=== PATIENT | male | born 1970 | race Caucasian/White ===

== ENCOUNTER 2017-03-29 11:32 | Inpatient (IN) | payer OTHER ==
[2017-03-29] MEDS ORDERED: NACL 0.9% 1000 ML 1,000 ML IV ONE ×3 (11:44→11:50)
[2017-03-29] MEDS ORDERED: ASPIRIN PO ONE (11:44)
--- NOTE | 2017-03-29 11:44 | Emergency Department Report ---
HPI - General Chief Complaint: Cardiac Arrest/CPR Time Seen by Provider: 03/29/17 11:40 - HPI HPI: 46-year-old male presents to the emergency department by EMS after he had a cardiac arrest. The patient was witnessed going down by his coworkers, as he was working outside,a nd the call out to EMS came at 1051 AM. Bystander CPR was started. The patient was found to be in V. tach. He was given 3 defibrillations, 2 rounds of epinephrine, Narcan, and a half amp of sodium bicarbonate. They had return of spontaneous circulation just prior to presentation and the patient presented unconscious, with a Combitube in place, in sinus tach with a pulse. No known past medical history. He has never been to this facility before. ED Past Medical Hx - Past Medical History Previous Medical History?: No - Social History Smoking Status: Never Smoker ED Review of Systems ROS: Stated complaint: CARDIAC ARREST Other details as noted in HPI Comment: Unobtainable due to pts medical conditions Physical Exam - Physical Exam Vital Signs: Vital Signs 03/29/17 11:35 Pulse Rate 122 H Blood Pressure 119/79 O2 Sat by Pulse 94 Oximetry Physical Exam: GENERAL: Patient is ill-appearing and unresponsive. HENT: Normocephalic. Atraumatic. Patient has moist mucous membranes. EYES: Pupils equal reactive to light bilaterally but sluggish. NECK: Supple. Trachea is midline. CHEST/LUNGS: Clear to auscultation. There is no respiratory distress noted. HEART/CARDIOVASCULAR: Regular. There is mild tachycardia. There is no murmur. ABDOMEN: Abdomen is soft, nontender. Patient has normal bowel sounds. There is no abdominal distention. SKIN: Skin is warm and dry. NEURO: The patient is unresponsive to verbal or painful stimuli. MUSCULOSKELETAL: There is no obvious deformity. There is a palpable radial and femoral pulses. Cap refill less than 3 seconds. ED Course Vital Signs 03/29/17 11:35 Pulse Rate 122 H Blood Pressure 119/79 O2 Sat by Pulse 94 Oximetry - Consultations Consultation #1: 03/29/17 11:52 I spoke with the director radiation oncology research home economist, Dr. Friedman, who would like heparin bolus and drip given, rectal aspirin, and then transportation to the Cytogenetics Technologist. - Intubation Time Out Performed: No Sedative: none Laryngoscope: other (glydescop) Size: 4 ET Tube Size: 7.5 Tube Secured Depth (cm): 24 Tube Secured Location: lips Tube Placement Confirmation: visualized tube passing t, equal breath sounds bilat, confirmation by capnometr Patient Tolerated Procedure: well Intubation Complications: none ED Medical Decision Making - Lab Data Result diagrams: 03/29/17 11:40 03/29/17 11:35 - EKG Data -: EKG Interpreted by Me EKG shows normal: sinus rhythm, axis, intervals (right bundle-branch block), QRS complexes, ST-T waves (large ST elevations to the septal and anterior lateral leads, as well as aVR. There is some mild ST depressions in inferior leads) Rate: tachycardia (120 bpm) - EKG Data When compared to previous EKG there are: previous EKG unavailable Interpretation: acute NC - Radiology Data Radiology results: image reviewed interpreted by me: Chest x-ray does not show any acute process. There are no pleural effusions, obvious pneumonia and there is no pneumothorax. - Medical Decision Making The patient presented unresponsive after having out of hospital cardiac arrest and return of spontaneous circulation. EKG done showed concern for anterior ST elevation NC. Code STEMI was called and the patient went to the Cytogenetics Technologist where he had 100% occlusion of the LAD that was ballooned and stented. The patient will go to the ICU. The labs were ordered in the emergency department but did not return until he was artery in the Cytogenetics Technologist. They showed hypokalemia, hyperglycemia. Patient was accepted for admission by the hospitalist, Dr. Garvin. - Differential Diagnosis dysrhythmia, NC, PE, CVA Critical Care Time: Yes Critical care time in (mins) excluding proc time.: 20 Critical care attestation.: If time is entered above; I have spent that time in minutes in the direct care of this critically ill patient, excluding procedure time. Critical care time spent on this patient during his initial violation, multiple re-evaluations, ordering and interpretation of labs, discussion with the director radiation oncology and hospitalist. This does not include the time spent doing the intubation procedure. Critical Care Time: 20 minutes ED Disposition Clinical Impression: Cardiac arrest, Hypokalemia, Hyperglycemia STEMI (ST elevation myocardial infarction) Qualifiers: Involved coronary artery: LAD coronary artery Qualified Code(s): I21.02 - ST elevation (STEMI) myocardial infarction involving left anterior descending coronary artery Respiratory failure Qualifiers: Chronicity: acute Respiratory failure complication: hypoxia Qualified Code(s): J96.01 - Acute respiratory failure with hypoxia Disposition: DC-09 OP ADMIT IP TO THIS HOSP Is pt being admited?: Yes Condition: Critical Time of Disposition: 13:00
[2017-03-29 11:49] LABS: Hematocrit 43.3 % (35.5-45.6); Hemoglobin 14.3 gm/dl (11.8-15.2); Mean Corpuscular HGB Conc 33 % (32-34); Mean Corpuscular Hemoglobin 33 pg (28-32); Mean Corpuscular Volume 98 fl (84-94); Red Cell Distribution Width 14.6 % (13.2-15.2)
[2017-03-29] MEDS ORDERED: HEPARIN IV ONE (11:50)
[2017-03-29] MEDS ORDERED: ASPIRIN PR ONE (11:51)
[2017-03-29 11:53] LABS: Platelet Count 182 K/mm3 (140-440)
[2017-03-29] MEDS ORDERED: HEPARIN/NS 5000 UNIT/500ML(CATH LAB) 1,000 ML IR ONE (11:58)
[2017-03-29] MEDS ORDERED: CALAN ONE (11:59)
[2017-03-29] MEDS ORDERED: XYLOCAINE 2% INFILTRATI ONE (11:59)
[2017-03-29] MEDS ORDERED: NITROGLYCERIN SYRINGE 3 ML ONE (11:59)
[2017-03-29] MEDS ORDERED: VERSED ONE (12:00)
[2017-03-29] MEDS ORDERED: SUBLIMAZE ONE (12:00)
[2017-03-29] MEDS ORDERED: NACL 0.9% 500 ML 500 ML ONE ×2 (12:00→18:01)
[2017-03-29] MEDS ORDERED: HEPARIN/ 0.45% NACL-25,000 UNIT/500 ML 25,000 UNIT/500 ML BAG IV SCH (12:00)
[2017-03-29 12:01] LABS: INR 1.2 (0.87-1.13)
[2017-03-29 12:02] LABS: Partial Thromboplastin Time 34.8 Sec. (24.2-36.6)
[2017-03-29 12:09] LABS: Creatine Kinase MB 2.3 ng/mL (0.0-4.0)
[2017-03-29 12:11] LABS: Alanine Aminotransferase 25 units/L (7-56); Albumin 3.5 g/dL (3.9-5); BUN/Creatinine Ratio 11; Blood Urea Nitrogen 11 mg/dL (9-20); Calcium 8.8 mg/dL (8.4-10.2); Hemolysis Index 18
[2017-03-29] MEDS ORDERED: HEPARIN SUB-Q ONE (12:15)
[2017-03-29] MEDS: HEPARIN 10,000 UNITS/10 ML ONE ×2 (12:36→13:20)
--- NOTE | 2017-03-29 12:49 | History and Physical Report ---
History of Present Illness Chief complaint: Passed out at work History of present illness: 46 YO Male with No PMH presents to ED for evaluation. Pt is unresponsive and unable to provide history. Pt history taken from ED staff and EMS. Pt was at work today and suddenly passed out around 1050 hrs-which was witnessed by patients coworkers. EMS notified, and upon arrival the patient was found to have V Fib. Pt treated IAW ACLS protocol. The patient was given 3 defibrillations, 2 rounds of epinephrine, Narcan, and a half amp of sodium bicarbonate. Pt found to be in respiratory distress and was intubated and placed on vent support. Cardiology team notified, and patient was taken urgently to label printer, and admitted to ICU. Past History Past Medical History: No medical history (Reviewed) Past Surgical History: No surgical history, Other (reviewed.) Social history: single. denies: smoking, alcohol abuse, prescription drug abuse Family history: no significant family history Medications and Allergies Allergies Allergy/AdvReac Type Severity Reaction Status Date / Time No Known Allergies Allergy Unverified 03/29/17 11:35 Active Meds: Active Medications Sodium Chloride (Nacl 0.9% 1000 Ml) 1,000 mls @ 42 mls/hr IV ONCE ONE Stop: 03/30/17 11:32 Sodium Chloride (Nacl 0.9% 1000 Ml) 1,000 mls @ 42 mls/hr IV ONCE ONE Stop: 03/30/17 11:32 Heparin Sodium/Sodium Chloride (Heparin/ 0.45% Nacl-25,000 Unit/500 Ml) 25,000 unit in 500 mls @ 20 mls/hr IV TITRATE CHETAN; 1,000 UNITS/HR PRN Reason: Protocol Sodium Chloride (Nacl 0.9% 1000 Ml) 1,000 mls @ 42 mls/hr IV ONCE ONE Stop: 03/30/17 11:38 Potassium Chloride (Kcl 10meq/100ml) 10 meq in 100 mls @ 100 mls/hr IV ONCE ONE Stop: 03/29/17 15:29 Review of Systems ROS unobtainable: due to mental status Exam - Constitutional Vitals: Temp Pulse Resp BP Pulse Ox 122 H 119/79 94 03/29/17 11:35 03/29/17 11:35 03/29/17 11:35 General appearance: Present: severe distress - EENT Eyes: Present: miosis - Neck Neck: Present: supple, normal ROM - Respiratory Respiratory effort: labored Respiratory: bilateral: diminished - Cardiovascular Heart Sounds: Present: S1 & S2. Absent: rub, click - Extremities Extremities: pulses symmetrical, No edema Peripheral Pulses: within normal limits - Abdominal General gastrointestinal: Present: soft, non-tender, non-distended, normal bowel sounds Male genitourinary: Present: normal - Integumentary Integumentary: Present: clear, warm, dry - Musculoskeletal Musculoskeletal: generalized weakness - Psychiatric Psychiatric: no intact judgment & insight, no memory intact - Neurologic Neurologic: no gait normal Results - Labs CBC & Chem 7: 03/29/17 11:40 03/29/17 11:35 Labs: Abnormal lab results 03/29/17 03/29/17 03/29/17 Range/Units 11:35 11:35 11:40 MCV 98 H (84-94) fl MCH 33 H (28-32) pg PT 15.8 H (12.2-14.9) Sec. INR 1.20 H (0.87-1.13) Potassium 2.7 L* (3.6-5.0) mmol/L Chloride 95.3 L (98-107) mmol/L Carbon Dioxide 17 L (22-30) mmol/L Glucose 435 H (75-100) mg/dL Total Protein 6.1 L (6.3-8.2) g/dL Albumin 3.5 L (3.9-5) g/dL Assessment and Plan - Patient Problems (1) Respiratory failure Current Visit: Yes Status: Acute Qualifiers: Chronicity: acute Respiratory failure complication: hypoxia Qualified Code(s): J96.01 - Acute respiratory failure with hypoxia Plan to address problem: Pt intubated, Placed on vent support, Pulmonary consulted, Wean vent as tolerated, daily SBT, Daily sedation holiday, The high probability of a clinically significant, sudden or life threatening deterioration of the [Pulmonary, cardiac, renal] system(s) required my full and direct attention, intervention and personal management. The aggregate critical care time was [65] minutes. This time is in addition to time spent performing reported procedures but includes the following: [x] Data Review and interpretation [x] Patient assessment and monitoring of vital signs [x] Documentation [x] Medication orders and management (2) CAD (coronary artery disease) Current Visit: Yes Status: Acute Qualifiers: Coronary Disease-Associated Artery/Lesion type: [place] artery [place] vs. transplanted heart: [place] heart Associated angina: with unstable angina Qualified Code(s): I25.110 - Atherosclerotic heart disease of [place] coronary artery with unstable angina pectoris Plan to address problem: Cardiology consulted, Pt taken to label printer, heparin drip, (3) Cardiac arrest Current Visit: Yes Status: Acute Plan to address problem: Pt taken to label printer, heparin drip, cardiology consulted, IV pressor support as clinically indicated, (4) STEMI (ST elevation myocardial infarction) Current Visit: Yes Status: Acute Qualifiers: Involved coronary artery: LAD coronary artery Qualified Code(s): I21.02 - ST elevation (STEMI) myocardial infarction involving left anterior descending coronary artery Plan to address problem: Cardiology consulted, Cardiac cath, heparin drip, ICU monitoring, supportive care. (5) DVT prophylaxis Current Visit: Yes Status: Acute
[2017-03-29] MEDS ORDERED: PROVENTIL IH PRN (12:55)
[2017-03-29] MEDS ORDERED: D50W (25GM) Syringe IV PRN (12:55)
[2017-03-29] MEDS ORDERED: MIDAZOLAM 100 MG in NACL 0.9% 80 ML IV SCH ×2 (13:00→17:00)
[2017-03-29] MEDS ORDERED: fentaNYL DRIP Premix 2,000 MCG/100 ML BAG IV SCH (13:00)
[2017-03-29] MEDS ORDERED: AGGRASTAT DRIP (12.5 MG/250 ML) 12,500 MCG/250 ML BAG IV ONE (13:06)
[2017-03-29 13:16] LABS: Total Cells Counted 100
[2017-03-29 13:17] LABS: Anisocytosis Few; Band Neutrophils # (Manual) 0.2 K/mm3; Basophils % (Manual) 0 % (0.0-1.8)
[2017-03-29] MEDS ORDERED: AGGRASTAT DRIP (12.5 MG/250 ML) 12,500 MCG/250 ML BAG IV SCH (13:30)
--- NOTE | 2017-03-29 13:45 | Consultation ---
History of Present Illness Consult date: 03/29/17 Consult reason: cardiac arrest History of present illness: 46y M who presented with out of hospital VF arrest. Post resuscitation ECG in ER was acute anterior STEMI. Emergency cath protocol called, we found 100% occlusion of the LAD in its prox- mid segment. Successful primari PCI-angioplasty and 3.0-3.5mm BM stents deployed. LAD flow restored-excellent result. Admit for post MS supportive menegement. Past History Family history: CAD Medications and Allergies Allergies Allergy/AdvReac Type Severity Reaction Status Date / Time No Known Allergies Allergy Unverified 03/29/17 11:35 Active Meds: Active Medications Albuterol (Proventil) 2.5 mg IH Q3HRT PRN PRN Reason: Shortness Of Breath Atorvastatin Calcium (Lipitor) 20 mg PO QHS CHETAN Clopidogrel Bisulfate (Plavix) 75 mg PO QDAY CHETAN Dextrose (D50w (25gm) Syringe) 50 ml IV PRN PRN PRN Reason: Hypoglycemia Sodium Chloride (Nacl 0.9% 1000 Ml) 1,000 mls @ 42 mls/hr IV ONCE ONE Stop: 03/30/17 11:32 Sodium Chloride (Nacl 0.9% 1000 Ml) 1,000 mls @ 42 mls/hr IV ONCE ONE Stop: 03/30/17 11:32 Heparin Sodium/Sodium Chloride (Heparin/ 0.45% Nacl-25,000 Unit/500 Ml) 25,000 unit in 500 mls @ 20 mls/hr IV TITRATE CHETAN; 1,000 UNITS/HR PRN Reason: Protocol Sodium Chloride (Nacl 0.9% 1000 Ml) 1,000 mls @ 42 mls/hr IV ONCE ONE Stop: 03/30/17 11:38 Potassium Chloride (Kcl 10meq/100ml) 10 meq in 100 mls @ 100 mls/hr IV ONCE ONE Stop: 03/29/17 15:29 Fentanyl Citrate (Fentanyl Drip Premix) 2,000 mcg in 100 mls @ 4.309 mls/hr IV TITR CHETAN; 1 MCG/KG/HR PRN Reason: Protocol Midazolam HCl 100 mg/ Sodium (Chloride) 100 mls @ 2 mls/hr IV TITR CHETAN; 2 MG/HR PRN Reason: Protocol Sodium Chloride (Nacl 0.9% 1000 Ml) 1,000 mls @ 100 mls/hr IV DIRECT CHETAN Stop: 03/30/17 01:59 Lisinopril (Zestril) 5 mg PO QDAY [facility] Metoprolol Tartrate (Lopressor) 50 mg PO BID [facility] Nitroglycerin (Nitro-Bid 2%) 1 inch TP QIDNTG CHETAN PRN Reason: Protocol Pantoprazole Sodium (Protonix) 40 mg PO QDAY [facility] Review of Systems ROS unobtainable: due to endotracheal tube, due to mental status Physical Examination Vital Signs Pulse BP Pulse Ox 122 H 119/79 94 03/29/17 11:35 03/29/17 11:35 03/29/17 11:35 General appearance: other (unresponsive, vent) HEENT: Positive: Other (unresponsive, vent) Neck: Positive: neck supple Cardiac: Positive: Reg Rate and Rhythm Lungs: Positive: Decreased Breath Sounds Neuro: Positive: Other (unresponsive post VF arrest) Abdomen: Positive: Soft Male genitourinary: Positive: deferred Skin: Positive: Clear Extremities: Absent: edema Results 03/29/17 11:40 03/29/17 11:35 Cardiac Enzymes 03/29/17 Range/Units 11:35 AST 32 (5-40) units/L CK-MB (CK-2) 2.3 (0.0-4.0) ng/mL Coagulation 03/29/17 Range/Units 11:35 PT 15.8 H (12.2-14.9) Sec. INR 1.20 H (0.87-1.13) APTT 34.8 (24.2-36.6) Sec. CBC 03/29/17 Range/Units 11:40 WBC 10.5 (4.5-11.0) K/mm3 RBC 4.40 (3.65-5.03) M/mm3 Hgb 14.3 (11.8-15.2) gm/dl Hct 43.3 (35.5-45.6) % Plt Count 182 (140-440) K/mm3 Comprehensive Metabolic Panel 03/29/17 Range/Units 11:35 Sodium 141 (137-145) mmol/L Potassium 2.7 L* (3.6-5.0) mmol/L Chloride 95.3 L (98-107) mmol/L Carbon Dioxide 17 L (22-30) mmol/L BUN 11 (9-20) mg/dL Creatinine 1.0 (0.8-1.5) mg/dL Glucose 435 H (75-100) mg/dL Calcium 8.8 (8.4-10.2) mg/dL AST 32 (5-40) units/L ALT 25 (7-56) units/L Alkaline Phosphatase 112 (35-129) units/L Total Protein 6.1 L (6.3-8.2) g/dL Albumin 3.5 L (3.9-5) g/dL EKG interpretations - Telemetry EKG Rhythm: Sinus Rhythm Assessment and Plan - Patient Problems (1) Cardiac arrest Current Visit: Yes Status: Acute Plan to address problem: Emergency cath protocol called, we found 100% occlusion of the LAD in its prox- mid segment. Successful primari PCI-angioplasty and 3.0-3.5mm BM stents deployed. LAD flow restored-excellent result. (2) STEMI (ST elevation myocardial infarction) Current Visit: Yes Status: Acute Plan to address problem: Emergency cath protocol called, we found 100% occlusion of the LAD in its prox- mid segment. Successful primari PCI-angioplasty and 3.0-3.5mm BM stents deployed. LAD flow restored-excellent result.
--- NOTE | 2017-03-29 13:59 | Cardiac Catherization Report ---
CARDIAC CATHETERIZATION AND CORONARY ANGIOPLASTY REASON FOR PROCEDURE: The patient is a 46-year-old man with a strong history of coronary artery disease, but no previous personal cardiac history. He was brought to the Emergency Room following an out of hospital cardiac arrest. He apparently had been defibrillated x 3 in the field. In the Emergency Room, he was resuscitated and post-resuscitation ECG demonstrated acute anterior wall ST elevation myocardial infarction. Emergency cardiac catheterization protocol was activated and we were asked to perform an emergency cardiac catheterization. On arrival to the chemical laboratory assistant, the patient is unresponsive, on the ventilator. Blood pressure was 110 systolic and sinus rhythm at 90 beats per minute. PROCEDURE: 1. Selective left and right coronary angiography. 2. Left heart catheterization. 3. Angioplasty and coronary stenting of the left anterior descending artery. DESCRIPTION OF PROCEDURE: The patient was prepped and draped under emergency protocol. Right femoral artery was entered using the Seldinger technique followed by placement of a 6-Welsh sheath. Selective left and right coronary angiography was performed. A right L[place] diagnostic catheter was used for right coronary angiography. A 3.5 XB guiding catheter was used for left ventricle angiography. The angiograms were reviewed. The right coronary artery was a small caliber, nondominant vessel that contained mild irregularities. The left main coronary artery was free of significant disease. The left anterior descending artery was completely occluded in its proximal segment following a proximal, medium sized diagonal branch. The complete occlusion of the proximal LAD is infarct-related lesion. The circumflex artery was a large dominant system. There was a 50-60% ostial narrowing of the mid obtuse marginal branch, otherwise the circumflex and its distal branches including the left posterior descending branch contained mild irregularities. CORONARY ANGIOPLASTY: Ad-hoc, primary angioplasty of the LAD was performed. We introduced a 0.014 inch Fiction Writer 50 guidewire, successfully penetrating the occluded vessel. Following wire placement in the LAD, we performed a balloon angioplasty using a 3.0 mm balloon catheter. Following this, ANDREW 3 flow was restored, but there was significant residual occlusive lesion at the primary site. We then deployed serial 3.0-3.5 mm bare metal stents covering the entire lesional segment of the proximal to mid LAD. Following stenting, there was an excellent angiographic result at the treated site, 0 residual stenosis, and ANDREW 3 flow was restored. There was mild ostial narrowing of the diagonal branch adjacent to the lesional segment. This was due to stent detention from the newly deployed LAD stent. ANDREW 3 flow was maintained in the branch vessel and no further interventions were recommended for this mild ostial narrowing of the diagonal. Following the procedure, the patient remained in stable sinus rhythm with stable hemodynamics. He remains in critical condition on the ventilator, unresponsive, and thus admitted to the CCU. CONCLUSION: 1. Acute anterior wall myocardial infarction complicated by an out of hospital cardiac arrest. 2. Emergency cardiac catheterization. 3. A 100% occlusion of the proximal left anterior descending artery. 4. Successful primary angioplasty and stenting of the LAD, 3.0-3.5 mm bare metal stents with jewish of ANDREW 3 flow. JOB# [id number] CARMEN/JENNIFER
[2017-03-29] MEDS ORDERED: NACL 0.9% 1000 ML 1,000 ML IV SCH (14:00)
[2017-03-29] MEDS ORDERED: ATIVAN ONE (14:21)
[2017-03-29] MEDS ORDERED: NACL 0.9% 1000 ML 1,000 ML ONE (14:26)
[2017-03-29] MEDS ORDERED: KCL 10MEQ/100ML 10 MEQ/100 ML BAG IV ONE (14:30)
[2017-03-29] MEDS ORDERED: VERSED IV ONE ×2 (14:41→16:00)
--- NOTE | 2017-03-29 15:14 | Event Note ---
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 ATivan 2 mg given prior to my arrival but on my order. Patient not seizing at the moment. Unfortunately is still having myoclonic jerking, likely secondary to anoxic brain injury from poor perfusion during Vfib arrest. Started on Versed drip but will wean aggressively. Tachycardic and normal BP. Has thick brown secretions from nose. Asked nursing to place NG tube and go on intermittent suction. Will place lazaro. Vent orders placed. ABG donew with PaO2 of 602 on 10 of PEEP and 100%. pH is 7.29. Spoke with family in waiting room. Significant history of cardiac disease in family and first degree relative. Explained that prognosis right now is poor, based up neurologic findings. As I explained to the family, patient was not responsive, prior to administration of ant-epileptic therapy. Suggest the followin. Neuro consult with EEG 2. Vent support 3. NG tube to suction for next 24 hours, if miminal output feed 4. Defer to cards but may need echo 5. Electrolyte replacement and glucose control per IMS 6. Place lazaro 7. Wean sedation. CCT 31 minutes.
[2017-03-29] MEDS ORDERED: ATIVAN IV ONE (15:15)
--- NOTE | 2017-03-29 15:37 | XRay Report ---
AP chest x-ray. History: Chest pain. Findings: The heart and lungs are within normal limits. An endotracheal tube is in satisfactory position.
--- NOTE | 2017-03-29 15:38 | XRay Report ---
AP chest x-ray. History: ET tube placement. Findings: The heart and lungs are within normal limits. Endotracheal tube is in satisfactory position.
[2017-03-29] MEDS: NITRO-BID 2% TP SCH ×2 (15:48→20:23)
[2017-03-29] MEDS ORDERED: LEVOPHED DRIP 4 MG/NS 250 ML 4 MG/250 ML BAG IV ONE (16:17)
[2017-03-29] MEDS ORDERED: DIPRIVAN 10 MG/ML 1,000 MG/100 ML BOTTLE IV ONE (16:55)
--- NOTE | 2017-03-29 16:56 | Event Note ---
Date: 03/29/17 Called by nursing, despite versed drip, patient continues to have convulsions. Will have to start propofol drip. No ideal given current clinical state but need to attempt to abort jerking activity. Will ask RT to place art line.
[2017-03-29] MEDS: DIPRIVAN 10 MG/ML 1,000 MG/100 ML BOTTLE IV SCH ×3 (17:47→23:49)
[2017-03-29 21:22] LABS: Chol/HDL Ratio 3.72 %; HDL Cholesterol 44 mg/dL (40-59); LDL Cholesterol,Direct 81 mg/dL (50-130)
[2017-03-29 21:49] LABS: Creatine Kinase MB > 300.0 ng/mL (0.0-4.0)
[2017-03-29] MEDS: LEVOPHED DRIP 4 MG/NS 250 ML 4 MG/250 ML BAG IV SCH (22:19)
[2017-03-29] MEDS: LOPRESSOR PO SCH (22:22)
--- NOTE | 2017-03-30 02:31 | XRay Report ---
FINAL REPORT EXAM: XR CHEST 1V AP HISTORY: post pci TECHNIQUE: A portable semi-erect view of the chest was obtained. There are no previous studies available for comparison. FINDINGS: Heart size mediastinum appear normal. The lungs are not overtly congested. There is patchy airspace disease in the medial aspect of the right lung base. Pleural fluid is not seen. The tip of the ET tube is 3.8 cm above the khurram. There is an NG tube coursing into the stomach. The bones and soft tissues otherwise do not show any acute changes. IMPRESSION: Satisfactory intubation and placement NG tube. Patchy airspace disease in the right lung base. Underlying pneumonia cannot be excluded.
[2017-03-30] MEDS: DIPRIVAN 10 MG/ML 1,000 MG/100 ML BOTTLE IV SCH ×2 (03:22→07:10)
[2017-03-30 04:28] LABS: Hematocrit 42.6 % (35.5-45.6); Hemoglobin 14.5 gm/dl (11.8-15.2); Mean Corpuscular HGB Conc 34 % (32-34); Mean Corpuscular Hemoglobin 32 pg (28-32); Mean Corpuscular Volume 93 fl (84-94); Platelet Count 192 K/mm3 (140-440); Red Blood Count 4.57 M/mm3 (3.65-5.03)
[2017-03-30 04:48] LABS: BUN/Creatinine Ratio 28; Blood Urea Nitrogen 25 mg/dL (9-20); Calcium 8.1 mg/dL (8.4-10.2); Hemolysis Index 6
[2017-03-30 05:14] LABS: Creatine Kinase MB > 300.0 ng/mL (0.0-4.0)
[2017-03-30 05:53] LABS: Band Neutrophils # (Manual) 3.3 K/mm3; Basophils % (Manual) 0 % (0.0-1.8); Eosinophils % (Manual) 0 % (0.0-4.3); Total Cells Counted 100
[2017-03-30 05:54] LABS: Anisocytosis Few
[2017-03-30] MEDS: NITRO-BID 2% TP SCH ×4 (06:24→17:28)
[2017-03-30] MEDS: LEVOPHED DRIP 4 MG/NS 250 ML 4 MG/250 ML BAG IV SCH (07:07)
--- NOTE | 2017-03-30 08:09 | Progress Note ---
Assessment and Plan Assessment and plan: 46 YO Male with No PMH presents to ED for evaluation. Pt is unresponsive and unable to provide history. Pt history taken from ED staff and EMS. Pt was at work today and suddenly passed out around 1050 hrs-which was witnessed by patients coworkers. EMS notified, and upon arrival the patient was found to have V Fib. Pt treated IAW ACLS protocol. The patient was given 3 defibrillations, 2 rounds of epinephrine, Narcan, and a half amp of sodium bicarbonate. Pt found to be in respiratory distress and was intubated and placed on vent support. Cardiology team notified, and patient was taken urgently to label drier, and admitted to ICU. Acute Respiratory failure requiring MV <96 hours Pt intubated, Placed on vent support, Pulmonary consulted, Wean vent as tolerated, daily SBT, Daily sedation holiday, Anterior STEMI sp cardiac arrest case dw cardiology Emergency cath protocol called upon arrival, we found 100% occlusion of the LAD in its prox-mid segment. Successful primari PCI-angioplasty and 3.0-3.5mm BM stents deployed. LAD flow restored-excellent result. Heparin drip was discontinued per cardiology, optimize meds Shock -Likely cardiogenic and possibly also septic shock Currently off pressors, has been weaned Sepsis/Right lower lobe aspiration pneumonia, most likely due to gram-positive bacteria -Started on Zosyn and Vanco, obtain sputum cultures, obtain UA and urine culture -Infectious disease consults Hypokalemia Now resolved Acute encephalopathy Most likely anoxic brain injury, patient has been off sedation and still obtunded and nonresponsive. He likely had aprolonged period of time without perfusion to his brain. We will continue to monitor his mental status, -We'll also obtain brain imaging tomorrow morning and have a family meeting him a and urology consult. The high probability of a clinically significant, sudden or life threatening deterioration of the [Pulmonary, cardiac, renal] system(s) required my full and direct attention, intervention and personal management. The aggregate critical care time was [65] minutes. This time is in addition to time spent performing reported procedures but includes the following: [x] Data Review and interpretation [x] Patient assessment and monitoring of vital signs [x] Documentation [x] Medication orders and management History Interval history: Patient is nonresponsive, lacks most reflexes No fever, no vomiting, no agitation Hospitalist Physical - Physical exam Narrative exam: General.: Comatose HEENT: Moist mucous membranes, extraocular muscles intact, no lymphadenopathy Neck: supple Cardiac: S1-S2 heard Lungs: clear to auscultation bilaterally Abdomen: soft , nontender, nondistended, bowel sounds positive Extremities: no edema clubbing or cyanosis Skin: no rash or lesions Neurologic: Patient is in deep coma - Constitutional Vitals: Temp Pulse Resp BP Pulse Ox 99.2 F 109 H 20 117/69 94 03/30/17 04:00 03/30/17 07:00 03/30/17 07:00 03/30/17 07:00 03/30/17 07:00 General appearance: Present: severe distress Results - Labs CBC & Chem 7: 03/30/17 03:50 03/30/17 03:50 Labs: Laboratory Last Values WBC 19.5 K/mm3 (4.5-11.0) H 03/30/17 03:50 RBC 4.57 M/mm3 (3.65-5.03) 03/30/17 03:50 Hgb 14.5 gm/dl (11.8-15.2) 03/30/17 03:50 Hct 42.6 % (35.5-45.6) 03/30/17 03:50 MCV 93 fl (84-94) 03/30/17 03:50 MCH 32 pg (28-32) 03/30/17 03:50 MCHC 34 % (32-34) 03/30/17 03:50 RDW 14.0 % (13.2-15.2) 03/30/17 03:50 Plt Count 192 K/mm3 (140-440) 03/30/17 03:50 Add Manual Diff Complete 03/30/17 03:50 Total Counted 100 03/30/17 03:50 Seg Neuts % (Manual) 65.0 % (40.0-70.0) 03/30/17 03:50 Band Neutrophils % 17.0 % 03/30/17 03:50 Lymphocytes % (Manual) 7.0 % (13.4-35.0) L 03/30/17 03:50 Reactive Lymphs % (Man) 0 % 03/30/17 03:50 Monocytes % (Manual) 7.0 % (0.0-7.3) 03/30/17 03:50 Eosinophils % (Manual) 0 % (0.0-4.3) 03/30/17 03:50 Basophils % (Manual) 0 % (0.0-1.8) 03/30/17 03:50 Metamyelocytes % 4.0 % 03/30/17 03:50 Myelocytes % 0 % 03/30/17 03:50 Promyelocytes % 0 % 03/30/17 03:50 Blast Cells % 0 % 03/30/17 03:50 Nucleated RBC % Not Reportable 03/30/17 03:50 Seg Neutrophils # Man 12.7 K/mm3 (1.8-7.7) H 03/30/17 03:50 Band Neutrophils # 3.3 K/mm3 03/30/17 03:50 Lymphocytes # (Manual) 1.4 K/mm3 (1.2-5.4) 03/30/17 03:50 Abs React Lymphs (Man) 0.0 K/mm3 03/30/17 03:50 Monocytes # (Manual) 1.4 K/mm3 (0.0-0.8) H 03/30/17 03:50 Eosinophils # (Manual) 0.0 K/mm3 (0.0-0.4) 03/30/17 03:50 Basophils # (Manual) 0.0 K/mm3 (0.0-0.1) 03/30/17 03:50 Metamyelocytes # 0.8 K/mm3 03/30/17 03:50 Myelocytes # 0.0 K/mm3 03/30/17 03:50 Promyelocytes # 0.0 K/mm3 03/30/17 03:50 Blast Cells # 0.0 K/mm3 03/30/17 03:50 WBC Morphology Not Reportable 03/30/17 03:50 Hypersegmented Neuts Not Reportable 03/30/17 03:50 Hyposegmented Neuts Not Reportable 03/30/17 03:50 Hypogranular Neuts Not Reportable 03/30/17 03:50 Smudge Cells Not Reportable 03/30/17 03:50 Toxic Granulation Not Reportable 03/30/17 03:50 Toxic Vacuolation Not Reportable 03/30/17 03:50 Dohle Bodies Not Reportable 03/30/17 03:50 Pelger-Huet Anomaly Not Reportable 03/30/17 03:50 Sherry Rods Not Reportable 03/30/17 03:50 Platelet Estimate Appears normal 03/30/17 03:50 Clumped Platelets Not Reportable 03/30/17 03:50 Plt Clumps, EDTA Not Reportable 03/30/17 03:50 Large Platelets Not Reportable 03/30/17 03:50 Giant Platelets Not Reportable 03/30/17 03:50 Platelet Satelliting Not Reportable 03/30/17 03:50 Plt Morphology Comment Not Reportable 03/30/17 03:50 RBC Morphology Not Reportable 03/30/17 03:50 Dimorphic RBCs Not Reportable 03/30/17 03:50 Polychromasia Not Reportable 03/30/17 03:50 Hypochromasia Not Reportable 03/30/17 03:50 Poikilocytosis Not Reportable 03/30/17 03:50 Anisocytosis Few 03/30/17 03:50 Microcytosis Not Reportable 03/30/17 03:50 Macrocytosis Not Reportable 03/30/17 03:50 Spherocytes Not Reportable 03/30/17 03:50 Pappenheimer Bodies Not Reportable 03/30/17 03:50 Sickle Cells Not Reportable 03/30/17 03:50 Target Cells Not Reportable 03/30/17 03:50 Tear Drop Cells Not Reportable 03/30/17 03:50 Ovalocytes Not Reportable 03/30/17 03:50 Helmet Cells Not Reportable 03/30/17 03:50 [place] Bodies Not Reportable 03/30/17 03:50 [place] Rings Not Reportable 03/30/17 03:50 [place] Cells Not Reportable 03/30/17 03:50 Bite Cells Not Reportable 03/30/17 03:50 Crenated Cell Not Reportable 03/30/17 03:50 Elliptocytes Not Reportable 03/30/17 03:50 Acanthocytes (Spur) Not Reportable 03/30/17 03:50 Rouleaux Not Reportable 03/30/17 03:50 Hemoglobin C Crystals Not Reportable 03/30/17 03:50 Schistocytes Not Reportable 03/30/17 03:50 Malaria parasites Not Reportable 03/30/17 03:50 Jermaine Bodies Not Reportable 03/30/17 03:50 Hem Pathologist Commnt No 03/30/17 03:50 PT 15.8 Sec. (12.2-14.9) H 03/29/17 11:35 INR 1.20 (0.87-1.13) H 03/29/17 11:35 APTT 34.8 Sec. (24.2-36.6) 03/29/17 11:35 Activated Clotting Time 92 (74-137) 03/29/17 17:47 POC ABG pH 7.434 (7.35-7.45) 03/30/17 06:19 POC ABG pCO2 28.2 (35-45) L 03/30/17 06:19 POC ABG pO2 108 (80-105) H 03/30/17 06:19 POC ABG HCO3 18.9 03/30/17 06:19 POC ABG Total CO2 20 03/30/17 06:19 POC ABG O2 Sat 98 03/30/17 06:19 POC ABG Base Excess -5 03/30/17 06:19 FiO2 50 % 03/30/17 06:19 Sodium 143 mmol/L (137-145) 03/30/17 03:50 Potassium 3.8 mmol/L (3.6-5.0) D 03/30/17 03:50 Chloride 108.9 mmol/L (98-107) H 03/30/17 03:50 Carbon Dioxide 15 mmol/L (22-30) L 03/30/17 03:50 Anion Gap 23 mmol/L 03/30/17 03:50 BUN 25 mg/dL (9-20) H 03/30/17 03:50 Creatinine 0.9 mg/dL (0.8-1.5) 03/30/17 03:50 Estimated GFR > 60 ml/min 03/30/17 03:50 BUN/Creatinine Ratio 28 % 03/30/17 03:50 Glucose 158 mg/dL (75-100) H 03/30/17 03:50 Calcium 8.1 mg/dL (8.4-10.2) L 03/30/17 03:50 Total Bilirubin 0.50 mg/dL (0.1-1.2) 03/29/17 11:35 AST 32 units/L (5-40) 03/29/17 11:35 ALT 25 units/L (7-56) 03/29/17 11:35 Alkaline Phosphatase 112 units/L (35-129) 03/29/17 11:35 Total Creatine Kinase 7963 units/L (55-170) H 03/30/17 03:50 CK-MB (CK-2) > 300.0 ng/mL (0.0-4.0) H 03/30/17 03:50 CK-MB (CK-2) Rel Index 3.7 (0-4) 03/30/17 03:50 Troponin T 6.850 ng/mL (0.00-0.029) H* 03/30/17 03:50 Total Protein 6.1 g/dL (6.3-8.2) L 03/29/17 11:35 Albumin 3.5 g/dL (3.9-5) L 03/29/17 11:35 Albumin/Globulin Ratio 1.3 % 03/29/17 11:35 Triglycerides 195 mg/dL (2-149) H 03/29/17 19:52 Cholesterol 164 mg/dL (50-199) 03/29/17 19:52 LDL Cholesterol Direct 81 mg/dL (50-130) 03/29/17 19:52 HDL Cholesterol 44 mg/dL (40-59) 03/29/17 19:52 Cholesterol/HDL Ratio 3.72 % 03/29/17 19:52 Blood Type O POSITIVE 03/29/17 11:35 Antibody Screen Negative 03/29/17 11:35
[2017-03-30] MEDS: PLAVIX PO SCH (10:00)
[2017-03-30] MEDS ORDERED: VANCOMYCIN PHARMACY TO DOSE IV SCH (10:00)
[2017-03-30] MEDS: PROTONIX PO SCH (10:00)
--- NOTE | 2017-03-30 10:25 | Progress Note ---
Assessment and Plan Out of hospital VF arrest Acute anterior STEMI. s/p PCI of the LAD using BM stents deployed. Respiratory failure intubated on the vent Continue medical therapy with plavix and aspirin without interruption. Echocardiogram for LVEF assessment. Subjective Date of service: 03/30/17 Interval history: Patient remains intubated, unresponsive on the vent. Objective Vital Signs Temp Pulse Resp BP Pulse Ox 03/30/17 10:00 118 H 116/68 03/30/17 09:55 118 H 116/77 94 03/30/17 09:00 113 H 30 H 116/77 96 03/30/17 08:45 110 H 19 106/58 95 03/30/17 08:31 109 H 20 106/58 95 03/30/17 08:15 109 H 22 106/58 94 03/30/17 08:00 99.2 F 108 H 22 106/58 92 03/30/17 07:45 109 H 21 120/68 95 03/30/17 07:31 109 H 23 120/68 95 03/30/17 07:15 112 H 35 H 120/68 95 03/30/17 07:00 109 H 20 117/69 94 03/30/17 06:45 108 H 24 106/59 94 03/30/17 06:30 106 H 25 H 107/61 93 03/30/17 06:15 107 H 32 H 102/60 94 03/30/17 06:00 107 H 29 H 110/63 94 03/30/17 05:45 104 H 32 H 107/62 94 03/30/17 05:30 104 H 29 H 107/63 95 03/30/17 05:15 105 H 25 H 106/61 97 03/30/17 05:01 112 H 16 114/64 96 03/30/17 04:45 107 H 22 110/66 95 03/30/17 04:31 108 H 29 H 108/65 96 03/30/17 04:15 108 H 25 H 111/66 96 03/30/17 04:00 99.2 F 108 H 21 107/68 96 03/30/17 03:45 107 H 22 111/68 03/30/17 03:34 107 H 108/71 98 03/30/17 03:30 107 H 30 H 108/71 96 03/30/17 03:15 107 H 25 H 107/66 96 03/30/17 03:00 106 H 23 106/66 95 03/30/17 02:45 106 H 22 105/68 94 03/30/17 02:31 113 H 34 H 98/64 95 03/30/17 02:15 106 H 29 H 107/62 03/30/17 02:00 107 H 26 H 119/76 94 03/30/17 01:45 109 H 29 H 108/69 95 03/30/17 01:30 108 H 29 H 114/66 96 03/30/17 01:15 110 H 21 110/71 96 03/30/17 01:00 112 H 37 H 116/64 98 03/30/17 00:45 110 H 21 103/68 96 03/30/17 00:31 112 H 30 H 117/64 97 03/30/17 00:15 110 H 32 H 102/66 97 03/30/17 00:01 112 H 31 H 116/65 96 03/30/17 00:00 100 F H 22 100 03/29/17 23:49 113 H 37 H 104/64 98 03/29/17 23:45 114 H 37 H 105/60 98 03/29/17 23:34 112 H 105/70 98 03/29/17 23:30 116 H 29 H 105/70 96 03/29/17 23:15 116 H 40 H 117/67 97 03/29/17 23:00 115 H 31 H 100/70 96 03/29/17 22:45 117 H 30 H 103/70 96 03/29/17 22:30 116 H 25 H 112/68 97 03/29/17 22:15 114 H 30 H 104/67 96 03/29/17 22:01 126 H 17 100/68 96 03/29/17 22:00 120 H 38 H 99 03/29/17 21:45 121 H 31 H 108/73 97 03/29/17 21:30 122 H 32 H 117/72 97 03/29/17 21:15 122 H 31 H 121/41 03/29/17 21:01 127 H 20 96/69 98 03/29/17 20:45 123 H 15 103/55 99 03/29/17 20:31 129 H 18 99/67 03/29/17 20:15 127 H 44 H 95/31 99 03/29/17 20:01 132 H 28 H 105/59 100 03/29/17 20:00 100.1 F H 37 H 99 03/29/17 19:51 130 H 44 H 101/58 100 03/29/17 19:42 127 H 84/58 99 03/29/17 19:41 128 H 45 H 101/58 99 03/29/17 19:31 130 H 47 H 101/58 99 03/29/17 19:20 128 H 43 H 105/59 97 03/29/17 19:10 125 H 50 H 101/65 97 03/29/17 19:00 127 H 46 H 91/67 97 03/29/17 18:51 128 H 49 H 94/64 99 03/29/17 18:41 126 H 28 H 98/66 99 03/29/17 18:30 130 H 39 H 98/66 99 03/29/17 18:21 130 H 37 H 89/60 98 03/29/17 18:11 126 H 51 H 92/63 98 03/29/17 18:00 131 H 47 H 92/63 99 03/29/17 17:51 131 H 40 H 93/63 98 03/29/17 17:47 42 H 03/29/17 17:41 130 H 48 H 99/65 98 03/29/17 17:30 135 H 49 H 99/65 96 03/29/17 17:21 150 H 37 H 181/96 99 03/29/17 17:11 167 H 25 H 181/96 98 03/29/17 17:01 156 H 34 H 142/117 88 03/29/17 16:53 100.4 F H 03/29/17 16:51 135 H 40 H 142/117 100 03/29/17 16:50 153 H 142/117 99 03/29/17 16:41 133 H 33 H 150/107 98 03/29/17 16:31 116 H 35 H 40/15 99 03/29/17 16:30 127 H 84/58 99 03/29/17 16:21 118 H 23 100 03/29/17 16:10 102 H 38 H 70/32 99 03/29/17 16:00 108 H 29 H 70/32 100 03/29/17 15:50 114 H 29 H 99 03/29/17 15:42 113 H 38 H 03/29/17 15:00 117 H 20 138/79 99 03/29/17 14:50 119 H 35 H 124/86 99 03/29/17 14:45 122 H 35 H 111/83 99 03/29/17 14:11 97.9 F 100 H 29 H 152/121 97 03/29/17 11:51 119 H 13 149/104 100 03/29/17 11:40 118 H 11 L 149/104 99 03/29/17 11:35 122 H 119/79 94 03/29/17 11:33 113 H 28 H 93 - Physical Examination General: Other (unresponsive on the vent) Cardiac: Positive: Tachycardia Neuro: Positive: Other (unresponsive post VF arrest) Abdomen: Positive: Soft Skin: Positive: Clear Extremities: Absent: edema - Labs and Meds Cardiac Enzymes 03/29/17 03/29/17 03/30/17 Range/Units 11:35 19:52 03:50 AST 32 (5-40) units/L CK-MB (CK-2) 2.3 > 300.0 H > 300.0 H (0.0-4.0) ng/mL Coagulation 03/29/17 Range/Units 11:35 PT 15.8 H (12.2-14.9) Sec. INR 1.20 H (0.87-1.13) APTT 34.8 (24.2-36.6) Sec. Lipids 03/29/17 Range/Units 19:52 Triglycerides 195 H (2-149) mg/dL Cholesterol 164 (50-199) mg/dL HDL Cholesterol 44 (40-59) mg/dL Cholesterol/HDL Ratio 3.72 % CBC 03/29/17 03/30/17 Range/Units 11:40 03:50 WBC 10.5 19.5 H (4.5-11.0) K/mm3 RBC 4.40 4.57 (3.65-5.03) M/mm3 Hgb 14.3 14.5 (11.8-15.2) gm/dl Hct 43.3 42.6 (35.5-45.6) % Plt Count 182 192 (140-440) K/mm3 Comprehensive Metabolic Panel 03/29/17 03/30/17 Range/Units 11:35 03:50 Sodium 141 143 (137-145) mmol/L Potassium 2.7 L* 3.8 D (3.6-5.0) mmol/L Chloride 95.3 L 108.9 H (98-107) mmol/L Carbon Dioxide 17 L 15 L (22-30) mmol/L BUN 11 25 H (9-20) mg/dL Creatinine 1.0 0.9 (0.8-1.5) mg/dL Glucose 435 H 158 H (75-100) mg/dL Calcium 8.8 8.1 L (8.4-10.2) mg/dL AST 32 (5-40) units/L ALT 25 (7-56) units/L Alkaline Phosphatase 112 (35-129) units/L Total Protein 6.1 L (6.3-8.2) g/dL Albumin 3.5 L (3.9-5) g/dL
[2017-03-30] MEDS: LOPRESSOR PO SCH ×2 (10:26→21:30)
[2017-03-30] MEDS ORDERED: PLAVIX PO ONE (11:00)
[2017-03-30 11:15] LABS: Cannabinoid Screen,Urine PRESUMPTIVE NEGATIVE; Cocaine Screen,Urine PRESUMPTIVE NEGATIVE; Methadone Screen,Urine PRESUMPTIVE NEGATIVE; Opiate Screen,Urine PRESUMPTIVE NEGATIVE
[2017-03-30 11:32] LABS: Amphetamine Screen,Urine PRESUMPTIVE POSITIVE; Benzodiazepines Screen,Urine PRESUMPTIVE POSITIVE
[2017-03-30 11:42] LABS: Amorphous Crystals,Urine 1+; Bilirubin,Urine NEG (Negative); Blood,Urine MOD (Negative); Color,Urine Yellow (Yellow); Urobilinogen,Urine < 2.0 mg/dL (<2.0)
[2017-03-30] MEDS ORDERED: PANCREAZE DR 10,500 UNIT FEEDTUBE PRN (12:06)
[2017-03-30] MEDS ORDERED: SIMPLE SYRUP FEEDTUBE PRN ×2 (12:06)
[2017-03-30] MEDS ORDERED: SODIUM BICARBONATE FEEDTUBE PRN (12:06)
--- NOTE | 2017-03-30 12:07 | Progress Note ---
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 1. Cardiac meds should be administered now that more hemodynamically stable 2. Now that off sedation, needs EEG 3. Follow up Echo 4. Would hold on on long acting antiepileptic therapy and if patient seizes or has activity similar to this again, restart Diprovan 5. Will feed now that off pressors, Nutrition is aware 6. Monitor urine output and renal function, currently remains normal. UDS was done after patient had already been administered sedation so positive for benzo' s. Did have amphetamines in urine as well. Not sure if this is a result of hospital administered medication or not Overall prognosis is very guarded to poor given prolonged amount of downtime. Spoke with family in PACU waiting room on yesterday. Subjective Date of service: 03/30/17 Interval history: Remains unresponsive. Currently all sedation is off. No jerkin activity, or seizure activity noted yet this am. Family present. Has not had echo done yet. Had low grade temps last night. NG tube, left to suction but not with large output. Objective Vital Signs - 12hr 03/30/17 03/30/17 03/30/17 00:01 00:15 00:31 Temperature Pulse Rate 112 H 110 H 112 H Respiratory 31 H 32 H 30 H Rate Blood Pressure 116/65 102/66 117/64 O2 Sat by Pulse 96 97 97 Oximetry 03/30/17 03/30/17 03/30/17 00:45 01:00 01:15 Temperature Pulse Rate 110 H 112 H 110 H Respiratory 21 37 H 21 Rate Blood Pressure 103/68 116/64 110/71 O2 Sat by Pulse 96 98 96 Oximetry 03/30/17 03/30/17 03/30/17 01:30 01:45 02:00 Temperature Pulse Rate 108 H 109 H 107 H Respiratory 29 H 29 H 26 H Rate Blood Pressure 114/66 108/69 119/76 O2 Sat by Pulse 96 95 94 Oximetry 03/30/17 03/30/17 03/30/17 02:15 02:31 02:45 Temperature Pulse Rate 106 H 113 H 106 H Respiratory 29 H 34 H 22 Rate Blood Pressure 107/62 98/64 105/68 O2 Sat by Pulse 95 94 Oximetry 03/30/17 03/30/17 03/30/17 03:00 03:15 03:30 Temperature Pulse Rate 106 H 107 H 107 H Respiratory 23 25 H 30 H Rate Blood Pressure 106/66 107/66 108/71 O2 Sat by Pulse 95 96 96 Oximetry 03/30/17 03/30/17 03/30/17 03:34 03:45 04:00 Temperature 99.2 F Pulse Rate 107 H 107 H 108 H Respiratory 22 21 Rate Blood Pressure 108/71 111/68 107/68 O2 Sat by Pulse 98 96 Oximetry 03/30/17 03/30/17 03/30/17 04:15 04:31 04:45 Temperature Pulse Rate 108 H 108 H 107 H Respiratory 25 H 29 H 22 Rate Blood Pressure 111/66 108/65 110/66 O2 Sat by Pulse 96 96 95 Oximetry 03/30/17 03/30/17 03/30/17 05:01 05:15 05:30 Temperature Pulse Rate 112 H 105 H 104 H Respiratory 16 25 H 29 H Rate Blood Pressure 114/64 106/61 107/63 O2 Sat by Pulse 96 97 95 Oximetry 03/30/17 03/30/17 03/30/17 05:45 06:00 06:15 Temperature Pulse Rate 104 H 107 H 107 H Respiratory 32 H 29 H 32 H Rate Blood Pressure 107/62 110/63 102/60 O2 Sat by Pulse 94 94 94 Oximetry 03/30/17 03/30/17 03/30/17 06:30 06:45 07:00 Temperature Pulse Rate 106 H 108 H 109 H Respiratory 25 H 24 20 Rate Blood Pressure 107/61 106/59 117/69 O2 Sat by Pulse 93 94 94 Oximetry 03/30/17 03/30/17 03/30/17 07:15 07:31 07:45 Temperature Pulse Rate 112 H 109 H 109 H Respiratory 35 H 23 21 Rate Blood Pressure 120/68 120/68 120/68 O2 Sat by Pulse 95 95 95 Oximetry 03/30/17 03/30/17 03/30/17 08:00 08:15 08:31 Temperature 99.2 F Pulse Rate 108 H 109 H 109 H Respiratory 22 22 20 Rate Blood Pressure 106/58 106/58 106/58 O2 Sat by Pulse 92 94 95 Oximetry 03/30/17 03/30/17 03/30/17 08:45 09:00 09:15 Temperature Pulse Rate 110 H 113 H 114 H Respiratory 19 30 H 25 H Rate Blood Pressure 106/58 116/77 116/77 O2 Sat by Pulse 95 96 95 Oximetry 03/30/17 03/30/17 03/30/17 09:31 09:45 09:55 Temperature Pulse Rate 113 H 115 H 118 H Respiratory 28 H 18 Rate Blood Pressure 116/77 116/77 116/77 O2 Sat by Pulse 96 96 94 Oximetry 03/30/17 03/30/17 03/30/17 10:00 10:15 10:26 Temperature Pulse Rate 118 H 119 H 120 H Respiratory 20 21 Rate Blood Pressure 127/79 127/79 112/65 O2 Sat by Pulse 94 93 Oximetry 03/30/17 10:31 Temperature Pulse Rate 118 H Respiratory 26 H Rate Blood Pressure 127/79 O2 Sat by Pulse 93 Oximetry Constitutional: comatose Eyes: injected ENT: other (orally intubated, not currently on sedation) Neck: supple, other (large in circumference) Effort: normal Ascultation: Bilateral: diminished breath sounds (but clear) Percussion: Bilateral: not dull Cardiovascular: other (tachycardia) Gastrointestinal: hypoactive bowel sounds, other (mild distention) Integumentary: other (multiple tattoos) Extremities: no cyanosis Neurologic: unable to assess CBC and BMP: 03/30/17 03:50 03/30/17 03:50 ABG, PT/INR, D-dimer: ABG POC ABG pH 7.434 (7.35-7.45) 03/30/17 06:19 POC ABG pCO2 28.2 (35-45) L 03/30/17 06:19 POC ABG pO2 108 (80-105) H 03/30/17 06:19 POC ABG HCO3 18.9 03/30/17 06:19 POC ABG Total CO2 20 03/30/17 06:19 POC ABG O2 Sat 98 03/30/17 06:19 PT/INR, D-dimer PT 15.8 Sec. (12.2-14.9) H 03/29/17 11:35 INR 1.20 (0.87-1.13) H 03/29/17 11:35 Abnormal lab findings: Abnormal Labs 03/29/17 03/29/17 03/29/17 11:35 11:35 11:40 WBC MCV 98 H MCH 33 H Lymphocytes % (Manual) Monocytes % (Manual) 9.0 H Nucleated RBC % 1.0 H Seg Neutrophils # Man Monocytes # (Manual) 0.9 H PT 15.8 H INR 1.20 H Activated Clotting Time POC ABG pH POC ABG pCO2 POC ABG pO2 Potassium 2.7 L* Chloride 95.3 L Carbon Dioxide 17 L BUN Glucose 435 H Calcium Total Creatine Kinase CK-MB (CK-2) CK-MB (CK-2) Rel Index Troponin T Total Protein 6.1 L Albumin 3.5 L Triglycerides 03/29/17 03/29/17 03/29/17 14:50 15:18 19:52 WBC MCV MCH Lymphocytes % (Manual) Monocytes % (Manual) Nucleated RBC % Seg Neutrophils # Man Monocytes # (Manual) PT INR Activated Clotting Time 175 H POC ABG pH 7.293 L POC ABG pCO2 POC ABG pO2 602 H Potassium Chloride Carbon Dioxide BUN Glucose Calcium Total Creatine Kinase 7263 H CK-MB (CK-2) > 300.0 H CK-MB (CK-2) Rel Index 4.1 H Troponin T 8.080 H* D Total Protein Albumin Triglycerides 195 H 03/30/17 03/30/17 03/30/17 03:50 03:50 06:19 WBC 19.5 H MCV MCH Lymphocytes % (Manual) 7.0 L Monocytes % (Manual) Nucleated RBC % Seg Neutrophils # Man 12.7 H Monocytes # (Manual) 1.4 H PT INR Activated Clotting Time POC ABG pH POC ABG pCO2 28.2 L POC ABG pO2 108 H Potassium Chloride 108.9 H Carbon Dioxide 15 L BUN 25 H Glucose 158 H Calcium 8.1 L Total Creatine Kinase 7963 H CK-MB (CK-2) > 300.0 H CK-MB (CK-2) Rel Index Troponin T 6.850 H* Total Protein Albumin Triglycerides Chest x-ray: image reviewed (patchy right lower lobe airspace disease, could be consistent with aspiration given events from yesterday)
[2017-03-30] MEDS: ZESTRIL PO SCH (12:34)
[2017-03-30] MEDS: ASPIRIN PR SCH (12:34)
--- NOTE | 2017-03-30 14:11 | Consultation ---
History of Present Illness - Reason for Consult Consult date: 03/30/17 sepsis Requesting physician: SVETA GARAY - History of Present Illness 46 years old male with abnormal medical history, admitted on 03/29/17 due to a weak history of midsternal chest pain, patient is currently intubated unable to provide a history. He works in [employer], per his coworker he was complaining of chest pain for several days impiding him to work for long hours, he did not seek medical attention, pain became severe enough that patient requested 911 to be called. After patient requested 911 and he then became unresponsive. Denies any recent history of symptoms, urinary symptoms, sick contacts. Per, coworker he became cyanotic and stopped breathing on the scene. EMS found him on [place] cardiac arrest, he received epi x3, bicarb, D50, narcan and was debribilated. Of note, pt was on chcf for 3 weeks 3 months ago. In the emergency room, initial temperature was 100.4, heart rate 113, respiration 28, O2 sat 93, blood pressure 119/79. Initial white count 10.5. Hemoglobin 14.3. Bands 17%. Potassium 2.7. Creatinine 1. Troponin was found at 8. BX was positive for benzos and amphetamines. Chest x-ray was negative. Repeat chest x-ray showed patchy right basilar infiltrate. She was taken emergently to cardiac cath on 03/29/17 and was found to have 100% occlusion of the LAD. Microbiology: none Current Antimicrobials: Zosyn Vancomycin Previous Antimicrobials: Past History Past Medical History: No medical history (Reviewed) Past Surgical History: No surgical history, Other (reviewed.) Social history: single. denies: smoking, alcohol abuse, prescription drug abuse Family history: no significant family history Medications and Allergies Allergies Allergy/AdvReac Type Severity Reaction Status Date / Time No Known Allergies Allergy Unverified 03/29/17 11:35 Home Medications Medication Instructions Recorded Confirmed Last Taken Type No Known Home Medications [No 03/30/17 03/30/17 Unknown History Reported Home Medications] Active Meds: Active Medications Albuterol (Proventil) 2.5 mg IH Q3HRT PRN PRN Reason: Shortness Of Breath Lipase/Protease/Amylase (Pancreaze Dr 10,500 Unit) 1 each FEEDTUBE PRN PRN PRN Reason: For Clogged Feeding Tube Aspirin (Aspirin) 300 mg [place] QDAY [facility] Last Admin: 03/30/17 12:34 Dose: 300 mg Atorvastatin Calcium (Lipitor) 20 mg PO QHS [facility] Last Admin: 03/29/17 22:22 Dose: Not Given Clopidogrel Bisulfate (Plavix) 75 mg PO QDAY [facility] Last Admin: 03/30/17 10:00 Dose: 75 mg Dextrose (D50w (25gm) Syringe) 50 ml IV PRN PRN PRN Reason: Hypoglycemia Heparin Sodium (Porcine) (Heparin) 5,000 unit SUB-Q Q12HR [facility] Hydrophilic Ointment (Vaseline Lip Therapy) 1 applic TP Q2HR PRN PRN Reason: Dry Lips Fentanyl Citrate (Fentanyl Drip Premix) 2,000 mcg in 100 mls @ 4.309 mls/hr IV TITR [facility]; 1 MCG/KG/HR PRN Reason: Protocol Midazolam HCl 100 mg/ Sodium (Chloride) 100 mls @ 2 mls/hr IV TITR [facility]; 2 MG/HR PRN Reason: Protocol Propofol (Diprivan 10 Mg/Ml) 1,000 mg in 100 mls @ 2.585 mls/hr IV TITR [facility]; 5 MCG/KG/MIN PRN Reason: Protocol Last Titration: 03/30/17 09:00 Dose: 0 mcg/kg/min, 0 mls/hr Norepinephrine (Levophed Drip 4 Mg/Ns 250 Ml) 4 mg in 250 mls @ 7.5 mls/hr IV TITR [facility]; 2 MCG/MIN PRN Reason: Protocol Last Titration: 03/30/17 09:00 Dose: 10 mcg/min, 37.5 mls/hr Piperacillin Sod/Tazobactam Sod (Zosyn/Ns 4.5gm/100ml) 4.5 gm in 100 mls @ 200 mls/hr IV Q8HR [facility] PRN Reason: Protocol Vancomycin HCl 1,750 mg/ (Sodium Chloride) 517.5 mls @ 333.333 mls/hr IV ONCE ONE Stop: 03/30/17 17:33 Vancomycin HCl 1,250 mg/ (Sodium Chloride) 262.5 mls @ 166.667 mls/hr IV Q12H [facility] Lisinopril (Zestril) 5 mg PO QDAY [facility] Last Admin: 03/30/17 12:34 Dose: 5 mg Metoprolol Tartrate (Lopressor) 50 mg PO BID [facility] Last Admin: 03/30/17 10:26 Dose: 50 mg Multi-Ingred Cream/Lotion/Oil/Oint (Artificial Tears Ophth Oint) 1 applic OU Q4HR PRN PRN Reason: Dry Eye(s) Nitroglycerin (Nitro-Bid 2%) 1 inch TP QIDNTG [facility] PRN Reason: Protocol Last Admin: 03/30/17 10:00 Dose: 1 inch Pantoprazole Sodium (Protonix) 40 mg PO QDAY [facility] Last Admin: 03/30/17 10:00 Dose: 40 mg Simple Syrup (Simple Syrup) 15 ml FEEDTUBE PRN PRN PRN Reason: Hypoglycemia Simple Syrup (Simple Syrup) 30 ml FEEDTUBE PRN PRN PRN Reason: Hypoglycemia Sodium Bicarbonate (Sodium Bicarbonate) 325 mg FEEDTUBE PRN PRN PRN Reason: For Clogged Feeding Tube Vancomycin HCl (Vancomycin Pharmacy To Dose) 1 each IV PKCONSULT [facility] PRN Reason: Protocol Physical Examination - Physical Exam Narrative exam: General appearance: sedated intubated Eyes: anicteric sclerae, moist conjunctivae; no lid-lag; PERRLA HENT: Atraumatic; oropharynx +ETT +NGT Neck: Trachea midline; supple, no thyromegaly or lymphadenopathy Lungs: CTA, with normal respiratory effort and no intercostal retractions CV: RRR, no murmurs Abdomen: Soft, non-tender; no masses or hepatosplenomegaly Extremities: No peripheral edema or extremity lymphadenopathy Skin: Normal temperature, turgor and texture; no rash, ulcers or subcutaneous nodules Psych: sedated. Neuro: sedated Lines: No CVL / PICC - Constitutional Vitals: Vital Signs Temp Pulse Resp BP Pulse Ox 99.2 F 104 H 31 H 113/69 96 03/30/17 08:00 03/30/17 12:45 03/30/17 13:00 03/30/17 13:00 03/30/17 13:00 Temperature -Last 24 Hours Temperature 99.2 F Temperature 99.2 F Temperature 100 F Temperature 100.1 F Temperature 100.1 F Temperature 100.4 F Temperature 97.9 F Results - Labs CBC & Chem 7: 03/30/17 03:50 03/30/17 03:50 Labs: Abnormal lab results 03/29/17 03/29/17 03/29/17 Range/Units 14:50 15:18 19:52 WBC (4.5-11.0) K/mm3 Lymphocytes % (Manual) (13.4-35.0) % Seg Neutrophils # Man (1.8-7.7) K/mm3 Monocytes # (Manual) (0.0-0.8) K/mm3 Activated Clotting Time 175 H (74-137) POC ABG pH 7.293 L (7.35-7.45) POC ABG pCO2 (35-45) POC ABG pO2 602 H (80-105) Chloride (98-107) mmol/L Carbon Dioxide (22-30) mmol/L BUN (9-20) mg/dL Glucose (75-100) mg/dL Calcium (8.4-10.2) mg/dL Total Creatine Kinase 7263 H (55-170) units/L CK-MB (CK-2) > 300.0 H (0.0-4.0) ng/mL CK-MB (CK-2) Rel Index 4.1 H (0-4) Troponin T 8.080 H* D (0.00-0.029) ng/mL Triglycerides 195 H (2-149) mg/dL Ur Specific [place] (1.003-1.030) 03/30/17 03/30/17 03/30/17 Range/Units 03:50 03:50 06:19 WBC 19.5 H (4.5-11.0) K/mm3 Lymphocytes % (Manual) 7.0 L (13.4-35.0) % Seg Neutrophils # Man 12.7 H (1.8-7.7) K/mm3 Monocytes # (Manual) 1.4 H (0.0-0.8) K/mm3 Activated Clotting Time (74-137) POC ABG pH (7.35-7.45) POC ABG pCO2 28.2 L (35-45) POC ABG pO2 108 H (80-105) Chloride 108.9 H (98-107) mmol/L Carbon Dioxide 15 L (22-30) mmol/L BUN 25 H (9-20) mg/dL Glucose 158 H (75-100) mg/dL Calcium 8.1 L (8.4-10.2) mg/dL Total Creatine Kinase 7963 H (55-170) units/L CK-MB (CK-2) > 300.0 H (0.0-4.0) ng/mL CK-MB (CK-2) Rel Index (0-4) Troponin T 6.850 H* (0.00-0.029) ng/mL Triglycerides (2-149) mg/dL Ur Specific [place] (1.003-1.030) 03/30/17 Range/Units 09:45 WBC (4.5-11.0) K/mm3 Lymphocytes % (Manual) (13.4-35.0) % Seg Neutrophils # Man (1.8-7.7) K/mm3 Monocytes # (Manual) (0.0-0.8) K/mm3 Activated Clotting Time (74-137) POC ABG pH (7.35-7.45) POC ABG pCO2 (35-45) POC ABG pO2 (80-105) Chloride (98-107) mmol/L Carbon Dioxide (22-30) mmol/L BUN (9-20) mg/dL Glucose (75-100) mg/dL Calcium (8.4-10.2) mg/dL Total Creatine Kinase (55-170) units/L CK-MB (CK-2) (0.0-4.0) ng/mL CK-MB (CK-2) Rel Index (0-4) Troponin T (0.00-0.029) ng/mL Triglycerides (2-149) mg/dL Ur Specific [place] 1.031 H (1.003-1.030) Assessment and Plan Assessment: 1) S/P VT cardiac arrest due to STEMI: 100% LAD occlusion s/p angioplasty and stent 2) SIRS: Present on admission, manifested by fever, tachycardia, bandemia. Etiology unclear ? Post [place] fever ? aspiration pneumonia ? central. 3) Encephalopathy: ? anoxic injury 4) Presumed aspiration pneumonia 5) Amph abuse ? Plan: -obtain blood cultures -obtain respiratory cultures, C-reactive protein (CRP) -continue zosyn for now -stop vancomycin -EEG/neuro eval Thank you Dr Garay for your consultation, will follow up with you. Alla Arana MD Infectious Diseases Specialist [facility] ([facility] M [phone] O [phone]
[2017-03-30] MEDS: ZOSYN/NS 4.5GM/100ML 4.5 GM/100 ML VIAL IV SCH ×3 (15:41→21:29)
[2017-03-30] MEDS ORDERED: VANCOMYCIN 1,750 MG in NACL 0.9% 500 ML 500 ML IV ONE (16:00)
[2017-03-30] MEDS: ARTIFICIAL TEARS OPHTH OINT OU PRN (17:29)
[2017-03-30] MEDS: HEPARIN SUB-Q SCH (21:30)
[2017-03-31] MEDS: VANCOMYCIN 1,250 MG in NACL 0.9% 250ML 250 ML IV SCH ×2 (03:35→17:01)
[2017-03-31] MEDS: NITRO-BID 2% TP SCH ×4 (05:13→17:01)
[2017-03-31] MEDS: ZOSYN/NS 4.5GM/100ML 4.5 GM/100 ML VIAL IV SCH ×3 (05:13→22:43)
[2017-03-31 06:08] LABS: Hematocrit 38.2 % (35.5-45.6); Hemoglobin 13.2 gm/dl (11.8-15.2)
--- NOTE | 2017-03-31 06:28 | XRay Report ---
FINAL REPORT PROCEDURE: XR CHEST 1V AP TECHNIQUE: Chest radiograph anteroposterior view. CPT 23274 HISTORY: follow up respiratory failure COMPARISON: 03/30/2017 FINDINGS: Heart: Normal. Mediastinum/Vessels: Normal. Lungs/Pleural space: Patchy infiltrate right lung. No effusion or pneumothorax. Bony thorax: No acute osseous abnormality. Life support devices: The endotracheal tube ends 4 centimeters above the khurram. A nasogastric tube ends below the hemidiaphragms. IMPRESSION: Patchy infiltrates right lung. Endotracheal tube and nasogastric tube are properly positioned..
--- NOTE | 2017-03-31 08:33 | Consultation ---
History of Present Illness Consult date: 03/31/17 History of present illness: full note is dictated on patient severe anoxic encephalopathy very minimal reflexes are present seizure control good at this time... plan check CT at point patient is hemodynamic stable...... have ordered EEG Past History Past Medical History: No medical history (Reviewed) Past Surgical History: No surgical history, Other (reviewed.) Social history: single. denies: smoking, alcohol abuse, prescription drug abuse Family history: no significant family history Medications and Allergies Allergies Allergy/AdvReac Type Severity Reaction Status Date / Time No Known Allergies Allergy Unverified 03/29/17 11:35 Home Medications Medication Instructions Recorded Confirmed Last Taken Type No Known Home Medications [No 03/30/17 03/30/17 Unknown History Reported Home Medications] Active Meds: Active Medications Albuterol (Proventil) 2.5 mg IH Q3HRT PRN PRN Reason: Shortness Of Breath Lipase/Protease/Amylase (Pancreaze Dr 10,500 Unit) 1 each FEEDTUBE PRN PRN PRN Reason: For Clogged Feeding Tube Aspirin (Aspirin) 300 mg [place] QDAY [facility] Last Admin: 03/30/17 12:34 Dose: 300 mg Atorvastatin Calcium (Lipitor) 20 mg PO QHS [facility] Last Admin: 03/30/17 21:30 Dose: 20 mg Clopidogrel Bisulfate (Plavix) 75 mg PO QDAY [facility] Last Admin: 03/30/17 10:00 Dose: 75 mg Dextrose (D50w (25gm) Syringe) 50 ml IV PRN PRN PRN Reason: Hypoglycemia Heparin Sodium (Porcine) (Heparin) 5,000 unit SUB-Q Q12HR [facility] Last Admin: 03/30/17 21:30 Dose: 5,000 unit Hydrophilic Ointment (Vaseline Lip Therapy) 1 applic TP Q2HR PRN PRN Reason: Dry Lips Fentanyl Citrate (Fentanyl Drip Premix) 2,000 mcg in 100 mls @ 4.309 mls/hr IV TITR [facility]; 1 MCG/KG/HR PRN Reason: Protocol Midazolam HCl 100 mg/ Sodium (Chloride) 100 mls @ 2 mls/hr IV TITR [facility]; 2 MG/HR PRN Reason: Protocol Last Titration: 03/30/17 09:00 Dose: 0 mg/hr, 0 mls/hr Propofol (Diprivan 10 Mg/Ml) 1,000 mg in 100 mls @ 2.585 mls/hr IV TITR [facility]; 5 MCG/KG/MIN PRN Reason: Protocol Last Titration: 03/30/17 18:20 Dose: 0 mcg/kg/min, 0 mls/hr Norepinephrine (Levophed Drip 4 Mg/Ns 250 Ml) 4 mg in 250 mls @ 7.5 mls/hr IV TITR [facility]; 2 MCG/MIN PRN Reason: Protocol Last Titration: 03/30/17 09:00 Dose: 10 mcg/min, 37.5 mls/hr Piperacillin Sod/Tazobactam Sod (Zosyn/Ns 4.5gm/100ml) 4.5 gm in 100 mls @ 200 mls/hr IV Q8HR [facility] PRN Reason: Protocol Last Admin: 03/31/17 05:13 Dose: 200 mls/hr Vancomycin HCl 1,250 mg/ (Sodium Chloride) 262.5 mls @ 166.667 mls/hr IV Q12H [facility] Last Admin: 03/31/17 03:35 Dose: 166.667 mls/hr Lisinopril (Zestril) 5 mg PO QDAY [facility] Last Admin: 03/30/17 12:34 Dose: 5 mg Metoprolol Tartrate (Lopressor) 50 mg PO BID [facility] Last Admin: 03/30/17 21:30 Dose: 50 mg Multi-Ingred Cream/Lotion/Oil/Oint (Artificial Tears Ophth Oint) 1 applic OU Q4HR PRN PRN Reason: Dry Eye(s) Last Admin: 03/30/17 17:29 Dose: 1 applic Nitroglycerin (Nitro-Bid 2%) 1 inch TP QIDNTG [facility] PRN Reason: Protocol Last Admin: 03/31/17 05:13 Dose: 1 inch Pantoprazole Sodium (Protonix) 40 mg PO QDAY [facility] Last Admin: 03/30/17 10:00 Dose: 40 mg Simple Syrup (Simple Syrup) 15 ml FEEDTUBE PRN PRN PRN Reason: Hypoglycemia Simple Syrup (Simple Syrup) 30 ml FEEDTUBE PRN PRN PRN Reason: Hypoglycemia Sodium Bicarbonate (Sodium Bicarbonate) 325 mg FEEDTUBE PRN PRN PRN Reason: For Clogged Feeding Tube Vancomycin HCl (Vancomycin Pharmacy To Dose) 1 each IV PKCONSULT [facility] PRN Reason: Protocol Physical Examination - Vital Signs Vital Signs: Vital Signs Pulse Resp Pulse Ox 113 H 28 H 93 03/29/17 11:33 03/29/17 11:33 03/29/17 11:33 Results - Laboratory Findings CBC and BMP: 03/31/17 05:30 03/30/17 03:50 Abnormal Lab Findings: Abnormal Labs 03/29/17 03/29/17 03/29/17 11:35 11:35 11:40 WBC MCV 98 H MCH 33 H Lymphocytes % (Manual) Monocytes % (Manual) 9.0 H Nucleated RBC % 1.0 H Seg Neutrophils # Man Monocytes # (Manual) 0.9 H PT 15.8 H INR 1.20 H Activated Clotting Time POC ABG pH POC ABG pCO2 POC ABG pO2 Potassium 2.7 L* Chloride 95.3 L Carbon Dioxide 17 L BUN Glucose 435 H POC Glucose Calcium Total Creatine Kinase CK-MB (CK-2) CK-MB (CK-2) Rel Index Troponin T C-Reactive Protein Total Protein 6.1 L Albumin 3.5 L Triglycerides Ur Specific [place] 03/29/17 03/29/17 03/29/17 12:34 13:10 13:25 WBC MCV MCH Lymphocytes % (Manual) Monocytes % (Manual) Nucleated RBC % Seg Neutrophils # Man Monocytes # (Manual) PT INR Activated Clotting Time 142 H 169 H 175 H POC ABG pH POC ABG pCO2 POC ABG pO2 Potassium Chloride Carbon Dioxide BUN Glucose POC Glucose Calcium Total Creatine Kinase CK-MB (CK-2) CK-MB (CK-2) Rel Index Troponin T C-Reactive Protein Total Protein Albumin Triglycerides Ur Specific [place] 03/29/17 03/29/17 03/29/17 14:50 15:18 19:52 WBC MCV MCH Lymphocytes % (Manual) Monocytes % (Manual) Nucleated RBC % Seg Neutrophils # Man Monocytes # (Manual) PT INR Activated Clotting Time 175 H POC ABG pH 7.293 L POC ABG pCO2 POC ABG pO2 602 H Potassium Chloride Carbon Dioxide BUN Glucose POC Glucose Calcium Total Creatine Kinase 7263 H CK-MB (CK-2) > 300.0 H CK-MB (CK-2) Rel Index 4.1 H Troponin T 8.080 H* D C-Reactive Protein Total Protein Albumin Triglycerides 195 H Ur Specific [place] 03/30/17 03/30/17 03/30/17 03:50 03:50 06:19 WBC 19.5 H MCV MCH Lymphocytes % (Manual) 7.0 L Monocytes % (Manual) Nucleated RBC % Seg Neutrophils # Man 12.7 H Monocytes # (Manual) 1.4 H PT INR Activated Clotting Time POC ABG pH POC ABG pCO2 28.2 L POC ABG pO2 108 H Potassium Chloride 108.9 H Carbon Dioxide 15 L BUN 25 H Glucose 158 H POC Glucose Calcium 8.1 L Total Creatine Kinase 7963 H CK-MB (CK-2) > 300.0 H CK-MB (CK-2) Rel Index Troponin T 6.850 H* C-Reactive Protein Total Protein Albumin Triglycerides Ur Specific [place] 03/30/17 03/30/17 03/31/17 09:45 16:04 02:19 WBC MCV MCH Lymphocytes % (Manual) Monocytes % (Manual) Nucleated RBC % Seg Neutrophils # Man Monocytes # (Manual) PT INR Activated Clotting Time POC ABG pH POC ABG pCO2 POC ABG pO2 Potassium Chloride Carbon Dioxide BUN Glucose POC Glucose 137 H Calcium Total Creatine Kinase CK-MB (CK-2) CK-MB (CK-2) Rel Index Troponin T C-Reactive Protein 21.80 H Total Protein Albumin Triglycerides Ur Specific [place] 1.031 H 03/31/17 03:57 WBC MCV MCH Lymphocytes % (Manual) Monocytes % (Manual) Nucleated RBC % Seg Neutrophils # Man Monocytes # (Manual) PT INR Activated Clotting Time POC ABG pH 7.475 H POC ABG pCO2 25.4 L POC ABG pO2 62 L Potassium Chloride Carbon Dioxide BUN Glucose POC Glucose Calcium Total Creatine Kinase CK-MB (CK-2) CK-MB (CK-2) Rel Index Troponin T C-Reactive Protein Total Protein Albumin Triglycerides Ur Specific [place]
--- NOTE | 2017-03-31 08:57 | Consultation ---
HISTORY OF PRESENT ILLNESS: This is a 46-year-old male, who initially was admitted to [facility] on 03/29/2017. He had a prolonged cardiac arrest, details of which are obtained in the record. Subsequent to being admitted, we do not have any background history on the patient. He came in with low potassium of 2.7, a high glucose of 235. He had no previous EKGs. The patient was intubated, placed on a ventilator since then was found to have a problem likely ST elevation STEMI, myocardial infarction, left anterior descending artery occlusion. He is currently being admitted and he started having seizures approximately 24 hours after admission, had severe anoxic encephalopathy. The patient since admission has had a cardiac catheterization by Dr. Friedman and results of that procedure showed an occluded left anterior descending artery, which was stented successfully at the time of the operation and coronary catheterization. Since then, the patient has remained markedly obtunded, but no further seizure activity is present. DETAILED NEUROLOGICAL EXAMINATION: VITAL SIGNS: At present 134/80, his blood pressure is 116/74, respiratory rate on the ventilator is 36. NEUROLOGICAL: He does not move spontaneously, does not arouse. His eyes are open and when I checked a cough reflex for the gag using nasotracheal suction, he does open his eyes and called several times, but none of this is very purposeful. His pupils are nonreactive. He has negative doll's eyes. Negative corneals. No spontaneous movement. No arousal to verbal or visual stimulation. IMPRESSION: Profound anoxic encephalopathy with evidence of very little neurological recovery at present time. My recommendation is speak with family, get an EEG, at some point a CT scan of head will need to be done that will be ordered. We will follow the patient with you. At this point, I am not recommending any change in his seizure medicines as seizure control is adequate at this present time. JOB# [id number] DANIKA/JENNIFER
--- NOTE | 2017-03-31 09:18 | Cat Scan Report ---
CT scan of head without IV contrast: History: Obtunded, AMS. Findings: The ventricles are normal in size and midline in location. No evidence of acute each kidney, hemorrhage or mass. No extra axial fluid collection. Normal brainstem and cerebellum. Complete opacification of right maxillary sinus with partial opacification of sphenoid sinuses and left maxillary sinus with almost complete opacification of ethmoid sinuses. Impression: No acute intracranial abnormality. Extensive chronic pansinusitis with superimposed acute sinusitis.
[2017-03-31] MEDS: PLAVIX PO SCH (09:57)
[2017-03-31] MEDS: ZESTRIL PO SCH (09:57)
[2017-03-31] MEDS: HEPARIN SUB-Q SCH ×2 (09:57→22:51)
[2017-03-31] MEDS: ASPIRIN PR SCH (09:57)
[2017-03-31] MEDS: PROTONIX PO SCH (09:57)
[2017-03-31] MEDS: LOPRESSOR PO SCH ×2 (09:58→23:01)
[2017-03-31 10:10] LABS: BUN/Creatinine Ratio 37; Blood Urea Nitrogen 22 mg/dL (9-20); Calcium 8.3 mg/dL (8.4-10.2); Hemolysis Index 10
--- NOTE | 2017-03-31 11:09 | Progress Note ---
Assessment and Plan Out of hospital VF arrest Acute anterior STEMI. s/p PCI of the LAD using BM stents deployed. reduced LVEF 30-35% by echocardiogram. Respiratory failure intubated on the vent Continue medical therapy with plavix and aspirin without interruption. Afterload reducing therapy, beta blockers, nitrates and statin therapy as tolerated. Supportive cardiac management. Subjective Date of service: 03/31/17 Interval history: Patient remains intubated, unresponsive on the vent. Objective Vital Signs Temp Pulse Resp BP Pulse Ox 03/31/17 10:00 118 H 36 H 121/79 96 03/31/17 09:58 118 H 134/78 03/31/17 09:57 118 H 134/78 03/31/17 09:45 114 H 34 H 112/74 94 03/31/17 09:31 116 H 35 H 117/76 94 03/31/17 09:15 118 H 03/31/17 08:18 120 H 128/73 95 03/31/17 08:15 118 H 36 H 112/74 94 03/31/17 08:00 102.4 F H 117 H 35 H 112/74 95 03/31/17 07:45 118 H 36 H 116/70 95 03/31/17 07:31 116 H 35 H 116/70 95 03/31/17 07:15 117 H 35 H 116/70 95 03/31/17 07:00 116 H 35 H 116/70 95 03/31/17 06:45 117 H 36 H 116/74 95 03/31/17 06:31 117 H 35 H 116/74 95 03/31/17 06:15 119 H 36 H 116/74 94 03/31/17 06:00 117 H 35 H 116/74 94 03/31/17 05:45 119 H 36 H 129/81 94 03/31/17 05:31 118 H 36 H 129/81 94 03/31/17 05:15 118 H 36 H 129/81 94 03/31/17 05:13 118 H 129/81 03/31/17 05:00 125 H 30 H 129/81 94 03/31/17 04:45 118 H 37 H 118/79 93 03/31/17 04:31 117 H 36 H 118/79 93 03/31/17 04:15 117 H 37 H 118/79 92 03/31/17 04:00 117 H 38 H 118/79 93 03/31/17 03:45 121 H 39 H 121/75 94 03/31/17 03:44 119 H 121/75 94 03/31/17 03:31 116 H 37 H 121/75 94 03/31/17 03:15 116 H 36 H 121/75 94 03/31/17 03:00 114 H 37 H 121/75 94 03/31/17 02:45 113 H 35 H 117/79 94 03/31/17 02:31 112 H 35 H 117/79 98 03/31/17 02:15 113 H 34 H 117/79 94 03/31/17 02:00 111 H 33 H 117/79 93 03/31/17 01:45 114 H 34 H 115/80 92 03/31/17 01:31 118 H 25 H 115/80 93 03/31/17 01:15 123 H 37 H 115/80 97 03/31/17 01:00 115 H 35 H 115/80 96 03/31/17 00:45 115 H 35 H 118/76 96 03/31/17 00:31 113 H 34 H 118/76 96 03/31/17 00:15 111 H 35 H 118/76 96 03/31/17 00:00 110 H 34 H 113/77 96 03/30/17 23:45 110 H 33 H 118/76 96 03/30/17 23:33 109 H 118/76 96 03/30/17 23:31 108 H 33 H 118/76 96 03/30/17 23:15 107 H 33 H 118/76 96 03/30/17 23:01 106 H 34 H 118/76 97 03/30/17 22:45 107 H 36 H 126/87 96 03/30/17 22:31 108 H 36 H 126/87 96 03/30/17 22:15 106 H 35 H 126/87 96 03/30/17 22:00 117 H 36 H 126/87 96 03/30/17 21:45 134 H 39 H 119/79 97 03/30/17 21:31 122 H 37 H 119/79 95 03/30/17 21:30 120 H 130/79 03/30/17 21:15 122 H 40 H 119/79 95 03/30/17 21:01 121 H 40 H 119/79 95 03/30/17 20:45 120 H 38 H 128/88 94 03/30/17 20:31 119 H 39 H 128/88 95 03/30/17 20:15 117 H 30 H 128/88 94 03/30/17 20:00 121 H 39 H 128/88 95 03/30/17 19:45 122 H 40 H 120/81 98 03/30/17 19:44 122 H 120/81 98 03/30/17 19:31 119 H 24 120/81 95 03/30/17 19:15 119 H 20 120/81 95 03/30/17 19:00 120 H 29 H 120/81 96 03/30/17 18:45 118 H 19 116/77 95 03/30/17 18:31 118 H 42 H 116/77 96 03/30/17 18:15 117 H 17 116/77 95 03/30/17 18:01 118 H 42 H 116/77 95 03/30/17 17:45 118 H 20 124/73 93 03/30/17 17:31 119 H 24 124/73 94 03/30/17 17:28 117 H 112/67 03/30/17 17:20 118 H 116/77 95 03/30/17 17:15 118 H 26 H 124/73 94 03/30/17 17:00 116 H 40 H 124/73 95 03/30/17 16:45 115 H 18 118/68 94 03/30/17 16:31 114 H 20 118/68 95 03/30/17 16:15 112 H 14 118/68 94 03/30/17 16:00 98.6 F 111 H 28 H 118/68 94 03/30/17 15:45 111 H 25 H 94 03/30/17 15:42 111 H 109/65 03/30/17 15:31 111 H 42 H 96 03/30/17 15:15 110 H 32 H 111/77 95 03/30/17 15:00 110 H 30 H 111/77 94 03/30/17 14:45 107 H 19 114/78 94 03/30/17 14:31 109 H 38 H 114/78 96 03/30/17 14:15 105 H 31 H 114/78 95 03/30/17 14:00 104 H 34 H 114/78 95 03/30/17 13:45 105 H 30 H 113/69 95 03/30/17 13:31 105 H 17 113/69 95 03/30/17 13:15 104 H 23 113/69 95 03/30/17 13:00 31 H 113/69 96 03/30/17 12:45 107 H 17 114/78 96 03/30/17 12:34 104 H 116/73 03/30/17 12:31 103 H 17 113/71 96 03/30/17 12:15 104 H 20 113/71 96 03/30/17 12:01 100 H 19 113/71 96 03/30/17 12:00 99.3 F 03/30/17 11:45 103 H 29 H 117/73 97 03/30/17 11:31 106 H 18 117/73 97 03/30/17 11:15 110 H 23 117/73 96 - Physical Examination General: Other (unresponsive on the vent) Cardiac: Positive: Reg Rate and Rhythm - Labs and Meds CBC 03/31/17 Range/Units 05:30 Hgb 13.2 (11.8-15.2) gm/dl Hct 38.2 (35.5-45.6) % Plt Count 140 (140-440) K/mm3 Comprehensive Metabolic Panel 03/31/17 Range/Units 09:22 Sodium 144 (137-145) mmol/L Potassium 3.6 (3.6-5.0) mmol/L Chloride 106.5 (98-107) mmol/L Carbon Dioxide 19 L (22-30) mmol/L BUN 22 H (9-20) mg/dL Creatinine 0.6 L (0.8-1.5) mg/dL Glucose 148 H (75-100) mg/dL Calcium 8.3 L (8.4-10.2) mg/dL
--- NOTE | 2017-03-31 11:50 | Progress Note ---
Assessment and Plan Assessment: 1) S/P VT cardiac arrest due to STEMI: 100% LAD occlusion s/p angioplasty and stent 2) SIRS: still fever and leukocytosis. Etiology unclear ? Post MA fever ? aspiration pneumonia ? central ? pansinusitis. CRP=21 3) Encephalopathy: ? anoxic injury 4) Presumed aspiration pneumonia 5) Amph abuse ? 6) Extensive pansinusitis Plan: -obtain blood cultures -obtain respiratory cultures -continue zosyn for now -EEG/neuro eval guarded prognosis Thank you Dr Garay for your consultation, will follow up with you. Alla Arana MD Infectious Diseases Specialist [facility] ([facility]) M [phone] O [phone] Subjective Date of service: 03/31/17 Principal diagnosis: septic shock Interval history: Remains critically ill, febrile, intubated on sedative. Tmax 102.4. off pressors. Microbiology: none Current Antimicrobials: Zosyn Vancomycin Previous Antimicrobials: Objective - Exam Narrative Exam: General appearance: sedated intubated Eyes: icteric sclerae, edematous conjunctivae; no lid-lag; PERRLA HENT: Atraumatic; oropharynx +ETT +NGT Neck: Trachea midline; supple, no thyromegaly or lymphadenopathy Lungs: valeria loud rhonchi CV: RRR, no murmurs Abdomen: Soft, non-tender Extremities: +right leg IO line Skin: Normal temperature, turgor and texture; no rash, ulcers or subcutaneous nodules Psych: sedated. Neuro: sedated Lines: No CVL / PICC - Constitutional Vitals: Vital Signs Temp Pulse Resp BP Pulse Ox 102.4 F H 106 H 35 H 103/68 96 03/31/17 08:00 03/31/17 11:00 03/31/17 11:00 03/31/17 11:00 03/31/17 11:00 Temperature -Last 24 Hours Temperature 102.4 F Temperature 98.6 F Temperature 99.3 F - Labs CBC & Chem 7: 03/31/17 05:30 03/31/17 09:22 Labs: Abnormal lab results 03/29/17 03/29/17 03/29/17 Range/Units 12:34 13:10 13:25 Activated Clotting Time 142 H 169 H 175 H (74-137) POC ABG pH (7.35-7.45) POC ABG pCO2 (35-45) POC ABG pO2 (80-105) Carbon Dioxide (22-30) mmol/L BUN (9-20) mg/dL Creatinine (0.8-1.5) mg/dL Glucose (75-100) mg/dL POC Glucose (70-105) Calcium (8.4-10.2) mg/dL C-Reactive Protein (0.00-1.30) mg/dL Ur Specific [place] (1.003-1.030) 03/30/17 03/30/17 03/31/17 Range/Units 09:45 16:04 02:19 Activated Clotting Time (74-137) POC ABG pH (7.35-7.45) POC ABG pCO2 (35-45) POC ABG pO2 (80-105) Carbon Dioxide (22-30) mmol/L BUN (9-20) mg/dL Creatinine (0.8-1.5) mg/dL Glucose (75-100) mg/dL POC Glucose 137 H (70-105) Calcium (8.4-10.2) mg/dL C-Reactive Protein 21.80 H (0.00-1.30) mg/dL Ur Specific [place] 1.031 H (1.003-1.030) 03/31/17 03/31/17 Range/Units 03:57 09:22 Activated Clotting Time (74-137) POC ABG pH 7.475 H (7.35-7.45) POC ABG pCO2 25.4 L (35-45) POC ABG pO2 62 L (80-105) Carbon Dioxide 19 L (22-30) mmol/L BUN 22 H (9-20) mg/dL Creatinine 0.6 L (0.8-1.5) mg/dL Glucose 148 H (75-100) mg/dL POC Glucose (70-105) Calcium 8.3 L (8.4-10.2) mg/dL C-Reactive Protein (0.00-1.30) mg/dL Ur Specific [place] (1.003-1.030)
--- NOTE | 2017-03-31 12:23 | Progress Note ---
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 1. Cardiac meds should be administered now that more hemodynamically stable, echo shows depressed EF, 30-35%, monitor fluid balance and BP 2. Now that off sedation, needs EEG, per neuro have ordered, I ordered yesterday as well 3. Feeding patient 4. Would hold on on long acting antiepileptic therapy and if patient seizes or has activity similar to this again, restart Diprovan 5. Overall prognosis is very poor given amount of downtime. Appreciate neuro input, follow up the remainder of their work up. CCT 31 minutes. Subjective Date of service: 03/31/17 Principal diagnosis: septic shock Interval history: Remains off sedation. Still not responsive. Hemodynamics have stablized. Off pressors. Family at bedside. Objective Vital Signs - 12hr 03/31/17 03/31/17 03/31/17 00:31 00:45 01:00 Temperature Pulse Rate 113 H 115 H 115 H Respiratory 34 H 35 H 35 H Rate Blood Pressure 118/76 118/76 115/80 O2 Sat by Pulse 96 96 96 Oximetry 03/31/17 03/31/17 03/31/17 01:15 01:31 01:45 Temperature Pulse Rate 123 H 118 H 114 H Respiratory 37 H 25 H 34 H Rate Blood Pressure 115/80 115/80 115/80 O2 Sat by Pulse 97 93 92 Oximetry 03/31/17 03/31/17 03/31/17 02:00 02:15 02:31 Temperature Pulse Rate 111 H 113 H 112 H Respiratory 33 H 34 H 35 H Rate Blood Pressure 117/79 117/79 117/79 O2 Sat by Pulse 93 94 98 Oximetry 03/31/17 03/31/17 03/31/17 02:45 03:00 03:15 Temperature Pulse Rate 113 H 114 H 116 H Respiratory 35 H 37 H 36 H Rate Blood Pressure 117/79 121/75 121/75 O2 Sat by Pulse 94 94 94 Oximetry 03/31/17 03/31/17 03/31/17 03:31 03:44 03:45 Temperature Pulse Rate 116 H 119 H 121 H Respiratory 37 H 39 H Rate Blood Pressure 121/75 121/75 121/75 O2 Sat by Pulse 94 94 94 Oximetry 03/31/17 03/31/17 03/31/17 04:00 04:15 04:31 Temperature Pulse Rate 117 H 117 H 117 H Respiratory 38 H 37 H 36 H Rate Blood Pressure 118/79 118/79 118/79 O2 Sat by Pulse 93 92 93 Oximetry 03/31/17 03/31/17 03/31/17 04:45 05:00 05:13 Temperature Pulse Rate 118 H 125 H 118 H Respiratory 37 H 30 H Rate Blood Pressure 118/79 129/81 129/81 O2 Sat by Pulse 93 94 Oximetry 03/31/17 03/31/17 03/31/17 05:15 05:31 05:45 Temperature Pulse Rate 118 H 118 H 119 H Respiratory 36 H 36 H 36 H Rate Blood Pressure 129/81 129/81 129/81 O2 Sat by Pulse 94 94 94 Oximetry 03/31/17 03/31/17 03/31/17 06:00 06:15 06:31 Temperature Pulse Rate 117 H 119 H 117 H Respiratory 35 H 36 H 35 H Rate Blood Pressure 116/74 116/74 116/74 O2 Sat by Pulse 94 94 95 Oximetry 03/31/17 03/31/17 03/31/17 06:45 07:00 07:15 Temperature Pulse Rate 117 H 116 H 117 H Respiratory 36 H 35 H 35 H Rate Blood Pressure 116/74 116/70 116/70 O2 Sat by Pulse 95 95 95 Oximetry 03/31/17 03/31/17 03/31/17 07:31 07:45 08:00 Temperature 102.4 F H Pulse Rate 116 H 118 H 117 H Respiratory 35 H 36 H 35 H Rate Blood Pressure 116/70 116/70 112/74 O2 Sat by Pulse 95 95 95 Oximetry 03/31/17 03/31/17 03/31/17 08:15 08:18 09:15 Temperature Pulse Rate 118 H 120 H 118 H Respiratory 36 H Rate Blood Pressure 112/74 128/73 O2 Sat by Pulse 94 95 Oximetry 03/31/17 03/31/17 03/31/17 09:31 09:45 09:57 Temperature Pulse Rate 116 H 114 H 118 H Respiratory 35 H 34 H Rate Blood Pressure 117/76 112/74 134/78 O2 Sat by Pulse 94 94 Oximetry 03/31/17 03/31/17 03/31/17 09:58 10:00 10:15 Temperature Pulse Rate 118 H 118 H 127 H Respiratory 36 H 34 H Rate Blood Pressure 134/78 121/79 121/79 O2 Sat by Pulse 96 95 Oximetry 03/31/17 03/31/17 03/31/17 10:31 10:45 11:00 Temperature Pulse Rate 117 H 105 H 106 H Respiratory 34 H 34 H 35 H Rate Blood Pressure 121/79 121/79 103/68 O2 Sat by Pulse 96 96 96 Oximetry 03/31/17 03/31/17 12:00 12:11 Temperature 101.5 F H Pulse Rate 105 H Respiratory Rate Blood Pressure 111/65 O2 Sat by Pulse 96 Oximetry Constitutional: comatose Eyes: injected ENT: other (orally intubated, not currently on sedation) Neck: supple, other (large in circumference) Effort: normal Ascultation: Bilateral: diminished breath sounds (but clear) Percussion: Bilateral: not dull Cardiovascular: other (tachycardia) Gastrointestinal: hypoactive bowel sounds, other (mild distention) Integumentary: other (multiple tattoos) Extremities: no cyanosis Neurologic: unable to assess CBC and BMP: 03/31/17 05:30 03/31/17 09:22 ABG, PT/INR, D-dimer: ABG POC ABG pH 7.475 (7.35-7.45) H 03/31/17 03:57 POC ABG pCO2 25.4 (35-45) L 03/31/17 03:57 POC ABG pO2 62 (80-105) L 03/31/17 03:57 POC ABG HCO3 18.7 03/31/17 03:57 POC ABG Total CO2 19 03/31/17 03:57 POC ABG O2 Sat 93 03/31/17 03:57 PT/INR, D-dimer PT 15.8 Sec. (12.2-14.9) H 03/29/17 11:35 INR 1.20 (0.87-1.13) H 03/29/17 11:35 Abnormal lab findings: Abnormal Labs 03/29/17 03/29/17 03/29/17 11:35 11:35 11:40 WBC MCV 98 H MCH 33 H Lymphocytes % (Manual) Monocytes % (Manual) 9.0 H Nucleated RBC % 1.0 H Seg Neutrophils # Man Monocytes # (Manual) 0.9 H PT 15.8 H INR 1.20 H Activated Clotting Time POC ABG pH POC ABG pCO2 POC ABG pO2 Potassium 2.7 L* Chloride 95.3 L Carbon Dioxide 17 L BUN Creatinine Glucose 435 H POC Glucose Calcium Total Creatine Kinase CK-MB (CK-2) CK-MB (CK-2) Rel Index Troponin T C-Reactive Protein Total Protein 6.1 L Albumin 3.5 L Triglycerides Ur Specific [place] 03/29/17 03/29/17 03/29/17 12:34 13:10 13:25 WBC MCV MCH Lymphocytes % (Manual) Monocytes % (Manual) Nucleated RBC % Seg Neutrophils # Man Monocytes # (Manual) PT INR Activated Clotting Time 142 H 169 H 175 H POC ABG pH POC ABG pCO2 POC ABG pO2 Potassium Chloride Carbon Dioxide BUN Creatinine Glucose POC Glucose Calcium Total Creatine Kinase CK-MB (CK-2) CK-MB (CK-2) Rel Index Troponin T C-Reactive Protein Total Protein Albumin Triglycerides Ur Specific [place] 03/29/17 03/29/17 03/29/17 14:50 15:18 19:52 WBC MCV MCH Lymphocytes % (Manual) Monocytes % (Manual) Nucleated RBC % Seg Neutrophils # Man Monocytes # (Manual) PT INR Activated Clotting Time 175 H POC ABG pH 7.293 L POC ABG pCO2 POC ABG pO2 602 H Potassium Chloride Carbon Dioxide BUN Creatinine Glucose POC Glucose Calcium Total Creatine Kinase 7263 H CK-MB (CK-2) > 300.0 H CK-MB (CK-2) Rel Index 4.1 H Troponin T 8.080 H* D C-Reactive Protein Total Protein Albumin Triglycerides 195 H Ur Specific [place] 03/30/17 03/30/17 03/30/17 03:50 03:50 06:19 WBC 19.5 H MCV MCH Lymphocytes % (Manual) 7.0 L Monocytes % (Manual) Nucleated RBC % Seg Neutrophils # Man 12.7 H Monocytes # (Manual) 1.4 H PT INR Activated Clotting Time POC ABG pH POC ABG pCO2 28.2 L POC ABG pO2 108 H Potassium Chloride 108.9 H Carbon Dioxide 15 L BUN 25 H Creatinine Glucose 158 H POC Glucose Calcium 8.1 L Total Creatine Kinase 7963 H CK-MB (CK-2) > 300.0 H CK-MB (CK-2) Rel Index Troponin T 6.850 H* C-Reactive Protein Total Protein Albumin Triglycerides Ur Specific [place] 03/30/17 03/30/17 03/31/17 09:45 16:04 02:19 WBC MCV MCH Lymphocytes % (Manual) Monocytes % (Manual) Nucleated RBC % Seg Neutrophils # Man Monocytes # (Manual) PT INR Activated Clotting Time POC ABG pH POC ABG pCO2 POC ABG pO2 Potassium Chloride Carbon Dioxide BUN Creatinine Glucose POC Glucose 137 H Calcium Total Creatine Kinase CK-MB (CK-2) CK-MB (CK-2) Rel Index Troponin T C-Reactive Protein 21.80 H Total Protein Albumin Triglycerides Ur Specific [place] 1.031 H 03/31/17 03/31/17 03/31/17 03:57 09:22 11:40 WBC MCV MCH Lymphocytes % (Manual) Monocytes % (Manual) Nucleated RBC % Seg Neutrophils # Man Monocytes # (Manual) PT INR Activated Clotting Time POC ABG pH 7.475 H POC ABG pCO2 25.4 L POC ABG pO2 62 L Potassium Chloride Carbon Dioxide 19 L BUN 22 H Creatinine 0.6 L Glucose 148 H POC Glucose 127 H Calcium 8.3 L Total Creatine Kinase CK-MB (CK-2) CK-MB (CK-2) Rel Index Troponin T C-Reactive Protein Total Protein Albumin Triglycerides Ur Specific [place]
[2017-03-31] MEDS ORDERED: K-DUR PO ONE (13:04)
[2017-03-31] MEDS: KCL 10MEQ/100ML 10 MEQ/100 ML BAG IV SCH ×4 (14:46→17:53)
[2017-03-31] MEDS: CORDARONE 900 MG in D5W 482 ML IV SCH (14:50)
--- NOTE | 2017-03-31 15:44 | Progress Note ---
Assessment and Plan Assessment and plan: 46 YO Male with No PMH presents to ED for evaluation. Pt is unresponsive and unable to provide history. Pt history taken from ED staff and EMS. Pt was at work today and suddenly passed out around 1050 hrs-which was witnessed by patients coworkers. EMS notified, and upon arrival the patient was found to have V Fib. Pt treated IAW ACLS protocol. The patient was given 3 defibrillations, 2 rounds of epinephrine, Narcan, and a half amp of sodium bicarbonate. Pt found to be in respiratory distress and was intubated and placed on vent support. 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 Acute Respiratory failure requiring MV <96 hours Pt intubated, Placed on vent support, Pulmonary consulted, Wean vent as tolerated, daily SBT, Daily sedation holiday, Anterior STEMI sp cardiac arrest case dw cardiology Emergency cath protocol called upon arrival, we found 100% occlusion of the LAD in its prox-mid segment. Successful primari PCI-angioplasty and 3.0-3.5mm BM stents deployed. LAD flow restored-excellent result. Heparin drip was discontinued per cardiology, optimize meds Shock -Likely cardiogenic and possibly also septic shock Currently off pressors, has been weaned Sepsis/Right lower lobe aspiration pneumonia, most likely due to gram-positive bacteria -Started on Zosyn and Vanco, obtain sputum cultures, obtain UA and urine culture Case discussed with infectious disease Hypokalemia Now resolved Acute encephalopathy Most likely anoxic brain injury, patient has been off sedation and still obtunded and nonresponsive. He likely had aprolonged period of time without perfusion to his brain. We will continue to monitor his mental status, -His prognosis is grim with very little chance of recovery, this has been conveyed to the family. We would recommend hospice and withdrawal of life supports versus trach and SNIF placement. The family are discussing this amongst themselves. Critical care physician and neurologist also conveyed the same information to the family The high probability of a clinically significant, sudden or life threatening deterioration of the [Pulmonary, cardiac, renal] system(s) required my full and direct attention, intervention and personal management. The aggregate critical care time was [65] minutes. This time is in addition to time spent performing reported procedures but includes the following: [x] Data Review and interpretation [x] Patient assessment and monitoring of vital signs [x] Documentation [x] Medication orders and management History Interval history: Patient is nonresponsive, lacks most reflexes, had fever, no vomiting, no agitation Hospitalist Physical - Physical exam Narrative exam: General.: Comatose HEENT: Moist mucous membranes, no LAD, orbital edema noted Neck: supple Cardiac: S1-S2 heard Lungs: clear to auscultation bilaterally Abdomen: soft , nontender, nondistended, bowel sounds positive Extremities: no edema clubbing or cyanosis Skin: no rash or lesions Neurologic: Patient is in deep coma, lacks most reflexes - Constitutional Vitals: Temp Pulse Resp BP Pulse Ox 101.5 F H 112 H 35 H 107/71 97 03/31/17 12:00 03/31/17 15:31 03/31/17 15:31 03/31/17 15:31 03/31/17 15:31 General appearance: Present: severe distress Results - Labs CBC & Chem 7: 03/31/17 05:30 03/31/17 09:22 Labs: Laboratory Last Values WBC 19.5 K/mm3 (4.5-11.0) H 03/30/17 03:50 RBC 4.57 M/mm3 (3.65-5.03) 03/30/17 03:50 Hgb 13.2 gm/dl (11.8-15.2) 03/31/17 05:30 Hct 38.2 % (35.5-45.6) 03/31/17 05:30 MCV 93 fl (84-94) 03/30/17 03:50 MCH 32 pg (28-32) 03/30/17 03:50 MCHC 34 % (32-34) 03/30/17 03:50 RDW 14.0 % (13.2-15.2) 03/30/17 03:50 Plt Count 140 K/mm3 (140-440) 03/31/17 05:30 Add Manual Diff Complete 03/30/17 03:50 Total Counted 100 03/30/17 03:50 Seg Neuts % (Manual) 65.0 % (40.0-70.0) 03/30/17 03:50 Band Neutrophils % 17.0 % 03/30/17 03:50 Lymphocytes % (Manual) 7.0 % (13.4-35.0) L 03/30/17 03:50 Reactive Lymphs % (Man) 0 % 03/30/17 03:50 Monocytes % (Manual) 7.0 % (0.0-7.3) 03/30/17 03:50 Eosinophils % (Manual) 0 % (0.0-4.3) 03/30/17 03:50 Basophils % (Manual) 0 % (0.0-1.8) 03/30/17 03:50 Metamyelocytes % 4.0 % 03/30/17 03:50 Myelocytes % 0 % 03/30/17 03:50 Promyelocytes % 0 % 03/30/17 03:50 Blast Cells % 0 % 03/30/17 03:50 Nucleated RBC % Not Reportable 03/30/17 03:50 Seg Neutrophils # Man 12.7 K/mm3 (1.8-7.7) H 03/30/17 03:50 Band Neutrophils # 3.3 K/mm3 03/30/17 03:50 Lymphocytes # (Manual) 1.4 K/mm3 (1.2-5.4) 03/30/17 03:50 Abs React Lymphs (Man) 0.0 K/mm3 03/30/17 03:50 Monocytes # (Manual) 1.4 K/mm3 (0.0-0.8) H 03/30/17 03:50 Eosinophils # (Manual) 0.0 K/mm3 (0.0-0.4) 03/30/17 03:50 Basophils # (Manual) 0.0 K/mm3 (0.0-0.1) 03/30/17 03:50 Metamyelocytes # 0.8 K/mm3 03/30/17 03:50 Myelocytes # 0.0 K/mm3 03/30/17 03:50 Promyelocytes # 0.0 K/mm3 03/30/17 03:50 Blast Cells # 0.0 K/mm3 03/30/17 03:50 WBC Morphology Not Reportable 03/30/17 03:50 Hypersegmented Neuts Not Reportable 03/30/17 03:50 Hyposegmented Neuts Not Reportable 03/30/17 03:50 Hypogranular Neuts Not Reportable 03/30/17 03:50 Smudge Cells Not Reportable 03/30/17 03:50 Toxic Granulation Not Reportable 03/30/17 03:50 Toxic Vacuolation Not Reportable 03/30/17 03:50 Dohle Bodies Not Reportable 03/30/17 03:50 Pelger-Huet Anomaly Not Reportable 03/30/17 03:50 Sherry Rods Not Reportable 03/30/17 03:50 Platelet Estimate Appears normal 03/30/17 03:50 Clumped Platelets Not Reportable 03/30/17 03:50 Plt Clumps, EDTA Not Reportable 03/30/17 03:50 Large Platelets Not Reportable 03/30/17 03:50 Giant Platelets Not Reportable 03/30/17 03:50 Platelet Satelliting Not Reportable 03/30/17 03:50 Plt Morphology Comment Not Reportable 03/30/17 03:50 RBC Morphology Not Reportable 03/30/17 03:50 Dimorphic RBCs Not Reportable 03/30/17 03:50 Polychromasia Not Reportable 03/30/17 03:50 Hypochromasia Not Reportable 03/30/17 03:50 Poikilocytosis Not Reportable 03/30/17 03:50 Anisocytosis Few 03/30/17 03:50 Microcytosis Not Reportable 03/30/17 03:50 Macrocytosis Not Reportable 03/30/17 03:50 Spherocytes Not Reportable 03/30/17 03:50 Pappenheimer Bodies Not Reportable 03/30/17 03:50 Sickle Cells Not Reportable 03/30/17 03:50 Target Cells Not Reportable 03/30/17 03:50 Tear Drop Cells Not Reportable 03/30/17 03:50 Ovalocytes Not Reportable 03/30/17 03:50 Helmet Cells Not Reportable 03/30/17 03:50 Tamayo-Arnold Bodies Not Reportable 03/30/17 03:50 [place] Rings Not Reportable 03/30/17 03:50 Nusrat Cells Not Reportable 03/30/17 03:50 Bite Cells Not Reportable 03/30/17 03:50 Crenated Cell Not Reportable 03/30/17 03:50 Elliptocytes Not Reportable 03/30/17 03:50 Acanthocytes (Spur) Not Reportable 03/30/17 03:50 Rouleaux Not Reportable 03/30/17 03:50 Hemoglobin C Crystals Not Reportable 03/30/17 03:50 Schistocytes Not Reportable 03/30/17 03:50 Malaria parasites Not Reportable 03/30/17 03:50 Jermaine Bodies Not Reportable 03/30/17 03:50 Hem Pathologist Commnt No 03/30/17 03:50 PT 15.8 Sec. (12.2-14.9) H 03/29/17 11:35 INR 1.20 (0.87-1.13) H 03/29/17 11:35 APTT 34.8 Sec. (24.2-36.6) 03/29/17 11:35 Activated Clotting Time 92 (74-137) 03/29/17 17:47 POC ABG pH 7.475 (7.35-7.45) H 03/31/17 03:57 POC ABG pCO2 25.4 (35-45) L 03/31/17 03:57 POC ABG pO2 62 (80-105) L 03/31/17 03:57 POC ABG HCO3 18.7 03/31/17 03:57 POC ABG Total CO2 19 03/31/17 03:57 POC ABG O2 Sat 93 03/31/17 03:57 POC ABG Base Excess -5 03/31/17 03:57 FiO2 40 % 03/31/17 03:57 Sodium 144 mmol/L (137-145) 03/31/17 09:22 Potassium 3.6 mmol/L (3.6-5.0) 03/31/17 09:22 Chloride 106.5 mmol/L (98-107) 03/31/17 09:22 Carbon Dioxide 19 mmol/L (22-30) L 03/31/17 09:22 Anion Gap 22 mmol/L 03/31/17 09:22 BUN 22 mg/dL (9-20) H 03/31/17 09:22 Creatinine 0.6 mg/dL (0.8-1.5) L 03/31/17 09:22 Estimated GFR > 60 ml/min 03/31/17 09:22 BUN/Creatinine Ratio 37 % 03/31/17 09:22 Glucose 148 mg/dL (75-100) H 03/31/17 09:22 POC Glucose 127 (70-105) H 03/31/17 11:40 Calcium 8.3 mg/dL (8.4-10.2) L 03/31/17 09:22 Total Bilirubin 0.50 mg/dL (0.1-1.2) 03/29/17 11:35 AST 32 units/L (5-40) 03/29/17 11:35 ALT 25 units/L (7-56) 03/29/17 11:35 Alkaline Phosphatase 112 units/L (35-129) 03/29/17 11:35 Total Creatine Kinase 7963 units/L (55-170) H 03/30/17 03:50 CK-MB (CK-2) > 300.0 ng/mL (0.0-4.0) H 03/30/17 03:50 CK-MB (CK-2) Rel Index 3.7 (0-4) 03/30/17 03:50 Troponin T 6.850 ng/mL (0.00-0.029) H* 03/30/17 03:50 C-Reactive Protein 21.80 mg/dL (0.00-1.30) H 03/30/17 16:04 Total Protein 6.1 g/dL (6.3-8.2) L 03/29/17 11:35 Albumin 3.5 g/dL (3.9-5) L 03/29/17 11:35 Albumin/Globulin Ratio 1.3 % 03/29/17 11:35 Triglycerides 195 mg/dL (2-149) H 03/29/17 19:52 Cholesterol 164 mg/dL (50-199) 03/29/17 19:52 LDL Cholesterol Direct 81 mg/dL (50-130) 03/29/17 19:52 HDL Cholesterol 44 mg/dL (40-59) 03/29/17 19:52 Cholesterol/HDL Ratio 3.72 % 03/29/17 19:52 Urine Color Yellow (Yellow) 03/30/17 09:45 Urine Turbidity Turbid (Clear) 03/30/17 09:45 Urine pH 5.0 (5.0-7.0) 03/30/17 09:45 Ur Specific [place] 1.031 (1.003-1.030) H 03/30/17 09:45 Urine Protein 30 mg/dl mg/dL (Negative) 03/30/17 09:45 Urine Glucose (UA) Neg mg/dL (Negative) 03/30/17 09:45 Urine Ketones 20 mg/dL (Negative) 03/30/17 09:45 Urine Blood Mod (Negative) 03/30/17 09:45 Urine Nitrite Neg (Negative) 03/30/17 09:45 Urine Bilirubin Neg (Negative) 03/30/17 09:45 Urine Urobilinogen < 2.0 mg/dL (<2.0) 03/30/17 09:45 Ur Leukocyte Esterase Tr (Negative) 03/30/17 09:45 Urine WBC (Auto) 1.0 /HPF (0.0-6.0) 03/30/17 09:45 Urine RBC (Auto) 14.0 /HPF (0.0-6.0) 03/30/17 09:45 Amorphous Crystals 1+ 03/30/17 09:45 Urine Opiates Screen Presumptive negative 03/30/17 09:45 Urine Methadone Screen Presumptive negative 03/30/17 09:45 Ur Barbiturates Screen Presumptive negative 03/30/17 09:45 Ur Phencyclidine Scrn Presumptive negative 03/30/17 09:45 Ur Amphetamines Screen Presumptive positive 03/30/17 09:45 U Benzodiazepines Scrn Presumptive positive 03/30/17 09:45 Urine Cocaine Screen Presumptive negative 03/30/17 09:45 U Marijuana (THC) Screen Presumptive negative 03/30/17 09:45 Drugs of Abuse Note Disclamer 03/30/17 09:45 Blood Type O POSITIVE 03/29/17 11:35 Antibody Screen Negative 03/29/17 11:35
[2017-03-31] MEDS: TYLENOL PO PRN (18:42)
[2017-03-31] MEDS: VASELINE LIP THERAPY TP PRN (22:50)
[2017-03-31] MEDS: ARTIFICIAL TEARS OPHTH OINT OU PRN (22:51)
--- NOTE | 2017-04-01 03:41 | XRay Report ---
FINAL REPORT PROCEDURE: XR CHEST 1V AP TECHNIQUE: Chest radiograph anteroposterior view. CPT 80278 HISTORY: follow up respiratory failure COMPARISON: 03/31/2017 FINDINGS: Heart: Normal. Mediastinum/Vessels: Normal. Lungs/Pleural space: Mild infiltrates bilateral lower lungs. No effusion or pneumothorax. Bony thorax: No acute osseous abnormality. Life support devices: The endotracheal tube ends 4 centimeters above the khurram. A nasogastric tube ends below the hemidiaphragms. IMPRESSION: Mild infiltrates bilateral lower lungs. The endotracheal tube and nasogastric tube are properly positioned..
[2017-04-01] MEDS: VANCOMYCIN 1,250 MG in NACL 0.9% 250ML 250 ML IV SCH (04:33)
[2017-04-01] MEDS: TYLENOL PO PRN ×3 (05:20→21:44)
[2017-04-01] MEDS: NITRO-BID 2% TP SCH ×4 (05:21→19:38)
[2017-04-01] MEDS: ZOSYN/NS 4.5GM/100ML 4.5 GM/100 ML VIAL IV SCH ×3 (06:00→21:44)
[2017-04-01] MEDS: CORDARONE 900 MG in D5W 482 ML IV SCH (06:00)
--- NOTE | 2017-04-01 07:50 | Progress Note ---
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 1. Cardiac meds should be administered now that more hemodynamically stable, echo shows depressed EF, 30-35%, monitor fluid balance and BP. Will discontinue arterial line 2. Now that off sedation, needs EEG, per neuro have ordered, I ordered 2 days ago. Still not done. Will order again stat 3. Feeding patient 4. Would hold on on long acting antiepileptic therapy and if patient seizes or has activity similar to this again, restart Diprovan 5. Overall prognosis is very poor given amount of downtime. Appreciate neuro input, follow up the remainder of their work up. Likely will not regain consciousness CCT 31 minutes. Subjective Date of service: 04/01/17 Principal diagnosis: septic shock Interval history: No acute events. continues to spike temperatures. IO line removed on yesterday. Patient is tachypnic. Hyperventilating could be secondary to fever. Remains unresponsive and has been off sedation for 48 hours now. No family currently at bedside. Objective Vital Signs - 12hr 03/31/17 03/31/17 03/31/17 20:00 20:07 20:15 Temperature 100.4 F H Pulse Rate 113 H 113 H 114 H Pulse Rate [ 118 H From Monitor] Respiratory 38 H 37 H Rate Blood Pressure 102/67 113/63 102/67 O2 Sat by Pulse 98 95 94 Oximetry 03/31/17 03/31/17 03/31/17 20:31 20:45 21:00 Temperature Pulse Rate 114 H 115 H 112 H Pulse Rate [ From Monitor] Respiratory 35 H 36 H 36 H Rate Blood Pressure 102/67 102/67 103/71 O2 Sat by Pulse 95 93 93 Oximetry 03/31/17 03/31/17 03/31/17 21:15 21:31 21:45 Temperature Pulse Rate 112 H 111 H 114 H Pulse Rate [ From Monitor] Respiratory 36 H 37 H 37 H Rate Blood Pressure 102/67 102/67 102/67 O2 Sat by Pulse 94 94 94 Oximetry 03/31/17 03/31/17 03/31/17 22:00 22:15 22:31 Temperature Pulse Rate 118 H 111 H 112 H Pulse Rate [ From Monitor] Respiratory 37 H 35 H 37 H Rate Blood Pressure 106/66 106/66 106/66 O2 Sat by Pulse 94 95 95 Oximetry 03/31/17 03/31/17 03/31/17 22:45 23:00 23:01 Temperature Pulse Rate 113 H 115 H 113 H Pulse Rate [ From Monitor] Respiratory 37 H 36 H Rate Blood Pressure 106/66 110/68 133/78 O2 Sat by Pulse 95 95 Oximetry 03/31/17 03/31/17 03/31/17 23:15 23:21 23:31 Temperature 97.9 F Pulse Rate 122 H 113 H Pulse Rate [ From Monitor] Respiratory 37 H 29 H Rate Blood Pressure 110/68 110/68 O2 Sat by Pulse 93 95 Oximetry 03/31/17 04/01/17 04/01/17 23:45 00:00 00:01 Temperature Pulse Rate 104 H 101 H Pulse Rate [ 130 H From Monitor] Respiratory 37 H 44 H 38 H Rate Blood Pressure 110/68 112/72 O2 Sat by Pulse 96 98 97 Oximetry 04/01/17 04/01/17 04/01/17 00:15 00:31 00:36 Temperature Pulse Rate 102 H 103 H 109 H Pulse Rate [ From Monitor] Respiratory 39 H 40 H Rate Blood Pressure 110/68 110/68 121/89 O2 Sat by Pulse 97 96 95 Oximetry 04/01/17 04/01/17 04/01/17 00:45 01:00 01:15 Temperature Pulse Rate 107 H 107 H 108 H Pulse Rate [ From Monitor] Respiratory 40 H 43 H 37 H Rate Blood Pressure 110/68 121/89 121/89 O2 Sat by Pulse 97 97 96 Oximetry 04/01/17 04/01/17 04/01/17 01:31 01:45 02:01 Temperature Pulse Rate 109 H 110 H 111 H Pulse Rate [ From Monitor] Respiratory 43 H 41 H 40 H Rate Blood Pressure 121/89 121/89 113/78 O2 Sat by Pulse 96 96 96 Oximetry 04/01/17 04/01/17 04/01/17 02:15 02:31 02:45 Temperature Pulse Rate 117 H 121 H 115 H Pulse Rate [ From Monitor] Respiratory 39 H 37 H 44 H Rate Blood Pressure 113/78 113/78 113/78 O2 Sat by Pulse 93 89 93 Oximetry 04/01/17 04/01/17 04/01/17 03:01 03:15 03:22 Temperature 103.1 F H Pulse Rate 116 H 116 H Pulse Rate [ From Monitor] Respiratory 43 H 41 H Rate Blood Pressure 113/78 113/78 O2 Sat by Pulse 97 99 Oximetry 04/01/17 04/01/17 04/01/17 03:31 03:45 04:00 Temperature Pulse Rate 116 H 116 H Pulse Rate [ 113 H From Monitor] Respiratory 42 H 32 H 41 H Rate Blood Pressure 113/78 113/78 O2 Sat by Pulse 99 98 98 Oximetry 04/01/17 04/01/17 04/01/17 04:01 04:15 04:31 Temperature Pulse Rate 117 H 117 H 119 H Pulse Rate [ From Monitor] Respiratory 41 H 39 H 42 H Rate Blood Pressure 113/78 113/78 113/78 O2 Sat by Pulse 98 99 97 Oximetry 04/01/17 04/01/17 04/01/17 04:45 04:57 05:01 Temperature Pulse Rate 122 H 119 H 118 H Pulse Rate [ From Monitor] Respiratory 32 H 42 H Rate Blood Pressure 113/78 153/87 113/78 O2 Sat by Pulse 97 96 96 Oximetry 04/01/17 04/01/17 05:15 05:21 Temperature Pulse Rate 113 H 112 H Pulse Rate [ From Monitor] Respiratory 43 H Rate Blood Pressure 113/78 161/81 O2 Sat by Pulse 97 Oximetry Constitutional: comatose Eyes: injected ENT: other (orally intubated, not currently on sedation) Neck: supple, other (large in circumference) Effort: normal Ascultation: Bilateral: diminished breath sounds (but clear) Percussion: Bilateral: not dull Cardiovascular: other (tachycardia) Gastrointestinal: hypoactive bowel sounds, other (mild distention) Integumentary: other (multiple tattoos) Extremities: no cyanosis Neurologic: unable to assess CBC and BMP: 03/31/17 05:30 03/31/17 09:22 ABG, PT/INR, D-dimer: ABG POC ABG pH 7.513 (7.35-7.45) H 04/01/17 05:01 POC ABG pCO2 22.1 (35-45) L 04/01/17 05:01 POC ABG pO2 64 (80-105) L 04/01/17 05:01 POC ABG HCO3 17.7 04/01/17 05:01 POC ABG Total CO2 18 04/01/17 05:01 POC ABG O2 Sat 95 01/06/18 05:01 PT/INR, D-dimer PT 15.8 Sec. (12.2-14.9) H 03/29/17 11:35 INR 1.20 (0.87-1.13) H 03/29/17 11:35 Abnormal lab findings: Abnormal Labs 03/29/17 03/29/17 03/29/17 11:35 11:35 11:40 WBC MCV 98 H MCH 33 H Lymphocytes % (Manual) Monocytes % (Manual) 9.0 H Nucleated RBC % 1.0 H Seg Neutrophils # Man Monocytes # (Manual) 0.9 H PT 15.8 H INR 1.20 H Activated Clotting Time POC ABG pH POC ABG pCO2 POC ABG pO2 Potassium 2.7 L* Chloride 95.3 L Carbon Dioxide 17 L BUN Creatinine Glucose 435 H POC Glucose Calcium Total Creatine Kinase CK-MB (CK-2) CK-MB (CK-2) Rel Index Troponin T C-Reactive Protein Total Protein 6.1 L Albumin 3.5 L Triglycerides Ur Specific [place] 03/29/17 03/29/17 03/29/17 12:34 13:10 13:25 WBC MCV MCH Lymphocytes % (Manual) Monocytes % (Manual) Nucleated RBC % Seg Neutrophils # Man Monocytes # (Manual) PT INR Activated Clotting Time 142 H 169 H 175 H POC ABG pH POC ABG pCO2 POC ABG pO2 Potassium Chloride Carbon Dioxide BUN Creatinine Glucose POC Glucose Calcium Total Creatine Kinase CK-MB (CK-2) CK-MB (CK-2) Rel Index Troponin T C-Reactive Protein Total Protein Albumin Triglycerides Ur Specific [place] 03/29/17 03/29/17 03/29/17 14:50 15:18 19:52 WBC MCV MCH Lymphocytes % (Manual) Monocytes % (Manual) Nucleated RBC % Seg Neutrophils # Man Monocytes # (Manual) PT INR Activated Clotting Time 175 H POC ABG pH 7.293 L POC ABG pCO2 POC ABG pO2 602 H Potassium Chloride Carbon Dioxide BUN Creatinine Glucose POC Glucose Calcium Total Creatine Kinase 7263 H CK-MB (CK-2) > 300.0 H CK-MB (CK-2) Rel Index 4.1 H Troponin T 8.080 H* D C-Reactive Protein Total Protein Albumin Triglycerides 195 H Ur Specific [place] 03/30/17 03/30/17 03/30/17 03:50 03:50 06:19 WBC 19.5 H MCV MCH Lymphocytes % (Manual) 7.0 L Monocytes % (Manual) Nucleated RBC % Seg Neutrophils # Man 12.7 H Monocytes # (Manual) 1.4 H PT INR Activated Clotting Time POC ABG pH POC ABG pCO2 28.2 L POC ABG pO2 108 H Potassium Chloride 108.9 H Carbon Dioxide 15 L BUN 25 H Creatinine Glucose 158 H POC Glucose Calcium 8.1 L Total Creatine Kinase 7963 H CK-MB (CK-2) > 300.0 H CK-MB (CK-2) Rel Index Troponin T 6.850 H* C-Reactive Protein Total Protein Albumin Triglycerides Ur Specific [place] 03/30/17 03/30/17 03/31/17 09:45 16:04 02:19 WBC MCV MCH Lymphocytes % (Manual) Monocytes % (Manual) Nucleated RBC % Seg Neutrophils # Man Monocytes # (Manual) PT INR Activated Clotting Time POC ABG pH POC ABG pCO2 POC ABG pO2 Potassium Chloride Carbon Dioxide BUN Creatinine Glucose POC Glucose 137 H Calcium Total Creatine Kinase CK-MB (CK-2) CK-MB (CK-2) Rel Index Troponin T C-Reactive Protein 21.80 H Total Protein Albumin Triglycerides Ur Specific [place] 1.031 H 03/31/17 03/31/17 03/31/17 03:57 06:54 09:22 WBC MCV MCH Lymphocytes % (Manual) Monocytes % (Manual) Nucleated RBC % Seg Neutrophils # Man Monocytes # (Manual) PT INR Activated Clotting Time POC ABG pH 7.475 H POC ABG pCO2 25.4 L POC ABG pO2 62 L Potassium Chloride Carbon Dioxide 19 L BUN 22 H Creatinine 0.6 L Glucose 148 H POC Glucose 143 H Calcium 8.3 L Total Creatine Kinase CK-MB (CK-2) CK-MB (CK-2) Rel Index Troponin T C-Reactive Protein Total Protein Albumin Triglycerides Ur Specific [place] 03/31/17 03/31/17 03/31/17 11:40 17:47 23:38 WBC MCV MCH Lymphocytes % (Manual) Monocytes % (Manual) Nucleated RBC % Seg Neutrophils # Man Monocytes # (Manual) PT INR Activated Clotting Time POC ABG pH POC ABG pCO2 POC ABG pO2 Potassium Chloride Carbon Dioxide BUN Creatinine Glucose POC Glucose 127 H 137 H 148 H Calcium Total Creatine Kinase CK-MB (CK-2) CK-MB (CK-2) Rel Index Troponin T C-Reactive Protein Total Protein Albumin Triglycerides Ur Specific [place] 04/01/17 04/01/17 04:29 05:01 WBC MCV MCH Lymphocytes % (Manual) Monocytes % (Manual) Nucleated RBC % Seg Neutrophils # Man Monocytes # (Manual) PT INR Activated Clotting Time POC ABG pH 7.513 H POC ABG pCO2 22.1 L POC ABG pO2 64 L Potassium Chloride Carbon Dioxide BUN Creatinine Glucose POC Glucose Calcium Total Creatine Kinase CK-MB (CK-2) CK-MB (CK-2) Rel Index Troponin T C-Reactive Protein Total Protein Albumin Triglycerides 151 H Ur Specific [place]
[2017-04-01] MEDS: HEPARIN SUB-Q SCH ×2 (11:00→21:46)
--- NOTE | 2017-04-01 11:08 | Progress Note ---
Assessment and Plan Assessment: 1) S/P VT cardiac arrest due to STEMI: 100% LAD occlusion s/p angioplasty and stent 2) SIRS: still fever and leukocytosis. Etiology unclear ? Post PR fever ? aspiration pneumonia ? central ? pansinusitis. CRP=21 3) Encephalopathy: likely severe anoxic injury. CT head unremarkable 4) Presumed aspiration pneumonia 5) Amph abuse ? 6) Extensive pansinusitis Plan: -f/u blood cultures -f/u respiratory cultures -continue zosyn day-3. If fever continues consider adding vancomycin over the weekend -EEG I will be off tomorrow covering over the phone. guarded prognosis Thank you Dr Garay for your consultation, will follow up with you. Alla Arana MD Infectious Diseases Specialist [facility] ([facility]) M [phone] O [phone] Subjective Date of service: 04/01/17 Principal diagnosis: septic shock Interval history: Remains critically ill, febrile, intubated on sedative. Tmax 103.1. off pressors. Microbiology: Urine culture: 03/30 neg Blood cultures: 03/31 ngtd Current Antimicrobials: Zosyn 03/30 Vancomycin 03/30 Previous Antimicrobials: Objective - Exam Narrative Exam: General appearance: sedated intubated Eyes: icteric sclerae, edematous conjunctivae; no lid-lag; PERRLA HENT: Atraumatic; oropharynx +ETT +NGT Neck: Trachea midline; supple, no thyromegaly or lymphadenopathy Lungs: CTA valeria CV: RRR, no murmurs Abdomen: Soft, non-tender Extremities: valeria edema Skin: Normal temperature, turgor and texture; no rash, ulcers or subcutaneous nodules Psych: sedated. Neuro: sedated Lines: No CVL / PICC - Constitutional Vitals: Vital Signs Temp Pulse Resp BP Pulse Ox 98.3 F 97 H 32 H 105/66 100 04/01/17 08:00 04/01/17 09:31 04/01/17 09:31 04/01/17 09:31 04/01/17 09:31 Temperature -Last 24 Hours Temperature 98.3 F Temperature 103.1 F Temperature 97.9 F Temperature 100.4 F Temperature 102.5 F Temperature 101.5 F - Labs CBC & Chem 7: 03/31/17 05:30 03/31/17 09:22 Labs: Abnormal lab results 03/31/17 03/31/17 03/31/17 Range/Units 06:54 11:40 17:47 POC ABG pH (7.35-7.45) POC ABG pCO2 (35-45) POC ABG pO2 (80-105) POC Glucose 143 H 127 H 137 H (70-105) Triglycerides (2-149) mg/dL 03/31/17 04/01/17 04/01/17 Range/Units 23:38 04:29 05:01 POC ABG pH 7.513 H (7.35-7.45) POC ABG pCO2 22.1 L (35-45) POC ABG pO2 64 L (80-105) POC Glucose 148 H (70-105) Triglycerides 151 H (2-149) mg/dL
[2017-04-01] MEDS: LOPRESSOR PO SCH ×2 (11:23→21:47)
[2017-04-01] MEDS: PLAVIX PO SCH (11:23)
[2017-04-01] MEDS: ZESTRIL PO SCH (11:23)
[2017-04-01] MEDS: ASPIRIN PR SCH (11:24)
--- NOTE | 2017-04-01 11:30 | Consultation ---
History of Present Illness Consult date: 04/01/17 History of present illness: CT reviewed by me and shows great deal of cerebral swelling/ cortical edema due to the anoxia no bleed... the EEG showed sezure activity has stopped and iunder control ... he is able to open eyes but not follow commands respirations are better will talk to family.... early to say whether more recovery will occur Past History Past Medical History: No medical history (Reviewed) Past Surgical History: No surgical history, Other (reviewed.) Social history: single. denies: smoking, alcohol abuse, prescription drug abuse Family history: no significant family history Medications and Allergies Allergies Allergy/AdvReac Type Severity Reaction Status Date / Time No Known Allergies Allergy Unverified 03/29/17 11:35 Home Medications Medication Instructions Recorded Confirmed Last Taken Type No Known Home Medications [No 03/30/17 03/30/17 Unknown History Reported Home Medications] Active Meds: Active Medications Acetaminophen (Tylenol) 1,000 mg PO Q6H PRN PRN Reason: Fever >101 Last Admin: 04/01/17 05:20 Dose: 1,000 mg Albuterol (Proventil) 2.5 mg IH Q3HRT PRN PRN Reason: Shortness Of Breath Amiodarone HCl (Cordarone) 200 mg PO BID [facility] Lipase/Protease/Amylase (Pancreaze Dr 10,500 Unit) 1 each FEEDTUBE PRN PRN PRN Reason: For Clogged Feeding Tube Aspirin (Aspirin) 300 mg NV QDAY [facility] Last Admin: 04/01/17 11:24 Dose: 300 mg Atorvastatin Calcium (Lipitor) 20 mg PO QHS [facility] Last Admin: 03/31/17 23:21 Dose: 20 mg Clopidogrel Bisulfate (Plavix) 75 mg PO QDAY [facility] Last Admin: 04/01/17 11:23 Dose: 75 mg Dextrose (D50w (25gm) Syringe) 50 ml IV PRN PRN PRN Reason: Hypoglycemia Heparin Sodium (Porcine) (Heparin) 5,000 unit SUB-Q Q12HR [facility] Last Admin: 03/31/17 22:51 Dose: 5,000 unit Hydrophilic Ointment (Vaseline Lip Therapy) 1 applic TP Q2HR PRN PRN Reason: Dry Lips Last Admin: 03/31/17 22:50 Dose: 1 applic Fentanyl Citrate (Fentanyl Drip Premix) 2,000 mcg in 100 mls @ 4.309 mls/hr IV TITR CHETAN; 1 MCG/KG/HR PRN Reason: Protocol Midazolam HCl 100 mg/ Sodium (Chloride) 100 mls @ 2 mls/hr IV TITR CHETAN; 2 MG/HR PRN Reason: Protocol Last Titration: 03/30/17 09:00 Dose: 0 mg/hr, 0 mls/hr Propofol (Diprivan 10 Mg/Ml) 1,000 mg in 100 mls @ 2.585 mls/hr IV TITR CHETAN; 5 MCG/KG/MIN PRN Reason: Protocol Last Titration: 03/30/17 18:20 Dose: 0 mcg/kg/min, 0 mls/hr Norepinephrine (Levophed Drip 4 Mg/Ns 250 Ml) 4 mg in 250 mls @ 7.5 mls/hr IV TITR CHETAN; 2 MCG/MIN PRN Reason: Protocol Last Titration: 03/30/17 09:00 Dose: 10 mcg/min, 37.5 mls/hr Piperacillin Sod/Tazobactam Sod (Zosyn/Ns 4.5gm/100ml) 4.5 gm in 100 mls @ 200 mls/hr IV Q8HR CHETAN PRN Reason: Protocol Last Admin: 04/01/17 06:00 Dose: 200 mls/hr Amiodarone HCl 900 mg/ (Dextrose) 500 mls @ 33.33 mls/hr IV DIRECT CHETAN; 1 MG /MIN PRN Reason: Protocol Last Admin: 04/01/17 06:00 Dose: 1 mg/min, 33.33 mls/hr Lisinopril (Zestril) 5 mg PO QDAY [facility] Last Admin: 04/01/17 11:23 Dose: 5 mg Metoprolol Tartrate (Lopressor) 50 mg PO BID [facility] Last Admin: 04/01/17 11:23 Dose: 50 mg Multi-Ingred Cream/Lotion/Oil/Oint (Artificial Tears Ophth Oint) 1 applic OU Q4HR PRN PRN Reason: Dry Eye(s) Last Admin: 03/31/17 22:51 Dose: 1 applic Nitroglycerin (Nitro-Bid 2%) 1 inch TP QIDNTG CHETAN PRN Reason: Protocol Last Admin: 04/01/17 11:25 Dose: 1 inch Pantoprazole (Protonix) 40 mg FEEDTUBE DAILY CHETAN Simple Syrup (Simple Syrup) 15 ml FEEDTUBE PRN PRN PRN Reason: Hypoglycemia Simple Syrup (Simple Syrup) 30 ml FEEDTUBE PRN PRN PRN Reason: Hypoglycemia Sodium Bicarbonate (Sodium Bicarbonate) 325 mg FEEDTUBE PRN PRN PRN Reason: For Clogged Feeding Tube Physical Examination - Vital Signs Vital Signs: Vital Signs Pulse Resp Pulse Ox 113 H 28 H 93 03/29/17 11:33 03/29/17 11:33 03/29/17 11:33 Results - Laboratory Findings CBC and BMP: 03/31/17 05:30 03/31/17 09:22 Abnormal Lab Findings: Abnormal Labs 03/29/17 03/29/17 03/29/17 11:35 11:35 11:40 WBC MCV 98 H MCH 33 H Lymphocytes % (Manual) Monocytes % (Manual) 9.0 H Nucleated RBC % 1.0 H Seg Neutrophils # Man Monocytes # (Manual) 0.9 H PT 15.8 H INR 1.20 H Activated Clotting Time POC ABG pH POC ABG pCO2 POC ABG pO2 Potassium 2.7 L* Chloride 95.3 L Carbon Dioxide 17 L BUN Creatinine Glucose 435 H POC Glucose Calcium Total Creatine Kinase CK-MB (CK-2) CK-MB (CK-2) Rel Index Troponin T C-Reactive Protein Total Protein 6.1 L Albumin 3.5 L Triglycerides Ur Specific [place] 03/29/17 03/29/17 03/29/17 12:34 13:10 13:25 WBC MCV MCH Lymphocytes % (Manual) Monocytes % (Manual) Nucleated RBC % Seg Neutrophils # Man Monocytes # (Manual) PT INR Activated Clotting Time 142 H 169 H 175 H POC ABG pH POC ABG pCO2 POC ABG pO2 Potassium Chloride Carbon Dioxide BUN Creatinine Glucose POC Glucose Calcium Total Creatine Kinase CK-MB (CK-2) CK-MB (CK-2) Rel Index Troponin T C-Reactive Protein Total Protein Albumin Triglycerides Ur Specific [place] 03/29/17 03/29/17 03/29/17 14:50 15:18 19:52 WBC MCV MCH Lymphocytes % (Manual) Monocytes % (Manual) Nucleated RBC % Seg Neutrophils # Man Monocytes # (Manual) PT INR Activated Clotting Time 175 H POC ABG pH 7.293 L POC ABG pCO2 POC ABG pO2 602 H Potassium Chloride Carbon Dioxide BUN Creatinine Glucose POC Glucose Calcium Total Creatine Kinase 7263 H CK-MB (CK-2) > 300.0 H CK-MB (CK-2) Rel Index 4.1 H Troponin T 8.080 H* D C-Reactive Protein Total Protein Albumin Triglycerides 195 H Ur Specific [place] 03/30/17 03/30/17 03/30/17 03:50 03:50 06:19 WBC 19.5 H MCV MCH Lymphocytes % (Manual) 7.0 L Monocytes % (Manual) Nucleated RBC % Seg Neutrophils # Man 12.7 H Monocytes # (Manual) 1.4 H PT INR Activated Clotting Time POC ABG pH POC ABG pCO2 28.2 L POC ABG pO2 108 H Potassium Chloride 108.9 H Carbon Dioxide 15 L BUN 25 H Creatinine Glucose 158 H POC Glucose Calcium 8.1 L Total Creatine Kinase 7963 H CK-MB (CK-2) > 300.0 H CK-MB (CK-2) Rel Index Troponin T 6.850 H* C-Reactive Protein Total Protein Albumin Triglycerides Ur Specific [place] 03/30/17 03/30/17 03/31/17 09:45 16:04 02:19 WBC MCV MCH Lymphocytes % (Manual) Monocytes % (Manual) Nucleated RBC % Seg Neutrophils # Man Monocytes # (Manual) PT INR Activated Clotting Time POC ABG pH POC ABG pCO2 POC ABG pO2 Potassium Chloride Carbon Dioxide BUN Creatinine Glucose POC Glucose 137 H Calcium Total Creatine Kinase CK-MB (CK-2) CK-MB (CK-2) Rel Index Troponin T C-Reactive Protein 21.80 H Total Protein Albumin Triglycerides Ur Specific [place] 1.031 H 03/31/17 03/31/17 03/31/17 03:57 06:54 09:22 WBC MCV MCH Lymphocytes % (Manual) Monocytes % (Manual) Nucleated RBC % Seg Neutrophils # Man Monocytes # (Manual) PT INR Activated Clotting Time POC ABG pH 7.475 H POC ABG pCO2 25.4 L POC ABG pO2 62 L Potassium Chloride Carbon Dioxide 19 L BUN 22 H Creatinine 0.6 L Glucose 148 H POC Glucose 143 H Calcium 8.3 L Total Creatine Kinase CK-MB (CK-2) CK-MB (CK-2) Rel Index Troponin T C-Reactive Protein Total Protein Albumin Triglycerides Ur Specific [place] 03/31/17 03/31/17 03/31/17 11:40 17:47 23:38 WBC MCV MCH Lymphocytes % (Manual) Monocytes % (Manual) Nucleated RBC % Seg Neutrophils # Man Monocytes # (Manual) PT INR Activated Clotting Time POC ABG pH POC ABG pCO2 POC ABG pO2 Potassium Chloride Carbon Dioxide BUN Creatinine Glucose POC Glucose 127 H 137 H 148 H Calcium Total Creatine Kinase CK-MB (CK-2) CK-MB (CK-2) Rel Index Troponin T C-Reactive Protein Total Protein Albumin Triglycerides Ur Specific [place] 04/01/17 04/01/17 04:29 05:01 WBC MCV MCH Lymphocytes % (Manual) Monocytes % (Manual) Nucleated RBC % Seg Neutrophils # Man Monocytes # (Manual) PT INR Activated Clotting Time POC ABG pH 7.513 H POC ABG pCO2 22.1 L POC ABG pO2 64 L Potassium Chloride Carbon Dioxide BUN Creatinine Glucose POC Glucose Calcium Total Creatine Kinase CK-MB (CK-2) CK-MB (CK-2) Rel Index Troponin T C-Reactive Protein Total Protein Albumin Triglycerides 151 H Ur Specific [place]
--- NOTE | 2017-04-01 11:57 | Progress Note ---
Assessment and Plan 1. Status post cardiac arrest. 2. Status post acute anterior ST elevation [place]. 3. Status post PCI to the left anterior descending artery with bare metal stent deployed. 4. Ischemic cardiomyopathy left ventricular ejection fraction 50-55% 5. Respiratory failure 6. Possible anoxic Encephalopathy Plan. Currently stable continue supportive cardiac management. Continue present medication. Subjective Date of service: 04/01/17 Principal diagnosis: septic shock Interval history: Patient on mechanical vent Objective Vital Signs Temp Pulse Pulse Resp BP Pulse Ox 04/01/17 11:25 100 H 133/81 04/01/17 11:23 100 H 133/81 04/01/17 09:31 97 H 32 H 105/66 100 04/01/17 09:15 98 H 33 H 105/66 99 04/01/17 09:00 99 H 32 H 105/66 99 04/01/17 08:45 99 H 33 H 116/82 99 04/01/17 08:31 99 H 33 H 116/82 99 04/01/17 08:15 100 H 33 H 109/69 99 04/01/17 08:01 100 H 32 H 109/69 99 04/01/17 08:00 98.3 F 04/01/17 07:56 100 H 130/80 99 04/01/17 07:45 100 H 33 H 116/82 04/01/17 07:31 100 H 32 H 116/82 04/01/17 07:15 103 H 33 H 116/82 04/01/17 07:01 104 H 34 H 116/82 04/01/17 06:45 105 H 34 H 113/78 04/01/17 06:31 104 H 32 H 113/78 04/01/17 06:15 105 H 38 H 113/78 04/01/17 06:01 110 H 39 H 113/78 04/01/17 05:45 111 H 39 H 113/78 97 04/01/17 05:31 115 H 35 H 113/78 97 04/01/17 05:21 112 H 161/81 04/01/17 05:15 113 H 43 H 113/78 97 04/01/17 05:01 118 H 42 H 113/78 96 04/01/17 04:57 119 H 153/87 96 04/01/17 04:45 122 H 32 H 113/78 97 04/01/17 04:31 119 H 42 H 113/78 97 04/01/17 04:15 117 H 39 H 113/78 99 04/01/17 04:01 117 H 41 H 113/78 98 04/01/17 04:00 113 H 41 H 98 04/01/17 03:45 116 H 32 H 113/78 98 04/01/17 03:31 116 H 42 H 113/78 99 04/01/17 03:22 103.1 F H 04/01/17 03:15 116 H 41 H 113/78 99 04/01/17 03:01 116 H 43 H 113/78 97 04/01/17 02:45 115 H 44 H 113/78 93 04/01/17 02:31 121 H 37 H 113/78 89 04/01/17 02:15 117 H 39 H 113/78 93 04/01/17 02:01 111 H 40 H 113/78 96 04/01/17 01:45 110 H 41 H 121/89 96 04/01/17 01:31 109 H 43 H 121/89 96 04/01/17 01:15 108 H 37 H 121/89 96 04/01/17 01:00 107 H 43 H 121/89 97 04/01/17 00:45 107 H 40 H 110/68 97 04/01/17 00:36 109 H 121/89 95 04/01/17 00:31 103 H 40 H 110/68 96 04/01/17 00:15 102 H 39 H 110/68 97 04/01/17 00:01 101 H 38 H 112/72 97 04/01/17 00:00 130 H 44 H 98 03/31/17 23:45 104 H 37 H 110/68 96 03/31/17 23:31 113 H 29 H 110/68 95 03/31/17 23:21 97.9 F 03/31/17 23:15 122 H 37 H 110/68 93 03/31/17 23:01 113 H 133/78 03/31/17 23:00 115 H 36 H 110/68 95 03/31/17 22:45 113 H 37 H 106/66 95 03/31/17 22:31 112 H 37 H 106/66 95 03/31/17 22:15 111 H 35 H 106/66 95 03/31/17 22:00 118 H 37 H 106/66 94 03/31/17 21:45 114 H 37 H 102/67 94 03/31/17 21:31 111 H 37 H 102/67 94 03/31/17 21:15 112 H 36 H 102/67 94 03/31/17 21:00 112 H 36 H 103/71 93 03/31/17 20:45 115 H 36 H 102/67 93 03/31/17 20:31 114 H 35 H 102/67 95 03/31/17 20:15 114 H 37 H 102/67 94 03/31/17 20:07 113 H 113/63 95 03/31/17 20:00 100.4 F H 113 H 118 H 38 H 102/67 98 03/31/17 19:45 114 H 37 H 104/69 94 03/31/17 19:31 115 H 37 H 104/69 94 03/31/17 19:15 113 H 35 H 104/69 95 03/31/17 19:00 114 H 36 H 103/63 94 03/31/17 18:45 112 H 36 H 115/67 94 03/31/17 18:31 113 H 38 H 115/67 94 03/31/17 18:15 112 H 36 H 104/69 96 03/31/17 18:00 112 H 39 H 104/69 96 03/31/17 17:49 111 H 38 H 115/67 96 03/31/17 17:45 113 H 38 H 115/67 96 03/31/17 17:31 111 H 37 H 115/67 95 03/31/17 17:15 109 H 37 H 115/67 95 03/31/17 17:01 111 H 113/63 03/31/17 17:00 112 H 36 H 115/67 96 03/31/17 16:45 111 H 36 H 107/71 95 18 16:30 112 H 36 H 110/72 97 03/31/17 16:16 113 H 117/64 95 03/31/17 16:15 113 H 36 H 110/72 95 03/31/17 16:00 102.5 F H 112 H 37 H 110/72 96 03/31/17 15:45 110 H 35 H 107/71 96 03/31/17 15:31 112 H 35 H 107/71 97 03/31/17 15:15 110 H 35 H 107/71 96 03/31/17 15:01 115 H 36 H 107/71 96 03/31/17 14:45 109 H 32 H 94/67 95 03/31/17 14:31 109 H 32 H 94/67 95 03/31/17 14:15 118 H 33 H 94/67 96 03/31/17 14:01 106 H 33 H 94/67 95 03/31/17 13:45 133 H 33 H 99/66 96 03/31/17 13:31 111 H 33 H 99/66 95 03/31/17 13:15 122 H 33 H 99/66 95 03/31/17 13:00 107 H 33 H 99/66 96 03/31/17 12:45 103 H 33 H 108/72 95 03/31/17 12:31 107 H 34 H 108/72 95 03/31/17 12:15 108 H 35 H 108/72 96 03/31/17 12:11 105 H 111/65 96 03/31/17 12:00 101.5 F H 105 H 35 H 108/72 97 - Physical Examination General: Other (unresponsive on the vent) HEENT: Positive: Other (unresponsive, vent) Neck: Positive: neck supple, trachea midline. Negative: JVD/HJR Cardiac: Positive: Regular Rate, S1/S2, PMI, Laterally Displaced Lungs: Positive: clear to auscultation, No Wheeze, Rales, Rhonchi Neuro: Positive: Other (unresponsive post VF arrest) Abdomen: Positive: Soft, Active Bowel Sounds Skin: Positive: Clear Extremities: Absent: edema - Labs and Meds Lipids 04/01/17 Range/Units 04:29 Triglycerides 151 H (2-149) mg/dL - Telemetry EKG Rhythm: Sinus Rhythm
--- NOTE | 2017-04-01 12:05 | Progress Note ---
Assessment and Plan Assessment and plan: 46 YO Male with No PMH presents to ED for evaluation. Pt is unresponsive and unable to provide history. Pt history taken from ED staff and EMS. Pt was at work today and suddenly passed out around 1050 hrs-which was witnessed by patients coworkers. EMS notified, and upon arrival the patient was found to have V Fib. Pt treated IAW ACLS protocol. The patient was given 3 defibrillations, 2 rounds of epinephrine, Narcan, and a half amp of sodium bicarbonate. Pt found to be in respiratory distress and was intubated and placed on vent support. Cardiology team notified, and patient was taken urgently to laboratory chemical assistant, and admitted to ICU. Acute Respiratory failure requiring MV <96 hours Pt intubated, Placed on vent support, Pulmonary consulted, Wean vent as tolerated, daily SBT, Daily sedation holiday, Anterior STEMI sp cardiac arrest case dw cardiology Emergency cath protocol called upon arrival, we found 100% occlusion of the LAD in its prox-mid segment. Successful primari PCI-angioplasty and 3.0-3.5mm BM stents deployed. LAD flow restored-excellent result. Heparin drip was discontinued per cardiology, optimize meds Shock -Likely cardiogenic and possibly also septic shock Currently off pressors, has been weaned Sepsis/Right lower lobe aspiration pneumonia, most likely due to gram-positive bacteria -Started on Zosyn and Vanco, obtain sputum cultures, obtain UA and urine culture Case discussed with infectious disease Hypokalemia Now resolved Anoxic Brain injury, Anoxic encephalopathy Most likely anoxic brain injury, patient has been off sedation and still obtunded and nonresponsive. He likely had aprolonged period of time without perfusion to his brain. We will continue to monitor his mental status, -His prognosis is grim with very little chance of recovery, this has been conveyed to the family. We would recommend hospice and withdrawal of life supports versus trach and SNIF placement. The family are discussing this amongst themselves. Critical care physician and neurologist also conveyed the same information to the family The high probability of a clinically significant, sudden or life threatening deterioration of the [Pulmonary, cardiac, renal] system(s) required my full and direct attention, intervention and personal management. The aggregate critical care time was [65] minutes. This time is in addition to time spent performing reported procedures but includes the following: [x] Data Review and interpretation [x] Patient assessment and monitoring of vital signs [x] Documentation [x] Medication orders and management History Interval history: Patient is nonresponsive, lacks most reflexes, had fever, no vomiting, no agitation Hospitalist Physical - Physical exam Narrative exam: General.: Comatose HEENT: Moist mucous membranes, no LAD, orbital edema noted Neck: supple Cardiac: S1-S2 heard Lungs: clear to auscultation bilaterally Abdomen: soft , nontender, nondistended, bowel sounds positive Extremities: no edema clubbing or cyanosis Skin: no rash or lesions Neurologic: Patient is in deep coma, lacks most reflexes - Constitutional Vitals: Temp Pulse Resp BP Pulse Ox 98.3 F 100 H 32 H 133/81 100 04/01/17 08:00 04/01/17 11:25 04/01/17 09:31 04/01/17 11:25 04/01/17 09:31 General appearance: Present: severe distress Results - Labs CBC & Chem 7: 03/31/17 05:30 03/31/17 09:22 Labs: Laboratory Last Values WBC 19.5 K/mm3 (4.5-11.0) H 03/30/17 03:50 RBC 4.57 M/mm3 (3.65-5.03) 03/30/17 03:50 Hgb 13.2 gm/dl (11.8-15.2) 03/31/17 05:30 Hct 38.2 % (35.5-45.6) 03/31/17 05:30 MCV 93 fl (84-94) 03/30/17 03:50 MCH 32 pg (28-32) 03/30/17 03:50 MCHC 34 % (32-34) 03/30/17 03:50 RDW 14.0 % (13.2-15.2) 03/30/17 03:50 Plt Count 140 K/mm3 (140-440) 03/31/17 05:30 Add Manual Diff Complete 03/30/17 03:50 Total Counted 100 03/30/17 03:50 Seg Neuts % (Manual) 65.0 % (40.0-70.0) 03/30/17 03:50 Band Neutrophils % 17.0 % 03/30/17 03:50 Lymphocytes % (Manual) 7.0 % (13.4-35.0) L 03/30/17 03:50 Reactive Lymphs % (Man) 0 % 03/30/17 03:50 Monocytes % (Manual) 7.0 % (0.0-7.3) 03/30/17 03:50 Eosinophils % (Manual) 0 % (0.0-4.3) 03/30/17 03:50 Basophils % (Manual) 0 % (0.0-1.8) 03/30/17 03:50 Metamyelocytes % 4.0 % 03/30/17 03:50 Myelocytes % 0 % 03/30/17 03:50 Promyelocytes % 0 % 03/30/17 03:50 Blast Cells % 0 % 03/30/17 03:50 Nucleated RBC % Not Reportable 03/30/17 03:50 Seg Neutrophils # Man 12.7 K/mm3 (1.8-7.7) H 03/30/17 03:50 Band Neutrophils # 3.3 K/mm3 03/30/17 03:50 Lymphocytes # (Manual) 1.4 K/mm3 (1.2-5.4) 03/30/17 03:50 Abs React Lymphs (Man) 0.0 K/mm3 03/30/17 03:50 Monocytes # (Manual) 1.4 K/mm3 (0.0-0.8) H 03/30/17 03:50 Eosinophils # (Manual) 0.0 K/mm3 (0.0-0.4) 03/30/17 03:50 Basophils # (Manual) 0.0 K/mm3 (0.0-0.1) 03/30/17 03:50 Metamyelocytes # 0.8 K/mm3 03/30/17 03:50 Myelocytes # 0.0 K/mm3 03/30/17 03:50 Promyelocytes # 0.0 K/mm3 03/30/17 03:50 Blast Cells # 0.0 K/mm3 03/30/17 03:50 WBC Morphology Not Reportable 03/30/17 03:50 Hypersegmented Neuts Not Reportable 03/30/17 03:50 Hyposegmented Neuts Not Reportable 03/30/17 03:50 Hypogranular Neuts Not Reportable 03/30/17 03:50 Smudge Cells Not Reportable 03/30/17 03:50 Toxic Granulation Not Reportable 03/30/17 03:50 Toxic Vacuolation Not Reportable 03/30/17 03:50 Dohle Bodies Not Reportable 03/30/17 03:50 Pelger-Huet Anomaly Not Reportable 03/30/17 03:50 Sherry Rods Not Reportable 03/30/17 03:50 Platelet Estimate Appears normal 03/30/17 03:50 Clumped Platelets Not Reportable 03/30/17 03:50 Plt Clumps, EDTA Not Reportable 03/30/17 03:50 Large Platelets Not Reportable 03/30/17 03:50 Giant Platelets Not Reportable 03/30/17 03:50 Platelet Satelliting Not Reportable 03/30/17 03:50 Plt Morphology Comment Not Reportable 03/30/17 03:50 RBC Morphology Not Reportable 03/30/17 03:50 Dimorphic RBCs Not Reportable 03/30/17 03:50 Polychromasia Not Reportable 03/30/17 03:50 Hypochromasia Not Reportable 03/30/17 03:50 Poikilocytosis Not Reportable 03/30/17 03:50 Anisocytosis Few 03/30/17 03:50 Microcytosis Not Reportable 03/30/17 03:50 Macrocytosis Not Reportable 03/30/17 03:50 Spherocytes Not Reportable 03/30/17 03:50 Pappenheimer Bodies Not Reportable 03/30/17 03:50 Sickle Cells Not Reportable 03/30/17 03:50 Target Cells Not Reportable 03/30/17 03:50 Tear Drop Cells Not Reportable 03/30/17 03:50 Ovalocytes Not Reportable 03/30/17 03:50 Helmet Cells Not Reportable 03/30/17 03:50 [place] Bodies Not Reportable 03/30/17 03:50 [place] Rings Not Reportable 03/30/17 03:50 [place] Cells Not Reportable 03/30/17 03:50 Bite Cells Not Reportable 03/30/17 03:50 Crenated Cell Not Reportable 03/30/17 03:50 Elliptocytes Not Reportable 03/30/17 03:50 Acanthocytes (Spur) Not Reportable 03/30/17 03:50 Rouleaux Not Reportable 03/30/17 03:50 Hemoglobin C Crystals Not Reportable 03/30/17 03:50 Schistocytes Not Reportable 03/30/17 03:50 Malaria parasites Not Reportable 03/30/17 03:50 Jermaine Bodies Not Reportable 03/30/17 03:50 Hem Pathologist Commnt No 03/30/17 03:50 PT 15.8 Sec. (12.2-14.9) H 03/29/17 11:35 INR 1.20 (0.87-1.13) H 03/29/17 11:35 APTT 34.8 Sec. (24.2-36.6) 03/29/17 11:35 Activated Clotting Time 92 (74-137) 03/29/17 17:47 POC ABG pH 7.513 (7.35-7.45) H 04/01/17 05:01 POC ABG pCO2 22.1 (35-45) L 04/01/17 05:01 POC ABG pO2 64 (80-105) L 04/01/17 05:01 POC ABG HCO3 17.7 04/01/17 05:01 POC ABG Total CO2 18 04/01/17 05:01 POC ABG O2 Sat 95 04/01/17 05:01 POC ABG Base Excess -5 04/01/17 05:01 FiO2 45 % 04/01/17 05:01 Sodium 144 mmol/L (137-145) 03/31/17 09:22 Potassium 3.6 mmol/L (3.6-5.0) 03/31/17 09:22 Chloride 106.5 mmol/L (98-107) 03/31/17 09:22 Carbon Dioxide 19 mmol/L (22-30) L 03/31/17 09:22 Anion Gap 22 mmol/L 03/31/17 09:22 BUN 22 mg/dL (9-20) H 03/31/17 09:22 Creatinine 0.6 mg/dL (0.8-1.5) L 03/31/17 09:22 Estimated GFR > 60 ml/min 03/31/17 09:22 BUN/Creatinine Ratio 37 % 03/31/17 09:22 Glucose 148 mg/dL (75-100) H 03/31/17 09:22 POC Glucose 148 (70-105) H 03/31/17 23:38 Calcium 8.3 mg/dL (8.4-10.2) L 03/31/17 09:22 Total Bilirubin 0.50 mg/dL (0.1-1.2) 03/29/17 11:35 AST 32 units/L (5-40) 03/29/17 11:35 ALT 25 units/L (7-56) 03/29/17 11:35 Alkaline Phosphatase 112 units/L (35-129) 03/29/17 11:35 Total Creatine Kinase 7963 units/L (55-170) H 03/30/17 03:50 CK-MB (CK-2) > 300.0 ng/mL (0.0-4.0) H 03/30/17 03:50 CK-MB (CK-2) Rel Index 3.7 (0-4) 03/30/17 03:50 Troponin T 6.850 ng/mL (0.00-0.029) H* 03/30/17 03:50 C-Reactive Protein 21.80 mg/dL (0.00-1.30) H 03/30/17 16:04 Total Protein 6.1 g/dL (6.3-8.2) L 03/29/17 11:35 Albumin 3.5 g/dL (3.9-5) L 03/29/17 11:35 Albumin/Globulin Ratio 1.3 % 03/29/17 11:35 Triglycerides 151 mg/dL (2-149) H 04/01/17 04:29 Cholesterol 164 mg/dL (50-199) 03/29/17 19:52 LDL Cholesterol Direct 81 mg/dL (50-130) 03/29/17 19:52 HDL Cholesterol 44 mg/dL (40-59) 03/29/17 19:52 Cholesterol/HDL Ratio 3.72 % 03/29/17 19:52 Urine Color Yellow (Yellow) 03/30/17 09:45 Urine Turbidity Turbid (Clear) 03/30/17 09:45 Urine pH 5.0 (5.0-7.0) 03/30/17 09:45 Ur Specific [place] 1.031 (1.003-1.030) H 03/30/17 09:45 Urine Protein 30 mg/dl mg/dL (Negative) 03/30/17 09:45 Urine Glucose (UA) Neg mg/dL (Negative) 03/30/17 09:45 Urine Ketones 20 mg/dL (Negative) 03/30/17 09:45 Urine Blood Mod (Negative) 03/30/17 09:45 Urine Nitrite Neg (Negative) 03/30/17 09:45 Urine Bilirubin Neg (Negative) 03/30/17 09:45 Urine Urobilinogen < 2.0 mg/dL (<2.0) 03/30/17 09:45 Ur Leukocyte Esterase Tr (Negative) 03/30/17 09:45 Urine WBC (Auto) 1.0 /HPF (0.0-6.0) 03/30/17 09:45 Urine RBC (Auto) 14.0 /HPF (0.0-6.0) 03/30/17 09:45 Amorphous Crystals 1+ 03/30/17 09:45 Urine Opiates Screen Presumptive negative 03/30/17 09:45 Urine Methadone Screen Presumptive negative 03/30/17 09:45 Ur Barbiturates Screen Presumptive negative 03/30/17 09:45 Ur Phencyclidine Scrn Presumptive negative 03/30/17 09:45 Ur Amphetamines Screen Presumptive positive 03/30/17 09:45 U Benzodiazepines Scrn Presumptive positive 03/30/17 09:45 Urine Cocaine Screen Presumptive negative 03/30/17 09:45 U Marijuana (THC) Screen Presumptive negative 03/30/17 09:45 Drugs of Abuse Note Disclamer 03/30/17 09:45 Blood Type O POSITIVE 03/29/17 11:35 Antibody Screen Negative 03/29/17 11:35
--- NOTE | 2017-04-01 12:11 | Consultation ---
History of Present Illness Consult date: 04/01/17 History of present illness: went over the test results with the brother and provided neuro opinions Past History Past Medical History: No medical history (Reviewed) Past Surgical History: No surgical history, Other (reviewed.) Social history: single. denies: smoking, alcohol abuse, prescription drug abuse Family history: no significant family history Medications and Allergies Allergies Allergy/AdvReac Type Severity Reaction Status Date / Time No Known Allergies Allergy Unverified 03/29/17 11:35 Home Medications Medication Instructions Recorded Confirmed Last Taken Type No Known Home Medications [No 03/30/17 03/30/17 Unknown History Reported Home Medications] Active Meds: Active Medications Acetaminophen (Tylenol) 1,000 mg PO Q6H PRN PRN Reason: Fever >101 Last Admin: 04/01/17 05:20 Dose: 1,000 mg Albuterol (Proventil) 2.5 mg IH Q3HRT PRN PRN Reason: Shortness Of Breath Amiodarone HCl (Cordarone) 200 mg PO BID [facility] Lipase/Protease/Amylase (Pancreaze Dr 10,500 Unit) 1 each FEEDTUBE PRN PRN PRN Reason: For Clogged Feeding Tube Aspirin (Aspirin) 300 mg NM QDAY [facility] Last Admin: 04/01/17 11:24 Dose: 300 mg Atorvastatin Calcium (Lipitor) 20 mg PO QHS [facility] Last Admin: 03/31/17 23:21 Dose: 20 mg Clopidogrel Bisulfate (Plavix) 75 mg PO QDAY [facility] Last Admin: 04/01/17 11:23 Dose: 75 mg Dextrose (D50w (25gm) Syringe) 50 ml IV PRN PRN PRN Reason: Hypoglycemia Heparin Sodium (Porcine) (Heparin) 5,000 unit SUB-Q Q12HR [facility] Last Admin: 03/31/17 22:51 Dose: 5,000 unit Hydrophilic Ointment (Vaseline Lip Therapy) 1 applic TP Q2HR PRN PRN Reason: Dry Lips Last Admin: 03/31/17 22:50 Dose: 1 applic Fentanyl Citrate (Fentanyl Drip Premix) 2,000 mcg in 100 mls @ 4.309 mls/hr IV TITR CHETAN; 1 MCG/KG/HR PRN Reason: Protocol Midazolam HCl 100 mg/ Sodium (Chloride) 100 mls @ 2 mls/hr IV TITR CHETAN; 2 MG/HR PRN Reason: Protocol Last Titration: 03/30/17 09:00 Dose: 0 mg/hr, 0 mls/hr Propofol (Diprivan 10 Mg/Ml) 1,000 mg in 100 mls @ 2.585 mls/hr IV TITR CHETAN; 5 MCG/KG/MIN PRN Reason: Protocol Last Titration: 03/30/17 18:20 Dose: 0 mcg/kg/min, 0 mls/hr Norepinephrine (Levophed Drip 4 Mg/Ns 250 Ml) 4 mg in 250 mls @ 7.5 mls/hr IV TITR CHETAN; 2 MCG/MIN PRN Reason: Protocol Last Titration: 03/30/17 09:00 Dose: 10 mcg/min, 37.5 mls/hr Piperacillin Sod/Tazobactam Sod (Zosyn/Ns 4.5gm/100ml) 4.5 gm in 100 mls @ 200 mls/hr IV Q8HR CHETAN PRN Reason: Protocol Last Admin: 04/01/17 06:00 Dose: 200 mls/hr Amiodarone HCl 900 mg/ (Dextrose) 500 mls @ 33.33 mls/hr IV DIRECT CHETAN; 1 MG /MIN PRN Reason: Protocol Last Admin: 04/01/17 06:00 Dose: 1 mg/min, 33.33 mls/hr Lisinopril (Zestril) 5 mg PO QDAY [facility] Last Admin: 04/01/17 11:23 Dose: 5 mg Metoprolol Tartrate (Lopressor) 50 mg PO BID [facility] Last Admin: 04/01/17 11:23 Dose: 50 mg Multi-Ingred Cream/Lotion/Oil/Oint (Artificial Tears Ophth Oint) 1 applic OU Q4HR PRN PRN Reason: Dry Eye(s) Last Admin: 03/31/17 22:51 Dose: 1 applic Nitroglycerin (Nitro-Bid 2%) 1 inch TP QIDNTG CHETAN PRN Reason: Protocol Last Admin: 04/01/17 11:25 Dose: 1 inch Pantoprazole (Protonix) 40 mg FEEDTUBE DAILY [facility] Simple Syrup (Simple Syrup) 15 ml FEEDTUBE PRN PRN PRN Reason: Hypoglycemia Simple Syrup (Simple Syrup) 30 ml FEEDTUBE PRN PRN PRN Reason: Hypoglycemia Sodium Bicarbonate (Sodium Bicarbonate) 325 mg FEEDTUBE PRN PRN PRN Reason: For Clogged Feeding Tube Physical Examination - Vital Signs Vital Signs: Vital Signs Pulse Resp Pulse Ox 113 H 28 H 93 03/29/17 11:33 03/29/17 11:33 03/29/17 11:33 Results - Laboratory Findings CBC and BMP: 03/31/17 05:30 03/31/17 09:22 Abnormal Lab Findings: Abnormal Labs 03/29/17 03/29/17 03/29/17 11:35 11:35 11:40 WBC MCV 98 H MCH 33 H Lymphocytes % (Manual) Monocytes % (Manual) 9.0 H Nucleated RBC % 1.0 H Seg Neutrophils # Man Monocytes # (Manual) 0.9 H PT 15.8 H INR 1.20 H Activated Clotting Time POC ABG pH POC ABG pCO2 POC ABG pO2 Potassium 2.7 L* Chloride 95.3 L Carbon Dioxide 17 L BUN Creatinine Glucose 435 H POC Glucose Calcium Total Creatine Kinase CK-MB (CK-2) CK-MB (CK-2) Rel Index Troponin T C-Reactive Protein Total Protein 6.1 L Albumin 3.5 L Triglycerides Ur Specific [place] 03/29/17 03/29/17 03/29/17 12:34 13:10 13:25 WBC MCV MCH Lymphocytes % (Manual) Monocytes % (Manual) Nucleated RBC % Seg Neutrophils # Man Monocytes # (Manual) PT INR Activated Clotting Time 142 H 169 H 175 H POC ABG pH POC ABG pCO2 POC ABG pO2 Potassium Chloride Carbon Dioxide BUN Creatinine Glucose POC Glucose Calcium Total Creatine Kinase CK-MB (CK-2) CK-MB (CK-2) Rel Index Troponin T C-Reactive Protein Total Protein Albumin Triglycerides Ur Specific [place] 03/29/17 03/29/17 03/29/17 14:50 15:18 19:52 WBC MCV MCH Lymphocytes % (Manual) Monocytes % (Manual) Nucleated RBC % Seg Neutrophils # Man Monocytes # (Manual) PT INR Activated Clotting Time 175 H POC ABG pH 7.293 L POC ABG pCO2 POC ABG pO2 602 H Potassium Chloride Carbon Dioxide BUN Creatinine Glucose POC Glucose Calcium Total Creatine Kinase 7263 H CK-MB (CK-2) > 300.0 H CK-MB (CK-2) Rel Index 4.1 H Troponin T 8.080 H* D C-Reactive Protein Total Protein Albumin Triglycerides 195 H Ur Specific [place] 03/30/17 03/30/17 03/30/17 03:50 03:50 06:19 WBC 19.5 H MCV MCH Lymphocytes % (Manual) 7.0 L Monocytes % (Manual) Nucleated RBC % Seg Neutrophils # Man 12.7 H Monocytes # (Manual) 1.4 H PT INR Activated Clotting Time POC ABG pH POC ABG pCO2 28.2 L POC ABG pO2 108 H Potassium Chloride 108.9 H Carbon Dioxide 15 L BUN 25 H Creatinine Glucose 158 H POC Glucose Calcium 8.1 L Total Creatine Kinase 7963 H CK-MB (CK-2) > 300.0 H CK-MB (CK-2) Rel Index Troponin T 6.850 H* C-Reactive Protein Total Protein Albumin Triglycerides Ur Specific [place] 03/30/17 03/30/17 03/31/17 09:45 16:04 02:19 WBC MCV MCH Lymphocytes % (Manual) Monocytes % (Manual) Nucleated RBC % Seg Neutrophils # Man Monocytes # (Manual) PT INR Activated Clotting Time POC ABG pH POC ABG pCO2 POC ABG pO2 Potassium Chloride Carbon Dioxide BUN Creatinine Glucose POC Glucose 137 H Calcium Total Creatine Kinase CK-MB (CK-2) CK-MB (CK-2) Rel Index Troponin T C-Reactive Protein 21.80 H Total Protein Albumin Triglycerides Ur Specific [place] 1.031 H 03/31/17 03/31/17 03/31/17 03:57 06:54 09:22 WBC MCV MCH Lymphocytes % (Manual) Monocytes % (Manual) Nucleated RBC % Seg Neutrophils # Man Monocytes # (Manual) PT INR Activated Clotting Time POC ABG pH 7.475 H POC ABG pCO2 25.4 L POC ABG pO2 62 L Potassium Chloride Carbon Dioxide 19 L BUN 22 H Creatinine 0.6 L Glucose 148 H POC Glucose 143 H Calcium 8.3 L Total Creatine Kinase CK-MB (CK-2) CK-MB (CK-2) Rel Index Troponin T C-Reactive Protein Total Protein Albumin Triglycerides Ur Specific [place] 03/31/17 03/31/17 03/31/17 11:40 17:47 23:38 WBC MCV MCH Lymphocytes % (Manual) Monocytes % (Manual) Nucleated RBC % Seg Neutrophils # Man Monocytes # (Manual) PT INR Activated Clotting Time POC ABG pH POC ABG pCO2 POC ABG pO2 Potassium Chloride Carbon Dioxide BUN Creatinine Glucose POC Glucose 127 H 137 H 148 H Calcium Total Creatine Kinase CK-MB (CK-2) CK-MB (CK-2) Rel Index Troponin T C-Reactive Protein Total Protein Albumin Triglycerides Ur Specific Varney 04/01/17 04/01/17 04:29 05:01 WBC MCV MCH Lymphocytes % (Manual) Monocytes % (Manual) Nucleated RBC % Seg Neutrophils # Man Monocytes # (Manual) PT INR Activated Clotting Time POC ABG pH 7.513 H POC ABG pCO2 22.1 L POC ABG pO2 64 L Potassium Chloride Carbon Dioxide BUN Creatinine Glucose POC Glucose Calcium Total Creatine Kinase CK-MB (CK-2) CK-MB (CK-2) Rel Index Troponin T C-Reactive Protein Total Protein Albumin Triglycerides 151 H Ur Specific [place]
--- NOTE | 2017-04-01 16:25 | Consultation ---
Room#: 357 This EEG shows a background rhythm which consists of very poorly organized sharp activity with a great deal of movement artifact. Majority of the background rhythm consists of very small dysrhythmic activity consisting of sweating artifact with very minimal background cerebral activity. I think most of this activity is actually electrical contamination rather than a background rhythm. I do not see any evidence of any spike wave foci. This EEG is not isoelectric. I think the background rhythm consists of extremely low voltage delta activity, but differentiation is difficult given the amount of electrical artifact. JOB# [id number] DANIKA/NTS
[2017-04-01] MEDS: CORDARONE PO SCH ×2 (16:56→21:45)
[2017-04-01] MEDS: PROTONIX FEEDTUBE SCH (16:58)
[2017-04-02] MEDS: ZOSYN/NS 4.5GM/100ML 4.5 GM/100 ML VIAL IV SCH ×3 (04:59→21:37)
[2017-04-02] MEDS: NITRO-BID 2% TP SCH ×4 (06:43→18:00)
[2017-04-02] MEDS: PROTONIX FEEDTUBE SCH (10:14)
[2017-04-02] MEDS: LOPRESSOR PO SCH ×2 (10:14→21:53)
[2017-04-02] MEDS: ASPIRIN PR SCH (10:14)
[2017-04-02] MEDS: PLAVIX PO SCH (10:14)
[2017-04-02] MEDS: HEPARIN SUB-Q SCH ×2 (10:15→21:51)
[2017-04-02] MEDS: CORDARONE PO SCH ×2 (10:16→21:38)
[2017-04-02] MEDS: ZESTRIL PO SCH (10:17)
--- NOTE | 2017-04-02 10:24 | Progress Note ---
Assessment and Plan 1. Status post cardiac arrest. 2. Status post acute anterior ST elevation [place]. 3. Status post PCI to the left anterior descending artery with bare metal stent deployed. 4. Ischemic cardiomyopathy left ventricular ejection fraction 50-55% 5. Respiratory failure 6. Possible anoxic Encephalopathy Plan. Currently stable continue supportive cardiac management. Continue present medication. Subjective Date of service: 04/02/17 Principal diagnosis: septic shock Interval history: Patient intubated and sedated on mechanical vent Objective Vital Signs Temp Pulse Pulse Resp BP Pulse Ox 04/02/17 10:17 79 109/61 04/02/17 10:14 79 109/61 04/02/17 09:03 99.6 F 04/02/17 08:37 85 26 H 110/69 98 04/02/17 08:24 87 110/69 96 04/02/17 06:43 80 106/62 04/02/17 06:30 82 29 H 106/62 99 04/02/17 06:16 82 26 H 106/62 98 04/02/17 06:00 80 24 106/62 99 04/02/17 05:46 81 24 103/63 99 04/02/17 05:30 81 25 H 103/63 98 04/02/17 05:16 81 24 103/63 98 04/02/17 05:00 81 24 103/63 99 04/02/17 04:50 80 106/62 98 04/02/17 04:46 82 26 H 106/62 99 04/02/17 04:30 80 26 H 106/62 98 04/02/17 04:16 80 26 H 106/62 98 04/02/17 04:00 79 80 25 H 106/62 96 04/02/17 03:46 91 H 13 102/67 93 04/02/17 03:38 99.5 F 04/02/17 03:30 92 H 31 H 102/67 100 04/02/17 03:16 84 32 H 102/67 04/02/17 03:00 85 102/67 97 04/02/17 02:46 82 26 H 111/66 95 04/02/17 02:30 81 31 H 111/66 99 04/02/17 02:16 89 19 111/66 93 04/02/17 02:00 86 27 H 104/65 93 04/02/17 01:46 88 24 104/65 99 04/02/17 01:30 79 23 104/65 98 04/02/17 01:16 78 22 104/65 98 04/02/17 01:00 79 23 104/65 99 04/02/17 00:46 81 22 102/61 98 04/02/17 00:30 80 23 102/61 98 04/02/17 00:16 89 21 102/61 98 04/02/17 00:00 83 78 23 102/61 97 04/01/17 23:51 99.1 F 04/01/17 23:50 91 H 104/62 100 04/01/17 23:46 83 23 104/62 98 04/01/17 23:30 85 24 104/62 98 04/01/17 23:16 87 24 104/62 98 04/01/17 23:00 86 24 104/62 98 04/01/17 22:46 92 H 24 110/64 99 04/01/17 22:30 93 H 28 H 110/64 99 04/01/17 22:16 90 27 H 111/63 99 04/01/17 22:00 92 H 26 H 111/63 99 04/01/17 21:47 92 H 110/64 04/01/17 21:46 92 H 28 H 110/64 98 04/01/17 21:30 94 H 27 H 110/64 97 04/01/17 21:16 94 H 27 H 110/64 98 04/01/17 21:08 94 H 26 H 110/64 98 04/01/17 21:00 97 H 25 H 110/64 98 04/01/17 20:46 96 H 28 H 110/71 98 04/01/17 20:30 94 H 28 H 110/71 99 04/01/17 20:16 94 H 27 H 110/71 98 04/01/17 20:00 102.6 F H 93 H 102 H 26 H 110/66 100 04/01/17 19:46 93 H 27 H 110/71 98 04/01/17 19:38 102 H 147/68 04/01/17 19:30 92 H 27 H 110/71 100 04/01/17 19:20 92 H 110/71 99 04/01/17 19:16 92 H 27 H 110/71 100 04/01/17 19:00 93 H 29 H 110/71 99 04/01/17 18:46 93 H 28 H 116/74 99 18 18:30 93 H 29 H 116/74 99 04/01/17 18:16 94 H 29 H 116/74 100 04/01/17 18:00 96 H 31 H 116/74 100 04/01/17 17:46 94 H 31 H 109/70 100 04/01/17 17:30 92 H 29 H 100 04/01/17 17:16 89 30 H 109/70 100 04/01/17 17:00 93 H 31 H 109/70 99 04/01/17 16:50 90 128/80 98 04/01/17 16:45 91 H 27 H 101/64 99 04/01/17 16:31 89 30 H 101/64 98 04/01/17 16:15 86 31 H 101/64 99 04/01/17 16:00 100.7 F H 87 110 H 31 H 101/64 99 04/01/17 15:45 87 29 H 100/68 99 04/01/17 15:31 95 H 29 H 100/68 98 04/01/17 15:15 86 29 H 100/68 98 04/01/17 15:01 88 31 H 100/68 98 04/01/17 14:45 88 30 H 99/60 98 04/01/17 14:31 88 32 H 99/60 100 04/01/17 14:15 87 31 H 99/60 98 04/01/17 14:01 97 H 36 H 99/60 100 04/01/17 13:45 89 30 H 99/60 99 04/01/17 13:31 88 31 H 99/60 99 04/01/17 13:15 89 30 H 99/60 99 04/01/17 13:01 89 30 H 99/60 99 04/01/17 12:45 91 H 32 H 108/67 99 04/01/17 12:31 92 H 33 H 108/67 100 04/01/17 12:18 95 H 121/75 99 04/01/17 12:15 93 H 33 H 108/67 99 04/01/17 12:00 100.7 F H 95 H 104 H 36 H 108/67 100 04/01/17 11:45 98 H 35 H 104/65 98 04/01/17 11:31 98 H 35 H 104/65 98 04/01/17 11:25 100 H 133/81 04/01/17 11:23 100 H 133/81 04/01/17 11:15 99 H 36 H 104/65 99 04/01/17 11:01 96 H 33 H 104/65 99 04/01/17 10:45 102 H 35 H 108/64 100 04/01/17 10:31 95 H 33 H 108/64 99 - Physical Examination General: Other (unresponsive on the vent) HEENT: Positive: Other (unresponsive, vent) Neck: Positive: neck supple, trachea midline. Negative: JVD/HJR Cardiac: Positive: Regular Rate, S1/S2, PMI Lungs: Positive: clear to auscultation, No Wheeze, Rales, Rhonchi Neuro: Positive: Other (unresponsive post VF arrest) Abdomen: Positive: Soft, Active Bowel Sounds Skin: Positive: Clear Extremities: Absent: edema - Telemetry EKG Rhythm: Sinus Rhythm
--- NOTE | 2017-04-02 10:35 | Progress Note ---
Assessment and Plan Assessment and plan: 46 YO Male with No PMH presents to ED for evaluation. Pt is unresponsive and unable to provide history. Pt history taken from ED staff and EMS. Pt was at work today and suddenly passed out around 1050 hrs-which was witnessed by patients coworkers. EMS notified, and upon arrival the patient was found to have V Fib. Pt treated IAW ACLS protocol. The patient was given 3 defibrillations, 2 rounds of epinephrine, Narcan, and a half amp of sodium bicarbonate. Pt found to be in respiratory distress and was intubated and placed on vent support. Cardiology team notified, and patient was taken urgently to environmental laboratory technician, and admitted to ICU. Acute Respiratory failure requiring MV >96 hours Pt intubated, Placed on vent support, Pulmonary consulted, Wean vent as tolerated, daily SBT, Daily sedation holiday, Anterior STEMI sp cardiac arrest case dw cardiology Emergency cath protocol called upon arrival, we found 100% occlusion of the LAD in its prox-mid segment. Successful primari PCI-angioplasty and 3.0-3.5mm BM stents deployed. LAD flow restored-excellent result. Heparin drip was discontinued per cardiology, optimize meds Shock -Likely cardiogenic and possibly also septic shock Currently off pressors, has been weaned Sepsis/Right lower lobe aspiration pneumonia, most likely due to gram-positive bacteria -Started on Zosyn and Vanco, obtain sputum cultures, obtain UA and urine culture Case discussed with infectious disease Hypokalemia Now resolved anoxic brain injury/anoxic encephalopathy Most likely anoxic brain injury, patient has been off sedation and still obtunded and nonresponsive. He likely had aprolonged period of time without perfusion to his brain. We will continue to monitor his mental status, -His prognosis is grim with very little chance of recovery, this has been conveyed to the family. We would recommend hospice and withdrawal of life supports versus trach and SNIF placement. The family are discussing this amongst themselves. Critical care physician and neurologist also conveyed the same information to the family Discussed with his brother who is leaning toward Trache/PEG then placement in LTACH to maximize his chance of recovery, but his sisters would have to weigh in in family meeting which is planned for tomorrow The high probability of a clinically significant, sudden or life threatening deterioration of the [Pulmonary, cardiac, renal] system(s) required my full and direct attention, intervention and personal management. The aggregate critical care time was [65] minutes. This time is in addition to time spent performing reported procedures but includes the following: [x] Data Review and interpretation [x] Patient assessment and monitoring of vital signs [x] Documentation [x] Medication orders and management History Interval history: Patient is nonresponsive, lacks most reflexes, had fever, no vomiting, no agitation Hospitalist Physical - Physical exam Narrative exam: General.: Comatose HEENT: Moist mucous membranes, no LAD, Neck: supple Cardiac: S1-S2 heard Lungs: clear to auscultation bilaterally Abdomen: soft , nontender, nondistended, bowel sounds positive Extremities: no edema clubbing or cyanosis Skin: no rash or lesions Neurologic: Patient is in deep coma, lacks most reflexes, at this time, only has gag reflexs, pupils are fixed and non reactive, lacks all other reflexes, opens eyes spontaneously - Constitutional Vitals: Temp Pulse Resp BP Pulse Ox 99.6 F 79 26 H 109/61 98 04/02/17 09:03 04/02/17 10:17 04/02/17 08:37 04/02/17 10:17 04/02/17 08:37 General appearance: Present: severe distress Results - Labs CBC & Chem 7: 03/31/17 05:30 03/31/17 09:22 Labs: Laboratory Last Values WBC 19.5 K/mm3 (4.5-11.0) H 03/30/17 03:50 RBC 4.57 M/mm3 (3.65-5.03) 03/30/17 03:50 Hgb 13.2 gm/dl (11.8-15.2) 03/31/17 05:30 Hct 38.2 % (35.5-45.6) 03/31/17 05:30 MCV 93 fl (84-94) 03/30/17 03:50 MCH 32 pg (28-32) 03/30/17 03:50 MCHC 34 % (32-34) 03/30/17 03:50 RDW 14.0 % (13.2-15.2) 03/30/17 03:50 Plt Count 140 K/mm3 (140-440) 03/31/17 05:30 Add Manual Diff Complete 03/30/17 03:50 Total Counted 100 03/30/17 03:50 Seg Neuts % (Manual) 65.0 % (40.0-70.0) 03/30/17 03:50 Band Neutrophils % 17.0 % 03/30/17 03:50 Lymphocytes % (Manual) 7.0 % (13.4-35.0) L 03/30/17 03:50 Reactive Lymphs % (Man) 0 % 03/30/17 03:50 Monocytes % (Manual) 7.0 % (0.0-7.3) 03/30/17 03:50 Eosinophils % (Manual) 0 % (0.0-4.3) 03/30/17 03:50 Basophils % (Manual) 0 % (0.0-1.8) 03/30/17 03:50 Metamyelocytes % 4.0 % 03/30/17 03:50 Myelocytes % 0 % 03/30/17 03:50 Promyelocytes % 0 % 03/30/17 03:50 Blast Cells % 0 % 03/30/17 03:50 Nucleated RBC % Not Reportable 03/30/17 03:50 Seg Neutrophils # Man 12.7 K/mm3 (1.8-7.7) H 03/30/17 03:50 Band Neutrophils # 3.3 K/mm3 03/30/17 03:50 Lymphocytes # (Manual) 1.4 K/mm3 (1.2-5.4) 03/30/17 03:50 Abs React Lymphs (Man) 0.0 K/mm3 03/30/17 03:50 Monocytes # (Manual) 1.4 K/mm3 (0.0-0.8) H 03/30/17 03:50 Eosinophils # (Manual) 0.0 K/mm3 (0.0-0.4) 03/30/17 03:50 Basophils # (Manual) 0.0 K/mm3 (0.0-0.1) 03/30/17 03:50 Metamyelocytes # 0.8 K/mm3 03/30/17 03:50 Myelocytes # 0.0 K/mm3 03/30/17 03:50 Promyelocytes # 0.0 K/mm3 03/30/17 03:50 Blast Cells # 0.0 K/mm3 03/30/17 03:50 WBC Morphology Not Reportable 03/30/17 03:50 Hypersegmented Neuts Not Reportable 03/30/17 03:50 Hyposegmented Neuts Not Reportable 03/30/17 03:50 Hypogranular Neuts Not Reportable 03/30/17 03:50 Smudge Cells Not Reportable 03/30/17 03:50 Toxic Granulation Not Reportable 03/30/17 03:50 Toxic Vacuolation Not Reportable 03/30/17 03:50 Dohle Bodies Not Reportable 03/30/17 03:50 Pelger-Huet Anomaly Not Reportable 03/30/17 03:50 Sherry Rods Not Reportable 03/30/17 03:50 Platelet Estimate Appears normal 03/30/17 03:50 Clumped Platelets Not Reportable 03/30/17 03:50 Plt Clumps, EDTA Not Reportable 03/30/17 03:50 Large Platelets Not Reportable 03/30/17 03:50 Giant Platelets Not Reportable 03/30/17 03:50 Platelet Satelliting Not Reportable 03/30/17 03:50 Plt Morphology Comment Not Reportable 03/30/17 03:50 RBC Morphology Not Reportable 03/30/17 03:50 Dimorphic RBCs Not Reportable 03/30/17 03:50 Polychromasia Not Reportable 03/30/17 03:50 Hypochromasia Not Reportable 03/30/17 03:50 Poikilocytosis Not Reportable 03/30/17 03:50 Anisocytosis Few 03/30/17 03:50 Microcytosis Not Reportable 03/30/17 03:50 Macrocytosis Not Reportable 03/30/17 03:50 Spherocytes Not Reportable 03/30/17 03:50 Pappenheimer Bodies Not Reportable 03/30/17 03:50 Sickle Cells Not Reportable 03/30/17 03:50 Target Cells Not Reportable 03/30/17 03:50 Tear Drop Cells Not Reportable 03/30/17 03:50 Ovalocytes Not Reportable 03/30/17 03:50 Helmet Cells Not Reportable 03/30/17 03:50 [place] Bodies Not Reportable 03/30/17 03:50 [place] Rings Not Reportable 03/30/17 03:50 Nusrat Cells Not Reportable 03/30/17 03:50 Bite Cells Not Reportable 03/30/17 03:50 Crenated Cell Not Reportable 03/30/17 03:50 Elliptocytes Not Reportable 03/30/17 03:50 Acanthocytes (Spur) Not Reportable 03/30/17 03:50 Rouleaux Not Reportable 03/30/17 03:50 Hemoglobin C Crystals Not Reportable 03/30/17 03:50 Schistocytes Not Reportable 03/30/17 03:50 Malaria parasites Not Reportable 03/30/17 03:50 Jermaine Bodies Not Reportable 03/30/17 03:50 Hem Pathologist Commnt No 03/30/17 03:50 PT 15.8 Sec. (12.2-14.9) H 03/29/17 11:35 INR 1.20 (0.87-1.13) H 03/29/17 11:35 APTT 34.8 Sec. (24.2-36.6) 03/29/17 11:35 Activated Clotting Time 92 (74-137) 03/29/17 17:47 POC ABG pH 7.524 (7.35-7.45) H 04/02/17 04:52 POC ABG pCO2 25.5 (35-45) L 04/02/17 04:52 POC ABG pO2 66 (80-105) L 04/02/17 04:52 POC ABG HCO3 21.0 04/02/17 04:52 POC ABG Total CO2 22 04/02/17 04:52 POC ABG O2 Sat 95 04/02/17 04:52 POC ABG Base Excess -2 04/02/17 04:52 FiO2 45 % 04/02/17 04:52 Sodium 144 mmol/L (137-145) 03/31/17 09:22 Potassium 3.6 mmol/L (3.6-5.0) 03/31/17 09:22 Chloride 106.5 mmol/L (98-107) 03/31/17 09:22 Carbon Dioxide 19 mmol/L (22-30) L 03/31/17 09:22 Anion Gap 22 mmol/L 03/31/17 09:22 BUN 22 mg/dL (9-20) H 03/31/17 09:22 Creatinine 0.6 mg/dL (0.8-1.5) L 03/31/17 09:22 Estimated GFR > 60 ml/min 03/31/17 09:22 BUN/Creatinine Ratio 37 % 03/31/17 09:22 Glucose 148 mg/dL (75-100) H 03/31/17 09:22 POC Glucose 132 (70-105) H 04/02/17 05:18 Calcium 8.3 mg/dL (8.4-10.2) L 03/31/17 09:22 Total Bilirubin 0.50 mg/dL (0.1-1.2) 03/29/17 11:35 AST 32 units/L (5-40) 03/29/17 11:35 ALT 25 units/L (7-56) 03/29/17 11:35 Alkaline Phosphatase 112 units/L (35-129) 03/29/17 11:35 Total Creatine Kinase 7963 units/L (55-170) H 03/30/17 03:50 CK-MB (CK-2) > 300.0 ng/mL (0.0-4.0) H 03/30/17 03:50 CK-MB (CK-2) Rel Index 3.7 (0-4) 03/30/17 03:50 Troponin T 6.850 ng/mL (0.00-0.029) H* 03/30/17 03:50 C-Reactive Protein 21.80 mg/dL (0.00-1.30) H 03/30/17 16:04 Total Protein 6.1 g/dL (6.3-8.2) L 03/29/17 11:35 Albumin 3.5 g/dL (3.9-5) L 03/29/17 11:35 Albumin/Globulin Ratio 1.3 % 03/29/17 11:35 Triglycerides 151 mg/dL (2-149) H 04/01/17 04:29 Cholesterol 164 mg/dL (50-199) 03/29/17 19:52 LDL Cholesterol Direct 81 mg/dL (50-130) 03/29/17 19:52 HDL Cholesterol 44 mg/dL (40-59) 03/29/17 19:52 Cholesterol/HDL Ratio 3.72 % 03/29/17 19:52 Urine Color Yellow (Yellow) 03/30/17 09:45 Urine Turbidity Turbid (Clear) 03/30/17 09:45 Urine pH 5.0 (5.0-7.0) 03/30/17 09:45 Ur Specific [place] 1.031 (1.003-1.030) H 03/30/17 09:45 Urine Protein 30 mg/dl mg/dL (Negative) 03/30/17 09:45 Urine Glucose (UA) Neg mg/dL (Negative) 03/30/17 09:45 Urine Ketones 20 mg/dL (Negative) 03/30/17 09:45 Urine Blood Mod (Negative) 03/30/17 09:45 Urine Nitrite Neg (Negative) 03/30/17 09:45 Urine Bilirubin Neg (Negative) 03/30/17 09:45 Urine Urobilinogen < 2.0 mg/dL (<2.0) 03/30/17 09:45 Ur Leukocyte Esterase Tr (Negative) 03/30/17 09:45 Urine WBC (Auto) 1.0 /HPF (0.0-6.0) 03/30/17 09:45 Urine RBC (Auto) 14.0 /HPF (0.0-6.0) 03/30/17 09:45 Amorphous Crystals 1+ 03/30/17 09:45 Urine Opiates Screen Presumptive negative 03/30/17 09:45 Urine Methadone Screen Presumptive negative 03/30/17 09:45 Ur Barbiturates Screen Presumptive negative 03/30/17 09:45 Ur Phencyclidine Scrn Presumptive negative 03/30/17 09:45 Ur Amphetamines Screen Presumptive positive 03/30/17 09:45 U Benzodiazepines Scrn Presumptive positive 03/30/17 09:45 Urine Cocaine Screen Presumptive negative 03/30/17 09:45 U Marijuana (THC) Screen Presumptive negative 03/30/17 09:45 Drugs of Abuse Note Disclamer 03/30/17 09:45 Blood Type O POSITIVE 03/29/17 11:35 Antibody Screen Negative 03/29/17 11:35
--- NOTE | 2017-04-02 12:26 | Progress Note ---
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 1. Continue cardiac meds 2. No sedation 3. Feeding patient 4. Per neuro, no seizure activity on EEG 5. Overall prognosis is very poor given amount of downtime. Appreciate neuro input, follow up the remainder of their work up. Likely will not regain consciousness CCT 31 minutes. Subjective Date of service: 04/02/17 Principal diagnosis: septic shock Interval history: No acute events. Mental status remains the same. Per neuro, spoke with family. Tolerating Pressure support and ABG on psv was good. Objective Vital Signs - 12hr 04/02/17 04/02/17 04/02/17 00:30 00:46 01:00 Temperature Pulse Rate 80 81 79 Pulse Rate [ From Monitor] Respiratory 23 22 23 Rate Blood Pressure 102/61 102/61 104/65 O2 Sat by Pulse 98 98 99 Oximetry 04/02/17 04/02/17 04/02/17 01:16 01:30 01:46 Temperature Pulse Rate 78 79 88 Pulse Rate [ From Monitor] Respiratory 22 23 24 Rate Blood Pressure 104/65 104/65 104/65 O2 Sat by Pulse 98 98 99 Oximetry 04/02/17 04/02/17 04/02/17 02:00 02:16 02:30 Temperature Pulse Rate 86 89 81 Pulse Rate [ From Monitor] Respiratory 27 H 19 31 H Rate Blood Pressure 104/65 111/66 111/66 O2 Sat by Pulse 93 93 99 Oximetry 04/02/17 04/02/17 04/02/17 02:46 03:00 03:16 Temperature Pulse Rate 82 85 84 Pulse Rate [ From Monitor] Respiratory 26 H 32 H Rate Blood Pressure 111/66 102/67 102/67 O2 Sat by Pulse 95 97 Oximetry 04/02/17 04/02/17 04/02/17 03:30 03:38 03:46 Temperature 99.5 F Pulse Rate 92 H 91 H Pulse Rate [ From Monitor] Respiratory 31 H 13 Rate Blood Pressure 102/67 102/67 O2 Sat by Pulse 100 93 Oximetry 04/02/17 04/02/17 04/02/17 04:00 04:16 04:30 Temperature Pulse Rate 79 80 80 Pulse Rate [ 80 From Monitor] Respiratory 25 H 26 H 26 H Rate Blood Pressure 106/62 106/62 106/62 O2 Sat by Pulse 96 98 98 Oximetry 04/02/17 04/02/17 04/02/17 04:46 04:50 05:00 Temperature Pulse Rate 82 80 81 Pulse Rate [ From Monitor] Respiratory 26 H 24 Rate Blood Pressure 106/62 106/62 103/63 O2 Sat by Pulse 99 98 99 Oximetry 04/02/17 04/02/17 04/02/17 05:16 05:30 05:46 Temperature Pulse Rate 81 81 81 Pulse Rate [ From Monitor] Respiratory 24 25 H 24 Rate Blood Pressure 103/63 103/63 103/63 O2 Sat by Pulse 98 98 99 Oximetry 04/02/17 04/02/17 04/02/17 06:00 06:16 06:30 Temperature Pulse Rate 80 82 82 Pulse Rate [ From Monitor] Respiratory 24 26 H 29 H Rate Blood Pressure 106/62 106/62 106/62 O2 Sat by Pulse 99 98 99 Oximetry 04/02/17 04/02/17 04/02/17 06:43 08:24 08:37 Temperature Pulse Rate 80 87 85 Pulse Rate [ From Monitor] Respiratory 26 H Rate Blood Pressure 106/62 110/69 110/69 O2 Sat by Pulse 96 98 Oximetry 04/02/17 04/02/17 04/02/17 09:03 10:14 10:17 Temperature 99.6 F Pulse Rate 79 79 Pulse Rate [ From Monitor] Respiratory Rate Blood Pressure 109/61 109/61 O2 Sat by Pulse Oximetry 04/02/17 10:22 Temperature Pulse Rate 78 Pulse Rate [ From Monitor] Respiratory 19 Rate Blood Pressure 109/61 O2 Sat by Pulse 99 Oximetry Constitutional: comatose Eyes: injected ENT: other (orally intubated, not currently on sedation) Neck: supple, other (large in circumference) Effort: normal Ascultation: Bilateral: diminished breath sounds (but clear) Percussion: Bilateral: not dull Cardiovascular: other (tachycardia) Gastrointestinal: hypoactive bowel sounds, other (mild distention) Integumentary: other (multiple tattoos) Extremities: no cyanosis Neurologic: unable to assess CBC and BMP: 03/31/17 05:30 03/31/17 09:22 ABG, PT/INR, D-dimer: ABG POC ABG pH 7.534 (7.35-7.45) H 04/02/17 10:41 POC ABG pCO2 27.4 (35-45) L 04/02/17 10:41 POC ABG pO2 95 (80-105) 04/02/17 10:41 POC ABG HCO3 23.1 04/02/17 10:41 POC ABG Total CO2 24 04/02/17 10:41 POC ABG O2 Sat 98 04/02/17 10:41 PT/INR, D-dimer PT 15.8 Sec. (12.2-14.9) H 03/29/17 11:35 INR 1.20 (0.87-1.13) H 03/29/17 11:35 Abnormal lab findings: Abnormal Labs 03/29/17 03/29/17 03/29/17 11:35 11:35 11:40 WBC MCV 98 H MCH 33 H Lymphocytes % (Manual) Monocytes % (Manual) 9.0 H Nucleated RBC % 1.0 H Seg Neutrophils # Man Monocytes # (Manual) 0.9 H PT 15.8 H INR 1.20 H Activated Clotting Time POC ABG pH POC ABG pCO2 POC ABG pO2 Potassium 2.7 L* Chloride 95.3 L Carbon Dioxide 17 L BUN Creatinine Glucose 435 H POC Glucose Calcium Total Creatine Kinase CK-MB (CK-2) CK-MB (CK-2) Rel Index Troponin T C-Reactive Protein Total Protein 6.1 L Albumin 3.5 L Triglycerides Ur Specific [place] 03/29/17 03/29/17 03/29/17 12:34 13:10 13:25 WBC MCV MCH Lymphocytes % (Manual) Monocytes % (Manual) Nucleated RBC % Seg Neutrophils # Man Monocytes # (Manual) PT INR Activated Clotting Time 142 H 169 H 175 H POC ABG pH POC ABG pCO2 POC ABG pO2 Potassium Chloride Carbon Dioxide BUN Creatinine Glucose POC Glucose Calcium Total Creatine Kinase CK-MB (CK-2) CK-MB (CK-2) Rel Index Troponin T C-Reactive Protein Total Protein Albumin Triglycerides Ur Specific [place] 03/29/17 03/29/17 03/29/17 14:50 15:18 19:52 WBC MCV MCH Lymphocytes % (Manual) Monocytes % (Manual) Nucleated RBC % Seg Neutrophils # Man Monocytes # (Manual) PT INR Activated Clotting Time 175 H POC ABG pH 7.293 L POC ABG pCO2 POC ABG pO2 602 H Potassium Chloride Carbon Dioxide BUN Creatinine Glucose POC Glucose Calcium Total Creatine Kinase 7263 H CK-MB (CK-2) > 300.0 H CK-MB (CK-2) Rel Index 4.1 H Troponin T 8.080 H* D C-Reactive Protein Total Protein Albumin Triglycerides 195 H Ur Specific [place] 03/30/17 03/30/17 03/30/17 03:50 03:50 06:19 WBC 19.5 H MCV MCH Lymphocytes % (Manual) 7.0 L Monocytes % (Manual) Nucleated RBC % Seg Neutrophils # Man 12.7 H Monocytes # (Manual) 1.4 H PT INR Activated Clotting Time POC ABG pH POC ABG pCO2 28.2 L POC ABG pO2 108 H Potassium Chloride 108.9 H Carbon Dioxide 15 L BUN 25 H Creatinine Glucose 158 H POC Glucose Calcium 8.1 L Total Creatine Kinase 7963 H CK-MB (CK-2) > 300.0 H CK-MB (CK-2) Rel Index Troponin T 6.850 H* C-Reactive Protein Total Protein Albumin Triglycerides Ur Specific [place] 03/30/17 03/30/17 03/31/17 09:45 16:04 02:19 WBC MCV MCH Lymphocytes % (Manual) Monocytes % (Manual) Nucleated RBC % Seg Neutrophils # Man Monocytes # (Manual) PT INR Activated Clotting Time POC ABG pH POC ABG pCO2 POC ABG pO2 Potassium Chloride Carbon Dioxide BUN Creatinine Glucose POC Glucose 137 H Calcium Total Creatine Kinase CK-MB (CK-2) CK-MB (CK-2) Rel Index Troponin T C-Reactive Protein 21.80 H Total Protein Albumin Triglycerides Ur Specific [place] 1.031 H 03/31/17 03/31/17 03/31/17 03:57 06:54 09:22 WBC MCV MCH Lymphocytes % (Manual) Monocytes % (Manual) Nucleated RBC % Seg Neutrophils # Man Monocytes # (Manual) PT INR Activated Clotting Time POC ABG pH 7.475 H POC ABG pCO2 25.4 L POC ABG pO2 62 L Potassium Chloride Carbon Dioxide 19 L BUN 22 H Creatinine 0.6 L Glucose 148 H POC Glucose 143 H Calcium 8.3 L Total Creatine Kinase CK-MB (CK-2) CK-MB (CK-2) Rel Index Troponin T C-Reactive Protein Total Protein Albumin Triglycerides Ur Specific [place] 03/31/17 03/31/17 03/31/17 11:40 17:47 23:38 WBC MCV MCH Lymphocytes % (Manual) Monocytes % (Manual) Nucleated RBC % Seg Neutrophils # Man Monocytes # (Manual) PT INR Activated Clotting Time POC ABG pH POC ABG pCO2 POC ABG pO2 Potassium Chloride Carbon Dioxide BUN Creatinine Glucose POC Glucose 127 H 137 H 148 H Calcium Total Creatine Kinase CK-MB (CK-2) CK-MB (CK-2) Rel Index Troponin T C-Reactive Protein Total Protein Albumin Triglycerides Ur Specific [place] 04/01/17 04/01/17 04/01/17 04:29 05:01 11:54 WBC MCV MCH Lymphocytes % (Manual) Monocytes % (Manual) Nucleated RBC % Seg Neutrophils # Man Monocytes # (Manual) PT INR Activated Clotting Time POC ABG pH 7.513 H POC ABG pCO2 22.1 L POC ABG pO2 64 L Potassium Chloride Carbon Dioxide BUN Creatinine Glucose POC Glucose 121 H Calcium Total Creatine Kinase CK-MB (CK-2) CK-MB (CK-2) Rel Index Troponin T C-Reactive Protein Total Protein Albumin Triglycerides 151 H Ur Specific [place] 04/01/17 04/02/17 04/02/17 18:17 00:11 04:52 WBC MCV MCH Lymphocytes % (Manual) Monocytes % (Manual) Nucleated RBC % Seg Neutrophils # Man Monocytes # (Manual) PT INR Activated Clotting Time POC ABG pH 7.524 H POC ABG pCO2 25.5 L POC ABG pO2 66 L Potassium Chloride Carbon Dioxide BUN Creatinine Glucose POC Glucose 117 H 122 H Calcium Total Creatine Kinase CK-MB (CK-2) CK-MB (CK-2) Rel Index Troponin T C-Reactive Protein Total Protein Albumin Triglycerides Ur Specific [place] 04/02/17 04/02/17 05:18 10:41 WBC MCV MCH Lymphocytes % (Manual) Monocytes % (Manual) Nucleated RBC % Seg Neutrophils # Man Monocytes # (Manual) PT INR Activated Clotting Time POC ABG pH 7.534 H POC ABG pCO2 27.4 L POC ABG pO2 Potassium Chloride Carbon Dioxide BUN Creatinine Glucose POC Glucose 132 H Calcium Total Creatine Kinase CK-MB (CK-2) CK-MB (CK-2) Rel Index Troponin T C-Reactive Protein Total Protein Albumin Triglycerides Ur Specific [place]
[2017-04-02] MEDS: TYLENOL PO PRN (23:28)
--- NOTE | 2017-04-03 04:07 | XRay Report ---
FINAL REPORT EXAM: XR CHEST 1V AP HISTORY: follow up respiratory failure TECHNIQUE: Single, portable chest x-ray. PRIORS: 31 March 2017. FINDINGS: ET and NG tubes again noted. Cardiac silhouette stable. Lungs show patchy and partially confluent opacities projected over the bilateral lower lungs, right greater than left, mildly increased on the right. No apparent pneumothorax. IMPRESSION: 1. Findings which may represent atelectasis, mild infiltrates or postinflammatory change projected over the bilateral lower lungs mildly increased on the right. Correlate clinically. 2. Otherwise, stable.
[2017-04-03] MEDS: ZOSYN/NS 4.5GM/100ML 4.5 GM/100 ML VIAL IV SCH ×2 (05:49→22:25)
[2017-04-03] MEDS: NITRO-BID 2% TP SCH ×2 (05:50→10:06)
--- NOTE | 2017-04-03 08:05 | XRay Report ---
FINAL REPORT EXAM: XR CHEST 1V AP HISTORY: follow up respiratory failure TECHNIQUE: AP portable view(s) of the chest obtained. PRIORS: 04/01/2017 FINDINGS: Endotracheal tube terminates approximately 6.5 cm from the khurram. Enteric tube courses below the left hemidiaphragm with distal side port at or near the gastroesophageal junction. Patient is rotated. No mediastinal shift. Cardiac silhouette is not enlarged. No pneumothorax or effusion. Ill-defined bibasilar opacities. No acute skeletal finding. IMPRESSION: No pneumothorax or other acute finding compared to 04/01/2017. The patient's enteric tube distal side port is at or near the gastroesophageal junction. Consider advancement of 4-5 cm for more optimal positioning.
[2017-04-03] MEDS ORDERED: VANCOMYCIN 1,750 MG in NACL 0.9% 500 ML 500 ML IV ONE (10:00)
[2017-04-03] MEDS ORDERED: VANCOMYCIN PHARMACY TO DOSE IV SCH (10:00)
[2017-04-03] MEDS: HEPARIN SUB-Q SCH ×2 (10:04→22:18)
[2017-04-03] MEDS: ASPIRIN PR SCH (10:05)
[2017-04-03] MEDS: CORDARONE PO SCH ×2 (10:05→22:17)
[2017-04-03] MEDS: LOPRESSOR PO SCH ×2 (10:06→22:19)
[2017-04-03] MEDS: PLAVIX PO SCH (10:08)
[2017-04-03] MEDS: PROTONIX FEEDTUBE SCH (10:08)
--- NOTE | 2017-04-03 10:13 | Progress Note ---
Assessment and Plan out of hospital Vfib arrest, s/p C with stent placement anoxic encephalopathy. Severe Fever. Sputum culture positive for MRSA. Recommendations Agree with vancomycin Monitor fever Check cultures Neurological status appears not to be improving. Probably poor prognosis at this point is significant lack of neurological response after arrest DVT prophylaxis Discussed with nursing and staff in general. No family available Critical care time with a 31 minutes of [id number] evaluation and coordination of care Subjective Date of service: 04/03/17 Principal diagnosis: septic shock Interval history: Intubated on vent support. Objective Vital Signs - 12hr 04/02/17 04/02/17 04/02/17 22:16 22:30 22:46 Temperature Pulse Rate 84 83 94 H Pulse Rate [ From Monitor] Respiratory 25 H 25 H 21 Rate Blood Pressure 102/57 102/57 102/57 O2 Sat by Pulse 98 98 99 Oximetry 04/02/17 04/02/17 04/02/17 23:00 23:16 23:30 Temperature Pulse Rate 88 90 89 Pulse Rate [ From Monitor] Respiratory 27 H 27 H 17 Rate Blood Pressure 101/65 101/65 101/65 O2 Sat by Pulse 96 95 97 Oximetry 04/02/17 04/02/17 04/03/17 23:46 23:50 00:00 Temperature 102.2 F H Pulse Rate 91 H 85 82 Pulse Rate [ From Monitor] Respiratory 21 23 Rate Blood Pressure 101/65 101/65 110/54 O2 Sat by Pulse 95 95 96 Oximetry 04/03/17 04/03/17 04/03/17 00:16 00:30 00:46 Temperature Pulse Rate 82 96 H 74 Pulse Rate [ From Monitor] Respiratory 26 H 25 H 23 Rate Blood Pressure 110/54 110/54 110/54 O2 Sat by Pulse 97 99 97 Oximetry 04/03/17 04/03/17 04/03/17 01:00 01:16 01:30 Temperature Pulse Rate 73 Pulse Rate [ 72 From Monitor] Respiratory 23 Rate Blood Pressure 101/49 101/49 101/49 O2 Sat by Pulse 100 98 99 Oximetry 04/03/17 04/03/17 04/03/17 01:46 02:00 02:16 Temperature Pulse Rate 83 73 83 Pulse Rate [ From Monitor] Respiratory Rate Blood Pressure 101/49 111/63 111/63 O2 Sat by Pulse 96 97 99 Oximetry 04/03/17 04/03/17 04/03/17 02:30 02:46 03:00 Temperature Pulse Rate 68 69 70 Pulse Rate [ From Monitor] Respiratory Rate Blood Pressure 111/63 111/63 100/59 O2 Sat by Pulse 97 99 100 Oximetry 04/03/17 04/03/17 04/03/17 03:16 03:30 03:46 Temperature Pulse Rate 69 76 69 Pulse Rate [ From Monitor] Respiratory Rate Blood Pressure 100/59 100/59 100/59 O2 Sat by Pulse 100 97 99 Oximetry 04/03/17 04/03/17 04/03/17 04:00 04:16 04:30 Temperature 99.7 F H Pulse Rate 68 70 70 Pulse Rate [ From Monitor] Respiratory Rate Blood Pressure 103/65 103/65 103/65 O2 Sat by Pulse 99 100 100 Oximetry 04/03/17 04/03/17 04/03/17 04:46 05:00 05:04 Temperature Pulse Rate 69 81 81 Pulse Rate [ From Monitor] Respiratory 22 Rate Blood Pressure 103/65 106/67 106/67 O2 Sat by Pulse 100 97 98 Oximetry 04/03/17 04/03/17 04/03/17 05:16 05:30 05:46 Temperature Pulse Rate 79 78 79 Pulse Rate [ From Monitor] Respiratory Rate Blood Pressure 106/67 106/67 106/67 O2 Sat by Pulse 97 97 97 Oximetry 04/03/17 04/03/17 04/03/17 05:50 06:00 06:16 Temperature Pulse Rate 78 78 76 Pulse Rate [ From Monitor] Respiratory Rate Blood Pressure 106/67 110/60 110/60 O2 Sat by Pulse 95 96 Oximetry 04/03/17 04/03/17 04/03/17 06:30 06:46 07:00 Temperature Pulse Rate 81 74 76 Pulse Rate [ From Monitor] Respiratory Rate Blood Pressure 110/60 110/60 102/57 O2 Sat by Pulse 95 96 97 Oximetry 04/03/17 04/03/17 04/03/17 07:16 07:30 07:42 Temperature Pulse Rate 75 77 88 Pulse Rate [ From Monitor] Respiratory 19 Rate Blood Pressure 110/60 110/60 102/57 O2 Sat by Pulse 98 98 95 Oximetry 04/03/17 04/03/17 04/03/17 07:46 08:00 10:06 Temperature 100.8 F H Pulse Rate 83 82 78 Pulse Rate [ From Monitor] Respiratory Rate Blood Pressure 110/60 109/63 103/52 O2 Sat by Pulse 96 95 Oximetry Constitutional: comatose Eyes: injected, other (pinpoint pupils equal and non reactive) ENT: other (orally intubated, off sedation) Neck: supple, no JVD Effort: normal Ascultation: Bilateral: clear, diminished breath sounds ( ) Percussion: Bilateral: not dull Cardiovascular: regular rate and rhythm Gastrointestinal: hypoactive bowel sounds, other (mild distention) Extremities: no cyanosis Neurologic: unable to assess, other (no posturing on physical examination and stimulation) CBC and BMP: 03/31/17 05:30 03/31/17 09:22 ABG, PT/INR, D-dimer: ABG POC ABG pH 7.455 (7.35-7.45) H 04/03/17 05:09 POC ABG pCO2 33.2 (35-45) L 04/03/17 05:09 POC ABG pO2 120 (80-105) H 04/03/17 05:09 POC ABG HCO3 23.3 04/03/17 05:09 POC ABG Total CO2 24 04/03/17 05:09 POC ABG O2 Sat 99 04/03/17 05:09 PT/INR, D-dimer PT 15.8 Sec. (12.2-14.9) H 03/29/17 11:35 INR 1.20 (0.87-1.13) H 03/29/17 11:35 Abnormal lab findings: Abnormal Labs 03/29/17 03/29/17 03/29/17 11:35 11:35 11:40 WBC MCV 98 H MCH 33 H Lymphocytes % (Manual) Monocytes % (Manual) 9.0 H Nucleated RBC % 1.0 H Seg Neutrophils # Man Monocytes # (Manual) 0.9 H PT 15.8 H INR 1.20 H Activated Clotting Time POC ABG pH POC ABG pCO2 POC ABG pO2 Potassium 2.7 L* Chloride 95.3 L Carbon Dioxide 17 L BUN Creatinine Glucose 435 H POC Glucose Calcium Total Creatine Kinase CK-MB (CK-2) CK-MB (CK-2) Rel Index Troponin T C-Reactive Protein Total Protein 6.1 L Albumin 3.5 L Triglycerides Ur Specific [place] 03/29/17 03/29/17 03/29/17 12:34 13:10 13:25 WBC MCV MCH Lymphocytes % (Manual) Monocytes % (Manual) Nucleated RBC % Seg Neutrophils # Man Monocytes # (Manual) PT INR Activated Clotting Time 142 H 169 H 175 H POC ABG pH POC ABG pCO2 POC ABG pO2 Potassium Chloride Carbon Dioxide BUN Creatinine Glucose POC Glucose Calcium Total Creatine Kinase CK-MB (CK-2) CK-MB (CK-2) Rel Index Troponin T C-Reactive Protein Total Protein Albumin Triglycerides Ur Specific [place] 03/29/17 03/29/17 03/29/17 14:50 15:18 19:52 WBC MCV MCH Lymphocytes % (Manual) Monocytes % (Manual) Nucleated RBC % Seg Neutrophils # Man Monocytes # (Manual) PT INR Activated Clotting Time 175 H POC ABG pH 7.293 L POC ABG pCO2 POC ABG pO2 602 H Potassium Chloride Carbon Dioxide BUN Creatinine Glucose POC Glucose Calcium Total Creatine Kinase 7263 H CK-MB (CK-2) > 300.0 H CK-MB (CK-2) Rel Index 4.1 H Troponin T 8.080 H* D C-Reactive Protein Total Protein Albumin Triglycerides 195 H Ur Specific [place] 03/30/17 03/30/17 03/30/17 03:50 03:50 06:19 WBC 19.5 H MCV MCH Lymphocytes % (Manual) 7.0 L Monocytes % (Manual) Nucleated RBC % Seg Neutrophils # Man 12.7 H Monocytes # (Manual) 1.4 H PT INR Activated Clotting Time POC ABG pH POC ABG pCO2 28.2 L POC ABG pO2 108 H Potassium Chloride 108.9 H Carbon Dioxide 15 L BUN 25 H Creatinine Glucose 158 H POC Glucose Calcium 8.1 L Total Creatine Kinase 7963 H CK-MB (CK-2) > 300.0 H CK-MB (CK-2) Rel Index Troponin T 6.850 H* C-Reactive Protein Total Protein Albumin Triglycerides Ur Specific [place] 03/30/17 03/30/17 03/31/17 09:45 16:04 02:19 WBC MCV MCH Lymphocytes % (Manual) Monocytes % (Manual) Nucleated RBC % Seg Neutrophils # Man Monocytes # (Manual) PT INR Activated Clotting Time POC ABG pH POC ABG pCO2 POC ABG pO2 Potassium Chloride Carbon Dioxide BUN Creatinine Glucose POC Glucose 137 H Calcium Total Creatine Kinase CK-MB (CK-2) CK-MB (CK-2) Rel Index Troponin T C-Reactive Protein 21.80 H Total Protein Albumin Triglycerides Ur Specific [place] 1.031 H 03/31/17 03/31/17 03/31/17 03:57 06:54 09:22 WBC MCV MCH Lymphocytes % (Manual) Monocytes % (Manual) Nucleated RBC % Seg Neutrophils # Man Monocytes # (Manual) PT INR Activated Clotting Time POC ABG pH 7.475 H POC ABG pCO2 25.4 L POC ABG pO2 62 L Potassium Chloride Carbon Dioxide 19 L BUN 22 H Creatinine 0.6 L Glucose 148 H POC Glucose 143 H Calcium 8.3 L Total Creatine Kinase CK-MB (CK-2) CK-MB (CK-2) Rel Index Troponin T C-Reactive Protein Total Protein Albumin Triglycerides Ur Specific [place] 03/31/17 03/31/17 03/31/17 11:40 17:47 23:38 WBC MCV MCH Lymphocytes % (Manual) Monocytes % (Manual) Nucleated RBC % Seg Neutrophils # Man Monocytes # (Manual) PT INR Activated Clotting Time POC ABG pH POC ABG pCO2 POC ABG pO2 Potassium Chloride Carbon Dioxide BUN Creatinine Glucose POC Glucose 127 H 137 H 148 H Calcium Total Creatine Kinase CK-MB (CK-2) CK-MB (CK-2) Rel Index Troponin T C-Reactive Protein Total Protein Albumin Triglycerides Ur Specific [place] 04/01/17 04/01/17 04/01/17 04:29 05:01 11:54 WBC MCV MCH Lymphocytes % (Manual) Monocytes % (Manual) Nucleated RBC % Seg Neutrophils # Man Monocytes # (Manual) PT INR Activated Clotting Time POC ABG pH 7.513 H POC ABG pCO2 22.1 L POC ABG pO2 64 L Potassium Chloride Carbon Dioxide BUN Creatinine Glucose POC Glucose 121 H Calcium Total Creatine Kinase CK-MB (CK-2) CK-MB (CK-2) Rel Index Troponin T C-Reactive Protein Total Protein Albumin Triglycerides 151 H Ur Specific [place] 04/01/17 04/02/17 04/02/17 18:17 00:11 04:52 WBC MCV MCH Lymphocytes % (Manual) Monocytes % (Manual) Nucleated RBC % Seg Neutrophils # Man Monocytes # (Manual) PT INR Activated Clotting Time POC ABG pH 7.524 H POC ABG pCO2 25.5 L POC ABG pO2 66 L Potassium Chloride Carbon Dioxide BUN Creatinine Glucose POC Glucose 117 H 122 H Calcium Total Creatine Kinase CK-MB (CK-2) CK-MB (CK-2) Rel Index Troponin T C-Reactive Protein Total Protein Albumin Triglycerides Ur Specific [place] 04/02/17 04/02/17 04/02/17 05:18 10:41 12:19 WBC MCV MCH Lymphocytes % (Manual) Monocytes % (Manual) Nucleated RBC % Seg Neutrophils # Man Monocytes # (Manual) PT INR Activated Clotting Time POC ABG pH 7.534 H POC ABG pCO2 27.4 L POC ABG pO2 Potassium Chloride Carbon Dioxide BUN Creatinine Glucose POC Glucose 132 H 129 H Calcium Total Creatine Kinase CK-MB (CK-2) CK-MB (CK-2) Rel Index Troponin T C-Reactive Protein Total Protein Albumin Triglycerides Ur Specific [place] 04/02/17 04/03/17 04/03/17 18:05 00:08 05:09 WBC MCV MCH Lymphocytes % (Manual) Monocytes % (Manual) Nucleated RBC % Seg Neutrophils # Man Monocytes # (Manual) PT INR Activated Clotting Time POC ABG pH 7.455 H POC ABG pCO2 33.2 L POC ABG pO2 120 H Potassium Chloride Carbon Dioxide BUN Creatinine Glucose POC Glucose 136 H 128 H Calcium Total Creatine Kinase CK-MB (CK-2) CK-MB (CK-2) Rel Index Troponin T C-Reactive Protein Total Protein Albumin Triglycerides Ur Specific [place] 04/03/17 06:32 WBC MCV MCH Lymphocytes % (Manual) Monocytes % (Manual) Nucleated RBC % Seg Neutrophils # Man Monocytes # (Manual) PT INR Activated Clotting Time POC ABG pH POC ABG pCO2 POC ABG pO2 Potassium Chloride Carbon Dioxide BUN Creatinine Glucose POC Glucose 138 H Calcium Total Creatine Kinase CK-MB (CK-2) CK-MB (CK-2) Rel Index Troponin T C-Reactive Protein Total Protein Albumin Triglycerides Ur Specific [place] Chest x-ray: report reviewed, image reviewed
--- NOTE | 2017-04-03 11:26 | Progress Note ---
Assessment and Plan Assessment: 1) S/P VT cardiac arrest due to STEMI: 100% LAD occlusion s/p angioplasty and stent 2) Sepsis: still fever and leukocytosis. Etiology likely MRSA pneumonia? central ? pansinusitis. CRP=21 3) Encephalopathy: likely severe anoxic injury. CT head unremarkable 4) Presumed aspiration pneumonia: MRSA 5) Amph abuse ? 6) Extensive pansinusitis Plan: -started back on vancomycin today -contact isolation -f/u blood cultures -f/u repeat respiratory cultures -continue zosyn day [address] Garay for your consultation, will follow up with you. Alla Arana MD Infectious Diseases Specialist [facility] ([facility]) M [phone] O [phone] Subjective Date of service: 04/03/17 Principal diagnosis: septic shock Interval history: Remains critically ill, febrile, intubated on sedative. Tmax 102. off pressors. Microbiology: Urine culture: 03/30 neg Blood cultures: 03/31 ngtd Tracheal asp 03/31 MRSA Current Antimicrobials: Zosyn 03/30 Vancomycin 04/03 Previous Antimicrobials: Objective - Exam Narrative Exam: General appearance: sedated intubated Eyes: icteric sclerae, edematous conjunctivae; no lid-lag; PERRLA HENT: Atraumatic; oropharynx +ETT +NGT Neck: Trachea midline; supple, no thyromegaly or lymphadenopathy Lungs: CTA valeria CV: RRR, no murmurs Abdomen: Soft, non-tender Extremities: valeria edema Skin: Normal temperature, turgor and texture; no rash, ulcers or subcutaneous nodules Psych: sedated. Neuro: sedated Lines: No CVL / PICC - Constitutional Vitals: Vital Signs Temp Pulse Resp BP Pulse Ox 100.8 F H 96 H 24 111/57 96 04/03/17 08:00 04/03/17 11:14 04/03/17 11:14 04/03/17 11:14 04/03/17 11:14 Temperature -Last 24 Hours Temperature 100.8 F Temperature 99.7 F Temperature 102.2 F Temperature 99.4 F Temperature 100 F - Labs CBC & Chem 7: 03/31/17 05:30 03/31/17 09:22 Labs: Abnormal lab results 04/02/17 04/02/17 04/03/17 Range/Units 12:19 18:05 00:08 POC ABG pH (7.35-7.45) POC ABG pCO2 (35-45) POC ABG pO2 (80-105) POC Glucose 129 H 136 H 128 H (70-105) 04/03/17 04/03/17 Range/Units 05:09 06:32 POC ABG pH 7.455 H (7.35-7.45) POC ABG pCO2 33.2 L (35-45) POC ABG pO2 120 H (80-105) POC Glucose 138 H (70-105)
[2017-04-03 12:54] LABS: Basophils # (Auto) 0.1 K/mm3 (0.0-0.1); Basophils % (Auto) 0.5 % (0.0-1.8); Eosinophils # (Auto) 0.2 K/mm3 (0.0-0.4); Eosinophils % (Auto) 1.7 % (0.0-4.3); Hematocrit 35.7 % (35.5-45.6); Hemoglobin 12.1 gm/dl (11.8-15.2); Lymphocytes # (Auto) 0.6 K/mm3 (1.2-5.4); Lymphocytes % (Auto) 4.8 % (13.4-35.0); Mean Corpuscular HGB Conc 34 % (32-34); Mean Corpuscular Hemoglobin 32 pg (28-32); Mean Corpuscular Volume 94 fl (84-94); Monocytes # (Auto) 0.7 K/mm3 (0.0-0.8); Monocytes % (Auto) 6.3 % (0.0-7.3); Platelet Count 125 K/mm3 (140-440); Red Blood Count 3.82 M/mm3 (3.65-5.03); Red Cell Distribution Width 14.4 % (13.2-15.2)
--- NOTE | 2017-04-03 15:56 | Progress Note ---
Assessment and Plan Assessment and plan: 46 YO Male with No PMH presents to ED for evaluation. Pt is unresponsive and unable to provide history. Pt history taken from ED staff and EMS. Pt was at work today and suddenly passed out around 1050 hrs-which was witnessed by patients coworkers. EMS notified, and upon arrival the patient was found to have V Fib. Pt treated IAW ACLS protocol. The patient was given 3 defibrillations, 2 rounds of epinephrine, Narcan, and a half amp of sodium bicarbonate. Pt found to be in respiratory distress and was intubated and placed on vent support. Cardiology team notified, and patient was taken urgently to cath lab radiological technologist, and admitted to ICU. Acute Respiratory failure requiring MV >96 hours Pt intubated, Placed on vent support, Pulmonary consulted, Wean vent as tolerated, daily SBT, Daily sedation holiday, Anterior STEMI sp cardiac arrest case dw cardiology Emergency cath protocol called upon arrival, we found 100% occlusion of the LAD in its prox-mid segment. Successful primari PCI-angioplasty and 3.0-3.5mm BM stents deployed. LAD flow restored-excellent result. Heparin drip was discontinued per cardiology, optimize meds Aspiration PNA due to MRSA/Sepsis case ID contact isolation rx with vancomycin Shock -Likely cardiogenic and possibly also septic shock Currently off pressors, has been weaned Sepsis/Right lower lobe aspiration pneumonia, most likely due to gram-positive bacteria -Started on Zosyn and Vanco, obtain sputum cultures, obtain UA and urine culture Case discussed with infectious disease Hypokalemia Now resolved anoxic brain injury/anoxic encephalopathy Most likely anoxic brain injury, patient has been off sedation and still obtunded and nonresponsive. He likely had aprolonged period of time without perfusion to his brain. We will continue to monitor his mental status, -His prognosis is grim with very little chance of recovery, this has been conveyed to the family. We would recommend hospice and withdrawal of life supports versus trach and SNIF placement. This was dw family, Critical care physician and neurologist also conveyed the same information to the family unable to go to [facility] as has no insurance -medicare disability application in process of being filled out by family -recommend hospice at this point -case angela Neurologist, Dr Bradley The high probability of a clinically significant, sudden or life threatening deterioration of the [Pulmonary, cardiac, renal] system(s) required my full and direct attention, intervention and personal management. The aggregate critical care time was [65] minutes. This time is in addition to time spent performing reported procedures but includes the following: [x] Data Review and interpretation [x] Patient assessment and monitoring of vital signs [x] Documentation [x] Medication orders and management History Interval history: Patient is nonresponsive, lacks most reflexes, had fever, no vomiting, no agitation Hospitalist Physical - Physical exam Narrative exam: General.: Comatose HEENT: Moist mucous membranes, no LAD, Neck: supple Cardiac: S1-S2 heard Lungs: clear to auscultation bilaterally Abdomen: soft , nontender, nondistended, bowel sounds positive Extremities: no edema clubbing or cyanosis Skin: no rash or lesions Neurologic: Patient is in deep coma, lacks most reflexes, at this time, only has gag reflexs, corneal reflex and decerebrate posturing, pupils are fixed and non reactive, lacks all other reflexes, opens eyes spontaneously - Constitutional Vitals: Temp Pulse Resp BP Pulse Ox 100.5 F H 96 H 24 111/57 96 04/03/17 12:00 04/03/17 11:14 04/03/17 11:14 04/03/17 11:14 04/03/17 11:14 General appearance: Present: severe distress Results - Labs CBC & Chem 7: 04/03/17 12:16 03/31/17 09:22 Labs: Laboratory Last Values WBC 11.9 K/mm3 (4.5-11.0) H 04/03/17 12:16 RBC 3.82 M/mm3 (3.65-5.03) 04/03/17 12:16 Hgb 12.1 gm/dl (11.8-15.2) 04/03/17 12:16 Hct 35.7 % (35.5-45.6) 04/03/17 12:16 MCV 94 fl (84-94) 04/03/17 12:16 MCH 32 pg (28-32) 04/03/17 12:16 MCHC 34 % (32-34) 04/03/17 12:16 RDW 14.4 % (13.2-15.2) 04/03/17 12:16 Plt Count 125 K/mm3 (140-440) L 04/03/17 12:16 Lymph % (Auto) 4.8 % (13.4-35.0) L 04/03/17 12:16 [place] % (Auto) 6.3 % (0.0-7.3) 04/03/17 12:16 Eos % (Auto) 1.7 % (0.0-4.3) 04/03/17 12:16 Baso % (Auto) 0.5 % (0.0-1.8) 04/03/17 12:16 Lymph # 0.6 K/mm3 (1.2-5.4) L 04/03/17 12:16 [place] # 0.7 K/mm3 (0.0-0.8) 04/03/17 12:16 Eos # 0.2 K/mm3 (0.0-0.4) 04/03/17 12:16 Baso # 0.1 K/mm3 (0.0-0.1) 04/03/17 12:16 Add Manual Diff Complete 03/30/17 03:50 Total Counted 100 03/30/17 03:50 Seg Neutrophils % 86.7 % (40.0-70.0) H 04/03/17 12:16 Seg Neuts % (Manual) 65.0 % (40.0-70.0) 03/30/17 03:50 Band Neutrophils % 17.0 % 03/30/17 03:50 Lymphocytes % (Manual) 7.0 % (13.4-35.0) L 03/30/17 03:50 Reactive Lymphs % (Man) 0 % 03/30/17 03:50 Monocytes % (Manual) 7.0 % (0.0-7.3) 03/30/17 03:50 Eosinophils % (Manual) 0 % (0.0-4.3) 03/30/17 03:50 Basophils % (Manual) 0 % (0.0-1.8) 03/30/17 03:50 Metamyelocytes % 4.0 % 03/30/17 03:50 Myelocytes % 0 % 03/30/17 03:50 Promyelocytes % 0 % 03/30/17 03:50 Blast Cells % 0 % 03/30/17 03:50 Nucleated RBC % Not Reportable 03/30/17 03:50 Seg Neutrophils # 10.3 K/mm3 (1.8-7.7) H 04/03/17 12:16 Seg Neutrophils # Man 12.7 K/mm3 (1.8-7.7) H 03/30/17 03:50 Band Neutrophils # 3.3 K/mm3 03/30/17 03:50 Lymphocytes # (Manual) 1.4 K/mm3 (1.2-5.4) 03/30/17 03:50 Abs React Lymphs (Man) 0.0 K/mm3 03/30/17 03:50 Monocytes # (Manual) 1.4 K/mm3 (0.0-0.8) H 03/30/17 03:50 Eosinophils # (Manual) 0.0 K/mm3 (0.0-0.4) 03/30/17 03:50 Basophils # (Manual) 0.0 K/mm3 (0.0-0.1) 03/30/17 03:50 Metamyelocytes # 0.8 K/mm3 03/30/17 03:50 Myelocytes # 0.0 K/mm3 03/30/17 03:50 Promyelocytes # 0.0 K/mm3 03/30/17 03:50 Blast Cells # 0.0 K/mm3 03/30/17 03:50 WBC Morphology Not Reportable 03/30/17 03:50 Hypersegmented Neuts Not Reportable 03/30/17 03:50 Hyposegmented Neuts Not Reportable 03/30/17 03:50 Hypogranular Neuts Not Reportable 03/30/17 03:50 Smudge Cells Not Reportable 03/30/17 03:50 Toxic Granulation Not Reportable 03/30/17 03:50 Toxic Vacuolation Not Reportable 03/30/17 03:50 Dohle Bodies Not Reportable 03/30/17 03:50 Pelger-Huet Anomaly Not Reportable 03/30/17 03:50 Sherry Rods Not Reportable 03/30/17 03:50 Platelet Estimate Appears normal 03/30/17 03:50 Clumped Platelets Not Reportable 03/30/17 03:50 Plt Clumps, EDTA Not Reportable 03/30/17 03:50 Large Platelets Not Reportable 03/30/17 03:50 Giant Platelets Not Reportable 03/30/17 03:50 Platelet Satelliting Not Reportable 03/30/17 03:50 Plt Morphology Comment Not Reportable 03/30/17 03:50 RBC Morphology Not Reportable 03/30/17 03:50 Dimorphic RBCs Not Reportable 03/30/17 03:50 Polychromasia Not Reportable 03/30/17 03:50 Hypochromasia Not Reportable 03/30/17 03:50 Poikilocytosis Not Reportable 03/30/17 03:50 Anisocytosis Few 03/30/17 03:50 Microcytosis Not Reportable 03/30/17 03:50 Macrocytosis Not Reportable 03/30/17 03:50 Spherocytes Not Reportable 03/30/17 03:50 Pappenheimer Bodies Not Reportable 03/30/17 03:50 Sickle Cells Not Reportable 03/30/17 03:50 Target Cells Not Reportable 03/30/17 03:50 Tear Drop Cells Not Reportable 03/30/17 03:50 Ovalocytes Not Reportable 03/30/17 03:50 Helmet Cells Not Reportable 03/30/17 03:50 [place] Bodies Not Reportable 03/30/17 03:50 [place] Rings Not Reportable 03/30/17 03:50 [place] Cells Not Reportable 03/30/17 03:50 Bite Cells Not Reportable 03/30/17 03:50 Crenated Cell Not Reportable 03/30/17 03:50 Elliptocytes Not Reportable 03/30/17 03:50 Acanthocytes (Spur) Not Reportable 03/30/17 03:50 [place]leaux Not Reportable 03/30/17 03:50 Hemoglobin C Crystals Not Reportable 03/30/17 03:50 Schistocytes Not Reportable 03/30/17 03:50 Malaria parasites Not Reportable 03/30/17 03:50 [place] Bodies Not Reportable 03/30/17 03:50 Hem Pathologist Commnt No 03/30/17 03:50 PT 15.8 Sec. (12.2-14.9) H 03/29/17 11:35 INR 1.20 (0.87-1.13) H 03/29/17 11:35 APTT 34.8 Sec. (24.2-36.6) 03/29/17 11:35 Activated Clotting Time 92 (74-137) 03/29/17 17:47 POC ABG pH 7.455 (7.35-7.45) H 04/03/17 05:09 POC ABG pCO2 33.2 (35-45) L 04/03/17 05:09 POC ABG pO2 120 (80-105) H 04/03/17 05:09 POC ABG HCO3 23.3 04/03/17 05:09 POC ABG Total CO2 24 04/03/17 05:09 POC ABG O2 Sat 99 04/03/17 05:09 POC ABG Base Excess -1 04/03/17 05:09 FiO2 45 % 04/03/17 05:09 Sodium 144 mmol/L (137-145) 03/31/17 09:22 Potassium 3.6 mmol/L (3.6-5.0) 03/31/17 09:22 Chloride 106.5 mmol/L (98-107) 03/31/17 09:22 Carbon Dioxide 19 mmol/L (22-30) L 03/31/17 09:22 Anion Gap 22 mmol/L 03/31/17 09:22 BUN 22 mg/dL (9-20) H 03/31/17 09:22 Creatinine 0.6 mg/dL (0.8-1.5) L 03/31/17 09:22 Estimated GFR > 60 ml/min 03/31/17 09:22 BUN/Creatinine Ratio 37 % 03/31/17 09:22 Glucose 148 mg/dL (75-100) H 03/31/17 09:22 POC Glucose 143 (70-105) H 04/03/17 11:54 Calcium 8.3 mg/dL (8.4-10.2) L 03/31/17 09:22 Total Bilirubin 0.50 mg/dL (0.1-1.2) 03/29/17 11:35 AST 32 units/L (5-40) 03/29/17 11:35 ALT 25 units/L (7-56) 03/29/17 11:35 Alkaline Phosphatase 112 units/L (35-129) 03/29/17 11:35 Total Creatine Kinase 7963 units/L (55-170) H 03/30/17 03:50 CK-MB (CK-2) > 300.0 ng/mL (0.0-4.0) H 03/30/17 03:50 CK-MB (CK-2) Rel Index 3.7 (0-4) 03/30/17 03:50 Troponin T 6.850 ng/mL (0.00-0.029) H* 03/30/17 03:50 C-Reactive Protein 21.80 mg/dL (0.00-1.30) H 03/30/17 16:04 Total Protein 6.1 g/dL (6.3-8.2) L 03/29/17 11:35 Albumin 3.5 g/dL (3.9-5) L 03/29/17 11:35 Albumin/Globulin Ratio 1.3 % 03/29/17 11:35 Triglycerides 151 mg/dL (2-149) H 04/01/17 04:29 Cholesterol 164 mg/dL (50-199) 03/29/17 19:52 LDL Cholesterol Direct 81 mg/dL (50-130) 03/29/17 19:52 HDL Cholesterol 44 mg/dL (40-59) 03/29/17 19:52 Cholesterol/HDL Ratio 3.72 % 03/29/17 19:52 Urine Color Yellow (Yellow) 03/30/17 09:45 Urine Turbidity Turbid (Clear) 03/30/17 09:45 Urine pH 5.0 (5.0-7.0) 03/30/17 09:45 Ur Specific [place] 1.031 (1.003-1.030) H 03/30/17 09:45 Urine Protein 30 mg/dl mg/dL (Negative) 03/30/17 09:45 Urine Glucose (UA) Neg mg/dL (Negative) 03/30/17 09:45 Urine Ketones 20 mg/dL (Negative) 03/30/17 09:45 Urine Blood Mod (Negative) 03/30/17 09:45 Urine Nitrite Neg (Negative) 03/30/17 09:45 Urine Bilirubin Neg (Negative) 03/30/17 09:45 Urine Urobilinogen < 2.0 mg/dL (<2.0) 03/30/17 09:45 Ur Leukocyte Esterase Tr (Negative) 03/30/17 09:45 Urine WBC (Auto) 1.0 /HPF (0.0-6.0) 03/30/17 09:45 Urine RBC (Auto) 14.0 /HPF (0.0-6.0) 03/30/17 09:45 Amorphous Crystals 1+ 03/30/17 09:45 Urine Opiates Screen Presumptive negative 03/30/17 09:45 Urine Methadone Screen Presumptive negative 03/30/17 09:45 Ur Barbiturates Screen Presumptive negative 03/30/17 09:45 Ur Phencyclidine Scrn Presumptive negative 03/30/17 09:45 Ur Amphetamines Screen Presumptive positive 03/30/17 09:45 U Benzodiazepines Scrn Presumptive positive 03/30/17 09:45 Urine Cocaine Screen Presumptive negative 03/30/17 09:45 U Marijuana (THC) Screen Presumptive negative 03/30/17 09:45 Drugs of Abuse Note Disclamer 03/30/17 09:45 Blood Type O POSITIVE 03/29/17 11:35 Antibody Screen Negative 03/29/17 11:35
--- NOTE | 2017-04-03 16:43 | Consultation ---
History of Present Illness Consult date: 04/03/17 History of present illness: spoke to the hospitalist and overall very little progress plan another CT of had on Monday overall limited potential for recovery based on physical description of the arrest.... suspect family will have to be counseled with- Past History Past Medical History: No medical history (Reviewed) Past Surgical History: No surgical history, Other (reviewed.) Social history: single. denies: smoking, alcohol abuse, prescription drug abuse Family history: no significant family history Medications and Allergies Allergies Allergy/AdvReac Type Severity Reaction Status Date / Time No Known Allergies Allergy Unverified 03/29/17 11:35 Home Medications Medication Instructions Recorded Confirmed Last Taken Type No Known Home Medications [No 03/30/17 03/30/17 Unknown History Reported Home Medications] Active Meds: Active Medications Acetaminophen (Tylenol) 1,000 mg PO Q6H PRN PRN Reason: Fever >101 Last Admin: 04/02/17 23:28 Dose: 1,000 mg Albuterol (Proventil) 2.5 mg IH Q3HRT PRN PRN Reason: Shortness Of Breath Amiodarone HCl (Cordarone) 200 mg PO BID [facility] Last Admin: 04/03/17 10:05 Dose: Not Given Lipase/Protease/Amylase (Pancreaze Dr 10,500 Unit) 1 each FEEDTUBE PRN PRN PRN Reason: For Clogged Feeding Tube Aspirin (Aspirin) 300 mg CO QDAY [facility] Last Admin: 04/03/17 10:05 Dose: 300 mg Atorvastatin Calcium (Lipitor) 20 mg PO QHS [facility] Last Admin: 04/02/17 22:20 Dose: 20 mg Clopidogrel Bisulfate (Plavix) 75 mg PO QDAY [facility] Last Admin: 04/03/17 10:08 Dose: 75 mg Dextrose (D50w (25gm) Syringe) 50 ml IV PRN PRN PRN Reason: Hypoglycemia Heparin Sodium (Porcine) (Heparin) 5,000 unit SUB-Q Q12HR [facility] Last Admin: 04/03/17 10:04 Dose: 5,000 unit Hydrophilic Ointment (Vaseline Lip Therapy) 1 applic TP Q2HR PRN PRN Reason: Dry Lips Last Admin: 03/31/17 22:50 Dose: 1 applic Fentanyl Citrate (Fentanyl Drip Premix) 2,000 mcg in 100 mls @ 4.309 mls/hr IV TITR CHETAN; 1 MCG/KG/HR PRN Reason: Protocol Midazolam HCl 100 mg/ Sodium (Chloride) 100 mls @ 2 mls/hr IV TITR CHETAN; 2 MG/HR PRN Reason: Protocol Last Titration: 03/30/17 09:00 Dose: 0 mg/hr, 0 mls/hr Propofol (Diprivan 10 Mg/Ml) 1,000 mg in 100 mls @ 2.585 mls/hr IV TITR CHETAN; 5 MCG/KG/MIN PRN Reason: Protocol Last Titration: 03/30/17 18:20 Dose: 0 mcg/kg/min, 0 mls/hr Norepinephrine (Levophed Drip 4 Mg/Ns 250 Ml) 4 mg in 250 mls @ 7.5 mls/hr IV TITR CHETAN; 2 MCG/MIN PRN Reason: Protocol Last Titration: 03/30/17 09:00 Dose: 10 mcg/min, 37.5 mls/hr Piperacillin Sod/Tazobactam Sod (Zosyn/Ns 4.5gm/100ml) 4.5 gm in 100 mls @ 200 mls/hr IV Q8HR CHETAN PRN Reason: Protocol Last Admin: 04/03/17 05:49 Dose: 200 mls/hr Vancomycin HCl 1,500 mg/ (Sodium Chloride) 515 mls @ 333.333 mls/hr IV Q12HR [facility] Lisinopril (Zestril) 5 mg PO QDAY [facility] Last Admin: 04/02/17 10:17 Dose: Not Given Metoprolol Tartrate (Lopressor) 50 mg PO BID [facility] Last Admin: 04/03/17 10:06 Dose: Not Given Multi-Ingred Cream/Lotion/Oil/Oint (Artificial Tears Ophth Oint) 1 applic OU Q4HR PRN PRN Reason: Dry Eye(s) Last Admin: 03/31/17 22:51 Dose: 1 applic Nitroglycerin (Nitro-Bid 2%) 1 inch TP QIDNTG [facility] PRN Reason: Protocol Last Admin: 04/03/17 10:06 Dose: Not Given Pantoprazole (Protonix) 40 mg FEEDTUBE DAILY [facility] Last Admin: 04/03/17 10:08 Dose: 40 mg Simple Syrup (Simple Syrup) 15 ml FEEDTUBE PRN PRN PRN Reason: Hypoglycemia Simple Syrup (Simple Syrup) 30 ml FEEDTUBE PRN PRN PRN Reason: Hypoglycemia Sodium Bicarbonate (Sodium Bicarbonate) 325 mg FEEDTUBE PRN PRN PRN Reason: For Clogged Feeding Tube Vancomycin HCl (Vancomycin Pharmacy To Dose) 1 each IV PKCONSULT CHETAN Physical Examination - Vital Signs Vital Signs: Vital Signs Pulse Resp Pulse Ox 113 H 28 H 93 03/29/17 11:33 03/29/17 11:33 03/29/17 11:33 Results - Laboratory Findings CBC and BMP: 04/03/17 12:16 03/31/17 09:22 Abnormal Lab Findings: Abnormal Labs 03/29/17 03/29/17 03/29/17 11:35 11:35 11:40 WBC MCV 98 H MCH 33 H Plt Count Lymph % (Auto) Lymph # Seg Neutrophils % Lymphocytes % (Manual) Monocytes % (Manual) 9.0 H Nucleated RBC % 1.0 H Seg Neutrophils # Seg Neutrophils # Man Monocytes # (Manual) 0.9 H PT 15.8 H INR 1.20 H Activated Clotting Time POC ABG pH POC ABG pCO2 POC ABG pO2 Potassium 2.7 L* Chloride 95.3 L Carbon Dioxide 17 L BUN Creatinine Glucose 435 H POC Glucose Calcium Total Creatine Kinase CK-MB (CK-2) CK-MB (CK-2) Rel Index Troponin T C-Reactive Protein Total Protein 6.1 L Albumin 3.5 L Triglycerides Ur Specific [place] 03/29/17 03/29/17 03/29/17 12:34 13:10 13:25 WBC MCV MCH Plt Count Lymph % (Auto) Lymph # Seg Neutrophils % Lymphocytes % (Manual) Monocytes % (Manual) Nucleated RBC % Seg Neutrophils # Seg Neutrophils # Man Monocytes # (Manual) PT INR Activated Clotting Time 142 H 169 H 175 H POC ABG pH POC ABG pCO2 POC ABG pO2 Potassium Chloride Carbon Dioxide BUN Creatinine Glucose POC Glucose Calcium Total Creatine Kinase CK-MB (CK-2) CK-MB (CK-2) Rel Index Troponin T C-Reactive Protein Total Protein Albumin Triglycerides Ur Specific [place] 03/29/17 03/29/17 03/29/17 14:50 15:18 19:52 WBC MCV MCH Plt Count Lymph % (Auto) Lymph # Seg Neutrophils % Lymphocytes % (Manual) Monocytes % (Manual) Nucleated RBC % Seg Neutrophils # Seg Neutrophils # Man Monocytes # (Manual) PT INR Activated Clotting Time 175 H POC ABG pH 7.293 L POC ABG pCO2 POC ABG pO2 602 H Potassium Chloride Carbon Dioxide BUN Creatinine Glucose POC Glucose Calcium Total Creatine Kinase 7263 H CK-MB (CK-2) > 300.0 H CK-MB (CK-2) Rel Index 4.1 H Troponin T 8.080 H* D C-Reactive Protein Total Protein Albumin Triglycerides 195 H Ur Specific [place] 03/30/17 03/30/17 03/30/17 03:50 03:50 06:19 WBC 19.5 H MCV MCH Plt Count Lymph % (Auto) Lymph # Seg Neutrophils % Lymphocytes % (Manual) 7.0 L Monocytes % (Manual) Nucleated RBC % Seg Neutrophils # Seg Neutrophils # Man 12.7 H Monocytes # (Manual) 1.4 H PT INR Activated Clotting Time POC ABG pH POC ABG pCO2 28.2 L POC ABG pO2 108 H Potassium Chloride 108.9 H Carbon Dioxide 15 L BUN 25 H Creatinine Glucose 158 H POC Glucose Calcium 8.1 L Total Creatine Kinase 7963 H CK-MB (CK-2) > 300.0 H CK-MB (CK-2) Rel Index Troponin T 6.850 H* C-Reactive Protein Total Protein Albumin Triglycerides Ur Specific [place] 03/30/17 03/30/17 03/31/17 09:45 16:04 02:19 WBC MCV MCH Plt Count Lymph % (Auto) Lymph # Seg Neutrophils % Lymphocytes % (Manual) Monocytes % (Manual) Nucleated RBC % Seg Neutrophils # Seg Neutrophils # Man Monocytes # (Manual) PT INR Activated Clotting Time POC ABG pH POC ABG pCO2 POC ABG pO2 Potassium Chloride Carbon Dioxide BUN Creatinine Glucose POC Glucose 137 H Calcium Total Creatine Kinase CK-MB (CK-2) CK-MB (CK-2) Rel Index Troponin T C-Reactive Protein 21.80 H Total Protein Albumin Triglycerides Ur Specific [place] 1.031 H 03/31/17 03/31/17 03/31/17 03:57 06:54 09:22 WBC MCV MCH Plt Count Lymph % (Auto) Lymph # Seg Neutrophils % Lymphocytes % (Manual) Monocytes % (Manual) Nucleated RBC % Seg Neutrophils # Seg Neutrophils # Man Monocytes # (Manual) PT INR Activated Clotting Time POC ABG pH 7.475 H POC ABG pCO2 25.4 L POC ABG pO2 62 L Potassium Chloride Carbon Dioxide 19 L BUN 22 H Creatinine 0.6 L Glucose 148 H POC Glucose 143 H Calcium 8.3 L Total Creatine Kinase CK-MB (CK-2) CK-MB (CK-2) Rel Index Troponin T C-Reactive Protein Total Protein Albumin Triglycerides Ur Specific [place] 03/31/17 03/31/17 03/31/17 11:40 17:47 23:38 WBC MCV MCH Plt Count Lymph % (Auto) Lymph # Seg Neutrophils % Lymphocytes % (Manual) Monocytes % (Manual) Nucleated RBC % Seg Neutrophils # Seg Neutrophils # Man Monocytes # (Manual) PT INR Activated Clotting Time POC ABG pH POC ABG pCO2 POC ABG pO2 Potassium Chloride Carbon Dioxide BUN Creatinine Glucose POC Glucose 127 H 137 H 148 H Calcium Total Creatine Kinase CK-MB (CK-2) CK-MB (CK-2) Rel Index Troponin T C-Reactive Protein Total Protein Albumin Triglycerides Ur Specific [place] 04/01/17 04/01/17 04/01/17 04:29 05:01 11:54 WBC MCV MCH Plt Count Lymph % (Auto) Lymph # Seg Neutrophils % Lymphocytes % (Manual) Monocytes % (Manual) Nucleated RBC % Seg Neutrophils # Seg Neutrophils # Man Monocytes # (Manual) PT INR Activated Clotting Time POC ABG pH 7.513 H POC ABG pCO2 22.1 L POC ABG pO2 64 L Potassium Chloride Carbon Dioxide BUN Creatinine Glucose POC Glucose 121 H Calcium Total Creatine Kinase CK-MB (CK-2) CK-MB (CK-2) Rel Index Troponin T C-Reactive Protein Total Protein Albumin Triglycerides 151 H Ur Specific [place] 04/01/17 04/02/17 04/02/17 18:17 00:11 04:52 WBC MCV MCH Plt Count Lymph % (Auto) Lymph # Seg Neutrophils % Lymphocytes % (Manual) Monocytes % (Manual) Nucleated RBC % Seg Neutrophils # Seg Neutrophils # Man Monocytes # (Manual) PT INR Activated Clotting Time POC ABG pH 7.524 H POC ABG pCO2 25.5 L POC ABG pO2 66 L Potassium Chloride Carbon Dioxide BUN Creatinine Glucose POC Glucose 117 H 122 H Calcium Total Creatine Kinase CK-MB (CK-2) CK-MB (CK-2) Rel Index Troponin T C-Reactive Protein Total Protein Albumin Triglycerides Ur Specific [place] 04/02/17 04/02/17 04/02/17 05:18 10:41 12:19 WBC MCV MCH Plt Count Lymph % (Auto) Lymph # Seg Neutrophils % Lymphocytes % (Manual) Monocytes % (Manual) Nucleated RBC % Seg Neutrophils # Seg Neutrophils # Man Monocytes # (Manual) PT INR Activated Clotting Time POC ABG pH 7.534 H POC ABG pCO2 27.4 L POC ABG pO2 Potassium Chloride Carbon Dioxide BUN Creatinine Glucose POC Glucose 132 H 129 H Calcium Total Creatine Kinase CK-MB (CK-2) CK-MB (CK-2) Rel Index Troponin T C-Reactive Protein Total Protein Albumin Triglycerides Ur Specific [place] 04/02/17 04/03/17 04/03/17 18:05 00:08 05:09 WBC MCV MCH Plt Count Lymph % (Auto) Lymph # Seg Neutrophils % Lymphocytes % (Manual) Monocytes % (Manual) Nucleated RBC % Seg Neutrophils # Seg Neutrophils # Man Monocytes # (Manual) PT INR Activated Clotting Time POC ABG pH 7.455 H POC ABG pCO2 33.2 L POC ABG pO2 120 H Potassium Chloride Carbon Dioxide BUN Creatinine Glucose POC Glucose 136 H 128 H Calcium Total Creatine Kinase CK-MB (CK-2) CK-MB (CK-2) Rel Index Troponin T C-Reactive Protein Total Protein Albumin Triglycerides Ur Specific [place] 04/03/17 04/03/17 04/03/17 06:32 11:54 12:16 WBC 11.9 H MCV MCH Plt Count 125 L Lymph % (Auto) 4.8 L Lymph # 0.6 L Seg Neutrophils % 86.7 H Lymphocytes % (Manual) Monocytes % (Manual) Nucleated RBC % Seg Neutrophils # 10.3 H Seg Neutrophils # Man Monocytes # (Manual) PT INR Activated Clotting Time POC ABG pH POC ABG pCO2 POC ABG pO2 Potassium Chloride Carbon Dioxide BUN Creatinine Glucose POC Glucose 138 H 143 H Calcium Total Creatine Kinase CK-MB (CK-2) CK-MB (CK-2) Rel Index Troponin T C-Reactive Protein Total Protein Albumin Triglycerides Ur Specific [place]
--- NOTE | 2017-04-03 20:14 | Progress Note ---
Assessment and Plan - Patient Problems (1) Cardiac arrest Current Visit: Yes Status: Acute Plan to address problem: Out of hospital cardiac arrest which resulted in severe anoxic encephalopathy. (2) STEMI (ST elevation myocardial infarction) Current Visit: Yes Status: Acute Qualifiers: Involved coronary artery: LAD coronary artery Qualified Code(s): I21.02 - ST elevation (STEMI) myocardial infarction involving left anterior descending coronary artery Plan to address problem: ST elevation myocardial infarction was treated with primary angioplasty and stenting of the LAD. Subjective Date of service: 04/03/17 Principal diagnosis: septic shock Interval history: Patient is unresponsive, on the vent. Telemetry shows a normal sinus rhythm at 91, blood pressure 105 systolic. Objective Vital Signs Temp Pulse Pulse Resp BP Pulse Ox 04/03/17 20:04 92 H 27 H 91 04/03/17 19:46 99 H 10 L 109/62 97 04/03/17 19:38 96 H 109/62 94 04/03/17 19:30 94 H 19 109/62 95 04/03/17 19:16 93 H 13 109/62 94 04/03/17 19:00 92 H 15 109/62 95 04/03/17 18:46 97 H 13 99/52 97 04/03/17 18:30 81 26 H 99/52 95 04/03/17 18:16 84 27 H 99/52 94 04/03/17 18:00 81 26 H 99/52 96 04/03/17 17:46 82 26 H 99/52 93 04/03/17 17:30 89 11 L 99/52 98 04/03/17 17:16 83 26 H 99/52 93 04/03/17 17:00 99/52 92 04/03/17 16:46 82 109/59 95 04/03/17 16:30 93 H 109/59 97 04/03/17 16:16 85 109/59 93 04/03/17 16:00 99.6 F 86 109/59 98 04/03/17 15:52 86 28 H 102/53 95 04/03/17 15:46 88 102/53 95 04/03/17 15:30 85 102/53 88 04/03/17 15:16 82 102/53 91 04/03/17 15:00 83 102/53 93 04/03/17 14:46 83 112/59 94 04/03/17 14:30 87 112/59 94 04/03/17 14:16 85 112/59 95 04/03/17 14:15 85 18 04/03/17 14:00 101 H 112/59 90 04/03/17 13:46 97 H 106/62 92 04/03/17 13:30 94 H 106/62 96 04/03/17 13:16 91 H 106/62 95 04/03/17 13:00 92 H 106/62 97 04/03/17 12:46 85 105/55 94 04/03/17 12:30 88 105/55 95 04/03/17 12:16 84 105/55 93 04/03/17 12:00 100.5 F H 87 105/55 93 04/03/17 11:46 91 H 111/57 93 04/03/17 11:30 95 H 111/57 95 04/03/17 11:16 97 H 111/57 96 04/03/17 11:14 96 H 24 111/57 96 04/03/17 11:00 85 111/57 96 04/03/17 10:46 91 H 103/52 95 04/03/17 10:30 94 H 103/52 95 04/03/17 10:16 80 103/52 96 04/03/17 10:06 78 103/52 04/03/17 10:00 79 103/52 96 04/03/17 09:46 77 104/55 98 04/03/17 09:45 76 20 04/03/17 09:30 83 104/55 97 04/03/17 09:16 84 104/55 96 04/03/17 09:00 75 104/55 96 04/03/17 08:46 87 109/63 95 04/03/17 08:30 78 109/63 94 04/03/17 08:16 79 109/63 95 04/03/17 08:00 100.8 F H 82 109/63 95 04/03/17 07:46 83 110/60 96 04/03/17 07:42 88 19 102/57 95 04/03/17 07:30 77 110/60 98 04/03/17 07:16 75 110/60 98 04/03/17 07:00 76 102/57 97 04/03/17 06:46 74 110/60 96 04/03/17 06:30 81 110/60 95 04/03/17 06:16 76 110/60 96 04/03/17 06:00 78 110/60 95 04/03/17 05:50 78 106/67 04/03/17 05:46 79 106/67 97 04/03/17 05:30 78 106/67 97 04/03/17 05:16 79 106/67 97 04/03/17 05:04 81 106/67 98 04/03/17 05:00 81 22 106/67 97 04/03/17 04:46 69 103/65 100 04/03/17 04:30 70 103/65 100 04/03/17 04:16 70 103/65 100 04/03/17 04:00 99.7 F H 68 103/65 99 04/03/17 03:46 69 100/59 99 04/03/17 03:30 76 100/59 97 04/03/17 03:16 69 100/59 100 04/03/17 03:00 70 100/59 100 04/03/17 02:46 69 111/63 99 04/03/17 02:30 68 111/63 97 04/03/17 02:16 83 111/63 99 04/03/17 02:00 73 111/63 97 04/03/17 01:46 83 101/49 96 04/03/17 01:30 101/49 99 04/03/17 01:16 101/49 98 04/03/17 01:00 73 72 23 101/49 100 04/03/17 00:46 74 23 110/54 97 04/03/17 00:30 96 H 25 H 110/54 99 04/03/17 00:16 82 26 H 110/54 97 04/03/17 00:00 102.2 F H 82 23 110/54 96 04/02/17 23:50 85 101/65 95 04/02/17 23:46 91 H 21 101/65 95 04/02/17 23:30 89 17 101/65 97 04/02/17 23:16 90 27 H 101/65 95 04/02/17 23:00 88 27 H 101/65 96 04/02/17 22:46 94 H 21 102/57 99 04/02/17 22:30 83 25 H 102/57 98 04/02/17 22:16 84 25 H 102/57 98 04/02/17 22:00 83 27 H 102/57 98 04/02/17 21:53 84 93/57 04/02/17 21:46 86 24 93/57 95 04/02/17 21:30 83 26 H 93/57 95 04/02/17 21:16 84 26 H 93/57 95 04/02/17 21:00 82 80 22 93/57 97 04/02/17 20:46 89 26 H 93/66 97 04/02/17 20:30 84 26 H 93/66 97 04/02/17 20:18 86 26 H 93/66 98 04/02/17 20:16 89 28 H 93/66 97 - Physical Examination General: Other (unresponsive on the vent) HEENT: Positive: Other (unresponsive, vent) Neck: Positive: neck supple, trachea midline. Negative: JVD/HJR Cardiac: Positive: Reg Rate and Rhythm Lungs: Positive: Decreased Breath Sounds Neuro: Positive: Other (unresponsive post VF arrest) Abdomen: Positive: Soft, Active Bowel Sounds Skin: Positive: Clear Extremities: Absent: edema - Labs and Meds CBC 04/03/17 Range/Units 12:16 WBC 11.9 H (4.5-11.0) K/mm3 RBC 3.82 (3.65-5.03) M/mm3 Hgb 12.1 (11.8-15.2) gm/dl Hct 35.7 (35.5-45.6) % Plt Count 125 L (140-440) K/mm3 Lymph # 0.6 L (1.2-5.4) K/mm3 [place] # 0.7 (0.0-0.8) K/mm3 Eos # 0.2 (0.0-0.4) K/mm3 Baso # 0.1 (0.0-0.1) K/mm3
[2017-04-03] MEDS: VANCOMYCIN 1,500 MG in NACL 0.9% 500 ML 500 ML IV SCH (22:27)
[2017-04-04] MEDS: TYLENOL PO PRN ×2 (02:32→10:50)
--- NOTE | 2017-04-04 02:53 | XRay Report ---
FINAL REPORT EXAM: XR CHEST 1V AP HISTORY: follow up respiratory failure TECHNIQUE: A portable upright view the chest was obtained and compared to the study of 04/03/2017. FINDINGS: The ET tube and NG tube are in proper position. There are patchy infiltrates in the right infrahilar area and right juxtahilar area. The left lung base has clear. The lungs are mildly congested. The heart size is normal. The bones and soft tissues otherwise are unchanged. IMPRESSION: Residual infiltrates in the right juxtahilar area and right lung base. Mild congestion still noted. Satisfactory position of all tubes and lines.
--- NOTE | 2017-04-04 09:28 | Progress Note ---
Assessment and Plan Out of hospital Vfib arrest STEMI Chest x-rays with residual infiltrate, possibly residual vascular congestion s/p LHC with stent placement Anoxic encephalopathy. Severe. Limited chance of meaningful recovery, improvement per last neurology evaluation. Fever. Sputum culture positive for MRSA. Recommendations Continue antibiotics Obtain off sedation and monitor neurological status Follow-up CT scan per neurology Monitor fever Check cultures PPI prophylaxis DVT prophylaxis Planned toadjust respiratory rate to maintain PCO2 of 30,but jacek tolerating PSV/ CPAP trials. If tolerated but no enough recovery to protect airway, will need trach consult Discussed with nursing and staff in general. Critical care time with a 31 minutes of [id number] evaluation and coordination of care Subjective Date of service: 04/04/17 Principal diagnosis: septic shock Interval history: Intubated on vent support. Objective Vital Signs - 12hr 04/03/17 04/03/17 04/03/17 21:31 21:45 22:00 Temperature Pulse Rate 95 H 92 H 87 Respiratory 26 H 27 H 27 H Rate Blood Pressure 106/61 106/61 94/57 O2 Sat by Pulse 93 94 96 Oximetry 04/03/17 04/03/17 04/03/17 22:15 22:19 22:31 Temperature Pulse Rate 91 H 91 H 103 H Respiratory 28 H 18 Rate Blood Pressure 94/57 94/57 94/57 O2 Sat by Pulse 95 97 Oximetry 04/03/17 04/03/17 04/03/17 22:45 23:01 23:15 Temperature Pulse Rate 113 H 119 H 105 H Respiratory 18 30 H 13 Rate Blood Pressure 94/57 104/58 104/58 O2 Sat by Pulse 97 97 97 Oximetry 04/03/17 04/03/17 04/03/17 23:31 23:38 23:40 Temperature 101.5 F H Pulse Rate 100 H 104 H Respiratory 29 H Rate Blood Pressure 104/58 104/58 O2 Sat by Pulse 95 97 Oximetry 04/03/17 04/04/17 04/04/17 23:45 00:00 00:15 Temperature Pulse Rate 99 H 96 H 96 H Respiratory 19 29 H 12 Rate Blood Pressure 104/58 103/54 103/54 O2 Sat by Pulse 96 93 97 Oximetry 04/04/17 04/04/17 04/04/17 00:31 00:45 01:00 Temperature Pulse Rate 91 H 86 84 Respiratory 25 H 28 H 28 H Rate Blood Pressure 103/54 103/54 102/56 O2 Sat by Pulse 94 95 95 Oximetry 04/04/17 04/04/17 04/04/17 01:15 01:31 01:45 Temperature Pulse Rate 96 H 97 H 91 H Respiratory 15 25 H 11 L Rate Blood Pressure 102/56 102/56 102/56 O2 Sat by Pulse 96 98 97 Oximetry 04/04/17 04/04/17 04/04/17 02:01 02:15 02:31 Temperature Pulse Rate 119 H 118 H 110 H Respiratory 28 H 31 H 24 Rate Blood Pressure 102/56 114/60 114/60 O2 Sat by Pulse 97 96 96 Oximetry 04/04/17 04/04/17 04/04/17 02:45 03:00 03:15 Temperature Pulse Rate 100 H 98 H 101 H Respiratory 26 H 27 H 20 Rate Blood Pressure 114/60 101/53 101/53 O2 Sat by Pulse 94 93 94 Oximetry 04/04/17 04/04/17 04/04/17 03:31 03:45 03:47 Temperature 100 F H Pulse Rate 94 H 89 Respiratory 26 H 25 H Rate Blood Pressure 101/53 101/53 O2 Sat by Pulse 93 94 Oximetry 04/04/17 04/04/17 04/04/17 04:00 04:15 04:17 Temperature Pulse Rate 87 84 83 Respiratory 23 26 H Rate Blood Pressure 103/55 103/55 103/55 O2 Sat by Pulse 95 94 95 Oximetry 04/04/17 04/04/17 04/04/17 04:31 04:45 05:00 Temperature Pulse Rate 103 H 81 81 Respiratory 13 25 H 26 H Rate Blood Pressure 103/55 103/55 99/54 O2 Sat by Pulse 98 96 96 Oximetry 04/04/17 04/04/17 04/04/17 05:15 05:31 05:45 Temperature Pulse Rate 117 H 83 87 Respiratory 25 H 22 11 L Rate Blood Pressure 103/55 103/55 103/55 O2 Sat by Pulse 96 95 95 Oximetry 04/04/17 04/04/17 04/04/17 06:00 06:15 06:31 Temperature Pulse Rate 79 81 80 Respiratory 25 H 24 21 Rate Blood Pressure 102/56 99/54 99/54 O2 Sat by Pulse 94 94 94 Oximetry 04/04/17 04/04/17 04/04/17 06:45 07:00 07:15 Temperature Pulse Rate 86 81 96 H Respiratory 12 24 13 Rate Blood Pressure 99/54 100/55 102/56 O2 Sat by Pulse 96 94 96 Oximetry 04/04/17 04/04/17 04/04/17 07:31 07:45 08:00 Temperature 101.0 F H Pulse Rate 93 H 87 Respiratory 23 18 Rate Blood Pressure 102/56 102/56 O2 Sat by Pulse 96 96 Oximetry 04/04/17 04/04/17 04/04/17 08:01 08:15 08:20 Temperature Pulse Rate 118 H 115 H 92 H Respiratory 13 19 27 H Rate Blood Pressure 102/56 100/55 118/59 O2 Sat by Pulse 96 97 96 Oximetry 04/04/17 04/04/17 04/04/17 08:31 08:45 09:00 Temperature Pulse Rate 88 83 Respiratory 21 21 Rate Blood Pressure 100/55 100/55 O2 Sat by Pulse 92 94 82 L Oximetry 04/04/17 09:01 Temperature Pulse Rate 85 Respiratory 20 Rate Blood Pressure 100/54 O2 Sat by Pulse 95 Oximetry Constitutional: comatose Eyes: injected, other (pinpoint pupils equal and non reactive) ENT: other (orally intubated, off sedation) Neck: supple, no JVD Effort: normal Ascultation: Bilateral: clear, diminished breath sounds ( ) Percussion: Bilateral: not dull Cardiovascular: regular rate and rhythm Gastrointestinal: hypoactive bowel sounds, other (mild distention) Integumentary: other (multiple tattoos) Extremities: no cyanosis Neurologic: unable to assess, other (no posturing on physical examination and stimulation) CBC and BMP: 04/03/17 12:16 03/31/17 09:22 ABG, PT/INR, D-dimer: ABG POC ABG pH 7.457 (7.35-7.45) H 04/04/17 04:34 POC ABG pCO2 29.8 (35-45) L 04/04/17 04:34 POC ABG pO2 76 (80-105) L 04/04/17 04:34 POC ABG HCO3 21.0 04/04/17 04:34 POC ABG Total CO2 22 04/04/17 04:34 POC ABG O2 Sat 96 04/04/17 04:34 PT/INR, D-dimer PT 15.8 Sec. (12.2-14.9) H 03/29/17 11:35 INR 1.20 (0.87-1.13) H 03/29/17 11:35 Abnormal lab findings: Abnormal Labs 03/29/17 03/29/17 03/29/17 11:35 11:35 11:40 WBC MCV 98 H MCH 33 H Plt Count Lymph % (Auto) Lymph # Seg Neutrophils % Lymphocytes % (Manual) Monocytes % (Manual) 9.0 H Nucleated RBC % 1.0 H Seg Neutrophils # Seg Neutrophils # Man Monocytes # (Manual) 0.9 H PT 15.8 H INR 1.20 H Activated Clotting Time POC ABG pH POC ABG pCO2 POC ABG pO2 Potassium 2.7 L* Chloride 95.3 L Carbon Dioxide 17 L BUN Creatinine Glucose 435 H POC Glucose Calcium Total Creatine Kinase CK-MB (CK-2) CK-MB (CK-2) Rel Index Troponin T C-Reactive Protein Total Protein 6.1 L Albumin 3.5 L Triglycerides Ur Specific Gilbert 03/29/17 03/29/17 03/29/17 12:34 13:10 13:25 WBC MCV MCH Plt Count Lymph % (Auto) Lymph # Seg Neutrophils % Lymphocytes % (Manual) Monocytes % (Manual) Nucleated RBC % Seg Neutrophils # Seg Neutrophils # Man Monocytes # (Manual) PT INR Activated Clotting Time 142 H 169 H 175 H POC ABG pH POC ABG pCO2 POC ABG pO2 Potassium Chloride Carbon Dioxide BUN Creatinine Glucose POC Glucose Calcium Total Creatine Kinase CK-MB (CK-2) CK-MB (CK-2) Rel Index Troponin T C-Reactive Protein Total Protein Albumin Triglycerides Ur Specific Gilbert 03/29/17 03/29/17 03/29/17 14:50 15:18 19:52 WBC MCV MCH Plt Count Lymph % (Auto) Lymph # Seg Neutrophils % Lymphocytes % (Manual) Monocytes % (Manual) Nucleated RBC % Seg Neutrophils # Seg Neutrophils # Man Monocytes # (Manual) PT INR Activated Clotting Time 175 H POC ABG pH 7.293 L POC ABG pCO2 POC ABG pO2 602 H Potassium Chloride Carbon Dioxide BUN Creatinine Glucose POC Glucose Calcium Total Creatine Kinase 7263 H CK-MB (CK-2) > 300.0 H CK-MB (CK-2) Rel Index 4.1 H Troponin T 8.080 H* D C-Reactive Protein Total Protein Albumin Triglycerides 195 H Ur Specific Gilbert 03/30/17 03/30/17 03/30/17 03:50 03:50 06:19 WBC 19.5 H MCV MCH Plt Count Lymph % (Auto) Lymph # Seg Neutrophils % Lymphocytes % (Manual) 7.0 L Monocytes % (Manual) Nucleated RBC % Seg Neutrophils # Seg Neutrophils # Man 12.7 H Monocytes # (Manual) 1.4 H PT INR Activated Clotting Time POC ABG pH POC ABG pCO2 28.2 L POC ABG pO2 108 H Potassium Chloride 108.9 H Carbon Dioxide 15 L BUN 25 H Creatinine Glucose 158 H POC Glucose Calcium 8.1 L Total Creatine Kinase 7963 H CK-MB (CK-2) > 300.0 H CK-MB (CK-2) Rel Index Troponin T 6.850 H* C-Reactive Protein Total Protein Albumin Triglycerides Ur Specific Gilbert 03/30/17 03/30/17 03/31/17 09:45 16:04 02:19 WBC MCV MCH Plt Count Lymph % (Auto) Lymph # Seg Neutrophils % Lymphocytes % (Manual) Monocytes % (Manual) Nucleated RBC % Seg Neutrophils # Seg Neutrophils # Man Monocytes # (Manual) PT INR Activated Clotting Time POC ABG pH POC ABG pCO2 POC ABG pO2 Potassium Chloride Carbon Dioxide BUN Creatinine Glucose POC Glucose 137 H Calcium Total Creatine Kinase CK-MB (CK-2) CK-MB (CK-2) Rel Index Troponin T C-Reactive Protein 21.80 H Total Protein Albumin Triglycerides Ur Specific Gilbert 1.031 H 03/31/17 03/31/17 03/31/17 03:57 06:54 09:22 WBC MCV MCH Plt Count Lymph % (Auto) Lymph # Seg Neutrophils % Lymphocytes % (Manual) Monocytes % (Manual) Nucleated RBC % Seg Neutrophils # Seg Neutrophils # Man Monocytes # (Manual) PT INR Activated Clotting Time POC ABG pH 7.475 H POC ABG pCO2 25.4 L POC ABG pO2 62 L Potassium Chloride Carbon Dioxide 19 L BUN 22 H Creatinine 0.6 L Glucose 148 H POC Glucose 143 H Calcium 8.3 L Total Creatine Kinase CK-MB (CK-2) CK-MB (CK-2) Rel Index Troponin T C-Reactive Protein Total Protein Albumin Triglycerides Ur Specific Gilbert 03/31/17 03/31/17 03/31/17 11:40 17:47 23:38 WBC MCV MCH Plt Count Lymph % (Auto) Lymph # Seg Neutrophils % Lymphocytes % (Manual) Monocytes % (Manual) Nucleated RBC % Seg Neutrophils # Seg Neutrophils # Man Monocytes # (Manual) PT INR Activated Clotting Time POC ABG pH POC ABG pCO2 POC ABG pO2 Potassium Chloride Carbon Dioxide BUN Creatinine Glucose POC Glucose 127 H 137 H 148 H Calcium Total Creatine Kinase CK-MB (CK-2) CK-MB (CK-2) Rel Index Troponin T C-Reactive Protein Total Protein Albumin Triglycerides Ur Specific Gilbert 04/01/17 04/01/17 04/01/17 04:29 05:01 11:54 WBC MCV MCH Plt Count Lymph % (Auto) Lymph # Seg Neutrophils % Lymphocytes % (Manual) Monocytes % (Manual) Nucleated RBC % Seg Neutrophils # Seg Neutrophils # Man Monocytes # (Manual) PT INR Activated Clotting Time POC ABG pH 7.513 H POC ABG pCO2 22.1 L POC ABG pO2 64 L Potassium Chloride Carbon Dioxide BUN Creatinine Glucose POC Glucose 121 H Calcium Total Creatine Kinase CK-MB (CK-2) CK-MB (CK-2) Rel Index Troponin T C-Reactive Protein Total Protein Albumin Triglycerides 151 H Ur Specific Gilbert 04/01/17 04/02/17 04/02/17 18:17 00:11 04:52 WBC MCV MCH Plt Count Lymph % (Auto) Lymph # Seg Neutrophils % Lymphocytes % (Manual) Monocytes % (Manual) Nucleated RBC % Seg Neutrophils # Seg Neutrophils # Man Monocytes # (Manual) PT INR Activated Clotting Time POC ABG pH 7.524 H POC ABG pCO2 25.5 L POC ABG pO2 66 L Potassium Chloride Carbon Dioxide BUN Creatinine Glucose POC Glucose 117 H 122 H Calcium Total Creatine Kinase CK-MB (CK-2) CK-MB (CK-2) Rel Index Troponin T C-Reactive Protein Total Protein Albumin Triglycerides Ur Specific Gilbert 04/02/17 04/02/17 04/02/17 05:18 10:41 12:19 WBC MCV MCH Plt Count Lymph % (Auto) Lymph # Seg Neutrophils % Lymphocytes % (Manual) Monocytes % (Manual) Nucleated RBC % Seg Neutrophils # Seg Neutrophils # Man Monocytes # (Manual) PT INR Activated Clotting Time POC ABG pH 7.534 H POC ABG pCO2 27.4 L POC ABG pO2 Potassium Chloride Carbon Dioxide BUN Creatinine Glucose POC Glucose 132 H 129 H Calcium Total Creatine Kinase CK-MB (CK-2) CK-MB (CK-2) Rel Index Troponin T C-Reactive Protein Total Protein Albumin Triglycerides Ur Specific Gilbert 04/02/17 04/03/17 04/03/17 18:05 00:08 05:09 WBC MCV MCH Plt Count Lymph % (Auto) Lymph # Seg Neutrophils % Lymphocytes % (Manual) Monocytes % (Manual) Nucleated RBC % Seg Neutrophils # Seg Neutrophils # Man Monocytes # (Manual) PT INR Activated Clotting Time POC ABG pH 7.455 H POC ABG pCO2 33.2 L POC ABG pO2 120 H Potassium Chloride Carbon Dioxide BUN Creatinine Glucose POC Glucose 136 H 128 H Calcium Total Creatine Kinase CK-MB (CK-2) CK-MB (CK-2) Rel Index Troponin T C-Reactive Protein Total Protein Albumin Triglycerides Ur Specific Gilbert 04/03/17 04/03/17 04/03/17 06:32 11:54 12:16 WBC 11.9 H MCV MCH Plt Count 125 L Lymph % (Auto) 4.8 L Lymph # 0.6 L Seg Neutrophils % 86.7 H Lymphocytes % (Manual) Monocytes % (Manual) Nucleated RBC % Seg Neutrophils # 10.3 H Seg Neutrophils # Man Monocytes # (Manual) PT INR Activated Clotting Time POC ABG pH POC ABG pCO2 POC ABG pO2 Potassium Chloride Carbon Dioxide BUN Creatinine Glucose POC Glucose 138 H 143 H Calcium Total Creatine Kinase CK-MB (CK-2) CK-MB (CK-2) Rel Index Troponin T C-Reactive Protein Total Protein Albumin Triglycerides Ur Specific Gilbert 04/03/17 04/03/17 04/04/17 17:33 23:59 04:23 WBC MCV MCH Plt Count Lymph % (Auto) Lymph # Seg Neutrophils % Lymphocytes % (Manual) Monocytes % (Manual) Nucleated RBC % Seg Neutrophils # Seg Neutrophils # Man Monocytes # (Manual) PT INR Activated Clotting Time POC ABG pH POC ABG pCO2 31.6 L POC ABG pO2 41 L Potassium Chloride Carbon Dioxide BUN Creatinine Glucose POC Glucose 130 H 155 H Calcium Total Creatine Kinase CK-MB (CK-2) CK-MB (CK-2) Rel Index Troponin T C-Reactive Protein Total Protein Albumin Triglycerides Ur Specific Gilbert 04/04/17 04/04/17 04:34 05:27 WBC MCV MCH Plt Count Lymph % (Auto) Lymph # Seg Neutrophils % Lymphocytes % (Manual) Monocytes % (Manual) Nucleated RBC % Seg Neutrophils # Seg Neutrophils # Man Monocytes # (Manual) PT INR Activated Clotting Time POC ABG pH 7.457 H POC ABG pCO2 29.8 L POC ABG pO2 76 L Potassium Chloride Carbon Dioxide BUN Creatinine Glucose POC Glucose 164 H Calcium Total Creatine Kinase CK-MB (CK-2) CK-MB (CK-2) Rel Index Troponin T C-Reactive Protein Total Protein Albumin Triglycerides Ur Specific Gilbert
--- NOTE | 2017-04-04 10:24 | Progress Note ---
Assessment and Plan Assessment: 1) S/P VT cardiac arrest due to STEMI: 100% LAD occlusion s/p angioplasty and stent 2) Sepsis: still fever and leukocytosis. Etiology likely MRSA pneumonia? central ? pansinusitis. CRP=21 3) Encephalopathy: likely severe anoxic injury. CT head unremarkable 4) Presumed aspiration pneumonia: MRSA 5) Amph abuse ? 6) Extensive pansinusitis Plan: -stop vanco -start IV zyvox in view of persistent fever on vanco -contact isolation -f/u blood cultures -stop zosyn day 6 -discussed with family members Thank you Dr Garay for your consultation, will follow up with you. Alla Arana MD Infectious Diseases Specialist [facility] ([facility]) M [phone] O [phone] Subjective Date of service: 04/04/17 Principal diagnosis: septic shock Interval history: Remains critically ill, febrile, intubated on sedative. Tmax 101.5. off pressors. Noted some involuntary movement Microbiology: Urine culture: 03/30 neg Blood cultures: 03/31 ngtd Tracheal asp 03/31 MRSA 04/02 MRSA Current Antimicrobials: Zosyn 03/30 Vancomycin 04/03 Previous Antimicrobials: Objective - Exam Narrative Exam: General appearance: sedated intubated Eyes: icteric sclerae, edematous conjunctivae; no lid-lag; PERRLA HENT: Atraumatic; oropharynx +ETT +NGT Neck: Trachea midline; supple, no thyromegaly or lymphadenopathy Lungs: valeria loud crackles CV: RRR, no murmurs Abdomen: Soft, non-tender Extremities: valeria edema Skin: Normal temperature, turgor and texture; no rash, ulcers or subcutaneous nodules Psych: sedated. Neuro: sedated Lines: No CVL / PICC - Constitutional Vitals: Vital Signs Temp Pulse Resp BP Pulse Ox 101.0 F H 85 20 100/54 95 04/04/17 08:00 04/04/17 09:01 04/04/17 09:01 04/04/17 09:01 04/04/17 09:01 Temperature -Last 24 Hours Temperature 101.0 F Temperature 100 F Temperature 101.5 F Temperature 100.9 F Temperature 99.6 F Temperature 100.5 F - Labs CBC & Chem 7: 04/03/17 12:16 03/31/17 09:22 Labs: Abnormal lab results 04/03/17 04/03/17 04/03/17 Range/Units 11:54 12:16 17:33 WBC 11.9 H (4.5-11.0) K/mm3 Plt Count 125 L (140-440) K/mm3 Lymph % (Auto) 4.8 L (13.4-35.0) % Lymph # 0.6 L (1.2-5.4) K/mm3 Seg Neutrophils % 86.7 H (40.0-70.0) % Seg Neutrophils # 10.3 H (1.8-7.7) K/mm3 POC ABG pH (7.35-7.45) POC ABG pCO2 (35-45) POC ABG pO2 (80-105) POC Glucose 143 H 130 H (70-105) 04/03/17 04/04/17 04/04/17 Range/Units 23:59 04:23 04:34 WBC (4.5-11.0) K/mm3 Plt Count (140-440) K/mm3 Lymph % (Auto) (13.4-35.0) % Lymph # (1.2-5.4) K/mm3 Seg Neutrophils % (40.0-70.0) % Seg Neutrophils # (1.8-7.7) K/mm3 POC ABG pH 7.457 H (7.35-7.45) POC ABG pCO2 31.6 L 29.8 L (35-45) POC ABG pO2 41 L 76 L (80-105) POC Glucose 155 H (70-105) 04/04/17 Range/Units 05:27 WBC (4.5-11.0) K/mm3 Plt Count (140-440) K/mm3 Lymph % (Auto) (13.4-35.0) % Lymph # (1.2-5.4) K/mm3 Seg Neutrophils % (40.0-70.0) % Seg Neutrophils # (1.8-7.7) K/mm3 POC ABG pH (7.35-7.45) POC ABG pCO2 (35-45) POC ABG pO2 (80-105) POC Glucose 164 H (70-105)
[2017-04-04] MEDS: CORDARONE PO SCH ×2 (10:46→22:29)
[2017-04-04] MEDS: ASPIRIN PR SCH (10:46)
[2017-04-04] MEDS: PLAVIX PO SCH (10:46)
[2017-04-04] MEDS: HEPARIN SUB-Q SCH ×2 (10:46→22:50)
[2017-04-04] MEDS: PROTONIX FEEDTUBE SCH (10:46)
[2017-04-04] MEDS: VANCOMYCIN 1,500 MG in NACL 0.9% 500 ML 500 ML IV SCH (10:46)
[2017-04-04] MEDS: NITRO-BID 2% TP SCH ×4 (10:47→19:06)
[2017-04-04] MEDS: ZESTRIL PO SCH ×2 (10:47→10:50)
[2017-04-04] MEDS: LOPRESSOR PO SCH ×2 (10:52→22:30)
[2017-04-04] MEDS: ZOSYN/NS 4.5GM/100ML 4.5 GM/100 ML VIAL IV SCH (10:54)
[2017-04-04] MEDS: DIPRIVAN 10 MG/ML 1,000 MG/100 ML BOTTLE IV SCH (12:05)
[2017-04-04] MEDS: ZYVOX 600MG/300ML 600 MG/300 ML BAG IV SCH ×2 (13:02→22:50)
--- NOTE | 2017-04-04 14:05 | Consultation ---
History of Present Illness Consult date: 04/04/17 History of present illness: spoke to family members plan CT of the head today to assess the resolution of the brain edema from anoxia if the edema has largely gone away and there is little evidence of recovery then we can defiinitely state reasonable recovery of meaningful neurological recovery unlikely Past History Past Medical History: No medical history (Reviewed) Past Surgical History: No surgical history, Other (reviewed.) Social history: single. denies: smoking, alcohol abuse, prescription drug abuse Family history: no significant family history Medications and Allergies Allergies Allergy/AdvReac Type Severity Reaction Status Date / Time No Known Allergies Allergy Unverified 03/29/17 11:35 Home Medications Medication Instructions Recorded Confirmed Last Taken Type No Known Home Medications [No 03/30/17 03/30/17 Unknown History Reported Home Medications] Active Meds: Active Medications Acetaminophen (Tylenol) 1,000 mg PO Q6H PRN PRN Reason: Fever >101 Last Admin: 04/04/17 10:50 Dose: 1,000 mg Albuterol (Proventil) 2.5 mg IH Q3HRT PRN PRN Reason: Shortness Of Breath Amiodarone HCl (Cordarone) 200 mg PO BID [facility] Last Admin: 04/04/17 10:46 Dose: 200 mg Lipase/Protease/Amylase (Pancreaze Dr 10,500 Unit) 1 each FEEDTUBE PRN PRN PRN Reason: For Clogged Feeding Tube Aspirin (Aspirin) 300 mg AK QDAY [facility] Last Admin: 04/04/17 10:46 Dose: 300 mg Atorvastatin Calcium (Lipitor) 20 mg PO QHS [facility] Last Admin: 04/03/17 22:17 Dose: 20 mg Clopidogrel Bisulfate (Plavix) 75 mg PO QDAY [facility] Last Admin: 04/04/17 10:46 Dose: 75 mg Dextrose (D50w (25gm) Syringe) 50 ml IV PRN PRN PRN Reason: Hypoglycemia Heparin Sodium (Porcine) (Heparin) 5,000 unit SUB-Q Q12HR [facility] Last Admin: 04/04/17 10:46 Dose: 5,000 unit Hydrophilic Ointment (Vaseline Lip Therapy) 1 applic TP Q2HR PRN PRN Reason: Dry Lips Last Admin: 03/31/17 22:50 Dose: 1 applic Fentanyl Citrate (Fentanyl Drip Premix) 2,000 mcg in 100 mls @ 4.309 mls/hr IV TITR CHETAN; 1 MCG/KG/HR PRN Reason: Protocol Midazolam HCl 100 mg/ Sodium (Chloride) 100 mls @ 2 mls/hr IV TITR CHETAN; 2 MG/HR PRN Reason: Protocol Last Titration: 03/30/17 09:00 Dose: 0 mg/hr, 0 mls/hr Propofol (Diprivan 10 Mg/Ml) 1,000 mg in 100 mls @ 2.585 mls/hr IV TITR CHETAN; 5 MCG/KG/MIN PRN Reason: Protocol Last Titration: 04/04/17 13:01 Dose: 5 mcg/kg/min, 2.585 mls/hr Norepinephrine (Levophed Drip 4 Mg/Ns 250 Ml) 4 mg in 250 mls @ 7.5 mls/hr IV TITR CHETAN; 2 MCG/MIN PRN Reason: Protocol Last Titration: 03/30/17 09:00 Dose: 10 mcg/min, 37.5 mls/hr Linezolid (Zyvox 600mg/300ml) 600 mg in 300 mls @ 300 mls/hr IV Q12HR CHETAN PRN Reason: Protocol Last Admin: 04/04/17 13:02 Dose: 300 mls/hr Lisinopril (Zestril) 5 mg PO QDAY [facility] Last Admin: 04/04/17 10:50 Dose: Not Given Metoprolol Tartrate (Lopressor) 50 mg PO BID [facility] Last Admin: 04/04/17 10:52 Dose: Not Given Multi-Ingred Cream/Lotion/Oil/Oint (Artificial Tears Ophth Oint) 1 applic OU Q4HR PRN PRN Reason: Dry Eye(s) Last Admin: 03/31/17 22:51 Dose: 1 applic Nitroglycerin (Nitro-Bid 2%) 1 inch TP QIDNTG [facility] PRN Reason: Protocol Last Admin: 04/04/17 13:02 Dose: Not Given Pantoprazole (Protonix) 40 mg FEEDTUBE DAILY [facility] Last Admin: 04/04/17 10:46 Dose: 40 mg Simple Syrup (Simple Syrup) 15 ml FEEDTUBE PRN PRN PRN Reason: Hypoglycemia Simple Syrup (Simple Syrup) 30 ml FEEDTUBE PRN PRN PRN Reason: Hypoglycemia Sodium Bicarbonate (Sodium Bicarbonate) 325 mg FEEDTUBE PRN PRN PRN Reason: For Clogged Feeding Tube Physical Examination - Vital Signs Vital Signs: Vital Signs Pulse Resp Pulse Ox 113 H 28 H 93 03/29/17 11:33 03/29/17 11:33 03/29/17 11:33 Results - Laboratory Findings CBC and BMP: 04/03/17 12:16 03/31/17 09:22 Abnormal Lab Findings: Abnormal Labs 03/29/17 03/29/17 03/29/17 11:35 11:35 11:40 WBC MCV 98 H MCH 33 H Plt Count Lymph % (Auto) Lymph # Seg Neutrophils % Lymphocytes % (Manual) Monocytes % (Manual) 9.0 H Nucleated RBC % 1.0 H Seg Neutrophils # Seg Neutrophils # Man Monocytes # (Manual) 0.9 H PT 15.8 H INR 1.20 H Activated Clotting Time POC ABG pH POC ABG pCO2 POC ABG pO2 Potassium 2.7 L* Chloride 95.3 L Carbon Dioxide 17 L BUN Creatinine Glucose 435 H POC Glucose Calcium Total Creatine Kinase CK-MB (CK-2) CK-MB (CK-2) Rel Index Troponin T C-Reactive Protein Total Protein 6.1 L Albumin 3.5 L Triglycerides Ur Specific [place] 03/29/17 03/29/17 03/29/17 12:34 13:10 13:25 WBC MCV MCH Plt Count Lymph % (Auto) Lymph # Seg Neutrophils % Lymphocytes % (Manual) Monocytes % (Manual) Nucleated RBC % Seg Neutrophils # Seg Neutrophils # Man Monocytes # (Manual) PT INR Activated Clotting Time 142 H 169 H 175 H POC ABG pH POC ABG pCO2 POC ABG pO2 Potassium Chloride Carbon Dioxide BUN Creatinine Glucose POC Glucose Calcium Total Creatine Kinase CK-MB (CK-2) CK-MB (CK-2) Rel Index Troponin T C-Reactive Protein Total Protein Albumin Triglycerides Ur Specific [place] 03/29/17 03/29/17 03/29/17 14:50 15:18 19:52 WBC MCV MCH Plt Count Lymph % (Auto) Lymph # Seg Neutrophils % Lymphocytes % (Manual) Monocytes % (Manual) Nucleated RBC % Seg Neutrophils # Seg Neutrophils # Man Monocytes # (Manual) PT INR Activated Clotting Time 175 H POC ABG pH 7.293 L POC ABG pCO2 POC ABG pO2 602 H Potassium Chloride Carbon Dioxide BUN Creatinine Glucose POC Glucose Calcium Total Creatine Kinase 7263 H CK-MB (CK-2) > 300.0 H CK-MB (CK-2) Rel Index 4.1 H Troponin T 8.080 H* D C-Reactive Protein Total Protein Albumin Triglycerides 195 H Ur Specific [place] 03/30/17 03/30/17 03/30/17 03:50 03:50 06:19 WBC 19.5 H MCV MCH Plt Count Lymph % (Auto) Lymph # Seg Neutrophils % Lymphocytes % (Manual) 7.0 L Monocytes % (Manual) Nucleated RBC % Seg Neutrophils # Seg Neutrophils # Man 12.7 H Monocytes # (Manual) 1.4 H PT INR Activated Clotting Time POC ABG pH POC ABG pCO2 28.2 L POC ABG pO2 108 H Potassium Chloride 108.9 H Carbon Dioxide 15 L BUN 25 H Creatinine Glucose 158 H POC Glucose Calcium 8.1 L Total Creatine Kinase 7963 H CK-MB (CK-2) > 300.0 H CK-MB (CK-2) Rel Index Troponin T 6.850 H* C-Reactive Protein Total Protein Albumin Triglycerides Ur Specific [place] 03/30/17 03/30/17 03/31/17 09:45 16:04 02:19 WBC MCV MCH Plt Count Lymph % (Auto) Lymph # Seg Neutrophils % Lymphocytes % (Manual) Monocytes % (Manual) Nucleated RBC % Seg Neutrophils # Seg Neutrophils # Man Monocytes # (Manual) PT INR Activated Clotting Time POC ABG pH POC ABG pCO2 POC ABG pO2 Potassium Chloride Carbon Dioxide BUN Creatinine Glucose POC Glucose 137 H Calcium Total Creatine Kinase CK-MB (CK-2) CK-MB (CK-2) Rel Index Troponin T C-Reactive Protein 21.80 H Total Protein Albumin Triglycerides Ur Specific [place] 1.031 H 03/31/17 03/31/17 03/31/17 03:57 06:54 09:22 WBC MCV MCH Plt Count Lymph % (Auto) Lymph # Seg Neutrophils % Lymphocytes % (Manual) Monocytes % (Manual) Nucleated RBC % Seg Neutrophils # Seg Neutrophils # Man Monocytes # (Manual) PT INR Activated Clotting Time POC ABG pH 7.475 H POC ABG pCO2 25.4 L POC ABG pO2 62 L Potassium Chloride Carbon Dioxide 19 L BUN 22 H Creatinine 0.6 L Glucose 148 H POC Glucose 143 H Calcium 8.3 L Total Creatine Kinase CK-MB (CK-2) CK-MB (CK-2) Rel Index Troponin T C-Reactive Protein Total Protein Albumin Triglycerides Ur Specific [place] 01/05/18 01/05/18 01/05/18 11:40 17:47 23:38 WBC MCV MCH Plt Count Lymph % (Auto) Lymph # Seg Neutrophils % Lymphocytes % (Manual) Monocytes % (Manual) Nucleated RBC % Seg Neutrophils # Seg Neutrophils # Man Monocytes # (Manual) PT INR Activated Clotting Time POC ABG pH POC ABG pCO2 POC ABG pO2 Potassium Chloride Carbon Dioxide BUN Creatinine Glucose POC Glucose 127 H 137 H 148 H Calcium Total Creatine Kinase CK-MB (CK-2) CK-MB (CK-2) Rel Index Troponin T C-Reactive Protein Total Protein Albumin Triglycerides Ur Specific [place] 04/01/17 04/01/17 04/01/17 04:29 05:01 11:54 WBC MCV MCH Plt Count Lymph % (Auto) Lymph # Seg Neutrophils % Lymphocytes % (Manual) Monocytes % (Manual) Nucleated RBC % Seg Neutrophils # Seg Neutrophils # Man Monocytes # (Manual) PT INR Activated Clotting Time POC ABG pH 7.513 H POC ABG pCO2 22.1 L POC ABG pO2 64 L Potassium Chloride Carbon Dioxide BUN Creatinine Glucose POC Glucose 121 H Calcium Total Creatine Kinase CK-MB (CK-2) CK-MB (CK-2) Rel Index Troponin T C-Reactive Protein Total Protein Albumin Triglycerides 151 H Ur Specific [place] 04/01/17 04/02/17 04/02/17 18:17 00:11 04:52 WBC MCV MCH Plt Count Lymph % (Auto) Lymph # Seg Neutrophils % Lymphocytes % (Manual) Monocytes % (Manual) Nucleated RBC % Seg Neutrophils # Seg Neutrophils # Man Monocytes # (Manual) PT INR Activated Clotting Time POC ABG pH 7.524 H POC ABG pCO2 25.5 L POC ABG pO2 66 L Potassium Chloride Carbon Dioxide BUN Creatinine Glucose POC Glucose 117 H 122 H Calcium Total Creatine Kinase CK-MB (CK-2) CK-MB (CK-2) Rel Index Troponin T C-Reactive Protein Total Protein Albumin Triglycerides Ur Specific [place] 04/02/17 04/02/17 04/02/17 05:18 10:41 12:19 WBC MCV MCH Plt Count Lymph % (Auto) Lymph # Seg Neutrophils % Lymphocytes % (Manual) Monocytes % (Manual) Nucleated RBC % Seg Neutrophils # Seg Neutrophils # Man Monocytes # (Manual) PT INR Activated Clotting Time POC ABG pH 7.534 H POC ABG pCO2 27.4 L POC ABG pO2 Potassium Chloride Carbon Dioxide BUN Creatinine Glucose POC Glucose 132 H 129 H Calcium Total Creatine Kinase CK-MB (CK-2) CK-MB (CK-2) Rel Index Troponin T C-Reactive Protein Total Protein Albumin Triglycerides Ur Specific [place] 04/02/17 04/03/17 04/03/17 18:05 00:08 05:09 WBC MCV MCH Plt Count Lymph % (Auto) Lymph # Seg Neutrophils % Lymphocytes % (Manual) Monocytes % (Manual) Nucleated RBC % Seg Neutrophils # Seg Neutrophils # Man Monocytes # (Manual) PT INR Activated Clotting Time POC ABG pH 7.455 H POC ABG pCO2 33.2 L POC ABG pO2 120 H Potassium Chloride Carbon Dioxide BUN Creatinine Glucose POC Glucose 136 H 128 H Calcium Total Creatine Kinase CK-MB (CK-2) CK-MB (CK-2) Rel Index Troponin T C-Reactive Protein Total Protein Albumin Triglycerides Ur Specific [place] 04/03/17 04/03/17 04/03/17 06:32 11:54 12:16 WBC 11.9 H MCV MCH Plt Count 125 L Lymph % (Auto) 4.8 L Lymph # 0.6 L Seg Neutrophils % 86.7 H Lymphocytes % (Manual) Monocytes % (Manual) Nucleated RBC % Seg Neutrophils # 10.3 H Seg Neutrophils # Man Monocytes # (Manual) PT INR Activated Clotting Time POC ABG pH POC ABG pCO2 POC ABG pO2 Potassium Chloride Carbon Dioxide BUN Creatinine Glucose POC Glucose 138 H 143 H Calcium Total Creatine Kinase CK-MB (CK-2) CK-MB (CK-2) Rel Index Troponin T C-Reactive Protein Total Protein Albumin Triglycerides Ur Specific [place] 04/03/17 04/03/17 04/04/17 17:33 23:59 04:34 WBC MCV MCH Plt Count Lymph % (Auto) Lymph # Seg Neutrophils % Lymphocytes % (Manual) Monocytes % (Manual) Nucleated RBC % Seg Neutrophils # Seg Neutrophils # Man Monocytes # (Manual) PT INR Activated Clotting Time POC ABG pH 7.457 H POC ABG pCO2 29.8 L POC ABG pO2 76 L Potassium Chloride Carbon Dioxide BUN Creatinine Glucose POC Glucose 130 H 155 H Calcium Total Creatine Kinase CK-MB (CK-2) CK-MB (CK-2) Rel Index Troponin T C-Reactive Protein Total Protein Albumin Triglycerides Ur Specific [place] 04/04/17 04/04/17 05:27 12:22 WBC MCV MCH Plt Count Lymph % (Auto) Lymph # Seg Neutrophils % Lymphocytes % (Manual) Monocytes % (Manual) Nucleated RBC % Seg Neutrophils # Seg Neutrophils # Man Monocytes # (Manual) PT INR Activated Clotting Time POC ABG pH POC ABG pCO2 POC ABG pO2 Potassium Chloride Carbon Dioxide BUN Creatinine Glucose POC Glucose 164 H 146 H Calcium Total Creatine Kinase CK-MB (CK-2) CK-MB (CK-2) Rel Index Troponin T C-Reactive Protein Total Protein Albumin Triglycerides Ur Specific [place]
--- NOTE | 2017-04-04 14:57 | Progress Note ---
Assessment and Plan Assessment and plan: 46 YO Male with No PMH presents to ED for evaluation. Pt is unresponsive and unable to provide history. Pt history taken from ED staff and EMS. Pt was at work today and suddenly passed out around 1050 hrs-which was witnessed by patients coworkers. EMS notified, and upon arrival the patient was found to have V Fib. Pt treated IAW ACLS protocol. The patient was given 3 defibrillations, 2 rounds of epinephrine, Narcan, and a half amp of sodium bicarbonate. Pt found to be in respiratory distress and was intubated and placed on vent support. 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 Acute Respiratory failure requiring MV >96 hours Pt intubated, Placed on vent support, Pulmonary consulted, Wean vent as tolerated, daily SBT, Daily sedation holiday, Anterior STEMI sp cardiac arrest case dw cardiology Emergency cath protocol called upon arrival, we found 100% occlusion of the LAD in its prox-mid segment. Successful primari PCI-angioplasty and 3.0-3.5mm BM stents deployed. LAD flow restored-excellent result. 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 He likely had aprolonged period of time without perfusion to his brain. We will continue to monitor his mental status, -His prognosis is grim with very little chance of recovery, this has been conveyed to the family. We would recommend hospice and withdrawal of life supports versus trach and SNIF placement. This was dw family, Critical care physician and neurologist also conveyed the same information to the family unable to go to [facility] as has no insurance -medicare disability application in process of being filled out by family -recommend hospice at this point -case angela Neurologist, Dr Bradley The high probability of a clinically significant, sudden or life threatening deterioration of the [Pulmonary, cardiac, renal] system(s) required my full and direct attention, intervention and personal management. The aggregate critical care time was [65] minutes. This time is in addition to time spent performing reported procedures but includes the following: [x] Data Review and interpretation [x] Patient assessment and monitoring of vital signs [x] Documentation [x] Medication orders and management History Interval history: Patient is nonresponsive, lacks most reflexes, had fever, no vomiting, no agitation Hospitalist Physical - Physical exam Narrative exam: General.: Comatose HEENT: Moist mucous membranes, no LAD, Neck: supple Cardiac: S1-S2 heard Lungs: clear to auscultation bilaterally Abdomen: soft , nontender, nondistended, bowel sounds positive Extremities: no edema clubbing or cyanosis Skin: no rash or lesions Neurologic: Patient is in deep coma, lacks most reflexes, at this time, only has gag reflexs, corneal reflex is absent and decerebrate posturing, pupils are fixed and non reactive, lacks all other reflexes, opens eyes spontaneously - Constitutional Vitals: Temp Pulse Resp BP Pulse Ox 98.7 F 112 H 23 94/46 98 04/04/17 12:00 04/04/17 13:02 04/04/17 13:01 04/04/17 13:02 04/04/17 13:01 General appearance: Present: severe distress Results - Labs CBC & Chem 7: 04/03/17 12:16 03/31/17 09:22 Labs: Laboratory Last Values WBC 11.9 K/mm3 (4.5-11.0) H 04/03/17 12:16 RBC 3.82 M/mm3 (3.65-5.03) 04/03/17 12:16 Hgb 12.1 gm/dl (11.8-15.2) 04/03/17 12:16 Hct 35.7 % (35.5-45.6) 04/03/17 12:16 MCV 94 fl (84-94) 04/03/17 12:16 MCH 32 pg (28-32) 04/03/17 12:16 MCHC 34 % (32-34) 04/03/17 12:16 RDW 14.4 % (13.2-15.2) 04/03/17 12:16 Plt Count 125 K/mm3 (140-440) L 04/03/17 12:16 Lymph % (Auto) 4.8 % (13.4-35.0) L 04/03/17 12:16 [place] % (Auto) 6.3 % (0.0-7.3) 04/03/17 12:16 Eos % (Auto) 1.7 % (0.0-4.3) 04/03/17 12:16 Baso % (Auto) 0.5 % (0.0-1.8) 04/03/17 12:16 Lymph # 0.6 K/mm3 (1.2-5.4) L 04/03/17 12:16 [place] # 0.7 K/mm3 (0.0-0.8) 04/03/17 12:16 Eos # 0.2 K/mm3 (0.0-0.4) 04/03/17 12:16 Baso # 0.1 K/mm3 (0.0-0.1) 04/03/17 12:16 Add Manual Diff Complete 03/30/17 03:50 Total Counted 100 03/30/17 03:50 Seg Neutrophils % 86.7 % (40.0-70.0) H 04/03/17 12:16 Seg Neuts % (Manual) 65.0 % (40.0-70.0) 03/30/17 03:50 Band Neutrophils % 17.0 % 03/30/17 03:50 Lymphocytes % (Manual) 7.0 % (13.4-35.0) L 03/30/17 03:50 Reactive Lymphs % (Man) 0 % 03/30/17 03:50 Monocytes % (Manual) 7.0 % (0.0-7.3) 03/30/17 03:50 Eosinophils % (Manual) 0 % (0.0-4.3) 03/30/17 03:50 Basophils % (Manual) 0 % (0.0-1.8) 03/30/17 03:50 Metamyelocytes % 4.0 % 03/30/17 03:50 Myelocytes % 0 % 03/30/17 03:50 Promyelocytes % 0 % 03/30/17 03:50 Blast Cells % 0 % 03/30/17 03:50 Nucleated RBC % Not Reportable 03/30/17 03:50 Seg Neutrophils # 10.3 K/mm3 (1.8-7.7) H 04/03/17 12:16 Seg Neutrophils # Man 12.7 K/mm3 (1.8-7.7) H 03/30/17 03:50 Band Neutrophils # 3.3 K/mm3 03/30/17 03:50 Lymphocytes # (Manual) 1.4 K/mm3 (1.2-5.4) 03/30/17 03:50 Abs React Lymphs (Man) 0.0 K/mm3 03/30/17 03:50 Monocytes # (Manual) 1.4 K/mm3 (0.0-0.8) H 03/30/17 03:50 Eosinophils # (Manual) 0.0 K/mm3 (0.0-0.4) 03/30/17 03:50 Basophils # (Manual) 0.0 K/mm3 (0.0-0.1) 03/30/17 03:50 Metamyelocytes # 0.8 K/mm3 03/30/17 03:50 Myelocytes # 0.0 K/mm3 03/30/17 03:50 Promyelocytes # 0.0 K/mm3 03/30/17 03:50 Blast Cells # 0.0 K/mm3 03/30/17 03:50 WBC Morphology Not Reportable 03/30/17 03:50 Hypersegmented Neuts Not Reportable 03/30/17 03:50 Hyposegmented Neuts Not Reportable 03/30/17 03:50 Hypogranular Neuts Not Reportable 03/30/17 03:50 Smudge Cells Not Reportable 03/30/17 03:50 Toxic Granulation Not Reportable 03/30/17 03:50 Toxic Vacuolation Not Reportable 03/30/17 03:50 Dohle Bodies Not Reportable 03/30/17 03:50 Pelger-Huet Anomaly Not Reportable 03/30/17 03:50 Sherry Rods Not Reportable 03/30/17 03:50 Platelet Estimate Appears normal 03/30/17 03:50 Clumped Platelets Not Reportable 03/30/17 03:50 Plt Clumps, EDTA Not Reportable 03/30/17 03:50 Large Platelets Not Reportable 03/30/17 03:50 Giant Platelets Not Reportable 03/30/17 03:50 Platelet Satelliting Not Reportable 03/30/17 03:50 Plt Morphology Comment Not Reportable 03/30/17 03:50 RBC Morphology Not Reportable 03/30/17 03:50 Dimorphic RBCs Not Reportable 03/30/17 03:50 Polychromasia Not Reportable 03/30/17 03:50 Hypochromasia Not Reportable 03/30/17 03:50 Poikilocytosis Not Reportable 03/30/17 03:50 Anisocytosis Few 03/30/17 03:50 Microcytosis Not Reportable 03/30/17 03:50 Macrocytosis Not Reportable 03/30/17 03:50 Spherocytes Not Reportable 03/30/17 03:50 Pappenheimer Bodies Not Reportable 03/30/17 03:50 Sickle Cells Not Reportable 03/30/17 03:50 Target Cells Not Reportable 03/30/17 03:50 Tear Drop Cells Not Reportable 03/30/17 03:50 Ovalocytes Not Reportable 03/30/17 03:50 Helmet Cells Not Reportable 03/30/17 03:50 [place] Bodies Not Reportable 03/30/17 03:50 [place] Rings Not Reportable 03/30/17 03:50 Bynum Cells Not Reportable 03/30/17 03:50 Bite Cells Not Reportable 03/30/17 03:50 Crenated Cell Not Reportable 03/30/17 03:50 Elliptocytes Not Reportable 03/30/17 03:50 Acanthocytes (Spur) Not Reportable 03/30/17 03:50 Rouleaux Not Reportable 03/30/17 03:50 Hemoglobin C Crystals Not Reportable 03/30/17 03:50 Schistocytes Not Reportable 03/30/17 03:50 Malaria parasites Not Reportable 03/30/17 03:50 Jermaine Bodies Not Reportable 03/30/17 03:50 Hem Pathologist Commnt No 03/30/17 03:50 PT 15.8 Sec. (12.2-14.9) H 03/29/17 11:35 INR 1.20 (0.87-1.13) H 03/29/17 11:35 APTT 34.8 Sec. (24.2-36.6) 03/29/17 11:35 Activated Clotting Time 92 (74-137) 03/29/17 17:47 POC ABG pH 7.457 (7.35-7.45) H 04/04/17 04:34 POC ABG pCO2 29.8 (35-45) L 04/04/17 04:34 POC ABG pO2 76 (80-105) L 04/04/17 04:34 POC ABG HCO3 21.0 04/04/17 04:34 POC ABG Total CO2 22 04/04/17 04:34 POC ABG O2 Sat 96 04/04/17 04:34 POC ABG Base Excess -3 04/04/17 04:34 FiO2 35 % 04/04/17 04:34 Sodium 144 mmol/L (137-145) 03/31/17 09:22 Potassium 3.6 mmol/L (3.6-5.0) 03/31/17 09:22 Chloride 106.5 mmol/L (98-107) 03/31/17 09:22 Carbon Dioxide 19 mmol/L (22-30) L 03/31/17 09:22 Anion Gap 22 mmol/L 03/31/17 09:22 BUN 22 mg/dL (9-20) H 03/31/17 09:22 Creatinine 0.6 mg/dL (0.8-1.5) L 03/31/17 09:22 Estimated GFR > 60 ml/min 03/31/17 09:22 BUN/Creatinine Ratio 37 % 03/31/17 09:22 Glucose 148 mg/dL (75-100) H 03/31/17 09:22 POC Glucose 146 (70-105) H 04/04/17 12:22 Calcium 8.3 mg/dL (8.4-10.2) L 03/31/17 09:22 Total Bilirubin 0.50 mg/dL (0.1-1.2) 03/29/17 11:35 AST 32 units/L (5-40) 03/29/17 11:35 ALT 25 units/L (7-56) 03/29/17 11:35 Alkaline Phosphatase 112 units/L (35-129) 03/29/17 11:35 Total Creatine Kinase 7963 units/L (55-170) H 03/30/17 03:50 CK-MB (CK-2) > 300.0 ng/mL (0.0-4.0) H 03/30/17 03:50 CK-MB (CK-2) Rel Index 3.7 (0-4) 03/30/17 03:50 Troponin T 6.850 ng/mL (0.00-0.029) H* 03/30/17 03:50 C-Reactive Protein 21.80 mg/dL (0.00-1.30) H 03/30/17 16:04 Total Protein 6.1 g/dL (6.3-8.2) L 03/29/17 11:35 Albumin 3.5 g/dL (3.9-5) L 03/29/17 11:35 Albumin/Globulin Ratio 1.3 % 03/29/17 11:35 Triglycerides 151 mg/dL (2-149) H 04/01/17 04:29 Cholesterol 164 mg/dL (50-199) 03/29/17 19:52 LDL Cholesterol Direct 81 mg/dL (50-130) 03/29/17 19:52 HDL Cholesterol 44 mg/dL (40-59) 03/29/17 19:52 Cholesterol/HDL Ratio 3.72 % 03/29/17 19:52 Urine Color Yellow (Yellow) 03/30/17 09:45 Urine Turbidity Turbid (Clear) 03/30/17 09:45 Urine pH 5.0 (5.0-7.0) 03/30/17 09:45 Ur Specific [place] 1.031 (1.003-1.030) H 03/30/17 09:45 Urine Protein 30 mg/dl mg/dL (Negative) 03/30/17 09:45 Urine Glucose (UA) Neg mg/dL (Negative) 03/30/17 09:45 Urine Ketones 20 mg/dL (Negative) 03/30/17 09:45 Urine Blood Mod (Negative) 03/30/17 09:45 Urine Nitrite Neg (Negative) 03/30/17 09:45 Urine Bilirubin Neg (Negative) 03/30/17 09:45 Urine Urobilinogen < 2.0 mg/dL (<2.0) 03/30/17 09:45 Ur Leukocyte Esterase Tr (Negative) 03/30/17 09:45 Urine WBC (Auto) 1.0 /HPF (0.0-6.0) 03/30/17 09:45 Urine RBC (Auto) 14.0 /HPF (0.0-6.0) 03/30/17 09:45 Amorphous Crystals 1+ 03/30/17 09:45 Urine Opiates Screen Presumptive negative 03/30/17 09:45 Urine Methadone Screen Presumptive negative 03/30/17 09:45 Ur Barbiturates Screen Presumptive negative 03/30/17 09:45 Ur Phencyclidine Scrn Presumptive negative 03/30/17 09:45 Ur Amphetamines Screen Presumptive positive 03/30/17 09:45 U Benzodiazepines Scrn Presumptive positive 03/30/17 09:45 Urine Cocaine Screen Presumptive negative 03/30/17 09:45 U Marijuana (THC) Screen Presumptive negative 03/30/17 09:45 Drugs of Abuse Note Disclamer 03/30/17 09:45 Blood Type O POSITIVE 03/29/17 11:35 Antibody Screen Negative 03/29/17 11:35
--- NOTE | 2017-04-04 16:33 | Progress Note ---
Assessment and Plan Out of hospital VF arrest Acute anterior STEMI. s/p PCI of the LAD using BM stents deployed. reduced LVEF 30-35% by echocardiogram. Respiratory failure intubated on the vent Continue medical therapy with plavix and aspirin without interruption. Afterload reducing therapy, beta blockers, nitrates and statin therapy as tolerated. Supportive cardiac management. Subjective Date of service: 04/04/17 Principal diagnosis: septic shock Interval history: Patient remains intubated, unresponsive on the vent. Objective Vital Signs Temp Pulse Pulse Resp BP Pulse Ox 04/04/17 16:19 90 18 115/65 99 04/04/17 15:45 98.8 F 04/04/17 14:45 79 18 108/63 98 04/04/17 14:31 115 H 21 79/55 98 04/04/17 14:15 96 H 22 83/62 98 04/04/17 14:00 106 H 23 83/62 98 04/04/17 13:45 72 16 101/55 98 04/04/17 13:30 73 20 99/51 98 04/04/17 13:15 73 20 96/54 97 04/04/17 13:02 112 H 94/46 04/04/17 13:01 93 H 12 111/36 99 04/04/17 12:45 76 23 94/46 97 04/04/17 12:30 77 24 93/48 97 04/04/17 12:15 78 22 97/47 96 04/04/17 12:00 98.7 F 81 21 98/52 95 04/04/17 11:45 115 H 14 105/51 99 04/04/17 11:31 82 24 105/51 95 04/04/17 11:15 139 H 28 H 105/51 97 04/04/17 11:00 87 20 108/57 97 04/04/17 10:52 88 105/51 04/04/17 10:47 96 H 105/51 04/04/17 10:45 97 H 24 100/54 97 04/04/17 10:31 94 H 25 H 100/54 96 04/04/17 10:15 121 H 25 H 100/54 97 04/04/17 10:00 82 22 105/51 98 04/04/17 09:45 79 21 118/59 98 04/04/17 09:31 131 H 26 H 118/59 98 04/04/17 09:15 78 19 118/59 98 04/04/17 09:01 85 20 100/54 95 04/04/17 09:00 82 L 04/04/17 08:45 83 21 100/55 94 04/04/17 08:31 88 21 100/55 92 04/04/17 08:20 92 H 27 H 118/59 96 04/04/17 08:15 115 H 19 100/55 97 04/04/17 08:01 118 H 13 102/56 96 04/04/17 08:00 101.0 F H 04/04/17 07:45 87 18 102/56 96 04/04/17 07:31 93 H 23 102/56 96 04/04/17 07:15 96 H 13 102/56 96 04/04/17 07:00 81 24 100/55 94 04/04/17 06:45 86 12 99/54 96 04/04/17 06:31 80 21 99/54 94 04/04/17 06:15 81 24 99/54 94 04/04/17 06:00 79 25 H 102/56 94 04/04/17 05:45 87 11 L 103/55 95 04/04/17 05:31 83 22 103/55 95 04/04/17 05:15 117 H 25 H 103/55 96 04/04/17 05:00 81 26 H 99/54 96 04/04/17 04:45 81 25 H 103/55 96 04/04/17 04:31 103 H 13 103/55 98 04/04/17 04:17 83 103/55 95 04/04/17 04:15 84 26 H 103/55 94 04/04/17 04:00 87 23 103/55 95 04/04/17 03:47 100 F H 04/04/17 03:45 89 25 H 101/53 94 04/04/17 03:31 94 H 26 H 101/53 93 04/04/17 03:15 101 H 20 101/53 94 04/04/17 03:00 98 H 27 H 101/53 93 04/04/17 02:45 100 H 26 H 114/60 94 04/04/17 02:31 110 H 24 114/60 96 04/04/17 02:15 118 H 31 H 114/60 96 04/04/17 02:01 119 H 28 H 102/56 97 04/04/17 01:45 91 H 11 L 102/56 97 04/04/17 01:31 97 H 25 H 102/56 98 04/04/17 01:15 96 H 15 102/56 96 04/04/17 01:00 84 28 H 102/56 95 04/04/17 00:45 86 28 H 103/54 95 04/04/17 00:31 91 H 25 H 103/54 94 04/04/17 00:15 96 H 12 103/54 97 04/04/17 00:00 96 H 29 H 103/54 93 04/03/17 23:45 99 H 19 104/58 96 04/03/17 23:40 104 H 104/58 97 04/03/17 23:38 101.5 F H 04/03/17 23:31 100 H 29 H 104/58 95 04/03/17 23:15 105 H 13 104/58 97 04/03/17 23:01 119 H 30 H 104/58 97 04/03/17 22:45 113 H 18 94/57 97 04/03/17 22:31 103 H 18 94/57 97 04/03/17 22:19 91 H 94/57 04/03/17 22:15 91 H 28 H 94/57 95 04/03/17 22:00 87 27 H 94/57 96 04/03/17 21:45 92 H 27 H 106/61 94 04/03/17 21:31 95 H 26 H 106/61 93 04/03/17 21:15 103 H 20 106/61 93 04/03/17 21:01 99 H 11 L 106/61 94 04/03/17 20:45 106 H 19 107/55 96 04/03/17 20:31 99 H 23 107/55 93 04/03/17 20:15 109 H 28 H 107/55 96 04/03/17 20:04 92 H 27 H 91 04/03/17 20:00 100.9 F H 04/03/17 19:46 99 H 10 L 109/62 97 04/03/17 19:38 96 H 109/62 94 04/03/17 19:30 94 H 19 109/62 95 04/03/17 19:16 93 H 13 109/62 94 04/03/17 19:00 92 H 15 109/62 95 04/03/17 18:46 97 H 13 99/52 97 04/03/17 18:30 81 26 H 99/52 95 04/03/17 18:16 84 27 H 99/52 94 04/03/17 18:00 81 26 H 99/52 96 04/03/17 17:46 82 26 H 99/52 93 04/03/17 17:45 82 26 H 04/03/17 17:30 89 11 L 99/52 98 04/03/17 17:16 83 26 H 99/52 93 04/03/17 17:00 99/52 92 04/03/17 16:46 82 109/59 95 - Physical Examination General: Other (unresponsive on the vent) Cardiac: Positive: Reg Rate and Rhythm
--- NOTE | 2017-04-04 18:57 | Cat Scan Report ---
FINAL REPORT EXAM: CT HEAD/BRAIN WO CON HISTORY: ams TECHNIQUE: Noncontrast CT axial images of the brain. PRIORS: 31 March 2017. FINDINGS: Diffusely decreased attenuation noted in the bilateral cerebral hemispheres, with loss of normal richter-white matter junction and accentuation of intracranial vasculature increased from comparison. Cerebellar attenuation maintained. Partial effacement of cortical sulci. Basilar cisterns remain patent. No apparent parenchymal mass, hemorrhage, midline shift or hydrocephalus. No abnormal, extra-axial fluid or air collection. Osseous calvarium grossly intact. Diffuse mucosal thickening and opacification of the visualized paranasal sinuses again noted. IMPRESSION: 1. Findings probably representing diffuse cerebral edema, which may be associated with global anoxia, and mild mass effect as reported. Clinical correlation and followup suggested. 2. Paranasal sinus disease.
--- NOTE | 2017-04-04 20:22 | Consultation ---
History of Present Illness Consult date: 04/04/17 Requesting physician: KULWINDER GRANADOS Reason for Consult: second opinion Chief complaint: coma, seizures History of present illness: This 46-year-old male had chest pain at work on March 29 then passed out. Bystanders did CPR but paramedics required 3 defibrillations for V. tach and 2 rounds of epinephrine. Narcan was also given. He had significant heart disease. CAD was found at hospital and he underwent successful stenting. CT scan March 31 showed cortical edema. Seen by Dr. Bradley, neurologist, who noted the edema and likely poor prognosis and ordered an EEG showing he thought mostly noise but a background of delta activity though he commented on some sharp waves. A generalized tonic-clonic seizure was seen by another physician as well as myoclonic seizures which were treated with Versed and propofol though later these were stopped without recurrence of overt seizure activity. I've been requested to give a second opinion. I'm not able to arrange to view the EEG tracing tonight though I left a voicemail with the it help desk technician. 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 Brother says no illicit drugs.). denies: prescription drug abuse, IV drug use Family history: no significant family history, CAD (same brother as above had bypass surgery. Liver disease in at least one other brother.), diabetes (mother ) Medications and Allergies Allergies Allergy/AdvReac Type Severity Reaction Status Date / Time No Known Allergies Allergy Unverified 03/29/17 11:35 Home Medications Medication Instructions Recorded Confirmed Last Taken Type No Known Home Medications [No 03/30/17 03/30/17 Unknown History Reported Home Medications] Active Meds: Active Medications Acetaminophen (Tylenol) 1,000 mg PO Q6H PRN PRN Reason: Fever >101 Last Admin: 04/04/17 10:50 Dose: 1,000 mg Albuterol (Proventil) 2.5 mg IH Q3HRT PRN PRN Reason: Shortness Of Breath Amiodarone HCl (Cordarone) 200 mg PO BID [facility] Last Admin: 04/04/17 10:46 Dose: 200 mg Lipase/Protease/Amylase (Pancreaze Dr 10,500 Unit) 1 each FEEDTUBE PRN PRN PRN Reason: For Clogged Feeding Tube Aspirin (Aspirin) 300 mg AK QDAY [facility] Last Admin: 04/04/17 10:46 Dose: 300 mg Atorvastatin Calcium (Lipitor) 20 mg PO QHS [facility] Last Admin: 04/03/17 22:17 Dose: 20 mg Clopidogrel Bisulfate (Plavix) 75 mg PO QDAY [facility] Last Admin: 04/04/17 10:46 Dose: 75 mg Dextrose (D50w (25gm) Syringe) 50 ml IV PRN PRN PRN Reason: Hypoglycemia Heparin Sodium (Porcine) (Heparin) 5,000 unit SUB-Q Q12HR [facility] Last Admin: 04/04/17 10:46 Dose: 5,000 unit Hydrophilic Ointment (Vaseline Lip Therapy) 1 applic TP Q2HR PRN PRN Reason: Dry Lips Last Admin: 03/31/17 22:50 Dose: 1 applic Fentanyl Citrate (Fentanyl Drip Premix) 2,000 mcg in 100 mls @ 4.309 mls/hr IV TITR CHETAN; 1 MCG/KG/HR PRN Reason: Protocol Midazolam HCl 100 mg/ Sodium (Chloride) 100 mls @ 2 mls/hr IV TITR CHETAN; 2 MG/HR PRN Reason: Protocol Last Titration: 03/30/17 09:00 Dose: 0 mg/hr, 0 mls/hr Propofol (Diprivan 10 Mg/Ml) 1,000 mg in 100 mls @ 2.585 mls/hr IV TITR CHETAN; 5 MCG/KG/MIN PRN Reason: Protocol Last Titration: 04/04/17 13:01 Dose: 5 mcg/kg/min, 2.585 mls/hr Norepinephrine (Levophed Drip 4 Mg/Ns 250 Ml) 4 mg in 250 mls @ 7.5 mls/hr IV TITR CHETAN; 2 MCG/MIN PRN Reason: Protocol Last Titration: 03/30/17 09:00 Dose: 10 mcg/min, 37.5 mls/hr Linezolid (Zyvox 600mg/300ml) 600 mg in 300 mls @ 300 mls/hr IV Q12HR [facility] PRN Reason: Protocol Last Admin: 04/04/17 13:02 Dose: 300 mls/hr Lisinopril (Zestril) 5 mg PO QDAY [facility] Last Admin: 04/04/17 10:50 Dose: Not Given Metoprolol Tartrate (Lopressor) 50 mg PO BID [facility] Last Admin: 04/04/17 10:52 Dose: Not Given Multi-Ingred Cream/Lotion/Oil/Oint (Artificial Tears Ophth Oint) 1 applic OU Q4HR PRN PRN Reason: Dry Eye(s) Last Admin: 03/31/17 22:51 Dose: 1 applic Nitroglycerin (Nitro-Bid 2%) 1 inch TP QIDNTG [facility] PRN Reason: Protocol Last Admin: 04/04/17 19:06 Dose: Not Given Pantoprazole (Protonix) 40 mg FEEDTUBE DAILY [facility] Last Admin: 04/04/17 10:46 Dose: 40 mg Simple Syrup (Simple Syrup) 15 ml FEEDTUBE PRN PRN PRN Reason: Hypoglycemia Simple Syrup (Simple Syrup) 30 ml FEEDTUBE PRN PRN PRN Reason: Hypoglycemia Sodium Bicarbonate (Sodium Bicarbonate) 325 mg FEEDTUBE PRN PRN PRN Reason: For Clogged Feeding Tube Review of Systems Ears, nose, mouth and throat: headache (no extensive review of systems possible due to intubation [place] mentioned migraines and the fact that the patient complained of chest pain the day of admission) Physical Examination - Vital Signs Vital Signs: Vital Signs Pulse Resp Pulse Ox 113 H 28 H 93 03/29/17 11:33 03/29/17 11:33 03/29/17 11:33 - Constitutional General appearance: other (well-developed well-nourished mid 40s male, intubated, eyes at times open and at times closed but not tracking the examiner) - EENT EENT: Present: ATNC, other (intubated, no bruits) - Cardiovascular Cardiovascular: Present: regular rate, no murmurs Extremities: Present: no peripheral edema bilatateraly, other (2+ dorsalis pedis pulses bilaterally) - Neurologic Cranial nerve examination: other (no blink to visual threat, no papilledema, spontaneous venous pulsations are present. PERRL. positive doll's eyes. Corneal stimulation produces turning of the head but no blinking was later followed by repetitive blinking but cannot blink to command or close his eyes or open them to command in [place]ian. No grimace to supraorbital pressure or pinprick. Slight cough to tongue blade stimulation posterior pharynx, cannot assess hearing. Cannot assess tongue protrusion.) Fundoscopic examination: other (no papilledema, spontaneous venous pulsations are present) Speech examination: other (intubated) Sensorimotor examination: other (decerebrate left more than right to chest skin pinch or palm irritation and slightly to neck skin pinch. Slight withdrawal of the lower extremities right greater than left to plantar stimulation) Detailed sensory examination: other (no response to nailbed pressure in all 4 limbs or to pinprick) Posture: decerebrate Reflex and gait examination: other (negative bilaterally, Yasmin's is negative bilaterally) Reflexes: 1+: ankle (1 bilaterally), 2+: bicep (bilaterally), knee, tricep (2 bilaterally, brachioradialis are 2 bilaterally) Cerebellar examination: other (cannot cooperate) - Additional Exam Additional Exam: Mental status: Intubated, no following of commands, no visual tracking Results - Laboratory Findings CBC and BMP: 04/03/17 12:16 03/31/17 09:22 Abnormal Lab Findings: Abnormal Labs 03/29/17 03/29/17 03/29/17 11:35 11:35 11:40 WBC MCV 98 H MCH 33 H Plt Count Lymph % (Auto) Lymph # Seg Neutrophils % Lymphocytes % (Manual) Monocytes % (Manual) 9.0 H Nucleated RBC % 1.0 H Seg Neutrophils # Seg Neutrophils # Man Monocytes # (Manual) 0.9 H PT 15.8 H INR 1.20 H Activated Clotting Time POC ABG pH POC ABG pCO2 POC ABG pO2 Potassium 2.7 L* Chloride 95.3 L Carbon Dioxide 17 L BUN Creatinine Glucose 435 H POC Glucose Calcium Total Creatine Kinase CK-MB (CK-2) CK-MB (CK-2) Rel Index Troponin T C-Reactive Protein Total Protein 6.1 L Albumin 3.5 L Triglycerides Ur Specific [place] 03/29/17 03/29/17 03/29/17 12:34 13:10 13:25 WBC MCV MCH Plt Count Lymph % (Auto) Lymph # Seg Neutrophils % Lymphocytes % (Manual) Monocytes % (Manual) Nucleated RBC % Seg Neutrophils # Seg Neutrophils # Man Monocytes # (Manual) PT INR Activated Clotting Time 142 H 169 H 175 H POC ABG pH POC ABG pCO2 POC ABG pO2 Potassium Chloride Carbon Dioxide BUN Creatinine Glucose POC Glucose Calcium Total Creatine Kinase CK-MB (CK-2) CK-MB (CK-2) Rel Index Troponin T C-Reactive Protein Total Protein Albumin Triglycerides Ur Specific [place] 03/29/17 03/29/17 03/29/17 14:50 15:18 19:52 WBC MCV MCH Plt Count Lymph % (Auto) Lymph # Seg Neutrophils % Lymphocytes % (Manual) Monocytes % (Manual) Nucleated RBC % Seg Neutrophils # Seg Neutrophils # Man Monocytes # (Manual) PT INR Activated Clotting Time 175 H POC ABG pH 7.293 L POC ABG pCO2 POC ABG pO2 602 H Potassium Chloride Carbon Dioxide BUN Creatinine Glucose POC Glucose Calcium Total Creatine Kinase 7263 H CK-MB (CK-2) > 300.0 H CK-MB (CK-2) Rel Index 4.1 H Troponin T 8.080 H* D C-Reactive Protein Total Protein Albumin Triglycerides 195 H Ur Specific [place] 03/30/17 03/30/17 03/30/17 03:50 03:50 06:19 WBC 19.5 H MCV MCH Plt Count Lymph % (Auto) Lymph # Seg Neutrophils % Lymphocytes % (Manual) 7.0 L Monocytes % (Manual) Nucleated RBC % Seg Neutrophils # Seg Neutrophils # Man 12.7 H Monocytes # (Manual) 1.4 H PT INR Activated Clotting Time POC ABG pH POC ABG pCO2 28.2 L POC ABG pO2 108 H Potassium Chloride 108.9 H Carbon Dioxide 15 L BUN 25 H Creatinine Glucose 158 H POC Glucose Calcium 8.1 L Total Creatine Kinase 7963 H CK-MB (CK-2) > 300.0 H CK-MB (CK-2) Rel Index Troponin T 6.850 H* C-Reactive Protein Total Protein Albumin Triglycerides Ur Specific [place] 03/30/17 03/30/17 03/31/17 09:45 16:04 02:19 WBC MCV MCH Plt Count Lymph % (Auto) Lymph # Seg Neutrophils % Lymphocytes % (Manual) Monocytes % (Manual) Nucleated RBC % Seg Neutrophils # Seg Neutrophils # Man Monocytes # (Manual) PT INR Activated Clotting Time POC ABG pH POC ABG pCO2 POC ABG pO2 Potassium Chloride Carbon Dioxide BUN Creatinine Glucose POC Glucose 137 H Calcium Total Creatine Kinase CK-MB (CK-2) CK-MB (CK-2) Rel Index Troponin T C-Reactive Protein 21.80 H Total Protein Albumin Triglycerides Ur Specific [place] 1.031 H 03/31/17 03/31/17 03/31/17 03:57 06:54 09:22 WBC MCV MCH Plt Count Lymph % (Auto) Lymph # Seg Neutrophils % Lymphocytes % (Manual) Monocytes % (Manual) Nucleated RBC % Seg Neutrophils # Seg Neutrophils # Man Monocytes # (Manual) PT INR Activated Clotting Time POC ABG pH 7.475 H POC ABG pCO2 25.4 L POC ABG pO2 62 L Potassium Chloride Carbon Dioxide 19 L BUN 22 H Creatinine 0.6 L Glucose 148 H POC Glucose 143 H Calcium 8.3 L Total Creatine Kinase CK-MB (CK-2) CK-MB (CK-2) Rel Index Troponin T C-Reactive Protein Total Protein Albumin Triglycerides Ur Specific [place] 03/31/17 03/31/17 03/31/17 11:40 17:47 23:38 WBC MCV MCH Plt Count Lymph % (Auto) Lymph # Seg Neutrophils % Lymphocytes % (Manual) Monocytes % (Manual) Nucleated RBC % Seg Neutrophils # Seg Neutrophils # Man Monocytes # (Manual) PT INR Activated Clotting Time POC ABG pH POC ABG pCO2 POC ABG pO2 Potassium Chloride Carbon Dioxide BUN Creatinine Glucose POC Glucose 127 H 137 H 148 H Calcium Total Creatine Kinase CK-MB (CK-2) CK-MB (CK-2) Rel Index Troponin T C-Reactive Protein Total Protein Albumin Triglycerides Ur Specific [place] 04/01/17 04/01/17 04/01/17 04:29 05:01 11:54 WBC MCV MCH Plt Count Lymph % (Auto) Lymph # Seg Neutrophils % Lymphocytes % (Manual) Monocytes % (Manual) Nucleated RBC % Seg Neutrophils # Seg Neutrophils # Man Monocytes # (Manual) PT INR Activated Clotting Time POC ABG pH 7.513 H POC ABG pCO2 22.1 L POC ABG pO2 64 L Potassium Chloride Carbon Dioxide BUN Creatinine Glucose POC Glucose 121 H Calcium Total Creatine Kinase CK-MB (CK-2) CK-MB (CK-2) Rel Index Troponin T C-Reactive Protein Total Protein Albumin Triglycerides 151 H Ur Specific [place] 04/01/17 04/02/17 04/02/17 18:17 00:11 04:52 WBC MCV MCH Plt Count Lymph % (Auto) Lymph # Seg Neutrophils % Lymphocytes % (Manual) Monocytes % (Manual) Nucleated RBC % Seg Neutrophils # Seg Neutrophils # Man Monocytes # (Manual) PT INR Activated Clotting Time POC ABG pH 7.524 H POC ABG pCO2 25.5 L POC ABG pO2 66 L Potassium Chloride Carbon Dioxide BUN Creatinine Glucose POC Glucose 117 H 122 H Calcium Total Creatine Kinase CK-MB (CK-2) CK-MB (CK-2) Rel Index Troponin T C-Reactive Protein Total Protein Albumin Triglycerides Ur Specific [place] 04/02/17 04/02/17 04/02/17 05:18 10:41 12:19 WBC MCV MCH Plt Count Lymph % (Auto) Lymph # Seg Neutrophils % Lymphocytes % (Manual) Monocytes % (Manual) Nucleated RBC % Seg Neutrophils # Seg Neutrophils # Man Monocytes # (Manual) PT INR Activated Clotting Time POC ABG pH 7.534 H POC ABG pCO2 27.4 L POC ABG pO2 Potassium Chloride Carbon Dioxide BUN Creatinine Glucose POC Glucose 132 H 129 H Calcium Total Creatine Kinase CK-MB (CK-2) CK-MB (CK-2) Rel Index Troponin T C-Reactive Protein Total Protein Albumin Triglycerides Ur Specific [place] 04/02/17 04/03/17 04/03/17 18:05 00:08 05:09 WBC MCV MCH Plt Count Lymph % (Auto) Lymph # Seg Neutrophils % Lymphocytes % (Manual) Monocytes % (Manual) Nucleated RBC % Seg Neutrophils # Seg Neutrophils # Man Monocytes # (Manual) PT INR Activated Clotting Time POC ABG pH 7.455 H POC ABG pCO2 33.2 L POC ABG pO2 120 H Potassium Chloride Carbon Dioxide BUN Creatinine Glucose POC Glucose 136 H 128 H Calcium Total Creatine Kinase CK-MB (CK-2) CK-MB (CK-2) Rel Index Troponin T C-Reactive Protein Total Protein Albumin Triglycerides Ur Specific [place] 04/03/17 04/03/17 04/03/17 06:32 11:54 12:16 WBC 11.9 H MCV MCH Plt Count 125 L Lymph % (Auto) 4.8 L Lymph # 0.6 L Seg Neutrophils % 86.7 H Lymphocytes % (Manual) Monocytes % (Manual) Nucleated RBC % Seg Neutrophils # 10.3 H Seg Neutrophils # Man Monocytes # (Manual) PT INR Activated Clotting Time POC ABG pH POC ABG pCO2 POC ABG pO2 Potassium Chloride Carbon Dioxide BUN Creatinine Glucose POC Glucose 138 H 143 H Calcium Total Creatine Kinase CK-MB (CK-2) CK-MB (CK-2) Rel Index Troponin T C-Reactive Protein Total Protein Albumin Triglycerides Ur Specific [place] 04/03/17 04/03/17 04/04/17 17:33 23:59 04:34 WBC MCV MCH Plt Count Lymph % (Auto) Lymph # Seg Neutrophils % Lymphocytes % (Manual) Monocytes % (Manual) Nucleated RBC % Seg Neutrophils # Seg Neutrophils # Man Monocytes # (Manual) PT INR Activated Clotting Time POC ABG pH 7.457 H POC ABG pCO2 29.8 L POC ABG pO2 76 L Potassium Chloride Carbon Dioxide BUN Creatinine Glucose POC Glucose 130 H 155 H Calcium Total Creatine Kinase CK-MB (CK-2) CK-MB (CK-2) Rel Index Troponin T C-Reactive Protein Total Protein Albumin Triglycerides Ur Specific [place] 04/04/17 04/04/17 04/04/17 05:27 12:22 18:18 WBC MCV MCH Plt Count Lymph % (Auto) Lymph # Seg Neutrophils % Lymphocytes % (Manual) Monocytes % (Manual) Nucleated RBC % Seg Neutrophils # Seg Neutrophils # Man Monocytes # (Manual) PT INR Activated Clotting Time POC ABG pH POC ABG pCO2 POC ABG pO2 Potassium Chloride Carbon Dioxide BUN Creatinine Glucose POC Glucose 164 H 146 H 130 H Calcium Total Creatine Kinase CK-MB (CK-2) CK-MB (CK-2) Rel Index Troponin T C-Reactive Protein Total Protein Albumin Triglycerides Ur Specific [place] - Diagnostic Findings Additional findings: CT scan reviewed done tonight shows increased cortical edema with loss of superior sulci that had been preserved on the March 31 scan. Assessment and Plan Impression: 1. Hypoxic ischemic encephalopathy 2. History of generalized tonic-clonic seizure 3. 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 Will order repeat EEG to see if suggestive of brain . 2. Discussed poor prognosis with brother and will do so with his sister as well. 3. Since per medical literature, he will not wake up, should consider withdrawal of support. If organ donor, may need apnea testing for brain .
--- NOTE | 2017-04-05 03:29 | XRay Report ---
FINAL REPORT EXAM: XR CHEST 1V AP HISTORY: follow up respiratory failure COMPARISON: April 04, 2017. FINDINGS: Frontal view(s) of the chest obtained. Stable borderline cardiac enlargement. ETT and NG tube remain in place. Persistent patchy. Right infrahilar opacity concerning for pneumonia. No gross effusion or pneumothorax. IMPRESSION: Persistent right infrahilar opacity concerning for pneumonia. ETT and NG tube are grossly unchanged.
[2017-04-05] MEDS: NITRO-BID 2% TP SCH ×4 (05:14→18:00)
--- NOTE | 2017-04-05 08:51 | Progress Note ---
Assessment and Plan Out of hospital Vfib arrest STEMI Chest x-rays with residual infiltrate, possibly residual vascular congestion s/p LHC with stent placement Anoxic encephalopathy. Severe. Fever. Sputum culture positive for MRSA.+ infiltratrate RLL per CXR report Recommendations Continue antibiotics Follow-up EEG comments per neurology Monitor fever Check cultures PPI prophylaxis DVT prophylaxis If , no enough recovery to protect airway, will need trach consult; depending on family decision Discussed with nursing and staff in general. Critical care time with a 31 minutes of [id number] evaluation and coordination of care Subjective Date of service: 04/05/17 Principal diagnosis: septic shock Objective Vital Signs - 12hr 04/04/17 04/04/17 04/04/17 21:00 21:30 22:00 Temperature Pulse Rate 128 H 78 85 Respiratory 23 24 27 H Rate Blood Pressure 98/64 102/54 104/65 O2 Sat by Pulse 97 98 98 Oximetry 04/04/17 04/04/17 04/04/17 22:30 23:00 23:19 Temperature Pulse Rate 91 H 83 Respiratory 14 25 H 14 Rate Blood Pressure 102/56 101/51 107/61 O2 Sat by Pulse 97 96 97 Oximetry 04/04/17 04/04/17 04/04/17 23:30 23:45 23:51 Temperature 98.8 F Pulse Rate 88 85 Respiratory 15 Rate Blood Pressure 97/52 101/51 O2 Sat by Pulse 96 96 Oximetry 04/04/17 04/05/17 04/05/17 23:59 00:00 00:30 Temperature Pulse Rate 88 89 87 Respiratory 26 H 28 H 27 H Rate Blood Pressure 107/61 108/61 105/54 O2 Sat by Pulse 96 98 97 Oximetry 04/05/17 04/05/17 04/05/17 01:00 01:30 02:00 Temperature Pulse Rate 91 H 83 97 H Respiratory 15 26 H 12 Rate Blood Pressure 107/56 105/52 109/57 O2 Sat by Pulse 97 96 97 Oximetry 04/05/17 04/05/17 04/05/17 02:31 03:00 03:30 Temperature Pulse Rate 96 H 86 Respiratory 23 19 25 H Rate Blood Pressure 112/64 105/58 107/53 O2 Sat by Pulse 96 97 96 Oximetry 04/05/17 04/05/17 04/05/17 04:00 04:31 04:43 Temperature 100.0 F H Pulse Rate 113 H 108 H Respiratory 16 26 H Rate Blood Pressure 104/62 99/57 99/57 O2 Sat by Pulse 96 96 96 Oximetry 04/05/17 04/05/17 04/05/17 05:00 05:30 06:00 Temperature Pulse Rate 124 H 92 H 135 H Respiratory 29 H 28 H 29 H Rate Blood Pressure 95/67 106/54 118/67 O2 Sat by Pulse 96 96 97 Oximetry 04/05/17 04/05/17 04/05/17 06:30 07:00 07:30 Temperature Pulse Rate 123 H 128 H 116 H Respiratory 27 H 32 H 14 Rate Blood Pressure 116/67 109/62 116/67 O2 Sat by Pulse 95 97 96 Oximetry 04/05/17 04/05/17 07:50 08:00 Temperature Pulse Rate 134 H 115 H Respiratory 30 H Rate Blood Pressure 110/71 114/63 O2 Sat by Pulse 97 97 Oximetry Constitutional: comatose Eyes: injected, other (pinpoint pupils equal and non reactive) ENT: other (orally intubated, off sedation) Neck: supple, no JVD Effort: normal Ascultation: Bilateral: clear, diminished breath sounds ( ) Percussion: Bilateral: not dull Cardiovascular: regular rate and rhythm Gastrointestinal: hypoactive bowel sounds, other (mild distention) Integumentary: other (multiple tattoos) Extremities: no cyanosis Neurologic: unable to assess, other (no posturing on physical examination and stimulation) CBC and BMP: 04/03/17 12:16 03/31/17 09:22 ABG, PT/INR, D-dimer: ABG POC ABG pH 7.479 (7.35-7.45) H 04/05/17 04:43 POC ABG pCO2 33.5 (35-45) L 04/05/17 04:43 POC ABG pO2 76 (80-105) L 04/05/17 04:43 POC ABG HCO3 24.8 04/05/17 04:43 POC ABG Total CO2 26 04/05/17 04:43 POC ABG O2 Sat 96 04/05/17 04:43 PT/INR, D-dimer PT 15.8 Sec. (12.2-14.9) H 03/29/17 11:35 INR 1.20 (0.87-1.13) H 03/29/17 11:35 Abnormal lab findings: Abnormal Labs 03/29/17 03/29/17 03/29/17 11:35 11:35 11:40 WBC MCV 98 H MCH 33 H Plt Count Lymph % (Auto) Lymph # Seg Neutrophils % Lymphocytes % (Manual) Monocytes % (Manual) 9.0 H Nucleated RBC % 1.0 H Seg Neutrophils # Seg Neutrophils # Man Monocytes # (Manual) 0.9 H PT 15.8 H INR 1.20 H Activated Clotting Time POC ABG pH POC ABG pCO2 POC ABG pO2 Potassium 2.7 L* Chloride 95.3 L Carbon Dioxide 17 L BUN Creatinine Glucose 435 H POC Glucose Calcium Total Creatine Kinase CK-MB (CK-2) CK-MB (CK-2) Rel Index Troponin T C-Reactive Protein Total Protein 6.1 L Albumin 3.5 L Triglycerides Ur Specific Logan 03/29/17 03/29/17 03/29/17 12:34 13:10 13:25 WBC MCV MCH Plt Count Lymph % (Auto) Lymph # Seg Neutrophils % Lymphocytes % (Manual) Monocytes % (Manual) Nucleated RBC % Seg Neutrophils # Seg Neutrophils # Man Monocytes # (Manual) PT INR Activated Clotting Time 142 H 169 H 175 H POC ABG pH POC ABG pCO2 POC ABG pO2 Potassium Chloride Carbon Dioxide BUN Creatinine Glucose POC Glucose Calcium Total Creatine Kinase CK-MB (CK-2) CK-MB (CK-2) Rel Index Troponin T C-Reactive Protein Total Protein Albumin Triglycerides Ur Specific Logan 03/29/17 03/29/17 03/29/17 14:50 15:18 19:52 WBC MCV MCH Plt Count Lymph % (Auto) Lymph # Seg Neutrophils % Lymphocytes % (Manual) Monocytes % (Manual) Nucleated RBC % Seg Neutrophils # Seg Neutrophils # Man Monocytes # (Manual) PT INR Activated Clotting Time 175 H POC ABG pH 7.293 L POC ABG pCO2 POC ABG pO2 602 H Potassium Chloride Carbon Dioxide BUN Creatinine Glucose POC Glucose Calcium Total Creatine Kinase 7263 H CK-MB (CK-2) > 300.0 H CK-MB (CK-2) Rel Index 4.1 H Troponin T 8.080 H* D C-Reactive Protein Total Protein Albumin Triglycerides 195 H Ur Specific Logan 03/30/17 03/30/17 03/30/17 03:50 03:50 06:19 WBC 19.5 H MCV MCH Plt Count Lymph % (Auto) Lymph # Seg Neutrophils % Lymphocytes % (Manual) 7.0 L Monocytes % (Manual) Nucleated RBC % Seg Neutrophils # Seg Neutrophils # Man 12.7 H Monocytes # (Manual) 1.4 H PT INR Activated Clotting Time POC ABG pH POC ABG pCO2 28.2 L POC ABG pO2 108 H Potassium Chloride 108.9 H Carbon Dioxide 15 L BUN 25 H Creatinine Glucose 158 H POC Glucose Calcium 8.1 L Total Creatine Kinase 7963 H CK-MB (CK-2) > 300.0 H CK-MB (CK-2) Rel Index Troponin T 6.850 H* C-Reactive Protein Total Protein Albumin Triglycerides Ur Specific Logan 03/30/17 03/30/17 03/31/17 09:45 16:04 02:19 WBC MCV MCH Plt Count Lymph % (Auto) Lymph # Seg Neutrophils % Lymphocytes % (Manual) Monocytes % (Manual) Nucleated RBC % Seg Neutrophils # Seg Neutrophils # Man Monocytes # (Manual) PT INR Activated Clotting Time POC ABG pH POC ABG pCO2 POC ABG pO2 Potassium Chloride Carbon Dioxide BUN Creatinine Glucose POC Glucose 137 H Calcium Total Creatine Kinase CK-MB (CK-2) CK-MB (CK-2) Rel Index Troponin T C-Reactive Protein 21.80 H Total Protein Albumin Triglycerides Ur Specific Logan 1.031 H 03/31/17 03/31/17 03/31/17 03:57 06:54 09:22 WBC MCV MCH Plt Count Lymph % (Auto) Lymph # Seg Neutrophils % Lymphocytes % (Manual) Monocytes % (Manual) Nucleated RBC % Seg Neutrophils # Seg Neutrophils # Man Monocytes # (Manual) PT INR Activated Clotting Time POC ABG pH 7.475 H POC ABG pCO2 25.4 L POC ABG pO2 62 L Potassium Chloride Carbon Dioxide 19 L BUN 22 H Creatinine 0.6 L Glucose 148 H POC Glucose 143 H Calcium 8.3 L Total Creatine Kinase CK-MB (CK-2) CK-MB (CK-2) Rel Index Troponin T C-Reactive Protein Total Protein Albumin Triglycerides Ur Specific Logan 03/31/17 03/31/17 03/31/17 11:40 17:47 23:38 WBC MCV MCH Plt Count Lymph % (Auto) Lymph # Seg Neutrophils % Lymphocytes % (Manual) Monocytes % (Manual) Nucleated RBC % Seg Neutrophils # Seg Neutrophils # Man Monocytes # (Manual) PT INR Activated Clotting Time POC ABG pH POC ABG pCO2 POC ABG pO2 Potassium Chloride Carbon Dioxide BUN Creatinine Glucose POC Glucose 127 H 137 H 148 H Calcium Total Creatine Kinase CK-MB (CK-2) CK-MB (CK-2) Rel Index Troponin T C-Reactive Protein Total Protein Albumin Triglycerides Ur Specific Logan 04/01/17 04/01/17 04/01/17 04:29 05:01 11:54 WBC MCV MCH Plt Count Lymph % (Auto) Lymph # Seg Neutrophils % Lymphocytes % (Manual) Monocytes % (Manual) Nucleated RBC % Seg Neutrophils # Seg Neutrophils # Man Monocytes # (Manual) PT INR Activated Clotting Time POC ABG pH 7.513 H POC ABG pCO2 22.1 L POC ABG pO2 64 L Potassium Chloride Carbon Dioxide BUN Creatinine Glucose POC Glucose 121 H Calcium Total Creatine Kinase CK-MB (CK-2) CK-MB (CK-2) Rel Index Troponin T C-Reactive Protein Total Protein Albumin Triglycerides 151 H Ur Specific Logan 04/01/17 04/02/17 04/02/17 18:17 00:11 04:52 WBC MCV MCH Plt Count Lymph % (Auto) Lymph # Seg Neutrophils % Lymphocytes % (Manual) Monocytes % (Manual) Nucleated RBC % Seg Neutrophils # Seg Neutrophils # Man Monocytes # (Manual) PT INR Activated Clotting Time POC ABG pH 7.524 H POC ABG pCO2 25.5 L POC ABG pO2 66 L Potassium Chloride Carbon Dioxide BUN Creatinine Glucose POC Glucose 117 H 122 H Calcium Total Creatine Kinase CK-MB (CK-2) CK-MB (CK-2) Rel Index Troponin T C-Reactive Protein Total Protein Albumin Triglycerides Ur Specific Logan 04/02/17 04/02/17 04/02/17 05:18 10:41 12:19 WBC MCV MCH Plt Count Lymph % (Auto) Lymph # Seg Neutrophils % Lymphocytes % (Manual) Monocytes % (Manual) Nucleated RBC % Seg Neutrophils # Seg Neutrophils # Man Monocytes # (Manual) PT INR Activated Clotting Time POC ABG pH 7.534 H POC ABG pCO2 27.4 L POC ABG pO2 Potassium Chloride Carbon Dioxide BUN Creatinine Glucose POC Glucose 132 H 129 H Calcium Total Creatine Kinase CK-MB (CK-2) CK-MB (CK-2) Rel Index Troponin T C-Reactive Protein Total Protein Albumin Triglycerides Ur Specific Logan 04/02/17 04/03/17 04/03/17 18:05 00:08 05:09 WBC MCV MCH Plt Count Lymph % (Auto) Lymph # Seg Neutrophils % Lymphocytes % (Manual) Monocytes % (Manual) Nucleated RBC % Seg Neutrophils # Seg Neutrophils # Man Monocytes # (Manual) PT INR Activated Clotting Time POC ABG pH 7.455 H POC ABG pCO2 33.2 L POC ABG pO2 120 H Potassium Chloride Carbon Dioxide BUN Creatinine Glucose POC Glucose 136 H 128 H Calcium Total Creatine Kinase CK-MB (CK-2) CK-MB (CK-2) Rel Index Troponin T C-Reactive Protein Total Protein Albumin Triglycerides Ur Specific Logan 04/03/17 04/03/17 04/03/17 06:32 11:54 12:16 WBC 11.9 H MCV MCH Plt Count 125 L Lymph % (Auto) 4.8 L Lymph # 0.6 L Seg Neutrophils % 86.7 H Lymphocytes % (Manual) Monocytes % (Manual) Nucleated RBC % Seg Neutrophils # 10.3 H Seg Neutrophils # Man Monocytes # (Manual) PT INR Activated Clotting Time POC ABG pH POC ABG pCO2 POC ABG pO2 Potassium Chloride Carbon Dioxide BUN Creatinine Glucose POC Glucose 138 H 143 H Calcium Total Creatine Kinase CK-MB (CK-2) CK-MB (CK-2) Rel Index Troponin T C-Reactive Protein Total Protein Albumin Triglycerides Ur Specific Logan 04/03/17 04/03/17 04/04/17 17:33 23:59 04:34 WBC MCV MCH Plt Count Lymph % (Auto) Lymph # Seg Neutrophils % Lymphocytes % (Manual) Monocytes % (Manual) Nucleated RBC % Seg Neutrophils # Seg Neutrophils # Man Monocytes # (Manual) PT INR Activated Clotting Time POC ABG pH 7.457 H POC ABG pCO2 29.8 L POC ABG pO2 76 L Potassium Chloride Carbon Dioxide BUN Creatinine Glucose POC Glucose 130 H 155 H Calcium Total Creatine Kinase CK-MB (CK-2) CK-MB (CK-2) Rel Index Troponin T C-Reactive Protein Total Protein Albumin Triglycerides Ur Specific Logan 04/04/17 04/04/17 04/04/17 05:27 12:22 18:18 WBC MCV MCH Plt Count Lymph % (Auto) Lymph # Seg Neutrophils % Lymphocytes % (Manual) Monocytes % (Manual) Nucleated RBC % Seg Neutrophils # Seg Neutrophils # Man Monocytes # (Manual) PT INR Activated Clotting Time POC ABG pH POC ABG pCO2 POC ABG pO2 Potassium Chloride Carbon Dioxide BUN Creatinine Glucose POC Glucose 164 H 146 H 130 H Calcium Total Creatine Kinase CK-MB (CK-2) CK-MB (CK-2) Rel Index Troponin T C-Reactive Protein Total Protein Albumin Triglycerides Ur Specific [place] 04/05/17 04/05/17 04:43 05:28 WBC MCV MCH Plt Count Lymph % (Auto) Lymph # Seg Neutrophils % Lymphocytes % (Manual) Monocytes % (Manual) Nucleated RBC % Seg Neutrophils # Seg Neutrophils # Man Monocytes # (Manual) PT INR Activated Clotting Time POC ABG pH 7.479 H POC ABG pCO2 33.5 L POC ABG pO2 76 L Potassium Chloride Carbon Dioxide BUN Creatinine Glucose POC Glucose 145 H Calcium Total Creatine Kinase CK-MB (CK-2) CK-MB (CK-2) Rel Index Troponin T C-Reactive Protein Total Protein Albumin Triglycerides Ur Specific Logan
--- NOTE | 2017-04-05 10:11 | Progress Note ---
Assessment and Plan Assessment: 1) S/P VT cardiac arrest due to STEMI: 100% LAD occlusion s/p angioplasty and stent 2) Sepsis: still fever and leukocytosis. Etiology likely MRSA pneumonia? central ? pansinusitis. CRP=21 3) Encephalopathy: likely severe anoxic injury. CT head unremarkable 4) Presumed aspiration pneumonia: MRSA 5) Amph abuse ? 6) Extensive pansinusitis Plan: -continue zyvox day 2 of 7 -contact isolation -discussed with family members -neuro eval Thank you Dr Garay for your consultation, will follow up with you. Alla Arana MD Infectious Diseases Specialist [facility] ([facility]) M [phone] O [phone] Subjective Date of service: 04/05/17 Principal diagnosis: septic shock Interval history: Remains critically ill, still intubated unresponsive Tmax 101 - trending down. Microbiology: Urine culture: 03/30 neg Blood cultures: 03/31 ngtd Tracheal asp 03/31 MRSA 04/02 MRSA Current Antimicrobials: zyvox 04/04 Previous Antimicrobials: Zosyn 03/30 Vancomycin 04/03 Objective - Exam Narrative Exam: General appearance: sedated intubated Eyes: icteric sclerae, edematous conjunctivae; no lid-lag; PERRLA HENT: Atraumatic; oropharynx +ETT with thick green secretions +NGT Neck: Trachea midline; supple, no thyromegaly or lymphadenopathy Lungs: valeria loud crackles CV: RRR, no murmurs Abdomen: Soft, non-tender Extremities: valeria edema Skin: Normal temperature, turgor and texture; no rash, ulcers or subcutaneous nodules Psych: sedated. Neuro: sedated Lines: No CVL / PICC - Constitutional Vitals: Vital Signs Temp Pulse Resp BP Pulse Ox 100.9 F H 115 H 30 H 114/63 97 04/05/17 08:00 04/05/17 08:00 04/05/17 08:00 04/05/17 08:00 04/05/17 08:00 Temperature -Last 24 Hours Temperature 100.9 F Temperature 100.0 F Temperature 98.8 F Temperature 99.0 F Temperature 98.8 F Temperature 98.7 F - Labs CBC & Chem 7: 04/03/17 12:16 03/31/17 09:22 Labs: Abnormal lab results 04/04/17 04/04/17 04/05/17 Range/Units 12:22 18:18 04:43 POC ABG pH 7.479 H (7.35-7.45) POC ABG pCO2 33.5 L (35-45) POC ABG pO2 76 L (80-105) POC Glucose 146 H 130 H (70-105) 04/05/17 Range/Units 05:28 POC ABG pH (7.35-7.45) POC ABG pCO2 (35-45) POC ABG pO2 (80-105) POC Glucose 145 H (70-105)
[2017-04-05] MEDS: CORDARONE PO SCH ×2 (10:23→21:35)
[2017-04-05] MEDS: ZESTRIL PO SCH (10:24)
[2017-04-05] MEDS: ASPIRIN PR SCH (10:37)
[2017-04-05] MEDS: PLAVIX PO SCH (10:38)
[2017-04-05] MEDS: PROTONIX FEEDTUBE SCH (10:39)
[2017-04-05] MEDS: TYLENOL PO PRN (12:38)
[2017-04-05] MEDS: LOPRESSOR PO SCH ×2 (12:40→17:40)
[2017-04-05] MEDS: HEPARIN SUB-Q SCH ×2 (12:40→21:46)
--- NOTE | 2017-04-05 15:23 | Progress Note ---
Assessment and Plan Out of hospital VF arrest Acute anterior STEMI s/p PCI of the LAD using BM stents deployed. reduced LVEF 30-35% by echocardiogram. Respiratory failure intubated on the vent Recommendations: Continue medical therapy for coronary artery disease and ischemic cardiomyopathy as tolerated. Supportive cardiac management. Subjective Date of service: 04/05/17 Principal diagnosis: septic shock Interval history: Patient remains intubated, unresponsive on the vent. Objective Vital Signs Temp Pulse Resp BP Pulse Ox 04/05/17 15:01 116 H 30 H 119/74 97 04/05/17 14:31 156 H 33 H 119/72 96 04/05/17 14:01 152 H 33 H 123/62 96 04/05/17 13:30 152 H 35 H 98/65 96 04/05/17 13:01 112 H 16 100/67 95 04/05/17 12:30 112 H 16 110/60 97 04/05/17 12:29 112 H 117/68 97 04/05/17 12:00 101.3 F H 111 H 31 H 113/64 98 04/05/17 11:33 96 04/05/17 11:30 107 H 15 112/61 98 04/05/17 11:00 123 H 30 H 116/66 98 04/05/17 10:30 107 H 27 H 105/63 97 04/05/17 10:00 113 H 12 111/64 96 04/05/17 09:30 110 H 28 H 113/67 97 04/05/17 09:00 111 H 21 98/65 96 04/05/17 08:30 114 H 29 H 98/62 97 04/05/17 08:00 100.9 F H 115 H 30 H 114/63 97 04/05/17 07:50 134 H 110/71 97 04/05/17 07:30 116 H 14 116/67 96 04/05/17 07:00 128 H 32 H 109/62 97 04/05/17 06:30 123 H 27 H 116/67 95 04/05/17 06:00 135 H 29 H 118/67 97 04/05/17 05:30 92 H 28 H 106/54 96 04/05/17 05:00 124 H 29 H 95/67 96 04/05/17 04:43 108 H 99/57 96 04/05/17 04:31 113 H 26 H 99/57 96 04/05/17 04:00 100.0 F H 16 104/62 96 04/05/17 03:30 86 25 H 107/53 96 04/05/17 03:00 96 H 19 105/58 97 04/05/17 02:31 23 112/64 96 04/05/17 02:00 97 H 12 109/57 97 04/05/17 01:30 83 26 H 105/52 96 04/05/17 01:00 91 H 15 107/56 97 04/05/17 00:30 87 27 H 105/54 97 04/05/17 00:00 89 28 H 108/61 98 04/04/17 23:59 88 26 H 107/61 96 04/04/17 23:51 98.8 F 04/04/17 23:45 85 101/51 96 04/04/17 23:30 88 15 97/52 96 04/04/17 23:19 14 107/61 97 04/04/17 23:00 83 25 H 101/51 96 04/04/17 22:30 91 H 14 102/56 97 04/04/17 22:00 85 27 H 104/65 98 04/04/17 21:30 78 24 102/54 98 04/04/17 21:00 128 H 23 98/64 97 04/04/17 20:30 79 25 H 101/53 96 04/04/17 20:00 99.0 F 98 H 13 94/59 93 04/04/17 19:55 135 H 96/52 95 04/04/17 19:45 77 24 96/52 97 04/04/17 19:30 91 H 26 H 106/63 97 04/04/17 19:15 123 H 25 H 111/74 97 04/04/17 19:06 88 106/58 04/04/17 19:01 95 H 13 106/58 93 04/04/17 18:45 76 23 96/52 97 04/04/17 18:30 75 23 94/52 96 04/04/17 18:15 75 21 97/54 97 04/04/17 18:00 115 H 24 109/44 97 04/04/17 17:57 118 H 24 123/81 97 04/04/17 17:15 75 13 105/57 97 04/04/17 17:00 74 20 105/57 97 04/04/17 16:45 82 23 106/68 99 04/04/17 16:30 88 16 113/65 97 04/04/17 16:19 90 18 115/65 99 04/04/17 16:15 109 H 23 113/71 97 04/04/17 16:01 124 H 26 H 113/71 99 04/04/17 15:45 98.8 F 81 13 108/63 99 04/04/17 15:31 102 H 19 108/57 98 - Physical Examination General: Other (unresponsive on the vent) Cardiac: Positive: Reg Rate and Rhythm Neuro: Positive: Other (unresponsive post VF arrest)
--- NOTE | 2017-04-05 15:55 | Consultation ---
History of Present Illness Consult date: 04/05/17 History of present illness: comment on the repeat CT of the brain see large amount of brain edema of the cerebral cortexes indicates the degree of profound hypoxia as stated before do not see much potential for recovery as the brain hypoxia is so severe Past History Past Medical History: No medical history (Reviewed), migraines Past Surgical History: No surgical history, Other (reviewed.) Social history: single, smoking (some current smoking per brother), alcohol abuse (some alcohol though quantity not known by brother though he states the patient had half pint of Olvin Cuadra on alexander), other (does [place], brother works at same company. Brother says no illicit drugs.). denies: prescription drug abuse, IV drug use Family history: no significant family history, CAD (same brother as above had bypass surgery. Liver disease in at least one other brother.), diabetes (mother ) Medications and Allergies Allergies Allergy/AdvReac Type Severity Reaction Status Date / Time No Known Allergies Allergy Unverified 03/29/17 11:35 Home Medications Medication Instructions Recorded Confirmed Last Taken Type No Known Home Medications [No 03/30/17 03/30/17 Unknown History Reported Home Medications] Active Meds: Active Medications Acetaminophen (Tylenol) 1,000 mg PO Q6H PRN PRN Reason: Fever >101 Last Admin: 04/05/17 12:38 Dose: 1,000 mg Albuterol (Proventil) 2.5 mg IH Q3HRT PRN PRN Reason: Shortness Of Breath Amiodarone HCl (Cordarone) 200 mg PO BID PENDING SALE TO [facility] Last Admin: 04/04/17 22:29 Dose: Not Given Lipase/Protease/Amylase (Pancreaze Dr 10,500 Unit) 1 each FEEDTUBE PRN PRN PRN Reason: For Clogged Feeding Tube Aspirin (Aspirin) 300 mg NJ QDAY PENDING SALE TO [facility] Last Admin: 04/05/17 10:37 Dose: 300 mg Atorvastatin Calcium (Lipitor) 20 mg PO QHS PENDING SALE TO [facility] Last Admin: 04/04/17 22:49 Dose: 20 mg Clopidogrel Bisulfate (Plavix) 75 mg PO QDAY PENDING SALE TO [facility] Last Admin: 04/05/17 10:38 Dose: 75 mg Dextrose (D50w (25gm) Syringe) 50 ml IV PRN PRN PRN Reason: Hypoglycemia Heparin Sodium (Porcine) (Heparin) 5,000 unit SUB-Q Q12HR PENDING SALE TO [facility] Last Admin: 04/05/17 12:40 Dose: 5,000 unit Hydrophilic Ointment (Vaseline Lip Therapy) 1 applic TP Q2HR PRN PRN Reason: Dry Lips Last Admin: 03/31/17 22:50 Dose: 1 applic Fentanyl Citrate (Fentanyl Drip Premix) 2,000 mcg in 100 mls @ 4.309 mls/hr IV TITR CHETAN; 1 MCG/KG/HR PRN Reason: Protocol Midazolam HCl 100 mg/ Sodium (Chloride) 100 mls @ 2 mls/hr IV TITR CHETAN; 2 MG/HR PRN Reason: Protocol Last Titration: 03/30/17 09:00 Dose: 0 mg/hr, 0 mls/hr Propofol (Diprivan 10 Mg/Ml) 1,000 mg in 100 mls @ 2.585 mls/hr IV TITR CHETAN; 5 MCG/KG/MIN PRN Reason: Protocol Last Titration: 04/05/17 08:39 Dose: 0 mcg/kg/min, 0 mls/hr Norepinephrine (Levophed Drip 4 Mg/Ns 250 Ml) 4 mg in 250 mls @ 7.5 mls/hr IV TITR CHETAN; 2 MCG/MIN PRN Reason: Protocol Last Titration: 03/30/17 09:00 Dose: 10 mcg/min, 37.5 mls/hr Linezolid (Zyvox 600mg/300ml) 600 mg in 300 mls @ 300 mls/hr IV Q12HR CHETAN PRN Reason: Protocol Last Admin: 04/04/17 22:50 Dose: 300 mls/hr Lisinopril (Zestril) 5 mg PO QDAY PENDING SALE TO [facility] Last Admin: 04/05/17 10:24 Dose: Not Given Metoprolol Tartrate (Lopressor) 50 mg PO BID PENDING SALE TO [facility] Last Admin: 04/05/17 12:40 Dose: 50 mg Multi-Ingred Cream/Lotion/Oil/Oint (Artificial Tears Ophth Oint) 1 applic OU Q4HR PRN PRN Reason: Dry Eye(s) Last Admin: 03/31/17 22:51 Dose: 1 applic Nitroglycerin (Nitro-Bid 2%) 1 inch TP QIDNTG CHETAN PRN Reason: Protocol Last Admin: 04/05/17 10:24 Dose: Not Given Pantoprazole (Protonix) 40 mg FEEDTUBE DAILY CHETAN Last Admin: 04/05/17 10:39 Dose: 40 mg Simple Syrup (Simple Syrup) 15 ml FEEDTUBE PRN PRN PRN Reason: Hypoglycemia Simple Syrup (Simple Syrup) 30 ml FEEDTUBE PRN PRN PRN Reason: Hypoglycemia Sodium Bicarbonate (Sodium Bicarbonate) 325 mg FEEDTUBE PRN PRN PRN Reason: For Clogged Feeding Tube Physical Examination - Vital Signs Vital Signs: Vital Signs Pulse Resp Pulse Ox 113 H 28 H 93 03/29/17 11:33 03/29/17 11:33 03/29/17 11:33 Results - Laboratory Findings CBC and BMP: 04/03/17 12:16 03/31/17 09:22 Abnormal Lab Findings: Abnormal Labs 03/29/17 03/29/17 03/29/17 11:35 11:35 11:40 WBC MCV 98 H MCH 33 H Plt Count Lymph % (Auto) Lymph # Seg Neutrophils % Lymphocytes % (Manual) Monocytes % (Manual) 9.0 H Nucleated RBC % 1.0 H Seg Neutrophils # Seg Neutrophils # Man Monocytes # (Manual) 0.9 H PT 15.8 H INR 1.20 H Activated Clotting Time POC ABG pH POC ABG pCO2 POC ABG pO2 Potassium 2.7 L* Chloride 95.3 L Carbon Dioxide 17 L BUN Creatinine Glucose 435 H POC Glucose Calcium Total Creatine Kinase CK-MB (CK-2) CK-MB (CK-2) Rel Index Troponin T C-Reactive Protein Total Protein 6.1 L Albumin 3.5 L Triglycerides Ur Specific [place] 03/29/17 03/29/17 03/29/17 12:34 13:10 13:25 WBC MCV MCH Plt Count Lymph % (Auto) Lymph # Seg Neutrophils % Lymphocytes % (Manual) Monocytes % (Manual) Nucleated RBC % Seg Neutrophils # Seg Neutrophils # Man Monocytes # (Manual) PT INR Activated Clotting Time 142 H 169 H 175 H POC ABG pH POC ABG pCO2 POC ABG pO2 Potassium Chloride Carbon Dioxide BUN Creatinine Glucose POC Glucose Calcium Total Creatine Kinase CK-MB (CK-2) CK-MB (CK-2) Rel Index Troponin T C-Reactive Protein Total Protein Albumin Triglycerides Ur Specific [place] 03/29/17 03/29/17 03/29/17 14:50 15:18 19:52 WBC MCV MCH Plt Count Lymph % (Auto) Lymph # Seg Neutrophils % Lymphocytes % (Manual) Monocytes % (Manual) Nucleated RBC % Seg Neutrophils # Seg Neutrophils # Man Monocytes # (Manual) PT INR Activated Clotting Time 175 H POC ABG pH 7.293 L POC ABG pCO2 POC ABG pO2 602 H Potassium Chloride Carbon Dioxide BUN Creatinine Glucose POC Glucose Calcium Total Creatine Kinase 7263 H CK-MB (CK-2) > 300.0 H CK-MB (CK-2) Rel Index 4.1 H Troponin T 8.080 H* D C-Reactive Protein Total Protein Albumin Triglycerides 195 H Ur Specific [place] 03/30/17 03/30/17 03/30/17 03:50 03:50 06:19 WBC 19.5 H MCV MCH Plt Count Lymph % (Auto) Lymph # Seg Neutrophils % Lymphocytes % (Manual) 7.0 L Monocytes % (Manual) Nucleated RBC % Seg Neutrophils # Seg Neutrophils # Man 12.7 H Monocytes # (Manual) 1.4 H PT INR Activated Clotting Time POC ABG pH POC ABG pCO2 28.2 L POC ABG pO2 108 H Potassium Chloride 108.9 H Carbon Dioxide 15 L BUN 25 H Creatinine Glucose 158 H POC Glucose Calcium 8.1 L Total Creatine Kinase 7963 H CK-MB (CK-2) > 300.0 H CK-MB (CK-2) Rel Index Troponin T 6.850 H* C-Reactive Protein Total Protein Albumin Triglycerides Ur Specific [place] 03/30/17 03/30/17 03/31/17 09:45 16:04 02:19 WBC MCV MCH Plt Count Lymph % (Auto) Lymph # Seg Neutrophils % Lymphocytes % (Manual) Monocytes % (Manual) Nucleated RBC % Seg Neutrophils # Seg Neutrophils # Man Monocytes # (Manual) PT INR Activated Clotting Time POC ABG pH POC ABG pCO2 POC ABG pO2 Potassium Chloride Carbon Dioxide BUN Creatinine Glucose POC Glucose 137 H Calcium Total Creatine Kinase CK-MB (CK-2) CK-MB (CK-2) Rel Index Troponin T C-Reactive Protein 21.80 H Total Protein Albumin Triglycerides Ur Specific [place] 1.031 H 03/31/17 03/31/17 03/31/17 03:57 06:54 09:22 WBC MCV MCH Plt Count Lymph % (Auto) Lymph # Seg Neutrophils % Lymphocytes % (Manual) Monocytes % (Manual) Nucleated RBC % Seg Neutrophils # Seg Neutrophils # Man Monocytes # (Manual) PT INR Activated Clotting Time POC ABG pH 7.475 H POC ABG pCO2 25.4 L POC ABG pO2 62 L Potassium Chloride Carbon Dioxide 19 L BUN 22 H Creatinine 0.6 L Glucose 148 H POC Glucose 143 H Calcium 8.3 L Total Creatine Kinase CK-MB (CK-2) CK-MB (CK-2) Rel Index Troponin T C-Reactive Protein Total Protein Albumin Triglycerides Ur Specific [place] 03/31/17 03/31/17 03/31/17 11:40 17:47 23:38 WBC MCV MCH Plt Count Lymph % (Auto) Lymph # Seg Neutrophils % Lymphocytes % (Manual) Monocytes % (Manual) Nucleated RBC % Seg Neutrophils # Seg Neutrophils # Man Monocytes # (Manual) PT INR Activated Clotting Time POC ABG pH POC ABG pCO2 POC ABG pO2 Potassium Chloride Carbon Dioxide BUN Creatinine Glucose POC Glucose 127 H 137 H 148 H Calcium Total Creatine Kinase CK-MB (CK-2) CK-MB (CK-2) Rel Index Troponin T C-Reactive Protein Total Protein Albumin Triglycerides Ur Specific [place] 04/01/17 04/01/17 04/01/17 04:29 05:01 11:54 WBC MCV MCH Plt Count Lymph % (Auto) Lymph # Seg Neutrophils % Lymphocytes % (Manual) Monocytes % (Manual) Nucleated RBC % Seg Neutrophils # Seg Neutrophils # Man Monocytes # (Manual) PT INR Activated Clotting Time POC ABG pH 7.513 H POC ABG pCO2 22.1 L POC ABG pO2 64 L Potassium Chloride Carbon Dioxide BUN Creatinine Glucose POC Glucose 121 H Calcium Total Creatine Kinase CK-MB (CK-2) CK-MB (CK-2) Rel Index Troponin T C-Reactive Protein Total Protein Albumin Triglycerides 151 H Ur Specific [place] 04/01/17 04/02/17 04/02/17 18:17 00:11 04:52 WBC MCV MCH Plt Count Lymph % (Auto) Lymph # Seg Neutrophils % Lymphocytes % (Manual) Monocytes % (Manual) Nucleated RBC % Seg Neutrophils # Seg Neutrophils # Man Monocytes # (Manual) PT INR Activated Clotting Time POC ABG pH 7.524 H POC ABG pCO2 25.5 L POC ABG pO2 66 L Potassium Chloride Carbon Dioxide BUN Creatinine Glucose POC Glucose 117 H 122 H Calcium Total Creatine Kinase CK-MB (CK-2) CK-MB (CK-2) Rel Index Troponin T C-Reactive Protein Total Protein Albumin Triglycerides Ur Specific [place] 04/02/17 04/02/17 04/02/17 05:18 10:41 12:19 WBC MCV MCH Plt Count Lymph % (Auto) Lymph # Seg Neutrophils % Lymphocytes % (Manual) Monocytes % (Manual) Nucleated RBC % Seg Neutrophils # Seg Neutrophils # Man Monocytes # (Manual) PT INR Activated Clotting Time POC ABG pH 7.534 H POC ABG pCO2 27.4 L POC ABG pO2 Potassium Chloride Carbon Dioxide BUN Creatinine Glucose POC Glucose 132 H 129 H Calcium Total Creatine Kinase CK-MB (CK-2) CK-MB (CK-2) Rel Index Troponin T C-Reactive Protein Total Protein Albumin Triglycerides Ur Specific [place] 04/02/17 04/03/17 04/03/17 18:05 00:08 05:09 WBC MCV MCH Plt Count Lymph % (Auto) Lymph # Seg Neutrophils % Lymphocytes % (Manual) Monocytes % (Manual) Nucleated RBC % Seg Neutrophils # Seg Neutrophils # Man Monocytes # (Manual) PT INR Activated Clotting Time POC ABG pH 7.455 H POC ABG pCO2 33.2 L POC ABG pO2 120 H Potassium Chloride Carbon Dioxide BUN Creatinine Glucose POC Glucose 136 H 128 H Calcium Total Creatine Kinase CK-MB (CK-2) CK-MB (CK-2) Rel Index Troponin T C-Reactive Protein Total Protein Albumin Triglycerides Ur Specific [place] 04/03/17 04/03/17 04/03/17 06:32 11:54 12:16 WBC 11.9 H MCV MCH Plt Count 125 L Lymph % (Auto) 4.8 L Lymph # 0.6 L Seg Neutrophils % 86.7 H Lymphocytes % (Manual) Monocytes % (Manual) Nucleated RBC % Seg Neutrophils # 10.3 H Seg Neutrophils # Man Monocytes # (Manual) PT INR Activated Clotting Time POC ABG pH POC ABG pCO2 POC ABG pO2 Potassium Chloride Carbon Dioxide BUN Creatinine Glucose POC Glucose 138 H 143 H Calcium Total Creatine Kinase CK-MB (CK-2) CK-MB (CK-2) Rel Index Troponin T C-Reactive Protein Total Protein Albumin Triglycerides Ur Specific [place] 04/03/17 04/03/17 04/04/17 17:33 23:59 04:34 WBC MCV MCH Plt Count Lymph % (Auto) Lymph # Seg Neutrophils % Lymphocytes % (Manual) Monocytes % (Manual) Nucleated RBC % Seg Neutrophils # Seg Neutrophils # Man Monocytes # (Manual) PT INR Activated Clotting Time POC ABG pH 7.457 H POC ABG pCO2 29.8 L POC ABG pO2 76 L Potassium Chloride Carbon Dioxide BUN Creatinine Glucose POC Glucose 130 H 155 H Calcium Total Creatine Kinase CK-MB (CK-2) CK-MB (CK-2) Rel Index Troponin T C-Reactive Protein Total Protein Albumin Triglycerides Ur Specific [place] 04/04/17 04/04/17 04/04/17 05:27 12:22 18:18 WBC MCV MCH Plt Count Lymph % (Auto) Lymph # Seg Neutrophils % Lymphocytes % (Manual) Monocytes % (Manual) Nucleated RBC % Seg Neutrophils # Seg Neutrophils # Man Monocytes # (Manual) PT INR Activated Clotting Time POC ABG pH POC ABG pCO2 POC ABG pO2 Potassium Chloride Carbon Dioxide BUN Creatinine Glucose POC Glucose 164 H 146 H 130 H Calcium Total Creatine Kinase CK-MB (CK-2) CK-MB (CK-2) Rel Index Troponin T C-Reactive Protein Total Protein Albumin Triglycerides Ur Specific [place] 04/05/17 04/05/17 04/05/17 04:43 05:28 11:36 WBC MCV MCH Plt Count Lymph % (Auto) Lymph # Seg Neutrophils % Lymphocytes % (Manual) Monocytes % (Manual) Nucleated RBC % Seg Neutrophils # Seg Neutrophils # Man Monocytes # (Manual) PT INR Activated Clotting Time POC ABG pH 7.479 H POC ABG pCO2 33.5 L POC ABG pO2 76 L Potassium Chloride Carbon Dioxide BUN Creatinine Glucose POC Glucose 145 H 136 H Calcium Total Creatine Kinase CK-MB (CK-2) CK-MB (CK-2) Rel Index Troponin T C-Reactive Protein Total Protein Albumin Triglycerides Ur Specific [place]
[2017-04-05] MEDS: DIPRIVAN 10 MG/ML 1,000 MG/100 ML BOTTLE IV SCH ×2 (16:20→20:06)
[2017-04-05] MEDS: ZYVOX 600MG/300ML 600 MG/300 ML BAG IV SCH ×2 (16:22→21:46)
[2017-04-05] MEDS ORDERED: LOPRESSOR IV PRN (16:52)
--- NOTE | 2017-04-05 18:29 | Progress Note ---
Assessment and Plan Assessment and plan: 46 YO Male with No PMH presents to ED for evaluation. Pt is unresponsive and unable to provide history. Pt history taken from ED staff and EMS. Pt was at work today and suddenly passed out around 1050 hrs-which was witnessed by patients coworkers. EMS notified, and upon arrival the patient was found to have V Fib. Pt treated IAW ACLS protocol. The patient was given 3 defibrillations, 2 rounds of epinephrine, Narcan, and a half amp of sodium bicarbonate. Pt found to be in respiratory distress and was intubated and placed on vent support. 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 Acute Respiratory failure requiring MV >96 hours Pt intubated, Placed on vent support, Anterior STEMI sp cardiac arrest case dw cardiology Emergency cath protocol called upon arrival, we found 100% occlusion of the LAD in its prox-mid segment. Successful primari PCI-angioplasty and 3.0-3.5mm BM stents deployed. LAD flow restored-excellent result. 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 He likely had aprolonged period of time without perfusion to his brain. We will continue to monitor his mental status, -His prognosis is grim with very little chance of recovery, this has been conveyed to the family. We would recommend hospice and withdrawal of life supports versus trach and SNIF placement. This was dw family, Critical care physician and neurologist also conveyed the same information to the family unable to go to [facility] as has no insurance -medicare disability application in process of being filled out by family -recommend hospice at this point -case angela Neurologist, Dr Bradley and Dr Perkins The high probability of a clinically significant, sudden or life threatening deterioration of the [Pulmonary, cardiac, renal] system(s) required my full and direct attention, intervention and personal management. The aggregate critical care time was [65] minutes. This time is in addition to time spent performing reported procedures but includes the following: [x] Data Review and interpretation [x] Patient assessment and monitoring of vital signs [x] Documentation [x] Medication orders and management History Interval history: Patient is nonresponsive, lacks most reflexes, had fever, no vomiting, no agitation Hospitalist Physical - Physical exam Narrative exam: General.: Comatose HEENT: Moist mucous membranes, no LAD, Neck: supple Cardiac: S1-S2 heard Lungs: clear to auscultation bilaterally Abdomen: soft , nontender, nondistended, bowel sounds positive Extremities: no edema clubbing or cyanosis Skin: no rash or lesions Neurologic: Patient is in deep coma, lacks most reflexes, at this time, only has gag reflexs, corneal reflex is absent and decerebrate posturing, pupils are fixed and non reactive, lacks all other reflexes, opens eyes spontaneously - Constitutional Vitals: Temp Pulse Resp BP Pulse Ox 101.3 F H 107 H 27 H 95/58 96 04/05/17 12:00 04/05/17 16:29 04/05/17 16:01 04/05/17 17:40 04/05/17 16:29 General appearance: Present: severe distress Results - Labs CBC & Chem 7: 04/03/17 12:16 03/31/17 09:22 Labs: Laboratory Last Values WBC 11.9 K/mm3 (4.5-11.0) H 04/03/17 12:16 RBC 3.82 M/mm3 (3.65-5.03) 04/03/17 12:16 Hgb 12.1 gm/dl (11.8-15.2) 04/03/17 12:16 Hct 35.7 % (35.5-45.6) 04/03/17 12:16 MCV 94 fl (84-94) 04/03/17 12:16 MCH 32 pg (28-32) 04/03/17 12:16 MCHC 34 % (32-34) 04/03/17 12:16 RDW 14.4 % (13.2-15.2) 04/03/17 12:16 Plt Count 125 K/mm3 (140-440) L 04/03/17 12:16 Lymph % (Auto) 4.8 % (13.4-35.0) L 04/03/17 12:16 [place] % (Auto) 6.3 % (0.0-7.3) 04/03/17 12:16 Eos % (Auto) 1.7 % (0.0-4.3) 04/03/17 12:16 Baso % (Auto) 0.5 % (0.0-1.8) 04/03/17 12:16 Lymph # 0.6 K/mm3 (1.2-5.4) L 04/03/17 12:16 [place] # 0.7 K/mm3 (0.0-0.8) 04/03/17 12:16 Eos # 0.2 K/mm3 (0.0-0.4) 04/03/17 12:16 Baso # 0.1 K/mm3 (0.0-0.1) 04/03/17 12:16 Add Manual Diff Complete 03/30/17 03:50 Total Counted 100 03/30/17 03:50 Seg Neutrophils % 86.7 % (40.0-70.0) H 04/03/17 12:16 Seg Neuts % (Manual) 65.0 % (40.0-70.0) 03/30/17 03:50 Band Neutrophils % 17.0 % 03/30/17 03:50 Lymphocytes % (Manual) 7.0 % (13.4-35.0) L 03/30/17 03:50 Reactive Lymphs % (Man) 0 % 03/30/17 03:50 Monocytes % (Manual) 7.0 % (0.0-7.3) 03/30/17 03:50 Eosinophils % (Manual) 0 % (0.0-4.3) 03/30/17 03:50 Basophils % (Manual) 0 % (0.0-1.8) 03/30/17 03:50 Metamyelocytes % 4.0 % 03/30/17 03:50 Myelocytes % 0 % 03/30/17 03:50 Promyelocytes % 0 % 03/30/17 03:50 Blast Cells % 0 % 03/30/17 03:50 Nucleated RBC % Not Reportable 03/30/17 03:50 Seg Neutrophils # 10.3 K/mm3 (1.8-7.7) H 04/03/17 12:16 Seg Neutrophils # Man 12.7 K/mm3 (1.8-7.7) H 03/30/17 03:50 Band Neutrophils # 3.3 K/mm3 03/30/17 03:50 Lymphocytes # (Manual) 1.4 K/mm3 (1.2-5.4) 03/30/17 03:50 Abs React Lymphs (Man) 0.0 K/mm3 03/30/17 03:50 Monocytes # (Manual) 1.4 K/mm3 (0.0-0.8) H 03/30/17 03:50 Eosinophils # (Manual) 0.0 K/mm3 (0.0-0.4) 03/30/17 03:50 Basophils # (Manual) 0.0 K/mm3 (0.0-0.1) 03/30/17 03:50 Metamyelocytes # 0.8 K/mm3 03/30/17 03:50 Myelocytes # 0.0 K/mm3 03/30/17 03:50 Promyelocytes # 0.0 K/mm3 03/30/17 03:50 Blast Cells # 0.0 K/mm3 03/30/17 03:50 WBC Morphology Not Reportable 03/30/17 03:50 Hypersegmented Neuts Not Reportable 03/30/17 03:50 Hyposegmented Neuts Not Reportable 03/30/17 03:50 Hypogranular Neuts Not Reportable 03/30/17 03:50 Smudge Cells Not Reportable 03/30/17 03:50 Toxic Granulation Not Reportable 03/30/17 03:50 Toxic Vacuolation Not Reportable 03/30/17 03:50 Dohle Bodies Not Reportable 03/30/17 03:50 Pelger-Huet Anomaly Not Reportable 03/30/17 03:50 Sherry Rods Not Reportable 03/30/17 03:50 Platelet Estimate Appears normal 03/30/17 03:50 Clumped Platelets Not Reportable 03/30/17 03:50 Plt Clumps, EDTA Not Reportable 03/30/17 03:50 Large Platelets Not Reportable 03/30/17 03:50 Giant Platelets Not Reportable 03/30/17 03:50 Platelet Satelliting Not Reportable 03/30/17 03:50 Plt Morphology Comment Not Reportable 03/30/17 03:50 RBC Morphology Not Reportable 03/30/17 03:50 Dimorphic RBCs Not Reportable 03/30/17 03:50 Polychromasia Not Reportable 03/30/17 03:50 Hypochromasia Not Reportable 03/30/17 03:50 Poikilocytosis Not Reportable 03/30/17 03:50 Anisocytosis Few 03/30/17 03:50 Microcytosis Not Reportable 03/30/17 03:50 Macrocytosis Not Reportable 03/30/17 03:50 Spherocytes Not Reportable 03/30/17 03:50 Pappenheimer Bodies Not Reportable 03/30/17 03:50 Sickle Cells Not Reportable 03/30/17 03:50 Target Cells Not Reportable 03/30/17 03:50 Tear Drop Cells Not Reportable 03/30/17 03:50 Ovalocytes Not Reportable 03/30/17 03:50 Helmet Cells Not Reportable 03/30/17 03:50 [place] Bodies Not Reportable 03/30/17 03:50 [place] Rings Not Reportable 03/30/17 03:50 Nusrat Cells Not Reportable 03/30/17 03:50 Bite Cells Not Reportable 03/30/17 03:50 Crenated Cell Not Reportable 03/30/17 03:50 Elliptocytes Not Reportable 03/30/17 03:50 Acanthocytes (Spur) Not Reportable 03/30/17 03:50 Rouleaux Not Reportable 03/30/17 03:50 Hemoglobin C Crystals Not Reportable 03/30/17 03:50 Schistocytes Not Reportable 03/30/17 03:50 Malaria parasites Not Reportable 03/30/17 03:50 Jermaine Bodies Not Reportable 03/30/17 03:50 Hem Pathologist Commnt No 03/30/17 03:50 PT 15.8 Sec. (12.2-14.9) H 03/29/17 11:35 INR 1.20 (0.87-1.13) H 03/29/17 11:35 APTT 34.8 Sec. (24.2-36.6) 03/29/17 11:35 Activated Clotting Time 92 (74-137) 03/29/17 17:47 POC ABG pH 7.479 (7.35-7.45) H 04/05/17 04:43 POC ABG pCO2 33.5 (35-45) L 04/05/17 04:43 POC ABG pO2 76 (80-105) L 04/05/17 04:43 POC ABG HCO3 24.8 04/05/17 04:43 POC ABG Total CO2 26 04/05/17 04:43 POC ABG O2 Sat 96 04/05/17 04:43 POC ABG Base Excess 1 04/05/17 04:43 FiO2 35 % 04/05/17 04:43 Sodium 144 mmol/L (137-145) 03/31/17 09:22 Potassium 3.6 mmol/L (3.6-5.0) 03/31/17 09:22 Chloride 106.5 mmol/L (98-107) 03/31/17 09:22 Carbon Dioxide 19 mmol/L (22-30) L 03/31/17 09:22 Anion Gap 22 mmol/L 03/31/17 09:22 BUN 22 mg/dL (9-20) H 03/31/17 09:22 Creatinine 0.6 mg/dL (0.8-1.5) L 03/31/17 09:22 Estimated GFR > 60 ml/min 03/31/17 09:22 BUN/Creatinine Ratio 37 % 03/31/17 09:22 Glucose 148 mg/dL (75-100) H 03/31/17 09:22 POC Glucose 136 (70-105) H 04/05/17 11:36 Calcium 8.3 mg/dL (8.4-10.2) L 03/31/17 09:22 Total Bilirubin 0.50 mg/dL (0.1-1.2) 03/29/17 11:35 AST 32 units/L (5-40) 03/29/17 11:35 ALT 25 units/L (7-56) 03/29/17 11:35 Alkaline Phosphatase 112 units/L (35-129) 03/29/17 11:35 Total Creatine Kinase 7963 units/L (55-170) H 03/30/17 03:50 CK-MB (CK-2) > 300.0 ng/mL (0.0-4.0) H 03/30/17 03:50 CK-MB (CK-2) Rel Index 3.7 (0-4) 03/30/17 03:50 Troponin T 6.850 ng/mL (0.00-0.029) H* 03/30/17 03:50 C-Reactive Protein 21.80 mg/dL (0.00-1.30) H 03/30/17 16:04 Total Protein 6.1 g/dL (6.3-8.2) L 03/29/17 11:35 Albumin 3.5 g/dL (3.9-5) L 03/29/17 11:35 Albumin/Globulin Ratio 1.3 % 03/29/17 11:35 Triglycerides 151 mg/dL (2-149) H 04/01/17 04:29 Cholesterol 164 mg/dL (50-199) 03/29/17 19:52 LDL Cholesterol Direct 81 mg/dL (50-130) 03/29/17 19:52 HDL Cholesterol 44 mg/dL (40-59) 03/29/17 19:52 Cholesterol/HDL Ratio 3.72 % 03/29/17 19:52 Urine Color Yellow (Yellow) 03/30/17 09:45 Urine Turbidity Turbid (Clear) 03/30/17 09:45 Urine pH 5.0 (5.0-7.0) 03/30/17 09:45 Ur Specific [place] 1.031 (1.003-1.030) H 03/30/17 09:45 Urine Protein 30 mg/dl mg/dL (Negative) 03/30/17 09:45 Urine Glucose (UA) Neg mg/dL (Negative) 03/30/17 09:45 Urine Ketones 20 mg/dL (Negative) 03/30/17 09:45 Urine Blood Mod (Negative) 03/30/17 09:45 Urine Nitrite Neg (Negative) 03/30/17 09:45 Urine Bilirubin Neg (Negative) 03/30/17 09:45 Urine Urobilinogen < 2.0 mg/dL (<2.0) 03/30/17 09:45 Ur Leukocyte Esterase Tr (Negative) 03/30/17 09:45 Urine WBC (Auto) 1.0 /HPF (0.0-6.0) 03/30/17 09:45 Urine RBC (Auto) 14.0 /HPF (0.0-6.0) 03/30/17 09:45 Amorphous Crystals 1+ 03/30/17 09:45 Urine Opiates Screen Presumptive negative 03/30/17 09:45 Urine Methadone Screen Presumptive negative 03/30/17 09:45 Ur Barbiturates Screen Presumptive negative 03/30/17 09:45 Ur Phencyclidine Scrn Presumptive negative 03/30/17 09:45 Ur Amphetamines Screen Presumptive positive 03/30/17 09:45 U Benzodiazepines Scrn Presumptive positive 03/30/17 09:45 Urine Cocaine Screen Presumptive negative 03/30/17 09:45 U Marijuana (THC) Screen Presumptive negative 03/30/17 09:45 Drugs of Abuse Note Disclamer 03/30/17 09:45 Blood Type O POSITIVE 03/29/17 11:35 Antibody Screen Negative 03/29/17 11:35
--- NOTE | 2017-04-05 20:29 | Progress Note ---
Subjective Date of service: 04/05/17 Principal diagnosis: septic shock Interval history: Reviewed today's EEG showing slowing partly from sweat artifact but no focality and no seizure activity. May represent brain since no definite brain activity though increased noise near the end. Discussed with sister Divya and two other sisters and a niece and reiterated poor prognosis as also mentioned in Dr. Bradley's note but he saw him at a time when they were not there and no mention of his reviewing the EEG. Divya will call his office to see him and ask about the EEG. She prefers to wait till edema is gone (I estimated April 09) to see if still not responding. She asked about tracheotomy, I said some say one can remain intubated without tracheotomy for up to 4 weeks but more chance of infection, tracheotomy would not preclude later withdrawal of care I said. I suggested my neurology service stop seeing him and only give further opinion later if specifically requested. I explained no need for me to see him today. I suggested discussing Code Status with hospitalist since cardiac arrest I think should not be treated, could be a sign of more severe effects of edema. Objective - Vital Sign Vital Signs - 12hr 04/05/17 04/05/17 04/05/17 08:30 09:00 09:30 Temperature Pulse Rate 114 H 111 H 110 H Respiratory 29 H 21 28 H Rate Blood Pressure 98/62 98/65 113/67 O2 Sat by Pulse 97 96 97 Oximetry 04/05/17 04/05/17 04/05/17 10:00 10:30 11:00 Temperature Pulse Rate 113 H 107 H 123 H Respiratory 12 27 H 30 H Rate Blood Pressure 111/64 105/63 116/66 O2 Sat by Pulse 96 97 98 Oximetry 04/05/17 04/05/17 04/05/17 11:30 11:33 12:00 Temperature 101.3 F H Pulse Rate 107 H 111 H Respiratory 15 31 H Rate Blood Pressure 112/61 113/64 O2 Sat by Pulse 98 96 98 Oximetry 04/05/17 04/05/17 04/05/17 12:29 12:30 13:01 Temperature Pulse Rate 112 H 112 H 112 H Respiratory 16 16 Rate Blood Pressure 117/68 110/60 100/67 O2 Sat by Pulse 97 97 95 Oximetry 04/05/17 04/05/17 04/05/17 13:30 14:01 14:24 Temperature Pulse Rate 152 H 152 H Respiratory 35 H 33 H Rate Blood Pressure 98/65 123/62 100/56 O2 Sat by Pulse 96 96 Oximetry 04/05/17 04/05/17 04/05/17 14:31 15:01 15:31 Temperature Pulse Rate 156 H 116 H 113 H Respiratory 33 H 30 H 27 H Rate Blood Pressure 119/72 119/74 119/74 O2 Sat by Pulse 96 97 97 Oximetry 04/05/17 04/05/17 04/05/17 16:00 16:01 16:29 Temperature 99.7 F H Pulse Rate 106 H 107 H Respiratory 27 H Rate Blood Pressure 119/74 100/59 O2 Sat by Pulse 97 97 96 Oximetry 04/05/17 04/05/17 04/05/17 16:30 17:00 17:30 Temperature Pulse Rate 97 H 95 H 94 H Respiratory 24 21 15 Rate Blood Pressure 103/64 97/59 97/59 O2 Sat by Pulse 98 98 99 Oximetry 04/05/17 04/05/17 04/05/17 17:40 18:00 18:30 Temperature Pulse Rate 94 H 90 Respiratory 20 27 H Rate Blood Pressure 95/58 98/58 95/60 O2 Sat by Pulse 99 99 Oximetry 04/05/17 04/05/17 19:00 19:30 Temperature Pulse Rate 95 H 94 H Respiratory 13 27 H Rate Blood Pressure 107/62 99/62 O2 Sat by Pulse 97 96 Oximetry - Laboratory Findings CBC and BMP: 04/03/17 12:16 03/31/17 09:22 Abnormal Lab Findings: Abnormal Labs 03/29/17 03/29/17 03/29/17 11:35 11:35 11:40 WBC MCV 98 H MCH 33 H Plt Count Lymph % (Auto) Lymph # Seg Neutrophils % Lymphocytes % (Manual) Monocytes % (Manual) 9.0 H Nucleated RBC % 1.0 H Seg Neutrophils # Seg Neutrophils # Man Monocytes # (Manual) 0.9 H PT 15.8 H INR 1.20 H Activated Clotting Time POC ABG pH POC ABG pCO2 POC ABG pO2 Potassium 2.7 L* Chloride 95.3 L Carbon Dioxide 17 L BUN Creatinine Glucose 435 H POC Glucose Calcium Total Creatine Kinase CK-MB (CK-2) CK-MB (CK-2) Rel Index Troponin T C-Reactive Protein Total Protein 6.1 L Albumin 3.5 L Triglycerides Ur Specific [place] 03/29/17 03/29/17 03/29/17 12:34 13:10 13:25 WBC MCV MCH Plt Count Lymph % (Auto) Lymph # Seg Neutrophils % Lymphocytes % (Manual) Monocytes % (Manual) Nucleated RBC % Seg Neutrophils # Seg Neutrophils # Man Monocytes # (Manual) PT INR Activated Clotting Time 142 H 169 H 175 H POC ABG pH POC ABG pCO2 POC ABG pO2 Potassium Chloride Carbon Dioxide BUN Creatinine Glucose POC Glucose Calcium Total Creatine Kinase CK-MB (CK-2) CK-MB (CK-2) Rel Index Troponin T C-Reactive Protein Total Protein Albumin Triglycerides Ur Specific [place] 03/29/17 03/29/17 03/29/17 14:50 15:18 19:52 WBC MCV MCH Plt Count Lymph % (Auto) Lymph # Seg Neutrophils % Lymphocytes % (Manual) Monocytes % (Manual) Nucleated RBC % Seg Neutrophils # Seg Neutrophils # Man Monocytes # (Manual) PT INR Activated Clotting Time 175 H POC ABG pH 7.293 L POC ABG pCO2 POC ABG pO2 602 H Potassium Chloride Carbon Dioxide BUN Creatinine Glucose POC Glucose Calcium Total Creatine Kinase 7263 H CK-MB (CK-2) > 300.0 H CK-MB (CK-2) Rel Index 4.1 H Troponin T 8.080 H* D C-Reactive Protein Total Protein Albumin Triglycerides 195 H Ur Specific [place] 03/30/17 03/30/17 03/30/17 03:50 03:50 06:19 WBC 19.5 H MCV MCH Plt Count Lymph % (Auto) Lymph # Seg Neutrophils % Lymphocytes % (Manual) 7.0 L Monocytes % (Manual) Nucleated RBC % Seg Neutrophils # Seg Neutrophils # Man 12.7 H Monocytes # (Manual) 1.4 H PT INR Activated Clotting Time POC ABG pH POC ABG pCO2 28.2 L POC ABG pO2 108 H Potassium Chloride 108.9 H Carbon Dioxide 15 L BUN 25 H Creatinine Glucose 158 H POC Glucose Calcium 8.1 L Total Creatine Kinase 7963 H CK-MB (CK-2) > 300.0 H CK-MB (CK-2) Rel Index Troponin T 6.850 H* C-Reactive Protein Total Protein Albumin Triglycerides Ur Specific [place] 03/30/17 03/30/17 03/31/17 09:45 16:04 02:19 WBC MCV MCH Plt Count Lymph % (Auto) Lymph # Seg Neutrophils % Lymphocytes % (Manual) Monocytes % (Manual) Nucleated RBC % Seg Neutrophils # Seg Neutrophils # Man Monocytes # (Manual) PT INR Activated Clotting Time POC ABG pH POC ABG pCO2 POC ABG pO2 Potassium Chloride Carbon Dioxide BUN Creatinine Glucose POC Glucose 137 H Calcium Total Creatine Kinase CK-MB (CK-2) CK-MB (CK-2) Rel Index Troponin T C-Reactive Protein 21.80 H Total Protein Albumin Triglycerides Ur Specific [place] 1.031 H 03/31/17 03/31/17 03/31/17 03:57 06:54 09:22 WBC MCV MCH Plt Count Lymph % (Auto) Lymph # Seg Neutrophils % Lymphocytes % (Manual) Monocytes % (Manual) Nucleated RBC % Seg Neutrophils # Seg Neutrophils # Man Monocytes # (Manual) PT INR Activated Clotting Time POC ABG pH 7.475 H POC ABG pCO2 25.4 L POC ABG pO2 62 L Potassium Chloride Carbon Dioxide 19 L BUN 22 H Creatinine 0.6 L Glucose 148 H POC Glucose 143 H Calcium 8.3 L Total Creatine Kinase CK-MB (CK-2) CK-MB (CK-2) Rel Index Troponin T C-Reactive Protein Total Protein Albumin Triglycerides Ur Specific [place] 03/31/17 03/31/17 03/31/17 11:40 17:47 23:38 WBC MCV MCH Plt Count Lymph % (Auto) Lymph # Seg Neutrophils % Lymphocytes % (Manual) Monocytes % (Manual) Nucleated RBC % Seg Neutrophils # Seg Neutrophils # Man Monocytes # (Manual) PT INR Activated Clotting Time POC ABG pH POC ABG pCO2 POC ABG pO2 Potassium Chloride Carbon Dioxide BUN Creatinine Glucose POC Glucose 127 H 137 H 148 H Calcium Total Creatine Kinase CK-MB (CK-2) CK-MB (CK-2) Rel Index Troponin T C-Reactive Protein Total Protein Albumin Triglycerides Ur Specific [place] 04/01/17 04/01/17 04/01/17 04:29 05:01 11:54 WBC MCV MCH Plt Count Lymph % (Auto) Lymph # Seg Neutrophils % Lymphocytes % (Manual) Monocytes % (Manual) Nucleated RBC % Seg Neutrophils # Seg Neutrophils # Man Monocytes # (Manual) PT INR Activated Clotting Time POC ABG pH 7.513 H POC ABG pCO2 22.1 L POC ABG pO2 64 L Potassium Chloride Carbon Dioxide BUN Creatinine Glucose POC Glucose 121 H Calcium Total Creatine Kinase CK-MB (CK-2) CK-MB (CK-2) Rel Index Troponin T C-Reactive Protein Total Protein Albumin Triglycerides 151 H Ur Specific [place] 04/01/17 04/02/17 04/02/17 18:17 00:11 04:52 WBC MCV MCH Plt Count Lymph % (Auto) Lymph # Seg Neutrophils % Lymphocytes % (Manual) Monocytes % (Manual) Nucleated RBC % Seg Neutrophils # Seg Neutrophils # Man Monocytes # (Manual) PT INR Activated Clotting Time POC ABG pH 7.524 H POC ABG pCO2 25.5 L POC ABG pO2 66 L Potassium Chloride Carbon Dioxide BUN Creatinine Glucose POC Glucose 117 H 122 H Calcium Total Creatine Kinase CK-MB (CK-2) CK-MB (CK-2) Rel Index Troponin T C-Reactive Protein Total Protein Albumin Triglycerides Ur Specific [place] 04/02/17 04/02/17 04/02/17 05:18 10:41 12:19 WBC MCV MCH Plt Count Lymph % (Auto) Lymph # Seg Neutrophils % Lymphocytes % (Manual) Monocytes % (Manual) Nucleated RBC % Seg Neutrophils # Seg Neutrophils # Man Monocytes # (Manual) PT INR Activated Clotting Time POC ABG pH 7.534 H POC ABG pCO2 27.4 L POC ABG pO2 Potassium Chloride Carbon Dioxide BUN Creatinine Glucose POC Glucose 132 H 129 H Calcium Total Creatine Kinase CK-MB (CK-2) CK-MB (CK-2) Rel Index Troponin T C-Reactive Protein Total Protein Albumin Triglycerides Ur Specific [place] 04/02/17 04/03/17 04/03/17 18:05 00:08 05:09 WBC MCV MCH Plt Count Lymph % (Auto) Lymph # Seg Neutrophils % Lymphocytes % (Manual) Monocytes % (Manual) Nucleated RBC % Seg Neutrophils # Seg Neutrophils # Man Monocytes # (Manual) PT INR Activated Clotting Time POC ABG pH 7.455 H POC ABG pCO2 33.2 L POC ABG pO2 120 H Potassium Chloride Carbon Dioxide BUN Creatinine Glucose POC Glucose 136 H 128 H Calcium Total Creatine Kinase CK-MB (CK-2) CK-MB (CK-2) Rel Index Troponin T C-Reactive Protein Total Protein Albumin Triglycerides Ur Specific [place] 04/03/17 04/03/17 04/03/17 06:32 11:54 12:16 WBC 11.9 H MCV MCH Plt Count 125 L Lymph % (Auto) 4.8 L Lymph # 0.6 L Seg Neutrophils % 86.7 H Lymphocytes % (Manual) Monocytes % (Manual) Nucleated RBC % Seg Neutrophils # 10.3 H Seg Neutrophils # Man Monocytes # (Manual) PT INR Activated Clotting Time POC ABG pH POC ABG pCO2 POC ABG pO2 Potassium Chloride Carbon Dioxide BUN Creatinine Glucose POC Glucose 138 H 143 H Calcium Total Creatine Kinase CK-MB (CK-2) CK-MB (CK-2) Rel Index Troponin T C-Reactive Protein Total Protein Albumin Triglycerides Ur Specific [place] 04/03/17 04/03/17 04/04/17 17:33 23:59 04:34 WBC MCV MCH Plt Count Lymph % (Auto) Lymph # Seg Neutrophils % Lymphocytes % (Manual) Monocytes % (Manual) Nucleated RBC % Seg Neutrophils # Seg Neutrophils # Man Monocytes # (Manual) PT INR Activated Clotting Time POC ABG pH 7.457 H POC ABG pCO2 29.8 L POC ABG pO2 76 L Potassium Chloride Carbon Dioxide BUN Creatinine Glucose POC Glucose 130 H 155 H Calcium Total Creatine Kinase CK-MB (CK-2) CK-MB (CK-2) Rel Index Troponin T C-Reactive Protein Total Protein Albumin Triglycerides Ur Specific [place] 04/04/17 04/04/17 04/04/17 05:27 12:22 18:18 WBC MCV MCH Plt Count Lymph % (Auto) Lymph # Seg Neutrophils % Lymphocytes % (Manual) Monocytes % (Manual) Nucleated RBC % Seg Neutrophils # Seg Neutrophils # Man Monocytes # (Manual) PT INR Activated Clotting Time POC ABG pH POC ABG pCO2 POC ABG pO2 Potassium Chloride Carbon Dioxide BUN Creatinine Glucose POC Glucose 164 H 146 H 130 H Calcium Total Creatine Kinase CK-MB (CK-2) CK-MB (CK-2) Rel Index Troponin T C-Reactive Protein Total Protein Albumin Triglycerides Ur Specific [place] 04/05/17 04/05/17 04/05/17 04:43 05:28 11:36 WBC MCV MCH Plt Count Lymph % (Auto) Lymph # Seg Neutrophils % Lymphocytes % (Manual) Monocytes % (Manual) Nucleated RBC % Seg Neutrophils # Seg Neutrophils # Man Monocytes # (Manual) PT INR Activated Clotting Time POC ABG pH 7.479 H POC ABG pCO2 33.5 L POC ABG pO2 76 L Potassium Chloride Carbon Dioxide BUN Creatinine Glucose POC Glucose 145 H 136 H Calcium Total Creatine Kinase CK-MB (CK-2) CK-MB (CK-2) Rel Index Troponin T C-Reactive Protein Total Protein Albumin Triglycerides Ur Specific [place]
[2017-04-06] MEDS: LOPRESSOR PO SCH ×3 (01:00→17:31)
[2017-04-06] MEDS: DIPRIVAN 10 MG/ML 1,000 MG/100 ML BOTTLE IV SCH (04:34)
[2017-04-06] MEDS: NITRO-BID 2% TP SCH ×3 (05:30→14:00)
[2017-04-06] MEDS: PLAVIX PO SCH (10:01)
[2017-04-06] MEDS: CORDARONE PO SCH ×2 (10:01→22:04)
[2017-04-06] MEDS: ASPIRIN PR SCH (10:03)
[2017-04-06] MEDS: PROTONIX FEEDTUBE SCH (10:03)
[2017-04-06] MEDS: HEPARIN SUB-Q SCH ×2 (10:05→22:05)
--- NOTE | 2017-04-06 10:12 | Progress Note ---
Assessment and Plan Out of hospital Vfib arrest Hypoxic encephalopathy. Neurology comments noted and appreciate input.Consistent with severe event,poor prognosis STEMI Chest x-rays with residual infiltrate, possibly residual vascular congestion s/p LHC with stent placement Fever. Still active. Central injury ? Sputum culture positive for MRSA.+ infiltratrate RLL per CXR report Recommendations Continue ABX Monitor fever Meet with family previously, - will need trach consult; depending on family decision - agree is reasonable to consider DNR code status, waiting on family to decide Continue vent support Wean off propofol if possible- noted "agitated" per RN when off it Critical care time with a 31 minutes of [id number] evaluation and coordination of care Subjective Date of service: 04/06/17 Principal diagnosis: septic shock Interval history: Intubated on vent support.Sedated Objective Vital Signs - 12hr 04/05/17 04/05/17 04/05/17 22:30 23:00 23:27 Temperature 98.5 F Pulse Rate 92 H 96 H Respiratory 11 L 28 H Rate Blood Pressure 100/61 107/61 O2 Sat by Pulse 98 98 Oximetry 04/05/17 04/06/17 04/06/17 23:30 00:00 00:30 Temperature Pulse Rate 98 H 96 H 102 H Respiratory 13 27 H 29 H Rate Blood Pressure 103/62 105/59 110/63 O2 Sat by Pulse 97 98 97 Oximetry 04/06/17 04/06/17 04/06/17 00:35 01:00 01:30 Temperature Pulse Rate 102 H 98 H 97 H Respiratory 14 11 L Rate Blood Pressure 110/63 106/61 106/62 O2 Sat by Pulse 97 96 97 Oximetry 04/06/17 04/06/17 04/06/17 02:00 02:30 03:00 Temperature Pulse Rate 99 H 99 H 99 H Respiratory 20 27 H 28 H Rate Blood Pressure 105/59 102/59 108/61 O2 Sat by Pulse 97 98 97 Oximetry 04/06/17 04/06/17 04/06/17 03:30 03:31 04:00 Temperature 100.3 F H Pulse Rate 98 H 96 H Respiratory 28 H 18 Rate Blood Pressure 102/57 96/58 O2 Sat by Pulse 97 97 98 Oximetry 04/06/17 04/06/17 04/06/17 04:30 05:00 05:30 Temperature Pulse Rate 108 H 102 H 103 H Respiratory 29 H 30 H 29 H Rate Blood Pressure 90/60 90/63 110/60 O2 Sat by Pulse 97 98 97 Oximetry 04/06/17 04/06/17 04/06/17 06:00 06:30 07:00 Temperature Pulse Rate 102 H 108 H 101 H Respiratory 32 H 30 H Rate Blood Pressure 109/64 119/67 110/63 O2 Sat by Pulse 96 98 97 Oximetry 04/06/17 04/06/17 07:30 08:00 Temperature 99.8 F H Pulse Rate 99 H 110 H Respiratory 16 15 Rate Blood Pressure 110/62 106/63 O2 Sat by Pulse 97 97 Oximetry Eyes: injected, other (pinpoint pupils equal and non reactive) ENT: other (orally intubated, ) Neck: supple, no JVD Effort: normal Ascultation: Bilateral: clear, diminished breath sounds ( ) Percussion: Bilateral: not dull Cardiovascular: regular rate and rhythm Gastrointestinal: hypoactive bowel sounds, other (mild distention) Integumentary: other (multiple tattoos) Extremities: no cyanosis Neurologic: unable to assess, other (no posturing on physical examination and stimulation,irregular breathing) CBC and BMP: 04/03/17 12:16 03/31/17 09:22 ABG, PT/INR, D-dimer: ABG POC ABG pH 7.479 (7.35-7.45) H 04/05/17 04:43 POC ABG pCO2 33.5 (35-45) L 04/05/17 04:43 POC ABG pO2 76 (80-105) L 04/05/17 04:43 POC ABG HCO3 24.8 04/05/17 04:43 POC ABG Total CO2 26 04/05/17 04:43 POC ABG O2 Sat 96 04/05/17 04:43 PT/INR, D-dimer PT 15.8 Sec. (12.2-14.9) H 03/29/17 11:35 INR 1.20 (0.87-1.13) H 03/29/17 11:35 Abnormal lab findings: Abnormal Labs 03/29/17 03/29/17 03/29/17 11:35 11:35 11:40 WBC MCV 98 H MCH 33 H Plt Count Lymph % (Auto) Lymph # Seg Neutrophils % Lymphocytes % (Manual) Monocytes % (Manual) 9.0 H Nucleated RBC % 1.0 H Seg Neutrophils # Seg Neutrophils # Man Monocytes # (Manual) 0.9 H PT 15.8 H INR 1.20 H Activated Clotting Time POC ABG pH POC ABG pCO2 POC ABG pO2 Potassium 2.7 L* Chloride 95.3 L Carbon Dioxide 17 L BUN Creatinine Glucose 435 H POC Glucose Calcium Total Creatine Kinase CK-MB (CK-2) CK-MB (CK-2) Rel Index Troponin T C-Reactive Protein Total Protein 6.1 L Albumin 3.5 L Triglycerides Ur Specific [place] 03/29/17 03/29/17 03/29/17 12:34 13:10 13:25 WBC MCV MCH Plt Count Lymph % (Auto) Lymph # Seg Neutrophils % Lymphocytes % (Manual) Monocytes % (Manual) Nucleated RBC % Seg Neutrophils # Seg Neutrophils # Man Monocytes # (Manual) PT INR Activated Clotting Time 142 H 169 H 175 H POC ABG pH POC ABG pCO2 POC ABG pO2 Potassium Chloride Carbon Dioxide BUN Creatinine Glucose POC Glucose Calcium Total Creatine Kinase CK-MB (CK-2) CK-MB (CK-2) Rel Index Troponin T C-Reactive Protein Total Protein Albumin Triglycerides Ur Specific [place] 03/29/17 03/29/17 03/29/17 14:50 15:18 19:52 WBC MCV MCH Plt Count Lymph % (Auto) Lymph # Seg Neutrophils % Lymphocytes % (Manual) Monocytes % (Manual) Nucleated RBC % Seg Neutrophils # Seg Neutrophils # Man Monocytes # (Manual) PT INR Activated Clotting Time 175 H POC ABG pH 7.293 L POC ABG pCO2 POC ABG pO2 602 H Potassium Chloride Carbon Dioxide BUN Creatinine Glucose POC Glucose Calcium Total Creatine Kinase 7263 H CK-MB (CK-2) > 300.0 H CK-MB (CK-2) Rel Index 4.1 H Troponin T 8.080 H* D C-Reactive Protein Total Protein Albumin Triglycerides 195 H Ur Specific [place] 03/30/17 03/30/17 03/30/17 03:50 03:50 06:19 WBC 19.5 H MCV MCH Plt Count Lymph % (Auto) Lymph # Seg Neutrophils % Lymphocytes % (Manual) 7.0 L Monocytes % (Manual) Nucleated RBC % Seg Neutrophils # Seg Neutrophils # Man 12.7 H Monocytes # (Manual) 1.4 H PT INR Activated Clotting Time POC ABG pH POC ABG pCO2 28.2 L POC ABG pO2 108 H Potassium Chloride 108.9 H Carbon Dioxide 15 L BUN 25 H Creatinine Glucose 158 H POC Glucose Calcium 8.1 L Total Creatine Kinase 7963 H CK-MB (CK-2) > 300.0 H CK-MB (CK-2) Rel Index Troponin T 6.850 H* C-Reactive Protein Total Protein Albumin Triglycerides Ur Specific [place] 03/30/17 03/30/17 03/31/17 09:45 16:04 02:19 WBC MCV MCH Plt Count Lymph % (Auto) Lymph # Seg Neutrophils % Lymphocytes % (Manual) Monocytes % (Manual) Nucleated RBC % Seg Neutrophils # Seg Neutrophils # Man Monocytes # (Manual) PT INR Activated Clotting Time POC ABG pH POC ABG pCO2 POC ABG pO2 Potassium Chloride Carbon Dioxide BUN Creatinine Glucose POC Glucose 137 H Calcium Total Creatine Kinase CK-MB (CK-2) CK-MB (CK-2) Rel Index Troponin T C-Reactive Protein 21.80 H Total Protein Albumin Triglycerides Ur Specific [place] 1.031 H 03/31/17 03/31/17 03/31/17 03:57 06:54 09:22 WBC MCV MCH Plt Count Lymph % (Auto) Lymph # Seg Neutrophils % Lymphocytes % (Manual) Monocytes % (Manual) Nucleated RBC % Seg Neutrophils # Seg Neutrophils # Man Monocytes # (Manual) PT INR Activated Clotting Time POC ABG pH 7.475 H POC ABG pCO2 25.4 L POC ABG pO2 62 L Potassium Chloride Carbon Dioxide 19 L BUN 22 H Creatinine 0.6 L Glucose 148 H POC Glucose 143 H Calcium 8.3 L Total Creatine Kinase CK-MB (CK-2) CK-MB (CK-2) Rel Index Troponin T C-Reactive Protein Total Protein Albumin Triglycerides Ur Specific [place] 03/31/17 03/31/17 03/31/17 11:40 17:47 23:38 WBC MCV MCH Plt Count Lymph % (Auto) Lymph # Seg Neutrophils % Lymphocytes % (Manual) Monocytes % (Manual) Nucleated RBC % Seg Neutrophils # Seg Neutrophils # Man Monocytes # (Manual) PT INR Activated Clotting Time POC ABG pH POC ABG pCO2 POC ABG pO2 Potassium Chloride Carbon Dioxide BUN Creatinine Glucose POC Glucose 127 H 137 H 148 H Calcium Total Creatine Kinase CK-MB (CK-2) CK-MB (CK-2) Rel Index Troponin T C-Reactive Protein Total Protein Albumin Triglycerides Ur Specific [place] 0104/01/17 04/01/17 04:29 05:01 11:54 WBC MCV MCH Plt Count Lymph % (Auto) Lymph # Seg Neutrophils % Lymphocytes % (Manual) Monocytes % (Manual) Nucleated RBC % Seg Neutrophils # Seg Neutrophils # Man Monocytes # (Manual) PT INR Activated Clotting Time POC ABG pH 7.513 H POC ABG pCO2 22.1 L POC ABG pO2 64 L Potassium Chloride Carbon Dioxide BUN Creatinine Glucose POC Glucose 121 H Calcium Total Creatine Kinase CK-MB (CK-2) CK-MB (CK-2) Rel Index Troponin T C-Reactive Protein Total Protein Albumin Triglycerides 151 H Ur Specific [place] 04/01/17 04/02/17 04/02/17 18:17 00:11 04:52 WBC MCV MCH Plt Count Lymph % (Auto) Lymph # Seg Neutrophils % Lymphocytes % (Manual) Monocytes % (Manual) Nucleated RBC % Seg Neutrophils # Seg Neutrophils # Man Monocytes # (Manual) PT INR Activated Clotting Time POC ABG pH 7.524 H POC ABG pCO2 25.5 L POC ABG pO2 66 L Potassium Chloride Carbon Dioxide BUN Creatinine Glucose POC Glucose 117 H 122 H Calcium Total Creatine Kinase CK-MB (CK-2) CK-MB (CK-2) Rel Index Troponin T C-Reactive Protein Total Protein Albumin Triglycerides Ur Specific [place] 04/02/17 04/02/17 04/02/17 05:18 10:41 12:19 WBC MCV MCH Plt Count Lymph % (Auto) Lymph # Seg Neutrophils % Lymphocytes % (Manual) Monocytes % (Manual) Nucleated RBC % Seg Neutrophils # Seg Neutrophils # Man Monocytes # (Manual) PT INR Activated Clotting Time POC ABG pH 7.534 H POC ABG pCO2 27.4 L POC ABG pO2 Potassium Chloride Carbon Dioxide BUN Creatinine Glucose POC Glucose 132 H 129 H Calcium Total Creatine Kinase CK-MB (CK-2) CK-MB (CK-2) Rel Index Troponin T C-Reactive Protein Total Protein Albumin Triglycerides Ur Specific [place] 04/02/17 04/03/17 04/03/17 18:05 00:08 05:09 WBC MCV MCH Plt Count Lymph % (Auto) Lymph # Seg Neutrophils % Lymphocytes % (Manual) Monocytes % (Manual) Nucleated RBC % Seg Neutrophils # Seg Neutrophils # Man Monocytes # (Manual) PT INR Activated Clotting Time POC ABG pH 7.455 H POC ABG pCO2 33.2 L POC ABG pO2 120 H Potassium Chloride Carbon Dioxide BUN Creatinine Glucose POC Glucose 136 H 128 H Calcium Total Creatine Kinase CK-MB (CK-2) CK-MB (CK-2) Rel Index Troponin T C-Reactive Protein Total Protein Albumin Triglycerides Ur Specific [place] 04/03/17 04/03/17 04/03/17 06:32 11:54 12:16 WBC 11.9 H MCV MCH Plt Count 125 L Lymph % (Auto) 4.8 L Lymph # 0.6 L Seg Neutrophils % 86.7 H Lymphocytes % (Manual) Monocytes % (Manual) Nucleated RBC % Seg Neutrophils # 10.3 H Seg Neutrophils # Man Monocytes # (Manual) PT INR Activated Clotting Time POC ABG pH POC ABG pCO2 POC ABG pO2 Potassium Chloride Carbon Dioxide BUN Creatinine Glucose POC Glucose 138 H 143 H Calcium Total Creatine Kinase CK-MB (CK-2) CK-MB (CK-2) Rel Index Troponin T C-Reactive Protein Total Protein Albumin Triglycerides Ur Specific [place] 04/03/17 04/03/17 04/04/17 17:33 23:59 04:34 WBC MCV MCH Plt Count Lymph % (Auto) Lymph # Seg Neutrophils % Lymphocytes % (Manual) Monocytes % (Manual) Nucleated RBC % Seg Neutrophils # Seg Neutrophils # Man Monocytes # (Manual) PT INR Activated Clotting Time POC ABG pH 7.457 H POC ABG pCO2 29.8 L POC ABG pO2 76 L Potassium Chloride Carbon Dioxide BUN Creatinine Glucose POC Glucose 130 H 155 H Calcium Total Creatine Kinase CK-MB (CK-2) CK-MB (CK-2) Rel Index Troponin T C-Reactive Protein Total Protein Albumin Triglycerides Ur Specific [place] 04/04/17 04/04/17 04/04/17 05:27 12:22 18:18 WBC MCV MCH Plt Count Lymph % (Auto) Lymph # Seg Neutrophils % Lymphocytes % (Manual) Monocytes % (Manual) Nucleated RBC % Seg Neutrophils # Seg Neutrophils # Man Monocytes # (Manual) PT INR Activated Clotting Time POC ABG pH POC ABG pCO2 POC ABG pO2 Potassium Chloride Carbon Dioxide BUN Creatinine Glucose POC Glucose 164 H 146 H 130 H Calcium Total Creatine Kinase CK-MB (CK-2) CK-MB (CK-2) Rel Index Troponin T C-Reactive Protein Total Protein Albumin Triglycerides Ur Specific [place] 04/05/17 04/05/17 04/05/17 04:43 05:28 11:36 WBC MCV MCH Plt Count Lymph % (Auto) Lymph # Seg Neutrophils % Lymphocytes % (Manual) Monocytes % (Manual) Nucleated RBC % Seg Neutrophils # Seg Neutrophils # Man Monocytes # (Manual) PT INR Activated Clotting Time POC ABG pH 7.479 H POC ABG pCO2 33.5 L POC ABG pO2 76 L Potassium Chloride Carbon Dioxide BUN Creatinine Glucose POC Glucose 145 H 136 H Calcium Total Creatine Kinase CK-MB (CK-2) CK-MB (CK-2) Rel Index Troponin T C-Reactive Protein Total Protein Albumin Triglycerides Ur Specific [place] 04/05/17 04/06/17 04/06/17 17:58 00:16 05:26 WBC MCV MCH Plt Count Lymph % (Auto) Lymph # Seg Neutrophils % Lymphocytes % (Manual) Monocytes % (Manual) Nucleated RBC % Seg Neutrophils # Seg Neutrophils # Man Monocytes # (Manual) PT INR Activated Clotting Time POC ABG pH POC ABG pCO2 POC ABG pO2 Potassium Chloride Carbon Dioxide BUN Creatinine Glucose POC Glucose 130 H 159 H 146 H Calcium Total Creatine Kinase CK-MB (CK-2) CK-MB (CK-2) Rel Index Troponin T C-Reactive Protein Total Protein Albumin Triglycerides Ur Specific [place]
[2017-04-06] MEDS: ZESTRIL PO SCH (10:20)
--- NOTE | 2017-04-06 11:38 | Progress Note ---
Assessment and Plan Assessment and plan: 46 YO Male with No PMH presents to ED for evaluation. Pt is unresponsive and unable to provide history. Pt history taken from ED staff and EMS. Pt was at work today and suddenly passed out around 1050 hrs-which was witnessed by patients coworkers. EMS notified, and upon arrival the patient was found to have V Fib. Pt treated IAW ACLS protocol. The patient was given 3 defibrillations, 2 rounds of epinephrine, Narcan, and a half amp of sodium bicarbonate. Pt found to be in respiratory distress and was intubated and placed on vent support. Cardiology team notified, and patient was taken urgently to vp lab, and admitted to ICU. Acute Respiratory failure requiring MV >96 hours Pt intubated, Placed on vent support, Anterior STEMI sp cardiac arrest case dw cardiology Emergency cath protocol called upon arrival, we found 100% occlusion of the LAD in its prox-mid segment. Successful primari PCI-angioplasty and 3.0-3.5mm BM stents deployed. LAD flow restored-excellent result. 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 He likely had aprolonged period of time without perfusion to his brain. We will continue to monitor his mental status, -His prognosis is grim with very little chance of recovery, this has been conveyed to the family. We would recommend hospice and withdrawal of life supports versus trach and SNIF placement. This was dw family, Critical care physician and neurologist also conveyed the same information to the family unable to go to [facility] as has no insurance -medicare disability application in process of being filled out by family -recommend hospice at this point -case angela Neurologist, Dr Bradley and Dr Perkins The high probability of a clinically significant, sudden or life threatening deterioration of the [Pulmonary, cardiac, renal] system(s) required my full and direct attention, intervention and personal management. The aggregate critical care time was [65] minutes. This time is in addition to time spent performing reported procedures but includes the following: [x] Data Review and interpretation [x] Patient assessment and monitoring of vital signs [x] Documentation [x] Medication orders and management History Interval history: Patient is nonresponsive, lacks most reflexes, had fever, no vomiting, no agitation Hospitalist Physical - Physical exam Narrative exam: General.: Comatose HEENT: Moist mucous membranes, no LAD, Neck: supple Cardiac: S1-S2 heard Lungs: clear to auscultation bilaterally Abdomen: soft , nontender, nondistended, bowel sounds positive Extremities: no edema clubbing or cyanosis Skin: no rash or lesions Neurologic: Patient is in deep coma, lacks most reflexes, at this time, only has gag reflexs, corneal reflex is absent and decerebrate posturing, pupils are fixed and non reactive, lacks all other reflexes, opens eyes spontaneously - Constitutional Vitals: Temp Pulse Resp BP Pulse Ox 99.8 F H 101 H 13 104/55 98 04/06/17 08:00 04/06/17 11:00 04/06/17 11:00 04/06/17 11:00 04/06/17 11:00 General appearance: Present: severe distress Results - Labs CBC & Chem 7: 04/03/17 12:16 03/31/17 09:22 Labs: Laboratory Last Values WBC 11.9 K/mm3 (4.5-11.0) H 04/03/17 12:16 RBC 3.82 M/mm3 (3.65-5.03) 04/03/17 12:16 Hgb 12.1 gm/dl (11.8-15.2) 04/03/17 12:16 Hct 35.7 % (35.5-45.6) 04/03/17 12:16 MCV 94 fl (84-94) 04/03/17 12:16 MCH 32 pg (28-32) 04/03/17 12:16 MCHC 34 % (32-34) 04/03/17 12:16 RDW 14.4 % (13.2-15.2) 04/03/17 12:16 Plt Count 125 K/mm3 (140-440) L 04/03/17 12:16 Lymph % (Auto) 4.8 % (13.4-35.0) L 04/03/17 12:16 [place] % (Auto) 6.3 % (0.0-7.3) 04/03/17 12:16 Eos % (Auto) 1.7 % (0.0-4.3) 04/03/17 12:16 Baso % (Auto) 0.5 % (0.0-1.8) 04/03/17 12:16 Lymph # 0.6 K/mm3 (1.2-5.4) L 04/03/17 12:16 [place] # 0.7 K/mm3 (0.0-0.8) 04/03/17 12:16 Eos # 0.2 K/mm3 (0.0-0.4) 04/03/17 12:16 Baso # 0.1 K/mm3 (0.0-0.1) 04/03/17 12:16 Add Manual Diff Complete 03/30/17 03:50 Total Counted 100 03/30/17 03:50 Seg Neutrophils % 86.7 % (40.0-70.0) H 04/03/17 12:16 Seg Neuts % (Manual) 65.0 % (40.0-70.0) 03/30/17 03:50 Band Neutrophils % 17.0 % 03/30/17 03:50 Lymphocytes % (Manual) 7.0 % (13.4-35.0) L 03/30/17 03:50 Reactive Lymphs % (Man) 0 % 03/30/17 03:50 Monocytes % (Manual) 7.0 % (0.0-7.3) 03/30/17 03:50 Eosinophils % (Manual) 0 % (0.0-4.3) 03/30/17 03:50 Basophils % (Manual) 0 % (0.0-1.8) 03/30/17 03:50 Metamyelocytes % 4.0 % 03/30/17 03:50 Myelocytes % 0 % 03/30/17 03:50 Promyelocytes % 0 % 03/30/17 03:50 Blast Cells % 0 % 03/30/17 03:50 Nucleated RBC % Not Reportable 03/30/17 03:50 Seg Neutrophils # 10.3 K/mm3 (1.8-7.7) H 04/03/17 12:16 Seg Neutrophils # Man 12.7 K/mm3 (1.8-7.7) H 03/30/17 03:50 Band Neutrophils # 3.3 K/mm3 03/30/17 03:50 Lymphocytes # (Manual) 1.4 K/mm3 (1.2-5.4) 03/30/17 03:50 Abs React Lymphs (Man) 0.0 K/mm3 03/30/17 03:50 Monocytes # (Manual) 1.4 K/mm3 (0.0-0.8) H 03/30/17 03:50 Eosinophils # (Manual) 0.0 K/mm3 (0.0-0.4) 03/30/17 03:50 Basophils # (Manual) 0.0 K/mm3 (0.0-0.1) 03/30/17 03:50 Metamyelocytes # 0.8 K/mm3 03/30/17 03:50 Myelocytes # 0.0 K/mm3 03/30/17 03:50 Promyelocytes # 0.0 K/mm3 03/30/17 03:50 Blast Cells # 0.0 K/mm3 03/30/17 03:50 WBC Morphology Not Reportable 03/30/17 03:50 Hypersegmented Neuts Not Reportable 03/30/17 03:50 Hyposegmented Neuts Not Reportable 03/30/17 03:50 Hypogranular Neuts Not Reportable 03/30/17 03:50 Smudge Cells Not Reportable 03/30/17 03:50 Toxic Granulation Not Reportable 03/30/17 03:50 Toxic Vacuolation Not Reportable 03/30/17 03:50 Dohle Bodies Not Reportable 03/30/17 03:50 Pelger-Huet Anomaly Not Reportable 03/30/17 03:50 Sherry Rods Not Reportable 03/30/17 03:50 Platelet Estimate Appears normal 03/30/17 03:50 Clumped Platelets Not Reportable 03/30/17 03:50 Plt Clumps, EDTA Not Reportable 03/30/17 03:50 Large Platelets Not Reportable 03/30/17 03:50 Giant Platelets Not Reportable 03/30/17 03:50 Platelet Satelliting Not Reportable 03/30/17 03:50 Plt Morphology Comment Not Reportable 03/30/17 03:50 RBC Morphology Not Reportable 03/30/17 03:50 Dimorphic RBCs Not Reportable 03/30/17 03:50 Polychromasia Not Reportable 03/30/17 03:50 Hypochromasia Not Reportable 03/30/17 03:50 Poikilocytosis Not Reportable 03/30/17 03:50 Anisocytosis Few 03/30/17 03:50 Microcytosis Not Reportable 03/30/17 03:50 Macrocytosis Not Reportable 03/30/17 03:50 Spherocytes Not Reportable 03/30/17 03:50 Pappenheimer Bodies Not Reportable 03/30/17 03:50 Sickle Cells Not Reportable 03/30/17 03:50 Target Cells Not Reportable 03/30/17 03:50 Tear Drop Cells Not Reportable 03/30/17 03:50 Ovalocytes Not Reportable 03/30/17 03:50 Helmet Cells Not Reportable 03/30/17 03:50 [place] Bodies Not Reportable 03/30/17 03:50 [place] Rings Not Reportable 03/30/17 03:50 Nusrat Cells Not Reportable 03/30/17 03:50 Bite Cells Not Reportable 03/30/17 03:50 Crenated Cell Not Reportable 03/30/17 03:50 Elliptocytes Not Reportable 03/30/17 03:50 Acanthocytes (Spur) Not Reportable 03/30/17 03:50 Rouleaux Not Reportable 03/30/17 03:50 Hemoglobin C Crystals Not Reportable 03/30/17 03:50 Schistocytes Not Reportable 03/30/17 03:50 Malaria parasites Not Reportable 03/30/17 03:50 Jermaine Bodies Not Reportable 03/30/17 03:50 Hem Pathologist Commnt No 03/30/17 03:50 PT 15.8 Sec. (12.2-14.9) H 03/29/17 11:35 INR 1.20 (0.87-1.13) H 03/29/17 11:35 APTT 34.8 Sec. (24.2-36.6) 03/29/17 11:35 Activated Clotting Time 92 (74-137) 03/29/17 17:47 POC ABG pH 7.479 (7.35-7.45) H 04/05/17 04:43 POC ABG pCO2 33.5 (35-45) L 04/05/17 04:43 POC ABG pO2 76 (80-105) L 04/05/17 04:43 POC ABG HCO3 24.8 04/05/17 04:43 POC ABG Total CO2 26 04/05/17 04:43 POC ABG O2 Sat 96 04/05/17 04:43 POC ABG Base Excess 1 04/05/17 04:43 FiO2 35 % 04/05/17 04:43 Sodium 144 mmol/L (137-145) 03/31/17 09:22 Potassium 3.6 mmol/L (3.6-5.0) 03/31/17 09:22 Chloride 106.5 mmol/L (98-107) 03/31/17 09:22 Carbon Dioxide 19 mmol/L (22-30) L 03/31/17 09:22 Anion Gap 22 mmol/L 03/31/17 09:22 BUN 22 mg/dL (9-20) H 03/31/17 09:22 Creatinine 0.6 mg/dL (0.8-1.5) L 03/31/17 09:22 Estimated GFR > 60 ml/min 03/31/17 09:22 BUN/Creatinine Ratio 37 % 03/31/17 09:22 Glucose 148 mg/dL (75-100) H 03/31/17 09:22 POC Glucose 146 (70-105) H 04/06/17 05:26 Calcium 8.3 mg/dL (8.4-10.2) L 03/31/17 09:22 Total Bilirubin 0.50 mg/dL (0.1-1.2) 03/29/17 11:35 AST 32 units/L (5-40) 03/29/17 11:35 ALT 25 units/L (7-56) 03/29/17 11:35 Alkaline Phosphatase 112 units/L (35-129) 03/29/17 11:35 Total Creatine Kinase 7963 units/L (55-170) H 03/30/17 03:50 CK-MB (CK-2) > 300.0 ng/mL (0.0-4.0) H 03/30/17 03:50 CK-MB (CK-2) Rel Index 3.7 (0-4) 03/30/17 03:50 Troponin T 6.850 ng/mL (0.00-0.029) H* 03/30/17 03:50 C-Reactive Protein 21.80 mg/dL (0.00-1.30) H 03/30/17 16:04 Total Protein 6.1 g/dL (6.3-8.2) L 03/29/17 11:35 Albumin 3.5 g/dL (3.9-5) L 03/29/17 11:35 Albumin/Globulin Ratio 1.3 % 03/29/17 11:35 Triglycerides 151 mg/dL (2-149) H 04/01/17 04:29 Cholesterol 164 mg/dL (50-199) 03/29/17 19:52 LDL Cholesterol Direct 81 mg/dL (50-130) 03/29/17 19:52 HDL Cholesterol 44 mg/dL (40-59) 03/29/17 19:52 Cholesterol/HDL Ratio 3.72 % 03/29/17 19:52 Urine Color Yellow (Yellow) 03/30/17 09:45 Urine Turbidity Turbid (Clear) 03/30/17 09:45 Urine pH 5.0 (5.0-7.0) 03/30/17 09:45 Ur Specific [place] 1.031 (1.003-1.030) H 03/30/17 09:45 Urine Protein 30 mg/dl mg/dL (Negative) 03/30/17 09:45 Urine Glucose (UA) Neg mg/dL (Negative) 03/30/17 09:45 Urine Ketones 20 mg/dL (Negative) 03/30/17 09:45 Urine Blood Mod (Negative) 03/30/17 09:45 Urine Nitrite Neg (Negative) 03/30/17 09:45 Urine Bilirubin Neg (Negative) 03/30/17 09:45 Urine Urobilinogen < 2.0 mg/dL (<2.0) 03/30/17 09:45 Ur Leukocyte Esterase Tr (Negative) 03/30/17 09:45 Urine WBC (Auto) 1.0 /HPF (0.0-6.0) 03/30/17 09:45 Urine RBC (Auto) 14.0 /HPF (0.0-6.0) 03/30/17 09:45 Amorphous Crystals 1+ 03/30/17 09:45 Urine Opiates Screen Presumptive negative 03/30/17 09:45 Urine Methadone Screen Presumptive negative 03/30/17 09:45 Ur Barbiturates Screen Presumptive negative 03/30/17 09:45 Ur Phencyclidine Scrn Presumptive negative 03/30/17 09:45 Ur Amphetamines Screen Presumptive positive 03/30/17 09:45 U Benzodiazepines Scrn Presumptive positive 03/30/17 09:45 Urine Cocaine Screen Presumptive negative 03/30/17 09:45 U Marijuana (THC) Screen Presumptive negative 03/30/17 09:45 Drugs of Abuse Note Disclamer 03/30/17 09:45 Blood Type O POSITIVE 03/29/17 11:35 Antibody Screen Negative 03/29/17 11:35
[2017-04-06] MEDS: ZYVOX PO SCH ×2 (12:08→22:04)
--- NOTE | 2017-04-06 12:23 | Progress Note ---
Assessment and Plan Assessment: 1) S/P VT cardiac arrest due to STEMI: 100% LAD occlusion s/p angioplasty and stent 2) Sepsis: still fever and leukocytosis. Etiology likely MRSA pneumonia? central ? pansinusitis. CRP=21 3) Encephalopathy: likely severe anoxic injury. CT head unremarkable 4) Bilateral pneumonia: MRSA 5) Amph abuse ? 6) Extensive pansinusitis Plan: -continue zyvox day 3 of 7 - ok to change to PO -contact isolation -neuro eval Thank you Dr Garay for your consultation, will follow up with you. Alla Arana MD Infectious Diseases Specialist [facility] ([facility]) M [phone] O [phone] Subjective Date of service: 04/06/17 Principal diagnosis: septic shock Interval history: Remains critically ill, still intubated unresponsive Tmax 100.3 - trending down. Microbiology: Urine culture: 03/30 neg Blood cultures: 03/31 ngtd Tracheal asp 03/31 MRSA 04/02 MRSA Current Antimicrobials: zyvox 04/04 Previous Antimicrobials: Zosyn 03/30 Vancomycin 04/03 Objective - Exam Narrative Exam: General appearance: sedated intubated Eyes: icteric sclerae, edematous conjunctivae; no lid-lag; PERRLA HENT: Atraumatic; oropharynx +ETT with thick green secretions +NGT Neck: Trachea midline; supple, no thyromegaly or lymphadenopathy Lungs: valeria loud crackles CV: RRR, no murmurs Abdomen: Soft, non-tender Extremities: valeria edema Skin: Normal temperature, turgor and texture; no rash, ulcers or subcutaneous nodules Psych: sedated. Neuro: sedated Lines: No CVL / PICC - Constitutional Vitals: Vital Signs Temp Pulse Resp BP Pulse Ox 99.8 F H 101 H 13 104/55 98 04/06/17 08:00 04/06/17 11:00 04/06/17 11:00 04/06/17 11:00 04/06/17 11:00 Temperature -Last 24 Hours Temperature 99.8 F Temperature 100.3 F Temperature 98.5 F Temperature 99.5 F Temperature 99.7 F - Labs CBC & Chem 7: 04/03/17 12:16 03/31/17 09:22 Labs: Abnormal lab results 01/01/1104/05/17 04/06/17 Range/Units 11:36 17:58 00:16 POC Glucose 136 H 130 H 159 H (70-105) 04/06/17 Range/Units 05:26 POC Glucose 146 H (70-105)
--- NOTE | 2017-04-06 12:25 | Progress Note ---
Assessment and Plan - Patient Problems (1) Cardiac arrest Current Visit: Yes Status: Acute Plan to address problem: Out of hospital cardiac arrest which resulted in severe anoxic encephalopathy. (2) STEMI (ST elevation myocardial infarction) Current Visit: Yes Status: Acute Qualifiers: Involved coronary artery: LAD coronary artery Qualified Code(s): I21.02 - ST elevation (STEMI) myocardial infarction involving left anterior descending coronary artery Plan to address problem: ST elevation myocardial infarction was treated with primary angioplasty and stenting of the LAD. Subjective Date of service: 04/06/17 Principal diagnosis: septic shock Interval history: Patient is unresponsive, on the vent. On telemetry, there is a sinus tachycardia. Blood pressure is stable. Objective Vital Signs Temp Pulse Resp BP Pulse Ox 04/06/17 11:00 101 H 13 104/55 98 04/06/17 10:30 105 H 31 H 102/56 97 04/06/17 10:02 132 H 04/06/17 10:00 108 H 28 H 102/58 96 04/06/17 09:30 121 H 29 H 106/63 97 04/06/17 09:00 112 H 19 107/63 96 04/06/17 08:50 110 H 106/63 04/06/17 08:30 124 H 32 H 118/59 97 04/06/17 08:00 99.8 F H 104 H 15 103/62 97 04/06/17 07:30 99 H 16 110/62 97 04/06/17 07:00 101 H 30 H 110/63 97 04/06/17 06:30 108 H 32 H 119/67 98 04/06/17 06:00 102 H 109/64 96 04/06/17 05:30 103 H 29 H 110/60 97 04/06/17 05:00 102 H 30 H 90/63 98 04/06/17 04:30 108 H 29 H 90/60 97 04/06/17 04:00 100.3 F H 96 H 18 96/58 98 04/06/17 03:31 97 04/06/17 03:30 98 H 28 H 102/57 97 04/06/17 03:00 99 H 28 H 108/61 97 04/06/17 02:30 99 H 27 H 102/59 98 04/06/17 02:00 99 H 20 105/59 97 04/06/17 01:30 97 H 11 L 106/62 97 04/06/17 01:00 98 H 14 106/61 96 04/06/17 00:35 102 H 110/63 97 04/06/17 00:30 102 H 29 H 110/63 97 04/06/17 00:00 96 H 27 H 105/59 98 04/05/17 23:30 98 H 13 103/62 97 04/05/17 23:27 98.5 F 04/05/17 23:00 96 H 28 H 107/61 98 04/05/17 22:30 92 H 11 L 100/61 98 04/05/17 22:00 92 H 9 L 98/59 98 04/05/17 21:30 95 H 28 H 101/60 97 04/05/17 21:00 98 H 28 H 99/63 98 04/05/17 20:58 97 H 107/60 99 04/05/17 20:43 99 H 13 109/63 98 04/05/17 20:30 97 H 26 H 99/57 98 04/05/17 20:00 99.5 F 97 H 26 H 101/58 96 04/05/17 19:30 94 H 27 H 99/62 96 04/05/17 19:00 95 H 13 107/62 97 04/05/17 18:30 90 27 H 95/60 99 04/05/17 18:00 94 H 20 98/58 99 04/05/17 17:40 95/58 04/05/17 17:30 94 H 15 97/59 99 04/05/17 17:00 95 H 21 97/59 98 04/05/17 16:30 97 H 24 103/64 98 04/05/17 16:29 107 H 100/59 96 04/05/17 16:01 106 H 27 H 119/74 97 04/05/17 16:00 99.7 F H 97 04/05/17 15:31 113 H 27 H 119/74 97 04/05/17 15:01 116 H 30 H 119/74 97 04/05/17 14:31 156 H 33 H 119/72 96 04/05/17 14:24 100/56 04/05/17 14:01 152 H 33 H 123/62 96 04/05/17 13:30 152 H 35 H 98/65 96 01/10/18 13:01 112 H 16 100/67 95 04/05/17 12:30 112 H 16 110/60 97 04/05/17 12:29 112 H 117/68 97 - Physical Examination General: Other (unresponsive on the vent) HEENT: Positive: Other (unresponsive, vent) Neck: Positive: neck supple, trachea midline. Negative: JVD/HJR Cardiac: Positive: Regular Rhythm Lungs: Positive: Decreased Breath Sounds Neuro: Positive: Other (unresponsive post VF arrest) Abdomen: Positive: Soft, Active Bowel Sounds Skin: Positive: Clear Extremities: Absent: edema
[2017-04-06] MEDS: TYLENOL PO PRN (17:07)
--- NOTE | 2017-04-06 17:12 | Consultation ---
History of Present Illness Consult date: 04/06/17 History of present illness: made rounds and spoke to the brother at the patient's room explained I do not see much potential for further recovery at this time severe brain anoxia and widespread cortical oss of cortical richter matter diagnostic for severe hypoxia do not see any areas in [employer] cortex that point to recovery Past History Past Medical History: No medical history (Reviewed), migraines Past Surgical History: No surgical history, Other (reviewed.) Social history: single, smoking (some current smoking per brother), alcohol abuse (some alcohol though quantity not known by brother though he states the patient had half pint of Olvin Cuadra on alexander), other (does [employer], brother works at same company. Brother says no illicit drugs.). denies: prescription drug abuse, IV drug use Family history: no significant family history, CAD (same brother as above had bypass surgery. Liver disease in at least one other brother.), diabetes (mother ) Medications and Allergies Allergies Allergy/AdvReac Type Severity Reaction Status Date / Time No Known Allergies Allergy Unverified 03/29/17 11:35 Home Medications Medication Instructions Recorded Confirmed Last Taken Type No Known Home Medications [No 03/30/17 03/30/17 Unknown History Reported Home Medications] Active Meds: Active Medications Acetaminophen (Tylenol) 1,000 mg PO Q6H PRN PRN Reason: Fever >101 Last Admin: 04/06/17 17:07 Dose: 1,000 mg Albuterol (Proventil) 2.5 mg IH Q3HRT PRN PRN Reason: Shortness Of Breath Amiodarone HCl (Cordarone) 200 mg PO BID [facility] Last Admin: 04/06/17 10:01 Dose: 200 mg Lipase/Protease/Amylase (Pancreaze Dr 10,500 Unit) 1 each FEEDTUBE PRN PRN PRN Reason: For Clogged Feeding Tube Aspirin (Aspirin) 300 mg NJ QDAY [facility] Last Admin: 04/06/17 10:03 Dose: 300 mg Atorvastatin Calcium (Lipitor) 20 mg PO QHS [facility] Last Admin: 04/05/17 21:46 Dose: 20 mg Clopidogrel Bisulfate (Plavix) 75 mg PO QDAY [facility] Last Admin: 04/06/17 10:01 Dose: 75 mg Dextrose (D50w (25gm) Syringe) 50 ml IV PRN PRN PRN Reason: Hypoglycemia Heparin Sodium (Porcine) (Heparin) 5,000 unit SUB-Q Q12HR [facility] Last Admin: 04/06/17 10:05 Dose: 5,000 unit Hydrophilic Ointment (Vaseline Lip Therapy) 1 applic TP Q2HR PRN PRN Reason: Dry Lips Last Admin: 03/31/17 22:50 Dose: 1 applic Fentanyl Citrate (Fentanyl Drip Premix) 2,000 mcg in 100 mls @ 4.309 mls/hr IV TITR CHETAN; 1 MCG/KG/HR PRN Reason: Protocol Midazolam HCl 100 mg/ Sodium (Chloride) 100 mls @ 2 mls/hr IV TITR CHETAN; 2 MG/HR PRN Reason: Protocol Last Titration: 03/30/17 09:00 Dose: 0 mg/hr, 0 mls/hr Propofol (Diprivan 10 Mg/Ml) 1,000 mg in 100 mls @ 2.585 mls/hr IV TITR CHETAN; 5 MCG/KG/MIN PRN Reason: Protocol Last Titration: 04/06/17 08:56 Dose: 20 mcg/kg/min, 10.342 mls/hr Norepinephrine (Levophed Drip 4 Mg/Ns 250 Ml) 4 mg in 250 mls @ 7.5 mls/hr IV TITR CHETAN; 2 MCG/MIN PRN Reason: Protocol Last Titration: 03/30/17 09:00 Dose: 10 mcg/min, 37.5 mls/hr Linezolid (Zyvox) 600 mg PO BID [facility] Last Admin: 04/06/17 12:08 Dose: 600 mg Lisinopril (Zestril) 5 mg PO QDAY [facility] Last Admin: 04/06/17 10:20 Dose: Not Given Metoprolol Tartrate (Lopressor) 2.5 mg IV Q4HR PRN PRN Reason: HR>130 Metoprolol Tartrate (Lopressor) 50 mg PO Q8H [facility] Last Admin: 04/06/17 10:02 Dose: 50 mg Multi-Ingred Cream/Lotion/Oil/Oint (Artificial Tears Ophth Oint) 1 applic OU Q4HR PRN PRN Reason: Dry Eye(s) Last Admin: 03/31/17 22:51 Dose: 1 applic Nitroglycerin (Nitro-Bid 2%) 1 inch TP QIDNTG CHETAN PRN Reason: Protocol Last Admin: 04/06/17 14:00 Dose: Not Given Pantoprazole (Protonix) 40 mg FEEDTUBE DAILY [facility] Last Admin: 04/06/17 10:03 Dose: 40 mg Simple Syrup (Simple Syrup) 15 ml FEEDTUBE PRN PRN PRN Reason: Hypoglycemia Simple Syrup (Simple Syrup) 30 ml FEEDTUBE PRN PRN PRN Reason: Hypoglycemia Sodium Bicarbonate (Sodium Bicarbonate) 325 mg FEEDTUBE PRN PRN PRN Reason: For Clogged Feeding Tube Physical Examination - Vital Signs Vital Signs: Vital Signs Pulse Resp Pulse Ox 113 H 28 H 93 03/29/17 11:33 03/29/17 11:33 03/29/17 11:33 Results - Laboratory Findings CBC and BMP: 04/03/17 12:16 03/31/17 09:22 Abnormal Lab Findings: Abnormal Labs 03/29/17 03/29/17 03/29/17 11:35 11:35 11:40 WBC MCV 98 H MCH 33 H Plt Count Lymph % (Auto) Lymph # Seg Neutrophils % Lymphocytes % (Manual) Monocytes % (Manual) 9.0 H Nucleated RBC % 1.0 H Seg Neutrophils # Seg Neutrophils # Man Monocytes # (Manual) 0.9 H PT 15.8 H INR 1.20 H Activated Clotting Time POC ABG pH POC ABG pCO2 POC ABG pO2 Potassium 2.7 L* Chloride 95.3 L Carbon Dioxide 17 L BUN Creatinine Glucose 435 H POC Glucose Calcium Total Creatine Kinase CK-MB (CK-2) CK-MB (CK-2) Rel Index Troponin T C-Reactive Protein Total Protein 6.1 L Albumin 3.5 L Triglycerides Ur Specific [place] 03/29/17 03/29/17 03/29/17 12:34 13:10 13:25 WBC MCV MCH Plt Count Lymph % (Auto) Lymph # Seg Neutrophils % Lymphocytes % (Manual) Monocytes % (Manual) Nucleated RBC % Seg Neutrophils # Seg Neutrophils # Man Monocytes # (Manual) PT INR Activated Clotting Time 142 H 169 H 175 H POC ABG pH POC ABG pCO2 POC ABG pO2 Potassium Chloride Carbon Dioxide BUN Creatinine Glucose POC Glucose Calcium Total Creatine Kinase CK-MB (CK-2) CK-MB (CK-2) Rel Index Troponin T C-Reactive Protein Total Protein Albumin Triglycerides Ur Specific [place] 01/06/1103/29/17 03/29/17 14:50 15:18 19:52 WBC MCV MCH Plt Count Lymph % (Auto) Lymph # Seg Neutrophils % Lymphocytes % (Manual) Monocytes % (Manual) Nucleated RBC % Seg Neutrophils # Seg Neutrophils # Man Monocytes # (Manual) PT INR Activated Clotting Time 175 H POC ABG pH 7.293 L POC ABG pCO2 POC ABG pO2 602 H Potassium Chloride Carbon Dioxide BUN Creatinine Glucose POC Glucose Calcium Total Creatine Kinase 7263 H CK-MB (CK-2) > 300.0 H CK-MB (CK-2) Rel Index 4.1 H Troponin T 8.080 H* D C-Reactive Protein Total Protein Albumin Triglycerides 195 H Ur Specific [place] 03/30/17 03/30/17 03/30/17 03:50 03:50 06:19 WBC 19.5 H MCV MCH Plt Count Lymph % (Auto) Lymph # Seg Neutrophils % Lymphocytes % (Manual) 7.0 L Monocytes % (Manual) Nucleated RBC % Seg Neutrophils # Seg Neutrophils # Man 12.7 H Monocytes # (Manual) 1.4 H PT INR Activated Clotting Time POC ABG pH POC ABG pCO2 28.2 L POC ABG pO2 108 H Potassium Chloride 108.9 H Carbon Dioxide 15 L BUN 25 H Creatinine Glucose 158 H POC Glucose Calcium 8.1 L Total Creatine Kinase 7963 H CK-MB (CK-2) > 300.0 H CK-MB (CK-2) Rel Index Troponin T 6.850 H* C-Reactive Protein Total Protein Albumin Triglycerides Ur Specific [place] 03/30/17 03/30/17 03/31/17 09:45 16:04 02:19 WBC MCV MCH Plt Count Lymph % (Auto) Lymph # Seg Neutrophils % Lymphocytes % (Manual) Monocytes % (Manual) Nucleated RBC % Seg Neutrophils # Seg Neutrophils # Man Monocytes # (Manual) PT INR Activated Clotting Time POC ABG pH POC ABG pCO2 POC ABG pO2 Potassium Chloride Carbon Dioxide BUN Creatinine Glucose POC Glucose 137 H Calcium Total Creatine Kinase CK-MB (CK-2) CK-MB (CK-2) Rel Index Troponin T C-Reactive Protein 21.80 H Total Protein Albumin Triglycerides Ur Specific [place] 1.031 H 03/31/17 03/31/17 03/31/17 03:57 06:54 09:22 WBC MCV MCH Plt Count Lymph % (Auto) Lymph # Seg Neutrophils % Lymphocytes % (Manual) Monocytes % (Manual) Nucleated RBC % Seg Neutrophils # Seg Neutrophils # Man Monocytes # (Manual) PT INR Activated Clotting Time POC ABG pH 7.475 H POC ABG pCO2 25.4 L POC ABG pO2 62 L Potassium Chloride Carbon Dioxide 19 L BUN 22 H Creatinine 0.6 L Glucose 148 H POC Glucose 143 H Calcium 8.3 L Total Creatine Kinase CK-MB (CK-2) CK-MB (CK-2) Rel Index Troponin T C-Reactive Protein Total Protein Albumin Triglycerides Ur Specific [place] 03/31/17 03/31/17 03/31/17 11:40 17:47 23:38 WBC MCV MCH Plt Count Lymph % (Auto) Lymph # Seg Neutrophils % Lymphocytes % (Manual) Monocytes % (Manual) Nucleated RBC % Seg Neutrophils # Seg Neutrophils # Man Monocytes # (Manual) PT INR Activated Clotting Time POC ABG pH POC ABG pCO2 POC ABG pO2 Potassium Chloride Carbon Dioxide BUN Creatinine Glucose POC Glucose 127 H 137 H 148 H Calcium Total Creatine Kinase CK-MB (CK-2) CK-MB (CK-2) Rel Index Troponin T C-Reactive Protein Total Protein Albumin Triglycerides Ur Specific [place] 04/01/17 04/01/17 04/01/17 04:29 05:01 11:54 WBC MCV MCH Plt Count Lymph % (Auto) Lymph # Seg Neutrophils % Lymphocytes % (Manual) Monocytes % (Manual) Nucleated RBC % Seg Neutrophils # Seg Neutrophils # Man Monocytes # (Manual) PT INR Activated Clotting Time POC ABG pH 7.513 H POC ABG pCO2 22.1 L POC ABG pO2 64 L Potassium Chloride Carbon Dioxide BUN Creatinine Glucose POC Glucose 121 H Calcium Total Creatine Kinase CK-MB (CK-2) CK-MB (CK-2) Rel Index Troponin T C-Reactive Protein Total Protein Albumin Triglycerides 151 H Ur Specific [place] 04/01/17 04/02/17 04/02/17 18:17 00:11 04:52 WBC MCV MCH Plt Count Lymph % (Auto) Lymph # Seg Neutrophils % Lymphocytes % (Manual) Monocytes % (Manual) Nucleated RBC % Seg Neutrophils # Seg Neutrophils # Man Monocytes # (Manual) PT INR Activated Clotting Time POC ABG pH 7.524 H POC ABG pCO2 25.5 L POC ABG pO2 66 L Potassium Chloride Carbon Dioxide BUN Creatinine Glucose POC Glucose 117 H 122 H Calcium Total Creatine Kinase CK-MB (CK-2) CK-MB (CK-2) Rel Index Troponin T C-Reactive Protein Total Protein Albumin Triglycerides Ur Specific [place] 04/02/17 04/02/17 04/02/17 05:18 10:41 12:19 WBC MCV MCH Plt Count Lymph % (Auto) Lymph # Seg Neutrophils % Lymphocytes % (Manual) Monocytes % (Manual) Nucleated RBC % Seg Neutrophils # Seg Neutrophils # Man Monocytes # (Manual) PT INR Activated Clotting Time POC ABG pH 7.534 H POC ABG pCO2 27.4 L POC ABG pO2 Potassium Chloride Carbon Dioxide BUN Creatinine Glucose POC Glucose 132 H 129 H Calcium Total Creatine Kinase CK-MB (CK-2) CK-MB (CK-2) Rel Index Troponin T C-Reactive Protein Total Protein Albumin Triglycerides Ur Specific [place] 04/02/17 04/03/17 04/03/17 18:05 00:08 05:09 WBC MCV MCH Plt Count Lymph % (Auto) Lymph # Seg Neutrophils % Lymphocytes % (Manual) Monocytes % (Manual) Nucleated RBC % Seg Neutrophils # Seg Neutrophils # Man Monocytes # (Manual) PT INR Activated Clotting Time POC ABG pH 7.455 H POC ABG pCO2 33.2 L POC ABG pO2 120 H Potassium Chloride Carbon Dioxide BUN Creatinine Glucose POC Glucose 136 H 128 H Calcium Total Creatine Kinase CK-MB (CK-2) CK-MB (CK-2) Rel Index Troponin T C-Reactive Protein Total Protein Albumin Triglycerides Ur Specific [place] 04/03/17 04/03/17 04/03/17 06:32 11:54 12:16 WBC 11.9 H MCV MCH Plt Count 125 L Lymph % (Auto) 4.8 L Lymph # 0.6 L Seg Neutrophils % 86.7 H Lymphocytes % (Manual) Monocytes % (Manual) Nucleated RBC % Seg Neutrophils # 10.3 H Seg Neutrophils # Man Monocytes # (Manual) PT INR Activated Clotting Time POC ABG pH POC ABG pCO2 POC ABG pO2 Potassium Chloride Carbon Dioxide BUN Creatinine Glucose POC Glucose 138 H 143 H Calcium Total Creatine Kinase CK-MB (CK-2) CK-MB (CK-2) Rel Index Troponin T C-Reactive Protein Total Protein Albumin Triglycerides Ur Specific [place] 04/03/17 04/03/17 04/04/17 17:33 23:59 04:34 WBC MCV MCH Plt Count Lymph % (Auto) Lymph # Seg Neutrophils % Lymphocytes % (Manual) Monocytes % (Manual) Nucleated RBC % Seg Neutrophils # Seg Neutrophils # Man Monocytes # (Manual) PT INR Activated Clotting Time POC ABG pH 7.457 H POC ABG pCO2 29.8 L POC ABG pO2 76 L Potassium Chloride Carbon Dioxide BUN Creatinine Glucose POC Glucose 130 H 155 H Calcium Total Creatine Kinase CK-MB (CK-2) CK-MB (CK-2) Rel Index Troponin T C-Reactive Protein Total Protein Albumin Triglycerides Ur Specific [place] 04/04/17 04/04/17 04/04/17 05:27 12:22 18:18 WBC MCV MCH Plt Count Lymph % (Auto) Lymph # Seg Neutrophils % Lymphocytes % (Manual) Monocytes % (Manual) Nucleated RBC % Seg Neutrophils # Seg Neutrophils # Man Monocytes # (Manual) PT INR Activated Clotting Time POC ABG pH POC ABG pCO2 POC ABG pO2 Potassium Chloride Carbon Dioxide BUN Creatinine Glucose POC Glucose 164 H 146 H 130 H Calcium Total Creatine Kinase CK-MB (CK-2) CK-MB (CK-2) Rel Index Troponin T C-Reactive Protein Total Protein Albumin Triglycerides Ur Specific [place] 04/05/17 04/05/17 04/05/17 04:43 05:28 11:36 WBC MCV MCH Plt Count Lymph % (Auto) Lymph # Seg Neutrophils % Lymphocytes % (Manual) Monocytes % (Manual) Nucleated RBC % Seg Neutrophils # Seg Neutrophils # Man Monocytes # (Manual) PT INR Activated Clotting Time POC ABG pH 7.479 H POC ABG pCO2 33.5 L POC ABG pO2 76 L Potassium Chloride Carbon Dioxide BUN Creatinine Glucose POC Glucose 145 H 136 H Calcium Total Creatine Kinase CK-MB (CK-2) CK-MB (CK-2) Rel Index Troponin T C-Reactive Protein Total Protein Albumin Triglycerides Ur Specific [place] 04/05/17 04/06/17 04/06/17 17:58 00:16 05:26 WBC MCV MCH Plt Count Lymph % (Auto) Lymph # Seg Neutrophils % Lymphocytes % (Manual) Monocytes % (Manual) Nucleated RBC % Seg Neutrophils # Seg Neutrophils # Man Monocytes # (Manual) PT INR Activated Clotting Time POC ABG pH POC ABG pCO2 POC ABG pO2 Potassium Chloride Carbon Dioxide BUN Creatinine Glucose POC Glucose 130 H 159 H 146 H Calcium Total Creatine Kinase CK-MB (CK-2) CK-MB (CK-2) Rel Index Troponin T C-Reactive Protein Total Protein Albumin Triglycerides Ur Specific [place]
[2017-04-07] MEDS: LOPRESSOR PO SCH ×3 (01:00→18:35)
[2017-04-07] MEDS: NITRO-BID 2% TP SCH ×4 (06:26→18:29)
--- NOTE | 2017-04-07 09:15 | Progress Note ---
Assessment and Plan Out of hospital Vfib arrest Hypoxic encephalopathy. Neurology comments noted and appreciate input.Consistent with severe event,poor prognosis STEMI Chest x-rays with residual infiltrate, possibly residual vascular congestion s/p LHC with stent placement Fever. Still active. Central injury/pneumonia Sputum culture positive for MRSA.+ infiltratrate RLL per CXR report Recommendations Continue ABX Continue fever measures Aprreciate neuro input Trach Critical care time with a 31 minutes of [id number] evaluation and coordination of care Subjective Date of service: 04/07/17 Principal diagnosis: septic shock Interval history: Intubated on vent support.Sedated Objective Vital Signs - 12hr 04/06/17 04/06/17 04/06/17 21:30 22:00 22:30 Temperature Pulse Rate 104 H 100 H 95 H Pulse Rate [ From Monitor] Respiratory 21 29 H 23 Rate Blood Pressure 106/62 104/63 102/60 O2 Sat by Pulse 98 98 98 Oximetry 04/06/17 04/06/17 04/07/17 23:00 23:30 00:00 Temperature 99.9 F H Pulse Rate 94 H 91 H 97 H Pulse Rate [ 126 H From Monitor] Respiratory 28 H 21 29 H Rate Blood Pressure 101/63 100/61 103/62 O2 Sat by Pulse 98 97 98 Oximetry 04/07/17 04/07/17 04/07/17 00:30 01:00 01:30 Temperature Pulse Rate 95 H 120 H 103 H Pulse Rate [ From Monitor] Respiratory 26 H 29 H 23 Rate Blood Pressure 99/64 106/65 104/60 O2 Sat by Pulse 98 98 97 Oximetry 04/07/17 04/07/17 04/07/17 02:00 02:31 03:01 Temperature Pulse Rate 96 H 96 H 140 H Pulse Rate [ From Monitor] Respiratory 28 H 13 24 Rate Blood Pressure 100/59 100/59 100/59 O2 Sat by Pulse 97 97 98 Oximetry 04/07/17 04/07/17 04/07/17 03:30 04:00 04:20 Temperature 100.1 F H Pulse Rate 95 H 93 H 102 H Pulse Rate [ 103 H From Monitor] Respiratory 24 27 H Rate Blood Pressure 100/61 99/59 99/59 O2 Sat by Pulse 97 98 97 Oximetry 04/07/17 04/07/17 04/07/17 04:30 05:00 05:30 Temperature Pulse Rate 93 H 93 H 103 H Pulse Rate [ From Monitor] Respiratory 29 H 13 20 Rate Blood Pressure 99/62 103/59 103/63 O2 Sat by Pulse 99 97 97 Oximetry 04/07/17 04/07/17 04/07/17 06:00 06:26 06:30 Temperature Pulse Rate 96 H 96 H 94 H Pulse Rate [ From Monitor] Respiratory 28 H 28 H Rate Blood Pressure 99/54 99/54 97/54 O2 Sat by Pulse 97 97 Oximetry 04/07/17 04/07/17 04/07/17 07:00 07:30 07:55 Temperature 100.2 F H Pulse Rate 100 H 97 H Pulse Rate [ 101 H From Monitor] Respiratory 29 H 29 H Rate Blood Pressure 105/60 98/54 O2 Sat by Pulse 97 95 100 Oximetry 04/07/17 04/07/17 08:00 08:12 Temperature Pulse Rate 109 H 131 H Pulse Rate [ From Monitor] Respiratory 12 Rate Blood Pressure 102/58 102/58 O2 Sat by Pulse 95 97 Oximetry Constitutional: comatose Eyes: injected, other (pinpoint pupils equal and non reactive) ENT: other (orally intubated, ) Neck: supple, no JVD Effort: normal Ascultation: Bilateral: clear, diminished breath sounds ( ) Percussion: Bilateral: not dull Cardiovascular: regular rate and rhythm Gastrointestinal: hypoactive bowel sounds, other (mild distention) Integumentary: other (multiple tattoos) Extremities: no cyanosis Neurologic: unable to assess, other (no posturing on physical examination and stimulation,irregular breathing) CBC and BMP: 04/03/17 12:16 03/31/17 09:22 ABG, PT/INR, D-dimer: ABG POC ABG pH 7.479 (7.35-7.45) H 04/05/17 04:43 POC ABG pCO2 33.5 (35-45) L 04/05/17 04:43 POC ABG pO2 76 (80-105) L 04/05/17 04:43 POC ABG HCO3 24.8 04/05/17 04:43 POC ABG Total CO2 26 04/05/17 04:43 POC ABG O2 Sat 96 04/05/17 04:43 PT/INR, D-dimer PT 15.8 Sec. (12.2-14.9) H 03/29/17 11:35 INR 1.20 (0.87-1.13) H 03/29/17 11:35 Abnormal lab findings: Abnormal Labs 03/29/17 03/29/17 03/29/17 11:35 11:35 11:40 WBC MCV 98 H MCH 33 H Plt Count Lymph % (Auto) Lymph # Seg Neutrophils % Lymphocytes % (Manual) Monocytes % (Manual) 9.0 H Nucleated RBC % 1.0 H Seg Neutrophils # Seg Neutrophils # Man Monocytes # (Manual) 0.9 H PT 15.8 H INR 1.20 H Activated Clotting Time POC ABG pH POC ABG pCO2 POC ABG pO2 Potassium 2.7 L* Chloride 95.3 L Carbon Dioxide 17 L BUN Creatinine Glucose 435 H POC Glucose Calcium Total Creatine Kinase CK-MB (CK-2) CK-MB (CK-2) Rel Index Troponin T C-Reactive Protein Total Protein 6.1 L Albumin 3.5 L Triglycerides Ur Specific [place] 03/29/17 03/29/17 03/29/17 12:34 13:10 13:25 WBC MCV MCH Plt Count Lymph % (Auto) Lymph # Seg Neutrophils % Lymphocytes % (Manual) Monocytes % (Manual) Nucleated RBC % Seg Neutrophils # Seg Neutrophils # Man Monocytes # (Manual) PT INR Activated Clotting Time 142 H 169 H 175 H POC ABG pH POC ABG pCO2 POC ABG pO2 Potassium Chloride Carbon Dioxide BUN Creatinine Glucose POC Glucose Calcium Total Creatine Kinase CK-MB (CK-2) CK-MB (CK-2) Rel Index Troponin T C-Reactive Protein Total Protein Albumin Triglycerides Ur Specific [place] 03/29/17 03/29/17 03/29/17 14:50 15:18 19:52 WBC MCV MCH Plt Count Lymph % (Auto) Lymph # Seg Neutrophils % Lymphocytes % (Manual) Monocytes % (Manual) Nucleated RBC % Seg Neutrophils # Seg Neutrophils # Man Monocytes # (Manual) PT INR Activated Clotting Time 175 H POC ABG pH 7.293 L POC ABG pCO2 POC ABG pO2 602 H Potassium Chloride Carbon Dioxide BUN Creatinine Glucose POC Glucose Calcium Total Creatine Kinase 7263 H CK-MB (CK-2) > 300.0 H CK-MB (CK-2) Rel Index 4.1 H Troponin T 8.080 H* D C-Reactive Protein Total Protein Albumin Triglycerides 195 H Ur Specific [place] 03/30/17 03/30/17 03/30/17 03:50 03:50 06:19 WBC 19.5 H MCV MCH Plt Count Lymph % (Auto) Lymph # Seg Neutrophils % Lymphocytes % (Manual) 7.0 L Monocytes % (Manual) Nucleated RBC % Seg Neutrophils # Seg Neutrophils # Man 12.7 H Monocytes # (Manual) 1.4 H PT INR Activated Clotting Time POC ABG pH POC ABG pCO2 28.2 L POC ABG pO2 108 H Potassium Chloride 108.9 H Carbon Dioxide 15 L BUN 25 H Creatinine Glucose 158 H POC Glucose Calcium 8.1 L Total Creatine Kinase 7963 H CK-MB (CK-2) > 300.0 H CK-MB (CK-2) Rel Index Troponin T 6.850 H* C-Reactive Protein Total Protein Albumin Triglycerides Ur Specific [place] 03/30/17 03/30/17 03/31/17 09:45 16:04 02:19 WBC MCV MCH Plt Count Lymph % (Auto) Lymph # Seg Neutrophils % Lymphocytes % (Manual) Monocytes % (Manual) Nucleated RBC % Seg Neutrophils # Seg Neutrophils # Man Monocytes # (Manual) PT INR Activated Clotting Time POC ABG pH POC ABG pCO2 POC ABG pO2 Potassium Chloride Carbon Dioxide BUN Creatinine Glucose POC Glucose 137 H Calcium Total Creatine Kinase CK-MB (CK-2) CK-MB (CK-2) Rel Index Troponin T C-Reactive Protein 21.80 H Total Protein Albumin Triglycerides Ur Specific [place] 1.031 H 03/31/17 03/31/17 03/31/17 03:57 06:54 09:22 WBC MCV MCH Plt Count Lymph % (Auto) Lymph # Seg Neutrophils % Lymphocytes % (Manual) Monocytes % (Manual) Nucleated RBC % Seg Neutrophils # Seg Neutrophils # Man Monocytes # (Manual) PT INR Activated Clotting Time POC ABG pH 7.475 H POC ABG pCO2 25.4 L POC ABG pO2 62 L Potassium Chloride Carbon Dioxide 19 L BUN 22 H Creatinine 0.6 L Glucose 148 H POC Glucose 143 H Calcium 8.3 L Total Creatine Kinase CK-MB (CK-2) CK-MB (CK-2) Rel Index Troponin T C-Reactive Protein Total Protein Albumin Triglycerides Ur Specific [place] 03/31/17 03/31/17 03/31/17 11:40 17:47 23:38 WBC MCV MCH Plt Count Lymph % (Auto) Lymph # Seg Neutrophils % Lymphocytes % (Manual) Monocytes % (Manual) Nucleated RBC % Seg Neutrophils # Seg Neutrophils # Man Monocytes # (Manual) PT INR Activated Clotting Time POC ABG pH POC ABG pCO2 POC ABG pO2 Potassium Chloride Carbon Dioxide BUN Creatinine Glucose POC Glucose 127 H 137 H 148 H Calcium Total Creatine Kinase CK-MB (CK-2) CK-MB (CK-2) Rel Index Troponin T C-Reactive Protein Total Protein Albumin Triglycerides Ur Specific [place] 04/01/17 04/01/17 04/01/17 04:29 05:01 11:54 WBC MCV MCH Plt Count Lymph % (Auto) Lymph # Seg Neutrophils % Lymphocytes % (Manual) Monocytes % (Manual) Nucleated RBC % Seg Neutrophils # Seg Neutrophils # Man Monocytes # (Manual) PT INR Activated Clotting Time POC ABG pH 7.513 H POC ABG pCO2 22.1 L POC ABG pO2 64 L Potassium Chloride Carbon Dioxide BUN Creatinine Glucose POC Glucose 121 H Calcium Total Creatine Kinase CK-MB (CK-2) CK-MB (CK-2) Rel Index Troponin T C-Reactive Protein Total Protein Albumin Triglycerides 151 H Ur Specific [place] 04/01/17 04/02/17 04/02/17 18:17 00:11 04:52 WBC MCV MCH Plt Count Lymph % (Auto) Lymph # Seg Neutrophils % Lymphocytes % (Manual) Monocytes % (Manual) Nucleated RBC % Seg Neutrophils # Seg Neutrophils # Man Monocytes # (Manual) PT INR Activated Clotting Time POC ABG pH 7.524 H POC ABG pCO2 25.5 L POC ABG pO2 66 L Potassium Chloride Carbon Dioxide BUN Creatinine Glucose POC Glucose 117 H 122 H Calcium Total Creatine Kinase CK-MB (CK-2) CK-MB (CK-2) Rel Index Troponin T C-Reactive Protein Total Protein Albumin Triglycerides Ur Specific [place] 04/02/17 04/02/17 04/02/17 05:18 10:41 12:19 WBC MCV MCH Plt Count Lymph % (Auto) Lymph # Seg Neutrophils % Lymphocytes % (Manual) Monocytes % (Manual) Nucleated RBC % Seg Neutrophils # Seg Neutrophils # Man Monocytes # (Manual) PT INR Activated Clotting Time POC ABG pH 7.534 H POC ABG pCO2 27.4 L POC ABG pO2 Potassium Chloride Carbon Dioxide BUN Creatinine Glucose POC Glucose 132 H 129 H Calcium Total Creatine Kinase CK-MB (CK-2) CK-MB (CK-2) Rel Index Troponin T C-Reactive Protein Total Protein Albumin Triglycerides Ur Specific [place] 04/02/17 04/03/17 04/03/17 18:05 00:08 05:09 WBC MCV MCH Plt Count Lymph % (Auto) Lymph # Seg Neutrophils % Lymphocytes % (Manual) Monocytes % (Manual) Nucleated RBC % Seg Neutrophils # Seg Neutrophils # Man Monocytes # (Manual) PT INR Activated Clotting Time POC ABG pH 7.455 H POC ABG pCO2 33.2 L POC ABG pO2 120 H Potassium Chloride Carbon Dioxide BUN Creatinine Glucose POC Glucose 136 H 128 H Calcium Total Creatine Kinase CK-MB (CK-2) CK-MB (CK-2) Rel Index Troponin T C-Reactive Protein Total Protein Albumin Triglycerides Ur Specific [place] 04/03/17 04/03/17 04/03/17 06:32 11:54 12:16 WBC 11.9 H MCV MCH Plt Count 125 L Lymph % (Auto) 4.8 L Lymph # 0.6 L Seg Neutrophils % 86.7 H Lymphocytes % (Manual) Monocytes % (Manual) Nucleated RBC % Seg Neutrophils # 10.3 H Seg Neutrophils # Man Monocytes # (Manual) PT INR Activated Clotting Time POC ABG pH POC ABG pCO2 POC ABG pO2 Potassium Chloride Carbon Dioxide BUN Creatinine Glucose POC Glucose 138 H 143 H Calcium Total Creatine Kinase CK-MB (CK-2) CK-MB (CK-2) Rel Index Troponin T C-Reactive Protein Total Protein Albumin Triglycerides Ur Specific [place] 04/03/17 04/03/17 04/04/17 17:33 23:59 04:34 WBC MCV MCH Plt Count Lymph % (Auto) Lymph # Seg Neutrophils % Lymphocytes % (Manual) Monocytes % (Manual) Nucleated RBC % Seg Neutrophils # Seg Neutrophils # Man Monocytes # (Manual) PT INR Activated Clotting Time POC ABG pH 7.457 H POC ABG pCO2 29.8 L POC ABG pO2 76 L Potassium Chloride Carbon Dioxide BUN Creatinine Glucose POC Glucose 130 H 155 H Calcium Total Creatine Kinase CK-MB (CK-2) CK-MB (CK-2) Rel Index Troponin T C-Reactive Protein Total Protein Albumin Triglycerides Ur Specific [place] 04/04/17 04/04/17 04/04/17 05:27 12:22 18:18 WBC MCV MCH Plt Count Lymph % (Auto) Lymph # Seg Neutrophils % Lymphocytes % (Manual) Monocytes % (Manual) Nucleated RBC % Seg Neutrophils # Seg Neutrophils # Man Monocytes # (Manual) PT INR Activated Clotting Time POC ABG pH POC ABG pCO2 POC ABG pO2 Potassium Chloride Carbon Dioxide BUN Creatinine Glucose POC Glucose 164 H 146 H 130 H Calcium Total Creatine Kinase CK-MB (CK-2) CK-MB (CK-2) Rel Index Troponin T C-Reactive Protein Total Protein Albumin Triglycerides Ur Specific [place] 04/05/17 04/05/17 04/05/17 04:43 05:28 11:36 WBC MCV MCH Plt Count Lymph % (Auto) Lymph # Seg Neutrophils % Lymphocytes % (Manual) Monocytes % (Manual) Nucleated RBC % Seg Neutrophils # Seg Neutrophils # Man Monocytes # (Manual) PT INR Activated Clotting Time POC ABG pH 7.479 H POC ABG pCO2 33.5 L POC ABG pO2 76 L Potassium Chloride Carbon Dioxide BUN Creatinine Glucose POC Glucose 145 H 136 H Calcium Total Creatine Kinase CK-MB (CK-2) CK-MB (CK-2) Rel Index Troponin T C-Reactive Protein Total Protein Albumin Triglycerides Ur Specific [place] 04/05/17 04/06/17 04/06/17 17:58 00:16 05:26 WBC MCV MCH Plt Count Lymph % (Auto) Lymph # Seg Neutrophils % Lymphocytes % (Manual) Monocytes % (Manual) Nucleated RBC % Seg Neutrophils # Seg Neutrophils # Man Monocytes # (Manual) PT INR Activated Clotting Time POC ABG pH POC ABG pCO2 POC ABG pO2 Potassium Chloride Carbon Dioxide BUN Creatinine Glucose POC Glucose 130 H 159 H 146 H Calcium Total Creatine Kinase CK-MB (CK-2) CK-MB (CK-2) Rel Index Troponin T C-Reactive Protein Total Protein Albumin Triglycerides Ur Specific [place] 04/06/17 04/06/17 13:11 16:54 WBC MCV MCH Plt Count Lymph % (Auto) Lymph # Seg Neutrophils % Lymphocytes % (Manual) Monocytes % (Manual) Nucleated RBC % Seg Neutrophils # Seg Neutrophils # Man Monocytes # (Manual) PT INR Activated Clotting Time POC ABG pH POC ABG pCO2 POC ABG pO2 Potassium Chloride Carbon Dioxide BUN Creatinine Glucose POC Glucose 132 H 123 H Calcium Total Creatine Kinase CK-MB (CK-2) CK-MB (CK-2) Rel Index Troponin T C-Reactive Protein Total Protein Albumin Triglycerides Ur Specific [place]
[2017-04-07] MEDS: PLAVIX PO SCH (09:46)
[2017-04-07] MEDS: ZYVOX PO SCH ×2 (09:46→21:39)
[2017-04-07] MEDS: PROTONIX FEEDTUBE SCH (09:46)
[2017-04-07] MEDS: HEPARIN SUB-Q SCH ×2 (09:47→21:40)
[2017-04-07] MEDS: CORDARONE PO SCH ×2 (09:47→21:40)
[2017-04-07] MEDS: ASPIRIN PR SCH (09:47)
[2017-04-07] MEDS: DIPRIVAN 10 MG/ML 1,000 MG/100 ML BOTTLE IV SCH (09:52)
--- NOTE | 2017-04-07 10:24 | Progress Note ---
Assessment and Plan Assessment: 1) S/P VT cardiac arrest due to STEMI: 100% LAD occlusion s/p angioplasty and stent 2) Sepsis: still low fever and leukocytosis. Etiology likely MRSA pneumonia? central ? pansinusitis. CRP=21 3) Encephalopathy: likely severe anoxic injury. CT head unremarkable 4) Bilateral pneumonia: MRSA 5) Amph abuse ? 6) Extensive pansinusitis Plan: -continue zyvox day 4 of 7 - ok to change to PO -contact isolation -monitor fever -poor prognosis - no evidence of neuro recovery - neuro eval I will be covering 04/08 and available over the phone on 04/09 please call me for questions. Thank you Dr Garay for your consultation, will follow up with you. Alla Arana MD Infectious Diseases Specialist [facility] ([facility]) M [phone] O [phone] Subjective Date of service: 04/07/17 Principal diagnosis: septic shock Interval history: Remains critically ill, still intubated unresponsive Tmax 100.2 - trending down. Microbiology: Urine culture: 03/30 neg Blood cultures: 03/31 neg Tracheal asp 03/31 MRSA 04/02 MRSA Current Antimicrobials: zyvox 04/04 Previous Antimicrobials: Zosyn 03/30 Vancomycin 04/03 Objective - Exam Narrative Exam: General appearance: sedated intubated Eyes: icteric sclerae, edematous conjunctivae; no lid-lag; PERRLA HENT: Atraumatic; oropharynx +ETT with thick green secretions +NGT Neck: Trachea midline; supple, no thyromegaly or lymphadenopathy Lungs: valeria loud crackles CV: RRR, no murmurs Abdomen: Soft, non-tender Extremities: valeria edema Skin: Normal temperature, turgor and texture; no rash, ulcers or subcutaneous nodules Psych: sedated. Neuro: sedated Lines: No CVL / PICC - Constitutional Vitals: Vital Signs Temp Pulse Resp BP Pulse Ox 100.2 F H 100 H 12 106/58 97 04/07/17 07:55 04/07/17 09:48 04/07/17 08:00 04/07/17 09:48 04/07/17 08:12 Temperature -Last 24 Hours Temperature 100.2 F Temperature 100.1 F Temperature 99.9 F Temperature 99.9 F Temperature 100.6 F Temperature 100.2 F - Labs CBC & Chem 7: 04/03/17 12:16 03/31/17 09:22 Labs: Abnormal lab results 04/06/17 04/06/17 Range/Units 13:11 16:54 POC Glucose 132 H 123 H (70-105)
[2017-04-07] MEDS: ZESTRIL PO SCH (12:25)
--- NOTE | 2017-04-07 12:49 | Progress Note ---
Assessment and Plan Out of hospital VF arrest Acute anterior STEMI s/p PCI of the LAD using BM stents deployed. reduced LVEF 30-35% by echocardiogram. Respiratory failure intubated on the vent Severe anoxic brain injury Pneumonia: MRSA Supportive cardiac management. Subjective Date of service: 04/07/17 Principal diagnosis: septic shock Interval history: Patient remains intubated, unresponsive on the vent. Objective Vital Signs Temp Pulse Pulse Resp BP Pulse Ox 04/07/17 12:25 99 H 100/50 04/07/17 12:24 99 H 100/52 04/07/17 12:00 99 H 22 100/52 96 04/07/17 11:43 106 H 101/59 97 04/07/17 11:30 100 H 31 H 101/59 97 04/07/17 11:00 98 H 31 H 96/53 97 04/07/17 10:30 98 H 29 H 98/56 96 04/07/17 10:00 105 H 21 108/62 97 04/07/17 09:48 100 H 106/58 04/07/17 09:30 99 H 29 H 106/58 98 04/07/17 09:00 99 H 30 H 103/55 97 04/07/17 08:30 110 H 32 H 100/58 96 04/07/17 08:12 131 H 102/58 97 04/07/17 08:00 109 H 12 102/58 95 04/07/17 07:55 100.2 F H 101 H 100 04/07/17 07:30 97 H 29 H 98/54 95 04/07/17 07:00 100 H 29 H 105/60 97 04/07/17 06:30 94 H 28 H 97/54 97 04/07/17 06:26 96 H 99/54 04/07/17 06:00 96 H 28 H 99/54 97 04/07/17 05:30 103 H 20 103/63 97 04/07/17 05:00 93 H 13 103/59 97 04/07/17 04:30 93 H 29 H 99/62 99 04/07/17 04:20 102 H 99/59 97 04/07/17 04:00 100.1 F H 93 H 103 H 27 H 99/59 98 04/07/17 03:30 95 H 24 100/61 97 04/07/17 03:01 140 H 24 100/59 98 04/07/17 02:31 96 H 13 100/59 97 04/07/17 02:00 96 H 28 H 100/59 97 04/07/17 01:30 103 H 23 104/60 97 04/07/17 01:00 120 H 29 H 106/65 98 04/07/17 00:30 95 H 26 H 99/64 98 04/07/17 00:00 99.9 F H 97 H 126 H 29 H 103/62 98 04/06/17 23:30 91 H 21 100/61 97 04/06/17 23:00 94 H 28 H 101/63 98 04/06/17 22:30 95 H 23 102/60 98 04/06/17 22:00 100 H 29 H 104/63 98 04/06/17 21:30 104 H 21 106/62 98 04/06/17 21:00 98 H 29 H 104/60 96 04/06/17 20:49 98 H 105/60 98 04/06/17 20:30 114 H 15 105/60 98 04/06/17 20:00 99.9 F H 103 H 140 H 13 89/68 97 04/06/17 19:30 102 H 14 98/58 97 04/06/17 19:00 97 H 14 102/52 98 04/06/17 18:41 98 H 30 H 98/52 97 04/06/17 18:30 97 H 27 H 98/52 98 04/06/17 18:00 95 H 28 H 94/50 98 04/06/17 17:40 99 H 94/50 98 04/06/17 17:31 92/51 04/06/17 17:30 99 H 12 98/49 97 04/06/17 17:01 113 H 30 H 88/55 97 04/06/17 16:30 99 H 30 H 97/52 96 04/06/17 16:00 100.6 F H 97 H 29 H 95/51 98 04/06/17 15:30 96 H 17 99/49 98 04/06/17 15:00 100 H 30 H 95/52 97 04/06/17 14:31 101 H 31 H 97/57 95 04/06/17 14:00 96 H 14 98/51 97 04/06/17 13:45 100 H 104/60 97 04/06/17 13:30 99 H 29 H 100/57 97 04/06/17 13:00 103 H 29 H 105/57 97 - Physical Examination General: Other (unresponsive on the vent) Cardiac: Positive: Reg Rate and Rhythm
--- NOTE | 2017-04-07 14:08 | XRay Report ---
AP CHEST: HISTORY: PICC placement A right arm PICC has been inserted which terminates in the lower SVC. The nasogastric tube and endotracheal tube are unchanged. AP view of the chest demonstrates a normal mediastinal and cardiac contour with clear lungs and normal bony and soft tissue structures. IMPRESSION: Unremarkable AP chest.
--- NOTE | 2017-04-07 15:50 | Progress Note ---
Assessment and Plan Assessment and plan: 46 YO Male with No PMH presents to ED for evaluation. Pt is unresponsive and unable to provide history. Pt history taken from ED staff and EMS. Pt was at work today and suddenly passed out around 1050 hrs-which was witnessed by patients coworkers. EMS notified, and upon arrival the patient was found to have V Fib. Pt treated IAW ACLS protocol. The patient was given 3 defibrillations, 2 rounds of epinephrine, Narcan, and a half amp of sodium bicarbonate. Pt found to be in respiratory distress and was intubated and placed on vent support. Cardiology team notified, and patient was taken urgently to clinical lab clerk, and admitted to ICU. Acute Respiratory failure requiring MV >96 hours Pt intubated, continue ventilator Anterior STEMI sp cardiac arrest case dw cardiology Emergency cath protocol called upon arrival, we found 100% occlusion of the LAD in its prox-mid segment. Successful primari PCI-angioplasty and 3.0-3.5mm BM stents deployed. LAD flow restored-excellent result. 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 He likely had aprolonged period of time without perfusion to his brain. We will continue to monitor his mental status, -His prognosis is grim with very little chance of recovery, this has been conveyed to the family. We would recommend hospice and withdrawal of life supports versus trach and SNIF placement. This was dw family, Critical care physician and neurologist also conveyed the same information to the family unable to go to [facility] as has no insurance -medicare disability application in process of being filled out by family -recommend hospice at this point -case angela Neurologist, Dr Bradley and Dr Perkins The high probability of a clinically significant, sudden or life threatening deterioration of the [Pulmonary, cardiac, renal] system(s) required my full and direct attention, intervention and personal management. The aggregate critical care time was [65] minutes. This time is in addition to time spent performing reported procedures but includes the following: [x] Data Review and interpretation [x] Patient assessment and monitoring of vital signs [x] Documentation [x] Medication orders and management History Interval history: Patient is nonresponsive, lacks most reflexes, had fever, no vomiting, no agitation Hospitalist Physical - Physical exam Narrative exam: General.: Comatose HEENT: Moist mucous membranes, no LAD, Neck: supple Cardiac: S1-S2 heard Lungs: clear to auscultation bilaterally Abdomen: soft , nontender, nondistended, bowel sounds positive Extremities: no edema clubbing or cyanosis Skin: no rash or lesions Neurologic: Patient is in deep coma, lacks most reflexes, at this time, only has gag reflexs, corneal reflex is absent and decerebrate posturing, pupils are fixed and non reactive, lacks all other reflexes, opens eyes spontaneously - Constitutional Vitals: Temp Pulse Resp BP Pulse Ox 100.2 F H 114 H 30 H 89/58 97 04/07/17 12:00 04/07/17 14:01 04/07/17 14:01 04/07/17 14:01 04/07/17 14:01 General appearance: Present: severe distress Results - Labs CBC & Chem 7: 04/03/17 12:16 03/31/17 09:22 Labs: Laboratory Last Values WBC 11.9 K/mm3 (4.5-11.0) H 04/03/17 12:16 RBC 3.82 M/mm3 (3.65-5.03) 04/03/17 12:16 Hgb 12.1 gm/dl (11.8-15.2) 04/03/17 12:16 Hct 35.7 % (35.5-45.6) 04/03/17 12:16 MCV 94 fl (84-94) 04/03/17 12:16 MCH 32 pg (28-32) 04/03/17 12:16 MCHC 34 % (32-34) 04/03/17 12:16 RDW 14.4 % (13.2-15.2) 04/03/17 12:16 Plt Count 125 K/mm3 (140-440) L 04/03/17 12:16 Lymph % (Auto) 4.8 % (13.4-35.0) L 04/03/17 12:16 [place] % (Auto) 6.3 % (0.0-7.3) 04/03/17 12:16 Eos % (Auto) 1.7 % (0.0-4.3) 04/03/17 12:16 Baso % (Auto) 0.5 % (0.0-1.8) 04/03/17 12:16 Lymph # 0.6 K/mm3 (1.2-5.4) L 04/03/17 12:16 [place] # 0.7 K/mm3 (0.0-0.8) 04/03/17 12:16 Eos # 0.2 K/mm3 (0.0-0.4) 04/03/17 12:16 Baso # 0.1 K/mm3 (0.0-0.1) 04/03/17 12:16 Add Manual Diff Complete 03/30/17 03:50 Total Counted 100 03/30/17 03:50 Seg Neutrophils % 86.7 % (40.0-70.0) H 04/03/17 12:16 Seg Neuts % (Manual) 65.0 % (40.0-70.0) 03/30/17 03:50 Band Neutrophils % 17.0 % 03/30/17 03:50 Lymphocytes % (Manual) 7.0 % (13.4-35.0) L 03/30/17 03:50 Reactive Lymphs % (Man) 0 % 03/30/17 03:50 Monocytes % (Manual) 7.0 % (0.0-7.3) 03/30/17 03:50 Eosinophils % (Manual) 0 % (0.0-4.3) 03/30/17 03:50 Basophils % (Manual) 0 % (0.0-1.8) 03/30/17 03:50 Metamyelocytes % 4.0 % 03/30/17 03:50 Myelocytes % 0 % 03/30/17 03:50 Promyelocytes % 0 % 03/30/17 03:50 Blast Cells % 0 % 03/30/17 03:50 Nucleated RBC % Not Reportable 03/30/17 03:50 Seg Neutrophils # 10.3 K/mm3 (1.8-7.7) H 04/03/17 12:16 Seg Neutrophils # Man 12.7 K/mm3 (1.8-7.7) H 03/30/17 03:50 Band Neutrophils # 3.3 K/mm3 03/30/17 03:50 Lymphocytes # (Manual) 1.4 K/mm3 (1.2-5.4) 03/30/17 03:50 Abs React Lymphs (Man) 0.0 K/mm3 03/30/17 03:50 Monocytes # (Manual) 1.4 K/mm3 (0.0-0.8) H 03/30/17 03:50 Eosinophils # (Manual) 0.0 K/mm3 (0.0-0.4) 03/30/17 03:50 Basophils # (Manual) 0.0 K/mm3 (0.0-0.1) 03/30/17 03:50 Metamyelocytes # 0.8 K/mm3 03/30/17 03:50 Myelocytes # 0.0 K/mm3 03/30/17 03:50 Promyelocytes # 0.0 K/mm3 03/30/17 03:50 Blast Cells # 0.0 K/mm3 03/30/17 03:50 WBC Morphology Not Reportable 03/30/17 03:50 Hypersegmented Neuts Not Reportable 03/30/17 03:50 Hyposegmented Neuts Not Reportable 03/30/17 03:50 Hypogranular Neuts Not Reportable 03/30/17 03:50 Smudge Cells Not Reportable 03/30/17 03:50 Toxic Granulation Not Reportable 03/30/17 03:50 Toxic Vacuolation Not Reportable 03/30/17 03:50 Dohle Bodies Not Reportable 03/30/17 03:50 Pelger-Huet Anomaly Not Reportable 03/30/17 03:50 Sherry Rods Not Reportable 03/30/17 03:50 Platelet Estimate Appears normal 03/30/17 03:50 Clumped Platelets Not Reportable 03/30/17 03:50 Plt Clumps, EDTA Not Reportable 03/30/17 03:50 Large Platelets Not Reportable 03/30/17 03:50 Giant Platelets Not Reportable 03/30/17 03:50 Platelet Satelliting Not Reportable 03/30/17 03:50 Plt Morphology Comment Not Reportable 03/30/17 03:50 RBC Morphology Not Reportable 03/30/17 03:50 Dimorphic RBCs Not Reportable 03/30/17 03:50 Polychromasia Not Reportable 03/30/17 03:50 Hypochromasia Not Reportable 03/30/17 03:50 Poikilocytosis Not Reportable 03/30/17 03:50 Anisocytosis Few 03/30/17 03:50 Microcytosis Not Reportable 03/30/17 03:50 Macrocytosis Not Reportable 03/30/17 03:50 Spherocytes Not Reportable 03/30/17 03:50 Pappenheimer Bodies Not Reportable 03/30/17 03:50 Sickle Cells Not Reportable 03/30/17 03:50 Target Cells Not Reportable 03/30/17 03:50 Tear Drop Cells Not Reportable 03/30/17 03:50 Ovalocytes Not Reportable 03/30/17 03:50 Helmet Cells Not Reportable 03/30/17 03:50 [employer] Bodies Not Reportable 03/30/17 03:50 [place] Rings Not Reportable 03/30/17 03:50 [place] Cells Not Reportable 03/30/17 03:50 Bite Cells Not Reportable 03/30/17 03:50 Crenated Cell Not Reportable 03/30/17 03:50 Elliptocytes Not Reportable 03/30/17 03:50 Acanthocytes (Spur) Not Reportable 03/30/17 03:50 Rouleaux Not Reportable 03/30/17 03:50 Hemoglobin C Crystals Not Reportable 03/30/17 03:50 Schistocytes Not Reportable 03/30/17 03:50 Malaria parasites Not Reportable 03/30/17 03:50 Jermaine Bodies Not Reportable 03/30/17 03:50 Hem Pathologist Commnt No 03/30/17 03:50 PT 15.8 Sec. (12.2-14.9) H 03/29/17 11:35 INR 1.20 (0.87-1.13) H 03/29/17 11:35 APTT 34.8 Sec. (24.2-36.6) 03/29/17 11:35 Activated Clotting Time 92 (74-137) 03/29/17 17:47 POC ABG pH 7.517 (7.35-7.45) H 04/07/17 11:45 POC ABG pCO2 32.1 (35-45) L 04/07/17 11:45 POC ABG pO2 93 (80-105) 04/07/17 11:45 POC ABG HCO3 26.0 04/07/17 11:45 POC ABG Total CO2 27 04/07/17 11:45 POC ABG O2 Sat 98 04/07/17 11:45 POC ABG Base Excess 3 04/07/17 11:45 FiO2 35 % 04/07/17 11:45 Sodium 144 mmol/L (137-145) 03/31/17 09:22 Potassium 3.6 mmol/L (3.6-5.0) 03/31/17 09:22 Chloride 106.5 mmol/L (98-107) 03/31/17 09:22 Carbon Dioxide 19 mmol/L (22-30) L 03/31/17 09:22 Anion Gap 22 mmol/L 03/31/17 09:22 BUN 22 mg/dL (9-20) H 03/31/17 09:22 Creatinine 0.6 mg/dL (0.8-1.5) L 03/31/17 09:22 Estimated GFR > 60 ml/min 03/31/17 09:22 BUN/Creatinine Ratio 37 % 03/31/17 09:22 Glucose 148 mg/dL (75-100) H 03/31/17 09:22 POC Glucose 138 (70-105) H 04/07/17 12:51 Calcium 8.3 mg/dL (8.4-10.2) L 03/31/17 09:22 Total Bilirubin 0.50 mg/dL (0.1-1.2) 03/29/17 11:35 AST 32 units/L (5-40) 03/29/17 11:35 ALT 25 units/L (7-56) 03/29/17 11:35 Alkaline Phosphatase 112 units/L (35-129) 03/29/17 11:35 Total Creatine Kinase 7963 units/L (55-170) H 03/30/17 03:50 CK-MB (CK-2) > 300.0 ng/mL (0.0-4.0) H 03/30/17 03:50 CK-MB (CK-2) Rel Index 3.7 (0-4) 03/30/17 03:50 Troponin T 6.850 ng/mL (0.00-0.029) H* 03/30/17 03:50 C-Reactive Protein 21.80 mg/dL (0.00-1.30) H 03/30/17 16:04 Total Protein 6.1 g/dL (6.3-8.2) L 03/29/17 11:35 Albumin 3.5 g/dL (3.9-5) L 03/29/17 11:35 Albumin/Globulin Ratio 1.3 % 03/29/17 11:35 Triglycerides 151 mg/dL (2-149) H 04/01/17 04:29 Cholesterol 164 mg/dL (50-199) 03/29/17 19:52 LDL Cholesterol Direct 81 mg/dL (50-130) 03/29/17 19:52 HDL Cholesterol 44 mg/dL (40-59) 03/29/17 19:52 Cholesterol/HDL Ratio 3.72 % 03/29/17 19:52 Urine Color Yellow (Yellow) 03/30/17 09:45 Urine Turbidity Turbid (Clear) 03/30/17 09:45 Urine pH 5.0 (5.0-7.0) 03/30/17 09:45 Ur Specific [place] 1.031 (1.003-1.030) H 03/30/17 09:45 Urine Protein 30 mg/dl mg/dL (Negative) 03/30/17 09:45 Urine Glucose (UA) Neg mg/dL (Negative) 03/30/17 09:45 Urine Ketones 20 mg/dL (Negative) 03/30/17 09:45 Urine Blood Mod (Negative) 03/30/17 09:45 Urine Nitrite Neg (Negative) 03/30/17 09:45 Urine Bilirubin Neg (Negative) 03/30/17 09:45 Urine Urobilinogen < 2.0 mg/dL (<2.0) 03/30/17 09:45 Ur Leukocyte Esterase Tr (Negative) 03/30/17 09:45 Urine WBC (Auto) 1.0 /HPF (0.0-6.0) 03/30/17 09:45 Urine RBC (Auto) 14.0 /HPF (0.0-6.0) 03/30/17 09:45 Amorphous Crystals 1+ 03/30/17 09:45 Urine Opiates Screen Presumptive negative 03/30/17 09:45 Urine Methadone Screen Presumptive negative 03/30/17 09:45 Ur Barbiturates Screen Presumptive negative 03/30/17 09:45 Ur Phencyclidine Scrn Presumptive negative 03/30/17 09:45 Ur Amphetamines Screen Presumptive positive 03/30/17 09:45 U Benzodiazepines Scrn Presumptive positive 03/30/17 09:45 Urine Cocaine Screen Presumptive negative 03/30/17 09:45 U Marijuana (THC) Screen Presumptive negative 03/30/17 09:45 Drugs of Abuse Note Disclamer 03/30/17 09:45 Blood Type O POSITIVE 03/29/17 11:35 Antibody Screen Negative 03/29/17 11:35
[2017-04-07] MEDS: TYLENOL PO PRN (16:37)
[2017-04-08] MEDS: LOPRESSOR PO SCH ×3 (01:05→22:07)
[2017-04-08] MEDS: DIPRIVAN 10 MG/ML 1,000 MG/100 ML BOTTLE IV SCH ×2 (04:47→23:05)
[2017-04-08] MEDS: NITRO-BID 2% TP SCH ×5 (06:29→19:08)
[2017-04-08] MEDS: HEPARIN SUB-Q SCH ×2 (11:16→23:09)
[2017-04-08] MEDS: ASPIRIN PR SCH (11:18)
[2017-04-08] MEDS: PLAVIX PO SCH (11:19)
[2017-04-08] MEDS: ZESTRIL PO SCH (11:19)
[2017-04-08] MEDS: CORDARONE PO SCH ×2 (11:19→23:09)
[2017-04-08] MEDS: ZYVOX PO SCH ×2 (11:27→23:10)
[2017-04-08] MEDS: PROTONIX FEEDTUBE SCH (11:27)
[2017-04-08] MEDS: ZYVOX 600MG/300ML 600 MG/300 ML BAG IV SCH (12:31)
--- NOTE | 2017-04-08 12:51 | Progress Note ---
Assessment and Plan Out of hospital Dana-infarct VF arrest Acute anterior STEMI s/p PCI of the LAD using BM stents deployed. reduced LVEF 30-35% by echocardiogram. Respiratory failure intubated on the vent Severe anoxic brain injury Pneumonia: MRSA Recommend: Continue current supportive therapy. Overall prognosis is very poor. Subjective Date of service: 04/08/17 Principal diagnosis: septic shock Interval history: No acute events. Remains unresponsive Objective Vital Signs Temp Pulse Resp BP Pulse Ox 04/08/17 11:31 98.9 F 04/08/17 11:17 89 104/70 04/08/17 08:00 98.5 F 04/08/17 07:49 112 H 100/61 108 H 04/08/17 06:29 84 99/59 04/08/17 06:00 84 25 H 99/59 97 04/08/17 05:30 87 26 H 97/53 95 04/08/17 05:00 93 H 27 H 103/64 95 04/08/17 04:30 88 11 L 101/54 94 04/08/17 04:02 98.3 F 04/08/17 04:00 86 27 H 96/55 93 04/08/17 03:36 115 H 94/52 98 04/08/17 03:30 86 26 H 94/52 95 04/08/17 03:00 84 26 H 98/54 96 04/08/17 02:30 90 13 101/55 94 04/08/17 02:00 84 25 H 99/60 94 04/08/17 01:30 90 28 H 99/60 96 04/08/17 01:05 123 H 96/52 04/08/17 01:00 99 H 14 97/57 94 04/08/17 00:30 91 H 25 H 96/52 97 04/08/17 00:26 99.0 F 04/08/17 00:00 95 H 14 98/53 96 04/07/17 23:58 95 H 13 98/57 97 04/07/17 23:41 90 101/59 97 04/07/17 23:30 90 25 H 101/59 96 04/07/17 23:00 90 25 H 98/57 96 04/07/17 22:30 92 H 14 102/52 95 04/07/17 22:00 87 18 101/58 96 04/07/17 21:49 98.1 F 04/07/17 21:30 98 H 13 95/58 93 04/07/17 21:00 90 26 H 97/51 94 04/07/17 20:30 92 H 25 H 103/57 93 04/07/17 20:00 96 H 14 102/55 96 04/07/17 19:52 95 H 99/55 98 04/07/17 19:30 97 H 13 99/55 96 04/07/17 19:00 88 27 H 97/51 98 04/07/17 18:35 95/51 04/07/17 18:30 89 25 H 95/51 97 04/07/17 18:29 85 95/51 04/07/17 18:00 86 24 100/52 97 04/07/17 17:30 94 H 27 H 93/52 04/07/17 17:25 145 H 98/48 100 04/07/17 17:00 96 H 17 101/53 98 04/07/17 16:30 96 H 28 H 101/53 95 04/07/17 16:00 100.7 F H 104 H 27 H 105/57 94 04/07/17 15:31 106 H 30 H 96/54 97 04/07/17 15:00 95 H 28 H 102/49 95 04/07/17 14:30 94 H 27 H 96/53 96 04/07/17 14:01 114 H 30 H 89/58 97 04/07/17 13:30 94 H 29 H 96/46 96 04/07/17 13:00 104 H 14 84/51 95 - Physical Examination General: Other (unresponsive on the vent) HEENT: Positive: Other (unresponsive, vent) Neck: Positive: neck supple, trachea midline. Negative: JVD/HJR Cardiac: Positive: Reg Rate and Rhythm Lungs: Positive: Rhonchi Neuro: Positive: Other (unresponsive post VF arrest) Abdomen: Positive: Soft, Active Bowel Sounds Skin: Positive: Clear Extremities: Absent: edema
--- NOTE | 2017-04-08 12:57 | Progress Note ---
Assessment and Plan Assessment: 1) S/P VT cardiac arrest due to STEMI: 100% LAD occlusion s/p angioplasty and stent 2) Sepsis: resolved. Etiology likely MRSA pneumonia? central ? pansinusitis. CRP=21 3) Encephalopathy: likely severe anoxic injury. CT head unremarkable 4) Bilateral pneumonia: MRSA 5) Amph abuse ? 6) Extensive pansinusitis Plan: -continue zyvox day 5 of 7 -contact isolation -no evidence of neuro recovery - neuro eval I will be available over the phone on 04/09 please call me for questions. Thank you Dr Garay for your consultation, will follow up with you. Alla Arana MD Infectious Diseases Specialist [facility] ([facility]) M [phone] O [phone] Subjective Date of service: 04/08/17 Principal diagnosis: septic shock Interval history: Remains critically ill, still intubated sedated on propofol, no fever for 24h Microbiology: Urine culture: 03/30 neg Blood cultures: 03/31 neg Tracheal asp 03/31 MRSA 04/02 MRSA Current Antimicrobials: zyvox 04/04 Previous Antimicrobials: Zosyn 03/30 Vancomycin 04/03 Objective - Exam Narrative Exam: General appearance: sedated intubated Eyes: icteric sclerae, edematous conjunctivae; no lid-lag; PERRLA HENT: Atraumatic; oropharynx +ETT with thick green secretions +NGT Neck: Trachea midline; supple, no thyromegaly or lymphadenopathy Lungs: valeria loud crackles CV: RRR, no murmurs Abdomen: Soft, non-tender Extremities: valeria edema Skin: Normal temperature, turgor and texture; no rash, ulcers or subcutaneous nodules Psych: sedated. Neuro: sedated Lines: No CVL / PICC - Constitutional Vitals: Vital Signs Temp Pulse Resp BP Pulse Ox 98.9 F 89 25 H 104/70 108 H 04/08/17 11:31 04/08/17 11:17 04/08/17 06:00 04/08/17 11:17 04/08/17 07:49 Temperature -Last 24 Hours Temperature 98.9 F Temperature 98.5 F Temperature 98.3 F Temperature 99.0 F Temperature 98.1 F Temperature 100.7 F - Labs CBC & Chem 7: 04/03/17 12:16 03/31/17 09:22 Labs: Abnormal lab results 04/07/17 04/07/17 04/07/17 Range/Units 11:45 17:40 23:55 POC ABG pH 7.517 H (7.35-7.45) POC ABG pCO2 32.1 L (35-45) POC Glucose 154 H 143 H (70-105) 04/08/17 Range/Units 05:27 POC ABG pH (7.35-7.45) POC ABG pCO2 (35-45) POC Glucose 142 H (70-105)
--- NOTE | 2017-04-08 16:39 | Progress Note ---
Assessment and Plan Assessment and plan: 46 YO Male with No PMH presents to ED for evaluation. Pt is unresponsive and unable to provide history. Pt history taken from ED staff and EMS. Pt was at work today and suddenly passed out around 1050 hrs-which was witnessed by patients coworkers. EMS notified, and upon arrival the patient was found to have V Fib. Pt treated IAW ACLS protocol. The patient was given 3 defibrillations, 2 rounds of epinephrine, Narcan, and a half amp of sodium bicarbonate. Pt found to be in respiratory distress and was intubated and placed on vent support. Cardiology team notified, and patient was taken urgently to [facility], and admitted to ICU. Acute Respiratory failure requiring MV >96 hours Pt intubated, continue ventilator Anterior STEMI sp cardiac arrest case dw cardiology Emergency cath protocol called upon arrival, we found 100% occlusion of the LAD in its prox-mid segment. Successful primari PCI-angioplasty and 3.0-3.5mm BM stents deployed. LAD flow restored-excellent result. 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 He likely had aprolonged period of time without perfusion to his brain. We will continue to monitor his mental status, -His prognosis is grim with very little chance of recovery, this has been conveyed to the family. We would recommend hospice and withdrawal of life supports versus trach and SNIF placement. This was dw family, Critical care physician and neurologist also conveyed the same information to the family unable to go to [facility] as has no insurance -medicare disability application in process of being filled out by family -recommend hospice at this point -family is hoping to take him home on vent/peg tube and have his sister care for him -case angela Neurologist, Dr Bradley and Dr Perkins The high probability of a clinically significant, sudden or life threatening deterioration of the [Pulmonary, cardiac, renal] system(s) required my full and direct attention, intervention and personal management. The aggregate critical care time was [65] minutes. This time is in addition to time spent performing reported procedures but includes the following: [x] Data Review and interpretation [x] Patient assessment and monitoring of vital signs [x] Documentation [x] Medication orders and management History Interval history: Patient is nonresponsive, lacks most reflexes, had fever, no vomiting, no agitation Hospitalist Physical - Physical exam Narrative exam: General.: Comatose HEENT: Moist mucous membranes, no LAD, Neck: supple Cardiac: S1-S2 heard Lungs: clear to auscultation bilaterally Abdomen: soft , nontender, nondistended, bowel sounds positive Extremities: no edema clubbing or cyanosis Skin: no rash or lesions Neurologic: Patient is in deep coma, lacks most reflexes, at this time, only has gag reflexs, corneal reflex is absent and decerebrate posturing, pupils are fixed and non reactive, lacks all other reflexes, opens eyes spontaneously - Constitutional Vitals: Temp Pulse Resp BP Pulse Ox 99.1 F 86 27 H 106/52 95 04/08/17 16:00 04/08/17 15:26 04/08/17 14:30 04/08/17 15:26 04/08/17 14:30 General appearance: Present: severe distress Results - Labs CBC & Chem 7: 04/03/17 12:16 03/31/17 09:22 Labs: Laboratory Last Values WBC 11.9 K/mm3 (4.5-11.0) H 04/03/17 12:16 RBC 3.82 M/mm3 (3.65-5.03) 04/03/17 12:16 Hgb 12.1 gm/dl (11.8-15.2) 04/03/17 12:16 Hct 35.7 % (35.5-45.6) 04/03/17 12:16 MCV 94 fl (84-94) 04/03/17 12:16 MCH 32 pg (28-32) 04/03/17 12:16 MCHC 34 % (32-34) 04/03/17 12:16 RDW 14.4 % (13.2-15.2) 04/03/17 12:16 Plt Count 125 K/mm3 (140-440) L 04/03/17 12:16 Lymph % (Auto) 4.8 % (13.4-35.0) L 04/03/17 12:16 [place] % (Auto) 6.3 % (0.0-7.3) 04/03/17 12:16 Eos % (Auto) 1.7 % (0.0-4.3) 04/03/17 12:16 Baso % (Auto) 0.5 % (0.0-1.8) 04/03/17 12:16 Lymph # 0.6 K/mm3 (1.2-5.4) L 04/03/17 12:16 [place] # 0.7 K/mm3 (0.0-0.8) 04/03/17 12:16 Eos # 0.2 K/mm3 (0.0-0.4) 04/03/17 12:16 Baso # 0.1 K/mm3 (0.0-0.1) 04/03/17 12:16 Add Manual Diff Complete 03/30/17 03:50 Total Counted 100 03/30/17 03:50 Seg Neutrophils % 86.7 % (40.0-70.0) H 04/03/17 12:16 Seg Neuts % (Manual) 65.0 % (40.0-70.0) 03/30/17 03:50 Band Neutrophils % 17.0 % 03/30/17 03:50 Lymphocytes % (Manual) 7.0 % (13.4-35.0) L 03/30/17 03:50 Reactive Lymphs % (Man) 0 % 03/30/17 03:50 Monocytes % (Manual) 7.0 % (0.0-7.3) 03/30/17 03:50 Eosinophils % (Manual) 0 % (0.0-4.3) 03/30/17 03:50 Basophils % (Manual) 0 % (0.0-1.8) 03/30/17 03:50 Metamyelocytes % 4.0 % 03/30/17 03:50 Myelocytes % 0 % 03/30/17 03:50 Promyelocytes % 0 % 03/30/17 03:50 Blast Cells % 0 % 03/30/17 03:50 Nucleated RBC % Not Reportable 03/30/17 03:50 Seg Neutrophils # 10.3 K/mm3 (1.8-7.7) H 04/03/17 12:16 Seg Neutrophils # Man 12.7 K/mm3 (1.8-7.7) H 03/30/17 03:50 Band Neutrophils # 3.3 K/mm3 03/30/17 03:50 Lymphocytes # (Manual) 1.4 K/mm3 (1.2-5.4) 03/30/17 03:50 Abs React Lymphs (Man) 0.0 K/mm3 03/30/17 03:50 Monocytes # (Manual) 1.4 K/mm3 (0.0-0.8) H 03/30/17 03:50 Eosinophils # (Manual) 0.0 K/mm3 (0.0-0.4) 03/30/17 03:50 Basophils # (Manual) 0.0 K/mm3 (0.0-0.1) 03/30/17 03:50 Metamyelocytes # 0.8 K/mm3 03/30/17 03:50 Myelocytes # 0.0 K/mm3 03/30/17 03:50 Promyelocytes # 0.0 K/mm3 03/30/17 03:50 Blast Cells # 0.0 K/mm3 03/30/17 03:50 WBC Morphology Not Reportable 03/30/17 03:50 Hypersegmented Neuts Not Reportable 03/30/17 03:50 Hyposegmented Neuts Not Reportable 03/30/17 03:50 Hypogranular Neuts Not Reportable 03/30/17 03:50 Smudge Cells Not Reportable 03/30/17 03:50 Toxic Granulation Not Reportable 03/30/17 03:50 Toxic Vacuolation Not Reportable 03/30/17 03:50 Dohle Bodies Not Reportable 03/30/17 03:50 Pelger-Huet Anomaly Not Reportable 03/30/17 03:50 Sherry Rods Not Reportable 03/30/17 03:50 Platelet Estimate Appears normal 03/30/17 03:50 Clumped Platelets Not Reportable 03/30/17 03:50 Plt Clumps, EDTA Not Reportable 03/30/17 03:50 Large Platelets Not Reportable 03/30/17 03:50 Giant Platelets Not Reportable 03/30/17 03:50 Platelet Satelliting Not Reportable 03/30/17 03:50 Plt Morphology Comment Not Reportable 03/30/17 03:50 RBC Morphology Not Reportable 03/30/17 03:50 Dimorphic RBCs Not Reportable 03/30/17 03:50 Polychromasia Not Reportable 03/30/17 03:50 Hypochromasia Not Reportable 03/30/17 03:50 Poikilocytosis Not Reportable 03/30/17 03:50 Anisocytosis Few 03/30/17 03:50 Microcytosis Not Reportable 03/30/17 03:50 Macrocytosis Not Reportable 03/30/17 03:50 Spherocytes Not Reportable 03/30/17 03:50 Pappenheimer Bodies Not Reportable 03/30/17 03:50 Sickle Cells Not Reportable 03/30/17 03:50 Target Cells Not Reportable 03/30/17 03:50 Tear Drop Cells Not Reportable 03/30/17 03:50 Ovalocytes Not Reportable 03/30/17 03:50 Helmet Cells Not Reportable 03/30/17 03:50 Tamayo-Jarratt Bodies Not Reportable 03/30/17 03:50 [place] Rings Not Reportable 03/30/17 03:50 Nusrat Cells Not Reportable 03/30/17 03:50 Bite Cells Not Reportable 03/30/17 03:50 Crenated Cell Not Reportable 03/30/17 03:50 Elliptocytes Not Reportable 03/30/17 03:50 Acanthocytes (Spur) Not Reportable 03/30/17 03:50 Rouleaux Not Reportable 03/30/17 03:50 Hemoglobin C Crystals Not Reportable 03/30/17 03:50 Schistocytes Not Reportable 03/30/17 03:50 Malaria parasites Not Reportable 03/30/17 03:50 Jermaine Bodies Not Reportable 03/30/17 03:50 Hem Pathologist Commnt No 03/30/17 03:50 PT 15.8 Sec. (12.2-14.9) H 03/29/17 11:35 INR 1.20 (0.87-1.13) H 03/29/17 11:35 APTT 34.8 Sec. (24.2-36.6) 03/29/17 11:35 Activated Clotting Time 92 (74-137) 03/29/17 17:47 POC ABG pH 7.517 (7.35-7.45) H 04/07/17 11:45 POC ABG pCO2 32.1 (35-45) L 04/07/17 11:45 POC ABG pO2 93 (80-105) 04/07/17 11:45 POC ABG HCO3 26.0 04/07/17 11:45 POC ABG Total CO2 27 04/07/17 11:45 POC ABG O2 Sat 98 04/07/17 11:45 POC ABG Base Excess 3 04/07/17 11:45 FiO2 35 % 04/07/17 11:45 Sodium 144 mmol/L (137-145) 03/31/17 09:22 Potassium 3.6 mmol/L (3.6-5.0) 03/31/17 09:22 Chloride 106.5 mmol/L (98-107) 03/31/17 09:22 Carbon Dioxide 19 mmol/L (22-30) L 03/31/17 09:22 Anion Gap 22 mmol/L 03/31/17 09:22 BUN 22 mg/dL (9-20) H 03/31/17 09:22 Creatinine 0.6 mg/dL (0.8-1.5) L 03/31/17 09:22 Estimated GFR > 60 ml/min 03/31/17 09:22 BUN/Creatinine Ratio 37 % 03/31/17 09:22 Glucose 148 mg/dL (75-100) H 03/31/17 09:22 POC Glucose 153 (70-105) H 04/08/17 11:14 Calcium 8.3 mg/dL (8.4-10.2) L 03/31/17 09:22 Total Bilirubin 0.50 mg/dL (0.1-1.2) 03/29/17 11:35 AST 32 units/L (5-40) 03/29/17 11:35 ALT 25 units/L (7-56) 03/29/17 11:35 Alkaline Phosphatase 112 units/L (35-129) 03/29/17 11:35 Total Creatine Kinase 7963 units/L (55-170) H 03/30/17 03:50 CK-MB (CK-2) > 300.0 ng/mL (0.0-4.0) H 03/30/17 03:50 CK-MB (CK-2) Rel Index 3.7 (0-4) 03/30/17 03:50 Troponin T 6.850 ng/mL (0.00-0.029) H* 03/30/17 03:50 C-Reactive Protein 21.80 mg/dL (0.00-1.30) H 03/30/17 16:04 Total Protein 6.1 g/dL (6.3-8.2) L 03/29/17 11:35 Albumin 3.5 g/dL (3.9-5) L 03/29/17 11:35 Albumin/Globulin Ratio 1.3 % 03/29/17 11:35 Triglycerides 151 mg/dL (2-149) H 04/01/17 04:29 Cholesterol 164 mg/dL (50-199) 03/29/17 19:52 LDL Cholesterol Direct 81 mg/dL (50-130) 03/29/17 19:52 HDL Cholesterol 44 mg/dL (40-59) 03/29/17 19:52 Cholesterol/HDL Ratio 3.72 % 03/29/17 19:52 Urine Color Yellow (Yellow) 03/30/17 09:45 Urine Turbidity Turbid (Clear) 03/30/17 09:45 Urine pH 5.0 (5.0-7.0) 03/30/17 09:45 Ur Specific [place] 1.031 (1.003-1.030) H 03/30/17 09:45 Urine Protein 30 mg/dl mg/dL (Negative) 03/30/17 09:45 Urine Glucose (UA) Neg mg/dL (Negative) 03/30/17 09:45 Urine Ketones 20 mg/dL (Negative) 03/30/17 09:45 Urine Blood Mod (Negative) 03/30/17 09:45 Urine Nitrite Neg (Negative) 03/30/17 09:45 Urine Bilirubin Neg (Negative) 03/30/17 09:45 Urine Urobilinogen < 2.0 mg/dL (<2.0) 03/30/17 09:45 Ur Leukocyte Esterase Tr (Negative) 03/30/17 09:45 Urine WBC (Auto) 1.0 /HPF (0.0-6.0) 03/30/17 09:45 Urine RBC (Auto) 14.0 /HPF (0.0-6.0) 03/30/17 09:45 Amorphous Crystals 1+ 03/30/17 09:45 Urine Opiates Screen Presumptive negative 03/30/17 09:45 Urine Methadone Screen Presumptive negative 03/30/17 09:45 Ur Barbiturates Screen Presumptive negative 03/30/17 09:45 Ur Phencyclidine Scrn Presumptive negative 03/30/17 09:45 Ur Amphetamines Screen Presumptive positive 03/30/17 09:45 U Benzodiazepines Scrn Presumptive positive 03/30/17 09:45 Urine Cocaine Screen Presumptive negative 03/30/17 09:45 U Marijuana (THC) Screen Presumptive negative 03/30/17 09:45 Drugs of Abuse Note Disclamer 03/30/17 09:45 Blood Type O POSITIVE 03/29/17 11:35 Antibody Screen Negative 03/29/17 11:35
--- NOTE | 2017-04-08 17:25 | Progress Note ---
Assessment and Plan Out of hospital Vfib arrest Hypoxic encephalopathy. Neurology comments noted and appreciate input.Consistent with severe event,poor prognosis STEMI Chest x-rays with residual infiltrate, possibly residual vascular congestion s/p LHC with stent placement Fever. Still active. Central injury/pneumonia Sputum culture positive for MRSA.+ infiltratrate RLL per CXR report Recommendations Continue ABX Continue fever measures Aprreciate neuro input Trach Discussed with family Subjective Date of service: 04/08/17 Principal diagnosis: septic shock Interval history: No change remain unresponsive on mechanical ventilator. Orally intubated. Objective Vital Signs - 12hr 04/08/17 04/08/17 04/08/17 05:30 06:00 06:29 Temperature Pulse Rate 87 84 84 Pulse Rate [ From Monitor] Respiratory 26 H 25 H Rate Blood Pressure 97/53 99/59 99/59 O2 Sat by Pulse 95 97 Oximetry 04/08/17 04/08/17 04/08/17 06:30 07:00 07:30 Temperature Pulse Rate 88 89 87 Pulse Rate [ From Monitor] Respiratory 27 H 12 28 H Rate Blood Pressure 100/59 100/64 100/61 O2 Sat by Pulse 98 97 Oximetry 04/08/17 04/08/17 04/08/17 07:49 08:00 08:30 Temperature 98.5 F Pulse Rate 112 H 87 90 Pulse Rate [ From Monitor] Respiratory 24 26 H Rate Blood Pressure 100/61 106/63 101/54 O2 Sat by Pulse 108 H 95 94 Oximetry 04/08/17 04/08/17 04/08/17 09:00 09:30 10:00 Temperature Pulse Rate 116 H 125 H 87 Pulse Rate [ From Monitor] Respiratory 13 27 H 26 H Rate Blood Pressure 97/60 89/63 97/52 O2 Sat by Pulse 94 98 93 Oximetry 04/08/17 04/08/17 04/08/17 10:30 11:00 11:17 Temperature Pulse Rate 98 H 125 H 89 Pulse Rate [ From Monitor] Respiratory 15 29 H Rate Blood Pressure 101/58 104/70 104/70 O2 Sat by Pulse 91 92 Oximetry 04/08/17 04/08/17 04/08/17 11:30 11:31 12:00 Temperature 98.9 F Pulse Rate 136 H 91 H Pulse Rate [ 93 H From Monitor] Respiratory 27 H 12 Rate Blood Pressure 95/65 101/65 O2 Sat by Pulse 89 98 Oximetry 04/08/17 04/08/17 04/08/17 12:30 12:58 13:00 Temperature Pulse Rate 88 97 H 114 H Pulse Rate [ From Monitor] Respiratory 28 H 28 H Rate Blood Pressure 101/55 96/65 96/65 O2 Sat by Pulse 93 99 93 Oximetry 04/08/17 04/08/17 04/08/17 13:30 14:00 14:30 Temperature Pulse Rate 88 123 H 87 Pulse Rate [ From Monitor] Respiratory 27 H 27 H 27 H Rate Blood Pressure 97/55 94/57 101/57 O2 Sat by Pulse 94 96 95 Oximetry 04/08/17 04/08/17 04/08/17 15:26 16:00 17:14 Temperature 99.1 F Pulse Rate 86 87 Pulse Rate [ From Monitor] Respiratory Rate Blood Pressure 106/52 91/52 O2 Sat by Pulse 99 Oximetry Constitutional: comatose Eyes: injected, other (pinpoint pupils equal and non reactive) ENT: other (orally intubated, ) Neck: supple, no JVD Effort: normal Ascultation: Bilateral: clear, diminished breath sounds ( ) Percussion: Bilateral: not dull Cardiovascular: regular rate and rhythm Gastrointestinal: hypoactive bowel sounds, other (mild distention) Integumentary: other (multiple tattoos) Extremities: no cyanosis Neurologic: unable to assess, other (no posturing on physical examination and stimulation,irregular breathing) CBC and BMP: 04/03/17 12:16 03/31/17 09:22 ABG, PT/INR, D-dimer: ABG POC ABG pH 7.517 (7.35-7.45) H 04/07/17 11:45 POC ABG pCO2 32.1 (35-45) L 04/07/17 11:45 POC ABG pO2 93 (80-105) 04/07/17 11:45 POC ABG HCO3 26.0 04/07/17 11:45 POC ABG Total CO2 27 04/07/17 11:45 POC ABG O2 Sat 98 04/07/17 11:45 PT/INR, D-dimer PT 15.8 Sec. (12.2-14.9) H 03/29/17 11:35 INR 1.20 (0.87-1.13) H 03/29/17 11:35 Abnormal lab findings: Abnormal Labs 03/29/17 03/29/17 03/29/17 11:35 11:35 11:40 WBC MCV 98 H MCH 33 H Plt Count Lymph % (Auto) Lymph # Seg Neutrophils % Lymphocytes % (Manual) Monocytes % (Manual) 9.0 H Nucleated RBC % 1.0 H Seg Neutrophils # Seg Neutrophils # Man Monocytes # (Manual) 0.9 H PT 15.8 H INR 1.20 H Activated Clotting Time POC ABG pH POC ABG pCO2 POC ABG pO2 Potassium 2.7 L* Chloride 95.3 L Carbon Dioxide 17 L BUN Creatinine Glucose 435 H POC Glucose Calcium Total Creatine Kinase CK-MB (CK-2) CK-MB (CK-2) Rel Index Troponin T C-Reactive Protein Total Protein 6.1 L Albumin 3.5 L Triglycerides Ur Specific [place] 03/29/17 03/29/17 03/29/17 12:34 13:10 13:25 WBC MCV MCH Plt Count Lymph % (Auto) Lymph # Seg Neutrophils % Lymphocytes % (Manual) Monocytes % (Manual) Nucleated RBC % Seg Neutrophils # Seg Neutrophils # Man Monocytes # (Manual) PT INR Activated Clotting Time 142 H 169 H 175 H POC ABG pH POC ABG pCO2 POC ABG pO2 Potassium Chloride Carbon Dioxide BUN Creatinine Glucose POC Glucose Calcium Total Creatine Kinase CK-MB (CK-2) CK-MB (CK-2) Rel Index Troponin T C-Reactive Protein Total Protein Albumin Triglycerides Ur Specific [place] 03/29/17 03/29/17 03/29/17 14:50 15:18 19:52 WBC MCV MCH Plt Count Lymph % (Auto) Lymph # Seg Neutrophils % Lymphocytes % (Manual) Monocytes % (Manual) Nucleated RBC % Seg Neutrophils # Seg Neutrophils # Man Monocytes # (Manual) PT INR Activated Clotting Time 175 H POC ABG pH 7.293 L POC ABG pCO2 POC ABG pO2 602 H Potassium Chloride Carbon Dioxide BUN Creatinine Glucose POC Glucose Calcium Total Creatine Kinase 7263 H CK-MB (CK-2) > 300.0 H CK-MB (CK-2) Rel Index 4.1 H Troponin T 8.080 H* D C-Reactive Protein Total Protein Albumin Triglycerides 195 H Ur Specific [place] 03/30/17 03/30/17 03/30/17 03:50 03:50 06:19 WBC 19.5 H MCV MCH Plt Count Lymph % (Auto) Lymph # Seg Neutrophils % Lymphocytes % (Manual) 7.0 L Monocytes % (Manual) Nucleated RBC % Seg Neutrophils # Seg Neutrophils # Man 12.7 H Monocytes # (Manual) 1.4 H PT INR Activated Clotting Time POC ABG pH POC ABG pCO2 28.2 L POC ABG pO2 108 H Potassium Chloride 108.9 H Carbon Dioxide 15 L BUN 25 H Creatinine Glucose 158 H POC Glucose Calcium 8.1 L Total Creatine Kinase 7963 H CK-MB (CK-2) > 300.0 H CK-MB (CK-2) Rel Index Troponin T 6.850 H* C-Reactive Protein Total Protein Albumin Triglycerides Ur Specific [place] 03/30/17 03/30/17 03/31/17 09:45 16:04 02:19 WBC MCV MCH Plt Count Lymph % (Auto) Lymph # Seg Neutrophils % Lymphocytes % (Manual) Monocytes % (Manual) Nucleated RBC % Seg Neutrophils # Seg Neutrophils # Man Monocytes # (Manual) PT INR Activated Clotting Time POC ABG pH POC ABG pCO2 POC ABG pO2 Potassium Chloride Carbon Dioxide BUN Creatinine Glucose POC Glucose 137 H Calcium Total Creatine Kinase CK-MB (CK-2) CK-MB (CK-2) Rel Index Troponin T C-Reactive Protein 21.80 H Total Protein Albumin Triglycerides Ur Specific [place] 1.031 H 03/31/17 03/31/17 03/31/17 03:57 06:54 09:22 WBC MCV MCH Plt Count Lymph % (Auto) Lymph # Seg Neutrophils % Lymphocytes % (Manual) Monocytes % (Manual) Nucleated RBC % Seg Neutrophils # Seg Neutrophils # Man Monocytes # (Manual) PT INR Activated Clotting Time POC ABG pH 7.475 H POC ABG pCO2 25.4 L POC ABG pO2 62 L Potassium Chloride Carbon Dioxide 19 L BUN 22 H Creatinine 0.6 L Glucose 148 H POC Glucose 143 H Calcium 8.3 L Total Creatine Kinase CK-MB (CK-2) CK-MB (CK-2) Rel Index Troponin T C-Reactive Protein Total Protein Albumin Triglycerides Ur Specific [place] 03/31/17 03/31/17 03/31/17 11:40 17:47 23:38 WBC MCV MCH Plt Count Lymph % (Auto) Lymph # Seg Neutrophils % Lymphocytes % (Manual) Monocytes % (Manual) Nucleated RBC % Seg Neutrophils # Seg Neutrophils # Man Monocytes # (Manual) PT INR Activated Clotting Time POC ABG pH POC ABG pCO2 POC ABG pO2 Potassium Chloride Carbon Dioxide BUN Creatinine Glucose POC Glucose 127 H 137 H 148 H Calcium Total Creatine Kinase CK-MB (CK-2) CK-MB (CK-2) Rel Index Troponin T C-Reactive Protein Total Protein Albumin Triglycerides Ur Specific [place] 04/01/17 04/01/17 04/01/17 04:29 05:01 11:54 WBC MCV MCH Plt Count Lymph % (Auto) Lymph # Seg Neutrophils % Lymphocytes % (Manual) Monocytes % (Manual) Nucleated RBC % Seg Neutrophils # Seg Neutrophils # Man Monocytes # (Manual) PT INR Activated Clotting Time POC ABG pH 7.513 H POC ABG pCO2 22.1 L POC ABG pO2 64 L Potassium Chloride Carbon Dioxide BUN Creatinine Glucose POC Glucose 121 H Calcium Total Creatine Kinase CK-MB (CK-2) CK-MB (CK-2) Rel Index Troponin T C-Reactive Protein Total Protein Albumin Triglycerides 151 H Ur Specific [place] 04/01/17 04/02/17 04/02/17 18:17 00:11 04:52 WBC MCV MCH Plt Count Lymph % (Auto) Lymph # Seg Neutrophils % Lymphocytes % (Manual) Monocytes % (Manual) Nucleated RBC % Seg Neutrophils # Seg Neutrophils # Man Monocytes # (Manual) PT INR Activated Clotting Time POC ABG pH 7.524 H POC ABG pCO2 25.5 L POC ABG pO2 66 L Potassium Chloride Carbon Dioxide BUN Creatinine Glucose POC Glucose 117 H 122 H Calcium Total Creatine Kinase CK-MB (CK-2) CK-MB (CK-2) Rel Index Troponin T C-Reactive Protein Total Protein Albumin Triglycerides Ur Specific [place] 04/02/17 04/02/17 04/02/17 05:18 10:41 12:19 WBC MCV MCH Plt Count Lymph % (Auto) Lymph # Seg Neutrophils % Lymphocytes % (Manual) Monocytes % (Manual) Nucleated RBC % Seg Neutrophils # Seg Neutrophils # Man Monocytes # (Manual) PT INR Activated Clotting Time POC ABG pH 7.534 H POC ABG pCO2 27.4 L POC ABG pO2 Potassium Chloride Carbon Dioxide BUN Creatinine Glucose POC Glucose 132 H 129 H Calcium Total Creatine Kinase CK-MB (CK-2) CK-MB (CK-2) Rel Index Troponin T C-Reactive Protein Total Protein Albumin Triglycerides Ur Specific [place] 04/02/17 04/03/17 04/03/17 18:05 00:08 05:09 WBC MCV MCH Plt Count Lymph % (Auto) Lymph # Seg Neutrophils % Lymphocytes % (Manual) Monocytes % (Manual) Nucleated RBC % Seg Neutrophils # Seg Neutrophils # Man Monocytes # (Manual) PT INR Activated Clotting Time POC ABG pH 7.455 H POC ABG pCO2 33.2 L POC ABG pO2 120 H Potassium Chloride Carbon Dioxide BUN Creatinine Glucose POC Glucose 136 H 128 H Calcium Total Creatine Kinase CK-MB (CK-2) CK-MB (CK-2) Rel Index Troponin T C-Reactive Protein Total Protein Albumin Triglycerides Ur Specific [place] 04/03/17 04/03/17 04/03/17 06:32 11:54 12:16 WBC 11.9 H MCV MCH Plt Count 125 L Lymph % (Auto) 4.8 L Lymph # 0.6 L Seg Neutrophils % 86.7 H Lymphocytes % (Manual) Monocytes % (Manual) Nucleated RBC % Seg Neutrophils # 10.3 H Seg Neutrophils # Man Monocytes # (Manual) PT INR Activated Clotting Time POC ABG pH POC ABG pCO2 POC ABG pO2 Potassium Chloride Carbon Dioxide BUN Creatinine Glucose POC Glucose 138 H 143 H Calcium Total Creatine Kinase CK-MB (CK-2) CK-MB (CK-2) Rel Index Troponin T C-Reactive Protein Total Protein Albumin Triglycerides Ur Specific [place] 04/03/17 04/03/17 04/04/17 17:33 23:59 04:34 WBC MCV MCH Plt Count Lymph % (Auto) Lymph # Seg Neutrophils % Lymphocytes % (Manual) Monocytes % (Manual) Nucleated RBC % Seg Neutrophils # Seg Neutrophils # Man Monocytes # (Manual) PT INR Activated Clotting Time POC ABG pH 7.457 H POC ABG pCO2 29.8 L POC ABG pO2 76 L Potassium Chloride Carbon Dioxide BUN Creatinine Glucose POC Glucose 130 H 155 H Calcium Total Creatine Kinase CK-MB (CK-2) CK-MB (CK-2) Rel Index Troponin T C-Reactive Protein Total Protein Albumin Triglycerides Ur Specific [place] 04/04/17 04/04/17 04/04/17 05:27 12:22 18:18 WBC MCV MCH Plt Count Lymph % (Auto) Lymph # Seg Neutrophils % Lymphocytes % (Manual) Monocytes % (Manual) Nucleated RBC % Seg Neutrophils # Seg Neutrophils # Man Monocytes # (Manual) PT INR Activated Clotting Time POC ABG pH POC ABG pCO2 POC ABG pO2 Potassium Chloride Carbon Dioxide BUN Creatinine Glucose POC Glucose 164 H 146 H 130 H Calcium Total Creatine Kinase CK-MB (CK-2) CK-MB (CK-2) Rel Index Troponin T C-Reactive Protein Total Protein Albumin Triglycerides Ur Specific [place] 04/05/17 04/05/17 04/05/17 04:43 05:28 11:36 WBC MCV MCH Plt Count Lymph % (Auto) Lymph # Seg Neutrophils % Lymphocytes % (Manual) Monocytes % (Manual) Nucleated RBC % Seg Neutrophils # Seg Neutrophils # Man Monocytes # (Manual) PT INR Activated Clotting Time POC ABG pH 7.479 H POC ABG pCO2 33.5 L POC ABG pO2 76 L Potassium Chloride Carbon Dioxide BUN Creatinine Glucose POC Glucose 145 H 136 H Calcium Total Creatine Kinase CK-MB (CK-2) CK-MB (CK-2) Rel Index Troponin T C-Reactive Protein Total Protein Albumin Triglycerides Ur Specific [place] 04/05/17 04/06/17 04/06/17 17:58 00:16 05:26 WBC MCV MCH Plt Count Lymph % (Auto) Lymph # Seg Neutrophils % Lymphocytes % (Manual) Monocytes % (Manual) Nucleated RBC % Seg Neutrophils # Seg Neutrophils # Man Monocytes # (Manual) PT INR Activated Clotting Time POC ABG pH POC ABG pCO2 POC ABG pO2 Potassium Chloride Carbon Dioxide BUN Creatinine Glucose POC Glucose 130 H 159 H 146 H Calcium Total Creatine Kinase CK-MB (CK-2) CK-MB (CK-2) Rel Index Troponin T C-Reactive Protein Total Protein Albumin Triglycerides Ur Specific [place] 04/06/17 04/06/17 04/07/17 13:11 16:54 11:45 WBC MCV MCH Plt Count Lymph % (Auto) Lymph # Seg Neutrophils % Lymphocytes % (Manual) Monocytes % (Manual) Nucleated RBC % Seg Neutrophils # Seg Neutrophils # Man Monocytes # (Manual) PT INR Activated Clotting Time POC ABG pH 7.517 H POC ABG pCO2 32.1 L POC ABG pO2 Potassium Chloride Carbon Dioxide BUN Creatinine Glucose POC Glucose 132 H 123 H Calcium Total Creatine Kinase CK-MB (CK-2) CK-MB (CK-2) Rel Index Troponin T C-Reactive Protein Total Protein Albumin Triglycerides Ur Specific [place] 04/07/17 04/07/17 04/07/17 12:51 17:40 23:55 WBC MCV MCH Plt Count Lymph % (Auto) Lymph # Seg Neutrophils % Lymphocytes % (Manual) Monocytes % (Manual) Nucleated RBC % Seg Neutrophils # Seg Neutrophils # Man Monocytes # (Manual) PT INR Activated Clotting Time POC ABG pH POC ABG pCO2 POC ABG pO2 Potassium Chloride Carbon Dioxide BUN Creatinine Glucose POC Glucose 138 H 154 H 143 H Calcium Total Creatine Kinase CK-MB (CK-2) CK-MB (CK-2) Rel Index Troponin T C-Reactive Protein Total Protein Albumin Triglycerides Ur Specific [place] 04/08/17 04/08/17 05:27 11:14 WBC MCV MCH Plt Count Lymph % (Auto) Lymph # Seg Neutrophils % Lymphocytes % (Manual) Monocytes % (Manual) Nucleated RBC % Seg Neutrophils # Seg Neutrophils # Man Monocytes # (Manual) PT INR Activated Clotting Time POC ABG pH POC ABG pCO2 POC ABG pO2 Potassium Chloride Carbon Dioxide BUN Creatinine Glucose POC Glucose 142 H 153 H Calcium Total Creatine Kinase CK-MB (CK-2) CK-MB (CK-2) Rel Index Troponin T C-Reactive Protein Total Protein Albumin Triglycerides Ur Specific [place]
--- NOTE | 2017-04-08 18:44 | Consultation ---
History of Present Illness Consult date: 04/08/17 History of present illness: last EEG showed very little evidence of any recovery there was intense slowing and did note low grade fever generally fevers are central with severe degree of cortical anoxia as [facility] regulation of autonomic are lacking Past History Past Medical History: No medical history (Reviewed), migraines Past Surgical History: No surgical history, Other (reviewed.) Social history: single, smoking (some current smoking per brother), alcohol abuse (some alcohol though quantity not known by brother though he states the patient had half pint of Olvin Cuadra on alexander), other (does [employer], brother works at same company. Brother says no illicit drugs.). denies: prescription drug abuse, IV drug use Family history: no significant family history, CAD (same brother as above had bypass surgery. Liver disease in at least one other brother.), diabetes (mother ) Medications and Allergies Allergies Allergy/AdvReac Type Severity Reaction Status Date / Time No Known Allergies Allergy Unverified 03/29/17 11:35 Home Medications Medication Instructions Recorded Confirmed Last Taken Type No Known Home Medications [No 03/30/17 03/30/17 Unknown History Reported Home Medications] Active Meds: Active Medications Acetaminophen (Tylenol) 1,000 mg PO Q6H PRN PRN Reason: Fever >101 Last Admin: 04/07/17 16:37 Dose: 1,000 mg Albuterol (Proventil) 2.5 mg IH Q3HRT PRN PRN Reason: Shortness Of Breath Amiodarone HCl (Cordarone) 200 mg PO BID [facility] Last Admin: 04/08/17 11:19 Dose: 200 mg Lipase/Protease/Amylase (Pancreaze Dr 10,500 Unit) 1 each FEEDTUBE PRN PRN PRN Reason: For Clogged Feeding Tube Aspirin (Aspirin) 300 mg [place] QDAY [facility] Last Admin: 04/08/17 11:18 Dose: 300 mg Atorvastatin Calcium (Lipitor) 20 mg PO QHS [facility] Last Admin: 04/07/17 21:39 Dose: 20 mg Clopidogrel Bisulfate (Plavix) 75 mg PO QDAY [facility] Last Admin: 04/08/17 11:19 Dose: 75 mg Dextrose (D50w (25gm) Syringe) 50 ml IV PRN PRN PRN Reason: Hypoglycemia Heparin Sodium (Porcine) (Heparin) 5,000 unit SUB-Q Q12HR [facility] Last Admin: 04/08/17 11:16 Dose: 5,000 unit Hydrophilic Ointment (Vaseline Lip Therapy) 1 applic TP Q2HR PRN PRN Reason: Dry Lips Last Admin: 03/31/17 22:50 Dose: 1 applic Fentanyl Citrate (Fentanyl Drip Premix) 2,000 mcg in 100 mls @ 4.309 mls/hr IV TITR CHETAN; 1 MCG/KG/HR PRN Reason: Protocol Midazolam HCl 100 mg/ Sodium (Chloride) 100 mls @ 2 mls/hr IV TITR CHETAN; 2 MG/HR PRN Reason: Protocol Last Titration: 03/30/17 09:00 Dose: 0 mg/hr, 0 mls/hr Propofol (Diprivan 10 Mg/Ml) 1,000 mg in 100 mls @ 2.585 mls/hr IV TITR CHETAN; 5 MCG/KG/MIN PRN Reason: Protocol Last Admin: 04/08/17 04:47 Dose: 12 mcg/kg/min, 6.205 mls/hr Norepinephrine (Levophed Drip 4 Mg/Ns 250 Ml) 4 mg in 250 mls @ 7.5 mls/hr IV TITR CHETAN; 2 MCG/MIN PRN Reason: Protocol Last Titration: 03/30/17 09:00 Dose: 10 mcg/min, 37.5 mls/hr Linezolid (Zyvox) 600 mg PO BID [facility] Last Admin: 04/08/17 11:27 Dose: 600 mg Lisinopril (Zestril) 5 mg PO QDAY [facility] Last Admin: 04/08/17 11:19 Dose: 5 mg Metoprolol Tartrate (Lopressor) 2.5 mg IV Q4HR PRN PRN Reason: HR>130 Metoprolol Tartrate (Lopressor) 50 mg PO Q8H [facility] Last Admin: 04/08/17 11:17 Dose: 50 mg Multi-Ingred Cream/Lotion/Oil/Oint (Artificial Tears Ophth Oint) 1 applic OU Q4HR PRN PRN Reason: Dry Eye(s) Last Admin: 03/31/17 22:51 Dose: 1 applic Nitroglycerin (Nitro-Bid 2%) 1 inch TP QIDNTG CHETAN PRN Reason: Protocol Last Admin: 04/08/17 15:27 Dose: 1 inch Pantoprazole (Protonix) 40 mg FEEDTUBE DAILY [facility] Last Admin: 04/08/17 11:27 Dose: 40 mg Simple Syrup (Simple Syrup) 15 ml FEEDTUBE PRN PRN PRN Reason: Hypoglycemia Simple Syrup (Simple Syrup) 30 ml FEEDTUBE PRN PRN PRN Reason: Hypoglycemia Sodium Bicarbonate (Sodium Bicarbonate) 325 mg FEEDTUBE PRN PRN PRN Reason: For Clogged Feeding Tube Physical Examination - Vital Signs Vital Signs: Vital Signs Pulse Resp Pulse Ox 113 H 28 H 93 03/29/17 11:33 03/29/17 11:33 03/29/17 11:33 Results - Laboratory Findings CBC and BMP: 04/03/17 12:16 03/31/17 09:22 Abnormal Lab Findings: Abnormal Labs 03/29/17 03/29/17 03/29/17 11:35 11:35 11:40 WBC MCV 98 H MCH 33 H Plt Count Lymph % (Auto) Lymph # Seg Neutrophils % Lymphocytes % (Manual) Monocytes % (Manual) 9.0 H Nucleated RBC % 1.0 H Seg Neutrophils # Seg Neutrophils # Man Monocytes # (Manual) 0.9 H PT 15.8 H INR 1.20 H Activated Clotting Time POC ABG pH POC ABG pCO2 POC ABG pO2 Potassium 2.7 L* Chloride 95.3 L Carbon Dioxide 17 L BUN Creatinine Glucose 435 H POC Glucose Calcium Total Creatine Kinase CK-MB (CK-2) CK-MB (CK-2) Rel Index Troponin T C-Reactive Protein Total Protein 6.1 L Albumin 3.5 L Triglycerides Ur Specific [place] 03/29/17 03/29/17 03/29/17 12:34 13:10 13:25 WBC MCV MCH Plt Count Lymph % (Auto) Lymph # Seg Neutrophils % Lymphocytes % (Manual) Monocytes % (Manual) Nucleated RBC % Seg Neutrophils # Seg Neutrophils # Man Monocytes # (Manual) PT INR Activated Clotting Time 142 H 169 H 175 H POC ABG pH POC ABG pCO2 POC ABG pO2 Potassium Chloride Carbon Dioxide BUN Creatinine Glucose POC Glucose Calcium Total Creatine Kinase CK-MB (CK-2) CK-MB (CK-2) Rel Index Troponin T C-Reactive Protein Total Protein Albumin Triglycerides Ur Specific [place] 03/29/17 03/29/17 03/29/17 14:50 15:18 19:52 WBC MCV MCH Plt Count Lymph % (Auto) Lymph # Seg Neutrophils % Lymphocytes % (Manual) Monocytes % (Manual) Nucleated RBC % Seg Neutrophils # Seg Neutrophils # Man Monocytes # (Manual) PT INR Activated Clotting Time 175 H POC ABG pH 7.293 L POC ABG pCO2 POC ABG pO2 602 H Potassium Chloride Carbon Dioxide BUN Creatinine Glucose POC Glucose Calcium Total Creatine Kinase 7263 H CK-MB (CK-2) > 300.0 H CK-MB (CK-2) Rel Index 4.1 H Troponin T 8.080 H* D C-Reactive Protein Total Protein Albumin Triglycerides 195 H Ur Specific [place] 03/30/17 03/30/17 03/30/17 03:50 03:50 06:19 WBC 19.5 H MCV MCH Plt Count Lymph % (Auto) Lymph # Seg Neutrophils % Lymphocytes % (Manual) 7.0 L Monocytes % (Manual) Nucleated RBC % Seg Neutrophils # Seg Neutrophils # Man 12.7 H Monocytes # (Manual) 1.4 H PT INR Activated Clotting Time POC ABG pH POC ABG pCO2 28.2 L POC ABG pO2 108 H Potassium Chloride 108.9 H Carbon Dioxide 15 L BUN 25 H Creatinine Glucose 158 H POC Glucose Calcium 8.1 L Total Creatine Kinase 7963 H CK-MB (CK-2) > 300.0 H CK-MB (CK-2) Rel Index Troponin T 6.850 H* C-Reactive Protein Total Protein Albumin Triglycerides Ur Specific [place] 03/30/17 03/30/17 03/31/17 09:45 16:04 02:19 WBC MCV MCH Plt Count Lymph % (Auto) Lymph # Seg Neutrophils % Lymphocytes % (Manual) Monocytes % (Manual) Nucleated RBC % Seg Neutrophils # Seg Neutrophils # Man Monocytes # (Manual) PT INR Activated Clotting Time POC ABG pH POC ABG pCO2 POC ABG pO2 Potassium Chloride Carbon Dioxide BUN Creatinine Glucose POC Glucose 137 H Calcium Total Creatine Kinase CK-MB (CK-2) CK-MB (CK-2) Rel Index Troponin T C-Reactive Protein 21.80 H Total Protein Albumin Triglycerides Ur Specific [place] 1.031 H 03/31/17 03/31/17 03/31/17 03:57 06:54 09:22 WBC MCV MCH Plt Count Lymph % (Auto) Lymph # Seg Neutrophils % Lymphocytes % (Manual) Monocytes % (Manual) Nucleated RBC % Seg Neutrophils # Seg Neutrophils # Man Monocytes # (Manual) PT INR Activated Clotting Time POC ABG pH 7.475 H POC ABG pCO2 25.4 L POC ABG pO2 62 L Potassium Chloride Carbon Dioxide 19 L BUN 22 H Creatinine 0.6 L Glucose 148 H POC Glucose 143 H Calcium 8.3 L Total Creatine Kinase CK-MB (CK-2) CK-MB (CK-2) Rel Index Troponin T C-Reactive Protein Total Protein Albumin Triglycerides Ur Specific [place] 03/31/17 03/31/17 03/31/17 11:40 17:47 23:38 WBC MCV MCH Plt Count Lymph % (Auto) Lymph # Seg Neutrophils % Lymphocytes % (Manual) Monocytes % (Manual) Nucleated RBC % Seg Neutrophils # Seg Neutrophils # Man Monocytes # (Manual) PT INR Activated Clotting Time POC ABG pH POC ABG pCO2 POC ABG pO2 Potassium Chloride Carbon Dioxide BUN Creatinine Glucose POC Glucose 127 H 137 H 148 H Calcium Total Creatine Kinase CK-MB (CK-2) CK-MB (CK-2) Rel Index Troponin T C-Reactive Protein Total Protein Albumin Triglycerides Ur Specific [place] 04/01/17 04/01/17 04/01/17 04:29 05:01 11:54 WBC MCV MCH Plt Count Lymph % (Auto) Lymph # Seg Neutrophils % Lymphocytes % (Manual) Monocytes % (Manual) Nucleated RBC % Seg Neutrophils # Seg Neutrophils # Man Monocytes # (Manual) PT INR Activated Clotting Time POC ABG pH 7.513 H POC ABG pCO2 22.1 L POC ABG pO2 64 L Potassium Chloride Carbon Dioxide BUN Creatinine Glucose POC Glucose 121 H Calcium Total Creatine Kinase CK-MB (CK-2) CK-MB (CK-2) Rel Index Troponin T C-Reactive Protein Total Protein Albumin Triglycerides 151 H Ur Specific [place] 04/01/17 04/02/17 04/02/17 18:17 00:11 04:52 WBC MCV MCH Plt Count Lymph % (Auto) Lymph # Seg Neutrophils % Lymphocytes % (Manual) Monocytes % (Manual) Nucleated RBC % Seg Neutrophils # Seg Neutrophils # Man Monocytes # (Manual) PT INR Activated Clotting Time POC ABG pH 7.524 H POC ABG pCO2 25.5 L POC ABG pO2 66 L Potassium Chloride Carbon Dioxide BUN Creatinine Glucose POC Glucose 117 H 122 H Calcium Total Creatine Kinase CK-MB (CK-2) CK-MB (CK-2) Rel Index Troponin T C-Reactive Protein Total Protein Albumin Triglycerides Ur Specific [place] 04/02/17 04/02/17 04/02/17 05:18 10:41 12:19 WBC MCV MCH Plt Count Lymph % (Auto) Lymph # Seg Neutrophils % Lymphocytes % (Manual) Monocytes % (Manual) Nucleated RBC % Seg Neutrophils # Seg Neutrophils # Man Monocytes # (Manual) PT INR Activated Clotting Time POC ABG pH 7.534 H POC ABG pCO2 27.4 L POC ABG pO2 Potassium Chloride Carbon Dioxide BUN Creatinine Glucose POC Glucose 132 H 129 H Calcium Total Creatine Kinase CK-MB (CK-2) CK-MB (CK-2) Rel Index Troponin T C-Reactive Protein Total Protein Albumin Triglycerides Ur Specific [place] 04/02/17 04/03/17 04/03/17 18:05 00:08 05:09 WBC MCV MCH Plt Count Lymph % (Auto) Lymph # Seg Neutrophils % Lymphocytes % (Manual) Monocytes % (Manual) Nucleated RBC % Seg Neutrophils # Seg Neutrophils # Man Monocytes # (Manual) PT INR Activated Clotting Time POC ABG pH 7.455 H POC ABG pCO2 33.2 L POC ABG pO2 120 H Potassium Chloride Carbon Dioxide BUN Creatinine Glucose POC Glucose 136 H 128 H Calcium Total Creatine Kinase CK-MB (CK-2) CK-MB (CK-2) Rel Index Troponin T C-Reactive Protein Total Protein Albumin Triglycerides Ur Specific [place] 04/03/17 04/03/17 04/03/17 06:32 11:54 12:16 WBC 11.9 H MCV MCH Plt Count 125 L Lymph % (Auto) 4.8 L Lymph # 0.6 L Seg Neutrophils % 86.7 H Lymphocytes % (Manual) Monocytes % (Manual) Nucleated RBC % Seg Neutrophils # 10.3 H Seg Neutrophils # Man Monocytes # (Manual) PT INR Activated Clotting Time POC ABG pH POC ABG pCO2 POC ABG pO2 Potassium Chloride Carbon Dioxide BUN Creatinine Glucose POC Glucose 138 H 143 H Calcium Total Creatine Kinase CK-MB (CK-2) CK-MB (CK-2) Rel Index Troponin T C-Reactive Protein Total Protein Albumin Triglycerides Ur Specific [place] 04/03/17 04/03/17 04/04/17 17:33 23:59 04:34 WBC MCV MCH Plt Count Lymph % (Auto) Lymph # Seg Neutrophils % Lymphocytes % (Manual) Monocytes % (Manual) Nucleated RBC % Seg Neutrophils # Seg Neutrophils # Man Monocytes # (Manual) PT INR Activated Clotting Time POC ABG pH 7.457 H POC ABG pCO2 29.8 L POC ABG pO2 76 L Potassium Chloride Carbon Dioxide BUN Creatinine Glucose POC Glucose 130 H 155 H Calcium Total Creatine Kinase CK-MB (CK-2) CK-MB (CK-2) Rel Index Troponin T C-Reactive Protein Total Protein Albumin Triglycerides Ur Specific [place] 04/04/17 04/04/17 04/04/17 05:27 12:22 18:18 WBC MCV MCH Plt Count Lymph % (Auto) Lymph # Seg Neutrophils % Lymphocytes % (Manual) Monocytes % (Manual) Nucleated RBC % Seg Neutrophils # Seg Neutrophils # Man Monocytes # (Manual) PT INR Activated Clotting Time POC ABG pH POC ABG pCO2 POC ABG pO2 Potassium Chloride Carbon Dioxide BUN Creatinine Glucose POC Glucose 164 H 146 H 130 H Calcium Total Creatine Kinase CK-MB (CK-2) CK-MB (CK-2) Rel Index Troponin T C-Reactive Protein Total Protein Albumin Triglycerides Ur Specific [place] 04/05/17 04/05/17 04/05/17 04:43 05:28 11:36 WBC MCV MCH Plt Count Lymph % (Auto) Lymph # Seg Neutrophils % Lymphocytes % (Manual) Monocytes % (Manual) Nucleated RBC % Seg Neutrophils # Seg Neutrophils # Man Monocytes # (Manual) PT INR Activated Clotting Time POC ABG pH 7.479 H POC ABG pCO2 33.5 L POC ABG pO2 76 L Potassium Chloride Carbon Dioxide BUN Creatinine Glucose POC Glucose 145 H 136 H Calcium Total Creatine Kinase CK-MB (CK-2) CK-MB (CK-2) Rel Index Troponin T C-Reactive Protein Total Protein Albumin Triglycerides Ur Specific [place] 04/05/17 04/06/17 04/06/17 17:58 00:16 05:26 WBC MCV MCH Plt Count Lymph % (Auto) Lymph # Seg Neutrophils % Lymphocytes % (Manual) Monocytes % (Manual) Nucleated RBC % Seg Neutrophils # Seg Neutrophils # Man Monocytes # (Manual) PT INR Activated Clotting Time POC ABG pH POC ABG pCO2 POC ABG pO2 Potassium Chloride Carbon Dioxide BUN Creatinine Glucose POC Glucose 130 H 159 H 146 H Calcium Total Creatine Kinase CK-MB (CK-2) CK-MB (CK-2) Rel Index Troponin T C-Reactive Protein Total Protein Albumin Triglycerides Ur Specific [place] 04/06/17 04/06/17 04/07/17 13:11 16:54 11:45 WBC MCV MCH Plt Count Lymph % (Auto) Lymph # Seg Neutrophils % Lymphocytes % (Manual) Monocytes % (Manual) Nucleated RBC % Seg Neutrophils # Seg Neutrophils # Man Monocytes # (Manual) PT INR Activated Clotting Time POC ABG pH 7.517 H POC ABG pCO2 32.1 L POC ABG pO2 Potassium Chloride Carbon Dioxide BUN Creatinine Glucose POC Glucose 132 H 123 H Calcium Total Creatine Kinase CK-MB (CK-2) CK-MB (CK-2) Rel Index Troponin T C-Reactive Protein Total Protein Albumin Triglycerides Ur Specific [place] 04/07/17 04/07/17 04/07/17 12:51 17:40 23:55 WBC MCV MCH Plt Count Lymph % (Auto) Lymph # Seg Neutrophils % Lymphocytes % (Manual) Monocytes % (Manual) Nucleated RBC % Seg Neutrophils # Seg Neutrophils # Man Monocytes # (Manual) PT INR Activated Clotting Time POC ABG pH POC ABG pCO2 POC ABG pO2 Potassium Chloride Carbon Dioxide BUN Creatinine Glucose POC Glucose 138 H 154 H 143 H Calcium Total Creatine Kinase CK-MB (CK-2) CK-MB (CK-2) Rel Index Troponin T C-Reactive Protein Total Protein Albumin Triglycerides Ur Specific [place] 04/08/17 04/08/17 04/08/17 05:27 11:14 17:44 WBC MCV MCH Plt Count Lymph % (Auto) Lymph # Seg Neutrophils % Lymphocytes % (Manual) Monocytes % (Manual) Nucleated RBC % Seg Neutrophils # Seg Neutrophils # Man Monocytes # (Manual) PT INR Activated Clotting Time POC ABG pH POC ABG pCO2 POC ABG pO2 Potassium Chloride Carbon Dioxide BUN Creatinine Glucose POC Glucose 142 H 153 H 129 H Calcium Total Creatine Kinase CK-MB (CK-2) CK-MB (CK-2) Rel Index Troponin T C-Reactive Protein Total Protein Albumin Triglycerides Ur Specific [place]
[2017-04-09] MEDS: LOPRESSOR PO SCH ×3 (01:38→17:17)
[2017-04-09] MEDS: NITRO-BID 2% TP SCH ×4 (05:03→17:18)
[2017-04-09 09:02] LABS: BUN/Creatinine Ratio 78; Blood Urea Nitrogen 39 mg/dL (9-20); Calcium 8.4 mg/dL (8.4-10.2); Hemolysis Index 3
--- NOTE | 2017-04-09 10:09 | Progress Note ---
Assessment and Plan Assessment and plan: 46 YO Male with No PMH presents to ED for evaluation. Pt is unresponsive and unable to provide history. Pt history taken from ED staff and EMS. Pt was at work today and suddenly passed out around 1050 hrs-which was witnessed by patients coworkers. EMS notified, and upon arrival the patient was found to have V Fib. Pt treated IAW ACLS protocol. The patient was given 3 defibrillations, 2 rounds of epinephrine, Narcan, and a half amp of sodium bicarbonate. Pt found to be in respiratory distress and was intubated and placed on vent support. 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 Acute Respiratory failure requiring MV >96 hours Pt intubated, continue ventilator Anterior STEMI sp cardiac arrest case dw cardiology Emergency cath protocol called upon arrival, we found 100% occlusion of the LAD in its prox-mid segment. Successful primari PCI-angioplasty and 3.0-3.5mm BM stents deployed. LAD flow restored-excellent result. 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 He likely had aprolonged period of time without perfusion to his brain. We will continue to monitor his mental status, -His prognosis is grim with very little chance of recovery, this has been conveyed to the family. We would recommend hospice and withdrawal of life supports versus trach and SNIF placement. This was dw family, Critical care physician and neurologist also conveyed the same information to the family unable to go to LTACH as has no insurance -medicare disability application in process of being filled out by family -recommend hospice at this point -family is hoping to take him home on vent/peg tube and have his sister care for him -case angela Neurologist, Dr Bradley and Dr Perkins The high probability of a clinically significant, sudden or life threatening deterioration of the [Pulmonary, cardiac, renal] system(s) required my full and direct attention, intervention and personal management. The aggregate critical care time was [65] minutes. This time is in addition to time spent performing reported procedures but includes the following: [x] Data Review and interpretation [x] Patient assessment and monitoring of vital signs [x] Documentation [x] Medication orders and management History Interval history: Patient is nonresponsive, lacks most reflexes, had fever, no vomiting, no agitation Hospitalist Physical - Physical exam Narrative exam: General.: Comatose breathes over the vent HEENT: Moist mucous membranes, no LAD, Neck: supple Cardiac: S1-S2 heard Lungs: clear to auscultation bilaterally Abdomen: soft , nontender, nondistended, bowel sounds positive Extremities: no edema clubbing or cyanosis Skin: no rash or lesions Neurologic: Patient is in deep coma, lacks most reflexes, at this time, only has gag reflexs, corneal reflex is absent and decerebrate posturing, pupils are fixed and non reactive, lacks all other reflexes, opens eyes spontaneously - Constitutional Vitals: Temp Pulse Resp BP Pulse Ox 98.9 F 91 H 24 100/67 95 04/09/17 08:00 04/09/17 09:00 04/09/17 09:00 04/09/17 09:00 04/09/17 09:00 General appearance: Present: severe distress Results - Labs CBC & Chem 7: 04/03/17 12:16 04/09/17 08:20 Labs: Laboratory Last Values WBC 11.9 K/mm3 (4.5-11.0) H 04/03/17 12:16 RBC 3.82 M/mm3 (3.65-5.03) 04/03/17 12:16 Hgb 12.1 gm/dl (11.8-15.2) 04/03/17 12:16 Hct 35.7 % (35.5-45.6) 04/03/17 12:16 MCV 94 fl (84-94) 04/03/17 12:16 MCH 32 pg (28-32) 04/03/17 12:16 MCHC 34 % (32-34) 04/03/17 12:16 RDW 14.4 % (13.2-15.2) 04/03/17 12:16 Plt Count 125 K/mm3 (140-440) L 04/03/17 12:16 Lymph % (Auto) 4.8 % (13.4-35.0) L 04/03/17 12:16 [place] % (Auto) 6.3 % (0.0-7.3) 04/03/17 12:16 Eos % (Auto) 1.7 % (0.0-4.3) 04/03/17 12:16 Baso % (Auto) 0.5 % (0.0-1.8) 04/03/17 12:16 Lymph # 0.6 K/mm3 (1.2-5.4) L 04/03/17 12:16 [place] # 0.7 K/mm3 (0.0-0.8) 04/03/17 12:16 Eos # 0.2 K/mm3 (0.0-0.4) 04/03/17 12:16 Baso # 0.1 K/mm3 (0.0-0.1) 04/03/17 12:16 Add Manual Diff Complete 03/30/17 03:50 Total Counted 100 03/30/17 03:50 Seg Neutrophils % 86.7 % (40.0-70.0) H 04/03/17 12:16 Seg Neuts % (Manual) 65.0 % (40.0-70.0) 03/30/17 03:50 Band Neutrophils % 17.0 % 03/30/17 03:50 Lymphocytes % (Manual) 7.0 % (13.4-35.0) L 03/30/17 03:50 Reactive Lymphs % (Man) 0 % 03/30/17 03:50 Monocytes % (Manual) 7.0 % (0.0-7.3) 03/30/17 03:50 Eosinophils % (Manual) 0 % (0.0-4.3) 03/30/17 03:50 Basophils % (Manual) 0 % (0.0-1.8) 03/30/17 03:50 Metamyelocytes % 4.0 % 03/30/17 03:50 Myelocytes % 0 % 03/30/17 03:50 Promyelocytes % 0 % 03/30/17 03:50 Blast Cells % 0 % 03/30/17 03:50 Nucleated RBC % Not Reportable 03/30/17 03:50 Seg Neutrophils # 10.3 K/mm3 (1.8-7.7) H 04/03/17 12:16 Seg Neutrophils # Man 12.7 K/mm3 (1.8-7.7) H 03/30/17 03:50 Band Neutrophils # 3.3 K/mm3 03/30/17 03:50 Lymphocytes # (Manual) 1.4 K/mm3 (1.2-5.4) 03/30/17 03:50 Abs React Lymphs (Man) 0.0 K/mm3 03/30/17 03:50 Monocytes # (Manual) 1.4 K/mm3 (0.0-0.8) H 03/30/17 03:50 Eosinophils # (Manual) 0.0 K/mm3 (0.0-0.4) 03/30/17 03:50 Basophils # (Manual) 0.0 K/mm3 (0.0-0.1) 03/30/17 03:50 Metamyelocytes # 0.8 K/mm3 03/30/17 03:50 Myelocytes # 0.0 K/mm3 03/30/17 03:50 Promyelocytes # 0.0 K/mm3 03/30/17 03:50 Blast Cells # 0.0 K/mm3 03/30/17 03:50 WBC Morphology Not Reportable 03/30/17 03:50 Hypersegmented Neuts Not Reportable 03/30/17 03:50 Hyposegmented Neuts Not Reportable 03/30/17 03:50 Hypogranular Neuts Not Reportable 03/30/17 03:50 Smudge Cells Not Reportable 03/30/17 03:50 Toxic Granulation Not Reportable 03/30/17 03:50 Toxic Vacuolation Not Reportable 03/30/17 03:50 Dohle Bodies Not Reportable 03/30/17 03:50 Pelger-Huet Anomaly Not Reportable 03/30/17 03:50 Sherry Rods Not Reportable 03/30/17 03:50 Platelet Estimate Appears normal 03/30/17 03:50 Clumped Platelets Not Reportable 03/30/17 03:50 Plt Clumps, EDTA Not Reportable 03/30/17 03:50 Large Platelets Not Reportable 03/30/17 03:50 Giant Platelets Not Reportable 03/30/17 03:50 Platelet Satelliting Not Reportable 03/30/17 03:50 Plt Morphology Comment Not Reportable 03/30/17 03:50 RBC Morphology Not Reportable 03/30/17 03:50 Dimorphic RBCs Not Reportable 03/30/17 03:50 Polychromasia Not Reportable 03/30/17 03:50 Hypochromasia Not Reportable 03/30/17 03:50 Poikilocytosis Not Reportable 03/30/17 03:50 Anisocytosis Few 03/30/17 03:50 Microcytosis Not Reportable 03/30/17 03:50 Macrocytosis Not Reportable 03/30/17 03:50 Spherocytes Not Reportable 03/30/17 03:50 Pappenheimer Bodies Not Reportable 03/30/17 03:50 Sickle Cells Not Reportable 03/30/17 03:50 Target Cells Not Reportable 03/30/17 03:50 Tear Drop Cells Not Reportable 03/30/17 03:50 Ovalocytes Not Reportable 03/30/17 03:50 Helmet Cells Not Reportable 03/30/17 03:50 [place] Bodies Not Reportable 03/30/17 03:50 [place] Rings Not Reportable 03/30/17 03:50 [place] Cells Not Reportable 03/30/17 03:50 Bite Cells Not Reportable 03/30/17 03:50 Crenated Cell Not Reportable 03/30/17 03:50 Elliptocytes Not Reportable 03/30/17 03:50 Acanthocytes (Spur) Not Reportable 03/30/17 03:50 Rouleaux Not Reportable 03/30/17 03:50 Hemoglobin C Crystals Not Reportable 03/30/17 03:50 Schistocytes Not Reportable 03/30/17 03:50 Malaria parasites Not Reportable 03/30/17 03:50 [place] Bodies Not Reportable 03/30/17 03:50 Hem Pathologist Commnt No 03/30/17 03:50 PT 15.8 Sec. (12.2-14.9) H 03/29/17 11:35 INR 1.20 (0.87-1.13) H 03/29/17 11:35 APTT 34.8 Sec. (24.2-36.6) 03/29/17 11:35 Activated Clotting Time 92 (74-137) 03/29/17 17:47 POC ABG pH 7.517 (7.35-7.45) H 04/07/17 11:45 POC ABG pCO2 32.1 (35-45) L 04/07/17 11:45 POC ABG pO2 93 (80-105) 04/07/17 11:45 POC ABG HCO3 26.0 04/07/17 11:45 POC ABG Total CO2 27 04/07/17 11:45 POC ABG O2 Sat 98 04/07/17 11:45 POC ABG Base Excess 3 04/07/17 11:45 FiO2 35 % 04/07/17 11:45 Sodium 147 mmol/L (137-145) H 04/09/17 08:20 Potassium 3.8 mmol/L (3.6-5.0) 04/09/17 08:20 Chloride 108.8 mmol/L (98-107) H 04/09/17 08:20 Carbon Dioxide 26 mmol/L (22-30) 04/09/17 08:20 Anion Gap 16 mmol/L 04/09/17 08:20 BUN 39 mg/dL (9-20) H 04/09/17 08:20 Creatinine 0.5 mg/dL (0.8-1.5) L 04/09/17 08:20 Estimated GFR > 60 ml/min 04/09/17 08:20 BUN/Creatinine Ratio 78 % 04/09/17 08:20 Glucose 138 mg/dL (75-100) H 04/09/17 08:20 POC Glucose 129 (70-105) H 04/08/17 17:44 Calcium 8.4 mg/dL (8.4-10.2) 04/09/17 08:20 Total Bilirubin 0.50 mg/dL (0.1-1.2) 03/29/17 11:35 AST 32 units/L (5-40) 03/29/17 11:35 ALT 25 units/L (7-56) 03/29/17 11:35 Alkaline Phosphatase 112 units/L (35-129) 03/29/17 11:35 Total Creatine Kinase 7963 units/L (55-170) H 03/30/17 03:50 CK-MB (CK-2) > 300.0 ng/mL (0.0-4.0) H 03/30/17 03:50 CK-MB (CK-2) Rel Index 3.7 (0-4) 03/30/17 03:50 Troponin T 6.850 ng/mL (0.00-0.029) H* 03/30/17 03:50 C-Reactive Protein 21.80 mg/dL (0.00-1.30) H 03/30/17 16:04 Total Protein 6.1 g/dL (6.3-8.2) L 03/29/17 11:35 Albumin 3.5 g/dL (3.9-5) L 03/29/17 11:35 Albumin/Globulin Ratio 1.3 % 03/29/17 11:35 Triglycerides 151 mg/dL (2-149) H 04/01/17 04:29 Cholesterol 164 mg/dL (50-199) 03/29/17 19:52 LDL Cholesterol Direct 81 mg/dL (50-130) 03/29/17 19:52 HDL Cholesterol 44 mg/dL (40-59) 03/29/17 19:52 Cholesterol/HDL Ratio 3.72 % 03/29/17 19:52 Urine Color Yellow (Yellow) 03/30/17 09:45 Urine Turbidity Turbid (Clear) 03/30/17 09:45 Urine pH 5.0 (5.0-7.0) 03/30/17 09:45 Ur Specific [place] 1.031 (1.003-1.030) H 03/30/17 09:45 Urine Protein 30 mg/dl mg/dL (Negative) 03/30/17 09:45 Urine Glucose (UA) Neg mg/dL (Negative) 03/30/17 09:45 Urine Ketones 20 mg/dL (Negative) 03/30/17 09:45 Urine Blood Mod (Negative) 03/30/17 09:45 Urine Nitrite Neg (Negative) 03/30/17 09:45 Urine Bilirubin Neg (Negative) 03/30/17 09:45 Urine Urobilinogen < 2.0 mg/dL (<2.0) 03/30/17 09:45 Ur Leukocyte Esterase Tr (Negative) 03/30/17 09:45 Urine WBC (Auto) 1.0 /HPF (0.0-6.0) 03/30/17 09:45 Urine RBC (Auto) 14.0 /HPF (0.0-6.0) 03/30/17 09:45 Amorphous Crystals 1+ 03/30/17 09:45 Urine Opiates Screen Presumptive negative 03/30/17 09:45 Urine Methadone Screen Presumptive negative 03/30/17 09:45 Ur Barbiturates Screen Presumptive negative 03/30/17 09:45 Ur Phencyclidine Scrn Presumptive negative 03/30/17 09:45 Ur Amphetamines Screen Presumptive positive 03/30/17 09:45 U Benzodiazepines Scrn Presumptive positive 03/30/17 09:45 Urine Cocaine Screen Presumptive negative 03/30/17 09:45 U Marijuana (THC) Screen Presumptive negative 03/30/17 09:45 Drugs of Abuse Note Disclamer 03/30/17 09:45 Blood Type O POSITIVE 03/29/17 11:35 Antibody Screen Negative 03/29/17 11:35
[2017-04-09] MEDS: ZESTRIL PO SCH (10:16)
[2017-04-09] MEDS: PLAVIX PO SCH (10:16)
[2017-04-09] MEDS: CORDARONE PO SCH ×2 (10:17→22:25)
[2017-04-09] MEDS: HEPARIN SUB-Q SCH ×2 (10:18→22:25)
[2017-04-09] MEDS: ZYVOX PO SCH ×2 (10:18→22:25)
[2017-04-09] MEDS: PROTONIX FEEDTUBE SCH (10:18)
[2017-04-09] MEDS: ASPIRIN PO SCH (10:36)
[2017-04-09] MEDS: ASPIRIN PR SCH (10:58)
--- NOTE | 2017-04-09 12:38 | Progress Note ---
Assessment and Plan Out of hospital Dana-infarct VF arrest Acute anterior STEMI s/p PCI of the LAD using BM stents deployed. reduced LVEF 30-35% by echocardiogram. Respiratory failure intubated on the vent Severe anoxic brain injury Pneumonia: MRSA Recommend: Continue current supportive therapy. Overall prognosis is very poor. Subjective Date of service: 04/09/17 Principal diagnosis: septic shock Interval history: No acute events. Remains unresponsive Telemetry consistent with NSR and frequent atrial ectopy. Objective Vital Signs Temp Pulse Pulse Pulse Pulse Resp BP 04/09/17 12:00 122 H 106 H 24 91/65 04/09/17 11:58 99.3 F 04/09/17 11:45 85 96/65 04/09/17 11:00 84 25 H 96/59 04/09/17 10:17 99/63 04/09/17 10:16 112 H 99/63 04/09/17 10:00 99 H 21 99/63 04/09/17 09:00 91 H 24 100/67 04/09/17 08:09 113 H 107/62 04/09/17 08:00 98.9 F 95 H 81 26 H 107/62 04/09/17 07:59 86 107/62 04/09/17 07:00 84 18 98/56 04/09/17 06:00 98 H 16 96/61 04/09/17 05:03 82 99/49 04/09/17 05:00 103 H 18 95/56 04/09/17 04:06 85 95/59 04/09/17 04:00 98.7 F 82 19 95/59 04/09/17 03:00 93 H 14 94/59 04/09/17 02:00 82 25 H 88/53 04/09/17 01:38 82 94/54 04/09/17 01:00 100 H 19 94/54 04/09/17 00:00 99.2 F 96 H 15 93/58 04/08/17 23:30 88 89/53 04/08/17 23:00 103 H 18 89/53 04/08/17 22:07 131 H 89/53 04/08/17 22:00 88 26 H 91/44 04/08/17 21:00 98 H 28 H 95/53 04/08/17 20:00 99.4 F 86 95 H 98 H 91 H 27 H 91/43 04/08/17 19:08 110 H 88/52 04/08/17 19:00 94 H 24 91/49 04/08/17 18:04 87 13 94/50 04/08/17 18:00 90 12 94/50 04/08/17 17:14 87 91/52 04/08/17 17:00 101 H 12 91/52 04/08/17 16:00 99.1 F 89 12 95/54 04/08/17 15:26 86 106/52 04/08/17 15:00 84 13 106/52 04/08/17 14:30 87 27 H 101/57 04/08/17 14:00 123 H 27 H 94/57 04/08/17 13:30 88 27 H 97/55 04/08/17 13:00 114 H 28 H 96/65 04/08/17 12:58 97 H 96/65 Pulse Ox 04/09/17 12:00 93 04/09/17 11:58 04/09/17 11:45 97 04/09/17 11:00 94 04/09/17 10:17 04/09/17 10:16 04/09/17 10:00 92 04/09/17 09:00 95 04/09/17 08:09 04/09/17 08:00 97 04/09/17 07:59 97 04/09/17 07:00 92 04/09/17 06:00 91 04/09/17 05:03 04/09/17 05:00 94 04/09/17 04:06 98 04/09/17 04:00 98 04/09/17 03:00 04/09/17 02:00 93 04/09/17 01:38 04/09/17 01:00 95 04/09/17 00:00 96 04/08/17 23:30 97 04/08/17 23:00 93 04/08/17 22:07 04/08/17 22:00 94 04/08/17 21:00 04/08/17 20:00 97 04/08/17 19:08 04/08/17 19:00 95 04/08/17 18:04 98 04/08/17 18:00 95 04/08/17 17:14 99 04/08/17 17:00 94 04/08/17 16:00 91 04/08/17 15:26 04/08/17 15:00 93 04/08/17 14:30 95 04/08/17 14:00 96 04/08/17 13:30 94 04/08/17 13:00 93 04/08/17 12:58 99 - Physical Examination General: Other (unresponsive on the vent) HEENT: Positive: Other (unresponsive, vent) Neck: Positive: neck supple, trachea midline. Negative: JVD/HJR Cardiac: Positive: Irregularly Regular. Negative: Audible Murmur Lungs: Positive: Rhonchi Neuro: Positive: Other (unresponsive post VF arrest) Abdomen: Positive: Soft, Active Bowel Sounds Skin: Positive: Clear Extremities: Absent: edema - Labs and Meds Comprehensive Metabolic Panel 04/09/17 Range/Units 08:20 Sodium 147 H (137-145) mmol/L Potassium 3.8 (3.6-5.0) mmol/L Chloride 108.8 H (98-107) mmol/L Carbon Dioxide 26 (22-30) mmol/L BUN 39 H (9-20) mg/dL Creatinine 0.5 L (0.8-1.5) mg/dL Glucose 138 H (75-100) mg/dL Calcium 8.4 (8.4-10.2) mg/dL
--- NOTE | 2017-04-09 17:45 | Progress Note ---
Assessment and Plan Out of hospital Vfib arrest Hypoxic encephalopathy. Neurology comments noted and appreciate input.Consistent with severe event,poor prognosis STEMI Chest x-rays with residual infiltrate, possibly residual vascular congestion s/p LHC with stent placement Fever. Still active. Central injury/pneumonia Sputum culture positive for MRSA.+ infiltratrate RLL per CXR report Recommendations Continue ABX Continue fever measures Aprreciate neuro input Trach and PEG this week Discussed with family Subjective Date of service: 04/09/17 Principal diagnosis: septic shock Interval history: No change remain unresponsive on mechanical ventilator. Orally intubated. Objective Vital Signs - 12hr 04/09/17 04/09/17 04/09/17 06:00 07:00 07:59 Temperature Pulse Rate 98 H 84 86 Pulse Rate [ From Monitor] Respiratory 16 18 Rate Blood Pressure 96/61 98/56 107/62 O2 Sat by Pulse 91 92 97 Oximetry 04/09/17 04/09/17 04/09/17 08:00 08:09 09:00 Temperature 98.9 F Pulse Rate 95 H 113 H 91 H Pulse Rate [ 81 From Monitor] Respiratory 26 H 24 Rate Blood Pressure 107/62 107/62 100/67 O2 Sat by Pulse 97 95 Oximetry 04/09/17 04/09/17 04/09/17 10:00 10:16 10:17 Temperature Pulse Rate 99 H 112 H Pulse Rate [ From Monitor] Respiratory 21 Rate Blood Pressure 99/63 99/63 99/63 O2 Sat by Pulse 92 Oximetry 04/09/17 04/09/17 04/09/17 11:00 11:45 11:58 Temperature 99.3 F Pulse Rate 84 85 Pulse Rate [ From Monitor] Respiratory 25 H Rate Blood Pressure 96/59 96/65 O2 Sat by Pulse 94 97 Oximetry 04/09/17 04/09/17 04/09/17 12:00 13:00 13:47 Temperature Pulse Rate 122 H 111 H 85 Pulse Rate [ 106 H From Monitor] Respiratory 24 26 H Rate Blood Pressure 91/65 92/65 92/65 O2 Sat by Pulse 93 96 Oximetry 04/09/17 04/09/17 04/09/17 14:00 15:00 15:38 Temperature 99.1 F Pulse Rate 126 H 89 Pulse Rate [ From Monitor] Respiratory 33 H 23 Rate Blood Pressure 99/72 101/59 O2 Sat by Pulse 78 L 97 Oximetry 04/09/17 04/09/17 04/09/17 16:00 16:34 17:01 Temperature Pulse Rate 100 H 92 H 124 H Pulse Rate [ 100 H From Monitor] Respiratory 27 H 26 H Rate Blood Pressure 90/59 90/56 91/66 O2 Sat by Pulse 98 98 97 Oximetry 04/09/17 04/09/17 17:17 17:18 Temperature Pulse Rate 92 H 92 H Pulse Rate [ From Monitor] Respiratory Rate Blood Pressure 91/66 91/66 O2 Sat by Pulse Oximetry Constitutional: comatose Eyes: injected, other (pinpoint pupils equal and non reactive) ENT: other (orally intubated, ) Neck: supple, no JVD Effort: normal Ascultation: Bilateral: clear, diminished breath sounds ( ) Percussion: Bilateral: not dull Cardiovascular: regular rate and rhythm Gastrointestinal: hypoactive bowel sounds, other (mild distention) Integumentary: other (multiple tattoos) Extremities: no cyanosis Neurologic: unable to assess, other (no posturing on physical examination and stimulation,irregular breathing) CBC and BMP: 04/03/17 12:16 04/09/17 08:20 ABG, PT/INR, D-dimer: ABG POC ABG pH 7.517 (7.35-7.45) H 04/07/17 11:45 POC ABG pCO2 32.1 (35-45) L 04/07/17 11:45 POC ABG pO2 93 (80-105) 04/07/17 11:45 POC ABG HCO3 26.0 04/07/17 11:45 POC ABG Total CO2 27 04/07/17 11:45 POC ABG O2 Sat 98 04/07/17 11:45 PT/INR, D-dimer PT 15.8 Sec. (12.2-14.9) H 03/29/17 11:35 INR 1.20 (0.87-1.13) H 03/29/17 11:35 Abnormal lab findings: Abnormal Labs 03/29/17 03/29/17 03/29/17 11:35 11:35 11:40 WBC MCV 98 H MCH 33 H Plt Count Lymph % (Auto) Lymph # Seg Neutrophils % Lymphocytes % (Manual) Monocytes % (Manual) 9.0 H Nucleated RBC % 1.0 H Seg Neutrophils # Seg Neutrophils # Man Monocytes # (Manual) 0.9 H PT 15.8 H INR 1.20 H Activated Clotting Time POC ABG pH POC ABG pCO2 POC ABG pO2 Sodium Potassium 2.7 L* Chloride 95.3 L Carbon Dioxide 17 L BUN Creatinine Glucose 435 H POC Glucose Calcium Total Creatine Kinase CK-MB (CK-2) CK-MB (CK-2) Rel Index Troponin T C-Reactive Protein Total Protein 6.1 L Albumin 3.5 L Triglycerides Ur Specific [place] 03/29/17 03/29/17 03/29/17 12:34 13:10 13:25 WBC MCV MCH Plt Count Lymph % (Auto) Lymph # Seg Neutrophils % Lymphocytes % (Manual) Monocytes % (Manual) Nucleated RBC % Seg Neutrophils # Seg Neutrophils # Man Monocytes # (Manual) PT INR Activated Clotting Time 142 H 169 H 175 H POC ABG pH POC ABG pCO2 POC ABG pO2 Sodium Potassium Chloride Carbon Dioxide BUN Creatinine Glucose POC Glucose Calcium Total Creatine Kinase CK-MB (CK-2) CK-MB (CK-2) Rel Index Troponin T C-Reactive Protein Total Protein Albumin Triglycerides Ur Specific [place] 03/29/17 03/29/17 03/29/17 14:50 15:18 19:52 WBC MCV MCH Plt Count Lymph % (Auto) Lymph # Seg Neutrophils % Lymphocytes % (Manual) Monocytes % (Manual) Nucleated RBC % Seg Neutrophils # Seg Neutrophils # Man Monocytes # (Manual) PT INR Activated Clotting Time 175 H POC ABG pH 7.293 L POC ABG pCO2 POC ABG pO2 602 H Sodium Potassium Chloride Carbon Dioxide BUN Creatinine Glucose POC Glucose Calcium Total Creatine Kinase 7263 H CK-MB (CK-2) > 300.0 H CK-MB (CK-2) Rel Index 4.1 H Troponin T 8.080 H* D C-Reactive Protein Total Protein Albumin Triglycerides 195 H Ur Specific [place] 03/30/17 03/30/17 03/30/17 03:50 03:50 06:19 WBC 19.5 H MCV MCH Plt Count Lymph % (Auto) Lymph # Seg Neutrophils % Lymphocytes % (Manual) 7.0 L Monocytes % (Manual) Nucleated RBC % Seg Neutrophils # Seg Neutrophils # Man 12.7 H Monocytes # (Manual) 1.4 H PT INR Activated Clotting Time POC ABG pH POC ABG pCO2 28.2 L POC ABG pO2 108 H Sodium Potassium Chloride 108.9 H Carbon Dioxide 15 L BUN 25 H Creatinine Glucose 158 H POC Glucose Calcium 8.1 L Total Creatine Kinase 7963 H CK-MB (CK-2) > 300.0 H CK-MB (CK-2) Rel Index Troponin T 6.850 H* C-Reactive Protein Total Protein Albumin Triglycerides Ur Specific [place] 03/30/17 03/30/17 03/31/17 09:45 16:04 02:19 WBC MCV MCH Plt Count Lymph % (Auto) Lymph # Seg Neutrophils % Lymphocytes % (Manual) Monocytes % (Manual) Nucleated RBC % Seg Neutrophils # Seg Neutrophils # Man Monocytes # (Manual) PT INR Activated Clotting Time POC ABG pH POC ABG pCO2 POC ABG pO2 Sodium Potassium Chloride Carbon Dioxide BUN Creatinine Glucose POC Glucose 137 H Calcium Total Creatine Kinase CK-MB (CK-2) CK-MB (CK-2) Rel Index Troponin T C-Reactive Protein 21.80 H Total Protein Albumin Triglycerides Ur Specific [place] 1.031 H 03/31/17 03/31/17 03/31/17 03:57 06:54 09:22 WBC MCV MCH Plt Count Lymph % (Auto) Lymph # Seg Neutrophils % Lymphocytes % (Manual) Monocytes % (Manual) Nucleated RBC % Seg Neutrophils # Seg Neutrophils # Man Monocytes # (Manual) PT INR Activated Clotting Time POC ABG pH 7.475 H POC ABG pCO2 25.4 L POC ABG pO2 62 L Sodium Potassium Chloride Carbon Dioxide 19 L BUN 22 H Creatinine 0.6 L Glucose 148 H POC Glucose 143 H Calcium 8.3 L Total Creatine Kinase CK-MB (CK-2) CK-MB (CK-2) Rel Index Troponin T C-Reactive Protein Total Protein Albumin Triglycerides Ur Specific [place] 03/31/17 03/31/17 03/31/17 11:40 17:47 23:38 WBC MCV MCH Plt Count Lymph % (Auto) Lymph # Seg Neutrophils % Lymphocytes % (Manual) Monocytes % (Manual) Nucleated RBC % Seg Neutrophils # Seg Neutrophils # Man Monocytes # (Manual) PT INR Activated Clotting Time POC ABG pH POC ABG pCO2 POC ABG pO2 Sodium Potassium Chloride Carbon Dioxide BUN Creatinine Glucose POC Glucose 127 H 137 H 148 H Calcium Total Creatine Kinase CK-MB (CK-2) CK-MB (CK-2) Rel Index Troponin T C-Reactive Protein Total Protein Albumin Triglycerides Ur Specific [place] 04/01/17 04/01/17 04/01/17 04:29 05:01 11:54 WBC MCV MCH Plt Count Lymph % (Auto) Lymph # Seg Neutrophils % Lymphocytes % (Manual) Monocytes % (Manual) Nucleated RBC % Seg Neutrophils # Seg Neutrophils # Man Monocytes # (Manual) PT INR Activated Clotting Time POC ABG pH 7.513 H POC ABG pCO2 22.1 L POC ABG pO2 64 L Sodium Potassium Chloride Carbon Dioxide BUN Creatinine Glucose POC Glucose 121 H Calcium Total Creatine Kinase CK-MB (CK-2) CK-MB (CK-2) Rel Index Troponin T C-Reactive Protein Total Protein Albumin Triglycerides 151 H Ur Specific [place] 04/01/17 04/02/17 04/02/17 18:17 00:11 04:52 WBC MCV MCH Plt Count Lymph % (Auto) Lymph # Seg Neutrophils % Lymphocytes % (Manual) Monocytes % (Manual) Nucleated RBC % Seg Neutrophils # Seg Neutrophils # Man Monocytes # (Manual) PT INR Activated Clotting Time POC ABG pH 7.524 H POC ABG pCO2 25.5 L POC ABG pO2 66 L Sodium Potassium Chloride Carbon Dioxide BUN Creatinine Glucose POC Glucose 117 H 122 H Calcium Total Creatine Kinase CK-MB (CK-2) CK-MB (CK-2) Rel Index Troponin T C-Reactive Protein Total Protein Albumin Triglycerides Ur Specific [place] 04/02/17 04/02/17 04/02/17 05:18 10:41 12:19 WBC MCV MCH Plt Count Lymph % (Auto) Lymph # Seg Neutrophils % Lymphocytes % (Manual) Monocytes % (Manual) Nucleated RBC % Seg Neutrophils # Seg Neutrophils # Man Monocytes # (Manual) PT INR Activated Clotting Time POC ABG pH 7.534 H POC ABG pCO2 27.4 L POC ABG pO2 Sodium Potassium Chloride Carbon Dioxide BUN Creatinine Glucose POC Glucose 132 H 129 H Calcium Total Creatine Kinase CK-MB (CK-2) CK-MB (CK-2) Rel Index Troponin T C-Reactive Protein Total Protein Albumin Triglycerides Ur Specific [place] 04/02/17 04/03/17 04/03/17 18:05 00:08 05:09 WBC MCV MCH Plt Count Lymph % (Auto) Lymph # Seg Neutrophils % Lymphocytes % (Manual) Monocytes % (Manual) Nucleated RBC % Seg Neutrophils # Seg Neutrophils # Man Monocytes # (Manual) PT INR Activated Clotting Time POC ABG pH 7.455 H POC ABG pCO2 33.2 L POC ABG pO2 120 H Sodium Potassium Chloride Carbon Dioxide BUN Creatinine Glucose POC Glucose 136 H 128 H Calcium Total Creatine Kinase CK-MB (CK-2) CK-MB (CK-2) Rel Index Troponin T C-Reactive Protein Total Protein Albumin Triglycerides Ur Specific [place] 04/03/17 04/03/17 04/03/17 06:32 11:54 12:16 WBC 11.9 H MCV MCH Plt Count 125 L Lymph % (Auto) 4.8 L Lymph # 0.6 L Seg Neutrophils % 86.7 H Lymphocytes % (Manual) Monocytes % (Manual) Nucleated RBC % Seg Neutrophils # 10.3 H Seg Neutrophils # Man Monocytes # (Manual) PT INR Activated Clotting Time POC ABG pH POC ABG pCO2 POC ABG pO2 Sodium Potassium Chloride Carbon Dioxide BUN Creatinine Glucose POC Glucose 138 H 143 H Calcium Total Creatine Kinase CK-MB (CK-2) CK-MB (CK-2) Rel Index Troponin T C-Reactive Protein Total Protein Albumin Triglycerides Ur Specific [place] 04/03/17 04/03/17 04/04/17 17:33 23:59 04:34 WBC MCV MCH Plt Count Lymph % (Auto) Lymph # Seg Neutrophils % Lymphocytes % (Manual) Monocytes % (Manual) Nucleated RBC % Seg Neutrophils # Seg Neutrophils # Man Monocytes # (Manual) PT INR Activated Clotting Time POC ABG pH 7.457 H POC ABG pCO2 29.8 L POC ABG pO2 76 L Sodium Potassium Chloride Carbon Dioxide BUN Creatinine Glucose POC Glucose 130 H 155 H Calcium Total Creatine Kinase CK-MB (CK-2) CK-MB (CK-2) Rel Index Troponin T C-Reactive Protein Total Protein Albumin Triglycerides Ur Specific [place] 04/04/17 04/04/17 04/04/17 05:27 12:22 18:18 WBC MCV MCH Plt Count Lymph % (Auto) Lymph # Seg Neutrophils % Lymphocytes % (Manual) Monocytes % (Manual) Nucleated RBC % Seg Neutrophils # Seg Neutrophils # Man Monocytes # (Manual) PT INR Activated Clotting Time POC ABG pH POC ABG pCO2 POC ABG pO2 Sodium Potassium Chloride Carbon Dioxide BUN Creatinine Glucose POC Glucose 164 H 146 H 130 H Calcium Total Creatine Kinase CK-MB (CK-2) CK-MB (CK-2) Rel Index Troponin T C-Reactive Protein Total Protein Albumin Triglycerides Ur Specific [place] 04/05/17 04/05/17 04/05/17 04:43 05:28 11:36 WBC MCV MCH Plt Count Lymph % (Auto) Lymph # Seg Neutrophils % Lymphocytes % (Manual) Monocytes % (Manual) Nucleated RBC % Seg Neutrophils # Seg Neutrophils # Man Monocytes # (Manual) PT INR Activated Clotting Time POC ABG pH 7.479 H POC ABG pCO2 33.5 L POC ABG pO2 76 L Sodium Potassium Chloride Carbon Dioxide BUN Creatinine Glucose POC Glucose 145 H 136 H Calcium Total Creatine Kinase CK-MB (CK-2) CK-MB (CK-2) Rel Index Troponin T C-Reactive Protein Total Protein Albumin Triglycerides Ur Specific [place] 04/05/17 04/06/17 04/06/17 17:58 00:16 05:26 WBC MCV MCH Plt Count Lymph % (Auto) Lymph # Seg Neutrophils % Lymphocytes % (Manual) Monocytes % (Manual) Nucleated RBC % Seg Neutrophils # Seg Neutrophils # Man Monocytes # (Manual) PT INR Activated Clotting Time POC ABG pH POC ABG pCO2 POC ABG pO2 Sodium Potassium Chloride Carbon Dioxide BUN Creatinine Glucose POC Glucose 130 H 159 H 146 H Calcium Total Creatine Kinase CK-MB (CK-2) CK-MB (CK-2) Rel Index Troponin T C-Reactive Protein Total Protein Albumin Triglycerides Ur Specific [place] 04/06/17 04/06/17 04/07/17 13:11 16:54 11:45 WBC MCV MCH Plt Count Lymph % (Auto) Lymph # Seg Neutrophils % Lymphocytes % (Manual) Monocytes % (Manual) Nucleated RBC % Seg Neutrophils # Seg Neutrophils # Man Monocytes # (Manual) PT INR Activated Clotting Time POC ABG pH 7.517 H POC ABG pCO2 32.1 L POC ABG pO2 Sodium Potassium Chloride Carbon Dioxide BUN Creatinine Glucose POC Glucose 132 H 123 H Calcium Total Creatine Kinase CK-MB (CK-2) CK-MB (CK-2) Rel Index Troponin T C-Reactive Protein Total Protein Albumin Triglycerides Ur Specific [place] 04/07/17 04/07/17 04/07/17 12:51 17:40 23:55 WBC MCV MCH Plt Count Lymph % (Auto) Lymph # Seg Neutrophils % Lymphocytes % (Manual) Monocytes % (Manual) Nucleated RBC % Seg Neutrophils # Seg Neutrophils # Man Monocytes # (Manual) PT INR Activated Clotting Time POC ABG pH POC ABG pCO2 POC ABG pO2 Sodium Potassium Chloride Carbon Dioxide BUN Creatinine Glucose POC Glucose 138 H 154 H 143 H Calcium Total Creatine Kinase CK-MB (CK-2) CK-MB (CK-2) Rel Index Troponin T C-Reactive Protein Total Protein Albumin Triglycerides Ur Specific [place] 04/08/17 04/08/17 04/08/17 05:27 11:14 17:44 WBC MCV MCH Plt Count Lymph % (Auto) Lymph # Seg Neutrophils % Lymphocytes % (Manual) Monocytes % (Manual) Nucleated RBC % Seg Neutrophils # Seg Neutrophils # Man Monocytes # (Manual) PT INR Activated Clotting Time POC ABG pH POC ABG pCO2 POC ABG pO2 Sodium Potassium Chloride Carbon Dioxide BUN Creatinine Glucose POC Glucose 142 H 153 H 129 H Calcium Total Creatine Kinase CK-MB (CK-2) CK-MB (CK-2) Rel Index Troponin T C-Reactive Protein Total Protein Albumin Triglycerides Ur Specific [place] 04/09/17 04/09/17 08:20 11:21 WBC MCV MCH Plt Count Lymph % (Auto) Lymph # Seg Neutrophils % Lymphocytes % (Manual) Monocytes % (Manual) Nucleated RBC % Seg Neutrophils # Seg Neutrophils # Man Monocytes # (Manual) PT INR Activated Clotting Time POC ABG pH POC ABG pCO2 POC ABG pO2 Sodium 147 H Potassium Chloride 108.8 H Carbon Dioxide BUN 39 H Creatinine 0.5 L Glucose 138 H POC Glucose 152 H Calcium Total Creatine Kinase CK-MB (CK-2) CK-MB (CK-2) Rel Index Troponin T C-Reactive Protein Total Protein Albumin Triglycerides Ur Specific [place]
[2017-04-10] MEDS: LOPRESSOR PO SCH ×3 (01:11→22:34)
[2017-04-10 04:50] LABS: Basophils % (Auto) 0.3 % (0.0-1.8); Eosinophils # (Auto) 0.2 K/mm3 (0.0-0.4); Hematocrit 35.5 % (35.5-45.6); Hemoglobin 11.5 gm/dl (11.8-15.2); Lymphocytes # (Auto) 1.2 K/mm3 (1.2-5.4); Lymphocytes % (Auto) 11.1 % (13.4-35.0); Mean Corpuscular HGB Conc 32 % (32-34); Mean Corpuscular Hemoglobin 31 pg (28-32); Mean Corpuscular Volume 96 fl (84-94); Monocytes # (Auto) 0.5 K/mm3 (0.0-0.8); Monocytes % (Auto) 5.1 % (0.0-7.3); Platelet Count 103 K/mm3 (140-440); Red Cell Distribution Width 14.4 % (13.2-15.2)
[2017-04-10 05:00] LABS: INR 1.11 (0.87-1.13)
[2017-04-10 05:01] LABS: Partial Thromboplastin Time 27.8 Sec. (24.2-36.6)
[2017-04-10 05:02] LABS: Alanine Aminotransferase 228 units/L (7-56); Albumin 2.8 g/dL (3.9-5); BUN/Creatinine Ratio 72; Blood Urea Nitrogen 36 mg/dL (9-20); Calcium 8.1 mg/dL (8.4-10.2); Hemolysis Index 4
[2017-04-10] MEDS: NITRO-BID 2% TP SCH ×4 (05:59→18:16)
[2017-04-10] MEDS: ASPIRIN PO SCH (09:23)
[2017-04-10] MEDS: ZESTRIL PO SCH (09:23)
[2017-04-10] MEDS: PLAVIX PO SCH (09:23)
[2017-04-10] MEDS: CORDARONE PO SCH ×2 (09:23→22:33)
[2017-04-10] MEDS: PROTONIX FEEDTUBE SCH (09:23)
[2017-04-10] MEDS: ZYVOX PO SCH ×2 (09:23→22:35)
[2017-04-10] MEDS: HEPARIN SUB-Q SCH ×2 (09:23→22:33)
--- NOTE | 2017-04-10 10:09 | Progress Note ---
Assessment and Plan Out of hospital VF arrest Acute anterior STEMI s/p PCI of the LAD using BM stents deployed. reduced LVEF 30-35% by echocardiogram. Respiratory failure intubated on the vent Anoxic brain injury Pneumonia: MRSA Supportive management. Subjective Date of service: 04/10/17 Principal diagnosis: septic shock Interval history: Patient remains intubated, unresponsive on the vent. Telemetry consistent with NSR and frequent atrial ectopy. Objective Vital Signs Temp Pulse Pulse Resp BP Pulse Ox 04/10/17 09:25 113 H 103/62 04/10/17 09:23 113 H 103/62 04/10/17 08:23 102 H 97/58 95 04/10/17 08:00 99 F 90 27 H 97/58 94 04/10/17 07:00 121 H 27 H 112/76 94 04/10/17 06:00 127 H 29 H 114/60 95 04/10/17 05:01 124 H 26 H 105/55 97 04/10/17 04:01 119 H 31 H 102/60 96 04/10/17 04:00 99.1 F 120 H 26 H 95 04/10/17 03:45 113 H 101/56 96 04/10/17 03:00 89 28 H 101/56 96 04/10/17 02:00 90 24 104/63 98 04/10/17 01:11 91 H 95/53 04/10/17 01:00 87 26 H 102/59 97 04/10/17 00:00 99.2 F 90 90 26 H 95/53 96 04/09/17 23:41 89 95/53 99 04/09/17 23:11 92 H 26 H 98/53 99 04/09/17 23:00 91 H 27 H 98/53 97 04/09/17 22:00 103 H 28 H 99/71 97 04/09/17 21:00 99.5 F 125 H 120 H 26 H 98/70 95 04/09/17 20:00 94 H 29 H 97/58 97 04/09/17 19:41 150 H 107/64 04/09/17 19:37 118 H 107/64 100 04/09/17 19:00 134 H 31 H 103/62 95 04/09/17 18:00 97 H 26 H 105/58 96 04/09/17 17:18 92 H 91/66 04/09/17 17:17 92 H 91/66 04/09/17 17:01 124 H 26 H /66 97 04/09/17 16:34 92 H 90/56 98 04/09/17 16:00 100 H 100 H 27 H 90/59 98 04/09/17 15:38 99.1 F 04/09/17 15:00 89 23 101/59 97 04/09/17 14:00 126 H 33 H 99/72 78 L 04/09/17 13:47 85 92/65 04/09/17 13:00 111 H 26 H 92/65 96 04/09/17 12:00 122 H 106 H 24 91/65 93 04/09/17 11:58 99.3 F 04/09/17 11:45 85 96/65 97 04/09/17 11:00 84 25 H 96/59 94 04/09/17 10:17 99/63 04/09/17 10:16 112 H 99/63 - Physical Examination General: Other (unresponsive on the vent) Cardiac: Positive: Reg Rate and Rhythm - Labs and Meds Cardiac Enzymes 04/10/17 Range/Units 04:16 AST 206 H (5-40) units/L Coagulation 04/10/17 Range/Units 04:16 PT 14.9 (12.2-14.9) Sec. INR 1.11 (0.87-1.13) APTT 27.8 (24.2-36.6) Sec. CBC 04/10/17 Range/Units 04:16 WBC 10.8 (4.5-11.0) K/mm3 RBC 3.70 (3.65-5.03) M/mm3 Hgb 11.5 L (11.8-15.2) gm/dl Hct 35.5 (35.5-45.6) % Plt Count 103 L (140-440) K/mm3 Lymph # 1.2 (1.2-5.4) K/mm3 Dick[place] # 0.5 (0.0-0.8) K/mm3 Eos # 0.2 (0.0-0.4) K/mm3 Baso # 0.0 (0.0-0.1) K/mm3 Comprehensive Metabolic Panel 04/10/17 Range/Units 04:16 Sodium 148 H (137-145) mmol/L Potassium 3.9 (3.6-5.0) mmol/L Chloride 109.0 H (98-107) mmol/L Carbon Dioxide 23 (22-30) mmol/L BUN 36 H (9-20) mg/dL Creatinine 0.5 L (0.8-1.5) mg/dL Glucose 131 H (75-100) mg/dL Calcium 8.1 L (8.4-10.2) mg/dL AST 206 H (5-40) units/L ALT 228 H (7-56) units/L Alkaline Phosphatase 178 H (35-129) units/L Total Protein 6.7 (6.3-8.2) g/dL Albumin 2.8 L (3.9-5) g/dL
--- NOTE | 2017-04-10 10:22 | Progress Note ---
Assessment and Plan Assessment: 1) S/P VT cardiac arrest due to STEMI: 100% LAD occlusion s/p angioplasty and stent 2) Sepsis: resolved. Etiology likely MRSA pneumonia? central ? pansinusitis. CRP=21 3) Encephalopathy: likely severe anoxic injury. CT head unremarkable 4) Bilateral pneumonia: MRSA 5) Amph abuse ? 6) Extensive pansinusitis Plan: -continue zyvox day 7 of 7 -last day -contact isolation -monitor off antibiotics I am signing off Thank you Dr Garay for your consultation, will follow up with you. Alla Arana MD Infectious Diseases Specialist [facility] ([facility]) M [phone] O [phone] Subjective Date of service: 04/10/17 Principal diagnosis: septic shock Interval history: Remains critically ill, still intubated sedated on propofol, no fever Microbiology: Urine culture: 03/30 neg Blood cultures: 03/31 neg Tracheal asp 03/31 MRSA 04/02 MRSA Current Antimicrobials: zyvox 04/04 Previous Antimicrobials: Zosyn 03/30 Vancomycin 04/03 Objective - Exam Narrative Exam: General appearance: sedated intubated Eyes: icteric sclerae, edematous conjunctivae; no lid-lag; PERRLA HENT: Atraumatic; oropharynx +ETT with thick green secretions +NGT Neck: Trachea midline; supple, no thyromegaly or lymphadenopathy Lungs: valeria loud crackles CV: RRR, no murmurs Abdomen: Soft, non-tender Extremities: valeria edema Skin: Normal temperature, turgor and texture; no rash, ulcers or subcutaneous nodules Psych: sedated. Neuro: sedated Lines: No CVL / PICC - Constitutional Vitals: Vital Signs Temp Pulse Resp BP Pulse Ox 99 F 113 H 27 H 103/62 95 04/10/17 08:00 04/10/17 09:25 04/10/17 08:00 04/10/17 09:25 04/10/17 08:23 Temperature -Last 24 Hours Temperature 99 F Temperature 99.1 F Temperature 99.2 F Temperature 99.5 F Temperature 99.1 F Temperature 99.3 F - Labs CBC & Chem 7: 04/10/17 04:16 04/10/17 04:16 Labs: Abnormal lab results 04/09/17 04/09/17 04/10/17 Range/Units 11:21 17:37 00:13 Hgb (11.8-15.2) gm/dl MCV (84-94) fl Plt Count (140-440) K/mm3 Lymph % (Auto) (13.4-35.0) % Seg Neutrophils % (40.0-70.0) % Seg Neutrophils # (1.8-7.7) K/mm3 Sodium (137-145) mmol/L Chloride (98-107) mmol/L BUN (9-20) mg/dL Creatinine (0.8-1.5) mg/dL Glucose (75-100) mg/dL POC Glucose 152 H 109 H 127 H (70-105) Calcium (8.4-10.2) mg/dL Magnesium (1.7-2.3) mg/dL AST (5-40) units/L ALT (7-56) units/L Alkaline Phosphatase (35-129) units/L Albumin (3.9-5) g/dL 04/10/17 04/10/17 04/10/17 Range/Units 04:16 04:16 06:01 Hgb 11.5 L (11.8-15.2) gm/dl MCV 96 H (84-94) fl Plt Count 103 L (140-440) K/mm3 Lymph % (Auto) 11.1 L (13.4-35.0) % Seg Neutrophils % 81.5 H (40.0-70.0) % Seg Neutrophils # 8.8 H (1.8-7.7) K/mm3 Sodium 148 H (137-145) mmol/L Chloride 109.0 H (98-107) mmol/L BUN 36 H (9-20) mg/dL Creatinine 0.5 L (0.8-1.5) mg/dL Glucose 131 H (75-100) mg/dL POC Glucose 108 H (70-105) Calcium 8.1 L (8.4-10.2) mg/dL Magnesium 2.40 H (1.7-2.3) mg/dL AST 206 H (5-40) units/L ALT 228 H (7-56) units/L Alkaline Phosphatase 178 H (35-129) units/L Albumin 2.8 L (3.9-5) g/dL
--- NOTE | 2017-04-10 11:49 | Progress Note ---
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 1. Long discussion with sisters at bedside (Divya and Larisa). They express understanding of current mental state and have hope that the patient will one day wake up and have full recovery. With respect to this, he does not meet extubation criteria based on his mental state. The family had been approached about trach and peg earlier. They have discussed this and are all in agreement that they wish for trach and peg to be placed. Will consult, general surgery here for trach and peg placement CCT 31 minutes. Subjective Date of service: 04/10/17 Principal diagnosis: septic shock Interval history: No acute events. Sisters at bedside. Patient is off propofol. Not responsive. Objective Vital Signs - 12hr 04/10/17 04/10/17 04/10/17 00:00 01:00 01:11 Temperature 99.2 F Pulse Rate 90 87 91 H Pulse Rate [ 90 From Monitor] Respiratory 26 H 26 H Rate Blood Pressure 95/53 102/59 95/53 O2 Sat by Pulse 96 97 Oximetry 04/10/17 04/10/17 04/10/17 02:00 03:00 03:45 Temperature Pulse Rate 90 89 113 H Pulse Rate [ From Monitor] Respiratory 24 28 H Rate Blood Pressure 104/63 101/56 101/56 O2 Sat by Pulse 98 96 96 Oximetry 04/10/17 04/10/17 04/10/17 04:00 04:01 05:01 Temperature 99.1 F Pulse Rate 119 H 124 H Pulse Rate [ 120 H From Monitor] Respiratory 26 H 31 H 26 H Rate Blood Pressure 102/60 105/55 O2 Sat by Pulse 95 96 97 Oximetry 04/10/17 04/10/17 04/10/17 06:00 07:00 08:00 Temperature 99 F Pulse Rate 127 H 121 H 90 Pulse Rate [ 110 H From Monitor] Respiratory 29 H 27 H 20 Rate Blood Pressure 114/60 112/76 97/58 O2 Sat by Pulse 95 94 98 Oximetry 04/10/17 04/10/17 04/10/17 08:23 09:00 09:23 Temperature Pulse Rate 102 H 128 H 113 H Pulse Rate [ From Monitor] Respiratory 23 Rate Blood Pressure 97/58 97/58 103/62 O2 Sat by Pulse 95 98 Oximetry 04/10/17 04/10/17 04/10/17 09:25 10:00 11:00 Temperature Pulse Rate 113 H 86 80 Pulse Rate [ From Monitor] Respiratory 12 27 H Rate Blood Pressure 103/62 98/59 89/54 O2 Sat by Pulse 96 98 Oximetry 04/10/17 11:32 Temperature Pulse Rate 100 H Pulse Rate [ From Monitor] Respiratory Rate Blood Pressure O2 Sat by Pulse 96 Oximetry Constitutional: comatose Eyes: injected, other (pinpoint pupils equal and non reactive) ENT: other (orally intubated, ) Neck: supple, no JVD Effort: normal Ascultation: Bilateral: clear, diminished breath sounds ( ) Percussion: Bilateral: not dull Cardiovascular: regular rate and rhythm Gastrointestinal: hypoactive bowel sounds, other (mild distention) Integumentary: other (multiple tattoos) Extremities: no cyanosis Neurologic: unable to assess, other (no posturing on physical examination and stimulation,irregular breathing) CBC and BMP: 04/10/17 04:16 04/10/17 04:16 ABG, PT/INR, D-dimer: ABG POC ABG pH 7.517 (7.35-7.45) H 04/07/17 11:45 POC ABG pCO2 32.1 (35-45) L 04/07/17 11:45 POC ABG pO2 93 (80-105) 04/07/17 11:45 POC ABG HCO3 26.0 04/07/17 11:45 POC ABG Total CO2 27 04/07/17 11:45 POC ABG O2 Sat 98 04/07/17 11:45 PT/INR, D-dimer PT 14.9 Sec. (12.2-14.9) 04/10/17 04:16 INR 1.11 (0.87-1.13) 04/10/17 04:16 Abnormal lab findings: Abnormal Labs 03/29/17 03/29/17 03/29/17 11:35 11:35 11:40 WBC Hgb MCV 98 H MCH 33 H Plt Count Lymph % (Auto) Lymph # Seg Neutrophils % Lymphocytes % (Manual) Monocytes % (Manual) 9.0 H Nucleated RBC % 1.0 H Seg Neutrophils # Seg Neutrophils # Man Monocytes # (Manual) 0.9 H PT 15.8 H INR 1.20 H Activated Clotting Time POC ABG pH POC ABG pCO2 POC ABG pO2 Sodium Potassium 2.7 L* Chloride 95.3 L Carbon Dioxide 17 L BUN Creatinine Glucose 435 H POC Glucose Calcium Magnesium AST ALT Alkaline Phosphatase Total Creatine Kinase CK-MB (CK-2) CK-MB (CK-2) Rel Index Troponin T C-Reactive Protein Total Protein 6.1 L Albumin 3.5 L Triglycerides Ur Specific [place] 03/29/17 03/29/17 03/29/17 12:34 13:10 13:25 WBC Hgb MCV MCH Plt Count Lymph % (Auto) Lymph # Seg Neutrophils % Lymphocytes % (Manual) Monocytes % (Manual) Nucleated RBC % Seg Neutrophils # Seg Neutrophils # Man Monocytes # (Manual) PT INR Activated Clotting Time 142 H 169 H 175 H POC ABG pH POC ABG pCO2 POC ABG pO2 Sodium Potassium Chloride Carbon Dioxide BUN Creatinine Glucose POC Glucose Calcium Magnesium AST ALT Alkaline Phosphatase Total Creatine Kinase CK-MB (CK-2) CK-MB (CK-2) Rel Index Troponin T C-Reactive Protein Total Protein Albumin Triglycerides Ur Specific [place] 03/29/17 03/29/17 03/29/17 14:50 15:18 19:52 WBC Hgb MCV MCH Plt Count Lymph % (Auto) Lymph # Seg Neutrophils % Lymphocytes % (Manual) Monocytes % (Manual) Nucleated RBC % Seg Neutrophils # Seg Neutrophils # Man Monocytes # (Manual) PT INR Activated Clotting Time 175 H POC ABG pH 7.293 L POC ABG pCO2 POC ABG pO2 602 H Sodium Potassium Chloride Carbon Dioxide BUN Creatinine Glucose POC Glucose Calcium Magnesium AST ALT Alkaline Phosphatase Total Creatine Kinase 7263 H CK-MB (CK-2) > 300.0 H CK-MB (CK-2) Rel Index 4.1 H Troponin T 8.080 H* D C-Reactive Protein Total Protein Albumin Triglycerides 195 H Ur Specific [place] 03/30/17 03/30/17 03/30/17 03:50 03:50 06:19 WBC 19.5 H Hgb MCV MCH Plt Count Lymph % (Auto) Lymph # Seg Neutrophils % Lymphocytes % (Manual) 7.0 L Monocytes % (Manual) Nucleated RBC % Seg Neutrophils # Seg Neutrophils # Man 12.7 H Monocytes # (Manual) 1.4 H PT INR Activated Clotting Time POC ABG pH POC ABG pCO2 28.2 L POC ABG pO2 108 H Sodium Potassium Chloride 108.9 H Carbon Dioxide 15 L BUN 25 H Creatinine Glucose 158 H POC Glucose Calcium 8.1 L Magnesium AST ALT Alkaline Phosphatase Total Creatine Kinase 7963 H CK-MB (CK-2) > 300.0 H CK-MB (CK-2) Rel Index Troponin T 6.850 H* C-Reactive Protein Total Protein Albumin Triglycerides Ur Specific [place] 03/30/17 03/30/17 03/31/17 09:45 16:04 02:19 WBC Hgb MCV MCH Plt Count Lymph % (Auto) Lymph # Seg Neutrophils % Lymphocytes % (Manual) Monocytes % (Manual) Nucleated RBC % Seg Neutrophils # Seg Neutrophils # Man Monocytes # (Manual) PT INR Activated Clotting Time POC ABG pH POC ABG pCO2 POC ABG pO2 Sodium Potassium Chloride Carbon Dioxide BUN Creatinine Glucose POC Glucose 137 H Calcium Magnesium AST ALT Alkaline Phosphatase Total Creatine Kinase CK-MB (CK-2) CK-MB (CK-2) Rel Index Troponin T C-Reactive Protein 21.80 H Total Protein Albumin Triglycerides Ur Specific [place] 1.031 H 03/31/17 03/31/17 03/31/17 03:57 06:54 09:22 WBC Hgb MCV MCH Plt Count Lymph % (Auto) Lymph # Seg Neutrophils % Lymphocytes % (Manual) Monocytes % (Manual) Nucleated RBC % Seg Neutrophils # Seg Neutrophils # Man Monocytes # (Manual) PT INR Activated Clotting Time POC ABG pH 7.475 H POC ABG pCO2 25.4 L POC ABG pO2 62 L Sodium Potassium Chloride Carbon Dioxide 19 L BUN 22 H Creatinine 0.6 L Glucose 148 H POC Glucose 143 H Calcium 8.3 L Magnesium AST ALT Alkaline Phosphatase Total Creatine Kinase CK-MB (CK-2) CK-MB (CK-2) Rel Index Troponin T C-Reactive Protein Total Protein Albumin Triglycerides Ur Specific [place] 03/31/17 03/31/17 03/31/17 11:40 17:47 23:38 WBC Hgb MCV MCH Plt Count Lymph % (Auto) Lymph # Seg Neutrophils % Lymphocytes % (Manual) Monocytes % (Manual) Nucleated RBC % Seg Neutrophils # Seg Neutrophils # Man Monocytes # (Manual) PT INR Activated Clotting Time POC ABG pH POC ABG pCO2 POC ABG pO2 Sodium Potassium Chloride Carbon Dioxide BUN Creatinine Glucose POC Glucose 127 H 137 H 148 H Calcium Magnesium AST ALT Alkaline Phosphatase Total Creatine Kinase CK-MB (CK-2) CK-MB (CK-2) Rel Index Troponin T C-Reactive Protein Total Protein Albumin Triglycerides Ur Specific [place] 04/01/17 04/01/17 04/01/17 04:29 05:01 11:54 WBC Hgb MCV MCH Plt Count Lymph % (Auto) Lymph # Seg Neutrophils % Lymphocytes % (Manual) Monocytes % (Manual) Nucleated RBC % Seg Neutrophils # Seg Neutrophils # Man Monocytes # (Manual) PT INR Activated Clotting Time POC ABG pH 7.513 H POC ABG pCO2 22.1 L POC ABG pO2 64 L Sodium Potassium Chloride Carbon Dioxide BUN Creatinine Glucose POC Glucose 121 H Calcium Magnesium AST ALT Alkaline Phosphatase Total Creatine Kinase CK-MB (CK-2) CK-MB (CK-2) Rel Index Troponin T C-Reactive Protein Total Protein Albumin Triglycerides 151 H Ur Specific [place] 04/01/17 04/02/17 04/02/17 18:17 00:11 04:52 WBC Hgb MCV MCH Plt Count Lymph % (Auto) Lymph # Seg Neutrophils % Lymphocytes % (Manual) Monocytes % (Manual) Nucleated RBC % Seg Neutrophils # Seg Neutrophils # Man Monocytes # (Manual) PT INR Activated Clotting Time POC ABG pH 7.524 H POC ABG pCO2 25.5 L POC ABG pO2 66 L Sodium Potassium Chloride Carbon Dioxide BUN Creatinine Glucose POC Glucose 117 H 122 H Calcium Magnesium AST ALT Alkaline Phosphatase Total Creatine Kinase CK-MB (CK-2) CK-MB (CK-2) Rel Index Troponin T C-Reactive Protein Total Protein Albumin Triglycerides Ur Specific [place] 04/02/17 04/02/17 04/02/17 05:18 10:41 12:19 WBC Hgb MCV MCH Plt Count Lymph % (Auto) Lymph # Seg Neutrophils % Lymphocytes % (Manual) Monocytes % (Manual) Nucleated RBC % Seg Neutrophils # Seg Neutrophils # Man Monocytes # (Manual) PT INR Activated Clotting Time POC ABG pH 7.534 H POC ABG pCO2 27.4 L POC ABG pO2 Sodium Potassium Chloride Carbon Dioxide BUN Creatinine Glucose POC Glucose 132 H 129 H Calcium Magnesium AST ALT Alkaline Phosphatase Total Creatine Kinase CK-MB (CK-2) CK-MB (CK-2) Rel Index Troponin T C-Reactive Protein Total Protein Albumin Triglycerides Ur Specific [place] 04/02/17 04/03/17 04/03/17 18:05 00:08 05:09 WBC Hgb MCV MCH Plt Count Lymph % (Auto) Lymph # Seg Neutrophils % Lymphocytes % (Manual) Monocytes % (Manual) Nucleated RBC % Seg Neutrophils # Seg Neutrophils # Man Monocytes # (Manual) PT INR Activated Clotting Time POC ABG pH 7.455 H POC ABG pCO2 33.2 L POC ABG pO2 120 H Sodium Potassium Chloride Carbon Dioxide BUN Creatinine Glucose POC Glucose 136 H 128 H Calcium Magnesium AST ALT Alkaline Phosphatase Total Creatine Kinase CK-MB (CK-2) CK-MB (CK-2) Rel Index Troponin T C-Reactive Protein Total Protein Albumin Triglycerides Ur Specific [place] 04/03/17 04/03/17 04/03/17 06:32 11:54 12:16 WBC 11.9 H Hgb MCV MCH Plt Count 125 L Lymph % (Auto) 4.8 L Lymph # 0.6 L Seg Neutrophils % 86.7 H Lymphocytes % (Manual) Monocytes % (Manual) Nucleated RBC % Seg Neutrophils # 10.3 H Seg Neutrophils # Man Monocytes # (Manual) PT INR Activated Clotting Time POC ABG pH POC ABG pCO2 POC ABG pO2 Sodium Potassium Chloride Carbon Dioxide BUN Creatinine Glucose POC Glucose 138 H 143 H Calcium Magnesium AST ALT Alkaline Phosphatase Total Creatine Kinase CK-MB (CK-2) CK-MB (CK-2) Rel Index Troponin T C-Reactive Protein Total Protein Albumin Triglycerides Ur Specific [place] 04/03/17 04/03/17 04/04/17 17:33 23:59 04:34 WBC Hgb MCV MCH Plt Count Lymph % (Auto) Lymph # Seg Neutrophils % Lymphocytes % (Manual) Monocytes % (Manual) Nucleated RBC % Seg Neutrophils # Seg Neutrophils # Man Monocytes # (Manual) PT INR Activated Clotting Time POC ABG pH 7.457 H POC ABG pCO2 29.8 L POC ABG pO2 76 L Sodium Potassium Chloride Carbon Dioxide BUN Creatinine Glucose POC Glucose 130 H 155 H Calcium Magnesium AST ALT Alkaline Phosphatase Total Creatine Kinase CK-MB (CK-2) CK-MB (CK-2) Rel Index Troponin T C-Reactive Protein Total Protein Albumin Triglycerides Ur Specific [place] 04/04/17 04/04/17 04/04/17 05:27 12:22 18:18 WBC Hgb MCV MCH Plt Count Lymph % (Auto) Lymph # Seg Neutrophils % Lymphocytes % (Manual) Monocytes % (Manual) Nucleated RBC % Seg Neutrophils # Seg Neutrophils # Man Monocytes # (Manual) PT INR Activated Clotting Time POC ABG pH POC ABG pCO2 POC ABG pO2 Sodium Potassium Chloride Carbon Dioxide BUN Creatinine Glucose POC Glucose 164 H 146 H 130 H Calcium Magnesium AST ALT Alkaline Phosphatase Total Creatine Kinase CK-MB (CK-2) CK-MB (CK-2) Rel Index Troponin T C-Reactive Protein Total Protein Albumin Triglycerides Ur Specific [place] 04/05/17 04/05/17 04/05/17 04:43 05:28 11:36 WBC Hgb MCV MCH Plt Count Lymph % (Auto) Lymph # Seg Neutrophils % Lymphocytes % (Manual) Monocytes % (Manual) Nucleated RBC % Seg Neutrophils # Seg Neutrophils # Man Monocytes # (Manual) PT INR Activated Clotting Time POC ABG pH 7.479 H POC ABG pCO2 33.5 L POC ABG pO2 76 L Sodium Potassium Chloride Carbon Dioxide BUN Creatinine Glucose POC Glucose 145 H 136 H Calcium Magnesium AST ALT Alkaline Phosphatase Total Creatine Kinase CK-MB (CK-2) CK-MB (CK-2) Rel Index Troponin T C-Reactive Protein Total Protein Albumin Triglycerides Ur Specific [place] 04/05/17 04/06/17 04/06/17 17:58 00:16 05:26 WBC Hgb MCV MCH Plt Count Lymph % (Auto) Lymph # Seg Neutrophils % Lymphocytes % (Manual) Monocytes % (Manual) Nucleated RBC % Seg Neutrophils # Seg Neutrophils # Man Monocytes # (Manual) PT INR Activated Clotting Time POC ABG pH POC ABG pCO2 POC ABG pO2 Sodium Potassium Chloride Carbon Dioxide BUN Creatinine Glucose POC Glucose 130 H 159 H 146 H Calcium Magnesium AST ALT Alkaline Phosphatase Total Creatine Kinase CK-MB (CK-2) CK-MB (CK-2) Rel Index Troponin T C-Reactive Protein Total Protein Albumin Triglycerides Ur Specific [place] 04/06/17 04/06/17 04/07/17 13:11 16:54 11:45 WBC Hgb MCV MCH Plt Count Lymph % (Auto) Lymph # Seg Neutrophils % Lymphocytes % (Manual) Monocytes % (Manual) Nucleated RBC % Seg Neutrophils # Seg Neutrophils # Man Monocytes # (Manual) PT INR Activated Clotting Time POC ABG pH 7.517 H POC ABG pCO2 32.1 L POC ABG pO2 Sodium Potassium Chloride Carbon Dioxide BUN Creatinine Glucose POC Glucose 132 H 123 H Calcium Magnesium AST ALT Alkaline Phosphatase Total Creatine Kinase CK-MB (CK-2) CK-MB (CK-2) Rel Index Troponin T C-Reactive Protein Total Protein Albumin Triglycerides Ur Specific [place] 04/07/17 04/07/17 04/07/17 12:51 17:40 23:55 WBC Hgb MCV MCH Plt Count Lymph % (Auto) Lymph # Seg Neutrophils % Lymphocytes % (Manual) Monocytes % (Manual) Nucleated RBC % Seg Neutrophils # Seg Neutrophils # Man Monocytes # (Manual) PT INR Activated Clotting Time POC ABG pH POC ABG pCO2 POC ABG pO2 Sodium Potassium Chloride Carbon Dioxide BUN Creatinine Glucose POC Glucose 138 H 154 H 143 H Calcium Magnesium AST ALT Alkaline Phosphatase Total Creatine Kinase CK-MB (CK-2) CK-MB (CK-2) Rel Index Troponin T C-Reactive Protein Total Protein Albumin Triglycerides Ur Specific [place] 04/08/17 04/08/17 04/08/17 05:27 11:14 17:44 WBC Hgb MCV MCH Plt Count Lymph % (Auto) Lymph # Seg Neutrophils % Lymphocytes % (Manual) Monocytes % (Manual) Nucleated RBC % Seg Neutrophils # Seg Neutrophils # Man Monocytes # (Manual) PT INR Activated Clotting Time POC ABG pH POC ABG pCO2 POC ABG pO2 Sodium Potassium Chloride Carbon Dioxide BUN Creatinine Glucose POC Glucose 142 H 153 H 129 H Calcium Magnesium AST ALT Alkaline Phosphatase Total Creatine Kinase CK-MB (CK-2) CK-MB (CK-2) Rel Index Troponin T C-Reactive Protein Total Protein Albumin Triglycerides Ur Specific [place] 04/09/17 04/09/17 04/09/17 08:20 11:21 17:37 WBC Hgb MCV MCH Plt Count Lymph % (Auto) Lymph # Seg Neutrophils % Lymphocytes % (Manual) Monocytes % (Manual) Nucleated RBC % Seg Neutrophils # Seg Neutrophils # Man Monocytes # (Manual) PT INR Activated Clotting Time POC ABG pH POC ABG pCO2 POC ABG pO2 Sodium 147 H Potassium Chloride 108.8 H Carbon Dioxide BUN 39 H Creatinine 0.5 L Glucose 138 H POC Glucose 152 H 109 H Calcium Magnesium AST ALT Alkaline Phosphatase Total Creatine Kinase CK-MB (CK-2) CK-MB (CK-2) Rel Index Troponin T C-Reactive Protein Total Protein Albumin Triglycerides Ur Specific [place] 04/10/17 04/10/17 04/10/17 00:13 04:16 04:16 WBC Hgb 11.5 L MCV 96 H MCH Plt Count 103 L Lymph % (Auto) 11.1 L Lymph # Seg Neutrophils % 81.5 H Lymphocytes % (Manual) Monocytes % (Manual) Nucleated RBC % Seg Neutrophils # 8.8 H Seg Neutrophils # Man Monocytes # (Manual) PT INR Activated Clotting Time POC ABG pH POC ABG pCO2 POC ABG pO2 Sodium 148 H Potassium Chloride 109.0 H Carbon Dioxide BUN 36 H Creatinine 0.5 L Glucose 131 H POC Glucose 127 H Calcium 8.1 L Magnesium 2.40 H AST 206 H ALT 228 H Alkaline Phosphatase 178 H Total Creatine Kinase CK-MB (CK-2) CK-MB (CK-2) Rel Index Troponin T C-Reactive Protein Total Protein Albumin 2.8 L Triglycerides Ur Specific [place] 04/10/17 06:01 WBC Hgb MCV MCH Plt Count Lymph % (Auto) Lymph # Seg Neutrophils % Lymphocytes % (Manual) Monocytes % (Manual) Nucleated RBC % Seg Neutrophils # Seg Neutrophils # Man Monocytes # (Manual) PT INR Activated Clotting Time POC ABG pH POC ABG pCO2 POC ABG pO2 Sodium Potassium Chloride Carbon Dioxide BUN Creatinine Glucose POC Glucose 108 H Calcium Magnesium AST ALT Alkaline Phosphatase Total Creatine Kinase CK-MB (CK-2) CK-MB (CK-2) Rel Index Troponin T C-Reactive Protein Total Protein Albumin Triglycerides Ur Specific [place]
--- NOTE | 2017-04-10 14:49 | Consultation ---
History of Present Illness Consult date: 04/10/17 Reason for consult: other (Trach/PEG consult) Requesting physician: JASVIR COHEN Chief complaint: Anoxic Brain Injury - History of present illness History of present illness: Pt is a 46yo M with anoxic brain injury secondary to cardiac arrest out of hospital. Pt has been evaluated by Neurology and felt to have a very poor prognosis. Famly would like to pursue [facility] care. Therefore, Gen Surg consulted for trach/PEG placement. Pt unable to participate in history. History obtained from family, staff, and chart. Past History Past Medical History: No medical history (Reviewed), migraines Past Surgical History: No surgical history (reviewed) Social history: single, smoking (some current smoking per brother), alcohol abuse (some alcohol though quantity not known by brother though he states the patient had half pint of Olvin Cuadra on alexander), other (does [employer]), brother works at same company. Brother says no illicit drugs.). denies: prescription drug abuse, IV drug use Family history: no significant family history, CAD (same brother as above had bypass surgery. Liver disease in at least one other brother.), diabetes (mother ) Medications and Allergies Allergies Allergy/AdvReac Type Severity Reaction Status Date / Time No Known Allergies Allergy Unverified 03/29/17 11:35 Home Medications Medication Instructions Recorded Confirmed Last Taken Type No Known Home Medications [No 03/30/17 03/30/17 Unknown History Reported Home Medications] Active Meds: Active Medications Acetaminophen (Tylenol) 1,000 mg PO Q6H PRN PRN Reason: Fever >101 Last Admin: 04/07/17 16:37 Dose: 1,000 mg Albuterol (Proventil) 2.5 mg IH Q3HRT PRN PRN Reason: Shortness Of Breath Amiodarone HCl (Cordarone) 200 mg PO BID [facility] Last Admin: 04/10/17 09:23 Dose: 200 mg Lipase/Protease/Amylase (Pancreaze Dr 10,500 Unit) 1 each FEEDTUBE PRN PRN PRN Reason: For Clogged Feeding Tube Aspirin (Aspirin) 325 mg PO QDAY [facility] Last Admin: 04/10/17 09:23 Dose: 325 mg Atorvastatin Calcium (Lipitor) 20 mg PO QHS [facility] Last Admin: 01/14/18 22:25 Dose: 20 mg Clopidogrel Bisulfate (Plavix) 75 mg PO QDAY [facility] Last Admin: 04/10/17 09:23 Dose: 75 mg Dextrose (D50w (25gm) Syringe) 50 ml IV PRN PRN PRN Reason: Hypoglycemia Heparin Sodium (Porcine) (Heparin) 5,000 unit SUB-Q Q12HR [facility] Last Admin: 04/10/17 09:23 Dose: 5,000 unit Hydrophilic Ointment (Vaseline Lip Therapy) 1 applic TP Q2HR PRN PRN Reason: Dry Lips Last Admin: 03/31/17 22:50 Dose: 1 applic Fentanyl Citrate (Fentanyl Drip Premix) 2,000 mcg in 100 mls @ 4.309 mls/hr IV TITR CHETAN; 1 MCG/KG/HR PRN Reason: Protocol Propofol (Diprivan 10 Mg/Ml) 1,000 mg in 100 mls @ 2.585 mls/hr IV TITR CHETAN; 5 MCG/KG/MIN PRN Reason: Protocol Last Titration: 04/10/17 09:20 Dose: 0 mcg/kg/min, 0 mls/hr Linezolid (Zyvox) 600 mg PO BID [facility] Stop: 04/10/17 23:59 Last Admin: 04/10/17 09:23 Dose: 600 mg Lisinopril (Zestril) 2.5 mg PO QDAY [facility] Metoprolol Tartrate (Lopressor) 2.5 mg IV Q4HR PRN PRN Reason: HR>130 Last Admin: 04/09/17 19:41 Dose: 2.5 mg Metoprolol Tartrate (Lopressor) 25 mg PO Q12H [facility] Multi-Ingred Cream/Lotion/Oil/Oint (Artificial Tears Ophth Oint) 1 applic OU Q4HR PRN PRN Reason: Dry Eye(s) Last Admin: 03/31/17 22:51 Dose: 1 applic Nitroglycerin (Nitro-Bid 2%) 1 inch TP QIDNTG [facility] PRN Reason: Protocol Last Admin: 04/10/17 09:25 Dose: 1 inch Pantoprazole (Protonix) 40 mg FEEDTUBE DAILY [facility] Last Admin: 04/10/17 09:23 Dose: 40 mg Simple Syrup (Simple Syrup) 15 ml FEEDTUBE PRN PRN PRN Reason: Hypoglycemia Simple Syrup (Simple Syrup) 30 ml FEEDTUBE PRN PRN PRN Reason: Hypoglycemia Sodium Bicarbonate (Sodium Bicarbonate) 325 mg FEEDTUBE PRN PRN PRN Reason: For Clogged Feeding Tube Exam Vital Signs Pulse Resp Pulse Ox 113 H 28 H 93 03/29/17 11:33 03/29/17 11:33 03/29/17 11:33 Narrative exam: unresponsive - General physical appearance Positive: well developed, severe distress - ENT Positive: other (ETT in place) - Neck Positive: no masses, trachea midline (trachea easily palpable. No prior surgeries. no signs of infection. ) - Respiratory Positive: normal expansion, clear to auscultation, other (minimal vent settings) - Cardiovascular Rhythm: irregularly irregular - Extremities Extremities: No edema, normal temperature, normal color - Abdomen Abdomen: Present: soft, bowel sounds normal. Absent: distended, rebound, guarding, surgical scars Hernia: none - Neurologic Neurologic: other (unresponsive) Results - Labs 04/10/17 04:16 04/10/17 04:16 Abnormal lab results 04/09/17 04/10/17 04/10/17 Range/Units 17:37 00:13 04:16 Hgb 11.5 L (11.8-15.2) gm/dl MCV 96 H (84-94) fl Plt Count 103 L (140-440) K/mm3 Lymph % (Auto) 11.1 L (13.4-35.0) % Seg Neutrophils % 81.5 H (40.0-70.0) % Seg Neutrophils # 8.8 H (1.8-7.7) K/mm3 Sodium (137-145) mmol/L Chloride (98-107) mmol/L BUN (9-20) mg/dL Creatinine (0.8-1.5) mg/dL Glucose (75-100) mg/dL POC Glucose 109 H 127 H (70-105) Calcium (8.4-10.2) mg/dL Magnesium (1.7-2.3) mg/dL AST (5-40) units/L ALT (7-56) units/L Alkaline Phosphatase (35-129) units/L Albumin (3.9-5) g/dL 04/10/17 04/10/17 04/10/17 Range/Units 04:16 06:01 11:57 Hgb (11.8-15.2) gm/dl MCV (84-94) fl Plt Count (140-440) K/mm3 Lymph % (Auto) (13.4-35.0) % Seg Neutrophils % (40.0-70.0) % Seg Neutrophils # (1.8-7.7) K/mm3 Sodium 148 H (137-145) mmol/L Chloride 109.0 H (98-107) mmol/L BUN 36 H (9-20) mg/dL Creatinine 0.5 L (0.8-1.5) mg/dL Glucose 131 H (75-100) mg/dL POC Glucose 108 H 154 H (70-105) Calcium 8.1 L (8.4-10.2) mg/dL Magnesium 2.40 H (1.7-2.3) mg/dL AST 206 H (5-40) units/L ALT 228 H (7-56) units/L Alkaline Phosphatase 178 H (35-129) units/L Albumin 2.8 L (3.9-5) g/dL Diabetes panel 04/10/17 Range/Units 04:16 Sodium 148 H (137-145) mmol/L Potassium 3.9 (3.6-5.0) mmol/L Chloride 109.0 H (98-107) mmol/L Carbon Dioxide 23 (22-30) mmol/L BUN 36 H (9-20) mg/dL Creatinine 0.5 L (0.8-1.5) mg/dL Glucose 131 H (75-100) mg/dL Calcium 8.1 L (8.4-10.2) mg/dL AST 206 H (5-40) units/L ALT 228 H (7-56) units/L Alkaline Phosphatase 178 H (35-129) units/L Total Protein 6.7 (6.3-8.2) g/dL Albumin 2.8 L (3.9-5) g/dL Calcium panel 04/10/17 Range/Units 04:16 Calcium 8.1 L (8.4-10.2) mg/dL Phosphorus 2.90 (2.5-4.5) mg/dL Albumin 2.8 L (3.9-5) g/dL Pituitary panel 04/10/17 Range/Units 04:16 Sodium 148 H (137-145) mmol/L Potassium 3.9 (3.6-5.0) mmol/L Chloride 109.0 H (98-107) mmol/L Carbon Dioxide 23 (22-30) mmol/L BUN 36 H (9-20) mg/dL Creatinine 0.5 L (0.8-1.5) mg/dL Glucose 131 H (75-100) mg/dL Calcium 8.1 L (8.4-10.2) mg/dL Adrenal panel 04/10/17 Range/Units 04:16 Sodium 148 H (137-145) mmol/L Potassium 3.9 (3.6-5.0) mmol/L Chloride 109.0 H (98-107) mmol/L Carbon Dioxide 23 (22-30) mmol/L BUN 36 H (9-20) mg/dL Creatinine 0.5 L (0.8-1.5) mg/dL Glucose 131 H (75-100) mg/dL Calcium 8.1 L (8.4-10.2) mg/dL Total Bilirubin 0.60 (0.1-1.2) mg/dL AST 206 H (5-40) units/L ALT 228 H (7-56) units/L Alkaline Phosphatase 178 H (35-129) units/L Total Protein 6.7 (6.3-8.2) g/dL Albumin 2.8 L (3.9-5) g/dL - Imaging Chest x-ray: image reviewed Assessment and Plan - Patient Problems (1) Anoxic brain injury Current Visit: Yes Status: Acute Plan to address problem: This unfortunately patient has suffered an apparent anoxic brain injury and has a very poor prognosis. as a result, he is unable to protect his airway and the family would like to pursue aggressive care. Therefore, he is a candidate for a trach/PEG based on anatomy. Procedure, risks, benefits, and alternatives have been discussed. We discussed in detail the risks of infection, bleeding, pain, injury to surrounding structures, and possible need for further surgeries/ procedure. We also discussed the risk for tracheo-innominate fistula. They understand that these procedures will not contribute to the healing of his injuries. All questions were answered. Consent was obtained. Will schedule procedure with OR/GI staff. I have discussed the issue of holding the plavix with Dr. Cohen. He will ask the Cardiology team if this will be possible. If not, will proceed with plavix, but the risk of bleeding will be higher. time=60min
--- NOTE | 2017-04-10 16:21 | Progress Note ---
Assessment and Plan Assessment and plan: 46 YO Male with No PMH presents to ED for evaluation. Pt is unresponsive and unable to provide history. Pt history taken from ED staff and EMS. Pt was at work today and suddenly passed out around 1050 hrs-which was witnessed by patients coworkers. EMS notified, and upon arrival the patient was found to have V Fib. Pt treated IAW ACLS protocol. The patient was given 3 defibrillations, 2 rounds of epinephrine, Narcan, and a half amp of sodium bicarbonate. Pt found to be in respiratory distress and was intubated and placed on vent support. 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 Acute Respiratory failure requiring MV >96 hours Pt intubated, continue ventilator Anterior STEMI sp cardiac arrest case dw cardiology Emergency cath protocol called upon arrival, we found 100% occlusion of the LAD in its prox-mid segment. Successful primari PCI-angioplasty and 3.0-3.5mm BM stents deployed. LAD flow restored-excellent result. Relative hypotension due to meds reduce lisinopril and metoprolol dose Aspiration PNA due to MRSA/Gram positive Sepsis case dw ID contact isolation rx with zyvox day 7 of 7 cardiogenic Shock -Likely cardiogenic and possibly also septic shock Currently off pressors, has been weaned Sepsis/Right lower lobe aspiration pneumonia, most likely due to gram-positive bacteria continue abx for one more day Hypokalemia repleted, Now resolved Hypernatremia/dehydration/free water deficit give free water via NGT anoxic brain injury/anoxic encephalopathy/Persistent Vegetative State Most likely anoxic brain injury, patient has been off sedation and still obtunded and nonresponsive. He likely had aprolonged period of time without perfusion to his brain. We will continue to monitor his mental status, -His prognosis is grim with very little chance of recovery, this has been conveyed to the family. We would recommend hospice and withdrawal of life supports versus trach and SNIF placement. This was dw family, Critical care physician and neurologist also conveyed the same information to the family -at this time the family wants trache and PEG and for him to be dc home in care of his family members, medicaid and medicare/disability application pending -family has discussed the plan for trache/peg with General Surgeon unable to go to [facility] as has no insurance -medicare disability application in process of being filled out by family -family is hoping to take him home on vent/peg tube and have his sister care for him -case dw Neurologist, Dr Bradley and Dr Perkins The high probability of a clinically significant, sudden or life threatening deterioration of the [Pulmonary, cardiac, renal] system(s) required my full and direct attention, intervention and personal management. The aggregate critical care time was [65] minutes. This time is in addition to time spent performing reported procedures but includes the following: [x] Data Review and interpretation [x] Patient assessment and monitoring of vital signs [x] Documentation [x] Medication orders and management History Interval history: Patient is nonresponsive, lacks most reflexes, had fever, no vomiting, no agitation Hospitalist Physical - Physical exam Narrative exam: General.: Comatose breathes over the vent HEENT: Moist mucous membranes, no LAD, Neck: supple Cardiac: S1-S2 heard Lungs: clear to auscultation bilaterally Abdomen: soft , nontender, nondistended, bowel sounds positive Extremities: no edema clubbing or cyanosis Skin: no rash or lesions Neurologic: Patient is in deep coma, lacks most reflexes, at this time, only has gag reflexs, corneal reflex is absent and decerebrate posturing, pupils are fixed and non reactive, lacks all other reflexes, opens eyes spontaneously - Constitutional Vitals: Temp Pulse Resp BP Pulse Ox 99.7 F H 102 H 23 94/62 96 04/10/17 15:26 04/10/17 15:50 04/10/17 15:00 04/10/17 15:46 04/10/17 15:50 General appearance: Present: severe distress Results - Labs CBC & Chem 7: 04/10/17 04:16 04/10/17 04:16 Labs: Laboratory Last Values WBC 10.8 K/mm3 (4.5-11.0) 04/10/17 04:16 RBC 3.70 M/mm3 (3.65-5.03) 04/10/17 04:16 Hgb 11.5 gm/dl (11.8-15.2) L 04/10/17 04:16 Hct 35.5 % (35.5-45.6) 04/10/17 04:16 MCV 96 fl (84-94) H 04/10/17 04:16 MCH 31 pg (28-32) 04/10/17 04:16 MCHC 32 % (32-34) 04/10/17 04:16 RDW 14.4 % (13.2-15.2) 04/10/17 04:16 Plt Count 103 K/mm3 (140-440) L 04/10/17 04:16 Lymph % (Auto) 11.1 % (13.4-35.0) L 04/10/17 04:16 [place] % (Auto) 5.1 % (0.0-7.3) 04/10/17 04:16 Eos % (Auto) 2.0 % (0.0-4.3) 04/10/17 04:16 Baso % (Auto) 0.3 % (0.0-1.8) 04/10/17 04:16 Lymph # 1.2 K/mm3 (1.2-5.4) 04/10/17 04:16 [place] # 0.5 K/mm3 (0.0-0.8) 04/10/17 04:16 Eos # 0.2 K/mm3 (0.0-0.4) 04/10/17 04:16 Baso # 0.0 K/mm3 (0.0-0.1) 04/10/17 04:16 Add Manual Diff Complete 03/30/17 03:50 Total Counted 100 03/30/17 03:50 Seg Neutrophils % 81.5 % (40.0-70.0) H 04/10/17 04:16 Seg Neuts % (Manual) 65.0 % (40.0-70.0) 03/30/17 03:50 Band Neutrophils % 17.0 % 03/30/17 03:50 Lymphocytes % (Manual) 7.0 % (13.4-35.0) L 03/30/17 03:50 Reactive Lymphs % (Man) 0 % 03/30/17 03:50 Monocytes % (Manual) 7.0 % (0.0-7.3) 03/30/17 03:50 Eosinophils % (Manual) 0 % (0.0-4.3) 03/30/17 03:50 Basophils % (Manual) 0 % (0.0-1.8) 03/30/17 03:50 Metamyelocytes % 4.0 % 03/30/17 03:50 Myelocytes % 0 % 03/30/17 03:50 Promyelocytes % 0 % 03/30/17 03:50 Blast Cells % 0 % 03/30/17 03:50 Nucleated RBC % Not Reportable 03/30/17 03:50 Seg Neutrophils # 8.8 K/mm3 (1.8-7.7) H 04/10/17 04:16 Seg Neutrophils # Man 12.7 K/mm3 (1.8-7.7) H 03/30/17 03:50 Band Neutrophils # 3.3 K/mm3 03/30/17 03:50 Lymphocytes # (Manual) 1.4 K/mm3 (1.2-5.4) 03/30/17 03:50 Abs React Lymphs (Man) 0.0 K/mm3 03/30/17 03:50 Monocytes # (Manual) 1.4 K/mm3 (0.0-0.8) H 03/30/17 03:50 Eosinophils # (Manual) 0.0 K/mm3 (0.0-0.4) 03/30/17 03:50 Basophils # (Manual) 0.0 K/mm3 (0.0-0.1) 03/30/17 03:50 Metamyelocytes # 0.8 K/mm3 03/30/17 03:50 Myelocytes # 0.0 K/mm3 03/30/17 03:50 Promyelocytes # 0.0 K/mm3 03/30/17 03:50 Blast Cells # 0.0 K/mm3 03/30/17 03:50 WBC Morphology Not Reportable 03/30/17 03:50 Hypersegmented Neuts Not Reportable 03/30/17 03:50 Hyposegmented Neuts Not Reportable 03/30/17 03:50 Hypogranular Neuts Not Reportable 03/30/17 03:50 Smudge Cells Not Reportable 03/30/17 03:50 Toxic Granulation Not Reportable 03/30/17 03:50 Toxic Vacuolation Not Reportable 03/30/17 03:50 Dohle Bodies Not Reportable 03/30/17 03:50 Pelger-Huet Anomaly Not Reportable 03/30/17 03:50 Sherry Rods Not Reportable 03/30/17 03:50 Platelet Estimate Appears normal 03/30/17 03:50 Clumped Platelets Not Reportable 03/30/17 03:50 Plt Clumps, EDTA Not Reportable 03/30/17 03:50 Large Platelets Not Reportable 03/30/17 03:50 Giant Platelets Not Reportable 03/30/17 03:50 Platelet Satelliting Not Reportable 03/30/17 03:50 Plt Morphology Comment Not Reportable 03/30/17 03:50 RBC Morphology Not Reportable 03/30/17 03:50 Dimorphic RBCs Not Reportable 03/30/17 03:50 Polychromasia Not Reportable 03/30/17 03:50 Hypochromasia Not Reportable 03/30/17 03:50 Poikilocytosis Not Reportable 03/30/17 03:50 Anisocytosis Few 03/30/17 03:50 Microcytosis Not Reportable 03/30/17 03:50 Macrocytosis Not Reportable 03/30/17 03:50 Spherocytes Not Reportable 03/30/17 03:50 Pappenheimer Bodies Not Reportable 03/30/17 03:50 Sickle Cells Not Reportable 03/30/17 03:50 Target Cells Not Reportable 03/30/17 03:50 Tear Drop Cells Not Reportable 03/30/17 03:50 Ovalocytes Not Reportable 03/30/17 03:50 Helmet Cells Not Reportable 03/30/17 03:50 [place] Bodies Not Reportable 03/30/17 03:50 [place] Rings Not Reportable 03/30/17 03:50 [employer] Cells Not Reportable 03/30/17 03:50 Bite Cells Not Reportable 03/30/17 03:50 Crenated Cell Not Reportable 03/30/17 03:50 Elliptocytes Not Reportable 03/30/17 03:50 Acanthocytes (Spur) Not Reportable 03/30/17 03:50 Rouleaux Not Reportable 03/30/17 03:50 Hemoglobin C Crystals Not Reportable 03/30/17 03:50 Schistocytes Not Reportable 03/30/17 03:50 Malaria parasites Not Reportable 03/30/17 03:50 Jermaine Bodies Not Reportable 03/30/17 03:50 Hem Pathologist Commnt No 03/30/17 03:50 PT 14.9 Sec. (12.2-14.9) 04/10/17 04:16 INR 1.11 (0.87-1.13) 04/10/17 04:16 APTT 27.8 Sec. (24.2-36.6) 04/10/17 04:16 Activated Clotting Time 92 (74-137) 03/29/17 17:47 POC ABG pH 7.517 (7.35-7.45) H 04/07/17 11:45 POC ABG pCO2 32.1 (35-45) L 04/07/17 11:45 POC ABG pO2 93 (80-105) 04/07/17 11:45 POC ABG HCO3 26.0 04/07/17 11:45 POC ABG Total CO2 27 04/07/17 11:45 POC ABG O2 Sat 98 04/07/17 11:45 POC ABG Base Excess 3 04/07/17 11:45 FiO2 35 % 04/07/17 11:45 Sodium 148 mmol/L (137-145) H 04/10/17 04:16 Potassium 3.9 mmol/L (3.6-5.0) 04/10/17 04:16 Chloride 109.0 mmol/L (98-107) H 04/10/17 04:16 Carbon Dioxide 23 mmol/L (22-30) 04/10/17 04:16 Anion Gap 20 mmol/L 04/10/17 04:16 BUN 36 mg/dL (9-20) H 04/10/17 04:16 Creatinine 0.5 mg/dL (0.8-1.5) L 04/10/17 04:16 Estimated GFR > 60 ml/min 04/10/17 04:16 BUN/Creatinine Ratio 72 % 04/10/17 04:16 Glucose 131 mg/dL (75-100) H 04/10/17 04:16 POC Glucose 154 (70-105) H 04/10/17 11:57 Calcium 8.1 mg/dL (8.4-10.2) L 04/10/17 04:16 Phosphorus 2.90 mg/dL (2.5-4.5) 04/10/17 04:16 Magnesium 2.40 mg/dL (1.7-2.3) H 04/10/17 04:16 Total Bilirubin 0.60 mg/dL (0.1-1.2) 04/10/17 04:16 AST 206 units/L (5-40) H 04/10/17 04:16 ALT 228 units/L (7-56) H 04/10/17 04:16 Alkaline Phosphatase 178 units/L (35-129) H 04/10/17 04:16 Total Creatine Kinase 7963 units/L (55-170) H 03/30/17 03:50 CK-MB (CK-2) > 300.0 ng/mL (0.0-4.0) H 03/30/17 03:50 CK-MB (CK-2) Rel Index 3.7 (0-4) 03/30/17 03:50 Troponin T 6.850 ng/mL (0.00-0.029) H* 03/30/17 03:50 C-Reactive Protein 21.80 mg/dL (0.00-1.30) H 03/30/17 16:04 Total Protein 6.7 g/dL (6.3-8.2) 04/10/17 04:16 Albumin 2.8 g/dL (3.9-5) L 04/10/17 04:16 Albumin/Globulin Ratio 0.7 % 04/10/17 04:16 Triglycerides 151 mg/dL (2-149) H 04/01/17 04:29 Cholesterol 164 mg/dL (50-199) 03/29/17 19:52 LDL Cholesterol Direct 81 mg/dL (50-130) 03/29/17 19:52 HDL Cholesterol 44 mg/dL (40-59) 03/29/17 19:52 Cholesterol/HDL Ratio 3.72 % 03/29/17 19:52 Urine Color Yellow (Yellow) 03/30/17 09:45 Urine Turbidity Turbid (Clear) 03/30/17 09:45 Urine pH 5.0 (5.0-7.0) 03/30/17 09:45 Ur Specific [place] 1.031 (1.003-1.030) H 03/30/17 09:45 Urine Protein 30 mg/dl mg/dL (Negative) 03/30/17 09:45 Urine Glucose (UA) Neg mg/dL (Negative) 03/30/17 09:45 Urine Ketones 20 mg/dL (Negative) 03/30/17 09:45 Urine Blood Mod (Negative) 03/30/17 09:45 Urine Nitrite Neg (Negative) 03/30/17 09:45 Urine Bilirubin Neg (Negative) 03/30/17 09:45 Urine Urobilinogen < 2.0 mg/dL (<2.0) 03/30/17 09:45 Ur Leukocyte Esterase Tr (Negative) 03/30/17 09:45 Urine WBC (Auto) 1.0 /HPF (0.0-6.0) 03/30/17 09:45 Urine RBC (Auto) 14.0 /HPF (0.0-6.0) 03/30/17 09:45 Amorphous Crystals 1+ 03/30/17 09:45 Urine Opiates Screen Presumptive negative 03/30/17 09:45 Urine Methadone Screen Presumptive negative 03/30/17 09:45 Ur Barbiturates Screen Presumptive negative 03/30/17 09:45 Ur Phencyclidine Scrn Presumptive negative 03/30/17 09:45 Ur Amphetamines Screen Presumptive positive 03/30/17 09:45 U Benzodiazepines Scrn Presumptive positive 03/30/17 09:45 Urine Cocaine Screen Presumptive negative 03/30/17 09:45 U Marijuana (THC) Screen Presumptive negative 03/30/17 09:45 Drugs of Abuse Note Disclamer 03/30/17 09:45 Blood Type O POSITIVE 03/29/17 11:35 Antibody Screen Negative 03/29/17 11:35
[2017-04-11] MEDS: NITRO-BID 2% TP SCH ×2 (06:05→10:12)
--- NOTE | 2017-04-11 09:04 | Progress Note ---
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 1. Plavix now on hold 2. Trach and Peg scheduled for Monday 3. Continue vent support and management 4. Continue all other cardiac meds 5. Has a new transaminitis based on labs from yesterday. patient is on a statin as well as amiodarone. Will need to repeat these labs tomorrow. If still going up, may need liver ultrasound vs changing/stopping of meds. 6. Overall prognosis still remains poor given amount of downtime during arrest. CCT 31 minutes. Subjective Date of service: 04/11/17 Principal diagnosis: septic shock Interval history: Appreciate Surgery seeing patient and setting up trach and peg. Spoke with cards and yes there is risk but ok with holding plavix starting today and then reloading once procedure finished. Mental status is unchanged. Remainder of the review is negative. Objective Vital Signs - 12hr 04/10/17 04/10/17 04/10/17 21:01 22:00 22:34 Temperature Pulse Rate 109 H 91 H 92 H Pulse Rate [ From Monitor] Pulse Rate [ Left Dorsalis Pedis] Pulse Rate [ Left Radial] Pulse Rate [ Right Dorsalis Pedis] Pulse Rate [ Right Radial] Respiratory 25 H 27 H Rate Blood Pressure 96/63 104/53 104/53 O2 Sat by Pulse 95 96 Oximetry 04/10/17 04/10/17 04/10/17 23:01 23:21 23:49 Temperature 100.1 F H Pulse Rate 126 H 87 Pulse Rate [ From Monitor] Pulse Rate [ Left Dorsalis Pedis] Pulse Rate [ Left Radial] Pulse Rate [ Right Dorsalis Pedis] Pulse Rate [ Right Radial] Respiratory 30 H 27 H Rate Blood Pressure 94/56 94/56 O2 Sat by Pulse 94 98 Oximetry 04/11/17 04/11/17 04/11/17 00:00 00:25 01:00 Temperature Pulse Rate 113 H 88 113 H Pulse Rate [ 112 H From Monitor] Pulse Rate [ 110 H Left Dorsalis Pedis] Pulse Rate [ 111 H Left Radial] Pulse Rate [ 109 H Right Dorsalis Pedis] Pulse Rate [ 114 H Right Radial] Respiratory 20 24 Rate Blood Pressure 104/62 94/56 104/62 O2 Sat by Pulse 96 98 98 Oximetry 04/11/17 04/11/1718 02:00 03:00 03:22 Temperature 98.5 F Pulse Rate 87 119 H Pulse Rate [ From Monitor] Pulse Rate [ Left Dorsalis Pedis] Pulse Rate [ Left Radial] Pulse Rate [ Right Dorsalis Pedis] Pulse Rate [ Right Radial] Respiratory 26 H 25 H Rate Blood Pressure 101/63 101/63 O2 Sat by Pulse 96 98 Oximetry 04/11/17 04/11/17 04/11/17 04:00 04:35 05:00 Temperature Pulse Rate 89 89 93 H Pulse Rate [ 123 H From Monitor] Pulse Rate [ Left Dorsalis Pedis] Pulse Rate [ Left Radial] Pulse Rate [ Right Dorsalis Pedis] Pulse Rate [ Right Radial] Respiratory 27 H 27 H Rate Blood Pressure 111/60 111/60 106/60 O2 Sat by Pulse 95 98 99 Oximetry 04/11/17 04/11/17 04/11/17 06:00 06:05 07:00 Temperature Pulse Rate 128 H 120 H 92 H Pulse Rate [ From Monitor] Pulse Rate [ Left Dorsalis Pedis] Pulse Rate [ Left Radial] Pulse Rate [ Right Dorsalis Pedis] Pulse Rate [ Right Radial] Respiratory 31 H 28 H Rate Blood Pressure 96/66 96/66 110/59 O2 Sat by Pulse 88 96 Oximetry 04/11/17 04/11/17 08:00 08:42 Temperature 100.7 F H Pulse Rate 114 H 115 H Pulse Rate [ From Monitor] Pulse Rate [ Left Dorsalis Pedis] Pulse Rate [ Left Radial] Pulse Rate [ Right Dorsalis Pedis] Pulse Rate [ Right Radial] Respiratory 22 Rate Blood Pressure 110/59 117/61 O2 Sat by Pulse 99 98 Oximetry Constitutional: comatose Eyes: injected, other (pinpoint pupils equal and non reactive) ENT: other (orally intubated, ) Neck: supple, no JVD Effort: normal Ascultation: Bilateral: clear, diminished breath sounds ( ) Percussion: Bilateral: not dull Cardiovascular: regular rate and rhythm Gastrointestinal: hypoactive bowel sounds, other (mild distention) Integumentary: other (multiple tattoos) Extremities: no cyanosis Neurologic: unable to assess, other (no posturing on physical examination and stimulation,irregular breathing) CBC and BMP: 04/10/17 04:16 04/10/17 04:16 ABG, PT/INR, D-dimer: ABG POC ABG pH 7.517 (7.35-7.45) H 04/07/17 11:45 POC ABG pCO2 32.1 (35-45) L 04/07/17 11:45 POC ABG pO2 93 (80-105) 04/07/17 11:45 POC ABG HCO3 26.0 04/07/17 11:45 POC ABG Total CO2 27 04/07/17 11:45 POC ABG O2 Sat 98 04/07/17 11:45 PT/INR, D-dimer PT 14.9 Sec. (12.2-14.9) 04/10/17 04:16 INR 1.11 (0.87-1.13) 04/10/17 04:16 Abnormal lab findings: Abnormal Labs 03/29/17 03/29/17 03/29/17 11:35 11:35 11:40 WBC Hgb MCV 98 H MCH 33 H Plt Count Lymph % (Auto) Lymph # Seg Neutrophils % Lymphocytes % (Manual) Monocytes % (Manual) 9.0 H Nucleated RBC % 1.0 H Seg Neutrophils # Seg Neutrophils # Man Monocytes # (Manual) 0.9 H PT 15.8 H INR 1.20 H Activated Clotting Time POC ABG pH POC ABG pCO2 POC ABG pO2 Sodium Potassium 2.7 L* Chloride 95.3 L Carbon Dioxide 17 L BUN Creatinine Glucose 435 H POC Glucose Calcium Magnesium AST ALT Alkaline Phosphatase Total Creatine Kinase CK-MB (CK-2) CK-MB (CK-2) Rel Index Troponin T C-Reactive Protein Total Protein 6.1 L Albumin 3.5 L Triglycerides Ur Specific [place] 03/29/17 03/29/17 03/29/17 12:34 13:10 13:25 WBC Hgb MCV MCH Plt Count Lymph % (Auto) Lymph # Seg Neutrophils % Lymphocytes % (Manual) Monocytes % (Manual) Nucleated RBC % Seg Neutrophils # Seg Neutrophils # Man Monocytes # (Manual) PT INR Activated Clotting Time 142 H 169 H 175 H POC ABG pH POC ABG pCO2 POC ABG pO2 Sodium Potassium Chloride Carbon Dioxide BUN Creatinine Glucose POC Glucose Calcium Magnesium AST ALT Alkaline Phosphatase Total Creatine Kinase CK-MB (CK-2) CK-MB (CK-2) Rel Index Troponin T C-Reactive Protein Total Protein Albumin Triglycerides Ur Specific [place] 03/29/17 03/29/17 03/29/17 14:50 15:18 19:52 WBC Hgb MCV MCH Plt Count Lymph % (Auto) Lymph # Seg Neutrophils % Lymphocytes % (Manual) Monocytes % (Manual) Nucleated RBC % Seg Neutrophils # Seg Neutrophils # Man Monocytes # (Manual) PT INR Activated Clotting Time 175 H POC ABG pH 7.293 L POC ABG pCO2 POC ABG pO2 602 H Sodium Potassium Chloride Carbon Dioxide BUN Creatinine Glucose POC Glucose Calcium Magnesium AST ALT Alkaline Phosphatase Total Creatine Kinase 7263 H CK-MB (CK-2) > 300.0 H CK-MB (CK-2) Rel Index 4.1 H Troponin T 8.080 H* D C-Reactive Protein Total Protein Albumin Triglycerides 195 H Ur Specific [place] 03/30/17 03/30/17 03/30/17 03:50 03:50 06:19 WBC 19.5 H Hgb MCV MCH Plt Count Lymph % (Auto) Lymph # Seg Neutrophils % Lymphocytes % (Manual) 7.0 L Monocytes % (Manual) Nucleated RBC % Seg Neutrophils # Seg Neutrophils # Man 12.7 H Monocytes # (Manual) 1.4 H PT INR Activated Clotting Time POC ABG pH POC ABG pCO2 28.2 L POC ABG pO2 108 H Sodium Potassium Chloride 108.9 H Carbon Dioxide 15 L BUN 25 H Creatinine Glucose 158 H POC Glucose Calcium 8.1 L Magnesium AST ALT Alkaline Phosphatase Total Creatine Kinase 7963 H CK-MB (CK-2) > 300.0 H CK-MB (CK-2) Rel Index Troponin T 6.850 H* C-Reactive Protein Total Protein Albumin Triglycerides Ur Specific [place] 03/30/17 03/30/17 03/31/17 09:45 16:04 02:19 WBC Hgb MCV MCH Plt Count Lymph % (Auto) Lymph # Seg Neutrophils % Lymphocytes % (Manual) Monocytes % (Manual) Nucleated RBC % Seg Neutrophils # Seg Neutrophils # Man Monocytes # (Manual) PT INR Activated Clotting Time POC ABG pH POC ABG pCO2 POC ABG pO2 Sodium Potassium Chloride Carbon Dioxide BUN Creatinine Glucose POC Glucose 137 H Calcium Magnesium AST ALT Alkaline Phosphatase Total Creatine Kinase CK-MB (CK-2) CK-MB (CK-2) Rel Index Troponin T C-Reactive Protein 21.80 H Total Protein Albumin Triglycerides Ur Specific [place] 1.031 H 03/31/17 03/31/17 03/31/17 03:57 06:54 09:22 WBC Hgb MCV MCH Plt Count Lymph % (Auto) Lymph # Seg Neutrophils % Lymphocytes % (Manual) Monocytes % (Manual) Nucleated RBC % Seg Neutrophils # Seg Neutrophils # Man Monocytes # (Manual) PT INR Activated Clotting Time POC ABG pH 7.475 H POC ABG pCO2 25.4 L POC ABG pO2 62 L Sodium Potassium Chloride Carbon Dioxide 19 L BUN 22 H Creatinine 0.6 L Glucose 148 H POC Glucose 143 H Calcium 8.3 L Magnesium AST ALT Alkaline Phosphatase Total Creatine Kinase CK-MB (CK-2) CK-MB (CK-2) Rel Index Troponin T C-Reactive Protein Total Protein Albumin Triglycerides Ur Specific [place] 03/31/17 03/31/17 03/31/17 11:40 17:47 23:38 WBC Hgb MCV MCH Plt Count Lymph % (Auto) Lymph # Seg Neutrophils % Lymphocytes % (Manual) Monocytes % (Manual) Nucleated RBC % Seg Neutrophils # Seg Neutrophils # Man Monocytes # (Manual) PT INR Activated Clotting Time POC ABG pH POC ABG pCO2 POC ABG pO2 Sodium Potassium Chloride Carbon Dioxide BUN Creatinine Glucose POC Glucose 127 H 137 H 148 H Calcium Magnesium AST ALT Alkaline Phosphatase Total Creatine Kinase CK-MB (CK-2) CK-MB (CK-2) Rel Index Troponin T C-Reactive Protein Total Protein Albumin Triglycerides Ur Specific [place] 04/01/17 04/01/17 04/01/17 04:29 05:01 11:54 WBC Hgb MCV MCH Plt Count Lymph % (Auto) Lymph # Seg Neutrophils % Lymphocytes % (Manual) Monocytes % (Manual) Nucleated RBC % Seg Neutrophils # Seg Neutrophils # Man Monocytes # (Manual) PT INR Activated Clotting Time POC ABG pH 7.513 H POC ABG pCO2 22.1 L POC ABG pO2 64 L Sodium Potassium Chloride Carbon Dioxide BUN Creatinine Glucose POC Glucose 121 H Calcium Magnesium AST ALT Alkaline Phosphatase Total Creatine Kinase CK-MB (CK-2) CK-MB (CK-2) Rel Index Troponin T C-Reactive Protein Total Protein Albumin Triglycerides 151 H Ur Specific [place] 04/01/17 04/02/17 04/02/17 18:17 00:11 04:52 WBC Hgb MCV MCH Plt Count Lymph % (Auto) Lymph # Seg Neutrophils % Lymphocytes % (Manual) Monocytes % (Manual) Nucleated RBC % Seg Neutrophils # Seg Neutrophils # Man Monocytes # (Manual) PT INR Activated Clotting Time POC ABG pH 7.524 H POC ABG pCO2 25.5 L POC ABG pO2 66 L Sodium Potassium Chloride Carbon Dioxide BUN Creatinine Glucose POC Glucose 117 H 122 H Calcium Magnesium AST ALT Alkaline Phosphatase Total Creatine Kinase CK-MB (CK-2) CK-MB (CK-2) Rel Index Troponin T C-Reactive Protein Total Protein Albumin Triglycerides Ur Specific [place] 04/02/17 04/02/17 04/02/17 05:18 10:41 12:19 WBC Hgb MCV MCH Plt Count Lymph % (Auto) Lymph # Seg Neutrophils % Lymphocytes % (Manual) Monocytes % (Manual) Nucleated RBC % Seg Neutrophils # Seg Neutrophils # Man Monocytes # (Manual) PT INR Activated Clotting Time POC ABG pH 7.534 H POC ABG pCO2 27.4 L POC ABG pO2 Sodium Potassium Chloride Carbon Dioxide BUN Creatinine Glucose POC Glucose 132 H 129 H Calcium Magnesium AST ALT Alkaline Phosphatase Total Creatine Kinase CK-MB (CK-2) CK-MB (CK-2) Rel Index Troponin T C-Reactive Protein Total Protein Albumin Triglycerides Ur Specific [place] 04/02/17 04/03/17 04/03/17 18:05 00:08 05:09 WBC Hgb MCV MCH Plt Count Lymph % (Auto) Lymph # Seg Neutrophils % Lymphocytes % (Manual) Monocytes % (Manual) Nucleated RBC % Seg Neutrophils # Seg Neutrophils # Man Monocytes # (Manual) PT INR Activated Clotting Time POC ABG pH 7.455 H POC ABG pCO2 33.2 L POC ABG pO2 120 H Sodium Potassium Chloride Carbon Dioxide BUN Creatinine Glucose POC Glucose 136 H 128 H Calcium Magnesium AST ALT Alkaline Phosphatase Total Creatine Kinase CK-MB (CK-2) CK-MB (CK-2) Rel Index Troponin T C-Reactive Protein Total Protein Albumin Triglycerides Ur Specific [place] 04/03/17 04/03/17 04/03/17 06:32 11:54 12:16 WBC 11.9 H Hgb MCV MCH Plt Count 125 L Lymph % (Auto) 4.8 L Lymph # 0.6 L Seg Neutrophils % 86.7 H Lymphocytes % (Manual) Monocytes % (Manual) Nucleated RBC % Seg Neutrophils # 10.3 H Seg Neutrophils # Man Monocytes # (Manual) PT INR Activated Clotting Time POC ABG pH POC ABG pCO2 POC ABG pO2 Sodium Potassium Chloride Carbon Dioxide BUN Creatinine Glucose POC Glucose 138 H 143 H Calcium Magnesium AST ALT Alkaline Phosphatase Total Creatine Kinase CK-MB (CK-2) CK-MB (CK-2) Rel Index Troponin T C-Reactive Protein Total Protein Albumin Triglycerides Ur Specific [place] 04/03/17 04/03/17 04/04/17 17:33 23:59 04:34 WBC Hgb MCV MCH Plt Count Lymph % (Auto) Lymph # Seg Neutrophils % Lymphocytes % (Manual) Monocytes % (Manual) Nucleated RBC % Seg Neutrophils # Seg Neutrophils # Man Monocytes # (Manual) PT INR Activated Clotting Time POC ABG pH 7.457 H POC ABG pCO2 29.8 L POC ABG pO2 76 L Sodium Potassium Chloride Carbon Dioxide BUN Creatinine Glucose POC Glucose 130 H 155 H Calcium Magnesium AST ALT Alkaline Phosphatase Total Creatine Kinase CK-MB (CK-2) CK-MB (CK-2) Rel Index Troponin T C-Reactive Protein Total Protein Albumin Triglycerides Ur Specific [place] 04/04/17 04/04/17 04/04/17 05:27 12:22 18:18 WBC Hgb MCV MCH Plt Count Lymph % (Auto) Lymph # Seg Neutrophils % Lymphocytes % (Manual) Monocytes % (Manual) Nucleated RBC % Seg Neutrophils # Seg Neutrophils # Man Monocytes # (Manual) PT INR Activated Clotting Time POC ABG pH POC ABG pCO2 POC ABG pO2 Sodium Potassium Chloride Carbon Dioxide BUN Creatinine Glucose POC Glucose 164 H 146 H 130 H Calcium Magnesium AST ALT Alkaline Phosphatase Total Creatine Kinase CK-MB (CK-2) CK-MB (CK-2) Rel Index Troponin T C-Reactive Protein Total Protein Albumin Triglycerides Ur Specific [place] 04/05/17 04/05/17 04/05/17 04:43 05:28 11:36 WBC Hgb MCV MCH Plt Count Lymph % (Auto) Lymph # Seg Neutrophils % Lymphocytes % (Manual) Monocytes % (Manual) Nucleated RBC % Seg Neutrophils # Seg Neutrophils # Man Monocytes # (Manual) PT INR Activated Clotting Time POC ABG pH 7.479 H POC ABG pCO2 33.5 L POC ABG pO2 76 L Sodium Potassium Chloride Carbon Dioxide BUN Creatinine Glucose POC Glucose 145 H 136 H Calcium Magnesium AST ALT Alkaline Phosphatase Total Creatine Kinase CK-MB (CK-2) CK-MB (CK-2) Rel Index Troponin T C-Reactive Protein Total Protein Albumin Triglycerides Ur Specific [place] 04/05/17 04/06/17 04/06/17 17:58 00:16 05:26 WBC Hgb MCV MCH Plt Count Lymph % (Auto) Lymph # Seg Neutrophils % Lymphocytes % (Manual) Monocytes % (Manual) Nucleated RBC % Seg Neutrophils # Seg Neutrophils # Man Monocytes # (Manual) PT INR Activated Clotting Time POC ABG pH POC ABG pCO2 POC ABG pO2 Sodium Potassium Chloride Carbon Dioxide BUN Creatinine Glucose POC Glucose 130 H 159 H 146 H Calcium Magnesium AST ALT Alkaline Phosphatase Total Creatine Kinase CK-MB (CK-2) CK-MB (CK-2) Rel Index Troponin T C-Reactive Protein Total Protein Albumin Triglycerides Ur Specific [place] 04/06/17 04/06/17 04/07/17 13:11 16:54 11:45 WBC Hgb MCV MCH Plt Count Lymph % (Auto) Lymph # Seg Neutrophils % Lymphocytes % (Manual) Monocytes % (Manual) Nucleated RBC % Seg Neutrophils # Seg Neutrophils # Man Monocytes # (Manual) PT INR Activated Clotting Time POC ABG pH 7.517 H POC ABG pCO2 32.1 L POC ABG pO2 Sodium Potassium Chloride Carbon Dioxide BUN Creatinine Glucose POC Glucose 132 H 123 H Calcium Magnesium AST ALT Alkaline Phosphatase Total Creatine Kinase CK-MB (CK-2) CK-MB (CK-2) Rel Index Troponin T C-Reactive Protein Total Protein Albumin Triglycerides Ur Specific [place] 04/07/17 04/07/17 04/07/17 12:51 17:40 23:55 WBC Hgb MCV MCH Plt Count Lymph % (Auto) Lymph # Seg Neutrophils % Lymphocytes % (Manual) Monocytes % (Manual) Nucleated RBC % Seg Neutrophils # Seg Neutrophils # Man Monocytes # (Manual) PT INR Activated Clotting Time POC ABG pH POC ABG pCO2 POC ABG pO2 Sodium Potassium Chloride Carbon Dioxide BUN Creatinine Glucose POC Glucose 138 H 154 H 143 H Calcium Magnesium AST ALT Alkaline Phosphatase Total Creatine Kinase CK-MB (CK-2) CK-MB (CK-2) Rel Index Troponin T C-Reactive Protein Total Protein Albumin Triglycerides Ur Specific [place] 04/08/17 04/08/17 04/08/17 05:27 11:14 17:44 WBC Hgb MCV MCH Plt Count Lymph % (Auto) Lymph # Seg Neutrophils % Lymphocytes % (Manual) Monocytes % (Manual) Nucleated RBC % Seg Neutrophils # Seg Neutrophils # Man Monocytes # (Manual) PT INR Activated Clotting Time POC ABG pH POC ABG pCO2 POC ABG pO2 Sodium Potassium Chloride Carbon Dioxide BUN Creatinine Glucose POC Glucose 142 H 153 H 129 H Calcium Magnesium AST ALT Alkaline Phosphatase Total Creatine Kinase CK-MB (CK-2) CK-MB (CK-2) Rel Index Troponin T C-Reactive Protein Total Protein Albumin Triglycerides Ur Specific [place] 04/09/17 04/09/17 04/09/17 08:20 11:21 17:37 WBC Hgb MCV MCH Plt Count Lymph % (Auto) Lymph # Seg Neutrophils % Lymphocytes % (Manual) Monocytes % (Manual) Nucleated RBC % Seg Neutrophils # Seg Neutrophils # Man Monocytes # (Manual) PT INR Activated Clotting Time POC ABG pH POC ABG pCO2 POC ABG pO2 Sodium 147 H Potassium Chloride 108.8 H Carbon Dioxide BUN 39 H Creatinine 0.5 L Glucose 138 H POC Glucose 152 H 109 H Calcium Magnesium AST ALT Alkaline Phosphatase Total Creatine Kinase CK-MB (CK-2) CK-MB (CK-2) Rel Index Troponin T C-Reactive Protein Total Protein Albumin Triglycerides Ur Specific [place] 04/10/17 04/10/17 04/10/17 00:13 04:16 04:16 WBC Hgb 11.5 L MCV 96 H MCH Plt Count 103 L Lymph % (Auto) 11.1 L Lymph # Seg Neutrophils % 81.5 H Lymphocytes % (Manual) Monocytes % (Manual) Nucleated RBC % Seg Neutrophils # 8.8 H Seg Neutrophils # Man Monocytes # (Manual) PT INR Activated Clotting Time POC ABG pH POC ABG pCO2 POC ABG pO2 Sodium 148 H Potassium Chloride 109.0 H Carbon Dioxide BUN 36 H Creatinine 0.5 L Glucose 131 H POC Glucose 127 H Calcium 8.1 L Magnesium 2.40 H AST 206 H ALT 228 H Alkaline Phosphatase 178 H Total Creatine Kinase CK-MB (CK-2) CK-MB (CK-2) Rel Index Troponin T C-Reactive Protein Total Protein Albumin 2.8 L Triglycerides Ur Specific [place] 04/10/17 04/10/17 04/10/17 06:01 11:57 18:27 WBC Hgb MCV MCH Plt Count Lymph % (Auto) Lymph # Seg Neutrophils % Lymphocytes % (Manual) Monocytes % (Manual) Nucleated RBC % Seg Neutrophils # Seg Neutrophils # Man Monocytes # (Manual) PT INR Activated Clotting Time POC ABG pH POC ABG pCO2 POC ABG pO2 Sodium Potassium Chloride Carbon Dioxide BUN Creatinine Glucose POC Glucose 108 H 154 H 130 H Calcium Magnesium AST ALT Alkaline Phosphatase Total Creatine Kinase CK-MB (CK-2) CK-MB (CK-2) Rel Index Troponin T C-Reactive Protein Total Protein Albumin Triglycerides Ur Specific [place]
--- NOTE | 2017-04-11 09:16 | Progress Note ---
Assessment and Plan Out of hospital VF arrest Acute anterior STEMI s/p PCI of the LAD using BM stents deployed. reduced LVEF 30-35% by echocardiogram. Respiratory failure intubated on the vent Anoxic brain injury Pneumonia: MRSA Elevated Transaminitis Plan: We will discontinue amiodarone and statin therapy due to elevated transaminitis. Continue to monitor labs. Subjective Date of service: 04/11/17 Principal diagnosis: septic shock Interval history: Patient remains intubated, unresponsive on the vent. Plavix held for planned for PEG and trach. Noted elevated liver enzymes. Objective Vital Signs Temp Pulse Pulse Pulse Pulse Pulse Pulse 04/11/17 08:42 115 H 04/11/17 08:00 100.7 F H 114 H 04/11/17 07:00 92 H 04/11/17 06:05 120 H 04/11/17 06:00 128 H 04/11/17 05:00 93 H 04/11/17 04:35 89 04/11/17 04:00 89 123 H 04/11/17 03:22 98.5 F 04/11/17 03:00 119 H 04/11/17 02:00 87 04/11/17 01:00 113 H 04/11/17 00:25 88 04/11/17 00:00 113 H 112 H 110 H 111 H 109 H 114 H 04/10/17 23:49 87 04/10/17 23:21 100.1 F H 04/10/17 23:01 126 H 04/10/17 22:34 92 H 04/10/17 22:00 91 H 04/10/17 21:01 109 H 04/10/17 20:00 100.6 F H 102 H 102 H 106 H 110 H 110 H 110 H 04/10/17 19:00 89 04/10/17 18:16 94 H 04/10/17 18:00 89 04/10/17 17:00 86 04/10/17 16:00 98 H 04/10/17 15:50 102 H 04/10/17 15:46 93 H 04/10/17 15:26 99.7 F H 04/10/17 15:00 102 H 04/10/17 14:00 91 H 04/10/17 13:00 100 H 04/10/17 12:00 99.2 F 95 H 01/15/18 11:32 100 H 04/10/17 11:00 80 04/10/17 10:00 86 04/10/17 09:25 113 H 04/10/17 09:23 113 H Resp BP Pulse Ox 04/11/17 08:42 117/61 98 04/11/17 08:00 22 110/59 99 04/11/17 07:00 28 H 110/59 96 04/11/17 06:05 96/66 04/11/17 06:00 31 H 96/66 88 04/11/17 05:00 27 H 106/60 99 04/11/17 04:35 111/60 98 04/11/17 04:00 27 H 111/60 95 04/11/17 03:22 04/11/17 03:00 25 H 101/63 98 04/11/17 02:00 26 H 101/63 96 04/11/17 01:00 24 104/62 98 04/11/17 00:25 94/56 98 04/11/17 00:00 20 104/62 96 04/10/17 23:49 27 H 94/56 98 04/10/17 23:21 04/10/17 23:01 30 H 94/56 94 04/10/17 22:34 104/53 04/10/17 22:00 27 H 104/53 96 04/10/17 21:01 25 H 96/63 95 04/10/17 20:00 21 105/63 95 04/10/17 19:00 27 H 96/61 04/10/17 18:16 101/52 04/10/17 18:00 27 H 101/52 94 04/10/17 17:00 26 H 102/59 96 04/10/17 16:00 25 H 103/61 94 04/10/17 15:50 96 04/10/17 15:46 94/62 04/10/17 15:26 04/10/17 15:00 23 94/62 99 04/10/17 14:00 27 H 98/56 95 04/10/17 13:00 17 97/61 97 04/10/17 12:00 22 85/52 97 04/10/17 11:32 96 04/10/17 11:00 27 H 89/54 98 04/10/17 10:00 12 98/59 96 04/10/17 09:25 103/62 01/15/18 09:23 103/62 - Physical Examination General: Other (unresponsive on the vent) Cardiac: Positive: Reg Rate and Rhythm
[2017-04-11] MEDS: ASPIRIN PO SCH (10:11)
[2017-04-11] MEDS: PROTONIX FEEDTUBE SCH (10:11)
[2017-04-11] MEDS: HEPARIN SUB-Q SCH ×2 (10:11→21:59)
[2017-04-11] MEDS: ZESTRIL PO SCH (10:11)
[2017-04-11] MEDS: CORDARONE PO SCH (10:12)
[2017-04-11] MEDS: COLACE FEEDTUBE SCH ×2 (10:12→21:59)
[2017-04-11] MEDS: LOPRESSOR PO SCH ×3 (10:16→18:04)
--- NOTE | 2017-04-11 13:53 | Progress Note ---
Assessment and Plan Assessment and plan: 46 YO Male with No PMH presents to ED for evaluation. Pt is unresponsive and unable to provide history. Pt history taken from ED staff and EMS. Pt was at work today and suddenly passed out around 1050 hrs-which was witnessed by patients coworkers. EMS notified, and upon arrival the patient was found to have V Fib. Pt treated IAW ACLS protocol. The patient was given 3 defibrillations, 2 rounds of epinephrine, Narcan, and a half amp of sodium bicarbonate. Pt found to be in respiratory distress and was intubated and placed on vent support. Cardiology team notified, and patient was taken urgently to blood bank laboratory technologist, and admitted to ICU. . 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 He likely had aprolonged period of time without perfusion to his brain. We will continue to monitor his mental status, -His prognosis is grim with very little chance of recovery, this has been conveyed to the family. We would recommend hospice and withdrawal of life supports versus trach and SNIF placement. This was dw family, Critical care physician and neurologist also conveyed the same information to the family -at this time the family wants trache and PEG and for him to be dc home in care of his family members, medicaid and medicare/disability application pending -family has discussed the plan for trache/peg with General Surgeon -. Plavix now on hold, Trach and Peg scheduled for Monday Acute Respiratory failure requiring MV >96 hours Pt intubated, continue ventilator . Plavix now on hold, Trach and Peg scheduled for Monday Anterior STEMI sp cardiac arrest case cardiology Emergency cath protocol called upon arrival, we found 100% occlusion of the LAD in its prox-mid segment. Successful primari PCI-angioplasty and 3.0-3.5mm BM stents deployed. LAD flow restored-excellent result. Relative hypotension due to meds reduce lisinopril and metoprolol dose Aspiration PNA due to MRSA/Gram positive Sepsis case angela ID contact isolation completed zyvox on 04/10 cardiogenic Shock -Likely cardiogenic and possibly also septic shock Currently off pressors, has been weaned Sepsis/Right lower lobe aspiration pneumonia, most likely due to gram-positive bacteria continue abx for one more day Hypokalemia repleted, Now resolved Hypernatremia/dehydration/free water deficit give free water via NGT unable to go to [facility] as has no insurance -medicare disability application in process of being filled out by family -family is hoping to take him home on vent/peg tube and have his sister care for him -case dw Neurologist, Dr Bradley and Dr Perkins The high probability of a clinically significant, sudden or life threatening deterioration of the [Pulmonary, cardiac, renal] system(s) required my full and direct attention, intervention and personal management. The aggregate critical care time was [65] minutes. This time is in addition to time spent performing reported procedures but includes the following: [x] Data Review and interpretation [x] Patient assessment and monitoring of vital signs [x] Documentation [x] Medication orders and management History Interval history: Patient is nonresponsive, lacks most reflexes, had fever, no vomiting, no agitation Hospitalist Physical - Physical exam Narrative exam: General.: Comatose breathes over the vent HEENT: Moist mucous membranes, no LAD, Neck: supple Cardiac: S1-S2 heard Lungs: clear to auscultation bilaterally Abdomen: soft , nontender, nondistended, bowel sounds positive Extremities: no edema clubbing or cyanosis Skin: no rash or lesions Neurologic: Patient is in deep coma, lacks most reflexes, at this time, only has gag reflexs, corneal reflex is absent and decerebrate posturing, pupils are fixed and non reactive, lacks all other reflexes, opens eyes spontaneously - Constitutional Vitals: Temp Pulse Resp BP Pulse Ox 100.7 F H 84 28 H 108/67 99 04/11/17 08:00 04/11/17 12:01 04/11/17 11:00 04/11/17 12:01 04/11/17 12:01 General appearance: Present: severe distress Results - Labs CBC & Chem 7: 04/10/17 04:16 04/10/17 04:16 Labs: Laboratory Last Values WBC 10.8 K/mm3 (4.5-11.0) 04/10/17 04:16 RBC 3.70 M/mm3 (3.65-5.03) 04/10/17 04:16 Hgb 11.5 gm/dl (11.8-15.2) L 04/10/17 04:16 Hct 35.5 % (35.5-45.6) 04/10/17 04:16 MCV 96 fl (84-94) H 04/10/17 04:16 MCH 31 pg (28-32) 04/10/17 04:16 MCHC 32 % (32-34) 04/10/17 04:16 RDW 14.4 % (13.2-15.2) 04/10/17 04:16 Plt Count 103 K/mm3 (140-440) L 04/10/17 04:16 Lymph % (Auto) 11.1 % (13.4-35.0) L 04/10/17 04:16 Schuyler % (Auto) 5.1 % (0.0-7.3) 04/10/17 04:16 Eos % (Auto) 2.0 % (0.0-4.3) 04/10/17 04:16 Baso % (Auto) 0.3 % (0.0-1.8) 04/10/17 04:16 Lymph # 1.2 K/mm3 (1.2-5.4) 04/10/17 04:16 Schuyler # 0.5 K/mm3 (0.0-0.8) 04/10/17 04:16 Eos # 0.2 K/mm3 (0.0-0.4) 04/10/17 04:16 Baso # 0.0 K/mm3 (0.0-0.1) 04/10/17 04:16 Add Manual Diff Complete 03/30/17 03:50 Total Counted 100 03/30/17 03:50 Seg Neutrophils % 81.5 % (40.0-70.0) H 04/10/17 04:16 Seg Neuts % (Manual) 65.0 % (40.0-70.0) 03/30/17 03:50 Band Neutrophils % 17.0 % 03/30/17 03:50 Lymphocytes % (Manual) 7.0 % (13.4-35.0) L 03/30/17 03:50 Reactive Lymphs % (Man) 0 % 03/30/17 03:50 Monocytes % (Manual) 7.0 % (0.0-7.3) 03/30/17 03:50 Eosinophils % (Manual) 0 % (0.0-4.3) 03/30/17 03:50 Basophils % (Manual) 0 % (0.0-1.8) 03/30/17 03:50 Metamyelocytes % 4.0 % 03/30/17 03:50 Myelocytes % 0 % 03/30/17 03:50 Promyelocytes % 0 % 03/30/17 03:50 Blast Cells % 0 % 03/30/17 03:50 Nucleated RBC % Not Reportable 03/30/17 03:50 Seg Neutrophils # 8.8 K/mm3 (1.8-7.7) H 04/10/17 04:16 Seg Neutrophils # Man 12.7 K/mm3 (1.8-7.7) H 03/30/17 03:50 Band Neutrophils # 3.3 K/mm3 03/30/17 03:50 Lymphocytes # (Manual) 1.4 K/mm3 (1.2-5.4) 03/30/17 03:50 Abs React Lymphs (Man) 0.0 K/mm3 03/30/17 03:50 Monocytes # (Manual) 1.4 K/mm3 (0.0-0.8) H 03/30/17 03:50 Eosinophils # (Manual) 0.0 K/mm3 (0.0-0.4) 03/30/17 03:50 Basophils # (Manual) 0.0 K/mm3 (0.0-0.1) 03/30/17 03:50 Metamyelocytes # 0.8 K/mm3 03/30/17 03:50 Myelocytes # 0.0 K/mm3 03/30/17 03:50 Promyelocytes # 0.0 K/mm3 03/30/17 03:50 Blast Cells # 0.0 K/mm3 03/30/17 03:50 WBC Morphology Not Reportable 03/30/17 03:50 Hypersegmented Neuts Not Reportable 03/30/17 03:50 Hyposegmented Neuts Not Reportable 03/30/17 03:50 Hypogranular Neuts Not Reportable 03/30/17 03:50 Smudge Cells Not Reportable 03/30/17 03:50 Toxic Granulation Not Reportable 03/30/17 03:50 Toxic Vacuolation Not Reportable 03/30/17 03:50 Dohle Bodies Not Reportable 03/30/17 03:50 Pelger-Huet Anomaly Not Reportable 03/30/17 03:50 Sherry Rods Not Reportable 03/30/17 03:50 Platelet Estimate Appears normal 03/30/17 03:50 Clumped Platelets Not Reportable 03/30/17 03:50 Plt Clumps, EDTA Not Reportable 03/30/17 03:50 Large Platelets Not Reportable 03/30/17 03:50 Giant Platelets Not Reportable 03/30/17 03:50 Platelet Satelliting Not Reportable 03/30/17 03:50 Plt Morphology Comment Not Reportable 03/30/17 03:50 RBC Morphology Not Reportable 03/30/17 03:50 Dimorphic RBCs Not Reportable 03/30/17 03:50 Polychromasia Not Reportable 03/30/17 03:50 Hypochromasia Not Reportable 03/30/17 03:50 Poikilocytosis Not Reportable 03/30/17 03:50 Anisocytosis Few 03/30/17 03:50 Microcytosis Not Reportable 03/30/17 03:50 Macrocytosis Not Reportable 03/30/17 03:50 Spherocytes Not Reportable 03/30/17 03:50 Pappenheimer Bodies Not Reportable 03/30/17 03:50 Sickle Cells Not Reportable 03/30/17 03:50 Target Cells Not Reportable 03/30/17 03:50 Tear Drop Cells Not Reportable 03/30/17 03:50 Ovalocytes Not Reportable 03/30/17 03:50 Helmet Cells Not Reportable 03/30/17 03:50 Tamayo-Frederick Bodies Not Reportable 03/30/17 03:50 Bazine Rings Not Reportable 03/30/17 03:50 Nusrat Cells Not Reportable 03/30/17 03:50 Bite Cells Not Reportable 03/30/17 03:50 Crenated Cell Not Reportable 03/30/17 03:50 Elliptocytes Not Reportable 03/30/17 03:50 Acanthocytes (Spur) Not Reportable 03/30/17 03:50 Rouleaux Not Reportable 03/30/17 03:50 Hemoglobin C Crystals Not Reportable 03/30/17 03:50 Schistocytes Not Reportable 03/30/17 03:50 Malaria parasites Not Reportable 03/30/17 03:50 Jermaine Bodies Not Reportable 03/30/17 03:50 Hem Pathologist Commnt No 03/30/17 03:50 PT 14.9 Sec. (12.2-14.9) 04/10/17 04:16 INR 1.11 (0.87-1.13) 04/10/17 04:16 APTT 27.8 Sec. (24.2-36.6) 04/10/17 04:16 Activated Clotting Time 92 (74-137) 03/29/17 17:47 POC ABG pH 7.517 (7.35-7.45) H 04/07/17 11:45 POC ABG pCO2 32.1 (35-45) L 04/07/17 11:45 POC ABG pO2 93 (80-105) 04/07/17 11:45 POC ABG HCO3 26.0 04/07/17 11:45 POC ABG Total CO2 27 04/07/17 11:45 POC ABG O2 Sat 98 04/07/17 11:45 POC ABG Base Excess 3 04/07/17 11:45 FiO2 35 % 04/07/17 11:45 Sodium 148 mmol/L (137-145) H 04/10/17 04:16 Potassium 3.9 mmol/L (3.6-5.0) 04/10/17 04:16 Chloride 109.0 mmol/L (98-107) H 04/10/17 04:16 Carbon Dioxide 23 mmol/L (22-30) 04/10/17 04:16 Anion Gap 20 mmol/L 04/10/17 04:16 BUN 36 mg/dL (9-20) H 04/10/17 04:16 Creatinine 0.5 mg/dL (0.8-1.5) L 04/10/17 04:16 Estimated GFR > 60 ml/min 04/10/17 04:16 BUN/Creatinine Ratio 72 % 04/10/17 04:16 Glucose 131 mg/dL (75-100) H 04/10/17 04:16 POC Glucose 130 (70-105) H 04/10/17 18:27 Calcium 8.1 mg/dL (8.4-10.2) L 04/10/17 04:16 Phosphorus 2.90 mg/dL (2.5-4.5) 04/10/17 04:16 Magnesium 2.40 mg/dL (1.7-2.3) H 04/10/17 04:16 Total Bilirubin 0.60 mg/dL (0.1-1.2) 04/10/17 04:16 AST 206 units/L (5-40) H 04/10/17 04:16 ALT 228 units/L (7-56) H 04/10/17 04:16 Alkaline Phosphatase 178 units/L (35-129) H 04/10/17 04:16 Total Creatine Kinase 7963 units/L (55-170) H 03/30/17 03:50 CK-MB (CK-2) > 300.0 ng/mL (0.0-4.0) H 03/30/17 03:50 CK-MB (CK-2) Rel Index 3.7 (0-4) 03/30/17 03:50 Troponin T 6.850 ng/mL (0.00-0.029) H* 03/30/17 03:50 C-Reactive Protein 21.80 mg/dL (0.00-1.30) H 03/30/17 16:04 Total Protein 6.7 g/dL (6.3-8.2) 04/10/17 04:16 Albumin 2.8 g/dL (3.9-5) L 04/10/17 04:16 Albumin/Globulin Ratio 0.7 % 04/10/17 04:16 Triglycerides 151 mg/dL (2-149) H 04/01/17 04:29 Cholesterol 164 mg/dL (50-199) 03/29/17 19:52 LDL Cholesterol Direct 81 mg/dL (50-130) 03/29/17 19:52 HDL Cholesterol 44 mg/dL (40-59) 03/29/17 19:52 Cholesterol/HDL Ratio 3.72 % 03/29/17 19:52 Urine Color Yellow (Yellow) 03/30/17 09:45 Urine Turbidity Turbid (Clear) 03/30/17 09:45 Urine pH 5.0 (5.0-7.0) 03/30/17 09:45 Ur Specific [place] 1.031 (1.003-1.030) H 03/30/17 09:45 Urine Protein 30 mg/dl mg/dL (Negative) 03/30/17 09:45 Urine Glucose (UA) Neg mg/dL (Negative) 03/30/17 09:45 Urine Ketones 20 mg/dL (Negative) 03/30/17 09:45 Urine Blood Mod (Negative) 03/30/17 09:45 Urine Nitrite Neg (Negative) 03/30/17 09:45 Urine Bilirubin Neg (Negative) 03/30/17 09:45 Urine Urobilinogen < 2.0 mg/dL (<2.0) 03/30/17 09:45 Ur Leukocyte Esterase Tr (Negative) 03/30/17 09:45 Urine WBC (Auto) 1.0 /HPF (0.0-6.0) 03/30/17 09:45 Urine RBC (Auto) 14.0 /HPF (0.0-6.0) 03/30/17 09:45 Amorphous Crystals 1+ 03/30/17 09:45 Urine Opiates Screen Presumptive negative 03/30/17 09:45 Urine Methadone Screen Presumptive negative 03/30/17 09:45 Ur Barbiturates Screen Presumptive negative 03/30/17 09:45 Ur Phencyclidine Scrn Presumptive negative 03/30/17 09:45 Ur Amphetamines Screen Presumptive positive 03/30/17 09:45 U Benzodiazepines Scrn Presumptive positive 03/30/17 09:45 Urine Cocaine Screen Presumptive negative 03/30/17 09:45 U Marijuana (THC) Screen Presumptive negative 03/30/17 09:45 Drugs of Abuse Note Disclamer 03/30/17 09:45 Blood Type O POSITIVE 03/29/17 11:35 Antibody Screen Negative 03/29/17 11:35
[2017-04-12] MEDS: LOPRESSOR PO SCH ×4 (00:25→19:24)
[2017-04-12] MEDS: NITRO DUR TD SCH (06:00)
[2017-04-12 06:50] LABS: Albumin 2.8 g/dL (3.9-5); Bilirubin,Direct 0.2 mg/dL (0-0.2)
--- NOTE | 2017-04-12 09:05 | Progress Note ---
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 1. Plavix now on hold 2. Trach and Peg scheduled for Monday 3. Continue vent support and management 4. Continue all other cardiac meds 5. LFT's improved, off amio and statin, will continue to monitor to resolution 6. Overall prognosis still remains poor given amount of downtime during arrest. CCT 31 minutes. Subjective Date of service: 04/12/17 Principal diagnosis: septic shock Interval history: No acute events. LFT's improved this am. Cards stopped statin and amiodarone Objective Vital Signs - 12hr 04/11/17 04/11/17 04/11/17 22:00 22:18 23:00 Temperature Pulse Rate 95 H 91 H 91 H Pulse Rate [ From Monitor] Pulse Rate [ Left Dorsalis Pedis] Pulse Rate [ Left Radial] Pulse Rate [ Right Dorsalis Pedis] Pulse Rate [ Right Radial] Respiratory 18 25 H 26 H Rate Blood Pressure 111/62 111/62 100/52 O2 Sat by Pulse 92 98 95 Oximetry 04/12/17 04/12/17 04/12/17 00:00 00:25 00:38 Temperature 98.9 F Pulse Rate 88 93 H 90 Pulse Rate [ 99 H From Monitor] Pulse Rate [ 96 H Left Dorsalis Pedis] Pulse Rate [ 101 H Left Radial] Pulse Rate [ 99 H Right Dorsalis Pedis] Pulse Rate [ 100 H Right Radial] Respiratory 22 Rate Blood Pressure 100/55 100/55 100/52 O2 Sat by Pulse 97 99 Oximetry 04/12/17 04/12/17 04/12/17 01:00 02:00 03:00 Temperature Pulse Rate 87 86 91 H Pulse Rate [ From Monitor] Pulse Rate [ Left Dorsalis Pedis] Pulse Rate [ Left Radial] Pulse Rate [ Right Dorsalis Pedis] Pulse Rate [ Right Radial] Respiratory 25 H 22 13 Rate Blood Pressure 96/51 99/55 103/64 O2 Sat by Pulse 94 94 94 Oximetry 04/12/17 04/12/17 04/12/17 04:00 04:50 05:00 Temperature 98.2 F Pulse Rate 88 88 86 Pulse Rate [ 99 H From Monitor] Pulse Rate [ 102 H Left Dorsalis Pedis] Pulse Rate [ 100 H Left Radial] Pulse Rate [ 100 H Right Dorsalis Pedis] Pulse Rate [ 100 H Right Radial] Respiratory 25 H 25 H Rate Blood Pressure 97/55 97/55 94/55 O2 Sat by Pulse 96 99 93 Oximetry 04/12/17 04/12/17 04/12/17 06:00 06:23 07:00 Temperature Pulse Rate 89 89 91 H Pulse Rate [ From Monitor] Pulse Rate [ Left Dorsalis Pedis] Pulse Rate [ Left Radial] Pulse Rate [ Right Dorsalis Pedis] Pulse Rate [ Right Radial] Respiratory 14 11 L Rate Blood Pressure 101/61 101/61 103/62 O2 Sat by Pulse 94 Oximetry 04/12/17 04/12/17 08:00 08:52 Temperature Pulse Rate 91 H 97 H Pulse Rate [ From Monitor] Pulse Rate [ Left Dorsalis Pedis] Pulse Rate [ Left Radial] Pulse Rate [ Right Dorsalis Pedis] Pulse Rate [ Right Radial] Respiratory 29 H Rate Blood Pressure 105/72 105/72 O2 Sat by Pulse 98 Oximetry Constitutional: comatose Eyes: injected, other (pinpoint pupils equal and non reactive) ENT: other (orally intubated, ) Neck: supple, no JVD Effort: normal Ascultation: Bilateral: clear, diminished breath sounds ( ) Percussion: Bilateral: not dull Cardiovascular: regular rate and rhythm Gastrointestinal: hypoactive bowel sounds, other (mild distention) Integumentary: other (multiple tattoos) Extremities: no cyanosis Neurologic: unable to assess, other (no posturing on physical examination and stimulation,irregular breathing) CBC and BMP: 04/10/17 04:16 04/10/17 04:16 ABG, PT/INR, D-dimer: ABG POC ABG pH 7.517 (7.35-7.45) H 04/07/17 11:45 POC ABG pCO2 32.1 (35-45) L 04/07/17 11:45 POC ABG pO2 93 (80-105) 04/07/17 11:45 POC ABG HCO3 26.0 04/07/17 11:45 POC ABG Total CO2 27 04/07/17 11:45 POC ABG O2 Sat 98 04/07/17 11:45 PT/INR, D-dimer PT 14.9 Sec. (12.2-14.9) 04/10/17 04:16 INR 1.11 (0.87-1.13) 04/10/17 04:16 Abnormal lab findings: Abnormal Labs 03/29/17 03/29/17 03/29/17 11:35 11:35 11:40 WBC Hgb MCV 98 H MCH 33 H Plt Count Lymph % (Auto) Lymph # Seg Neutrophils % Lymphocytes % (Manual) Monocytes % (Manual) 9.0 H Nucleated RBC % 1.0 H Seg Neutrophils # Seg Neutrophils # Man Monocytes # (Manual) 0.9 H PT 15.8 H INR 1.20 H Activated Clotting Time POC ABG pH POC ABG pCO2 POC ABG pO2 Sodium Potassium 2.7 L* Chloride 95.3 L Carbon Dioxide 17 L BUN Creatinine Glucose 435 H POC Glucose Calcium Magnesium AST ALT Alkaline Phosphatase Total Creatine Kinase CK-MB (CK-2) CK-MB (CK-2) Rel Index Troponin T C-Reactive Protein Total Protein 6.1 L Albumin 3.5 L Triglycerides Ur Specific [place] 03/29/17 03/29/17 03/29/17 12:34 13:10 13:25 WBC Hgb MCV MCH Plt Count Lymph % (Auto) Lymph # Seg Neutrophils % Lymphocytes % (Manual) Monocytes % (Manual) Nucleated RBC % Seg Neutrophils # Seg Neutrophils # Man Monocytes # (Manual) PT INR Activated Clotting Time 142 H 169 H 175 H POC ABG pH POC ABG pCO2 POC ABG pO2 Sodium Potassium Chloride Carbon Dioxide BUN Creatinine Glucose POC Glucose Calcium Magnesium AST ALT Alkaline Phosphatase Total Creatine Kinase CK-MB (CK-2) CK-MB (CK-2) Rel Index Troponin T C-Reactive Protein Total Protein Albumin Triglycerides Ur Specific [place] 03/29/17 03/29/17 03/29/17 14:50 15:18 19:52 WBC Hgb MCV MCH Plt Count Lymph % (Auto) Lymph # Seg Neutrophils % Lymphocytes % (Manual) Monocytes % (Manual) Nucleated RBC % Seg Neutrophils # Seg Neutrophils # Man Monocytes # (Manual) PT INR Activated Clotting Time 175 H POC ABG pH 7.293 L POC ABG pCO2 POC ABG pO2 602 H Sodium Potassium Chloride Carbon Dioxide BUN Creatinine Glucose POC Glucose Calcium Magnesium AST ALT Alkaline Phosphatase Total Creatine Kinase 7263 H CK-MB (CK-2) > 300.0 H CK-MB (CK-2) Rel Index 4.1 H Troponin T 8.080 H* D C-Reactive Protein Total Protein Albumin Triglycerides 195 H Ur Specific [place] 03/30/17 03/30/17 03/30/17 03:50 03:50 06:19 WBC 19.5 H Hgb MCV MCH Plt Count Lymph % (Auto) Lymph # Seg Neutrophils % Lymphocytes % (Manual) 7.0 L Monocytes % (Manual) Nucleated RBC % Seg Neutrophils # Seg Neutrophils # Man 12.7 H Monocytes # (Manual) 1.4 H PT INR Activated Clotting Time POC ABG pH POC ABG pCO2 28.2 L POC ABG pO2 108 H Sodium Potassium Chloride 108.9 H Carbon Dioxide 15 L BUN 25 H Creatinine Glucose 158 H POC Glucose Calcium 8.1 L Magnesium AST ALT Alkaline Phosphatase Total Creatine Kinase 7963 H CK-MB (CK-2) > 300.0 H CK-MB (CK-2) Rel Index Troponin T 6.850 H* C-Reactive Protein Total Protein Albumin Triglycerides Ur Specific [place] 03/30/17 03/30/17 03/31/17 09:45 16:04 02:19 WBC Hgb MCV MCH Plt Count Lymph % (Auto) Lymph # Seg Neutrophils % Lymphocytes % (Manual) Monocytes % (Manual) Nucleated RBC % Seg Neutrophils # Seg Neutrophils # Man Monocytes # (Manual) PT INR Activated Clotting Time POC ABG pH POC ABG pCO2 POC ABG pO2 Sodium Potassium Chloride Carbon Dioxide BUN Creatinine Glucose POC Glucose 137 H Calcium Magnesium AST ALT Alkaline Phosphatase Total Creatine Kinase CK-MB (CK-2) CK-MB (CK-2) Rel Index Troponin T C-Reactive Protein 21.80 H Total Protein Albumin Triglycerides Ur Specific [place] 1.031 H 03/31/17 03/31/17 03/31/17 03:57 06:54 09:22 WBC Hgb MCV MCH Plt Count Lymph % (Auto) Lymph # Seg Neutrophils % Lymphocytes % (Manual) Monocytes % (Manual) Nucleated RBC % Seg Neutrophils # Seg Neutrophils # Man Monocytes # (Manual) PT INR Activated Clotting Time POC ABG pH 7.475 H POC ABG pCO2 25.4 L POC ABG pO2 62 L Sodium Potassium Chloride Carbon Dioxide 19 L BUN 22 H Creatinine 0.6 L Glucose 148 H POC Glucose 143 H Calcium 8.3 L Magnesium AST ALT Alkaline Phosphatase Total Creatine Kinase CK-MB (CK-2) CK-MB (CK-2) Rel Index Troponin T C-Reactive Protein Total Protein Albumin Triglycerides Ur Specific [place] 03/31/17 03/31/17 03/31/17 11:40 17:47 23:38 WBC Hgb MCV MCH Plt Count Lymph % (Auto) Lymph # Seg Neutrophils % Lymphocytes % (Manual) Monocytes % (Manual) Nucleated RBC % Seg Neutrophils # Seg Neutrophils # Man Monocytes # (Manual) PT INR Activated Clotting Time POC ABG pH POC ABG pCO2 POC ABG pO2 Sodium Potassium Chloride Carbon Dioxide BUN Creatinine Glucose POC Glucose 127 H 137 H 148 H Calcium Magnesium AST ALT Alkaline Phosphatase Total Creatine Kinase CK-MB (CK-2) CK-MB (CK-2) Rel Index Troponin T C-Reactive Protein Total Protein Albumin Triglycerides Ur Specific [place] 04/01/17 04/01/17 04/01/17 04:29 05:01 11:54 WBC Hgb MCV MCH Plt Count Lymph % (Auto) Lymph # Seg Neutrophils % Lymphocytes % (Manual) Monocytes % (Manual) Nucleated RBC % Seg Neutrophils # Seg Neutrophils # Man Monocytes # (Manual) PT INR Activated Clotting Time POC ABG pH 7.513 H POC ABG pCO2 22.1 L POC ABG pO2 64 L Sodium Potassium Chloride Carbon Dioxide BUN Creatinine Glucose POC Glucose 121 H Calcium Magnesium AST ALT Alkaline Phosphatase Total Creatine Kinase CK-MB (CK-2) CK-MB (CK-2) Rel Index Troponin T C-Reactive Protein Total Protein Albumin Triglycerides 151 H Ur Specific [place] 04/01/17 04/02/17 04/02/17 18:17 00:11 04:52 WBC Hgb MCV MCH Plt Count Lymph % (Auto) Lymph # Seg Neutrophils % Lymphocytes % (Manual) Monocytes % (Manual) Nucleated RBC % Seg Neutrophils # Seg Neutrophils # Man Monocytes # (Manual) PT INR Activated Clotting Time POC ABG pH 7.524 H POC ABG pCO2 25.5 L POC ABG pO2 66 L Sodium Potassium Chloride Carbon Dioxide BUN Creatinine Glucose POC Glucose 117 H 122 H Calcium Magnesium AST ALT Alkaline Phosphatase Total Creatine Kinase CK-MB (CK-2) CK-MB (CK-2) Rel Index Troponin T C-Reactive Protein Total Protein Albumin Triglycerides Ur Specific [place] 04/02/17 04/02/17 04/02/17 05:18 10:41 12:19 WBC Hgb MCV MCH Plt Count Lymph % (Auto) Lymph # Seg Neutrophils % Lymphocytes % (Manual) Monocytes % (Manual) Nucleated RBC % Seg Neutrophils # Seg Neutrophils # Man Monocytes # (Manual) PT INR Activated Clotting Time POC ABG pH 7.534 H POC ABG pCO2 27.4 L POC ABG pO2 Sodium Potassium Chloride Carbon Dioxide BUN Creatinine Glucose POC Glucose 132 H 129 H Calcium Magnesium AST ALT Alkaline Phosphatase Total Creatine Kinase CK-MB (CK-2) CK-MB (CK-2) Rel Index Troponin T C-Reactive Protein Total Protein Albumin Triglycerides Ur Specific [place] 04/02/17 04/03/17 04/03/17 18:05 00:08 05:09 WBC Hgb MCV MCH Plt Count Lymph % (Auto) Lymph # Seg Neutrophils % Lymphocytes % (Manual) Monocytes % (Manual) Nucleated RBC % Seg Neutrophils # Seg Neutrophils # Man Monocytes # (Manual) PT INR Activated Clotting Time POC ABG pH 7.455 H POC ABG pCO2 33.2 L POC ABG pO2 120 H Sodium Potassium Chloride Carbon Dioxide BUN Creatinine Glucose POC Glucose 136 H 128 H Calcium Magnesium AST ALT Alkaline Phosphatase Total Creatine Kinase CK-MB (CK-2) CK-MB (CK-2) Rel Index Troponin T C-Reactive Protein Total Protein Albumin Triglycerides Ur Specific [place] 04/03/17 04/03/17 04/03/17 06:32 11:54 12:16 WBC 11.9 H Hgb MCV MCH Plt Count 125 L Lymph % (Auto) 4.8 L Lymph # 0.6 L Seg Neutrophils % 86.7 H Lymphocytes % (Manual) Monocytes % (Manual) Nucleated RBC % Seg Neutrophils # 10.3 H Seg Neutrophils # Man Monocytes # (Manual) PT INR Activated Clotting Time POC ABG pH POC ABG pCO2 POC ABG pO2 Sodium Potassium Chloride Carbon Dioxide BUN Creatinine Glucose POC Glucose 138 H 143 H Calcium Magnesium AST ALT Alkaline Phosphatase Total Creatine Kinase CK-MB (CK-2) CK-MB (CK-2) Rel Index Troponin T C-Reactive Protein Total Protein Albumin Triglycerides Ur Specific [place] 04/03/17 04/03/17 04/04/17 17:33 23:59 04:34 WBC Hgb MCV MCH Plt Count Lymph % (Auto) Lymph # Seg Neutrophils % Lymphocytes % (Manual) Monocytes % (Manual) Nucleated RBC % Seg Neutrophils # Seg Neutrophils # Man Monocytes # (Manual) PT INR Activated Clotting Time POC ABG pH 7.457 H POC ABG pCO2 29.8 L POC ABG pO2 76 L Sodium Potassium Chloride Carbon Dioxide BUN Creatinine Glucose POC Glucose 130 H 155 H Calcium Magnesium AST ALT Alkaline Phosphatase Total Creatine Kinase CK-MB (CK-2) CK-MB (CK-2) Rel Index Troponin T C-Reactive Protein Total Protein Albumin Triglycerides Ur Specific [place] 04/04/17 04/04/17 04/04/17 05:27 12:22 18:18 WBC Hgb MCV MCH Plt Count Lymph % (Auto) Lymph # Seg Neutrophils % Lymphocytes % (Manual) Monocytes % (Manual) Nucleated RBC % Seg Neutrophils # Seg Neutrophils # Man Monocytes # (Manual) PT INR Activated Clotting Time POC ABG pH POC ABG pCO2 POC ABG pO2 Sodium Potassium Chloride Carbon Dioxide BUN Creatinine Glucose POC Glucose 164 H 146 H 130 H Calcium Magnesium AST ALT Alkaline Phosphatase Total Creatine Kinase CK-MB (CK-2) CK-MB (CK-2) Rel Index Troponin T C-Reactive Protein Total Protein Albumin Triglycerides Ur Specific [place] 04/05/17 04/05/17 04/05/17 04:43 05:28 11:36 WBC Hgb MCV MCH Plt Count Lymph % (Auto) Lymph # Seg Neutrophils % Lymphocytes % (Manual) Monocytes % (Manual) Nucleated RBC % Seg Neutrophils # Seg Neutrophils # Man Monocytes # (Manual) PT INR Activated Clotting Time POC ABG pH 7.479 H POC ABG pCO2 33.5 L POC ABG pO2 76 L Sodium Potassium Chloride Carbon Dioxide BUN Creatinine Glucose POC Glucose 145 H 136 H Calcium Magnesium AST ALT Alkaline Phosphatase Total Creatine Kinase CK-MB (CK-2) CK-MB (CK-2) Rel Index Troponin T C-Reactive Protein Total Protein Albumin Triglycerides Ur Specific [place] 04/05/17 04/06/17 04/06/17 17:58 00:16 05:26 WBC Hgb MCV MCH Plt Count Lymph % (Auto) Lymph # Seg Neutrophils % Lymphocytes % (Manual) Monocytes % (Manual) Nucleated RBC % Seg Neutrophils # Seg Neutrophils # Man Monocytes # (Manual) PT INR Activated Clotting Time POC ABG pH POC ABG pCO2 POC ABG pO2 Sodium Potassium Chloride Carbon Dioxide BUN Creatinine Glucose POC Glucose 130 H 159 H 146 H Calcium Magnesium AST ALT Alkaline Phosphatase Total Creatine Kinase CK-MB (CK-2) CK-MB (CK-2) Rel Index Troponin T C-Reactive Protein Total Protein Albumin Triglycerides Ur Specific [place] 04/06/17 04/06/17 04/07/17 13:11 16:54 11:45 WBC Hgb MCV MCH Plt Count Lymph % (Auto) Lymph # Seg Neutrophils % Lymphocytes % (Manual) Monocytes % (Manual) Nucleated RBC % Seg Neutrophils # Seg Neutrophils # Man Monocytes # (Manual) PT INR Activated Clotting Time POC ABG pH 7.517 H POC ABG pCO2 32.1 L POC ABG pO2 Sodium Potassium Chloride Carbon Dioxide BUN Creatinine Glucose POC Glucose 132 H 123 H Calcium Magnesium AST ALT Alkaline Phosphatase Total Creatine Kinase CK-MB (CK-2) CK-MB (CK-2) Rel Index Troponin T C-Reactive Protein Total Protein Albumin Triglycerides Ur Specific [place] 04/07/17 04/07/17 04/07/17 12:51 17:40 23:55 WBC Hgb MCV MCH Plt Count Lymph % (Auto) Lymph # Seg Neutrophils % Lymphocytes % (Manual) Monocytes % (Manual) Nucleated RBC % Seg Neutrophils # Seg Neutrophils # Man Monocytes # (Manual) PT INR Activated Clotting Time POC ABG pH POC ABG pCO2 POC ABG pO2 Sodium Potassium Chloride Carbon Dioxide BUN Creatinine Glucose POC Glucose 138 H 154 H 143 H Calcium Magnesium AST ALT Alkaline Phosphatase Total Creatine Kinase CK-MB (CK-2) CK-MB (CK-2) Rel Index Troponin T C-Reactive Protein Total Protein Albumin Triglycerides Ur Specific [place] 04/08/17 04/08/17 04/08/17 05:27 11:14 17:44 WBC Hgb MCV MCH Plt Count Lymph % (Auto) Lymph # Seg Neutrophils % Lymphocytes % (Manual) Monocytes % (Manual) Nucleated RBC % Seg Neutrophils # Seg Neutrophils # Man Monocytes # (Manual) PT INR Activated Clotting Time POC ABG pH POC ABG pCO2 POC ABG pO2 Sodium Potassium Chloride Carbon Dioxide BUN Creatinine Glucose POC Glucose 142 H 153 H 129 H Calcium Magnesium AST ALT Alkaline Phosphatase Total Creatine Kinase CK-MB (CK-2) CK-MB (CK-2) Rel Index Troponin T C-Reactive Protein Total Protein Albumin Triglycerides Ur Specific [place] 04/09/17 04/09/17 04/09/17 08:20 11:21 17:37 WBC Hgb MCV MCH Plt Count Lymph % (Auto) Lymph # Seg Neutrophils % Lymphocytes % (Manual) Monocytes % (Manual) Nucleated RBC % Seg Neutrophils # Seg Neutrophils # Man Monocytes # (Manual) PT INR Activated Clotting Time POC ABG pH POC ABG pCO2 POC ABG pO2 Sodium 147 H Potassium Chloride 108.8 H Carbon Dioxide BUN 39 H Creatinine 0.5 L Glucose 138 H POC Glucose 152 H 109 H Calcium Magnesium AST ALT Alkaline Phosphatase Total Creatine Kinase CK-MB (CK-2) CK-MB (CK-2) Rel Index Troponin T C-Reactive Protein Total Protein Albumin Triglycerides Ur Specific [place] 04/10/17 04/10/17 04/10/17 00:13 04:16 04:16 WBC Hgb 11.5 L MCV 96 H MCH Plt Count 103 L Lymph % (Auto) 11.1 L Lymph # Seg Neutrophils % 81.5 H Lymphocytes % (Manual) Monocytes % (Manual) Nucleated RBC % Seg Neutrophils # 8.8 H Seg Neutrophils # Man Monocytes # (Manual) PT INR Activated Clotting Time POC ABG pH POC ABG pCO2 POC ABG pO2 Sodium 148 H Potassium Chloride 109.0 H Carbon Dioxide BUN 36 H Creatinine 0.5 L Glucose 131 H POC Glucose 127 H Calcium 8.1 L Magnesium 2.40 H AST 206 H ALT 228 H Alkaline Phosphatase 178 H Total Creatine Kinase CK-MB (CK-2) CK-MB (CK-2) Rel Index Troponin T C-Reactive Protein Total Protein Albumin 2.8 L Triglycerides Ur Specific [place] 04/10/17 04/10/17 04/10/17 06:01 11:57 18:27 WBC Hgb MCV MCH Plt Count Lymph % (Auto) Lymph # Seg Neutrophils % Lymphocytes % (Manual) Monocytes % (Manual) Nucleated RBC % Seg Neutrophils # Seg Neutrophils # Man Monocytes # (Manual) PT INR Activated Clotting Time POC ABG pH POC ABG pCO2 POC ABG pO2 Sodium Potassium Chloride Carbon Dioxide BUN Creatinine Glucose POC Glucose 108 H 154 H 130 H Calcium Magnesium AST ALT Alkaline Phosphatase Total Creatine Kinase CK-MB (CK-2) CK-MB (CK-2) Rel Index Troponin T C-Reactive Protein Total Protein Albumin Triglycerides Ur Specific [place] 04/11/17 04/11/17 04/12/17 12:25 17:10 00:22 WBC Hgb MCV MCH Plt Count Lymph % (Auto) Lymph # Seg Neutrophils % Lymphocytes % (Manual) Monocytes % (Manual) Nucleated RBC % Seg Neutrophils # Seg Neutrophils # Man Monocytes # (Manual) PT INR Activated Clotting Time POC ABG pH POC ABG pCO2 POC ABG pO2 Sodium Potassium Chloride Carbon Dioxide BUN Creatinine Glucose POC Glucose 107 H 129 H 128 H Calcium Magnesium AST ALT Alkaline Phosphatase Total Creatine Kinase CK-MB (CK-2) CK-MB (CK-2) Rel Index Troponin T C-Reactive Protein Total Protein Albumin Triglycerides Ur Specific [place] 04/12/17 05:00 WBC Hgb MCV MCH Plt Count Lymph % (Auto) Lymph # Seg Neutrophils % Lymphocytes % (Manual) Monocytes % (Manual) Nucleated RBC % Seg Neutrophils # Seg Neutrophils # Man Monocytes # (Manual) PT INR Activated Clotting Time POC ABG pH POC ABG pCO2 POC ABG pO2 Sodium Potassium Chloride Carbon Dioxide BUN Creatinine Glucose POC Glucose Calcium Magnesium AST 158 H ALT 184 H Alkaline Phosphatase 170 H Total Creatine Kinase CK-MB (CK-2) CK-MB (CK-2) Rel Index Troponin T C-Reactive Protein Total Protein Albumin 2.8 L Triglycerides Ur Specific [place]
--- NOTE | 2017-04-12 09:35 | Progress Note ---
Assessment and Plan Assessment and plan: 46 YO Male with No PMH presents to ED for evaluation. Pt is unresponsive and unable to provide history. Pt history taken from ED staff and EMS. Pt was at work and suddenly passed out around 1050 hrs-which was witnessed by patients coworkers. EMS notified, and upon arrival the patient was found to have V Fib. Pt treated IAW ACLS protocol. The patient was given 3 defibrillations, 2 rounds of epinephrine, Narcan, and a half amp of sodium bicarbonate. Pt found to be in respiratory distress and was intubated and placed on vent support. Cardiology team notified, and patient was taken urgently to outside laborer, and admitted to ICU. --Acute hypoxic respiratory failure; vent dependent Plavix now on hold, Trach and Peg scheduled for Monday, pulmonary surgery following --Status post cardiac arrest: Status post CPR, unresponsive, supportive care --Anoxic brain injury; patient has been off sedation and still obtunded and nonresponsive. Poor prognosis, family aware, trach and PEG on Monday --Acute anterior STEMI ; status post PCI Cardiology following , continue current cardiac medications --Hypertension ; closely monitor , continue current antihypertensives and when necessary medications --MRSA pneumonia /aspiration pneumonia contact isolation, ID following completed zyvox on 04/10 --Cardiogenic shock; resolved Currently off pressors, closely monitor --Hypokalemia /hypernatremia Corrected --DC planning. Case management Possible SNF versus rehabilitation unable to go to [facility] as has no insurance medicare disability application in process of being filled out by family family is hoping to take him home on vent/peg tube and have his sister care for him Consults and recommendations noted and appreciated Critical care time 32 minutes The high probability of a clinically significant, sudden or life threatening deterioration of the [Pulmonary, cardiac, renal] system(s) required my full and direct attention, intervention and personal management. The aggregate critical care time was [32] minutes. This time is in addition to time spent performing reported procedures but includes the following: [x] Data Review and interpretation [x] Patient assessment and monitoring of vital signs [x] Documentation [x] Medication orders and management History Interval history: Patient seen and examined Medical records reviewed Vent dependent, tracheostomy and PEG placement on Monday Antiplatelets were held for the procedure Hospitalist Physical - Constitutional Vitals: Temp Pulse Resp BP Pulse Ox 98.2 F 97 H 29 H 105/72 98 01/17/18 04:00 04/12/17 08:52 04/12/17 08:00 04/12/17 08:52 04/12/17 08:52 General appearance: Present: no acute distress, well-nourished, other ( intubated on ventilatory support) - Neck Neck: Present: supple - Respiratory Respiratory effort: labored Respiratory: bilateral: diminished, rhonchi, negative: rales, wheezing - Cardiovascular Rhythm: regular Heart Sounds: Present: S1 & S2 - Extremities Extremities: no ischemia, No edema - Abdominal General gastrointestinal: soft, non-tender, non-distended, normal bowel sounds - Integumentary Integumentary: Present: clear, warm - Psychiatric Psychiatric: other (unresponsive) - Neurologic Neurologic: other (unresponsive) Results - Labs CBC & Chem 7: 04/10/17 04:16 04/10/17 04:16 Labs: Laboratory Last Values WBC 10.8 K/mm3 (4.5-11.0) 04/10/17 04:16 RBC 3.70 M/mm3 (3.65-5.03) 04/10/17 04:16 Hgb 11.5 gm/dl (11.8-15.2) L 04/10/17 04:16 Hct 35.5 % (35.5-45.6) 04/10/17 04:16 MCV 96 fl (84-94) H 04/10/17 04:16 MCH 31 pg (28-32) 04/10/17 04:16 MCHC 32 % (32-34) 04/10/17 04:16 RDW 14.4 % (13.2-15.2) 04/10/17 04:16 Plt Count 103 K/mm3 (140-440) L 04/10/17 04:16 Lymph % (Auto) 11.1 % (13.4-35.0) L 04/10/17 04:16 [place] % (Auto) 5.1 % (0.0-7.3) 04/10/17 04:16 Eos % (Auto) 2.0 % (0.0-4.3) 04/10/17 04:16 Baso % (Auto) 0.3 % (0.0-1.8) 04/10/17 04:16 Lymph # 1.2 K/mm3 (1.2-5.4) 04/10/17 04:16 [place] # 0.5 K/mm3 (0.0-0.8) 04/10/17 04:16 Eos # 0.2 K/mm3 (0.0-0.4) 04/10/17 04:16 Baso # 0.0 K/mm3 (0.0-0.1) 04/10/17 04:16 Add Manual Diff Complete 03/30/17 03:50 Total Counted 100 03/30/17 03:50 Seg Neutrophils % 81.5 % (40.0-70.0) H 04/10/17 04:16 Seg Neuts % (Manual) 65.0 % (40.0-70.0) 03/30/17 03:50 Band Neutrophils % 17.0 % 03/30/17 03:50 Lymphocytes % (Manual) 7.0 % (13.4-35.0) L 03/30/17 03:50 Reactive Lymphs % (Man) 0 % 03/30/17 03:50 Monocytes % (Manual) 7.0 % (0.0-7.3) 03/30/17 03:50 Eosinophils % (Manual) 0 % (0.0-4.3) 03/30/17 03:50 Basophils % (Manual) 0 % (0.0-1.8) 03/30/17 03:50 Metamyelocytes % 4.0 % 03/30/17 03:50 Myelocytes % 0 % 03/30/17 03:50 Promyelocytes % 0 % 03/30/17 03:50 Blast Cells % 0 % 03/30/17 03:50 Nucleated RBC % Not Reportable 03/30/17 03:50 Seg Neutrophils # 8.8 K/mm3 (1.8-7.7) H 04/10/17 04:16 Seg Neutrophils # Man 12.7 K/mm3 (1.8-7.7) H 03/30/17 03:50 Band Neutrophils # 3.3 K/mm3 03/30/17 03:50 Lymphocytes # (Manual) 1.4 K/mm3 (1.2-5.4) 03/30/17 03:50 Abs React Lymphs (Man) 0.0 K/mm3 03/30/17 03:50 Monocytes # (Manual) 1.4 K/mm3 (0.0-0.8) H 03/30/17 03:50 Eosinophils # (Manual) 0.0 K/mm3 (0.0-0.4) 03/30/17 03:50 Basophils # (Manual) 0.0 K/mm3 (0.0-0.1) 03/30/17 03:50 Metamyelocytes # 0.8 K/mm3 03/30/17 03:50 Myelocytes # 0.0 K/mm3 03/30/17 03:50 Promyelocytes # 0.0 K/mm3 03/30/17 03:50 Blast Cells # 0.0 K/mm3 03/30/17 03:50 WBC Morphology Not Reportable 03/30/17 03:50 Hypersegmented Neuts Not Reportable 03/30/17 03:50 Hyposegmented Neuts Not Reportable 03/30/17 03:50 Hypogranular Neuts Not Reportable 03/30/17 03:50 Smudge Cells Not Reportable 03/30/17 03:50 Toxic Granulation Not Reportable 03/30/17 03:50 Toxic Vacuolation Not Reportable 03/30/17 03:50 Dohle Bodies Not Reportable 03/30/17 03:50 Pelger-Huet Anomaly Not Reportable 03/30/17 03:50 Sherry Rods Not Reportable 03/30/17 03:50 Platelet Estimate Appears normal 03/30/17 03:50 Clumped Platelets Not Reportable 03/30/17 03:50 Plt Clumps, EDTA Not Reportable 03/30/17 03:50 Large Platelets Not Reportable 03/30/17 03:50 Giant Platelets Not Reportable 03/30/17 03:50 Platelet Satelliting Not Reportable 03/30/17 03:50 Plt Morphology Comment Not Reportable 03/30/17 03:50 RBC Morphology Not Reportable 03/30/17 03:50 Dimorphic RBCs Not Reportable 03/30/17 03:50 Polychromasia Not Reportable 03/30/17 03:50 Hypochromasia Not Reportable 03/30/17 03:50 Poikilocytosis Not Reportable 03/30/17 03:50 Anisocytosis Few 03/30/17 03:50 Microcytosis Not Reportable 03/30/17 03:50 Macrocytosis Not Reportable 03/30/17 03:50 Spherocytes Not Reportable 03/30/17 03:50 Pappenheimer Bodies Not Reportable 03/30/17 03:50 Sickle Cells Not Reportable 03/30/17 03:50 Target Cells Not Reportable 03/30/17 03:50 Tear Drop Cells Not Reportable 03/30/17 03:50 Ovalocytes Not Reportable 03/30/17 03:50 Helmet Cells Not Reportable 03/30/17 03:50 [place] Bodies Not Reportable 03/30/17 03:50 [place] Rings Not Reportable 03/30/17 03:50 Nusrat Cells Not Reportable 03/30/17 03:50 Bite Cells Not Reportable 03/30/17 03:50 Crenated Cell Not Reportable 03/30/17 03:50 Elliptocytes Not Reportable 03/30/17 03:50 Acanthocytes (Spur) Not Reportable 03/30/17 03:50 Rouleaux Not Reportable 03/30/17 03:50 Hemoglobin C Crystals Not Reportable 03/30/17 03:50 Schistocytes Not Reportable 03/30/17 03:50 Malaria parasites Not Reportable 03/30/17 03:50 Jermaine Bodies Not Reportable 03/30/17 03:50 Hem Pathologist Commnt No 03/30/17 03:50 PT 14.9 Sec. (12.2-14.9) 04/10/17 04:16 INR 1.11 (0.87-1.13) 04/10/17 04:16 APTT 27.8 Sec. (24.2-36.6) 04/10/17 04:16 Activated Clotting Time 92 (74-137) 03/29/17 17:47 POC ABG pH 7.517 (7.35-7.45) H 04/07/17 11:45 POC ABG pCO2 32.1 (35-45) L 04/07/17 11:45 POC ABG pO2 93 (80-105) 04/07/17 11:45 POC ABG HCO3 26.0 04/07/17 11:45 POC ABG Total CO2 27 04/07/17 11:45 POC ABG O2 Sat 98 04/07/17 11:45 POC ABG Base Excess 3 04/07/17 11:45 FiO2 35 % 04/07/17 11:45 Sodium 148 mmol/L (137-145) H 04/10/17 04:16 Potassium 3.9 mmol/L (3.6-5.0) 04/10/17 04:16 Chloride 109.0 mmol/L (98-107) H 04/10/17 04:16 Carbon Dioxide 23 mmol/L (22-30) 04/10/17 04:16 Anion Gap 20 mmol/L 04/10/17 04:16 BUN 36 mg/dL (9-20) H 04/10/17 04:16 Creatinine 0.5 mg/dL (0.8-1.5) L 04/10/17 04:16 Estimated GFR > 60 ml/min 04/10/17 04:16 BUN/Creatinine Ratio 72 % 04/10/17 04:16 Glucose 131 mg/dL (75-100) H 04/10/17 04:16 POC Glucose 128 (70-105) H 04/12/17 00:22 Calcium 8.1 mg/dL (8.4-10.2) L 04/10/17 04:16 Phosphorus 2.90 mg/dL (2.5-4.5) 04/10/17 04:16 Magnesium 2.40 mg/dL (1.7-2.3) H 04/10/17 04:16 Total Bilirubin 0.70 mg/dL (0.1-1.2) 04/12/17 05:00 Direct Bilirubin 0.2 mg/dL (0-0.2) 04/12/17 05:00 Indirect Bilirubin 0.5 mg/dL 04/12/17 05:00 AST 158 units/L (5-40) H 04/12/17 05:00 ALT 184 units/L (7-56) H 04/12/17 05:00 Alkaline Phosphatase 170 units/L (35-129) H 04/12/17 05:00 Total Creatine Kinase 7963 units/L (55-170) H 03/30/17 03:50 CK-MB (CK-2) > 300.0 ng/mL (0.0-4.0) H 03/30/17 03:50 CK-MB (CK-2) Rel Index 3.7 (0-4) 03/30/17 03:50 Troponin T 6.850 ng/mL (0.00-0.029) H* 03/30/17 03:50 C-Reactive Protein 21.80 mg/dL (0.00-1.30) H 03/30/17 16:04 Total Protein 6.6 g/dL (6.3-8.2) 04/12/17 05:00 Albumin 2.8 g/dL (3.9-5) L 04/12/17 05:00 Albumin/Globulin Ratio 0.7 % 04/12/17 05:00 Triglycerides 151 mg/dL (2-149) H 04/01/17 04:29 Cholesterol 164 mg/dL (50-199) 03/29/17 19:52 LDL Cholesterol Direct 81 mg/dL (50-130) 03/29/17 19:52 HDL Cholesterol 44 mg/dL (40-59) 03/29/17 19:52 Cholesterol/HDL Ratio 3.72 % 03/29/17 19:52 Urine Color Yellow (Yellow) 03/30/17 09:45 Urine Turbidity Turbid (Clear) 03/30/17 09:45 Urine pH 5.0 (5.0-7.0) 03/30/17 09:45 Ur Specific [place] 1.031 (1.003-1.030) H 03/30/17 09:45 Urine Protein 30 mg/dl mg/dL (Negative) 03/30/17 09:45 Urine Glucose (UA) Neg mg/dL (Negative) 03/30/17 09:45 Urine Ketones 20 mg/dL (Negative) 03/30/17 09:45 Urine Blood Mod (Negative) 03/30/17 09:45 Urine Nitrite Neg (Negative) 03/30/17 09:45 Urine Bilirubin Neg (Negative) 03/30/17 09:45 Urine Urobilinogen < 2.0 mg/dL (<2.0) 03/30/17 09:45 Ur Leukocyte Esterase Tr (Negative) 03/30/17 09:45 Urine WBC (Auto) 1.0 /HPF (0.0-6.0) 03/30/17 09:45 Urine RBC (Auto) 14.0 /HPF (0.0-6.0) 03/30/17 09:45 Amorphous Crystals 1+ 03/30/17 09:45 Urine Opiates Screen Presumptive negative 03/30/17 09:45 Urine Methadone Screen Presumptive negative 03/30/17 09:45 Ur Barbiturates Screen Presumptive negative 03/30/17 09:45 Ur Phencyclidine Scrn Presumptive negative 03/30/17 09:45 Ur Amphetamines Screen Presumptive positive 03/30/17 09:45 U Benzodiazepines Scrn Presumptive positive 03/30/17 09:45 Urine Cocaine Screen Presumptive negative 03/30/17 09:45 U Marijuana (THC) Screen Presumptive negative 03/30/17 09:45 Drugs of Abuse Note Disclamer 03/30/17 09:45 Blood Type O POSITIVE 03/29/17 11:35 Antibody Screen Negative 03/29/17 11:35
[2017-04-12] MEDS: ZESTRIL PO SCH (11:21)
[2017-04-12] MEDS: HEPARIN SUB-Q SCH ×2 (11:22→21:41)
[2017-04-12] MEDS: ASPIRIN PO SCH (11:22)
[2017-04-12] MEDS: PROTONIX FEEDTUBE SCH (11:22)
--- NOTE | 2017-04-12 14:23 | Progress Note ---
Assessment and Plan Out of hospital VF arrest Acute anterior STEMI s/p PCI of the LAD using BM stents deployed. reduced LVEF 30-35% by echocardiogram. DAPT on hold awaiting for trach and peg Respiratory failure intubated on the vent Anoxic brain injury Pneumonia: MRSA Elevated Transaminitis Amiodarone and statins discontinued Plan: Conservative cardiac management Subjective Date of service: 04/12/17 Principal diagnosis: septic shock Interval history: No interval changes cardiac harrison Objective Vital Signs Temp Pulse Pulse Pulse Pulse Pulse Pulse 04/12/17 12:13 88 04/12/17 12:00 100.1 F H 04/12/17 08:52 97 H 04/12/17 08:00 99.6 F 91 H 04/12/17 07:00 91 H 04/12/17 06:23 89 04/12/17 06:00 89 04/12/17 05:00 86 04/12/17 04:50 88 04/12/17 04:00 98.2 F 88 99 H 102 H 100 H 100 H 100 H 04/12/17 03:00 91 H 04/12/17 02:00 86 04/12/17 01:00 87 04/12/17 00:38 90 04/12/17 00:25 93 H 04/12/17 00:00 98.9 F 88 99 H 96 H 101 H 99 H 100 H 04/11/17 23:00 91 H 04/11/17 22:18 91 H 04/11/17 22:00 95 H 04/11/17 21:00 100 H 04/11/17 20:33 112 H 04/11/17 20:00 99.6 F 99 H 94 H 93 H 92 H 92 H 93 H 04/11/17 19:00 90 04/11/17 18:04 04/11/17 18:00 88 04/11/17 17:00 90 04/11/17 16:00 99.6 F 97 H 04/11/17 15:40 93 H 04/11/17 15:00 90 Resp BP Pulse Ox 04/12/17 12:13 114/74 98 04/12/17 12:00 04/12/17 08:52 105/72 98 04/12/17 08:00 29 H 105/72 04/12/17 07:00 11 L 103/62 04/12/17 06:23 101/61 04/12/17 06:00 14 101/61 94 04/12/17 05:00 25 H 94/55 93 04/12/17 04:50 97/55 99 04/12/17 04:00 25 H 97/55 96 04/12/17 03:00 13 103/64 94 04/12/17 02:00 22 99/55 94 04/12/17 01:00 25 H 96/51 94 04/12/17 00:38 100/52 99 04/12/17 00:25 100/55 04/12/17 00:00 22 100/55 97 04/11/17 23:00 26 H 100/52 95 04/11/17 22:18 25 H 111/62 98 04/11/17 22:00 18 111/62 92 04/11/17 21:00 23 111/63 91 04/11/17 20:33 112/79 97 04/11/17 20:00 26 H 103/60 98 04/11/17 19:00 19 103/60 94 04/11/17 18:04 97/55 04/11/17 18:00 25 H 97/55 95 04/11/17 17:00 26 H 100/64 94 04/11/17 16:00 27 H 99/61 93 04/11/17 15:40 99/58 94 04/11/17 15:00 22 99/58 - Physical Examination General: Other (unresponsive on the vent) HEENT: Positive: Other (unresponsive, vent) Neck: Positive: neck supple, trachea midline. Negative: JVD/HJR Cardiac: Positive: Reg Rate and Rhythm Lungs: Positive: Ventilated Respirations Neuro: Positive: Other (unresponsive post VF arrest) Abdomen: Positive: Soft, Active Bowel Sounds Skin: Positive: Clear Extremities: Absent: edema - Labs and Meds Cardiac Enzymes 04/12/17 Range/Units 05:00 AST 158 H (5-40) units/L Comprehensive Metabolic Panel 04/12/17 Range/Units 05:00 Direct Bilirubin 0.2 (0-0.2) mg/dL Indirect Bilirubin 0.5 mg/dL AST 158 H (5-40) units/L ALT 184 H (7-56) units/L Alkaline Phosphatase 170 H (35-129) units/L Total Protein 6.6 (6.3-8.2) g/dL Albumin 2.8 L (3.9-5) g/dL
--- NOTE | 2017-04-12 15:23 | Consultation ---
History of Present Illness Consult date: 04/12/17 History of present illness: no basic change in exam no response to verbal stimulation / auditory stimulation and limited limb movement to pain hiccups no longer noted ( brain stem reflex) overall prognosis is very poor given the widespread pattern of cortical neuronal hypoxia and ischemic changes seen on the repeat CT brother not here to provide clinical update Past History Past Medical History: No medical history (Reviewed), migraines Past Surgical History: No surgical history (reviewed) Social history: single, smoking (some current smoking per brother), alcohol abuse (some alcohol though quantity not known by brother though he states the patient had half pint of Olvin Cuadra on alexander), other (does [employer], brother works at same company. Brother says no illicit drugs.). denies: prescription drug abuse, IV drug use Family history: no significant family history, CAD (same brother as above had bypass surgery. Liver disease in at least one other brother.), diabetes (mother ) Medications and Allergies Allergies Allergy/AdvReac Type Severity Reaction Status Date / Time No Known Allergies Allergy Unverified 03/29/17 11:35 Home Medications Medication Instructions Recorded Confirmed Last Taken Type No Known Home Medications [No 03/30/17 03/30/17 Unknown History Reported Home Medications] Active Meds: Active Medications Acetaminophen (Tylenol) 1,000 mg PO Q6H PRN PRN Reason: Fever >101 Last Admin: 04/07/17 16:37 Dose: 1,000 mg Albuterol (Proventil) 2.5 mg IH Q3HRT PRN PRN Reason: Shortness Of Breath Lipase/Protease/Amylase (Pancreaze Dr 10,500 Unit) 1 each FEEDTUBE PRN PRN PRN Reason: For Clogged Feeding Tube Aspirin (Aspirin) 325 mg PO QDAY [facility] [place] Last Admin: 04/12/17 11:22 Dose: 325 mg Clopidogrel Bisulfate (Plavix) 300 mg PO ONCE ONE Stop: 04/15/17 10:01 Clopidogrel Bisulfate (Plavix) 75 mg PO QDAY [facility] [place] Dextrose (D50w (25gm) Syringe) 50 ml IV PRN PRN PRN Reason: Hypoglycemia Docusate Sodium (Colace) 100 mg FEEDTUBE BID [facility] [place] Last Admin: 04/11/17 21:59 Dose: 100 mg Heparin Sodium (Porcine) (Heparin) 5,000 unit SUB-Q Q12HR [facility] [place] Last Admin: 04/12/17 11:22 Dose: 5,000 unit Hydrophilic Ointment (Vaseline Lip Therapy) 1 applic TP Q2HR PRN PRN Reason: Dry Lips Last Admin: 03/31/17 22:50 Dose: 1 applic Fentanyl Citrate (Fentanyl Drip Premix) 2,000 mcg in 100 mls @ 4.309 mls/hr IV TITR CHETAN; 1 MCG/KG/HR PRN Reason: Protocol Propofol (Diprivan 10 Mg/Ml) 1,000 mg in 100 mls @ 2.585 mls/hr IV TITR CHEATN; 5 MCG/KG/MIN PRN Reason: Protocol Last Titration: 04/10/17 09:20 Dose: 0 mcg/kg/min, 0 mls/hr Lisinopril (Zestril) 2.5 mg PO QDAY [facility] [place] Last Admin: 04/12/17 11:21 Dose: 2.5 mg Metoprolol Tartrate (Lopressor) 2.5 mg IV Q4HR PRN PRN Reason: HR>130 Last Admin: 04/09/17 19:41 Dose: 2.5 mg Metoprolol Tartrate (Lopressor) 25 mg PO Q6HR [facility] [place] Last Admin: 04/12/17 11:22 Dose: 25 mg Multi-Ingred Cream/Lotion/Oil/Oint (Artificial Tears Ophth Oint) 1 applic OU Q4HR PRN PRN Reason: Dry Eye(s) Last Admin: 03/31/17 22:51 Dose: 1 applic Nitroglycerin (Nitro Dur) 0.2 mg TD QDAY@0600 [facility] [place] Pantoprazole (Protonix) 40 mg FEEDTUBE DAILY [facility] [place] Last Admin: 04/12/17 11:22 Dose: 40 mg Simple Syrup (Simple Syrup) 15 ml FEEDTUBE PRN PRN PRN Reason: Hypoglycemia Simple Syrup (Simple Syrup) 30 ml FEEDTUBE PRN PRN PRN Reason: Hypoglycemia Sodium Bicarbonate (Sodium Bicarbonate) 325 mg FEEDTUBE PRN PRN PRN Reason: For Clogged Feeding Tube Physical Examination - Vital Signs Vital Signs: Vital Signs Pulse Resp Pulse Ox 113 H 28 H 93 03/29/17 11:33 03/29/17 11:33 03/29/17 11:33 Results - Laboratory Findings CBC and BMP: 04/10/17 04:16 04/10/17 04:16 Abnormal Lab Findings: Abnormal Labs 03/29/17 03/29/17 03/29/17 11:35 11:35 11:40 WBC Hgb MCV 98 H MCH 33 H Plt Count Lymph % (Auto) Lymph # Seg Neutrophils % Lymphocytes % (Manual) Monocytes % (Manual) 9.0 H Nucleated RBC % 1.0 H Seg Neutrophils # Seg Neutrophils # Man Monocytes # (Manual) 0.9 H PT 15.8 H INR 1.20 H Activated Clotting Time POC ABG pH POC ABG pCO2 POC ABG pO2 Sodium Potassium 2.7 L* Chloride 95.3 L Carbon Dioxide 17 L BUN Creatinine Glucose 435 H POC Glucose Calcium Magnesium AST ALT Alkaline Phosphatase Total Creatine Kinase CK-MB (CK-2) CK-MB (CK-2) Rel Index Troponin T C-Reactive Protein Total Protein 6.1 L Albumin 3.5 L Triglycerides Ur Specific [employer] 03/29/17 03/29/17 03/29/17 12:34 13:10 13:25 WBC Hgb MCV MCH Plt Count Lymph % (Auto) Lymph # Seg Neutrophils % Lymphocytes % (Manual) Monocytes % (Manual) Nucleated RBC % Seg Neutrophils # Seg Neutrophils # Man Monocytes # (Manual) PT INR Activated Clotting Time 142 H 169 H 175 H POC ABG pH POC ABG pCO2 POC ABG pO2 Sodium Potassium Chloride Carbon Dioxide BUN Creatinine Glucose POC Glucose Calcium Magnesium AST ALT Alkaline Phosphatase Total Creatine Kinase CK-MB (CK-2) CK-MB (CK-2) Rel Index Troponin T C-Reactive Protein Total Protein Albumin Triglycerides Ur Specific [employer] 03/29/17 03/29/17 03/29/17 14:50 15:18 19:52 WBC Hgb MCV MCH Plt Count Lymph % (Auto) Lymph # Seg Neutrophils % Lymphocytes % (Manual) Monocytes % (Manual) Nucleated RBC % Seg Neutrophils # Seg Neutrophils # Man Monocytes # (Manual) PT INR Activated Clotting Time 175 H POC ABG pH 7.293 L POC ABG pCO2 POC ABG pO2 602 H Sodium Potassium Chloride Carbon Dioxide BUN Creatinine Glucose POC Glucose Calcium Magnesium AST ALT Alkaline Phosphatase Total Creatine Kinase 7263 H CK-MB (CK-2) > 300.0 H CK-MB (CK-2) Rel Index 4.1 H Troponin T 8.080 H* D C-Reactive Protein Total Protein Albumin Triglycerides 195 H Ur Specific [employer] 01/04/18 01/04/18 01/04/18 03:50 03:50 06:19 WBC 19.5 H Hgb MCV MCH Plt Count Lymph % (Auto) Lymph # Seg Neutrophils % Lymphocytes % (Manual) 7.0 L Monocytes % (Manual) Nucleated RBC % Seg Neutrophils # Seg Neutrophils # Man 12.7 H Monocytes # (Manual) 1.4 H PT INR Activated Clotting Time POC ABG pH POC ABG pCO2 28.2 L POC ABG pO2 108 H Sodium Potassium Chloride 108.9 H Carbon Dioxide 15 L BUN 25 H Creatinine Glucose 158 H POC Glucose Calcium 8.1 L Magnesium AST ALT Alkaline Phosphatase Total Creatine Kinase 7963 H CK-MB (CK-2) > 300.0 H CK-MB (CK-2) Rel Index Troponin T 6.850 H* C-Reactive Protein Total Protein Albumin Triglycerides Ur Specific [employer] 03/30/17 03/30/17 03/31/17 09:45 16:04 02:19 WBC Hgb MCV MCH Plt Count Lymph % (Auto) Lymph # Seg Neutrophils % Lymphocytes % (Manual) Monocytes % (Manual) Nucleated RBC % Seg Neutrophils # Seg Neutrophils # Man Monocytes # (Manual) PT INR Activated Clotting Time POC ABG pH POC ABG pCO2 POC ABG pO2 Sodium Potassium Chloride Carbon Dioxide BUN Creatinine Glucose POC Glucose 137 H Calcium Magnesium AST ALT Alkaline Phosphatase Total Creatine Kinase CK-MB (CK-2) CK-MB (CK-2) Rel Index Troponin T C-Reactive Protein 21.80 H Total Protein Albumin Triglycerides Ur Specific [employer] 1.031 H 03/31/17 03/31/17 03/31/17 03:57 06:54 09:22 WBC Hgb MCV MCH Plt Count Lymph % (Auto) Lymph # Seg Neutrophils % Lymphocytes % (Manual) Monocytes % (Manual) Nucleated RBC % Seg Neutrophils # Seg Neutrophils # Man Monocytes # (Manual) PT INR Activated Clotting Time POC ABG pH 7.475 H POC ABG pCO2 25.4 L POC ABG pO2 62 L Sodium Potassium Chloride Carbon Dioxide 19 L BUN 22 H Creatinine 0.6 L Glucose 148 H POC Glucose 143 H Calcium 8.3 L Magnesium AST ALT Alkaline Phosphatase Total Creatine Kinase CK-MB (CK-2) CK-MB (CK-2) Rel Index Troponin T C-Reactive Protein Total Protein Albumin Triglycerides Ur Specific [employer] 03/31/17 03/31/17 03/31/17 11:40 17:47 23:38 WBC Hgb MCV MCH Plt Count Lymph % (Auto) Lymph # Seg Neutrophils % Lymphocytes % (Manual) Monocytes % (Manual) Nucleated RBC % Seg Neutrophils # Seg Neutrophils # Man Monocytes # (Manual) PT INR Activated Clotting Time POC ABG pH POC ABG pCO2 POC ABG pO2 Sodium Potassium Chloride Carbon Dioxide BUN Creatinine Glucose POC Glucose 127 H 137 H 148 H Calcium Magnesium AST ALT Alkaline Phosphatase Total Creatine Kinase CK-MB (CK-2) CK-MB (CK-2) Rel Index Troponin T C-Reactive Protein Total Protein Albumin Triglycerides Ur Specific [employer] 04/01/17 04/01/17 04/01/17 04:29 05:01 11:54 WBC Hgb MCV MCH Plt Count Lymph % (Auto) Lymph # Seg Neutrophils % Lymphocytes % (Manual) Monocytes % (Manual) Nucleated RBC % Seg Neutrophils # Seg Neutrophils # Man Monocytes # (Manual) PT INR Activated Clotting Time POC ABG pH 7.513 H POC ABG pCO2 22.1 L POC ABG pO2 64 L Sodium Potassium Chloride Carbon Dioxide BUN Creatinine Glucose POC Glucose 121 H Calcium Magnesium AST ALT Alkaline Phosphatase Total Creatine Kinase CK-MB (CK-2) CK-MB (CK-2) Rel Index Troponin T C-Reactive Protein Total Protein Albumin Triglycerides 151 H Ur Specific [employer] 04/01/17 04/02/17 04/02/17 18:17 00:11 04:52 WBC Hgb MCV MCH Plt Count Lymph % (Auto) Lymph # Seg Neutrophils % Lymphocytes % (Manual) Monocytes % (Manual) Nucleated RBC % Seg Neutrophils # Seg Neutrophils # Man Monocytes # (Manual) PT INR Activated Clotting Time POC ABG pH 7.524 H POC ABG pCO2 25.5 L POC ABG pO2 66 L Sodium Potassium Chloride Carbon Dioxide BUN Creatinine Glucose POC Glucose 117 H 122 H Calcium Magnesium AST ALT Alkaline Phosphatase Total Creatine Kinase CK-MB (CK-2) CK-MB (CK-2) Rel Index Troponin T C-Reactive Protein Total Protein Albumin Triglycerides Ur Specific [employer] 04/02/17 04/02/17 04/02/17 05:18 10:41 12:19 WBC Hgb MCV MCH Plt Count Lymph % (Auto) Lymph # Seg Neutrophils % Lymphocytes % (Manual) Monocytes % (Manual) Nucleated RBC % Seg Neutrophils # Seg Neutrophils # Man Monocytes # (Manual) PT INR Activated Clotting Time POC ABG pH 7.534 H POC ABG pCO2 27.4 L POC ABG pO2 Sodium Potassium Chloride Carbon Dioxide BUN Creatinine Glucose POC Glucose 132 H 129 H Calcium Magnesium AST ALT Alkaline Phosphatase Total Creatine Kinase CK-MB (CK-2) CK-MB (CK-2) Rel Index Troponin T C-Reactive Protein Total Protein Albumin Triglycerides Ur Specific [employer] 04/02/17 04/03/17 04/03/17 18:05 00:08 05:09 WBC Hgb MCV MCH Plt Count Lymph % (Auto) Lymph # Seg Neutrophils % Lymphocytes % (Manual) Monocytes % (Manual) Nucleated RBC % Seg Neutrophils # Seg Neutrophils # Man Monocytes # (Manual) PT INR Activated Clotting Time POC ABG pH 7.455 H POC ABG pCO2 33.2 L POC ABG pO2 120 H Sodium Potassium Chloride Carbon Dioxide BUN Creatinine Glucose POC Glucose 136 H 128 H Calcium Magnesium AST ALT Alkaline Phosphatase Total Creatine Kinase CK-MB (CK-2) CK-MB (CK-2) Rel Index Troponin T C-Reactive Protein Total Protein Albumin Triglycerides Ur Specific [employer] 04/03/17 04/03/17 04/03/17 06:32 11:54 12:16 WBC 11.9 H Hgb MCV MCH Plt Count 125 L Lymph % (Auto) 4.8 L Lymph # 0.6 L Seg Neutrophils % 86.7 H Lymphocytes % (Manual) Monocytes % (Manual) Nucleated RBC % Seg Neutrophils # 10.3 H Seg Neutrophils # Man Monocytes # (Manual) PT INR Activated Clotting Time POC ABG pH POC ABG pCO2 POC ABG pO2 Sodium Potassium Chloride Carbon Dioxide BUN Creatinine Glucose POC Glucose 138 H 143 H Calcium Magnesium AST ALT Alkaline Phosphatase Total Creatine Kinase CK-MB (CK-2) CK-MB (CK-2) Rel Index Troponin T C-Reactive Protein Total Protein Albumin Triglycerides Ur Specific [employer] 04/03/17 04/03/17 04/04/17 17:33 23:59 04:34 WBC Hgb MCV MCH Plt Count Lymph % (Auto) Lymph # Seg Neutrophils % Lymphocytes % (Manual) Monocytes % (Manual) Nucleated RBC % Seg Neutrophils # Seg Neutrophils # Man Monocytes # (Manual) PT INR Activated Clotting Time POC ABG pH 7.457 H POC ABG pCO2 29.8 L POC ABG pO2 76 L Sodium Potassium Chloride Carbon Dioxide BUN Creatinine Glucose POC Glucose 130 H 155 H Calcium Magnesium AST ALT Alkaline Phosphatase Total Creatine Kinase CK-MB (CK-2) CK-MB (CK-2) Rel Index Troponin T C-Reactive Protein Total Protein Albumin Triglycerides Ur Specific [employer] 04/04/17 04/04/17 04/04/17 05:27 12:22 18:18 WBC Hgb MCV MCH Plt Count Lymph % (Auto) Lymph # Seg Neutrophils % Lymphocytes % (Manual) Monocytes % (Manual) Nucleated RBC % Seg Neutrophils # Seg Neutrophils # Man Monocytes # (Manual) PT INR Activated Clotting Time POC ABG pH POC ABG pCO2 POC ABG pO2 Sodium Potassium Chloride Carbon Dioxide BUN Creatinine Glucose POC Glucose 164 H 146 H 130 H Calcium Magnesium AST ALT Alkaline Phosphatase Total Creatine Kinase CK-MB (CK-2) CK-MB (CK-2) Rel Index Troponin T C-Reactive Protein Total Protein Albumin Triglycerides Ur Specific [employer] 04/05/17 04/05/17 04/05/17 04:43 05:28 11:36 WBC Hgb MCV MCH Plt Count Lymph % (Auto) Lymph # Seg Neutrophils % Lymphocytes % (Manual) Monocytes % (Manual) Nucleated RBC % Seg Neutrophils # Seg Neutrophils # Man Monocytes # (Manual) PT INR Activated Clotting Time POC ABG pH 7.479 H POC ABG pCO2 33.5 L POC ABG pO2 76 L Sodium Potassium Chloride Carbon Dioxide BUN Creatinine Glucose POC Glucose 145 H 136 H Calcium Magnesium AST ALT Alkaline Phosphatase Total Creatine Kinase CK-MB (CK-2) CK-MB (CK-2) Rel Index Troponin T C-Reactive Protein Total Protein Albumin Triglycerides Ur Specific [employer] 04/05/17 04/06/17 04/06/17 17:58 00:16 05:26 WBC Hgb MCV MCH Plt Count Lymph % (Auto) Lymph # Seg Neutrophils % Lymphocytes % (Manual) Monocytes % (Manual) Nucleated RBC % Seg Neutrophils # Seg Neutrophils # Man Monocytes # (Manual) PT INR Activated Clotting Time POC ABG pH POC ABG pCO2 POC ABG pO2 Sodium Potassium Chloride Carbon Dioxide BUN Creatinine Glucose POC Glucose 130 H 159 H 146 H Calcium Magnesium AST ALT Alkaline Phosphatase Total Creatine Kinase CK-MB (CK-2) CK-MB (CK-2) Rel Index Troponin T C-Reactive Protein Total Protein Albumin Triglycerides Ur Specific [employer] 04/06/17 04/06/17 04/07/17 13:11 16:54 11:45 WBC Hgb MCV MCH Plt Count Lymph % (Auto) Lymph # Seg Neutrophils % Lymphocytes % (Manual) Monocytes % (Manual) Nucleated RBC % Seg Neutrophils # Seg Neutrophils # Man Monocytes # (Manual) PT INR Activated Clotting Time POC ABG pH 7.517 H POC ABG pCO2 32.1 L POC ABG pO2 Sodium Potassium Chloride Carbon Dioxide BUN Creatinine Glucose POC Glucose 132 H 123 H Calcium Magnesium AST ALT Alkaline Phosphatase Total Creatine Kinase CK-MB (CK-2) CK-MB (CK-2) Rel Index Troponin T C-Reactive Protein Total Protein Albumin Triglycerides Ur Specific [employer] 04/07/17 04/07/17 04/07/17 12:51 17:40 23:55 WBC Hgb MCV MCH Plt Count Lymph % (Auto) Lymph # Seg Neutrophils % Lymphocytes % (Manual) Monocytes % (Manual) Nucleated RBC % Seg Neutrophils # Seg Neutrophils # Man Monocytes # (Manual) PT INR Activated Clotting Time POC ABG pH POC ABG pCO2 POC ABG pO2 Sodium Potassium Chloride Carbon Dioxide BUN Creatinine Glucose POC Glucose 138 H 154 H 143 H Calcium Magnesium AST ALT Alkaline Phosphatase Total Creatine Kinase CK-MB (CK-2) CK-MB (CK-2) Rel Index Troponin T C-Reactive Protein Total Protein Albumin Triglycerides Ur Specific [employer] 04/08/17 04/08/17 04/08/17 05:27 11:14 17:44 WBC Hgb MCV MCH Plt Count Lymph % (Auto) Lymph # Seg Neutrophils % Lymphocytes % (Manual) Monocytes % (Manual) Nucleated RBC % Seg Neutrophils # Seg Neutrophils # Man Monocytes # (Manual) PT INR Activated Clotting Time POC ABG pH POC ABG pCO2 POC ABG pO2 Sodium Potassium Chloride Carbon Dioxide BUN Creatinine Glucose POC Glucose 142 H 153 H 129 H Calcium Magnesium AST ALT Alkaline Phosphatase Total Creatine Kinase CK-MB (CK-2) CK-MB (CK-2) Rel Index Troponin T C-Reactive Protein Total Protein Albumin Triglycerides Ur Specific [employer] 04/09/17 04/09/17 04/09/17 08:20 11:21 17:37 WBC Hgb MCV MCH Plt Count Lymph % (Auto) Lymph # Seg Neutrophils % Lymphocytes % (Manual) Monocytes % (Manual) Nucleated RBC % Seg Neutrophils # Seg Neutrophils # Man Monocytes # (Manual) PT INR Activated Clotting Time POC ABG pH POC ABG pCO2 POC ABG pO2 Sodium 147 H Potassium Chloride 108.8 H Carbon Dioxide BUN 39 H Creatinine 0.5 L Glucose 138 H POC Glucose 152 H 109 H Calcium Magnesium AST ALT Alkaline Phosphatase Total Creatine Kinase CK-MB (CK-2) CK-MB (CK-2) Rel Index Troponin T C-Reactive Protein Total Protein Albumin Triglycerides Ur Specific [employer] 04/10/17 04/10/17 04/10/17 00:13 04:16 04:16 WBC Hgb 11.5 L MCV 96 H MCH Plt Count 103 L Lymph % (Auto) 11.1 L Lymph # Seg Neutrophils % 81.5 H Lymphocytes % (Manual) Monocytes % (Manual) Nucleated RBC % Seg Neutrophils # 8.8 H Seg Neutrophils # Man Monocytes # (Manual) PT INR Activated Clotting Time POC ABG pH POC ABG pCO2 POC ABG pO2 Sodium 148 H Potassium Chloride 109.0 H Carbon Dioxide BUN 36 H Creatinine 0.5 L Glucose 131 H POC Glucose 127 H Calcium 8.1 L Magnesium 2.40 H AST 206 H ALT 228 H Alkaline Phosphatase 178 H Total Creatine Kinase CK-MB (CK-2) CK-MB (CK-2) Rel Index Troponin T C-Reactive Protein Total Protein Albumin 2.8 L Triglycerides Ur Specific [employer] 04/10/17 04/10/17 04/10/17 06:01 11:57 18:27 WBC Hgb MCV MCH Plt Count Lymph % (Auto) Lymph # Seg Neutrophils % Lymphocytes % (Manual) Monocytes % (Manual) Nucleated RBC % Seg Neutrophils # Seg Neutrophils # Man Monocytes # (Manual) PT INR Activated Clotting Time POC ABG pH POC ABG pCO2 POC ABG pO2 Sodium Potassium Chloride Carbon Dioxide BUN Creatinine Glucose POC Glucose 108 H 154 H 130 H Calcium Magnesium AST ALT Alkaline Phosphatase Total Creatine Kinase CK-MB (CK-2) CK-MB (CK-2) Rel Index Troponin T C-Reactive Protein Total Protein Albumin Triglycerides Ur Specific [employer] 04/11/17 04/11/17 04/12/17 12:25 17:10 00:22 WBC Hgb MCV MCH Plt Count Lymph % (Auto) Lymph # Seg Neutrophils % Lymphocytes % (Manual) Monocytes % (Manual) Nucleated RBC % Seg Neutrophils # Seg Neutrophils # Man Monocytes # (Manual) PT INR Activated Clotting Time POC ABG pH POC ABG pCO2 POC ABG pO2 Sodium Potassium Chloride Carbon Dioxide BUN Creatinine Glucose POC Glucose 107 H 129 H 128 H Calcium Magnesium AST ALT Alkaline Phosphatase Total Creatine Kinase CK-MB (CK-2) CK-MB (CK-2) Rel Index Troponin T C-Reactive Protein Total Protein Albumin Triglycerides Ur Specific [employer] 04/12/17 05:00 WBC Hgb MCV MCH Plt Count Lymph % (Auto) Lymph # Seg Neutrophils % Lymphocytes % (Manual) Monocytes % (Manual) Nucleated RBC % Seg Neutrophils # Seg Neutrophils # Man Monocytes # (Manual) PT INR Activated Clotting Time POC ABG pH POC ABG pCO2 POC ABG pO2 Sodium Potassium Chloride Carbon Dioxide BUN Creatinine Glucose POC Glucose Calcium Magnesium AST 158 H ALT 184 H Alkaline Phosphatase 170 H Total Creatine Kinase CK-MB (CK-2) CK-MB (CK-2) Rel Index Troponin T C-Reactive Protein Total Protein Albumin 2.8 L Triglycerides Ur Specific [employer]
[2017-04-12] MEDS: COLACE FEEDTUBE SCH ×2 (19:23→21:41)
[2017-04-12] MEDS: TYLENOL PO PRN (21:41)
[2017-04-13] MEDS ORDERED: CORDARONE 900 MG in D5W 482 ML IV SCH (05:00)
[2017-04-13 05:23] LABS: Alanine Aminotransferase 189 units/L (7-56); Albumin 2.6 g/dL (3.9-5); BUN/Creatinine Ratio 83; Blood Urea Nitrogen 33 mg/dL (9-20); Calcium 8.4 mg/dL (8.4-10.2); Hemolysis Index 3
[2017-04-13] MEDS: NITRO DUR TD SCH (06:00)
[2017-04-13] MEDS: LOPRESSOR PO SCH ×3 (06:00→18:02)
[2017-04-13] MEDS: COLACE FEEDTUBE SCH ×2 (10:10→22:17)
[2017-04-13] MEDS: ASPIRIN PO SCH (10:10)
[2017-04-13] MEDS: ZESTRIL PO SCH (10:10)
[2017-04-13] MEDS: PROTONIX FEEDTUBE SCH (10:11)
[2017-04-13] MEDS: HEPARIN SUB-Q SCH ×2 (10:11→22:17)
--- NOTE | 2017-04-13 10:52 | Progress Note ---
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 1. Plavix now on hold, awaiting PEG and Trach 2. Trach and Peg scheduled for Monday, tomorrow 3. Continue vent support and management 4. Continue all other cardiac meds 5. Back on Amio, statin off. Continue to monitor LFT's. If increasing, cards will likely need another anti-arrhythmic 6. Overall prognosis still remains poor given amount of downtime during arrest. Per neuro notes, they have discussed this with a brother. Maybe they need to reach to Divya and Larisa, the sisters, as those are the ones who have been designated by family at [employer]. CCT 31 minutes. Subjective Date of service: 04/13/17 Principal diagnosis: septic shock Interval history: Per nursing, had significant tachycardia last night. Amiodarone, restarted last night, IV. Objective Vital Signs - 12hr 04/12/17 04/12/17 04/12/17 23:00 23:25 23:44 Temperature 98.9 F Pulse Rate 87 86 Pulse Rate [ From Monitor] Pulse Rate [ Left Dorsalis Pedis] Pulse Rate [ Left Radial] Pulse Rate [ Right Dorsalis Pedis] Pulse Rate [ Right Radial] Respiratory 27 H 26 H 28 H Rate Blood Pressure 97/53 97/53 97/53 O2 Sat by Pulse 93 98 98 Oximetry 04/12/17 04/13/17 04/13/17 23:48 00:00 01:00 Temperature Pulse Rate 86 84 Pulse Rate [ 89 From Monitor] Pulse Rate [ 89 Left Dorsalis Pedis] Pulse Rate [ 89 Left Radial] Pulse Rate [ 89 Right Dorsalis Pedis] Pulse Rate [ 89 Right Radial] Respiratory 27 H 26 H 25 H Rate Blood Pressure 103/60 104/59 O2 Sat by Pulse 98 93 94 Oximetry 04/13/17 04/13/17 04/13/17 02:00 03:00 04:00 Temperature Pulse Rate 81 82 83 Pulse Rate [ From Monitor] Pulse Rate [ Left Dorsalis Pedis] Pulse Rate [ Left Radial] Pulse Rate [ Right Dorsalis Pedis] Pulse Rate [ Right Radial] Respiratory 21 22 23 Rate Blood Pressure 99/57 100/52 104/55 O2 Sat by Pulse 93 95 95 Oximetry 04/13/17 04/13/17 04/13/17 05:00 06:00 07:00 Temperature Pulse Rate 87 85 81 Pulse Rate [ From Monitor] Pulse Rate [ Left Dorsalis Pedis] Pulse Rate [ Left Radial] Pulse Rate [ Right Dorsalis Pedis] Pulse Rate [ Right Radial] Respiratory 21 22 22 Rate Blood Pressure 106/62 96/54 93/59 O2 Sat by Pulse 97 93 95 Oximetry 04/13/17 04/13/17 04/13/17 08:00 08:24 09:00 Temperature 98.9 F Pulse Rate 88 88 85 Pulse Rate [ From Monitor] Pulse Rate [ Left Dorsalis Pedis] Pulse Rate [ Left Radial] Pulse Rate [ Right Dorsalis Pedis] Pulse Rate [ Right Radial] Respiratory 24 24 Rate Blood Pressure 100/62 100/62 107/60 O2 Sat by Pulse 98 100 93 Oximetry 04/13/17 10:00 Temperature Pulse Rate 83 Pulse Rate [ From Monitor] Pulse Rate [ Left Dorsalis Pedis] Pulse Rate [ Left Radial] Pulse Rate [ Right Dorsalis Pedis] Pulse Rate [ Right Radial] Respiratory 23 Rate Blood Pressure 92/55 O2 Sat by Pulse 93 Oximetry Constitutional: comatose Eyes: injected, other (pinpoint pupils equal and non reactive) ENT: other (orally intubated, ) Neck: supple, no JVD Effort: normal Ascultation: Bilateral: clear, diminished breath sounds ( ) Percussion: Bilateral: not dull Cardiovascular: regular rate and rhythm Gastrointestinal: hypoactive bowel sounds, other (mild distention) Integumentary: other (multiple tattoos) Extremities: no cyanosis Neurologic: unable to assess, other (no posturing on physical examination and stimulation,irregular breathing) CBC and BMP: 04/10/17 04:16 04/13/17 04:45 ABG, PT/INR, D-dimer: ABG POC ABG pH 7.517 (7.35-7.45) H 04/07/17 11:45 POC ABG pCO2 32.1 (35-45) L 04/07/17 11:45 POC ABG pO2 93 (80-105) 04/07/17 11:45 POC ABG HCO3 26.0 04/07/17 11:45 POC ABG Total CO2 27 04/07/17 11:45 POC ABG O2 Sat 98 04/07/17 11:45 PT/INR, D-dimer PT 14.9 Sec. (12.2-14.9) 04/10/17 04:16 INR 1.11 (0.87-1.13) 04/10/17 04:16 Abnormal lab findings: Abnormal Labs 03/29/17 03/29/17 03/29/17 11:35 11:35 11:40 WBC Hgb MCV 98 H MCH 33 H Plt Count Lymph % (Auto) Lymph # Seg Neutrophils % Lymphocytes % (Manual) Monocytes % (Manual) 9.0 H Nucleated RBC % 1.0 H Seg Neutrophils # Seg Neutrophils # Man Monocytes # (Manual) 0.9 H PT 15.8 H INR 1.20 H Activated Clotting Time POC ABG pH POC ABG pCO2 POC ABG pO2 Sodium Potassium 2.7 L* Chloride 95.3 L Carbon Dioxide 17 L BUN Creatinine Glucose 435 H POC Glucose Calcium Magnesium AST ALT Alkaline Phosphatase Total Creatine Kinase CK-MB (CK-2) CK-MB (CK-2) Rel Index Troponin T C-Reactive Protein Total Protein 6.1 L Albumin 3.5 L Triglycerides Ur Specific [place] 03/29/17 03/29/17 03/29/17 12:34 13:10 13:25 WBC Hgb MCV MCH Plt Count Lymph % (Auto) Lymph # Seg Neutrophils % Lymphocytes % (Manual) Monocytes % (Manual) Nucleated RBC % Seg Neutrophils # Seg Neutrophils # Man Monocytes # (Manual) PT INR Activated Clotting Time 142 H 169 H 175 H POC ABG pH POC ABG pCO2 POC ABG pO2 Sodium Potassium Chloride Carbon Dioxide BUN Creatinine Glucose POC Glucose Calcium Magnesium AST ALT Alkaline Phosphatase Total Creatine Kinase CK-MB (CK-2) CK-MB (CK-2) Rel Index Troponin T C-Reactive Protein Total Protein Albumin Triglycerides Ur Specific [place] 03/29/17 03/29/17 03/29/17 14:50 15:18 19:52 WBC Hgb MCV MCH Plt Count Lymph % (Auto) Lymph # Seg Neutrophils % Lymphocytes % (Manual) Monocytes % (Manual) Nucleated RBC % Seg Neutrophils # Seg Neutrophils # Man Monocytes # (Manual) PT INR Activated Clotting Time 175 H POC ABG pH 7.293 L POC ABG pCO2 POC ABG pO2 602 H Sodium Potassium Chloride Carbon Dioxide BUN Creatinine Glucose POC Glucose Calcium Magnesium AST ALT Alkaline Phosphatase Total Creatine Kinase 7263 H CK-MB (CK-2) > 300.0 H CK-MB (CK-2) Rel Index 4.1 H Troponin T 8.080 H* D C-Reactive Protein Total Protein Albumin Triglycerides 195 H Ur Specific [place] 03/30/17 03/30/17 03/30/17 03:50 03:50 06:19 WBC 19.5 H Hgb MCV MCH Plt Count Lymph % (Auto) Lymph # Seg Neutrophils % Lymphocytes % (Manual) 7.0 L Monocytes % (Manual) Nucleated RBC % Seg Neutrophils # Seg Neutrophils # Man 12.7 H Monocytes # (Manual) 1.4 H PT INR Activated Clotting Time POC ABG pH POC ABG pCO2 28.2 L POC ABG pO2 108 H Sodium Potassium Chloride 108.9 H Carbon Dioxide 15 L BUN 25 H Creatinine Glucose 158 H POC Glucose Calcium 8.1 L Magnesium AST ALT Alkaline Phosphatase Total Creatine Kinase 7963 H CK-MB (CK-2) > 300.0 H CK-MB (CK-2) Rel Index Troponin T 6.850 H* C-Reactive Protein Total Protein Albumin Triglycerides Ur Specific [place] 03/30/17 03/30/17 03/31/17 09:45 16:04 02:19 WBC Hgb MCV MCH Plt Count Lymph % (Auto) Lymph # Seg Neutrophils % Lymphocytes % (Manual) Monocytes % (Manual) Nucleated RBC % Seg Neutrophils # Seg Neutrophils # Man Monocytes # (Manual) PT INR Activated Clotting Time POC ABG pH POC ABG pCO2 POC ABG pO2 Sodium Potassium Chloride Carbon Dioxide BUN Creatinine Glucose POC Glucose 137 H Calcium Magnesium AST ALT Alkaline Phosphatase Total Creatine Kinase CK-MB (CK-2) CK-MB (CK-2) Rel Index Troponin T C-Reactive Protein 21.80 H Total Protein Albumin Triglycerides Ur Specific [place] 1.031 H 03/31/17 03/31/17 03/31/17 03:57 06:54 09:22 WBC Hgb MCV MCH Plt Count Lymph % (Auto) Lymph # Seg Neutrophils % Lymphocytes % (Manual) Monocytes % (Manual) Nucleated RBC % Seg Neutrophils # Seg Neutrophils # Man Monocytes # (Manual) PT INR Activated Clotting Time POC ABG pH 7.475 H POC ABG pCO2 25.4 L POC ABG pO2 62 L Sodium Potassium Chloride Carbon Dioxide 19 L BUN 22 H Creatinine 0.6 L Glucose 148 H POC Glucose 143 H Calcium 8.3 L Magnesium AST ALT Alkaline Phosphatase Total Creatine Kinase CK-MB (CK-2) CK-MB (CK-2) Rel Index Troponin T C-Reactive Protein Total Protein Albumin Triglycerides Ur Specific [place] 03/31/17 03/31/17 03/31/17 11:40 17:47 23:38 WBC Hgb MCV MCH Plt Count Lymph % (Auto) Lymph # Seg Neutrophils % Lymphocytes % (Manual) Monocytes % (Manual) Nucleated RBC % Seg Neutrophils # Seg Neutrophils # Man Monocytes # (Manual) PT INR Activated Clotting Time POC ABG pH POC ABG pCO2 POC ABG pO2 Sodium Potassium Chloride Carbon Dioxide BUN Creatinine Glucose POC Glucose 127 H 137 H 148 H Calcium Magnesium AST ALT Alkaline Phosphatase Total Creatine Kinase CK-MB (CK-2) CK-MB (CK-2) Rel Index Troponin T C-Reactive Protein Total Protein Albumin Triglycerides Ur Specific [place] 04/01/17 04/01/17 04/01/17 04:29 05:01 11:54 WBC Hgb MCV MCH Plt Count Lymph % (Auto) Lymph # Seg Neutrophils % Lymphocytes % (Manual) Monocytes % (Manual) Nucleated RBC % Seg Neutrophils # Seg Neutrophils # Man Monocytes # (Manual) PT INR Activated Clotting Time POC ABG pH 7.513 H POC ABG pCO2 22.1 L POC ABG pO2 64 L Sodium Potassium Chloride Carbon Dioxide BUN Creatinine Glucose POC Glucose 121 H Calcium Magnesium AST ALT Alkaline Phosphatase Total Creatine Kinase CK-MB (CK-2) CK-MB (CK-2) Rel Index Troponin T C-Reactive Protein Total Protein Albumin Triglycerides 151 H Ur Specific [place] 04/01/17 04/02/17 04/02/17 18:17 00:11 04:52 WBC Hgb MCV MCH Plt Count Lymph % (Auto) Lymph # Seg Neutrophils % Lymphocytes % (Manual) Monocytes % (Manual) Nucleated RBC % Seg Neutrophils # Seg Neutrophils # Man Monocytes # (Manual) PT INR Activated Clotting Time POC ABG pH 7.524 H POC ABG pCO2 25.5 L POC ABG pO2 66 L Sodium Potassium Chloride Carbon Dioxide BUN Creatinine Glucose POC Glucose 117 H 122 H Calcium Magnesium AST ALT Alkaline Phosphatase Total Creatine Kinase CK-MB (CK-2) CK-MB (CK-2) Rel Index Troponin T C-Reactive Protein Total Protein Albumin Triglycerides Ur Specific [place] 04/02/17 04/02/17 04/02/17 05:18 10:41 12:19 WBC Hgb MCV MCH Plt Count Lymph % (Auto) Lymph # Seg Neutrophils % Lymphocytes % (Manual) Monocytes % (Manual) Nucleated RBC % Seg Neutrophils # Seg Neutrophils # Man Monocytes # (Manual) PT INR Activated Clotting Time POC ABG pH 7.534 H POC ABG pCO2 27.4 L POC ABG pO2 Sodium Potassium Chloride Carbon Dioxide BUN Creatinine Glucose POC Glucose 132 H 129 H Calcium Magnesium AST ALT Alkaline Phosphatase Total Creatine Kinase CK-MB (CK-2) CK-MB (CK-2) Rel Index Troponin T C-Reactive Protein Total Protein Albumin Triglycerides Ur Specific [place] 04/02/17 04/03/17 04/03/17 18:05 00:08 05:09 WBC Hgb MCV MCH Plt Count Lymph % (Auto) Lymph # Seg Neutrophils % Lymphocytes % (Manual) Monocytes % (Manual) Nucleated RBC % Seg Neutrophils # Seg Neutrophils # Man Monocytes # (Manual) PT INR Activated Clotting Time POC ABG pH 7.455 H POC ABG pCO2 33.2 L POC ABG pO2 120 H Sodium Potassium Chloride Carbon Dioxide BUN Creatinine Glucose POC Glucose 136 H 128 H Calcium Magnesium AST ALT Alkaline Phosphatase Total Creatine Kinase CK-MB (CK-2) CK-MB (CK-2) Rel Index Troponin T C-Reactive Protein Total Protein Albumin Triglycerides Ur Specific [place] 04/03/17 04/03/17 04/03/17 06:32 11:54 12:16 WBC 11.9 H Hgb MCV MCH Plt Count 125 L Lymph % (Auto) 4.8 L Lymph # 0.6 L Seg Neutrophils % 86.7 H Lymphocytes % (Manual) Monocytes % (Manual) Nucleated RBC % Seg Neutrophils # 10.3 H Seg Neutrophils # Man Monocytes # (Manual) PT INR Activated Clotting Time POC ABG pH POC ABG pCO2 POC ABG pO2 Sodium Potassium Chloride Carbon Dioxide BUN Creatinine Glucose POC Glucose 138 H 143 H Calcium Magnesium AST ALT Alkaline Phosphatase Total Creatine Kinase CK-MB (CK-2) CK-MB (CK-2) Rel Index Troponin T C-Reactive Protein Total Protein Albumin Triglycerides Ur Specific [place] 04/03/17 04/03/17 04/04/17 17:33 23:59 04:34 WBC Hgb MCV MCH Plt Count Lymph % (Auto) Lymph # Seg Neutrophils % Lymphocytes % (Manual) Monocytes % (Manual) Nucleated RBC % Seg Neutrophils # Seg Neutrophils # Man Monocytes # (Manual) PT INR Activated Clotting Time POC ABG pH 7.457 H POC ABG pCO2 29.8 L POC ABG pO2 76 L Sodium Potassium Chloride Carbon Dioxide BUN Creatinine Glucose POC Glucose 130 H 155 H Calcium Magnesium AST ALT Alkaline Phosphatase Total Creatine Kinase CK-MB (CK-2) CK-MB (CK-2) Rel Index Troponin T C-Reactive Protein Total Protein Albumin Triglycerides Ur Specific [place] 04/04/17 04/04/17 04/04/17 05:27 12:22 18:18 WBC Hgb MCV MCH Plt Count Lymph % (Auto) Lymph # Seg Neutrophils % Lymphocytes % (Manual) Monocytes % (Manual) Nucleated RBC % Seg Neutrophils # Seg Neutrophils # Man Monocytes # (Manual) PT INR Activated Clotting Time POC ABG pH POC ABG pCO2 POC ABG pO2 Sodium Potassium Chloride Carbon Dioxide BUN Creatinine Glucose POC Glucose 164 H 146 H 130 H Calcium Magnesium AST ALT Alkaline Phosphatase Total Creatine Kinase CK-MB (CK-2) CK-MB (CK-2) Rel Index Troponin T C-Reactive Protein Total Protein Albumin Triglycerides Ur Specific [place] 04/05/17 04/05/17 04/05/17 04:43 05:28 11:36 WBC Hgb MCV MCH Plt Count Lymph % (Auto) Lymph # Seg Neutrophils % Lymphocytes % (Manual) Monocytes % (Manual) Nucleated RBC % Seg Neutrophils # Seg Neutrophils # Man Monocytes # (Manual) PT INR Activated Clotting Time POC ABG pH 7.479 H POC ABG pCO2 33.5 L POC ABG pO2 76 L Sodium Potassium Chloride Carbon Dioxide BUN Creatinine Glucose POC Glucose 145 H 136 H Calcium Magnesium AST ALT Alkaline Phosphatase Total Creatine Kinase CK-MB (CK-2) CK-MB (CK-2) Rel Index Troponin T C-Reactive Protein Total Protein Albumin Triglycerides Ur Specific [place] 04/05/17 04/06/17 04/06/17 17:58 00:16 05:26 WBC Hgb MCV MCH Plt Count Lymph % (Auto) Lymph # Seg Neutrophils % Lymphocytes % (Manual) Monocytes % (Manual) Nucleated RBC % Seg Neutrophils # Seg Neutrophils # Man Monocytes # (Manual) PT INR Activated Clotting Time POC ABG pH POC ABG pCO2 POC ABG pO2 Sodium Potassium Chloride Carbon Dioxide BUN Creatinine Glucose POC Glucose 130 H 159 H 146 H Calcium Magnesium AST ALT Alkaline Phosphatase Total Creatine Kinase CK-MB (CK-2) CK-MB (CK-2) Rel Index Troponin T C-Reactive Protein Total Protein Albumin Triglycerides Ur Specific [place] 04/06/17 04/06/17 04/07/17 13:11 16:54 11:45 WBC Hgb MCV MCH Plt Count Lymph % (Auto) Lymph # Seg Neutrophils % Lymphocytes % (Manual) Monocytes % (Manual) Nucleated RBC % Seg Neutrophils # Seg Neutrophils # Man Monocytes # (Manual) PT INR Activated Clotting Time POC ABG pH 7.517 H POC ABG pCO2 32.1 L POC ABG pO2 Sodium Potassium Chloride Carbon Dioxide BUN Creatinine Glucose POC Glucose 132 H 123 H Calcium Magnesium AST ALT Alkaline Phosphatase Total Creatine Kinase CK-MB (CK-2) CK-MB (CK-2) Rel Index Troponin T C-Reactive Protein Total Protein Albumin Triglycerides Ur Specific [place] 04/07/17 04/07/17 04/07/17 12:51 17:40 23:55 WBC Hgb MCV MCH Plt Count Lymph % (Auto) Lymph # Seg Neutrophils % Lymphocytes % (Manual) Monocytes % (Manual) Nucleated RBC % Seg Neutrophils # Seg Neutrophils # Man Monocytes # (Manual) PT INR Activated Clotting Time POC ABG pH POC ABG pCO2 POC ABG pO2 Sodium Potassium Chloride Carbon Dioxide BUN Creatinine Glucose POC Glucose 138 H 154 H 143 H Calcium Magnesium AST ALT Alkaline Phosphatase Total Creatine Kinase CK-MB (CK-2) CK-MB (CK-2) Rel Index Troponin T C-Reactive Protein Total Protein Albumin Triglycerides Ur Specific [place] 04/08/17 04/08/17 04/08/17 05:27 11:14 17:44 WBC Hgb MCV MCH Plt Count Lymph % (Auto) Lymph # Seg Neutrophils % Lymphocytes % (Manual) Monocytes % (Manual) Nucleated RBC % Seg Neutrophils # Seg Neutrophils # Man Monocytes # (Manual) PT INR Activated Clotting Time POC ABG pH POC ABG pCO2 POC ABG pO2 Sodium Potassium Chloride Carbon Dioxide BUN Creatinine Glucose POC Glucose 142 H 153 H 129 H Calcium Magnesium AST ALT Alkaline Phosphatase Total Creatine Kinase CK-MB (CK-2) CK-MB (CK-2) Rel Index Troponin T C-Reactive Protein Total Protein Albumin Triglycerides Ur Specific [place] 04/09/17 04/09/17 04/09/17 08:20 11:21 17:37 WBC Hgb MCV MCH Plt Count Lymph % (Auto) Lymph # Seg Neutrophils % Lymphocytes % (Manual) Monocytes % (Manual) Nucleated RBC % Seg Neutrophils # Seg Neutrophils # Man Monocytes # (Manual) PT INR Activated Clotting Time POC ABG pH POC ABG pCO2 POC ABG pO2 Sodium 147 H Potassium Chloride 108.8 H Carbon Dioxide BUN 39 H Creatinine 0.5 L Glucose 138 H POC Glucose 152 H 109 H Calcium Magnesium AST ALT Alkaline Phosphatase Total Creatine Kinase CK-MB (CK-2) CK-MB (CK-2) Rel Index Troponin T C-Reactive Protein Total Protein Albumin Triglycerides Ur Specific [place] 04/10/17 04/10/17 04/10/17 00:13 04:16 04:16 WBC Hgb 11.5 L MCV 96 H MCH Plt Count 103 L Lymph % (Auto) 11.1 L Lymph # Seg Neutrophils % 81.5 H Lymphocytes % (Manual) Monocytes % (Manual) Nucleated RBC % Seg Neutrophils # 8.8 H Seg Neutrophils # Man Monocytes # (Manual) PT INR Activated Clotting Time POC ABG pH POC ABG pCO2 POC ABG pO2 Sodium 148 H Potassium Chloride 109.0 H Carbon Dioxide BUN 36 H Creatinine 0.5 L Glucose 131 H POC Glucose 127 H Calcium 8.1 L Magnesium 2.40 H AST 206 H ALT 228 H Alkaline Phosphatase 178 H Total Creatine Kinase CK-MB (CK-2) CK-MB (CK-2) Rel Index Troponin T C-Reactive Protein Total Protein Albumin 2.8 L Triglycerides Ur Specific [place] 04/10/17 04/10/17 04/10/17 06:01 11:57 18:27 WBC Hgb MCV MCH Plt Count Lymph % (Auto) Lymph # Seg Neutrophils % Lymphocytes % (Manual) Monocytes % (Manual) Nucleated RBC % Seg Neutrophils # Seg Neutrophils # Man Monocytes # (Manual) PT INR Activated Clotting Time POC ABG pH POC ABG pCO2 POC ABG pO2 Sodium Potassium Chloride Carbon Dioxide BUN Creatinine Glucose POC Glucose 108 H 154 H 130 H Calcium Magnesium AST ALT Alkaline Phosphatase Total Creatine Kinase CK-MB (CK-2) CK-MB (CK-2) Rel Index Troponin T C-Reactive Protein Total Protein Albumin Triglycerides Ur Specific [place] 04/11/17 04/11/17 04/12/17 12:25 17:10 00:22 WBC Hgb MCV MCH Plt Count Lymph % (Auto) Lymph # Seg Neutrophils % Lymphocytes % (Manual) Monocytes % (Manual) Nucleated RBC % Seg Neutrophils # Seg Neutrophils # Man Monocytes # (Manual) PT INR Activated Clotting Time POC ABG pH POC ABG pCO2 POC ABG pO2 Sodium Potassium Chloride Carbon Dioxide BUN Creatinine Glucose POC Glucose 107 H 129 H 128 H Calcium Magnesium AST ALT Alkaline Phosphatase Total Creatine Kinase CK-MB (CK-2) CK-MB (CK-2) Rel Index Troponin T C-Reactive Protein Total Protein Albumin Triglycerides Ur Specific [place] 04/12/17 04/12/17 04/12/17 05:00 11:57 17:47 WBC Hgb MCV MCH Plt Count Lymph % (Auto) Lymph # Seg Neutrophils % Lymphocytes % (Manual) Monocytes % (Manual) Nucleated RBC % Seg Neutrophils # Seg Neutrophils # Man Monocytes # (Manual) PT INR Activated Clotting Time POC ABG pH POC ABG pCO2 POC ABG pO2 Sodium Potassium Chloride Carbon Dioxide BUN Creatinine Glucose POC Glucose 140 H 142 H Calcium Magnesium AST 158 H ALT 184 H Alkaline Phosphatase 170 H Total Creatine Kinase CK-MB (CK-2) CK-MB (CK-2) Rel Index Troponin T C-Reactive Protein Total Protein Albumin 2.8 L Triglycerides Ur Specific [place] 04/12/17 04/12/17 04/13/17 21:36 21:36 01:37 WBC Hgb MCV MCH Plt Count Lymph % (Auto) Lymph # Seg Neutrophils % Lymphocytes % (Manual) Monocytes % (Manual) Nucleated RBC % Seg Neutrophils # Seg Neutrophils # Man Monocytes # (Manual) PT INR Activated Clotting Time POC ABG pH POC ABG pCO2 POC ABG pO2 Sodium Potassium Chloride Carbon Dioxide BUN Creatinine Glucose POC Glucose 126 H Calcium Magnesium AST ALT Alkaline Phosphatase Total Creatine Kinase 1404 H CK-MB (CK-2) 8.0 H CK-MB (CK-2) Rel Index Troponin T 0.767 H* C-Reactive Protein Total Protein Albumin Triglycerides Ur Specific [place] 04/13/17 04/13/17 04:45 04:52 WBC Hgb MCV MCH Plt Count Lymph % (Auto) Lymph # Seg Neutrophils % Lymphocytes % (Manual) Monocytes % (Manual) Nucleated RBC % Seg Neutrophils # Seg Neutrophils # Man Monocytes # (Manual) PT INR Activated Clotting Time POC ABG pH POC ABG pCO2 POC ABG pO2 Sodium 148 H Potassium Chloride 112.8 H Carbon Dioxide BUN 33 H Creatinine 0.4 L Glucose 121 H POC Glucose 126 H Calcium Magnesium AST 160 H ALT 189 H Alkaline Phosphatase 166 H Total Creatine Kinase CK-MB (CK-2) CK-MB (CK-2) Rel Index Troponin T C-Reactive Protein Total Protein Albumin 2.6 L Triglycerides Ur Specific [place]
--- NOTE | 2017-04-13 11:00 | Progress Note ---
Assessment and Plan - Patient Problems (1) Anoxic brain injury Current Visit: Yes Status: Acute Plan to address problem: Pt stable now. Teams feels it is ok to proceed with trach/PEG tomorrow. Plavix on hold. Will place pre-op orders today. time=15min Subjective Date of service: 04/13/17 Patient Reports: Positive: other (Pt unresponsive. Nurse reports cardiac arrhythmias that are stable now with amiodarone. ) Objective Vital Signs - 12hr 04/12/17 04/12/17 04/12/17 23:00 23:25 23:44 Temperature 98.9 F Pulse Rate 87 86 Pulse Rate [ From Monitor] Pulse Rate [ Left Dorsalis Pedis] Pulse Rate [ Left Radial] Pulse Rate [ Right Dorsalis Pedis] Pulse Rate [ Right Radial] Respiratory 27 H 26 H 28 H Rate Blood Pressure 97/53 97/53 97/53 O2 Sat by Pulse 93 98 98 Oximetry 04/12/17 04/13/17 04/13/17 23:48 00:00 01:00 Temperature Pulse Rate 86 84 Pulse Rate [ 89 From Monitor] Pulse Rate [ 89 Left Dorsalis Pedis] Pulse Rate [ 89 Left Radial] Pulse Rate [ 89 Right Dorsalis Pedis] Pulse Rate [ 89 Right Radial] Respiratory 27 H 26 H 25 H Rate Blood Pressure 103/60 104/59 O2 Sat by Pulse 98 93 94 Oximetry 04/13/17 04/13/17 04/13/17 02:00 03:00 04:00 Temperature Pulse Rate 81 82 83 Pulse Rate [ From Monitor] Pulse Rate [ Left Dorsalis Pedis] Pulse Rate [ Left Radial] Pulse Rate [ Right Dorsalis Pedis] Pulse Rate [ Right Radial] Respiratory 21 22 23 Rate Blood Pressure 99/57 100/52 104/55 O2 Sat by Pulse 93 95 95 Oximetry 04/13/17 04/13/17 04/13/17 05:00 06:00 07:00 Temperature Pulse Rate 87 85 81 Pulse Rate [ From Monitor] Pulse Rate [ Left Dorsalis Pedis] Pulse Rate [ Left Radial] Pulse Rate [ Right Dorsalis Pedis] Pulse Rate [ Right Radial] Respiratory 21 22 22 Rate Blood Pressure 106/62 96/54 93/59 O2 Sat by Pulse 97 93 95 Oximetry 04/13/17 04/13/17 04/13/17 08:00 08:24 09:00 Temperature 98.9 F Pulse Rate 88 88 85 Pulse Rate [ From Monitor] Pulse Rate [ Left Dorsalis Pedis] Pulse Rate [ Left Radial] Pulse Rate [ Right Dorsalis Pedis] Pulse Rate [ Right Radial] Respiratory 24 24 Rate Blood Pressure 100/62 100/62 107/60 O2 Sat by Pulse 98 100 93 Oximetry 04/13/17 10:00 Temperature Pulse Rate 83 Pulse Rate [ From Monitor] Pulse Rate [ Left Dorsalis Pedis] Pulse Rate [ Left Radial] Pulse Rate [ Right Dorsalis Pedis] Pulse Rate [ Right Radial] Respiratory 23 Rate Blood Pressure 92/55 O2 Sat by Pulse 93 Oximetry - General physical appearance well developed, well nourished, other (unresponsive) - Respiratory normal expansion - Abdomen soft - Neurologic other (unresponsive) - Labs 04/10/17 04:16 04/13/17 04:45 Diabetes panel 04/13/17 Range/Units 04:45 Sodium 148 H (137-145) mmol/L Potassium 4.1 (3.6-5.0) mmol/L Chloride 112.8 H (98-107) mmol/L Carbon Dioxide 24 (22-30) mmol/L BUN 33 H (9-20) mg/dL Creatinine 0.4 L (0.8-1.5) mg/dL Glucose 121 H (75-100) mg/dL Calcium 8.4 (8.4-10.2) mg/dL AST 160 H (5-40) units/L ALT 189 H (7-56) units/L Alkaline Phosphatase 166 H (35-129) units/L Total Protein 6.6 (6.3-8.2) g/dL Albumin 2.6 L (3.9-5) g/dL Calcium panel 04/13/17 Range/Units 04:45 Calcium 8.4 (8.4-10.2) mg/dL Phosphorus 3.50 (2.5-4.5) mg/dL Albumin 2.6 L (3.9-5) g/dL Pituitary panel 04/13/17 Range/Units 04:45 Sodium 148 H (137-145) mmol/L Potassium 4.1 (3.6-5.0) mmol/L Chloride 112.8 H (98-107) mmol/L Carbon Dioxide 24 (22-30) mmol/L BUN 33 H (9-20) mg/dL Creatinine 0.4 L (0.8-1.5) mg/dL Glucose 121 H (75-100) mg/dL Calcium 8.4 (8.4-10.2) mg/dL Adrenal panel 04/13/17 Range/Units 04:45 Sodium 148 H (137-145) mmol/L Potassium 4.1 (3.6-5.0) mmol/L Chloride 112.8 H (98-107) mmol/L Carbon Dioxide 24 (22-30) mmol/L BUN 33 H (9-20) mg/dL Creatinine 0.4 L (0.8-1.5) mg/dL Glucose 121 H (75-100) mg/dL Calcium 8.4 (8.4-10.2) mg/dL Total Bilirubin 0.80 (0.1-1.2) mg/dL AST 160 H (5-40) units/L ALT 189 H (7-56) units/L Alkaline Phosphatase 166 H (35-129) units/L Total Protein 6.6 (6.3-8.2) g/dL Albumin 2.6 L (3.9-5) g/dL
--- NOTE | 2017-04-13 16:06 | Progress Note ---
Assessment and Plan - Patient Problems (1) Cardiac arrest Current Visit: Yes Status: Acute Plan to address problem: Out of hospital cardiac arrest due to acute anterior wall infarct, which resulted in severe anoxic encephalopathy. Due to elevation of liver enzymes, amiodarone and statin therapy were stopped. But amiodarone was resumed again last night in response to a burst of 5 beat nonsustained ventricular tachycardia. (It will also be noted that he has hypernatremia with a sodium 148). We will stop amiodarone, increase metoprolol therapy and recommend quick correction of electrolyte abnormalities including hypernatremia. (2) STEMI (ST elevation myocardial infarction) Current Visit: Yes Status: Acute Qualifiers: Involved coronary artery: LAD coronary artery Qualified Code(s): I21.02 - ST elevation (STEMI) myocardial infarction involving left anterior descending coronary artery Plan to address problem: ST elevation myocardial infarction was treated with primary angioplasty and stenting of the LAD. Subjective Date of service: 04/13/17 Principal diagnosis: septic shock Interval history: Patient is unresponsive, and event. On awake overnight monitor, stable sinus rhythm. Objective Vital Signs Temp Pulse Pulse Pulse Pulse Pulse Pulse 04/13/17 15:38 91 H 04/13/17 13:00 79 04/13/17 12:21 80 04/13/17 12:00 98.4 F 86 04/13/17 11:00 82 04/13/17 10:00 83 04/13/17 09:00 85 04/13/17 08:24 88 04/13/17 08:00 98.9 F 88 04/13/17 07:00 81 04/13/17 06:00 85 04/13/17 05:00 87 04/13/17 04:00 83 04/13/17 03:00 82 04/13/17 02:00 81 04/13/17 01:00 84 04/13/17 00:00 86 04/12/17 23:48 89 89 89 89 89 04/12/17 23:44 98.9 F 04/12/17 23:25 86 04/12/17 23:00 87 04/12/17 22:00 94 H 04/12/17 21:30 94 H 04/12/17 21:00 95 H 04/12/17 20:00 101.1 F H 102 H 110 H 110 H 110 H 110 H 110 H 04/12/17 19:00 101 H 04/12/17 18:23 105 H 04/12/17 18:00 104 H 04/12/17 17:00 94 H 04/12/17 16:00 94 H Resp BP Pulse Ox 04/13/17 15:38 115/68 99 04/13/17 13:00 22 101/60 94 04/13/17 12:21 103/70 99 04/13/17 12:00 25 H 103/70 89 04/13/17 11:00 22 108/59 93 04/13/17 10:00 23 92/55 93 04/13/17 09:00 24 107/60 93 04/13/17 08:24 100/62 100 04/13/17 08:00 24 100/62 98 04/13/17 07:00 22 93/59 95 04/13/17 06:00 22 96/54 93 04/13/17 05:00 21 106/62 97 04/13/17 04:00 23 104/55 95 04/13/17 03:00 22 100/52 95 04/13/17 02:00 21 99/57 93 04/13/17 01:00 25 H 104/59 94 04/13/17 00:00 26 H 103/60 93 04/12/17 23:48 27 H 98 04/12/17 23:44 28 H 97/53 98 04/12/17 23:25 26 H 97/53 98 04/12/17 23:00 27 H 97/53 93 04/12/17 22:00 30 H 112/65 95 04/12/17 21:30 97/70 98 04/12/17 21:00 30 H 109/64 93 18 20:00 29 H 112/65 98 18 19:00 29 H 101/65 92 18 18:23 116/71 97 18 18:00 31 H 115/66 97 18 17:00 29 H 115/66 94 04/12/17 16:00 29 H 121/64 93 - Physical Examination General: Other (unresponsive on the vent) HEENT: Positive: Other (unresponsive, vent) Neck: Positive: neck supple, trachea midline. Negative: JVD/HJR Cardiac: Positive: Reg Rate and Rhythm Lungs: Positive: Decreased Breath Sounds Neuro: Positive: Other (unresponsive post VF arrest) Abdomen: Positive: Soft, Active Bowel Sounds Skin: Positive: Clear Extremities: Absent: edema - Labs and Meds Cardiac Enzymes 04/12/17 04/13/17 Range/Units 21:36 04:45 AST 160 H (5-40) units/L CK-MB (CK-2) 8.0 H (0.0-4.0) ng/mL Comprehensive Metabolic Panel 04/13/17 Range/Units 04:45 Sodium 148 H (137-145) mmol/L Potassium 4.1 (3.6-5.0) mmol/L Chloride 112.8 H (98-107) mmol/L Carbon Dioxide 24 (22-30) mmol/L BUN 33 H (9-20) mg/dL Creatinine 0.4 L (0.8-1.5) mg/dL Glucose 121 H (75-100) mg/dL Calcium 8.4 (8.4-10.2) mg/dL AST 160 H (5-40) units/L ALT 189 H (7-56) units/L Alkaline Phosphatase 166 H (35-129) units/L Total Protein 6.6 (6.3-8.2) g/dL Albumin 2.6 L (3.9-5) g/dL
[2017-04-13] MEDS: TYLENOL PO PRN (19:56)
--- NOTE | 2017-04-13 20:09 | Progress Note ---
Assessment and Plan Assessment and plan: 46 YO Male with No PMH presents to ED for evaluation. Pt is unresponsive and unable to provide history. Pt history taken from ED staff and EMS. Pt was at work and suddenly passed out around 1050 hrs-which was witnessed by patients coworkers. EMS notified, and upon arrival the patient was found to have V Fib. Pt treated IAW ACLS protocol. The patient was given 3 defibrillations, 2 rounds of epinephrine, Narcan, and a half amp of sodium bicarbonate. Pt found to be in respiratory distress and was intubated and placed on vent support. 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 --Acute hypoxic respiratory failure; vent dependent Plavix now on hold, Trach and Peg scheduled for Monday, pulmonary surgery following --Status post cardiac arrest: Status post CPR, unresponsive, supportive care --Anoxic brain injury; patient has been off sedation and still obtunded and nonresponsive. Poor prognosis, family aware, trach and PEG on Monday --Acute anterior STEMI ; status post PCI Cardiology following , continue current cardiac medications --Hypertension ; closely monitor , continue current antihypertensives and when necessary medications --MRSA pneumonia /aspiration pneumonia contact isolation, ID following completed zyvox on 04/10 --Cardiogenic shock; resolved Currently off pressors, closely monitor --Hypokalemia /hypernatremia Corrected --DC planning. Case management Possible SNF versus rehabilitation unable to go to [facility]ACH as has no insurance medicare disability application in process of being filled out by family family is hoping to take him home on vent/peg tube and have his sister care for him Consults and recommendations noted and appreciated Critical care time 31 minutes The high probability of a clinically significant, sudden or life threatening deterioration of the [Pulmonary, cardiac, renal] system(s) required my full and direct attention, intervention and personal management. The aggregate critical care time was [31] minutes. This time is in addition to time spent performing reported procedures but includes the following: [x] Data Review and interpretation [x] Patient assessment and monitoring of vital signs [x] Documentation [x] Medication orders and management History Interval history: Patient seen and examined Medical records reviewed Patient remains intubated on ventilatory support, scheduled for tracheostomy tomorrow No new events reported by nursing staff Febrile MAXIMUM TEMPERATURE 101.1, new blood cultures sent, patient already received 1 week of Zyvox Hospitalist Physical - Constitutional Vitals: Temp Pulse Resp BP Pulse Ox 99.2 F 91 H 22 115/68 99 04/13/17 16:00 04/13/17 15:38 04/13/17 13:00 04/13/17 15:38 04/13/17 16:00 General appearance: Present: no acute distress, well-nourished, other ( intubated on ventilatory support) - EENT Eyes: Present: PERRL, EOM intact - Neck Neck: Present: supple, normal ROM - Respiratory Respiratory effort: normal Respiratory: bilateral: diminished, rhonchi, negative: rales, wheezing - Cardiovascular Rhythm: regular Heart Sounds: Present: S1 & S2 - Extremities Extremities: no ischemia, No edema Extremity abnormal: edema - Abdominal General gastrointestinal: soft, non-tender, non-distended, normal bowel sounds - Integumentary Integumentary: Present: clear, warm - Psychiatric Psychiatric: other (noncommunicative) - Neurologic Neurologic: other (intubated and sedated) Results - Labs CBC & Chem 7: 04/10/17 04:16 04/13/17 04:45 Labs: Laboratory Last Values WBC 10.8 K/mm3 (4.5-11.0) 04/10/17 04:16 RBC 3.70 M/mm3 (3.65-5.03) 04/10/17 04:16 Hgb 11.5 gm/dl (11.8-15.2) L 04/10/17 04:16 Hct 35.5 % (35.5-45.6) 04/10/17 04:16 MCV 96 fl (84-94) H 04/10/17 04:16 MCH 31 pg (28-32) 04/10/17 04:16 MCHC 32 % (32-34) 04/10/17 04:16 RDW 14.4 % (13.2-15.2) 04/10/17 04:16 Plt Count 103 K/mm3 (140-440) L 04/10/17 04:16 Lymph % (Auto) 11.1 % (13.4-35.0) L 04/10/17 04:16 [place] % (Auto) 5.1 % (0.0-7.3) 04/10/17 04:16 Eos % (Auto) 2.0 % (0.0-4.3) 04/10/17 04:16 Baso % (Auto) 0.3 % (0.0-1.8) 04/10/17 04:16 Lymph # 1.2 K/mm3 (1.2-5.4) 04/10/17 04:16 [place] # 0.5 K/mm3 (0.0-0.8) 04/10/17 04:16 Eos # 0.2 K/mm3 (0.0-0.4) 04/10/17 04:16 Baso # 0.0 K/mm3 (0.0-0.1) 04/10/17 04:16 Add Manual Diff Complete 03/30/17 03:50 Total Counted 100 03/30/17 03:50 Seg Neutrophils % 81.5 % (40.0-70.0) H 04/10/17 04:16 Seg Neuts % (Manual) 65.0 % (40.0-70.0) 03/30/17 03:50 Band Neutrophils % 17.0 % 03/30/17 03:50 Lymphocytes % (Manual) 7.0 % (13.4-35.0) L 03/30/17 03:50 Reactive Lymphs % (Man) 0 % 03/30/17 03:50 Monocytes % (Manual) 7.0 % (0.0-7.3) 03/30/17 03:50 Eosinophils % (Manual) 0 % (0.0-4.3) 03/30/17 03:50 Basophils % (Manual) 0 % (0.0-1.8) 03/30/17 03:50 Metamyelocytes % 4.0 % 03/30/17 03:50 Myelocytes % 0 % 03/30/17 03:50 Promyelocytes % 0 % 03/30/17 03:50 Blast Cells % 0 % 03/30/17 03:50 Nucleated RBC % Not Reportable 03/30/17 03:50 Seg Neutrophils # 8.8 K/mm3 (1.8-7.7) H 04/10/17 04:16 Seg Neutrophils # Man 12.7 K/mm3 (1.8-7.7) H 03/30/17 03:50 Band Neutrophils # 3.3 K/mm3 03/30/17 03:50 Lymphocytes # (Manual) 1.4 K/mm3 (1.2-5.4) 03/30/17 03:50 Abs React Lymphs (Man) 0.0 K/mm3 03/30/17 03:50 Monocytes # (Manual) 1.4 K/mm3 (0.0-0.8) H 03/30/17 03:50 Eosinophils # (Manual) 0.0 K/mm3 (0.0-0.4) 03/30/17 03:50 Basophils # (Manual) 0.0 K/mm3 (0.0-0.1) 03/30/17 03:50 Metamyelocytes # 0.8 K/mm3 03/30/17 03:50 Myelocytes # 0.0 K/mm3 03/30/17 03:50 Promyelocytes # 0.0 K/mm3 03/30/17 03:50 Blast Cells # 0.0 K/mm3 03/30/17 03:50 WBC Morphology Not Reportable 03/30/17 03:50 Hypersegmented Neuts Not Reportable 03/30/17 03:50 Hyposegmented Neuts Not Reportable 03/30/17 03:50 Hypogranular Neuts Not Reportable 03/30/17 03:50 Smudge Cells Not Reportable 03/30/17 03:50 Toxic Granulation Not Reportable 03/30/17 03:50 Toxic Vacuolation Not Reportable 03/30/17 03:50 Dohle Bodies Not Reportable 03/30/17 03:50 Pelger-Huet Anomaly Not Reportable 03/30/17 03:50 Sherry Rods Not Reportable 03/30/17 03:50 Platelet Estimate Appears normal 03/30/17 03:50 Clumped Platelets Not Reportable 03/30/17 03:50 Plt Clumps, EDTA Not Reportable 03/30/17 03:50 Large Platelets Not Reportable 03/30/17 03:50 Giant Platelets Not Reportable 03/30/17 03:50 Platelet Satelliting Not Reportable 03/30/17 03:50 Plt Morphology Comment Not Reportable 03/30/17 03:50 RBC Morphology Not Reportable 03/30/17 03:50 Dimorphic RBCs Not Reportable 03/30/17 03:50 Polychromasia Not Reportable 03/30/17 03:50 Hypochromasia Not Reportable 03/30/17 03:50 Poikilocytosis Not Reportable 03/30/17 03:50 Anisocytosis Few 03/30/17 03:50 Microcytosis Not Reportable 03/30/17 03:50 Macrocytosis Not Reportable 03/30/17 03:50 Spherocytes Not Reportable 03/30/17 03:50 Pappenheimer Bodies Not Reportable 03/30/17 03:50 Sickle Cells Not Reportable 03/30/17 03:50 Target Cells Not Reportable 03/30/17 03:50 Tear Drop Cells Not Reportable 03/30/17 03:50 Ovalocytes Not Reportable 03/30/17 03:50 Helmet Cells Not Reportable 03/30/17 03:50 Tamayo-Melwood Bodies Not Reportable 03/30/17 03:50 [place] Rings Not Reportable 03/30/17 03:50 Nusrat Cells Not Reportable 03/30/17 03:50 Bite Cells Not Reportable 03/30/17 03:50 Crenated Cell Not Reportable 03/30/17 03:50 Elliptocytes Not Reportable 03/30/17 03:50 Acanthocytes (Spur) Not Reportable 03/30/17 03:50 Rouleaux Not Reportable 03/30/17 03:50 Hemoglobin C Crystals Not Reportable 03/30/17 03:50 Schistocytes Not Reportable 03/30/17 03:50 Malaria parasites Not Reportable 03/30/17 03:50 Jermaine Bodies Not Reportable 03/30/17 03:50 Hem Pathologist Commnt No 03/30/17 03:50 PT 14.9 Sec. (12.2-14.9) 04/10/17 04:16 INR 1.11 (0.87-1.13) 04/10/17 04:16 APTT 27.8 Sec. (24.2-36.6) 04/10/17 04:16 Activated Clotting Time 92 (74-137) 03/29/17 17:47 POC ABG pH 7.517 (7.35-7.45) H 04/07/17 11:45 POC ABG pCO2 32.1 (35-45) L 04/07/17 11:45 POC ABG pO2 93 (80-105) 04/07/17 11:45 POC ABG HCO3 26.0 04/07/17 11:45 POC ABG Total CO2 27 04/07/17 11:45 POC ABG O2 Sat 98 04/07/17 11:45 POC ABG Base Excess 3 04/07/17 11:45 FiO2 35 % 04/07/17 11:45 Sodium 148 mmol/L (137-145) H 04/13/17 04:45 Potassium 4.1 mmol/L (3.6-5.0) 04/13/17 04:45 Chloride 112.8 mmol/L (98-107) H 04/13/17 04:45 Carbon Dioxide 24 mmol/L (22-30) 04/13/17 04:45 Anion Gap 15 mmol/L 04/13/17 04:45 BUN 33 mg/dL (9-20) H 04/13/17 04:45 Creatinine 0.4 mg/dL (0.8-1.5) L 04/13/17 04:45 Estimated GFR > 60 ml/min 04/13/17 04:45 BUN/Creatinine Ratio 83 % 04/13/17 04:45 Glucose 121 mg/dL (75-100) H 04/13/17 04:45 POC Glucose 126 (70-105) H 04/13/17 04:52 Calcium 8.4 mg/dL (8.4-10.2) 04/13/17 04:45 Phosphorus 3.50 mg/dL (2.5-4.5) 04/13/17 04:45 Magnesium 2.30 mg/dL (1.7-2.3) 04/13/17 04:45 Total Bilirubin 0.80 mg/dL (0.1-1.2) 04/13/17 04:45 Direct Bilirubin 0.2 mg/dL (0-0.2) 04/12/17 05:00 Indirect Bilirubin 0.5 mg/dL 04/12/17 05:00 AST 160 units/L (5-40) H 04/13/17 04:45 ALT 189 units/L (7-56) H 04/13/17 04:45 Alkaline Phosphatase 166 units/L (35-129) H 04/13/17 04:45 Total Creatine Kinase 1404 units/L (55-170) H 04/12/17 21:36 CK-MB (CK-2) 8.0 ng/mL (0.0-4.0) H 04/12/17 21:36 CK-MB (CK-2) Rel Index 0.5 (0-4) 04/12/17 21:36 Troponin T 0.767 ng/mL (0.00-0.029) H* 04/12/17 21:36 C-Reactive Protein 21.80 mg/dL (0.00-1.30) H 03/30/17 16:04 Total Protein 6.6 g/dL (6.3-8.2) 04/13/17 04:45 Albumin 2.6 g/dL (3.9-5) L 04/13/17 04:45 Albumin/Globulin Ratio 0.7 % 04/13/17 04:45 Triglycerides 151 mg/dL (2-149) H 04/01/17 04:29 Cholesterol 164 mg/dL (50-199) 03/29/17 19:52 LDL Cholesterol Direct 81 mg/dL (50-130) 03/29/17 19:52 HDL Cholesterol 44 mg/dL (40-59) 03/29/17 19:52 Cholesterol/HDL Ratio 3.72 % 03/29/17 19:52 Urine Color Yellow (Yellow) 03/30/17 09:45 Urine Turbidity Turbid (Clear) 03/30/17 09:45 Urine pH 5.0 (5.0-7.0) 03/30/17 09:45 Ur Specific [place] 1.031 (1.003-1.030) H 03/30/17 09:45 Urine Protein 30 mg/dl mg/dL (Negative) 03/30/17 09:45 Urine Glucose (UA) Neg mg/dL (Negative) 03/30/17 09:45 Urine Ketones 20 mg/dL (Negative) 03/30/17 09:45 Urine Blood Mod (Negative) 03/30/17 09:45 Urine Nitrite Neg (Negative) 03/30/17 09:45 Urine Bilirubin Neg (Negative) 03/30/17 09:45 Urine Urobilinogen < 2.0 mg/dL (<2.0) 03/30/17 09:45 Ur Leukocyte Esterase Tr (Negative) 03/30/17 09:45 Urine WBC (Auto) 1.0 /HPF (0.0-6.0) 03/30/17 09:45 Urine RBC (Auto) 14.0 /HPF (0.0-6.0) 03/30/17 09:45 Amorphous Crystals 1+ 03/30/17 09:45 Urine Opiates Screen Presumptive negative 03/30/17 09:45 Urine Methadone Screen Presumptive negative 03/30/17 09:45 Ur Barbiturates Screen Presumptive negative 03/30/17 09:45 Ur Phencyclidine Scrn Presumptive negative 03/30/17 09:45 Ur Amphetamines Screen Presumptive positive 03/30/17 09:45 U Benzodiazepines Scrn Presumptive positive 03/30/17 09:45 Urine Cocaine Screen Presumptive negative 03/30/17 09:45 U Marijuana (THC) Screen Presumptive negative 03/30/17 09:45 Drugs of Abuse Note Disclamer 03/30/17 09:45 Blood Type O POSITIVE 03/29/17 11:35 Antibody Screen Negative 03/29/17 11:35
[2017-04-14] MEDS: LOPRESSOR PO SCH ×4 (07:59→17:19)
[2017-04-14] MEDS: NITRO DUR TD SCH (08:00)
[2017-04-14] MEDS: PROTONIX FEEDTUBE SCH (09:59)
[2017-04-14] MEDS: ASPIRIN PO SCH (09:59)
[2017-04-14] MEDS: COLACE FEEDTUBE SCH (09:59)
[2017-04-14] MEDS: ZESTRIL PO SCH (09:59)
--- NOTE | 2017-04-14 10:28 | Progress Note ---
Assessment and Plan Out of hospital VF arrest Acute anterior STEMI s/p PCI of the LAD using BM stents deployed. reduced LVEF 30-35% by echocardiogram. Respiratory failure intubated on the vent Anoxic brain injury Pneumonia: MRSA Elevated Transaminitis Conservative cardiac management. Subjective Date of service: 04/14/17 Principal diagnosis: septic shock Interval history: Patient remains intubated, unresponsive on the vent. Plavix held, awaits PEG and trach. Objective Vital Signs Temp Pulse Pulse Pulse Resp Resp BP 04/14/17 09:59 95 H 98/58 04/14/17 09:50 95 H 107/59 04/14/17 08:00 100.9 F H 95 H 95 H 25 H 102/56 04/14/17 07:00 97 H 30 H 109/58 04/14/17 06:48 100.6 F H 04/14/17 06:00 97 H 45 H 103/62 04/14/17 05:11 99 H 116/63 04/14/17 05:00 95 H 56 H 116/63 04/14/17 04:00 100.6 F H 95 H 31 H 109/64 04/14/17 03:00 90 26 H 107/60 04/14/17 02:00 85 25 H 100/63 04/14/17 01:00 85 26 H 106/62 04/14/17 00:00 99.9 F H 83 24 106/62 04/13/17 23:45 89 97/62 04/13/17 23:00 90 26 H 108/55 04/13/17 22:00 98 H 27 H 108/55 04/13/17 21:56 91 H 28 H 04/13/17 21:01 98 H 36 H 112/53 04/13/17 20:20 95 H 112/53 04/13/17 20:00 144 F H 97 H 35 H 112/72 04/13/17 19:00 101.2 F H 90 33 H 100/69 04/13/17 18:00 91 H 27 H 110/74 04/13/17 17:00 87 26 H 116/69 04/13/17 16:00 99.2 F 89 27 H 112/72 04/13/17 15:38 91 H 115/68 04/13/17 15:00 89 26 H 115/68 04/13/17 14:00 83 22 108/69 04/13/17 13:27 82 23 101/60 04/13/17 13:00 79 22 101/60 04/13/17 12:21 80 103/70 04/13/17 12:00 98.4 F 86 25 H 103/70 04/13/17 11:00 82 22 108/59 Pulse Ox 04/14/17 09:59 04/14/17 09:50 95 04/14/17 08:00 92 04/14/17 07:00 93 04/14/17 06:48 04/14/17 06:00 96 04/14/17 05:11 98 04/14/17 05:00 95 04/14/17 04:00 96 04/14/17 03:00 95 04/14/17 02:00 04/14/17 01:00 94 04/14/17 00:00 98 04/13/17 23:45 98 04/13/17 23:00 97 04/13/17 22:00 93 04/13/17 21:56 04/13/17 21:01 96 04/13/17 20:20 98 04/13/17 20:00 95 04/13/17 19:00 95 04/13/17 18:00 96 04/13/17 17:00 94 04/13/17 16:00 98 04/13/17 15:38 99 04/13/17 15:00 87 04/13/17 14:00 95 04/13/17 13:27 99 04/13/17 13:00 94 04/13/17 12:21 99 04/13/17 12:00 89 04/13/17 11:00 93 - Physical Examination General: Other (unresponsive on the vent) Cardiac: Positive: Reg Rate and Rhythm Neuro: Positive: Other (unresponsive post VF arrest) Abdomen: Positive: Soft, Active Bowel Sounds Skin: Positive: Clear Extremities: Absent: edema
--- NOTE | 2017-04-14 10:44 | Progress Note ---
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 Cultures x2, urine and follow up CXR. Does have MRSA in tracheal aspirate but this was treated with zyvox previously. Trach and pEG today. Restart plavix after trach and peg placed. Cards has already ordered this. Follow up repeat LFT's on tomorrow morning 1. Plavix now on hold, awaiting PEG and Trach 2. Trach and Peg scheduled for Monday, tomorrow 3. Continue vent support and management 4. Continue all other cardiac meds 5. Back on Amio, statin off. Continue to monitor LFT's. If increasing, shaheen will likely need another anti-arrhythmic 6. Overall prognosis still remains poor given amount of downtime during arrest. Per neuro notes, they have discussed this with a brother. Maybe they need to reach to Divya and Hope, the sisters, as those are the ones who have been designated by family at [employer]. CCT 31 minutes. Subjective Date of service: 04/14/17 Principal diagnosis: septic shock Interval history: Still spiking temps. Was not cultured yesterday but cultured today. CXR ordered for today as well. Mental status has unchanged. Objective Vital Signs - 12hr 04/13/17 04/13/17 04/14/17 23:00 23:45 00:00 Temperature 99.9 F H Pulse Rate 90 89 83 Pulse Rate [ From Monitor] Respiratory 26 H 24 Rate Blood Pressure 108/55 97/62 106/62 O2 Sat by Pulse 97 98 98 Oximetry 04/14/17 04/14/17 04/14/17 01:00 02:00 03:00 Temperature Pulse Rate 85 85 90 Pulse Rate [ From Monitor] Respiratory 26 H 25 H 26 H Rate Blood Pressure 106/62 100/63 107/60 O2 Sat by Pulse 94 95 Oximetry 04/14/17 04/14/17 04/14/17 04:00 05:00 05:11 Temperature 100.6 F H Pulse Rate 95 H 95 H 99 H Pulse Rate [ From Monitor] Respiratory 31 H 56 H Rate Blood Pressure 109/64 116/63 116/63 O2 Sat by Pulse 96 95 98 Oximetry 04/14/17 04/14/17 04/14/17 06:00 06:48 07:00 Temperature 100.6 F H Pulse Rate 97 H 97 H Pulse Rate [ From Monitor] Respiratory 45 H 30 H Rate Blood Pressure 103/62 109/58 O2 Sat by Pulse 96 93 Oximetry 04/14/17 04/14/17 04/14/17 08:00 09:50 09:59 Temperature 100.9 F H Pulse Rate 95 H 95 H 95 H Pulse Rate [ 95 H From Monitor] Respiratory 25 H Rate Blood Pressure 102/56 107/59 98/58 O2 Sat by Pulse 92 95 Oximetry Constitutional: comatose Eyes: injected, other (pinpoint pupils equal and non reactive) ENT: other (orally intubated, ) Neck: supple, no JVD Effort: normal Ascultation: Bilateral: clear, diminished breath sounds ( ) Percussion: Bilateral: not dull Cardiovascular: regular rate and rhythm Gastrointestinal: hypoactive bowel sounds, other (mild distention) Integumentary: other (multiple tattoos) Extremities: no cyanosis Neurologic: unable to assess, other (no posturing on physical examination and stimulation,irregular breathing) CBC and BMP: 04/10/17 04:16 04/13/17 04:45 ABG, PT/INR, D-dimer: ABG POC ABG pH 7.517 (7.35-7.45) H 04/07/17 11:45 POC ABG pCO2 32.1 (35-45) L 04/07/17 11:45 POC ABG pO2 93 (80-105) 04/07/17 11:45 POC ABG HCO3 26.0 04/07/17 11:45 POC ABG Total CO2 27 04/07/17 11:45 POC ABG O2 Sat 98 04/07/17 11:45 PT/INR, D-dimer PT 14.9 Sec. (12.2-14.9) 04/10/17 04:16 INR 1.11 (0.87-1.13) 04/10/17 04:16 Abnormal lab findings: Abnormal Labs 03/29/17 03/29/17 03/29/17 11:35 11:35 11:40 WBC Hgb MCV 98 H MCH 33 H Plt Count Lymph % (Auto) Lymph # Seg Neutrophils % Lymphocytes % (Manual) Monocytes % (Manual) 9.0 H Nucleated RBC % 1.0 H Seg Neutrophils # Seg Neutrophils # Man Monocytes # (Manual) 0.9 H PT 15.8 H INR 1.20 H Activated Clotting Time POC ABG pH POC ABG pCO2 POC ABG pO2 Sodium Potassium 2.7 L* Chloride 95.3 L Carbon Dioxide 17 L BUN Creatinine Glucose 435 H POC Glucose Calcium Magnesium AST ALT Alkaline Phosphatase Total Creatine Kinase CK-MB (CK-2) CK-MB (CK-2) Rel Index Troponin T C-Reactive Protein Total Protein 6.1 L Albumin 3.5 L Triglycerides Ur Specific Webber 03/29/17 03/29/17 03/29/17 12:34 13:10 13:25 WBC Hgb MCV MCH Plt Count Lymph % (Auto) Lymph # Seg Neutrophils % Lymphocytes % (Manual) Monocytes % (Manual) Nucleated RBC % Seg Neutrophils # Seg Neutrophils # Man Monocytes # (Manual) PT INR Activated Clotting Time 142 H 169 H 175 H POC ABG pH POC ABG pCO2 POC ABG pO2 Sodium Potassium Chloride Carbon Dioxide BUN Creatinine Glucose POC Glucose Calcium Magnesium AST ALT Alkaline Phosphatase Total Creatine Kinase CK-MB (CK-2) CK-MB (CK-2) Rel Index Troponin T C-Reactive Protein Total Protein Albumin Triglycerides Ur Specific Webber 03/29/17 03/29/17 03/29/17 14:50 15:18 19:52 WBC Hgb MCV MCH Plt Count Lymph % (Auto) Lymph # Seg Neutrophils % Lymphocytes % (Manual) Monocytes % (Manual) Nucleated RBC % Seg Neutrophils # Seg Neutrophils # Man Monocytes # (Manual) PT INR Activated Clotting Time 175 H POC ABG pH 7.293 L POC ABG pCO2 POC ABG pO2 602 H Sodium Potassium Chloride Carbon Dioxide BUN Creatinine Glucose POC Glucose Calcium Magnesium AST ALT Alkaline Phosphatase Total Creatine Kinase 7263 H CK-MB (CK-2) > 300.0 H CK-MB (CK-2) Rel Index 4.1 H Troponin T 8.080 H* D C-Reactive Protein Total Protein Albumin Triglycerides 195 H Ur Specific Webber 03/30/17 03/30/17 03/30/17 03:50 03:50 06:19 WBC 19.5 H Hgb MCV MCH Plt Count Lymph % (Auto) Lymph # Seg Neutrophils % Lymphocytes % (Manual) 7.0 L Monocytes % (Manual) Nucleated RBC % Seg Neutrophils # Seg Neutrophils # Man 12.7 H Monocytes # (Manual) 1.4 H PT INR Activated Clotting Time POC ABG pH POC ABG pCO2 28.2 L POC ABG pO2 108 H Sodium Potassium Chloride 108.9 H Carbon Dioxide 15 L BUN 25 H Creatinine Glucose 158 H POC Glucose Calcium 8.1 L Magnesium AST ALT Alkaline Phosphatase Total Creatine Kinase 7963 H CK-MB (CK-2) > 300.0 H CK-MB (CK-2) Rel Index Troponin T 6.850 H* C-Reactive Protein Total Protein Albumin Triglycerides Ur Specific Webber 03/30/17 03/30/17 03/31/17 09:45 16:04 02:19 WBC Hgb MCV MCH Plt Count Lymph % (Auto) Lymph # Seg Neutrophils % Lymphocytes % (Manual) Monocytes % (Manual) Nucleated RBC % Seg Neutrophils # Seg Neutrophils # Man Monocytes # (Manual) PT INR Activated Clotting Time POC ABG pH POC ABG pCO2 POC ABG pO2 Sodium Potassium Chloride Carbon Dioxide BUN Creatinine Glucose POC Glucose 137 H Calcium Magnesium AST ALT Alkaline Phosphatase Total Creatine Kinase CK-MB (CK-2) CK-MB (CK-2) Rel Index Troponin T C-Reactive Protein 21.80 H Total Protein Albumin Triglycerides Ur Specific Webber 1.031 H 03/31/17 03/31/17 03/31/17 03:57 06:54 09:22 WBC Hgb MCV MCH Plt Count Lymph % (Auto) Lymph # Seg Neutrophils % Lymphocytes % (Manual) Monocytes % (Manual) Nucleated RBC % Seg Neutrophils # Seg Neutrophils # Man Monocytes # (Manual) PT INR Activated Clotting Time POC ABG pH 7.475 H POC ABG pCO2 25.4 L POC ABG pO2 62 L Sodium Potassium Chloride Carbon Dioxide 19 L BUN 22 H Creatinine 0.6 L Glucose 148 H POC Glucose 143 H Calcium 8.3 L Magnesium AST ALT Alkaline Phosphatase Total Creatine Kinase CK-MB (CK-2) CK-MB (CK-2) Rel Index Troponin T C-Reactive Protein Total Protein Albumin Triglycerides Ur Specific Webber 03/31/17 03/31/17 03/31/17 11:40 17:47 23:38 WBC Hgb MCV MCH Plt Count Lymph % (Auto) Lymph # Seg Neutrophils % Lymphocytes % (Manual) Monocytes % (Manual) Nucleated RBC % Seg Neutrophils # Seg Neutrophils # Man Monocytes # (Manual) PT INR Activated Clotting Time POC ABG pH POC ABG pCO2 POC ABG pO2 Sodium Potassium Chloride Carbon Dioxide BUN Creatinine Glucose POC Glucose 127 H 137 H 148 H Calcium Magnesium AST ALT Alkaline Phosphatase Total Creatine Kinase CK-MB (CK-2) CK-MB (CK-2) Rel Index Troponin T C-Reactive Protein Total Protein Albumin Triglycerides Ur Specific Webber 04/01/17 04/01/17 04/01/17 04:29 05:01 11:54 WBC Hgb MCV MCH Plt Count Lymph % (Auto) Lymph # Seg Neutrophils % Lymphocytes % (Manual) Monocytes % (Manual) Nucleated RBC % Seg Neutrophils # Seg Neutrophils # Man Monocytes # (Manual) PT INR Activated Clotting Time POC ABG pH 7.513 H POC ABG pCO2 22.1 L POC ABG pO2 64 L Sodium Potassium Chloride Carbon Dioxide BUN Creatinine Glucose POC Glucose 121 H Calcium Magnesium AST ALT Alkaline Phosphatase Total Creatine Kinase CK-MB (CK-2) CK-MB (CK-2) Rel Index Troponin T C-Reactive Protein Total Protein Albumin Triglycerides 151 H Ur Specific Webber 04/01/17 04/02/17 04/02/17 18:17 00:11 04:52 WBC Hgb MCV MCH Plt Count Lymph % (Auto) Lymph # Seg Neutrophils % Lymphocytes % (Manual) Monocytes % (Manual) Nucleated RBC % Seg Neutrophils # Seg Neutrophils # Man Monocytes # (Manual) PT INR Activated Clotting Time POC ABG pH 7.524 H POC ABG pCO2 25.5 L POC ABG pO2 66 L Sodium Potassium Chloride Carbon Dioxide BUN Creatinine Glucose POC Glucose 117 H 122 H Calcium Magnesium AST ALT Alkaline Phosphatase Total Creatine Kinase CK-MB (CK-2) CK-MB (CK-2) Rel Index Troponin T C-Reactive Protein Total Protein Albumin Triglycerides Ur Specific Webber 04/02/17 04/02/17 04/02/17 05:18 10:41 12:19 WBC Hgb MCV MCH Plt Count Lymph % (Auto) Lymph # Seg Neutrophils % Lymphocytes % (Manual) Monocytes % (Manual) Nucleated RBC % Seg Neutrophils # Seg Neutrophils # Man Monocytes # (Manual) PT INR Activated Clotting Time POC ABG pH 7.534 H POC ABG pCO2 27.4 L POC ABG pO2 Sodium Potassium Chloride Carbon Dioxide BUN Creatinine Glucose POC Glucose 132 H 129 H Calcium Magnesium AST ALT Alkaline Phosphatase Total Creatine Kinase CK-MB (CK-2) CK-MB (CK-2) Rel Index Troponin T C-Reactive Protein Total Protein Albumin Triglycerides Ur Specific Webber 04/02/17 04/03/17 04/03/17 18:05 00:08 05:09 WBC Hgb MCV MCH Plt Count Lymph % (Auto) Lymph # Seg Neutrophils % Lymphocytes % (Manual) Monocytes % (Manual) Nucleated RBC % Seg Neutrophils # Seg Neutrophils # Man Monocytes # (Manual) PT INR Activated Clotting Time POC ABG pH 7.455 H POC ABG pCO2 33.2 L POC ABG pO2 120 H Sodium Potassium Chloride Carbon Dioxide BUN Creatinine Glucose POC Glucose 136 H 128 H Calcium Magnesium AST ALT Alkaline Phosphatase Total Creatine Kinase CK-MB (CK-2) CK-MB (CK-2) Rel Index Troponin T C-Reactive Protein Total Protein Albumin Triglycerides Ur Specific Webber 04/03/17 04/03/17 04/03/17 06:32 11:54 12:16 WBC 11.9 H Hgb MCV MCH Plt Count 125 L Lymph % (Auto) 4.8 L Lymph # 0.6 L Seg Neutrophils % 86.7 H Lymphocytes % (Manual) Monocytes % (Manual) Nucleated RBC % Seg Neutrophils # 10.3 H Seg Neutrophils # Man Monocytes # (Manual) PT INR Activated Clotting Time POC ABG pH POC ABG pCO2 POC ABG pO2 Sodium Potassium Chloride Carbon Dioxide BUN Creatinine Glucose POC Glucose 138 H 143 H Calcium Magnesium AST ALT Alkaline Phosphatase Total Creatine Kinase CK-MB (CK-2) CK-MB (CK-2) Rel Index Troponin T C-Reactive Protein Total Protein Albumin Triglycerides Ur Specific Webber 04/03/17 04/03/17 04/04/17 17:33 23:59 04:34 WBC Hgb MCV MCH Plt Count Lymph % (Auto) Lymph # Seg Neutrophils % Lymphocytes % (Manual) Monocytes % (Manual) Nucleated RBC % Seg Neutrophils # Seg Neutrophils # Man Monocytes # (Manual) PT INR Activated Clotting Time POC ABG pH 7.457 H POC ABG pCO2 29.8 L POC ABG pO2 76 L Sodium Potassium Chloride Carbon Dioxide BUN Creatinine Glucose POC Glucose 130 H 155 H Calcium Magnesium AST ALT Alkaline Phosphatase Total Creatine Kinase CK-MB (CK-2) CK-MB (CK-2) Rel Index Troponin T C-Reactive Protein Total Protein Albumin Triglycerides Ur Specific Webber 04/04/17 04/04/17 04/04/17 05:27 12:22 18:18 WBC Hgb MCV MCH Plt Count Lymph % (Auto) Lymph # Seg Neutrophils % Lymphocytes % (Manual) Monocytes % (Manual) Nucleated RBC % Seg Neutrophils # Seg Neutrophils # Man Monocytes # (Manual) PT INR Activated Clotting Time POC ABG pH POC ABG pCO2 POC ABG pO2 Sodium Potassium Chloride Carbon Dioxide BUN Creatinine Glucose POC Glucose 164 H 146 H 130 H Calcium Magnesium AST ALT Alkaline Phosphatase Total Creatine Kinase CK-MB (CK-2) CK-MB (CK-2) Rel Index Troponin T C-Reactive Protein Total Protein Albumin Triglycerides Ur Specific Webber 04/05/17 04/05/17 04/05/17 04:43 05:28 11:36 WBC Hgb MCV MCH Plt Count Lymph % (Auto) Lymph # Seg Neutrophils % Lymphocytes % (Manual) Monocytes % (Manual) Nucleated RBC % Seg Neutrophils # Seg Neutrophils # Man Monocytes # (Manual) PT INR Activated Clotting Time POC ABG pH 7.479 H POC ABG pCO2 33.5 L POC ABG pO2 76 L Sodium Potassium Chloride Carbon Dioxide BUN Creatinine Glucose POC Glucose 145 H 136 H Calcium Magnesium AST ALT Alkaline Phosphatase Total Creatine Kinase CK-MB (CK-2) CK-MB (CK-2) Rel Index Troponin T C-Reactive Protein Total Protein Albumin Triglycerides Ur Specific Webber 04/05/17 04/06/17 04/06/17 17:58 00:16 05:26 WBC Hgb MCV MCH Plt Count Lymph % (Auto) Lymph # Seg Neutrophils % Lymphocytes % (Manual) Monocytes % (Manual) Nucleated RBC % Seg Neutrophils # Seg Neutrophils # Man Monocytes # (Manual) PT INR Activated Clotting Time POC ABG pH POC ABG pCO2 POC ABG pO2 Sodium Potassium Chloride Carbon Dioxide BUN Creatinine Glucose POC Glucose 130 H 159 H 146 H Calcium Magnesium AST ALT Alkaline Phosphatase Total Creatine Kinase CK-MB (CK-2) CK-MB (CK-2) Rel Index Troponin T C-Reactive Protein Total Protein Albumin Triglycerides Ur Specific Webber 04/06/17 04/06/17 04/07/17 13:11 16:54 11:45 WBC Hgb MCV MCH Plt Count Lymph % (Auto) Lymph # Seg Neutrophils % Lymphocytes % (Manual) Monocytes % (Manual) Nucleated RBC % Seg Neutrophils # Seg Neutrophils # Man Monocytes # (Manual) PT INR Activated Clotting Time POC ABG pH 7.517 H POC ABG pCO2 32.1 L POC ABG pO2 Sodium Potassium Chloride Carbon Dioxide BUN Creatinine Glucose POC Glucose 132 H 123 H Calcium Magnesium AST ALT Alkaline Phosphatase Total Creatine Kinase CK-MB (CK-2) CK-MB (CK-2) Rel Index Troponin T C-Reactive Protein Total Protein Albumin Triglycerides Ur Specific Webber 04/07/17 04/07/17 04/07/17 12:51 17:40 23:55 WBC Hgb MCV MCH Plt Count Lymph % (Auto) Lymph # Seg Neutrophils % Lymphocytes % (Manual) Monocytes % (Manual) Nucleated RBC % Seg Neutrophils # Seg Neutrophils # Man Monocytes # (Manual) PT INR Activated Clotting Time POC ABG pH POC ABG pCO2 POC ABG pO2 Sodium Potassium Chloride Carbon Dioxide BUN Creatinine Glucose POC Glucose 138 H 154 H 143 H Calcium Magnesium AST ALT Alkaline Phosphatase Total Creatine Kinase CK-MB (CK-2) CK-MB (CK-2) Rel Index Troponin T C-Reactive Protein Total Protein Albumin Triglycerides Ur Specific Webber 04/08/17 04/08/17 04/08/17 05:27 11:14 17:44 WBC Hgb MCV MCH Plt Count Lymph % (Auto) Lymph # Seg Neutrophils % Lymphocytes % (Manual) Monocytes % (Manual) Nucleated RBC % Seg Neutrophils # Seg Neutrophils # Man Monocytes # (Manual) PT INR Activated Clotting Time POC ABG pH POC ABG pCO2 POC ABG pO2 Sodium Potassium Chloride Carbon Dioxide BUN Creatinine Glucose POC Glucose 142 H 153 H 129 H Calcium Magnesium AST ALT Alkaline Phosphatase Total Creatine Kinase CK-MB (CK-2) CK-MB (CK-2) Rel Index Troponin T C-Reactive Protein Total Protein Albumin Triglycerides Ur Specific Webber 04/09/17 04/09/17 04/09/17 08:20 11:21 17:37 WBC Hgb MCV MCH Plt Count Lymph % (Auto) Lymph # Seg Neutrophils % Lymphocytes % (Manual) Monocytes % (Manual) Nucleated RBC % Seg Neutrophils # Seg Neutrophils # Man Monocytes # (Manual) PT INR Activated Clotting Time POC ABG pH POC ABG pCO2 POC ABG pO2 Sodium 147 H Potassium Chloride 108.8 H Carbon Dioxide BUN 39 H Creatinine 0.5 L Glucose 138 H POC Glucose 152 H 109 H Calcium Magnesium AST ALT Alkaline Phosphatase Total Creatine Kinase CK-MB (CK-2) CK-MB (CK-2) Rel Index Troponin T C-Reactive Protein Total Protein Albumin Triglycerides Ur Specific Webber 04/10/17 04/10/17 04/10/17 00:13 04:16 04:16 WBC Hgb 11.5 L MCV 96 H MCH Plt Count 103 L Lymph % (Auto) 11.1 L Lymph # Seg Neutrophils % 81.5 H Lymphocytes % (Manual) Monocytes % (Manual) Nucleated RBC % Seg Neutrophils # 8.8 H Seg Neutrophils # Man Monocytes # (Manual) PT INR Activated Clotting Time POC ABG pH POC ABG pCO2 POC ABG pO2 Sodium 148 H Potassium Chloride 109.0 H Carbon Dioxide BUN 36 H Creatinine 0.5 L Glucose 131 H POC Glucose 127 H Calcium 8.1 L Magnesium 2.40 H AST 206 H ALT 228 H Alkaline Phosphatase 178 H Total Creatine Kinase CK-MB (CK-2) CK-MB (CK-2) Rel Index Troponin T C-Reactive Protein Total Protein Albumin 2.8 L Triglycerides Ur Specific Webber 04/10/17 04/10/17 04/10/17 06:01 11:57 18:27 WBC Hgb MCV MCH Plt Count Lymph % (Auto) Lymph # Seg Neutrophils % Lymphocytes % (Manual) Monocytes % (Manual) Nucleated RBC % Seg Neutrophils # Seg Neutrophils # Man Monocytes # (Manual) PT INR Activated Clotting Time POC ABG pH POC ABG pCO2 POC ABG pO2 Sodium Potassium Chloride Carbon Dioxide BUN Creatinine Glucose POC Glucose 108 H 154 H 130 H Calcium Magnesium AST ALT Alkaline Phosphatase Total Creatine Kinase CK-MB (CK-2) CK-MB (CK-2) Rel Index Troponin T C-Reactive Protein Total Protein Albumin Triglycerides Ur Specific Webber 04/11/17 04/11/17 04/12/17 12:25 17:10 00:22 WBC Hgb MCV MCH Plt Count Lymph % (Auto) Lymph # Seg Neutrophils % Lymphocytes % (Manual) Monocytes % (Manual) Nucleated RBC % Seg Neutrophils # Seg Neutrophils # Man Monocytes # (Manual) PT INR Activated Clotting Time POC ABG pH POC ABG pCO2 POC ABG pO2 Sodium Potassium Chloride Carbon Dioxide BUN Creatinine Glucose POC Glucose 107 H 129 H 128 H Calcium Magnesium AST ALT Alkaline Phosphatase Total Creatine Kinase CK-MB (CK-2) CK-MB (CK-2) Rel Index Troponin T C-Reactive Protein Total Protein Albumin Triglycerides Ur Specific Webber 04/12/17 04/12/17 04/12/17 05:00 11:57 17:47 WBC Hgb MCV MCH Plt Count Lymph % (Auto) Lymph # Seg Neutrophils % Lymphocytes % (Manual) Monocytes % (Manual) Nucleated RBC % Seg Neutrophils # Seg Neutrophils # Man Monocytes # (Manual) PT INR Activated Clotting Time POC ABG pH POC ABG pCO2 POC ABG pO2 Sodium Potassium Chloride Carbon Dioxide BUN Creatinine Glucose POC Glucose 140 H 142 H Calcium Magnesium AST 158 H ALT 184 H Alkaline Phosphatase 170 H Total Creatine Kinase CK-MB (CK-2) CK-MB (CK-2) Rel Index Troponin T C-Reactive Protein Total Protein Albumin 2.8 L Triglycerides Ur Specific Webber 04/12/17 04/12/17 04/13/17 21:36 21:36 01:37 WBC Hgb MCV MCH Plt Count Lymph % (Auto) Lymph # Seg Neutrophils % Lymphocytes % (Manual) Monocytes % (Manual) Nucleated RBC % Seg Neutrophils # Seg Neutrophils # Man Monocytes # (Manual) PT INR Activated Clotting Time POC ABG pH POC ABG pCO2 POC ABG pO2 Sodium Potassium Chloride Carbon Dioxide BUN Creatinine Glucose POC Glucose 126 H Calcium Magnesium AST ALT Alkaline Phosphatase Total Creatine Kinase 1404 H CK-MB (CK-2) 8.0 H CK-MB (CK-2) Rel Index Troponin T 0.767 H* C-Reactive Protein Total Protein Albumin Triglycerides Ur Specific Webber 04/13/17 04/13/17 04/13/17 04:45 04:52 12:17 WBC Hgb MCV MCH Plt Count Lymph % (Auto) Lymph # Seg Neutrophils % Lymphocytes % (Manual) Monocytes % (Manual) Nucleated RBC % Seg Neutrophils # Seg Neutrophils # Man Monocytes # (Manual) PT INR Activated Clotting Time POC ABG pH POC ABG pCO2 POC ABG pO2 Sodium 148 H Potassium Chloride 112.8 H Carbon Dioxide BUN 33 H Creatinine 0.4 L Glucose 121 H POC Glucose 126 H 149 H Calcium Magnesium AST 160 H ALT 189 H Alkaline Phosphatase 166 H Total Creatine Kinase CK-MB (CK-2) CK-MB (CK-2) Rel Index Troponin T C-Reactive Protein Total Protein Albumin 2.6 L Triglycerides Ur Specific Webber 04/13/17 04/14/17 04/14/17 17:45 00:20 00:45 WBC Hgb MCV MCH Plt Count Lymph % (Auto) Lymph # Seg Neutrophils % Lymphocytes % (Manual) Monocytes % (Manual) Nucleated RBC % Seg Neutrophils # Seg Neutrophils # Man Monocytes # (Manual) PT INR Activated Clotting Time POC ABG pH POC ABG pCO2 POC ABG pO2 Sodium Potassium Chloride Carbon Dioxide BUN Creatinine Glucose POC Glucose 130 H 144 H 144 H Calcium Magnesium AST ALT Alkaline Phosphatase Total Creatine Kinase CK-MB (CK-2) CK-MB (CK-2) Rel Index Troponin T C-Reactive Protein Total Protein Albumin Triglycerides Ur Specific Webber 04/14/17 05:40 WBC Hgb MCV MCH Plt Count Lymph % (Auto) Lymph # Seg Neutrophils % Lymphocytes % (Manual) Monocytes % (Manual) Nucleated RBC % Seg Neutrophils # Seg Neutrophils # Man Monocytes # (Manual) PT INR Activated Clotting Time POC ABG pH POC ABG pCO2 POC ABG pO2 Sodium Potassium Chloride Carbon Dioxide BUN Creatinine Glucose POC Glucose 139 H Calcium Magnesium AST ALT Alkaline Phosphatase Total Creatine Kinase CK-MB (CK-2) CK-MB (CK-2) Rel Index Troponin T C-Reactive Protein Total Protein Albumin Triglycerides Ur Specific Webber
[2017-04-14] MEDS: HEPARIN SUB-Q SCH ×2 (11:07→21:29)
--- NOTE | 2017-04-14 11:08 | XRay Report ---
PORTABLE CHEST INDICATION: Fever. COMPARISON: 04/07/2017 FINDINGS: Portable, frontal chest radiograph now demonstrates left retrocardiac consolidation with much obscured left hemidiaphragm medially. Otherwise stable lungs, cardiomediastinal silhouette, various supporting devices, EKG leads and osseous structures. CONCLUSION: New left retrocardiac opacity and stable supporting devices, as described. Thank you for the opportunity to participate in this patient's care.
[2017-04-14 11:28] LABS: Bilirubin,Urine NEG (Negative); Blood,Urine LG (Negative); Color,Urine Amber (Yellow); Mucus,Urine FEW /HPF
[2017-04-14 11:40] LABS: RBC,Urine > 182.0 /HPF (0.0-6.0); WBC,Urine > 182.0 /HPF (0.0-6.0)
--- NOTE | 2017-04-14 12:46 | Progress Note ---
Assessment and Plan Assessment and plan: 46 YO Male with No PMH who was admitted through emergency room with history of V. fib cardiac arrest status post CPR per ACLS protocol, patient was an administrative failure intubated and placed on ventilatory support. Unable to wean, scheduled for trach and PEG today; --Acute hypoxic respiratory failure; vent dependent Plavix now on hold, Trach and Peg scheduled for today, pulmonary, surgery following --Status post cardiac arrest: Status post CPR, unresponsive, supportive care --Anoxic brain injury; patient has been off sedation and still obtunded and nonresponsive. Poor prognosis, family aware, trach and PEG today --Acute anterior STEMI ; status post PCI Cardiology following , continue current cardiac medications --Hypertension ; closely monitor , continue current antihypertensives and when necessary medications --MRSA pneumonia /aspiration pneumonia contact isolation, ID following completed zyvox on 04/10 --Cardiogenic shock; resolved Currently off pressors, closely monitor --Hypokalemia /hypernatremia Corrected --DC planning. Case management Possible SNF versus rehabilitation unable to go to [facility] as has no insurance medicare disability application in process of being filled out by family Trach and PEG today Consults and recommendations noted and appreciated Critical care time 31 minutes The high probability of a clinically significant, sudden or life threatening deterioration of the [Pulmonary, cardiac, renal] system(s) required my full and direct attention, intervention and personal management. The aggregate critical care time was [31] minutes. This time is in addition to time spent performing reported procedures but includes the following: [x] Data Review and interpretation [x] Patient assessment and monitoring of vital signs [x] Documentation [x] Medication orders and management History Interval history: Patient seen and examined today medical records reviewed Orally intubated on ventilatory support, unable to wean, trach and PEG today Low-grade fever Unresponsive Hospitalist Physical - Constitutional Vitals: Temp Pulse Resp BP Pulse Ox 100.6 F H 75 28 H 103/57 93 04/14/17 12:00 04/14/17 11:38 04/14/17 11:00 04/14/17 11:00 04/14/17 11:00 General appearance: Present: no acute distress, well-nourished, other ( intubated on ventilatory support) - EENT Eyes: Present: PERRL, EOM intact - Neck Neck: Present: supple, normal ROM - Respiratory Respiratory effort: normal Respiratory: bilateral: diminished, rhonchi, negative: rales, wheezing - Cardiovascular Rhythm: regular Heart Sounds: Present: S1 & S2 - Extremities Extremities: no ischemia Extremity abnormal: edema - Abdominal General gastrointestinal: soft, non-tender, non-distended, normal bowel sounds - Integumentary Integumentary: Present: clear, warm - Psychiatric Psychiatric: other (unresponsive) - Neurologic Neurologic: other (unresponsive) Results - Labs CBC & Chem 7: 04/10/17 04:16 04/13/17 04:45 Labs: Laboratory Last Values WBC 10.8 K/mm3 (4.5-11.0) 04/10/17 04:16 RBC 3.70 M/mm3 (3.65-5.03) 04/10/17 04:16 Hgb 11.5 gm/dl (11.8-15.2) L 04/10/17 04:16 Hct 35.5 % (35.5-45.6) 04/10/17 04:16 MCV 96 fl (84-94) H 04/10/17 04:16 MCH 31 pg (28-32) 04/10/17 04:16 MCHC 32 % (32-34) 04/10/17 04:16 RDW 14.4 % (13.2-15.2) 04/10/17 04:16 Plt Count 103 K/mm3 (140-440) L 04/10/17 04:16 Lymph % (Auto) 11.1 % (13.4-35.0) L 04/10/17 04:16 [place] % (Auto) 5.1 % (0.0-7.3) 04/10/17 04:16 Eos % (Auto) 2.0 % (0.0-4.3) 04/10/17 04:16 Baso % (Auto) 0.3 % (0.0-1.8) 04/10/17 04:16 Lymph # 1.2 K/mm3 (1.2-5.4) 04/10/17 04:16 [place] # 0.5 K/mm3 (0.0-0.8) 04/10/17 04:16 Eos # 0.2 K/mm3 (0.0-0.4) 04/10/17 04:16 Baso # 0.0 K/mm3 (0.0-0.1) 04/10/17 04:16 Add Manual Diff Complete 03/30/17 03:50 Total Counted 100 03/30/17 03:50 Seg Neutrophils % 81.5 % (40.0-70.0) H 04/10/17 04:16 Seg Neuts % (Manual) 65.0 % (40.0-70.0) 03/30/17 03:50 Band Neutrophils % 17.0 % 03/30/17 03:50 Lymphocytes % (Manual) 7.0 % (13.4-35.0) L 03/30/17 03:50 Reactive Lymphs % (Man) 0 % 03/30/17 03:50 Monocytes % (Manual) 7.0 % (0.0-7.3) 03/30/17 03:50 Eosinophils % (Manual) 0 % (0.0-4.3) 03/30/17 03:50 Basophils % (Manual) 0 % (0.0-1.8) 03/30/17 03:50 Metamyelocytes % 4.0 % 03/30/17 03:50 Myelocytes % 0 % 03/30/17 03:50 Promyelocytes % 0 % 03/30/17 03:50 Blast Cells % 0 % 03/30/17 03:50 Nucleated RBC % Not Reportable 03/30/17 03:50 Seg Neutrophils # 8.8 K/mm3 (1.8-7.7) H 04/10/17 04:16 Seg Neutrophils # Man 12.7 K/mm3 (1.8-7.7) H 03/30/17 03:50 Band Neutrophils # 3.3 K/mm3 03/30/17 03:50 Lymphocytes # (Manual) 1.4 K/mm3 (1.2-5.4) 03/30/17 03:50 Abs React Lymphs (Man) 0.0 K/mm3 03/30/17 03:50 Monocytes # (Manual) 1.4 K/mm3 (0.0-0.8) H 03/30/17 03:50 Eosinophils # (Manual) 0.0 K/mm3 (0.0-0.4) 03/30/17 03:50 Basophils # (Manual) 0.0 K/mm3 (0.0-0.1) 03/30/17 03:50 Metamyelocytes # 0.8 K/mm3 03/30/17 03:50 Myelocytes # 0.0 K/mm3 03/30/17 03:50 Promyelocytes # 0.0 K/mm3 03/30/17 03:50 Blast Cells # 0.0 K/mm3 03/30/17 03:50 WBC Morphology Not Reportable 03/30/17 03:50 Hypersegmented Neuts Not Reportable 03/30/17 03:50 Hyposegmented Neuts Not Reportable 03/30/17 03:50 Hypogranular Neuts Not Reportable 03/30/17 03:50 Smudge Cells Not Reportable 03/30/17 03:50 Toxic Granulation Not Reportable 03/30/17 03:50 Toxic Vacuolation Not Reportable 03/30/17 03:50 Dohle Bodies Not Reportable 03/30/17 03:50 Pelger-Huet Anomaly Not Reportable 03/30/17 03:50 Sherry Rods Not Reportable 03/30/17 03:50 Platelet Estimate Appears normal 03/30/17 03:50 Clumped Platelets Not Reportable 03/30/17 03:50 Plt Clumps, EDTA Not Reportable 03/30/17 03:50 Large Platelets Not Reportable 03/30/17 03:50 Giant Platelets Not Reportable 03/30/17 03:50 Platelet Satelliting Not Reportable 03/30/17 03:50 Plt Morphology Comment Not Reportable 03/30/17 03:50 RBC Morphology Not Reportable 03/30/17 03:50 Dimorphic RBCs Not Reportable 03/30/17 03:50 Polychromasia Not Reportable 03/30/17 03:50 Hypochromasia Not Reportable 03/30/17 03:50 Poikilocytosis Not Reportable 03/30/17 03:50 Anisocytosis Few 03/30/17 03:50 Microcytosis Not Reportable 03/30/17 03:50 Macrocytosis Not Reportable 03/30/17 03:50 Spherocytes Not Reportable 03/30/17 03:50 Pappenheimer Bodies Not Reportable 03/30/17 03:50 Sickle Cells Not Reportable 03/30/17 03:50 Target Cells Not Reportable 03/30/17 03:50 Tear Drop Cells Not Reportable 03/30/17 03:50 Ovalocytes Not Reportable 03/30/17 03:50 Helmet Cells Not Reportable 03/30/17 03:50 Tamayo-Duncan Bodies Not Reportable 03/30/17 03:50 [place] Rings Not Reportable 03/30/17 03:50 Nusrat Cells Not Reportable 03/30/17 03:50 Bite Cells Not Reportable 03/30/17 03:50 Crenated Cell Not Reportable 03/30/17 03:50 Elliptocytes Not Reportable 03/30/17 03:50 Acanthocytes (Spur) Not Reportable 03/30/17 03:50 Rouleaux Not Reportable 03/30/17 03:50 Hemoglobin C Crystals Not Reportable 03/30/17 03:50 Schistocytes Not Reportable 03/30/17 03:50 Malaria parasites Not Reportable 03/30/17 03:50 Jermaine Bodies Not Reportable 03/30/17 03:50 Hem Pathologist Commnt No 03/30/17 03:50 PT 14.9 Sec. (12.2-14.9) 04/10/17 04:16 INR 1.11 (0.87-1.13) 04/10/17 04:16 APTT 27.8 Sec. (24.2-36.6) 04/10/17 04:16 Activated Clotting Time 92 (74-137) 03/29/17 17:47 POC ABG pH 7.517 (7.35-7.45) H 04/07/17 11:45 POC ABG pCO2 32.1 (35-45) L 04/07/17 11:45 POC ABG pO2 93 (80-105) 04/07/17 11:45 POC ABG HCO3 26.0 04/07/17 11:45 POC ABG Total CO2 27 04/07/17 11:45 POC ABG O2 Sat 98 04/07/17 11:45 POC ABG Base Excess 3 04/07/17 11:45 FiO2 35 % 04/07/17 11:45 Sodium 148 mmol/L (137-145) H 04/13/17 04:45 Potassium 4.1 mmol/L (3.6-5.0) 04/13/17 04:45 Chloride 112.8 mmol/L (98-107) H 04/13/17 04:45 Carbon Dioxide 24 mmol/L (22-30) 04/13/17 04:45 Anion Gap 15 mmol/L 04/13/17 04:45 BUN 33 mg/dL (9-20) H 04/13/17 04:45 Creatinine 0.4 mg/dL (0.8-1.5) L 04/13/17 04:45 Estimated GFR > 60 ml/min 04/13/17 04:45 BUN/Creatinine Ratio 83 % 04/13/17 04:45 Glucose 121 mg/dL (75-100) H 04/13/17 04:45 POC Glucose 123 (70-105) H 04/14/17 11:31 Calcium 8.4 mg/dL (8.4-10.2) 04/13/17 04:45 Phosphorus 3.50 mg/dL (2.5-4.5) 04/13/17 04:45 Magnesium 2.30 mg/dL (1.7-2.3) 04/13/17 04:45 Total Bilirubin 0.80 mg/dL (0.1-1.2) 04/13/17 04:45 Direct Bilirubin 0.2 mg/dL (0-0.2) 04/12/17 05:00 Indirect Bilirubin 0.5 mg/dL 04/12/17 05:00 AST 160 units/L (5-40) H 04/13/17 04:45 ALT 189 units/L (7-56) H 04/13/17 04:45 Alkaline Phosphatase 166 units/L (35-129) H 04/13/17 04:45 Total Creatine Kinase 1404 units/L (55-170) H 04/12/17 21:36 CK-MB (CK-2) 8.0 ng/mL (0.0-4.0) H 04/12/17 21:36 CK-MB (CK-2) Rel Index 0.5 (0-4) 04/12/17 21:36 Troponin T 0.767 ng/mL (0.00-0.029) H* 04/12/17 21:36 C-Reactive Protein 21.80 mg/dL (0.00-1.30) H 03/30/17 16:04 Total Protein 6.6 g/dL (6.3-8.2) 04/13/17 04:45 Albumin 2.6 g/dL (3.9-5) L 04/13/17 04:45 Albumin/Globulin Ratio 0.7 % 04/13/17 04:45 Triglycerides 151 mg/dL (2-149) H 04/01/17 04:29 Cholesterol 164 mg/dL (50-199) 03/29/17 19:52 LDL Cholesterol Direct 81 mg/dL (50-130) 03/29/17 19:52 HDL Cholesterol 44 mg/dL (40-59) 03/29/17 19:52 Cholesterol/HDL Ratio 3.72 % 03/29/17 19:52 Urine Color [place] (Yellow) 04/14/17 11:06 Urine Turbidity Slightly-cloudy (Clear) 04/14/17 11:06 Urine pH 5.0 (5.0-7.0) 04/14/17 11:06 Ur Specific [place] 1.033 (1.003-1.030) H 04/14/17 11:06 Urine Protein 100 mg/dl mg/dL (Negative) 04/14/17 11:06 Urine Glucose (UA) Neg mg/dL (Negative) 04/14/17 11:06 Urine Ketones Neg mg/dL (Negative) 04/14/17 11:06 Urine Blood Lg (Negative) 04/14/17 11:06 Urine Nitrite Pos (Negative) 04/14/17 11:06 Urine Bilirubin Neg (Negative) 04/14/17 11:06 Urine Urobilinogen 4.0 mg/dL (<2.0) 04/14/17 11:06 Ur Leukocyte Esterase Mod (Negative) 04/14/17 11:06 Urine WBC (Auto) > 182.0 /HPF (0.0-6.0) H 04/14/17 11:06 Urine RBC (Auto) > 182.0 /HPF (0.0-6.0) 04/14/17 11:06 Amorphous Crystals 1+ 03/30/17 09:45 Urine Mucus Few /HPF 04/14/17 11:06 Urine Opiates Screen Presumptive negative 03/30/17 09:45 Urine Methadone Screen Presumptive negative 03/30/17 09:45 Ur Barbiturates Screen Presumptive negative 03/30/17 09:45 Ur Phencyclidine Scrn Presumptive negative 03/30/17 09:45 Ur Amphetamines Screen Presumptive positive 03/30/17 09:45 U Benzodiazepines Scrn Presumptive positive 03/30/17 09:45 Urine Cocaine Screen Presumptive negative 03/30/17 09:45 U Marijuana (THC) Screen Presumptive negative 03/30/17 09:45 Drugs of Abuse Note Disclamer 03/30/17 09:45 Blood Type O POSITIVE 03/29/17 11:35 Antibody Screen Negative 03/29/17 11:35
--- NOTE | 2017-04-14 13:19 | Anesthesia Consultation ---
Anesthesia Consult and Med Hx Date of service: 04/14/17 - Airway Anesthetic Teeth Evaluation: Good (patient is intubated) - Pre-Operative Health Status ASA Pre-Surgery Classification: ASA3, ASA4 Proposed Anesthetic Plan: General - Pulmonary Hx Asthma: No COPD: No Hx Pneumonia: No - Cardiovascular System Hx Heart Attack/AMI: Yes (recent [place]; anoxic encephalopathy; CAD - stent placement) Hx Pacemaker: No Hx Internal Defibrillator: No - Endocrine Hx End Stage Renal Disease: No
[2017-04-14] MEDS ORDERED: DIPRIVAN 10 MG/ML IV ONE ×2 (13:27)
[2017-04-14] MEDS ORDERED: ZEMURON IV ONE ×2 (13:27→16:07)
--- NOTE | 2017-04-14 14:11 | Anesthesia Day of Surgery ---
Anesthesia Day of Surgery - Day of Surgery Patient Examined: Yes Patient H&P Reviewed: Yes Patient is NPO: Yes Beta Blockers: Yes (In last 24 hr)
--- NOTE | 2017-04-14 15:59 | Operative Report ---
Operative Report Operative Report: Date of Operation: 04/14/17 Preoperative diagnosis: Ventilator -dependent respiratory failure Operative diagnosis: Same as above Procedure performed: Fiber optic bronchoscopy Surgeon: Tres Beal DO Anesthesia: GETA Findings: Thickened, yellow secretions in the trachea Complications: None DisPosition: Stable in ICU HPI and indication: Patient is a 46-year-old male who was found down, status post cardiac arrest. The patient has remained on the ventilator and has been unable to be weaned. Therefore tracheostomy with assistance of fiberoptic bronchoscopy is indicated. All risks were discussed with the family, and consent obtained. Procedure in detail: The patient was identified in his bed in the ICU. A timeout was performed. After anesthesia was induced, the fiberoptic bronchoscope was passed through the endotracheal tube. There was a copious amount of thick, yellow secretions in the trachea which were cleared using saline flushes and suctioned. The mucosa of the trachea appeared healthy and the khurram was visualized. At this point, Dr. Tee who performed the tracheostomy portion of the procedure (please see separate operative note), asked for the endotracheal tube to be withdrawn by [address] Tee then placed the tracheostomy tube under direct visualization by fiberoptic bronchoscopy. Please see separate operative note for more details on Tracheostomy placement. Once the tracheostomy tube was placed, the bronchoscope was withdrawn from the endotracheal tube and placed through the tracheostomy tube. The tracheostomy tube appeared to be in good position approximately 3 cm above the khurram. The bronchoscope was then withdrawn and this portion of the procedure was complete.
--- NOTE | 2017-04-14 16:04 | XRay Report ---
PORTABLE CHEST INDICATION: Tracheostomy placement. COMPARISON: 10:30 AM earlier today. FINDINGS: Portable, frontal chest radiograph, 3:37 PM, 04/14/2017 now demonstrates a tracheostomy tube. Interval nasogastric tube removal. Stable right upper extremity PICC tip along the distal SVC. Stable cardiomediastinal silhouette/mild cardiomegaly. New bibasilar atelectasis. Left retrocardiac opacity with obscured left hemidiaphragm persists. Right hemidiaphragm also now slight hazily obscured. EKG leads. Stable bones. CONCLUSION: 1. Interval tracheostomy tube placement. New bibasilar atelectasis. 2. Interval esophagogastric tube removal. Stable right upper extremity PICC. 3. Left retrocardiac opacity again seen. Thank you for the opportunity to participate in this patient's care.
--- NOTE | 2017-04-14 17:18 | Operative Report ---
Operative Report Operative Report: Date of operation: 04/14/17 Preoperative diagnosis: Ventilator-dependent respiratory failure Postoperative diagnosis: Same as above Procedure performed: percutaneous endoscopic gastrostomy tube placement Surgeon:Tres Beal DO Cemetery Counselor: Cele Cross Anesthesia:GETA Findings: Bumper 3 cm at skin EBL: Minimal Condition: Stable Disposition: ICU HPI an indication: Patient is a 46-year-old male with anoxic brain injury secondary to cardiac arrest. The patient has not been able to be weaned from the ventilator and has been evaluated by neurology, cardiology, and pulmonary critical care. Famly would like to pursue residential care and gen surgery consulted for trach/PEG placement. All risks and benefits were discussed with the patient's family and consent obtained. Procedure in detail: Patient was identified in his room in the ICU. After anesthesia was induced, a timeout was performed. An endoscope was passed through the patient's mouth and into the esophagus. The scope was advanced down the esophagus under direct visualization, and esophageal mucosa appeared healthy. An NG tube was visualized. There were no acute findings at the GE junction. The stomach was entered and the rugae had a normal appearance. The mucosa of all portions of the stomach was visualized and there was no evidence of ulceration or inflammation. There was a small amount of bile reflux through the pylorus. The scope was retroflexed and there was a small amount of gastric fluid that was suctioned. At this point, the abdominal wall was transilluminated through the stomach and a location for PEG tube placement was established. After local anesthetic was infiltrated into the skin at the intended incision site, a small incision was made in the skin using an 11 blade. Using the pull technique, a PEG tube was placed. A needle was inserted into the stomach through this incision using endoscopic visualization. A wire was then passed through the needle which was grasped via snare through the endoscope. The endoscope was then withdrawn through the mouth. The snare was attached to the gastrostomy tube and was pulled down the mouth through the abdominal incision. This was secured in the usual fashion and the bumper was noted to be at 3 cm at the skin. The endoscope was once again passed through the mouth, down the esophagus, and into the stomach. The mushroom of the gastrostomy tube was seen laying flat against the stomach wall, and was able to spin freely without tension. The endoscope was then withdrawn. At the end of the case, all sponge, instrument, sharp counts were correct 2. The patient tolerated the procedure well.
[2017-04-14] MEDS: TYLENOL PO PRN (17:20)
[2017-04-14] MEDS: NACL 0.9% 1000 ML 1,000 ML IV SCH (17:29)
--- NOTE | 2017-04-14 17:37 | Procedure Note ---
Date of procedure: 04/14/17 Pre-op diagnosis: Respiratory Failure Post-op diagnosis: same Procedure: Percutaneous Tracheostomy Anesthesia: MAC, local Surgeon: ERICK DELACRUZ (Dr. Beal did the bronchoscopy) Estimated blood loss: minimal Pathology: none Condition: stable Disposition: ICU (Consent was on the chart. Time out was performed. Sterile prep and drape was done. Anesthesia was managed by anesthesia provider. Lidocaine was used to anesthetize an area about two finger breadths above the sternal notch. Transverse incision was made. Blunt dissection was carried down to trachea. Under bronchoscopic guidance, a finder needle was used to enter the trachea. Thereafter, the introducer needle was inserted. It was approximately at the second tracheal ring. Tract was dilated and tracheostomy tube was easily inserted. Balloon was inflated. Position was rechecked via bronchoscopy through the tracheostomy tube. We were at least 3 cm above the khurram. We had good inspiratory and expiratory volumes. CXR shows the tube to be in good position. There were no apparent complications at the end of the case.)
[2017-04-15] MEDS: LOPRESSOR PO SCH ×4 (01:05→18:47)
[2017-04-15] MEDS: TYLENOL PO PRN ×3 (01:06→21:06)
[2017-04-15] MEDS: COLACE FEEDTUBE SCH ×3 (02:15→21:05)
[2017-04-15] MEDS: NACL 0.9% 1000 ML 1,000 ML IV SCH (04:28)
[2017-04-15 05:37] LABS: Basophils % (Auto) 0.3 % (0.0-1.8); Eosinophils # (Auto) 0.2 K/mm3 (0.0-0.4); Eosinophils % (Auto) 1.8 % (0.0-4.3); Hematocrit 32.7 % (35.5-45.6); Hemoglobin 10.6 gm/dl (11.8-15.2); Lymphocytes # (Auto) 1.1 K/mm3 (1.2-5.4); Lymphocytes % (Auto) 8.7 % (13.4-35.0); Mean Corpuscular HGB Conc 32 % (32-34); Mean Corpuscular Hemoglobin 31 pg (28-32); Mean Corpuscular Volume 97 fl (84-94); Monocytes # (Auto) 0.4 K/mm3 (0.0-0.8); Monocytes % (Auto) 3.1 % (0.0-7.3); Platelet Count 107 K/mm3 (140-440); Red Blood Count 3.38 M/mm3 (3.65-5.03); Red Cell Distribution Width 14.1 % (13.2-15.2)
[2017-04-15 06:01] LABS: Alanine Aminotransferase 182 units/L (7-56); Albumin 2.5 g/dL (3.9-5); BUN/Creatinine Ratio 73; Bilirubin,Direct 0.4 mg/dL (0-0.2); Blood Urea Nitrogen 29 mg/dL (9-20); Calcium 8.3 mg/dL (8.4-10.2); Hemolysis Index 2
[2017-04-15] MEDS: NITRO DUR TD SCH (08:37)
--- NOTE | 2017-04-15 09:56 | Progress Note ---
Assessment and Plan Assessment and plan: 46 YO Male with No PMH who was admitted through emergency room with history of V. fib cardiac arrest status post CPR per ACLS protocol, acute respiratory failure vent dependent , had tracheostomy and PEG placement yesterday awaiting LTAC evaluation and placement --Acute hypoxic respiratory failure;s/p tracheostomy on vent Resume Plavix tomorrow if no contraindication --Status post cardiac arrest: Status post CPR, unresponsive, supportive care --Anoxic brain injury; patient has been off sedation and still obtunded and nonresponsive. Poor prognosis, s/p trach and PEG --Acute anterior STEMI ; status post PCI Cardiology following , continue current cardiac medications --Hypertension ; closely monitor , continue current antihypertensives and when necessary medications --MRSA pneumonia /aspiration pneumonia contact isolation, ID following completed zyvox on 04/10 --Cardiogenic shock; resolved Currently off pressors, closely monitor --Hypokalemia /hypernatremia Corrected --DVT prophylaxis; heparin --Full CODE STATUS --DC planning. Case management Possible SNF versus rehabilitation unable to go to LTACH as has no insurance medicare disability application in process of being filled out by family Critical care time 31 minutes The high probability of a clinically significant, sudden or life threatening deterioration of the [Pulmonary, cardiac, renal] system(s) required my full and direct attention, intervention and personal management. The aggregate critical care time was [31] minutes. This time is in addition to time spent performing reported procedures but includes the following: [x] Data Review and interpretation [x] Patient assessment and monitoring of vital signs [x] Documentation [x] Medication orders and management History Interval history: Patient seen and examined medical records reviewed Patient is unresponsive, not in acute distress Underwent tracheostomy, PEG tube placement, on PEG feeds Vital signs stable Hospitalist Physical - Constitutional Vitals: Temp Pulse Resp BP Pulse Ox 101.2 F H 103 H 31 H 109/59 97 04/15/17 08:00 04/15/17 08:00 04/15/17 08:00 04/15/17 08:00 04/15/17 08:00 General appearance: Present: no acute distress, well-nourished, other ( tracheostomy on ventilatory support) - EENT Eyes: Present: PERRL, EOM intact - Neck Neck: Present: supple, normal ROM - Respiratory Respiratory effort: normal Respiratory: bilateral: diminished, rhonchi, negative: rales, wheezing - Cardiovascular Rhythm: regular Heart Sounds: Present: S1 & S2 - Extremities Extremities: no ischemia, No edema - Abdominal General gastrointestinal: soft, non-tender, non-distended, normal bowel sounds, other (PEG tube in place) - Integumentary Integumentary: Present: clear, warm - Psychiatric Psychiatric: other (unresponsive) - Neurologic Neurologic: other (unresponsive) Results - Labs CBC & Chem 7: 04/15/17 05:15 04/15/17 05:15 Labs: Laboratory Last Values WBC 12.5 K/mm3 (4.5-11.0) H 04/15/17 05:15 RBC 3.38 M/mm3 (3.65-5.03) L 04/15/17 05:15 Hgb 10.6 gm/dl (11.8-15.2) L 04/15/17 05:15 Hct 32.7 % (35.5-45.6) L 04/15/17 05:15 MCV 97 fl (84-94) H 04/15/17 05:15 MCH 31 pg (28-32) 04/15/17 05:15 MCHC 32 % (32-34) 04/15/17 05:15 RDW 14.1 % (13.2-15.2) 04/15/17 05:15 Plt Count 107 K/mm3 (140-440) L 04/15/17 05:15 Lymph % (Auto) 8.7 % (13.4-35.0) L 04/15/17 05:15 [place] % (Auto) 3.1 % (0.0-7.3) 04/15/17 05:15 Eos % (Auto) 1.8 % (0.0-4.3) 04/15/17 05:15 Baso % (Auto) 0.3 % (0.0-1.8) 04/15/17 05:15 Lymph # 1.1 K/mm3 (1.2-5.4) L 04/15/17 05:15 [place] # 0.4 K/mm3 (0.0-0.8) 04/15/17 05:15 Eos # 0.2 K/mm3 (0.0-0.4) 04/15/17 05:15 Baso # 0.0 K/mm3 (0.0-0.1) 04/15/17 05:15 Add Manual Diff Complete 03/30/17 03:50 Total Counted 100 03/30/17 03:50 Seg Neutrophils % 86.1 % (40.0-70.0) H 04/15/17 05:15 Seg Neuts % (Manual) 65.0 % (40.0-70.0) 03/30/17 03:50 Band Neutrophils % 17.0 % 03/30/17 03:50 Lymphocytes % (Manual) 7.0 % (13.4-35.0) L 03/30/17 03:50 Reactive Lymphs % (Man) 0 % 03/30/17 03:50 Monocytes % (Manual) 7.0 % (0.0-7.3) 03/30/17 03:50 Eosinophils % (Manual) 0 % (0.0-4.3) 03/30/17 03:50 Basophils % (Manual) 0 % (0.0-1.8) 03/30/17 03:50 Metamyelocytes % 4.0 % 03/30/17 03:50 Myelocytes % 0 % 03/30/17 03:50 Promyelocytes % 0 % 03/30/17 03:50 Blast Cells % 0 % 03/30/17 03:50 Nucleated RBC % Not Reportable 03/30/17 03:50 Seg Neutrophils # 10.7 K/mm3 (1.8-7.7) H 04/15/17 05:15 Seg Neutrophils # Man 12.7 K/mm3 (1.8-7.7) H 03/30/17 03:50 Band Neutrophils # 3.3 K/mm3 03/30/17 03:50 Lymphocytes # (Manual) 1.4 K/mm3 (1.2-5.4) 03/30/17 03:50 Abs React Lymphs (Man) 0.0 K/mm3 03/30/17 03:50 Monocytes # (Manual) 1.4 K/mm3 (0.0-0.8) H 03/30/17 03:50 Eosinophils # (Manual) 0.0 K/mm3 (0.0-0.4) 03/30/17 03:50 Basophils # (Manual) 0.0 K/mm3 (0.0-0.1) 03/30/17 03:50 Metamyelocytes # 0.8 K/mm3 03/30/17 03:50 Myelocytes # 0.0 K/mm3 03/30/17 03:50 Promyelocytes # 0.0 K/mm3 03/30/17 03:50 Blast Cells # 0.0 K/mm3 03/30/17 03:50 WBC Morphology Not Reportable 03/30/17 03:50 Hypersegmented Neuts Not Reportable 03/30/17 03:50 Hyposegmented Neuts Not Reportable 03/30/17 03:50 Hypogranular Neuts Not Reportable 03/30/17 03:50 Smudge Cells Not Reportable 03/30/17 03:50 Toxic Granulation Not Reportable 03/30/17 03:50 Toxic Vacuolation Not Reportable 03/30/17 03:50 Dohle Bodies Not Reportable 03/30/17 03:50 Pelger-Huet Anomaly Not Reportable 03/30/17 03:50 Sherry Rods Not Reportable 03/30/17 03:50 Platelet Estimate Appears normal 03/30/17 03:50 Clumped Platelets Not Reportable 03/30/17 03:50 Plt Clumps, EDTA Not Reportable 03/30/17 03:50 Large Platelets Not Reportable 03/30/17 03:50 Giant Platelets Not Reportable 03/30/17 03:50 Platelet Satelliting Not Reportable 03/30/17 03:50 Plt Morphology Comment Not Reportable 03/30/17 03:50 RBC Morphology Not Reportable 03/30/17 03:50 Dimorphic RBCs Not Reportable 03/30/17 03:50 Polychromasia Not Reportable 03/30/17 03:50 Hypochromasia Not Reportable 03/30/17 03:50 Poikilocytosis Not Reportable 03/30/17 03:50 Anisocytosis Few 03/30/17 03:50 Microcytosis Not Reportable 03/30/17 03:50 Macrocytosis Not Reportable 03/30/17 03:50 Spherocytes Not Reportable 03/30/17 03:50 Pappenheimer Bodies Not Reportable 03/30/17 03:50 Sickle Cells Not Reportable 03/30/17 03:50 Target Cells Not Reportable 03/30/17 03:50 Tear Drop Cells Not Reportable 03/30/17 03:50 Ovalocytes Not Reportable 03/30/17 03:50 Helmet Cells Not Reportable 03/30/17 03:50 [place] Bodies Not Reportable 03/30/17 03:50 [place] Rings Not Reportable 03/30/17 03:50 Nusrat Cells Not Reportable 03/30/17 03:50 Bite Cells Not Reportable 03/30/17 03:50 Crenated Cell Not Reportable 03/30/17 03:50 Elliptocytes Not Reportable 03/30/17 03:50 Acanthocytes (Spur) Not Reportable 03/30/17 03:50 Rouleaux Not Reportable 03/30/17 03:50 Hemoglobin C Crystals Not Reportable 03/30/17 03:50 Schistocytes Not Reportable 03/30/17 03:50 Malaria parasites Not Reportable 03/30/17 03:50 Jermaine Bodies Not Reportable 03/30/17 03:50 Hem Pathologist Commnt No 03/30/17 03:50 PT 14.9 Sec. (12.2-14.9) 04/10/17 04:16 INR 1.11 (0.87-1.13) 04/10/17 04:16 APTT 27.8 Sec. (24.2-36.6) 04/10/17 04:16 Activated Clotting Time 92 (74-137) 03/29/17 17:47 POC ABG pH 7.517 (7.35-7.45) H 04/07/17 11:45 POC ABG pCO2 32.1 (35-45) L 04/07/17 11:45 POC ABG pO2 93 (80-105) 04/07/17 11:45 POC ABG HCO3 26.0 04/07/17 11:45 POC ABG Total CO2 27 04/07/17 11:45 POC ABG O2 Sat 98 04/07/17 11:45 POC ABG Base Excess 3 04/07/17 11:45 FiO2 35 % 04/07/17 11:45 Sodium 149 mmol/L (137-145) H 04/15/17 05:15 Potassium 3.5 mmol/L (3.6-5.0) L 04/15/17 05:15 Chloride 114.1 mmol/L (98-107) H 04/15/17 05:15 Carbon Dioxide 21 mmol/L (22-30) L 04/15/17 05:15 Anion Gap 17 mmol/L 04/15/17 05:15 BUN 29 mg/dL (9-20) H 04/15/17 05:15 Creatinine 0.4 mg/dL (0.8-1.5) L 04/15/17 05:15 Estimated GFR > 60 ml/min 04/15/17 05:15 BUN/Creatinine Ratio 73 % 04/15/17 05:15 Glucose 128 mg/dL (75-100) H 04/15/17 05:15 POC Glucose 133 (70-105) H 04/15/17 05:25 Calcium 8.3 mg/dL (8.4-10.2) L 04/15/17 05:15 Phosphorus 3.50 mg/dL (2.5-4.5) 04/13/17 04:45 Magnesium 2.20 mg/dL (1.7-2.3) 04/15/17 05:15 Total Bilirubin 1.00 mg/dL (0.1-1.2) 04/15/17 05:15 Direct Bilirubin 0.4 mg/dL (0-0.2) H 04/15/17 05:15 Indirect Bilirubin 0.6 mg/dL 04/15/17 05:15 AST 149 units/L (5-40) H 04/15/17 05:15 ALT 182 units/L (7-56) H 04/15/17 05:15 Alkaline Phosphatase 143 units/L (35-129) H 04/15/17 05:15 Total Creatine Kinase 1404 units/L (55-170) H 04/12/17 21:36 CK-MB (CK-2) 8.0 ng/mL (0.0-4.0) H 04/12/17 21:36 CK-MB (CK-2) Rel Index 0.5 (0-4) 04/12/17 21:36 Troponin T 0.767 ng/mL (0.00-0.029) H* 04/12/17 21:36 C-Reactive Protein 21.80 mg/dL (0.00-1.30) H 03/30/17 16:04 Total Protein 6.4 g/dL (6.3-8.2) 04/15/17 05:15 Albumin 2.5 g/dL (3.9-5) L 04/15/17 05:15 Albumin/Globulin Ratio 0.6 % 04/15/17 05:15 Triglycerides 151 mg/dL (2-149) H 04/01/17 04:29 Cholesterol 164 mg/dL (50-199) 03/29/17 19:52 LDL Cholesterol Direct 81 mg/dL (50-130) 03/29/17 19:52 HDL Cholesterol 44 mg/dL (40-59) 03/29/17 19:52 Cholesterol/HDL Ratio 3.72 % 03/29/17 19:52 Urine Color [place] (Yellow) 04/14/17 11:06 Urine Turbidity Slightly-cloudy (Clear) 04/14/17 11:06 Urine pH 5.0 (5.0-7.0) 04/14/17 11:06 Ur Specific [place] 1.033 (1.003-1.030) H 04/14/17 11:06 Urine Protein 100 mg/dl mg/dL (Negative) 04/14/17 11:06 Urine Glucose (UA) Neg mg/dL (Negative) 04/14/17 11:06 Urine Ketones Neg mg/dL (Negative) 04/14/17 11:06 Urine Blood Lg (Negative) 04/14/17 11:06 Urine Nitrite Pos (Negative) 04/14/17 11:06 Urine Bilirubin Neg (Negative) 04/14/17 11:06 Urine Urobilinogen 4.0 mg/dL (<2.0) 04/14/17 11:06 Ur Leukocyte Esterase Mod (Negative) 04/14/17 11:06 Urine WBC (Auto) > 182.0 /HPF (0.0-6.0) H 04/14/17 11:06 Urine RBC (Auto) > 182.0 /HPF (0.0-6.0) 04/14/17 11:06 Amorphous Crystals 1+ 03/30/17 09:45 Urine Mucus Few /HPF 04/14/17 11:06 Urine Opiates Screen Presumptive negative 03/30/17 09:45 Urine Methadone Screen Presumptive negative 03/30/17 09:45 Ur Barbiturates Screen Presumptive negative 03/30/17 09:45 Ur Phencyclidine Scrn Presumptive negative 03/30/17 09:45 Ur Amphetamines Screen Presumptive positive 03/30/17 09:45 U Benzodiazepines Scrn Presumptive positive 03/30/17 09:45 Urine Cocaine Screen Presumptive negative 03/30/17 09:45 U Marijuana (THC) Screen Presumptive negative 03/30/17 09:45 Drugs of Abuse Note Disclamer 03/30/17 09:45 Blood Type O POSITIVE 03/29/17 11:35 Antibody Screen Negative 03/29/17 11:35
[2017-04-15] MEDS ORDERED: PLAVIX PO ONE (10:00)
[2017-04-15] MEDS: ASPIRIN PO SCH (10:27)
[2017-04-15] MEDS: PROTONIX FEEDTUBE SCH (10:27)
[2017-04-15] MEDS: HEPARIN SUB-Q SCH ×2 (10:28→21:05)
[2017-04-15] MEDS: D5/0.45NS 1,000 ML IV SCH (10:30)
[2017-04-15] MEDS: ZESTRIL PO SCH (10:31)
--- NOTE | 2017-04-15 10:50 | Progress Note ---
Assessment and Plan Out of hospital VF arrest s/p trach and PEG tube Acute anterior STEMI s/p PCI of the LAD using BM stents deployed. reduced LVEF 30-35% by echocardiogram. DAPT on hold awaiting for trach and peg Respiratory failure intubated on the vent Anoxic brain injury Pneumonia: MRSA Elevated Transaminitis Amiodarone and statins discontinued Plan: Conservative cardiac management Subjective Date of service: 04/15/17 Principal diagnosis: septic shock Interval history: No interval changes cardiac harrison Objective Vital Signs Temp Pulse Pulse Resp BP Pulse Ox Pulse Ox 04/15/17 10:31 101 H 101/53 04/15/17 10:28 27 H 04/15/17 10:02 96 04/15/17 08:45 102 H 101/53 96 04/15/17 08:00 101.2 F H 103 H 31 H 109/59 97 04/15/17 07:00 96 H 27 H 98/60 97 04/15/17 06:00 95 H 26 H 108/61 95 04/15/17 05:00 93 H 29 H 104/66 04/15/17 04:00 86 27 H 93/52 95 04/15/17 03:24 99.7 F H 04/15/17 03:00 87 28 H 92/54 96 04/15/17 02:00 99 H 32 H 94/61 98 04/15/17 01:05 102 H 96/55 04/15/17 01:00 102 H 35 H 96/55 94 04/15/17 00:30 103 H 100/55 98 04/15/17 00:00 102 H 35 H 104/55 96 04/14/17 23:34 102.5 F H 04/14/17 23:00 97 H 33 H 100/55 97 04/14/17 22:00 101 H 33 H 100/58 95 04/14/17 21:00 99 H 27 H 104/64 94 04/14/17 20:33 93 H 31 H 99/61 97 04/14/17 20:00 90 32 H 93/58 97 04/14/17 19:47 100 F H 04/14/17 19:30 91 H 93/58 97 04/14/17 19:00 88 35 H 84/56 92 04/14/17 18:00 86 28 H 85/45 95 04/14/17 17:19 100 H 112/67 04/14/17 17:00 117/70 96 04/14/17 16:00 100.4 F H 111 H 86 35 H 125/73 97 04/14/17 15:40 120 H 27 H 123/73 100 04/14/17 15:25 100.1 F H 123 H 27 H 129/79 100 04/14/17 15:00 117 H 28 H 117/75 98 04/14/17 14:05 98 H 114/66 04/14/17 14:00 99 H 29 H 114/66 94 04/14/17 13:15 100.6 F H 98 H 28 H 110/62 97 04/14/17 13:00 98 H 29 H 110/62 95 04/14/17 12:00 100.6 F H 97 H 32 H 106/54 93 04/14/17 11:38 75 04/14/17 11:00 94 H 28 H 103/57 93 - Physical Examination General: Other (unresponsive on the vent) HEENT: Positive: Other (unresponsive, vent) Neck: Positive: neck supple, trachea midline. Negative: JVD/HJR Cardiac: Positive: Reg Rate and Rhythm Lungs: Positive: Ventilated Respirations Neuro: Positive: Other (unresponsive post VF arrest) Abdomen: Positive: Soft, Active Bowel Sounds Skin: Positive: Clear Extremities: Absent: edema - Labs and Meds Cardiac Enzymes 04/15/17 Range/Units 05:15 AST 149 H (5-40) units/L CBC 04/15/17 Range/Units 05:15 WBC 12.5 H (4.5-11.0) K/mm3 RBC 3.38 L (3.65-5.03) M/mm3 Hgb 10.6 L (11.8-15.2) gm/dl Hct 32.7 L (35.5-45.6) % Plt Count 107 L (140-440) K/mm3 Lymph # 1.1 L (1.2-5.4) K/mm3 [place] # 0.4 (0.0-0.8) K/mm3 Eos # 0.2 (0.0-0.4) K/mm3 Baso # 0.0 (0.0-0.1) K/mm3 Comprehensive Metabolic Panel 04/15/17 Range/Units 05:15 Sodium 149 H (137-145) mmol/L Potassium 3.5 L (3.6-5.0) mmol/L Chloride 114.1 H (98-107) mmol/L Carbon Dioxide 21 L (22-30) mmol/L BUN 29 H (9-20) mg/dL Creatinine 0.4 L (0.8-1.5) mg/dL Glucose 128 H (75-100) mg/dL Calcium 8.3 L (8.4-10.2) mg/dL Direct Bilirubin 0.4 H (0-0.2) mg/dL Indirect Bilirubin 0.6 mg/dL AST 149 H (5-40) units/L ALT 182 H (7-56) units/L Alkaline Phosphatase 143 H (35-129) units/L Total Protein 6.4 (6.3-8.2) g/dL Albumin 2.5 L (3.9-5) g/dL
--- NOTE | 2017-04-15 12:05 | Progress Note ---
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 Cultures negative thus far. Still with fevers. Urine is dirty. Will treat with Rocephin. Follow Urine Cultures. 1. Trached and Pegged yesterday. 2. LFT's trending down. Amio discontinued again by cards 3. Continue vent support and management 4. Continue all other cardiac meds 5. Overall prognosis still remains poor given amount of downtime during arrest. Per neuro notes, they have discussed this with a brother. Maybe they need to reach to Divya and Hope, the sisters, as those are the ones who have been designated by family at [employer]. CCT 31 minutes. Subjective Date of service: 04/15/17 Principal diagnosis: septic shock Interval history: Trached and pegged yesterday. tolerated well with no complications. Continues to spike temps. Objective Vital Signs - 12hr 04/15/17 04/15/17 04/15/17 00:00 00:30 01:00 Temperature Pulse Rate 102 H 103 H 102 H Respiratory 35 H 35 H Rate Blood Pressure 104/55 100/55 96/55 O2 Sat by Pulse 96 98 94 Oximetry O2 Sat by Pulse Oximetry [ Assessment] 04/15/17 04/15/17 04/15/17 01:05 02:00 03:00 Temperature Pulse Rate 102 H 99 H 87 Respiratory 32 H 28 H Rate Blood Pressure 96/55 94/61 92/54 O2 Sat by Pulse 98 96 Oximetry O2 Sat by Pulse Oximetry [ Assessment] 04/15/17 04/15/17 04/15/17 03:24 04:00 05:00 Temperature 99.7 F H Pulse Rate 86 93 H Respiratory 27 H 29 H Rate Blood Pressure 93/52 104/66 O2 Sat by Pulse 95 Oximetry O2 Sat by Pulse Oximetry [ Assessment] 04/15/17 04/15/17 04/15/17 06:00 07:00 08:00 Temperature 101.2 F H Pulse Rate 95 H 96 H 103 H Respiratory 26 H 27 H 31 H Rate Blood Pressure 108/61 98/60 109/59 O2 Sat by Pulse 95 97 97 Oximetry O2 Sat by Pulse Oximetry [ Assessment] 04/15/17 04/15/17 04/15/17 08:45 09:00 10:00 Temperature Pulse Rate 102 H 102 H 102 H Respiratory 34 H 28 H Rate Blood Pressure 101/53 97/59 101/62 O2 Sat by Pulse 96 93 95 Oximetry O2 Sat by Pulse Oximetry [ Assessment] 04/15/17 04/15/17 04/15/17 10:02 10:28 10:31 Temperature Pulse Rate 101 H Respiratory 27 H Rate Blood Pressure 101/53 O2 Sat by Pulse Oximetry O2 Sat by Pulse 96 Oximetry [ Assessment] Constitutional: comatose Eyes: injected, other (pinpoint pupils equal and non reactive) ENT: other (orally intubated, ) Neck: supple, no JVD Effort: normal Ascultation: Bilateral: clear, diminished breath sounds ( ) Percussion: Bilateral: not dull Cardiovascular: regular rate and rhythm Gastrointestinal: hypoactive bowel sounds, other (mild distention) Integumentary: other (multiple tattoos) Extremities: no cyanosis Neurologic: unable to assess, other (no posturing on physical examination and stimulation,irregular breathing) CBC and BMP: 04/15/17 05:15 04/15/17 05:15 ABG, PT/INR, D-dimer: ABG POC ABG pH 7.517 (7.35-7.45) H 04/07/17 11:45 POC ABG pCO2 32.1 (35-45) L 04/07/17 11:45 POC ABG pO2 93 (80-105) 04/07/17 11:45 POC ABG HCO3 26.0 04/07/17 11:45 POC ABG Total CO2 27 04/07/17 11:45 POC ABG O2 Sat 98 04/07/17 11:45 PT/INR, D-dimer PT 14.9 Sec. (12.2-14.9) 04/10/17 04:16 INR 1.11 (0.87-1.13) 04/10/17 04:16 Abnormal lab findings: Abnormal Labs 03/29/17 03/29/17 03/29/17 11:35 11:35 11:40 WBC RBC Hgb Hct MCV 98 H MCH 33 H Plt Count Lymph % (Auto) Lymph # Seg Neutrophils % Lymphocytes % (Manual) Monocytes % (Manual) 9.0 H Nucleated RBC % 1.0 H Seg Neutrophils # Seg Neutrophils # Man Monocytes # (Manual) 0.9 H PT 15.8 H INR 1.20 H Activated Clotting Time POC ABG pH POC ABG pCO2 POC ABG pO2 Sodium Potassium 2.7 L* Chloride 95.3 L Carbon Dioxide 17 L BUN Creatinine Glucose 435 H POC Glucose Calcium Magnesium Direct Bilirubin AST ALT Alkaline Phosphatase Total Creatine Kinase CK-MB (CK-2) CK-MB (CK-2) Rel Index Troponin T C-Reactive Protein Total Protein 6.1 L Albumin 3.5 L Triglycerides Ur Specific [place] Urine WBC (Auto) 03/29/17 03/29/17 03/29/17 12:34 13:10 13:25 WBC RBC Hgb Hct MCV MCH Plt Count Lymph % (Auto) Lymph # Seg Neutrophils % Lymphocytes % (Manual) Monocytes % (Manual) Nucleated RBC % Seg Neutrophils # Seg Neutrophils # Man Monocytes # (Manual) PT INR Activated Clotting Time 142 H 169 H 175 H POC ABG pH POC ABG pCO2 POC ABG pO2 Sodium Potassium Chloride Carbon Dioxide BUN Creatinine Glucose POC Glucose Calcium Magnesium Direct Bilirubin AST ALT Alkaline Phosphatase Total Creatine Kinase CK-MB (CK-2) CK-MB (CK-2) Rel Index Troponin T C-Reactive Protein Total Protein Albumin Triglycerides Ur Specific [place] Urine WBC (Auto) 03/29/17 03/29/17 03/29/17 14:50 15:18 19:52 WBC RBC Hgb Hct MCV MCH Plt Count Lymph % (Auto) Lymph # Seg Neutrophils % Lymphocytes % (Manual) Monocytes % (Manual) Nucleated RBC % Seg Neutrophils # Seg Neutrophils # Man Monocytes # (Manual) PT INR Activated Clotting Time 175 H POC ABG pH 7.293 L POC ABG pCO2 POC ABG pO2 602 H Sodium Potassium Chloride Carbon Dioxide BUN Creatinine Glucose POC Glucose Calcium Magnesium Direct Bilirubin AST ALT Alkaline Phosphatase Total Creatine Kinase 7263 H CK-MB (CK-2) > 300.0 H CK-MB (CK-2) Rel Index 4.1 H Troponin T 8.080 H* D C-Reactive Protein Total Protein Albumin Triglycerides 195 H Ur Specific [place] Urine WBC (Auto) 03/30/17 03/30/17 03/30/17 03:50 03:50 06:19 WBC 19.5 H RBC Hgb Hct MCV MCH Plt Count Lymph % (Auto) Lymph # Seg Neutrophils % Lymphocytes % (Manual) 7.0 L Monocytes % (Manual) Nucleated RBC % Seg Neutrophils # Seg Neutrophils # Man 12.7 H Monocytes # (Manual) 1.4 H PT INR Activated Clotting Time POC ABG pH POC ABG pCO2 28.2 L POC ABG pO2 108 H Sodium Potassium Chloride 108.9 H Carbon Dioxide 15 L BUN 25 H Creatinine Glucose 158 H POC Glucose Calcium 8.1 L Magnesium Direct Bilirubin AST ALT Alkaline Phosphatase Total Creatine Kinase 7963 H CK-MB (CK-2) > 300.0 H CK-MB (CK-2) Rel Index Troponin T 6.850 H* C-Reactive Protein Total Protein Albumin Triglycerides Ur Specific [place] Urine WBC (Auto) 03/30/17 03/30/17 03/31/17 09:45 16:04 02:19 WBC RBC Hgb Hct MCV MCH Plt Count Lymph % (Auto) Lymph # Seg Neutrophils % Lymphocytes % (Manual) Monocytes % (Manual) Nucleated RBC % Seg Neutrophils # Seg Neutrophils # Man Monocytes # (Manual) PT INR Activated Clotting Time POC ABG pH POC ABG pCO2 POC ABG pO2 Sodium Potassium Chloride Carbon Dioxide BUN Creatinine Glucose POC Glucose 137 H Calcium Magnesium Direct Bilirubin AST ALT Alkaline Phosphatase Total Creatine Kinase CK-MB (CK-2) CK-MB (CK-2) Rel Index Troponin T C-Reactive Protein 21.80 H Total Protein Albumin Triglycerides Ur Specific [place] 1.031 H Urine WBC (Auto) 03/31/17 03/31/17 03/31/17 03:57 06:54 09:22 WBC RBC Hgb Hct MCV MCH Plt Count Lymph % (Auto) Lymph # Seg Neutrophils % Lymphocytes % (Manual) Monocytes % (Manual) Nucleated RBC % Seg Neutrophils # Seg Neutrophils # Man Monocytes # (Manual) PT INR Activated Clotting Time POC ABG pH 7.475 H POC ABG pCO2 25.4 L POC ABG pO2 62 L Sodium Potassium Chloride Carbon Dioxide 19 L BUN 22 H Creatinine 0.6 L Glucose 148 H POC Glucose 143 H Calcium 8.3 L Magnesium Direct Bilirubin AST ALT Alkaline Phosphatase Total Creatine Kinase CK-MB (CK-2) CK-MB (CK-2) Rel Index Troponin T C-Reactive Protein Total Protein Albumin Triglycerides Ur Specific [place] Urine WBC (Auto) 03/31/17 03/31/17 03/31/17 11:40 17:47 23:38 WBC RBC Hgb Hct MCV MCH Plt Count Lymph % (Auto) Lymph # Seg Neutrophils % Lymphocytes % (Manual) Monocytes % (Manual) Nucleated RBC % Seg Neutrophils # Seg Neutrophils # Man Monocytes # (Manual) PT INR Activated Clotting Time POC ABG pH POC ABG pCO2 POC ABG pO2 Sodium Potassium Chloride Carbon Dioxide BUN Creatinine Glucose POC Glucose 127 H 137 H 148 H Calcium Magnesium Direct Bilirubin AST ALT Alkaline Phosphatase Total Creatine Kinase CK-MB (CK-2) CK-MB (CK-2) Rel Index Troponin T C-Reactive Protein Total Protein Albumin Triglycerides Ur Specific [place] Urine WBC (Auto) 04/01/17 04/01/17 04/01/17 04:29 05:01 11:54 WBC RBC Hgb Hct MCV MCH Plt Count Lymph % (Auto) Lymph # Seg Neutrophils % Lymphocytes % (Manual) Monocytes % (Manual) Nucleated RBC % Seg Neutrophils # Seg Neutrophils # Man Monocytes # (Manual) PT INR Activated Clotting Time POC ABG pH 7.513 H POC ABG pCO2 22.1 L POC ABG pO2 64 L Sodium Potassium Chloride Carbon Dioxide BUN Creatinine Glucose POC Glucose 121 H Calcium Magnesium Direct Bilirubin AST ALT Alkaline Phosphatase Total Creatine Kinase CK-MB (CK-2) CK-MB (CK-2) Rel Index Troponin T C-Reactive Protein Total Protein Albumin Triglycerides 151 H Ur Specific [place] Urine WBC (Auto) 04/01/17 04/02/17 04/02/17 18:17 00:11 04:52 WBC RBC Hgb Hct MCV MCH Plt Count Lymph % (Auto) Lymph # Seg Neutrophils % Lymphocytes % (Manual) Monocytes % (Manual) Nucleated RBC % Seg Neutrophils # Seg Neutrophils # Man Monocytes # (Manual) PT INR Activated Clotting Time POC ABG pH 7.524 H POC ABG pCO2 25.5 L POC ABG pO2 66 L Sodium Potassium Chloride Carbon Dioxide BUN Creatinine Glucose POC Glucose 117 H 122 H Calcium Magnesium Direct Bilirubin AST ALT Alkaline Phosphatase Total Creatine Kinase CK-MB (CK-2) CK-MB (CK-2) Rel Index Troponin T C-Reactive Protein Total Protein Albumin Triglycerides Ur Specific [place] Urine WBC (Auto) 04/02/17 04/02/17 04/02/17 05:18 10:41 12:19 WBC RBC Hgb Hct MCV MCH Plt Count Lymph % (Auto) Lymph # Seg Neutrophils % Lymphocytes % (Manual) Monocytes % (Manual) Nucleated RBC % Seg Neutrophils # Seg Neutrophils # Man Monocytes # (Manual) PT INR Activated Clotting Time POC ABG pH 7.534 H POC ABG pCO2 27.4 L POC ABG pO2 Sodium Potassium Chloride Carbon Dioxide BUN Creatinine Glucose POC Glucose 132 H 129 H Calcium Magnesium Direct Bilirubin AST ALT Alkaline Phosphatase Total Creatine Kinase CK-MB (CK-2) CK-MB (CK-2) Rel Index Troponin T C-Reactive Protein Total Protein Albumin Triglycerides Ur Specific [place] Urine WBC (Auto) 04/02/17 04/03/17 04/03/17 18:05 00:08 05:09 WBC RBC Hgb Hct MCV MCH Plt Count Lymph % (Auto) Lymph # Seg Neutrophils % Lymphocytes % (Manual) Monocytes % (Manual) Nucleated RBC % Seg Neutrophils # Seg Neutrophils # Man Monocytes # (Manual) PT INR Activated Clotting Time POC ABG pH 7.455 H POC ABG pCO2 33.2 L POC ABG pO2 120 H Sodium Potassium Chloride Carbon Dioxide BUN Creatinine Glucose POC Glucose 136 H 128 H Calcium Magnesium Direct Bilirubin AST ALT Alkaline Phosphatase Total Creatine Kinase CK-MB (CK-2) CK-MB (CK-2) Rel Index Troponin T C-Reactive Protein Total Protein Albumin Triglycerides Ur Specific [place] Urine WBC (Auto) 04/03/17 04/03/17 04/03/17 06:32 11:54 12:16 WBC 11.9 H RBC Hgb Hct MCV MCH Plt Count 125 L Lymph % (Auto) 4.8 L Lymph # 0.6 L Seg Neutrophils % 86.7 H Lymphocytes % (Manual) Monocytes % (Manual) Nucleated RBC % Seg Neutrophils # 10.3 H Seg Neutrophils # Man Monocytes # (Manual) PT INR Activated Clotting Time POC ABG pH POC ABG pCO2 POC ABG pO2 Sodium Potassium Chloride Carbon Dioxide BUN Creatinine Glucose POC Glucose 138 H 143 H Calcium Magnesium Direct Bilirubin AST ALT Alkaline Phosphatase Total Creatine Kinase CK-MB (CK-2) CK-MB (CK-2) Rel Index Troponin T C-Reactive Protein Total Protein Albumin Triglycerides Ur Specific [place] Urine WBC (Auto) 04/03/17 04/03/17 04/04/17 17:33 23:59 04:34 WBC RBC Hgb Hct MCV MCH Plt Count Lymph % (Auto) Lymph # Seg Neutrophils % Lymphocytes % (Manual) Monocytes % (Manual) Nucleated RBC % Seg Neutrophils # Seg Neutrophils # Man Monocytes # (Manual) PT INR Activated Clotting Time POC ABG pH 7.457 H POC ABG pCO2 29.8 L POC ABG pO2 76 L Sodium Potassium Chloride Carbon Dioxide BUN Creatinine Glucose POC Glucose 130 H 155 H Calcium Magnesium Direct Bilirubin AST ALT Alkaline Phosphatase Total Creatine Kinase CK-MB (CK-2) CK-MB (CK-2) Rel Index Troponin T C-Reactive Protein Total Protein Albumin Triglycerides Ur Specific [place] Urine WBC (Auto) 04/04/17 04/04/17 04/04/17 05:27 12:22 18:18 WBC RBC Hgb Hct MCV MCH Plt Count Lymph % (Auto) Lymph # Seg Neutrophils % Lymphocytes % (Manual) Monocytes % (Manual) Nucleated RBC % Seg Neutrophils # Seg Neutrophils # Man Monocytes # (Manual) PT INR Activated Clotting Time POC ABG pH POC ABG pCO2 POC ABG pO2 Sodium Potassium Chloride Carbon Dioxide BUN Creatinine Glucose POC Glucose 164 H 146 H 130 H Calcium Magnesium Direct Bilirubin AST ALT Alkaline Phosphatase Total Creatine Kinase CK-MB (CK-2) CK-MB (CK-2) Rel Index Troponin T C-Reactive Protein Total Protein Albumin Triglycerides Ur Specific [place] Urine WBC (Auto) 04/05/17 04/05/17 04/05/17 04:43 05:28 11:36 WBC RBC Hgb Hct MCV MCH Plt Count Lymph % (Auto) Lymph # Seg Neutrophils % Lymphocytes % (Manual) Monocytes % (Manual) Nucleated RBC % Seg Neutrophils # Seg Neutrophils # Man Monocytes # (Manual) PT INR Activated Clotting Time POC ABG pH 7.479 H POC ABG pCO2 33.5 L POC ABG pO2 76 L Sodium Potassium Chloride Carbon Dioxide BUN Creatinine Glucose POC Glucose 145 H 136 H Calcium Magnesium Direct Bilirubin AST ALT Alkaline Phosphatase Total Creatine Kinase CK-MB (CK-2) CK-MB (CK-2) Rel Index Troponin T C-Reactive Protein Total Protein Albumin Triglycerides Ur Specific [place] Urine WBC (Auto) 04/05/17 04/06/17 04/06/17 17:58 00:16 05:26 WBC RBC Hgb Hct MCV MCH Plt Count Lymph % (Auto) Lymph # Seg Neutrophils % Lymphocytes % (Manual) Monocytes % (Manual) Nucleated RBC % Seg Neutrophils # Seg Neutrophils # Man Monocytes # (Manual) PT INR Activated Clotting Time POC ABG pH POC ABG pCO2 POC ABG pO2 Sodium Potassium Chloride Carbon Dioxide BUN Creatinine Glucose POC Glucose 130 H 159 H 146 H Calcium Magnesium Direct Bilirubin AST ALT Alkaline Phosphatase Total Creatine Kinase CK-MB (CK-2) CK-MB (CK-2) Rel Index Troponin T C-Reactive Protein Total Protein Albumin Triglycerides Ur Specific [place] Urine WBC (Auto) 04/06/17 04/06/17 04/07/17 13:11 16:54 11:45 WBC RBC Hgb Hct MCV MCH Plt Count Lymph % (Auto) Lymph # Seg Neutrophils % Lymphocytes % (Manual) Monocytes % (Manual) Nucleated RBC % Seg Neutrophils # Seg Neutrophils # Man Monocytes # (Manual) PT INR Activated Clotting Time POC ABG pH 7.517 H POC ABG pCO2 32.1 L POC ABG pO2 Sodium Potassium Chloride Carbon Dioxide BUN Creatinine Glucose POC Glucose 132 H 123 H Calcium Magnesium Direct Bilirubin AST ALT Alkaline Phosphatase Total Creatine Kinase CK-MB (CK-2) CK-MB (CK-2) Rel Index Troponin T C-Reactive Protein Total Protein Albumin Triglycerides Ur Specific [place] Urine WBC (Auto) 04/07/17 04/07/17 04/07/17 12:51 17:40 23:55 WBC RBC Hgb Hct MCV MCH Plt Count Lymph % (Auto) Lymph # Seg Neutrophils % Lymphocytes % (Manual) Monocytes % (Manual) Nucleated RBC % Seg Neutrophils # Seg Neutrophils # Man Monocytes # (Manual) PT INR Activated Clotting Time POC ABG pH POC ABG pCO2 POC ABG pO2 Sodium Potassium Chloride Carbon Dioxide BUN Creatinine Glucose POC Glucose 138 H 154 H 143 H Calcium Magnesium Direct Bilirubin AST ALT Alkaline Phosphatase Total Creatine Kinase CK-MB (CK-2) CK-MB (CK-2) Rel Index Troponin T C-Reactive Protein Total Protein Albumin Triglycerides Ur Specific [place] Urine WBC (Auto) 04/08/17 04/08/17 04/08/17 05:27 11:14 17:44 WBC RBC Hgb Hct MCV MCH Plt Count Lymph % (Auto) Lymph # Seg Neutrophils % Lymphocytes % (Manual) Monocytes % (Manual) Nucleated RBC % Seg Neutrophils # Seg Neutrophils # Man Monocytes # (Manual) PT INR Activated Clotting Time POC ABG pH POC ABG pCO2 POC ABG pO2 Sodium Potassium Chloride Carbon Dioxide BUN Creatinine Glucose POC Glucose 142 H 153 H 129 H Calcium Magnesium Direct Bilirubin AST ALT Alkaline Phosphatase Total Creatine Kinase CK-MB (CK-2) CK-MB (CK-2) Rel Index Troponin T C-Reactive Protein Total Protein Albumin Triglycerides Ur Specific [place] Urine WBC (Auto) 04/09/17 04/09/17 04/09/17 08:20 11:21 17:37 WBC RBC Hgb Hct MCV MCH Plt Count Lymph % (Auto) Lymph # Seg Neutrophils % Lymphocytes % (Manual) Monocytes % (Manual) Nucleated RBC % Seg Neutrophils # Seg Neutrophils # Man Monocytes # (Manual) PT INR Activated Clotting Time POC ABG pH POC ABG pCO2 POC ABG pO2 Sodium 147 H Potassium Chloride 108.8 H Carbon Dioxide BUN 39 H Creatinine 0.5 L Glucose 138 H POC Glucose 152 H 109 H Calcium Magnesium Direct Bilirubin AST ALT Alkaline Phosphatase Total Creatine Kinase CK-MB (CK-2) CK-MB (CK-2) Rel Index Troponin T C-Reactive Protein Total Protein Albumin Triglycerides Ur Specific [place] Urine WBC (Auto) 04/10/17 04/10/17 04/10/17 00:13 04:16 04:16 WBC RBC Hgb 11.5 L Hct MCV 96 H MCH Plt Count 103 L Lymph % (Auto) 11.1 L Lymph # Seg Neutrophils % 81.5 H Lymphocytes % (Manual) Monocytes % (Manual) Nucleated RBC % Seg Neutrophils # 8.8 H Seg Neutrophils # Man Monocytes # (Manual) PT INR Activated Clotting Time POC ABG pH POC ABG pCO2 POC ABG pO2 Sodium 148 H Potassium Chloride 109.0 H Carbon Dioxide BUN 36 H Creatinine 0.5 L Glucose 131 H POC Glucose 127 H Calcium 8.1 L Magnesium 2.40 H Direct Bilirubin AST 206 H ALT 228 H Alkaline Phosphatase 178 H Total Creatine Kinase CK-MB (CK-2) CK-MB (CK-2) Rel Index Troponin T C-Reactive Protein Total Protein Albumin 2.8 L Triglycerides Ur Specific [place] Urine WBC (Auto) 04/10/17 04/10/17 04/10/17 06:01 11:57 18:27 WBC RBC Hgb Hct MCV MCH Plt Count Lymph % (Auto) Lymph # Seg Neutrophils % Lymphocytes % (Manual) Monocytes % (Manual) Nucleated RBC % Seg Neutrophils # Seg Neutrophils # Man Monocytes # (Manual) PT INR Activated Clotting Time POC ABG pH POC ABG pCO2 POC ABG pO2 Sodium Potassium Chloride Carbon Dioxide BUN Creatinine Glucose POC Glucose 108 H 154 H 130 H Calcium Magnesium Direct Bilirubin AST ALT Alkaline Phosphatase Total Creatine Kinase CK-MB (CK-2) CK-MB (CK-2) Rel Index Troponin T C-Reactive Protein Total Protein Albumin Triglycerides Ur Specific [place] Urine WBC (Auto) 04/11/17 04/11/17 04/12/17 12:25 17:10 00:22 WBC RBC Hgb Hct MCV MCH Plt Count Lymph % (Auto) Lymph # Seg Neutrophils % Lymphocytes % (Manual) Monocytes % (Manual) Nucleated RBC % Seg Neutrophils # Seg Neutrophils # Man Monocytes # (Manual) PT INR Activated Clotting Time POC ABG pH POC ABG pCO2 POC ABG pO2 Sodium Potassium Chloride Carbon Dioxide BUN Creatinine Glucose POC Glucose 107 H 129 H 128 H Calcium Magnesium Direct Bilirubin AST ALT Alkaline Phosphatase Total Creatine Kinase CK-MB (CK-2) CK-MB (CK-2) Rel Index Troponin T C-Reactive Protein Total Protein Albumin Triglycerides Ur Specific [place] Urine WBC (Auto) 04/12/17 04/12/17 04/12/17 05:00 11:57 17:47 WBC RBC Hgb Hct MCV MCH Plt Count Lymph % (Auto) Lymph # Seg Neutrophils % Lymphocytes % (Manual) Monocytes % (Manual) Nucleated RBC % Seg Neutrophils # Seg Neutrophils # Man Monocytes # (Manual) PT INR Activated Clotting Time POC ABG pH POC ABG pCO2 POC ABG pO2 Sodium Potassium Chloride Carbon Dioxide BUN Creatinine Glucose POC Glucose 140 H 142 H Calcium Magnesium Direct Bilirubin AST 158 H ALT 184 H Alkaline Phosphatase 170 H Total Creatine Kinase CK-MB (CK-2) CK-MB (CK-2) Rel Index Troponin T C-Reactive Protein Total Protein Albumin 2.8 L Triglycerides Ur Specific [place] Urine WBC (Auto) 04/12/17 04/12/17 04/13/17 21:36 21:36 01:37 WBC RBC Hgb Hct MCV MCH Plt Count Lymph % (Auto) Lymph # Seg Neutrophils % Lymphocytes % (Manual) Monocytes % (Manual) Nucleated RBC % Seg Neutrophils # Seg Neutrophils # Man Monocytes # (Manual) PT INR Activated Clotting Time POC ABG pH POC ABG pCO2 POC ABG pO2 Sodium Potassium Chloride Carbon Dioxide BUN Creatinine Glucose POC Glucose 126 H Calcium Magnesium Direct Bilirubin AST ALT Alkaline Phosphatase Total Creatine Kinase 1404 H CK-MB (CK-2) 8.0 H CK-MB (CK-2) Rel Index Troponin T 0.767 H* C-Reactive Protein Total Protein Albumin Triglycerides Ur Specific [place] Urine WBC (Auto) 04/13/17 04/13/17 04/13/17 04:45 04:52 12:17 WBC RBC Hgb Hct MCV MCH Plt Count Lymph % (Auto) Lymph # Seg Neutrophils % Lymphocytes % (Manual) Monocytes % (Manual) Nucleated RBC % Seg Neutrophils # Seg Neutrophils # Man Monocytes # (Manual) PT INR Activated Clotting Time POC ABG pH POC ABG pCO2 POC ABG pO2 Sodium 148 H Potassium Chloride 112.8 H Carbon Dioxide BUN 33 H Creatinine 0.4 L Glucose 121 H POC Glucose 126 H 149 H Calcium Magnesium Direct Bilirubin AST 160 H ALT 189 H Alkaline Phosphatase 166 H Total Creatine Kinase CK-MB (CK-2) CK-MB (CK-2) Rel Index Troponin T C-Reactive Protein Total Protein Albumin 2.6 L Triglycerides Ur Specific [place] Urine WBC (Auto) 04/13/17 04/14/17 04/14/17 17:45 00:20 00:45 WBC RBC Hgb Hct MCV MCH Plt Count Lymph % (Auto) Lymph # Seg Neutrophils % Lymphocytes % (Manual) Monocytes % (Manual) Nucleated RBC % Seg Neutrophils # Seg Neutrophils # Man Monocytes # (Manual) PT INR Activated Clotting Time POC ABG pH POC ABG pCO2 POC ABG pO2 Sodium Potassium Chloride Carbon Dioxide BUN Creatinine Glucose POC Glucose 130 H 144 H 144 H Calcium Magnesium Direct Bilirubin AST ALT Alkaline Phosphatase Total Creatine Kinase CK-MB (CK-2) CK-MB (CK-2) Rel Index Troponin T C-Reactive Protein Total Protein Albumin Triglycerides Ur Specific [place] Urine WBC (Auto) 04/14/17 04/14/17 04/14/17 05:40 11:06 11:31 WBC RBC Hgb Hct MCV MCH Plt Count Lymph % (Auto) Lymph # Seg Neutrophils % Lymphocytes % (Manual) Monocytes % (Manual) Nucleated RBC % Seg Neutrophils # Seg Neutrophils # Man Monocytes # (Manual) PT INR Activated Clotting Time POC ABG pH POC ABG pCO2 POC ABG pO2 Sodium Potassium Chloride Carbon Dioxide BUN Creatinine Glucose POC Glucose 139 H 123 H Calcium Magnesium Direct Bilirubin AST ALT Alkaline Phosphatase Total Creatine Kinase CK-MB (CK-2) CK-MB (CK-2) Rel Index Troponin T C-Reactive Protein Total Protein Albumin Triglycerides Ur Specific [place] 1.033 H Urine WBC (Auto) > 182.0 H 04/14/17 04/15/17 04/15/17 23:52 05:15 05:15 WBC 12.5 H RBC 3.38 L Hgb 10.6 L Hct 32.7 L MCV 97 H MCH Plt Count 107 L Lymph % (Auto) 8.7 L Lymph # 1.1 L Seg Neutrophils % 86.1 H Lymphocytes % (Manual) Monocytes % (Manual) Nucleated RBC % Seg Neutrophils # 10.7 H Seg Neutrophils # Man Monocytes # (Manual) PT INR Activated Clotting Time POC ABG pH POC ABG pCO2 POC ABG pO2 Sodium 149 H Potassium 3.5 L Chloride 114.1 H Carbon Dioxide 21 L BUN 29 H Creatinine 0.4 L Glucose 128 H POC Glucose 133 H Calcium 8.3 L Magnesium Direct Bilirubin 0.4 H AST 149 H ALT 182 H Alkaline Phosphatase 143 H Total Creatine Kinase CK-MB (CK-2) CK-MB (CK-2) Rel Index Troponin T C-Reactive Protein Total Protein Albumin 2.5 L Triglycerides Ur Specific [place] Urine WBC (Auto) 04/15/17 05:25 WBC RBC Hgb Hct MCV MCH Plt Count Lymph % (Auto) Lymph # Seg Neutrophils % Lymphocytes % (Manual) Monocytes % (Manual) Nucleated RBC % Seg Neutrophils # Seg Neutrophils # Man Monocytes # (Manual) PT INR Activated Clotting Time POC ABG pH POC ABG pCO2 POC ABG pO2 Sodium Potassium Chloride Carbon Dioxide BUN Creatinine Glucose POC Glucose 133 H Calcium Magnesium Direct Bilirubin AST ALT Alkaline Phosphatase Total Creatine Kinase CK-MB (CK-2) CK-MB (CK-2) Rel Index Troponin T C-Reactive Protein Total Protein Albumin Triglycerides Ur Specific [place] Urine WBC (Auto)
--- NOTE | 2017-04-15 16:34 | Progress Note ---
Assessment and Plan - Patient Problems (1) Anoxic brain injury Current Visit: Yes Status: Acute Plan to address problem: s/p trach/Peg. No apparent complications. Will sign off. Please call with questions. Subjective Date of service: 04/15/17 Patient Reports: Positive: other (patient with altered mental status. Unable to participate in history. staff reports no new issues related to trach/PEG) Objective Vital Signs - 12hr 04/15/17 04/15/17 04/15/17 05:00 06:00 07:00 Temperature Pulse Rate 93 H 95 H 96 H Pulse Rate [ From Monitor] Respiratory 29 H 26 H 27 H Rate Blood Pressure 104/66 108/61 98/60 O2 Sat by Pulse 95 97 Oximetry O2 Sat by Pulse Oximetry [ Assessment] 04/15/17 04/15/17 04/15/17 08:00 08:45 09:00 Temperature 101.2 F H Pulse Rate 103 H 102 H 102 H Pulse Rate [ 101 H From Monitor] Respiratory 30 H 34 H Rate Blood Pressure 109/59 101/53 97/59 O2 Sat by Pulse 98 96 93 Oximetry O2 Sat by Pulse Oximetry [ Assessment] 04/15/17 04/15/17 04/15/17 10:00 10:02 10:28 Temperature Pulse Rate 102 H Pulse Rate [ From Monitor] Respiratory 28 H 27 H Rate Blood Pressure 101/62 O2 Sat by Pulse 95 Oximetry O2 Sat by Pulse 96 Oximetry [ Assessment] 04/15/17 04/15/17 04/15/17 10:31 11:00 11:28 Temperature Pulse Rate 101 H 92 H Pulse Rate [ From Monitor] Respiratory 27 H 26 H Rate Blood Pressure 101/53 105/51 O2 Sat by Pulse 94 Oximetry O2 Sat by Pulse Oximetry [ Assessment] 04/15/17 04/15/17 04/15/17 11:55 12:00 13:00 Temperature 99.2 F Pulse Rate 87 83 89 Pulse Rate [ 86 From Monitor] Respiratory 25 H 26 H Rate Blood Pressure 163/76 83/43 100/59 O2 Sat by Pulse 99 93 Oximetry O2 Sat by Pulse Oximetry [ Assessment] 04/15/17 04/15/17 14:00 14:37 Temperature Pulse Rate 83 86 Pulse Rate [ From Monitor] Respiratory 24 Rate Blood Pressure 100/60 83/43 O2 Sat by Pulse Oximetry O2 Sat by Pulse Oximetry [ Assessment] - General physical appearance well developed, well nourished, other (unresponsive) - ENT other (trach in position. No signs of bleeding. ) - Respiratory normal expansion, normal respiratory effort, other (making spontaneous effort at breathing with good volumes. equal BS) - Abdomen soft, not distended, not guarding, not rigid, other (TF currently running. No signs of problems. PEG in place - not tight. No drainage around PEG.) - Integumentary no rash - Labs 04/15/17 05:15 04/15/17 05:15 Diabetes panel 04/15/17 Range/Units 05:15 Sodium 149 H (137-145) mmol/L Potassium 3.5 L (3.6-5.0) mmol/L Chloride 114.1 H (98-107) mmol/L Carbon Dioxide 21 L (22-30) mmol/L BUN 29 H (9-20) mg/dL Creatinine 0.4 L (0.8-1.5) mg/dL Glucose 128 H (75-100) mg/dL Calcium 8.3 L (8.4-10.2) mg/dL AST 149 H (5-40) units/L ALT 182 H (7-56) units/L Alkaline Phosphatase 143 H (35-129) units/L Total Protein 6.4 (6.3-8.2) g/dL Albumin 2.5 L (3.9-5) g/dL Calcium panel 04/15/17 Range/Units 05:15 Calcium 8.3 L (8.4-10.2) mg/dL Albumin 2.5 L (3.9-5) g/dL Pituitary panel 04/15/17 Range/Units 05:15 Sodium 149 H (137-145) mmol/L Potassium 3.5 L (3.6-5.0) mmol/L Chloride 114.1 H (98-107) mmol/L Carbon Dioxide 21 L (22-30) mmol/L BUN 29 H (9-20) mg/dL Creatinine 0.4 L (0.8-1.5) mg/dL Glucose 128 H (75-100) mg/dL Calcium 8.3 L (8.4-10.2) mg/dL Adrenal panel 04/15/17 Range/Units 05:15 Sodium 149 H (137-145) mmol/L Potassium 3.5 L (3.6-5.0) mmol/L Chloride 114.1 H (98-107) mmol/L Carbon Dioxide 21 L (22-30) mmol/L BUN 29 H (9-20) mg/dL Creatinine 0.4 L (0.8-1.5) mg/dL Glucose 128 H (75-100) mg/dL Calcium 8.3 L (8.4-10.2) mg/dL Total Bilirubin 1.00 (0.1-1.2) mg/dL AST 149 H (5-40) units/L ALT 182 H (7-56) units/L Alkaline Phosphatase 143 H (35-129) units/L Total Protein 6.4 (6.3-8.2) g/dL Albumin 2.5 L (3.9-5) g/dL - Imaging Chest x-ray: report reviewed, image reviewed
[2017-04-16] MEDS: LOPRESSOR PO SCH ×5 (01:45→23:41)
[2017-04-16 03:47] LABS: Basophils % (Auto) 0.4 % (0.0-1.8); Eosinophils # (Auto) 0.2 K/mm3 (0.0-0.4); Eosinophils % (Auto) 2.1 % (0.0-4.3); Hematocrit 32.4 % (35.5-45.6); Hemoglobin 10.5 gm/dl (11.8-15.2); Lymphocytes # (Auto) 0.6 K/mm3 (1.2-5.4); Lymphocytes % (Auto) 6.7 % (13.4-35.0); Mean Corpuscular HGB Conc 33 % (32-34); Mean Corpuscular Hemoglobin 31 pg (28-32); Mean Corpuscular Volume 96 fl (84-94); Monocytes # (Auto) 0.4 K/mm3 (0.0-0.8); Platelet Count 106 K/mm3 (140-440); Red Blood Count 3.39 M/mm3 (3.65-5.03)
[2017-04-16 04:10] LABS: BUN/Creatinine Ratio 90; Blood Urea Nitrogen 27 mg/dL (9-20); Calcium 8.3 mg/dL (8.4-10.2); Hemolysis Index 2
[2017-04-16] MEDS: TYLENOL PO PRN ×2 (06:45→23:40)
[2017-04-16] MEDS: NITRO DUR TD SCH (07:16)
--- NOTE | 2017-04-16 08:29 | Progress Note ---
Assessment and Plan Assessment and plan: 46 YO Male with No PMH who was admitted through emergency room with history of V. fib cardiac arrest status post CPR per ACLS protocol, acute respiratory failure vent dependent , had tracheostomy and PEG placement, awaiting LTAC evaluation and placement --Acute hypoxic respiratory failure;s/p tracheostomy on vent Plavix resumed --Status post cardiac arrest: Status post CPR, unresponsive, supportive care --Anoxic brain injury; patient has been off sedation and still obtunded and nonresponsive. Poor prognosis, s/p trach and PEG --Acute anterior STEMI ; status post PCI Cardiology following , continue current cardiac medications --Hypertension ; closely monitor , continue current antihypertensives and when necessary medications --MRSA pneumonia /aspiration pneumonia contact isolation, ID following completed zyvox on 04/10 --Cardiogenic shock; resolved Currently off pressors, closely monitor --Hypokalemia /hypernatremia Corrected --DVT prophylaxis; heparin --Full CODE STATUS --DC planning. Case management Possible SNF versus rehabilitation unable to go to LTACH as has no insurance medicare disability application in process of being filled out by family Critical care time 31 minutes The high probability of a clinically significant, sudden or life threatening deterioration of the [Pulmonary, cardiac, renal] system(s) required my full and direct attention, intervention and personal management. The aggregate critical care time was [31] minutes. This time is in addition to time spent performing reported procedures but includes the following: [x] Data Review and interpretation [x] Patient assessment and monitoring of vital signs [x] Documentation [x] Medication orders and management History Interval history: Patient seen and evaluated, medical records reviewed No new events reported by nursing staff ,Febrile,T max 102.1 Status post trach and PEG, patient is comfortable noncommunicative Vital signs reviewed Hospitalist Physical - Constitutional Vitals: Temp Pulse Resp BP Pulse Ox 100.1 F H 106 H 30 H 103/62 99 04/16/17 08:00 04/16/17 08:00 04/16/17 08:00 04/16/17 08:00 04/16/17 08:00 General appearance: Present: no acute distress, well-nourished, other ( tracheostomy on ventilatory support) - EENT Eyes: Present: PERRL - Neck Neck: Present: supple, normal ROM - Respiratory Respiratory effort: normal Respiratory: bilateral: diminished, rhonchi, negative: rales, wheezing - Cardiovascular Rhythm: regular Heart Sounds: Present: S1 & S2 - Extremities Extremities: no ischemia, No edema - Abdominal General gastrointestinal: soft, non-tender, non-distended, normal bowel sounds - Integumentary Integumentary: Present: clear, warm - Psychiatric Psychiatric: other (noncommunicative) - Neurologic Neurologic: other (noncommunicative) Results - Labs CBC & Chem 7: 04/16/17 03:17 04/16/17 03:17 Labs: Laboratory Last Values WBC 9.5 K/mm3 (4.5-11.0) 04/16/17 03:17 RBC 3.39 M/mm3 (3.65-5.03) L 04/16/17 03:17 Hgb 10.5 gm/dl (11.8-15.2) L 04/16/17 03:17 Hct 32.4 % (35.5-45.6) L 04/16/17 03:17 MCV 96 fl (84-94) H 04/16/17 03:17 MCH 31 pg (28-32) 04/16/17 03:17 MCHC 33 % (32-34) 04/16/17 03:17 RDW 14.0 % (13.2-15.2) 04/16/17 03:17 Plt Count 106 K/mm3 (140-440) L 04/16/17 03:17 Lymph % (Auto) 6.7 % (13.4-35.0) L 04/16/17 03:17 [place] % (Auto) 4.0 % (0.0-7.3) 04/16/17 03:17 Eos % (Auto) 2.1 % (0.0-4.3) 04/16/17 03:17 Baso % (Auto) 0.4 % (0.0-1.8) 04/16/17 03:17 Lymph # 0.6 K/mm3 (1.2-5.4) L 04/16/17 03:17 [place] # 0.4 K/mm3 (0.0-0.8) 04/16/17 03:17 Eos # 0.2 K/mm3 (0.0-0.4) 04/16/17 03:17 Baso # 0.0 K/mm3 (0.0-0.1) 04/16/17 03:17 Add Manual Diff Complete 03/30/17 03:50 Total Counted 100 03/30/17 03:50 Seg Neutrophils % 86.8 % (40.0-70.0) H 04/16/17 03:17 Seg Neuts % (Manual) 65.0 % (40.0-70.0) 03/30/17 03:50 Band Neutrophils % 17.0 % 03/30/17 03:50 Lymphocytes % (Manual) 7.0 % (13.4-35.0) L 03/30/17 03:50 Reactive Lymphs % (Man) 0 % 03/30/17 03:50 Monocytes % (Manual) 7.0 % (0.0-7.3) 03/30/17 03:50 Eosinophils % (Manual) 0 % (0.0-4.3) 03/30/17 03:50 Basophils % (Manual) 0 % (0.0-1.8) 03/30/17 03:50 Metamyelocytes % 4.0 % 03/30/17 03:50 Myelocytes % 0 % 03/30/17 03:50 Promyelocytes % 0 % 03/30/17 03:50 Blast Cells % 0 % 03/30/17 03:50 Nucleated RBC % Not Reportable 03/30/17 03:50 Seg Neutrophils # 8.2 K/mm3 (1.8-7.7) H 04/16/17 03:17 Seg Neutrophils # Man 12.7 K/mm3 (1.8-7.7) H 03/30/17 03:50 Band Neutrophils # 3.3 K/mm3 03/30/17 03:50 Lymphocytes # (Manual) 1.4 K/mm3 (1.2-5.4) 03/30/17 03:50 Abs React Lymphs (Man) 0.0 K/mm3 03/30/17 03:50 Monocytes # (Manual) 1.4 K/mm3 (0.0-0.8) H 03/30/17 03:50 Eosinophils # (Manual) 0.0 K/mm3 (0.0-0.4) 03/30/17 03:50 Basophils # (Manual) 0.0 K/mm3 (0.0-0.1) 03/30/17 03:50 Metamyelocytes # 0.8 K/mm3 03/30/17 03:50 Myelocytes # 0.0 K/mm3 03/30/17 03:50 Promyelocytes # 0.0 K/mm3 03/30/17 03:50 Blast Cells # 0.0 K/mm3 03/30/17 03:50 WBC Morphology Not Reportable 03/30/17 03:50 Hypersegmented Neuts Not Reportable 03/30/17 03:50 Hyposegmented Neuts Not Reportable 03/30/17 03:50 Hypogranular Neuts Not Reportable 03/30/17 03:50 Smudge Cells Not Reportable 03/30/17 03:50 Toxic Granulation Not Reportable 03/30/17 03:50 Toxic Vacuolation Not Reportable 03/30/17 03:50 Dohle Bodies Not Reportable 03/30/17 03:50 Pelger-Huet Anomaly Not Reportable 03/30/17 03:50 Sherry Rods Not Reportable 03/30/17 03:50 Platelet Estimate Appears normal 03/30/17 03:50 Clumped Platelets Not Reportable 03/30/17 03:50 Plt Clumps, EDTA Not Reportable 03/30/17 03:50 Large Platelets Not Reportable 03/30/17 03:50 Giant Platelets Not Reportable 03/30/17 03:50 Platelet Satelliting Not Reportable 03/30/17 03:50 Plt Morphology Comment Not Reportable 03/30/17 03:50 RBC Morphology Not Reportable 03/30/17 03:50 Dimorphic RBCs Not Reportable 03/30/17 03:50 Polychromasia Not Reportable 03/30/17 03:50 Hypochromasia Not Reportable 03/30/17 03:50 Poikilocytosis Not Reportable 03/30/17 03:50 Anisocytosis Few 03/30/17 03:50 Microcytosis Not Reportable 03/30/17 03:50 Macrocytosis Not Reportable 03/30/17 03:50 Spherocytes Not Reportable 03/30/17 03:50 Pappenheimer Bodies Not Reportable 03/30/17 03:50 Sickle Cells Not Reportable 03/30/17 03:50 Target Cells Not Reportable 03/30/17 03:50 Tear Drop Cells Not Reportable 03/30/17 03:50 Ovalocytes Not Reportable 03/30/17 03:50 Helmet Cells Not Reportable 03/30/17 03:50 [place] Bodies Not Reportable 03/30/17 03:50 [place] Rings Not Reportable 03/30/17 03:50 Nusrat Cells Not Reportable 03/30/17 03:50 Bite Cells Not Reportable 03/30/17 03:50 Crenated Cell Not Reportable 03/30/17 03:50 Elliptocytes Not Reportable 03/30/17 03:50 Acanthocytes (Spur) Not Reportable 03/30/17 03:50 Rouleaux Not Reportable 03/30/17 03:50 Hemoglobin C Crystals Not Reportable 03/30/17 03:50 Schistocytes Not Reportable 03/30/17 03:50 Malaria parasites Not Reportable 03/30/17 03:50 Jermaine Bodies Not Reportable 03/30/17 03:50 Hem Pathologist Commnt No 03/30/17 03:50 PT 14.9 Sec. (12.2-14.9) 04/10/17 04:16 INR 1.11 (0.87-1.13) 04/10/17 04:16 APTT 27.8 Sec. (24.2-36.6) 04/10/17 04:16 Activated Clotting Time 92 (74-137) 03/29/17 17:47 POC ABG pH 7.517 (7.35-7.45) H 04/07/17 11:45 POC ABG pCO2 32.1 (35-45) L 04/07/17 11:45 POC ABG pO2 93 (80-105) 04/07/17 11:45 POC ABG HCO3 26.0 04/07/17 11:45 POC ABG Total CO2 27 04/07/17 11:45 POC ABG O2 Sat 98 04/07/17 11:45 POC ABG Base Excess 3 04/07/17 11:45 FiO2 35 % 04/07/17 11:45 Sodium 149 mmol/L (137-145) H 04/16/17 03:17 Potassium 3.6 mmol/L (3.6-5.0) 04/16/17 03:17 Chloride 111.1 mmol/L (98-107) H 04/16/17 03:17 Carbon Dioxide 20 mmol/L (22-30) L 04/16/17 03:17 Anion Gap 22 mmol/L 04/16/17 03:17 BUN 27 mg/dL (9-20) H 04/16/17 03:17 Creatinine 0.3 mg/dL (0.8-1.5) L 04/16/17 03:17 Estimated GFR > 60 ml/min 04/16/17 03:17 BUN/Creatinine Ratio 90 % 04/16/17 03:17 Glucose 156 mg/dL (75-100) H 04/16/17 03:17 POC Glucose 171 (70-105) H 04/16/17 05:19 Calcium 8.3 mg/dL (8.4-10.2) L 04/16/17 03:17 Phosphorus 3.50 mg/dL (2.5-4.5) 04/13/17 04:45 Magnesium 2.20 mg/dL (1.7-2.3) 04/15/17 05:15 Total Bilirubin 1.00 mg/dL (0.1-1.2) 04/15/17 05:15 Direct Bilirubin 0.4 mg/dL (0-0.2) H 04/15/17 05:15 Indirect Bilirubin 0.6 mg/dL 04/15/17 05:15 AST 149 units/L (5-40) H 04/15/17 05:15 ALT 182 units/L (7-56) H 04/15/17 05:15 Alkaline Phosphatase 143 units/L (35-129) H 04/15/17 05:15 Total Creatine Kinase 1404 units/L (55-170) H 04/12/17 21:36 CK-MB (CK-2) 8.0 ng/mL (0.0-4.0) H 04/12/17 21:36 CK-MB (CK-2) Rel Index 0.5 (0-4) 04/12/17 21:36 Troponin T 0.767 ng/mL (0.00-0.029) H* 04/12/17 21:36 C-Reactive Protein 21.80 mg/dL (0.00-1.30) H 03/30/17 16:04 Total Protein 6.4 g/dL (6.3-8.2) 04/15/17 05:15 Albumin 2.5 g/dL (3.9-5) L 04/15/17 05:15 Albumin/Globulin Ratio 0.6 % 04/15/17 05:15 Triglycerides 151 mg/dL (2-149) H 04/01/17 04:29 Cholesterol 164 mg/dL (50-199) 03/29/17 19:52 LDL Cholesterol Direct 81 mg/dL (50-130) 03/29/17 19:52 HDL Cholesterol 44 mg/dL (40-59) 03/29/17 19:52 Cholesterol/HDL Ratio 3.72 % 03/29/17 19:52 Urine Color [place] (Yellow) 04/14/17 11:06 Urine Turbidity Slightly-cloudy (Clear) 04/14/17 11:06 Urine pH 5.0 (5.0-7.0) 04/14/17 11:06 Ur Specific [place] 1.033 (1.003-1.030) H 04/14/17 11:06 Urine Protein 100 mg/dl mg/dL (Negative) 04/14/17 11:06 Urine Glucose (UA) Neg mg/dL (Negative) 04/14/17 11:06 Urine Ketones Neg mg/dL (Negative) 04/14/17 11:06 Urine Blood Lg (Negative) 04/14/17 11:06 Urine Nitrite Pos (Negative) 04/14/17 11:06 Urine Bilirubin Neg (Negative) 04/14/17 11:06 Urine Urobilinogen 4.0 mg/dL (<2.0) 04/14/17 11:06 Ur Leukocyte Esterase Mod (Negative) 04/14/17 11:06 Urine WBC (Auto) > 182.0 /HPF (0.0-6.0) H 04/14/17 11:06 Urine RBC (Auto) > 182.0 /HPF (0.0-6.0) 04/14/17 11:06 Amorphous Crystals 1+ 03/30/17 09:45 Urine Mucus Few /HPF 04/14/17 11:06 Urine Opiates Screen Presumptive negative 03/30/17 09:45 Urine Methadone Screen Presumptive negative 03/30/17 09:45 Ur Barbiturates Screen Presumptive negative 03/30/17 09:45 Ur Phencyclidine Scrn Presumptive negative 03/30/17 09:45 Ur Amphetamines Screen Presumptive positive 03/30/17 09:45 U Benzodiazepines Scrn Presumptive positive 03/30/17 09:45 Urine Cocaine Screen Presumptive negative 03/30/17 09:45 U Marijuana (THC) Screen Presumptive negative 03/30/17 09:45 Drugs of Abuse Note Disclamer 03/30/17 09:45 Blood Type O POSITIVE 03/29/17 11:35 Antibody Screen Negative 03/29/17 11:35
[2017-04-16] MEDS: COLACE FEEDTUBE SCH ×2 (09:42→23:41)
[2017-04-16] MEDS: PROTONIX FEEDTUBE SCH (09:42)
[2017-04-16] MEDS: PLAVIX PO SCH (09:42)
[2017-04-16] MEDS: ASPIRIN PO SCH (09:42)
[2017-04-16] MEDS: HEPARIN SUB-Q SCH ×3 (09:43→21:58)
--- NOTE | 2017-04-16 10:19 | XRay Report ---
AP CHEST: HISTORY: Fever, followup pneumonia The tracheostomy and right arm PICC remain in adequate position. Discoid atelectasis in the lower lung zones has essentially resolved since 04/14/17. There is subtle air space opacity remaining at the left lung base which could represent segmental atelectasis or infiltrate. No pleural effusion or pneumothorax.
[2017-04-16] MEDS: D5/0.45NS 1,000 ML IV SCH (10:22)
[2017-04-16] MEDS: ZESTRIL PO SCH (10:27)
--- NOTE | 2017-04-16 11:09 | Progress Note ---
Assessment and Plan Out of hospital VF arrest s/p trach and PEG tube Acute anterior STEMI s/p PCI of the LAD using BM stents deployed. reduced LVEF 30-35% by echocardiogram. DAPT resumed Respiratory failure on the vent Anoxic brain injury Pneumonia: MRSA UTI and fever Elevated Transaminitis Amiodarone and statins discontinued Plan: Conservative cardiac management Subjective Date of service: 04/16/17 Principal diagnosis: septic shock Interval history: No cardiac events overnight Objective Vital Signs Temp Pulse Pulse Resp BP Pulse Ox Pulse Ox 04/16/17 10:27 105 H 103/61 04/16/17 10:14 99 04/16/17 10:03 108 H 106/70 99 04/16/17 08:00 100.1 F H 102 H 106 H 30 H 103/62 95 04/16/17 07:45 30 H 04/16/17 07:00 108 H 34 H 102/55 92 04/16/17 06:00 105 H 30 H 108/59 93 04/16/17 05:00 106 H 31 H 108/65 96 04/16/17 04:52 97 04/16/17 04:44 105 H 112/59 98 04/16/17 04:00 103 H 105 H 28 H 102/60 95 04/16/17 03:28 99.4 F 04/16/17 03:00 105 H 27 H 105/60 97 04/16/17 02:00 101 H 27 H 100/64 98 04/16/17 01:45 100 H 99/53 04/16/17 01:00 101 H 28 H 101/64 96 04/16/17 00:00 98 H 100 H 25 H 107/68 96 04/15/17 23:50 99 H 99/53 04/15/17 23:20 99.8 F H 04/15/17 23:14 102 H 25 H 98/50 98 04/15/17 23:00 102 H 25 H 99/53 04/15/17 22:00 103 H 26 H 98/50 96 97 04/15/17 21:00 102 H 23 100/62 93 04/15/17 20:00 99 H 97 H 24 107/68 96 04/15/17 19:52 100 H 104/66 96 04/15/17 19:49 102.1 F H 04/15/17 19:00 98 H 24 107/66 94 04/15/17 18:47 97 H 103/67 04/15/17 18:00 98 H 24 108/72 95 04/15/17 17:52 97 04/15/17 17:43 95 H 103/69 100 04/15/17 17:00 96 H 24 102/70 100 04/15/17 16:00 99.1 F 92 H 97 H 24 107/67 97 04/15/17 15:00 87 23 94/67 97 04/15/17 14:37 86 83/43 04/15/17 14:00 83 24 100/60 04/15/17 13:00 89 26 H 100/59 04/15/17 12:00 99.2 F 83 86 25 H 83/43 93 04/15/17 11:55 87 163/76 99 04/15/17 11:28 26 H - Physical Examination General: Other (unresponsive on the vent) HEENT: Positive: Other (unresponsive, vent) Neck: Positive: neck supple, trachea midline. Negative: JVD/HJR Cardiac: Positive: Reg Rate and Rhythm Lungs: Positive: Ventilated Respirations Neuro: Positive: Other (unresponsive post VF arrest) Abdomen: Positive: Soft, Active Bowel Sounds Skin: Positive: Clear Extremities: Absent: edema - Labs and Meds CBC 04/16/17 Range/Units 03:17 WBC 9.5 (4.5-11.0) K/mm3 RBC 3.39 L (3.65-5.03) M/mm3 Hgb 10.5 L (11.8-15.2) gm/dl Hct 32.4 L (35.5-45.6) % Plt Count 106 L (140-440) K/mm3 Lymph # 0.6 L (1.2-5.4) K/mm3 [place] # 0.4 (0.0-0.8) K/mm3 Eos # 0.2 (0.0-0.4) K/mm3 Baso # 0.0 (0.0-0.1) K/mm3 Comprehensive Metabolic Panel 04/16/17 Range/Units 03:17 Sodium 149 H (137-145) mmol/L Potassium 3.6 (3.6-5.0) mmol/L Chloride 111.1 H (98-107) mmol/L Carbon Dioxide 20 L (22-30) mmol/L BUN 27 H (9-20) mg/dL Creatinine 0.3 L (0.8-1.5) mg/dL Glucose 156 H (75-100) mg/dL Calcium 8.3 L (8.4-10.2) mg/dL
[2017-04-16] MEDS ORDERED: ROCEPHIN/NS 1 GM/50 ML 1 GM/50 ML BAG IV SCH (13:00)
[2017-04-16] MEDS: cefTRIAXone 1 GM in NACL 0.9% 20 ML IV SCH (14:55)
[2017-04-17] MEDS: cefTRIAXone 1 GM in NACL 0.9% 20 ML IV SCH (05:03)
[2017-04-17] MEDS: NITRO DUR TD SCH (06:35)
[2017-04-17] MEDS: LOPRESSOR PO SCH ×4 (06:36→23:46)
[2017-04-17] MEDS: TYLENOL PO PRN (09:58)
[2017-04-17] MEDS: COLACE FEEDTUBE SCH ×2 (09:58→23:34)
[2017-04-17] MEDS: PROTONIX FEEDTUBE SCH (10:01)
[2017-04-17] MEDS: ASPIRIN PO SCH (10:01)
[2017-04-17] MEDS: PLAVIX PO SCH (10:01)
[2017-04-17] MEDS: HEPARIN SUB-Q SCH ×2 (10:25→23:34)
[2017-04-17] MEDS: ZESTRIL PO SCH (10:30)
--- NOTE | 2017-04-17 12:02 | Progress Note ---
Assessment and Plan Assessment and plan: 46 YO Male with No PMH was admitted through emergency room with history of V. fib cardiac arrest status post CPR per ACLS protocol, acute respiratory failure vent dependent , had tracheostomy and PEG placement, awaiting LTAC evaluation and placement --Acute hypoxic respiratory failure;s/p tracheostomy on vent , continue supportive care --Status post cardiac arrest: Status post CPR, unresponsive, supportive care --Anoxic brain injury; patient has been off sedation and still obtunded and nonresponsive. Poor prognosis, s/p trach and PEG --Acute anterior STEMI ; status post PCI , continue current cardiac medications Cardiology following , --Hypertension ; closely monitor , continue current antihypertensives and when necessary medications --MRSA pneumonia /aspiration pneumonia , contact isolation, ID following, completed zyvox on 04/10 --Cardiogenic shock; resolved, Currently off pressors, closely monitor --Hypokalemia /hypernatremia, Corrected --DVT prophylaxis; heparin --Full CODE STATUS --DC planning. Case management Possible SNF versus rehabilitation unable to go to LTACH as has no insurance medicare disability application in process of being filled out by family Critical care time 31 minutes The high probability of a clinically significant, sudden or life threatening deterioration of the [Pulmonary, cardiac, renal] system(s) required my full and direct attention, intervention and personal management. The aggregate critical care time was [31] minutes. This time is in addition to time spent performing reported procedures but includes the following: [x] Data Review and interpretation [x] Patient assessment and monitoring of vital signs [x] Documentation [x] Medication orders and management History Interval history: Patient seen and evaluated this morning in ICU Medical records reviewed, no new events reported by the nursing staff Patient remained stable, status post trach and PEG on vent Vital signs reviewed Hospitalist Physical - Constitutional Vitals: Temp Pulse Resp BP Pulse Ox 99.2 F 92 H 29 H 92/50 94 04/17/17 12:00 04/17/17 11:00 04/17/17 11:00 04/17/17 11:00 04/17/17 11:00 General appearance: Present: no acute distress, well-nourished, other ( tracheostomy on ventilatory support) - EENT Eyes: Present: PERRL - Neck Neck: Present: supple, normal ROM - Respiratory Respiratory effort: normal Respiratory: bilateral: diminished, rhonchi, negative: rales, wheezing - Cardiovascular Rhythm: regular Heart Sounds: Present: S1 & S2 - Extremities Extremities: no ischemia, No edema - Abdominal General gastrointestinal: soft, non-tender, non-distended, normal bowel sounds - Integumentary Integumentary: Present: clear, warm - Psychiatric Psychiatric: other (noncommunicative) - Neurologic Neurologic: other (noncommunicative) Results - Labs CBC & Chem 7: 04/16/17 03:17 04/16/17 03:17 Labs: Laboratory Last Values WBC 9.5 K/mm3 (4.5-11.0) 04/16/17 03:17 RBC 3.39 M/mm3 (3.65-5.03) L 04/16/17 03:17 Hgb 10.5 gm/dl (11.8-15.2) L 04/16/17 03:17 Hct 32.4 % (35.5-45.6) L 04/16/17 03:17 MCV 96 fl (84-94) H 04/16/17 03:17 MCH 31 pg (28-32) 04/16/17 03:17 MCHC 33 % (32-34) 04/16/17 03:17 RDW 14.0 % (13.2-15.2) 04/16/17 03:17 Plt Count 106 K/mm3 (140-440) L 04/16/17 03:17 Lymph % (Auto) 6.7 % (13.4-35.0) L 04/16/17 03:17 [place] % (Auto) 4.0 % (0.0-7.3) 04/16/17 03:17 Eos % (Auto) 2.1 % (0.0-4.3) 04/16/17 03:17 Baso % (Auto) 0.4 % (0.0-1.8) 04/16/17 03:17 Lymph # 0.6 K/mm3 (1.2-5.4) L 04/16/17 03:17 [place] # 0.4 K/mm3 (0.0-0.8) 04/16/17 03:17 Eos # 0.2 K/mm3 (0.0-0.4) 04/16/17 03:17 Baso # 0.0 K/mm3 (0.0-0.1) 04/16/17 03:17 Add Manual Diff Complete 03/30/17 03:50 Total Counted 100 03/30/17 03:50 Seg Neutrophils % 86.8 % (40.0-70.0) H 04/16/17 03:17 Seg Neuts % (Manual) 65.0 % (40.0-70.0) 03/30/17 03:50 Band Neutrophils % 17.0 % 03/30/17 03:50 Lymphocytes % (Manual) 7.0 % (13.4-35.0) L 03/30/17 03:50 Reactive Lymphs % (Man) 0 % 03/30/17 03:50 Monocytes % (Manual) 7.0 % (0.0-7.3) 03/30/17 03:50 Eosinophils % (Manual) 0 % (0.0-4.3) 03/30/17 03:50 Basophils % (Manual) 0 % (0.0-1.8) 03/30/17 03:50 Metamyelocytes % 4.0 % 03/30/17 03:50 Myelocytes % 0 % 03/30/17 03:50 Promyelocytes % 0 % 03/30/17 03:50 Blast Cells % 0 % 03/30/17 03:50 Nucleated RBC % Not Reportable 03/30/17 03:50 Seg Neutrophils # 8.2 K/mm3 (1.8-7.7) H 04/16/17 03:17 Seg Neutrophils # Man 12.7 K/mm3 (1.8-7.7) H 03/30/17 03:50 Band Neutrophils # 3.3 K/mm3 03/30/17 03:50 Lymphocytes # (Manual) 1.4 K/mm3 (1.2-5.4) 03/30/17 03:50 Abs React Lymphs (Man) 0.0 K/mm3 03/30/17 03:50 Monocytes # (Manual) 1.4 K/mm3 (0.0-0.8) H 03/30/17 03:50 Eosinophils # (Manual) 0.0 K/mm3 (0.0-0.4) 03/30/17 03:50 Basophils # (Manual) 0.0 K/mm3 (0.0-0.1) 03/30/17 03:50 Metamyelocytes # 0.8 K/mm3 03/30/17 03:50 Myelocytes # 0.0 K/mm3 03/30/17 03:50 Promyelocytes # 0.0 K/mm3 03/30/17 03:50 Blast Cells # 0.0 K/mm3 03/30/17 03:50 WBC Morphology Not Reportable 03/30/17 03:50 Hypersegmented Neuts Not Reportable 03/30/17 03:50 Hyposegmented Neuts Not Reportable 03/30/17 03:50 Hypogranular Neuts Not Reportable 03/30/17 03:50 Smudge Cells Not Reportable 03/30/17 03:50 Toxic Granulation Not Reportable 03/30/17 03:50 Toxic Vacuolation Not Reportable 03/30/17 03:50 Dohle Bodies Not Reportable 03/30/17 03:50 Pelger-Huet Anomaly Not Reportable 03/30/17 03:50 Sherry Rods Not Reportable 03/30/17 03:50 Platelet Estimate Appears normal 03/30/17 03:50 Clumped Platelets Not Reportable 03/30/17 03:50 Plt Clumps, EDTA Not Reportable 03/30/17 03:50 Large Platelets Not Reportable 03/30/17 03:50 Giant Platelets Not Reportable 03/30/17 03:50 Platelet Satelliting Not Reportable 03/30/17 03:50 Plt Morphology Comment Not Reportable 03/30/17 03:50 RBC Morphology Not Reportable 03/30/17 03:50 Dimorphic RBCs Not Reportable 03/30/17 03:50 Polychromasia Not Reportable 03/30/17 03:50 Hypochromasia Not Reportable 03/30/17 03:50 Poikilocytosis Not Reportable 03/30/17 03:50 Anisocytosis Few 03/30/17 03:50 Microcytosis Not Reportable 03/30/17 03:50 Macrocytosis Not Reportable 03/30/17 03:50 Spherocytes Not Reportable 03/30/17 03:50 Pappenheimer Bodies Not Reportable 03/30/17 03:50 Sickle Cells Not Reportable 03/30/17 03:50 Target Cells Not Reportable 03/30/17 03:50 Tear Drop Cells Not Reportable 03/30/17 03:50 Ovalocytes Not Reportable 03/30/17 03:50 Helmet Cells Not Reportable 03/30/17 03:50 [place] Bodies Not Reportable 03/30/17 03:50 Stella Rings Not Reportable 03/30/17 03:50 Nusrat Cells Not Reportable 03/30/17 03:50 Bite Cells Not Reportable 03/30/17 03:50 Crenated Cell Not Reportable 03/30/17 03:50 Elliptocytes Not Reportable 03/30/17 03:50 Acanthocytes (Spur) Not Reportable 03/30/17 03:50 Rouleaux Not Reportable 03/30/17 03:50 Hemoglobin C Crystals Not Reportable 03/30/17 03:50 Schistocytes Not Reportable 03/30/17 03:50 Malaria parasites Not Reportable 03/30/17 03:50 Jermaine Bodies Not Reportable 03/30/17 03:50 Hem Pathologist Commnt No 03/30/17 03:50 PT 14.9 Sec. (12.2-14.9) 04/10/17 04:16 INR 1.11 (0.87-1.13) 04/10/17 04:16 APTT 27.8 Sec. (24.2-36.6) 04/10/17 04:16 Activated Clotting Time 92 (74-137) 03/29/17 17:47 POC ABG pH 7.517 (7.35-7.45) H 04/07/17 11:45 POC ABG pCO2 32.1 (35-45) L 04/07/17 11:45 POC ABG pO2 93 (80-105) 04/07/17 11:45 POC ABG HCO3 26.0 04/07/17 11:45 POC ABG Total CO2 27 04/07/17 11:45 POC ABG O2 Sat 98 04/07/17 11:45 POC ABG Base Excess 3 04/07/17 11:45 FiO2 35 % 04/07/17 11:45 Sodium 149 mmol/L (137-145) H 04/16/17 03:17 Potassium 3.6 mmol/L (3.6-5.0) 04/16/17 03:17 Chloride 111.1 mmol/L (98-107) H 04/16/17 03:17 Carbon Dioxide 20 mmol/L (22-30) L 04/16/17 03:17 Anion Gap 22 mmol/L 04/16/17 03:17 BUN 27 mg/dL (9-20) H 04/16/17 03:17 Creatinine 0.3 mg/dL (0.8-1.5) L 04/16/17 03:17 Estimated GFR > 60 ml/min 04/16/17 03:17 BUN/Creatinine Ratio 90 % 04/16/17 03:17 Glucose 156 mg/dL (75-100) H 04/16/17 03:17 POC Glucose 145 (70-105) H 04/17/17 05:09 Calcium 8.3 mg/dL (8.4-10.2) L 04/16/17 03:17 Phosphorus 3.50 mg/dL (2.5-4.5) 04/13/17 04:45 Magnesium 2.20 mg/dL (1.7-2.3) 04/15/17 05:15 Total Bilirubin 1.00 mg/dL (0.1-1.2) 04/15/17 05:15 Direct Bilirubin 0.4 mg/dL (0-0.2) H 04/15/17 05:15 Indirect Bilirubin 0.6 mg/dL 04/15/17 05:15 AST 149 units/L (5-40) H 04/15/17 05:15 ALT 182 units/L (7-56) H 04/15/17 05:15 Alkaline Phosphatase 143 units/L (35-129) H 04/15/17 05:15 Total Creatine Kinase 1404 units/L (55-170) H 04/12/17 21:36 CK-MB (CK-2) 8.0 ng/mL (0.0-4.0) H 04/12/17 21:36 CK-MB (CK-2) Rel Index 0.5 (0-4) 04/12/17 21:36 Troponin T 0.767 ng/mL (0.00-0.029) H* 04/12/17 21:36 C-Reactive Protein 21.80 mg/dL (0.00-1.30) H 03/30/17 16:04 Total Protein 6.4 g/dL (6.3-8.2) 04/15/17 05:15 Albumin 2.5 g/dL (3.9-5) L 04/15/17 05:15 Albumin/Globulin Ratio 0.6 % 04/15/17 05:15 Triglycerides 151 mg/dL (2-149) H 04/01/17 04:29 Cholesterol 164 mg/dL (50-199) 03/29/17 19:52 LDL Cholesterol Direct 81 mg/dL (50-130) 03/29/17 19:52 HDL Cholesterol 44 mg/dL (40-59) 03/29/17 19:52 Cholesterol/HDL Ratio 3.72 % 03/29/17 19:52 Urine Color [place] (Yellow) 04/14/17 11:06 Urine Turbidity Slightly-cloudy (Clear) 04/14/17 11:06 Urine pH 5.0 (5.0-7.0) 04/14/17 11:06 Ur Specific [place] 1.033 (1.003-1.030) H 04/14/17 11:06 Urine Protein 100 mg/dl mg/dL (Negative) 04/14/17 11:06 Urine Glucose (UA) Neg mg/dL (Negative) 04/14/17 11:06 Urine Ketones Neg mg/dL (Negative) 04/14/17 11:06 Urine Blood Lg (Negative) 04/14/17 11:06 Urine Nitrite Pos (Negative) 04/14/17 11:06 Urine Bilirubin Neg (Negative) 04/14/17 11:06 Urine Urobilinogen 4.0 mg/dL (<2.0) 04/14/17 11:06 Ur Leukocyte Esterase Mod (Negative) 04/14/17 11:06 Urine WBC (Auto) > 182.0 /HPF (0.0-6.0) H 04/14/17 11:06 Urine RBC (Auto) > 182.0 /HPF (0.0-6.0) 04/14/17 11:06 Amorphous Crystals 1+ 03/30/17 09:45 Urine Mucus Few /HPF 04/14/17 11:06 Urine Opiates Screen Presumptive negative 03/30/17 09:45 Urine Methadone Screen Presumptive negative 03/30/17 09:45 Ur Barbiturates Screen Presumptive negative 03/30/17 09:45 Ur Phencyclidine Scrn Presumptive negative 03/30/17 09:45 Ur Amphetamines Screen Presumptive positive 03/30/17 09:45 U Benzodiazepines Scrn Presumptive positive 03/30/17 09:45 Urine Cocaine Screen Presumptive negative 03/30/17 09:45 U Marijuana (THC) Screen Presumptive negative 03/30/17 09:45 Drugs of Abuse Note Disclamer 03/30/17 09:45 Blood Type O POSITIVE 03/29/17 11:35 Antibody Screen Negative 03/29/17 11:35
--- NOTE | 2017-04-17 12:32 | Progress Note ---
Assessment and Plan Out of hospital VF arrest Acute anterior STEMI s/p PCI of the LAD using BM stents deployed. reduced LVEF 30-35% by echocardiogram. DAPT resumed Respiratory failure on the vent via trach Anoxic brain injury Pneumonia: MRSA UTI and fever Elevated Transaminitis amiodarone and statins discontinued Conservative cardiac management Subjective Date of service: 04/17/17 Principal diagnosis: septic shock Interval history: Patient remains intubated, unresponsive on the vent. Objective Vital Signs Temp Pulse Pulse Resp BP Pulse Ox Pulse Ox 04/17/17 12:04 82 91/52 98 04/17/17 12:00 99.2 F 04/17/17 11:00 92 H 29 H 92/50 94 04/17/17 10:58 30 H 04/17/17 10:30 98 H 90/49 04/17/17 10:00 99 H 29 H 103/54 94 04/17/17 09:58 29 H 04/17/17 09:00 98 H 29 H 101/55 100 04/17/17 08:15 102 H 97/61 98 04/17/17 08:00 99.6 F 91 H 98 H 32 H 97/61 99 04/17/17 07:00 92 H 28 H 96/57 04/17/17 06:36 111 H 101/62 04/17/17 06:35 111 H 101/62 04/17/17 06:00 124 H 35 H 111/73 90 04/17/17 05:00 108 H 29 H 102/66 97 04/17/17 04:24 91 H 102/63 100 04/17/17 04:00 94 H 26 H 102/63 04/17/17 03:20 98.6 F 04/17/17 03:00 92 H 25 H 93/60 100 04/17/17 02:16 86 27 H 98/58 99 04/17/17 02:00 85 28 H 98/58 100 04/17/17 01:46 86 28 H 89/48 99 04/17/17 01:30 85 28 H 89/48 98 04/17/17 01:16 86 31 H 89/53 100 04/17/17 01:00 88 33 H 88/46 98 04/17/17 00:02 102 H 43 H 97/49 99 04/17/17 00:00 102 H 33 H 97/49 97 04/16/17 23:41 111 H 118/60 04/16/17 23:40 42 H 04/16/17 23:39 112 H 102/59 96 04/16/17 23:32 103 F H 04/16/17 23:00 108 H 38 H 108/61 92 04/16/17 22:00 116 H 38 H 97/56 95 04/16/17 21:00 109 H 39 H 103/59 93 04/16/17 20:00 109 H 35 H 101/58 94 04/16/17 19:57 98 04/16/17 19:52 102.3 F H 04/16/17 19:50 110 H 104/64 100 04/16/17 19:00 110 H 37 H 103/63 96 04/16/17 18:07 98 H 98/59 04/16/17 18:00 107 H 31 H 98/59 99 04/16/17 17:00 112 H 38 H 105/63 98 04/16/17 16:00 98.9 F 115 H 116 H 36 H 95/62 99 04/16/17 15:00 106 H 28 H 111/66 96 04/16/17 14:00 105 H 29 H 111/72 98 04/16/17 13:50 103 H 109/62 98 04/16/17 13:00 99 H 28 H 109/70 98 - Physical Examination General: Other (unresponsive on the vent) Cardiac: Positive: Reg Rate and Rhythm
--- NOTE | 2017-04-17 17:05 | Progress Note ---
Assessment and Plan Imp: 1. s/p CP arrest 2. Anoxic enceph. 3. Acute respiratory failure, hypoxia 4. s/p Trach/PEG 5. Hypernatremia 6. STEMI/ICMP 7. UTI Rec: 1. Increase 1/2 NS; Lasix prn but correct sodium first; labs in AM 2. Rocephin vs. E.coli & monitor temp curve 3. Daily PSV 4. Plavix 5. TFs, DVT/GI PPx 6. Poor prognosis; no family present; complex patient Subjective Date of service: 04/17/17 Principal diagnosis: septic shock Interval history: No events. Unresponsive. Did not tolerate PSV. + Copious secretions. Active Medications Acetaminophen (Tylenol) 1,000 mg PO Q6H PRN PRN Reason: Fever >101 Last Admin: 04/17/17 09:58 Dose: 1,000 mg Albuterol (Proventil) 2.5 mg IH Q3HRT PRN PRN Reason: Shortness Of Breath Last Admin: 04/13/17 21:25 Dose: 2.5 mg Lipase/Protease/Amylase (Pancreaze Dr 10,500 Unit) 1 each FEEDTUBE PRN PRN PRN Reason: For Clogged Feeding Tube Aspirin (Aspirin) 325 mg PO QDAY [facility] Last Admin: 04/17/17 10:01 Dose: 325 mg Clopidogrel Bisulfate (Plavix) 75 mg PO QDAY [facility] Last Admin: 04/17/17 10:01 Dose: 75 mg Dextrose (D50w (25gm) Syringe) 50 ml IV PRN PRN PRN Reason: Hypoglycemia Docusate Sodium (Colace) 100 mg FEEDTUBE BID [facility] Last Admin: 04/17/17 09:58 Dose: 100 mg Heparin Sodium (Porcine) (Heparin) 5,000 unit SUB-Q Q12HR [facility] Last Admin: 04/17/17 10:25 Dose: 5,000 unit Hydrophilic Ointment (Vaseline Lip Therapy) 1 applic TP Q2HR PRN PRN Reason: Dry Lips Last Admin: 03/31/17 22:50 Dose: 1 applic Dextrose/Sodium Chloride (D5/0.45ns) 1,000 mls @ 75 mls/hr IV DIRECT [facility] Last Admin: 04/16/17 10:22 Dose: 42 mls/hr Ceftriaxone Sodium 1 gm/ (Sodium Chloride) 20 mls @ 20 mls/10 min IV Q24HR [facility] Lisinopril (Zestril) 2.5 mg PO QDAY [facility] Last Admin: 04/17/17 10:30 Dose: Not Given Metoprolol Tartrate (Lopressor) 2.5 mg IV Q4HR PRN PRN Reason: HR>130 Last Admin: 04/09/17 19:41 Dose: 2.5 mg Metoprolol Tartrate (Lopressor) 50 mg PO Q6HR [facility] Last Admin: 04/17/17 12:10 Dose: Not Given Multi-Ingred Cream/Lotion/Oil/Oint (Artificial Tears Ophth Oint) 1 applic OU Q4HR PRN PRN Reason: Dry Eye(s) Last Admin: 03/31/17 22:51 Dose: 1 applic Nitroglycerin (Nitro Dur) 0.2 mg TD QDAY@0600 [facility] Last Admin: 04/17/17 06:35 Dose: Not Given Pantoprazole (Protonix) 40 mg FEEDTUBE DAILY [facility] Last Admin: 04/17/17 10:01 Dose: 40 mg Simple Syrup (Simple Syrup) 15 ml FEEDTUBE PRN PRN PRN Reason: Hypoglycemia Simple Syrup (Simple Syrup) 30 ml FEEDTUBE PRN PRN PRN Reason: Hypoglycemia Sodium Bicarbonate (Sodium Bicarbonate) 325 mg FEEDTUBE PRN PRN PRN Reason: For Clogged Feeding Tube Objective Vital Signs - 12hr 04/17/17 04/17/17 04/17/17 06:00 06:35 06:36 Temperature Pulse Rate 124 H 111 H 111 H Pulse Rate [ From Monitor] Respiratory 35 H Rate Blood Pressure 111/73 101/62 101/62 O2 Sat by Pulse 90 Oximetry 04/17/17 04/17/17 04/17/17 07:00 08:00 08:15 Temperature 99.6 F Pulse Rate 92 H 91 H 102 H Pulse Rate [ 98 H From Monitor] Respiratory 28 H 32 H Rate Blood Pressure 96/57 97/61 97/61 O2 Sat by Pulse 99 98 Oximetry 04/17/17 04/17/17 04/17/17 09:00 09:58 10:00 Temperature Pulse Rate 98 H 99 H Pulse Rate [ From Monitor] Respiratory 29 H 29 H 29 H Rate Blood Pressure 101/55 103/54 O2 Sat by Pulse 100 94 Oximetry 04/17/17 04/17/17 04/17/17 10:30 10:58 11:00 Temperature Pulse Rate 98 H 92 H Pulse Rate [ From Monitor] Respiratory 30 H 29 H Rate Blood Pressure 90/49 92/50 O2 Sat by Pulse 94 Oximetry 04/17/17 04/17/17 04/17/17 12:00 12:04 12:10 Temperature 99.2 F Pulse Rate 81 82 84 Pulse Rate [ From Monitor] Respiratory 26 H Rate Blood Pressure 91/52 91/52 91/52 O2 Sat by Pulse 98 98 Oximetry 04/17/17 04/17/17 04/17/17 13:00 14:00 15:00 Temperature Pulse Rate 82 87 84 Pulse Rate [ From Monitor] Respiratory 24 27 H 27 H Rate Blood Pressure 97/63 104/66 104/61 O2 Sat by Pulse 97 93 96 Oximetry 04/17/17 04/17/17 04/17/17 15:27 15:29 16:00 Temperature 99.0 F Pulse Rate 86 86 Pulse Rate [ 103 H From Monitor] Respiratory 25 H Rate Blood Pressure 104/61 100/64 O2 Sat by Pulse 100 97 Oximetry Constitutional: comatose Eyes: non-icteric ENT: oropharynx moist Neck: supple Effort: normal Ascultation: Bilateral: other (coarse BS bilaterally) Cardiovascular: regular rate and rhythm (no mrg) Gastrointestinal: normoactive bowel sounds, soft, non-tender, non-distended, other (mild distention) Integumentary: normal, other (multiple tattoos) Extremities: no cyanosis, no edema, pink and warm Neurologic: unable to assess Psychiatric: other (unable to assess) CBC and BMP: 04/16/17 03:17 04/16/17 03:17 ABG, PT/INR, D-dimer: ABG POC ABG pH 7.517 (7.35-7.45) H 04/07/17 11:45 POC ABG pCO2 32.1 (35-45) L 04/07/17 11:45 POC ABG pO2 93 (80-105) 04/07/17 11:45 POC ABG HCO3 26.0 04/07/17 11:45 POC ABG Total CO2 27 04/07/17 11:45 POC ABG O2 Sat 98 04/07/17 11:45 PT/INR, D-dimer PT 14.9 Sec. (12.2-14.9) 04/10/17 04:16 INR 1.11 (0.87-1.13) 04/10/17 04:16 Abnormal lab findings: Abnormal Labs 03/29/17 03/29/17 03/29/17 11:35 11:35 11:40 WBC RBC Hgb Hct MCV 98 H MCH 33 H Plt Count Lymph % (Auto) Lymph # Seg Neutrophils % Lymphocytes % (Manual) Monocytes % (Manual) 9.0 H Nucleated RBC % 1.0 H Seg Neutrophils # Seg Neutrophils # Man Monocytes # (Manual) 0.9 H PT 15.8 H INR 1.20 H Activated Clotting Time POC ABG pH POC ABG pCO2 POC ABG pO2 Sodium Potassium 2.7 L* Chloride 95.3 L Carbon Dioxide 17 L BUN Creatinine Glucose 435 H POC Glucose Calcium Magnesium Direct Bilirubin AST ALT Alkaline Phosphatase Total Creatine Kinase CK-MB (CK-2) CK-MB (CK-2) Rel Index Troponin T C-Reactive Protein Total Protein 6.1 L Albumin 3.5 L Triglycerides Ur Specific [place] Urine WBC (Auto) 03/29/17 03/29/17 03/29/17 12:34 13:10 13:25 WBC RBC Hgb Hct MCV MCH Plt Count Lymph % (Auto) Lymph # Seg Neutrophils % Lymphocytes % (Manual) Monocytes % (Manual) Nucleated RBC % Seg Neutrophils # Seg Neutrophils # Man Monocytes # (Manual) PT INR Activated Clotting Time 142 H 169 H 175 H POC ABG pH POC ABG pCO2 POC ABG pO2 Sodium Potassium Chloride Carbon Dioxide BUN Creatinine Glucose POC Glucose Calcium Magnesium Direct Bilirubin AST ALT Alkaline Phosphatase Total Creatine Kinase CK-MB (CK-2) CK-MB (CK-2) Rel Index Troponin T C-Reactive Protein Total Protein Albumin Triglycerides Ur Specific [place] Urine WBC (Auto) 03/29/17 03/29/17 03/29/17 14:50 15:18 19:52 WBC RBC Hgb Hct MCV MCH Plt Count Lymph % (Auto) Lymph # Seg Neutrophils % Lymphocytes % (Manual) Monocytes % (Manual) Nucleated RBC % Seg Neutrophils # Seg Neutrophils # Man Monocytes # (Manual) PT INR Activated Clotting Time 175 H POC ABG pH 7.293 L POC ABG pCO2 POC ABG pO2 602 H Sodium Potassium Chloride Carbon Dioxide BUN Creatinine Glucose POC Glucose Calcium Magnesium Direct Bilirubin AST ALT Alkaline Phosphatase Total Creatine Kinase 7263 H CK-MB (CK-2) > 300.0 H CK-MB (CK-2) Rel Index 4.1 H Troponin T 8.080 H* D C-Reactive Protein Total Protein Albumin Triglycerides 195 H Ur Specific [place] Urine WBC (Auto) 03/30/17 03/30/17 03/30/17 03:50 03:50 06:19 WBC 19.5 H RBC Hgb Hct MCV MCH Plt Count Lymph % (Auto) Lymph # Seg Neutrophils % Lymphocytes % (Manual) 7.0 L Monocytes % (Manual) Nucleated RBC % Seg Neutrophils # Seg Neutrophils # Man 12.7 H Monocytes # (Manual) 1.4 H PT INR Activated Clotting Time POC ABG pH POC ABG pCO2 28.2 L POC ABG pO2 108 H Sodium Potassium Chloride 108.9 H Carbon Dioxide 15 L BUN 25 H Creatinine Glucose 158 H POC Glucose Calcium 8.1 L Magnesium Direct Bilirubin AST ALT Alkaline Phosphatase Total Creatine Kinase 7963 H CK-MB (CK-2) > 300.0 H CK-MB (CK-2) Rel Index Troponin T 6.850 H* C-Reactive Protein Total Protein Albumin Triglycerides Ur Specific [place] Urine WBC (Auto) 03/30/17 03/30/17 03/31/17 09:45 16:04 02:19 WBC RBC Hgb Hct MCV MCH Plt Count Lymph % (Auto) Lymph # Seg Neutrophils % Lymphocytes % (Manual) Monocytes % (Manual) Nucleated RBC % Seg Neutrophils # Seg Neutrophils # Man Monocytes # (Manual) PT INR Activated Clotting Time POC ABG pH POC ABG pCO2 POC ABG pO2 Sodium Potassium Chloride Carbon Dioxide BUN Creatinine Glucose POC Glucose 137 H Calcium Magnesium Direct Bilirubin AST ALT Alkaline Phosphatase Total Creatine Kinase CK-MB (CK-2) CK-MB (CK-2) Rel Index Troponin T C-Reactive Protein 21.80 H Total Protein Albumin Triglycerides Ur Specific [place] 1.031 H Urine WBC (Auto) 03/31/17 03/31/17 03/31/17 03:57 06:54 09:22 WBC RBC Hgb Hct MCV MCH Plt Count Lymph % (Auto) Lymph # Seg Neutrophils % Lymphocytes % (Manual) Monocytes % (Manual) Nucleated RBC % Seg Neutrophils # Seg Neutrophils # Man Monocytes # (Manual) PT INR Activated Clotting Time POC ABG pH 7.475 H POC ABG pCO2 25.4 L POC ABG pO2 62 L Sodium Potassium Chloride Carbon Dioxide 19 L BUN 22 H Creatinine 0.6 L Glucose 148 H POC Glucose 143 H Calcium 8.3 L Magnesium Direct Bilirubin AST ALT Alkaline Phosphatase Total Creatine Kinase CK-MB (CK-2) CK-MB (CK-2) Rel Index Troponin T C-Reactive Protein Total Protein Albumin Triglycerides Ur Specific [place] Urine WBC (Auto) 03/31/17 03/31/17 03/31/17 11:40 17:47 23:38 WBC RBC Hgb Hct MCV MCH Plt Count Lymph % (Auto) Lymph # Seg Neutrophils % Lymphocytes % (Manual) Monocytes % (Manual) Nucleated RBC % Seg Neutrophils # Seg Neutrophils # Man Monocytes # (Manual) PT INR Activated Clotting Time POC ABG pH POC ABG pCO2 POC ABG pO2 Sodium Potassium Chloride Carbon Dioxide BUN Creatinine Glucose POC Glucose 127 H 137 H 148 H Calcium Magnesium Direct Bilirubin AST ALT Alkaline Phosphatase Total Creatine Kinase CK-MB (CK-2) CK-MB (CK-2) Rel Index Troponin T C-Reactive Protein Total Protein Albumin Triglycerides Ur Specific [place] Urine WBC (Auto) 04/01/17 04/01/17 04/01/17 04:29 05:01 11:54 WBC RBC Hgb Hct MCV MCH Plt Count Lymph % (Auto) Lymph # Seg Neutrophils % Lymphocytes % (Manual) Monocytes % (Manual) Nucleated RBC % Seg Neutrophils # Seg Neutrophils # Man Monocytes # (Manual) PT INR Activated Clotting Time POC ABG pH 7.513 H POC ABG pCO2 22.1 L POC ABG pO2 64 L Sodium Potassium Chloride Carbon Dioxide BUN Creatinine Glucose POC Glucose 121 H Calcium Magnesium Direct Bilirubin AST ALT Alkaline Phosphatase Total Creatine Kinase CK-MB (CK-2) CK-MB (CK-2) Rel Index Troponin T C-Reactive Protein Total Protein Albumin Triglycerides 151 H Ur Specific [place] Urine WBC (Auto) 04/01/17 04/02/17 04/02/17 18:17 00:11 04:52 WBC RBC Hgb Hct MCV MCH Plt Count Lymph % (Auto) Lymph # Seg Neutrophils % Lymphocytes % (Manual) Monocytes % (Manual) Nucleated RBC % Seg Neutrophils # Seg Neutrophils # Man Monocytes # (Manual) PT INR Activated Clotting Time POC ABG pH 7.524 H POC ABG pCO2 25.5 L POC ABG pO2 66 L Sodium Potassium Chloride Carbon Dioxide BUN Creatinine Glucose POC Glucose 117 H 122 H Calcium Magnesium Direct Bilirubin AST ALT Alkaline Phosphatase Total Creatine Kinase CK-MB (CK-2) CK-MB (CK-2) Rel Index Troponin T C-Reactive Protein Total Protein Albumin Triglycerides Ur Specific [place] Urine WBC (Auto) 04/02/17 04/02/17 04/02/17 05:18 10:41 12:19 WBC RBC Hgb Hct MCV MCH Plt Count Lymph % (Auto) Lymph # Seg Neutrophils % Lymphocytes % (Manual) Monocytes % (Manual) Nucleated RBC % Seg Neutrophils # Seg Neutrophils # Man Monocytes # (Manual) PT INR Activated Clotting Time POC ABG pH 7.534 H POC ABG pCO2 27.4 L POC ABG pO2 Sodium Potassium Chloride Carbon Dioxide BUN Creatinine Glucose POC Glucose 132 H 129 H Calcium Magnesium Direct Bilirubin AST ALT Alkaline Phosphatase Total Creatine Kinase CK-MB (CK-2) CK-MB (CK-2) Rel Index Troponin T C-Reactive Protein Total Protein Albumin Triglycerides Ur Specific [place] Urine WBC (Auto) 04/02/17 04/03/17 04/03/17 18:05 00:08 05:09 WBC RBC Hgb Hct MCV MCH Plt Count Lymph % (Auto) Lymph # Seg Neutrophils % Lymphocytes % (Manual) Monocytes % (Manual) Nucleated RBC % Seg Neutrophils # Seg Neutrophils # Man Monocytes # (Manual) PT INR Activated Clotting Time POC ABG pH 7.455 H POC ABG pCO2 33.2 L POC ABG pO2 120 H Sodium Potassium Chloride Carbon Dioxide BUN Creatinine Glucose POC Glucose 136 H 128 H Calcium Magnesium Direct Bilirubin AST ALT Alkaline Phosphatase Total Creatine Kinase CK-MB (CK-2) CK-MB (CK-2) Rel Index Troponin T C-Reactive Protein Total Protein Albumin Triglycerides Ur Specific [place] Urine WBC (Auto) 04/03/17 04/03/17 04/03/17 06:32 11:54 12:16 WBC 11.9 H RBC Hgb Hct MCV MCH Plt Count 125 L Lymph % (Auto) 4.8 L Lymph # 0.6 L Seg Neutrophils % 86.7 H Lymphocytes % (Manual) Monocytes % (Manual) Nucleated RBC % Seg Neutrophils # 10.3 H Seg Neutrophils # Man Monocytes # (Manual) PT INR Activated Clotting Time POC ABG pH POC ABG pCO2 POC ABG pO2 Sodium Potassium Chloride Carbon Dioxide BUN Creatinine Glucose POC Glucose 138 H 143 H Calcium Magnesium Direct Bilirubin AST ALT Alkaline Phosphatase Total Creatine Kinase CK-MB (CK-2) CK-MB (CK-2) Rel Index Troponin T C-Reactive Protein Total Protein Albumin Triglycerides Ur Specific [place] Urine WBC (Auto) 04/03/17 04/03/17 04/04/17 17:33 23:59 04:34 WBC RBC Hgb Hct MCV MCH Plt Count Lymph % (Auto) Lymph # Seg Neutrophils % Lymphocytes % (Manual) Monocytes % (Manual) Nucleated RBC % Seg Neutrophils # Seg Neutrophils # Man Monocytes # (Manual) PT INR Activated Clotting Time POC ABG pH 7.457 H POC ABG pCO2 29.8 L POC ABG pO2 76 L Sodium Potassium Chloride Carbon Dioxide BUN Creatinine Glucose POC Glucose 130 H 155 H Calcium Magnesium Direct Bilirubin AST ALT Alkaline Phosphatase Total Creatine Kinase CK-MB (CK-2) CK-MB (CK-2) Rel Index Troponin T C-Reactive Protein Total Protein Albumin Triglycerides Ur Specific [place] Urine WBC (Auto) 04/04/17 04/04/17 04/04/17 05:27 12:22 18:18 WBC RBC Hgb Hct MCV MCH Plt Count Lymph % (Auto) Lymph # Seg Neutrophils % Lymphocytes % (Manual) Monocytes % (Manual) Nucleated RBC % Seg Neutrophils # Seg Neutrophils # Man Monocytes # (Manual) PT INR Activated Clotting Time POC ABG pH POC ABG pCO2 POC ABG pO2 Sodium Potassium Chloride Carbon Dioxide BUN Creatinine Glucose POC Glucose 164 H 146 H 130 H Calcium Magnesium Direct Bilirubin AST ALT Alkaline Phosphatase Total Creatine Kinase CK-MB (CK-2) CK-MB (CK-2) Rel Index Troponin T C-Reactive Protein Total Protein Albumin Triglycerides Ur Specific [place] Urine WBC (Auto) 04/05/17 04/05/17 04/05/17 04:43 05:28 11:36 WBC RBC Hgb Hct MCV MCH Plt Count Lymph % (Auto) Lymph # Seg Neutrophils % Lymphocytes % (Manual) Monocytes % (Manual) Nucleated RBC % Seg Neutrophils # Seg Neutrophils # Man Monocytes # (Manual) PT INR Activated Clotting Time POC ABG pH 7.479 H POC ABG pCO2 33.5 L POC ABG pO2 76 L Sodium Potassium Chloride Carbon Dioxide BUN Creatinine Glucose POC Glucose 145 H 136 H Calcium Magnesium Direct Bilirubin AST ALT Alkaline Phosphatase Total Creatine Kinase CK-MB (CK-2) CK-MB (CK-2) Rel Index Troponin T C-Reactive Protein Total Protein Albumin Triglycerides Ur Specific [place] Urine WBC (Auto) 04/05/17 04/06/17 04/06/17 17:58 00:16 05:26 WBC RBC Hgb Hct MCV MCH Plt Count Lymph % (Auto) Lymph # Seg Neutrophils % Lymphocytes % (Manual) Monocytes % (Manual) Nucleated RBC % Seg Neutrophils # Seg Neutrophils # Man Monocytes # (Manual) PT INR Activated Clotting Time POC ABG pH POC ABG pCO2 POC ABG pO2 Sodium Potassium Chloride Carbon Dioxide BUN Creatinine Glucose POC Glucose 130 H 159 H 146 H Calcium Magnesium Direct Bilirubin AST ALT Alkaline Phosphatase Total Creatine Kinase CK-MB (CK-2) CK-MB (CK-2) Rel Index Troponin T C-Reactive Protein Total Protein Albumin Triglycerides Ur Specific [place] Urine WBC (Auto) 04/06/17 04/06/17 04/07/17 13:11 16:54 11:45 WBC RBC Hgb Hct MCV MCH Plt Count Lymph % (Auto) Lymph # Seg Neutrophils % Lymphocytes % (Manual) Monocytes % (Manual) Nucleated RBC % Seg Neutrophils # Seg Neutrophils # Man Monocytes # (Manual) PT INR Activated Clotting Time POC ABG pH 7.517 H POC ABG pCO2 32.1 L POC ABG pO2 Sodium Potassium Chloride Carbon Dioxide BUN Creatinine Glucose POC Glucose 132 H 123 H Calcium Magnesium Direct Bilirubin AST ALT Alkaline Phosphatase Total Creatine Kinase CK-MB (CK-2) CK-MB (CK-2) Rel Index Troponin T C-Reactive Protein Total Protein Albumin Triglycerides Ur Specific [place] Urine WBC (Auto) 04/07/17 04/07/17 04/07/17 12:51 17:40 23:55 WBC RBC Hgb Hct MCV MCH Plt Count Lymph % (Auto) Lymph # Seg Neutrophils % Lymphocytes % (Manual) Monocytes % (Manual) Nucleated RBC % Seg Neutrophils # Seg Neutrophils # Man Monocytes # (Manual) PT INR Activated Clotting Time POC ABG pH POC ABG pCO2 POC ABG pO2 Sodium Potassium Chloride Carbon Dioxide BUN Creatinine Glucose POC Glucose 138 H 154 H 143 H Calcium Magnesium Direct Bilirubin AST ALT Alkaline Phosphatase Total Creatine Kinase CK-MB (CK-2) CK-MB (CK-2) Rel Index Troponin T C-Reactive Protein Total Protein Albumin Triglycerides Ur Specific [place] Urine WBC (Auto) 04/08/17 04/08/17 04/08/17 05:27 11:14 17:44 WBC RBC Hgb Hct MCV MCH Plt Count Lymph % (Auto) Lymph # Seg Neutrophils % Lymphocytes % (Manual) Monocytes % (Manual) Nucleated RBC % Seg Neutrophils # Seg Neutrophils # Man Monocytes # (Manual) PT INR Activated Clotting Time POC ABG pH POC ABG pCO2 POC ABG pO2 Sodium Potassium Chloride Carbon Dioxide BUN Creatinine Glucose POC Glucose 142 H 153 H 129 H Calcium Magnesium Direct Bilirubin AST ALT Alkaline Phosphatase Total Creatine Kinase CK-MB (CK-2) CK-MB (CK-2) Rel Index Troponin T C-Reactive Protein Total Protein Albumin Triglycerides Ur Specific [place] Urine WBC (Auto) 04/09/17 04/09/17 04/09/17 08:20 11:21 17:37 WBC RBC Hgb Hct MCV MCH Plt Count Lymph % (Auto) Lymph # Seg Neutrophils % Lymphocytes % (Manual) Monocytes % (Manual) Nucleated RBC % Seg Neutrophils # Seg Neutrophils # Man Monocytes # (Manual) PT INR Activated Clotting Time POC ABG pH POC ABG pCO2 POC ABG pO2 Sodium 147 H Potassium Chloride 108.8 H Carbon Dioxide BUN 39 H Creatinine 0.5 L Glucose 138 H POC Glucose 152 H 109 H Calcium Magnesium Direct Bilirubin AST ALT Alkaline Phosphatase Total Creatine Kinase CK-MB (CK-2) CK-MB (CK-2) Rel Index Troponin T C-Reactive Protein Total Protein Albumin Triglycerides Ur Specific [place] Urine WBC (Auto) 04/10/17 04/10/17 04/10/17 00:13 04:16 04:16 WBC RBC Hgb 11.5 L Hct MCV 96 H MCH Plt Count 103 L Lymph % (Auto) 11.1 L Lymph # Seg Neutrophils % 81.5 H Lymphocytes % (Manual) Monocytes % (Manual) Nucleated RBC % Seg Neutrophils # 8.8 H Seg Neutrophils # Man Monocytes # (Manual) PT INR Activated Clotting Time POC ABG pH POC ABG pCO2 POC ABG pO2 Sodium 148 H Potassium Chloride 109.0 H Carbon Dioxide BUN 36 H Creatinine 0.5 L Glucose 131 H POC Glucose 127 H Calcium 8.1 L Magnesium 2.40 H Direct Bilirubin AST 206 H ALT 228 H Alkaline Phosphatase 178 H Total Creatine Kinase CK-MB (CK-2) CK-MB (CK-2) Rel Index Troponin T C-Reactive Protein Total Protein Albumin 2.8 L Triglycerides Ur Specific [place] Urine WBC (Auto) 04/10/17 04/10/17 04/10/17 06:01 11:57 18:27 WBC RBC Hgb Hct MCV MCH Plt Count Lymph % (Auto) Lymph # Seg Neutrophils % Lymphocytes % (Manual) Monocytes % (Manual) Nucleated RBC % Seg Neutrophils # Seg Neutrophils # Man Monocytes # (Manual) PT INR Activated Clotting Time POC ABG pH POC ABG pCO2 POC ABG pO2 Sodium Potassium Chloride Carbon Dioxide BUN Creatinine Glucose POC Glucose 108 H 154 H 130 H Calcium Magnesium Direct Bilirubin AST ALT Alkaline Phosphatase Total Creatine Kinase CK-MB (CK-2) CK-MB (CK-2) Rel Index Troponin T C-Reactive Protein Total Protein Albumin Triglycerides Ur Specific [place] Urine WBC (Auto) 04/11/17 04/11/17 04/12/17 12:25 17:10 00:22 WBC RBC Hgb Hct MCV MCH Plt Count Lymph % (Auto) Lymph # Seg Neutrophils % Lymphocytes % (Manual) Monocytes % (Manual) Nucleated RBC % Seg Neutrophils # Seg Neutrophils # Man Monocytes # (Manual) PT INR Activated Clotting Time POC ABG pH POC ABG pCO2 POC ABG pO2 Sodium Potassium Chloride Carbon Dioxide BUN Creatinine Glucose POC Glucose 107 H 129 H 128 H Calcium Magnesium Direct Bilirubin AST ALT Alkaline Phosphatase Total Creatine Kinase CK-MB (CK-2) CK-MB (CK-2) Rel Index Troponin T C-Reactive Protein Total Protein Albumin Triglycerides Ur Specific [place] Urine WBC (Auto) 04/12/17 04/12/17 04/12/17 05:00 11:57 17:47 WBC RBC Hgb Hct MCV MCH Plt Count Lymph % (Auto) Lymph # Seg Neutrophils % Lymphocytes % (Manual) Monocytes % (Manual) Nucleated RBC % Seg Neutrophils # Seg Neutrophils # Man Monocytes # (Manual) PT INR Activated Clotting Time POC ABG pH POC ABG pCO2 POC ABG pO2 Sodium Potassium Chloride Carbon Dioxide BUN Creatinine Glucose POC Glucose 140 H 142 H Calcium Magnesium Direct Bilirubin AST 158 H ALT 184 H Alkaline Phosphatase 170 H Total Creatine Kinase CK-MB (CK-2) CK-MB (CK-2) Rel Index Troponin T C-Reactive Protein Total Protein Albumin 2.8 L Triglycerides Ur Specific [place] Urine WBC (Auto) 04/12/17 04/12/17 04/13/17 21:36 21:36 01:37 WBC RBC Hgb Hct MCV MCH Plt Count Lymph % (Auto) Lymph # Seg Neutrophils % Lymphocytes % (Manual) Monocytes % (Manual) Nucleated RBC % Seg Neutrophils # Seg Neutrophils # Man Monocytes # (Manual) PT INR Activated Clotting Time POC ABG pH POC ABG pCO2 POC ABG pO2 Sodium Potassium Chloride Carbon Dioxide BUN Creatinine Glucose POC Glucose 126 H Calcium Magnesium Direct Bilirubin AST ALT Alkaline Phosphatase Total Creatine Kinase 1404 H CK-MB (CK-2) 8.0 H CK-MB (CK-2) Rel Index Troponin T 0.767 H* C-Reactive Protein Total Protein Albumin Triglycerides Ur Specific [place] Urine WBC (Auto) 04/13/17 04/13/17 04/13/17 04:45 04:52 12:17 WBC RBC Hgb Hct MCV MCH Plt Count Lymph % (Auto) Lymph # Seg Neutrophils % Lymphocytes % (Manual) Monocytes % (Manual) Nucleated RBC % Seg Neutrophils # Seg Neutrophils # Man Monocytes # (Manual) PT INR Activated Clotting Time POC ABG pH POC ABG pCO2 POC ABG pO2 Sodium 148 H Potassium Chloride 112.8 H Carbon Dioxide BUN 33 H Creatinine 0.4 L Glucose 121 H POC Glucose 126 H 149 H Calcium Magnesium Direct Bilirubin AST 160 H ALT 189 H Alkaline Phosphatase 166 H Total Creatine Kinase CK-MB (CK-2) CK-MB (CK-2) Rel Index Troponin T C-Reactive Protein Total Protein Albumin 2.6 L Triglycerides Ur Specific [place] Urine WBC (Auto) 04/13/17 04/14/17 04/14/17 17:45 00:20 00:45 WBC RBC Hgb Hct MCV MCH Plt Count Lymph % (Auto) Lymph # Seg Neutrophils % Lymphocytes % (Manual) Monocytes % (Manual) Nucleated RBC % Seg Neutrophils # Seg Neutrophils # Man Monocytes # (Manual) PT INR Activated Clotting Time POC ABG pH POC ABG pCO2 POC ABG pO2 Sodium Potassium Chloride Carbon Dioxide BUN Creatinine Glucose POC Glucose 130 H 144 H 144 H Calcium Magnesium Direct Bilirubin AST ALT Alkaline Phosphatase Total Creatine Kinase CK-MB (CK-2) CK-MB (CK-2) Rel Index Troponin T C-Reactive Protein Total Protein Albumin Triglycerides Ur Specific [place] Urine WBC (Auto) 04/14/17 04/14/17 04/14/17 05:40 11:06 11:31 WBC RBC Hgb Hct MCV MCH Plt Count Lymph % (Auto) Lymph # Seg Neutrophils % Lymphocytes % (Manual) Monocytes % (Manual) Nucleated RBC % Seg Neutrophils # Seg Neutrophils # Man Monocytes # (Manual) PT INR Activated Clotting Time POC ABG pH POC ABG pCO2 POC ABG pO2 Sodium Potassium Chloride Carbon Dioxide BUN Creatinine Glucose POC Glucose 139 H 123 H Calcium Magnesium Direct Bilirubin AST ALT Alkaline Phosphatase Total Creatine Kinase CK-MB (CK-2) CK-MB (CK-2) Rel Index Troponin T C-Reactive Protein Total Protein Albumin Triglycerides Ur Specific [place] 1.033 H Urine WBC (Auto) > 182.0 H 04/14/17 04/14/17 04/15/17 18:00 23:52 05:15 WBC 12.5 H RBC 3.38 L Hgb 10.6 L Hct 32.7 L MCV 97 H MCH Plt Count 107 L Lymph % (Auto) 8.7 L Lymph # 1.1 L Seg Neutrophils % 86.1 H Lymphocytes % (Manual) Monocytes % (Manual) Nucleated RBC % Seg Neutrophils # 10.7 H Seg Neutrophils # Man Monocytes # (Manual) PT INR Activated Clotting Time POC ABG pH POC ABG pCO2 POC ABG pO2 Sodium Potassium Chloride Carbon Dioxide BUN Creatinine Glucose POC Glucose 133 H 133 H Calcium Magnesium Direct Bilirubin AST ALT Alkaline Phosphatase Total Creatine Kinase CK-MB (CK-2) CK-MB (CK-2) Rel Index Troponin T C-Reactive Protein Total Protein Albumin Triglycerides Ur Specific [place] Urine WBC (Auto) 04/15/17 04/15/17 04/15/17 05:15 05:25 11:50 WBC RBC Hgb Hct MCV MCH Plt Count Lymph % (Auto) Lymph # Seg Neutrophils % Lymphocytes % (Manual) Monocytes % (Manual) Nucleated RBC % Seg Neutrophils # Seg Neutrophils # Man Monocytes # (Manual) PT INR Activated Clotting Time POC ABG pH POC ABG pCO2 POC ABG pO2 Sodium 149 H Potassium 3.5 L Chloride 114.1 H Carbon Dioxide 21 L BUN 29 H Creatinine 0.4 L Glucose 128 H POC Glucose 133 H 107 H Calcium 8.3 L Magnesium Direct Bilirubin 0.4 H AST 149 H ALT 182 H Alkaline Phosphatase 143 H Total Creatine Kinase CK-MB (CK-2) CK-MB (CK-2) Rel Index Troponin T C-Reactive Protein Total Protein Albumin 2.5 L Triglycerides Ur Specific [place] Urine WBC (Auto) 04/15/17 04/16/17 04/16/17 16:55 00:02 03:17 WBC RBC 3.39 L Hgb 10.5 L Hct 32.4 L MCV 96 H MCH Plt Count 106 L Lymph % (Auto) 6.7 L Lymph # 0.6 L Seg Neutrophils % 86.8 H Lymphocytes % (Manual) Monocytes % (Manual) Nucleated RBC % Seg Neutrophils # 8.2 H Seg Neutrophils # Man Monocytes # (Manual) PT INR Activated Clotting Time POC ABG pH POC ABG pCO2 POC ABG pO2 Sodium Potassium Chloride Carbon Dioxide BUN Creatinine Glucose POC Glucose 146 H 148 H Calcium Magnesium Direct Bilirubin AST ALT Alkaline Phosphatase Total Creatine Kinase CK-MB (CK-2) CK-MB (CK-2) Rel Index Troponin T C-Reactive Protein Total Protein Albumin Triglycerides Ur Specific [place] Urine WBC (Auto) 04/16/17 04/16/17 04/16/17 03:17 05:19 11:13 WBC RBC Hgb Hct MCV MCH Plt Count Lymph % (Auto) Lymph # Seg Neutrophils % Lymphocytes % (Manual) Monocytes % (Manual) Nucleated RBC % Seg Neutrophils # Seg Neutrophils # Man Monocytes # (Manual) PT INR Activated Clotting Time POC ABG pH POC ABG pCO2 POC ABG pO2 Sodium 149 H Potassium Chloride 111.1 H Carbon Dioxide 20 L BUN 27 H Creatinine 0.3 L Glucose 156 H POC Glucose 171 H 169 H Calcium 8.3 L Magnesium Direct Bilirubin AST ALT Alkaline Phosphatase Total Creatine Kinase CK-MB (CK-2) CK-MB (CK-2) Rel Index Troponin T C-Reactive Protein Total Protein Albumin Triglycerides Ur Specific [place] Urine WBC (Auto) 04/16/17 04/17/17 04/17/17 17:03 00:00 05:09 WBC RBC Hgb Hct MCV MCH Plt Count Lymph % (Auto) Lymph # Seg Neutrophils % Lymphocytes % (Manual) Monocytes % (Manual) Nucleated RBC % Seg Neutrophils # Seg Neutrophils # Man Monocytes # (Manual) PT INR Activated Clotting Time POC ABG pH POC ABG pCO2 POC ABG pO2 Sodium Potassium Chloride Carbon Dioxide BUN Creatinine Glucose POC Glucose 151 H 165 H 145 H Calcium Magnesium Direct Bilirubin AST ALT Alkaline Phosphatase Total Creatine Kinase CK-MB (CK-2) CK-MB (CK-2) Rel Index Troponin T C-Reactive Protein Total Protein Albumin Triglycerides Ur Specific [place] Urine WBC (Auto) 04/17/17 11:38 WBC RBC Hgb Hct MCV MCH Plt Count Lymph % (Auto) Lymph # Seg Neutrophils % Lymphocytes % (Manual) Monocytes % (Manual) Nucleated RBC % Seg Neutrophils # Seg Neutrophils # Man Monocytes # (Manual) PT INR Activated Clotting Time POC ABG pH POC ABG pCO2 POC ABG pO2 Sodium Potassium Chloride Carbon Dioxide BUN Creatinine Glucose POC Glucose 170 H Calcium Magnesium Direct Bilirubin AST ALT Alkaline Phosphatase Total Creatine Kinase CK-MB (CK-2) CK-MB (CK-2) Rel Index Troponin T C-Reactive Protein Total Protein Albumin Triglycerides Ur Specific [place] Urine WBC (Auto) Chest x-ray: report reviewed, image reviewed
[2017-04-17] MEDS: D5/0.45NS 1,000 ML IV SCH (17:53)
[2017-04-18] MEDS: D5/0.45NS 1,000 ML IV SCH (04:41)
[2017-04-18 05:08] LABS: Basophils # (Auto) 0.1 K/mm3 (0.0-0.1); Eosinophils # (Auto) 0.4 K/mm3 (0.0-0.4); Eosinophils % (Auto) 5.3 % (0.0-4.3); Hemoglobin 9.8 gm/dl (11.8-15.2); Lymphocytes # (Auto) 1.2 K/mm3 (1.2-5.4); Lymphocytes % (Auto) 15.7 % (13.4-35.0); Mean Corpuscular HGB Conc 34 % (32-34); Mean Corpuscular Hemoglobin 32 pg (28-32); Mean Corpuscular Volume 95 fl (84-94); Monocytes # (Auto) 0.5 K/mm3 (0.0-0.8); Monocytes % (Auto) 6.5 % (0.0-7.3); Platelet Count 113 K/mm3 (140-440); Red Blood Count 3.05 M/mm3 (3.65-5.03); Red Cell Distribution Width 14.2 % (13.2-15.2)
[2017-04-18 06:28] LABS: BUN/Creatinine Ratio 63; Blood Urea Nitrogen 25 mg/dL (9-20); Calcium 8.3 mg/dL (8.4-10.2); Hemolysis Index 1
[2017-04-18] MEDS: NITRO DUR TD SCH (06:46)
[2017-04-18] MEDS: LOPRESSOR PO SCH ×2 (06:46→12:58)
--- NOTE | 2017-04-18 09:22 | Progress Note ---
Assessment and Plan Assessment and plan: 46 YO Male with No PMH was admitted through emergency room with history of V. fib cardiac arrest status post CPR per ACLS protocol, acute respiratory failure vent dependent , had tracheostomy and PEG placement, awaiting LTAC evaluation and placement --Acute hypoxic respiratory failure;s/p tracheostomy on vent , continue supportive care --Status post cardiac arrest: Status post CPR, unresponsive, supportive care --Anoxic brain injury; unresponsive, Poor prognosis, s/p trach and PEG --Acute anterior STEMI ; status post PCI , continue current cardiac medications Cardiology following , --Hypertension ; closely monitor , continue current antihypertensives and when necessary medications --MRSA pneumonia /aspiration pneumonia , contact isolation, ID following, completed zyvox on 04/10 --Cardiogenic shock; resolved, off pressors --Hypokalemia /hypernatremia, Corrected --Tracheostomy care, PEG feeds --DVT prophylaxis; heparin --Full CODE STATUS --DC planning. Case management , multiple social issues Possible SNF versus rehabilitation versus LTAC Patient has no payer source medicare disability application in process of being filled out by family Critical care time 31 minutes The high probability of a clinically significant, sudden or life threatening deterioration of the [Pulmonary, cardiac, renal] system(s) required my full and direct attention, intervention and personal management. The aggregate critical care time was [31] minutes. This time is in addition to time spent performing reported procedures but includes the following: [x] Data Review and interpretation [x] Patient assessment and monitoring of vital signs [x] Documentation [x] Medication orders and management History Interval history: Patient seen and evaluated Hospitalist Physical - Constitutional Vitals: Temp Pulse Resp BP Pulse Ox 99.0 F 96 H 29 H 97/48 99 04/18/17 08:00 04/18/17 08:00 04/18/17 08:00 04/18/17 08:00 04/18/17 07:48 General appearance: Present: no acute distress, well-nourished, other ( tracheostomy on ventilatory support) - EENT Eyes: Present: PERRL - Neck Neck: Present: supple - Respiratory Respiratory effort: normal Respiratory: bilateral: diminished, rhonchi, negative: rales, wheezing - Cardiovascular Rhythm: regular Heart Sounds: Present: S1 & S2 - Extremities Extremities: no ischemia, No edema - Abdominal General gastrointestinal: soft, non-tender, non-distended, normal bowel sounds - Integumentary Integumentary: Present: clear, warm - Psychiatric Psychiatric: other (unresponsive) - Neurologic Neurologic: other (unresponsive) Results - Labs CBC & Chem 7: 04/18/17 03:55 04/18/17 03:55 Labs: Laboratory Last Values WBC 7.8 K/mm3 (4.5-11.0) 04/18/17 03:55 RBC 3.05 M/mm3 (3.65-5.03) L 04/18/17 03:55 Hgb 9.8 gm/dl (11.8-15.2) L 04/18/17 03:55 Hct 29.0 % (35.5-45.6) L 04/18/17 03:55 MCV 95 fl (84-94) H 04/18/17 03:55 MCH 32 pg (28-32) 04/18/17 03:55 MCHC 34 % (32-34) 04/18/17 03:55 RDW 14.2 % (13.2-15.2) 04/18/17 03:55 Plt Count 113 K/mm3 (140-440) L 04/18/17 03:55 Lymph % (Auto) 15.7 % (13.4-35.0) 04/18/17 03:55 [place] % (Auto) 6.5 % (0.0-7.3) 04/18/17 03:55 Eos % (Auto) 5.3 % (0.0-4.3) H 04/18/17 03:55 Baso % (Auto) 1.0 % (0.0-1.8) 04/18/17 03:55 Lymph # 1.2 K/mm3 (1.2-5.4) 04/18/17 03:55 [place] # 0.5 K/mm3 (0.0-0.8) 04/18/17 03:55 Eos # 0.4 K/mm3 (0.0-0.4) 04/18/17 03:55 Baso # 0.1 K/mm3 (0.0-0.1) 04/18/17 03:55 Add Manual Diff Complete 03/30/17 03:50 Total Counted 100 03/30/17 03:50 Seg Neutrophils % 71.5 % (40.0-70.0) H 04/18/17 03:55 Seg Neuts % (Manual) 65.0 % (40.0-70.0) 03/30/17 03:50 Band Neutrophils % 17.0 % 03/30/17 03:50 Lymphocytes % (Manual) 7.0 % (13.4-35.0) L 03/30/17 03:50 Reactive Lymphs % (Man) 0 % 03/30/17 03:50 Monocytes % (Manual) 7.0 % (0.0-7.3) 03/30/17 03:50 Eosinophils % (Manual) 0 % (0.0-4.3) 03/30/17 03:50 Basophils % (Manual) 0 % (0.0-1.8) 03/30/17 03:50 Metamyelocytes % 4.0 % 03/30/17 03:50 Myelocytes % 0 % 03/30/17 03:50 Promyelocytes % 0 % 03/30/17 03:50 Blast Cells % 0 % 03/30/17 03:50 Nucleated RBC % Not Reportable 03/30/17 03:50 Seg Neutrophils # 5.5 K/mm3 (1.8-7.7) 04/18/17 03:55 Seg Neutrophils # Man 12.7 K/mm3 (1.8-7.7) H 03/30/17 03:50 Band Neutrophils # 3.3 K/mm3 03/30/17 03:50 Lymphocytes # (Manual) 1.4 K/mm3 (1.2-5.4) 03/30/17 03:50 Abs React Lymphs (Man) 0.0 K/mm3 03/30/17 03:50 Monocytes # (Manual) 1.4 K/mm3 (0.0-0.8) H 03/30/17 03:50 Eosinophils # (Manual) 0.0 K/mm3 (0.0-0.4) 03/30/17 03:50 Basophils # (Manual) 0.0 K/mm3 (0.0-0.1) 03/30/17 03:50 Metamyelocytes # 0.8 K/mm3 03/30/17 03:50 Myelocytes # 0.0 K/mm3 03/30/17 03:50 Promyelocytes # 0.0 K/mm3 03/30/17 03:50 Blast Cells # 0.0 K/mm3 03/30/17 03:50 WBC Morphology Not Reportable 03/30/17 03:50 Hypersegmented Neuts Not Reportable 03/30/17 03:50 Hyposegmented Neuts Not Reportable 03/30/17 03:50 Hypogranular Neuts Not Reportable 03/30/17 03:50 Smudge Cells Not Reportable 03/30/17 03:50 Toxic Granulation Not Reportable 03/30/17 03:50 Toxic Vacuolation Not Reportable 03/30/17 03:50 Dohle Bodies Not Reportable 03/30/17 03:50 Pel[place]-Huet Anomaly Not Reportable 03/30/17 03:50 Sherry Rods Not Reportable 03/30/17 03:50 Platelet Estimate Appears normal 03/30/17 03:50 Clumped Platelets Not Reportable 03/30/17 03:50 Plt Clumps, EDTA Not Reportable 03/30/17 03:50 Large Platelets Not Reportable 03/30/17 03:50 Giant Platelets Not Reportable 03/30/17 03:50 Platelet Satelliting Not Reportable 03/30/17 03:50 Plt Morphology Comment Not Reportable 03/30/17 03:50 RBC Morphology Not Reportable 03/30/17 03:50 Dimorphic RBCs Not Reportable 03/30/17 03:50 Polychromasia Not Reportable 03/30/17 03:50 Hypochromasia Not Reportable 03/30/17 03:50 Poikilocytosis Not Reportable 03/30/17 03:50 Anisocytosis Few 03/30/17 03:50 Microcytosis Not Reportable 03/30/17 03:50 Macrocytosis Not Reportable 03/30/17 03:50 Spherocytes Not Reportable 03/30/17 03:50 Pappenheimer Bodies Not Reportable 03/30/17 03:50 Sickle Cells Not Reportable 03/30/17 03:50 Target Cells Not Reportable 03/30/17 03:50 Tear Drop Cells Not Reportable 03/30/17 03:50 Ovalocytes Not Reportable 03/30/17 03:50 Helmet Cells Not Reportable 03/30/17 03:50 [place] Bodies Not Reportable 03/30/17 03:50 [place] Rings Not Reportable 03/30/17 03:50 [place] Cells Not Reportable 03/30/17 03:50 Bite Cells Not Reportable 03/30/17 03:50 Crenated Cell Not Reportable 03/30/17 03:50 Elliptocytes Not Reportable 03/30/17 03:50 Acanthocytes (Spur) Not Reportable 03/30/17 03:50 Rouleaux Not Reportable 03/30/17 03:50 Hemoglobin C Crystals Not Reportable 03/30/17 03:50 Schistocytes Not Reportable 03/30/17 03:50 Malaria parasites Not Reportable 03/30/17 03:50 [place] Bodies Not Reportable 03/30/17 03:50 Hem Pathologist Commnt No 03/30/17 03:50 PT 14.9 Sec. (12.2-14.9) 04/10/17 04:16 INR 1.11 (0.87-1.13) 04/10/17 04:16 APTT 27.8 Sec. (24.2-36.6) 04/10/17 04:16 Activated Clotting Time 92 (74-137) 03/29/17 17:47 POC ABG pH 7.460 (7.35-7.45) H 04/18/17 05:30 POC ABG pCO2 30.8 (35-45) L 04/18/17 05:30 POC ABG pO2 129 (80-105) H 04/18/17 05:30 POC ABG HCO3 21.9 04/18/17 05:30 POC ABG Total CO2 23 04/18/17 05:30 POC ABG O2 Sat 99 04/18/17 05:30 POC ABG Base Excess -2 04/18/17 05:30 FiO2 35 % 04/18/17 05:30 Sodium 141 mmol/L (137-145) D 04/18/17 03:55 Potassium 3.6 mmol/L (3.6-5.0) 04/18/17 03:55 Chloride 106.1 mmol/L (98-107) 04/18/17 03:55 Carbon Dioxide 21 mmol/L (22-30) L 04/18/17 03:55 Anion Gap 18 mmol/L 04/18/17 03:55 BUN 25 mg/dL (9-20) H 04/18/17 03:55 Creatinine 0.4 mg/dL (0.8-1.5) L 04/18/17 03:55 Estimated GFR > 60 ml/min 04/18/17 03:55 BUN/Creatinine Ratio 63 % 04/18/17 03:55 Glucose 123 mg/dL (75-100) H 04/18/17 03:55 POC Glucose 131 (70-105) H 04/18/17 00:01 Calcium 8.3 mg/dL (8.4-10.2) L 04/18/17 03:55 Phosphorus 3.50 mg/dL (2.5-4.5) 04/13/17 04:45 Magnesium 1.90 mg/dL (1.7-2.3) 04/18/17 03:55 Total Bilirubin 1.00 mg/dL (0.1-1.2) 04/15/17 05:15 Direct Bilirubin 0.4 mg/dL (0-0.2) H 04/15/17 05:15 Indirect Bilirubin 0.6 mg/dL 04/15/17 05:15 AST 149 units/L (5-40) H 04/15/17 05:15 ALT 182 units/L (7-56) H 04/15/17 05:15 Alkaline Phosphatase 143 units/L (35-129) H 04/15/17 05:15 Total Creatine Kinase 1404 units/L (55-170) H 04/12/17 21:36 CK-MB (CK-2) 8.0 ng/mL (0.0-4.0) H 04/12/17 21:36 CK-MB (CK-2) Rel Index 0.5 (0-4) 04/12/17 21:36 Troponin T 0.767 ng/mL (0.00-0.029) H* 04/12/17 21:36 C-Reactive Protein 21.80 mg/dL (0.00-1.30) H 03/30/17 16:04 Total Protein 6.4 g/dL (6.3-8.2) 04/15/17 05:15 Albumin 2.5 g/dL (3.9-5) L 04/15/17 05:15 Albumin/Globulin Ratio 0.6 % 04/15/17 05:15 Triglycerides 151 mg/dL (2-149) H 04/01/17 04:29 Cholesterol 164 mg/dL (50-199) 03/29/17 19:52 LDL Cholesterol Direct 81 mg/dL (50-130) 03/29/17 19:52 HDL Cholesterol 44 mg/dL (40-59) 03/29/17 19:52 Cholesterol/HDL Ratio 3.72 % 03/29/17 19:52 Urine Color [place] (Yellow) 04/14/17 11:06 Urine Turbidity Slightly-cloudy (Clear) 04/14/17 11:06 Urine pH 5.0 (5.0-7.0) 04/14/17 11:06 Ur Specific [place] 1.033 (1.003-1.030) H 04/14/17 11:06 Urine Protein 100 mg/dl mg/dL (Negative) 04/14/17 11:06 Urine Glucose (UA) Neg mg/dL (Negative) 04/14/17 11:06 Urine Ketones Neg mg/dL (Negative) 04/14/17 11:06 Urine Blood Lg (Negative) 04/14/17 11:06 Urine Nitrite Pos (Negative) 04/14/17 11:06 Urine Bilirubin Neg (Negative) 04/14/17 11:06 Urine Urobilinogen 4.0 mg/dL (<2.0) 04/14/17 11:06 Ur Leukocyte Esterase Mod (Negative) 04/14/17 11:06 Urine WBC (Auto) > 182.0 /HPF (0.0-6.0) H 04/14/17 11:06 Urine RBC (Auto) > 182.0 /HPF (0.0-6.0) 04/14/17 11:06 Amorphous Crystals 1+ 03/30/17 09:45 Urine Mucus Few /HPF 04/14/17 11:06 Urine Opiates Screen Presumptive negative 03/30/17 09:45 Urine Methadone Screen Presumptive negative 03/30/17 09:45 Ur Barbiturates Screen Presumptive negative 03/30/17 09:45 Ur Phencyclidine Scrn Presumptive negative 03/30/17 09:45 Ur Amphetamines Screen Presumptive positive 03/30/17 09:45 U Benzodiazepines Scrn Presumptive positive 03/30/17 09:45 Urine Cocaine Screen Presumptive negative 03/30/17 09:45 U Marijuana (THC) Screen Presumptive negative 03/30/17 09:45 Drugs of Abuse Note Disclamer 03/30/17 09:45 Blood Type O POSITIVE 03/29/17 11:35 Antibody Screen Negative 03/29/17 11:35
[2017-04-18] MEDS: COLACE FEEDTUBE SCH ×2 (09:44→22:09)
[2017-04-18] MEDS: PROTONIX FEEDTUBE SCH (09:45)
[2017-04-18] MEDS: ASPIRIN PO SCH (09:45)
[2017-04-18] MEDS: cefTRIAXone 1 GM in NACL 0.9% 20 ML IV SCH (09:45)
[2017-04-18] MEDS: HEPARIN SUB-Q SCH ×2 (09:45→22:09)
[2017-04-18] MEDS: PLAVIX PO SCH (09:45)
[2017-04-18] MEDS: ZESTRIL PO SCH (09:46)
--- NOTE | 2017-04-18 12:42 | Progress Note ---
Assessment and Plan Out of hospital VF arrest Acute anterior STEMI s/p PCI of the LAD using BM stents deployed. reduced LVEF 30-35% by echocardiogram. DAPT resumed Respiratory failure on the vent via trach Anoxic brain injury Pneumonia: MRSA UTI and fever Elevated Transaminitis amiodarone and statins discontinued Conservative cardiac management Subjective Date of service: 04/18/17 Principal diagnosis: septic shock Interval history: Patient remains intubated, unresponsive on the vent. Objective Vital Signs Temp Pulse Pulse Resp BP Pulse Ox Pulse Ox 04/18/17 12:00 90 86 25 H 98/58 98 04/18/17 11:32 99.0 F 04/18/17 11:29 84 92/52 98 04/18/17 11:00 88 27 H 89/47 96 04/18/17 10:00 95 H 29 H 99/59 93 04/18/17 09:46 98 H 97/49 04/18/17 09:00 96 H 27 H 93/46 96 04/18/17 08:00 99.0 F 96 H 29 H 97/48 04/18/17 07:48 95 H 90/48 99 04/18/17 07:40 93 H 28 H 99 04/18/17 07:00 95 H 29 H 98/59 99 04/18/17 06:46 97 H 91/58 04/18/17 06:00 92 H 26 H 91/58 98 04/18/17 05:31 100 04/18/17 05:28 88 92/52 100 04/18/17 05:00 93 H 28 H 92/52 04/18/17 04:00 99.9 F H 92 H 29 H 100/57 04/18/17 03:00 92 H 27 H 90/49 99 04/18/17 02:00 94 H 28 H 97/51 100 04/18/17 01:00 101 H 33 H 97/51 87 04/18/17 00:01 96 H 26 H 92/49 96 04/18/17 00:00 100.4 F H 96 H 27 H 92/49 94 04/17/17 23:51 86 101/49 98 04/17/17 23:46 95 H 101/49 04/17/17 23:00 98 H 30 H 101/49 97 04/17/17 22:00 100 H 30 H 94/52 89 04/17/17 21:00 95 H 32 H 100/59 04/17/17 20:00 100.5 F H 91 H 30 H 98/57 92 04/17/17 19:21 98 04/17/17 19:17 89 93/55 98 04/17/17 19:00 84 27 H 93/55 97 04/17/17 18:15 91 H 101/64 99 04/17/17 18:13 100 04/17/17 18:00 93 H 27 H 101/64 04/17/17 17:52 97 H 102/77 04/17/17 17:00 92 H 27 H 106/67 04/17/17 16:00 86 103 H 25 H 100/64 97 04/17/17 15:29 99.0 F 04/17/17 15:27 86 104/61 100 04/17/17 15:00 84 27 H 104/61 96 04/17/17 14:00 87 27 H 104/66 93 04/17/17 13:00 82 24 97/63 97 - Physical Examination General: Other (unresponsive on the vent) Cardiac: Positive: Reg Rate and Rhythm - Labs and Meds CBC 04/18/17 Range/Units 03:55 WBC 7.8 (4.5-11.0) K/mm3 RBC 3.05 L (3.65-5.03) M/mm3 Hgb 9.8 L (11.8-15.2) gm/dl Hct 29.0 L (35.5-45.6) % Plt Count 113 L (140-440) K/mm3 Lymph # 1.2 (1.2-5.4) K/mm3 [place] # 0.5 (0.0-0.8) K/mm3 Eos # 0.4 (0.0-0.4) K/mm3 Baso # 0.1 (0.0-0.1) K/mm3 Comprehensive Metabolic Panel 04/18/17 Range/Units 03:55 Sodium 141 D (137-145) mmol/L Potassium 3.6 (3.6-5.0) mmol/L Chloride 106.1 (98-107) mmol/L Carbon Dioxide 21 L (22-30) mmol/L BUN 25 H (9-20) mg/dL Creatinine 0.4 L (0.8-1.5) mg/dL Glucose 123 H (75-100) mg/dL Calcium 8.3 L (8.4-10.2) mg/dL
--- NOTE | 2017-04-18 15:46 | Progress Note ---
Assessment and Plan Imp: 1. s/p CP arrest 2. Anoxic enceph. 3. Acute respiratory failure, hypoxia 4. s/p Trach/PEG 5. Hypernatremia 6. STEMI/ICMP 7. UTI Rec: 1. Stop IVFs; give NS boluses prn if BP drops; would tolerate a lower MAP of 55- 60 2. Rocephin vs. E.coli & monitor temp curve; recheck sputum culture 3. Daily PSV 4. Plavix 5. TFs, DVT/GI PPx 6. Very poor prognosis and bad outcome is expected; no family present; complex patient Subjective Date of service: 04/18/17 Principal diagnosis: septic shock Interval history: No events. Unresponsive. Tolerating PSV today. + Copious secretions. Active Medications Acetaminophen (Tylenol) 1,000 mg PO Q6H PRN PRN Reason: Fever >101 Last Admin: 04/17/17 09:58 Dose: 1,000 mg Albuterol (Proventil) 2.5 mg IH Q3HRT PRN PRN Reason: Shortness Of Breath Last Admin: 04/13/17 21:25 Dose: 2.5 mg Lipase/Protease/Amylase (Pancreaze Dr 10,500 Unit) 1 each FEEDTUBE PRN PRN PRN Reason: For Clogged Feeding Tube Aspirin (Aspirin) 325 mg PO QDAY [facility] Last Admin: 04/18/17 09:45 Dose: 325 mg Clopidogrel Bisulfate (Plavix) 75 mg PO QDAY [facility] Last Admin: 04/18/17 09:45 Dose: 75 mg Dextrose (D50w (25gm) Syringe) 50 ml IV PRN PRN PRN Reason: Hypoglycemia Docusate Sodium (Colace) 100 mg FEEDTUBE BID [facility] Last Admin: 04/18/17 09:44 Dose: 100 mg Heparin Sodium (Porcine) (Heparin) 5,000 unit SUB-Q Q12HR [facility] Last Admin: 04/18/17 09:45 Dose: 5,000 unit Hydrophilic Ointment (Vaseline Lip Therapy) 1 applic TP Q2HR PRN PRN Reason: Dry Lips Last Admin: 03/31/17 22:50 Dose: 1 applic Ceftriaxone Sodium 1 gm/ (Sodium Chloride) 20 mls @ 20 mls/10 min IV Q24HR [facility] Stop: 04/22/17 12:00 Last Admin: 04/18/17 09:45 Dose: 20 mls/10 min Lisinopril (Zestril) 2.5 mg PO QDAY [facility] Last Admin: 04/18/17 09:46 Dose: Not Given Metoprolol Tartrate (Lopressor) 2.5 mg IV Q4HR PRN PRN Reason: HR>130 Last Admin: 04/09/17 19:41 Dose: 2.5 mg Metoprolol Tartrate (Lopressor) 50 mg PO Q6HR [facility] Last Admin: 04/18/17 12:58 Dose: Not Given Multi-Ingred Cream/Lotion/Oil/Oint (Artificial Tears Ophth Oint) 1 applic OU Q4HR PRN PRN Reason: Dry Eye(s) Last Admin: 03/31/17 22:51 Dose: 1 applic Nitroglycerin (Nitro Dur) 0.2 mg TD QDAY@0600 [facility] Last Admin: 04/18/17 06:46 Dose: Not Given Pantoprazole (Protonix) 40 mg FEEDTUBE DAILY [facility] Last Admin: 04/18/17 09:45 Dose: 40 mg Simple Syrup (Simple Syrup) 15 ml FEEDTUBE PRN PRN PRN Reason: Hypoglycemia Simple Syrup (Simple Syrup) 30 ml FEEDTUBE PRN PRN PRN Reason: Hypoglycemia Sodium Bicarbonate (Sodium Bicarbonate) 325 mg FEEDTUBE PRN PRN PRN Reason: For Clogged Feeding Tube Objective Vital Signs - 12hr 04/18/17 04/18/17 04/18/17 04:00 05:00 05:28 Temperature 99.9 F H Pulse Rate 92 H 93 H 88 Pulse Rate [ From Monitor] Respiratory 29 H 28 H Rate Blood Pressure 100/57 92/52 92/52 O2 Sat by Pulse 100 Oximetry O2 Sat by Pulse Oximetry [ Assessment] 04/18/17 04/18/17 04/18/17 05:31 06:00 06:46 Temperature Pulse Rate 92 H 97 H Pulse Rate [ From Monitor] Respiratory 26 H Rate Blood Pressure 91/58 91/58 O2 Sat by Pulse 98 Oximetry O2 Sat by Pulse 100 Oximetry [ Assessment] 04/18/17 04/18/17 04/18/17 07:00 07:40 07:48 Temperature Pulse Rate 95 H 95 H Pulse Rate [ 93 H From Monitor] Respiratory 29 H 28 H Rate Blood Pressure 98/59 90/48 O2 Sat by Pulse 99 99 99 Oximetry O2 Sat by Pulse Oximetry [ Assessment] 04/18/17 04/18/17 04/18/17 08:00 09:00 09:46 Temperature 99.0 F Pulse Rate 96 H 96 H 98 H Pulse Rate [ From Monitor] Respiratory 29 H 27 H Rate Blood Pressure 97/48 93/46 97/49 O2 Sat by Pulse 96 Oximetry O2 Sat by Pulse Oximetry [ Assessment] 04/18/17 04/18/17 04/18/17 10:00 11:00 11:29 Temperature Pulse Rate 95 H 88 84 Pulse Rate [ From Monitor] Respiratory 29 H 27 H Rate Blood Pressure 99/59 89/47 92/52 O2 Sat by Pulse 93 96 98 Oximetry O2 Sat by Pulse Oximetry [ Assessment] 04/18/17 04/18/17 04/18/17 11:32 12:00 12:58 Temperature 99.0 F Pulse Rate 90 90 Pulse Rate [ 86 From Monitor] Respiratory 25 H Rate Blood Pressure 98/58 93/53 O2 Sat by Pulse 98 Oximetry O2 Sat by Pulse Oximetry [ Assessment] 04/18/17 04/18/17 04/18/17 13:00 14:00 15:00 Temperature Pulse Rate 89 95 H 99 H Pulse Rate [ From Monitor] Respiratory 27 H 27 H 36 H Rate Blood Pressure 94/54 92/54 111/68 O2 Sat by Pulse 97 98 Oximetry O2 Sat by Pulse 98 Oximetry [ Assessment] 04/18/17 15:20 Temperature Pulse Rate Pulse Rate [ 97 H From Monitor] Respiratory 26 H Rate Blood Pressure O2 Sat by Pulse 92 Oximetry O2 Sat by Pulse Oximetry [ Assessment] Constitutional: comatose Eyes: non-icteric ENT: oropharynx moist Neck: supple Effort: normal Ascultation: Bilateral: other (coarse BS bilaterally) Cardiovascular: regular rate and rhythm (no mrg) Gastrointestinal: normoactive bowel sounds, soft, non-tender, non-distended, other (mild distention) Integumentary: normal, other (multiple tattoos) Extremities: no cyanosis, no edema, pink and warm Neurologic: other (comatose, flaccid extremities, good cough w/ suction) Psychiatric: other (unable to assess) CBC and BMP: 04/18/17 03:55 04/18/17 03:55 ABG, PT/INR, D-dimer: ABG POC ABG pH 7.460 (7.35-7.45) H 04/18/17 05:30 POC ABG pCO2 30.8 (35-45) L 04/18/17 05:30 POC ABG pO2 129 (80-105) H 04/18/17 05:30 POC ABG HCO3 21.9 04/18/17 05:30 POC ABG Total CO2 23 04/18/17 05:30 POC ABG O2 Sat 99 04/18/17 05:30 PT/INR, D-dimer PT 14.9 Sec. (12.2-14.9) 04/10/17 04:16 INR 1.11 (0.87-1.13) 04/10/17 04:16 Abnormal lab findings: Abnormal Labs 03/29/17 03/29/17 03/29/17 11:35 11:35 11:40 WBC RBC Hgb Hct MCV 98 H MCH 33 H Plt Count Lymph % (Auto) Eos % (Auto) Lymph # Seg Neutrophils % Lymphocytes % (Manual) Monocytes % (Manual) 9.0 H Nucleated RBC % 1.0 H Seg Neutrophils # Seg Neutrophils # Man Monocytes # (Manual) 0.9 H PT 15.8 H INR 1.20 H Activated Clotting Time POC ABG pH POC ABG pCO2 POC ABG pO2 Sodium Potassium 2.7 L* Chloride 95.3 L Carbon Dioxide 17 L BUN Creatinine Glucose 435 H POC Glucose Calcium Magnesium Direct Bilirubin AST ALT Alkaline Phosphatase Total Creatine Kinase CK-MB (CK-2) CK-MB (CK-2) Rel Index Troponin T C-Reactive Protein Total Protein 6.1 L Albumin 3.5 L Triglycerides Ur Specific [place] Urine WBC (Auto) 03/29/17 03/29/17 03/29/17 12:34 13:10 13:25 WBC RBC Hgb Hct MCV MCH Plt Count Lymph % (Auto) Eos % (Auto) Lymph # Seg Neutrophils % Lymphocytes % (Manual) Monocytes % (Manual) Nucleated RBC % Seg Neutrophils # Seg Neutrophils # Man Monocytes # (Manual) PT INR Activated Clotting Time 142 H 169 H 175 H POC ABG pH POC ABG pCO2 POC ABG pO2 Sodium Potassium Chloride Carbon Dioxide BUN Creatinine Glucose POC Glucose Calcium Magnesium Direct Bilirubin AST ALT Alkaline Phosphatase Total Creatine Kinase CK-MB (CK-2) CK-MB (CK-2) Rel Index Troponin T C-Reactive Protein Total Protein Albumin Triglycerides Ur Specific [place] Urine WBC (Auto) 03/29/17 03/29/17 03/29/17 14:50 15:18 19:52 WBC RBC Hgb Hct MCV MCH Plt Count Lymph % (Auto) Eos % (Auto) Lymph # Seg Neutrophils % Lymphocytes % (Manual) Monocytes % (Manual) Nucleated RBC % Seg Neutrophils # Seg Neutrophils # Man Monocytes # (Manual) PT INR Activated Clotting Time 175 H POC ABG pH 7.293 L POC ABG pCO2 POC ABG pO2 602 H Sodium Potassium Chloride Carbon Dioxide BUN Creatinine Glucose POC Glucose Calcium Magnesium Direct Bilirubin AST ALT Alkaline Phosphatase Total Creatine Kinase 7263 H CK-MB (CK-2) > 300.0 H CK-MB (CK-2) Rel Index 4.1 H Troponin T 8.080 H* D C-Reactive Protein Total Protein Albumin Triglycerides 195 H Ur Specific [place] Urine WBC (Auto) 03/30/17 03/30/17 03/30/17 03:50 03:50 06:19 WBC 19.5 H RBC Hgb Hct MCV MCH Plt Count Lymph % (Auto) Eos % (Auto) Lymph # Seg Neutrophils % Lymphocytes % (Manual) 7.0 L Monocytes % (Manual) Nucleated RBC % Seg Neutrophils # Seg Neutrophils # Man 12.7 H Monocytes # (Manual) 1.4 H PT INR Activated Clotting Time POC ABG pH POC ABG pCO2 28.2 L POC ABG pO2 108 H Sodium Potassium Chloride 108.9 H Carbon Dioxide 15 L BUN 25 H Creatinine Glucose 158 H POC Glucose Calcium 8.1 L Magnesium Direct Bilirubin AST ALT Alkaline Phosphatase Total Creatine Kinase 7963 H CK-MB (CK-2) > 300.0 H CK-MB (CK-2) Rel Index Troponin T 6.850 H* C-Reactive Protein Total Protein Albumin Triglycerides Ur Specific [place] Urine WBC (Auto) 03/30/17 03/30/17 03/31/17 09:45 16:04 02:19 WBC RBC Hgb Hct MCV MCH Plt Count Lymph % (Auto) Eos % (Auto) Lymph # Seg Neutrophils % Lymphocytes % (Manual) Monocytes % (Manual) Nucleated RBC % Seg Neutrophils # Seg Neutrophils # Man Monocytes # (Manual) PT INR Activated Clotting Time POC ABG pH POC ABG pCO2 POC ABG pO2 Sodium Potassium Chloride Carbon Dioxide BUN Creatinine Glucose POC Glucose 137 H Calcium Magnesium Direct Bilirubin AST ALT Alkaline Phosphatase Total Creatine Kinase CK-MB (CK-2) CK-MB (CK-2) Rel Index Troponin T C-Reactive Protein 21.80 H Total Protein Albumin Triglycerides Ur Specific [place] 1.031 H Urine WBC (Auto) 03/31/17 03/31/17 03/31/17 03:57 06:54 09:22 WBC RBC Hgb Hct MCV MCH Plt Count Lymph % (Auto) Eos % (Auto) Lymph # Seg Neutrophils % Lymphocytes % (Manual) Monocytes % (Manual) Nucleated RBC % Seg Neutrophils # Seg Neutrophils # Man Monocytes # (Manual) PT INR Activated Clotting Time POC ABG pH 7.475 H POC ABG pCO2 25.4 L POC ABG pO2 62 L Sodium Potassium Chloride Carbon Dioxide 19 L BUN 22 H Creatinine 0.6 L Glucose 148 H POC Glucose 143 H Calcium 8.3 L Magnesium Direct Bilirubin AST ALT Alkaline Phosphatase Total Creatine Kinase CK-MB (CK-2) CK-MB (CK-2) Rel Index Troponin T C-Reactive Protein Total Protein Albumin Triglycerides Ur Specific [place] Urine WBC (Auto) 03/31/17 03/31/17 03/31/17 11:40 17:47 23:38 WBC RBC Hgb Hct MCV MCH Plt Count Lymph % (Auto) Eos % (Auto) Lymph # Seg Neutrophils % Lymphocytes % (Manual) Monocytes % (Manual) Nucleated RBC % Seg Neutrophils # Seg Neutrophils # Man Monocytes # (Manual) PT INR Activated Clotting Time POC ABG pH POC ABG pCO2 POC ABG pO2 Sodium Potassium Chloride Carbon Dioxide BUN Creatinine Glucose POC Glucose 127 H 137 H 148 H Calcium Magnesium Direct Bilirubin AST ALT Alkaline Phosphatase Total Creatine Kinase CK-MB (CK-2) CK-MB (CK-2) Rel Index Troponin T C-Reactive Protein Total Protein Albumin Triglycerides Ur Specific [place] Urine WBC (Auto) 04/01/17 04/01/17 04/01/17 04:29 05:01 11:54 WBC RBC Hgb Hct MCV MCH Plt Count Lymph % (Auto) Eos % (Auto) Lymph # Seg Neutrophils % Lymphocytes % (Manual) Monocytes % (Manual) Nucleated RBC % Seg Neutrophils # Seg Neutrophils # Man Monocytes # (Manual) PT INR Activated Clotting Time POC ABG pH 7.513 H POC ABG pCO2 22.1 L POC ABG pO2 64 L Sodium Potassium Chloride Carbon Dioxide BUN Creatinine Glucose POC Glucose 121 H Calcium Magnesium Direct Bilirubin AST ALT Alkaline Phosphatase Total Creatine Kinase CK-MB (CK-2) CK-MB (CK-2) Rel Index Troponin T C-Reactive Protein Total Protein Albumin Triglycerides 151 H Ur Specific [place] Urine WBC (Auto) 04/01/17 04/02/17 04/02/17 18:17 00:11 04:52 WBC RBC Hgb Hct MCV MCH Plt Count Lymph % (Auto) Eos % (Auto) Lymph # Seg Neutrophils % Lymphocytes % (Manual) Monocytes % (Manual) Nucleated RBC % Seg Neutrophils # Seg Neutrophils # Man Monocytes # (Manual) PT INR Activated Clotting Time POC ABG pH 7.524 H POC ABG pCO2 25.5 L POC ABG pO2 66 L Sodium Potassium Chloride Carbon Dioxide BUN Creatinine Glucose POC Glucose 117 H 122 H Calcium Magnesium Direct Bilirubin AST ALT Alkaline Phosphatase Total Creatine Kinase CK-MB (CK-2) CK-MB (CK-2) Rel Index Troponin T C-Reactive Protein Total Protein Albumin Triglycerides Ur Specific [place] Urine WBC (Auto) 04/02/17 04/02/17 04/02/17 05:18 10:41 12:19 WBC RBC Hgb Hct MCV MCH Plt Count Lymph % (Auto) Eos % (Auto) Lymph # Seg Neutrophils % Lymphocytes % (Manual) Monocytes % (Manual) Nucleated RBC % Seg Neutrophils # Seg Neutrophils # Man Monocytes # (Manual) PT INR Activated Clotting Time POC ABG pH 7.534 H POC ABG pCO2 27.4 L POC ABG pO2 Sodium Potassium Chloride Carbon Dioxide BUN Creatinine Glucose POC Glucose 132 H 129 H Calcium Magnesium Direct Bilirubin AST ALT Alkaline Phosphatase Total Creatine Kinase CK-MB (CK-2) CK-MB (CK-2) Rel Index Troponin T C-Reactive Protein Total Protein Albumin Triglycerides Ur Specific [place] Urine WBC (Auto) 04/02/17 04/03/17 04/03/17 18:05 00:08 05:09 WBC RBC Hgb Hct MCV MCH Plt Count Lymph % (Auto) Eos % (Auto) Lymph # Seg Neutrophils % Lymphocytes % (Manual) Monocytes % (Manual) Nucleated RBC % Seg Neutrophils # Seg Neutrophils # Man Monocytes # (Manual) PT INR Activated Clotting Time POC ABG pH 7.455 H POC ABG pCO2 33.2 L POC ABG pO2 120 H Sodium Potassium Chloride Carbon Dioxide BUN Creatinine Glucose POC Glucose 136 H 128 H Calcium Magnesium Direct Bilirubin AST ALT Alkaline Phosphatase Total Creatine Kinase CK-MB (CK-2) CK-MB (CK-2) Rel Index Troponin T C-Reactive Protein Total Protein Albumin Triglycerides Ur Specific [place] Urine WBC (Auto) 04/03/17 04/03/17 04/03/17 06:32 11:54 12:16 WBC 11.9 H RBC Hgb Hct MCV MCH Plt Count 125 L Lymph % (Auto) 4.8 L Eos % (Auto) Lymph # 0.6 L Seg Neutrophils % 86.7 H Lymphocytes % (Manual) Monocytes % (Manual) Nucleated RBC % Seg Neutrophils # 10.3 H Seg Neutrophils # Man Monocytes # (Manual) PT INR Activated Clotting Time POC ABG pH POC ABG pCO2 POC ABG pO2 Sodium Potassium Chloride Carbon Dioxide BUN Creatinine Glucose POC Glucose 138 H 143 H Calcium Magnesium Direct Bilirubin AST ALT Alkaline Phosphatase Total Creatine Kinase CK-MB (CK-2) CK-MB (CK-2) Rel Index Troponin T C-Reactive Protein Total Protein Albumin Triglycerides Ur Specific [place] Urine WBC (Auto) 04/03/17 04/03/17 04/04/17 17:33 23:59 04:34 WBC RBC Hgb Hct MCV MCH Plt Count Lymph % (Auto) Eos % (Auto) Lymph # Seg Neutrophils % Lymphocytes % (Manual) Monocytes % (Manual) Nucleated RBC % Seg Neutrophils # Seg Neutrophils # Man Monocytes # (Manual) PT INR Activated Clotting Time POC ABG pH 7.457 H POC ABG pCO2 29.8 L POC ABG pO2 76 L Sodium Potassium Chloride Carbon Dioxide BUN Creatinine Glucose POC Glucose 130 H 155 H Calcium Magnesium Direct Bilirubin AST ALT Alkaline Phosphatase Total Creatine Kinase CK-MB (CK-2) CK-MB (CK-2) Rel Index Troponin T C-Reactive Protein Total Protein Albumin Triglycerides Ur Specific [place] Urine WBC (Auto) 04/04/17 04/04/17 04/04/17 05:27 12:22 18:18 WBC RBC Hgb Hct MCV MCH Plt Count Lymph % (Auto) Eos % (Auto) Lymph # Seg Neutrophils % Lymphocytes % (Manual) Monocytes % (Manual) Nucleated RBC % Seg Neutrophils # Seg Neutrophils # Man Monocytes # (Manual) PT INR Activated Clotting Time POC ABG pH POC ABG pCO2 POC ABG pO2 Sodium Potassium Chloride Carbon Dioxide BUN Creatinine Glucose POC Glucose 164 H 146 H 130 H Calcium Magnesium Direct Bilirubin AST ALT Alkaline Phosphatase Total Creatine Kinase CK-MB (CK-2) CK-MB (CK-2) Rel Index Troponin T C-Reactive Protein Total Protein Albumin Triglycerides Ur Specific [place] Urine WBC (Auto) 04/05/17 04/05/17 04/05/17 04:43 05:28 11:36 WBC RBC Hgb Hct MCV MCH Plt Count Lymph % (Auto) Eos % (Auto) Lymph # Seg Neutrophils % Lymphocytes % (Manual) Monocytes % (Manual) Nucleated RBC % Seg Neutrophils # Seg Neutrophils # Man Monocytes # (Manual) PT INR Activated Clotting Time POC ABG pH 7.479 H POC ABG pCO2 33.5 L POC ABG pO2 76 L Sodium Potassium Chloride Carbon Dioxide BUN Creatinine Glucose POC Glucose 145 H 136 H Calcium Magnesium Direct Bilirubin AST ALT Alkaline Phosphatase Total Creatine Kinase CK-MB (CK-2) CK-MB (CK-2) Rel Index Troponin T C-Reactive Protein Total Protein Albumin Triglycerides Ur Specific [place] Urine WBC (Auto) 04/05/17 04/06/17 04/06/17 17:58 00:16 05:26 WBC RBC Hgb Hct MCV MCH Plt Count Lymph % (Auto) Eos % (Auto) Lymph # Seg Neutrophils % Lymphocytes % (Manual) Monocytes % (Manual) Nucleated RBC % Seg Neutrophils # Seg Neutrophils # Man Monocytes # (Manual) PT INR Activated Clotting Time POC ABG pH POC ABG pCO2 POC ABG pO2 Sodium Potassium Chloride Carbon Dioxide BUN Creatinine Glucose POC Glucose 130 H 159 H 146 H Calcium Magnesium Direct Bilirubin AST ALT Alkaline Phosphatase Total Creatine Kinase CK-MB (CK-2) CK-MB (CK-2) Rel Index Troponin T C-Reactive Protein Total Protein Albumin Triglycerides Ur Specific [place] Urine WBC (Auto) 04/06/17 04/06/17 04/07/17 13:11 16:54 11:45 WBC RBC Hgb Hct MCV MCH Plt Count Lymph % (Auto) Eos % (Auto) Lymph # Seg Neutrophils % Lymphocytes % (Manual) Monocytes % (Manual) Nucleated RBC % Seg Neutrophils # Seg Neutrophils # Man Monocytes # (Manual) PT INR Activated Clotting Time POC ABG pH 7.517 H POC ABG pCO2 32.1 L POC ABG pO2 Sodium Potassium Chloride Carbon Dioxide BUN Creatinine Glucose POC Glucose 132 H 123 H Calcium Magnesium Direct Bilirubin AST ALT Alkaline Phosphatase Total Creatine Kinase CK-MB (CK-2) CK-MB (CK-2) Rel Index Troponin T C-Reactive Protein Total Protein Albumin Triglycerides Ur Specific [place] Urine WBC (Auto) 04/07/17 04/07/17 04/07/17 12:51 17:40 23:55 WBC RBC Hgb Hct MCV MCH Plt Count Lymph % (Auto) Eos % (Auto) Lymph # Seg Neutrophils % Lymphocytes % (Manual) Monocytes % (Manual) Nucleated RBC % Seg Neutrophils # Seg Neutrophils # Man Monocytes # (Manual) PT INR Activated Clotting Time POC ABG pH POC ABG pCO2 POC ABG pO2 Sodium Potassium Chloride Carbon Dioxide BUN Creatinine Glucose POC Glucose 138 H 154 H 143 H Calcium Magnesium Direct Bilirubin AST ALT Alkaline Phosphatase Total Creatine Kinase CK-MB (CK-2) CK-MB (CK-2) Rel Index Troponin T C-Reactive Protein Total Protein Albumin Triglycerides Ur Specific [place] Urine WBC (Auto) 04/08/17 04/08/17 04/08/17 05:27 11:14 17:44 WBC RBC Hgb Hct MCV MCH Plt Count Lymph % (Auto) Eos % (Auto) Lymph # Seg Neutrophils % Lymphocytes % (Manual) Monocytes % (Manual) Nucleated RBC % Seg Neutrophils # Seg Neutrophils # Man Monocytes # (Manual) PT INR Activated Clotting Time POC ABG pH POC ABG pCO2 POC ABG pO2 Sodium Potassium Chloride Carbon Dioxide BUN Creatinine Glucose POC Glucose 142 H 153 H 129 H Calcium Magnesium Direct Bilirubin AST ALT Alkaline Phosphatase Total Creatine Kinase CK-MB (CK-2) CK-MB (CK-2) Rel Index Troponin T C-Reactive Protein Total Protein Albumin Triglycerides Ur Specific [place] Urine WBC (Auto) 04/09/17 04/09/17 04/09/17 08:20 11:21 17:37 WBC RBC Hgb Hct MCV MCH Plt Count Lymph % (Auto) Eos % (Auto) Lymph # Seg Neutrophils % Lymphocytes % (Manual) Monocytes % (Manual) Nucleated RBC % Seg Neutrophils # Seg Neutrophils # Man Monocytes # (Manual) PT INR Activated Clotting Time POC ABG pH POC ABG pCO2 POC ABG pO2 Sodium 147 H Potassium Chloride 108.8 H Carbon Dioxide BUN 39 H Creatinine 0.5 L Glucose 138 H POC Glucose 152 H 109 H Calcium Magnesium Direct Bilirubin AST ALT Alkaline Phosphatase Total Creatine Kinase CK-MB (CK-2) CK-MB (CK-2) Rel Index Troponin T C-Reactive Protein Total Protein Albumin Triglycerides Ur Specific [place] Urine WBC (Auto) 04/10/17 04/10/17 04/10/17 00:13 04:16 04:16 WBC RBC Hgb 11.5 L Hct MCV 96 H MCH Plt Count 103 L Lymph % (Auto) 11.1 L Eos % (Auto) Lymph # Seg Neutrophils % 81.5 H Lymphocytes % (Manual) Monocytes % (Manual) Nucleated RBC % Seg Neutrophils # 8.8 H Seg Neutrophils # Man Monocytes # (Manual) PT INR Activated Clotting Time POC ABG pH POC ABG pCO2 POC ABG pO2 Sodium 148 H Potassium Chloride 109.0 H Carbon Dioxide BUN 36 H Creatinine 0.5 L Glucose 131 H POC Glucose 127 H Calcium 8.1 L Magnesium 2.40 H Direct Bilirubin AST 206 H ALT 228 H Alkaline Phosphatase 178 H Total Creatine Kinase CK-MB (CK-2) CK-MB (CK-2) Rel Index Troponin T C-Reactive Protein Total Protein Albumin 2.8 L Triglycerides Ur Specific [place] Urine WBC (Auto) 04/10/17 04/10/17 04/10/17 06:01 11:57 18:27 WBC RBC Hgb Hct MCV MCH Plt Count Lymph % (Auto) Eos % (Auto) Lymph # Seg Neutrophils % Lymphocytes % (Manual) Monocytes % (Manual) Nucleated RBC % Seg Neutrophils # Seg Neutrophils # Man Monocytes # (Manual) PT INR Activated Clotting Time POC ABG pH POC ABG pCO2 POC ABG pO2 Sodium Potassium Chloride Carbon Dioxide BUN Creatinine Glucose POC Glucose 108 H 154 H 130 H Calcium Magnesium Direct Bilirubin AST ALT Alkaline Phosphatase Total Creatine Kinase CK-MB (CK-2) CK-MB (CK-2) Rel Index Troponin T C-Reactive Protein Total Protein Albumin Triglycerides Ur Specific [place] Urine WBC (Auto) 04/11/17 04/11/17 04/12/17 12:25 17:10 00:22 WBC RBC Hgb Hct MCV MCH Plt Count Lymph % (Auto) Eos % (Auto) Lymph # Seg Neutrophils % Lymphocytes % (Manual) Monocytes % (Manual) Nucleated RBC % Seg Neutrophils # Seg Neutrophils # Man Monocytes # (Manual) PT INR Activated Clotting Time POC ABG pH POC ABG pCO2 POC ABG pO2 Sodium Potassium Chloride Carbon Dioxide BUN Creatinine Glucose POC Glucose 107 H 129 H 128 H Calcium Magnesium Direct Bilirubin AST ALT Alkaline Phosphatase Total Creatine Kinase CK-MB (CK-2) CK-MB (CK-2) Rel Index Troponin T C-Reactive Protein Total Protein Albumin Triglycerides Ur Specific [place] Urine WBC (Auto) 04/12/17 04/12/17 04/12/17 05:00 11:57 17:47 WBC RBC Hgb Hct MCV MCH Plt Count Lymph % (Auto) Eos % (Auto) Lymph # Seg Neutrophils % Lymphocytes % (Manual) Monocytes % (Manual) Nucleated RBC % Seg Neutrophils # Seg Neutrophils # Man Monocytes # (Manual) PT INR Activated Clotting Time POC ABG pH POC ABG pCO2 POC ABG pO2 Sodium Potassium Chloride Carbon Dioxide BUN Creatinine Glucose POC Glucose 140 H 142 H Calcium Magnesium Direct Bilirubin AST 158 H ALT 184 H Alkaline Phosphatase 170 H Total Creatine Kinase CK-MB (CK-2) CK-MB (CK-2) Rel Index Troponin T C-Reactive Protein Total Protein Albumin 2.8 L Triglycerides Ur Specific [place] Urine WBC (Auto) 04/12/17 04/12/17 04/13/17 21:36 21:36 01:37 WBC RBC Hgb Hct MCV MCH Plt Count Lymph % (Auto) Eos % (Auto) Lymph # Seg Neutrophils % Lymphocytes % (Manual) Monocytes % (Manual) Nucleated RBC % Seg Neutrophils # Seg Neutrophils # Man Monocytes # (Manual) PT INR Activated Clotting Time POC ABG pH POC ABG pCO2 POC ABG pO2 Sodium Potassium Chloride Carbon Dioxide BUN Creatinine Glucose POC Glucose 126 H Calcium Magnesium Direct Bilirubin AST ALT Alkaline Phosphatase Total Creatine Kinase 1404 H CK-MB (CK-2) 8.0 H CK-MB (CK-2) Rel Index Troponin T 0.767 H* C-Reactive Protein Total Protein Albumin Triglycerides Ur Specific [place] Urine WBC (Auto) 04/13/17 04/13/17 04/13/17 04:45 04:52 12:17 WBC RBC Hgb Hct MCV MCH Plt Count Lymph % (Auto) Eos % (Auto) Lymph # Seg Neutrophils % Lymphocytes % (Manual) Monocytes % (Manual) Nucleated RBC % Seg Neutrophils # Seg Neutrophils # Man Monocytes # (Manual) PT INR Activated Clotting Time POC ABG pH POC ABG pCO2 POC ABG pO2 Sodium 148 H Potassium Chloride 112.8 H Carbon Dioxide BUN 33 H Creatinine 0.4 L Glucose 121 H POC Glucose 126 H 149 H Calcium Magnesium Direct Bilirubin AST 160 H ALT 189 H Alkaline Phosphatase 166 H Total Creatine Kinase CK-MB (CK-2) CK-MB (CK-2) Rel Index Troponin T C-Reactive Protein Total Protein Albumin 2.6 L Triglycerides Ur Specific [place] Urine WBC (Auto) 04/13/17 04/14/17 04/14/17 17:45 00:20 00:45 WBC RBC Hgb Hct MCV MCH Plt Count Lymph % (Auto) Eos % (Auto) Lymph # Seg Neutrophils % Lymphocytes % (Manual) Monocytes % (Manual) Nucleated RBC % Seg Neutrophils # Seg Neutrophils # Man Monocytes # (Manual) PT INR Activated Clotting Time POC ABG pH POC ABG pCO2 POC ABG pO2 Sodium Potassium Chloride Carbon Dioxide BUN Creatinine Glucose POC Glucose 130 H 144 H 144 H Calcium Magnesium Direct Bilirubin AST ALT Alkaline Phosphatase Total Creatine Kinase CK-MB (CK-2) CK-MB (CK-2) Rel Index Troponin T C-Reactive Protein Total Protein Albumin Triglycerides Ur Specific [place] Urine WBC (Auto) 04/14/17 04/14/17 04/14/17 05:40 11:06 11:31 WBC RBC Hgb Hct MCV MCH Plt Count Lymph % (Auto) Eos % (Auto) Lymph # Seg Neutrophils % Lymphocytes % (Manual) Monocytes % (Manual) Nucleated RBC % Seg Neutrophils # Seg Neutrophils # Man Monocytes # (Manual) PT INR Activated Clotting Time POC ABG pH POC ABG pCO2 POC ABG pO2 Sodium Potassium Chloride Carbon Dioxide BUN Creatinine Glucose POC Glucose 139 H 123 H Calcium Magnesium Direct Bilirubin AST ALT Alkaline Phosphatase Total Creatine Kinase CK-MB (CK-2) CK-MB (CK-2) Rel Index Troponin T C-Reactive Protein Total Protein Albumin Triglycerides Ur Specific [place] 1.033 H Urine WBC (Auto) > 182.0 H 04/14/17 04/14/17 04/15/17 18:00 23:52 05:15 WBC 12.5 H RBC 3.38 L Hgb 10.6 L Hct 32.7 L MCV 97 H MCH Plt Count 107 L Lymph % (Auto) 8.7 L Eos % (Auto) Lymph # 1.1 L Seg Neutrophils % 86.1 H Lymphocytes % (Manual) Monocytes % (Manual) Nucleated RBC % Seg Neutrophils # 10.7 H Seg Neutrophils # Man Monocytes # (Manual) PT INR Activated Clotting Time POC ABG pH POC ABG pCO2 POC ABG pO2 Sodium Potassium Chloride Carbon Dioxide BUN Creatinine Glucose POC Glucose 133 H 133 H Calcium Magnesium Direct Bilirubin AST ALT Alkaline Phosphatase Total Creatine Kinase CK-MB (CK-2) CK-MB (CK-2) Rel Index Troponin T C-Reactive Protein Total Protein Albumin Triglycerides Ur Specific [place] Urine WBC (Auto) 04/15/17 04/15/17 04/15/17 05:15 05:25 11:50 WBC RBC Hgb Hct MCV MCH Plt Count Lymph % (Auto) Eos % (Auto) Lymph # Seg Neutrophils % Lymphocytes % (Manual) Monocytes % (Manual) Nucleated RBC % Seg Neutrophils # Seg Neutrophils # Man Monocytes # (Manual) PT INR Activated Clotting Time POC ABG pH POC ABG pCO2 POC ABG pO2 Sodium 149 H Potassium 3.5 L Chloride 114.1 H Carbon Dioxide 21 L BUN 29 H Creatinine 0.4 L Glucose 128 H POC Glucose 133 H 107 H Calcium 8.3 L Magnesium Direct Bilirubin 0.4 H AST 149 H ALT 182 H Alkaline Phosphatase 143 H Total Creatine Kinase CK-MB (CK-2) CK-MB (CK-2) Rel Index Troponin T C-Reactive Protein Total Protein Albumin 2.5 L Triglycerides Ur Specific [place] Urine WBC (Auto) 04/15/17 04/16/17 04/16/17 16:55 00:02 03:17 WBC RBC 3.39 L Hgb 10.5 L Hct 32.4 L MCV 96 H MCH Plt Count 106 L Lymph % (Auto) 6.7 L Eos % (Auto) Lymph # 0.6 L Seg Neutrophils % 86.8 H Lymphocytes % (Manual) Monocytes % (Manual) Nucleated RBC % Seg Neutrophils # 8.2 H Seg Neutrophils # Man Monocytes # (Manual) PT INR Activated Clotting Time POC ABG pH POC ABG pCO2 POC ABG pO2 Sodium Potassium Chloride Carbon Dioxide BUN Creatinine Glucose POC Glucose 146 H 148 H Calcium Magnesium Direct Bilirubin AST ALT Alkaline Phosphatase Total Creatine Kinase CK-MB (CK-2) CK-MB (CK-2) Rel Index Troponin T C-Reactive Protein Total Protein Albumin Triglycerides Ur Specific [place] Urine WBC (Auto) 04/16/17 04/16/17 04/16/17 03:17 05:19 11:13 WBC RBC Hgb Hct MCV MCH Plt Count Lymph % (Auto) Eos % (Auto) Lymph # Seg Neutrophils % Lymphocytes % (Manual) Monocytes % (Manual) Nucleated RBC % Seg Neutrophils # Seg Neutrophils # Man Monocytes # (Manual) PT INR Activated Clotting Time POC ABG pH POC ABG pCO2 POC ABG pO2 Sodium 149 H Potassium Chloride 111.1 H Carbon Dioxide 20 L BUN 27 H Creatinine 0.3 L Glucose 156 H POC Glucose 171 H 169 H Calcium 8.3 L Magnesium Direct Bilirubin AST ALT Alkaline Phosphatase Total Creatine Kinase CK-MB (CK-2) CK-MB (CK-2) Rel Index Troponin T C-Reactive Protein Total Protein Albumin Triglycerides Ur Specific [place] Urine WBC (Auto) 04/16/17 04/17/17 04/17/17 17:03 00:00 05:09 WBC RBC Hgb Hct MCV MCH Plt Count Lymph % (Auto) Eos % (Auto) Lymph # Seg Neutrophils % Lymphocytes % (Manual) Monocytes % (Manual) Nucleated RBC % Seg Neutrophils # Seg Neutrophils # Man Monocytes # (Manual) PT INR Activated Clotting Time POC ABG pH POC ABG pCO2 POC ABG pO2 Sodium Potassium Chloride Carbon Dioxide BUN Creatinine Glucose POC Glucose 151 H 165 H 145 H Calcium Magnesium Direct Bilirubin AST ALT Alkaline Phosphatase Total Creatine Kinase CK-MB (CK-2) CK-MB (CK-2) Rel Index Troponin T C-Reactive Protein Total Protein Albumin Triglycerides Ur Specific [place] Urine WBC (Auto) 04/17/17 04/17/17 04/18/17 11:38 17:47 00:01 WBC RBC Hgb Hct MCV MCH Plt Count Lymph % (Auto) Eos % (Auto) Lymph # Seg Neutrophils % Lymphocytes % (Manual) Monocytes % (Manual) Nucleated RBC % Seg Neutrophils # Seg Neutrophils # Man Monocytes # (Manual) PT INR Activated Clotting Time POC ABG pH POC ABG pCO2 POC ABG pO2 Sodium Potassium Chloride Carbon Dioxide BUN Creatinine Glucose POC Glucose 170 H 161 H 131 H Calcium Magnesium Direct Bilirubin AST ALT Alkaline Phosphatase Total Creatine Kinase CK-MB (CK-2) CK-MB (CK-2) Rel Index Troponin T C-Reactive Protein Total Protein Albumin Triglycerides Ur Specific [place] Urine WBC (Auto) 04/18/17 04/18/17 04/18/17 03:55 03:55 05:30 WBC RBC 3.05 L Hgb 9.8 L Hct 29.0 L MCV 95 H MCH Plt Count 113 L Lymph % (Auto) Eos % (Auto) 5.3 H Lymph # Seg Neutrophils % 71.5 H Lymphocytes % (Manual) Monocytes % (Manual) Nucleated RBC % Seg Neutrophils # Seg Neutrophils # Man Monocytes # (Manual) PT INR Activated Clotting Time POC ABG pH 7.460 H POC ABG pCO2 30.8 L POC ABG pO2 129 H Sodium Potassium Chloride Carbon Dioxide 21 L BUN 25 H Creatinine 0.4 L Glucose 123 H POC Glucose Calcium 8.3 L Magnesium Direct Bilirubin AST ALT Alkaline Phosphatase Total Creatine Kinase CK-MB (CK-2) CK-MB (CK-2) Rel Index Troponin T C-Reactive Protein Total Protein Albumin Triglycerides Ur Specific [place] Urine WBC (Auto) Chest x-ray: report reviewed, image reviewed
[2017-04-19 05:08] LABS: Basophils # (Auto) 0.2 K/mm3 (0.0-0.1); Basophils % (Auto) 2.4 % (0.0-1.8); Eosinophils # (Auto) 0.3 K/mm3 (0.0-0.4); Eosinophils % (Auto) 4.7 % (0.0-4.3); Hematocrit 30.4 % (35.5-45.6); Hemoglobin 10.2 gm/dl (11.8-15.2); Lymphocytes # (Auto) 0.9 K/mm3 (1.2-5.4); Lymphocytes % (Auto) 12.1 % (13.4-35.0); Mean Corpuscular HGB Conc 33 % (32-34); Mean Corpuscular Hemoglobin 32 pg (28-32); Mean Corpuscular Volume 95 fl (84-94); Monocytes # (Auto) 0.4 K/mm3 (0.0-0.8); Monocytes % (Auto) 5.8 % (0.0-7.3); Platelet Count 131 K/mm3 (140-440); Red Blood Count 3.21 M/mm3 (3.65-5.03); Red Cell Distribution Width 14.1 % (13.2-15.2)
[2017-04-19] MEDS: LOPRESSOR PO SCH ×5 (05:16→19:57)
[2017-04-19] MEDS: NITRO DUR TD SCH (05:16)
[2017-04-19 05:24] LABS: BUN/Creatinine Ratio 115; Blood Urea Nitrogen 23 mg/dL (9-20); Calcium 7.9 mg/dL (8.4-10.2); Hemolysis Index 2
[2017-04-19] MEDS: cefTRIAXone 1 GM in NACL 0.9% 20 ML IV SCH (09:29)
[2017-04-19] MEDS: PLAVIX PO SCH (09:30)
[2017-04-19] MEDS: ASPIRIN PO SCH (09:30)
[2017-04-19] MEDS: ZESTRIL PO SCH (09:30)
[2017-04-19] MEDS: PROTONIX FEEDTUBE SCH (09:30)
[2017-04-19] MEDS: HEPARIN SUB-Q SCH ×2 (09:31→21:59)
[2017-04-19] MEDS: COLACE FEEDTUBE SCH ×2 (09:31→21:58)
--- NOTE | 2017-04-19 11:37 | Progress Note ---
Assessment and Plan Out of hospital VF arrest Acute anterior STEMI s/p PCI of the LAD using BM stents deployed. reduced LVEF 30-35% by echocardiogram. DAPT resumed Respiratory failure on the vent via trach Anoxic brain injury Pneumonia: MRSA UTI and fever Elevated Transaminitis amiodarone and statins discontinued Conservative cardiac management Subjective Date of service: 04/19/17 Principal diagnosis: septic shock Interval history: Patient remains intubated, unresponsive on the vent. Objective Vital Signs Temp Pulse Pulse Resp BP Pulse Ox Pulse Ox 04/19/17 09:30 100 H 103/59 04/19/17 08:20 99 04/19/17 08:05 101 H 31 H 97 04/19/17 08:00 99.9 F H 100 H 32 H 98/58 96 04/19/17 07:00 95 H 31 H 101/60 04/19/17 06:01 103 H 34 H 104/72 86 04/19/17 05:16 97 H 99/57 04/19/17 05:00 97 H 30 H 99/57 98 04/19/17 04:00 94 H 32 H 92/50 04/19/17 03:35 96 H 99/63 97 04/19/17 03:30 99.9 F H 04/19/17 03:00 97 H 24 99/63 04/19/17 02:00 90 30 H 94/56 97 04/19/17 01:30 93 H 27 H 89/49 97 04/19/17 01:00 94 H 29 H 95/54 95 04/19/17 00:30 94 H 31 H 96/58 96 04/19/17 00:00 96 H 30 H 94/51 96 04/18/17 23:21 93 H 31 H 94/56 99 04/18/17 23:17 100 F H 04/18/17 23:00 93 H 32 H 94/56 97 04/18/17 22:00 97 H 29 H 96/56 97 04/18/17 21:12 100 H 04/18/17 21:00 98 H 26 H 98/56 97 04/18/17 20:24 102 H 102/59 97 04/18/17 20:00 99.9 F H 100 H 31 H 106/62 95 04/18/17 19:00 97 H 27 H 100/49 93 04/18/17 18:00 92 H 29 H 100/61 01/23/18 17:00 97 H 33 H 100/59 96 04/18/17 16:00 99.7 F H 96 H 27 H 94/46 90 04/18/17 15:20 97 H 26 H 92 04/18/17 15:00 99 H 36 H 111/68 98 04/18/17 14:00 95 H 27 H 92/54 98 04/18/17 13:00 89 27 H 94/54 97 04/18/17 12:58 90 93/53 04/18/17 12:00 90 86 25 H 98/58 98 - Physical Examination General: Other (unresponsive on the vent) Cardiac: Positive: Reg Rate and Rhythm - Labs and Meds CBC 04/19/17 Range/Units 04:36 WBC 7.3 (4.5-11.0) K/mm3 RBC 3.21 L (3.65-5.03) M/mm3 Hgb 10.2 L (11.8-15.2) gm/dl Hct 30.4 L (35.5-45.6) % Plt Count 131 L (140-440) K/mm3 Lymph # 0.9 L (1.2-5.4) K/mm3 [place] # 0.4 (0.0-0.8) K/mm3 Eos # 0.3 (0.0-0.4) K/mm3 Baso # 0.2 H (0.0-0.1) K/mm3 Comprehensive Metabolic Panel 04/19/17 Range/Units 04:36 Sodium 140 (137-145) mmol/L Potassium 3.7 (3.6-5.0) mmol/L Chloride 104.1 (98-107) mmol/L Carbon Dioxide 21 L (22-30) mmol/L BUN 23 H (9-20) mg/dL Creatinine 0.2 L (0.8-1.5) mg/dL Glucose 137 H (75-100) mg/dL Calcium 7.9 L (8.4-10.2) mg/dL
--- NOTE | 2017-04-19 14:08 | Progress Note ---
Assessment and Plan Assessment and plan: 46 YO Male with No PMH was admitted through emergency room with history of V. fib cardiac arrest status post CPR per ACLS protocol, acute respiratory failure vent dependent , had tracheostomy and PEG placement, awaiting LTAC evaluation and placement --Status post cardiac arrest: Status post CPR, unresponsive, supportive care --Anoxic brain injury; unresponsive, Poor prognosis, s/p trach and PEG --Acute hypoxic respiratory failure;s/p tracheostomy on vent , continue supportive care --Acute anterior STEMI ; status post PCI , continue current cardiac medications Cardiology following , --Hypertension ; closely monitor , continue current antihypertensives and when necessary medications --MRSA pneumonia /aspiration pneumonia , contact isolation, ID following, completed zyvox on 04/10 --Cardiogenic shock; resolved, off pressors --Hypokalemia /hypernatremia, Corrected --Tracheostomy care, PEG feeds --DVT prophylaxis; heparin --Full CODE STATUS --DC planning. Case management , multiple social issues Possible SNF versus rehabilitation versus LTAC Patient has no payer source medicare disability application in process of being filled out by family Critical care time 31 minutes The high probability of a clinically significant, sudden or life threatening deterioration of the [Pulmonary, cardiac, renal] system(s) required my full and direct attention, intervention and personal management. The aggregate critical care time was [31] minutes. This time is in addition to time spent performing reported procedures but includes the following: [x] Data Review and interpretation [x] Patient assessment and monitoring of vital signs [x] Documentation [x] Medication orders and management History Interval history: Patient seen and evaluated medical records reviewed No new events reported by nursing staff Patient has mild tachycardia Status post tracheostomy on vent Vital signs reviewed Hospitalist Physical - Constitutional Vitals: Temp Pulse Resp BP Pulse Ox 100.1 F H 100 H 26 H 100/63 96 04/19/17 12:00 04/19/17 13:00 04/19/17 13:00 04/19/17 13:00 04/19/17 12:26 General appearance: Present: no acute distress, well-nourished, other ( tracheostomy on ventilatory support) - EENT Eyes: Present: PERRL, EOM intact - Neck Neck: Present: supple - Respiratory Respiratory effort: normal Respiratory: bilateral: diminished, rhonchi, negative: rales, wheezing - Cardiovascular Rhythm: regular Heart Sounds: Present: S1 & S2 - Extremities Extremities: no ischemia, No edema - Abdominal General gastrointestinal: soft, non-tender, non-distended, normal bowel sounds - Integumentary Integumentary: Present: clear, warm - Psychiatric Psychiatric: other (unresponsive) - Neurologic Neurologic: other (unresponsive) Results - Labs CBC & Chem 7: 04/19/17 04:36 04/19/17 04:36 Labs: Laboratory Last Values WBC 7.3 K/mm3 (4.5-11.0) 04/19/17 04:36 RBC 3.21 M/mm3 (3.65-5.03) L 04/19/17 04:36 Hgb 10.2 gm/dl (11.8-15.2) L 04/19/17 04:36 Hct 30.4 % (35.5-45.6) L 04/19/17 04:36 MCV 95 fl (84-94) H 04/19/17 04:36 MCH 32 pg (28-32) 04/19/17 04:36 MCHC 33 % (32-34) 04/19/17 04:36 RDW 14.1 % (13.2-15.2) 04/19/17 04:36 Plt Count 131 K/mm3 (140-440) L 04/19/17 04:36 Lymph % (Auto) 12.1 % (13.4-35.0) L 04/19/17 04:36 [place] % (Auto) 5.8 % (0.0-7.3) 04/19/17 04:36 Eos % (Auto) 4.7 % (0.0-4.3) H 04/19/17 04:36 Baso % (Auto) 2.4 % (0.0-1.8) H 04/19/17 04:36 Lymph # 0.9 K/mm3 (1.2-5.4) L 04/19/17 04:36 [place] # 0.4 K/mm3 (0.0-0.8) 04/19/17 04:36 Eos # 0.3 K/mm3 (0.0-0.4) 04/19/17 04:36 Baso # 0.2 K/mm3 (0.0-0.1) H 04/19/17 04:36 Add Manual Diff Complete 03/30/17 03:50 Total Counted 100 03/30/17 03:50 Seg Neutrophils % 75.0 % (40.0-70.0) H 04/19/17 04:36 Seg Neuts % (Manual) 65.0 % (40.0-70.0) 03/30/17 03:50 Band Neutrophils % 17.0 % 03/30/17 03:50 Lymphocytes % (Manual) 7.0 % (13.4-35.0) L 03/30/17 03:50 Reactive Lymphs % (Man) 0 % 03/30/17 03:50 Monocytes % (Manual) 7.0 % (0.0-7.3) 03/30/17 03:50 Eosinophils % (Manual) 0 % (0.0-4.3) 03/30/17 03:50 Basophils % (Manual) 0 % (0.0-1.8) 03/30/17 03:50 Metamyelocytes % 4.0 % 03/30/17 03:50 Myelocytes % 0 % 03/30/17 03:50 Promyelocytes % 0 % 03/30/17 03:50 Blast Cells % 0 % 03/30/17 03:50 Nucleated RBC % Not Reportable 03/30/17 03:50 Seg Neutrophils # 5.5 K/mm3 (1.8-7.7) 04/19/17 04:36 Seg Neutrophils # Man 12.7 K/mm3 (1.8-7.7) H 03/30/17 03:50 Band Neutrophils # 3.3 K/mm3 03/30/17 03:50 Lymphocytes # (Manual) 1.4 K/mm3 (1.2-5.4) 03/30/17 03:50 Abs React Lymphs (Man) 0.0 K/mm3 03/30/17 03:50 Monocytes # (Manual) 1.4 K/mm3 (0.0-0.8) H 03/30/17 03:50 Eosinophils # (Manual) 0.0 K/mm3 (0.0-0.4) 03/30/17 03:50 Basophils # (Manual) 0.0 K/mm3 (0.0-0.1) 03/30/17 03:50 Metamyelocytes # 0.8 K/mm3 03/30/17 03:50 Myelocytes # 0.0 K/mm3 03/30/17 03:50 Promyelocytes # 0.0 K/mm3 03/30/17 03:50 Blast Cells # 0.0 K/mm3 03/30/17 03:50 WBC Morphology Not Reportable 03/30/17 03:50 Hypersegmented Neuts Not Reportable 03/30/17 03:50 Hyposegmented Neuts Not Reportable 03/30/17 03:50 Hypogranular Neuts Not Reportable 03/30/17 03:50 Smudge Cells Not Reportable 03/30/17 03:50 Toxic Granulation Not Reportable 03/30/17 03:50 Toxic Vacuolation Not Reportable 03/30/17 03:50 Dohle Bodies Not Reportable 03/30/17 03:50 Pelger-Huet Anomaly Not Reportable 03/30/17 03:50 Sherry Rods Not Reportable 03/30/17 03:50 Platelet Estimate Appears normal 03/30/17 03:50 Clumped Platelets Not Reportable 03/30/17 03:50 Plt Clumps, EDTA Not Reportable 03/30/17 03:50 Large Platelets Not Reportable 03/30/17 03:50 Giant Platelets Not Reportable 03/30/17 03:50 Platelet Satelliting Not Reportable 03/30/17 03:50 Plt Morphology Comment Not Reportable 03/30/17 03:50 RBC Morphology Not Reportable 03/30/17 03:50 Dimorphic RBCs Not Reportable 03/30/17 03:50 Polychromasia Not Reportable 03/30/17 03:50 Hypochromasia Not Reportable 03/30/17 03:50 Poikilocytosis Not Reportable 03/30/17 03:50 Anisocytosis Few 03/30/17 03:50 Microcytosis Not Reportable 03/30/17 03:50 Macrocytosis Not Reportable 03/30/17 03:50 Spherocytes Not Reportable 03/30/17 03:50 Pappenheimer Bodies Not Reportable 03/30/17 03:50 Sickle Cells Not Reportable 03/30/17 03:50 Target Cells Not Reportable 03/30/17 03:50 Tear Drop Cells Not Reportable 03/30/17 03:50 Ovalocytes Not Reportable 03/30/17 03:50 Helmet Cells Not Reportable 03/30/17 03:50 Tamayo-Nambe Bodies Not Reportable 03/30/17 03:50 [place] Rings Not Reportable 03/30/17 03:50 Nusrat Cells Not Reportable 03/30/17 03:50 Bite Cells Not Reportable 03/30/17 03:50 Crenated Cell Not Reportable 03/30/17 03:50 Elliptocytes Not Reportable 03/30/17 03:50 Acanthocytes (Spur) Not Reportable 03/30/17 03:50 Rouleaux Not Reportable 03/30/17 03:50 Hemoglobin C Crystals Not Reportable 03/30/17 03:50 Schistocytes Not Reportable 03/30/17 03:50 Malaria parasites Not Reportable 03/30/17 03:50 Jermaine Bodies Not Reportable 03/30/17 03:50 Hem Pathologist Commnt No 03/30/17 03:50 PT 14.9 Sec. (12.2-14.9) 04/10/17 04:16 INR 1.11 (0.87-1.13) 04/10/17 04:16 APTT 27.8 Sec. (24.2-36.6) 04/10/17 04:16 Activated Clotting Time 92 (74-137) 03/29/17 17:47 POC ABG pH 7.516 (7.35-7.45) H 04/19/17 06:50 POC ABG pCO2 28.0 (35-45) L 04/19/17 06:50 POC ABG pO2 81 (80-105) 04/19/17 06:50 POC ABG HCO3 22.7 04/19/17 06:50 POC ABG Total CO2 24 04/19/17 06:50 POC ABG O2 Sat 97 04/19/17 06:50 POC ABG Base Excess 0 04/19/17 06:50 FiO2 30 % 04/19/17 06:50 Sodium 140 mmol/L (137-145) 04/19/17 04:36 Potassium 3.7 mmol/L (3.6-5.0) 04/19/17 04:36 Chloride 104.1 mmol/L (98-107) 04/19/17 04:36 Carbon Dioxide 21 mmol/L (22-30) L 04/19/17 04:36 Anion Gap 19 mmol/L 04/19/17 04:36 BUN 23 mg/dL (9-20) H 04/19/17 04:36 Creatinine 0.2 mg/dL (0.8-1.5) L 04/19/17 04:36 Estimated GFR > 60 ml/min 04/19/17 04:36 BUN/Creatinine Ratio 115 % 04/19/17 04:36 Glucose 137 mg/dL (75-100) H 04/19/17 04:36 POC Glucose 131 (70-105) H 04/19/17 05:12 Calcium 7.9 mg/dL (8.4-10.2) L 04/19/17 04:36 Phosphorus 3.50 mg/dL (2.5-4.5) 04/13/17 04:45 Magnesium 1.90 mg/dL (1.7-2.3) 04/18/17 03:55 Total Bilirubin 1.00 mg/dL (0.1-1.2) 04/15/17 05:15 Direct Bilirubin 0.4 mg/dL (0-0.2) H 04/15/17 05:15 Indirect Bilirubin 0.6 mg/dL 04/15/17 05:15 AST 149 units/L (5-40) H 04/15/17 05:15 ALT 182 units/L (7-56) H 04/15/17 05:15 Alkaline Phosphatase 143 units/L (35-129) H 04/15/17 05:15 Total Creatine Kinase 1404 units/L (55-170) H 04/12/17 21:36 CK-MB (CK-2) 8.0 ng/mL (0.0-4.0) H 04/12/17 21:36 CK-MB (CK-2) Rel Index 0.5 (0-4) 04/12/17 21:36 Troponin T 0.767 ng/mL (0.00-0.029) H* 04/12/17 21:36 C-Reactive Protein 21.80 mg/dL (0.00-1.30) H 03/30/17 16:04 Total Protein 6.4 g/dL (6.3-8.2) 04/15/17 05:15 Albumin 2.5 g/dL (3.9-5) L 04/15/17 05:15 Albumin/Globulin Ratio 0.6 % 04/15/17 05:15 Triglycerides 151 mg/dL (2-149) H 04/01/17 04:29 Cholesterol 164 mg/dL (50-199) 03/29/17 19:52 LDL Cholesterol Direct 81 mg/dL (50-130) 03/29/17 19:52 HDL Cholesterol 44 mg/dL (40-59) 03/29/17 19:52 Cholesterol/HDL Ratio 3.72 % 03/29/17 19:52 Urine Color [place] (Yellow) 04/14/17 11:06 Urine Turbidity Slightly-cloudy (Clear) 04/14/17 11:06 Urine pH 5.0 (5.0-7.0) 04/14/17 11:06 Ur Specific [place] 1.033 (1.003-1.030) H 04/14/17 11:06 Urine Protein 100 mg/dl mg/dL (Negative) 04/14/17 11:06 Urine Glucose (UA) Neg mg/dL (Negative) 04/14/17 11:06 Urine Ketones Neg mg/dL (Negative) 04/14/17 11:06 Urine Blood Lg (Negative) 04/14/17 11:06 Urine Nitrite Pos (Negative) 04/14/17 11:06 Urine Bilirubin Neg (Negative) 04/14/17 11:06 Urine Urobilinogen 4.0 mg/dL (<2.0) 04/14/17 11:06 Ur Leukocyte Esterase Mod (Negative) 04/14/17 11:06 Urine WBC (Auto) > 182.0 /HPF (0.0-6.0) H 04/14/17 11:06 Urine RBC (Auto) > 182.0 /HPF (0.0-6.0) 04/14/17 11:06 Amorphous Crystals 1+ 03/30/17 09:45 Urine Mucus Few /HPF 04/14/17 11:06 Urine Opiates Screen Presumptive negative 03/30/17 09:45 Urine Methadone Screen Presumptive negative 03/30/17 09:45 Ur Barbiturates Screen Presumptive negative 03/30/17 09:45 Ur Phencyclidine Scrn Presumptive negative 03/30/17 09:45 Ur Amphetamines Screen Presumptive positive 03/30/17 09:45 U Benzodiazepines Scrn Presumptive positive 03/30/17 09:45 Urine Cocaine Screen Presumptive negative 03/30/17 09:45 U Marijuana (THC) Screen Presumptive negative 03/30/17 09:45 Drugs of Abuse Note Disclamer 03/30/17 09:45 Blood Type O POSITIVE 03/29/17 11:35 Antibody Screen Negative 03/29/17 11:35
--- NOTE | 2017-04-19 14:12 | XRay Report ---
AP CHEST: HISTORY: Short of breath Patchy bilateral perihilar infiltrates have developed since 04/16/17. This probably represents pulmonary edema. Fever is present, pneumonia could be considered. No pleural effusion or pneumothorax is identified. Heart size is within normal limits. The tracheostomy and right arm PICC remain in good position. IMPRESSION: Bilateral perihilar infiltrates most consistent with pulmonary edema.
[2017-04-19] MEDS ORDERED: LASIX IV ONE (14:13)
--- NOTE | 2017-04-19 14:17 | Progress Note ---
Assessment and Plan Imp: 1. s/p CP arrest 2. Anoxic enceph. 3. Acute respiratory failure, hypoxia 4. s/p Trach/PEG 5. Hypernatremia 6. STEMI/ICMP 7. UTI Rec: 1. CXR shows worsening CHF and he is more tachypneic; will give Lasix 20mg IV once and repeat labs in AM 2. Rocephin vs. E.coli & monitor temp curve; recheck sputum culture and if negative, consider Scopolamine patch 3. Daily PSV if able 4. Plavix 5. TFs, DVT/GI PPx 6. Stop NTG patch; holding VICENTA and BB due to borderline low BP 7. Dismal prognosis and bad outcome is expected; no family present; complex patient Subjective Date of service: 04/19/17 Principal diagnosis: septic shock Interval history: No events. Unresponsive. + Copious secretions from ET tube and orally/nasally. More tachypneic today in the 30s on ACVC so PSV not attempted. Active Medications Acetaminophen (Tylenol) 1,000 mg PO Q6H PRN PRN Reason: Fever >101 Last Admin: 04/17/17 09:58 Dose: 1,000 mg Albuterol (Proventil) 2.5 mg IH Q3HRT PRN PRN Reason: Shortness Of Breath Last Admin: 04/13/17 21:25 Dose: 2.5 mg Lipase/Protease/Amylase (Pancreaze Dr 10,500 Unit) 1 each FEEDTUBE PRN PRN PRN Reason: For Clogged Feeding Tube Aspirin (Aspirin) 325 mg PO QDAY [facility] Last Admin: 04/19/17 09:30 Dose: 325 mg Clopidogrel Bisulfate (Plavix) 75 mg PO QDAY [facility] Last Admin: 04/19/17 09:30 Dose: 75 mg Dextrose (D50w (25gm) Syringe) 50 ml IV PRN PRN PRN Reason: Hypoglycemia Docusate Sodium (Colace) 100 mg FEEDTUBE BID [facility] Last Admin: 04/19/17 09:31 Dose: 100 mg Furosemide (Lasix) 20 mg IV ONCE ONE Stop: 04/19/17 14:14 Heparin Sodium (Porcine) (Heparin) 5,000 unit SUB-Q Q12HR [facility] Last Admin: 04/19/17 09:31 Dose: 5,000 unit Hydrophilic Ointment (Vaseline Lip Therapy) 1 applic TP Q2HR PRN PRN Reason: Dry Lips Last Admin: 03/31/17 22:50 Dose: 1 applic Ceftriaxone Sodium 1 gm/ (Sodium Chloride) 20 mls @ 20 mls/10 min IV Q24HR [facility] Stop: 04/22/17 12:00 Last Admin: 04/19/17 09:29 Dose: 20 mls/10 min Lisinopril (Zestril) 2.5 mg PO QDAY [facility] Last Admin: 04/19/17 09:30 Dose: Not Given Metoprolol Tartrate (Lopressor) 2.5 mg IV Q4HR PRN PRN Reason: HR>130 Last Admin: 04/09/17 19:41 Dose: 2.5 mg Metoprolol Tartrate (Lopressor) 50 mg PO Q6HR [facility] Last Admin: 04/19/17 12:30 Dose: Not Given Multi-Ingred Cream/Lotion/Oil/Oint (Artificial Tears Ophth Oint) 1 applic OU Q4HR PRN PRN Reason: Dry Eye(s) Last Admin: 03/31/17 22:51 Dose: 1 applic Pantoprazole (Protonix) 40 mg FEEDTUBE DAILY [facility] Last Admin: 04/19/17 09:30 Dose: 40 mg Simple Syrup (Simple Syrup) 15 ml FEEDTUBE PRN PRN PRN Reason: Hypoglycemia Simple Syrup (Simple Syrup) 30 ml FEEDTUBE PRN PRN PRN Reason: Hypoglycemia Sodium Bicarbonate (Sodium Bicarbonate) 325 mg FEEDTUBE PRN PRN PRN Reason: For Clogged Feeding Tube Objective Vital Signs - 12hr 04/19/17 04/19/17 04/19/17 03:00 03:30 03:35 Temperature 99.9 F H Pulse Rate 97 H 96 H Pulse Rate [ From Monitor] Respiratory 24 Rate Blood Pressure 99/63 99/63 O2 Sat by Pulse 97 Oximetry O2 Sat by Pulse Oximetry [ Assessment] 04/19/17 04/19/17 04/19/17 04:00 05:00 05:16 Temperature Pulse Rate 94 H 97 H 97 H Pulse Rate [ From Monitor] Respiratory 32 H 30 H Rate Blood Pressure 92/50 99/57 99/57 O2 Sat by Pulse 98 Oximetry O2 Sat by Pulse Oximetry [ Assessment] 04/19/17 04/19/17 04/19/17 06:01 07:00 08:00 Temperature 99.9 F H Pulse Rate 103 H 95 H 100 H Pulse Rate [ From Monitor] Respiratory 34 H 31 H 32 H Rate Blood Pressure 104/72 101/60 98/58 O2 Sat by Pulse 86 96 Oximetry O2 Sat by Pulse Oximetry [ Assessment] 04/19/17 04/19/17 04/19/17 08:05 08:20 09:00 Temperature Pulse Rate 99 H Pulse Rate [ 101 H From Monitor] Respiratory 31 H 35 H Rate Blood Pressure 103/59 O2 Sat by Pulse 97 Oximetry O2 Sat by Pulse 99 Oximetry [ Assessment] 04/19/17 04/19/17 04/19/17 09:30 10:00 11:00 Temperature Pulse Rate 100 H 98 H 101 H Pulse Rate [ From Monitor] Respiratory 35 H 35 H Rate Blood Pressure 103/59 98/56 101/62 O2 Sat by Pulse 96 98 Oximetry O2 Sat by Pulse Oximetry [ Assessment] 04/19/17 04/19/17 04/19/17 12:00 12:26 12:30 Temperature 100.1 F H Pulse Rate 104 H 104 H Pulse Rate [ From Monitor] Respiratory 39 H Rate Blood Pressure 102/65 103/67 O2 Sat by Pulse 95 Oximetry O2 Sat by Pulse 96 Oximetry [ Assessment] 04/19/17 04/19/17 04/19/17 12:35 13:00 14:00 Temperature Pulse Rate 100 H 105 H Pulse Rate [ 104 H From Monitor] Respiratory 36 H 26 H 32 H Rate Blood Pressure 100/63 105/69 O2 Sat by Pulse 99 95 Oximetry O2 Sat by Pulse Oximetry [ Assessment] Constitutional: comatose Eyes: non-icteric ENT: oropharynx moist Neck: supple Effort: mildly labored (tachynpeic) Ascultation: Bilateral: other (coarse BS bilaterally) Percussion: Bilateral: not dull Cardiovascular: regular rate and rhythm (no mrg) Gastrointestinal: normoactive bowel sounds, soft, non-tender, non-distended, other (mild distention) Integumentary: normal, other (multiple tattoos) Extremities: no cyanosis, no edema, pink and warm Neurologic: other (comatose, flaccid extremities, good cough w/ suction) Psychiatric: other (unable to assess) CBC and BMP: 04/19/17 04:36 04/19/17 04:36 ABG, PT/INR, D-dimer: ABG POC ABG pH 7.516 (7.35-7.45) H 04/19/17 06:50 POC ABG pCO2 28.0 (35-45) L 04/19/17 06:50 POC ABG pO2 81 (80-105) 04/19/17 06:50 POC ABG HCO3 22.7 04/19/17 06:50 POC ABG Total CO2 24 04/19/17 06:50 POC ABG O2 Sat 97 04/19/17 06:50 PT/INR, D-dimer PT 14.9 Sec. (12.2-14.9) 04/10/17 04:16 INR 1.11 (0.87-1.13) 04/10/17 04:16 Abnormal lab findings: Abnormal Labs 03/29/17 03/29/17 03/29/17 11:35 11:35 11:40 WBC RBC Hgb Hct MCV 98 H MCH 33 H Plt Count Lymph % (Auto) Eos % (Auto) Baso % (Auto) Lymph # Baso # Seg Neutrophils % Lymphocytes % (Manual) Monocytes % (Manual) 9.0 H Nucleated RBC % 1.0 H Seg Neutrophils # Seg Neutrophils # Man Monocytes # (Manual) 0.9 H PT 15.8 H INR 1.20 H Activated Clotting Time POC ABG pH POC ABG pCO2 POC ABG pO2 Sodium Potassium 2.7 L* Chloride 95.3 L Carbon Dioxide 17 L BUN Creatinine Glucose 435 H POC Glucose Calcium Magnesium Direct Bilirubin AST ALT Alkaline Phosphatase Total Creatine Kinase CK-MB (CK-2) CK-MB (CK-2) Rel Index Troponin T C-Reactive Protein Total Protein 6.1 L Albumin 3.5 L Triglycerides Ur Specific [place] Urine WBC (Auto) 03/29/17 03/29/17 03/29/17 12:34 13:10 13:25 WBC RBC Hgb Hct MCV MCH Plt Count Lymph % (Auto) Eos % (Auto) Baso % (Auto) Lymph # Baso # Seg Neutrophils % Lymphocytes % (Manual) Monocytes % (Manual) Nucleated RBC % Seg Neutrophils # Seg Neutrophils # Man Monocytes # (Manual) PT INR Activated Clotting Time 142 H 169 H 175 H POC ABG pH POC ABG pCO2 POC ABG pO2 Sodium Potassium Chloride Carbon Dioxide BUN Creatinine Glucose POC Glucose Calcium Magnesium Direct Bilirubin AST ALT Alkaline Phosphatase Total Creatine Kinase CK-MB (CK-2) CK-MB (CK-2) Rel Index Troponin T C-Reactive Protein Total Protein Albumin Triglycerides Ur Specific [place] Urine WBC (Auto) 03/29/17 03/29/17 03/29/17 14:50 15:18 19:52 WBC RBC Hgb Hct MCV MCH Plt Count Lymph % (Auto) Eos % (Auto) Baso % (Auto) Lymph # Baso # Seg Neutrophils % Lymphocytes % (Manual) Monocytes % (Manual) Nucleated RBC % Seg Neutrophils # Seg Neutrophils # Man Monocytes # (Manual) PT INR Activated Clotting Time 175 H POC ABG pH 7.293 L POC ABG pCO2 POC ABG pO2 602 H Sodium Potassium Chloride Carbon Dioxide BUN Creatinine Glucose POC Glucose Calcium Magnesium Direct Bilirubin AST ALT Alkaline Phosphatase Total Creatine Kinase 7263 H CK-MB (CK-2) > 300.0 H CK-MB (CK-2) Rel Index 4.1 H Troponin T 8.080 H* D C-Reactive Protein Total Protein Albumin Triglycerides 195 H Ur Specific [place] Urine WBC (Auto) 03/30/17 03/30/17 03/30/17 03:50 03:50 06:19 WBC 19.5 H RBC Hgb Hct MCV MCH Plt Count Lymph % (Auto) Eos % (Auto) Baso % (Auto) Lymph # Baso # Seg Neutrophils % Lymphocytes % (Manual) 7.0 L Monocytes % (Manual) Nucleated RBC % Seg Neutrophils # Seg Neutrophils # Man 12.7 H Monocytes # (Manual) 1.4 H PT INR Activated Clotting Time POC ABG pH POC ABG pCO2 28.2 L POC ABG pO2 108 H Sodium Potassium Chloride 108.9 H Carbon Dioxide 15 L BUN 25 H Creatinine Glucose 158 H POC Glucose Calcium 8.1 L Magnesium Direct Bilirubin AST ALT Alkaline Phosphatase Total Creatine Kinase 7963 H CK-MB (CK-2) > 300.0 H CK-MB (CK-2) Rel Index Troponin T 6.850 H* C-Reactive Protein Total Protein Albumin Triglycerides Ur Specific [place] Urine WBC (Auto) 03/30/17 03/30/17 03/31/17 09:45 16:04 02:19 WBC RBC Hgb Hct MCV MCH Plt Count Lymph % (Auto) Eos % (Auto) Baso % (Auto) Lymph # Baso # Seg Neutrophils % Lymphocytes % (Manual) Monocytes % (Manual) Nucleated RBC % Seg Neutrophils # Seg Neutrophils # Man Monocytes # (Manual) PT INR Activated Clotting Time POC ABG pH POC ABG pCO2 POC ABG pO2 Sodium Potassium Chloride Carbon Dioxide BUN Creatinine Glucose POC Glucose 137 H Calcium Magnesium Direct Bilirubin AST ALT Alkaline Phosphatase Total Creatine Kinase CK-MB (CK-2) CK-MB (CK-2) Rel Index Troponin T C-Reactive Protein 21.80 H Total Protein Albumin Triglycerides Ur Specific [place] 1.031 H Urine WBC (Auto) 03/31/17 03/31/17 03/31/17 03:57 06:54 09:22 WBC RBC Hgb Hct MCV MCH Plt Count Lymph % (Auto) Eos % (Auto) Baso % (Auto) Lymph # Baso # Seg Neutrophils % Lymphocytes % (Manual) Monocytes % (Manual) Nucleated RBC % Seg Neutrophils # Seg Neutrophils # Man Monocytes # (Manual) PT INR Activated Clotting Time POC ABG pH 7.475 H POC ABG pCO2 25.4 L POC ABG pO2 62 L Sodium Potassium Chloride Carbon Dioxide 19 L BUN 22 H Creatinine 0.6 L Glucose 148 H POC Glucose 143 H Calcium 8.3 L Magnesium Direct Bilirubin AST ALT Alkaline Phosphatase Total Creatine Kinase CK-MB (CK-2) CK-MB (CK-2) Rel Index Troponin T C-Reactive Protein Total Protein Albumin Triglycerides Ur Specific [place] Urine WBC (Auto) 03/31/17 03/31/17 03/31/17 11:40 17:47 23:38 WBC RBC Hgb Hct MCV MCH Plt Count Lymph % (Auto) Eos % (Auto) Baso % (Auto) Lymph # Baso # Seg Neutrophils % Lymphocytes % (Manual) Monocytes % (Manual) Nucleated RBC % Seg Neutrophils # Seg Neutrophils # Man Monocytes # (Manual) PT INR Activated Clotting Time POC ABG pH POC ABG pCO2 POC ABG pO2 Sodium Potassium Chloride Carbon Dioxide BUN Creatinine Glucose POC Glucose 127 H 137 H 148 H Calcium Magnesium Direct Bilirubin AST ALT Alkaline Phosphatase Total Creatine Kinase CK-MB (CK-2) CK-MB (CK-2) Rel Index Troponin T C-Reactive Protein Total Protein Albumin Triglycerides Ur Specific [place] Urine WBC (Auto) 04/01/17 04/01/17 04/01/17 04:29 05:01 11:54 WBC RBC Hgb Hct MCV MCH Plt Count Lymph % (Auto) Eos % (Auto) Baso % (Auto) Lymph # Baso # Seg Neutrophils % Lymphocytes % (Manual) Monocytes % (Manual) Nucleated RBC % Seg Neutrophils # Seg Neutrophils # Man Monocytes # (Manual) PT INR Activated Clotting Time POC ABG pH 7.513 H POC ABG pCO2 22.1 L POC ABG pO2 64 L Sodium Potassium Chloride Carbon Dioxide BUN Creatinine Glucose POC Glucose 121 H Calcium Magnesium Direct Bilirubin AST ALT Alkaline Phosphatase Total Creatine Kinase CK-MB (CK-2) CK-MB (CK-2) Rel Index Troponin T C-Reactive Protein Total Protein Albumin Triglycerides 151 H Ur Specific [place] Urine WBC (Auto) 04/01/17 04/02/17 04/02/17 18:17 00:11 04:52 WBC RBC Hgb Hct MCV MCH Plt Count Lymph % (Auto) Eos % (Auto) Baso % (Auto) Lymph # Baso # Seg Neutrophils % Lymphocytes % (Manual) Monocytes % (Manual) Nucleated RBC % Seg Neutrophils # Seg Neutrophils # Man Monocytes # (Manual) PT INR Activated Clotting Time POC ABG pH 7.524 H POC ABG pCO2 25.5 L POC ABG pO2 66 L Sodium Potassium Chloride Carbon Dioxide BUN Creatinine Glucose POC Glucose 117 H 122 H Calcium Magnesium Direct Bilirubin AST ALT Alkaline Phosphatase Total Creatine Kinase CK-MB (CK-2) CK-MB (CK-2) Rel Index Troponin T C-Reactive Protein Total Protein Albumin Triglycerides Ur Specific [place] Urine WBC (Auto) 04/02/17 04/02/17 04/02/17 05:18 10:41 12:19 WBC RBC Hgb Hct MCV MCH Plt Count Lymph % (Auto) Eos % (Auto) Baso % (Auto) Lymph # Baso # Seg Neutrophils % Lymphocytes % (Manual) Monocytes % (Manual) Nucleated RBC % Seg Neutrophils # Seg Neutrophils # Man Monocytes # (Manual) PT INR Activated Clotting Time POC ABG pH 7.534 H POC ABG pCO2 27.4 L POC ABG pO2 Sodium Potassium Chloride Carbon Dioxide BUN Creatinine Glucose POC Glucose 132 H 129 H Calcium Magnesium Direct Bilirubin AST ALT Alkaline Phosphatase Total Creatine Kinase CK-MB (CK-2) CK-MB (CK-2) Rel Index Troponin T C-Reactive Protein Total Protein Albumin Triglycerides Ur Specific [place] Urine WBC (Auto) 04/02/17 04/03/17 04/03/17 18:05 00:08 05:09 WBC RBC Hgb Hct MCV MCH Plt Count Lymph % (Auto) Eos % (Auto) Baso % (Auto) Lymph # Baso # Seg Neutrophils % Lymphocytes % (Manual) Monocytes % (Manual) Nucleated RBC % Seg Neutrophils # Seg Neutrophils # Man Monocytes # (Manual) PT INR Activated Clotting Time POC ABG pH 7.455 H POC ABG pCO2 33.2 L POC ABG pO2 120 H Sodium Potassium Chloride Carbon Dioxide BUN Creatinine Glucose POC Glucose 136 H 128 H Calcium Magnesium Direct Bilirubin AST ALT Alkaline Phosphatase Total Creatine Kinase CK-MB (CK-2) CK-MB (CK-2) Rel Index Troponin T C-Reactive Protein Total Protein Albumin Triglycerides Ur Specific [place] Urine WBC (Auto) 04/03/17 04/03/17 04/03/17 06:32 11:54 12:16 WBC 11.9 H RBC Hgb Hct MCV MCH Plt Count 125 L Lymph % (Auto) 4.8 L Eos % (Auto) Baso % (Auto) Lymph # 0.6 L Baso # Seg Neutrophils % 86.7 H Lymphocytes % (Manual) Monocytes % (Manual) Nucleated RBC % Seg Neutrophils # 10.3 H Seg Neutrophils # Man Monocytes # (Manual) PT INR Activated Clotting Time POC ABG pH POC ABG pCO2 POC ABG pO2 Sodium Potassium Chloride Carbon Dioxide BUN Creatinine Glucose POC Glucose 138 H 143 H Calcium Magnesium Direct Bilirubin AST ALT Alkaline Phosphatase Total Creatine Kinase CK-MB (CK-2) CK-MB (CK-2) Rel Index Troponin T C-Reactive Protein Total Protein Albumin Triglycerides Ur Specific [place] Urine WBC (Auto) 04/03/17 04/03/17 04/04/17 17:33 23:59 04:34 WBC RBC Hgb Hct MCV MCH Plt Count Lymph % (Auto) Eos % (Auto) Baso % (Auto) Lymph # Baso # Seg Neutrophils % Lymphocytes % (Manual) Monocytes % (Manual) Nucleated RBC % Seg Neutrophils # Seg Neutrophils # Man Monocytes # (Manual) PT INR Activated Clotting Time POC ABG pH 7.457 H POC ABG pCO2 29.8 L POC ABG pO2 76 L Sodium Potassium Chloride Carbon Dioxide BUN Creatinine Glucose POC Glucose 130 H 155 H Calcium Magnesium Direct Bilirubin AST ALT Alkaline Phosphatase Total Creatine Kinase CK-MB (CK-2) CK-MB (CK-2) Rel Index Troponin T C-Reactive Protein Total Protein Albumin Triglycerides Ur Specific [place] Urine WBC (Auto) 04/04/17 04/04/17 04/04/17 05:27 12:22 18:18 WBC RBC Hgb Hct MCV MCH Plt Count Lymph % (Auto) Eos % (Auto) Baso % (Auto) Lymph # Baso # Seg Neutrophils % Lymphocytes % (Manual) Monocytes % (Manual) Nucleated RBC % Seg Neutrophils # Seg Neutrophils # Man Monocytes # (Manual) PT INR Activated Clotting Time POC ABG pH POC ABG pCO2 POC ABG pO2 Sodium Potassium Chloride Carbon Dioxide BUN Creatinine Glucose POC Glucose 164 H 146 H 130 H Calcium Magnesium Direct Bilirubin AST ALT Alkaline Phosphatase Total Creatine Kinase CK-MB (CK-2) CK-MB (CK-2) Rel Index Troponin T C-Reactive Protein Total Protein Albumin Triglycerides Ur Specific [place] Urine WBC (Auto) 04/05/17 04/05/17 04/05/17 04:43 05:28 11:36 WBC RBC Hgb Hct MCV MCH Plt Count Lymph % (Auto) Eos % (Auto) Baso % (Auto) Lymph # Baso # Seg Neutrophils % Lymphocytes % (Manual) Monocytes % (Manual) Nucleated RBC % Seg Neutrophils # Seg Neutrophils # Man Monocytes # (Manual) PT INR Activated Clotting Time POC ABG pH 7.479 H POC ABG pCO2 33.5 L POC ABG pO2 76 L Sodium Potassium Chloride Carbon Dioxide BUN Creatinine Glucose POC Glucose 145 H 136 H Calcium Magnesium Direct Bilirubin AST ALT Alkaline Phosphatase Total Creatine Kinase CK-MB (CK-2) CK-MB (CK-2) Rel Index Troponin T C-Reactive Protein Total Protein Albumin Triglycerides Ur Specific [place] Urine WBC (Auto) 04/05/17 04/06/17 04/06/17 17:58 00:16 05:26 WBC RBC Hgb Hct MCV MCH Plt Count Lymph % (Auto) Eos % (Auto) Baso % (Auto) Lymph # Baso # Seg Neutrophils % Lymphocytes % (Manual) Monocytes % (Manual) Nucleated RBC % Seg Neutrophils # Seg Neutrophils # Man Monocytes # (Manual) PT INR Activated Clotting Time POC ABG pH POC ABG pCO2 POC ABG pO2 Sodium Potassium Chloride Carbon Dioxide BUN Creatinine Glucose POC Glucose 130 H 159 H 146 H Calcium Magnesium Direct Bilirubin AST ALT Alkaline Phosphatase Total Creatine Kinase CK-MB (CK-2) CK-MB (CK-2) Rel Index Troponin T C-Reactive Protein Total Protein Albumin Triglycerides Ur Specific [place] Urine WBC (Auto) 04/06/17 04/06/17 04/07/17 13:11 16:54 11:45 WBC RBC Hgb Hct MCV MCH Plt Count Lymph % (Auto) Eos % (Auto) Baso % (Auto) Lymph # Baso # Seg Neutrophils % Lymphocytes % (Manual) Monocytes % (Manual) Nucleated RBC % Seg Neutrophils # Seg Neutrophils # Man Monocytes # (Manual) PT INR Activated Clotting Time POC ABG pH 7.517 H POC ABG pCO2 32.1 L POC ABG pO2 Sodium Potassium Chloride Carbon Dioxide BUN Creatinine Glucose POC Glucose 132 H 123 H Calcium Magnesium Direct Bilirubin AST ALT Alkaline Phosphatase Total Creatine Kinase CK-MB (CK-2) CK-MB (CK-2) Rel Index Troponin T C-Reactive Protein Total Protein Albumin Triglycerides Ur Specific [place] Urine WBC (Auto) 04/07/17 04/07/17 04/07/17 12:51 17:40 23:55 WBC RBC Hgb Hct MCV MCH Plt Count Lymph % (Auto) Eos % (Auto) Baso % (Auto) Lymph # Baso # Seg Neutrophils % Lymphocytes % (Manual) Monocytes % (Manual) Nucleated RBC % Seg Neutrophils # Seg Neutrophils # Man Monocytes # (Manual) PT INR Activated Clotting Time POC ABG pH POC ABG pCO2 POC ABG pO2 Sodium Potassium Chloride Carbon Dioxide BUN Creatinine Glucose POC Glucose 138 H 154 H 143 H Calcium Magnesium Direct Bilirubin AST ALT Alkaline Phosphatase Total Creatine Kinase CK-MB (CK-2) CK-MB (CK-2) Rel Index Troponin T C-Reactive Protein Total Protein Albumin Triglycerides Ur Specific [place] Urine WBC (Auto) 04/08/17 04/08/17 04/08/17 05:27 11:14 17:44 WBC RBC Hgb Hct MCV MCH Plt Count Lymph % (Auto) Eos % (Auto) Baso % (Auto) Lymph # Baso # Seg Neutrophils % Lymphocytes % (Manual) Monocytes % (Manual) Nucleated RBC % Seg Neutrophils # Seg Neutrophils # Man Monocytes # (Manual) PT INR Activated Clotting Time POC ABG pH POC ABG pCO2 POC ABG pO2 Sodium Potassium Chloride Carbon Dioxide BUN Creatinine Glucose POC Glucose 142 H 153 H 129 H Calcium Magnesium Direct Bilirubin AST ALT Alkaline Phosphatase Total Creatine Kinase CK-MB (CK-2) CK-MB (CK-2) Rel Index Troponin T C-Reactive Protein Total Protein Albumin Triglycerides Ur Specific [place] Urine WBC (Auto) 04/09/17 04/09/17 04/09/17 08:20 11:21 17:37 WBC RBC Hgb Hct MCV MCH Plt Count Lymph % (Auto) Eos % (Auto) Baso % (Auto) Lymph # Baso # Seg Neutrophils % Lymphocytes % (Manual) Monocytes % (Manual) Nucleated RBC % Seg Neutrophils # Seg Neutrophils # Man Monocytes # (Manual) PT INR Activated Clotting Time POC ABG pH POC ABG pCO2 POC ABG pO2 Sodium 147 H Potassium Chloride 108.8 H Carbon Dioxide BUN 39 H Creatinine 0.5 L Glucose 138 H POC Glucose 152 H 109 H Calcium Magnesium Direct Bilirubin AST ALT Alkaline Phosphatase Total Creatine Kinase CK-MB (CK-2) CK-MB (CK-2) Rel Index Troponin T C-Reactive Protein Total Protein Albumin Triglycerides Ur Specific [place] Urine WBC (Auto) 04/10/17 04/10/17 04/10/17 00:13 04:16 04:16 WBC RBC Hgb 11.5 L Hct MCV 96 H MCH Plt Count 103 L Lymph % (Auto) 11.1 L Eos % (Auto) Baso % (Auto) Lymph # Baso # Seg Neutrophils % 81.5 H Lymphocytes % (Manual) Monocytes % (Manual) Nucleated RBC % Seg Neutrophils # 8.8 H Seg Neutrophils # Man Monocytes # (Manual) PT INR Activated Clotting Time POC ABG pH POC ABG pCO2 POC ABG pO2 Sodium 148 H Potassium Chloride 109.0 H Carbon Dioxide BUN 36 H Creatinine 0.5 L Glucose 131 H POC Glucose 127 H Calcium 8.1 L Magnesium 2.40 H Direct Bilirubin AST 206 H ALT 228 H Alkaline Phosphatase 178 H Total Creatine Kinase CK-MB (CK-2) CK-MB (CK-2) Rel Index Troponin T C-Reactive Protein Total Protein Albumin 2.8 L Triglycerides Ur Specific [place] Urine WBC (Auto) 04/10/17 04/10/17 04/10/17 06:01 11:57 18:27 WBC RBC Hgb Hct MCV MCH Plt Count Lymph % (Auto) Eos % (Auto) Baso % (Auto) Lymph # Baso # Seg Neutrophils % Lymphocytes % (Manual) Monocytes % (Manual) Nucleated RBC % Seg Neutrophils # Seg Neutrophils # Man Monocytes # (Manual) PT INR Activated Clotting Time POC ABG pH POC ABG pCO2 POC ABG pO2 Sodium Potassium Chloride Carbon Dioxide BUN Creatinine Glucose POC Glucose 108 H 154 H 130 H Calcium Magnesium Direct Bilirubin AST ALT Alkaline Phosphatase Total Creatine Kinase CK-MB (CK-2) CK-MB (CK-2) Rel Index Troponin T C-Reactive Protein Total Protein Albumin Triglycerides Ur Specific [place] Urine WBC (Auto) 04/11/17 04/11/17 04/12/17 12:25 17:10 00:22 WBC RBC Hgb Hct MCV MCH Plt Count Lymph % (Auto) Eos % (Auto) Baso % (Auto) Lymph # Baso # Seg Neutrophils % Lymphocytes % (Manual) Monocytes % (Manual) Nucleated RBC % Seg Neutrophils # Seg Neutrophils # Man Monocytes # (Manual) PT INR Activated Clotting Time POC ABG pH POC ABG pCO2 POC ABG pO2 Sodium Potassium Chloride Carbon Dioxide BUN Creatinine Glucose POC Glucose 107 H 129 H 128 H Calcium Magnesium Direct Bilirubin AST ALT Alkaline Phosphatase Total Creatine Kinase CK-MB (CK-2) CK-MB (CK-2) Rel Index Troponin T C-Reactive Protein Total Protein Albumin Triglycerides Ur Specific [place] Urine WBC (Auto) 04/12/17 04/12/17 04/12/17 05:00 11:57 17:47 WBC RBC Hgb Hct MCV MCH Plt Count Lymph % (Auto) Eos % (Auto) Baso % (Auto) Lymph # Baso # Seg Neutrophils % Lymphocytes % (Manual) Monocytes % (Manual) Nucleated RBC % Seg Neutrophils # Seg Neutrophils # Man Monocytes # (Manual) PT INR Activated Clotting Time POC ABG pH POC ABG pCO2 POC ABG pO2 Sodium Potassium Chloride Carbon Dioxide BUN Creatinine Glucose POC Glucose 140 H 142 H Calcium Magnesium Direct Bilirubin AST 158 H ALT 184 H Alkaline Phosphatase 170 H Total Creatine Kinase CK-MB (CK-2) CK-MB (CK-2) Rel Index Troponin T C-Reactive Protein Total Protein Albumin 2.8 L Triglycerides Ur Specific [place] Urine WBC (Auto) 04/12/17 04/12/17 04/13/17 21:36 21:36 01:37 WBC RBC Hgb Hct MCV MCH Plt Count Lymph % (Auto) Eos % (Auto) Baso % (Auto) Lymph # Baso # Seg Neutrophils % Lymphocytes % (Manual) Monocytes % (Manual) Nucleated RBC % Seg Neutrophils # Seg Neutrophils # Man Monocytes # (Manual) PT INR Activated Clotting Time POC ABG pH POC ABG pCO2 POC ABG pO2 Sodium Potassium Chloride Carbon Dioxide BUN Creatinine Glucose POC Glucose 126 H Calcium Magnesium Direct Bilirubin AST ALT Alkaline Phosphatase Total Creatine Kinase 1404 H CK-MB (CK-2) 8.0 H CK-MB (CK-2) Rel Index Troponin T 0.767 H* C-Reactive Protein Total Protein Albumin Triglycerides Ur Specific [place] Urine WBC (Auto) 04/13/17 04/13/17 04/13/17 04:45 04:52 12:17 WBC RBC Hgb Hct MCV MCH Plt Count Lymph % (Auto) Eos % (Auto) Baso % (Auto) Lymph # Baso # Seg Neutrophils % Lymphocytes % (Manual) Monocytes % (Manual) Nucleated RBC % Seg Neutrophils # Seg Neutrophils # Man Monocytes # (Manual) PT INR Activated Clotting Time POC ABG pH POC ABG pCO2 POC ABG pO2 Sodium 148 H Potassium Chloride 112.8 H Carbon Dioxide BUN 33 H Creatinine 0.4 L Glucose 121 H POC Glucose 126 H 149 H Calcium Magnesium Direct Bilirubin AST 160 H ALT 189 H Alkaline Phosphatase 166 H Total Creatine Kinase CK-MB (CK-2) CK-MB (CK-2) Rel Index Troponin T C-Reactive Protein Total Protein Albumin 2.6 L Triglycerides Ur Specific [place] Urine WBC (Auto) 04/13/17 04/14/17 04/14/17 17:45 00:20 00:45 WBC RBC Hgb Hct MCV MCH Plt Count Lymph % (Auto) Eos % (Auto) Baso % (Auto) Lymph # Baso # Seg Neutrophils % Lymphocytes % (Manual) Monocytes % (Manual) Nucleated RBC % Seg Neutrophils # Seg Neutrophils # Man Monocytes # (Manual) PT INR Activated Clotting Time POC ABG pH POC ABG pCO2 POC ABG pO2 Sodium Potassium Chloride Carbon Dioxide BUN Creatinine Glucose POC Glucose 130 H 144 H 144 H Calcium Magnesium Direct Bilirubin AST ALT Alkaline Phosphatase Total Creatine Kinase CK-MB (CK-2) CK-MB (CK-2) Rel Index Troponin T C-Reactive Protein Total Protein Albumin Triglycerides Ur Specific [place] Urine WBC (Auto) 04/14/17 04/14/17 04/14/17 05:40 11:06 11:31 WBC RBC Hgb Hct MCV MCH Plt Count Lymph % (Auto) Eos % (Auto) Baso % (Auto) Lymph # Baso # Seg Neutrophils % Lymphocytes % (Manual) Monocytes % (Manual) Nucleated RBC % Seg Neutrophils # Seg Neutrophils # Man Monocytes # (Manual) PT INR Activated Clotting Time POC ABG pH POC ABG pCO2 POC ABG pO2 Sodium Potassium Chloride Carbon Dioxide BUN Creatinine Glucose POC Glucose 139 H 123 H Calcium Magnesium Direct Bilirubin AST ALT Alkaline Phosphatase Total Creatine Kinase CK-MB (CK-2) CK-MB (CK-2) Rel Index Troponin T C-Reactive Protein Total Protein Albumin Triglycerides Ur Specific [place] 1.033 H Urine WBC (Auto) > 182.0 H 04/14/17 04/14/17 04/15/17 18:00 23:52 05:15 WBC 12.5 H RBC 3.38 L Hgb 10.6 L Hct 32.7 L MCV 97 H MCH Plt Count 107 L Lymph % (Auto) 8.7 L Eos % (Auto) Baso % (Auto) Lymph # 1.1 L Baso # Seg Neutrophils % 86.1 H Lymphocytes % (Manual) Monocytes % (Manual) Nucleated RBC % Seg Neutrophils # 10.7 H Seg Neutrophils # Man Monocytes # (Manual) PT INR Activated Clotting Time POC ABG pH POC ABG pCO2 POC ABG pO2 Sodium Potassium Chloride Carbon Dioxide BUN Creatinine Glucose POC Glucose 133 H 133 H Calcium Magnesium Direct Bilirubin AST ALT Alkaline Phosphatase Total Creatine Kinase CK-MB (CK-2) CK-MB (CK-2) Rel Index Troponin T C-Reactive Protein Total Protein Albumin Triglycerides Ur Specific [place] Urine WBC (Auto) 04/15/17 04/15/17 04/15/17 05:15 05:25 11:50 WBC RBC Hgb Hct MCV MCH Plt Count Lymph % (Auto) Eos % (Auto) Baso % (Auto) Lymph # Baso # Seg Neutrophils % Lymphocytes % (Manual) Monocytes % (Manual) Nucleated RBC % Seg Neutrophils # Seg Neutrophils # Man Monocytes # (Manual) PT INR Activated Clotting Time POC ABG pH POC ABG pCO2 POC ABG pO2 Sodium 149 H Potassium 3.5 L Chloride 114.1 H Carbon Dioxide 21 L BUN 29 H Creatinine 0.4 L Glucose 128 H POC Glucose 133 H 107 H Calcium 8.3 L Magnesium Direct Bilirubin 0.4 H AST 149 H ALT 182 H Alkaline Phosphatase 143 H Total Creatine Kinase CK-MB (CK-2) CK-MB (CK-2) Rel Index Troponin T C-Reactive Protein Total Protein Albumin 2.5 L Triglycerides Ur Specific [place] Urine WBC (Auto) 04/15/17 04/16/17 04/16/17 16:55 00:02 03:17 WBC RBC 3.39 L Hgb 10.5 L Hct 32.4 L MCV 96 H MCH Plt Count 106 L Lymph % (Auto) 6.7 L Eos % (Auto) Baso % (Auto) Lymph # 0.6 L Baso # Seg Neutrophils % 86.8 H Lymphocytes % (Manual) Monocytes % (Manual) Nucleated RBC % Seg Neutrophils # 8.2 H Seg Neutrophils # Man Monocytes # (Manual) PT INR Activated Clotting Time POC ABG pH POC ABG pCO2 POC ABG pO2 Sodium Potassium Chloride Carbon Dioxide BUN Creatinine Glucose POC Glucose 146 H 148 H Calcium Magnesium Direct Bilirubin AST ALT Alkaline Phosphatase Total Creatine Kinase CK-MB (CK-2) CK-MB (CK-2) Rel Index Troponin T C-Reactive Protein Total Protein Albumin Triglycerides Ur Specific [place] Urine WBC (Auto) 04/16/17 04/16/17 04/16/17 03:17 05:19 11:13 WBC RBC Hgb Hct MCV MCH Plt Count Lymph % (Auto) Eos % (Auto) Baso % (Auto) Lymph # Baso # Seg Neutrophils % Lymphocytes % (Manual) Monocytes % (Manual) Nucleated RBC % Seg Neutrophils # Seg Neutrophils # Man Monocytes # (Manual) PT INR Activated Clotting Time POC ABG pH POC ABG pCO2 POC ABG pO2 Sodium 149 H Potassium Chloride 111.1 H Carbon Dioxide 20 L BUN 27 H Creatinine 0.3 L Glucose 156 H POC Glucose 171 H 169 H Calcium 8.3 L Magnesium Direct Bilirubin AST ALT Alkaline Phosphatase Total Creatine Kinase CK-MB (CK-2) CK-MB (CK-2) Rel Index Troponin T C-Reactive Protein Total Protein Albumin Triglycerides Ur Specific [place] Urine WBC (Auto) 04/16/17 04/17/17 04/17/17 17:03 00:00 05:09 WBC RBC Hgb Hct MCV MCH Plt Count Lymph % (Auto) Eos % (Auto) Baso % (Auto) Lymph # Baso # Seg Neutrophils % Lymphocytes % (Manual) Monocytes % (Manual) Nucleated RBC % Seg Neutrophils # Seg Neutrophils # Man Monocytes # (Manual) PT INR Activated Clotting Time POC ABG pH POC ABG pCO2 POC ABG pO2 Sodium Potassium Chloride Carbon Dioxide BUN Creatinine Glucose POC Glucose 151 H 165 H 145 H Calcium Magnesium Direct Bilirubin AST ALT Alkaline Phosphatase Total Creatine Kinase CK-MB (CK-2) CK-MB (CK-2) Rel Index Troponin T C-Reactive Protein Total Protein Albumin Triglycerides Ur Specific [place] Urine WBC (Auto) 04/17/17 04/17/17 04/18/17 11:38 17:47 00:01 WBC RBC Hgb Hct MCV MCH Plt Count Lymph % (Auto) Eos % (Auto) Baso % (Auto) Lymph # Baso # Seg Neutrophils % Lymphocytes % (Manual) Monocytes % (Manual) Nucleated RBC % Seg Neutrophils # Seg Neutrophils # Man Monocytes # (Manual) PT INR Activated Clotting Time POC ABG pH POC ABG pCO2 POC ABG pO2 Sodium Potassium Chloride Carbon Dioxide BUN Creatinine Glucose POC Glucose 170 H 161 H 131 H Calcium Magnesium Direct Bilirubin AST ALT Alkaline Phosphatase Total Creatine Kinase CK-MB (CK-2) CK-MB (CK-2) Rel Index Troponin T C-Reactive Protein Total Protein Albumin Triglycerides Ur Specific [place] Urine WBC (Auto) 04/18/17 04/18/17 04/18/17 03:55 03:55 05:30 WBC RBC 3.05 L Hgb 9.8 L Hct 29.0 L MCV 95 H MCH Plt Count 113 L Lymph % (Auto) Eos % (Auto) 5.3 H Baso % (Auto) Lymph # Baso # Seg Neutrophils % 71.5 H Lymphocytes % (Manual) Monocytes % (Manual) Nucleated RBC % Seg Neutrophils # Seg Neutrophils # Man Monocytes # (Manual) PT INR Activated Clotting Time POC ABG pH 7.460 H POC ABG pCO2 30.8 L POC ABG pO2 129 H Sodium Potassium Chloride Carbon Dioxide 21 L BUN 25 H Creatinine 0.4 L Glucose 123 H POC Glucose Calcium 8.3 L Magnesium Direct Bilirubin AST ALT Alkaline Phosphatase Total Creatine Kinase CK-MB (CK-2) CK-MB (CK-2) Rel Index Troponin T C-Reactive Protein Total Protein Albumin Triglycerides Ur Specific [place] Urine WBC (Auto) 04/18/17 04/18/17 04/19/17 17:10 23:40 04:36 WBC RBC 3.21 L Hgb 10.2 L Hct 30.4 L MCV 95 H MCH Plt Count 131 L Lymph % (Auto) 12.1 L Eos % (Auto) 4.7 H Baso % (Auto) 2.4 H Lymph # 0.9 L Baso # 0.2 H Seg Neutrophils % 75.0 H Lymphocytes % (Manual) Monocytes % (Manual) Nucleated RBC % Seg Neutrophils # Seg Neutrophils # Man Monocytes # (Manual) PT INR Activated Clotting Time POC ABG pH POC ABG pCO2 POC ABG pO2 Sodium Potassium Chloride Carbon Dioxide BUN Creatinine Glucose POC Glucose 135 H 157 H Calcium Magnesium Direct Bilirubin AST ALT Alkaline Phosphatase Total Creatine Kinase CK-MB (CK-2) CK-MB (CK-2) Rel Index Troponin T C-Reactive Protein Total Protein Albumin Triglycerides Ur Specific [place] Urine WBC (Auto) 04/19/17 04/19/17 04/19/17 04:36 05:12 06:50 WBC RBC Hgb Hct MCV MCH Plt Count Lymph % (Auto) Eos % (Auto) Baso % (Auto) Lymph # Baso # Seg Neutrophils % Lymphocytes % (Manual) Monocytes % (Manual) Nucleated RBC % Seg Neutrophils # Seg Neutrophils # Man Monocytes # (Manual) PT INR Activated Clotting Time POC ABG pH 7.516 H POC ABG pCO2 28.0 L POC ABG pO2 Sodium Potassium Chloride Carbon Dioxide 21 L BUN 23 H Creatinine 0.2 L Glucose 137 H POC Glucose 131 H Calcium 7.9 L Magnesium Direct Bilirubin AST ALT Alkaline Phosphatase Total Creatine Kinase CK-MB (CK-2) CK-MB (CK-2) Rel Index Troponin T C-Reactive Protein Total Protein Albumin Triglycerides Ur Specific [place] Urine WBC (Auto) Chest x-ray: report reviewed, image reviewed (worsening bilateral infiltrates c/ w worsening pulmonary edema, less likely pneumonia)
[2017-04-19] MEDS: TYLENOL PO PRN (16:06)
[2017-04-20] MEDS: LOPRESSOR PO SCH ×4 (00:27→18:00)
[2017-04-20] MEDS: TYLENOL PO PRN (03:37)
[2017-04-20 04:26] LABS: Basophils # (Auto) 0.1 K/mm3 (0.0-0.1); Basophils % (Auto) 0.6 % (0.0-1.8); Eosinophils # (Auto) 0.3 K/mm3 (0.0-0.4); Eosinophils % (Auto) 3.1 % (0.0-4.3); Hematocrit 31.6 % (35.5-45.6); Hemoglobin 10.4 gm/dl (11.8-15.2); Lymphocytes # (Auto) 1.2 K/mm3 (1.2-5.4); Lymphocytes % (Auto) 12.9 % (13.4-35.0); Mean Corpuscular HGB Conc 33 % (32-34); Mean Corpuscular Hemoglobin 31 pg (28-32); Mean Corpuscular Volume 95 fl (84-94); Monocytes # (Auto) 0.5 K/mm3 (0.0-0.8); Monocytes % (Auto) 6.1 % (0.0-7.3); Platelet Count 145 K/mm3 (140-440); Red Blood Count 3.34 M/mm3 (3.65-5.03); Red Cell Distribution Width 14.3 % (13.2-15.2)
[2017-04-20 04:36] LABS: BUN/Creatinine Ratio 67; Blood Urea Nitrogen 20 mg/dL (9-20); Calcium 7.8 mg/dL (8.4-10.2); Hemolysis Index 10
[2017-04-20] MEDS: cefTRIAXone 1 GM in NACL 0.9% 20 ML IV SCH (09:27)
[2017-04-20] MEDS: PROTONIX FEEDTUBE SCH (09:33)
[2017-04-20] MEDS: PLAVIX PO SCH (09:33)
[2017-04-20] MEDS: ASPIRIN PO SCH (09:33)
[2017-04-20] MEDS: COLACE FEEDTUBE SCH ×2 (09:34→21:39)
[2017-04-20] MEDS: ZESTRIL PO SCH (09:34)
[2017-04-20] MEDS: HEPARIN SUB-Q SCH ×2 (09:34→21:39)
[2017-04-20] MEDS: NOVOLOG SUB-Q SCH ×2 (13:00→18:42)
--- NOTE | 2017-04-20 13:54 | Progress Note ---
Assessment and Plan Imp: 1. s/p CP arrest 2. Anoxic enceph. 3. Acute respiratory failure, hypoxia 4. s/p Trach/PEG 5. Hypernatremia 6. STEMI/ICMP 7. UTI Rec: 1. Lasix 20mg per PEG daily 2. Rocephin vs. E.coli & monitor temp curve; f/u sputum culture GNRs although not convinced these are pathogenic; check procal level 3. Daily PSV if able 4. Plavix 5. TFs, DVT/GI PPx 6. Stop NTG patch; holding VICENTA and BB due to borderline low BP 7. Dismal prognosis and bad outcome is expected; no family present; complex patient Subjective Date of service: 04/20/17 Principal diagnosis: septic shock Interval history: No events. Continues to have fevers. Unresponsive. + Copious secretions from ET tube and orally/nasally. Less tachypneic today. Active Medications Acetaminophen (Tylenol) 1,000 mg PO Q6H PRN PRN Reason: Fever >101 Last Admin: 04/20/17 03:37 Dose: 1,000 mg Albuterol (Proventil) 2.5 mg IH Q3HRT PRN PRN Reason: Shortness Of Breath Last Admin: 04/13/17 21:25 Dose: 2.5 mg Lipase/Protease/Amylase (Pancreaze Dr 10,500 Unit) 1 each FEEDTUBE PRN PRN PRN Reason: For Clogged Feeding Tube Aspirin (Aspirin) 325 mg PO [facility]DAY [facility] Last Admin: 04/20/17 09:33 Dose: 325 mg Clopidogrel Bisulfate (Plavix) 75 mg PO QDAY [facility] Last Admin: 04/20/17 09:33 Dose: 75 mg Dextrose (D50w (25gm) Syringe) 50 ml IV PRN PRN PRN Reason: Hypoglycemia Docusate Sodium (Colace) 100 mg FEEDTUBE BID [facility] Last Admin: 04/20/17 09:34 Dose: 100 mg Furosemide (Lasix) 20 mg PO [facility]DAY [facility] Heparin Sodium (Porcine) (Heparin) 5,000 unit SUB-Q Q12HR [facility] Last Admin: 04/20/17 09:34 Dose: 5,000 unit Hydrophilic Ointment (Vaseline Lip Therapy) 1 applic TP Q2HR PRN PRN Reason: Dry Lips Last Admin: 03/31/17 22:50 Dose: 1 applic Ceftriaxone Sodium 1 gm/ (Sodium Chloride) 20 mls @ 20 mls/10 min IV Q24HR [facility] Stop: 04/22/17 12:00 Last Admin: 04/20/17 09:27 Dose: 20 mls/10 min Insulin Aspart (Novolog) 0 units SUB-Q Q6HR [facility] PRN Reason: Protocol Last Admin: 04/20/17 13:00 Dose: 2 units Lisinopril (Zestril) 2.5 mg PO QDAY [facility] Last Admin: 04/20/17 09:34 Dose: Not Given Metoprolol Tartrate (Lopressor) 2.5 mg IV Q4HR PRN PRN Reason: HR>130 Last Admin: 04/09/17 19:41 Dose: 2.5 mg Metoprolol Tartrate (Lopressor) 50 mg PO Q6HR [facility] Last Admin: 04/20/17 12:00 Dose: Not Given Multi-Ingred Cream/Lotion/Oil/Oint (Artificial Tears Ophth Oint) 1 applic OU Q4HR PRN PRN Reason: Dry Eye(s) Last Admin: 03/31/17 22:51 Dose: 1 applic Pantoprazole (Protonix) 40 mg FEEDTUBE DAILY [facility] Last Admin: 04/20/17 09:33 Dose: 40 mg Simple Syrup (Simple Syrup) 15 ml FEEDTUBE PRN PRN PRN Reason: Hypoglycemia Simple Syrup (Simple Syrup) 30 ml FEEDTUBE PRN PRN PRN Reason: Hypoglycemia Sodium Bicarbonate (Sodium Bicarbonate) 325 mg FEEDTUBE PRN PRN PRN Reason: For Clogged Feeding Tube Objective Vital Signs - 12hr 04/20/17 04/20/17 04/20/17 02:00 03:00 03:08 Temperature Pulse Rate 100 H 101 H 102 H Pulse Rate [ From Monitor] Respiratory 30 H 27 H Rate Blood Pressure 98/56 97/55 97/55 O2 Sat by Pulse 99 Oximetry O2 Sat by Pulse Oximetry [ Assessment] 04/20/17 04/20/17 04/20/17 03:34 04:00 05:00 Temperature 102.5 F H Pulse Rate 105 H 91 H Pulse Rate [ From Monitor] Respiratory 31 H 27 H Rate Blood Pressure 96/58 98/60 O2 Sat by Pulse 94 98 Oximetry O2 Sat by Pulse Oximetry [ Assessment] 04/20/17 04/20/17 04/20/17 06:00 06:05 07:00 Temperature Pulse Rate 88 87 Pulse Rate [ From Monitor] Respiratory 26 H 26 H Rate Blood Pressure 101/65 97/55 100/67 O2 Sat by Pulse Oximetry O2 Sat by Pulse Oximetry [ Assessment] 04/20/17 04/20/17 04/20/17 07:23 07:28 08:00 Temperature 98.5 F Pulse Rate 90 88 Pulse Rate [ 88 From Monitor] Respiratory 26 H 25 H Rate Blood Pressure 100/67 107/71 O2 Sat by Pulse 95 100 Oximetry O2 Sat by Pulse 98 Oximetry [ Assessment] 04/20/17 04/20/17 04/20/17 09:00 09:34 10:00 Temperature Pulse Rate 92 H 92 H 91 H Pulse Rate [ From Monitor] Respiratory 26 H 25 H Rate Blood Pressure 98/71 103/67 96/58 O2 Sat by Pulse 96 Oximetry O2 Sat by Pulse Oximetry [ Assessment] 04/20/17 04/20/17 04/20/17 10:31 11:00 12:00 Temperature 96.9 F L Pulse Rate 86 87 89 Pulse Rate [ 89 From Monitor] Respiratory 25 H 22 Rate Blood Pressure 100/66 97/56 96/67 O2 Sat by Pulse 98 100 Oximetry O2 Sat by Pulse Oximetry [ Assessment] Constitutional: comatose Eyes: non-icteric ENT: oropharynx moist Neck: supple Effort: normal Ascultation: Bilateral: other (coarse BS bilaterally) Percussion: Bilateral: not dull Cardiovascular: regular rate and rhythm (no mrg) Gastrointestinal: normoactive bowel sounds, soft, non-tender, non-distended, other (mild distention) Integumentary: normal, other (multiple tattoos) Extremities: no cyanosis, no edema, pink and warm Neurologic: other (comatose, flaccid extremities, good cough w/ suction) Psychiatric: other (unable to assess) CBC and BMP: 04/20/17 03:35 04/20/17 03:35 ABG, PT/INR, D-dimer: ABG POC ABG pH 7.516 (7.35-7.45) H 04/19/17 06:50 POC ABG pCO2 28.0 (35-45) L 04/19/17 06:50 POC ABG pO2 81 (80-105) 04/19/17 06:50 POC ABG HCO3 22.7 04/19/17 06:50 POC ABG Total CO2 24 04/19/17 06:50 POC ABG O2 Sat 97 04/19/17 06:50 PT/INR, D-dimer PT 14.9 Sec. (12.2-14.9) 04/10/17 04:16 INR 1.11 (0.87-1.13) 04/10/17 04:16 Abnormal lab findings: Abnormal Labs 03/29/17 03/29/17 03/29/17 11:35 11:35 11:40 WBC RBC Hgb Hct MCV 98 H MCH 33 H Plt Count Lymph % (Auto) Eos % (Auto) Baso % (Auto) Lymph # Baso # Seg Neutrophils % Lymphocytes % (Manual) Monocytes % (Manual) 9.0 H Nucleated RBC % 1.0 H Seg Neutrophils # Seg Neutrophils # Man Monocytes # (Manual) 0.9 H PT 15.8 H INR 1.20 H Activated Clotting Time POC ABG pH POC ABG pCO2 POC ABG pO2 Sodium Potassium 2.7 L* Chloride 95.3 L Carbon Dioxide 17 L BUN Creatinine Glucose 435 H POC Glucose Calcium Magnesium Direct Bilirubin AST ALT Alkaline Phosphatase Total Creatine Kinase CK-MB (CK-2) CK-MB (CK-2) Rel Index Troponin T C-Reactive Protein Total Protein 6.1 L Albumin 3.5 L Triglycerides Ur Specific [place] Urine WBC (Auto) 03/29/17 03/29/17 03/29/17 12:34 13:10 13:25 WBC RBC Hgb Hct MCV MCH Plt Count Lymph % (Auto) Eos % (Auto) Baso % (Auto) Lymph # Baso # Seg Neutrophils % Lymphocytes % (Manual) Monocytes % (Manual) Nucleated RBC % Seg Neutrophils # Seg Neutrophils # Man Monocytes # (Manual) PT INR Activated Clotting Time 142 H 169 H 175 H POC ABG pH POC ABG pCO2 POC ABG pO2 Sodium Potassium Chloride Carbon Dioxide BUN Creatinine Glucose POC Glucose Calcium Magnesium Direct Bilirubin AST ALT Alkaline Phosphatase Total Creatine Kinase CK-MB (CK-2) CK-MB (CK-2) Rel Index Troponin T C-Reactive Protein Total Protein Albumin Triglycerides Ur Specific [place] Urine WBC (Auto) 03/29/17 03/29/17 03/29/17 14:50 15:18 19:52 WBC RBC Hgb Hct MCV MCH Plt Count Lymph % (Auto) Eos % (Auto) Baso % (Auto) Lymph # Baso # Seg Neutrophils % Lymphocytes % (Manual) Monocytes % (Manual) Nucleated RBC % Seg Neutrophils # Seg Neutrophils # Man Monocytes # (Manual) PT INR Activated Clotting Time 175 H POC ABG pH 7.293 L POC ABG pCO2 POC ABG pO2 602 H Sodium Potassium Chloride Carbon Dioxide BUN Creatinine Glucose POC Glucose Calcium Magnesium Direct Bilirubin AST ALT Alkaline Phosphatase Total Creatine Kinase 7263 H CK-MB (CK-2) > 300.0 H CK-MB (CK-2) Rel Index 4.1 H Troponin T 8.080 H* D C-Reactive Protein Total Protein Albumin Triglycerides 195 H Ur Specific [place] Urine WBC (Auto) 03/30/17 03/30/17 03/30/17 03:50 03:50 06:19 WBC 19.5 H RBC Hgb Hct MCV MCH Plt Count Lymph % (Auto) Eos % (Auto) Baso % (Auto) Lymph # Baso # Seg Neutrophils % Lymphocytes % (Manual) 7.0 L Monocytes % (Manual) Nucleated RBC % Seg Neutrophils # Seg Neutrophils # Man 12.7 H Monocytes # (Manual) 1.4 H PT INR Activated Clotting Time POC ABG pH POC ABG pCO2 28.2 L POC ABG pO2 108 H Sodium Potassium Chloride 108.9 H Carbon Dioxide 15 L BUN 25 H Creatinine Glucose 158 H POC Glucose Calcium 8.1 L Magnesium Direct Bilirubin AST ALT Alkaline Phosphatase Total Creatine Kinase 7963 H CK-MB (CK-2) > 300.0 H CK-MB (CK-2) Rel Index Troponin T 6.850 H* C-Reactive Protein Total Protein Albumin Triglycerides Ur Specific [place] Urine WBC (Auto) 03/30/17 03/30/17 03/31/17 09:45 16:04 02:19 WBC RBC Hgb Hct MCV MCH Plt Count Lymph % (Auto) Eos % (Auto) Baso % (Auto) Lymph # Baso # Seg Neutrophils % Lymphocytes % (Manual) Monocytes % (Manual) Nucleated RBC % Seg Neutrophils # Seg Neutrophils # Man Monocytes # (Manual) PT INR Activated Clotting Time POC ABG pH POC ABG pCO2 POC ABG pO2 Sodium Potassium Chloride Carbon Dioxide BUN Creatinine Glucose POC Glucose 137 H Calcium Magnesium Direct Bilirubin AST ALT Alkaline Phosphatase Total Creatine Kinase CK-MB (CK-2) CK-MB (CK-2) Rel Index Troponin T C-Reactive Protein 21.80 H Total Protein Albumin Triglycerides Ur Specific [place] 1.031 H Urine WBC (Auto) 03/31/17 03/31/17 03/31/17 03:57 06:54 09:22 WBC RBC Hgb Hct MCV MCH Plt Count Lymph % (Auto) Eos % (Auto) Baso % (Auto) Lymph # Baso # Seg Neutrophils % Lymphocytes % (Manual) Monocytes % (Manual) Nucleated RBC % Seg Neutrophils # Seg Neutrophils # Man Monocytes # (Manual) PT INR Activated Clotting Time POC ABG pH 7.475 H POC ABG pCO2 25.4 L POC ABG pO2 62 L Sodium Potassium Chloride Carbon Dioxide 19 L BUN 22 H Creatinine 0.6 L Glucose 148 H POC Glucose 143 H Calcium 8.3 L Magnesium Direct Bilirubin AST ALT Alkaline Phosphatase Total Creatine Kinase CK-MB (CK-2) CK-MB (CK-2) Rel Index Troponin T C-Reactive Protein Total Protein Albumin Triglycerides Ur Specific [place] Urine WBC (Auto) 03/31/17 03/31/17 03/31/17 11:40 17:47 23:38 WBC RBC Hgb Hct MCV MCH Plt Count Lymph % (Auto) Eos % (Auto) Baso % (Auto) Lymph # Baso # Seg Neutrophils % Lymphocytes % (Manual) Monocytes % (Manual) Nucleated RBC % Seg Neutrophils # Seg Neutrophils # Man Monocytes # (Manual) PT INR Activated Clotting Time POC ABG pH POC ABG pCO2 POC ABG pO2 Sodium Potassium Chloride Carbon Dioxide BUN Creatinine Glucose POC Glucose 127 H 137 H 148 H Calcium Magnesium Direct Bilirubin AST ALT Alkaline Phosphatase Total Creatine Kinase CK-MB (CK-2) CK-MB (CK-2) Rel Index Troponin T C-Reactive Protein Total Protein Albumin Triglycerides Ur Specific [place] Urine WBC (Auto) 04/01/17 04/01/17 04/01/17 04:29 05:01 11:54 WBC RBC Hgb Hct MCV MCH Plt Count Lymph % (Auto) Eos % (Auto) Baso % (Auto) Lymph # Baso # Seg Neutrophils % Lymphocytes % (Manual) Monocytes % (Manual) Nucleated RBC % Seg Neutrophils # Seg Neutrophils # Man Monocytes # (Manual) PT INR Activated Clotting Time POC ABG pH 7.513 H POC ABG pCO2 22.1 L POC ABG pO2 64 L Sodium Potassium Chloride Carbon Dioxide BUN Creatinine Glucose POC Glucose 121 H Calcium Magnesium Direct Bilirubin AST ALT Alkaline Phosphatase Total Creatine Kinase CK-MB (CK-2) CK-MB (CK-2) Rel Index Troponin T C-Reactive Protein Total Protein Albumin Triglycerides 151 H Ur Specific [place] Urine WBC (Auto) 04/01/17 04/02/17 04/02/17 18:17 00:11 04:52 WBC RBC Hgb Hct MCV MCH Plt Count Lymph % (Auto) Eos % (Auto) Baso % (Auto) Lymph # Baso # Seg Neutrophils % Lymphocytes % (Manual) Monocytes % (Manual) Nucleated RBC % Seg Neutrophils # Seg Neutrophils # Man Monocytes # (Manual) PT INR Activated Clotting Time POC ABG pH 7.524 H POC ABG pCO2 25.5 L POC ABG pO2 66 L Sodium Potassium Chloride Carbon Dioxide BUN Creatinine Glucose POC Glucose 117 H 122 H Calcium Magnesium Direct Bilirubin AST ALT Alkaline Phosphatase Total Creatine Kinase CK-MB (CK-2) CK-MB (CK-2) Rel Index Troponin T C-Reactive Protein Total Protein Albumin Triglycerides Ur Specific [place] Urine WBC (Auto) 04/02/17 04/02/17 04/02/17 05:18 10:41 12:19 WBC RBC Hgb Hct MCV MCH Plt Count Lymph % (Auto) Eos % (Auto) Baso % (Auto) Lymph # Baso # Seg Neutrophils % Lymphocytes % (Manual) Monocytes % (Manual) Nucleated RBC % Seg Neutrophils # Seg Neutrophils # Man Monocytes # (Manual) PT INR Activated Clotting Time POC ABG pH 7.534 H POC ABG pCO2 27.4 L POC ABG pO2 Sodium Potassium Chloride Carbon Dioxide BUN Creatinine Glucose POC Glucose 132 H 129 H Calcium Magnesium Direct Bilirubin AST ALT Alkaline Phosphatase Total Creatine Kinase CK-MB (CK-2) CK-MB (CK-2) Rel Index Troponin T C-Reactive Protein Total Protein Albumin Triglycerides Ur Specific [place] Urine WBC (Auto) 04/02/17 04/03/17 04/03/17 18:05 00:08 05:09 WBC RBC Hgb Hct MCV MCH Plt Count Lymph % (Auto) Eos % (Auto) Baso % (Auto) Lymph # Baso # Seg Neutrophils % Lymphocytes % (Manual) Monocytes % (Manual) Nucleated RBC % Seg Neutrophils # Seg Neutrophils # Man Monocytes # (Manual) PT INR Activated Clotting Time POC ABG pH 7.455 H POC ABG pCO2 33.2 L POC ABG pO2 120 H Sodium Potassium Chloride Carbon Dioxide BUN Creatinine Glucose POC Glucose 136 H 128 H Calcium Magnesium Direct Bilirubin AST ALT Alkaline Phosphatase Total Creatine Kinase CK-MB (CK-2) CK-MB (CK-2) Rel Index Troponin T C-Reactive Protein Total Protein Albumin Triglycerides Ur Specific [place] Urine WBC (Auto) 04/03/17 04/03/17 04/03/17 06:32 11:54 12:16 WBC 11.9 H RBC Hgb Hct MCV MCH Plt Count 125 L Lymph % (Auto) 4.8 L Eos % (Auto) Baso % (Auto) Lymph # 0.6 L Baso # Seg Neutrophils % 86.7 H Lymphocytes % (Manual) Monocytes % (Manual) Nucleated RBC % Seg Neutrophils # 10.3 H Seg Neutrophils # Man Monocytes # (Manual) PT INR Activated Clotting Time POC ABG pH POC ABG pCO2 POC ABG pO2 Sodium Potassium Chloride Carbon Dioxide BUN Creatinine Glucose POC Glucose 138 H 143 H Calcium Magnesium Direct Bilirubin AST ALT Alkaline Phosphatase Total Creatine Kinase CK-MB (CK-2) CK-MB (CK-2) Rel Index Troponin T C-Reactive Protein Total Protein Albumin Triglycerides Ur Specific [place] Urine WBC (Auto) 04/03/17 04/03/17 04/04/17 17:33 23:59 04:34 WBC RBC Hgb Hct MCV MCH Plt Count Lymph % (Auto) Eos % (Auto) Baso % (Auto) Lymph # Baso # Seg Neutrophils % Lymphocytes % (Manual) Monocytes % (Manual) Nucleated RBC % Seg Neutrophils # Seg Neutrophils # Man Monocytes # (Manual) PT INR Activated Clotting Time POC ABG pH 7.457 H POC ABG pCO2 29.8 L POC ABG pO2 76 L Sodium Potassium Chloride Carbon Dioxide BUN Creatinine Glucose POC Glucose 130 H 155 H Calcium Magnesium Direct Bilirubin AST ALT Alkaline Phosphatase Total Creatine Kinase CK-MB (CK-2) CK-MB (CK-2) Rel Index Troponin T C-Reactive Protein Total Protein Albumin Triglycerides Ur Specific [place] Urine WBC (Auto) 04/04/17 04/04/17 04/04/17 05:27 12:22 18:18 WBC RBC Hgb Hct MCV MCH Plt Count Lymph % (Auto) Eos % (Auto) Baso % (Auto) Lymph # Baso # Seg Neutrophils % Lymphocytes % (Manual) Monocytes % (Manual) Nucleated RBC % Seg Neutrophils # Seg Neutrophils # Man Monocytes # (Manual) PT INR Activated Clotting Time POC ABG pH POC ABG pCO2 POC ABG pO2 Sodium Potassium Chloride Carbon Dioxide BUN Creatinine Glucose POC Glucose 164 H 146 H 130 H Calcium Magnesium Direct Bilirubin AST ALT Alkaline Phosphatase Total Creatine Kinase CK-MB (CK-2) CK-MB (CK-2) Rel Index Troponin T C-Reactive Protein Total Protein Albumin Triglycerides Ur Specific [place] Urine WBC (Auto) 04/05/17 04/05/17 04/05/17 04:43 05:28 11:36 WBC RBC Hgb Hct MCV MCH Plt Count Lymph % (Auto) Eos % (Auto) Baso % (Auto) Lymph # Baso # Seg Neutrophils % Lymphocytes % (Manual) Monocytes % (Manual) Nucleated RBC % Seg Neutrophils # Seg Neutrophils # Man Monocytes # (Manual) PT INR Activated Clotting Time POC ABG pH 7.479 H POC ABG pCO2 33.5 L POC ABG pO2 76 L Sodium Potassium Chloride Carbon Dioxide BUN Creatinine Glucose POC Glucose 145 H 136 H Calcium Magnesium Direct Bilirubin AST ALT Alkaline Phosphatase Total Creatine Kinase CK-MB (CK-2) CK-MB (CK-2) Rel Index Troponin T C-Reactive Protein Total Protein Albumin Triglycerides Ur Specific [place] Urine WBC (Auto) 04/05/17 04/06/17 04/06/17 17:58 00:16 05:26 WBC RBC Hgb Hct MCV MCH Plt Count Lymph % (Auto) Eos % (Auto) Baso % (Auto) Lymph # Baso # Seg Neutrophils % Lymphocytes % (Manual) Monocytes % (Manual) Nucleated RBC % Seg Neutrophils # Seg Neutrophils # Man Monocytes # (Manual) PT INR Activated Clotting Time POC ABG pH POC ABG pCO2 POC ABG pO2 Sodium Potassium Chloride Carbon Dioxide BUN Creatinine Glucose POC Glucose 130 H 159 H 146 H Calcium Magnesium Direct Bilirubin AST ALT Alkaline Phosphatase Total Creatine Kinase CK-MB (CK-2) CK-MB (CK-2) Rel Index Troponin T C-Reactive Protein Total Protein Albumin Triglycerides Ur Specific [place] Urine WBC (Auto) 04/06/17 04/06/17 04/07/17 13:11 16:54 11:45 WBC RBC Hgb Hct MCV MCH Plt Count Lymph % (Auto) Eos % (Auto) Baso % (Auto) Lymph # Baso # Seg Neutrophils % Lymphocytes % (Manual) Monocytes % (Manual) Nucleated RBC % Seg Neutrophils # Seg Neutrophils # Man Monocytes # (Manual) PT INR Activated Clotting Time POC ABG pH 7.517 H POC ABG pCO2 32.1 L POC ABG pO2 Sodium Potassium Chloride Carbon Dioxide BUN Creatinine Glucose POC Glucose 132 H 123 H Calcium Magnesium Direct Bilirubin AST ALT Alkaline Phosphatase Total Creatine Kinase CK-MB (CK-2) CK-MB (CK-2) Rel Index Troponin T C-Reactive Protein Total Protein Albumin Triglycerides Ur Specific [place] Urine WBC (Auto) 04/07/17 04/07/17 04/07/17 12:51 17:40 23:55 WBC RBC Hgb Hct MCV MCH Plt Count Lymph % (Auto) Eos % (Auto) Baso % (Auto) Lymph # Baso # Seg Neutrophils % Lymphocytes % (Manual) Monocytes % (Manual) Nucleated RBC % Seg Neutrophils # Seg Neutrophils # Man Monocytes # (Manual) PT INR Activated Clotting Time POC ABG pH POC ABG pCO2 POC ABG pO2 Sodium Potassium Chloride Carbon Dioxide BUN Creatinine Glucose POC Glucose 138 H 154 H 143 H Calcium Magnesium Direct Bilirubin AST ALT Alkaline Phosphatase Total Creatine Kinase CK-MB (CK-2) CK-MB (CK-2) Rel Index Troponin T C-Reactive Protein Total Protein Albumin Triglycerides Ur Specific [place] Urine WBC (Auto) 04/08/17 04/08/17 04/08/17 05:27 11:14 17:44 WBC RBC Hgb Hct MCV MCH Plt Count Lymph % (Auto) Eos % (Auto) Baso % (Auto) Lymph # Baso # Seg Neutrophils % Lymphocytes % (Manual) Monocytes % (Manual) Nucleated RBC % Seg Neutrophils # Seg Neutrophils # Man Monocytes # (Manual) PT INR Activated Clotting Time POC ABG pH POC ABG pCO2 POC ABG pO2 Sodium Potassium Chloride Carbon Dioxide BUN Creatinine Glucose POC Glucose 142 H 153 H 129 H Calcium Magnesium Direct Bilirubin AST ALT Alkaline Phosphatase Total Creatine Kinase CK-MB (CK-2) CK-MB (CK-2) Rel Index Troponin T C-Reactive Protein Total Protein Albumin Triglycerides Ur Specific [place] Urine WBC (Auto) 04/09/17 04/09/17 04/09/17 08:20 11:21 17:37 WBC RBC Hgb Hct MCV MCH Plt Count Lymph % (Auto) Eos % (Auto) Baso % (Auto) Lymph # Baso # Seg Neutrophils % Lymphocytes % (Manual) Monocytes % (Manual) Nucleated RBC % Seg Neutrophils # Seg Neutrophils # Man Monocytes # (Manual) PT INR Activated Clotting Time POC ABG pH POC ABG pCO2 POC ABG pO2 Sodium 147 H Potassium Chloride 108.8 H Carbon Dioxide BUN 39 H Creatinine 0.5 L Glucose 138 H POC Glucose 152 H 109 H Calcium Magnesium Direct Bilirubin AST ALT Alkaline Phosphatase Total Creatine Kinase CK-MB (CK-2) CK-MB (CK-2) Rel Index Troponin T C-Reactive Protein Total Protein Albumin Triglycerides Ur Specific [place] Urine WBC (Auto) 04/10/17 04/10/17 04/10/17 00:13 04:16 04:16 WBC RBC Hgb 11.5 L Hct MCV 96 H MCH Plt Count 103 L Lymph % (Auto) 11.1 L Eos % (Auto) Baso % (Auto) Lymph # Baso # Seg Neutrophils % 81.5 H Lymphocytes % (Manual) Monocytes % (Manual) Nucleated RBC % Seg Neutrophils # 8.8 H Seg Neutrophils # Man Monocytes # (Manual) PT INR Activated Clotting Time POC ABG pH POC ABG pCO2 POC ABG pO2 Sodium 148 H Potassium Chloride 109.0 H Carbon Dioxide BUN 36 H Creatinine 0.5 L Glucose 131 H POC Glucose 127 H Calcium 8.1 L Magnesium 2.40 H Direct Bilirubin AST 206 H ALT 228 H Alkaline Phosphatase 178 H Total Creatine Kinase CK-MB (CK-2) CK-MB (CK-2) Rel Index Troponin T C-Reactive Protein Total Protein Albumin 2.8 L Triglycerides Ur Specific [place] Urine WBC (Auto) 04/10/17 04/10/17 04/10/17 06:01 11:57 18:27 WBC RBC Hgb Hct MCV MCH Plt Count Lymph % (Auto) Eos % (Auto) Baso % (Auto) Lymph # Baso # Seg Neutrophils % Lymphocytes % (Manual) Monocytes % (Manual) Nucleated RBC % Seg Neutrophils # Seg Neutrophils # Man Monocytes # (Manual) PT INR Activated Clotting Time POC ABG pH POC ABG pCO2 POC ABG pO2 Sodium Potassium Chloride Carbon Dioxide BUN Creatinine Glucose POC Glucose 108 H 154 H 130 H Calcium Magnesium Direct Bilirubin AST ALT Alkaline Phosphatase Total Creatine Kinase CK-MB (CK-2) CK-MB (CK-2) Rel Index Troponin T C-Reactive Protein Total Protein Albumin Triglycerides Ur Specific [place] Urine WBC (Auto) 04/11/17 04/11/17 04/12/17 12:25 17:10 00:22 WBC RBC Hgb Hct MCV MCH Plt Count Lymph % (Auto) Eos % (Auto) Baso % (Auto) Lymph # Baso # Seg Neutrophils % Lymphocytes % (Manual) Monocytes % (Manual) Nucleated RBC % Seg Neutrophils # Seg Neutrophils # Man Monocytes # (Manual) PT INR Activated Clotting Time POC ABG pH POC ABG pCO2 POC ABG pO2 Sodium Potassium Chloride Carbon Dioxide BUN Creatinine Glucose POC Glucose 107 H 129 H 128 H Calcium Magnesium Direct Bilirubin AST ALT Alkaline Phosphatase Total Creatine Kinase CK-MB (CK-2) CK-MB (CK-2) Rel Index Troponin T C-Reactive Protein Total Protein Albumin Triglycerides Ur Specific [place] Urine WBC (Auto) 04/12/17 04/12/17 04/12/17 05:00 11:57 17:47 WBC RBC Hgb Hct MCV MCH Plt Count Lymph % (Auto) Eos % (Auto) Baso % (Auto) Lymph # Baso # Seg Neutrophils % Lymphocytes % (Manual) Monocytes % (Manual) Nucleated RBC % Seg Neutrophils # Seg Neutrophils # Man Monocytes # (Manual) PT INR Activated Clotting Time POC ABG pH POC ABG pCO2 POC ABG pO2 Sodium Potassium Chloride Carbon Dioxide BUN Creatinine Glucose POC Glucose 140 H 142 H Calcium Magnesium Direct Bilirubin AST 158 H ALT 184 H Alkaline Phosphatase 170 H Total Creatine Kinase CK-MB (CK-2) CK-MB (CK-2) Rel Index Troponin T C-Reactive Protein Total Protein Albumin 2.8 L Triglycerides Ur Specific [place] Urine WBC (Auto) 04/12/17 04/12/17 04/13/17 21:36 21:36 01:37 WBC RBC Hgb Hct MCV MCH Plt Count Lymph % (Auto) Eos % (Auto) Baso % (Auto) Lymph # Baso # Seg Neutrophils % Lymphocytes % (Manual) Monocytes % (Manual) Nucleated RBC % Seg Neutrophils # Seg Neutrophils # Man Monocytes # (Manual) PT INR Activated Clotting Time POC ABG pH POC ABG pCO2 POC ABG pO2 Sodium Potassium Chloride Carbon Dioxide BUN Creatinine Glucose POC Glucose 126 H Calcium Magnesium Direct Bilirubin AST ALT Alkaline Phosphatase Total Creatine Kinase 1404 H CK-MB (CK-2) 8.0 H CK-MB (CK-2) Rel Index Troponin T 0.767 H* C-Reactive Protein Total Protein Albumin Triglycerides Ur Specific [place] Urine WBC (Auto) 04/13/17 04/13/17 04/13/17 04:45 04:52 12:17 WBC RBC Hgb Hct MCV MCH Plt Count Lymph % (Auto) Eos % (Auto) Baso % (Auto) Lymph # Baso # Seg Neutrophils % Lymphocytes % (Manual) Monocytes % (Manual) Nucleated RBC % Seg Neutrophils # Seg Neutrophils # Man Monocytes # (Manual) PT INR Activated Clotting Time POC ABG pH POC ABG pCO2 POC ABG pO2 Sodium 148 H Potassium Chloride 112.8 H Carbon Dioxide BUN 33 H Creatinine 0.4 L Glucose 121 H POC Glucose 126 H 149 H Calcium Magnesium Direct Bilirubin AST 160 H ALT 189 H Alkaline Phosphatase 166 H Total Creatine Kinase CK-MB (CK-2) CK-MB (CK-2) Rel Index Troponin T C-Reactive Protein Total Protein Albumin 2.6 L Triglycerides Ur Specific [place] Urine WBC (Auto) 04/13/17 04/14/17 04/14/17 17:45 00:20 00:45 WBC RBC Hgb Hct MCV MCH Plt Count Lymph % (Auto) Eos % (Auto) Baso % (Auto) Lymph # Baso # Seg Neutrophils % Lymphocytes % (Manual) Monocytes % (Manual) Nucleated RBC % Seg Neutrophils # Seg Neutrophils # Man Monocytes # (Manual) PT INR Activated Clotting Time POC ABG pH POC ABG pCO2 POC ABG pO2 Sodium Potassium Chloride Carbon Dioxide BUN Creatinine Glucose POC Glucose 130 H 144 H 144 H Calcium Magnesium Direct Bilirubin AST ALT Alkaline Phosphatase Total Creatine Kinase CK-MB (CK-2) CK-MB (CK-2) Rel Index Troponin T C-Reactive Protein Total Protein Albumin Triglycerides Ur Specific [place] Urine WBC (Auto) 04/14/17 04/14/17 04/14/17 05:40 11:06 11:31 WBC RBC Hgb Hct MCV MCH Plt Count Lymph % (Auto) Eos % (Auto) Baso % (Auto) Lymph # Baso # Seg Neutrophils % Lymphocytes % (Manual) Monocytes % (Manual) Nucleated RBC % Seg Neutrophils # Seg Neutrophils # Man Monocytes # (Manual) PT INR Activated Clotting Time POC ABG pH POC ABG pCO2 POC ABG pO2 Sodium Potassium Chloride Carbon Dioxide BUN Creatinine Glucose POC Glucose 139 H 123 H Calcium Magnesium Direct Bilirubin AST ALT Alkaline Phosphatase Total Creatine Kinase CK-MB (CK-2) CK-MB (CK-2) Rel Index Troponin T C-Reactive Protein Total Protein Albumin Triglycerides Ur Specific [place] 1.033 H Urine WBC (Auto) > 182.0 H 04/14/17 04/14/17 04/15/17 18:00 23:52 05:15 WBC 12.5 H RBC 3.38 L Hgb 10.6 L Hct 32.7 L MCV 97 H MCH Plt Count 107 L Lymph % (Auto) 8.7 L Eos % (Auto) Baso % (Auto) Lymph # 1.1 L Baso # Seg Neutrophils % 86.1 H Lymphocytes % (Manual) Monocytes % (Manual) Nucleated RBC % Seg Neutrophils # 10.7 H Seg Neutrophils # Man Monocytes # (Manual) PT INR Activated Clotting Time POC ABG pH POC ABG pCO2 POC ABG pO2 Sodium Potassium Chloride Carbon Dioxide BUN Creatinine Glucose POC Glucose 133 H 133 H Calcium Magnesium Direct Bilirubin AST ALT Alkaline Phosphatase Total Creatine Kinase CK-MB (CK-2) CK-MB (CK-2) Rel Index Troponin T C-Reactive Protein Total Protein Albumin Triglycerides Ur Specific [place] Urine WBC (Auto) 04/15/17 04/15/17 04/15/17 05:15 05:25 11:50 WBC RBC Hgb Hct MCV MCH Plt Count Lymph % (Auto) Eos % (Auto) Baso % (Auto) Lymph # Baso # Seg Neutrophils % Lymphocytes % (Manual) Monocytes % (Manual) Nucleated RBC % Seg Neutrophils # Seg Neutrophils # Man Monocytes # (Manual) PT INR Activated Clotting Time POC ABG pH POC ABG pCO2 POC ABG pO2 Sodium 149 H Potassium 3.5 L Chloride 114.1 H Carbon Dioxide 21 L BUN 29 H Creatinine 0.4 L Glucose 128 H POC Glucose 133 H 107 H Calcium 8.3 L Magnesium Direct Bilirubin 0.4 H AST 149 H ALT 182 H Alkaline Phosphatase 143 H Total Creatine Kinase CK-MB (CK-2) CK-MB (CK-2) Rel Index Troponin T C-Reactive Protein Total Protein Albumin 2.5 L Triglycerides Ur Specific [place] Urine WBC (Auto) 04/15/17 04/16/17 04/16/17 16:55 00:02 03:17 WBC RBC 3.39 L Hgb 10.5 L Hct 32.4 L MCV 96 H MCH Plt Count 106 L Lymph % (Auto) 6.7 L Eos % (Auto) Baso % (Auto) Lymph # 0.6 L Baso # Seg Neutrophils % 86.8 H Lymphocytes % (Manual) Monocytes % (Manual) Nucleated RBC % Seg Neutrophils # 8.2 H Seg Neutrophils # Man Monocytes # (Manual) PT INR Activated Clotting Time POC ABG pH POC ABG pCO2 POC ABG pO2 Sodium Potassium Chloride Carbon Dioxide BUN Creatinine Glucose POC Glucose 146 H 148 H Calcium Magnesium Direct Bilirubin AST ALT Alkaline Phosphatase Total Creatine Kinase CK-MB (CK-2) CK-MB (CK-2) Rel Index Troponin T C-Reactive Protein Total Protein Albumin Triglycerides Ur Specific [place] Urine WBC (Auto) 04/16/17 04/16/17 04/16/17 03:17 05:19 11:13 WBC RBC Hgb Hct MCV MCH Plt Count Lymph % (Auto) Eos % (Auto) Baso % (Auto) Lymph # Baso # Seg Neutrophils % Lymphocytes % (Manual) Monocytes % (Manual) Nucleated RBC % Seg Neutrophils # Seg Neutrophils # Man Monocytes # (Manual) PT INR Activated Clotting Time POC ABG pH POC ABG pCO2 POC ABG pO2 Sodium 149 H Potassium Chloride 111.1 H Carbon Dioxide 20 L BUN 27 H Creatinine 0.3 L Glucose 156 H POC Glucose 171 H 169 H Calcium 8.3 L Magnesium Direct Bilirubin AST ALT Alkaline Phosphatase Total Creatine Kinase CK-MB (CK-2) CK-MB (CK-2) Rel Index Troponin T C-Reactive Protein Total Protein Albumin Triglycerides Ur Specific [place] Urine WBC (Auto) 04/16/17 04/17/17 04/17/17 17:03 00:00 05:09 WBC RBC Hgb Hct MCV MCH Plt Count Lymph % (Auto) Eos % (Auto) Baso % (Auto) Lymph # Baso # Seg Neutrophils % Lymphocytes % (Manual) Monocytes % (Manual) Nucleated RBC % Seg Neutrophils # Seg Neutrophils # Man Monocytes # (Manual) PT INR Activated Clotting Time POC ABG pH POC ABG pCO2 POC ABG pO2 Sodium Potassium Chloride Carbon Dioxide BUN Creatinine Glucose POC Glucose 151 H 165 H 145 H Calcium Magnesium Direct Bilirubin AST ALT Alkaline Phosphatase Total Creatine Kinase CK-MB (CK-2) CK-MB (CK-2) Rel Index Troponin T C-Reactive Protein Total Protein Albumin Triglycerides Ur Specific [place] Urine WBC (Auto) 04/17/17 04/17/17 04/18/17 11:38 17:47 00:01 WBC RBC Hgb Hct MCV MCH Plt Count Lymph % (Auto) Eos % (Auto) Baso % (Auto) Lymph # Baso # Seg Neutrophils % Lymphocytes % (Manual) Monocytes % (Manual) Nucleated RBC % Seg Neutrophils # Seg Neutrophils # Man Monocytes # (Manual) PT INR Activated Clotting Time POC ABG pH POC ABG pCO2 POC ABG pO2 Sodium Potassium Chloride Carbon Dioxide BUN Creatinine Glucose POC Glucose 170 H 161 H 131 H Calcium Magnesium Direct Bilirubin AST ALT Alkaline Phosphatase Total Creatine Kinase CK-MB (CK-2) CK-MB (CK-2) Rel Index Troponin T C-Reactive Protein Total Protein Albumin Triglycerides Ur Specific [place] Urine WBC (Auto) 04/18/17 04/18/17 04/18/17 03:55 03:55 05:30 WBC RBC 3.05 L Hgb 9.8 L Hct 29.0 L MCV 95 H MCH Plt Count 113 L Lymph % (Auto) Eos % (Auto) 5.3 H Baso % (Auto) Lymph # Baso # Seg Neutrophils % 71.5 H Lymphocytes % (Manual) Monocytes % (Manual) Nucleated RBC % Seg Neutrophils # Seg Neutrophils # Man Monocytes # (Manual) PT INR Activated Clotting Time POC ABG pH 7.460 H POC ABG pCO2 30.8 L POC ABG pO2 129 H Sodium Potassium Chloride Carbon Dioxide 21 L BUN 25 H Creatinine 0.4 L Glucose 123 H POC Glucose Calcium 8.3 L Magnesium Direct Bilirubin AST ALT Alkaline Phosphatase Total Creatine Kinase CK-MB (CK-2) CK-MB (CK-2) Rel Index Troponin T C-Reactive Protein Total Protein Albumin Triglycerides Ur Specific [place] Urine WBC (Auto) 04/18/17 04/18/17 04/19/17 17:10 23:40 04:36 WBC RBC 3.21 L Hgb 10.2 L Hct 30.4 L MCV 95 H MCH Plt Count 131 L Lymph % (Auto) 12.1 L Eos % (Auto) 4.7 H Baso % (Auto) 2.4 H Lymph # 0.9 L Baso # 0.2 H Seg Neutrophils % 75.0 H Lymphocytes % (Manual) Monocytes % (Manual) Nucleated RBC % Seg Neutrophils # Seg Neutrophils # Man Monocytes # (Manual) PT INR Activated Clotting Time POC ABG pH POC ABG pCO2 POC ABG pO2 Sodium Potassium Chloride Carbon Dioxide BUN Creatinine Glucose POC Glucose 135 H 157 H Calcium Magnesium Direct Bilirubin AST ALT Alkaline Phosphatase Total Creatine Kinase CK-MB (CK-2) CK-MB (CK-2) Rel Index Troponin T C-Reactive Protein Total Protein Albumin Triglycerides Ur Specific [place] Urine WBC (Auto) 04/19/17 04/19/17 04/19/17 04:36 05:12 06:50 WBC RBC Hgb Hct MCV MCH Plt Count Lymph % (Auto) Eos % (Auto) Baso % (Auto) Lymph # Baso # Seg Neutrophils % Lymphocytes % (Manual) Monocytes % (Manual) Nucleated RBC % Seg Neutrophils # Seg Neutrophils # Man Monocytes # (Manual) PT INR Activated Clotting Time POC ABG pH 7.516 H POC ABG pCO2 28.0 L POC ABG pO2 Sodium Potassium Chloride Carbon Dioxide 21 L BUN 23 H Creatinine 0.2 L Glucose 137 H POC Glucose 131 H Calcium 7.9 L Magnesium Direct Bilirubin AST ALT Alkaline Phosphatase Total Creatine Kinase CK-MB (CK-2) CK-MB (CK-2) Rel Index Troponin T C-Reactive Protein Total Protein Albumin Triglycerides Ur Specific [place] Urine WBC (Auto) 04/19/17 04/19/17 04/20/17 12:36 17:42 00:12 WBC RBC Hgb Hct MCV MCH Plt Count Lymph % (Auto) Eos % (Auto) Baso % (Auto) Lymph # Baso # Seg Neutrophils % Lymphocytes % (Manual) Monocytes % (Manual) Nucleated RBC % Seg Neutrophils # Seg Neutrophils # Man Monocytes # (Manual) PT INR Activated Clotting Time POC ABG pH POC ABG pCO2 POC ABG pO2 Sodium Potassium Chloride Carbon Dioxide BUN Creatinine Glucose POC Glucose 128 H 140 H 132 H Calcium Magnesium Direct Bilirubin AST ALT Alkaline Phosphatase Total Creatine Kinase CK-MB (CK-2) CK-MB (CK-2) Rel Index Troponin T C-Reactive Protein Total Protein Albumin Triglycerides Ur Specific [place] Urine WBC (Auto) 04/20/17 04/20/17 04/20/17 03:35 03:35 05:10 WBC RBC 3.34 L Hgb 10.4 L Hct 31.6 L MCV 95 H MCH Plt Count Lymph % (Auto) 12.9 L Eos % (Auto) Baso % (Auto) Lymph # Baso # Seg Neutrophils % 77.3 H Lymphocytes % (Manual) Monocytes % (Manual) Nucleated RBC % Seg Neutrophils # Seg Neutrophils # Man Monocytes # (Manual) PT INR Activated Clotting Time POC ABG pH POC ABG pCO2 POC ABG pO2 Sodium Potassium Chloride Carbon Dioxide BUN Creatinine 0.3 L Glucose 155 H POC Glucose 135 H Calcium 7.8 L Magnesium Direct Bilirubin AST ALT Alkaline Phosphatase Total Creatine Kinase CK-MB (CK-2) CK-MB (CK-2) Rel Index Troponin T C-Reactive Protein Total Protein Albumin Triglycerides Ur Specific [place] Urine WBC (Auto) 04/20/17 12:49 WBC RBC Hgb Hct MCV MCH Plt Count Lymph % (Auto) Eos % (Auto) Baso % (Auto) Lymph # Baso # Seg Neutrophils % Lymphocytes % (Manual) Monocytes % (Manual) Nucleated RBC % Seg Neutrophils # Seg Neutrophils # Man Monocytes # (Manual) PT INR Activated Clotting Time POC ABG pH POC ABG pCO2 POC ABG pO2 Sodium Potassium Chloride Carbon Dioxide BUN Creatinine Glucose POC Glucose 155 H Calcium Magnesium Direct Bilirubin AST ALT Alkaline Phosphatase Total Creatine Kinase CK-MB (CK-2) CK-MB (CK-2) Rel Index Troponin T C-Reactive Protein Total Protein Albumin Triglycerides Ur Specific [place] Urine WBC (Auto) Chest x-ray: report reviewed, image reviewed (CHF)
[2017-04-20] MEDS: LASIX PO SCH (14:26)
--- NOTE | 2017-04-20 14:47 | Progress Note ---
Assessment and Plan Out of hospital VF arrest Acute anterior STEMI s/p PCI of the LAD using BM stents deployed. reduced LVEF 30-35% by echocardiogram. DAPT resumed Respiratory failure on the vent via trach Anoxic brain injury Pneumonia: MRSA UTI and fever Elevated Transaminitis amiodarone and statins discontinued Conservative cardiac management Subjective Date of service: 04/20/17 Principal diagnosis: septic shock Interval history: Patient remains intubated, unresponsive on the vent. Objective Vital Signs Temp Pulse Pulse Resp BP Pulse Ox Pulse Ox 04/20/17 12:00 96.9 F L 89 89 22 96/67 100 04/20/17 11:00 87 25 H 97/56 04/20/17 10:31 86 100/66 98 04/20/17 10:00 91 H 25 H 96/58 96 04/20/17 09:34 92 H 103/67 04/20/17 09:00 92 H 26 H 98/71 04/20/17 08:00 98.5 F 88 88 25 H 107/71 100 04/20/17 07:28 98 04/20/17 07:23 90 26 H 100/67 95 04/20/17 07:00 87 26 H 100/67 04/20/17 06:05 97/55 04/20/17 06:00 88 26 H 101/65 04/20/17 05:00 91 H 27 H 98/60 98 04/20/17 04:00 105 H 31 H 96/58 94 04/20/17 03:34 102.5 F H 04/20/17 03:08 102 H 97/55 99 04/20/17 03:00 101 H 27 H 97/55 04/20/17 02:00 100 H 30 H 98/56 04/20/17 01:00 103 H 32 H 100/59 97 04/20/17 00:27 99/67 04/20/17 00:00 102 H 31 H 99/61 99 04/19/17 23:51 100 F H 04/19/17 23:27 102 H 100/62 99 04/19/17 23:00 102 H 30 H 100/62 96 04/19/17 22:04 96 H 26 H 98/61 98 04/19/17 22:00 97 H 26 H 95/58 04/19/17 21:55 97 H 27 H 98/61 99 04/19/17 21:00 94 H 29 H 92/55 04/19/17 20:10 100 04/19/17 20:00 98.8 F 99 H 96 H 35 H 98/67 99 04/19/17 19:42 91 H 25 H 99 04/19/17 19:15 92 H 93/50 98 04/19/17 18:00 97 H 28 H 92/54 96 04/19/17 17:00 107 H 36 H 110/60 95 04/19/17 16:00 101.9 F H 115 H 40 H 114/69 92 04/19/17 15:47 114 H 40 H 95 04/19/17 15:00 111 H 40 H 116/74 94 - Physical Examination General: Other (unresponsive on the vent) Cardiac: Positive: Reg Rate and Rhythm - Labs and Meds CBC 04/20/17 Range/Units 03:35 WBC 9.0 (4.5-11.0) K/mm3 RBC 3.34 L (3.65-5.03) M/mm3 Hgb 10.4 L (11.8-15.2) gm/dl Hct 31.6 L (35.5-45.6) % Plt Count 145 (140-440) K/mm3 Lymph # 1.2 (1.2-5.4) K/mm3 [place] # 0.5 (0.0-0.8) K/mm3 Eos # 0.3 (0.0-0.4) K/mm3 Baso # 0.1 (0.0-0.1) K/mm3 Comprehensive Metabolic Panel 04/20/17 Range/Units 03:35 Sodium 140 (137-145) mmol/L Potassium 3.7 (3.6-5.0) mmol/L Chloride 103.3 (98-107) mmol/L Carbon Dioxide 23 (22-30) mmol/L BUN 20 (9-20) mg/dL Creatinine 0.3 L (0.8-1.5) mg/dL Glucose 155 H (75-100) mg/dL Calcium 7.8 L (8.4-10.2) mg/dL
--- NOTE | 2017-04-20 15:48 | Progress Note ---
Assessment and Plan Assessment and plan: 46 YO Male with No PMH was admitted through emergency room with history of V. fib cardiac arrest status post CPR per ACLS protocol, acute respiratory failure vent dependent , had tracheostomy and PEG placement, awaiting LTAC evaluation and placement --Status post cardiac arrest: Status post CPR, --Anoxic brain injury; Poor prognosis, s/p trach and PEG --Acute hypoxic respiratory failure;s/p tracheostomy on vent --Acute anterior STEMI ; status post PCI , stable on cardiac medications per cardiology --Hypertension ; continue current antihypertensives and PRN medications --MRSA pneumonia /aspiration pneumonia , contact isolation, ID following, completed zyvox on 04/10 --Cardiogenic shock; resolved, off pressors --Hypokalemia /hypernatremia, Corrected --Tracheostomy care, PEG feeds --DVT prophylaxis; heparin --Full CODE STATUS --DC planning; multiple social issues, possible SNF/LTAC placement Patient has no payer source medicare disability application in process of being filled out by family Critical care time 31 minutes The high probability of a clinically significant, sudden or life threatening deterioration of the [Pulmonary, cardiac, renal] system(s) required my full and direct attention, intervention and personal management. The aggregate critical care time was [31] minutes. This time is in addition to time spent performing reported procedures but includes the following: [x] Data Review and interpretation [x] Patient assessment and monitoring of vital signs [x] Documentation [x] Medication orders and management History Interval history: Patient seen and examined in his room Medical records reviewed . Clinically no change, status post trach on ventilatory support Unresponsive, Thick secretions via trach tube No new events reported by nursing staff Bilateral infiltrate/pulmonary edema on chest x-ray, received Lasix Vital signs reviewed Hospitalist Physical - Constitutional Vitals: Temp Pulse Resp BP Pulse Ox 96.9 F L 93 H 28 H 100/71 99 04/20/17 12:00 04/20/17 14:00 04/20/17 14:00 04/20/17 14:00 04/20/17 14:00 General appearance: Present: no acute distress, well-nourished, other ( tracheostomy on ventilatory support) - EENT Eyes: Present: PERRL, EOM intact - Neck Neck: Present: supple, normal ROM - Respiratory Respiratory effort: normal Respiratory: bilateral: diminished, rhonchi, negative: rales, wheezing - Cardiovascular Rhythm: regular Heart Sounds: Present: S1 & S2 - Extremities Extremities: no ischemia Extremity abnormal: edema - Abdominal General gastrointestinal: soft, non-tender, non-distended, normal bowel sounds, other (PEG tube in place) - Integumentary Integumentary: Present: clear, warm - Psychiatric Psychiatric: other - Neurologic Neurologic: other (unresponsive) Results - Labs CBC & Chem 7: 04/20/17 03:35 04/20/17 03:35 Labs: Laboratory Last Values WBC 9.0 K/mm3 (4.5-11.0) 04/20/17 03:35 RBC 3.34 M/mm3 (3.65-5.03) L 04/20/17 03:35 Hgb 10.4 gm/dl (11.8-15.2) L 04/20/17 03:35 Hct 31.6 % (35.5-45.6) L 04/20/17 03:35 MCV 95 fl (84-94) H 04/20/17 03:35 MCH 31 pg (28-32) 04/20/17 03:35 MCHC 33 % (32-34) 04/20/17 03:35 RDW 14.3 % (13.2-15.2) 04/20/17 03:35 Plt Count 145 K/mm3 (140-440) 04/20/17 03:35 Lymph % (Auto) 12.9 % (13.4-35.0) L 04/20/17 03:35 [place] % (Auto) 6.1 % (0.0-7.3) 04/20/17 03:35 Eos % (Auto) 3.1 % (0.0-4.3) 04/20/17 03:35 Baso % (Auto) 0.6 % (0.0-1.8) 04/20/17 03:35 Lymph # 1.2 K/mm3 (1.2-5.4) 04/20/17 03:35 [place] # 0.5 K/mm3 (0.0-0.8) 04/20/17 03:35 Eos # 0.3 K/mm3 (0.0-0.4) 04/20/17 03:35 Baso # 0.1 K/mm3 (0.0-0.1) 04/20/17 03:35 Add Manual Diff Complete 03/30/17 03:50 Total Counted 100 03/30/17 03:50 Seg Neutrophils % 77.3 % (40.0-70.0) H 04/20/17 03:35 Seg Neuts % (Manual) 65.0 % (40.0-70.0) 03/30/17 03:50 Band Neutrophils % 17.0 % 03/30/17 03:50 Lymphocytes % (Manual) 7.0 % (13.4-35.0) L 03/30/17 03:50 Reactive Lymphs % (Man) 0 % 03/30/17 03:50 Monocytes % (Manual) 7.0 % (0.0-7.3) 03/30/17 03:50 Eosinophils % (Manual) 0 % (0.0-4.3) 03/30/17 03:50 Basophils % (Manual) 0 % (0.0-1.8) 03/30/17 03:50 Metamyelocytes % 4.0 % 03/30/17 03:50 Myelocytes % 0 % 03/30/17 03:50 Promyelocytes % 0 % 03/30/17 03:50 Blast Cells % 0 % 03/30/17 03:50 Nucleated RBC % Not Reportable 03/30/17 03:50 Seg Neutrophils # 7.0 K/mm3 (1.8-7.7) 04/20/17 03:35 Seg Neutrophils # Man 12.7 K/mm3 (1.8-7.7) H 03/30/17 03:50 Band Neutrophils # 3.3 K/mm3 03/30/17 03:50 Lymphocytes # (Manual) 1.4 K/mm3 (1.2-5.4) 03/30/17 03:50 Abs React Lymphs (Man) 0.0 K/mm3 03/30/17 03:50 Monocytes # (Manual) 1.4 K/mm3 (0.0-0.8) H 03/30/17 03:50 Eosinophils # (Manual) 0.0 K/mm3 (0.0-0.4) 03/30/17 03:50 Basophils # (Manual) 0.0 K/mm3 (0.0-0.1) 03/30/17 03:50 Metamyelocytes # 0.8 K/mm3 03/30/17 03:50 Myelocytes # 0.0 K/mm3 03/30/17 03:50 Promyelocytes # 0.0 K/mm3 03/30/17 03:50 Blast Cells # 0.0 K/mm3 03/30/17 03:50 WBC Morphology Not Reportable 03/30/17 03:50 Hypersegmented Neuts Not Reportable 03/30/17 03:50 Hyposegmented Neuts Not Reportable 03/30/17 03:50 Hypogranular Neuts Not Reportable 03/30/17 03:50 Smudge Cells Not Reportable 03/30/17 03:50 Toxic Granulation Not Reportable 03/30/17 03:50 Toxic Vacuolation Not Reportable 03/30/17 03:50 Dohle Bodies Not Reportable 03/30/17 03:50 Pelger-Huet Anomaly Not Reportable 03/30/17 03:50 Sherry Rods Not Reportable 03/30/17 03:50 Platelet Estimate Appears normal 03/30/17 03:50 Clumped Platelets Not Reportable 03/30/17 03:50 Plt Clumps, EDTA Not Reportable 03/30/17 03:50 Large Platelets Not Reportable 03/30/17 03:50 Giant Platelets Not Reportable 03/30/17 03:50 Platelet Satelliting Not Reportable 03/30/17 03:50 Plt Morphology Comment Not Reportable 03/30/17 03:50 RBC Morphology Not Reportable 03/30/17 03:50 Dimorphic RBCs Not Reportable 03/30/17 03:50 Polychromasia Not Reportable 03/30/17 03:50 Hypochromasia Not Reportable 03/30/17 03:50 Poikilocytosis Not Reportable 03/30/17 03:50 Anisocytosis Few 03/30/17 03:50 Microcytosis Not Reportable 03/30/17 03:50 Macrocytosis Not Reportable 03/30/17 03:50 Spherocytes Not Reportable 03/30/17 03:50 Pappenheimer Bodies Not Reportable 03/30/17 03:50 Sickle Cells Not Reportable 03/30/17 03:50 Target Cells Not Reportable 03/30/17 03:50 Tear Drop Cells Not Reportable 03/30/17 03:50 Ovalocytes Not Reportable 03/30/17 03:50 Helmet Cells Not Reportable 03/30/17 03:50 [place] Bodies Not Reportable 03/30/17 03:50 [place] Rings Not Reportable 03/30/17 03:50 [place] Cells Not Reportable 03/30/17 03:50 Bite Cells Not Reportable 03/30/17 03:50 Crenated Cell Not Reportable 03/30/17 03:50 Elliptocytes Not Reportable 03/30/17 03:50 Acanthocytes (Spur) Not Reportable 03/30/17 03:50 Rouleaux Not Reportable 03/30/17 03:50 Hemoglobin C Crystals Not Reportable 03/30/17 03:50 Schistocytes Not Reportable 03/30/17 03:50 Malaria parasites Not Reportable 03/30/17 03:50 Jermaine Bodies Not Reportable 03/30/17 03:50 Hem Pathologist Commnt No 03/30/17 03:50 PT 14.9 Sec. (12.2-14.9) 04/10/17 04:16 INR 1.11 (0.87-1.13) 04/10/17 04:16 APTT 27.8 Sec. (24.2-36.6) 04/10/17 04:16 Activated Clotting Time 92 (74-137) 03/29/17 17:47 POC ABG pH 7.516 (7.35-7.45) H 04/19/17 06:50 POC ABG pCO2 28.0 (35-45) L 04/19/17 06:50 POC ABG pO2 81 (80-105) 04/19/17 06:50 POC ABG HCO3 22.7 04/19/17 06:50 POC ABG Total CO2 24 04/19/17 06:50 POC ABG O2 Sat 97 04/19/17 06:50 POC ABG Base Excess 0 04/19/17 06:50 FiO2 30 % 04/19/17 06:50 Sodium 140 mmol/L (137-145) 04/20/17 03:35 Potassium 3.7 mmol/L (3.6-5.0) 04/20/17 03:35 Chloride 103.3 mmol/L (98-107) 04/20/17 03:35 Carbon Dioxide 23 mmol/L (22-30) 04/20/17 03:35 Anion Gap 17 mmol/L 04/20/17 03:35 BUN 20 mg/dL (9-20) 04/20/17 03:35 Creatinine 0.3 mg/dL (0.8-1.5) L 04/20/17 03:35 Estimated GFR > 60 ml/min 04/20/17 03:35 BUN/Creatinine Ratio 67 % 04/20/17 03:35 Glucose 155 mg/dL (75-100) H 04/20/17 03:35 POC Glucose 155 (70-105) H 04/20/17 12:49 Calcium 7.8 mg/dL (8.4-10.2) L 04/20/17 03:35 Phosphorus 3.50 mg/dL (2.5-4.5) 04/13/17 04:45 Magnesium 1.90 mg/dL (1.7-2.3) 04/18/17 03:55 Total Bilirubin 1.00 mg/dL (0.1-1.2) 04/15/17 05:15 Direct Bilirubin 0.4 mg/dL (0-0.2) H 04/15/17 05:15 Indirect Bilirubin 0.6 mg/dL 04/15/17 05:15 AST 149 units/L (5-40) H 04/15/17 05:15 ALT 182 units/L (7-56) H 04/15/17 05:15 Alkaline Phosphatase 143 units/L (35-129) H 04/15/17 05:15 Total Creatine Kinase 1404 units/L (55-170) H 04/12/17 21:36 CK-MB (CK-2) 8.0 ng/mL (0.0-4.0) H 04/12/17 21:36 CK-MB (CK-2) Rel Index 0.5 (0-4) 04/12/17 21:36 Troponin T 0.767 ng/mL (0.00-0.029) H* 04/12/17 21:36 C-Reactive Protein 21.80 mg/dL (0.00-1.30) H 03/30/17 16:04 Total Protein 6.4 g/dL (6.3-8.2) 04/15/17 05:15 Albumin 2.5 g/dL (3.9-5) L 04/15/17 05:15 Albumin/Globulin Ratio 0.6 % 04/15/17 05:15 Triglycerides 151 mg/dL (2-149) H 04/01/17 04:29 Cholesterol 164 mg/dL (50-199) 03/29/17 19:52 LDL Cholesterol Direct 81 mg/dL (50-130) 03/29/17 19:52 HDL Cholesterol 44 mg/dL (40-59) 03/29/17 19:52 Cholesterol/HDL Ratio 3.72 % 03/29/17 19:52 Urine Color [place] (Yellow) 04/14/17 11:06 Urine Turbidity Slightly-cloudy (Clear) 04/14/17 11:06 Urine pH 5.0 (5.0-7.0) 04/14/17 11:06 Ur Specific [place] 1.033 (1.003-1.030) H 04/14/17 11:06 Urine Protein 100 mg/dl mg/dL (Negative) 04/14/17 11:06 Urine Glucose (UA) Neg mg/dL (Negative) 04/14/17 11:06 Urine Ketones Neg mg/dL (Negative) 04/14/17 11:06 Urine Blood Lg (Negative) 04/14/17 11:06 Urine Nitrite Pos (Negative) 04/14/17 11:06 Urine Bilirubin Neg (Negative) 04/14/17 11:06 Urine Urobilinogen 4.0 mg/dL (<2.0) 04/14/17 11:06 Ur Leukocyte Esterase Mod (Negative) 04/14/17 11:06 Urine WBC (Auto) > 182.0 /HPF (0.0-6.0) H 04/14/17 11:06 Urine RBC (Auto) > 182.0 /HPF (0.0-6.0) 04/14/17 11:06 Amorphous Crystals 1+ 03/30/17 09:45 Urine Mucus Few /HPF 04/14/17 11:06 Urine Opiates Screen Presumptive negative 03/30/17 09:45 Urine Methadone Screen Presumptive negative 03/30/17 09:45 Ur Barbiturates Screen Presumptive negative 03/30/17 09:45 Ur Phencyclidine Scrn Presumptive negative 03/30/17 09:45 Ur Amphetamines Screen Presumptive positive 03/30/17 09:45 U Benzodiazepines Scrn Presumptive positive 03/30/17 09:45 Urine Cocaine Screen Presumptive negative 03/30/17 09:45 U Marijuana (THC) Screen Presumptive negative 03/30/17 09:45 Drugs of Abuse Note Disclamer 03/30/17 09:45 Blood Type O POSITIVE 03/29/17 11:35 Antibody Screen Negative 03/29/17 11:35
[2017-04-21] MEDS: LOPRESSOR PO SCH ×3 (00:07→14:03)
[2017-04-21] MEDS: NOVOLOG SUB-Q SCH ×4 (00:08→18:49)
[2017-04-21] MEDS: PLAVIX PO SCH (11:03)
[2017-04-21] MEDS: ASPIRIN PO SCH (11:03)
[2017-04-21] MEDS: ZESTRIL PO SCH (11:03)
[2017-04-21] MEDS: LASIX PO SCH (11:03)
[2017-04-21] MEDS: PROTONIX FEEDTUBE SCH (11:03)
[2017-04-21] MEDS: HEPARIN SUB-Q SCH ×2 (11:04→23:19)
--- NOTE | 2017-04-21 12:47 | Progress Note ---
Assessment and Plan Imp: 1. s/p CP arrest 2. Anoxic enceph. 3. Acute respiratory failure, hypoxia 4. s/p Trach/PEG 5. Hypernatremia 6. STEMI/ICMP 7. UTI Rec: 1. Lasix 20mg per PEG daily 2. Rocephin vs. E.coli x 7 days & monitor temp curve; f/u sputum culture GNRs although not convinced these are pathogenic; check procal level 3. Daily PSV as tolerated; goal is to get him on Tpiece and out of ICU 4. Plavix 5. TFs, DVT/GI PPx 6. Stop NTG patch; holding VICENTA and BB due to borderline low BP 7. Dismal prognosis and bad outcome is expected; no family present; complex patient Subjective Date of service: 04/21/17 Principal diagnosis: septic shock Interval history: No events. Continues to have fevers. Unresponsive. + Copious secretions from ET tube and orally/nasally. Tolerating PSV 12/5 today but noted to have some Shay -boykin breathing. Active Medications Acetaminophen (Tylenol) 1,000 mg PO Q6H PRN PRN Reason: Fever >101 Last Admin: 04/20/17 03:37 Dose: 1,000 mg Albuterol (Proventil) 2.5 mg IH Q3HRT PRN PRN Reason: Shortness Of Breath Last Admin: 04/13/17 21:25 Dose: 2.5 mg Lipase/Protease/Amylase (Pancreaze Dr 10,500 Unit) 1 each FEEDTUBE PRN PRN PRN Reason: For Clogged Feeding Tube Aspirin (Aspirin) 325 mg PO QDAY [facility] Last Admin: 04/21/17 11:03 Dose: 325 mg Clopidogrel Bisulfate (Plavix) 75 mg PO QDAY [facility] Last Admin: 04/21/17 11:03 Dose: 75 mg Dextrose (D50w (25gm) Syringe) 50 ml IV PRN PRN PRN Reason: Hypoglycemia Docusate Sodium (Colace) 100 mg FEEDTUBE BID [facility] Last Admin: 04/20/17 21:39 Dose: 100 mg Furosemide (Lasix) 20 mg PO QDAY [facility] Last Admin: 04/21/17 11:03 Dose: 20 mg Heparin Sodium (Porcine) (Heparin) 5,000 unit SUB-Q Q12HR [facility] Last Admin: 04/21/17 11:04 Dose: 5,000 unit Hydrophilic Ointment (Vaseline Lip Therapy) 1 applic TP Q2HR PRN PRN Reason: Dry Lips Last Admin: 03/31/17 22:50 Dose: 1 applic Ceftriaxone Sodium 1 gm/ (Sodium Chloride) 20 mls @ 20 mls/10 min IV Q24HR [facility] Stop: 04/22/17 12:00 Last Admin: 04/20/17 09:27 Dose: 20 mls/10 min Insulin Aspart (Novolog) 0 units SUB-Q Q6HR [place] PRN Reason: Protocol Last Admin: 04/21/17 06:13 Dose: 2 units Lisinopril (Zestril) 2.5 mg PO QDAY [facility] Last Admin: 04/21/17 11:03 Dose: 2.5 mg Metoprolol Tartrate (Lopressor) 2.5 mg IV Q4HR PRN PRN Reason: HR>130 Last Admin: 04/09/17 19:41 Dose: 2.5 mg Metoprolol Tartrate (Lopressor) 50 mg PO Q6HR [facility] Last Admin: 04/21/17 05:33 Dose: Not Given Multi-Ingred Cream/Lotion/Oil/Oint (Artificial Tears Ophth Oint) 1 applic OU Q4HR PRN PRN Reason: Dry Eye(s) Last Admin: 03/31/17 22:51 Dose: 1 applic Pantoprazole (Protonix) 40 mg FEEDTUBE DAILY [facility] Last Admin: 04/21/17 11:03 Dose: 40 mg Simple Syrup (Simple Syrup) 15 ml FEEDTUBE PRN PRN PRN Reason: Hypoglycemia Simple Syrup (Simple Syrup) 30 ml FEEDTUBE PRN PRN PRN Reason: Hypoglycemia Sodium Bicarbonate (Sodium Bicarbonate) 325 mg FEEDTUBE PRN PRN PRN Reason: For Clogged Feeding Tube Objective Vital Signs - 12hr 04/21/17 04/21/17 04/21/17 01:00 02:00 02:50 Temperature Pulse Rate 90 92 H 92 H Pulse Rate [ 92 H 92 H From Monitor] Respiratory 30 H 29 H 27 H Rate Blood Pressure 100/64 100/60 O2 Sat by Pulse 99 99 Oximetry 04/21/17 04/21/17 04/21/17 03:00 03:03 04:00 Temperature 99.8 F H Pulse Rate 91 H 90 90 Pulse Rate [ From Monitor] Respiratory 27 H 25 H Rate Blood Pressure 101/60 101/60 96/58 O2 Sat by Pulse 94 96 Oximetry 04/21/17 04/21/17 04/21/17 05:00 05:33 06:00 Temperature Pulse Rate 94 H 94 H 96 H Pulse Rate [ From Monitor] Respiratory 26 H 26 H Rate Blood Pressure 99/61 101/60 98/59 O2 Sat by Pulse 96 Oximetry 04/21/17 04/21/17 04/21/17 06:19 07:00 08:00 Temperature 99 F Pulse Rate 98 H 100 H Pulse Rate [ 92 H From Monitor] Respiratory 27 H 25 H 26 H Rate Blood Pressure 99/54 104/59 O2 Sat by Pulse 99 97 Oximetry 04/21/17 04/21/17 04/21/17 09:00 09:35 10:00 Temperature Pulse Rate 112 H 104 H 107 H Pulse Rate [ From Monitor] Respiratory 29 H 30 H Rate Blood Pressure 110/70 104/66 109/62 O2 Sat by Pulse 98 94 Oximetry 04/21/17 04/21/17 11:00 11:04 Temperature Pulse Rate 102 H 103 H Pulse Rate [ From Monitor] Respiratory 29 H 15 Rate Blood Pressure 107/69 104/66 O2 Sat by Pulse 100 99 Oximetry Constitutional: comatose Eyes: non-icteric ENT: oropharynx moist Neck: supple Effort: normal Ascultation: Bilateral: other (coarse BS bilaterally) Percussion: Bilateral: not dull Cardiovascular: regular rate and rhythm (no mrg) Gastrointestinal: normoactive bowel sounds, soft, non-tender, non-distended, other (mild distention) Integumentary: normal, other (multiple tattoos) Extremities: no cyanosis, no edema, pink and warm Neurologic: other (comatose, flaccid extremities, good cough w/ suction) Psychiatric: other (unable to assess) CBC and BMP: 04/20/17 03:35 04/20/17 03:35 ABG, PT/INR, D-dimer: ABG POC ABG pH 7.516 (7.35-7.45) H 04/19/17 06:50 POC ABG pCO2 28.0 (35-45) L 04/19/17 06:50 POC ABG pO2 81 (80-105) 04/19/17 06:50 POC ABG HCO3 22.7 04/19/17 06:50 POC ABG Total CO2 24 04/19/17 06:50 POC ABG O2 Sat 97 04/19/17 06:50 PT/INR, D-dimer PT 14.9 Sec. (12.2-14.9) 04/10/17 04:16 INR 1.11 (0.87-1.13) 04/10/17 04:16 Abnormal lab findings: Abnormal Labs 03/29/17 03/29/17 03/29/17 11:35 11:35 11:40 WBC RBC Hgb Hct MCV 98 H MCH 33 H Plt Count Lymph % (Auto) Eos % (Auto) Baso % (Auto) Lymph # Baso # Seg Neutrophils % Lymphocytes % (Manual) Monocytes % (Manual) 9.0 H Nucleated RBC % 1.0 H Seg Neutrophils # Seg Neutrophils # Man Monocytes # (Manual) 0.9 H PT 15.8 H INR 1.20 H Activated Clotting Time POC ABG pH POC ABG pCO2 POC ABG pO2 Sodium Potassium 2.7 L* Chloride 95.3 L Carbon Dioxide 17 L BUN Creatinine Glucose 435 H POC Glucose Calcium Magnesium Direct Bilirubin AST ALT Alkaline Phosphatase Total Creatine Kinase CK-MB (CK-2) CK-MB (CK-2) Rel Index Troponin T C-Reactive Protein Total Protein 6.1 L Albumin 3.5 L Triglycerides Ur Specific [place] Urine WBC (Auto) 03/29/17 03/29/17 03/29/17 12:34 13:10 13:25 WBC RBC Hgb Hct MCV MCH Plt Count Lymph % (Auto) Eos % (Auto) Baso % (Auto) Lymph # Baso # Seg Neutrophils % Lymphocytes % (Manual) Monocytes % (Manual) Nucleated RBC % Seg Neutrophils # Seg Neutrophils # Man Monocytes # (Manual) PT INR Activated Clotting Time 142 H 169 H 175 H POC ABG pH POC ABG pCO2 POC ABG pO2 Sodium Potassium Chloride Carbon Dioxide BUN Creatinine Glucose POC Glucose Calcium Magnesium Direct Bilirubin AST ALT Alkaline Phosphatase Total Creatine Kinase CK-MB (CK-2) CK-MB (CK-2) Rel Index Troponin T C-Reactive Protein Total Protein Albumin Triglycerides Ur Specific [place] Urine WBC (Auto) 03/29/17 03/29/17 03/29/17 14:50 15:18 19:52 WBC RBC Hgb Hct MCV MCH Plt Count Lymph % (Auto) Eos % (Auto) Baso % (Auto) Lymph # Baso # Seg Neutrophils % Lymphocytes % (Manual) Monocytes % (Manual) Nucleated RBC % Seg Neutrophils # Seg Neutrophils # Man Monocytes # (Manual) PT INR Activated Clotting Time 175 H POC ABG pH 7.293 L POC ABG pCO2 POC ABG pO2 602 H Sodium Potassium Chloride Carbon Dioxide BUN Creatinine Glucose POC Glucose Calcium Magnesium Direct Bilirubin AST ALT Alkaline Phosphatase Total Creatine Kinase 7263 H CK-MB (CK-2) > 300.0 H CK-MB (CK-2) Rel Index 4.1 H Troponin T 8.080 H* D C-Reactive Protein Total Protein Albumin Triglycerides 195 H Ur Specific [place] Urine WBC (Auto) 03/30/17 03/30/17 03/30/17 03:50 03:50 06:19 WBC 19.5 H RBC Hgb Hct MCV MCH Plt Count Lymph % (Auto) Eos % (Auto) Baso % (Auto) Lymph # Baso # Seg Neutrophils % Lymphocytes % (Manual) 7.0 L Monocytes % (Manual) Nucleated RBC % Seg Neutrophils # Seg Neutrophils # Man 12.7 H Monocytes # (Manual) 1.4 H PT INR Activated Clotting Time POC ABG pH POC ABG pCO2 28.2 L POC ABG pO2 108 H Sodium Potassium Chloride 108.9 H Carbon Dioxide 15 L BUN 25 H Creatinine Glucose 158 H POC Glucose Calcium 8.1 L Magnesium Direct Bilirubin AST ALT Alkaline Phosphatase Total Creatine Kinase 7963 H CK-MB (CK-2) > 300.0 H CK-MB (CK-2) Rel Index Troponin T 6.850 H* C-Reactive Protein Total Protein Albumin Triglycerides Ur Specific [place] Urine WBC (Auto) 03/30/17 03/30/17 03/31/17 09:45 16:04 02:19 WBC RBC Hgb Hct MCV MCH Plt Count Lymph % (Auto) Eos % (Auto) Baso % (Auto) Lymph # Baso # Seg Neutrophils % Lymphocytes % (Manual) Monocytes % (Manual) Nucleated RBC % Seg Neutrophils # Seg Neutrophils # Man Monocytes # (Manual) PT INR Activated Clotting Time POC ABG pH POC ABG pCO2 POC ABG pO2 Sodium Potassium Chloride Carbon Dioxide BUN Creatinine Glucose POC Glucose 137 H Calcium Magnesium Direct Bilirubin AST ALT Alkaline Phosphatase Total Creatine Kinase CK-MB (CK-2) CK-MB (CK-2) Rel Index Troponin T C-Reactive Protein 21.80 H Total Protein Albumin Triglycerides Ur Specific [place] 1.031 H Urine WBC (Auto) 03/31/17 03/31/17 03/31/17 03:57 06:54 09:22 WBC RBC Hgb Hct MCV MCH Plt Count Lymph % (Auto) Eos % (Auto) Baso % (Auto) Lymph # Baso # Seg Neutrophils % Lymphocytes % (Manual) Monocytes % (Manual) Nucleated RBC % Seg Neutrophils # Seg Neutrophils # Man Monocytes # (Manual) PT INR Activated Clotting Time POC ABG pH 7.475 H POC ABG pCO2 25.4 L POC ABG pO2 62 L Sodium Potassium Chloride Carbon Dioxide 19 L BUN 22 H Creatinine 0.6 L Glucose 148 H POC Glucose 143 H Calcium 8.3 L Magnesium Direct Bilirubin AST ALT Alkaline Phosphatase Total Creatine Kinase CK-MB (CK-2) CK-MB (CK-2) Rel Index Troponin T C-Reactive Protein Total Protein Albumin Triglycerides Ur Specific [place] Urine WBC (Auto) 03/31/17 03/31/17 03/31/17 11:40 17:47 23:38 WBC RBC Hgb Hct MCV MCH Plt Count Lymph % (Auto) Eos % (Auto) Baso % (Auto) Lymph # Baso # Seg Neutrophils % Lymphocytes % (Manual) Monocytes % (Manual) Nucleated RBC % Seg Neutrophils # Seg Neutrophils # Man Monocytes # (Manual) PT INR Activated Clotting Time POC ABG pH POC ABG pCO2 POC ABG pO2 Sodium Potassium Chloride Carbon Dioxide BUN Creatinine Glucose POC Glucose 127 H 137 H 148 H Calcium Magnesium Direct Bilirubin AST ALT Alkaline Phosphatase Total Creatine Kinase CK-MB (CK-2) CK-MB (CK-2) Rel Index Troponin T C-Reactive Protein Total Protein Albumin Triglycerides Ur Specific [place] Urine WBC (Auto) 04/01/17 04/01/17 04/01/17 04:29 05:01 11:54 WBC RBC Hgb Hct MCV MCH Plt Count Lymph % (Auto) Eos % (Auto) Baso % (Auto) Lymph # Baso # Seg Neutrophils % Lymphocytes % (Manual) Monocytes % (Manual) Nucleated RBC % Seg Neutrophils # Seg Neutrophils # Man Monocytes # (Manual) PT INR Activated Clotting Time POC ABG pH 7.513 H POC ABG pCO2 22.1 L POC ABG pO2 64 L Sodium Potassium Chloride Carbon Dioxide BUN Creatinine Glucose POC Glucose 121 H Calcium Magnesium Direct Bilirubin AST ALT Alkaline Phosphatase Total Creatine Kinase CK-MB (CK-2) CK-MB (CK-2) Rel Index Troponin T C-Reactive Protein Total Protein Albumin Triglycerides 151 H Ur Specific [place] Urine WBC (Auto) 04/01/17 04/02/17 04/02/17 18:17 00:11 04:52 WBC RBC Hgb Hct MCV MCH Plt Count Lymph % (Auto) Eos % (Auto) Baso % (Auto) Lymph # Baso # Seg Neutrophils % Lymphocytes % (Manual) Monocytes % (Manual) Nucleated RBC % Seg Neutrophils # Seg Neutrophils # Man Monocytes # (Manual) PT INR Activated Clotting Time POC ABG pH 7.524 H POC ABG pCO2 25.5 L POC ABG pO2 66 L Sodium Potassium Chloride Carbon Dioxide BUN Creatinine Glucose POC Glucose 117 H 122 H Calcium Magnesium Direct Bilirubin AST ALT Alkaline Phosphatase Total Creatine Kinase CK-MB (CK-2) CK-MB (CK-2) Rel Index Troponin T C-Reactive Protein Total Protein Albumin Triglycerides Ur Specific [place] Urine WBC (Auto) 04/02/17 04/02/17 04/02/17 05:18 10:41 12:19 WBC RBC Hgb Hct MCV MCH Plt Count Lymph % (Auto) Eos % (Auto) Baso % (Auto) Lymph # Baso # Seg Neutrophils % Lymphocytes % (Manual) Monocytes % (Manual) Nucleated RBC % Seg Neutrophils # Seg Neutrophils # Man Monocytes # (Manual) PT INR Activated Clotting Time POC ABG pH 7.534 H POC ABG pCO2 27.4 L POC ABG pO2 Sodium Potassium Chloride Carbon Dioxide BUN Creatinine Glucose POC Glucose 132 H 129 H Calcium Magnesium Direct Bilirubin AST ALT Alkaline Phosphatase Total Creatine Kinase CK-MB (CK-2) CK-MB (CK-2) Rel Index Troponin T C-Reactive Protein Total Protein Albumin Triglycerides Ur Specific [place] Urine WBC (Auto) 04/02/17 04/03/17 04/03/17 18:05 00:08 05:09 WBC RBC Hgb Hct MCV MCH Plt Count Lymph % (Auto) Eos % (Auto) Baso % (Auto) Lymph # Baso # Seg Neutrophils % Lymphocytes % (Manual) Monocytes % (Manual) Nucleated RBC % Seg Neutrophils # Seg Neutrophils # Man Monocytes # (Manual) PT INR Activated Clotting Time POC ABG pH 7.455 H POC ABG pCO2 33.2 L POC ABG pO2 120 H Sodium Potassium Chloride Carbon Dioxide BUN Creatinine Glucose POC Glucose 136 H 128 H Calcium Magnesium Direct Bilirubin AST ALT Alkaline Phosphatase Total Creatine Kinase CK-MB (CK-2) CK-MB (CK-2) Rel Index Troponin T C-Reactive Protein Total Protein Albumin Triglycerides Ur Specific [place] Urine WBC (Auto) 04/03/17 04/03/17 04/03/17 06:32 11:54 12:16 WBC 11.9 H RBC Hgb Hct MCV MCH Plt Count 125 L Lymph % (Auto) 4.8 L Eos % (Auto) Baso % (Auto) Lymph # 0.6 L Baso # Seg Neutrophils % 86.7 H Lymphocytes % (Manual) Monocytes % (Manual) Nucleated RBC % Seg Neutrophils # 10.3 H Seg Neutrophils # Man Monocytes # (Manual) PT INR Activated Clotting Time POC ABG pH POC ABG pCO2 POC ABG pO2 Sodium Potassium Chloride Carbon Dioxide BUN Creatinine Glucose POC Glucose 138 H 143 H Calcium Magnesium Direct Bilirubin AST ALT Alkaline Phosphatase Total Creatine Kinase CK-MB (CK-2) CK-MB (CK-2) Rel Index Troponin T C-Reactive Protein Total Protein Albumin Triglycerides Ur Specific [place] Urine WBC (Auto) 04/03/17 04/03/17 04/04/17 17:33 23:59 04:34 WBC RBC Hgb Hct MCV MCH Plt Count Lymph % (Auto) Eos % (Auto) Baso % (Auto) Lymph # Baso # Seg Neutrophils % Lymphocytes % (Manual) Monocytes % (Manual) Nucleated RBC % Seg Neutrophils # Seg Neutrophils # Man Monocytes # (Manual) PT INR Activated Clotting Time POC ABG pH 7.457 H POC ABG pCO2 29.8 L POC ABG pO2 76 L Sodium Potassium Chloride Carbon Dioxide BUN Creatinine Glucose POC Glucose 130 H 155 H Calcium Magnesium Direct Bilirubin AST ALT Alkaline Phosphatase Total Creatine Kinase CK-MB (CK-2) CK-MB (CK-2) Rel Index Troponin T C-Reactive Protein Total Protein Albumin Triglycerides Ur Specific [place] Urine WBC (Auto) 04/04/17 04/04/17 04/04/17 05:27 12:22 18:18 WBC RBC Hgb Hct MCV MCH Plt Count Lymph % (Auto) Eos % (Auto) Baso % (Auto) Lymph # Baso # Seg Neutrophils % Lymphocytes % (Manual) Monocytes % (Manual) Nucleated RBC % Seg Neutrophils # Seg Neutrophils # Man Monocytes # (Manual) PT INR Activated Clotting Time POC ABG pH POC ABG pCO2 POC ABG pO2 Sodium Potassium Chloride Carbon Dioxide BUN Creatinine Glucose POC Glucose 164 H 146 H 130 H Calcium Magnesium Direct Bilirubin AST ALT Alkaline Phosphatase Total Creatine Kinase CK-MB (CK-2) CK-MB (CK-2) Rel Index Troponin T C-Reactive Protein Total Protein Albumin Triglycerides Ur Specific [place] Urine WBC (Auto) 04/05/17 04/05/17 04/05/17 04:43 05:28 11:36 WBC RBC Hgb Hct MCV MCH Plt Count Lymph % (Auto) Eos % (Auto) Baso % (Auto) Lymph # Baso # Seg Neutrophils % Lymphocytes % (Manual) Monocytes % (Manual) Nucleated RBC % Seg Neutrophils # Seg Neutrophils # Man Monocytes # (Manual) PT INR Activated Clotting Time POC ABG pH 7.479 H POC ABG pCO2 33.5 L POC ABG pO2 76 L Sodium Potassium Chloride Carbon Dioxide BUN Creatinine Glucose POC Glucose 145 H 136 H Calcium Magnesium Direct Bilirubin AST ALT Alkaline Phosphatase Total Creatine Kinase CK-MB (CK-2) CK-MB (CK-2) Rel Index Troponin T C-Reactive Protein Total Protein Albumin Triglycerides Ur Specific [place] Urine WBC (Auto) 04/05/17 04/06/17 04/06/17 17:58 00:16 05:26 WBC RBC Hgb Hct MCV MCH Plt Count Lymph % (Auto) Eos % (Auto) Baso % (Auto) Lymph # Baso # Seg Neutrophils % Lymphocytes % (Manual) Monocytes % (Manual) Nucleated RBC % Seg Neutrophils # Seg Neutrophils # Man Monocytes # (Manual) PT INR Activated Clotting Time POC ABG pH POC ABG pCO2 POC ABG pO2 Sodium Potassium Chloride Carbon Dioxide BUN Creatinine Glucose POC Glucose 130 H 159 H 146 H Calcium Magnesium Direct Bilirubin AST ALT Alkaline Phosphatase Total Creatine Kinase CK-MB (CK-2) CK-MB (CK-2) Rel Index Troponin T C-Reactive Protein Total Protein Albumin Triglycerides Ur Specific [place] Urine WBC (Auto) 04/06/17 04/06/17 04/07/17 13:11 16:54 11:45 WBC RBC Hgb Hct MCV MCH Plt Count Lymph % (Auto) Eos % (Auto) Baso % (Auto) Lymph # Baso # Seg Neutrophils % Lymphocytes % (Manual) Monocytes % (Manual) Nucleated RBC % Seg Neutrophils # Seg Neutrophils # Man Monocytes # (Manual) PT INR Activated Clotting Time POC ABG pH 7.517 H POC ABG pCO2 32.1 L POC ABG pO2 Sodium Potassium Chloride Carbon Dioxide BUN Creatinine Glucose POC Glucose 132 H 123 H Calcium Magnesium Direct Bilirubin AST ALT Alkaline Phosphatase Total Creatine Kinase CK-MB (CK-2) CK-MB (CK-2) Rel Index Troponin T C-Reactive Protein Total Protein Albumin Triglycerides Ur Specific [place] Urine WBC (Auto) 04/07/17 04/07/17 04/07/17 12:51 17:40 23:55 WBC RBC Hgb Hct MCV MCH Plt Count Lymph % (Auto) Eos % (Auto) Baso % (Auto) Lymph # Baso # Seg Neutrophils % Lymphocytes % (Manual) Monocytes % (Manual) Nucleated RBC % Seg Neutrophils # Seg Neutrophils # Man Monocytes # (Manual) PT INR Activated Clotting Time POC ABG pH POC ABG pCO2 POC ABG pO2 Sodium Potassium Chloride Carbon Dioxide BUN Creatinine Glucose POC Glucose 138 H 154 H 143 H Calcium Magnesium Direct Bilirubin AST ALT Alkaline Phosphatase Total Creatine Kinase CK-MB (CK-2) CK-MB (CK-2) Rel Index Troponin T C-Reactive Protein Total Protein Albumin Triglycerides Ur Specific [place] Urine WBC (Auto) 04/08/17 04/08/17 04/08/17 05:27 11:14 17:44 WBC RBC Hgb Hct MCV MCH Plt Count Lymph % (Auto) Eos % (Auto) Baso % (Auto) Lymph # Baso # Seg Neutrophils % Lymphocytes % (Manual) Monocytes % (Manual) Nucleated RBC % Seg Neutrophils # Seg Neutrophils # Man Monocytes # (Manual) PT INR Activated Clotting Time POC ABG pH POC ABG pCO2 POC ABG pO2 Sodium Potassium Chloride Carbon Dioxide BUN Creatinine Glucose POC Glucose 142 H 153 H 129 H Calcium Magnesium Direct Bilirubin AST ALT Alkaline Phosphatase Total Creatine Kinase CK-MB (CK-2) CK-MB (CK-2) Rel Index Troponin T C-Reactive Protein Total Protein Albumin Triglycerides Ur Specific [place] Urine WBC (Auto) 04/09/17 04/09/17 04/09/17 08:20 11:21 17:37 WBC RBC Hgb Hct MCV MCH Plt Count Lymph % (Auto) Eos % (Auto) Baso % (Auto) Lymph # Baso # Seg Neutrophils % Lymphocytes % (Manual) Monocytes % (Manual) Nucleated RBC % Seg Neutrophils # Seg Neutrophils # Man Monocytes # (Manual) PT INR Activated Clotting Time POC ABG pH POC ABG pCO2 POC ABG pO2 Sodium 147 H Potassium Chloride 108.8 H Carbon Dioxide BUN 39 H Creatinine 0.5 L Glucose 138 H POC Glucose 152 H 109 H Calcium Magnesium Direct Bilirubin AST ALT Alkaline Phosphatase Total Creatine Kinase CK-MB (CK-2) CK-MB (CK-2) Rel Index Troponin T C-Reactive Protein Total Protein Albumin Triglycerides Ur Specific [place] Urine WBC (Auto) 04/10/17 04/10/17 04/10/17 00:13 04:16 04:16 WBC RBC Hgb 11.5 L Hct MCV 96 H MCH Plt Count 103 L Lymph % (Auto) 11.1 L Eos % (Auto) Baso % (Auto) Lymph # Baso # Seg Neutrophils % 81.5 H Lymphocytes % (Manual) Monocytes % (Manual) Nucleated RBC % Seg Neutrophils # 8.8 H Seg Neutrophils # Man Monocytes # (Manual) PT INR Activated Clotting Time POC ABG pH POC ABG pCO2 POC ABG pO2 Sodium 148 H Potassium Chloride 109.0 H Carbon Dioxide BUN 36 H Creatinine 0.5 L Glucose 131 H POC Glucose 127 H Calcium 8.1 L Magnesium 2.40 H Direct Bilirubin AST 206 H ALT 228 H Alkaline Phosphatase 178 H Total Creatine Kinase CK-MB (CK-2) CK-MB (CK-2) Rel Index Troponin T C-Reactive Protein Total Protein Albumin 2.8 L Triglycerides Ur Specific [place] Urine WBC (Auto) 04/10/17 04/10/17 04/10/17 06:01 11:57 18:27 WBC RBC Hgb Hct MCV MCH Plt Count Lymph % (Auto) Eos % (Auto) Baso % (Auto) Lymph # Baso # Seg Neutrophils % Lymphocytes % (Manual) Monocytes % (Manual) Nucleated RBC % Seg Neutrophils # Seg Neutrophils # Man Monocytes # (Manual) PT INR Activated Clotting Time POC ABG pH POC ABG pCO2 POC ABG pO2 Sodium Potassium Chloride Carbon Dioxide BUN Creatinine Glucose POC Glucose 108 H 154 H 130 H Calcium Magnesium Direct Bilirubin AST ALT Alkaline Phosphatase Total Creatine Kinase CK-MB (CK-2) CK-MB (CK-2) Rel Index Troponin T C-Reactive Protein Total Protein Albumin Triglycerides Ur Specific [place] Urine WBC (Auto) 04/11/17 04/11/17 04/12/17 12:25 17:10 00:22 WBC RBC Hgb Hct MCV MCH Plt Count Lymph % (Auto) Eos % (Auto) Baso % (Auto) Lymph # Baso # Seg Neutrophils % Lymphocytes % (Manual) Monocytes % (Manual) Nucleated RBC % Seg Neutrophils # Seg Neutrophils # Man Monocytes # (Manual) PT INR Activated Clotting Time POC ABG pH POC ABG pCO2 POC ABG pO2 Sodium Potassium Chloride Carbon Dioxide BUN Creatinine Glucose POC Glucose 107 H 129 H 128 H Calcium Magnesium Direct Bilirubin AST ALT Alkaline Phosphatase Total Creatine Kinase CK-MB (CK-2) CK-MB (CK-2) Rel Index Troponin T C-Reactive Protein Total Protein Albumin Triglycerides Ur Specific [place] Urine WBC (Auto) 04/12/17 04/12/17 04/12/17 05:00 11:57 17:47 WBC RBC Hgb Hct MCV MCH Plt Count Lymph % (Auto) Eos % (Auto) Baso % (Auto) Lymph # Baso # Seg Neutrophils % Lymphocytes % (Manual) Monocytes % (Manual) Nucleated RBC % Seg Neutrophils # Seg Neutrophils # Man Monocytes # (Manual) PT INR Activated Clotting Time POC ABG pH POC ABG pCO2 POC ABG pO2 Sodium Potassium Chloride Carbon Dioxide BUN Creatinine Glucose POC Glucose 140 H 142 H Calcium Magnesium Direct Bilirubin AST 158 H ALT 184 H Alkaline Phosphatase 170 H Total Creatine Kinase CK-MB (CK-2) CK-MB (CK-2) Rel Index Troponin T C-Reactive Protein Total Protein Albumin 2.8 L Triglycerides Ur Specific [place] Urine WBC (Auto) 04/12/17 04/12/17 04/13/17 21:36 21:36 01:37 WBC RBC Hgb Hct MCV MCH Plt Count Lymph % (Auto) Eos % (Auto) Baso % (Auto) Lymph # Baso # Seg Neutrophils % Lymphocytes % (Manual) Monocytes % (Manual) Nucleated RBC % Seg Neutrophils # Seg Neutrophils # Man Monocytes # (Manual) PT INR Activated Clotting Time POC ABG pH POC ABG pCO2 POC ABG pO2 Sodium Potassium Chloride Carbon Dioxide BUN Creatinine Glucose POC Glucose 126 H Calcium Magnesium Direct Bilirubin AST ALT Alkaline Phosphatase Total Creatine Kinase 1404 H CK-MB (CK-2) 8.0 H CK-MB (CK-2) Rel Index Troponin T 0.767 H* C-Reactive Protein Total Protein Albumin Triglycerides Ur Specific [place] Urine WBC (Auto) 04/13/17 04/13/17 04/13/17 04:45 04:52 12:17 WBC RBC Hgb Hct MCV MCH Plt Count Lymph % (Auto) Eos % (Auto) Baso % (Auto) Lymph # Baso # Seg Neutrophils % Lymphocytes % (Manual) Monocytes % (Manual) Nucleated RBC % Seg Neutrophils # Seg Neutrophils # Man Monocytes # (Manual) PT INR Activated Clotting Time POC ABG pH POC ABG pCO2 POC ABG pO2 Sodium 148 H Potassium Chloride 112.8 H Carbon Dioxide BUN 33 H Creatinine 0.4 L Glucose 121 H POC Glucose 126 H 149 H Calcium Magnesium Direct Bilirubin AST 160 H ALT 189 H Alkaline Phosphatase 166 H Total Creatine Kinase CK-MB (CK-2) CK-MB (CK-2) Rel Index Troponin T C-Reactive Protein Total Protein Albumin 2.6 L Triglycerides Ur Specific [place] Urine WBC (Auto) 04/13/17 04/14/17 04/14/17 17:45 00:20 00:45 WBC RBC Hgb Hct MCV MCH Plt Count Lymph % (Auto) Eos % (Auto) Baso % (Auto) Lymph # Baso # Seg Neutrophils % Lymphocytes % (Manual) Monocytes % (Manual) Nucleated RBC % Seg Neutrophils # Seg Neutrophils # Man Monocytes # (Manual) PT INR Activated Clotting Time POC ABG pH POC ABG pCO2 POC ABG pO2 Sodium Potassium Chloride Carbon Dioxide BUN Creatinine Glucose POC Glucose 130 H 144 H 144 H Calcium Magnesium Direct Bilirubin AST ALT Alkaline Phosphatase Total Creatine Kinase CK-MB (CK-2) CK-MB (CK-2) Rel Index Troponin T C-Reactive Protein Total Protein Albumin Triglycerides Ur Specific [place] Urine WBC (Auto) 04/14/17 04/14/17 04/14/17 05:40 11:06 11:31 WBC RBC Hgb Hct MCV MCH Plt Count Lymph % (Auto) Eos % (Auto) Baso % (Auto) Lymph # Baso # Seg Neutrophils % Lymphocytes % (Manual) Monocytes % (Manual) Nucleated RBC % Seg Neutrophils # Seg Neutrophils # Man Monocytes # (Manual) PT INR Activated Clotting Time POC ABG pH POC ABG pCO2 POC ABG pO2 Sodium Potassium Chloride Carbon Dioxide BUN Creatinine Glucose POC Glucose 139 H 123 H Calcium Magnesium Direct Bilirubin AST ALT Alkaline Phosphatase Total Creatine Kinase CK-MB (CK-2) CK-MB (CK-2) Rel Index Troponin T C-Reactive Protein Total Protein Albumin Triglycerides Ur Specific [place] 1.033 H Urine WBC (Auto) > 182.0 H 04/14/17 04/14/17 04/15/17 18:00 23:52 05:15 WBC 12.5 H RBC 3.38 L Hgb 10.6 L Hct 32.7 L MCV 97 H MCH Plt Count 107 L Lymph % (Auto) 8.7 L Eos % (Auto) Baso % (Auto) Lymph # 1.1 L Baso # Seg Neutrophils % 86.1 H Lymphocytes % (Manual) Monocytes % (Manual) Nucleated RBC % Seg Neutrophils # 10.7 H Seg Neutrophils # Man Monocytes # (Manual) PT INR Activated Clotting Time POC ABG pH POC ABG pCO2 POC ABG pO2 Sodium Potassium Chloride Carbon Dioxide BUN Creatinine Glucose POC Glucose 133 H 133 H Calcium Magnesium Direct Bilirubin AST ALT Alkaline Phosphatase Total Creatine Kinase CK-MB (CK-2) CK-MB (CK-2) Rel Index Troponin T C-Reactive Protein Total Protein Albumin Triglycerides Ur Specific [place] Urine WBC (Auto) 04/15/17 04/15/17 04/15/17 05:15 05:25 11:50 WBC RBC Hgb Hct MCV MCH Plt Count Lymph % (Auto) Eos % (Auto) Baso % (Auto) Lymph # Baso # Seg Neutrophils % Lymphocytes % (Manual) Monocytes % (Manual) Nucleated RBC % Seg Neutrophils # Seg Neutrophils # Man Monocytes # (Manual) PT INR Activated Clotting Time POC ABG pH POC ABG pCO2 POC ABG pO2 Sodium 149 H Potassium 3.5 L Chloride 114.1 H Carbon Dioxide 21 L BUN 29 H Creatinine 0.4 L Glucose 128 H POC Glucose 133 H 107 H Calcium 8.3 L Magnesium Direct Bilirubin 0.4 H AST 149 H ALT 182 H Alkaline Phosphatase 143 H Total Creatine Kinase CK-MB (CK-2) CK-MB (CK-2) Rel Index Troponin T C-Reactive Protein Total Protein Albumin 2.5 L Triglycerides Ur Specific [place] Urine WBC (Auto) 04/15/17 04/16/17 04/16/17 16:55 00:02 03:17 WBC RBC 3.39 L Hgb 10.5 L Hct 32.4 L MCV 96 H MCH Plt Count 106 L Lymph % (Auto) 6.7 L Eos % (Auto) Baso % (Auto) Lymph # 0.6 L Baso # Seg Neutrophils % 86.8 H Lymphocytes % (Manual) Monocytes % (Manual) Nucleated RBC % Seg Neutrophils # 8.2 H Seg Neutrophils # Man Monocytes # (Manual) PT INR Activated Clotting Time POC ABG pH POC ABG pCO2 POC ABG pO2 Sodium Potassium Chloride Carbon Dioxide BUN Creatinine Glucose POC Glucose 146 H 148 H Calcium Magnesium Direct Bilirubin AST ALT Alkaline Phosphatase Total Creatine Kinase CK-MB (CK-2) CK-MB (CK-2) Rel Index Troponin T C-Reactive Protein Total Protein Albumin Triglycerides Ur Specific [place] Urine WBC (Auto) 04/16/17 04/16/17 04/16/17 03:17 05:19 11:13 WBC RBC Hgb Hct MCV MCH Plt Count Lymph % (Auto) Eos % (Auto) Baso % (Auto) Lymph # Baso # Seg Neutrophils % Lymphocytes % (Manual) Monocytes % (Manual) Nucleated RBC % Seg Neutrophils # Seg Neutrophils # Man Monocytes # (Manual) PT INR Activated Clotting Time POC ABG pH POC ABG pCO2 POC ABG pO2 Sodium 149 H Potassium Chloride 111.1 H Carbon Dioxide 20 L BUN 27 H Creatinine 0.3 L Glucose 156 H POC Glucose 171 H 169 H Calcium 8.3 L Magnesium Direct Bilirubin AST ALT Alkaline Phosphatase Total Creatine Kinase CK-MB (CK-2) CK-MB (CK-2) Rel Index Troponin T C-Reactive Protein Total Protein Albumin Triglycerides Ur Specific [place] Urine WBC (Auto) 04/16/17 04/17/17 04/17/17 17:03 00:00 05:09 WBC RBC Hgb Hct MCV MCH Plt Count Lymph % (Auto) Eos % (Auto) Baso % (Auto) Lymph # Baso # Seg Neutrophils % Lymphocytes % (Manual) Monocytes % (Manual) Nucleated RBC % Seg Neutrophils # Seg Neutrophils # Man Monocytes # (Manual) PT INR Activated Clotting Time POC ABG pH POC ABG pCO2 POC ABG pO2 Sodium Potassium Chloride Carbon Dioxide BUN Creatinine Glucose POC Glucose 151 H 165 H 145 H Calcium Magnesium Direct Bilirubin AST ALT Alkaline Phosphatase Total Creatine Kinase CK-MB (CK-2) CK-MB (CK-2) Rel Index Troponin T C-Reactive Protein Total Protein Albumin Triglycerides Ur Specific [place] Urine WBC (Auto) 04/17/17 04/17/17 04/18/17 11:38 17:47 00:01 WBC RBC Hgb Hct MCV MCH Plt Count Lymph % (Auto) Eos % (Auto) Baso % (Auto) Lymph # Baso # Seg Neutrophils % Lymphocytes % (Manual) Monocytes % (Manual) Nucleated RBC % Seg Neutrophils # Seg Neutrophils # Man Monocytes # (Manual) PT INR Activated Clotting Time POC ABG pH POC ABG pCO2 POC ABG pO2 Sodium Potassium Chloride Carbon Dioxide BUN Creatinine Glucose POC Glucose 170 H 161 H 131 H Calcium Magnesium Direct Bilirubin AST ALT Alkaline Phosphatase Total Creatine Kinase CK-MB (CK-2) CK-MB (CK-2) Rel Index Troponin T C-Reactive Protein Total Protein Albumin Triglycerides Ur Specific [place] Urine WBC (Auto) 04/18/17 04/18/17 04/18/17 03:55 03:55 05:30 WBC RBC 3.05 L Hgb 9.8 L Hct 29.0 L MCV 95 H MCH Plt Count 113 L Lymph % (Auto) Eos % (Auto) 5.3 H Baso % (Auto) Lymph # Baso # Seg Neutrophils % 71.5 H Lymphocytes % (Manual) Monocytes % (Manual) Nucleated RBC % Seg Neutrophils # Seg Neutrophils # Man Monocytes # (Manual) PT INR Activated Clotting Time POC ABG pH 7.460 H POC ABG pCO2 30.8 L POC ABG pO2 129 H Sodium Potassium Chloride Carbon Dioxide 21 L BUN 25 H Creatinine 0.4 L Glucose 123 H POC Glucose Calcium 8.3 L Magnesium Direct Bilirubin AST ALT Alkaline Phosphatase Total Creatine Kinase CK-MB (CK-2) CK-MB (CK-2) Rel Index Troponin T C-Reactive Protein Total Protein Albumin Triglycerides Ur Specific [place] Urine WBC (Auto) 04/18/17 04/18/17 04/19/17 17:10 23:40 04:36 WBC RBC 3.21 L Hgb 10.2 L Hct 30.4 L MCV 95 H MCH Plt Count 131 L Lymph % (Auto) 12.1 L Eos % (Auto) 4.7 H Baso % (Auto) 2.4 H Lymph # 0.9 L Baso # 0.2 H Seg Neutrophils % 75.0 H Lymphocytes % (Manual) Monocytes % (Manual) Nucleated RBC % Seg Neutrophils # Seg Neutrophils # Man Monocytes # (Manual) PT INR Activated Clotting Time POC ABG pH POC ABG pCO2 POC ABG pO2 Sodium Potassium Chloride Carbon Dioxide BUN Creatinine Glucose POC Glucose 135 H 157 H Calcium Magnesium Direct Bilirubin AST ALT Alkaline Phosphatase Total Creatine Kinase CK-MB (CK-2) CK-MB (CK-2) Rel Index Troponin T C-Reactive Protein Total Protein Albumin Triglycerides Ur Specific [place] Urine WBC (Auto) 04/19/17 04/19/17 04/19/17 04:36 05:12 06:50 WBC RBC Hgb Hct MCV MCH Plt Count Lymph % (Auto) Eos % (Auto) Baso % (Auto) Lymph # Baso # Seg Neutrophils % Lymphocytes % (Manual) Monocytes % (Manual) Nucleated RBC % Seg Neutrophils # Seg Neutrophils # Man Monocytes # (Manual) PT INR Activated Clotting Time POC ABG pH 7.516 H POC ABG pCO2 28.0 L POC ABG pO2 Sodium Potassium Chloride Carbon Dioxide 21 L BUN 23 H Creatinine 0.2 L Glucose 137 H POC Glucose 131 H Calcium 7.9 L Magnesium Direct Bilirubin AST ALT Alkaline Phosphatase Total Creatine Kinase CK-MB (CK-2) CK-MB (CK-2) Rel Index Troponin T C-Reactive Protein Total Protein Albumin Triglycerides Ur Specific [place] Urine WBC (Auto) 04/19/17 04/19/17 04/20/17 12:36 17:42 00:12 WBC RBC Hgb Hct MCV MCH Plt Count Lymph % (Auto) Eos % (Auto) Baso % (Auto) Lymph # Baso # Seg Neutrophils % Lymphocytes % (Manual) Monocytes % (Manual) Nucleated RBC % Seg Neutrophils # Seg Neutrophils # Man Monocytes # (Manual) PT INR Activated Clotting Time POC ABG pH POC ABG pCO2 POC ABG pO2 Sodium Potassium Chloride Carbon Dioxide BUN Creatinine Glucose POC Glucose 128 H 140 H 132 H Calcium Magnesium Direct Bilirubin AST ALT Alkaline Phosphatase Total Creatine Kinase CK-MB (CK-2) CK-MB (CK-2) Rel Index Troponin T C-Reactive Protein Total Protein Albumin Triglycerides Ur Specific [place] Urine WBC (Auto) 04/20/17 04/20/17 04/20/17 03:35 03:35 05:10 WBC RBC 3.34 L Hgb 10.4 L Hct 31.6 L MCV 95 H MCH Plt Count Lymph % (Auto) 12.9 L Eos % (Auto) Baso % (Auto) Lymph # Baso # Seg Neutrophils % 77.3 H Lymphocytes % (Manual) Monocytes % (Manual) Nucleated RBC % Seg Neutrophils # Seg Neutrophils # Man Monocytes # (Manual) PT INR Activated Clotting Time POC ABG pH POC ABG pCO2 POC ABG pO2 Sodium Potassium Chloride Carbon Dioxide BUN Creatinine 0.3 L Glucose 155 H POC Glucose 135 H Calcium 7.8 L Magnesium Direct Bilirubin AST ALT Alkaline Phosphatase Total Creatine Kinase CK-MB (CK-2) CK-MB (CK-2) Rel Index Troponin T C-Reactive Protein Total Protein Albumin Triglycerides Ur Specific [place] Urine WBC (Auto) 04/20/17 04/20/17 04/21/17 12:49 18:21 00:05 WBC RBC Hgb Hct MCV MCH Plt Count Lymph % (Auto) Eos % (Auto) Baso % (Auto) Lymph # Baso # Seg Neutrophils % Lymphocytes % (Manual) Monocytes % (Manual) Nucleated RBC % Seg Neutrophils # Seg Neutrophils # Man Monocytes # (Manual) PT INR Activated Clotting Time POC ABG pH POC ABG pCO2 POC ABG pO2 Sodium Potassium Chloride Carbon Dioxide BUN Creatinine Glucose POC Glucose 155 H 165 H 141 H Calcium Magnesium Direct Bilirubin AST ALT Alkaline Phosphatase Total Creatine Kinase CK-MB (CK-2) CK-MB (CK-2) Rel Index Troponin T C-Reactive Protein Total Protein Albumin Triglycerides Ur Specific [place] Urine WBC (Auto) 04/21/17 06:00 WBC RBC Hgb Hct MCV MCH Plt Count Lymph % (Auto) Eos % (Auto) Baso % (Auto) Lymph # Baso # Seg Neutrophils % Lymphocytes % (Manual) Monocytes % (Manual) Nucleated RBC % Seg Neutrophils # Seg Neutrophils # Man Monocytes # (Manual) PT INR Activated Clotting Time POC ABG pH POC ABG pCO2 POC ABG pO2 Sodium Potassium Chloride Carbon Dioxide BUN Creatinine Glucose POC Glucose 152 H Calcium Magnesium Direct Bilirubin AST ALT Alkaline Phosphatase Total Creatine Kinase CK-MB (CK-2) CK-MB (CK-2) Rel Index Troponin T C-Reactive Protein Total Protein Albumin Triglycerides Ur Specific [place] Urine WBC (Auto) Chest x-ray: report reviewed, image reviewed
[2017-04-21] MEDS: COLACE FEEDTUBE SCH ×2 (14:03→23:19)
[2017-04-21] MEDS: cefTRIAXone 1 GM in NACL 0.9% 20 ML IV SCH (14:51)
--- NOTE | 2017-04-21 17:32 | Progress Note ---
Assessment and Plan Assessment and plan: 46 YO Male with No PMH was admitted through emergency room with history of V. fib cardiac arrest status post CPR per ACLS protocol, acute respiratory failure vent dependent , had tracheostomy and PEG placement, awaiting LTAC evaluation and placement --Status post cardiac arrest: Status post CPR, --Anoxic brain injury; Poor prognosis, s/p trach and PEG --Acute hypoxic respiratory failure;s/p tracheostomy on vent --Acute anterior STEMI ; status post PCI , stable on cardiac medications per cardiology --Hypertension ; continue current antihypertensives and PRN medications --MRSA pneumonia /aspiration pneumonia , contact isolation, ID following, completed zyvox on 04/10 --Cardiogenic shock; resolved, off pressors --Hypokalemia /hypernatremia, Corrected --Tracheostomy care, PEG feeds --DVT prophylaxis; heparin --Full CODE STATUS --DC planning; multiple social issues, possible SNF/LTAC placement Patient has no payer source medicare disability application in process of being filled out by family Critical care time 32 minutes The high probability of a clinically significant, sudden or life threatening deterioration of the [Pulmonary, cardiac, renal] system(s) required my full and direct attention, intervention and personal management. The aggregate critical care time was [32] minutes. This time is in addition to time spent performing reported procedures but includes the following: [x] Data Review and interpretation [x] Patient assessment and monitoring of vital signs [x] Documentation [x] Medication orders and management History Interval history: Patient seen and evaluated this morning medical records reviewed Status post tracheostomy remains intubated vent dependent He takes secretions through the tracheostomy tube Unresponsive , no new events reported by the nursing staff vital signs reviewed Hospitalist Physical - Constitutional Vitals: Temp Pulse Resp BP Pulse Ox 99.1 F 105 H 26 H 103/61 99 04/21/17 12:00 04/21/17 17:00 04/21/17 17:00 04/21/17 17:00 04/21/17 17:00 General appearance: Present: no acute distress, well-nourished, other ( tracheostomy on ventilatory support) - EENT Eyes: Present: PERRL, EOM intact - Neck Neck: Present: supple, normal ROM - Respiratory Respiratory effort: normal Respiratory: bilateral: diminished, rhonchi, negative: rales, wheezing - Cardiovascular Rhythm: regular Heart Sounds: Present: S1 & S2 (tachycardia ) - Extremities Extremities: no ischemia Extremity abnormal: edema - Abdominal General gastrointestinal: soft, non-tender, non-distended, normal bowel sounds, other (PEG in place) - Integumentary Integumentary: Present: clear, warm - Psychiatric Psychiatric: other (unresponsive) - Neurologic Neurologic: other (unresponsive) Results - Labs CBC & Chem 7: 04/20/17 03:35 04/20/17 03:35 Labs: Laboratory Last Values WBC 9.0 K/mm3 (4.5-11.0) 04/20/17 03:35 RBC 3.34 M/mm3 (3.65-5.03) L 04/20/17 03:35 Hgb 10.4 gm/dl (11.8-15.2) L 04/20/17 03:35 Hct 31.6 % (35.5-45.6) L 04/20/17 03:35 MCV 95 fl (84-94) H 04/20/17 03:35 MCH 31 pg (28-32) 04/20/17 03:35 MCHC 33 % (32-34) 04/20/17 03:35 RDW 14.3 % (13.2-15.2) 04/20/17 03:35 Plt Count 145 K/mm3 (140-440) 04/20/17 03:35 Lymph % (Auto) 12.9 % (13.4-35.0) L 04/20/17 03:35 [place] % (Auto) 6.1 % (0.0-7.3) 04/20/17 03:35 Eos % (Auto) 3.1 % (0.0-4.3) 04/20/17 03:35 Baso % (Auto) 0.6 % (0.0-1.8) 04/20/17 03:35 Lymph # 1.2 K/mm3 (1.2-5.4) 04/20/17 03:35 [place] # 0.5 K/mm3 (0.0-0.8) 04/20/17 03:35 Eos # 0.3 K/mm3 (0.0-0.4) 04/20/17 03:35 Baso # 0.1 K/mm3 (0.0-0.1) 04/20/17 03:35 Add Manual Diff Complete 03/30/17 03:50 Total Counted 100 03/30/17 03:50 Seg Neutrophils % 77.3 % (40.0-70.0) H 04/20/17 03:35 Seg Neuts % (Manual) 65.0 % (40.0-70.0) 03/30/17 03:50 Band Neutrophils % 17.0 % 03/30/17 03:50 Lymphocytes % (Manual) 7.0 % (13.4-35.0) L 03/30/17 03:50 Reactive Lymphs % (Man) 0 % 03/30/17 03:50 Monocytes % (Manual) 7.0 % (0.0-7.3) 03/30/17 03:50 Eosinophils % (Manual) 0 % (0.0-4.3) 03/30/17 03:50 Basophils % (Manual) 0 % (0.0-1.8) 03/30/17 03:50 Metamyelocytes % 4.0 % 03/30/17 03:50 Myelocytes % 0 % 03/30/17 03:50 Promyelocytes % 0 % 03/30/17 03:50 Blast Cells % 0 % 03/30/17 03:50 Nucleated RBC % Not Reportable 03/30/17 03:50 Seg Neutrophils # 7.0 K/mm3 (1.8-7.7) 04/20/17 03:35 Seg Neutrophils # Man 12.7 K/mm3 (1.8-7.7) H 03/30/17 03:50 Band Neutrophils # 3.3 K/mm3 03/30/17 03:50 Lymphocytes # (Manual) 1.4 K/mm3 (1.2-5.4) 03/30/17 03:50 Abs React Lymphs (Man) 0.0 K/mm3 03/30/17 03:50 Monocytes # (Manual) 1.4 K/mm3 (0.0-0.8) H 03/30/17 03:50 Eosinophils # (Manual) 0.0 K/mm3 (0.0-0.4) 03/30/17 03:50 Basophils # (Manual) 0.0 K/mm3 (0.0-0.1) 03/30/17 03:50 Metamyelocytes # 0.8 K/mm3 03/30/17 03:50 Myelocytes # 0.0 K/mm3 03/30/17 03:50 Promyelocytes # 0.0 K/mm3 03/30/17 03:50 Blast Cells # 0.0 K/mm3 03/30/17 03:50 WBC Morphology Not Reportable 03/30/17 03:50 Hypersegmented Neuts Not Reportable 03/30/17 03:50 Hyposegmented Neuts Not Reportable 03/30/17 03:50 Hypogranular Neuts Not Reportable 03/30/17 03:50 Smudge Cells Not Reportable 03/30/17 03:50 Toxic Granulation Not Reportable 03/30/17 03:50 Toxic Vacuolation Not Reportable 03/30/17 03:50 Dohle Bodies Not Reportable 03/30/17 03:50 Pelger-Huet Anomaly Not Reportable 03/30/17 03:50 Sherry Rods Not Reportable 03/30/17 03:50 Platelet Estimate Appears normal 03/30/17 03:50 Clumped Platelets Not Reportable 03/30/17 03:50 Plt Clumps, EDTA Not Reportable 03/30/17 03:50 Large Platelets Not Reportable 03/30/17 03:50 Giant Platelets Not Reportable 03/30/17 03:50 Platelet Satelliting Not Reportable 03/30/17 03:50 Plt Morphology Comment Not Reportable 03/30/17 03:50 RBC Morphology Not Reportable 03/30/17 03:50 Dimorphic RBCs Not Reportable 03/30/17 03:50 Polychromasia Not Reportable 03/30/17 03:50 Hypochromasia Not Reportable 03/30/17 03:50 Poikilocytosis Not Reportable 03/30/17 03:50 Anisocytosis Few 03/30/17 03:50 Microcytosis Not Reportable 03/30/17 03:50 Macrocytosis Not Reportable 03/30/17 03:50 Spherocytes Not Reportable 03/30/17 03:50 Pappenheimer Bodies Not Reportable 03/30/17 03:50 Sickle Cells Not Reportable 03/30/17 03:50 Target Cells Not Reportable 03/30/17 03:50 Tear Drop Cells Not Reportable 03/30/17 03:50 Ovalocytes Not Reportable 03/30/17 03:50 Helmet Cells Not Reportable 03/30/17 03:50 [place] Bodies Not Reportable 03/30/17 03:50 [place] Rings Not Reportable 03/30/17 03:50 Nusrat Cells Not Reportable 03/30/17 03:50 Bite Cells Not Reportable 03/30/17 03:50 Crenated Cell Not Reportable 03/30/17 03:50 Elliptocytes Not Reportable 03/30/17 03:50 Acanthocytes (Spur) Not Reportable 03/30/17 03:50 Rouleaux Not Reportable 03/30/17 03:50 Hemoglobin C Crystals Not Reportable 03/30/17 03:50 Schistocytes Not Reportable 03/30/17 03:50 Malaria parasites Not Reportable 03/30/17 03:50 Jerm[place] Bodies Not Reportable 03/30/17 03:50 Hem Pathologist Commnt No 03/30/17 03:50 PT 14.9 Sec. (12.2-14.9) 04/10/17 04:16 INR 1.11 (0.87-1.13) 04/10/17 04:16 APTT 27.8 Sec. (24.2-36.6) 04/10/17 04:16 Activated Clotting Time 92 (74-137) 03/29/17 17:47 POC ABG pH 7.516 (7.35-7.45) H 04/19/17 06:50 POC ABG pCO2 28.0 (35-45) L 04/19/17 06:50 POC ABG pO2 81 (80-105) 04/19/17 06:50 POC ABG HCO3 22.7 04/19/17 06:50 POC ABG Total CO2 24 04/19/17 06:50 POC ABG O2 Sat 97 04/19/17 06:50 POC ABG Base Excess 0 04/19/17 06:50 FiO2 30 % 04/19/17 06:50 Sodium 140 mmol/L (137-145) 04/20/17 03:35 Potassium 3.7 mmol/L (3.6-5.0) 04/20/17 03:35 Chloride 103.3 mmol/L (98-107) 04/20/17 03:35 Carbon Dioxide 23 mmol/L (22-30) 04/20/17 03:35 Anion Gap 17 mmol/L 04/20/17 03:35 BUN 20 mg/dL (9-20) 04/20/17 03:35 Creatinine 0.3 mg/dL (0.8-1.5) L 04/20/17 03:35 Estimated GFR > 60 ml/min 04/20/17 03:35 BUN/Creatinine Ratio 67 % 04/20/17 03:35 Glucose 155 mg/dL (75-100) H 04/20/17 03:35 POC Glucose 152 (70-105) H 04/21/17 06:00 Calcium 7.8 mg/dL (8.4-10.2) L 04/20/17 03:35 Phosphorus 3.50 mg/dL (2.5-4.5) 04/13/17 04:45 Magnesium 1.90 mg/dL (1.7-2.3) 04/18/17 03:55 Total Bilirubin 1.00 mg/dL (0.1-1.2) 04/15/17 05:15 Direct Bilirubin 0.4 mg/dL (0-0.2) H 04/15/17 05:15 Indirect Bilirubin 0.6 mg/dL 04/15/17 05:15 AST 149 units/L (5-40) H 04/15/17 05:15 ALT 182 units/L (7-56) H 04/15/17 05:15 Alkaline Phosphatase 143 units/L (35-129) H 04/15/17 05:15 Total Creatine Kinase 1404 units/L (55-170) H 04/12/17 21:36 CK-MB (CK-2) 8.0 ng/mL (0.0-4.0) H 04/12/17 21:36 CK-MB (CK-2) Rel Index 0.5 (0-4) 04/12/17 21:36 Troponin T 0.767 ng/mL (0.00-0.029) H* 04/12/17 21:36 C-Reactive Protein 21.80 mg/dL (0.00-1.30) H 03/30/17 16:04 Total Protein 6.4 g/dL (6.3-8.2) 04/15/17 05:15 Albumin 2.5 g/dL (3.9-5) L 04/15/17 05:15 Albumin/Globulin Ratio 0.6 % 04/15/17 05:15 Triglycerides 151 mg/dL (2-149) H 04/01/17 04:29 Cholesterol 164 mg/dL (50-199) 03/29/17 19:52 LDL Cholesterol Direct 81 mg/dL (50-130) 03/29/17 19:52 HDL Cholesterol 44 mg/dL (40-59) 03/29/17 19:52 Cholesterol/HDL Ratio 3.72 % 03/29/17 19:52 Urine Color [place] (Yellow) 04/14/17 11:06 Urine Turbidity Slightly-cloudy (Clear) 04/14/17 11:06 Urine pH 5.0 (5.0-7.0) 04/14/17 11:06 Ur Specific [place] 1.033 (1.003-1.030) H 04/14/17 11:06 Urine Protein 100 mg/dl mg/dL (Negative) 04/14/17 11:06 Urine Glucose (UA) Neg mg/dL (Negative) 04/14/17 11:06 Urine Ketones Neg mg/dL (Negative) 04/14/17 11:06 Urine Blood Lg (Negative) 04/14/17 11:06 Urine Nitrite Pos (Negative) 04/14/17 11:06 Urine Bilirubin Neg (Negative) 04/14/17 11:06 Urine Urobilinogen 4.0 mg/dL (<2.0) 04/14/17 11:06 Ur Leukocyte Esterase Mod (Negative) 04/14/17 11:06 Urine WBC (Auto) > 182.0 /HPF (0.0-6.0) H 04/14/17 11:06 Urine RBC (Auto) > 182.0 /HPF (0.0-6.0) 04/14/17 11:06 Amorphous Crystals 1+ 03/30/17 09:45 Urine Mucus Few /HPF 04/14/17 11:06 Urine Opiates Screen Presumptive negative 03/30/17 09:45 Urine Methadone Screen Presumptive negative 03/30/17 09:45 Ur Barbiturates Screen Presumptive negative 03/30/17 09:45 Ur Phencyclidine Scrn Presumptive negative 03/30/17 09:45 Ur Amphetamines Screen Presumptive positive 03/30/17 09:45 U Benzodiazepines Scrn Presumptive positive 03/30/17 09:45 Urine Cocaine Screen Presumptive negative 03/30/17 09:45 U Marijuana (THC) Screen Presumptive negative 03/30/17 09:45 Drugs of Abuse Note Disclamer 03/30/17 09:45 Blood Type O POSITIVE 03/29/17 11:35 Antibody Screen Negative 03/29/17 11:35
[2017-04-21] MEDS ORDERED: MAXIPIME/NS 2 GM/100 ML 2 GM/100 ML BAG IV SCH (22:00)
[2017-04-21 22:46] LABS: Bilirubin,Urine NEG (Negative); Blood,Urine MOD (Negative); Color,Urine Amber (Yellow); Mucus,Urine 3+ /HPF
[2017-04-21] MEDS: MAXIPIME 2 GM in NACL 0.9% 20 ML IV SCH (23:33)
[2017-04-22] MEDS: LOPRESSOR PO SCH ×4 (00:02→17:54)
[2017-04-22] MEDS ORDERED: CATHFLO IV ONE (00:27)
[2017-04-22] MEDS: NOVOLOG SUB-Q SCH ×4 (00:54→18:03)
[2017-04-22] MEDS: MAXIPIME 2 GM in NACL 0.9% 20 ML IV SCH ×3 (09:15→22:22)
[2017-04-22] MEDS: ASPIRIN PO SCH (09:56)
[2017-04-22] MEDS: PLAVIX PO SCH (09:56)
[2017-04-22] MEDS: HEPARIN SUB-Q SCH ×2 (09:57→22:08)
[2017-04-22] MEDS: PROTONIX FEEDTUBE SCH (09:57)
[2017-04-22] MEDS: COLACE FEEDTUBE SCH ×2 (09:57→22:08)
[2017-04-22] MEDS: LASIX PO SCH (09:57)
--- NOTE | 2017-04-22 12:40 | Progress Note ---
Assessment and Plan - Patient Problems (1) Acute respiratory failure Current Visit: Yes Status: Acute (2) Anoxic brain injury Current Visit: Yes Status: Acute (3) CAD (coronary artery disease) Current Visit: Yes Status: Acute Qualifiers: Coronary Disease-Associated Artery/Lesion type: [place] artery [place] vs. transplanted heart: [place] heart Associated angina: with unstable angina Qualified Code(s): I25.110 - Atherosclerotic heart disease of [place] coronary artery with unstable angina pectoris (4) Cardiac arrest Current Visit: Yes Status: Acute Subjective Principal diagnosis: septic shock Interval history: on vent increase in secretion Objective Vital Signs - 12hr 04/22/17 04/22/17 04/22/17 01:00 02:00 03:00 Temperature Pulse Rate 100 H 103 H 99 H Pulse Rate [ From Monitor] Respiratory 28 H 29 H 28 H Rate Blood Pressure 100/54 102/59 102/65 O2 Sat by Pulse 98 Oximetry O2 Sat by Pulse Oximetry [ Assessment] 04/22/17 04/22/17 04/22/17 04:00 05:00 06:00 Temperature 100.8 F H Pulse Rate 94 H 99 H 102 H Pulse Rate [ 98 H From Monitor] Respiratory 26 H 29 H 24 Rate Blood Pressure 102/67 102/66 105/65 O2 Sat by Pulse 97 95 97 Oximetry O2 Sat by Pulse 97 Oximetry [ Assessment] 04/22/17 04/22/17 04/22/17 07:00 07:41 08:00 Temperature 101.0 F H Pulse Rate 99 H 100 H 98 H Pulse Rate [ From Monitor] Respiratory 27 H 28 H Rate Blood Pressure 100/64 100/64 99/62 O2 Sat by Pulse 97 Oximetry O2 Sat by Pulse Oximetry [ Assessment] 04/22/17 04/22/17 04/22/17 09:00 10:00 11:00 Temperature Pulse Rate 99 H 105 H 104 H Pulse Rate [ From Monitor] Respiratory 25 H 27 H 33 H Rate Blood Pressure 102/63 105/65 104/58 O2 Sat by Pulse 86 Oximetry O2 Sat by Pulse Oximetry [ Assessment] 04/22/17 04/22/17 11:37 12:00 Temperature 99.6 F Pulse Rate 101 H Pulse Rate [ From Monitor] Respiratory 29 H Rate Blood Pressure 99/63 O2 Sat by Pulse 90 Oximetry O2 Sat by Pulse Oximetry [ Assessment] Constitutional: comatose Eyes: non-icteric ENT: oropharynx moist Neck: supple Effort: normal Ascultation: Bilateral: diminished breath sounds ( ), other (coarse BS bilaterally) Percussion: Bilateral: not dull Cardiovascular: regular rate and rhythm (no mrg) Gastrointestinal: normoactive bowel sounds, soft, non-tender, non-distended, other (mild distention) Integumentary: normal, other (multiple tattoos) Extremities: no cyanosis, no edema, pink and warm Neurologic: other (comatose, flaccid extremities, good cough w/ suction) Psychiatric: other (unable to assess) CBC and BMP: 04/20/17 03:35 04/20/17 03:35 ABG, PT/INR, D-dimer: ABG POC ABG pH 7.516 (7.35-7.45) H 04/19/17 06:50 POC ABG pCO2 28.0 (35-45) L 04/19/17 06:50 POC ABG pO2 81 (80-105) 04/19/17 06:50 POC ABG HCO3 22.7 04/19/17 06:50 POC ABG Total CO2 24 04/19/17 06:50 POC ABG O2 Sat 97 04/19/17 06:50 PT/INR, D-dimer PT 14.9 Sec. (12.2-14.9) 04/10/17 04:16 INR 1.11 (0.87-1.13) 04/10/17 04:16 Abnormal lab findings: Abnormal Labs 03/29/17 03/29/17 03/29/17 11:35 11:35 11:40 WBC RBC Hgb Hct MCV 98 H MCH 33 H Plt Count Lymph % (Auto) Eos % (Auto) Baso % (Auto) Lymph # Baso # Seg Neutrophils % Lymphocytes % (Manual) Monocytes % (Manual) 9.0 H Nucleated RBC % 1.0 H Seg Neutrophils # Seg Neutrophils # Man Monocytes # (Manual) 0.9 H PT 15.8 H INR 1.20 H Activated Clotting Time POC ABG pH POC ABG pCO2 POC ABG pO2 Sodium Potassium 2.7 L* Chloride 95.3 L Carbon Dioxide 17 L BUN Creatinine Glucose 435 H POC Glucose Calcium Magnesium Direct Bilirubin AST ALT Alkaline Phosphatase Total Creatine Kinase CK-MB (CK-2) CK-MB (CK-2) Rel Index Troponin T C-Reactive Protein Total Protein 6.1 L Albumin 3.5 L Triglycerides Ur Specific [place] Urine WBC (Auto) 03/29/17 03/29/17 03/29/17 12:34 13:10 13:25 WBC RBC Hgb Hct MCV MCH Plt Count Lymph % (Auto) Eos % (Auto) Baso % (Auto) Lymph # Baso # Seg Neutrophils % Lymphocytes % (Manual) Monocytes % (Manual) Nucleated RBC % Seg Neutrophils # Seg Neutrophils # Man Monocytes # (Manual) PT INR Activated Clotting Time 142 H 169 H 175 H POC ABG pH POC ABG pCO2 POC ABG pO2 Sodium Potassium Chloride Carbon Dioxide BUN Creatinine Glucose POC Glucose Calcium Magnesium Direct Bilirubin AST ALT Alkaline Phosphatase Total Creatine Kinase CK-MB (CK-2) CK-MB (CK-2) Rel Index Troponin T C-Reactive Protein Total Protein Albumin Triglycerides Ur Specific [place] Urine WBC (Auto) 03/29/17 03/29/17 03/29/17 14:50 15:18 19:52 WBC RBC Hgb Hct MCV MCH Plt Count Lymph % (Auto) Eos % (Auto) Baso % (Auto) Lymph # Baso # Seg Neutrophils % Lymphocytes % (Manual) Monocytes % (Manual) Nucleated RBC % Seg Neutrophils # Seg Neutrophils # Man Monocytes # (Manual) PT INR Activated Clotting Time 175 H POC ABG pH 7.293 L POC ABG pCO2 POC ABG pO2 602 H Sodium Potassium Chloride Carbon Dioxide BUN Creatinine Glucose POC Glucose Calcium Magnesium Direct Bilirubin AST ALT Alkaline Phosphatase Total Creatine Kinase 7263 H CK-MB (CK-2) > 300.0 H CK-MB (CK-2) Rel Index 4.1 H Troponin T 8.080 H* D C-Reactive Protein Total Protein Albumin Triglycerides 195 H Ur Specific [place] Urine WBC (Auto) 03/30/17 03/30/17 03/30/17 03:50 03:50 06:19 WBC 19.5 H RBC Hgb Hct MCV MCH Plt Count Lymph % (Auto) Eos % (Auto) Baso % (Auto) Lymph # Baso # Seg Neutrophils % Lymphocytes % (Manual) 7.0 L Monocytes % (Manual) Nucleated RBC % Seg Neutrophils # Seg Neutrophils # Man 12.7 H Monocytes # (Manual) 1.4 H PT INR Activated Clotting Time POC ABG pH POC ABG pCO2 28.2 L POC ABG pO2 108 H Sodium Potassium Chloride 108.9 H Carbon Dioxide 15 L BUN 25 H Creatinine Glucose 158 H POC Glucose Calcium 8.1 L Magnesium Direct Bilirubin AST ALT Alkaline Phosphatase Total Creatine Kinase 7963 H CK-MB (CK-2) > 300.0 H CK-MB (CK-2) Rel Index Troponin T 6.850 H* C-Reactive Protein Total Protein Albumin Triglycerides Ur Specific [place] Urine WBC (Auto) 03/30/17 03/30/17 03/31/17 09:45 16:04 02:19 WBC RBC Hgb Hct MCV MCH Plt Count Lymph % (Auto) Eos % (Auto) Baso % (Auto) Lymph # Baso # Seg Neutrophils % Lymphocytes % (Manual) Monocytes % (Manual) Nucleated RBC % Seg Neutrophils # Seg Neutrophils # Man Monocytes # (Manual) PT INR Activated Clotting Time POC ABG pH POC ABG pCO2 POC ABG pO2 Sodium Potassium Chloride Carbon Dioxide BUN Creatinine Glucose POC Glucose 137 H Calcium Magnesium Direct Bilirubin AST ALT Alkaline Phosphatase Total Creatine Kinase CK-MB (CK-2) CK-MB (CK-2) Rel Index Troponin T C-Reactive Protein 21.80 H Total Protein Albumin Triglycerides Ur Specific [place] 1.031 H Urine WBC (Auto) 03/31/17 03/31/17 03/31/17 03:57 06:54 09:22 WBC RBC Hgb Hct MCV MCH Plt Count Lymph % (Auto) Eos % (Auto) Baso % (Auto) Lymph # Baso # Seg Neutrophils % Lymphocytes % (Manual) Monocytes % (Manual) Nucleated RBC % Seg Neutrophils # Seg Neutrophils # Man Monocytes # (Manual) PT INR Activated Clotting Time POC ABG pH 7.475 H POC ABG pCO2 25.4 L POC ABG pO2 62 L Sodium Potassium Chloride Carbon Dioxide 19 L BUN 22 H Creatinine 0.6 L Glucose 148 H POC Glucose 143 H Calcium 8.3 L Magnesium Direct Bilirubin AST ALT Alkaline Phosphatase Total Creatine Kinase CK-MB (CK-2) CK-MB (CK-2) Rel Index Troponin T C-Reactive Protein Total Protein Albumin Triglycerides Ur Specific [place] Urine WBC (Auto) 03/31/17 03/31/17 03/31/17 11:40 17:47 23:38 WBC RBC Hgb Hct MCV MCH Plt Count Lymph % (Auto) Eos % (Auto) Baso % (Auto) Lymph # Baso # Seg Neutrophils % Lymphocytes % (Manual) Monocytes % (Manual) Nucleated RBC % Seg Neutrophils # Seg Neutrophils # Man Monocytes # (Manual) PT INR Activated Clotting Time POC ABG pH POC ABG pCO2 POC ABG pO2 Sodium Potassium Chloride Carbon Dioxide BUN Creatinine Glucose POC Glucose 127 H 137 H 148 H Calcium Magnesium Direct Bilirubin AST ALT Alkaline Phosphatase Total Creatine Kinase CK-MB (CK-2) CK-MB (CK-2) Rel Index Troponin T C-Reactive Protein Total Protein Albumin Triglycerides Ur Specific [place] Urine WBC (Auto) 04/01/17 04/01/17 04/01/17 04:29 05:01 11:54 WBC RBC Hgb Hct MCV MCH Plt Count Lymph % (Auto) Eos % (Auto) Baso % (Auto) Lymph # Baso # Seg Neutrophils % Lymphocytes % (Manual) Monocytes % (Manual) Nucleated RBC % Seg Neutrophils # Seg Neutrophils # Man Monocytes # (Manual) PT INR Activated Clotting Time POC ABG pH 7.513 H POC ABG pCO2 22.1 L POC ABG pO2 64 L Sodium Potassium Chloride Carbon Dioxide BUN Creatinine Glucose POC Glucose 121 H Calcium Magnesium Direct Bilirubin AST ALT Alkaline Phosphatase Total Creatine Kinase CK-MB (CK-2) CK-MB (CK-2) Rel Index Troponin T C-Reactive Protein Total Protein Albumin Triglycerides 151 H Ur Specific [place] Urine WBC (Auto) 04/01/17 04/02/17 04/02/17 18:17 00:11 04:52 WBC RBC Hgb Hct MCV MCH Plt Count Lymph % (Auto) Eos % (Auto) Baso % (Auto) Lymph # Baso # Seg Neutrophils % Lymphocytes % (Manual) Monocytes % (Manual) Nucleated RBC % Seg Neutrophils # Seg Neutrophils # Man Monocytes # (Manual) PT INR Activated Clotting Time POC ABG pH 7.524 H POC ABG pCO2 25.5 L POC ABG pO2 66 L Sodium Potassium Chloride Carbon Dioxide BUN Creatinine Glucose POC Glucose 117 H 122 H Calcium Magnesium Direct Bilirubin AST ALT Alkaline Phosphatase Total Creatine Kinase CK-MB (CK-2) CK-MB (CK-2) Rel Index Troponin T C-Reactive Protein Total Protein Albumin Triglycerides Ur Specific [place] Urine WBC (Auto) 04/02/17 04/02/17 04/02/17 05:18 10:41 12:19 WBC RBC Hgb Hct MCV MCH Plt Count Lymph % (Auto) Eos % (Auto) Baso % (Auto) Lymph # Baso # Seg Neutrophils % Lymphocytes % (Manual) Monocytes % (Manual) Nucleated RBC % Seg Neutrophils # Seg Neutrophils # Man Monocytes # (Manual) PT INR Activated Clotting Time POC ABG pH 7.534 H POC ABG pCO2 27.4 L POC ABG pO2 Sodium Potassium Chloride Carbon Dioxide BUN Creatinine Glucose POC Glucose 132 H 129 H Calcium Magnesium Direct Bilirubin AST ALT Alkaline Phosphatase Total Creatine Kinase CK-MB (CK-2) CK-MB (CK-2) Rel Index Troponin T C-Reactive Protein Total Protein Albumin Triglycerides Ur Specific [place] Urine WBC (Auto) 04/02/17 04/03/17 04/03/17 18:05 00:08 05:09 WBC RBC Hgb Hct MCV MCH Plt Count Lymph % (Auto) Eos % (Auto) Baso % (Auto) Lymph # Baso # Seg Neutrophils % Lymphocytes % (Manual) Monocytes % (Manual) Nucleated RBC % Seg Neutrophils # Seg Neutrophils # Man Monocytes # (Manual) PT INR Activated Clotting Time POC ABG pH 7.455 H POC ABG pCO2 33.2 L POC ABG pO2 120 H Sodium Potassium Chloride Carbon Dioxide BUN Creatinine Glucose POC Glucose 136 H 128 H Calcium Magnesium Direct Bilirubin AST ALT Alkaline Phosphatase Total Creatine Kinase CK-MB (CK-2) CK-MB (CK-2) Rel Index Troponin T C-Reactive Protein Total Protein Albumin Triglycerides Ur Specific [place] Urine WBC (Auto) 04/03/17 04/03/17 04/03/17 06:32 11:54 12:16 WBC 11.9 H RBC Hgb Hct MCV MCH Plt Count 125 L Lymph % (Auto) 4.8 L Eos % (Auto) Baso % (Auto) Lymph # 0.6 L Baso # Seg Neutrophils % 86.7 H Lymphocytes % (Manual) Monocytes % (Manual) Nucleated RBC % Seg Neutrophils # 10.3 H Seg Neutrophils # Man Monocytes # (Manual) PT INR Activated Clotting Time POC ABG pH POC ABG pCO2 POC ABG pO2 Sodium Potassium Chloride Carbon Dioxide BUN Creatinine Glucose POC Glucose 138 H 143 H Calcium Magnesium Direct Bilirubin AST ALT Alkaline Phosphatase Total Creatine Kinase CK-MB (CK-2) CK-MB (CK-2) Rel Index Troponin T C-Reactive Protein Total Protein Albumin Triglycerides Ur Specific [place] Urine WBC (Auto) 04/03/17 04/03/17 04/04/17 17:33 23:59 04:34 WBC RBC Hgb Hct MCV MCH Plt Count Lymph % (Auto) Eos % (Auto) Baso % (Auto) Lymph # Baso # Seg Neutrophils % Lymphocytes % (Manual) Monocytes % (Manual) Nucleated RBC % Seg Neutrophils # Seg Neutrophils # Man Monocytes # (Manual) PT INR Activated Clotting Time POC ABG pH 7.457 H POC ABG pCO2 29.8 L POC ABG pO2 76 L Sodium Potassium Chloride Carbon Dioxide BUN Creatinine Glucose POC Glucose 130 H 155 H Calcium Magnesium Direct Bilirubin AST ALT Alkaline Phosphatase Total Creatine Kinase CK-MB (CK-2) CK-MB (CK-2) Rel Index Troponin T C-Reactive Protein Total Protein Albumin Triglycerides Ur Specific [place] Urine WBC (Auto) 04/04/17 04/04/17 04/04/17 05:27 12:22 18:18 WBC RBC Hgb Hct MCV MCH Plt Count Lymph % (Auto) Eos % (Auto) Baso % (Auto) Lymph # Baso # Seg Neutrophils % Lymphocytes % (Manual) Monocytes % (Manual) Nucleated RBC % Seg Neutrophils # Seg Neutrophils # Man Monocytes # (Manual) PT INR Activated Clotting Time POC ABG pH POC ABG pCO2 POC ABG pO2 Sodium Potassium Chloride Carbon Dioxide BUN Creatinine Glucose POC Glucose 164 H 146 H 130 H Calcium Magnesium Direct Bilirubin AST ALT Alkaline Phosphatase Total Creatine Kinase CK-MB (CK-2) CK-MB (CK-2) Rel Index Troponin T C-Reactive Protein Total Protein Albumin Triglycerides Ur Specific [place] Urine WBC (Auto) 04/05/17 04/05/17 04/05/17 04:43 05:28 11:36 WBC RBC Hgb Hct MCV MCH Plt Count Lymph % (Auto) Eos % (Auto) Baso % (Auto) Lymph # Baso # Seg Neutrophils % Lymphocytes % (Manual) Monocytes % (Manual) Nucleated RBC % Seg Neutrophils # Seg Neutrophils # Man Monocytes # (Manual) PT INR Activated Clotting Time POC ABG pH 7.479 H POC ABG pCO2 33.5 L POC ABG pO2 76 L Sodium Potassium Chloride Carbon Dioxide BUN Creatinine Glucose POC Glucose 145 H 136 H Calcium Magnesium Direct Bilirubin AST ALT Alkaline Phosphatase Total Creatine Kinase CK-MB (CK-2) CK-MB (CK-2) Rel Index Troponin T C-Reactive Protein Total Protein Albumin Triglycerides Ur Specific [place] Urine WBC (Auto) 04/05/17 04/06/17 04/06/17 17:58 00:16 05:26 WBC RBC Hgb Hct MCV MCH Plt Count Lymph % (Auto) Eos % (Auto) Baso % (Auto) Lymph # Baso # Seg Neutrophils % Lymphocytes % (Manual) Monocytes % (Manual) Nucleated RBC % Seg Neutrophils # Seg Neutrophils # Man Monocytes # (Manual) PT INR Activated Clotting Time POC ABG pH POC ABG pCO2 POC ABG pO2 Sodium Potassium Chloride Carbon Dioxide BUN Creatinine Glucose POC Glucose 130 H 159 H 146 H Calcium Magnesium Direct Bilirubin AST ALT Alkaline Phosphatase Total Creatine Kinase CK-MB (CK-2) CK-MB (CK-2) Rel Index Troponin T C-Reactive Protein Total Protein Albumin Triglycerides Ur Specific [place] Urine WBC (Auto) 04/06/17 04/06/17 04/07/17 13:11 16:54 11:45 WBC RBC Hgb Hct MCV MCH Plt Count Lymph % (Auto) Eos % (Auto) Baso % (Auto) Lymph # Baso # Seg Neutrophils % Lymphocytes % (Manual) Monocytes % (Manual) Nucleated RBC % Seg Neutrophils # Seg Neutrophils # Man Monocytes # (Manual) PT INR Activated Clotting Time POC ABG pH 7.517 H POC ABG pCO2 32.1 L POC ABG pO2 Sodium Potassium Chloride Carbon Dioxide BUN Creatinine Glucose POC Glucose 132 H 123 H Calcium Magnesium Direct Bilirubin AST ALT Alkaline Phosphatase Total Creatine Kinase CK-MB (CK-2) CK-MB (CK-2) Rel Index Troponin T C-Reactive Protein Total Protein Albumin Triglycerides Ur Specific [place] Urine WBC (Auto) 04/07/17 04/07/17 04/07/17 12:51 17:40 23:55 WBC RBC Hgb Hct MCV MCH Plt Count Lymph % (Auto) Eos % (Auto) Baso % (Auto) Lymph # Baso # Seg Neutrophils % Lymphocytes % (Manual) Monocytes % (Manual) Nucleated RBC % Seg Neutrophils # Seg Neutrophils # Man Monocytes # (Manual) PT INR Activated Clotting Time POC ABG pH POC ABG pCO2 POC ABG pO2 Sodium Potassium Chloride Carbon Dioxide BUN Creatinine Glucose POC Glucose 138 H 154 H 143 H Calcium Magnesium Direct Bilirubin AST ALT Alkaline Phosphatase Total Creatine Kinase CK-MB (CK-2) CK-MB (CK-2) Rel Index Troponin T C-Reactive Protein Total Protein Albumin Triglycerides Ur Specific [place] Urine WBC (Auto) 04/08/17 04/08/17 04/08/17 05:27 11:14 17:44 WBC RBC Hgb Hct MCV MCH Plt Count Lymph % (Auto) Eos % (Auto) Baso % (Auto) Lymph # Baso # Seg Neutrophils % Lymphocytes % (Manual) Monocytes % (Manual) Nucleated RBC % Seg Neutrophils # Seg Neutrophils # Man Monocytes # (Manual) PT INR Activated Clotting Time POC ABG pH POC ABG pCO2 POC ABG pO2 Sodium Potassium Chloride Carbon Dioxide BUN Creatinine Glucose POC Glucose 142 H 153 H 129 H Calcium Magnesium Direct Bilirubin AST ALT Alkaline Phosphatase Total Creatine Kinase CK-MB (CK-2) CK-MB (CK-2) Rel Index Troponin T C-Reactive Protein Total Protein Albumin Triglycerides Ur Specific [place] Urine WBC (Auto) 04/09/17 04/09/17 04/09/17 08:20 11:21 17:37 WBC RBC Hgb Hct MCV MCH Plt Count Lymph % (Auto) Eos % (Auto) Baso % (Auto) Lymph # Baso # Seg Neutrophils % Lymphocytes % (Manual) Monocytes % (Manual) Nucleated RBC % Seg Neutrophils # Seg Neutrophils # Man Monocytes # (Manual) PT INR Activated Clotting Time POC ABG pH POC ABG pCO2 POC ABG pO2 Sodium 147 H Potassium Chloride 108.8 H Carbon Dioxide BUN 39 H Creatinine 0.5 L Glucose 138 H POC Glucose 152 H 109 H Calcium Magnesium Direct Bilirubin AST ALT Alkaline Phosphatase Total Creatine Kinase CK-MB (CK-2) CK-MB (CK-2) Rel Index Troponin T C-Reactive Protein Total Protein Albumin Triglycerides Ur Specific [place] Urine WBC (Auto) 04/10/17 04/10/17 04/10/17 00:13 04:16 04:16 WBC RBC Hgb 11.5 L Hct MCV 96 H MCH Plt Count 103 L Lymph % (Auto) 11.1 L Eos % (Auto) Baso % (Auto) Lymph # Baso # Seg Neutrophils % 81.5 H Lymphocytes % (Manual) Monocytes % (Manual) Nucleated RBC % Seg Neutrophils # 8.8 H Seg Neutrophils # Man Monocytes # (Manual) PT INR Activated Clotting Time POC ABG pH POC ABG pCO2 POC ABG pO2 Sodium 148 H Potassium Chloride 109.0 H Carbon Dioxide BUN 36 H Creatinine 0.5 L Glucose 131 H POC Glucose 127 H Calcium 8.1 L Magnesium 2.40 H Direct Bilirubin AST 206 H ALT 228 H Alkaline Phosphatase 178 H Total Creatine Kinase CK-MB (CK-2) CK-MB (CK-2) Rel Index Troponin T C-Reactive Protein Total Protein Albumin 2.8 L Triglycerides Ur Specific [place] Urine WBC (Auto) 04/10/17 04/10/17 04/10/17 06:01 11:57 18:27 WBC RBC Hgb Hct MCV MCH Plt Count Lymph % (Auto) Eos % (Auto) Baso % (Auto) Lymph # Baso # Seg Neutrophils % Lymphocytes % (Manual) Monocytes % (Manual) Nucleated RBC % Seg Neutrophils # Seg Neutrophils # Man Monocytes # (Manual) PT INR Activated Clotting Time POC ABG pH POC ABG pCO2 POC ABG pO2 Sodium Potassium Chloride Carbon Dioxide BUN Creatinine Glucose POC Glucose 108 H 154 H 130 H Calcium Magnesium Direct Bilirubin AST ALT Alkaline Phosphatase Total Creatine Kinase CK-MB (CK-2) CK-MB (CK-2) Rel Index Troponin T C-Reactive Protein Total Protein Albumin Triglycerides Ur Specific [place] Urine WBC (Auto) 04/11/17 04/11/17 04/12/17 12:25 17:10 00:22 WBC RBC Hgb Hct MCV MCH Plt Count Lymph % (Auto) Eos % (Auto) Baso % (Auto) Lymph # Baso # Seg Neutrophils % Lymphocytes % (Manual) Monocytes % (Manual) Nucleated RBC % Seg Neutrophils # Seg Neutrophils # Man Monocytes # (Manual) PT INR Activated Clotting Time POC ABG pH POC ABG pCO2 POC ABG pO2 Sodium Potassium Chloride Carbon Dioxide BUN Creatinine Glucose POC Glucose 107 H 129 H 128 H Calcium Magnesium Direct Bilirubin AST ALT Alkaline Phosphatase Total Creatine Kinase CK-MB (CK-2) CK-MB (CK-2) Rel Index Troponin T C-Reactive Protein Total Protein Albumin Triglycerides Ur Specific [place] Urine WBC (Auto) 04/12/17 04/12/17 04/12/17 05:00 11:57 17:47 WBC RBC Hgb Hct MCV MCH Plt Count Lymph % (Auto) Eos % (Auto) Baso % (Auto) Lymph # Baso # Seg Neutrophils % Lymphocytes % (Manual) Monocytes % (Manual) Nucleated RBC % Seg Neutrophils # Seg Neutrophils # Man Monocytes # (Manual) PT INR Activated Clotting Time POC ABG pH POC ABG pCO2 POC ABG pO2 Sodium Potassium Chloride Carbon Dioxide BUN Creatinine Glucose POC Glucose 140 H 142 H Calcium Magnesium Direct Bilirubin AST 158 H ALT 184 H Alkaline Phosphatase 170 H Total Creatine Kinase CK-MB (CK-2) CK-MB (CK-2) Rel Index Troponin T C-Reactive Protein Total Protein Albumin 2.8 L Triglycerides Ur Specific [place] Urine WBC (Auto) 04/12/17 04/12/17 04/13/17 21:36 21:36 01:37 WBC RBC Hgb Hct MCV MCH Plt Count Lymph % (Auto) Eos % (Auto) Baso % (Auto) Lymph # Baso # Seg Neutrophils % Lymphocytes % (Manual) Monocytes % (Manual) Nucleated RBC % Seg Neutrophils # Seg Neutrophils # Man Monocytes # (Manual) PT INR Activated Clotting Time POC ABG pH POC ABG pCO2 POC ABG pO2 Sodium Potassium Chloride Carbon Dioxide BUN Creatinine Glucose POC Glucose 126 H Calcium Magnesium Direct Bilirubin AST ALT Alkaline Phosphatase Total Creatine Kinase 1404 H CK-MB (CK-2) 8.0 H CK-MB (CK-2) Rel Index Troponin T 0.767 H* C-Reactive Protein Total Protein Albumin Triglycerides Ur Specific [place] Urine WBC (Auto) 04/13/17 04/13/17 04/13/17 04:45 04:52 12:17 WBC RBC Hgb Hct MCV MCH Plt Count Lymph % (Auto) Eos % (Auto) Baso % (Auto) Lymph # Baso # Seg Neutrophils % Lymphocytes % (Manual) Monocytes % (Manual) Nucleated RBC % Seg Neutrophils # Seg Neutrophils # Man Monocytes # (Manual) PT INR Activated Clotting Time POC ABG pH POC ABG pCO2 POC ABG pO2 Sodium 148 H Potassium Chloride 112.8 H Carbon Dioxide BUN 33 H Creatinine 0.4 L Glucose 121 H POC Glucose 126 H 149 H Calcium Magnesium Direct Bilirubin AST 160 H ALT 189 H Alkaline Phosphatase 166 H Total Creatine Kinase CK-MB (CK-2) CK-MB (CK-2) Rel Index Troponin T C-Reactive Protein Total Protein Albumin 2.6 L Triglycerides Ur Specific [place] Urine WBC (Auto) 04/13/17 04/14/17 04/14/17 17:45 00:20 00:45 WBC RBC Hgb Hct MCV MCH Plt Count Lymph % (Auto) Eos % (Auto) Baso % (Auto) Lymph # Baso # Seg Neutrophils % Lymphocytes % (Manual) Monocytes % (Manual) Nucleated RBC % Seg Neutrophils # Seg Neutrophils # Man Monocytes # (Manual) PT INR Activated Clotting Time POC ABG pH POC ABG pCO2 POC ABG pO2 Sodium Potassium Chloride Carbon Dioxide BUN Creatinine Glucose POC Glucose 130 H 144 H 144 H Calcium Magnesium Direct Bilirubin AST ALT Alkaline Phosphatase Total Creatine Kinase CK-MB (CK-2) CK-MB (CK-2) Rel Index Troponin T C-Reactive Protein Total Protein Albumin Triglycerides Ur Specific [place] Urine WBC (Auto) 04/14/17 04/14/17 04/14/17 05:40 11:06 11:31 WBC RBC Hgb Hct MCV MCH Plt Count Lymph % (Auto) Eos % (Auto) Baso % (Auto) Lymph # Baso # Seg Neutrophils % Lymphocytes % (Manual) Monocytes % (Manual) Nucleated RBC % Seg Neutrophils # Seg Neutrophils # Man Monocytes # (Manual) PT INR Activated Clotting Time POC ABG pH POC ABG pCO2 POC ABG pO2 Sodium Potassium Chloride Carbon Dioxide BUN Creatinine Glucose POC Glucose 139 H 123 H Calcium Magnesium Direct Bilirubin AST ALT Alkaline Phosphatase Total Creatine Kinase CK-MB (CK-2) CK-MB (CK-2) Rel Index Troponin T C-Reactive Protein Total Protein Albumin Triglycerides Ur Specific [place] 1.033 H Urine WBC (Auto) > 182.0 H 04/14/17 04/14/17 04/15/17 18:00 23:52 05:15 WBC 12.5 H RBC 3.38 L Hgb 10.6 L Hct 32.7 L MCV 97 H MCH Plt Count 107 L Lymph % (Auto) 8.7 L Eos % (Auto) Baso % (Auto) Lymph # 1.1 L Baso # Seg Neutrophils % 86.1 H Lymphocytes % (Manual) Monocytes % (Manual) Nucleated RBC % Seg Neutrophils # 10.7 H Seg Neutrophils # Man Monocytes # (Manual) PT INR Activated Clotting Time POC ABG pH POC ABG pCO2 POC ABG pO2 Sodium Potassium Chloride Carbon Dioxide BUN Creatinine Glucose POC Glucose 133 H 133 H Calcium Magnesium Direct Bilirubin AST ALT Alkaline Phosphatase Total Creatine Kinase CK-MB (CK-2) CK-MB (CK-2) Rel Index Troponin T C-Reactive Protein Total Protein Albumin Triglycerides Ur Specific [place] Urine WBC (Auto) 04/15/17 04/15/17 04/15/17 05:15 05:25 11:50 WBC RBC Hgb Hct MCV MCH Plt Count Lymph % (Auto) Eos % (Auto) Baso % (Auto) Lymph # Baso # Seg Neutrophils % Lymphocytes % (Manual) Monocytes % (Manual) Nucleated RBC % Seg Neutrophils # Seg Neutrophils # Man Monocytes # (Manual) PT INR Activated Clotting Time POC ABG pH POC ABG pCO2 POC ABG pO2 Sodium 149 H Potassium 3.5 L Chloride 114.1 H Carbon Dioxide 21 L BUN 29 H Creatinine 0.4 L Glucose 128 H POC Glucose 133 H 107 H Calcium 8.3 L Magnesium Direct Bilirubin 0.4 H AST 149 H ALT 182 H Alkaline Phosphatase 143 H Total Creatine Kinase CK-MB (CK-2) CK-MB (CK-2) Rel Index Troponin T C-Reactive Protein Total Protein Albumin 2.5 L Triglycerides Ur Specific [place] Urine WBC (Auto) 04/15/17 04/16/17 04/16/17 16:55 00:02 03:17 WBC RBC 3.39 L Hgb 10.5 L Hct 32.4 L MCV 96 H MCH Plt Count 106 L Lymph % (Auto) 6.7 L Eos % (Auto) Baso % (Auto) Lymph # 0.6 L Baso # Seg Neutrophils % 86.8 H Lymphocytes % (Manual) Monocytes % (Manual) Nucleated RBC % Seg Neutrophils # 8.2 H Seg Neutrophils # Man Monocytes # (Manual) PT INR Activated Clotting Time POC ABG pH POC ABG pCO2 POC ABG pO2 Sodium Potassium Chloride Carbon Dioxide BUN Creatinine Glucose POC Glucose 146 H 148 H Calcium Magnesium Direct Bilirubin AST ALT Alkaline Phosphatase Total Creatine Kinase CK-MB (CK-2) CK-MB (CK-2) Rel Index Troponin T C-Reactive Protein Total Protein Albumin Triglycerides Ur Specific [place] Urine WBC (Auto) 04/16/17 04/16/17 04/16/17 03:17 05:19 11:13 WBC RBC Hgb Hct MCV MCH Plt Count Lymph % (Auto) Eos % (Auto) Baso % (Auto) Lymph # Baso # Seg Neutrophils % Lymphocytes % (Manual) Monocytes % (Manual) Nucleated RBC % Seg Neutrophils # Seg Neutrophils # Man Monocytes # (Manual) PT INR Activated Clotting Time POC ABG pH POC ABG pCO2 POC ABG pO2 Sodium 149 H Potassium Chloride 111.1 H Carbon Dioxide 20 L BUN 27 H Creatinine 0.3 L Glucose 156 H POC Glucose 171 H 169 H Calcium 8.3 L Magnesium Direct Bilirubin AST ALT Alkaline Phosphatase Total Creatine Kinase CK-MB (CK-2) CK-MB (CK-2) Rel Index Troponin T C-Reactive Protein Total Protein Albumin Triglycerides Ur Specific [place] Urine WBC (Auto) 04/16/17 04/17/17 04/17/17 17:03 00:00 05:09 WBC RBC Hgb Hct MCV MCH Plt Count Lymph % (Auto) Eos % (Auto) Baso % (Auto) Lymph # Baso # Seg Neutrophils % Lymphocytes % (Manual) Monocytes % (Manual) Nucleated RBC % Seg Neutrophils # Seg Neutrophils # Man Monocytes # (Manual) PT INR Activated Clotting Time POC ABG pH POC ABG pCO2 POC ABG pO2 Sodium Potassium Chloride Carbon Dioxide BUN Creatinine Glucose POC Glucose 151 H 165 H 145 H Calcium Magnesium Direct Bilirubin AST ALT Alkaline Phosphatase Total Creatine Kinase CK-MB (CK-2) CK-MB (CK-2) Rel Index Troponin T C-Reactive Protein Total Protein Albumin Triglycerides Ur Specific [place] Urine WBC (Auto) 04/17/17 04/17/17 04/18/17 11:38 17:47 00:01 WBC RBC Hgb Hct MCV MCH Plt Count Lymph % (Auto) Eos % (Auto) Baso % (Auto) Lymph # Baso # Seg Neutrophils % Lymphocytes % (Manual) Monocytes % (Manual) Nucleated RBC % Seg Neutrophils # Seg Neutrophils # Man Monocytes # (Manual) PT INR Activated Clotting Time POC ABG pH POC ABG pCO2 POC ABG pO2 Sodium Potassium Chloride Carbon Dioxide BUN Creatinine Glucose POC Glucose 170 H 161 H 131 H Calcium Magnesium Direct Bilirubin AST ALT Alkaline Phosphatase Total Creatine Kinase CK-MB (CK-2) CK-MB (CK-2) Rel Index Troponin T C-Reactive Protein Total Protein Albumin Triglycerides Ur Specific [place] Urine WBC (Auto) 04/18/17 04/18/17 04/18/17 03:55 03:55 05:30 WBC RBC 3.05 L Hgb 9.8 L Hct 29.0 L MCV 95 H MCH Plt Count 113 L Lymph % (Auto) Eos % (Auto) 5.3 H Baso % (Auto) Lymph # Baso # Seg Neutrophils % 71.5 H Lymphocytes % (Manual) Monocytes % (Manual) Nucleated RBC % Seg Neutrophils # Seg Neutrophils # Man Monocytes # (Manual) PT INR Activated Clotting Time POC ABG pH 7.460 H POC ABG pCO2 30.8 L POC ABG pO2 129 H Sodium Potassium Chloride Carbon Dioxide 21 L BUN 25 H Creatinine 0.4 L Glucose 123 H POC Glucose Calcium 8.3 L Magnesium Direct Bilirubin AST ALT Alkaline Phosphatase Total Creatine Kinase CK-MB (CK-2) CK-MB (CK-2) Rel Index Troponin T C-Reactive Protein Total Protein Albumin Triglycerides Ur Specific [place] Urine WBC (Auto) 04/18/17 04/18/17 04/19/17 17:10 23:40 04:36 WBC RBC 3.21 L Hgb 10.2 L Hct 30.4 L MCV 95 H MCH Plt Count 131 L Lymph % (Auto) 12.1 L Eos % (Auto) 4.7 H Baso % (Auto) 2.4 H Lymph # 0.9 L Baso # 0.2 H Seg Neutrophils % 75.0 H Lymphocytes % (Manual) Monocytes % (Manual) Nucleated RBC % Seg Neutrophils # Seg Neutrophils # Man Monocytes # (Manual) PT INR Activated Clotting Time POC ABG pH POC ABG pCO2 POC ABG pO2 Sodium Potassium Chloride Carbon Dioxide BUN Creatinine Glucose POC Glucose 135 H 157 H Calcium Magnesium Direct Bilirubin AST ALT Alkaline Phosphatase Total Creatine Kinase CK-MB (CK-2) CK-MB (CK-2) Rel Index Troponin T C-Reactive Protein Total Protein Albumin Triglycerides Ur Specific [place] Urine WBC (Auto) 04/19/17 04/19/17 04/19/17 04:36 05:12 06:50 WBC RBC Hgb Hct MCV MCH Plt Count Lymph % (Auto) Eos % (Auto) Baso % (Auto) Lymph # Baso # Seg Neutrophils % Lymphocytes % (Manual) Monocytes % (Manual) Nucleated RBC % Seg Neutrophils # Seg Neutrophils # Man Monocytes # (Manual) PT INR Activated Clotting Time POC ABG pH 7.516 H POC ABG pCO2 28.0 L POC ABG pO2 Sodium Potassium Chloride Carbon Dioxide 21 L BUN 23 H Creatinine 0.2 L Glucose 137 H POC Glucose 131 H Calcium 7.9 L Magnesium Direct Bilirubin AST ALT Alkaline Phosphatase Total Creatine Kinase CK-MB (CK-2) CK-MB (CK-2) Rel Index Troponin T C-Reactive Protein Total Protein Albumin Triglycerides Ur Specific [place] Urine WBC (Auto) 04/19/17 04/19/17 04/20/17 12:36 17:42 00:12 WBC RBC Hgb Hct MCV MCH Plt Count Lymph % (Auto) Eos % (Auto) Baso % (Auto) Lymph # Baso # Seg Neutrophils % Lymphocytes % (Manual) Monocytes % (Manual) Nucleated RBC % Seg Neutrophils # Seg Neutrophils # Man Monocytes # (Manual) PT INR Activated Clotting Time POC ABG pH POC ABG pCO2 POC ABG pO2 Sodium Potassium Chloride Carbon Dioxide BUN Creatinine Glucose POC Glucose 128 H 140 H 132 H Calcium Magnesium Direct Bilirubin AST ALT Alkaline Phosphatase Total Creatine Kinase CK-MB (CK-2) CK-MB (CK-2) Rel Index Troponin T C-Reactive Protein Total Protein Albumin Triglycerides Ur Specific [place] Urine WBC (Auto) 04/20/17 04/20/17 04/20/17 03:35 03:35 05:10 WBC RBC 3.34 L Hgb 10.4 L Hct 31.6 L MCV 95 H MCH Plt Count Lymph % (Auto) 12.9 L Eos % (Auto) Baso % (Auto) Lymph # Baso # Seg Neutrophils % 77.3 H Lymphocytes % (Manual) Monocytes % (Manual) Nucleated RBC % Seg Neutrophils # Seg Neutrophils # Man Monocytes # (Manual) PT INR Activated Clotting Time POC ABG pH POC ABG pCO2 POC ABG pO2 Sodium Potassium Chloride Carbon Dioxide BUN Creatinine 0.3 L Glucose 155 H POC Glucose 135 H Calcium 7.8 L Magnesium Direct Bilirubin AST ALT Alkaline Phosphatase Total Creatine Kinase CK-MB (CK-2) CK-MB (CK-2) Rel Index Troponin T C-Reactive Protein Total Protein Albumin Triglycerides Ur Specific [place] Urine WBC (Auto) 04/20/17 04/20/17 04/21/17 12:49 18:21 00:05 WBC RBC Hgb Hct MCV MCH Plt Count Lymph % (Auto) Eos % (Auto) Baso % (Auto) Lymph # Baso # Seg Neutrophils % Lymphocytes % (Manual) Monocytes % (Manual) Nucleated RBC % Seg Neutrophils # Seg Neutrophils # Man Monocytes # (Manual) PT INR Activated Clotting Time POC ABG pH POC ABG pCO2 POC ABG pO2 Sodium Potassium Chloride Carbon Dioxide BUN Creatinine Glucose POC Glucose 155 H 165 H 141 H Calcium Magnesium Direct Bilirubin AST ALT Alkaline Phosphatase Total Creatine Kinase CK-MB (CK-2) CK-MB (CK-2) Rel Index Troponin T C-Reactive Protein Total Protein Albumin Triglycerides Ur Specific [place] Urine WBC (Auto) 04/21/17 04/21/17 04/21/17 06:00 12:11 17:04 WBC RBC Hgb Hct MCV MCH Plt Count Lymph % (Auto) Eos % (Auto) Baso % (Auto) Lymph # Baso # Seg Neutrophils % Lymphocytes % (Manual) Monocytes % (Manual) Nucleated RBC % Seg Neutrophils # Seg Neutrophils # Man Monocytes # (Manual) PT INR Activated Clotting Time POC ABG pH POC ABG pCO2 POC ABG pO2 Sodium Potassium Chloride Carbon Dioxide BUN Creatinine Glucose POC Glucose 152 H 165 H 156 H Calcium Magnesium Direct Bilirubin AST ALT Alkaline Phosphatase Total Creatine Kinase CK-MB (CK-2) CK-MB (CK-2) Rel Index Troponin T C-Reactive Protein Total Protein Albumin Triglycerides Ur Specific [place] Urine WBC (Auto) 04/21/17 04/21/17 04/22/17 22:00 23:59 05:49 WBC RBC Hgb Hct MCV MCH Plt Count Lymph % (Auto) Eos % (Auto) Baso % (Auto) Lymph # Baso # Seg Neutrophils % Lymphocytes % (Manual) Monocytes % (Manual) Nucleated RBC % Seg Neutrophils # Seg Neutrophils # Man Monocytes # (Manual) PT INR Activated Clotting Time POC ABG pH POC ABG pCO2 POC ABG pO2 Sodium Potassium Chloride Carbon Dioxide BUN Creatinine Glucose POC Glucose 166 H 173 H Calcium Magnesium Direct Bilirubin AST ALT Alkaline Phosphatase Total Creatine Kinase CK-MB (CK-2) CK-MB (CK-2) Rel Index Troponin T C-Reactive Protein Total Protein Albumin Triglycerides Ur Specific [place] Urine WBC (Auto) 10.0 H 04/22/17 11:11 WBC RBC Hgb Hct MCV MCH Plt Count Lymph % (Auto) Eos % (Auto) Baso % (Auto) Lymph # Baso # Seg Neutrophils % Lymphocytes % (Manual) Monocytes % (Manual) Nucleated RBC % Seg Neutrophils # Seg Neutrophils # Man Monocytes # (Manual) PT INR Activated Clotting Time POC ABG pH POC ABG pCO2 POC ABG pO2 Sodium Potassium Chloride Carbon Dioxide BUN Creatinine Glucose POC Glucose 172 H Calcium Magnesium Direct Bilirubin AST ALT Alkaline Phosphatase Total Creatine Kinase CK-MB (CK-2) CK-MB (CK-2) Rel Index Troponin T C-Reactive Protein Total Protein Albumin Triglycerides Ur Specific [place] Urine WBC (Auto)
--- NOTE | 2017-04-22 14:40 | Progress Note ---
Assessment and Plan Assessment and plan: 46 YO Male with No PMH was admitted through emergency room with history of V. fib cardiac arrest status post CPR per ACLS protocol, acute respiratory failure vent dependent , had tracheostomy and PEG placement, awaiting LTAC evaluation and placement --Febrile illness; blood cultures urine and sputum cultures, continue IV antibiotics, obtain chest x-ray to rule out aspiration pneumonia Supportive care, ID following --Status post cardiac arrest: Status post CPR, --Anoxic brain injury; Poor prognosis, s/p trach and PEG --Acute hypoxic respiratory failure;s/p tracheostomy on vent --Acute anterior STEMI ; status post PCI , stable on cardiac medications per cardiology --Hypertension ; continue current antihypertensives and PRN medications --MRSA pneumonia /aspiration pneumonia , contact isolation, ID following, completed zyvox on 04/10 --Cardiogenic shock; resolved, off pressors --Hypokalemia /hypernatremia, Corrected --Tracheostomy care, PEG feeds --DVT prophylaxis; heparin --Full CODE STATUS --DC planning; multiple social issues, possible SNF/LTAC placement Patient has no payer source medicare disability application in process of being filled out by family Critical care time 32 minutes The high probability of a clinically significant, sudden or life threatening deterioration of the [Pulmonary, cardiac, renal] system(s) required my full and direct attention, intervention and personal management. The aggregate critical care time was [32] minutes. This time is in addition to time spent performing reported procedures but includes the following: [x] Data Review and interpretation [x] Patient assessment and monitoring of vital signs [x] Documentation [x] Medication orders and management History Interval history: Patient seen and examined this morning medical records reviewed Patient is febrile MAXIMUM TEMPERATURE and 100.8F thick secretions from the trach tube Vital signs reviewed Hospitalist Physical - Constitutional Vitals: Temp Pulse Resp BP Pulse Ox 99.6 F 99 H 29 H 96/56 94 04/22/17 11:37 04/22/17 12:00 04/22/17 12:00 04/22/17 12:00 04/22/17 12:00 General appearance: Present: no acute distress, well-nourished, other ( tracheostomy on ventilatory support) - EENT Eyes: Present: PERRL, EOM intact - Neck Neck: Present: supple, normal ROM - Respiratory Respiratory effort: normal Respiratory: bilateral: diminished, rhonchi, negative: rales, wheezing - Cardiovascular Rhythm: regular (tachycardia) Heart Sounds: Present: S1 & S2 - Extremities Extremities: no ischemia, No edema - Abdominal General gastrointestinal: soft, non-tender, non-distended, normal bowel sounds, other (PEG tube in place) - Integumentary Integumentary: Present: clear, warm - Psychiatric Psychiatric: other (noncommunicative) - Neurologic Neurologic: other (unresponsive) Results - Labs CBC & Chem 7: 04/20/17 03:35 04/20/17 03:35 Labs: Laboratory Last Values WBC 9.0 K/mm3 (4.5-11.0) 04/20/17 03:35 RBC 3.34 M/mm3 (3.65-5.03) L 04/20/17 03:35 Hgb 10.4 gm/dl (11.8-15.2) L 04/20/17 03:35 Hct 31.6 % (35.5-45.6) L 04/20/17 03:35 MCV 95 fl (84-94) H 04/20/17 03:35 MCH 31 pg (28-32) 04/20/17 03:35 MCHC 33 % (32-34) 04/20/17 03:35 RDW 14.3 % (13.2-15.2) 04/20/17 03:35 Plt Count 145 K/mm3 (140-440) 04/20/17 03:35 Lymph % (Auto) 12.9 % (13.4-35.0) L 04/20/17 03:35 [place] % (Auto) 6.1 % (0.0-7.3) 04/20/17 03:35 Eos % (Auto) 3.1 % (0.0-4.3) 04/20/17 03:35 Baso % (Auto) 0.6 % (0.0-1.8) 04/20/17 03:35 Lymph # 1.2 K/mm3 (1.2-5.4) 04/20/17 03:35 [place] # 0.5 K/mm3 (0.0-0.8) 04/20/17 03:35 Eos # 0.3 K/mm3 (0.0-0.4) 04/20/17 03:35 Baso # 0.1 K/mm3 (0.0-0.1) 04/20/17 03:35 Add Manual Diff Complete 03/30/17 03:50 Total Counted 100 03/30/17 03:50 Seg Neutrophils % 77.3 % (40.0-70.0) H 04/20/17 03:35 Seg Neuts % (Manual) 65.0 % (40.0-70.0) 03/30/17 03:50 Band Neutrophils % 17.0 % 03/30/17 03:50 Lymphocytes % (Manual) 7.0 % (13.4-35.0) L 03/30/17 03:50 Reactive Lymphs % (Man) 0 % 03/30/17 03:50 Monocytes % (Manual) 7.0 % (0.0-7.3) 03/30/17 03:50 Eosinophils % (Manual) 0 % (0.0-4.3) 03/30/17 03:50 Basophils % (Manual) 0 % (0.0-1.8) 03/30/17 03:50 Metamyelocytes % 4.0 % 03/30/17 03:50 Myelocytes % 0 % 03/30/17 03:50 Promyelocytes % 0 % 03/30/17 03:50 Blast Cells % 0 % 03/30/17 03:50 Nucleated RBC % Not Reportable 03/30/17 03:50 Seg Neutrophils # 7.0 K/mm3 (1.8-7.7) 04/20/17 03:35 Seg Neutrophils # Man 12.7 K/mm3 (1.8-7.7) H 03/30/17 03:50 Band Neutrophils # 3.3 K/mm3 03/30/17 03:50 Lymphocytes # (Manual) 1.4 K/mm3 (1.2-5.4) 03/30/17 03:50 Abs React Lymphs (Man) 0.0 K/mm3 03/30/17 03:50 Monocytes # (Manual) 1.4 K/mm3 (0.0-0.8) H 03/30/17 03:50 Eosinophils # (Manual) 0.0 K/mm3 (0.0-0.4) 03/30/17 03:50 Basophils # (Manual) 0.0 K/mm3 (0.0-0.1) 03/30/17 03:50 Metamyelocytes # 0.8 K/mm3 03/30/17 03:50 Myelocytes # 0.0 K/mm3 03/30/17 03:50 Promyelocytes # 0.0 K/mm3 03/30/17 03:50 Blast Cells # 0.0 K/mm3 03/30/17 03:50 WBC Morphology Not Reportable 03/30/17 03:50 Hypersegmented Neuts Not Reportable 03/30/17 03:50 Hyposegmented Neuts Not Reportable 03/30/17 03:50 Hypogranular Neuts Not Reportable 03/30/17 03:50 Smudge Cells Not Reportable 03/30/17 03:50 Toxic Granulation Not Reportable 03/30/17 03:50 Toxic Vacuolation Not Reportable 03/30/17 03:50 Dohle Bodies Not Reportable 03/30/17 03:50 Pelger-Huet Anomaly Not Reportable 03/30/17 03:50 Sherry Rods Not Reportable 03/30/17 03:50 Platelet Estimate Appears normal 03/30/17 03:50 Clumped Platelets Not Reportable 03/30/17 03:50 Plt Clumps, EDTA Not Reportable 03/30/17 03:50 Large Platelets Not Reportable 03/30/17 03:50 Giant Platelets Not Reportable 03/30/17 03:50 Platelet Satelliting Not Reportable 03/30/17 03:50 Plt Morphology Comment Not Reportable 03/30/17 03:50 RBC Morphology Not Reportable 03/30/17 03:50 Dimorphic RBCs Not Reportable 03/30/17 03:50 Polychromasia Not Reportable 03/30/17 03:50 Hypochromasia Not Reportable 03/30/17 03:50 Poikilocytosis Not Reportable 03/30/17 03:50 Anisocytosis Few 03/30/17 03:50 Microcytosis Not Reportable 03/30/17 03:50 Macrocytosis Not Reportable 03/30/17 03:50 Spherocytes Not Reportable 03/30/17 03:50 Pappenheimer Bodies Not Reportable 03/30/17 03:50 Sickle Cells Not Reportable 03/30/17 03:50 Target Cells Not Reportable 03/30/17 03:50 Tear Drop Cells Not Reportable 03/30/17 03:50 Ovalocytes Not Reportable 03/30/17 03:50 Helmet Cells Not Reportable 03/30/17 03:50 [place] Bodies Not Reportable 03/30/17 03:50 Keenes Rings Not Reportable 03/30/17 03:50 Nusrat Cells Not Reportable 03/30/17 03:50 Bite Cells Not Reportable 03/30/17 03:50 Crenated Cell Not Reportable 03/30/17 03:50 Elliptocytes Not Reportable 03/30/17 03:50 Acanthocytes (Spur) Not Reportable 03/30/17 03:50 Rouleaux Not Reportable 03/30/17 03:50 Hemoglobin C Crystals Not Reportable 03/30/17 03:50 Schistocytes Not Reportable 03/30/17 03:50 Malaria parasites Not Reportable 03/30/17 03:50 Jermaine Bodies Not Reportable 03/30/17 03:50 Hem Pathologist Commnt No 03/30/17 03:50 PT 14.9 Sec. (12.2-14.9) 04/10/17 04:16 INR 1.11 (0.87-1.13) 04/10/17 04:16 APTT 27.8 Sec. (24.2-36.6) 04/10/17 04:16 Activated Clotting Time 92 (74-137) 03/29/17 17:47 POC ABG pH 7.516 (7.35-7.45) H 04/19/17 06:50 POC ABG pCO2 28.0 (35-45) L 04/19/17 06:50 POC ABG pO2 81 (80-105) 04/19/17 06:50 POC ABG HCO3 22.7 04/19/17 06:50 POC ABG Total CO2 24 04/19/17 06:50 POC ABG O2 Sat 97 04/19/17 06:50 POC ABG Base Excess 0 04/19/17 06:50 FiO2 30 % 04/19/17 06:50 Sodium 140 mmol/L (137-145) 04/20/17 03:35 Potassium 3.7 mmol/L (3.6-5.0) 04/20/17 03:35 Chloride 103.3 mmol/L (98-107) 04/20/17 03:35 Carbon Dioxide 23 mmol/L (22-30) 04/20/17 03:35 Anion Gap 17 mmol/L 04/20/17 03:35 BUN 20 mg/dL (9-20) 04/20/17 03:35 Creatinine 0.3 mg/dL (0.8-1.5) L 04/20/17 03:35 Estimated GFR > 60 ml/min 04/20/17 03:35 BUN/Creatinine Ratio 67 % 04/20/17 03:35 Glucose 155 mg/dL (75-100) H 04/20/17 03:35 POC Glucose 172 (70-105) H 04/22/17 11:11 Calcium 7.8 mg/dL (8.4-10.2) L 04/20/17 03:35 Phosphorus 3.50 mg/dL (2.5-4.5) 04/13/17 04:45 Magnesium 1.90 mg/dL (1.7-2.3) 04/18/17 03:55 Total Bilirubin 1.00 mg/dL (0.1-1.2) 04/15/17 05:15 Direct Bilirubin 0.4 mg/dL (0-0.2) H 04/15/17 05:15 Indirect Bilirubin 0.6 mg/dL 04/15/17 05:15 AST 149 units/L (5-40) H 04/15/17 05:15 ALT 182 units/L (7-56) H 04/15/17 05:15 Alkaline Phosphatase 143 units/L (35-129) H 04/15/17 05:15 Total Creatine Kinase 1404 units/L (55-170) H 04/12/17 21:36 CK-MB (CK-2) 8.0 ng/mL (0.0-4.0) H 04/12/17 21:36 CK-MB (CK-2) Rel Index 0.5 (0-4) 04/12/17 21:36 Troponin T 0.767 ng/mL (0.00-0.029) H* 04/12/17 21:36 C-Reactive Protein 21.80 mg/dL (0.00-1.30) H 03/30/17 16:04 Total Protein 6.4 g/dL (6.3-8.2) 04/15/17 05:15 Albumin 2.5 g/dL (3.9-5) L 04/15/17 05:15 Albumin/Globulin Ratio 0.6 % 04/15/17 05:15 Triglycerides 151 mg/dL (2-149) H 04/01/17 04:29 Cholesterol 164 mg/dL (50-199) 03/29/17 19:52 LDL Cholesterol Direct 81 mg/dL (50-130) 03/29/17 19:52 HDL Cholesterol 44 mg/dL (40-59) 03/29/17 19:52 Cholesterol/HDL Ratio 3.72 % 03/29/17 19:52 Urine Color [place] (Yellow) 04/21/17 22:00 Urine Turbidity Clear (Clear) 04/21/17 22:00 Urine pH 5.0 (5.0-7.0) 04/21/17 22:00 Ur Specific [place] 1.029 (1.003-1.030) 04/21/17 22:00 Urine Protein 30 mg/dl mg/dL (Negative) 04/21/17 22:00 Urine Glucose (UA) Neg mg/dL (Negative) 04/21/17 22:00 Urine Ketones Neg mg/dL (Negative) 04/21/17 22:00 Urine Blood Mod (Negative) 04/21/17 22:00 Urine Nitrite Neg (Negative) 04/21/17 22:00 Urine Bilirubin Neg (Negative) 04/21/17 22:00 Urine Urobilinogen 4.0 mg/dL (<2.0) 04/21/17 22:00 Ur Leukocyte Esterase Neg (Negative) 04/21/17 22:00 Urine WBC (Auto) 10.0 /HPF (0.0-6.0) H 04/21/17 22:00 Urine RBC (Auto) 44.0 /HPF (0.0-6.0) 04/21/17 22:00 U Epithel Cells (Auto) < 1.0 /HPF (0-13.0) 04/21/17 22:00 Amorphous Crystals 1+ 03/30/17 09:45 Urine Mucus 3+ /HPF 04/21/17 22:00 Urine Opiates Screen Presumptive negative 03/30/17 09:45 Urine Methadone Screen Presumptive negative 03/30/17 09:45 Ur Barbiturates Screen Presumptive negative 03/30/17 09:45 Ur Phencyclidine Scrn Presumptive negative 03/30/17 09:45 Ur Amphetamines Screen Presumptive positive 03/30/17 09:45 U Benzodiazepines Scrn Presumptive positive 03/30/17 09:45 Urine Cocaine Screen Presumptive negative 03/30/17 09:45 U Marijuana (THC) Screen Presumptive negative 03/30/17 09:45 Drugs of Abuse Note Disclamer 03/30/17 09:45 Blood Type O POSITIVE 03/29/17 11:35 Antibody Screen Negative 03/29/17 11:35
--- NOTE | 2017-04-22 15:16 | XRay Report ---
FINAL REPORT PROCEDURE: XR CHEST 1V AP TECHNIQUE: Chest radiograph anteroposterior view. CPT 21206 HISTORY: secretions COMPARISON: 04/05/2017 FINDINGS: Heart: Normal. Mediastinum/Vessels: Normal. Lungs/Pleural space: Patchy left lower lobe airspace opacities. No pneumothorax Bony thorax: No acute osseous abnormality. Life support devices: Tracheostomy tube has been placed, with the tip projecting 7 centimeters superior to the khurram. Right PICC line tip is in the superior vena cava. IMPRESSION: Patchy left lower lobe airspace opacity may be related to atelectasis or infiltrate
[2017-04-22] MEDS: ZESTRIL PO SCH (17:53)
--- NOTE | 2017-04-22 23:12 | Progress Note ---
Assessment and Plan - Patient Problems (1) Fever Current Visit: Yes Status: Acute (2) Anoxic brain injury Current Visit: Yes Status: Acute (3) CAD (coronary artery disease) Current Visit: Yes Status: Acute Qualifiers: Coronary Disease-Associated Artery/Lesion type: [place] artery [place] vs. transplanted heart: [place] heart Associated angina: with unstable angina Qualified Code(s): I25.110 - Atherosclerotic heart disease of [place] coronary artery with unstable angina pectoris (4) Cardiac arrest Current Visit: Yes Status: Acute Subjective Date of service: 04/22/17 Principal diagnosis: septic shock Interval history: NONVERBAL Objective Vital Signs Temp Pulse Pulse Resp BP Pulse Ox Pulse Ox 04/22/17 19:33 109 H 100/66 92 04/22/17 19:00 105 H 30 H 102/64 89 04/22/17 18:00 106 H 31 H 105/67 94 04/22/17 17:00 101 H 27 H 102/64 93 04/22/17 16:00 99.1 F 106 H 27 H 105/67 92 93 04/22/17 15:00 99 H 29 H 93/60 96 04/22/17 14:00 102 H 26 H 95/62 94 04/22/17 13:00 105 H 29 H 97/69 04/22/17 12:00 99 H 29 H 96/56 94 04/22/17 11:37 99.6 F 04/22/17 11:00 104 H 33 H 104/58 86 04/22/17 10:00 105 H 27 H 105/65 04/22/17 09:00 99 H 25 H 102/63 04/22/17 08:00 101.0 F H 98 H 28 H 99/62 04/22/17 07:41 100 H 100/64 97 04/22/17 07:00 99 H 27 H 100/64 04/22/17 06:00 102 H 24 105/65 97 04/22/17 05:00 99 H 29 H 102/66 95 04/22/17 04:00 100.8 F H 94 H 98 H 26 H 102/67 97 97 04/22/17 03:00 99 H 28 H 102/65 04/22/17 02:00 103 H 29 H 102/59 04/22/17 01:00 100 H 28 H 100/54 98 01/27/18 00:02 105 H 102/58 01/27/18 00:01 104 H 29 H 102/58 97 04/22/17 00:00 101.2 F H 102 H 30 H 102/58 96 - Physical Examination General: Other (unresponsive on the vent) HEENT: Positive: Other (unresponsive, vent) Neck: Positive: neck supple, trachea midline. Negative: JVD/HJR Cardiac: Positive: Regular Rate, Tachycardia Lungs: Positive: Rhonchi Neuro: Positive: Other (unresponsive post VF arrest) Abdomen: Positive: Soft, Active Bowel Sounds Skin: Positive: Clear Extremities: Absent: edema
[2017-04-23 06:16] LABS: Basophils % (Auto) 0.3 % (0.0-1.8); Eosinophils # (Auto) 0.2 K/mm3 (0.0-0.4); Eosinophils % (Auto) 1.9 % (0.0-4.3); Hemoglobin 9.9 gm/dl (11.8-15.2); Lymphocytes # (Auto) 0.8 K/mm3 (1.2-5.4); Mean Corpuscular HGB Conc 33 % (32-34); Mean Corpuscular Hemoglobin 31 pg (28-32); Mean Corpuscular Volume 94 fl (84-94); Monocytes # (Auto) 0.5 K/mm3 (0.0-0.8); Monocytes % (Auto) 5.3 % (0.0-7.3); Platelet Count 181 K/mm3 (140-440); Red Blood Count 3.19 M/mm3 (3.65-5.03); Red Cell Distribution Width 14.6 % (13.2-15.2)
[2017-04-23] MEDS: MAXIPIME 2 GM in NACL 0.9% 20 ML IV SCH ×3 (06:50→22:23)
[2017-04-23] MEDS: LOPRESSOR PO SCH ×3 (06:51→18:13)
[2017-04-23] MEDS: NOVOLOG SUB-Q SCH ×4 (06:51→18:13)
[2017-04-23] MEDS: PROTONIX FEEDTUBE SCH (09:56)
[2017-04-23] MEDS: PLAVIX PO SCH (09:56)
[2017-04-23] MEDS: ASPIRIN PO SCH (09:56)
[2017-04-23] MEDS: LASIX PO SCH (09:56)
[2017-04-23] MEDS: HEPARIN SUB-Q SCH ×2 (09:56→22:23)
[2017-04-23] MEDS: COLACE FEEDTUBE SCH ×2 (09:56→22:23)
--- NOTE | 2017-04-23 11:23 | Progress Note ---
Assessment and Plan Assessment and plan: 46 YO Male with No PMH was admitted through emergency room with history of V. fib cardiac arrest status post CPR per ACLS protocol, acute respiratory failure vent dependent , had tracheostomy and PEG placement, awaiting LTAC evaluation and placement --Status post cardiac arrest: Status post CPR, --Anoxic brain injury; Poor prognosis, s/p trach and PEG --Acute hypoxic respiratory failure;s/p tracheostomy on vent --Acute anterior STEMI ; status post PCI , stable on cardiac medications per cardiology --Hypertension ; continue current antihypertensives and PRN medications --Febrile illness; blood cultures urine and sputum cultures, continue IV antibiotics, --MRSA pneumonia /aspiration pneumonia , contact isolation, ID following, completed zyvox on 04/10 --Cardiogenic shock; resolved, off pressors --Hypokalemia /hypernatremia, Corrected --Tracheostomy care, PEG feeds --DVT prophylaxis; heparin --Full CODE STATUS --DC planning; multiple social issues, possible SNF/LTAC placement Patient has no payer source medicare disability application in process of being filled out by family Plan of care discussed with the patient's nurse Consults and recommendations noted Clinically no change History Interval history: Patient seen and evaluated Status post tracheostomy on vent, unresponsive Vital signs reviewed Hospitalist Physical - Constitutional Vitals: Temp Pulse Resp BP Pulse Ox 98.6 F 86 24 90/52 98 04/23/17 08:00 04/23/17 08:00 04/23/17 08:00 04/23/17 08:00 04/23/17 08:00 General appearance: Present: no acute distress, well-nourished, other ( tracheostomy on ventilatory support) - EENT Eyes: Present: PERRL, EOM intact - Neck Neck: Present: supple, normal ROM - Respiratory Respiratory effort: normal Respiratory: bilateral: diminished, rhonchi, negative: rales, wheezing - Cardiovascular Rhythm: regular Heart Sounds: Present: S1 & S2 - Extremities Extremities: no ischemia Extremity abnormal: edema - Abdominal General gastrointestinal: soft, non-tender, non-distended, normal bowel sounds - Integumentary Integumentary: Present: clear, warm - Psychiatric Psychiatric: other (unresponsive) - Neurologic Neurologic: other (unresponsive) Results - Labs CBC & Chem 7: 04/23/17 05:33 04/20/17 03:35 Labs: Laboratory Last Values WBC 9.7 K/mm3 (4.5-11.0) 04/23/17 05:33 RBC 3.19 M/mm3 (3.65-5.03) L 04/23/17 05:33 Hgb 9.9 gm/dl (11.8-15.2) L 04/23/17 05:33 Hct 30.0 % (35.5-45.6) L 04/23/17 05:33 MCV 94 fl (84-94) 04/23/17 05:33 MCH 31 pg (28-32) 04/23/17 05:33 MCHC 33 % (32-34) 04/23/17 05:33 RDW 14.6 % (13.2-15.2) 04/23/17 05:33 Plt Count 181 K/mm3 (140-440) 04/23/17 05:33 Lymph % (Auto) 8.0 % (13.4-35.0) L 04/23/17 05:33 [place] % (Auto) 5.3 % (0.0-7.3) 04/23/17 05:33 Eos % (Auto) 1.9 % (0.0-4.3) 04/23/17 05:33 Baso % (Auto) 0.3 % (0.0-1.8) 04/23/17 05:33 Lymph # 0.8 K/mm3 (1.2-5.4) L 04/23/17 05:33 [place]elope # 0.5 K/mm3 (0.0-0.8) 04/23/17 05:33 Eos # 0.2 K/mm3 (0.0-0.4) 04/23/17 05:33 Baso # 0.0 K/mm3 (0.0-0.1) 04/23/17 05:33 Add Manual Diff Complete 03/30/17 03:50 Total Counted 100 03/30/17 03:50 Seg Neutrophils % 84.5 % (40.0-70.0) H 04/23/17 05:33 Seg Neuts % (Manual) 65.0 % (40.0-70.0) 03/30/17 03:50 Band Neutrophils % 17.0 % 03/30/17 03:50 Lymphocytes % (Manual) 7.0 % (13.4-35.0) L 03/30/17 03:50 Reactive Lymphs % (Man) 0 % 03/30/17 03:50 Monocytes % (Manual) 7.0 % (0.0-7.3) 03/30/17 03:50 Eosinophils % (Manual) 0 % (0.0-4.3) 03/30/17 03:50 Basophils % (Manual) 0 % (0.0-1.8) 03/30/17 03:50 Metamyelocytes % 4.0 % 03/30/17 03:50 Myelocytes % 0 % 03/30/17 03:50 Promyelocytes % 0 % 03/30/17 03:50 Blast Cells % 0 % 03/30/17 03:50 Nucleated RBC % Not Reportable 03/30/17 03:50 Seg Neutrophils # 8.2 K/mm3 (1.8-7.7) H 04/23/17 05:33 Seg Neutrophils # Man 12.7 K/mm3 (1.8-7.7) H 03/30/17 03:50 Band Neutrophils # 3.3 K/mm3 03/30/17 03:50 Lymphocytes # (Manual) 1.4 K/mm3 (1.2-5.4) 03/30/17 03:50 Abs React Lymphs (Man) 0.0 K/mm3 03/30/17 03:50 Monocytes # (Manual) 1.4 K/mm3 (0.0-0.8) H 03/30/17 03:50 Eosinophils # (Manual) 0.0 K/mm3 (0.0-0.4) 03/30/17 03:50 Basophils # (Manual) 0.0 K/mm3 (0.0-0.1) 03/30/17 03:50 Metamyelocytes # 0.8 K/mm3 03/30/17 03:50 Myelocytes # 0.0 K/mm3 03/30/17 03:50 Promyelocytes # 0.0 K/mm3 03/30/17 03:50 Blast Cells # 0.0 K/mm3 03/30/17 03:50 WBC Morphology Not Reportable 03/30/17 03:50 Hypersegmented Neuts Not Reportable 03/30/17 03:50 Hyposegmented Neuts Not Reportable 03/30/17 03:50 Hypogranular Neuts Not Reportable 03/30/17 03:50 Smudge Cells Not Reportable 03/30/17 03:50 Toxic Granulation Not Reportable 03/30/17 03:50 Toxic Vacuolation Not Reportable 03/30/17 03:50 Dohle Bodies Not Reportable 03/30/17 03:50 Pelger-Huet Anomaly Not Reportable 03/30/17 03:50 Sherry Rods Not Reportable 03/30/17 03:50 Platelet Estimate Appears normal 03/30/17 03:50 Clumped Platelets Not Reportable 03/30/17 03:50 Plt Clumps, EDTA Not Reportable 03/30/17 03:50 Large Platelets Not Reportable 03/30/17 03:50 Giant Platelets Not Reportable 03/30/17 03:50 Platelet Satelliting Not Reportable 03/30/17 03:50 Plt Morphology Comment Not Reportable 03/30/17 03:50 RBC Morphology Not Reportable 03/30/17 03:50 Dimorphic RBCs Not Reportable 03/30/17 03:50 Polychromasia Not Reportable 03/30/17 03:50 Hypochromasia Not Reportable 03/30/17 03:50 Poikilocytosis Not Reportable 03/30/17 03:50 Anisocytosis Few 03/30/17 03:50 Microcytosis Not Reportable 03/30/17 03:50 Macrocytosis Not Reportable 03/30/17 03:50 Spherocytes Not Reportable 03/30/17 03:50 Pappenheimer Bodies Not Reportable 03/30/17 03:50 Sickle Cells Not Reportable 03/30/17 03:50 Target Cells Not Reportable 03/30/17 03:50 Tear Drop Cells Not Reportable 03/30/17 03:50 Ovalocytes Not Reportable 03/30/17 03:50 Helmet Cells Not Reportable 03/30/17 03:50 [place] Bodies Not Reportable 03/30/17 03:50 [place] Rings Not Reportable 03/30/17 03:50 Nusrat Cells Not Reportable 03/30/17 03:50 Bite Cells Not Reportable 03/30/17 03:50 Crenated Cell Not Reportable 03/30/17 03:50 Elliptocytes Not Reportable 03/30/17 03:50 Acanthocytes (Spur) Not Reportable 03/30/17 03:50 Rouleaux Not Reportable 03/30/17 03:50 Hemoglobin C Crystals Not Reportable 03/30/17 03:50 Schistocytes Not Reportable 03/30/17 03:50 Malaria parasites Not Reportable 03/30/17 03:50 Jermaine Bodies Not Reportable 03/30/17 03:50 Hem Pathologist Commnt No 03/30/17 03:50 PT 14.9 Sec. (12.2-14.9) 04/10/17 04:16 INR 1.11 (0.87-1.13) 04/10/17 04:16 APTT 27.8 Sec. (24.2-36.6) 04/10/17 04:16 Activated Clotting Time 92 (74-137) 03/29/17 17:47 POC ABG pH 7.516 (7.35-7.45) H 04/19/17 06:50 POC ABG pCO2 28.0 (35-45) L 04/19/17 06:50 POC ABG pO2 81 (80-105) 04/19/17 06:50 POC ABG HCO3 22.7 04/19/17 06:50 POC ABG Total CO2 24 04/19/17 06:50 POC ABG O2 Sat 97 04/19/17 06:50 POC ABG Base Excess 0 04/19/17 06:50 FiO2 30 % 04/19/17 06:50 Sodium 140 mmol/L (137-145) 04/20/17 03:35 Potassium 3.7 mmol/L (3.6-5.0) 04/20/17 03:35 Chloride 103.3 mmol/L (98-107) 04/20/17 03:35 Carbon Dioxide 23 mmol/L (22-30) 04/20/17 03:35 Anion Gap 17 mmol/L 04/20/17 03:35 BUN 20 mg/dL (9-20) 04/20/17 03:35 Creatinine 0.3 mg/dL (0.8-1.5) L 04/20/17 03:35 Estimated GFR > 60 ml/min 04/20/17 03:35 BUN/Creatinine Ratio 67 % 04/20/17 03:35 Glucose 155 mg/dL (75-100) H 04/20/17 03:35 POC Glucose 134 (70-105) H 04/23/17 06:20 Calcium 7.8 mg/dL (8.4-10.2) L 04/20/17 03:35 Phosphorus 3.50 mg/dL (2.5-4.5) 04/13/17 04:45 Magnesium 2.10 mg/dL (1.7-2.3) 04/23/17 05:33 Total Bilirubin 1.00 mg/dL (0.1-1.2) 04/15/17 05:15 Direct Bilirubin 0.4 mg/dL (0-0.2) H 04/15/17 05:15 Indirect Bilirubin 0.6 mg/dL 04/15/17 05:15 AST 149 units/L (5-40) H 04/15/17 05:15 ALT 182 units/L (7-56) H 04/15/17 05:15 Alkaline Phosphatase 143 units/L (35-129) H 04/15/17 05:15 Total Creatine Kinase 1404 units/L (55-170) H 04/12/17 21:36 CK-MB (CK-2) 8.0 ng/mL (0.0-4.0) H 04/12/17 21:36 CK-MB (CK-2) Rel Index 0.5 (0-4) 04/12/17 21:36 Troponin T 0.767 ng/mL (0.00-0.029) H* 04/12/17 21:36 C-Reactive Protein 21.80 mg/dL (0.00-1.30) H 03/30/17 16:04 Total Protein 6.4 g/dL (6.3-8.2) 04/15/17 05:15 Albumin 2.5 g/dL (3.9-5) L 04/15/17 05:15 Albumin/Globulin Ratio 0.6 % 04/15/17 05:15 Triglycerides 151 mg/dL (2-149) H 04/01/17 04:29 Cholesterol 164 mg/dL (50-199) 03/29/17 19:52 LDL Cholesterol Direct 81 mg/dL (50-130) 03/29/17 19:52 HDL Cholesterol 44 mg/dL (40-59) 03/29/17 19:52 Cholesterol/HDL Ratio 3.72 % 03/29/17 19:52 Urine Color [place] (Yellow) 04/21/17 22:00 Urine Turbidity Clear (Clear) 04/21/17 22:00 Urine pH 5.0 (5.0-7.0) 04/21/17 22:00 Ur Specific [place] 1.029 (1.003-1.030) 04/21/17 22:00 Urine Protein 30 mg/dl mg/dL (Negative) 04/21/17 22:00 Urine Glucose (UA) Neg mg/dL (Negative) 04/21/17 22:00 Urine Ketones Neg mg/dL (Negative) 04/21/17 22:00 Urine Blood Mod (Negative) 04/21/17 22:00 Urine Nitrite Neg (Negative) 04/21/17 22:00 Urine Bilirubin Neg (Negative) 04/21/17 22:00 Urine Urobilinogen 4.0 mg/dL (<2.0) 04/21/17 22:00 Ur Leukocyte Esterase Neg (Negative) 04/21/17 22:00 Urine WBC (Auto) 10.0 /HPF (0.0-6.0) H 04/21/17 22:00 Urine RBC (Auto) 44.0 /HPF (0.0-6.0) 04/21/17 22:00 U Epithel Cells (Auto) < 1.0 /HPF (0-13.0) 04/21/17 22:00 Amorphous Crystals 1+ 03/30/17 09:45 Urine Mucus 3+ /HPF 04/21/17 22:00 Urine Opiates Screen Presumptive negative 03/30/17 09:45 Urine Methadone Screen Presumptive negative 03/30/17 09:45 Ur Barbiturates Screen Presumptive negative 03/30/17 09:45 Ur Phencyclidine Scrn Presumptive negative 03/30/17 09:45 Ur Amphetamines Screen Presumptive positive 03/30/17 09:45 U Benzodiazepines Scrn Presumptive positive 03/30/17 09:45 Urine Cocaine Screen Presumptive negative 03/30/17 09:45 U Marijuana (THC) Screen Presumptive negative 03/30/17 09:45 Drugs of Abuse Note Disclamer 03/30/17 09:45 Blood Type O POSITIVE 03/29/17 11:35 Antibody Screen Negative 03/29/17 11:35
--- NOTE | 2017-04-23 14:15 | Progress Note ---
Assessment and Plan - Patient Problems (1) Acute respiratory failure Current Visit: Yes Status: Acute (2) Anoxic brain injury Current Visit: Yes Status: Acute (3) CAD (coronary artery disease) Current Visit: Yes Status: Acute Qualifiers: Coronary Disease-Associated Artery/Lesion type: [place] artery [place] vs. transplanted heart: [place] heart Associated angina: with unstable angina Qualified Code(s): I25.110 - Atherosclerotic heart disease of [place] coronary artery with unstable angina pectoris (4) Cardiac arrest Current Visit: Yes Status: Acute Subjective Principal diagnosis: septic shock Interval history: on vent responsive to pain Objective Vital Signs - 12hr 04/23/17 04/23/17 04/23/17 03:00 04:00 05:00 Temperature 97.6 F Pulse Rate 87 93 H 94 H Respiratory 27 H 28 H 27 H Rate Blood Pressure 87/51 95/60 99/59 O2 Sat by Pulse 97 Oximetry O2 Sat by Pulse Oximetry [ Assessment] 04/23/17 04/23/17 04/23/17 06:00 06:51 07:00 Temperature Pulse Rate 100 H 93 H 92 H Respiratory 31 H 27 H Rate Blood Pressure 99/63 97/50 93/53 O2 Sat by Pulse 96 Oximetry O2 Sat by Pulse Oximetry [ Assessment] 04/23/17 04/23/17 08:00 11:54 Temperature 98.6 F 99.0 F Pulse Rate 86 Respiratory 24 Rate Blood Pressure 90/52 O2 Sat by Pulse 98 Oximetry O2 Sat by Pulse 98 Oximetry [ Assessment] Constitutional: comatose Eyes: non-icteric ENT: oropharynx moist Neck: supple Effort: normal Ascultation: Bilateral: diminished breath sounds ( ), other (coarse BS bilaterally) Percussion: Bilateral: not dull Cardiovascular: regular rate and rhythm (no mrg) Gastrointestinal: normoactive bowel sounds, soft, non-tender, non-distended, other (mild distention) Integumentary: normal, other (multiple tattoos) Extremities: no cyanosis, no edema, pink and warm Neurologic: other (comatose, flaccid extremities, good cough w/ suction) Psychiatric: other (unable to assess) CBC and BMP: 04/23/17 05:33 04/20/17 03:35 ABG, PT/INR, D-dimer: ABG POC ABG pH 7.516 (7.35-7.45) H 04/19/17 06:50 POC ABG pCO2 28.0 (35-45) L 04/19/17 06:50 POC ABG pO2 81 (80-105) 04/19/17 06:50 POC ABG HCO3 22.7 04/19/17 06:50 POC ABG Total CO2 24 04/19/17 06:50 POC ABG O2 Sat 97 04/19/17 06:50 PT/INR, D-dimer PT 14.9 Sec. (12.2-14.9) 04/10/17 04:16 INR 1.11 (0.87-1.13) 04/10/17 04:16 Abnormal lab findings: Abnormal Labs 03/29/17 03/29/17 03/29/17 11:35 11:35 11:40 WBC RBC Hgb Hct MCV 98 H MCH 33 H Plt Count Lymph % (Auto) Eos % (Auto) Baso % (Auto) Lymph # Baso # Seg Neutrophils % Lymphocytes % (Manual) Monocytes % (Manual) 9.0 H Nucleated RBC % 1.0 H Seg Neutrophils # Seg Neutrophils # Man Monocytes # (Manual) 0.9 H PT 15.8 H INR 1.20 H Activated Clotting Time POC ABG pH POC ABG pCO2 POC ABG pO2 Sodium Potassium 2.7 L* Chloride 95.3 L Carbon Dioxide 17 L BUN Creatinine Glucose 435 H POC Glucose Calcium Magnesium Direct Bilirubin AST ALT Alkaline Phosphatase Total Creatine Kinase CK-MB (CK-2) CK-MB (CK-2) Rel Index Troponin T C-Reactive Protein Total Protein 6.1 L Albumin 3.5 L Triglycerides Ur Specific [place] Urine WBC (Auto) 03/29/17 03/29/17 03/29/17 12:34 13:10 13:25 WBC RBC Hgb Hct MCV MCH Plt Count Lymph % (Auto) Eos % (Auto) Baso % (Auto) Lymph # Baso # Seg Neutrophils % Lymphocytes % (Manual) Monocytes % (Manual) Nucleated RBC % Seg Neutrophils # Seg Neutrophils # Man Monocytes # (Manual) PT INR Activated Clotting Time 142 H 169 H 175 H POC ABG pH POC ABG pCO2 POC ABG pO2 Sodium Potassium Chloride Carbon Dioxide BUN Creatinine Glucose POC Glucose Calcium Magnesium Direct Bilirubin AST ALT Alkaline Phosphatase Total Creatine Kinase CK-MB (CK-2) CK-MB (CK-2) Rel Index Troponin T C-Reactive Protein Total Protein Albumin Triglycerides Ur Specific [place] Urine WBC (Auto) 03/29/17 03/29/17 03/29/17 14:50 15:18 19:52 WBC RBC Hgb Hct MCV MCH Plt Count Lymph % (Auto) Eos % (Auto) Baso % (Auto) Lymph # Baso # Seg Neutrophils % Lymphocytes % (Manual) Monocytes % (Manual) Nucleated RBC % Seg Neutrophils # Seg Neutrophils # Man Monocytes # (Manual) PT INR Activated Clotting Time 175 H POC ABG pH 7.293 L POC ABG pCO2 POC ABG pO2 602 H Sodium Potassium Chloride Carbon Dioxide BUN Creatinine Glucose POC Glucose Calcium Magnesium Direct Bilirubin AST ALT Alkaline Phosphatase Total Creatine Kinase 7263 H CK-MB (CK-2) > 300.0 H CK-MB (CK-2) Rel Index 4.1 H Troponin T 8.080 H* D C-Reactive Protein Total Protein Albumin Triglycerides 195 H Ur Specific [place] Urine WBC (Auto) 03/30/17 03/30/17 03/30/17 03:50 03:50 06:19 WBC 19.5 H RBC Hgb Hct MCV MCH Plt Count Lymph % (Auto) Eos % (Auto) Baso % (Auto) Lymph # Baso # Seg Neutrophils % Lymphocytes % (Manual) 7.0 L Monocytes % (Manual) Nucleated RBC % Seg Neutrophils # Seg Neutrophils # Man 12.7 H Monocytes # (Manual) 1.4 H PT INR Activated Clotting Time POC ABG pH POC ABG pCO2 28.2 L POC ABG pO2 108 H Sodium Potassium Chloride 108.9 H Carbon Dioxide 15 L BUN 25 H Creatinine Glucose 158 H POC Glucose Calcium 8.1 L Magnesium Direct Bilirubin AST ALT Alkaline Phosphatase Total Creatine Kinase 7963 H CK-MB (CK-2) > 300.0 H CK-MB (CK-2) Rel Index Troponin T 6.850 H* C-Reactive Protein Total Protein Albumin Triglycerides Ur Specific [place] Urine WBC (Auto) 03/30/17 03/30/17 03/31/17 09:45 16:04 02:19 WBC RBC Hgb Hct MCV MCH Plt Count Lymph % (Auto) Eos % (Auto) Baso % (Auto) Lymph # Baso # Seg Neutrophils % Lymphocytes % (Manual) Monocytes % (Manual) Nucleated RBC % Seg Neutrophils # Seg Neutrophils # Man Monocytes # (Manual) PT INR Activated Clotting Time POC ABG pH POC ABG pCO2 POC ABG pO2 Sodium Potassium Chloride Carbon Dioxide BUN Creatinine Glucose POC Glucose 137 H Calcium Magnesium Direct Bilirubin AST ALT Alkaline Phosphatase Total Creatine Kinase CK-MB (CK-2) CK-MB (CK-2) Rel Index Troponin T C-Reactive Protein 21.80 H Total Protein Albumin Triglycerides Ur Specific [place] 1.031 H Urine WBC (Auto) 03/31/17 03/31/17 03/31/17 03:57 06:54 09:22 WBC RBC Hgb Hct MCV MCH Plt Count Lymph % (Auto) Eos % (Auto) Baso % (Auto) Lymph # Baso # Seg Neutrophils % Lymphocytes % (Manual) Monocytes % (Manual) Nucleated RBC % Seg Neutrophils # Seg Neutrophils # Man Monocytes # (Manual) PT INR Activated Clotting Time POC ABG pH 7.475 H POC ABG pCO2 25.4 L POC ABG pO2 62 L Sodium Potassium Chloride Carbon Dioxide 19 L BUN 22 H Creatinine 0.6 L Glucose 148 H POC Glucose 143 H Calcium 8.3 L Magnesium Direct Bilirubin AST ALT Alkaline Phosphatase Total Creatine Kinase CK-MB (CK-2) CK-MB (CK-2) Rel Index Troponin T C-Reactive Protein Total Protein Albumin Triglycerides Ur Specific [place] Urine WBC (Auto) 03/31/17 03/31/17 03/31/17 11:40 17:47 23:38 WBC RBC Hgb Hct MCV MCH Plt Count Lymph % (Auto) Eos % (Auto) Baso % (Auto) Lymph # Baso # Seg Neutrophils % Lymphocytes % (Manual) Monocytes % (Manual) Nucleated RBC % Seg Neutrophils # Seg Neutrophils # Man Monocytes # (Manual) PT INR Activated Clotting Time POC ABG pH POC ABG pCO2 POC ABG pO2 Sodium Potassium Chloride Carbon Dioxide BUN Creatinine Glucose POC Glucose 127 H 137 H 148 H Calcium Magnesium Direct Bilirubin AST ALT Alkaline Phosphatase Total Creatine Kinase CK-MB (CK-2) CK-MB (CK-2) Rel Index Troponin T C-Reactive Protein Total Protein Albumin Triglycerides Ur Specific [place] Urine WBC (Auto) 04/01/17 04/01/17 04/01/17 04:29 05:01 11:54 WBC RBC Hgb Hct MCV MCH Plt Count Lymph % (Auto) Eos % (Auto) Baso % (Auto) Lymph # Baso # Seg Neutrophils % Lymphocytes % (Manual) Monocytes % (Manual) Nucleated RBC % Seg Neutrophils # Seg Neutrophils # Man Monocytes # (Manual) PT INR Activated Clotting Time POC ABG pH 7.513 H POC ABG pCO2 22.1 L POC ABG pO2 64 L Sodium Potassium Chloride Carbon Dioxide BUN Creatinine Glucose POC Glucose 121 H Calcium Magnesium Direct Bilirubin AST ALT Alkaline Phosphatase Total Creatine Kinase CK-MB (CK-2) CK-MB (CK-2) Rel Index Troponin T C-Reactive Protein Total Protein Albumin Triglycerides 151 H Ur Specific [place] Urine WBC (Auto) 04/01/17 04/02/17 04/02/17 18:17 00:11 04:52 WBC RBC Hgb Hct MCV MCH Plt Count Lymph % (Auto) Eos % (Auto) Baso % (Auto) Lymph # Baso # Seg Neutrophils % Lymphocytes % (Manual) Monocytes % (Manual) Nucleated RBC % Seg Neutrophils # Seg Neutrophils # Man Monocytes # (Manual) PT INR Activated Clotting Time POC ABG pH 7.524 H POC ABG pCO2 25.5 L POC ABG pO2 66 L Sodium Potassium Chloride Carbon Dioxide BUN Creatinine Glucose POC Glucose 117 H 122 H Calcium Magnesium Direct Bilirubin AST ALT Alkaline Phosphatase Total Creatine Kinase CK-MB (CK-2) CK-MB (CK-2) Rel Index Troponin T C-Reactive Protein Total Protein Albumin Triglycerides Ur Specific [place] Urine WBC (Auto) 04/02/17 04/02/17 04/02/17 05:18 10:41 12:19 WBC RBC Hgb Hct MCV MCH Plt Count Lymph % (Auto) Eos % (Auto) Baso % (Auto) Lymph # Baso # Seg Neutrophils % Lymphocytes % (Manual) Monocytes % (Manual) Nucleated RBC % Seg Neutrophils # Seg Neutrophils # Man Monocytes # (Manual) PT INR Activated Clotting Time POC ABG pH 7.534 H POC ABG pCO2 27.4 L POC ABG pO2 Sodium Potassium Chloride Carbon Dioxide BUN Creatinine Glucose POC Glucose 132 H 129 H Calcium Magnesium Direct Bilirubin AST ALT Alkaline Phosphatase Total Creatine Kinase CK-MB (CK-2) CK-MB (CK-2) Rel Index Troponin T C-Reactive Protein Total Protein Albumin Triglycerides Ur Specific [place] Urine WBC (Auto) 04/02/17 04/03/17 04/03/17 18:05 00:08 05:09 WBC RBC Hgb Hct MCV MCH Plt Count Lymph % (Auto) Eos % (Auto) Baso % (Auto) Lymph # Baso # Seg Neutrophils % Lymphocytes % (Manual) Monocytes % (Manual) Nucleated RBC % Seg Neutrophils # Seg Neutrophils # Man Monocytes # (Manual) PT INR Activated Clotting Time POC ABG pH 7.455 H POC ABG pCO2 33.2 L POC ABG pO2 120 H Sodium Potassium Chloride Carbon Dioxide BUN Creatinine Glucose POC Glucose 136 H 128 H Calcium Magnesium Direct Bilirubin AST ALT Alkaline Phosphatase Total Creatine Kinase CK-MB (CK-2) CK-MB (CK-2) Rel Index Troponin T C-Reactive Protein Total Protein Albumin Triglycerides Ur Specific [place] Urine WBC (Auto) 04/03/17 04/03/17 04/03/17 06:32 11:54 12:16 WBC 11.9 H RBC Hgb Hct MCV MCH Plt Count 125 L Lymph % (Auto) 4.8 L Eos % (Auto) Baso % (Auto) Lymph # 0.6 L Baso # Seg Neutrophils % 86.7 H Lymphocytes % (Manual) Monocytes % (Manual) Nucleated RBC % Seg Neutrophils # 10.3 H Seg Neutrophils # Man Monocytes # (Manual) PT INR Activated Clotting Time POC ABG pH POC ABG pCO2 POC ABG pO2 Sodium Potassium Chloride Carbon Dioxide BUN Creatinine Glucose POC Glucose 138 H 143 H Calcium Magnesium Direct Bilirubin AST ALT Alkaline Phosphatase Total Creatine Kinase CK-MB (CK-2) CK-MB (CK-2) Rel Index Troponin T C-Reactive Protein Total Protein Albumin Triglycerides Ur Specific [place] Urine WBC (Auto) 04/03/17 04/03/17 04/04/17 17:33 23:59 04:34 WBC RBC Hgb Hct MCV MCH Plt Count Lymph % (Auto) Eos % (Auto) Baso % (Auto) Lymph # Baso # Seg Neutrophils % Lymphocytes % (Manual) Monocytes % (Manual) Nucleated RBC % Seg Neutrophils # Seg Neutrophils # Man Monocytes # (Manual) PT INR Activated Clotting Time POC ABG pH 7.457 H POC ABG pCO2 29.8 L POC ABG pO2 76 L Sodium Potassium Chloride Carbon Dioxide BUN Creatinine Glucose POC Glucose 130 H 155 H Calcium Magnesium Direct Bilirubin AST ALT Alkaline Phosphatase Total Creatine Kinase CK-MB (CK-2) CK-MB (CK-2) Rel Index Troponin T C-Reactive Protein Total Protein Albumin Triglycerides Ur Specific [place] Urine WBC (Auto) 04/04/17 04/04/17 04/04/17 05:27 12:22 18:18 WBC RBC Hgb Hct MCV MCH Plt Count Lymph % (Auto) Eos % (Auto) Baso % (Auto) Lymph # Baso # Seg Neutrophils % Lymphocytes % (Manual) Monocytes % (Manual) Nucleated RBC % Seg Neutrophils # Seg Neutrophils # Man Monocytes # (Manual) PT INR Activated Clotting Time POC ABG pH POC ABG pCO2 POC ABG pO2 Sodium Potassium Chloride Carbon Dioxide BUN Creatinine Glucose POC Glucose 164 H 146 H 130 H Calcium Magnesium Direct Bilirubin AST ALT Alkaline Phosphatase Total Creatine Kinase CK-MB (CK-2) CK-MB (CK-2) Rel Index Troponin T C-Reactive Protein Total Protein Albumin Triglycerides Ur Specific [place] Urine WBC (Auto) 04/05/17 04/05/17 04/05/17 04:43 05:28 11:36 WBC RBC Hgb Hct MCV MCH Plt Count Lymph % (Auto) Eos % (Auto) Baso % (Auto) Lymph # Baso # Seg Neutrophils % Lymphocytes % (Manual) Monocytes % (Manual) Nucleated RBC % Seg Neutrophils # Seg Neutrophils # Man Monocytes # (Manual) PT INR Activated Clotting Time POC ABG pH 7.479 H POC ABG pCO2 33.5 L POC ABG pO2 76 L Sodium Potassium Chloride Carbon Dioxide BUN Creatinine Glucose POC Glucose 145 H 136 H Calcium Magnesium Direct Bilirubin AST ALT Alkaline Phosphatase Total Creatine Kinase CK-MB (CK-2) CK-MB (CK-2) Rel Index Troponin T C-Reactive Protein Total Protein Albumin Triglycerides Ur Specific [place] Urine WBC (Auto) 04/05/17 04/06/17 04/06/17 17:58 00:16 05:26 WBC RBC Hgb Hct MCV MCH Plt Count Lymph % (Auto) Eos % (Auto) Baso % (Auto) Lymph # Baso # Seg Neutrophils % Lymphocytes % (Manual) Monocytes % (Manual) Nucleated RBC % Seg Neutrophils # Seg Neutrophils # Man Monocytes # (Manual) PT INR Activated Clotting Time POC ABG pH POC ABG pCO2 POC ABG pO2 Sodium Potassium Chloride Carbon Dioxide BUN Creatinine Glucose POC Glucose 130 H 159 H 146 H Calcium Magnesium Direct Bilirubin AST ALT Alkaline Phosphatase Total Creatine Kinase CK-MB (CK-2) CK-MB (CK-2) Rel Index Troponin T C-Reactive Protein Total Protein Albumin Triglycerides Ur Specific [place] Urine WBC (Auto) 04/06/17 04/06/17 04/07/17 13:11 16:54 11:45 WBC RBC Hgb Hct MCV MCH Plt Count Lymph % (Auto) Eos % (Auto) Baso % (Auto) Lymph # Baso # Seg Neutrophils % Lymphocytes % (Manual) Monocytes % (Manual) Nucleated RBC % Seg Neutrophils # Seg Neutrophils # Man Monocytes # (Manual) PT INR Activated Clotting Time POC ABG pH 7.517 H POC ABG pCO2 32.1 L POC ABG pO2 Sodium Potassium Chloride Carbon Dioxide BUN Creatinine Glucose POC Glucose 132 H 123 H Calcium Magnesium Direct Bilirubin AST ALT Alkaline Phosphatase Total Creatine Kinase CK-MB (CK-2) CK-MB (CK-2) Rel Index Troponin T C-Reactive Protein Total Protein Albumin Triglycerides Ur Specific [place] Urine WBC (Auto) 04/07/17 04/07/17 04/07/17 12:51 17:40 23:55 WBC RBC Hgb Hct MCV MCH Plt Count Lymph % (Auto) Eos % (Auto) Baso % (Auto) Lymph # Baso # Seg Neutrophils % Lymphocytes % (Manual) Monocytes % (Manual) Nucleated RBC % Seg Neutrophils # Seg Neutrophils # Man Monocytes # (Manual) PT INR Activated Clotting Time POC ABG pH POC ABG pCO2 POC ABG pO2 Sodium Potassium Chloride Carbon Dioxide BUN Creatinine Glucose POC Glucose 138 H 154 H 143 H Calcium Magnesium Direct Bilirubin AST ALT Alkaline Phosphatase Total Creatine Kinase CK-MB (CK-2) CK-MB (CK-2) Rel Index Troponin T C-Reactive Protein Total Protein Albumin Triglycerides Ur Specific [place] Urine WBC (Auto) 04/08/17 04/08/17 04/08/17 05:27 11:14 17:44 WBC RBC Hgb Hct MCV MCH Plt Count Lymph % (Auto) Eos % (Auto) Baso % (Auto) Lymph # Baso # Seg Neutrophils % Lymphocytes % (Manual) Monocytes % (Manual) Nucleated RBC % Seg Neutrophils # Seg Neutrophils # Man Monocytes # (Manual) PT INR Activated Clotting Time POC ABG pH POC ABG pCO2 POC ABG pO2 Sodium Potassium Chloride Carbon Dioxide BUN Creatinine Glucose POC Glucose 142 H 153 H 129 H Calcium Magnesium Direct Bilirubin AST ALT Alkaline Phosphatase Total Creatine Kinase CK-MB (CK-2) CK-MB (CK-2) Rel Index Troponin T C-Reactive Protein Total Protein Albumin Triglycerides Ur Specific [place] Urine WBC (Auto) 04/09/17 04/09/17 04/09/17 08:20 11:21 17:37 WBC RBC Hgb Hct MCV MCH Plt Count Lymph % (Auto) Eos % (Auto) Baso % (Auto) Lymph # Baso # Seg Neutrophils % Lymphocytes % (Manual) Monocytes % (Manual) Nucleated RBC % Seg Neutrophils # Seg Neutrophils # Man Monocytes # (Manual) PT INR Activated Clotting Time POC ABG pH POC ABG pCO2 POC ABG pO2 Sodium 147 H Potassium Chloride 108.8 H Carbon Dioxide BUN 39 H Creatinine 0.5 L Glucose 138 H POC Glucose 152 H 109 H Calcium Magnesium Direct Bilirubin AST ALT Alkaline Phosphatase Total Creatine Kinase CK-MB (CK-2) CK-MB (CK-2) Rel Index Troponin T C-Reactive Protein Total Protein Albumin Triglycerides Ur Specific [place] Urine WBC (Auto) 04/10/17 04/10/17 04/10/17 00:13 04:16 04:16 WBC RBC Hgb 11.5 L Hct MCV 96 H MCH Plt Count 103 L Lymph % (Auto) 11.1 L Eos % (Auto) Baso % (Auto) Lymph # Baso # Seg Neutrophils % 81.5 H Lymphocytes % (Manual) Monocytes % (Manual) Nucleated RBC % Seg Neutrophils # 8.8 H Seg Neutrophils # Man Monocytes # (Manual) PT INR Activated Clotting Time POC ABG pH POC ABG pCO2 POC ABG pO2 Sodium 148 H Potassium Chloride 109.0 H Carbon Dioxide BUN 36 H Creatinine 0.5 L Glucose 131 H POC Glucose 127 H Calcium 8.1 L Magnesium 2.40 H Direct Bilirubin AST 206 H ALT 228 H Alkaline Phosphatase 178 H Total Creatine Kinase CK-MB (CK-2) CK-MB (CK-2) Rel Index Troponin T C-Reactive Protein Total Protein Albumin 2.8 L Triglycerides Ur Specific [place] Urine WBC (Auto) 04/10/17 04/10/17 04/10/17 06:01 11:57 18:27 WBC RBC Hgb Hct MCV MCH Plt Count Lymph % (Auto) Eos % (Auto) Baso % (Auto) Lymph # Baso # Seg Neutrophils % Lymphocytes % (Manual) Monocytes % (Manual) Nucleated RBC % Seg Neutrophils # Seg Neutrophils # Man Monocytes # (Manual) PT INR Activated Clotting Time POC ABG pH POC ABG pCO2 POC ABG pO2 Sodium Potassium Chloride Carbon Dioxide BUN Creatinine Glucose POC Glucose 108 H 154 H 130 H Calcium Magnesium Direct Bilirubin AST ALT Alkaline Phosphatase Total Creatine Kinase CK-MB (CK-2) CK-MB (CK-2) Rel Index Troponin T C-Reactive Protein Total Protein Albumin Triglycerides Ur Specific [place] Urine WBC (Auto) 04/11/17 04/11/17 04/12/17 12:25 17:10 00:22 WBC RBC Hgb Hct MCV MCH Plt Count Lymph % (Auto) Eos % (Auto) Baso % (Auto) Lymph # Baso # Seg Neutrophils % Lymphocytes % (Manual) Monocytes % (Manual) Nucleated RBC % Seg Neutrophils # Seg Neutrophils # Man Monocytes # (Manual) PT INR Activated Clotting Time POC ABG pH POC ABG pCO2 POC ABG pO2 Sodium Potassium Chloride Carbon Dioxide BUN Creatinine Glucose POC Glucose 107 H 129 H 128 H Calcium Magnesium Direct Bilirubin AST ALT Alkaline Phosphatase Total Creatine Kinase CK-MB (CK-2) CK-MB (CK-2) Rel Index Troponin T C-Reactive Protein Total Protein Albumin Triglycerides Ur Specific [place] Urine WBC (Auto) 04/12/17 04/12/17 04/12/17 05:00 11:57 17:47 WBC RBC Hgb Hct MCV MCH Plt Count Lymph % (Auto) Eos % (Auto) Baso % (Auto) Lymph # Baso # Seg Neutrophils % Lymphocytes % (Manual) Monocytes % (Manual) Nucleated RBC % Seg Neutrophils # Seg Neutrophils # Man Monocytes # (Manual) PT INR Activated Clotting Time POC ABG pH POC ABG pCO2 POC ABG pO2 Sodium Potassium Chloride Carbon Dioxide BUN Creatinine Glucose POC Glucose 140 H 142 H Calcium Magnesium Direct Bilirubin AST 158 H ALT 184 H Alkaline Phosphatase 170 H Total Creatine Kinase CK-MB (CK-2) CK-MB (CK-2) Rel Index Troponin T C-Reactive Protein Total Protein Albumin 2.8 L Triglycerides Ur Specific [place] Urine WBC (Auto) 04/12/17 04/12/17 04/13/17 21:36 21:36 01:37 WBC RBC Hgb Hct MCV MCH Plt Count Lymph % (Auto) Eos % (Auto) Baso % (Auto) Lymph # Baso # Seg Neutrophils % Lymphocytes % (Manual) Monocytes % (Manual) Nucleated RBC % Seg Neutrophils # Seg Neutrophils # Man Monocytes # (Manual) PT INR Activated Clotting Time POC ABG pH POC ABG pCO2 POC ABG pO2 Sodium Potassium Chloride Carbon Dioxide BUN Creatinine Glucose POC Glucose 126 H Calcium Magnesium Direct Bilirubin AST ALT Alkaline Phosphatase Total Creatine Kinase 1404 H CK-MB (CK-2) 8.0 H CK-MB (CK-2) Rel Index Troponin T 0.767 H* C-Reactive Protein Total Protein Albumin Triglycerides Ur Specific [place] Urine WBC (Auto) 04/13/17 04/13/17 04/13/17 04:45 04:52 12:17 WBC RBC Hgb Hct MCV MCH Plt Count Lymph % (Auto) Eos % (Auto) Baso % (Auto) Lymph # Baso # Seg Neutrophils % Lymphocytes % (Manual) Monocytes % (Manual) Nucleated RBC % Seg Neutrophils # Seg Neutrophils # Man Monocytes # (Manual) PT INR Activated Clotting Time POC ABG pH POC ABG pCO2 POC ABG pO2 Sodium 148 H Potassium Chloride 112.8 H Carbon Dioxide BUN 33 H Creatinine 0.4 L Glucose 121 H POC Glucose 126 H 149 H Calcium Magnesium Direct Bilirubin AST 160 H ALT 189 H Alkaline Phosphatase 166 H Total Creatine Kinase CK-MB (CK-2) CK-MB (CK-2) Rel Index Troponin T C-Reactive Protein Total Protein Albumin 2.6 L Triglycerides Ur Specific [place] Urine WBC (Auto) 04/13/17 04/14/17 04/14/17 17:45 00:20 00:45 WBC RBC Hgb Hct MCV MCH Plt Count Lymph % (Auto) Eos % (Auto) Baso % (Auto) Lymph # Baso # Seg Neutrophils % Lymphocytes % (Manual) Monocytes % (Manual) Nucleated RBC % Seg Neutrophils # Seg Neutrophils # Man Monocytes # (Manual) PT INR Activated Clotting Time POC ABG pH POC ABG pCO2 POC ABG pO2 Sodium Potassium Chloride Carbon Dioxide BUN Creatinine Glucose POC Glucose 130 H 144 H 144 H Calcium Magnesium Direct Bilirubin AST ALT Alkaline Phosphatase Total Creatine Kinase CK-MB (CK-2) CK-MB (CK-2) Rel Index Troponin T C-Reactive Protein Total Protein Albumin Triglycerides Ur Specific [place] Urine WBC (Auto) 04/14/17 04/14/17 04/14/17 05:40 11:06 11:31 WBC RBC Hgb Hct MCV MCH Plt Count Lymph % (Auto) Eos % (Auto) Baso % (Auto) Lymph # Baso # Seg Neutrophils % Lymphocytes % (Manual) Monocytes % (Manual) Nucleated RBC % Seg Neutrophils # Seg Neutrophils # Man Monocytes # (Manual) PT INR Activated Clotting Time POC ABG pH POC ABG pCO2 POC ABG pO2 Sodium Potassium Chloride Carbon Dioxide BUN Creatinine Glucose POC Glucose 139 H 123 H Calcium Magnesium Direct Bilirubin AST ALT Alkaline Phosphatase Total Creatine Kinase CK-MB (CK-2) CK-MB (CK-2) Rel Index Troponin T C-Reactive Protein Total Protein Albumin Triglycerides Ur Specific [place] 1.033 H Urine WBC (Auto) > 182.0 H 04/14/17 04/14/17 04/15/17 18:00 23:52 05:15 WBC 12.5 H RBC 3.38 L Hgb 10.6 L Hct 32.7 L MCV 97 H MCH Plt Count 107 L Lymph % (Auto) 8.7 L Eos % (Auto) Baso % (Auto) Lymph # 1.1 L Baso # Seg Neutrophils % 86.1 H Lymphocytes % (Manual) Monocytes % (Manual) Nucleated RBC % Seg Neutrophils # 10.7 H Seg Neutrophils # Man Monocytes # (Manual) PT INR Activated Clotting Time POC ABG pH POC ABG pCO2 POC ABG pO2 Sodium Potassium Chloride Carbon Dioxide BUN Creatinine Glucose POC Glucose 133 H 133 H Calcium Magnesium Direct Bilirubin AST ALT Alkaline Phosphatase Total Creatine Kinase CK-MB (CK-2) CK-MB (CK-2) Rel Index Troponin T C-Reactive Protein Total Protein Albumin Triglycerides Ur Specific [place] Urine WBC (Auto) 04/15/17 04/15/17 04/15/17 05:15 05:25 11:50 WBC RBC Hgb Hct MCV MCH Plt Count Lymph % (Auto) Eos % (Auto) Baso % (Auto) Lymph # Baso # Seg Neutrophils % Lymphocytes % (Manual) Monocytes % (Manual) Nucleated RBC % Seg Neutrophils # Seg Neutrophils # Man Monocytes # (Manual) PT INR Activated Clotting Time POC ABG pH POC ABG pCO2 POC ABG pO2 Sodium 149 H Potassium 3.5 L Chloride 114.1 H Carbon Dioxide 21 L BUN 29 H Creatinine 0.4 L Glucose 128 H POC Glucose 133 H 107 H Calcium 8.3 L Magnesium Direct Bilirubin 0.4 H AST 149 H ALT 182 H Alkaline Phosphatase 143 H Total Creatine Kinase CK-MB (CK-2) CK-MB (CK-2) Rel Index Troponin T C-Reactive Protein Total Protein Albumin 2.5 L Triglycerides Ur Specific [place] Urine WBC (Auto) 04/15/17 04/16/17 04/16/17 16:55 00:02 03:17 WBC RBC 3.39 L Hgb 10.5 L Hct 32.4 L MCV 96 H MCH Plt Count 106 L Lymph % (Auto) 6.7 L Eos % (Auto) Baso % (Auto) Lymph # 0.6 L Baso # Seg Neutrophils % 86.8 H Lymphocytes % (Manual) Monocytes % (Manual) Nucleated RBC % Seg Neutrophils # 8.2 H Seg Neutrophils # Man Monocytes # (Manual) PT INR Activated Clotting Time POC ABG pH POC ABG pCO2 POC ABG pO2 Sodium Potassium Chloride Carbon Dioxide BUN Creatinine Glucose POC Glucose 146 H 148 H Calcium Magnesium Direct Bilirubin AST ALT Alkaline Phosphatase Total Creatine Kinase CK-MB (CK-2) CK-MB (CK-2) Rel Index Troponin T C-Reactive Protein Total Protein Albumin Triglycerides Ur Specific [place] Urine WBC (Auto) 04/16/17 04/16/17 04/16/17 03:17 05:19 11:13 WBC RBC Hgb Hct MCV MCH Plt Count Lymph % (Auto) Eos % (Auto) Baso % (Auto) Lymph # Baso # Seg Neutrophils % Lymphocytes % (Manual) Monocytes % (Manual) Nucleated RBC % Seg Neutrophils # Seg Neutrophils # Man Monocytes # (Manual) PT INR Activated Clotting Time POC ABG pH POC ABG pCO2 POC ABG pO2 Sodium 149 H Potassium Chloride 111.1 H Carbon Dioxide 20 L BUN 27 H Creatinine 0.3 L Glucose 156 H POC Glucose 171 H 169 H Calcium 8.3 L Magnesium Direct Bilirubin AST ALT Alkaline Phosphatase Total Creatine Kinase CK-MB (CK-2) CK-MB (CK-2) Rel Index Troponin T C-Reactive Protein Total Protein Albumin Triglycerides Ur Specific [place] Urine WBC (Auto) 04/16/17 04/17/17 04/17/17 17:03 00:00 05:09 WBC RBC Hgb Hct MCV MCH Plt Count Lymph % (Auto) Eos % (Auto) Baso % (Auto) Lymph # Baso # Seg Neutrophils % Lymphocytes % (Manual) Monocytes % (Manual) Nucleated RBC % Seg Neutrophils # Seg Neutrophils # Man Monocytes # (Manual) PT INR Activated Clotting Time POC ABG pH POC ABG pCO2 POC ABG pO2 Sodium Potassium Chloride Carbon Dioxide BUN Creatinine Glucose POC Glucose 151 H 165 H 145 H Calcium Magnesium Direct Bilirubin AST ALT Alkaline Phosphatase Total Creatine Kinase CK-MB (CK-2) CK-MB (CK-2) Rel Index Troponin T C-Reactive Protein Total Protein Albumin Triglycerides Ur Specific [place] Urine WBC (Auto) 04/17/17 04/17/17 04/18/17 11:38 17:47 00:01 WBC RBC Hgb Hct MCV MCH Plt Count Lymph % (Auto) Eos % (Auto) Baso % (Auto) Lymph # Baso # Seg Neutrophils % Lymphocytes % (Manual) Monocytes % (Manual) Nucleated RBC % Seg Neutrophils # Seg Neutrophils # Man Monocytes # (Manual) PT INR Activated Clotting Time POC ABG pH POC ABG pCO2 POC ABG pO2 Sodium Potassium Chloride Carbon Dioxide BUN Creatinine Glucose POC Glucose 170 H 161 H 131 H Calcium Magnesium Direct Bilirubin AST ALT Alkaline Phosphatase Total Creatine Kinase CK-MB (CK-2) CK-MB (CK-2) Rel Index Troponin T C-Reactive Protein Total Protein Albumin Triglycerides Ur Specific [place] Urine WBC (Auto) 04/18/17 04/18/17 04/18/17 03:55 03:55 05:30 WBC RBC 3.05 L Hgb 9.8 L Hct 29.0 L MCV 95 H MCH Plt Count 113 L Lymph % (Auto) Eos % (Auto) 5.3 H Baso % (Auto) Lymph # Baso # Seg Neutrophils % 71.5 H Lymphocytes % (Manual) Monocytes % (Manual) Nucleated RBC % Seg Neutrophils # Seg Neutrophils # Man Monocytes # (Manual) PT INR Activated Clotting Time POC ABG pH 7.460 H POC ABG pCO2 30.8 L POC ABG pO2 129 H Sodium Potassium Chloride Carbon Dioxide 21 L BUN 25 H Creatinine 0.4 L Glucose 123 H POC Glucose Calcium 8.3 L Magnesium Direct Bilirubin AST ALT Alkaline Phosphatase Total Creatine Kinase CK-MB (CK-2) CK-MB (CK-2) Rel Index Troponin T C-Reactive Protein Total Protein Albumin Triglycerides Ur Specific [place] Urine WBC (Auto) 04/18/17 04/18/17 04/19/17 17:10 23:40 04:36 WBC RBC 3.21 L Hgb 10.2 L Hct 30.4 L MCV 95 H MCH Plt Count 131 L Lymph % (Auto) 12.1 L Eos % (Auto) 4.7 H Baso % (Auto) 2.4 H Lymph # 0.9 L Baso # 0.2 H Seg Neutrophils % 75.0 H Lymphocytes % (Manual) Monocytes % (Manual) Nucleated RBC % Seg Neutrophils # Seg Neutrophils # Man Monocytes # (Manual) PT INR Activated Clotting Time POC ABG pH POC ABG pCO2 POC ABG pO2 Sodium Potassium Chloride Carbon Dioxide BUN Creatinine Glucose POC Glucose 135 H 157 H Calcium Magnesium Direct Bilirubin AST ALT Alkaline Phosphatase Total Creatine Kinase CK-MB (CK-2) CK-MB (CK-2) Rel Index Troponin T C-Reactive Protein Total Protein Albumin Triglycerides Ur Specific [place] Urine WBC (Auto) 04/19/17 04/19/17 04/19/17 04:36 05:12 06:50 WBC RBC Hgb Hct MCV MCH Plt Count Lymph % (Auto) Eos % (Auto) Baso % (Auto) Lymph # Baso # Seg Neutrophils % Lymphocytes % (Manual) Monocytes % (Manual) Nucleated RBC % Seg Neutrophils # Seg Neutrophils # Man Monocytes # (Manual) PT INR Activated Clotting Time POC ABG pH 7.516 H POC ABG pCO2 28.0 L POC ABG pO2 Sodium Potassium Chloride Carbon Dioxide 21 L BUN 23 H Creatinine 0.2 L Glucose 137 H POC Glucose 131 H Calcium 7.9 L Magnesium Direct Bilirubin AST ALT Alkaline Phosphatase Total Creatine Kinase CK-MB (CK-2) CK-MB (CK-2) Rel Index Troponin T C-Reactive Protein Total Protein Albumin Triglycerides Ur Specific [place] Urine WBC (Auto) 04/19/17 04/19/17 04/20/17 12:36 17:42 00:12 WBC RBC Hgb Hct MCV MCH Plt Count Lymph % (Auto) Eos % (Auto) Baso % (Auto) Lymph # Baso # Seg Neutrophils % Lymphocytes % (Manual) Monocytes % (Manual) Nucleated RBC % Seg Neutrophils # Seg Neutrophils # Man Monocytes # (Manual) PT INR Activated Clotting Time POC ABG pH POC ABG pCO2 POC ABG pO2 Sodium Potassium Chloride Carbon Dioxide BUN Creatinine Glucose POC Glucose 128 H 140 H 132 H Calcium Magnesium Direct Bilirubin AST ALT Alkaline Phosphatase Total Creatine Kinase CK-MB (CK-2) CK-MB (CK-2) Rel Index Troponin T C-Reactive Protein Total Protein Albumin Triglycerides Ur Specific [place] Urine WBC (Auto) 04/20/17 04/20/17 04/20/17 03:35 03:35 05:10 WBC RBC 3.34 L Hgb 10.4 L Hct 31.6 L MCV 95 H MCH Plt Count Lymph % (Auto) 12.9 L Eos % (Auto) Baso % (Auto) Lymph # Baso # Seg Neutrophils % 77.3 H Lymphocytes % (Manual) Monocytes % (Manual) Nucleated RBC % Seg Neutrophils # Seg Neutrophils # Man Monocytes # (Manual) PT INR Activated Clotting Time POC ABG pH POC ABG pCO2 POC ABG pO2 Sodium Potassium Chloride Carbon Dioxide BUN Creatinine 0.3 L Glucose 155 H POC Glucose 135 H Calcium 7.8 L Magnesium Direct Bilirubin AST ALT Alkaline Phosphatase Total Creatine Kinase CK-MB (CK-2) CK-MB (CK-2) Rel Index Troponin T C-Reactive Protein Total Protein Albumin Triglycerides Ur Specific [place] Urine WBC (Auto) 04/20/17 04/20/17 04/21/17 12:49 18:21 00:05 WBC RBC Hgb Hct MCV MCH Plt Count Lymph % (Auto) Eos % (Auto) Baso % (Auto) Lymph # Baso # Seg Neutrophils % Lymphocytes % (Manual) Monocytes % (Manual) Nucleated RBC % Seg Neutrophils # Seg Neutrophils # Man Monocytes # (Manual) PT INR Activated Clotting Time POC ABG pH POC ABG pCO2 POC ABG pO2 Sodium Potassium Chloride Carbon Dioxide BUN Creatinine Glucose POC Glucose 155 H 165 H 141 H Calcium Magnesium Direct Bilirubin AST ALT Alkaline Phosphatase Total Creatine Kinase CK-MB (CK-2) CK-MB (CK-2) Rel Index Troponin T C-Reactive Protein Total Protein Albumin Triglycerides Ur Specific [place] Urine WBC (Auto) 04/21/17 04/21/17 04/21/17 06:00 12:11 17:04 WBC RBC Hgb Hct MCV MCH Plt Count Lymph % (Auto) Eos % (Auto) Baso % (Auto) Lymph # Baso # Seg Neutrophils % Lymphocytes % (Manual) Monocytes % (Manual) Nucleated RBC % Seg Neutrophils # Seg Neutrophils # Man Monocytes # (Manual) PT INR Activated Clotting Time POC ABG pH POC ABG pCO2 POC ABG pO2 Sodium Potassium Chloride Carbon Dioxide BUN Creatinine Glucose POC Glucose 152 H 165 H 156 H Calcium Magnesium Direct Bilirubin AST ALT Alkaline Phosphatase Total Creatine Kinase CK-MB (CK-2) CK-MB (CK-2) Rel Index Troponin T C-Reactive Protein Total Protein Albumin Triglycerides Ur Specific [place] Urine WBC (Auto) 04/21/17 04/21/17 04/22/17 22:00 23:59 05:49 WBC RBC Hgb Hct MCV MCH Plt Count Lymph % (Auto) Eos % (Auto) Baso % (Auto) Lymph # Baso # Seg Neutrophils % Lymphocytes % (Manual) Monocytes % (Manual) Nucleated RBC % Seg Neutrophils # Seg Neutrophils # Man Monocytes # (Manual) PT INR Activated Clotting Time POC ABG pH POC ABG pCO2 POC ABG pO2 Sodium Potassium Chloride Carbon Dioxide BUN Creatinine Glucose POC Glucose 166 H 173 H Calcium Magnesium Direct Bilirubin AST ALT Alkaline Phosphatase Total Creatine Kinase CK-MB (CK-2) CK-MB (CK-2) Rel Index Troponin T C-Reactive Protein Total Protein Albumin Triglycerides Ur Specific [place] Urine WBC (Auto) 10.0 H 04/22/17 04/22/17 04/23/17 11:11 18:04 00:37 WBC RBC Hgb Hct MCV MCH Plt Count Lymph % (Auto) Eos % (Auto) Baso % (Auto) Lymph # Baso # Seg Neutrophils % Lymphocytes % (Manual) Monocytes % (Manual) Nucleated RBC % Seg Neutrophils # Seg Neutrophils # Man Monocytes # (Manual) PT INR Activated Clotting Time POC ABG pH POC ABG pCO2 POC ABG pO2 Sodium Potassium Chloride Carbon Dioxide BUN Creatinine Glucose POC Glucose 172 H 140 H 135 H Calcium Magnesium Direct Bilirubin AST ALT Alkaline Phosphatase Total Creatine Kinase CK-MB (CK-2) CK-MB (CK-2) Rel Index Troponin T C-Reactive Protein Total Protein Albumin Triglycerides Ur Specific [place] Urine WBC (Auto) 04/23/17 04/23/17 05:33 06:20 WBC RBC 3.19 L Hgb 9.9 L Hct 30.0 L MCV MCH Plt Count Lymph % (Auto) 8.0 L Eos % (Auto) Baso % (Auto) Lymph # 0.8 L Baso # Seg Neutrophils % 84.5 H Lymphocytes % (Manual) Monocytes % (Manual) Nucleated RBC % Seg Neutrophils # 8.2 H Seg Neutrophils # Man Monocytes # (Manual) PT INR Activated Clotting Time POC ABG pH POC ABG pCO2 POC ABG pO2 Sodium Potassium Chloride Carbon Dioxide BUN Creatinine Glucose POC Glucose 134 H Calcium Magnesium Direct Bilirubin AST ALT Alkaline Phosphatase Total Creatine Kinase CK-MB (CK-2) CK-MB (CK-2) Rel Index Troponin T C-Reactive Protein Total Protein Albumin Triglycerides Ur Specific [place] Urine WBC (Auto)
[2017-04-23] MEDS: ZESTRIL PO SCH (16:09)
[2017-04-23] MEDS: TRANSDERM-SCOP TD SCH (16:13)
--- NOTE | 2017-04-23 22:36 | Progress Note ---
Assessment and Plan - Patient Problems (1) Fever Current Visit: Yes Status: Acute (2) Anoxic brain injury Current Visit: Yes Status: Acute (3) CAD (coronary artery disease) Current Visit: Yes Status: Acute Qualifiers: Coronary Disease-Associated Artery/Lesion type: [place] artery [place] vs. transplanted heart: [place] heart Associated angina: with unstable angina Qualified Code(s): I25.110 - Atherosclerotic heart disease of [place] coronary artery with unstable angina pectoris (4) Cardiac arrest Current Visit: Yes Status: Acute Subjective Date of service: 04/23/17 Principal diagnosis: septic shock Interval history: NONVERBAL Objective Vital Signs Temp Pulse Resp BP Pulse Ox Pulse Ox 04/23/17 20:53 91 H 98 04/23/17 19:00 89 22 95/59 98 04/23/17 18:01 91 H 26 H 98 04/23/17 17:00 97 H 27 H 105/67 98 04/23/17 16:00 99.4 F 96 H 30 H 96/62 92 98 04/23/17 15:00 92 H 26 H 99/60 04/23/17 14:00 90 22 95/60 97 04/23/17 13:00 84 24 95/60 04/23/17 12:00 77 22 86/48 98 04/23/17 11:54 99.0 F 04/23/17 11:00 83 22 90/57 04/23/17 10:00 89 26 H 95/61 99 04/23/17 09:00 89 28 H 95/61 04/23/17 08:00 98.6 F 86 24 90/52 98 98 04/23/17 07:00 92 H 27 H 93/53 04/23/17 06:51 93 H 97/50 04/23/17 06:00 100 H 31 H 99/63 96 04/23/17 05:00 94 H 27 H 99/59 04/23/17 04:00 97.6 F 93 H 28 H 95/60 97 04/23/17 03:00 87 27 H 87/51 04/23/17 02:00 92 H 26 H 90/56 97 04/23/17 01:00 92 H 28 H 92/53 04/23/17 00:00 90 28 H 88/57 93 94 04/22/17 23:19 91 H 28 H 89/47 97 04/22/17 23:00 92 H 29 H 89/47 97 - Physical Examination General: Other (unresponsive on the vent) HEENT: Positive: Other (unresponsive, vent) Neck: Positive: neck supple, trachea midline. Negative: JVD/HJR Cardiac: Positive: Reg Rate and Rhythm, Tachycardia Lungs: Positive: Rhonchi Neuro: Positive: Other (unresponsive post VF arrest) Abdomen: Positive: Soft, Active Bowel Sounds Skin: Positive: Clear Extremities: Absent: edema - Labs and Meds CBC 04/23/17 Range/Units 05:33 WBC 9.7 (4.5-11.0) K/mm3 RBC 3.19 L (3.65-5.03) M/mm3 Hgb 9.9 L (11.8-15.2) gm/dl Hct 30.0 L (35.5-45.6) % Plt Count 181 (140-440) K/mm3 Lymph # 0.8 L (1.2-5.4) K/mm3 [place] # 0.5 (0.0-0.8) K/mm3 Eos # 0.2 (0.0-0.4) K/mm3 Baso # 0.0 (0.0-0.1) K/mm3
[2017-04-24] MEDS: LOPRESSOR PO SCH ×4 (00:43→18:05)
[2017-04-24] MEDS: NOVOLOG SUB-Q SCH ×4 (00:43→18:06)
[2017-04-24] MEDS: MAXIPIME 2 GM in NACL 0.9% 20 ML IV SCH ×3 (06:45→22:57)
--- NOTE | 2017-04-24 08:39 | Progress Note ---
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 1. Continue PSV trials as tolerated. Currently on A/C 2. As per my partner, goal would be T-piece 17/10. Will need trach indefinitely given mental state 3. Continue vent support and management 4. Continue all other cardiac meds 5. Overall prognosis still remains poor given amount of downtime during arrest. CCT 31 minutes. Subjective Date of service: 04/24/17 Principal diagnosis: septic shock Interval history: No acute events overnight. Objective Vital Signs - 12hr 04/23/17 04/23/17 04/23/17 20:53 21:00 22:00 Temperature Pulse Rate 91 H 89 92 H Respiratory 26 H 26 H Rate Blood Pressure 98/61 95/60 O2 Sat by Pulse 98 96 97 Oximetry O2 Sat by Pulse Oximetry [ Assessment] 04/23/17 04/23/17 04/24/17 22:41 23:00 00:00 Temperature Pulse Rate 89 94 H 98 H Respiratory 27 H 30 H 30 H Rate Blood Pressure 99/62 98/64 104/66 O2 Sat by Pulse 100 95 95 Oximetry O2 Sat by Pulse Oximetry [ Assessment] 04/24/17 04/24/17 04/24/17 00:05 00:43 01:00 Temperature Pulse Rate 98 H 99 H Respiratory 29 H Rate Blood Pressure 104/66 104/66 103/62 O2 Sat by Pulse 98 91 Oximetry O2 Sat by Pulse Oximetry [ Assessment] 04/24/17 04/24/17 04/24/17 02:00 02:42 03:00 Temperature Pulse Rate 100 H 102 H 100 H Respiratory 29 H 29 H Rate Blood Pressure 103/64 102/64 O2 Sat by Pulse 94 94 Oximetry O2 Sat by Pulse Oximetry [ Assessment] 04/24/17 04/24/17 04/24/17 03:46 04:00 04:35 Temperature 100.3 F H Pulse Rate 97 H Respiratory 25 H Rate Blood Pressure 96/61 O2 Sat by Pulse 99 Oximetry O2 Sat by Pulse 99 Oximetry [ Assessment] 04/24/17 04/24/17 04/24/17 05:00 06:00 06:37 Temperature Pulse Rate 97 H 95 H Respiratory 28 H 26 H Rate Blood Pressure 100/62 95/54 95/54 O2 Sat by Pulse 100 99 Oximetry O2 Sat by Pulse Oximetry [ Assessment] 04/24/17 04/24/17 07:00 08:00 Temperature 99.2 F Pulse Rate 100 H 96 H Respiratory 23 26 H Rate Blood Pressure 93/57 97/57 O2 Sat by Pulse 100 98 Oximetry O2 Sat by Pulse Oximetry [ Assessment] Constitutional: comatose Eyes: non-icteric ENT: oropharynx moist Neck: supple Effort: normal Ascultation: Bilateral: clear, diminished breath sounds ( ), other (coarse BS bilaterally) Percussion: Bilateral: not dull Cardiovascular: regular rate and rhythm (no mrg) Gastrointestinal: normoactive bowel sounds, soft, non-tender, non-distended, other (mild distention) Integumentary: normal, other (multiple tattoos) Extremities: no cyanosis, no edema, pink and warm Neurologic: other (comatose, flaccid extremities, good cough w/ suction) Psychiatric: other (unable to assess) CBC and BMP: 04/23/17 05:33 04/20/17 03:35 ABG, PT/INR, D-dimer: ABG POC ABG pH 7.516 (7.35-7.45) H 04/19/17 06:50 POC ABG pCO2 28.0 (35-45) L 04/19/17 06:50 POC ABG pO2 81 (80-105) 04/19/17 06:50 POC ABG HCO3 22.7 04/19/17 06:50 POC ABG Total CO2 24 04/19/17 06:50 POC ABG O2 Sat 97 04/19/17 06:50 PT/INR, D-dimer PT 14.9 Sec. (12.2-14.9) 04/10/17 04:16 INR 1.11 (0.87-1.13) 04/10/17 04:16 Abnormal lab findings: Abnormal Labs 03/29/17 03/29/17 03/29/17 11:35 11:35 11:40 WBC RBC Hgb Hct MCV 98 H MCH 33 H Plt Count Lymph % (Auto) Eos % (Auto) Baso % (Auto) Lymph # Baso # Seg Neutrophils % Lymphocytes % (Manual) Monocytes % (Manual) 9.0 H Nucleated RBC % 1.0 H Seg Neutrophils # Seg Neutrophils # Man Monocytes # (Manual) 0.9 H PT 15.8 H INR 1.20 H Activated Clotting Time POC ABG pH POC ABG pCO2 POC ABG pO2 Sodium Potassium 2.7 L* Chloride 95.3 L Carbon Dioxide 17 L BUN Creatinine Glucose 435 H POC Glucose Calcium Magnesium Direct Bilirubin AST ALT Alkaline Phosphatase Total Creatine Kinase CK-MB (CK-2) CK-MB (CK-2) Rel Index Troponin T C-Reactive Protein Total Protein 6.1 L Albumin 3.5 L Triglycerides Ur Specific [place] Urine WBC (Auto) 03/29/17 03/29/17 03/29/17 12:34 13:10 13:25 WBC RBC Hgb Hct MCV MCH Plt Count Lymph % (Auto) Eos % (Auto) Baso % (Auto) Lymph # Baso # Seg Neutrophils % Lymphocytes % (Manual) Monocytes % (Manual) Nucleated RBC % Seg Neutrophils # Seg Neutrophils # Man Monocytes # (Manual) PT INR Activated Clotting Time 142 H 169 H 175 H POC ABG pH POC ABG pCO2 POC ABG pO2 Sodium Potassium Chloride Carbon Dioxide BUN Creatinine Glucose POC Glucose Calcium Magnesium Direct Bilirubin AST ALT Alkaline Phosphatase Total Creatine Kinase CK-MB (CK-2) CK-MB (CK-2) Rel Index Troponin T C-Reactive Protein Total Protein Albumin Triglycerides Ur Specific [place] Urine WBC (Auto) 03/29/17 03/29/17 03/29/17 14:50 15:18 19:52 WBC RBC Hgb Hct MCV MCH Plt Count Lymph % (Auto) Eos % (Auto) Baso % (Auto) Lymph # Baso # Seg Neutrophils % Lymphocytes % (Manual) Monocytes % (Manual) Nucleated RBC % Seg Neutrophils # Seg Neutrophils # Man Monocytes # (Manual) PT INR Activated Clotting Time 175 H POC ABG pH 7.293 L POC ABG pCO2 POC ABG pO2 602 H Sodium Potassium Chloride Carbon Dioxide BUN Creatinine Glucose POC Glucose Calcium Magnesium Direct Bilirubin AST ALT Alkaline Phosphatase Total Creatine Kinase 7263 H CK-MB (CK-2) > 300.0 H CK-MB (CK-2) Rel Index 4.1 H Troponin T 8.080 H* D C-Reactive Protein Total Protein Albumin Triglycerides 195 H Ur Specific [place] Urine WBC (Auto) 03/30/17 03/30/17 03/30/17 03:50 03:50 06:19 WBC 19.5 H RBC Hgb Hct MCV MCH Plt Count Lymph % (Auto) Eos % (Auto) Baso % (Auto) Lymph # Baso # Seg Neutrophils % Lymphocytes % (Manual) 7.0 L Monocytes % (Manual) Nucleated RBC % Seg Neutrophils # Seg Neutrophils # Man 12.7 H Monocytes # (Manual) 1.4 H PT INR Activated Clotting Time POC ABG pH POC ABG pCO2 28.2 L POC ABG pO2 108 H Sodium Potassium Chloride 108.9 H Carbon Dioxide 15 L BUN 25 H Creatinine Glucose 158 H POC Glucose Calcium 8.1 L Magnesium Direct Bilirubin AST ALT Alkaline Phosphatase Total Creatine Kinase 7963 H CK-MB (CK-2) > 300.0 H CK-MB (CK-2) Rel Index Troponin T 6.850 H* C-Reactive Protein Total Protein Albumin Triglycerides Ur Specific [place] Urine WBC (Auto) 03/30/17 03/30/17 03/31/17 09:45 16:04 02:19 WBC RBC Hgb Hct MCV MCH Plt Count Lymph % (Auto) Eos % (Auto) Baso % (Auto) Lymph # Baso # Seg Neutrophils % Lymphocytes % (Manual) Monocytes % (Manual) Nucleated RBC % Seg Neutrophils # Seg Neutrophils # Man Monocytes # (Manual) PT INR Activated Clotting Time POC ABG pH POC ABG pCO2 POC ABG pO2 Sodium Potassium Chloride Carbon Dioxide BUN Creatinine Glucose POC Glucose 137 H Calcium Magnesium Direct Bilirubin AST ALT Alkaline Phosphatase Total Creatine Kinase CK-MB (CK-2) CK-MB (CK-2) Rel Index Troponin T C-Reactive Protein 21.80 H Total Protein Albumin Triglycerides Ur Specific [place] 1.031 H Urine WBC (Auto) 03/31/17 03/31/17 03/31/17 03:57 06:54 09:22 WBC RBC Hgb Hct MCV MCH Plt Count Lymph % (Auto) Eos % (Auto) Baso % (Auto) Lymph # Baso # Seg Neutrophils % Lymphocytes % (Manual) Monocytes % (Manual) Nucleated RBC % Seg Neutrophils # Seg Neutrophils # Man Monocytes # (Manual) PT INR Activated Clotting Time POC ABG pH 7.475 H POC ABG pCO2 25.4 L POC ABG pO2 62 L Sodium Potassium Chloride Carbon Dioxide 19 L BUN 22 H Creatinine 0.6 L Glucose 148 H POC Glucose 143 H Calcium 8.3 L Magnesium Direct Bilirubin AST ALT Alkaline Phosphatase Total Creatine Kinase CK-MB (CK-2) CK-MB (CK-2) Rel Index Troponin T C-Reactive Protein Total Protein Albumin Triglycerides Ur Specific [place] Urine WBC (Auto) 03/31/17 03/31/17 03/31/17 11:40 17:47 23:38 WBC RBC Hgb Hct MCV MCH Plt Count Lymph % (Auto) Eos % (Auto) Baso % (Auto) Lymph # Baso # Seg Neutrophils % Lymphocytes % (Manual) Monocytes % (Manual) Nucleated RBC % Seg Neutrophils # Seg Neutrophils # Man Monocytes # (Manual) PT INR Activated Clotting Time POC ABG pH POC ABG pCO2 POC ABG pO2 Sodium Potassium Chloride Carbon Dioxide BUN Creatinine Glucose POC Glucose 127 H 137 H 148 H Calcium Magnesium Direct Bilirubin AST ALT Alkaline Phosphatase Total Creatine Kinase CK-MB (CK-2) CK-MB (CK-2) Rel Index Troponin T C-Reactive Protein Total Protein Albumin Triglycerides Ur Specific [place] Urine WBC (Auto) 04/01/17 04/01/17 04/01/17 04:29 05:01 11:54 WBC RBC Hgb Hct MCV MCH Plt Count Lymph % (Auto) Eos % (Auto) Baso % (Auto) Lymph # Baso # Seg Neutrophils % Lymphocytes % (Manual) Monocytes % (Manual) Nucleated RBC % Seg Neutrophils # Seg Neutrophils # Man Monocytes # (Manual) PT INR Activated Clotting Time POC ABG pH 7.513 H POC ABG pCO2 22.1 L POC ABG pO2 64 L Sodium Potassium Chloride Carbon Dioxide BUN Creatinine Glucose POC Glucose 121 H Calcium Magnesium Direct Bilirubin AST ALT Alkaline Phosphatase Total Creatine Kinase CK-MB (CK-2) CK-MB (CK-2) Rel Index Troponin T C-Reactive Protein Total Protein Albumin Triglycerides 151 H Ur Specific [place] Urine WBC (Auto) 04/01/17 04/02/17 04/02/17 18:17 00:11 04:52 WBC RBC Hgb Hct MCV MCH Plt Count Lymph % (Auto) Eos % (Auto) Baso % (Auto) Lymph # Baso # Seg Neutrophils % Lymphocytes % (Manual) Monocytes % (Manual) Nucleated RBC % Seg Neutrophils # Seg Neutrophils # Man Monocytes # (Manual) PT INR Activated Clotting Time POC ABG pH 7.524 H POC ABG pCO2 25.5 L POC ABG pO2 66 L Sodium Potassium Chloride Carbon Dioxide BUN Creatinine Glucose POC Glucose 117 H 122 H Calcium Magnesium Direct Bilirubin AST ALT Alkaline Phosphatase Total Creatine Kinase CK-MB (CK-2) CK-MB (CK-2) Rel Index Troponin T C-Reactive Protein Total Protein Albumin Triglycerides Ur Specific [place] Urine WBC (Auto) 04/02/17 04/02/17 04/02/17 05:18 10:41 12:19 WBC RBC Hgb Hct MCV MCH Plt Count Lymph % (Auto) Eos % (Auto) Baso % (Auto) Lymph # Baso # Seg Neutrophils % Lymphocytes % (Manual) Monocytes % (Manual) Nucleated RBC % Seg Neutrophils # Seg Neutrophils # Man Monocytes # (Manual) PT INR Activated Clotting Time POC ABG pH 7.534 H POC ABG pCO2 27.4 L POC ABG pO2 Sodium Potassium Chloride Carbon Dioxide BUN Creatinine Glucose POC Glucose 132 H 129 H Calcium Magnesium Direct Bilirubin AST ALT Alkaline Phosphatase Total Creatine Kinase CK-MB (CK-2) CK-MB (CK-2) Rel Index Troponin T C-Reactive Protein Total Protein Albumin Triglycerides Ur Specific [place] Urine WBC (Auto) 04/02/17 04/03/17 04/03/17 18:05 00:08 05:09 WBC RBC Hgb Hct MCV MCH Plt Count Lymph % (Auto) Eos % (Auto) Baso % (Auto) Lymph # Baso # Seg Neutrophils % Lymphocytes % (Manual) Monocytes % (Manual) Nucleated RBC % Seg Neutrophils # Seg Neutrophils # Man Monocytes # (Manual) PT INR Activated Clotting Time POC ABG pH 7.455 H POC ABG pCO2 33.2 L POC ABG pO2 120 H Sodium Potassium Chloride Carbon Dioxide BUN Creatinine Glucose POC Glucose 136 H 128 H Calcium Magnesium Direct Bilirubin AST ALT Alkaline Phosphatase Total Creatine Kinase CK-MB (CK-2) CK-MB (CK-2) Rel Index Troponin T C-Reactive Protein Total Protein Albumin Triglycerides Ur Specific [place] Urine WBC (Auto) 04/03/17 04/03/17 04/03/17 06:32 11:54 12:16 WBC 11.9 H RBC Hgb Hct MCV MCH Plt Count 125 L Lymph % (Auto) 4.8 L Eos % (Auto) Baso % (Auto) Lymph # 0.6 L Baso # Seg Neutrophils % 86.7 H Lymphocytes % (Manual) Monocytes % (Manual) Nucleated RBC % Seg Neutrophils # 10.3 H Seg Neutrophils # Man Monocytes # (Manual) PT INR Activated Clotting Time POC ABG pH POC ABG pCO2 POC ABG pO2 Sodium Potassium Chloride Carbon Dioxide BUN Creatinine Glucose POC Glucose 138 H 143 H Calcium Magnesium Direct Bilirubin AST ALT Alkaline Phosphatase Total Creatine Kinase CK-MB (CK-2) CK-MB (CK-2) Rel Index Troponin T C-Reactive Protein Total Protein Albumin Triglycerides Ur Specific [place] Urine WBC (Auto) 04/03/17 04/03/17 04/04/17 17:33 23:59 04:34 WBC RBC Hgb Hct MCV MCH Plt Count Lymph % (Auto) Eos % (Auto) Baso % (Auto) Lymph # Baso # Seg Neutrophils % Lymphocytes % (Manual) Monocytes % (Manual) Nucleated RBC % Seg Neutrophils # Seg Neutrophils # Man Monocytes # (Manual) PT INR Activated Clotting Time POC ABG pH 7.457 H POC ABG pCO2 29.8 L POC ABG pO2 76 L Sodium Potassium Chloride Carbon Dioxide BUN Creatinine Glucose POC Glucose 130 H 155 H Calcium Magnesium Direct Bilirubin AST ALT Alkaline Phosphatase Total Creatine Kinase CK-MB (CK-2) CK-MB (CK-2) Rel Index Troponin T C-Reactive Protein Total Protein Albumin Triglycerides Ur Specific [place] Urine WBC (Auto) 04/04/17 04/04/17 04/04/17 05:27 12:22 18:18 WBC RBC Hgb Hct MCV MCH Plt Count Lymph % (Auto) Eos % (Auto) Baso % (Auto) Lymph # Baso # Seg Neutrophils % Lymphocytes % (Manual) Monocytes % (Manual) Nucleated RBC % Seg Neutrophils # Seg Neutrophils # Man Monocytes # (Manual) PT INR Activated Clotting Time POC ABG pH POC ABG pCO2 POC ABG pO2 Sodium Potassium Chloride Carbon Dioxide BUN Creatinine Glucose POC Glucose 164 H 146 H 130 H Calcium Magnesium Direct Bilirubin AST ALT Alkaline Phosphatase Total Creatine Kinase CK-MB (CK-2) CK-MB (CK-2) Rel Index Troponin T C-Reactive Protein Total Protein Albumin Triglycerides Ur Specific [place] Urine WBC (Auto) 04/05/17 04/05/17 04/05/17 04:43 05:28 11:36 WBC RBC Hgb Hct MCV MCH Plt Count Lymph % (Auto) Eos % (Auto) Baso % (Auto) Lymph # Baso # Seg Neutrophils % Lymphocytes % (Manual) Monocytes % (Manual) Nucleated RBC % Seg Neutrophils # Seg Neutrophils # Man Monocytes # (Manual) PT INR Activated Clotting Time POC ABG pH 7.479 H POC ABG pCO2 33.5 L POC ABG pO2 76 L Sodium Potassium Chloride Carbon Dioxide BUN Creatinine Glucose POC Glucose 145 H 136 H Calcium Magnesium Direct Bilirubin AST ALT Alkaline Phosphatase Total Creatine Kinase CK-MB (CK-2) CK-MB (CK-2) Rel Index Troponin T C-Reactive Protein Total Protein Albumin Triglycerides Ur Specific [place] Urine WBC (Auto) 04/05/17 04/06/17 04/06/17 17:58 00:16 05:26 WBC RBC Hgb Hct MCV MCH Plt Count Lymph % (Auto) Eos % (Auto) Baso % (Auto) Lymph # Baso # Seg Neutrophils % Lymphocytes % (Manual) Monocytes % (Manual) Nucleated RBC % Seg Neutrophils # Seg Neutrophils # Man Monocytes # (Manual) PT INR Activated Clotting Time POC ABG pH POC ABG pCO2 POC ABG pO2 Sodium Potassium Chloride Carbon Dioxide BUN Creatinine Glucose POC Glucose 130 H 159 H 146 H Calcium Magnesium Direct Bilirubin AST ALT Alkaline Phosphatase Total Creatine Kinase CK-MB (CK-2) CK-MB (CK-2) Rel Index Troponin T C-Reactive Protein Total Protein Albumin Triglycerides Ur Specific [place] Urine WBC (Auto) 04/06/17 04/06/17 04/07/17 13:11 16:54 11:45 WBC RBC Hgb Hct MCV MCH Plt Count Lymph % (Auto) Eos % (Auto) Baso % (Auto) Lymph # Baso # Seg Neutrophils % Lymphocytes % (Manual) Monocytes % (Manual) Nucleated RBC % Seg Neutrophils # Seg Neutrophils # Man Monocytes # (Manual) PT INR Activated Clotting Time POC ABG pH 7.517 H POC ABG pCO2 32.1 L POC ABG pO2 Sodium Potassium Chloride Carbon Dioxide BUN Creatinine Glucose POC Glucose 132 H 123 H Calcium Magnesium Direct Bilirubin AST ALT Alkaline Phosphatase Total Creatine Kinase CK-MB (CK-2) CK-MB (CK-2) Rel Index Troponin T C-Reactive Protein Total Protein Albumin Triglycerides Ur Specific [place] Urine WBC (Auto) 04/07/17 04/07/17 04/07/17 12:51 17:40 23:55 WBC RBC Hgb Hct MCV MCH Plt Count Lymph % (Auto) Eos % (Auto) Baso % (Auto) Lymph # Baso # Seg Neutrophils % Lymphocytes % (Manual) Monocytes % (Manual) Nucleated RBC % Seg Neutrophils # Seg Neutrophils # Man Monocytes # (Manual) PT INR Activated Clotting Time POC ABG pH POC ABG pCO2 POC ABG pO2 Sodium Potassium Chloride Carbon Dioxide BUN Creatinine Glucose POC Glucose 138 H 154 H 143 H Calcium Magnesium Direct Bilirubin AST ALT Alkaline Phosphatase Total Creatine Kinase CK-MB (CK-2) CK-MB (CK-2) Rel Index Troponin T C-Reactive Protein Total Protein Albumin Triglycerides Ur Specific [place] Urine WBC (Auto) 04/08/17 04/08/17 04/08/17 05:27 11:14 17:44 WBC RBC Hgb Hct MCV MCH Plt Count Lymph % (Auto) Eos % (Auto) Baso % (Auto) Lymph # Baso # Seg Neutrophils % Lymphocytes % (Manual) Monocytes % (Manual) Nucleated RBC % Seg Neutrophils # Seg Neutrophils # Man Monocytes # (Manual) PT INR Activated Clotting Time POC ABG pH POC ABG pCO2 POC ABG pO2 Sodium Potassium Chloride Carbon Dioxide BUN Creatinine Glucose POC Glucose 142 H 153 H 129 H Calcium Magnesium Direct Bilirubin AST ALT Alkaline Phosphatase Total Creatine Kinase CK-MB (CK-2) CK-MB (CK-2) Rel Index Troponin T C-Reactive Protein Total Protein Albumin Triglycerides Ur Specific [place] Urine WBC (Auto) 04/09/17 04/09/17 04/09/17 08:20 11:21 17:37 WBC RBC Hgb Hct MCV MCH Plt Count Lymph % (Auto) Eos % (Auto) Baso % (Auto) Lymph # Baso # Seg Neutrophils % Lymphocytes % (Manual) Monocytes % (Manual) Nucleated RBC % Seg Neutrophils # Seg Neutrophils # Man Monocytes # (Manual) PT INR Activated Clotting Time POC ABG pH POC ABG pCO2 POC ABG pO2 Sodium 147 H Potassium Chloride 108.8 H Carbon Dioxide BUN 39 H Creatinine 0.5 L Glucose 138 H POC Glucose 152 H 109 H Calcium Magnesium Direct Bilirubin AST ALT Alkaline Phosphatase Total Creatine Kinase CK-MB (CK-2) CK-MB (CK-2) Rel Index Troponin T C-Reactive Protein Total Protein Albumin Triglycerides Ur Specific [place] Urine WBC (Auto) 04/10/17 04/10/17 04/10/17 00:13 04:16 04:16 WBC RBC Hgb 11.5 L Hct MCV 96 H MCH Plt Count 103 L Lymph % (Auto) 11.1 L Eos % (Auto) Baso % (Auto) Lymph # Baso # Seg Neutrophils % 81.5 H Lymphocytes % (Manual) Monocytes % (Manual) Nucleated RBC % Seg Neutrophils # 8.8 H Seg Neutrophils # Man Monocytes # (Manual) PT INR Activated Clotting Time POC ABG pH POC ABG pCO2 POC ABG pO2 Sodium 148 H Potassium Chloride 109.0 H Carbon Dioxide BUN 36 H Creatinine 0.5 L Glucose 131 H POC Glucose 127 H Calcium 8.1 L Magnesium 2.40 H Direct Bilirubin AST 206 H ALT 228 H Alkaline Phosphatase 178 H Total Creatine Kinase CK-MB (CK-2) CK-MB (CK-2) Rel Index Troponin T C-Reactive Protein Total Protein Albumin 2.8 L Triglycerides Ur Specific [place] Urine WBC (Auto) 04/10/17 04/10/17 04/10/17 06:01 11:57 18:27 WBC RBC Hgb Hct MCV MCH Plt Count Lymph % (Auto) Eos % (Auto) Baso % (Auto) Lymph # Baso # Seg Neutrophils % Lymphocytes % (Manual) Monocytes % (Manual) Nucleated RBC % Seg Neutrophils # Seg Neutrophils # Man Monocytes # (Manual) PT INR Activated Clotting Time POC ABG pH POC ABG pCO2 POC ABG pO2 Sodium Potassium Chloride Carbon Dioxide BUN Creatinine Glucose POC Glucose 108 H 154 H 130 H Calcium Magnesium Direct Bilirubin AST ALT Alkaline Phosphatase Total Creatine Kinase CK-MB (CK-2) CK-MB (CK-2) Rel Index Troponin T C-Reactive Protein Total Protein Albumin Triglycerides Ur Specific [place] Urine WBC (Auto) 04/11/17 04/11/17 04/12/17 12:25 17:10 00:22 WBC RBC Hgb Hct MCV MCH Plt Count Lymph % (Auto) Eos % (Auto) Baso % (Auto) Lymph # Baso # Seg Neutrophils % Lymphocytes % (Manual) Monocytes % (Manual) Nucleated RBC % Seg Neutrophils # Seg Neutrophils # Man Monocytes # (Manual) PT INR Activated Clotting Time POC ABG pH POC ABG pCO2 POC ABG pO2 Sodium Potassium Chloride Carbon Dioxide BUN Creatinine Glucose POC Glucose 107 H 129 H 128 H Calcium Magnesium Direct Bilirubin AST ALT Alkaline Phosphatase Total Creatine Kinase CK-MB (CK-2) CK-MB (CK-2) Rel Index Troponin T C-Reactive Protein Total Protein Albumin Triglycerides Ur Specific [place] Urine WBC (Auto) 04/12/17 04/12/17 04/12/17 05:00 11:57 17:47 WBC RBC Hgb Hct MCV MCH Plt Count Lymph % (Auto) Eos % (Auto) Baso % (Auto) Lymph # Baso # Seg Neutrophils % Lymphocytes % (Manual) Monocytes % (Manual) Nucleated RBC % Seg Neutrophils # Seg Neutrophils # Man Monocytes # (Manual) PT INR Activated Clotting Time POC ABG pH POC ABG pCO2 POC ABG pO2 Sodium Potassium Chloride Carbon Dioxide BUN Creatinine Glucose POC Glucose 140 H 142 H Calcium Magnesium Direct Bilirubin AST 158 H ALT 184 H Alkaline Phosphatase 170 H Total Creatine Kinase CK-MB (CK-2) CK-MB (CK-2) Rel Index Troponin T C-Reactive Protein Total Protein Albumin 2.8 L Triglycerides Ur Specific [place] Urine WBC (Auto) 04/12/17 04/12/17 04/13/17 21:36 21:36 01:37 WBC RBC Hgb Hct MCV MCH Plt Count Lymph % (Auto) Eos % (Auto) Baso % (Auto) Lymph # Baso # Seg Neutrophils % Lymphocytes % (Manual) Monocytes % (Manual) Nucleated RBC % Seg Neutrophils # Seg Neutrophils # Man Monocytes # (Manual) PT INR Activated Clotting Time POC ABG pH POC ABG pCO2 POC ABG pO2 Sodium Potassium Chloride Carbon Dioxide BUN Creatinine Glucose POC Glucose 126 H Calcium Magnesium Direct Bilirubin AST ALT Alkaline Phosphatase Total Creatine Kinase 1404 H CK-MB (CK-2) 8.0 H CK-MB (CK-2) Rel Index Troponin T 0.767 H* C-Reactive Protein Total Protein Albumin Triglycerides Ur Specific [place] Urine WBC (Auto) 04/13/17 04/13/17 04/13/17 04:45 04:52 12:17 WBC RBC Hgb Hct MCV MCH Plt Count Lymph % (Auto) Eos % (Auto) Baso % (Auto) Lymph # Baso # Seg Neutrophils % Lymphocytes % (Manual) Monocytes % (Manual) Nucleated RBC % Seg Neutrophils # Seg Neutrophils # Man Monocytes # (Manual) PT INR Activated Clotting Time POC ABG pH POC ABG pCO2 POC ABG pO2 Sodium 148 H Potassium Chloride 112.8 H Carbon Dioxide BUN 33 H Creatinine 0.4 L Glucose 121 H POC Glucose 126 H 149 H Calcium Magnesium Direct Bilirubin AST 160 H ALT 189 H Alkaline Phosphatase 166 H Total Creatine Kinase CK-MB (CK-2) CK-MB (CK-2) Rel Index Troponin T C-Reactive Protein Total Protein Albumin 2.6 L Triglycerides Ur Specific [place] Urine WBC (Auto) 04/13/17 04/14/17 04/14/17 17:45 00:20 00:45 WBC RBC Hgb Hct MCV MCH Plt Count Lymph % (Auto) Eos % (Auto) Baso % (Auto) Lymph # Baso # Seg Neutrophils % Lymphocytes % (Manual) Monocytes % (Manual) Nucleated RBC % Seg Neutrophils # Seg Neutrophils # Man Monocytes # (Manual) PT INR Activated Clotting Time POC ABG pH POC ABG pCO2 POC ABG pO2 Sodium Potassium Chloride Carbon Dioxide BUN Creatinine Glucose POC Glucose 130 H 144 H 144 H Calcium Magnesium Direct Bilirubin AST ALT Alkaline Phosphatase Total Creatine Kinase CK-MB (CK-2) CK-MB (CK-2) Rel Index Troponin T C-Reactive Protein Total Protein Albumin Triglycerides Ur Specific [place] Urine WBC (Auto) 04/14/17 04/14/17 04/14/17 05:40 11:06 11:31 WBC RBC Hgb Hct MCV MCH Plt Count Lymph % (Auto) Eos % (Auto) Baso % (Auto) Lymph # Baso # Seg Neutrophils % Lymphocytes % (Manual) Monocytes % (Manual) Nucleated RBC % Seg Neutrophils # Seg Neutrophils # Man Monocytes # (Manual) PT INR Activated Clotting Time POC ABG pH POC ABG pCO2 POC ABG pO2 Sodium Potassium Chloride Carbon Dioxide BUN Creatinine Glucose POC Glucose 139 H 123 H Calcium Magnesium Direct Bilirubin AST ALT Alkaline Phosphatase Total Creatine Kinase CK-MB (CK-2) CK-MB (CK-2) Rel Index Troponin T C-Reactive Protein Total Protein Albumin Triglycerides Ur Specific [place] 1.033 H Urine WBC (Auto) > 182.0 H 04/14/17 04/14/17 04/15/17 18:00 23:52 05:15 WBC 12.5 H RBC 3.38 L Hgb 10.6 L Hct 32.7 L MCV 97 H MCH Plt Count 107 L Lymph % (Auto) 8.7 L Eos % (Auto) Baso % (Auto) Lymph # 1.1 L Baso # Seg Neutrophils % 86.1 H Lymphocytes % (Manual) Monocytes % (Manual) Nucleated RBC % Seg Neutrophils # 10.7 H Seg Neutrophils # Man Monocytes # (Manual) PT INR Activated Clotting Time POC ABG pH POC ABG pCO2 POC ABG pO2 Sodium Potassium Chloride Carbon Dioxide BUN Creatinine Glucose POC Glucose 133 H 133 H Calcium Magnesium Direct Bilirubin AST ALT Alkaline Phosphatase Total Creatine Kinase CK-MB (CK-2) CK-MB (CK-2) Rel Index Troponin T C-Reactive Protein Total Protein Albumin Triglycerides Ur Specific [place] Urine WBC (Auto) 04/15/17 04/15/17 04/15/17 05:15 05:25 11:50 WBC RBC Hgb Hct MCV MCH Plt Count Lymph % (Auto) Eos % (Auto) Baso % (Auto) Lymph # Baso # Seg Neutrophils % Lymphocytes % (Manual) Monocytes % (Manual) Nucleated RBC % Seg Neutrophils # Seg Neutrophils # Man Monocytes # (Manual) PT INR Activated Clotting Time POC ABG pH POC ABG pCO2 POC ABG pO2 Sodium 149 H Potassium 3.5 L Chloride 114.1 H Carbon Dioxide 21 L BUN 29 H Creatinine 0.4 L Glucose 128 H POC Glucose 133 H 107 H Calcium 8.3 L Magnesium Direct Bilirubin 0.4 H AST 149 H ALT 182 H Alkaline Phosphatase 143 H Total Creatine Kinase CK-MB (CK-2) CK-MB (CK-2) Rel Index Troponin T C-Reactive Protein Total Protein Albumin 2.5 L Triglycerides Ur Specific [place] Urine WBC (Auto) 04/15/17 04/16/17 04/16/17 16:55 00:02 03:17 WBC RBC 3.39 L Hgb 10.5 L Hct 32.4 L MCV 96 H MCH Plt Count 106 L Lymph % (Auto) 6.7 L Eos % (Auto) Baso % (Auto) Lymph # 0.6 L Baso # Seg Neutrophils % 86.8 H Lymphocytes % (Manual) Monocytes % (Manual) Nucleated RBC % Seg Neutrophils # 8.2 H Seg Neutrophils # Man Monocytes # (Manual) PT INR Activated Clotting Time POC ABG pH POC ABG pCO2 POC ABG pO2 Sodium Potassium Chloride Carbon Dioxide BUN Creatinine Glucose POC Glucose 146 H 148 H Calcium Magnesium Direct Bilirubin AST ALT Alkaline Phosphatase Total Creatine Kinase CK-MB (CK-2) CK-MB (CK-2) Rel Index Troponin T C-Reactive Protein Total Protein Albumin Triglycerides Ur Specific [place] Urine WBC (Auto) 04/16/17 04/16/17 04/16/17 03:17 05:19 11:13 WBC RBC Hgb Hct MCV MCH Plt Count Lymph % (Auto) Eos % (Auto) Baso % (Auto) Lymph # Baso # Seg Neutrophils % Lymphocytes % (Manual) Monocytes % (Manual) Nucleated RBC % Seg Neutrophils # Seg Neutrophils # Man Monocytes # (Manual) PT INR Activated Clotting Time POC ABG pH POC ABG pCO2 POC ABG pO2 Sodium 149 H Potassium Chloride 111.1 H Carbon Dioxide 20 L BUN 27 H Creatinine 0.3 L Glucose 156 H POC Glucose 171 H 169 H Calcium 8.3 L Magnesium Direct Bilirubin AST ALT Alkaline Phosphatase Total Creatine Kinase CK-MB (CK-2) CK-MB (CK-2) Rel Index Troponin T C-Reactive Protein Total Protein Albumin Triglycerides Ur Specific [place] Urine WBC (Auto) 04/16/17 04/17/17 04/17/17 17:03 00:00 05:09 WBC RBC Hgb Hct MCV MCH Plt Count Lymph % (Auto) Eos % (Auto) Baso % (Auto) Lymph # Baso # Seg Neutrophils % Lymphocytes % (Manual) Monocytes % (Manual) Nucleated RBC % Seg Neutrophils # Seg Neutrophils # Man Monocytes # (Manual) PT INR Activated Clotting Time POC ABG pH POC ABG pCO2 POC ABG pO2 Sodium Potassium Chloride Carbon Dioxide BUN Creatinine Glucose POC Glucose 151 H 165 H 145 H Calcium Magnesium Direct Bilirubin AST ALT Alkaline Phosphatase Total Creatine Kinase CK-MB (CK-2) CK-MB (CK-2) Rel Index Troponin T C-Reactive Protein Total Protein Albumin Triglycerides Ur Specific [place] Urine WBC (Auto) 04/17/17 04/17/17 04/18/17 11:38 17:47 00:01 WBC RBC Hgb Hct MCV MCH Plt Count Lymph % (Auto) Eos % (Auto) Baso % (Auto) Lymph # Baso # Seg Neutrophils % Lymphocytes % (Manual) Monocytes % (Manual) Nucleated RBC % Seg Neutrophils # Seg Neutrophils # Man Monocytes # (Manual) PT INR Activated Clotting Time POC ABG pH POC ABG pCO2 POC ABG pO2 Sodium Potassium Chloride Carbon Dioxide BUN Creatinine Glucose POC Glucose 170 H 161 H 131 H Calcium Magnesium Direct Bilirubin AST ALT Alkaline Phosphatase Total Creatine Kinase CK-MB (CK-2) CK-MB (CK-2) Rel Index Troponin T C-Reactive Protein Total Protein Albumin Triglycerides Ur Specific [place] Urine WBC (Auto) 04/18/17 04/18/17 04/18/17 03:55 03:55 05:30 WBC RBC 3.05 L Hgb 9.8 L Hct 29.0 L MCV 95 H MCH Plt Count 113 L Lymph % (Auto) Eos % (Auto) 5.3 H Baso % (Auto) Lymph # Baso # Seg Neutrophils % 71.5 H Lymphocytes % (Manual) Monocytes % (Manual) Nucleated RBC % Seg Neutrophils # Seg Neutrophils # Man Monocytes # (Manual) PT INR Activated Clotting Time POC ABG pH 7.460 H POC ABG pCO2 30.8 L POC ABG pO2 129 H Sodium Potassium Chloride Carbon Dioxide 21 L BUN 25 H Creatinine 0.4 L Glucose 123 H POC Glucose Calcium 8.3 L Magnesium Direct Bilirubin AST ALT Alkaline Phosphatase Total Creatine Kinase CK-MB (CK-2) CK-MB (CK-2) Rel Index Troponin T C-Reactive Protein Total Protein Albumin Triglycerides Ur Specific [place] Urine WBC (Auto) 04/18/17 04/18/17 04/19/17 17:10 23:40 04:36 WBC RBC 3.21 L Hgb 10.2 L Hct 30.4 L MCV 95 H MCH Plt Count 131 L Lymph % (Auto) 12.1 L Eos % (Auto) 4.7 H Baso % (Auto) 2.4 H Lymph # 0.9 L Baso # 0.2 H Seg Neutrophils % 75.0 H Lymphocytes % (Manual) Monocytes % (Manual) Nucleated RBC % Seg Neutrophils # Seg Neutrophils # Man Monocytes # (Manual) PT INR Activated Clotting Time POC ABG pH POC ABG pCO2 POC ABG pO2 Sodium Potassium Chloride Carbon Dioxide BUN Creatinine Glucose POC Glucose 135 H 157 H Calcium Magnesium Direct Bilirubin AST ALT Alkaline Phosphatase Total Creatine Kinase CK-MB (CK-2) CK-MB (CK-2) Rel Index Troponin T C-Reactive Protein Total Protein Albumin Triglycerides Ur Specific [place] Urine WBC (Auto) 04/19/17 04/19/17 04/19/17 04:36 05:12 06:50 WBC RBC Hgb Hct MCV MCH Plt Count Lymph % (Auto) Eos % (Auto) Baso % (Auto) Lymph # Baso # Seg Neutrophils % Lymphocytes % (Manual) Monocytes % (Manual) Nucleated RBC % Seg Neutrophils # Seg Neutrophils # Man Monocytes # (Manual) PT INR Activated Clotting Time POC ABG pH 7.516 H POC ABG pCO2 28.0 L POC ABG pO2 Sodium Potassium Chloride Carbon Dioxide 21 L BUN 23 H Creatinine 0.2 L Glucose 137 H POC Glucose 131 H Calcium 7.9 L Magnesium Direct Bilirubin AST ALT Alkaline Phosphatase Total Creatine Kinase CK-MB (CK-2) CK-MB (CK-2) Rel Index Troponin T C-Reactive Protein Total Protein Albumin Triglycerides Ur Specific [place] Urine WBC (Auto) 04/19/17 04/19/17 04/20/17 12:36 17:42 00:12 WBC RBC Hgb Hct MCV MCH Plt Count Lymph % (Auto) Eos % (Auto) Baso % (Auto) Lymph # Baso # Seg Neutrophils % Lymphocytes % (Manual) Monocytes % (Manual) Nucleated RBC % Seg Neutrophils # Seg Neutrophils # Man Monocytes # (Manual) PT INR Activated Clotting Time POC ABG pH POC ABG pCO2 POC ABG pO2 Sodium Potassium Chloride Carbon Dioxide BUN Creatinine Glucose POC Glucose 128 H 140 H 132 H Calcium Magnesium Direct Bilirubin AST ALT Alkaline Phosphatase Total Creatine Kinase CK-MB (CK-2) CK-MB (CK-2) Rel Index Troponin T C-Reactive Protein Total Protein Albumin Triglycerides Ur Specific [place] Urine WBC (Auto) 04/20/17 04/20/17 04/20/17 03:35 03:35 05:10 WBC RBC 3.34 L Hgb 10.4 L Hct 31.6 L MCV 95 H MCH Plt Count Lymph % (Auto) 12.9 L Eos % (Auto) Baso % (Auto) Lymph # Baso # Seg Neutrophils % 77.3 H Lymphocytes % (Manual) Monocytes % (Manual) Nucleated RBC % Seg Neutrophils # Seg Neutrophils # Man Monocytes # (Manual) PT INR Activated Clotting Time POC ABG pH POC ABG pCO2 POC ABG pO2 Sodium Potassium Chloride Carbon Dioxide BUN Creatinine 0.3 L Glucose 155 H POC Glucose 135 H Calcium 7.8 L Magnesium Direct Bilirubin AST ALT Alkaline Phosphatase Total Creatine Kinase CK-MB (CK-2) CK-MB (CK-2) Rel Index Troponin T C-Reactive Protein Total Protein Albumin Triglycerides Ur Specific [place] Urine WBC (Auto) 04/20/17 04/20/17 04/21/17 12:49 18:21 00:05 WBC RBC Hgb Hct MCV MCH Plt Count Lymph % (Auto) Eos % (Auto) Baso % (Auto) Lymph # Baso # Seg Neutrophils % Lymphocytes % (Manual) Monocytes % (Manual) Nucleated RBC % Seg Neutrophils # Seg Neutrophils # Man Monocytes # (Manual) PT INR Activated Clotting Time POC ABG pH POC ABG pCO2 POC ABG pO2 Sodium Potassium Chloride Carbon Dioxide BUN Creatinine Glucose POC Glucose 155 H 165 H 141 H Calcium Magnesium Direct Bilirubin AST ALT Alkaline Phosphatase Total Creatine Kinase CK-MB (CK-2) CK-MB (CK-2) Rel Index Troponin T C-Reactive Protein Total Protein Albumin Triglycerides Ur Specific [place] Urine WBC (Auto) 04/21/17 04/21/17 04/21/17 06:00 12:11 17:04 WBC RBC Hgb Hct MCV MCH Plt Count Lymph % (Auto) Eos % (Auto) Baso % (Auto) Lymph # Baso # Seg Neutrophils % Lymphocytes % (Manual) Monocytes % (Manual) Nucleated RBC % Seg Neutrophils # Seg Neutrophils # Man Monocytes # (Manual) PT INR Activated Clotting Time POC ABG pH POC ABG pCO2 POC ABG pO2 Sodium Potassium Chloride Carbon Dioxide BUN Creatinine Glucose POC Glucose 152 H 165 H 156 H Calcium Magnesium Direct Bilirubin AST ALT Alkaline Phosphatase Total Creatine Kinase CK-MB (CK-2) CK-MB (CK-2) Rel Index Troponin T C-Reactive Protein Total Protein Albumin Triglycerides Ur Specific [place] Urine WBC (Auto) 04/21/17 04/21/17 04/22/17 22:00 23:59 05:49 WBC RBC Hgb Hct MCV MCH Plt Count Lymph % (Auto) Eos % (Auto) Baso % (Auto) Lymph # Baso # Seg Neutrophils % Lymphocytes % (Manual) Monocytes % (Manual) Nucleated RBC % Seg Neutrophils # Seg Neutrophils # Man Monocytes # (Manual) PT INR Activated Clotting Time POC ABG pH POC ABG pCO2 POC ABG pO2 Sodium Potassium Chloride Carbon Dioxide BUN Creatinine Glucose POC Glucose 166 H 173 H Calcium Magnesium Direct Bilirubin AST ALT Alkaline Phosphatase Total Creatine Kinase CK-MB (CK-2) CK-MB (CK-2) Rel Index Troponin T C-Reactive Protein Total Protein Albumin Triglycerides Ur Specific [place] Urine WBC (Auto) 10.0 H 04/22/17 04/22/17 04/23/17 11:11 18:04 00:37 WBC RBC Hgb Hct MCV MCH Plt Count Lymph % (Auto) Eos % (Auto) Baso % (Auto) Lymph # Baso # Seg Neutrophils % Lymphocytes % (Manual) Monocytes % (Manual) Nucleated RBC % Seg Neutrophils # Seg Neutrophils # Man Monocytes # (Manual) PT INR Activated Clotting Time POC ABG pH POC ABG pCO2 POC ABG pO2 Sodium Potassium Chloride Carbon Dioxide BUN Creatinine Glucose POC Glucose 172 H 140 H 135 H Calcium Magnesium Direct Bilirubin AST ALT Alkaline Phosphatase Total Creatine Kinase CK-MB (CK-2) CK-MB (CK-2) Rel Index Troponin T C-Reactive Protein Total Protein Albumin Triglycerides Ur Specific [place] Urine WBC (Auto) 04/23/17 04/23/17 04/23/17 05:33 06:20 11:10 WBC RBC 3.19 L Hgb 9.9 L Hct 30.0 L MCV MCH Plt Count Lymph % (Auto) 8.0 L Eos % (Auto) Baso % (Auto) Lymph # 0.8 L Baso # Seg Neutrophils % 84.5 H Lymphocytes % (Manual) Monocytes % (Manual) Nucleated RBC % Seg Neutrophils # 8.2 H Seg Neutrophils # Man Monocytes # (Manual) PT INR Activated Clotting Time POC ABG pH POC ABG pCO2 POC ABG pO2 Sodium Potassium Chloride Carbon Dioxide BUN Creatinine Glucose POC Glucose 134 H 134 H Calcium Magnesium Direct Bilirubin AST ALT Alkaline Phosphatase Total Creatine Kinase CK-MB (CK-2) CK-MB (CK-2) Rel Index Troponin T C-Reactive Protein Total Protein Albumin Triglycerides Ur Specific [place] Urine WBC (Auto) 04/23/17 04/24/17 04/24/17 17:26 00:53 06:46 WBC RBC Hgb Hct MCV MCH Plt Count Lymph % (Auto) Eos % (Auto) Baso % (Auto) Lymph # Baso # Seg Neutrophils % Lymphocytes % (Manual) Monocytes % (Manual) Nucleated RBC % Seg Neutrophils # Seg Neutrophils # Man Monocytes # (Manual) PT INR Activated Clotting Time POC ABG pH POC ABG pCO2 POC ABG pO2 Sodium Potassium Chloride Carbon Dioxide BUN Creatinine Glucose POC Glucose 164 H 146 H 125 H Calcium Magnesium Direct Bilirubin AST ALT Alkaline Phosphatase Total Creatine Kinase CK-MB (CK-2) CK-MB (CK-2) Rel Index Troponin T C-Reactive Protein Total Protein Albumin Triglycerides Ur Specific [place] Urine WBC (Auto)
--- NOTE | 2017-04-24 09:01 | Progress Note ---
Assessment and Plan Assessment and plan: 46 YO Male with No PMH was admitted through emergency room with Graciela marisol cardiac arrest status post CPR per ACLS protocol, anoxic encephalopathy ,acute respiratory failure vent dependent , had tracheostomy and PEG placement, awaiting LTAC evaluation and placement --Status post cardiac arrest: Continue supportive care --Anoxic brain injury; Poor prognosis, s/p trach and PEG --Acute hypoxic respiratory failure;s/p tracheostomy on vent, unable to wean --Acute anterior STEMI ; status post PCI , stable on cardiac medications per cardiology --Hypertension ; continue current antihypertensives and PRN medications --Febrile illness; blood cultures urine and sputum cultures, continue IV antibiotics, --MRSA pneumonia /aspiration pneumonia , contact isolation, ID following, completed zyvox on 04/10 --Cardiogenic shock; resolved, off pressors --Hypokalemia /hypernatremia, Corrected --Trach and PEGcare ,PEG feeds --DVT prophylaxis; heparin --Full CODE STATUS --DC planning; multiple social issues, possible SNF/LTAC placement Patient has no payer source medicare disability application in process Plan of care discussed with the patient's nurse Consults and recommendations noted Very poor prognosis, vegetative state History Interval history: Patient seen and evaluated medical records reviewed Clinically no change, status post tracheostomy on vent No new events reported by the nursing staff Vital signs reviewed stable Hospitalist Physical - Constitutional Vitals: Temp Pulse Resp BP Pulse Ox 99.2 F 96 H 26 H 97/57 98 04/24/17 08:00 04/24/17 08:00 04/24/17 08:00 04/24/17 08:00 04/24/17 08:00 General appearance: Present: no acute distress, well-nourished, other ( tracheostomy on ventilatory support) - EENT Eyes: Present: PERRL - Neck Neck: Present: supple - Respiratory Respiratory effort: normal Respiratory: bilateral: diminished, rhonchi, negative: rales, wheezing - Cardiovascular Rhythm: regular Heart Sounds: Present: S1 & S2 - Extremities Extremities: no ischemia Extremity abnormal: edema - Abdominal General gastrointestinal: soft, non-tender, non-distended, normal bowel sounds - Integumentary Integumentary: Present: clear, warm - Psychiatric Psychiatric: other (noncommunicative) - Neurologic Neurologic: other (unresponsive) Results - Labs CBC & Chem 7: 04/23/17 05:33 04/20/17 03:35 Labs: Laboratory Last Values WBC 9.7 K/mm3 (4.5-11.0) 04/23/17 05:33 RBC 3.19 M/mm3 (3.65-5.03) L 04/23/17 05:33 Hgb 9.9 gm/dl (11.8-15.2) L 04/23/17 05:33 Hct 30.0 % (35.5-45.6) L 04/23/17 05:33 MCV 94 fl (84-94) 04/23/17 05:33 MCH 31 pg (28-32) 04/23/17 05:33 MCHC 33 % (32-34) 04/23/17 05:33 RDW 14.6 % (13.2-15.2) 04/23/17 05:33 Plt Count 181 K/mm3 (140-440) 04/23/17 05:33 Lymph % (Auto) 8.0 % (13.4-35.0) L 04/23/17 05:33 [place] % (Auto) 5.3 % (0.0-7.3) 04/23/17 05:33 Eos % (Auto) 1.9 % (0.0-4.3) 04/23/17 05:33 Baso % (Auto) 0.3 % (0.0-1.8) 04/23/17 05:33 Lymph # 0.8 K/mm3 (1.2-5.4) L 04/23/17 05:33 [place] # 0.5 K/mm3 (0.0-0.8) 04/23/17 05:33 Eos # 0.2 K/mm3 (0.0-0.4) 04/23/17 05:33 Baso # 0.0 K/mm3 (0.0-0.1) 04/23/17 05:33 Add Manual Diff Complete 03/30/17 03:50 Total Counted 100 03/30/17 03:50 Seg Neutrophils % 84.5 % (40.0-70.0) H 04/23/17 05:33 Seg Neuts % (Manual) 65.0 % (40.0-70.0) 03/30/17 03:50 Band Neutrophils % 17.0 % 03/30/17 03:50 Lymphocytes % (Manual) 7.0 % (13.4-35.0) L 03/30/17 03:50 Reactive Lymphs % (Man) 0 % 03/30/17 03:50 Monocytes % (Manual) 7.0 % (0.0-7.3) 03/30/17 03:50 Eosinophils % (Manual) 0 % (0.0-4.3) 03/30/17 03:50 Basophils % (Manual) 0 % (0.0-1.8) 03/30/17 03:50 Metamyelocytes % 4.0 % 03/30/17 03:50 Myelocytes % 0 % 03/30/17 03:50 Promyelocytes % 0 % 03/30/17 03:50 Blast Cells % 0 % 03/30/17 03:50 Nucleated RBC % Not Reportable 03/30/17 03:50 Seg Neutrophils # 8.2 K/mm3 (1.8-7.7) H 04/23/17 05:33 Seg Neutrophils # Man 12.7 K/mm3 (1.8-7.7) H 03/30/17 03:50 Band Neutrophils # 3.3 K/mm3 03/30/17 03:50 Lymphocytes # (Manual) 1.4 K/mm3 (1.2-5.4) 03/30/17 03:50 Abs React Lymphs (Man) 0.0 K/mm3 03/30/17 03:50 Monocytes # (Manual) 1.4 K/mm3 (0.0-0.8) H 03/30/17 03:50 Eosinophils # (Manual) 0.0 K/mm3 (0.0-0.4) 03/30/17 03:50 Basophils # (Manual) 0.0 K/mm3 (0.0-0.1) 03/30/17 03:50 Metamyelocytes # 0.8 K/mm3 03/30/17 03:50 Myelocytes # 0.0 K/mm3 03/30/17 03:50 Promyelocytes # 0.0 K/mm3 03/30/17 03:50 Blast Cells # 0.0 K/mm3 03/30/17 03:50 WBC Morphology Not Reportable 03/30/17 03:50 Hypersegmented Neuts Not Reportable 03/30/17 03:50 Hyposegmented Neuts Not Reportable 03/30/17 03:50 Hypogranular Neuts Not Reportable 03/30/17 03:50 Smudge Cells Not Reportable 03/30/17 03:50 Toxic Granulation Not Reportable 03/30/17 03:50 Toxic Vacuolation Not Reportable 03/30/17 03:50 Dohle Bodies Not Reportable 03/30/17 03:50 Pelger-Huet Anomaly Not Reportable 03/30/17 03:50 Sherry Rods Not Reportable 03/30/17 03:50 Platelet Estimate Appears normal 03/30/17 03:50 Clumped Platelets Not Reportable 03/30/17 03:50 Plt Clumps, EDTA Not Reportable 03/30/17 03:50 Large Platelets Not Reportable 03/30/17 03:50 Giant Platelets Not Reportable 03/30/17 03:50 Platelet Satelliting Not Reportable 03/30/17 03:50 Plt Morphology Comment Not Reportable 03/30/17 03:50 RBC Morphology Not Reportable 03/30/17 03:50 Dimorphic RBCs Not Reportable 03/30/17 03:50 Polychromasia Not Reportable 03/30/17 03:50 Hypochromasia Not Reportable 03/30/17 03:50 Poikilocytosis Not Reportable 03/30/17 03:50 Anisocytosis Few 03/30/17 03:50 Microcytosis Not Reportable 03/30/17 03:50 Macrocytosis Not Reportable 03/30/17 03:50 Spherocytes Not Reportable 03/30/17 03:50 Pappenheimer Bodies Not Reportable 03/30/17 03:50 Sickle Cells Not Reportable 03/30/17 03:50 Target Cells Not Reportable 03/30/17 03:50 Tear Drop Cells Not Reportable 03/30/17 03:50 Ovalocytes Not Reportable 03/30/17 03:50 Helmet Cells Not Reportable 03/30/17 03:50 Tam[place]o-[place]way Bodies Not Reportable 03/30/17 03:50 [place] Rings Not Reportable 03/30/17 03:50 Nusrat Cells Not Reportable 03/30/17 03:50 Bite Cells Not Reportable 03/30/17 03:50 Crenated Cell Not Reportable 03/30/17 03:50 Elliptocytes Not Reportable 03/30/17 03:50 Acanthocytes (Spur) Not Reportable 03/30/17 03:50 Rouleaux Not Reportable 03/30/17 03:50 Hemoglobin C Crystals Not Reportable 03/30/17 03:50 Schistocytes Not Reportable 03/30/17 03:50 Malaria parasites Not Reportable 03/30/17 03:50 Jermaine Bodies Not Reportable 03/30/17 03:50 Hem Pathologist Commnt No 03/30/17 03:50 PT 14.9 Sec. (12.2-14.9) 04/10/17 04:16 INR 1.11 (0.87-1.13) 04/10/17 04:16 APTT 27.8 Sec. (24.2-36.6) 04/10/17 04:16 Activated Clotting Time 92 (74-137) 03/29/17 17:47 POC ABG pH 7.516 (7.35-7.45) H 04/19/17 06:50 POC ABG pCO2 28.0 (35-45) L 04/19/17 06:50 POC ABG pO2 81 (80-105) 04/19/17 06:50 POC ABG HCO3 22.7 04/19/17 06:50 POC ABG Total CO2 24 04/19/17 06:50 POC ABG O2 Sat 97 04/19/17 06:50 POC ABG Base Excess 0 04/19/17 06:50 FiO2 30 % 04/19/17 06:50 Sodium 140 mmol/L (137-145) 04/20/17 03:35 Potassium 3.7 mmol/L (3.6-5.0) 04/20/17 03:35 Chloride 103.3 mmol/L (98-107) 04/20/17 03:35 Carbon Dioxide 23 mmol/L (22-30) 04/20/17 03:35 Anion Gap 17 mmol/L 04/20/17 03:35 BUN 20 mg/dL (9-20) 04/20/17 03:35 Creatinine 0.3 mg/dL (0.8-1.5) L 04/20/17 03:35 Estimated GFR > 60 ml/min 04/20/17 03:35 BUN/Creatinine Ratio 67 % 04/20/17 03:35 Glucose 155 mg/dL (75-100) H 04/20/17 03:35 POC Glucose 125 (70-105) H 04/24/17 06:46 Calcium 7.8 mg/dL (8.4-10.2) L 04/20/17 03:35 Phosphorus 3.50 mg/dL (2.5-4.5) 04/13/17 04:45 Magnesium 2.10 mg/dL (1.7-2.3) 04/23/17 05:33 Total Bilirubin 1.00 mg/dL (0.1-1.2) 04/15/17 05:15 Direct Bilirubin 0.4 mg/dL (0-0.2) H 04/15/17 05:15 Indirect Bilirubin 0.6 mg/dL 04/15/17 05:15 AST 149 units/L (5-40) H 04/15/17 05:15 ALT 182 units/L (7-56) H 04/15/17 05:15 Alkaline Phosphatase 143 units/L (35-129) H 04/15/17 05:15 Total Creatine Kinase 1404 units/L (55-170) H 04/12/17 21:36 CK-MB (CK-2) 8.0 ng/mL (0.0-4.0) H 04/12/17 21:36 CK-MB (CK-2) Rel Index 0.5 (0-4) 04/12/17 21:36 Troponin T 0.767 ng/mL (0.00-0.029) H* 04/12/17 21:36 C-Reactive Protein 21.80 mg/dL (0.00-1.30) H 03/30/17 16:04 Total Protein 6.4 g/dL (6.3-8.2) 04/15/17 05:15 Albumin 2.5 g/dL (3.9-5) L 04/15/17 05:15 Albumin/Globulin Ratio 0.6 % 04/15/17 05:15 Triglycerides 151 mg/dL (2-149) H 04/01/17 04:29 Cholesterol 164 mg/dL (50-199) 03/29/17 19:52 LDL Cholesterol Direct 81 mg/dL (50-130) 03/29/17 19:52 HDL Cholesterol 44 mg/dL (40-59) 03/29/17 19:52 Cholesterol/HDL Ratio 3.72 % 03/29/17 19:52 Urine Color [place] (Yellow) 04/21/17 22:00 Urine Turbidity Clear (Clear) 04/21/17 22:00 Urine pH 5.0 (5.0-7.0) 04/21/17 22:00 Ur Specific [place] 1.029 (1.003-1.030) 04/21/17 22:00 Urine Protein 30 mg/dl mg/dL (Negative) 04/21/17 22:00 Urine Glucose (UA) Neg mg/dL (Negative) 04/21/17 22:00 Urine Ketones Neg mg/dL (Negative) 04/21/17 22:00 Urine Blood Mod (Negative) 04/21/17 22:00 Urine Nitrite Neg (Negative) 04/21/17 22:00 Urine Bilirubin Neg (Negative) 04/21/17 22:00 Urine Urobilinogen 4.0 mg/dL (<2.0) 04/21/17 22:00 Ur Leukocyte Esterase Neg (Negative) 04/21/17 22:00 Urine WBC (Auto) 10.0 /HPF (0.0-6.0) H 04/21/17 22:00 Urine RBC (Auto) 44.0 /HPF (0.0-6.0) 04/21/17 22:00 U Epithel Cells (Auto) < 1.0 /HPF (0-13.0) 04/21/17 22:00 Amorphous Crystals 1+ 03/30/17 09:45 Urine Mucus 3+ /HPF 04/21/17 22:00 Urine Opiates Screen Presumptive negative 03/30/17 09:45 Urine Methadone Screen Presumptive negative 03/30/17 09:45 Ur Barbiturates Screen Presumptive negative 03/30/17 09:45 Ur Phencyclidine Scrn Presumptive negative 03/30/17 09:45 Ur Amphetamines Screen Presumptive positive 03/30/17 09:45 U Benzodiazepines Scrn Presumptive positive 03/30/17 09:45 Urine Cocaine Screen Presumptive negative 03/30/17 09:45 U Marijuana (THC) Screen Presumptive negative 03/30/17 09:45 Drugs of Abuse Note Disclamer 03/30/17 09:45 Blood Type O POSITIVE 03/29/17 11:35 Antibody Screen Negative 03/29/17 11:35
[2017-04-24] MEDS: ASPIRIN PO SCH (10:18)
[2017-04-24] MEDS: PROTONIX FEEDTUBE SCH (10:18)
[2017-04-24] MEDS: PLAVIX PO SCH (10:18)
[2017-04-24] MEDS: COLACE FEEDTUBE SCH ×2 (10:18→22:56)
[2017-04-24] MEDS: HEPARIN SUB-Q SCH ×2 (10:19→22:57)
[2017-04-24] MEDS: ZESTRIL PO SCH (10:19)
[2017-04-24] MEDS: LASIX PO SCH (10:19)
[2017-04-25] MEDS: NOVOLOG SUB-Q SCH ×4 (00:08→18:00)
[2017-04-25] MEDS: LOPRESSOR PO SCH ×4 (00:08→18:00)
[2017-04-25 06:03] LABS: Alanine Aminotransferase 204 units/L (7-56); Albumin 2.4 g/dL (3.9-5)
[2017-04-25 06:11] LABS: Bilirubin,Direct < 0.2 mg/dL (0-0.2)
[2017-04-25] MEDS: MAXIPIME 2 GM in NACL 0.9% 20 ML IV SCH ×3 (06:28→21:11)
--- NOTE | 2017-04-25 09:12 | Progress Note ---
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 1. Continue PSV trials as tolerated. Currently on A/C, will attempt 24 hour trial in the next 1-2 days. 2. As per my partner, goal would be T-piece 17/10. Will need trach indefinitely given mental state 3. Continue vent support and management 4. Continue all other cardiac meds 5. Overall prognosis still remains poor given amount of downtime during arrest. 6. Restarted statin yesterday and obtained baseline LFT's. Will repeat later this week. CCT 31 minutes. Subjective Date of service: 04/25/17 Principal diagnosis: septic shock Interval history: No acute events overnight. Mental status is unchanged. No family at bedside. Did pressure support until shift change yesterday. Objective Vital Signs - 12hr 04/24/17 04/24/17 04/24/17 21:30 22:00 22:51 Temperature Pulse Rate 98 H 93 H Pulse Rate [ From Monitor] Respiratory 29 H Rate Blood Pressure 99/58 O2 Sat by Pulse Oximetry O2 Sat by Pulse 98 Oximetry [ Assessment] 04/24/17 04/24/17 04/25/17 23:00 23:13 00:00 Temperature 99.9 F H Pulse Rate 100 H 93 H Pulse Rate [ From Monitor] Respiratory 31 H 25 H Rate Blood Pressure 104/60 98/57 O2 Sat by Pulse 96 Oximetry O2 Sat by Pulse Oximetry [ Assessment] 04/25/17 04/25/17 04/25/17 00:04 00:08 00:10 Temperature Pulse Rate 92 H 102 H Pulse Rate [ From Monitor] Respiratory 25 H Rate Blood Pressure 98/57 98/57 101/49 O2 Sat by Pulse 98 100 Oximetry O2 Sat by Pulse Oximetry [ Assessment] 04/25/17 04/25/17 04/25/17 01:00 02:00 03:00 Temperature Pulse Rate 95 H 97 H 95 H Pulse Rate [ From Monitor] Respiratory 26 H 18 24 Rate Blood Pressure 96/58 98/58 96/61 O2 Sat by Pulse 98 98 100 Oximetry O2 Sat by Pulse Oximetry [ Assessment] 04/25/17 04/25/17 04/25/17 03:49 03:56 04:00 Temperature 98.9 F Pulse Rate 89 92 H Pulse Rate [ From Monitor] Respiratory 23 Rate Blood Pressure 113/60 94/60 O2 Sat by Pulse 99 Oximetry O2 Sat by Pulse Oximetry [ Assessment] 04/25/17 04/25/17 04/25/17 05:00 05:09 06:00 Temperature Pulse Rate 90 90 Pulse Rate [ From Monitor] Respiratory 25 H 23 Rate Blood Pressure 97/58 97/58 94/60 O2 Sat by Pulse Oximetry O2 Sat by Pulse Oximetry [ Assessment] 04/25/17 04/25/17 07:00 08:00 Temperature 97.3 F L Pulse Rate 89 86 Pulse Rate [ 86 From Monitor] Respiratory 25 H 23 Rate Blood Pressure 89/55 91/58 O2 Sat by Pulse 99 Oximetry O2 Sat by Pulse Oximetry [ Assessment] Constitutional: comatose Eyes: non-icteric ENT: oropharynx moist Neck: supple Effort: normal Ascultation: Bilateral: clear, diminished breath sounds ( ) Percussion: Bilateral: not dull Cardiovascular: regular rate and rhythm (no mrg) Gastrointestinal: normoactive bowel sounds, soft, non-tender, non-distended, other (mild distention) Integumentary: normal, other (multiple tattoos) Extremities: no cyanosis, no edema, pink and warm Neurologic: other (comatose, flaccid extremities, good cough w/ suction) Psychiatric: other (unable to assess) CBC and BMP: 04/23/17 05:33 04/20/17 03:35 ABG, PT/INR, D-dimer: ABG POC ABG pH 7.516 (7.35-7.45) H 04/19/17 06:50 POC ABG pCO2 28.0 (35-45) L 04/19/17 06:50 POC ABG pO2 81 (80-105) 04/19/17 06:50 POC ABG HCO3 22.7 04/19/17 06:50 POC ABG Total CO2 24 04/19/17 06:50 POC ABG O2 Sat 97 04/19/17 06:50 PT/INR, D-dimer PT 14.9 Sec. (12.2-14.9) 04/10/17 04:16 INR 1.11 (0.87-1.13) 04/10/17 04:16 Abnormal lab findings: Abnormal Labs 03/29/17 03/29/17 03/29/17 11:35 11:35 11:40 WBC RBC Hgb Hct MCV 98 H MCH 33 H Plt Count Lymph % (Auto) Eos % (Auto) Baso % (Auto) Lymph # Baso # Seg Neutrophils % Lymphocytes % (Manual) Monocytes % (Manual) 9.0 H Nucleated RBC % 1.0 H Seg Neutrophils # Seg Neutrophils # Man Monocytes # (Manual) 0.9 H PT 15.8 H INR 1.20 H Activated Clotting Time POC ABG pH POC ABG pCO2 POC ABG pO2 Sodium Potassium 2.7 L* Chloride 95.3 L Carbon Dioxide 17 L BUN Creatinine Glucose 435 H POC Glucose Calcium Magnesium Direct Bilirubin AST ALT Alkaline Phosphatase Total Creatine Kinase CK-MB (CK-2) CK-MB (CK-2) Rel Index Troponin T C-Reactive Protein Total Protein 6.1 L Albumin 3.5 L Triglycerides Ur Specific [place] Urine WBC (Auto) 03/29/17 03/29/17 03/29/17 12:34 13:10 13:25 WBC RBC Hgb Hct MCV MCH Plt Count Lymph % (Auto) Eos % (Auto) Baso % (Auto) Lymph # Baso # Seg Neutrophils % Lymphocytes % (Manual) Monocytes % (Manual) Nucleated RBC % Seg Neutrophils # Seg Neutrophils # Man Monocytes # (Manual) PT INR Activated Clotting Time 142 H 169 H 175 H POC ABG pH POC ABG pCO2 POC ABG pO2 Sodium Potassium Chloride Carbon Dioxide BUN Creatinine Glucose POC Glucose Calcium Magnesium Direct Bilirubin AST ALT Alkaline Phosphatase Total Creatine Kinase CK-MB (CK-2) CK-MB (CK-2) Rel Index Troponin T C-Reactive Protein Total Protein Albumin Triglycerides Ur Specific [place] Urine WBC (Auto) 03/29/17 03/29/17 03/29/17 14:50 15:18 19:52 WBC RBC Hgb Hct MCV MCH Plt Count Lymph % (Auto) Eos % (Auto) Baso % (Auto) Lymph # Baso # Seg Neutrophils % Lymphocytes % (Manual) Monocytes % (Manual) Nucleated RBC % Seg Neutrophils # Seg Neutrophils # Man Monocytes # (Manual) PT INR Activated Clotting Time 175 H POC ABG pH 7.293 L POC ABG pCO2 POC ABG pO2 602 H Sodium Potassium Chloride Carbon Dioxide BUN Creatinine Glucose POC Glucose Calcium Magnesium Direct Bilirubin AST ALT Alkaline Phosphatase Total Creatine Kinase 7263 H CK-MB (CK-2) > 300.0 H CK-MB (CK-2) Rel Index 4.1 H Troponin T 8.080 H* D C-Reactive Protein Total Protein Albumin Triglycerides 195 H Ur Specific [place] Urine WBC (Auto) 03/30/17 03/30/17 03/30/17 03:50 03:50 06:19 WBC 19.5 H RBC Hgb Hct MCV MCH Plt Count Lymph % (Auto) Eos % (Auto) Baso % (Auto) Lymph # Baso # Seg Neutrophils % Lymphocytes % (Manual) 7.0 L Monocytes % (Manual) Nucleated RBC % Seg Neutrophils # Seg Neutrophils # Man 12.7 H Monocytes # (Manual) 1.4 H PT INR Activated Clotting Time POC ABG pH POC ABG pCO2 28.2 L POC ABG pO2 108 H Sodium Potassium Chloride 108.9 H Carbon Dioxide 15 L BUN 25 H Creatinine Glucose 158 H POC Glucose Calcium 8.1 L Magnesium Direct Bilirubin AST ALT Alkaline Phosphatase Total Creatine Kinase 7963 H CK-MB (CK-2) > 300.0 H CK-MB (CK-2) Rel Index Troponin T 6.850 H* C-Reactive Protein Total Protein Albumin Triglycerides Ur Specific [place] Urine WBC (Auto) 03/30/17 03/30/17 03/31/17 09:45 16:04 02:19 WBC RBC Hgb Hct MCV MCH Plt Count Lymph % (Auto) Eos % (Auto) Baso % (Auto) Lymph # Baso # Seg Neutrophils % Lymphocytes % (Manual) Monocytes % (Manual) Nucleated RBC % Seg Neutrophils # Seg Neutrophils # Man Monocytes # (Manual) PT INR Activated Clotting Time POC ABG pH POC ABG pCO2 POC ABG pO2 Sodium Potassium Chloride Carbon Dioxide BUN Creatinine Glucose POC Glucose 137 H Calcium Magnesium Direct Bilirubin AST ALT Alkaline Phosphatase Total Creatine Kinase CK-MB (CK-2) CK-MB (CK-2) Rel Index Troponin T C-Reactive Protein 21.80 H Total Protein Albumin Triglycerides Ur Specific [place] 1.031 H Urine WBC (Auto) 03/31/17 03/31/17 03/31/17 03:57 06:54 09:22 WBC RBC Hgb Hct MCV MCH Plt Count Lymph % (Auto) Eos % (Auto) Baso % (Auto) Lymph # Baso # Seg Neutrophils % Lymphocytes % (Manual) Monocytes % (Manual) Nucleated RBC % Seg Neutrophils # Seg Neutrophils # Man Monocytes # (Manual) PT INR Activated Clotting Time POC ABG pH 7.475 H POC ABG pCO2 25.4 L POC ABG pO2 62 L Sodium Potassium Chloride Carbon Dioxide 19 L BUN 22 H Creatinine 0.6 L Glucose 148 H POC Glucose 143 H Calcium 8.3 L Magnesium Direct Bilirubin AST ALT Alkaline Phosphatase Total Creatine Kinase CK-MB (CK-2) CK-MB (CK-2) Rel Index Troponin T C-Reactive Protein Total Protein Albumin Triglycerides Ur Specific [place] Urine WBC (Auto) 03/31/17 03/31/17 03/31/17 11:40 17:47 23:38 WBC RBC Hgb Hct MCV MCH Plt Count Lymph % (Auto) Eos % (Auto) Baso % (Auto) Lymph # Baso # Seg Neutrophils % Lymphocytes % (Manual) Monocytes % (Manual) Nucleated RBC % Seg Neutrophils # Seg Neutrophils # Man Monocytes # (Manual) PT INR Activated Clotting Time POC ABG pH POC ABG pCO2 POC ABG pO2 Sodium Potassium Chloride Carbon Dioxide BUN Creatinine Glucose POC Glucose 127 H 137 H 148 H Calcium Magnesium Direct Bilirubin AST ALT Alkaline Phosphatase Total Creatine Kinase CK-MB (CK-2) CK-MB (CK-2) Rel Index Troponin T C-Reactive Protein Total Protein Albumin Triglycerides Ur Specific [place] Urine WBC (Auto) 04/01/17 04/01/17 04/01/17 04:29 05:01 11:54 WBC RBC Hgb Hct MCV MCH Plt Count Lymph % (Auto) Eos % (Auto) Baso % (Auto) Lymph # Baso # Seg Neutrophils % Lymphocytes % (Manual) Monocytes % (Manual) Nucleated RBC % Seg Neutrophils # Seg Neutrophils # Man Monocytes # (Manual) PT INR Activated Clotting Time POC ABG pH 7.513 H POC ABG pCO2 22.1 L POC ABG pO2 64 L Sodium Potassium Chloride Carbon Dioxide BUN Creatinine Glucose POC Glucose 121 H Calcium Magnesium Direct Bilirubin AST ALT Alkaline Phosphatase Total Creatine Kinase CK-MB (CK-2) CK-MB (CK-2) Rel Index Troponin T C-Reactive Protein Total Protein Albumin Triglycerides 151 H Ur Specific [place] Urine WBC (Auto) 04/01/17 04/02/17 04/02/17 18:17 00:11 04:52 WBC RBC Hgb Hct MCV MCH Plt Count Lymph % (Auto) Eos % (Auto) Baso % (Auto) Lymph # Baso # Seg Neutrophils % Lymphocytes % (Manual) Monocytes % (Manual) Nucleated RBC % Seg Neutrophils # Seg Neutrophils # Man Monocytes # (Manual) PT INR Activated Clotting Time POC ABG pH 7.524 H POC ABG pCO2 25.5 L POC ABG pO2 66 L Sodium Potassium Chloride Carbon Dioxide BUN Creatinine Glucose POC Glucose 117 H 122 H Calcium Magnesium Direct Bilirubin AST ALT Alkaline Phosphatase Total Creatine Kinase CK-MB (CK-2) CK-MB (CK-2) Rel Index Troponin T C-Reactive Protein Total Protein Albumin Triglycerides Ur Specific [place] Urine WBC (Auto) 04/02/17 04/02/17 04/02/17 05:18 10:41 12:19 WBC RBC Hgb Hct MCV MCH Plt Count Lymph % (Auto) Eos % (Auto) Baso % (Auto) Lymph # Baso # Seg Neutrophils % Lymphocytes % (Manual) Monocytes % (Manual) Nucleated RBC % Seg Neutrophils # Seg Neutrophils # Man Monocytes # (Manual) PT INR Activated Clotting Time POC ABG pH 7.534 H POC ABG pCO2 27.4 L POC ABG pO2 Sodium Potassium Chloride Carbon Dioxide BUN Creatinine Glucose POC Glucose 132 H 129 H Calcium Magnesium Direct Bilirubin AST ALT Alkaline Phosphatase Total Creatine Kinase CK-MB (CK-2) CK-MB (CK-2) Rel Index Troponin T C-Reactive Protein Total Protein Albumin Triglycerides Ur Specific [place] Urine WBC (Auto) 04/02/17 04/03/17 04/03/17 18:05 00:08 05:09 WBC RBC Hgb Hct MCV MCH Plt Count Lymph % (Auto) Eos % (Auto) Baso % (Auto) Lymph # Baso # Seg Neutrophils % Lymphocytes % (Manual) Monocytes % (Manual) Nucleated RBC % Seg Neutrophils # Seg Neutrophils # Man Monocytes # (Manual) PT INR Activated Clotting Time POC ABG pH 7.455 H POC ABG pCO2 33.2 L POC ABG pO2 120 H Sodium Potassium Chloride Carbon Dioxide BUN Creatinine Glucose POC Glucose 136 H 128 H Calcium Magnesium Direct Bilirubin AST ALT Alkaline Phosphatase Total Creatine Kinase CK-MB (CK-2) CK-MB (CK-2) Rel Index Troponin T C-Reactive Protein Total Protein Albumin Triglycerides Ur Specific [place] Urine WBC (Auto) 04/03/17 04/03/17 04/03/17 06:32 11:54 12:16 WBC 11.9 H RBC Hgb Hct MCV MCH Plt Count 125 L Lymph % (Auto) 4.8 L Eos % (Auto) Baso % (Auto) Lymph # 0.6 L Baso # Seg Neutrophils % 86.7 H Lymphocytes % (Manual) Monocytes % (Manual) Nucleated RBC % Seg Neutrophils # 10.3 H Seg Neutrophils # Man Monocytes # (Manual) PT INR Activated Clotting Time POC ABG pH POC ABG pCO2 POC ABG pO2 Sodium Potassium Chloride Carbon Dioxide BUN Creatinine Glucose POC Glucose 138 H 143 H Calcium Magnesium Direct Bilirubin AST ALT Alkaline Phosphatase Total Creatine Kinase CK-MB (CK-2) CK-MB (CK-2) Rel Index Troponin T C-Reactive Protein Total Protein Albumin Triglycerides Ur Specific [place] Urine WBC (Auto) 04/03/17 04/03/17 04/04/17 17:33 23:59 04:34 WBC RBC Hgb Hct MCV MCH Plt Count Lymph % (Auto) Eos % (Auto) Baso % (Auto) Lymph # Baso # Seg Neutrophils % Lymphocytes % (Manual) Monocytes % (Manual) Nucleated RBC % Seg Neutrophils # Seg Neutrophils # Man Monocytes # (Manual) PT INR Activated Clotting Time POC ABG pH 7.457 H POC ABG pCO2 29.8 L POC ABG pO2 76 L Sodium Potassium Chloride Carbon Dioxide BUN Creatinine Glucose POC Glucose 130 H 155 H Calcium Magnesium Direct Bilirubin AST ALT Alkaline Phosphatase Total Creatine Kinase CK-MB (CK-2) CK-MB (CK-2) Rel Index Troponin T C-Reactive Protein Total Protein Albumin Triglycerides Ur Specific [place] Urine WBC (Auto) 04/04/17 04/04/17 04/04/17 05:27 12:22 18:18 WBC RBC Hgb Hct MCV MCH Plt Count Lymph % (Auto) Eos % (Auto) Baso % (Auto) Lymph # Baso # Seg Neutrophils % Lymphocytes % (Manual) Monocytes % (Manual) Nucleated RBC % Seg Neutrophils # Seg Neutrophils # Man Monocytes # (Manual) PT INR Activated Clotting Time POC ABG pH POC ABG pCO2 POC ABG pO2 Sodium Potassium Chloride Carbon Dioxide BUN Creatinine Glucose POC Glucose 164 H 146 H 130 H Calcium Magnesium Direct Bilirubin AST ALT Alkaline Phosphatase Total Creatine Kinase CK-MB (CK-2) CK-MB (CK-2) Rel Index Troponin T C-Reactive Protein Total Protein Albumin Triglycerides Ur Specific [place] Urine WBC (Auto) 04/05/17 04/05/17 04/05/17 04:43 05:28 11:36 WBC RBC Hgb Hct MCV MCH Plt Count Lymph % (Auto) Eos % (Auto) Baso % (Auto) Lymph # Baso # Seg Neutrophils % Lymphocytes % (Manual) Monocytes % (Manual) Nucleated RBC % Seg Neutrophils # Seg Neutrophils # Man Monocytes # (Manual) PT INR Activated Clotting Time POC ABG pH 7.479 H POC ABG pCO2 33.5 L POC ABG pO2 76 L Sodium Potassium Chloride Carbon Dioxide BUN Creatinine Glucose POC Glucose 145 H 136 H Calcium Magnesium Direct Bilirubin AST ALT Alkaline Phosphatase Total Creatine Kinase CK-MB (CK-2) CK-MB (CK-2) Rel Index Troponin T C-Reactive Protein Total Protein Albumin Triglycerides Ur Specific [place] Urine WBC (Auto) 04/05/17 04/06/17 04/06/17 17:58 00:16 05:26 WBC RBC Hgb Hct MCV MCH Plt Count Lymph % (Auto) Eos % (Auto) Baso % (Auto) Lymph # Baso # Seg Neutrophils % Lymphocytes % (Manual) Monocytes % (Manual) Nucleated RBC % Seg Neutrophils # Seg Neutrophils # Man Monocytes # (Manual) PT INR Activated Clotting Time POC ABG pH POC ABG pCO2 POC ABG pO2 Sodium Potassium Chloride Carbon Dioxide BUN Creatinine Glucose POC Glucose 130 H 159 H 146 H Calcium Magnesium Direct Bilirubin AST ALT Alkaline Phosphatase Total Creatine Kinase CK-MB (CK-2) CK-MB (CK-2) Rel Index Troponin T C-Reactive Protein Total Protein Albumin Triglycerides Ur Specific [place] Urine WBC (Auto) 04/06/17 04/06/17 04/07/17 13:11 16:54 11:45 WBC RBC Hgb Hct MCV MCH Plt Count Lymph % (Auto) Eos % (Auto) Baso % (Auto) Lymph # Baso # Seg Neutrophils % Lymphocytes % (Manual) Monocytes % (Manual) Nucleated RBC % Seg Neutrophils # Seg Neutrophils # Man Monocytes # (Manual) PT INR Activated Clotting Time POC ABG pH 7.517 H POC ABG pCO2 32.1 L POC ABG pO2 Sodium Potassium Chloride Carbon Dioxide BUN Creatinine Glucose POC Glucose 132 H 123 H Calcium Magnesium Direct Bilirubin AST ALT Alkaline Phosphatase Total Creatine Kinase CK-MB (CK-2) CK-MB (CK-2) Rel Index Troponin T C-Reactive Protein Total Protein Albumin Triglycerides Ur Specific [place] Urine WBC (Auto) 04/07/17 04/07/17 04/07/17 12:51 17:40 23:55 WBC RBC Hgb Hct MCV MCH Plt Count Lymph % (Auto) Eos % (Auto) Baso % (Auto) Lymph # Baso # Seg Neutrophils % Lymphocytes % (Manual) Monocytes % (Manual) Nucleated RBC % Seg Neutrophils # Seg Neutrophils # Man Monocytes # (Manual) PT INR Activated Clotting Time POC ABG pH POC ABG pCO2 POC ABG pO2 Sodium Potassium Chloride Carbon Dioxide BUN Creatinine Glucose POC Glucose 138 H 154 H 143 H Calcium Magnesium Direct Bilirubin AST ALT Alkaline Phosphatase Total Creatine Kinase CK-MB (CK-2) CK-MB (CK-2) Rel Index Troponin T C-Reactive Protein Total Protein Albumin Triglycerides Ur Specific [place] Urine WBC (Auto) 04/08/17 04/08/17 04/08/17 05:27 11:14 17:44 WBC RBC Hgb Hct MCV MCH Plt Count Lymph % (Auto) Eos % (Auto) Baso % (Auto) Lymph # Baso # Seg Neutrophils % Lymphocytes % (Manual) Monocytes % (Manual) Nucleated RBC % Seg Neutrophils # Seg Neutrophils # Man Monocytes # (Manual) PT INR Activated Clotting Time POC ABG pH POC ABG pCO2 POC ABG pO2 Sodium Potassium Chloride Carbon Dioxide BUN Creatinine Glucose POC Glucose 142 H 153 H 129 H Calcium Magnesium Direct Bilirubin AST ALT Alkaline Phosphatase Total Creatine Kinase CK-MB (CK-2) CK-MB (CK-2) Rel Index Troponin T C-Reactive Protein Total Protein Albumin Triglycerides Ur Specific [place] Urine WBC (Auto) 04/09/17 04/09/17 04/09/17 08:20 11:21 17:37 WBC RBC Hgb Hct MCV MCH Plt Count Lymph % (Auto) Eos % (Auto) Baso % (Auto) Lymph # Baso # Seg Neutrophils % Lymphocytes % (Manual) Monocytes % (Manual) Nucleated RBC % Seg Neutrophils # Seg Neutrophils # Man Monocytes # (Manual) PT INR Activated Clotting Time POC ABG pH POC ABG pCO2 POC ABG pO2 Sodium 147 H Potassium Chloride 108.8 H Carbon Dioxide BUN 39 H Creatinine 0.5 L Glucose 138 H POC Glucose 152 H 109 H Calcium Magnesium Direct Bilirubin AST ALT Alkaline Phosphatase Total Creatine Kinase CK-MB (CK-2) CK-MB (CK-2) Rel Index Troponin T C-Reactive Protein Total Protein Albumin Triglycerides Ur Specific [place] Urine WBC (Auto) 04/10/17 04/10/17 04/10/17 00:13 04:16 04:16 WBC RBC Hgb 11.5 L Hct MCV 96 H MCH Plt Count 103 L Lymph % (Auto) 11.1 L Eos % (Auto) Baso % (Auto) Lymph # Baso # Seg Neutrophils % 81.5 H Lymphocytes % (Manual) Monocytes % (Manual) Nucleated RBC % Seg Neutrophils # 8.8 H Seg Neutrophils # Man Monocytes # (Manual) PT INR Activated Clotting Time POC ABG pH POC ABG pCO2 POC ABG pO2 Sodium 148 H Potassium Chloride 109.0 H Carbon Dioxide BUN 36 H Creatinine 0.5 L Glucose 131 H POC Glucose 127 H Calcium 8.1 L Magnesium 2.40 H Direct Bilirubin AST 206 H ALT 228 H Alkaline Phosphatase 178 H Total Creatine Kinase CK-MB (CK-2) CK-MB (CK-2) Rel Index Troponin T C-Reactive Protein Total Protein Albumin 2.8 L Triglycerides Ur Specific [place] Urine WBC (Auto) 04/10/17 04/10/17 04/10/17 06:01 11:57 18:27 WBC RBC Hgb Hct MCV MCH Plt Count Lymph % (Auto) Eos % (Auto) Baso % (Auto) Lymph # Baso # Seg Neutrophils % Lymphocytes % (Manual) Monocytes % (Manual) Nucleated RBC % Seg Neutrophils # Seg Neutrophils # Man Monocytes # (Manual) PT INR Activated Clotting Time POC ABG pH POC ABG pCO2 POC ABG pO2 Sodium Potassium Chloride Carbon Dioxide BUN Creatinine Glucose POC Glucose 108 H 154 H 130 H Calcium Magnesium Direct Bilirubin AST ALT Alkaline Phosphatase Total Creatine Kinase CK-MB (CK-2) CK-MB (CK-2) Rel Index Troponin T C-Reactive Protein Total Protein Albumin Triglycerides Ur Specific [place] Urine WBC (Auto) 04/11/17 04/11/17 04/12/17 12:25 17:10 00:22 WBC RBC Hgb Hct MCV MCH Plt Count Lymph % (Auto) Eos % (Auto) Baso % (Auto) Lymph # Baso # Seg Neutrophils % Lymphocytes % (Manual) Monocytes % (Manual) Nucleated RBC % Seg Neutrophils # Seg Neutrophils # Man Monocytes # (Manual) PT INR Activated Clotting Time POC ABG pH POC ABG pCO2 POC ABG pO2 Sodium Potassium Chloride Carbon Dioxide BUN Creatinine Glucose POC Glucose 107 H 129 H 128 H Calcium Magnesium Direct Bilirubin AST ALT Alkaline Phosphatase Total Creatine Kinase CK-MB (CK-2) CK-MB (CK-2) Rel Index Troponin T C-Reactive Protein Total Protein Albumin Triglycerides Ur Specific [place] Urine WBC (Auto) 04/12/17 04/12/17 04/12/17 05:00 11:57 17:47 WBC RBC Hgb Hct MCV MCH Plt Count Lymph % (Auto) Eos % (Auto) Baso % (Auto) Lymph # Baso # Seg Neutrophils % Lymphocytes % (Manual) Monocytes % (Manual) Nucleated RBC % Seg Neutrophils # Seg Neutrophils # Man Monocytes # (Manual) PT INR Activated Clotting Time POC ABG pH POC ABG pCO2 POC ABG pO2 Sodium Potassium Chloride Carbon Dioxide BUN Creatinine Glucose POC Glucose 140 H 142 H Calcium Magnesium Direct Bilirubin AST 158 H ALT 184 H Alkaline Phosphatase 170 H Total Creatine Kinase CK-MB (CK-2) CK-MB (CK-2) Rel Index Troponin T C-Reactive Protein Total Protein Albumin 2.8 L Triglycerides Ur Specific [place] Urine WBC (Auto) 04/12/17 04/12/17 04/13/17 21:36 21:36 01:37 WBC RBC Hgb Hct MCV MCH Plt Count Lymph % (Auto) Eos % (Auto) Baso % (Auto) Lymph # Baso # Seg Neutrophils % Lymphocytes % (Manual) Monocytes % (Manual) Nucleated RBC % Seg Neutrophils # Seg Neutrophils # Man Monocytes # (Manual) PT INR Activated Clotting Time POC ABG pH POC ABG pCO2 POC ABG pO2 Sodium Potassium Chloride Carbon Dioxide BUN Creatinine Glucose POC Glucose 126 H Calcium Magnesium Direct Bilirubin AST ALT Alkaline Phosphatase Total Creatine Kinase 1404 H CK-MB (CK-2) 8.0 H CK-MB (CK-2) Rel Index Troponin T 0.767 H* C-Reactive Protein Total Protein Albumin Triglycerides Ur Specific [place] Urine WBC (Auto) 04/13/17 04/13/17 04/13/17 04:45 04:52 12:17 WBC RBC Hgb Hct MCV MCH Plt Count Lymph % (Auto) Eos % (Auto) Baso % (Auto) Lymph # Baso # Seg Neutrophils % Lymphocytes % (Manual) Monocytes % (Manual) Nucleated RBC % Seg Neutrophils # Seg Neutrophils # Man Monocytes # (Manual) PT INR Activated Clotting Time POC ABG pH POC ABG pCO2 POC ABG pO2 Sodium 148 H Potassium Chloride 112.8 H Carbon Dioxide BUN 33 H Creatinine 0.4 L Glucose 121 H POC Glucose 126 H 149 H Calcium Magnesium Direct Bilirubin AST 160 H ALT 189 H Alkaline Phosphatase 166 H Total Creatine Kinase CK-MB (CK-2) CK-MB (CK-2) Rel Index Troponin T C-Reactive Protein Total Protein Albumin 2.6 L Triglycerides Ur Specific [place] Urine WBC (Auto) 04/13/17 04/14/17 04/14/17 17:45 00:20 00:45 WBC RBC Hgb Hct MCV MCH Plt Count Lymph % (Auto) Eos % (Auto) Baso % (Auto) Lymph # Baso # Seg Neutrophils % Lymphocytes % (Manual) Monocytes % (Manual) Nucleated RBC % Seg Neutrophils # Seg Neutrophils # Man Monocytes # (Manual) PT INR Activated Clotting Time POC ABG pH POC ABG pCO2 POC ABG pO2 Sodium Potassium Chloride Carbon Dioxide BUN Creatinine Glucose POC Glucose 130 H 144 H 144 H Calcium Magnesium Direct Bilirubin AST ALT Alkaline Phosphatase Total Creatine Kinase CK-MB (CK-2) CK-MB (CK-2) Rel Index Troponin T C-Reactive Protein Total Protein Albumin Triglycerides Ur Specific [place] Urine WBC (Auto) 04/14/17 04/14/17 04/14/17 05:40 11:06 11:31 WBC RBC Hgb Hct MCV MCH Plt Count Lymph % (Auto) Eos % (Auto) Baso % (Auto) Lymph # Baso # Seg Neutrophils % Lymphocytes % (Manual) Monocytes % (Manual) Nucleated RBC % Seg Neutrophils # Seg Neutrophils # Man Monocytes # (Manual) PT INR Activated Clotting Time POC ABG pH POC ABG pCO2 POC ABG pO2 Sodium Potassium Chloride Carbon Dioxide BUN Creatinine Glucose POC Glucose 139 H 123 H Calcium Magnesium Direct Bilirubin AST ALT Alkaline Phosphatase Total Creatine Kinase CK-MB (CK-2) CK-MB (CK-2) Rel Index Troponin T C-Reactive Protein Total Protein Albumin Triglycerides Ur Specific [place] 1.033 H Urine WBC (Auto) > 182.0 H 04/14/17 04/14/17 04/15/17 18:00 23:52 05:15 WBC 12.5 H RBC 3.38 L Hgb 10.6 L Hct 32.7 L MCV 97 H MCH Plt Count 107 L Lymph % (Auto) 8.7 L Eos % (Auto) Baso % (Auto) Lymph # 1.1 L Baso # Seg Neutrophils % 86.1 H Lymphocytes % (Manual) Monocytes % (Manual) Nucleated RBC % Seg Neutrophils # 10.7 H Seg Neutrophils # Man Monocytes # (Manual) PT INR Activated Clotting Time POC ABG pH POC ABG pCO2 POC ABG pO2 Sodium Potassium Chloride Carbon Dioxide BUN Creatinine Glucose POC Glucose 133 H 133 H Calcium Magnesium Direct Bilirubin AST ALT Alkaline Phosphatase Total Creatine Kinase CK-MB (CK-2) CK-MB (CK-2) Rel Index Troponin T C-Reactive Protein Total Protein Albumin Triglycerides Ur Specific [place] Urine WBC (Auto) 04/15/17 04/15/17 04/15/17 05:15 05:25 11:50 WBC RBC Hgb Hct MCV MCH Plt Count Lymph % (Auto) Eos % (Auto) Baso % (Auto) Lymph # Baso # Seg Neutrophils % Lymphocytes % (Manual) Monocytes % (Manual) Nucleated RBC % Seg Neutrophils # Seg Neutrophils # Man Monocytes # (Manual) PT INR Activated Clotting Time POC ABG pH POC ABG pCO2 POC ABG pO2 Sodium 149 H Potassium 3.5 L Chloride 114.1 H Carbon Dioxide 21 L BUN 29 H Creatinine 0.4 L Glucose 128 H POC Glucose 133 H 107 H Calcium 8.3 L Magnesium Direct Bilirubin 0.4 H AST 149 H ALT 182 H Alkaline Phosphatase 143 H Total Creatine Kinase CK-MB (CK-2) CK-MB (CK-2) Rel Index Troponin T C-Reactive Protein Total Protein Albumin 2.5 L Triglycerides Ur Specific [place] Urine WBC (Auto) 04/15/17 04/16/17 04/16/17 16:55 00:02 03:17 WBC RBC 3.39 L Hgb 10.5 L Hct 32.4 L MCV 96 H MCH Plt Count 106 L Lymph % (Auto) 6.7 L Eos % (Auto) Baso % (Auto) Lymph # 0.6 L Baso # Seg Neutrophils % 86.8 H Lymphocytes % (Manual) Monocytes % (Manual) Nucleated RBC % Seg Neutrophils # 8.2 H Seg Neutrophils # Man Monocytes # (Manual) PT INR Activated Clotting Time POC ABG pH POC ABG pCO2 POC ABG pO2 Sodium Potassium Chloride Carbon Dioxide BUN Creatinine Glucose POC Glucose 146 H 148 H Calcium Magnesium Direct Bilirubin AST ALT Alkaline Phosphatase Total Creatine Kinase CK-MB (CK-2) CK-MB (CK-2) Rel Index Troponin T C-Reactive Protein Total Protein Albumin Triglycerides Ur Specific [place] Urine WBC (Auto) 04/16/17 04/16/17 04/16/17 03:17 05:19 11:13 WBC RBC Hgb Hct MCV MCH Plt Count Lymph % (Auto) Eos % (Auto) Baso % (Auto) Lymph # Baso # Seg Neutrophils % Lymphocytes % (Manual) Monocytes % (Manual) Nucleated RBC % Seg Neutrophils # Seg Neutrophils # Man Monocytes # (Manual) PT INR Activated Clotting Time POC ABG pH POC ABG pCO2 POC ABG pO2 Sodium 149 H Potassium Chloride 111.1 H Carbon Dioxide 20 L BUN 27 H Creatinine 0.3 L Glucose 156 H POC Glucose 171 H 169 H Calcium 8.3 L Magnesium Direct Bilirubin AST ALT Alkaline Phosphatase Total Creatine Kinase CK-MB (CK-2) CK-MB (CK-2) Rel Index Troponin T C-Reactive Protein Total Protein Albumin Triglycerides Ur Specific [place] Urine WBC (Auto) 04/16/17 04/17/17 04/17/17 17:03 00:00 05:09 WBC RBC Hgb Hct MCV MCH Plt Count Lymph % (Auto) Eos % (Auto) Baso % (Auto) Lymph # Baso # Seg Neutrophils % Lymphocytes % (Manual) Monocytes % (Manual) Nucleated RBC % Seg Neutrophils # Seg Neutrophils # Man Monocytes # (Manual) PT INR Activated Clotting Time POC ABG pH POC ABG pCO2 POC ABG pO2 Sodium Potassium Chloride Carbon Dioxide BUN Creatinine Glucose POC Glucose 151 H 165 H 145 H Calcium Magnesium Direct Bilirubin AST ALT Alkaline Phosphatase Total Creatine Kinase CK-MB (CK-2) CK-MB (CK-2) Rel Index Troponin T C-Reactive Protein Total Protein Albumin Triglycerides Ur Specific [place] Urine WBC (Auto) 04/17/17 04/17/17 04/18/17 11:38 17:47 00:01 WBC RBC Hgb Hct MCV MCH Plt Count Lymph % (Auto) Eos % (Auto) Baso % (Auto) Lymph # Baso # Seg Neutrophils % Lymphocytes % (Manual) Monocytes % (Manual) Nucleated RBC % Seg Neutrophils # Seg Neutrophils # Man Monocytes # (Manual) PT INR Activated Clotting Time POC ABG pH POC ABG pCO2 POC ABG pO2 Sodium Potassium Chloride Carbon Dioxide BUN Creatinine Glucose POC Glucose 170 H 161 H 131 H Calcium Magnesium Direct Bilirubin AST ALT Alkaline Phosphatase Total Creatine Kinase CK-MB (CK-2) CK-MB (CK-2) Rel Index Troponin T C-Reactive Protein Total Protein Albumin Triglycerides Ur Specific [place] Urine WBC (Auto) 04/18/17 04/18/17 04/18/17 03:55 03:55 05:30 WBC RBC 3.05 L Hgb 9.8 L Hct 29.0 L MCV 95 H MCH Plt Count 113 L Lymph % (Auto) Eos % (Auto) 5.3 H Baso % (Auto) Lymph # Baso # Seg Neutrophils % 71.5 H Lymphocytes % (Manual) Monocytes % (Manual) Nucleated RBC % Seg Neutrophils # Seg Neutrophils # Man Monocytes # (Manual) PT INR Activated Clotting Time POC ABG pH 7.460 H POC ABG pCO2 30.8 L POC ABG pO2 129 H Sodium Potassium Chloride Carbon Dioxide 21 L BUN 25 H Creatinine 0.4 L Glucose 123 H POC Glucose Calcium 8.3 L Magnesium Direct Bilirubin AST ALT Alkaline Phosphatase Total Creatine Kinase CK-MB (CK-2) CK-MB (CK-2) Rel Index Troponin T C-Reactive Protein Total Protein Albumin Triglycerides Ur Specific [place] Urine WBC (Auto) 04/18/17 04/18/17 04/19/17 17:10 23:40 04:36 WBC RBC 3.21 L Hgb 10.2 L Hct 30.4 L MCV 95 H MCH Plt Count 131 L Lymph % (Auto) 12.1 L Eos % (Auto) 4.7 H Baso % (Auto) 2.4 H Lymph # 0.9 L Baso # 0.2 H Seg Neutrophils % 75.0 H Lymphocytes % (Manual) Monocytes % (Manual) Nucleated RBC % Seg Neutrophils # Seg Neutrophils # Man Monocytes # (Manual) PT INR Activated Clotting Time POC ABG pH POC ABG pCO2 POC ABG pO2 Sodium Potassium Chloride Carbon Dioxide BUN Creatinine Glucose POC Glucose 135 H 157 H Calcium Magnesium Direct Bilirubin AST ALT Alkaline Phosphatase Total Creatine Kinase CK-MB (CK-2) CK-MB (CK-2) Rel Index Troponin T C-Reactive Protein Total Protein Albumin Triglycerides Ur Specific [place] Urine WBC (Auto) 04/19/17 04/19/17 04/19/17 04:36 05:12 06:50 WBC RBC Hgb Hct MCV MCH Plt Count Lymph % (Auto) Eos % (Auto) Baso % (Auto) Lymph # Baso # Seg Neutrophils % Lymphocytes % (Manual) Monocytes % (Manual) Nucleated RBC % Seg Neutrophils # Seg Neutrophils # Man Monocytes # (Manual) PT INR Activated Clotting Time POC ABG pH 7.516 H POC ABG pCO2 28.0 L POC ABG pO2 Sodium Potassium Chloride Carbon Dioxide 21 L BUN 23 H Creatinine 0.2 L Glucose 137 H POC Glucose 131 H Calcium 7.9 L Magnesium Direct Bilirubin AST ALT Alkaline Phosphatase Total Creatine Kinase CK-MB (CK-2) CK-MB (CK-2) Rel Index Troponin T C-Reactive Protein Total Protein Albumin Triglycerides Ur Specific [place] Urine WBC (Auto) 04/19/17 04/19/17 04/20/17 12:36 17:42 00:12 WBC RBC Hgb Hct MCV MCH Plt Count Lymph % (Auto) Eos % (Auto) Baso % (Auto) Lymph # Baso # Seg Neutrophils % Lymphocytes % (Manual) Monocytes % (Manual) Nucleated RBC % Seg Neutrophils # Seg Neutrophils # Man Monocytes # (Manual) PT INR Activated Clotting Time POC ABG pH POC ABG pCO2 POC ABG pO2 Sodium Potassium Chloride Carbon Dioxide BUN Creatinine Glucose POC Glucose 128 H 140 H 132 H Calcium Magnesium Direct Bilirubin AST ALT Alkaline Phosphatase Total Creatine Kinase CK-MB (CK-2) CK-MB (CK-2) Rel Index Troponin T C-Reactive Protein Total Protein Albumin Triglycerides Ur Specific [place] Urine WBC (Auto) 04/20/17 04/20/17 04/20/17 03:35 03:35 05:10 WBC RBC 3.34 L Hgb 10.4 L Hct 31.6 L MCV 95 H MCH Plt Count Lymph % (Auto) 12.9 L Eos % (Auto) Baso % (Auto) Lymph # Baso # Seg Neutrophils % 77.3 H Lymphocytes % (Manual) Monocytes % (Manual) Nucleated RBC % Seg Neutrophils # Seg Neutrophils # Man Monocytes # (Manual) PT INR Activated Clotting Time POC ABG pH POC ABG pCO2 POC ABG pO2 Sodium Potassium Chloride Carbon Dioxide BUN Creatinine 0.3 L Glucose 155 H POC Glucose 135 H Calcium 7.8 L Magnesium Direct Bilirubin AST ALT Alkaline Phosphatase Total Creatine Kinase CK-MB (CK-2) CK-MB (CK-2) Rel Index Troponin T C-Reactive Protein Total Protein Albumin Triglycerides Ur Specific [place] Urine WBC (Auto) 04/20/17 04/20/17 04/21/17 12:49 18:21 00:05 WBC RBC Hgb Hct MCV MCH Plt Count Lymph % (Auto) Eos % (Auto) Baso % (Auto) Lymph # Baso # Seg Neutrophils % Lymphocytes % (Manual) Monocytes % (Manual) Nucleated RBC % Seg Neutrophils # Seg Neutrophils # Man Monocytes # (Manual) PT INR Activated Clotting Time POC ABG pH POC ABG pCO2 POC ABG pO2 Sodium Potassium Chloride Carbon Dioxide BUN Creatinine Glucose POC Glucose 155 H 165 H 141 H Calcium Magnesium Direct Bilirubin AST ALT Alkaline Phosphatase Total Creatine Kinase CK-MB (CK-2) CK-MB (CK-2) Rel Index Troponin T C-Reactive Protein Total Protein Albumin Triglycerides Ur Specific [place] Urine WBC (Auto) 04/21/17 04/21/17 04/21/17 06:00 12:11 17:04 WBC RBC Hgb Hct MCV MCH Plt Count Lymph % (Auto) Eos % (Auto) Baso % (Auto) Lymph # Baso # Seg Neutrophils % Lymphocytes % (Manual) Monocytes % (Manual) Nucleated RBC % Seg Neutrophils # Seg Neutrophils # Man Monocytes # (Manual) PT INR Activated Clotting Time POC ABG pH POC ABG pCO2 POC ABG pO2 Sodium Potassium Chloride Carbon Dioxide BUN Creatinine Glucose POC Glucose 152 H 165 H 156 H Calcium Magnesium Direct Bilirubin AST ALT Alkaline Phosphatase Total Creatine Kinase CK-MB (CK-2) CK-MB (CK-2) Rel Index Troponin T C-Reactive Protein Total Protein Albumin Triglycerides Ur Specific [place] Urine WBC (Auto) 04/21/17 04/21/17 04/22/17 22:00 23:59 05:49 WBC RBC Hgb Hct MCV MCH Plt Count Lymph % (Auto) Eos % (Auto) Baso % (Auto) Lymph # Baso # Seg Neutrophils % Lymphocytes % (Manual) Monocytes % (Manual) Nucleated RBC % Seg Neutrophils # Seg Neutrophils # Man Monocytes # (Manual) PT INR Activated Clotting Time POC ABG pH POC ABG pCO2 POC ABG pO2 Sodium Potassium Chloride Carbon Dioxide BUN Creatinine Glucose POC Glucose 166 H 173 H Calcium Magnesium Direct Bilirubin AST ALT Alkaline Phosphatase Total Creatine Kinase CK-MB (CK-2) CK-MB (CK-2) Rel Index Troponin T C-Reactive Protein Total Protein Albumin Triglycerides Ur Specific [place] Urine WBC (Auto) 10.0 H 04/22/17 04/22/17 04/23/17 11:11 18:04 00:37 WBC RBC Hgb Hct MCV MCH Plt Count Lymph % (Auto) Eos % (Auto) Baso % (Auto) Lymph # Baso # Seg Neutrophils % Lymphocytes % (Manual) Monocytes % (Manual) Nucleated RBC % Seg Neutrophils # Seg Neutrophils # Man Monocytes # (Manual) PT INR Activated Clotting Time POC ABG pH POC ABG pCO2 POC ABG pO2 Sodium Potassium Chloride Carbon Dioxide BUN Creatinine Glucose POC Glucose 172 H 140 H 135 H Calcium Magnesium Direct Bilirubin AST ALT Alkaline Phosphatase Total Creatine Kinase CK-MB (CK-2) CK-MB (CK-2) Rel Index Troponin T C-Reactive Protein Total Protein Albumin Triglycerides Ur Specific [place] Urine WBC (Auto) 04/23/17 04/23/17 04/23/17 05:33 06:20 11:10 WBC RBC 3.19 L Hgb 9.9 L Hct 30.0 L MCV MCH Plt Count Lymph % (Auto) 8.0 L Eos % (Auto) Baso % (Auto) Lymph # 0.8 L Baso # Seg Neutrophils % 84.5 H Lymphocytes % (Manual) Monocytes % (Manual) Nucleated RBC % Seg Neutrophils # 8.2 H Seg Neutrophils # Man Monocytes # (Manual) PT INR Activated Clotting Time POC ABG pH POC ABG pCO2 POC ABG pO2 Sodium Potassium Chloride Carbon Dioxide BUN Creatinine Glucose POC Glucose 134 H 134 H Calcium Magnesium Direct Bilirubin AST ALT Alkaline Phosphatase Total Creatine Kinase CK-MB (CK-2) CK-MB (CK-2) Rel Index Troponin T C-Reactive Protein Total Protein Albumin Triglycerides Ur Specific [place] Urine WBC (Auto) 04/23/17 04/24/17 04/24/17 17:26 00:53 06:46 WBC RBC Hgb Hct MCV MCH Plt Count Lymph % (Auto) Eos % (Auto) Baso % (Auto) Lymph # Baso # Seg Neutrophils % Lymphocytes % (Manual) Monocytes % (Manual) Nucleated RBC % Seg Neutrophils # Seg Neutrophils # Man Monocytes # (Manual) PT INR Activated Clotting Time POC ABG pH POC ABG pCO2 POC ABG pO2 Sodium Potassium Chloride Carbon Dioxide BUN Creatinine Glucose POC Glucose 164 H 146 H 125 H Calcium Magnesium Direct Bilirubin AST ALT Alkaline Phosphatase Total Creatine Kinase CK-MB (CK-2) CK-MB (CK-2) Rel Index Troponin T C-Reactive Protein Total Protein Albumin Triglycerides Ur Specific [place] Urine WBC (Auto) 04/24/17 04/24/17 04/24/17 11:55 17:50 23:36 WBC RBC Hgb Hct MCV MCH Plt Count Lymph % (Auto) Eos % (Auto) Baso % (Auto) Lymph # Baso # Seg Neutrophils % Lymphocytes % (Manual) Monocytes % (Manual) Nucleated RBC % Seg Neutrophils # Seg Neutrophils # Man Monocytes # (Manual) PT INR Activated Clotting Time POC ABG pH POC ABG pCO2 POC ABG pO2 Sodium Potassium Chloride Carbon Dioxide BUN Creatinine Glucose POC Glucose 156 H 146 H 131 H Calcium Magnesium Direct Bilirubin AST ALT Alkaline Phosphatase Total Creatine Kinase CK-MB (CK-2) CK-MB (CK-2) Rel Index Troponin T C-Reactive Protein Total Protein Albumin Triglycerides Ur Specific [place] Urine WBC (Auto) 04/25/17 04/25/17 04:51 05:16 WBC RBC Hgb Hct MCV MCH Plt Count Lymph % (Auto) Eos % (Auto) Baso % (Auto) Lymph # Baso # Seg Neutrophils % Lymphocytes % (Manual) Monocytes % (Manual) Nucleated RBC % Seg Neutrophils # Seg Neutrophils # Man Monocytes # (Manual) PT INR Activated Clotting Time POC ABG pH POC ABG pCO2 POC ABG pO2 Sodium Potassium Chloride Carbon Dioxide BUN Creatinine Glucose POC Glucose 139 H Calcium Magnesium Direct Bilirubin AST 105 H ALT 204 H Alkaline Phosphatase 189 H Total Creatine Kinase CK-MB (CK-2) CK-MB (CK-2) Rel Index Troponin T C-Reactive Protein Total Protein Albumin 2.4 L Triglycerides Ur Specific [place] Urine WBC (Auto)
[2017-04-25] MEDS: HEPARIN SUB-Q SCH ×2 (09:21→21:12)
[2017-04-25] MEDS: PLAVIX PO SCH (09:22)
[2017-04-25] MEDS: COLACE FEEDTUBE SCH ×2 (09:22→21:12)
[2017-04-25] MEDS: ASPIRIN PO SCH (09:22)
[2017-04-25] MEDS: ZESTRIL PO SCH (09:22)
[2017-04-25] MEDS: PROTONIX FEEDTUBE SCH (09:22)
[2017-04-25] MEDS: LASIX PO SCH (09:22)
--- NOTE | 2017-04-25 12:21 | Progress Note ---
Assessment and Plan Assessment and plan: Patient with V. fib arrest, anoxic encephalopathy, respiratory failure and vent dependent, status post trach and PEG, vegetative state, MRSA pneumonia Sepsis, poor prognosis, full CODE STATUS --Acute hypoxic respiratory failure; vent dependent status post trach and PEG; continue supportive care; --s/p cardiac arrest ; anoxic encephalopathy'vegetative state Continue supportive care --Acute anterior STEMI; status post PCI, cardiology following --MRSA pneumonia/aspiration pneumonia, contact isolation patient received full treatment with Zyvox --Hypertension; continue current antihypertensives and when necessary medications. --Febrile illness; aspiration pneumonia; sepsis; continue current antibiotics and supportive care --Cardiogenic shock; requiring pressors, closely monitor --s/p trach and PEG, continue PEG feeds --Electrolyte imbalance; replenishment protocol --DVT prophylaxis; Lovenox --Full CODE STATUS She has very poor prognosis, family aware Multiple family members at the bedside yesterday, patient's condition treatment plan discussed in detail with them answered every question CODE STATUS, different options of long-term treatment plan discussed with the patient's family members They verbalized understanding, requested to continue full CODE STATUS Plan of care discussed with the patient's nurse and case management. critical care time 32 minutes The high probability of a clinically significant, sudden or life threatening deterioration of the [Pulmonary, cardiac, neurological, renal] system(s) required my full and direct attention, intervention and personal management. The aggregate critical care time was [32] minutes. This time is in addition to time spent performing reported procedures but includes the following: [x] Data Review and interpretation [x] Patient assessment and monitoring of vital signs [x] Documentation [x] Medication orders and management History Interval history: Patient seen and evaluated medical records reviewed Clinically no change ,remains unresponsive, tracheostomy on vent Vital signs reviewed Hospitalist Physical - Constitutional Vitals: Temp Pulse Resp BP Pulse Ox 97.3 F L 81 25 H 85/51 98 04/25/17 08:00 04/25/17 12:00 04/25/17 12:00 04/25/17 12:00 04/25/17 12:00 General appearance: Present: no acute distress, well-nourished, other ( tracheostomy on ventilatory support) - EENT Eyes: Present: PERRL - Neck Neck: Present: supple - Respiratory Respiratory effort: normal Respiratory: bilateral: diminished, rhonchi, negative: rales, wheezing - Cardiovascular Rhythm: regular Heart Sounds: Present: S1 & S2 - Extremities Extremities: no ischemia, No edema - Abdominal General gastrointestinal: soft, non-tender, non-distended, normal bowel sounds - Integumentary Integumentary: Present: clear, warm - Psychiatric Psychiatric: other (unresponsive) - Neurologic Neurologic: other (unresponsive) Results - Labs CBC & Chem 7: 04/23/17 05:33 04/20/17 03:35 Labs: Laboratory Last Values WBC 9.7 K/mm3 (4.5-11.0) 04/23/17 05:33 RBC 3.19 M/mm3 (3.65-5.03) L 04/23/17 05:33 Hgb 9.9 gm/dl (11.8-15.2) L 04/23/17 05:33 Hct 30.0 % (35.5-45.6) L 04/23/17 05:33 MCV 94 fl (84-94) 04/23/17 05:33 MCH 31 pg (28-32) 04/23/17 05:33 MCHC 33 % (32-34) 04/23/17 05:33 RDW 14.6 % (13.2-15.2) 04/23/17 05:33 Plt Count 181 K/mm3 (140-440) 04/23/17 05:33 Lymph % (Auto) 8.0 % (13.4-35.0) L 04/23/17 05:33 [place] % (Auto) 5.3 % (0.0-7.3) 04/23/17 05:33 Eos % (Auto) 1.9 % (0.0-4.3) 04/23/17 05:33 Baso % (Auto) 0.3 % (0.0-1.8) 04/23/17 05:33 Lymph # 0.8 K/mm3 (1.2-5.4) L 04/23/17 05:33 [place] # 0.5 K/mm3 (0.0-0.8) 04/23/17 05:33 Eos # 0.2 K/mm3 (0.0-0.4) 04/23/17 05:33 Baso # 0.0 K/mm3 (0.0-0.1) 04/23/17 05:33 Add Manual Diff Complete 03/30/17 03:50 Total Counted 100 03/30/17 03:50 Seg Neutrophils % 84.5 % (40.0-70.0) H 04/23/17 05:33 Seg Neuts % (Manual) 65.0 % (40.0-70.0) 03/30/17 03:50 Band Neutrophils % 17.0 % 03/30/17 03:50 Lymphocytes % (Manual) 7.0 % (13.4-35.0) L 03/30/17 03:50 Reactive Lymphs % (Man) 0 % 03/30/17 03:50 Monocytes % (Manual) 7.0 % (0.0-7.3) 03/30/17 03:50 Eosinophils % (Manual) 0 % (0.0-4.3) 03/30/17 03:50 Basophils % (Manual) 0 % (0.0-1.8) 03/30/17 03:50 Metamyelocytes % 4.0 % 03/30/17 03:50 Myelocytes % 0 % 03/30/17 03:50 Promyelocytes % 0 % 03/30/17 03:50 Blast Cells % 0 % 03/30/17 03:50 Nucleated RBC % Not Reportable 03/30/17 03:50 Seg Neutrophils # 8.2 K/mm3 (1.8-7.7) H 04/23/17 05:33 Seg Neutrophils # Man 12.7 K/mm3 (1.8-7.7) H 03/30/17 03:50 Band Neutrophils # 3.3 K/mm3 03/30/17 03:50 Lymphocytes # (Manual) 1.4 K/mm3 (1.2-5.4) 03/30/17 03:50 Abs React Lymphs (Man) 0.0 K/mm3 03/30/17 03:50 Monocytes # (Manual) 1.4 K/mm3 (0.0-0.8) H 03/30/17 03:50 Eosinophils # (Manual) 0.0 K/mm3 (0.0-0.4) 03/30/17 03:50 Basophils # (Manual) 0.0 K/mm3 (0.0-0.1) 03/30/17 03:50 Metamyelocytes # 0.8 K/mm3 03/30/17 03:50 Myelocytes # 0.0 K/mm3 03/30/17 03:50 Promyelocytes # 0.0 K/mm3 03/30/17 03:50 Blast Cells # 0.0 K/mm3 03/30/17 03:50 WBC Morphology Not Reportable 03/30/17 03:50 Hypersegmented Neuts Not Reportable 03/30/17 03:50 Hyposegmented Neuts Not Reportable 03/30/17 03:50 Hypogranular Neuts Not Reportable 03/30/17 03:50 Smudge Cells Not Reportable 03/30/17 03:50 Toxic Granulation Not Reportable 03/30/17 03:50 Toxic Vacuolation Not Reportable 03/30/17 03:50 Dohle Bodies Not Reportable 03/30/17 03:50 Pelger-Huet Anomaly Not Reportable 03/30/17 03:50 Sherry Rods Not Reportable 03/30/17 03:50 Platelet Estimate Appears normal 03/30/17 03:50 Clumped Platelets Not Reportable 03/30/17 03:50 Plt Clumps, EDTA Not Reportable 03/30/17 03:50 Large Platelets Not Reportable 03/30/17 03:50 Giant Platelets Not Reportable 03/30/17 03:50 Platelet Satelliting Not Reportable 03/30/17 03:50 Plt Morphology Comment Not Reportable 03/30/17 03:50 RBC Morphology Not Reportable 03/30/17 03:50 Dimorphic RBCs Not Reportable 03/30/17 03:50 Polychromasia Not Reportable 03/30/17 03:50 Hypochromasia Not Reportable 03/30/17 03:50 Poikilocytosis Not Reportable 03/30/17 03:50 Anisocytosis Few 03/30/17 03:50 Microcytosis Not Reportable 03/30/17 03:50 Macrocytosis Not Reportable 03/30/17 03:50 Spherocytes Not Reportable 03/30/17 03:50 Pappenheimer Bodies Not Reportable 03/30/17 03:50 Sickle Cells Not Reportable 03/30/17 03:50 Target Cells Not Reportable 03/30/17 03:50 Tear Drop Cells Not Reportable 03/30/17 03:50 Ovalocytes Not Reportable 03/30/17 03:50 Helmet Cells Not Reportable 03/30/17 03:50 [place] Bodies Not Reportable 03/30/17 03:50 [place] Rings Not Reportable 03/30/17 03:50 Nusrat Cells Not Reportable 03/30/17 03:50 Bite Cells Not Reportable 03/30/17 03:50 Crenated Cell Not Reportable 03/30/17 03:50 Elliptocytes Not Reportable 03/30/17 03:50 Acanthocytes (Spur) Not Reportable 03/30/17 03:50 Rouleaux Not Reportable 03/30/17 03:50 Hemoglobin C Crystals Not Reportable 03/30/17 03:50 Schistocytes Not Reportable 03/30/17 03:50 Malaria parasites Not Reportable 03/30/17 03:50 Jermaine Bodies Not Reportable 03/30/17 03:50 Hem Pathologist Commnt No 03/30/17 03:50 PT 14.9 Sec. (12.2-14.9) 04/10/17 04:16 INR 1.11 (0.87-1.13) 04/10/17 04:16 APTT 27.8 Sec. (24.2-36.6) 04/10/17 04:16 Activated Clotting Time 92 (74-137) 03/29/17 17:47 POC ABG pH 7.516 (7.35-7.45) H 04/19/17 06:50 POC ABG pCO2 28.0 (35-45) L 04/19/17 06:50 POC ABG pO2 81 (80-105) 04/19/17 06:50 POC ABG HCO3 22.7 04/19/17 06:50 POC ABG Total CO2 24 04/19/17 06:50 POC ABG O2 Sat 97 04/19/17 06:50 POC ABG Base Excess 0 04/19/17 06:50 FiO2 30 % 04/19/17 06:50 Sodium 140 mmol/L (137-145) 04/20/17 03:35 Potassium 3.7 mmol/L (3.6-5.0) 04/20/17 03:35 Chloride 103.3 mmol/L (98-107) 04/20/17 03:35 Carbon Dioxide 23 mmol/L (22-30) 04/20/17 03:35 Anion Gap 17 mmol/L 04/20/17 03:35 BUN 20 mg/dL (9-20) 04/20/17 03:35 Creatinine 0.3 mg/dL (0.8-1.5) L 04/20/17 03:35 Estimated GFR > 60 ml/min 04/20/17 03:35 BUN/Creatinine Ratio 67 % 04/20/17 03:35 Glucose 155 mg/dL (75-100) H 04/20/17 03:35 POC Glucose 139 (70-105) H 04/25/17 05:16 Calcium 7.8 mg/dL (8.4-10.2) L 04/20/17 03:35 Phosphorus 3.50 mg/dL (2.5-4.5) 04/13/17 04:45 Magnesium 2.10 mg/dL (1.7-2.3) 04/23/17 05:33 Total Bilirubin 0.50 mg/dL (0.1-1.2) 04/25/17 04:51 Direct Bilirubin < 0.2 mg/dL (0-0.2) 04/25/17 04:51 Indirect Bilirubin 0.3 mg/dL 04/25/17 04:51 AST 105 units/L (5-40) H 04/25/17 04:51 ALT 204 units/L (7-56) H 04/25/17 04:51 Alkaline Phosphatase 189 units/L (35-129) H 04/25/17 04:51 Total Creatine Kinase 1404 units/L (55-170) H 04/12/17 21:36 CK-MB (CK-2) 8.0 ng/mL (0.0-4.0) H 04/12/17 21:36 CK-MB (CK-2) Rel Index 0.5 (0-4) 04/12/17 21:36 Troponin T 0.767 ng/mL (0.00-0.029) H* 04/12/17 21:36 C-Reactive Protein 21.80 mg/dL (0.00-1.30) H 03/30/17 16:04 Total Protein 6.4 g/dL (6.3-8.2) 04/25/17 04:51 Albumin 2.4 g/dL (3.9-5) L 04/25/17 04:51 Albumin/Globulin Ratio 0.6 % 04/25/17 04:51 Triglycerides 151 mg/dL (2-149) H 04/01/17 04:29 Cholesterol 164 mg/dL (50-199) 03/29/17 19:52 LDL Cholesterol Direct 81 mg/dL (50-130) 03/29/17 19:52 HDL Cholesterol 44 mg/dL (40-59) 03/29/17 19:52 Cholesterol/HDL Ratio 3.72 % 03/29/17 19:52 Urine Color [place] (Yellow) 04/21/17 22:00 Urine Turbidity Clear (Clear) 04/21/17 22:00 Urine pH 5.0 (5.0-7.0) 04/21/17 22:00 Ur Specific [place] 1.029 (1.003-1.030) 04/21/17 22:00 Urine Protein 30 mg/dl mg/dL (Negative) 04/21/17 22:00 Urine Glucose (UA) Neg mg/dL (Negative) 04/21/17 22:00 Urine Ketones Neg mg/dL (Negative) 04/21/17 22:00 Urine Blood Mod (Negative) 04/21/17 22:00 Urine Nitrite Neg (Negative) 04/21/17 22:00 Urine Bilirubin Neg (Negative) 04/21/17 22:00 Urine Urobilinogen 4.0 mg/dL (<2.0) 04/21/17 22:00 Ur Leukocyte Esterase Neg (Negative) 04/21/17 22:00 Urine WBC (Auto) 10.0 /HPF (0.0-6.0) H 04/21/17 22:00 Urine RBC (Auto) 44.0 /HPF (0.0-6.0) 04/21/17 22:00 U Epithel Cells (Auto) < 1.0 /HPF (0-13.0) 04/21/17 22:00 Amorphous Crystals 1+ 03/30/17 09:45 Urine Mucus 3+ /HPF 04/21/17 22:00 Urine Opiates Screen Presumptive negative 03/30/17 09:45 Urine Methadone Screen Presumptive negative 03/30/17 09:45 Ur Barbiturates Screen Presumptive negative 03/30/17 09:45 Ur Phencyclidine Scrn Presumptive negative 03/30/17 09:45 Ur Amphetamines Screen Presumptive positive 03/30/17 09:45 U Benzodiazepines Scrn Presumptive positive 03/30/17 09:45 Urine Cocaine Screen Presumptive negative 03/30/17 09:45 U Marijuana (THC) Screen Presumptive negative 03/30/17 09:45 Drugs of Abuse Note Disclamer 03/30/17 09:45 Blood Type O POSITIVE 03/29/17 11:35 Antibody Screen Negative 03/29/17 11:35
--- NOTE | 2017-04-25 15:22 | Progress Note ---
Assessment and Plan Out of hospital VF arrest Acute anterior STEMI s/p PCI of the LAD using BM stents deployed. reduced LVEF 30-35% by echocardiogram. DAPT resumed Respiratory failure on the vent via trach Anoxic brain injury Pneumonia: MRSA UTI and fever Elevated Transaminitis amiodarone and statins discontinued Continue supportive care. Prognosis remains very poor. We will follow on PRN basis Subjective Date of service: 04/25/17 Interval history: No acute events. Remains unresponsive Telemetry consistent with NSR and frequent atrial ectopy. Objective Vital Signs Temp Pulse Pulse Resp BP Pulse Ox Pulse Ox 04/25/17 14:00 90 16 96/62 99 04/25/17 13:40 88 21 94/60 99 04/25/17 13:00 83 24 96/60 04/25/17 12:30 83 95/59 04/25/17 12:00 98.6 F 81 81 25 H 85/51 98 04/25/17 11:00 83 19 94/58 04/25/17 10:00 80 24 92/56 04/25/17 09:45 83 20 95/59 99 04/25/17 09:30 98 04/25/17 09:22 87 91/58 04/25/17 09:00 85 24 91/58 04/25/17 08:00 97.3 F L 86 86 23 91/58 99 04/25/17 07:00 89 25 H 89/55 04/25/17 06:00 90 23 94/60 04/25/17 05:09 97/58 04/25/17 05:00 90 25 H 97/58 04/25/17 04:00 92 H 23 94/60 04/25/17 03:56 89 113/60 99 04/25/17 03:49 98.9 F 04/25/17 03:00 95 H 24 96/61 100 04/25/17 02:00 97 H 18 98/58 98 04/25/17 01:00 95 H 26 H 96/58 98 04/25/17 00:10 102 H 101/49 100 04/25/17 00:08 98/57 04/25/17 00:04 92 H 25 H 98/57 98 04/25/17 00:00 93 H 25 H 98/57 96 04/24/17 23:13 99.9 F H 01/29/18 23:00 100 H 31 H 104/60 04/24/17 22:51 98 04/24/17 22:00 93 H 29 H 99/58 04/24/17 21:30 98 H 04/24/17 21:00 102 H 29 H 106/67 90 04/24/17 20:00 99.3 F 97 H 26 H 100/63 04/24/17 19:29 99 H 100/65 98 04/24/17 19:00 98 H 30 H 102/64 04/24/17 18:41 103 H 102/69 97 04/24/17 18:39 97 04/24/17 18:05 103 H 107/58 04/24/17 18:00 102 H 28 H 107/58 91 04/24/17 17:00 97 H 25 H 100/62 04/24/17 16:00 98.7 F 90 90 24 93/55 93 - Physical Examination General: Other (unresponsive on the vent) HEENT: Positive: Other (unresponsive, vent) Neck: Positive: trachea midline. Negative: JVD/HJR Cardiac: Positive: Reg Rate and Rhythm Lungs: Positive: Rhonchi Neuro: Positive: Other (unresponsive post VF arrest) Abdomen: Positive: Soft, Active Bowel Sounds Skin: Positive: Clear Extremities: Absent: edema - Labs and Meds Cardiac Enzymes 04/25/17 Range/Units 04:51 AST 105 H (5-40) units/L Comprehensive Metabolic Panel 04/25/17 Range/Units 04:51 Direct Bilirubin < 0.2 (0-0.2) mg/dL Indirect Bilirubin 0.3 mg/dL AST 105 H (5-40) units/L ALT 204 H (7-56) units/L Alkaline Phosphatase 189 H (35-129) units/L Total Protein 6.4 (6.3-8.2) g/dL Albumin 2.4 L (3.9-5) g/dL
[2017-04-26] MEDS: MAXIPIME 2 GM in NACL 0.9% 20 ML IV SCH ×3 (05:43→22:19)
[2017-04-26] MEDS: LOPRESSOR PO SCH ×4 (05:43→18:15)
[2017-04-26] MEDS: NOVOLOG SUB-Q SCH ×4 (05:44→18:15)
--- NOTE | 2017-04-26 09:13 | Progress Note ---
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 No recs for today. Likely will check LFT's tomorrow 1. Continue PSV trials as tolerated. Currently on A/C, will attempt 24 hour trial in the next 1-2 days. 2. As per my partner, goal would be T-piece 17/10. Will need trach indefinitely given mental state 3. Continue vent support and management 4. Continue all other cardiac meds 5. Overall prognosis still remains poor given amount of downtime during arrest. 6. Restarted statin yesterday and obtained baseline LFT's. Will repeat later this week. CCT 31 minutes. Subjective Date of service: 04/26/17 Principal diagnosis: septic shock Interval history: No acute events. Mental status is unchanged. No family currently at bedside and currently on A/C Objective Vital Signs - 12hr 04/25/17 04/25/17 04/25/17 21:06 21:09 22:00 Temperature Pulse Rate 91 H 98 H 93 H Pulse Rate [ From Monitor] Pulse Rate [ Left Dorsalis Pedis] Pulse Rate [ Left Radial] Pulse Rate [ Right Dorsalis Pedis] Pulse Rate [ Right Radial] Respiratory 26 H 27 H Rate Blood Pressure 96/58 97/61 O2 Sat by Pulse 97 97 Oximetry O2 Sat by Pulse Oximetry [ Assessment] 04/25/17 04/25/17 04/25/17 23:00 23:09 23:25 Temperature Pulse Rate 90 95 H Pulse Rate [ From Monitor] Pulse Rate [ Left Dorsalis Pedis] Pulse Rate [ Left Radial] Pulse Rate [ Right Dorsalis Pedis] Pulse Rate [ Right Radial] Respiratory 18 Rate Blood Pressure 95/58 95/58 O2 Sat by Pulse 99 98 Oximetry O2 Sat by Pulse 95 Oximetry [ Assessment] 04/25/17 04/26/17 04/26/17 23:49 00:00 01:00 Temperature 99.1 F Pulse Rate 89 90 Pulse Rate [ 92 H From Monitor] Pulse Rate [ 92 H Left Dorsalis Pedis] Pulse Rate [ 92 H Left Radial] Pulse Rate [ 92 H Right Dorsalis Pedis] Pulse Rate [ 92 H Right Radial] Respiratory 26 H 22 Rate Blood Pressure 88/51 94/59 O2 Sat by Pulse 98 Oximetry O2 Sat by Pulse Oximetry [ Assessment] 04/26/17 04/26/17 04/26/17 02:00 03:00 03:46 Temperature Pulse Rate 90 88 Pulse Rate [ 90 From Monitor] Pulse Rate [ 90 Left Dorsalis Pedis] Pulse Rate [ 90 Left Radial] Pulse Rate [ 90 Right Dorsalis Pedis] Pulse Rate [ 90 Right Radial] Respiratory 26 H 26 H 24 Rate Blood Pressure 93/56 91/55 O2 Sat by Pulse 99 Oximetry O2 Sat by Pulse Oximetry [ Assessment] 04/26/17 04/26/17 04/26/17 04:00 05:00 05:43 Temperature 99.4 F Pulse Rate 89 88 98 H Pulse Rate [ From Monitor] Pulse Rate [ Left Dorsalis Pedis] Pulse Rate [ Left Radial] Pulse Rate [ Right Dorsalis Pedis] Pulse Rate [ Right Radial] Respiratory 25 H 23 Rate Blood Pressure 94/61 93/58 93/58 O2 Sat by Pulse 98 Oximetry O2 Sat by Pulse Oximetry [ Assessment] 04/26/17 06:00 Temperature Pulse Rate 97 H Pulse Rate [ From Monitor] Pulse Rate [ Left Dorsalis Pedis] Pulse Rate [ Left Radial] Pulse Rate [ Right Dorsalis Pedis] Pulse Rate [ Right Radial] Respiratory 25 H Rate Blood Pressure 93/56 O2 Sat by Pulse 98 Oximetry O2 Sat by Pulse Oximetry [ Assessment] Constitutional: comatose Eyes: non-icteric ENT: oropharynx moist Neck: supple Effort: normal Ascultation: Bilateral: clear, diminished breath sounds ( ) Percussion: Bilateral: not dull Cardiovascular: regular rate and rhythm (no mrg) Gastrointestinal: normoactive bowel sounds, soft, non-tender, non-distended, other (mild distention) Integumentary: normal, other (multiple tattoos) Extremities: no cyanosis, no edema, pink and warm Neurologic: other (comatose, flaccid extremities, good cough w/ suction) Psychiatric: other (unable to assess) CBC and BMP: 04/23/17 05:33 04/20/17 03:35 ABG, PT/INR, D-dimer: ABG POC ABG pH 7.516 (7.35-7.45) H 04/19/17 06:50 POC ABG pCO2 28.0 (35-45) L 04/19/17 06:50 POC ABG pO2 81 (80-105) 04/19/17 06:50 POC ABG HCO3 22.7 04/19/17 06:50 POC ABG Total CO2 24 04/19/17 06:50 POC ABG O2 Sat 97 04/19/17 06:50 PT/INR, D-dimer PT 14.9 Sec. (12.2-14.9) 04/10/17 04:16 INR 1.11 (0.87-1.13) 04/10/17 04:16 Abnormal lab findings: Abnormal Labs 03/29/17 03/29/17 03/29/17 11:35 11:35 11:40 WBC RBC Hgb Hct MCV 98 H MCH 33 H Plt Count Lymph % (Auto) Eos % (Auto) Baso % (Auto) Lymph # Baso # Seg Neutrophils % Lymphocytes % (Manual) Monocytes % (Manual) 9.0 H Nucleated RBC % 1.0 H Seg Neutrophils # Seg Neutrophils # Man Monocytes # (Manual) 0.9 H PT 15.8 H INR 1.20 H Activated Clotting Time POC ABG pH POC ABG pCO2 POC ABG pO2 Sodium Potassium 2.7 L* Chloride 95.3 L Carbon Dioxide 17 L BUN Creatinine Glucose 435 H POC Glucose Calcium Magnesium Direct Bilirubin AST ALT Alkaline Phosphatase Total Creatine Kinase CK-MB (CK-2) CK-MB (CK-2) Rel Index Troponin T C-Reactive Protein Total Protein 6.1 L Albumin 3.5 L Triglycerides Ur Specific [place] Urine WBC (Auto) 03/29/17 03/29/17 03/29/17 12:34 13:10 13:25 WBC RBC Hgb Hct MCV MCH Plt Count Lymph % (Auto) Eos % (Auto) Baso % (Auto) Lymph # Baso # Seg Neutrophils % Lymphocytes % (Manual) Monocytes % (Manual) Nucleated RBC % Seg Neutrophils # Seg Neutrophils # Man Monocytes # (Manual) PT INR Activated Clotting Time 142 H 169 H 175 H POC ABG pH POC ABG pCO2 POC ABG pO2 Sodium Potassium Chloride Carbon Dioxide BUN Creatinine Glucose POC Glucose Calcium Magnesium Direct Bilirubin AST ALT Alkaline Phosphatase Total Creatine Kinase CK-MB (CK-2) CK-MB (CK-2) Rel Index Troponin T C-Reactive Protein Total Protein Albumin Triglycerides Ur Specific [place] Urine WBC (Auto) 03/29/17 03/29/17 03/29/17 14:50 15:18 19:52 WBC RBC Hgb Hct MCV MCH Plt Count Lymph % (Auto) Eos % (Auto) Baso % (Auto) Lymph # Baso # Seg Neutrophils % Lymphocytes % (Manual) Monocytes % (Manual) Nucleated RBC % Seg Neutrophils # Seg Neutrophils # Man Monocytes # (Manual) PT INR Activated Clotting Time 175 H POC ABG pH 7.293 L POC ABG pCO2 POC ABG pO2 602 H Sodium Potassium Chloride Carbon Dioxide BUN Creatinine Glucose POC Glucose Calcium Magnesium Direct Bilirubin AST ALT Alkaline Phosphatase Total Creatine Kinase 7263 H CK-MB (CK-2) > 300.0 H CK-MB (CK-2) Rel Index 4.1 H Troponin T 8.080 H* D C-Reactive Protein Total Protein Albumin Triglycerides 195 H Ur Specific [place] Urine WBC (Auto) 03/30/17 03/30/17 03/30/17 03:50 03:50 06:19 WBC 19.5 H RBC Hgb Hct MCV MCH Plt Count Lymph % (Auto) Eos % (Auto) Baso % (Auto) Lymph # Baso # Seg Neutrophils % Lymphocytes % (Manual) 7.0 L Monocytes % (Manual) Nucleated RBC % Seg Neutrophils # Seg Neutrophils # Man 12.7 H Monocytes # (Manual) 1.4 H PT INR Activated Clotting Time POC ABG pH POC ABG pCO2 28.2 L POC ABG pO2 108 H Sodium Potassium Chloride 108.9 H Carbon Dioxide 15 L BUN 25 H Creatinine Glucose 158 H POC Glucose Calcium 8.1 L Magnesium Direct Bilirubin AST ALT Alkaline Phosphatase Total Creatine Kinase 7963 H CK-MB (CK-2) > 300.0 H CK-MB (CK-2) Rel Index Troponin T 6.850 H* C-Reactive Protein Total Protein Albumin Triglycerides Ur Specific [place] Urine WBC (Auto) 03/30/17 03/30/17 03/31/17 09:45 16:04 02:19 WBC RBC Hgb Hct MCV MCH Plt Count Lymph % (Auto) Eos % (Auto) Baso % (Auto) Lymph # Baso # Seg Neutrophils % Lymphocytes % (Manual) Monocytes % (Manual) Nucleated RBC % Seg Neutrophils # Seg Neutrophils # Man Monocytes # (Manual) PT INR Activated Clotting Time POC ABG pH POC ABG pCO2 POC ABG pO2 Sodium Potassium Chloride Carbon Dioxide BUN Creatinine Glucose POC Glucose 137 H Calcium Magnesium Direct Bilirubin AST ALT Alkaline Phosphatase Total Creatine Kinase CK-MB (CK-2) CK-MB (CK-2) Rel Index Troponin T C-Reactive Protein 21.80 H Total Protein Albumin Triglycerides Ur Specific [place] 1.031 H Urine WBC (Auto) 03/31/17 03/31/17 03/31/17 03:57 06:54 09:22 WBC RBC Hgb Hct MCV MCH Plt Count Lymph % (Auto) Eos % (Auto) Baso % (Auto) Lymph # Baso # Seg Neutrophils % Lymphocytes % (Manual) Monocytes % (Manual) Nucleated RBC % Seg Neutrophils # Seg Neutrophils # Man Monocytes # (Manual) PT INR Activated Clotting Time POC ABG pH 7.475 H POC ABG pCO2 25.4 L POC ABG pO2 62 L Sodium Potassium Chloride Carbon Dioxide 19 L BUN 22 H Creatinine 0.6 L Glucose 148 H POC Glucose 143 H Calcium 8.3 L Magnesium Direct Bilirubin AST ALT Alkaline Phosphatase Total Creatine Kinase CK-MB (CK-2) CK-MB (CK-2) Rel Index Troponin T C-Reactive Protein Total Protein Albumin Triglycerides Ur Specific [place] Urine WBC (Auto) 03/31/17 03/31/17 03/31/17 11:40 17:47 23:38 WBC RBC Hgb Hct MCV MCH Plt Count Lymph % (Auto) Eos % (Auto) Baso % (Auto) Lymph # Baso # Seg Neutrophils % Lymphocytes % (Manual) Monocytes % (Manual) Nucleated RBC % Seg Neutrophils # Seg Neutrophils # Man Monocytes # (Manual) PT INR Activated Clotting Time POC ABG pH POC ABG pCO2 POC ABG pO2 Sodium Potassium Chloride Carbon Dioxide BUN Creatinine Glucose POC Glucose 127 H 137 H 148 H Calcium Magnesium Direct Bilirubin AST ALT Alkaline Phosphatase Total Creatine Kinase CK-MB (CK-2) CK-MB (CK-2) Rel Index Troponin T C-Reactive Protein Total Protein Albumin Triglycerides Ur Specific [place] Urine WBC (Auto) 04/01/17 04/01/17 04/01/17 04:29 05:01 11:54 WBC RBC Hgb Hct MCV MCH Plt Count Lymph % (Auto) Eos % (Auto) Baso % (Auto) Lymph # Baso # Seg Neutrophils % Lymphocytes % (Manual) Monocytes % (Manual) Nucleated RBC % Seg Neutrophils # Seg Neutrophils # Man Monocytes # (Manual) PT INR Activated Clotting Time POC ABG pH 7.513 H POC ABG pCO2 22.1 L POC ABG pO2 64 L Sodium Potassium Chloride Carbon Dioxide BUN Creatinine Glucose POC Glucose 121 H Calcium Magnesium Direct Bilirubin AST ALT Alkaline Phosphatase Total Creatine Kinase CK-MB (CK-2) CK-MB (CK-2) Rel Index Troponin T C-Reactive Protein Total Protein Albumin Triglycerides 151 H Ur Specific [place] Urine WBC (Auto) 04/01/17 04/02/17 04/02/17 18:17 00:11 04:52 WBC RBC Hgb Hct MCV MCH Plt Count Lymph % (Auto) Eos % (Auto) Baso % (Auto) Lymph # Baso # Seg Neutrophils % Lymphocytes % (Manual) Monocytes % (Manual) Nucleated RBC % Seg Neutrophils # Seg Neutrophils # Man Monocytes # (Manual) PT INR Activated Clotting Time POC ABG pH 7.524 H POC ABG pCO2 25.5 L POC ABG pO2 66 L Sodium Potassium Chloride Carbon Dioxide BUN Creatinine Glucose POC Glucose 117 H 122 H Calcium Magnesium Direct Bilirubin AST ALT Alkaline Phosphatase Total Creatine Kinase CK-MB (CK-2) CK-MB (CK-2) Rel Index Troponin T C-Reactive Protein Total Protein Albumin Triglycerides Ur Specific [place] Urine WBC (Auto) 04/02/17 04/02/17 04/02/17 05:18 10:41 12:19 WBC RBC Hgb Hct MCV MCH Plt Count Lymph % (Auto) Eos % (Auto) Baso % (Auto) Lymph # Baso # Seg Neutrophils % Lymphocytes % (Manual) Monocytes % (Manual) Nucleated RBC % Seg Neutrophils # Seg Neutrophils # Man Monocytes # (Manual) PT INR Activated Clotting Time POC ABG pH 7.534 H POC ABG pCO2 27.4 L POC ABG pO2 Sodium Potassium Chloride Carbon Dioxide BUN Creatinine Glucose POC Glucose 132 H 129 H Calcium Magnesium Direct Bilirubin AST ALT Alkaline Phosphatase Total Creatine Kinase CK-MB (CK-2) CK-MB (CK-2) Rel Index Troponin T C-Reactive Protein Total Protein Albumin Triglycerides Ur Specific [place] Urine WBC (Auto) 04/02/17 04/03/17 04/03/17 18:05 00:08 05:09 WBC RBC Hgb Hct MCV MCH Plt Count Lymph % (Auto) Eos % (Auto) Baso % (Auto) Lymph # Baso # Seg Neutrophils % Lymphocytes % (Manual) Monocytes % (Manual) Nucleated RBC % Seg Neutrophils # Seg Neutrophils # Man Monocytes # (Manual) PT INR Activated Clotting Time POC ABG pH 7.455 H POC ABG pCO2 33.2 L POC ABG pO2 120 H Sodium Potassium Chloride Carbon Dioxide BUN Creatinine Glucose POC Glucose 136 H 128 H Calcium Magnesium Direct Bilirubin AST ALT Alkaline Phosphatase Total Creatine Kinase CK-MB (CK-2) CK-MB (CK-2) Rel Index Troponin T C-Reactive Protein Total Protein Albumin Triglycerides Ur Specific [place] Urine WBC (Auto) 04/03/17 04/03/17 04/03/17 06:32 11:54 12:16 WBC 11.9 H RBC Hgb Hct MCV MCH Plt Count 125 L Lymph % (Auto) 4.8 L Eos % (Auto) Baso % (Auto) Lymph # 0.6 L Baso # Seg Neutrophils % 86.7 H Lymphocytes % (Manual) Monocytes % (Manual) Nucleated RBC % Seg Neutrophils # 10.3 H Seg Neutrophils # Man Monocytes # (Manual) PT INR Activated Clotting Time POC ABG pH POC ABG pCO2 POC ABG pO2 Sodium Potassium Chloride Carbon Dioxide BUN Creatinine Glucose POC Glucose 138 H 143 H Calcium Magnesium Direct Bilirubin AST ALT Alkaline Phosphatase Total Creatine Kinase CK-MB (CK-2) CK-MB (CK-2) Rel Index Troponin T C-Reactive Protein Total Protein Albumin Triglycerides Ur Specific [place] Urine WBC (Auto) 04/03/17 04/03/17 04/04/17 17:33 23:59 04:34 WBC RBC Hgb Hct MCV MCH Plt Count Lymph % (Auto) Eos % (Auto) Baso % (Auto) Lymph # Baso # Seg Neutrophils % Lymphocytes % (Manual) Monocytes % (Manual) Nucleated RBC % Seg Neutrophils # Seg Neutrophils # Man Monocytes # (Manual) PT INR Activated Clotting Time POC ABG pH 7.457 H POC ABG pCO2 29.8 L POC ABG pO2 76 L Sodium Potassium Chloride Carbon Dioxide BUN Creatinine Glucose POC Glucose 130 H 155 H Calcium Magnesium Direct Bilirubin AST ALT Alkaline Phosphatase Total Creatine Kinase CK-MB (CK-2) CK-MB (CK-2) Rel Index Troponin T C-Reactive Protein Total Protein Albumin Triglycerides Ur Specific [place] Urine WBC (Auto) 04/04/17 04/04/17 04/04/17 05:27 12:22 18:18 WBC RBC Hgb Hct MCV MCH Plt Count Lymph % (Auto) Eos % (Auto) Baso % (Auto) Lymph # Baso # Seg Neutrophils % Lymphocytes % (Manual) Monocytes % (Manual) Nucleated RBC % Seg Neutrophils # Seg Neutrophils # Man Monocytes # (Manual) PT INR Activated Clotting Time POC ABG pH POC ABG pCO2 POC ABG pO2 Sodium Potassium Chloride Carbon Dioxide BUN Creatinine Glucose POC Glucose 164 H 146 H 130 H Calcium Magnesium Direct Bilirubin AST ALT Alkaline Phosphatase Total Creatine Kinase CK-MB (CK-2) CK-MB (CK-2) Rel Index Troponin T C-Reactive Protein Total Protein Albumin Triglycerides Ur Specific [place] Urine WBC (Auto) 04/05/17 04/05/17 04/05/17 04:43 05:28 11:36 WBC RBC Hgb Hct MCV MCH Plt Count Lymph % (Auto) Eos % (Auto) Baso % (Auto) Lymph # Baso # Seg Neutrophils % Lymphocytes % (Manual) Monocytes % (Manual) Nucleated RBC % Seg Neutrophils # Seg Neutrophils # Man Monocytes # (Manual) PT INR Activated Clotting Time POC ABG pH 7.479 H POC ABG pCO2 33.5 L POC ABG pO2 76 L Sodium Potassium Chloride Carbon Dioxide BUN Creatinine Glucose POC Glucose 145 H 136 H Calcium Magnesium Direct Bilirubin AST ALT Alkaline Phosphatase Total Creatine Kinase CK-MB (CK-2) CK-MB (CK-2) Rel Index Troponin T C-Reactive Protein Total Protein Albumin Triglycerides Ur Specific [place] Urine WBC (Auto) 04/05/17 04/06/17 04/06/17 17:58 00:16 05:26 WBC RBC Hgb Hct MCV MCH Plt Count Lymph % (Auto) Eos % (Auto) Baso % (Auto) Lymph # Baso # Seg Neutrophils % Lymphocytes % (Manual) Monocytes % (Manual) Nucleated RBC % Seg Neutrophils # Seg Neutrophils # Man Monocytes # (Manual) PT INR Activated Clotting Time POC ABG pH POC ABG pCO2 POC ABG pO2 Sodium Potassium Chloride Carbon Dioxide BUN Creatinine Glucose POC Glucose 130 H 159 H 146 H Calcium Magnesium Direct Bilirubin AST ALT Alkaline Phosphatase Total Creatine Kinase CK-MB (CK-2) CK-MB (CK-2) Rel Index Troponin T C-Reactive Protein Total Protein Albumin Triglycerides Ur Specific [place] Urine WBC (Auto) 04/06/17 04/06/17 04/07/17 13:11 16:54 11:45 WBC RBC Hgb Hct MCV MCH Plt Count Lymph % (Auto) Eos % (Auto) Baso % (Auto) Lymph # Baso # Seg Neutrophils % Lymphocytes % (Manual) Monocytes % (Manual) Nucleated RBC % Seg Neutrophils # Seg Neutrophils # Man Monocytes # (Manual) PT INR Activated Clotting Time POC ABG pH 7.517 H POC ABG pCO2 32.1 L POC ABG pO2 Sodium Potassium Chloride Carbon Dioxide BUN Creatinine Glucose POC Glucose 132 H 123 H Calcium Magnesium Direct Bilirubin AST ALT Alkaline Phosphatase Total Creatine Kinase CK-MB (CK-2) CK-MB (CK-2) Rel Index Troponin T C-Reactive Protein Total Protein Albumin Triglycerides Ur Specific [place] Urine WBC (Auto) 04/07/17 04/07/17 04/07/17 12:51 17:40 23:55 WBC RBC Hgb Hct MCV MCH Plt Count Lymph % (Auto) Eos % (Auto) Baso % (Auto) Lymph # Baso # Seg Neutrophils % Lymphocytes % (Manual) Monocytes % (Manual) Nucleated RBC % Seg Neutrophils # Seg Neutrophils # Man Monocytes # (Manual) PT INR Activated Clotting Time POC ABG pH POC ABG pCO2 POC ABG pO2 Sodium Potassium Chloride Carbon Dioxide BUN Creatinine Glucose POC Glucose 138 H 154 H 143 H Calcium Magnesium Direct Bilirubin AST ALT Alkaline Phosphatase Total Creatine Kinase CK-MB (CK-2) CK-MB (CK-2) Rel Index Troponin T C-Reactive Protein Total Protein Albumin Triglycerides Ur Specific [place] Urine WBC (Auto) 04/08/17 04/08/17 04/08/17 05:27 11:14 17:44 WBC RBC Hgb Hct MCV MCH Plt Count Lymph % (Auto) Eos % (Auto) Baso % (Auto) Lymph # Baso # Seg Neutrophils % Lymphocytes % (Manual) Monocytes % (Manual) Nucleated RBC % Seg Neutrophils # Seg Neutrophils # Man Monocytes # (Manual) PT INR Activated Clotting Time POC ABG pH POC ABG pCO2 POC ABG pO2 Sodium Potassium Chloride Carbon Dioxide BUN Creatinine Glucose POC Glucose 142 H 153 H 129 H Calcium Magnesium Direct Bilirubin AST ALT Alkaline Phosphatase Total Creatine Kinase CK-MB (CK-2) CK-MB (CK-2) Rel Index Troponin T C-Reactive Protein Total Protein Albumin Triglycerides Ur Specific [place] Urine WBC (Auto) 04/09/17 04/09/17 04/09/17 08:20 11:21 17:37 WBC RBC Hgb Hct MCV MCH Plt Count Lymph % (Auto) Eos % (Auto) Baso % (Auto) Lymph # Baso # Seg Neutrophils % Lymphocytes % (Manual) Monocytes % (Manual) Nucleated RBC % Seg Neutrophils # Seg Neutrophils # Man Monocytes # (Manual) PT INR Activated Clotting Time POC ABG pH POC ABG pCO2 POC ABG pO2 Sodium 147 H Potassium Chloride 108.8 H Carbon Dioxide BUN 39 H Creatinine 0.5 L Glucose 138 H POC Glucose 152 H 109 H Calcium Magnesium Direct Bilirubin AST ALT Alkaline Phosphatase Total Creatine Kinase CK-MB (CK-2) CK-MB (CK-2) Rel Index Troponin T C-Reactive Protein Total Protein Albumin Triglycerides Ur Specific [place] Urine WBC (Auto) 04/10/17 04/10/17 04/10/17 00:13 04:16 04:16 WBC RBC Hgb 11.5 L Hct MCV 96 H MCH Plt Count 103 L Lymph % (Auto) 11.1 L Eos % (Auto) Baso % (Auto) Lymph # Baso # Seg Neutrophils % 81.5 H Lymphocytes % (Manual) Monocytes % (Manual) Nucleated RBC % Seg Neutrophils # 8.8 H Seg Neutrophils # Man Monocytes # (Manual) PT INR Activated Clotting Time POC ABG pH POC ABG pCO2 POC ABG pO2 Sodium 148 H Potassium Chloride 109.0 H Carbon Dioxide BUN 36 H Creatinine 0.5 L Glucose 131 H POC Glucose 127 H Calcium 8.1 L Magnesium 2.40 H Direct Bilirubin AST 206 H ALT 228 H Alkaline Phosphatase 178 H Total Creatine Kinase CK-MB (CK-2) CK-MB (CK-2) Rel Index Troponin T C-Reactive Protein Total Protein Albumin 2.8 L Triglycerides Ur Specific [place] Urine WBC (Auto) 04/10/17 04/10/17 04/10/17 06:01 11:57 18:27 WBC RBC Hgb Hct MCV MCH Plt Count Lymph % (Auto) Eos % (Auto) Baso % (Auto) Lymph # Baso # Seg Neutrophils % Lymphocytes % (Manual) Monocytes % (Manual) Nucleated RBC % Seg Neutrophils # Seg Neutrophils # Man Monocytes # (Manual) PT INR Activated Clotting Time POC ABG pH POC ABG pCO2 POC ABG pO2 Sodium Potassium Chloride Carbon Dioxide BUN Creatinine Glucose POC Glucose 108 H 154 H 130 H Calcium Magnesium Direct Bilirubin AST ALT Alkaline Phosphatase Total Creatine Kinase CK-MB (CK-2) CK-MB (CK-2) Rel Index Troponin T C-Reactive Protein Total Protein Albumin Triglycerides Ur Specific [place] Urine WBC (Auto) 04/11/17 04/11/17 04/12/17 12:25 17:10 00:22 WBC RBC Hgb Hct MCV MCH Plt Count Lymph % (Auto) Eos % (Auto) Baso % (Auto) Lymph # Baso # Seg Neutrophils % Lymphocytes % (Manual) Monocytes % (Manual) Nucleated RBC % Seg Neutrophils # Seg Neutrophils # Man Monocytes # (Manual) PT INR Activated Clotting Time POC ABG pH POC ABG pCO2 POC ABG pO2 Sodium Potassium Chloride Carbon Dioxide BUN Creatinine Glucose POC Glucose 107 H 129 H 128 H Calcium Magnesium Direct Bilirubin AST ALT Alkaline Phosphatase Total Creatine Kinase CK-MB (CK-2) CK-MB (CK-2) Rel Index Troponin T C-Reactive Protein Total Protein Albumin Triglycerides Ur Specific [place] Urine WBC (Auto) 04/12/17 04/12/17 04/12/17 05:00 11:57 17:47 WBC RBC Hgb Hct MCV MCH Plt Count Lymph % (Auto) Eos % (Auto) Baso % (Auto) Lymph # Baso # Seg Neutrophils % Lymphocytes % (Manual) Monocytes % (Manual) Nucleated RBC % Seg Neutrophils # Seg Neutrophils # Man Monocytes # (Manual) PT INR Activated Clotting Time POC ABG pH POC ABG pCO2 POC ABG pO2 Sodium Potassium Chloride Carbon Dioxide BUN Creatinine Glucose POC Glucose 140 H 142 H Calcium Magnesium Direct Bilirubin AST 158 H ALT 184 H Alkaline Phosphatase 170 H Total Creatine Kinase CK-MB (CK-2) CK-MB (CK-2) Rel Index Troponin T C-Reactive Protein Total Protein Albumin 2.8 L Triglycerides Ur Specific [place] Urine WBC (Auto) 04/12/17 04/12/17 04/13/17 21:36 21:36 01:37 WBC RBC Hgb Hct MCV MCH Plt Count Lymph % (Auto) Eos % (Auto) Baso % (Auto) Lymph # Baso # Seg Neutrophils % Lymphocytes % (Manual) Monocytes % (Manual) Nucleated RBC % Seg Neutrophils # Seg Neutrophils # Man Monocytes # (Manual) PT INR Activated Clotting Time POC ABG pH POC ABG pCO2 POC ABG pO2 Sodium Potassium Chloride Carbon Dioxide BUN Creatinine Glucose POC Glucose 126 H Calcium Magnesium Direct Bilirubin AST ALT Alkaline Phosphatase Total Creatine Kinase 1404 H CK-MB (CK-2) 8.0 H CK-MB (CK-2) Rel Index Troponin T 0.767 H* C-Reactive Protein Total Protein Albumin Triglycerides Ur Specific [place] Urine WBC (Auto) 04/13/17 04/13/17 04/13/17 04:45 04:52 12:17 WBC RBC Hgb Hct MCV MCH Plt Count Lymph % (Auto) Eos % (Auto) Baso % (Auto) Lymph # Baso # Seg Neutrophils % Lymphocytes % (Manual) Monocytes % (Manual) Nucleated RBC % Seg Neutrophils # Seg Neutrophils # Man Monocytes # (Manual) PT INR Activated Clotting Time POC ABG pH POC ABG pCO2 POC ABG pO2 Sodium 148 H Potassium Chloride 112.8 H Carbon Dioxide BUN 33 H Creatinine 0.4 L Glucose 121 H POC Glucose 126 H 149 H Calcium Magnesium Direct Bilirubin AST 160 H ALT 189 H Alkaline Phosphatase 166 H Total Creatine Kinase CK-MB (CK-2) CK-MB (CK-2) Rel Index Troponin T C-Reactive Protein Total Protein Albumin 2.6 L Triglycerides Ur Specific [place] Urine WBC (Auto) 04/13/17 04/14/17 04/14/17 17:45 00:20 00:45 WBC RBC Hgb Hct MCV MCH Plt Count Lymph % (Auto) Eos % (Auto) Baso % (Auto) Lymph # Baso # Seg Neutrophils % Lymphocytes % (Manual) Monocytes % (Manual) Nucleated RBC % Seg Neutrophils # Seg Neutrophils # Man Monocytes # (Manual) PT INR Activated Clotting Time POC ABG pH POC ABG pCO2 POC ABG pO2 Sodium Potassium Chloride Carbon Dioxide BUN Creatinine Glucose POC Glucose 130 H 144 H 144 H Calcium Magnesium Direct Bilirubin AST ALT Alkaline Phosphatase Total Creatine Kinase CK-MB (CK-2) CK-MB (CK-2) Rel Index Troponin T C-Reactive Protein Total Protein Albumin Triglycerides Ur Specific [place] Urine WBC (Auto) 04/14/17 04/14/17 04/14/17 05:40 11:06 11:31 WBC RBC Hgb Hct MCV MCH Plt Count Lymph % (Auto) Eos % (Auto) Baso % (Auto) Lymph # Baso # Seg Neutrophils % Lymphocytes % (Manual) Monocytes % (Manual) Nucleated RBC % Seg Neutrophils # Seg Neutrophils # Man Monocytes # (Manual) PT INR Activated Clotting Time POC ABG pH POC ABG pCO2 POC ABG pO2 Sodium Potassium Chloride Carbon Dioxide BUN Creatinine Glucose POC Glucose 139 H 123 H Calcium Magnesium Direct Bilirubin AST ALT Alkaline Phosphatase Total Creatine Kinase CK-MB (CK-2) CK-MB (CK-2) Rel Index Troponin T C-Reactive Protein Total Protein Albumin Triglycerides Ur Specific [place] 1.033 H Urine WBC (Auto) > 182.0 H 04/14/17 04/14/17 04/15/17 18:00 23:52 05:15 WBC 12.5 H RBC 3.38 L Hgb 10.6 L Hct 32.7 L MCV 97 H MCH Plt Count 107 L Lymph % (Auto) 8.7 L Eos % (Auto) Baso % (Auto) Lymph # 1.1 L Baso # Seg Neutrophils % 86.1 H Lymphocytes % (Manual) Monocytes % (Manual) Nucleated RBC % Seg Neutrophils # 10.7 H Seg Neutrophils # Man Monocytes # (Manual) PT INR Activated Clotting Time POC ABG pH POC ABG pCO2 POC ABG pO2 Sodium Potassium Chloride Carbon Dioxide BUN Creatinine Glucose POC Glucose 133 H 133 H Calcium Magnesium Direct Bilirubin AST ALT Alkaline Phosphatase Total Creatine Kinase CK-MB (CK-2) CK-MB (CK-2) Rel Index Troponin T C-Reactive Protein Total Protein Albumin Triglycerides Ur Specific [place] Urine WBC (Auto) 04/15/17 04/15/17 04/15/17 05:15 05:25 11:50 WBC RBC Hgb Hct MCV MCH Plt Count Lymph % (Auto) Eos % (Auto) Baso % (Auto) Lymph # Baso # Seg Neutrophils % Lymphocytes % (Manual) Monocytes % (Manual) Nucleated RBC % Seg Neutrophils # Seg Neutrophils # Man Monocytes # (Manual) PT INR Activated Clotting Time POC ABG pH POC ABG pCO2 POC ABG pO2 Sodium 149 H Potassium 3.5 L Chloride 114.1 H Carbon Dioxide 21 L BUN 29 H Creatinine 0.4 L Glucose 128 H POC Glucose 133 H 107 H Calcium 8.3 L Magnesium Direct Bilirubin 0.4 H AST 149 H ALT 182 H Alkaline Phosphatase 143 H Total Creatine Kinase CK-MB (CK-2) CK-MB (CK-2) Rel Index Troponin T C-Reactive Protein Total Protein Albumin 2.5 L Triglycerides Ur Specific [place] Urine WBC (Auto) 04/15/17 04/16/17 04/16/17 16:55 00:02 03:17 WBC RBC 3.39 L Hgb 10.5 L Hct 32.4 L MCV 96 H MCH Plt Count 106 L Lymph % (Auto) 6.7 L Eos % (Auto) Baso % (Auto) Lymph # 0.6 L Baso # Seg Neutrophils % 86.8 H Lymphocytes % (Manual) Monocytes % (Manual) Nucleated RBC % Seg Neutrophils # 8.2 H Seg Neutrophils # Man Monocytes # (Manual) PT INR Activated Clotting Time POC ABG pH POC ABG pCO2 POC ABG pO2 Sodium Potassium Chloride Carbon Dioxide BUN Creatinine Glucose POC Glucose 146 H 148 H Calcium Magnesium Direct Bilirubin AST ALT Alkaline Phosphatase Total Creatine Kinase CK-MB (CK-2) CK-MB (CK-2) Rel Index Troponin T C-Reactive Protein Total Protein Albumin Triglycerides Ur Specific [place] Urine WBC (Auto) 04/16/17 04/16/17 04/16/17 03:17 05:19 11:13 WBC RBC Hgb Hct MCV MCH Plt Count Lymph % (Auto) Eos % (Auto) Baso % (Auto) Lymph # Baso # Seg Neutrophils % Lymphocytes % (Manual) Monocytes % (Manual) Nucleated RBC % Seg Neutrophils # Seg Neutrophils # Man Monocytes # (Manual) PT INR Activated Clotting Time POC ABG pH POC ABG pCO2 POC ABG pO2 Sodium 149 H Potassium Chloride 111.1 H Carbon Dioxide 20 L BUN 27 H Creatinine 0.3 L Glucose 156 H POC Glucose 171 H 169 H Calcium 8.3 L Magnesium Direct Bilirubin AST ALT Alkaline Phosphatase Total Creatine Kinase CK-MB (CK-2) CK-MB (CK-2) Rel Index Troponin T C-Reactive Protein Total Protein Albumin Triglycerides Ur Specific [place] Urine WBC (Auto) 04/16/17 04/17/17 04/17/17 17:03 00:00 05:09 WBC RBC Hgb Hct MCV MCH Plt Count Lymph % (Auto) Eos % (Auto) Baso % (Auto) Lymph # Baso # Seg Neutrophils % Lymphocytes % (Manual) Monocytes % (Manual) Nucleated RBC % Seg Neutrophils # Seg Neutrophils # Man Monocytes # (Manual) PT INR Activated Clotting Time POC ABG pH POC ABG pCO2 POC ABG pO2 Sodium Potassium Chloride Carbon Dioxide BUN Creatinine Glucose POC Glucose 151 H 165 H 145 H Calcium Magnesium Direct Bilirubin AST ALT Alkaline Phosphatase Total Creatine Kinase CK-MB (CK-2) CK-MB (CK-2) Rel Index Troponin T C-Reactive Protein Total Protein Albumin Triglycerides Ur Specific [place] Urine WBC (Auto) 04/17/17 04/17/17 04/18/17 11:38 17:47 00:01 WBC RBC Hgb Hct MCV MCH Plt Count Lymph % (Auto) Eos % (Auto) Baso % (Auto) Lymph # Baso # Seg Neutrophils % Lymphocytes % (Manual) Monocytes % (Manual) Nucleated RBC % Seg Neutrophils # Seg Neutrophils # Man Monocytes # (Manual) PT INR Activated Clotting Time POC ABG pH POC ABG pCO2 POC ABG pO2 Sodium Potassium Chloride Carbon Dioxide BUN Creatinine Glucose POC Glucose 170 H 161 H 131 H Calcium Magnesium Direct Bilirubin AST ALT Alkaline Phosphatase Total Creatine Kinase CK-MB (CK-2) CK-MB (CK-2) Rel Index Troponin T C-Reactive Protein Total Protein Albumin Triglycerides Ur Specific [place] Urine WBC (Auto) 04/18/17 04/18/17 04/18/17 03:55 03:55 05:30 WBC RBC 3.05 L Hgb 9.8 L Hct 29.0 L MCV 95 H MCH Plt Count 113 L Lymph % (Auto) Eos % (Auto) 5.3 H Baso % (Auto) Lymph # Baso # Seg Neutrophils % 71.5 H Lymphocytes % (Manual) Monocytes % (Manual) Nucleated RBC % Seg Neutrophils # Seg Neutrophils # Man Monocytes # (Manual) PT INR Activated Clotting Time POC ABG pH 7.460 H POC ABG pCO2 30.8 L POC ABG pO2 129 H Sodium Potassium Chloride Carbon Dioxide 21 L BUN 25 H Creatinine 0.4 L Glucose 123 H POC Glucose Calcium 8.3 L Magnesium Direct Bilirubin AST ALT Alkaline Phosphatase Total Creatine Kinase CK-MB (CK-2) CK-MB (CK-2) Rel Index Troponin T C-Reactive Protein Total Protein Albumin Triglycerides Ur Specific [place] Urine WBC (Auto) 04/18/17 04/18/17 04/19/17 17:10 23:40 04:36 WBC RBC 3.21 L Hgb 10.2 L Hct 30.4 L MCV 95 H MCH Plt Count 131 L Lymph % (Auto) 12.1 L Eos % (Auto) 4.7 H Baso % (Auto) 2.4 H Lymph # 0.9 L Baso # 0.2 H Seg Neutrophils % 75.0 H Lymphocytes % (Manual) Monocytes % (Manual) Nucleated RBC % Seg Neutrophils # Seg Neutrophils # Man Monocytes # (Manual) PT INR Activated Clotting Time POC ABG pH POC ABG pCO2 POC ABG pO2 Sodium Potassium Chloride Carbon Dioxide BUN Creatinine Glucose POC Glucose 135 H 157 H Calcium Magnesium Direct Bilirubin AST ALT Alkaline Phosphatase Total Creatine Kinase CK-MB (CK-2) CK-MB (CK-2) Rel Index Troponin T C-Reactive Protein Total Protein Albumin Triglycerides Ur Specific [place] Urine WBC (Auto) 04/19/17 04/19/17 04/19/17 04:36 05:12 06:50 WBC RBC Hgb Hct MCV MCH Plt Count Lymph % (Auto) Eos % (Auto) Baso % (Auto) Lymph # Baso # Seg Neutrophils % Lymphocytes % (Manual) Monocytes % (Manual) Nucleated RBC % Seg Neutrophils # Seg Neutrophils # Man Monocytes # (Manual) PT INR Activated Clotting Time POC ABG pH 7.516 H POC ABG pCO2 28.0 L POC ABG pO2 Sodium Potassium Chloride Carbon Dioxide 21 L BUN 23 H Creatinine 0.2 L Glucose 137 H POC Glucose 131 H Calcium 7.9 L Magnesium Direct Bilirubin AST ALT Alkaline Phosphatase Total Creatine Kinase CK-MB (CK-2) CK-MB (CK-2) Rel Index Troponin T C-Reactive Protein Total Protein Albumin Triglycerides Ur Specific [place] Urine WBC (Auto) 04/19/17 04/19/17 04/20/17 12:36 17:42 00:12 WBC RBC Hgb Hct MCV MCH Plt Count Lymph % (Auto) Eos % (Auto) Baso % (Auto) Lymph # Baso # Seg Neutrophils % Lymphocytes % (Manual) Monocytes % (Manual) Nucleated RBC % Seg Neutrophils # Seg Neutrophils # Man Monocytes # (Manual) PT INR Activated Clotting Time POC ABG pH POC ABG pCO2 POC ABG pO2 Sodium Potassium Chloride Carbon Dioxide BUN Creatinine Glucose POC Glucose 128 H 140 H 132 H Calcium Magnesium Direct Bilirubin AST ALT Alkaline Phosphatase Total Creatine Kinase CK-MB (CK-2) CK-MB (CK-2) Rel Index Troponin T C-Reactive Protein Total Protein Albumin Triglycerides Ur Specific [place] Urine WBC (Auto) 04/20/17 04/20/17 04/20/17 03:35 03:35 05:10 WBC RBC 3.34 L Hgb 10.4 L Hct 31.6 L MCV 95 H MCH Plt Count Lymph % (Auto) 12.9 L Eos % (Auto) Baso % (Auto) Lymph # Baso # Seg Neutrophils % 77.3 H Lymphocytes % (Manual) Monocytes % (Manual) Nucleated RBC % Seg Neutrophils # Seg Neutrophils # Man Monocytes # (Manual) PT INR Activated Clotting Time POC ABG pH POC ABG pCO2 POC ABG pO2 Sodium Potassium Chloride Carbon Dioxide BUN Creatinine 0.3 L Glucose 155 H POC Glucose 135 H Calcium 7.8 L Magnesium Direct Bilirubin AST ALT Alkaline Phosphatase Total Creatine Kinase CK-MB (CK-2) CK-MB (CK-2) Rel Index Troponin T C-Reactive Protein Total Protein Albumin Triglycerides Ur Specific [place] Urine WBC (Auto) 04/20/17 04/20/1704/21/18 12:49 18:21 00:05 WBC RBC Hgb Hct MCV MCH Plt Count Lymph % (Auto) Eos % (Auto) Baso % (Auto) Lymph # Baso # Seg Neutrophils % Lymphocytes % (Manual) Monocytes % (Manual) Nucleated RBC % Seg Neutrophils # Seg Neutrophils # Man Monocytes # (Manual) PT INR Activated Clotting Time POC ABG pH POC ABG pCO2 POC ABG pO2 Sodium Potassium Chloride Carbon Dioxide BUN Creatinine Glucose POC Glucose 155 H 165 H 141 H Calcium Magnesium Direct Bilirubin AST ALT Alkaline Phosphatase Total Creatine Kinase CK-MB (CK-2) CK-MB (CK-2) Rel Index Troponin T C-Reactive Protein Total Protein Albumin Triglycerides Ur Specific [place] Urine WBC (Auto) 04/21/17 04/21/17 04/21/17 06:00 12:11 17:04 WBC RBC Hgb Hct MCV MCH Plt Count Lymph % (Auto) Eos % (Auto) Baso % (Auto) Lymph # Baso # Seg Neutrophils % Lymphocytes % (Manual) Monocytes % (Manual) Nucleated RBC % Seg Neutrophils # Seg Neutrophils # Man Monocytes # (Manual) PT INR Activated Clotting Time POC ABG pH POC ABG pCO2 POC ABG pO2 Sodium Potassium Chloride Carbon Dioxide BUN Creatinine Glucose POC Glucose 152 H 165 H 156 H Calcium Magnesium Direct Bilirubin AST ALT Alkaline Phosphatase Total Creatine Kinase CK-MB (CK-2) CK-MB (CK-2) Rel Index Troponin T C-Reactive Protein Total Protein Albumin Triglycerides Ur Specific [place] Urine WBC (Auto) 04/21/17 04/21/17 04/22/17 22:00 23:59 05:49 WBC RBC Hgb Hct MCV MCH Plt Count Lymph % (Auto) Eos % (Auto) Baso % (Auto) Lymph # Baso # Seg Neutrophils % Lymphocytes % (Manual) Monocytes % (Manual) Nucleated RBC % Seg Neutrophils # Seg Neutrophils # Man Monocytes # (Manual) PT INR Activated Clotting Time POC ABG pH POC ABG pCO2 POC ABG pO2 Sodium Potassium Chloride Carbon Dioxide BUN Creatinine Glucose POC Glucose 166 H 173 H Calcium Magnesium Direct Bilirubin AST ALT Alkaline Phosphatase Total Creatine Kinase CK-MB (CK-2) CK-MB (CK-2) Rel Index Troponin T C-Reactive Protein Total Protein Albumin Triglycerides Ur Specific [place] Urine WBC (Auto) 10.0 H 04/22/17 04/22/17 04/23/17 11:11 18:04 00:37 WBC RBC Hgb Hct MCV MCH Plt Count Lymph % (Auto) Eos % (Auto) Baso % (Auto) Lymph # Baso # Seg Neutrophils % Lymphocytes % (Manual) Monocytes % (Manual) Nucleated RBC % Seg Neutrophils # Seg Neutrophils # Man Monocytes # (Manual) PT INR Activated Clotting Time POC ABG pH POC ABG pCO2 POC ABG pO2 Sodium Potassium Chloride Carbon Dioxide BUN Creatinine Glucose POC Glucose 172 H 140 H 135 H Calcium Magnesium Direct Bilirubin AST ALT Alkaline Phosphatase Total Creatine Kinase CK-MB (CK-2) CK-MB (CK-2) Rel Index Troponin T C-Reactive Protein Total Protein Albumin Triglycerides Ur Specific [place] Urine WBC (Auto) 04/23/17 04/23/17 04/23/17 05:33 06:20 11:10 WBC RBC 3.19 L Hgb 9.9 L Hct 30.0 L MCV MCH Plt Count Lymph % (Auto) 8.0 L Eos % (Auto) Baso % (Auto) Lymph # 0.8 L Baso # Seg Neutrophils % 84.5 H Lymphocytes % (Manual) Monocytes % (Manual) Nucleated RBC % Seg Neutrophils # 8.2 H Seg Neutrophils # Man Monocytes # (Manual) PT INR Activated Clotting Time POC ABG pH POC ABG pCO2 POC ABG pO2 Sodium Potassium Chloride Carbon Dioxide BUN Creatinine Glucose POC Glucose 134 H 134 H Calcium Magnesium Direct Bilirubin AST ALT Alkaline Phosphatase Total Creatine Kinase CK-MB (CK-2) CK-MB (CK-2) Rel Index Troponin T C-Reactive Protein Total Protein Albumin Triglycerides Ur Specific [place] Urine WBC (Auto) 04/23/17 04/24/17 04/24/17 17:26 00:53 06:46 WBC RBC Hgb Hct MCV MCH Plt Count Lymph % (Auto) Eos % (Auto) Baso % (Auto) Lymph # Baso # Seg Neutrophils % Lymphocytes % (Manual) Monocytes % (Manual) Nucleated RBC % Seg Neutrophils # Seg Neutrophils # Man Monocytes # (Manual) PT INR Activated Clotting Time POC ABG pH POC ABG pCO2 POC ABG pO2 Sodium Potassium Chloride Carbon Dioxide BUN Creatinine Glucose POC Glucose 164 H 146 H 125 H Calcium Magnesium Direct Bilirubin AST ALT Alkaline Phosphatase Total Creatine Kinase CK-MB (CK-2) CK-MB (CK-2) Rel Index Troponin T C-Reactive Protein Total Protein Albumin Triglycerides Ur Specific [place] Urine WBC (Auto) 04/24/17 04/24/1704/24/18 11:55 17:50 23:36 WBC RBC Hgb Hct MCV MCH Plt Count Lymph % (Auto) Eos % (Auto) Baso % (Auto) Lymph # Baso # Seg Neutrophils % Lymphocytes % (Manual) Monocytes % (Manual) Nucleated RBC % Seg Neutrophils # Seg Neutrophils # Man Monocytes # (Manual) PT INR Activated Clotting Time POC ABG pH POC ABG pCO2 POC ABG pO2 Sodium Potassium Chloride Carbon Dioxide BUN Creatinine Glucose POC Glucose 156 H 146 H 131 H Calcium Magnesium Direct Bilirubin AST ALT Alkaline Phosphatase Total Creatine Kinase CK-MB (CK-2) CK-MB (CK-2) Rel Index Troponin T C-Reactive Protein Total Protein Albumin Triglycerides Ur Specific [place] Urine WBC (Auto) 04/25/17 04/25/17 04/25/17 04:51 05:16 12:29 WBC RBC Hgb Hct MCV MCH Plt Count Lymph % (Auto) Eos % (Auto) Baso % (Auto) Lymph # Baso # Seg Neutrophils % Lymphocytes % (Manual) Monocytes % (Manual) Nucleated RBC % Seg Neutrophils # Seg Neutrophils # Man Monocytes # (Manual) PT INR Activated Clotting Time POC ABG pH POC ABG pCO2 POC ABG pO2 Sodium Potassium Chloride Carbon Dioxide BUN Creatinine Glucose POC Glucose 139 H 132 H Calcium Magnesium Direct Bilirubin AST 105 H ALT 204 H Alkaline Phosphatase 189 H Total Creatine Kinase CK-MB (CK-2) CK-MB (CK-2) Rel Index Troponin T C-Reactive Protein Total Protein Albumin 2.4 L Triglycerides Ur Specific [place] Urine WBC (Auto) 04/25/17 04/25/17 04/26/17 17:23 23:32 05:24 WBC RBC Hgb Hct MCV MCH Plt Count Lymph % (Auto) Eos % (Auto) Baso % (Auto) Lymph # Baso # Seg Neutrophils % Lymphocytes % (Manual) Monocytes % (Manual) Nucleated RBC % Seg Neutrophils # Seg Neutrophils # Man Monocytes # (Manual) PT INR Activated Clotting Time POC ABG pH POC ABG pCO2 POC ABG pO2 Sodium Potassium Chloride Carbon Dioxide BUN Creatinine Glucose POC Glucose 133 H 128 H 132 H Calcium Magnesium Direct Bilirubin AST ALT Alkaline Phosphatase Total Creatine Kinase CK-MB (CK-2) CK-MB (CK-2) Rel Index Troponin T C-Reactive Protein Total Protein Albumin Triglycerides Ur Specific [place] Urine WBC (Auto)
[2017-04-26] MEDS: HEPARIN SUB-Q SCH ×2 (09:43→22:06)
[2017-04-26] MEDS: PLAVIX PO SCH (09:44)
[2017-04-26] MEDS: COLACE FEEDTUBE SCH ×2 (09:44→22:06)
[2017-04-26] MEDS: ZESTRIL PO SCH (09:44)
[2017-04-26] MEDS: PROTONIX FEEDTUBE SCH (09:44)
[2017-04-26] MEDS: ASPIRIN PO SCH (09:44)
--- NOTE | 2017-04-26 11:29 | Progress Note ---
Assessment and Plan Assessment and plan: Patient with V. fib arrest, anoxic encephalopathy, respiratory failure and vent dependent, status post trach and PEG, vegetative state, MRSA pneumonia Sepsis, poor prognosis, full CODE STATUS --Acute hypoxic respiratory failure; s/p trach and PEG; continue vent support --s/p cardiac arrest ; anoxic encephalopathy'vegetative state, supportive care --Acute anterior STEMI; status post PCI, cardiology following --MRSA pneumonia/aspiration pneumonia, contact isolation patient received full treatment with Zyvox --Hypertension; continue current antihypertensives and when necessary medications. --Febrile illness; aspiration pneumonia; sepsis; on antibiotics ID following --Cardiogenic shock; requiring pressors, closely monitor --s/p trach and PEG, continue PEG feeds --Electrolyte imbalance; replenishment protocol --DVT prophylaxis; Lovenox --Full CODE STATUS Poor prognosis, family aware Recommend hospice/LTAC placement/SNF placement Patient has multiple social issues, no pain or source Plan of care discussed with the patient's nurse and case management. critical care time 32 minutes The high probability of a clinically significant, sudden or life threatening deterioration of the [Pulmonary, cardiac, neurological, renal] system(s) required my full and direct attention, intervention and personal management. The aggregate critical care time was [32] minutes. This time is in addition to time spent performing reported procedures but includes the following: [x] Data Review and interpretation [x] Patient assessment and monitoring of vital signs [x] Documentation [x] Medication orders and management History Interval history: Patient seen and evaluated, no change clinically Vital signs reviewed Status post tracheostomy and vent dependent Hospitalist Physical - Constitutional Vitals: Temp Pulse Resp BP Pulse Ox 98.9 F 112 H 30 H 97/58 92 04/26/17 08:00 04/26/17 11:00 04/26/17 11:00 04/26/17 11:00 04/26/17 11:00 General appearance: Present: no acute distress, well-nourished, other ( tracheostomy on ventilatory support) - EENT Eyes: Present: PERRL, EOM intact - Neck Neck: Present: supple, other (tracheostomy) - Respiratory Respiratory effort: normal Respiratory: bilateral: diminished, rhonchi, negative: rales, wheezing - Cardiovascular Rhythm: regular Heart Sounds: Present: S1 & S2 - Extremities Extremities: no ischemia, No edema - Abdominal General gastrointestinal: soft, non-tender, non-distended, normal bowel sounds, other (PEG tube in place) - Integumentary Integumentary: Present: clear, warm - Psychiatric Psychiatric: other (unresponsive) - Neurologic Neurologic: other (unresponsive) Results - Labs CBC & Chem 7: 04/23/17 05:33 04/20/17 03:35 Labs: Laboratory Last Values WBC 9.7 K/mm3 (4.5-11.0) 04/23/17 05:33 RBC 3.19 M/mm3 (3.65-5.03) L 04/23/17 05:33 Hgb 9.9 gm/dl (11.8-15.2) L 04/23/17 05:33 Hct 30.0 % (35.5-45.6) L 04/23/17 05:33 MCV 94 fl (84-94) 04/23/17 05:33 MCH 31 pg (28-32) 04/23/17 05:33 MCHC 33 % (32-34) 04/23/17 05:33 RDW 14.6 % (13.2-15.2) 04/23/17 05:33 Plt Count 181 K/mm3 (140-440) 04/23/17 05:33 Lymph % (Auto) 8.0 % (13.4-35.0) L 04/23/17 05:33 [place] % (Auto) 5.3 % (0.0-7.3) 04/23/17 05:33 Eos % (Auto) 1.9 % (0.0-4.3) 04/23/17 05:33 Baso % (Auto) 0.3 % (0.0-1.8) 04/23/17 05:33 Lymph # 0.8 K/mm3 (1.2-5.4) L 04/23/17 05:33 [place] # 0.5 K/mm3 (0.0-0.8) 04/23/17 05:33 Eos # 0.2 K/mm3 (0.0-0.4) 04/23/17 05:33 Baso # 0.0 K/mm3 (0.0-0.1) 04/23/17 05:33 Add Manual Diff Complete 03/30/17 03:50 Total Counted 100 03/30/17 03:50 Seg Neutrophils % 84.5 % (40.0-70.0) H 04/23/17 05:33 Seg Neuts % (Manual) 65.0 % (40.0-70.0) 03/30/17 03:50 Band Neutrophils % 17.0 % 03/30/17 03:50 Lymphocytes % (Manual) 7.0 % (13.4-35.0) L 03/30/17 03:50 Reactive Lymphs % (Man) 0 % 03/30/17 03:50 Monocytes % (Manual) 7.0 % (0.0-7.3) 03/30/17 03:50 Eosinophils % (Manual) 0 % (0.0-4.3) 03/30/17 03:50 Basophils % (Manual) 0 % (0.0-1.8) 03/30/17 03:50 Metamyelocytes % 4.0 % 03/30/17 03:50 Myelocytes % 0 % 03/30/17 03:50 Promyelocytes % 0 % 03/30/17 03:50 Blast Cells % 0 % 03/30/17 03:50 Nucleated RBC % Not Reportable 03/30/17 03:50 Seg Neutrophils # 8.2 K/mm3 (1.8-7.7) H 04/23/17 05:33 Seg Neutrophils # Man 12.7 K/mm3 (1.8-7.7) H 03/30/17 03:50 Band Neutrophils # 3.3 K/mm3 03/30/17 03:50 Lymphocytes # (Manual) 1.4 K/mm3 (1.2-5.4) 03/30/17 03:50 Abs React Lymphs (Man) 0.0 K/mm3 03/30/17 03:50 Monocytes # (Manual) 1.4 K/mm3 (0.0-0.8) H 03/30/17 03:50 Eosinophils # (Manual) 0.0 K/mm3 (0.0-0.4) 03/30/17 03:50 Basophils # (Manual) 0.0 K/mm3 (0.0-0.1) 03/30/17 03:50 Metamyelocytes # 0.8 K/mm3 03/30/17 03:50 Myelocytes # 0.0 K/mm3 03/30/17 03:50 Promyelocytes # 0.0 K/mm3 03/30/17 03:50 Blast Cells # 0.0 K/mm3 03/30/17 03:50 WBC Morphology Not Reportable 03/30/17 03:50 Hypersegmented Neuts Not Reportable 03/30/17 03:50 Hyposegmented Neuts Not Reportable 03/30/17 03:50 Hypogranular Neuts Not Reportable 03/30/17 03:50 Smudge Cells Not Reportable 03/30/17 03:50 Toxic Granulation Not Reportable 03/30/17 03:50 Toxic Vacuolation Not Reportable 03/30/17 03:50 Dohle Bodies Not Reportable 03/30/17 03:50 Pelger-Huet Anomaly Not Reportable 03/30/17 03:50 Sherry Rods Not Reportable 03/30/17 03:50 Platelet Estimate Appears normal 03/30/17 03:50 Clumped Platelets Not Reportable 03/30/17 03:50 Plt Clumps, EDTA Not Reportable 03/30/17 03:50 Large Platelets Not Reportable 03/30/17 03:50 Giant Platelets Not Reportable 03/30/17 03:50 Platelet Satelliting Not Reportable 03/30/17 03:50 Plt Morphology Comment Not Reportable 03/30/17 03:50 RBC Morphology Not Reportable 03/30/17 03:50 Dimorphic RBCs Not Reportable 03/30/17 03:50 Polychromasia Not Reportable 03/30/17 03:50 Hypochromasia Not Reportable 03/30/17 03:50 Poikilocytosis Not Reportable 03/30/17 03:50 Anisocytosis Few 03/30/17 03:50 Microcytosis Not Reportable 03/30/17 03:50 Macrocytosis Not Reportable 03/30/17 03:50 Spherocytes Not Reportable 03/30/17 03:50 Pappenheimer Bodies Not Reportable 03/30/17 03:50 Sickle Cells Not Reportable 03/30/17 03:50 Target Cells Not Reportable 03/30/17 03:50 Tear Drop Cells Not Reportable 03/30/17 03:50 Ovalocytes Not Reportable 03/30/17 03:50 Helmet Cells Not Reportable 03/30/17 03:50 Tamayo-Millry Bodies Not Reportable 03/30/17 03:50 [place] Rings Not Reportable 03/30/17 03:50 Nusrat Cells Not Reportable 03/30/17 03:50 Bite Cells Not Reportable 03/30/17 03:50 Crenated Cell Not Reportable 03/30/17 03:50 Elliptocytes Not Reportable 03/30/17 03:50 Acanthocytes (Spur) Not Reportable 03/30/17 03:50 Rouleaux Not Reportable 03/30/17 03:50 Hemoglobin C Crystals Not Reportable 03/30/17 03:50 Schistocytes Not Reportable 03/30/17 03:50 Malaria parasites Not Reportable 03/30/17 03:50 Jermaine Bodies Not Reportable 03/30/17 03:50 Hem Pathologist Commnt No 03/30/17 03:50 PT 14.9 Sec. (12.2-14.9) 04/10/17 04:16 INR 1.11 (0.87-1.13) 04/10/17 04:16 APTT 27.8 Sec. (24.2-36.6) 04/10/17 04:16 Activated Clotting Time 92 (74-137) 03/29/17 17:47 POC ABG pH 7.516 (7.35-7.45) H 04/19/17 06:50 POC ABG pCO2 28.0 (35-45) L 04/19/17 06:50 POC ABG pO2 81 (80-105) 04/19/17 06:50 POC ABG HCO3 22.7 04/19/17 06:50 POC ABG Total CO2 24 04/19/17 06:50 POC ABG O2 Sat 97 04/19/17 06:50 POC ABG Base Excess 0 04/19/17 06:50 FiO2 30 % 04/19/17 06:50 Sodium 140 mmol/L (137-145) 04/20/17 03:35 Potassium 3.7 mmol/L (3.6-5.0) 04/20/17 03:35 Chloride 103.3 mmol/L (98-107) 04/20/17 03:35 Carbon Dioxide 23 mmol/L (22-30) 04/20/17 03:35 Anion Gap 17 mmol/L 04/20/17 03:35 BUN 20 mg/dL (9-20) 04/20/17 03:35 Creatinine 0.3 mg/dL (0.8-1.5) L 04/20/17 03:35 Estimated GFR > 60 ml/min 04/20/17 03:35 BUN/Creatinine Ratio 67 % 04/20/17 03:35 Glucose 155 mg/dL (75-100) H 04/20/17 03:35 POC Glucose 132 (70-105) H 04/26/17 05:24 Calcium 7.8 mg/dL (8.4-10.2) L 04/20/17 03:35 Phosphorus 3.50 mg/dL (2.5-4.5) 04/13/17 04:45 Magnesium 2.10 mg/dL (1.7-2.3) 04/23/17 05:33 Total Bilirubin 0.50 mg/dL (0.1-1.2) 04/25/17 04:51 Direct Bilirubin < 0.2 mg/dL (0-0.2) 04/25/17 04:51 Indirect Bilirubin 0.3 mg/dL 04/25/17 04:51 AST 105 units/L (5-40) H 04/25/17 04:51 ALT 204 units/L (7-56) H 04/25/17 04:51 Alkaline Phosphatase 189 units/L (35-129) H 04/25/17 04:51 Total Creatine Kinase 1404 units/L (55-170) H 04/12/17 21:36 CK-MB (CK-2) 8.0 ng/mL (0.0-4.0) H 04/12/17 21:36 CK-MB (CK-2) Rel Index 0.5 (0-4) 04/12/17 21:36 Troponin T 0.767 ng/mL (0.00-0.029) H* 04/12/17 21:36 C-Reactive Protein 21.80 mg/dL (0.00-1.30) H 03/30/17 16:04 Total Protein 6.4 g/dL (6.3-8.2) 04/25/17 04:51 Albumin 2.4 g/dL (3.9-5) L 04/25/17 04:51 Albumin/Globulin Ratio 0.6 % 04/25/17 04:51 Triglycerides 151 mg/dL (2-149) H 04/01/17 04:29 Cholesterol 164 mg/dL (50-199) 03/29/17 19:52 LDL Cholesterol Direct 81 mg/dL (50-130) 03/29/17 19:52 HDL Cholesterol 44 mg/dL (40-59) 03/29/17 19:52 Cholesterol/HDL Ratio 3.72 % 03/29/17 19:52 Urine Color [place] (Yellow) 04/21/17 22:00 Urine Turbidity Clear (Clear) 04/21/17 22:00 Urine pH 5.0 (5.0-7.0) 04/21/17 22:00 Ur Specific [place] 1.029 (1.003-1.030) 04/21/17 22:00 Urine Protein 30 mg/dl mg/dL (Negative) 04/21/17 22:00 Urine Glucose (UA) Neg mg/dL (Negative) 04/21/17 22:00 Urine Ketones Neg mg/dL (Negative) 04/21/17 22:00 Urine Blood Mod (Negative) 04/21/17 22:00 Urine Nitrite Neg (Negative) 04/21/17 22:00 Urine Bilirubin Neg (Negative) 04/21/17 22:00 Urine Urobilinogen 4.0 mg/dL (<2.0) 04/21/17 22:00 Ur Leukocyte Esterase Neg (Negative) 04/21/17 22:00 Urine WBC (Auto) 10.0 /HPF (0.0-6.0) H 04/21/17 22:00 Urine RBC (Auto) 44.0 /HPF (0.0-6.0) 04/21/17 22:00 U Epithel Cells (Auto) < 1.0 /HPF (0-13.0) 04/21/17 22:00 Amorphous Crystals 1+ 03/30/17 09:45 Urine Mucus 3+ /HPF 04/21/17 22:00 Urine Opiates Screen Presumptive negative 03/30/17 09:45 Urine Methadone Screen Presumptive negative 03/30/17 09:45 Ur Barbiturates Screen Presumptive negative 03/30/17 09:45 Ur Phencyclidine Scrn Presumptive negative 03/30/17 09:45 Ur Amphetamines Screen Presumptive positive 03/30/17 09:45 U Benzodiazepines Scrn Presumptive positive 03/30/17 09:45 Urine Cocaine Screen Presumptive negative 03/30/17 09:45 U Marijuana (THC) Screen Presumptive negative 03/30/17 09:45 Drugs of Abuse Note Disclamer 03/30/17 09:45 Blood Type O POSITIVE 03/29/17 11:35 Antibody Screen Negative 03/29/17 11:35
[2017-04-26] MEDS: TRANSDERM-SCOP TD SCH (15:59)
[2017-04-27] MEDS: LOPRESSOR PO SCH ×4 (01:09→18:03)
[2017-04-27] MEDS: NOVOLOG SUB-Q SCH ×4 (06:20→18:16)
[2017-04-27] MEDS: MAXIPIME 2 GM in NACL 0.9% 20 ML IV SCH ×3 (06:21→21:45)
[2017-04-27 06:36] LABS: Basophils % (Auto) 0.3 % (0.0-1.8); Eosinophils # (Auto) 0.1 K/mm3 (0.0-0.4); Eosinophils % (Auto) 1.7 % (0.0-4.3); Hematocrit 29.9 % (35.5-45.6); Lymphocytes # (Auto) 1.3 K/mm3 (1.2-5.4); Lymphocytes % (Auto) 14.9 % (13.4-35.0); Mean Corpuscular HGB Conc 33 % (32-34); Mean Corpuscular Hemoglobin 31 pg (28-32); Mean Corpuscular Volume 93 fl (84-94); Monocytes # (Auto) 0.6 K/mm3 (0.0-0.8); Monocytes % (Auto) 6.5 % (0.0-7.3); Platelet Count 260 K/mm3 (140-440); Red Blood Count 3.22 M/mm3 (3.65-5.03); Red Cell Distribution Width 14.8 % (13.2-15.2)
[2017-04-27 06:54] LABS: BUN/Creatinine Ratio 80; Blood Urea Nitrogen 16 mg/dL (9-20); Calcium 8.5 mg/dL (8.4-10.2); Hemolysis Index 11
[2017-04-27 06:56] LABS: Alanine Aminotransferase 137 units/L (7-56); Albumin 2.6 g/dL (3.9-5); Bilirubin,Direct < 0.2 mg/dL (0-0.2)
--- NOTE | 2017-04-27 08:18 | Progress Note ---
Assessment and Plan Assessment and plan: Patient with V. fib arrest, anoxic encephalopathy, respiratory failure and vent dependent, status post trach and PEG, vegetative state, MRSA pneumonia Sepsis, poor prognosis, full CODE STATUS -- s/p trach and PEG; continue vent support, admitted with acute hypoxic hypercapnic respiratory failure --s/p cardiac arrest ; anoxic encephalopathy'vegetative state, supportive care --Acute anterior STEMI; status post PCI, cardiology following --MRSA pneumonia/aspiration pneumonia, contact isolation patient received full treatment with Zyvox --Hypertension; BP in the lower range. --Febrile illness; aspiration pneumonia; sepsis; on antibiotics ID following --Cardiogenic shock; off pressors, closely monitor --s/p trach and PEG, continue PEG feeds --Severe Protein calorie malnutrition: Peg feeds and nutrition suppliments --DVT prophylaxis; Lovenox --Full CODE STATUS Poor prognosis, family aware Rec hospice/LTAC/SNF placement Patient has multiple social issues, no payor source Plan of care discussed with the patient's nurse and case management. critical care time 31 minutes The high probability of a clinically significant, sudden or life threatening deterioration of the [Pulmonary, cardiac, neurological, renal] system(s) required my full and direct attention, intervention and personal management. The aggregate critical care time was [31] minutes. This time is in addition to time spent performing reported procedures but includes the following: [x] Data Review and interpretation [x] Patient assessment and monitoring of vital signs [x] Documentation [x] Medication orders and management History Interval history: Patient seen and examined medical records reviewed Clinically no change No new events reported by the nursing staff Vitals Stable Hospitalist Physical - Constitutional Vitals: Temp Pulse Resp BP Pulse Ox 98.7 F 99 H 28 H 92/49 98 04/27/17 08:00 04/27/17 06:20 04/27/17 04:00 04/27/17 06:20 04/27/17 05:05 General appearance: Present: no acute distress, well-nourished, other ( tracheostomy on ventilatory support) - EENT Eyes: Present: PERRL, EOM intact - Neck Neck: Present: supple, normal ROM - Respiratory Respiratory effort: normal Respiratory: bilateral: diminished, rhonchi - Cardiovascular Rhythm: regular Heart Sounds: Present: S1 & S2 - Extremities Extremities: no ischemia Extremity abnormal: edema - Abdominal General gastrointestinal: soft, non-tender, non-distended, other (PEG tube in place) - Integumentary Integumentary: Present: clear, warm - Psychiatric Psychiatric: other (noncommunicative) - Neurologic Neurologic: other (unresponsive) Results - Labs CBC & Chem 7: 04/27/17 05:40 04/27/17 05:40 Labs: Laboratory Last Values WBC 8.5 K/mm3 (4.5-11.0) 04/27/17 05:40 RBC 3.22 M/mm3 (3.65-5.03) L 04/27/17 05:40 Hgb 10.0 gm/dl (11.8-15.2) L 04/27/17 05:40 Hct 29.9 % (35.5-45.6) L 04/27/17 05:40 MCV 93 fl (84-94) 04/27/17 05:40 MCH 31 pg (28-32) 04/27/17 05:40 MCHC 33 % (32-34) 04/27/17 05:40 RDW 14.8 % (13.2-15.2) 04/27/17 05:40 Plt Count 260 K/mm3 (140-440) 04/27/17 05:40 Lymph % (Auto) 14.9 % (13.4-35.0) 04/27/17 05:40 [place] % (Auto) 6.5 % (0.0-7.3) 04/27/17 05:40 Eos % (Auto) 1.7 % (0.0-4.3) 04/27/17 05:40 Baso % (Auto) 0.3 % (0.0-1.8) 04/27/17 05:40 Lymph # 1.3 K/mm3 (1.2-5.4) 04/27/17 05:40 [place] # 0.6 K/mm3 (0.0-0.8) 04/27/17 05:40 Eos # 0.1 K/mm3 (0.0-0.4) 04/27/17 05:40 Baso # 0.0 K/mm3 (0.0-0.1) 04/27/17 05:40 Add Manual Diff Complete 03/30/17 03:50 Total Counted 100 03/30/17 03:50 Seg Neutrophils % 76.6 % (40.0-70.0) H 04/27/17 05:40 Seg Neuts % (Manual) 65.0 % (40.0-70.0) 03/30/17 03:50 Band Neutrophils % 17.0 % 03/30/17 03:50 Lymphocytes % (Manual) 7.0 % (13.4-35.0) L 03/30/17 03:50 Reactive Lymphs % (Man) 0 % 03/30/17 03:50 Monocytes % (Manual) 7.0 % (0.0-7.3) 03/30/17 03:50 Eosinophils % (Manual) 0 % (0.0-4.3) 03/30/17 03:50 Basophils % (Manual) 0 % (0.0-1.8) 03/30/17 03:50 Metamyelocytes % 4.0 % 03/30/17 03:50 Myelocytes % 0 % 03/30/17 03:50 Promyelocytes % 0 % 03/30/17 03:50 Blast Cells % 0 % 03/30/17 03:50 Nucleated RBC % Not Reportable 03/30/17 03:50 Seg Neutrophils # 6.5 K/mm3 (1.8-7.7) 04/27/17 05:40 Seg Neutrophils # Man 12.7 K/mm3 (1.8-7.7) H 03/30/17 03:50 Band Neutrophils # 3.3 K/mm3 03/30/17 03:50 Lymphocytes # (Manual) 1.4 K/mm3 (1.2-5.4) 03/30/17 03:50 Abs React Lymphs (Man) 0.0 K/mm3 03/30/17 03:50 Monocytes # (Manual) 1.4 K/mm3 (0.0-0.8) H 03/30/17 03:50 Eosinophils # (Manual) 0.0 K/mm3 (0.0-0.4) 03/30/17 03:50 Basophils # (Manual) 0.0 K/mm3 (0.0-0.1) 03/30/17 03:50 Metamyelocytes # 0.8 K/mm3 03/30/17 03:50 Myelocytes # 0.0 K/mm3 03/30/17 03:50 Promyelocytes # 0.0 K/mm3 03/30/17 03:50 Blast Cells # 0.0 K/mm3 03/30/17 03:50 WBC Morphology Not Reportable 03/30/17 03:50 Hypersegmented Neuts Not Reportable 03/30/17 03:50 Hyposegmented Neuts Not Reportable 03/30/17 03:50 Hypogranular Neuts Not Reportable 03/30/17 03:50 Smudge Cells Not Reportable 03/30/17 03:50 Toxic Granulation Not Reportable 03/30/17 03:50 Toxic Vacuolation Not Reportable 03/30/17 03:50 Dohle Bodies Not Reportable 03/30/17 03:50 Pelger-Huet Anomaly Not Reportable 03/30/17 03:50 Sherry Rods Not Reportable 03/30/17 03:50 Platelet Estimate Appears normal 03/30/17 03:50 Clumped Platelets Not Reportable 03/30/17 03:50 Plt Clumps, EDTA Not Reportable 03/30/17 03:50 Large Platelets Not Reportable 03/30/17 03:50 Giant Platelets Not Reportable 03/30/17 03:50 Platelet Satelliting Not Reportable 03/30/17 03:50 Plt Morphology Comment Not Reportable 03/30/17 03:50 RBC Morphology Not Reportable 03/30/17 03:50 Dimorphic RBCs Not Reportable 03/30/17 03:50 Polychromasia Not Reportable 03/30/17 03:50 Hypochromasia Not Reportable 03/30/17 03:50 Poikilocytosis Not Reportable 03/30/17 03:50 Anisocytosis Few 03/30/17 03:50 Microcytosis Not Reportable 03/30/17 03:50 Macrocytosis Not Reportable 03/30/17 03:50 Spherocytes Not Reportable 03/30/17 03:50 Pappenheimer Bodies Not Reportable 03/30/17 03:50 Sickle Cells Not Reportable 03/30/17 03:50 Target Cells Not Reportable 03/30/17 03:50 Tear Drop Cells Not Reportable 03/30/17 03:50 Ovalocytes Not Reportable 03/30/17 03:50 Helmet Cells Not Reportable 03/30/17 03:50 Tamayo-Tolstoy Bodies Not Reportable 03/30/17 03:50 [place] Rings Not Reportable 03/30/17 03:50 [place] Cells Not Reportable 03/30/17 03:50 Bite Cells Not Reportable 03/30/17 03:50 Crenated Cell Not Reportable 03/30/17 03:50 Elliptocytes Not Reportable 03/30/17 03:50 Acanthocytes (Spur) Not Reportable 03/30/17 03:50 Rouleaux Not Reportable 03/30/17 03:50 Hemoglobin C Crystals Not Reportable 03/30/17 03:50 Schistocytes Not Reportable 03/30/17 03:50 Malaria parasites Not Reportable 03/30/17 03:50 Jermaine Bodies Not Reportable 03/30/17 03:50 Hem Pathologist Commnt No 03/30/17 03:50 PT 14.9 Sec. (12.2-14.9) 04/10/17 04:16 INR 1.11 (0.87-1.13) 04/10/17 04:16 APTT 27.8 Sec. (24.2-36.6) 04/10/17 04:16 Activated Clotting Time 92 (74-137) 03/29/17 17:47 POC ABG pH 7.516 (7.35-7.45) H 04/19/17 06:50 POC ABG pCO2 28.0 (35-45) L 04/19/17 06:50 POC ABG pO2 81 (80-105) 04/19/17 06:50 POC ABG HCO3 22.7 04/19/17 06:50 POC ABG Total CO2 24 04/19/17 06:50 POC ABG O2 Sat 97 04/19/17 06:50 POC ABG Base Excess 0 04/19/17 06:50 FiO2 30 % 04/19/17 06:50 Sodium 137 mmol/L (137-145) 04/27/17 05:40 Potassium 3.7 mmol/L (3.6-5.0) 04/27/17 05:40 Chloride 100.2 mmol/L (98-107) 04/27/17 05:40 Carbon Dioxide 25 mmol/L (22-30) 04/27/17 05:40 Anion Gap 16 mmol/L 04/27/17 05:40 BUN 16 mg/dL (9-20) 04/27/17 05:40 Creatinine 0.2 mg/dL (0.8-1.5) L 04/27/17 05:40 Estimated GFR > 60 ml/min 04/27/17 05:40 BUN/Creatinine Ratio 80 % 04/27/17 05:40 Glucose 139 mg/dL (75-100) H 04/27/17 05:40 POC Glucose 130 (70-105) H 04/27/17 06:10 Calcium 8.5 mg/dL (8.4-10.2) 04/27/17 05:40 Phosphorus 3.50 mg/dL (2.5-4.5) 04/13/17 04:45 Magnesium 2.10 mg/dL (1.7-2.3) 04/23/17 05:33 Total Bilirubin 0.50 mg/dL (0.1-1.2) 04/27/17 05:40 Direct Bilirubin < 0.2 mg/dL (0-0.2) 04/27/17 05:40 Indirect Bilirubin 0.3 mg/dL 04/25/17 04:51 AST 66 units/L (5-40) H 04/27/17 05:40 ALT 137 units/L (7-56) H 04/27/17 05:40 Alkaline Phosphatase 169 units/L (35-129) H 04/27/17 05:40 Total Creatine Kinase 1404 units/L (55-170) H 04/12/17 21:36 CK-MB (CK-2) 8.0 ng/mL (0.0-4.0) H 04/12/17 21:36 CK-MB (CK-2) Rel Index 0.5 (0-4) 04/12/17 21:36 Troponin T 0.767 ng/mL (0.00-0.029) H* 04/12/17 21:36 C-Reactive Protein 21.80 mg/dL (0.00-1.30) H 03/30/17 16:04 Total Protein 6.2 g/dL (6.3-8.2) L 04/27/17 05:40 Albumin 2.6 g/dL (3.9-5) L 04/27/17 05:40 Albumin/Globulin Ratio 0.7 % 04/27/17 05:40 Triglycerides 151 mg/dL (2-149) H 04/01/17 04:29 Cholesterol 164 mg/dL (50-199) 03/29/17 19:52 LDL Cholesterol Direct 81 mg/dL (50-130) 03/29/17 19:52 HDL Cholesterol 44 mg/dL (40-59) 03/29/17 19:52 Cholesterol/HDL Ratio 3.72 % 03/29/17 19:52 Urine Color [place] (Yellow) 04/21/17 22:00 Urine Turbidity Clear (Clear) 04/21/17 22:00 Urine pH 5.0 (5.0-7.0) 04/21/17 22:00 Ur Specific [place] 1.029 (1.003-1.030) 04/21/17 22:00 Urine Protein 30 mg/dl mg/dL (Negative) 04/21/17 22:00 Urine Glucose (UA) Neg mg/dL (Negative) 04/21/17 22:00 Urine Ketones Neg mg/dL (Negative) 04/21/17 22:00 Urine Blood Mod (Negative) 04/21/17 22:00 Urine Nitrite Neg (Negative) 04/21/17 22:00 Urine Bilirubin Neg (Negative) 04/21/17 22:00 Urine Urobilinogen 4.0 mg/dL (<2.0) 04/21/17 22:00 Ur Leukocyte Esterase Neg (Negative) 04/21/17 22:00 Urine WBC (Auto) 10.0 /HPF (0.0-6.0) H 04/21/17 22:00 Urine RBC (Auto) 44.0 /HPF (0.0-6.0) 04/21/17 22:00 U Epithel Cells (Auto) < 1.0 /HPF (0-13.0) 04/21/17 22:00 Amorphous Crystals 1+ 03/30/17 09:45 Urine Mucus 3+ /HPF 04/21/17 22:00 Urine Opiates Screen Presumptive negative 03/30/17 09:45 Urine Methadone Screen Presumptive negative 03/30/17 09:45 Ur Barbiturates Screen Presumptive negative 03/30/17 09:45 Ur Phencyclidine Scrn Presumptive negative 03/30/17 09:45 Ur Amphetamines Screen Presumptive positive 03/30/17 09:45 U Benzodiazepines Scrn Presumptive positive 03/30/17 09:45 Urine Cocaine Screen Presumptive negative 03/30/17 09:45 U Marijuana (THC) Screen Presumptive negative 03/30/17 09:45 Drugs of Abuse Note Disclamer 03/30/17 09:45 Miscellaneous Test Flexitest 1 H 04/25/17 07:07 Blood Type O POSITIVE 03/29/17 11:35 Antibody Screen Negative 03/29/17 11:35
--- NOTE | 2017-04-27 09:56 | Progress Note ---
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 LFT's ok, continue statin. Not tolerating PSV, will check CXR. Overall prognosis is guarded to poor. 1. Continue PSV trials as tolerated. 2. As per my partner, goal would be T-piece 17/10. Will need trach indefinitely given mental state 3. Continue vent support and management 4. Continue all other cardiac meds 5. Overall prognosis still remains poor given amount of downtime during arrest. CCT 31 minutes. Subjective Date of service: 04/27/17 Principal diagnosis: septic shock Interval history: No acute events overnight. No family at bedside. Mental status is unchanged. Does not appear to have tolerated PSV at all yesterday. RT placed on this am and RR in the 40's currently. Objective Vital Signs - 12hr 04/26/17 04/26/17 04/27/17 22:00 23:00 00:00 Temperature 99.3 F Pulse Rate Pulse Rate [ 93 H 103 H 100 H None] Pulse Rate [ 97 H Right Dorsalis Pedis] Respiratory 26 H 35 H 33 H Rate Blood Pressure 91/52 86/55 94/54 O2 Sat by Pulse 98 89 99 Oximetry O2 Sat by Pulse Oximetry [ Assessment] 04/27/17 04/27/17 04/27/17 00:35 01:00 01:09 Temperature Pulse Rate 101 H 97 H Pulse Rate [ 98 H None] Pulse Rate [ Right Dorsalis Pedis] Respiratory 28 H Rate Blood Pressure 94/54 90/49 90/49 O2 Sat by Pulse 99 99 Oximetry O2 Sat by Pulse 99 Oximetry [ Assessment] 04/27/17 04/27/17 04/27/17 02:00 03:00 04:00 Temperature 100.2 F H Pulse Rate Pulse Rate [ 96 H 96 H 95 H None] Pulse Rate [ Right Dorsalis Pedis] Respiratory 28 H 26 H 28 H Rate Blood Pressure 90/47 93/51 92/49 O2 Sat by Pulse 99 100 100 Oximetry O2 Sat by Pulse Oximetry [ Assessment] 04/27/17 04/27/17 04/27/17 05:05 06:20 08:00 Temperature 98.7 F Pulse Rate 102 H 99 H 103 H Pulse Rate [ None] Pulse Rate [ Right Dorsalis Pedis] Respiratory 30 H Rate Blood Pressure 93/51 92/49 96/47 O2 Sat by Pulse 98 98 Oximetry O2 Sat by Pulse 98 Oximetry [ Assessment] Constitutional: comatose Eyes: non-icteric ENT: oropharynx moist Neck: supple Effort: normal Ascultation: Bilateral: clear, diminished breath sounds ( ), other (coarse BS bilaterally) Percussion: Bilateral: not dull Cardiovascular: regular rate and rhythm (no mrg) Gastrointestinal: normoactive bowel sounds, soft, non-tender, non-distended, other (mild distention) Integumentary: normal, other (multiple tattoos) Extremities: no cyanosis, no edema, pink and warm Neurologic: other (comatose, flaccid extremities, good cough w/ suction) Psychiatric: other (unable to assess) CBC and BMP: 04/27/17 05:40 04/27/17 05:40 ABG, PT/INR, D-dimer: ABG POC ABG pH 7.516 (7.35-7.45) H 04/19/17 06:50 POC ABG pCO2 28.0 (35-45) L 04/19/17 06:50 POC ABG pO2 81 (80-105) 04/19/17 06:50 POC ABG HCO3 22.7 04/19/17 06:50 POC ABG Total CO2 24 04/19/17 06:50 POC ABG O2 Sat 97 04/19/17 06:50 PT/INR, D-dimer PT 14.9 Sec. (12.2-14.9) 04/10/17 04:16 INR 1.11 (0.87-1.13) 04/10/17 04:16 Abnormal lab findings: Abnormal Labs 03/29/17 03/29/17 03/29/17 11:35 11:35 11:40 WBC RBC Hgb Hct MCV 98 H MCH 33 H Plt Count Lymph % (Auto) Eos % (Auto) Baso % (Auto) Lymph # Baso # Seg Neutrophils % Lymphocytes % (Manual) Monocytes % (Manual) 9.0 H Nucleated RBC % 1.0 H Seg Neutrophils # Seg Neutrophils # Man Monocytes # (Manual) 0.9 H PT 15.8 H INR 1.20 H Activated Clotting Time POC ABG pH POC ABG pCO2 POC ABG pO2 Sodium Potassium 2.7 L* Chloride 95.3 L Carbon Dioxide 17 L BUN Creatinine Glucose 435 H POC Glucose Calcium Magnesium Direct Bilirubin AST ALT Alkaline Phosphatase Total Creatine Kinase CK-MB (CK-2) CK-MB (CK-2) Rel Index Troponin T C-Reactive Protein Total Protein 6.1 L Albumin 3.5 L Triglycerides Ur Specific [place] Urine WBC (Auto) Miscellaneous Test 03/29/17 03/29/17 03/29/17 12:34 13:10 13:25 WBC RBC Hgb Hct MCV MCH Plt Count Lymph % (Auto) Eos % (Auto) Baso % (Auto) Lymph # Baso # Seg Neutrophils % Lymphocytes % (Manual) Monocytes % (Manual) Nucleated RBC % Seg Neutrophils # Seg Neutrophils # Man Monocytes # (Manual) PT INR Activated Clotting Time 142 H 169 H 175 H POC ABG pH POC ABG pCO2 POC ABG pO2 Sodium Potassium Chloride Carbon Dioxide BUN Creatinine Glucose POC Glucose Calcium Magnesium Direct Bilirubin AST ALT Alkaline Phosphatase Total Creatine Kinase CK-MB (CK-2) CK-MB (CK-2) Rel Index Troponin T C-Reactive Protein Total Protein Albumin Triglycerides Ur Specific [place] Urine WBC (Auto) Miscellaneous Test 03/29/17 03/29/17 03/29/17 14:50 15:18 19:52 WBC RBC Hgb Hct MCV MCH Plt Count Lymph % (Auto) Eos % (Auto) Baso % (Auto) Lymph # Baso # Seg Neutrophils % Lymphocytes % (Manual) Monocytes % (Manual) Nucleated RBC % Seg Neutrophils # Seg Neutrophils # Man Monocytes # (Manual) PT INR Activated Clotting Time 175 H POC ABG pH 7.293 L POC ABG pCO2 POC ABG pO2 602 H Sodium Potassium Chloride Carbon Dioxide BUN Creatinine Glucose POC Glucose Calcium Magnesium Direct Bilirubin AST ALT Alkaline Phosphatase Total Creatine Kinase 7263 H CK-MB (CK-2) > 300.0 H CK-MB (CK-2) Rel Index 4.1 H Troponin T 8.080 H* D C-Reactive Protein Total Protein Albumin Triglycerides 195 H Ur Specific [place] Urine WBC (Auto) Miscellaneous Test 03/30/17 03/30/17 03/30/17 03:50 03:50 06:19 WBC 19.5 H RBC Hgb Hct MCV MCH Plt Count Lymph % (Auto) Eos % (Auto) Baso % (Auto) Lymph # Baso # Seg Neutrophils % Lymphocytes % (Manual) 7.0 L Monocytes % (Manual) Nucleated RBC % Seg Neutrophils # Seg Neutrophils # Man 12.7 H Monocytes # (Manual) 1.4 H PT INR Activated Clotting Time POC ABG pH POC ABG pCO2 28.2 L POC ABG pO2 108 H Sodium Potassium Chloride 108.9 H Carbon Dioxide 15 L BUN 25 H Creatinine Glucose 158 H POC Glucose Calcium 8.1 L Magnesium Direct Bilirubin AST ALT Alkaline Phosphatase Total Creatine Kinase 7963 H CK-MB (CK-2) > 300.0 H CK-MB (CK-2) Rel Index Troponin T 6.850 H* C-Reactive Protein Total Protein Albumin Triglycerides Ur Specific [place] Urine WBC (Auto) Miscellaneous Test 03/30/17 03/30/17 03/31/17 09:45 16:04 02:19 WBC RBC Hgb Hct MCV MCH Plt Count Lymph % (Auto) Eos % (Auto) Baso % (Auto) Lymph # Baso # Seg Neutrophils % Lymphocytes % (Manual) Monocytes % (Manual) Nucleated RBC % Seg Neutrophils # Seg Neutrophils # Man Monocytes # (Manual) PT INR Activated Clotting Time POC ABG pH POC ABG pCO2 POC ABG pO2 Sodium Potassium Chloride Carbon Dioxide BUN Creatinine Glucose POC Glucose 137 H Calcium Magnesium Direct Bilirubin AST ALT Alkaline Phosphatase Total Creatine Kinase CK-MB (CK-2) CK-MB (CK-2) Rel Index Troponin T C-Reactive Protein 21.80 H Total Protein Albumin Triglycerides Ur Specific [place] 1.031 H Urine WBC (Auto) Miscellaneous Test 03/31/17 03/31/17 03/31/17 03:57 06:54 09:22 WBC RBC Hgb Hct MCV MCH Plt Count Lymph % (Auto) Eos % (Auto) Baso % (Auto) Lymph # Baso # Seg Neutrophils % Lymphocytes % (Manual) Monocytes % (Manual) Nucleated RBC % Seg Neutrophils # Seg Neutrophils # Man Monocytes # (Manual) PT INR Activated Clotting Time POC ABG pH 7.475 H POC ABG pCO2 25.4 L POC ABG pO2 62 L Sodium Potassium Chloride Carbon Dioxide 19 L BUN 22 H Creatinine 0.6 L Glucose 148 H POC Glucose 143 H Calcium 8.3 L Magnesium Direct Bilirubin AST ALT Alkaline Phosphatase Total Creatine Kinase CK-MB (CK-2) CK-MB (CK-2) Rel Index Troponin T C-Reactive Protein Total Protein Albumin Triglycerides Ur Specific [place] Urine WBC (Auto) Miscellaneous Test 03/31/17 03/31/17 03/31/17 11:40 17:47 23:38 WBC RBC Hgb Hct MCV MCH Plt Count Lymph % (Auto) Eos % (Auto) Baso % (Auto) Lymph # Baso # Seg Neutrophils % Lymphocytes % (Manual) Monocytes % (Manual) Nucleated RBC % Seg Neutrophils # Seg Neutrophils # Man Monocytes # (Manual) PT INR Activated Clotting Time POC ABG pH POC ABG pCO2 POC ABG pO2 Sodium Potassium Chloride Carbon Dioxide BUN Creatinine Glucose POC Glucose 127 H 137 H 148 H Calcium Magnesium Direct Bilirubin AST ALT Alkaline Phosphatase Total Creatine Kinase CK-MB (CK-2) CK-MB (CK-2) Rel Index Troponin T C-Reactive Protein Total Protein Albumin Triglycerides Ur Specific [place] Urine WBC (Auto) Miscellaneous Test 04/01/17 04/01/17 04/01/17 04:29 05:01 11:54 WBC RBC Hgb Hct MCV MCH Plt Count Lymph % (Auto) Eos % (Auto) Baso % (Auto) Lymph # Baso # Seg Neutrophils % Lymphocytes % (Manual) Monocytes % (Manual) Nucleated RBC % Seg Neutrophils # Seg Neutrophils # Man Monocytes # (Manual) PT INR Activated Clotting Time POC ABG pH 7.513 H POC ABG pCO2 22.1 L POC ABG pO2 64 L Sodium Potassium Chloride Carbon Dioxide BUN Creatinine Glucose POC Glucose 121 H Calcium Magnesium Direct Bilirubin AST ALT Alkaline Phosphatase Total Creatine Kinase CK-MB (CK-2) CK-MB (CK-2) Rel Index Troponin T C-Reactive Protein Total Protein Albumin Triglycerides 151 H Ur Specific [place] Urine WBC (Auto) Miscellaneous Test 04/01/17 04/02/17 04/02/17 18:17 00:11 04:52 WBC RBC Hgb Hct MCV MCH Plt Count Lymph % (Auto) Eos % (Auto) Baso % (Auto) Lymph # Baso # Seg Neutrophils % Lymphocytes % (Manual) Monocytes % (Manual) Nucleated RBC % Seg Neutrophils # Seg Neutrophils # Man Monocytes # (Manual) PT INR Activated Clotting Time POC ABG pH 7.524 H POC ABG pCO2 25.5 L POC ABG pO2 66 L Sodium Potassium Chloride Carbon Dioxide BUN Creatinine Glucose POC Glucose 117 H 122 H Calcium Magnesium Direct Bilirubin AST ALT Alkaline Phosphatase Total Creatine Kinase CK-MB (CK-2) CK-MB (CK-2) Rel Index Troponin T C-Reactive Protein Total Protein Albumin Triglycerides Ur Specific [place] Urine WBC (Auto) Miscellaneous Test 04/02/17 04/02/17 04/02/17 05:18 10:41 12:19 WBC RBC Hgb Hct MCV MCH Plt Count Lymph % (Auto) Eos % (Auto) Baso % (Auto) Lymph # Baso # Seg Neutrophils % Lymphocytes % (Manual) Monocytes % (Manual) Nucleated RBC % Seg Neutrophils # Seg Neutrophils # Man Monocytes # (Manual) PT INR Activated Clotting Time POC ABG pH 7.534 H POC ABG pCO2 27.4 L POC ABG pO2 Sodium Potassium Chloride Carbon Dioxide BUN Creatinine Glucose POC Glucose 132 H 129 H Calcium Magnesium Direct Bilirubin AST ALT Alkaline Phosphatase Total Creatine Kinase CK-MB (CK-2) CK-MB (CK-2) Rel Index Troponin T C-Reactive Protein Total Protein Albumin Triglycerides Ur Specific [place] Urine WBC (Auto) Miscellaneous Test 04/02/17 04/03/17 04/03/17 18:05 00:08 05:09 WBC RBC Hgb Hct MCV MCH Plt Count Lymph % (Auto) Eos % (Auto) Baso % (Auto) Lymph # Baso # Seg Neutrophils % Lymphocytes % (Manual) Monocytes % (Manual) Nucleated RBC % Seg Neutrophils # Seg Neutrophils # Man Monocytes # (Manual) PT INR Activated Clotting Time POC ABG pH 7.455 H POC ABG pCO2 33.2 L POC ABG pO2 120 H Sodium Potassium Chloride Carbon Dioxide BUN Creatinine Glucose POC Glucose 136 H 128 H Calcium Magnesium Direct Bilirubin AST ALT Alkaline Phosphatase Total Creatine Kinase CK-MB (CK-2) CK-MB (CK-2) Rel Index Troponin T C-Reactive Protein Total Protein Albumin Triglycerides Ur Specific [place] Urine WBC (Auto) Miscellaneous Test 04/03/17 04/03/17 04/03/17 06:32 11:54 12:16 WBC 11.9 H RBC Hgb Hct MCV MCH Plt Count 125 L Lymph % (Auto) 4.8 L Eos % (Auto) Baso % (Auto) Lymph # 0.6 L Baso # Seg Neutrophils % 86.7 H Lymphocytes % (Manual) Monocytes % (Manual) Nucleated RBC % Seg Neutrophils # 10.3 H Seg Neutrophils # Man Monocytes # (Manual) PT INR Activated Clotting Time POC ABG pH POC ABG pCO2 POC ABG pO2 Sodium Potassium Chloride Carbon Dioxide BUN Creatinine Glucose POC Glucose 138 H 143 H Calcium Magnesium Direct Bilirubin AST ALT Alkaline Phosphatase Total Creatine Kinase CK-MB (CK-2) CK-MB (CK-2) Rel Index Troponin T C-Reactive Protein Total Protein Albumin Triglycerides Ur Specific [place] Urine WBC (Auto) Miscellaneous Test 04/03/17 04/03/17 04/04/17 17:33 23:59 04:34 WBC RBC Hgb Hct MCV MCH Plt Count Lymph % (Auto) Eos % (Auto) Baso % (Auto) Lymph # Baso # Seg Neutrophils % Lymphocytes % (Manual) Monocytes % (Manual) Nucleated RBC % Seg Neutrophils # Seg Neutrophils # Man Monocytes # (Manual) PT INR Activated Clotting Time POC ABG pH 7.457 H POC ABG pCO2 29.8 L POC ABG pO2 76 L Sodium Potassium Chloride Carbon Dioxide BUN Creatinine Glucose POC Glucose 130 H 155 H Calcium Magnesium Direct Bilirubin AST ALT Alkaline Phosphatase Total Creatine Kinase CK-MB (CK-2) CK-MB (CK-2) Rel Index Troponin T C-Reactive Protein Total Protein Albumin Triglycerides Ur Specific [place] Urine WBC (Auto) Miscellaneous Test 04/04/17 04/04/17 04/04/17 05:27 12:22 18:18 WBC RBC Hgb Hct MCV MCH Plt Count Lymph % (Auto) Eos % (Auto) Baso % (Auto) Lymph # Baso # Seg Neutrophils % Lymphocytes % (Manual) Monocytes % (Manual) Nucleated RBC % Seg Neutrophils # Seg Neutrophils # Man Monocytes # (Manual) PT INR Activated Clotting Time POC ABG pH POC ABG pCO2 POC ABG pO2 Sodium Potassium Chloride Carbon Dioxide BUN Creatinine Glucose POC Glucose 164 H 146 H 130 H Calcium Magnesium Direct Bilirubin AST ALT Alkaline Phosphatase Total Creatine Kinase CK-MB (CK-2) CK-MB (CK-2) Rel Index Troponin T C-Reactive Protein Total Protein Albumin Triglycerides Ur Specific [place] Urine WBC (Auto) Miscellaneous Test 04/05/17 04/05/17 04/05/17 04:43 05:28 11:36 WBC RBC Hgb Hct MCV MCH Plt Count Lymph % (Auto) Eos % (Auto) Baso % (Auto) Lymph # Baso # Seg Neutrophils % Lymphocytes % (Manual) Monocytes % (Manual) Nucleated RBC % Seg Neutrophils # Seg Neutrophils # Man Monocytes # (Manual) PT INR Activated Clotting Time POC ABG pH 7.479 H POC ABG pCO2 33.5 L POC ABG pO2 76 L Sodium Potassium Chloride Carbon Dioxide BUN Creatinine Glucose POC Glucose 145 H 136 H Calcium Magnesium Direct Bilirubin AST ALT Alkaline Phosphatase Total Creatine Kinase CK-MB (CK-2) CK-MB (CK-2) Rel Index Troponin T C-Reactive Protein Total Protein Albumin Triglycerides Ur Specific [place] Urine WBC (Auto) Miscellaneous Test 04/05/17 04/06/17 04/06/17 17:58 00:16 05:26 WBC RBC Hgb Hct MCV MCH Plt Count Lymph % (Auto) Eos % (Auto) Baso % (Auto) Lymph # Baso # Seg Neutrophils % Lymphocytes % (Manual) Monocytes % (Manual) Nucleated RBC % Seg Neutrophils # Seg Neutrophils # Man Monocytes # (Manual) PT INR Activated Clotting Time POC ABG pH POC ABG pCO2 POC ABG pO2 Sodium Potassium Chloride Carbon Dioxide BUN Creatinine Glucose POC Glucose 130 H 159 H 146 H Calcium Magnesium Direct Bilirubin AST ALT Alkaline Phosphatase Total Creatine Kinase CK-MB (CK-2) CK-MB (CK-2) Rel Index Troponin T C-Reactive Protein Total Protein Albumin Triglycerides Ur Specific [place] Urine WBC (Auto) Miscellaneous Test 04/06/17 04/06/17 04/07/17 13:11 16:54 11:45 WBC RBC Hgb Hct MCV MCH Plt Count Lymph % (Auto) Eos % (Auto) Baso % (Auto) Lymph # Baso # Seg Neutrophils % Lymphocytes % (Manual) Monocytes % (Manual) Nucleated RBC % Seg Neutrophils # Seg Neutrophils # Man Monocytes # (Manual) PT INR Activated Clotting Time POC ABG pH 7.517 H POC ABG pCO2 32.1 L POC ABG pO2 Sodium Potassium Chloride Carbon Dioxide BUN Creatinine Glucose POC Glucose 132 H 123 H Calcium Magnesium Direct Bilirubin AST ALT Alkaline Phosphatase Total Creatine Kinase CK-MB (CK-2) CK-MB (CK-2) Rel Index Troponin T C-Reactive Protein Total Protein Albumin Triglycerides Ur Specific [place] Urine WBC (Auto) Miscellaneous Test 04/07/17 04/07/17 04/07/17 12:51 17:40 23:55 WBC RBC Hgb Hct MCV MCH Plt Count Lymph % (Auto) Eos % (Auto) Baso % (Auto) Lymph # Baso # Seg Neutrophils % Lymphocytes % (Manual) Monocytes % (Manual) Nucleated RBC % Seg Neutrophils # Seg Neutrophils # Man Monocytes # (Manual) PT INR Activated Clotting Time POC ABG pH POC ABG pCO2 POC ABG pO2 Sodium Potassium Chloride Carbon Dioxide BUN Creatinine Glucose POC Glucose 138 H 154 H 143 H Calcium Magnesium Direct Bilirubin AST ALT Alkaline Phosphatase Total Creatine Kinase CK-MB (CK-2) CK-MB (CK-2) Rel Index Troponin T C-Reactive Protein Total Protein Albumin Triglycerides Ur Specific [place] Urine WBC (Auto) Miscellaneous Test 04/08/17 04/08/17 04/08/17 05:27 11:14 17:44 WBC RBC Hgb Hct MCV MCH Plt Count Lymph % (Auto) Eos % (Auto) Baso % (Auto) Lymph # Baso # Seg Neutrophils % Lymphocytes % (Manual) Monocytes % (Manual) Nucleated RBC % Seg Neutrophils # Seg Neutrophils # Man Monocytes # (Manual) PT INR Activated Clotting Time POC ABG pH POC ABG pCO2 POC ABG pO2 Sodium Potassium Chloride Carbon Dioxide BUN Creatinine Glucose POC Glucose 142 H 153 H 129 H Calcium Magnesium Direct Bilirubin AST ALT Alkaline Phosphatase Total Creatine Kinase CK-MB (CK-2) CK-MB (CK-2) Rel Index Troponin T C-Reactive Protein Total Protein Albumin Triglycerides Ur Specific [place] Urine WBC (Auto) Miscellaneous Test 04/09/17 04/09/17 04/09/17 08:20 11:21 17:37 WBC RBC Hgb Hct MCV MCH Plt Count Lymph % (Auto) Eos % (Auto) Baso % (Auto) Lymph # Baso # Seg Neutrophils % Lymphocytes % (Manual) Monocytes % (Manual) Nucleated RBC % Seg Neutrophils # Seg Neutrophils # Man Monocytes # (Manual) PT INR Activated Clotting Time POC ABG pH POC ABG pCO2 POC ABG pO2 Sodium 147 H Potassium Chloride 108.8 H Carbon Dioxide BUN 39 H Creatinine 0.5 L Glucose 138 H POC Glucose 152 H 109 H Calcium Magnesium Direct Bilirubin AST ALT Alkaline Phosphatase Total Creatine Kinase CK-MB (CK-2) CK-MB (CK-2) Rel Index Troponin T C-Reactive Protein Total Protein Albumin Triglycerides Ur Specific [place] Urine WBC (Auto) Miscellaneous Test 04/10/17 04/10/17 04/10/17 00:13 04:16 04:16 WBC RBC Hgb 11.5 L Hct MCV 96 H MCH Plt Count 103 L Lymph % (Auto) 11.1 L Eos % (Auto) Baso % (Auto) Lymph # Baso # Seg Neutrophils % 81.5 H Lymphocytes % (Manual) Monocytes % (Manual) Nucleated RBC % Seg Neutrophils # 8.8 H Seg Neutrophils # Man Monocytes # (Manual) PT INR Activated Clotting Time POC ABG pH POC ABG pCO2 POC ABG pO2 Sodium 148 H Potassium Chloride 109.0 H Carbon Dioxide BUN 36 H Creatinine 0.5 L Glucose 131 H POC Glucose 127 H Calcium 8.1 L Magnesium 2.40 H Direct Bilirubin AST 206 H ALT 228 H Alkaline Phosphatase 178 H Total Creatine Kinase CK-MB (CK-2) CK-MB (CK-2) Rel Index Troponin T C-Reactive Protein Total Protein Albumin 2.8 L Triglycerides Ur Specific [place] Urine WBC (Auto) Miscellaneous Test 04/10/17 04/10/17 04/10/17 06:01 11:57 18:27 WBC RBC Hgb Hct MCV MCH Plt Count Lymph % (Auto) Eos % (Auto) Baso % (Auto) Lymph # Baso # Seg Neutrophils % Lymphocytes % (Manual) Monocytes % (Manual) Nucleated RBC % Seg Neutrophils # Seg Neutrophils # Man Monocytes # (Manual) PT INR Activated Clotting Time POC ABG pH POC ABG pCO2 POC ABG pO2 Sodium Potassium Chloride Carbon Dioxide BUN Creatinine Glucose POC Glucose 108 H 154 H 130 H Calcium Magnesium Direct Bilirubin AST ALT Alkaline Phosphatase Total Creatine Kinase CK-MB (CK-2) CK-MB (CK-2) Rel Index Troponin T C-Reactive Protein Total Protein Albumin Triglycerides Ur Specific [place] Urine WBC (Auto) Miscellaneous Test 04/11/17 04/11/17 04/12/17 12:25 17:10 00:22 WBC RBC Hgb Hct MCV MCH Plt Count Lymph % (Auto) Eos % (Auto) Baso % (Auto) Lymph # Baso # Seg Neutrophils % Lymphocytes % (Manual) Monocytes % (Manual) Nucleated RBC % Seg Neutrophils # Seg Neutrophils # Man Monocytes # (Manual) PT INR Activated Clotting Time POC ABG pH POC ABG pCO2 POC ABG pO2 Sodium Potassium Chloride Carbon Dioxide BUN Creatinine Glucose POC Glucose 107 H 129 H 128 H Calcium Magnesium Direct Bilirubin AST ALT Alkaline Phosphatase Total Creatine Kinase CK-MB (CK-2) CK-MB (CK-2) Rel Index Troponin T C-Reactive Protein Total Protein Albumin Triglycerides Ur Specific [place] Urine WBC (Auto) Miscellaneous Test 04/12/17 04/12/17 04/12/17 05:00 11:57 17:47 WBC RBC Hgb Hct MCV MCH Plt Count Lymph % (Auto) Eos % (Auto) Baso % (Auto) Lymph # Baso # Seg Neutrophils % Lymphocytes % (Manual) Monocytes % (Manual) Nucleated RBC % Seg Neutrophils # Seg Neutrophils # Man Monocytes # (Manual) PT INR Activated Clotting Time POC ABG pH POC ABG pCO2 POC ABG pO2 Sodium Potassium Chloride Carbon Dioxide BUN Creatinine Glucose POC Glucose 140 H 142 H Calcium Magnesium Direct Bilirubin AST 158 H ALT 184 H Alkaline Phosphatase 170 H Total Creatine Kinase CK-MB (CK-2) CK-MB (CK-2) Rel Index Troponin T C-Reactive Protein Total Protein Albumin 2.8 L Triglycerides Ur Specific [place] Urine WBC (Auto) Miscellaneous Test 04/12/17 04/12/17 04/13/17 21:36 21:36 01:37 WBC RBC Hgb Hct MCV MCH Plt Count Lymph % (Auto) Eos % (Auto) Baso % (Auto) Lymph # Baso # Seg Neutrophils % Lymphocytes % (Manual) Monocytes % (Manual) Nucleated RBC % Seg Neutrophils # Seg Neutrophils # Man Monocytes # (Manual) PT INR Activated Clotting Time POC ABG pH POC ABG pCO2 POC ABG pO2 Sodium Potassium Chloride Carbon Dioxide BUN Creatinine Glucose POC Glucose 126 H Calcium Magnesium Direct Bilirubin AST ALT Alkaline Phosphatase Total Creatine Kinase 1404 H CK-MB (CK-2) 8.0 H CK-MB (CK-2) Rel Index Troponin T 0.767 H* C-Reactive Protein Total Protein Albumin Triglycerides Ur Specific [place] Urine WBC (Auto) Miscellaneous Test 04/13/17 04/13/17 04/13/17 04:45 04:52 12:17 WBC RBC Hgb Hct MCV MCH Plt Count Lymph % (Auto) Eos % (Auto) Baso % (Auto) Lymph # Baso # Seg Neutrophils % Lymphocytes % (Manual) Monocytes % (Manual) Nucleated RBC % Seg Neutrophils # Seg Neutrophils # Man Monocytes # (Manual) PT INR Activated Clotting Time POC ABG pH POC ABG pCO2 POC ABG pO2 Sodium 148 H Potassium Chloride 112.8 H Carbon Dioxide BUN 33 H Creatinine 0.4 L Glucose 121 H POC Glucose 126 H 149 H Calcium Magnesium Direct Bilirubin AST 160 H ALT 189 H Alkaline Phosphatase 166 H Total Creatine Kinase CK-MB (CK-2) CK-MB (CK-2) Rel Index Troponin T C-Reactive Protein Total Protein Albumin 2.6 L Triglycerides Ur Specific [place] Urine WBC (Auto) Miscellaneous Test 04/13/17 04/14/17 04/14/17 17:45 00:20 00:45 WBC RBC Hgb Hct MCV MCH Plt Count Lymph % (Auto) Eos % (Auto) Baso % (Auto) Lymph # Baso # Seg Neutrophils % Lymphocytes % (Manual) Monocytes % (Manual) Nucleated RBC % Seg Neutrophils # Seg Neutrophils # Man Monocytes # (Manual) PT INR Activated Clotting Time POC ABG pH POC ABG pCO2 POC ABG pO2 Sodium Potassium Chloride Carbon Dioxide BUN Creatinine Glucose POC Glucose 130 H 144 H 144 H Calcium Magnesium Direct Bilirubin AST ALT Alkaline Phosphatase Total Creatine Kinase CK-MB (CK-2) CK-MB (CK-2) Rel Index Troponin T C-Reactive Protein Total Protein Albumin Triglycerides Ur Specific [place] Urine WBC (Auto) Miscellaneous Test 04/14/17 04/14/17 04/14/17 05:40 11:06 11:31 WBC RBC Hgb Hct MCV MCH Plt Count Lymph % (Auto) Eos % (Auto) Baso % (Auto) Lymph # Baso # Seg Neutrophils % Lymphocytes % (Manual) Monocytes % (Manual) Nucleated RBC % Seg Neutrophils # Seg Neutrophils # Man Monocytes # (Manual) PT INR Activated Clotting Time POC ABG pH POC ABG pCO2 POC ABG pO2 Sodium Potassium Chloride Carbon Dioxide BUN Creatinine Glucose POC Glucose 139 H 123 H Calcium Magnesium Direct Bilirubin AST ALT Alkaline Phosphatase Total Creatine Kinase CK-MB (CK-2) CK-MB (CK-2) Rel Index Troponin T C-Reactive Protein Total Protein Albumin Triglycerides Ur Specific [place] 1.033 H Urine WBC (Auto) > 182.0 H Miscellaneous Test 04/14/17 04/14/17 04/15/17 18:00 23:52 05:15 WBC 12.5 H RBC 3.38 L Hgb 10.6 L Hct 32.7 L MCV 97 H MCH Plt Count 107 L Lymph % (Auto) 8.7 L Eos % (Auto) Baso % (Auto) Lymph # 1.1 L Baso # Seg Neutrophils % 86.1 H Lymphocytes % (Manual) Monocytes % (Manual) Nucleated RBC % Seg Neutrophils # 10.7 H Seg Neutrophils # Man Monocytes # (Manual) PT INR Activated Clotting Time POC ABG pH POC ABG pCO2 POC ABG pO2 Sodium Potassium Chloride Carbon Dioxide BUN Creatinine Glucose POC Glucose 133 H 133 H Calcium Magnesium Direct Bilirubin AST ALT Alkaline Phosphatase Total Creatine Kinase CK-MB (CK-2) CK-MB (CK-2) Rel Index Troponin T C-Reactive Protein Total Protein Albumin Triglycerides Ur Specific [place] Urine WBC (Auto) Miscellaneous Test 04/15/17 04/15/17 04/15/17 05:15 05:25 11:50 WBC RBC Hgb Hct MCV MCH Plt Count Lymph % (Auto) Eos % (Auto) Baso % (Auto) Lymph # Baso # Seg Neutrophils % Lymphocytes % (Manual) Monocytes % (Manual) Nucleated RBC % Seg Neutrophils # Seg Neutrophils # Man Monocytes # (Manual) PT INR Activated Clotting Time POC ABG pH POC ABG pCO2 POC ABG pO2 Sodium 149 H Potassium 3.5 L Chloride 114.1 H Carbon Dioxide 21 L BUN 29 H Creatinine 0.4 L Glucose 128 H POC Glucose 133 H 107 H Calcium 8.3 L Magnesium Direct Bilirubin 0.4 H AST 149 H ALT 182 H Alkaline Phosphatase 143 H Total Creatine Kinase CK-MB (CK-2) CK-MB (CK-2) Rel Index Troponin T C-Reactive Protein Total Protein Albumin 2.5 L Triglycerides Ur Specific [place] Urine WBC (Auto) Miscellaneous Test 04/15/17 04/16/17 04/16/17 16:55 00:02 03:17 WBC RBC 3.39 L Hgb 10.5 L Hct 32.4 L MCV 96 H MCH Plt Count 106 L Lymph % (Auto) 6.7 L Eos % (Auto) Baso % (Auto) Lymph # 0.6 L Baso # Seg Neutrophils % 86.8 H Lymphocytes % (Manual) Monocytes % (Manual) Nucleated RBC % Seg Neutrophils # 8.2 H Seg Neutrophils # Man Monocytes # (Manual) PT INR Activated Clotting Time POC ABG pH POC ABG pCO2 POC ABG pO2 Sodium Potassium Chloride Carbon Dioxide BUN Creatinine Glucose POC Glucose 146 H 148 H Calcium Magnesium Direct Bilirubin AST ALT Alkaline Phosphatase Total Creatine Kinase CK-MB (CK-2) CK-MB (CK-2) Rel Index Troponin T C-Reactive Protein Total Protein Albumin Triglycerides Ur Specific [place] Urine WBC (Auto) Miscellaneous Test 04/16/17 04/16/17 04/16/17 03:17 05:19 11:13 WBC RBC Hgb Hct MCV MCH Plt Count Lymph % (Auto) Eos % (Auto) Baso % (Auto) Lymph # Baso # Seg Neutrophils % Lymphocytes % (Manual) Monocytes % (Manual) Nucleated RBC % Seg Neutrophils # Seg Neutrophils # Man Monocytes # (Manual) PT INR Activated Clotting Time POC ABG pH POC ABG pCO2 POC ABG pO2 Sodium 149 H Potassium Chloride 111.1 H Carbon Dioxide 20 L BUN 27 H Creatinine 0.3 L Glucose 156 H POC Glucose 171 H 169 H Calcium 8.3 L Magnesium Direct Bilirubin AST ALT Alkaline Phosphatase Total Creatine Kinase CK-MB (CK-2) CK-MB (CK-2) Rel Index Troponin T C-Reactive Protein Total Protein Albumin Triglycerides Ur Specific [place] Urine WBC (Auto) Miscellaneous Test 04/16/17 04/17/17 04/17/17 17:03 00:00 05:09 WBC RBC Hgb Hct MCV MCH Plt Count Lymph % (Auto) Eos % (Auto) Baso % (Auto) Lymph # Baso # Seg Neutrophils % Lymphocytes % (Manual) Monocytes % (Manual) Nucleated RBC % Seg Neutrophils # Seg Neutrophils # Man Monocytes # (Manual) PT INR Activated Clotting Time POC ABG pH POC ABG pCO2 POC ABG pO2 Sodium Potassium Chloride Carbon Dioxide BUN Creatinine Glucose POC Glucose 151 H 165 H 145 H Calcium Magnesium Direct Bilirubin AST ALT Alkaline Phosphatase Total Creatine Kinase CK-MB (CK-2) CK-MB (CK-2) Rel Index Troponin T C-Reactive Protein Total Protein Albumin Triglycerides Ur Specific [place] Urine WBC (Auto) Miscellaneous Test 04/17/17 04/17/17 04/18/17 11:38 17:47 00:01 WBC RBC Hgb Hct MCV MCH Plt Count Lymph % (Auto) Eos % (Auto) Baso % (Auto) Lymph # Baso # Seg Neutrophils % Lymphocytes % (Manual) Monocytes % (Manual) Nucleated RBC % Seg Neutrophils # Seg Neutrophils # Man Monocytes # (Manual) PT INR Activated Clotting Time POC ABG pH POC ABG pCO2 POC ABG pO2 Sodium Potassium Chloride Carbon Dioxide BUN Creatinine Glucose POC Glucose 170 H 161 H 131 H Calcium Magnesium Direct Bilirubin AST ALT Alkaline Phosphatase Total Creatine Kinase CK-MB (CK-2) CK-MB (CK-2) Rel Index Troponin T C-Reactive Protein Total Protein Albumin Triglycerides Ur Specific [place] Urine WBC (Auto) Miscellaneous Test 04/18/17 04/18/17 04/18/17 03:55 03:55 05:30 WBC RBC 3.05 L Hgb 9.8 L Hct 29.0 L MCV 95 H MCH Plt Count 113 L Lymph % (Auto) Eos % (Auto) 5.3 H Baso % (Auto) Lymph # Baso # Seg Neutrophils % 71.5 H Lymphocytes % (Manual) Monocytes % (Manual) Nucleated RBC % Seg Neutrophils # Seg Neutrophils # Man Monocytes # (Manual) PT INR Activated Clotting Time POC ABG pH 7.460 H POC ABG pCO2 30.8 L POC ABG pO2 129 H Sodium Potassium Chloride Carbon Dioxide 21 L BUN 25 H Creatinine 0.4 L Glucose 123 H POC Glucose Calcium 8.3 L Magnesium Direct Bilirubin AST ALT Alkaline Phosphatase Total Creatine Kinase CK-MB (CK-2) CK-MB (CK-2) Rel Index Troponin T C-Reactive Protein Total Protein Albumin Triglycerides Ur Specific [place] Urine WBC (Auto) Miscellaneous Test 04/18/17 04/18/17 04/19/17 17:10 23:40 04:36 WBC RBC 3.21 L Hgb 10.2 L Hct 30.4 L MCV 95 H MCH Plt Count 131 L Lymph % (Auto) 12.1 L Eos % (Auto) 4.7 H Baso % (Auto) 2.4 H Lymph # 0.9 L Baso # 0.2 H Seg Neutrophils % 75.0 H Lymphocytes % (Manual) Monocytes % (Manual) Nucleated RBC % Seg Neutrophils # Seg Neutrophils # Man Monocytes # (Manual) PT INR Activated Clotting Time POC ABG pH POC ABG pCO2 POC ABG pO2 Sodium Potassium Chloride Carbon Dioxide BUN Creatinine Glucose POC Glucose 135 H 157 H Calcium Magnesium Direct Bilirubin AST ALT Alkaline Phosphatase Total Creatine Kinase CK-MB (CK-2) CK-MB (CK-2) Rel Index Troponin T C-Reactive Protein Total Protein Albumin Triglycerides Ur Specific [place] Urine WBC (Auto) Miscellaneous Test 04/19/17 04/19/17 04/19/17 04:36 05:12 06:50 WBC RBC Hgb Hct MCV MCH Plt Count Lymph % (Auto) Eos % (Auto) Baso % (Auto) Lymph # Baso # Seg Neutrophils % Lymphocytes % (Manual) Monocytes % (Manual) Nucleated RBC % Seg Neutrophils # Seg Neutrophils # Man Monocytes # (Manual) PT INR Activated Clotting Time POC ABG pH 7.516 H POC ABG pCO2 28.0 L POC ABG pO2 Sodium Potassium Chloride Carbon Dioxide 21 L BUN 23 H Creatinine 0.2 L Glucose 137 H POC Glucose 131 H Calcium 7.9 L Magnesium Direct Bilirubin AST ALT Alkaline Phosphatase Total Creatine Kinase CK-MB (CK-2) CK-MB (CK-2) Rel Index Troponin T C-Reactive Protein Total Protein Albumin Triglycerides Ur Specific [place] Urine WBC (Auto) Miscellaneous Test 04/19/17 04/19/17 04/20/17 12:36 17:42 00:12 WBC RBC Hgb Hct MCV MCH Plt Count Lymph % (Auto) Eos % (Auto) Baso % (Auto) Lymph # Baso # Seg Neutrophils % Lymphocytes % (Manual) Monocytes % (Manual) Nucleated RBC % Seg Neutrophils # Seg Neutrophils # Man Monocytes # (Manual) PT INR Activated Clotting Time POC ABG pH POC ABG pCO2 POC ABG pO2 Sodium Potassium Chloride Carbon Dioxide BUN Creatinine Glucose POC Glucose 128 H 140 H 132 H Calcium Magnesium Direct Bilirubin AST ALT Alkaline Phosphatase Total Creatine Kinase CK-MB (CK-2) CK-MB (CK-2) Rel Index Troponin T C-Reactive Protein Total Protein Albumin Triglycerides Ur Specific [place] Urine WBC (Auto) Miscellaneous Test 04/20/17 04/20/17 04/20/17 03:35 03:35 05:10 WBC RBC 3.34 L Hgb 10.4 L Hct 31.6 L MCV 95 H MCH Plt Count Lymph % (Auto) 12.9 L Eos % (Auto) Baso % (Auto) Lymph # Baso # Seg Neutrophils % 77.3 H Lymphocytes % (Manual) Monocytes % (Manual) Nucleated RBC % Seg Neutrophils # Seg Neutrophils # Man Monocytes # (Manual) PT INR Activated Clotting Time POC ABG pH POC ABG pCO2 POC ABG pO2 Sodium Potassium Chloride Carbon Dioxide BUN Creatinine 0.3 L Glucose 155 H POC Glucose 135 H Calcium 7.8 L Magnesium Direct Bilirubin AST ALT Alkaline Phosphatase Total Creatine Kinase CK-MB (CK-2) CK-MB (CK-2) Rel Index Troponin T C-Reactive Protein Total Protein Albumin Triglycerides Ur Specific [place] Urine WBC (Auto) Miscellaneous Test 04/20/17 04/20/17 04/21/17 12:49 18:21 00:05 WBC RBC Hgb Hct MCV MCH Plt Count Lymph % (Auto) Eos % (Auto) Baso % (Auto) Lymph # Baso # Seg Neutrophils % Lymphocytes % (Manual) Monocytes % (Manual) Nucleated RBC % Seg Neutrophils # Seg Neutrophils # Man Monocytes # (Manual) PT INR Activated Clotting Time POC ABG pH POC ABG pCO2 POC ABG pO2 Sodium Potassium Chloride Carbon Dioxide BUN Creatinine Glucose POC Glucose 155 H 165 H 141 H Calcium Magnesium Direct Bilirubin AST ALT Alkaline Phosphatase Total Creatine Kinase CK-MB (CK-2) CK-MB (CK-2) Rel Index Troponin T C-Reactive Protein Total Protein Albumin Triglycerides Ur Specific [place] Urine WBC (Auto) Miscellaneous Test 04/21/17 04/21/17 04/21/17 06:00 12:11 17:04 WBC RBC Hgb Hct MCV MCH Plt Count Lymph % (Auto) Eos % (Auto) Baso % (Auto) Lymph # Baso # Seg Neutrophils % Lymphocytes % (Manual) Monocytes % (Manual) Nucleated RBC % Seg Neutrophils # Seg Neutrophils # Man Monocytes # (Manual) PT INR Activated Clotting Time POC ABG pH POC ABG pCO2 POC ABG pO2 Sodium Potassium Chloride Carbon Dioxide BUN Creatinine Glucose POC Glucose 152 H 165 H 156 H Calcium Magnesium Direct Bilirubin AST ALT Alkaline Phosphatase Total Creatine Kinase CK-MB (CK-2) CK-MB (CK-2) Rel Index Troponin T C-Reactive Protein Total Protein Albumin Triglycerides Ur Specific [place] Urine WBC (Auto) Miscellaneous Test 04/21/17 04/21/17 04/22/17 22:00 23:59 05:49 WBC RBC Hgb Hct MCV MCH Plt Count Lymph % (Auto) Eos % (Auto) Baso % (Auto) Lymph # Baso # Seg Neutrophils % Lymphocytes % (Manual) Monocytes % (Manual) Nucleated RBC % Seg Neutrophils # Seg Neutrophils # Man Monocytes # (Manual) PT INR Activated Clotting Time POC ABG pH POC ABG pCO2 POC ABG pO2 Sodium Potassium Chloride Carbon Dioxide BUN Creatinine Glucose POC Glucose 166 H 173 H Calcium Magnesium Direct Bilirubin AST ALT Alkaline Phosphatase Total Creatine Kinase CK-MB (CK-2) CK-MB (CK-2) Rel Index Troponin T C-Reactive Protein Total Protein Albumin Triglycerides Ur Specific [place] Urine WBC (Auto) 10.0 H Miscellaneous Test 04/22/17 04/22/17 04/23/17 11:11 18:04 00:37 WBC RBC Hgb Hct MCV MCH Plt Count Lymph % (Auto) Eos % (Auto) Baso % (Auto) Lymph # Baso # Seg Neutrophils % Lymphocytes % (Manual) Monocytes % (Manual) Nucleated RBC % Seg Neutrophils # Seg Neutrophils # Man Monocytes # (Manual) PT INR Activated Clotting Time POC ABG pH POC ABG pCO2 POC ABG pO2 Sodium Potassium Chloride Carbon Dioxide BUN Creatinine Glucose POC Glucose 172 H 140 H 135 H Calcium Magnesium Direct Bilirubin AST ALT Alkaline Phosphatase Total Creatine Kinase CK-MB (CK-2) CK-MB (CK-2) Rel Index Troponin T C-Reactive Protein Total Protein Albumin Triglycerides Ur Specific [place] Urine WBC (Auto) Miscellaneous Test 04/23/17 04/23/17 04/23/17 05:33 06:20 11:10 WBC RBC 3.19 L Hgb 9.9 L Hct 30.0 L MCV MCH Plt Count Lymph % (Auto) 8.0 L Eos % (Auto) Baso % (Auto) Lymph # 0.8 L Baso # Seg Neutrophils % 84.5 H Lymphocytes % (Manual) Monocytes % (Manual) Nucleated RBC % Seg Neutrophils # 8.2 H Seg Neutrophils # Man Monocytes # (Manual) PT INR Activated Clotting Time POC ABG pH POC ABG pCO2 POC ABG pO2 Sodium Potassium Chloride Carbon Dioxide BUN Creatinine Glucose POC Glucose 134 H 134 H Calcium Magnesium Direct Bilirubin AST ALT Alkaline Phosphatase Total Creatine Kinase CK-MB (CK-2) CK-MB (CK-2) Rel Index Troponin T C-Reactive Protein Total Protein Albumin Triglycerides Ur Specific [place] Urine WBC (Auto) Miscellaneous Test 04/23/17 04/24/17 04/24/17 17:26 00:53 06:46 WBC RBC Hgb Hct MCV MCH Plt Count Lymph % (Auto) Eos % (Auto) Baso % (Auto) Lymph # Baso # Seg Neutrophils % Lymphocytes % (Manual) Monocytes % (Manual) Nucleated RBC % Seg Neutrophils # Seg Neutrophils # Man Monocytes # (Manual) PT INR Activated Clotting Time POC ABG pH POC ABG pCO2 POC ABG pO2 Sodium Potassium Chloride Carbon Dioxide BUN Creatinine Glucose POC Glucose 164 H 146 H 125 H Calcium Magnesium Direct Bilirubin AST ALT Alkaline Phosphatase Total Creatine Kinase CK-MB (CK-2) CK-MB (CK-2) Rel Index Troponin T C-Reactive Protein Total Protein Albumin Triglycerides Ur Specific [place] Urine WBC (Auto) Miscellaneous Test 04/24/17 04/24/17 04/24/17 11:55 17:50 23:36 WBC RBC Hgb Hct MCV MCH Plt Count Lymph % (Auto) Eos % (Auto) Baso % (Auto) Lymph # Baso # Seg Neutrophils % Lymphocytes % (Manual) Monocytes % (Manual) Nucleated RBC % Seg Neutrophils # Seg Neutrophils # Man Monocytes # (Manual) PT INR Activated Clotting Time POC ABG pH POC ABG pCO2 POC ABG pO2 Sodium Potassium Chloride Carbon Dioxide BUN Creatinine Glucose POC Glucose 156 H 146 H 131 H Calcium Magnesium Direct Bilirubin AST ALT Alkaline Phosphatase Total Creatine Kinase CK-MB (CK-2) CK-MB (CK-2) Rel Index Troponin T C-Reactive Protein Total Protein Albumin Triglycerides Ur Specific [place] Urine WBC (Auto) Miscellaneous Test 04/25/17 04/25/17 04/25/17 04:51 05:16 07:07 WBC RBC Hgb Hct MCV MCH Plt Count Lymph % (Auto) Eos % (Auto) Baso % (Auto) Lymph # Baso # Seg Neutrophils % Lymphocytes % (Manual) Monocytes % (Manual) Nucleated RBC % Seg Neutrophils # Seg Neutrophils # Man Monocytes # (Manual) PT INR Activated Clotting Time POC ABG pH POC ABG pCO2 POC ABG pO2 Sodium Potassium Chloride Carbon Dioxide BUN Creatinine Glucose POC Glucose 139 H Calcium Magnesium Direct Bilirubin AST 105 H ALT 204 H Alkaline Phosphatase 189 H Total Creatine Kinase CK-MB (CK-2) CK-MB (CK-2) Rel Index Troponin T C-Reactive Protein Total Protein Albumin 2.4 L Triglycerides Ur Specific [place] Urine WBC (Auto) Miscellaneous Test Flexitest 1 H 04/25/17 04/25/17 04/25/17 12:29 17:23 23:32 WBC RBC Hgb Hct MCV MCH Plt Count Lymph % (Auto) Eos % (Auto) Baso % (Auto) Lymph # Baso # Seg Neutrophils % Lymphocytes % (Manual) Monocytes % (Manual) Nucleated RBC % Seg Neutrophils # Seg Neutrophils # Man Monocytes # (Manual) PT INR Activated Clotting Time POC ABG pH POC ABG pCO2 POC ABG pO2 Sodium Potassium Chloride Carbon Dioxide BUN Creatinine Glucose POC Glucose 132 H 133 H 128 H Calcium Magnesium Direct Bilirubin AST ALT Alkaline Phosphatase Total Creatine Kinase CK-MB (CK-2) CK-MB (CK-2) Rel Index Troponin T C-Reactive Protein Total Protein Albumin Triglycerides Ur Specific [place] Urine WBC (Auto) Miscellaneous Test 04/26/17 04/26/17 04/26/17 05:24 11:28 17:09 WBC RBC Hgb Hct MCV MCH Plt Count Lymph % (Auto) Eos % (Auto) Baso % (Auto) Lymph # Baso # Seg Neutrophils % Lymphocytes % (Manual) Monocytes % (Manual) Nucleated RBC % Seg Neutrophils # Seg Neutrophils # Man Monocytes # (Manual) PT INR Activated Clotting Time POC ABG pH POC ABG pCO2 POC ABG pO2 Sodium Potassium Chloride Carbon Dioxide BUN Creatinine Glucose POC Glucose 132 H 146 H 141 H Calcium Magnesium Direct Bilirubin AST ALT Alkaline Phosphatase Total Creatine Kinase CK-MB (CK-2) CK-MB (CK-2) Rel Index Troponin T C-Reactive Protein Total Protein Albumin Triglycerides Ur Specific [place] Urine WBC (Auto) Miscellaneous Test 04/26/17 04/27/17 04/27/17 23:52 05:40 05:40 WBC RBC 3.22 L Hgb 10.0 L Hct 29.9 L MCV MCH Plt Count Lymph % (Auto) Eos % (Auto) Baso % (Auto) Lymph # Baso # Seg Neutrophils % 76.6 H Lymphocytes % (Manual) Monocytes % (Manual) Nucleated RBC % Seg Neutrophils # Seg Neutrophils # Man Monocytes # (Manual) PT INR Activated Clotting Time POC ABG pH POC ABG pCO2 POC ABG pO2 Sodium Potassium Chloride Carbon Dioxide BUN Creatinine Glucose POC Glucose 140 H Calcium Magnesium Direct Bilirubin AST 66 H ALT 137 H Alkaline Phosphatase 169 H Total Creatine Kinase CK-MB (CK-2) CK-MB (CK-2) Rel Index Troponin T C-Reactive Protein Total Protein 6.2 L Albumin 2.6 L Triglycerides Ur Specific [place] Urine WBC (Auto) Miscellaneous Test 04/27/17 04/27/17 05:40 06:10 WBC RBC Hgb Hct MCV MCH Plt Count Lymph % (Auto) Eos % (Auto) Baso % (Auto) Lymph # Baso # Seg Neutrophils % Lymphocytes % (Manual) Monocytes % (Manual) Nucleated RBC % Seg Neutrophils # Seg Neutrophils # Man Monocytes # (Manual) PT INR Activated Clotting Time POC ABG pH POC ABG pCO2 POC ABG pO2 Sodium Potassium Chloride Carbon Dioxide BUN Creatinine 0.2 L Glucose 139 H POC Glucose 130 H Calcium Magnesium Direct Bilirubin AST ALT Alkaline Phosphatase Total Creatine Kinase CK-MB (CK-2) CK-MB (CK-2) Rel Index Troponin T C-Reactive Protein Total Protein Albumin Triglycerides Ur Specific [place] Urine WBC (Auto) Miscellaneous Test
[2017-04-27] MEDS: PROTONIX FEEDTUBE SCH (12:26)
[2017-04-27] MEDS: ASPIRIN PO SCH (12:26)
[2017-04-27] MEDS: PLAVIX PO SCH (12:26)
[2017-04-27] MEDS: HEPARIN SUB-Q SCH ×2 (12:27→21:45)
--- NOTE | 2017-04-27 13:19 | XRay Report ---
Portable chest: Followup respiratory failure/CHF. Comparison is made to the most recent study of April 22. Tracheostomy and right PICC lines remain in good positions. There is a changing pattern of bronchoalveolar opacities being somewhat worse currently in the right lower lobe but improved in the left lung base. There is no vascular congestion identified. The mild increased right densities in part may be due to rotation. Impressions: Changing pattern of pulmonary infiltrates. The possibility of this representing congestive failure cannot be excluded but underlying lung disease and possible inflammatory changes are also strong considerations.
[2017-04-27] MEDS: ZESTRIL PO SCH (13:22)
[2017-04-27] MEDS: COLACE FEEDTUBE SCH ×2 (13:22→22:00)
[2017-04-28] MEDS: LOPRESSOR PO SCH ×4 (00:19→17:43)
[2017-04-28] MEDS: NOVOLOG SUB-Q SCH ×4 (00:19→17:43)
[2017-04-28] MEDS: MAXIPIME 2 GM in NACL 0.9% 20 ML IV SCH ×3 (06:13→21:58)
--- NOTE | 2017-04-28 09:02 | Progress Note ---
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 Although patient tolerated PSV yesterday, CXR looks like pulmonary edema. Will given lasix 20 today. Continue PSV trials on a daily basis. Remainder of recs below. 1. Continue PSV trials as tolerated. 2. As per my partner, goal would be T-piece 17/10. Will need trach indefinitely given mental state 3. Continue vent support and management 4. Continue all other cardiac meds 5. Overall prognosis still remains poor given amount of downtime during arrest. CCT 31 minutes. Subjective Date of service: 04/28/17 Principal diagnosis: Acute IN Interval history: No acute events. Mental state is unchanged. No family currently at bedside. Tolerated PSV the majority of the day. Objective Vital Signs - 12hr 04/27/17 04/27/17 04/27/17 22:00 23:00 23:26 Temperature Pulse Rate 95 H 96 H 91 H Respiratory 26 H 28 H Rate Blood Pressure 97/63 96/63 97/63 O2 Sat by Pulse 99 98 100 Oximetry O2 Sat by Pulse Oximetry [ Assessment] 04/27/17 04/27/17 04/28/17 23:29 23:50 00:00 Temperature 99.7 F H Pulse Rate 92 H Respiratory 28 H Rate Blood Pressure 91/52 O2 Sat by Pulse 95 Oximetry O2 Sat by Pulse 100 Oximetry [ Assessment] 04/28/17 04/28/17 04/28/17 01:00 02:00 03:00 Temperature Pulse Rate 94 H 96 H 97 H Respiratory 27 H 24 21 Rate Blood Pressure 96/59 99/52 101/63 O2 Sat by Pulse 96 96 95 Oximetry O2 Sat by Pulse Oximetry [ Assessment] 04/28/17 04/28/17 04/28/17 04:00 05:00 06:00 Temperature 99.6 F Pulse Rate 96 H 90 96 H Respiratory 26 H 25 H 25 H Rate Blood Pressure 93/51 89/59 95/55 O2 Sat by Pulse 95 97 Oximetry O2 Sat by Pulse Oximetry [ Assessment] 04/28/17 04/28/17 07:00 08:00 Temperature 98.7 F Pulse Rate 104 H 91 H Respiratory 28 H 28 H Rate Blood Pressure 93/52 90/49 O2 Sat by Pulse 95 98 Oximetry O2 Sat by Pulse Oximetry [ Assessment] Constitutional: comatose Eyes: non-icteric ENT: oropharynx moist, other (orally intubated and not sedated.) Neck: supple Effort: normal Ascultation: Bilateral: clear, diminished breath sounds ( ) Percussion: Bilateral: not dull Cardiovascular: regular rate and rhythm (no mrg) Gastrointestinal: normoactive bowel sounds, soft, non-tender, non-distended, other (mild distention) Integumentary: normal, other (multiple tattoos) Extremities: no cyanosis, no edema, pink and warm Neurologic: other (comatose, flaccid extremities, good cough w/ suction) Psychiatric: other (unable to assess) CBC and BMP: 04/27/17 05:40 04/27/17 05:40 ABG, PT/INR, D-dimer: ABG POC ABG pH 7.516 (7.35-7.45) H 04/19/17 06:50 POC ABG pCO2 28.0 (35-45) L 04/19/17 06:50 POC ABG pO2 81 (80-105) 04/19/17 06:50 POC ABG HCO3 22.7 04/19/17 06:50 POC ABG Total CO2 24 04/19/17 06:50 POC ABG O2 Sat 97 04/19/17 06:50 PT/INR, D-dimer PT 14.9 Sec. (12.2-14.9) 04/10/17 04:16 INR 1.11 (0.87-1.13) 04/10/17 04:16 Abnormal lab findings: Abnormal Labs 03/29/17 03/29/17 03/29/17 11:35 11:35 11:40 WBC RBC Hgb Hct MCV 98 H MCH 33 H Plt Count Lymph % (Auto) Eos % (Auto) Baso % (Auto) Lymph # Baso # Seg Neutrophils % Lymphocytes % (Manual) Monocytes % (Manual) 9.0 H Nucleated RBC % 1.0 H Seg Neutrophils # Seg Neutrophils # Man Monocytes # (Manual) 0.9 H PT 15.8 H INR 1.20 H Activated Clotting Time POC ABG pH POC ABG pCO2 POC ABG pO2 Sodium Potassium 2.7 L* Chloride 95.3 L Carbon Dioxide 17 L BUN Creatinine Glucose 435 H POC Glucose Calcium Magnesium Direct Bilirubin AST ALT Alkaline Phosphatase Total Creatine Kinase CK-MB (CK-2) CK-MB (CK-2) Rel Index Troponin T C-Reactive Protein Total Protein 6.1 L Albumin 3.5 L Triglycerides Ur Specific [place] Urine WBC (Auto) Miscellaneous Test 03/29/17 03/29/17 03/29/17 12:34 13:10 13:25 WBC RBC Hgb Hct MCV MCH Plt Count Lymph % (Auto) Eos % (Auto) Baso % (Auto) Lymph # Baso # Seg Neutrophils % Lymphocytes % (Manual) Monocytes % (Manual) Nucleated RBC % Seg Neutrophils # Seg Neutrophils # Man Monocytes # (Manual) PT INR Activated Clotting Time 142 H 169 H 175 H POC ABG pH POC ABG pCO2 POC ABG pO2 Sodium Potassium Chloride Carbon Dioxide BUN Creatinine Glucose POC Glucose Calcium Magnesium Direct Bilirubin AST ALT Alkaline Phosphatase Total Creatine Kinase CK-MB (CK-2) CK-MB (CK-2) Rel Index Troponin T C-Reactive Protein Total Protein Albumin Triglycerides Ur Specific [place] Urine WBC (Auto) Miscellaneous Test 03/29/17 03/29/17 03/29/17 14:50 15:18 19:52 WBC RBC Hgb Hct MCV MCH Plt Count Lymph % (Auto) Eos % (Auto) Baso % (Auto) Lymph # Baso # Seg Neutrophils % Lymphocytes % (Manual) Monocytes % (Manual) Nucleated RBC % Seg Neutrophils # Seg Neutrophils # Man Monocytes # (Manual) PT INR Activated Clotting Time 175 H POC ABG pH 7.293 L POC ABG pCO2 POC ABG pO2 602 H Sodium Potassium Chloride Carbon Dioxide BUN Creatinine Glucose POC Glucose Calcium Magnesium Direct Bilirubin AST ALT Alkaline Phosphatase Total Creatine Kinase 7263 H CK-MB (CK-2) > 300.0 H CK-MB (CK-2) Rel Index 4.1 H Troponin T 8.080 H* D C-Reactive Protein Total Protein Albumin Triglycerides 195 H Ur Specific [place] Urine WBC (Auto) Miscellaneous Test 03/30/17 03/30/17 03/30/17 03:50 03:50 06:19 WBC 19.5 H RBC Hgb Hct MCV MCH Plt Count Lymph % (Auto) Eos % (Auto) Baso % (Auto) Lymph # Baso # Seg Neutrophils % Lymphocytes % (Manual) 7.0 L Monocytes % (Manual) Nucleated RBC % Seg Neutrophils # Seg Neutrophils # Man 12.7 H Monocytes # (Manual) 1.4 H PT INR Activated Clotting Time POC ABG pH POC ABG pCO2 28.2 L POC ABG pO2 108 H Sodium Potassium Chloride 108.9 H Carbon Dioxide 15 L BUN 25 H Creatinine Glucose 158 H POC Glucose Calcium 8.1 L Magnesium Direct Bilirubin AST ALT Alkaline Phosphatase Total Creatine Kinase 7963 H CK-MB (CK-2) > 300.0 H CK-MB (CK-2) Rel Index Troponin T 6.850 H* C-Reactive Protein Total Protein Albumin Triglycerides Ur Specific [place] Urine WBC (Auto) Miscellaneous Test 03/30/17 03/30/17 03/31/17 09:45 16:04 02:19 WBC RBC Hgb Hct MCV MCH Plt Count Lymph % (Auto) Eos % (Auto) Baso % (Auto) Lymph # Baso # Seg Neutrophils % Lymphocytes % (Manual) Monocytes % (Manual) Nucleated RBC % Seg Neutrophils # Seg Neutrophils # Man Monocytes # (Manual) PT INR Activated Clotting Time POC ABG pH POC ABG pCO2 POC ABG pO2 Sodium Potassium Chloride Carbon Dioxide BUN Creatinine Glucose POC Glucose 137 H Calcium Magnesium Direct Bilirubin AST ALT Alkaline Phosphatase Total Creatine Kinase CK-MB (CK-2) CK-MB (CK-2) Rel Index Troponin T C-Reactive Protein 21.80 H Total Protein Albumin Triglycerides Ur Specific [place] 1.031 H Urine WBC (Auto) Miscellaneous Test 03/31/17 03/31/17 03/31/17 03:57 06:54 09:22 WBC RBC Hgb Hct MCV MCH Plt Count Lymph % (Auto) Eos % (Auto) Baso % (Auto) Lymph # Baso # Seg Neutrophils % Lymphocytes % (Manual) Monocytes % (Manual) Nucleated RBC % Seg Neutrophils # Seg Neutrophils # Man Monocytes # (Manual) PT INR Activated Clotting Time POC ABG pH 7.475 H POC ABG pCO2 25.4 L POC ABG pO2 62 L Sodium Potassium Chloride Carbon Dioxide 19 L BUN 22 H Creatinine 0.6 L Glucose 148 H POC Glucose 143 H Calcium 8.3 L Magnesium Direct Bilirubin AST ALT Alkaline Phosphatase Total Creatine Kinase CK-MB (CK-2) CK-MB (CK-2) Rel Index Troponin T C-Reactive Protein Total Protein Albumin Triglycerides Ur Specific [place] Urine WBC (Auto) Miscellaneous Test 03/31/17 03/31/17 03/31/17 11:40 17:47 23:38 WBC RBC Hgb Hct MCV MCH Plt Count Lymph % (Auto) Eos % (Auto) Baso % (Auto) Lymph # Baso # Seg Neutrophils % Lymphocytes % (Manual) Monocytes % (Manual) Nucleated RBC % Seg Neutrophils # Seg Neutrophils # Man Monocytes # (Manual) PT INR Activated Clotting Time POC ABG pH POC ABG pCO2 POC ABG pO2 Sodium Potassium Chloride Carbon Dioxide BUN Creatinine Glucose POC Glucose 127 H 137 H 148 H Calcium Magnesium Direct Bilirubin AST ALT Alkaline Phosphatase Total Creatine Kinase CK-MB (CK-2) CK-MB (CK-2) Rel Index Troponin T C-Reactive Protein Total Protein Albumin Triglycerides Ur Specific [place] Urine WBC (Auto) Miscellaneous Test 04/01/17 04/01/17 04/01/17 04:29 05:01 11:54 WBC RBC Hgb Hct MCV MCH Plt Count Lymph % (Auto) Eos % (Auto) Baso % (Auto) Lymph # Baso # Seg Neutrophils % Lymphocytes % (Manual) Monocytes % (Manual) Nucleated RBC % Seg Neutrophils # Seg Neutrophils # Man Monocytes # (Manual) PT INR Activated Clotting Time POC ABG pH 7.513 H POC ABG pCO2 22.1 L POC ABG pO2 64 L Sodium Potassium Chloride Carbon Dioxide BUN Creatinine Glucose POC Glucose 121 H Calcium Magnesium Direct Bilirubin AST ALT Alkaline Phosphatase Total Creatine Kinase CK-MB (CK-2) CK-MB (CK-2) Rel Index Troponin T C-Reactive Protein Total Protein Albumin Triglycerides 151 H Ur Specific [place] Urine WBC (Auto) Miscellaneous Test 04/01/17 04/02/17 04/02/17 18:17 00:11 04:52 WBC RBC Hgb Hct MCV MCH Plt Count Lymph % (Auto) Eos % (Auto) Baso % (Auto) Lymph # Baso # Seg Neutrophils % Lymphocytes % (Manual) Monocytes % (Manual) Nucleated RBC % Seg Neutrophils # Seg Neutrophils # Man Monocytes # (Manual) PT INR Activated Clotting Time POC ABG pH 7.524 H POC ABG pCO2 25.5 L POC ABG pO2 66 L Sodium Potassium Chloride Carbon Dioxide BUN Creatinine Glucose POC Glucose 117 H 122 H Calcium Magnesium Direct Bilirubin AST ALT Alkaline Phosphatase Total Creatine Kinase CK-MB (CK-2) CK-MB (CK-2) Rel Index Troponin T C-Reactive Protein Total Protein Albumin Triglycerides Ur Specific [place] Urine WBC (Auto) Miscellaneous Test 04/02/17 04/02/17 04/02/17 05:18 10:41 12:19 WBC RBC Hgb Hct MCV MCH Plt Count Lymph % (Auto) Eos % (Auto) Baso % (Auto) Lymph # Baso # Seg Neutrophils % Lymphocytes % (Manual) Monocytes % (Manual) Nucleated RBC % Seg Neutrophils # Seg Neutrophils # Man Monocytes # (Manual) PT INR Activated Clotting Time POC ABG pH 7.534 H POC ABG pCO2 27.4 L POC ABG pO2 Sodium Potassium Chloride Carbon Dioxide BUN Creatinine Glucose POC Glucose 132 H 129 H Calcium Magnesium Direct Bilirubin AST ALT Alkaline Phosphatase Total Creatine Kinase CK-MB (CK-2) CK-MB (CK-2) Rel Index Troponin T C-Reactive Protein Total Protein Albumin Triglycerides Ur Specific [place] Urine WBC (Auto) Miscellaneous Test 04/02/17 04/03/17 04/03/17 18:05 00:08 05:09 WBC RBC Hgb Hct MCV MCH Plt Count Lymph % (Auto) Eos % (Auto) Baso % (Auto) Lymph # Baso # Seg Neutrophils % Lymphocytes % (Manual) Monocytes % (Manual) Nucleated RBC % Seg Neutrophils # Seg Neutrophils # Man Monocytes # (Manual) PT INR Activated Clotting Time POC ABG pH 7.455 H POC ABG pCO2 33.2 L POC ABG pO2 120 H Sodium Potassium Chloride Carbon Dioxide BUN Creatinine Glucose POC Glucose 136 H 128 H Calcium Magnesium Direct Bilirubin AST ALT Alkaline Phosphatase Total Creatine Kinase CK-MB (CK-2) CK-MB (CK-2) Rel Index Troponin T C-Reactive Protein Total Protein Albumin Triglycerides Ur Specific [place] Urine WBC (Auto) Miscellaneous Test 04/03/17 04/03/17 04/03/17 06:32 11:54 12:16 WBC 11.9 H RBC Hgb Hct MCV MCH Plt Count 125 L Lymph % (Auto) 4.8 L Eos % (Auto) Baso % (Auto) Lymph # 0.6 L Baso # Seg Neutrophils % 86.7 H Lymphocytes % (Manual) Monocytes % (Manual) Nucleated RBC % Seg Neutrophils # 10.3 H Seg Neutrophils # Man Monocytes # (Manual) PT INR Activated Clotting Time POC ABG pH POC ABG pCO2 POC ABG pO2 Sodium Potassium Chloride Carbon Dioxide BUN Creatinine Glucose POC Glucose 138 H 143 H Calcium Magnesium Direct Bilirubin AST ALT Alkaline Phosphatase Total Creatine Kinase CK-MB (CK-2) CK-MB (CK-2) Rel Index Troponin T C-Reactive Protein Total Protein Albumin Triglycerides Ur Specific [place] Urine WBC (Auto) Miscellaneous Test 04/03/17 04/03/17 04/04/17 17:33 23:59 04:34 WBC RBC Hgb Hct MCV MCH Plt Count Lymph % (Auto) Eos % (Auto) Baso % (Auto) Lymph # Baso # Seg Neutrophils % Lymphocytes % (Manual) Monocytes % (Manual) Nucleated RBC % Seg Neutrophils # Seg Neutrophils # Man Monocytes # (Manual) PT INR Activated Clotting Time POC ABG pH 7.457 H POC ABG pCO2 29.8 L POC ABG pO2 76 L Sodium Potassium Chloride Carbon Dioxide BUN Creatinine Glucose POC Glucose 130 H 155 H Calcium Magnesium Direct Bilirubin AST ALT Alkaline Phosphatase Total Creatine Kinase CK-MB (CK-2) CK-MB (CK-2) Rel Index Troponin T C-Reactive Protein Total Protein Albumin Triglycerides Ur Specific [place] Urine WBC (Auto) Miscellaneous Test 04/04/17 04/04/17 04/04/17 05:27 12:22 18:18 WBC RBC Hgb Hct MCV MCH Plt Count Lymph % (Auto) Eos % (Auto) Baso % (Auto) Lymph # Baso # Seg Neutrophils % Lymphocytes % (Manual) Monocytes % (Manual) Nucleated RBC % Seg Neutrophils # Seg Neutrophils # Man Monocytes # (Manual) PT INR Activated Clotting Time POC ABG pH POC ABG pCO2 POC ABG pO2 Sodium Potassium Chloride Carbon Dioxide BUN Creatinine Glucose POC Glucose 164 H 146 H 130 H Calcium Magnesium Direct Bilirubin AST ALT Alkaline Phosphatase Total Creatine Kinase CK-MB (CK-2) CK-MB (CK-2) Rel Index Troponin T C-Reactive Protein Total Protein Albumin Triglycerides Ur Specific [place] Urine WBC (Auto) Miscellaneous Test 04/05/17 04/05/17 04/05/17 04:43 05:28 11:36 WBC RBC Hgb Hct MCV MCH Plt Count Lymph % (Auto) Eos % (Auto) Baso % (Auto) Lymph # Baso # Seg Neutrophils % Lymphocytes % (Manual) Monocytes % (Manual) Nucleated RBC % Seg Neutrophils # Seg Neutrophils # Man Monocytes # (Manual) PT INR Activated Clotting Time POC ABG pH 7.479 H POC ABG pCO2 33.5 L POC ABG pO2 76 L Sodium Potassium Chloride Carbon Dioxide BUN Creatinine Glucose POC Glucose 145 H 136 H Calcium Magnesium Direct Bilirubin AST ALT Alkaline Phosphatase Total Creatine Kinase CK-MB (CK-2) CK-MB (CK-2) Rel Index Troponin T C-Reactive Protein Total Protein Albumin Triglycerides Ur Specific [place] Urine WBC (Auto) Miscellaneous Test 04/05/17 04/06/17 04/06/17 17:58 00:16 05:26 WBC RBC Hgb Hct MCV MCH Plt Count Lymph % (Auto) Eos % (Auto) Baso % (Auto) Lymph # Baso # Seg Neutrophils % Lymphocytes % (Manual) Monocytes % (Manual) Nucleated RBC % Seg Neutrophils # Seg Neutrophils # Man Monocytes # (Manual) PT INR Activated Clotting Time POC ABG pH POC ABG pCO2 POC ABG pO2 Sodium Potassium Chloride Carbon Dioxide BUN Creatinine Glucose POC Glucose 130 H 159 H 146 H Calcium Magnesium Direct Bilirubin AST ALT Alkaline Phosphatase Total Creatine Kinase CK-MB (CK-2) CK-MB (CK-2) Rel Index Troponin T C-Reactive Protein Total Protein Albumin Triglycerides Ur Specific [place] Urine WBC (Auto) Miscellaneous Test 04/06/17 04/06/17 04/07/17 13:11 16:54 11:45 WBC RBC Hgb Hct MCV MCH Plt Count Lymph % (Auto) Eos % (Auto) Baso % (Auto) Lymph # Baso # Seg Neutrophils % Lymphocytes % (Manual) Monocytes % (Manual) Nucleated RBC % Seg Neutrophils # Seg Neutrophils # Man Monocytes # (Manual) PT INR Activated Clotting Time POC ABG pH 7.517 H POC ABG pCO2 32.1 L POC ABG pO2 Sodium Potassium Chloride Carbon Dioxide BUN Creatinine Glucose POC Glucose 132 H 123 H Calcium Magnesium Direct Bilirubin AST ALT Alkaline Phosphatase Total Creatine Kinase CK-MB (CK-2) CK-MB (CK-2) Rel Index Troponin T C-Reactive Protein Total Protein Albumin Triglycerides Ur Specific [place] Urine WBC (Auto) Miscellaneous Test 04/07/17 04/07/17 04/07/17 12:51 17:40 23:55 WBC RBC Hgb Hct MCV MCH Plt Count Lymph % (Auto) Eos % (Auto) Baso % (Auto) Lymph # Baso # Seg Neutrophils % Lymphocytes % (Manual) Monocytes % (Manual) Nucleated RBC % Seg Neutrophils # Seg Neutrophils # Man Monocytes # (Manual) PT INR Activated Clotting Time POC ABG pH POC ABG pCO2 POC ABG pO2 Sodium Potassium Chloride Carbon Dioxide BUN Creatinine Glucose POC Glucose 138 H 154 H 143 H Calcium Magnesium Direct Bilirubin AST ALT Alkaline Phosphatase Total Creatine Kinase CK-MB (CK-2) CK-MB (CK-2) Rel Index Troponin T C-Reactive Protein Total Protein Albumin Triglycerides Ur Specific [place] Urine WBC (Auto) Miscellaneous Test 04/08/17 04/08/17 04/08/17 05:27 11:14 17:44 WBC RBC Hgb Hct MCV MCH Plt Count Lymph % (Auto) Eos % (Auto) Baso % (Auto) Lymph # Baso # Seg Neutrophils % Lymphocytes % (Manual) Monocytes % (Manual) Nucleated RBC % Seg Neutrophils # Seg Neutrophils # Man Monocytes # (Manual) PT INR Activated Clotting Time POC ABG pH POC ABG pCO2 POC ABG pO2 Sodium Potassium Chloride Carbon Dioxide BUN Creatinine Glucose POC Glucose 142 H 153 H 129 H Calcium Magnesium Direct Bilirubin AST ALT Alkaline Phosphatase Total Creatine Kinase CK-MB (CK-2) CK-MB (CK-2) Rel Index Troponin T C-Reactive Protein Total Protein Albumin Triglycerides Ur Specific [place] Urine WBC (Auto) Miscellaneous Test 04/09/17 04/09/17 04/09/17 08:20 11:21 17:37 WBC RBC Hgb Hct MCV MCH Plt Count Lymph % (Auto) Eos % (Auto) Baso % (Auto) Lymph # Baso # Seg Neutrophils % Lymphocytes % (Manual) Monocytes % (Manual) Nucleated RBC % Seg Neutrophils # Seg Neutrophils # Man Monocytes # (Manual) PT INR Activated Clotting Time POC ABG pH POC ABG pCO2 POC ABG pO2 Sodium 147 H Potassium Chloride 108.8 H Carbon Dioxide BUN 39 H Creatinine 0.5 L Glucose 138 H POC Glucose 152 H 109 H Calcium Magnesium Direct Bilirubin AST ALT Alkaline Phosphatase Total Creatine Kinase CK-MB (CK-2) CK-MB (CK-2) Rel Index Troponin T C-Reactive Protein Total Protein Albumin Triglycerides Ur Specific [place] Urine WBC (Auto) Miscellaneous Test 04/10/17 04/10/17 04/10/17 00:13 04:16 04:16 WBC RBC Hgb 11.5 L Hct MCV 96 H MCH Plt Count 103 L Lymph % (Auto) 11.1 L Eos % (Auto) Baso % (Auto) Lymph # Baso # Seg Neutrophils % 81.5 H Lymphocytes % (Manual) Monocytes % (Manual) Nucleated RBC % Seg Neutrophils # 8.8 H Seg Neutrophils # Man Monocytes # (Manual) PT INR Activated Clotting Time POC ABG pH POC ABG pCO2 POC ABG pO2 Sodium 148 H Potassium Chloride 109.0 H Carbon Dioxide BUN 36 H Creatinine 0.5 L Glucose 131 H POC Glucose 127 H Calcium 8.1 L Magnesium 2.40 H Direct Bilirubin AST 206 H ALT 228 H Alkaline Phosphatase 178 H Total Creatine Kinase CK-MB (CK-2) CK-MB (CK-2) Rel Index Troponin T C-Reactive Protein Total Protein Albumin 2.8 L Triglycerides Ur Specific [place] Urine WBC (Auto) Miscellaneous Test 04/10/17 04/10/17 04/10/17 06:01 11:57 18:27 WBC RBC Hgb Hct MCV MCH Plt Count Lymph % (Auto) Eos % (Auto) Baso % (Auto) Lymph # Baso # Seg Neutrophils % Lymphocytes % (Manual) Monocytes % (Manual) Nucleated RBC % Seg Neutrophils # Seg Neutrophils # Man Monocytes # (Manual) PT INR Activated Clotting Time POC ABG pH POC ABG pCO2 POC ABG pO2 Sodium Potassium Chloride Carbon Dioxide BUN Creatinine Glucose POC Glucose 108 H 154 H 130 H Calcium Magnesium Direct Bilirubin AST ALT Alkaline Phosphatase Total Creatine Kinase CK-MB (CK-2) CK-MB (CK-2) Rel Index Troponin T C-Reactive Protein Total Protein Albumin Triglycerides Ur Specific [place] Urine WBC (Auto) Miscellaneous Test 04/11/17 04/11/17 04/12/17 12:25 17:10 00:22 WBC RBC Hgb Hct MCV MCH Plt Count Lymph % (Auto) Eos % (Auto) Baso % (Auto) Lymph # Baso # Seg Neutrophils % Lymphocytes % (Manual) Monocytes % (Manual) Nucleated RBC % Seg Neutrophils # Seg Neutrophils # Man Monocytes # (Manual) PT INR Activated Clotting Time POC ABG pH POC ABG pCO2 POC ABG pO2 Sodium Potassium Chloride Carbon Dioxide BUN Creatinine Glucose POC Glucose 107 H 129 H 128 H Calcium Magnesium Direct Bilirubin AST ALT Alkaline Phosphatase Total Creatine Kinase CK-MB (CK-2) CK-MB (CK-2) Rel Index Troponin T C-Reactive Protein Total Protein Albumin Triglycerides Ur Specific [place] Urine WBC (Auto) Miscellaneous Test 04/12/17 04/12/17 04/12/17 05:00 11:57 17:47 WBC RBC Hgb Hct MCV MCH Plt Count Lymph % (Auto) Eos % (Auto) Baso % (Auto) Lymph # Baso # Seg Neutrophils % Lymphocytes % (Manual) Monocytes % (Manual) Nucleated RBC % Seg Neutrophils # Seg Neutrophils # Man Monocytes # (Manual) PT INR Activated Clotting Time POC ABG pH POC ABG pCO2 POC ABG pO2 Sodium Potassium Chloride Carbon Dioxide BUN Creatinine Glucose POC Glucose 140 H 142 H Calcium Magnesium Direct Bilirubin AST 158 H ALT 184 H Alkaline Phosphatase 170 H Total Creatine Kinase CK-MB (CK-2) CK-MB (CK-2) Rel Index Troponin T C-Reactive Protein Total Protein Albumin 2.8 L Triglycerides Ur Specific [place] Urine WBC (Auto) Miscellaneous Test 04/12/17 04/12/17 04/13/17 21:36 21:36 01:37 WBC RBC Hgb Hct MCV MCH Plt Count Lymph % (Auto) Eos % (Auto) Baso % (Auto) Lymph # Baso # Seg Neutrophils % Lymphocytes % (Manual) Monocytes % (Manual) Nucleated RBC % Seg Neutrophils # Seg Neutrophils # Man Monocytes # (Manual) PT INR Activated Clotting Time POC ABG pH POC ABG pCO2 POC ABG pO2 Sodium Potassium Chloride Carbon Dioxide BUN Creatinine Glucose POC Glucose 126 H Calcium Magnesium Direct Bilirubin AST ALT Alkaline Phosphatase Total Creatine Kinase 1404 H CK-MB (CK-2) 8.0 H CK-MB (CK-2) Rel Index Troponin T 0.767 H* C-Reactive Protein Total Protein Albumin Triglycerides Ur Specific [place] Urine WBC (Auto) Miscellaneous Test 04/13/17 04/13/17 04/13/17 04:45 04:52 12:17 WBC RBC Hgb Hct MCV MCH Plt Count Lymph % (Auto) Eos % (Auto) Baso % (Auto) Lymph # Baso # Seg Neutrophils % Lymphocytes % (Manual) Monocytes % (Manual) Nucleated RBC % Seg Neutrophils # Seg Neutrophils # Man Monocytes # (Manual) PT INR Activated Clotting Time POC ABG pH POC ABG pCO2 POC ABG pO2 Sodium 148 H Potassium Chloride 112.8 H Carbon Dioxide BUN 33 H Creatinine 0.4 L Glucose 121 H POC Glucose 126 H 149 H Calcium Magnesium Direct Bilirubin AST 160 H ALT 189 H Alkaline Phosphatase 166 H Total Creatine Kinase CK-MB (CK-2) CK-MB (CK-2) Rel Index Troponin T C-Reactive Protein Total Protein Albumin 2.6 L Triglycerides Ur Specific [place] Urine WBC (Auto) Miscellaneous Test 04/13/17 04/14/17 04/14/17 17:45 00:20 00:45 WBC RBC Hgb Hct MCV MCH Plt Count Lymph % (Auto) Eos % (Auto) Baso % (Auto) Lymph # Baso # Seg Neutrophils % Lymphocytes % (Manual) Monocytes % (Manual) Nucleated RBC % Seg Neutrophils # Seg Neutrophils # Man Monocytes # (Manual) PT INR Activated Clotting Time POC ABG pH POC ABG pCO2 POC ABG pO2 Sodium Potassium Chloride Carbon Dioxide BUN Creatinine Glucose POC Glucose 130 H 144 H 144 H Calcium Magnesium Direct Bilirubin AST ALT Alkaline Phosphatase Total Creatine Kinase CK-MB (CK-2) CK-MB (CK-2) Rel Index Troponin T C-Reactive Protein Total Protein Albumin Triglycerides Ur Specific [place] Urine WBC (Auto) Miscellaneous Test 04/14/17 04/14/17 04/14/17 05:40 11:06 11:31 WBC RBC Hgb Hct MCV MCH Plt Count Lymph % (Auto) Eos % (Auto) Baso % (Auto) Lymph # Baso # Seg Neutrophils % Lymphocytes % (Manual) Monocytes % (Manual) Nucleated RBC % Seg Neutrophils # Seg Neutrophils # Man Monocytes # (Manual) PT INR Activated Clotting Time POC ABG pH POC ABG pCO2 POC ABG pO2 Sodium Potassium Chloride Carbon Dioxide BUN Creatinine Glucose POC Glucose 139 H 123 H Calcium Magnesium Direct Bilirubin AST ALT Alkaline Phosphatase Total Creatine Kinase CK-MB (CK-2) CK-MB (CK-2) Rel Index Troponin T C-Reactive Protein Total Protein Albumin Triglycerides Ur Specific [place] 1.033 H Urine WBC (Auto) > 182.0 H Miscellaneous Test 04/14/17 04/14/17 04/15/17 18:00 23:52 05:15 WBC 12.5 H RBC 3.38 L Hgb 10.6 L Hct 32.7 L MCV 97 H MCH Plt Count 107 L Lymph % (Auto) 8.7 L Eos % (Auto) Baso % (Auto) Lymph # 1.1 L Baso # Seg Neutrophils % 86.1 H Lymphocytes % (Manual) Monocytes % (Manual) Nucleated RBC % Seg Neutrophils # 10.7 H Seg Neutrophils # Man Monocytes # (Manual) PT INR Activated Clotting Time POC ABG pH POC ABG pCO2 POC ABG pO2 Sodium Potassium Chloride Carbon Dioxide BUN Creatinine Glucose POC Glucose 133 H 133 H Calcium Magnesium Direct Bilirubin AST ALT Alkaline Phosphatase Total Creatine Kinase CK-MB (CK-2) CK-MB (CK-2) Rel Index Troponin T C-Reactive Protein Total Protein Albumin Triglycerides Ur Specific [place] Urine WBC (Auto) Miscellaneous Test 04/15/17 04/15/17 04/15/17 05:15 05:25 11:50 WBC RBC Hgb Hct MCV MCH Plt Count Lymph % (Auto) Eos % (Auto) Baso % (Auto) Lymph # Baso # Seg Neutrophils % Lymphocytes % (Manual) Monocytes % (Manual) Nucleated RBC % Seg Neutrophils # Seg Neutrophils # Man Monocytes # (Manual) PT INR Activated Clotting Time POC ABG pH POC ABG pCO2 POC ABG pO2 Sodium 149 H Potassium 3.5 L Chloride 114.1 H Carbon Dioxide 21 L BUN 29 H Creatinine 0.4 L Glucose 128 H POC Glucose 133 H 107 H Calcium 8.3 L Magnesium Direct Bilirubin 0.4 H AST 149 H ALT 182 H Alkaline Phosphatase 143 H Total Creatine Kinase CK-MB (CK-2) CK-MB (CK-2) Rel Index Troponin T C-Reactive Protein Total Protein Albumin 2.5 L Triglycerides Ur Specific [place] Urine WBC (Auto) Miscellaneous Test 04/15/17 04/16/17 04/16/17 16:55 00:02 03:17 WBC RBC 3.39 L Hgb 10.5 L Hct 32.4 L MCV 96 H MCH Plt Count 106 L Lymph % (Auto) 6.7 L Eos % (Auto) Baso % (Auto) Lymph # 0.6 L Baso # Seg Neutrophils % 86.8 H Lymphocytes % (Manual) Monocytes % (Manual) Nucleated RBC % Seg Neutrophils # 8.2 H Seg Neutrophils # Man Monocytes # (Manual) PT INR Activated Clotting Time POC ABG pH POC ABG pCO2 POC ABG pO2 Sodium Potassium Chloride Carbon Dioxide BUN Creatinine Glucose POC Glucose 146 H 148 H Calcium Magnesium Direct Bilirubin AST ALT Alkaline Phosphatase Total Creatine Kinase CK-MB (CK-2) CK-MB (CK-2) Rel Index Troponin T C-Reactive Protein Total Protein Albumin Triglycerides Ur Specific [place] Urine WBC (Auto) Miscellaneous Test 04/16/17 04/16/17 04/16/17 03:17 05:19 11:13 WBC RBC Hgb Hct MCV MCH Plt Count Lymph % (Auto) Eos % (Auto) Baso % (Auto) Lymph # Baso # Seg Neutrophils % Lymphocytes % (Manual) Monocytes % (Manual) Nucleated RBC % Seg Neutrophils # Seg Neutrophils # Man Monocytes # (Manual) PT INR Activated Clotting Time POC ABG pH POC ABG pCO2 POC ABG pO2 Sodium 149 H Potassium Chloride 111.1 H Carbon Dioxide 20 L BUN 27 H Creatinine 0.3 L Glucose 156 H POC Glucose 171 H 169 H Calcium 8.3 L Magnesium Direct Bilirubin AST ALT Alkaline Phosphatase Total Creatine Kinase CK-MB (CK-2) CK-MB (CK-2) Rel Index Troponin T C-Reactive Protein Total Protein Albumin Triglycerides Ur Specific [place] Urine WBC (Auto) Miscellaneous Test 04/16/17 04/17/17 04/17/17 17:03 00:00 05:09 WBC RBC Hgb Hct MCV MCH Plt Count Lymph % (Auto) Eos % (Auto) Baso % (Auto) Lymph # Baso # Seg Neutrophils % Lymphocytes % (Manual) Monocytes % (Manual) Nucleated RBC % Seg Neutrophils # Seg Neutrophils # Man Monocytes # (Manual) PT INR Activated Clotting Time POC ABG pH POC ABG pCO2 POC ABG pO2 Sodium Potassium Chloride Carbon Dioxide BUN Creatinine Glucose POC Glucose 151 H 165 H 145 H Calcium Magnesium Direct Bilirubin AST ALT Alkaline Phosphatase Total Creatine Kinase CK-MB (CK-2) CK-MB (CK-2) Rel Index Troponin T C-Reactive Protein Total Protein Albumin Triglycerides Ur Specific [place] Urine WBC (Auto) Miscellaneous Test 04/17/17 04/17/17 04/18/17 11:38 17:47 00:01 WBC RBC Hgb Hct MCV MCH Plt Count Lymph % (Auto) Eos % (Auto) Baso % (Auto) Lymph # Baso # Seg Neutrophils % Lymphocytes % (Manual) Monocytes % (Manual) Nucleated RBC % Seg Neutrophils # Seg Neutrophils # Man Monocytes # (Manual) PT INR Activated Clotting Time POC ABG pH POC ABG pCO2 POC ABG pO2 Sodium Potassium Chloride Carbon Dioxide BUN Creatinine Glucose POC Glucose 170 H 161 H 131 H Calcium Magnesium Direct Bilirubin AST ALT Alkaline Phosphatase Total Creatine Kinase CK-MB (CK-2) CK-MB (CK-2) Rel Index Troponin T C-Reactive Protein Total Protein Albumin Triglycerides Ur Specific [place] Urine WBC (Auto) Miscellaneous Test 04/18/17 04/18/17 04/18/17 03:55 03:55 05:30 WBC RBC 3.05 L Hgb 9.8 L Hct 29.0 L MCV 95 H MCH Plt Count 113 L Lymph % (Auto) Eos % (Auto) 5.3 H Baso % (Auto) Lymph # Baso # Seg Neutrophils % 71.5 H Lymphocytes % (Manual) Monocytes % (Manual) Nucleated RBC % Seg Neutrophils # Seg Neutrophils # Man Monocytes # (Manual) PT INR Activated Clotting Time POC ABG pH 7.460 H POC ABG pCO2 30.8 L POC ABG pO2 129 H Sodium Potassium Chloride Carbon Dioxide 21 L BUN 25 H Creatinine 0.4 L Glucose 123 H POC Glucose Calcium 8.3 L Magnesium Direct Bilirubin AST ALT Alkaline Phosphatase Total Creatine Kinase CK-MB (CK-2) CK-MB (CK-2) Rel Index Troponin T C-Reactive Protein Total Protein Albumin Triglycerides Ur Specific [place] Urine WBC (Auto) Miscellaneous Test 04/18/17 04/18/17 04/19/17 17:10 23:40 04:36 WBC RBC 3.21 L Hgb 10.2 L Hct 30.4 L MCV 95 H MCH Plt Count 131 L Lymph % (Auto) 12.1 L Eos % (Auto) 4.7 H Baso % (Auto) 2.4 H Lymph # 0.9 L Baso # 0.2 H Seg Neutrophils % 75.0 H Lymphocytes % (Manual) Monocytes % (Manual) Nucleated RBC % Seg Neutrophils # Seg Neutrophils # Man Monocytes # (Manual) PT INR Activated Clotting Time POC ABG pH POC ABG pCO2 POC ABG pO2 Sodium Potassium Chloride Carbon Dioxide BUN Creatinine Glucose POC Glucose 135 H 157 H Calcium Magnesium Direct Bilirubin AST ALT Alkaline Phosphatase Total Creatine Kinase CK-MB (CK-2) CK-MB (CK-2) Rel Index Troponin T C-Reactive Protein Total Protein Albumin Triglycerides Ur Specific [place] Urine WBC (Auto) Miscellaneous Test 04/19/17 04/19/17 04/19/17 04:36 05:12 06:50 WBC RBC Hgb Hct MCV MCH Plt Count Lymph % (Auto) Eos % (Auto) Baso % (Auto) Lymph # Baso # Seg Neutrophils % Lymphocytes % (Manual) Monocytes % (Manual) Nucleated RBC % Seg Neutrophils # Seg Neutrophils # Man Monocytes # (Manual) PT INR Activated Clotting Time POC ABG pH 7.516 H POC ABG pCO2 28.0 L POC ABG pO2 Sodium Potassium Chloride Carbon Dioxide 21 L BUN 23 H Creatinine 0.2 L Glucose 137 H POC Glucose 131 H Calcium 7.9 L Magnesium Direct Bilirubin AST ALT Alkaline Phosphatase Total Creatine Kinase CK-MB (CK-2) CK-MB (CK-2) Rel Index Troponin T C-Reactive Protein Total Protein Albumin Triglycerides Ur Specific [place] Urine WBC (Auto) Miscellaneous Test 04/19/17 04/19/17 04/20/17 12:36 17:42 00:12 WBC RBC Hgb Hct MCV MCH Plt Count Lymph % (Auto) Eos % (Auto) Baso % (Auto) Lymph # Baso # Seg Neutrophils % Lymphocytes % (Manual) Monocytes % (Manual) Nucleated RBC % Seg Neutrophils # Seg Neutrophils # Man Monocytes # (Manual) PT INR Activated Clotting Time POC ABG pH POC ABG pCO2 POC ABG pO2 Sodium Potassium Chloride Carbon Dioxide BUN Creatinine Glucose POC Glucose 128 H 140 H 132 H Calcium Magnesium Direct Bilirubin AST ALT Alkaline Phosphatase Total Creatine Kinase CK-MB (CK-2) CK-MB (CK-2) Rel Index Troponin T C-Reactive Protein Total Protein Albumin Triglycerides Ur Specific [place] Urine WBC (Auto) Miscellaneous Test 04/20/17 04/20/17 04/20/17 03:35 03:35 05:10 WBC RBC 3.34 L Hgb 10.4 L Hct 31.6 L MCV 95 H MCH Plt Count Lymph % (Auto) 12.9 L Eos % (Auto) Baso % (Auto) Lymph # Baso # Seg Neutrophils % 77.3 H Lymphocytes % (Manual) Monocytes % (Manual) Nucleated RBC % Seg Neutrophils # Seg Neutrophils # Man Monocytes # (Manual) PT INR Activated Clotting Time POC ABG pH POC ABG pCO2 POC ABG pO2 Sodium Potassium Chloride Carbon Dioxide BUN Creatinine 0.3 L Glucose 155 H POC Glucose 135 H Calcium 7.8 L Magnesium Direct Bilirubin AST ALT Alkaline Phosphatase Total Creatine Kinase CK-MB (CK-2) CK-MB (CK-2) Rel Index Troponin T C-Reactive Protein Total Protein Albumin Triglycerides Ur Specific [place] Urine WBC (Auto) Miscellaneous Test 04/20/17 04/20/17 04/21/17 12:49 18:21 00:05 WBC RBC Hgb Hct MCV MCH Plt Count Lymph % (Auto) Eos % (Auto) Baso % (Auto) Lymph # Baso # Seg Neutrophils % Lymphocytes % (Manual) Monocytes % (Manual) Nucleated RBC % Seg Neutrophils # Seg Neutrophils # Man Monocytes # (Manual) PT INR Activated Clotting Time POC ABG pH POC ABG pCO2 POC ABG pO2 Sodium Potassium Chloride Carbon Dioxide BUN Creatinine Glucose POC Glucose 155 H 165 H 141 H Calcium Magnesium Direct Bilirubin AST ALT Alkaline Phosphatase Total Creatine Kinase CK-MB (CK-2) CK-MB (CK-2) Rel Index Troponin T C-Reactive Protein Total Protein Albumin Triglycerides Ur Specific [place] Urine WBC (Auto) Miscellaneous Test 04/21/17 04/21/17 04/21/17 06:00 12:11 17:04 WBC RBC Hgb Hct MCV MCH Plt Count Lymph % (Auto) Eos % (Auto) Baso % (Auto) Lymph # Baso # Seg Neutrophils % Lymphocytes % (Manual) Monocytes % (Manual) Nucleated RBC % Seg Neutrophils # Seg Neutrophils # Man Monocytes # (Manual) PT INR Activated Clotting Time POC ABG pH POC ABG pCO2 POC ABG pO2 Sodium Potassium Chloride Carbon Dioxide BUN Creatinine Glucose POC Glucose 152 H 165 H 156 H Calcium Magnesium Direct Bilirubin AST ALT Alkaline Phosphatase Total Creatine Kinase CK-MB (CK-2) CK-MB (CK-2) Rel Index Troponin T C-Reactive Protein Total Protein Albumin Triglycerides Ur Specific [place] Urine WBC (Auto) Miscellaneous Test 04/21/17 04/21/17 04/22/17 22:00 23:59 05:49 WBC RBC Hgb Hct MCV MCH Plt Count Lymph % (Auto) Eos % (Auto) Baso % (Auto) Lymph # Baso # Seg Neutrophils % Lymphocytes % (Manual) Monocytes % (Manual) Nucleated RBC % Seg Neutrophils # Seg Neutrophils # Man Monocytes # (Manual) PT INR Activated Clotting Time POC ABG pH POC ABG pCO2 POC ABG pO2 Sodium Potassium Chloride Carbon Dioxide BUN Creatinine Glucose POC Glucose 166 H 173 H Calcium Magnesium Direct Bilirubin AST ALT Alkaline Phosphatase Total Creatine Kinase CK-MB (CK-2) CK-MB (CK-2) Rel Index Troponin T C-Reactive Protein Total Protein Albumin Triglycerides Ur Specific [place] Urine WBC (Auto) 10.0 H Miscellaneous Test 04/22/17 04/22/17 04/23/17 11:11 18:04 00:37 WBC RBC Hgb Hct MCV MCH Plt Count Lymph % (Auto) Eos % (Auto) Baso % (Auto) Lymph # Baso # Seg Neutrophils % Lymphocytes % (Manual) Monocytes % (Manual) Nucleated RBC % Seg Neutrophils # Seg Neutrophils # Man Monocytes # (Manual) PT INR Activated Clotting Time POC ABG pH POC ABG pCO2 POC ABG pO2 Sodium Potassium Chloride Carbon Dioxide BUN Creatinine Glucose POC Glucose 172 H 140 H 135 H Calcium Magnesium Direct Bilirubin AST ALT Alkaline Phosphatase Total Creatine Kinase CK-MB (CK-2) CK-MB (CK-2) Rel Index Troponin T C-Reactive Protein Total Protein Albumin Triglycerides Ur Specific [place] Urine WBC (Auto) Miscellaneous Test 04/23/17 04/23/17 04/23/17 05:33 06:20 11:10 WBC RBC 3.19 L Hgb 9.9 L Hct 30.0 L MCV MCH Plt Count Lymph % (Auto) 8.0 L Eos % (Auto) Baso % (Auto) Lymph # 0.8 L Baso # Seg Neutrophils % 84.5 H Lymphocytes % (Manual) Monocytes % (Manual) Nucleated RBC % Seg Neutrophils # 8.2 H Seg Neutrophils # Man Monocytes # (Manual) PT INR Activated Clotting Time POC ABG pH POC ABG pCO2 POC ABG pO2 Sodium Potassium Chloride Carbon Dioxide BUN Creatinine Glucose POC Glucose 134 H 134 H Calcium Magnesium Direct Bilirubin AST ALT Alkaline Phosphatase Total Creatine Kinase CK-MB (CK-2) CK-MB (CK-2) Rel Index Troponin T C-Reactive Protein Total Protein Albumin Triglycerides Ur Specific [place] Urine WBC (Auto) Miscellaneous Test 04/23/17 04/24/17 04/24/17 17:26 00:53 06:46 WBC RBC Hgb Hct MCV MCH Plt Count Lymph % (Auto) Eos % (Auto) Baso % (Auto) Lymph # Baso # Seg Neutrophils % Lymphocytes % (Manual) Monocytes % (Manual) Nucleated RBC % Seg Neutrophils # Seg Neutrophils # Man Monocytes # (Manual) PT INR Activated Clotting Time POC ABG pH POC ABG pCO2 POC ABG pO2 Sodium Potassium Chloride Carbon Dioxide BUN Creatinine Glucose POC Glucose 164 H 146 H 125 H Calcium Magnesium Direct Bilirubin AST ALT Alkaline Phosphatase Total Creatine Kinase CK-MB (CK-2) CK-MB (CK-2) Rel Index Troponin T C-Reactive Protein Total Protein Albumin Triglycerides Ur Specific [place] Urine WBC (Auto) Miscellaneous Test 04/24/17 04/24/17 04/24/17 11:55 17:50 23:36 WBC RBC Hgb Hct MCV MCH Plt Count Lymph % (Auto) Eos % (Auto) Baso % (Auto) Lymph # Baso # Seg Neutrophils % Lymphocytes % (Manual) Monocytes % (Manual) Nucleated RBC % Seg Neutrophils # Seg Neutrophils # Man Monocytes # (Manual) PT INR Activated Clotting Time POC ABG pH POC ABG pCO2 POC ABG pO2 Sodium Potassium Chloride Carbon Dioxide BUN Creatinine Glucose POC Glucose 156 H 146 H 131 H Calcium Magnesium Direct Bilirubin AST ALT Alkaline Phosphatase Total Creatine Kinase CK-MB (CK-2) CK-MB (CK-2) Rel Index Troponin T C-Reactive Protein Total Protein Albumin Triglycerides Ur Specific [place] Urine WBC (Auto) Miscellaneous Test 04/25/17 04/25/17 04/25/17 04:51 05:16 07:07 WBC RBC Hgb Hct MCV MCH Plt Count Lymph % (Auto) Eos % (Auto) Baso % (Auto) Lymph # Baso # Seg Neutrophils % Lymphocytes % (Manual) Monocytes % (Manual) Nucleated RBC % Seg Neutrophils # Seg Neutrophils # Man Monocytes # (Manual) PT INR Activated Clotting Time POC ABG pH POC ABG pCO2 POC ABG pO2 Sodium Potassium Chloride Carbon Dioxide BUN Creatinine Glucose POC Glucose 139 H Calcium Magnesium Direct Bilirubin AST 105 H ALT 204 H Alkaline Phosphatase 189 H Total Creatine Kinase CK-MB (CK-2) CK-MB (CK-2) Rel Index Troponin T C-Reactive Protein Total Protein Albumin 2.4 L Triglycerides Ur Specific [place] Urine WBC (Auto) Miscellaneous Test Flexitest 1 H 04/25/17 04/25/17 04/25/17 12:29 17:23 23:32 WBC RBC Hgb Hct MCV MCH Plt Count Lymph % (Auto) Eos % (Auto) Baso % (Auto) Lymph # Baso # Seg Neutrophils % Lymphocytes % (Manual) Monocytes % (Manual) Nucleated RBC % Seg Neutrophils # Seg Neutrophils # Man Monocytes # (Manual) PT INR Activated Clotting Time POC ABG pH POC ABG pCO2 POC ABG pO2 Sodium Potassium Chloride Carbon Dioxide BUN Creatinine Glucose POC Glucose 132 H 133 H 128 H Calcium Magnesium Direct Bilirubin AST ALT Alkaline Phosphatase Total Creatine Kinase CK-MB (CK-2) CK-MB (CK-2) Rel Index Troponin T C-Reactive Protein Total Protein Albumin Triglycerides Ur Specific [place] Urine WBC (Auto) Miscellaneous Test 04/26/17 04/26/17 04/26/17 05:24 11:28 17:09 WBC RBC Hgb Hct MCV MCH Plt Count Lymph % (Auto) Eos % (Auto) Baso % (Auto) Lymph # Baso # Seg Neutrophils % Lymphocytes % (Manual) Monocytes % (Manual) Nucleated RBC % Seg Neutrophils # Seg Neutrophils # Man Monocytes # (Manual) PT INR Activated Clotting Time POC ABG pH POC ABG pCO2 POC ABG pO2 Sodium Potassium Chloride Carbon Dioxide BUN Creatinine Glucose POC Glucose 132 H 146 H 141 H Calcium Magnesium Direct Bilirubin AST ALT Alkaline Phosphatase Total Creatine Kinase CK-MB (CK-2) CK-MB (CK-2) Rel Index Troponin T C-Reactive Protein Total Protein Albumin Triglycerides Ur Specific [place] Urine WBC (Auto) Miscellaneous Test 04/26/17 04/27/17 04/27/17 23:52 05:40 05:40 WBC RBC 3.22 L Hgb 10.0 L Hct 29.9 L MCV MCH Plt Count Lymph % (Auto) Eos % (Auto) Baso % (Auto) Lymph # Baso # Seg Neutrophils % 76.6 H Lymphocytes % (Manual) Monocytes % (Manual) Nucleated RBC % Seg Neutrophils # Seg Neutrophils # Man Monocytes # (Manual) PT INR Activated Clotting Time POC ABG pH POC ABG pCO2 POC ABG pO2 Sodium Potassium Chloride Carbon Dioxide BUN Creatinine Glucose POC Glucose 140 H Calcium Magnesium Direct Bilirubin AST 66 H ALT 137 H Alkaline Phosphatase 169 H Total Creatine Kinase CK-MB (CK-2) CK-MB (CK-2) Rel Index Troponin T C-Reactive Protein Total Protein 6.2 L Albumin 2.6 L Triglycerides Ur Specific [place] Urine WBC (Auto) Miscellaneous Test 04/27/17 04/27/17 04/27/17 05:40 06:10 11:13 WBC RBC Hgb Hct MCV MCH Plt Count Lymph % (Auto) Eos % (Auto) Baso % (Auto) Lymph # Baso # Seg Neutrophils % Lymphocytes % (Manual) Monocytes % (Manual) Nucleated RBC % Seg Neutrophils # Seg Neutrophils # Man Monocytes # (Manual) PT INR Activated Clotting Time POC ABG pH POC ABG pCO2 POC ABG pO2 Sodium Potassium Chloride Carbon Dioxide BUN Creatinine 0.2 L Glucose 139 H POC Glucose 130 H 151 H Calcium Magnesium Direct Bilirubin AST ALT Alkaline Phosphatase Total Creatine Kinase CK-MB (CK-2) CK-MB (CK-2) Rel Index Troponin T C-Reactive Protein Total Protein Albumin Triglycerides Ur Specific [place] Urine WBC (Auto) Miscellaneous Test 04/27/17 04/27/17 04/28/17 17:37 23:19 05:24 WBC RBC Hgb Hct MCV MCH Plt Count Lymph % (Auto) Eos % (Auto) Baso % (Auto) Lymph # Baso # Seg Neutrophils % Lymphocytes % (Manual) Monocytes % (Manual) Nucleated RBC % Seg Neutrophils # Seg Neutrophils # Man Monocytes # (Manual) PT INR Activated Clotting Time POC ABG pH POC ABG pCO2 POC ABG pO2 Sodium Potassium Chloride Carbon Dioxide BUN Creatinine Glucose POC Glucose 159 H 130 H 132 H Calcium Magnesium Direct Bilirubin AST ALT Alkaline Phosphatase Total Creatine Kinase CK-MB (CK-2) CK-MB (CK-2) Rel Index Troponin T C-Reactive Protein Total Protein Albumin Triglycerides Ur Specific [place] Urine WBC (Auto) Miscellaneous Test
[2017-04-28] MEDS ORDERED: LASIX IV NR (09:30)
[2017-04-28] MEDS: PROTONIX FEEDTUBE SCH (09:56)
[2017-04-28] MEDS: ASPIRIN PO SCH (09:56)
[2017-04-28] MEDS: PLAVIX PO SCH (09:56)
[2017-04-28] MEDS: HEPARIN SUB-Q SCH ×2 (09:56→21:57)
[2017-04-28] MEDS: COLACE FEEDTUBE SCH ×2 (09:57→21:58)
[2017-04-28] MEDS: ZESTRIL PO SCH (09:57)
--- NOTE | 2017-04-28 10:05 | Progress Note ---
Assessment and Plan Assessment and plan: Patient with V. fib arrest, anoxic encephalopathy, respiratory failure and vent dependent, status post trach and PEG, vegetative state, MRSA pneumonia Sepsis, poor prognosis, full CODE STATUS --s/p cardiac arrest ; -- anoxic encephalopathy'vegetative state, supportive care -- s/p trach and PEG; continue vent support, admitted with acute hypoxic hypercapnic respiratory failure --Acute anterior STEMI; status post PCI, cardiology following --MRSA pneumonia/aspiration pneumonia, contact isolation patient received full treatment with Zyvox --Hypertension; BP in the lower range. --Febrile illness; aspiration pneumonia; sepsis; on antibiotics ID following --Cardiogenic shock; off pressors, closely monitor --s/p trach and PEG, continue PEG feeds --Severe Protein calorie malnutrition: Peg feeds and nutrition suppliments --DVT prophylaxis; Lovenox --Full CODE STATUS Poor prognosis, family aware Rec hospice/LTAC/SNF placement Patient has multiple social issues, no payor source Plan of care discussed with the patient's nurse and case management. critical care time 31 minutes The high probability of a clinically significant, sudden or life threatening deterioration of the [Pulmonary, cardiac, neurological, renal] system(s) required my full and direct attention, intervention and personal management. The aggregate critical care time was [31] minutes. This time is in addition to time spent performing reported procedures but includes the following: [x] Data Review and interpretation [x] Patient assessment and monitoring of vital signs [x] Documentation [x] Medication orders and management History Interval history: Patient seen and examined medical records reviewed Patient remains intubated via trach on ventilatory support No new overnight events reported by nursing staff Vital signs reviewed Hospitalist Physical - Constitutional Vitals: Temp Pulse Resp BP Pulse Ox 98.7 F 95 H 26 H 96/49 97 04/28/17 08:00 04/28/17 09:57 04/28/17 09:32 04/28/17 09:57 04/28/17 09:32 General appearance: Present: no acute distress, well-nourished, other ( tracheostomy on ventilatory support) - EENT Eyes: Present: PERRL, EOM intact - Neck Neck: Present: supple, normal ROM - Respiratory Respiratory effort: normal Respiratory: bilateral: diminished, rhonchi - Cardiovascular Rhythm: regular Heart Sounds: Present: S1 & S2 - Extremities Extremities: no ischemia Extremity abnormal: edema - Abdominal General gastrointestinal: soft, non-tender, non-distended, normal bowel sounds, other (PEG tube in place) - Integumentary Integumentary: Present: clear, warm - Psychiatric Psychiatric: other (unresponsive) - Neurologic Neurologic: other (unresponsive) Results - Labs CBC & Chem 7: 04/27/17 05:40 04/27/17 05:40 Labs: Laboratory Last Values WBC 8.5 K/mm3 (4.5-11.0) 04/27/17 05:40 RBC 3.22 M/mm3 (3.65-5.03) L 04/27/17 05:40 Hgb 10.0 gm/dl (11.8-15.2) L 04/27/17 05:40 Hct 29.9 % (35.5-45.6) L 04/27/17 05:40 MCV 93 fl (84-94) 04/27/17 05:40 MCH 31 pg (28-32) 04/27/17 05:40 MCHC 33 % (32-34) 04/27/17 05:40 RDW 14.8 % (13.2-15.2) 04/27/17 05:40 Plt Count 260 K/mm3 (140-440) 04/27/17 05:40 Lymph % (Auto) 14.9 % (13.4-35.0) 04/27/17 05:40 [place] % (Auto) 6.5 % (0.0-7.3) 04/27/17 05:40 Eos % (Auto) 1.7 % (0.0-4.3) 04/27/17 05:40 Baso % (Auto) 0.3 % (0.0-1.8) 04/27/17 05:40 Lymph # 1.3 K/mm3 (1.2-5.4) 04/27/17 05:40 [place] # 0.6 K/mm3 (0.0-0.8) 04/27/17 05:40 Eos # 0.1 K/mm3 (0.0-0.4) 04/27/17 05:40 Baso # 0.0 K/mm3 (0.0-0.1) 04/27/17 05:40 Add Manual Diff Complete 03/30/17 03:50 Total Counted 100 03/30/17 03:50 Seg Neutrophils % 76.6 % (40.0-70.0) H 04/27/17 05:40 Seg Neuts % (Manual) 65.0 % (40.0-70.0) 03/30/17 03:50 Band Neutrophils % 17.0 % 03/30/17 03:50 Lymphocytes % (Manual) 7.0 % (13.4-35.0) L 03/30/17 03:50 Reactive Lymphs % (Man) 0 % 03/30/17 03:50 Monocytes % (Manual) 7.0 % (0.0-7.3) 03/30/17 03:50 Eosinophils % (Manual) 0 % (0.0-4.3) 03/30/17 03:50 Basophils % (Manual) 0 % (0.0-1.8) 03/30/17 03:50 Metamyelocytes % 4.0 % 03/30/17 03:50 Myelocytes % 0 % 03/30/17 03:50 Promyelocytes % 0 % 03/30/17 03:50 Blast Cells % 0 % 03/30/17 03:50 Nucleated RBC % Not Reportable 03/30/17 03:50 Seg Neutrophils # 6.5 K/mm3 (1.8-7.7) 04/27/17 05:40 Seg Neutrophils # Man 12.7 K/mm3 (1.8-7.7) H 03/30/17 03:50 Band Neutrophils # 3.3 K/mm3 03/30/17 03:50 Lymphocytes # (Manual) 1.4 K/mm3 (1.2-5.4) 03/30/17 03:50 Abs React Lymphs (Man) 0.0 K/mm3 03/30/17 03:50 Monocytes # (Manual) 1.4 K/mm3 (0.0-0.8) H 03/30/17 03:50 Eosinophils # (Manual) 0.0 K/mm3 (0.0-0.4) 03/30/17 03:50 Basophils # (Manual) 0.0 K/mm3 (0.0-0.1) 03/30/17 03:50 Metamyelocytes # 0.8 K/mm3 03/30/17 03:50 Myelocytes # 0.0 K/mm3 03/30/17 03:50 Promyelocytes # 0.0 K/mm3 03/30/17 03:50 Blast Cells # 0.0 K/mm3 03/30/17 03:50 WBC Morphology Not Reportable 03/30/17 03:50 Hypersegmented Neuts Not Reportable 03/30/17 03:50 Hyposegmented Neuts Not Reportable 03/30/17 03:50 Hypogranular Neuts Not Reportable 03/30/17 03:50 Smudge Cells Not Reportable 03/30/17 03:50 Toxic Granulation Not Reportable 03/30/17 03:50 Toxic Vacuolation Not Reportable 03/30/17 03:50 Dohle Bodies Not Reportable 03/30/17 03:50 Pelger-Huet Anomaly Not Reportable 03/30/17 03:50 Sherry Rods Not Reportable 03/30/17 03:50 Platelet Estimate Appears normal 03/30/17 03:50 Clumped Platelets Not Reportable 03/30/17 03:50 Plt Clumps, EDTA Not Reportable 03/30/17 03:50 Large Platelets Not Reportable 03/30/17 03:50 Giant Platelets Not Reportable 03/30/17 03:50 Platelet Satelliting Not Reportable 03/30/17 03:50 Plt Morphology Comment Not Reportable 03/30/17 03:50 RBC Morphology Not Reportable 03/30/17 03:50 Dimorphic RBCs Not Reportable 03/30/17 03:50 Polychromasia Not Reportable 03/30/17 03:50 Hypochromasia Not Reportable 03/30/17 03:50 Poikilocytosis Not Reportable 03/30/17 03:50 Anisocytosis Few 03/30/17 03:50 Microcytosis Not Reportable 03/30/17 03:50 Macrocytosis Not Reportable 03/30/17 03:50 Spherocytes Not Reportable 03/30/17 03:50 Pappenheimer Bodies Not Reportable 03/30/17 03:50 Sickle Cells Not Reportable 03/30/17 03:50 Target Cells Not Reportable 03/30/17 03:50 Tear Drop Cells Not Reportable 03/30/17 03:50 Ovalocytes Not Reportable 03/30/17 03:50 Helmet Cells Not Reportable 03/30/17 03:50 [place] Bodies Not Reportable 03/30/17 03:50 [place] Rings Not Reportable 03/30/17 03:50 Nusrat Cells Not Reportable 03/30/17 03:50 Bite Cells Not Reportable 03/30/17 03:50 Crenated Cell Not Reportable 03/30/17 03:50 Elliptocytes Not Reportable 03/30/17 03:50 Acanthocytes (Spur) Not Reportable 03/30/17 03:50 Rouleaux Not Reportable 03/30/17 03:50 Hemoglobin C Crystals Not Reportable 03/30/17 03:50 Schistocytes Not Reportable 03/30/17 03:50 Malaria parasites Not Reportable 03/30/17 03:50 Jermaine Bodies Not Reportable 03/30/17 03:50 Hem Pathologist Commnt No 03/30/17 03:50 PT 14.9 Sec. (12.2-14.9) 04/10/17 04:16 INR 1.11 (0.87-1.13) 04/10/17 04:16 APTT 27.8 Sec. (24.2-36.6) 04/10/17 04:16 Activated Clotting Time 92 (74-137) 03/29/17 17:47 POC ABG pH 7.516 (7.35-7.45) H 04/19/17 06:50 POC ABG pCO2 28.0 (35-45) L 04/19/17 06:50 POC ABG pO2 81 (80-105) 04/19/17 06:50 POC ABG HCO3 22.7 04/19/17 06:50 POC ABG Total CO2 24 04/19/17 06:50 POC ABG O2 Sat 97 04/19/17 06:50 POC ABG Base Excess 0 04/19/17 06:50 FiO2 30 % 04/19/17 06:50 Sodium 137 mmol/L (137-145) 04/27/17 05:40 Potassium 3.7 mmol/L (3.6-5.0) 04/27/17 05:40 Chloride 100.2 mmol/L (98-107) 04/27/17 05:40 Carbon Dioxide 25 mmol/L (22-30) 04/27/17 05:40 Anion Gap 16 mmol/L 04/27/17 05:40 BUN 16 mg/dL (9-20) 04/27/17 05:40 Creatinine 0.2 mg/dL (0.8-1.5) L 04/27/17 05:40 Estimated GFR > 60 ml/min 04/27/17 05:40 BUN/Creatinine Ratio 80 % 04/27/17 05:40 Glucose 139 mg/dL (75-100) H 04/27/17 05:40 POC Glucose 132 (70-105) H 04/28/17 05:24 Calcium 8.5 mg/dL (8.4-10.2) 04/27/17 05:40 Phosphorus 3.50 mg/dL (2.5-4.5) 04/13/17 04:45 Magnesium 2.10 mg/dL (1.7-2.3) 04/23/17 05:33 Total Bilirubin 0.50 mg/dL (0.1-1.2) 04/27/17 05:40 Direct Bilirubin < 0.2 mg/dL (0-0.2) 04/27/17 05:40 Indirect Bilirubin 0.3 mg/dL 04/25/17 04:51 AST 66 units/L (5-40) H 04/27/17 05:40 ALT 137 units/L (7-56) H 04/27/17 05:40 Alkaline Phosphatase 169 units/L (35-129) H 04/27/17 05:40 Total Creatine Kinase 1404 units/L (55-170) H 04/12/17 21:36 CK-MB (CK-2) 8.0 ng/mL (0.0-4.0) H 04/12/17 21:36 CK-MB (CK-2) Rel Index 0.5 (0-4) 04/12/17 21:36 Troponin T 0.767 ng/mL (0.00-0.029) H* 04/12/17 21:36 C-Reactive Protein 21.80 mg/dL (0.00-1.30) H 03/30/17 16:04 Total Protein 6.2 g/dL (6.3-8.2) L 04/27/17 05:40 Albumin 2.6 g/dL (3.9-5) L 04/27/17 05:40 Albumin/Globulin Ratio 0.7 % 04/27/17 05:40 Triglycerides 151 mg/dL (2-149) H 04/01/17 04:29 Cholesterol 164 mg/dL (50-199) 03/29/17 19:52 LDL Cholesterol Direct 81 mg/dL (50-130) 03/29/17 19:52 HDL Cholesterol 44 mg/dL (40-59) 03/29/17 19:52 Cholesterol/HDL Ratio 3.72 % 03/29/17 19:52 Urine Color [place] (Yellow) 04/21/17 22:00 Urine Turbidity Clear (Clear) 04/21/17 22:00 Urine pH 5.0 (5.0-7.0) 04/21/17 22:00 Ur Specific [place] 1.029 (1.003-1.030) 04/21/17 22:00 Urine Protein 30 mg/dl mg/dL (Negative) 04/21/17 22:00 Urine Glucose (UA) Neg mg/dL (Negative) 04/21/17 22:00 Urine Ketones Neg mg/dL (Negative) 04/21/17 22:00 Urine Blood Mod (Negative) 04/21/17 22:00 Urine Nitrite Neg (Negative) 04/21/17 22:00 Urine Bilirubin Neg (Negative) 04/21/17 22:00 Urine Urobilinogen 4.0 mg/dL (<2.0) 04/21/17 22:00 Ur Leukocyte Esterase Neg (Negative) 04/21/17 22:00 Urine WBC (Auto) 10.0 /HPF (0.0-6.0) H 04/21/17 22:00 Urine RBC (Auto) 44.0 /HPF (0.0-6.0) 04/21/17 22:00 U Epithel Cells (Auto) < 1.0 /HPF (0-13.0) 04/21/17 22:00 Amorphous Crystals 1+ 03/30/17 09:45 Urine Mucus 3+ /HPF 04/21/17 22:00 Urine Opiates Screen Presumptive negative 03/30/17 09:45 Urine Methadone Screen Presumptive negative 03/30/17 09:45 Ur Barbiturates Screen Presumptive negative 03/30/17 09:45 Ur Phencyclidine Scrn Presumptive negative 03/30/17 09:45 Ur Amphetamines Screen Presumptive positive 03/30/17 09:45 U Benzodiazepines Scrn Presumptive positive 03/30/17 09:45 Urine Cocaine Screen Presumptive negative 03/30/17 09:45 U Marijuana (THC) Screen Presumptive negative 03/30/17 09:45 Drugs of Abuse Note Disclamer 03/30/17 09:45 Miscellaneous Test Flexitest 1 H 04/25/17 07:07 Blood Type O POSITIVE 03/29/17 11:35 Antibody Screen Negative 03/29/17 11:35
[2017-04-29] MEDS: NOVOLOG SUB-Q SCH ×4 (00:21→18:05)
[2017-04-29] MEDS: LOPRESSOR PO SCH ×4 (00:21→18:05)
[2017-04-29] MEDS: MAXIPIME 2 GM in NACL 0.9% 20 ML IV SCH ×3 (05:43→22:00)
--- NOTE | 2017-04-29 08:29 | Progress Note ---
Assessment and Plan Assessment and plan: Patient with V. fib arrest, anoxic encephalopathy, respiratory failure and vent dependent, status post trach and PEG, vegetative state, MRSA pneumonia Sepsis, poor prognosis, full CODE STATUS --s/p cardiac arrest ; -- anoxic encephalopathy'vegetative state, supportive care -- s/p trach and PEG; continue vent support, admitted with acute hypoxic hypercapnic respiratory failure --Acute anterior STEMI; status post PCI, cardiology following --MRSA pneumonia/aspiration pneumonia, contact isolation patient received full treatment with Zyvox --Hypertension; BP in the lower range. --Febrile illness; aspiration pneumonia; sepsis; on antibiotics ID following --Cardiogenic shock; off pressors, closely monitor --s/p trach and PEG, continue PEG feeds --Severe Protein calorie malnutrition: Peg feeds and nutrition suppliments --DVT prophylaxis; Lovenox --Full CODE STATUS Poor prognosis, family aware Rec hospice/LTAC/SNF placement Patient has multiple social issues, no payor source Plan of care discussed with the patient's nurse and case management. History Interval history: Sincerely and evaluated medical records reviewed Clinically no change, no new events noticed by her nurse Vital signs reviewed Hospitalist Physical - Constitutional Vitals: Temp Pulse Resp BP Pulse Ox 100.1 F H 97 H 23 100/64 97 04/29/17 03:24 04/29/17 08:00 04/29/17 08:00 04/29/17 08:00 04/29/17 08:00 General appearance: Present: no acute distress, well-nourished, other ( tracheostomy on ventilatory support) - EENT Eyes: Present: PERRL, EOM intact - Neck Neck: Present: supple, normal ROM - Respiratory Respiratory effort: normal Respiratory: bilateral: diminished, rales, rhonchi - Cardiovascular Rhythm: regular Heart Sounds: Present: S1 & S2 - Extremities Extremities: no ischemia Extremity abnormal: edema - Abdominal General gastrointestinal: soft, non-tender, non-distended, normal bowel sounds, other (PEG tube in place) - Integumentary Integumentary: Present: clear, warm - Psychiatric Psychiatric: other (unresponsive) - Neurologic Neurologic: other (unresponsive) Results - Labs CBC & Chem 7: 04/27/17 05:40 04/27/17 05:40 Labs: Laboratory Last Values WBC 8.5 K/mm3 (4.5-11.0) 04/27/17 05:40 RBC 3.22 M/mm3 (3.65-5.03) L 04/27/17 05:40 Hgb 10.0 gm/dl (11.8-15.2) L 04/27/17 05:40 Hct 29.9 % (35.5-45.6) L 04/27/17 05:40 MCV 93 fl (84-94) 04/27/17 05:40 MCH 31 pg (28-32) 04/27/17 05:40 MCHC 33 % (32-34) 04/27/17 05:40 RDW 14.8 % (13.2-15.2) 04/27/17 05:40 Plt Count 260 K/mm3 (140-440) 04/27/17 05:40 Lymph % (Auto) 14.9 % (13.4-35.0) 04/27/17 05:40 [place] % (Auto) 6.5 % (0.0-7.3) 04/27/17 05:40 Eos % (Auto) 1.7 % (0.0-4.3) 04/27/17 05:40 Baso % (Auto) 0.3 % (0.0-1.8) 04/27/17 05:40 Lymph # 1.3 K/mm3 (1.2-5.4) 04/27/17 05:40 [place] # 0.6 K/mm3 (0.0-0.8) 04/27/17 05:40 Eos # 0.1 K/mm3 (0.0-0.4) 04/27/17 05:40 Baso # 0.0 K/mm3 (0.0-0.1) 04/27/17 05:40 Add Manual Diff Complete 03/30/17 03:50 Total Counted 100 03/30/17 03:50 Seg Neutrophils % 76.6 % (40.0-70.0) H 04/27/17 05:40 Seg Neuts % (Manual) 65.0 % (40.0-70.0) 03/30/17 03:50 Band Neutrophils % 17.0 % 03/30/17 03:50 Lymphocytes % (Manual) 7.0 % (13.4-35.0) L 03/30/17 03:50 Reactive Lymphs % (Man) 0 % 03/30/17 03:50 Monocytes % (Manual) 7.0 % (0.0-7.3) 03/30/17 03:50 Eosinophils % (Manual) 0 % (0.0-4.3) 03/30/17 03:50 Basophils % (Manual) 0 % (0.0-1.8) 03/30/17 03:50 Metamyelocytes % 4.0 % 03/30/17 03:50 Myelocytes % 0 % 03/30/17 03:50 Promyelocytes % 0 % 03/30/17 03:50 Blast Cells % 0 % 03/30/17 03:50 Nucleated RBC % Not Reportable 03/30/17 03:50 Seg Neutrophils # 6.5 K/mm3 (1.8-7.7) 04/27/17 05:40 Seg Neutrophils # Man 12.7 K/mm3 (1.8-7.7) H 03/30/17 03:50 Band Neutrophils # 3.3 K/mm3 03/30/17 03:50 Lymphocytes # (Manual) 1.4 K/mm3 (1.2-5.4) 03/30/17 03:50 Abs React Lymphs (Man) 0.0 K/mm3 03/30/17 03:50 Monocytes # (Manual) 1.4 K/mm3 (0.0-0.8) H 03/30/17 03:50 Eosinophils # (Manual) 0.0 K/mm3 (0.0-0.4) 03/30/17 03:50 Basophils # (Manual) 0.0 K/mm3 (0.0-0.1) 03/30/17 03:50 Metamyelocytes # 0.8 K/mm3 03/30/17 03:50 Myelocytes # 0.0 K/mm3 03/30/17 03:50 Promyelocytes # 0.0 K/mm3 03/30/17 03:50 Blast Cells # 0.0 K/mm3 03/30/17 03:50 WBC Morphology Not Reportable 03/30/17 03:50 Hypersegmented Neuts Not Reportable 03/30/17 03:50 Hyposegmented Neuts Not Reportable 03/30/17 03:50 Hypogranular Neuts Not Reportable 03/30/17 03:50 Smudge Cells Not Reportable 03/30/17 03:50 Toxic Granulation Not Reportable 03/30/17 03:50 Toxic Vacuolation Not Reportable 03/30/17 03:50 Dohle Bodies Not Reportable 03/30/17 03:50 Pelger-Huet Anomaly Not Reportable 03/30/17 03:50 Sherry Rods Not Reportable 03/30/17 03:50 Platelet Estimate Appears normal 03/30/17 03:50 Clumped Platelets Not Reportable 03/30/17 03:50 Plt Clumps, EDTA Not Reportable 03/30/17 03:50 Large Platelets Not Reportable 03/30/17 03:50 Giant Platelets Not Reportable 03/30/17 03:50 Platelet Satelliting Not Reportable 03/30/17 03:50 Plt Morphology Comment Not Reportable 03/30/17 03:50 RBC Morphology Not Reportable 03/30/17 03:50 Dimorphic RBCs Not Reportable 03/30/17 03:50 Polychromasia Not Reportable 03/30/17 03:50 Hypochromasia Not Reportable 03/30/17 03:50 Poikilocytosis Not Reportable 03/30/17 03:50 Anisocytosis Few 03/30/17 03:50 Microcytosis Not Reportable 03/30/17 03:50 Macrocytosis Not Reportable 03/30/17 03:50 Spherocytes Not Reportable 03/30/17 03:50 Pappenheimer Bodies Not Reportable 03/30/17 03:50 Sickle Cells Not Reportable 03/30/17 03:50 Target Cells Not Reportable 03/30/17 03:50 Tear Drop Cells Not Reportable 03/30/17 03:50 Ovalocytes Not Reportable 03/30/17 03:50 Helmet Cells Not Reportable 03/30/17 03:50 [place] Bodies Not Reportable 03/30/17 03:50 [place] Rings Not Reportable 03/30/17 03:50 Nusrat Cells Not Reportable 03/30/17 03:50 Bite Cells Not Reportable 03/30/17 03:50 Crenated Cell Not Reportable 03/30/17 03:50 Elliptocytes Not Reportable 03/30/17 03:50 Acanthocytes (Spur) Not Reportable 03/30/17 03:50 Rouleaux Not Reportable 03/30/17 03:50 Hemoglobin C Crystals Not Reportable 03/30/17 03:50 Schistocytes Not Reportable 03/30/17 03:50 Malaria parasites Not Reportable 03/30/17 03:50 Jermaine Bodies Not Reportable 03/30/17 03:50 Hem Pathologist Commnt No 03/30/17 03:50 PT 14.9 Sec. (12.2-14.9) 04/10/17 04:16 INR 1.11 (0.87-1.13) 04/10/17 04:16 APTT 27.8 Sec. (24.2-36.6) 04/10/17 04:16 Activated Clotting Time 92 (74-137) 03/29/17 17:47 POC ABG pH 7.516 (7.35-7.45) H 04/19/17 06:50 POC ABG pCO2 28.0 (35-45) L 04/19/17 06:50 POC ABG pO2 81 (80-105) 04/19/17 06:50 POC ABG HCO3 22.7 04/19/17 06:50 POC ABG Total CO2 24 04/19/17 06:50 POC ABG O2 Sat 97 04/19/17 06:50 POC ABG Base Excess 0 04/19/17 06:50 FiO2 30 % 04/19/17 06:50 Sodium 137 mmol/L (137-145) 04/27/17 05:40 Potassium 3.7 mmol/L (3.6-5.0) 04/27/17 05:40 Chloride 100.2 mmol/L (98-107) 04/27/17 05:40 Carbon Dioxide 25 mmol/L (22-30) 04/27/17 05:40 Anion Gap 16 mmol/L 04/27/17 05:40 BUN 16 mg/dL (9-20) 04/27/17 05:40 Creatinine 0.2 mg/dL (0.8-1.5) L 04/27/17 05:40 Estimated GFR > 60 ml/min 04/27/17 05:40 BUN/Creatinine Ratio 80 % 04/27/17 05:40 Glucose 139 mg/dL (75-100) H 04/27/17 05:40 POC Glucose 135 (70-105) H 04/29/17 05:15 Calcium 8.5 mg/dL (8.4-10.2) 04/27/17 05:40 Phosphorus 3.50 mg/dL (2.5-4.5) 04/13/17 04:45 Magnesium 2.10 mg/dL (1.7-2.3) 04/23/17 05:33 Total Bilirubin 0.50 mg/dL (0.1-1.2) 04/27/17 05:40 Direct Bilirubin < 0.2 mg/dL (0-0.2) 04/27/17 05:40 Indirect Bilirubin 0.3 mg/dL 04/25/17 04:51 AST 66 units/L (5-40) H 04/27/17 05:40 ALT 137 units/L (7-56) H 04/27/17 05:40 Alkaline Phosphatase 169 units/L (35-129) H 04/27/17 05:40 Total Creatine Kinase 1404 units/L (55-170) H 04/12/17 21:36 CK-MB (CK-2) 8.0 ng/mL (0.0-4.0) H 04/12/17 21:36 CK-MB (CK-2) Rel Index 0.5 (0-4) 04/12/17 21:36 Troponin T 0.767 ng/mL (0.00-0.029) H* 04/12/17 21:36 C-Reactive Protein 21.80 mg/dL (0.00-1.30) H 03/30/17 16:04 Total Protein 6.2 g/dL (6.3-8.2) L 04/27/17 05:40 Albumin 2.6 g/dL (3.9-5) L 04/27/17 05:40 Albumin/Globulin Ratio 0.7 % 04/27/17 05:40 Triglycerides 151 mg/dL (2-149) H 04/01/17 04:29 Cholesterol 164 mg/dL (50-199) 03/29/17 19:52 LDL Cholesterol Direct 81 mg/dL (50-130) 03/29/17 19:52 HDL Cholesterol 44 mg/dL (40-59) 03/29/17 19:52 Cholesterol/HDL Ratio 3.72 % 03/29/17 19:52 Urine Color [place] (Yellow) 04/21/17 22:00 Urine Turbidity Clear (Clear) 04/21/17 22:00 Urine pH 5.0 (5.0-7.0) 04/21/17 22:00 Ur Specific [place] 1.029 (1.003-1.030) 04/21/17 22:00 Urine Protein 30 mg/dl mg/dL (Negative) 04/21/17 22:00 Urine Glucose (UA) Neg mg/dL (Negative) 04/21/17 22:00 Urine Ketones Neg mg/dL (Negative) 04/21/17 22:00 Urine Blood Mod (Negative) 04/21/17 22:00 Urine Nitrite Neg (Negative) 04/21/17 22:00 Urine Bilirubin Neg (Negative) 04/21/17 22:00 Urine Urobilinogen 4.0 mg/dL (<2.0) 04/21/17 22:00 Ur Leukocyte Esterase Neg (Negative) 04/21/17 22:00 Urine WBC (Auto) 10.0 /HPF (0.0-6.0) H 04/21/17 22:00 Urine RBC (Auto) 44.0 /HPF (0.0-6.0) 04/21/17 22:00 U Epithel Cells (Auto) < 1.0 /HPF (0-13.0) 04/21/17 22:00 Amorphous Crystals 1+ 03/30/17 09:45 Urine Mucus 3+ /HPF 04/21/17 22:00 Urine Opiates Screen Presumptive negative 03/30/17 09:45 Urine Methadone Screen Presumptive negative 03/30/17 09:45 Ur Barbiturates Screen Presumptive negative 03/30/17 09:45 Ur Phencyclidine Scrn Presumptive negative 03/30/17 09:45 Ur Amphetamines Screen Presumptive positive 03/30/17 09:45 U Benzodiazepines Scrn Presumptive positive 03/30/17 09:45 Urine Cocaine Screen Presumptive negative 03/30/17 09:45 U Marijuana (THC) Screen Presumptive negative 03/30/17 09:45 Drugs of Abuse Note Disclamer 03/30/17 09:45 Miscellaneous Test Flexitest 1 H 04/25/17 07:07 Blood Type O POSITIVE 03/29/17 11:35 Antibody Screen Negative 03/29/17 11:35
[2017-04-29] MEDS: PROTONIX FEEDTUBE SCH (09:39)
[2017-04-29] MEDS: COLACE FEEDTUBE SCH ×2 (09:39→22:52)
[2017-04-29] MEDS: ASPIRIN PO SCH (09:39)
[2017-04-29] MEDS: ZESTRIL PO SCH (09:40)
[2017-04-29] MEDS: HEPARIN SUB-Q SCH ×2 (09:40→22:39)
[2017-04-29] MEDS: PLAVIX PO SCH (09:40)
--- NOTE | 2017-04-29 13:14 | Progress Note ---
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 Will give lasix again today. Continue PSV. May try to extend the time tomorrow. Goal is to hopefully get to T-piece 1. Continue PSV trials as tolerated. 2. As per my partner, goal would be T-piece 17/10. Will need trach indefinitely given mental state 3. Continue vent support and management 4. Continue all other cardiac meds 5. Overall prognosis still remains poor given amount of downtime during arrest. CCT 31 minutes. Subjective Date of service: 04/29/17 Principal diagnosis: Acute NC Interval history: No acute events. Tolerated PSV all day yesterday. No lasix given yesterday. Objective Vital Signs - 12hr 04/29/17 04/29/17 04/29/17 02:00 03:00 03:24 Temperature 100.1 F H Pulse Rate 92 H 96 H Pulse Rate [ From Monitor] Respiratory 28 H 25 H Rate Blood Pressure 96/55 92/56 O2 Sat by Pulse 98 Oximetry O2 Sat by Pulse 99 Oximetry [ Assessment] 04/29/17 04/29/17 04/29/17 04:00 04:10 05:00 Temperature Pulse Rate 93 H 95 H 87 Pulse Rate [ 95 H From Monitor] Respiratory 26 H 22 Rate Blood Pressure 97/54 97/54 95/61 O2 Sat by Pulse 98 Oximetry O2 Sat by Pulse Oximetry [ Assessment] 04/29/17 04/29/17 04/29/17 05:42 06:00 07:00 Temperature Pulse Rate 95 H 96 H 98 H Pulse Rate [ From Monitor] Respiratory 24 24 Rate Blood Pressure 95/61 100/61 100/57 O2 Sat by Pulse 97 Oximetry O2 Sat by Pulse Oximetry [ Assessment] 04/29/17 04/29/17 04/29/17 08:00 08:05 08:35 Temperature 98.7 F Pulse Rate 97 H 97 H Pulse Rate [ 97 H From Monitor] Respiratory 23 Rate Blood Pressure 100/64 100/64 O2 Sat by Pulse 97 97 Oximetry O2 Sat by Pulse Oximetry [ Assessment] 04/29/17 04/29/17 04/29/17 09:00 09:40 10:00 Temperature Pulse Rate 101 H 101 H 96 H Pulse Rate [ From Monitor] Respiratory 30 H 27 H Rate Blood Pressure 96/54 96/54 97/51 O2 Sat by Pulse Oximetry O2 Sat by Pulse Oximetry [ Assessment] 04/29/17 12:00 Temperature 98.6 F Pulse Rate Pulse Rate [ From Monitor] Respiratory Rate Blood Pressure O2 Sat by Pulse Oximetry O2 Sat by Pulse Oximetry [ Assessment] Constitutional: comatose Eyes: non-icteric ENT: oropharynx moist, other (orally intubated and not sedated.) Neck: supple Effort: normal Ascultation: Bilateral: clear, diminished breath sounds ( ), other (coarse BS bilaterally) Percussion: Bilateral: not dull Cardiovascular: regular rate and rhythm (no mrg) Gastrointestinal: normoactive bowel sounds, soft, non-tender, non-distended, other (mild distention) Integumentary: normal, other (multiple tattoos) Extremities: no cyanosis, no edema, pink and warm Neurologic: other (comatose, flaccid extremities, good cough w/ suction) Psychiatric: other (unable to assess) CBC and BMP: 04/27/17 05:40 04/27/17 05:40 ABG, PT/INR, D-dimer: ABG POC ABG pH 7.516 (7.35-7.45) H 04/19/17 06:50 POC ABG pCO2 28.0 (35-45) L 04/19/17 06:50 POC ABG pO2 81 (80-105) 04/19/17 06:50 POC ABG HCO3 22.7 04/19/17 06:50 POC ABG Total CO2 24 04/19/17 06:50 POC ABG O2 Sat 97 04/19/17 06:50 PT/INR, D-dimer PT 14.9 Sec. (12.2-14.9) 04/10/17 04:16 INR 1.11 (0.87-1.13) 04/10/17 04:16 Abnormal lab findings: Abnormal Labs 03/29/17 03/29/17 03/29/17 11:35 11:35 11:40 WBC RBC Hgb Hct MCV 98 H MCH 33 H Plt Count Lymph % (Auto) Eos % (Auto) Baso % (Auto) Lymph # Baso # Seg Neutrophils % Lymphocytes % (Manual) Monocytes % (Manual) 9.0 H Nucleated RBC % 1.0 H Seg Neutrophils # Seg Neutrophils # Man Monocytes # (Manual) 0.9 H PT 15.8 H INR 1.20 H Activated Clotting Time POC ABG pH POC ABG pCO2 POC ABG pO2 Sodium Potassium 2.7 L* Chloride 95.3 L Carbon Dioxide 17 L BUN Creatinine Glucose 435 H POC Glucose Calcium Magnesium Direct Bilirubin AST ALT Alkaline Phosphatase Total Creatine Kinase CK-MB (CK-2) CK-MB (CK-2) Rel Index Troponin T C-Reactive Protein Total Protein 6.1 L Albumin 3.5 L Triglycerides Ur Specific [place] Urine WBC (Auto) Miscellaneous Test 03/29/17 03/29/17 03/29/17 12:34 13:10 13:25 WBC RBC Hgb Hct MCV MCH Plt Count Lymph % (Auto) Eos % (Auto) Baso % (Auto) Lymph # Baso # Seg Neutrophils % Lymphocytes % (Manual) Monocytes % (Manual) Nucleated RBC % Seg Neutrophils # Seg Neutrophils # Man Monocytes # (Manual) PT INR Activated Clotting Time 142 H 169 H 175 H POC ABG pH POC ABG pCO2 POC ABG pO2 Sodium Potassium Chloride Carbon Dioxide BUN Creatinine Glucose POC Glucose Calcium Magnesium Direct Bilirubin AST ALT Alkaline Phosphatase Total Creatine Kinase CK-MB (CK-2) CK-MB (CK-2) Rel Index Troponin T C-Reactive Protein Total Protein Albumin Triglycerides Ur Specific [place] Urine WBC (Auto) Miscellaneous Test 03/29/17 03/29/17 03/29/17 14:50 15:18 19:52 WBC RBC Hgb Hct MCV MCH Plt Count Lymph % (Auto) Eos % (Auto) Baso % (Auto) Lymph # Baso # Seg Neutrophils % Lymphocytes % (Manual) Monocytes % (Manual) Nucleated RBC % Seg Neutrophils # Seg Neutrophils # Man Monocytes # (Manual) PT INR Activated Clotting Time 175 H POC ABG pH 7.293 L POC ABG pCO2 POC ABG pO2 602 H Sodium Potassium Chloride Carbon Dioxide BUN Creatinine Glucose POC Glucose Calcium Magnesium Direct Bilirubin AST ALT Alkaline Phosphatase Total Creatine Kinase 7263 H CK-MB (CK-2) > 300.0 H CK-MB (CK-2) Rel Index 4.1 H Troponin T 8.080 H* D C-Reactive Protein Total Protein Albumin Triglycerides 195 H Ur Specific [place] Urine WBC (Auto) Miscellaneous Test 03/30/17 03/30/17 03/30/17 03:50 03:50 06:19 WBC 19.5 H RBC Hgb Hct MCV MCH Plt Count Lymph % (Auto) Eos % (Auto) Baso % (Auto) Lymph # Baso # Seg Neutrophils % Lymphocytes % (Manual) 7.0 L Monocytes % (Manual) Nucleated RBC % Seg Neutrophils # Seg Neutrophils # Man 12.7 H Monocytes # (Manual) 1.4 H PT INR Activated Clotting Time POC ABG pH POC ABG pCO2 28.2 L POC ABG pO2 108 H Sodium Potassium Chloride 108.9 H Carbon Dioxide 15 L BUN 25 H Creatinine Glucose 158 H POC Glucose Calcium 8.1 L Magnesium Direct Bilirubin AST ALT Alkaline Phosphatase Total Creatine Kinase 7963 H CK-MB (CK-2) > 300.0 H CK-MB (CK-2) Rel Index Troponin T 6.850 H* C-Reactive Protein Total Protein Albumin Triglycerides Ur Specific [place] Urine WBC (Auto) Miscellaneous Test 03/30/17 03/30/17 03/31/17 09:45 16:04 02:19 WBC RBC Hgb Hct MCV MCH Plt Count Lymph % (Auto) Eos % (Auto) Baso % (Auto) Lymph # Baso # Seg Neutrophils % Lymphocytes % (Manual) Monocytes % (Manual) Nucleated RBC % Seg Neutrophils # Seg Neutrophils # Man Monocytes # (Manual) PT INR Activated Clotting Time POC ABG pH POC ABG pCO2 POC ABG pO2 Sodium Potassium Chloride Carbon Dioxide BUN Creatinine Glucose POC Glucose 137 H Calcium Magnesium Direct Bilirubin AST ALT Alkaline Phosphatase Total Creatine Kinase CK-MB (CK-2) CK-MB (CK-2) Rel Index Troponin T C-Reactive Protein 21.80 H Total Protein Albumin Triglycerides Ur Specific [place] 1.031 H Urine WBC (Auto) Miscellaneous Test 03/31/17 03/31/17 03/31/17 03:57 06:54 09:22 WBC RBC Hgb Hct MCV MCH Plt Count Lymph % (Auto) Eos % (Auto) Baso % (Auto) Lymph # Baso # Seg Neutrophils % Lymphocytes % (Manual) Monocytes % (Manual) Nucleated RBC % Seg Neutrophils # Seg Neutrophils # Man Monocytes # (Manual) PT INR Activated Clotting Time POC ABG pH 7.475 H POC ABG pCO2 25.4 L POC ABG pO2 62 L Sodium Potassium Chloride Carbon Dioxide 19 L BUN 22 H Creatinine 0.6 L Glucose 148 H POC Glucose 143 H Calcium 8.3 L Magnesium Direct Bilirubin AST ALT Alkaline Phosphatase Total Creatine Kinase CK-MB (CK-2) CK-MB (CK-2) Rel Index Troponin T C-Reactive Protein Total Protein Albumin Triglycerides Ur Specific [place] Urine WBC (Auto) Miscellaneous Test 03/31/17 03/31/17 03/31/17 11:40 17:47 23:38 WBC RBC Hgb Hct MCV MCH Plt Count Lymph % (Auto) Eos % (Auto) Baso % (Auto) Lymph # Baso # Seg Neutrophils % Lymphocytes % (Manual) Monocytes % (Manual) Nucleated RBC % Seg Neutrophils # Seg Neutrophils # Man Monocytes # (Manual) PT INR Activated Clotting Time POC ABG pH POC ABG pCO2 POC ABG pO2 Sodium Potassium Chloride Carbon Dioxide BUN Creatinine Glucose POC Glucose 127 H 137 H 148 H Calcium Magnesium Direct Bilirubin AST ALT Alkaline Phosphatase Total Creatine Kinase CK-MB (CK-2) CK-MB (CK-2) Rel Index Troponin T C-Reactive Protein Total Protein Albumin Triglycerides Ur Specific [place] Urine WBC (Auto) Miscellaneous Test 04/01/17 04/01/17 04/01/17 04:29 05:01 11:54 WBC RBC Hgb Hct MCV MCH Plt Count Lymph % (Auto) Eos % (Auto) Baso % (Auto) Lymph # Baso # Seg Neutrophils % Lymphocytes % (Manual) Monocytes % (Manual) Nucleated RBC % Seg Neutrophils # Seg Neutrophils # Man Monocytes # (Manual) PT INR Activated Clotting Time POC ABG pH 7.513 H POC ABG pCO2 22.1 L POC ABG pO2 64 L Sodium Potassium Chloride Carbon Dioxide BUN Creatinine Glucose POC Glucose 121 H Calcium Magnesium Direct Bilirubin AST ALT Alkaline Phosphatase Total Creatine Kinase CK-MB (CK-2) CK-MB (CK-2) Rel Index Troponin T C-Reactive Protein Total Protein Albumin Triglycerides 151 H Ur Specific [place] Urine WBC (Auto) Miscellaneous Test 04/01/17 04/02/17 04/02/17 18:17 00:11 04:52 WBC RBC Hgb Hct MCV MCH Plt Count Lymph % (Auto) Eos % (Auto) Baso % (Auto) Lymph # Baso # Seg Neutrophils % Lymphocytes % (Manual) Monocytes % (Manual) Nucleated RBC % Seg Neutrophils # Seg Neutrophils # Man Monocytes # (Manual) PT INR Activated Clotting Time POC ABG pH 7.524 H POC ABG pCO2 25.5 L POC ABG pO2 66 L Sodium Potassium Chloride Carbon Dioxide BUN Creatinine Glucose POC Glucose 117 H 122 H Calcium Magnesium Direct Bilirubin AST ALT Alkaline Phosphatase Total Creatine Kinase CK-MB (CK-2) CK-MB (CK-2) Rel Index Troponin T C-Reactive Protein Total Protein Albumin Triglycerides Ur Specific [place] Urine WBC (Auto) Miscellaneous Test 04/02/17 04/02/17 04/02/17 05:18 10:41 12:19 WBC RBC Hgb Hct MCV MCH Plt Count Lymph % (Auto) Eos % (Auto) Baso % (Auto) Lymph # Baso # Seg Neutrophils % Lymphocytes % (Manual) Monocytes % (Manual) Nucleated RBC % Seg Neutrophils # Seg Neutrophils # Man Monocytes # (Manual) PT INR Activated Clotting Time POC ABG pH 7.534 H POC ABG pCO2 27.4 L POC ABG pO2 Sodium Potassium Chloride Carbon Dioxide BUN Creatinine Glucose POC Glucose 132 H 129 H Calcium Magnesium Direct Bilirubin AST ALT Alkaline Phosphatase Total Creatine Kinase CK-MB (CK-2) CK-MB (CK-2) Rel Index Troponin T C-Reactive Protein Total Protein Albumin Triglycerides Ur Specific [place] Urine WBC (Auto) Miscellaneous Test 04/02/17 04/03/17 04/03/17 18:05 00:08 05:09 WBC RBC Hgb Hct MCV MCH Plt Count Lymph % (Auto) Eos % (Auto) Baso % (Auto) Lymph # Baso # Seg Neutrophils % Lymphocytes % (Manual) Monocytes % (Manual) Nucleated RBC % Seg Neutrophils # Seg Neutrophils # Man Monocytes # (Manual) PT INR Activated Clotting Time POC ABG pH 7.455 H POC ABG pCO2 33.2 L POC ABG pO2 120 H Sodium Potassium Chloride Carbon Dioxide BUN Creatinine Glucose POC Glucose 136 H 128 H Calcium Magnesium Direct Bilirubin AST ALT Alkaline Phosphatase Total Creatine Kinase CK-MB (CK-2) CK-MB (CK-2) Rel Index Troponin T C-Reactive Protein Total Protein Albumin Triglycerides Ur Specific [place] Urine WBC (Auto) Miscellaneous Test 04/03/17 04/03/17 04/03/17 06:32 11:54 12:16 WBC 11.9 H RBC Hgb Hct MCV MCH Plt Count 125 L Lymph % (Auto) 4.8 L Eos % (Auto) Baso % (Auto) Lymph # 0.6 L Baso # Seg Neutrophils % 86.7 H Lymphocytes % (Manual) Monocytes % (Manual) Nucleated RBC % Seg Neutrophils # 10.3 H Seg Neutrophils # Man Monocytes # (Manual) PT INR Activated Clotting Time POC ABG pH POC ABG pCO2 POC ABG pO2 Sodium Potassium Chloride Carbon Dioxide BUN Creatinine Glucose POC Glucose 138 H 143 H Calcium Magnesium Direct Bilirubin AST ALT Alkaline Phosphatase Total Creatine Kinase CK-MB (CK-2) CK-MB (CK-2) Rel Index Troponin T C-Reactive Protein Total Protein Albumin Triglycerides Ur Specific [place] Urine WBC (Auto) Miscellaneous Test 04/03/17 04/03/17 04/04/17 17:33 23:59 04:34 WBC RBC Hgb Hct MCV MCH Plt Count Lymph % (Auto) Eos % (Auto) Baso % (Auto) Lymph # Baso # Seg Neutrophils % Lymphocytes % (Manual) Monocytes % (Manual) Nucleated RBC % Seg Neutrophils # Seg Neutrophils # Man Monocytes # (Manual) PT INR Activated Clotting Time POC ABG pH 7.457 H POC ABG pCO2 29.8 L POC ABG pO2 76 L Sodium Potassium Chloride Carbon Dioxide BUN Creatinine Glucose POC Glucose 130 H 155 H Calcium Magnesium Direct Bilirubin AST ALT Alkaline Phosphatase Total Creatine Kinase CK-MB (CK-2) CK-MB (CK-2) Rel Index Troponin T C-Reactive Protein Total Protein Albumin Triglycerides Ur Specific [place] Urine WBC (Auto) Miscellaneous Test 04/04/17 04/04/17 04/04/17 05:27 12:22 18:18 WBC RBC Hgb Hct MCV MCH Plt Count Lymph % (Auto) Eos % (Auto) Baso % (Auto) Lymph # Baso # Seg Neutrophils % Lymphocytes % (Manual) Monocytes % (Manual) Nucleated RBC % Seg Neutrophils # Seg Neutrophils # Man Monocytes # (Manual) PT INR Activated Clotting Time POC ABG pH POC ABG pCO2 POC ABG pO2 Sodium Potassium Chloride Carbon Dioxide BUN Creatinine Glucose POC Glucose 164 H 146 H 130 H Calcium Magnesium Direct Bilirubin AST ALT Alkaline Phosphatase Total Creatine Kinase CK-MB (CK-2) CK-MB (CK-2) Rel Index Troponin T C-Reactive Protein Total Protein Albumin Triglycerides Ur Specific [place] Urine WBC (Auto) Miscellaneous Test 04/05/17 04/05/17 04/05/17 04:43 05:28 11:36 WBC RBC Hgb Hct MCV MCH Plt Count Lymph % (Auto) Eos % (Auto) Baso % (Auto) Lymph # Baso # Seg Neutrophils % Lymphocytes % (Manual) Monocytes % (Manual) Nucleated RBC % Seg Neutrophils # Seg Neutrophils # Man Monocytes # (Manual) PT INR Activated Clotting Time POC ABG pH 7.479 H POC ABG pCO2 33.5 L POC ABG pO2 76 L Sodium Potassium Chloride Carbon Dioxide BUN Creatinine Glucose POC Glucose 145 H 136 H Calcium Magnesium Direct Bilirubin AST ALT Alkaline Phosphatase Total Creatine Kinase CK-MB (CK-2) CK-MB (CK-2) Rel Index Troponin T C-Reactive Protein Total Protein Albumin Triglycerides Ur Specific [place] Urine WBC (Auto) Miscellaneous Test 04/05/17 04/06/17 04/06/17 17:58 00:16 05:26 WBC RBC Hgb Hct MCV MCH Plt Count Lymph % (Auto) Eos % (Auto) Baso % (Auto) Lymph # Baso # Seg Neutrophils % Lymphocytes % (Manual) Monocytes % (Manual) Nucleated RBC % Seg Neutrophils # Seg Neutrophils # Man Monocytes # (Manual) PT INR Activated Clotting Time POC ABG pH POC ABG pCO2 POC ABG pO2 Sodium Potassium Chloride Carbon Dioxide BUN Creatinine Glucose POC Glucose 130 H 159 H 146 H Calcium Magnesium Direct Bilirubin AST ALT Alkaline Phosphatase Total Creatine Kinase CK-MB (CK-2) CK-MB (CK-2) Rel Index Troponin T C-Reactive Protein Total Protein Albumin Triglycerides Ur Specific [place] Urine WBC (Auto) Miscellaneous Test 04/06/17 04/06/17 04/07/17 13:11 16:54 11:45 WBC RBC Hgb Hct MCV MCH Plt Count Lymph % (Auto) Eos % (Auto) Baso % (Auto) Lymph # Baso # Seg Neutrophils % Lymphocytes % (Manual) Monocytes % (Manual) Nucleated RBC % Seg Neutrophils # Seg Neutrophils # Man Monocytes # (Manual) PT INR Activated Clotting Time POC ABG pH 7.517 H POC ABG pCO2 32.1 L POC ABG pO2 Sodium Potassium Chloride Carbon Dioxide BUN Creatinine Glucose POC Glucose 132 H 123 H Calcium Magnesium Direct Bilirubin AST ALT Alkaline Phosphatase Total Creatine Kinase CK-MB (CK-2) CK-MB (CK-2) Rel Index Troponin T C-Reactive Protein Total Protein Albumin Triglycerides Ur Specific [place] Urine WBC (Auto) Miscellaneous Test 04/07/17 04/07/17 04/07/17 12:51 17:40 23:55 WBC RBC Hgb Hct MCV MCH Plt Count Lymph % (Auto) Eos % (Auto) Baso % (Auto) Lymph # Baso # Seg Neutrophils % Lymphocytes % (Manual) Monocytes % (Manual) Nucleated RBC % Seg Neutrophils # Seg Neutrophils # Man Monocytes # (Manual) PT INR Activated Clotting Time POC ABG pH POC ABG pCO2 POC ABG pO2 Sodium Potassium Chloride Carbon Dioxide BUN Creatinine Glucose POC Glucose 138 H 154 H 143 H Calcium Magnesium Direct Bilirubin AST ALT Alkaline Phosphatase Total Creatine Kinase CK-MB (CK-2) CK-MB (CK-2) Rel Index Troponin T C-Reactive Protein Total Protein Albumin Triglycerides Ur Specific [place] Urine WBC (Auto) Miscellaneous Test 04/08/17 04/08/17 04/08/17 05:27 11:14 17:44 WBC RBC Hgb Hct MCV MCH Plt Count Lymph % (Auto) Eos % (Auto) Baso % (Auto) Lymph # Baso # Seg Neutrophils % Lymphocytes % (Manual) Monocytes % (Manual) Nucleated RBC % Seg Neutrophils # Seg Neutrophils # Man Monocytes # (Manual) PT INR Activated Clotting Time POC ABG pH POC ABG pCO2 POC ABG pO2 Sodium Potassium Chloride Carbon Dioxide BUN Creatinine Glucose POC Glucose 142 H 153 H 129 H Calcium Magnesium Direct Bilirubin AST ALT Alkaline Phosphatase Total Creatine Kinase CK-MB (CK-2) CK-MB (CK-2) Rel Index Troponin T C-Reactive Protein Total Protein Albumin Triglycerides Ur Specific [place] Urine WBC (Auto) Miscellaneous Test 04/09/17 04/09/17 04/09/17 08:20 11:21 17:37 WBC RBC Hgb Hct MCV MCH Plt Count Lymph % (Auto) Eos % (Auto) Baso % (Auto) Lymph # Baso # Seg Neutrophils % Lymphocytes % (Manual) Monocytes % (Manual) Nucleated RBC % Seg Neutrophils # Seg Neutrophils # Man Monocytes # (Manual) PT INR Activated Clotting Time POC ABG pH POC ABG pCO2 POC ABG pO2 Sodium 147 H Potassium Chloride 108.8 H Carbon Dioxide BUN 39 H Creatinine 0.5 L Glucose 138 H POC Glucose 152 H 109 H Calcium Magnesium Direct Bilirubin AST ALT Alkaline Phosphatase Total Creatine Kinase CK-MB (CK-2) CK-MB (CK-2) Rel Index Troponin T C-Reactive Protein Total Protein Albumin Triglycerides Ur Specific [place] Urine WBC (Auto) Miscellaneous Test 04/10/17 04/10/17 04/10/17 00:13 04:16 04:16 WBC RBC Hgb 11.5 L Hct MCV 96 H MCH Plt Count 103 L Lymph % (Auto) 11.1 L Eos % (Auto) Baso % (Auto) Lymph # Baso # Seg Neutrophils % 81.5 H Lymphocytes % (Manual) Monocytes % (Manual) Nucleated RBC % Seg Neutrophils # 8.8 H Seg Neutrophils # Man Monocytes # (Manual) PT INR Activated Clotting Time POC ABG pH POC ABG pCO2 POC ABG pO2 Sodium 148 H Potassium Chloride 109.0 H Carbon Dioxide BUN 36 H Creatinine 0.5 L Glucose 131 H POC Glucose 127 H Calcium 8.1 L Magnesium 2.40 H Direct Bilirubin AST 206 H ALT 228 H Alkaline Phosphatase 178 H Total Creatine Kinase CK-MB (CK-2) CK-MB (CK-2) Rel Index Troponin T C-Reactive Protein Total Protein Albumin 2.8 L Triglycerides Ur Specific [place] Urine WBC (Auto) Miscellaneous Test 04/10/17 04/10/17 04/10/17 06:01 11:57 18:27 WBC RBC Hgb Hct MCV MCH Plt Count Lymph % (Auto) Eos % (Auto) Baso % (Auto) Lymph # Baso # Seg Neutrophils % Lymphocytes % (Manual) Monocytes % (Manual) Nucleated RBC % Seg Neutrophils # Seg Neutrophils # Man Monocytes # (Manual) PT INR Activated Clotting Time POC ABG pH POC ABG pCO2 POC ABG pO2 Sodium Potassium Chloride Carbon Dioxide BUN Creatinine Glucose POC Glucose 108 H 154 H 130 H Calcium Magnesium Direct Bilirubin AST ALT Alkaline Phosphatase Total Creatine Kinase CK-MB (CK-2) CK-MB (CK-2) Rel Index Troponin T C-Reactive Protein Total Protein Albumin Triglycerides Ur Specific [place] Urine WBC (Auto) Miscellaneous Test 04/11/17 04/11/17 04/12/17 12:25 17:10 00:22 WBC RBC Hgb Hct MCV MCH Plt Count Lymph % (Auto) Eos % (Auto) Baso % (Auto) Lymph # Baso # Seg Neutrophils % Lymphocytes % (Manual) Monocytes % (Manual) Nucleated RBC % Seg Neutrophils # Seg Neutrophils # Man Monocytes # (Manual) PT INR Activated Clotting Time POC ABG pH POC ABG pCO2 POC ABG pO2 Sodium Potassium Chloride Carbon Dioxide BUN Creatinine Glucose POC Glucose 107 H 129 H 128 H Calcium Magnesium Direct Bilirubin AST ALT Alkaline Phosphatase Total Creatine Kinase CK-MB (CK-2) CK-MB (CK-2) Rel Index Troponin T C-Reactive Protein Total Protein Albumin Triglycerides Ur Specific [place] Urine WBC (Auto) Miscellaneous Test 04/12/17 04/12/17 04/12/17 05:00 11:57 17:47 WBC RBC Hgb Hct MCV MCH Plt Count Lymph % (Auto) Eos % (Auto) Baso % (Auto) Lymph # Baso # Seg Neutrophils % Lymphocytes % (Manual) Monocytes % (Manual) Nucleated RBC % Seg Neutrophils # Seg Neutrophils # Man Monocytes # (Manual) PT INR Activated Clotting Time POC ABG pH POC ABG pCO2 POC ABG pO2 Sodium Potassium Chloride Carbon Dioxide BUN Creatinine Glucose POC Glucose 140 H 142 H Calcium Magnesium Direct Bilirubin AST 158 H ALT 184 H Alkaline Phosphatase 170 H Total Creatine Kinase CK-MB (CK-2) CK-MB (CK-2) Rel Index Troponin T C-Reactive Protein Total Protein Albumin 2.8 L Triglycerides Ur Specific [place] Urine WBC (Auto) Miscellaneous Test 04/12/17 04/12/17 04/13/17 21:36 21:36 01:37 WBC RBC Hgb Hct MCV MCH Plt Count Lymph % (Auto) Eos % (Auto) Baso % (Auto) Lymph # Baso # Seg Neutrophils % Lymphocytes % (Manual) Monocytes % (Manual) Nucleated RBC % Seg Neutrophils # Seg Neutrophils # Man Monocytes # (Manual) PT INR Activated Clotting Time POC ABG pH POC ABG pCO2 POC ABG pO2 Sodium Potassium Chloride Carbon Dioxide BUN Creatinine Glucose POC Glucose 126 H Calcium Magnesium Direct Bilirubin AST ALT Alkaline Phosphatase Total Creatine Kinase 1404 H CK-MB (CK-2) 8.0 H CK-MB (CK-2) Rel Index Troponin T 0.767 H* C-Reactive Protein Total Protein Albumin Triglycerides Ur Specific [place] Urine WBC (Auto) Miscellaneous Test 04/13/17 04/13/17 04/13/17 04:45 04:52 12:17 WBC RBC Hgb Hct MCV MCH Plt Count Lymph % (Auto) Eos % (Auto) Baso % (Auto) Lymph # Baso # Seg Neutrophils % Lymphocytes % (Manual) Monocytes % (Manual) Nucleated RBC % Seg Neutrophils # Seg Neutrophils # Man Monocytes # (Manual) PT INR Activated Clotting Time POC ABG pH POC ABG pCO2 POC ABG pO2 Sodium 148 H Potassium Chloride 112.8 H Carbon Dioxide BUN 33 H Creatinine 0.4 L Glucose 121 H POC Glucose 126 H 149 H Calcium Magnesium Direct Bilirubin AST 160 H ALT 189 H Alkaline Phosphatase 166 H Total Creatine Kinase CK-MB (CK-2) CK-MB (CK-2) Rel Index Troponin T C-Reactive Protein Total Protein Albumin 2.6 L Triglycerides Ur Specific [place] Urine WBC (Auto) Miscellaneous Test 04/13/17 04/14/17 04/14/17 17:45 00:20 00:45 WBC RBC Hgb Hct MCV MCH Plt Count Lymph % (Auto) Eos % (Auto) Baso % (Auto) Lymph # Baso # Seg Neutrophils % Lymphocytes % (Manual) Monocytes % (Manual) Nucleated RBC % Seg Neutrophils # Seg Neutrophils # Man Monocytes # (Manual) PT INR Activated Clotting Time POC ABG pH POC ABG pCO2 POC ABG pO2 Sodium Potassium Chloride Carbon Dioxide BUN Creatinine Glucose POC Glucose 130 H 144 H 144 H Calcium Magnesium Direct Bilirubin AST ALT Alkaline Phosphatase Total Creatine Kinase CK-MB (CK-2) CK-MB (CK-2) Rel Index Troponin T C-Reactive Protein Total Protein Albumin Triglycerides Ur Specific [place] Urine WBC (Auto) Miscellaneous Test 04/14/17 04/14/17 04/14/17 05:40 11:06 11:31 WBC RBC Hgb Hct MCV MCH Plt Count Lymph % (Auto) Eos % (Auto) Baso % (Auto) Lymph # Baso # Seg Neutrophils % Lymphocytes % (Manual) Monocytes % (Manual) Nucleated RBC % Seg Neutrophils # Seg Neutrophils # Man Monocytes # (Manual) PT INR Activated Clotting Time POC ABG pH POC ABG pCO2 POC ABG pO2 Sodium Potassium Chloride Carbon Dioxide BUN Creatinine Glucose POC Glucose 139 H 123 H Calcium Magnesium Direct Bilirubin AST ALT Alkaline Phosphatase Total Creatine Kinase CK-MB (CK-2) CK-MB (CK-2) Rel Index Troponin T C-Reactive Protein Total Protein Albumin Triglycerides Ur Specific [place] 1.033 H Urine WBC (Auto) > 182.0 H Miscellaneous Test 04/14/17 04/14/17 04/15/17 18:00 23:52 05:15 WBC 12.5 H RBC 3.38 L Hgb 10.6 L Hct 32.7 L MCV 97 H MCH Plt Count 107 L Lymph % (Auto) 8.7 L Eos % (Auto) Baso % (Auto) Lymph # 1.1 L Baso # Seg Neutrophils % 86.1 H Lymphocytes % (Manual) Monocytes % (Manual) Nucleated RBC % Seg Neutrophils # 10.7 H Seg Neutrophils # Man Monocytes # (Manual) PT INR Activated Clotting Time POC ABG pH POC ABG pCO2 POC ABG pO2 Sodium Potassium Chloride Carbon Dioxide BUN Creatinine Glucose POC Glucose 133 H 133 H Calcium Magnesium Direct Bilirubin AST ALT Alkaline Phosphatase Total Creatine Kinase CK-MB (CK-2) CK-MB (CK-2) Rel Index Troponin T C-Reactive Protein Total Protein Albumin Triglycerides Ur Specific [place] Urine WBC (Auto) Miscellaneous Test 04/15/17 04/15/17 04/15/17 05:15 05:25 11:50 WBC RBC Hgb Hct MCV MCH Plt Count Lymph % (Auto) Eos % (Auto) Baso % (Auto) Lymph # Baso # Seg Neutrophils % Lymphocytes % (Manual) Monocytes % (Manual) Nucleated RBC % Seg Neutrophils # Seg Neutrophils # Man Monocytes # (Manual) PT INR Activated Clotting Time POC ABG pH POC ABG pCO2 POC ABG pO2 Sodium 149 H Potassium 3.5 L Chloride 114.1 H Carbon Dioxide 21 L BUN 29 H Creatinine 0.4 L Glucose 128 H POC Glucose 133 H 107 H Calcium 8.3 L Magnesium Direct Bilirubin 0.4 H AST 149 H ALT 182 H Alkaline Phosphatase 143 H Total Creatine Kinase CK-MB (CK-2) CK-MB (CK-2) Rel Index Troponin T C-Reactive Protein Total Protein Albumin 2.5 L Triglycerides Ur Specific [place] Urine WBC (Auto) Miscellaneous Test 04/15/17 04/16/17 04/16/17 16:55 00:02 03:17 WBC RBC 3.39 L Hgb 10.5 L Hct 32.4 L MCV 96 H MCH Plt Count 106 L Lymph % (Auto) 6.7 L Eos % (Auto) Baso % (Auto) Lymph # 0.6 L Baso # Seg Neutrophils % 86.8 H Lymphocytes % (Manual) Monocytes % (Manual) Nucleated RBC % Seg Neutrophils # 8.2 H Seg Neutrophils # Man Monocytes # (Manual) PT INR Activated Clotting Time POC ABG pH POC ABG pCO2 POC ABG pO2 Sodium Potassium Chloride Carbon Dioxide BUN Creatinine Glucose POC Glucose 146 H 148 H Calcium Magnesium Direct Bilirubin AST ALT Alkaline Phosphatase Total Creatine Kinase CK-MB (CK-2) CK-MB (CK-2) Rel Index Troponin T C-Reactive Protein Total Protein Albumin Triglycerides Ur Specific [place] Urine WBC (Auto) Miscellaneous Test 04/16/17 04/16/17 04/16/17 03:17 05:19 11:13 WBC RBC Hgb Hct MCV MCH Plt Count Lymph % (Auto) Eos % (Auto) Baso % (Auto) Lymph # Baso # Seg Neutrophils % Lymphocytes % (Manual) Monocytes % (Manual) Nucleated RBC % Seg Neutrophils # Seg Neutrophils # Man Monocytes # (Manual) PT INR Activated Clotting Time POC ABG pH POC ABG pCO2 POC ABG pO2 Sodium 149 H Potassium Chloride 111.1 H Carbon Dioxide 20 L BUN 27 H Creatinine 0.3 L Glucose 156 H POC Glucose 171 H 169 H Calcium 8.3 L Magnesium Direct Bilirubin AST ALT Alkaline Phosphatase Total Creatine Kinase CK-MB (CK-2) CK-MB (CK-2) Rel Index Troponin T C-Reactive Protein Total Protein Albumin Triglycerides Ur Specific [place] Urine WBC (Auto) Miscellaneous Test 04/16/17 04/17/17 04/17/17 17:03 00:00 05:09 WBC RBC Hgb Hct MCV MCH Plt Count Lymph % (Auto) Eos % (Auto) Baso % (Auto) Lymph # Baso # Seg Neutrophils % Lymphocytes % (Manual) Monocytes % (Manual) Nucleated RBC % Seg Neutrophils # Seg Neutrophils # Man Monocytes # (Manual) PT INR Activated Clotting Time POC ABG pH POC ABG pCO2 POC ABG pO2 Sodium Potassium Chloride Carbon Dioxide BUN Creatinine Glucose POC Glucose 151 H 165 H 145 H Calcium Magnesium Direct Bilirubin AST ALT Alkaline Phosphatase Total Creatine Kinase CK-MB (CK-2) CK-MB (CK-2) Rel Index Troponin T C-Reactive Protein Total Protein Albumin Triglycerides Ur Specific [place] Urine WBC (Auto) Miscellaneous Test 04/17/17 04/17/17 04/18/17 11:38 17:47 00:01 WBC RBC Hgb Hct MCV MCH Plt Count Lymph % (Auto) Eos % (Auto) Baso % (Auto) Lymph # Baso # Seg Neutrophils % Lymphocytes % (Manual) Monocytes % (Manual) Nucleated RBC % Seg Neutrophils # Seg Neutrophils # Man Monocytes # (Manual) PT INR Activated Clotting Time POC ABG pH POC ABG pCO2 POC ABG pO2 Sodium Potassium Chloride Carbon Dioxide BUN Creatinine Glucose POC Glucose 170 H 161 H 131 H Calcium Magnesium Direct Bilirubin AST ALT Alkaline Phosphatase Total Creatine Kinase CK-MB (CK-2) CK-MB (CK-2) Rel Index Troponin T C-Reactive Protein Total Protein Albumin Triglycerides Ur Specific [place] Urine WBC (Auto) Miscellaneous Test 04/18/17 04/18/17 04/18/17 03:55 03:55 05:30 WBC RBC 3.05 L Hgb 9.8 L Hct 29.0 L MCV 95 H MCH Plt Count 113 L Lymph % (Auto) Eos % (Auto) 5.3 H Baso % (Auto) Lymph # Baso # Seg Neutrophils % 71.5 H Lymphocytes % (Manual) Monocytes % (Manual) Nucleated RBC % Seg Neutrophils # Seg Neutrophils # Man Monocytes # (Manual) PT INR Activated Clotting Time POC ABG pH 7.460 H POC ABG pCO2 30.8 L POC ABG pO2 129 H Sodium Potassium Chloride Carbon Dioxide 21 L BUN 25 H Creatinine 0.4 L Glucose 123 H POC Glucose Calcium 8.3 L Magnesium Direct Bilirubin AST ALT Alkaline Phosphatase Total Creatine Kinase CK-MB (CK-2) CK-MB (CK-2) Rel Index Troponin T C-Reactive Protein Total Protein Albumin Triglycerides Ur Specific [place] Urine WBC (Auto) Miscellaneous Test 04/18/17 04/18/17 04/19/17 17:10 23:40 04:36 WBC RBC 3.21 L Hgb 10.2 L Hct 30.4 L MCV 95 H MCH Plt Count 131 L Lymph % (Auto) 12.1 L Eos % (Auto) 4.7 H Baso % (Auto) 2.4 H Lymph # 0.9 L Baso # 0.2 H Seg Neutrophils % 75.0 H Lymphocytes % (Manual) Monocytes % (Manual) Nucleated RBC % Seg Neutrophils # Seg Neutrophils # Man Monocytes # (Manual) PT INR Activated Clotting Time POC ABG pH POC ABG pCO2 POC ABG pO2 Sodium Potassium Chloride Carbon Dioxide BUN Creatinine Glucose POC Glucose 135 H 157 H Calcium Magnesium Direct Bilirubin AST ALT Alkaline Phosphatase Total Creatine Kinase CK-MB (CK-2) CK-MB (CK-2) Rel Index Troponin T C-Reactive Protein Total Protein Albumin Triglycerides Ur Specific [place] Urine WBC (Auto) Miscellaneous Test 04/19/17 04/19/17 04/19/17 04:36 05:12 06:50 WBC RBC Hgb Hct MCV MCH Plt Count Lymph % (Auto) Eos % (Auto) Baso % (Auto) Lymph # Baso # Seg Neutrophils % Lymphocytes % (Manual) Monocytes % (Manual) Nucleated RBC % Seg Neutrophils # Seg Neutrophils # Man Monocytes # (Manual) PT INR Activated Clotting Time POC ABG pH 7.516 H POC ABG pCO2 28.0 L POC ABG pO2 Sodium Potassium Chloride Carbon Dioxide 21 L BUN 23 H Creatinine 0.2 L Glucose 137 H POC Glucose 131 H Calcium 7.9 L Magnesium Direct Bilirubin AST ALT Alkaline Phosphatase Total Creatine Kinase CK-MB (CK-2) CK-MB (CK-2) Rel Index Troponin T C-Reactive Protein Total Protein Albumin Triglycerides Ur Specific [place] Urine WBC (Auto) Miscellaneous Test 04/19/17 04/19/17 04/20/17 12:36 17:42 00:12 WBC RBC Hgb Hct MCV MCH Plt Count Lymph % (Auto) Eos % (Auto) Baso % (Auto) Lymph # Baso # Seg Neutrophils % Lymphocytes % (Manual) Monocytes % (Manual) Nucleated RBC % Seg Neutrophils # Seg Neutrophils # Man Monocytes # (Manual) PT INR Activated Clotting Time POC ABG pH POC ABG pCO2 POC ABG pO2 Sodium Potassium Chloride Carbon Dioxide BUN Creatinine Glucose POC Glucose 128 H 140 H 132 H Calcium Magnesium Direct Bilirubin AST ALT Alkaline Phosphatase Total Creatine Kinase CK-MB (CK-2) CK-MB (CK-2) Rel Index Troponin T C-Reactive Protein Total Protein Albumin Triglycerides Ur Specific [place] Urine WBC (Auto) Miscellaneous Test 04/20/17 04/20/17 04/20/17 03:35 03:35 05:10 WBC RBC 3.34 L Hgb 10.4 L Hct 31.6 L MCV 95 H MCH Plt Count Lymph % (Auto) 12.9 L Eos % (Auto) Baso % (Auto) Lymph # Baso # Seg Neutrophils % 77.3 H Lymphocytes % (Manual) Monocytes % (Manual) Nucleated RBC % Seg Neutrophils # Seg Neutrophils # Man Monocytes # (Manual) PT INR Activated Clotting Time POC ABG pH POC ABG pCO2 POC ABG pO2 Sodium Potassium Chloride Carbon Dioxide BUN Creatinine 0.3 L Glucose 155 H POC Glucose 135 H Calcium 7.8 L Magnesium Direct Bilirubin AST ALT Alkaline Phosphatase Total Creatine Kinase CK-MB (CK-2) CK-MB (CK-2) Rel Index Troponin T C-Reactive Protein Total Protein Albumin Triglycerides Ur Specific [place] Urine WBC (Auto) Miscellaneous Test 04/20/17 04/20/17 04/21/17 12:49 18:21 00:05 WBC RBC Hgb Hct MCV MCH Plt Count Lymph % (Auto) Eos % (Auto) Baso % (Auto) Lymph # Baso # Seg Neutrophils % Lymphocytes % (Manual) Monocytes % (Manual) Nucleated RBC % Seg Neutrophils # Seg Neutrophils # Man Monocytes # (Manual) PT INR Activated Clotting Time POC ABG pH POC ABG pCO2 POC ABG pO2 Sodium Potassium Chloride Carbon Dioxide BUN Creatinine Glucose POC Glucose 155 H 165 H 141 H Calcium Magnesium Direct Bilirubin AST ALT Alkaline Phosphatase Total Creatine Kinase CK-MB (CK-2) CK-MB (CK-2) Rel Index Troponin T C-Reactive Protein Total Protein Albumin Triglycerides Ur Specific [place] Urine WBC (Auto) Miscellaneous Test 04/21/17 04/21/17 04/21/17 06:00 12:11 17:04 WBC RBC Hgb Hct MCV MCH Plt Count Lymph % (Auto) Eos % (Auto) Baso % (Auto) Lymph # Baso # Seg Neutrophils % Lymphocytes % (Manual) Monocytes % (Manual) Nucleated RBC % Seg Neutrophils # Seg Neutrophils # Man Monocytes # (Manual) PT INR Activated Clotting Time POC ABG pH POC ABG pCO2 POC ABG pO2 Sodium Potassium Chloride Carbon Dioxide BUN Creatinine Glucose POC Glucose 152 H 165 H 156 H Calcium Magnesium Direct Bilirubin AST ALT Alkaline Phosphatase Total Creatine Kinase CK-MB (CK-2) CK-MB (CK-2) Rel Index Troponin T C-Reactive Protein Total Protein Albumin Triglycerides Ur Specific [place] Urine WBC (Auto) Miscellaneous Test 04/21/17 04/21/17 04/22/17 22:00 23:59 05:49 WBC RBC Hgb Hct MCV MCH Plt Count Lymph % (Auto) Eos % (Auto) Baso % (Auto) Lymph # Baso # Seg Neutrophils % Lymphocytes % (Manual) Monocytes % (Manual) Nucleated RBC % Seg Neutrophils # Seg Neutrophils # Man Monocytes # (Manual) PT INR Activated Clotting Time POC ABG pH POC ABG pCO2 POC ABG pO2 Sodium Potassium Chloride Carbon Dioxide BUN Creatinine Glucose POC Glucose 166 H 173 H Calcium Magnesium Direct Bilirubin AST ALT Alkaline Phosphatase Total Creatine Kinase CK-MB (CK-2) CK-MB (CK-2) Rel Index Troponin T C-Reactive Protein Total Protein Albumin Triglycerides Ur Specific [place] Urine WBC (Auto) 10.0 H Miscellaneous Test 04/22/17 04/22/17 04/23/17 11:11 18:04 00:37 WBC RBC Hgb Hct MCV MCH Plt Count Lymph % (Auto) Eos % (Auto) Baso % (Auto) Lymph # Baso # Seg Neutrophils % Lymphocytes % (Manual) Monocytes % (Manual) Nucleated RBC % Seg Neutrophils # Seg Neutrophils # Man Monocytes # (Manual) PT INR Activated Clotting Time POC ABG pH POC ABG pCO2 POC ABG pO2 Sodium Potassium Chloride Carbon Dioxide BUN Creatinine Glucose POC Glucose 172 H 140 H 135 H Calcium Magnesium Direct Bilirubin AST ALT Alkaline Phosphatase Total Creatine Kinase CK-MB (CK-2) CK-MB (CK-2) Rel Index Troponin T C-Reactive Protein Total Protein Albumin Triglycerides Ur Specific [place] Urine WBC (Auto) Miscellaneous Test 04/23/17 04/23/17 04/23/17 05:33 06:20 11:10 WBC RBC 3.19 L Hgb 9.9 L Hct 30.0 L MCV MCH Plt Count Lymph % (Auto) 8.0 L Eos % (Auto) Baso % (Auto) Lymph # 0.8 L Baso # Seg Neutrophils % 84.5 H Lymphocytes % (Manual) Monocytes % (Manual) Nucleated RBC % Seg Neutrophils # 8.2 H Seg Neutrophils # Man Monocytes # (Manual) PT INR Activated Clotting Time POC ABG pH POC ABG pCO2 POC ABG pO2 Sodium Potassium Chloride Carbon Dioxide BUN Creatinine Glucose POC Glucose 134 H 134 H Calcium Magnesium Direct Bilirubin AST ALT Alkaline Phosphatase Total Creatine Kinase CK-MB (CK-2) CK-MB (CK-2) Rel Index Troponin T C-Reactive Protein Total Protein Albumin Triglycerides Ur Specific [place] Urine WBC (Auto) Miscellaneous Test 04/23/17 04/24/17 04/24/17 17:26 00:53 06:46 WBC RBC Hgb Hct MCV MCH Plt Count Lymph % (Auto) Eos % (Auto) Baso % (Auto) Lymph # Baso # Seg Neutrophils % Lymphocytes % (Manual) Monocytes % (Manual) Nucleated RBC % Seg Neutrophils # Seg Neutrophils # Man Monocytes # (Manual) PT INR Activated Clotting Time POC ABG pH POC ABG pCO2 POC ABG pO2 Sodium Potassium Chloride Carbon Dioxide BUN Creatinine Glucose POC Glucose 164 H 146 H 125 H Calcium Magnesium Direct Bilirubin AST ALT Alkaline Phosphatase Total Creatine Kinase CK-MB (CK-2) CK-MB (CK-2) Rel Index Troponin T C-Reactive Protein Total Protein Albumin Triglycerides Ur Specific [place] Urine WBC (Auto) Miscellaneous Test 04/24/17 04/24/17 04/24/17 11:55 17:50 23:36 WBC RBC Hgb Hct MCV MCH Plt Count Lymph % (Auto) Eos % (Auto) Baso % (Auto) Lymph # Baso # Seg Neutrophils % Lymphocytes % (Manual) Monocytes % (Manual) Nucleated RBC % Seg Neutrophils # Seg Neutrophils # Man Monocytes # (Manual) PT INR Activated Clotting Time POC ABG pH POC ABG pCO2 POC ABG pO2 Sodium Potassium Chloride Carbon Dioxide BUN Creatinine Glucose POC Glucose 156 H 146 H 131 H Calcium Magnesium Direct Bilirubin AST ALT Alkaline Phosphatase Total Creatine Kinase CK-MB (CK-2) CK-MB (CK-2) Rel Index Troponin T C-Reactive Protein Total Protein Albumin Triglycerides Ur Specific [place] Urine WBC (Auto) Miscellaneous Test 04/25/17 04/25/17 04/25/17 04:51 05:16 07:07 WBC RBC Hgb Hct MCV MCH Plt Count Lymph % (Auto) Eos % (Auto) Baso % (Auto) Lymph # Baso # Seg Neutrophils % Lymphocytes % (Manual) Monocytes % (Manual) Nucleated RBC % Seg Neutrophils # Seg Neutrophils # Man Monocytes # (Manual) PT INR Activated Clotting Time POC ABG pH POC ABG pCO2 POC ABG pO2 Sodium Potassium Chloride Carbon Dioxide BUN Creatinine Glucose POC Glucose 139 H Calcium Magnesium Direct Bilirubin AST 105 H ALT 204 H Alkaline Phosphatase 189 H Total Creatine Kinase CK-MB (CK-2) CK-MB (CK-2) Rel Index Troponin T C-Reactive Protein Total Protein Albumin 2.4 L Triglycerides Ur Specific [place] Urine WBC (Auto) Miscellaneous Test Flexitest 1 H 04/25/17 04/25/17 04/25/17 12:29 17:23 23:32 WBC RBC Hgb Hct MCV MCH Plt Count Lymph % (Auto) Eos % (Auto) Baso % (Auto) Lymph # Baso # Seg Neutrophils % Lymphocytes % (Manual) Monocytes % (Manual) Nucleated RBC % Seg Neutrophils # Seg Neutrophils # Man Monocytes # (Manual) PT INR Activated Clotting Time POC ABG pH POC ABG pCO2 POC ABG pO2 Sodium Potassium Chloride Carbon Dioxide BUN Creatinine Glucose POC Glucose 132 H 133 H 128 H Calcium Magnesium Direct Bilirubin AST ALT Alkaline Phosphatase Total Creatine Kinase CK-MB (CK-2) CK-MB (CK-2) Rel Index Troponin T C-Reactive Protein Total Protein Albumin Triglycerides Ur Specific [place] Urine WBC (Auto) Miscellaneous Test 04/26/17 04/26/1718 05:24 11:28 17:09 WBC RBC Hgb Hct MCV MCH Plt Count Lymph % (Auto) Eos % (Auto) Baso % (Auto) Lymph # Baso # Seg Neutrophils % Lymphocytes % (Manual) Monocytes % (Manual) Nucleated RBC % Seg Neutrophils # Seg Neutrophils # Man Monocytes # (Manual) PT INR Activated Clotting Time POC ABG pH POC ABG pCO2 POC ABG pO2 Sodium Potassium Chloride Carbon Dioxide BUN Creatinine Glucose POC Glucose 132 H 146 H 141 H Calcium Magnesium Direct Bilirubin AST ALT Alkaline Phosphatase Total Creatine Kinase CK-MB (CK-2) CK-MB (CK-2) Rel Index Troponin T C-Reactive Protein Total Protein Albumin Triglycerides Ur Specific [place] Urine WBC (Auto) Miscellaneous Test 04/26/17 04/27/17 04/27/17 23:52 05:40 05:40 WBC RBC 3.22 L Hgb 10.0 L Hct 29.9 L MCV MCH Plt Count Lymph % (Auto) Eos % (Auto) Baso % (Auto) Lymph # Baso # Seg Neutrophils % 76.6 H Lymphocytes % (Manual) Monocytes % (Manual) Nucleated RBC % Seg Neutrophils # Seg Neutrophils # Man Monocytes # (Manual) PT INR Activated Clotting Time POC ABG pH POC ABG pCO2 POC ABG pO2 Sodium Potassium Chloride Carbon Dioxide BUN Creatinine Glucose POC Glucose 140 H Calcium Magnesium Direct Bilirubin AST 66 H ALT 137 H Alkaline Phosphatase 169 H Total Creatine Kinase CK-MB (CK-2) CK-MB (CK-2) Rel Index Troponin T C-Reactive Protein Total Protein 6.2 L Albumin 2.6 L Triglycerides Ur Specific [place] Urine WBC (Auto) Miscellaneous Test 04/27/17 04/27/17 04/27/17 05:40 06:10 11:13 WBC RBC Hgb Hct MCV MCH Plt Count Lymph % (Auto) Eos % (Auto) Baso % (Auto) Lymph # Baso # Seg Neutrophils % Lymphocytes % (Manual) Monocytes % (Manual) Nucleated RBC % Seg Neutrophils # Seg Neutrophils # Man Monocytes # (Manual) PT INR Activated Clotting Time POC ABG pH POC ABG pCO2 POC ABG pO2 Sodium Potassium Chloride Carbon Dioxide BUN Creatinine 0.2 L Glucose 139 H POC Glucose 130 H 151 H Calcium Magnesium Direct Bilirubin AST ALT Alkaline Phosphatase Total Creatine Kinase CK-MB (CK-2) CK-MB (CK-2) Rel Index Troponin T C-Reactive Protein Total Protein Albumin Triglycerides Ur Specific [place] Urine WBC (Auto) Miscellaneous Test 04/27/17 04/27/17 04/28/17 17:37 23:19 05:24 WBC RBC Hgb Hct MCV MCH Plt Count Lymph % (Auto) Eos % (Auto) Baso % (Auto) Lymph # Baso # Seg Neutrophils % Lymphocytes % (Manual) Monocytes % (Manual) Nucleated RBC % Seg Neutrophils # Seg Neutrophils # Man Monocytes # (Manual) PT INR Activated Clotting Time POC ABG pH POC ABG pCO2 POC ABG pO2 Sodium Potassium Chloride Carbon Dioxide BUN Creatinine Glucose POC Glucose 159 H 130 H 132 H Calcium Magnesium Direct Bilirubin AST ALT Alkaline Phosphatase Total Creatine Kinase CK-MB (CK-2) CK-MB (CK-2) Rel Index Troponin T C-Reactive Protein Total Protein Albumin Triglycerides Ur Specific [place] Urine WBC (Auto) Miscellaneous Test 04/28/17 04/28/17 04/28/17 11:15 17:38 23:23 WBC RBC Hgb Hct MCV MCH Plt Count Lymph % (Auto) Eos % (Auto) Baso % (Auto) Lymph # Baso # Seg Neutrophils % Lymphocytes % (Manual) Monocytes % (Manual) Nucleated RBC % Seg Neutrophils # Seg Neutrophils # Man Monocytes # (Manual) PT INR Activated Clotting Time POC ABG pH POC ABG pCO2 POC ABG pO2 Sodium Potassium Chloride Carbon Dioxide BUN Creatinine Glucose POC Glucose 162 H 133 H 138 H Calcium Magnesium Direct Bilirubin AST ALT Alkaline Phosphatase Total Creatine Kinase CK-MB (CK-2) CK-MB (CK-2) Rel Index Troponin T C-Reactive Protein Total Protein Albumin Triglycerides Ur Specific [place] Urine WBC (Auto) Miscellaneous Test 04/29/17 05:15 WBC RBC Hgb Hct MCV MCH Plt Count Lymph % (Auto) Eos % (Auto) Baso % (Auto) Lymph # Baso # Seg Neutrophils % Lymphocytes % (Manual) Monocytes % (Manual) Nucleated RBC % Seg Neutrophils # Seg Neutrophils # Man Monocytes # (Manual) PT INR Activated Clotting Time POC ABG pH POC ABG pCO2 POC ABG pO2 Sodium Potassium Chloride Carbon Dioxide BUN Creatinine Glucose POC Glucose 135 H Calcium Magnesium Direct Bilirubin AST ALT Alkaline Phosphatase Total Creatine Kinase CK-MB (CK-2) CK-MB (CK-2) Rel Index Troponin T C-Reactive Protein Total Protein Albumin Triglycerides Ur Specific [place] Urine WBC (Auto) Miscellaneous Test
[2017-04-29] MEDS: TRANSDERM-SCOP TD SCH (14:25)
[2017-04-29] MEDS: VASELINE LIP THERAPY TP PRN (22:54)
[2017-04-30] MEDS: LOPRESSOR PO SCH ×5 (00:17→23:31)
[2017-04-30] MEDS: NOVOLOG SUB-Q SCH ×5 (00:59→23:32)
[2017-04-30] MEDS: MAXIPIME 2 GM in NACL 0.9% 20 ML IV SCH ×3 (06:59→21:29)
--- NOTE | 2017-04-30 10:01 | Progress Note ---
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 Continue daily PSV trials. This week has failed secondary to tachypnea and now apnea. Will try an additional dose of lasix today and repeat CXR in the AM. 1. Continue PSV trials as tolerated. 2. As per my partner, goal would be T-piece 17/10. Will need trach indefinitely given mental state 3. Continue vent support and management 4. Continue all other cardiac meds 5. Overall prognosis still remains poor given amount of downtime during arrest. CCT 31 minutes. Subjective Date of service: 04/30/17 Principal diagnosis: Acute CO Interval history: No change in mental state. Patient placed back on A/C early afternoon on yesterday for periods of apnea. Still not net negative based on I/O, despite lasix on yesterday. Objective Vital Signs - 12hr 04/29/17 04/29/17 04/29/17 22:00 23:01 23:19 Temperature 97.6 F Pulse Rate 93 H 95 H Pulse Rate [ From Monitor] Respiratory 28 H 27 H Rate Blood Pressure 98/62 103/60 O2 Sat by Pulse 99 Oximetry O2 Sat by Pulse Oximetry [ Assessment] 04/30/17 04/30/17 04/30/17 00:00 00:17 00:24 Temperature Pulse Rate 90 85 97 H Pulse Rate [ From Monitor] Respiratory 25 H Rate Blood Pressure 93/56 93/52 O2 Sat by Pulse 100 Oximetry O2 Sat by Pulse Oximetry [ Assessment] 04/30/17 04/30/17 04/30/17 01:01 02:00 03:01 Temperature Pulse Rate 93 H 96 H 94 H Pulse Rate [ From Monitor] Respiratory 25 H 24 22 Rate Blood Pressure 93/56 93/56 98/66 O2 Sat by Pulse 98 98 97 Oximetry O2 Sat by Pulse Oximetry [ Assessment] 04/30/17 04/30/17 04/30/17 03:27 04:00 05:01 Temperature 99 F Pulse Rate 94 H 88 Pulse Rate [ From Monitor] Respiratory 22 17 Rate Blood Pressure 95/60 95/60 O2 Sat by Pulse 99 Oximetry O2 Sat by Pulse Oximetry [ Assessment] 04/30/17 04/30/17 04/30/17 05:47 06:00 06:59 Temperature Pulse Rate 95 H 93 H 93 H Pulse Rate [ From Monitor] Respiratory 24 Rate Blood Pressure 95/60 93/60 101/52 O2 Sat by Pulse 100 Oximetry O2 Sat by Pulse Oximetry [ Assessment] 04/30/17 04/30/17 07:01 08:00 Temperature 98.6 F Pulse Rate 90 90 Pulse Rate [ 90 From Monitor] Respiratory 23 23 Rate Blood Pressure 93/60 92/57 O2 Sat by Pulse 98 97 Oximetry O2 Sat by Pulse 99 Oximetry [ Assessment] Constitutional: comatose Eyes: non-icteric ENT: oropharynx moist Neck: supple Effort: normal Ascultation: Bilateral: clear, diminished breath sounds ( ), other (coarse BS bilaterally) Percussion: Bilateral: not dull Cardiovascular: regular rate and rhythm (no mrg) Gastrointestinal: normoactive bowel sounds, soft, non-tender, non-distended, other (mild distention) Integumentary: normal, other (multiple tattoos) Extremities: no cyanosis, no edema, pink and warm Neurologic: other (comatose, flaccid extremities, good cough w/ suction) Psychiatric: other (unable to assess) CBC and BMP: 04/27/17 05:40 04/27/17 05:40 ABG, PT/INR, D-dimer: ABG POC ABG pH 7.516 (7.35-7.45) H 04/19/17 06:50 POC ABG pCO2 28.0 (35-45) L 04/19/17 06:50 POC ABG pO2 81 (80-105) 04/19/17 06:50 POC ABG HCO3 22.7 04/19/17 06:50 POC ABG Total CO2 24 04/19/17 06:50 POC ABG O2 Sat 97 04/19/17 06:50 PT/INR, D-dimer PT 14.9 Sec. (12.2-14.9) 04/10/17 04:16 INR 1.11 (0.87-1.13) 04/10/17 04:16 Abnormal lab findings: Abnormal Labs 03/29/17 03/29/17 03/29/17 11:35 11:35 11:40 WBC RBC Hgb Hct MCV 98 H MCH 33 H Plt Count Lymph % (Auto) Eos % (Auto) Baso % (Auto) Lymph # Baso # Seg Neutrophils % Lymphocytes % (Manual) Monocytes % (Manual) 9.0 H Nucleated RBC % 1.0 H Seg Neutrophils # Seg Neutrophils # Man Monocytes # (Manual) 0.9 H PT 15.8 H INR 1.20 H Activated Clotting Time POC ABG pH POC ABG pCO2 POC ABG pO2 Sodium Potassium 2.7 L* Chloride 95.3 L Carbon Dioxide 17 L BUN Creatinine Glucose 435 H POC Glucose Calcium Magnesium Direct Bilirubin AST ALT Alkaline Phosphatase Total Creatine Kinase CK-MB (CK-2) CK-MB (CK-2) Rel Index Troponin T C-Reactive Protein Total Protein 6.1 L Albumin 3.5 L Triglycerides Ur Specific [place] Urine WBC (Auto) Miscellaneous Test 03/29/17 03/29/17 03/29/17 12:34 13:10 13:25 WBC RBC Hgb Hct MCV MCH Plt Count Lymph % (Auto) Eos % (Auto) Baso % (Auto) Lymph # Baso # Seg Neutrophils % Lymphocytes % (Manual) Monocytes % (Manual) Nucleated RBC % Seg Neutrophils # Seg Neutrophils # Man Monocytes # (Manual) PT INR Activated Clotting Time 142 H 169 H 175 H POC ABG pH POC ABG pCO2 POC ABG pO2 Sodium Potassium Chloride Carbon Dioxide BUN Creatinine Glucose POC Glucose Calcium Magnesium Direct Bilirubin AST ALT Alkaline Phosphatase Total Creatine Kinase CK-MB (CK-2) CK-MB (CK-2) Rel Index Troponin T C-Reactive Protein Total Protein Albumin Triglycerides Ur Specific [place] Urine WBC (Auto) Miscellaneous Test 03/29/17 03/29/17 03/29/17 14:50 15:18 19:52 WBC RBC Hgb Hct MCV MCH Plt Count Lymph % (Auto) Eos % (Auto) Baso % (Auto) Lymph # Baso # Seg Neutrophils % Lymphocytes % (Manual) Monocytes % (Manual) Nucleated RBC % Seg Neutrophils # Seg Neutrophils # Man Monocytes # (Manual) PT INR Activated Clotting Time 175 H POC ABG pH 7.293 L POC ABG pCO2 POC ABG pO2 602 H Sodium Potassium Chloride Carbon Dioxide BUN Creatinine Glucose POC Glucose Calcium Magnesium Direct Bilirubin AST ALT Alkaline Phosphatase Total Creatine Kinase 7263 H CK-MB (CK-2) > 300.0 H CK-MB (CK-2) Rel Index 4.1 H Troponin T 8.080 H* D C-Reactive Protein Total Protein Albumin Triglycerides 195 H Ur Specific [place] Urine WBC (Auto) Miscellaneous Test 03/30/17 03/30/17 03/30/17 03:50 03:50 06:19 WBC 19.5 H RBC Hgb Hct MCV MCH Plt Count Lymph % (Auto) Eos % (Auto) Baso % (Auto) Lymph # Baso # Seg Neutrophils % Lymphocytes % (Manual) 7.0 L Monocytes % (Manual) Nucleated RBC % Seg Neutrophils # Seg Neutrophils # Man 12.7 H Monocytes # (Manual) 1.4 H PT INR Activated Clotting Time POC ABG pH POC ABG pCO2 28.2 L POC ABG pO2 108 H Sodium Potassium Chloride 108.9 H Carbon Dioxide 15 L BUN 25 H Creatinine Glucose 158 H POC Glucose Calcium 8.1 L Magnesium Direct Bilirubin AST ALT Alkaline Phosphatase Total Creatine Kinase 7963 H CK-MB (CK-2) > 300.0 H CK-MB (CK-2) Rel Index Troponin T 6.850 H* C-Reactive Protein Total Protein Albumin Triglycerides Ur Specific [place] Urine WBC (Auto) Miscellaneous Test 03/30/17 03/30/17 03/31/17 09:45 16:04 02:19 WBC RBC Hgb Hct MCV MCH Plt Count Lymph % (Auto) Eos % (Auto) Baso % (Auto) Lymph # Baso # Seg Neutrophils % Lymphocytes % (Manual) Monocytes % (Manual) Nucleated RBC % Seg Neutrophils # Seg Neutrophils # Man Monocytes # (Manual) PT INR Activated Clotting Time POC ABG pH POC ABG pCO2 POC ABG pO2 Sodium Potassium Chloride Carbon Dioxide BUN Creatinine Glucose POC Glucose 137 H Calcium Magnesium Direct Bilirubin AST ALT Alkaline Phosphatase Total Creatine Kinase CK-MB (CK-2) CK-MB (CK-2) Rel Index Troponin T C-Reactive Protein 21.80 H Total Protein Albumin Triglycerides Ur Specific [place] 1.031 H Urine WBC (Auto) Miscellaneous Test 03/31/17 03/31/17 03/31/17 03:57 06:54 09:22 WBC RBC Hgb Hct MCV MCH Plt Count Lymph % (Auto) Eos % (Auto) Baso % (Auto) Lymph # Baso # Seg Neutrophils % Lymphocytes % (Manual) Monocytes % (Manual) Nucleated RBC % Seg Neutrophils # Seg Neutrophils # Man Monocytes # (Manual) PT INR Activated Clotting Time POC ABG pH 7.475 H POC ABG pCO2 25.4 L POC ABG pO2 62 L Sodium Potassium Chloride Carbon Dioxide 19 L BUN 22 H Creatinine 0.6 L Glucose 148 H POC Glucose 143 H Calcium 8.3 L Magnesium Direct Bilirubin AST ALT Alkaline Phosphatase Total Creatine Kinase CK-MB (CK-2) CK-MB (CK-2) Rel Index Troponin T C-Reactive Protein Total Protein Albumin Triglycerides Ur Specific [place] Urine WBC (Auto) Miscellaneous Test 03/31/17 03/31/17 03/31/17 11:40 17:47 23:38 WBC RBC Hgb Hct MCV MCH Plt Count Lymph % (Auto) Eos % (Auto) Baso % (Auto) Lymph # Baso # Seg Neutrophils % Lymphocytes % (Manual) Monocytes % (Manual) Nucleated RBC % Seg Neutrophils # Seg Neutrophils # Man Monocytes # (Manual) PT INR Activated Clotting Time POC ABG pH POC ABG pCO2 POC ABG pO2 Sodium Potassium Chloride Carbon Dioxide BUN Creatinine Glucose POC Glucose 127 H 137 H 148 H Calcium Magnesium Direct Bilirubin AST ALT Alkaline Phosphatase Total Creatine Kinase CK-MB (CK-2) CK-MB (CK-2) Rel Index Troponin T C-Reactive Protein Total Protein Albumin Triglycerides Ur Specific [place] Urine WBC (Auto) Miscellaneous Test 04/01/17 04/01/17 04/01/17 04:29 05:01 11:54 WBC RBC Hgb Hct MCV MCH Plt Count Lymph % (Auto) Eos % (Auto) Baso % (Auto) Lymph # Baso # Seg Neutrophils % Lymphocytes % (Manual) Monocytes % (Manual) Nucleated RBC % Seg Neutrophils # Seg Neutrophils # Man Monocytes # (Manual) PT INR Activated Clotting Time POC ABG pH 7.513 H POC ABG pCO2 22.1 L POC ABG pO2 64 L Sodium Potassium Chloride Carbon Dioxide BUN Creatinine Glucose POC Glucose 121 H Calcium Magnesium Direct Bilirubin AST ALT Alkaline Phosphatase Total Creatine Kinase CK-MB (CK-2) CK-MB (CK-2) Rel Index Troponin T C-Reactive Protein Total Protein Albumin Triglycerides 151 H Ur Specific [place] Urine WBC (Auto) Miscellaneous Test 04/01/17 04/02/17 04/02/17 18:17 00:11 04:52 WBC RBC Hgb Hct MCV MCH Plt Count Lymph % (Auto) Eos % (Auto) Baso % (Auto) Lymph # Baso # Seg Neutrophils % Lymphocytes % (Manual) Monocytes % (Manual) Nucleated RBC % Seg Neutrophils # Seg Neutrophils # Man Monocytes # (Manual) PT INR Activated Clotting Time POC ABG pH 7.524 H POC ABG pCO2 25.5 L POC ABG pO2 66 L Sodium Potassium Chloride Carbon Dioxide BUN Creatinine Glucose POC Glucose 117 H 122 H Calcium Magnesium Direct Bilirubin AST ALT Alkaline Phosphatase Total Creatine Kinase CK-MB (CK-2) CK-MB (CK-2) Rel Index Troponin T C-Reactive Protein Total Protein Albumin Triglycerides Ur Specific [place] Urine WBC (Auto) Miscellaneous Test 04/02/17 04/02/17 04/02/17 05:18 10:41 12:19 WBC RBC Hgb Hct MCV MCH Plt Count Lymph % (Auto) Eos % (Auto) Baso % (Auto) Lymph # Baso # Seg Neutrophils % Lymphocytes % (Manual) Monocytes % (Manual) Nucleated RBC % Seg Neutrophils # Seg Neutrophils # Man Monocytes # (Manual) PT INR Activated Clotting Time POC ABG pH 7.534 H POC ABG pCO2 27.4 L POC ABG pO2 Sodium Potassium Chloride Carbon Dioxide BUN Creatinine Glucose POC Glucose 132 H 129 H Calcium Magnesium Direct Bilirubin AST ALT Alkaline Phosphatase Total Creatine Kinase CK-MB (CK-2) CK-MB (CK-2) Rel Index Troponin T C-Reactive Protein Total Protein Albumin Triglycerides Ur Specific [place] Urine WBC (Auto) Miscellaneous Test 04/02/17 04/03/17 04/03/17 18:05 00:08 05:09 WBC RBC Hgb Hct MCV MCH Plt Count Lymph % (Auto) Eos % (Auto) Baso % (Auto) Lymph # Baso # Seg Neutrophils % Lymphocytes % (Manual) Monocytes % (Manual) Nucleated RBC % Seg Neutrophils # Seg Neutrophils # Man Monocytes # (Manual) PT INR Activated Clotting Time POC ABG pH 7.455 H POC ABG pCO2 33.2 L POC ABG pO2 120 H Sodium Potassium Chloride Carbon Dioxide BUN Creatinine Glucose POC Glucose 136 H 128 H Calcium Magnesium Direct Bilirubin AST ALT Alkaline Phosphatase Total Creatine Kinase CK-MB (CK-2) CK-MB (CK-2) Rel Index Troponin T C-Reactive Protein Total Protein Albumin Triglycerides Ur Specific [place] Urine WBC (Auto) Miscellaneous Test 04/03/17 04/03/17 04/03/17 06:32 11:54 12:16 WBC 11.9 H RBC Hgb Hct MCV MCH Plt Count 125 L Lymph % (Auto) 4.8 L Eos % (Auto) Baso % (Auto) Lymph # 0.6 L Baso # Seg Neutrophils % 86.7 H Lymphocytes % (Manual) Monocytes % (Manual) Nucleated RBC % Seg Neutrophils # 10.3 H Seg Neutrophils # Man Monocytes # (Manual) PT INR Activated Clotting Time POC ABG pH POC ABG pCO2 POC ABG pO2 Sodium Potassium Chloride Carbon Dioxide BUN Creatinine Glucose POC Glucose 138 H 143 H Calcium Magnesium Direct Bilirubin AST ALT Alkaline Phosphatase Total Creatine Kinase CK-MB (CK-2) CK-MB (CK-2) Rel Index Troponin T C-Reactive Protein Total Protein Albumin Triglycerides Ur Specific [place] Urine WBC (Auto) Miscellaneous Test 04/03/17 04/03/17 04/04/17 17:33 23:59 04:34 WBC RBC Hgb Hct MCV MCH Plt Count Lymph % (Auto) Eos % (Auto) Baso % (Auto) Lymph # Baso # Seg Neutrophils % Lymphocytes % (Manual) Monocytes % (Manual) Nucleated RBC % Seg Neutrophils # Seg Neutrophils # Man Monocytes # (Manual) PT INR Activated Clotting Time POC ABG pH 7.457 H POC ABG pCO2 29.8 L POC ABG pO2 76 L Sodium Potassium Chloride Carbon Dioxide BUN Creatinine Glucose POC Glucose 130 H 155 H Calcium Magnesium Direct Bilirubin AST ALT Alkaline Phosphatase Total Creatine Kinase CK-MB (CK-2) CK-MB (CK-2) Rel Index Troponin T C-Reactive Protein Total Protein Albumin Triglycerides Ur Specific [place] Urine WBC (Auto) Miscellaneous Test 04/04/17 04/04/17 04/04/17 05:27 12:22 18:18 WBC RBC Hgb Hct MCV MCH Plt Count Lymph % (Auto) Eos % (Auto) Baso % (Auto) Lymph # Baso # Seg Neutrophils % Lymphocytes % (Manual) Monocytes % (Manual) Nucleated RBC % Seg Neutrophils # Seg Neutrophils # Man Monocytes # (Manual) PT INR Activated Clotting Time POC ABG pH POC ABG pCO2 POC ABG pO2 Sodium Potassium Chloride Carbon Dioxide BUN Creatinine Glucose POC Glucose 164 H 146 H 130 H Calcium Magnesium Direct Bilirubin AST ALT Alkaline Phosphatase Total Creatine Kinase CK-MB (CK-2) CK-MB (CK-2) Rel Index Troponin T C-Reactive Protein Total Protein Albumin Triglycerides Ur Specific [place] Urine WBC (Auto) Miscellaneous Test 04/05/17 04/05/17 04/05/17 04:43 05:28 11:36 WBC RBC Hgb Hct MCV MCH Plt Count Lymph % (Auto) Eos % (Auto) Baso % (Auto) Lymph # Baso # Seg Neutrophils % Lymphocytes % (Manual) Monocytes % (Manual) Nucleated RBC % Seg Neutrophils # Seg Neutrophils # Man Monocytes # (Manual) PT INR Activated Clotting Time POC ABG pH 7.479 H POC ABG pCO2 33.5 L POC ABG pO2 76 L Sodium Potassium Chloride Carbon Dioxide BUN Creatinine Glucose POC Glucose 145 H 136 H Calcium Magnesium Direct Bilirubin AST ALT Alkaline Phosphatase Total Creatine Kinase CK-MB (CK-2) CK-MB (CK-2) Rel Index Troponin T C-Reactive Protein Total Protein Albumin Triglycerides Ur Specific [place] Urine WBC (Auto) Miscellaneous Test 04/05/17 04/06/17 04/06/17 17:58 00:16 05:26 WBC RBC Hgb Hct MCV MCH Plt Count Lymph % (Auto) Eos % (Auto) Baso % (Auto) Lymph # Baso # Seg Neutrophils % Lymphocytes % (Manual) Monocytes % (Manual) Nucleated RBC % Seg Neutrophils # Seg Neutrophils # Man Monocytes # (Manual) PT INR Activated Clotting Time POC ABG pH POC ABG pCO2 POC ABG pO2 Sodium Potassium Chloride Carbon Dioxide BUN Creatinine Glucose POC Glucose 130 H 159 H 146 H Calcium Magnesium Direct Bilirubin AST ALT Alkaline Phosphatase Total Creatine Kinase CK-MB (CK-2) CK-MB (CK-2) Rel Index Troponin T C-Reactive Protein Total Protein Albumin Triglycerides Ur Specific [place] Urine WBC (Auto) Miscellaneous Test 04/06/17 04/06/17 04/07/17 13:11 16:54 11:45 WBC RBC Hgb Hct MCV MCH Plt Count Lymph % (Auto) Eos % (Auto) Baso % (Auto) Lymph # Baso # Seg Neutrophils % Lymphocytes % (Manual) Monocytes % (Manual) Nucleated RBC % Seg Neutrophils # Seg Neutrophils # Man Monocytes # (Manual) PT INR Activated Clotting Time POC ABG pH 7.517 H POC ABG pCO2 32.1 L POC ABG pO2 Sodium Potassium Chloride Carbon Dioxide BUN Creatinine Glucose POC Glucose 132 H 123 H Calcium Magnesium Direct Bilirubin AST ALT Alkaline Phosphatase Total Creatine Kinase CK-MB (CK-2) CK-MB (CK-2) Rel Index Troponin T C-Reactive Protein Total Protein Albumin Triglycerides Ur Specific [place] Urine WBC (Auto) Miscellaneous Test 04/07/17 04/07/17 04/07/17 12:51 17:40 23:55 WBC RBC Hgb Hct MCV MCH Plt Count Lymph % (Auto) Eos % (Auto) Baso % (Auto) Lymph # Baso # Seg Neutrophils % Lymphocytes % (Manual) Monocytes % (Manual) Nucleated RBC % Seg Neutrophils # Seg Neutrophils # Man Monocytes # (Manual) PT INR Activated Clotting Time POC ABG pH POC ABG pCO2 POC ABG pO2 Sodium Potassium Chloride Carbon Dioxide BUN Creatinine Glucose POC Glucose 138 H 154 H 143 H Calcium Magnesium Direct Bilirubin AST ALT Alkaline Phosphatase Total Creatine Kinase CK-MB (CK-2) CK-MB (CK-2) Rel Index Troponin T C-Reactive Protein Total Protein Albumin Triglycerides Ur Specific [place] Urine WBC (Auto) Miscellaneous Test 04/08/17 04/08/17 04/08/17 05:27 11:14 17:44 WBC RBC Hgb Hct MCV MCH Plt Count Lymph % (Auto) Eos % (Auto) Baso % (Auto) Lymph # Baso # Seg Neutrophils % Lymphocytes % (Manual) Monocytes % (Manual) Nucleated RBC % Seg Neutrophils # Seg Neutrophils # Man Monocytes # (Manual) PT INR Activated Clotting Time POC ABG pH POC ABG pCO2 POC ABG pO2 Sodium Potassium Chloride Carbon Dioxide BUN Creatinine Glucose POC Glucose 142 H 153 H 129 H Calcium Magnesium Direct Bilirubin AST ALT Alkaline Phosphatase Total Creatine Kinase CK-MB (CK-2) CK-MB (CK-2) Rel Index Troponin T C-Reactive Protein Total Protein Albumin Triglycerides Ur Specific [place] Urine WBC (Auto) Miscellaneous Test 04/09/17 04/09/17 04/09/17 08:20 11:21 17:37 WBC RBC Hgb Hct MCV MCH Plt Count Lymph % (Auto) Eos % (Auto) Baso % (Auto) Lymph # Baso # Seg Neutrophils % Lymphocytes % (Manual) Monocytes % (Manual) Nucleated RBC % Seg Neutrophils # Seg Neutrophils # Man Monocytes # (Manual) PT INR Activated Clotting Time POC ABG pH POC ABG pCO2 POC ABG pO2 Sodium 147 H Potassium Chloride 108.8 H Carbon Dioxide BUN 39 H Creatinine 0.5 L Glucose 138 H POC Glucose 152 H 109 H Calcium Magnesium Direct Bilirubin AST ALT Alkaline Phosphatase Total Creatine Kinase CK-MB (CK-2) CK-MB (CK-2) Rel Index Troponin T C-Reactive Protein Total Protein Albumin Triglycerides Ur Specific [place] Urine WBC (Auto) Miscellaneous Test 04/10/17 04/10/17 04/10/17 00:13 04:16 04:16 WBC RBC Hgb 11.5 L Hct MCV 96 H MCH Plt Count 103 L Lymph % (Auto) 11.1 L Eos % (Auto) Baso % (Auto) Lymph # Baso # Seg Neutrophils % 81.5 H Lymphocytes % (Manual) Monocytes % (Manual) Nucleated RBC % Seg Neutrophils # 8.8 H Seg Neutrophils # Man Monocytes # (Manual) PT INR Activated Clotting Time POC ABG pH POC ABG pCO2 POC ABG pO2 Sodium 148 H Potassium Chloride 109.0 H Carbon Dioxide BUN 36 H Creatinine 0.5 L Glucose 131 H POC Glucose 127 H Calcium 8.1 L Magnesium 2.40 H Direct Bilirubin AST 206 H ALT 228 H Alkaline Phosphatase 178 H Total Creatine Kinase CK-MB (CK-2) CK-MB (CK-2) Rel Index Troponin T C-Reactive Protein Total Protein Albumin 2.8 L Triglycerides Ur Specific [place] Urine WBC (Auto) Miscellaneous Test 04/10/17 04/10/17 04/10/17 06:01 11:57 18:27 WBC RBC Hgb Hct MCV MCH Plt Count Lymph % (Auto) Eos % (Auto) Baso % (Auto) Lymph # Baso # Seg Neutrophils % Lymphocytes % (Manual) Monocytes % (Manual) Nucleated RBC % Seg Neutrophils # Seg Neutrophils # Man Monocytes # (Manual) PT INR Activated Clotting Time POC ABG pH POC ABG pCO2 POC ABG pO2 Sodium Potassium Chloride Carbon Dioxide BUN Creatinine Glucose POC Glucose 108 H 154 H 130 H Calcium Magnesium Direct Bilirubin AST ALT Alkaline Phosphatase Total Creatine Kinase CK-MB (CK-2) CK-MB (CK-2) Rel Index Troponin T C-Reactive Protein Total Protein Albumin Triglycerides Ur Specific [place] Urine WBC (Auto) Miscellaneous Test 04/11/17 04/11/17 04/12/17 12:25 17:10 00:22 WBC RBC Hgb Hct MCV MCH Plt Count Lymph % (Auto) Eos % (Auto) Baso % (Auto) Lymph # Baso # Seg Neutrophils % Lymphocytes % (Manual) Monocytes % (Manual) Nucleated RBC % Seg Neutrophils # Seg Neutrophils # Man Monocytes # (Manual) PT INR Activated Clotting Time POC ABG pH POC ABG pCO2 POC ABG pO2 Sodium Potassium Chloride Carbon Dioxide BUN Creatinine Glucose POC Glucose 107 H 129 H 128 H Calcium Magnesium Direct Bilirubin AST ALT Alkaline Phosphatase Total Creatine Kinase CK-MB (CK-2) CK-MB (CK-2) Rel Index Troponin T C-Reactive Protein Total Protein Albumin Triglycerides Ur Specific [place] Urine WBC (Auto) Miscellaneous Test 04/12/17 04/12/17 04/12/17 05:00 11:57 17:47 WBC RBC Hgb Hct MCV MCH Plt Count Lymph % (Auto) Eos % (Auto) Baso % (Auto) Lymph # Baso # Seg Neutrophils % Lymphocytes % (Manual) Monocytes % (Manual) Nucleated RBC % Seg Neutrophils # Seg Neutrophils # Man Monocytes # (Manual) PT INR Activated Clotting Time POC ABG pH POC ABG pCO2 POC ABG pO2 Sodium Potassium Chloride Carbon Dioxide BUN Creatinine Glucose POC Glucose 140 H 142 H Calcium Magnesium Direct Bilirubin AST 158 H ALT 184 H Alkaline Phosphatase 170 H Total Creatine Kinase CK-MB (CK-2) CK-MB (CK-2) Rel Index Troponin T C-Reactive Protein Total Protein Albumin 2.8 L Triglycerides Ur Specific [place] Urine WBC (Auto) Miscellaneous Test 04/12/17 04/12/17 04/13/17 21:36 21:36 01:37 WBC RBC Hgb Hct MCV MCH Plt Count Lymph % (Auto) Eos % (Auto) Baso % (Auto) Lymph # Baso # Seg Neutrophils % Lymphocytes % (Manual) Monocytes % (Manual) Nucleated RBC % Seg Neutrophils # Seg Neutrophils # Man Monocytes # (Manual) PT INR Activated Clotting Time POC ABG pH POC ABG pCO2 POC ABG pO2 Sodium Potassium Chloride Carbon Dioxide BUN Creatinine Glucose POC Glucose 126 H Calcium Magnesium Direct Bilirubin AST ALT Alkaline Phosphatase Total Creatine Kinase 1404 H CK-MB (CK-2) 8.0 H CK-MB (CK-2) Rel Index Troponin T 0.767 H* C-Reactive Protein Total Protein Albumin Triglycerides Ur Specific [place] Urine WBC (Auto) Miscellaneous Test 04/13/17 04/13/17 04/13/17 04:45 04:52 12:17 WBC RBC Hgb Hct MCV MCH Plt Count Lymph % (Auto) Eos % (Auto) Baso % (Auto) Lymph # Baso # Seg Neutrophils % Lymphocytes % (Manual) Monocytes % (Manual) Nucleated RBC % Seg Neutrophils # Seg Neutrophils # Man Monocytes # (Manual) PT INR Activated Clotting Time POC ABG pH POC ABG pCO2 POC ABG pO2 Sodium 148 H Potassium Chloride 112.8 H Carbon Dioxide BUN 33 H Creatinine 0.4 L Glucose 121 H POC Glucose 126 H 149 H Calcium Magnesium Direct Bilirubin AST 160 H ALT 189 H Alkaline Phosphatase 166 H Total Creatine Kinase CK-MB (CK-2) CK-MB (CK-2) Rel Index Troponin T C-Reactive Protein Total Protein Albumin 2.6 L Triglycerides Ur Specific [place] Urine WBC (Auto) Miscellaneous Test 04/13/17 04/14/17 04/14/17 17:45 00:20 00:45 WBC RBC Hgb Hct MCV MCH Plt Count Lymph % (Auto) Eos % (Auto) Baso % (Auto) Lymph # Baso # Seg Neutrophils % Lymphocytes % (Manual) Monocytes % (Manual) Nucleated RBC % Seg Neutrophils # Seg Neutrophils # Man Monocytes # (Manual) PT INR Activated Clotting Time POC ABG pH POC ABG pCO2 POC ABG pO2 Sodium Potassium Chloride Carbon Dioxide BUN Creatinine Glucose POC Glucose 130 H 144 H 144 H Calcium Magnesium Direct Bilirubin AST ALT Alkaline Phosphatase Total Creatine Kinase CK-MB (CK-2) CK-MB (CK-2) Rel Index Troponin T C-Reactive Protein Total Protein Albumin Triglycerides Ur Specific [place] Urine WBC (Auto) Miscellaneous Test 04/14/17 04/14/17 04/14/17 05:40 11:06 11:31 WBC RBC Hgb Hct MCV MCH Plt Count Lymph % (Auto) Eos % (Auto) Baso % (Auto) Lymph # Baso # Seg Neutrophils % Lymphocytes % (Manual) Monocytes % (Manual) Nucleated RBC % Seg Neutrophils # Seg Neutrophils # Man Monocytes # (Manual) PT INR Activated Clotting Time POC ABG pH POC ABG pCO2 POC ABG pO2 Sodium Potassium Chloride Carbon Dioxide BUN Creatinine Glucose POC Glucose 139 H 123 H Calcium Magnesium Direct Bilirubin AST ALT Alkaline Phosphatase Total Creatine Kinase CK-MB (CK-2) CK-MB (CK-2) Rel Index Troponin T C-Reactive Protein Total Protein Albumin Triglycerides Ur Specific [place] 1.033 H Urine WBC (Auto) > 182.0 H Miscellaneous Test 04/14/17 04/14/17 04/15/17 18:00 23:52 05:15 WBC 12.5 H RBC 3.38 L Hgb 10.6 L Hct 32.7 L MCV 97 H MCH Plt Count 107 L Lymph % (Auto) 8.7 L Eos % (Auto) Baso % (Auto) Lymph # 1.1 L Baso # Seg Neutrophils % 86.1 H Lymphocytes % (Manual) Monocytes % (Manual) Nucleated RBC % Seg Neutrophils # 10.7 H Seg Neutrophils # Man Monocytes # (Manual) PT INR Activated Clotting Time POC ABG pH POC ABG pCO2 POC ABG pO2 Sodium Potassium Chloride Carbon Dioxide BUN Creatinine Glucose POC Glucose 133 H 133 H Calcium Magnesium Direct Bilirubin AST ALT Alkaline Phosphatase Total Creatine Kinase CK-MB (CK-2) CK-MB (CK-2) Rel Index Troponin T C-Reactive Protein Total Protein Albumin Triglycerides Ur Specific [place] Urine WBC (Auto) Miscellaneous Test 04/15/17 04/15/17 04/15/17 05:15 05:25 11:50 WBC RBC Hgb Hct MCV MCH Plt Count Lymph % (Auto) Eos % (Auto) Baso % (Auto) Lymph # Baso # Seg Neutrophils % Lymphocytes % (Manual) Monocytes % (Manual) Nucleated RBC % Seg Neutrophils # Seg Neutrophils # Man Monocytes # (Manual) PT INR Activated Clotting Time POC ABG pH POC ABG pCO2 POC ABG pO2 Sodium 149 H Potassium 3.5 L Chloride 114.1 H Carbon Dioxide 21 L BUN 29 H Creatinine 0.4 L Glucose 128 H POC Glucose 133 H 107 H Calcium 8.3 L Magnesium Direct Bilirubin 0.4 H AST 149 H ALT 182 H Alkaline Phosphatase 143 H Total Creatine Kinase CK-MB (CK-2) CK-MB (CK-2) Rel Index Troponin T C-Reactive Protein Total Protein Albumin 2.5 L Triglycerides Ur Specific [place] Urine WBC (Auto) Miscellaneous Test 04/15/17 04/16/17 04/16/17 16:55 00:02 03:17 WBC RBC 3.39 L Hgb 10.5 L Hct 32.4 L MCV 96 H MCH Plt Count 106 L Lymph % (Auto) 6.7 L Eos % (Auto) Baso % (Auto) Lymph # 0.6 L Baso # Seg Neutrophils % 86.8 H Lymphocytes % (Manual) Monocytes % (Manual) Nucleated RBC % Seg Neutrophils # 8.2 H Seg Neutrophils # Man Monocytes # (Manual) PT INR Activated Clotting Time POC ABG pH POC ABG pCO2 POC ABG pO2 Sodium Potassium Chloride Carbon Dioxide BUN Creatinine Glucose POC Glucose 146 H 148 H Calcium Magnesium Direct Bilirubin AST ALT Alkaline Phosphatase Total Creatine Kinase CK-MB (CK-2) CK-MB (CK-2) Rel Index Troponin T C-Reactive Protein Total Protein Albumin Triglycerides Ur Specific [place] Urine WBC (Auto) Miscellaneous Test 04/16/17 04/16/17 04/16/17 03:17 05:19 11:13 WBC RBC Hgb Hct MCV MCH Plt Count Lymph % (Auto) Eos % (Auto) Baso % (Auto) Lymph # Baso # Seg Neutrophils % Lymphocytes % (Manual) Monocytes % (Manual) Nucleated RBC % Seg Neutrophils # Seg Neutrophils # Man Monocytes # (Manual) PT INR Activated Clotting Time POC ABG pH POC ABG pCO2 POC ABG pO2 Sodium 149 H Potassium Chloride 111.1 H Carbon Dioxide 20 L BUN 27 H Creatinine 0.3 L Glucose 156 H POC Glucose 171 H 169 H Calcium 8.3 L Magnesium Direct Bilirubin AST ALT Alkaline Phosphatase Total Creatine Kinase CK-MB (CK-2) CK-MB (CK-2) Rel Index Troponin T C-Reactive Protein Total Protein Albumin Triglycerides Ur Specific [place] Urine WBC (Auto) Miscellaneous Test 04/16/17 04/17/17 04/17/17 17:03 00:00 05:09 WBC RBC Hgb Hct MCV MCH Plt Count Lymph % (Auto) Eos % (Auto) Baso % (Auto) Lymph # Baso # Seg Neutrophils % Lymphocytes % (Manual) Monocytes % (Manual) Nucleated RBC % Seg Neutrophils # Seg Neutrophils # Man Monocytes # (Manual) PT INR Activated Clotting Time POC ABG pH POC ABG pCO2 POC ABG pO2 Sodium Potassium Chloride Carbon Dioxide BUN Creatinine Glucose POC Glucose 151 H 165 H 145 H Calcium Magnesium Direct Bilirubin AST ALT Alkaline Phosphatase Total Creatine Kinase CK-MB (CK-2) CK-MB (CK-2) Rel Index Troponin T C-Reactive Protein Total Protein Albumin Triglycerides Ur Specific [place] Urine WBC (Auto) Miscellaneous Test 04/17/17 04/17/17 04/18/17 11:38 17:47 00:01 WBC RBC Hgb Hct MCV MCH Plt Count Lymph % (Auto) Eos % (Auto) Baso % (Auto) Lymph # Baso # Seg Neutrophils % Lymphocytes % (Manual) Monocytes % (Manual) Nucleated RBC % Seg Neutrophils # Seg Neutrophils # Man Monocytes # (Manual) PT INR Activated Clotting Time POC ABG pH POC ABG pCO2 POC ABG pO2 Sodium Potassium Chloride Carbon Dioxide BUN Creatinine Glucose POC Glucose 170 H 161 H 131 H Calcium Magnesium Direct Bilirubin AST ALT Alkaline Phosphatase Total Creatine Kinase CK-MB (CK-2) CK-MB (CK-2) Rel Index Troponin T C-Reactive Protein Total Protein Albumin Triglycerides Ur Specific [place] Urine WBC (Auto) Miscellaneous Test 04/18/17 04/18/17 04/18/17 03:55 03:55 05:30 WBC RBC 3.05 L Hgb 9.8 L Hct 29.0 L MCV 95 H MCH Plt Count 113 L Lymph % (Auto) Eos % (Auto) 5.3 H Baso % (Auto) Lymph # Baso # Seg Neutrophils % 71.5 H Lymphocytes % (Manual) Monocytes % (Manual) Nucleated RBC % Seg Neutrophils # Seg Neutrophils # Man Monocytes # (Manual) PT INR Activated Clotting Time POC ABG pH 7.460 H POC ABG pCO2 30.8 L POC ABG pO2 129 H Sodium Potassium Chloride Carbon Dioxide 21 L BUN 25 H Creatinine 0.4 L Glucose 123 H POC Glucose Calcium 8.3 L Magnesium Direct Bilirubin AST ALT Alkaline Phosphatase Total Creatine Kinase CK-MB (CK-2) CK-MB (CK-2) Rel Index Troponin T C-Reactive Protein Total Protein Albumin Triglycerides Ur Specific [place] Urine WBC (Auto) Miscellaneous Test 04/18/17 04/18/17 04/19/17 17:10 23:40 04:36 WBC RBC 3.21 L Hgb 10.2 L Hct 30.4 L MCV 95 H MCH Plt Count 131 L Lymph % (Auto) 12.1 L Eos % (Auto) 4.7 H Baso % (Auto) 2.4 H Lymph # 0.9 L Baso # 0.2 H Seg Neutrophils % 75.0 H Lymphocytes % (Manual) Monocytes % (Manual) Nucleated RBC % Seg Neutrophils # Seg Neutrophils # Man Monocytes # (Manual) PT INR Activated Clotting Time POC ABG pH POC ABG pCO2 POC ABG pO2 Sodium Potassium Chloride Carbon Dioxide BUN Creatinine Glucose POC Glucose 135 H 157 H Calcium Magnesium Direct Bilirubin AST ALT Alkaline Phosphatase Total Creatine Kinase CK-MB (CK-2) CK-MB (CK-2) Rel Index Troponin T C-Reactive Protein Total Protein Albumin Triglycerides Ur Specific [place] Urine WBC (Auto) Miscellaneous Test 04/19/17 04/19/17 04/19/17 04:36 05:12 06:50 WBC RBC Hgb Hct MCV MCH Plt Count Lymph % (Auto) Eos % (Auto) Baso % (Auto) Lymph # Baso # Seg Neutrophils % Lymphocytes % (Manual) Monocytes % (Manual) Nucleated RBC % Seg Neutrophils # Seg Neutrophils # Man Monocytes # (Manual) PT INR Activated Clotting Time POC ABG pH 7.516 H POC ABG pCO2 28.0 L POC ABG pO2 Sodium Potassium Chloride Carbon Dioxide 21 L BUN 23 H Creatinine 0.2 L Glucose 137 H POC Glucose 131 H Calcium 7.9 L Magnesium Direct Bilirubin AST ALT Alkaline Phosphatase Total Creatine Kinase CK-MB (CK-2) CK-MB (CK-2) Rel Index Troponin T C-Reactive Protein Total Protein Albumin Triglycerides Ur Specific [place] Urine WBC (Auto) Miscellaneous Test 04/19/17 04/19/17 04/20/17 12:36 17:42 00:12 WBC RBC Hgb Hct MCV MCH Plt Count Lymph % (Auto) Eos % (Auto) Baso % (Auto) Lymph # Baso # Seg Neutrophils % Lymphocytes % (Manual) Monocytes % (Manual) Nucleated RBC % Seg Neutrophils # Seg Neutrophils # Man Monocytes # (Manual) PT INR Activated Clotting Time POC ABG pH POC ABG pCO2 POC ABG pO2 Sodium Potassium Chloride Carbon Dioxide BUN Creatinine Glucose POC Glucose 128 H 140 H 132 H Calcium Magnesium Direct Bilirubin AST ALT Alkaline Phosphatase Total Creatine Kinase CK-MB (CK-2) CK-MB (CK-2) Rel Index Troponin T C-Reactive Protein Total Protein Albumin Triglycerides Ur Specific [place] Urine WBC (Auto) Miscellaneous Test 04/20/17 04/20/17 04/20/17 03:35 03:35 05:10 WBC RBC 3.34 L Hgb 10.4 L Hct 31.6 L MCV 95 H MCH Plt Count Lymph % (Auto) 12.9 L Eos % (Auto) Baso % (Auto) Lymph # Baso # Seg Neutrophils % 77.3 H Lymphocytes % (Manual) Monocytes % (Manual) Nucleated RBC % Seg Neutrophils # Seg Neutrophils # Man Monocytes # (Manual) PT INR Activated Clotting Time POC ABG pH POC ABG pCO2 POC ABG pO2 Sodium Potassium Chloride Carbon Dioxide BUN Creatinine 0.3 L Glucose 155 H POC Glucose 135 H Calcium 7.8 L Magnesium Direct Bilirubin AST ALT Alkaline Phosphatase Total Creatine Kinase CK-MB (CK-2) CK-MB (CK-2) Rel Index Troponin T C-Reactive Protein Total Protein Albumin Triglycerides Ur Specific [place] Urine WBC (Auto) Miscellaneous Test 04/20/17 04/20/17 04/21/17 12:49 18:21 00:05 WBC RBC Hgb Hct MCV MCH Plt Count Lymph % (Auto) Eos % (Auto) Baso % (Auto) Lymph # Baso # Seg Neutrophils % Lymphocytes % (Manual) Monocytes % (Manual) Nucleated RBC % Seg Neutrophils # Seg Neutrophils # Man Monocytes # (Manual) PT INR Activated Clotting Time POC ABG pH POC ABG pCO2 POC ABG pO2 Sodium Potassium Chloride Carbon Dioxide BUN Creatinine Glucose POC Glucose 155 H 165 H 141 H Calcium Magnesium Direct Bilirubin AST ALT Alkaline Phosphatase Total Creatine Kinase CK-MB (CK-2) CK-MB (CK-2) Rel Index Troponin T C-Reactive Protein Total Protein Albumin Triglycerides Ur Specific [place] Urine WBC (Auto) Miscellaneous Test 04/21/17 04/21/17 04/21/17 06:00 12:11 17:04 WBC RBC Hgb Hct MCV MCH Plt Count Lymph % (Auto) Eos % (Auto) Baso % (Auto) Lymph # Baso # Seg Neutrophils % Lymphocytes % (Manual) Monocytes % (Manual) Nucleated RBC % Seg Neutrophils # Seg Neutrophils # Man Monocytes # (Manual) PT INR Activated Clotting Time POC ABG pH POC ABG pCO2 POC ABG pO2 Sodium Potassium Chloride Carbon Dioxide BUN Creatinine Glucose POC Glucose 152 H 165 H 156 H Calcium Magnesium Direct Bilirubin AST ALT Alkaline Phosphatase Total Creatine Kinase CK-MB (CK-2) CK-MB (CK-2) Rel Index Troponin T C-Reactive Protein Total Protein Albumin Triglycerides Ur Specific [place] Urine WBC (Auto) Miscellaneous Test 04/21/17 04/21/17 04/22/17 22:00 23:59 05:49 WBC RBC Hgb Hct MCV MCH Plt Count Lymph % (Auto) Eos % (Auto) Baso % (Auto) Lymph # Baso # Seg Neutrophils % Lymphocytes % (Manual) Monocytes % (Manual) Nucleated RBC % Seg Neutrophils # Seg Neutrophils # Man Monocytes # (Manual) PT INR Activated Clotting Time POC ABG pH POC ABG pCO2 POC ABG pO2 Sodium Potassium Chloride Carbon Dioxide BUN Creatinine Glucose POC Glucose 166 H 173 H Calcium Magnesium Direct Bilirubin AST ALT Alkaline Phosphatase Total Creatine Kinase CK-MB (CK-2) CK-MB (CK-2) Rel Index Troponin T C-Reactive Protein Total Protein Albumin Triglycerides Ur Specific [place] Urine WBC (Auto) 10.0 H Miscellaneous Test 04/22/17 04/22/17 04/23/17 11:11 18:04 00:37 WBC RBC Hgb Hct MCV MCH Plt Count Lymph % (Auto) Eos % (Auto) Baso % (Auto) Lymph # Baso # Seg Neutrophils % Lymphocytes % (Manual) Monocytes % (Manual) Nucleated RBC % Seg Neutrophils # Seg Neutrophils # Man Monocytes # (Manual) PT INR Activated Clotting Time POC ABG pH POC ABG pCO2 POC ABG pO2 Sodium Potassium Chloride Carbon Dioxide BUN Creatinine Glucose POC Glucose 172 H 140 H 135 H Calcium Magnesium Direct Bilirubin AST ALT Alkaline Phosphatase Total Creatine Kinase CK-MB (CK-2) CK-MB (CK-2) Rel Index Troponin T C-Reactive Protein Total Protein Albumin Triglycerides Ur Specific [place] Urine WBC (Auto) Miscellaneous Test 04/23/17 04/23/17 04/23/17 05:33 06:20 11:10 WBC RBC 3.19 L Hgb 9.9 L Hct 30.0 L MCV MCH Plt Count Lymph % (Auto) 8.0 L Eos % (Auto) Baso % (Auto) Lymph # 0.8 L Baso # Seg Neutrophils % 84.5 H Lymphocytes % (Manual) Monocytes % (Manual) Nucleated RBC % Seg Neutrophils # 8.2 H Seg Neutrophils # Man Monocytes # (Manual) PT INR Activated Clotting Time POC ABG pH POC ABG pCO2 POC ABG pO2 Sodium Potassium Chloride Carbon Dioxide BUN Creatinine Glucose POC Glucose 134 H 134 H Calcium Magnesium Direct Bilirubin AST ALT Alkaline Phosphatase Total Creatine Kinase CK-MB (CK-2) CK-MB (CK-2) Rel Index Troponin T C-Reactive Protein Total Protein Albumin Triglycerides Ur Specific [place] Urine WBC (Auto) Miscellaneous Test 04/23/17 04/24/17 04/24/17 17:26 00:53 06:46 WBC RBC Hgb Hct MCV MCH Plt Count Lymph % (Auto) Eos % (Auto) Baso % (Auto) Lymph # Baso # Seg Neutrophils % Lymphocytes % (Manual) Monocytes % (Manual) Nucleated RBC % Seg Neutrophils # Seg Neutrophils # Man Monocytes # (Manual) PT INR Activated Clotting Time POC ABG pH POC ABG pCO2 POC ABG pO2 Sodium Potassium Chloride Carbon Dioxide BUN Creatinine Glucose POC Glucose 164 H 146 H 125 H Calcium Magnesium Direct Bilirubin AST ALT Alkaline Phosphatase Total Creatine Kinase CK-MB (CK-2) CK-MB (CK-2) Rel Index Troponin T C-Reactive Protein Total Protein Albumin Triglycerides Ur Specific [place] Urine WBC (Auto) Miscellaneous Test 04/24/17 04/24/17 04/24/17 11:55 17:50 23:36 WBC RBC Hgb Hct MCV MCH Plt Count Lymph % (Auto) Eos % (Auto) Baso % (Auto) Lymph # Baso # Seg Neutrophils % Lymphocytes % (Manual) Monocytes % (Manual) Nucleated RBC % Seg Neutrophils # Seg Neutrophils # Man Monocytes # (Manual) PT INR Activated Clotting Time POC ABG pH POC ABG pCO2 POC ABG pO2 Sodium Potassium Chloride Carbon Dioxide BUN Creatinine Glucose POC Glucose 156 H 146 H 131 H Calcium Magnesium Direct Bilirubin AST ALT Alkaline Phosphatase Total Creatine Kinase CK-MB (CK-2) CK-MB (CK-2) Rel Index Troponin T C-Reactive Protein Total Protein Albumin Triglycerides Ur Specific [place] Urine WBC (Auto) Miscellaneous Test 04/25/17 04/25/17 04/25/17 04:51 05:16 07:07 WBC RBC Hgb Hct MCV MCH Plt Count Lymph % (Auto) Eos % (Auto) Baso % (Auto) Lymph # Baso # Seg Neutrophils % Lymphocytes % (Manual) Monocytes % (Manual) Nucleated RBC % Seg Neutrophils # Seg Neutrophils # Man Monocytes # (Manual) PT INR Activated Clotting Time POC ABG pH POC ABG pCO2 POC ABG pO2 Sodium Potassium Chloride Carbon Dioxide BUN Creatinine Glucose POC Glucose 139 H Calcium Magnesium Direct Bilirubin AST 105 H ALT 204 H Alkaline Phosphatase 189 H Total Creatine Kinase CK-MB (CK-2) CK-MB (CK-2) Rel Index Troponin T C-Reactive Protein Total Protein Albumin 2.4 L Triglycerides Ur Specific [place] Urine WBC (Auto) Miscellaneous Test Flexitest 1 H 04/25/17 04/25/17 04/25/17 12:29 17:23 23:32 WBC RBC Hgb Hct MCV MCH Plt Count Lymph % (Auto) Eos % (Auto) Baso % (Auto) Lymph # Baso # Seg Neutrophils % Lymphocytes % (Manual) Monocytes % (Manual) Nucleated RBC % Seg Neutrophils # Seg Neutrophils # Man Monocytes # (Manual) PT INR Activated Clotting Time POC ABG pH POC ABG pCO2 POC ABG pO2 Sodium Potassium Chloride Carbon Dioxide BUN Creatinine Glucose POC Glucose 132 H 133 H 128 H Calcium Magnesium Direct Bilirubin AST ALT Alkaline Phosphatase Total Creatine Kinase CK-MB (CK-2) CK-MB (CK-2) Rel Index Troponin T C-Reactive Protein Total Protein Albumin Triglycerides Ur Specific [place] Urine WBC (Auto) Miscellaneous Test 04/26/17 04/26/17 04/26/17 05:24 11:28 17:09 WBC RBC Hgb Hct MCV MCH Plt Count Lymph % (Auto) Eos % (Auto) Baso % (Auto) Lymph # Baso # Seg Neutrophils % Lymphocytes % (Manual) Monocytes % (Manual) Nucleated RBC % Seg Neutrophils # Seg Neutrophils # Man Monocytes # (Manual) PT INR Activated Clotting Time POC ABG pH POC ABG pCO2 POC ABG pO2 Sodium Potassium Chloride Carbon Dioxide BUN Creatinine Glucose POC Glucose 132 H 146 H 141 H Calcium Magnesium Direct Bilirubin AST ALT Alkaline Phosphatase Total Creatine Kinase CK-MB (CK-2) CK-MB (CK-2) Rel Index Troponin T C-Reactive Protein Total Protein Albumin Triglycerides Ur Specific [place] Urine WBC (Auto) Miscellaneous Test 04/26/17 04/27/17 04/27/17 23:52 05:40 05:40 WBC RBC 3.22 L Hgb 10.0 L Hct 29.9 L MCV MCH Plt Count Lymph % (Auto) Eos % (Auto) Baso % (Auto) Lymph # Baso # Seg Neutrophils % 76.6 H Lymphocytes % (Manual) Monocytes % (Manual) Nucleated RBC % Seg Neutrophils # Seg Neutrophils # Man Monocytes # (Manual) PT INR Activated Clotting Time POC ABG pH POC ABG pCO2 POC ABG pO2 Sodium Potassium Chloride Carbon Dioxide BUN Creatinine Glucose POC Glucose 140 H Calcium Magnesium Direct Bilirubin AST 66 H ALT 137 H Alkaline Phosphatase 169 H Total Creatine Kinase CK-MB (CK-2) CK-MB (CK-2) Rel Index Troponin T C-Reactive Protein Total Protein 6.2 L Albumin 2.6 L Triglycerides Ur Specific [place] Urine WBC (Auto) Miscellaneous Test 04/27/17 04/27/17 04/27/17 05:40 06:10 11:13 WBC RBC Hgb Hct MCV MCH Plt Count Lymph % (Auto) Eos % (Auto) Baso % (Auto) Lymph # Baso # Seg Neutrophils % Lymphocytes % (Manual) Monocytes % (Manual) Nucleated RBC % Seg Neutrophils # Seg Neutrophils # Man Monocytes # (Manual) PT INR Activated Clotting Time POC ABG pH POC ABG pCO2 POC ABG pO2 Sodium Potassium Chloride Carbon Dioxide BUN Creatinine 0.2 L Glucose 139 H POC Glucose 130 H 151 H Calcium Magnesium Direct Bilirubin AST ALT Alkaline Phosphatase Total Creatine Kinase CK-MB (CK-2) CK-MB (CK-2) Rel Index Troponin T C-Reactive Protein Total Protein Albumin Triglycerides Ur Specific [place] Urine WBC (Auto) Miscellaneous Test 04/27/17 04/27/17 04/28/17 17:37 23:19 05:24 WBC RBC Hgb Hct MCV MCH Plt Count Lymph % (Auto) Eos % (Auto) Baso % (Auto) Lymph # Baso # Seg Neutrophils % Lymphocytes % (Manual) Monocytes % (Manual) Nucleated RBC % Seg Neutrophils # Seg Neutrophils # Man Monocytes # (Manual) PT INR Activated Clotting Time POC ABG pH POC ABG pCO2 POC ABG pO2 Sodium Potassium Chloride Carbon Dioxide BUN Creatinine Glucose POC Glucose 159 H 130 H 132 H Calcium Magnesium Direct Bilirubin AST ALT Alkaline Phosphatase Total Creatine Kinase CK-MB (CK-2) CK-MB (CK-2) Rel Index Troponin T C-Reactive Protein Total Protein Albumin Triglycerides Ur Specific [place] Urine WBC (Auto) Miscellaneous Test 04/28/17 04/28/17 04/28/17 11:15 17:38 23:23 WBC RBC Hgb Hct MCV MCH Plt Count Lymph % (Auto) Eos % (Auto) Baso % (Auto) Lymph # Baso # Seg Neutrophils % Lymphocytes % (Manual) Monocytes % (Manual) Nucleated RBC % Seg Neutrophils # Seg Neutrophils # Man Monocytes # (Manual) PT INR Activated Clotting Time POC ABG pH POC ABG pCO2 POC ABG pO2 Sodium Potassium Chloride Carbon Dioxide BUN Creatinine Glucose POC Glucose 162 H 133 H 138 H Calcium Magnesium Direct Bilirubin AST ALT Alkaline Phosphatase Total Creatine Kinase CK-MB (CK-2) CK-MB (CK-2) Rel Index Troponin T C-Reactive Protein Total Protein Albumin Triglycerides Ur Specific [place] Urine WBC (Auto) Miscellaneous Test 04/29/17 04/29/17 04/29/17 05:15 12:55 17:21 WBC RBC Hgb Hct MCV MCH Plt Count Lymph % (Auto) Eos % (Auto) Baso % (Auto) Lymph # Baso # Seg Neutrophils % Lymphocytes % (Manual) Monocytes % (Manual) Nucleated RBC % Seg Neutrophils # Seg Neutrophils # Man Monocytes # (Manual) PT INR Activated Clotting Time POC ABG pH POC ABG pCO2 POC ABG pO2 Sodium Potassium Chloride Carbon Dioxide BUN Creatinine Glucose POC Glucose 135 H 127 H 138 H Calcium Magnesium Direct Bilirubin AST ALT Alkaline Phosphatase Total Creatine Kinase CK-MB (CK-2) CK-MB (CK-2) Rel Index Troponin T C-Reactive Protein Total Protein Albumin Triglycerides Ur Specific [place] Urine WBC (Auto) Miscellaneous Test 04/29/17 04/30/17 23:52 04:55 WBC RBC Hgb Hct MCV MCH Plt Count Lymph % (Auto) Eos % (Auto) Baso % (Auto) Lymph # Baso # Seg Neutrophils % Lymphocytes % (Manual) Monocytes % (Manual) Nucleated RBC % Seg Neutrophils # Seg Neutrophils # Man Monocytes # (Manual) PT INR Activated Clotting Time POC ABG pH POC ABG pCO2 POC ABG pO2 Sodium Potassium Chloride Carbon Dioxide BUN Creatinine Glucose POC Glucose 142 H 146 H Calcium Magnesium Direct Bilirubin AST ALT Alkaline Phosphatase Total Creatine Kinase CK-MB (CK-2) CK-MB (CK-2) Rel Index Troponin T C-Reactive Protein Total Protein Albumin Triglycerides Ur Specific [place] Urine WBC (Auto) Miscellaneous Test
[2017-04-30] MEDS ORDERED: LASIX IV ONE (10:02)
[2017-04-30] MEDS: ASPIRIN PO SCH (10:10)
[2017-04-30] MEDS: PROTONIX FEEDTUBE SCH (10:10)
[2017-04-30] MEDS: ZESTRIL PO SCH (10:10)
[2017-04-30] MEDS: COLACE FEEDTUBE SCH ×2 (10:10→21:32)
[2017-04-30] MEDS: PLAVIX PO SCH (10:10)
[2017-04-30] MEDS: HEPARIN SUB-Q SCH (10:10)
[2017-04-30] MEDS: CORDARONE PO SCH ×2 (14:29→21:34)
[2017-04-30 15:06] LABS: BUN/Creatinine Ratio 105; Blood Urea Nitrogen 21 mg/dL (9-20); Calcium 8.8 mg/dL (8.4-10.2); Hemolysis Index 1
--- NOTE | 2017-04-30 16:18 | Progress Note ---
Assessment and Plan Assessment and plan: Graciela fib arrest status post CPR anoxic encephalopathy respiratory failure vent dependent tracheostomy and PEG placement MRSA pneumonia with status. Sepsis poor prognosis, full CODE STATUS --s/p cardiac arrest ; status post CPR -- anoxic encephalopathy'vegetative state, supportive care -- s/p trach and PEG; continue vent support, admitted with acute hypoxic hypercapnic respiratory failure --Acute anterior STEMI; status post PCI, cardiology following --MRSA pneumonia/aspiration pneumonia, contact isolation patient received full treatment with Zyvox --Hypertension; BP in the lower range. --Febrile illness; aspiration pneumonia; sepsis; on antibiotics ID following --Cardiogenic shock; off pressors, closely monitor --s/p trach and PEG, continue PEG feeds --Severe Protein calorie malnutrition: Peg feeds and nutrition suppliments --DVT prophylaxis; Lovenox --Full CODE STATUS Poor prognosis family weight Social issues and appears Medicaid application is in process History Interval history: Patient seen and examined medical records reviewed Unresponsive status post trach on vent No new events reported by the nursing staff Vital signs reviewed Hospitalist Physical - Constitutional Vitals: Temp Pulse Resp BP Pulse Ox 98.6 F 95 H 16 92/55 96 04/30/17 12:00 04/30/17 14:00 04/30/17 14:00 04/30/17 14:00 04/30/17 13:01 General appearance: Present: no acute distress, well-nourished, other ( tracheostomy on ventilatory support) - EENT Eyes: Present: PERRL, EOM intact - Neck Neck: Present: supple - Respiratory Respiratory: bilateral: diminished, negative: rales, rhonchi, wheezing - Cardiovascular Rhythm: regular Heart Sounds: Present: S1 & S2 - Extremities Extremities: no ischemia Extremity abnormal: edema - Abdominal General gastrointestinal: soft, non-tender, non-distended, normal bowel sounds, other (PEG tube in place) - Integumentary Integumentary: Present: clear, warm - Psychiatric Psychiatric: other (unresponsive) - Neurologic Neurologic: other (unresponsive) Results - Labs CBC & Chem 7: 04/27/17 05:40 04/30/17 14:25 Labs: Laboratory Last Values WBC 8.5 K/mm3 (4.5-11.0) 04/27/17 05:40 RBC 3.22 M/mm3 (3.65-5.03) L 04/27/17 05:40 Hgb 10.0 gm/dl (11.8-15.2) L 04/27/17 05:40 Hct 29.9 % (35.5-45.6) L 04/27/17 05:40 MCV 93 fl (84-94) 04/27/17 05:40 MCH 31 pg (28-32) 04/27/17 05:40 MCHC 33 % (32-34) 04/27/17 05:40 RDW 14.8 % (13.2-15.2) 04/27/17 05:40 Plt Count 260 K/mm3 (140-440) 04/27/17 05:40 Lymph % (Auto) 14.9 % (13.4-35.0) 04/27/17 05:40 Barnes % (Auto) 6.5 % (0.0-7.3) 04/27/17 05:40 Eos % (Auto) 1.7 % (0.0-4.3) 04/27/17 05:40 Baso % (Auto) 0.3 % (0.0-1.8) 04/27/17 05:40 Lymph # 1.3 K/mm3 (1.2-5.4) 04/27/17 05:40 Barnes # 0.6 K/mm3 (0.0-0.8) 04/27/17 05:40 Eos # 0.1 K/mm3 (0.0-0.4) 04/27/17 05:40 Baso # 0.0 K/mm3 (0.0-0.1) 04/27/17 05:40 Add Manual Diff Complete 03/30/17 03:50 Total Counted 100 03/30/17 03:50 Seg Neutrophils % 76.6 % (40.0-70.0) H 04/27/17 05:40 Seg Neuts % (Manual) 65.0 % (40.0-70.0) 03/30/17 03:50 Band Neutrophils % 17.0 % 03/30/17 03:50 Lymphocytes % (Manual) 7.0 % (13.4-35.0) L 03/30/17 03:50 Reactive Lymphs % (Man) 0 % 03/30/17 03:50 Monocytes % (Manual) 7.0 % (0.0-7.3) 03/30/17 03:50 Eosinophils % (Manual) 0 % (0.0-4.3) 03/30/17 03:50 Basophils % (Manual) 0 % (0.0-1.8) 03/30/17 03:50 Metamyelocytes % 4.0 % 03/30/17 03:50 Myelocytes % 0 % 03/30/17 03:50 Promyelocytes % 0 % 03/30/17 03:50 Blast Cells % 0 % 03/30/17 03:50 Nucleated RBC % Not Reportable 03/30/17 03:50 Seg Neutrophils # 6.5 K/mm3 (1.8-7.7) 04/27/17 05:40 Seg Neutrophils # Man 12.7 K/mm3 (1.8-7.7) H 03/30/17 03:50 Band Neutrophils # 3.3 K/mm3 03/30/17 03:50 Lymphocytes # (Manual) 1.4 K/mm3 (1.2-5.4) 03/30/17 03:50 Abs React Lymphs (Man) 0.0 K/mm3 03/30/17 03:50 Monocytes # (Manual) 1.4 K/mm3 (0.0-0.8) H 03/30/17 03:50 Eosinophils # (Manual) 0.0 K/mm3 (0.0-0.4) 03/30/17 03:50 Basophils # (Manual) 0.0 K/mm3 (0.0-0.1) 03/30/17 03:50 Metamyelocytes # 0.8 K/mm3 03/30/17 03:50 Myelocytes # 0.0 K/mm3 03/30/17 03:50 Promyelocytes # 0.0 K/mm3 03/30/17 03:50 Blast Cells # 0.0 K/mm3 03/30/17 03:50 WBC Morphology Not Reportable 03/30/17 03:50 Hypersegmented Neuts Not Reportable 03/30/17 03:50 Hyposegmented Neuts Not Reportable 03/30/17 03:50 Hypogranular Neuts Not Reportable 03/30/17 03:50 Smudge Cells Not Reportable 03/30/17 03:50 Toxic Granulation Not Reportable 03/30/17 03:50 Toxic Vacuolation Not Reportable 03/30/17 03:50 Dohle Bodies Not Reportable 03/30/17 03:50 Pelger-Huet Anomaly Not Reportable 03/30/17 03:50 Sherry Rods Not Reportable 03/30/17 03:50 Platelet Estimate Appears normal 03/30/17 03:50 Clumped Platelets Not Reportable 03/30/17 03:50 Plt Clumps, EDTA Not Reportable 03/30/17 03:50 Large Platelets Not Reportable 03/30/17 03:50 Giant Platelets Not Reportable 03/30/17 03:50 Platelet Satelliting Not Reportable 03/30/17 03:50 Plt Morphology Comment Not Reportable 03/30/17 03:50 RBC Morphology Not Reportable 03/30/17 03:50 Dimorphic RBCs Not Reportable 03/30/17 03:50 Polychromasia Not Reportable 03/30/17 03:50 Hypochromasia Not Reportable 03/30/17 03:50 Poikilocytosis Not Reportable 03/30/17 03:50 Anisocytosis Few 03/30/17 03:50 Microcytosis Not Reportable 03/30/17 03:50 Macrocytosis Not Reportable 03/30/17 03:50 Spherocytes Not Reportable 03/30/17 03:50 Pappenheimer Bodies Not Reportable 03/30/17 03:50 Sickle Cells Not Reportable 03/30/17 03:50 Target Cells Not Reportable 03/30/17 03:50 Tear Drop Cells Not Reportable 03/30/17 03:50 Ovalocytes Not Reportable 03/30/17 03:50 Helmet Cells Not Reportable 03/30/17 03:50 [place] Bodies Not Reportable 03/30/17 03:50 [place] Rings Not Reportable 03/30/17 03:50 [place] Cells Not Reportable 03/30/17 03:50 Bite Cells Not Reportable 03/30/17 03:50 Crenated Cell Not Reportable 03/30/17 03:50 Elliptocytes Not Reportable 03/30/17 03:50 Acanthocytes (Spur) Not Reportable 03/30/17 03:50 Rouleaux Not Reportable 03/30/17 03:50 Hemoglobin C Crystals Not Reportable 03/30/17 03:50 Schistocytes Not Reportable 03/30/17 03:50 Malaria parasites Not Reportable 03/30/17 03:50 Jermaine Bodies Not Reportable 03/30/17 03:50 Hem Pathologist Commnt No 03/30/17 03:50 PT 14.9 Sec. (12.2-14.9) 04/10/17 04:16 INR 1.11 (0.87-1.13) 04/10/17 04:16 APTT 27.8 Sec. (24.2-36.6) 04/10/17 04:16 Activated Clotting Time 92 (74-137) 03/29/17 17:47 POC ABG pH 7.516 (7.35-7.45) H 04/19/17 06:50 POC ABG pCO2 28.0 (35-45) L 04/19/17 06:50 POC ABG pO2 81 (80-105) 04/19/17 06:50 POC ABG HCO3 22.7 04/19/17 06:50 POC ABG Total CO2 24 04/19/17 06:50 POC ABG O2 Sat 97 04/19/17 06:50 POC ABG Base Excess 0 04/19/17 06:50 FiO2 30 % 04/19/17 06:50 Sodium 137 mmol/L (137-145) 04/30/17 14:25 Potassium 3.8 mmol/L (3.6-5.0) 04/30/17 14:25 Chloride 99.1 mmol/L (98-107) 04/30/17 14:25 Carbon Dioxide 26 mmol/L (22-30) 04/30/17 14:25 Anion Gap 16 mmol/L 04/30/17 14:25 BUN 21 mg/dL (9-20) H 04/30/17 14:25 Creatinine 0.2 mg/dL (0.8-1.5) L 04/30/17 14:25 Estimated GFR > 60 ml/min 04/30/17 14:25 BUN/Creatinine Ratio 105 % 04/30/17 14:25 Glucose 141 mg/dL (75-100) H 04/30/17 14:25 POC Glucose 146 (70-105) H 04/30/17 04:55 Calcium 8.8 mg/dL (8.4-10.2) 04/30/17 14:25 Phosphorus 3.50 mg/dL (2.5-4.5) 04/13/17 04:45 Magnesium 2.10 mg/dL (1.7-2.3) 04/23/17 05:33 Total Bilirubin 0.50 mg/dL (0.1-1.2) 04/27/17 05:40 Direct Bilirubin < 0.2 mg/dL (0-0.2) 04/27/17 05:40 Indirect Bilirubin 0.3 mg/dL 04/25/17 04:51 AST 66 units/L (5-40) H 04/27/17 05:40 ALT 137 units/L (7-56) H 04/27/17 05:40 Alkaline Phosphatase 169 units/L (35-129) H 04/27/17 05:40 Total Creatine Kinase 1404 units/L (55-170) H 04/12/17 21:36 CK-MB (CK-2) 8.0 ng/mL (0.0-4.0) H 04/12/17 21:36 CK-MB (CK-2) Rel Index 0.5 (0-4) 04/12/17 21:36 Troponin T 0.767 ng/mL (0.00-0.029) H* 04/12/17 21:36 C-Reactive Protein 21.80 mg/dL (0.00-1.30) H 03/30/17 16:04 Total Protein 6.2 g/dL (6.3-8.2) L 04/27/17 05:40 Albumin 2.6 g/dL (3.9-5) L 04/27/17 05:40 Albumin/Globulin Ratio 0.7 % 04/27/17 05:40 Triglycerides 151 mg/dL (2-149) H 04/01/17 04:29 Cholesterol 164 mg/dL (50-199) 03/29/17 19:52 LDL Cholesterol Direct 81 mg/dL (50-130) 03/29/17 19:52 HDL Cholesterol 44 mg/dL (40-59) 03/29/17 19:52 Cholesterol/HDL Ratio 3.72 % 03/29/17 19:52 Urine Color [place] (Yellow) 04/21/17 22:00 Urine Turbidity Clear (Clear) 04/21/17 22:00 Urine pH 5.0 (5.0-7.0) 04/21/17 22:00 Ur Specific [place] 1.029 (1.003-1.030) 04/21/17 22:00 Urine Protein 30 mg/dl mg/dL (Negative) 04/21/17 22:00 Urine Glucose (UA) Neg mg/dL (Negative) 04/21/17 22:00 Urine Ketones Neg mg/dL (Negative) 04/21/17 22:00 Urine Blood Mod (Negative) 04/21/17 22:00 Urine Nitrite Neg (Negative) 04/21/17 22:00 Urine Bilirubin Neg (Negative) 04/21/17 22:00 Urine Urobilinogen 4.0 mg/dL (<2.0) 04/21/17 22:00 Ur Leukocyte Esterase Neg (Negative) 04/21/17 22:00 Urine WBC (Auto) 10.0 /HPF (0.0-6.0) H 04/21/17 22:00 Urine RBC (Auto) 44.0 /HPF (0.0-6.0) 04/21/17 22:00 U Epithel Cells (Auto) < 1.0 /HPF (0-13.0) 04/21/17 22:00 Amorphous Crystals 1+ 03/30/17 09:45 Urine Mucus 3+ /HPF 04/21/17 22:00 Urine Opiates Screen Presumptive negative 03/30/17 09:45 Urine Methadone Screen Presumptive negative 03/30/17 09:45 Ur Barbiturates Screen Presumptive negative 03/30/17 09:45 Ur Phencyclidine Scrn Presumptive negative 03/30/17 09:45 Ur Amphetamines Screen Presumptive positive 03/30/17 09:45 U Benzodiazepines Scrn Presumptive positive 03/30/17 09:45 Urine Cocaine Screen Presumptive negative 03/30/17 09:45 U Marijuana (THC) Screen Presumptive negative 03/30/17 09:45 Drugs of Abuse Note Disclamer 03/30/17 09:45 Miscellaneous Test Flexitest 1 H 04/25/17 07:07 Blood Type O POSITIVE 03/29/17 11:35 Antibody Screen Negative 03/29/17 11:35
[2017-05-01] MEDS: VASELINE LIP THERAPY TP PRN (00:35)
[2017-05-01] MEDS: LOPRESSOR PO SCH ×4 (00:46→17:31)
[2017-05-01] MEDS: NOVOLOG SUB-Q SCH ×3 (05:39→17:31)
[2017-05-01 06:02] LABS: Basophils % (Auto) 0.4 % (0.0-1.8); Eosinophils # (Auto) 0.2 K/mm3 (0.0-0.4); Eosinophils % (Auto) 2.5 % (0.0-4.3); Hematocrit 31.9 % (35.5-45.6); Hemoglobin 10.3 gm/dl (11.8-15.2); Lymphocytes # (Auto) 1.4 K/mm3 (1.2-5.4); Lymphocytes % (Auto) 17.7 % (13.4-35.0); Mean Corpuscular HGB Conc 32 % (32-34); Mean Corpuscular Hemoglobin 30 pg (28-32); Mean Corpuscular Volume 92 fl (84-94); Monocytes # (Auto) 0.6 K/mm3 (0.0-0.8); Monocytes % (Auto) 8.1 % (0.0-7.3); Platelet Count 280 K/mm3 (140-440); Red Blood Count 3.49 M/mm3 (3.65-5.03); Red Cell Distribution Width 15.1 % (13.2-15.2)
[2017-05-01 06:26] LABS: Alanine Aminotransferase 125 units/L (7-56); Albumin 2.6 g/dL (3.9-5); BUN/Creatinine Ratio 80; Blood Urea Nitrogen 16 mg/dL (9-20); Calcium 8.9 mg/dL (8.4-10.2); Hemolysis Index 4
--- NOTE | 2017-05-01 09:47 | Progress Note ---
Assessment and Plan Out of hospital Vfib arrest Hypoxic encephalopathy. No major changes clinically. Off sedation STEMI Prior x-rays with residual infiltrate, possibly residual vascular congestion s/p LHC with stent placement Sputum culture positive for MRSA. Prior infiltrate RLL Recommendations Back on assist control mode Section as needed Monitor, watch for fever DVT prophylaxis Prognosis at this point appears to be poor. Also noted to have per nursing report, some VT runs previously, currently under observation. Recommend updating advanced direct this with family, in case they wish to change CODE STATUS. Critical care time with a 31 minutes of [id number] evaluation and coordination of care Subjective Date of service: 05/01/17 Principal diagnosis: Acute TX Interval history: Intubated on ventilatory support. Tachypneic on pressure support/CPAP mode Objective Vital Signs - 12hr 04/30/17 04/30/17 04/30/17 22:00 23:00 23:31 Temperature Pulse Rate 95 H 92 H 95 H Pulse Rate [ From Monitor] Respiratory 24 24 Rate Blood Pressure 99/62 99/62 95/53 O2 Sat by Pulse 99 Oximetry O2 Sat by Pulse Oximetry [ Assessment] 05/01/17 05/01/17 05/01/17 00:00 00:17 01:00 Temperature Pulse Rate 93 H 91 H 91 H Pulse Rate [ From Monitor] Respiratory 25 H 24 20 Rate Blood Pressure 99/57 108/68 99/57 O2 Sat by Pulse 99 100 Oximetry O2 Sat by Pulse Oximetry [ Assessment] 05/01/17 05/01/17 05/01/17 02:00 03:00 04:00 Temperature Pulse Rate 92 H 94 H 95 H Pulse Rate [ From Monitor] Respiratory 22 22 31 H Rate Blood Pressure 95/64 95/64 98/68 O2 Sat by Pulse 98 Oximetry O2 Sat by Pulse Oximetry [ Assessment] 05/01/17 05/01/17 05/01/17 04:18 05:00 06:00 Temperature Pulse Rate 93 H 89 93 H Pulse Rate [ From Monitor] Respiratory 22 24 26 H Rate Blood Pressure 105/72 98/68 98/63 O2 Sat by Pulse 96 97 Oximetry O2 Sat by Pulse Oximetry [ Assessment] 05/01/17 05/01/17 05/01/17 07:00 08:00 08:16 Temperature Pulse Rate 101 H 96 H 99 H Pulse Rate [ 100 H From Monitor] Respiratory 28 H 26 H 28 H Rate Blood Pressure 98/63 109/74 109/74 O2 Sat by Pulse 98 99 96 Oximetry O2 Sat by Pulse Oximetry [ Assessment] 05/01/17 05/01/17 05/01/17 08:19 08:56 09:00 Temperature 99.7 F H Pulse Rate 99 H Pulse Rate [ From Monitor] Respiratory 27 H Rate Blood Pressure 109/74 O2 Sat by Pulse 93 Oximetry O2 Sat by Pulse 98 Oximetry [ Assessment] Constitutional: comatose, other (tachypneic) Eyes: non-icteric ENT: oropharynx moist Neck: supple, no JVD, other (trach) Effort: normal Ascultation: Bilateral: clear, diminished breath sounds ( ) Percussion: Bilateral: not dull Cardiovascular: regular rate and rhythm Gastrointestinal: normoactive bowel sounds, soft, non-tender, non-distended Integumentary: normal Extremities: no cyanosis, no edema, pink and warm Neurologic: other (comatose, flacid) Psychiatric: other (unable to assess) CBC and BMP: 05/01/17 05:30 05/01/17 05:30 ABG, PT/INR, D-dimer: ABG POC ABG pH 7.551 (7.35-7.45) H 04/30/17 18:20 POC ABG pCO2 32.7 (35-45) L 04/30/17 18:20 POC ABG pO2 101 (80-105) 04/30/17 18:20 POC ABG HCO3 28.7 04/30/17 18:20 POC ABG Total CO2 30 04/30/17 18:20 POC ABG O2 Sat 99 04/30/17 18:20 PT/INR, D-dimer PT 14.9 Sec. (12.2-14.9) 04/10/17 04:16 INR 1.11 (0.87-1.13) 04/10/17 04:16 Abnormal lab findings: Abnormal Labs 03/29/17 03/29/17 03/29/17 11:35 11:35 11:40 WBC RBC Hgb Hct MCV 98 H MCH 33 H Plt Count Lymph % (Auto) Eddy % (Auto) Eos % (Auto) Baso % (Auto) Lymph # Baso # Seg Neutrophils % Lymphocytes % (Manual) Monocytes % (Manual) 9.0 H Nucleated RBC % 1.0 H Seg Neutrophils # Seg Neutrophils # Man Monocytes # (Manual) 0.9 H PT 15.8 H INR 1.20 H Activated Clotting Time POC ABG pH POC ABG pCO2 POC ABG pO2 Sodium Potassium 2.7 L* Chloride 95.3 L Carbon Dioxide 17 L BUN Creatinine Glucose 435 H POC Glucose Calcium Magnesium Direct Bilirubin AST ALT Alkaline Phosphatase Total Creatine Kinase CK-MB (CK-2) CK-MB (CK-2) Rel Index Troponin T C-Reactive Protein Total Protein 6.1 L Albumin 3.5 L Triglycerides Ur Specific [place] Urine WBC (Auto) Miscellaneous Test 03/29/17 03/29/17 03/29/17 12:34 13:10 13:25 WBC RBC Hgb Hct MCV MCH Plt Count Lymph % (Auto) Edd[place] % (Auto) Eos % (Auto) Baso % (Auto) Lymph # Baso # Seg Neutrophils % Lymphocytes % (Manual) Monocytes % (Manual) Nucleated RBC % Seg Neutrophils # Seg Neutrophils # Man Monocytes # (Manual) PT INR Activated Clotting Time 142 H 169 H 175 H POC ABG pH POC ABG pCO2 POC ABG pO2 Sodium Potassium Chloride Carbon Dioxide BUN Creatinine Glucose POC Glucose Calcium Magnesium Direct Bilirubin AST ALT Alkaline Phosphatase Total Creatine Kinase CK-MB (CK-2) CK-MB (CK-2) Rel Index Troponin T C-Reactive Protein Total Protein Albumin Triglycerides Ur Specific [place] Urine WBC (Auto) Miscellaneous Test 03/29/17 03/29/17 03/29/17 14:50 15:18 19:52 WBC RBC Hgb Hct MCV MCH Plt Count Lymph % (Auto) Eddy % (Auto) Eos % (Auto) Baso % (Auto) Lymph # Baso # Seg Neutrophils % Lymphocytes % (Manual) Monocytes % (Manual) Nucleated RBC % Seg Neutrophils # Seg Neutrophils # Man Monocytes # (Manual) PT INR Activated Clotting Time 175 H POC ABG pH 7.293 L POC ABG pCO2 POC ABG pO2 602 H Sodium Potassium Chloride Carbon Dioxide BUN Creatinine Glucose POC Glucose Calcium Magnesium Direct Bilirubin AST ALT Alkaline Phosphatase Total Creatine Kinase 7263 H CK-MB (CK-2) > 300.0 H CK-MB (CK-2) Rel Index 4.1 H Troponin T 8.080 H* D C-Reactive Protein Total Protein Albumin Triglycerides 195 H Ur Specific [place] Urine WBC (Auto) Miscellaneous Test 03/30/17 03/30/1718 03:50 03:50 06:19 WBC 19.5 H RBC Hgb Hct MCV MCH Plt Count Lymph % (Auto) Eddy % (Auto) Eos % (Auto) Baso % (Auto) Lymph # Baso # Seg Neutrophils % Lymphocytes % (Manual) 7.0 L Monocytes % (Manual) Nucleated RBC % Seg Neutrophils # Seg Neutrophils # Man 12.7 H Monocytes # (Manual) 1.4 H PT INR Activated Clotting Time POC ABG pH POC ABG pCO2 28.2 L POC ABG pO2 108 H Sodium Potassium Chloride 108.9 H Carbon Dioxide 15 L BUN 25 H Creatinine Glucose 158 H POC Glucose Calcium 8.1 L Magnesium Direct Bilirubin AST ALT Alkaline Phosphatase Total Creatine Kinase 7963 H CK-MB (CK-2) > 300.0 H CK-MB (CK-2) Rel Index Troponin T 6.850 H* C-Reactive Protein Total Protein Albumin Triglycerides Ur Specific [place] Urine WBC (Auto) Miscellaneous Test 03/30/17 03/30/17 03/31/17 09:45 16:04 02:19 WBC RBC Hgb Hct MCV MCH Plt Count Lymph % (Auto) [place] % (Auto) Eos % (Auto) Baso % (Auto) Lymph # Baso # Seg Neutrophils % Lymphocytes % (Manual) Monocytes % (Manual) Nucleated RBC % Seg Neutrophils # Seg Neutrophils # Man Monocytes # (Manual) PT INR Activated Clotting Time POC ABG pH POC ABG pCO2 POC ABG pO2 Sodium Potassium Chloride Carbon Dioxide BUN Creatinine Glucose POC Glucose 137 H Calcium Magnesium Direct Bilirubin AST ALT Alkaline Phosphatase Total Creatine Kinase CK-MB (CK-2) CK-MB (CK-2) Rel Index Troponin T C-Reactive Protein 21.80 H Total Protein Albumin Triglycerides Ur Specific [place] 1.031 H Urine WBC (Auto) Miscellaneous Test 03/31/17 03/31/17 03/31/17 03:57 06:54 09:22 WBC RBC Hgb Hct MCV MCH Plt Count Lymph % (Auto) [place] % (Auto) Eos % (Auto) Baso % (Auto) Lymph # Baso # Seg Neutrophils % Lymphocytes % (Manual) Monocytes % (Manual) Nucleated RBC % Seg Neutrophils # Seg Neutrophils # Man Monocytes # (Manual) PT INR Activated Clotting Time POC ABG pH 7.475 H POC ABG pCO2 25.4 L POC ABG pO2 62 L Sodium Potassium Chloride Carbon Dioxide 19 L BUN 22 H Creatinine 0.6 L Glucose 148 H POC Glucose 143 H Calcium 8.3 L Magnesium Direct Bilirubin AST ALT Alkaline Phosphatase Total Creatine Kinase CK-MB (CK-2) CK-MB (CK-2) Rel Index Troponin T C-Reactive Protein Total Protein Albumin Triglycerides Ur Specific [place] Urine WBC (Auto) Miscellaneous Test 03/31/17 03/31/17 03/31/17 11:40 17:47 23:38 WBC RBC Hgb Hct MCV MCH Plt Count Lymph % (Auto) [place] % (Auto) Eos % (Auto) Baso % (Auto) Lymph # Baso # Seg Neutrophils % Lymphocytes % (Manual) Monocytes % (Manual) Nucleated RBC % Seg Neutrophils # Seg Neutrophils # Man Monocytes # (Manual) PT INR Activated Clotting Time POC ABG pH POC ABG pCO2 POC ABG pO2 Sodium Potassium Chloride Carbon Dioxide BUN Creatinine Glucose POC Glucose 127 H 137 H 148 H Calcium Magnesium Direct Bilirubin AST ALT Alkaline Phosphatase Total Creatine Kinase CK-MB (CK-2) CK-MB (CK-2) Rel Index Troponin T C-Reactive Protein Total Protein Albumin Triglycerides Ur Specific [place] Urine WBC (Auto) Miscellaneous Test 04/01/17 04/01/17 04/01/17 04:29 05:01 11:54 WBC RBC Hgb Hct MCV MCH Plt Count Lymph % (Auto) [place] % (Auto) Eos % (Auto) Baso % (Auto) Lymph # Baso # Seg Neutrophils % Lymphocytes % (Manual) Monocytes % (Manual) Nucleated RBC % Seg Neutrophils # Seg Neutrophils # Man Monocytes # (Manual) PT INR Activated Clotting Time POC ABG pH 7.513 H POC ABG pCO2 22.1 L POC ABG pO2 64 L Sodium Potassium Chloride Carbon Dioxide BUN Creatinine Glucose POC Glucose 121 H Calcium Magnesium Direct Bilirubin AST ALT Alkaline Phosphatase Total Creatine Kinase CK-MB (CK-2) CK-MB (CK-2) Rel Index Troponin T C-Reactive Protein Total Protein Albumin Triglycerides 151 H Ur Specific [place] Urine WBC (Auto) Miscellaneous Test 04/01/17 04/02/17 04/02/17 18:17 00:11 04:52 WBC RBC Hgb Hct MCV MCH Plt Count Lymph % (Auto) [place] % (Auto) Eos % (Auto) Baso % (Auto) Lymph # Baso # Seg Neutrophils % Lymphocytes % (Manual) Monocytes % (Manual) Nucleated RBC % Seg Neutrophils # Seg Neutrophils # Man Monocytes # (Manual) PT INR Activated Clotting Time POC ABG pH 7.524 H POC ABG pCO2 25.5 L POC ABG pO2 66 L Sodium Potassium Chloride Carbon Dioxide BUN Creatinine Glucose POC Glucose 117 H 122 H Calcium Magnesium Direct Bilirubin AST ALT Alkaline Phosphatase Total Creatine Kinase CK-MB (CK-2) CK-MB (CK-2) Rel Index Troponin T C-Reactive Protein Total Protein Albumin Triglycerides Ur Specific [place] Urine WBC (Auto) Miscellaneous Test 04/02/17 04/02/17 04/02/17 05:18 10:41 12:19 WBC RBC Hgb Hct MCV MCH Plt Count Lymph % (Auto) [place] % (Auto) Eos % (Auto) Baso % (Auto) Lymph # Baso # Seg Neutrophils % Lymphocytes % (Manual) Monocytes % (Manual) Nucleated RBC % Seg Neutrophils # Seg Neutrophils # Man Monocytes # (Manual) PT INR Activated Clotting Time POC ABG pH 7.534 H POC ABG pCO2 27.4 L POC ABG pO2 Sodium Potassium Chloride Carbon Dioxide BUN Creatinine Glucose POC Glucose 132 H 129 H Calcium Magnesium Direct Bilirubin AST ALT Alkaline Phosphatase Total Creatine Kinase CK-MB (CK-2) CK-MB (CK-2) Rel Index Troponin T C-Reactive Protein Total Protein Albumin Triglycerides Ur Specific [place] Urine WBC (Auto) Miscellaneous Test 04/02/17 04/03/17 04/03/17 18:05 00:08 05:09 WBC RBC Hgb Hct MCV MCH Plt Count Lymph % (Auto) [place] % (Auto) Eos % (Auto) Baso % (Auto) Lymph # Baso # Seg Neutrophils % Lymphocytes % (Manual) Monocytes % (Manual) Nucleated RBC % Seg Neutrophils # Seg Neutrophils # Man Monocytes # (Manual) PT INR Activated Clotting Time POC ABG pH 7.455 H POC ABG pCO2 33.2 L POC ABG pO2 120 H Sodium Potassium Chloride Carbon Dioxide BUN Creatinine Glucose POC Glucose 136 H 128 H Calcium Magnesium Direct Bilirubin AST ALT Alkaline Phosphatase Total Creatine Kinase CK-MB (CK-2) CK-MB (CK-2) Rel Index Troponin T C-Reactive Protein Total Protein Albumin Triglycerides Ur Specific [place] Urine WBC (Auto) Miscellaneous Test 04/03/17 04/03/17 04/03/17 06:32 11:54 12:16 WBC 11.9 H RBC Hgb Hct MCV MCH Plt Count 125 L Lymph % (Auto) 4.8 L [place] % (Auto) Eos % (Auto) Baso % (Auto) Lymph # 0.6 L Baso # Seg Neutrophils % 86.7 H Lymphocytes % (Manual) Monocytes % (Manual) Nucleated RBC % Seg Neutrophils # 10.3 H Seg Neutrophils # Man Monocytes # (Manual) PT INR Activated Clotting Time POC ABG pH POC ABG pCO2 POC ABG pO2 Sodium Potassium Chloride Carbon Dioxide BUN Creatinine Glucose POC Glucose 138 H 143 H Calcium Magnesium Direct Bilirubin AST ALT Alkaline Phosphatase Total Creatine Kinase CK-MB (CK-2) CK-MB (CK-2) Rel Index Troponin T C-Reactive Protein Total Protein Albumin Triglycerides Ur Specific [place] Urine WBC (Auto) Miscellaneous Test 04/03/17 04/03/17 04/04/17 17:33 23:59 04:34 WBC RBC Hgb Hct MCV MCH Plt Count Lymph % (Auto) [place] % (Auto) Eos % (Auto) Baso % (Auto) Lymph # Baso # Seg Neutrophils % Lymphocytes % (Manual) Monocytes % (Manual) Nucleated RBC % Seg Neutrophils # Seg Neutrophils # Man Monocytes # (Manual) PT INR Activated Clotting Time POC ABG pH 7.457 H POC ABG pCO2 29.8 L POC ABG pO2 76 L Sodium Potassium Chloride Carbon Dioxide BUN Creatinine Glucose POC Glucose 130 H 155 H Calcium Magnesium Direct Bilirubin AST ALT Alkaline Phosphatase Total Creatine Kinase CK-MB (CK-2) CK-MB (CK-2) Rel Index Troponin T C-Reactive Protein Total Protein Albumin Triglycerides Ur Specific [place] Urine WBC (Auto) Miscellaneous Test 04/04/17 04/04/17 04/04/17 05:27 12:22 18:18 WBC RBC Hgb Hct MCV MCH Plt Count Lymph % (Auto) [place] % (Auto) Eos % (Auto) Baso % (Auto) Lymph # Baso # Seg Neutrophils % Lymphocytes % (Manual) Monocytes % (Manual) Nucleated RBC % Seg Neutrophils # Seg Neutrophils # Man Monocytes # (Manual) PT INR Activated Clotting Time POC ABG pH POC ABG pCO2 POC ABG pO2 Sodium Potassium Chloride Carbon Dioxide BUN Creatinine Glucose POC Glucose 164 H 146 H 130 H Calcium Magnesium Direct Bilirubin AST ALT Alkaline Phosphatase Total Creatine Kinase CK-MB (CK-2) CK-MB (CK-2) Rel Index Troponin T C-Reactive Protein Total Protein Albumin Triglycerides Ur Specific [place] Urine WBC (Auto) Miscellaneous Test 04/05/17 04/05/17 04/05/17 04:43 05:28 11:36 WBC RBC Hgb Hct MCV MCH Plt Count Lymph % (Auto) [place] % (Auto) Eos % (Auto) Baso % (Auto) Lymph # Baso # Seg Neutrophils % Lymphocytes % (Manual) Monocytes % (Manual) Nucleated RBC % Seg Neutrophils # Seg Neutrophils # Man Monocytes # (Manual) PT INR Activated Clotting Time POC ABG pH 7.479 H POC ABG pCO2 33.5 L POC ABG pO2 76 L Sodium Potassium Chloride Carbon Dioxide BUN Creatinine Glucose POC Glucose 145 H 136 H Calcium Magnesium Direct Bilirubin AST ALT Alkaline Phosphatase Total Creatine Kinase CK-MB (CK-2) CK-MB (CK-2) Rel Index Troponin T C-Reactive Protein Total Protein Albumin Triglycerides Ur Specific [place] Urine WBC (Auto) Miscellaneous Test 04/05/17 04/06/17 04/06/17 17:58 00:16 05:26 WBC RBC Hgb Hct MCV MCH Plt Count Lymph % (Auto) [place] % (Auto) Eos % (Auto) Baso % (Auto) Lymph # Baso # Seg Neutrophils % Lymphocytes % (Manual) Monocytes % (Manual) Nucleated RBC % Seg Neutrophils # Seg Neutrophils # Man Monocytes # (Manual) PT INR Activated Clotting Time POC ABG pH POC ABG pCO2 POC ABG pO2 Sodium Potassium Chloride Carbon Dioxide BUN Creatinine Glucose POC Glucose 130 H 159 H 146 H Calcium Magnesium Direct Bilirubin AST ALT Alkaline Phosphatase Total Creatine Kinase CK-MB (CK-2) CK-MB (CK-2) Rel Index Troponin T C-Reactive Protein Total Protein Albumin Triglycerides Ur Specific [place] Urine WBC (Auto) Miscellaneous Test 04/06/17 04/06/17 04/07/17 13:11 16:54 11:45 WBC RBC Hgb Hct MCV MCH Plt Count Lymph % (Auto) [place] % (Auto) Eos % (Auto) Baso % (Auto) Lymph # Baso # Seg Neutrophils % Lymphocytes % (Manual) Monocytes % (Manual) Nucleated RBC % Seg Neutrophils # Seg Neutrophils # Man Monocytes # (Manual) PT INR Activated Clotting Time POC ABG pH 7.517 H POC ABG pCO2 32.1 L POC ABG pO2 Sodium Potassium Chloride Carbon Dioxide BUN Creatinine Glucose POC Glucose 132 H 123 H Calcium Magnesium Direct Bilirubin AST ALT Alkaline Phosphatase Total Creatine Kinase CK-MB (CK-2) CK-MB (CK-2) Rel Index Troponin T C-Reactive Protein Total Protein Albumin Triglycerides Ur Specific [place] Urine WBC (Auto) Miscellaneous Test 04/07/17 04/07/17 04/07/17 12:51 17:40 23:55 WBC RBC Hgb Hct MCV MCH Plt Count Lymph % (Auto) [place] % (Auto) Eos % (Auto) Baso % (Auto) Lymph # Baso # Seg Neutrophils % Lymphocytes % (Manual) Monocytes % (Manual) Nucleated RBC % Seg Neutrophils # Seg Neutrophils # Man Monocytes # (Manual) PT INR Activated Clotting Time POC ABG pH POC ABG pCO2 POC ABG pO2 Sodium Potassium Chloride Carbon Dioxide BUN Creatinine Glucose POC Glucose 138 H 154 H 143 H Calcium Magnesium Direct Bilirubin AST ALT Alkaline Phosphatase Total Creatine Kinase CK-MB (CK-2) CK-MB (CK-2) Rel Index Troponin T C-Reactive Protein Total Protein Albumin Triglycerides Ur Specific [place] Urine WBC (Auto) Miscellaneous Test 04/08/17 04/08/17 04/08/17 05:27 11:14 17:44 WBC RBC Hgb Hct MCV MCH Plt Count Lymph % (Auto) [place] % (Auto) Eos % (Auto) Baso % (Auto) Lymph # Baso # Seg Neutrophils % Lymphocytes % (Manual) Monocytes % (Manual) Nucleated RBC % Seg Neutrophils # Seg Neutrophils # Man Monocytes # (Manual) PT INR Activated Clotting Time POC ABG pH POC ABG pCO2 POC ABG pO2 Sodium Potassium Chloride Carbon Dioxide BUN Creatinine Glucose POC Glucose 142 H 153 H 129 H Calcium Magnesium Direct Bilirubin AST ALT Alkaline Phosphatase Total Creatine Kinase CK-MB (CK-2) CK-MB (CK-2) Rel Index Troponin T C-Reactive Protein Total Protein Albumin Triglycerides Ur Specific [place] Urine WBC (Auto) Miscellaneous Test 04/09/17 04/09/17 04/09/17 08:20 11:21 17:37 WBC RBC Hgb Hct MCV MCH Plt Count Lymph % (Auto) [place] % (Auto) Eos % (Auto) Baso % (Auto) Lymph # Baso # Seg Neutrophils % Lymphocytes % (Manual) Monocytes % (Manual) Nucleated RBC % Seg Neutrophils # Seg Neutrophils # Man Monocytes # (Manual) PT INR Activated Clotting Time POC ABG pH POC ABG pCO2 POC ABG pO2 Sodium 147 H Potassium Chloride 108.8 H Carbon Dioxide BUN 39 H Creatinine 0.5 L Glucose 138 H POC Glucose 152 H 109 H Calcium Magnesium Direct Bilirubin AST ALT Alkaline Phosphatase Total Creatine Kinase CK-MB (CK-2) CK-MB (CK-2) Rel Index Troponin T C-Reactive Protein Total Protein Albumin Triglycerides Ur Specific [place] Urine WBC (Auto) Miscellaneous Test 04/10/17 04/10/17 04/10/17 00:13 04:16 04:16 WBC RBC Hgb 11.5 L Hct MCV 96 H MCH Plt Count 103 L Lymph % (Auto) 11.1 L [place] % (Auto) Eos % (Auto) Baso % (Auto) Lymph # Baso # Seg Neutrophils % 81.5 H Lymphocytes % (Manual) Monocytes % (Manual) Nucleated RBC % Seg Neutrophils # 8.8 H Seg Neutrophils # Man Monocytes # (Manual) PT INR Activated Clotting Time POC ABG pH POC ABG pCO2 POC ABG pO2 Sodium 148 H Potassium Chloride 109.0 H Carbon Dioxide BUN 36 H Creatinine 0.5 L Glucose 131 H POC Glucose 127 H Calcium 8.1 L Magnesium 2.40 H Direct Bilirubin AST 206 H ALT 228 H Alkaline Phosphatase 178 H Total Creatine Kinase CK-MB (CK-2) CK-MB (CK-2) Rel Index Troponin T C-Reactive Protein Total Protein Albumin 2.8 L Triglycerides Ur Specific [place] Urine WBC (Auto) Miscellaneous Test 04/10/17 04/10/17 04/10/17 06:01 11:57 18:27 WBC RBC Hgb Hct MCV MCH Plt Count Lymph % (Auto) [place] % (Auto) Eos % (Auto) Baso % (Auto) Lymph # Baso # Seg Neutrophils % Lymphocytes % (Manual) Monocytes % (Manual) Nucleated RBC % Seg Neutrophils # Seg Neutrophils # Man Monocytes # (Manual) PT INR Activated Clotting Time POC ABG pH POC ABG pCO2 POC ABG pO2 Sodium Potassium Chloride Carbon Dioxide BUN Creatinine Glucose POC Glucose 108 H 154 H 130 H Calcium Magnesium Direct Bilirubin AST ALT Alkaline Phosphatase Total Creatine Kinase CK-MB (CK-2) CK-MB (CK-2) Rel Index Troponin T C-Reactive Protein Total Protein Albumin Triglycerides Ur Specific [place] Urine WBC (Auto) Miscellaneous Test 04/11/17 04/11/17 04/12/17 12:25 17:10 00:22 WBC RBC Hgb Hct MCV MCH Plt Count Lymph % (Auto) [place] % (Auto) Eos % (Auto) Baso % (Auto) Lymph # Baso # Seg Neutrophils % Lymphocytes % (Manual) Monocytes % (Manual) Nucleated RBC % Seg Neutrophils # Seg Neutrophils # Man Monocytes # (Manual) PT INR Activated Clotting Time POC ABG pH POC ABG pCO2 POC ABG pO2 Sodium Potassium Chloride Carbon Dioxide BUN Creatinine Glucose POC Glucose 107 H 129 H 128 H Calcium Magnesium Direct Bilirubin AST ALT Alkaline Phosphatase Total Creatine Kinase CK-MB (CK-2) CK-MB (CK-2) Rel Index Troponin T C-Reactive Protein Total Protein Albumin Triglycerides Ur Specific [place] Urine WBC (Auto) Miscellaneous Test 04/12/17 04/12/17 04/12/17 05:00 11:57 17:47 WBC RBC Hgb Hct MCV MCH Plt Count Lymph % (Auto) [place] % (Auto) Eos % (Auto) Baso % (Auto) Lymph # Baso # Seg Neutrophils % Lymphocytes % (Manual) Monocytes % (Manual) Nucleated RBC % Seg Neutrophils # Seg Neutrophils # Man Monocytes # (Manual) PT INR Activated Clotting Time POC ABG pH POC ABG pCO2 POC ABG pO2 Sodium Potassium Chloride Carbon Dioxide BUN Creatinine Glucose POC Glucose 140 H 142 H Calcium Magnesium Direct Bilirubin AST 158 H ALT 184 H Alkaline Phosphatase 170 H Total Creatine Kinase CK-MB (CK-2) CK-MB (CK-2) Rel Index Troponin T C-Reactive Protein Total Protein Albumin 2.8 L Triglycerides Ur Specific [place] Urine WBC (Auto) Miscellaneous Test 04/12/17 04/12/17 04/13/17 21:36 21:36 01:37 WBC RBC Hgb Hct MCV MCH Plt Count Lymph % (Auto) [place] % (Auto) Eos % (Auto) Baso % (Auto) Lymph # Baso # Seg Neutrophils % Lymphocytes % (Manual) Monocytes % (Manual) Nucleated RBC % Seg Neutrophils # Seg Neutrophils # Man Monocytes # (Manual) PT INR Activated Clotting Time POC ABG pH POC ABG pCO2 POC ABG pO2 Sodium Potassium Chloride Carbon Dioxide BUN Creatinine Glucose POC Glucose 126 H Calcium Magnesium Direct Bilirubin AST ALT Alkaline Phosphatase Total Creatine Kinase 1404 H CK-MB (CK-2) 8.0 H CK-MB (CK-2) Rel Index Troponin T 0.767 H* C-Reactive Protein Total Protein Albumin Triglycerides Ur Specific [place] Urine WBC (Auto) Miscellaneous Test 04/13/17 04/13/17 04/13/17 04:45 04:52 12:17 WBC RBC Hgb Hct MCV MCH Plt Count Lymph % (Auto) [place] % (Auto) Eos % (Auto) Baso % (Auto) Lymph # Baso # Seg Neutrophils % Lymphocytes % (Manual) Monocytes % (Manual) Nucleated RBC % Seg Neutrophils # Seg Neutrophils # Man Monocytes # (Manual) PT INR Activated Clotting Time POC ABG pH POC ABG pCO2 POC ABG pO2 Sodium 148 H Potassium Chloride 112.8 H Carbon Dioxide BUN 33 H Creatinine 0.4 L Glucose 121 H POC Glucose 126 H 149 H Calcium Magnesium Direct Bilirubin AST 160 H ALT 189 H Alkaline Phosphatase 166 H Total Creatine Kinase CK-MB (CK-2) CK-MB (CK-2) Rel Index Troponin T C-Reactive Protein Total Protein Albumin 2.6 L Triglycerides Ur Specific [place] Urine WBC (Auto) Miscellaneous Test 04/13/17 04/14/17 04/14/17 17:45 00:20 00:45 WBC RBC Hgb Hct MCV MCH Plt Count Lymph % (Auto) [place] % (Auto) Eos % (Auto) Baso % (Auto) Lymph # Baso # Seg Neutrophils % Lymphocytes % (Manual) Monocytes % (Manual) Nucleated RBC % Seg Neutrophils # Seg Neutrophils # Man Monocytes # (Manual) PT INR Activated Clotting Time POC ABG pH POC ABG pCO2 POC ABG pO2 Sodium Potassium Chloride Carbon Dioxide BUN Creatinine Glucose POC Glucose 130 H 144 H 144 H Calcium Magnesium Direct Bilirubin AST ALT Alkaline Phosphatase Total Creatine Kinase CK-MB (CK-2) CK-MB (CK-2) Rel Index Troponin T C-Reactive Protein Total Protein Albumin Triglycerides Ur Specific [place] Urine WBC (Auto) Miscellaneous Test 04/14/17 04/14/17 04/14/17 05:40 11:06 11:31 WBC RBC Hgb Hct MCV MCH Plt Count Lymph % (Auto) [place] % (Auto) Eos % (Auto) Baso % (Auto) Lymph # Baso # Seg Neutrophils % Lymphocytes % (Manual) Monocytes % (Manual) Nucleated RBC % Seg Neutrophils # Seg Neutrophils # Man Monocytes # (Manual) PT INR Activated Clotting Time POC ABG pH POC ABG pCO2 POC ABG pO2 Sodium Potassium Chloride Carbon Dioxide BUN Creatinine Glucose POC Glucose 139 H 123 H Calcium Magnesium Direct Bilirubin AST ALT Alkaline Phosphatase Total Creatine Kinase CK-MB (CK-2) CK-MB (CK-2) Rel Index Troponin T C-Reactive Protein Total Protein Albumin Triglycerides Ur Specific [place] 1.033 H Urine WBC (Auto) > 182.0 H Miscellaneous Test 04/14/17 04/14/17 04/15/17 18:00 23:52 05:15 WBC 12.5 H RBC 3.38 L Hgb 10.6 L Hct 32.7 L MCV 97 H MCH Plt Count 107 L Lymph % (Auto) 8.7 L [place] % (Auto) Eos % (Auto) Baso % (Auto) Lymph # 1.1 L Baso # Seg Neutrophils % 86.1 H Lymphocytes % (Manual) Monocytes % (Manual) Nucleated RBC % Seg Neutrophils # 10.7 H Seg Neutrophils # Man Monocytes # (Manual) PT INR Activated Clotting Time POC ABG pH POC ABG pCO2 POC ABG pO2 Sodium Potassium Chloride Carbon Dioxide BUN Creatinine Glucose POC Glucose 133 H 133 H Calcium Magnesium Direct Bilirubin AST ALT Alkaline Phosphatase Total Creatine Kinase CK-MB (CK-2) CK-MB (CK-2) Rel Index Troponin T C-Reactive Protein Total Protein Albumin Triglycerides Ur Specific [place] Urine WBC (Auto) Miscellaneous Test 04/15/17 04/15/17 04/15/17 05:15 05:25 11:50 WBC RBC Hgb Hct MCV MCH Plt Count Lymph % (Auto) Edd[place] % (Auto) Eos % (Auto) Baso % (Auto) Lymph # Baso # Seg Neutrophils % Lymphocytes % (Manual) Monocytes % (Manual) Nucleated RBC % Seg Neutrophils # Seg Neutrophils # Man Monocytes # (Manual) PT INR Activated Clotting Time POC ABG pH POC ABG pCO2 POC ABG pO2 Sodium 149 H Potassium 3.5 L Chloride 114.1 H Carbon Dioxide 21 L BUN 29 H Creatinine 0.4 L Glucose 128 H POC Glucose 133 H 107 H Calcium 8.3 L Magnesium Direct Bilirubin 0.4 H AST 149 H ALT 182 H Alkaline Phosphatase 143 H Total Creatine Kinase CK-MB (CK-2) CK-MB (CK-2) Rel Index Troponin T C-Reactive Protein Total Protein Albumin 2.5 L Triglycerides Ur Specific [place] Urine WBC (Auto) Miscellaneous Test 04/15/17 04/16/17 04/16/17 16:55 00:02 03:17 WBC RBC 3.39 L Hgb 10.5 L Hct 32.4 L MCV 96 H MCH Plt Count 106 L Lymph % (Auto) 6.7 L Edd[place] % (Auto) Eos % (Auto) Baso % (Auto) Lymph # 0.6 L Baso # Seg Neutrophils % 86.8 H Lymphocytes % (Manual) Monocytes % (Manual) Nucleated RBC % Seg Neutrophils # 8.2 H Seg Neutrophils # Man Monocytes # (Manual) PT INR Activated Clotting Time POC ABG pH POC ABG pCO2 POC ABG pO2 Sodium Potassium Chloride Carbon Dioxide BUN Creatinine Glucose POC Glucose 146 H 148 H Calcium Magnesium Direct Bilirubin AST ALT Alkaline Phosphatase Total Creatine Kinase CK-MB (CK-2) CK-MB (CK-2) Rel Index Troponin T C-Reactive Protein Total Protein Albumin Triglycerides Ur Specific [place] Urine WBC (Auto) Miscellaneous Test 04/16/17 04/16/17 04/16/17 03:17 05:19 11:13 WBC RBC Hgb Hct MCV MCH Plt Count Lymph % (Auto) Edd[place] % (Auto) Eos % (Auto) Baso % (Auto) Lymph # Baso # Seg Neutrophils % Lymphocytes % (Manual) Monocytes % (Manual) Nucleated RBC % Seg Neutrophils # Seg Neutrophils # Man Monocytes # (Manual) PT INR Activated Clotting Time POC ABG pH POC ABG pCO2 POC ABG pO2 Sodium 149 H Potassium Chloride 111.1 H Carbon Dioxide 20 L BUN 27 H Creatinine 0.3 L Glucose 156 H POC Glucose 171 H 169 H Calcium 8.3 L Magnesium Direct Bilirubin AST ALT Alkaline Phosphatase Total Creatine Kinase CK-MB (CK-2) CK-MB (CK-2) Rel Index Troponin T C-Reactive Protein Total Protein Albumin Triglycerides Ur Specific [place] Urine WBC (Auto) Miscellaneous Test 04/16/17 04/17/17 04/17/17 17:03 00:00 05:09 WBC RBC Hgb Hct MCV MCH Plt Count Lymph % (Auto) [place] % (Auto) Eos % (Auto) Baso % (Auto) Lymph # Baso # Seg Neutrophils % Lymphocytes % (Manual) Monocytes % (Manual) Nucleated RBC % Seg Neutrophils # Seg Neutrophils # Man Monocytes # (Manual) PT INR Activated Clotting Time POC ABG pH POC ABG pCO2 POC ABG pO2 Sodium Potassium Chloride Carbon Dioxide BUN Creatinine Glucose POC Glucose 151 H 165 H 145 H Calcium Magnesium Direct Bilirubin AST ALT Alkaline Phosphatase Total Creatine Kinase CK-MB (CK-2) CK-MB (CK-2) Rel Index Troponin T C-Reactive Protein Total Protein Albumin Triglycerides Ur Specific [place] Urine WBC (Auto) Miscellaneous Test 04/17/17 04/17/17 04/18/17 11:38 17:47 00:01 WBC RBC Hgb Hct MCV MCH Plt Count Lymph % (Auto) [place] % (Auto) Eos % (Auto) Baso % (Auto) Lymph # Baso # Seg Neutrophils % Lymphocytes % (Manual) Monocytes % (Manual) Nucleated RBC % Seg Neutrophils # Seg Neutrophils # Man Monocytes # (Manual) PT INR Activated Clotting Time POC ABG pH POC ABG pCO2 POC ABG pO2 Sodium Potassium Chloride Carbon Dioxide BUN Creatinine Glucose POC Glucose 170 H 161 H 131 H Calcium Magnesium Direct Bilirubin AST ALT Alkaline Phosphatase Total Creatine Kinase CK-MB (CK-2) CK-MB (CK-2) Rel Index Troponin T C-Reactive Protein Total Protein Albumin Triglycerides Ur Specific [place] Urine WBC (Auto) Miscellaneous Test 04/18/17 04/18/17 04/18/17 03:55 03:55 05:30 WBC RBC 3.05 L Hgb 9.8 L Hct 29.0 L MCV 95 H MCH Plt Count 113 L Lymph % (Auto) Eddy % (Auto) Eos % (Auto) 5.3 H Baso % (Auto) Lymph # Baso # Seg Neutrophils % 71.5 H Lymphocytes % (Manual) Monocytes % (Manual) Nucleated RBC % Seg Neutrophils # Seg Neutrophils # Man Monocytes # (Manual) PT INR Activated Clotting Time POC ABG pH 7.460 H POC ABG pCO2 30.8 L POC ABG pO2 129 H Sodium Potassium Chloride Carbon Dioxide 21 L BUN 25 H Creatinine 0.4 L Glucose 123 H POC Glucose Calcium 8.3 L Magnesium Direct Bilirubin AST ALT Alkaline Phosphatase Total Creatine Kinase CK-MB (CK-2) CK-MB (CK-2) Rel Index Troponin T C-Reactive Protein Total Protein Albumin Triglycerides Ur Specific [place] Urine WBC (Auto) Miscellaneous Test 04/18/17 04/18/17 04/19/17 17:10 23:40 04:36 WBC RBC 3.21 L Hgb 10.2 L Hct 30.4 L MCV 95 H MCH Plt Count 131 L Lymph % (Auto) 12.1 L [place] % (Auto) Eos % (Auto) 4.7 H Baso % (Auto) 2.4 H Lymph # 0.9 L Baso # 0.2 H Seg Neutrophils % 75.0 H Lymphocytes % (Manual) Monocytes % (Manual) Nucleated RBC % Seg Neutrophils # Seg Neutrophils # Man Monocytes # (Manual) PT INR Activated Clotting Time POC ABG pH POC ABG pCO2 POC ABG pO2 Sodium Potassium Chloride Carbon Dioxide BUN Creatinine Glucose POC Glucose 135 H 157 H Calcium Magnesium Direct Bilirubin AST ALT Alkaline Phosphatase Total Creatine Kinase CK-MB (CK-2) CK-MB (CK-2) Rel Index Troponin T C-Reactive Protein Total Protein Albumin Triglycerides Ur Specific [place] Urine WBC (Auto) Miscellaneous Test 04/19/17 04/19/17 04/19/17 04:36 05:12 06:50 WBC RBC Hgb Hct MCV MCH Plt Count Lymph % (Auto) [place] % (Auto) Eos % (Auto) Baso % (Auto) Lymph # Baso # Seg Neutrophils % Lymphocytes % (Manual) Monocytes % (Manual) Nucleated RBC % Seg Neutrophils # Seg Neutrophils # Man Monocytes # (Manual) PT INR Activated Clotting Time POC ABG pH 7.516 H POC ABG pCO2 28.0 L POC ABG pO2 Sodium Potassium Chloride Carbon Dioxide 21 L BUN 23 H Creatinine 0.2 L Glucose 137 H POC Glucose 131 H Calcium 7.9 L Magnesium Direct Bilirubin AST ALT Alkaline Phosphatase Total Creatine Kinase CK-MB (CK-2) CK-MB (CK-2) Rel Index Troponin T C-Reactive Protein Total Protein Albumin Triglycerides Ur Specific [place] Urine WBC (Auto) Miscellaneous Test 04/19/17 04/19/17 04/20/17 12:36 17:42 00:12 WBC RBC Hgb Hct MCV MCH Plt Count Lymph % (Auto) [place] % (Auto) Eos % (Auto) Baso % (Auto) Lymph # Baso # Seg Neutrophils % Lymphocytes % (Manual) Monocytes % (Manual) Nucleated RBC % Seg Neutrophils # Seg Neutrophils # Man Monocytes # (Manual) PT INR Activated Clotting Time POC ABG pH POC ABG pCO2 POC ABG pO2 Sodium Potassium Chloride Carbon Dioxide BUN Creatinine Glucose POC Glucose 128 H 140 H 132 H Calcium Magnesium Direct Bilirubin AST ALT Alkaline Phosphatase Total Creatine Kinase CK-MB (CK-2) CK-MB (CK-2) Rel Index Troponin T C-Reactive Protein Total Protein Albumin Triglycerides Ur Specific [place] Urine WBC (Auto) Miscellaneous Test 04/20/17 04/20/17 04/20/17 03:35 03:35 05:10 WBC RBC 3.34 L Hgb 10.4 L Hct 31.6 L MCV 95 H MCH Plt Count Lymph % (Auto) 12.9 L [place] % (Auto) Eos % (Auto) Baso % (Auto) Lymph # Baso # Seg Neutrophils % 77.3 H Lymphocytes % (Manual) Monocytes % (Manual) Nucleated RBC % Seg Neutrophils # Seg Neutrophils # Man Monocytes # (Manual) PT INR Activated Clotting Time POC ABG pH POC ABG pCO2 POC ABG pO2 Sodium Potassium Chloride Carbon Dioxide BUN Creatinine 0.3 L Glucose 155 H POC Glucose 135 H Calcium 7.8 L Magnesium Direct Bilirubin AST ALT Alkaline Phosphatase Total Creatine Kinase CK-MB (CK-2) CK-MB (CK-2) Rel Index Troponin T C-Reactive Protein Total Protein Albumin Triglycerides Ur Specific [place] Urine WBC (Auto) Miscellaneous Test 04/20/17 04/20/17 04/21/17 12:49 18:21 00:05 WBC RBC Hgb Hct MCV MCH Plt Count Lymph % (Auto) [place] % (Auto) Eos % (Auto) Baso % (Auto) Lymph # Baso # Seg Neutrophils % Lymphocytes % (Manual) Monocytes % (Manual) Nucleated RBC % Seg Neutrophils # Seg Neutrophils # Man Monocytes # (Manual) PT INR Activated Clotting Time POC ABG pH POC ABG pCO2 POC ABG pO2 Sodium Potassium Chloride Carbon Dioxide BUN Creatinine Glucose POC Glucose 155 H 165 H 141 H Calcium Magnesium Direct Bilirubin AST ALT Alkaline Phosphatase Total Creatine Kinase CK-MB (CK-2) CK-MB (CK-2) Rel Index Troponin T C-Reactive Protein Total Protein Albumin Triglycerides Ur Specific [place] Urine WBC (Auto) Miscellaneous Test 04/21/17 04/21/17 04/21/17 06:00 12:11 17:04 WBC RBC Hgb Hct MCV MCH Plt Count Lymph % (Auto) [place] % (Auto) Eos % (Auto) Baso % (Auto) Lymph # Baso # Seg Neutrophils % Lymphocytes % (Manual) Monocytes % (Manual) Nucleated RBC % Seg Neutrophils # Seg Neutrophils # Man Monocytes # (Manual) PT INR Activated Clotting Time POC ABG pH POC ABG pCO2 POC ABG pO2 Sodium Potassium Chloride Carbon Dioxide BUN Creatinine Glucose POC Glucose 152 H 165 H 156 H Calcium Magnesium Direct Bilirubin AST ALT Alkaline Phosphatase Total Creatine Kinase CK-MB (CK-2) CK-MB (CK-2) Rel Index Troponin T C-Reactive Protein Total Protein Albumin Triglycerides Ur Specific [place] Urine WBC (Auto) Miscellaneous Test 04/21/17 04/21/17 04/22/17 22:00 23:59 05:49 WBC RBC Hgb Hct MCV MCH Plt Count Lymph % (Auto) [place] % (Auto) Eos % (Auto) Baso % (Auto) Lymph # Baso # Seg Neutrophils % Lymphocytes % (Manual) Monocytes % (Manual) Nucleated RBC % Seg Neutrophils # Seg Neutrophils # Man Monocytes # (Manual) PT INR Activated Clotting Time POC ABG pH POC ABG pCO2 POC ABG pO2 Sodium Potassium Chloride Carbon Dioxide BUN Creatinine Glucose POC Glucose 166 H 173 H Calcium Magnesium Direct Bilirubin AST ALT Alkaline Phosphatase Total Creatine Kinase CK-MB (CK-2) CK-MB (CK-2) Rel Index Troponin T C-Reactive Protein Total Protein Albumin Triglycerides Ur Specific [place] Urine WBC (Auto) 10.0 H Miscellaneous Test 04/22/17 04/22/17 04/23/17 11:11 18:04 00:37 WBC RBC Hgb Hct MCV MCH Plt Count Lymph % (Auto) [place] % (Auto) Eos % (Auto) Baso % (Auto) Lymph # Baso # Seg Neutrophils % Lymphocytes % (Manual) Monocytes % (Manual) Nucleated RBC % Seg Neutrophils # Seg Neutrophils # Man Monocytes # (Manual) PT INR Activated Clotting Time POC ABG pH POC ABG pCO2 POC ABG pO2 Sodium Potassium Chloride Carbon Dioxide BUN Creatinine Glucose POC Glucose 172 H 140 H 135 H Calcium Magnesium Direct Bilirubin AST ALT Alkaline Phosphatase Total Creatine Kinase CK-MB (CK-2) CK-MB (CK-2) Rel Index Troponin T C-Reactive Protein Total Protein Albumin Triglycerides Ur Specific [place] Urine WBC (Auto) Miscellaneous Test 04/23/17 04/23/17 04/23/17 05:33 06:20 11:10 WBC RBC 3.19 L Hgb 9.9 L Hct 30.0 L MCV MCH Plt Count Lymph % (Auto) 8.0 L [place] % (Auto) Eos % (Auto) Baso % (Auto) Lymph # 0.8 L Baso # Seg Neutrophils % 84.5 H Lymphocytes % (Manual) Monocytes % (Manual) Nucleated RBC % Seg Neutrophils # 8.2 H Seg Neutrophils # Man Monocytes # (Manual) PT INR Activated Clotting Time POC ABG pH POC ABG pCO2 POC ABG pO2 Sodium Potassium Chloride Carbon Dioxide BUN Creatinine Glucose POC Glucose 134 H 134 H Calcium Magnesium Direct Bilirubin AST ALT Alkaline Phosphatase Total Creatine Kinase CK-MB (CK-2) CK-MB (CK-2) Rel Index Troponin T C-Reactive Protein Total Protein Albumin Triglycerides Ur Specific [place] Urine WBC (Auto) Miscellaneous Test 04/23/17 04/24/17 04/24/17 17:26 00:53 06:46 WBC RBC Hgb Hct MCV MCH Plt Count Lymph % (Auto) [place] % (Auto) Eos % (Auto) Baso % (Auto) Lymph # Baso # Seg Neutrophils % Lymphocytes % (Manual) Monocytes % (Manual) Nucleated RBC % Seg Neutrophils # Seg Neutrophils # Man Monocytes # (Manual) PT INR Activated Clotting Time POC ABG pH POC ABG pCO2 POC ABG pO2 Sodium Potassium Chloride Carbon Dioxide BUN Creatinine Glucose POC Glucose 164 H 146 H 125 H Calcium Magnesium Direct Bilirubin AST ALT Alkaline Phosphatase Total Creatine Kinase CK-MB (CK-2) CK-MB (CK-2) Rel Index Troponin T C-Reactive Protein Total Protein Albumin Triglycerides Ur Specific [place] Urine WBC (Auto) Miscellaneous Test 04/24/17 04/24/17 04/24/17 11:55 17:50 23:36 WBC RBC Hgb Hct MCV MCH Plt Count Lymph % (Auto) [place] % (Auto) Eos % (Auto) Baso % (Auto) Lymph # Baso # Seg Neutrophils % Lymphocytes % (Manual) Monocytes % (Manual) Nucleated RBC % Seg Neutrophils # Seg Neutrophils # Man Monocytes # (Manual) PT INR Activated Clotting Time POC ABG pH POC ABG pCO2 POC ABG pO2 Sodium Potassium Chloride Carbon Dioxide BUN Creatinine Glucose POC Glucose 156 H 146 H 131 H Calcium Magnesium Direct Bilirubin AST ALT Alkaline Phosphatase Total Creatine Kinase CK-MB (CK-2) CK-MB (CK-2) Rel Index Troponin T C-Reactive Protein Total Protein Albumin Triglycerides Ur Specific [place] Urine WBC (Auto) Miscellaneous Test 04/25/17 04/25/17 04/25/17 04:51 05:16 07:07 WBC RBC Hgb Hct MCV MCH Plt Count Lymph % (Auto) [place] % (Auto) Eos % (Auto) Baso % (Auto) Lymph # Baso # Seg Neutrophils % Lymphocytes % (Manual) Monocytes % (Manual) Nucleated RBC % Seg Neutrophils # Seg Neutrophils # Man Monocytes # (Manual) PT INR Activated Clotting Time POC ABG pH POC ABG pCO2 POC ABG pO2 Sodium Potassium Chloride Carbon Dioxide BUN Creatinine Glucose POC Glucose 139 H Calcium Magnesium Direct Bilirubin AST 105 H ALT 204 H Alkaline Phosphatase 189 H Total Creatine Kinase CK-MB (CK-2) CK-MB (CK-2) Rel Index Troponin T C-Reactive Protein Total Protein Albumin 2.4 L Triglycerides Ur Specific [place] Urine WBC (Auto) Miscellaneous Test Flexitest 1 H 04/25/17 04/25/17 04/25/17 12:29 17:23 23:32 WBC RBC Hgb Hct MCV MCH Plt Count Lymph % (Auto) [place] % (Auto) Eos % (Auto) Baso % (Auto) Lymph # Baso # Seg Neutrophils % Lymphocytes % (Manual) Monocytes % (Manual) Nucleated RBC % Seg Neutrophils # Seg Neutrophils # Man Monocytes # (Manual) PT INR Activated Clotting Time POC ABG pH POC ABG pCO2 POC ABG pO2 Sodium Potassium Chloride Carbon Dioxide BUN Creatinine Glucose POC Glucose 132 H 133 H 128 H Calcium Magnesium Direct Bilirubin AST ALT Alkaline Phosphatase Total Creatine Kinase CK-MB (CK-2) CK-MB (CK-2) Rel Index Troponin T C-Reactive Protein Total Protein Albumin Triglycerides Ur Specific [place] Urine WBC (Auto) Miscellaneous Test 04/26/17 04/26/17 04/26/17 05:24 11:28 17:09 WBC RBC Hgb Hct MCV MCH Plt Count Lymph % (Auto) [place] % (Auto) Eos % (Auto) Baso % (Auto) Lymph # Baso # Seg Neutrophils % Lymphocytes % (Manual) Monocytes % (Manual) Nucleated RBC % Seg Neutrophils # Seg Neutrophils # Man Monocytes # (Manual) PT INR Activated Clotting Time POC ABG pH POC ABG pCO2 POC ABG pO2 Sodium Potassium Chloride Carbon Dioxide BUN Creatinine Glucose POC Glucose 132 H 146 H 141 H Calcium Magnesium Direct Bilirubin AST ALT Alkaline Phosphatase Total Creatine Kinase CK-MB (CK-2) CK-MB (CK-2) Rel Index Troponin T C-Reactive Protein Total Protein Albumin Triglycerides Ur Specific [place] Urine WBC (Auto) Miscellaneous Test 04/26/17 04/27/17 04/27/17 23:52 05:40 05:40 WBC RBC 3.22 L Hgb 10.0 L Hct 29.9 L MCV MCH Plt Count Lymph % (Auto) [place] % (Auto) Eos % (Auto) Baso % (Auto) Lymph # Baso # Seg Neutrophils % 76.6 H Lymphocytes % (Manual) Monocytes % (Manual) Nucleated RBC % Seg Neutrophils # Seg Neutrophils # Man Monocytes # (Manual) PT INR Activated Clotting Time POC ABG pH POC ABG pCO2 POC ABG pO2 Sodium Potassium Chloride Carbon Dioxide BUN Creatinine Glucose POC Glucose 140 H Calcium Magnesium Direct Bilirubin AST 66 H ALT 137 H Alkaline Phosphatase 169 H Total Creatine Kinase CK-MB (CK-2) CK-MB (CK-2) Rel Index Troponin T C-Reactive Protein Total Protein 6.2 L Albumin 2.6 L Triglycerides Ur Specific [place] Urine WBC (Auto) Miscellaneous Test 04/27/17 04/27/17 04/27/17 05:40 06:10 11:13 WBC RBC Hgb Hct MCV MCH Plt Count Lymph % (Auto) [place] % (Auto) Eos % (Auto) Baso % (Auto) Lymph # Baso # Seg Neutrophils % Lymphocytes % (Manual) Monocytes % (Manual) Nucleated RBC % Seg Neutrophils # Seg Neutrophils # Man Monocytes # (Manual) PT INR Activated Clotting Time POC ABG pH POC ABG pCO2 POC ABG pO2 Sodium Potassium Chloride Carbon Dioxide BUN Creatinine 0.2 L Glucose 139 H POC Glucose 130 H 151 H Calcium Magnesium Direct Bilirubin AST ALT Alkaline Phosphatase Total Creatine Kinase CK-MB (CK-2) CK-MB (CK-2) Rel Index Troponin T C-Reactive Protein Total Protein Albumin Triglycerides Ur Specific [place] Urine WBC (Auto) Miscellaneous Test 04/27/17 04/27/17 04/28/17 17:37 23:19 05:24 WBC RBC Hgb Hct MCV MCH Plt Count Lymph % (Auto) [place] % (Auto) Eos % (Auto) Baso % (Auto) Lymph # Baso # Seg Neutrophils % Lymphocytes % (Manual) Monocytes % (Manual) Nucleated RBC % Seg Neutrophils # Seg Neutrophils # Man Monocytes # (Manual) PT INR Activated Clotting Time POC ABG pH POC ABG pCO2 POC ABG pO2 Sodium Potassium Chloride Carbon Dioxide BUN Creatinine Glucose POC Glucose 159 H 130 H 132 H Calcium Magnesium Direct Bilirubin AST ALT Alkaline Phosphatase Total Creatine Kinase CK-MB (CK-2) CK-MB (CK-2) Rel Index Troponin T C-Reactive Protein Total Protein Albumin Triglycerides Ur Specific [place] Urine WBC (Auto) Miscellaneous Test 04/28/17 04/28/17 04/28/17 11:15 17:38 23:23 WBC RBC Hgb Hct MCV MCH Plt Count Lymph % (Auto) [place] % (Auto) Eos % (Auto) Baso % (Auto) Lymph # Baso # Seg Neutrophils % Lymphocytes % (Manual) Monocytes % (Manual) Nucleated RBC % Seg Neutrophils # Seg Neutrophils # Man Monocytes # (Manual) PT INR Activated Clotting Time POC ABG pH POC ABG pCO2 POC ABG pO2 Sodium Potassium Chloride Carbon Dioxide BUN Creatinine Glucose POC Glucose 162 H 133 H 138 H Calcium Magnesium Direct Bilirubin AST ALT Alkaline Phosphatase Total Creatine Kinase CK-MB (CK-2) CK-MB (CK-2) Rel Index Troponin T C-Reactive Protein Total Protein Albumin Triglycerides Ur Specific [place] Urine WBC (Auto) Miscellaneous Test 04/29/17 04/29/17 04/29/17 05:15 12:55 17:21 WBC RBC Hgb Hct MCV MCH Plt Count Lymph % (Auto) [place] % (Auto) Eos % (Auto) Baso % (Auto) Lymph # Baso # Seg Neutrophils % Lymphocytes % (Manual) Monocytes % (Manual) Nucleated RBC % Seg Neutrophils # Seg Neutrophils # Man Monocytes # (Manual) PT INR Activated Clotting Time POC ABG pH POC ABG pCO2 POC ABG pO2 Sodium Potassium Chloride Carbon Dioxide BUN Creatinine Glucose POC Glucose 135 H 127 H 138 H Calcium Magnesium Direct Bilirubin AST ALT Alkaline Phosphatase Total Creatine Kinase CK-MB (CK-2) CK-MB (CK-2) Rel Index Troponin T C-Reactive Protein Total Protein Albumin Triglycerides Ur Specific [place] Urine WBC (Auto) Miscellaneous Test 04/29/17 04/30/17 04/30/17 23:52 04:55 12:22 WBC RBC Hgb Hct MCV MCH Plt Count Lymph % (Auto) [place] % (Auto) Eos % (Auto) Baso % (Auto) Lymph # Baso # Seg Neutrophils % Lymphocytes % (Manual) Monocytes % (Manual) Nucleated RBC % Seg Neutrophils # Seg Neutrophils # Man Monocytes # (Manual) PT INR Activated Clotting Time POC ABG pH POC ABG pCO2 POC ABG pO2 Sodium Potassium Chloride Carbon Dioxide BUN Creatinine Glucose POC Glucose 142 H 146 H 132 H Calcium Magnesium Direct Bilirubin AST ALT Alkaline Phosphatase Total Creatine Kinase CK-MB (CK-2) CK-MB (CK-2) Rel Index Troponin T C-Reactive Protein Total Protein Albumin Triglycerides Ur Specific [place] Urine WBC (Auto) Miscellaneous Test 04/30/17 04/30/17 04/30/17 14:25 17:47 18:20 WBC RBC Hgb Hct MCV MCH Plt Count Lymph % (Auto) [place] % (Auto) Eos % (Auto) Baso % (Auto) Lymph # Baso # Seg Neutrophils % Lymphocytes % (Manual) Monocytes % (Manual) Nucleated RBC % Seg Neutrophils # Seg Neutrophils # Man Monocytes # (Manual) PT INR Activated Clotting Time POC ABG pH 7.551 H POC ABG pCO2 32.7 L POC ABG pO2 Sodium Potassium Chloride Carbon Dioxide BUN 21 H Creatinine 0.2 L Glucose 141 H POC Glucose 139 H Calcium Magnesium Direct Bilirubin AST ALT Alkaline Phosphatase Total Creatine Kinase CK-MB (CK-2) CK-MB (CK-2) Rel Index Troponin T C-Reactive Protein Total Protein Albumin Triglycerides Ur Specific [place] Urine WBC (Auto) Miscellaneous Test 05/01/17 05/01/17 05/01/17 01:26 05:30 05:30 WBC RBC 3.49 L Hgb 10.3 L Hct 31.9 L MCV MCH Plt Count Lymph % (Auto) [place] % (Auto) 8.1 H Eos % (Auto) Baso % (Auto) Lymph # Baso # Seg Neutrophils % 71.3 H Lymphocytes % (Manual) Monocytes % (Manual) Nucleated RBC % Seg Neutrophils # Seg Neutrophils # Man Monocytes # (Manual) PT INR Activated Clotting Time POC ABG pH POC ABG pCO2 POC ABG pO2 Sodium 136 L Potassium Chloride 97.6 L Carbon Dioxide BUN Creatinine 0.2 L Glucose 123 H POC Glucose 116 H Calcium Magnesium Direct Bilirubin AST 71 H ALT 125 H Alkaline Phosphatase 158 H Total Creatine Kinase CK-MB (CK-2) CK-MB (CK-2) Rel Index Troponin T C-Reactive Protein Total Protein Albumin 2.6 L Triglycerides Ur Specific [place] Urine WBC (Auto) Miscellaneous Test Chest x-ray: report reviewed, image reviewed
[2017-05-01] MEDS: COLACE FEEDTUBE SCH ×2 (10:30→21:43)
[2017-05-01] MEDS: PLAVIX PO SCH (10:34)
[2017-05-01] MEDS: PROTONIX FEEDTUBE SCH (10:34)
[2017-05-01] MEDS: CORDARONE PO SCH ×2 (10:34→21:44)
[2017-05-01] MEDS: ASPIRIN PO SCH (10:34)
[2017-05-01] MEDS: HEPARIN SUB-Q SCH ×2 (10:34→21:45)
[2017-05-01] MEDS: ZESTRIL PO SCH (10:35)
--- NOTE | 2017-05-01 16:46 | Progress Note ---
Assessment and Plan Assessment and plan: Graciela fib arrest status post CPR anoxic encephalopathy respiratory failure vent dependent tracheostomy and PEG placement MRSA pneumonia with status. Sepsis poor prognosis, full CODE STATUS -- acute hypoxic hypercapnic respiratory failure ; status post trach, vent dependent, and the new current management --s/p cardiac arrest ; status post CPR -- anoxic encephalopathy, vegetative state, supportive care --Acute anterior STEMI; status post PCI, cardiology following --MRSA pneumonia/aspiration pneumonia, contact isolation patient received full treatment with Zyvox --Hypertension; BP in the lower range. --Febrile illness; aspiration pneumonia; sepsis; on antibiotics ID following --Cardiogenic shock; off pressors, closely monitor --s/p trach and PEG, continue PEG feeds --Severe Protein calorie malnutrition: Peg feeds and nutrition suppliments --DVT prophylaxis; Lovenox --Full CODE STATUS Poor prognosis family aware Social issues , Medicaid application is in process Disposition; possible transfer to LTAC/SNF Very difficult to place, secondary to no payor source History Interval history: Patient seen and examined this morning medical records reviewed Clinically no change, patient remains unresponsive status post tracheostomy , vent dependent Vital signs reviewed Hospitalist Physical - Constitutional Vitals: Temp Pulse Resp BP Pulse Ox 99.7 F H 85 21 83/54 98 05/01/17 08:56 05/01/17 16:00 05/01/17 16:00 05/01/17 16:00 05/01/17 16:00 General appearance: Present: no acute distress, well-nourished, other ( tracheostomy on ventilatory support) - EENT Eyes: Present: PERRL, EOM intact - Neck Neck: Present: supple, normal ROM - Respiratory Respiratory effort: normal Respiratory: bilateral: diminished, rhonchi, negative: rales, wheezing - Cardiovascular Rhythm: regular Heart Sounds: Present: S1 & S2 - Extremities Extremities: no ischemia, No edema - Abdominal General gastrointestinal: soft, non-tender, non-distended, normal bowel sounds - Integumentary Integumentary: Present: clear, warm - Psychiatric Psychiatric: other (unresponsive) - Neurologic Neurologic: other (unresponsive) Results - Labs CBC & Chem 7: 05/01/17 05:30 05/01/17 05:30 Labs: Laboratory Last Values WBC 7.8 K/mm3 (4.5-11.0) 05/01/17 05:30 RBC 3.49 M/mm3 (3.65-5.03) L 05/01/17 05:30 Hgb 10.3 gm/dl (11.8-15.2) L 05/01/17 05:30 Hct 31.9 % (35.5-45.6) L 05/01/17 05:30 MCV 92 fl (84-94) 05/01/17 05:30 MCH 30 pg (28-32) 05/01/17 05:30 MCHC 32 % (32-34) 05/01/17 05:30 RDW 15.1 % (13.2-15.2) 05/01/17 05:30 Plt Count 280 K/mm3 (140-440) 05/01/17 05:30 Lymph % (Auto) 17.7 % (13.4-35.0) 05/01/17 05:30 [place] % (Auto) 8.1 % (0.0-7.3) H 05/01/17 05:30 Eos % (Auto) 2.5 % (0.0-4.3) 05/01/17 05:30 Baso % (Auto) 0.4 % (0.0-1.8) 05/01/17 05:30 Lymph # 1.4 K/mm3 (1.2-5.4) 05/01/17 05:30 [place] # 0.6 K/mm3 (0.0-0.8) 05/01/17 05:30 Eos # 0.2 K/mm3 (0.0-0.4) 05/01/17 05:30 Baso # 0.0 K/mm3 (0.0-0.1) 05/01/17 05:30 Add Manual Diff Complete 03/30/17 03:50 Total Counted 100 03/30/17 03:50 Seg Neutrophils % 71.3 % (40.0-70.0) H 05/01/17 05:30 Seg Neuts % (Manual) 65.0 % (40.0-70.0) 03/30/17 03:50 Band Neutrophils % 17.0 % 03/30/17 03:50 Lymphocytes % (Manual) 7.0 % (13.4-35.0) L 03/30/17 03:50 Reactive Lymphs % (Man) 0 % 03/30/17 03:50 Monocytes % (Manual) 7.0 % (0.0-7.3) 03/30/17 03:50 Eosinophils % (Manual) 0 % (0.0-4.3) 03/30/17 03:50 Basophils % (Manual) 0 % (0.0-1.8) 03/30/17 03:50 Metamyelocytes % 4.0 % 03/30/17 03:50 Myelocytes % 0 % 03/30/17 03:50 Promyelocytes % 0 % 03/30/17 03:50 Blast Cells % 0 % 03/30/17 03:50 Nucleated RBC % Not Reportable 03/30/17 03:50 Seg Neutrophils # 5.6 K/mm3 (1.8-7.7) 05/01/17 05:30 Seg Neutrophils # Man 12.7 K/mm3 (1.8-7.7) H 03/30/17 03:50 Band Neutrophils # 3.3 K/mm3 03/30/17 03:50 Lymphocytes # (Manual) 1.4 K/mm3 (1.2-5.4) 03/30/17 03:50 Abs React Lymphs (Man) 0.0 K/mm3 03/30/17 03:50 Monocytes # (Manual) 1.4 K/mm3 (0.0-0.8) H 03/30/17 03:50 Eosinophils # (Manual) 0.0 K/mm3 (0.0-0.4) 03/30/17 03:50 Basophils # (Manual) 0.0 K/mm3 (0.0-0.1) 03/30/17 03:50 Metamyelocytes # 0.8 K/mm3 03/30/17 03:50 Myelocytes # 0.0 K/mm3 03/30/17 03:50 Promyelocytes # 0.0 K/mm3 03/30/17 03:50 Blast Cells # 0.0 K/mm3 03/30/17 03:50 WBC Morphology Not Reportable 03/30/17 03:50 Hypersegmented Neuts Not Reportable 03/30/17 03:50 Hyposegmented Neuts Not Reportable 03/30/17 03:50 Hypogranular Neuts Not Reportable 03/30/17 03:50 Smudge Cells Not Reportable 03/30/17 03:50 Toxic Granulation Not Reportable 03/30/17 03:50 Toxic Vacuolation Not Reportable 03/30/17 03:50 Dohle Bodies Not Reportable 03/30/17 03:50 Pelger-Huet Anomaly Not Reportable 03/30/17 03:50 Sherry Rods Not Reportable 03/30/17 03:50 Platelet Estimate Appears normal 03/30/17 03:50 Clumped Platelets Not Reportable 03/30/17 03:50 Plt Clumps, EDTA Not Reportable 03/30/17 03:50 Large Platelets Not Reportable 03/30/17 03:50 Giant Platelets Not Reportable 03/30/17 03:50 Platelet Satelliting Not Reportable 03/30/17 03:50 Plt Morphology Comment Not Reportable 03/30/17 03:50 RBC Morphology Not Reportable 03/30/17 03:50 Dimorphic RBCs Not Reportable 03/30/17 03:50 Polychromasia Not Reportable 03/30/17 03:50 Hypochromasia Not Reportable 03/30/17 03:50 Poikilocytosis Not Reportable 03/30/17 03:50 Anisocytosis Few 03/30/17 03:50 Microcytosis Not Reportable 03/30/17 03:50 Macrocytosis Not Reportable 03/30/17 03:50 Spherocytes Not Reportable 03/30/17 03:50 Pappenheimer Bodies Not Reportable 03/30/17 03:50 Sickle Cells Not Reportable 03/30/17 03:50 Target Cells Not Reportable 03/30/17 03:50 Tear Drop Cells Not Reportable 03/30/17 03:50 Ovalocytes Not Reportable 03/30/17 03:50 Helmet Cells Not Reportable 03/30/17 03:50 [place] Bodies Not Reportable 03/30/17 03:50 [place] Not Reportable 03/30/17 03:50 [place] Cells Not Reportable 03/30/17 03:50 Bite Cells Not Reportable 03/30/17 03:50 Crenated Cell Not Reportable 03/30/17 03:50 Elliptocytes Not Reportable 03/30/17 03:50 Acanthocytes (Spur) Not Reportable 03/30/17 03:50 Rouleaux Not Reportable 03/30/17 03:50 Hemoglobin C Crystals Not Reportable 03/30/17 03:50 Schistocytes Not Reportable 03/30/17 03:50 Malaria parasites Not Reportable 03/30/17 03:50 [place] Bodies Not Reportable 03/30/17 03:50 Hem Pathologist Commnt No 03/30/17 03:50 PT 14.9 Sec. (12.2-14.9) 04/10/17 04:16 INR 1.11 (0.87-1.13) 04/10/17 04:16 APTT 27.8 Sec. (24.2-36.6) 04/10/17 04:16 Activated Clotting Time 92 (74-137) 03/29/17 17:47 POC ABG pH 7.551 (7.35-7.45) H 04/30/17 18:20 POC ABG pCO2 32.7 (35-45) L 04/30/17 18:20 POC ABG pO2 101 (80-105) 04/30/17 18:20 POC ABG HCO3 28.7 04/30/17 18:20 POC ABG Total CO2 30 04/30/17 18:20 POC ABG O2 Sat 99 04/30/17 18:20 POC ABG Base Excess 6 04/30/17 18:20 FiO2 30 % 04/30/17 18:20 Sodium 136 mmol/L (137-145) L 05/01/17 05:30 Potassium 3.9 mmol/L (3.6-5.0) 05/01/17 05:30 Chloride 97.6 mmol/L (98-107) L 05/01/17 05:30 Carbon Dioxide 25 mmol/L (22-30) 05/01/17 05:30 Anion Gap 17 mmol/L 05/01/17 05:30 BUN 16 mg/dL (9-20) 05/01/17 05:30 Creatinine 0.2 mg/dL (0.8-1.5) L 05/01/17 05:30 Estimated GFR > 60 ml/min 05/01/17 05:30 BUN/Creatinine Ratio 80 % 05/01/17 05:30 Glucose 123 mg/dL (75-100) H 05/01/17 05:30 POC Glucose 116 (70-105) H 05/01/17 01:26 Calcium 8.9 mg/dL (8.4-10.2) 05/01/17 05:30 Phosphorus 3.50 mg/dL (2.5-4.5) 04/13/17 04:45 Magnesium 1.80 mg/dL (1.7-2.3) 05/01/17 05:30 Total Bilirubin 0.60 mg/dL (0.1-1.2) 05/01/17 05:30 Direct Bilirubin < 0.2 mg/dL (0-0.2) 04/27/17 05:40 Indirect Bilirubin 0.3 mg/dL 04/25/17 04:51 AST 71 units/L (5-40) H 05/01/17 05:30 ALT 125 units/L (7-56) H 05/01/17 05:30 Alkaline Phosphatase 158 units/L (35-129) H 05/01/17 05:30 Total Creatine Kinase 1404 units/L (55-170) H 04/12/17 21:36 CK-MB (CK-2) 8.0 ng/mL (0.0-4.0) H 04/12/17 21:36 CK-MB (CK-2) Rel Index 0.5 (0-4) 04/12/17 21:36 Troponin T 0.767 ng/mL (0.00-0.029) H* 04/12/17 21:36 C-Reactive Protein 21.80 mg/dL (0.00-1.30) H 03/30/17 16:04 Total Protein 6.7 g/dL (6.3-8.2) 05/01/17 05:30 Albumin 2.6 g/dL (3.9-5) L 05/01/17 05:30 Albumin/Globulin Ratio 0.6 % 05/01/17 05:30 Triglycerides 151 mg/dL (2-149) H 04/01/17 04:29 Cholesterol 164 mg/dL (50-199) 03/29/17 19:52 LDL Cholesterol Direct 81 mg/dL (50-130) 03/29/17 19:52 HDL Cholesterol 44 mg/dL (40-59) 03/29/17 19:52 Cholesterol/HDL Ratio 3.72 % 03/29/17 19:52 Urine Color [place] (Yellow) 04/21/17 22:00 Urine Turbidity Clear (Clear) 04/21/17 22:00 Urine pH 5.0 (5.0-7.0) 04/21/17 22:00 Ur Specific [place] 1.029 (1.003-1.030) 04/21/17 22:00 Urine Protein 30 mg/dl mg/dL (Negative) 04/21/17 22:00 Urine Glucose (UA) Neg mg/dL (Negative) 04/21/17 22:00 Urine Ketones Neg mg/dL (Negative) 04/21/17 22:00 Urine Blood Mod (Negative) 04/21/17 22:00 Urine Nitrite Neg (Negative) 04/21/17 22:00 Urine Bilirubin Neg (Negative) 04/21/17 22:00 Urine Urobilinogen 4.0 mg/dL (<2.0) 04/21/17 22:00 Ur Leukocyte Esterase Neg (Negative) 04/21/17 22:00 Urine WBC (Auto) 10.0 /HPF (0.0-6.0) H 04/21/17 22:00 Urine RBC (Auto) 44.0 /HPF (0.0-6.0) 04/21/17 22:00 U Epithel Cells (Auto) < 1.0 /HPF (0-13.0) 04/21/17 22:00 Amorphous Crystals 1+ 03/30/17 09:45 Urine Mucus 3+ /HPF 04/21/17 22:00 Urine Opiates Screen Presumptive negative 03/30/17 09:45 Urine Methadone Screen Presumptive negative 03/30/17 09:45 Ur Barbiturates Screen Presumptive negative 03/30/17 09:45 Ur Phencyclidine Scrn Presumptive negative 03/30/17 09:45 Ur Amphetamines Screen Presumptive positive 03/30/17 09:45 U Benzodiazepines Scrn Presumptive positive 03/30/17 09:45 Urine Cocaine Screen Presumptive negative 03/30/17 09:45 U Marijuana (THC) Screen Presumptive negative 03/30/17 09:45 Drugs of Abuse Note Disclamer 03/30/17 09:45 Miscellaneous Test Flexitest 1 H 04/25/17 07:07 Blood Type O POSITIVE 03/29/17 11:35 Antibody Screen Negative 03/29/17 11:35
[2017-05-02] MEDS: NOVOLOG SUB-Q SCH ×4 (00:47→18:00)
[2017-05-02] MEDS: LOPRESSOR PO SCH ×3 (08:02→18:00)
--- NOTE | 2017-05-02 09:53 | Progress Note ---
Assessment and Plan Out of hospital Vfib arrest Hypoxic encephalopathy. No major changes clinically. Off sedation STEMI Prior x-rays with residual infiltrate, possibly residual vascular congestion s/p LHC with stent placement Sputum culture positive for MRSA. Prior infiltrate RLL Recommendations f/u hospital ventilator bundle, Continue blood sugar monitoring, avoid hypoglycemia Watch for fever Mechanical ventilation support, as needed Daily morning sedation vacation and initiate SBT DVT prophylaxis PPI prophylaxis Prognosis at this point appears to be poor. Recommend updating advanced direct this with family, in case they wish to change CODE STATUS. Critical care time with a 31 minutes of [id number] evaluation and coordination of care Subjective Date of service: 05/02/17 Principal diagnosis: Acute RI Interval history: Off Sedation. Unresponsive Objective Vital Signs - 12hr 05/01/17 05/02/17 05/02/17 22:00 00:00 02:00 Temperature 99.0 F Pulse Rate 91 H 93 H 90 Respiratory 20 26 H 22 Rate Blood Pressure 95/61 101/59 96/58 O2 Sat by Pulse 93 Oximetry 05/02/17 05/02/17 05/02/17 04:00 06:00 08:00 Temperature 99.3 F 98.6 F Pulse Rate 88 91 H Respiratory 21 21 Rate Blood Pressure 102/53 95/59 O2 Sat by Pulse 95 Oximetry 05/02/17 05/02/17 08:02 08:50 Temperature Pulse Rate 88 91 H Respiratory 15 Rate Blood Pressure 95/60 95/60 O2 Sat by Pulse 98 Oximetry Constitutional: comatose, other Eyes: non-icteric ENT: oropharynx moist Neck: supple, no JVD, other (tracheotomy in position) Effort: normal Ascultation: Bilateral: clear, diminished breath sounds ( ) Cardiovascular: regular rate and rhythm Gastrointestinal: normoactive bowel sounds, soft, non-tender, non-distended Integumentary: normal Extremities: no cyanosis, no edema, pink and warm Neurologic: other (comatose, flacid, some response to tactile stimulation, No posturing) Psychiatric: other (unable to assess) CBC and BMP: 05/01/17 05:30 05/01/17 05:30 ABG, PT/INR, D-dimer: ABG POC ABG pH 7.551 (7.35-7.45) H 04/30/17 18:20 POC ABG pCO2 32.7 (35-45) L 04/30/17 18:20 POC ABG pO2 101 (80-105) 04/30/17 18:20 POC ABG HCO3 28.7 04/30/17 18:20 POC ABG Total CO2 30 04/30/17 18:20 POC ABG O2 Sat 99 04/30/17 18:20 PT/INR, D-dimer PT 14.9 Sec. (12.2-14.9) 04/10/17 04:16 INR 1.11 (0.87-1.13) 04/10/17 04:16 Abnormal lab findings: Abnormal Labs 03/29/17 03/29/17 03/29/17 11:35 11:35 11:40 WBC RBC Hgb Hct MCV 98 H MCH 33 H Plt Count Lymph % (Auto) [place] % (Auto) Eos % (Auto) Baso % (Auto) Lymph # Baso # Seg Neutrophils % Lymphocytes % (Manual) Monocytes % (Manual) 9.0 H Nucleated RBC % 1.0 H Seg Neutrophils # Seg Neutrophils # Man Monocytes # (Manual) 0.9 H PT 15.8 H INR 1.20 H Activated Clotting Time POC ABG pH POC ABG pCO2 POC ABG pO2 Sodium Potassium 2.7 L* Chloride 95.3 L Carbon Dioxide 17 L BUN Creatinine Glucose 435 H POC Glucose Calcium Magnesium Direct Bilirubin AST ALT Alkaline Phosphatase Total Creatine Kinase CK-MB (CK-2) CK-MB (CK-2) Rel Index Troponin T C-Reactive Protein Total Protein 6.1 L Albumin 3.5 L Triglycerides Ur Specific [place] Urine WBC (Auto) Miscellaneous Test 03/29/17 03/29/17 03/29/17 12:34 13:10 13:25 WBC RBC Hgb Hct MCV MCH Plt Count Lymph % (Auto) [place] % (Auto) Eos % (Auto) Baso % (Auto) Lymph # Baso # Seg Neutrophils % Lymphocytes % (Manual) Monocytes % (Manual) Nucleated RBC % Seg Neutrophils # Seg Neutrophils # Man Monocytes # (Manual) PT INR Activated Clotting Time 142 H 169 H 175 H POC ABG pH POC ABG pCO2 POC ABG pO2 Sodium Potassium Chloride Carbon Dioxide BUN Creatinine Glucose POC Glucose Calcium Magnesium Direct Bilirubin AST ALT Alkaline Phosphatase Total Creatine Kinase CK-MB (CK-2) CK-MB (CK-2) Rel Index Troponin T C-Reactive Protein Total Protein Albumin Triglycerides Ur Specific [place] Urine WBC (Auto) Miscellaneous Test 03/29/17 03/29/17 03/29/17 14:50 15:18 19:52 WBC RBC Hgb Hct MCV MCH Plt Count Lymph % (Auto) [place] % (Auto) Eos % (Auto) Baso % (Auto) Lymph # Baso # Seg Neutrophils % Lymphocytes % (Manual) Monocytes % (Manual) Nucleated RBC % Seg Neutrophils # Seg Neutrophils # Man Monocytes # (Manual) PT INR Activated Clotting Time 175 H POC ABG pH 7.293 L POC ABG pCO2 POC ABG pO2 602 H Sodium Potassium Chloride Carbon Dioxide BUN Creatinine Glucose POC Glucose Calcium Magnesium Direct Bilirubin AST ALT Alkaline Phosphatase Total Creatine Kinase 7263 H CK-MB (CK-2) > 300.0 H CK-MB (CK-2) Rel Index 4.1 H Troponin T 8.080 H* D C-Reactive Protein Total Protein Albumin Triglycerides 195 H Ur Specific [place] Urine WBC (Auto) Miscellaneous Test 03/30/17 03/30/17 03/30/17 03:50 03:50 06:19 WBC 19.5 H RBC Hgb Hct MCV MCH Plt Count Lymph % (Auto) [place] % (Auto) Eos % (Auto) Baso % (Auto) Lymph # Baso # Seg Neutrophils % Lymphocytes % (Manual) 7.0 L Monocytes % (Manual) Nucleated RBC % Seg Neutrophils # Seg Neutrophils # Man 12.7 H Monocytes # (Manual) 1.4 H PT INR Activated Clotting Time POC ABG pH POC ABG pCO2 28.2 L POC ABG pO2 108 H Sodium Potassium Chloride 108.9 H Carbon Dioxide 15 L BUN 25 H Creatinine Glucose 158 H POC Glucose Calcium 8.1 L Magnesium Direct Bilirubin AST ALT Alkaline Phosphatase Total Creatine Kinase 7963 H CK-MB (CK-2) > 300.0 H CK-MB (CK-2) Rel Index Troponin T 6.850 H* C-Reactive Protein Total Protein Albumin Triglycerides Ur Specific [place] Urine WBC (Auto) Miscellaneous Test 03/30/17 03/30/17 03/31/17 09:45 16:04 02:19 WBC RBC Hgb Hct MCV MCH Plt Count Lymph % (Auto) [place] % (Auto) Eos % (Auto) Baso % (Auto) Lymph # Baso # Seg Neutrophils % Lymphocytes % (Manual) Monocytes % (Manual) Nucleated RBC % Seg Neutrophils # Seg Neutrophils # Man Monocytes # (Manual) PT INR Activated Clotting Time POC ABG pH POC ABG pCO2 POC ABG pO2 Sodium Potassium Chloride Carbon Dioxide BUN Creatinine Glucose POC Glucose 137 H Calcium Magnesium Direct Bilirubin AST ALT Alkaline Phosphatase Total Creatine Kinase CK-MB (CK-2) CK-MB (CK-2) Rel Index Troponin T C-Reactive Protein 21.80 H Total Protein Albumin Triglycerides Ur Specific [place] 1.031 H Urine WBC (Auto) Miscellaneous Test 03/31/17 03/31/17 03/31/17 03:57 06:54 09:22 WBC RBC Hgb Hct MCV MCH Plt Count Lymph % (Auto) [place] % (Auto) Eos % (Auto) Baso % (Auto) Lymph # Baso # Seg Neutrophils % Lymphocytes % (Manual) Monocytes % (Manual) Nucleated RBC % Seg Neutrophils # Seg Neutrophils # Man Monocytes # (Manual) PT INR Activated Clotting Time POC ABG pH 7.475 H POC ABG pCO2 25.4 L POC ABG pO2 62 L Sodium Potassium Chloride Carbon Dioxide 19 L BUN 22 H Creatinine 0.6 L Glucose 148 H POC Glucose 143 H Calcium 8.3 L Magnesium Direct Bilirubin AST ALT Alkaline Phosphatase Total Creatine Kinase CK-MB (CK-2) CK-MB (CK-2) Rel Index Troponin T C-Reactive Protein Total Protein Albumin Triglycerides Ur Specific [place] Urine WBC (Auto) Miscellaneous Test 03/31/17 03/31/17 03/31/17 11:40 17:47 23:38 WBC RBC Hgb Hct MCV MCH Plt Count Lymph % (Auto) [place] % (Auto) Eos % (Auto) Baso % (Auto) Lymph # Baso # Seg Neutrophils % Lymphocytes % (Manual) Monocytes % (Manual) Nucleated RBC % Seg Neutrophils # Seg Neutrophils # Man Monocytes # (Manual) PT INR Activated Clotting Time POC ABG pH POC ABG pCO2 POC ABG pO2 Sodium Potassium Chloride Carbon Dioxide BUN Creatinine Glucose POC Glucose 127 H 137 H 148 H Calcium Magnesium Direct Bilirubin AST ALT Alkaline Phosphatase Total Creatine Kinase CK-MB (CK-2) CK-MB (CK-2) Rel Index Troponin T C-Reactive Protein Total Protein Albumin Triglycerides Ur Specific [place] Urine WBC (Auto) Miscellaneous Test 04/01/17 04/01/17 04/01/17 04:29 05:01 11:54 WBC RBC Hgb Hct MCV MCH Plt Count Lymph % (Auto) [place] % (Auto) Eos % (Auto) Baso % (Auto) Lymph # Baso # Seg Neutrophils % Lymphocytes % (Manual) Monocytes % (Manual) Nucleated RBC % Seg Neutrophils # Seg Neutrophils # Man Monocytes # (Manual) PT INR Activated Clotting Time POC ABG pH 7.513 H POC ABG pCO2 22.1 L POC ABG pO2 64 L Sodium Potassium Chloride Carbon Dioxide BUN Creatinine Glucose POC Glucose 121 H Calcium Magnesium Direct Bilirubin AST ALT Alkaline Phosphatase Total Creatine Kinase CK-MB (CK-2) CK-MB (CK-2) Rel Index Troponin T C-Reactive Protein Total Protein Albumin Triglycerides 151 H Ur Specific [place] Urine WBC (Auto) Miscellaneous Test 04/01/17 04/02/17 04/02/17 18:17 00:11 04:52 WBC RBC Hgb Hct MCV MCH Plt Count Lymph % (Auto) [place] % (Auto) Eos % (Auto) Baso % (Auto) Lymph # Baso # Seg Neutrophils % Lymphocytes % (Manual) Monocytes % (Manual) Nucleated RBC % Seg Neutrophils # Seg Neutrophils # Man Monocytes # (Manual) PT INR Activated Clotting Time POC ABG pH 7.524 H POC ABG pCO2 25.5 L POC ABG pO2 66 L Sodium Potassium Chloride Carbon Dioxide BUN Creatinine Glucose POC Glucose 117 H 122 H Calcium Magnesium Direct Bilirubin AST ALT Alkaline Phosphatase Total Creatine Kinase CK-MB (CK-2) CK-MB (CK-2) Rel Index Troponin T C-Reactive Protein Total Protein Albumin Triglycerides Ur Specific [place] Urine WBC (Auto) Miscellaneous Test 04/02/17 04/02/17 04/02/17 05:18 10:41 12:19 WBC RBC Hgb Hct MCV MCH Plt Count Lymph % (Auto) [place] % (Auto) Eos % (Auto) Baso % (Auto) Lymph # Baso # Seg Neutrophils % Lymphocytes % (Manual) Monocytes % (Manual) Nucleated RBC % Seg Neutrophils # Seg Neutrophils # Man Monocytes # (Manual) PT INR Activated Clotting Time POC ABG pH 7.534 H POC ABG pCO2 27.4 L POC ABG pO2 Sodium Potassium Chloride Carbon Dioxide BUN Creatinine Glucose POC Glucose 132 H 129 H Calcium Magnesium Direct Bilirubin AST ALT Alkaline Phosphatase Total Creatine Kinase CK-MB (CK-2) CK-MB (CK-2) Rel Index Troponin T C-Reactive Protein Total Protein Albumin Triglycerides Ur Specific [place] Urine WBC (Auto) Miscellaneous Test 04/02/17 04/03/17 04/03/17 18:05 00:08 05:09 WBC RBC Hgb Hct MCV MCH Plt Count Lymph % (Auto) [place] % (Auto) Eos % (Auto) Baso % (Auto) Lymph # Baso # Seg Neutrophils % Lymphocytes % (Manual) Monocytes % (Manual) Nucleated RBC % Seg Neutrophils # Seg Neutrophils # Man Monocytes # (Manual) PT INR Activated Clotting Time POC ABG pH 7.455 H POC ABG pCO2 33.2 L POC ABG pO2 120 H Sodium Potassium Chloride Carbon Dioxide BUN Creatinine Glucose POC Glucose 136 H 128 H Calcium Magnesium Direct Bilirubin AST ALT Alkaline Phosphatase Total Creatine Kinase CK-MB (CK-2) CK-MB (CK-2) Rel Index Troponin T C-Reactive Protein Total Protein Albumin Triglycerides Ur Specific [place] Urine WBC (Auto) Miscellaneous Test 04/03/17 04/03/17 04/03/17 06:32 11:54 12:16 WBC 11.9 H RBC Hgb Hct MCV MCH Plt Count 125 L Lymph % (Auto) 4.8 L [place] % (Auto) Eos % (Auto) Baso % (Auto) Lymph # 0.6 L Baso # Seg Neutrophils % 86.7 H Lymphocytes % (Manual) Monocytes % (Manual) Nucleated RBC % Seg Neutrophils # 10.3 H Seg Neutrophils # Man Monocytes # (Manual) PT INR Activated Clotting Time POC ABG pH POC ABG pCO2 POC ABG pO2 Sodium Potassium Chloride Carbon Dioxide BUN Creatinine Glucose POC Glucose 138 H 143 H Calcium Magnesium Direct Bilirubin AST ALT Alkaline Phosphatase Total Creatine Kinase CK-MB (CK-2) CK-MB (CK-2) Rel Index Troponin T C-Reactive Protein Total Protein Albumin Triglycerides Ur Specific [place] Urine WBC (Auto) Miscellaneous Test 04/03/17 04/03/17 04/04/17 17:33 23:59 04:34 WBC RBC Hgb Hct MCV MCH Plt Count Lymph % (Auto) [place] % (Auto) Eos % (Auto) Baso % (Auto) Lymph # Baso # Seg Neutrophils % Lymphocytes % (Manual) Monocytes % (Manual) Nucleated RBC % Seg Neutrophils # Seg Neutrophils # Man Monocytes # (Manual) PT INR Activated Clotting Time POC ABG pH 7.457 H POC ABG pCO2 29.8 L POC ABG pO2 76 L Sodium Potassium Chloride Carbon Dioxide BUN Creatinine Glucose POC Glucose 130 H 155 H Calcium Magnesium Direct Bilirubin AST ALT Alkaline Phosphatase Total Creatine Kinase CK-MB (CK-2) CK-MB (CK-2) Rel Index Troponin T C-Reactive Protein Total Protein Albumin Triglycerides Ur Specific [place] Urine WBC (Auto) Miscellaneous Test 04/04/17 04/04/17 04/04/17 05:27 12:22 18:18 WBC RBC Hgb Hct MCV MCH Plt Count Lymph % (Auto) [place] % (Auto) Eos % (Auto) Baso % (Auto) Lymph # Baso # Seg Neutrophils % Lymphocytes % (Manual) Monocytes % (Manual) Nucleated RBC % Seg Neutrophils # Seg Neutrophils # Man Monocytes # (Manual) PT INR Activated Clotting Time POC ABG pH POC ABG pCO2 POC ABG pO2 Sodium Potassium Chloride Carbon Dioxide BUN Creatinine Glucose POC Glucose 164 H 146 H 130 H Calcium Magnesium Direct Bilirubin AST ALT Alkaline Phosphatase Total Creatine Kinase CK-MB (CK-2) CK-MB (CK-2) Rel Index Troponin T C-Reactive Protein Total Protein Albumin Triglycerides Ur Specific [place] Urine WBC (Auto) Miscellaneous Test 04/05/17 04/05/17 04/05/17 04:43 05:28 11:36 WBC RBC Hgb Hct MCV MCH Plt Count Lymph % (Auto) [place] % (Auto) Eos % (Auto) Baso % (Auto) Lymph # Baso # Seg Neutrophils % Lymphocytes % (Manual) Monocytes % (Manual) Nucleated RBC % Seg Neutrophils # Seg Neutrophils # Man Monocytes # (Manual) PT INR Activated Clotting Time POC ABG pH 7.479 H POC ABG pCO2 33.5 L POC ABG pO2 76 L Sodium Potassium Chloride Carbon Dioxide BUN Creatinine Glucose POC Glucose 145 H 136 H Calcium Magnesium Direct Bilirubin AST ALT Alkaline Phosphatase Total Creatine Kinase CK-MB (CK-2) CK-MB (CK-2) Rel Index Troponin T C-Reactive Protein Total Protein Albumin Triglycerides Ur Specific [place] Urine WBC (Auto) Miscellaneous Test 04/05/17 04/06/17 04/06/17 17:58 00:16 05:26 WBC RBC Hgb Hct MCV MCH Plt Count Lymph % (Auto) [place] % (Auto) Eos % (Auto) Baso % (Auto) Lymph # Baso # Seg Neutrophils % Lymphocytes % (Manual) Monocytes % (Manual) Nucleated RBC % Seg Neutrophils # Seg Neutrophils # Man Monocytes # (Manual) PT INR Activated Clotting Time POC ABG pH POC ABG pCO2 POC ABG pO2 Sodium Potassium Chloride Carbon Dioxide BUN Creatinine Glucose POC Glucose 130 H 159 H 146 H Calcium Magnesium Direct Bilirubin AST ALT Alkaline Phosphatase Total Creatine Kinase CK-MB (CK-2) CK-MB (CK-2) Rel Index Troponin T C-Reactive Protein Total Protein Albumin Triglycerides Ur Specific [place] Urine WBC (Auto) Miscellaneous Test 04/06/17 04/06/17 04/07/17 13:11 16:54 11:45 WBC RBC Hgb Hct MCV MCH Plt Count Lymph % (Auto) [place] % (Auto) Eos % (Auto) Baso % (Auto) Lymph # Baso # Seg Neutrophils % Lymphocytes % (Manual) Monocytes % (Manual) Nucleated RBC % Seg Neutrophils # Seg Neutrophils # Man Monocytes # (Manual) PT INR Activated Clotting Time POC ABG pH 7.517 H POC ABG pCO2 32.1 L POC ABG pO2 Sodium Potassium Chloride Carbon Dioxide BUN Creatinine Glucose POC Glucose 132 H 123 H Calcium Magnesium Direct Bilirubin AST ALT Alkaline Phosphatase Total Creatine Kinase CK-MB (CK-2) CK-MB (CK-2) Rel Index Troponin T C-Reactive Protein Total Protein Albumin Triglycerides Ur Specific [place] Urine WBC (Auto) Miscellaneous Test 04/07/17 04/07/17 04/07/17 12:51 17:40 23:55 WBC RBC Hgb Hct MCV MCH Plt Count Lymph % (Auto) [place] % (Auto) Eos % (Auto) Baso % (Auto) Lymph # Baso # Seg Neutrophils % Lymphocytes % (Manual) Monocytes % (Manual) Nucleated RBC % Seg Neutrophils # Seg Neutrophils # Man Monocytes # (Manual) PT INR Activated Clotting Time POC ABG pH POC ABG pCO2 POC ABG pO2 Sodium Potassium Chloride Carbon Dioxide BUN Creatinine Glucose POC Glucose 138 H 154 H 143 H Calcium Magnesium Direct Bilirubin AST ALT Alkaline Phosphatase Total Creatine Kinase CK-MB (CK-2) CK-MB (CK-2) Rel Index Troponin T C-Reactive Protein Total Protein Albumin Triglycerides Ur Specific [place] Urine WBC (Auto) Miscellaneous Test 04/08/17 04/08/17 04/08/17 05:27 11:14 17:44 WBC RBC Hgb Hct MCV MCH Plt Count Lymph % (Auto) [place] % (Auto) Eos % (Auto) Baso % (Auto) Lymph # Baso # Seg Neutrophils % Lymphocytes % (Manual) Monocytes % (Manual) Nucleated RBC % Seg Neutrophils # Seg Neutrophils # Man Monocytes # (Manual) PT INR Activated Clotting Time POC ABG pH POC ABG pCO2 POC ABG pO2 Sodium Potassium Chloride Carbon Dioxide BUN Creatinine Glucose POC Glucose 142 H 153 H 129 H Calcium Magnesium Direct Bilirubin AST ALT Alkaline Phosphatase Total Creatine Kinase CK-MB (CK-2) CK-MB (CK-2) Rel Index Troponin T C-Reactive Protein Total Protein Albumin Triglycerides Ur Specific [place] Urine WBC (Auto) Miscellaneous Test 04/09/17 04/09/17 04/09/17 08:20 11:21 17:37 WBC RBC Hgb Hct MCV MCH Plt Count Lymph % (Auto) [place] % (Auto) Eos % (Auto) Baso % (Auto) Lymph # Baso # Seg Neutrophils % Lymphocytes % (Manual) Monocytes % (Manual) Nucleated RBC % Seg Neutrophils # Seg Neutrophils # Man Monocytes # (Manual) PT INR Activated Clotting Time POC ABG pH POC ABG pCO2 POC ABG pO2 Sodium 147 H Potassium Chloride 108.8 H Carbon Dioxide BUN 39 H Creatinine 0.5 L Glucose 138 H POC Glucose 152 H 109 H Calcium Magnesium Direct Bilirubin AST ALT Alkaline Phosphatase Total Creatine Kinase CK-MB (CK-2) CK-MB (CK-2) Rel Index Troponin T C-Reactive Protein Total Protein Albumin Triglycerides Ur Specific [place] Urine WBC (Auto) Miscellaneous Test 04/10/17 04/10/17 04/10/17 00:13 04:16 04:16 WBC RBC Hgb 11.5 L Hct MCV 96 H MCH Plt Count 103 L Lymph % (Auto) 11.1 L [place] % (Auto) Eos % (Auto) Baso % (Auto) Lymph # Baso # Seg Neutrophils % 81.5 H Lymphocytes % (Manual) Monocytes % (Manual) Nucleated RBC % Seg Neutrophils # 8.8 H Seg Neutrophils # Man Monocytes # (Manual) PT INR Activated Clotting Time POC ABG pH POC ABG pCO2 POC ABG pO2 Sodium 148 H Potassium Chloride 109.0 H Carbon Dioxide BUN 36 H Creatinine 0.5 L Glucose 131 H POC Glucose 127 H Calcium 8.1 L Magnesium 2.40 H Direct Bilirubin AST 206 H ALT 228 H Alkaline Phosphatase 178 H Total Creatine Kinase CK-MB (CK-2) CK-MB (CK-2) Rel Index Troponin T C-Reactive Protein Total Protein Albumin 2.8 L Triglycerides Ur Specific [place] Urine WBC (Auto) Miscellaneous Test 04/10/17 04/10/17 04/10/17 06:01 11:57 18:27 WBC RBC Hgb Hct MCV MCH Plt Count Lymph % (Auto) [place] % (Auto) Eos % (Auto) Baso % (Auto) Lymph # Baso # Seg Neutrophils % Lymphocytes % (Manual) Monocytes % (Manual) Nucleated RBC % Seg Neutrophils # Seg Neutrophils # Man Monocytes # (Manual) PT INR Activated Clotting Time POC ABG pH POC ABG pCO2 POC ABG pO2 Sodium Potassium Chloride Carbon Dioxide BUN Creatinine Glucose POC Glucose 108 H 154 H 130 H Calcium Magnesium Direct Bilirubin AST ALT Alkaline Phosphatase Total Creatine Kinase CK-MB (CK-2) CK-MB (CK-2) Rel Index Troponin T C-Reactive Protein Total Protein Albumin Triglycerides Ur Specific [place] Urine WBC (Auto) Miscellaneous Test 04/11/17 04/11/17 04/12/17 12:25 17:10 00:22 WBC RBC Hgb Hct MCV MCH Plt Count Lymph % (Auto) [place] % (Auto) Eos % (Auto) Baso % (Auto) Lymph # Baso # Seg Neutrophils % Lymphocytes % (Manual) Monocytes % (Manual) Nucleated RBC % Seg Neutrophils # Seg Neutrophils # Man Monocytes # (Manual) PT INR Activated Clotting Time POC ABG pH POC ABG pCO2 POC ABG pO2 Sodium Potassium Chloride Carbon Dioxide BUN Creatinine Glucose POC Glucose 107 H 129 H 128 H Calcium Magnesium Direct Bilirubin AST ALT Alkaline Phosphatase Total Creatine Kinase CK-MB (CK-2) CK-MB (CK-2) Rel Index Troponin T C-Reactive Protein Total Protein Albumin Triglycerides Ur Specific [place] Urine WBC (Auto) Miscellaneous Test 04/12/17 04/12/17 04/12/17 05:00 11:57 17:47 WBC RBC Hgb Hct MCV MCH Plt Count Lymph % (Auto) [place] % (Auto) Eos % (Auto) Baso % (Auto) Lymph # Baso # Seg Neutrophils % Lymphocytes % (Manual) Monocytes % (Manual) Nucleated RBC % Seg Neutrophils # Seg Neutrophils # Man Monocytes # (Manual) PT INR Activated Clotting Time POC ABG pH POC ABG pCO2 POC ABG pO2 Sodium Potassium Chloride Carbon Dioxide BUN Creatinine Glucose POC Glucose 140 H 142 H Calcium Magnesium Direct Bilirubin AST 158 H ALT 184 H Alkaline Phosphatase 170 H Total Creatine Kinase CK-MB (CK-2) CK-MB (CK-2) Rel Index Troponin T C-Reactive Protein Total Protein Albumin 2.8 L Triglycerides Ur Specific [place] Urine WBC (Auto) Miscellaneous Test 04/12/17 04/12/17 04/13/17 21:36 21:36 01:37 WBC RBC Hgb Hct MCV MCH Plt Count Lymph % (Auto) [place] % (Auto) Eos % (Auto) Baso % (Auto) Lymph # Baso # Seg Neutrophils % Lymphocytes % (Manual) Monocytes % (Manual) Nucleated RBC % Seg Neutrophils # Seg Neutrophils # Man Monocytes # (Manual) PT INR Activated Clotting Time POC ABG pH POC ABG pCO2 POC ABG pO2 Sodium Potassium Chloride Carbon Dioxide BUN Creatinine Glucose POC Glucose 126 H Calcium Magnesium Direct Bilirubin AST ALT Alkaline Phosphatase Total Creatine Kinase 1404 H CK-MB (CK-2) 8.0 H CK-MB (CK-2) Rel Index Troponin T 0.767 H* C-Reactive Protein Total Protein Albumin Triglycerides Ur Specific [place] Urine WBC (Auto) Miscellaneous Test 04/13/17 04/13/17 04/13/17 04:45 04:52 12:17 WBC RBC Hgb Hct MCV MCH Plt Count Lymph % (Auto) [place] % (Auto) Eos % (Auto) Baso % (Auto) Lymph # Baso # Seg Neutrophils % Lymphocytes % (Manual) Monocytes % (Manual) Nucleated RBC % Seg Neutrophils # Seg Neutrophils # Man Monocytes # (Manual) PT INR Activated Clotting Time POC ABG pH POC ABG pCO2 POC ABG pO2 Sodium 148 H Potassium Chloride 112.8 H Carbon Dioxide BUN 33 H Creatinine 0.4 L Glucose 121 H POC Glucose 126 H 149 H Calcium Magnesium Direct Bilirubin AST 160 H ALT 189 H Alkaline Phosphatase 166 H Total Creatine Kinase CK-MB (CK-2) CK-MB (CK-2) Rel Index Troponin T C-Reactive Protein Total Protein Albumin 2.6 L Triglycerides Ur Specific [place] Urine WBC (Auto) Miscellaneous Test 04/13/17 04/14/17 04/14/17 17:45 00:20 00:45 WBC RBC Hgb Hct MCV MCH Plt Count Lymph % (Auto) [place] % (Auto) Eos % (Auto) Baso % (Auto) Lymph # Baso # Seg Neutrophils % Lymphocytes % (Manual) Monocytes % (Manual) Nucleated RBC % Seg Neutrophils # Seg Neutrophils # Man Monocytes # (Manual) PT INR Activated Clotting Time POC ABG pH POC ABG pCO2 POC ABG pO2 Sodium Potassium Chloride Carbon Dioxide BUN Creatinine Glucose POC Glucose 130 H 144 H 144 H Calcium Magnesium Direct Bilirubin AST ALT Alkaline Phosphatase Total Creatine Kinase CK-MB (CK-2) CK-MB (CK-2) Rel Index Troponin T C-Reactive Protein Total Protein Albumin Triglycerides Ur Specific [place] Urine WBC (Auto) Miscellaneous Test 04/14/17 04/14/17 04/14/17 05:40 11:06 11:31 WBC RBC Hgb Hct MCV MCH Plt Count Lymph % (Auto) [place] % (Auto) Eos % (Auto) Baso % (Auto) Lymph # Baso # Seg Neutrophils % Lymphocytes % (Manual) Monocytes % (Manual) Nucleated RBC % Seg Neutrophils # Seg Neutrophils # Man Monocytes # (Manual) PT INR Activated Clotting Time POC ABG pH POC ABG pCO2 POC ABG pO2 Sodium Potassium Chloride Carbon Dioxide BUN Creatinine Glucose POC Glucose 139 H 123 H Calcium Magnesium Direct Bilirubin AST ALT Alkaline Phosphatase Total Creatine Kinase CK-MB (CK-2) CK-MB (CK-2) Rel Index Troponin T C-Reactive Protein Total Protein Albumin Triglycerides Ur Specific [place] 1.033 H Urine WBC (Auto) > 182.0 H Miscellaneous Test 04/14/17 04/14/17 04/15/17 18:00 23:52 05:15 WBC 12.5 H RBC 3.38 L Hgb 10.6 L Hct 32.7 L MCV 97 H MCH Plt Count 107 L Lymph % (Auto) 8.7 L [place] % (Auto) Eos % (Auto) Baso % (Auto) Lymph # 1.1 L Baso # Seg Neutrophils % 86.1 H Lymphocytes % (Manual) Monocytes % (Manual) Nucleated RBC % Seg Neutrophils # 10.7 H Seg Neutrophils # Man Monocytes # (Manual) PT INR Activated Clotting Time POC ABG pH POC ABG pCO2 POC ABG pO2 Sodium Potassium Chloride Carbon Dioxide BUN Creatinine Glucose POC Glucose 133 H 133 H Calcium Magnesium Direct Bilirubin AST ALT Alkaline Phosphatase Total Creatine Kinase CK-MB (CK-2) CK-MB (CK-2) Rel Index Troponin T C-Reactive Protein Total Protein Albumin Triglycerides Ur Specific [place] Urine WBC (Auto) Miscellaneous Test 04/15/17 04/15/17 04/15/17 05:15 05:25 11:50 WBC RBC Hgb Hct MCV MCH Plt Count Lymph % (Auto) [place] % (Auto) Eos % (Auto) Baso % (Auto) Lymph # Baso # Seg Neutrophils % Lymphocytes % (Manual) Monocytes % (Manual) Nucleated RBC % Seg Neutrophils # Seg Neutrophils # Man Monocytes # (Manual) PT INR Activated Clotting Time POC ABG pH POC ABG pCO2 POC ABG pO2 Sodium 149 H Potassium 3.5 L Chloride 114.1 H Carbon Dioxide 21 L BUN 29 H Creatinine 0.4 L Glucose 128 H POC Glucose 133 H 107 H Calcium 8.3 L Magnesium Direct Bilirubin 0.4 H AST 149 H ALT 182 H Alkaline Phosphatase 143 H Total Creatine Kinase CK-MB (CK-2) CK-MB (CK-2) Rel Index Troponin T C-Reactive Protein Total Protein Albumin 2.5 L Triglycerides Ur Specific [place] Urine WBC (Auto) Miscellaneous Test 04/15/17 04/16/17 04/16/17 16:55 00:02 03:17 WBC RBC 3.39 L Hgb 10.5 L Hct 32.4 L MCV 96 H MCH Plt Count 106 L Lymph % (Auto) 6.7 L [place] % (Auto) Eos % (Auto) Baso % (Auto) Lymph # 0.6 L Baso # Seg Neutrophils % 86.8 H Lymphocytes % (Manual) Monocytes % (Manual) Nucleated RBC % Seg Neutrophils # 8.2 H Seg Neutrophils # Man Monocytes # (Manual) PT INR Activated Clotting Time POC ABG pH POC ABG pCO2 POC ABG pO2 Sodium Potassium Chloride Carbon Dioxide BUN Creatinine Glucose POC Glucose 146 H 148 H Calcium Magnesium Direct Bilirubin AST ALT Alkaline Phosphatase Total Creatine Kinase CK-MB (CK-2) CK-MB (CK-2) Rel Index Troponin T C-Reactive Protein Total Protein Albumin Triglycerides Ur Specific [place] Urine WBC (Auto) Miscellaneous Test 04/16/17 04/16/17 04/16/17 03:17 05:19 11:13 WBC RBC Hgb Hct MCV MCH Plt Count Lymph % (Auto) [place] % (Auto) Eos % (Auto) Baso % (Auto) Lymph # Baso # Seg Neutrophils % Lymphocytes % (Manual) Monocytes % (Manual) Nucleated RBC % Seg Neutrophils # Seg Neutrophils # Man Monocytes # (Manual) PT INR Activated Clotting Time POC ABG pH POC ABG pCO2 POC ABG pO2 Sodium 149 H Potassium Chloride 111.1 H Carbon Dioxide 20 L BUN 27 H Creatinine 0.3 L Glucose 156 H POC Glucose 171 H 169 H Calcium 8.3 L Magnesium Direct Bilirubin AST ALT Alkaline Phosphatase Total Creatine Kinase CK-MB (CK-2) CK-MB (CK-2) Rel Index Troponin T C-Reactive Protein Total Protein Albumin Triglycerides Ur Specific [place] Urine WBC (Auto) Miscellaneous Test 04/16/17 04/17/17 04/17/17 17:03 00:00 05:09 WBC RBC Hgb Hct MCV MCH Plt Count Lymph % (Auto) [place] % (Auto) Eos % (Auto) Baso % (Auto) Lymph # Baso # Seg Neutrophils % Lymphocytes % (Manual) Monocytes % (Manual) Nucleated RBC % Seg Neutrophils # Seg Neutrophils # Man Monocytes # (Manual) PT INR Activated Clotting Time POC ABG pH POC ABG pCO2 POC ABG pO2 Sodium Potassium Chloride Carbon Dioxide BUN Creatinine Glucose POC Glucose 151 H 165 H 145 H Calcium Magnesium Direct Bilirubin AST ALT Alkaline Phosphatase Total Creatine Kinase CK-MB (CK-2) CK-MB (CK-2) Rel Index Troponin T C-Reactive Protein Total Protein Albumin Triglycerides Ur Specific [place] Urine WBC (Auto) Miscellaneous Test 04/17/17 04/17/17 04/18/17 11:38 17:47 00:01 WBC RBC Hgb Hct MCV MCH Plt Count Lymph % (Auto) [place] % (Auto) Eos % (Auto) Baso % (Auto) Lymph # Baso # Seg Neutrophils % Lymphocytes % (Manual) Monocytes % (Manual) Nucleated RBC % Seg Neutrophils # Seg Neutrophils # Man Monocytes # (Manual) PT INR Activated Clotting Time POC ABG pH POC ABG pCO2 POC ABG pO2 Sodium Potassium Chloride Carbon Dioxide BUN Creatinine Glucose POC Glucose 170 H 161 H 131 H Calcium Magnesium Direct Bilirubin AST ALT Alkaline Phosphatase Total Creatine Kinase CK-MB (CK-2) CK-MB (CK-2) Rel Index Troponin T C-Reactive Protein Total Protein Albumin Triglycerides Ur Specific [place] Urine WBC (Auto) Miscellaneous Test 04/18/17 04/18/17 04/18/17 03:55 03:55 05:30 WBC RBC 3.05 L Hgb 9.8 L Hct 29.0 L MCV 95 H MCH Plt Count 113 L Lymph % (Auto) [place] % (Auto) Eos % (Auto) 5.3 H Baso % (Auto) Lymph # Baso # Seg Neutrophils % 71.5 H Lymphocytes % (Manual) Monocytes % (Manual) Nucleated RBC % Seg Neutrophils # Seg Neutrophils # Man Monocytes # (Manual) PT INR Activated Clotting Time POC ABG pH 7.460 H POC ABG pCO2 30.8 L POC ABG pO2 129 H Sodium Potassium Chloride Carbon Dioxide 21 L BUN 25 H Creatinine 0.4 L Glucose 123 H POC Glucose Calcium 8.3 L Magnesium Direct Bilirubin AST ALT Alkaline Phosphatase Total Creatine Kinase CK-MB (CK-2) CK-MB (CK-2) Rel Index Troponin T C-Reactive Protein Total Protein Albumin Triglycerides Ur Specific [place] Urine WBC (Auto) Miscellaneous Test 04/18/17 04/18/17 04/19/17 17:10 23:40 04:36 WBC RBC 3.21 L Hgb 10.2 L Hct 30.4 L MCV 95 H MCH Plt Count 131 L Lymph % (Auto) 12.1 L [place] % (Auto) Eos % (Auto) 4.7 H Baso % (Auto) 2.4 H Lymph # 0.9 L Baso # 0.2 H Seg Neutrophils % 75.0 H Lymphocytes % (Manual) Monocytes % (Manual) Nucleated RBC % Seg Neutrophils # Seg Neutrophils # Man Monocytes # (Manual) PT INR Activated Clotting Time POC ABG pH POC ABG pCO2 POC ABG pO2 Sodium Potassium Chloride Carbon Dioxide BUN Creatinine Glucose POC Glucose 135 H 157 H Calcium Magnesium Direct Bilirubin AST ALT Alkaline Phosphatase Total Creatine Kinase CK-MB (CK-2) CK-MB (CK-2) Rel Index Troponin T C-Reactive Protein Total Protein Albumin Triglycerides Ur Specific [place] Urine WBC (Auto) Miscellaneous Test 04/19/17 04/19/17 04/19/17 04:36 05:12 06:50 WBC RBC Hgb Hct MCV MCH Plt Count Lymph % (Auto) [place] % (Auto) Eos % (Auto) Baso % (Auto) Lymph # Baso # Seg Neutrophils % Lymphocytes % (Manual) Monocytes % (Manual) Nucleated RBC % Seg Neutrophils # Seg Neutrophils # Man Monocytes # (Manual) PT INR Activated Clotting Time POC ABG pH 7.516 H POC ABG pCO2 28.0 L POC ABG pO2 Sodium Potassium Chloride Carbon Dioxide 21 L BUN 23 H Creatinine 0.2 L Glucose 137 H POC Glucose 131 H Calcium 7.9 L Magnesium Direct Bilirubin AST ALT Alkaline Phosphatase Total Creatine Kinase CK-MB (CK-2) CK-MB (CK-2) Rel Index Troponin T C-Reactive Protein Total Protein Albumin Triglycerides Ur Specific [place] Urine WBC (Auto) Miscellaneous Test 04/19/17 04/19/17 04/20/17 12:36 17:42 00:12 WBC RBC Hgb Hct MCV MCH Plt Count Lymph % (Auto) [place] % (Auto) Eos % (Auto) Baso % (Auto) Lymph # Baso # Seg Neutrophils % Lymphocytes % (Manual) Monocytes % (Manual) Nucleated RBC % Seg Neutrophils # Seg Neutrophils # Man Monocytes # (Manual) PT INR Activated Clotting Time POC ABG pH POC ABG pCO2 POC ABG pO2 Sodium Potassium Chloride Carbon Dioxide BUN Creatinine Glucose POC Glucose 128 H 140 H 132 H Calcium Magnesium Direct Bilirubin AST ALT Alkaline Phosphatase Total Creatine Kinase CK-MB (CK-2) CK-MB (CK-2) Rel Index Troponin T C-Reactive Protein Total Protein Albumin Triglycerides Ur Specific [place] Urine WBC (Auto) Miscellaneous Test 04/20/17 04/20/17 04/20/17 03:35 03:35 05:10 WBC RBC 3.34 L Hgb 10.4 L Hct 31.6 L MCV 95 H MCH Plt Count Lymph % (Auto) 12.9 L [place] % (Auto) Eos % (Auto) Baso % (Auto) Lymph # Baso # Seg Neutrophils % 77.3 H Lymphocytes % (Manual) Monocytes % (Manual) Nucleated RBC % Seg Neutrophils # Seg Neutrophils # Man Monocytes # (Manual) PT INR Activated Clotting Time POC ABG pH POC ABG pCO2 POC ABG pO2 Sodium Potassium Chloride Carbon Dioxide BUN Creatinine 0.3 L Glucose 155 H POC Glucose 135 H Calcium 7.8 L Magnesium Direct Bilirubin AST ALT Alkaline Phosphatase Total Creatine Kinase CK-MB (CK-2) CK-MB (CK-2) Rel Index Troponin T C-Reactive Protein Total Protein Albumin Triglycerides Ur Specific [place] Urine WBC (Auto) Miscellaneous Test 04/20/17 04/20/17 04/21/17 12:49 18:21 00:05 WBC RBC Hgb Hct MCV MCH Plt Count Lymph % (Auto) [place] % (Auto) Eos % (Auto) Baso % (Auto) Lymph # Baso # Seg Neutrophils % Lymphocytes % (Manual) Monocytes % (Manual) Nucleated RBC % Seg Neutrophils # Seg Neutrophils # Man Monocytes # (Manual) PT INR Activated Clotting Time POC ABG pH POC ABG pCO2 POC ABG pO2 Sodium Potassium Chloride Carbon Dioxide BUN Creatinine Glucose POC Glucose 155 H 165 H 141 H Calcium Magnesium Direct Bilirubin AST ALT Alkaline Phosphatase Total Creatine Kinase CK-MB (CK-2) CK-MB (CK-2) Rel Index Troponin T C-Reactive Protein Total Protein Albumin Triglycerides Ur Specific [place] Urine WBC (Auto) Miscellaneous Test 04/21/17 04/21/17 04/21/17 06:00 12:11 17:04 WBC RBC Hgb Hct MCV MCH Plt Count Lymph % (Auto) [place] % (Auto) Eos % (Auto) Baso % (Auto) Lymph # Baso # Seg Neutrophils % Lymphocytes % (Manual) Monocytes % (Manual) Nucleated RBC % Seg Neutrophils # Seg Neutrophils # Man Monocytes # (Manual) PT INR Activated Clotting Time POC ABG pH POC ABG pCO2 POC ABG pO2 Sodium Potassium Chloride Carbon Dioxide BUN Creatinine Glucose POC Glucose 152 H 165 H 156 H Calcium Magnesium Direct Bilirubin AST ALT Alkaline Phosphatase Total Creatine Kinase CK-MB (CK-2) CK-MB (CK-2) Rel Index Troponin T C-Reactive Protein Total Protein Albumin Triglycerides Ur Specific [place] Urine WBC (Auto) Miscellaneous Test 04/21/17 04/21/17 04/22/17 22:00 23:59 05:49 WBC RBC Hgb Hct MCV MCH Plt Count Lymph % (Auto) [place] % (Auto) Eos % (Auto) Baso % (Auto) Lymph # Baso # Seg Neutrophils % Lymphocytes % (Manual) Monocytes % (Manual) Nucleated RBC % Seg Neutrophils # Seg Neutrophils # Man Monocytes # (Manual) PT INR Activated Clotting Time POC ABG pH POC ABG pCO2 POC ABG pO2 Sodium Potassium Chloride Carbon Dioxide BUN Creatinine Glucose POC Glucose 166 H 173 H Calcium Magnesium Direct Bilirubin AST ALT Alkaline Phosphatase Total Creatine Kinase CK-MB (CK-2) CK-MB (CK-2) Rel Index Troponin T C-Reactive Protein Total Protein Albumin Triglycerides Ur Specific [place] Urine WBC (Auto) 10.0 H Miscellaneous Test 04/22/17 04/22/17 04/23/17 11:11 18:04 00:37 WBC RBC Hgb Hct MCV MCH Plt Count Lymph % (Auto) [place] % (Auto) Eos % (Auto) Baso % (Auto) Lymph # Baso # Seg Neutrophils % Lymphocytes % (Manual) Monocytes % (Manual) Nucleated RBC % Seg Neutrophils # Seg Neutrophils # Man Monocytes # (Manual) PT INR Activated Clotting Time POC ABG pH POC ABG pCO2 POC ABG pO2 Sodium Potassium Chloride Carbon Dioxide BUN Creatinine Glucose POC Glucose 172 H 140 H 135 H Calcium Magnesium Direct Bilirubin AST ALT Alkaline Phosphatase Total Creatine Kinase CK-MB (CK-2) CK-MB (CK-2) Rel Index Troponin T C-Reactive Protein Total Protein Albumin Triglycerides Ur Specific [place] Urine WBC (Auto) Miscellaneous Test 04/23/17 04/23/17 04/23/17 05:33 06:20 11:10 WBC RBC 3.19 L Hgb 9.9 L Hct 30.0 L MCV MCH Plt Count Lymph % (Auto) 8.0 L [place] % (Auto) Eos % (Auto) Baso % (Auto) Lymph # 0.8 L Baso # Seg Neutrophils % 84.5 H Lymphocytes % (Manual) Monocytes % (Manual) Nucleated RBC % Seg Neutrophils # 8.2 H Seg Neutrophils # Man Monocytes # (Manual) PT INR Activated Clotting Time POC ABG pH POC ABG pCO2 POC ABG pO2 Sodium Potassium Chloride Carbon Dioxide BUN Creatinine Glucose POC Glucose 134 H 134 H Calcium Magnesium Direct Bilirubin AST ALT Alkaline Phosphatase Total Creatine Kinase CK-MB (CK-2) CK-MB (CK-2) Rel Index Troponin T C-Reactive Protein Total Protein Albumin Triglycerides Ur Specific [place] Urine WBC (Auto) Miscellaneous Test 04/23/17 04/24/17 04/24/17 17:26 00:53 06:46 WBC RBC Hgb Hct MCV MCH Plt Count Lymph % (Auto) [place] % (Auto) Eos % (Auto) Baso % (Auto) Lymph # Baso # Seg Neutrophils % Lymphocytes % (Manual) Monocytes % (Manual) Nucleated RBC % Seg Neutrophils # Seg Neutrophils # Man Monocytes # (Manual) PT INR Activated Clotting Time POC ABG pH POC ABG pCO2 POC ABG pO2 Sodium Potassium Chloride Carbon Dioxide BUN Creatinine Glucose POC Glucose 164 H 146 H 125 H Calcium Magnesium Direct Bilirubin AST ALT Alkaline Phosphatase Total Creatine Kinase CK-MB (CK-2) CK-MB (CK-2) Rel Index Troponin T C-Reactive Protein Total Protein Albumin Triglycerides Ur Specific [place] Urine WBC (Auto) Miscellaneous Test 04/24/17 04/24/17 04/24/17 11:55 17:50 23:36 WBC RBC Hgb Hct MCV MCH Plt Count Lymph % (Auto) [place] % (Auto) Eos % (Auto) Baso % (Auto) Lymph # Baso # Seg Neutrophils % Lymphocytes % (Manual) Monocytes % (Manual) Nucleated RBC % Seg Neutrophils # Seg Neutrophils # Man Monocytes # (Manual) PT INR Activated Clotting Time POC ABG pH POC ABG pCO2 POC ABG pO2 Sodium Potassium Chloride Carbon Dioxide BUN Creatinine Glucose POC Glucose 156 H 146 H 131 H Calcium Magnesium Direct Bilirubin AST ALT Alkaline Phosphatase Total Creatine Kinase CK-MB (CK-2) CK-MB (CK-2) Rel Index Troponin T C-Reactive Protein Total Protein Albumin Triglycerides Ur Specific [place] Urine WBC (Auto) Miscellaneous Test 04/25/17 04/25/17 04/25/17 04:51 05:16 07:07 WBC RBC Hgb Hct MCV MCH Plt Count Lymph % (Auto) [place] % (Auto) Eos % (Auto) Baso % (Auto) Lymph # Baso # Seg Neutrophils % Lymphocytes % (Manual) Monocytes % (Manual) Nucleated RBC % Seg Neutrophils # Seg Neutrophils # Man Monocytes # (Manual) PT INR Activated Clotting Time POC ABG pH POC ABG pCO2 POC ABG pO2 Sodium Potassium Chloride Carbon Dioxide BUN Creatinine Glucose POC Glucose 139 H Calcium Magnesium Direct Bilirubin AST 105 H ALT 204 H Alkaline Phosphatase 189 H Total Creatine Kinase CK-MB (CK-2) CK-MB (CK-2) Rel Index Troponin T C-Reactive Protein Total Protein Albumin 2.4 L Triglycerides Ur Specific [place] Urine WBC (Auto) Miscellaneous Test Flexitest 1 H 04/25/17 04/25/17 04/25/17 12:29 17:23 23:32 WBC RBC Hgb Hct MCV MCH Plt Count Lymph % (Auto) [place] % (Auto) Eos % (Auto) Baso % (Auto) Lymph # Baso # Seg Neutrophils % Lymphocytes % (Manual) Monocytes % (Manual) Nucleated RBC % Seg Neutrophils # Seg Neutrophils # Man Monocytes # (Manual) PT INR Activated Clotting Time POC ABG pH POC ABG pCO2 POC ABG pO2 Sodium Potassium Chloride Carbon Dioxide BUN Creatinine Glucose POC Glucose 132 H 133 H 128 H Calcium Magnesium Direct Bilirubin AST ALT Alkaline Phosphatase Total Creatine Kinase CK-MB (CK-2) CK-MB (CK-2) Rel Index Troponin T C-Reactive Protein Total Protein Albumin Triglycerides Ur Specific [place] Urine WBC (Auto) Miscellaneous Test 04/26/17 04/26/17 04/26/17 05:24 11:28 17:09 WBC RBC Hgb Hct MCV MCH Plt Count Lymph % (Auto) [place] % (Auto) Eos % (Auto) Baso % (Auto) Lymph # Baso # Seg Neutrophils % Lymphocytes % (Manual) Monocytes % (Manual) Nucleated RBC % Seg Neutrophils # Seg Neutrophils # Man Monocytes # (Manual) PT INR Activated Clotting Time POC ABG pH POC ABG pCO2 POC ABG pO2 Sodium Potassium Chloride Carbon Dioxide BUN Creatinine Glucose POC Glucose 132 H 146 H 141 H Calcium Magnesium Direct Bilirubin AST ALT Alkaline Phosphatase Total Creatine Kinase CK-MB (CK-2) CK-MB (CK-2) Rel Index Troponin T C-Reactive Protein Total Protein Albumin Triglycerides Ur Specific [place] Urine WBC (Auto) Miscellaneous Test 04/26/17 04/27/17 04/27/17 23:52 05:40 05:40 WBC RBC 3.22 L Hgb 10.0 L Hct 29.9 L MCV MCH Plt Count Lymph % (Auto) [place] % (Auto) Eos % (Auto) Baso % (Auto) Lymph # Baso # Seg Neutrophils % 76.6 H Lymphocytes % (Manual) Monocytes % (Manual) Nucleated RBC % Seg Neutrophils # Seg Neutrophils # Man Monocytes # (Manual) PT INR Activated Clotting Time POC ABG pH POC ABG pCO2 POC ABG pO2 Sodium Potassium Chloride Carbon Dioxide BUN Creatinine Glucose POC Glucose 140 H Calcium Magnesium Direct Bilirubin AST 66 H ALT 137 H Alkaline Phosphatase 169 H Total Creatine Kinase CK-MB (CK-2) CK-MB (CK-2) Rel Index Troponin T C-Reactive Protein Total Protein 6.2 L Albumin 2.6 L Triglycerides Ur Specific [place] Urine WBC (Auto) Miscellaneous Test 04/27/17 04/27/17 04/27/17 05:40 06:10 11:13 WBC RBC Hgb Hct MCV MCH Plt Count Lymph % (Auto) [place] % (Auto) Eos % (Auto) Baso % (Auto) Lymph # Baso # Seg Neutrophils % Lymphocytes % (Manual) Monocytes % (Manual) Nucleated RBC % Seg Neutrophils # Seg Neutrophils # Man Monocytes # (Manual) PT INR Activated Clotting Time POC ABG pH POC ABG pCO2 POC ABG pO2 Sodium Potassium Chloride Carbon Dioxide BUN Creatinine 0.2 L Glucose 139 H POC Glucose 130 H 151 H Calcium Magnesium Direct Bilirubin AST ALT Alkaline Phosphatase Total Creatine Kinase CK-MB (CK-2) CK-MB (CK-2) Rel Index Troponin T C-Reactive Protein Total Protein Albumin Triglycerides Ur Specific [place] Urine WBC (Auto) Miscellaneous Test 04/27/17 04/27/17 04/28/17 17:37 23:19 05:24 WBC RBC Hgb Hct MCV MCH Plt Count Lymph % (Auto) [place] % (Auto) Eos % (Auto) Baso % (Auto) Lymph # Baso # Seg Neutrophils % Lymphocytes % (Manual) Monocytes % (Manual) Nucleated RBC % Seg Neutrophils # Seg Neutrophils # Man Monocytes # (Manual) PT INR Activated Clotting Time POC ABG pH POC ABG pCO2 POC ABG pO2 Sodium Potassium Chloride Carbon Dioxide BUN Creatinine Glucose POC Glucose 159 H 130 H 132 H Calcium Magnesium Direct Bilirubin AST ALT Alkaline Phosphatase Total Creatine Kinase CK-MB (CK-2) CK-MB (CK-2) Rel Index Troponin T C-Reactive Protein Total Protein Albumin Triglycerides Ur Specific [place] Urine WBC (Auto) Miscellaneous Test 04/28/17 04/28/17 04/28/17 11:15 17:38 23:23 WBC RBC Hgb Hct MCV MCH Plt Count Lymph % (Auto) [place] % (Auto) Eos % (Auto) Baso % (Auto) Lymph # Baso # Seg Neutrophils % Lymphocytes % (Manual) Monocytes % (Manual) Nucleated RBC % Seg Neutrophils # Seg Neutrophils # Man Monocytes # (Manual) PT INR Activated Clotting Time POC ABG pH POC ABG pCO2 POC ABG pO2 Sodium Potassium Chloride Carbon Dioxide BUN Creatinine Glucose POC Glucose 162 H 133 H 138 H Calcium Magnesium Direct Bilirubin AST ALT Alkaline Phosphatase Total Creatine Kinase CK-MB (CK-2) CK-MB (CK-2) Rel Index Troponin T C-Reactive Protein Total Protein Albumin Triglycerides Ur Specific [place] Urine WBC (Auto) Miscellaneous Test 04/29/17 04/29/17 04/29/17 05:15 12:55 17:21 WBC RBC Hgb Hct MCV MCH Plt Count Lymph % (Auto) [place] % (Auto) Eos % (Auto) Baso % (Auto) Lymph # Baso # Seg Neutrophils % Lymphocytes % (Manual) Monocytes % (Manual) Nucleated RBC % Seg Neutrophils # Seg Neutrophils # Man Monocytes # (Manual) PT INR Activated Clotting Time POC ABG pH POC ABG pCO2 POC ABG pO2 Sodium Potassium Chloride Carbon Dioxide BUN Creatinine Glucose POC Glucose 135 H 127 H 138 H Calcium Magnesium Direct Bilirubin AST ALT Alkaline Phosphatase Total Creatine Kinase CK-MB (CK-2) CK-MB (CK-2) Rel Index Troponin T C-Reactive Protein Total Protein Albumin Triglycerides Ur Specific [place] Urine WBC (Auto) Miscellaneous Test 04/29/17 04/30/17 04/30/17 23:52 04:55 12:22 WBC RBC Hgb Hct MCV MCH Plt Count Lymph % (Auto) [place] % (Auto) Eos % (Auto) Baso % (Auto) Lymph # Baso # Seg Neutrophils % Lymphocytes % (Manual) Monocytes % (Manual) Nucleated RBC % Seg Neutrophils # Seg Neutrophils # Man Monocytes # (Manual) PT INR Activated Clotting Time POC ABG pH POC ABG pCO2 POC ABG pO2 Sodium Potassium Chloride Carbon Dioxide BUN Creatinine Glucose POC Glucose 142 H 146 H 132 H Calcium Magnesium Direct Bilirubin AST ALT Alkaline Phosphatase Total Creatine Kinase CK-MB (CK-2) CK-MB (CK-2) Rel Index Troponin T C-Reactive Protein Total Protein Albumin Triglycerides Ur Specific [place] Urine WBC (Auto) Miscellaneous Test 04/30/17 04/30/17 04/30/17 14:25 17:47 18:20 WBC RBC Hgb Hct MCV MCH Plt Count Lymph % (Auto) [place] % (Auto) Eos % (Auto) Baso % (Auto) Lymph # Baso # Seg Neutrophils % Lymphocytes % (Manual) Monocytes % (Manual) Nucleated RBC % Seg Neutrophils # Seg Neutrophils # Man Monocytes # (Manual) PT INR Activated Clotting Time POC ABG pH 7.551 H POC ABG pCO2 32.7 L POC ABG pO2 Sodium Potassium Chloride Carbon Dioxide BUN 21 H Creatinine 0.2 L Glucose 141 H POC Glucose 139 H Calcium Magnesium Direct Bilirubin AST ALT Alkaline Phosphatase Total Creatine Kinase CK-MB (CK-2) CK-MB (CK-2) Rel Index Troponin T C-Reactive Protein Total Protein Albumin Triglycerides Ur Specific [place] Urine WBC (Auto) Miscellaneous Test 05/01/17 05/01/17 05/01/17 01:26 05:30 05:30 WBC RBC 3.49 L Hgb 10.3 L Hct 31.9 L MCV MCH Plt Count Lymph % (Auto) [place] % (Auto) 8.1 H Eos % (Auto) Baso % (Auto) Lymph # Baso # Seg Neutrophils % 71.3 H Lymphocytes % (Manual) Monocytes % (Manual) Nucleated RBC % Seg Neutrophils # Seg Neutrophils # Man Monocytes # (Manual) PT INR Activated Clotting Time POC ABG pH POC ABG pCO2 POC ABG pO2 Sodium 136 L Potassium Chloride 97.6 L Carbon Dioxide BUN Creatinine 0.2 L Glucose 123 H POC Glucose 116 H Calcium Magnesium Direct Bilirubin AST 71 H ALT 125 H Alkaline Phosphatase 158 H Total Creatine Kinase CK-MB (CK-2) CK-MB (CK-2) Rel Index Troponin T C-Reactive Protein Total Protein Albumin 2.6 L Triglycerides Ur Specific [place] Urine WBC (Auto) Miscellaneous Test 05/01/17 05/01/17 05/02/17 11:59 17:23 00:08 WBC RBC Hgb Hct MCV MCH Plt Count Lymph % (Auto) [place] % (Auto) Eos % (Auto) Baso % (Auto) Lymph # Baso # Seg Neutrophils % Lymphocytes % (Manual) Monocytes % (Manual) Nucleated RBC % Seg Neutrophils # Seg Neutrophils # Man Monocytes # (Manual) PT INR Activated Clotting Time POC ABG pH POC ABG pCO2 POC ABG pO2 Sodium Potassium Chloride Carbon Dioxide BUN Creatinine Glucose POC Glucose 118 H 144 H 122 H Calcium Magnesium Direct Bilirubin AST ALT Alkaline Phosphatase Total Creatine Kinase CK-MB (CK-2) CK-MB (CK-2) Rel Index Troponin T C-Reactive Protein Total Protein Albumin Triglycerides Ur Specific [place] Urine WBC (Auto) Miscellaneous Test 05/02/17 05:50 WBC RBC Hgb Hct MCV MCH Plt Count Lymph % (Auto) [place] % (Auto) Eos % (Auto) Baso % (Auto) Lymph # Baso # Seg Neutrophils % Lymphocytes % (Manual) Monocytes % (Manual) Nucleated RBC % Seg Neutrophils # Seg Neutrophils # Man Monocytes # (Manual) PT INR Activated Clotting Time POC ABG pH POC ABG pCO2 POC ABG pO2 Sodium Potassium Chloride Carbon Dioxide BUN Creatinine Glucose POC Glucose 120 H Calcium Magnesium Direct Bilirubin AST ALT Alkaline Phosphatase Total Creatine Kinase CK-MB (CK-2) CK-MB (CK-2) Rel Index Troponin T C-Reactive Protein Total Protein Albumin Triglycerides Ur Specific [place] Urine WBC (Auto) Miscellaneous Test
[2017-05-02] MEDS: ASPIRIN PO SCH (10:24)
[2017-05-02] MEDS: PLAVIX PO SCH (10:24)
[2017-05-02] MEDS: CORDARONE PO SCH ×2 (10:24→22:31)
[2017-05-02] MEDS: ZESTRIL PO SCH (10:25)
[2017-05-02] MEDS: HEPARIN SUB-Q SCH ×2 (10:25→22:31)
[2017-05-02] MEDS: PROTONIX FEEDTUBE SCH (10:25)
[2017-05-02] MEDS: TRANSDERM-SCOP TD SCH (15:00)
[2017-05-03] MEDS: LOPRESSOR PO SCH ×4 (05:37→18:52)
[2017-05-03] MEDS: NOVOLOG SUB-Q SCH ×4 (05:39→18:30)
--- NOTE | 2017-05-03 09:58 | Progress Note ---
Assessment and Plan Out of hospital Vfib arrest Hypoxic encephalopathy. No major changes clinically. Off sedation STEMI Prior x-rays with residual infiltrate, possibly residual vascular congestion s/p LHC with stent placement Sputum culture positive for MRSA. Prior infiltrate RLL Recommendations f/u hospital ventilator bundle, Continue blood sugar monitoring, avoid hypoglycemia Watch for fever Mechanical ventilation support, as needed Daily morning sedation vacation and initiate SBT DVT prophylaxis PPI prophylaxis Neuro f/u Prognosis at this point still not good for meanful assisted recovery Recommend updating advanced family. Critical care time with a 31 minutes of [id number] evaluation and coordination of care Subjective Date of service: 05/03/17 Principal diagnosis: Acute NE Interval history: Off Sedation. Unresponsive Objective Vital Signs - 12hr 05/02/17 05/02/17 05/02/17 22:00 23:29 23:49 Temperature 99.1 F Pulse Rate 93 H 92 H Respiratory 22 Rate Blood Pressure 103/62 103/62 O2 Sat by Pulse 98 Oximetry O2 Sat by Pulse Oximetry [ Assessment] 05/03/17 05/03/17 05/03/17 00:00 02:00 03:20 Temperature Pulse Rate 92 H 99 H 99 H Respiratory 25 H 25 H Rate Blood Pressure 96/62 96/62 O2 Sat by Pulse 98 98 Oximetry O2 Sat by Pulse Oximetry [ Assessment] 05/03/17 05/03/17 05/03/17 03:29 04:00 06:00 Temperature 99.3 F Pulse Rate 102 H 91 H Respiratory 23 24 Rate Blood Pressure 109/68 98/59 O2 Sat by Pulse 92 Oximetry O2 Sat by Pulse Oximetry [ Assessment] 05/03/17 05/03/17 05/03/17 08:00 08:37 08:42 Temperature 98.6 F Pulse Rate 93 H Respiratory 22 Rate Blood Pressure 94/54 O2 Sat by Pulse 98 Oximetry O2 Sat by Pulse 97 Oximetry [ Assessment] Constitutional: comatose, other Eyes: non-icteric ENT: oropharynx moist Neck: supple, no JVD, other (tracheotomy in position) Effort: normal Ascultation: Bilateral: clear, diminished breath sounds Percussion: Bilateral: not dull Cardiovascular: regular rate and rhythm Gastrointestinal: normoactive bowel sounds, soft, non-tender, non-distended Integumentary: normal Extremities: no cyanosis, no edema, pink and warm Neurologic: other ( deep stupor, some eye opening response to call,tactile stimulation, otherwise unchaged. No posturing) Psychiatric: other (unable to assess) CBC and BMP: 05/01/17 05:30 05/01/17 05:30 ABG, PT/INR, D-dimer: ABG POC ABG pH 7.551 (7.35-7.45) H 04/30/17 18:20 POC ABG pCO2 32.7 (35-45) L 04/30/17 18:20 POC ABG pO2 101 (80-105) 04/30/17 18:20 POC ABG HCO3 28.7 04/30/17 18:20 POC ABG Total CO2 30 04/30/17 18:20 POC ABG O2 Sat 99 04/30/17 18:20 PT/INR, D-dimer PT 14.9 Sec. (12.2-14.9) 04/10/17 04:16 INR 1.11 (0.87-1.13) 04/10/17 04:16 Abnormal lab findings: Abnormal Labs 03/29/17 03/29/17 03/29/17 11:35 11:35 11:40 WBC RBC Hgb Hct MCV 98 H MCH 33 H Plt Count Lymph % (Auto) [place] % (Auto) Eos % (Auto) Baso % (Auto) Lymph # Baso # Seg Neutrophils % Lymphocytes % (Manual) Monocytes % (Manual) 9.0 H Nucleated RBC % 1.0 H Seg Neutrophils # Seg Neutrophils # Man Monocytes # (Manual) 0.9 H PT 15.8 H INR 1.20 H Activated Clotting Time POC ABG pH POC ABG pCO2 POC ABG pO2 Sodium Potassium 2.7 L* Chloride 95.3 L Carbon Dioxide 17 L BUN Creatinine Glucose 435 H POC Glucose Calcium Magnesium Direct Bilirubin AST ALT Alkaline Phosphatase Total Creatine Kinase CK-MB (CK-2) CK-MB (CK-2) Rel Index Troponin T C-Reactive Protein Total Protein 6.1 L Albumin 3.5 L Triglycerides Ur Specific [place] Urine WBC (Auto) Miscellaneous Test 03/29/17 03/29/17 03/29/17 12:34 13:10 13:25 WBC RBC Hgb Hct MCV MCH Plt Count Lymph % (Auto) [place] % (Auto) Eos % (Auto) Baso % (Auto) Lymph # Baso # Seg Neutrophils % Lymphocytes % (Manual) Monocytes % (Manual) Nucleated RBC % Seg Neutrophils # Seg Neutrophils # Man Monocytes # (Manual) PT INR Activated Clotting Time 142 H 169 H 175 H POC ABG pH POC ABG pCO2 POC ABG pO2 Sodium Potassium Chloride Carbon Dioxide BUN Creatinine Glucose POC Glucose Calcium Magnesium Direct Bilirubin AST ALT Alkaline Phosphatase Total Creatine Kinase CK-MB (CK-2) CK-MB (CK-2) Rel Index Troponin T C-Reactive Protein Total Protein Albumin Triglycerides Ur Specific [place] Urine WBC (Auto) Miscellaneous Test 03/29/17 03/29/17 03/29/17 14:50 15:18 19:52 WBC RBC Hgb Hct MCV MCH Plt Count Lymph % (Auto) [place] % (Auto) Eos % (Auto) Baso % (Auto) Lymph # Baso # Seg Neutrophils % Lymphocytes % (Manual) Monocytes % (Manual) Nucleated RBC % Seg Neutrophils # Seg Neutrophils # Man Monocytes # (Manual) PT INR Activated Clotting Time 175 H POC ABG pH 7.293 L POC ABG pCO2 POC ABG pO2 602 H Sodium Potassium Chloride Carbon Dioxide BUN Creatinine Glucose POC Glucose Calcium Magnesium Direct Bilirubin AST ALT Alkaline Phosphatase Total Creatine Kinase 7263 H CK-MB (CK-2) > 300.0 H CK-MB (CK-2) Rel Index 4.1 H Troponin T 8.080 H* D C-Reactive Protein Total Protein Albumin Triglycerides 195 H Ur Specific [place] Urine WBC (Auto) Miscellaneous Test 03/30/17 03/30/17 03/30/17 03:50 03:50 06:19 WBC 19.5 H RBC Hgb Hct MCV MCH Plt Count Lymph % (Auto) [place] % (Auto) Eos % (Auto) Baso % (Auto) Lymph # Baso # Seg Neutrophils % Lymphocytes % (Manual) 7.0 L Monocytes % (Manual) Nucleated RBC % Seg Neutrophils # Seg Neutrophils # Man 12.7 H Monocytes # (Manual) 1.4 H PT INR Activated Clotting Time POC ABG pH POC ABG pCO2 28.2 L POC ABG pO2 108 H Sodium Potassium Chloride 108.9 H Carbon Dioxide 15 L BUN 25 H Creatinine Glucose 158 H POC Glucose Calcium 8.1 L Magnesium Direct Bilirubin AST ALT Alkaline Phosphatase Total Creatine Kinase 7963 H CK-MB (CK-2) > 300.0 H CK-MB (CK-2) Rel Index Troponin T 6.850 H* C-Reactive Protein Total Protein Albumin Triglycerides Ur Specific [place] Urine WBC (Auto) Miscellaneous Test 03/30/17 03/30/17 03/31/17 09:45 16:04 02:19 WBC RBC Hgb Hct MCV MCH Plt Count Lymph % (Auto) [place] % (Auto) Eos % (Auto) Baso % (Auto) Lymph # Baso # Seg Neutrophils % Lymphocytes % (Manual) Monocytes % (Manual) Nucleated RBC % Seg Neutrophils # Seg Neutrophils # Man Monocytes # (Manual) PT INR Activated Clotting Time POC ABG pH POC ABG pCO2 POC ABG pO2 Sodium Potassium Chloride Carbon Dioxide BUN Creatinine Glucose POC Glucose 137 H Calcium Magnesium Direct Bilirubin AST ALT Alkaline Phosphatase Total Creatine Kinase CK-MB (CK-2) CK-MB (CK-2) Rel Index Troponin T C-Reactive Protein 21.80 H Total Protein Albumin Triglycerides Ur Specific [place] 1.031 H Urine WBC (Auto) Miscellaneous Test 03/31/17 03/31/17 03/31/17 03:57 06:54 09:22 WBC RBC Hgb Hct MCV MCH Plt Count Lymph % (Auto) [place] % (Auto) Eos % (Auto) Baso % (Auto) Lymph # Baso # Seg Neutrophils % Lymphocytes % (Manual) Monocytes % (Manual) Nucleated RBC % Seg Neutrophils # Seg Neutrophils # Man Monocytes # (Manual) PT INR Activated Clotting Time POC ABG pH 7.475 H POC ABG pCO2 25.4 L POC ABG pO2 62 L Sodium Potassium Chloride Carbon Dioxide 19 L BUN 22 H Creatinine 0.6 L Glucose 148 H POC Glucose 143 H Calcium 8.3 L Magnesium Direct Bilirubin AST ALT Alkaline Phosphatase Total Creatine Kinase CK-MB (CK-2) CK-MB (CK-2) Rel Index Troponin T C-Reactive Protein Total Protein Albumin Triglycerides Ur Specific [place] Urine WBC (Auto) Miscellaneous Test 03/31/17 03/31/17 03/31/17 11:40 17:47 23:38 WBC RBC Hgb Hct MCV MCH Plt Count Lymph % (Auto) [place] % (Auto) Eos % (Auto) Baso % (Auto) Lymph # Baso # Seg Neutrophils % Lymphocytes % (Manual) Monocytes % (Manual) Nucleated RBC % Seg Neutrophils # Seg Neutrophils # Man Monocytes # (Manual) PT INR Activated Clotting Time POC ABG pH POC ABG pCO2 POC ABG pO2 Sodium Potassium Chloride Carbon Dioxide BUN Creatinine Glucose POC Glucose 127 H 137 H 148 H Calcium Magnesium Direct Bilirubin AST ALT Alkaline Phosphatase Total Creatine Kinase CK-MB (CK-2) CK-MB (CK-2) Rel Index Troponin T C-Reactive Protein Total Protein Albumin Triglycerides Ur Specific [place] Urine WBC (Auto) Miscellaneous Test 04/01/17 04/01/17 04/01/17 04:29 05:01 11:54 WBC RBC Hgb Hct MCV MCH Plt Count Lymph % (Auto) [place] % (Auto) Eos % (Auto) Baso % (Auto) Lymph # Baso # Seg Neutrophils % Lymphocytes % (Manual) Monocytes % (Manual) Nucleated RBC % Seg Neutrophils # Seg Neutrophils # Man Monocytes # (Manual) PT INR Activated Clotting Time POC ABG pH 7.513 H POC ABG pCO2 22.1 L POC ABG pO2 64 L Sodium Potassium Chloride Carbon Dioxide BUN Creatinine Glucose POC Glucose 121 H Calcium Magnesium Direct Bilirubin AST ALT Alkaline Phosphatase Total Creatine Kinase CK-MB (CK-2) CK-MB (CK-2) Rel Index Troponin T C-Reactive Protein Total Protein Albumin Triglycerides 151 H Ur Specific [place] Urine WBC (Auto) Miscellaneous Test 04/01/17 04/02/17 04/02/17 18:17 00:11 04:52 WBC RBC Hgb Hct MCV MCH Plt Count Lymph % (Auto) [place] % (Auto) Eos % (Auto) Baso % (Auto) Lymph # Baso # Seg Neutrophils % Lymphocytes % (Manual) Monocytes % (Manual) Nucleated RBC % Seg Neutrophils # Seg Neutrophils # Man Monocytes # (Manual) PT INR Activated Clotting Time POC ABG pH 7.524 H POC ABG pCO2 25.5 L POC ABG pO2 66 L Sodium Potassium Chloride Carbon Dioxide BUN Creatinine Glucose POC Glucose 117 H 122 H Calcium Magnesium Direct Bilirubin AST ALT Alkaline Phosphatase Total Creatine Kinase CK-MB (CK-2) CK-MB (CK-2) Rel Index Troponin T C-Reactive Protein Total Protein Albumin Triglycerides Ur Specific [place] Urine WBC (Auto) Miscellaneous Test 04/02/17 04/02/17 04/02/17 05:18 10:41 12:19 WBC RBC Hgb Hct MCV MCH Plt Count Lymph % (Auto) [place] % (Auto) Eos % (Auto) Baso % (Auto) Lymph # Baso # Seg Neutrophils % Lymphocytes % (Manual) Monocytes % (Manual) Nucleated RBC % Seg Neutrophils # Seg Neutrophils # Man Monocytes # (Manual) PT INR Activated Clotting Time POC ABG pH 7.534 H POC ABG pCO2 27.4 L POC ABG pO2 Sodium Potassium Chloride Carbon Dioxide BUN Creatinine Glucose POC Glucose 132 H 129 H Calcium Magnesium Direct Bilirubin AST ALT Alkaline Phosphatase Total Creatine Kinase CK-MB (CK-2) CK-MB (CK-2) Rel Index Troponin T C-Reactive Protein Total Protein Albumin Triglycerides Ur Specific [place] Urine WBC (Auto) Miscellaneous Test 04/02/17 04/03/17 04/03/17 18:05 00:08 05:09 WBC RBC Hgb Hct MCV MCH Plt Count Lymph % (Auto) [place] % (Auto) Eos % (Auto) Baso % (Auto) Lymph # Baso # Seg Neutrophils % Lymphocytes % (Manual) Monocytes % (Manual) Nucleated RBC % Seg Neutrophils # Seg Neutrophils # Man Monocytes # (Manual) PT INR Activated Clotting Time POC ABG pH 7.455 H POC ABG pCO2 33.2 L POC ABG pO2 120 H Sodium Potassium Chloride Carbon Dioxide BUN Creatinine Glucose POC Glucose 136 H 128 H Calcium Magnesium Direct Bilirubin AST ALT Alkaline Phosphatase Total Creatine Kinase CK-MB (CK-2) CK-MB (CK-2) Rel Index Troponin T C-Reactive Protein Total Protein Albumin Triglycerides Ur Specific [place] Urine WBC (Auto) Miscellaneous Test 04/03/17 04/03/17 04/03/17 06:32 11:54 12:16 WBC 11.9 H RBC Hgb Hct MCV MCH Plt Count 125 L Lymph % (Auto) 4.8 L [place] % (Auto) Eos % (Auto) Baso % (Auto) Lymph # 0.6 L Baso # Seg Neutrophils % 86.7 H Lymphocytes % (Manual) Monocytes % (Manual) Nucleated RBC % Seg Neutrophils # 10.3 H Seg Neutrophils # Man Monocytes # (Manual) PT INR Activated Clotting Time POC ABG pH POC ABG pCO2 POC ABG pO2 Sodium Potassium Chloride Carbon Dioxide BUN Creatinine Glucose POC Glucose 138 H 143 H Calcium Magnesium Direct Bilirubin AST ALT Alkaline Phosphatase Total Creatine Kinase CK-MB (CK-2) CK-MB (CK-2) Rel Index Troponin T C-Reactive Protein Total Protein Albumin Triglycerides Ur Specific [place] Urine WBC (Auto) Miscellaneous Test 04/03/17 04/03/17 04/04/17 17:33 23:59 04:34 WBC RBC Hgb Hct MCV MCH Plt Count Lymph % (Auto) [place] % (Auto) Eos % (Auto) Baso % (Auto) Lymph # Baso # Seg Neutrophils % Lymphocytes % (Manual) Monocytes % (Manual) Nucleated RBC % Seg Neutrophils # Seg Neutrophils # Man Monocytes # (Manual) PT INR Activated Clotting Time POC ABG pH 7.457 H POC ABG pCO2 29.8 L POC ABG pO2 76 L Sodium Potassium Chloride Carbon Dioxide BUN Creatinine Glucose POC Glucose 130 H 155 H Calcium Magnesium Direct Bilirubin AST ALT Alkaline Phosphatase Total Creatine Kinase CK-MB (CK-2) CK-MB (CK-2) Rel Index Troponin T C-Reactive Protein Total Protein Albumin Triglycerides Ur Specific [place] Urine WBC (Auto) Miscellaneous Test 04/04/17 04/04/17 04/04/17 05:27 12:22 18:18 WBC RBC Hgb Hct MCV MCH Plt Count Lymph % (Auto) [place] % (Auto) Eos % (Auto) Baso % (Auto) Lymph # Baso # Seg Neutrophils % Lymphocytes % (Manual) Monocytes % (Manual) Nucleated RBC % Seg Neutrophils # Seg Neutrophils # Man Monocytes # (Manual) PT INR Activated Clotting Time POC ABG pH POC ABG pCO2 POC ABG pO2 Sodium Potassium Chloride Carbon Dioxide BUN Creatinine Glucose POC Glucose 164 H 146 H 130 H Calcium Magnesium Direct Bilirubin AST ALT Alkaline Phosphatase Total Creatine Kinase CK-MB (CK-2) CK-MB (CK-2) Rel Index Troponin T C-Reactive Protein Total Protein Albumin Triglycerides Ur Specific [place] Urine WBC (Auto) Miscellaneous Test 04/05/17 04/05/17 04/05/17 04:43 05:28 11:36 WBC RBC Hgb Hct MCV MCH Plt Count Lymph % (Auto) [place] % (Auto) Eos % (Auto) Baso % (Auto) Lymph # Baso # Seg Neutrophils % Lymphocytes % (Manual) Monocytes % (Manual) Nucleated RBC % Seg Neutrophils # Seg Neutrophils # Man Monocytes # (Manual) PT INR Activated Clotting Time POC ABG pH 7.479 H POC ABG pCO2 33.5 L POC ABG pO2 76 L Sodium Potassium Chloride Carbon Dioxide BUN Creatinine Glucose POC Glucose 145 H 136 H Calcium Magnesium Direct Bilirubin AST ALT Alkaline Phosphatase Total Creatine Kinase CK-MB (CK-2) CK-MB (CK-2) Rel Index Troponin T C-Reactive Protein Total Protein Albumin Triglycerides Ur Specific [place] Urine WBC (Auto) Miscellaneous Test 0104/06/17 04/06/17 17:58 00:16 05:26 WBC RBC Hgb Hct MCV MCH Plt Count Lymph % (Auto) [place] % (Auto) Eos % (Auto) Baso % (Auto) Lymph # Baso # Seg Neutrophils % Lymphocytes % (Manual) Monocytes % (Manual) Nucleated RBC % Seg Neutrophils # Seg Neutrophils # Man Monocytes # (Manual) PT INR Activated Clotting Time POC ABG pH POC ABG pCO2 POC ABG pO2 Sodium Potassium Chloride Carbon Dioxide BUN Creatinine Glucose POC Glucose 130 H 159 H 146 H Calcium Magnesium Direct Bilirubin AST ALT Alkaline Phosphatase Total Creatine Kinase CK-MB (CK-2) CK-MB (CK-2) Rel Index Troponin T C-Reactive Protein Total Protein Albumin Triglycerides Ur Specific [place] Urine WBC (Auto) Miscellaneous Test 04/06/17 04/06/17 04/07/17 13:11 16:54 11:45 WBC RBC Hgb Hct MCV MCH Plt Count Lymph % (Auto) [place] % (Auto) Eos % (Auto) Baso % (Auto) Lymph # Baso # Seg Neutrophils % Lymphocytes % (Manual) Monocytes % (Manual) Nucleated RBC % Seg Neutrophils # Seg Neutrophils # Man Monocytes # (Manual) PT INR Activated Clotting Time POC ABG pH 7.517 H POC ABG pCO2 32.1 L POC ABG pO2 Sodium Potassium Chloride Carbon Dioxide BUN Creatinine Glucose POC Glucose 132 H 123 H Calcium Magnesium Direct Bilirubin AST ALT Alkaline Phosphatase Total Creatine Kinase CK-MB (CK-2) CK-MB (CK-2) Rel Index Troponin T C-Reactive Protein Total Protein Albumin Triglycerides Ur Specific [place] Urine WBC (Auto) Miscellaneous Test 04/07/17 04/07/17 04/07/17 12:51 17:40 23:55 WBC RBC Hgb Hct MCV MCH Plt Count Lymph % (Auto) [place] % (Auto) Eos % (Auto) Baso % (Auto) Lymph # Baso # Seg Neutrophils % Lymphocytes % (Manual) Monocytes % (Manual) Nucleated RBC % Seg Neutrophils # Seg Neutrophils # Man Monocytes # (Manual) PT INR Activated Clotting Time POC ABG pH POC ABG pCO2 POC ABG pO2 Sodium Potassium Chloride Carbon Dioxide BUN Creatinine Glucose POC Glucose 138 H 154 H 143 H Calcium Magnesium Direct Bilirubin AST ALT Alkaline Phosphatase Total Creatine Kinase CK-MB (CK-2) CK-MB (CK-2) Rel Index Troponin T C-Reactive Protein Total Protein Albumin Triglycerides Ur Specific [place] Urine WBC (Auto) Miscellaneous Test 04/08/17 04/08/17 04/08/17 05:27 11:14 17:44 WBC RBC Hgb Hct MCV MCH Plt Count Lymph % (Auto) [place] % (Auto) Eos % (Auto) Baso % (Auto) Lymph # Baso # Seg Neutrophils % Lymphocytes % (Manual) Monocytes % (Manual) Nucleated RBC % Seg Neutrophils # Seg Neutrophils # Man Monocytes # (Manual) PT INR Activated Clotting Time POC ABG pH POC ABG pCO2 POC ABG pO2 Sodium Potassium Chloride Carbon Dioxide BUN Creatinine Glucose POC Glucose 142 H 153 H 129 H Calcium Magnesium Direct Bilirubin AST ALT Alkaline Phosphatase Total Creatine Kinase CK-MB (CK-2) CK-MB (CK-2) Rel Index Troponin T C-Reactive Protein Total Protein Albumin Triglycerides Ur Specific [place] Urine WBC (Auto) Miscellaneous Test 04/09/17 04/09/17 04/09/17 08:20 11:21 17:37 WBC RBC Hgb Hct MCV MCH Plt Count Lymph % (Auto) [place] % (Auto) Eos % (Auto) Baso % (Auto) Lymph # Baso # Seg Neutrophils % Lymphocytes % (Manual) Monocytes % (Manual) Nucleated RBC % Seg Neutrophils # Seg Neutrophils # Man Monocytes # (Manual) PT INR Activated Clotting Time POC ABG pH POC ABG pCO2 POC ABG pO2 Sodium 147 H Potassium Chloride 108.8 H Carbon Dioxide BUN 39 H Creatinine 0.5 L Glucose 138 H POC Glucose 152 H 109 H Calcium Magnesium Direct Bilirubin AST ALT Alkaline Phosphatase Total Creatine Kinase CK-MB (CK-2) CK-MB (CK-2) Rel Index Troponin T C-Reactive Protein Total Protein Albumin Triglycerides Ur Specific [place] Urine WBC (Auto) Miscellaneous Test 04/10/17 04/10/17 04/10/17 00:13 04:16 04:16 WBC RBC Hgb 11.5 L Hct MCV 96 H MCH Plt Count 103 L Lymph % (Auto) 11.1 L [place] % (Auto) Eos % (Auto) Baso % (Auto) Lymph # Baso # Seg Neutrophils % 81.5 H Lymphocytes % (Manual) Monocytes % (Manual) Nucleated RBC % Seg Neutrophils # 8.8 H Seg Neutrophils # Man Monocytes # (Manual) PT INR Activated Clotting Time POC ABG pH POC ABG pCO2 POC ABG pO2 Sodium 148 H Potassium Chloride 109.0 H Carbon Dioxide BUN 36 H Creatinine 0.5 L Glucose 131 H POC Glucose 127 H Calcium 8.1 L Magnesium 2.40 H Direct Bilirubin AST 206 H ALT 228 H Alkaline Phosphatase 178 H Total Creatine Kinase CK-MB (CK-2) CK-MB (CK-2) Rel Index Troponin T C-Reactive Protein Total Protein Albumin 2.8 L Triglycerides Ur Specific [place] Urine WBC (Auto) Miscellaneous Test 04/10/17 04/10/17 04/10/17 06:01 11:57 18:27 WBC RBC Hgb Hct MCV MCH Plt Count Lymph % (Auto) [place] % (Auto) Eos % (Auto) Baso % (Auto) Lymph # Baso # Seg Neutrophils % Lymphocytes % (Manual) Monocytes % (Manual) Nucleated RBC % Seg Neutrophils # Seg Neutrophils # Man Monocytes # (Manual) PT INR Activated Clotting Time POC ABG pH POC ABG pCO2 POC ABG pO2 Sodium Potassium Chloride Carbon Dioxide BUN Creatinine Glucose POC Glucose 108 H 154 H 130 H Calcium Magnesium Direct Bilirubin AST ALT Alkaline Phosphatase Total Creatine Kinase CK-MB (CK-2) CK-MB (CK-2) Rel Index Troponin T C-Reactive Protein Total Protein Albumin Triglycerides Ur Specific [place] Urine WBC (Auto) Miscellaneous Test 04/11/17 04/11/17 04/12/17 12:25 17:10 00:22 WBC RBC Hgb Hct MCV MCH Plt Count Lymph % (Auto) [place] % (Auto) Eos % (Auto) Baso % (Auto) Lymph # Baso # Seg Neutrophils % Lymphocytes % (Manual) Monocytes % (Manual) Nucleated RBC % Seg Neutrophils # Seg Neutrophils # Man Monocytes # (Manual) PT INR Activated Clotting Time POC ABG pH POC ABG pCO2 POC ABG pO2 Sodium Potassium Chloride Carbon Dioxide BUN Creatinine Glucose POC Glucose 107 H 129 H 128 H Calcium Magnesium Direct Bilirubin AST ALT Alkaline Phosphatase Total Creatine Kinase CK-MB (CK-2) CK-MB (CK-2) Rel Index Troponin T C-Reactive Protein Total Protein Albumin Triglycerides Ur Specific [place] Urine WBC (Auto) Miscellaneous Test 04/12/17 04/12/17 04/12/17 05:00 11:57 17:47 WBC RBC Hgb Hct MCV MCH Plt Count Lymph % (Auto) [place] % (Auto) Eos % (Auto) Baso % (Auto) Lymph # Baso # Seg Neutrophils % Lymphocytes % (Manual) Monocytes % (Manual) Nucleated RBC % Seg Neutrophils # Seg Neutrophils # Man Monocytes # (Manual) PT INR Activated Clotting Time POC ABG pH POC ABG pCO2 POC ABG pO2 Sodium Potassium Chloride Carbon Dioxide BUN Creatinine Glucose POC Glucose 140 H 142 H Calcium Magnesium Direct Bilirubin AST 158 H ALT 184 H Alkaline Phosphatase 170 H Total Creatine Kinase CK-MB (CK-2) CK-MB (CK-2) Rel Index Troponin T C-Reactive Protein Total Protein Albumin 2.8 L Triglycerides Ur Specific [place] Urine WBC (Auto) Miscellaneous Test 04/12/17 04/12/17 04/13/17 21:36 21:36 01:37 WBC RBC Hgb Hct MCV MCH Plt Count Lymph % (Auto) [place] % (Auto) Eos % (Auto) Baso % (Auto) Lymph # Baso # Seg Neutrophils % Lymphocytes % (Manual) Monocytes % (Manual) Nucleated RBC % Seg Neutrophils # Seg Neutrophils # Man Monocytes # (Manual) PT INR Activated Clotting Time POC ABG pH POC ABG pCO2 POC ABG pO2 Sodium Potassium Chloride Carbon Dioxide BUN Creatinine Glucose POC Glucose 126 H Calcium Magnesium Direct Bilirubin AST ALT Alkaline Phosphatase Total Creatine Kinase 1404 H CK-MB (CK-2) 8.0 H CK-MB (CK-2) Rel Index Troponin T 0.767 H* C-Reactive Protein Total Protein Albumin Triglycerides Ur Specific [place] Urine WBC (Auto) Miscellaneous Test 04/13/17 04/13/17 04/13/17 04:45 04:52 12:17 WBC RBC Hgb Hct MCV MCH Plt Count Lymph % (Auto) [place] % (Auto) Eos % (Auto) Baso % (Auto) Lymph # Baso # Seg Neutrophils % Lymphocytes % (Manual) Monocytes % (Manual) Nucleated RBC % Seg Neutrophils # Seg Neutrophils # Man Monocytes # (Manual) PT INR Activated Clotting Time POC ABG pH POC ABG pCO2 POC ABG pO2 Sodium 148 H Potassium Chloride 112.8 H Carbon Dioxide BUN 33 H Creatinine 0.4 L Glucose 121 H POC Glucose 126 H 149 H Calcium Magnesium Direct Bilirubin AST 160 H ALT 189 H Alkaline Phosphatase 166 H Total Creatine Kinase CK-MB (CK-2) CK-MB (CK-2) Rel Index Troponin T C-Reactive Protein Total Protein Albumin 2.6 L Triglycerides Ur Specific [place] Urine WBC (Auto) Miscellaneous Test 04/13/17 04/14/17 04/14/17 17:45 00:20 00:45 WBC RBC Hgb Hct MCV MCH Plt Count Lymph % (Auto) [place] % (Auto) Eos % (Auto) Baso % (Auto) Lymph # Baso # Seg Neutrophils % Lymphocytes % (Manual) Monocytes % (Manual) Nucleated RBC % Seg Neutrophils # Seg Neutrophils # Man Monocytes # (Manual) PT INR Activated Clotting Time POC ABG pH POC ABG pCO2 POC ABG pO2 Sodium Potassium Chloride Carbon Dioxide BUN Creatinine Glucose POC Glucose 130 H 144 H 144 H Calcium Magnesium Direct Bilirubin AST ALT Alkaline Phosphatase Total Creatine Kinase CK-MB (CK-2) CK-MB (CK-2) Rel Index Troponin T C-Reactive Protein Total Protein Albumin Triglycerides Ur Specific [place] Urine WBC (Auto) Miscellaneous Test 04/14/17 04/14/17 04/14/17 05:40 11:06 11:31 WBC RBC Hgb Hct MCV MCH Plt Count Lymph % (Auto) [place] % (Auto) Eos % (Auto) Baso % (Auto) Lymph # Baso # Seg Neutrophils % Lymphocytes % (Manual) Monocytes % (Manual) Nucleated RBC % Seg Neutrophils # Seg Neutrophils # Man Monocytes # (Manual) PT INR Activated Clotting Time POC ABG pH POC ABG pCO2 POC ABG pO2 Sodium Potassium Chloride Carbon Dioxide BUN Creatinine Glucose POC Glucose 139 H 123 H Calcium Magnesium Direct Bilirubin AST ALT Alkaline Phosphatase Total Creatine Kinase CK-MB (CK-2) CK-MB (CK-2) Rel Index Troponin T C-Reactive Protein Total Protein Albumin Triglycerides Ur Specific [place] 1.033 H Urine WBC (Auto) > 182.0 H Miscellaneous Test 04/14/17 04/14/17 04/15/17 18:00 23:52 05:15 WBC 12.5 H RBC 3.38 L Hgb 10.6 L Hct 32.7 L MCV 97 H MCH Plt Count 107 L Lymph % (Auto) 8.7 L [place] % (Auto) Eos % (Auto) Baso % (Auto) Lymph # 1.1 L Baso # Seg Neutrophils % 86.1 H Lymphocytes % (Manual) Monocytes % (Manual) Nucleated RBC % Seg Neutrophils # 10.7 H Seg Neutrophils # Man Monocytes # (Manual) PT INR Activated Clotting Time POC ABG pH POC ABG pCO2 POC ABG pO2 Sodium Potassium Chloride Carbon Dioxide BUN Creatinine Glucose POC Glucose 133 H 133 H Calcium Magnesium Direct Bilirubin AST ALT Alkaline Phosphatase Total Creatine Kinase CK-MB (CK-2) CK-MB (CK-2) Rel Index Troponin T C-Reactive Protein Total Protein Albumin Triglycerides Ur Specific [place] Urine WBC (Auto) Miscellaneous Test 04/15/17 04/15/17 04/15/17 05:15 05:25 11:50 WBC RBC Hgb Hct MCV MCH Plt Count Lymph % (Auto) [place] % (Auto) Eos % (Auto) Baso % (Auto) Lymph # Baso # Seg Neutrophils % Lymphocytes % (Manual) Monocytes % (Manual) Nucleated RBC % Seg Neutrophils # Seg Neutrophils # Man Monocytes # (Manual) PT INR Activated Clotting Time POC ABG pH POC ABG pCO2 POC ABG pO2 Sodium 149 H Potassium 3.5 L Chloride 114.1 H Carbon Dioxide 21 L BUN 29 H Creatinine 0.4 L Glucose 128 H POC Glucose 133 H 107 H Calcium 8.3 L Magnesium Direct Bilirubin 0.4 H AST 149 H ALT 182 H Alkaline Phosphatase 143 H Total Creatine Kinase CK-MB (CK-2) CK-MB (CK-2) Rel Index Troponin T C-Reactive Protein Total Protein Albumin 2.5 L Triglycerides Ur Specific [place] Urine WBC (Auto) Miscellaneous Test 04/15/17 04/16/17 04/16/17 16:55 00:02 03:17 WBC RBC 3.39 L Hgb 10.5 L Hct 32.4 L MCV 96 H MCH Plt Count 106 L Lymph % (Auto) 6.7 L [place] % (Auto) Eos % (Auto) Baso % (Auto) Lymph # 0.6 L Baso # Seg Neutrophils % 86.8 H Lymphocytes % (Manual) Monocytes % (Manual) Nucleated RBC % Seg Neutrophils # 8.2 H Seg Neutrophils # Man Monocytes # (Manual) PT INR Activated Clotting Time POC ABG pH POC ABG pCO2 POC ABG pO2 Sodium Potassium Chloride Carbon Dioxide BUN Creatinine Glucose POC Glucose 146 H 148 H Calcium Magnesium Direct Bilirubin AST ALT Alkaline Phosphatase Total Creatine Kinase CK-MB (CK-2) CK-MB (CK-2) Rel Index Troponin T C-Reactive Protein Total Protein Albumin Triglycerides Ur Specific [place] Urine WBC (Auto) Miscellaneous Test 04/16/17 04/16/17 04/16/17 03:17 05:19 11:13 WBC RBC Hgb Hct MCV MCH Plt Count Lymph % (Auto) [place] % (Auto) Eos % (Auto) Baso % (Auto) Lymph # Baso # Seg Neutrophils % Lymphocytes % (Manual) Monocytes % (Manual) Nucleated RBC % Seg Neutrophils # Seg Neutrophils # Man Monocytes # (Manual) PT INR Activated Clotting Time POC ABG pH POC ABG pCO2 POC ABG pO2 Sodium 149 H Potassium Chloride 111.1 H Carbon Dioxide 20 L BUN 27 H Creatinine 0.3 L Glucose 156 H POC Glucose 171 H 169 H Calcium 8.3 L Magnesium Direct Bilirubin AST ALT Alkaline Phosphatase Total Creatine Kinase CK-MB (CK-2) CK-MB (CK-2) Rel Index Troponin T C-Reactive Protein Total Protein Albumin Triglycerides Ur Specific [place] Urine WBC (Auto) Miscellaneous Test 04/16/17 04/17/17 04/17/17 17:03 00:00 05:09 WBC RBC Hgb Hct MCV MCH Plt Count Lymph % (Auto) [place] % (Auto) Eos % (Auto) Baso % (Auto) Lymph # Baso # Seg Neutrophils % Lymphocytes % (Manual) Monocytes % (Manual) Nucleated RBC % Seg Neutrophils # Seg Neutrophils # Man Monocytes # (Manual) PT INR Activated Clotting Time POC ABG pH POC ABG pCO2 POC ABG pO2 Sodium Potassium Chloride Carbon Dioxide BUN Creatinine Glucose POC Glucose 151 H 165 H 145 H Calcium Magnesium Direct Bilirubin AST ALT Alkaline Phosphatase Total Creatine Kinase CK-MB (CK-2) CK-MB (CK-2) Rel Index Troponin T C-Reactive Protein Total Protein Albumin Triglycerides Ur Specific [place] Urine WBC (Auto) Miscellaneous Test 04/17/17 04/17/17 04/18/17 11:38 17:47 00:01 WBC RBC Hgb Hct MCV MCH Plt Count Lymph % (Auto) [place] % (Auto) Eos % (Auto) Baso % (Auto) Lymph # Baso # Seg Neutrophils % Lymphocytes % (Manual) Monocytes % (Manual) Nucleated RBC % Seg Neutrophils # Seg Neutrophils # Man Monocytes # (Manual) PT INR Activated Clotting Time POC ABG pH POC ABG pCO2 POC ABG pO2 Sodium Potassium Chloride Carbon Dioxide BUN Creatinine Glucose POC Glucose 170 H 161 H 131 H Calcium Magnesium Direct Bilirubin AST ALT Alkaline Phosphatase Total Creatine Kinase CK-MB (CK-2) CK-MB (CK-2) Rel Index Troponin T C-Reactive Protein Total Protein Albumin Triglycerides Ur Specific [place] Urine WBC (Auto) Miscellaneous Test 04/18/17 04/18/17 04/18/17 03:55 03:55 05:30 WBC RBC 3.05 L Hgb 9.8 L Hct 29.0 L MCV 95 H MCH Plt Count 113 L Lymph % (Auto) [place] % (Auto) Eos % (Auto) 5.3 H Baso % (Auto) Lymph # Baso # Seg Neutrophils % 71.5 H Lymphocytes % (Manual) Monocytes % (Manual) Nucleated RBC % Seg Neutrophils # Seg Neutrophils # Man Monocytes # (Manual) PT INR Activated Clotting Time POC ABG pH 7.460 H POC ABG pCO2 30.8 L POC ABG pO2 129 H Sodium Potassium Chloride Carbon Dioxide 21 L BUN 25 H Creatinine 0.4 L Glucose 123 H POC Glucose Calcium 8.3 L Magnesium Direct Bilirubin AST ALT Alkaline Phosphatase Total Creatine Kinase CK-MB (CK-2) CK-MB (CK-2) Rel Index Troponin T C-Reactive Protein Total Protein Albumin Triglycerides Ur Specific [place] Urine WBC (Auto) Miscellaneous Test 04/18/17 04/18/17 04/19/17 17:10 23:40 04:36 WBC RBC 3.21 L Hgb 10.2 L Hct 30.4 L MCV 95 H MCH Plt Count 131 L Lymph % (Auto) 12.1 L [place] % (Auto) Eos % (Auto) 4.7 H Baso % (Auto) 2.4 H Lymph # 0.9 L Baso # 0.2 H Seg Neutrophils % 75.0 H Lymphocytes % (Manual) Monocytes % (Manual) Nucleated RBC % Seg Neutrophils # Seg Neutrophils # Man Monocytes # (Manual) PT INR Activated Clotting Time POC ABG pH POC ABG pCO2 POC ABG pO2 Sodium Potassium Chloride Carbon Dioxide BUN Creatinine Glucose POC Glucose 135 H 157 H Calcium Magnesium Direct Bilirubin AST ALT Alkaline Phosphatase Total Creatine Kinase CK-MB (CK-2) CK-MB (CK-2) Rel Index Troponin T C-Reactive Protein Total Protein Albumin Triglycerides Ur Specific [place] Urine WBC (Auto) Miscellaneous Test 04/19/17 04/19/17 04/19/17 04:36 05:12 06:50 WBC RBC Hgb Hct MCV MCH Plt Count Lymph % (Auto) [place] % (Auto) Eos % (Auto) Baso % (Auto) Lymph # Baso # Seg Neutrophils % Lymphocytes % (Manual) Monocytes % (Manual) Nucleated RBC % Seg Neutrophils # Seg Neutrophils # Man Monocytes # (Manual) PT INR Activated Clotting Time POC ABG pH 7.516 H POC ABG pCO2 28.0 L POC ABG pO2 Sodium Potassium Chloride Carbon Dioxide 21 L BUN 23 H Creatinine 0.2 L Glucose 137 H POC Glucose 131 H Calcium 7.9 L Magnesium Direct Bilirubin AST ALT Alkaline Phosphatase Total Creatine Kinase CK-MB (CK-2) CK-MB (CK-2) Rel Index Troponin T C-Reactive Protein Total Protein Albumin Triglycerides Ur Specific [place] Urine WBC (Auto) Miscellaneous Test 04/19/17 04/19/17 04/20/17 12:36 17:42 00:12 WBC RBC Hgb Hct MCV MCH Plt Count Lymph % (Auto) [place] % (Auto) Eos % (Auto) Baso % (Auto) Lymph # Baso # Seg Neutrophils % Lymphocytes % (Manual) Monocytes % (Manual) Nucleated RBC % Seg Neutrophils # Seg Neutrophils # Man Monocytes # (Manual) PT INR Activated Clotting Time POC ABG pH POC ABG pCO2 POC ABG pO2 Sodium Potassium Chloride Carbon Dioxide BUN Creatinine Glucose POC Glucose 128 H 140 H 132 H Calcium Magnesium Direct Bilirubin AST ALT Alkaline Phosphatase Total Creatine Kinase CK-MB (CK-2) CK-MB (CK-2) Rel Index Troponin T C-Reactive Protein Total Protein Albumin Triglycerides Ur Specific [place] Urine WBC (Auto) Miscellaneous Test 04/20/17 04/20/17 04/20/17 03:35 03:35 05:10 WBC RBC 3.34 L Hgb 10.4 L Hct 31.6 L MCV 95 H MCH Plt Count Lymph % (Auto) 12.9 L [place] % (Auto) Eos % (Auto) Baso % (Auto) Lymph # Baso # Seg Neutrophils % 77.3 H Lymphocytes % (Manual) Monocytes % (Manual) Nucleated RBC % Seg Neutrophils # Seg Neutrophils # Man Monocytes # (Manual) PT INR Activated Clotting Time POC ABG pH POC ABG pCO2 POC ABG pO2 Sodium Potassium Chloride Carbon Dioxide BUN Creatinine 0.3 L Glucose 155 H POC Glucose 135 H Calcium 7.8 L Magnesium Direct Bilirubin AST ALT Alkaline Phosphatase Total Creatine Kinase CK-MB (CK-2) CK-MB (CK-2) Rel Index Troponin T C-Reactive Protein Total Protein Albumin Triglycerides Ur Specific [place] Urine WBC (Auto) Miscellaneous Test 04/20/17 04/20/17 04/21/17 12:49 18:21 00:05 WBC RBC Hgb Hct MCV MCH Plt Count Lymph % (Auto) [place] % (Auto) Eos % (Auto) Baso % (Auto) Lymph # Baso # Seg Neutrophils % Lymphocytes % (Manual) Monocytes % (Manual) Nucleated RBC % Seg Neutrophils # Seg Neutrophils # Man Monocytes # (Manual) PT INR Activated Clotting Time POC ABG pH POC ABG pCO2 POC ABG pO2 Sodium Potassium Chloride Carbon Dioxide BUN Creatinine Glucose POC Glucose 155 H 165 H 141 H Calcium Magnesium Direct Bilirubin AST ALT Alkaline Phosphatase Total Creatine Kinase CK-MB (CK-2) CK-MB (CK-2) Rel Index Troponin T C-Reactive Protein Total Protein Albumin Triglycerides Ur Specific [place] Urine WBC (Auto) Miscellaneous Test 04/21/17 04/21/17 04/21/17 06:00 12:11 17:04 WBC RBC Hgb Hct MCV MCH Plt Count Lymph % (Auto) [place] % (Auto) Eos % (Auto) Baso % (Auto) Lymph # Baso # Seg Neutrophils % Lymphocytes % (Manual) Monocytes % (Manual) Nucleated RBC % Seg Neutrophils # Seg Neutrophils # Man Monocytes # (Manual) PT INR Activated Clotting Time POC ABG pH POC ABG pCO2 POC ABG pO2 Sodium Potassium Chloride Carbon Dioxide BUN Creatinine Glucose POC Glucose 152 H 165 H 156 H Calcium Magnesium Direct Bilirubin AST ALT Alkaline Phosphatase Total Creatine Kinase CK-MB (CK-2) CK-MB (CK-2) Rel Index Troponin T C-Reactive Protein Total Protein Albumin Triglycerides Ur Specific [place] Urine WBC (Auto) Miscellaneous Test 04/21/17 04/21/17 04/22/17 22:00 23:59 05:49 WBC RBC Hgb Hct MCV MCH Plt Count Lymph % (Auto) [place] % (Auto) Eos % (Auto) Baso % (Auto) Lymph # Baso # Seg Neutrophils % Lymphocytes % (Manual) Monocytes % (Manual) Nucleated RBC % Seg Neutrophils # Seg Neutrophils # Man Monocytes # (Manual) PT INR Activated Clotting Time POC ABG pH POC ABG pCO2 POC ABG pO2 Sodium Potassium Chloride Carbon Dioxide BUN Creatinine Glucose POC Glucose 166 H 173 H Calcium Magnesium Direct Bilirubin AST ALT Alkaline Phosphatase Total Creatine Kinase CK-MB (CK-2) CK-MB (CK-2) Rel Index Troponin T C-Reactive Protein Total Protein Albumin Triglycerides Ur Specific [place] Urine WBC (Auto) 10.0 H Miscellaneous Test 04/22/17 04/22/17 04/23/17 11:11 18:04 00:37 WBC RBC Hgb Hct MCV MCH Plt Count Lymph % (Auto) [place] % (Auto) Eos % (Auto) Baso % (Auto) Lymph # Baso # Seg Neutrophils % Lymphocytes % (Manual) Monocytes % (Manual) Nucleated RBC % Seg Neutrophils # Seg Neutrophils # Man Monocytes # (Manual) PT INR Activated Clotting Time POC ABG pH POC ABG pCO2 POC ABG pO2 Sodium Potassium Chloride Carbon Dioxide BUN Creatinine Glucose POC Glucose 172 H 140 H 135 H Calcium Magnesium Direct Bilirubin AST ALT Alkaline Phosphatase Total Creatine Kinase CK-MB (CK-2) CK-MB (CK-2) Rel Index Troponin T C-Reactive Protein Total Protein Albumin Triglycerides Ur Specific [place] Urine WBC (Auto) Miscellaneous Test 04/23/17 04/23/17 04/23/17 05:33 06:20 11:10 WBC RBC 3.19 L Hgb 9.9 L Hct 30.0 L MCV MCH Plt Count Lymph % (Auto) 8.0 L [place] % (Auto) Eos % (Auto) Baso % (Auto) Lymph # 0.8 L Baso # Seg Neutrophils % 84.5 H Lymphocytes % (Manual) Monocytes % (Manual) Nucleated RBC % Seg Neutrophils # 8.2 H Seg Neutrophils # Man Monocytes # (Manual) PT INR Activated Clotting Time POC ABG pH POC ABG pCO2 POC ABG pO2 Sodium Potassium Chloride Carbon Dioxide BUN Creatinine Glucose POC Glucose 134 H 134 H Calcium Magnesium Direct Bilirubin AST ALT Alkaline Phosphatase Total Creatine Kinase CK-MB (CK-2) CK-MB (CK-2) Rel Index Troponin T C-Reactive Protein Total Protein Albumin Triglycerides Ur Specific [place] Urine WBC (Auto) Miscellaneous Test 04/23/17 04/24/17 04/24/17 17:26 00:53 06:46 WBC RBC Hgb Hct MCV MCH Plt Count Lymph % (Auto) [place] % (Auto) Eos % (Auto) Baso % (Auto) Lymph # Baso # Seg Neutrophils % Lymphocytes % (Manual) Monocytes % (Manual) Nucleated RBC % Seg Neutrophils # Seg Neutrophils # Man Monocytes # (Manual) PT INR Activated Clotting Time POC ABG pH POC ABG pCO2 POC ABG pO2 Sodium Potassium Chloride Carbon Dioxide BUN Creatinine Glucose POC Glucose 164 H 146 H 125 H Calcium Magnesium Direct Bilirubin AST ALT Alkaline Phosphatase Total Creatine Kinase CK-MB (CK-2) CK-MB (CK-2) Rel Index Troponin T C-Reactive Protein Total Protein Albumin Triglycerides Ur Specific [place] Urine WBC (Auto) Miscellaneous Test 04/24/17 04/24/17 04/24/17 11:55 17:50 23:36 WBC RBC Hgb Hct MCV MCH Plt Count Lymph % (Auto) [place] % (Auto) Eos % (Auto) Baso % (Auto) Lymph # Baso # Seg Neutrophils % Lymphocytes % (Manual) Monocytes % (Manual) Nucleated RBC % Seg Neutrophils # Seg Neutrophils # Man Monocytes # (Manual) PT INR Activated Clotting Time POC ABG pH POC ABG pCO2 POC ABG pO2 Sodium Potassium Chloride Carbon Dioxide BUN Creatinine Glucose POC Glucose 156 H 146 H 131 H Calcium Magnesium Direct Bilirubin AST ALT Alkaline Phosphatase Total Creatine Kinase CK-MB (CK-2) CK-MB (CK-2) Rel Index Troponin T C-Reactive Protein Total Protein Albumin Triglycerides Ur Specific [place] Urine WBC (Auto) Miscellaneous Test 04/25/17 04/25/17 04/25/17 04:51 05:16 07:07 WBC RBC Hgb Hct MCV MCH Plt Count Lymph % (Auto) [place] % (Auto) Eos % (Auto) Baso % (Auto) Lymph # Baso # Seg Neutrophils % Lymphocytes % (Manual) Monocytes % (Manual) Nucleated RBC % Seg Neutrophils # Seg Neutrophils # Man Monocytes # (Manual) PT INR Activated Clotting Time POC ABG pH POC ABG pCO2 POC ABG pO2 Sodium Potassium Chloride Carbon Dioxide BUN Creatinine Glucose POC Glucose 139 H Calcium Magnesium Direct Bilirubin AST 105 H ALT 204 H Alkaline Phosphatase 189 H Total Creatine Kinase CK-MB (CK-2) CK-MB (CK-2) Rel Index Troponin T C-Reactive Protein Total Protein Albumin 2.4 L Triglycerides Ur Specific [place] Urine WBC (Auto) Miscellaneous Test Flexitest 1 H 04/25/17 04/25/17 04/25/17 12:29 17:23 23:32 WBC RBC Hgb Hct MCV MCH Plt Count Lymph % (Auto) [place] % (Auto) Eos % (Auto) Baso % (Auto) Lymph # Baso # Seg Neutrophils % Lymphocytes % (Manual) Monocytes % (Manual) Nucleated RBC % Seg Neutrophils # Seg Neutrophils # Man Monocytes # (Manual) PT INR Activated Clotting Time POC ABG pH POC ABG pCO2 POC ABG pO2 Sodium Potassium Chloride Carbon Dioxide BUN Creatinine Glucose POC Glucose 132 H 133 H 128 H Calcium Magnesium Direct Bilirubin AST ALT Alkaline Phosphatase Total Creatine Kinase CK-MB (CK-2) CK-MB (CK-2) Rel Index Troponin T C-Reactive Protein Total Protein Albumin Triglycerides Ur Specific [place] Urine WBC (Auto) Miscellaneous Test 04/26/17 04/26/17 04/26/17 05:24 11:28 17:09 WBC RBC Hgb Hct MCV MCH Plt Count Lymph % (Auto) [place] % (Auto) Eos % (Auto) Baso % (Auto) Lymph # Baso # Seg Neutrophils % Lymphocytes % (Manual) Monocytes % (Manual) Nucleated RBC % Seg Neutrophils # Seg Neutrophils # Man Monocytes # (Manual) PT INR Activated Clotting Time POC ABG pH POC ABG pCO2 POC ABG pO2 Sodium Potassium Chloride Carbon Dioxide BUN Creatinine Glucose POC Glucose 132 H 146 H 141 H Calcium Magnesium Direct Bilirubin AST ALT Alkaline Phosphatase Total Creatine Kinase CK-MB (CK-2) CK-MB (CK-2) Rel Index Troponin T C-Reactive Protein Total Protein Albumin Triglycerides Ur Specific [place] Urine WBC (Auto) Miscellaneous Test 04/26/17 04/27/17 04/27/17 23:52 05:40 05:40 WBC RBC 3.22 L Hgb 10.0 L Hct 29.9 L MCV MCH Plt Count Lymph % (Auto) [place] % (Auto) Eos % (Auto) Baso % (Auto) Lymph # Baso # Seg Neutrophils % 76.6 H Lymphocytes % (Manual) Monocytes % (Manual) Nucleated RBC % Seg Neutrophils # Seg Neutrophils # Man Monocytes # (Manual) PT INR Activated Clotting Time POC ABG pH POC ABG pCO2 POC ABG pO2 Sodium Potassium Chloride Carbon Dioxide BUN Creatinine Glucose POC Glucose 140 H Calcium Magnesium Direct Bilirubin AST 66 H ALT 137 H Alkaline Phosphatase 169 H Total Creatine Kinase CK-MB (CK-2) CK-MB (CK-2) Rel Index Troponin T C-Reactive Protein Total Protein 6.2 L Albumin 2.6 L Triglycerides Ur Specific [place] Urine WBC (Auto) Miscellaneous Test 04/27/17 04/27/17 04/27/17 05:40 06:10 11:13 WBC RBC Hgb Hct MCV MCH Plt Count Lymph % (Auto) [place] % (Auto) Eos % (Auto) Baso % (Auto) Lymph # Baso # Seg Neutrophils % Lymphocytes % (Manual) Monocytes % (Manual) Nucleated RBC % Seg Neutrophils # Seg Neutrophils # Man Monocytes # (Manual) PT INR Activated Clotting Time POC ABG pH POC ABG pCO2 POC ABG pO2 Sodium Potassium Chloride Carbon Dioxide BUN Creatinine 0.2 L Glucose 139 H POC Glucose 130 H 151 H Calcium Magnesium Direct Bilirubin AST ALT Alkaline Phosphatase Total Creatine Kinase CK-MB (CK-2) CK-MB (CK-2) Rel Index Troponin T C-Reactive Protein Total Protein Albumin Triglycerides Ur Specific [place] Urine WBC (Auto) Miscellaneous Test 04/27/17 04/27/17 04/28/17 17:37 23:19 05:24 WBC RBC Hgb Hct MCV MCH Plt Count Lymph % (Auto) [place] % (Auto) Eos % (Auto) Baso % (Auto) Lymph # Baso # Seg Neutrophils % Lymphocytes % (Manual) Monocytes % (Manual) Nucleated RBC % Seg Neutrophils # Seg Neutrophils # Man Monocytes # (Manual) PT INR Activated Clotting Time POC ABG pH POC ABG pCO2 POC ABG pO2 Sodium Potassium Chloride Carbon Dioxide BUN Creatinine Glucose POC Glucose 159 H 130 H 132 H Calcium Magnesium Direct Bilirubin AST ALT Alkaline Phosphatase Total Creatine Kinase CK-MB (CK-2) CK-MB (CK-2) Rel Index Troponin T C-Reactive Protein Total Protein Albumin Triglycerides Ur Specific [place] Urine WBC (Auto) Miscellaneous Test 04/28/17 04/28/17 04/28/17 11:15 17:38 23:23 WBC RBC Hgb Hct MCV MCH Plt Count Lymph % (Auto) [place] % (Auto) Eos % (Auto) Baso % (Auto) Lymph # Baso # Seg Neutrophils % Lymphocytes % (Manual) Monocytes % (Manual) Nucleated RBC % Seg Neutrophils # Seg Neutrophils # Man Monocytes # (Manual) PT INR Activated Clotting Time POC ABG pH POC ABG pCO2 POC ABG pO2 Sodium Potassium Chloride Carbon Dioxide BUN Creatinine Glucose POC Glucose 162 H 133 H 138 H Calcium Magnesium Direct Bilirubin AST ALT Alkaline Phosphatase Total Creatine Kinase CK-MB (CK-2) CK-MB (CK-2) Rel Index Troponin T C-Reactive Protein Total Protein Albumin Triglycerides Ur Specific [place] Urine WBC (Auto) Miscellaneous Test 04/29/17 04/29/17 04/29/17 05:15 12:55 17:21 WBC RBC Hgb Hct MCV MCH Plt Count Lymph % (Auto) [place] % (Auto) Eos % (Auto) Baso % (Auto) Lymph # Baso # Seg Neutrophils % Lymphocytes % (Manual) Monocytes % (Manual) Nucleated RBC % Seg Neutrophils # Seg Neutrophils # Man Monocytes # (Manual) PT INR Activated Clotting Time POC ABG pH POC ABG pCO2 POC ABG pO2 Sodium Potassium Chloride Carbon Dioxide BUN Creatinine Glucose POC Glucose 135 H 127 H 138 H Calcium Magnesium Direct Bilirubin AST ALT Alkaline Phosphatase Total Creatine Kinase CK-MB (CK-2) CK-MB (CK-2) Rel Index Troponin T C-Reactive Protein Total Protein Albumin Triglycerides Ur Specific [place] Urine WBC (Auto) Miscellaneous Test 04/29/17 04/30/17 04/30/17 23:52 04:55 12:22 WBC RBC Hgb Hct MCV MCH Plt Count Lymph % (Auto) [place] % (Auto) Eos % (Auto) Baso % (Auto) Lymph # Baso # Seg Neutrophils % Lymphocytes % (Manual) Monocytes % (Manual) Nucleated RBC % Seg Neutrophils # Seg Neutrophils # Man Monocytes # (Manual) PT INR Activated Clotting Time POC ABG pH POC ABG pCO2 POC ABG pO2 Sodium Potassium Chloride Carbon Dioxide BUN Creatinine Glucose POC Glucose 142 H 146 H 132 H Calcium Magnesium Direct Bilirubin AST ALT Alkaline Phosphatase Total Creatine Kinase CK-MB (CK-2) CK-MB (CK-2) Rel Index Troponin T C-Reactive Protein Total Protein Albumin Triglycerides Ur Specific [place] Urine WBC (Auto) Miscellaneous Test 04/30/17 04/30/17 04/30/17 14:25 17:47 18:20 WBC RBC Hgb Hct MCV MCH Plt Count Lymph % (Auto) [place] % (Auto) Eos % (Auto) Baso % (Auto) Lymph # Baso # Seg Neutrophils % Lymphocytes % (Manual) Monocytes % (Manual) Nucleated RBC % Seg Neutrophils # Seg Neutrophils # Man Monocytes # (Manual) PT INR Activated Clotting Time POC ABG pH 7.551 H POC ABG pCO2 32.7 L POC ABG pO2 Sodium Potassium Chloride Carbon Dioxide BUN 21 H Creatinine 0.2 L Glucose 141 H POC Glucose 139 H Calcium Magnesium Direct Bilirubin AST ALT Alkaline Phosphatase Total Creatine Kinase CK-MB (CK-2) CK-MB (CK-2) Rel Index Troponin T C-Reactive Protein Total Protein Albumin Triglycerides Ur Specific [place] Urine WBC (Auto) Miscellaneous Test 05/01/17 05/01/17 05/01/17 01:26 05:30 05:30 WBC RBC 3.49 L Hgb 10.3 L Hct 31.9 L MCV MCH Plt Count Lymph % (Auto) [place] % (Auto) 8.1 H Eos % (Auto) Baso % (Auto) Lymph # Baso # Seg Neutrophils % 71.3 H Lymphocytes % (Manual) Monocytes % (Manual) Nucleated RBC % Seg Neutrophils # Seg Neutrophils # Man Monocytes # (Manual) PT INR Activated Clotting Time POC ABG pH POC ABG pCO2 POC ABG pO2 Sodium 136 L Potassium Chloride 97.6 L Carbon Dioxide BUN Creatinine 0.2 L Glucose 123 H POC Glucose 116 H Calcium Magnesium Direct Bilirubin AST 71 H ALT 125 H Alkaline Phosphatase 158 H Total Creatine Kinase CK-MB (CK-2) CK-MB (CK-2) Rel Index Troponin T C-Reactive Protein Total Protein Albumin 2.6 L Triglycerides Ur Specific [place] Urine WBC (Auto) Miscellaneous Test 05/01/17 05/01/17 05/02/17 11:59 17:23 00:08 WBC RBC Hgb Hct MCV MCH Plt Count Lymph % (Auto) [place] % (Auto) Eos % (Auto) Baso % (Auto) Lymph # Baso # Seg Neutrophils % Lymphocytes % (Manual) Monocytes % (Manual) Nucleated RBC % Seg Neutrophils # Seg Neutrophils # Man Monocytes # (Manual) PT INR Activated Clotting Time POC ABG pH POC ABG pCO2 POC ABG pO2 Sodium Potassium Chloride Carbon Dioxide BUN Creatinine Glucose POC Glucose 118 H 144 H 122 H Calcium Magnesium Direct Bilirubin AST ALT Alkaline Phosphatase Total Creatine Kinase CK-MB (CK-2) CK-MB (CK-2) Rel Index Troponin T C-Reactive Protein Total Protein Albumin Triglycerides Ur Specific [place] Urine WBC (Auto) Miscellaneous Test 05/02/17 05/02/17 05/02/17 05:50 11:21 17:48 WBC RBC Hgb Hct MCV MCH Plt Count Lymph % (Auto) [place] % (Auto) Eos % (Auto) Baso % (Auto) Lymph # Baso # Seg Neutrophils % Lymphocytes % (Manual) Monocytes % (Manual) Nucleated RBC % Seg Neutrophils # Seg Neutrophils # Man Monocytes # (Manual) PT INR Activated Clotting Time POC ABG pH POC ABG pCO2 POC ABG pO2 Sodium Potassium Chloride Carbon Dioxide BUN Creatinine Glucose POC Glucose 120 H 121 H 140 H Calcium Magnesium Direct Bilirubin AST ALT Alkaline Phosphatase Total Creatine Kinase CK-MB (CK-2) CK-MB (CK-2) Rel Index Troponin T C-Reactive Protein Total Protein Albumin Triglycerides Ur Specific [place] Urine WBC (Auto) Miscellaneous Test 05/02/17 05/03/17 23:12 05:35 WBC RBC Hgb Hct MCV MCH Plt Count Lymph % (Auto) [place] % (Auto) Eos % (Auto) Baso % (Auto) Lymph # Baso # Seg Neutrophils % Lymphocytes % (Manual) Monocytes % (Manual) Nucleated RBC % Seg Neutrophils # Seg Neutrophils # Man Monocytes # (Manual) PT INR Activated Clotting Time POC ABG pH POC ABG pCO2 POC ABG pO2 Sodium Potassium Chloride Carbon Dioxide BUN Creatinine Glucose POC Glucose 128 H 113 H Calcium Magnesium Direct Bilirubin AST ALT Alkaline Phosphatase Total Creatine Kinase CK-MB (CK-2) CK-MB (CK-2) Rel Index Troponin T C-Reactive Protein Total Protein Albumin Triglycerides Ur Specific [place] Urine WBC (Auto) Miscellaneous Test
[2017-05-03] MEDS: PLAVIX PO SCH (10:55)
[2017-05-03] MEDS: ZESTRIL PO SCH (10:56)
[2017-05-03] MEDS: HEPARIN SUB-Q SCH ×2 (10:56→22:05)
[2017-05-03] MEDS: CORDARONE PO SCH ×2 (10:56→22:05)
[2017-05-03] MEDS: PROTONIX FEEDTUBE SCH (10:56)
[2017-05-03] MEDS: ASPIRIN PO SCH (10:56)
--- NOTE | 2017-05-03 11:57 | Progress Note ---
Assessment and Plan Assessment and plan: 46 YO Male with No PMH presents to ED for evaluation. Pt is unresponsive and unable to provide history. Pt history taken from ED staff and EMS. Pt was at work today and suddenly passed out around 1050 hrs-which was witnessed by patients coworkers. EMS notified, and upon arrival the patient was found to have V Fib. Pt treated IAW ACLS protocol. The patient was given 3 defibrillations, 2 rounds of epinephrine, Narcan, and a half amp of sodium bicarbonate. Pt found to be in respiratory distress and was intubated and placed on vent support. Cardiology team notified, and patient was taken urgently to dairy and food laboratory assistant, and admitted to ICU. anoxic brain injury/anoxic encephalopathy/Persistent Vegetative State sp trache and PEG -awaiting insurance/medicare disability application for LTACH or SNF placement Acute Respiratory failure requiring MV >96 hours sp trache, vent dependent Anterior STEMI sp cardiac arrest with V fib Emergency cath protocol called upon arrival, we found 100% occlusion of the LAD in its prox-mid segment. Successful primari PCI-angioplasty and 3.0-3.5mm BM stents deployed. LAD flow restored-excellent result. continue medical management Aspiration PNA due to MRSA/Gram positive Sepsis completed course of abx cardiogenic Shock -now resolved Sepsis/Right lower lobe aspiration pneumonia, most likely due to gram-positive bacteria completed course of abx Hypokalemia repleted, Now resolved Hypernatremia/dehydration/free water deficit resolved with Free water replacement --Severe Protein calorie malnutrition: Peg feeds and nutrition suppliments Disposition; possible transfer to LTAC/SNF Very difficult to place, secondary to no payor source The high probability of a clinically significant, sudden or life threatening deterioration of the [Pulmonary, cardiac, renal] system(s) required my full and direct attention, intervention and personal management. The aggregate critical care time was [65] minutes. This time is in addition to time spent performing reported procedures but includes the following: [x] Data Review and interpretation [x] Patient assessment and monitoring of vital signs [x] Documentation [x] Medication orders and management History Interval history: Patient is nonresponsive, lacks most reflexes, had fever, no vomiting, no agitation Hospitalist Physical - Physical exam Narrative exam: General.: Comatose breathes over the vent HEENT: Moist mucous membranes, no LAD, Neck: supple Cardiac: S1-S2 heard Lungs: clear to auscultation bilaterally Abdomen: soft , nontender, nondistended, bowel sounds positive Extremities: no edema clubbing or cyanosis Skin: no rash or lesions Neurologic: Patient is in deep coma, lacks most reflexes, at this time, only has gag reflexs, corneal reflex is absent and decerebrate posturing, pupils are fixed and non reactive, lacks all other reflexes, opens eyes spontaneously - Constitutional Vitals: Temp Pulse Resp BP Pulse Ox 98.6 F 92 H 17 99/61 99 05/03/17 08:00 05/03/17 10:56 05/03/17 10:00 05/03/17 10:56 05/03/17 10:00 General appearance: Present: no acute distress, well-nourished, other ( tracheostomy on ventilatory support) Results - Labs CBC & Chem 7: 05/01/17 05:30 05/01/17 05:30 Labs: Laboratory Last Values WBC 7.8 K/mm3 (4.5-11.0) 05/01/17 05:30 RBC 3.49 M/mm3 (3.65-5.03) L 05/01/17 05:30 Hgb 10.3 gm/dl (11.8-15.2) L 05/01/17 05:30 Hct 31.9 % (35.5-45.6) L 05/01/17 05:30 MCV 92 fl (84-94) 05/01/17 05:30 MCH 30 pg (28-32) 05/01/17 05:30 MCHC 32 % (32-34) 05/01/17 05:30 RDW 15.1 % (13.2-15.2) 05/01/17 05:30 Plt Count 280 K/mm3 (140-440) 05/01/17 05:30 Lymph % (Auto) 17.7 % (13.4-35.0) 05/01/17 05:30 [place] % (Auto) 8.1 % (0.0-7.3) H 05/01/17 05:30 Eos % (Auto) 2.5 % (0.0-4.3) 05/01/17 05:30 Baso % (Auto) 0.4 % (0.0-1.8) 05/01/17 05:30 Lymph # 1.4 K/mm3 (1.2-5.4) 05/01/17 05:30 [place] # 0.6 K/mm3 (0.0-0.8) 05/01/17 05:30 Eos # 0.2 K/mm3 (0.0-0.4) 05/01/17 05:30 Baso # 0.0 K/mm3 (0.0-0.1) 05/01/17 05:30 Add Manual Diff Complete 03/30/17 03:50 Total Counted 100 03/30/17 03:50 Seg Neutrophils % 71.3 % (40.0-70.0) H 05/01/17 05:30 Seg Neuts % (Manual) 65.0 % (40.0-70.0) 03/30/17 03:50 Band Neutrophils % 17.0 % 03/30/17 03:50 Lymphocytes % (Manual) 7.0 % (13.4-35.0) L 03/30/17 03:50 Reactive Lymphs % (Man) 0 % 03/30/17 03:50 Monocytes % (Manual) 7.0 % (0.0-7.3) 03/30/17 03:50 Eosinophils % (Manual) 0 % (0.0-4.3) 03/30/17 03:50 Basophils % (Manual) 0 % (0.0-1.8) 03/30/17 03:50 Metamyelocytes % 4.0 % 03/30/17 03:50 Myelocytes % 0 % 03/30/17 03:50 Promyelocytes % 0 % 03/30/17 03:50 Blast Cells % 0 % 03/30/17 03:50 Nucleated RBC % Not Reportable 03/30/17 03:50 Seg Neutrophils # 5.6 K/mm3 (1.8-7.7) 05/01/17 05:30 Seg Neutrophils # Man 12.7 K/mm3 (1.8-7.7) H 03/30/17 03:50 Band Neutrophils # 3.3 K/mm3 03/30/17 03:50 Lymphocytes # (Manual) 1.4 K/mm3 (1.2-5.4) 03/30/17 03:50 Abs React Lymphs (Man) 0.0 K/mm3 03/30/17 03:50 Monocytes # (Manual) 1.4 K/mm3 (0.0-0.8) H 03/30/17 03:50 Eosinophils # (Manual) 0.0 K/mm3 (0.0-0.4) 03/30/17 03:50 Basophils # (Manual) 0.0 K/mm3 (0.0-0.1) 03/30/17 03:50 Metamyelocytes # 0.8 K/mm3 03/30/17 03:50 Myelocytes # 0.0 K/mm3 03/30/17 03:50 Promyelocytes # 0.0 K/mm3 03/30/17 03:50 Blast Cells # 0.0 K/mm3 03/30/17 03:50 WBC Morphology Not Reportable 03/30/17 03:50 Hypersegmented Neuts Not Reportable 03/30/17 03:50 Hyposegmented Neuts Not Reportable 03/30/17 03:50 Hypogranular Neuts Not Reportable 03/30/17 03:50 Smudge Cells Not Reportable 03/30/17 03:50 Toxic Granulation Not Reportable 03/30/17 03:50 Toxic Vacuolation Not Reportable 03/30/17 03:50 Dohle Bodies Not Reportable 03/30/17 03:50 Pelger-Huet Anomaly Not Reportable 03/30/17 03:50 Sherry Rods Not Reportable 03/30/17 03:50 Platelet Estimate Appears normal 03/30/17 03:50 Clumped Platelets Not Reportable 03/30/17 03:50 Plt Clumps, EDTA Not Reportable 03/30/17 03:50 Large Platelets Not Reportable 03/30/17 03:50 Giant Platelets Not Reportable 03/30/17 03:50 Platelet Satelliting Not Reportable 03/30/17 03:50 Plt Morphology Comment Not Reportable 03/30/17 03:50 RBC Morphology Not Reportable 03/30/17 03:50 Dimorphic RBCs Not Reportable 03/30/17 03:50 Polychromasia Not Reportable 03/30/17 03:50 Hypochromasia Not Reportable 03/30/17 03:50 Poikilocytosis Not Reportable 03/30/17 03:50 Anisocytosis Few 03/30/17 03:50 Microcytosis Not Reportable 03/30/17 03:50 Macrocytosis Not Reportable 03/30/17 03:50 Spherocytes Not Reportable 03/30/17 03:50 Pappenheimer Bodies Not Reportable 03/30/17 03:50 Sickle Cells Not Reportable 03/30/17 03:50 Target Cells Not Reportable 03/30/17 03:50 Tear Drop Cells Not Reportable 03/30/17 03:50 Ovalocytes Not Reportable 03/30/17 03:50 Helmet Cells Not Reportable 03/30/17 03:50 Tamayo-Sibley Bodies Not Reportable 03/30/17 03:50 [place] Rings Not Reportable 03/30/17 03:50 [place] Cells Not Reportable 03/30/17 03:50 Bite Cells Not Reportable 03/30/17 03:50 Crenated Cell Not Reportable 03/30/17 03:50 Elliptocytes Not Reportable 03/30/17 03:50 Acanthocytes (Spur) Not Reportable 03/30/17 03:50 Rouleaux Not Reportable 03/30/17 03:50 Hemoglobin C Crystals Not Reportable 03/30/17 03:50 Schistocytes Not Reportable 03/30/17 03:50 Malaria parasites Not Reportable 03/30/17 03:50 [place]erm[place] Bodies Not Reportable 03/30/17 03:50 Hem Pathologist Commnt No 03/30/17 03:50 PT 14.9 Sec. (12.2-14.9) 04/10/17 04:16 INR 1.11 (0.87-1.13) 04/10/17 04:16 APTT 27.8 Sec. (24.2-36.6) 04/10/17 04:16 Activated Clotting Time 92 (74-137) 03/29/17 17:47 POC ABG pH 7.551 (7.35-7.45) H 04/30/17 18:20 POC ABG pCO2 32.7 (35-45) L 04/30/17 18:20 POC ABG pO2 101 (80-105) 04/30/17 18:20 POC ABG HCO3 28.7 04/30/17 18:20 POC ABG Total CO2 30 04/30/17 18:20 POC ABG O2 Sat 99 04/30/17 18:20 POC ABG Base Excess 6 04/30/17 18:20 FiO2 30 % 04/30/17 18:20 Sodium 136 mmol/L (137-145) L 05/01/17 05:30 Potassium 3.9 mmol/L (3.6-5.0) 05/01/17 05:30 Chloride 97.6 mmol/L (98-107) L 05/01/17 05:30 Carbon Dioxide 25 mmol/L (22-30) 05/01/17 05:30 Anion Gap 17 mmol/L 05/01/17 05:30 BUN 16 mg/dL (9-20) 05/01/17 05:30 Creatinine 0.2 mg/dL (0.8-1.5) L 05/01/17 05:30 Estimated GFR > 60 ml/min 05/01/17 05:30 BUN/Creatinine Ratio 80 % 05/01/17 05:30 Glucose 123 mg/dL (75-100) H 05/01/17 05:30 POC Glucose 113 (70-105) H 05/03/17 05:35 Calcium 8.9 mg/dL (8.4-10.2) 05/01/17 05:30 Phosphorus 3.50 mg/dL (2.5-4.5) 04/13/17 04:45 Magnesium 1.80 mg/dL (1.7-2.3) 05/01/17 05:30 Total Bilirubin 0.60 mg/dL (0.1-1.2) 05/01/17 05:30 Direct Bilirubin < 0.2 mg/dL (0-0.2) 04/27/17 05:40 Indirect Bilirubin 0.3 mg/dL 04/25/17 04:51 AST 71 units/L (5-40) H 05/01/17 05:30 ALT 125 units/L (7-56) H 05/01/17 05:30 Alkaline Phosphatase 158 units/L (35-129) H 05/01/17 05:30 Total Creatine Kinase 1404 units/L (55-170) H 04/12/17 21:36 CK-MB (CK-2) 8.0 ng/mL (0.0-4.0) H 04/12/17 21:36 CK-MB (CK-2) Rel Index 0.5 (0-4) 04/12/17 21:36 Troponin T 0.767 ng/mL (0.00-0.029) H* 04/12/17 21:36 C-Reactive Protein 21.80 mg/dL (0.00-1.30) H 03/30/17 16:04 Total Protein 6.7 g/dL (6.3-8.2) 05/01/17 05:30 Albumin 2.6 g/dL (3.9-5) L 05/01/17 05:30 Albumin/Globulin Ratio 0.6 % 05/01/17 05:30 Triglycerides 151 mg/dL (2-149) H 04/01/17 04:29 Cholesterol 164 mg/dL (50-199) 03/29/17 19:52 LDL Cholesterol Direct 81 mg/dL (50-130) 03/29/17 19:52 HDL Cholesterol 44 mg/dL (40-59) 03/29/17 19:52 Cholesterol/HDL Ratio 3.72 % 03/29/17 19:52 Urine Color [place] (Yellow) 04/21/17 22:00 Urine Turbidity Clear (Clear) 04/21/17 22:00 Urine pH 5.0 (5.0-7.0) 04/21/17 22:00 Ur Specific [place] 1.029 (1.003-1.030) 04/21/17 22:00 Urine Protein 30 mg/dl mg/dL (Negative) 04/21/17 22:00 Urine Glucose (UA) Neg mg/dL (Negative) 04/21/17 22:00 Urine Ketones Neg mg/dL (Negative) 04/21/17 22:00 Urine Blood Mod (Negative) 04/21/17 22:00 Urine Nitrite Neg (Negative) 04/21/17 22:00 Urine Bilirubin Neg (Negative) 04/21/17 22:00 Urine Urobilinogen 4.0 mg/dL (<2.0) 04/21/17 22:00 Ur Leukocyte Esterase Neg (Negative) 04/21/17 22:00 Urine WBC (Auto) 10.0 /HPF (0.0-6.0) H 04/21/17 22:00 Urine RBC (Auto) 44.0 /HPF (0.0-6.0) 04/21/17 22:00 U Epithel Cells (Auto) < 1.0 /HPF (0-13.0) 04/21/17 22:00 Amorphous Crystals 1+ 03/30/17 09:45 Urine Mucus 3+ /HPF 04/21/17 22:00 Urine Opiates Screen Presumptive negative 03/30/17 09:45 Urine Methadone Screen Presumptive negative 03/30/17 09:45 Ur Barbiturates Screen Presumptive negative 03/30/17 09:45 Ur Phencyclidine Scrn Presumptive negative 03/30/17 09:45 Ur Amphetamines Screen Presumptive positive 03/30/17 09:45 U Benzodiazepines Scrn Presumptive positive 03/30/17 09:45 Urine Cocaine Screen Presumptive negative 03/30/17 09:45 U Marijuana (THC) Screen Presumptive negative 03/30/17 09:45 Drugs of Abuse Note Disclamer 03/30/17 09:45 Miscellaneous Test Flexitest 1 H 04/25/17 07:07 Blood Type O POSITIVE 03/29/17 11:35 Antibody Screen Negative 03/29/17 11:35
[2017-05-04] MEDS: LOPRESSOR PO SCH ×4 (00:05→17:44)
[2017-05-04] MEDS: NOVOLOG SUB-Q SCH ×4 (00:05→17:43)
[2017-05-04] MEDS: ASPIRIN PO SCH (09:25)
[2017-05-04] MEDS: PROTONIX FEEDTUBE SCH (09:25)
[2017-05-04] MEDS: CORDARONE PO SCH ×2 (09:26→23:03)
[2017-05-04] MEDS: HEPARIN SUB-Q SCH ×2 (09:27→23:04)
[2017-05-04] MEDS: PLAVIX PO SCH (09:28)
--- NOTE | 2017-05-04 10:03 | Progress Note ---
Assessment and Plan Out of hospital Vfib arrest Hypoxic encephalopathy. No major changes clinically. Off sedation STEMI Prior x-rays with residual infiltrate, possibly residual vascular congestion.Chest clear s/p LHC with stent placement Sputum culture positive for MRSA. Prior infiltrate RLL Recommendations Continue PSV/CPAP trials- currently tolerating little, due to apneas, hypoventilation events Monitor for fever Trach care suction Prognosis at this point still not good for chcf recovery Recommend updating advanced family. Critical care time with a 31 minutes of [id number] evaluation and coordination of care Subjective Date of service: 05/04/17 Principal diagnosis: Acute LA Interval history: Off Sedation. Intubated Objective Vital Signs - 12hr 05/03/17 05/04/17 05/04/17 23:44 00:00 01:30 Temperature 98.6 F Pulse Rate 99 H 94 H Respiratory 25 H Rate Blood Pressure 102/65 O2 Sat by Pulse 99 Oximetry 05/04/17 05/04/17 05/04/17 02:00 03:26 04:00 Temperature 97.2 F L 98.6 F Pulse Rate 98 H 96 H Respiratory 23 23 Rate Blood Pressure 102/65 101/63 O2 Sat by Pulse 98 99 Oximetry 05/04/17 05/04/17 05:02 06:00 Temperature Pulse Rate 98 H 98 H Respiratory 22 Rate Blood Pressure 101/63 96/59 O2 Sat by Pulse 97 95 Oximetry Constitutional: no acute distress, other Eyes: non-icteric ENT: oropharynx moist Neck: supple, no JVD, other (tracheotomy in position) Effort: normal Ascultation: Bilateral: clear, diminished breath sounds Percussion: Bilateral: not dull Cardiovascular: regular rate and rhythm Gastrointestinal: normoactive bowel sounds, soft, non-tender, non-distended Integumentary: normal Extremities: no cyanosis, no edema, pink and warm Neurologic: other ( deep stupor, some spontaneous eye opening but no response to call, otherwise unchaged. ) Psychiatric: other (unable to assess) CBC and BMP: 05/01/17 05:30 05/01/17 05:30 ABG, PT/INR, D-dimer: ABG POC ABG pH 7.551 (7.35-7.45) H 04/30/17 18:20 POC ABG pCO2 32.7 (35-45) L 04/30/17 18:20 POC ABG pO2 101 (80-105) 04/30/17 18:20 POC ABG HCO3 28.7 04/30/17 18:20 POC ABG Total CO2 30 04/30/17 18:20 POC ABG O2 Sat 99 04/30/17 18:20 PT/INR, D-dimer PT 14.9 Sec. (12.2-14.9) 04/10/17 04:16 INR 1.11 (0.87-1.13) 04/10/17 04:16 Abnormal lab findings: Abnormal Labs 03/29/17 03/29/17 03/29/17 11:35 11:35 11:40 WBC RBC Hgb Hct MCV 98 H MCH 33 H Plt Count Lymph % (Auto) [place] % (Auto) Eos % (Auto) Baso % (Auto) Lymph # Baso # Seg Neutrophils % Lymphocytes % (Manual) Monocytes % (Manual) 9.0 H Nucleated RBC % 1.0 H Seg Neutrophils # Seg Neutrophils # Man Monocytes # (Manual) 0.9 H PT 15.8 H INR 1.20 H Activated Clotting Time POC ABG pH POC ABG pCO2 POC ABG pO2 Sodium Potassium 2.7 L* Chloride 95.3 L Carbon Dioxide 17 L BUN Creatinine Glucose 435 H POC Glucose Calcium Magnesium Direct Bilirubin AST ALT Alkaline Phosphatase Total Creatine Kinase CK-MB (CK-2) CK-MB (CK-2) Rel Index Troponin T C-Reactive Protein Total Protein 6.1 L Albumin 3.5 L Triglycerides Ur Specific [place] Urine WBC (Auto) Miscellaneous Test 03/29/17 03/29/17 03/29/17 12:34 13:10 13:25 WBC RBC Hgb Hct MCV MCH Plt Count Lymph % (Auto) [place] % (Auto) Eos % (Auto) Baso % (Auto) Lymph # Baso # Seg Neutrophils % Lymphocytes % (Manual) Monocytes % (Manual) Nucleated RBC % Seg Neutrophils # Seg Neutrophils # Man Monocytes # (Manual) PT INR Activated Clotting Time 142 H 169 H 175 H POC ABG pH POC ABG pCO2 POC ABG pO2 Sodium Potassium Chloride Carbon Dioxide BUN Creatinine Glucose POC Glucose Calcium Magnesium Direct Bilirubin AST ALT Alkaline Phosphatase Total Creatine Kinase CK-MB (CK-2) CK-MB (CK-2) Rel Index Troponin T C-Reactive Protein Total Protein Albumin Triglycerides Ur Specific [place] Urine WBC (Auto) Miscellaneous Test 03/29/17 03/29/17 03/29/17 14:50 15:18 19:52 WBC RBC Hgb Hct MCV MCH Plt Count Lymph % (Auto) [place] % (Auto) Eos % (Auto) Baso % (Auto) Lymph # Baso # Seg Neutrophils % Lymphocytes % (Manual) Monocytes % (Manual) Nucleated RBC % Seg Neutrophils # Seg Neutrophils # Man Monocytes # (Manual) PT INR Activated Clotting Time 175 H POC ABG pH 7.293 L POC ABG pCO2 POC ABG pO2 602 H Sodium Potassium Chloride Carbon Dioxide BUN Creatinine Glucose POC Glucose Calcium Magnesium Direct Bilirubin AST ALT Alkaline Phosphatase Total Creatine Kinase 7263 H CK-MB (CK-2) > 300.0 H CK-MB (CK-2) Rel Index 4.1 H Troponin T 8.080 H* D C-Reactive Protein Total Protein Albumin Triglycerides 195 H Ur Specific [place] Urine WBC (Auto) Miscellaneous Test 03/30/17 03/30/17 03/30/17 03:50 03:50 06:19 WBC 19.5 H RBC Hgb Hct MCV MCH Plt Count Lymph % (Auto) [place] % (Auto) Eos % (Auto) Baso % (Auto) Lymph # Baso # Seg Neutrophils % Lymphocytes % (Manual) 7.0 L Monocytes % (Manual) Nucleated RBC % Seg Neutrophils # Seg Neutrophils # Man 12.7 H Monocytes # (Manual) 1.4 H PT INR Activated Clotting Time POC ABG pH POC ABG pCO2 28.2 L POC ABG pO2 108 H Sodium Potassium Chloride 108.9 H Carbon Dioxide 15 L BUN 25 H Creatinine Glucose 158 H POC Glucose Calcium 8.1 L Magnesium Direct Bilirubin AST ALT Alkaline Phosphatase Total Creatine Kinase 7963 H CK-MB (CK-2) > 300.0 H CK-MB (CK-2) Rel Index Troponin T 6.850 H* C-Reactive Protein Total Protein Albumin Triglycerides Ur Specific [place] Urine WBC (Auto) Miscellaneous Test 03/30/17 03/30/17 03/31/17 09:45 16:04 02:19 WBC RBC Hgb Hct MCV MCH Plt Count Lymph % (Auto) [place] % (Auto) Eos % (Auto) Baso % (Auto) Lymph # Baso # Seg Neutrophils % Lymphocytes % (Manual) Monocytes % (Manual) Nucleated RBC % Seg Neutrophils # Seg Neutrophils # Man Monocytes # (Manual) PT INR Activated Clotting Time POC ABG pH POC ABG pCO2 POC ABG pO2 Sodium Potassium Chloride Carbon Dioxide BUN Creatinine Glucose POC Glucose 137 H Calcium Magnesium Direct Bilirubin AST ALT Alkaline Phosphatase Total Creatine Kinase CK-MB (CK-2) CK-MB (CK-2) Rel Index Troponin T C-Reactive Protein 21.80 H Total Protein Albumin Triglycerides Ur Specific [place] 1.031 H Urine WBC (Auto) Miscellaneous Test 03/31/17 03/31/17 03/31/17 03:57 06:54 09:22 WBC RBC Hgb Hct MCV MCH Plt Count Lymph % (Auto) [place] % (Auto) Eos % (Auto) Baso % (Auto) Lymph # Baso # Seg Neutrophils % Lymphocytes % (Manual) Monocytes % (Manual) Nucleated RBC % Seg Neutrophils # Seg Neutrophils # Man Monocytes # (Manual) PT INR Activated Clotting Time POC ABG pH 7.475 H POC ABG pCO2 25.4 L POC ABG pO2 62 L Sodium Potassium Chloride Carbon Dioxide 19 L BUN 22 H Creatinine 0.6 L Glucose 148 H POC Glucose 143 H Calcium 8.3 L Magnesium Direct Bilirubin AST ALT Alkaline Phosphatase Total Creatine Kinase CK-MB (CK-2) CK-MB (CK-2) Rel Index Troponin T C-Reactive Protein Total Protein Albumin Triglycerides Ur Specific [place] Urine WBC (Auto) Miscellaneous Test 03/31/17 03/31/17 03/31/17 11:40 17:47 23:38 WBC RBC Hgb Hct MCV MCH Plt Count Lymph % (Auto) [place] % (Auto) Eos % (Auto) Baso % (Auto) Lymph # Baso # Seg Neutrophils % Lymphocytes % (Manual) Monocytes % (Manual) Nucleated RBC % Seg Neutrophils # Seg Neutrophils # Man Monocytes # (Manual) PT INR Activated Clotting Time POC ABG pH POC ABG pCO2 POC ABG pO2 Sodium Potassium Chloride Carbon Dioxide BUN Creatinine Glucose POC Glucose 127 H 137 H 148 H Calcium Magnesium Direct Bilirubin AST ALT Alkaline Phosphatase Total Creatine Kinase CK-MB (CK-2) CK-MB (CK-2) Rel Index Troponin T C-Reactive Protein Total Protein Albumin Triglycerides Ur Specific [place] Urine WBC (Auto) Miscellaneous Test 04/01/17 04/01/17 04/01/17 04:29 05:01 11:54 WBC RBC Hgb Hct MCV MCH Plt Count Lymph % (Auto) [place] % (Auto) Eos % (Auto) Baso % (Auto) Lymph # Baso # Seg Neutrophils % Lymphocytes % (Manual) Monocytes % (Manual) Nucleated RBC % Seg Neutrophils # Seg Neutrophils # Man Monocytes # (Manual) PT INR Activated Clotting Time POC ABG pH 7.513 H POC ABG pCO2 22.1 L POC ABG pO2 64 L Sodium Potassium Chloride Carbon Dioxide BUN Creatinine Glucose POC Glucose 121 H Calcium Magnesium Direct Bilirubin AST ALT Alkaline Phosphatase Total Creatine Kinase CK-MB (CK-2) CK-MB (CK-2) Rel Index Troponin T C-Reactive Protein Total Protein Albumin Triglycerides 151 H Ur Specific [place] Urine WBC (Auto) Miscellaneous Test 04/01/17 04/02/17 04/02/17 18:17 00:11 04:52 WBC RBC Hgb Hct MCV MCH Plt Count Lymph % (Auto) [place] % (Auto) Eos % (Auto) Baso % (Auto) Lymph # Baso # Seg Neutrophils % Lymphocytes % (Manual) Monocytes % (Manual) Nucleated RBC % Seg Neutrophils # Seg Neutrophils # Man Monocytes # (Manual) PT INR Activated Clotting Time POC ABG pH 7.524 H POC ABG pCO2 25.5 L POC ABG pO2 66 L Sodium Potassium Chloride Carbon Dioxide BUN Creatinine Glucose POC Glucose 117 H 122 H Calcium Magnesium Direct Bilirubin AST ALT Alkaline Phosphatase Total Creatine Kinase CK-MB (CK-2) CK-MB (CK-2) Rel Index Troponin T C-Reactive Protein Total Protein Albumin Triglycerides Ur Specific [place] Urine WBC (Auto) Miscellaneous Test 04/02/17 04/02/17 04/02/17 05:18 10:41 12:19 WBC RBC Hgb Hct MCV MCH Plt Count Lymph % (Auto) [place] % (Auto) Eos % (Auto) Baso % (Auto) Lymph # Baso # Seg Neutrophils % Lymphocytes % (Manual) Monocytes % (Manual) Nucleated RBC % Seg Neutrophils # Seg Neutrophils # Man Monocytes # (Manual) PT INR Activated Clotting Time POC ABG pH 7.534 H POC ABG pCO2 27.4 L POC ABG pO2 Sodium Potassium Chloride Carbon Dioxide BUN Creatinine Glucose POC Glucose 132 H 129 H Calcium Magnesium Direct Bilirubin AST ALT Alkaline Phosphatase Total Creatine Kinase CK-MB (CK-2) CK-MB (CK-2) Rel Index Troponin T C-Reactive Protein Total Protein Albumin Triglycerides Ur Specific [place] Urine WBC (Auto) Miscellaneous Test 04/02/17 04/03/17 04/03/17 18:05 00:08 05:09 WBC RBC Hgb Hct MCV MCH Plt Count Lymph % (Auto) [place] % (Auto) Eos % (Auto) Baso % (Auto) Lymph # Baso # Seg Neutrophils % Lymphocytes % (Manual) Monocytes % (Manual) Nucleated RBC % Seg Neutrophils # Seg Neutrophils # Man Monocytes # (Manual) PT INR Activated Clotting Time POC ABG pH 7.455 H POC ABG pCO2 33.2 L POC ABG pO2 120 H Sodium Potassium Chloride Carbon Dioxide BUN Creatinine Glucose POC Glucose 136 H 128 H Calcium Magnesium Direct Bilirubin AST ALT Alkaline Phosphatase Total Creatine Kinase CK-MB (CK-2) CK-MB (CK-2) Rel Index Troponin T C-Reactive Protein Total Protein Albumin Triglycerides Ur Specific [place] Urine WBC (Auto) Miscellaneous Test 04/03/17 04/03/17 04/03/17 06:32 11:54 12:16 WBC 11.9 H RBC Hgb Hct MCV MCH Plt Count 125 L Lymph % (Auto) 4.8 L [place] % (Auto) Eos % (Auto) Baso % (Auto) Lymph # 0.6 L Baso # Seg Neutrophils % 86.7 H Lymphocytes % (Manual) Monocytes % (Manual) Nucleated RBC % Seg Neutrophils # 10.3 H Seg Neutrophils # Man Monocytes # (Manual) PT INR Activated Clotting Time POC ABG pH POC ABG pCO2 POC ABG pO2 Sodium Potassium Chloride Carbon Dioxide BUN Creatinine Glucose POC Glucose 138 H 143 H Calcium Magnesium Direct Bilirubin AST ALT Alkaline Phosphatase Total Creatine Kinase CK-MB (CK-2) CK-MB (CK-2) Rel Index Troponin T C-Reactive Protein Total Protein Albumin Triglycerides Ur Specific [place] Urine WBC (Auto) Miscellaneous Test 04/03/17 04/03/17 04/04/17 17:33 23:59 04:34 WBC RBC Hgb Hct MCV MCH Plt Count Lymph % (Auto) [place] % (Auto) Eos % (Auto) Baso % (Auto) Lymph # Baso # Seg Neutrophils % Lymphocytes % (Manual) Monocytes % (Manual) Nucleated RBC % Seg Neutrophils # Seg Neutrophils # Man Monocytes # (Manual) PT INR Activated Clotting Time POC ABG pH 7.457 H POC ABG pCO2 29.8 L POC ABG pO2 76 L Sodium Potassium Chloride Carbon Dioxide BUN Creatinine Glucose POC Glucose 130 H 155 H Calcium Magnesium Direct Bilirubin AST ALT Alkaline Phosphatase Total Creatine Kinase CK-MB (CK-2) CK-MB (CK-2) Rel Index Troponin T C-Reactive Protein Total Protein Albumin Triglycerides Ur Specific [place] Urine WBC (Auto) Miscellaneous Test 04/04/17 04/04/17 04/04/17 05:27 12:22 18:18 WBC RBC Hgb Hct MCV MCH Plt Count Lymph % (Auto) [place] % (Auto) Eos % (Auto) Baso % (Auto) Lymph # Baso # Seg Neutrophils % Lymphocytes % (Manual) Monocytes % (Manual) Nucleated RBC % Seg Neutrophils # Seg Neutrophils # Man Monocytes # (Manual) PT INR Activated Clotting Time POC ABG pH POC ABG pCO2 POC ABG pO2 Sodium Potassium Chloride Carbon Dioxide BUN Creatinine Glucose POC Glucose 164 H 146 H 130 H Calcium Magnesium Direct Bilirubin AST ALT Alkaline Phosphatase Total Creatine Kinase CK-MB (CK-2) CK-MB (CK-2) Rel Index Troponin T C-Reactive Protein Total Protein Albumin Triglycerides Ur Specific [place] Urine WBC (Auto) Miscellaneous Test 04/05/17 04/05/17 04/05/17 04:43 05:28 11:36 WBC RBC Hgb Hct MCV MCH Plt Count Lymph % (Auto) [place] % (Auto) Eos % (Auto) Baso % (Auto) Lymph # Baso # Seg Neutrophils % Lymphocytes % (Manual) Monocytes % (Manual) Nucleated RBC % Seg Neutrophils # Seg Neutrophils # Man Monocytes # (Manual) PT INR Activated Clotting Time POC ABG pH 7.479 H POC ABG pCO2 33.5 L POC ABG pO2 76 L Sodium Potassium Chloride Carbon Dioxide BUN Creatinine Glucose POC Glucose 145 H 136 H Calcium Magnesium Direct Bilirubin AST ALT Alkaline Phosphatase Total Creatine Kinase CK-MB (CK-2) CK-MB (CK-2) Rel Index Troponin T C-Reactive Protein Total Protein Albumin Triglycerides Ur Specific [place] Urine WBC (Auto) Miscellaneous Test 04/05/17 04/06/17 04/06/17 17:58 00:16 05:26 WBC RBC Hgb Hct MCV MCH Plt Count Lymph % (Auto) [place] % (Auto) Eos % (Auto) Baso % (Auto) Lymph # Baso # Seg Neutrophils % Lymphocytes % (Manual) Monocytes % (Manual) Nucleated RBC % Seg Neutrophils # Seg Neutrophils # Man Monocytes # (Manual) PT INR Activated Clotting Time POC ABG pH POC ABG pCO2 POC ABG pO2 Sodium Potassium Chloride Carbon Dioxide BUN Creatinine Glucose POC Glucose 130 H 159 H 146 H Calcium Magnesium Direct Bilirubin AST ALT Alkaline Phosphatase Total Creatine Kinase CK-MB (CK-2) CK-MB (CK-2) Rel Index Troponin T C-Reactive Protein Total Protein Albumin Triglycerides Ur Specific [place] Urine WBC (Auto) Miscellaneous Test 04/06/17 04/06/17 04/07/17 13:11 16:54 11:45 WBC RBC Hgb Hct MCV MCH Plt Count Lymph % (Auto) [place] % (Auto) Eos % (Auto) Baso % (Auto) Lymph # Baso # Seg Neutrophils % Lymphocytes % (Manual) Monocytes % (Manual) Nucleated RBC % Seg Neutrophils # Seg Neutrophils # Man Monocytes # (Manual) PT INR Activated Clotting Time POC ABG pH 7.517 H POC ABG pCO2 32.1 L POC ABG pO2 Sodium Potassium Chloride Carbon Dioxide BUN Creatinine Glucose POC Glucose 132 H 123 H Calcium Magnesium Direct Bilirubin AST ALT Alkaline Phosphatase Total Creatine Kinase CK-MB (CK-2) CK-MB (CK-2) Rel Index Troponin T C-Reactive Protein Total Protein Albumin Triglycerides Ur Specific [place] Urine WBC (Auto) Miscellaneous Test 04/07/17 04/07/17 04/07/17 12:51 17:40 23:55 WBC RBC Hgb Hct MCV MCH Plt Count Lymph % (Auto) [place] % (Auto) Eos % (Auto) Baso % (Auto) Lymph # Baso # Seg Neutrophils % Lymphocytes % (Manual) Monocytes % (Manual) Nucleated RBC % Seg Neutrophils # Seg Neutrophils # Man Monocytes # (Manual) PT INR Activated Clotting Time POC ABG pH POC ABG pCO2 POC ABG pO2 Sodium Potassium Chloride Carbon Dioxide BUN Creatinine Glucose POC Glucose 138 H 154 H 143 H Calcium Magnesium Direct Bilirubin AST ALT Alkaline Phosphatase Total Creatine Kinase CK-MB (CK-2) CK-MB (CK-2) Rel Index Troponin T C-Reactive Protein Total Protein Albumin Triglycerides Ur Specific [place] Urine WBC (Auto) Miscellaneous Test 04/08/17 04/08/17 04/08/17 05:27 11:14 17:44 WBC RBC Hgb Hct MCV MCH Plt Count Lymph % (Auto) [place] % (Auto) Eos % (Auto) Baso % (Auto) Lymph # Baso # Seg Neutrophils % Lymphocytes % (Manual) Monocytes % (Manual) Nucleated RBC % Seg Neutrophils # Seg Neutrophils # Man Monocytes # (Manual) PT INR Activated Clotting Time POC ABG pH POC ABG pCO2 POC ABG pO2 Sodium Potassium Chloride Carbon Dioxide BUN Creatinine Glucose POC Glucose 142 H 153 H 129 H Calcium Magnesium Direct Bilirubin AST ALT Alkaline Phosphatase Total Creatine Kinase CK-MB (CK-2) CK-MB (CK-2) Rel Index Troponin T C-Reactive Protein Total Protein Albumin Triglycerides Ur Specific [place] Urine WBC (Auto) Miscellaneous Test 04/09/17 04/09/17 04/09/17 08:20 11:21 17:37 WBC RBC Hgb Hct MCV MCH Plt Count Lymph % (Auto) [place] % (Auto) Eos % (Auto) Baso % (Auto) Lymph # Baso # Seg Neutrophils % Lymphocytes % (Manual) Monocytes % (Manual) Nucleated RBC % Seg Neutrophils # Seg Neutrophils # Man Monocytes # (Manual) PT INR Activated Clotting Time POC ABG pH POC ABG pCO2 POC ABG pO2 Sodium 147 H Potassium Chloride 108.8 H Carbon Dioxide BUN 39 H Creatinine 0.5 L Glucose 138 H POC Glucose 152 H 109 H Calcium Magnesium Direct Bilirubin AST ALT Alkaline Phosphatase Total Creatine Kinase CK-MB (CK-2) CK-MB (CK-2) Rel Index Troponin T C-Reactive Protein Total Protein Albumin Triglycerides Ur Specific [place] Urine WBC (Auto) Miscellaneous Test 04/10/17 04/10/17 04/10/17 00:13 04:16 04:16 WBC RBC Hgb 11.5 L Hct MCV 96 H MCH Plt Count 103 L Lymph % (Auto) 11.1 L [place] % (Auto) Eos % (Auto) Baso % (Auto) Lymph # Baso # Seg Neutrophils % 81.5 H Lymphocytes % (Manual) Monocytes % (Manual) Nucleated RBC % Seg Neutrophils # 8.8 H Seg Neutrophils # Man Monocytes # (Manual) PT INR Activated Clotting Time POC ABG pH POC ABG pCO2 POC ABG pO2 Sodium 148 H Potassium Chloride 109.0 H Carbon Dioxide BUN 36 H Creatinine 0.5 L Glucose 131 H POC Glucose 127 H Calcium 8.1 L Magnesium 2.40 H Direct Bilirubin AST 206 H ALT 228 H Alkaline Phosphatase 178 H Total Creatine Kinase CK-MB (CK-2) CK-MB (CK-2) Rel Index Troponin T C-Reactive Protein Total Protein Albumin 2.8 L Triglycerides Ur Specific [place] Urine WBC (Auto) Miscellaneous Test 04/10/17 04/10/17 04/10/17 06:01 11:57 18:27 WBC RBC Hgb Hct MCV MCH Plt Count Lymph % (Auto) [place] % (Auto) Eos % (Auto) Baso % (Auto) Lymph # Baso # Seg Neutrophils % Lymphocytes % (Manual) Monocytes % (Manual) Nucleated RBC % Seg Neutrophils # Seg Neutrophils # Man Monocytes # (Manual) PT INR Activated Clotting Time POC ABG pH POC ABG pCO2 POC ABG pO2 Sodium Potassium Chloride Carbon Dioxide BUN Creatinine Glucose POC Glucose 108 H 154 H 130 H Calcium Magnesium Direct Bilirubin AST ALT Alkaline Phosphatase Total Creatine Kinase CK-MB (CK-2) CK-MB (CK-2) Rel Index Troponin T C-Reactive Protein Total Protein Albumin Triglycerides Ur Specific [place] Urine WBC (Auto) Miscellaneous Test 04/11/17 04/11/17 04/12/17 12:25 17:10 00:22 WBC RBC Hgb Hct MCV MCH Plt Count Lymph % (Auto) [place] % (Auto) Eos % (Auto) Baso % (Auto) Lymph # Baso # Seg Neutrophils % Lymphocytes % (Manual) Monocytes % (Manual) Nucleated RBC % Seg Neutrophils # Seg Neutrophils # Man Monocytes # (Manual) PT INR Activated Clotting Time POC ABG pH POC ABG pCO2 POC ABG pO2 Sodium Potassium Chloride Carbon Dioxide BUN Creatinine Glucose POC Glucose 107 H 129 H 128 H Calcium Magnesium Direct Bilirubin AST ALT Alkaline Phosphatase Total Creatine Kinase CK-MB (CK-2) CK-MB (CK-2) Rel Index Troponin T C-Reactive Protein Total Protein Albumin Triglycerides Ur Specific [place] Urine WBC (Auto) Miscellaneous Test 04/12/17 04/12/17 04/12/17 05:00 11:57 17:47 WBC RBC Hgb Hct MCV MCH Plt Count Lymph % (Auto) [place] % (Auto) Eos % (Auto) Baso % (Auto) Lymph # Baso # Seg Neutrophils % Lymphocytes % (Manual) Monocytes % (Manual) Nucleated RBC % Seg Neutrophils # Seg Neutrophils # Man Monocytes # (Manual) PT INR Activated Clotting Time POC ABG pH POC ABG pCO2 POC ABG pO2 Sodium Potassium Chloride Carbon Dioxide BUN Creatinine Glucose POC Glucose 140 H 142 H Calcium Magnesium Direct Bilirubin AST 158 H ALT 184 H Alkaline Phosphatase 170 H Total Creatine Kinase CK-MB (CK-2) CK-MB (CK-2) Rel Index Troponin T C-Reactive Protein Total Protein Albumin 2.8 L Triglycerides Ur Specific [place] Urine WBC (Auto) Miscellaneous Test 04/12/17 04/12/17 04/13/17 21:36 21:36 01:37 WBC RBC Hgb Hct MCV MCH Plt Count Lymph % (Auto) [place] % (Auto) Eos % (Auto) Baso % (Auto) Lymph # Baso # Seg Neutrophils % Lymphocytes % (Manual) Monocytes % (Manual) Nucleated RBC % Seg Neutrophils # Seg Neutrophils # Man Monocytes # (Manual) PT INR Activated Clotting Time POC ABG pH POC ABG pCO2 POC ABG pO2 Sodium Potassium Chloride Carbon Dioxide BUN Creatinine Glucose POC Glucose 126 H Calcium Magnesium Direct Bilirubin AST ALT Alkaline Phosphatase Total Creatine Kinase 1404 H CK-MB (CK-2) 8.0 H CK-MB (CK-2) Rel Index Troponin T 0.767 H* C-Reactive Protein Total Protein Albumin Triglycerides Ur Specific [place] Urine WBC (Auto) Miscellaneous Test 04/13/17 04/13/17 04/13/17 04:45 04:52 12:17 WBC RBC Hgb Hct MCV MCH Plt Count Lymph % (Auto) [place] % (Auto) Eos % (Auto) Baso % (Auto) Lymph # Baso # Seg Neutrophils % Lymphocytes % (Manual) Monocytes % (Manual) Nucleated RBC % Seg Neutrophils # Seg Neutrophils # Man Monocytes # (Manual) PT INR Activated Clotting Time POC ABG pH POC ABG pCO2 POC ABG pO2 Sodium 148 H Potassium Chloride 112.8 H Carbon Dioxide BUN 33 H Creatinine 0.4 L Glucose 121 H POC Glucose 126 H 149 H Calcium Magnesium Direct Bilirubin AST 160 H ALT 189 H Alkaline Phosphatase 166 H Total Creatine Kinase CK-MB (CK-2) CK-MB (CK-2) Rel Index Troponin T C-Reactive Protein Total Protein Albumin 2.6 L Triglycerides Ur Specific [place] Urine WBC (Auto) Miscellaneous Test 04/13/17 04/14/17 04/14/17 17:45 00:20 00:45 WBC RBC Hgb Hct MCV MCH Plt Count Lymph % (Auto) [place] % (Auto) Eos % (Auto) Baso % (Auto) Lymph # Baso # Seg Neutrophils % Lymphocytes % (Manual) Monocytes % (Manual) Nucleated RBC % Seg Neutrophils # Seg Neutrophils # Man Monocytes # (Manual) PT INR Activated Clotting Time POC ABG pH POC ABG pCO2 POC ABG pO2 Sodium Potassium Chloride Carbon Dioxide BUN Creatinine Glucose POC Glucose 130 H 144 H 144 H Calcium Magnesium Direct Bilirubin AST ALT Alkaline Phosphatase Total Creatine Kinase CK-MB (CK-2) CK-MB (CK-2) Rel Index Troponin T C-Reactive Protein Total Protein Albumin Triglycerides Ur Specific [place] Urine WBC (Auto) Miscellaneous Test 04/14/17 04/14/17 04/14/17 05:40 11:06 11:31 WBC RBC Hgb Hct MCV MCH Plt Count Lymph % (Auto) [place] % (Auto) Eos % (Auto) Baso % (Auto) Lymph # Baso # Seg Neutrophils % Lymphocytes % (Manual) Monocytes % (Manual) Nucleated RBC % Seg Neutrophils # Seg Neutrophils # Man Monocytes # (Manual) PT INR Activated Clotting Time POC ABG pH POC ABG pCO2 POC ABG pO2 Sodium Potassium Chloride Carbon Dioxide BUN Creatinine Glucose POC Glucose 139 H 123 H Calcium Magnesium Direct Bilirubin AST ALT Alkaline Phosphatase Total Creatine Kinase CK-MB (CK-2) CK-MB (CK-2) Rel Index Troponin T C-Reactive Protein Total Protein Albumin Triglycerides Ur Specific [place] 1.033 H Urine WBC (Auto) > 182.0 H Miscellaneous Test 04/14/17 04/14/17 04/15/17 18:00 23:52 05:15 WBC 12.5 H RBC 3.38 L Hgb 10.6 L Hct 32.7 L MCV 97 H MCH Plt Count 107 L Lymph % (Auto) 8.7 L [place] % (Auto) Eos % (Auto) Baso % (Auto) Lymph # 1.1 L Baso # Seg Neutrophils % 86.1 H Lymphocytes % (Manual) Monocytes % (Manual) Nucleated RBC % Seg Neutrophils # 10.7 H Seg Neutrophils # Man Monocytes # (Manual) PT INR Activated Clotting Time POC ABG pH POC ABG pCO2 POC ABG pO2 Sodium Potassium Chloride Carbon Dioxide BUN Creatinine Glucose POC Glucose 133 H 133 H Calcium Magnesium Direct Bilirubin AST ALT Alkaline Phosphatase Total Creatine Kinase CK-MB (CK-2) CK-MB (CK-2) Rel Index Troponin T C-Reactive Protein Total Protein Albumin Triglycerides Ur Specific [place] Urine WBC (Auto) Miscellaneous Test 04/15/17 04/15/17 04/15/17 05:15 05:25 11:50 WBC RBC Hgb Hct MCV MCH Plt Count Lymph % (Auto) [place] % (Auto) Eos % (Auto) Baso % (Auto) Lymph # Baso # Seg Neutrophils % Lymphocytes % (Manual) Monocytes % (Manual) Nucleated RBC % Seg Neutrophils # Seg Neutrophils # Man Monocytes # (Manual) PT INR Activated Clotting Time POC ABG pH POC ABG pCO2 POC ABG pO2 Sodium 149 H Potassium 3.5 L Chloride 114.1 H Carbon Dioxide 21 L BUN 29 H Creatinine 0.4 L Glucose 128 H POC Glucose 133 H 107 H Calcium 8.3 L Magnesium Direct Bilirubin 0.4 H AST 149 H ALT 182 H Alkaline Phosphatase 143 H Total Creatine Kinase CK-MB (CK-2) CK-MB (CK-2) Rel Index Troponin T C-Reactive Protein Total Protein Albumin 2.5 L Triglycerides Ur Specific [place] Urine WBC (Auto) Miscellaneous Test 04/15/17 04/16/17 04/16/17 16:55 00:02 03:17 WBC RBC 3.39 L Hgb 10.5 L Hct 32.4 L MCV 96 H MCH Plt Count 106 L Lymph % (Auto) 6.7 L [place] % (Auto) Eos % (Auto) Baso % (Auto) Lymph # 0.6 L Baso # Seg Neutrophils % 86.8 H Lymphocytes % (Manual) Monocytes % (Manual) Nucleated RBC % Seg Neutrophils # 8.2 H Seg Neutrophils # Man Monocytes # (Manual) PT INR Activated Clotting Time POC ABG pH POC ABG pCO2 POC ABG pO2 Sodium Potassium Chloride Carbon Dioxide BUN Creatinine Glucose POC Glucose 146 H 148 H Calcium Magnesium Direct Bilirubin AST ALT Alkaline Phosphatase Total Creatine Kinase CK-MB (CK-2) CK-MB (CK-2) Rel Index Troponin T C-Reactive Protein Total Protein Albumin Triglycerides Ur Specific [place] Urine WBC (Auto) Miscellaneous Test 04/16/17 04/16/17 04/16/17 03:17 05:19 11:13 WBC RBC Hgb Hct MCV MCH Plt Count Lymph % (Auto) [place] % (Auto) Eos % (Auto) Baso % (Auto) Lymph # Baso # Seg Neutrophils % Lymphocytes % (Manual) Monocytes % (Manual) Nucleated RBC % Seg Neutrophils # Seg Neutrophils # Man Monocytes # (Manual) PT INR Activated Clotting Time POC ABG pH POC ABG pCO2 POC ABG pO2 Sodium 149 H Potassium Chloride 111.1 H Carbon Dioxide 20 L BUN 27 H Creatinine 0.3 L Glucose 156 H POC Glucose 171 H 169 H Calcium 8.3 L Magnesium Direct Bilirubin AST ALT Alkaline Phosphatase Total Creatine Kinase CK-MB (CK-2) CK-MB (CK-2) Rel Index Troponin T C-Reactive Protein Total Protein Albumin Triglycerides Ur Specific [place] Urine WBC (Auto) Miscellaneous Test 04/16/17 04/17/17 04/17/17 17:03 00:00 05:09 WBC RBC Hgb Hct MCV MCH Plt Count Lymph % (Auto) [place] % (Auto) Eos % (Auto) Baso % (Auto) Lymph # Baso # Seg Neutrophils % Lymphocytes % (Manual) Monocytes % (Manual) Nucleated RBC % Seg Neutrophils # Seg Neutrophils # Man Monocytes # (Manual) PT INR Activated Clotting Time POC ABG pH POC ABG pCO2 POC ABG pO2 Sodium Potassium Chloride Carbon Dioxide BUN Creatinine Glucose POC Glucose 151 H 165 H 145 H Calcium Magnesium Direct Bilirubin AST ALT Alkaline Phosphatase Total Creatine Kinase CK-MB (CK-2) CK-MB (CK-2) Rel Index Troponin T C-Reactive Protein Total Protein Albumin Triglycerides Ur Specific [place] Urine WBC (Auto) Miscellaneous Test 04/17/17 04/17/17 04/18/17 11:38 17:47 00:01 WBC RBC Hgb Hct MCV MCH Plt Count Lymph % (Auto) [place] % (Auto) Eos % (Auto) Baso % (Auto) Lymph # Baso # Seg Neutrophils % Lymphocytes % (Manual) Monocytes % (Manual) Nucleated RBC % Seg Neutrophils # Seg Neutrophils # Man Monocytes # (Manual) PT INR Activated Clotting Time POC ABG pH POC ABG pCO2 POC ABG pO2 Sodium Potassium Chloride Carbon Dioxide BUN Creatinine Glucose POC Glucose 170 H 161 H 131 H Calcium Magnesium Direct Bilirubin AST ALT Alkaline Phosphatase Total Creatine Kinase CK-MB (CK-2) CK-MB (CK-2) Rel Index Troponin T C-Reactive Protein Total Protein Albumin Triglycerides Ur Specific [place] Urine WBC (Auto) Miscellaneous Test 04/18/17 04/18/17 04/18/17 03:55 03:55 05:30 WBC RBC 3.05 L Hgb 9.8 L Hct 29.0 L MCV 95 H MCH Plt Count 113 L Lymph % (Auto) [place] % (Auto) Eos % (Auto) 5.3 H Baso % (Auto) Lymph # Baso # Seg Neutrophils % 71.5 H Lymphocytes % (Manual) Monocytes % (Manual) Nucleated RBC % Seg Neutrophils # Seg Neutrophils # Man Monocytes # (Manual) PT INR Activated Clotting Time POC ABG pH 7.460 H POC ABG pCO2 30.8 L POC ABG pO2 129 H Sodium Potassium Chloride Carbon Dioxide 21 L BUN 25 H Creatinine 0.4 L Glucose 123 H POC Glucose Calcium 8.3 L Magnesium Direct Bilirubin AST ALT Alkaline Phosphatase Total Creatine Kinase CK-MB (CK-2) CK-MB (CK-2) Rel Index Troponin T C-Reactive Protein Total Protein Albumin Triglycerides Ur Specific [place] Urine WBC (Auto) Miscellaneous Test 04/18/17 04/18/17 04/19/17 17:10 23:40 04:36 WBC RBC 3.21 L Hgb 10.2 L Hct 30.4 L MCV 95 H MCH Plt Count 131 L Lymph % (Auto) 12.1 L [place] % (Auto) Eos % (Auto) 4.7 H Baso % (Auto) 2.4 H Lymph # 0.9 L Baso # 0.2 H Seg Neutrophils % 75.0 H Lymphocytes % (Manual) Monocytes % (Manual) Nucleated RBC % Seg Neutrophils # Seg Neutrophils # Man Monocytes # (Manual) PT INR Activated Clotting Time POC ABG pH POC ABG pCO2 POC ABG pO2 Sodium Potassium Chloride Carbon Dioxide BUN Creatinine Glucose POC Glucose 135 H 157 H Calcium Magnesium Direct Bilirubin AST ALT Alkaline Phosphatase Total Creatine Kinase CK-MB (CK-2) CK-MB (CK-2) Rel Index Troponin T C-Reactive Protein Total Protein Albumin Triglycerides Ur Specific [place] Urine WBC (Auto) Miscellaneous Test 04/19/17 04/19/17 04/19/17 04:36 05:12 06:50 WBC RBC Hgb Hct MCV MCH Plt Count Lymph % (Auto) [place] % (Auto) Eos % (Auto) Baso % (Auto) Lymph # Baso # Seg Neutrophils % Lymphocytes % (Manual) Monocytes % (Manual) Nucleated RBC % Seg Neutrophils # Seg Neutrophils # Man Monocytes # (Manual) PT INR Activated Clotting Time POC ABG pH 7.516 H POC ABG pCO2 28.0 L POC ABG pO2 Sodium Potassium Chloride Carbon Dioxide 21 L BUN 23 H Creatinine 0.2 L Glucose 137 H POC Glucose 131 H Calcium 7.9 L Magnesium Direct Bilirubin AST ALT Alkaline Phosphatase Total Creatine Kinase CK-MB (CK-2) CK-MB (CK-2) Rel Index Troponin T C-Reactive Protein Total Protein Albumin Triglycerides Ur Specific [place] Urine WBC (Auto) Miscellaneous Test 04/19/17 04/19/17 04/20/17 12:36 17:42 00:12 WBC RBC Hgb Hct MCV MCH Plt Count Lymph % (Auto) [place] % (Auto) Eos % (Auto) Baso % (Auto) Lymph # Baso # Seg Neutrophils % Lymphocytes % (Manual) Monocytes % (Manual) Nucleated RBC % Seg Neutrophils # Seg Neutrophils # Man Monocytes # (Manual) PT INR Activated Clotting Time POC ABG pH POC ABG pCO2 POC ABG pO2 Sodium Potassium Chloride Carbon Dioxide BUN Creatinine Glucose POC Glucose 128 H 140 H 132 H Calcium Magnesium Direct Bilirubin AST ALT Alkaline Phosphatase Total Creatine Kinase CK-MB (CK-2) CK-MB (CK-2) Rel Index Troponin T C-Reactive Protein Total Protein Albumin Triglycerides Ur Specific [place] Urine WBC (Auto) Miscellaneous Test 04/20/17 04/20/17 04/20/17 03:35 03:35 05:10 WBC RBC 3.34 L Hgb 10.4 L Hct 31.6 L MCV 95 H MCH Plt Count Lymph % (Auto) 12.9 L [place] % (Auto) Eos % (Auto) Baso % (Auto) Lymph # Baso # Seg Neutrophils % 77.3 H Lymphocytes % (Manual) Monocytes % (Manual) Nucleated RBC % Seg Neutrophils # Seg Neutrophils # Man Monocytes # (Manual) PT INR Activated Clotting Time POC ABG pH POC ABG pCO2 POC ABG pO2 Sodium Potassium Chloride Carbon Dioxide BUN Creatinine 0.3 L Glucose 155 H POC Glucose 135 H Calcium 7.8 L Magnesium Direct Bilirubin AST ALT Alkaline Phosphatase Total Creatine Kinase CK-MB (CK-2) CK-MB (CK-2) Rel Index Troponin T C-Reactive Protein Total Protein Albumin Triglycerides Ur Specific [place] Urine WBC (Auto) Miscellaneous Test 04/20/17 04/20/17 04/21/17 12:49 18:21 00:05 WBC RBC Hgb Hct MCV MCH Plt Count Lymph % (Auto) [place] % (Auto) Eos % (Auto) Baso % (Auto) Lymph # Baso # Seg Neutrophils % Lymphocytes % (Manual) Monocytes % (Manual) Nucleated RBC % Seg Neutrophils # Seg Neutrophils # Man Monocytes # (Manual) PT INR Activated Clotting Time POC ABG pH POC ABG pCO2 POC ABG pO2 Sodium Potassium Chloride Carbon Dioxide BUN Creatinine Glucose POC Glucose 155 H 165 H 141 H Calcium Magnesium Direct Bilirubin AST ALT Alkaline Phosphatase Total Creatine Kinase CK-MB (CK-2) CK-MB (CK-2) Rel Index Troponin T C-Reactive Protein Total Protein Albumin Triglycerides Ur Specific [place] Urine WBC (Auto) Miscellaneous Test 04/21/17 04/21/17 04/21/17 06:00 12:11 17:04 WBC RBC Hgb Hct MCV MCH Plt Count Lymph % (Auto) [place] % (Auto) Eos % (Auto) Baso % (Auto) Lymph # Baso # Seg Neutrophils % Lymphocytes % (Manual) Monocytes % (Manual) Nucleated RBC % Seg Neutrophils # Seg Neutrophils # Man Monocytes # (Manual) PT INR Activated Clotting Time POC ABG pH POC ABG pCO2 POC ABG pO2 Sodium Potassium Chloride Carbon Dioxide BUN Creatinine Glucose POC Glucose 152 H 165 H 156 H Calcium Magnesium Direct Bilirubin AST ALT Alkaline Phosphatase Total Creatine Kinase CK-MB (CK-2) CK-MB (CK-2) Rel Index Troponin T C-Reactive Protein Total Protein Albumin Triglycerides Ur Specific [place] Urine WBC (Auto) Miscellaneous Test 04/21/17 04/21/17 04/22/17 22:00 23:59 05:49 WBC RBC Hgb Hct MCV MCH Plt Count Lymph % (Auto) [place] % (Auto) Eos % (Auto) Baso % (Auto) Lymph # Baso # Seg Neutrophils % Lymphocytes % (Manual) Monocytes % (Manual) Nucleated RBC % Seg Neutrophils # Seg Neutrophils # Man Monocytes # (Manual) PT INR Activated Clotting Time POC ABG pH POC ABG pCO2 POC ABG pO2 Sodium Potassium Chloride Carbon Dioxide BUN Creatinine Glucose POC Glucose 166 H 173 H Calcium Magnesium Direct Bilirubin AST ALT Alkaline Phosphatase Total Creatine Kinase CK-MB (CK-2) CK-MB (CK-2) Rel Index Troponin T C-Reactive Protein Total Protein Albumin Triglycerides Ur Specific [place] Urine WBC (Auto) 10.0 H Miscellaneous Test 04/22/17 04/22/17 04/23/17 11:11 18:04 00:37 WBC RBC Hgb Hct MCV MCH Plt Count Lymph % (Auto) [place] % (Auto) Eos % (Auto) Baso % (Auto) Lymph # Baso # Seg Neutrophils % Lymphocytes % (Manual) Monocytes % (Manual) Nucleated RBC % Seg Neutrophils # Seg Neutrophils # Man Monocytes # (Manual) PT INR Activated Clotting Time POC ABG pH POC ABG pCO2 POC ABG pO2 Sodium Potassium Chloride Carbon Dioxide BUN Creatinine Glucose POC Glucose 172 H 140 H 135 H Calcium Magnesium Direct Bilirubin AST ALT Alkaline Phosphatase Total Creatine Kinase CK-MB (CK-2) CK-MB (CK-2) Rel Index Troponin T C-Reactive Protein Total Protein Albumin Triglycerides Ur Specific [place] Urine WBC (Auto) Miscellaneous Test 04/23/17 04/23/17 04/23/17 05:33 06:20 11:10 WBC RBC 3.19 L Hgb 9.9 L Hct 30.0 L MCV MCH Plt Count Lymph % (Auto) 8.0 L [place] % (Auto) Eos % (Auto) Baso % (Auto) Lymph # 0.8 L Baso # Seg Neutrophils % 84.5 H Lymphocytes % (Manual) Monocytes % (Manual) Nucleated RBC % Seg Neutrophils # 8.2 H Seg Neutrophils # Man Monocytes # (Manual) PT INR Activated Clotting Time POC ABG pH POC ABG pCO2 POC ABG pO2 Sodium Potassium Chloride Carbon Dioxide BUN Creatinine Glucose POC Glucose 134 H 134 H Calcium Magnesium Direct Bilirubin AST ALT Alkaline Phosphatase Total Creatine Kinase CK-MB (CK-2) CK-MB (CK-2) Rel Index Troponin T C-Reactive Protein Total Protein Albumin Triglycerides Ur Specific [place] Urine WBC (Auto) Miscellaneous Test 04/23/17 04/24/17 04/24/17 17:26 00:53 06:46 WBC RBC Hgb Hct MCV MCH Plt Count Lymph % (Auto) [place] % (Auto) Eos % (Auto) Baso % (Auto) Lymph # Baso # Seg Neutrophils % Lymphocytes % (Manual) Monocytes % (Manual) Nucleated RBC % Seg Neutrophils # Seg Neutrophils # Man Monocytes # (Manual) PT INR Activated Clotting Time POC ABG pH POC ABG pCO2 POC ABG pO2 Sodium Potassium Chloride Carbon Dioxide BUN Creatinine Glucose POC Glucose 164 H 146 H 125 H Calcium Magnesium Direct Bilirubin AST ALT Alkaline Phosphatase Total Creatine Kinase CK-MB (CK-2) CK-MB (CK-2) Rel Index Troponin T C-Reactive Protein Total Protein Albumin Triglycerides Ur Specific [place] Urine WBC (Auto) Miscellaneous Test 04/24/17 04/24/17 04/24/17 11:55 17:50 23:36 WBC RBC Hgb Hct MCV MCH Plt Count Lymph % (Auto) [place] % (Auto) Eos % (Auto) Baso % (Auto) Lymph # Baso # Seg Neutrophils % Lymphocytes % (Manual) Monocytes % (Manual) Nucleated RBC % Seg Neutrophils # Seg Neutrophils # Man Monocytes # (Manual) PT INR Activated Clotting Time POC ABG pH POC ABG pCO2 POC ABG pO2 Sodium Potassium Chloride Carbon Dioxide BUN Creatinine Glucose POC Glucose 156 H 146 H 131 H Calcium Magnesium Direct Bilirubin AST ALT Alkaline Phosphatase Total Creatine Kinase CK-MB (CK-2) CK-MB (CK-2) Rel Index Troponin T C-Reactive Protein Total Protein Albumin Triglycerides Ur Specific [place] Urine WBC (Auto) Miscellaneous Test 04/25/17 04/25/17 04/25/17 04:51 05:16 07:07 WBC RBC Hgb Hct MCV MCH Plt Count Lymph % (Auto) [place] % (Auto) Eos % (Auto) Baso % (Auto) Lymph # Baso # Seg Neutrophils % Lymphocytes % (Manual) Monocytes % (Manual) Nucleated RBC % Seg Neutrophils # Seg Neutrophils # Man Monocytes # (Manual) PT INR Activated Clotting Time POC ABG pH POC ABG pCO2 POC ABG pO2 Sodium Potassium Chloride Carbon Dioxide BUN Creatinine Glucose POC Glucose 139 H Calcium Magnesium Direct Bilirubin AST 105 H ALT 204 H Alkaline Phosphatase 189 H Total Creatine Kinase CK-MB (CK-2) CK-MB (CK-2) Rel Index Troponin T C-Reactive Protein Total Protein Albumin 2.4 L Triglycerides Ur Specific [place] Urine WBC (Auto) Miscellaneous Test Flexitest 1 H 04/25/17 04/25/17 04/25/17 12:29 17:23 23:32 WBC RBC Hgb Hct MCV MCH Plt Count Lymph % (Auto) [place] % (Auto) Eos % (Auto) Baso % (Auto) Lymph # Baso # Seg Neutrophils % Lymphocytes % (Manual) Monocytes % (Manual) Nucleated RBC % Seg Neutrophils # Seg Neutrophils # Man Monocytes # (Manual) PT INR Activated Clotting Time POC ABG pH POC ABG pCO2 POC ABG pO2 Sodium Potassium Chloride Carbon Dioxide BUN Creatinine Glucose POC Glucose 132 H 133 H 128 H Calcium Magnesium Direct Bilirubin AST ALT Alkaline Phosphatase Total Creatine Kinase CK-MB (CK-2) CK-MB (CK-2) Rel Index Troponin T C-Reactive Protein Total Protein Albumin Triglycerides Ur Specific [place] Urine WBC (Auto) Miscellaneous Test 04/26/17 04/26/17 04/26/17 05:24 11:28 17:09 WBC RBC Hgb Hct MCV MCH Plt Count Lymph % (Auto) [place] % (Auto) Eos % (Auto) Baso % (Auto) Lymph # Baso # Seg Neutrophils % Lymphocytes % (Manual) Monocytes % (Manual) Nucleated RBC % Seg Neutrophils # Seg Neutrophils # Man Monocytes # (Manual) PT INR Activated Clotting Time POC ABG pH POC ABG pCO2 POC ABG pO2 Sodium Potassium Chloride Carbon Dioxide BUN Creatinine Glucose POC Glucose 132 H 146 H 141 H Calcium Magnesium Direct Bilirubin AST ALT Alkaline Phosphatase Total Creatine Kinase CK-MB (CK-2) CK-MB (CK-2) Rel Index Troponin T C-Reactive Protein Total Protein Albumin Triglycerides Ur Specific [place] Urine WBC (Auto) Miscellaneous Test 04/26/17 04/27/17 04/27/17 23:52 05:40 05:40 WBC RBC 3.22 L Hgb 10.0 L Hct 29.9 L MCV MCH Plt Count Lymph % (Auto) [place] % (Auto) Eos % (Auto) Baso % (Auto) Lymph # Baso # Seg Neutrophils % 76.6 H Lymphocytes % (Manual) Monocytes % (Manual) Nucleated RBC % Seg Neutrophils # Seg Neutrophils # Man Monocytes # (Manual) PT INR Activated Clotting Time POC ABG pH POC ABG pCO2 POC ABG pO2 Sodium Potassium Chloride Carbon Dioxide BUN Creatinine Glucose POC Glucose 140 H Calcium Magnesium Direct Bilirubin AST 66 H ALT 137 H Alkaline Phosphatase 169 H Total Creatine Kinase CK-MB (CK-2) CK-MB (CK-2) Rel Index Troponin T C-Reactive Protein Total Protein 6.2 L Albumin 2.6 L Triglycerides Ur Specific [place] Urine WBC (Auto) Miscellaneous Test 04/27/17 04/27/17 04/27/17 05:40 06:10 11:13 WBC RBC Hgb Hct MCV MCH Plt Count Lymph % (Auto) [place] % (Auto) Eos % (Auto) Baso % (Auto) Lymph # Baso # Seg Neutrophils % Lymphocytes % (Manual) Monocytes % (Manual) Nucleated RBC % Seg Neutrophils # Seg Neutrophils # Man Monocytes # (Manual) PT INR Activated Clotting Time POC ABG pH POC ABG pCO2 POC ABG pO2 Sodium Potassium Chloride Carbon Dioxide BUN Creatinine 0.2 L Glucose 139 H POC Glucose 130 H 151 H Calcium Magnesium Direct Bilirubin AST ALT Alkaline Phosphatase Total Creatine Kinase CK-MB (CK-2) CK-MB (CK-2) Rel Index Troponin T C-Reactive Protein Total Protein Albumin Triglycerides Ur Specific [place] Urine WBC (Auto) Miscellaneous Test 04/27/17 04/27/17 04/28/17 17:37 23:19 05:24 WBC RBC Hgb Hct MCV MCH Plt Count Lymph % (Auto) [place] % (Auto) Eos % (Auto) Baso % (Auto) Lymph # Baso # Seg Neutrophils % Lymphocytes % (Manual) Monocytes % (Manual) Nucleated RBC % Seg Neutrophils # Seg Neutrophils # Man Monocytes # (Manual) PT INR Activated Clotting Time POC ABG pH POC ABG pCO2 POC ABG pO2 Sodium Potassium Chloride Carbon Dioxide BUN Creatinine Glucose POC Glucose 159 H 130 H 132 H Calcium Magnesium Direct Bilirubin AST ALT Alkaline Phosphatase Total Creatine Kinase CK-MB (CK-2) CK-MB (CK-2) Rel Index Troponin T C-Reactive Protein Total Protein Albumin Triglycerides Ur Specific [place] Urine WBC (Auto) Miscellaneous Test 04/28/17 04/28/17 04/28/17 11:15 17:38 23:23 WBC RBC Hgb Hct MCV MCH Plt Count Lymph % (Auto) [place] % (Auto) Eos % (Auto) Baso % (Auto) Lymph # Baso # Seg Neutrophils % Lymphocytes % (Manual) Monocytes % (Manual) Nucleated RBC % Seg Neutrophils # Seg Neutrophils # Man Monocytes # (Manual) PT INR Activated Clotting Time POC ABG pH POC ABG pCO2 POC ABG pO2 Sodium Potassium Chloride Carbon Dioxide BUN Creatinine Glucose POC Glucose 162 H 133 H 138 H Calcium Magnesium Direct Bilirubin AST ALT Alkaline Phosphatase Total Creatine Kinase CK-MB (CK-2) CK-MB (CK-2) Rel Index Troponin T C-Reactive Protein Total Protein Albumin Triglycerides Ur Specific [place] Urine WBC (Auto) Miscellaneous Test 04/29/17 04/29/17 04/29/17 05:15 12:55 17:21 WBC RBC Hgb Hct MCV MCH Plt Count Lymph % (Auto) [place] % (Auto) Eos % (Auto) Baso % (Auto) Lymph # Baso # Seg Neutrophils % Lymphocytes % (Manual) Monocytes % (Manual) Nucleated RBC % Seg Neutrophils # Seg Neutrophils # Man Monocytes # (Manual) PT INR Activated Clotting Time POC ABG pH POC ABG pCO2 POC ABG pO2 Sodium Potassium Chloride Carbon Dioxide BUN Creatinine Glucose POC Glucose 135 H 127 H 138 H Calcium Magnesium Direct Bilirubin AST ALT Alkaline Phosphatase Total Creatine Kinase CK-MB (CK-2) CK-MB (CK-2) Rel Index Troponin T C-Reactive Protein Total Protein Albumin Triglycerides Ur Specific [place] Urine WBC (Auto) Miscellaneous Test 04/29/17 04/30/17 04/30/17 23:52 04:55 12:22 WBC RBC Hgb Hct MCV MCH Plt Count Lymph % (Auto) [place] % (Auto) Eos % (Auto) Baso % (Auto) Lymph # Baso # Seg Neutrophils % Lymphocytes % (Manual) Monocytes % (Manual) Nucleated RBC % Seg Neutrophils # Seg Neutrophils # Man Monocytes # (Manual) PT INR Activated Clotting Time POC ABG pH POC ABG pCO2 POC ABG pO2 Sodium Potassium Chloride Carbon Dioxide BUN Creatinine Glucose POC Glucose 142 H 146 H 132 H Calcium Magnesium Direct Bilirubin AST ALT Alkaline Phosphatase Total Creatine Kinase CK-MB (CK-2) CK-MB (CK-2) Rel Index Troponin T C-Reactive Protein Total Protein Albumin Triglycerides Ur Specific [place] Urine WBC (Auto) Miscellaneous Test 04/30/17 04/30/17 04/30/17 14:25 17:47 18:20 WBC RBC Hgb Hct MCV MCH Plt Count Lymph % (Auto) [place] % (Auto) Eos % (Auto) Baso % (Auto) Lymph # Baso # Seg Neutrophils % Lymphocytes % (Manual) Monocytes % (Manual) Nucleated RBC % Seg Neutrophils # Seg Neutrophils # Man Monocytes # (Manual) PT INR Activated Clotting Time POC ABG pH 7.551 H POC ABG pCO2 32.7 L POC ABG pO2 Sodium Potassium Chloride Carbon Dioxide BUN 21 H Creatinine 0.2 L Glucose 141 H POC Glucose 139 H Calcium Magnesium Direct Bilirubin AST ALT Alkaline Phosphatase Total Creatine Kinase CK-MB (CK-2) CK-MB (CK-2) Rel Index Troponin T C-Reactive Protein Total Protein Albumin Triglycerides Ur Specific [place] Urine WBC (Auto) Miscellaneous Test 05/01/17 05/01/17 05/01/17 01:26 05:30 05:30 WBC RBC 3.49 L Hgb 10.3 L Hct 31.9 L MCV MCH Plt Count Lymph % (Auto) [place] % (Auto) 8.1 H Eos % (Auto) Baso % (Auto) Lymph # Baso # Seg Neutrophils % 71.3 H Lymphocytes % (Manual) Monocytes % (Manual) Nucleated RBC % Seg Neutrophils # Seg Neutrophils # Man Monocytes # (Manual) PT INR Activated Clotting Time POC ABG pH POC ABG pCO2 POC ABG pO2 Sodium 136 L Potassium Chloride 97.6 L Carbon Dioxide BUN Creatinine 0.2 L Glucose 123 H POC Glucose 116 H Calcium Magnesium Direct Bilirubin AST 71 H ALT 125 H Alkaline Phosphatase 158 H Total Creatine Kinase CK-MB (CK-2) CK-MB (CK-2) Rel Index Troponin T C-Reactive Protein Total Protein Albumin 2.6 L Triglycerides Ur Specific [place] Urine WBC (Auto) Miscellaneous Test 05/01/17 05/01/17 05/02/17 11:59 17:23 00:08 WBC RBC Hgb Hct MCV MCH Plt Count Lymph % (Auto) [place] % (Auto) Eos % (Auto) Baso % (Auto) Lymph # Baso # Seg Neutrophils % Lymphocytes % (Manual) Monocytes % (Manual) Nucleated RBC % Seg Neutrophils # Seg Neutrophils # Man Monocytes # (Manual) PT INR Activated Clotting Time POC ABG pH POC ABG pCO2 POC ABG pO2 Sodium Potassium Chloride Carbon Dioxide BUN Creatinine Glucose POC Glucose 118 H 144 H 122 H Calcium Magnesium Direct Bilirubin AST ALT Alkaline Phosphatase Total Creatine Kinase CK-MB (CK-2) CK-MB (CK-2) Rel Index Troponin T C-Reactive Protein Total Protein Albumin Triglycerides Ur Specific [place] Urine WBC (Auto) Miscellaneous Test 05/02/17 05/02/17 05/02/17 05:50 11:21 17:48 WBC RBC Hgb Hct MCV MCH Plt Count Lymph % (Auto) [place] % (Auto) Eos % (Auto) Baso % (Auto) Lymph # Baso # Seg Neutrophils % Lymphocytes % (Manual) Monocytes % (Manual) Nucleated RBC % Seg Neutrophils # Seg Neutrophils # Man Monocytes # (Manual) PT INR Activated Clotting Time POC ABG pH POC ABG pCO2 POC ABG pO2 Sodium Potassium Chloride Carbon Dioxide BUN Creatinine Glucose POC Glucose 120 H 121 H 140 H Calcium Magnesium Direct Bilirubin AST ALT Alkaline Phosphatase Total Creatine Kinase CK-MB (CK-2) CK-MB (CK-2) Rel Index Troponin T C-Reactive Protein Total Protein Albumin Triglycerides Ur Specific [place] Urine WBC (Auto) Miscellaneous Test 05/02/17 05/03/17 05/03/17 23:12 05:35 11:52 WBC RBC Hgb Hct MCV MCH Plt Count Lymph % (Auto) [place] % (Auto) Eos % (Auto) Baso % (Auto) Lymph # Baso # Seg Neutrophils % Lymphocytes % (Manual) Monocytes % (Manual) Nucleated RBC % Seg Neutrophils # Seg Neutrophils # Man Monocytes # (Manual) PT INR Activated Clotting Time POC ABG pH POC ABG pCO2 POC ABG pO2 Sodium Potassium Chloride Carbon Dioxide BUN Creatinine Glucose POC Glucose 128 H 113 H 126 H Calcium Magnesium Direct Bilirubin AST ALT Alkaline Phosphatase Total Creatine Kinase CK-MB (CK-2) CK-MB (CK-2) Rel Index Troponin T C-Reactive Protein Total Protein Albumin Triglycerides Ur Specific [place] Urine WBC (Auto) Miscellaneous Test 05/03/17 05/03/17 05/04/17 17:29 23:26 04:55 WBC RBC Hgb Hct MCV MCH Plt Count Lymph % (Auto) [place] % (Auto) Eos % (Auto) Baso % (Auto) Lymph # Baso # Seg Neutrophils % Lymphocytes % (Manual) Monocytes % (Manual) Nucleated RBC % Seg Neutrophils # Seg Neutrophils # Man Monocytes # (Manual) PT INR Activated Clotting Time POC ABG pH POC ABG pCO2 POC ABG pO2 Sodium Potassium Chloride Carbon Dioxide BUN Creatinine Glucose POC Glucose 141 H 129 H 126 H Calcium Magnesium Direct Bilirubin AST ALT Alkaline Phosphatase Total Creatine Kinase CK-MB (CK-2) CK-MB (CK-2) Rel Index Troponin T C-Reactive Protein Total Protein Albumin Triglycerides Ur Specific [place] Urine WBC (Auto) Miscellaneous Test
[2017-05-04] MEDS: ZESTRIL PO SCH (10:10)
--- NOTE | 2017-05-04 17:10 | Progress Note ---
Assessment and Plan Assessment and plan: 46 YO Male with No PMH presents to ED for evaluation. Pt is unresponsive and unable to provide history. Pt history taken from ED staff and EMS. Pt was at work today and suddenly passed out around 1050 hrs-which was witnessed by patients coworkers. EMS notified, and upon arrival the patient was found to have V Fib. Pt treated IAW ACLS protocol. The patient was given 3 defibrillations, 2 rounds of epinephrine, Narcan, and a half amp of sodium bicarbonate. Pt found to be in respiratory distress and was intubated and placed on vent support. 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 anoxic brain injury/anoxic encephalopathy/Persistent Vegetative State sp trache and PEG -awaiting insurance/medicare disability application for LTACH or SNF placement Acute Respiratory failure requiring MV >96 hours sp trache, vent dependent Anterior STEMI sp cardiac arrest with V fib Emergency cath protocol called upon arrival, we found 100% occlusion of the LAD in its prox-mid segment. Successful primari PCI-angioplasty and 3.0-3.5mm BM stents deployed. LAD flow restored-excellent result. continue medical management Aspiration PNA due to MRSA/Gram positive Sepsis completed course of abx cardiogenic Shock -now resolved Sepsis/Right lower lobe aspiration pneumonia, most likely due to gram-positive bacteria completed course of abx Hypokalemia repleted, Now resolved Hypernatremia/dehydration/free water deficit resolved with Free water replacement --Severe Protein calorie malnutrition: Peg feeds and nutrition suppliments Disposition; possible transfer to LTAC/SNF Very difficult to place, secondary to no payor source The high probability of a clinically significant, sudden or life threatening deterioration of the [Pulmonary, cardiac, renal] system(s) required my full and direct attention, intervention and personal management. The aggregate critical care time was [65] minutes. This time is in addition to time spent performing reported procedures but includes the following: [x] Data Review and interpretation [x] Patient assessment and monitoring of vital signs [x] Documentation [x] Medication orders and management History Interval history: Patient is nonresponsive, lacks most reflexes, had fever, no vomiting, no agitation Hospitalist Physical - Physical exam Narrative exam: General.: Comatose breathes over the vent HEENT: Moist mucous membranes, no LAD, Neck: supple Cardiac: S1-S2 heard Lungs: clear to auscultation bilaterally Abdomen: soft , nontender, nondistended, bowel sounds positive Extremities: no edema clubbing or cyanosis Skin: no rash or lesions Neurologic: Patient is in deep coma, lacks most reflexes, at this time, only has gag reflexs, corneal reflex is absent and decerebrate posturing, pupils are fixed and non reactive, lacks all other reflexes, opens eyes spontaneously - Constitutional Vitals: Temp Pulse Resp BP Pulse Ox 97.9 F 85 19 101/65 100 05/04/17 12:00 05/04/17 13:30 05/04/17 12:54 05/04/17 13:30 05/04/17 12:54 General appearance: Present: no acute distress, well-nourished, other ( tracheostomy on ventilatory support) Results - Labs CBC & Chem 7: 05/01/17 05:30 05/01/17 05:30 Labs: Laboratory Last Values WBC 7.8 K/mm3 (4.5-11.0) 05/01/17 05:30 RBC 3.49 M/mm3 (3.65-5.03) L 05/01/17 05:30 Hgb 10.3 gm/dl (11.8-15.2) L 05/01/17 05:30 Hct 31.9 % (35.5-45.6) L 05/01/17 05:30 MCV 92 fl (84-94) 05/01/17 05:30 MCH 30 pg (28-32) 05/01/17 05:30 MCHC 32 % (32-34) 05/01/17 05:30 RDW 15.1 % (13.2-15.2) 05/01/17 05:30 Plt Count 280 K/mm3 (140-440) 05/01/17 05:30 Lymph % (Auto) 17.7 % (13.4-35.0) 05/01/17 05:30 [place] % (Auto) 8.1 % (0.0-7.3) H 05/01/17 05:30 Eos % (Auto) 2.5 % (0.0-4.3) 05/01/17 05:30 Baso % (Auto) 0.4 % (0.0-1.8) 05/01/17 05:30 Lymph # 1.4 K/mm3 (1.2-5.4) 05/01/17 05:30 [place] # 0.6 K/mm3 (0.0-0.8) 05/01/17 05:30 Eos # 0.2 K/mm3 (0.0-0.4) 05/01/17 05:30 Baso # 0.0 K/mm3 (0.0-0.1) 05/01/17 05:30 Add Manual Diff Complete 03/30/17 03:50 Total Counted 100 03/30/17 03:50 Seg Neutrophils % 71.3 % (40.0-70.0) H 05/01/17 05:30 Seg Neuts % (Manual) 65.0 % (40.0-70.0) 03/30/17 03:50 Band Neutrophils % 17.0 % 03/30/17 03:50 Lymphocytes % (Manual) 7.0 % (13.4-35.0) L 03/30/17 03:50 Reactive Lymphs % (Man) 0 % 03/30/17 03:50 Monocytes % (Manual) 7.0 % (0.0-7.3) 03/30/17 03:50 Eosinophils % (Manual) 0 % (0.0-4.3) 03/30/17 03:50 Basophils % (Manual) 0 % (0.0-1.8) 03/30/17 03:50 Metamyelocytes % 4.0 % 03/30/17 03:50 Myelocytes % 0 % 03/30/17 03:50 Promyelocytes % 0 % 03/30/17 03:50 Blast Cells % 0 % 03/30/17 03:50 Nucleated RBC % Not Reportable 03/30/17 03:50 Seg Neutrophils # 5.6 K/mm3 (1.8-7.7) 05/01/17 05:30 Seg Neutrophils # Man 12.7 K/mm3 (1.8-7.7) H 03/30/17 03:50 Band Neutrophils # 3.3 K/mm3 03/30/17 03:50 Lymphocytes # (Manual) 1.4 K/mm3 (1.2-5.4) 03/30/17 03:50 Abs React Lymphs (Man) 0.0 K/mm3 03/30/17 03:50 Monocytes # (Manual) 1.4 K/mm3 (0.0-0.8) H 03/30/17 03:50 Eosinophils # (Manual) 0.0 K/mm3 (0.0-0.4) 03/30/17 03:50 Basophils # (Manual) 0.0 K/mm3 (0.0-0.1) 03/30/17 03:50 Metamyelocytes # 0.8 K/mm3 03/30/17 03:50 Myelocytes # 0.0 K/mm3 03/30/17 03:50 Promyelocytes # 0.0 K/mm3 03/30/17 03:50 Blast Cells # 0.0 K/mm3 03/30/17 03:50 WBC Morphology Not Reportable 03/30/17 03:50 Hypersegmented Neuts Not Reportable 03/30/17 03:50 Hyposegmented Neuts Not Reportable 03/30/17 03:50 Hypogranular Neuts Not Reportable 03/30/17 03:50 Smudge Cells Not Reportable 03/30/17 03:50 Toxic Granulation Not Reportable 03/30/17 03:50 Toxic Vacuolation Not Reportable 03/30/17 03:50 Dohle Bodies Not Reportable 03/30/17 03:50 Pelger-Huet Anomaly Not Reportable 03/30/17 03:50 Sherry Rods Not Reportable 03/30/17 03:50 Platelet Estimate Appears normal 03/30/17 03:50 Clumped Platelets Not Reportable 03/30/17 03:50 Plt Clumps, EDTA Not Reportable 03/30/17 03:50 Large Platelets Not Reportable 03/30/17 03:50 Giant Platelets Not Reportable 03/30/17 03:50 Platelet Satelliting Not Reportable 03/30/17 03:50 Plt Morphology Comment Not Reportable 03/30/17 03:50 RBC Morphology Not Reportable 03/30/17 03:50 Dimorphic RBCs Not Reportable 03/30/17 03:50 Polychromasia Not Reportable 03/30/17 03:50 Hypochromasia Not Reportable 03/30/17 03:50 Poikilocytosis Not Reportable 03/30/17 03:50 Anisocytosis Few 03/30/17 03:50 Microcytosis Not Reportable 03/30/17 03:50 Macrocytosis Not Reportable 03/30/17 03:50 Spherocytes Not Reportable 03/30/17 03:50 Pappenheimer Bodies Not Reportable 03/30/17 03:50 Sickle Cells Not Reportable 03/30/17 03:50 Target Cells Not Reportable 03/30/17 03:50 Tear Drop Cells Not Reportable 03/30/17 03:50 Ovalocytes Not Reportable 03/30/17 03:50 Helmet Cells Not Reportable 03/30/17 03:50 [place] Bodies Not Reportable 03/30/17 03:50 [place] Rings Not Reportable 03/30/17 03:50 [place] Cells Not Reportable 03/30/17 03:50 Bite Cells Not Reportable 03/30/17 03:50 Crenated Cell Not Reportable 03/30/17 03:50 Elliptocytes Not Reportable 03/30/17 03:50 Acanthocytes (Spur) Not Reportable 03/30/17 03:50 Rouleaux Not Reportable 03/30/17 03:50 Hemoglobin C Crystals Not Reportable 03/30/17 03:50 Schistocytes Not Reportable 03/30/17 03:50 Malaria parasites Not Reportable 03/30/17 03:50 [place] Bodies Not Reportable 03/30/17 03:50 Hem Pathologist Commnt No 03/30/17 03:50 PT 14.9 Sec. (12.2-14.9) 04/10/17 04:16 INR 1.11 (0.87-1.13) 04/10/17 04:16 APTT 27.8 Sec. (24.2-36.6) 04/10/17 04:16 Activated Clotting Time 92 (74-137) 03/29/17 17:47 POC ABG pH 7.551 (7.35-7.45) H 04/30/17 18:20 POC ABG pCO2 32.7 (35-45) L 04/30/17 18:20 POC ABG pO2 101 (80-105) 04/30/17 18:20 POC ABG HCO3 28.7 04/30/17 18:20 POC ABG Total CO2 30 04/30/17 18:20 POC ABG O2 Sat 99 04/30/17 18:20 POC ABG Base Excess 6 04/30/17 18:20 FiO2 30 % 04/30/17 18:20 Sodium 136 mmol/L (137-145) L 05/01/17 05:30 Potassium 3.9 mmol/L (3.6-5.0) 05/01/17 05:30 Chloride 97.6 mmol/L (98-107) L 05/01/17 05:30 Carbon Dioxide 25 mmol/L (22-30) 05/01/17 05:30 Anion Gap 17 mmol/L 05/01/17 05:30 BUN 16 mg/dL (9-20) 05/01/17 05:30 Creatinine 0.2 mg/dL (0.8-1.5) L 05/01/17 05:30 Estimated GFR > 60 ml/min 05/01/17 05:30 BUN/Creatinine Ratio 80 % 05/01/17 05:30 Glucose 123 mg/dL (75-100) H 05/01/17 05:30 POC Glucose 125 (70-105) H 05/04/17 12:09 Calcium 8.9 mg/dL (8.4-10.2) 05/01/17 05:30 Phosphorus 3.50 mg/dL (2.5-4.5) 04/13/17 04:45 Magnesium 1.80 mg/dL (1.7-2.3) 05/01/17 05:30 Total Bilirubin 0.60 mg/dL (0.1-1.2) 05/01/17 05:30 Direct Bilirubin < 0.2 mg/dL (0-0.2) 04/27/17 05:40 Indirect Bilirubin 0.3 mg/dL 04/25/17 04:51 AST 71 units/L (5-40) H 05/01/17 05:30 ALT 125 units/L (7-56) H 05/01/17 05:30 Alkaline Phosphatase 158 units/L (35-129) H 05/01/17 05:30 Total Creatine Kinase 1404 units/L (55-170) H 04/12/17 21:36 CK-MB (CK-2) 8.0 ng/mL (0.0-4.0) H 04/12/17 21:36 CK-MB (CK-2) Rel Index 0.5 (0-4) 04/12/17 21:36 Troponin T 0.767 ng/mL (0.00-0.029) H* 04/12/17 21:36 C-Reactive Protein 21.80 mg/dL (0.00-1.30) H 03/30/17 16:04 Total Protein 6.7 g/dL (6.3-8.2) 05/01/17 05:30 Albumin 2.6 g/dL (3.9-5) L 05/01/17 05:30 Albumin/Globulin Ratio 0.6 % 05/01/17 05:30 Triglycerides 151 mg/dL (2-149) H 04/01/17 04:29 Cholesterol 164 mg/dL (50-199) 03/29/17 19:52 LDL Cholesterol Direct 81 mg/dL (50-130) 03/29/17 19:52 HDL Cholesterol 44 mg/dL (40-59) 03/29/17 19:52 Cholesterol/HDL Ratio 3.72 % 03/29/17 19:52 Urine Color [place] (Yellow) 04/21/17 22:00 Urine Turbidity Clear (Clear) 04/21/17 22:00 Urine pH 5.0 (5.0-7.0) 04/21/17 22:00 Ur Specific [place] 1.029 (1.003-1.030) 04/21/17 22:00 Urine Protein 30 mg/dl mg/dL (Negative) 04/21/17 22:00 Urine Glucose (UA) Neg mg/dL (Negative) 04/21/17 22:00 Urine Ketones Neg mg/dL (Negative) 04/21/17 22:00 Urine Blood Mod (Negative) 04/21/17 22:00 Urine Nitrite Neg (Negative) 04/21/17 22:00 Urine Bilirubin Neg (Negative) 04/21/17 22:00 Urine Urobilinogen 4.0 mg/dL (<2.0) 04/21/17 22:00 Ur Leukocyte Esterase Neg (Negative) 04/21/17 22:00 Urine WBC (Auto) 10.0 /HPF (0.0-6.0) H 04/21/17 22:00 Urine RBC (Auto) 44.0 /HPF (0.0-6.0) 04/21/17 22:00 U Epithel Cells (Auto) < 1.0 /HPF (0-13.0) 04/21/17 22:00 Amorphous Crystals 1+ 03/30/17 09:45 Urine Mucus 3+ /HPF 04/21/17 22:00 Urine Opiates Screen Presumptive negative 03/30/17 09:45 Urine Methadone Screen Presumptive negative 03/30/17 09:45 Ur Barbiturates Screen Presumptive negative 03/30/17 09:45 Ur Phencyclidine Scrn Presumptive negative 03/30/17 09:45 Ur Amphetamines Screen Presumptive positive 03/30/17 09:45 U Benzodiazepines Scrn Presumptive positive 03/30/17 09:45 Urine Cocaine Screen Presumptive negative 03/30/17 09:45 U Marijuana (THC) Screen Presumptive negative 03/30/17 09:45 Drugs of Abuse Note Disclamer 03/30/17 09:45 Miscellaneous Test Flexitest 1 H 04/25/17 07:07 Blood Type O POSITIVE 03/29/17 11:35 Antibody Screen Negative 03/29/17 11:35
[2017-05-05] MEDS: LOPRESSOR PO SCH ×4 (00:32→18:24)
[2017-05-05] MEDS: NOVOLOG SUB-Q SCH ×4 (05:56→18:25)
[2017-05-05] MEDS: ASPIRIN PO SCH (10:44)
[2017-05-05] MEDS: PLAVIX PO SCH (10:44)
[2017-05-05] MEDS: HEPARIN SUB-Q SCH ×2 (10:44→22:05)
[2017-05-05] MEDS: PROTONIX FEEDTUBE SCH (10:44)
[2017-05-05] MEDS: CORDARONE PO SCH ×2 (10:44→22:05)
[2017-05-05] MEDS: ZESTRIL PO SCH (10:45)
--- NOTE | 2017-05-05 11:26 | Progress Note ---
Assessment and Plan - Patient Problems (1) Acute respiratory failure Current Visit: Yes Status: Acute (2) Anoxic brain injury Current Visit: Yes Status: Acute (3) CAD (coronary artery disease) Current Visit: Yes Status: Acute Qualifiers: Coronary Disease-Associated Artery/Lesion type: [place] artery [place] vs. transplanted heart: [place] heart Associated angina: with unstable angina Qualified Code(s): I25.110 - Atherosclerotic heart disease of [place] coronary artery with unstable angina pectoris (4) Cardiac arrest Current Visit: Yes Status: Acute Subjective Principal diagnosis: Acute [place] Interval history: on vent. tolerating psv Objective - Exam Narrative Exam: psv ps10 p5 - Constitutional Vitals: Vital Signs - 12hr 05/05/17 05/05/17 05/05/17 00:00 00:02 00:32 Temperature Pulse Rate 82 80 Pulse Rate [ 84 From Monitor] Respiratory 21 19 Rate Blood Pressure 95/58 95/58 90/50 O2 Sat by Pulse 97 99 Oximetry O2 Sat by Pulse Oximetry [ Assessment] 05/05/17 05/05/17 05/05/17 00:41 02:00 04:00 Temperature 98.0 F Pulse Rate 80 99 H Pulse Rate [ From Monitor] Respiratory 19 23 Rate Blood Pressure 95/58 109/76 O2 Sat by Pulse Oximetry O2 Sat by Pulse Oximetry [ Assessment] 05/05/17 05/05/17 05/05/17 04:19 06:00 06:19 Temperature 97.7 F Pulse Rate 98 H 92 H Pulse Rate [ From Monitor] Respiratory 22 Rate Blood Pressure 109/76 94/60 O2 Sat by Pulse 98 Oximetry O2 Sat by Pulse Oximetry [ Assessment] 05/05/17 05/05/17 05/05/17 06:41 08:00 08:30 Temperature 97.9 F Pulse Rate 88 Pulse Rate [ From Monitor] Respiratory 20 Rate Blood Pressure 94/50 93/59 O2 Sat by Pulse Oximetry O2 Sat by Pulse 100 Oximetry [ Assessment] 05/05/17 05/05/17 05/05/17 08:39 09:30 10:00 Temperature Pulse Rate 87 83 89 Pulse Rate [ From Monitor] Respiratory 11 L 20 Rate Blood Pressure 93/59 93/59 92/57 O2 Sat by Pulse 100 100 Oximetry O2 Sat by Pulse Oximetry [ Assessment] 05/05/17 10:45 Temperature Pulse Rate 85 Pulse Rate [ From Monitor] Respiratory Rate Blood Pressure 92/57 O2 Sat by Pulse Oximetry O2 Sat by Pulse Oximetry [ Assessment] General appearance: Present: no acute distress, other (critically ill on vent) - Respiratory Respiratory effort: normal Respiratory: negative: rhonchi (rare) - Breasts Breasts: deferred - Cardiovascular Rhythm: regular Heart Sounds: Present: S1 & S2 Extremities: no ischemia - Gastrointestinal General gastrointestinal: Present: soft, non-tender, non-distended, normal bowel sounds - Genitourinary Male genitourinary: deferred - Integumentary Integumentary: warm - Musculoskeletal Musculoskeletal: other (on vent) - Neurologic Neurologic: other (on vent) - Labs CBC & Chem 7: 05/01/17 05:30 05/01/17 05:30 Labs: Abnormal lab results 05/04/17 05/04/17 05/05/17 Range/Units 12:09 17:46 00:06 POC Glucose 125 H 125 H 110 H (70-105) 05/05/17 Range/Units 05:48 POC Glucose 124 H (70-105)
--- NOTE | 2017-05-05 14:07 | Cat Scan Report ---
CT HEAD WITHOUT CONTRAST: 03/29/17 12:55:00 CLINICAL: Coma. TECHNIQUE: 2.5-mm noncontrast scans. COMPARISON:03/31/17 and 04/04/17 FINDINGS: Resolution of pronounced diffuse cerebral edema since the last exams. The ventricles have enlarged and the frontal and temporal lobe sulci have enlarged. Relatively symmetric bilateral posterior parietal and occipital cortical hyperdensities are consistent with cortical laminar necrosis. The adjacent white matter in the involved areas is hypodense. Bilateral globus pallidus hyperdensities are new. No suspicious focal hypodensity. No mass or mass effect. No acute hemorrhage, edema or extra-axial collection. The sinuses are clear. Normal orbits and soft tissues. The calvarium and skull base are intact. IMPRESSION: 1. Pronounced frontal and temporal lobe cortical atrophy with commensurate ventriculomegaly has developed along with resolution of cerebral edema since the prior exams. 2. 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 3. No acute changes.
[2017-05-05] MEDS: TRANSDERM-SCOP TD SCH (14:09)
--- NOTE | 2017-05-05 16:08 | Progress Note ---
Assessment and Plan Impression: 1. Hypoxic ischemic encephalopathy Plan: 1. I suggested to the family that they call Dr. Gay (the next neurologist on duty on ) next week if they see him in a more awake state and think that he is blinking to command or opening or closing his eyes or looking at family command, for her to witness it. If that doesn't occur in the next [address] Gay is here, I told them they could ask Dr. Jimenes (neurologist on weekdays that week) to see him if he is blinking to command. Otherwise I think I will be on the week after Dr. Jimenes. 2. Could consider trial of Ambien which has waked up some coma patients (less than 8%) or if that fails, could try amantadine or modafinil (or armodafinil). 3. When asked about disability forms, I deferred to Dr. Garay. 40 minutes critical care time spent with this patient including review of many CT scan images. Subjective Date of service: 05/05/17 Principal diagnosis: coma Interval history: Chief complaint: Coma History of present illness: This 46-year-old male is seen again in follow-up. His family thinks he blinks twice to command at times when he is not sleepy. At a family conference today where I was present, the plan we formulated was to repeat his EEG and then have me reexamine him. His EEG shows no clear cerebral activity though there is some noise from EMG and a noisy F8 electrode. I explained this to the family today. Because a CT scan was never repeated after edema was expected to have resolved, I ordered one for today. 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 Atrophy is global not just posteriorly. There is some hypodensity of the putamen bilaterally. This is in contrast to global swelling seen on CT scan of April 04 and March 31. I explained to the family that this indicates significant damage anteriorly and posteriorly in the upper brain even though some of his brainstem is working. Objective - Exam Narrative Exam: Gen. appearance: Well-developed but borderline overweight (per BMI) mid 40s male with eyes intermittently open, status post tracheotomy, on ventilator. I examined him first and then later with the family tried to get him to do blinking to command and to close his eyes or open his eyes to command and to look at them. Neurologic Exam: Mental Status: Opens eyes to pain or voice no clear obedience of commands. When asked to blink twice daily blink several times but not clearly to command and does not close his eyes in any consistent fashion or open them in any consistent fashion to command. He seems to turn his head to the right to look at his brother not to the left though he cannot hear on the left according to his family. He seems sleepy overall compared to other times when he is more alert, as the family also agrees. Cranial Nerves: No blink to threat visually, pupils react to light but left is 3 mm compared to right at 2 mm, EOMs full to doll's eyes but does not track me respond to commands to look in any direction, corneals are positive on the left but not the right although he turns his head seemingly to avoid the stimulus with right-sided testing, no grimace to supraorbital pressure or to pinprick, cannot assess hearing but turns his head to the right when left ear is touched due to a sore there, gag is absent to oral suctioning but cough is present to tracheal suctioning. Cannot assess shoulder shrug or tongue protrusion. Has some chewing motions did not show any activity during earlier EEG when the same motions were noted. Cerebellar: Cannot be assessed. Sensory: No response to pinprick or nailbed pressure but flexes left arm with palmar rub and has some truncal bending forward with palmar rub on the right. Motor Exam Upper Extremities: Flexes his right upper extremity to neck skin pinch on the left and opens his eyes to the pain. Adducts both arms with neck skin pinch on the right. Tone is a little increased bilaterally. Motor Exam Lower Extremities: Withdraws both legs at the knees to plantar rub. Tone is normal. Reflexes (Selected): Bilateral ankle clonus, sustained. Toes are bilaterally upgoing to Babinski testing. - Vital Sign Vital Signs - 12hr 05/05/17 05/05/17 05/05/17 04:00 04:19 06:00 Temperature Pulse Rate 99 H 98 H 92 H Pulse Rate [ From Monitor] Respiratory 23 22 Rate Blood Pressure 109/76 109/76 94/60 O2 Sat by Pulse 98 Oximetry O2 Sat by Pulse Oximetry [ Assessment] 02/09/18 02/09/18 02/09/18 06:19 06:41 08:00 Temperature 97.7 F 97.9 F Pulse Rate 88 Pulse Rate [ 85 From Monitor] Respiratory 22 Rate Blood Pressure 94/50 93/59 O2 Sat by Pulse 100 Oximetry O2 Sat by Pulse Oximetry [ Assessment] 05/05/17 05/05/17 05/05/17 08:30 08:39 09:30 Temperature Pulse Rate 87 83 Pulse Rate [ From Monitor] Respiratory 11 L Rate Blood Pressure 93/59 93/59 O2 Sat by Pulse 100 100 Oximetry O2 Sat by Pulse 100 Oximetry [ Assessment] 05/05/17 05/05/17 05/05/17 10:00 10:45 11:58 Temperature Pulse Rate 85 85 Pulse Rate [ 84 From Monitor] Respiratory 20 Rate Blood Pressure 92/57 92/57 O2 Sat by Pulse Oximetry O2 Sat by Pulse Oximetry [ Assessment] 05/05/17 05/05/17 05/05/17 12:00 15:09 15:12 Temperature 97.8 F Pulse Rate 92 H 88 Pulse Rate [ From Monitor] Respiratory 17 Rate Blood Pressure 92/57 O2 Sat by Pulse 100 98 Oximetry O2 Sat by Pulse 97 Oximetry [ Assessment] - Laboratory Findings CBC and BMP: 05/01/17 05:30 05/01/17 05:30 Abnormal Lab Findings: Abnormal Labs 03/29/17 03/29/17 03/29/17 11:35 11:35 11:40 WBC RBC Hgb Hct MCV 98 H MCH 33 H Plt Count Lymph % (Auto) [place] % (Auto) Eos % (Auto) Baso % (Auto) Lymph # Baso # Seg Neutrophils % Lymphocytes % (Manual) Monocytes % (Manual) 9.0 H Nucleated RBC % 1.0 H Seg Neutrophils # Seg Neutrophils # Man Monocytes # (Manual) 0.9 H PT 15.8 H INR 1.20 H Activated Clotting Time POC ABG pH POC ABG pCO2 POC ABG pO2 Sodium Potassium 2.7 L* Chloride 95.3 L Carbon Dioxide 17 L BUN Creatinine Glucose 435 H POC Glucose Calcium Magnesium Direct Bilirubin AST ALT Alkaline Phosphatase Total Creatine Kinase CK-MB (CK-2) CK-MB (CK-2) Rel Index Troponin T C-Reactive Protein Total Protein 6.1 L Albumin 3.5 L Triglycerides Ur Specific [place] Urine WBC (Auto) Miscellaneous Test 03/29/17 03/29/17 03/29/17 12:34 13:10 13:25 WBC RBC Hgb Hct MCV MCH Plt Count Lymph % (Auto) [place] % (Auto) Eos % (Auto) Baso % (Auto) Lymph # Baso # Seg Neutrophils % Lymphocytes % (Manual) Monocytes % (Manual) Nucleated RBC % Seg Neutrophils # Seg Neutrophils # Man Monocytes # (Manual) PT INR Activated Clotting Time 142 H 169 H 175 H POC ABG pH POC ABG pCO2 POC ABG pO2 Sodium Potassium Chloride Carbon Dioxide BUN Creatinine Glucose POC Glucose Calcium Magnesium Direct Bilirubin AST ALT Alkaline Phosphatase Total Creatine Kinase CK-MB (CK-2) CK-MB (CK-2) Rel Index Troponin T C-Reactive Protein Total Protein Albumin Triglycerides Ur Specific [place] Urine WBC (Auto) Miscellaneous Test 03/29/17 03/29/17 03/29/17 14:50 15:18 19:52 WBC RBC Hgb Hct MCV MCH Plt Count Lymph % (Auto) [place] % (Auto) Eos % (Auto) Baso % (Auto) Lymph # Baso # Seg Neutrophils % Lymphocytes % (Manual) Monocytes % (Manual) Nucleated RBC % Seg Neutrophils # Seg Neutrophils # Man Monocytes # (Manual) PT INR Activated Clotting Time 175 H POC ABG pH 7.293 L POC ABG pCO2 POC ABG pO2 602 H Sodium Potassium Chloride Carbon Dioxide BUN Creatinine Glucose POC Glucose Calcium Magnesium Direct Bilirubin AST ALT Alkaline Phosphatase Total Creatine Kinase 7263 H CK-MB (CK-2) > 300.0 H CK-MB (CK-2) Rel Index 4.1 H Troponin T 8.080 H* D C-Reactive Protein Total Protein Albumin Triglycerides 195 H Ur Specific [place] Urine WBC (Auto) Miscellaneous Test 03/30/17 03/30/17 03/30/17 03:50 03:50 06:19 WBC 19.5 H RBC Hgb Hct MCV MCH Plt Count Lymph % (Auto) [place] % (Auto) Eos % (Auto) Baso % (Auto) Lymph # Baso # Seg Neutrophils % Lymphocytes % (Manual) 7.0 L Monocytes % (Manual) Nucleated RBC % Seg Neutrophils # Seg Neutrophils # Man 12.7 H Monocytes # (Manual) 1.4 H PT INR Activated Clotting Time POC ABG pH POC ABG pCO2 28.2 L POC ABG pO2 108 H Sodium Potassium Chloride 108.9 H Carbon Dioxide 15 L BUN 25 H Creatinine Glucose 158 H POC Glucose Calcium 8.1 L Magnesium Direct Bilirubin AST ALT Alkaline Phosphatase Total Creatine Kinase 7963 H CK-MB (CK-2) > 300.0 H CK-MB (CK-2) Rel Index Troponin T 6.850 H* C-Reactive Protein Total Protein Albumin Triglycerides Ur Specific [place] Urine WBC (Auto) Miscellaneous Test 03/30/17 03/30/17 03/31/17 09:45 16:04 02:19 WBC RBC Hgb Hct MCV MCH Plt Count Lymph % (Auto) [place] % (Auto) Eos % (Auto) Baso % (Auto) Lymph # Baso # Seg Neutrophils % Lymphocytes % (Manual) Monocytes % (Manual) Nucleated RBC % Seg Neutrophils # Seg Neutrophils # Man Monocytes # (Manual) PT INR Activated Clotting Time POC ABG pH POC ABG pCO2 POC ABG pO2 Sodium Potassium Chloride Carbon Dioxide BUN Creatinine Glucose POC Glucose 137 H Calcium Magnesium Direct Bilirubin AST ALT Alkaline Phosphatase Total Creatine Kinase CK-MB (CK-2) CK-MB (CK-2) Rel Index Troponin T C-Reactive Protein 21.80 H Total Protein Albumin Triglycerides Ur Specific [place] 1.031 H Urine WBC (Auto) Miscellaneous Test 03/31/17 03/31/17 03/31/17 03:57 06:54 09:22 WBC RBC Hgb Hct MCV MCH Plt Count Lymph % (Auto) [place] % (Auto) Eos % (Auto) Baso % (Auto) Lymph # Baso # Seg Neutrophils % Lymphocytes % (Manual) Monocytes % (Manual) Nucleated RBC % Seg Neutrophils # Seg Neutrophils # Man Monocytes # (Manual) PT INR Activated Clotting Time POC ABG pH 7.475 H POC ABG pCO2 25.4 L POC ABG pO2 62 L Sodium Potassium Chloride Carbon Dioxide 19 L BUN 22 H Creatinine 0.6 L Glucose 148 H POC Glucose 143 H Calcium 8.3 L Magnesium Direct Bilirubin AST ALT Alkaline Phosphatase Total Creatine Kinase CK-MB (CK-2) CK-MB (CK-2) Rel Index Troponin T C-Reactive Protein Total Protein Albumin Triglycerides Ur Specific [place] Urine WBC (Auto) Miscellaneous Test 03/31/17 03/31/17 03/31/17 11:40 17:47 23:38 WBC RBC Hgb Hct MCV MCH Plt Count Lymph % (Auto) [place] % (Auto) Eos % (Auto) Baso % (Auto) Lymph # Baso # Seg Neutrophils % Lymphocytes % (Manual) Monocytes % (Manual) Nucleated RBC % Seg Neutrophils # Seg Neutrophils # Man Monocytes # (Manual) PT INR Activated Clotting Time POC ABG pH POC ABG pCO2 POC ABG pO2 Sodium Potassium Chloride Carbon Dioxide BUN Creatinine Glucose POC Glucose 127 H 137 H 148 H Calcium Magnesium Direct Bilirubin AST ALT Alkaline Phosphatase Total Creatine Kinase CK-MB (CK-2) CK-MB (CK-2) Rel Index Troponin T C-Reactive Protein Total Protein Albumin Triglycerides Ur Specific [place] Urine WBC (Auto) Miscellaneous Test 04/01/17 04/01/17 04/01/17 04:29 05:01 11:54 WBC RBC Hgb Hct MCV MCH Plt Count Lymph % (Auto) [place] % (Auto) Eos % (Auto) Baso % (Auto) Lymph # Baso # Seg Neutrophils % Lymphocytes % (Manual) Monocytes % (Manual) Nucleated RBC % Seg Neutrophils # Seg Neutrophils # Man Monocytes # (Manual) PT INR Activated Clotting Time POC ABG pH 7.513 H POC ABG pCO2 22.1 L POC ABG pO2 64 L Sodium Potassium Chloride Carbon Dioxide BUN Creatinine Glucose POC Glucose 121 H Calcium Magnesium Direct Bilirubin AST ALT Alkaline Phosphatase Total Creatine Kinase CK-MB (CK-2) CK-MB (CK-2) Rel Index Troponin T C-Reactive Protein Total Protein Albumin Triglycerides 151 H Ur Specific [place] Urine WBC (Auto) Miscellaneous Test 04/01/17 04/02/17 04/02/17 18:17 00:11 04:52 WBC RBC Hgb Hct MCV MCH Plt Count Lymph % (Auto) [place] % (Auto) Eos % (Auto) Baso % (Auto) Lymph # Baso # Seg Neutrophils % Lymphocytes % (Manual) Monocytes % (Manual) Nucleated RBC % Seg Neutrophils # Seg Neutrophils # Man Monocytes # (Manual) PT INR Activated Clotting Time POC ABG pH 7.524 H POC ABG pCO2 25.5 L POC ABG pO2 66 L Sodium Potassium Chloride Carbon Dioxide BUN Creatinine Glucose POC Glucose 117 H 122 H Calcium Magnesium Direct Bilirubin AST ALT Alkaline Phosphatase Total Creatine Kinase CK-MB (CK-2) CK-MB (CK-2) Rel Index Troponin T C-Reactive Protein Total Protein Albumin Triglycerides Ur Specific [place] Urine WBC (Auto) Miscellaneous Test 04/02/17 04/02/17 04/02/17 05:18 10:41 12:19 WBC RBC Hgb Hct MCV MCH Plt Count Lymph % (Auto) [place] % (Auto) Eos % (Auto) Baso % (Auto) Lymph # Baso # Seg Neutrophils % Lymphocytes % (Manual) Monocytes % (Manual) Nucleated RBC % Seg Neutrophils # Seg Neutrophils # Man Monocytes # (Manual) PT INR Activated Clotting Time POC ABG pH 7.534 H POC ABG pCO2 27.4 L POC ABG pO2 Sodium Potassium Chloride Carbon Dioxide BUN Creatinine Glucose POC Glucose 132 H 129 H Calcium Magnesium Direct Bilirubin AST ALT Alkaline Phosphatase Total Creatine Kinase CK-MB (CK-2) CK-MB (CK-2) Rel Index Troponin T C-Reactive Protein Total Protein Albumin Triglycerides Ur Specific [place] Urine WBC (Auto) Miscellaneous Test 04/02/17 04/03/17 04/03/17 18:05 00:08 05:09 WBC RBC Hgb Hct MCV MCH Plt Count Lymph % (Auto) [place] % (Auto) Eos % (Auto) Baso % (Auto) Lymph # Baso # Seg Neutrophils % Lymphocytes % (Manual) Monocytes % (Manual) Nucleated RBC % Seg Neutrophils # Seg Neutrophils # Man Monocytes # (Manual) PT INR Activated Clotting Time POC ABG pH 7.455 H POC ABG pCO2 33.2 L POC ABG pO2 120 H Sodium Potassium Chloride Carbon Dioxide BUN Creatinine Glucose POC Glucose 136 H 128 H Calcium Magnesium Direct Bilirubin AST ALT Alkaline Phosphatase Total Creatine Kinase CK-MB (CK-2) CK-MB (CK-2) Rel Index Troponin T C-Reactive Protein Total Protein Albumin Triglycerides Ur Specific [place] Urine WBC (Auto) Miscellaneous Test 04/03/17 04/03/17 04/03/17 06:32 11:54 12:16 WBC 11.9 H RBC Hgb Hct MCV MCH Plt Count 125 L Lymph % (Auto) 4.8 L [place] % (Auto) Eos % (Auto) Baso % (Auto) Lymph # 0.6 L Baso # Seg Neutrophils % 86.7 H Lymphocytes % (Manual) Monocytes % (Manual) Nucleated RBC % Seg Neutrophils # 10.3 H Seg Neutrophils # Man Monocytes # (Manual) PT INR Activated Clotting Time POC ABG pH POC ABG pCO2 POC ABG pO2 Sodium Potassium Chloride Carbon Dioxide BUN Creatinine Glucose POC Glucose 138 H 143 H Calcium Magnesium Direct Bilirubin AST ALT Alkaline Phosphatase Total Creatine Kinase CK-MB (CK-2) CK-MB (CK-2) Rel Index Troponin T C-Reactive Protein Total Protein Albumin Triglycerides Ur Specific [place] Urine WBC (Auto) Miscellaneous Test 04/03/17 04/03/17 04/04/17 17:33 23:59 04:34 WBC RBC Hgb Hct MCV MCH Plt Count Lymph % (Auto) [place] % (Auto) Eos % (Auto) Baso % (Auto) Lymph # Baso # Seg Neutrophils % Lymphocytes % (Manual) Monocytes % (Manual) Nucleated RBC % Seg Neutrophils # Seg Neutrophils # Man Monocytes # (Manual) PT INR Activated Clotting Time POC ABG pH 7.457 H POC ABG pCO2 29.8 L POC ABG pO2 76 L Sodium Potassium Chloride Carbon Dioxide BUN Creatinine Glucose POC Glucose 130 H 155 H Calcium Magnesium Direct Bilirubin AST ALT Alkaline Phosphatase Total Creatine Kinase CK-MB (CK-2) CK-MB (CK-2) Rel Index Troponin T C-Reactive Protein Total Protein Albumin Triglycerides Ur Specific [place] Urine WBC (Auto) Miscellaneous Test 04/04/17 04/04/17 04/04/17 05:27 12:22 18:18 WBC RBC Hgb Hct MCV MCH Plt Count Lymph % (Auto) [place] % (Auto) Eos % (Auto) Baso % (Auto) Lymph # Baso # Seg Neutrophils % Lymphocytes % (Manual) Monocytes % (Manual) Nucleated RBC % Seg Neutrophils # Seg Neutrophils # Man Monocytes # (Manual) PT INR Activated Clotting Time POC ABG pH POC ABG pCO2 POC ABG pO2 Sodium Potassium Chloride Carbon Dioxide BUN Creatinine Glucose POC Glucose 164 H 146 H 130 H Calcium Magnesium Direct Bilirubin AST ALT Alkaline Phosphatase Total Creatine Kinase CK-MB (CK-2) CK-MB (CK-2) Rel Index Troponin T C-Reactive Protein Total Protein Albumin Triglycerides Ur Specific [place] Urine WBC (Auto) Miscellaneous Test 04/05/17 04/05/17 04/05/17 04:43 05:28 11:36 WBC RBC Hgb Hct MCV MCH Plt Count Lymph % (Auto) [place] % (Auto) Eos % (Auto) Baso % (Auto) Lymph # Baso # Seg Neutrophils % Lymphocytes % (Manual) Monocytes % (Manual) Nucleated RBC % Seg Neutrophils # Seg Neutrophils # Man Monocytes # (Manual) PT INR Activated Clotting Time POC ABG pH 7.479 H POC ABG pCO2 33.5 L POC ABG pO2 76 L Sodium Potassium Chloride Carbon Dioxide BUN Creatinine Glucose POC Glucose 145 H 136 H Calcium Magnesium Direct Bilirubin AST ALT Alkaline Phosphatase Total Creatine Kinase CK-MB (CK-2) CK-MB (CK-2) Rel Index Troponin T C-Reactive Protein Total Protein Albumin Triglycerides Ur Specific [place] Urine WBC (Auto) Miscellaneous Test 04/05/17 04/06/17 04/06/17 17:58 00:16 05:26 WBC RBC Hgb Hct MCV MCH Plt Count Lymph % (Auto) [place] % (Auto) Eos % (Auto) Baso % (Auto) Lymph # Baso # Seg Neutrophils % Lymphocytes % (Manual) Monocytes % (Manual) Nucleated RBC % Seg Neutrophils # Seg Neutrophils # Man Monocytes # (Manual) PT INR Activated Clotting Time POC ABG pH POC ABG pCO2 POC ABG pO2 Sodium Potassium Chloride Carbon Dioxide BUN Creatinine Glucose POC Glucose 130 H 159 H 146 H Calcium Magnesium Direct Bilirubin AST ALT Alkaline Phosphatase Total Creatine Kinase CK-MB (CK-2) CK-MB (CK-2) Rel Index Troponin T C-Reactive Protein Total Protein Albumin Triglycerides Ur Specific [place] Urine WBC (Auto) Miscellaneous Test 04/06/17 04/06/17 04/07/17 13:11 16:54 11:45 WBC RBC Hgb Hct MCV MCH Plt Count Lymph % (Auto) [place] % (Auto) Eos % (Auto) Baso % (Auto) Lymph # Baso # Seg Neutrophils % Lymphocytes % (Manual) Monocytes % (Manual) Nucleated RBC % Seg Neutrophils # Seg Neutrophils # Man Monocytes # (Manual) PT INR Activated Clotting Time POC ABG pH 7.517 H POC ABG pCO2 32.1 L POC ABG pO2 Sodium Potassium Chloride Carbon Dioxide BUN Creatinine Glucose POC Glucose 132 H 123 H Calcium Magnesium Direct Bilirubin AST ALT Alkaline Phosphatase Total Creatine Kinase CK-MB (CK-2) CK-MB (CK-2) Rel Index Troponin T C-Reactive Protein Total Protein Albumin Triglycerides Ur Specific [place] Urine WBC (Auto) Miscellaneous Test 04/07/17 04/07/17 04/07/17 12:51 17:40 23:55 WBC RBC Hgb Hct MCV MCH Plt Count Lymph % (Auto) [place] % (Auto) Eos % (Auto) Baso % (Auto) Lymph # Baso # Seg Neutrophils % Lymphocytes % (Manual) Monocytes % (Manual) Nucleated RBC % Seg Neutrophils # Seg Neutrophils # Man Monocytes # (Manual) PT INR Activated Clotting Time POC ABG pH POC ABG pCO2 POC ABG pO2 Sodium Potassium Chloride Carbon Dioxide BUN Creatinine Glucose POC Glucose 138 H 154 H 143 H Calcium Magnesium Direct Bilirubin AST ALT Alkaline Phosphatase Total Creatine Kinase CK-MB (CK-2) CK-MB (CK-2) Rel Index Troponin T C-Reactive Protein Total Protein Albumin Triglycerides Ur Specific [place] Urine WBC (Auto) Miscellaneous Test 04/08/17 04/08/17 04/08/17 05:27 11:14 17:44 WBC RBC Hgb Hct MCV MCH Plt Count Lymph % (Auto) [place] % (Auto) Eos % (Auto) Baso % (Auto) Lymph # Baso # Seg Neutrophils % Lymphocytes % (Manual) Monocytes % (Manual) Nucleated RBC % Seg Neutrophils # Seg Neutrophils # Man Monocytes # (Manual) PT INR Activated Clotting Time POC ABG pH POC ABG pCO2 POC ABG pO2 Sodium Potassium Chloride Carbon Dioxide BUN Creatinine Glucose POC Glucose 142 H 153 H 129 H Calcium Magnesium Direct Bilirubin AST ALT Alkaline Phosphatase Total Creatine Kinase CK-MB (CK-2) CK-MB (CK-2) Rel Index Troponin T C-Reactive Protein Total Protein Albumin Triglycerides Ur Specific [place] Urine WBC (Auto) Miscellaneous Test 04/09/17 04/09/17 04/09/17 08:20 11:21 17:37 WBC RBC Hgb Hct MCV MCH Plt Count Lymph % (Auto) [place] % (Auto) Eos % (Auto) Baso % (Auto) Lymph # Baso # Seg Neutrophils % Lymphocytes % (Manual) Monocytes % (Manual) Nucleated RBC % Seg Neutrophils # Seg Neutrophils # Man Monocytes # (Manual) PT INR Activated Clotting Time POC ABG pH POC ABG pCO2 POC ABG pO2 Sodium 147 H Potassium Chloride 108.8 H Carbon Dioxide BUN 39 H Creatinine 0.5 L Glucose 138 H POC Glucose 152 H 109 H Calcium Magnesium Direct Bilirubin AST ALT Alkaline Phosphatase Total Creatine Kinase CK-MB (CK-2) CK-MB (CK-2) Rel Index Troponin T C-Reactive Protein Total Protein Albumin Triglycerides Ur Specific [place] Urine WBC (Auto) Miscellaneous Test 04/10/17 04/10/17 04/10/17 00:13 04:16 04:16 WBC RBC Hgb 11.5 L Hct MCV 96 H MCH Plt Count 103 L Lymph % (Auto) 11.1 L [place] % (Auto) Eos % (Auto) Baso % (Auto) Lymph # Baso # Seg Neutrophils % 81.5 H Lymphocytes % (Manual) Monocytes % (Manual) Nucleated RBC % Seg Neutrophils # 8.8 H Seg Neutrophils # Man Monocytes # (Manual) PT INR Activated Clotting Time POC ABG pH POC ABG pCO2 POC ABG pO2 Sodium 148 H Potassium Chloride 109.0 H Carbon Dioxide BUN 36 H Creatinine 0.5 L Glucose 131 H POC Glucose 127 H Calcium 8.1 L Magnesium 2.40 H Direct Bilirubin AST 206 H ALT 228 H Alkaline Phosphatase 178 H Total Creatine Kinase CK-MB (CK-2) CK-MB (CK-2) Rel Index Troponin T C-Reactive Protein Total Protein Albumin 2.8 L Triglycerides Ur Specific [place] Urine WBC (Auto) Miscellaneous Test 04/10/17 04/10/17 04/10/17 06:01 11:57 18:27 WBC RBC Hgb Hct MCV MCH Plt Count Lymph % (Auto) [place] % (Auto) Eos % (Auto) Baso % (Auto) Lymph # Baso # Seg Neutrophils % Lymphocytes % (Manual) Monocytes % (Manual) Nucleated RBC % Seg Neutrophils # Seg Neutrophils # Man Monocytes # (Manual) PT INR Activated Clotting Time POC ABG pH POC ABG pCO2 POC ABG pO2 Sodium Potassium Chloride Carbon Dioxide BUN Creatinine Glucose POC Glucose 108 H 154 H 130 H Calcium Magnesium Direct Bilirubin AST ALT Alkaline Phosphatase Total Creatine Kinase CK-MB (CK-2) CK-MB (CK-2) Rel Index Troponin T C-Reactive Protein Total Protein Albumin Triglycerides Ur Specific [place] Urine WBC (Auto) Miscellaneous Test 04/11/17 04/11/17 04/12/17 12:25 17:10 00:22 WBC RBC Hgb Hct MCV MCH Plt Count Lymph % (Auto) [place] % (Auto) Eos % (Auto) Baso % (Auto) Lymph # Baso # Seg Neutrophils % Lymphocytes % (Manual) Monocytes % (Manual) Nucleated RBC % Seg Neutrophils # Seg Neutrophils # Man Monocytes # (Manual) PT INR Activated Clotting Time POC ABG pH POC ABG pCO2 POC ABG pO2 Sodium Potassium Chloride Carbon Dioxide BUN Creatinine Glucose POC Glucose 107 H 129 H 128 H Calcium Magnesium Direct Bilirubin AST ALT Alkaline Phosphatase Total Creatine Kinase CK-MB (CK-2) CK-MB (CK-2) Rel Index Troponin T C-Reactive Protein Total Protein Albumin Triglycerides Ur Specific [place] Urine WBC (Auto) Miscellaneous Test 04/12/17 04/12/17 04/12/17 05:00 11:57 17:47 WBC RBC Hgb Hct MCV MCH Plt Count Lymph % (Auto) [place] % (Auto) Eos % (Auto) Baso % (Auto) Lymph # Baso # Seg Neutrophils % Lymphocytes % (Manual) Monocytes % (Manual) Nucleated RBC % Seg Neutrophils # Seg Neutrophils # Man Monocytes # (Manual) PT INR Activated Clotting Time POC ABG pH POC ABG pCO2 POC ABG pO2 Sodium Potassium Chloride Carbon Dioxide BUN Creatinine Glucose POC Glucose 140 H 142 H Calcium Magnesium Direct Bilirubin AST 158 H ALT 184 H Alkaline Phosphatase 170 H Total Creatine Kinase CK-MB (CK-2) CK-MB (CK-2) Rel Index Troponin T C-Reactive Protein Total Protein Albumin 2.8 L Triglycerides Ur Specific [place] Urine WBC (Auto) Miscellaneous Test 04/12/17 04/12/17 04/13/17 21:36 21:36 01:37 WBC RBC Hgb Hct MCV MCH Plt Count Lymph % (Auto) [place] % (Auto) Eos % (Auto) Baso % (Auto) Lymph # Baso # Seg Neutrophils % Lymphocytes % (Manual) Monocytes % (Manual) Nucleated RBC % Seg Neutrophils # Seg Neutrophils # Man Monocytes # (Manual) PT INR Activated Clotting Time POC ABG pH POC ABG pCO2 POC ABG pO2 Sodium Potassium Chloride Carbon Dioxide BUN Creatinine Glucose POC Glucose 126 H Calcium Magnesium Direct Bilirubin AST ALT Alkaline Phosphatase Total Creatine Kinase 1404 H CK-MB (CK-2) 8.0 H CK-MB (CK-2) Rel Index Troponin T 0.767 H* C-Reactive Protein Total Protein Albumin Triglycerides Ur Specific [place] Urine WBC (Auto) Miscellaneous Test 04/13/17 04/13/17 04/13/17 04:45 04:52 12:17 WBC RBC Hgb Hct MCV MCH Plt Count Lymph % (Auto) [place] % (Auto) Eos % (Auto) Baso % (Auto) Lymph # Baso # Seg Neutrophils % Lymphocytes % (Manual) Monocytes % (Manual) Nucleated RBC % Seg Neutrophils # Seg Neutrophils # Man Monocytes # (Manual) PT INR Activated Clotting Time POC ABG pH POC ABG pCO2 POC ABG pO2 Sodium 148 H Potassium Chloride 112.8 H Carbon Dioxide BUN 33 H Creatinine 0.4 L Glucose 121 H POC Glucose 126 H 149 H Calcium Magnesium Direct Bilirubin AST 160 H ALT 189 H Alkaline Phosphatase 166 H Total Creatine Kinase CK-MB (CK-2) CK-MB (CK-2) Rel Index Troponin T C-Reactive Protein Total Protein Albumin 2.6 L Triglycerides Ur Specific [place] Urine WBC (Auto) Miscellaneous Test 04/13/17 04/14/17 04/14/17 17:45 00:20 00:45 WBC RBC Hgb Hct MCV MCH Plt Count Lymph % (Auto) [place] % (Auto) Eos % (Auto) Baso % (Auto) Lymph # Baso # Seg Neutrophils % Lymphocytes % (Manual) Monocytes % (Manual) Nucleated RBC % Seg Neutrophils # Seg Neutrophils # Man Monocytes # (Manual) PT INR Activated Clotting Time POC ABG pH POC ABG pCO2 POC ABG pO2 Sodium Potassium Chloride Carbon Dioxide BUN Creatinine Glucose POC Glucose 130 H 144 H 144 H Calcium Magnesium Direct Bilirubin AST ALT Alkaline Phosphatase Total Creatine Kinase CK-MB (CK-2) CK-MB (CK-2) Rel Index Troponin T C-Reactive Protein Total Protein Albumin Triglycerides Ur Specific [place] Urine WBC (Auto) Miscellaneous Test 04/14/17 04/14/17 04/14/17 05:40 11:06 11:31 WBC RBC Hgb Hct MCV MCH Plt Count Lymph % (Auto) [place] % (Auto) Eos % (Auto) Baso % (Auto) Lymph # Baso # Seg Neutrophils % Lymphocytes % (Manual) Monocytes % (Manual) Nucleated RBC % Seg Neutrophils # Seg Neutrophils # Man Monocytes # (Manual) PT INR Activated Clotting Time POC ABG pH POC ABG pCO2 POC ABG pO2 Sodium Potassium Chloride Carbon Dioxide BUN Creatinine Glucose POC Glucose 139 H 123 H Calcium Magnesium Direct Bilirubin AST ALT Alkaline Phosphatase Total Creatine Kinase CK-MB (CK-2) CK-MB (CK-2) Rel Index Troponin T C-Reactive Protein Total Protein Albumin Triglycerides Ur Specific [place] 1.033 H Urine WBC (Auto) > 182.0 H Miscellaneous Test 04/14/17 04/14/17 04/15/17 18:00 23:52 05:15 WBC 12.5 H RBC 3.38 L Hgb 10.6 L Hct 32.7 L MCV 97 H MCH Plt Count 107 L Lymph % (Auto) 8.7 L [place] % (Auto) Eos % (Auto) Baso % (Auto) Lymph # 1.1 L Baso # Seg Neutrophils % 86.1 H Lymphocytes % (Manual) Monocytes % (Manual) Nucleated RBC % Seg Neutrophils # 10.7 H Seg Neutrophils # Man Monocytes # (Manual) PT INR Activated Clotting Time POC ABG pH POC ABG pCO2 POC ABG pO2 Sodium Potassium Chloride Carbon Dioxide BUN Creatinine Glucose POC Glucose 133 H 133 H Calcium Magnesium Direct Bilirubin AST ALT Alkaline Phosphatase Total Creatine Kinase CK-MB (CK-2) CK-MB (CK-2) Rel Index Troponin T C-Reactive Protein Total Protein Albumin Triglycerides Ur Specific [place] Urine WBC (Auto) Miscellaneous Test 04/15/17 04/15/17 04/15/17 05:15 05:25 11:50 WBC RBC Hgb Hct MCV MCH Plt Count Lymph % (Auto) [place] % (Auto) Eos % (Auto) Baso % (Auto) Lymph # Baso # Seg Neutrophils % Lymphocytes % (Manual) Monocytes % (Manual) Nucleated RBC % Seg Neutrophils # Seg Neutrophils # Man Monocytes # (Manual) PT INR Activated Clotting Time POC ABG pH POC ABG pCO2 POC ABG pO2 Sodium 149 H Potassium 3.5 L Chloride 114.1 H Carbon Dioxide 21 L BUN 29 H Creatinine 0.4 L Glucose 128 H POC Glucose 133 H 107 H Calcium 8.3 L Magnesium Direct Bilirubin 0.4 H AST 149 H ALT 182 H Alkaline Phosphatase 143 H Total Creatine Kinase CK-MB (CK-2) CK-MB (CK-2) Rel Index Troponin T C-Reactive Protein Total Protein Albumin 2.5 L Triglycerides Ur Specific [place] Urine WBC (Auto) Miscellaneous Test 04/15/17 04/16/17 04/16/17 16:55 00:02 03:17 WBC RBC 3.39 L Hgb 10.5 L Hct 32.4 L MCV 96 H MCH Plt Count 106 L Lymph % (Auto) 6.7 L [place] % (Auto) Eos % (Auto) Baso % (Auto) Lymph # 0.6 L Baso # Seg Neutrophils % 86.8 H Lymphocytes % (Manual) Monocytes % (Manual) Nucleated RBC % Seg Neutrophils # 8.2 H Seg Neutrophils # Man Monocytes # (Manual) PT INR Activated Clotting Time POC ABG pH POC ABG pCO2 POC ABG pO2 Sodium Potassium Chloride Carbon Dioxide BUN Creatinine Glucose POC Glucose 146 H 148 H Calcium Magnesium Direct Bilirubin AST ALT Alkaline Phosphatase Total Creatine Kinase CK-MB (CK-2) CK-MB (CK-2) Rel Index Troponin T C-Reactive Protein Total Protein Albumin Triglycerides Ur Specific [place] Urine WBC (Auto) Miscellaneous Test 04/16/17 04/16/17 04/16/17 03:17 05:19 11:13 WBC RBC Hgb Hct MCV MCH Plt Count Lymph % (Auto) [place] % (Auto) Eos % (Auto) Baso % (Auto) Lymph # Baso # Seg Neutrophils % Lymphocytes % (Manual) Monocytes % (Manual) Nucleated RBC % Seg Neutrophils # Seg Neutrophils # Man Monocytes # (Manual) PT INR Activated Clotting Time POC ABG pH POC ABG pCO2 POC ABG pO2 Sodium 149 H Potassium Chloride 111.1 H Carbon Dioxide 20 L BUN 27 H Creatinine 0.3 L Glucose 156 H POC Glucose 171 H 169 H Calcium 8.3 L Magnesium Direct Bilirubin AST ALT Alkaline Phosphatase Total Creatine Kinase CK-MB (CK-2) CK-MB (CK-2) Rel Index Troponin T C-Reactive Protein Total Protein Albumin Triglycerides Ur Specific [place] Urine WBC (Auto) Miscellaneous Test 04/16/17 04/17/17 04/17/17 17:03 00:00 05:09 WBC RBC Hgb Hct MCV MCH Plt Count Lymph % (Auto) [place] % (Auto) Eos % (Auto) Baso % (Auto) Lymph # Baso # Seg Neutrophils % Lymphocytes % (Manual) Monocytes % (Manual) Nucleated RBC % Seg Neutrophils # Seg Neutrophils # Man Monocytes # (Manual) PT INR Activated Clotting Time POC ABG pH POC ABG pCO2 POC ABG pO2 Sodium Potassium Chloride Carbon Dioxide BUN Creatinine Glucose POC Glucose 151 H 165 H 145 H Calcium Magnesium Direct Bilirubin AST ALT Alkaline Phosphatase Total Creatine Kinase CK-MB (CK-2) CK-MB (CK-2) Rel Index Troponin T C-Reactive Protein Total Protein Albumin Triglycerides Ur Specific [place] Urine WBC (Auto) Miscellaneous Test 04/17/17 04/17/17 04/18/17 11:38 17:47 00:01 WBC RBC Hgb Hct MCV MCH Plt Count Lymph % (Auto) [place] % (Auto) Eos % (Auto) Baso % (Auto) Lymph # Baso # Seg Neutrophils % Lymphocytes % (Manual) Monocytes % (Manual) Nucleated RBC % Seg Neutrophils # Seg Neutrophils # Man Monocytes # (Manual) PT INR Activated Clotting Time POC ABG pH POC ABG pCO2 POC ABG pO2 Sodium Potassium Chloride Carbon Dioxide BUN Creatinine Glucose POC Glucose 170 H 161 H 131 H Calcium Magnesium Direct Bilirubin AST ALT Alkaline Phosphatase Total Creatine Kinase CK-MB (CK-2) CK-MB (CK-2) Rel Index Troponin T C-Reactive Protein Total Protein Albumin Triglycerides Ur Specific [place] Urine WBC (Auto) Miscellaneous Test 04/18/17 04/18/17 04/18/17 03:55 03:55 05:30 WBC RBC 3.05 L Hgb 9.8 L Hct 29.0 L MCV 95 H MCH Plt Count 113 L Lymph % (Auto) [place] % (Auto) Eos % (Auto) 5.3 H Baso % (Auto) Lymph # Baso # Seg Neutrophils % 71.5 H Lymphocytes % (Manual) Monocytes % (Manual) Nucleated RBC % Seg Neutrophils # Seg Neutrophils # Man Monocytes # (Manual) PT INR Activated Clotting Time POC ABG pH 7.460 H POC ABG pCO2 30.8 L POC ABG pO2 129 H Sodium Potassium Chloride Carbon Dioxide 21 L BUN 25 H Creatinine 0.4 L Glucose 123 H POC Glucose Calcium 8.3 L Magnesium Direct Bilirubin AST ALT Alkaline Phosphatase Total Creatine Kinase CK-MB (CK-2) CK-MB (CK-2) Rel Index Troponin T C-Reactive Protein Total Protein Albumin Triglycerides Ur Specific [place] Urine WBC (Auto) Miscellaneous Test 04/18/17 04/18/17 04/19/17 17:10 23:40 04:36 WBC RBC 3.21 L Hgb 10.2 L Hct 30.4 L MCV 95 H MCH Plt Count 131 L Lymph % (Auto) 12.1 L [place] % (Auto) Eos % (Auto) 4.7 H Baso % (Auto) 2.4 H Lymph # 0.9 L Baso # 0.2 H Seg Neutrophils % 75.0 H Lymphocytes % (Manual) Monocytes % (Manual) Nucleated RBC % Seg Neutrophils # Seg Neutrophils # Man Monocytes # (Manual) PT INR Activated Clotting Time POC ABG pH POC ABG pCO2 POC ABG pO2 Sodium Potassium Chloride Carbon Dioxide BUN Creatinine Glucose POC Glucose 135 H 157 H Calcium Magnesium Direct Bilirubin AST ALT Alkaline Phosphatase Total Creatine Kinase CK-MB (CK-2) CK-MB (CK-2) Rel Index Troponin T C-Reactive Protein Total Protein Albumin Triglycerides Ur Specific [place] Urine WBC (Auto) Miscellaneous Test 04/19/17 04/19/17 04/19/17 04:36 05:12 06:50 WBC RBC Hgb Hct MCV MCH Plt Count Lymph % (Auto) [place] % (Auto) Eos % (Auto) Baso % (Auto) Lymph # Baso # Seg Neutrophils % Lymphocytes % (Manual) Monocytes % (Manual) Nucleated RBC % Seg Neutrophils # Seg Neutrophils # Man Monocytes # (Manual) PT INR Activated Clotting Time POC ABG pH 7.516 H POC ABG pCO2 28.0 L POC ABG pO2 Sodium Potassium Chloride Carbon Dioxide 21 L BUN 23 H Creatinine 0.2 L Glucose 137 H POC Glucose 131 H Calcium 7.9 L Magnesium Direct Bilirubin AST ALT Alkaline Phosphatase Total Creatine Kinase CK-MB (CK-2) CK-MB (CK-2) Rel Index Troponin T C-Reactive Protein Total Protein Albumin Triglycerides Ur Specific [place] Urine WBC (Auto) Miscellaneous Test 04/19/17 04/19/17 04/20/17 12:36 17:42 00:12 WBC RBC Hgb Hct MCV MCH Plt Count Lymph % (Auto) [place] % (Auto) Eos % (Auto) Baso % (Auto) Lymph # Baso # Seg Neutrophils % Lymphocytes % (Manual) Monocytes % (Manual) Nucleated RBC % Seg Neutrophils # Seg Neutrophils # Man Monocytes # (Manual) PT INR Activated Clotting Time POC ABG pH POC ABG pCO2 POC ABG pO2 Sodium Potassium Chloride Carbon Dioxide BUN Creatinine Glucose POC Glucose 128 H 140 H 132 H Calcium Magnesium Direct Bilirubin AST ALT Alkaline Phosphatase Total Creatine Kinase CK-MB (CK-2) CK-MB (CK-2) Rel Index Troponin T C-Reactive Protein Total Protein Albumin Triglycerides Ur Specific [place] Urine WBC (Auto) Miscellaneous Test 04/20/17 04/20/17 04/20/17 03:35 03:35 05:10 WBC RBC 3.34 L Hgb 10.4 L Hct 31.6 L MCV 95 H MCH Plt Count Lymph % (Auto) 12.9 L [place] % (Auto) Eos % (Auto) Baso % (Auto) Lymph # Baso # Seg Neutrophils % 77.3 H Lymphocytes % (Manual) Monocytes % (Manual) Nucleated RBC % Seg Neutrophils # Seg Neutrophils # Man Monocytes # (Manual) PT INR Activated Clotting Time POC ABG pH POC ABG pCO2 POC ABG pO2 Sodium Potassium Chloride Carbon Dioxide BUN Creatinine 0.3 L Glucose 155 H POC Glucose 135 H Calcium 7.8 L Magnesium Direct Bilirubin AST ALT Alkaline Phosphatase Total Creatine Kinase CK-MB (CK-2) CK-MB (CK-2) Rel Index Troponin T C-Reactive Protein Total Protein Albumin Triglycerides Ur Specific [place] Urine WBC (Auto) Miscellaneous Test 04/20/17 04/20/17 04/21/17 12:49 18:21 00:05 WBC RBC Hgb Hct MCV MCH Plt Count Lymph % (Auto) [place] % (Auto) Eos % (Auto) Baso % (Auto) Lymph # Baso # Seg Neutrophils % Lymphocytes % (Manual) Monocytes % (Manual) Nucleated RBC % Seg Neutrophils # Seg Neutrophils # Man Monocytes # (Manual) PT INR Activated Clotting Time POC ABG pH POC ABG pCO2 POC ABG pO2 Sodium Potassium Chloride Carbon Dioxide BUN Creatinine Glucose POC Glucose 155 H 165 H 141 H Calcium Magnesium Direct Bilirubin AST ALT Alkaline Phosphatase Total Creatine Kinase CK-MB (CK-2) CK-MB (CK-2) Rel Index Troponin T C-Reactive Protein Total Protein Albumin Triglycerides Ur Specific [place] Urine WBC (Auto) Miscellaneous Test 04/21/17 04/21/17 04/21/17 06:00 12:11 17:04 WBC RBC Hgb Hct MCV MCH Plt Count Lymph % (Auto) [place] % (Auto) Eos % (Auto) Baso % (Auto) Lymph # Baso # Seg Neutrophils % Lymphocytes % (Manual) Monocytes % (Manual) Nucleated RBC % Seg Neutrophils # Seg Neutrophils # Man Monocytes # (Manual) PT INR Activated Clotting Time POC ABG pH POC ABG pCO2 POC ABG pO2 Sodium Potassium Chloride Carbon Dioxide BUN Creatinine Glucose POC Glucose 152 H 165 H 156 H Calcium Magnesium Direct Bilirubin AST ALT Alkaline Phosphatase Total Creatine Kinase CK-MB (CK-2) CK-MB (CK-2) Rel Index Troponin T C-Reactive Protein Total Protein Albumin Triglycerides Ur Specific [place] Urine WBC (Auto) Miscellaneous Test 04/21/17 04/21/17 04/22/17 22:00 23:59 05:49 WBC RBC Hgb Hct MCV MCH Plt Count Lymph % (Auto) [place] % (Auto) Eos % (Auto) Baso % (Auto) Lymph # Baso # Seg Neutrophils % Lymphocytes % (Manual) Monocytes % (Manual) Nucleated RBC % Seg Neutrophils # Seg Neutrophils # Man Monocytes # (Manual) PT INR Activated Clotting Time POC ABG pH POC ABG pCO2 POC ABG pO2 Sodium Potassium Chloride Carbon Dioxide BUN Creatinine Glucose POC Glucose 166 H 173 H Calcium Magnesium Direct Bilirubin AST ALT Alkaline Phosphatase Total Creatine Kinase CK-MB (CK-2) CK-MB (CK-2) Rel Index Troponin T C-Reactive Protein Total Protein Albumin Triglycerides Ur Specific [place] Urine WBC (Auto) 10.0 H Miscellaneous Test 04/22/17 04/22/17 04/23/17 11:11 18:04 00:37 WBC RBC Hgb Hct MCV MCH Plt Count Lymph % (Auto) [place] % (Auto) Eos % (Auto) Baso % (Auto) Lymph # Baso # Seg Neutrophils % Lymphocytes % (Manual) Monocytes % (Manual) Nucleated RBC % Seg Neutrophils # Seg Neutrophils # Man Monocytes # (Manual) PT INR Activated Clotting Time POC ABG pH POC ABG pCO2 POC ABG pO2 Sodium Potassium Chloride Carbon Dioxide BUN Creatinine Glucose POC Glucose 172 H 140 H 135 H Calcium Magnesium Direct Bilirubin AST ALT Alkaline Phosphatase Total Creatine Kinase CK-MB (CK-2) CK-MB (CK-2) Rel Index Troponin T C-Reactive Protein Total Protein Albumin Triglycerides Ur Specific [place] Urine WBC (Auto) Miscellaneous Test 04/23/17 04/23/17 04/23/17 05:33 06:20 11:10 WBC RBC 3.19 L Hgb 9.9 L Hct 30.0 L MCV MCH Plt Count Lymph % (Auto) 8.0 L [place] % (Auto) Eos % (Auto) Baso % (Auto) Lymph # 0.8 L Baso # Seg Neutrophils % 84.5 H Lymphocytes % (Manual) Monocytes % (Manual) Nucleated RBC % Seg Neutrophils # 8.2 H Seg Neutrophils # Man Monocytes # (Manual) PT INR Activated Clotting Time POC ABG pH POC ABG pCO2 POC ABG pO2 Sodium Potassium Chloride Carbon Dioxide BUN Creatinine Glucose POC Glucose 134 H 134 H Calcium Magnesium Direct Bilirubin AST ALT Alkaline Phosphatase Total Creatine Kinase CK-MB (CK-2) CK-MB (CK-2) Rel Index Troponin T C-Reactive Protein Total Protein Albumin Triglycerides Ur Specific [place] Urine WBC (Auto) Miscellaneous Test 04/23/17 04/24/17 04/24/17 17:26 00:53 06:46 WBC RBC Hgb Hct MCV MCH Plt Count Lymph % (Auto) [place] % (Auto) Eos % (Auto) Baso % (Auto) Lymph # Baso # Seg Neutrophils % Lymphocytes % (Manual) Monocytes % (Manual) Nucleated RBC % Seg Neutrophils # Seg Neutrophils # Man Monocytes # (Manual) PT INR Activated Clotting Time POC ABG pH POC ABG pCO2 POC ABG pO2 Sodium Potassium Chloride Carbon Dioxide BUN Creatinine Glucose POC Glucose 164 H 146 H 125 H Calcium Magnesium Direct Bilirubin AST ALT Alkaline Phosphatase Total Creatine Kinase CK-MB (CK-2) CK-MB (CK-2) Rel Index Troponin T C-Reactive Protein Total Protein Albumin Triglycerides Ur Specific [place] Urine WBC (Auto) Miscellaneous Test 04/24/17 04/24/17 04/24/17 11:55 17:50 23:36 WBC RBC Hgb Hct MCV MCH Plt Count Lymph % (Auto) [place] % (Auto) Eos % (Auto) Baso % (Auto) Lymph # Baso # Seg Neutrophils % Lymphocytes % (Manual) Monocytes % (Manual) Nucleated RBC % Seg Neutrophils # Seg Neutrophils # Man Monocytes # (Manual) PT INR Activated Clotting Time POC ABG pH POC ABG pCO2 POC ABG pO2 Sodium Potassium Chloride Carbon Dioxide BUN Creatinine Glucose POC Glucose 156 H 146 H 131 H Calcium Magnesium Direct Bilirubin AST ALT Alkaline Phosphatase Total Creatine Kinase CK-MB (CK-2) CK-MB (CK-2) Rel Index Troponin T C-Reactive Protein Total Protein Albumin Triglycerides Ur Specific [place] Urine WBC (Auto) Miscellaneous Test 04/25/17 04/25/17 04/25/17 04:51 05:16 07:07 WBC RBC Hgb Hct MCV MCH Plt Count Lymph % (Auto) [place] % (Auto) Eos % (Auto) Baso % (Auto) Lymph # Baso # Seg Neutrophils % Lymphocytes % (Manual) Monocytes % (Manual) Nucleated RBC % Seg Neutrophils # Seg Neutrophils # Man Monocytes # (Manual) PT INR Activated Clotting Time POC ABG pH POC ABG pCO2 POC ABG pO2 Sodium Potassium Chloride Carbon Dioxide BUN Creatinine Glucose POC Glucose 139 H Calcium Magnesium Direct Bilirubin AST 105 H ALT 204 H Alkaline Phosphatase 189 H Total Creatine Kinase CK-MB (CK-2) CK-MB (CK-2) Rel Index Troponin T C-Reactive Protein Total Protein Albumin 2.4 L Triglycerides Ur Specific [place] Urine WBC (Auto) Miscellaneous Test Flexitest 1 H 04/25/17 04/25/17 04/25/17 12:29 17:23 23:32 WBC RBC Hgb Hct MCV MCH Plt Count Lymph % (Auto) [place] % (Auto) Eos % (Auto) Baso % (Auto) Lymph # Baso # Seg Neutrophils % Lymphocytes % (Manual) Monocytes % (Manual) Nucleated RBC % Seg Neutrophils # Seg Neutrophils # Man Monocytes # (Manual) PT INR Activated Clotting Time POC ABG pH POC ABG pCO2 POC ABG pO2 Sodium Potassium Chloride Carbon Dioxide BUN Creatinine Glucose POC Glucose 132 H 133 H 128 H Calcium Magnesium Direct Bilirubin AST ALT Alkaline Phosphatase Total Creatine Kinase CK-MB (CK-2) CK-MB (CK-2) Rel Index Troponin T C-Reactive Protein Total Protein Albumin Triglycerides Ur Specific [place] Urine WBC (Auto) Miscellaneous Test 04/26/17 04/26/17 04/26/17 05:24 11:28 17:09 WBC RBC Hgb Hct MCV MCH Plt Count Lymph % (Auto) [place] % (Auto) Eos % (Auto) Baso % (Auto) Lymph # Baso # Seg Neutrophils % Lymphocytes % (Manual) Monocytes % (Manual) Nucleated RBC % Seg Neutrophils # Seg Neutrophils # Man Monocytes # (Manual) PT INR Activated Clotting Time POC ABG pH POC ABG pCO2 POC ABG pO2 Sodium Potassium Chloride Carbon Dioxide BUN Creatinine Glucose POC Glucose 132 H 146 H 141 H Calcium Magnesium Direct Bilirubin AST ALT Alkaline Phosphatase Total Creatine Kinase CK-MB (CK-2) CK-MB (CK-2) Rel Index Troponin T C-Reactive Protein Total Protein Albumin Triglycerides Ur Specific [place] Urine WBC (Auto) Miscellaneous Test 04/26/17 04/27/17 04/27/17 23:52 05:40 05:40 WBC RBC 3.22 L Hgb 10.0 L Hct 29.9 L MCV MCH Plt Count Lymph % (Auto) [place] % (Auto) Eos % (Auto) Baso % (Auto) Lymph # Baso # Seg Neutrophils % 76.6 H Lymphocytes % (Manual) Monocytes % (Manual) Nucleated RBC % Seg Neutrophils # Seg Neutrophils # Man Monocytes # (Manual) PT INR Activated Clotting Time POC ABG pH POC ABG pCO2 POC ABG pO2 Sodium Potassium Chloride Carbon Dioxide BUN Creatinine Glucose POC Glucose 140 H Calcium Magnesium Direct Bilirubin AST 66 H ALT 137 H Alkaline Phosphatase 169 H Total Creatine Kinase CK-MB (CK-2) CK-MB (CK-2) Rel Index Troponin T C-Reactive Protein Total Protein 6.2 L Albumin 2.6 L Triglycerides Ur Specific [place] Urine WBC (Auto) Miscellaneous Test 04/27/17 04/27/17 04/27/17 05:40 06:10 11:13 WBC RBC Hgb Hct MCV MCH Plt Count Lymph % (Auto) [place] % (Auto) Eos % (Auto) Baso % (Auto) Lymph # Baso # Seg Neutrophils % Lymphocytes % (Manual) Monocytes % (Manual) Nucleated RBC % Seg Neutrophils # Seg Neutrophils # Man Monocytes # (Manual) PT INR Activated Clotting Time POC ABG pH POC ABG pCO2 POC ABG pO2 Sodium Potassium Chloride Carbon Dioxide BUN Creatinine 0.2 L Glucose 139 H POC Glucose 130 H 151 H Calcium Magnesium Direct Bilirubin AST ALT Alkaline Phosphatase Total Creatine Kinase CK-MB (CK-2) CK-MB (CK-2) Rel Index Troponin T C-Reactive Protein Total Protein Albumin Triglycerides Ur Specific [place] Urine WBC (Auto) Miscellaneous Test 04/27/17 04/27/17 04/28/17 17:37 23:19 05:24 WBC RBC Hgb Hct MCV MCH Plt Count Lymph % (Auto) [place] % (Auto) Eos % (Auto) Baso % (Auto) Lymph # Baso # Seg Neutrophils % Lymphocytes % (Manual) Monocytes % (Manual) Nucleated RBC % Seg Neutrophils # Seg Neutrophils # Man Monocytes # (Manual) PT INR Activated Clotting Time POC ABG pH POC ABG pCO2 POC ABG pO2 Sodium Potassium Chloride Carbon Dioxide BUN Creatinine Glucose POC Glucose 159 H 130 H 132 H Calcium Magnesium Direct Bilirubin AST ALT Alkaline Phosphatase Total Creatine Kinase CK-MB (CK-2) CK-MB (CK-2) Rel Index Troponin T C-Reactive Protein Total Protein Albumin Triglycerides Ur Specific [place] Urine WBC (Auto) Miscellaneous Test 04/28/17 04/28/17 04/28/17 11:15 17:38 23:23 WBC RBC Hgb Hct MCV MCH Plt Count Lymph % (Auto) [place] % (Auto) Eos % (Auto) Baso % (Auto) Lymph # Baso # Seg Neutrophils % Lymphocytes % (Manual) Monocytes % (Manual) Nucleated RBC % Seg Neutrophils # Seg Neutrophils # Man Monocytes # (Manual) PT INR Activated Clotting Time POC ABG pH POC ABG pCO2 POC ABG pO2 Sodium Potassium Chloride Carbon Dioxide BUN Creatinine Glucose POC Glucose 162 H 133 H 138 H Calcium Magnesium Direct Bilirubin AST ALT Alkaline Phosphatase Total Creatine Kinase CK-MB (CK-2) CK-MB (CK-2) Rel Index Troponin T C-Reactive Protein Total Protein Albumin Triglycerides Ur Specific [place] Urine WBC (Auto) Miscellaneous Test 04/29/17 04/29/17 04/29/17 05:15 12:55 17:21 WBC RBC Hgb Hct MCV MCH Plt Count Lymph % (Auto) [place] % (Auto) Eos % (Auto) Baso % (Auto) Lymph # Baso # Seg Neutrophils % Lymphocytes % (Manual) Monocytes % (Manual) Nucleated RBC % Seg Neutrophils # Seg Neutrophils # Man Monocytes # (Manual) PT INR Activated Clotting Time POC ABG pH POC ABG pCO2 POC ABG pO2 Sodium Potassium Chloride Carbon Dioxide BUN Creatinine Glucose POC Glucose 135 H 127 H 138 H Calcium Magnesium Direct Bilirubin AST ALT Alkaline Phosphatase Total Creatine Kinase CK-MB (CK-2) CK-MB (CK-2) Rel Index Troponin T C-Reactive Protein Total Protein Albumin Triglycerides Ur Specific [place] Urine WBC (Auto) Miscellaneous Test 04/29/17 04/30/17 04/30/17 23:52 04:55 12:22 WBC RBC Hgb Hct MCV MCH Plt Count Lymph % (Auto) [place] % (Auto) Eos % (Auto) Baso % (Auto) Lymph # Baso # Seg Neutrophils % Lymphocytes % (Manual) Monocytes % (Manual) Nucleated RBC % Seg Neutrophils # Seg Neutrophils # Man Monocytes # (Manual) PT INR Activated Clotting Time POC ABG pH POC ABG pCO2 POC ABG pO2 Sodium Potassium Chloride Carbon Dioxide BUN Creatinine Glucose POC Glucose 142 H 146 H 132 H Calcium Magnesium Direct Bilirubin AST ALT Alkaline Phosphatase Total Creatine Kinase CK-MB (CK-2) CK-MB (CK-2) Rel Index Troponin T C-Reactive Protein Total Protein Albumin Triglycerides Ur Specific [place] Urine WBC (Auto) Miscellaneous Test 04/30/17 04/30/17 04/30/17 14:25 17:47 18:20 WBC RBC Hgb Hct MCV MCH Plt Count Lymph % (Auto) [place] % (Auto) Eos % (Auto) Baso % (Auto) Lymph # Baso # Seg Neutrophils % Lymphocytes % (Manual) Monocytes % (Manual) Nucleated RBC % Seg Neutrophils # Seg Neutrophils # Man Monocytes # (Manual) PT INR Activated Clotting Time POC ABG pH 7.551 H POC ABG pCO2 32.7 L POC ABG pO2 Sodium Potassium Chloride Carbon Dioxide BUN 21 H Creatinine 0.2 L Glucose 141 H POC Glucose 139 H Calcium Magnesium Direct Bilirubin AST ALT Alkaline Phosphatase Total Creatine Kinase CK-MB (CK-2) CK-MB (CK-2) Rel Index Troponin T C-Reactive Protein Total Protein Albumin Triglycerides Ur Specific [place] Urine WBC (Auto) Miscellaneous Test 05/01/17 05/01/17 05/01/17 01:26 05:30 05:30 WBC RBC 3.49 L Hgb 10.3 L Hct 31.9 L MCV MCH Plt Count Lymph % (Auto) [place] % (Auto) 8.1 H Eos % (Auto) Baso % (Auto) Lymph # Baso # Seg Neutrophils % 71.3 H Lymphocytes % (Manual) Monocytes % (Manual) Nucleated RBC % Seg Neutrophils # Seg Neutrophils # Man Monocytes # (Manual) PT INR Activated Clotting Time POC ABG pH POC ABG pCO2 POC ABG pO2 Sodium 136 L Potassium Chloride 97.6 L Carbon Dioxide BUN Creatinine 0.2 L Glucose 123 H POC Glucose 116 H Calcium Magnesium Direct Bilirubin AST 71 H ALT 125 H Alkaline Phosphatase 158 H Total Creatine Kinase CK-MB (CK-2) CK-MB (CK-2) Rel Index Troponin T C-Reactive Protein Total Protein Albumin 2.6 L Triglycerides Ur Specific [place] Urine WBC (Auto) Miscellaneous Test 05/01/17 05/01/17 05/02/17 11:59 17:23 00:08 WBC RBC Hgb Hct MCV MCH Plt Count Lymph % (Auto) [place] % (Auto) Eos % (Auto) Baso % (Auto) Lymph # Baso # Seg Neutrophils % Lymphocytes % (Manual) Monocytes % (Manual) Nucleated RBC % Seg Neutrophils # Seg Neutrophils # Man Monocytes # (Manual) PT INR Activated Clotting Time POC ABG pH POC ABG pCO2 POC ABG pO2 Sodium Potassium Chloride Carbon Dioxide BUN Creatinine Glucose POC Glucose 118 H 144 H 122 H Calcium Magnesium Direct Bilirubin AST ALT Alkaline Phosphatase Total Creatine Kinase CK-MB (CK-2) CK-MB (CK-2) Rel Index Troponin T C-Reactive Protein Total Protein Albumin Triglycerides Ur Specific [place] Urine WBC (Auto) Miscellaneous Test 05/02/17 05/02/17 05/02/17 05:50 11:21 17:48 WBC RBC Hgb Hct MCV MCH Plt Count Lymph % (Auto) [place] % (Auto) Eos % (Auto) Baso % (Auto) Lymph # Baso # Seg Neutrophils % Lymphocytes % (Manual) Monocytes % (Manual) Nucleated RBC % Seg Neutrophils # Seg Neutrophils # Man Monocytes # (Manual) PT INR Activated Clotting Time POC ABG pH POC ABG pCO2 POC ABG pO2 Sodium Potassium Chloride Carbon Dioxide BUN Creatinine Glucose POC Glucose 120 H 121 H 140 H Calcium Magnesium Direct Bilirubin AST ALT Alkaline Phosphatase Total Creatine Kinase CK-MB (CK-2) CK-MB (CK-2) Rel Index Troponin T C-Reactive Protein Total Protein Albumin Triglycerides Ur Specific [place] Urine WBC (Auto) Miscellaneous Test 05/02/17 05/03/17 05/03/17 23:12 05:35 11:52 WBC RBC Hgb Hct MCV MCH Plt Count Lymph % (Auto) [place] % (Auto) Eos % (Auto) Baso % (Auto) Lymph # Baso # Seg Neutrophils % Lymphocytes % (Manual) Monocytes % (Manual) Nucleated RBC % Seg Neutrophils # Seg Neutrophils # Man Monocytes # (Manual) PT INR Activated Clotting Time POC ABG pH POC ABG pCO2 POC ABG pO2 Sodium Potassium Chloride Carbon Dioxide BUN Creatinine Glucose POC Glucose 128 H 113 H 126 H Calcium Magnesium Direct Bilirubin AST ALT Alkaline Phosphatase Total Creatine Kinase CK-MB (CK-2) CK-MB (CK-2) Rel Index Troponin T C-Reactive Protein Total Protein Albumin Triglycerides Ur Specific [place] Urine WBC (Auto) Miscellaneous Test 05/03/17 05/03/17 05/04/17 17:29 23:26 04:55 WBC RBC Hgb Hct MCV MCH Plt Count Lymph % (Auto) [place] % (Auto) Eos % (Auto) Baso % (Auto) Lymph # Baso # Seg Neutrophils % Lymphocytes % (Manual) Monocytes % (Manual) Nucleated RBC % Seg Neutrophils # Seg Neutrophils # Man Monocytes # (Manual) PT INR Activated Clotting Time POC ABG pH POC ABG pCO2 POC ABG pO2 Sodium Potassium Chloride Carbon Dioxide BUN Creatinine Glucose POC Glucose 141 H 129 H 126 H Calcium Magnesium Direct Bilirubin AST ALT Alkaline Phosphatase Total Creatine Kinase CK-MB (CK-2) CK-MB (CK-2) Rel Index Troponin T C-Reactive Protein Total Protein Albumin Triglycerides Ur Specific [place] Urine WBC (Auto) Miscellaneous Test 05/04/17 05/04/17 05/05/17 12:09 17:46 00:06 WBC RBC Hgb Hct MCV MCH Plt Count Lymph % (Auto) [place] % (Auto) Eos % (Auto) Baso % (Auto) Lymph # Baso # Seg Neutrophils % Lymphocytes % (Manual) Monocytes % (Manual) Nucleated RBC % Seg Neutrophils # Seg Neutrophils # Man Monocytes # (Manual) PT INR Activated Clotting Time POC ABG pH POC ABG pCO2 POC ABG pO2 Sodium Potassium Chloride Carbon Dioxide BUN Creatinine Glucose POC Glucose 125 H 125 H 110 H Calcium Magnesium Direct Bilirubin AST ALT Alkaline Phosphatase Total Creatine Kinase CK-MB (CK-2) CK-MB (CK-2) Rel Index Troponin T C-Reactive Protein Total Protein Albumin Triglycerides Ur Specific [place] Urine WBC (Auto) Miscellaneous Test 05/05/17 05/05/17 05:48 11:41 WBC RBC Hgb Hct MCV MCH Plt Count Lymph % (Auto) [place] % (Auto) Eos % (Auto) Baso % (Auto) Lymph # Baso # Seg Neutrophils % Lymphocytes % (Manual) Monocytes % (Manual) Nucleated RBC % Seg Neutrophils # Seg Neutrophils # Man Monocytes # (Manual) PT INR Activated Clotting Time POC ABG pH POC ABG pCO2 POC ABG pO2 Sodium Potassium Chloride Carbon Dioxide BUN Creatinine Glucose POC Glucose 124 H 122 H Calcium Magnesium Direct Bilirubin AST ALT Alkaline Phosphatase Total Creatine Kinase CK-MB (CK-2) CK-MB (CK-2) Rel Index Troponin T C-Reactive Protein Total Protein Albumin Triglycerides Ur Specific [place] Urine WBC (Auto) Miscellaneous Test
--- NOTE | 2017-05-05 21:37 | Progress Note ---
Assessment and Plan Assessment and plan: 46 YO Male with No PMH presents to ED for evaluation. Pt is unresponsive and unable to provide history. Pt history taken from ED staff and EMS. Pt was at work today and suddenly passed out around 1050 hrs-which was witnessed by patients coworkers. EMS notified, and upon arrival the patient was found to have V Fib. Pt treated IAW ACLS protocol. The patient was given 3 defibrillations, 2 rounds of epinephrine, Narcan, and a half amp of sodium bicarbonate. Pt found to be in respiratory distress and was intubated and placed on vent support. Cardiology team notified, and patient was taken urgently to lab asst, and admitted to ICU. anoxic brain injury/anoxic encephalopathy/Persistent Vegetative State sp trache and PEG -awaiting insurance/medicare disability application for LTACH or SNF placement Acute Respiratory failure requiring MV >96 hours sp trache, vent dependent Anterior STEMI sp cardiac arrest with V fib Emergency cath protocol called upon arrival, we found 100% occlusion of the LAD in its prox-mid segment. Successful primari PCI-angioplasty and 3.0-3.5mm BM stents deployed. LAD flow restored-excellent result. continue medical management Aspiration PNA due to MRSA/Gram positive Sepsis completed course of abx cardiogenic Shock -now resolved Sepsis/Right lower lobe aspiration pneumonia, most likely due to gram-positive bacteria completed course of abx Hypokalemia repleted, Now resolved Hypernatremia/dehydration/free water deficit resolved with Free water replacement --Severe Protein calorie malnutrition: Peg feeds and nutrition suppliments Had family meeting on 05/05: family wants to continue full code and aggressive rx while they await neuro fup Disposition; possible transfer to LTAC/SNF Very difficult to place, secondary to no payor source The high probability of a clinically significant, sudden or life threatening deterioration of the [Pulmonary, cardiac, renal] system(s) required my full and direct attention, intervention and personal management. The aggregate critical care time was [65] minutes. This time is in addition to time spent performing reported procedures but includes the following: [x] Data Review and interpretation [x] Patient assessment and monitoring of vital signs [x] Documentation [x] Medication orders and management History Interval history: Patient is nonresponsive, lacks most reflexes, had fever, no vomiting, no agitation Hospitalist Physical - Physical exam Narrative exam: General.: Comatose breathes over the vent HEENT: Moist mucous membranes, no LAD, Neck: supple Cardiac: S1-S2 heard Lungs: clear to auscultation bilaterally Abdomen: soft , nontender, nondistended, bowel sounds positive Extremities: no edema clubbing or cyanosis Skin: no rash or lesions Neurologic: Patient is in deep coma, lacks most reflexes, at this time, only has gag reflexs, corneal reflex is absent and decerebrate posturing, pupils are fixed and non reactive, lacks all other reflexes, opens eyes spontaneously - Constitutional Vitals: Temp Pulse Resp BP Pulse Ox 98.9 F 83 17 96/59 100 05/05/17 20:00 05/05/17 19:14 05/05/17 18:00 05/05/17 19:14 05/05/17 19:14 General appearance: Present: no acute distress, other (critically ill on vent) Results - Labs CBC & Chem 7: 05/01/17 05:30 05/01/17 05:30 Labs: Laboratory Last Values WBC 7.8 K/mm3 (4.5-11.0) 05/01/17 05:30 RBC 3.49 M/mm3 (3.65-5.03) L 05/01/17 05:30 Hgb 10.3 gm/dl (11.8-15.2) L 05/01/17 05:30 Hct 31.9 % (35.5-45.6) L 05/01/17 05:30 MCV 92 fl (84-94) 05/01/17 05:30 MCH 30 pg (28-32) 05/01/17 05:30 MCHC 32 % (32-34) 05/01/17 05:30 RDW 15.1 % (13.2-15.2) 05/01/17 05:30 Plt Count 280 K/mm3 (140-440) 05/01/17 05:30 Lymph % (Auto) 17.7 % (13.4-35.0) 05/01/17 05:30 [place] % (Auto) 8.1 % (0.0-7.3) H 05/01/17 05:30 Eos % (Auto) 2.5 % (0.0-4.3) 05/01/17 05:30 Baso % (Auto) 0.4 % (0.0-1.8) 05/01/17 05:30 Lymph # 1.4 K/mm3 (1.2-5.4) 05/01/17 05:30 [place] # 0.6 K/mm3 (0.0-0.8) 05/01/17 05:30 Eos # 0.2 K/mm3 (0.0-0.4) 05/01/17 05:30 Baso # 0.0 K/mm3 (0.0-0.1) 05/01/17 05:30 Add Manual Diff Complete 03/30/17 03:50 Total Counted 100 03/30/17 03:50 Seg Neutrophils % 71.3 % (40.0-70.0) H 05/01/17 05:30 Seg Neuts % (Manual) 65.0 % (40.0-70.0) 03/30/17 03:50 Band Neutrophils % 17.0 % 03/30/17 03:50 Lymphocytes % (Manual) 7.0 % (13.4-35.0) L 03/30/17 03:50 Reactive Lymphs % (Man) 0 % 03/30/17 03:50 Monocytes % (Manual) 7.0 % (0.0-7.3) 03/30/17 03:50 Eosinophils % (Manual) 0 % (0.0-4.3) 03/30/17 03:50 Basophils % (Manual) 0 % (0.0-1.8) 03/30/17 03:50 Metamyelocytes % 4.0 % 03/30/17 03:50 Myelocytes % 0 % 03/30/17 03:50 Promyelocytes % 0 % 03/30/17 03:50 Blast Cells % 0 % 03/30/17 03:50 Nucleated RBC % Not Reportable 03/30/17 03:50 Seg Neutrophils # 5.6 K/mm3 (1.8-7.7) 05/01/17 05:30 Seg Neutrophils # Man 12.7 K/mm3 (1.8-7.7) H 03/30/17 03:50 Band Neutrophils # 3.3 K/mm3 03/30/17 03:50 Lymphocytes # (Manual) 1.4 K/mm3 (1.2-5.4) 03/30/17 03:50 Abs React Lymphs (Man) 0.0 K/mm3 03/30/17 03:50 Monocytes # (Manual) 1.4 K/mm3 (0.0-0.8) H 03/30/17 03:50 Eosinophils # (Manual) 0.0 K/mm3 (0.0-0.4) 03/30/17 03:50 Basophils # (Manual) 0.0 K/mm3 (0.0-0.1) 03/30/17 03:50 Metamyelocytes # 0.8 K/mm3 03/30/17 03:50 Myelocytes # 0.0 K/mm3 03/30/17 03:50 Promyelocytes # 0.0 K/mm3 03/30/17 03:50 Blast Cells # 0.0 K/mm3 03/30/17 03:50 WBC Morphology Not Reportable 03/30/17 03:50 Hypersegmented Neuts Not Reportable 03/30/17 03:50 Hyposegmented Neuts Not Reportable 03/30/17 03:50 Hypogranular Neuts Not Reportable 03/30/17 03:50 Smudge Cells Not Reportable 03/30/17 03:50 Toxic Granulation Not Reportable 03/30/17 03:50 Toxic Vacuolation Not Reportable 03/30/17 03:50 Dohle Bodies Not Reportable 03/30/17 03:50 Pelger-Huet Anomaly Not Reportable 03/30/17 03:50 Sherry Rods Not Reportable 03/30/17 03:50 Platelet Estimate Appears normal 03/30/17 03:50 Clumped Platelets Not Reportable 03/30/17 03:50 Plt Clumps, EDTA Not Reportable 03/30/17 03:50 Large Platelets Not Reportable 03/30/17 03:50 Giant Platelets Not Reportable 03/30/17 03:50 Platelet Satelliting Not Reportable 03/30/17 03:50 Plt Morphology Comment Not Reportable 03/30/17 03:50 RBC Morphology Not Reportable 03/30/17 03:50 Dimorphic RBCs Not Reportable 03/30/17 03:50 Polychromasia Not Reportable 03/30/17 03:50 Hypochromasia Not Reportable 03/30/17 03:50 Poikilocytosis Not Reportable 03/30/17 03:50 Anisocytosis Few 03/30/17 03:50 Microcytosis Not Reportable 03/30/17 03:50 Macrocytosis Not Reportable 03/30/17 03:50 Spherocytes Not Reportable 03/30/17 03:50 Pappenheimer Bodies Not Reportable 03/30/17 03:50 Sickle Cells Not Reportable 03/30/17 03:50 Target Cells Not Reportable 03/30/17 03:50 Tear Drop Cells Not Reportable 03/30/17 03:50 Ovalocytes Not Reportable 03/30/17 03:50 Helmet Cells Not Reportable 03/30/17 03:50 [place] Bodies Not Reportable 03/30/17 03:50 [place] Rings Not Reportable 03/30/17 03:50 [place] Cells Not Reportable 03/30/17 03:50 Bite Cells Not Reportable 03/30/17 03:50 Crenated Cell Not Reportable 03/30/17 03:50 Elliptocytes Not Reportable 03/30/17 03:50 Acanthocytes (Spur) Not Reportable 03/30/17 03:50 Rouleaux Not Reportable 03/30/17 03:50 Hemoglobin C Crystals Not Reportable 03/30/17 03:50 Schistocytes Not Reportable 03/30/17 03:50 Malaria parasites Not Reportable 03/30/17 03:50 [place] Bodies Not Reportable 03/30/17 03:50 Hem Pathologist Commnt No 03/30/17 03:50 PT 14.9 Sec. (12.2-14.9) 04/10/17 04:16 INR 1.11 (0.87-1.13) 04/10/17 04:16 APTT 27.8 Sec. (24.2-36.6) 04/10/17 04:16 Activated Clotting Time 92 (74-137) 03/29/17 17:47 POC ABG pH 7.551 (7.35-7.45) H 04/30/17 18:20 POC ABG pCO2 32.7 (35-45) L 04/30/17 18:20 POC ABG pO2 101 (80-105) 04/30/17 18:20 POC ABG HCO3 28.7 04/30/17 18:20 POC ABG Total CO2 30 04/30/17 18:20 POC ABG O2 Sat 99 04/30/17 18:20 POC ABG Base Excess 6 04/30/17 18:20 FiO2 30 % 04/30/17 18:20 Sodium 136 mmol/L (137-145) L 05/01/17 05:30 Potassium 3.9 mmol/L (3.6-5.0) 05/01/17 05:30 Chloride 97.6 mmol/L (98-107) L 05/01/17 05:30 Carbon Dioxide 25 mmol/L (22-30) 05/01/17 05:30 Anion Gap 17 mmol/L 05/01/17 05:30 BUN 16 mg/dL (9-20) 05/01/17 05:30 Creatinine 0.2 mg/dL (0.8-1.5) L 05/01/17 05:30 Estimated GFR > 60 ml/min 05/01/17 05:30 BUN/Creatinine Ratio 80 % 05/01/17 05:30 Glucose 123 mg/dL (75-100) H 05/01/17 05:30 POC Glucose 122 (70-105) H 05/05/17 11:41 Calcium 8.9 mg/dL (8.4-10.2) 05/01/17 05:30 Phosphorus 3.50 mg/dL (2.5-4.5) 04/13/17 04:45 Magnesium 1.80 mg/dL (1.7-2.3) 05/01/17 05:30 Total Bilirubin 0.60 mg/dL (0.1-1.2) 05/01/17 05:30 Direct Bilirubin < 0.2 mg/dL (0-0.2) 04/27/17 05:40 Indirect Bilirubin 0.3 mg/dL 04/25/17 04:51 AST 71 units/L (5-40) H 05/01/17 05:30 ALT 125 units/L (7-56) H 05/01/17 05:30 Alkaline Phosphatase 158 units/L (35-129) H 05/01/17 05:30 Total Creatine Kinase 1404 units/L (55-170) H 04/12/17 21:36 CK-MB (CK-2) 8.0 ng/mL (0.0-4.0) H 04/12/17 21:36 CK-MB (CK-2) Rel Index 0.5 (0-4) 04/12/17 21:36 Troponin T 0.767 ng/mL (0.00-0.029) H* 04/12/17 21:36 C-Reactive Protein 21.80 mg/dL (0.00-1.30) H 03/30/17 16:04 Total Protein 6.7 g/dL (6.3-8.2) 05/01/17 05:30 Albumin 2.6 g/dL (3.9-5) L 05/01/17 05:30 Albumin/Globulin Ratio 0.6 % 05/01/17 05:30 Triglycerides 151 mg/dL (2-149) H 04/01/17 04:29 Cholesterol 164 mg/dL (50-199) 03/29/17 19:52 LDL Cholesterol Direct 81 mg/dL (50-130) 03/29/17 19:52 HDL Cholesterol 44 mg/dL (40-59) 03/29/17 19:52 Cholesterol/HDL Ratio 3.72 % 03/29/17 19:52 Urine Color [place] (Yellow) 04/21/17 22:00 Urine Turbidity Clear (Clear) 04/21/17 22:00 Urine pH 5.0 (5.0-7.0) 04/21/17 22:00 Ur Specific [place] 1.029 (1.003-1.030) 04/21/17 22:00 Urine Protein 30 mg/dl mg/dL (Negative) 04/21/17 22:00 Urine Glucose (UA) Neg mg/dL (Negative) 04/21/17 22:00 Urine Ketones Neg mg/dL (Negative) 04/21/17 22:00 Urine Blood Mod (Negative) 04/21/17 22:00 Urine Nitrite Neg (Negative) 04/21/17 22:00 Urine Bilirubin Neg (Negative) 04/21/17 22:00 Urine Urobilinogen 4.0 mg/dL (<2.0) 04/21/17 22:00 Ur Leukocyte Esterase Neg (Negative) 04/21/17 22:00 Urine WBC (Auto) 10.0 /HPF (0.0-6.0) H 04/21/17 22:00 Urine RBC (Auto) 44.0 /HPF (0.0-6.0) 04/21/17 22:00 U Epithel Cells (Auto) < 1.0 /HPF (0-13.0) 04/21/17 22:00 Amorphous Crystals 1+ 03/30/17 09:45 Urine Mucus 3+ /HPF 04/21/17 22:00 Urine Opiates Screen Presumptive negative 03/30/17 09:45 Urine Methadone Screen Presumptive negative 03/30/17 09:45 Ur Barbiturates Screen Presumptive negative 03/30/17 09:45 Ur Phencyclidine Scrn Presumptive negative 03/30/17 09:45 Ur Amphetamines Screen Presumptive positive 03/30/17 09:45 U Benzodiazepines Scrn Presumptive positive 03/30/17 09:45 Urine Cocaine Screen Presumptive negative 03/30/17 09:45 U Marijuana (THC) Screen Presumptive negative 03/30/17 09:45 Drugs of Abuse Note Disclamer 03/30/17 09:45 Miscellaneous Test Flexitest 1 H 04/25/17 07:07 Blood Type O POSITIVE 03/29/17 11:35 Antibody Screen Negative 03/29/17 11:35
[2017-05-06] MEDS: LOPRESSOR PO SCH ×3 (00:20→12:15)
[2017-05-06] MEDS: NOVOLOG SUB-Q SCH ×3 (00:21→12:15)
--- NOTE | 2017-05-06 09:35 | Progress Note ---
Assessment and Plan Out of hospital Vfib arrest Hypoxic encephalopathy. No major changes clinically. Appreciate neurology input STEMI Prior x-rays with residual infiltrate s/p LHC with stent placement Sputum culture positive for MRSA. Prior infiltrate RLL Recommendations Continue PSV/CPAP trials- currently tolerating little, due to apneas, related to hypoventilation events Trach care suction Long-term outcome will depend on neurological status. Appreciate neurology input. We favor modafinil over Ambien in view hypoventilation events however, it can interfere/decrease effectiveness of recent Plavix treatment Critical care time with a 31 minutes of [id number] evaluation and coordination of care Subjective Date of service: 05/06/17 Principal diagnosis: coma Interval history: Off Sedation. Intubated Objective Vital Signs - 12hr 05/05/17 05/05/17 05/05/17 21:45 22:00 22:19 Temperature Pulse Rate 87 87 Pulse Rate [ 86 From Monitor] Pulse Rate [ None] Respiratory 20 23 Rate Blood Pressure O2 Sat by Pulse 99 100 Oximetry O2 Sat by Pulse Oximetry [ Assessment] 05/05/17 05/05/17 05/05/17 22:31 22:49 23:01 Temperature Pulse Rate 88 84 83 Pulse Rate [ From Monitor] Pulse Rate [ None] Respiratory 23 19 22 Rate Blood Pressure 104/68 104/68 104/68 O2 Sat by Pulse 99 97 94 Oximetry O2 Sat by Pulse Oximetry [ Assessment] 05/05/17 05/05/17 05/05/17 23:06 23:09 23:31 Temperature Pulse Rate 80 79 Pulse Rate [ From Monitor] Pulse Rate [ None] Respiratory 19 Rate Blood Pressure 104/68 104/68 O2 Sat by Pulse 92 98 Oximetry O2 Sat by Pulse 94 Oximetry [ Assessment] 05/06/17 05/06/17 05/06/17 00:00 00:20 01:01 Temperature 98.7 F Pulse Rate 86 86 87 Pulse Rate [ 86 From Monitor] Pulse Rate [ None] Respiratory 20 22 22 Rate Blood Pressure 97/61 97/61 97/61 O2 Sat by Pulse 100 Oximetry O2 Sat by Pulse Oximetry [ Assessment] 05/06/17 05/06/17 05/06/17 02:00 02:25 03:00 Temperature Pulse Rate 87 85 Pulse Rate [ From Monitor] Pulse Rate [ 86 None] Respiratory 20 24 20 Rate Blood Pressure 85/56 97/62 99/63 O2 Sat by Pulse 95 100 100 Oximetry O2 Sat by Pulse Oximetry [ Assessment] 05/06/17 05/06/17 05/06/17 03:10 03:43 04:01 Temperature 99.4 F Pulse Rate 85 Pulse Rate [ From Monitor] Pulse Rate [ None] Respiratory Rate Blood Pressure 99/63 97/59 O2 Sat by Pulse 96 100 Oximetry O2 Sat by Pulse Oximetry [ Assessment] 05/06/17 05/06/17 05/06/17 04:15 05:00 06:00 Temperature Pulse Rate 95 H 94 H Pulse Rate [ From Monitor] Pulse Rate [ 89 None] Respiratory 19 20 21 Rate Blood Pressure 101/69 97/62 92/57 O2 Sat by Pulse 97 100 Oximetry O2 Sat by Pulse Oximetry [ Assessment] 05/06/17 05/06/17 05/06/17 07:00 08:00 08:46 Temperature 99.2 F Pulse Rate 91 H 88 87 Pulse Rate [ 84 From Monitor] Pulse Rate [ None] Respiratory 20 20 22 Rate Blood Pressure 86/55 92/59 88/49 O2 Sat by Pulse 100 99 100 Oximetry O2 Sat by Pulse Oximetry [ Assessment] 05/06/17 09:00 Temperature Pulse Rate 87 Pulse Rate [ From Monitor] Pulse Rate [ None] Respiratory 10 L Rate Blood Pressure 91/59 O2 Sat by Pulse Oximetry O2 Sat by Pulse Oximetry [ Assessment] Constitutional: no acute distress, other Eyes: non-icteric ENT: oropharynx moist Neck: supple, no JVD, other (tracheotomy ) Effort: normal Ascultation: Bilateral: clear, diminished breath sounds Percussion: Bilateral: not dull Cardiovascular: regular rate and rhythm Gastrointestinal: normoactive bowel sounds, soft, non-tender, non-distended Integumentary: normal Extremities: no cyanosis, no edema, pink and warm Neurologic: other (comatose, some eye opening on stimuli, otherwise unchaged. ) Psychiatric: other (unable to assess) CBC and BMP: 05/01/17 05:30 05/01/17 05:30 ABG, PT/INR, D-dimer: ABG POC ABG pH 7.551 (7.35-7.45) H 04/30/17 18:20 POC ABG pCO2 32.7 (35-45) L 04/30/17 18:20 POC ABG pO2 101 (80-105) 04/30/17 18:20 POC ABG HCO3 28.7 04/30/17 18:20 POC ABG Total CO2 30 04/30/17 18:20 POC ABG O2 Sat 99 04/30/17 18:20 PT/INR, D-dimer PT 14.9 Sec. (12.2-14.9) 04/10/17 04:16 INR 1.11 (0.87-1.13) 04/10/17 04:16 Abnormal lab findings: Abnormal Labs 03/29/17 03/29/17 03/29/17 11:35 11:35 11:40 WBC RBC Hgb Hct MCV 98 H MCH 33 H Plt Count Lymph % (Auto) [place] % (Auto) Eos % (Auto) Baso % (Auto) Lymph # Baso # Seg Neutrophils % Lymphocytes % (Manual) Monocytes % (Manual) 9.0 H Nucleated RBC % 1.0 H Seg Neutrophils # Seg Neutrophils # Man Monocytes # (Manual) 0.9 H PT 15.8 H INR 1.20 H Activated Clotting Time POC ABG pH POC ABG pCO2 POC ABG pO2 Sodium Potassium 2.7 L* Chloride 95.3 L Carbon Dioxide 17 L BUN Creatinine Glucose 435 H POC Glucose Calcium Magnesium Direct Bilirubin AST ALT Alkaline Phosphatase Total Creatine Kinase CK-MB (CK-2) CK-MB (CK-2) Rel Index Troponin T C-Reactive Protein Total Protein 6.1 L Albumin 3.5 L Triglycerides Ur Specific [place] Urine WBC (Auto) Miscellaneous Test 03/29/17 03/29/17 03/29/17 12:34 13:10 13:25 WBC RBC Hgb Hct MCV MCH Plt Count Lymph % (Auto) [place] % (Auto) Eos % (Auto) Baso % (Auto) Lymph # Baso # Seg Neutrophils % Lymphocytes % (Manual) Monocytes % (Manual) Nucleated RBC % Seg Neutrophils # Seg Neutrophils # Man Monocytes # (Manual) PT INR Activated Clotting Time 142 H 169 H 175 H POC ABG pH POC ABG pCO2 POC ABG pO2 Sodium Potassium Chloride Carbon Dioxide BUN Creatinine Glucose POC Glucose Calcium Magnesium Direct Bilirubin AST ALT Alkaline Phosphatase Total Creatine Kinase CK-MB (CK-2) CK-MB (CK-2) Rel Index Troponin T C-Reactive Protein Total Protein Albumin Triglycerides Ur Specific [place] Urine WBC (Auto) Miscellaneous Test 03/29/17 03/29/17 03/29/17 14:50 15:18 19:52 WBC RBC Hgb Hct MCV MCH Plt Count Lymph % (Auto) [place] % (Auto) Eos % (Auto) Baso % (Auto) Lymph # Baso # Seg Neutrophils % Lymphocytes % (Manual) Monocytes % (Manual) Nucleated RBC % Seg Neutrophils # Seg Neutrophils # Man Monocytes # (Manual) PT INR Activated Clotting Time 175 H POC ABG pH 7.293 L POC ABG pCO2 POC ABG pO2 602 H Sodium Potassium Chloride Carbon Dioxide BUN Creatinine Glucose POC Glucose Calcium Magnesium Direct Bilirubin AST ALT Alkaline Phosphatase Total Creatine Kinase 7263 H CK-MB (CK-2) > 300.0 H CK-MB (CK-2) Rel Index 4.1 H Troponin T 8.080 H* D C-Reactive Protein Total Protein Albumin Triglycerides 195 H Ur Specific [place] Urine WBC (Auto) Miscellaneous Test 03/30/17 03/30/17 03/30/17 03:50 03:50 06:19 WBC 19.5 H RBC Hgb Hct MCV MCH Plt Count Lymph % (Auto) [place] % (Auto) Eos % (Auto) Baso % (Auto) Lymph # Baso # Seg Neutrophils % Lymphocytes % (Manual) 7.0 L Monocytes % (Manual) Nucleated RBC % Seg Neutrophils # Seg Neutrophils # Man 12.7 H Monocytes # (Manual) 1.4 H PT INR Activated Clotting Time POC ABG pH POC ABG pCO2 28.2 L POC ABG pO2 108 H Sodium Potassium Chloride 108.9 H Carbon Dioxide 15 L BUN 25 H Creatinine Glucose 158 H POC Glucose Calcium 8.1 L Magnesium Direct Bilirubin AST ALT Alkaline Phosphatase Total Creatine Kinase 7963 H CK-MB (CK-2) > 300.0 H CK-MB (CK-2) Rel Index Troponin T 6.850 H* C-Reactive Protein Total Protein Albumin Triglycerides Ur Specific [place] Urine WBC (Auto) Miscellaneous Test 03/30/17 03/30/17 03/31/17 09:45 16:04 02:19 WBC RBC Hgb Hct MCV MCH Plt Count Lymph % (Auto) [place] % (Auto) Eos % (Auto) Baso % (Auto) Lymph # Baso # Seg Neutrophils % Lymphocytes % (Manual) Monocytes % (Manual) Nucleated RBC % Seg Neutrophils # Seg Neutrophils # Man Monocytes # (Manual) PT INR Activated Clotting Time POC ABG pH POC ABG pCO2 POC ABG pO2 Sodium Potassium Chloride Carbon Dioxide BUN Creatinine Glucose POC Glucose 137 H Calcium Magnesium Direct Bilirubin AST ALT Alkaline Phosphatase Total Creatine Kinase CK-MB (CK-2) CK-MB (CK-2) Rel Index Troponin T C-Reactive Protein 21.80 H Total Protein Albumin Triglycerides Ur Specific [place] 1.031 H Urine WBC (Auto) Miscellaneous Test 03/31/17 03/31/17 03/31/17 03:57 06:54 09:22 WBC RBC Hgb Hct MCV MCH Plt Count Lymph % (Auto) [place] % (Auto) Eos % (Auto) Baso % (Auto) Lymph # Baso # Seg Neutrophils % Lymphocytes % (Manual) Monocytes % (Manual) Nucleated RBC % Seg Neutrophils # Seg Neutrophils # Man Monocytes # (Manual) PT INR Activated Clotting Time POC ABG pH 7.475 H POC ABG pCO2 25.4 L POC ABG pO2 62 L Sodium Potassium Chloride Carbon Dioxide 19 L BUN 22 H Creatinine 0.6 L Glucose 148 H POC Glucose 143 H Calcium 8.3 L Magnesium Direct Bilirubin AST ALT Alkaline Phosphatase Total Creatine Kinase CK-MB (CK-2) CK-MB (CK-2) Rel Index Troponin T C-Reactive Protein Total Protein Albumin Triglycerides Ur Specific [place] Urine WBC (Auto) Miscellaneous Test 03/31/17 03/31/17 03/31/17 11:40 17:47 23:38 WBC RBC Hgb Hct MCV MCH Plt Count Lymph % (Auto) [place] % (Auto) Eos % (Auto) Baso % (Auto) Lymph # Baso # Seg Neutrophils % Lymphocytes % (Manual) Monocytes % (Manual) Nucleated RBC % Seg Neutrophils # Seg Neutrophils # Man Monocytes # (Manual) PT INR Activated Clotting Time POC ABG pH POC ABG pCO2 POC ABG pO2 Sodium Potassium Chloride Carbon Dioxide BUN Creatinine Glucose POC Glucose 127 H 137 H 148 H Calcium Magnesium Direct Bilirubin AST ALT Alkaline Phosphatase Total Creatine Kinase CK-MB (CK-2) CK-MB (CK-2) Rel Index Troponin T C-Reactive Protein Total Protein Albumin Triglycerides Ur Specific [place] Urine WBC (Auto) Miscellaneous Test 04/01/17 04/01/17 04/01/17 04:29 05:01 11:54 WBC RBC Hgb Hct MCV MCH Plt Count Lymph % (Auto) [place] % (Auto) Eos % (Auto) Baso % (Auto) Lymph # Baso # Seg Neutrophils % Lymphocytes % (Manual) Monocytes % (Manual) Nucleated RBC % Seg Neutrophils # Seg Neutrophils # Man Monocytes # (Manual) PT INR Activated Clotting Time POC ABG pH 7.513 H POC ABG pCO2 22.1 L POC ABG pO2 64 L Sodium Potassium Chloride Carbon Dioxide BUN Creatinine Glucose POC Glucose 121 H Calcium Magnesium Direct Bilirubin AST ALT Alkaline Phosphatase Total Creatine Kinase CK-MB (CK-2) CK-MB (CK-2) Rel Index Troponin T C-Reactive Protein Total Protein Albumin Triglycerides 151 H Ur Specific [place] Urine WBC (Auto) Miscellaneous Test 04/01/17 04/02/17 04/02/17 18:17 00:11 04:52 WBC RBC Hgb Hct MCV MCH Plt Count Lymph % (Auto) [place] % (Auto) Eos % (Auto) Baso % (Auto) Lymph # Baso # Seg Neutrophils % Lymphocytes % (Manual) Monocytes % (Manual) Nucleated RBC % Seg Neutrophils # Seg Neutrophils # Man Monocytes # (Manual) PT INR Activated Clotting Time POC ABG pH 7.524 H POC ABG pCO2 25.5 L POC ABG pO2 66 L Sodium Potassium Chloride Carbon Dioxide BUN Creatinine Glucose POC Glucose 117 H 122 H Calcium Magnesium Direct Bilirubin AST ALT Alkaline Phosphatase Total Creatine Kinase CK-MB (CK-2) CK-MB (CK-2) Rel Index Troponin T C-Reactive Protein Total Protein Albumin Triglycerides Ur Specific [place] Urine WBC (Auto) Miscellaneous Test 04/02/17 04/02/17 04/02/17 05:18 10:41 12:19 WBC RBC Hgb Hct MCV MCH Plt Count Lymph % (Auto) [place] % (Auto) Eos % (Auto) Baso % (Auto) Lymph # Baso # Seg Neutrophils % Lymphocytes % (Manual) Monocytes % (Manual) Nucleated RBC % Seg Neutrophils # Seg Neutrophils # Man Monocytes # (Manual) PT INR Activated Clotting Time POC ABG pH 7.534 H POC ABG pCO2 27.4 L POC ABG pO2 Sodium Potassium Chloride Carbon Dioxide BUN Creatinine Glucose POC Glucose 132 H 129 H Calcium Magnesium Direct Bilirubin AST ALT Alkaline Phosphatase Total Creatine Kinase CK-MB (CK-2) CK-MB (CK-2) Rel Index Troponin T C-Reactive Protein Total Protein Albumin Triglycerides Ur Specific [place] Urine WBC (Auto) Miscellaneous Test 04/02/17 04/03/17 04/03/17 18:05 00:08 05:09 WBC RBC Hgb Hct MCV MCH Plt Count Lymph % (Auto) [place] % (Auto) Eos % (Auto) Baso % (Auto) Lymph # Baso # Seg Neutrophils % Lymphocytes % (Manual) Monocytes % (Manual) Nucleated RBC % Seg Neutrophils # Seg Neutrophils # Man Monocytes # (Manual) PT INR Activated Clotting Time POC ABG pH 7.455 H POC ABG pCO2 33.2 L POC ABG pO2 120 H Sodium Potassium Chloride Carbon Dioxide BUN Creatinine Glucose POC Glucose 136 H 128 H Calcium Magnesium Direct Bilirubin AST ALT Alkaline Phosphatase Total Creatine Kinase CK-MB (CK-2) CK-MB (CK-2) Rel Index Troponin T C-Reactive Protein Total Protein Albumin Triglycerides Ur Specific [place] Urine WBC (Auto) Miscellaneous Test 04/03/17 04/03/17 04/03/17 06:32 11:54 12:16 WBC 11.9 H RBC Hgb Hct MCV MCH Plt Count 125 L Lymph % (Auto) 4.8 L [place] % (Auto) Eos % (Auto) Baso % (Auto) Lymph # 0.6 L Baso # Seg Neutrophils % 86.7 H Lymphocytes % (Manual) Monocytes % (Manual) Nucleated RBC % Seg Neutrophils # 10.3 H Seg Neutrophils # Man Monocytes # (Manual) PT INR Activated Clotting Time POC ABG pH POC ABG pCO2 POC ABG pO2 Sodium Potassium Chloride Carbon Dioxide BUN Creatinine Glucose POC Glucose 138 H 143 H Calcium Magnesium Direct Bilirubin AST ALT Alkaline Phosphatase Total Creatine Kinase CK-MB (CK-2) CK-MB (CK-2) Rel Index Troponin T C-Reactive Protein Total Protein Albumin Triglycerides Ur Specific [place] Urine WBC (Auto) Miscellaneous Test 04/03/17 04/03/17 04/04/17 17:33 23:59 04:34 WBC RBC Hgb Hct MCV MCH Plt Count Lymph % (Auto) [place] % (Auto) Eos % (Auto) Baso % (Auto) Lymph # Baso # Seg Neutrophils % Lymphocytes % (Manual) Monocytes % (Manual) Nucleated RBC % Seg Neutrophils # Seg Neutrophils # Man Monocytes # (Manual) PT INR Activated Clotting Time POC ABG pH 7.457 H POC ABG pCO2 29.8 L POC ABG pO2 76 L Sodium Potassium Chloride Carbon Dioxide BUN Creatinine Glucose POC Glucose 130 H 155 H Calcium Magnesium Direct Bilirubin AST ALT Alkaline Phosphatase Total Creatine Kinase CK-MB (CK-2) CK-MB (CK-2) Rel Index Troponin T C-Reactive Protein Total Protein Albumin Triglycerides Ur Specific [place] Urine WBC (Auto) Miscellaneous Test 04/04/17 04/04/17 04/04/17 05:27 12:22 18:18 WBC RBC Hgb Hct MCV MCH Plt Count Lymph % (Auto) [place] % (Auto) Eos % (Auto) Baso % (Auto) Lymph # Baso # Seg Neutrophils % Lymphocytes % (Manual) Monocytes % (Manual) Nucleated RBC % Seg Neutrophils # Seg Neutrophils # Man Monocytes # (Manual) PT INR Activated Clotting Time POC ABG pH POC ABG pCO2 POC ABG pO2 Sodium Potassium Chloride Carbon Dioxide BUN Creatinine Glucose POC Glucose 164 H 146 H 130 H Calcium Magnesium Direct Bilirubin AST ALT Alkaline Phosphatase Total Creatine Kinase CK-MB (CK-2) CK-MB (CK-2) Rel Index Troponin T C-Reactive Protein Total Protein Albumin Triglycerides Ur Specific [place] Urine WBC (Auto) Miscellaneous Test 04/05/17 04/05/17 04/05/17 04:43 05:28 11:36 WBC RBC Hgb Hct MCV MCH Plt Count Lymph % (Auto) [place] % (Auto) Eos % (Auto) Baso % (Auto) Lymph # Baso # Seg Neutrophils % Lymphocytes % (Manual) Monocytes % (Manual) Nucleated RBC % Seg Neutrophils # Seg Neutrophils # Man Monocytes # (Manual) PT INR Activated Clotting Time POC ABG pH 7.479 H POC ABG pCO2 33.5 L POC ABG pO2 76 L Sodium Potassium Chloride Carbon Dioxide BUN Creatinine Glucose POC Glucose 145 H 136 H Calcium Magnesium Direct Bilirubin AST ALT Alkaline Phosphatase Total Creatine Kinase CK-MB (CK-2) CK-MB (CK-2) Rel Index Troponin T C-Reactive Protein Total Protein Albumin Triglycerides Ur Specific [place] Urine WBC (Auto) Miscellaneous Test 04/05/17 04/06/17 04/06/17 17:58 00:16 05:26 WBC RBC Hgb Hct MCV MCH Plt Count Lymph % (Auto) [place] % (Auto) Eos % (Auto) Baso % (Auto) Lymph # Baso # Seg Neutrophils % Lymphocytes % (Manual) Monocytes % (Manual) Nucleated RBC % Seg Neutrophils # Seg Neutrophils # Man Monocytes # (Manual) PT INR Activated Clotting Time POC ABG pH POC ABG pCO2 POC ABG pO2 Sodium Potassium Chloride Carbon Dioxide BUN Creatinine Glucose POC Glucose 130 H 159 H 146 H Calcium Magnesium Direct Bilirubin AST ALT Alkaline Phosphatase Total Creatine Kinase CK-MB (CK-2) CK-MB (CK-2) Rel Index Troponin T C-Reactive Protein Total Protein Albumin Triglycerides Ur Specific [place] Urine WBC (Auto) Miscellaneous Test 04/06/17 04/06/17 04/07/17 13:11 16:54 11:45 WBC RBC Hgb Hct MCV MCH Plt Count Lymph % (Auto) [place] % (Auto) Eos % (Auto) Baso % (Auto) Lymph # Baso # Seg Neutrophils % Lymphocytes % (Manual) Monocytes % (Manual) Nucleated RBC % Seg Neutrophils # Seg Neutrophils # Man Monocytes # (Manual) PT INR Activated Clotting Time POC ABG pH 7.517 H POC ABG pCO2 32.1 L POC ABG pO2 Sodium Potassium Chloride Carbon Dioxide BUN Creatinine Glucose POC Glucose 132 H 123 H Calcium Magnesium Direct Bilirubin AST ALT Alkaline Phosphatase Total Creatine Kinase CK-MB (CK-2) CK-MB (CK-2) Rel Index Troponin T C-Reactive Protein Total Protein Albumin Triglycerides Ur Specific [place] Urine WBC (Auto) Miscellaneous Test 04/07/17 04/07/17 04/07/17 12:51 17:40 23:55 WBC RBC Hgb Hct MCV MCH Plt Count Lymph % (Auto) [place] % (Auto) Eos % (Auto) Baso % (Auto) Lymph # Baso # Seg Neutrophils % Lymphocytes % (Manual) Monocytes % (Manual) Nucleated RBC % Seg Neutrophils # Seg Neutrophils # Man Monocytes # (Manual) PT INR Activated Clotting Time POC ABG pH POC ABG pCO2 POC ABG pO2 Sodium Potassium Chloride Carbon Dioxide BUN Creatinine Glucose POC Glucose 138 H 154 H 143 H Calcium Magnesium Direct Bilirubin AST ALT Alkaline Phosphatase Total Creatine Kinase CK-MB (CK-2) CK-MB (CK-2) Rel Index Troponin T C-Reactive Protein Total Protein Albumin Triglycerides Ur Specific [place] Urine WBC (Auto) Miscellaneous Test 04/08/17 04/08/17 04/08/17 05:27 11:14 17:44 WBC RBC Hgb Hct MCV MCH Plt Count Lymph % (Auto) [place] % (Auto) Eos % (Auto) Baso % (Auto) Lymph # Baso # Seg Neutrophils % Lymphocytes % (Manual) Monocytes % (Manual) Nucleated RBC % Seg Neutrophils # Seg Neutrophils # Man Monocytes # (Manual) PT INR Activated Clotting Time POC ABG pH POC ABG pCO2 POC ABG pO2 Sodium Potassium Chloride Carbon Dioxide BUN Creatinine Glucose POC Glucose 142 H 153 H 129 H Calcium Magnesium Direct Bilirubin AST ALT Alkaline Phosphatase Total Creatine Kinase CK-MB (CK-2) CK-MB (CK-2) Rel Index Troponin T C-Reactive Protein Total Protein Albumin Triglycerides Ur Specific [place] Urine WBC (Auto) Miscellaneous Test 04/09/17 04/09/17 04/09/17 08:20 11:21 17:37 WBC RBC Hgb Hct MCV MCH Plt Count Lymph % (Auto) [place] % (Auto) Eos % (Auto) Baso % (Auto) Lymph # Baso # Seg Neutrophils % Lymphocytes % (Manual) Monocytes % (Manual) Nucleated RBC % Seg Neutrophils # Seg Neutrophils # Man Monocytes # (Manual) PT INR Activated Clotting Time POC ABG pH POC ABG pCO2 POC ABG pO2 Sodium 147 H Potassium Chloride 108.8 H Carbon Dioxide BUN 39 H Creatinine 0.5 L Glucose 138 H POC Glucose 152 H 109 H Calcium Magnesium Direct Bilirubin AST ALT Alkaline Phosphatase Total Creatine Kinase CK-MB (CK-2) CK-MB (CK-2) Rel Index Troponin T C-Reactive Protein Total Protein Albumin Triglycerides Ur Specific [place] Urine WBC (Auto) Miscellaneous Test 04/10/17 04/10/17 04/10/17 00:13 04:16 04:16 WBC RBC Hgb 11.5 L Hct MCV 96 H MCH Plt Count 103 L Lymph % (Auto) 11.1 L [place] % (Auto) Eos % (Auto) Baso % (Auto) Lymph # Baso # Seg Neutrophils % 81.5 H Lymphocytes % (Manual) Monocytes % (Manual) Nucleated RBC % Seg Neutrophils # 8.8 H Seg Neutrophils # Man Monocytes # (Manual) PT INR Activated Clotting Time POC ABG pH POC ABG pCO2 POC ABG pO2 Sodium 148 H Potassium Chloride 109.0 H Carbon Dioxide BUN 36 H Creatinine 0.5 L Glucose 131 H POC Glucose 127 H Calcium 8.1 L Magnesium 2.40 H Direct Bilirubin AST 206 H ALT 228 H Alkaline Phosphatase 178 H Total Creatine Kinase CK-MB (CK-2) CK-MB (CK-2) Rel Index Troponin T C-Reactive Protein Total Protein Albumin 2.8 L Triglycerides Ur Specific [place] Urine WBC (Auto) Miscellaneous Test 04/10/17 04/10/17 04/10/17 06:01 11:57 18:27 WBC RBC Hgb Hct MCV MCH Plt Count Lymph % (Auto) [place] % (Auto) Eos % (Auto) Baso % (Auto) Lymph # Baso # Seg Neutrophils % Lymphocytes % (Manual) Monocytes % (Manual) Nucleated RBC % Seg Neutrophils # Seg Neutrophils # Man Monocytes # (Manual) PT INR Activated Clotting Time POC ABG pH POC ABG pCO2 POC ABG pO2 Sodium Potassium Chloride Carbon Dioxide BUN Creatinine Glucose POC Glucose 108 H 154 H 130 H Calcium Magnesium Direct Bilirubin AST ALT Alkaline Phosphatase Total Creatine Kinase CK-MB (CK-2) CK-MB (CK-2) Rel Index Troponin T C-Reactive Protein Total Protein Albumin Triglycerides Ur Specific [place] Urine WBC (Auto) Miscellaneous Test 04/11/17 04/11/17 04/12/17 12:25 17:10 00:22 WBC RBC Hgb Hct MCV MCH Plt Count Lymph % (Auto) [place] % (Auto) Eos % (Auto) Baso % (Auto) Lymph # Baso # Seg Neutrophils % Lymphocytes % (Manual) Monocytes % (Manual) Nucleated RBC % Seg Neutrophils # Seg Neutrophils # Man Monocytes # (Manual) PT INR Activated Clotting Time POC ABG pH POC ABG pCO2 POC ABG pO2 Sodium Potassium Chloride Carbon Dioxide BUN Creatinine Glucose POC Glucose 107 H 129 H 128 H Calcium Magnesium Direct Bilirubin AST ALT Alkaline Phosphatase Total Creatine Kinase CK-MB (CK-2) CK-MB (CK-2) Rel Index Troponin T C-Reactive Protein Total Protein Albumin Triglycerides Ur Specific [place] Urine WBC (Auto) Miscellaneous Test 04/12/17 04/12/17 04/12/17 05:00 11:57 17:47 WBC RBC Hgb Hct MCV MCH Plt Count Lymph % (Auto) [place] % (Auto) Eos % (Auto) Baso % (Auto) Lymph # Baso # Seg Neutrophils % Lymphocytes % (Manual) Monocytes % (Manual) Nucleated RBC % Seg Neutrophils # Seg Neutrophils # Man Monocytes # (Manual) PT INR Activated Clotting Time POC ABG pH POC ABG pCO2 POC ABG pO2 Sodium Potassium Chloride Carbon Dioxide BUN Creatinine Glucose POC Glucose 140 H 142 H Calcium Magnesium Direct Bilirubin AST 158 H ALT 184 H Alkaline Phosphatase 170 H Total Creatine Kinase CK-MB (CK-2) CK-MB (CK-2) Rel Index Troponin T C-Reactive Protein Total Protein Albumin 2.8 L Triglycerides Ur Specific [place] Urine WBC (Auto) Miscellaneous Test 04/12/17 04/12/1704/13/18 21:36 21:36 01:37 WBC RBC Hgb Hct MCV MCH Plt Count Lymph % (Auto) [place] % (Auto) Eos % (Auto) Baso % (Auto) Lymph # Baso # Seg Neutrophils % Lymphocytes % (Manual) Monocytes % (Manual) Nucleated RBC % Seg Neutrophils # Seg Neutrophils # Man Monocytes # (Manual) PT INR Activated Clotting Time POC ABG pH POC ABG pCO2 POC ABG pO2 Sodium Potassium Chloride Carbon Dioxide BUN Creatinine Glucose POC Glucose 126 H Calcium Magnesium Direct Bilirubin AST ALT Alkaline Phosphatase Total Creatine Kinase 1404 H CK-MB (CK-2) 8.0 H CK-MB (CK-2) Rel Index Troponin T 0.767 H* C-Reactive Protein Total Protein Albumin Triglycerides Ur Specific [place] Urine WBC (Auto) Miscellaneous Test 04/13/17 04/13/17 04/13/17 04:45 04:52 12:17 WBC RBC Hgb Hct MCV MCH Plt Count Lymph % (Auto) [place] % (Auto) Eos % (Auto) Baso % (Auto) Lymph # Baso # Seg Neutrophils % Lymphocytes % (Manual) Monocytes % (Manual) Nucleated RBC % Seg Neutrophils # Seg Neutrophils # Man Monocytes # (Manual) PT INR Activated Clotting Time POC ABG pH POC ABG pCO2 POC ABG pO2 Sodium 148 H Potassium Chloride 112.8 H Carbon Dioxide BUN 33 H Creatinine 0.4 L Glucose 121 H POC Glucose 126 H 149 H Calcium Magnesium Direct Bilirubin AST 160 H ALT 189 H Alkaline Phosphatase 166 H Total Creatine Kinase CK-MB (CK-2) CK-MB (CK-2) Rel Index Troponin T C-Reactive Protein Total Protein Albumin 2.6 L Triglycerides Ur Specific [place] Urine WBC (Auto) Miscellaneous Test 04/13/17 04/14/17 04/14/17 17:45 00:20 00:45 WBC RBC Hgb Hct MCV MCH Plt Count Lymph % (Auto) [place] % (Auto) Eos % (Auto) Baso % (Auto) Lymph # Baso # Seg Neutrophils % Lymphocytes % (Manual) Monocytes % (Manual) Nucleated RBC % Seg Neutrophils # Seg Neutrophils # Man Monocytes # (Manual) PT INR Activated Clotting Time POC ABG pH POC ABG pCO2 POC ABG pO2 Sodium Potassium Chloride Carbon Dioxide BUN Creatinine Glucose POC Glucose 130 H 144 H 144 H Calcium Magnesium Direct Bilirubin AST ALT Alkaline Phosphatase Total Creatine Kinase CK-MB (CK-2) CK-MB (CK-2) Rel Index Troponin T C-Reactive Protein Total Protein Albumin Triglycerides Ur Specific [place] Urine WBC (Auto) Miscellaneous Test 04/14/17 04/14/17 04/14/17 05:40 11:06 11:31 WBC RBC Hgb Hct MCV MCH Plt Count Lymph % (Auto) [place] % (Auto) Eos % (Auto) Baso % (Auto) Lymph # Baso # Seg Neutrophils % Lymphocytes % (Manual) Monocytes % (Manual) Nucleated RBC % Seg Neutrophils # Seg Neutrophils # Man Monocytes # (Manual) PT INR Activated Clotting Time POC ABG pH POC ABG pCO2 POC ABG pO2 Sodium Potassium Chloride Carbon Dioxide BUN Creatinine Glucose POC Glucose 139 H 123 H Calcium Magnesium Direct Bilirubin AST ALT Alkaline Phosphatase Total Creatine Kinase CK-MB (CK-2) CK-MB (CK-2) Rel Index Troponin T C-Reactive Protein Total Protein Albumin Triglycerides Ur Specific [place] 1.033 H Urine WBC (Auto) > 182.0 H Miscellaneous Test 04/14/17 04/14/17 04/15/17 18:00 23:52 05:15 WBC 12.5 H RBC 3.38 L Hgb 10.6 L Hct 32.7 L MCV 97 H MCH Plt Count 107 L Lymph % (Auto) 8.7 L [place] % (Auto) Eos % (Auto) Baso % (Auto) Lymph # 1.1 L Baso # Seg Neutrophils % 86.1 H Lymphocytes % (Manual) Monocytes % (Manual) Nucleated RBC % Seg Neutrophils # 10.7 H Seg Neutrophils # Man Monocytes # (Manual) PT INR Activated Clotting Time POC ABG pH POC ABG pCO2 POC ABG pO2 Sodium Potassium Chloride Carbon Dioxide BUN Creatinine Glucose POC Glucose 133 H 133 H Calcium Magnesium Direct Bilirubin AST ALT Alkaline Phosphatase Total Creatine Kinase CK-MB (CK-2) CK-MB (CK-2) Rel Index Troponin T C-Reactive Protein Total Protein Albumin Triglycerides Ur Specific [place] Urine WBC (Auto) Miscellaneous Test 04/15/17 04/15/17 04/15/17 05:15 05:25 11:50 WBC RBC Hgb Hct MCV MCH Plt Count Lymph % (Auto) [place] % (Auto) Eos % (Auto) Baso % (Auto) Lymph # Baso # Seg Neutrophils % Lymphocytes % (Manual) Monocytes % (Manual) Nucleated RBC % Seg Neutrophils # Seg Neutrophils # Man Monocytes # (Manual) PT INR Activated Clotting Time POC ABG pH POC ABG pCO2 POC ABG pO2 Sodium 149 H Potassium 3.5 L Chloride 114.1 H Carbon Dioxide 21 L BUN 29 H Creatinine 0.4 L Glucose 128 H POC Glucose 133 H 107 H Calcium 8.3 L Magnesium Direct Bilirubin 0.4 H AST 149 H ALT 182 H Alkaline Phosphatase 143 H Total Creatine Kinase CK-MB (CK-2) CK-MB (CK-2) Rel Index Troponin T C-Reactive Protein Total Protein Albumin 2.5 L Triglycerides Ur Specific [place] Urine WBC (Auto) Miscellaneous Test 04/15/17 04/16/17 04/16/17 16:55 00:02 03:17 WBC RBC 3.39 L Hgb 10.5 L Hct 32.4 L MCV 96 H MCH Plt Count 106 L Lymph % (Auto) 6.7 L [place] % (Auto) Eos % (Auto) Baso % (Auto) Lymph # 0.6 L Baso # Seg Neutrophils % 86.8 H Lymphocytes % (Manual) Monocytes % (Manual) Nucleated RBC % Seg Neutrophils # 8.2 H Seg Neutrophils # Man Monocytes # (Manual) PT INR Activated Clotting Time POC ABG pH POC ABG pCO2 POC ABG pO2 Sodium Potassium Chloride Carbon Dioxide BUN Creatinine Glucose POC Glucose 146 H 148 H Calcium Magnesium Direct Bilirubin AST ALT Alkaline Phosphatase Total Creatine Kinase CK-MB (CK-2) CK-MB (CK-2) Rel Index Troponin T C-Reactive Protein Total Protein Albumin Triglycerides Ur Specific [place] Urine WBC (Auto) Miscellaneous Test 04/16/17 04/16/17 04/16/17 03:17 05:19 11:13 WBC RBC Hgb Hct MCV MCH Plt Count Lymph % (Auto) [place] % (Auto) Eos % (Auto) Baso % (Auto) Lymph # Baso # Seg Neutrophils % Lymphocytes % (Manual) Monocytes % (Manual) Nucleated RBC % Seg Neutrophils # Seg Neutrophils # Man Monocytes # (Manual) PT INR Activated Clotting Time POC ABG pH POC ABG pCO2 POC ABG pO2 Sodium 149 H Potassium Chloride 111.1 H Carbon Dioxide 20 L BUN 27 H Creatinine 0.3 L Glucose 156 H POC Glucose 171 H 169 H Calcium 8.3 L Magnesium Direct Bilirubin AST ALT Alkaline Phosphatase Total Creatine Kinase CK-MB (CK-2) CK-MB (CK-2) Rel Index Troponin T C-Reactive Protein Total Protein Albumin Triglycerides Ur Specific [place] Urine WBC (Auto) Miscellaneous Test 04/16/17 04/17/17 04/17/17 17:03 00:00 05:09 WBC RBC Hgb Hct MCV MCH Plt Count Lymph % (Auto) [place] % (Auto) Eos % (Auto) Baso % (Auto) Lymph # Baso # Seg Neutrophils % Lymphocytes % (Manual) Monocytes % (Manual) Nucleated RBC % Seg Neutrophils # Seg Neutrophils # Man Monocytes # (Manual) PT INR Activated Clotting Time POC ABG pH POC ABG pCO2 POC ABG pO2 Sodium Potassium Chloride Carbon Dioxide BUN Creatinine Glucose POC Glucose 151 H 165 H 145 H Calcium Magnesium Direct Bilirubin AST ALT Alkaline Phosphatase Total Creatine Kinase CK-MB (CK-2) CK-MB (CK-2) Rel Index Troponin T C-Reactive Protein Total Protein Albumin Triglycerides Ur Specific [place] Urine WBC (Auto) Miscellaneous Test 04/17/17 04/17/17 04/18/17 11:38 17:47 00:01 WBC RBC Hgb Hct MCV MCH Plt Count Lymph % (Auto) [place] % (Auto) Eos % (Auto) Baso % (Auto) Lymph # Baso # Seg Neutrophils % Lymphocytes % (Manual) Monocytes % (Manual) Nucleated RBC % Seg Neutrophils # Seg Neutrophils # Man Monocytes # (Manual) PT INR Activated Clotting Time POC ABG pH POC ABG pCO2 POC ABG pO2 Sodium Potassium Chloride Carbon Dioxide BUN Creatinine Glucose POC Glucose 170 H 161 H 131 H Calcium Magnesium Direct Bilirubin AST ALT Alkaline Phosphatase Total Creatine Kinase CK-MB (CK-2) CK-MB (CK-2) Rel Index Troponin T C-Reactive Protein Total Protein Albumin Triglycerides Ur Specific [place] Urine WBC (Auto) Miscellaneous Test 04/18/17 04/18/17 04/18/17 03:55 03:55 05:30 WBC RBC 3.05 L Hgb 9.8 L Hct 29.0 L MCV 95 H MCH Plt Count 113 L Lymph % (Auto) [place] % (Auto) Eos % (Auto) 5.3 H Baso % (Auto) Lymph # Baso # Seg Neutrophils % 71.5 H Lymphocytes % (Manual) Monocytes % (Manual) Nucleated RBC % Seg Neutrophils # Seg Neutrophils # Man Monocytes # (Manual) PT INR Activated Clotting Time POC ABG pH 7.460 H POC ABG pCO2 30.8 L POC ABG pO2 129 H Sodium Potassium Chloride Carbon Dioxide 21 L BUN 25 H Creatinine 0.4 L Glucose 123 H POC Glucose Calcium 8.3 L Magnesium Direct Bilirubin AST ALT Alkaline Phosphatase Total Creatine Kinase CK-MB (CK-2) CK-MB (CK-2) Rel Index Troponin T C-Reactive Protein Total Protein Albumin Triglycerides Ur Specific [place] Urine WBC (Auto) Miscellaneous Test 04/18/17 04/18/17 04/19/17 17:10 23:40 04:36 WBC RBC 3.21 L Hgb 10.2 L Hct 30.4 L MCV 95 H MCH Plt Count 131 L Lymph % (Auto) 12.1 L [place] % (Auto) Eos % (Auto) 4.7 H Baso % (Auto) 2.4 H Lymph # 0.9 L Baso # 0.2 H Seg Neutrophils % 75.0 H Lymphocytes % (Manual) Monocytes % (Manual) Nucleated RBC % Seg Neutrophils # Seg Neutrophils # Man Monocytes # (Manual) PT INR Activated Clotting Time POC ABG pH POC ABG pCO2 POC ABG pO2 Sodium Potassium Chloride Carbon Dioxide BUN Creatinine Glucose POC Glucose 135 H 157 H Calcium Magnesium Direct Bilirubin AST ALT Alkaline Phosphatase Total Creatine Kinase CK-MB (CK-2) CK-MB (CK-2) Rel Index Troponin T C-Reactive Protein Total Protein Albumin Triglycerides Ur Specific [place] Urine WBC (Auto) Miscellaneous Test 04/19/17 04/19/17 04/19/17 04:36 05:12 06:50 WBC RBC Hgb Hct MCV MCH Plt Count Lymph % (Auto) [place] % (Auto) Eos % (Auto) Baso % (Auto) Lymph # Baso # Seg Neutrophils % Lymphocytes % (Manual) Monocytes % (Manual) Nucleated RBC % Seg Neutrophils # Seg Neutrophils # Man Monocytes # (Manual) PT INR Activated Clotting Time POC ABG pH 7.516 H POC ABG pCO2 28.0 L POC ABG pO2 Sodium Potassium Chloride Carbon Dioxide 21 L BUN 23 H Creatinine 0.2 L Glucose 137 H POC Glucose 131 H Calcium 7.9 L Magnesium Direct Bilirubin AST ALT Alkaline Phosphatase Total Creatine Kinase CK-MB (CK-2) CK-MB (CK-2) Rel Index Troponin T C-Reactive Protein Total Protein Albumin Triglycerides Ur Specific [place] Urine WBC (Auto) Miscellaneous Test 04/19/17 04/19/17 04/20/17 12:36 17:42 00:12 WBC RBC Hgb Hct MCV MCH Plt Count Lymph % (Auto) [place] % (Auto) Eos % (Auto) Baso % (Auto) Lymph # Baso # Seg Neutrophils % Lymphocytes % (Manual) Monocytes % (Manual) Nucleated RBC % Seg Neutrophils # Seg Neutrophils # Man Monocytes # (Manual) PT INR Activated Clotting Time POC ABG pH POC ABG pCO2 POC ABG pO2 Sodium Potassium Chloride Carbon Dioxide BUN Creatinine Glucose POC Glucose 128 H 140 H 132 H Calcium Magnesium Direct Bilirubin AST ALT Alkaline Phosphatase Total Creatine Kinase CK-MB (CK-2) CK-MB (CK-2) Rel Index Troponin T C-Reactive Protein Total Protein Albumin Triglycerides Ur Specific [place] Urine WBC (Auto) Miscellaneous Test 04/20/17 04/20/17 04/20/17 03:35 03:35 05:10 WBC RBC 3.34 L Hgb 10.4 L Hct 31.6 L MCV 95 H MCH Plt Count Lymph % (Auto) 12.9 L [place] % (Auto) Eos % (Auto) Baso % (Auto) Lymph # Baso # Seg Neutrophils % 77.3 H Lymphocytes % (Manual) Monocytes % (Manual) Nucleated RBC % Seg Neutrophils # Seg Neutrophils # Man Monocytes # (Manual) PT INR Activated Clotting Time POC ABG pH POC ABG pCO2 POC ABG pO2 Sodium Potassium Chloride Carbon Dioxide BUN Creatinine 0.3 L Glucose 155 H POC Glucose 135 H Calcium 7.8 L Magnesium Direct Bilirubin AST ALT Alkaline Phosphatase Total Creatine Kinase CK-MB (CK-2) CK-MB (CK-2) Rel Index Troponin T C-Reactive Protein Total Protein Albumin Triglycerides Ur Specific [place] Urine WBC (Auto) Miscellaneous Test 04/20/17 04/20/17 04/21/17 12:49 18:21 00:05 WBC RBC Hgb Hct MCV MCH Plt Count Lymph % (Auto) [place] % (Auto) Eos % (Auto) Baso % (Auto) Lymph # Baso # Seg Neutrophils % Lymphocytes % (Manual) Monocytes % (Manual) Nucleated RBC % Seg Neutrophils # Seg Neutrophils # Man Monocytes # (Manual) PT INR Activated Clotting Time POC ABG pH POC ABG pCO2 POC ABG pO2 Sodium Potassium Chloride Carbon Dioxide BUN Creatinine Glucose POC Glucose 155 H 165 H 141 H Calcium Magnesium Direct Bilirubin AST ALT Alkaline Phosphatase Total Creatine Kinase CK-MB (CK-2) CK-MB (CK-2) Rel Index Troponin T C-Reactive Protein Total Protein Albumin Triglycerides Ur Specific [place] Urine WBC (Auto) Miscellaneous Test 04/21/17 04/21/17 04/21/17 06:00 12:11 17:04 WBC RBC Hgb Hct MCV MCH Plt Count Lymph % (Auto) [place] % (Auto) Eos % (Auto) Baso % (Auto) Lymph # Baso # Seg Neutrophils % Lymphocytes % (Manual) Monocytes % (Manual) Nucleated RBC % Seg Neutrophils # Seg Neutrophils # Man Monocytes # (Manual) PT INR Activated Clotting Time POC ABG pH POC ABG pCO2 POC ABG pO2 Sodium Potassium Chloride Carbon Dioxide BUN Creatinine Glucose POC Glucose 152 H 165 H 156 H Calcium Magnesium Direct Bilirubin AST ALT Alkaline Phosphatase Total Creatine Kinase CK-MB (CK-2) CK-MB (CK-2) Rel Index Troponin T C-Reactive Protein Total Protein Albumin Triglycerides Ur Specific [place] Urine WBC (Auto) Miscellaneous Test 04/21/17 04/21/17 04/22/17 22:00 23:59 05:49 WBC RBC Hgb Hct MCV MCH Plt Count Lymph % (Auto) [place] % (Auto) Eos % (Auto) Baso % (Auto) Lymph # Baso # Seg Neutrophils % Lymphocytes % (Manual) Monocytes % (Manual) Nucleated RBC % Seg Neutrophils # Seg Neutrophils # Man Monocytes # (Manual) PT INR Activated Clotting Time POC ABG pH POC ABG pCO2 POC ABG pO2 Sodium Potassium Chloride Carbon Dioxide BUN Creatinine Glucose POC Glucose 166 H 173 H Calcium Magnesium Direct Bilirubin AST ALT Alkaline Phosphatase Total Creatine Kinase CK-MB (CK-2) CK-MB (CK-2) Rel Index Troponin T C-Reactive Protein Total Protein Albumin Triglycerides Ur Specific [place] Urine WBC (Auto) 10.0 H Miscellaneous Test 04/22/17 04/22/17 04/23/17 11:11 18:04 00:37 WBC RBC Hgb Hct MCV MCH Plt Count Lymph % (Auto) [place] % (Auto) Eos % (Auto) Baso % (Auto) Lymph # Baso # Seg Neutrophils % Lymphocytes % (Manual) Monocytes % (Manual) Nucleated RBC % Seg Neutrophils # Seg Neutrophils # Man Monocytes # (Manual) PT INR Activated Clotting Time POC ABG pH POC ABG pCO2 POC ABG pO2 Sodium Potassium Chloride Carbon Dioxide BUN Creatinine Glucose POC Glucose 172 H 140 H 135 H Calcium Magnesium Direct Bilirubin AST ALT Alkaline Phosphatase Total Creatine Kinase CK-MB (CK-2) CK-MB (CK-2) Rel Index Troponin T C-Reactive Protein Total Protein Albumin Triglycerides Ur Specific [place] Urine WBC (Auto) Miscellaneous Test 04/23/17 04/23/17 04/23/17 05:33 06:20 11:10 WBC RBC 3.19 L Hgb 9.9 L Hct 30.0 L MCV MCH Plt Count Lymph % (Auto) 8.0 L [place] % (Auto) Eos % (Auto) Baso % (Auto) Lymph # 0.8 L Baso # Seg Neutrophils % 84.5 H Lymphocytes % (Manual) Monocytes % (Manual) Nucleated RBC % Seg Neutrophils # 8.2 H Seg Neutrophils # Man Monocytes # (Manual) PT INR Activated Clotting Time POC ABG pH POC ABG pCO2 POC ABG pO2 Sodium Potassium Chloride Carbon Dioxide BUN Creatinine Glucose POC Glucose 134 H 134 H Calcium Magnesium Direct Bilirubin AST ALT Alkaline Phosphatase Total Creatine Kinase CK-MB (CK-2) CK-MB (CK-2) Rel Index Troponin T C-Reactive Protein Total Protein Albumin Triglycerides Ur Specific [place] Urine WBC (Auto) Miscellaneous Test 04/23/17 04/24/17 04/24/17 17:26 00:53 06:46 WBC RBC Hgb Hct MCV MCH Plt Count Lymph % (Auto) [place] % (Auto) Eos % (Auto) Baso % (Auto) Lymph # Baso # Seg Neutrophils % Lymphocytes % (Manual) Monocytes % (Manual) Nucleated RBC % Seg Neutrophils # Seg Neutrophils # Man Monocytes # (Manual) PT INR Activated Clotting Time POC ABG pH POC ABG pCO2 POC ABG pO2 Sodium Potassium Chloride Carbon Dioxide BUN Creatinine Glucose POC Glucose 164 H 146 H 125 H Calcium Magnesium Direct Bilirubin AST ALT Alkaline Phosphatase Total Creatine Kinase CK-MB (CK-2) CK-MB (CK-2) Rel Index Troponin T C-Reactive Protein Total Protein Albumin Triglycerides Ur Specific [place] Urine WBC (Auto) Miscellaneous Test 04/24/17 04/24/17 04/24/17 11:55 17:50 23:36 WBC RBC Hgb Hct MCV MCH Plt Count Lymph % (Auto) [place] % (Auto) Eos % (Auto) Baso % (Auto) Lymph # Baso # Seg Neutrophils % Lymphocytes % (Manual) Monocytes % (Manual) Nucleated RBC % Seg Neutrophils # Seg Neutrophils # Man Monocytes # (Manual) PT INR Activated Clotting Time POC ABG pH POC ABG pCO2 POC ABG pO2 Sodium Potassium Chloride Carbon Dioxide BUN Creatinine Glucose POC Glucose 156 H 146 H 131 H Calcium Magnesium Direct Bilirubin AST ALT Alkaline Phosphatase Total Creatine Kinase CK-MB (CK-2) CK-MB (CK-2) Rel Index Troponin T C-Reactive Protein Total Protein Albumin Triglycerides Ur Specific [place] Urine WBC (Auto) Miscellaneous Test 04/25/17 04/25/17 04/25/17 04:51 05:16 07:07 WBC RBC Hgb Hct MCV MCH Plt Count Lymph % (Auto) [place] % (Auto) Eos % (Auto) Baso % (Auto) Lymph # Baso # Seg Neutrophils % Lymphocytes % (Manual) Monocytes % (Manual) Nucleated RBC % Seg Neutrophils # Seg Neutrophils # Man Monocytes # (Manual) PT INR Activated Clotting Time POC ABG pH POC ABG pCO2 POC ABG pO2 Sodium Potassium Chloride Carbon Dioxide BUN Creatinine Glucose POC Glucose 139 H Calcium Magnesium Direct Bilirubin AST 105 H ALT 204 H Alkaline Phosphatase 189 H Total Creatine Kinase CK-MB (CK-2) CK-MB (CK-2) Rel Index Troponin T C-Reactive Protein Total Protein Albumin 2.4 L Triglycerides Ur Specific [place] Urine WBC (Auto) Miscellaneous Test Flexitest 1 H 04/25/17 04/25/17 04/25/17 12:29 17:23 23:32 WBC RBC Hgb Hct MCV MCH Plt Count Lymph % (Auto) [place] % (Auto) Eos % (Auto) Baso % (Auto) Lymph # Baso # Seg Neutrophils % Lymphocytes % (Manual) Monocytes % (Manual) Nucleated RBC % Seg Neutrophils # Seg Neutrophils # Man Monocytes # (Manual) PT INR Activated Clotting Time POC ABG pH POC ABG pCO2 POC ABG pO2 Sodium Potassium Chloride Carbon Dioxide BUN Creatinine Glucose POC Glucose 132 H 133 H 128 H Calcium Magnesium Direct Bilirubin AST ALT Alkaline Phosphatase Total Creatine Kinase CK-MB (CK-2) CK-MB (CK-2) Rel Index Troponin T C-Reactive Protein Total Protein Albumin Triglycerides Ur Specific [place] Urine WBC (Auto) Miscellaneous Test 04/26/17 04/26/17 04/26/17 05:24 11:28 17:09 WBC RBC Hgb Hct MCV MCH Plt Count Lymph % (Auto) [place] % (Auto) Eos % (Auto) Baso % (Auto) Lymph # Baso # Seg Neutrophils % Lymphocytes % (Manual) Monocytes % (Manual) Nucleated RBC % Seg Neutrophils # Seg Neutrophils # Man Monocytes # (Manual) PT INR Activated Clotting Time POC ABG pH POC ABG pCO2 POC ABG pO2 Sodium Potassium Chloride Carbon Dioxide BUN Creatinine Glucose POC Glucose 132 H 146 H 141 H Calcium Magnesium Direct Bilirubin AST ALT Alkaline Phosphatase Total Creatine Kinase CK-MB (CK-2) CK-MB (CK-2) Rel Index Troponin T C-Reactive Protein Total Protein Albumin Triglycerides Ur Specific [place] Urine WBC (Auto) Miscellaneous Test 04/26/17 04/27/17 04/27/17 23:52 05:40 05:40 WBC RBC 3.22 L Hgb 10.0 L Hct 29.9 L MCV MCH Plt Count Lymph % (Auto) [place] % (Auto) Eos % (Auto) Baso % (Auto) Lymph # Baso # Seg Neutrophils % 76.6 H Lymphocytes % (Manual) Monocytes % (Manual) Nucleated RBC % Seg Neutrophils # Seg Neutrophils # Man Monocytes # (Manual) PT INR Activated Clotting Time POC ABG pH POC ABG pCO2 POC ABG pO2 Sodium Potassium Chloride Carbon Dioxide BUN Creatinine Glucose POC Glucose 140 H Calcium Magnesium Direct Bilirubin AST 66 H ALT 137 H Alkaline Phosphatase 169 H Total Creatine Kinase CK-MB (CK-2) CK-MB (CK-2) Rel Index Troponin T C-Reactive Protein Total Protein 6.2 L Albumin 2.6 L Triglycerides Ur Specific [place] Urine WBC (Auto) Miscellaneous Test 04/27/17 04/27/17 04/27/17 05:40 06:10 11:13 WBC RBC Hgb Hct MCV MCH Plt Count Lymph % (Auto) [place] % (Auto) Eos % (Auto) Baso % (Auto) Lymph # Baso # Seg Neutrophils % Lymphocytes % (Manual) Monocytes % (Manual) Nucleated RBC % Seg Neutrophils # Seg Neutrophils # Man Monocytes # (Manual) PT INR Activated Clotting Time POC ABG pH POC ABG pCO2 POC ABG pO2 Sodium Potassium Chloride Carbon Dioxide BUN Creatinine 0.2 L Glucose 139 H POC Glucose 130 H 151 H Calcium Magnesium Direct Bilirubin AST ALT Alkaline Phosphatase Total Creatine Kinase CK-MB (CK-2) CK-MB (CK-2) Rel Index Troponin T C-Reactive Protein Total Protein Albumin Triglycerides Ur Specific [place] Urine WBC (Auto) Miscellaneous Test 04/27/17 04/27/17 04/28/17 17:37 23:19 05:24 WBC RBC Hgb Hct MCV MCH Plt Count Lymph % (Auto) [place] % (Auto) Eos % (Auto) Baso % (Auto) Lymph # Baso # Seg Neutrophils % Lymphocytes % (Manual) Monocytes % (Manual) Nucleated RBC % Seg Neutrophils # Seg Neutrophils # Man Monocytes # (Manual) PT INR Activated Clotting Time POC ABG pH POC ABG pCO2 POC ABG pO2 Sodium Potassium Chloride Carbon Dioxide BUN Creatinine Glucose POC Glucose 159 H 130 H 132 H Calcium Magnesium Direct Bilirubin AST ALT Alkaline Phosphatase Total Creatine Kinase CK-MB (CK-2) CK-MB (CK-2) Rel Index Troponin T C-Reactive Protein Total Protein Albumin Triglycerides Ur Specific [place] Urine WBC (Auto) Miscellaneous Test 04/28/17 04/28/17 04/28/17 11:15 17:38 23:23 WBC RBC Hgb Hct MCV MCH Plt Count Lymph % (Auto) [place] % (Auto) Eos % (Auto) Baso % (Auto) Lymph # Baso # Seg Neutrophils % Lymphocytes % (Manual) Monocytes % (Manual) Nucleated RBC % Seg Neutrophils # Seg Neutrophils # Man Monocytes # (Manual) PT INR Activated Clotting Time POC ABG pH POC ABG pCO2 POC ABG pO2 Sodium Potassium Chloride Carbon Dioxide BUN Creatinine Glucose POC Glucose 162 H 133 H 138 H Calcium Magnesium Direct Bilirubin AST ALT Alkaline Phosphatase Total Creatine Kinase CK-MB (CK-2) CK-MB (CK-2) Rel Index Troponin T C-Reactive Protein Total Protein Albumin Triglycerides Ur Specific [place] Urine WBC (Auto) Miscellaneous Test 04/29/17 04/29/17 04/29/17 05:15 12:55 17:21 WBC RBC Hgb Hct MCV MCH Plt Count Lymph % (Auto) [place] % (Auto) Eos % (Auto) Baso % (Auto) Lymph # Baso # Seg Neutrophils % Lymphocytes % (Manual) Monocytes % (Manual) Nucleated RBC % Seg Neutrophils # Seg Neutrophils # Man Monocytes # (Manual) PT INR Activated Clotting Time POC ABG pH POC ABG pCO2 POC ABG pO2 Sodium Potassium Chloride Carbon Dioxide BUN Creatinine Glucose POC Glucose 135 H 127 H 138 H Calcium Magnesium Direct Bilirubin AST ALT Alkaline Phosphatase Total Creatine Kinase CK-MB (CK-2) CK-MB (CK-2) Rel Index Troponin T C-Reactive Protein Total Protein Albumin Triglycerides Ur Specific [place] Urine WBC (Auto) Miscellaneous Test 04/29/17 04/30/17 04/30/17 23:52 04:55 12:22 WBC RBC Hgb Hct MCV MCH Plt Count Lymph % (Auto) [place] % (Auto) Eos % (Auto) Baso % (Auto) Lymph # Baso # Seg Neutrophils % Lymphocytes % (Manual) Monocytes % (Manual) Nucleated RBC % Seg Neutrophils # Seg Neutrophils # Man Monocytes # (Manual) PT INR Activated Clotting Time POC ABG pH POC ABG pCO2 POC ABG pO2 Sodium Potassium Chloride Carbon Dioxide BUN Creatinine Glucose POC Glucose 142 H 146 H 132 H Calcium Magnesium Direct Bilirubin AST ALT Alkaline Phosphatase Total Creatine Kinase CK-MB (CK-2) CK-MB (CK-2) Rel Index Troponin T C-Reactive Protein Total Protein Albumin Triglycerides Ur Specific [place] Urine WBC (Auto) Miscellaneous Test 04/30/17 04/30/17 04/30/17 14:25 17:47 18:20 WBC RBC Hgb Hct MCV MCH Plt Count Lymph % (Auto) [place] % (Auto) Eos % (Auto) Baso % (Auto) Lymph # Baso # Seg Neutrophils % Lymphocytes % (Manual) Monocytes % (Manual) Nucleated RBC % Seg Neutrophils # Seg Neutrophils # Man Monocytes # (Manual) PT INR Activated Clotting Time POC ABG pH 7.551 H POC ABG pCO2 32.7 L POC ABG pO2 Sodium Potassium Chloride Carbon Dioxide BUN 21 H Creatinine 0.2 L Glucose 141 H POC Glucose 139 H Calcium Magnesium Direct Bilirubin AST ALT Alkaline Phosphatase Total Creatine Kinase CK-MB (CK-2) CK-MB (CK-2) Rel Index Troponin T C-Reactive Protein Total Protein Albumin Triglycerides Ur Specific [place] Urine WBC (Auto) Miscellaneous Test 05/01/17 05/01/17 05/01/17 01:26 05:30 05:30 WBC RBC 3.49 L Hgb 10.3 L Hct 31.9 L MCV MCH Plt Count Lymph % (Auto) [place] % (Auto) 8.1 H Eos % (Auto) Baso % (Auto) Lymph # Baso # Seg Neutrophils % 71.3 H Lymphocytes % (Manual) Monocytes % (Manual) Nucleated RBC % Seg Neutrophils # Seg Neutrophils # Man Monocytes # (Manual) PT INR Activated Clotting Time POC ABG pH POC ABG pCO2 POC ABG pO2 Sodium 136 L Potassium Chloride 97.6 L Carbon Dioxide BUN Creatinine 0.2 L Glucose 123 H POC Glucose 116 H Calcium Magnesium Direct Bilirubin AST 71 H ALT 125 H Alkaline Phosphatase 158 H Total Creatine Kinase CK-MB (CK-2) CK-MB (CK-2) Rel Index Troponin T C-Reactive Protein Total Protein Albumin 2.6 L Triglycerides Ur Specific [place] Urine WBC (Auto) Miscellaneous Test 05/01/17 05/01/17 05/02/17 11:59 17:23 00:08 WBC RBC Hgb Hct MCV MCH Plt Count Lymph % (Auto) [place] % (Auto) Eos % (Auto) Baso % (Auto) Lymph # Baso # Seg Neutrophils % Lymphocytes % (Manual) Monocytes % (Manual) Nucleated RBC % Seg Neutrophils # Seg Neutrophils # Man Monocytes # (Manual) PT INR Activated Clotting Time POC ABG pH POC ABG pCO2 POC ABG pO2 Sodium Potassium Chloride Carbon Dioxide BUN Creatinine Glucose POC Glucose 118 H 144 H 122 H Calcium Magnesium Direct Bilirubin AST ALT Alkaline Phosphatase Total Creatine Kinase CK-MB (CK-2) CK-MB (CK-2) Rel Index Troponin T C-Reactive Protein Total Protein Albumin Triglycerides Ur Specific [place] Urine WBC (Auto) Miscellaneous Test 05/02/17 05/02/17 05/02/17 05:50 11:21 17:48 WBC RBC Hgb Hct MCV MCH Plt Count Lymph % (Auto) [place] % (Auto) Eos % (Auto) Baso % (Auto) Lymph # Baso # Seg Neutrophils % Lymphocytes % (Manual) Monocytes % (Manual) Nucleated RBC % Seg Neutrophils # Seg Neutrophils # Man Monocytes # (Manual) PT INR Activated Clotting Time POC ABG pH POC ABG pCO2 POC ABG pO2 Sodium Potassium Chloride Carbon Dioxide BUN Creatinine Glucose POC Glucose 120 H 121 H 140 H Calcium Magnesium Direct Bilirubin AST ALT Alkaline Phosphatase Total Creatine Kinase CK-MB (CK-2) CK-MB (CK-2) Rel Index Troponin T C-Reactive Protein Total Protein Albumin Triglycerides Ur Specific [place] Urine WBC (Auto) Miscellaneous Test 05/02/17 05/03/17 05/03/17 23:12 05:35 11:52 WBC RBC Hgb Hct MCV MCH Plt Count Lymph % (Auto) [place] % (Auto) Eos % (Auto) Baso % (Auto) Lymph # Baso # Seg Neutrophils % Lymphocytes % (Manual) Monocytes % (Manual) Nucleated RBC % Seg Neutrophils # Seg Neutrophils # Man Monocytes # (Manual) PT INR Activated Clotting Time POC ABG pH POC ABG pCO2 POC ABG pO2 Sodium Potassium Chloride Carbon Dioxide BUN Creatinine Glucose POC Glucose 128 H 113 H 126 H Calcium Magnesium Direct Bilirubin AST ALT Alkaline Phosphatase Total Creatine Kinase CK-MB (CK-2) CK-MB (CK-2) Rel Index Troponin T C-Reactive Protein Total Protein Albumin Triglycerides Ur Specific [place] Urine WBC (Auto) Miscellaneous Test 05/03/17 05/03/17 05/04/17 17:29 23:26 04:55 WBC RBC Hgb Hct MCV MCH Plt Count Lymph % (Auto) [place] % (Auto) Eos % (Auto) Baso % (Auto) Lymph # Baso # Seg Neutrophils % Lymphocytes % (Manual) Monocytes % (Manual) Nucleated RBC % Seg Neutrophils # Seg Neutrophils # Man Monocytes # (Manual) PT INR Activated Clotting Time POC ABG pH POC ABG pCO2 POC ABG pO2 Sodium Potassium Chloride Carbon Dioxide BUN Creatinine Glucose POC Glucose 141 H 129 H 126 H Calcium Magnesium Direct Bilirubin AST ALT Alkaline Phosphatase Total Creatine Kinase CK-MB (CK-2) CK-MB (CK-2) Rel Index Troponin T C-Reactive Protein Total Protein Albumin Triglycerides Ur Specific [place] Urine WBC (Auto) Miscellaneous Test 05/04/17 05/04/17 05/05/17 12:09 17:46 00:06 WBC RBC Hgb Hct MCV MCH Plt Count Lymph % (Auto) [place] % (Auto) Eos % (Auto) Baso % (Auto) Lymph # Baso # Seg Neutrophils % Lymphocytes % (Manual) Monocytes % (Manual) Nucleated RBC % Seg Neutrophils # Seg Neutrophils # Man Monocytes # (Manual) PT INR Activated Clotting Time POC ABG pH POC ABG pCO2 POC ABG pO2 Sodium Potassium Chloride Carbon Dioxide BUN Creatinine Glucose POC Glucose 125 H 125 H 110 H Calcium Magnesium Direct Bilirubin AST ALT Alkaline Phosphatase Total Creatine Kinase CK-MB (CK-2) CK-MB (CK-2) Rel Index Troponin T C-Reactive Protein Total Protein Albumin Triglycerides Ur Specific [place] Urine WBC (Auto) Miscellaneous Test 05/05/17 05/05/17 05/05/17 05:48 11:41 16:19 WBC RBC Hgb Hct MCV MCH Plt Count Lymph % (Auto) [place] % (Auto) Eos % (Auto) Baso % (Auto) Lymph # Baso # Seg Neutrophils % Lymphocytes % (Manual) Monocytes % (Manual) Nucleated RBC % Seg Neutrophils # Seg Neutrophils # Man Monocytes # (Manual) PT INR Activated Clotting Time POC ABG pH POC ABG pCO2 POC ABG pO2 Sodium Potassium Chloride Carbon Dioxide BUN Creatinine Glucose POC Glucose 124 H 122 H 120 H Calcium Magnesium Direct Bilirubin AST ALT Alkaline Phosphatase Total Creatine Kinase CK-MB (CK-2) CK-MB (CK-2) Rel Index Troponin T C-Reactive Protein Total Protein Albumin Triglycerides Ur Specific [place] Urine WBC (Auto) Miscellaneous Test 05/06/17 05/06/17 00:16 05:47 WBC RBC Hgb Hct MCV MCH Plt Count Lymph % (Auto) [place] % (Auto) Eos % (Auto) Baso % (Auto) Lymph # Baso # Seg Neutrophils % Lymphocytes % (Manual) Monocytes % (Manual) Nucleated RBC % Seg Neutrophils # Seg Neutrophils # Man Monocytes # (Manual) PT INR Activated Clotting Time POC ABG pH POC ABG pCO2 POC ABG pO2 Sodium Potassium Chloride Carbon Dioxide BUN Creatinine Glucose POC Glucose 110 H 142 H Calcium Magnesium Direct Bilirubin AST ALT Alkaline Phosphatase Total Creatine Kinase CK-MB (CK-2) CK-MB (CK-2) Rel Index Troponin T C-Reactive Protein Total Protein Albumin Triglycerides Ur Specific [place] Urine WBC (Auto) Miscellaneous Test
--- NOTE | 2017-05-06 11:40 | Progress Note ---
Assessment and Plan 1. Status post cardiac arrest. 2. Status post acute anterior ST elevation CA. 3. Status post PCI to the left anterior descending artery with bare metal stent deployed. 4. Ischemic cardiomyopathy left ventricular ejection fraction 50-55% 5. Respiratory failure 6. Possible anoxic Encephalopathy Plan. Continue supportive cardiac management. Continue present medication. Subjective Date of service: 05/06/17 Principal diagnosis: coma Interval history: Patient intubated and sedated on mechanical vent Objective Vital Signs Temp Pulse Pulse Pulse Resp BP Pulse Ox 05/06/17 09:36 85 05/06/17 09:00 87 10 L 91/59 05/06/17 08:46 87 22 88/49 100 05/06/17 08:00 99.2 F 88 84 20 92/59 99 05/06/17 07:00 91 H 20 86/55 100 05/06/17 06:00 94 H 21 92/57 100 05/06/17 05:00 95 H 20 97/62 05/06/17 04:15 89 19 101/69 97 05/06/17 04:01 97/59 100 05/06/17 03:43 99.4 F 05/06/17 03:10 85 99/63 96 05/06/17 03:00 85 20 99/63 100 05/06/17 02:25 86 24 97/62 100 05/06/17 02:00 87 20 85/56 95 05/06/17 01:01 87 22 97/61 05/06/17 00:20 86 86 22 97/61 100 05/06/17 00:00 98.7 F 86 20 97/61 05/05/17 23:31 79 19 104/68 98 05/05/17 23:09 05/05/17 23:06 80 104/68 92 05/05/17 23:01 83 22 104/68 94 05/05/17 22:49 84 19 104/68 97 05/05/17 22:31 88 23 104/68 99 05/05/17 22:19 87 05/05/17 22:00 87 23 100 05/05/17 21:45 86 20 99 05/05/17 20:00 98.9 F 81 19 91/55 99 05/05/17 19:14 83 96/59 100 05/05/17 18:24 82 96/59 05/05/17 18:00 82 17 96/59 100 05/05/17 16:00 98.4 F 85 92 H 21 90/51 98 05/05/17 15:12 05/05/17 15:09 88 98 05/05/17 14:00 93 H 19 101/66 97 05/05/17 12:00 97.8 F 92 H 17 92/57 100 05/05/17 11:58 84 Pulse Ox 05/06/17 09:36 05/06/17 09:00 05/06/17 08:46 05/06/17 08:00 05/06/17 07:00 05/06/17 06:00 05/06/17 05:00 05/06/17 04:15 05/06/17 04:01 05/06/17 03:43 05/06/17 03:10 05/06/17 03:00 05/06/17 02:25 05/06/17 02:00 05/06/17 01:01 05/06/17 00:20 05/06/17 00:00 05/05/17 23:31 05/05/17 23:09 94 05/05/17 23:06 05/05/17 23:01 05/05/17 22:49 05/05/17 22:31 05/05/17 22:19 05/05/17 22:00 05/05/17 21:45 05/05/17 20:00 05/05/17 19:14 05/05/17 18:24 05/05/17 18:00 05/05/17 16:00 05/05/17 15:12 97 05/05/17 15:09 05/05/17 14:00 05/05/17 12:00 05/05/17 11:58 - Physical Examination General: Other (unresponsive on the vent) HEENT: Positive: Other (unresponsive, vent) Neck: Positive: trachea midline. Negative: JVD/HJR Cardiac: Positive: Reg Rate and Rhythm, Regular Rate, S3 Lungs: Positive: clear to auscultation, No Wheeze, Rales, Rhonchi Neuro: Positive: Other (unresponsive post VF arrest) Abdomen: Positive: Soft, Active Bowel Sounds Skin: Positive: Clear Extremities: Absent: edema
--- NOTE | 2017-05-06 11:43 | Progress Note ---
Assessment and Plan Assessment and plan: 46 YO Male with No PMH presents to ED for evaluation. Pt is unresponsive and unable to provide history. Pt history taken from ED staff and EMS. Pt was at work today and suddenly passed out around 1050 hrs-which was witnessed by patients coworkers. EMS notified, and upon arrival the patient was found to have V Fib. Pt treated IAW ACLS protocol. The patient was given 3 defibrillations, 2 rounds of epinephrine, Narcan, and a half amp of sodium bicarbonate. Pt found to be in respiratory distress and was intubated and placed on vent support. Cardiology team notified, and patient was taken urgently to quality assurance/r&d lab technician, and admitted to ICU. anoxic brain injury/anoxic encephalopathy/Persistent Vegetative State sp trache and PEG -awaiting insurance/medicare disability application for LTACH or SNF placement Acute Respiratory failure requiring MV >96 hours sp trache, vent dependent Anterior STEMI sp cardiac arrest with V fib Emergency cath protocol called upon arrival, we found 100% occlusion of the LAD in its prox-mid segment. Successful primari PCI-angioplasty and 3.0-3.5mm BM stents deployed. LAD flow restored-excellent result. continue medical management Aspiration PNA due to MRSA/Gram positive Sepsis completed course of abx cardiogenic Shock -now resolved Sepsis/Right lower lobe aspiration pneumonia, most likely due to gram-positive bacteria completed course of abx Hypokalemia repleted, Now resolved Hypernatremia/dehydration/free water deficit resolved with Free water replacement --Severe Protein calorie malnutrition: Peg feeds and nutrition suppliments Had family meeting on 05/05: family wants to continue full code and aggressive rx while they await neuro fup Disposition; possible transfer to LTAC/SNF Very difficult to place, secondary to no payor source The high probability of a clinically significant, sudden or life threatening deterioration of the [Pulmonary, cardiac, renal] system(s) required my full and direct attention, intervention and personal management. The aggregate critical care time was [65] minutes. This time is in addition to time spent performing reported procedures but includes the following: [x] Data Review and interpretation [x] Patient assessment and monitoring of vital signs [x] Documentation [x] Medication orders and management History Interval history: Patient is nonresponsive, lacks most reflexes, had fever, no vomiting, no agitation Hospitalist Physical - Physical exam Narrative exam: General.: Comatose breathes over the vent HEENT: Moist mucous membranes, no LAD, Neck: supple Cardiac: S1-S2 heard Lungs: clear to auscultation bilaterally Abdomen: soft , nontender, nondistended, bowel sounds positive Extremities: no edema clubbing or cyanosis Skin: no rash or lesions Neurologic: Patient is in deep coma, lacks most reflexes, at this time, only has gag reflexs, corneal reflex is absent and decerebrate posturing, pupils are fixed and non reactive, lacks all other reflexes, opens eyes spontaneously - Constitutional Vitals: Temp Pulse Resp BP Pulse Ox 99.2 F 85 10 L 91/59 100 05/06/17 08:00 05/06/17 09:36 05/06/17 09:00 05/06/17 09:00 05/06/17 08:46 General appearance: Present: no acute distress, other (critically ill on vent) Results - Labs CBC & Chem 7: 05/01/17 05:30 05/01/17 05:30 Labs: Laboratory Last Values WBC 7.8 K/mm3 (4.5-11.0) 05/01/17 05:30 RBC 3.49 M/mm3 (3.65-5.03) L 05/01/17 05:30 Hgb 10.3 gm/dl (11.8-15.2) L 05/01/17 05:30 Hct 31.9 % (35.5-45.6) L 05/01/17 05:30 MCV 92 fl (84-94) 05/01/17 05:30 MCH 30 pg (28-32) 05/01/17 05:30 MCHC 32 % (32-34) 05/01/17 05:30 RDW 15.1 % (13.2-15.2) 05/01/17 05:30 Plt Count 280 K/mm3 (140-440) 05/01/17 05:30 Lymph % (Auto) 17.7 % (13.4-35.0) 05/01/17 05:30 [place] % (Auto) 8.1 % (0.0-7.3) H 05/01/17 05:30 Eos % (Auto) 2.5 % (0.0-4.3) 05/01/17 05:30 Baso % (Auto) 0.4 % (0.0-1.8) 05/01/17 05:30 Lymph # 1.4 K/mm3 (1.2-5.4) 05/01/17 05:30 [place] # 0.6 K/mm3 (0.0-0.8) 05/01/17 05:30 Eos # 0.2 K/mm3 (0.0-0.4) 05/01/17 05:30 Baso # 0.0 K/mm3 (0.0-0.1) 05/01/17 05:30 Add Manual Diff Complete 03/30/17 03:50 Total Counted 100 03/30/17 03:50 Seg Neutrophils % 71.3 % (40.0-70.0) H 05/01/17 05:30 Seg Neuts % (Manual) 65.0 % (40.0-70.0) 03/30/17 03:50 Band Neutrophils % 17.0 % 03/30/17 03:50 Lymphocytes % (Manual) 7.0 % (13.4-35.0) L 03/30/17 03:50 Reactive Lymphs % (Man) 0 % 03/30/17 03:50 Monocytes % (Manual) 7.0 % (0.0-7.3) 03/30/17 03:50 Eosinophils % (Manual) 0 % (0.0-4.3) 03/30/17 03:50 Basophils % (Manual) 0 % (0.0-1.8) 03/30/17 03:50 Metamyelocytes % 4.0 % 03/30/17 03:50 Myelocytes % 0 % 03/30/17 03:50 Promyelocytes % 0 % 03/30/17 03:50 Blast Cells % 0 % 03/30/17 03:50 Nucleated RBC % Not Reportable 03/30/17 03:50 Seg Neutrophils # 5.6 K/mm3 (1.8-7.7) 05/01/17 05:30 Seg Neutrophils # Man 12.7 K/mm3 (1.8-7.7) H 03/30/17 03:50 Band Neutrophils # 3.3 K/mm3 03/30/17 03:50 Lymphocytes # (Manual) 1.4 K/mm3 (1.2-5.4) 03/30/17 03:50 Abs React Lymphs (Man) 0.0 K/mm3 03/30/17 03:50 Monocytes # (Manual) 1.4 K/mm3 (0.0-0.8) H 03/30/17 03:50 Eosinophils # (Manual) 0.0 K/mm3 (0.0-0.4) 03/30/17 03:50 Basophils # (Manual) 0.0 K/mm3 (0.0-0.1) 03/30/17 03:50 Metamyelocytes # 0.8 K/mm3 03/30/17 03:50 Myelocytes # 0.0 K/mm3 03/30/17 03:50 Promyelocytes # 0.0 K/mm3 03/30/17 03:50 Blast Cells # 0.0 K/mm3 03/30/17 03:50 WBC Morphology Not Reportable 03/30/17 03:50 Hypersegmented Neuts Not Reportable 03/30/17 03:50 Hyposegmented Neuts Not Reportable 03/30/17 03:50 Hypogranular Neuts Not Reportable 03/30/17 03:50 Smudge Cells Not Reportable 03/30/17 03:50 Toxic Granulation Not Reportable 03/30/17 03:50 Toxic Vacuolation Not Reportable 03/30/17 03:50 Dohle Bodies Not Reportable 03/30/17 03:50 Pelger-Huet Anomaly Not Reportable 03/30/17 03:50 Sherry Rods Not Reportable 03/30/17 03:50 Platelet Estimate Appears normal 03/30/17 03:50 Clumped Platelets Not Reportable 03/30/17 03:50 Plt Clumps, EDTA Not Reportable 03/30/17 03:50 Large Platelets Not Reportable 03/30/17 03:50 Giant Platelets Not Reportable 03/30/17 03:50 Platelet Satelliting Not Reportable 03/30/17 03:50 Plt Morphology Comment Not Reportable 03/30/17 03:50 RBC Morphology Not Reportable 03/30/17 03:50 Dimorphic RBCs Not Reportable 03/30/17 03:50 Polychromasia Not Reportable 03/30/17 03:50 Hypochromasia Not Reportable 03/30/17 03:50 Poikilocytosis Not Reportable 03/30/17 03:50 Anisocytosis Few 03/30/17 03:50 Microcytosis Not Reportable 03/30/17 03:50 Macrocytosis Not Reportable 03/30/17 03:50 Spherocytes Not Reportable 03/30/17 03:50 Pappenheimer Bodies Not Reportable 03/30/17 03:50 Sickle Cells Not Reportable 03/30/17 03:50 Target Cells Not Reportable 03/30/17 03:50 Tear Drop Cells Not Reportable 03/30/17 03:50 Ovalocytes Not Reportable 03/30/17 03:50 Helmet Cells Not Reportable 03/30/17 03:50 [place] Bodies Not Reportable 03/30/17 03:50 [place] Rings Not Reportable 03/30/17 03:50 Nusrat Cells Not Reportable 03/30/17 03:50 Bite Cells Not Reportable 03/30/17 03:50 Crenated Cell Not Reportable 03/30/17 03:50 Elliptocytes Not Reportable 03/30/17 03:50 Acanthocytes (Spur) Not Reportable 03/30/17 03:50 Rouleaux Not Reportable 03/30/17 03:50 Hemoglobin C Crystals Not Reportable 03/30/17 03:50 Schistocytes Not Reportable 03/30/17 03:50 Malaria parasites Not Reportable 03/30/17 03:50 Jermaine Bodies Not Reportable 03/30/17 03:50 Hem Pathologist Commnt No 03/30/17 03:50 PT 14.9 Sec. (12.2-14.9) 04/10/17 04:16 INR 1.11 (0.87-1.13) 04/10/17 04:16 APTT 27.8 Sec. (24.2-36.6) 04/10/17 04:16 Activated Clotting Time 92 (74-137) 03/29/17 17:47 POC ABG pH 7.551 (7.35-7.45) H 04/30/17 18:20 POC ABG pCO2 32.7 (35-45) L 04/30/17 18:20 POC ABG pO2 101 (80-105) 04/30/17 18:20 POC ABG HCO3 28.7 04/30/17 18:20 POC ABG Total CO2 30 04/30/17 18:20 POC ABG O2 Sat 99 04/30/17 18:20 POC ABG Base Excess 6 04/30/17 18:20 FiO2 30 % 04/30/17 18:20 Sodium 136 mmol/L (137-145) L 05/01/17 05:30 Potassium 3.9 mmol/L (3.6-5.0) 05/01/17 05:30 Chloride 97.6 mmol/L (98-107) L 05/01/17 05:30 Carbon Dioxide 25 mmol/L (22-30) 05/01/17 05:30 Anion Gap 17 mmol/L 05/01/17 05:30 BUN 16 mg/dL (9-20) 05/01/17 05:30 Creatinine 0.2 mg/dL (0.8-1.5) L 05/01/17 05:30 Estimated GFR > 60 ml/min 05/01/17 05:30 BUN/Creatinine Ratio 80 % 05/01/17 05:30 Glucose 123 mg/dL (75-100) H 05/01/17 05:30 POC Glucose 142 (70-105) H 05/06/17 05:47 Calcium 8.9 mg/dL (8.4-10.2) 05/01/17 05:30 Phosphorus 3.50 mg/dL (2.5-4.5) 04/13/17 04:45 Magnesium 1.80 mg/dL (1.7-2.3) 05/01/17 05:30 Total Bilirubin 0.60 mg/dL (0.1-1.2) 05/01/17 05:30 Direct Bilirubin < 0.2 mg/dL (0-0.2) 04/27/17 05:40 Indirect Bilirubin 0.3 mg/dL 04/25/17 04:51 AST 71 units/L (5-40) H 05/01/17 05:30 ALT 125 units/L (7-56) H 05/01/17 05:30 Alkaline Phosphatase 158 units/L (35-129) H 05/01/17 05:30 Total Creatine Kinase 1404 units/L (55-170) H 04/12/17 21:36 CK-MB (CK-2) 8.0 ng/mL (0.0-4.0) H 04/12/17 21:36 CK-MB (CK-2) Rel Index 0.5 (0-4) 04/12/17 21:36 Troponin T 0.767 ng/mL (0.00-0.029) H* 04/12/17 21:36 C-Reactive Protein 21.80 mg/dL (0.00-1.30) H 03/30/17 16:04 Total Protein 6.7 g/dL (6.3-8.2) 05/01/17 05:30 Albumin 2.6 g/dL (3.9-5) L 05/01/17 05:30 Albumin/Globulin Ratio 0.6 % 05/01/17 05:30 Triglycerides 151 mg/dL (2-149) H 04/01/17 04:29 Cholesterol 164 mg/dL (50-199) 03/29/17 19:52 LDL Cholesterol Direct 81 mg/dL (50-130) 03/29/17 19:52 HDL Cholesterol 44 mg/dL (40-59) 03/29/17 19:52 Cholesterol/HDL Ratio 3.72 % 03/29/17 19:52 Urine Color [place] (Yellow) 04/21/17 22:00 Urine Turbidity Clear (Clear) 04/21/17 22:00 Urine pH 5.0 (5.0-7.0) 04/21/17 22:00 Ur Specific [place] 1.029 (1.003-1.030) 04/21/17 22:00 Urine Protein 30 mg/dl mg/dL (Negative) 04/21/17 22:00 Urine Glucose (UA) Neg mg/dL (Negative) 04/21/17 22:00 Urine Ketones Neg mg/dL (Negative) 04/21/17 22:00 Urine Blood Mod (Negative) 04/21/17 22:00 Urine Nitrite Neg (Negative) 04/21/17 22:00 Urine Bilirubin Neg (Negative) 04/21/17 22:00 Urine Urobilinogen 4.0 mg/dL (<2.0) 04/21/17 22:00 Ur Leukocyte Esterase Neg (Negative) 04/21/17 22:00 Urine WBC (Auto) 10.0 /HPF (0.0-6.0) H 04/21/17 22:00 Urine RBC (Auto) 44.0 /HPF (0.0-6.0) 04/21/17 22:00 U Epithel Cells (Auto) < 1.0 /HPF (0-13.0) 04/21/17 22:00 Amorphous Crystals 1+ 03/30/17 09:45 Urine Mucus 3+ /HPF 04/21/17 22:00 Urine Opiates Screen Presumptive negative 03/30/17 09:45 Urine Methadone Screen Presumptive negative 03/30/17 09:45 Ur Barbiturates Screen Presumptive negative 03/30/17 09:45 Ur Phencyclidine Scrn Presumptive negative 03/30/17 09:45 Ur Amphetamines Screen Presumptive positive 03/30/17 09:45 U Benzodiazepines Scrn Presumptive positive 03/30/17 09:45 Urine Cocaine Screen Presumptive negative 03/30/17 09:45 U Marijuana (THC) Screen Presumptive negative 03/30/17 09:45 Drugs of Abuse Note Disclamer 03/30/17 09:45 Miscellaneous Test Flexitest 1 H 04/25/17 07:07 Blood Type O POSITIVE 03/29/17 11:35 Antibody Screen Negative 03/29/17 11:35
[2017-05-06] MEDS: HEPARIN SUB-Q SCH ×2 (12:09→23:02)
[2017-05-06] MEDS: PLAVIX PO SCH (12:10)
[2017-05-06] MEDS: CORDARONE PO SCH ×2 (12:13→23:01)
[2017-05-06] MEDS: ZESTRIL PO SCH (12:13)
[2017-05-06] MEDS: PROTONIX FEEDTUBE SCH (12:14)
[2017-05-06] MEDS: ASPIRIN PO SCH (12:17)
[2017-05-06] MEDS ORDERED: AMBIEN PO PRN (13:05)
[2017-05-07] MEDS: NOVOLOG SUB-Q SCH ×2 (00:08→18:11)
[2017-05-07] MEDS: LOPRESSOR PO SCH ×4 (00:08→22:27)
--- NOTE | 2017-05-07 07:30 | Progress Note ---
Assessment and Plan Out of hospital Vfib arrest Hypoxic encephalopathy. No major changes clinically. Appreciate neurology input Preliminary report-[facility] PRELIMINARY REPORT; ACUTE DVT NOTED IN RUE SUBCL V ( NON-OCCL) AND AXILLARY V. ACUTE SVT NOTED IN RUE BASILIC VEIN STEMI-on Eliquis, Plavix, aspirin Prior x-rays with residual infiltrate s/p LHC with stent placement Sputum culture positive for MRSA. Prior infiltrate RLL . No fever, off antibiotics Recommendations Continue PSV/CPAP trials- currently tolerating little, due to apneas, related to hypoventilation events Trach care suction Follow-up, monitor for neurological changes Critical care time with a 31 minutes of [id number] evaluation and coordination of care Subjective Date of service: 05/07/17 Principal diagnosis: coma,ARV,s/p arrest Interval history: N/a Objective Vital Signs - 12hr 05/06/17 05/06/17 05/06/17 19:43 20:00 21:00 Temperature 98.8 F Pulse Rate 82 Pulse Rate [ 86 From Monitor] Pulse Rate [ 86 None] Respiratory 20 24 Rate Blood Pressure 83/50 107/69 O2 Sat by Pulse 99 100 Oximetry O2 Sat by Pulse Oximetry [ Assessment] 05/06/17 05/06/17 05/06/17 21:20 22:00 22:58 Temperature Pulse Rate 93 H 88 Pulse Rate [ From Monitor] Pulse Rate [ 87 None] Respiratory 23 16 22 Rate Blood Pressure 112/75 112/73 101/64 O2 Sat by Pulse 100 100 100 Oximetry O2 Sat by Pulse Oximetry [ Assessment] 05/06/17 05/06/17 05/07/17 23:00 23:02 00:00 Temperature 98.9 F Pulse Rate 88 86 93 H Pulse Rate [ From Monitor] Pulse Rate [ None] Respiratory 22 27 H Rate Blood Pressure 103/67 98/56 O2 Sat by Pulse 100 100 Oximetry O2 Sat by Pulse Oximetry [ Assessment] 05/07/17 05/07/17 05/07/17 00:08 01:00 01:31 Temperature Pulse Rate 85 82 Pulse Rate [ From Monitor] Pulse Rate [ None] Respiratory 18 Rate Blood Pressure 98/56 87/54 87/54 O2 Sat by Pulse 100 100 Oximetry O2 Sat by Pulse Oximetry [ Assessment] 05/07/17 05/07/17 05/07/17 01:33 02:00 03:00 Temperature Pulse Rate 81 79 Pulse Rate [ From Monitor] Pulse Rate [ None] Respiratory 19 20 Rate Blood Pressure 98/63 94/57 O2 Sat by Pulse 99 Oximetry O2 Sat by Pulse 100 Oximetry [ Assessment] 05/07/17 05/07/17 05/07/17 04:00 04:30 04:32 Temperature 99.0 F Pulse Rate 77 84 Pulse Rate [ From Monitor] Pulse Rate [ None] Respiratory 17 Rate Blood Pressure 85/50 85/50 O2 Sat by Pulse 100 100 Oximetry O2 Sat by Pulse Oximetry [ Assessment] 05/07/17 05/07/17 05/07/17 05:00 05:30 06:00 Temperature Pulse Rate 83 85 89 Pulse Rate [ From Monitor] Pulse Rate [ None] Respiratory 20 20 13 Rate Blood Pressure 96/62 96/62 96/62 O2 Sat by Pulse 100 100 100 Oximetry O2 Sat by Pulse Oximetry [ Assessment] 05/07/17 06:30 Temperature Pulse Rate 90 Pulse Rate [ From Monitor] Pulse Rate [ None] Respiratory 19 Rate Blood Pressure 104/66 O2 Sat by Pulse 100 Oximetry O2 Sat by Pulse Oximetry [ Assessment] Constitutional: no acute distress, other (awake on vent) Eyes: non-icteric ENT: oropharynx moist Neck: supple, no JVD, other (tracheotomy ) Effort: normal Ascultation: Bilateral: clear, diminished breath sounds Cardiovascular: regular rate and rhythm Gastrointestinal: normoactive bowel sounds, soft, non-tender, non-distended Integumentary: normal Extremities: no cyanosis, no edema, pink and warm Neurologic: unable to assess Psychiatric: other (eyes open spontaneously but does not follow any voice commands, otherwise nonresponsive except for pain) CBC and BMP: 05/01/17 05:30 05/01/17 05:30 ABG, PT/INR, D-dimer: ABG POC ABG pH 7.551 (7.35-7.45) H 04/30/17 18:20 POC ABG pCO2 32.7 (35-45) L 04/30/17 18:20 POC ABG pO2 101 (80-105) 04/30/17 18:20 POC ABG HCO3 28.7 04/30/17 18:20 POC ABG Total CO2 30 04/30/17 18:20 POC ABG O2 Sat 99 04/30/17 18:20 PT/INR, D-dimer PT 14.9 Sec. (12.2-14.9) 04/10/17 04:16 INR 1.11 (0.87-1.13) 04/10/17 04:16 Abnormal lab findings: Abnormal Labs 03/29/17 03/29/17 03/29/17 11:35 11:35 11:40 WBC RBC Hgb Hct MCV 98 H MCH 33 H Plt Count Lymph % (Auto) [place] % (Auto) Eos % (Auto) Baso % (Auto) Lymph # Baso # Seg Neutrophils % Lymphocytes % (Manual) Monocytes % (Manual) 9.0 H Nucleated RBC % 1.0 H Seg Neutrophils # Seg Neutrophils # Man Monocytes # (Manual) 0.9 H PT 15.8 H INR 1.20 H Activated Clotting Time POC ABG pH POC ABG pCO2 POC ABG pO2 Sodium Potassium 2.7 L* Chloride 95.3 L Carbon Dioxide 17 L BUN Creatinine Glucose 435 H POC Glucose Calcium Magnesium Direct Bilirubin AST ALT Alkaline Phosphatase Total Creatine Kinase CK-MB (CK-2) CK-MB (CK-2) Rel Index Troponin T C-Reactive Protein Total Protein 6.1 L Albumin 3.5 L Triglycerides Ur Specific [place] Urine WBC (Auto) Miscellaneous Test 03/29/17 03/29/17 03/29/17 12:34 13:10 13:25 WBC RBC Hgb Hct MCV MCH Plt Count Lymph % (Auto) [place] % (Auto) Eos % (Auto) Baso % (Auto) Lymph # Baso # Seg Neutrophils % Lymphocytes % (Manual) Monocytes % (Manual) Nucleated RBC % Seg Neutrophils # Seg Neutrophils # Man Monocytes # (Manual) PT INR Activated Clotting Time 142 H 169 H 175 H POC ABG pH POC ABG pCO2 POC ABG pO2 Sodium Potassium Chloride Carbon Dioxide BUN Creatinine Glucose POC Glucose Calcium Magnesium Direct Bilirubin AST ALT Alkaline Phosphatase Total Creatine Kinase CK-MB (CK-2) CK-MB (CK-2) Rel Index Troponin T C-Reactive Protein Total Protein Albumin Triglycerides Ur Specific [place] Urine WBC (Auto) Miscellaneous Test 03/29/17 03/29/17 03/29/17 14:50 15:18 19:52 WBC RBC Hgb Hct MCV MCH Plt Count Lymph % (Auto) [place] % (Auto) Eos % (Auto) Baso % (Auto) Lymph # Baso # Seg Neutrophils % Lymphocytes % (Manual) Monocytes % (Manual) Nucleated RBC % Seg Neutrophils # Seg Neutrophils # Man Monocytes # (Manual) PT INR Activated Clotting Time 175 H POC ABG pH 7.293 L POC ABG pCO2 POC ABG pO2 602 H Sodium Potassium Chloride Carbon Dioxide BUN Creatinine Glucose POC Glucose Calcium Magnesium Direct Bilirubin AST ALT Alkaline Phosphatase Total Creatine Kinase 7263 H CK-MB (CK-2) > 300.0 H CK-MB (CK-2) Rel Index 4.1 H Troponin T 8.080 H* D C-Reactive Protein Total Protein Albumin Triglycerides 195 H Ur Specific [place] Urine WBC (Auto) Miscellaneous Test 03/30/17 03/30/17 03/30/17 03:50 03:50 06:19 WBC 19.5 H RBC Hgb Hct MCV MCH Plt Count Lymph % (Auto) [place] % (Auto) Eos % (Auto) Baso % (Auto) Lymph # Baso # Seg Neutrophils % Lymphocytes % (Manual) 7.0 L Monocytes % (Manual) Nucleated RBC % Seg Neutrophils # Seg Neutrophils # Man 12.7 H Monocytes # (Manual) 1.4 H PT INR Activated Clotting Time POC ABG pH POC ABG pCO2 28.2 L POC ABG pO2 108 H Sodium Potassium Chloride 108.9 H Carbon Dioxide 15 L BUN 25 H Creatinine Glucose 158 H POC Glucose Calcium 8.1 L Magnesium Direct Bilirubin AST ALT Alkaline Phosphatase Total Creatine Kinase 7963 H CK-MB (CK-2) > 300.0 H CK-MB (CK-2) Rel Index Troponin T 6.850 H* C-Reactive Protein Total Protein Albumin Triglycerides Ur Specific [place] Urine WBC (Auto) Miscellaneous Test 03/30/17 03/30/17 03/31/17 09:45 16:04 02:19 WBC RBC Hgb Hct MCV MCH Plt Count Lymph % (Auto) [place] % (Auto) Eos % (Auto) Baso % (Auto) Lymph # Baso # Seg Neutrophils % Lymphocytes % (Manual) Monocytes % (Manual) Nucleated RBC % Seg Neutrophils # Seg Neutrophils # Man Monocytes # (Manual) PT INR Activated Clotting Time POC ABG pH POC ABG pCO2 POC ABG pO2 Sodium Potassium Chloride Carbon Dioxide BUN Creatinine Glucose POC Glucose 137 H Calcium Magnesium Direct Bilirubin AST ALT Alkaline Phosphatase Total Creatine Kinase CK-MB (CK-2) CK-MB (CK-2) Rel Index Troponin T C-Reactive Protein 21.80 H Total Protein Albumin Triglycerides Ur Specific [place] 1.031 H Urine WBC (Auto) Miscellaneous Test 03/31/17 03/31/17 03/31/17 03:57 06:54 09:22 WBC RBC Hgb Hct MCV MCH Plt Count Lymph % (Auto) [place] % (Auto) Eos % (Auto) Baso % (Auto) Lymph # Baso # Seg Neutrophils % Lymphocytes % (Manual) Monocytes % (Manual) Nucleated RBC % Seg Neutrophils # Seg Neutrophils # Man Monocytes # (Manual) PT INR Activated Clotting Time POC ABG pH 7.475 H POC ABG pCO2 25.4 L POC ABG pO2 62 L Sodium Potassium Chloride Carbon Dioxide 19 L BUN 22 H Creatinine 0.6 L Glucose 148 H POC Glucose 143 H Calcium 8.3 L Magnesium Direct Bilirubin AST ALT Alkaline Phosphatase Total Creatine Kinase CK-MB (CK-2) CK-MB (CK-2) Rel Index Troponin T C-Reactive Protein Total Protein Albumin Triglycerides Ur Specific [place] Urine WBC (Auto) Miscellaneous Test 03/31/17 03/31/17 03/31/17 11:40 17:47 23:38 WBC RBC Hgb Hct MCV MCH Plt Count Lymph % (Auto) [place] % (Auto) Eos % (Auto) Baso % (Auto) Lymph # Baso # Seg Neutrophils % Lymphocytes % (Manual) Monocytes % (Manual) Nucleated RBC % Seg Neutrophils # Seg Neutrophils # Man Monocytes # (Manual) PT INR Activated Clotting Time POC ABG pH POC ABG pCO2 POC ABG pO2 Sodium Potassium Chloride Carbon Dioxide BUN Creatinine Glucose POC Glucose 127 H 137 H 148 H Calcium Magnesium Direct Bilirubin AST ALT Alkaline Phosphatase Total Creatine Kinase CK-MB (CK-2) CK-MB (CK-2) Rel Index Troponin T C-Reactive Protein Total Protein Albumin Triglycerides Ur Specific [place] Urine WBC (Auto) Miscellaneous Test 04/01/17 04/01/17 04/01/17 04:29 05:01 11:54 WBC RBC Hgb Hct MCV MCH Plt Count Lymph % (Auto) [place] % (Auto) Eos % (Auto) Baso % (Auto) Lymph # Baso # Seg Neutrophils % Lymphocytes % (Manual) Monocytes % (Manual) Nucleated RBC % Seg Neutrophils # Seg Neutrophils # Man Monocytes # (Manual) PT INR Activated Clotting Time POC ABG pH 7.513 H POC ABG pCO2 22.1 L POC ABG pO2 64 L Sodium Potassium Chloride Carbon Dioxide BUN Creatinine Glucose POC Glucose 121 H Calcium Magnesium Direct Bilirubin AST ALT Alkaline Phosphatase Total Creatine Kinase CK-MB (CK-2) CK-MB (CK-2) Rel Index Troponin T C-Reactive Protein Total Protein Albumin Triglycerides 151 H Ur Specific [place] Urine WBC (Auto) Miscellaneous Test 04/01/17 04/02/17 04/02/17 18:17 00:11 04:52 WBC RBC Hgb Hct MCV MCH Plt Count Lymph % (Auto) [place] % (Auto) Eos % (Auto) Baso % (Auto) Lymph # Baso # Seg Neutrophils % Lymphocytes % (Manual) Monocytes % (Manual) Nucleated RBC % Seg Neutrophils # Seg Neutrophils # Man Monocytes # (Manual) PT INR Activated Clotting Time POC ABG pH 7.524 H POC ABG pCO2 25.5 L POC ABG pO2 66 L Sodium Potassium Chloride Carbon Dioxide BUN Creatinine Glucose POC Glucose 117 H 122 H Calcium Magnesium Direct Bilirubin AST ALT Alkaline Phosphatase Total Creatine Kinase CK-MB (CK-2) CK-MB (CK-2) Rel Index Troponin T C-Reactive Protein Total Protein Albumin Triglycerides Ur Specific [place] Urine WBC (Auto) Miscellaneous Test 04/02/17 04/02/17 04/02/17 05:18 10:41 12:19 WBC RBC Hgb Hct MCV MCH Plt Count Lymph % (Auto) [place] % (Auto) Eos % (Auto) Baso % (Auto) Lymph # Baso # Seg Neutrophils % Lymphocytes % (Manual) Monocytes % (Manual) Nucleated RBC % Seg Neutrophils # Seg Neutrophils # Man Monocytes # (Manual) PT INR Activated Clotting Time POC ABG pH 7.534 H POC ABG pCO2 27.4 L POC ABG pO2 Sodium Potassium Chloride Carbon Dioxide BUN Creatinine Glucose POC Glucose 132 H 129 H Calcium Magnesium Direct Bilirubin AST ALT Alkaline Phosphatase Total Creatine Kinase CK-MB (CK-2) CK-MB (CK-2) Rel Index Troponin T C-Reactive Protein Total Protein Albumin Triglycerides Ur Specific [place] Urine WBC (Auto) Miscellaneous Test 04/02/17 04/03/17 04/03/17 18:05 00:08 05:09 WBC RBC Hgb Hct MCV MCH Plt Count Lymph % (Auto) [place] % (Auto) Eos % (Auto) Baso % (Auto) Lymph # Baso # Seg Neutrophils % Lymphocytes % (Manual) Monocytes % (Manual) Nucleated RBC % Seg Neutrophils # Seg Neutrophils # Man Monocytes # (Manual) PT INR Activated Clotting Time POC ABG pH 7.455 H POC ABG pCO2 33.2 L POC ABG pO2 120 H Sodium Potassium Chloride Carbon Dioxide BUN Creatinine Glucose POC Glucose 136 H 128 H Calcium Magnesium Direct Bilirubin AST ALT Alkaline Phosphatase Total Creatine Kinase CK-MB (CK-2) CK-MB (CK-2) Rel Index Troponin T C-Reactive Protein Total Protein Albumin Triglycerides Ur Specific [place] Urine WBC (Auto) Miscellaneous Test 04/03/17 04/03/17 04/03/17 06:32 11:54 12:16 WBC 11.9 H RBC Hgb Hct MCV MCH Plt Count 125 L Lymph % (Auto) 4.8 L [place] % (Auto) Eos % (Auto) Baso % (Auto) Lymph # 0.6 L Baso # Seg Neutrophils % 86.7 H Lymphocytes % (Manual) Monocytes % (Manual) Nucleated RBC % Seg Neutrophils # 10.3 H Seg Neutrophils # Man Monocytes # (Manual) PT INR Activated Clotting Time POC ABG pH POC ABG pCO2 POC ABG pO2 Sodium Potassium Chloride Carbon Dioxide BUN Creatinine Glucose POC Glucose 138 H 143 H Calcium Magnesium Direct Bilirubin AST ALT Alkaline Phosphatase Total Creatine Kinase CK-MB (CK-2) CK-MB (CK-2) Rel Index Troponin T C-Reactive Protein Total Protein Albumin Triglycerides Ur Specific [place] Urine WBC (Auto) Miscellaneous Test 04/03/17 04/03/17 04/04/17 17:33 23:59 04:34 WBC RBC Hgb Hct MCV MCH Plt Count Lymph % (Auto) [place] % (Auto) Eos % (Auto) Baso % (Auto) Lymph # Baso # Seg Neutrophils % Lymphocytes % (Manual) Monocytes % (Manual) Nucleated RBC % Seg Neutrophils # Seg Neutrophils # Man Monocytes # (Manual) PT INR Activated Clotting Time POC ABG pH 7.457 H POC ABG pCO2 29.8 L POC ABG pO2 76 L Sodium Potassium Chloride Carbon Dioxide BUN Creatinine Glucose POC Glucose 130 H 155 H Calcium Magnesium Direct Bilirubin AST ALT Alkaline Phosphatase Total Creatine Kinase CK-MB (CK-2) CK-MB (CK-2) Rel Index Troponin T C-Reactive Protein Total Protein Albumin Triglycerides Ur Specific [place] Urine WBC (Auto) Miscellaneous Test 04/04/17 04/04/17 04/04/17 05:27 12:22 18:18 WBC RBC Hgb Hct MCV MCH Plt Count Lymph % (Auto) [place] % (Auto) Eos % (Auto) Baso % (Auto) Lymph # Baso # Seg Neutrophils % Lymphocytes % (Manual) Monocytes % (Manual) Nucleated RBC % Seg Neutrophils # Seg Neutrophils # Man Monocytes # (Manual) PT INR Activated Clotting Time POC ABG pH POC ABG pCO2 POC ABG pO2 Sodium Potassium Chloride Carbon Dioxide BUN Creatinine Glucose POC Glucose 164 H 146 H 130 H Calcium Magnesium Direct Bilirubin AST ALT Alkaline Phosphatase Total Creatine Kinase CK-MB (CK-2) CK-MB (CK-2) Rel Index Troponin T C-Reactive Protein Total Protein Albumin Triglycerides Ur Specific [place] Urine WBC (Auto) Miscellaneous Test 04/05/17 04/05/17 04/05/17 04:43 05:28 11:36 WBC RBC Hgb Hct MCV MCH Plt Count Lymph % (Auto) [place] % (Auto) Eos % (Auto) Baso % (Auto) Lymph # Baso # Seg Neutrophils % Lymphocytes % (Manual) Monocytes % (Manual) Nucleated RBC % Seg Neutrophils # Seg Neutrophils # Man Monocytes # (Manual) PT INR Activated Clotting Time POC ABG pH 7.479 H POC ABG pCO2 33.5 L POC ABG pO2 76 L Sodium Potassium Chloride Carbon Dioxide BUN Creatinine Glucose POC Glucose 145 H 136 H Calcium Magnesium Direct Bilirubin AST ALT Alkaline Phosphatase Total Creatine Kinase CK-MB (CK-2) CK-MB (CK-2) Rel Index Troponin T C-Reactive Protein Total Protein Albumin Triglycerides Ur Specific [place] Urine WBC (Auto) Miscellaneous Test 04/05/17 04/06/17 04/06/17 17:58 00:16 05:26 WBC RBC Hgb Hct MCV MCH Plt Count Lymph % (Auto) [place] % (Auto) Eos % (Auto) Baso % (Auto) Lymph # Baso # Seg Neutrophils % Lymphocytes % (Manual) Monocytes % (Manual) Nucleated RBC % Seg Neutrophils # Seg Neutrophils # Man Monocytes # (Manual) PT INR Activated Clotting Time POC ABG pH POC ABG pCO2 POC ABG pO2 Sodium Potassium Chloride Carbon Dioxide BUN Creatinine Glucose POC Glucose 130 H 159 H 146 H Calcium Magnesium Direct Bilirubin AST ALT Alkaline Phosphatase Total Creatine Kinase CK-MB (CK-2) CK-MB (CK-2) Rel Index Troponin T C-Reactive Protein Total Protein Albumin Triglycerides Ur Specific [place] Urine WBC (Auto) Miscellaneous Test 01/02/1104/06/17 04/07/17 13:11 16:54 11:45 WBC RBC Hgb Hct MCV MCH Plt Count Lymph % (Auto) [place] % (Auto) Eos % (Auto) Baso % (Auto) Lymph # Baso # Seg Neutrophils % Lymphocytes % (Manual) Monocytes % (Manual) Nucleated RBC % Seg Neutrophils # Seg Neutrophils # Man Monocytes # (Manual) PT INR Activated Clotting Time POC ABG pH 7.517 H POC ABG pCO2 32.1 L POC ABG pO2 Sodium Potassium Chloride Carbon Dioxide BUN Creatinine Glucose POC Glucose 132 H 123 H Calcium Magnesium Direct Bilirubin AST ALT Alkaline Phosphatase Total Creatine Kinase CK-MB (CK-2) CK-MB (CK-2) Rel Index Troponin T C-Reactive Protein Total Protein Albumin Triglycerides Ur Specific [place] Urine WBC (Auto) Miscellaneous Test 04/07/17 04/07/17 04/07/17 12:51 17:40 23:55 WBC RBC Hgb Hct MCV MCH Plt Count Lymph % (Auto) [place] % (Auto) Eos % (Auto) Baso % (Auto) Lymph # Baso # Seg Neutrophils % Lymphocytes % (Manual) Monocytes % (Manual) Nucleated RBC % Seg Neutrophils # Seg Neutrophils # Man Monocytes # (Manual) PT INR Activated Clotting Time POC ABG pH POC ABG pCO2 POC ABG pO2 Sodium Potassium Chloride Carbon Dioxide BUN Creatinine Glucose POC Glucose 138 H 154 H 143 H Calcium Magnesium Direct Bilirubin AST ALT Alkaline Phosphatase Total Creatine Kinase CK-MB (CK-2) CK-MB (CK-2) Rel Index Troponin T C-Reactive Protein Total Protein Albumin Triglycerides Ur Specific [place] Urine WBC (Auto) Miscellaneous Test 04/08/17 04/08/17 04/08/17 05:27 11:14 17:44 WBC RBC Hgb Hct MCV MCH Plt Count Lymph % (Auto) [place] % (Auto) Eos % (Auto) Baso % (Auto) Lymph # Baso # Seg Neutrophils % Lymphocytes % (Manual) Monocytes % (Manual) Nucleated RBC % Seg Neutrophils # Seg Neutrophils # Man Monocytes # (Manual) PT INR Activated Clotting Time POC ABG pH POC ABG pCO2 POC ABG pO2 Sodium Potassium Chloride Carbon Dioxide BUN Creatinine Glucose POC Glucose 142 H 153 H 129 H Calcium Magnesium Direct Bilirubin AST ALT Alkaline Phosphatase Total Creatine Kinase CK-MB (CK-2) CK-MB (CK-2) Rel Index Troponin T C-Reactive Protein Total Protein Albumin Triglycerides Ur Specific [place] Urine WBC (Auto) Miscellaneous Test 04/09/17 04/09/17 04/09/17 08:20 11:21 17:37 WBC RBC Hgb Hct MCV MCH Plt Count Lymph % (Auto) [place] % (Auto) Eos % (Auto) Baso % (Auto) Lymph # Baso # Seg Neutrophils % Lymphocytes % (Manual) Monocytes % (Manual) Nucleated RBC % Seg Neutrophils # Seg Neutrophils # Man Monocytes # (Manual) PT INR Activated Clotting Time POC ABG pH POC ABG pCO2 POC ABG pO2 Sodium 147 H Potassium Chloride 108.8 H Carbon Dioxide BUN 39 H Creatinine 0.5 L Glucose 138 H POC Glucose 152 H 109 H Calcium Magnesium Direct Bilirubin AST ALT Alkaline Phosphatase Total Creatine Kinase CK-MB (CK-2) CK-MB (CK-2) Rel Index Troponin T C-Reactive Protein Total Protein Albumin Triglycerides Ur Specific [place] Urine WBC (Auto) Miscellaneous Test 04/10/17 04/10/17 04/10/17 00:13 04:16 04:16 WBC RBC Hgb 11.5 L Hct MCV 96 H MCH Plt Count 103 L Lymph % (Auto) 11.1 L [place] % (Auto) Eos % (Auto) Baso % (Auto) Lymph # Baso # Seg Neutrophils % 81.5 H Lymphocytes % (Manual) Monocytes % (Manual) Nucleated RBC % Seg Neutrophils # 8.8 H Seg Neutrophils # Man Monocytes # (Manual) PT INR Activated Clotting Time POC ABG pH POC ABG pCO2 POC ABG pO2 Sodium 148 H Potassium Chloride 109.0 H Carbon Dioxide BUN 36 H Creatinine 0.5 L Glucose 131 H POC Glucose 127 H Calcium 8.1 L Magnesium 2.40 H Direct Bilirubin AST 206 H ALT 228 H Alkaline Phosphatase 178 H Total Creatine Kinase CK-MB (CK-2) CK-MB (CK-2) Rel Index Troponin T C-Reactive Protein Total Protein Albumin 2.8 L Triglycerides Ur Specific [place] Urine WBC (Auto) Miscellaneous Test 04/10/17 04/10/17 04/10/17 06:01 11:57 18:27 WBC RBC Hgb Hct MCV MCH Plt Count Lymph % (Auto) [place] % (Auto) Eos % (Auto) Baso % (Auto) Lymph # Baso # Seg Neutrophils % Lymphocytes % (Manual) Monocytes % (Manual) Nucleated RBC % Seg Neutrophils # Seg Neutrophils # Man Monocytes # (Manual) PT INR Activated Clotting Time POC ABG pH POC ABG pCO2 POC ABG pO2 Sodium Potassium Chloride Carbon Dioxide BUN Creatinine Glucose POC Glucose 108 H 154 H 130 H Calcium Magnesium Direct Bilirubin AST ALT Alkaline Phosphatase Total Creatine Kinase CK-MB (CK-2) CK-MB (CK-2) Rel Index Troponin T C-Reactive Protein Total Protein Albumin Triglycerides Ur Specific [place] Urine WBC (Auto) Miscellaneous Test 04/11/17 04/11/17 04/12/17 12:25 17:10 00:22 WBC RBC Hgb Hct MCV MCH Plt Count Lymph % (Auto) [place] % (Auto) Eos % (Auto) Baso % (Auto) Lymph # Baso # Seg Neutrophils % Lymphocytes % (Manual) Monocytes % (Manual) Nucleated RBC % Seg Neutrophils # Seg Neutrophils # Man Monocytes # (Manual) PT INR Activated Clotting Time POC ABG pH POC ABG pCO2 POC ABG pO2 Sodium Potassium Chloride Carbon Dioxide BUN Creatinine Glucose POC Glucose 107 H 129 H 128 H Calcium Magnesium Direct Bilirubin AST ALT Alkaline Phosphatase Total Creatine Kinase CK-MB (CK-2) CK-MB (CK-2) Rel Index Troponin T C-Reactive Protein Total Protein Albumin Triglycerides Ur Specific [place] Urine WBC (Auto) Miscellaneous Test 04/12/17 04/12/17 04/12/17 05:00 11:57 17:47 WBC RBC Hgb Hct MCV MCH Plt Count Lymph % (Auto) [place] % (Auto) Eos % (Auto) Baso % (Auto) Lymph # Baso # Seg Neutrophils % Lymphocytes % (Manual) Monocytes % (Manual) Nucleated RBC % Seg Neutrophils # Seg Neutrophils # Man Monocytes # (Manual) PT INR Activated Clotting Time POC ABG pH POC ABG pCO2 POC ABG pO2 Sodium Potassium Chloride Carbon Dioxide BUN Creatinine Glucose POC Glucose 140 H 142 H Calcium Magnesium Direct Bilirubin AST 158 H ALT 184 H Alkaline Phosphatase 170 H Total Creatine Kinase CK-MB (CK-2) CK-MB (CK-2) Rel Index Troponin T C-Reactive Protein Total Protein Albumin 2.8 L Triglycerides Ur Specific [place] Urine WBC (Auto) Miscellaneous Test 04/12/17 04/12/17 04/13/17 21:36 21:36 01:37 WBC RBC Hgb Hct MCV MCH Plt Count Lymph % (Auto) [place] % (Auto) Eos % (Auto) Baso % (Auto) Lymph # Baso # Seg Neutrophils % Lymphocytes % (Manual) Monocytes % (Manual) Nucleated RBC % Seg Neutrophils # Seg Neutrophils # Man Monocytes # (Manual) PT INR Activated Clotting Time POC ABG pH POC ABG pCO2 POC ABG pO2 Sodium Potassium Chloride Carbon Dioxide BUN Creatinine Glucose POC Glucose 126 H Calcium Magnesium Direct Bilirubin AST ALT Alkaline Phosphatase Total Creatine Kinase 1404 H CK-MB (CK-2) 8.0 H CK-MB (CK-2) Rel Index Troponin T 0.767 H* C-Reactive Protein Total Protein Albumin Triglycerides Ur Specific [place] Urine WBC (Auto) Miscellaneous Test 04/13/17 04/13/17 04/13/17 04:45 04:52 12:17 WBC RBC Hgb Hct MCV MCH Plt Count Lymph % (Auto) [place] % (Auto) Eos % (Auto) Baso % (Auto) Lymph # Baso # Seg Neutrophils % Lymphocytes % (Manual) Monocytes % (Manual) Nucleated RBC % Seg Neutrophils # Seg Neutrophils # Man Monocytes # (Manual) PT INR Activated Clotting Time POC ABG pH POC ABG pCO2 POC ABG pO2 Sodium 148 H Potassium Chloride 112.8 H Carbon Dioxide BUN 33 H Creatinine 0.4 L Glucose 121 H POC Glucose 126 H 149 H Calcium Magnesium Direct Bilirubin AST 160 H ALT 189 H Alkaline Phosphatase 166 H Total Creatine Kinase CK-MB (CK-2) CK-MB (CK-2) Rel Index Troponin T C-Reactive Protein Total Protein Albumin 2.6 L Triglycerides Ur Specific [place] Urine WBC (Auto) Miscellaneous Test 04/13/17 04/14/17 04/14/17 17:45 00:20 00:45 WBC RBC Hgb Hct MCV MCH Plt Count Lymph % (Auto) [place] % (Auto) Eos % (Auto) Baso % (Auto) Lymph # Baso # Seg Neutrophils % Lymphocytes % (Manual) Monocytes % (Manual) Nucleated RBC % Seg Neutrophils # Seg Neutrophils # Man Monocytes # (Manual) PT INR Activated Clotting Time POC ABG pH POC ABG pCO2 POC ABG pO2 Sodium Potassium Chloride Carbon Dioxide BUN Creatinine Glucose POC Glucose 130 H 144 H 144 H Calcium Magnesium Direct Bilirubin AST ALT Alkaline Phosphatase Total Creatine Kinase CK-MB (CK-2) CK-MB (CK-2) Rel Index Troponin T C-Reactive Protein Total Protein Albumin Triglycerides Ur Specific [place] Urine WBC (Auto) Miscellaneous Test 04/14/17 04/14/17 04/14/17 05:40 11:06 11:31 WBC RBC Hgb Hct MCV MCH Plt Count Lymph % (Auto) [place] % (Auto) Eos % (Auto) Baso % (Auto) Lymph # Baso # Seg Neutrophils % Lymphocytes % (Manual) Monocytes % (Manual) Nucleated RBC % Seg Neutrophils # Seg Neutrophils # Man Monocytes # (Manual) PT INR Activated Clotting Time POC ABG pH POC ABG pCO2 POC ABG pO2 Sodium Potassium Chloride Carbon Dioxide BUN Creatinine Glucose POC Glucose 139 H 123 H Calcium Magnesium Direct Bilirubin AST ALT Alkaline Phosphatase Total Creatine Kinase CK-MB (CK-2) CK-MB (CK-2) Rel Index Troponin T C-Reactive Protein Total Protein Albumin Triglycerides Ur Specific [place] 1.033 H Urine WBC (Auto) > 182.0 H Miscellaneous Test 04/14/17 04/14/17 04/15/17 18:00 23:52 05:15 WBC 12.5 H RBC 3.38 L Hgb 10.6 L Hct 32.7 L MCV 97 H MCH Plt Count 107 L Lymph % (Auto) 8.7 L [place] % (Auto) Eos % (Auto) Baso % (Auto) Lymph # 1.1 L Baso # Seg Neutrophils % 86.1 H Lymphocytes % (Manual) Monocytes % (Manual) Nucleated RBC % Seg Neutrophils # 10.7 H Seg Neutrophils # Man Monocytes # (Manual) PT INR Activated Clotting Time POC ABG pH POC ABG pCO2 POC ABG pO2 Sodium Potassium Chloride Carbon Dioxide BUN Creatinine Glucose POC Glucose 133 H 133 H Calcium Magnesium Direct Bilirubin AST ALT Alkaline Phosphatase Total Creatine Kinase CK-MB (CK-2) CK-MB (CK-2) Rel Index Troponin T C-Reactive Protein Total Protein Albumin Triglycerides Ur Specific [place] Urine WBC (Auto) Miscellaneous Test 04/15/17 04/15/17 04/15/17 05:15 05:25 11:50 WBC RBC Hgb Hct MCV MCH Plt Count Lymph % (Auto) [place] % (Auto) Eos % (Auto) Baso % (Auto) Lymph # Baso # Seg Neutrophils % Lymphocytes % (Manual) Monocytes % (Manual) Nucleated RBC % Seg Neutrophils # Seg Neutrophils # Man Monocytes # (Manual) PT INR Activated Clotting Time POC ABG pH POC ABG pCO2 POC ABG pO2 Sodium 149 H Potassium 3.5 L Chloride 114.1 H Carbon Dioxide 21 L BUN 29 H Creatinine 0.4 L Glucose 128 H POC Glucose 133 H 107 H Calcium 8.3 L Magnesium Direct Bilirubin 0.4 H AST 149 H ALT 182 H Alkaline Phosphatase 143 H Total Creatine Kinase CK-MB (CK-2) CK-MB (CK-2) Rel Index Troponin T C-Reactive Protein Total Protein Albumin 2.5 L Triglycerides Ur Specific [place] Urine WBC (Auto) Miscellaneous Test 04/15/17 04/16/17 04/16/17 16:55 00:02 03:17 WBC RBC 3.39 L Hgb 10.5 L Hct 32.4 L MCV 96 H MCH Plt Count 106 L Lymph % (Auto) 6.7 L [place] % (Auto) Eos % (Auto) Baso % (Auto) Lymph # 0.6 L Baso # Seg Neutrophils % 86.8 H Lymphocytes % (Manual) Monocytes % (Manual) Nucleated RBC % Seg Neutrophils # 8.2 H Seg Neutrophils # Man Monocytes # (Manual) PT INR Activated Clotting Time POC ABG pH POC ABG pCO2 POC ABG pO2 Sodium Potassium Chloride Carbon Dioxide BUN Creatinine Glucose POC Glucose 146 H 148 H Calcium Magnesium Direct Bilirubin AST ALT Alkaline Phosphatase Total Creatine Kinase CK-MB (CK-2) CK-MB (CK-2) Rel Index Troponin T C-Reactive Protein Total Protein Albumin Triglycerides Ur Specific [place] Urine WBC (Auto) Miscellaneous Test 04/16/17 04/16/17 04/16/17 03:17 05:19 11:13 WBC RBC Hgb Hct MCV MCH Plt Count Lymph % (Auto) [place] % (Auto) Eos % (Auto) Baso % (Auto) Lymph # Baso # Seg Neutrophils % Lymphocytes % (Manual) Monocytes % (Manual) Nucleated RBC % Seg Neutrophils # Seg Neutrophils # Man Monocytes # (Manual) PT INR Activated Clotting Time POC ABG pH POC ABG pCO2 POC ABG pO2 Sodium 149 H Potassium Chloride 111.1 H Carbon Dioxide 20 L BUN 27 H Creatinine 0.3 L Glucose 156 H POC Glucose 171 H 169 H Calcium 8.3 L Magnesium Direct Bilirubin AST ALT Alkaline Phosphatase Total Creatine Kinase CK-MB (CK-2) CK-MB (CK-2) Rel Index Troponin T C-Reactive Protein Total Protein Albumin Triglycerides Ur Specific [place] Urine WBC (Auto) Miscellaneous Test 04/16/17 04/17/17 04/17/17 17:03 00:00 05:09 WBC RBC Hgb Hct MCV MCH Plt Count Lymph % (Auto) [place] % (Auto) Eos % (Auto) Baso % (Auto) Lymph # Baso # Seg Neutrophils % Lymphocytes % (Manual) Monocytes % (Manual) Nucleated RBC % Seg Neutrophils # Seg Neutrophils # Man Monocytes # (Manual) PT INR Activated Clotting Time POC ABG pH POC ABG pCO2 POC ABG pO2 Sodium Potassium Chloride Carbon Dioxide BUN Creatinine Glucose POC Glucose 151 H 165 H 145 H Calcium Magnesium Direct Bilirubin AST ALT Alkaline Phosphatase Total Creatine Kinase CK-MB (CK-2) CK-MB (CK-2) Rel Index Troponin T C-Reactive Protein Total Protein Albumin Triglycerides Ur Specific [place] Urine WBC (Auto) Miscellaneous Test 04/17/17 04/17/17 04/18/17 11:38 17:47 00:01 WBC RBC Hgb Hct MCV MCH Plt Count Lymph % (Auto) [place] % (Auto) Eos % (Auto) Baso % (Auto) Lymph # Baso # Seg Neutrophils % Lymphocytes % (Manual) Monocytes % (Manual) Nucleated RBC % Seg Neutrophils # Seg Neutrophils # Man Monocytes # (Manual) PT INR Activated Clotting Time POC ABG pH POC ABG pCO2 POC ABG pO2 Sodium Potassium Chloride Carbon Dioxide BUN Creatinine Glucose POC Glucose 170 H 161 H 131 H Calcium Magnesium Direct Bilirubin AST ALT Alkaline Phosphatase Total Creatine Kinase CK-MB (CK-2) CK-MB (CK-2) Rel Index Troponin T C-Reactive Protein Total Protein Albumin Triglycerides Ur Specific [place] Urine WBC (Auto) Miscellaneous Test 04/18/17 04/18/17 04/18/17 03:55 03:55 05:30 WBC RBC 3.05 L Hgb 9.8 L Hct 29.0 L MCV 95 H MCH Plt Count 113 L Lymph % (Auto) [place] % (Auto) Eos % (Auto) 5.3 H Baso % (Auto) Lymph # Baso # Seg Neutrophils % 71.5 H Lymphocytes % (Manual) Monocytes % (Manual) Nucleated RBC % Seg Neutrophils # Seg Neutrophils # Man Monocytes # (Manual) PT INR Activated Clotting Time POC ABG pH 7.460 H POC ABG pCO2 30.8 L POC ABG pO2 129 H Sodium Potassium Chloride Carbon Dioxide 21 L BUN 25 H Creatinine 0.4 L Glucose 123 H POC Glucose Calcium 8.3 L Magnesium Direct Bilirubin AST ALT Alkaline Phosphatase Total Creatine Kinase CK-MB (CK-2) CK-MB (CK-2) Rel Index Troponin T C-Reactive Protein Total Protein Albumin Triglycerides Ur Specific [place] Urine WBC (Auto) Miscellaneous Test 04/18/17 04/18/17 04/19/17 17:10 23:40 04:36 WBC RBC 3.21 L Hgb 10.2 L Hct 30.4 L MCV 95 H MCH Plt Count 131 L Lymph % (Auto) 12.1 L [place] % (Auto) Eos % (Auto) 4.7 H Baso % (Auto) 2.4 H Lymph # 0.9 L Baso # 0.2 H Seg Neutrophils % 75.0 H Lymphocytes % (Manual) Monocytes % (Manual) Nucleated RBC % Seg Neutrophils # Seg Neutrophils # Man Monocytes # (Manual) PT INR Activated Clotting Time POC ABG pH POC ABG pCO2 POC ABG pO2 Sodium Potassium Chloride Carbon Dioxide BUN Creatinine Glucose POC Glucose 135 H 157 H Calcium Magnesium Direct Bilirubin AST ALT Alkaline Phosphatase Total Creatine Kinase CK-MB (CK-2) CK-MB (CK-2) Rel Index Troponin T C-Reactive Protein Total Protein Albumin Triglycerides Ur Specific [place] Urine WBC (Auto) Miscellaneous Test 04/19/17 04/19/17 04/19/17 04:36 05:12 06:50 WBC RBC Hgb Hct MCV MCH Plt Count Lymph % (Auto) [place] % (Auto) Eos % (Auto) Baso % (Auto) Lymph # Baso # Seg Neutrophils % Lymphocytes % (Manual) Monocytes % (Manual) Nucleated RBC % Seg Neutrophils # Seg Neutrophils # Man Monocytes # (Manual) PT INR Activated Clotting Time POC ABG pH 7.516 H POC ABG pCO2 28.0 L POC ABG pO2 Sodium Potassium Chloride Carbon Dioxide 21 L BUN 23 H Creatinine 0.2 L Glucose 137 H POC Glucose 131 H Calcium 7.9 L Magnesium Direct Bilirubin AST ALT Alkaline Phosphatase Total Creatine Kinase CK-MB (CK-2) CK-MB (CK-2) Rel Index Troponin T C-Reactive Protein Total Protein Albumin Triglycerides Ur Specific [place] Urine WBC (Auto) Miscellaneous Test 04/19/17 04/19/17 04/20/17 12:36 17:42 00:12 WBC RBC Hgb Hct MCV MCH Plt Count Lymph % (Auto) [place] % (Auto) Eos % (Auto) Baso % (Auto) Lymph # Baso # Seg Neutrophils % Lymphocytes % (Manual) Monocytes % (Manual) Nucleated RBC % Seg Neutrophils # Seg Neutrophils # Man Monocytes # (Manual) PT INR Activated Clotting Time POC ABG pH POC ABG pCO2 POC ABG pO2 Sodium Potassium Chloride Carbon Dioxide BUN Creatinine Glucose POC Glucose 128 H 140 H 132 H Calcium Magnesium Direct Bilirubin AST ALT Alkaline Phosphatase Total Creatine Kinase CK-MB (CK-2) CK-MB (CK-2) Rel Index Troponin T C-Reactive Protein Total Protein Albumin Triglycerides Ur Specific [place] Urine WBC (Auto) Miscellaneous Test 04/20/17 04/20/17 04/20/17 03:35 03:35 05:10 WBC RBC 3.34 L Hgb 10.4 L Hct 31.6 L MCV 95 H MCH Plt Count Lymph % (Auto) 12.9 L [place] % (Auto) Eos % (Auto) Baso % (Auto) Lymph # Baso # Seg Neutrophils % 77.3 H Lymphocytes % (Manual) Monocytes % (Manual) Nucleated RBC % Seg Neutrophils # Seg Neutrophils # Man Monocytes # (Manual) PT INR Activated Clotting Time POC ABG pH POC ABG pCO2 POC ABG pO2 Sodium Potassium Chloride Carbon Dioxide BUN Creatinine 0.3 L Glucose 155 H POC Glucose 135 H Calcium 7.8 L Magnesium Direct Bilirubin AST ALT Alkaline Phosphatase Total Creatine Kinase CK-MB (CK-2) CK-MB (CK-2) Rel Index Troponin T C-Reactive Protein Total Protein Albumin Triglycerides Ur Specific [place] Urine WBC (Auto) Miscellaneous Test 04/20/17 04/20/17 04/21/17 12:49 18:21 00:05 WBC RBC Hgb Hct MCV MCH Plt Count Lymph % (Auto) [place] % (Auto) Eos % (Auto) Baso % (Auto) Lymph # Baso # Seg Neutrophils % Lymphocytes % (Manual) Monocytes % (Manual) Nucleated RBC % Seg Neutrophils # Seg Neutrophils # Man Monocytes # (Manual) PT INR Activated Clotting Time POC ABG pH POC ABG pCO2 POC ABG pO2 Sodium Potassium Chloride Carbon Dioxide BUN Creatinine Glucose POC Glucose 155 H 165 H 141 H Calcium Magnesium Direct Bilirubin AST ALT Alkaline Phosphatase Total Creatine Kinase CK-MB (CK-2) CK-MB (CK-2) Rel Index Troponin T C-Reactive Protein Total Protein Albumin Triglycerides Ur Specific [place] Urine WBC (Auto) Miscellaneous Test 04/21/17 04/21/17 04/21/17 06:00 12:11 17:04 WBC RBC Hgb Hct MCV MCH Plt Count Lymph % (Auto) [place] % (Auto) Eos % (Auto) Baso % (Auto) Lymph # Baso # Seg Neutrophils % Lymphocytes % (Manual) Monocytes % (Manual) Nucleated RBC % Seg Neutrophils # Seg Neutrophils # Man Monocytes # (Manual) PT INR Activated Clotting Time POC ABG pH POC ABG pCO2 POC ABG pO2 Sodium Potassium Chloride Carbon Dioxide BUN Creatinine Glucose POC Glucose 152 H 165 H 156 H Calcium Magnesium Direct Bilirubin AST ALT Alkaline Phosphatase Total Creatine Kinase CK-MB (CK-2) CK-MB (CK-2) Rel Index Troponin T C-Reactive Protein Total Protein Albumin Triglycerides Ur Specific [place] Urine WBC (Auto) Miscellaneous Test 04/21/17 04/21/17 04/22/17 22:00 23:59 05:49 WBC RBC Hgb Hct MCV MCH Plt Count Lymph % (Auto) [place] % (Auto) Eos % (Auto) Baso % (Auto) Lymph # Baso # Seg Neutrophils % Lymphocytes % (Manual) Monocytes % (Manual) Nucleated RBC % Seg Neutrophils # Seg Neutrophils # Man Monocytes # (Manual) PT INR Activated Clotting Time POC ABG pH POC ABG pCO2 POC ABG pO2 Sodium Potassium Chloride Carbon Dioxide BUN Creatinine Glucose POC Glucose 166 H 173 H Calcium Magnesium Direct Bilirubin AST ALT Alkaline Phosphatase Total Creatine Kinase CK-MB (CK-2) CK-MB (CK-2) Rel Index Troponin T C-Reactive Protein Total Protein Albumin Triglycerides Ur Specific [place] Urine WBC (Auto) 10.0 H Miscellaneous Test 04/22/17 04/22/17 04/23/17 11:11 18:04 00:37 WBC RBC Hgb Hct MCV MCH Plt Count Lymph % (Auto) [place] % (Auto) Eos % (Auto) Baso % (Auto) Lymph # Baso # Seg Neutrophils % Lymphocytes % (Manual) Monocytes % (Manual) Nucleated RBC % Seg Neutrophils # Seg Neutrophils # Man Monocytes # (Manual) PT INR Activated Clotting Time POC ABG pH POC ABG pCO2 POC ABG pO2 Sodium Potassium Chloride Carbon Dioxide BUN Creatinine Glucose POC Glucose 172 H 140 H 135 H Calcium Magnesium Direct Bilirubin AST ALT Alkaline Phosphatase Total Creatine Kinase CK-MB (CK-2) CK-MB (CK-2) Rel Index Troponin T C-Reactive Protein Total Protein Albumin Triglycerides Ur Specific [place] Urine WBC (Auto) Miscellaneous Test 04/23/17 04/23/17 04/23/17 05:33 06:20 11:10 WBC RBC 3.19 L Hgb 9.9 L Hct 30.0 L MCV MCH Plt Count Lymph % (Auto) 8.0 L [place] % (Auto) Eos % (Auto) Baso % (Auto) Lymph # 0.8 L Baso # Seg Neutrophils % 84.5 H Lymphocytes % (Manual) Monocytes % (Manual) Nucleated RBC % Seg Neutrophils # 8.2 H Seg Neutrophils # Man Monocytes # (Manual) PT INR Activated Clotting Time POC ABG pH POC ABG pCO2 POC ABG pO2 Sodium Potassium Chloride Carbon Dioxide BUN Creatinine Glucose POC Glucose 134 H 134 H Calcium Magnesium Direct Bilirubin AST ALT Alkaline Phosphatase Total Creatine Kinase CK-MB (CK-2) CK-MB (CK-2) Rel Index Troponin T C-Reactive Protein Total Protein Albumin Triglycerides Ur Specific [place] Urine WBC (Auto) Miscellaneous Test 04/23/17 04/24/17 04/24/17 17:26 00:53 06:46 WBC RBC Hgb Hct MCV MCH Plt Count Lymph % (Auto) [place] % (Auto) Eos % (Auto) Baso % (Auto) Lymph # Baso # Seg Neutrophils % Lymphocytes % (Manual) Monocytes % (Manual) Nucleated RBC % Seg Neutrophils # Seg Neutrophils # Man Monocytes # (Manual) PT INR Activated Clotting Time POC ABG pH POC ABG pCO2 POC ABG pO2 Sodium Potassium Chloride Carbon Dioxide BUN Creatinine Glucose POC Glucose 164 H 146 H 125 H Calcium Magnesium Direct Bilirubin AST ALT Alkaline Phosphatase Total Creatine Kinase CK-MB (CK-2) CK-MB (CK-2) Rel Index Troponin T C-Reactive Protein Total Protein Albumin Triglycerides Ur Specific [place] Urine WBC (Auto) Miscellaneous Test 04/24/17 04/24/17 04/24/17 11:55 17:50 23:36 WBC RBC Hgb Hct MCV MCH Plt Count Lymph % (Auto) [place] % (Auto) Eos % (Auto) Baso % (Auto) Lymph # Baso # Seg Neutrophils % Lymphocytes % (Manual) Monocytes % (Manual) Nucleated RBC % Seg Neutrophils # Seg Neutrophils # Man Monocytes # (Manual) PT INR Activated Clotting Time POC ABG pH POC ABG pCO2 POC ABG pO2 Sodium Potassium Chloride Carbon Dioxide BUN Creatinine Glucose POC Glucose 156 H 146 H 131 H Calcium Magnesium Direct Bilirubin AST ALT Alkaline Phosphatase Total Creatine Kinase CK-MB (CK-2) CK-MB (CK-2) Rel Index Troponin T C-Reactive Protein Total Protein Albumin Triglycerides Ur Specific [place] Urine WBC (Auto) Miscellaneous Test 04/25/17 04/25/17 04/25/17 04:51 05:16 07:07 WBC RBC Hgb Hct MCV MCH Plt Count Lymph % (Auto) [place] % (Auto) Eos % (Auto) Baso % (Auto) Lymph # Baso # Seg Neutrophils % Lymphocytes % (Manual) Monocytes % (Manual) Nucleated RBC % Seg Neutrophils # Seg Neutrophils # Man Monocytes # (Manual) PT INR Activated Clotting Time POC ABG pH POC ABG pCO2 POC ABG pO2 Sodium Potassium Chloride Carbon Dioxide BUN Creatinine Glucose POC Glucose 139 H Calcium Magnesium Direct Bilirubin AST 105 H ALT 204 H Alkaline Phosphatase 189 H Total Creatine Kinase CK-MB (CK-2) CK-MB (CK-2) Rel Index Troponin T C-Reactive Protein Total Protein Albumin 2.4 L Triglycerides Ur Specific [place] Urine WBC (Auto) Miscellaneous Test Flexitest 1 H 04/25/17 04/25/17 04/25/17 12:29 17:23 23:32 WBC RBC Hgb Hct MCV MCH Plt Count Lymph % (Auto) [place] % (Auto) Eos % (Auto) Baso % (Auto) Lymph # Baso # Seg Neutrophils % Lymphocytes % (Manual) Monocytes % (Manual) Nucleated RBC % Seg Neutrophils # Seg Neutrophils # Man Monocytes # (Manual) PT INR Activated Clotting Time POC ABG pH POC ABG pCO2 POC ABG pO2 Sodium Potassium Chloride Carbon Dioxide BUN Creatinine Glucose POC Glucose 132 H 133 H 128 H Calcium Magnesium Direct Bilirubin AST ALT Alkaline Phosphatase Total Creatine Kinase CK-MB (CK-2) CK-MB (CK-2) Rel Index Troponin T C-Reactive Protein Total Protein Albumin Triglycerides Ur Specific [place] Urine WBC (Auto) Miscellaneous Test 04/26/17 04/26/17 04/26/17 05:24 11:28 17:09 WBC RBC Hgb Hct MCV MCH Plt Count Lymph % (Auto) [place] % (Auto) Eos % (Auto) Baso % (Auto) Lymph # Baso # Seg Neutrophils % Lymphocytes % (Manual) Monocytes % (Manual) Nucleated RBC % Seg Neutrophils # Seg Neutrophils # Man Monocytes # (Manual) PT INR Activated Clotting Time POC ABG pH POC ABG pCO2 POC ABG pO2 Sodium Potassium Chloride Carbon Dioxide BUN Creatinine Glucose POC Glucose 132 H 146 H 141 H Calcium Magnesium Direct Bilirubin AST ALT Alkaline Phosphatase Total Creatine Kinase CK-MB (CK-2) CK-MB (CK-2) Rel Index Troponin T C-Reactive Protein Total Protein Albumin Triglycerides Ur Specific [place] Urine WBC (Auto) Miscellaneous Test 04/26/17 04/27/17 04/27/17 23:52 05:40 05:40 WBC RBC 3.22 L Hgb 10.0 L Hct 29.9 L MCV MCH Plt Count Lymph % (Auto) [place] % (Auto) Eos % (Auto) Baso % (Auto) Lymph # Baso # Seg Neutrophils % 76.6 H Lymphocytes % (Manual) Monocytes % (Manual) Nucleated RBC % Seg Neutrophils # Seg Neutrophils # Man Monocytes # (Manual) PT INR Activated Clotting Time POC ABG pH POC ABG pCO2 POC ABG pO2 Sodium Potassium Chloride Carbon Dioxide BUN Creatinine Glucose POC Glucose 140 H Calcium Magnesium Direct Bilirubin AST 66 H ALT 137 H Alkaline Phosphatase 169 H Total Creatine Kinase CK-MB (CK-2) CK-MB (CK-2) Rel Index Troponin T C-Reactive Protein Total Protein 6.2 L Albumin 2.6 L Triglycerides Ur Specific [place] Urine WBC (Auto) Miscellaneous Test 04/27/17 04/27/17 04/27/17 05:40 06:10 11:13 WBC RBC Hgb Hct MCV MCH Plt Count Lymph % (Auto) [place] % (Auto) Eos % (Auto) Baso % (Auto) Lymph # Baso # Seg Neutrophils % Lymphocytes % (Manual) Monocytes % (Manual) Nucleated RBC % Seg Neutrophils # Seg Neutrophils # Man Monocytes # (Manual) PT INR Activated Clotting Time POC ABG pH POC ABG pCO2 POC ABG pO2 Sodium Potassium Chloride Carbon Dioxide BUN Creatinine 0.2 L Glucose 139 H POC Glucose 130 H 151 H Calcium Magnesium Direct Bilirubin AST ALT Alkaline Phosphatase Total Creatine Kinase CK-MB (CK-2) CK-MB (CK-2) Rel Index Troponin T C-Reactive Protein Total Protein Albumin Triglycerides Ur Specific [place] Urine WBC (Auto) Miscellaneous Test 04/27/17 04/27/17 04/28/17 17:37 23:19 05:24 WBC RBC Hgb Hct MCV MCH Plt Count Lymph % (Auto) [place] % (Auto) Eos % (Auto) Baso % (Auto) Lymph # Baso # Seg Neutrophils % Lymphocytes % (Manual) Monocytes % (Manual) Nucleated RBC % Seg Neutrophils # Seg Neutrophils # Man Monocytes # (Manual) PT INR Activated Clotting Time POC ABG pH POC ABG pCO2 POC ABG pO2 Sodium Potassium Chloride Carbon Dioxide BUN Creatinine Glucose POC Glucose 159 H 130 H 132 H Calcium Magnesium Direct Bilirubin AST ALT Alkaline Phosphatase Total Creatine Kinase CK-MB (CK-2) CK-MB (CK-2) Rel Index Troponin T C-Reactive Protein Total Protein Albumin Triglycerides Ur Specific [place] Urine WBC (Auto) Miscellaneous Test 04/28/17 04/28/17 04/28/17 11:15 17:38 23:23 WBC RBC Hgb Hct MCV MCH Plt Count Lymph % (Auto) [place] % (Auto) Eos % (Auto) Baso % (Auto) Lymph # Baso # Seg Neutrophils % Lymphocytes % (Manual) Monocytes % (Manual) Nucleated RBC % Seg Neutrophils # Seg Neutrophils # Man Monocytes # (Manual) PT INR Activated Clotting Time POC ABG pH POC ABG pCO2 POC ABG pO2 Sodium Potassium Chloride Carbon Dioxide BUN Creatinine Glucose POC Glucose 162 H 133 H 138 H Calcium Magnesium Direct Bilirubin AST ALT Alkaline Phosphatase Total Creatine Kinase CK-MB (CK-2) CK-MB (CK-2) Rel Index Troponin T C-Reactive Protein Total Protein Albumin Triglycerides Ur Specific [place] Urine WBC (Auto) Miscellaneous Test 04/29/17 04/29/17 04/29/17 05:15 12:55 17:21 WBC RBC Hgb Hct MCV MCH Plt Count Lymph % (Auto) [place] % (Auto) Eos % (Auto) Baso % (Auto) Lymph # Baso # Seg Neutrophils % Lymphocytes % (Manual) Monocytes % (Manual) Nucleated RBC % Seg Neutrophils # Seg Neutrophils # Man Monocytes # (Manual) PT INR Activated Clotting Time POC ABG pH POC ABG pCO2 POC ABG pO2 Sodium Potassium Chloride Carbon Dioxide BUN Creatinine Glucose POC Glucose 135 H 127 H 138 H Calcium Magnesium Direct Bilirubin AST ALT Alkaline Phosphatase Total Creatine Kinase CK-MB (CK-2) CK-MB (CK-2) Rel Index Troponin T C-Reactive Protein Total Protein Albumin Triglycerides Ur Specific [place] Urine WBC (Auto) Miscellaneous Test 04/29/17 04/30/17 04/30/17 23:52 04:55 12:22 WBC RBC Hgb Hct MCV MCH Plt Count Lymph % (Auto) [place] % (Auto) Eos % (Auto) Baso % (Auto) Lymph # Baso # Seg Neutrophils % Lymphocytes % (Manual) Monocytes % (Manual) Nucleated RBC % Seg Neutrophils # Seg Neutrophils # Man Monocytes # (Manual) PT INR Activated Clotting Time POC ABG pH POC ABG pCO2 POC ABG pO2 Sodium Potassium Chloride Carbon Dioxide BUN Creatinine Glucose POC Glucose 142 H 146 H 132 H Calcium Magnesium Direct Bilirubin AST ALT Alkaline Phosphatase Total Creatine Kinase CK-MB (CK-2) CK-MB (CK-2) Rel Index Troponin T C-Reactive Protein Total Protein Albumin Triglycerides Ur Specific [place] Urine WBC (Auto) Miscellaneous Test 04/30/17 04/30/17 04/30/17 14:25 17:47 18:20 WBC RBC Hgb Hct MCV MCH Plt Count Lymph % (Auto) [place] % (Auto) Eos % (Auto) Baso % (Auto) Lymph # Baso # Seg Neutrophils % Lymphocytes % (Manual) Monocytes % (Manual) Nucleated RBC % Seg Neutrophils # Seg Neutrophils # Man Monocytes # (Manual) PT INR Activated Clotting Time POC ABG pH 7.551 H POC ABG pCO2 32.7 L POC ABG pO2 Sodium Potassium Chloride Carbon Dioxide BUN 21 H Creatinine 0.2 L Glucose 141 H POC Glucose 139 H Calcium Magnesium Direct Bilirubin AST ALT Alkaline Phosphatase Total Creatine Kinase CK-MB (CK-2) CK-MB (CK-2) Rel Index Troponin T C-Reactive Protein Total Protein Albumin Triglycerides Ur Specific [place] Urine WBC (Auto) Miscellaneous Test 05/01/17 05/01/17 05/01/17 01:26 05:30 05:30 WBC RBC 3.49 L Hgb 10.3 L Hct 31.9 L MCV MCH Plt Count Lymph % (Auto) [place] % (Auto) 8.1 H Eos % (Auto) Baso % (Auto) Lymph # Baso # Seg Neutrophils % 71.3 H Lymphocytes % (Manual) Monocytes % (Manual) Nucleated RBC % Seg Neutrophils # Seg Neutrophils # Man Monocytes # (Manual) PT INR Activated Clotting Time POC ABG pH POC ABG pCO2 POC ABG pO2 Sodium 136 L Potassium Chloride 97.6 L Carbon Dioxide BUN Creatinine 0.2 L Glucose 123 H POC Glucose 116 H Calcium Magnesium Direct Bilirubin AST 71 H ALT 125 H Alkaline Phosphatase 158 H Total Creatine Kinase CK-MB (CK-2) CK-MB (CK-2) Rel Index Troponin T C-Reactive Protein Total Protein Albumin 2.6 L Triglycerides Ur Specific [place] Urine WBC (Auto) Miscellaneous Test 05/01/17 05/01/17 05/02/17 11:59 17:23 00:08 WBC RBC Hgb Hct MCV MCH Plt Count Lymph % (Auto) [place] % (Auto) Eos % (Auto) Baso % (Auto) Lymph # Baso # Seg Neutrophils % Lymphocytes % (Manual) Monocytes % (Manual) Nucleated RBC % Seg Neutrophils # Seg Neutrophils # Man Monocytes # (Manual) PT INR Activated Clotting Time POC ABG pH POC ABG pCO2 POC ABG pO2 Sodium Potassium Chloride Carbon Dioxide BUN Creatinine Glucose POC Glucose 118 H 144 H 122 H Calcium Magnesium Direct Bilirubin AST ALT Alkaline Phosphatase Total Creatine Kinase CK-MB (CK-2) CK-MB (CK-2) Rel Index Troponin T C-Reactive Protein Total Protein Albumin Triglycerides Ur Specific [place] Urine WBC (Auto) Miscellaneous Test 05/02/17 05/02/17 05/02/17 05:50 11:21 17:48 WBC RBC Hgb Hct MCV MCH Plt Count Lymph % (Auto) [place] % (Auto) Eos % (Auto) Baso % (Auto) Lymph # Baso # Seg Neutrophils % Lymphocytes % (Manual) Monocytes % (Manual) Nucleated RBC % Seg Neutrophils # Seg Neutrophils # Man Monocytes # (Manual) PT INR Activated Clotting Time POC ABG pH POC ABG pCO2 POC ABG pO2 Sodium Potassium Chloride Carbon Dioxide BUN Creatinine Glucose POC Glucose 120 H 121 H 140 H Calcium Magnesium Direct Bilirubin AST ALT Alkaline Phosphatase Total Creatine Kinase CK-MB (CK-2) CK-MB (CK-2) Rel Index Troponin T C-Reactive Protein Total Protein Albumin Triglycerides Ur Specific [place] Urine WBC (Auto) Miscellaneous Test 05/02/17 05/03/17 05/03/17 23:12 05:35 11:52 WBC RBC Hgb Hct MCV MCH Plt Count Lymph % (Auto) [place] % (Auto) Eos % (Auto) Baso % (Auto) Lymph # Baso # Seg Neutrophils % Lymphocytes % (Manual) Monocytes % (Manual) Nucleated RBC % Seg Neutrophils # Seg Neutrophils # Man Monocytes # (Manual) PT INR Activated Clotting Time POC ABG pH POC ABG pCO2 POC ABG pO2 Sodium Potassium Chloride Carbon Dioxide BUN Creatinine Glucose POC Glucose 128 H 113 H 126 H Calcium Magnesium Direct Bilirubin AST ALT Alkaline Phosphatase Total Creatine Kinase CK-MB (CK-2) CK-MB (CK-2) Rel Index Troponin T C-Reactive Protein Total Protein Albumin Triglycerides Ur Specific [place] Urine WBC (Auto) Miscellaneous Test 0205/03/17 05/04/17 17:29 23:26 04:55 WBC RBC Hgb Hct MCV MCH Plt Count Lymph % (Auto) [place] % (Auto) Eos % (Auto) Baso % (Auto) Lymph # Baso # Seg Neutrophils % Lymphocytes % (Manual) Monocytes % (Manual) Nucleated RBC % Seg Neutrophils # Seg Neutrophils # Man Monocytes # (Manual) PT INR Activated Clotting Time POC ABG pH POC ABG pCO2 POC ABG pO2 Sodium Potassium Chloride Carbon Dioxide BUN Creatinine Glucose POC Glucose 141 H 129 H 126 H Calcium Magnesium Direct Bilirubin AST ALT Alkaline Phosphatase Total Creatine Kinase CK-MB (CK-2) CK-MB (CK-2) Rel Index Troponin T C-Reactive Protein Total Protein Albumin Triglycerides Ur Specific [place] Urine WBC (Auto) Miscellaneous Test 05/04/17 05/04/17 05/05/17 12:09 17:46 00:06 WBC RBC Hgb Hct MCV MCH Plt Count Lymph % (Auto) [place] % (Auto) Eos % (Auto) Baso % (Auto) Lymph # Baso # Seg Neutrophils % Lymphocytes % (Manual) Monocytes % (Manual) Nucleated RBC % Seg Neutrophils # Seg Neutrophils # Man Monocytes # (Manual) PT INR Activated Clotting Time POC ABG pH POC ABG pCO2 POC ABG pO2 Sodium Potassium Chloride Carbon Dioxide BUN Creatinine Glucose POC Glucose 125 H 125 H 110 H Calcium Magnesium Direct Bilirubin AST ALT Alkaline Phosphatase Total Creatine Kinase CK-MB (CK-2) CK-MB (CK-2) Rel Index Troponin T C-Reactive Protein Total Protein Albumin Triglycerides Ur Specific [place] Urine WBC (Auto) Miscellaneous Test 05/05/17 05/05/17 05/05/17 05:48 11:41 16:19 WBC RBC Hgb Hct MCV MCH Plt Count Lymph % (Auto) [place] % (Auto) Eos % (Auto) Baso % (Auto) Lymph # Baso # Seg Neutrophils % Lymphocytes % (Manual) Monocytes % (Manual) Nucleated RBC % Seg Neutrophils # Seg Neutrophils # Man Monocytes # (Manual) PT INR Activated Clotting Time POC ABG pH POC ABG pCO2 POC ABG pO2 Sodium Potassium Chloride Carbon Dioxide BUN Creatinine Glucose POC Glucose 124 H 122 H 120 H Calcium Magnesium Direct Bilirubin AST ALT Alkaline Phosphatase Total Creatine Kinase CK-MB (CK-2) CK-MB (CK-2) Rel Index Troponin T C-Reactive Protein Total Protein Albumin Triglycerides Ur Specific [place] Urine WBC (Auto) Miscellaneous Test 05/06/17 05/06/17 05/06/17 00:16 05:47 11:42 WBC RBC Hgb Hct MCV MCH Plt Count Lymph % (Auto) [place] % (Auto) Eos % (Auto) Baso % (Auto) Lymph # Baso # Seg Neutrophils % Lymphocytes % (Manual) Monocytes % (Manual) Nucleated RBC % Seg Neutrophils # Seg Neutrophils # Man Monocytes # (Manual) PT INR Activated Clotting Time POC ABG pH POC ABG pCO2 POC ABG pO2 Sodium Potassium Chloride Carbon Dioxide BUN Creatinine Glucose POC Glucose 110 H 142 H 120 H Calcium Magnesium Direct Bilirubin AST ALT Alkaline Phosphatase Total Creatine Kinase CK-MB (CK-2) CK-MB (CK-2) Rel Index Troponin T C-Reactive Protein Total Protein Albumin Triglycerides Ur Specific [place] Urine WBC (Auto) Miscellaneous Test 05/06/17 05/07/17 05/07/17 17:46 00:07 05:28 WBC RBC Hgb Hct MCV MCH Plt Count Lymph % (Auto) [place] % (Auto) Eos % (Auto) Baso % (Auto) Lymph # Baso # Seg Neutrophils % Lymphocytes % (Manual) Monocytes % (Manual) Nucleated RBC % Seg Neutrophils # Seg Neutrophils # Man Monocytes # (Manual) PT INR Activated Clotting Time POC ABG pH POC ABG pCO2 POC ABG pO2 Sodium Potassium Chloride Carbon Dioxide BUN Creatinine Glucose POC Glucose 127 H 145 H 124 H Calcium Magnesium Direct Bilirubin AST ALT Alkaline Phosphatase Total Creatine Kinase CK-MB (CK-2) CK-MB (CK-2) Rel Index Troponin T C-Reactive Protein Total Protein Albumin Triglycerides Ur Specific [place] Urine WBC (Auto) Miscellaneous Test
[2017-05-07] MEDS: ASPIRIN PO SCH (10:47)
[2017-05-07] MEDS: PLAVIX PO SCH (10:47)
[2017-05-07] MEDS: CORDARONE PO SCH ×2 (10:47→22:44)
[2017-05-07] MEDS: HEPARIN SUB-Q SCH ×2 (10:48→22:44)
[2017-05-07] MEDS: ZESTRIL PO SCH (10:48)
[2017-05-07] MEDS: ELIQUIS PO SCH ×2 (10:50→22:44)
[2017-05-07] MEDS: PROTONIX FEEDTUBE SCH (10:50)
--- NOTE | 2017-05-07 15:16 | Progress Note ---
Assessment and Plan 1. Status post cardiac arrest. 2. Status post acute anterior ST elevation MD. 3. Status post PCI to the left anterior descending artery with bare metal stent deployed. 4. Ischemic cardiomyopathy left ventricular ejection fraction 50-55% 5. Respiratory failure 6. Possible anoxic Encephalopathy Plan. Continue supportive cardiac management. Continue present medication. Subjective Date of service: 05/07/17 Principal diagnosis: coma,ARV,s/p arrest Interval history: Patient intubated and sedated on mechanical vent Objective Vital Signs Temp Pulse Pulse Pulse Resp BP Pulse Ox 05/07/17 14:31 89 20 96/55 99 05/07/17 14:00 90 20 96/55 96 05/07/17 13:31 89 20 98/55 100 05/07/17 13:01 88 13 91/49 100 05/07/17 13:00 88 20 98/55 98 05/07/17 12:31 92 H 16 91/49 99 05/07/17 12:00 87 16 91/49 99 05/07/17 11:47 99.7 F H 05/07/17 11:31 91 H 11 L 93/57 100 05/07/17 11:00 92 H 15 97/62 05/07/17 10:30 93 H 17 97/62 100 05/07/17 10:00 93 H 17 97/62 05/07/17 09:30 91 H 16 96/59 100 05/07/17 09:00 89 17 96/59 05/07/17 08:30 88 16 101/64 100 05/07/17 08:14 91 H 15 101/64 100 05/07/17 08:00 91 H 21 101/64 05/07/17 07:48 99.2 F 05/07/17 07:30 90 19 100/61 100 05/07/17 07:00 90 17 100/61 05/07/17 06:30 90 19 104/66 100 05/07/17 06:00 89 13 96/62 100 05/07/17 05:30 85 20 96/62 100 05/07/17 05:00 83 20 96/62 100 05/07/17 04:32 84 85/50 100 05/07/17 04:30 100 05/07/17 04:00 99.0 F 77 17 85/50 05/07/17 03:00 79 20 94/57 05/07/17 02:00 81 19 98/63 99 05/07/17 01:33 05/07/17 01:31 82 87/54 100 05/07/17 01:00 85 18 87/54 100 05/07/17 00:08 98/56 05/07/17 00:00 98.9 F 93 H 27 H 98/56 100 05/06/17 23:02 86 05/06/17 23:00 88 22 103/67 100 05/06/17 22:58 88 22 101/64 100 05/06/17 22:00 93 H 16 112/73 100 05/06/17 21:20 87 23 112/75 100 05/06/17 21:00 86 86 24 107/69 100 05/06/17 20:00 82 20 83/50 99 05/06/17 19:43 98.8 F 05/06/17 19:12 82 83/50 100 05/06/17 19:00 76 17 83/50 100 05/06/17 18:00 82 19 90/58 100 05/06/17 17:07 88 19 93/55 99 05/06/17 17:01 84 15 91/57 100 05/06/17 16:14 78 15 100 05/06/17 16:12 05/06/17 16:01 71 14 91/57 100 05/06/17 16:00 99.0 F 19 99 Pulse Ox 05/07/17 14:31 05/07/17 14:00 05/07/17 13:31 05/07/17 13:01 05/07/17 13:00 05/07/17 12:31 05/07/17 12:00 05/07/17 11:47 05/07/17 11:31 05/07/17 11:00 05/07/17 10:30 05/07/17 10:00 05/07/17 09:30 05/07/17 09:00 05/07/17 08:30 05/07/17 08:14 05/07/17 08:00 05/07/17 07:48 05/07/17 07:30 05/07/17 07:00 05/07/17 06:30 05/07/17 06:00 05/07/17 05:30 05/07/17 05:00 05/07/17 04:32 05/07/17 04:30 05/07/17 04:00 05/07/17 03:00 05/07/17 02:00 05/07/17 01:33 100 05/07/17 01:31 05/07/17 01:00 05/07/17 00:08 05/07/17 00:00 05/06/17 23:02 05/06/17 23:00 05/06/17 22:58 05/06/17 22:00 05/06/17 21:20 05/06/17 21:00 05/06/17 20:00 05/06/17 19:43 05/06/17 19:12 05/06/17 19:00 05/06/17 18:00 05/06/17 17:07 05/06/17 17:01 05/06/17 16:14 05/06/17 16:12 100 05/06/17 16:01 05/06/17 16:00 - Physical Examination General: Other (unresponsive on the vent) HEENT: Positive: Other (unresponsive, vent) Neck: Positive: trachea midline. Negative: JVD/HJR Cardiac: Positive: Regular Rate, S1/S2, S3, PMI, Laterally Displaced Lungs: Positive: clear to auscultation, No Wheeze, Rales, Rhonchi Neuro: Positive: Other (unresponsive post VF arrest) Abdomen: Positive: Soft, Active Bowel Sounds Skin: Positive: Clear Extremities: Absent: edema - Telemetry EKG Rhythm: Sinus Rhythm
--- NOTE | 2017-05-07 21:29 | Progress Note ---
Assessment and Plan Assessment and plan: 46 YO Male with No PMH presents to ED for evaluation. Pt is unresponsive and unable to provide history. Pt history taken from ED staff and EMS. Pt was at work today and suddenly passed out around 1050 hrs-which was witnessed by patients coworkers. EMS notified, and upon arrival the patient was found to have V Fib. Pt treated IAW ACLS protocol. The patient was given 3 defibrillations, 2 rounds of epinephrine, Narcan, and a half amp of sodium bicarbonate. Pt found to be in respiratory distress and was intubated and placed on vent support. Cardiology team notified, and patient was taken urgently to [facility], and admitted to ICU. anoxic brain injury/anoxic encephalopathy/Persistent Vegetative State sp trache and PEG -awaiting insurance/medicare disability application for LTACH or SNF placement Acute Respiratory failure requiring MV >96 hours sp trache, vent dependent Anterior STEMI sp cardiac arrest with V fib Emergency cath protocol called upon arrival, we found 100% occlusion of the LAD in its prox-mid segment. Successful primari PCI-angioplasty and 3.0-3.5mm BM stents deployed. LAD flow restored-excellent result. continue medical management Aspiration PNA due to MRSA/Gram positive Sepsis completed course of abx cardiogenic Shock -now resolved Sepsis/Right lower lobe aspiration pneumonia, most likely due to gram-positive bacteria completed course of abx Hypokalemia repleted, Now resolved Hypernatremia/dehydration/free water deficit resolved with Free water replacement RUE DVT, likely due to PICC, PICC has been removed, was started on eliquis --Severe Protein calorie malnutrition: Peg feeds and nutrition suppliments Had family meeting on 05/05: family wants to continue full code and aggressive rx while they await neuro fup Disposition; possible transfer to LTAC/SNF Very difficult to place, secondary to no payor source The high probability of a clinically significant, sudden or life threatening deterioration of the [Pulmonary, cardiac, renal] system(s) required my full and direct attention, intervention and personal management. The aggregate critical care time was [65] minutes. This time is in addition to time spent performing reported procedures but includes the following: [x] Data Review and interpretation [x] Patient assessment and monitoring of vital signs [x] Documentation [x] Medication orders and management History Interval history: Patient is nonresponsive, lacks most reflexes, had fever, no vomiting, no agitation sister states that RUE is swollen Hospitalist Physical - Physical exam Narrative exam: General.: Comatose breathes over the vent HEENT: Moist mucous membranes, no LAD, Neck: supple Cardiac: S1-S2 heard Lungs: clear to auscultation bilaterally Abdomen: soft , nontender, nondistended, bowel sounds positive Extremities: RUE edema Skin: no rash or lesions Neurologic: Patient is in deep coma, has gag reflexs and corneal reflex , decerebrate posturing, pupils are fixed and non reactive, lacks all other reflexes, opens eyes spontaneously, no purposeful movement, does not obey commands - Constitutional Vitals: Temp Pulse Resp BP Pulse Ox 98.8 F 84 13 80/46 98 05/07/17 19:29 05/07/17 20:00 05/07/17 20:00 05/07/17 20:00 05/07/17 20:00 General appearance: Present: no acute distress, other (critically ill on vent) Results - Labs CBC & Chem 7: 05/01/17 05:30 05/01/17 05:30 Labs: Laboratory Last Values WBC 7.8 K/mm3 (4.5-11.0) 05/01/17 05:30 RBC 3.49 M/mm3 (3.65-5.03) L 05/01/17 05:30 Hgb 10.3 gm/dl (11.8-15.2) L 05/01/17 05:30 Hct 31.9 % (35.5-45.6) L 05/01/17 05:30 MCV 92 fl (84-94) 05/01/17 05:30 MCH 30 pg (28-32) 05/01/17 05:30 MCHC 32 % (32-34) 05/01/17 05:30 RDW 15.1 % (13.2-15.2) 05/01/17 05:30 Plt Count 280 K/mm3 (140-440) 05/01/17 05:30 Lymph % (Auto) 17.7 % (13.4-35.0) 05/01/17 05:30 [place] % (Auto) 8.1 % (0.0-7.3) H 05/01/17 05:30 Eos % (Auto) 2.5 % (0.0-4.3) 05/01/17 05:30 Baso % (Auto) 0.4 % (0.0-1.8) 05/01/17 05:30 Lymph # 1.4 K/mm3 (1.2-5.4) 05/01/17 05:30 [place] # 0.6 K/mm3 (0.0-0.8) 05/01/17 05:30 Eos # 0.2 K/mm3 (0.0-0.4) 05/01/17 05:30 Baso # 0.0 K/mm3 (0.0-0.1) 05/01/17 05:30 Add Manual Diff Complete 03/30/17 03:50 Total Counted 100 03/30/17 03:50 Seg Neutrophils % 71.3 % (40.0-70.0) H 05/01/17 05:30 Seg Neuts % (Manual) 65.0 % (40.0-70.0) 03/30/17 03:50 Band Neutrophils % 17.0 % 03/30/17 03:50 Lymphocytes % (Manual) 7.0 % (13.4-35.0) L 03/30/17 03:50 Reactive Lymphs % (Man) 0 % 03/30/17 03:50 Monocytes % (Manual) 7.0 % (0.0-7.3) 03/30/17 03:50 Eosinophils % (Manual) 0 % (0.0-4.3) 03/30/17 03:50 Basophils % (Manual) 0 % (0.0-1.8) 03/30/17 03:50 Metamyelocytes % 4.0 % 03/30/17 03:50 Myelocytes % 0 % 03/30/17 03:50 Promyelocytes % 0 % 03/30/17 03:50 Blast Cells % 0 % 03/30/17 03:50 Nucleated RBC % Not Reportable 03/30/17 03:50 Seg Neutrophils # 5.6 K/mm3 (1.8-7.7) 05/01/17 05:30 Seg Neutrophils # Man 12.7 K/mm3 (1.8-7.7) H 03/30/17 03:50 Band Neutrophils # 3.3 K/mm3 03/30/17 03:50 Lymphocytes # (Manual) 1.4 K/mm3 (1.2-5.4) 03/30/17 03:50 Abs React Lymphs (Man) 0.0 K/mm3 03/30/17 03:50 Monocytes # (Manual) 1.4 K/mm3 (0.0-0.8) H 03/30/17 03:50 Eosinophils # (Manual) 0.0 K/mm3 (0.0-0.4) 03/30/17 03:50 Basophils # (Manual) 0.0 K/mm3 (0.0-0.1) 03/30/17 03:50 Metamyelocytes # 0.8 K/mm3 03/30/17 03:50 Myelocytes # 0.0 K/mm3 03/30/17 03:50 Promyelocytes # 0.0 K/mm3 03/30/17 03:50 Blast Cells # 0.0 K/mm3 03/30/17 03:50 WBC Morphology Not Reportable 03/30/17 03:50 Hypersegmented Neuts Not Reportable 03/30/17 03:50 Hyposegmented Neuts Not Reportable 03/30/17 03:50 Hypogranular Neuts Not Reportable 03/30/17 03:50 Smudge Cells Not Reportable 03/30/17 03:50 Toxic Granulation Not Reportable 03/30/17 03:50 Toxic Vacuolation Not Reportable 03/30/17 03:50 Dohle Bodies Not Reportable 03/30/17 03:50 Pelger-Huet Anomaly Not Reportable 03/30/17 03:50 Sherry Rods Not Reportable 03/30/17 03:50 Platelet Estimate Appears normal 03/30/17 03:50 Clumped Platelets Not Reportable 03/30/17 03:50 Plt Clumps, EDTA Not Reportable 03/30/17 03:50 Large Platelets Not Reportable 03/30/17 03:50 Giant Platelets Not Reportable 03/30/17 03:50 Platelet Satelliting Not Reportable 03/30/17 03:50 Plt Morphology Comment Not Reportable 03/30/17 03:50 RBC Morphology Not Reportable 03/30/17 03:50 Dimorphic RBCs Not Reportable 03/30/17 03:50 Polychromasia Not Reportable 03/30/17 03:50 Hypochromasia Not Reportable 03/30/17 03:50 Poikilocytosis Not Reportable 03/30/17 03:50 Anisocytosis Few 03/30/17 03:50 Microcytosis Not Reportable 03/30/17 03:50 Macrocytosis Not Reportable 03/30/17 03:50 Spherocytes Not Reportable 03/30/17 03:50 Pappenheimer Bodies Not Reportable 03/30/17 03:50 Sickle Cells Not Reportable 03/30/17 03:50 Target Cells Not Reportable 03/30/17 03:50 Tear Drop Cells Not Reportable 03/30/17 03:50 Ovalocytes Not Reportable 03/30/17 03:50 Helmet Cells Not Reportable 03/30/17 03:50 [place] Bodies Not Reportable 03/30/17 03:50 [place] Rings Not Reportable 03/30/17 03:50 Nusrat Cells Not Reportable 03/30/17 03:50 Bite Cells Not Reportable 03/30/17 03:50 Crenated Cell Not Reportable 03/30/17 03:50 Elliptocytes Not Reportable 03/30/17 03:50 Acanthocytes (Spur) Not Reportable 03/30/17 03:50 Rouleaux Not Reportable 03/30/17 03:50 Hemoglobin C Crystals Not Reportable 03/30/17 03:50 Schistocytes Not Reportable 03/30/17 03:50 Malaria parasites Not Reportable 03/30/17 03:50 [place] Bodies Not Reportable 03/30/17 03:50 Hem Pathologist Commnt No 03/30/17 03:50 PT 14.9 Sec. (12.2-14.9) 04/10/17 04:16 INR 1.11 (0.87-1.13) 04/10/17 04:16 APTT 27.8 Sec. (24.2-36.6) 04/10/17 04:16 Activated Clotting Time 92 (74-137) 03/29/17 17:47 POC ABG pH 7.551 (7.35-7.45) H 04/30/17 18:20 POC ABG pCO2 32.7 (35-45) L 04/30/17 18:20 POC ABG pO2 101 (80-105) 04/30/17 18:20 POC ABG HCO3 28.7 04/30/17 18:20 POC ABG Total CO2 30 04/30/17 18:20 POC ABG O2 Sat 99 04/30/17 18:20 POC ABG Base Excess 6 04/30/17 18:20 FiO2 30 % 04/30/17 18:20 Sodium 136 mmol/L (137-145) L 05/01/17 05:30 Potassium 3.9 mmol/L (3.6-5.0) 05/01/17 05:30 Chloride 97.6 mmol/L (98-107) L 05/01/17 05:30 Carbon Dioxide 25 mmol/L (22-30) 05/01/17 05:30 Anion Gap 17 mmol/L 05/01/17 05:30 BUN 16 mg/dL (9-20) 05/01/17 05:30 Creatinine 0.2 mg/dL (0.8-1.5) L 05/01/17 05:30 Estimated GFR > 60 ml/min 05/01/17 05:30 BUN/Creatinine Ratio 80 % 05/01/17 05:30 Glucose 123 mg/dL (75-100) H 05/01/17 05:30 POC Glucose 125 (70-105) H 05/07/17 17:14 Calcium 8.9 mg/dL (8.4-10.2) 05/01/17 05:30 Phosphorus 3.50 mg/dL (2.5-4.5) 04/13/17 04:45 Magnesium 1.80 mg/dL (1.7-2.3) 05/01/17 05:30 Total Bilirubin 0.60 mg/dL (0.1-1.2) 05/01/17 05:30 Direct Bilirubin < 0.2 mg/dL (0-0.2) 04/27/17 05:40 Indirect Bilirubin 0.3 mg/dL 04/25/17 04:51 AST 71 units/L (5-40) H 05/01/17 05:30 ALT 125 units/L (7-56) H 05/01/17 05:30 Alkaline Phosphatase 158 units/L (35-129) H 05/01/17 05:30 Total Creatine Kinase 1404 units/L (55-170) H 04/12/17 21:36 CK-MB (CK-2) 8.0 ng/mL (0.0-4.0) H 04/12/17 21:36 CK-MB (CK-2) Rel Index 0.5 (0-4) 04/12/17 21:36 Troponin T 0.767 ng/mL (0.00-0.029) H* 04/12/17 21:36 C-Reactive Protein 21.80 mg/dL (0.00-1.30) H 03/30/17 16:04 Total Protein 6.7 g/dL (6.3-8.2) 05/01/17 05:30 Albumin 2.6 g/dL (3.9-5) L 05/01/17 05:30 Albumin/Globulin Ratio 0.6 % 05/01/17 05:30 Triglycerides 151 mg/dL (2-149) H 04/01/17 04:29 Cholesterol 164 mg/dL (50-199) 03/29/17 19:52 LDL Cholesterol Direct 81 mg/dL (50-130) 03/29/17 19:52 HDL Cholesterol 44 mg/dL (40-59) 03/29/17 19:52 Cholesterol/HDL Ratio 3.72 % 03/29/17 19:52 Urine Color [place] (Yellow) 04/21/17 22:00 Urine Turbidity Clear (Clear) 04/21/17 22:00 Urine pH 5.0 (5.0-7.0) 04/21/17 22:00 Ur Specific [place] 1.029 (1.003-1.030) 04/21/17 22:00 Urine Protein 30 mg/dl mg/dL (Negative) 04/21/17 22:00 Urine Glucose (UA) Neg mg/dL (Negative) 04/21/17 22:00 Urine Ketones Neg mg/dL (Negative) 04/21/17 22:00 Urine Blood Mod (Negative) 04/21/17 22:00 Urine Nitrite Neg (Negative) 04/21/17 22:00 Urine Bilirubin Neg (Negative) 04/21/17 22:00 Urine Urobilinogen 4.0 mg/dL (<2.0) 04/21/17 22:00 Ur Leukocyte Esterase Neg (Negative) 04/21/17 22:00 Urine WBC (Auto) 10.0 /HPF (0.0-6.0) H 04/21/17 22:00 Urine RBC (Auto) 44.0 /HPF (0.0-6.0) 04/21/17 22:00 U Epithel Cells (Auto) < 1.0 /HPF (0-13.0) 04/21/17 22:00 Amorphous Crystals 1+ 03/30/17 09:45 Urine Mucus 3+ /HPF 04/21/17 22:00 Urine Opiates Screen Presumptive negative 03/30/17 09:45 Urine Methadone Screen Presumptive negative 03/30/17 09:45 Ur Barbiturates Screen Presumptive negative 03/30/17 09:45 Ur Phencyclidine Scrn Presumptive negative 03/30/17 09:45 Ur Amphetamines Screen Presumptive positive 03/30/17 09:45 U Benzodiazepines Scrn Presumptive positive 03/30/17 09:45 Urine Cocaine Screen Presumptive negative 03/30/17 09:45 U Marijuana (THC) Screen Presumptive negative 03/30/17 09:45 Drugs of Abuse Note Disclamer 03/30/17 09:45 Miscellaneous Test Flexitest 1 H 04/25/17 07:07 Blood Type O POSITIVE 03/29/17 11:35 Antibody Screen Negative 03/29/17 11:35
[2017-05-08] MEDS: NOVOLOG SUB-Q SCH ×4 (01:00→18:30)
[2017-05-08] MEDS: ELIQUIS PO SCH ×2 (09:43→23:20)
[2017-05-08] MEDS: HEPARIN SUB-Q SCH (09:44)
[2017-05-08] MEDS: CORDARONE PO SCH ×2 (09:45→22:38)
[2017-05-08] MEDS: PROTONIX FEEDTUBE SCH (09:45)
[2017-05-08] MEDS: ASPIRIN PO SCH (09:45)
[2017-05-08] MEDS: PLAVIX PO SCH (09:45)
[2017-05-08] MEDS: LOPRESSOR PO SCH ×2 (09:45→22:39)
[2017-05-08] MEDS: ZESTRIL PO SCH (09:46)
--- NOTE | 2017-05-08 10:09 | Progress Note ---
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 1. Continue PSV trials as tolerated. 2. As per my partner, goal would be T-piece 17/10. Will need trach indefinitely given mental state. Will attempt 24 hour trial starting today. 3. Continue vent support and management 4. Continue all other cardiac meds 5. Overall prognosis still remains poor given amount of downtime during arrest. CCT 31 minutes. Subjective Date of service: 05/08/17 Principal diagnosis: coma,ARV,s/p arrest Interval history: No acute events. Mental status is unchanged. patient currently on AC. Patient did do PSV 12/29 on yesterday. Objective Vital Signs - 12hr 05/07/17 05/07/17 05/07/17 22:27 22:31 23:00 Temperature Pulse Rate 86 87 84 Respiratory 22 22 Rate Blood Pressure 88/44 88/44 87/45 O2 Sat by Pulse 96 97 Oximetry O2 Sat by Pulse Oximetry [ Assessment] 05/07/17 05/07/17 05/08/17 23:13 23:30 00:00 Temperature 100.5 F H Pulse Rate 85 87 85 Respiratory 22 21 23 Rate Blood Pressure 87/45 90/45 86/41 O2 Sat by Pulse 96 95 98 Oximetry O2 Sat by Pulse Oximetry [ Assessment] 05/08/17 05/08/17 05/08/17 00:30 01:00 01:30 Temperature Pulse Rate 91 H 82 81 Respiratory 16 22 22 Rate Blood Pressure 85/50 81/46 80/39 O2 Sat by Pulse 99 98 97 Oximetry O2 Sat by Pulse Oximetry [ Assessment] 05/08/17 05/08/17 05/08/17 02:00 02:30 03:00 Temperature Pulse Rate 85 86 89 Respiratory 21 16 24 Rate Blood Pressure 90/48 93/55 96/56 O2 Sat by Pulse 97 96 99 Oximetry O2 Sat by Pulse Oximetry [ Assessment] 05/08/17 05/08/17 05/08/17 03:30 03:54 04:00 Temperature 100.1 F H Pulse Rate 87 89 88 Respiratory 23 23 Rate Blood Pressure 91/45 91/45 92/47 O2 Sat by Pulse 96 96 97 Oximetry O2 Sat by Pulse 96 Oximetry [ Assessment] 05/08/17 05/08/17 05/08/17 04:30 05:00 05:30 Temperature Pulse Rate 89 86 87 Respiratory 19 24 18 Rate Blood Pressure 90/46 87/42 86/41 O2 Sat by Pulse 97 97 95 Oximetry O2 Sat by Pulse Oximetry [ Assessment] 05/08/17 05/08/17 05/08/17 06:00 06:30 07:00 Temperature Pulse Rate 90 87 90 Respiratory 23 22 23 Rate Blood Pressure 88/44 90/47 92/48 O2 Sat by Pulse 97 96 96 Oximetry O2 Sat by Pulse Oximetry [ Assessment] 05/08/17 05/08/17 05/08/17 07:30 08:00 08:30 Temperature 98.7 F Pulse Rate 89 91 H 91 H Respiratory 22 19 17 Rate Blood Pressure 92/49 98/48 90/48 O2 Sat by Pulse 97 97 96 Oximetry O2 Sat by Pulse Oximetry [ Assessment] 05/08/17 05/08/17 05/08/17 09:00 09:30 09:45 Temperature Pulse Rate 89 90 92 H Respiratory 22 21 Rate Blood Pressure 87/43 86/41 86/41 O2 Sat by Pulse 96 96 Oximetry O2 Sat by Pulse Oximetry [ Assessment] 05/08/17 09:46 Temperature Pulse Rate 92 H Respiratory Rate Blood Pressure 86/41 O2 Sat by Pulse Oximetry O2 Sat by Pulse Oximetry [ Assessment] Constitutional: no acute distress, other (awake on vent) Eyes: non-icteric ENT: oropharynx moist Neck: supple, no JVD, other (tracheotomy ) Effort: normal Ascultation: Bilateral: clear, diminished breath sounds, other (coarse BS bilaterally) Percussion: Bilateral: not dull Cardiovascular: regular rate and rhythm Gastrointestinal: normoactive bowel sounds, soft, non-tender, non-distended Integumentary: normal Extremities: no cyanosis, no edema, pink and warm Neurologic: unable to assess Psychiatric: other (eyes open spontaneously but does not follow any voice commands, otherwise nonresponsive except for pain) CBC and BMP: 05/01/17 05:30 05/01/17 05:30 ABG, PT/INR, D-dimer: ABG POC ABG pH 7.551 (7.35-7.45) H 04/30/17 18:20 POC ABG pCO2 32.7 (35-45) L 04/30/17 18:20 POC ABG pO2 101 (80-105) 04/30/17 18:20 POC ABG HCO3 28.7 04/30/17 18:20 POC ABG Total CO2 30 04/30/17 18:20 POC ABG O2 Sat 99 04/30/17 18:20 PT/INR, D-dimer PT 14.9 Sec. (12.2-14.9) 04/10/17 04:16 INR 1.11 (0.87-1.13) 04/10/17 04:16 Abnormal lab findings: Abnormal Labs 03/29/17 03/29/17 03/29/17 11:35 11:35 11:40 WBC RBC Hgb Hct MCV 98 H MCH 33 H Plt Count Lymph % (Auto) Gillespie % (Auto) Eos % (Auto) Baso % (Auto) Lymph # Baso # Seg Neutrophils % Lymphocytes % (Manual) Monocytes % (Manual) 9.0 H Nucleated RBC % 1.0 H Seg Neutrophils # Seg Neutrophils # Man Monocytes # (Manual) 0.9 H PT 15.8 H INR 1.20 H Activated Clotting Time POC ABG pH POC ABG pCO2 POC ABG pO2 Sodium Potassium 2.7 L* Chloride 95.3 L Carbon Dioxide 17 L BUN Creatinine Glucose 435 H POC Glucose Calcium Magnesium Direct Bilirubin AST ALT Alkaline Phosphatase Total Creatine Kinase CK-MB (CK-2) CK-MB (CK-2) Rel Index Troponin T C-Reactive Protein Total Protein 6.1 L Albumin 3.5 L Triglycerides Ur Specific Gray Urine WBC (Auto) Miscellaneous Test 03/29/17 03/29/17 03/29/17 12:34 13:10 13:25 WBC RBC Hgb Hct MCV MCH Plt Count Lymph % (Auto) Gillespie % (Auto) Eos % (Auto) Baso % (Auto) Lymph # Baso # Seg Neutrophils % Lymphocytes % (Manual) Monocytes % (Manual) Nucleated RBC % Seg Neutrophils # Seg Neutrophils # Man Monocytes # (Manual) PT INR Activated Clotting Time 142 H 169 H 175 H POC ABG pH POC ABG pCO2 POC ABG pO2 Sodium Potassium Chloride Carbon Dioxide BUN Creatinine Glucose POC Glucose Calcium Magnesium Direct Bilirubin AST ALT Alkaline Phosphatase Total Creatine Kinase CK-MB (CK-2) CK-MB (CK-2) Rel Index Troponin T C-Reactive Protein Total Protein Albumin Triglycerides Ur Specific Gray Urine WBC (Auto) Miscellaneous Test 03/29/17 03/29/17 03/29/17 14:50 15:18 19:52 WBC RBC Hgb Hct MCV MCH Plt Count Lymph % (Auto) Gillespie % (Auto) Eos % (Auto) Baso % (Auto) Lymph # Baso # Seg Neutrophils % Lymphocytes % (Manual) Monocytes % (Manual) Nucleated RBC % Seg Neutrophils # Seg Neutrophils # Man Monocytes # (Manual) PT INR Activated Clotting Time 175 H POC ABG pH 7.293 L POC ABG pCO2 POC ABG pO2 602 H Sodium Potassium Chloride Carbon Dioxide BUN Creatinine Glucose POC Glucose Calcium Magnesium Direct Bilirubin AST ALT Alkaline Phosphatase Total Creatine Kinase 7263 H CK-MB (CK-2) > 300.0 H CK-MB (CK-2) Rel Index 4.1 H Troponin T 8.080 H* D C-Reactive Protein Total Protein Albumin Triglycerides 195 H Ur Specific Gray Urine WBC (Auto) Miscellaneous Test 03/30/17 03/30/17 03/30/17 03:50 03:50 06:19 WBC 19.5 H RBC Hgb Hct MCV MCH Plt Count Lymph % (Auto) Gillespie % (Auto) Eos % (Auto) Baso % (Auto) Lymph # Baso # Seg Neutrophils % Lymphocytes % (Manual) 7.0 L Monocytes % (Manual) Nucleated RBC % Seg Neutrophils # Seg Neutrophils # Man 12.7 H Monocytes # (Manual) 1.4 H PT INR Activated Clotting Time POC ABG pH POC ABG pCO2 28.2 L POC ABG pO2 108 H Sodium Potassium Chloride 108.9 H Carbon Dioxide 15 L BUN 25 H Creatinine Glucose 158 H POC Glucose Calcium 8.1 L Magnesium Direct Bilirubin AST ALT Alkaline Phosphatase Total Creatine Kinase 7963 H CK-MB (CK-2) > 300.0 H CK-MB (CK-2) Rel Index Troponin T 6.850 H* C-Reactive Protein Total Protein Albumin Triglycerides Ur Specific Gray Urine WBC (Auto) Miscellaneous Test 03/30/17 03/30/17 03/31/17 09:45 16:04 02:19 WBC RBC Hgb Hct MCV MCH Plt Count Lymph % (Auto) Gillespie % (Auto) Eos % (Auto) Baso % (Auto) Lymph # Baso # Seg Neutrophils % Lymphocytes % (Manual) Monocytes % (Manual) Nucleated RBC % Seg Neutrophils # Seg Neutrophils # Man Monocytes # (Manual) PT INR Activated Clotting Time POC ABG pH POC ABG pCO2 POC ABG pO2 Sodium Potassium Chloride Carbon Dioxide BUN Creatinine Glucose POC Glucose 137 H Calcium Magnesium Direct Bilirubin AST ALT Alkaline Phosphatase Total Creatine Kinase CK-MB (CK-2) CK-MB (CK-2) Rel Index Troponin T C-Reactive Protein 21.80 H Total Protein Albumin Triglycerides Ur Specific Gray 1.031 H Urine WBC (Auto) Miscellaneous Test 03/31/17 03/31/17 03/31/17 03:57 06:54 09:22 WBC RBC Hgb Hct MCV MCH Plt Count Lymph % (Auto) Gillespie % (Auto) Eos % (Auto) Baso % (Auto) Lymph # Baso # Seg Neutrophils % Lymphocytes % (Manual) Monocytes % (Manual) Nucleated RBC % Seg Neutrophils # Seg Neutrophils # Man Monocytes # (Manual) PT INR Activated Clotting Time POC ABG pH 7.475 H POC ABG pCO2 25.4 L POC ABG pO2 62 L Sodium Potassium Chloride Carbon Dioxide 19 L BUN 22 H Creatinine 0.6 L Glucose 148 H POC Glucose 143 H Calcium 8.3 L Magnesium Direct Bilirubin AST ALT Alkaline Phosphatase Total Creatine Kinase CK-MB (CK-2) CK-MB (CK-2) Rel Index Troponin T C-Reactive Protein Total Protein Albumin Triglycerides Ur Specific Gray Urine WBC (Auto) Miscellaneous Test 03/31/17 03/31/17 03/31/17 11:40 17:47 23:38 WBC RBC Hgb Hct MCV MCH Plt Count Lymph % (Auto) Gillespie % (Auto) Eos % (Auto) Baso % (Auto) Lymph # Baso # Seg Neutrophils % Lymphocytes % (Manual) Monocytes % (Manual) Nucleated RBC % Seg Neutrophils # Seg Neutrophils # Man Monocytes # (Manual) PT INR Activated Clotting Time POC ABG pH POC ABG pCO2 POC ABG pO2 Sodium Potassium Chloride Carbon Dioxide BUN Creatinine Glucose POC Glucose 127 H 137 H 148 H Calcium Magnesium Direct Bilirubin AST ALT Alkaline Phosphatase Total Creatine Kinase CK-MB (CK-2) CK-MB (CK-2) Rel Index Troponin T C-Reactive Protein Total Protein Albumin Triglycerides Ur Specific Gray Urine WBC (Auto) Miscellaneous Test 04/01/17 04/01/17 04/01/17 04:29 05:01 11:54 WBC RBC Hgb Hct MCV MCH Plt Count Lymph % (Auto) Gillespie % (Auto) Eos % (Auto) Baso % (Auto) Lymph # Baso # Seg Neutrophils % Lymphocytes % (Manual) Monocytes % (Manual) Nucleated RBC % Seg Neutrophils # Seg Neutrophils # Man Monocytes # (Manual) PT INR Activated Clotting Time POC ABG pH 7.513 H POC ABG pCO2 22.1 L POC ABG pO2 64 L Sodium Potassium Chloride Carbon Dioxide BUN Creatinine Glucose POC Glucose 121 H Calcium Magnesium Direct Bilirubin AST ALT Alkaline Phosphatase Total Creatine Kinase CK-MB (CK-2) CK-MB (CK-2) Rel Index Troponin T C-Reactive Protein Total Protein Albumin Triglycerides 151 H Ur Specific Gray Urine WBC (Auto) Miscellaneous Test 04/01/17 04/02/17 04/02/17 18:17 00:11 04:52 WBC RBC Hgb Hct MCV MCH Plt Count Lymph % (Auto) Gillespie % (Auto) Eos % (Auto) Baso % (Auto) Lymph # Baso # Seg Neutrophils % Lymphocytes % (Manual) Monocytes % (Manual) Nucleated RBC % Seg Neutrophils # Seg Neutrophils # Man Monocytes # (Manual) PT INR Activated Clotting Time POC ABG pH 7.524 H POC ABG pCO2 25.5 L POC ABG pO2 66 L Sodium Potassium Chloride Carbon Dioxide BUN Creatinine Glucose POC Glucose 117 H 122 H Calcium Magnesium Direct Bilirubin AST ALT Alkaline Phosphatase Total Creatine Kinase CK-MB (CK-2) CK-MB (CK-2) Rel Index Troponin T C-Reactive Protein Total Protein Albumin Triglycerides Ur Specific Gray Urine WBC (Auto) Miscellaneous Test 04/02/17 04/02/17 04/02/17 05:18 10:41 12:19 WBC RBC Hgb Hct MCV MCH Plt Count Lymph % (Auto) Gillespie % (Auto) Eos % (Auto) Baso % (Auto) Lymph # Baso # Seg Neutrophils % Lymphocytes % (Manual) Monocytes % (Manual) Nucleated RBC % Seg Neutrophils # Seg Neutrophils # Man Monocytes # (Manual) PT INR Activated Clotting Time POC ABG pH 7.534 H POC ABG pCO2 27.4 L POC ABG pO2 Sodium Potassium Chloride Carbon Dioxide BUN Creatinine Glucose POC Glucose 132 H 129 H Calcium Magnesium Direct Bilirubin AST ALT Alkaline Phosphatase Total Creatine Kinase CK-MB (CK-2) CK-MB (CK-2) Rel Index Troponin T C-Reactive Protein Total Protein Albumin Triglycerides Ur Specific Gray Urine WBC (Auto) Miscellaneous Test 01/10/1104/03/17 04/03/17 18:05 00:08 05:09 WBC RBC Hgb Hct MCV MCH Plt Count Lymph % (Auto) Gillespie % (Auto) Eos % (Auto) Baso % (Auto) Lymph # Baso # Seg Neutrophils % Lymphocytes % (Manual) Monocytes % (Manual) Nucleated RBC % Seg Neutrophils # Seg Neutrophils # Man Monocytes # (Manual) PT INR Activated Clotting Time POC ABG pH 7.455 H POC ABG pCO2 33.2 L POC ABG pO2 120 H Sodium Potassium Chloride Carbon Dioxide BUN Creatinine Glucose POC Glucose 136 H 128 H Calcium Magnesium Direct Bilirubin AST ALT Alkaline Phosphatase Total Creatine Kinase CK-MB (CK-2) CK-MB (CK-2) Rel Index Troponin T C-Reactive Protein Total Protein Albumin Triglycerides Ur Specific Gray Urine WBC (Auto) Miscellaneous Test 04/03/17 04/03/17 04/03/17 06:32 11:54 12:16 WBC 11.9 H RBC Hgb Hct MCV MCH Plt Count 125 L Lymph % (Auto) 4.8 L Gillespie % (Auto) Eos % (Auto) Baso % (Auto) Lymph # 0.6 L Baso # Seg Neutrophils % 86.7 H Lymphocytes % (Manual) Monocytes % (Manual) Nucleated RBC % Seg Neutrophils # 10.3 H Seg Neutrophils # Man Monocytes # (Manual) PT INR Activated Clotting Time POC ABG pH POC ABG pCO2 POC ABG pO2 Sodium Potassium Chloride Carbon Dioxide BUN Creatinine Glucose POC Glucose 138 H 143 H Calcium Magnesium Direct Bilirubin AST ALT Alkaline Phosphatase Total Creatine Kinase CK-MB (CK-2) CK-MB (CK-2) Rel Index Troponin T C-Reactive Protein Total Protein Albumin Triglycerides Ur Specific Gray Urine WBC (Auto) Miscellaneous Test 04/03/17 04/03/17 04/04/17 17:33 23:59 04:34 WBC RBC Hgb Hct MCV MCH Plt Count Lymph % (Auto) Gillespie % (Auto) Eos % (Auto) Baso % (Auto) Lymph # Baso # Seg Neutrophils % Lymphocytes % (Manual) Monocytes % (Manual) Nucleated RBC % Seg Neutrophils # Seg Neutrophils # Man Monocytes # (Manual) PT INR Activated Clotting Time POC ABG pH 7.457 H POC ABG pCO2 29.8 L POC ABG pO2 76 L Sodium Potassium Chloride Carbon Dioxide BUN Creatinine Glucose POC Glucose 130 H 155 H Calcium Magnesium Direct Bilirubin AST ALT Alkaline Phosphatase Total Creatine Kinase CK-MB (CK-2) CK-MB (CK-2) Rel Index Troponin T C-Reactive Protein Total Protein Albumin Triglycerides Ur Specific Gray Urine WBC (Auto) Miscellaneous Test 04/04/17 04/04/17 04/04/17 05:27 12:22 18:18 WBC RBC Hgb Hct MCV MCH Plt Count Lymph % (Auto) Gillespie % (Auto) Eos % (Auto) Baso % (Auto) Lymph # Baso # Seg Neutrophils % Lymphocytes % (Manual) Monocytes % (Manual) Nucleated RBC % Seg Neutrophils # Seg Neutrophils # Man Monocytes # (Manual) PT INR Activated Clotting Time POC ABG pH POC ABG pCO2 POC ABG pO2 Sodium Potassium Chloride Carbon Dioxide BUN Creatinine Glucose POC Glucose 164 H 146 H 130 H Calcium Magnesium Direct Bilirubin AST ALT Alkaline Phosphatase Total Creatine Kinase CK-MB (CK-2) CK-MB (CK-2) Rel Index Troponin T C-Reactive Protein Total Protein Albumin Triglycerides Ur Specific Gray Urine WBC (Auto) Miscellaneous Test 04/05/17 04/05/17 04/05/17 04:43 05:28 11:36 WBC RBC Hgb Hct MCV MCH Plt Count Lymph % (Auto) Gillespie % (Auto) Eos % (Auto) Baso % (Auto) Lymph # Baso # Seg Neutrophils % Lymphocytes % (Manual) Monocytes % (Manual) Nucleated RBC % Seg Neutrophils # Seg Neutrophils # Man Monocytes # (Manual) PT INR Activated Clotting Time POC ABG pH 7.479 H POC ABG pCO2 33.5 L POC ABG pO2 76 L Sodium Potassium Chloride Carbon Dioxide BUN Creatinine Glucose POC Glucose 145 H 136 H Calcium Magnesium Direct Bilirubin AST ALT Alkaline Phosphatase Total Creatine Kinase CK-MB (CK-2) CK-MB (CK-2) Rel Index Troponin T C-Reactive Protein Total Protein Albumin Triglycerides Ur Specific Gray Urine WBC (Auto) Miscellaneous Test 04/05/17 04/06/17 04/06/17 17:58 00:16 05:26 WBC RBC Hgb Hct MCV MCH Plt Count Lymph % (Auto) Gillespie % (Auto) Eos % (Auto) Baso % (Auto) Lymph # Baso # Seg Neutrophils % Lymphocytes % (Manual) Monocytes % (Manual) Nucleated RBC % Seg Neutrophils # Seg Neutrophils # Man Monocytes # (Manual) PT INR Activated Clotting Time POC ABG pH POC ABG pCO2 POC ABG pO2 Sodium Potassium Chloride Carbon Dioxide BUN Creatinine Glucose POC Glucose 130 H 159 H 146 H Calcium Magnesium Direct Bilirubin AST ALT Alkaline Phosphatase Total Creatine Kinase CK-MB (CK-2) CK-MB (CK-2) Rel Index Troponin T C-Reactive Protein Total Protein Albumin Triglycerides Ur Specific Gray Urine WBC (Auto) Miscellaneous Test 04/06/17 04/06/17 04/07/17 13:11 16:54 11:45 WBC RBC Hgb Hct MCV MCH Plt Count Lymph % (Auto) Gillespie % (Auto) Eos % (Auto) Baso % (Auto) Lymph # Baso # Seg Neutrophils % Lymphocytes % (Manual) Monocytes % (Manual) Nucleated RBC % Seg Neutrophils # Seg Neutrophils # Man Monocytes # (Manual) PT INR Activated Clotting Time POC ABG pH 7.517 H POC ABG pCO2 32.1 L POC ABG pO2 Sodium Potassium Chloride Carbon Dioxide BUN Creatinine Glucose POC Glucose 132 H 123 H Calcium Magnesium Direct Bilirubin AST ALT Alkaline Phosphatase Total Creatine Kinase CK-MB (CK-2) CK-MB (CK-2) Rel Index Troponin T C-Reactive Protein Total Protein Albumin Triglycerides Ur Specific Gray Urine WBC (Auto) Miscellaneous Test 04/07/17 04/07/17 04/07/17 12:51 17:40 23:55 WBC RBC Hgb Hct MCV MCH Plt Count Lymph % (Auto) Gillespie % (Auto) Eos % (Auto) Baso % (Auto) Lymph # Baso # Seg Neutrophils % Lymphocytes % (Manual) Monocytes % (Manual) Nucleated RBC % Seg Neutrophils # Seg Neutrophils # Man Monocytes # (Manual) PT INR Activated Clotting Time POC ABG pH POC ABG pCO2 POC ABG pO2 Sodium Potassium Chloride Carbon Dioxide BUN Creatinine Glucose POC Glucose 138 H 154 H 143 H Calcium Magnesium Direct Bilirubin AST ALT Alkaline Phosphatase Total Creatine Kinase CK-MB (CK-2) CK-MB (CK-2) Rel Index Troponin T C-Reactive Protein Total Protein Albumin Triglycerides Ur Specific Gray Urine WBC (Auto) Miscellaneous Test 04/08/17 04/08/17 04/08/17 05:27 11:14 17:44 WBC RBC Hgb Hct MCV MCH Plt Count Lymph % (Auto) Gillespie % (Auto) Eos % (Auto) Baso % (Auto) Lymph # Baso # Seg Neutrophils % Lymphocytes % (Manual) Monocytes % (Manual) Nucleated RBC % Seg Neutrophils # Seg Neutrophils # Man Monocytes # (Manual) PT INR Activated Clotting Time POC ABG pH POC ABG pCO2 POC ABG pO2 Sodium Potassium Chloride Carbon Dioxide BUN Creatinine Glucose POC Glucose 142 H 153 H 129 H Calcium Magnesium Direct Bilirubin AST ALT Alkaline Phosphatase Total Creatine Kinase CK-MB (CK-2) CK-MB (CK-2) Rel Index Troponin T C-Reactive Protein Total Protein Albumin Triglycerides Ur Specific Gray Urine WBC (Auto) Miscellaneous Test 04/09/17 04/09/17 04/09/17 08:20 11:21 17:37 WBC RBC Hgb Hct MCV MCH Plt Count Lymph % (Auto) Gillespie % (Auto) Eos % (Auto) Baso % (Auto) Lymph # Baso # Seg Neutrophils % Lymphocytes % (Manual) Monocytes % (Manual) Nucleated RBC % Seg Neutrophils # Seg Neutrophils # Man Monocytes # (Manual) PT INR Activated Clotting Time POC ABG pH POC ABG pCO2 POC ABG pO2 Sodium 147 H Potassium Chloride 108.8 H Carbon Dioxide BUN 39 H Creatinine 0.5 L Glucose 138 H POC Glucose 152 H 109 H Calcium Magnesium Direct Bilirubin AST ALT Alkaline Phosphatase Total Creatine Kinase CK-MB (CK-2) CK-MB (CK-2) Rel Index Troponin T C-Reactive Protein Total Protein Albumin Triglycerides Ur Specific Gray Urine WBC (Auto) Miscellaneous Test 04/10/17 04/10/17 04/10/17 00:13 04:16 04:16 WBC RBC Hgb 11.5 L Hct MCV 96 H MCH Plt Count 103 L Lymph % (Auto) 11.1 L Gillespie % (Auto) Eos % (Auto) Baso % (Auto) Lymph # Baso # Seg Neutrophils % 81.5 H Lymphocytes % (Manual) Monocytes % (Manual) Nucleated RBC % Seg Neutrophils # 8.8 H Seg Neutrophils # Man Monocytes # (Manual) PT INR Activated Clotting Time POC ABG pH POC ABG pCO2 POC ABG pO2 Sodium 148 H Potassium Chloride 109.0 H Carbon Dioxide BUN 36 H Creatinine 0.5 L Glucose 131 H POC Glucose 127 H Calcium 8.1 L Magnesium 2.40 H Direct Bilirubin AST 206 H ALT 228 H Alkaline Phosphatase 178 H Total Creatine Kinase CK-MB (CK-2) CK-MB (CK-2) Rel Index Troponin T C-Reactive Protein Total Protein Albumin 2.8 L Triglycerides Ur Specific Gray Urine WBC (Auto) Miscellaneous Test 04/10/17 04/10/17 04/10/17 06:01 11:57 18:27 WBC RBC Hgb Hct MCV MCH Plt Count Lymph % (Auto) Gillespie % (Auto) Eos % (Auto) Baso % (Auto) Lymph # Baso # Seg Neutrophils % Lymphocytes % (Manual) Monocytes % (Manual) Nucleated RBC % Seg Neutrophils # Seg Neutrophils # Man Monocytes # (Manual) PT INR Activated Clotting Time POC ABG pH POC ABG pCO2 POC ABG pO2 Sodium Potassium Chloride Carbon Dioxide BUN Creatinine Glucose POC Glucose 108 H 154 H 130 H Calcium Magnesium Direct Bilirubin AST ALT Alkaline Phosphatase Total Creatine Kinase CK-MB (CK-2) CK-MB (CK-2) Rel Index Troponin T C-Reactive Protein Total Protein Albumin Triglycerides Ur Specific Gray Urine WBC (Auto) Miscellaneous Test 04/11/17 04/11/17 04/12/17 12:25 17:10 00:22 WBC RBC Hgb Hct MCV MCH Plt Count Lymph % (Auto) Gillespie % (Auto) Eos % (Auto) Baso % (Auto) Lymph # Baso # Seg Neutrophils % Lymphocytes % (Manual) Monocytes % (Manual) Nucleated RBC % Seg Neutrophils # Seg Neutrophils # Man Monocytes # (Manual) PT INR Activated Clotting Time POC ABG pH POC ABG pCO2 POC ABG pO2 Sodium Potassium Chloride Carbon Dioxide BUN Creatinine Glucose POC Glucose 107 H 129 H 128 H Calcium Magnesium Direct Bilirubin AST ALT Alkaline Phosphatase Total Creatine Kinase CK-MB (CK-2) CK-MB (CK-2) Rel Index Troponin T C-Reactive Protein Total Protein Albumin Triglycerides Ur Specific Gray Urine WBC (Auto) Miscellaneous Test 04/12/17 04/12/17 04/12/17 05:00 11:57 17:47 WBC RBC Hgb Hct MCV MCH Plt Count Lymph % (Auto) Gillespie % (Auto) Eos % (Auto) Baso % (Auto) Lymph # Baso # Seg Neutrophils % Lymphocytes % (Manual) Monocytes % (Manual) Nucleated RBC % Seg Neutrophils # Seg Neutrophils # Man Monocytes # (Manual) PT INR Activated Clotting Time POC ABG pH POC ABG pCO2 POC ABG pO2 Sodium Potassium Chloride Carbon Dioxide BUN Creatinine Glucose POC Glucose 140 H 142 H Calcium Magnesium Direct Bilirubin AST 158 H ALT 184 H Alkaline Phosphatase 170 H Total Creatine Kinase CK-MB (CK-2) CK-MB (CK-2) Rel Index Troponin T C-Reactive Protein Total Protein Albumin 2.8 L Triglycerides Ur Specific Gray Urine WBC (Auto) Miscellaneous Test 04/12/17 04/12/17 04/13/17 21:36 21:36 01:37 WBC RBC Hgb Hct MCV MCH Plt Count Lymph % (Auto) Gillespie % (Auto) Eos % (Auto) Baso % (Auto) Lymph # Baso # Seg Neutrophils % Lymphocytes % (Manual) Monocytes % (Manual) Nucleated RBC % Seg Neutrophils # Seg Neutrophils # Man Monocytes # (Manual) PT INR Activated Clotting Time POC ABG pH POC ABG pCO2 POC ABG pO2 Sodium Potassium Chloride Carbon Dioxide BUN Creatinine Glucose POC Glucose 126 H Calcium Magnesium Direct Bilirubin AST ALT Alkaline Phosphatase Total Creatine Kinase 1404 H CK-MB (CK-2) 8.0 H CK-MB (CK-2) Rel Index Troponin T 0.767 H* C-Reactive Protein Total Protein Albumin Triglycerides Ur Specific Gray Urine WBC (Auto) Miscellaneous Test 04/13/17 04/13/17 04/13/17 04:45 04:52 12:17 WBC RBC Hgb Hct MCV MCH Plt Count Lymph % (Auto) Gillespie % (Auto) Eos % (Auto) Baso % (Auto) Lymph # Baso # Seg Neutrophils % Lymphocytes % (Manual) Monocytes % (Manual) Nucleated RBC % Seg Neutrophils # Seg Neutrophils # Man Monocytes # (Manual) PT INR Activated Clotting Time POC ABG pH POC ABG pCO2 POC ABG pO2 Sodium 148 H Potassium Chloride 112.8 H Carbon Dioxide BUN 33 H Creatinine 0.4 L Glucose 121 H POC Glucose 126 H 149 H Calcium Magnesium Direct Bilirubin AST 160 H ALT 189 H Alkaline Phosphatase 166 H Total Creatine Kinase CK-MB (CK-2) CK-MB (CK-2) Rel Index Troponin T C-Reactive Protein Total Protein Albumin 2.6 L Triglycerides Ur Specific Gray Urine WBC (Auto) Miscellaneous Test 04/13/17 04/14/17 04/14/17 17:45 00:20 00:45 WBC RBC Hgb Hct MCV MCH Plt Count Lymph % (Auto) Gillespie % (Auto) Eos % (Auto) Baso % (Auto) Lymph # Baso # Seg Neutrophils % Lymphocytes % (Manual) Monocytes % (Manual) Nucleated RBC % Seg Neutrophils # Seg Neutrophils # Man Monocytes # (Manual) PT INR Activated Clotting Time POC ABG pH POC ABG pCO2 POC ABG pO2 Sodium Potassium Chloride Carbon Dioxide BUN Creatinine Glucose POC Glucose 130 H 144 H 144 H Calcium Magnesium Direct Bilirubin AST ALT Alkaline Phosphatase Total Creatine Kinase CK-MB (CK-2) CK-MB (CK-2) Rel Index Troponin T C-Reactive Protein Total Protein Albumin Triglycerides Ur Specific Gray Urine WBC (Auto) Miscellaneous Test 04/14/17 04/14/17 04/14/17 05:40 11:06 11:31 WBC RBC Hgb Hct MCV MCH Plt Count Lymph % (Auto) Gillespie % (Auto) Eos % (Auto) Baso % (Auto) Lymph # Baso # Seg Neutrophils % Lymphocytes % (Manual) Monocytes % (Manual) Nucleated RBC % Seg Neutrophils # Seg Neutrophils # Man Monocytes # (Manual) PT INR Activated Clotting Time POC ABG pH POC ABG pCO2 POC ABG pO2 Sodium Potassium Chloride Carbon Dioxide BUN Creatinine Glucose POC Glucose 139 H 123 H Calcium Magnesium Direct Bilirubin AST ALT Alkaline Phosphatase Total Creatine Kinase CK-MB (CK-2) CK-MB (CK-2) Rel Index Troponin T C-Reactive Protein Total Protein Albumin Triglycerides Ur Specific Gray 1.033 H Urine WBC (Auto) > 182.0 H Miscellaneous Test 04/14/17 04/14/17 04/15/17 18:00 23:52 05:15 WBC 12.5 H RBC 3.38 L Hgb 10.6 L Hct 32.7 L MCV 97 H MCH Plt Count 107 L Lymph % (Auto) 8.7 L Gillespie % (Auto) Eos % (Auto) Baso % (Auto) Lymph # 1.1 L Baso # Seg Neutrophils % 86.1 H Lymphocytes % (Manual) Monocytes % (Manual) Nucleated RBC % Seg Neutrophils # 10.7 H Seg Neutrophils # Man Monocytes # (Manual) PT INR Activated Clotting Time POC ABG pH POC ABG pCO2 POC ABG pO2 Sodium Potassium Chloride Carbon Dioxide BUN Creatinine Glucose POC Glucose 133 H 133 H Calcium Magnesium Direct Bilirubin AST ALT Alkaline Phosphatase Total Creatine Kinase CK-MB (CK-2) CK-MB (CK-2) Rel Index Troponin T C-Reactive Protein Total Protein Albumin Triglycerides Ur Specific Gray Urine WBC (Auto) Miscellaneous Test 04/15/17 04/15/17 04/15/17 05:15 05:25 11:50 WBC RBC Hgb Hct MCV MCH Plt Count Lymph % (Auto) Gillespie % (Auto) Eos % (Auto) Baso % (Auto) Lymph # Baso # Seg Neutrophils % Lymphocytes % (Manual) Monocytes % (Manual) Nucleated RBC % Seg Neutrophils # Seg Neutrophils # Man Monocytes # (Manual) PT INR Activated Clotting Time POC ABG pH POC ABG pCO2 POC ABG pO2 Sodium 149 H Potassium 3.5 L Chloride 114.1 H Carbon Dioxide 21 L BUN 29 H Creatinine 0.4 L Glucose 128 H POC Glucose 133 H 107 H Calcium 8.3 L Magnesium Direct Bilirubin 0.4 H AST 149 H ALT 182 H Alkaline Phosphatase 143 H Total Creatine Kinase CK-MB (CK-2) CK-MB (CK-2) Rel Index Troponin T C-Reactive Protein Total Protein Albumin 2.5 L Triglycerides Ur Specific Gray Urine WBC (Auto) Miscellaneous Test 04/15/17 04/16/17 04/16/17 16:55 00:02 03:17 WBC RBC 3.39 L Hgb 10.5 L Hct 32.4 L MCV 96 H MCH Plt Count 106 L Lymph % (Auto) 6.7 L Gillespie % (Auto) Eos % (Auto) Baso % (Auto) Lymph # 0.6 L Baso # Seg Neutrophils % 86.8 H Lymphocytes % (Manual) Monocytes % (Manual) Nucleated RBC % Seg Neutrophils # 8.2 H Seg Neutrophils # Man Monocytes # (Manual) PT INR Activated Clotting Time POC ABG pH POC ABG pCO2 POC ABG pO2 Sodium Potassium Chloride Carbon Dioxide BUN Creatinine Glucose POC Glucose 146 H 148 H Calcium Magnesium Direct Bilirubin AST ALT Alkaline Phosphatase Total Creatine Kinase CK-MB (CK-2) CK-MB (CK-2) Rel Index Troponin T C-Reactive Protein Total Protein Albumin Triglycerides Ur Specific Gray Urine WBC (Auto) Miscellaneous Test 04/16/17 04/16/17 04/16/17 03:17 05:19 11:13 WBC RBC Hgb Hct MCV MCH Plt Count Lymph % (Auto) Gillespie % (Auto) Eos % (Auto) Baso % (Auto) Lymph # Baso # Seg Neutrophils % Lymphocytes % (Manual) Monocytes % (Manual) Nucleated RBC % Seg Neutrophils # Seg Neutrophils # Man Monocytes # (Manual) PT INR Activated Clotting Time POC ABG pH POC ABG pCO2 POC ABG pO2 Sodium 149 H Potassium Chloride 111.1 H Carbon Dioxide 20 L BUN 27 H Creatinine 0.3 L Glucose 156 H POC Glucose 171 H 169 H Calcium 8.3 L Magnesium Direct Bilirubin AST ALT Alkaline Phosphatase Total Creatine Kinase CK-MB (CK-2) CK-MB (CK-2) Rel Index Troponin T C-Reactive Protein Total Protein Albumin Triglycerides Ur Specific Gray Urine WBC (Auto) Miscellaneous Test 04/16/17 04/17/17 04/17/17 17:03 00:00 05:09 WBC RBC Hgb Hct MCV MCH Plt Count Lymph % (Auto) Gillespie % (Auto) Eos % (Auto) Baso % (Auto) Lymph # Baso # Seg Neutrophils % Lymphocytes % (Manual) Monocytes % (Manual) Nucleated RBC % Seg Neutrophils # Seg Neutrophils # Man Monocytes # (Manual) PT INR Activated Clotting Time POC ABG pH POC ABG pCO2 POC ABG pO2 Sodium Potassium Chloride Carbon Dioxide BUN Creatinine Glucose POC Glucose 151 H 165 H 145 H Calcium Magnesium Direct Bilirubin AST ALT Alkaline Phosphatase Total Creatine Kinase CK-MB (CK-2) CK-MB (CK-2) Rel Index Troponin T C-Reactive Protein Total Protein Albumin Triglycerides Ur Specific Gray Urine WBC (Auto) Miscellaneous Test 04/17/17 04/17/17 04/18/17 11:38 17:47 00:01 WBC RBC Hgb Hct MCV MCH Plt Count Lymph % (Auto) Gillespie % (Auto) Eos % (Auto) Baso % (Auto) Lymph # Baso # Seg Neutrophils % Lymphocytes % (Manual) Monocytes % (Manual) Nucleated RBC % Seg Neutrophils # Seg Neutrophils # Man Monocytes # (Manual) PT INR Activated Clotting Time POC ABG pH POC ABG pCO2 POC ABG pO2 Sodium Potassium Chloride Carbon Dioxide BUN Creatinine Glucose POC Glucose 170 H 161 H 131 H Calcium Magnesium Direct Bilirubin AST ALT Alkaline Phosphatase Total Creatine Kinase CK-MB (CK-2) CK-MB (CK-2) Rel Index Troponin T C-Reactive Protein Total Protein Albumin Triglycerides Ur Specific Gray Urine WBC (Auto) Miscellaneous Test 04/18/17 04/18/17 04/18/17 03:55 03:55 05:30 WBC RBC 3.05 L Hgb 9.8 L Hct 29.0 L MCV 95 H MCH Plt Count 113 L Lymph % (Auto) Gillespie % (Auto) Eos % (Auto) 5.3 H Baso % (Auto) Lymph # Baso # Seg Neutrophils % 71.5 H Lymphocytes % (Manual) Monocytes % (Manual) Nucleated RBC % Seg Neutrophils # Seg Neutrophils # Man Monocytes # (Manual) PT INR Activated Clotting Time POC ABG pH 7.460 H POC ABG pCO2 30.8 L POC ABG pO2 129 H Sodium Potassium Chloride Carbon Dioxide 21 L BUN 25 H Creatinine 0.4 L Glucose 123 H POC Glucose Calcium 8.3 L Magnesium Direct Bilirubin AST ALT Alkaline Phosphatase Total Creatine Kinase CK-MB (CK-2) CK-MB (CK-2) Rel Index Troponin T C-Reactive Protein Total Protein Albumin Triglycerides Ur Specific Gray Urine WBC (Auto) Miscellaneous Test 04/18/17 04/18/17 04/19/17 17:10 23:40 04:36 WBC RBC 3.21 L Hgb 10.2 L Hct 30.4 L MCV 95 H MCH Plt Count 131 L Lymph % (Auto) 12.1 L Gillespie % (Auto) Eos % (Auto) 4.7 H Baso % (Auto) 2.4 H Lymph # 0.9 L Baso # 0.2 H Seg Neutrophils % 75.0 H Lymphocytes % (Manual) Monocytes % (Manual) Nucleated RBC % Seg Neutrophils # Seg Neutrophils # Man Monocytes # (Manual) PT INR Activated Clotting Time POC ABG pH POC ABG pCO2 POC ABG pO2 Sodium Potassium Chloride Carbon Dioxide BUN Creatinine Glucose POC Glucose 135 H 157 H Calcium Magnesium Direct Bilirubin AST ALT Alkaline Phosphatase Total Creatine Kinase CK-MB (CK-2) CK-MB (CK-2) Rel Index Troponin T C-Reactive Protein Total Protein Albumin Triglycerides Ur Specific Gray Urine WBC (Auto) Miscellaneous Test 04/19/17 04/19/17 04/19/17 04:36 05:12 06:50 WBC RBC Hgb Hct MCV MCH Plt Count Lymph % (Auto) Gillespie % (Auto) Eos % (Auto) Baso % (Auto) Lymph # Baso # Seg Neutrophils % Lymphocytes % (Manual) Monocytes % (Manual) Nucleated RBC % Seg Neutrophils # Seg Neutrophils # Man Monocytes # (Manual) PT INR Activated Clotting Time POC ABG pH 7.516 H POC ABG pCO2 28.0 L POC ABG pO2 Sodium Potassium Chloride Carbon Dioxide 21 L BUN 23 H Creatinine 0.2 L Glucose 137 H POC Glucose 131 H Calcium 7.9 L Magnesium Direct Bilirubin AST ALT Alkaline Phosphatase Total Creatine Kinase CK-MB (CK-2) CK-MB (CK-2) Rel Index Troponin T C-Reactive Protein Total Protein Albumin Triglycerides Ur Specific Gray Urine WBC (Auto) Miscellaneous Test 04/19/17 04/19/17 04/20/17 12:36 17:42 00:12 WBC RBC Hgb Hct MCV MCH Plt Count Lymph % (Auto) Gillespie % (Auto) Eos % (Auto) Baso % (Auto) Lymph # Baso # Seg Neutrophils % Lymphocytes % (Manual) Monocytes % (Manual) Nucleated RBC % Seg Neutrophils # Seg Neutrophils # Man Monocytes # (Manual) PT INR Activated Clotting Time POC ABG pH POC ABG pCO2 POC ABG pO2 Sodium Potassium Chloride Carbon Dioxide BUN Creatinine Glucose POC Glucose 128 H 140 H 132 H Calcium Magnesium Direct Bilirubin AST ALT Alkaline Phosphatase Total Creatine Kinase CK-MB (CK-2) CK-MB (CK-2) Rel Index Troponin T C-Reactive Protein Total Protein Albumin Triglycerides Ur Specific Gray Urine WBC (Auto) Miscellaneous Test 04/20/17 04/20/17 04/20/17 03:35 03:35 05:10 WBC RBC 3.34 L Hgb 10.4 L Hct 31.6 L MCV 95 H MCH Plt Count Lymph % (Auto) 12.9 L Gillespie % (Auto) Eos % (Auto) Baso % (Auto) Lymph # Baso # Seg Neutrophils % 77.3 H Lymphocytes % (Manual) Monocytes % (Manual) Nucleated RBC % Seg Neutrophils # Seg Neutrophils # Man Monocytes # (Manual) PT INR Activated Clotting Time POC ABG pH POC ABG pCO2 POC ABG pO2 Sodium Potassium Chloride Carbon Dioxide BUN Creatinine 0.3 L Glucose 155 H POC Glucose 135 H Calcium 7.8 L Magnesium Direct Bilirubin AST ALT Alkaline Phosphatase Total Creatine Kinase CK-MB (CK-2) CK-MB (CK-2) Rel Index Troponin T C-Reactive Protein Total Protein Albumin Triglycerides Ur Specific Gray Urine WBC (Auto) Miscellaneous Test 04/20/17 04/20/17 04/21/17 12:49 18:21 00:05 WBC RBC Hgb Hct MCV MCH Plt Count Lymph % (Auto) Gillespie % (Auto) Eos % (Auto) Baso % (Auto) Lymph # Baso # Seg Neutrophils % Lymphocytes % (Manual) Monocytes % (Manual) Nucleated RBC % Seg Neutrophils # Seg Neutrophils # Man Monocytes # (Manual) PT INR Activated Clotting Time POC ABG pH POC ABG pCO2 POC ABG pO2 Sodium Potassium Chloride Carbon Dioxide BUN Creatinine Glucose POC Glucose 155 H 165 H 141 H Calcium Magnesium Direct Bilirubin AST ALT Alkaline Phosphatase Total Creatine Kinase CK-MB (CK-2) CK-MB (CK-2) Rel Index Troponin T C-Reactive Protein Total Protein Albumin Triglycerides Ur Specific Gray Urine WBC (Auto) Miscellaneous Test 04/21/17 04/21/17 04/21/17 06:00 12:11 17:04 WBC RBC Hgb Hct MCV MCH Plt Count Lymph % (Auto) Gillespie % (Auto) Eos % (Auto) Baso % (Auto) Lymph # Baso # Seg Neutrophils % Lymphocytes % (Manual) Monocytes % (Manual) Nucleated RBC % Seg Neutrophils # Seg Neutrophils # Man Monocytes # (Manual) PT INR Activated Clotting Time POC ABG pH POC ABG pCO2 POC ABG pO2 Sodium Potassium Chloride Carbon Dioxide BUN Creatinine Glucose POC Glucose 152 H 165 H 156 H Calcium Magnesium Direct Bilirubin AST ALT Alkaline Phosphatase Total Creatine Kinase CK-MB (CK-2) CK-MB (CK-2) Rel Index Troponin T C-Reactive Protein Total Protein Albumin Triglycerides Ur Specific Gray Urine WBC (Auto) Miscellaneous Test 04/21/17 04/21/17 04/22/17 22:00 23:59 05:49 WBC RBC Hgb Hct MCV MCH Plt Count Lymph % (Auto) Gillespie % (Auto) Eos % (Auto) Baso % (Auto) Lymph # Baso # Seg Neutrophils % Lymphocytes % (Manual) Monocytes % (Manual) Nucleated RBC % Seg Neutrophils # Seg Neutrophils # Man Monocytes # (Manual) PT INR Activated Clotting Time POC ABG pH POC ABG pCO2 POC ABG pO2 Sodium Potassium Chloride Carbon Dioxide BUN Creatinine Glucose POC Glucose 166 H 173 H Calcium Magnesium Direct Bilirubin AST ALT Alkaline Phosphatase Total Creatine Kinase CK-MB (CK-2) CK-MB (CK-2) Rel Index Troponin T C-Reactive Protein Total Protein Albumin Triglycerides Ur Specific Gray Urine WBC (Auto) 10.0 H Miscellaneous Test 04/22/17 04/22/17 04/23/17 11:11 18:04 00:37 WBC RBC Hgb Hct MCV MCH Plt Count Lymph % (Auto) Gillespie % (Auto) Eos % (Auto) Baso % (Auto) Lymph # Baso # Seg Neutrophils % Lymphocytes % (Manual) Monocytes % (Manual) Nucleated RBC % Seg Neutrophils # Seg Neutrophils # Man Monocytes # (Manual) PT INR Activated Clotting Time POC ABG pH POC ABG pCO2 POC ABG pO2 Sodium Potassium Chloride Carbon Dioxide BUN Creatinine Glucose POC Glucose 172 H 140 H 135 H Calcium Magnesium Direct Bilirubin AST ALT Alkaline Phosphatase Total Creatine Kinase CK-MB (CK-2) CK-MB (CK-2) Rel Index Troponin T C-Reactive Protein Total Protein Albumin Triglycerides Ur Specific Gray Urine WBC (Auto) Miscellaneous Test 04/23/17 04/23/17 04/23/17 05:33 06:20 11:10 WBC RBC 3.19 L Hgb 9.9 L Hct 30.0 L MCV MCH Plt Count Lymph % (Auto) 8.0 L Gillespie % (Auto) Eos % (Auto) Baso % (Auto) Lymph # 0.8 L Baso # Seg Neutrophils % 84.5 H Lymphocytes % (Manual) Monocytes % (Manual) Nucleated RBC % Seg Neutrophils # 8.2 H Seg Neutrophils # Man Monocytes # (Manual) PT INR Activated Clotting Time POC ABG pH POC ABG pCO2 POC ABG pO2 Sodium Potassium Chloride Carbon Dioxide BUN Creatinine Glucose POC Glucose 134 H 134 H Calcium Magnesium Direct Bilirubin AST ALT Alkaline Phosphatase Total Creatine Kinase CK-MB (CK-2) CK-MB (CK-2) Rel Index Troponin T C-Reactive Protein Total Protein Albumin Triglycerides Ur Specific Gray Urine WBC (Auto) Miscellaneous Test 04/23/17 04/24/17 04/24/17 17:26 00:53 06:46 WBC RBC Hgb Hct MCV MCH Plt Count Lymph % (Auto) Gillespie % (Auto) Eos % (Auto) Baso % (Auto) Lymph # Baso # Seg Neutrophils % Lymphocytes % (Manual) Monocytes % (Manual) Nucleated RBC % Seg Neutrophils # Seg Neutrophils # Man Monocytes # (Manual) PT INR Activated Clotting Time POC ABG pH POC ABG pCO2 POC ABG pO2 Sodium Potassium Chloride Carbon Dioxide BUN Creatinine Glucose POC Glucose 164 H 146 H 125 H Calcium Magnesium Direct Bilirubin AST ALT Alkaline Phosphatase Total Creatine Kinase CK-MB (CK-2) CK-MB (CK-2) Rel Index Troponin T C-Reactive Protein Total Protein Albumin Triglycerides Ur Specific Gray Urine WBC (Auto) Miscellaneous Test 04/24/17 04/24/17 04/24/17 11:55 17:50 23:36 WBC RBC Hgb Hct MCV MCH Plt Count Lymph % (Auto) Gillespie % (Auto) Eos % (Auto) Baso % (Auto) Lymph # Baso # Seg Neutrophils % Lymphocytes % (Manual) Monocytes % (Manual) Nucleated RBC % Seg Neutrophils # Seg Neutrophils # Man Monocytes # (Manual) PT INR Activated Clotting Time POC ABG pH POC ABG pCO2 POC ABG pO2 Sodium Potassium Chloride Carbon Dioxide BUN Creatinine Glucose POC Glucose 156 H 146 H 131 H Calcium Magnesium Direct Bilirubin AST ALT Alkaline Phosphatase Total Creatine Kinase CK-MB (CK-2) CK-MB (CK-2) Rel Index Troponin T C-Reactive Protein Total Protein Albumin Triglycerides Ur Specific Gray Urine WBC (Auto) Miscellaneous Test 04/25/17 04/25/17 04/25/17 04:51 05:16 07:07 WBC RBC Hgb Hct MCV MCH Plt Count Lymph % (Auto) Gillespie % (Auto) Eos % (Auto) Baso % (Auto) Lymph # Baso # Seg Neutrophils % Lymphocytes % (Manual) Monocytes % (Manual) Nucleated RBC % Seg Neutrophils # Seg Neutrophils # Man Monocytes # (Manual) PT INR Activated Clotting Time POC ABG pH POC ABG pCO2 POC ABG pO2 Sodium Potassium Chloride Carbon Dioxide BUN Creatinine Glucose POC Glucose 139 H Calcium Magnesium Direct Bilirubin AST 105 H ALT 204 H Alkaline Phosphatase 189 H Total Creatine Kinase CK-MB (CK-2) CK-MB (CK-2) Rel Index Troponin T C-Reactive Protein Total Protein Albumin 2.4 L Triglycerides Ur Specific Gray Urine WBC (Auto) Miscellaneous Test Flexitest 1 H 04/25/17 04/25/17 04/25/17 12:29 17:23 23:32 WBC RBC Hgb Hct MCV MCH Plt Count Lymph % (Auto) G[place]pie % (Auto) Eos % (Auto) Baso % (Auto) Lymph # Baso # Seg Neutrophils % Lymphocytes % (Manual) Monocytes % (Manual) Nucleated RBC % Seg Neutrophils # Seg Neutrophils # Man Monocytes # (Manual) PT INR Activated Clotting Time POC ABG pH POC ABG pCO2 POC ABG pO2 Sodium Potassium Chloride Carbon Dioxide BUN Creatinine Glucose POC Glucose 132 H 133 H 128 H Calcium Magnesium Direct Bilirubin AST ALT Alkaline Phosphatase Total Creatine Kinase CK-MB (CK-2) CK-MB (CK-2) Rel Index Troponin T C-Reactive Protein Total Protein Albumin Triglycerides Ur Specific Gray Urine WBC (Auto) Miscellaneous Test 04/26/17 04/26/17 04/26/17 05:24 11:28 17:09 WBC RBC Hgb Hct MCV MCH Plt Count Lymph % (Auto) G[place]pie % (Auto) Eos % (Auto) Baso % (Auto) Lymph # Baso # Seg Neutrophils % Lymphocytes % (Manual) Monocytes % (Manual) Nucleated RBC % Seg Neutrophils # Seg Neutrophils # Man Monocytes # (Manual) PT INR Activated Clotting Time POC ABG pH POC ABG pCO2 POC ABG pO2 Sodium Potassium Chloride Carbon Dioxide BUN Creatinine Glucose POC Glucose 132 H 146 H 141 H Calcium Magnesium Direct Bilirubin AST ALT Alkaline Phosphatase Total Creatine Kinase CK-MB (CK-2) CK-MB (CK-2) Rel Index Troponin T C-Reactive Protein Total Protein Albumin Triglycerides Ur Specific Gray Urine WBC (Auto) Miscellaneous Test 04/26/17 04/27/17 04/27/17 23:52 05:40 05:40 WBC RBC 3.22 L Hgb 10.0 L Hct 29.9 L MCV MCH Plt Count Lymph % (Auto) Gillespie % (Auto) Eos % (Auto) Baso % (Auto) Lymph # Baso # Seg Neutrophils % 76.6 H Lymphocytes % (Manual) Monocytes % (Manual) Nucleated RBC % Seg Neutrophils # Seg Neutrophils # Man Monocytes # (Manual) PT INR Activated Clotting Time POC ABG pH POC ABG pCO2 POC ABG pO2 Sodium Potassium Chloride Carbon Dioxide BUN Creatinine Glucose POC Glucose 140 H Calcium Magnesium Direct Bilirubin AST 66 H ALT 137 H Alkaline Phosphatase 169 H Total Creatine Kinase CK-MB (CK-2) CK-MB (CK-2) Rel Index Troponin T C-Reactive Protein Total Protein 6.2 L Albumin 2.6 L Triglycerides Ur Specific Gray Urine WBC (Auto) Miscellaneous Test 04/27/17 04/27/17 04/27/17 05:40 06:10 11:13 WBC RBC Hgb Hct MCV MCH Plt Count Lymph % (Auto) Gillespie % (Auto) Eos % (Auto) Baso % (Auto) Lymph # Baso # Seg Neutrophils % Lymphocytes % (Manual) Monocytes % (Manual) Nucleated RBC % Seg Neutrophils # Seg Neutrophils # Man Monocytes # (Manual) PT INR Activated Clotting Time POC ABG pH POC ABG pCO2 POC ABG pO2 Sodium Potassium Chloride Carbon Dioxide BUN Creatinine 0.2 L Glucose 139 H POC Glucose 130 H 151 H Calcium Magnesium Direct Bilirubin AST ALT Alkaline Phosphatase Total Creatine Kinase CK-MB (CK-2) CK-MB (CK-2) Rel Index Troponin T C-Reactive Protein Total Protein Albumin Triglycerides Ur Specific Gray Urine WBC (Auto) Miscellaneous Test 04/27/17 04/27/17 04/28/17 17:37 23:19 05:24 WBC RBC Hgb Hct MCV MCH Plt Count Lymph % (Auto) Gillespie % (Auto) Eos % (Auto) Baso % (Auto) Lymph # Baso # Seg Neutrophils % Lymphocytes % (Manual) Monocytes % (Manual) Nucleated RBC % Seg Neutrophils # Seg Neutrophils # Man Monocytes # (Manual) PT INR Activated Clotting Time POC ABG pH POC ABG pCO2 POC ABG pO2 Sodium Potassium Chloride Carbon Dioxide BUN Creatinine Glucose POC Glucose 159 H 130 H 132 H Calcium Magnesium Direct Bilirubin AST ALT Alkaline Phosphatase Total Creatine Kinase CK-MB (CK-2) CK-MB (CK-2) Rel Index Troponin T C-Reactive Protein Total Protein Albumin Triglycerides Ur Specific Gray Urine WBC (Auto) Miscellaneous Test 04/28/17 04/28/17 04/28/17 11:15 17:38 23:23 WBC RBC Hgb Hct MCV MCH Plt Count Lymph % (Auto) Gillespie % (Auto) Eos % (Auto) Baso % (Auto) Lymph # Baso # Seg Neutrophils % Lymphocytes % (Manual) Monocytes % (Manual) Nucleated RBC % Seg Neutrophils # Seg Neutrophils # Man Monocytes # (Manual) PT INR Activated Clotting Time POC ABG pH POC ABG pCO2 POC ABG pO2 Sodium Potassium Chloride Carbon Dioxide BUN Creatinine Glucose POC Glucose 162 H 133 H 138 H Calcium Magnesium Direct Bilirubin AST ALT Alkaline Phosphatase Total Creatine Kinase CK-MB (CK-2) CK-MB (CK-2) Rel Index Troponin T C-Reactive Protein Total Protein Albumin Triglycerides Ur Specific Gray Urine WBC (Auto) Miscellaneous Test 04/29/17 04/29/17 04/29/17 05:15 12:55 17:21 WBC RBC Hgb Hct MCV MCH Plt Count Lymph % (Auto) [place]pie % (Auto) Eos % (Auto) Baso % (Auto) Lymph # Baso # Seg Neutrophils % Lymphocytes % (Manual) Monocytes % (Manual) Nucleated RBC % Seg Neutrophils # Seg Neutrophils # Man Monocytes # (Manual) PT INR Activated Clotting Time POC ABG pH POC ABG pCO2 POC ABG pO2 Sodium Potassium Chloride Carbon Dioxide BUN Creatinine Glucose POC Glucose 135 H 127 H 138 H Calcium Magnesium Direct Bilirubin AST ALT Alkaline Phosphatase Total Creatine Kinase CK-MB (CK-2) CK-MB (CK-2) Rel Index Troponin T C-Reactive Protein Total Protein Albumin Triglycerides Ur Specific Gray Urine WBC (Auto) Miscellaneous Test 04/29/17 04/30/17 04/30/17 23:52 04:55 12:22 WBC RBC Hgb Hct MCV MCH Plt Count Lymph % (Auto) [place]pie % (Auto) Eos % (Auto) Baso % (Auto) Lymph # Baso # Seg Neutrophils % Lymphocytes % (Manual) Monocytes % (Manual) Nucleated RBC % Seg Neutrophils # Seg Neutrophils # Man Monocytes # (Manual) PT INR Activated Clotting Time POC ABG pH POC ABG pCO2 POC ABG pO2 Sodium Potassium Chloride Carbon Dioxide BUN Creatinine Glucose POC Glucose 142 H 146 H 132 H Calcium Magnesium Direct Bilirubin AST ALT Alkaline Phosphatase Total Creatine Kinase CK-MB (CK-2) CK-MB (CK-2) Rel Index Troponin T C-Reactive Protein Total Protein Albumin Triglycerides Ur Specific Gray Urine WBC (Auto) Miscellaneous Test 04/30/17 04/30/17 04/30/17 14:25 17:47 18:20 WBC RBC Hgb Hct MCV MCH Plt Count Lymph % (Auto) [place]pie % (Auto) Eos % (Auto) Baso % (Auto) Lymph # Baso # Seg Neutrophils % Lymphocytes % (Manual) Monocytes % (Manual) Nucleated RBC % Seg Neutrophils # Seg Neutrophils # Man Monocytes # (Manual) PT INR Activated Clotting Time POC ABG pH 7.551 H POC ABG pCO2 32.7 L POC ABG pO2 Sodium Potassium Chloride Carbon Dioxide BUN 21 H Creatinine 0.2 L Glucose 141 H POC Glucose 139 H Calcium Magnesium Direct Bilirubin AST ALT Alkaline Phosphatase Total Creatine Kinase CK-MB (CK-2) CK-MB (CK-2) Rel Index Troponin T C-Reactive Protein Total Protein Albumin Triglycerides Ur Specific Gray Urine WBC (Auto) Miscellaneous Test 05/01/17 05/01/17 05/01/17 01:26 05:30 05:30 WBC RBC 3.49 L Hgb 10.3 L Hct 31.9 L MCV MCH Plt Count Lymph % (Auto) Gillespie % (Auto) 8.1 H Eos % (Auto) Baso % (Auto) Lymph # Baso # Seg Neutrophils % 71.3 H Lymphocytes % (Manual) Monocytes % (Manual) Nucleated RBC % Seg Neutrophils # Seg Neutrophils # Man Monocytes # (Manual) PT INR Activated Clotting Time POC ABG pH POC ABG pCO2 POC ABG pO2 Sodium 136 L Potassium Chloride 97.6 L Carbon Dioxide BUN Creatinine 0.2 L Glucose 123 H POC Glucose 116 H Calcium Magnesium Direct Bilirubin AST 71 H ALT 125 H Alkaline Phosphatase 158 H Total Creatine Kinase CK-MB (CK-2) CK-MB (CK-2) Rel Index Troponin T C-Reactive Protein Total Protein Albumin 2.6 L Triglycerides Ur Specific Gray Urine WBC (Auto) Miscellaneous Test 05/01/17 05/01/17 05/02/17 11:59 17:23 00:08 WBC RBC Hgb Hct MCV MCH Plt Count Lymph % (Auto) [place]pie % (Auto) Eos % (Auto) Baso % (Auto) Lymph # Baso # Seg Neutrophils % Lymphocytes % (Manual) Monocytes % (Manual) Nucleated RBC % Seg Neutrophils # Seg Neutrophils # Man Monocytes # (Manual) PT INR Activated Clotting Time POC ABG pH POC ABG pCO2 POC ABG pO2 Sodium Potassium Chloride Carbon Dioxide BUN Creatinine Glucose POC Glucose 118 H 144 H 122 H Calcium Magnesium Direct Bilirubin AST ALT Alkaline Phosphatase Total Creatine Kinase CK-MB (CK-2) CK-MB (CK-2) Rel Index Troponin T C-Reactive Protein Total Protein Albumin Triglycerides Ur Specific Gray Urine WBC (Auto) Miscellaneous Test 05/02/17 05/02/17 05/02/17 05:50 11:21 17:48 WBC RBC Hgb Hct MCV MCH Plt Count Lymph % (Auto) [place]pie % (Auto) Eos % (Auto) Baso % (Auto) Lymph # Baso # Seg Neutrophils % Lymphocytes % (Manual) Monocytes % (Manual) Nucleated RBC % Seg Neutrophils # Seg Neutrophils # Man Monocytes # (Manual) PT INR Activated Clotting Time POC ABG pH POC ABG pCO2 POC ABG pO2 Sodium Potassium Chloride Carbon Dioxide BUN Creatinine Glucose POC Glucose 120 H 121 H 140 H Calcium Magnesium Direct Bilirubin AST ALT Alkaline Phosphatase Total Creatine Kinase CK-MB (CK-2) CK-MB (CK-2) Rel Index Troponin T C-Reactive Protein Total Protein Albumin Triglycerides Ur Specific Gray Urine WBC (Auto) Miscellaneous Test 05/02/17 05/03/17 05/03/17 23:12 05:35 11:52 WBC RBC Hgb Hct MCV MCH Plt Count Lymph % (Auto) [place]pie % (Auto) Eos % (Auto) Baso % (Auto) Lymph # Baso # Seg Neutrophils % Lymphocytes % (Manual) Monocytes % (Manual) Nucleated RBC % Seg Neutrophils # Seg Neutrophils # Man Monocytes # (Manual) PT INR Activated Clotting Time POC ABG pH POC ABG pCO2 POC ABG pO2 Sodium Potassium Chloride Carbon Dioxide BUN Creatinine Glucose POC Glucose 128 H 113 H 126 H Calcium Magnesium Direct Bilirubin AST ALT Alkaline Phosphatase Total Creatine Kinase CK-MB (CK-2) CK-MB (CK-2) Rel Index Troponin T C-Reactive Protein Total Protein Albumin Triglycerides Ur Specific Gray Urine WBC (Auto) Miscellaneous Test 05/03/17 05/03/17 05/04/17 17:29 23:26 04:55 WBC RBC Hgb Hct MCV MCH Plt Count Lymph % (Auto) [place]pie % (Auto) Eos % (Auto) Baso % (Auto) Lymph # Baso # Seg Neutrophils % Lymphocytes % (Manual) Monocytes % (Manual) Nucleated RBC % Seg Neutrophils # Seg Neutrophils # Man Monocytes # (Manual) PT INR Activated Clotting Time POC ABG pH POC ABG pCO2 POC ABG pO2 Sodium Potassium Chloride Carbon Dioxide BUN Creatinine Glucose POC Glucose 141 H 129 H 126 H Calcium Magnesium Direct Bilirubin AST ALT Alkaline Phosphatase Total Creatine Kinase CK-MB (CK-2) CK-MB (CK-2) Rel Index Troponin T C-Reactive Protein Total Protein Albumin Triglycerides Ur Specific Gray Urine WBC (Auto) Miscellaneous Test 05/04/17 05/04/17 05/05/17 12:09 17:46 00:06 WBC RBC Hgb Hct MCV MCH Plt Count Lymph % (Auto) [place]pie % (Auto) Eos % (Auto) Baso % (Auto) Lymph # Baso # Seg Neutrophils % Lymphocytes % (Manual) Monocytes % (Manual) Nucleated RBC % Seg Neutrophils # Seg Neutrophils # Man Monocytes # (Manual) PT INR Activated Clotting Time POC ABG pH POC ABG pCO2 POC ABG pO2 Sodium Potassium Chloride Carbon Dioxide BUN Creatinine Glucose POC Glucose 125 H 125 H 110 H Calcium Magnesium Direct Bilirubin AST ALT Alkaline Phosphatase Total Creatine Kinase CK-MB (CK-2) CK-MB (CK-2) Rel Index Troponin T C-Reactive Protein Total Protein Albumin Triglycerides Ur Specific Gray Urine WBC (Auto) Miscellaneous Test 05/05/17 05/05/17 05/05/17 05:48 11:41 16:19 WBC RBC Hgb Hct MCV MCH Plt Count Lymph % (Auto) [place]pie % (Auto) Eos % (Auto) Baso % (Auto) Lymph # Baso # Seg Neutrophils % Lymphocytes % (Manual) Monocytes % (Manual) Nucleated RBC % Seg Neutrophils # Seg Neutrophils # Man Monocytes # (Manual) PT INR Activated Clotting Time POC ABG pH POC ABG pCO2 POC ABG pO2 Sodium Potassium Chloride Carbon Dioxide BUN Creatinine Glucose POC Glucose 124 H 122 H 120 H Calcium Magnesium Direct Bilirubin AST ALT Alkaline Phosphatase Total Creatine Kinase CK-MB (CK-2) CK-MB (CK-2) Rel Index Troponin T C-Reactive Protein Total Protein Albumin Triglycerides Ur Specific Gray Urine WBC (Auto) Miscellaneous Test 05/06/17 05/06/17 05/06/17 00:16 05:47 11:42 WBC RBC Hgb Hct MCV MCH Plt Count Lymph % (Auto) [place]pie % (Auto) Eos % (Auto) Baso % (Auto) Lymph # Baso # Seg Neutrophils % Lymphocytes % (Manual) Monocytes % (Manual) Nucleated RBC % Seg Neutrophils # Seg Neutrophils # Man Monocytes # (Manual) PT INR Activated Clotting Time POC ABG pH POC ABG pCO2 POC ABG pO2 Sodium Potassium Chloride Carbon Dioxide BUN Creatinine Glucose POC Glucose 110 H 142 H 120 H Calcium Magnesium Direct Bilirubin AST ALT Alkaline Phosphatase Total Creatine Kinase CK-MB (CK-2) CK-MB (CK-2) Rel Index Troponin T C-Reactive Protein Total Protein Albumin Triglycerides Ur Specific Gray Urine WBC (Auto) Miscellaneous Test 05/06/17 05/07/17 05/07/17 17:46 00:07 05:28 WBC RBC Hgb Hct MCV MCH Plt Count Lymph % (Auto) [place] % (Auto) Eos % (Auto) Baso % (Auto) Lymph # Baso # Seg Neutrophils % Lymphocytes % (Manual) Monocytes % (Manual) Nucleated RBC % Seg Neutrophils # Seg Neutrophils # Man Monocytes # (Manual) PT INR Activated Clotting Time POC ABG pH POC ABG pCO2 POC ABG pO2 Sodium Potassium Chloride Carbon Dioxide BUN Creatinine Glucose POC Glucose 127 H 145 H 124 H Calcium Magnesium Direct Bilirubin AST ALT Alkaline Phosphatase Total Creatine Kinase CK-MB (CK-2) CK-MB (CK-2) Rel Index Troponin T C-Reactive Protein Total Protein Albumin Triglycerides Ur Specific Gray Urine WBC (Auto) Miscellaneous Test 05/07/17 05/07/17 05/08/17 11:17 17:14 00:03 WBC RBC Hgb Hct MCV MCH Plt Count Lymph % (Auto) [place] % (Auto) Eos % (Auto) Baso % (Auto) Lymph # Baso # Seg Neutrophils % Lymphocytes % (Manual) Monocytes % (Manual) Nucleated RBC % Seg Neutrophils # Seg Neutrophils # Man Monocytes # (Manual) PT INR Activated Clotting Time POC ABG pH POC ABG pCO2 POC ABG pO2 Sodium Potassium Chloride Carbon Dioxide BUN Creatinine Glucose POC Glucose 144 H 125 H 122 H Calcium Magnesium Direct Bilirubin AST ALT Alkaline Phosphatase Total Creatine Kinase CK-MB (CK-2) CK-MB (CK-2) Rel Index Troponin T C-Reactive Protein Total Protein Albumin Triglycerides Ur Specific Gray Urine WBC (Auto) Miscellaneous Test 05/08/17 05:43 WBC RBC Hgb Hct MCV MCH Plt Count Lymph % (Auto) [place] % (Auto) Eos % (Auto) Baso % (Auto) Lymph # Baso # Seg Neutrophils % Lymphocytes % (Manual) Monocytes % (Manual) Nucleated RBC % Seg Neutrophils # Seg Neutrophils # Man Monocytes # (Manual) PT INR Activated Clotting Time POC ABG pH POC ABG pCO2 POC ABG pO2 Sodium Potassium Chloride Carbon Dioxide BUN Creatinine Glucose POC Glucose 117 H Calcium Magnesium Direct Bilirubin AST ALT Alkaline Phosphatase Total Creatine Kinase CK-MB (CK-2) CK-MB (CK-2) Rel Index Troponin T C-Reactive Protein Total Protein Albumin Triglycerides Ur Specific Gray Urine WBC (Auto) Miscellaneous Test
--- NOTE | 2017-05-08 12:45 | Progress Note ---
Assessment and Plan 46 year old male with anoxic brain injury, due to cardiac arrest on 03/29/2017. He continues unresponsive. The last EEG per Dr. Perkins reveals no definite cortical activity. CT reveals extensive ischemic damage. 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 This is a very sad case as the patient is so young and had seemingly no health issues before this event. Prognosis is extremely poor. Plan - Will watch for family to discuss case Continue supportive care as is. Subjective Date of service: 05/08/17 Principal diagnosis: coma,ARV,s/p arrest Interval history: This 46 year old male sustained a witnessed carduac arrest on 03/29/2017, was brought to ER and transferred to [facility] for care of acute NH. 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 Echocardiogram reveals EF of 30 to 35%. A CT scan of the brain on 04/04/17 revealed diffuse edema consistent with anoxic injury. A repeat scan on 05/05/2017 revealed resolution of the edema with atrophy and laminar necrosis in parietal and occipital lobes consistent with anoxic injury and ischemic damage. The patient has undergone trach. and PEG placement. His exam has been stable with no response, occasional withdrawal to pain, eyes open with spontaneous blinking. Objective - Exam Narrative Exam: The patient is awake with eyes open and blinking. He does not respond to voice or follow commands. He is on the ventilator. CN's - eyes move spontaneously in a yoked pattern, occasionally there seems to be slight skew deviation. He does not blink to threat or follow a light. Corneals appear to be intact. face is symmetric. Tongue apears normal. He swallows spontaneously and yawns. Motor - no spontaneous movement. mild withdrawal to painful stimuli on the left. Sensory - mild movements to deep pain on the left. Reflexes - +3 to 4 on the right, +2 on the left. Cerebellar - unable to assess. - Vital Sign Vital Signs - 12hr 05/08/17 05/08/17 05/08/17 01:00 01:30 02:00 Temperature Pulse Rate 82 81 85 Pulse Rate [ From Monitor] Respiratory 22 22 21 Rate Blood Pressure 81/46 80/39 90/48 O2 Sat by Pulse 98 97 97 Oximetry O2 Sat by Pulse Oximetry [ Assessment] 05/08/17 05/08/17 05/08/17 02:30 03:00 03:30 Temperature Pulse Rate 86 89 87 Pulse Rate [ From Monitor] Respiratory 16 24 23 Rate Blood Pressure 93/55 96/56 91/45 O2 Sat by Pulse 96 99 96 Oximetry O2 Sat by Pulse Oximetry [ Assessment] 05/08/17 05/08/17 05/08/17 03:54 04:00 04:30 Temperature 100.1 F H Pulse Rate 89 88 89 Pulse Rate [ From Monitor] Respiratory 23 19 Rate Blood Pressure 91/45 92/47 90/46 O2 Sat by Pulse 96 97 97 Oximetry O2 Sat by Pulse 96 Oximetry [ Assessment] 05/08/17 05/08/17 05/08/17 05:00 05:30 06:00 Temperature Pulse Rate 86 87 90 Pulse Rate [ From Monitor] Respiratory 24 18 23 Rate Blood Pressure 87/42 86/41 88/44 O2 Sat by Pulse 97 95 97 Oximetry O2 Sat by Pulse Oximetry [ Assessment] 05/08/17 05/08/17 05/08/17 06:30 07:00 07:30 Temperature Pulse Rate 87 90 89 Pulse Rate [ From Monitor] Respiratory 22 23 22 Rate Blood Pressure 90/47 92/48 92/49 O2 Sat by Pulse 96 96 97 Oximetry O2 Sat by Pulse Oximetry [ Assessment] 05/08/17 05/08/17 05/08/17 08:00 08:30 08:33 Temperature 98.7 F Pulse Rate 91 H 91 H Pulse Rate [ 90 From Monitor] Respiratory 19 17 Rate Blood Pressure 98/48 90/48 O2 Sat by Pulse 97 96 98 Oximetry O2 Sat by Pulse Oximetry [ Assessment] 05/08/17 05/08/17 05/08/17 09:00 09:30 09:45 Temperature Pulse Rate 89 90 92 H Pulse Rate [ From Monitor] Respiratory 22 21 Rate Blood Pressure 87/43 86/41 86/41 O2 Sat by Pulse 96 96 Oximetry O2 Sat by Pulse Oximetry [ Assessment] 05/08/17 05/08/17 05/08/17 09:46 10:00 10:30 Temperature Pulse Rate 92 H 90 91 H Pulse Rate [ From Monitor] Respiratory 22 18 Rate Blood Pressure 86/41 86/44 99/61 O2 Sat by Pulse 95 98 Oximetry O2 Sat by Pulse Oximetry [ Assessment] 05/08/17 05/08/17 05/08/17 11:00 11:29 11:49 Temperature Pulse Rate 90 92 H 91 H Pulse Rate [ From Monitor] Respiratory 20 19 Rate Blood Pressure 83/46 93/48 93/48 O2 Sat by Pulse 94 95 95 Oximetry O2 Sat by Pulse 95 Oximetry [ Assessment] - Laboratory Findings CBC and BMP: 05/01/17 05:30 05/01/17 05:30 Abnormal Lab Findings: Abnormal Labs 03/29/17 03/29/17 03/29/17 11:35 11:35 11:40 WBC RBC Hgb Hct MCV 98 H MCH 33 H Plt Count Lymph % (Auto) Divide % (Auto) Eos % (Auto) Baso % (Auto) Lymph # Baso # Seg Neutrophils % Lymphocytes % (Manual) Monocytes % (Manual) 9.0 H Nucleated RBC % 1.0 H Seg Neutrophils # Seg Neutrophils # Man Monocytes # (Manual) 0.9 H PT 15.8 H INR 1.20 H Activated Clotting Time POC ABG pH POC ABG pCO2 POC ABG pO2 Sodium Potassium 2.7 L* Chloride 95.3 L Carbon Dioxide 17 L BUN Creatinine Glucose 435 H POC Glucose Calcium Magnesium Direct Bilirubin AST ALT Alkaline Phosphatase Total Creatine Kinase CK-MB (CK-2) CK-MB (CK-2) Rel Index Troponin T C-Reactive Protein Total Protein 6.1 L Albumin 3.5 L Triglycerides Ur Specific [place] Urine WBC (Auto) Miscellaneous Test 03/29/17 03/29/17 03/29/17 12:34 13:10 13:25 WBC RBC Hgb Hct MCV MCH Plt Count Lymph % (Auto) Divide % (Auto) Eos % (Auto) Baso % (Auto) Lymph # Baso # Seg Neutrophils % Lymphocytes % (Manual) Monocytes % (Manual) Nucleated RBC % Seg Neutrophils # Seg Neutrophils # Man Monocytes # (Manual) PT INR Activated Clotting Time 142 H 169 H 175 H POC ABG pH POC ABG pCO2 POC ABG pO2 Sodium Potassium Chloride Carbon Dioxide BUN Creatinine Glucose POC Glucose Calcium Magnesium Direct Bilirubin AST ALT Alkaline Phosphatase Total Creatine Kinase CK-MB (CK-2) CK-MB (CK-2) Rel Index Troponin T C-Reactive Protein Total Protein Albumin Triglycerides Ur Specific [place] Urine WBC (Auto) Miscellaneous Test 01/03/18 01/03/18 01/03/18 14:50 15:18 19:52 WBC RBC Hgb Hct MCV MCH Plt Count Lymph % (Auto) Divide % (Auto) Eos % (Auto) Baso % (Auto) Lymph # Baso # Seg Neutrophils % Lymphocytes % (Manual) Monocytes % (Manual) Nucleated RBC % Seg Neutrophils # Seg Neutrophils # Man Monocytes # (Manual) PT INR Activated Clotting Time 175 H POC ABG pH 7.293 L POC ABG pCO2 POC ABG pO2 602 H Sodium Potassium Chloride Carbon Dioxide BUN Creatinine Glucose POC Glucose Calcium Magnesium Direct Bilirubin AST ALT Alkaline Phosphatase Total Creatine Kinase 7263 H CK-MB (CK-2) > 300.0 H CK-MB (CK-2) Rel Index 4.1 H Troponin T 8.080 H* D C-Reactive Protein Total Protein Albumin Triglycerides 195 H Ur Specific [place] Urine WBC (Auto) Miscellaneous Test 03/30/17 03/30/17 03/30/17 03:50 03:50 06:19 WBC 19.5 H RBC Hgb Hct MCV MCH Plt Count Lymph % (Auto) [place] % (Auto) Eos % (Auto) Baso % (Auto) Lymph # Baso # Seg Neutrophils % Lymphocytes % (Manual) 7.0 L Monocytes % (Manual) Nucleated RBC % Seg Neutrophils # Seg Neutrophils # Man 12.7 H Monocytes # (Manual) 1.4 H PT INR Activated Clotting Time POC ABG pH POC ABG pCO2 28.2 L POC ABG pO2 108 H Sodium Potassium Chloride 108.9 H Carbon Dioxide 15 L BUN 25 H Creatinine Glucose 158 H POC Glucose Calcium 8.1 L Magnesium Direct Bilirubin AST ALT Alkaline Phosphatase Total Creatine Kinase 7963 H CK-MB (CK-2) > 300.0 H CK-MB (CK-2) Rel Index Troponin T 6.850 H* C-Reactive Protein Total Protein Albumin Triglycerides Ur Specific [place] Urine WBC (Auto) Miscellaneous Test 03/30/17 03/30/17 03/31/17 09:45 16:04 02:19 WBC RBC Hgb Hct MCV MCH Plt Count Lymph % (Auto) [place] % (Auto) Eos % (Auto) Baso % (Auto) Lymph # Baso # Seg Neutrophils % Lymphocytes % (Manual) Monocytes % (Manual) Nucleated RBC % Seg Neutrophils # Seg Neutrophils # Man Monocytes # (Manual) PT INR Activated Clotting Time POC ABG pH POC ABG pCO2 POC ABG pO2 Sodium Potassium Chloride Carbon Dioxide BUN Creatinine Glucose POC Glucose 137 H Calcium Magnesium Direct Bilirubin AST ALT Alkaline Phosphatase Total Creatine Kinase CK-MB (CK-2) CK-MB (CK-2) Rel Index Troponin T C-Reactive Protein 21.80 H Total Protein Albumin Triglycerides Ur Specific [place] 1.031 H Urine WBC (Auto) Miscellaneous Test 03/31/17 03/31/17 03/31/17 03:57 06:54 09:22 WBC RBC Hgb Hct MCV MCH Plt Count Lymph % (Auto) [place] % (Auto) Eos % (Auto) Baso % (Auto) Lymph # Baso # Seg Neutrophils % Lymphocytes % (Manual) Monocytes % (Manual) Nucleated RBC % Seg Neutrophils # Seg Neutrophils # Man Monocytes # (Manual) PT INR Activated Clotting Time POC ABG pH 7.475 H POC ABG pCO2 25.4 L POC ABG pO2 62 L Sodium Potassium Chloride Carbon Dioxide 19 L BUN 22 H Creatinine 0.6 L Glucose 148 H POC Glucose 143 H Calcium 8.3 L Magnesium Direct Bilirubin AST ALT Alkaline Phosphatase Total Creatine Kinase CK-MB (CK-2) CK-MB (CK-2) Rel Index Troponin T C-Reactive Protein Total Protein Albumin Triglycerides Ur Specific [place] Urine WBC (Auto) Miscellaneous Test 03/31/17 03/31/17 03/31/17 11:40 17:47 23:38 WBC RBC Hgb Hct MCV MCH Plt Count Lymph % (Auto) [place] % (Auto) Eos % (Auto) Baso % (Auto) Lymph # Baso # Seg Neutrophils % Lymphocytes % (Manual) Monocytes % (Manual) Nucleated RBC % Seg Neutrophils # Seg Neutrophils # Man Monocytes # (Manual) PT INR Activated Clotting Time POC ABG pH POC ABG pCO2 POC ABG pO2 Sodium Potassium Chloride Carbon Dioxide BUN Creatinine Glucose POC Glucose 127 H 137 H 148 H Calcium Magnesium Direct Bilirubin AST ALT Alkaline Phosphatase Total Creatine Kinase CK-MB (CK-2) CK-MB (CK-2) Rel Index Troponin T C-Reactive Protein Total Protein Albumin Triglycerides Ur Specific [place] Urine WBC (Auto) Miscellaneous Test 04/01/17 04/01/17 04/01/17 04:29 05:01 11:54 WBC RBC Hgb Hct MCV MCH Plt Count Lymph % (Auto) [place] % (Auto) Eos % (Auto) Baso % (Auto) Lymph # Baso # Seg Neutrophils % Lymphocytes % (Manual) Monocytes % (Manual) Nucleated RBC % Seg Neutrophils # Seg Neutrophils # Man Monocytes # (Manual) PT INR Activated Clotting Time POC ABG pH 7.513 H POC ABG pCO2 22.1 L POC ABG pO2 64 L Sodium Potassium Chloride Carbon Dioxide BUN Creatinine Glucose POC Glucose 121 H Calcium Magnesium Direct Bilirubin AST ALT Alkaline Phosphatase Total Creatine Kinase CK-MB (CK-2) CK-MB (CK-2) Rel Index Troponin T C-Reactive Protein Total Protein Albumin Triglycerides 151 H Ur Specific [place] Urine WBC (Auto) Miscellaneous Test 04/01/17 04/02/17 04/02/17 18:17 00:11 04:52 WBC RBC Hgb Hct MCV MCH Plt Count Lymph % (Auto) [place] % (Auto) Eos % (Auto) Baso % (Auto) Lymph # Baso # Seg Neutrophils % Lymphocytes % (Manual) Monocytes % (Manual) Nucleated RBC % Seg Neutrophils # Seg Neutrophils # Man Monocytes # (Manual) PT INR Activated Clotting Time POC ABG pH 7.524 H POC ABG pCO2 25.5 L POC ABG pO2 66 L Sodium Potassium Chloride Carbon Dioxide BUN Creatinine Glucose POC Glucose 117 H 122 H Calcium Magnesium Direct Bilirubin AST ALT Alkaline Phosphatase Total Creatine Kinase CK-MB (CK-2) CK-MB (CK-2) Rel Index Troponin T C-Reactive Protein Total Protein Albumin Triglycerides Ur Specific [place] Urine WBC (Auto) Miscellaneous Test 04/02/17 04/02/17 04/02/17 05:18 10:41 12:19 WBC RBC Hgb Hct MCV MCH Plt Count Lymph % (Auto) [place] % (Auto) Eos % (Auto) Baso % (Auto) Lymph # Baso # Seg Neutrophils % Lymphocytes % (Manual) Monocytes % (Manual) Nucleated RBC % Seg Neutrophils # Seg Neutrophils # Man Monocytes # (Manual) PT INR Activated Clotting Time POC ABG pH 7.534 H POC ABG pCO2 27.4 L POC ABG pO2 Sodium Potassium Chloride Carbon Dioxide BUN Creatinine Glucose POC Glucose 132 H 129 H Calcium Magnesium Direct Bilirubin AST ALT Alkaline Phosphatase Total Creatine Kinase CK-MB (CK-2) CK-MB (CK-2) Rel Index Troponin T C-Reactive Protein Total Protein Albumin Triglycerides Ur Specific [place] Urine WBC (Auto) Miscellaneous Test 04/02/17 04/03/17 04/03/17 18:05 00:08 05:09 WBC RBC Hgb Hct MCV MCH Plt Count Lymph % (Auto) [place] % (Auto) Eos % (Auto) Baso % (Auto) Lymph # Baso # Seg Neutrophils % Lymphocytes % (Manual) Monocytes % (Manual) Nucleated RBC % Seg Neutrophils # Seg Neutrophils # Man Monocytes # (Manual) PT INR Activated Clotting Time POC ABG pH 7.455 H POC ABG pCO2 33.2 L POC ABG pO2 120 H Sodium Potassium Chloride Carbon Dioxide BUN Creatinine Glucose POC Glucose 136 H 128 H Calcium Magnesium Direct Bilirubin AST ALT Alkaline Phosphatase Total Creatine Kinase CK-MB (CK-2) CK-MB (CK-2) Rel Index Troponin T C-Reactive Protein Total Protein Albumin Triglycerides Ur Specific [place] Urine WBC (Auto) Miscellaneous Test 04/03/17 04/03/17 04/03/17 06:32 11:54 12:16 WBC 11.9 H RBC Hgb Hct MCV MCH Plt Count 125 L Lymph % (Auto) 4.8 L [place] % (Auto) Eos % (Auto) Baso % (Auto) Lymph # 0.6 L Baso # Seg Neutrophils % 86.7 H Lymphocytes % (Manual) Monocytes % (Manual) Nucleated RBC % Seg Neutrophils # 10.3 H Seg Neutrophils # Man Monocytes # (Manual) PT INR Activated Clotting Time POC ABG pH POC ABG pCO2 POC ABG pO2 Sodium Potassium Chloride Carbon Dioxide BUN Creatinine Glucose POC Glucose 138 H 143 H Calcium Magnesium Direct Bilirubin AST ALT Alkaline Phosphatase Total Creatine Kinase CK-MB (CK-2) CK-MB (CK-2) Rel Index Troponin T C-Reactive Protein Total Protein Albumin Triglycerides Ur Specific [place] Urine WBC (Auto) Miscellaneous Test 04/03/17 04/03/17 04/04/17 17:33 23:59 04:34 WBC RBC Hgb Hct MCV MCH Plt Count Lymph % (Auto) [place] % (Auto) Eos % (Auto) Baso % (Auto) Lymph # Baso # Seg Neutrophils % Lymphocytes % (Manual) Monocytes % (Manual) Nucleated RBC % Seg Neutrophils # Seg Neutrophils # Man Monocytes # (Manual) PT INR Activated Clotting Time POC ABG pH 7.457 H POC ABG pCO2 29.8 L POC ABG pO2 76 L Sodium Potassium Chloride Carbon Dioxide BUN Creatinine Glucose POC Glucose 130 H 155 H Calcium Magnesium Direct Bilirubin AST ALT Alkaline Phosphatase Total Creatine Kinase CK-MB (CK-2) CK-MB (CK-2) Rel Index Troponin T C-Reactive Protein Total Protein Albumin Triglycerides Ur Specific [place] Urine WBC (Auto) Miscellaneous Test 04/04/17 04/04/17 04/04/17 05:27 12:22 18:18 WBC RBC Hgb Hct MCV MCH Plt Count Lymph % (Auto) [place] % (Auto) Eos % (Auto) Baso % (Auto) Lymph # Baso # Seg Neutrophils % Lymphocytes % (Manual) Monocytes % (Manual) Nucleated RBC % Seg Neutrophils # Seg Neutrophils # Man Monocytes # (Manual) PT INR Activated Clotting Time POC ABG pH POC ABG pCO2 POC ABG pO2 Sodium Potassium Chloride Carbon Dioxide BUN Creatinine Glucose POC Glucose 164 H 146 H 130 H Calcium Magnesium Direct Bilirubin AST ALT Alkaline Phosphatase Total Creatine Kinase CK-MB (CK-2) CK-MB (CK-2) Rel Index Troponin T C-Reactive Protein Total Protein Albumin Triglycerides Ur Specific [place] Urine WBC (Auto) Miscellaneous Test 04/05/17 04/05/17 04/05/17 04:43 05:28 11:36 WBC RBC Hgb Hct MCV MCH Plt Count Lymph % (Auto) [place] % (Auto) Eos % (Auto) Baso % (Auto) Lymph # Baso # Seg Neutrophils % Lymphocytes % (Manual) Monocytes % (Manual) Nucleated RBC % Seg Neutrophils # Seg Neutrophils # Man Monocytes # (Manual) PT INR Activated Clotting Time POC ABG pH 7.479 H POC ABG pCO2 33.5 L POC ABG pO2 76 L Sodium Potassium Chloride Carbon Dioxide BUN Creatinine Glucose POC Glucose 145 H 136 H Calcium Magnesium Direct Bilirubin AST ALT Alkaline Phosphatase Total Creatine Kinase CK-MB (CK-2) CK-MB (CK-2) Rel Index Troponin T C-Reactive Protein Total Protein Albumin Triglycerides Ur Specific [place] Urine WBC (Auto) Miscellaneous Test 04/05/17 04/06/17 04/06/17 17:58 00:16 05:26 WBC RBC Hgb Hct MCV MCH Plt Count Lymph % (Auto) [place] % (Auto) Eos % (Auto) Baso % (Auto) Lymph # Baso # Seg Neutrophils % Lymphocytes % (Manual) Monocytes % (Manual) Nucleated RBC % Seg Neutrophils # Seg Neutrophils # Man Monocytes # (Manual) PT INR Activated Clotting Time POC ABG pH POC ABG pCO2 POC ABG pO2 Sodium Potassium Chloride Carbon Dioxide BUN Creatinine Glucose POC Glucose 130 H 159 H 146 H Calcium Magnesium Direct Bilirubin AST ALT Alkaline Phosphatase Total Creatine Kinase CK-MB (CK-2) CK-MB (CK-2) Rel Index Troponin T C-Reactive Protein Total Protein Albumin Triglycerides Ur Specific [place] Urine WBC (Auto) Miscellaneous Test 04/06/17 04/06/17 04/07/17 13:11 16:54 11:45 WBC RBC Hgb Hct MCV MCH Plt Count Lymph % (Auto) [place] % (Auto) Eos % (Auto) Baso % (Auto) Lymph # Baso # Seg Neutrophils % Lymphocytes % (Manual) Monocytes % (Manual) Nucleated RBC % Seg Neutrophils # Seg Neutrophils # Man Monocytes # (Manual) PT INR Activated Clotting Time POC ABG pH 7.517 H POC ABG pCO2 32.1 L POC ABG pO2 Sodium Potassium Chloride Carbon Dioxide BUN Creatinine Glucose POC Glucose 132 H 123 H Calcium Magnesium Direct Bilirubin AST ALT Alkaline Phosphatase Total Creatine Kinase CK-MB (CK-2) CK-MB (CK-2) Rel Index Troponin T C-Reactive Protein Total Protein Albumin Triglycerides Ur Specific [place] Urine WBC (Auto) Miscellaneous Test 04/07/17 04/07/17 04/07/17 12:51 17:40 23:55 WBC RBC Hgb Hct MCV MCH Plt Count Lymph % (Auto) [place] % (Auto) Eos % (Auto) Baso % (Auto) Lymph # Baso # Seg Neutrophils % Lymphocytes % (Manual) Monocytes % (Manual) Nucleated RBC % Seg Neutrophils # Seg Neutrophils # Man Monocytes # (Manual) PT INR Activated Clotting Time POC ABG pH POC ABG pCO2 POC ABG pO2 Sodium Potassium Chloride Carbon Dioxide BUN Creatinine Glucose POC Glucose 138 H 154 H 143 H Calcium Magnesium Direct Bilirubin AST ALT Alkaline Phosphatase Total Creatine Kinase CK-MB (CK-2) CK-MB (CK-2) Rel Index Troponin T C-Reactive Protein Total Protein Albumin Triglycerides Ur Specific [place] Urine WBC (Auto) Miscellaneous Test 04/08/17 04/08/17 04/08/17 05:27 11:14 17:44 WBC RBC Hgb Hct MCV MCH Plt Count Lymph % (Auto) [place] % (Auto) Eos % (Auto) Baso % (Auto) Lymph # Baso # Seg Neutrophils % Lymphocytes % (Manual) Monocytes % (Manual) Nucleated RBC % Seg Neutrophils # Seg Neutrophils # Man Monocytes # (Manual) PT INR Activated Clotting Time POC ABG pH POC ABG pCO2 POC ABG pO2 Sodium Potassium Chloride Carbon Dioxide BUN Creatinine Glucose POC Glucose 142 H 153 H 129 H Calcium Magnesium Direct Bilirubin AST ALT Alkaline Phosphatase Total Creatine Kinase CK-MB (CK-2) CK-MB (CK-2) Rel Index Troponin T C-Reactive Protein Total Protein Albumin Triglycerides Ur Specific [place] Urine WBC (Auto) Miscellaneous Test 04/09/17 04/09/17 04/09/17 08:20 11:21 17:37 WBC RBC Hgb Hct MCV MCH Plt Count Lymph % (Auto) [place] % (Auto) Eos % (Auto) Baso % (Auto) Lymph # Baso # Seg Neutrophils % Lymphocytes % (Manual) Monocytes % (Manual) Nucleated RBC % Seg Neutrophils # Seg Neutrophils # Man Monocytes # (Manual) PT INR Activated Clotting Time POC ABG pH POC ABG pCO2 POC ABG pO2 Sodium 147 H Potassium Chloride 108.8 H Carbon Dioxide BUN 39 H Creatinine 0.5 L Glucose 138 H POC Glucose 152 H 109 H Calcium Magnesium Direct Bilirubin AST ALT Alkaline Phosphatase Total Creatine Kinase CK-MB (CK-2) CK-MB (CK-2) Rel Index Troponin T C-Reactive Protein Total Protein Albumin Triglycerides Ur Specific [place] Urine WBC (Auto) Miscellaneous Test 04/10/17 04/10/17 04/10/17 00:13 04:16 04:16 WBC RBC Hgb 11.5 L Hct MCV 96 H MCH Plt Count 103 L Lymph % (Auto) 11.1 L [place] % (Auto) Eos % (Auto) Baso % (Auto) Lymph # Baso # Seg Neutrophils % 81.5 H Lymphocytes % (Manual) Monocytes % (Manual) Nucleated RBC % Seg Neutrophils # 8.8 H Seg Neutrophils # Man Monocytes # (Manual) PT INR Activated Clotting Time POC ABG pH POC ABG pCO2 POC ABG pO2 Sodium 148 H Potassium Chloride 109.0 H Carbon Dioxide BUN 36 H Creatinine 0.5 L Glucose 131 H POC Glucose 127 H Calcium 8.1 L Magnesium 2.40 H Direct Bilirubin AST 206 H ALT 228 H Alkaline Phosphatase 178 H Total Creatine Kinase CK-MB (CK-2) CK-MB (CK-2) Rel Index Troponin T C-Reactive Protein Total Protein Albumin 2.8 L Triglycerides Ur Specific [place] Urine WBC (Auto) Miscellaneous Test 04/10/17 04/10/17 04/10/17 06:01 11:57 18:27 WBC RBC Hgb Hct MCV MCH Plt Count Lymph % (Auto) [place] % (Auto) Eos % (Auto) Baso % (Auto) Lymph # Baso # Seg Neutrophils % Lymphocytes % (Manual) Monocytes % (Manual) Nucleated RBC % Seg Neutrophils # Seg Neutrophils # Man Monocytes # (Manual) PT INR Activated Clotting Time POC ABG pH POC ABG pCO2 POC ABG pO2 Sodium Potassium Chloride Carbon Dioxide BUN Creatinine Glucose POC Glucose 108 H 154 H 130 H Calcium Magnesium Direct Bilirubin AST ALT Alkaline Phosphatase Total Creatine Kinase CK-MB (CK-2) CK-MB (CK-2) Rel Index Troponin T C-Reactive Protein Total Protein Albumin Triglycerides Ur Specific [place] Urine WBC (Auto) Miscellaneous Test 04/11/17 04/11/17 04/12/17 12:25 17:10 00:22 WBC RBC Hgb Hct MCV MCH Plt Count Lymph % (Auto) [place] % (Auto) Eos % (Auto) Baso % (Auto) Lymph # Baso # Seg Neutrophils % Lymphocytes % (Manual) Monocytes % (Manual) Nucleated RBC % Seg Neutrophils # Seg Neutrophils # Man Monocytes # (Manual) PT INR Activated Clotting Time POC ABG pH POC ABG pCO2 POC ABG pO2 Sodium Potassium Chloride Carbon Dioxide BUN Creatinine Glucose POC Glucose 107 H 129 H 128 H Calcium Magnesium Direct Bilirubin AST ALT Alkaline Phosphatase Total Creatine Kinase CK-MB (CK-2) CK-MB (CK-2) Rel Index Troponin T C-Reactive Protein Total Protein Albumin Triglycerides Ur Specific [place] Urine WBC (Auto) Miscellaneous Test 04/12/17 04/12/17 04/12/17 05:00 11:57 17:47 WBC RBC Hgb Hct MCV MCH Plt Count Lymph % (Auto) [place] % (Auto) Eos % (Auto) Baso % (Auto) Lymph # Baso # Seg Neutrophils % Lymphocytes % (Manual) Monocytes % (Manual) Nucleated RBC % Seg Neutrophils # Seg Neutrophils # Man Monocytes # (Manual) PT INR Activated Clotting Time POC ABG pH POC ABG pCO2 POC ABG pO2 Sodium Potassium Chloride Carbon Dioxide BUN Creatinine Glucose POC Glucose 140 H 142 H Calcium Magnesium Direct Bilirubin AST 158 H ALT 184 H Alkaline Phosphatase 170 H Total Creatine Kinase CK-MB (CK-2) CK-MB (CK-2) Rel Index Troponin T C-Reactive Protein Total Protein Albumin 2.8 L Triglycerides Ur Specific [place] Urine WBC (Auto) Miscellaneous Test 04/12/17 04/12/17 04/13/17 21:36 21:36 01:37 WBC RBC Hgb Hct MCV MCH Plt Count Lymph % (Auto) [place] % (Auto) Eos % (Auto) Baso % (Auto) Lymph # Baso # Seg Neutrophils % Lymphocytes % (Manual) Monocytes % (Manual) Nucleated RBC % Seg Neutrophils # Seg Neutrophils # Man Monocytes # (Manual) PT INR Activated Clotting Time POC ABG pH POC ABG pCO2 POC ABG pO2 Sodium Potassium Chloride Carbon Dioxide BUN Creatinine Glucose POC Glucose 126 H Calcium Magnesium Direct Bilirubin AST ALT Alkaline Phosphatase Total Creatine Kinase 1404 H CK-MB (CK-2) 8.0 H CK-MB (CK-2) Rel Index Troponin T 0.767 H* C-Reactive Protein Total Protein Albumin Triglycerides Ur Specific [place] Urine WBC (Auto) Miscellaneous Test 04/13/17 04/13/17 04/13/17 04:45 04:52 12:17 WBC RBC Hgb Hct MCV MCH Plt Count Lymph % (Auto) [place] % (Auto) Eos % (Auto) Baso % (Auto) Lymph # Baso # Seg Neutrophils % Lymphocytes % (Manual) Monocytes % (Manual) Nucleated RBC % Seg Neutrophils # Seg Neutrophils # Man Monocytes # (Manual) PT INR Activated Clotting Time POC ABG pH POC ABG pCO2 POC ABG pO2 Sodium 148 H Potassium Chloride 112.8 H Carbon Dioxide BUN 33 H Creatinine 0.4 L Glucose 121 H POC Glucose 126 H 149 H Calcium Magnesium Direct Bilirubin AST 160 H ALT 189 H Alkaline Phosphatase 166 H Total Creatine Kinase CK-MB (CK-2) CK-MB (CK-2) Rel Index Troponin T C-Reactive Protein Total Protein Albumin 2.6 L Triglycerides Ur Specific [place] Urine WBC (Auto) Miscellaneous Test 04/13/17 04/14/17 04/14/17 17:45 00:20 00:45 WBC RBC Hgb Hct MCV MCH Plt Count Lymph % (Auto) [place] % (Auto) Eos % (Auto) Baso % (Auto) Lymph # Baso # Seg Neutrophils % Lymphocytes % (Manual) Monocytes % (Manual) Nucleated RBC % Seg Neutrophils # Seg Neutrophils # Man Monocytes # (Manual) PT INR Activated Clotting Time POC ABG pH POC ABG pCO2 POC ABG pO2 Sodium Potassium Chloride Carbon Dioxide BUN Creatinine Glucose POC Glucose 130 H 144 H 144 H Calcium Magnesium Direct Bilirubin AST ALT Alkaline Phosphatase Total Creatine Kinase CK-MB (CK-2) CK-MB (CK-2) Rel Index Troponin T C-Reactive Protein Total Protein Albumin Triglycerides Ur Specific [place] Urine WBC (Auto) Miscellaneous Test 04/14/17 04/14/17 04/14/17 05:40 11:06 11:31 WBC RBC Hgb Hct MCV MCH Plt Count Lymph % (Auto) [place] % (Auto) Eos % (Auto) Baso % (Auto) Lymph # Baso # Seg Neutrophils % Lymphocytes % (Manual) Monocytes % (Manual) Nucleated RBC % Seg Neutrophils # Seg Neutrophils # Man Monocytes # (Manual) PT INR Activated Clotting Time POC ABG pH POC ABG pCO2 POC ABG pO2 Sodium Potassium Chloride Carbon Dioxide BUN Creatinine Glucose POC Glucose 139 H 123 H Calcium Magnesium Direct Bilirubin AST ALT Alkaline Phosphatase Total Creatine Kinase CK-MB (CK-2) CK-MB (CK-2) Rel Index Troponin T C-Reactive Protein Total Protein Albumin Triglycerides Ur Specific [place] 1.033 H Urine WBC (Auto) > 182.0 H Miscellaneous Test 04/14/17 04/14/17 04/15/17 18:00 23:52 05:15 WBC 12.5 H RBC 3.38 L Hgb 10.6 L Hct 32.7 L MCV 97 H MCH Plt Count 107 L Lymph % (Auto) 8.7 L [place] % (Auto) Eos % (Auto) Baso % (Auto) Lymph # 1.1 L Baso # Seg Neutrophils % 86.1 H Lymphocytes % (Manual) Monocytes % (Manual) Nucleated RBC % Seg Neutrophils # 10.7 H Seg Neutrophils # Man Monocytes # (Manual) PT INR Activated Clotting Time POC ABG pH POC ABG pCO2 POC ABG pO2 Sodium Potassium Chloride Carbon Dioxide BUN Creatinine Glucose POC Glucose 133 H 133 H Calcium Magnesium Direct Bilirubin AST ALT Alkaline Phosphatase Total Creatine Kinase CK-MB (CK-2) CK-MB (CK-2) Rel Index Troponin T C-Reactive Protein Total Protein Albumin Triglycerides Ur Specific [place] Urine WBC (Auto) Miscellaneous Test 04/15/17 04/15/17 04/15/17 05:15 05:25 11:50 WBC RBC Hgb Hct MCV MCH Plt Count Lymph % (Auto) [place] % (Auto) Eos % (Auto) Baso % (Auto) Lymph # Baso # Seg Neutrophils % Lymphocytes % (Manual) Monocytes % (Manual) Nucleated RBC % Seg Neutrophils # Seg Neutrophils # Man Monocytes # (Manual) PT INR Activated Clotting Time POC ABG pH POC ABG pCO2 POC ABG pO2 Sodium 149 H Potassium 3.5 L Chloride 114.1 H Carbon Dioxide 21 L BUN 29 H Creatinine 0.4 L Glucose 128 H POC Glucose 133 H 107 H Calcium 8.3 L Magnesium Direct Bilirubin 0.4 H AST 149 H ALT 182 H Alkaline Phosphatase 143 H Total Creatine Kinase CK-MB (CK-2) CK-MB (CK-2) Rel Index Troponin T C-Reactive Protein Total Protein Albumin 2.5 L Triglycerides Ur Specific [place] Urine WBC (Auto) Miscellaneous Test 04/15/17 04/16/17 04/16/17 16:55 00:02 03:17 WBC RBC 3.39 L Hgb 10.5 L Hct 32.4 L MCV 96 H MCH Plt Count 106 L Lymph % (Auto) 6.7 L [place] % (Auto) Eos % (Auto) Baso % (Auto) Lymph # 0.6 L Baso # Seg Neutrophils % 86.8 H Lymphocytes % (Manual) Monocytes % (Manual) Nucleated RBC % Seg Neutrophils # 8.2 H Seg Neutrophils # Man Monocytes # (Manual) PT INR Activated Clotting Time POC ABG pH POC ABG pCO2 POC ABG pO2 Sodium Potassium Chloride Carbon Dioxide BUN Creatinine Glucose POC Glucose 146 H 148 H Calcium Magnesium Direct Bilirubin AST ALT Alkaline Phosphatase Total Creatine Kinase CK-MB (CK-2) CK-MB (CK-2) Rel Index Troponin T C-Reactive Protein Total Protein Albumin Triglycerides Ur Specific [place] Urine WBC (Auto) Miscellaneous Test 04/16/17 04/16/17 04/16/17 03:17 05:19 11:13 WBC RBC Hgb Hct MCV MCH Plt Count Lymph % (Auto) [place] % (Auto) Eos % (Auto) Baso % (Auto) Lymph # Baso # Seg Neutrophils % Lymphocytes % (Manual) Monocytes % (Manual) Nucleated RBC % Seg Neutrophils # Seg Neutrophils # Man Monocytes # (Manual) PT INR Activated Clotting Time POC ABG pH POC ABG pCO2 POC ABG pO2 Sodium 149 H Potassium Chloride 111.1 H Carbon Dioxide 20 L BUN 27 H Creatinine 0.3 L Glucose 156 H POC Glucose 171 H 169 H Calcium 8.3 L Magnesium Direct Bilirubin AST ALT Alkaline Phosphatase Total Creatine Kinase CK-MB (CK-2) CK-MB (CK-2) Rel Index Troponin T C-Reactive Protein Total Protein Albumin Triglycerides Ur Specific [place] Urine WBC (Auto) Miscellaneous Test 04/16/17 04/17/17 04/17/17 17:03 00:00 05:09 WBC RBC Hgb Hct MCV MCH Plt Count Lymph % (Auto) [place] % (Auto) Eos % (Auto) Baso % (Auto) Lymph # Baso # Seg Neutrophils % Lymphocytes % (Manual) Monocytes % (Manual) Nucleated RBC % Seg Neutrophils # Seg Neutrophils # Man Monocytes # (Manual) PT INR Activated Clotting Time POC ABG pH POC ABG pCO2 POC ABG pO2 Sodium Potassium Chloride Carbon Dioxide BUN Creatinine Glucose POC Glucose 151 H 165 H 145 H Calcium Magnesium Direct Bilirubin AST ALT Alkaline Phosphatase Total Creatine Kinase CK-MB (CK-2) CK-MB (CK-2) Rel Index Troponin T C-Reactive Protein Total Protein Albumin Triglycerides Ur Specific [place] Urine WBC (Auto) Miscellaneous Test 04/17/17 04/17/17 04/18/17 11:38 17:47 00:01 WBC RBC Hgb Hct MCV MCH Plt Count Lymph % (Auto) [place] % (Auto) Eos % (Auto) Baso % (Auto) Lymph # Baso # Seg Neutrophils % Lymphocytes % (Manual) Monocytes % (Manual) Nucleated RBC % Seg Neutrophils # Seg Neutrophils # Man Monocytes # (Manual) PT INR Activated Clotting Time POC ABG pH POC ABG pCO2 POC ABG pO2 Sodium Potassium Chloride Carbon Dioxide BUN Creatinine Glucose POC Glucose 170 H 161 H 131 H Calcium Magnesium Direct Bilirubin AST ALT Alkaline Phosphatase Total Creatine Kinase CK-MB (CK-2) CK-MB (CK-2) Rel Index Troponin T C-Reactive Protein Total Protein Albumin Triglycerides Ur Specific [place] Urine WBC (Auto) Miscellaneous Test 04/18/17 04/18/17 04/18/17 03:55 03:55 05:30 WBC RBC 3.05 L Hgb 9.8 L Hct 29.0 L MCV 95 H MCH Plt Count 113 L Lymph % (Auto) [place] % (Auto) Eos % (Auto) 5.3 H Baso % (Auto) Lymph # Baso # Seg Neutrophils % 71.5 H Lymphocytes % (Manual) Monocytes % (Manual) Nucleated RBC % Seg Neutrophils # Seg Neutrophils # Man Monocytes # (Manual) PT INR Activated Clotting Time POC ABG pH 7.460 H POC ABG pCO2 30.8 L POC ABG pO2 129 H Sodium Potassium Chloride Carbon Dioxide 21 L BUN 25 H Creatinine 0.4 L Glucose 123 H POC Glucose Calcium 8.3 L Magnesium Direct Bilirubin AST ALT Alkaline Phosphatase Total Creatine Kinase CK-MB (CK-2) CK-MB (CK-2) Rel Index Troponin T C-Reactive Protein Total Protein Albumin Triglycerides Ur Specific [place] Urine WBC (Auto) Miscellaneous Test 04/18/17 04/18/17 04/19/17 17:10 23:40 04:36 WBC RBC 3.21 L Hgb 10.2 L Hct 30.4 L MCV 95 H MCH Plt Count 131 L Lymph % (Auto) 12.1 L [place] % (Auto) Eos % (Auto) 4.7 H Baso % (Auto) 2.4 H Lymph # 0.9 L Baso # 0.2 H Seg Neutrophils % 75.0 H Lymphocytes % (Manual) Monocytes % (Manual) Nucleated RBC % Seg Neutrophils # Seg Neutrophils # Man Monocytes # (Manual) PT INR Activated Clotting Time POC ABG pH POC ABG pCO2 POC ABG pO2 Sodium Potassium Chloride Carbon Dioxide BUN Creatinine Glucose POC Glucose 135 H 157 H Calcium Magnesium Direct Bilirubin AST ALT Alkaline Phosphatase Total Creatine Kinase CK-MB (CK-2) CK-MB (CK-2) Rel Index Troponin T C-Reactive Protein Total Protein Albumin Triglycerides Ur Specific [place] Urine WBC (Auto) Miscellaneous Test 04/19/17 04/19/17 04/19/17 04:36 05:12 06:50 WBC RBC Hgb Hct MCV MCH Plt Count Lymph % (Auto) [place] % (Auto) Eos % (Auto) Baso % (Auto) Lymph # Baso # Seg Neutrophils % Lymphocytes % (Manual) Monocytes % (Manual) Nucleated RBC % Seg Neutrophils # Seg Neutrophils # Man Monocytes # (Manual) PT INR Activated Clotting Time POC ABG pH 7.516 H POC ABG pCO2 28.0 L POC ABG pO2 Sodium Potassium Chloride Carbon Dioxide 21 L BUN 23 H Creatinine 0.2 L Glucose 137 H POC Glucose 131 H Calcium 7.9 L Magnesium Direct Bilirubin AST ALT Alkaline Phosphatase Total Creatine Kinase CK-MB (CK-2) CK-MB (CK-2) Rel Index Troponin T C-Reactive Protein Total Protein Albumin Triglycerides Ur Specific [place] Urine WBC (Auto) Miscellaneous Test 04/19/17 04/19/17 04/20/17 12:36 17:42 00:12 WBC RBC Hgb Hct MCV MCH Plt Count Lymph % (Auto) [place] % (Auto) Eos % (Auto) Baso % (Auto) Lymph # Baso # Seg Neutrophils % Lymphocytes % (Manual) Monocytes % (Manual) Nucleated RBC % Seg Neutrophils # Seg Neutrophils # Man Monocytes # (Manual) PT INR Activated Clotting Time POC ABG pH POC ABG pCO2 POC ABG pO2 Sodium Potassium Chloride Carbon Dioxide BUN Creatinine Glucose POC Glucose 128 H 140 H 132 H Calcium Magnesium Direct Bilirubin AST ALT Alkaline Phosphatase Total Creatine Kinase CK-MB (CK-2) CK-MB (CK-2) Rel Index Troponin T C-Reactive Protein Total Protein Albumin Triglycerides Ur Specific [place] Urine WBC (Auto) Miscellaneous Test 04/20/17 04/20/17 04/20/17 03:35 03:35 05:10 WBC RBC 3.34 L Hgb 10.4 L Hct 31.6 L MCV 95 H MCH Plt Count Lymph % (Auto) 12.9 L [place] % (Auto) Eos % (Auto) Baso % (Auto) Lymph # Baso # Seg Neutrophils % 77.3 H Lymphocytes % (Manual) Monocytes % (Manual) Nucleated RBC % Seg Neutrophils # Seg Neutrophils # Man Monocytes # (Manual) PT INR Activated Clotting Time POC ABG pH POC ABG pCO2 POC ABG pO2 Sodium Potassium Chloride Carbon Dioxide BUN Creatinine 0.3 L Glucose 155 H POC Glucose 135 H Calcium 7.8 L Magnesium Direct Bilirubin AST ALT Alkaline Phosphatase Total Creatine Kinase CK-MB (CK-2) CK-MB (CK-2) Rel Index Troponin T C-Reactive Protein Total Protein Albumin Triglycerides Ur Specific [place] Urine WBC (Auto) Miscellaneous Test 04/20/17 04/20/17 04/21/17 12:49 18:21 00:05 WBC RBC Hgb Hct MCV MCH Plt Count Lymph % (Auto) [place] % (Auto) Eos % (Auto) Baso % (Auto) Lymph # Baso # Seg Neutrophils % Lymphocytes % (Manual) Monocytes % (Manual) Nucleated RBC % Seg Neutrophils # Seg Neutrophils # Man Monocytes # (Manual) PT INR Activated Clotting Time POC ABG pH POC ABG pCO2 POC ABG pO2 Sodium Potassium Chloride Carbon Dioxide BUN Creatinine Glucose POC Glucose 155 H 165 H 141 H Calcium Magnesium Direct Bilirubin AST ALT Alkaline Phosphatase Total Creatine Kinase CK-MB (CK-2) CK-MB (CK-2) Rel Index Troponin T C-Reactive Protein Total Protein Albumin Triglycerides Ur Specific [place] Urine WBC (Auto) Miscellaneous Test 04/21/17 04/21/17 04/21/17 06:00 12:11 17:04 WBC RBC Hgb Hct MCV MCH Plt Count Lymph % (Auto) [place] % (Auto) Eos % (Auto) Baso % (Auto) Lymph # Baso # Seg Neutrophils % Lymphocytes % (Manual) Monocytes % (Manual) Nucleated RBC % Seg Neutrophils # Seg Neutrophils # Man Monocytes # (Manual) PT INR Activated Clotting Time POC ABG pH POC ABG pCO2 POC ABG pO2 Sodium Potassium Chloride Carbon Dioxide BUN Creatinine Glucose POC Glucose 152 H 165 H 156 H Calcium Magnesium Direct Bilirubin AST ALT Alkaline Phosphatase Total Creatine Kinase CK-MB (CK-2) CK-MB (CK-2) Rel Index Troponin T C-Reactive Protein Total Protein Albumin Triglycerides Ur Specific [place] Urine WBC (Auto) Miscellaneous Test 04/21/17 04/21/17 04/22/17 22:00 23:59 05:49 WBC RBC Hgb Hct MCV MCH Plt Count Lymph % (Auto) [place] % (Auto) Eos % (Auto) Baso % (Auto) Lymph # Baso # Seg Neutrophils % Lymphocytes % (Manual) Monocytes % (Manual) Nucleated RBC % Seg Neutrophils # Seg Neutrophils # Man Monocytes # (Manual) PT INR Activated Clotting Time POC ABG pH POC ABG pCO2 POC ABG pO2 Sodium Potassium Chloride Carbon Dioxide BUN Creatinine Glucose POC Glucose 166 H 173 H Calcium Magnesium Direct Bilirubin AST ALT Alkaline Phosphatase Total Creatine Kinase CK-MB (CK-2) CK-MB (CK-2) Rel Index Troponin T C-Reactive Protein Total Protein Albumin Triglycerides Ur Specific [place] Urine WBC (Auto) 10.0 H Miscellaneous Test 04/22/17 04/22/17 04/23/17 11:11 18:04 00:37 WBC RBC Hgb Hct MCV MCH Plt Count Lymph % (Auto) [place] % (Auto) Eos % (Auto) Baso % (Auto) Lymph # Baso # Seg Neutrophils % Lymphocytes % (Manual) Monocytes % (Manual) Nucleated RBC % Seg Neutrophils # Seg Neutrophils # Man Monocytes # (Manual) PT INR Activated Clotting Time POC ABG pH POC ABG pCO2 POC ABG pO2 Sodium Potassium Chloride Carbon Dioxide BUN Creatinine Glucose POC Glucose 172 H 140 H 135 H Calcium Magnesium Direct Bilirubin AST ALT Alkaline Phosphatase Total Creatine Kinase CK-MB (CK-2) CK-MB (CK-2) Rel Index Troponin T C-Reactive Protein Total Protein Albumin Triglycerides Ur Specific [place] Urine WBC (Auto) Miscellaneous Test 04/23/17 04/23/17 04/23/17 05:33 06:20 11:10 WBC RBC 3.19 L Hgb 9.9 L Hct 30.0 L MCV MCH Plt Count Lymph % (Auto) 8.0 L [place] % (Auto) Eos % (Auto) Baso % (Auto) Lymph # 0.8 L Baso # Seg Neutrophils % 84.5 H Lymphocytes % (Manual) Monocytes % (Manual) Nucleated RBC % Seg Neutrophils # 8.2 H Seg Neutrophils # Man Monocytes # (Manual) PT INR Activated Clotting Time POC ABG pH POC ABG pCO2 POC ABG pO2 Sodium Potassium Chloride Carbon Dioxide BUN Creatinine Glucose POC Glucose 134 H 134 H Calcium Magnesium Direct Bilirubin AST ALT Alkaline Phosphatase Total Creatine Kinase CK-MB (CK-2) CK-MB (CK-2) Rel Index Troponin T C-Reactive Protein Total Protein Albumin Triglycerides Ur Specific [place] Urine WBC (Auto) Miscellaneous Test 04/23/17 04/24/17 04/24/17 17:26 00:53 06:46 WBC RBC Hgb Hct MCV MCH Plt Count Lymph % (Auto) [place] % (Auto) Eos % (Auto) Baso % (Auto) Lymph # Baso # Seg Neutrophils % Lymphocytes % (Manual) Monocytes % (Manual) Nucleated RBC % Seg Neutrophils # Seg Neutrophils # Man Monocytes # (Manual) PT INR Activated Clotting Time POC ABG pH POC ABG pCO2 POC ABG pO2 Sodium Potassium Chloride Carbon Dioxide BUN Creatinine Glucose POC Glucose 164 H 146 H 125 H Calcium Magnesium Direct Bilirubin AST ALT Alkaline Phosphatase Total Creatine Kinase CK-MB (CK-2) CK-MB (CK-2) Rel Index Troponin T C-Reactive Protein Total Protein Albumin Triglycerides Ur Specific [place] Urine WBC (Auto) Miscellaneous Test 04/24/17 04/24/17 04/24/17 11:55 17:50 23:36 WBC RBC Hgb Hct MCV MCH Plt Count Lymph % (Auto) [place] % (Auto) Eos % (Auto) Baso % (Auto) Lymph # Baso # Seg Neutrophils % Lymphocytes % (Manual) Monocytes % (Manual) Nucleated RBC % Seg Neutrophils # Seg Neutrophils # Man Monocytes # (Manual) PT INR Activated Clotting Time POC ABG pH POC ABG pCO2 POC ABG pO2 Sodium Potassium Chloride Carbon Dioxide BUN Creatinine Glucose POC Glucose 156 H 146 H 131 H Calcium Magnesium Direct Bilirubin AST ALT Alkaline Phosphatase Total Creatine Kinase CK-MB (CK-2) CK-MB (CK-2) Rel Index Troponin T C-Reactive Protein Total Protein Albumin Triglycerides Ur Specific [place] Urine WBC (Auto) Miscellaneous Test 04/25/17 04/25/17 04/25/17 04:51 05:16 07:07 WBC RBC Hgb Hct MCV MCH Plt Count Lymph % (Auto) [place] % (Auto) Eos % (Auto) Baso % (Auto) Lymph # Baso # Seg Neutrophils % Lymphocytes % (Manual) Monocytes % (Manual) Nucleated RBC % Seg Neutrophils # Seg Neutrophils # Man Monocytes # (Manual) PT INR Activated Clotting Time POC ABG pH POC ABG pCO2 POC ABG pO2 Sodium Potassium Chloride Carbon Dioxide BUN Creatinine Glucose POC Glucose 139 H Calcium Magnesium Direct Bilirubin AST 105 H ALT 204 H Alkaline Phosphatase 189 H Total Creatine Kinase CK-MB (CK-2) CK-MB (CK-2) Rel Index Troponin T C-Reactive Protein Total Protein Albumin 2.4 L Triglycerides Ur Specific [place] Urine WBC (Auto) Miscellaneous Test Flexitest 1 H 04/25/17 04/25/17 04/25/17 12:29 17:23 23:32 WBC RBC Hgb Hct MCV MCH Plt Count Lymph % (Auto) [place] % (Auto) Eos % (Auto) Baso % (Auto) Lymph # Baso # Seg Neutrophils % Lymphocytes % (Manual) Monocytes % (Manual) Nucleated RBC % Seg Neutrophils # Seg Neutrophils # Man Monocytes # (Manual) PT INR Activated Clotting Time POC ABG pH POC ABG pCO2 POC ABG pO2 Sodium Potassium Chloride Carbon Dioxide BUN Creatinine Glucose POC Glucose 132 H 133 H 128 H Calcium Magnesium Direct Bilirubin AST ALT Alkaline Phosphatase Total Creatine Kinase CK-MB (CK-2) CK-MB (CK-2) Rel Index Troponin T C-Reactive Protein Total Protein Albumin Triglycerides Ur Specific [place] Urine WBC (Auto) Miscellaneous Test 04/26/17 04/26/17 04/26/17 05:24 11:28 17:09 WBC RBC Hgb Hct MCV MCH Plt Count Lymph % (Auto) [place] % (Auto) Eos % (Auto) Baso % (Auto) Lymph # Baso # Seg Neutrophils % Lymphocytes % (Manual) Monocytes % (Manual) Nucleated RBC % Seg Neutrophils # Seg Neutrophils # Man Monocytes # (Manual) PT INR Activated Clotting Time POC ABG pH POC ABG pCO2 POC ABG pO2 Sodium Potassium Chloride Carbon Dioxide BUN Creatinine Glucose POC Glucose 132 H 146 H 141 H Calcium Magnesium Direct Bilirubin AST ALT Alkaline Phosphatase Total Creatine Kinase CK-MB (CK-2) CK-MB (CK-2) Rel Index Troponin T C-Reactive Protein Total Protein Albumin Triglycerides Ur Specific [place] Urine WBC (Auto) Miscellaneous Test 04/26/17 04/27/17 04/27/17 23:52 05:40 05:40 WBC RBC 3.22 L Hgb 10.0 L Hct 29.9 L MCV MCH Plt Count Lymph % (Auto) [place] % (Auto) Eos % (Auto) Baso % (Auto) Lymph # Baso # Seg Neutrophils % 76.6 H Lymphocytes % (Manual) Monocytes % (Manual) Nucleated RBC % Seg Neutrophils # Seg Neutrophils # Man Monocytes # (Manual) PT INR Activated Clotting Time POC ABG pH POC ABG pCO2 POC ABG pO2 Sodium Potassium Chloride Carbon Dioxide BUN Creatinine Glucose POC Glucose 140 H Calcium Magnesium Direct Bilirubin AST 66 H ALT 137 H Alkaline Phosphatase 169 H Total Creatine Kinase CK-MB (CK-2) CK-MB (CK-2) Rel Index Troponin T C-Reactive Protein Total Protein 6.2 L Albumin 2.6 L Triglycerides Ur Specific [place] Urine WBC (Auto) Miscellaneous Test 04/27/17 04/27/17 04/27/17 05:40 06:10 11:13 WBC RBC Hgb Hct MCV MCH Plt Count Lymph % (Auto) [place] % (Auto) Eos % (Auto) Baso % (Auto) Lymph # Baso # Seg Neutrophils % Lymphocytes % (Manual) Monocytes % (Manual) Nucleated RBC % Seg Neutrophils # Seg Neutrophils # Man Monocytes # (Manual) PT INR Activated Clotting Time POC ABG pH POC ABG pCO2 POC ABG pO2 Sodium Potassium Chloride Carbon Dioxide BUN Creatinine 0.2 L Glucose 139 H POC Glucose 130 H 151 H Calcium Magnesium Direct Bilirubin AST ALT Alkaline Phosphatase Total Creatine Kinase CK-MB (CK-2) CK-MB (CK-2) Rel Index Troponin T C-Reactive Protein Total Protein Albumin Triglycerides Ur Specific [place] Urine WBC (Auto) Miscellaneous Test 04/27/17 04/27/17 04/28/17 17:37 23:19 05:24 WBC RBC Hgb Hct MCV MCH Plt Count Lymph % (Auto) [place] % (Auto) Eos % (Auto) Baso % (Auto) Lymph # Baso # Seg Neutrophils % Lymphocytes % (Manual) Monocytes % (Manual) Nucleated RBC % Seg Neutrophils # Seg Neutrophils # Man Monocytes # (Manual) PT INR Activated Clotting Time POC ABG pH POC ABG pCO2 POC ABG pO2 Sodium Potassium Chloride Carbon Dioxide BUN Creatinine Glucose POC Glucose 159 H 130 H 132 H Calcium Magnesium Direct Bilirubin AST ALT Alkaline Phosphatase Total Creatine Kinase CK-MB (CK-2) CK-MB (CK-2) Rel Index Troponin T C-Reactive Protein Total Protein Albumin Triglycerides Ur Specific [place] Urine WBC (Auto) Miscellaneous Test 04/28/17 04/28/17 04/28/17 11:15 17:38 23:23 WBC RBC Hgb Hct MCV MCH Plt Count Lymph % (Auto) [place] % (Auto) Eos % (Auto) Baso % (Auto) Lymph # Baso # Seg Neutrophils % Lymphocytes % (Manual) Monocytes % (Manual) Nucleated RBC % Seg Neutrophils # Seg Neutrophils # Man Monocytes # (Manual) PT INR Activated Clotting Time POC ABG pH POC ABG pCO2 POC ABG pO2 Sodium Potassium Chloride Carbon Dioxide BUN Creatinine Glucose POC Glucose 162 H 133 H 138 H Calcium Magnesium Direct Bilirubin AST ALT Alkaline Phosphatase Total Creatine Kinase CK-MB (CK-2) CK-MB (CK-2) Rel Index Troponin T C-Reactive Protein Total Protein Albumin Triglycerides Ur Specific [place] Urine WBC (Auto) Miscellaneous Test 04/29/17 04/29/17 04/29/17 05:15 12:55 17:21 WBC RBC Hgb Hct MCV MCH Plt Count Lymph % (Auto) [place] % (Auto) Eos % (Auto) Baso % (Auto) Lymph # Baso # Seg Neutrophils % Lymphocytes % (Manual) Monocytes % (Manual) Nucleated RBC % Seg Neutrophils # Seg Neutrophils # Man Monocytes # (Manual) PT INR Activated Clotting Time POC ABG pH POC ABG pCO2 POC ABG pO2 Sodium Potassium Chloride Carbon Dioxide BUN Creatinine Glucose POC Glucose 135 H 127 H 138 H Calcium Magnesium Direct Bilirubin AST ALT Alkaline Phosphatase Total Creatine Kinase CK-MB (CK-2) CK-MB (CK-2) Rel Index Troponin T C-Reactive Protein Total Protein Albumin Triglycerides Ur Specific [place] Urine WBC (Auto) Miscellaneous Test 04/29/17 04/30/17 04/30/17 23:52 04:55 12:22 WBC RBC Hgb Hct MCV MCH Plt Count Lymph % (Auto) [place] % (Auto) Eos % (Auto) Baso % (Auto) Lymph # Baso # Seg Neutrophils % Lymphocytes % (Manual) Monocytes % (Manual) Nucleated RBC % Seg Neutrophils # Seg Neutrophils # Man Monocytes # (Manual) PT INR Activated Clotting Time POC ABG pH POC ABG pCO2 POC ABG pO2 Sodium Potassium Chloride Carbon Dioxide BUN Creatinine Glucose POC Glucose 142 H 146 H 132 H Calcium Magnesium Direct Bilirubin AST ALT Alkaline Phosphatase Total Creatine Kinase CK-MB (CK-2) CK-MB (CK-2) Rel Index Troponin T C-Reactive Protein Total Protein Albumin Triglycerides Ur Specific [place] Urine WBC (Auto) Miscellaneous Test 04/30/17 04/30/17 04/30/17 14:25 17:47 18:20 WBC RBC Hgb Hct MCV MCH Plt Count Lymph % (Auto) [place] % (Auto) Eos % (Auto) Baso % (Auto) Lymph # Baso # Seg Neutrophils % Lymphocytes % (Manual) Monocytes % (Manual) Nucleated RBC % Seg Neutrophils # Seg Neutrophils # Man Monocytes # (Manual) PT INR Activated Clotting Time POC ABG pH 7.551 H POC ABG pCO2 32.7 L POC ABG pO2 Sodium Potassium Chloride Carbon Dioxide BUN 21 H Creatinine 0.2 L Glucose 141 H POC Glucose 139 H Calcium Magnesium Direct Bilirubin AST ALT Alkaline Phosphatase Total Creatine Kinase CK-MB (CK-2) CK-MB (CK-2) Rel Index Troponin T C-Reactive Protein Total Protein Albumin Triglycerides Ur Specific [place] Urine WBC (Auto) Miscellaneous Test 05/01/17 05/01/17 05/01/17 01:26 05:30 05:30 WBC RBC 3.49 L Hgb 10.3 L Hct 31.9 L MCV MCH Plt Count Lymph % (Auto) [place] % (Auto) 8.1 H Eos % (Auto) Baso % (Auto) Lymph # Baso # Seg Neutrophils % 71.3 H Lymphocytes % (Manual) Monocytes % (Manual) Nucleated RBC % Seg Neutrophils # Seg Neutrophils # Man Monocytes # (Manual) PT INR Activated Clotting Time POC ABG pH POC ABG pCO2 POC ABG pO2 Sodium 136 L Potassium Chloride 97.6 L Carbon Dioxide BUN Creatinine 0.2 L Glucose 123 H POC Glucose 116 H Calcium Magnesium Direct Bilirubin AST 71 H ALT 125 H Alkaline Phosphatase 158 H Total Creatine Kinase CK-MB (CK-2) CK-MB (CK-2) Rel Index Troponin T C-Reactive Protein Total Protein Albumin 2.6 L Triglycerides Ur Specific [place] Urine WBC (Auto) Miscellaneous Test 05/01/17 05/01/17 05/02/17 11:59 17:23 00:08 WBC RBC Hgb Hct MCV MCH Plt Count Lymph % (Auto) [place] % (Auto) Eos % (Auto) Baso % (Auto) Lymph # Baso # Seg Neutrophils % Lymphocytes % (Manual) Monocytes % (Manual) Nucleated RBC % Seg Neutrophils # Seg Neutrophils # Man Monocytes # (Manual) PT INR Activated Clotting Time POC ABG pH POC ABG pCO2 POC ABG pO2 Sodium Potassium Chloride Carbon Dioxide BUN Creatinine Glucose POC Glucose 118 H 144 H 122 H Calcium Magnesium Direct Bilirubin AST ALT Alkaline Phosphatase Total Creatine Kinase CK-MB (CK-2) CK-MB (CK-2) Rel Index Troponin T C-Reactive Protein Total Protein Albumin Triglycerides Ur Specific [place] Urine WBC (Auto) Miscellaneous Test 05/02/17 05/02/17 05/02/17 05:50 11:21 17:48 WBC RBC Hgb Hct MCV MCH Plt Count Lymph % (Auto) [place] % (Auto) Eos % (Auto) Baso % (Auto) Lymph # Baso # Seg Neutrophils % Lymphocytes % (Manual) Monocytes % (Manual) Nucleated RBC % Seg Neutrophils # Seg Neutrophils # Man Monocytes # (Manual) PT INR Activated Clotting Time POC ABG pH POC ABG pCO2 POC ABG pO2 Sodium Potassium Chloride Carbon Dioxide BUN Creatinine Glucose POC Glucose 120 H 121 H 140 H Calcium Magnesium Direct Bilirubin AST ALT Alkaline Phosphatase Total Creatine Kinase CK-MB (CK-2) CK-MB (CK-2) Rel Index Troponin T C-Reactive Protein Total Protein Albumin Triglycerides Ur Specific [place] Urine WBC (Auto) Miscellaneous Test 05/02/17 05/03/17 05/03/17 23:12 05:35 11:52 WBC RBC Hgb Hct MCV MCH Plt Count Lymph % (Auto) [place] % (Auto) Eos % (Auto) Baso % (Auto) Lymph # Baso # Seg Neutrophils % Lymphocytes % (Manual) Monocytes % (Manual) Nucleated RBC % Seg Neutrophils # Seg Neutrophils # Man Monocytes # (Manual) PT INR Activated Clotting Time POC ABG pH POC ABG pCO2 POC ABG pO2 Sodium Potassium Chloride Carbon Dioxide BUN Creatinine Glucose POC Glucose 128 H 113 H 126 H Calcium Magnesium Direct Bilirubin AST ALT Alkaline Phosphatase Total Creatine Kinase CK-MB (CK-2) CK-MB (CK-2) Rel Index Troponin T C-Reactive Protein Total Protein Albumin Triglycerides Ur Specific [place] Urine WBC (Auto) Miscellaneous Test 05/03/17 05/03/17 05/04/17 17:29 23:26 04:55 WBC RBC Hgb Hct MCV MCH Plt Count Lymph % (Auto) [place] % (Auto) Eos % (Auto) Baso % (Auto) Lymph # Baso # Seg Neutrophils % Lymphocytes % (Manual) Monocytes % (Manual) Nucleated RBC % Seg Neutrophils # Seg Neutrophils # Man Monocytes # (Manual) PT INR Activated Clotting Time POC ABG pH POC ABG pCO2 POC ABG pO2 Sodium Potassium Chloride Carbon Dioxide BUN Creatinine Glucose POC Glucose 141 H 129 H 126 H Calcium Magnesium Direct Bilirubin AST ALT Alkaline Phosphatase Total Creatine Kinase CK-MB (CK-2) CK-MB (CK-2) Rel Index Troponin T C-Reactive Protein Total Protein Albumin Triglycerides Ur Specific [place] Urine WBC (Auto) Miscellaneous Test 05/04/17 05/04/17 05/05/17 12:09 17:46 00:06 WBC RBC Hgb Hct MCV MCH Plt Count Lymph % (Auto) [place] % (Auto) Eos % (Auto) Baso % (Auto) Lymph # Baso # Seg Neutrophils % Lymphocytes % (Manual) Monocytes % (Manual) Nucleated RBC % Seg Neutrophils # Seg Neutrophils # Man Monocytes # (Manual) PT INR Activated Clotting Time POC ABG pH POC ABG pCO2 POC ABG pO2 Sodium Potassium Chloride Carbon Dioxide BUN Creatinine Glucose POC Glucose 125 H 125 H 110 H Calcium Magnesium Direct Bilirubin AST ALT Alkaline Phosphatase Total Creatine Kinase CK-MB (CK-2) CK-MB (CK-2) Rel Index Troponin T C-Reactive Protein Total Protein Albumin Triglycerides Ur Specific [place] Urine WBC (Auto) Miscellaneous Test 05/05/17 05/05/17 05/05/17 05:48 11:41 16:19 WBC RBC Hgb Hct MCV MCH Plt Count Lymph % (Auto) [place] % (Auto) Eos % (Auto) Baso % (Auto) Lymph # Baso # Seg Neutrophils % Lymphocytes % (Manual) Monocytes % (Manual) Nucleated RBC % Seg Neutrophils # Seg Neutrophils # Man Monocytes # (Manual) PT INR Activated Clotting Time POC ABG pH POC ABG pCO2 POC ABG pO2 Sodium Potassium Chloride Carbon Dioxide BUN Creatinine Glucose POC Glucose 124 H 122 H 120 H Calcium Magnesium Direct Bilirubin AST ALT Alkaline Phosphatase Total Creatine Kinase CK-MB (CK-2) CK-MB (CK-2) Rel Index Troponin T C-Reactive Protein Total Protein Albumin Triglycerides Ur Specific [place] Urine WBC (Auto) Miscellaneous Test 05/06/17 05/06/17 05/06/17 00:16 05:47 11:42 WBC RBC Hgb Hct MCV MCH Plt Count Lymph % (Auto) [place] % (Auto) Eos % (Auto) Baso % (Auto) Lymph # Baso # Seg Neutrophils % Lymphocytes % (Manual) Monocytes % (Manual) Nucleated RBC % Seg Neutrophils # Seg Neutrophils # Man Monocytes # (Manual) PT INR Activated Clotting Time POC ABG pH POC ABG pCO2 POC ABG pO2 Sodium Potassium Chloride Carbon Dioxide BUN Creatinine Glucose POC Glucose 110 H 142 H 120 H Calcium Magnesium Direct Bilirubin AST ALT Alkaline Phosphatase Total Creatine Kinase CK-MB (CK-2) CK-MB (CK-2) Rel Index Troponin T C-Reactive Protein Total Protein Albumin Triglycerides Ur Specific [place] Urine WBC (Auto) Miscellaneous Test 05/06/17 05/07/17 05/07/17 17:46 00:07 05:28 WBC RBC Hgb Hct MCV MCH Plt Count Lymph % (Auto) [place] % (Auto) Eos % (Auto) Baso % (Auto) Lymph # Baso # Seg Neutrophils % Lymphocytes % (Manual) Monocytes % (Manual) Nucleated RBC % Seg Neutrophils # Seg Neutrophils # Man Monocytes # (Manual) PT INR Activated Clotting Time POC ABG pH POC ABG pCO2 POC ABG pO2 Sodium Potassium Chloride Carbon Dioxide BUN Creatinine Glucose POC Glucose 127 H 145 H 124 H Calcium Magnesium Direct Bilirubin AST ALT Alkaline Phosphatase Total Creatine Kinase CK-MB (CK-2) CK-MB (CK-2) Rel Index Troponin T C-Reactive Protein Total Protein Albumin Triglycerides Ur Specific [place] Urine WBC (Auto) Miscellaneous Test 05/07/17 05/07/17 05/08/17 11:17 17:14 00:03 WBC RBC Hgb Hct MCV MCH Plt Count Lymph % (Auto) [place] % (Auto) Eos % (Auto) Baso % (Auto) Lymph # Baso # Seg Neutrophils % Lymphocytes % (Manual) Monocytes % (Manual) Nucleated RBC % Seg Neutrophils # Seg Neutrophils # Man Monocytes # (Manual) PT INR Activated Clotting Time POC ABG pH POC ABG pCO2 POC ABG pO2 Sodium Potassium Chloride Carbon Dioxide BUN Creatinine Glucose POC Glucose 144 H 125 H 122 H Calcium Magnesium Direct Bilirubin AST ALT Alkaline Phosphatase Total Creatine Kinase CK-MB (CK-2) CK-MB (CK-2) Rel Index Troponin T C-Reactive Protein Total Protein Albumin Triglycerides Ur Specific [place] Urine WBC (Auto) Miscellaneous Test 05/08/17 05:43 WBC RBC Hgb Hct MCV MCH Plt Count Lymph % (Auto) [place] % (Auto) Eos % (Auto) Baso % (Auto) Lymph # Baso # Seg Neutrophils % Lymphocytes % (Manual) Monocytes % (Manual) Nucleated RBC % Seg Neutrophils # Seg Neutrophils # Man Monocytes # (Manual) PT INR Activated Clotting Time POC ABG pH POC ABG pCO2 POC ABG pO2 Sodium Potassium Chloride Carbon Dioxide BUN Creatinine Glucose POC Glucose 117 H Calcium Magnesium Direct Bilirubin AST ALT Alkaline Phosphatase Total Creatine Kinase CK-MB (CK-2) CK-MB (CK-2) Rel Index Troponin T C-Reactive Protein Total Protein Albumin Triglycerides Ur Specific [place] Urine WBC (Auto) Miscellaneous Test
[2017-05-08] MEDS: TRANSDERM-SCOP TD SCH (14:27)
[2017-05-09] MEDS: NOVOLOG SUB-Q SCH ×2 (00:16→06:16)
--- NOTE | 2017-05-09 09:09 | Progress Note ---
Assessment and Plan Assessment and plan: Graciela fib arrest status post CPR anoxic encephalopathy respiratory failure vent dependent tracheostomy and PEG placement MRSA pneumonia with status. Sepsis poor prognosis, full CODE STATUS -- acute hypoxic hypercapnic respiratory failure ; status post trach, vent dependent, on weaning parameters --s/p cardiac arrest ; status post CPR -- anoxic encephalopathy, vegetative state, supportive care --Acute anterior STEMI; status post PCI, cardiology following --MRSA pneumonia/aspiration pneumonia, contact isolation patient received full treatment with Zyvox --Hypertension; BP in the lower range. --Febrile illness; aspiration pneumonia; sepsis; on antibiotics ID following --Cardiogenic shock; off pressors, closely monitor --s/p trach and PEG, continue PEG feeds --Severe Protein calorie malnutrition: Peg feeds and nutrition suppliments --DVT prophylaxis; Lovenox --Full CODE STATUS Poor prognosis family aware Social issues , Medicaid application is in process Disposition; possible transfer to LTAC/SNF Very difficult to place, secondary to no payor source History Interval history: Patient seen and evaluated medical records reviewed Remains on ventilatory support via tracheostomy On weaning gas reverser records No new events reported by the nursing staff Patient is unresponsive spontaneous opening eyes Vital signs reviewed Hospitalist Physical - Constitutional Vitals: Temp Pulse Resp BP Pulse Ox 98.6 F 87 14 94/53 96 05/09/17 08:00 05/09/17 08:30 05/09/17 08:30 05/09/17 08:30 05/09/17 08:30 General appearance: Present: no acute distress, other (critically ill on vent, unresponsive) - EENT Eyes: Present: PERRL - Neck Neck: Present: supple - Respiratory Respiratory effort: normal Respiratory: bilateral: diminished, rhonchi, negative: rales, wheezing - Cardiovascular Rhythm: regular Heart Sounds: Present: S1 & S2 - Extremities Extremities: no ischemia, No edema - Abdominal General gastrointestinal: soft, non-tender, non-distended, other (PEG tube in place) - Integumentary Integumentary: Present: clear, warm - Psychiatric Psychiatric: other (unresponsive) - Neurologic Neurologic: other (unresponsive) Results - Labs CBC & Chem 7: 05/01/17 05:30 05/01/17 05:30 Labs: Laboratory Last Values WBC 7.8 K/mm3 (4.5-11.0) 05/01/17 05:30 RBC 3.49 M/mm3 (3.65-5.03) L 05/01/17 05:30 Hgb 10.3 gm/dl (11.8-15.2) L 05/01/17 05:30 Hct 31.9 % (35.5-45.6) L 05/01/17 05:30 MCV 92 fl (84-94) 05/01/17 05:30 MCH 30 pg (28-32) 05/01/17 05:30 MCHC 32 % (32-34) 05/01/17 05:30 RDW 15.1 % (13.2-15.2) 05/01/17 05:30 Plt Count 280 K/mm3 (140-440) 05/01/17 05:30 Lymph % (Auto) 17.7 % (13.4-35.0) 05/01/17 05:30 [place] % (Auto) 8.1 % (0.0-7.3) H 05/01/17 05:30 Eos % (Auto) 2.5 % (0.0-4.3) 05/01/17 05:30 Baso % (Auto) 0.4 % (0.0-1.8) 05/01/17 05:30 Lymph # 1.4 K/mm3 (1.2-5.4) 05/01/17 05:30 [place] # 0.6 K/mm3 (0.0-0.8) 05/01/17 05:30 Eos # 0.2 K/mm3 (0.0-0.4) 05/01/17 05:30 Baso # 0.0 K/mm3 (0.0-0.1) 05/01/17 05:30 Add Manual Diff Complete 03/30/17 03:50 Total Counted 100 03/30/17 03:50 Seg Neutrophils % 71.3 % (40.0-70.0) H 05/01/17 05:30 Seg Neuts % (Manual) 65.0 % (40.0-70.0) 03/30/17 03:50 Band Neutrophils % 17.0 % 03/30/17 03:50 Lymphocytes % (Manual) 7.0 % (13.4-35.0) L 03/30/17 03:50 Reactive Lymphs % (Man) 0 % 03/30/17 03:50 Monocytes % (Manual) 7.0 % (0.0-7.3) 03/30/17 03:50 Eosinophils % (Manual) 0 % (0.0-4.3) 03/30/17 03:50 Basophils % (Manual) 0 % (0.0-1.8) 03/30/17 03:50 Metamyelocytes % 4.0 % 03/30/17 03:50 Myelocytes % 0 % 03/30/17 03:50 Promyelocytes % 0 % 03/30/17 03:50 Blast Cells % 0 % 03/30/17 03:50 Nucleated RBC % Not Reportable 03/30/17 03:50 Seg Neutrophils # 5.6 K/mm3 (1.8-7.7) 05/01/17 05:30 Seg Neutrophils # Man 12.7 K/mm3 (1.8-7.7) H 03/30/17 03:50 Band Neutrophils # 3.3 K/mm3 03/30/17 03:50 Lymphocytes # (Manual) 1.4 K/mm3 (1.2-5.4) 03/30/17 03:50 Abs React Lymphs (Man) 0.0 K/mm3 03/30/17 03:50 Monocytes # (Manual) 1.4 K/mm3 (0.0-0.8) H 03/30/17 03:50 Eosinophils # (Manual) 0.0 K/mm3 (0.0-0.4) 03/30/17 03:50 Basophils # (Manual) 0.0 K/mm3 (0.0-0.1) 03/30/17 03:50 Metamyelocytes # 0.8 K/mm3 03/30/17 03:50 Myelocytes # 0.0 K/mm3 03/30/17 03:50 Promyelocytes # 0.0 K/mm3 03/30/17 03:50 Blast Cells # 0.0 K/mm3 03/30/17 03:50 WBC Morphology Not Reportable 03/30/17 03:50 Hypersegmented Neuts Not Reportable 03/30/17 03:50 Hyposegmented Neuts Not Reportable 03/30/17 03:50 Hypogranular Neuts Not Reportable 03/30/17 03:50 Smudge Cells Not Reportable 03/30/17 03:50 Toxic Granulation Not Reportable 03/30/17 03:50 Toxic Vacuolation Not Reportable 03/30/17 03:50 Dohle Bodies Not Reportable 03/30/17 03:50 Pelger-Huet Anomaly Not Reportable 03/30/17 03:50 Sherry Rods Not Reportable 03/30/17 03:50 Platelet Estimate Appears normal 03/30/17 03:50 Clumped Platelets Not Reportable 03/30/17 03:50 Plt Clumps, EDTA Not Reportable 03/30/17 03:50 Large Platelets Not Reportable 03/30/17 03:50 Giant Platelets Not Reportable 03/30/17 03:50 Platelet Satelliting Not Reportable 03/30/17 03:50 Plt Morphology Comment Not Reportable 03/30/17 03:50 RBC Morphology Not Reportable 03/30/17 03:50 Dimorphic RBCs Not Reportable 03/30/17 03:50 Polychromasia Not Reportable 03/30/17 03:50 Hypochromasia Not Reportable 03/30/17 03:50 Poikilocytosis Not Reportable 03/30/17 03:50 Anisocytosis Few 03/30/17 03:50 Microcytosis Not Reportable 03/30/17 03:50 Macrocytosis Not Reportable 03/30/17 03:50 Spherocytes Not Reportable 03/30/17 03:50 Pappenheimer Bodies Not Reportable 03/30/17 03:50 Sickle Cells Not Reportable 03/30/17 03:50 Target Cells Not Reportable 03/30/17 03:50 Tear Drop Cells Not Reportable 03/30/17 03:50 Ovalocytes Not Reportable 03/30/17 03:50 Helmet Cells Not Reportable 03/30/17 03:50 [place] Bodies Not Reportable 03/30/17 03:50 [place] Rings Not Reportable 03/30/17 03:50 Nusrat Cells Not Reportable 03/30/17 03:50 Bite Cells Not Reportable 03/30/17 03:50 Crenated Cell Not Reportable 03/30/17 03:50 Elliptocytes Not Reportable 03/30/17 03:50 Acanthocytes (Spur) Not Reportable 03/30/17 03:50 Rouleaux Not Reportable 03/30/17 03:50 Hemoglobin C Crystals Not Reportable 03/30/17 03:50 Schistocytes Not Reportable 03/30/17 03:50 Malaria parasites Not Reportable 03/30/17 03:50 Jermaine Bodies Not Reportable 03/30/17 03:50 Hem Pathologist Commnt No 03/30/17 03:50 PT 14.9 Sec. (12.2-14.9) 04/10/17 04:16 INR 1.11 (0.87-1.13) 04/10/17 04:16 APTT 27.8 Sec. (24.2-36.6) 04/10/17 04:16 Activated Clotting Time 92 (74-137) 03/29/17 17:47 POC ABG pH 7.551 (7.35-7.45) H 04/30/17 18:20 POC ABG pCO2 32.7 (35-45) L 04/30/17 18:20 POC ABG pO2 101 (80-105) 04/30/17 18:20 POC ABG HCO3 28.7 04/30/17 18:20 POC ABG Total CO2 30 04/30/17 18:20 POC ABG O2 Sat 99 04/30/17 18:20 POC ABG Base Excess 6 04/30/17 18:20 FiO2 30 % 04/30/17 18:20 Sodium 136 mmol/L (137-145) L 05/01/17 05:30 Potassium 3.9 mmol/L (3.6-5.0) 05/01/17 05:30 Chloride 97.6 mmol/L (98-107) L 05/01/17 05:30 Carbon Dioxide 25 mmol/L (22-30) 05/01/17 05:30 Anion Gap 17 mmol/L 05/01/17 05:30 BUN 16 mg/dL (9-20) 05/01/17 05:30 Creatinine 0.2 mg/dL (0.8-1.5) L 05/01/17 05:30 Estimated GFR > 60 ml/min 05/01/17 05:30 BUN/Creatinine Ratio 80 % 05/01/17 05:30 Glucose 123 mg/dL (75-100) H 05/01/17 05:30 POC Glucose 118 (70-105) H 05/09/17 05:14 Calcium 8.9 mg/dL (8.4-10.2) 05/01/17 05:30 Phosphorus 3.50 mg/dL (2.5-4.5) 04/13/17 04:45 Magnesium 1.80 mg/dL (1.7-2.3) 05/01/17 05:30 Total Bilirubin 0.60 mg/dL (0.1-1.2) 05/01/17 05:30 Direct Bilirubin < 0.2 mg/dL (0-0.2) 04/27/17 05:40 Indirect Bilirubin 0.3 mg/dL 04/25/17 04:51 AST 71 units/L (5-40) H 05/01/17 05:30 ALT 125 units/L (7-56) H 05/01/17 05:30 Alkaline Phosphatase 158 units/L (35-129) H 05/01/17 05:30 Total Creatine Kinase 1404 units/L (55-170) H 04/12/17 21:36 CK-MB (CK-2) 8.0 ng/mL (0.0-4.0) H 04/12/17 21:36 CK-MB (CK-2) Rel Index 0.5 (0-4) 04/12/17 21:36 Troponin T 0.767 ng/mL (0.00-0.029) H* 04/12/17 21:36 C-Reactive Protein 21.80 mg/dL (0.00-1.30) H 03/30/17 16:04 Total Protein 6.7 g/dL (6.3-8.2) 05/01/17 05:30 Albumin 2.6 g/dL (3.9-5) L 05/01/17 05:30 Albumin/Globulin Ratio 0.6 % 05/01/17 05:30 Triglycerides 151 mg/dL (2-149) H 04/01/17 04:29 Cholesterol 164 mg/dL (50-199) 03/29/17 19:52 LDL Cholesterol Direct 81 mg/dL (50-130) 03/29/17 19:52 HDL Cholesterol 44 mg/dL (40-59) 03/29/17 19:52 Cholesterol/HDL Ratio 3.72 % 03/29/17 19:52 Urine Color [place] (Yellow) 04/21/17 22:00 Urine Turbidity Clear (Clear) 04/21/17 22:00 Urine pH 5.0 (5.0-7.0) 04/21/17 22:00 Ur Specific [place] 1.029 (1.003-1.030) 04/21/17 22:00 Urine Protein 30 mg/dl mg/dL (Negative) 04/21/17 22:00 Urine Glucose (UA) Neg mg/dL (Negative) 04/21/17 22:00 Urine Ketones Neg mg/dL (Negative) 04/21/17 22:00 Urine Blood Mod (Negative) 04/21/17 22:00 Urine Nitrite Neg (Negative) 04/21/17 22:00 Urine Bilirubin Neg (Negative) 04/21/17 22:00 Urine Urobilinogen 4.0 mg/dL (<2.0) 04/21/17 22:00 Ur Leukocyte Esterase Neg (Negative) 04/21/17 22:00 Urine WBC (Auto) 10.0 /HPF (0.0-6.0) H 04/21/17 22:00 Urine RBC (Auto) 44.0 /HPF (0.0-6.0) 04/21/17 22:00 U Epithel Cells (Auto) < 1.0 /HPF (0-13.0) 04/21/17 22:00 Amorphous Crystals 1+ 03/30/17 09:45 Urine Mucus 3+ /HPF 04/21/17 22:00 Urine Opiates Screen Presumptive negative 03/30/17 09:45 Urine Methadone Screen Presumptive negative 03/30/17 09:45 Ur Barbiturates Screen Presumptive negative 03/30/17 09:45 Ur Phencyclidine Scrn Presumptive negative 03/30/17 09:45 Ur Amphetamines Screen Presumptive positive 03/30/17 09:45 U Benzodiazepines Scrn Presumptive positive 03/30/17 09:45 Urine Cocaine Screen Presumptive negative 03/30/17 09:45 U Marijuana (THC) Screen Presumptive negative 03/30/17 09:45 Drugs of Abuse Note Disclamer 03/30/17 09:45 Miscellaneous Test Flexitest 1 H 04/25/17 07:07 Blood Type O POSITIVE 03/29/17 11:35 Antibody Screen Negative 03/29/17 11:35
--- NOTE | 2017-05-09 09:21 | Progress Note ---
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 1. Continue PSV trials as tolerated. Tolerated for 24 hours yesterday. Remains on it this am. Continue current settings. If continues to tolerate, then will attempt T-piece. 2. Once tolerates T-piece for 24 hours, can consider transfer to floor 3. Continue vent support and management 4. Continue all other cardiac meds 5. Overall prognosis still remains poor given amount of downtime during arrest. 6. Still need to have family meeting with neurology present to explain current findings. Patient should at least be a DNR if family wants to continue aggressive care. Given his current cardiac issues and mental state, coding him would not improve any outcomes. CCT 31 minutes. Subjective Date of service: 05/09/17 Principal diagnosis: coma,ARV,s/p arrest Interval history: no acute events. Appreciate Neurology eval and note from yesterday. clinical status is unchanged. No family currently at bedside. Tolerated PSV all night. Objective Vital Signs - 12hr 05/08/17 05/08/17 05/08/17 21:22 21:30 22:00 Temperature 98.4 F Pulse Rate 88 89 Pulse Rate [ From Monitor] Respiratory 23 20 Rate Blood Pressure 101/56 96/54 O2 Sat by Pulse 98 97 Oximetry O2 Sat by Pulse Oximetry [ Assessment] 05/08/17 05/08/17 05/08/17 22:30 22:39 23:00 Temperature Pulse Rate 84 84 80 Pulse Rate [ From Monitor] Respiratory 20 21 Rate Blood Pressure 88/51 88/51 94/52 O2 Sat by Pulse 96 96 Oximetry O2 Sat by Pulse Oximetry [ Assessment] 05/08/17 05/09/17 05/09/17 23:30 00:00 00:01 Temperature 98.8 F Pulse Rate 88 93 H 92 H Pulse Rate [ From Monitor] Respiratory 25 H 20 15 Rate Blood Pressure 95/59 102/60 102/60 O2 Sat by Pulse 98 98 98 Oximetry O2 Sat by Pulse 98 Oximetry [ Assessment] 05/09/17 05/09/17 05/09/17 00:30 00:34 01:00 Temperature 98.9 F Pulse Rate 88 88 Pulse Rate [ From Monitor] Respiratory 12 10 L Rate Blood Pressure 92/56 92/56 O2 Sat by Pulse 98 95 Oximetry O2 Sat by Pulse Oximetry [ Assessment] 05/09/17 05/09/17 05/09/17 01:30 02:00 02:30 Temperature Pulse Rate 88 88 86 Pulse Rate [ From Monitor] Respiratory 20 22 18 Rate Blood Pressure 95/48 95/53 96/57 O2 Sat by Pulse 96 96 97 Oximetry O2 Sat by Pulse Oximetry [ Assessment] 05/09/17 05/09/17 05/09/17 03:00 03:30 04:00 Temperature Pulse Rate 92 H 92 H 87 Pulse Rate [ From Monitor] Respiratory 16 24 15 Rate Blood Pressure 106/61 100/61 89/48 O2 Sat by Pulse 97 98 98 Oximetry O2 Sat by Pulse Oximetry [ Assessment] 05/09/17 05/09/17 05/09/17 04:10 04:30 05:00 Temperature 99.0 F Pulse Rate 91 H 88 Pulse Rate [ From Monitor] Respiratory 24 17 Rate Blood Pressure 95/58 94/57 O2 Sat by Pulse 97 97 Oximetry O2 Sat by Pulse Oximetry [ Assessment] 05/09/17 05/09/17 05/09/17 05:30 06:00 06:30 Temperature Pulse Rate 91 H 88 87 Pulse Rate [ From Monitor] Respiratory 23 23 21 Rate Blood Pressure 94/57 99/59 89/48 O2 Sat by Pulse 96 96 96 Oximetry O2 Sat by Pulse Oximetry [ Assessment] 05/09/17 05/09/17 05/09/17 07:00 07:30 08:00 Temperature 98.6 F Pulse Rate 92 H 88 85 Pulse Rate [ From Monitor] Respiratory 17 21 20 Rate Blood Pressure 92/51 84/45 89/45 O2 Sat by Pulse 98 96 96 Oximetry O2 Sat by Pulse Oximetry [ Assessment] 05/09/17 05/09/17 05/09/17 08:25 08:30 09:11 Temperature Pulse Rate 87 82 Pulse Rate [ 82 From Monitor] Respiratory 20 14 12 Rate Blood Pressure 94/53 83/51 O2 Sat by Pulse 98 96 98 Oximetry O2 Sat by Pulse Oximetry [ Assessment] Constitutional: no acute distress, other (awake on vent) Eyes: non-icteric ENT: oropharynx moist Neck: supple, no JVD, other (tracheotomy ) Effort: normal Ascultation: Bilateral: clear, diminished breath sounds, other (coarse BS bilaterally) Percussion: Bilateral: not dull Cardiovascular: regular rate and rhythm Gastrointestinal: normoactive bowel sounds, soft, non-tender, non-distended Integumentary: normal Extremities: no cyanosis, no edema, pink and warm Neurologic: unable to assess Psychiatric: other (eyes open spontaneously but does not follow any voice commands, otherwise nonresponsive except for pain) CBC and BMP: 05/01/17 05:30 05/01/17 05:30 ABG, PT/INR, D-dimer: ABG POC ABG pH 7.551 (7.35-7.45) H 04/30/17 18:20 POC ABG pCO2 32.7 (35-45) L 04/30/17 18:20 POC ABG pO2 101 (80-105) 04/30/17 18:20 POC ABG HCO3 28.7 04/30/17 18:20 POC ABG Total CO2 30 04/30/17 18:20 POC ABG O2 Sat 99 04/30/17 18:20 PT/INR, D-dimer PT 14.9 Sec. (12.2-14.9) 04/10/17 04:16 INR 1.11 (0.87-1.13) 04/10/17 04:16 Abnormal lab findings: Abnormal Labs 03/29/17 03/29/17 03/29/17 11:35 11:35 11:40 WBC RBC Hgb Hct MCV 98 H MCH 33 H Plt Count Lymph % (Auto) [place] % (Auto) Eos % (Auto) Baso % (Auto) Lymph # Baso # Seg Neutrophils % Lymphocytes % (Manual) Monocytes % (Manual) 9.0 H Nucleated RBC % 1.0 H Seg Neutrophils # Seg Neutrophils # Man Monocytes # (Manual) 0.9 H PT 15.8 H INR 1.20 H Activated Clotting Time POC ABG pH POC ABG pCO2 POC ABG pO2 Sodium Potassium 2.7 L* Chloride 95.3 L Carbon Dioxide 17 L BUN Creatinine Glucose 435 H POC Glucose Calcium Magnesium Direct Bilirubin AST ALT Alkaline Phosphatase Total Creatine Kinase CK-MB (CK-2) CK-MB (CK-2) Rel Index Troponin T C-Reactive Protein Total Protein 6.1 L Albumin 3.5 L Triglycerides Ur Specific [place] Urine WBC (Auto) Miscellaneous Test 03/29/17 03/29/17 03/29/17 12:34 13:10 13:25 WBC RBC Hgb Hct MCV MCH Plt Count Lymph % (Auto) [place] % (Auto) Eos % (Auto) Baso % (Auto) Lymph # Baso # Seg Neutrophils % Lymphocytes % (Manual) Monocytes % (Manual) Nucleated RBC % Seg Neutrophils # Seg Neutrophils # Man Monocytes # (Manual) PT INR Activated Clotting Time 142 H 169 H 175 H POC ABG pH POC ABG pCO2 POC ABG pO2 Sodium Potassium Chloride Carbon Dioxide BUN Creatinine Glucose POC Glucose Calcium Magnesium Direct Bilirubin AST ALT Alkaline Phosphatase Total Creatine Kinase CK-MB (CK-2) CK-MB (CK-2) Rel Index Troponin T C-Reactive Protein Total Protein Albumin Triglycerides Ur Specific [place] Urine WBC (Auto) Miscellaneous Test 03/29/17 03/29/17 03/29/17 14:50 15:18 19:52 WBC RBC Hgb Hct MCV MCH Plt Count Lymph % (Auto) [place] % (Auto) Eos % (Auto) Baso % (Auto) Lymph # Baso # Seg Neutrophils % Lymphocytes % (Manual) Monocytes % (Manual) Nucleated RBC % Seg Neutrophils # Seg Neutrophils # Man Monocytes # (Manual) PT INR Activated Clotting Time 175 H POC ABG pH 7.293 L POC ABG pCO2 POC ABG pO2 602 H Sodium Potassium Chloride Carbon Dioxide BUN Creatinine Glucose POC Glucose Calcium Magnesium Direct Bilirubin AST ALT Alkaline Phosphatase Total Creatine Kinase 7263 H CK-MB (CK-2) > 300.0 H CK-MB (CK-2) Rel Index 4.1 H Troponin T 8.080 H* D C-Reactive Protein Total Protein Albumin Triglycerides 195 H Ur Specific [place] Urine WBC (Auto) Miscellaneous Test 03/30/17 03/30/17 03/30/17 03:50 03:50 06:19 WBC 19.5 H RBC Hgb Hct MCV MCH Plt Count Lymph % (Auto) [place] % (Auto) Eos % (Auto) Baso % (Auto) Lymph # Baso # Seg Neutrophils % Lymphocytes % (Manual) 7.0 L Monocytes % (Manual) Nucleated RBC % Seg Neutrophils # Seg Neutrophils # Man 12.7 H Monocytes # (Manual) 1.4 H PT INR Activated Clotting Time POC ABG pH POC ABG pCO2 28.2 L POC ABG pO2 108 H Sodium Potassium Chloride 108.9 H Carbon Dioxide 15 L BUN 25 H Creatinine Glucose 158 H POC Glucose Calcium 8.1 L Magnesium Direct Bilirubin AST ALT Alkaline Phosphatase Total Creatine Kinase 7963 H CK-MB (CK-2) > 300.0 H CK-MB (CK-2) Rel Index Troponin T 6.850 H* C-Reactive Protein Total Protein Albumin Triglycerides Ur Specific [place] Urine WBC (Auto) Miscellaneous Test 03/30/17 03/30/17 03/31/17 09:45 16:04 02:19 WBC RBC Hgb Hct MCV MCH Plt Count Lymph % (Auto) [place] % (Auto) Eos % (Auto) Baso % (Auto) Lymph # Baso # Seg Neutrophils % Lymphocytes % (Manual) Monocytes % (Manual) Nucleated RBC % Seg Neutrophils # Seg Neutrophils # Man Monocytes # (Manual) PT INR Activated Clotting Time POC ABG pH POC ABG pCO2 POC ABG pO2 Sodium Potassium Chloride Carbon Dioxide BUN Creatinine Glucose POC Glucose 137 H Calcium Magnesium Direct Bilirubin AST ALT Alkaline Phosphatase Total Creatine Kinase CK-MB (CK-2) CK-MB (CK-2) Rel Index Troponin T C-Reactive Protein 21.80 H Total Protein Albumin Triglycerides Ur Specific [place] 1.031 H Urine WBC (Auto) Miscellaneous Test 03/31/17 03/31/17 03/31/17 03:57 06:54 09:22 WBC RBC Hgb Hct MCV MCH Plt Count Lymph % (Auto) [place] % (Auto) Eos % (Auto) Baso % (Auto) Lymph # Baso # Seg Neutrophils % Lymphocytes % (Manual) Monocytes % (Manual) Nucleated RBC % Seg Neutrophils # Seg Neutrophils # Man Monocytes # (Manual) PT INR Activated Clotting Time POC ABG pH 7.475 H POC ABG pCO2 25.4 L POC ABG pO2 62 L Sodium Potassium Chloride Carbon Dioxide 19 L BUN 22 H Creatinine 0.6 L Glucose 148 H POC Glucose 143 H Calcium 8.3 L Magnesium Direct Bilirubin AST ALT Alkaline Phosphatase Total Creatine Kinase CK-MB (CK-2) CK-MB (CK-2) Rel Index Troponin T C-Reactive Protein Total Protein Albumin Triglycerides Ur Specific [place] Urine WBC (Auto) Miscellaneous Test 03/31/17 03/31/17 03/31/17 11:40 17:47 23:38 WBC RBC Hgb Hct MCV MCH Plt Count Lymph % (Auto) [place] % (Auto) Eos % (Auto) Baso % (Auto) Lymph # Baso # Seg Neutrophils % Lymphocytes % (Manual) Monocytes % (Manual) Nucleated RBC % Seg Neutrophils # Seg Neutrophils # Man Monocytes # (Manual) PT INR Activated Clotting Time POC ABG pH POC ABG pCO2 POC ABG pO2 Sodium Potassium Chloride Carbon Dioxide BUN Creatinine Glucose POC Glucose 127 H 137 H 148 H Calcium Magnesium Direct Bilirubin AST ALT Alkaline Phosphatase Total Creatine Kinase CK-MB (CK-2) CK-MB (CK-2) Rel Index Troponin T C-Reactive Protein Total Protein Albumin Triglycerides Ur Specific [place] Urine WBC (Auto) Miscellaneous Test 04/01/17 04/01/17 04/01/17 04:29 05:01 11:54 WBC RBC Hgb Hct MCV MCH Plt Count Lymph % (Auto) [place] % (Auto) Eos % (Auto) Baso % (Auto) Lymph # Baso # Seg Neutrophils % Lymphocytes % (Manual) Monocytes % (Manual) Nucleated RBC % Seg Neutrophils # Seg Neutrophils # Man Monocytes # (Manual) PT INR Activated Clotting Time POC ABG pH 7.513 H POC ABG pCO2 22.1 L POC ABG pO2 64 L Sodium Potassium Chloride Carbon Dioxide BUN Creatinine Glucose POC Glucose 121 H Calcium Magnesium Direct Bilirubin AST ALT Alkaline Phosphatase Total Creatine Kinase CK-MB (CK-2) CK-MB (CK-2) Rel Index Troponin T C-Reactive Protein Total Protein Albumin Triglycerides 151 H Ur Specific [place] Urine WBC (Auto) Miscellaneous Test 04/01/17 04/02/17 04/02/17 18:17 00:11 04:52 WBC RBC Hgb Hct MCV MCH Plt Count Lymph % (Auto) [place] % (Auto) Eos % (Auto) Baso % (Auto) Lymph # Baso # Seg Neutrophils % Lymphocytes % (Manual) Monocytes % (Manual) Nucleated RBC % Seg Neutrophils # Seg Neutrophils # Man Monocytes # (Manual) PT INR Activated Clotting Time POC ABG pH 7.524 H POC ABG pCO2 25.5 L POC ABG pO2 66 L Sodium Potassium Chloride Carbon Dioxide BUN Creatinine Glucose POC Glucose 117 H 122 H Calcium Magnesium Direct Bilirubin AST ALT Alkaline Phosphatase Total Creatine Kinase CK-MB (CK-2) CK-MB (CK-2) Rel Index Troponin T C-Reactive Protein Total Protein Albumin Triglycerides Ur Specific [place] Urine WBC (Auto) Miscellaneous Test 04/02/17 04/02/17 04/02/17 05:18 10:41 12:19 WBC RBC Hgb Hct MCV MCH Plt Count Lymph % (Auto) [place] % (Auto) Eos % (Auto) Baso % (Auto) Lymph # Baso # Seg Neutrophils % Lymphocytes % (Manual) Monocytes % (Manual) Nucleated RBC % Seg Neutrophils # Seg Neutrophils # Man Monocytes # (Manual) PT INR Activated Clotting Time POC ABG pH 7.534 H POC ABG pCO2 27.4 L POC ABG pO2 Sodium Potassium Chloride Carbon Dioxide BUN Creatinine Glucose POC Glucose 132 H 129 H Calcium Magnesium Direct Bilirubin AST ALT Alkaline Phosphatase Total Creatine Kinase CK-MB (CK-2) CK-MB (CK-2) Rel Index Troponin T C-Reactive Protein Total Protein Albumin Triglycerides Ur Specific [place] Urine WBC (Auto) Miscellaneous Test 04/02/17 04/03/17 04/03/17 18:05 00:08 05:09 WBC RBC Hgb Hct MCV MCH Plt Count Lymph % (Auto) [place] % (Auto) Eos % (Auto) Baso % (Auto) Lymph # Baso # Seg Neutrophils % Lymphocytes % (Manual) Monocytes % (Manual) Nucleated RBC % Seg Neutrophils # Seg Neutrophils # Man Monocytes # (Manual) PT INR Activated Clotting Time POC ABG pH 7.455 H POC ABG pCO2 33.2 L POC ABG pO2 120 H Sodium Potassium Chloride Carbon Dioxide BUN Creatinine Glucose POC Glucose 136 H 128 H Calcium Magnesium Direct Bilirubin AST ALT Alkaline Phosphatase Total Creatine Kinase CK-MB (CK-2) CK-MB (CK-2) Rel Index Troponin T C-Reactive Protein Total Protein Albumin Triglycerides Ur Specific [place] Urine WBC (Auto) Miscellaneous Test 04/03/17 04/03/17 04/03/17 06:32 11:54 12:16 WBC 11.9 H RBC Hgb Hct MCV MCH Plt Count 125 L Lymph % (Auto) 4.8 L [place] % (Auto) Eos % (Auto) Baso % (Auto) Lymph # 0.6 L Baso # Seg Neutrophils % 86.7 H Lymphocytes % (Manual) Monocytes % (Manual) Nucleated RBC % Seg Neutrophils # 10.3 H Seg Neutrophils # Man Monocytes # (Manual) PT INR Activated Clotting Time POC ABG pH POC ABG pCO2 POC ABG pO2 Sodium Potassium Chloride Carbon Dioxide BUN Creatinine Glucose POC Glucose 138 H 143 H Calcium Magnesium Direct Bilirubin AST ALT Alkaline Phosphatase Total Creatine Kinase CK-MB (CK-2) CK-MB (CK-2) Rel Index Troponin T C-Reactive Protein Total Protein Albumin Triglycerides Ur Specific [place] Urine WBC (Auto) Miscellaneous Test 04/03/17 04/03/17 04/04/17 17:33 23:59 04:34 WBC RBC Hgb Hct MCV MCH Plt Count Lymph % (Auto) [place] % (Auto) Eos % (Auto) Baso % (Auto) Lymph # Baso # Seg Neutrophils % Lymphocytes % (Manual) Monocytes % (Manual) Nucleated RBC % Seg Neutrophils # Seg Neutrophils # Man Monocytes # (Manual) PT INR Activated Clotting Time POC ABG pH 7.457 H POC ABG pCO2 29.8 L POC ABG pO2 76 L Sodium Potassium Chloride Carbon Dioxide BUN Creatinine Glucose POC Glucose 130 H 155 H Calcium Magnesium Direct Bilirubin AST ALT Alkaline Phosphatase Total Creatine Kinase CK-MB (CK-2) CK-MB (CK-2) Rel Index Troponin T C-Reactive Protein Total Protein Albumin Triglycerides Ur Specific [place] Urine WBC (Auto) Miscellaneous Test 04/04/17 04/04/17 04/04/17 05:27 12:22 18:18 WBC RBC Hgb Hct MCV MCH Plt Count Lymph % (Auto) [place] % (Auto) Eos % (Auto) Baso % (Auto) Lymph # Baso # Seg Neutrophils % Lymphocytes % (Manual) Monocytes % (Manual) Nucleated RBC % Seg Neutrophils # Seg Neutrophils # Man Monocytes # (Manual) PT INR Activated Clotting Time POC ABG pH POC ABG pCO2 POC ABG pO2 Sodium Potassium Chloride Carbon Dioxide BUN Creatinine Glucose POC Glucose 164 H 146 H 130 H Calcium Magnesium Direct Bilirubin AST ALT Alkaline Phosphatase Total Creatine Kinase CK-MB (CK-2) CK-MB (CK-2) Rel Index Troponin T C-Reactive Protein Total Protein Albumin Triglycerides Ur Specific [place] Urine WBC (Auto) Miscellaneous Test 04/05/17 04/05/17 04/05/17 04:43 05:28 11:36 WBC RBC Hgb Hct MCV MCH Plt Count Lymph % (Auto) [place] % (Auto) Eos % (Auto) Baso % (Auto) Lymph # Baso # Seg Neutrophils % Lymphocytes % (Manual) Monocytes % (Manual) Nucleated RBC % Seg Neutrophils # Seg Neutrophils # Man Monocytes # (Manual) PT INR Activated Clotting Time POC ABG pH 7.479 H POC ABG pCO2 33.5 L POC ABG pO2 76 L Sodium Potassium Chloride Carbon Dioxide BUN Creatinine Glucose POC Glucose 145 H 136 H Calcium Magnesium Direct Bilirubin AST ALT Alkaline Phosphatase Total Creatine Kinase CK-MB (CK-2) CK-MB (CK-2) Rel Index Troponin T C-Reactive Protein Total Protein Albumin Triglycerides Ur Specific [place] Urine WBC (Auto) Miscellaneous Test 04/05/17 04/06/17 04/06/17 17:58 00:16 05:26 WBC RBC Hgb Hct MCV MCH Plt Count Lymph % (Auto) [place] % (Auto) Eos % (Auto) Baso % (Auto) Lymph # Baso # Seg Neutrophils % Lymphocytes % (Manual) Monocytes % (Manual) Nucleated RBC % Seg Neutrophils # Seg Neutrophils # Man Monocytes # (Manual) PT INR Activated Clotting Time POC ABG pH POC ABG pCO2 POC ABG pO2 Sodium Potassium Chloride Carbon Dioxide BUN Creatinine Glucose POC Glucose 130 H 159 H 146 H Calcium Magnesium Direct Bilirubin AST ALT Alkaline Phosphatase Total Creatine Kinase CK-MB (CK-2) CK-MB (CK-2) Rel Index Troponin T C-Reactive Protein Total Protein Albumin Triglycerides Ur Specific [place] Urine WBC (Auto) Miscellaneous Test 04/06/17 04/06/17 04/07/17 13:11 16:54 11:45 WBC RBC Hgb Hct MCV MCH Plt Count Lymph % (Auto) [place] % (Auto) Eos % (Auto) Baso % (Auto) Lymph # Baso # Seg Neutrophils % Lymphocytes % (Manual) Monocytes % (Manual) Nucleated RBC % Seg Neutrophils # Seg Neutrophils # Man Monocytes # (Manual) PT INR Activated Clotting Time POC ABG pH 7.517 H POC ABG pCO2 32.1 L POC ABG pO2 Sodium Potassium Chloride Carbon Dioxide BUN Creatinine Glucose POC Glucose 132 H 123 H Calcium Magnesium Direct Bilirubin AST ALT Alkaline Phosphatase Total Creatine Kinase CK-MB (CK-2) CK-MB (CK-2) Rel Index Troponin T C-Reactive Protein Total Protein Albumin Triglycerides Ur Specific [place] Urine WBC (Auto) Miscellaneous Test 04/07/17 04/07/17 04/07/17 12:51 17:40 23:55 WBC RBC Hgb Hct MCV MCH Plt Count Lymph % (Auto) [place] % (Auto) Eos % (Auto) Baso % (Auto) Lymph # Baso # Seg Neutrophils % Lymphocytes % (Manual) Monocytes % (Manual) Nucleated RBC % Seg Neutrophils # Seg Neutrophils # Man Monocytes # (Manual) PT INR Activated Clotting Time POC ABG pH POC ABG pCO2 POC ABG pO2 Sodium Potassium Chloride Carbon Dioxide BUN Creatinine Glucose POC Glucose 138 H 154 H 143 H Calcium Magnesium Direct Bilirubin AST ALT Alkaline Phosphatase Total Creatine Kinase CK-MB (CK-2) CK-MB (CK-2) Rel Index Troponin T C-Reactive Protein Total Protein Albumin Triglycerides Ur Specific [place] Urine WBC (Auto) Miscellaneous Test 04/08/17 04/08/17 04/08/17 05:27 11:14 17:44 WBC RBC Hgb Hct MCV MCH Plt Count Lymph % (Auto) [place] % (Auto) Eos % (Auto) Baso % (Auto) Lymph # Baso # Seg Neutrophils % Lymphocytes % (Manual) Monocytes % (Manual) Nucleated RBC % Seg Neutrophils # Seg Neutrophils # Man Monocytes # (Manual) PT INR Activated Clotting Time POC ABG pH POC ABG pCO2 POC ABG pO2 Sodium Potassium Chloride Carbon Dioxide BUN Creatinine Glucose POC Glucose 142 H 153 H 129 H Calcium Magnesium Direct Bilirubin AST ALT Alkaline Phosphatase Total Creatine Kinase CK-MB (CK-2) CK-MB (CK-2) Rel Index Troponin T C-Reactive Protein Total Protein Albumin Triglycerides Ur Specific [place] Urine WBC (Auto) Miscellaneous Test 04/09/17 04/09/17 04/09/17 08:20 11:21 17:37 WBC RBC Hgb Hct MCV MCH Plt Count Lymph % (Auto) [place] % (Auto) Eos % (Auto) Baso % (Auto) Lymph # Baso # Seg Neutrophils % Lymphocytes % (Manual) Monocytes % (Manual) Nucleated RBC % Seg Neutrophils # Seg Neutrophils # Man Monocytes # (Manual) PT INR Activated Clotting Time POC ABG pH POC ABG pCO2 POC ABG pO2 Sodium 147 H Potassium Chloride 108.8 H Carbon Dioxide BUN 39 H Creatinine 0.5 L Glucose 138 H POC Glucose 152 H 109 H Calcium Magnesium Direct Bilirubin AST ALT Alkaline Phosphatase Total Creatine Kinase CK-MB (CK-2) CK-MB (CK-2) Rel Index Troponin T C-Reactive Protein Total Protein Albumin Triglycerides Ur Specific [place] Urine WBC (Auto) Miscellaneous Test 04/10/17 04/10/17 04/10/17 00:13 04:16 04:16 WBC RBC Hgb 11.5 L Hct MCV 96 H MCH Plt Count 103 L Lymph % (Auto) 11.1 L [place] % (Auto) Eos % (Auto) Baso % (Auto) Lymph # Baso # Seg Neutrophils % 81.5 H Lymphocytes % (Manual) Monocytes % (Manual) Nucleated RBC % Seg Neutrophils # 8.8 H Seg Neutrophils # Man Monocytes # (Manual) PT INR Activated Clotting Time POC ABG pH POC ABG pCO2 POC ABG pO2 Sodium 148 H Potassium Chloride 109.0 H Carbon Dioxide BUN 36 H Creatinine 0.5 L Glucose 131 H POC Glucose 127 H Calcium 8.1 L Magnesium 2.40 H Direct Bilirubin AST 206 H ALT 228 H Alkaline Phosphatase 178 H Total Creatine Kinase CK-MB (CK-2) CK-MB (CK-2) Rel Index Troponin T C-Reactive Protein Total Protein Albumin 2.8 L Triglycerides Ur Specific [place] Urine WBC (Auto) Miscellaneous Test 04/10/17 04/10/17 04/10/17 06:01 11:57 18:27 WBC RBC Hgb Hct MCV MCH Plt Count Lymph % (Auto) [place] % (Auto) Eos % (Auto) Baso % (Auto) Lymph # Baso # Seg Neutrophils % Lymphocytes % (Manual) Monocytes % (Manual) Nucleated RBC % Seg Neutrophils # Seg Neutrophils # Man Monocytes # (Manual) PT INR Activated Clotting Time POC ABG pH POC ABG pCO2 POC ABG pO2 Sodium Potassium Chloride Carbon Dioxide BUN Creatinine Glucose POC Glucose 108 H 154 H 130 H Calcium Magnesium Direct Bilirubin AST ALT Alkaline Phosphatase Total Creatine Kinase CK-MB (CK-2) CK-MB (CK-2) Rel Index Troponin T C-Reactive Protein Total Protein Albumin Triglycerides Ur Specific [place] Urine WBC (Auto) Miscellaneous Test 04/11/17 04/11/17 04/12/17 12:25 17:10 00:22 WBC RBC Hgb Hct MCV MCH Plt Count Lymph % (Auto) [place] % (Auto) Eos % (Auto) Baso % (Auto) Lymph # Baso # Seg Neutrophils % Lymphocytes % (Manual) Monocytes % (Manual) Nucleated RBC % Seg Neutrophils # Seg Neutrophils # Man Monocytes # (Manual) PT INR Activated Clotting Time POC ABG pH POC ABG pCO2 POC ABG pO2 Sodium Potassium Chloride Carbon Dioxide BUN Creatinine Glucose POC Glucose 107 H 129 H 128 H Calcium Magnesium Direct Bilirubin AST ALT Alkaline Phosphatase Total Creatine Kinase CK-MB (CK-2) CK-MB (CK-2) Rel Index Troponin T C-Reactive Protein Total Protein Albumin Triglycerides Ur Specific [place] Urine WBC (Auto) Miscellaneous Test 04/12/17 04/12/17 04/12/17 05:00 11:57 17:47 WBC RBC Hgb Hct MCV MCH Plt Count Lymph % (Auto) [place] % (Auto) Eos % (Auto) Baso % (Auto) Lymph # Baso # Seg Neutrophils % Lymphocytes % (Manual) Monocytes % (Manual) Nucleated RBC % Seg Neutrophils # Seg Neutrophils # Man Monocytes # (Manual) PT INR Activated Clotting Time POC ABG pH POC ABG pCO2 POC ABG pO2 Sodium Potassium Chloride Carbon Dioxide BUN Creatinine Glucose POC Glucose 140 H 142 H Calcium Magnesium Direct Bilirubin AST 158 H ALT 184 H Alkaline Phosphatase 170 H Total Creatine Kinase CK-MB (CK-2) CK-MB (CK-2) Rel Index Troponin T C-Reactive Protein Total Protein Albumin 2.8 L Triglycerides Ur Specific [place] Urine WBC (Auto) Miscellaneous Test 04/12/17 04/12/17 04/13/17 21:36 21:36 01:37 WBC RBC Hgb Hct MCV MCH Plt Count Lymph % (Auto) [place] % (Auto) Eos % (Auto) Baso % (Auto) Lymph # Baso # Seg Neutrophils % Lymphocytes % (Manual) Monocytes % (Manual) Nucleated RBC % Seg Neutrophils # Seg Neutrophils # Man Monocytes # (Manual) PT INR Activated Clotting Time POC ABG pH POC ABG pCO2 POC ABG pO2 Sodium Potassium Chloride Carbon Dioxide BUN Creatinine Glucose POC Glucose 126 H Calcium Magnesium Direct Bilirubin AST ALT Alkaline Phosphatase Total Creatine Kinase 1404 H CK-MB (CK-2) 8.0 H CK-MB (CK-2) Rel Index Troponin T 0.767 H* C-Reactive Protein Total Protein Albumin Triglycerides Ur Specific [place] Urine WBC (Auto) Miscellaneous Test 04/13/17 04/13/17 04/13/17 04:45 04:52 12:17 WBC RBC Hgb Hct MCV MCH Plt Count Lymph % (Auto) [place] % (Auto) Eos % (Auto) Baso % (Auto) Lymph # Baso # Seg Neutrophils % Lymphocytes % (Manual) Monocytes % (Manual) Nucleated RBC % Seg Neutrophils # Seg Neutrophils # Man Monocytes # (Manual) PT INR Activated Clotting Time POC ABG pH POC ABG pCO2 POC ABG pO2 Sodium 148 H Potassium Chloride 112.8 H Carbon Dioxide BUN 33 H Creatinine 0.4 L Glucose 121 H POC Glucose 126 H 149 H Calcium Magnesium Direct Bilirubin AST 160 H ALT 189 H Alkaline Phosphatase 166 H Total Creatine Kinase CK-MB (CK-2) CK-MB (CK-2) Rel Index Troponin T C-Reactive Protein Total Protein Albumin 2.6 L Triglycerides Ur Specific [place] Urine WBC (Auto) Miscellaneous Test 04/13/17 04/14/17 04/14/17 17:45 00:20 00:45 WBC RBC Hgb Hct MCV MCH Plt Count Lymph % (Auto) [place] % (Auto) Eos % (Auto) Baso % (Auto) Lymph # Baso # Seg Neutrophils % Lymphocytes % (Manual) Monocytes % (Manual) Nucleated RBC % Seg Neutrophils # Seg Neutrophils # Man Monocytes # (Manual) PT INR Activated Clotting Time POC ABG pH POC ABG pCO2 POC ABG pO2 Sodium Potassium Chloride Carbon Dioxide BUN Creatinine Glucose POC Glucose 130 H 144 H 144 H Calcium Magnesium Direct Bilirubin AST ALT Alkaline Phosphatase Total Creatine Kinase CK-MB (CK-2) CK-MB (CK-2) Rel Index Troponin T C-Reactive Protein Total Protein Albumin Triglycerides Ur Specific [place] Urine WBC (Auto) Miscellaneous Test 04/14/17 04/14/17 04/14/17 05:40 11:06 11:31 WBC RBC Hgb Hct MCV MCH Plt Count Lymph % (Auto) [place] % (Auto) Eos % (Auto) Baso % (Auto) Lymph # Baso # Seg Neutrophils % Lymphocytes % (Manual) Monocytes % (Manual) Nucleated RBC % Seg Neutrophils # Seg Neutrophils # Man Monocytes # (Manual) PT INR Activated Clotting Time POC ABG pH POC ABG pCO2 POC ABG pO2 Sodium Potassium Chloride Carbon Dioxide BUN Creatinine Glucose POC Glucose 139 H 123 H Calcium Magnesium Direct Bilirubin AST ALT Alkaline Phosphatase Total Creatine Kinase CK-MB (CK-2) CK-MB (CK-2) Rel Index Troponin T C-Reactive Protein Total Protein Albumin Triglycerides Ur Specific [place] 1.033 H Urine WBC (Auto) > 182.0 H Miscellaneous Test 04/14/17 04/14/17 04/15/17 18:00 23:52 05:15 WBC 12.5 H RBC 3.38 L Hgb 10.6 L Hct 32.7 L MCV 97 H MCH Plt Count 107 L Lymph % (Auto) 8.7 L [place] % (Auto) Eos % (Auto) Baso % (Auto) Lymph # 1.1 L Baso # Seg Neutrophils % 86.1 H Lymphocytes % (Manual) Monocytes % (Manual) Nucleated RBC % Seg Neutrophils # 10.7 H Seg Neutrophils # Man Monocytes # (Manual) PT INR Activated Clotting Time POC ABG pH POC ABG pCO2 POC ABG pO2 Sodium Potassium Chloride Carbon Dioxide BUN Creatinine Glucose POC Glucose 133 H 133 H Calcium Magnesium Direct Bilirubin AST ALT Alkaline Phosphatase Total Creatine Kinase CK-MB (CK-2) CK-MB (CK-2) Rel Index Troponin T C-Reactive Protein Total Protein Albumin Triglycerides Ur Specific [place] Urine WBC (Auto) Miscellaneous Test 04/15/17 04/15/17 04/15/17 05:15 05:25 11:50 WBC RBC Hgb Hct MCV MCH Plt Count Lymph % (Auto) [place] % (Auto) Eos % (Auto) Baso % (Auto) Lymph # Baso # Seg Neutrophils % Lymphocytes % (Manual) Monocytes % (Manual) Nucleated RBC % Seg Neutrophils # Seg Neutrophils # Man Monocytes # (Manual) PT INR Activated Clotting Time POC ABG pH POC ABG pCO2 POC ABG pO2 Sodium 149 H Potassium 3.5 L Chloride 114.1 H Carbon Dioxide 21 L BUN 29 H Creatinine 0.4 L Glucose 128 H POC Glucose 133 H 107 H Calcium 8.3 L Magnesium Direct Bilirubin 0.4 H AST 149 H ALT 182 H Alkaline Phosphatase 143 H Total Creatine Kinase CK-MB (CK-2) CK-MB (CK-2) Rel Index Troponin T C-Reactive Protein Total Protein Albumin 2.5 L Triglycerides Ur Specific [place] Urine WBC (Auto) Miscellaneous Test 04/15/17 04/16/17 04/16/17 16:55 00:02 03:17 WBC RBC 3.39 L Hgb 10.5 L Hct 32.4 L MCV 96 H MCH Plt Count 106 L Lymph % (Auto) 6.7 L [place] % (Auto) Eos % (Auto) Baso % (Auto) Lymph # 0.6 L Baso # Seg Neutrophils % 86.8 H Lymphocytes % (Manual) Monocytes % (Manual) Nucleated RBC % Seg Neutrophils # 8.2 H Seg Neutrophils # Man Monocytes # (Manual) PT INR Activated Clotting Time POC ABG pH POC ABG pCO2 POC ABG pO2 Sodium Potassium Chloride Carbon Dioxide BUN Creatinine Glucose POC Glucose 146 H 148 H Calcium Magnesium Direct Bilirubin AST ALT Alkaline Phosphatase Total Creatine Kinase CK-MB (CK-2) CK-MB (CK-2) Rel Index Troponin T C-Reactive Protein Total Protein Albumin Triglycerides Ur Specific [place] Urine WBC (Auto) Miscellaneous Test 04/16/17 04/16/17 04/16/17 03:17 05:19 11:13 WBC RBC Hgb Hct MCV MCH Plt Count Lymph % (Auto) [place] % (Auto) Eos % (Auto) Baso % (Auto) Lymph # Baso # Seg Neutrophils % Lymphocytes % (Manual) Monocytes % (Manual) Nucleated RBC % Seg Neutrophils # Seg Neutrophils # Man Monocytes # (Manual) PT INR Activated Clotting Time POC ABG pH POC ABG pCO2 POC ABG pO2 Sodium 149 H Potassium Chloride 111.1 H Carbon Dioxide 20 L BUN 27 H Creatinine 0.3 L Glucose 156 H POC Glucose 171 H 169 H Calcium 8.3 L Magnesium Direct Bilirubin AST ALT Alkaline Phosphatase Total Creatine Kinase CK-MB (CK-2) CK-MB (CK-2) Rel Index Troponin T C-Reactive Protein Total Protein Albumin Triglycerides Ur Specific [place] Urine WBC (Auto) Miscellaneous Test 04/16/17 04/17/17 04/17/17 17:03 00:00 05:09 WBC RBC Hgb Hct MCV MCH Plt Count Lymph % (Auto) [place] % (Auto) Eos % (Auto) Baso % (Auto) Lymph # Baso # Seg Neutrophils % Lymphocytes % (Manual) Monocytes % (Manual) Nucleated RBC % Seg Neutrophils # Seg Neutrophils # Man Monocytes # (Manual) PT INR Activated Clotting Time POC ABG pH POC ABG pCO2 POC ABG pO2 Sodium Potassium Chloride Carbon Dioxide BUN Creatinine Glucose POC Glucose 151 H 165 H 145 H Calcium Magnesium Direct Bilirubin AST ALT Alkaline Phosphatase Total Creatine Kinase CK-MB (CK-2) CK-MB (CK-2) Rel Index Troponin T C-Reactive Protein Total Protein Albumin Triglycerides Ur Specific [place] Urine WBC (Auto) Miscellaneous Test 04/17/17 04/17/17 04/18/17 11:38 17:47 00:01 WBC RBC Hgb Hct MCV MCH Plt Count Lymph % (Auto) [place] % (Auto) Eos % (Auto) Baso % (Auto) Lymph # Baso # Seg Neutrophils % Lymphocytes % (Manual) Monocytes % (Manual) Nucleated RBC % Seg Neutrophils # Seg Neutrophils # Man Monocytes # (Manual) PT INR Activated Clotting Time POC ABG pH POC ABG pCO2 POC ABG pO2 Sodium Potassium Chloride Carbon Dioxide BUN Creatinine Glucose POC Glucose 170 H 161 H 131 H Calcium Magnesium Direct Bilirubin AST ALT Alkaline Phosphatase Total Creatine Kinase CK-MB (CK-2) CK-MB (CK-2) Rel Index Troponin T C-Reactive Protein Total Protein Albumin Triglycerides Ur Specific [place] Urine WBC (Auto) Miscellaneous Test 04/18/17 04/18/17 04/18/17 03:55 03:55 05:30 WBC RBC 3.05 L Hgb 9.8 L Hct 29.0 L MCV 95 H MCH Plt Count 113 L Lymph % (Auto) [place] % (Auto) Eos % (Auto) 5.3 H Baso % (Auto) Lymph # Baso # Seg Neutrophils % 71.5 H Lymphocytes % (Manual) Monocytes % (Manual) Nucleated RBC % Seg Neutrophils # Seg Neutrophils # Man Monocytes # (Manual) PT INR Activated Clotting Time POC ABG pH 7.460 H POC ABG pCO2 30.8 L POC ABG pO2 129 H Sodium Potassium Chloride Carbon Dioxide 21 L BUN 25 H Creatinine 0.4 L Glucose 123 H POC Glucose Calcium 8.3 L Magnesium Direct Bilirubin AST ALT Alkaline Phosphatase Total Creatine Kinase CK-MB (CK-2) CK-MB (CK-2) Rel Index Troponin T C-Reactive Protein Total Protein Albumin Triglycerides Ur Specific [place] Urine WBC (Auto) Miscellaneous Test 04/18/17 04/18/17 04/19/17 17:10 23:40 04:36 WBC RBC 3.21 L Hgb 10.2 L Hct 30.4 L MCV 95 H MCH Plt Count 131 L Lymph % (Auto) 12.1 L [place] % (Auto) Eos % (Auto) 4.7 H Baso % (Auto) 2.4 H Lymph # 0.9 L Baso # 0.2 H Seg Neutrophils % 75.0 H Lymphocytes % (Manual) Monocytes % (Manual) Nucleated RBC % Seg Neutrophils # Seg Neutrophils # Man Monocytes # (Manual) PT INR Activated Clotting Time POC ABG pH POC ABG pCO2 POC ABG pO2 Sodium Potassium Chloride Carbon Dioxide BUN Creatinine Glucose POC Glucose 135 H 157 H Calcium Magnesium Direct Bilirubin AST ALT Alkaline Phosphatase Total Creatine Kinase CK-MB (CK-2) CK-MB (CK-2) Rel Index Troponin T C-Reactive Protein Total Protein Albumin Triglycerides Ur Specific [place] Urine WBC (Auto) Miscellaneous Test 04/19/17 04/19/17 04/19/17 04:36 05:12 06:50 WBC RBC Hgb Hct MCV MCH Plt Count Lymph % (Auto) [place] % (Auto) Eos % (Auto) Baso % (Auto) Lymph # Baso # Seg Neutrophils % Lymphocytes % (Manual) Monocytes % (Manual) Nucleated RBC % Seg Neutrophils # Seg Neutrophils # Man Monocytes # (Manual) PT INR Activated Clotting Time POC ABG pH 7.516 H POC ABG pCO2 28.0 L POC ABG pO2 Sodium Potassium Chloride Carbon Dioxide 21 L BUN 23 H Creatinine 0.2 L Glucose 137 H POC Glucose 131 H Calcium 7.9 L Magnesium Direct Bilirubin AST ALT Alkaline Phosphatase Total Creatine Kinase CK-MB (CK-2) CK-MB (CK-2) Rel Index Troponin T C-Reactive Protein Total Protein Albumin Triglycerides Ur Specific [place] Urine WBC (Auto) Miscellaneous Test 04/19/17 04/19/17 04/20/17 12:36 17:42 00:12 WBC RBC Hgb Hct MCV MCH Plt Count Lymph % (Auto) [place] % (Auto) Eos % (Auto) Baso % (Auto) Lymph # Baso # Seg Neutrophils % Lymphocytes % (Manual) Monocytes % (Manual) Nucleated RBC % Seg Neutrophils # Seg Neutrophils # Man Monocytes # (Manual) PT INR Activated Clotting Time POC ABG pH POC ABG pCO2 POC ABG pO2 Sodium Potassium Chloride Carbon Dioxide BUN Creatinine Glucose POC Glucose 128 H 140 H 132 H Calcium Magnesium Direct Bilirubin AST ALT Alkaline Phosphatase Total Creatine Kinase CK-MB (CK-2) CK-MB (CK-2) Rel Index Troponin T C-Reactive Protein Total Protein Albumin Triglycerides Ur Specific [place] Urine WBC (Auto) Miscellaneous Test 04/20/17 04/20/17 04/20/17 03:35 03:35 05:10 WBC RBC 3.34 L Hgb 10.4 L Hct 31.6 L MCV 95 H MCH Plt Count Lymph % (Auto) 12.9 L [place] % (Auto) Eos % (Auto) Baso % (Auto) Lymph # Baso # Seg Neutrophils % 77.3 H Lymphocytes % (Manual) Monocytes % (Manual) Nucleated RBC % Seg Neutrophils # Seg Neutrophils # Man Monocytes # (Manual) PT INR Activated Clotting Time POC ABG pH POC ABG pCO2 POC ABG pO2 Sodium Potassium Chloride Carbon Dioxide BUN Creatinine 0.3 L Glucose 155 H POC Glucose 135 H Calcium 7.8 L Magnesium Direct Bilirubin AST ALT Alkaline Phosphatase Total Creatine Kinase CK-MB (CK-2) CK-MB (CK-2) Rel Index Troponin T C-Reactive Protein Total Protein Albumin Triglycerides Ur Specific [place] Urine WBC (Auto) Miscellaneous Test 04/20/17 04/20/17 04/21/17 12:49 18:21 00:05 WBC RBC Hgb Hct MCV MCH Plt Count Lymph % (Auto) [place] % (Auto) Eos % (Auto) Baso % (Auto) Lymph # Baso # Seg Neutrophils % Lymphocytes % (Manual) Monocytes % (Manual) Nucleated RBC % Seg Neutrophils # Seg Neutrophils # Man Monocytes # (Manual) PT INR Activated Clotting Time POC ABG pH POC ABG pCO2 POC ABG pO2 Sodium Potassium Chloride Carbon Dioxide BUN Creatinine Glucose POC Glucose 155 H 165 H 141 H Calcium Magnesium Direct Bilirubin AST ALT Alkaline Phosphatase Total Creatine Kinase CK-MB (CK-2) CK-MB (CK-2) Rel Index Troponin T C-Reactive Protein Total Protein Albumin Triglycerides Ur Specific [place] Urine WBC (Auto) Miscellaneous Test 04/21/17 04/21/17 04/21/17 06:00 12:11 17:04 WBC RBC Hgb Hct MCV MCH Plt Count Lymph % (Auto) [place] % (Auto) Eos % (Auto) Baso % (Auto) Lymph # Baso # Seg Neutrophils % Lymphocytes % (Manual) Monocytes % (Manual) Nucleated RBC % Seg Neutrophils # Seg Neutrophils # Man Monocytes # (Manual) PT INR Activated Clotting Time POC ABG pH POC ABG pCO2 POC ABG pO2 Sodium Potassium Chloride Carbon Dioxide BUN Creatinine Glucose POC Glucose 152 H 165 H 156 H Calcium Magnesium Direct Bilirubin AST ALT Alkaline Phosphatase Total Creatine Kinase CK-MB (CK-2) CK-MB (CK-2) Rel Index Troponin T C-Reactive Protein Total Protein Albumin Triglycerides Ur Specific [place] Urine WBC (Auto) Miscellaneous Test 04/21/17 04/21/17 04/22/17 22:00 23:59 05:49 WBC RBC Hgb Hct MCV MCH Plt Count Lymph % (Auto) [place] % (Auto) Eos % (Auto) Baso % (Auto) Lymph # Baso # Seg Neutrophils % Lymphocytes % (Manual) Monocytes % (Manual) Nucleated RBC % Seg Neutrophils # Seg Neutrophils # Man Monocytes # (Manual) PT INR Activated Clotting Time POC ABG pH POC ABG pCO2 POC ABG pO2 Sodium Potassium Chloride Carbon Dioxide BUN Creatinine Glucose POC Glucose 166 H 173 H Calcium Magnesium Direct Bilirubin AST ALT Alkaline Phosphatase Total Creatine Kinase CK-MB (CK-2) CK-MB (CK-2) Rel Index Troponin T C-Reactive Protein Total Protein Albumin Triglycerides Ur Specific [place] Urine WBC (Auto) 10.0 H Miscellaneous Test 04/22/17 04/22/17 04/23/17 11:11 18:04 00:37 WBC RBC Hgb Hct MCV MCH Plt Count Lymph % (Auto) [place] % (Auto) Eos % (Auto) Baso % (Auto) Lymph # Baso # Seg Neutrophils % Lymphocytes % (Manual) Monocytes % (Manual) Nucleated RBC % Seg Neutrophils # Seg Neutrophils # Man Monocytes # (Manual) PT INR Activated Clotting Time POC ABG pH POC ABG pCO2 POC ABG pO2 Sodium Potassium Chloride Carbon Dioxide BUN Creatinine Glucose POC Glucose 172 H 140 H 135 H Calcium Magnesium Direct Bilirubin AST ALT Alkaline Phosphatase Total Creatine Kinase CK-MB (CK-2) CK-MB (CK-2) Rel Index Troponin T C-Reactive Protein Total Protein Albumin Triglycerides Ur Specific [place] Urine WBC (Auto) Miscellaneous Test 04/23/17 04/23/17 04/23/17 05:33 06:20 11:10 WBC RBC 3.19 L Hgb 9.9 L Hct 30.0 L MCV MCH Plt Count Lymph % (Auto) 8.0 L [place] % (Auto) Eos % (Auto) Baso % (Auto) Lymph # 0.8 L Baso # Seg Neutrophils % 84.5 H Lymphocytes % (Manual) Monocytes % (Manual) Nucleated RBC % Seg Neutrophils # 8.2 H Seg Neutrophils # Man Monocytes # (Manual) PT INR Activated Clotting Time POC ABG pH POC ABG pCO2 POC ABG pO2 Sodium Potassium Chloride Carbon Dioxide BUN Creatinine Glucose POC Glucose 134 H 134 H Calcium Magnesium Direct Bilirubin AST ALT Alkaline Phosphatase Total Creatine Kinase CK-MB (CK-2) CK-MB (CK-2) Rel Index Troponin T C-Reactive Protein Total Protein Albumin Triglycerides Ur Specific [place] Urine WBC (Auto) Miscellaneous Test 04/23/17 04/24/17 04/24/17 17:26 00:53 06:46 WBC RBC Hgb Hct MCV MCH Plt Count Lymph % (Auto) [place] % (Auto) Eos % (Auto) Baso % (Auto) Lymph # Baso # Seg Neutrophils % Lymphocytes % (Manual) Monocytes % (Manual) Nucleated RBC % Seg Neutrophils # Seg Neutrophils # Man Monocytes # (Manual) PT INR Activated Clotting Time POC ABG pH POC ABG pCO2 POC ABG pO2 Sodium Potassium Chloride Carbon Dioxide BUN Creatinine Glucose POC Glucose 164 H 146 H 125 H Calcium Magnesium Direct Bilirubin AST ALT Alkaline Phosphatase Total Creatine Kinase CK-MB (CK-2) CK-MB (CK-2) Rel Index Troponin T C-Reactive Protein Total Protein Albumin Triglycerides Ur Specific [place] Urine WBC (Auto) Miscellaneous Test 04/24/17 04/24/17 04/24/17 11:55 17:50 23:36 WBC RBC Hgb Hct MCV MCH Plt Count Lymph % (Auto) [place] % (Auto) Eos % (Auto) Baso % (Auto) Lymph # Baso # Seg Neutrophils % Lymphocytes % (Manual) Monocytes % (Manual) Nucleated RBC % Seg Neutrophils # Seg Neutrophils # Man Monocytes # (Manual) PT INR Activated Clotting Time POC ABG pH POC ABG pCO2 POC ABG pO2 Sodium Potassium Chloride Carbon Dioxide BUN Creatinine Glucose POC Glucose 156 H 146 H 131 H Calcium Magnesium Direct Bilirubin AST ALT Alkaline Phosphatase Total Creatine Kinase CK-MB (CK-2) CK-MB (CK-2) Rel Index Troponin T C-Reactive Protein Total Protein Albumin Triglycerides Ur Specific [place] Urine WBC (Auto) Miscellaneous Test 04/25/17 04/25/17 04/25/17 04:51 05:16 07:07 WBC RBC Hgb Hct MCV MCH Plt Count Lymph % (Auto) [place] % (Auto) Eos % (Auto) Baso % (Auto) Lymph # Baso # Seg Neutrophils % Lymphocytes % (Manual) Monocytes % (Manual) Nucleated RBC % Seg Neutrophils # Seg Neutrophils # Man Monocytes # (Manual) PT INR Activated Clotting Time POC ABG pH POC ABG pCO2 POC ABG pO2 Sodium Potassium Chloride Carbon Dioxide BUN Creatinine Glucose POC Glucose 139 H Calcium Magnesium Direct Bilirubin AST 105 H ALT 204 H Alkaline Phosphatase 189 H Total Creatine Kinase CK-MB (CK-2) CK-MB (CK-2) Rel Index Troponin T C-Reactive Protein Total Protein Albumin 2.4 L Triglycerides Ur Specific [place] Urine WBC (Auto) Miscellaneous Test Flexitest 1 H 04/25/17 04/25/17 04/25/17 12:29 17:23 23:32 WBC RBC Hgb Hct MCV MCH Plt Count Lymph % (Auto) [place] % (Auto) Eos % (Auto) Baso % (Auto) Lymph # Baso # Seg Neutrophils % Lymphocytes % (Manual) Monocytes % (Manual) Nucleated RBC % Seg Neutrophils # Seg Neutrophils # Man Monocytes # (Manual) PT INR Activated Clotting Time POC ABG pH POC ABG pCO2 POC ABG pO2 Sodium Potassium Chloride Carbon Dioxide BUN Creatinine Glucose POC Glucose 132 H 133 H 128 H Calcium Magnesium Direct Bilirubin AST ALT Alkaline Phosphatase Total Creatine Kinase CK-MB (CK-2) CK-MB (CK-2) Rel Index Troponin T C-Reactive Protein Total Protein Albumin Triglycerides Ur Specific [place] Urine WBC (Auto) Miscellaneous Test 04/26/17 04/26/17 04/26/17 05:24 11:28 17:09 WBC RBC Hgb Hct MCV MCH Plt Count Lymph % (Auto) [place] % (Auto) Eos % (Auto) Baso % (Auto) Lymph # Baso # Seg Neutrophils % Lymphocytes % (Manual) Monocytes % (Manual) Nucleated RBC % Seg Neutrophils # Seg Neutrophils # Man Monocytes # (Manual) PT INR Activated Clotting Time POC ABG pH POC ABG pCO2 POC ABG pO2 Sodium Potassium Chloride Carbon Dioxide BUN Creatinine Glucose POC Glucose 132 H 146 H 141 H Calcium Magnesium Direct Bilirubin AST ALT Alkaline Phosphatase Total Creatine Kinase CK-MB (CK-2) CK-MB (CK-2) Rel Index Troponin T C-Reactive Protein Total Protein Albumin Triglycerides Ur Specific [place] Urine WBC (Auto) Miscellaneous Test 04/26/17 04/27/17 04/27/17 23:52 05:40 05:40 WBC RBC 3.22 L Hgb 10.0 L Hct 29.9 L MCV MCH Plt Count Lymph % (Auto) [place] % (Auto) Eos % (Auto) Baso % (Auto) Lymph # Baso # Seg Neutrophils % 76.6 H Lymphocytes % (Manual) Monocytes % (Manual) Nucleated RBC % Seg Neutrophils # Seg Neutrophils # Man Monocytes # (Manual) PT INR Activated Clotting Time POC ABG pH POC ABG pCO2 POC ABG pO2 Sodium Potassium Chloride Carbon Dioxide BUN Creatinine Glucose POC Glucose 140 H Calcium Magnesium Direct Bilirubin AST 66 H ALT 137 H Alkaline Phosphatase 169 H Total Creatine Kinase CK-MB (CK-2) CK-MB (CK-2) Rel Index Troponin T C-Reactive Protein Total Protein 6.2 L Albumin 2.6 L Triglycerides Ur Specific [place] Urine WBC (Auto) Miscellaneous Test 04/27/17 04/27/17 04/27/17 05:40 06:10 11:13 WBC RBC Hgb Hct MCV MCH Plt Count Lymph % (Auto) [place] % (Auto) Eos % (Auto) Baso % (Auto) Lymph # Baso # Seg Neutrophils % Lymphocytes % (Manual) Monocytes % (Manual) Nucleated RBC % Seg Neutrophils # Seg Neutrophils # Man Monocytes # (Manual) PT INR Activated Clotting Time POC ABG pH POC ABG pCO2 POC ABG pO2 Sodium Potassium Chloride Carbon Dioxide BUN Creatinine 0.2 L Glucose 139 H POC Glucose 130 H 151 H Calcium Magnesium Direct Bilirubin AST ALT Alkaline Phosphatase Total Creatine Kinase CK-MB (CK-2) CK-MB (CK-2) Rel Index Troponin T C-Reactive Protein Total Protein Albumin Triglycerides Ur Specific [place] Urine WBC (Auto) Miscellaneous Test 04/27/17 04/27/17 04/28/17 17:37 23:19 05:24 WBC RBC Hgb Hct MCV MCH Plt Count Lymph % (Auto) [place] % (Auto) Eos % (Auto) Baso % (Auto) Lymph # Baso # Seg Neutrophils % Lymphocytes % (Manual) Monocytes % (Manual) Nucleated RBC % Seg Neutrophils # Seg Neutrophils # Man Monocytes # (Manual) PT INR Activated Clotting Time POC ABG pH POC ABG pCO2 POC ABG pO2 Sodium Potassium Chloride Carbon Dioxide BUN Creatinine Glucose POC Glucose 159 H 130 H 132 H Calcium Magnesium Direct Bilirubin AST ALT Alkaline Phosphatase Total Creatine Kinase CK-MB (CK-2) CK-MB (CK-2) Rel Index Troponin T C-Reactive Protein Total Protein Albumin Triglycerides Ur Specific [place] Urine WBC (Auto) Miscellaneous Test 04/28/17 04/28/17 04/28/17 11:15 17:38 23:23 WBC RBC Hgb Hct MCV MCH Plt Count Lymph % (Auto) [place] % (Auto) Eos % (Auto) Baso % (Auto) Lymph # Baso # Seg Neutrophils % Lymphocytes % (Manual) Monocytes % (Manual) Nucleated RBC % Seg Neutrophils # Seg Neutrophils # Man Monocytes # (Manual) PT INR Activated Clotting Time POC ABG pH POC ABG pCO2 POC ABG pO2 Sodium Potassium Chloride Carbon Dioxide BUN Creatinine Glucose POC Glucose 162 H 133 H 138 H Calcium Magnesium Direct Bilirubin AST ALT Alkaline Phosphatase Total Creatine Kinase CK-MB (CK-2) CK-MB (CK-2) Rel Index Troponin T C-Reactive Protein Total Protein Albumin Triglycerides Ur Specific [place] Urine WBC (Auto) Miscellaneous Test 04/29/17 04/29/17 04/29/17 05:15 12:55 17:21 WBC RBC Hgb Hct MCV MCH Plt Count Lymph % (Auto) [place] % (Auto) Eos % (Auto) Baso % (Auto) Lymph # Baso # Seg Neutrophils % Lymphocytes % (Manual) Monocytes % (Manual) Nucleated RBC % Seg Neutrophils # Seg Neutrophils # Man Monocytes # (Manual) PT INR Activated Clotting Time POC ABG pH POC ABG pCO2 POC ABG pO2 Sodium Potassium Chloride Carbon Dioxide BUN Creatinine Glucose POC Glucose 135 H 127 H 138 H Calcium Magnesium Direct Bilirubin AST ALT Alkaline Phosphatase Total Creatine Kinase CK-MB (CK-2) CK-MB (CK-2) Rel Index Troponin T C-Reactive Protein Total Protein Albumin Triglycerides Ur Specific [place] Urine WBC (Auto) Miscellaneous Test 04/29/17 04/30/17 04/30/17 23:52 04:55 12:22 WBC RBC Hgb Hct MCV MCH Plt Count Lymph % (Auto) [place] % (Auto) Eos % (Auto) Baso % (Auto) Lymph # Baso # Seg Neutrophils % Lymphocytes % (Manual) Monocytes % (Manual) Nucleated RBC % Seg Neutrophils # Seg Neutrophils # Man Monocytes # (Manual) PT INR Activated Clotting Time POC ABG pH POC ABG pCO2 POC ABG pO2 Sodium Potassium Chloride Carbon Dioxide BUN Creatinine Glucose POC Glucose 142 H 146 H 132 H Calcium Magnesium Direct Bilirubin AST ALT Alkaline Phosphatase Total Creatine Kinase CK-MB (CK-2) CK-MB (CK-2) Rel Index Troponin T C-Reactive Protein Total Protein Albumin Triglycerides Ur Specific [place] Urine WBC (Auto) Miscellaneous Test 04/30/17 04/30/17 04/30/17 14:25 17:47 18:20 WBC RBC Hgb Hct MCV MCH Plt Count Lymph % (Auto) [place] % (Auto) Eos % (Auto) Baso % (Auto) Lymph # Baso # Seg Neutrophils % Lymphocytes % (Manual) Monocytes % (Manual) Nucleated RBC % Seg Neutrophils # Seg Neutrophils # Man Monocytes # (Manual) PT INR Activated Clotting Time POC ABG pH 7.551 H POC ABG pCO2 32.7 L POC ABG pO2 Sodium Potassium Chloride Carbon Dioxide BUN 21 H Creatinine 0.2 L Glucose 141 H POC Glucose 139 H Calcium Magnesium Direct Bilirubin AST ALT Alkaline Phosphatase Total Creatine Kinase CK-MB (CK-2) CK-MB (CK-2) Rel Index Troponin T C-Reactive Protein Total Protein Albumin Triglycerides Ur Specific [place] Urine WBC (Auto) Miscellaneous Test 05/01/17 05/01/17 05/01/17 01:26 05:30 05:30 WBC RBC 3.49 L Hgb 10.3 L Hct 31.9 L MCV MCH Plt Count Lymph % (Auto) [place] % (Auto) 8.1 H Eos % (Auto) Baso % (Auto) Lymph # Baso # Seg Neutrophils % 71.3 H Lymphocytes % (Manual) Monocytes % (Manual) Nucleated RBC % Seg Neutrophils # Seg Neutrophils # Man Monocytes # (Manual) PT INR Activated Clotting Time POC ABG pH POC ABG pCO2 POC ABG pO2 Sodium 136 L Potassium Chloride 97.6 L Carbon Dioxide BUN Creatinine 0.2 L Glucose 123 H POC Glucose 116 H Calcium Magnesium Direct Bilirubin AST 71 H ALT 125 H Alkaline Phosphatase 158 H Total Creatine Kinase CK-MB (CK-2) CK-MB (CK-2) Rel Index Troponin T C-Reactive Protein Total Protein Albumin 2.6 L Triglycerides Ur Specific [place] Urine WBC (Auto) Miscellaneous Test 05/01/17 05/01/17 05/02/17 11:59 17:23 00:08 WBC RBC Hgb Hct MCV MCH Plt Count Lymph % (Auto) [place] % (Auto) Eos % (Auto) Baso % (Auto) Lymph # Baso # Seg Neutrophils % Lymphocytes % (Manual) Monocytes % (Manual) Nucleated RBC % Seg Neutrophils # Seg Neutrophils # Man Monocytes # (Manual) PT INR Activated Clotting Time POC ABG pH POC ABG pCO2 POC ABG pO2 Sodium Potassium Chloride Carbon Dioxide BUN Creatinine Glucose POC Glucose 118 H 144 H 122 H Calcium Magnesium Direct Bilirubin AST ALT Alkaline Phosphatase Total Creatine Kinase CK-MB (CK-2) CK-MB (CK-2) Rel Index Troponin T C-Reactive Protein Total Protein Albumin Triglycerides Ur Specific [place] Urine WBC (Auto) Miscellaneous Test 05/02/17 05/02/17 05/02/17 05:50 11:21 17:48 WBC RBC Hgb Hct MCV MCH Plt Count Lymph % (Auto) [place] % (Auto) Eos % (Auto) Baso % (Auto) Lymph # Baso # Seg Neutrophils % Lymphocytes % (Manual) Monocytes % (Manual) Nucleated RBC % Seg Neutrophils # Seg Neutrophils # Man Monocytes # (Manual) PT INR Activated Clotting Time POC ABG pH POC ABG pCO2 POC ABG pO2 Sodium Potassium Chloride Carbon Dioxide BUN Creatinine Glucose POC Glucose 120 H 121 H 140 H Calcium Magnesium Direct Bilirubin AST ALT Alkaline Phosphatase Total Creatine Kinase CK-MB (CK-2) CK-MB (CK-2) Rel Index Troponin T C-Reactive Protein Total Protein Albumin Triglycerides Ur Specific [place] Urine WBC (Auto) Miscellaneous Test 05/02/17 05/03/17 05/03/17 23:12 05:35 11:52 WBC RBC Hgb Hct MCV MCH Plt Count Lymph % (Auto) [place] % (Auto) Eos % (Auto) Baso % (Auto) Lymph # Baso # Seg Neutrophils % Lymphocytes % (Manual) Monocytes % (Manual) Nucleated RBC % Seg Neutrophils # Seg Neutrophils # Man Monocytes # (Manual) PT INR Activated Clotting Time POC ABG pH POC ABG pCO2 POC ABG pO2 Sodium Potassium Chloride Carbon Dioxide BUN Creatinine Glucose POC Glucose 128 H 113 H 126 H Calcium Magnesium Direct Bilirubin AST ALT Alkaline Phosphatase Total Creatine Kinase CK-MB (CK-2) CK-MB (CK-2) Rel Index Troponin T C-Reactive Protein Total Protein Albumin Triglycerides Ur Specific [place] Urine WBC (Auto) Miscellaneous Test 05/03/17 05/03/17 05/04/17 17:29 23:26 04:55 WBC RBC Hgb Hct MCV MCH Plt Count Lymph % (Auto) [place] % (Auto) Eos % (Auto) Baso % (Auto) Lymph # Baso # Seg Neutrophils % Lymphocytes % (Manual) Monocytes % (Manual) Nucleated RBC % Seg Neutrophils # Seg Neutrophils # Man Monocytes # (Manual) PT INR Activated Clotting Time POC ABG pH POC ABG pCO2 POC ABG pO2 Sodium Potassium Chloride Carbon Dioxide BUN Creatinine Glucose POC Glucose 141 H 129 H 126 H Calcium Magnesium Direct Bilirubin AST ALT Alkaline Phosphatase Total Creatine Kinase CK-MB (CK-2) CK-MB (CK-2) Rel Index Troponin T C-Reactive Protein Total Protein Albumin Triglycerides Ur Specific [place] Urine WBC (Auto) Miscellaneous Test 05/04/17 05/04/17 05/05/17 12:09 17:46 00:06 WBC RBC Hgb Hct MCV MCH Plt Count Lymph % (Auto) [place] % (Auto) Eos % (Auto) Baso % (Auto) Lymph # Baso # Seg Neutrophils % Lymphocytes % (Manual) Monocytes % (Manual) Nucleated RBC % Seg Neutrophils # Seg Neutrophils # Man Monocytes # (Manual) PT INR Activated Clotting Time POC ABG pH POC ABG pCO2 POC ABG pO2 Sodium Potassium Chloride Carbon Dioxide BUN Creatinine Glucose POC Glucose 125 H 125 H 110 H Calcium Magnesium Direct Bilirubin AST ALT Alkaline Phosphatase Total Creatine Kinase CK-MB (CK-2) CK-MB (CK-2) Rel Index Troponin T C-Reactive Protein Total Protein Albumin Triglycerides Ur Specific [place] Urine WBC (Auto) Miscellaneous Test 05/05/17 05/05/17 05/05/17 05:48 11:41 16:19 WBC RBC Hgb Hct MCV MCH Plt Count Lymph % (Auto) [place] % (Auto) Eos % (Auto) Baso % (Auto) Lymph # Baso # Seg Neutrophils % Lymphocytes % (Manual) Monocytes % (Manual) Nucleated RBC % Seg Neutrophils # Seg Neutrophils # Man Monocytes # (Manual) PT INR Activated Clotting Time POC ABG pH POC ABG pCO2 POC ABG pO2 Sodium Potassium Chloride Carbon Dioxide BUN Creatinine Glucose POC Glucose 124 H 122 H 120 H Calcium Magnesium Direct Bilirubin AST ALT Alkaline Phosphatase Total Creatine Kinase CK-MB (CK-2) CK-MB (CK-2) Rel Index Troponin T C-Reactive Protein Total Protein Albumin Triglycerides Ur Specific [place] Urine WBC (Auto) Miscellaneous Test 05/06/17 05/06/17 05/06/17 00:16 05:47 11:42 WBC RBC Hgb Hct MCV MCH Plt Count Lymph % (Auto) [place] % (Auto) Eos % (Auto) Baso % (Auto) Lymph # Baso # Seg Neutrophils % Lymphocytes % (Manual) Monocytes % (Manual) Nucleated RBC % Seg Neutrophils # Seg Neutrophils # Man Monocytes # (Manual) PT INR Activated Clotting Time POC ABG pH POC ABG pCO2 POC ABG pO2 Sodium Potassium Chloride Carbon Dioxide BUN Creatinine Glucose POC Glucose 110 H 142 H 120 H Calcium Magnesium Direct Bilirubin AST ALT Alkaline Phosphatase Total Creatine Kinase CK-MB (CK-2) CK-MB (CK-2) Rel Index Troponin T C-Reactive Protein Total Protein Albumin Triglycerides Ur Specific [place] Urine WBC (Auto) Miscellaneous Test 05/06/17 05/07/17 05/07/17 17:46 00:07 05:28 WBC RBC Hgb Hct MCV MCH Plt Count Lymph % (Auto) [place] % (Auto) Eos % (Auto) Baso % (Auto) Lymph # Baso # Seg Neutrophils % Lymphocytes % (Manual) Monocytes % (Manual) Nucleated RBC % Seg Neutrophils # Seg Neutrophils # Man Monocytes # (Manual) PT INR Activated Clotting Time POC ABG pH POC ABG pCO2 POC ABG pO2 Sodium Potassium Chloride Carbon Dioxide BUN Creatinine Glucose POC Glucose 127 H 145 H 124 H Calcium Magnesium Direct Bilirubin AST ALT Alkaline Phosphatase Total Creatine Kinase CK-MB (CK-2) CK-MB (CK-2) Rel Index Troponin T C-Reactive Protein Total Protein Albumin Triglycerides Ur Specific [place] Urine WBC (Auto) Miscellaneous Test 05/07/17 05/07/17 05/08/17 11:17 17:14 00:03 WBC RBC Hgb Hct MCV MCH Plt Count Lymph % (Auto) [place] % (Auto) Eos % (Auto) Baso % (Auto) Lymph # Baso # Seg Neutrophils % Lymphocytes % (Manual) Monocytes % (Manual) Nucleated RBC % Seg Neutrophils # Seg Neutrophils # Man Monocytes # (Manual) PT INR Activated Clotting Time POC ABG pH POC ABG pCO2 POC ABG pO2 Sodium Potassium Chloride Carbon Dioxide BUN Creatinine Glucose POC Glucose 144 H 125 H 122 H Calcium Magnesium Direct Bilirubin AST ALT Alkaline Phosphatase Total Creatine Kinase CK-MB (CK-2) CK-MB (CK-2) Rel Index Troponin T C-Reactive Protein Total Protein Albumin Triglycerides Ur Specific [place] Urine WBC (Auto) Miscellaneous Test 05/08/17 05/08/17 05/08/17 05:43 12:07 18:02 WBC RBC Hgb Hct MCV MCH Plt Count Lymph % (Auto) [place] % (Auto) Eos % (Auto) Baso % (Auto) Lymph # Baso # Seg Neutrophils % Lymphocytes % (Manual) Monocytes % (Manual) Nucleated RBC % Seg Neutrophils # Seg Neutrophils # Man Monocytes # (Manual) PT INR Activated Clotting Time POC ABG pH POC ABG pCO2 POC ABG pO2 Sodium Potassium Chloride Carbon Dioxide BUN Creatinine Glucose POC Glucose 117 H 114 H 129 H Calcium Magnesium Direct Bilirubin AST ALT Alkaline Phosphatase Total Creatine Kinase CK-MB (CK-2) CK-MB (CK-2) Rel Index Troponin T C-Reactive Protein Total Protein Albumin Triglycerides Ur Specific [place] Urine WBC (Auto) Miscellaneous Test 05/08/17 05/09/17 23:53 05:14 WBC RBC Hgb Hct MCV MCH Plt Count Lymph % (Auto) [place] % (Auto) Eos % (Auto) Baso % (Auto) Lymph # Baso # Seg Neutrophils % Lymphocytes % (Manual) Monocytes % (Manual) Nucleated RBC % Seg Neutrophils # Seg Neutrophils # Man Monocytes # (Manual) PT INR Activated Clotting Time POC ABG pH POC ABG pCO2 POC ABG pO2 Sodium Potassium Chloride Carbon Dioxide BUN Creatinine Glucose POC Glucose 125 H 118 H Calcium Magnesium Direct Bilirubin AST ALT Alkaline Phosphatase Total Creatine Kinase CK-MB (CK-2) CK-MB (CK-2) Rel Index Troponin T C-Reactive Protein Total Protein Albumin Triglycerides Ur Specific [place] Urine WBC (Auto) Miscellaneous Test
[2017-05-09] MEDS: PLAVIX PO SCH (09:35)
[2017-05-09] MEDS: PROTONIX FEEDTUBE SCH (09:35)
[2017-05-09] MEDS: ASPIRIN PO SCH (09:35)
[2017-05-09] MEDS: ELIQUIS PO SCH ×2 (09:35→21:43)
[2017-05-09] MEDS: CORDARONE PO SCH ×2 (09:35→21:44)
[2017-05-09] MEDS: ZESTRIL PO SCH (09:36)
[2017-05-09] MEDS: LOPRESSOR PO SCH (09:36)
--- NOTE | 2017-05-09 12:25 | Progress Note ---
Assessment and Plan 46 year old male with anoxic brain injury, due to cardiac arrest on 03/29/2017. He continues unresponsive. The last EEG per Dr. Perkins reveals no definite cortical activity. CT reveals extensive ischemic damage. 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 This is a very sad case as the patient is so young and had seemingly no health issues before this event. Prognosis is extremely poor. Awaiting progression to a T-piece. Plan - Will watch for family to discuss case Continue supportive care as is. Encourage family to place as DNR Subjective Date of service: 05/09/17 Principal diagnosis: coma,ARV,s/p arrest Interval history: This 46 year old male sustained a witnessed carduac arrest on 03/29/2017, was brought to ER and transferred to laboratory mechanical technician for care of acute [place]. 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 Echocardiogram reveals EF of 30 to 35%. A CT scan of the brain on 04/04/17 revealed diffuse edema consistent with anoxic injury. A repeat scan on 05/05/2017 revealed resolution of the edema with atrophy and laminar necrosis in parietal and occipital lobes consistent with anoxic injury and ischemic damage. The patient has undergone trach. and PEG placement. His exam has been stable with no response, occasional withdrawal to pain, eyes open with spontaneous blinking. 05/09/17 Today the patient continues the same. Eye open, blinking, appears to be looking. No response to voice or pain. Objective - Exam Narrative Exam: HEENT - pupils are fixed at 4 mm. face symmetric. neck supple. Chest - clear to auscultation. Heart - reg. rate. normal S-1,S-2. Abdomen - soft, nontender. normal bowel sounds. Extremities - no edema. no lesions. Neuro - no response to verbal stimuli. No response to painful stimuli. CN's - eyes are yolked, seem to independently move in all directions. blinks spontaneously, but not to threat. Does not follow a flashlight. face is symmetric. Corneals intact. Swallows and yawns spontaneously. Motor - no spontaneous movement. no movement to painful stimuli. Reflexes - +3 on the rt., +2 on the lt. Sensory - no movement to pain. Cerebellar - cannot assess. - Vital Sign Vital Signs - 12hr 05/09/17 05/09/17 05/09/17 00:30 00:34 01:00 Temperature 98.9 F Pulse Rate 88 88 Pulse Rate [ From Monitor] Respiratory 12 10 L Rate Blood Pressure 92/56 92/56 O2 Sat by Pulse 98 95 Oximetry 05/09/17 05/09/17 05/09/17 01:30 02:00 02:30 Temperature Pulse Rate 88 88 86 Pulse Rate [ From Monitor] Respiratory 20 22 18 Rate Blood Pressure 95/48 95/53 96/57 O2 Sat by Pulse 96 96 97 Oximetry 05/09/17 05/09/17 05/09/17 03:00 03:30 04:00 Temperature Pulse Rate 92 H 92 H 87 Pulse Rate [ From Monitor] Respiratory 16 24 15 Rate Blood Pressure 106/61 100/61 89/48 O2 Sat by Pulse 97 98 98 Oximetry 05/09/17 05/09/17 05/09/17 04:10 04:30 05:00 Temperature 99.0 F Pulse Rate 91 H 88 Pulse Rate [ From Monitor] Respiratory 24 17 Rate Blood Pressure 95/58 94/57 O2 Sat by Pulse 97 97 Oximetry 05/09/17 05/09/17 05/09/17 05:30 06:00 06:30 Temperature Pulse Rate 91 H 88 87 Pulse Rate [ From Monitor] Respiratory 23 23 21 Rate Blood Pressure 94/57 99/59 89/48 O2 Sat by Pulse 96 96 96 Oximetry 05/09/17 05/09/17 05/09/17 07:00 07:30 08:00 Temperature 98.6 F Pulse Rate 92 H 88 85 Pulse Rate [ From Monitor] Respiratory 17 21 20 Rate Blood Pressure 92/51 84/45 89/45 O2 Sat by Pulse 98 96 96 Oximetry 05/09/17 05/09/17 05/09/17 08:25 08:30 09:00 Temperature Pulse Rate 87 82 Pulse Rate [ 82 From Monitor] Respiratory 20 14 17 Rate Blood Pressure 94/53 89/51 O2 Sat by Pulse 98 96 96 Oximetry 05/09/17 05/09/17 05/09/17 09:11 09:30 09:36 Temperature Pulse Rate 82 83 82 Pulse Rate [ From Monitor] Respiratory 12 17 Rate Blood Pressure 83/51 91/56 91/56 O2 Sat by Pulse 98 98 Oximetry 0205/09/17 05/09/17 10:00 10:30 11:00 Temperature Pulse Rate 81 75 79 Pulse Rate [ From Monitor] Respiratory 18 16 17 Rate Blood Pressure 92/56 84/52 86/49 O2 Sat by Pulse 97 97 98 Oximetry 05/09/17 05/09/17 11:32 12:00 Temperature 98.7 F Pulse Rate 81 Pulse Rate [ From Monitor] Respiratory 18 Rate Blood Pressure 105/65 O2 Sat by Pulse 100 Oximetry - Laboratory Findings CBC and BMP: 05/01/17 05:30 05/01/17 05:30 Abnormal Lab Findings: Abnormal Labs 03/29/17 03/29/17 03/29/17 11:35 11:35 11:40 WBC RBC Hgb Hct MCV 98 H MCH 33 H Plt Count Lymph % (Auto) [place] % (Auto) Eos % (Auto) Baso % (Auto) Lymph # Baso # Seg Neutrophils % Lymphocytes % (Manual) Monocytes % (Manual) 9.0 H Nucleated RBC % 1.0 H Seg Neutrophils # Seg Neutrophils # Man Monocytes # (Manual) 0.9 H PT 15.8 H INR 1.20 H Activated Clotting Time POC ABG pH POC ABG pCO2 POC ABG pO2 Sodium Potassium 2.7 L* Chloride 95.3 L Carbon Dioxide 17 L BUN Creatinine Glucose 435 H POC Glucose Calcium Magnesium Direct Bilirubin AST ALT Alkaline Phosphatase Total Creatine Kinase CK-MB (CK-2) CK-MB (CK-2) Rel Index Troponin T C-Reactive Protein Total Protein 6.1 L Albumin 3.5 L Triglycerides Ur Specific [place] Urine WBC (Auto) Miscellaneous Test 03/29/17 03/29/17 03/29/17 12:34 13:10 13:25 WBC RBC Hgb Hct MCV MCH Plt Count Lymph % (Auto) [place] % (Auto) Eos % (Auto) Baso % (Auto) Lymph # Baso # Seg Neutrophils % Lymphocytes % (Manual) Monocytes % (Manual) Nucleated RBC % Seg Neutrophils # Seg Neutrophils # Man Monocytes # (Manual) PT INR Activated Clotting Time 142 H 169 H 175 H POC ABG pH POC ABG pCO2 POC ABG pO2 Sodium Potassium Chloride Carbon Dioxide BUN Creatinine Glucose POC Glucose Calcium Magnesium Direct Bilirubin AST ALT Alkaline Phosphatase Total Creatine Kinase CK-MB (CK-2) CK-MB (CK-2) Rel Index Troponin T C-Reactive Protein Total Protein Albumin Triglycerides Ur Specific [place] Urine WBC (Auto) Miscellaneous Test 03/29/17 03/29/17 03/29/17 14:50 15:18 19:52 WBC RBC Hgb Hct MCV MCH Plt Count Lymph % (Auto) [place] % (Auto) Eos % (Auto) Baso % (Auto) Lymph # Baso # Seg Neutrophils % Lymphocytes % (Manual) Monocytes % (Manual) Nucleated RBC % Seg Neutrophils # Seg Neutrophils # Man Monocytes # (Manual) PT INR Activated Clotting Time 175 H POC ABG pH 7.293 L POC ABG pCO2 POC ABG pO2 602 H Sodium Potassium Chloride Carbon Dioxide BUN Creatinine Glucose POC Glucose Calcium Magnesium Direct Bilirubin AST ALT Alkaline Phosphatase Total Creatine Kinase 7263 H CK-MB (CK-2) > 300.0 H CK-MB (CK-2) Rel Index 4.1 H Troponin T 8.080 H* D C-Reactive Protein Total Protein Albumin Triglycerides 195 H Ur Specific [place] Urine WBC (Auto) Miscellaneous Test 03/30/17 03/30/17 03/30/17 03:50 03:50 06:19 WBC 19.5 H RBC Hgb Hct MCV MCH Plt Count Lymph % (Auto) [place] % (Auto) Eos % (Auto) Baso % (Auto) Lymph # Baso # Seg Neutrophils % Lymphocytes % (Manual) 7.0 L Monocytes % (Manual) Nucleated RBC % Seg Neutrophils # Seg Neutrophils # Man 12.7 H Monocytes # (Manual) 1.4 H PT INR Activated Clotting Time POC ABG pH POC ABG pCO2 28.2 L POC ABG pO2 108 H Sodium Potassium Chloride 108.9 H Carbon Dioxide 15 L BUN 25 H Creatinine Glucose 158 H POC Glucose Calcium 8.1 L Magnesium Direct Bilirubin AST ALT Alkaline Phosphatase Total Creatine Kinase 7963 H CK-MB (CK-2) > 300.0 H CK-MB (CK-2) Rel Index Troponin T 6.850 H* C-Reactive Protein Total Protein Albumin Triglycerides Ur Specific [place] Urine WBC (Auto) Miscellaneous Test 03/30/17 03/30/17 03/31/17 09:45 16:04 02:19 WBC RBC Hgb Hct MCV MCH Plt Count Lymph % (Auto) [place] % (Auto) Eos % (Auto) Baso % (Auto) Lymph # Baso # Seg Neutrophils % Lymphocytes % (Manual) Monocytes % (Manual) Nucleated RBC % Seg Neutrophils # Seg Neutrophils # Man Monocytes # (Manual) PT INR Activated Clotting Time POC ABG pH POC ABG pCO2 POC ABG pO2 Sodium Potassium Chloride Carbon Dioxide BUN Creatinine Glucose POC Glucose 137 H Calcium Magnesium Direct Bilirubin AST ALT Alkaline Phosphatase Total Creatine Kinase CK-MB (CK-2) CK-MB (CK-2) Rel Index Troponin T C-Reactive Protein 21.80 H Total Protein Albumin Triglycerides Ur Specific [place] 1.031 H Urine WBC (Auto) Miscellaneous Test 03/31/17 03/31/17 03/31/17 03:57 06:54 09:22 WBC RBC Hgb Hct MCV MCH Plt Count Lymph % (Auto) [place] % (Auto) Eos % (Auto) Baso % (Auto) Lymph # Baso # Seg Neutrophils % Lymphocytes % (Manual) Monocytes % (Manual) Nucleated RBC % Seg Neutrophils # Seg Neutrophils # Man Monocytes # (Manual) PT INR Activated Clotting Time POC ABG pH 7.475 H POC ABG pCO2 25.4 L POC ABG pO2 62 L Sodium Potassium Chloride Carbon Dioxide 19 L BUN 22 H Creatinine 0.6 L Glucose 148 H POC Glucose 143 H Calcium 8.3 L Magnesium Direct Bilirubin AST ALT Alkaline Phosphatase Total Creatine Kinase CK-MB (CK-2) CK-MB (CK-2) Rel Index Troponin T C-Reactive Protein Total Protein Albumin Triglycerides Ur Specific [place] Urine WBC (Auto) Miscellaneous Test 03/31/17 03/31/17 03/31/17 11:40 17:47 23:38 WBC RBC Hgb Hct MCV MCH Plt Count Lymph % (Auto) [place] % (Auto) Eos % (Auto) Baso % (Auto) Lymph # Baso # Seg Neutrophils % Lymphocytes % (Manual) Monocytes % (Manual) Nucleated RBC % Seg Neutrophils # Seg Neutrophils # Man Monocytes # (Manual) PT INR Activated Clotting Time POC ABG pH POC ABG pCO2 POC ABG pO2 Sodium Potassium Chloride Carbon Dioxide BUN Creatinine Glucose POC Glucose 127 H 137 H 148 H Calcium Magnesium Direct Bilirubin AST ALT Alkaline Phosphatase Total Creatine Kinase CK-MB (CK-2) CK-MB (CK-2) Rel Index Troponin T C-Reactive Protein Total Protein Albumin Triglycerides Ur Specific [place] Urine WBC (Auto) Miscellaneous Test 04/01/17 04/01/17 04/01/17 04:29 05:01 11:54 WBC RBC Hgb Hct MCV MCH Plt Count Lymph % (Auto) [place] % (Auto) Eos % (Auto) Baso % (Auto) Lymph # Baso # Seg Neutrophils % Lymphocytes % (Manual) Monocytes % (Manual) Nucleated RBC % Seg Neutrophils # Seg Neutrophils # Man Monocytes # (Manual) PT INR Activated Clotting Time POC ABG pH 7.513 H POC ABG pCO2 22.1 L POC ABG pO2 64 L Sodium Potassium Chloride Carbon Dioxide BUN Creatinine Glucose POC Glucose 121 H Calcium Magnesium Direct Bilirubin AST ALT Alkaline Phosphatase Total Creatine Kinase CK-MB (CK-2) CK-MB (CK-2) Rel Index Troponin T C-Reactive Protein Total Protein Albumin Triglycerides 151 H Ur Specific [place] Urine WBC (Auto) Miscellaneous Test 04/01/17 04/02/17 04/02/17 18:17 00:11 04:52 WBC RBC Hgb Hct MCV MCH Plt Count Lymph % (Auto) [place] % (Auto) Eos % (Auto) Baso % (Auto) Lymph # Baso # Seg Neutrophils % Lymphocytes % (Manual) Monocytes % (Manual) Nucleated RBC % Seg Neutrophils # Seg Neutrophils # Man Monocytes # (Manual) PT INR Activated Clotting Time POC ABG pH 7.524 H POC ABG pCO2 25.5 L POC ABG pO2 66 L Sodium Potassium Chloride Carbon Dioxide BUN Creatinine Glucose POC Glucose 117 H 122 H Calcium Magnesium Direct Bilirubin AST ALT Alkaline Phosphatase Total Creatine Kinase CK-MB (CK-2) CK-MB (CK-2) Rel Index Troponin T C-Reactive Protein Total Protein Albumin Triglycerides Ur Specific [place] Urine WBC (Auto) Miscellaneous Test 04/02/17 04/02/17 04/02/17 05:18 10:41 12:19 WBC RBC Hgb Hct MCV MCH Plt Count Lymph % (Auto) [place] % (Auto) Eos % (Auto) Baso % (Auto) Lymph # Baso # Seg Neutrophils % Lymphocytes % (Manual) Monocytes % (Manual) Nucleated RBC % Seg Neutrophils # Seg Neutrophils # Man Monocytes # (Manual) PT INR Activated Clotting Time POC ABG pH 7.534 H POC ABG pCO2 27.4 L POC ABG pO2 Sodium Potassium Chloride Carbon Dioxide BUN Creatinine Glucose POC Glucose 132 H 129 H Calcium Magnesium Direct Bilirubin AST ALT Alkaline Phosphatase Total Creatine Kinase CK-MB (CK-2) CK-MB (CK-2) Rel Index Troponin T C-Reactive Protein Total Protein Albumin Triglycerides Ur Specific [place] Urine WBC (Auto) Miscellaneous Test 0104/03/17 04/03/17 18:05 00:08 05:09 WBC RBC Hgb Hct MCV MCH Plt Count Lymph % (Auto) [place] % (Auto) Eos % (Auto) Baso % (Auto) Lymph # Baso # Seg Neutrophils % Lymphocytes % (Manual) Monocytes % (Manual) Nucleated RBC % Seg Neutrophils # Seg Neutrophils # Man Monocytes # (Manual) PT INR Activated Clotting Time POC ABG pH 7.455 H POC ABG pCO2 33.2 L POC ABG pO2 120 H Sodium Potassium Chloride Carbon Dioxide BUN Creatinine Glucose POC Glucose 136 H 128 H Calcium Magnesium Direct Bilirubin AST ALT Alkaline Phosphatase Total Creatine Kinase CK-MB (CK-2) CK-MB (CK-2) Rel Index Troponin T C-Reactive Protein Total Protein Albumin Triglycerides Ur Specific [place] Urine WBC (Auto) Miscellaneous Test 04/03/17 04/03/17 04/03/17 06:32 11:54 12:16 WBC 11.9 H RBC Hgb Hct MCV MCH Plt Count 125 L Lymph % (Auto) 4.8 L [place] % (Auto) Eos % (Auto) Baso % (Auto) Lymph # 0.6 L Baso # Seg Neutrophils % 86.7 H Lymphocytes % (Manual) Monocytes % (Manual) Nucleated RBC % Seg Neutrophils # 10.3 H Seg Neutrophils # Man Monocytes # (Manual) PT INR Activated Clotting Time POC ABG pH POC ABG pCO2 POC ABG pO2 Sodium Potassium Chloride Carbon Dioxide BUN Creatinine Glucose POC Glucose 138 H 143 H Calcium Magnesium Direct Bilirubin AST ALT Alkaline Phosphatase Total Creatine Kinase CK-MB (CK-2) CK-MB (CK-2) Rel Index Troponin T C-Reactive Protein Total Protein Albumin Triglycerides Ur Specific [place] Urine WBC (Auto) Miscellaneous Test 04/03/17 04/03/17 04/04/17 17:33 23:59 04:34 WBC RBC Hgb Hct MCV MCH Plt Count Lymph % (Auto) [place] % (Auto) Eos % (Auto) Baso % (Auto) Lymph # Baso # Seg Neutrophils % Lymphocytes % (Manual) Monocytes % (Manual) Nucleated RBC % Seg Neutrophils # Seg Neutrophils # Man Monocytes # (Manual) PT INR Activated Clotting Time POC ABG pH 7.457 H POC ABG pCO2 29.8 L POC ABG pO2 76 L Sodium Potassium Chloride Carbon Dioxide BUN Creatinine Glucose POC Glucose 130 H 155 H Calcium Magnesium Direct Bilirubin AST ALT Alkaline Phosphatase Total Creatine Kinase CK-MB (CK-2) CK-MB (CK-2) Rel Index Troponin T C-Reactive Protein Total Protein Albumin Triglycerides Ur Specific [place] Urine WBC (Auto) Miscellaneous Test 04/04/17 04/04/17 04/04/17 05:27 12:22 18:18 WBC RBC Hgb Hct MCV MCH Plt Count Lymph % (Auto) [place] % (Auto) Eos % (Auto) Baso % (Auto) Lymph # Baso # Seg Neutrophils % Lymphocytes % (Manual) Monocytes % (Manual) Nucleated RBC % Seg Neutrophils # Seg Neutrophils # Man Monocytes # (Manual) PT INR Activated Clotting Time POC ABG pH POC ABG pCO2 POC ABG pO2 Sodium Potassium Chloride Carbon Dioxide BUN Creatinine Glucose POC Glucose 164 H 146 H 130 H Calcium Magnesium Direct Bilirubin AST ALT Alkaline Phosphatase Total Creatine Kinase CK-MB (CK-2) CK-MB (CK-2) Rel Index Troponin T C-Reactive Protein Total Protein Albumin Triglycerides Ur Specific [place] Urine WBC (Auto) Miscellaneous Test 04/05/17 04/05/17 04/05/17 04:43 05:28 11:36 WBC RBC Hgb Hct MCV MCH Plt Count Lymph % (Auto) [place] % (Auto) Eos % (Auto) Baso % (Auto) Lymph # Baso # Seg Neutrophils % Lymphocytes % (Manual) Monocytes % (Manual) Nucleated RBC % Seg Neutrophils # Seg Neutrophils # Man Monocytes # (Manual) PT INR Activated Clotting Time POC ABG pH 7.479 H POC ABG pCO2 33.5 L POC ABG pO2 76 L Sodium Potassium Chloride Carbon Dioxide BUN Creatinine Glucose POC Glucose 145 H 136 H Calcium Magnesium Direct Bilirubin AST ALT Alkaline Phosphatase Total Creatine Kinase CK-MB (CK-2) CK-MB (CK-2) Rel Index Troponin T C-Reactive Protein Total Protein Albumin Triglycerides Ur Specific [place] Urine WBC (Auto) Miscellaneous Test 04/05/17 04/06/17 04/06/17 17:58 00:16 05:26 WBC RBC Hgb Hct MCV MCH Plt Count Lymph % (Auto) [place] % (Auto) Eos % (Auto) Baso % (Auto) Lymph # Baso # Seg Neutrophils % Lymphocytes % (Manual) Monocytes % (Manual) Nucleated RBC % Seg Neutrophils # Seg Neutrophils # Man Monocytes # (Manual) PT INR Activated Clotting Time POC ABG pH POC ABG pCO2 POC ABG pO2 Sodium Potassium Chloride Carbon Dioxide BUN Creatinine Glucose POC Glucose 130 H 159 H 146 H Calcium Magnesium Direct Bilirubin AST ALT Alkaline Phosphatase Total Creatine Kinase CK-MB (CK-2) CK-MB (CK-2) Rel Index Troponin T C-Reactive Protein Total Protein Albumin Triglycerides Ur Specific [place] Urine WBC (Auto) Miscellaneous Test 04/06/17 04/06/17 04/07/17 13:11 16:54 11:45 WBC RBC Hgb Hct MCV MCH Plt Count Lymph % (Auto) [place] % (Auto) Eos % (Auto) Baso % (Auto) Lymph # Baso # Seg Neutrophils % Lymphocytes % (Manual) Monocytes % (Manual) Nucleated RBC % Seg Neutrophils # Seg Neutrophils # Man Monocytes # (Manual) PT INR Activated Clotting Time POC ABG pH 7.517 H POC ABG pCO2 32.1 L POC ABG pO2 Sodium Potassium Chloride Carbon Dioxide BUN Creatinine Glucose POC Glucose 132 H 123 H Calcium Magnesium Direct Bilirubin AST ALT Alkaline Phosphatase Total Creatine Kinase CK-MB (CK-2) CK-MB (CK-2) Rel Index Troponin T C-Reactive Protein Total Protein Albumin Triglycerides Ur Specific [place] Urine WBC (Auto) Miscellaneous Test 04/07/17 04/07/17 04/07/17 12:51 17:40 23:55 WBC RBC Hgb Hct MCV MCH Plt Count Lymph % (Auto) [place] % (Auto) Eos % (Auto) Baso % (Auto) Lymph # Baso # Seg Neutrophils % Lymphocytes % (Manual) Monocytes % (Manual) Nucleated RBC % Seg Neutrophils # Seg Neutrophils # Man Monocytes # (Manual) PT INR Activated Clotting Time POC ABG pH POC ABG pCO2 POC ABG pO2 Sodium Potassium Chloride Carbon Dioxide BUN Creatinine Glucose POC Glucose 138 H 154 H 143 H Calcium Magnesium Direct Bilirubin AST ALT Alkaline Phosphatase Total Creatine Kinase CK-MB (CK-2) CK-MB (CK-2) Rel Index Troponin T C-Reactive Protein Total Protein Albumin Triglycerides Ur Specific [place] Urine WBC (Auto) Miscellaneous Test 04/08/17 04/08/17 04/08/17 05:27 11:14 17:44 WBC RBC Hgb Hct MCV MCH Plt Count Lymph % (Auto) [place] % (Auto) Eos % (Auto) Baso % (Auto) Lymph # Baso # Seg Neutrophils % Lymphocytes % (Manual) Monocytes % (Manual) Nucleated RBC % Seg Neutrophils # Seg Neutrophils # Man Monocytes # (Manual) PT INR Activated Clotting Time POC ABG pH POC ABG pCO2 POC ABG pO2 Sodium Potassium Chloride Carbon Dioxide BUN Creatinine Glucose POC Glucose 142 H 153 H 129 H Calcium Magnesium Direct Bilirubin AST ALT Alkaline Phosphatase Total Creatine Kinase CK-MB (CK-2) CK-MB (CK-2) Rel Index Troponin T C-Reactive Protein Total Protein Albumin Triglycerides Ur Specific [place] Urine WBC (Auto) Miscellaneous Test 04/09/17 04/09/17 04/09/17 08:20 11:21 17:37 WBC RBC Hgb Hct MCV MCH Plt Count Lymph % (Auto) [place] % (Auto) Eos % (Auto) Baso % (Auto) Lymph # Baso # Seg Neutrophils % Lymphocytes % (Manual) Monocytes % (Manual) Nucleated RBC % Seg Neutrophils # Seg Neutrophils # Man Monocytes # (Manual) PT INR Activated Clotting Time POC ABG pH POC ABG pCO2 POC ABG pO2 Sodium 147 H Potassium Chloride 108.8 H Carbon Dioxide BUN 39 H Creatinine 0.5 L Glucose 138 H POC Glucose 152 H 109 H Calcium Magnesium Direct Bilirubin AST ALT Alkaline Phosphatase Total Creatine Kinase CK-MB (CK-2) CK-MB (CK-2) Rel Index Troponin T C-Reactive Protein Total Protein Albumin Triglycerides Ur Specific [place] Urine WBC (Auto) Miscellaneous Test 04/10/17 04/10/17 04/10/17 00:13 04:16 04:16 WBC RBC Hgb 11.5 L Hct MCV 96 H MCH Plt Count 103 L Lymph % (Auto) 11.1 L [place] % (Auto) Eos % (Auto) Baso % (Auto) Lymph # Baso # Seg Neutrophils % 81.5 H Lymphocytes % (Manual) Monocytes % (Manual) Nucleated RBC % Seg Neutrophils # 8.8 H Seg Neutrophils # Man Monocytes # (Manual) PT INR Activated Clotting Time POC ABG pH POC ABG pCO2 POC ABG pO2 Sodium 148 H Potassium Chloride 109.0 H Carbon Dioxide BUN 36 H Creatinine 0.5 L Glucose 131 H POC Glucose 127 H Calcium 8.1 L Magnesium 2.40 H Direct Bilirubin AST 206 H ALT 228 H Alkaline Phosphatase 178 H Total Creatine Kinase CK-MB (CK-2) CK-MB (CK-2) Rel Index Troponin T C-Reactive Protein Total Protein Albumin 2.8 L Triglycerides Ur Specific [place] Urine WBC (Auto) Miscellaneous Test 04/10/17 04/10/17 04/10/17 06:01 11:57 18:27 WBC RBC Hgb Hct MCV MCH Plt Count Lymph % (Auto) [place] % (Auto) Eos % (Auto) Baso % (Auto) Lymph # Baso # Seg Neutrophils % Lymphocytes % (Manual) Monocytes % (Manual) Nucleated RBC % Seg Neutrophils # Seg Neutrophils # Man Monocytes # (Manual) PT INR Activated Clotting Time POC ABG pH POC ABG pCO2 POC ABG pO2 Sodium Potassium Chloride Carbon Dioxide BUN Creatinine Glucose POC Glucose 108 H 154 H 130 H Calcium Magnesium Direct Bilirubin AST ALT Alkaline Phosphatase Total Creatine Kinase CK-MB (CK-2) CK-MB (CK-2) Rel Index Troponin T C-Reactive Protein Total Protein Albumin Triglycerides Ur Specific [place] Urine WBC (Auto) Miscellaneous Test 04/11/17 04/11/17 04/12/17 12:25 17:10 00:22 WBC RBC Hgb Hct MCV MCH Plt Count Lymph % (Auto) [place] % (Auto) Eos % (Auto) Baso % (Auto) Lymph # Baso # Seg Neutrophils % Lymphocytes % (Manual) Monocytes % (Manual) Nucleated RBC % Seg Neutrophils # Seg Neutrophils # Man Monocytes # (Manual) PT INR Activated Clotting Time POC ABG pH POC ABG pCO2 POC ABG pO2 Sodium Potassium Chloride Carbon Dioxide BUN Creatinine Glucose POC Glucose 107 H 129 H 128 H Calcium Magnesium Direct Bilirubin AST ALT Alkaline Phosphatase Total Creatine Kinase CK-MB (CK-2) CK-MB (CK-2) Rel Index Troponin T C-Reactive Protein Total Protein Albumin Triglycerides Ur Specific [place] Urine WBC (Auto) Miscellaneous Test 04/12/17 04/12/17 04/12/17 05:00 11:57 17:47 WBC RBC Hgb Hct MCV MCH Plt Count Lymph % (Auto) [place] % (Auto) Eos % (Auto) Baso % (Auto) Lymph # Baso # Seg Neutrophils % Lymphocytes % (Manual) Monocytes % (Manual) Nucleated RBC % Seg Neutrophils # Seg Neutrophils # Man Monocytes # (Manual) PT INR Activated Clotting Time POC ABG pH POC ABG pCO2 POC ABG pO2 Sodium Potassium Chloride Carbon Dioxide BUN Creatinine Glucose POC Glucose 140 H 142 H Calcium Magnesium Direct Bilirubin AST 158 H ALT 184 H Alkaline Phosphatase 170 H Total Creatine Kinase CK-MB (CK-2) CK-MB (CK-2) Rel Index Troponin T C-Reactive Protein Total Protein Albumin 2.8 L Triglycerides Ur Specific [place] Urine WBC (Auto) Miscellaneous Test 04/12/17 04/12/17 04/13/17 21:36 21:36 01:37 WBC RBC Hgb Hct MCV MCH Plt Count Lymph % (Auto) [place] % (Auto) Eos % (Auto) Baso % (Auto) Lymph # Baso # Seg Neutrophils % Lymphocytes % (Manual) Monocytes % (Manual) Nucleated RBC % Seg Neutrophils # Seg Neutrophils # Man Monocytes # (Manual) PT INR Activated Clotting Time POC ABG pH POC ABG pCO2 POC ABG pO2 Sodium Potassium Chloride Carbon Dioxide BUN Creatinine Glucose POC Glucose 126 H Calcium Magnesium Direct Bilirubin AST ALT Alkaline Phosphatase Total Creatine Kinase 1404 H CK-MB (CK-2) 8.0 H CK-MB (CK-2) Rel Index Troponin T 0.767 H* C-Reactive Protein Total Protein Albumin Triglycerides Ur Specific [place] Urine WBC (Auto) Miscellaneous Test 04/13/17 04/13/17 04/13/17 04:45 04:52 12:17 WBC RBC Hgb Hct MCV MCH Plt Count Lymph % (Auto) [place] % (Auto) Eos % (Auto) Baso % (Auto) Lymph # Baso # Seg Neutrophils % Lymphocytes % (Manual) Monocytes % (Manual) Nucleated RBC % Seg Neutrophils # Seg Neutrophils # Man Monocytes # (Manual) PT INR Activated Clotting Time POC ABG pH POC ABG pCO2 POC ABG pO2 Sodium 148 H Potassium Chloride 112.8 H Carbon Dioxide BUN 33 H Creatinine 0.4 L Glucose 121 H POC Glucose 126 H 149 H Calcium Magnesium Direct Bilirubin AST 160 H ALT 189 H Alkaline Phosphatase 166 H Total Creatine Kinase CK-MB (CK-2) CK-MB (CK-2) Rel Index Troponin T C-Reactive Protein Total Protein Albumin 2.6 L Triglycerides Ur Specific [place] Urine WBC (Auto) Miscellaneous Test 04/13/17 04/14/17 04/14/17 17:45 00:20 00:45 WBC RBC Hgb Hct MCV MCH Plt Count Lymph % (Auto) [place] % (Auto) Eos % (Auto) Baso % (Auto) Lymph # Baso # Seg Neutrophils % Lymphocytes % (Manual) Monocytes % (Manual) Nucleated RBC % Seg Neutrophils # Seg Neutrophils # Man Monocytes # (Manual) PT INR Activated Clotting Time POC ABG pH POC ABG pCO2 POC ABG pO2 Sodium Potassium Chloride Carbon Dioxide BUN Creatinine Glucose POC Glucose 130 H 144 H 144 H Calcium Magnesium Direct Bilirubin AST ALT Alkaline Phosphatase Total Creatine Kinase CK-MB (CK-2) CK-MB (CK-2) Rel Index Troponin T C-Reactive Protein Total Protein Albumin Triglycerides Ur Specific [place] Urine WBC (Auto) Miscellaneous Test 04/14/17 04/14/17 04/14/17 05:40 11:06 11:31 WBC RBC Hgb Hct MCV MCH Plt Count Lymph % (Auto) [place] % (Auto) Eos % (Auto) Baso % (Auto) Lymph # Baso # Seg Neutrophils % Lymphocytes % (Manual) Monocytes % (Manual) Nucleated RBC % Seg Neutrophils # Seg Neutrophils # Man Monocytes # (Manual) PT INR Activated Clotting Time POC ABG pH POC ABG pCO2 POC ABG pO2 Sodium Potassium Chloride Carbon Dioxide BUN Creatinine Glucose POC Glucose 139 H 123 H Calcium Magnesium Direct Bilirubin AST ALT Alkaline Phosphatase Total Creatine Kinase CK-MB (CK-2) CK-MB (CK-2) Rel Index Troponin T C-Reactive Protein Total Protein Albumin Triglycerides Ur Specific [place] 1.033 H Urine WBC (Auto) > 182.0 H Miscellaneous Test 04/14/17 04/14/17 04/15/17 18:00 23:52 05:15 WBC 12.5 H RBC 3.38 L Hgb 10.6 L Hct 32.7 L MCV 97 H MCH Plt Count 107 L Lymph % (Auto) 8.7 L [place] % (Auto) Eos % (Auto) Baso % (Auto) Lymph # 1.1 L Baso # Seg Neutrophils % 86.1 H Lymphocytes % (Manual) Monocytes % (Manual) Nucleated RBC % Seg Neutrophils # 10.7 H Seg Neutrophils # Man Monocytes # (Manual) PT INR Activated Clotting Time POC ABG pH POC ABG pCO2 POC ABG pO2 Sodium Potassium Chloride Carbon Dioxide BUN Creatinine Glucose POC Glucose 133 H 133 H Calcium Magnesium Direct Bilirubin AST ALT Alkaline Phosphatase Total Creatine Kinase CK-MB (CK-2) CK-MB (CK-2) Rel Index Troponin T C-Reactive Protein Total Protein Albumin Triglycerides Ur Specific [place] Urine WBC (Auto) Miscellaneous Test 04/15/17 04/15/17 04/15/17 05:15 05:25 11:50 WBC RBC Hgb Hct MCV MCH Plt Count Lymph % (Auto) [place] % (Auto) Eos % (Auto) Baso % (Auto) Lymph # Baso # Seg Neutrophils % Lymphocytes % (Manual) Monocytes % (Manual) Nucleated RBC % Seg Neutrophils # Seg Neutrophils # Man Monocytes # (Manual) PT INR Activated Clotting Time POC ABG pH POC ABG pCO2 POC ABG pO2 Sodium 149 H Potassium 3.5 L Chloride 114.1 H Carbon Dioxide 21 L BUN 29 H Creatinine 0.4 L Glucose 128 H POC Glucose 133 H 107 H Calcium 8.3 L Magnesium Direct Bilirubin 0.4 H AST 149 H ALT 182 H Alkaline Phosphatase 143 H Total Creatine Kinase CK-MB (CK-2) CK-MB (CK-2) Rel Index Troponin T C-Reactive Protein Total Protein Albumin 2.5 L Triglycerides Ur Specific [place] Urine WBC (Auto) Miscellaneous Test 04/15/17 04/16/17 04/16/17 16:55 00:02 03:17 WBC RBC 3.39 L Hgb 10.5 L Hct 32.4 L MCV 96 H MCH Plt Count 106 L Lymph % (Auto) 6.7 L [place] % (Auto) Eos % (Auto) Baso % (Auto) Lymph # 0.6 L Baso # Seg Neutrophils % 86.8 H Lymphocytes % (Manual) Monocytes % (Manual) Nucleated RBC % Seg Neutrophils # 8.2 H Seg Neutrophils # Man Monocytes # (Manual) PT INR Activated Clotting Time POC ABG pH POC ABG pCO2 POC ABG pO2 Sodium Potassium Chloride Carbon Dioxide BUN Creatinine Glucose POC Glucose 146 H 148 H Calcium Magnesium Direct Bilirubin AST ALT Alkaline Phosphatase Total Creatine Kinase CK-MB (CK-2) CK-MB (CK-2) Rel Index Troponin T C-Reactive Protein Total Protein Albumin Triglycerides Ur Specific [place] Urine WBC (Auto) Miscellaneous Test 04/16/17 04/16/17 04/16/17 03:17 05:19 11:13 WBC RBC Hgb Hct MCV MCH Plt Count Lymph % (Auto) [place] % (Auto) Eos % (Auto) Baso % (Auto) Lymph # Baso # Seg Neutrophils % Lymphocytes % (Manual) Monocytes % (Manual) Nucleated RBC % Seg Neutrophils # Seg Neutrophils # Man Monocytes # (Manual) PT INR Activated Clotting Time POC ABG pH POC ABG pCO2 POC ABG pO2 Sodium 149 H Potassium Chloride 111.1 H Carbon Dioxide 20 L BUN 27 H Creatinine 0.3 L Glucose 156 H POC Glucose 171 H 169 H Calcium 8.3 L Magnesium Direct Bilirubin AST ALT Alkaline Phosphatase Total Creatine Kinase CK-MB (CK-2) CK-MB (CK-2) Rel Index Troponin T C-Reactive Protein Total Protein Albumin Triglycerides Ur Specific [place] Urine WBC (Auto) Miscellaneous Test 04/16/17 04/17/17 04/17/17 17:03 00:00 05:09 WBC RBC Hgb Hct MCV MCH Plt Count Lymph % (Auto) [place] % (Auto) Eos % (Auto) Baso % (Auto) Lymph # Baso # Seg Neutrophils % Lymphocytes % (Manual) Monocytes % (Manual) Nucleated RBC % Seg Neutrophils # Seg Neutrophils # Man Monocytes # (Manual) PT INR Activated Clotting Time POC ABG pH POC ABG pCO2 POC ABG pO2 Sodium Potassium Chloride Carbon Dioxide BUN Creatinine Glucose POC Glucose 151 H 165 H 145 H Calcium Magnesium Direct Bilirubin AST ALT Alkaline Phosphatase Total Creatine Kinase CK-MB (CK-2) CK-MB (CK-2) Rel Index Troponin T C-Reactive Protein Total Protein Albumin Triglycerides Ur Specific [place] Urine WBC (Auto) Miscellaneous Test 04/17/17 04/17/17 04/18/17 11:38 17:47 00:01 WBC RBC Hgb Hct MCV MCH Plt Count Lymph % (Auto) [place] % (Auto) Eos % (Auto) Baso % (Auto) Lymph # Baso # Seg Neutrophils % Lymphocytes % (Manual) Monocytes % (Manual) Nucleated RBC % Seg Neutrophils # Seg Neutrophils # Man Monocytes # (Manual) PT INR Activated Clotting Time POC ABG pH POC ABG pCO2 POC ABG pO2 Sodium Potassium Chloride Carbon Dioxide BUN Creatinine Glucose POC Glucose 170 H 161 H 131 H Calcium Magnesium Direct Bilirubin AST ALT Alkaline Phosphatase Total Creatine Kinase CK-MB (CK-2) CK-MB (CK-2) Rel Index Troponin T C-Reactive Protein Total Protein Albumin Triglycerides Ur Specific [place] Urine WBC (Auto) Miscellaneous Test 04/18/17 04/18/17 04/18/17 03:55 03:55 05:30 WBC RBC 3.05 L Hgb 9.8 L Hct 29.0 L MCV 95 H MCH Plt Count 113 L Lymph % (Auto) [place] % (Auto) Eos % (Auto) 5.3 H Baso % (Auto) Lymph # Baso # Seg Neutrophils % 71.5 H Lymphocytes % (Manual) Monocytes % (Manual) Nucleated RBC % Seg Neutrophils # Seg Neutrophils # Man Monocytes # (Manual) PT INR Activated Clotting Time POC ABG pH 7.460 H POC ABG pCO2 30.8 L POC ABG pO2 129 H Sodium Potassium Chloride Carbon Dioxide 21 L BUN 25 H Creatinine 0.4 L Glucose 123 H POC Glucose Calcium 8.3 L Magnesium Direct Bilirubin AST ALT Alkaline Phosphatase Total Creatine Kinase CK-MB (CK-2) CK-MB (CK-2) Rel Index Troponin T C-Reactive Protein Total Protein Albumin Triglycerides Ur Specific [place] Urine WBC (Auto) Miscellaneous Test 04/18/17 04/18/17 04/19/17 17:10 23:40 04:36 WBC RBC 3.21 L Hgb 10.2 L Hct 30.4 L MCV 95 H MCH Plt Count 131 L Lymph % (Auto) 12.1 L [place] % (Auto) Eos % (Auto) 4.7 H Baso % (Auto) 2.4 H Lymph # 0.9 L Baso # 0.2 H Seg Neutrophils % 75.0 H Lymphocytes % (Manual) Monocytes % (Manual) Nucleated RBC % Seg Neutrophils # Seg Neutrophils # Man Monocytes # (Manual) PT INR Activated Clotting Time POC ABG pH POC ABG pCO2 POC ABG pO2 Sodium Potassium Chloride Carbon Dioxide BUN Creatinine Glucose POC Glucose 135 H 157 H Calcium Magnesium Direct Bilirubin AST ALT Alkaline Phosphatase Total Creatine Kinase CK-MB (CK-2) CK-MB (CK-2) Rel Index Troponin T C-Reactive Protein Total Protein Albumin Triglycerides Ur Specific [place] Urine WBC (Auto) Miscellaneous Test 04/19/17 04/19/17 04/19/17 04:36 05:12 06:50 WBC RBC Hgb Hct MCV MCH Plt Count Lymph % (Auto) [place] % (Auto) Eos % (Auto) Baso % (Auto) Lymph # Baso # Seg Neutrophils % Lymphocytes % (Manual) Monocytes % (Manual) Nucleated RBC % Seg Neutrophils # Seg Neutrophils # Man Monocytes # (Manual) PT INR Activated Clotting Time POC ABG pH 7.516 H POC ABG pCO2 28.0 L POC ABG pO2 Sodium Potassium Chloride Carbon Dioxide 21 L BUN 23 H Creatinine 0.2 L Glucose 137 H POC Glucose 131 H Calcium 7.9 L Magnesium Direct Bilirubin AST ALT Alkaline Phosphatase Total Creatine Kinase CK-MB (CK-2) CK-MB (CK-2) Rel Index Troponin T C-Reactive Protein Total Protein Albumin Triglycerides Ur Specific [place] Urine WBC (Auto) Miscellaneous Test 04/19/17 04/19/17 04/20/17 12:36 17:42 00:12 WBC RBC Hgb Hct MCV MCH Plt Count Lymph % (Auto) [place] % (Auto) Eos % (Auto) Baso % (Auto) Lymph # Baso # Seg Neutrophils % Lymphocytes % (Manual) Monocytes % (Manual) Nucleated RBC % Seg Neutrophils # Seg Neutrophils # Man Monocytes # (Manual) PT INR Activated Clotting Time POC ABG pH POC ABG pCO2 POC ABG pO2 Sodium Potassium Chloride Carbon Dioxide BUN Creatinine Glucose POC Glucose 128 H 140 H 132 H Calcium Magnesium Direct Bilirubin AST ALT Alkaline Phosphatase Total Creatine Kinase CK-MB (CK-2) CK-MB (CK-2) Rel Index Troponin T C-Reactive Protein Total Protein Albumin Triglycerides Ur Specific [place] Urine WBC (Auto) Miscellaneous Test 04/20/17 04/20/17 04/20/17 03:35 03:35 05:10 WBC RBC 3.34 L Hgb 10.4 L Hct 31.6 L MCV 95 H MCH Plt Count Lymph % (Auto) 12.9 L [place] % (Auto) Eos % (Auto) Baso % (Auto) Lymph # Baso # Seg Neutrophils % 77.3 H Lymphocytes % (Manual) Monocytes % (Manual) Nucleated RBC % Seg Neutrophils # Seg Neutrophils # Man Monocytes # (Manual) PT INR Activated Clotting Time POC ABG pH POC ABG pCO2 POC ABG pO2 Sodium Potassium Chloride Carbon Dioxide BUN Creatinine 0.3 L Glucose 155 H POC Glucose 135 H Calcium 7.8 L Magnesium Direct Bilirubin AST ALT Alkaline Phosphatase Total Creatine Kinase CK-MB (CK-2) CK-MB (CK-2) Rel Index Troponin T C-Reactive Protein Total Protein Albumin Triglycerides Ur Specific [place] Urine WBC (Auto) Miscellaneous Test 04/20/17 04/20/17 04/21/17 12:49 18:21 00:05 WBC RBC Hgb Hct MCV MCH Plt Count Lymph % (Auto) [place] % (Auto) Eos % (Auto) Baso % (Auto) Lymph # Baso # Seg Neutrophils % Lymphocytes % (Manual) Monocytes % (Manual) Nucleated RBC % Seg Neutrophils # Seg Neutrophils # Man Monocytes # (Manual) PT INR Activated Clotting Time POC ABG pH POC ABG pCO2 POC ABG pO2 Sodium Potassium Chloride Carbon Dioxide BUN Creatinine Glucose POC Glucose 155 H 165 H 141 H Calcium Magnesium Direct Bilirubin AST ALT Alkaline Phosphatase Total Creatine Kinase CK-MB (CK-2) CK-MB (CK-2) Rel Index Troponin T C-Reactive Protein Total Protein Albumin Triglycerides Ur Specific [place] Urine WBC (Auto) Miscellaneous Test 04/21/17 04/21/17 04/21/17 06:00 12:11 17:04 WBC RBC Hgb Hct MCV MCH Plt Count Lymph % (Auto) [place] % (Auto) Eos % (Auto) Baso % (Auto) Lymph # Baso # Seg Neutrophils % Lymphocytes % (Manual) Monocytes % (Manual) Nucleated RBC % Seg Neutrophils # Seg Neutrophils # Man Monocytes # (Manual) PT INR Activated Clotting Time POC ABG pH POC ABG pCO2 POC ABG pO2 Sodium Potassium Chloride Carbon Dioxide BUN Creatinine Glucose POC Glucose 152 H 165 H 156 H Calcium Magnesium Direct Bilirubin AST ALT Alkaline Phosphatase Total Creatine Kinase CK-MB (CK-2) CK-MB (CK-2) Rel Index Troponin T C-Reactive Protein Total Protein Albumin Triglycerides Ur Specific [place] Urine WBC (Auto) Miscellaneous Test 04/21/17 04/21/17 04/22/17 22:00 23:59 05:49 WBC RBC Hgb Hct MCV MCH Plt Count Lymph % (Auto) [place] % (Auto) Eos % (Auto) Baso % (Auto) Lymph # Baso # Seg Neutrophils % Lymphocytes % (Manual) Monocytes % (Manual) Nucleated RBC % Seg Neutrophils # Seg Neutrophils # Man Monocytes # (Manual) PT INR Activated Clotting Time POC ABG pH POC ABG pCO2 POC ABG pO2 Sodium Potassium Chloride Carbon Dioxide BUN Creatinine Glucose POC Glucose 166 H 173 H Calcium Magnesium Direct Bilirubin AST ALT Alkaline Phosphatase Total Creatine Kinase CK-MB (CK-2) CK-MB (CK-2) Rel Index Troponin T C-Reactive Protein Total Protein Albumin Triglycerides Ur Specific [place] Urine WBC (Auto) 10.0 H Miscellaneous Test 04/22/17 04/22/17 04/23/17 11:11 18:04 00:37 WBC RBC Hgb Hct MCV MCH Plt Count Lymph % (Auto) [place] % (Auto) Eos % (Auto) Baso % (Auto) Lymph # Baso # Seg Neutrophils % Lymphocytes % (Manual) Monocytes % (Manual) Nucleated RBC % Seg Neutrophils # Seg Neutrophils # Man Monocytes # (Manual) PT INR Activated Clotting Time POC ABG pH POC ABG pCO2 POC ABG pO2 Sodium Potassium Chloride Carbon Dioxide BUN Creatinine Glucose POC Glucose 172 H 140 H 135 H Calcium Magnesium Direct Bilirubin AST ALT Alkaline Phosphatase Total Creatine Kinase CK-MB (CK-2) CK-MB (CK-2) Rel Index Troponin T C-Reactive Protein Total Protein Albumin Triglycerides Ur Specific [place] Urine WBC (Auto) Miscellaneous Test 04/23/17 04/23/17 04/23/17 05:33 06:20 11:10 WBC RBC 3.19 L Hgb 9.9 L Hct 30.0 L MCV MCH Plt Count Lymph % (Auto) 8.0 L [place] % (Auto) Eos % (Auto) Baso % (Auto) Lymph # 0.8 L Baso # Seg Neutrophils % 84.5 H Lymphocytes % (Manual) Monocytes % (Manual) Nucleated RBC % Seg Neutrophils # 8.2 H Seg Neutrophils # Man Monocytes # (Manual) PT INR Activated Clotting Time POC ABG pH POC ABG pCO2 POC ABG pO2 Sodium Potassium Chloride Carbon Dioxide BUN Creatinine Glucose POC Glucose 134 H 134 H Calcium Magnesium Direct Bilirubin AST ALT Alkaline Phosphatase Total Creatine Kinase CK-MB (CK-2) CK-MB (CK-2) Rel Index Troponin T C-Reactive Protein Total Protein Albumin Triglycerides Ur Specific [place] Urine WBC (Auto) Miscellaneous Test 04/23/17 04/24/17 04/24/17 17:26 00:53 06:46 WBC RBC Hgb Hct MCV MCH Plt Count Lymph % (Auto) [place] % (Auto) Eos % (Auto) Baso % (Auto) Lymph # Baso # Seg Neutrophils % Lymphocytes % (Manual) Monocytes % (Manual) Nucleated RBC % Seg Neutrophils # Seg Neutrophils # Man Monocytes # (Manual) PT INR Activated Clotting Time POC ABG pH POC ABG pCO2 POC ABG pO2 Sodium Potassium Chloride Carbon Dioxide BUN Creatinine Glucose POC Glucose 164 H 146 H 125 H Calcium Magnesium Direct Bilirubin AST ALT Alkaline Phosphatase Total Creatine Kinase CK-MB (CK-2) CK-MB (CK-2) Rel Index Troponin T C-Reactive Protein Total Protein Albumin Triglycerides Ur Specific [place] Urine WBC (Auto) Miscellaneous Test 04/24/17 04/24/17 04/24/17 11:55 17:50 23:36 WBC RBC Hgb Hct MCV MCH Plt Count Lymph % (Auto) [place] % (Auto) Eos % (Auto) Baso % (Auto) Lymph # Baso # Seg Neutrophils % Lymphocytes % (Manual) Monocytes % (Manual) Nucleated RBC % Seg Neutrophils # Seg Neutrophils # Man Monocytes # (Manual) PT INR Activated Clotting Time POC ABG pH POC ABG pCO2 POC ABG pO2 Sodium Potassium Chloride Carbon Dioxide BUN Creatinine Glucose POC Glucose 156 H 146 H 131 H Calcium Magnesium Direct Bilirubin AST ALT Alkaline Phosphatase Total Creatine Kinase CK-MB (CK-2) CK-MB (CK-2) Rel Index Troponin T C-Reactive Protein Total Protein Albumin Triglycerides Ur Specific [place] Urine WBC (Auto) Miscellaneous Test 04/25/17 04/25/17 04/25/17 04:51 05:16 07:07 WBC RBC Hgb Hct MCV MCH Plt Count Lymph % (Auto) [place] % (Auto) Eos % (Auto) Baso % (Auto) Lymph # Baso # Seg Neutrophils % Lymphocytes % (Manual) Monocytes % (Manual) Nucleated RBC % Seg Neutrophils # Seg Neutrophils # Man Monocytes # (Manual) PT INR Activated Clotting Time POC ABG pH POC ABG pCO2 POC ABG pO2 Sodium Potassium Chloride Carbon Dioxide BUN Creatinine Glucose POC Glucose 139 H Calcium Magnesium Direct Bilirubin AST 105 H ALT 204 H Alkaline Phosphatase 189 H Total Creatine Kinase CK-MB (CK-2) CK-MB (CK-2) Rel Index Troponin T C-Reactive Protein Total Protein Albumin 2.4 L Triglycerides Ur Specific [place] Urine WBC (Auto) Miscellaneous Test Flexitest 1 H 04/25/17 04/25/17 04/25/17 12:29 17:23 23:32 WBC RBC Hgb Hct MCV MCH Plt Count Lymph % (Auto) [place] % (Auto) Eos % (Auto) Baso % (Auto) Lymph # Baso # Seg Neutrophils % Lymphocytes % (Manual) Monocytes % (Manual) Nucleated RBC % Seg Neutrophils # Seg Neutrophils # Man Monocytes # (Manual) PT INR Activated Clotting Time POC ABG pH POC ABG pCO2 POC ABG pO2 Sodium Potassium Chloride Carbon Dioxide BUN Creatinine Glucose POC Glucose 132 H 133 H 128 H Calcium Magnesium Direct Bilirubin AST ALT Alkaline Phosphatase Total Creatine Kinase CK-MB (CK-2) CK-MB (CK-2) Rel Index Troponin T C-Reactive Protein Total Protein Albumin Triglycerides Ur Specific [place] Urine WBC (Auto) Miscellaneous Test 04/26/17 04/26/17 04/26/17 05:24 11:28 17:09 WBC RBC Hgb Hct MCV MCH Plt Count Lymph % (Auto) [place] % (Auto) Eos % (Auto) Baso % (Auto) Lymph # Baso # Seg Neutrophils % Lymphocytes % (Manual) Monocytes % (Manual) Nucleated RBC % Seg Neutrophils # Seg Neutrophils # Man Monocytes # (Manual) PT INR Activated Clotting Time POC ABG pH POC ABG pCO2 POC ABG pO2 Sodium Potassium Chloride Carbon Dioxide BUN Creatinine Glucose POC Glucose 132 H 146 H 141 H Calcium Magnesium Direct Bilirubin AST ALT Alkaline Phosphatase Total Creatine Kinase CK-MB (CK-2) CK-MB (CK-2) Rel Index Troponin T C-Reactive Protein Total Protein Albumin Triglycerides Ur Specific [place] Urine WBC (Auto) Miscellaneous Test 04/26/17 04/27/17 04/27/17 23:52 05:40 05:40 WBC RBC 3.22 L Hgb 10.0 L Hct 29.9 L MCV MCH Plt Count Lymph % (Auto) [place] % (Auto) Eos % (Auto) Baso % (Auto) Lymph # Baso # Seg Neutrophils % 76.6 H Lymphocytes % (Manual) Monocytes % (Manual) Nucleated RBC % Seg Neutrophils # Seg Neutrophils # Man Monocytes # (Manual) PT INR Activated Clotting Time POC ABG pH POC ABG pCO2 POC ABG pO2 Sodium Potassium Chloride Carbon Dioxide BUN Creatinine Glucose POC Glucose 140 H Calcium Magnesium Direct Bilirubin AST 66 H ALT 137 H Alkaline Phosphatase 169 H Total Creatine Kinase CK-MB (CK-2) CK-MB (CK-2) Rel Index Troponin T C-Reactive Protein Total Protein 6.2 L Albumin 2.6 L Triglycerides Ur Specific [place] Urine WBC (Auto) Miscellaneous Test 04/27/17 04/27/17 04/27/17 05:40 06:10 11:13 WBC RBC Hgb Hct MCV MCH Plt Count Lymph % (Auto) [place] % (Auto) Eos % (Auto) Baso % (Auto) Lymph # Baso # Seg Neutrophils % Lymphocytes % (Manual) Monocytes % (Manual) Nucleated RBC % Seg Neutrophils # Seg Neutrophils # Man Monocytes # (Manual) PT INR Activated Clotting Time POC ABG pH POC ABG pCO2 POC ABG pO2 Sodium Potassium Chloride Carbon Dioxide BUN Creatinine 0.2 L Glucose 139 H POC Glucose 130 H 151 H Calcium Magnesium Direct Bilirubin AST ALT Alkaline Phosphatase Total Creatine Kinase CK-MB (CK-2) CK-MB (CK-2) Rel Index Troponin T C-Reactive Protein Total Protein Albumin Triglycerides Ur Specific [place] Urine WBC (Auto) Miscellaneous Test 04/27/17 04/27/17 04/28/17 17:37 23:19 05:24 WBC RBC Hgb Hct MCV MCH Plt Count Lymph % (Auto) [place] % (Auto) Eos % (Auto) Baso % (Auto) Lymph # Baso # Seg Neutrophils % Lymphocytes % (Manual) Monocytes % (Manual) Nucleated RBC % Seg Neutrophils # Seg Neutrophils # Man Monocytes # (Manual) PT INR Activated Clotting Time POC ABG pH POC ABG pCO2 POC ABG pO2 Sodium Potassium Chloride Carbon Dioxide BUN Creatinine Glucose POC Glucose 159 H 130 H 132 H Calcium Magnesium Direct Bilirubin AST ALT Alkaline Phosphatase Total Creatine Kinase CK-MB (CK-2) CK-MB (CK-2) Rel Index Troponin T C-Reactive Protein Total Protein Albumin Triglycerides Ur Specific [place] Urine WBC (Auto) Miscellaneous Test 04/28/17 04/28/17 04/28/17 11:15 17:38 23:23 WBC RBC Hgb Hct MCV MCH Plt Count Lymph % (Auto) [place] % (Auto) Eos % (Auto) Baso % (Auto) Lymph # Baso # Seg Neutrophils % Lymphocytes % (Manual) Monocytes % (Manual) Nucleated RBC % Seg Neutrophils # Seg Neutrophils # Man Monocytes # (Manual) PT INR Activated Clotting Time POC ABG pH POC ABG pCO2 POC ABG pO2 Sodium Potassium Chloride Carbon Dioxide BUN Creatinine Glucose POC Glucose 162 H 133 H 138 H Calcium Magnesium Direct Bilirubin AST ALT Alkaline Phosphatase Total Creatine Kinase CK-MB (CK-2) CK-MB (CK-2) Rel Index Troponin T C-Reactive Protein Total Protein Albumin Triglycerides Ur Specific [place] Urine WBC (Auto) Miscellaneous Test 04/29/17 04/29/17 04/29/17 05:15 12:55 17:21 WBC RBC Hgb Hct MCV MCH Plt Count Lymph % (Auto) [place] % (Auto) Eos % (Auto) Baso % (Auto) Lymph # Baso # Seg Neutrophils % Lymphocytes % (Manual) Monocytes % (Manual) Nucleated RBC % Seg Neutrophils # Seg Neutrophils # Man Monocytes # (Manual) PT INR Activated Clotting Time POC ABG pH POC ABG pCO2 POC ABG pO2 Sodium Potassium Chloride Carbon Dioxide BUN Creatinine Glucose POC Glucose 135 H 127 H 138 H Calcium Magnesium Direct Bilirubin AST ALT Alkaline Phosphatase Total Creatine Kinase CK-MB (CK-2) CK-MB (CK-2) Rel Index Troponin T C-Reactive Protein Total Protein Albumin Triglycerides Ur Specific [place] Urine WBC (Auto) Miscellaneous Test 04/29/17 04/30/17 04/30/17 23:52 04:55 12:22 WBC RBC Hgb Hct MCV MCH Plt Count Lymph % (Auto) [place] % (Auto) Eos % (Auto) Baso % (Auto) Lymph # Baso # Seg Neutrophils % Lymphocytes % (Manual) Monocytes % (Manual) Nucleated RBC % Seg Neutrophils # Seg Neutrophils # Man Monocytes # (Manual) PT INR Activated Clotting Time POC ABG pH POC ABG pCO2 POC ABG pO2 Sodium Potassium Chloride Carbon Dioxide BUN Creatinine Glucose POC Glucose 142 H 146 H 132 H Calcium Magnesium Direct Bilirubin AST ALT Alkaline Phosphatase Total Creatine Kinase CK-MB (CK-2) CK-MB (CK-2) Rel Index Troponin T C-Reactive Protein Total Protein Albumin Triglycerides Ur Specific [place] Urine WBC (Auto) Miscellaneous Test 04/30/17 04/30/17 04/30/17 14:25 17:47 18:20 WBC RBC Hgb Hct MCV MCH Plt Count Lymph % (Auto) [place] % (Auto) Eos % (Auto) Baso % (Auto) Lymph # Baso # Seg Neutrophils % Lymphocytes % (Manual) Monocytes % (Manual) Nucleated RBC % Seg Neutrophils # Seg Neutrophils # Man Monocytes # (Manual) PT INR Activated Clotting Time POC ABG pH 7.551 H POC ABG pCO2 32.7 L POC ABG pO2 Sodium Potassium Chloride Carbon Dioxide BUN 21 H Creatinine 0.2 L Glucose 141 H POC Glucose 139 H Calcium Magnesium Direct Bilirubin AST ALT Alkaline Phosphatase Total Creatine Kinase CK-MB (CK-2) CK-MB (CK-2) Rel Index Troponin T C-Reactive Protein Total Protein Albumin Triglycerides Ur Specific [place] Urine WBC (Auto) Miscellaneous Test 05/01/17 05/01/17 05/01/17 01:26 05:30 05:30 WBC RBC 3.49 L Hgb 10.3 L Hct 31.9 L MCV MCH Plt Count Lymph % (Auto) [place] % (Auto) 8.1 H Eos % (Auto) Baso % (Auto) Lymph # Baso # Seg Neutrophils % 71.3 H Lymphocytes % (Manual) Monocytes % (Manual) Nucleated RBC % Seg Neutrophils # Seg Neutrophils # Man Monocytes # (Manual) PT INR Activated Clotting Time POC ABG pH POC ABG pCO2 POC ABG pO2 Sodium 136 L Potassium Chloride 97.6 L Carbon Dioxide BUN Creatinine 0.2 L Glucose 123 H POC Glucose 116 H Calcium Magnesium Direct Bilirubin AST 71 H ALT 125 H Alkaline Phosphatase 158 H Total Creatine Kinase CK-MB (CK-2) CK-MB (CK-2) Rel Index Troponin T C-Reactive Protein Total Protein Albumin 2.6 L Triglycerides Ur Specific [place] Urine WBC (Auto) Miscellaneous Test 05/01/17 05/01/17 05/02/17 11:59 17:23 00:08 WBC RBC Hgb Hct MCV MCH Plt Count Lymph % (Auto) [place] % (Auto) Eos % (Auto) Baso % (Auto) Lymph # Baso # Seg Neutrophils % Lymphocytes % (Manual) Monocytes % (Manual) Nucleated RBC % Seg Neutrophils # Seg Neutrophils # Man Monocytes # (Manual) PT INR Activated Clotting Time POC ABG pH POC ABG pCO2 POC ABG pO2 Sodium Potassium Chloride Carbon Dioxide BUN Creatinine Glucose POC Glucose 118 H 144 H 122 H Calcium Magnesium Direct Bilirubin AST ALT Alkaline Phosphatase Total Creatine Kinase CK-MB (CK-2) CK-MB (CK-2) Rel Index Troponin T C-Reactive Protein Total Protein Albumin Triglycerides Ur Specific [place] Urine WBC (Auto) Miscellaneous Test 05/02/17 05/02/17 05/02/17 05:50 11:21 17:48 WBC RBC Hgb Hct MCV MCH Plt Count Lymph % (Auto) [place] % (Auto) Eos % (Auto) Baso % (Auto) Lymph # Baso # Seg Neutrophils % Lymphocytes % (Manual) Monocytes % (Manual) Nucleated RBC % Seg Neutrophils # Seg Neutrophils # Man Monocytes # (Manual) PT INR Activated Clotting Time POC ABG pH POC ABG pCO2 POC ABG pO2 Sodium Potassium Chloride Carbon Dioxide BUN Creatinine Glucose POC Glucose 120 H 121 H 140 H Calcium Magnesium Direct Bilirubin AST ALT Alkaline Phosphatase Total Creatine Kinase CK-MB (CK-2) CK-MB (CK-2) Rel Index Troponin T C-Reactive Protein Total Protein Albumin Triglycerides Ur Specific [place] Urine WBC (Auto) Miscellaneous Test 05/02/17 05/03/17 05/03/17 23:12 05:35 11:52 WBC RBC Hgb Hct MCV MCH Plt Count Lymph % (Auto) [place] % (Auto) Eos % (Auto) Baso % (Auto) Lymph # Baso # Seg Neutrophils % Lymphocytes % (Manual) Monocytes % (Manual) Nucleated RBC % Seg Neutrophils # Seg Neutrophils # Man Monocytes # (Manual) PT INR Activated Clotting Time POC ABG pH POC ABG pCO2 POC ABG pO2 Sodium Potassium Chloride Carbon Dioxide BUN Creatinine Glucose POC Glucose 128 H 113 H 126 H Calcium Magnesium Direct Bilirubin AST ALT Alkaline Phosphatase Total Creatine Kinase CK-MB (CK-2) CK-MB (CK-2) Rel Index Troponin T C-Reactive Protein Total Protein Albumin Triglycerides Ur Specific [place] Urine WBC (Auto) Miscellaneous Test 05/03/17 05/03/17 05/04/17 17:29 23:26 04:55 WBC RBC Hgb Hct MCV MCH Plt Count Lymph % (Auto) [place] % (Auto) Eos % (Auto) Baso % (Auto) Lymph # Baso # Seg Neutrophils % Lymphocytes % (Manual) Monocytes % (Manual) Nucleated RBC % Seg Neutrophils # Seg Neutrophils # Man Monocytes # (Manual) PT INR Activated Clotting Time POC ABG pH POC ABG pCO2 POC ABG pO2 Sodium Potassium Chloride Carbon Dioxide BUN Creatinine Glucose POC Glucose 141 H 129 H 126 H Calcium Magnesium Direct Bilirubin AST ALT Alkaline Phosphatase Total Creatine Kinase CK-MB (CK-2) CK-MB (CK-2) Rel Index Troponin T C-Reactive Protein Total Protein Albumin Triglycerides Ur Specific [place] Urine WBC (Auto) Miscellaneous Test 05/04/17 05/04/17 05/05/17 12:09 17:46 00:06 WBC RBC Hgb Hct MCV MCH Plt Count Lymph % (Auto) [place] % (Auto) Eos % (Auto) Baso % (Auto) Lymph # Baso # Seg Neutrophils % Lymphocytes % (Manual) Monocytes % (Manual) Nucleated RBC % Seg Neutrophils # Seg Neutrophils # Man Monocytes # (Manual) PT INR Activated Clotting Time POC ABG pH POC ABG pCO2 POC ABG pO2 Sodium Potassium Chloride Carbon Dioxide BUN Creatinine Glucose POC Glucose 125 H 125 H 110 H Calcium Magnesium Direct Bilirubin AST ALT Alkaline Phosphatase Total Creatine Kinase CK-MB (CK-2) CK-MB (CK-2) Rel Index Troponin T C-Reactive Protein Total Protein Albumin Triglycerides Ur Specific [place] Urine WBC (Auto) Miscellaneous Test 05/05/17 05/05/17 05/05/17 05:48 11:41 16:19 WBC RBC Hgb Hct MCV MCH Plt Count Lymph % (Auto) [place] % (Auto) Eos % (Auto) Baso % (Auto) Lymph # Baso # Seg Neutrophils % Lymphocytes % (Manual) Monocytes % (Manual) Nucleated RBC % Seg Neutrophils # Seg Neutrophils # Man Monocytes # (Manual) PT INR Activated Clotting Time POC ABG pH POC ABG pCO2 POC ABG pO2 Sodium Potassium Chloride Carbon Dioxide BUN Creatinine Glucose POC Glucose 124 H 122 H 120 H Calcium Magnesium Direct Bilirubin AST ALT Alkaline Phosphatase Total Creatine Kinase CK-MB (CK-2) CK-MB (CK-2) Rel Index Troponin T C-Reactive Protein Total Protein Albumin Triglycerides Ur Specific [place] Urine WBC (Auto) Miscellaneous Test 05/06/17 05/06/17 05/06/17 00:16 05:47 11:42 WBC RBC Hgb Hct MCV MCH Plt Count Lymph % (Auto) [place] % (Auto) Eos % (Auto) Baso % (Auto) Lymph # Baso # Seg Neutrophils % Lymphocytes % (Manual) Monocytes % (Manual) Nucleated RBC % Seg Neutrophils # Seg Neutrophils # Man Monocytes # (Manual) PT INR Activated Clotting Time POC ABG pH POC ABG pCO2 POC ABG pO2 Sodium Potassium Chloride Carbon Dioxide BUN Creatinine Glucose POC Glucose 110 H 142 H 120 H Calcium Magnesium Direct Bilirubin AST ALT Alkaline Phosphatase Total Creatine Kinase CK-MB (CK-2) CK-MB (CK-2) Rel Index Troponin T C-Reactive Protein Total Protein Albumin Triglycerides Ur Specific [place] Urine WBC (Auto) Miscellaneous Test 05/06/17 05/07/17 05/07/17 17:46 00:07 05:28 WBC RBC Hgb Hct MCV MCH Plt Count Lymph % (Auto) [place] % (Auto) Eos % (Auto) Baso % (Auto) Lymph # Baso # Seg Neutrophils % Lymphocytes % (Manual) Monocytes % (Manual) Nucleated RBC % Seg Neutrophils # Seg Neutrophils # Man Monocytes # (Manual) PT INR Activated Clotting Time POC ABG pH POC ABG pCO2 POC ABG pO2 Sodium Potassium Chloride Carbon Dioxide BUN Creatinine Glucose POC Glucose 127 H 145 H 124 H Calcium Magnesium Direct Bilirubin AST ALT Alkaline Phosphatase Total Creatine Kinase CK-MB (CK-2) CK-MB (CK-2) Rel Index Troponin T C-Reactive Protein Total Protein Albumin Triglycerides Ur Specific [place] Urine WBC (Auto) Miscellaneous Test 05/07/17 05/07/17 05/08/17 11:17 17:14 00:03 WBC RBC Hgb Hct MCV MCH Plt Count Lymph % (Auto) [place] % (Auto) Eos % (Auto) Baso % (Auto) Lymph # Baso # Seg Neutrophils % Lymphocytes % (Manual) Monocytes % (Manual) Nucleated RBC % Seg Neutrophils # Seg Neutrophils # Man Monocytes # (Manual) PT INR Activated Clotting Time POC ABG pH POC ABG pCO2 POC ABG pO2 Sodium Potassium Chloride Carbon Dioxide BUN Creatinine Glucose POC Glucose 144 H 125 H 122 H Calcium Magnesium Direct Bilirubin AST ALT Alkaline Phosphatase Total Creatine Kinase CK-MB (CK-2) CK-MB (CK-2) Rel Index Troponin T C-Reactive Protein Total Protein Albumin Triglycerides Ur Specific [place] Urine WBC (Auto) Miscellaneous Test 05/08/17 05/08/17 05/08/17 05:43 12:07 18:02 WBC RBC Hgb Hct MCV MCH Plt Count Lymph % (Auto) [place] % (Auto) Eos % (Auto) Baso % (Auto) Lymph # Baso # Seg Neutrophils % Lymphocytes % (Manual) Monocytes % (Manual) Nucleated RBC % Seg Neutrophils # Seg Neutrophils # Man Monocytes # (Manual) PT INR Activated Clotting Time POC ABG pH POC ABG pCO2 POC ABG pO2 Sodium Potassium Chloride Carbon Dioxide BUN Creatinine Glucose POC Glucose 117 H 114 H 129 H Calcium Magnesium Direct Bilirubin AST ALT Alkaline Phosphatase Total Creatine Kinase CK-MB (CK-2) CK-MB (CK-2) Rel Index Troponin T C-Reactive Protein Total Protein Albumin Triglycerides Ur Specific [place] Urine WBC (Auto) Miscellaneous Test 05/08/17 05/09/17 23:53 05:14 WBC RBC Hgb Hct MCV MCH Plt Count Lymph % (Auto) [place] % (Auto) Eos % (Auto) Baso % (Auto) Lymph # Baso # Seg Neutrophils % Lymphocytes % (Manual) Monocytes % (Manual) Nucleated RBC % Seg Neutrophils # Seg Neutrophils # Man Monocytes # (Manual) PT INR Activated Clotting Time POC ABG pH POC ABG pCO2 POC ABG pO2 Sodium Potassium Chloride Carbon Dioxide BUN Creatinine Glucose POC Glucose 125 H 118 H Calcium Magnesium Direct Bilirubin AST ALT Alkaline Phosphatase Total Creatine Kinase CK-MB (CK-2) CK-MB (CK-2) Rel Index Troponin T C-Reactive Protein Total Protein Albumin Triglycerides Ur Specific [place] Urine WBC (Auto) Miscellaneous Test
--- NOTE | 2017-05-10 09:26 | Progress Note ---
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 1. Will attempt T-piece today. 2. Once tolerates T-piece for 24 hours, can consider transfer to floor 3. reviewed neurology note and agree with assessment 4. Continue all other cardiac meds 5. Overall prognosis still remains poor given amount of downtime during arrest. 6. Still need to have family meeting with neurology present to explain current findings. Patient should at least be a DNR if family wants to continue aggressive care. Given his current cardiac issues and mental state, coding him would not improve any outcomes. CCT 31 minutes. Subjective Date of service: 05/10/17 Principal diagnosis: coma,ARV,s/p arrest Interval history: Patient continues to tolerate PSV 10/. Stable. No family at bedside. Mental state is unchanged. Objective Vital Signs - 12hr 05/09/17 05/09/17 05/09/17 21:30 22:00 22:30 Temperature Pulse Rate 87 95 H 89 Pulse Rate [ From Monitor] Respiratory 25 H 21 22 Rate Blood Pressure 100/66 109/67 90/54 O2 Sat by Pulse 97 97 96 Oximetry O2 Sat by Pulse Oximetry [ Assessment] 05/09/17 05/09/17 05/09/17 22:46 23:00 23:18 Temperature Pulse Rate 89 87 Pulse Rate [ From Monitor] Respiratory 19 25 H Rate Blood Pressure 90/54 96/54 O2 Sat by Pulse 96 97 100 Oximetry O2 Sat by Pulse Oximetry [ Assessment] 05/09/17 05/09/17 05/10/17 23:30 23:56 00:00 Temperature 97.3 F L Pulse Rate 93 H 92 H 91 H Pulse Rate [ From Monitor] Respiratory 20 16 Rate Blood Pressure 102/58 102/58 85/53 O2 Sat by Pulse 97 96 96 Oximetry O2 Sat by Pulse 98 Oximetry [ Assessment] 05/10/17 05/10/17 05/10/17 00:30 01:00 01:30 Temperature Pulse Rate 90 86 79 Pulse Rate [ From Monitor] Respiratory 21 22 16 Rate Blood Pressure 97/61 83/50 93/59 O2 Sat by Pulse 98 97 99 Oximetry O2 Sat by Pulse Oximetry [ Assessment] 05/10/17 05/10/17 05/10/17 02:00 02:30 03:00 Temperature Pulse Rate 99 H 90 86 Pulse Rate [ From Monitor] Respiratory 18 19 16 Rate Blood Pressure 93/59 99/63 94/60 O2 Sat by Pulse 100 Oximetry O2 Sat by Pulse Oximetry [ Assessment] 05/10/17 05/10/17 05/10/17 03:30 04:00 04:30 Temperature Pulse Rate 87 83 85 Pulse Rate [ From Monitor] Respiratory 19 19 15 Rate Blood Pressure 94/59 94/56 90/59 O2 Sat by Pulse 100 94 Oximetry O2 Sat by Pulse Oximetry [ Assessment] 05/10/17 05/10/17 05/10/17 04:54 05:00 05:30 Temperature Pulse Rate 84 87 87 Pulse Rate [ From Monitor] Respiratory 20 21 Rate Blood Pressure 90/59 95/55 92/52 O2 Sat by Pulse 94 90 91 Oximetry O2 Sat by Pulse 94 Oximetry [ Assessment] 05/10/17 05/10/17 05/10/17 06:00 06:15 06:30 Temperature Pulse Rate 88 88 Pulse Rate [ From Monitor] Respiratory 19 19 17 Rate Blood Pressure 92/50 92/51 O2 Sat by Pulse 89 95 88 Oximetry O2 Sat by Pulse Oximetry [ Assessment] 05/10/17 05/10/17 05/10/17 07:00 07:22 07:28 Temperature Pulse Rate 90 91 H Pulse Rate [ From Monitor] Respiratory 18 Rate Blood Pressure 98/54 98/54 O2 Sat by Pulse 89 Oximetry O2 Sat by Pulse 88 Oximetry [ Assessment] 05/10/17 05/10/17 05/10/17 07:30 07:51 07:52 Temperature 98.1 F Pulse Rate 90 Pulse Rate [ 90 From Monitor] Respiratory 15 21 Rate Blood Pressure 104/63 O2 Sat by Pulse 89 99 Oximetry O2 Sat by Pulse Oximetry [ Assessment] Constitutional: no acute distress, comatose Eyes: non-icteric ENT: oropharynx moist Neck: supple, no JVD, other (tracheotomy ) Effort: normal Ascultation: Bilateral: clear, diminished breath sounds Percussion: Bilateral: not dull Cardiovascular: regular rate and rhythm Gastrointestinal: normoactive bowel sounds, soft, non-tender, non-distended Integumentary: normal Extremities: no cyanosis, no edema, pink and warm Neurologic: unable to assess Psychiatric: other (eyes open spontaneously but does not follow any voice commands, otherwise nonresponsive except for pain) CBC and BMP: 05/01/17 05:30 05/01/17 05:30 ABG, PT/INR, D-dimer: ABG POC ABG pH 7.524 (7.35-7.45) H 05/09/17 04:19 POC ABG pCO2 34.7 (35-45) L 05/09/17 04:19 POC ABG pO2 107 (80-105) H 05/09/17 04:19 POC ABG HCO3 28.6 05/09/17 04:19 POC ABG Total CO2 30 05/09/17 04:19 POC ABG O2 Sat 99 05/09/17 04:19 PT/INR, D-dimer PT 14.9 Sec. (12.2-14.9) 04/10/17 04:16 INR 1.11 (0.87-1.13) 04/10/17 04:16 Abnormal lab findings: Abnormal Labs 03/29/17 03/29/17 03/29/17 11:35 11:35 11:40 WBC RBC Hgb Hct MCV 98 H MCH 33 H Plt Count Lymph % (Auto) Johnson % (Auto) Eos % (Auto) Baso % (Auto) Lymph # Baso # Seg Neutrophils % Lymphocytes % (Manual) Monocytes % (Manual) 9.0 H Nucleated RBC % 1.0 H Seg Neutrophils # Seg Neutrophils # Man Monocytes # (Manual) 0.9 H PT 15.8 H INR 1.20 H Activated Clotting Time POC ABG pH POC ABG pCO2 POC ABG pO2 Sodium Potassium 2.7 L* Chloride 95.3 L Carbon Dioxide 17 L BUN Creatinine Glucose 435 H POC Glucose Calcium Magnesium Direct Bilirubin AST ALT Alkaline Phosphatase Total Creatine Kinase CK-MB (CK-2) CK-MB (CK-2) Rel Index Troponin T C-Reactive Protein Total Protein 6.1 L Albumin 3.5 L Triglycerides Ur Specific [place] Urine WBC (Auto) Miscellaneous Test 03/29/17 03/29/17 03/29/17 12:34 13:10 13:25 WBC RBC Hgb Hct MCV MCH Plt Count Lymph % (Auto) Johnson % (Auto) Eos % (Auto) Baso % (Auto) Lymph # Baso # Seg Neutrophils % Lymphocytes % (Manual) Monocytes % (Manual) Nucleated RBC % Seg Neutrophils # Seg Neutrophils # Man Monocytes # (Manual) PT INR Activated Clotting Time 142 H 169 H 175 H POC ABG pH POC ABG pCO2 POC ABG pO2 Sodium Potassium Chloride Carbon Dioxide BUN Creatinine Glucose POC Glucose Calcium Magnesium Direct Bilirubin AST ALT Alkaline Phosphatase Total Creatine Kinase CK-MB (CK-2) CK-MB (CK-2) Rel Index Troponin T C-Reactive Protein Total Protein Albumin Triglycerides Ur Specific [place] Urine WBC (Auto) Miscellaneous Test 03/29/17 03/29/17 03/29/17 14:50 15:18 19:52 WBC RBC Hgb Hct MCV MCH Plt Count Lymph % (Auto) [place] % (Auto) Eos % (Auto) Baso % (Auto) Lymph # Baso # Seg Neutrophils % Lymphocytes % (Manual) Monocytes % (Manual) Nucleated RBC % Seg Neutrophils # Seg Neutrophils # Man Monocytes # (Manual) PT INR Activated Clotting Time 175 H POC ABG pH 7.293 L POC ABG pCO2 POC ABG pO2 602 H Sodium Potassium Chloride Carbon Dioxide BUN Creatinine Glucose POC Glucose Calcium Magnesium Direct Bilirubin AST ALT Alkaline Phosphatase Total Creatine Kinase 7263 H CK-MB (CK-2) > 300.0 H CK-MB (CK-2) Rel Index 4.1 H Troponin T 8.080 H* D C-Reactive Protein Total Protein Albumin Triglycerides 195 H Ur Specific [place] Urine WBC (Auto) Miscellaneous Test 03/30/17 03/30/17 03/30/17 03:50 03:50 06:19 WBC 19.5 H RBC Hgb Hct MCV MCH Plt Count Lymph % (Auto) Johnson % (Auto) Eos % (Auto) Baso % (Auto) Lymph # Baso # Seg Neutrophils % Lymphocytes % (Manual) 7.0 L Monocytes % (Manual) Nucleated RBC % Seg Neutrophils # Seg Neutrophils # Man 12.7 H Monocytes # (Manual) 1.4 H PT INR Activated Clotting Time POC ABG pH POC ABG pCO2 28.2 L POC ABG pO2 108 H Sodium Potassium Chloride 108.9 H Carbon Dioxide 15 L BUN 25 H Creatinine Glucose 158 H POC Glucose Calcium 8.1 L Magnesium Direct Bilirubin AST ALT Alkaline Phosphatase Total Creatine Kinase 7963 H CK-MB (CK-2) > 300.0 H CK-MB (CK-2) Rel Index Troponin T 6.850 H* C-Reactive Protein Total Protein Albumin Triglycerides Ur Specific [place] Urine WBC (Auto) Miscellaneous Test 03/30/17 03/30/17 03/31/17 09:45 16:04 02:19 WBC RBC Hgb Hct MCV MCH Plt Count Lymph % (Auto) [place] % (Auto) Eos % (Auto) Baso % (Auto) Lymph # Baso # Seg Neutrophils % Lymphocytes % (Manual) Monocytes % (Manual) Nucleated RBC % Seg Neutrophils # Seg Neutrophils # Man Monocytes # (Manual) PT INR Activated Clotting Time POC ABG pH POC ABG pCO2 POC ABG pO2 Sodium Potassium Chloride Carbon Dioxide BUN Creatinine Glucose POC Glucose 137 H Calcium Magnesium Direct Bilirubin AST ALT Alkaline Phosphatase Total Creatine Kinase CK-MB (CK-2) CK-MB (CK-2) Rel Index Troponin T C-Reactive Protein 21.80 H Total Protein Albumin Triglycerides Ur Specific [place] 1.031 H Urine WBC (Auto) Miscellaneous Test 03/31/17 03/31/17 03/31/17 03:57 06:54 09:22 WBC RBC Hgb Hct MCV MCH Plt Count Lymph % (Auto) [place] % (Auto) Eos % (Auto) Baso % (Auto) Lymph # Baso # Seg Neutrophils % Lymphocytes % (Manual) Monocytes % (Manual) Nucleated RBC % Seg Neutrophils # Seg Neutrophils # Man Monocytes # (Manual) PT INR Activated Clotting Time POC ABG pH 7.475 H POC ABG pCO2 25.4 L POC ABG pO2 62 L Sodium Potassium Chloride Carbon Dioxide 19 L BUN 22 H Creatinine 0.6 L Glucose 148 H POC Glucose 143 H Calcium 8.3 L Magnesium Direct Bilirubin AST ALT Alkaline Phosphatase Total Creatine Kinase CK-MB (CK-2) CK-MB (CK-2) Rel Index Troponin T C-Reactive Protein Total Protein Albumin Triglycerides Ur Specific [place] Urine WBC (Auto) Miscellaneous Test 03/31/17 03/31/17 03/31/17 11:40 17:47 23:38 WBC RBC Hgb Hct MCV MCH Plt Count Lymph % (Auto) [place] % (Auto) Eos % (Auto) Baso % (Auto) Lymph # Baso # Seg Neutrophils % Lymphocytes % (Manual) Monocytes % (Manual) Nucleated RBC % Seg Neutrophils # Seg Neutrophils # Man Monocytes # (Manual) PT INR Activated Clotting Time POC ABG pH POC ABG pCO2 POC ABG pO2 Sodium Potassium Chloride Carbon Dioxide BUN Creatinine Glucose POC Glucose 127 H 137 H 148 H Calcium Magnesium Direct Bilirubin AST ALT Alkaline Phosphatase Total Creatine Kinase CK-MB (CK-2) CK-MB (CK-2) Rel Index Troponin T C-Reactive Protein Total Protein Albumin Triglycerides Ur Specific [place] Urine WBC (Auto) Miscellaneous Test 04/01/17 04/01/17 04/01/17 04:29 05:01 11:54 WBC RBC Hgb Hct MCV MCH Plt Count Lymph % (Auto) [place] % (Auto) Eos % (Auto) Baso % (Auto) Lymph # Baso # Seg Neutrophils % Lymphocytes % (Manual) Monocytes % (Manual) Nucleated RBC % Seg Neutrophils # Seg Neutrophils # Man Monocytes # (Manual) PT INR Activated Clotting Time POC ABG pH 7.513 H POC ABG pCO2 22.1 L POC ABG pO2 64 L Sodium Potassium Chloride Carbon Dioxide BUN Creatinine Glucose POC Glucose 121 H Calcium Magnesium Direct Bilirubin AST ALT Alkaline Phosphatase Total Creatine Kinase CK-MB (CK-2) CK-MB (CK-2) Rel Index Troponin T C-Reactive Protein Total Protein Albumin Triglycerides 151 H Ur Specific [place] Urine WBC (Auto) Miscellaneous Test 04/01/17 04/02/17 04/02/17 18:17 00:11 04:52 WBC RBC Hgb Hct MCV MCH Plt Count Lymph % (Auto) [place] % (Auto) Eos % (Auto) Baso % (Auto) Lymph # Baso # Seg Neutrophils % Lymphocytes % (Manual) Monocytes % (Manual) Nucleated RBC % Seg Neutrophils # Seg Neutrophils # Man Monocytes # (Manual) PT INR Activated Clotting Time POC ABG pH 7.524 H POC ABG pCO2 25.5 L POC ABG pO2 66 L Sodium Potassium Chloride Carbon Dioxide BUN Creatinine Glucose POC Glucose 117 H 122 H Calcium Magnesium Direct Bilirubin AST ALT Alkaline Phosphatase Total Creatine Kinase CK-MB (CK-2) CK-MB (CK-2) Rel Index Troponin T C-Reactive Protein Total Protein Albumin Triglycerides Ur Specific [place] Urine WBC (Auto) Miscellaneous Test 04/02/17 04/02/17 04/02/17 05:18 10:41 12:19 WBC RBC Hgb Hct MCV MCH Plt Count Lymph % (Auto) [place] % (Auto) Eos % (Auto) Baso % (Auto) Lymph # Baso # Seg Neutrophils % Lymphocytes % (Manual) Monocytes % (Manual) Nucleated RBC % Seg Neutrophils # Seg Neutrophils # Man Monocytes # (Manual) PT INR Activated Clotting Time POC ABG pH 7.534 H POC ABG pCO2 27.4 L POC ABG pO2 Sodium Potassium Chloride Carbon Dioxide BUN Creatinine Glucose POC Glucose 132 H 129 H Calcium Magnesium Direct Bilirubin AST ALT Alkaline Phosphatase Total Creatine Kinase CK-MB (CK-2) CK-MB (CK-2) Rel Index Troponin T C-Reactive Protein Total Protein Albumin Triglycerides Ur Specific [place] Urine WBC (Auto) Miscellaneous Test 04/02/17 04/03/17 04/03/17 18:05 00:08 05:09 WBC RBC Hgb Hct MCV MCH Plt Count Lymph % (Auto) [place] % (Auto) Eos % (Auto) Baso % (Auto) Lymph # Baso # Seg Neutrophils % Lymphocytes % (Manual) Monocytes % (Manual) Nucleated RBC % Seg Neutrophils # Seg Neutrophils # Man Monocytes # (Manual) PT INR Activated Clotting Time POC ABG pH 7.455 H POC ABG pCO2 33.2 L POC ABG pO2 120 H Sodium Potassium Chloride Carbon Dioxide BUN Creatinine Glucose POC Glucose 136 H 128 H Calcium Magnesium Direct Bilirubin AST ALT Alkaline Phosphatase Total Creatine Kinase CK-MB (CK-2) CK-MB (CK-2) Rel Index Troponin T C-Reactive Protein Total Protein Albumin Triglycerides Ur Specific [place] Urine WBC (Auto) Miscellaneous Test 04/03/17 04/03/17 04/03/17 06:32 11:54 12:16 WBC 11.9 H RBC Hgb Hct MCV MCH Plt Count 125 L Lymph % (Auto) 4.8 L [place] % (Auto) Eos % (Auto) Baso % (Auto) Lymph # 0.6 L Baso # Seg Neutrophils % 86.7 H Lymphocytes % (Manual) Monocytes % (Manual) Nucleated RBC % Seg Neutrophils # 10.3 H Seg Neutrophils # Man Monocytes # (Manual) PT INR Activated Clotting Time POC ABG pH POC ABG pCO2 POC ABG pO2 Sodium Potassium Chloride Carbon Dioxide BUN Creatinine Glucose POC Glucose 138 H 143 H Calcium Magnesium Direct Bilirubin AST ALT Alkaline Phosphatase Total Creatine Kinase CK-MB (CK-2) CK-MB (CK-2) Rel Index Troponin T C-Reactive Protein Total Protein Albumin Triglycerides Ur Specific [place] Urine WBC (Auto) Miscellaneous Test 04/03/17 04/03/17 04/04/17 17:33 23:59 04:34 WBC RBC Hgb Hct MCV MCH Plt Count Lymph % (Auto) [place] % (Auto) Eos % (Auto) Baso % (Auto) Lymph # Baso # Seg Neutrophils % Lymphocytes % (Manual) Monocytes % (Manual) Nucleated RBC % Seg Neutrophils # Seg Neutrophils # Man Monocytes # (Manual) PT INR Activated Clotting Time POC ABG pH 7.457 H POC ABG pCO2 29.8 L POC ABG pO2 76 L Sodium Potassium Chloride Carbon Dioxide BUN Creatinine Glucose POC Glucose 130 H 155 H Calcium Magnesium Direct Bilirubin AST ALT Alkaline Phosphatase Total Creatine Kinase CK-MB (CK-2) CK-MB (CK-2) Rel Index Troponin T C-Reactive Protein Total Protein Albumin Triglycerides Ur Specific [place] Urine WBC (Auto) Miscellaneous Test 04/04/17 04/04/17 04/04/17 05:27 12:22 18:18 WBC RBC Hgb Hct MCV MCH Plt Count Lymph % (Auto) [place] % (Auto) Eos % (Auto) Baso % (Auto) Lymph # Baso # Seg Neutrophils % Lymphocytes % (Manual) Monocytes % (Manual) Nucleated RBC % Seg Neutrophils # Seg Neutrophils # Man Monocytes # (Manual) PT INR Activated Clotting Time POC ABG pH POC ABG pCO2 POC ABG pO2 Sodium Potassium Chloride Carbon Dioxide BUN Creatinine Glucose POC Glucose 164 H 146 H 130 H Calcium Magnesium Direct Bilirubin AST ALT Alkaline Phosphatase Total Creatine Kinase CK-MB (CK-2) CK-MB (CK-2) Rel Index Troponin T C-Reactive Protein Total Protein Albumin Triglycerides Ur Specific [place] Urine WBC (Auto) Miscellaneous Test 04/05/17 04/05/17 04/05/17 04:43 05:28 11:36 WBC RBC Hgb Hct MCV MCH Plt Count Lymph % (Auto) [place] % (Auto) Eos % (Auto) Baso % (Auto) Lymph # Baso # Seg Neutrophils % Lymphocytes % (Manual) Monocytes % (Manual) Nucleated RBC % Seg Neutrophils # Seg Neutrophils # Man Monocytes # (Manual) PT INR Activated Clotting Time POC ABG pH 7.479 H POC ABG pCO2 33.5 L POC ABG pO2 76 L Sodium Potassium Chloride Carbon Dioxide BUN Creatinine Glucose POC Glucose 145 H 136 H Calcium Magnesium Direct Bilirubin AST ALT Alkaline Phosphatase Total Creatine Kinase CK-MB (CK-2) CK-MB (CK-2) Rel Index Troponin T C-Reactive Protein Total Protein Albumin Triglycerides Ur Specific [place] Urine WBC (Auto) Miscellaneous Test 04/05/17 04/06/17 04/06/17 17:58 00:16 05:26 WBC RBC Hgb Hct MCV MCH Plt Count Lymph % (Auto) [place] % (Auto) Eos % (Auto) Baso % (Auto) Lymph # Baso # Seg Neutrophils % Lymphocytes % (Manual) Monocytes % (Manual) Nucleated RBC % Seg Neutrophils # Seg Neutrophils # Man Monocytes # (Manual) PT INR Activated Clotting Time POC ABG pH POC ABG pCO2 POC ABG pO2 Sodium Potassium Chloride Carbon Dioxide BUN Creatinine Glucose POC Glucose 130 H 159 H 146 H Calcium Magnesium Direct Bilirubin AST ALT Alkaline Phosphatase Total Creatine Kinase CK-MB (CK-2) CK-MB (CK-2) Rel Index Troponin T C-Reactive Protein Total Protein Albumin Triglycerides Ur Specific [place] Urine WBC (Auto) Miscellaneous Test 04/06/17 04/06/17 04/07/17 13:11 16:54 11:45 WBC RBC Hgb Hct MCV MCH Plt Count Lymph % (Auto) [place] % (Auto) Eos % (Auto) Baso % (Auto) Lymph # Baso # Seg Neutrophils % Lymphocytes % (Manual) Monocytes % (Manual) Nucleated RBC % Seg Neutrophils # Seg Neutrophils # Man Monocytes # (Manual) PT INR Activated Clotting Time POC ABG pH 7.517 H POC ABG pCO2 32.1 L POC ABG pO2 Sodium Potassium Chloride Carbon Dioxide BUN Creatinine Glucose POC Glucose 132 H 123 H Calcium Magnesium Direct Bilirubin AST ALT Alkaline Phosphatase Total Creatine Kinase CK-MB (CK-2) CK-MB (CK-2) Rel Index Troponin T C-Reactive Protein Total Protein Albumin Triglycerides Ur Specific [place] Urine WBC (Auto) Miscellaneous Test 04/07/17 04/07/17 04/07/17 12:51 17:40 23:55 WBC RBC Hgb Hct MCV MCH Plt Count Lymph % (Auto) [place] % (Auto) Eos % (Auto) Baso % (Auto) Lymph # Baso # Seg Neutrophils % Lymphocytes % (Manual) Monocytes % (Manual) Nucleated RBC % Seg Neutrophils # Seg Neutrophils # Man Monocytes # (Manual) PT INR Activated Clotting Time POC ABG pH POC ABG pCO2 POC ABG pO2 Sodium Potassium Chloride Carbon Dioxide BUN Creatinine Glucose POC Glucose 138 H 154 H 143 H Calcium Magnesium Direct Bilirubin AST ALT Alkaline Phosphatase Total Creatine Kinase CK-MB (CK-2) CK-MB (CK-2) Rel Index Troponin T C-Reactive Protein Total Protein Albumin Triglycerides Ur Specific [place] Urine WBC (Auto) Miscellaneous Test 0104/08/17 04/08/17 05:27 11:14 17:44 WBC RBC Hgb Hct MCV MCH Plt Count Lymph % (Auto) [place] % (Auto) Eos % (Auto) Baso % (Auto) Lymph # Baso # Seg Neutrophils % Lymphocytes % (Manual) Monocytes % (Manual) Nucleated RBC % Seg Neutrophils # Seg Neutrophils # Man Monocytes # (Manual) PT INR Activated Clotting Time POC ABG pH POC ABG pCO2 POC ABG pO2 Sodium Potassium Chloride Carbon Dioxide BUN Creatinine Glucose POC Glucose 142 H 153 H 129 H Calcium Magnesium Direct Bilirubin AST ALT Alkaline Phosphatase Total Creatine Kinase CK-MB (CK-2) CK-MB (CK-2) Rel Index Troponin T C-Reactive Protein Total Protein Albumin Triglycerides Ur Specific [place] Urine WBC (Auto) Miscellaneous Test 04/09/17 04/09/17 04/09/17 08:20 11:21 17:37 WBC RBC Hgb Hct MCV MCH Plt Count Lymph % (Auto) [place] % (Auto) Eos % (Auto) Baso % (Auto) Lymph # Baso # Seg Neutrophils % Lymphocytes % (Manual) Monocytes % (Manual) Nucleated RBC % Seg Neutrophils # Seg Neutrophils # Man Monocytes # (Manual) PT INR Activated Clotting Time POC ABG pH POC ABG pCO2 POC ABG pO2 Sodium 147 H Potassium Chloride 108.8 H Carbon Dioxide BUN 39 H Creatinine 0.5 L Glucose 138 H POC Glucose 152 H 109 H Calcium Magnesium Direct Bilirubin AST ALT Alkaline Phosphatase Total Creatine Kinase CK-MB (CK-2) CK-MB (CK-2) Rel Index Troponin T C-Reactive Protein Total Protein Albumin Triglycerides Ur Specific [place] Urine WBC (Auto) Miscellaneous Test 04/10/17 04/10/17 04/10/17 00:13 04:16 04:16 WBC RBC Hgb 11.5 L Hct MCV 96 H MCH Plt Count 103 L Lymph % (Auto) 11.1 L [place] % (Auto) Eos % (Auto) Baso % (Auto) Lymph # Baso # Seg Neutrophils % 81.5 H Lymphocytes % (Manual) Monocytes % (Manual) Nucleated RBC % Seg Neutrophils # 8.8 H Seg Neutrophils # Man Monocytes # (Manual) PT INR Activated Clotting Time POC ABG pH POC ABG pCO2 POC ABG pO2 Sodium 148 H Potassium Chloride 109.0 H Carbon Dioxide BUN 36 H Creatinine 0.5 L Glucose 131 H POC Glucose 127 H Calcium 8.1 L Magnesium 2.40 H Direct Bilirubin AST 206 H ALT 228 H Alkaline Phosphatase 178 H Total Creatine Kinase CK-MB (CK-2) CK-MB (CK-2) Rel Index Troponin T C-Reactive Protein Total Protein Albumin 2.8 L Triglycerides Ur Specific [place] Urine WBC (Auto) Miscellaneous Test 04/10/17 04/10/17 04/10/17 06:01 11:57 18:27 WBC RBC Hgb Hct MCV MCH Plt Count Lymph % (Auto) [place] % (Auto) Eos % (Auto) Baso % (Auto) Lymph # Baso # Seg Neutrophils % Lymphocytes % (Manual) Monocytes % (Manual) Nucleated RBC % Seg Neutrophils # Seg Neutrophils # Man Monocytes # (Manual) PT INR Activated Clotting Time POC ABG pH POC ABG pCO2 POC ABG pO2 Sodium Potassium Chloride Carbon Dioxide BUN Creatinine Glucose POC Glucose 108 H 154 H 130 H Calcium Magnesium Direct Bilirubin AST ALT Alkaline Phosphatase Total Creatine Kinase CK-MB (CK-2) CK-MB (CK-2) Rel Index Troponin T C-Reactive Protein Total Protein Albumin Triglycerides Ur Specific [place] Urine WBC (Auto) Miscellaneous Test 04/11/17 04/11/17 04/12/17 12:25 17:10 00:22 WBC RBC Hgb Hct MCV MCH Plt Count Lymph % (Auto) [place] % (Auto) Eos % (Auto) Baso % (Auto) Lymph # Baso # Seg Neutrophils % Lymphocytes % (Manual) Monocytes % (Manual) Nucleated RBC % Seg Neutrophils # Seg Neutrophils # Man Monocytes # (Manual) PT INR Activated Clotting Time POC ABG pH POC ABG pCO2 POC ABG pO2 Sodium Potassium Chloride Carbon Dioxide BUN Creatinine Glucose POC Glucose 107 H 129 H 128 H Calcium Magnesium Direct Bilirubin AST ALT Alkaline Phosphatase Total Creatine Kinase CK-MB (CK-2) CK-MB (CK-2) Rel Index Troponin T C-Reactive Protein Total Protein Albumin Triglycerides Ur Specific [place] Urine WBC (Auto) Miscellaneous Test 04/12/17 04/12/17 04/12/17 05:00 11:57 17:47 WBC RBC Hgb Hct MCV MCH Plt Count Lymph % (Auto) [place] % (Auto) Eos % (Auto) Baso % (Auto) Lymph # Baso # Seg Neutrophils % Lymphocytes % (Manual) Monocytes % (Manual) Nucleated RBC % Seg Neutrophils # Seg Neutrophils # Man Monocytes # (Manual) PT INR Activated Clotting Time POC ABG pH POC ABG pCO2 POC ABG pO2 Sodium Potassium Chloride Carbon Dioxide BUN Creatinine Glucose POC Glucose 140 H 142 H Calcium Magnesium Direct Bilirubin AST 158 H ALT 184 H Alkaline Phosphatase 170 H Total Creatine Kinase CK-MB (CK-2) CK-MB (CK-2) Rel Index Troponin T C-Reactive Protein Total Protein Albumin 2.8 L Triglycerides Ur Specific [place] Urine WBC (Auto) Miscellaneous Test 04/12/17 04/12/17 04/13/17 21:36 21:36 01:37 WBC RBC Hgb Hct MCV MCH Plt Count Lymph % (Auto) [place] % (Auto) Eos % (Auto) Baso % (Auto) Lymph # Baso # Seg Neutrophils % Lymphocytes % (Manual) Monocytes % (Manual) Nucleated RBC % Seg Neutrophils # Seg Neutrophils # Man Monocytes # (Manual) PT INR Activated Clotting Time POC ABG pH POC ABG pCO2 POC ABG pO2 Sodium Potassium Chloride Carbon Dioxide BUN Creatinine Glucose POC Glucose 126 H Calcium Magnesium Direct Bilirubin AST ALT Alkaline Phosphatase Total Creatine Kinase 1404 H CK-MB (CK-2) 8.0 H CK-MB (CK-2) Rel Index Troponin T 0.767 H* C-Reactive Protein Total Protein Albumin Triglycerides Ur Specific [place] Urine WBC (Auto) Miscellaneous Test 04/13/17 04/13/17 04/13/17 04:45 04:52 12:17 WBC RBC Hgb Hct MCV MCH Plt Count Lymph % (Auto) [place] % (Auto) Eos % (Auto) Baso % (Auto) Lymph # Baso # Seg Neutrophils % Lymphocytes % (Manual) Monocytes % (Manual) Nucleated RBC % Seg Neutrophils # Seg Neutrophils # Man Monocytes # (Manual) PT INR Activated Clotting Time POC ABG pH POC ABG pCO2 POC ABG pO2 Sodium 148 H Potassium Chloride 112.8 H Carbon Dioxide BUN 33 H Creatinine 0.4 L Glucose 121 H POC Glucose 126 H 149 H Calcium Magnesium Direct Bilirubin AST 160 H ALT 189 H Alkaline Phosphatase 166 H Total Creatine Kinase CK-MB (CK-2) CK-MB (CK-2) Rel Index Troponin T C-Reactive Protein Total Protein Albumin 2.6 L Triglycerides Ur Specific [place] Urine WBC (Auto) Miscellaneous Test 04/13/17 04/14/17 04/14/17 17:45 00:20 00:45 WBC RBC Hgb Hct MCV MCH Plt Count Lymph % (Auto) [place] % (Auto) Eos % (Auto) Baso % (Auto) Lymph # Baso # Seg Neutrophils % Lymphocytes % (Manual) Monocytes % (Manual) Nucleated RBC % Seg Neutrophils # Seg Neutrophils # Man Monocytes # (Manual) PT INR Activated Clotting Time POC ABG pH POC ABG pCO2 POC ABG pO2 Sodium Potassium Chloride Carbon Dioxide BUN Creatinine Glucose POC Glucose 130 H 144 H 144 H Calcium Magnesium Direct Bilirubin AST ALT Alkaline Phosphatase Total Creatine Kinase CK-MB (CK-2) CK-MB (CK-2) Rel Index Troponin T C-Reactive Protein Total Protein Albumin Triglycerides Ur Specific [place] Urine WBC (Auto) Miscellaneous Test 04/14/17 04/14/17 04/14/17 05:40 11:06 11:31 WBC RBC Hgb Hct MCV MCH Plt Count Lymph % (Auto) [place] % (Auto) Eos % (Auto) Baso % (Auto) Lymph # Baso # Seg Neutrophils % Lymphocytes % (Manual) Monocytes % (Manual) Nucleated RBC % Seg Neutrophils # Seg Neutrophils # Man Monocytes # (Manual) PT INR Activated Clotting Time POC ABG pH POC ABG pCO2 POC ABG pO2 Sodium Potassium Chloride Carbon Dioxide BUN Creatinine Glucose POC Glucose 139 H 123 H Calcium Magnesium Direct Bilirubin AST ALT Alkaline Phosphatase Total Creatine Kinase CK-MB (CK-2) CK-MB (CK-2) Rel Index Troponin T C-Reactive Protein Total Protein Albumin Triglycerides Ur Specific [place] 1.033 H Urine WBC (Auto) > 182.0 H Miscellaneous Test 04/14/17 04/14/17 04/15/17 18:00 23:52 05:15 WBC 12.5 H RBC 3.38 L Hgb 10.6 L Hct 32.7 L MCV 97 H MCH Plt Count 107 L Lymph % (Auto) 8.7 L Johnson % (Auto) Eos % (Auto) Baso % (Auto) Lymph # 1.1 L Baso # Seg Neutrophils % 86.1 H Lymphocytes % (Manual) Monocytes % (Manual) Nucleated RBC % Seg Neutrophils # 10.7 H Seg Neutrophils # Man Monocytes # (Manual) PT INR Activated Clotting Time POC ABG pH POC ABG pCO2 POC ABG pO2 Sodium Potassium Chloride Carbon Dioxide BUN Creatinine Glucose POC Glucose 133 H 133 H Calcium Magnesium Direct Bilirubin AST ALT Alkaline Phosphatase Total Creatine Kinase CK-MB (CK-2) CK-MB (CK-2) Rel Index Troponin T C-Reactive Protein Total Protein Albumin Triglycerides Ur Specific [place] Urine WBC (Auto) Miscellaneous Test 04/15/17 04/15/17 04/15/17 05:15 05:25 11:50 WBC RBC Hgb Hct MCV MCH Plt Count Lymph % (Auto) [place] % (Auto) Eos % (Auto) Baso % (Auto) Lymph # Baso # Seg Neutrophils % Lymphocytes % (Manual) Monocytes % (Manual) Nucleated RBC % Seg Neutrophils # Seg Neutrophils # Man Monocytes # (Manual) PT INR Activated Clotting Time POC ABG pH POC ABG pCO2 POC ABG pO2 Sodium 149 H Potassium 3.5 L Chloride 114.1 H Carbon Dioxide 21 L BUN 29 H Creatinine 0.4 L Glucose 128 H POC Glucose 133 H 107 H Calcium 8.3 L Magnesium Direct Bilirubin 0.4 H AST 149 H ALT 182 H Alkaline Phosphatase 143 H Total Creatine Kinase CK-MB (CK-2) CK-MB (CK-2) Rel Index Troponin T C-Reactive Protein Total Protein Albumin 2.5 L Triglycerides Ur Specific [place] Urine WBC (Auto) Miscellaneous Test 04/15/17 04/16/17 04/16/17 16:55 00:02 03:17 WBC RBC 3.39 L Hgb 10.5 L Hct 32.4 L MCV 96 H MCH Plt Count 106 L Lymph % (Auto) 6.7 L [place] % (Auto) Eos % (Auto) Baso % (Auto) Lymph # 0.6 L Baso # Seg Neutrophils % 86.8 H Lymphocytes % (Manual) Monocytes % (Manual) Nucleated RBC % Seg Neutrophils # 8.2 H Seg Neutrophils # Man Monocytes # (Manual) PT INR Activated Clotting Time POC ABG pH POC ABG pCO2 POC ABG pO2 Sodium Potassium Chloride Carbon Dioxide BUN Creatinine Glucose POC Glucose 146 H 148 H Calcium Magnesium Direct Bilirubin AST ALT Alkaline Phosphatase Total Creatine Kinase CK-MB (CK-2) CK-MB (CK-2) Rel Index Troponin T C-Reactive Protein Total Protein Albumin Triglycerides Ur Specific [place] Urine WBC (Auto) Miscellaneous Test 04/16/17 04/16/17 04/16/17 03:17 05:19 11:13 WBC RBC Hgb Hct MCV MCH Plt Count Lymph % (Auto) [place] % (Auto) Eos % (Auto) Baso % (Auto) Lymph # Baso # Seg Neutrophils % Lymphocytes % (Manual) Monocytes % (Manual) Nucleated RBC % Seg Neutrophils # Seg Neutrophils # Man Monocytes # (Manual) PT INR Activated Clotting Time POC ABG pH POC ABG pCO2 POC ABG pO2 Sodium 149 H Potassium Chloride 111.1 H Carbon Dioxide 20 L BUN 27 H Creatinine 0.3 L Glucose 156 H POC Glucose 171 H 169 H Calcium 8.3 L Magnesium Direct Bilirubin AST ALT Alkaline Phosphatase Total Creatine Kinase CK-MB (CK-2) CK-MB (CK-2) Rel Index Troponin T C-Reactive Protein Total Protein Albumin Triglycerides Ur Specific [place] Urine WBC (Auto) Miscellaneous Test 04/16/17 04/17/17 04/17/17 17:03 00:00 05:09 WBC RBC Hgb Hct MCV MCH Plt Count Lymph % (Auto) [place] % (Auto) Eos % (Auto) Baso % (Auto) Lymph # Baso # Seg Neutrophils % Lymphocytes % (Manual) Monocytes % (Manual) Nucleated RBC % Seg Neutrophils # Seg Neutrophils # Man Monocytes # (Manual) PT INR Activated Clotting Time POC ABG pH POC ABG pCO2 POC ABG pO2 Sodium Potassium Chloride Carbon Dioxide BUN Creatinine Glucose POC Glucose 151 H 165 H 145 H Calcium Magnesium Direct Bilirubin AST ALT Alkaline Phosphatase Total Creatine Kinase CK-MB (CK-2) CK-MB (CK-2) Rel Index Troponin T C-Reactive Protein Total Protein Albumin Triglycerides Ur Specific [place] Urine WBC (Auto) Miscellaneous Test 04/17/17 04/17/17 04/18/17 11:38 17:47 00:01 WBC RBC Hgb Hct MCV MCH Plt Count Lymph % (Auto) [place] % (Auto) Eos % (Auto) Baso % (Auto) Lymph # Baso # Seg Neutrophils % Lymphocytes % (Manual) Monocytes % (Manual) Nucleated RBC % Seg Neutrophils # Seg Neutrophils # Man Monocytes # (Manual) PT INR Activated Clotting Time POC ABG pH POC ABG pCO2 POC ABG pO2 Sodium Potassium Chloride Carbon Dioxide BUN Creatinine Glucose POC Glucose 170 H 161 H 131 H Calcium Magnesium Direct Bilirubin AST ALT Alkaline Phosphatase Total Creatine Kinase CK-MB (CK-2) CK-MB (CK-2) Rel Index Troponin T C-Reactive Protein Total Protein Albumin Triglycerides Ur Specific [place] Urine WBC (Auto) Miscellaneous Test 04/18/17 04/18/17 04/18/17 03:55 03:55 05:30 WBC RBC 3.05 L Hgb 9.8 L Hct 29.0 L MCV 95 H MCH Plt Count 113 L Lymph % (Auto) [place] % (Auto) Eos % (Auto) 5.3 H Baso % (Auto) Lymph # Baso # Seg Neutrophils % 71.5 H Lymphocytes % (Manual) Monocytes % (Manual) Nucleated RBC % Seg Neutrophils # Seg Neutrophils # Man Monocytes # (Manual) PT INR Activated Clotting Time POC ABG pH 7.460 H POC ABG pCO2 30.8 L POC ABG pO2 129 H Sodium Potassium Chloride Carbon Dioxide 21 L BUN 25 H Creatinine 0.4 L Glucose 123 H POC Glucose Calcium 8.3 L Magnesium Direct Bilirubin AST ALT Alkaline Phosphatase Total Creatine Kinase CK-MB (CK-2) CK-MB (CK-2) Rel Index Troponin T C-Reactive Protein Total Protein Albumin Triglycerides Ur Specific [place] Urine WBC (Auto) Miscellaneous Test 04/18/17 04/18/17 04/19/17 17:10 23:40 04:36 WBC RBC 3.21 L Hgb 10.2 L Hct 30.4 L MCV 95 H MCH Plt Count 131 L Lymph % (Auto) 12.1 L [place] % (Auto) Eos % (Auto) 4.7 H Baso % (Auto) 2.4 H Lymph # 0.9 L Baso # 0.2 H Seg Neutrophils % 75.0 H Lymphocytes % (Manual) Monocytes % (Manual) Nucleated RBC % Seg Neutrophils # Seg Neutrophils # Man Monocytes # (Manual) PT INR Activated Clotting Time POC ABG pH POC ABG pCO2 POC ABG pO2 Sodium Potassium Chloride Carbon Dioxide BUN Creatinine Glucose POC Glucose 135 H 157 H Calcium Magnesium Direct Bilirubin AST ALT Alkaline Phosphatase Total Creatine Kinase CK-MB (CK-2) CK-MB (CK-2) Rel Index Troponin T C-Reactive Protein Total Protein Albumin Triglycerides Ur Specific [place] Urine WBC (Auto) Miscellaneous Test 04/19/17 04/19/17 04/19/17 04:36 05:12 06:50 WBC RBC Hgb Hct MCV MCH Plt Count Lymph % (Auto) [place] % (Auto) Eos % (Auto) Baso % (Auto) Lymph # Baso # Seg Neutrophils % Lymphocytes % (Manual) Monocytes % (Manual) Nucleated RBC % Seg Neutrophils # Seg Neutrophils # Man Monocytes # (Manual) PT INR Activated Clotting Time POC ABG pH 7.516 H POC ABG pCO2 28.0 L POC ABG pO2 Sodium Potassium Chloride Carbon Dioxide 21 L BUN 23 H Creatinine 0.2 L Glucose 137 H POC Glucose 131 H Calcium 7.9 L Magnesium Direct Bilirubin AST ALT Alkaline Phosphatase Total Creatine Kinase CK-MB (CK-2) CK-MB (CK-2) Rel Index Troponin T C-Reactive Protein Total Protein Albumin Triglycerides Ur Specific [place] Urine WBC (Auto) Miscellaneous Test 04/19/17 04/19/17 04/20/17 12:36 17:42 00:12 WBC RBC Hgb Hct MCV MCH Plt Count Lymph % (Auto) [place] % (Auto) Eos % (Auto) Baso % (Auto) Lymph # Baso # Seg Neutrophils % Lymphocytes % (Manual) Monocytes % (Manual) Nucleated RBC % Seg Neutrophils # Seg Neutrophils # Man Monocytes # (Manual) PT INR Activated Clotting Time POC ABG pH POC ABG pCO2 POC ABG pO2 Sodium Potassium Chloride Carbon Dioxide BUN Creatinine Glucose POC Glucose 128 H 140 H 132 H Calcium Magnesium Direct Bilirubin AST ALT Alkaline Phosphatase Total Creatine Kinase CK-MB (CK-2) CK-MB (CK-2) Rel Index Troponin T C-Reactive Protein Total Protein Albumin Triglycerides Ur Specific [place] Urine WBC (Auto) Miscellaneous Test 04/20/17 04/20/17 04/20/17 03:35 03:35 05:10 WBC RBC 3.34 L Hgb 10.4 L Hct 31.6 L MCV 95 H MCH Plt Count Lymph % (Auto) 12.9 L [place] % (Auto) Eos % (Auto) Baso % (Auto) Lymph # Baso # Seg Neutrophils % 77.3 H Lymphocytes % (Manual) Monocytes % (Manual) Nucleated RBC % Seg Neutrophils # Seg Neutrophils # Man Monocytes # (Manual) PT INR Activated Clotting Time POC ABG pH POC ABG pCO2 POC ABG pO2 Sodium Potassium Chloride Carbon Dioxide BUN Creatinine 0.3 L Glucose 155 H POC Glucose 135 H Calcium 7.8 L Magnesium Direct Bilirubin AST ALT Alkaline Phosphatase Total Creatine Kinase CK-MB (CK-2) CK-MB (CK-2) Rel Index Troponin T C-Reactive Protein Total Protein Albumin Triglycerides Ur Specific [place] Urine WBC (Auto) Miscellaneous Test 04/20/17 04/20/17 04/21/17 12:49 18:21 00:05 WBC RBC Hgb Hct MCV MCH Plt Count Lymph % (Auto) [place] % (Auto) Eos % (Auto) Baso % (Auto) Lymph # Baso # Seg Neutrophils % Lymphocytes % (Manual) Monocytes % (Manual) Nucleated RBC % Seg Neutrophils # Seg Neutrophils # Man Monocytes # (Manual) PT INR Activated Clotting Time POC ABG pH POC ABG pCO2 POC ABG pO2 Sodium Potassium Chloride Carbon Dioxide BUN Creatinine Glucose POC Glucose 155 H 165 H 141 H Calcium Magnesium Direct Bilirubin AST ALT Alkaline Phosphatase Total Creatine Kinase CK-MB (CK-2) CK-MB (CK-2) Rel Index Troponin T C-Reactive Protein Total Protein Albumin Triglycerides Ur Specific [place] Urine WBC (Auto) Miscellaneous Test 04/21/17 04/21/17 04/21/17 06:00 12:11 17:04 WBC RBC Hgb Hct MCV MCH Plt Count Lymph % (Auto) [place] % (Auto) Eos % (Auto) Baso % (Auto) Lymph # Baso # Seg Neutrophils % Lymphocytes % (Manual) Monocytes % (Manual) Nucleated RBC % Seg Neutrophils # Seg Neutrophils # Man Monocytes # (Manual) PT INR Activated Clotting Time POC ABG pH POC ABG pCO2 POC ABG pO2 Sodium Potassium Chloride Carbon Dioxide BUN Creatinine Glucose POC Glucose 152 H 165 H 156 H Calcium Magnesium Direct Bilirubin AST ALT Alkaline Phosphatase Total Creatine Kinase CK-MB (CK-2) CK-MB (CK-2) Rel Index Troponin T C-Reactive Protein Total Protein Albumin Triglycerides Ur Specific [place] Urine WBC (Auto) Miscellaneous Test 04/21/17 04/21/17 04/22/17 22:00 23:59 05:49 WBC RBC Hgb Hct MCV MCH Plt Count Lymph % (Auto) [place] % (Auto) Eos % (Auto) Baso % (Auto) Lymph # Baso # Seg Neutrophils % Lymphocytes % (Manual) Monocytes % (Manual) Nucleated RBC % Seg Neutrophils # Seg Neutrophils # Man Monocytes # (Manual) PT INR Activated Clotting Time POC ABG pH POC ABG pCO2 POC ABG pO2 Sodium Potassium Chloride Carbon Dioxide BUN Creatinine Glucose POC Glucose 166 H 173 H Calcium Magnesium Direct Bilirubin AST ALT Alkaline Phosphatase Total Creatine Kinase CK-MB (CK-2) CK-MB (CK-2) Rel Index Troponin T C-Reactive Protein Total Protein Albumin Triglycerides Ur Specific [place] Urine WBC (Auto) 10.0 H Miscellaneous Test 04/22/17 04/22/17 04/23/17 11:11 18:04 00:37 WBC RBC Hgb Hct MCV MCH Plt Count Lymph % (Auto) [place] % (Auto) Eos % (Auto) Baso % (Auto) Lymph # Baso # Seg Neutrophils % Lymphocytes % (Manual) Monocytes % (Manual) Nucleated RBC % Seg Neutrophils # Seg Neutrophils # Man Monocytes # (Manual) PT INR Activated Clotting Time POC ABG pH POC ABG pCO2 POC ABG pO2 Sodium Potassium Chloride Carbon Dioxide BUN Creatinine Glucose POC Glucose 172 H 140 H 135 H Calcium Magnesium Direct Bilirubin AST ALT Alkaline Phosphatase Total Creatine Kinase CK-MB (CK-2) CK-MB (CK-2) Rel Index Troponin T C-Reactive Protein Total Protein Albumin Triglycerides Ur Specific [place] Urine WBC (Auto) Miscellaneous Test 04/23/17 04/23/17 04/23/17 05:33 06:20 11:10 WBC RBC 3.19 L Hgb 9.9 L Hct 30.0 L MCV MCH Plt Count Lymph % (Auto) 8.0 L [place] % (Auto) Eos % (Auto) Baso % (Auto) Lymph # 0.8 L Baso # Seg Neutrophils % 84.5 H Lymphocytes % (Manual) Monocytes % (Manual) Nucleated RBC % Seg Neutrophils # 8.2 H Seg Neutrophils # Man Monocytes # (Manual) PT INR Activated Clotting Time POC ABG pH POC ABG pCO2 POC ABG pO2 Sodium Potassium Chloride Carbon Dioxide BUN Creatinine Glucose POC Glucose 134 H 134 H Calcium Magnesium Direct Bilirubin AST ALT Alkaline Phosphatase Total Creatine Kinase CK-MB (CK-2) CK-MB (CK-2) Rel Index Troponin T C-Reactive Protein Total Protein Albumin Triglycerides Ur Specific [place] Urine WBC (Auto) Miscellaneous Test 04/23/17 04/24/17 04/24/17 17:26 00:53 06:46 WBC RBC Hgb Hct MCV MCH Plt Count Lymph % (Auto) [place] % (Auto) Eos % (Auto) Baso % (Auto) Lymph # Baso # Seg Neutrophils % Lymphocytes % (Manual) Monocytes % (Manual) Nucleated RBC % Seg Neutrophils # Seg Neutrophils # Man Monocytes # (Manual) PT INR Activated Clotting Time POC ABG pH POC ABG pCO2 POC ABG pO2 Sodium Potassium Chloride Carbon Dioxide BUN Creatinine Glucose POC Glucose 164 H 146 H 125 H Calcium Magnesium Direct Bilirubin AST ALT Alkaline Phosphatase Total Creatine Kinase CK-MB (CK-2) CK-MB (CK-2) Rel Index Troponin T C-Reactive Protein Total Protein Albumin Triglycerides Ur Specific [place] Urine WBC (Auto) Miscellaneous Test 04/24/17 04/24/17 04/24/17 11:55 17:50 23:36 WBC RBC Hgb Hct MCV MCH Plt Count Lymph % (Auto) [place] % (Auto) Eos % (Auto) Baso % (Auto) Lymph # Baso # Seg Neutrophils % Lymphocytes % (Manual) Monocytes % (Manual) Nucleated RBC % Seg Neutrophils # Seg Neutrophils # Man Monocytes # (Manual) PT INR Activated Clotting Time POC ABG pH POC ABG pCO2 POC ABG pO2 Sodium Potassium Chloride Carbon Dioxide BUN Creatinine Glucose POC Glucose 156 H 146 H 131 H Calcium Magnesium Direct Bilirubin AST ALT Alkaline Phosphatase Total Creatine Kinase CK-MB (CK-2) CK-MB (CK-2) Rel Index Troponin T C-Reactive Protein Total Protein Albumin Triglycerides Ur Specific [place] Urine WBC (Auto) Miscellaneous Test 04/25/17 04/25/17 04/25/17 04:51 05:16 07:07 WBC RBC Hgb Hct MCV MCH Plt Count Lymph % (Auto) [place] % (Auto) Eos % (Auto) Baso % (Auto) Lymph # Baso # Seg Neutrophils % Lymphocytes % (Manual) Monocytes % (Manual) Nucleated RBC % Seg Neutrophils # Seg Neutrophils # Man Monocytes # (Manual) PT INR Activated Clotting Time POC ABG pH POC ABG pCO2 POC ABG pO2 Sodium Potassium Chloride Carbon Dioxide BUN Creatinine Glucose POC Glucose 139 H Calcium Magnesium Direct Bilirubin AST 105 H ALT 204 H Alkaline Phosphatase 189 H Total Creatine Kinase CK-MB (CK-2) CK-MB (CK-2) Rel Index Troponin T C-Reactive Protein Total Protein Albumin 2.4 L Triglycerides Ur Specific [place] Urine WBC (Auto) Miscellaneous Test Flexitest 1 H 04/25/17 04/25/17 04/25/17 12:29 17:23 23:32 WBC RBC Hgb Hct MCV MCH Plt Count Lymph % (Auto) [place] % (Auto) Eos % (Auto) Baso % (Auto) Lymph # Baso # Seg Neutrophils % Lymphocytes % (Manual) Monocytes % (Manual) Nucleated RBC % Seg Neutrophils # Seg Neutrophils # Man Monocytes # (Manual) PT INR Activated Clotting Time POC ABG pH POC ABG pCO2 POC ABG pO2 Sodium Potassium Chloride Carbon Dioxide BUN Creatinine Glucose POC Glucose 132 H 133 H 128 H Calcium Magnesium Direct Bilirubin AST ALT Alkaline Phosphatase Total Creatine Kinase CK-MB (CK-2) CK-MB (CK-2) Rel Index Troponin T C-Reactive Protein Total Protein Albumin Triglycerides Ur Specific [place] Urine WBC (Auto) Miscellaneous Test 04/26/17 04/26/17 04/26/17 05:24 11:28 17:09 WBC RBC Hgb Hct MCV MCH Plt Count Lymph % (Auto) [place] % (Auto) Eos % (Auto) Baso % (Auto) Lymph # Baso # Seg Neutrophils % Lymphocytes % (Manual) Monocytes % (Manual) Nucleated RBC % Seg Neutrophils # Seg Neutrophils # Man Monocytes # (Manual) PT INR Activated Clotting Time POC ABG pH POC ABG pCO2 POC ABG pO2 Sodium Potassium Chloride Carbon Dioxide BUN Creatinine Glucose POC Glucose 132 H 146 H 141 H Calcium Magnesium Direct Bilirubin AST ALT Alkaline Phosphatase Total Creatine Kinase CK-MB (CK-2) CK-MB (CK-2) Rel Index Troponin T C-Reactive Protein Total Protein Albumin Triglycerides Ur Specific [place] Urine WBC (Auto) Miscellaneous Test 04/26/17 04/27/17 04/27/17 23:52 05:40 05:40 WBC RBC 3.22 L Hgb 10.0 L Hct 29.9 L MCV MCH Plt Count Lymph % (Auto) [place] % (Auto) Eos % (Auto) Baso % (Auto) Lymph # Baso # Seg Neutrophils % 76.6 H Lymphocytes % (Manual) Monocytes % (Manual) Nucleated RBC % Seg Neutrophils # Seg Neutrophils # Man Monocytes # (Manual) PT INR Activated Clotting Time POC ABG pH POC ABG pCO2 POC ABG pO2 Sodium Potassium Chloride Carbon Dioxide BUN Creatinine Glucose POC Glucose 140 H Calcium Magnesium Direct Bilirubin AST 66 H ALT 137 H Alkaline Phosphatase 169 H Total Creatine Kinase CK-MB (CK-2) CK-MB (CK-2) Rel Index Troponin T C-Reactive Protein Total Protein 6.2 L Albumin 2.6 L Triglycerides Ur Specific [place] Urine WBC (Auto) Miscellaneous Test 04/27/17 04/27/17 04/27/17 05:40 06:10 11:13 WBC RBC Hgb Hct MCV MCH Plt Count Lymph % (Auto) [place] % (Auto) Eos % (Auto) Baso % (Auto) Lymph # Baso # Seg Neutrophils % Lymphocytes % (Manual) Monocytes % (Manual) Nucleated RBC % Seg Neutrophils # Seg Neutrophils # Man Monocytes # (Manual) PT INR Activated Clotting Time POC ABG pH POC ABG pCO2 POC ABG pO2 Sodium Potassium Chloride Carbon Dioxide BUN Creatinine 0.2 L Glucose 139 H POC Glucose 130 H 151 H Calcium Magnesium Direct Bilirubin AST ALT Alkaline Phosphatase Total Creatine Kinase CK-MB (CK-2) CK-MB (CK-2) Rel Index Troponin T C-Reactive Protein Total Protein Albumin Triglycerides Ur Specific [place] Urine WBC (Auto) Miscellaneous Test 04/27/17 04/27/17 04/28/17 17:37 23:19 05:24 WBC RBC Hgb Hct MCV MCH Plt Count Lymph % (Auto) [place] % (Auto) Eos % (Auto) Baso % (Auto) Lymph # Baso # Seg Neutrophils % Lymphocytes % (Manual) Monocytes % (Manual) Nucleated RBC % Seg Neutrophils # Seg Neutrophils # Man Monocytes # (Manual) PT INR Activated Clotting Time POC ABG pH POC ABG pCO2 POC ABG pO2 Sodium Potassium Chloride Carbon Dioxide BUN Creatinine Glucose POC Glucose 159 H 130 H 132 H Calcium Magnesium Direct Bilirubin AST ALT Alkaline Phosphatase Total Creatine Kinase CK-MB (CK-2) CK-MB (CK-2) Rel Index Troponin T C-Reactive Protein Total Protein Albumin Triglycerides Ur Specific [place] Urine WBC (Auto) Miscellaneous Test 04/28/17 04/28/17 04/28/17 11:15 17:38 23:23 WBC RBC Hgb Hct MCV MCH Plt Count Lymph % (Auto) [place] % (Auto) Eos % (Auto) Baso % (Auto) Lymph # Baso # Seg Neutrophils % Lymphocytes % (Manual) Monocytes % (Manual) Nucleated RBC % Seg Neutrophils # Seg Neutrophils # Man Monocytes # (Manual) PT INR Activated Clotting Time POC ABG pH POC ABG pCO2 POC ABG pO2 Sodium Potassium Chloride Carbon Dioxide BUN Creatinine Glucose POC Glucose 162 H 133 H 138 H Calcium Magnesium Direct Bilirubin AST ALT Alkaline Phosphatase Total Creatine Kinase CK-MB (CK-2) CK-MB (CK-2) Rel Index Troponin T C-Reactive Protein Total Protein Albumin Triglycerides Ur Specific [place] Urine WBC (Auto) Miscellaneous Test 04/29/17 04/29/17 04/29/17 05:15 12:55 17:21 WBC RBC Hgb Hct MCV MCH Plt Count Lymph % (Auto) [place] % (Auto) Eos % (Auto) Baso % (Auto) Lymph # Baso # Seg Neutrophils % Lymphocytes % (Manual) Monocytes % (Manual) Nucleated RBC % Seg Neutrophils # Seg Neutrophils # Man Monocytes # (Manual) PT INR Activated Clotting Time POC ABG pH POC ABG pCO2 POC ABG pO2 Sodium Potassium Chloride Carbon Dioxide BUN Creatinine Glucose POC Glucose 135 H 127 H 138 H Calcium Magnesium Direct Bilirubin AST ALT Alkaline Phosphatase Total Creatine Kinase CK-MB (CK-2) CK-MB (CK-2) Rel Index Troponin T C-Reactive Protein Total Protein Albumin Triglycerides Ur Specific [place] Urine WBC (Auto) Miscellaneous Test 04/29/17 04/30/17 04/30/17 23:52 04:55 12:22 WBC RBC Hgb Hct MCV MCH Plt Count Lymph % (Auto) [place] % (Auto) Eos % (Auto) Baso % (Auto) Lymph # Baso # Seg Neutrophils % Lymphocytes % (Manual) Monocytes % (Manual) Nucleated RBC % Seg Neutrophils # Seg Neutrophils # Man Monocytes # (Manual) PT INR Activated Clotting Time POC ABG pH POC ABG pCO2 POC ABG pO2 Sodium Potassium Chloride Carbon Dioxide BUN Creatinine Glucose POC Glucose 142 H 146 H 132 H Calcium Magnesium Direct Bilirubin AST ALT Alkaline Phosphatase Total Creatine Kinase CK-MB (CK-2) CK-MB (CK-2) Rel Index Troponin T C-Reactive Protein Total Protein Albumin Triglycerides Ur Specific [place] Urine WBC (Auto) Miscellaneous Test 04/30/17 04/30/17 04/30/17 14:25 17:47 18:20 WBC RBC Hgb Hct MCV MCH Plt Count Lymph % (Auto) [place] % (Auto) Eos % (Auto) Baso % (Auto) Lymph # Baso # Seg Neutrophils % Lymphocytes % (Manual) Monocytes % (Manual) Nucleated RBC % Seg Neutrophils # Seg Neutrophils # Man Monocytes # (Manual) PT INR Activated Clotting Time POC ABG pH 7.551 H POC ABG pCO2 32.7 L POC ABG pO2 Sodium Potassium Chloride Carbon Dioxide BUN 21 H Creatinine 0.2 L Glucose 141 H POC Glucose 139 H Calcium Magnesium Direct Bilirubin AST ALT Alkaline Phosphatase Total Creatine Kinase CK-MB (CK-2) CK-MB (CK-2) Rel Index Troponin T C-Reactive Protein Total Protein Albumin Triglycerides Ur Specific [place] Urine WBC (Auto) Miscellaneous Test 05/01/17 05/01/17 05/01/17 01:26 05:30 05:30 WBC RBC 3.49 L Hgb 10.3 L Hct 31.9 L MCV MCH Plt Count Lymph % (Auto) [place] % (Auto) 8.1 H Eos % (Auto) Baso % (Auto) Lymph # Baso # Seg Neutrophils % 71.3 H Lymphocytes % (Manual) Monocytes % (Manual) Nucleated RBC % Seg Neutrophils # Seg Neutrophils # Man Monocytes # (Manual) PT INR Activated Clotting Time POC ABG pH POC ABG pCO2 POC ABG pO2 Sodium 136 L Potassium Chloride 97.6 L Carbon Dioxide BUN Creatinine 0.2 L Glucose 123 H POC Glucose 116 H Calcium Magnesium Direct Bilirubin AST 71 H ALT 125 H Alkaline Phosphatase 158 H Total Creatine Kinase CK-MB (CK-2) CK-MB (CK-2) Rel Index Troponin T C-Reactive Protein Total Protein Albumin 2.6 L Triglycerides Ur Specific [place] Urine WBC (Auto) Miscellaneous Test 05/01/17 05/01/17 05/02/17 11:59 17:23 00:08 WBC RBC Hgb Hct MCV MCH Plt Count Lymph % (Auto) [place] % (Auto) Eos % (Auto) Baso % (Auto) Lymph # Baso # Seg Neutrophils % Lymphocytes % (Manual) Monocytes % (Manual) Nucleated RBC % Seg Neutrophils # Seg Neutrophils # Man Monocytes # (Manual) PT INR Activated Clotting Time POC ABG pH POC ABG pCO2 POC ABG pO2 Sodium Potassium Chloride Carbon Dioxide BUN Creatinine Glucose POC Glucose 118 H 144 H 122 H Calcium Magnesium Direct Bilirubin AST ALT Alkaline Phosphatase Total Creatine Kinase CK-MB (CK-2) CK-MB (CK-2) Rel Index Troponin T C-Reactive Protein Total Protein Albumin Triglycerides Ur Specific [place] Urine WBC (Auto) Miscellaneous Test 05/02/17 05/02/17 05/02/17 05:50 11:21 17:48 WBC RBC Hgb Hct MCV MCH Plt Count Lymph % (Auto) [place] % (Auto) Eos % (Auto) Baso % (Auto) Lymph # Baso # Seg Neutrophils % Lymphocytes % (Manual) Monocytes % (Manual) Nucleated RBC % Seg Neutrophils # Seg Neutrophils # Man Monocytes # (Manual) PT INR Activated Clotting Time POC ABG pH POC ABG pCO2 POC ABG pO2 Sodium Potassium Chloride Carbon Dioxide BUN Creatinine Glucose POC Glucose 120 H 121 H 140 H Calcium Magnesium Direct Bilirubin AST ALT Alkaline Phosphatase Total Creatine Kinase CK-MB (CK-2) CK-MB (CK-2) Rel Index Troponin T C-Reactive Protein Total Protein Albumin Triglycerides Ur Specific [place] Urine WBC (Auto) Miscellaneous Test 05/02/17 05/03/17 05/03/17 23:12 05:35 11:52 WBC RBC Hgb Hct MCV MCH Plt Count Lymph % (Auto) [place] % (Auto) Eos % (Auto) Baso % (Auto) Lymph # Baso # Seg Neutrophils % Lymphocytes % (Manual) Monocytes % (Manual) Nucleated RBC % Seg Neutrophils # Seg Neutrophils # Man Monocytes # (Manual) PT INR Activated Clotting Time POC ABG pH POC ABG pCO2 POC ABG pO2 Sodium Potassium Chloride Carbon Dioxide BUN Creatinine Glucose POC Glucose 128 H 113 H 126 H Calcium Magnesium Direct Bilirubin AST ALT Alkaline Phosphatase Total Creatine Kinase CK-MB (CK-2) CK-MB (CK-2) Rel Index Troponin T C-Reactive Protein Total Protein Albumin Triglycerides Ur Specific [place] Urine WBC (Auto) Miscellaneous Test 05/03/17 05/03/17 05/04/17 17:29 23:26 04:55 WBC RBC Hgb Hct MCV MCH Plt Count Lymph % (Auto) [place] % (Auto) Eos % (Auto) Baso % (Auto) Lymph # Baso # Seg Neutrophils % Lymphocytes % (Manual) Monocytes % (Manual) Nucleated RBC % Seg Neutrophils # Seg Neutrophils # Man Monocytes # (Manual) PT INR Activated Clotting Time POC ABG pH POC ABG pCO2 POC ABG pO2 Sodium Potassium Chloride Carbon Dioxide BUN Creatinine Glucose POC Glucose 141 H 129 H 126 H Calcium Magnesium Direct Bilirubin AST ALT Alkaline Phosphatase Total Creatine Kinase CK-MB (CK-2) CK-MB (CK-2) Rel Index Troponin T C-Reactive Protein Total Protein Albumin Triglycerides Ur Specific [place] Urine WBC (Auto) Miscellaneous Test 05/04/17 05/04/17 05/05/17 12:09 17:46 00:06 WBC RBC Hgb Hct MCV MCH Plt Count Lymph % (Auto) [place] % (Auto) Eos % (Auto) Baso % (Auto) Lymph # Baso # Seg Neutrophils % Lymphocytes % (Manual) Monocytes % (Manual) Nucleated RBC % Seg Neutrophils # Seg Neutrophils # Man Monocytes # (Manual) PT INR Activated Clotting Time POC ABG pH POC ABG pCO2 POC ABG pO2 Sodium Potassium Chloride Carbon Dioxide BUN Creatinine Glucose POC Glucose 125 H 125 H 110 H Calcium Magnesium Direct Bilirubin AST ALT Alkaline Phosphatase Total Creatine Kinase CK-MB (CK-2) CK-MB (CK-2) Rel Index Troponin T C-Reactive Protein Total Protein Albumin Triglycerides Ur Specific [place] Urine WBC (Auto) Miscellaneous Test 05/05/17 05/05/17 05/05/17 05:48 11:41 16:19 WBC RBC Hgb Hct MCV MCH Plt Count Lymph % (Auto) [place] % (Auto) Eos % (Auto) Baso % (Auto) Lymph # Baso # Seg Neutrophils % Lymphocytes % (Manual) Monocytes % (Manual) Nucleated RBC % Seg Neutrophils # Seg Neutrophils # Man Monocytes # (Manual) PT INR Activated Clotting Time POC ABG pH POC ABG pCO2 POC ABG pO2 Sodium Potassium Chloride Carbon Dioxide BUN Creatinine Glucose POC Glucose 124 H 122 H 120 H Calcium Magnesium Direct Bilirubin AST ALT Alkaline Phosphatase Total Creatine Kinase CK-MB (CK-2) CK-MB (CK-2) Rel Index Troponin T C-Reactive Protein Total Protein Albumin Triglycerides Ur Specific [place] Urine WBC (Auto) Miscellaneous Test 05/06/17 05/06/17 05/06/17 00:16 05:47 11:42 WBC RBC Hgb Hct MCV MCH Plt Count Lymph % (Auto) [place] % (Auto) Eos % (Auto) Baso % (Auto) Lymph # Baso # Seg Neutrophils % Lymphocytes % (Manual) Monocytes % (Manual) Nucleated RBC % Seg Neutrophils # Seg Neutrophils # Man Monocytes # (Manual) PT INR Activated Clotting Time POC ABG pH POC ABG pCO2 POC ABG pO2 Sodium Potassium Chloride Carbon Dioxide BUN Creatinine Glucose POC Glucose 110 H 142 H 120 H Calcium Magnesium Direct Bilirubin AST ALT Alkaline Phosphatase Total Creatine Kinase CK-MB (CK-2) CK-MB (CK-2) Rel Index Troponin T C-Reactive Protein Total Protein Albumin Triglycerides Ur Specific [place] Urine WBC (Auto) Miscellaneous Test 05/06/17 05/07/17 05/07/17 17:46 00:07 05:28 WBC RBC Hgb Hct MCV MCH Plt Count Lymph % (Auto) [place] % (Auto) Eos % (Auto) Baso % (Auto) Lymph # Baso # Seg Neutrophils % Lymphocytes % (Manual) Monocytes % (Manual) Nucleated RBC % Seg Neutrophils # Seg Neutrophils # Man Monocytes # (Manual) PT INR Activated Clotting Time POC ABG pH POC ABG pCO2 POC ABG pO2 Sodium Potassium Chloride Carbon Dioxide BUN Creatinine Glucose POC Glucose 127 H 145 H 124 H Calcium Magnesium Direct Bilirubin AST ALT Alkaline Phosphatase Total Creatine Kinase CK-MB (CK-2) CK-MB (CK-2) Rel Index Troponin T C-Reactive Protein Total Protein Albumin Triglycerides Ur Specific [place] Urine WBC (Auto) Miscellaneous Test 05/07/17 05/07/17 05/08/17 11:17 17:14 00:03 WBC RBC Hgb Hct MCV MCH Plt Count Lymph % (Auto) [place] % (Auto) Eos % (Auto) Baso % (Auto) Lymph # Baso # Seg Neutrophils % Lymphocytes % (Manual) Monocytes % (Manual) Nucleated RBC % Seg Neutrophils # Seg Neutrophils # Man Monocytes # (Manual) PT INR Activated Clotting Time POC ABG pH POC ABG pCO2 POC ABG pO2 Sodium Potassium Chloride Carbon Dioxide BUN Creatinine Glucose POC Glucose 144 H 125 H 122 H Calcium Magnesium Direct Bilirubin AST ALT Alkaline Phosphatase Total Creatine Kinase CK-MB (CK-2) CK-MB (CK-2) Rel Index Troponin T C-Reactive Protein Total Protein Albumin Triglycerides Ur Specific [place] Urine WBC (Auto) Miscellaneous Test 05/08/17 05/08/17 05/08/17 05:43 12:07 18:02 WBC RBC Hgb Hct MCV MCH Plt Count Lymph % (Auto) [place] % (Auto) Eos % (Auto) Baso % (Auto) Lymph # Baso # Seg Neutrophils % Lymphocytes % (Manual) Monocytes % (Manual) Nucleated RBC % Seg Neutrophils # Seg Neutrophils # Man Monocytes # (Manual) PT INR Activated Clotting Time POC ABG pH POC ABG pCO2 POC ABG pO2 Sodium Potassium Chloride Carbon Dioxide BUN Creatinine Glucose POC Glucose 117 H 114 H 129 H Calcium Magnesium Direct Bilirubin AST ALT Alkaline Phosphatase Total Creatine Kinase CK-MB (CK-2) CK-MB (CK-2) Rel Index Troponin T C-Reactive Protein Total Protein Albumin Triglycerides Ur Specific [place] Urine WBC (Auto) Miscellaneous Test 05/08/17 05/09/17 05/09/17 23:53 04:19 05:14 WBC RBC Hgb Hct MCV MCH Plt Count Lymph % (Auto) [place] % (Auto) Eos % (Auto) Baso % (Auto) Lymph # Baso # Seg Neutrophils % Lymphocytes % (Manual) Monocytes % (Manual) Nucleated RBC % Seg Neutrophils # Seg Neutrophils # Man Monocytes # (Manual) PT INR Activated Clotting Time POC ABG pH 7.524 H POC ABG pCO2 34.7 L POC ABG pO2 107 H Sodium Potassium Chloride Carbon Dioxide BUN Creatinine Glucose POC Glucose 125 H 118 H Calcium Magnesium Direct Bilirubin AST ALT Alkaline Phosphatase Total Creatine Kinase CK-MB (CK-2) CK-MB (CK-2) Rel Index Troponin T C-Reactive Protein Total Protein Albumin Triglycerides Ur Specific [place] Urine WBC (Auto) Miscellaneous Test
--- NOTE | 2017-05-10 09:41 | Vascular Lab Report ---
UPPER EXTREMITY VENOUS DUPLEX: REASON FOR EXAM: Pain and swelling of the upper extremities COMMENTS ON THE RIGHT: Superficial venous thrombosis is seen in the basilic vein above and below the elbow. This thrombus extends into the axillary vein and up into the subclavian vein was partially occluded.. The remaining veins visualized are freely compressible without evidence of internal echogenicity. Spontaneous and phasic flow is reduced proximally. COMMENTS ON THE LEFT: All arm veins visualized are freely compressible without evidence of internal echogenicity. The subclavian and internal jugular veins are free of thrombus. Flow is spontaneous and phasic throughout. IMPRESSION: Acute deep venous thrombosis of the right upper extremity extending from the subclavian vein to the axillary vein into the basilic vein superficially above and below the elbow. No evidence of acute deep venous thrombosis in the left upper
[2017-05-10] MEDS: PLAVIX PO SCH (10:45)
[2017-05-10] MEDS: ASPIRIN PO SCH (10:45)
[2017-05-10] MEDS: PROTONIX FEEDTUBE SCH (10:45)
[2017-05-10] MEDS: ELIQUIS PO SCH ×2 (10:45→22:12)
[2017-05-10] MEDS: LOPRESSOR PO SCH (10:46)
[2017-05-10] MEDS: CORDARONE PO SCH ×2 (10:47→22:11)
[2017-05-10] MEDS: ZESTRIL PO SCH (10:47)
--- NOTE | 2017-05-10 13:49 | Progress Note ---
Assessment and Plan 46 year old male with anoxic brain injury, due to cardiac arrest on 03/29/2017. He continues unresponsive. The last EEG per Dr. Perkins reveals no definite cortical activity. CT reveals extensive ischemic damage. 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 This is a very sad case as the patient is so young and had seemingly no health issues before this event. Prognosis is extremely poor. Awaiting progression to a T-piece. Plan - Will watch for family to discuss case Continue supportive care as is. Encourage family to place as DNR. Plan on family meeting at 1pm. Monday05/12/17. Subjective Date of service: 05/10/17 Principal diagnosis: coma,ARV,s/p arrest Interval history: This 46 year old male sustained a witnessed carduac arrest on 03/29/2017, was brought to ER and transferred to [facility] for care of acute GA. 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 Echocardiogram reveals EF of 30 to 35%. A CT scan of the brain on 04/04/17 revealed diffuse edema consistent with anoxic injury. A repeat scan on 05/05/2017 revealed resolution of the edema with atrophy and laminar necrosis in parietal and occipital lobes consistent with anoxic injury and ischemic damage. The patient has undergone trach. and PEG placement. His exam has been stable with no response, occasional withdrawal to pain, eyes open with spontaneous blinking. 05/10/17 Today the patient continues the same. Eyes are closed, downward position. Unresponsive, weaning off ventilator. Objective - Exam Narrative Exam: HEENT - pupils are fixed at 4 mm. face symmetric. neck supple. Chest - clear to auscultation. Heart - reg. rate. normal S-1,S-2. Abdomen - soft, nontender. normal bowel sounds. Extremities - no edema. no lesions. Neuro - no response to verbal stimuli. Withdraws to painful stimuli, shrugs to chest rub. CN's - eyes are yolked, seem to independently move in all directions. blinks spontaneously, but not to threat. Does not follow a flashlight. face is symmetric. Corneals not reactive. Swallows and yawns spontaneously. Motor - no spontaneous movement. Withdraws to painful stimuli. Reflexes - +3 on the rt., +2 on the lt. Sensory - withdraws to pain. to pain. Cerebellar - cannot assess. - Vital Sign Vital Signs - 12hr 05/10/17 05/10/17 05/10/17 02:00 02:30 03:00 Temperature Pulse Rate 99 H 90 86 Pulse Rate [ From Monitor] Respiratory 18 19 16 Rate Blood Pressure 93/59 99/63 94/60 O2 Sat by Pulse 100 Oximetry O2 Sat by Pulse Oximetry [ Assessment] 05/10/17 05/10/17 05/10/17 03:30 04:00 04:30 Temperature Pulse Rate 87 83 85 Pulse Rate [ From Monitor] Respiratory 19 19 15 Rate Blood Pressure 94/59 94/56 90/59 O2 Sat by Pulse 100 94 Oximetry O2 Sat by Pulse Oximetry [ Assessment] 05/10/17 05/10/17 05/10/17 04:54 05:00 05:30 Temperature Pulse Rate 84 87 87 Pulse Rate [ From Monitor] Respiratory 20 21 Rate Blood Pressure 90/59 95/55 92/52 O2 Sat by Pulse 94 90 91 Oximetry O2 Sat by Pulse 94 Oximetry [ Assessment] 05/10/17 05/10/17 05/10/17 06:00 06:15 06:30 Temperature Pulse Rate 88 88 Pulse Rate [ From Monitor] Respiratory 19 19 17 Rate Blood Pressure 92/50 92/51 O2 Sat by Pulse 89 95 88 Oximetry O2 Sat by Pulse Oximetry [ Assessment] 05/10/17 05/10/17 05/10/17 07:00 07:22 07:28 Temperature Pulse Rate 90 91 H Pulse Rate [ From Monitor] Respiratory 18 Rate Blood Pressure 98/54 98/54 O2 Sat by Pulse 89 Oximetry O2 Sat by Pulse 88 Oximetry [ Assessment] 05/10/17 05/10/17 05/10/17 07:30 07:51 07:52 Temperature 98.1 F Pulse Rate 90 Pulse Rate [ 90 From Monitor] Respiratory 15 21 Rate Blood Pressure 104/63 O2 Sat by Pulse 89 99 Oximetry O2 Sat by Pulse Oximetry [ Assessment] 05/10/17 05/10/17 05/10/17 08:00 08:30 09:00 Temperature Pulse Rate 87 83 84 Pulse Rate [ From Monitor] Respiratory 19 17 19 Rate Blood Pressure 91/52 89/50 92/54 O2 Sat by Pulse 98 Oximetry O2 Sat by Pulse Oximetry [ Assessment] 05/10/17 05/10/17 05/10/17 09:30 10:00 10:30 Temperature Pulse Rate 81 84 81 Pulse Rate [ From Monitor] Respiratory 15 18 18 Rate Blood Pressure 97/58 97/58 92/60 O2 Sat by Pulse 99 100 Oximetry O2 Sat by Pulse Oximetry [ Assessment] 05/10/17 05/10/17 05/10/17 10:46 10:47 11:00 Temperature Pulse Rate 82 82 82 Pulse Rate [ From Monitor] Respiratory 17 Rate Blood Pressure 92/60 92/60 92/57 O2 Sat by Pulse Oximetry O2 Sat by Pulse Oximetry [ Assessment] 05/10/17 05/10/17 05/10/17 11:30 12:00 12:30 Temperature 97.1 F L Pulse Rate 79 66 74 Pulse Rate [ From Monitor] Respiratory 20 18 17 Rate Blood Pressure 90/55 94/62 93/50 O2 Sat by Pulse 100 100 100 Oximetry O2 Sat by Pulse Oximetry [ Assessment] 05/10/17 13:00 Temperature Pulse Rate 79 Pulse Rate [ From Monitor] Respiratory 20 Rate Blood Pressure 90/50 O2 Sat by Pulse 97 Oximetry O2 Sat by Pulse Oximetry [ Assessment] - Laboratory Findings CBC and BMP: 05/01/17 05:30 05/01/17 05:30 Abnormal Lab Findings: Abnormal Labs 03/29/17 03/29/17 03/29/17 11:35 11:35 11:40 WBC RBC Hgb Hct MCV 98 H MCH 33 H Plt Count Lymph % (Auto) [place] % (Auto) Eos % (Auto) Baso % (Auto) Lymph # Baso # Seg Neutrophils % Lymphocytes % (Manual) Monocytes % (Manual) 9.0 H Nucleated RBC % 1.0 H Seg Neutrophils # Seg Neutrophils # Man Monocytes # (Manual) 0.9 H PT 15.8 H INR 1.20 H Activated Clotting Time POC ABG pH POC ABG pCO2 POC ABG pO2 Sodium Potassium 2.7 L* Chloride 95.3 L Carbon Dioxide 17 L BUN Creatinine Glucose 435 H POC Glucose Calcium Magnesium Direct Bilirubin AST ALT Alkaline Phosphatase Total Creatine Kinase CK-MB (CK-2) CK-MB (CK-2) Rel Index Troponin T C-Reactive Protein Total Protein 6.1 L Albumin 3.5 L Triglycerides Ur Specific [place] Urine WBC (Auto) Miscellaneous Test 03/29/17 03/29/17 03/29/17 12:34 13:10 13:25 WBC RBC Hgb Hct MCV MCH Plt Count Lymph % (Auto) [place] % (Auto) Eos % (Auto) Baso % (Auto) Lymph # Baso # Seg Neutrophils % Lymphocytes % (Manual) Monocytes % (Manual) Nucleated RBC % Seg Neutrophils # Seg Neutrophils # Man Monocytes # (Manual) PT INR Activated Clotting Time 142 H 169 H 175 H POC ABG pH POC ABG pCO2 POC ABG pO2 Sodium Potassium Chloride Carbon Dioxide BUN Creatinine Glucose POC Glucose Calcium Magnesium Direct Bilirubin AST ALT Alkaline Phosphatase Total Creatine Kinase CK-MB (CK-2) CK-MB (CK-2) Rel Index Troponin T C-Reactive Protein Total Protein Albumin Triglycerides Ur Specific [place] Urine WBC (Auto) Miscellaneous Test 03/29/17 03/29/17 03/29/17 14:50 15:18 19:52 WBC RBC Hgb Hct MCV MCH Plt Count Lymph % (Auto) [place] % (Auto) Eos % (Auto) Baso % (Auto) Lymph # Baso # Seg Neutrophils % Lymphocytes % (Manual) Monocytes % (Manual) Nucleated RBC % Seg Neutrophils # Seg Neutrophils # Man Monocytes # (Manual) PT INR Activated Clotting Time 175 H POC ABG pH 7.293 L POC ABG pCO2 POC ABG pO2 602 H Sodium Potassium Chloride Carbon Dioxide BUN Creatinine Glucose POC Glucose Calcium Magnesium Direct Bilirubin AST ALT Alkaline Phosphatase Total Creatine Kinase 7263 H CK-MB (CK-2) > 300.0 H CK-MB (CK-2) Rel Index 4.1 H Troponin T 8.080 H* D C-Reactive Protein Total Protein Albumin Triglycerides 195 H Ur Specific [place] Urine WBC (Auto) Miscellaneous Test 03/30/17 03/30/17 03/30/17 03:50 03:50 06:19 WBC 19.5 H RBC Hgb Hct MCV MCH Plt Count Lymph % (Auto) [place] % (Auto) Eos % (Auto) Baso % (Auto) Lymph # Baso # Seg Neutrophils % Lymphocytes % (Manual) 7.0 L Monocytes % (Manual) Nucleated RBC % Seg Neutrophils # Seg Neutrophils # Man 12.7 H Monocytes # (Manual) 1.4 H PT INR Activated Clotting Time POC ABG pH POC ABG pCO2 28.2 L POC ABG pO2 108 H Sodium Potassium Chloride 108.9 H Carbon Dioxide 15 L BUN 25 H Creatinine Glucose 158 H POC Glucose Calcium 8.1 L Magnesium Direct Bilirubin AST ALT Alkaline Phosphatase Total Creatine Kinase 7963 H CK-MB (CK-2) > 300.0 H CK-MB (CK-2) Rel Index Troponin T 6.850 H* C-Reactive Protein Total Protein Albumin Triglycerides Ur Specific [place] Urine WBC (Auto) Miscellaneous Test 03/30/17 03/30/17 03/31/17 09:45 16:04 02:19 WBC RBC Hgb Hct MCV MCH Plt Count Lymph % (Auto) [place] % (Auto) Eos % (Auto) Baso % (Auto) Lymph # Baso # Seg Neutrophils % Lymphocytes % (Manual) Monocytes % (Manual) Nucleated RBC % Seg Neutrophils # Seg Neutrophils # Man Monocytes # (Manual) PT INR Activated Clotting Time POC ABG pH POC ABG pCO2 POC ABG pO2 Sodium Potassium Chloride Carbon Dioxide BUN Creatinine Glucose POC Glucose 137 H Calcium Magnesium Direct Bilirubin AST ALT Alkaline Phosphatase Total Creatine Kinase CK-MB (CK-2) CK-MB (CK-2) Rel Index Troponin T C-Reactive Protein 21.80 H Total Protein Albumin Triglycerides Ur Specific [place] 1.031 H Urine WBC (Auto) Miscellaneous Test 03/31/17 03/31/17 03/31/17 03:57 06:54 09:22 WBC RBC Hgb Hct MCV MCH Plt Count Lymph % (Auto) [place] % (Auto) Eos % (Auto) Baso % (Auto) Lymph # Baso # Seg Neutrophils % Lymphocytes % (Manual) Monocytes % (Manual) Nucleated RBC % Seg Neutrophils # Seg Neutrophils # Man Monocytes # (Manual) PT INR Activated Clotting Time POC ABG pH 7.475 H POC ABG pCO2 25.4 L POC ABG pO2 62 L Sodium Potassium Chloride Carbon Dioxide 19 L BUN 22 H Creatinine 0.6 L Glucose 148 H POC Glucose 143 H Calcium 8.3 L Magnesium Direct Bilirubin AST ALT Alkaline Phosphatase Total Creatine Kinase CK-MB (CK-2) CK-MB (CK-2) Rel Index Troponin T C-Reactive Protein Total Protein Albumin Triglycerides Ur Specific [place] Urine WBC (Auto) Miscellaneous Test 03/31/17 03/31/17 03/31/17 11:40 17:47 23:38 WBC RBC Hgb Hct MCV MCH Plt Count Lymph % (Auto) [place] % (Auto) Eos % (Auto) Baso % (Auto) Lymph # Baso # Seg Neutrophils % Lymphocytes % (Manual) Monocytes % (Manual) Nucleated RBC % Seg Neutrophils # Seg Neutrophils # Man Monocytes # (Manual) PT INR Activated Clotting Time POC ABG pH POC ABG pCO2 POC ABG pO2 Sodium Potassium Chloride Carbon Dioxide BUN Creatinine Glucose POC Glucose 127 H 137 H 148 H Calcium Magnesium Direct Bilirubin AST ALT Alkaline Phosphatase Total Creatine Kinase CK-MB (CK-2) CK-MB (CK-2) Rel Index Troponin T C-Reactive Protein Total Protein Albumin Triglycerides Ur Specific [place] Urine WBC (Auto) Miscellaneous Test 04/01/17 04/01/17 04/01/17 04:29 05:01 11:54 WBC RBC Hgb Hct MCV MCH Plt Count Lymph % (Auto) [place] % (Auto) Eos % (Auto) Baso % (Auto) Lymph # Baso # Seg Neutrophils % Lymphocytes % (Manual) Monocytes % (Manual) Nucleated RBC % Seg Neutrophils # Seg Neutrophils # Man Monocytes # (Manual) PT INR Activated Clotting Time POC ABG pH 7.513 H POC ABG pCO2 22.1 L POC ABG pO2 64 L Sodium Potassium Chloride Carbon Dioxide BUN Creatinine Glucose POC Glucose 121 H Calcium Magnesium Direct Bilirubin AST ALT Alkaline Phosphatase Total Creatine Kinase CK-MB (CK-2) CK-MB (CK-2) Rel Index Troponin T C-Reactive Protein Total Protein Albumin Triglycerides 151 H Ur Specific [place] Urine WBC (Auto) Miscellaneous Test 04/01/17 04/02/17 04/02/17 18:17 00:11 04:52 WBC RBC Hgb Hct MCV MCH Plt Count Lymph % (Auto) [place] % (Auto) Eos % (Auto) Baso % (Auto) Lymph # Baso # Seg Neutrophils % Lymphocytes % (Manual) Monocytes % (Manual) Nucleated RBC % Seg Neutrophils # Seg Neutrophils # Man Monocytes # (Manual) PT INR Activated Clotting Time POC ABG pH 7.524 H POC ABG pCO2 25.5 L POC ABG pO2 66 L Sodium Potassium Chloride Carbon Dioxide BUN Creatinine Glucose POC Glucose 117 H 122 H Calcium Magnesium Direct Bilirubin AST ALT Alkaline Phosphatase Total Creatine Kinase CK-MB (CK-2) CK-MB (CK-2) Rel Index Troponin T C-Reactive Protein Total Protein Albumin Triglycerides Ur Specific [place] Urine WBC (Auto) Miscellaneous Test 04/02/17 04/02/17 04/02/17 05:18 10:41 12:19 WBC RBC Hgb Hct MCV MCH Plt Count Lymph % (Auto) [place] % (Auto) Eos % (Auto) Baso % (Auto) Lymph # Baso # Seg Neutrophils % Lymphocytes % (Manual) Monocytes % (Manual) Nucleated RBC % Seg Neutrophils # Seg Neutrophils # Man Monocytes # (Manual) PT INR Activated Clotting Time POC ABG pH 7.534 H POC ABG pCO2 27.4 L POC ABG pO2 Sodium Potassium Chloride Carbon Dioxide BUN Creatinine Glucose POC Glucose 132 H 129 H Calcium Magnesium Direct Bilirubin AST ALT Alkaline Phosphatase Total Creatine Kinase CK-MB (CK-2) CK-MB (CK-2) Rel Index Troponin T C-Reactive Protein Total Protein Albumin Triglycerides Ur Specific [place] Urine WBC (Auto) Miscellaneous Test 04/02/17 04/03/17 04/03/17 18:05 00:08 05:09 WBC RBC Hgb Hct MCV MCH Plt Count Lymph % (Auto) [place] % (Auto) Eos % (Auto) Baso % (Auto) Lymph # Baso # Seg Neutrophils % Lymphocytes % (Manual) Monocytes % (Manual) Nucleated RBC % Seg Neutrophils # Seg Neutrophils # Man Monocytes # (Manual) PT INR Activated Clotting Time POC ABG pH 7.455 H POC ABG pCO2 33.2 L POC ABG pO2 120 H Sodium Potassium Chloride Carbon Dioxide BUN Creatinine Glucose POC Glucose 136 H 128 H Calcium Magnesium Direct Bilirubin AST ALT Alkaline Phosphatase Total Creatine Kinase CK-MB (CK-2) CK-MB (CK-2) Rel Index Troponin T C-Reactive Protein Total Protein Albumin Triglycerides Ur Specific [place] Urine WBC (Auto) Miscellaneous Test 04/03/17 04/03/17 04/03/17 06:32 11:54 12:16 WBC 11.9 H RBC Hgb Hct MCV MCH Plt Count 125 L Lymph % (Auto) 4.8 L [place] % (Auto) Eos % (Auto) Baso % (Auto) Lymph # 0.6 L Baso # Seg Neutrophils % 86.7 H Lymphocytes % (Manual) Monocytes % (Manual) Nucleated RBC % Seg Neutrophils # 10.3 H Seg Neutrophils # Man Monocytes # (Manual) PT INR Activated Clotting Time POC ABG pH POC ABG pCO2 POC ABG pO2 Sodium Potassium Chloride Carbon Dioxide BUN Creatinine Glucose POC Glucose 138 H 143 H Calcium Magnesium Direct Bilirubin AST ALT Alkaline Phosphatase Total Creatine Kinase CK-MB (CK-2) CK-MB (CK-2) Rel Index Troponin T C-Reactive Protein Total Protein Albumin Triglycerides Ur Specific [place] Urine WBC (Auto) Miscellaneous Test 04/03/17 04/03/17 04/04/17 17:33 23:59 04:34 WBC RBC Hgb Hct MCV MCH Plt Count Lymph % (Auto) [place] % (Auto) Eos % (Auto) Baso % (Auto) Lymph # Baso # Seg Neutrophils % Lymphocytes % (Manual) Monocytes % (Manual) Nucleated RBC % Seg Neutrophils # Seg Neutrophils # Man Monocytes # (Manual) PT INR Activated Clotting Time POC ABG pH 7.457 H POC ABG pCO2 29.8 L POC ABG pO2 76 L Sodium Potassium Chloride Carbon Dioxide BUN Creatinine Glucose POC Glucose 130 H 155 H Calcium Magnesium Direct Bilirubin AST ALT Alkaline Phosphatase Total Creatine Kinase CK-MB (CK-2) CK-MB (CK-2) Rel Index Troponin T C-Reactive Protein Total Protein Albumin Triglycerides Ur Specific [place] Urine WBC (Auto) Miscellaneous Test 04/04/17 04/04/17 04/04/17 05:27 12:22 18:18 WBC RBC Hgb Hct MCV MCH Plt Count Lymph % (Auto) [place] % (Auto) Eos % (Auto) Baso % (Auto) Lymph # Baso # Seg Neutrophils % Lymphocytes % (Manual) Monocytes % (Manual) Nucleated RBC % Seg Neutrophils # Seg Neutrophils # Man Monocytes # (Manual) PT INR Activated Clotting Time POC ABG pH POC ABG pCO2 POC ABG pO2 Sodium Potassium Chloride Carbon Dioxide BUN Creatinine Glucose POC Glucose 164 H 146 H 130 H Calcium Magnesium Direct Bilirubin AST ALT Alkaline Phosphatase Total Creatine Kinase CK-MB (CK-2) CK-MB (CK-2) Rel Index Troponin T C-Reactive Protein Total Protein Albumin Triglycerides Ur Specific [place] Urine WBC (Auto) Miscellaneous Test 04/05/17 04/05/17 04/05/17 04:43 05:28 11:36 WBC RBC Hgb Hct MCV MCH Plt Count Lymph % (Auto) [place] % (Auto) Eos % (Auto) Baso % (Auto) Lymph # Baso # Seg Neutrophils % Lymphocytes % (Manual) Monocytes % (Manual) Nucleated RBC % Seg Neutrophils # Seg Neutrophils # Man Monocytes # (Manual) PT INR Activated Clotting Time POC ABG pH 7.479 H POC ABG pCO2 33.5 L POC ABG pO2 76 L Sodium Potassium Chloride Carbon Dioxide BUN Creatinine Glucose POC Glucose 145 H 136 H Calcium Magnesium Direct Bilirubin AST ALT Alkaline Phosphatase Total Creatine Kinase CK-MB (CK-2) CK-MB (CK-2) Rel Index Troponin T C-Reactive Protein Total Protein Albumin Triglycerides Ur Specific [place] Urine WBC (Auto) Miscellaneous Test 04/05/17 04/06/17 04/06/17 17:58 00:16 05:26 WBC RBC Hgb Hct MCV MCH Plt Count Lymph % (Auto) [place] % (Auto) Eos % (Auto) Baso % (Auto) Lymph # Baso # Seg Neutrophils % Lymphocytes % (Manual) Monocytes % (Manual) Nucleated RBC % Seg Neutrophils # Seg Neutrophils # Man Monocytes # (Manual) PT INR Activated Clotting Time POC ABG pH POC ABG pCO2 POC ABG pO2 Sodium Potassium Chloride Carbon Dioxide BUN Creatinine Glucose POC Glucose 130 H 159 H 146 H Calcium Magnesium Direct Bilirubin AST ALT Alkaline Phosphatase Total Creatine Kinase CK-MB (CK-2) CK-MB (CK-2) Rel Index Troponin T C-Reactive Protein Total Protein Albumin Triglycerides Ur Specific [place] Urine WBC (Auto) Miscellaneous Test 04/06/17 04/06/17 04/07/17 13:11 16:54 11:45 WBC RBC Hgb Hct MCV MCH Plt Count Lymph % (Auto) [place] % (Auto) Eos % (Auto) Baso % (Auto) Lymph # Baso # Seg Neutrophils % Lymphocytes % (Manual) Monocytes % (Manual) Nucleated RBC % Seg Neutrophils # Seg Neutrophils # Man Monocytes # (Manual) PT INR Activated Clotting Time POC ABG pH 7.517 H POC ABG pCO2 32.1 L POC ABG pO2 Sodium Potassium Chloride Carbon Dioxide BUN Creatinine Glucose POC Glucose 132 H 123 H Calcium Magnesium Direct Bilirubin AST ALT Alkaline Phosphatase Total Creatine Kinase CK-MB (CK-2) CK-MB (CK-2) Rel Index Troponin T C-Reactive Protein Total Protein Albumin Triglycerides Ur Specific [place] Urine WBC (Auto) Miscellaneous Test 04/07/17 04/07/17 04/07/17 12:51 17:40 23:55 WBC RBC Hgb Hct MCV MCH Plt Count Lymph % (Auto) [place] % (Auto) Eos % (Auto) Baso % (Auto) Lymph # Baso # Seg Neutrophils % Lymphocytes % (Manual) Monocytes % (Manual) Nucleated RBC % Seg Neutrophils # Seg Neutrophils # Man Monocytes # (Manual) PT INR Activated Clotting Time POC ABG pH POC ABG pCO2 POC ABG pO2 Sodium Potassium Chloride Carbon Dioxide BUN Creatinine Glucose POC Glucose 138 H 154 H 143 H Calcium Magnesium Direct Bilirubin AST ALT Alkaline Phosphatase Total Creatine Kinase CK-MB (CK-2) CK-MB (CK-2) Rel Index Troponin T C-Reactive Protein Total Protein Albumin Triglycerides Ur Specific [place] Urine WBC (Auto) Miscellaneous Test 04/08/17 04/08/17 04/08/17 05:27 11:14 17:44 WBC RBC Hgb Hct MCV MCH Plt Count Lymph % (Auto) [place] % (Auto) Eos % (Auto) Baso % (Auto) Lymph # Baso # Seg Neutrophils % Lymphocytes % (Manual) Monocytes % (Manual) Nucleated RBC % Seg Neutrophils # Seg Neutrophils # Man Monocytes # (Manual) PT INR Activated Clotting Time POC ABG pH POC ABG pCO2 POC ABG pO2 Sodium Potassium Chloride Carbon Dioxide BUN Creatinine Glucose POC Glucose 142 H 153 H 129 H Calcium Magnesium Direct Bilirubin AST ALT Alkaline Phosphatase Total Creatine Kinase CK-MB (CK-2) CK-MB (CK-2) Rel Index Troponin T C-Reactive Protein Total Protein Albumin Triglycerides Ur Specific [place] Urine WBC (Auto) Miscellaneous Test 04/09/17 04/09/17 04/09/17 08:20 11:21 17:37 WBC RBC Hgb Hct MCV MCH Plt Count Lymph % (Auto) [place] % (Auto) Eos % (Auto) Baso % (Auto) Lymph # Baso # Seg Neutrophils % Lymphocytes % (Manual) Monocytes % (Manual) Nucleated RBC % Seg Neutrophils # Seg Neutrophils # Man Monocytes # (Manual) PT INR Activated Clotting Time POC ABG pH POC ABG pCO2 POC ABG pO2 Sodium 147 H Potassium Chloride 108.8 H Carbon Dioxide BUN 39 H Creatinine 0.5 L Glucose 138 H POC Glucose 152 H 109 H Calcium Magnesium Direct Bilirubin AST ALT Alkaline Phosphatase Total Creatine Kinase CK-MB (CK-2) CK-MB (CK-2) Rel Index Troponin T C-Reactive Protein Total Protein Albumin Triglycerides Ur Specific [place] Urine WBC (Auto) Miscellaneous Test 04/10/17 04/10/17 04/10/17 00:13 04:16 04:16 WBC RBC Hgb 11.5 L Hct MCV 96 H MCH Plt Count 103 L Lymph % (Auto) 11.1 L [place] % (Auto) Eos % (Auto) Baso % (Auto) Lymph # Baso # Seg Neutrophils % 81.5 H Lymphocytes % (Manual) Monocytes % (Manual) Nucleated RBC % Seg Neutrophils # 8.8 H Seg Neutrophils # Man Monocytes # (Manual) PT INR Activated Clotting Time POC ABG pH POC ABG pCO2 POC ABG pO2 Sodium 148 H Potassium Chloride 109.0 H Carbon Dioxide BUN 36 H Creatinine 0.5 L Glucose 131 H POC Glucose 127 H Calcium 8.1 L Magnesium 2.40 H Direct Bilirubin AST 206 H ALT 228 H Alkaline Phosphatase 178 H Total Creatine Kinase CK-MB (CK-2) CK-MB (CK-2) Rel Index Troponin T C-Reactive Protein Total Protein Albumin 2.8 L Triglycerides Ur Specific [place] Urine WBC (Auto) Miscellaneous Test 04/10/17 04/10/17 04/10/17 06:01 11:57 18:27 WBC RBC Hgb Hct MCV MCH Plt Count Lymph % (Auto) [place] % (Auto) Eos % (Auto) Baso % (Auto) Lymph # Baso # Seg Neutrophils % Lymphocytes % (Manual) Monocytes % (Manual) Nucleated RBC % Seg Neutrophils # Seg Neutrophils # Man Monocytes # (Manual) PT INR Activated Clotting Time POC ABG pH POC ABG pCO2 POC ABG pO2 Sodium Potassium Chloride Carbon Dioxide BUN Creatinine Glucose POC Glucose 108 H 154 H 130 H Calcium Magnesium Direct Bilirubin AST ALT Alkaline Phosphatase Total Creatine Kinase CK-MB (CK-2) CK-MB (CK-2) Rel Index Troponin T C-Reactive Protein Total Protein Albumin Triglycerides Ur Specific [place] Urine WBC (Auto) Miscellaneous Test 04/11/17 04/11/17 04/12/17 12:25 17:10 00:22 WBC RBC Hgb Hct MCV MCH Plt Count Lymph % (Auto) [place] % (Auto) Eos % (Auto) Baso % (Auto) Lymph # Baso # Seg Neutrophils % Lymphocytes % (Manual) Monocytes % (Manual) Nucleated RBC % Seg Neutrophils # Seg Neutrophils # Man Monocytes # (Manual) PT INR Activated Clotting Time POC ABG pH POC ABG pCO2 POC ABG pO2 Sodium Potassium Chloride Carbon Dioxide BUN Creatinine Glucose POC Glucose 107 H 129 H 128 H Calcium Magnesium Direct Bilirubin AST ALT Alkaline Phosphatase Total Creatine Kinase CK-MB (CK-2) CK-MB (CK-2) Rel Index Troponin T C-Reactive Protein Total Protein Albumin Triglycerides Ur Specific [place] Urine WBC (Auto) Miscellaneous Test 04/12/17 04/12/17 04/12/17 05:00 11:57 17:47 WBC RBC Hgb Hct MCV MCH Plt Count Lymph % (Auto) [place] % (Auto) Eos % (Auto) Baso % (Auto) Lymph # Baso # Seg Neutrophils % Lymphocytes % (Manual) Monocytes % (Manual) Nucleated RBC % Seg Neutrophils # Seg Neutrophils # Man Monocytes # (Manual) PT INR Activated Clotting Time POC ABG pH POC ABG pCO2 POC ABG pO2 Sodium Potassium Chloride Carbon Dioxide BUN Creatinine Glucose POC Glucose 140 H 142 H Calcium Magnesium Direct Bilirubin AST 158 H ALT 184 H Alkaline Phosphatase 170 H Total Creatine Kinase CK-MB (CK-2) CK-MB (CK-2) Rel Index Troponin T C-Reactive Protein Total Protein Albumin 2.8 L Triglycerides Ur Specific [place] Urine WBC (Auto) Miscellaneous Test 04/12/17 04/12/17 04/13/17 21:36 21:36 01:37 WBC RBC Hgb Hct MCV MCH Plt Count Lymph % (Auto) [place] % (Auto) Eos % (Auto) Baso % (Auto) Lymph # Baso # Seg Neutrophils % Lymphocytes % (Manual) Monocytes % (Manual) Nucleated RBC % Seg Neutrophils # Seg Neutrophils # Man Monocytes # (Manual) PT INR Activated Clotting Time POC ABG pH POC ABG pCO2 POC ABG pO2 Sodium Potassium Chloride Carbon Dioxide BUN Creatinine Glucose POC Glucose 126 H Calcium Magnesium Direct Bilirubin AST ALT Alkaline Phosphatase Total Creatine Kinase 1404 H CK-MB (CK-2) 8.0 H CK-MB (CK-2) Rel Index Troponin T 0.767 H* C-Reactive Protein Total Protein Albumin Triglycerides Ur Specific [place] Urine WBC (Auto) Miscellaneous Test 04/13/17 04/13/17 04/13/17 04:45 04:52 12:17 WBC RBC Hgb Hct MCV MCH Plt Count Lymph % (Auto) [place] % (Auto) Eos % (Auto) Baso % (Auto) Lymph # Baso # Seg Neutrophils % Lymphocytes % (Manual) Monocytes % (Manual) Nucleated RBC % Seg Neutrophils # Seg Neutrophils # Man Monocytes # (Manual) PT INR Activated Clotting Time POC ABG pH POC ABG pCO2 POC ABG pO2 Sodium 148 H Potassium Chloride 112.8 H Carbon Dioxide BUN 33 H Creatinine 0.4 L Glucose 121 H POC Glucose 126 H 149 H Calcium Magnesium Direct Bilirubin AST 160 H ALT 189 H Alkaline Phosphatase 166 H Total Creatine Kinase CK-MB (CK-2) CK-MB (CK-2) Rel Index Troponin T C-Reactive Protein Total Protein Albumin 2.6 L Triglycerides Ur Specific [place] Urine WBC (Auto) Miscellaneous Test 04/13/17 04/14/17 04/14/17 17:45 00:20 00:45 WBC RBC Hgb Hct MCV MCH Plt Count Lymph % (Auto) [place] % (Auto) Eos % (Auto) Baso % (Auto) Lymph # Baso # Seg Neutrophils % Lymphocytes % (Manual) Monocytes % (Manual) Nucleated RBC % Seg Neutrophils # Seg Neutrophils # Man Monocytes # (Manual) PT INR Activated Clotting Time POC ABG pH POC ABG pCO2 POC ABG pO2 Sodium Potassium Chloride Carbon Dioxide BUN Creatinine Glucose POC Glucose 130 H 144 H 144 H Calcium Magnesium Direct Bilirubin AST ALT Alkaline Phosphatase Total Creatine Kinase CK-MB (CK-2) CK-MB (CK-2) Rel Index Troponin T C-Reactive Protein Total Protein Albumin Triglycerides Ur Specific [place] Urine WBC (Auto) Miscellaneous Test 04/14/17 04/14/17 04/14/17 05:40 11:06 11:31 WBC RBC Hgb Hct MCV MCH Plt Count Lymph % (Auto) [place] % (Auto) Eos % (Auto) Baso % (Auto) Lymph # Baso # Seg Neutrophils % Lymphocytes % (Manual) Monocytes % (Manual) Nucleated RBC % Seg Neutrophils # Seg Neutrophils # Man Monocytes # (Manual) PT INR Activated Clotting Time POC ABG pH POC ABG pCO2 POC ABG pO2 Sodium Potassium Chloride Carbon Dioxide BUN Creatinine Glucose POC Glucose 139 H 123 H Calcium Magnesium Direct Bilirubin AST ALT Alkaline Phosphatase Total Creatine Kinase CK-MB (CK-2) CK-MB (CK-2) Rel Index Troponin T C-Reactive Protein Total Protein Albumin Triglycerides Ur Specific [place] 1.033 H Urine WBC (Auto) > 182.0 H Miscellaneous Test 04/14/17 04/14/17 04/15/17 18:00 23:52 05:15 WBC 12.5 H RBC 3.38 L Hgb 10.6 L Hct 32.7 L MCV 97 H MCH Plt Count 107 L Lymph % (Auto) 8.7 L [place] % (Auto) Eos % (Auto) Baso % (Auto) Lymph # 1.1 L Baso # Seg Neutrophils % 86.1 H Lymphocytes % (Manual) Monocytes % (Manual) Nucleated RBC % Seg Neutrophils # 10.7 H Seg Neutrophils # Man Monocytes # (Manual) PT INR Activated Clotting Time POC ABG pH POC ABG pCO2 POC ABG pO2 Sodium Potassium Chloride Carbon Dioxide BUN Creatinine Glucose POC Glucose 133 H 133 H Calcium Magnesium Direct Bilirubin AST ALT Alkaline Phosphatase Total Creatine Kinase CK-MB (CK-2) CK-MB (CK-2) Rel Index Troponin T C-Reactive Protein Total Protein Albumin Triglycerides Ur Specific [place] Urine WBC (Auto) Miscellaneous Test 04/15/17 04/15/17 04/15/17 05:15 05:25 11:50 WBC RBC Hgb Hct MCV MCH Plt Count Lymph % (Auto) [place] % (Auto) Eos % (Auto) Baso % (Auto) Lymph # Baso # Seg Neutrophils % Lymphocytes % (Manual) Monocytes % (Manual) Nucleated RBC % Seg Neutrophils # Seg Neutrophils # Man Monocytes # (Manual) PT INR Activated Clotting Time POC ABG pH POC ABG pCO2 POC ABG pO2 Sodium 149 H Potassium 3.5 L Chloride 114.1 H Carbon Dioxide 21 L BUN 29 H Creatinine 0.4 L Glucose 128 H POC Glucose 133 H 107 H Calcium 8.3 L Magnesium Direct Bilirubin 0.4 H AST 149 H ALT 182 H Alkaline Phosphatase 143 H Total Creatine Kinase CK-MB (CK-2) CK-MB (CK-2) Rel Index Troponin T C-Reactive Protein Total Protein Albumin 2.5 L Triglycerides Ur Specific [place] Urine WBC (Auto) Miscellaneous Test 04/15/17 04/16/17 04/16/17 16:55 00:02 03:17 WBC RBC 3.39 L Hgb 10.5 L Hct 32.4 L MCV 96 H MCH Plt Count 106 L Lymph % (Auto) 6.7 L [place] % (Auto) Eos % (Auto) Baso % (Auto) Lymph # 0.6 L Baso # Seg Neutrophils % 86.8 H Lymphocytes % (Manual) Monocytes % (Manual) Nucleated RBC % Seg Neutrophils # 8.2 H Seg Neutrophils # Man Monocytes # (Manual) PT INR Activated Clotting Time POC ABG pH POC ABG pCO2 POC ABG pO2 Sodium Potassium Chloride Carbon Dioxide BUN Creatinine Glucose POC Glucose 146 H 148 H Calcium Magnesium Direct Bilirubin AST ALT Alkaline Phosphatase Total Creatine Kinase CK-MB (CK-2) CK-MB (CK-2) Rel Index Troponin T C-Reactive Protein Total Protein Albumin Triglycerides Ur Specific [place] Urine WBC (Auto) Miscellaneous Test 04/16/17 04/16/1704/16/18 03:17 05:19 11:13 WBC RBC Hgb Hct MCV MCH Plt Count Lymph % (Auto) [place] % (Auto) Eos % (Auto) Baso % (Auto) Lymph # Baso # Seg Neutrophils % Lymphocytes % (Manual) Monocytes % (Manual) Nucleated RBC % Seg Neutrophils # Seg Neutrophils # Man Monocytes # (Manual) PT INR Activated Clotting Time POC ABG pH POC ABG pCO2 POC ABG pO2 Sodium 149 H Potassium Chloride 111.1 H Carbon Dioxide 20 L BUN 27 H Creatinine 0.3 L Glucose 156 H POC Glucose 171 H 169 H Calcium 8.3 L Magnesium Direct Bilirubin AST ALT Alkaline Phosphatase Total Creatine Kinase CK-MB (CK-2) CK-MB (CK-2) Rel Index Troponin T C-Reactive Protein Total Protein Albumin Triglycerides Ur Specific [place] Urine WBC (Auto) Miscellaneous Test 04/16/17 04/17/17 04/17/17 17:03 00:00 05:09 WBC RBC Hgb Hct MCV MCH Plt Count Lymph % (Auto) [place] % (Auto) Eos % (Auto) Baso % (Auto) Lymph # Baso # Seg Neutrophils % Lymphocytes % (Manual) Monocytes % (Manual) Nucleated RBC % Seg Neutrophils # Seg Neutrophils # Man Monocytes # (Manual) PT INR Activated Clotting Time POC ABG pH POC ABG pCO2 POC ABG pO2 Sodium Potassium Chloride Carbon Dioxide BUN Creatinine Glucose POC Glucose 151 H 165 H 145 H Calcium Magnesium Direct Bilirubin AST ALT Alkaline Phosphatase Total Creatine Kinase CK-MB (CK-2) CK-MB (CK-2) Rel Index Troponin T C-Reactive Protein Total Protein Albumin Triglycerides Ur Specific [place] Urine WBC (Auto) Miscellaneous Test 04/17/17 04/17/17 04/18/17 11:38 17:47 00:01 WBC RBC Hgb Hct MCV MCH Plt Count Lymph % (Auto) [place] % (Auto) Eos % (Auto) Baso % (Auto) Lymph # Baso # Seg Neutrophils % Lymphocytes % (Manual) Monocytes % (Manual) Nucleated RBC % Seg Neutrophils # Seg Neutrophils # Man Monocytes # (Manual) PT INR Activated Clotting Time POC ABG pH POC ABG pCO2 POC ABG pO2 Sodium Potassium Chloride Carbon Dioxide BUN Creatinine Glucose POC Glucose 170 H 161 H 131 H Calcium Magnesium Direct Bilirubin AST ALT Alkaline Phosphatase Total Creatine Kinase CK-MB (CK-2) CK-MB (CK-2) Rel Index Troponin T C-Reactive Protein Total Protein Albumin Triglycerides Ur Specific [place] Urine WBC (Auto) Miscellaneous Test 04/18/17 04/18/17 04/18/17 03:55 03:55 05:30 WBC RBC 3.05 L Hgb 9.8 L Hct 29.0 L MCV 95 H MCH Plt Count 113 L Lymph % (Auto) [place] % (Auto) Eos % (Auto) 5.3 H Baso % (Auto) Lymph # Baso # Seg Neutrophils % 71.5 H Lymphocytes % (Manual) Monocytes % (Manual) Nucleated RBC % Seg Neutrophils # Seg Neutrophils # Man Monocytes # (Manual) PT INR Activated Clotting Time POC ABG pH 7.460 H POC ABG pCO2 30.8 L POC ABG pO2 129 H Sodium Potassium Chloride Carbon Dioxide 21 L BUN 25 H Creatinine 0.4 L Glucose 123 H POC Glucose Calcium 8.3 L Magnesium Direct Bilirubin AST ALT Alkaline Phosphatase Total Creatine Kinase CK-MB (CK-2) CK-MB (CK-2) Rel Index Troponin T C-Reactive Protein Total Protein Albumin Triglycerides Ur Specific [place] Urine WBC (Auto) Miscellaneous Test 04/18/17 04/18/17 04/19/17 17:10 23:40 04:36 WBC RBC 3.21 L Hgb 10.2 L Hct 30.4 L MCV 95 H MCH Plt Count 131 L Lymph % (Auto) 12.1 L [place] % (Auto) Eos % (Auto) 4.7 H Baso % (Auto) 2.4 H Lymph # 0.9 L Baso # 0.2 H Seg Neutrophils % 75.0 H Lymphocytes % (Manual) Monocytes % (Manual) Nucleated RBC % Seg Neutrophils # Seg Neutrophils # Man Monocytes # (Manual) PT INR Activated Clotting Time POC ABG pH POC ABG pCO2 POC ABG pO2 Sodium Potassium Chloride Carbon Dioxide BUN Creatinine Glucose POC Glucose 135 H 157 H Calcium Magnesium Direct Bilirubin AST ALT Alkaline Phosphatase Total Creatine Kinase CK-MB (CK-2) CK-MB (CK-2) Rel Index Troponin T C-Reactive Protein Total Protein Albumin Triglycerides Ur Specific [place] Urine WBC (Auto) Miscellaneous Test 04/19/17 04/19/17 04/19/17 04:36 05:12 06:50 WBC RBC Hgb Hct MCV MCH Plt Count Lymph % (Auto) [place] % (Auto) Eos % (Auto) Baso % (Auto) Lymph # Baso # Seg Neutrophils % Lymphocytes % (Manual) Monocytes % (Manual) Nucleated RBC % Seg Neutrophils # Seg Neutrophils # Man Monocytes # (Manual) PT INR Activated Clotting Time POC ABG pH 7.516 H POC ABG pCO2 28.0 L POC ABG pO2 Sodium Potassium Chloride Carbon Dioxide 21 L BUN 23 H Creatinine 0.2 L Glucose 137 H POC Glucose 131 H Calcium 7.9 L Magnesium Direct Bilirubin AST ALT Alkaline Phosphatase Total Creatine Kinase CK-MB (CK-2) CK-MB (CK-2) Rel Index Troponin T C-Reactive Protein Total Protein Albumin Triglycerides Ur Specific [place] Urine WBC (Auto) Miscellaneous Test 04/19/17 04/19/17 04/20/17 12:36 17:42 00:12 WBC RBC Hgb Hct MCV MCH Plt Count Lymph % (Auto) [place] % (Auto) Eos % (Auto) Baso % (Auto) Lymph # Baso # Seg Neutrophils % Lymphocytes % (Manual) Monocytes % (Manual) Nucleated RBC % Seg Neutrophils # Seg Neutrophils # Man Monocytes # (Manual) PT INR Activated Clotting Time POC ABG pH POC ABG pCO2 POC ABG pO2 Sodium Potassium Chloride Carbon Dioxide BUN Creatinine Glucose POC Glucose 128 H 140 H 132 H Calcium Magnesium Direct Bilirubin AST ALT Alkaline Phosphatase Total Creatine Kinase CK-MB (CK-2) CK-MB (CK-2) Rel Index Troponin T C-Reactive Protein Total Protein Albumin Triglycerides Ur Specific [place] Urine WBC (Auto) Miscellaneous Test 04/20/17 04/20/17 04/20/17 03:35 03:35 05:10 WBC RBC 3.34 L Hgb 10.4 L Hct 31.6 L MCV 95 H MCH Plt Count Lymph % (Auto) 12.9 L [place] % (Auto) Eos % (Auto) Baso % (Auto) Lymph # Baso # Seg Neutrophils % 77.3 H Lymphocytes % (Manual) Monocytes % (Manual) Nucleated RBC % Seg Neutrophils # Seg Neutrophils # Man Monocytes # (Manual) PT INR Activated Clotting Time POC ABG pH POC ABG pCO2 POC ABG pO2 Sodium Potassium Chloride Carbon Dioxide BUN Creatinine 0.3 L Glucose 155 H POC Glucose 135 H Calcium 7.8 L Magnesium Direct Bilirubin AST ALT Alkaline Phosphatase Total Creatine Kinase CK-MB (CK-2) CK-MB (CK-2) Rel Index Troponin T C-Reactive Protein Total Protein Albumin Triglycerides Ur Specific [place] Urine WBC (Auto) Miscellaneous Test 04/20/17 04/20/17 04/21/17 12:49 18:21 00:05 WBC RBC Hgb Hct MCV MCH Plt Count Lymph % (Auto) [place] % (Auto) Eos % (Auto) Baso % (Auto) Lymph # Baso # Seg Neutrophils % Lymphocytes % (Manual) Monocytes % (Manual) Nucleated RBC % Seg Neutrophils # Seg Neutrophils # Man Monocytes # (Manual) PT INR Activated Clotting Time POC ABG pH POC ABG pCO2 POC ABG pO2 Sodium Potassium Chloride Carbon Dioxide BUN Creatinine Glucose POC Glucose 155 H 165 H 141 H Calcium Magnesium Direct Bilirubin AST ALT Alkaline Phosphatase Total Creatine Kinase CK-MB (CK-2) CK-MB (CK-2) Rel Index Troponin T C-Reactive Protein Total Protein Albumin Triglycerides Ur Specific [place] Urine WBC (Auto) Miscellaneous Test 04/21/17 04/21/17 04/21/17 06:00 12:11 17:04 WBC RBC Hgb Hct MCV MCH Plt Count Lymph % (Auto) [place] % (Auto) Eos % (Auto) Baso % (Auto) Lymph # Baso # Seg Neutrophils % Lymphocytes % (Manual) Monocytes % (Manual) Nucleated RBC % Seg Neutrophils # Seg Neutrophils # Man Monocytes # (Manual) PT INR Activated Clotting Time POC ABG pH POC ABG pCO2 POC ABG pO2 Sodium Potassium Chloride Carbon Dioxide BUN Creatinine Glucose POC Glucose 152 H 165 H 156 H Calcium Magnesium Direct Bilirubin AST ALT Alkaline Phosphatase Total Creatine Kinase CK-MB (CK-2) CK-MB (CK-2) Rel Index Troponin T C-Reactive Protein Total Protein Albumin Triglycerides Ur Specific [place] Urine WBC (Auto) Miscellaneous Test 04/21/17 04/21/17 04/22/17 22:00 23:59 05:49 WBC RBC Hgb Hct MCV MCH Plt Count Lymph % (Auto) [place] % (Auto) Eos % (Auto) Baso % (Auto) Lymph # Baso # Seg Neutrophils % Lymphocytes % (Manual) Monocytes % (Manual) Nucleated RBC % Seg Neutrophils # Seg Neutrophils # Man Monocytes # (Manual) PT INR Activated Clotting Time POC ABG pH POC ABG pCO2 POC ABG pO2 Sodium Potassium Chloride Carbon Dioxide BUN Creatinine Glucose POC Glucose 166 H 173 H Calcium Magnesium Direct Bilirubin AST ALT Alkaline Phosphatase Total Creatine Kinase CK-MB (CK-2) CK-MB (CK-2) Rel Index Troponin T C-Reactive Protein Total Protein Albumin Triglycerides Ur Specific [place] Urine WBC (Auto) 10.0 H Miscellaneous Test 04/22/17 04/22/17 04/23/17 11:11 18:04 00:37 WBC RBC Hgb Hct MCV MCH Plt Count Lymph % (Auto) [place] % (Auto) Eos % (Auto) Baso % (Auto) Lymph # Baso # Seg Neutrophils % Lymphocytes % (Manual) Monocytes % (Manual) Nucleated RBC % Seg Neutrophils # Seg Neutrophils # Man Monocytes # (Manual) PT INR Activated Clotting Time POC ABG pH POC ABG pCO2 POC ABG pO2 Sodium Potassium Chloride Carbon Dioxide BUN Creatinine Glucose POC Glucose 172 H 140 H 135 H Calcium Magnesium Direct Bilirubin AST ALT Alkaline Phosphatase Total Creatine Kinase CK-MB (CK-2) CK-MB (CK-2) Rel Index Troponin T C-Reactive Protein Total Protein Albumin Triglycerides Ur Specific [place] Urine WBC (Auto) Miscellaneous Test 04/23/17 04/23/17 04/23/17 05:33 06:20 11:10 WBC RBC 3.19 L Hgb 9.9 L Hct 30.0 L MCV MCH Plt Count Lymph % (Auto) 8.0 L [place] % (Auto) Eos % (Auto) Baso % (Auto) Lymph # 0.8 L Baso # Seg Neutrophils % 84.5 H Lymphocytes % (Manual) Monocytes % (Manual) Nucleated RBC % Seg Neutrophils # 8.2 H Seg Neutrophils # Man Monocytes # (Manual) PT INR Activated Clotting Time POC ABG pH POC ABG pCO2 POC ABG pO2 Sodium Potassium Chloride Carbon Dioxide BUN Creatinine Glucose POC Glucose 134 H 134 H Calcium Magnesium Direct Bilirubin AST ALT Alkaline Phosphatase Total Creatine Kinase CK-MB (CK-2) CK-MB (CK-2) Rel Index Troponin T C-Reactive Protein Total Protein Albumin Triglycerides Ur Specific [place] Urine WBC (Auto) Miscellaneous Test 04/23/17 04/24/17 04/24/17 17:26 00:53 06:46 WBC RBC Hgb Hct MCV MCH Plt Count Lymph % (Auto) [place] % (Auto) Eos % (Auto) Baso % (Auto) Lymph # Baso # Seg Neutrophils % Lymphocytes % (Manual) Monocytes % (Manual) Nucleated RBC % Seg Neutrophils # Seg Neutrophils # Man Monocytes # (Manual) PT INR Activated Clotting Time POC ABG pH POC ABG pCO2 POC ABG pO2 Sodium Potassium Chloride Carbon Dioxide BUN Creatinine Glucose POC Glucose 164 H 146 H 125 H Calcium Magnesium Direct Bilirubin AST ALT Alkaline Phosphatase Total Creatine Kinase CK-MB (CK-2) CK-MB (CK-2) Rel Index Troponin T C-Reactive Protein Total Protein Albumin Triglycerides Ur Specific [place] Urine WBC (Auto) Miscellaneous Test 04/24/17 04/24/17 04/24/17 11:55 17:50 23:36 WBC RBC Hgb Hct MCV MCH Plt Count Lymph % (Auto) [place] % (Auto) Eos % (Auto) Baso % (Auto) Lymph # Baso # Seg Neutrophils % Lymphocytes % (Manual) Monocytes % (Manual) Nucleated RBC % Seg Neutrophils # Seg Neutrophils # Man Monocytes # (Manual) PT INR Activated Clotting Time POC ABG pH POC ABG pCO2 POC ABG pO2 Sodium Potassium Chloride Carbon Dioxide BUN Creatinine Glucose POC Glucose 156 H 146 H 131 H Calcium Magnesium Direct Bilirubin AST ALT Alkaline Phosphatase Total Creatine Kinase CK-MB (CK-2) CK-MB (CK-2) Rel Index Troponin T C-Reactive Protein Total Protein Albumin Triglycerides Ur Specific [place] Urine WBC (Auto) Miscellaneous Test 04/25/17 04/25/17 04/25/17 04:51 05:16 07:07 WBC RBC Hgb Hct MCV MCH Plt Count Lymph % (Auto) [place] % (Auto) Eos % (Auto) Baso % (Auto) Lymph # Baso # Seg Neutrophils % Lymphocytes % (Manual) Monocytes % (Manual) Nucleated RBC % Seg Neutrophils # Seg Neutrophils # Man Monocytes # (Manual) PT INR Activated Clotting Time POC ABG pH POC ABG pCO2 POC ABG pO2 Sodium Potassium Chloride Carbon Dioxide BUN Creatinine Glucose POC Glucose 139 H Calcium Magnesium Direct Bilirubin AST 105 H ALT 204 H Alkaline Phosphatase 189 H Total Creatine Kinase CK-MB (CK-2) CK-MB (CK-2) Rel Index Troponin T C-Reactive Protein Total Protein Albumin 2.4 L Triglycerides Ur Specific [place] Urine WBC (Auto) Miscellaneous Test Flexitest 1 H 04/25/17 04/25/17 04/25/17 12:29 17:23 23:32 WBC RBC Hgb Hct MCV MCH Plt Count Lymph % (Auto) [place] % (Auto) Eos % (Auto) Baso % (Auto) Lymph # Baso # Seg Neutrophils % Lymphocytes % (Manual) Monocytes % (Manual) Nucleated RBC % Seg Neutrophils # Seg Neutrophils # Man Monocytes # (Manual) PT INR Activated Clotting Time POC ABG pH POC ABG pCO2 POC ABG pO2 Sodium Potassium Chloride Carbon Dioxide BUN Creatinine Glucose POC Glucose 132 H 133 H 128 H Calcium Magnesium Direct Bilirubin AST ALT Alkaline Phosphatase Total Creatine Kinase CK-MB (CK-2) CK-MB (CK-2) Rel Index Troponin T C-Reactive Protein Total Protein Albumin Triglycerides Ur Specific [place] Urine WBC (Auto) Miscellaneous Test 04/26/17 04/26/17 04/26/17 05:24 11:28 17:09 WBC RBC Hgb Hct MCV MCH Plt Count Lymph % (Auto) [place] % (Auto) Eos % (Auto) Baso % (Auto) Lymph # Baso # Seg Neutrophils % Lymphocytes % (Manual) Monocytes % (Manual) Nucleated RBC % Seg Neutrophils # Seg Neutrophils # Man Monocytes # (Manual) PT INR Activated Clotting Time POC ABG pH POC ABG pCO2 POC ABG pO2 Sodium Potassium Chloride Carbon Dioxide BUN Creatinine Glucose POC Glucose 132 H 146 H 141 H Calcium Magnesium Direct Bilirubin AST ALT Alkaline Phosphatase Total Creatine Kinase CK-MB (CK-2) CK-MB (CK-2) Rel Index Troponin T C-Reactive Protein Total Protein Albumin Triglycerides Ur Specific [place] Urine WBC (Auto) Miscellaneous Test 04/26/17 04/27/17 04/27/17 23:52 05:40 05:40 WBC RBC 3.22 L Hgb 10.0 L Hct 29.9 L MCV MCH Plt Count Lymph % (Auto) [place] % (Auto) Eos % (Auto) Baso % (Auto) Lymph # Baso # Seg Neutrophils % 76.6 H Lymphocytes % (Manual) Monocytes % (Manual) Nucleated RBC % Seg Neutrophils # Seg Neutrophils # Man Monocytes # (Manual) PT INR Activated Clotting Time POC ABG pH POC ABG pCO2 POC ABG pO2 Sodium Potassium Chloride Carbon Dioxide BUN Creatinine Glucose POC Glucose 140 H Calcium Magnesium Direct Bilirubin AST 66 H ALT 137 H Alkaline Phosphatase 169 H Total Creatine Kinase CK-MB (CK-2) CK-MB (CK-2) Rel Index Troponin T C-Reactive Protein Total Protein 6.2 L Albumin 2.6 L Triglycerides Ur Specific [place] Urine WBC (Auto) Miscellaneous Test 04/27/17 04/27/17 04/27/17 05:40 06:10 11:13 WBC RBC Hgb Hct MCV MCH Plt Count Lymph % (Auto) [place] % (Auto) Eos % (Auto) Baso % (Auto) Lymph # Baso # Seg Neutrophils % Lymphocytes % (Manual) Monocytes % (Manual) Nucleated RBC % Seg Neutrophils # Seg Neutrophils # Man Monocytes # (Manual) PT INR Activated Clotting Time POC ABG pH POC ABG pCO2 POC ABG pO2 Sodium Potassium Chloride Carbon Dioxide BUN Creatinine 0.2 L Glucose 139 H POC Glucose 130 H 151 H Calcium Magnesium Direct Bilirubin AST ALT Alkaline Phosphatase Total Creatine Kinase CK-MB (CK-2) CK-MB (CK-2) Rel Index Troponin T C-Reactive Protein Total Protein Albumin Triglycerides Ur Specific [place] Urine WBC (Auto) Miscellaneous Test 04/27/17 04/27/17 04/28/17 17:37 23:19 05:24 WBC RBC Hgb Hct MCV MCH Plt Count Lymph % (Auto) [place] % (Auto) Eos % (Auto) Baso % (Auto) Lymph # Baso # Seg Neutrophils % Lymphocytes % (Manual) Monocytes % (Manual) Nucleated RBC % Seg Neutrophils # Seg Neutrophils # Man Monocytes # (Manual) PT INR Activated Clotting Time POC ABG pH POC ABG pCO2 POC ABG pO2 Sodium Potassium Chloride Carbon Dioxide BUN Creatinine Glucose POC Glucose 159 H 130 H 132 H Calcium Magnesium Direct Bilirubin AST ALT Alkaline Phosphatase Total Creatine Kinase CK-MB (CK-2) CK-MB (CK-2) Rel Index Troponin T C-Reactive Protein Total Protein Albumin Triglycerides Ur Specific [place] Urine WBC (Auto) Miscellaneous Test 04/28/17 04/28/17 04/28/17 11:15 17:38 23:23 WBC RBC Hgb Hct MCV MCH Plt Count Lymph % (Auto) [place] % (Auto) Eos % (Auto) Baso % (Auto) Lymph # Baso # Seg Neutrophils % Lymphocytes % (Manual) Monocytes % (Manual) Nucleated RBC % Seg Neutrophils # Seg Neutrophils # Man Monocytes # (Manual) PT INR Activated Clotting Time POC ABG pH POC ABG pCO2 POC ABG pO2 Sodium Potassium Chloride Carbon Dioxide BUN Creatinine Glucose POC Glucose 162 H 133 H 138 H Calcium Magnesium Direct Bilirubin AST ALT Alkaline Phosphatase Total Creatine Kinase CK-MB (CK-2) CK-MB (CK-2) Rel Index Troponin T C-Reactive Protein Total Protein Albumin Triglycerides Ur Specific [place] Urine WBC (Auto) Miscellaneous Test 04/29/17 04/29/17 04/29/17 05:15 12:55 17:21 WBC RBC Hgb Hct MCV MCH Plt Count Lymph % (Auto) [place] % (Auto) Eos % (Auto) Baso % (Auto) Lymph # Baso # Seg Neutrophils % Lymphocytes % (Manual) Monocytes % (Manual) Nucleated RBC % Seg Neutrophils # Seg Neutrophils # Man Monocytes # (Manual) PT INR Activated Clotting Time POC ABG pH POC ABG pCO2 POC ABG pO2 Sodium Potassium Chloride Carbon Dioxide BUN Creatinine Glucose POC Glucose 135 H 127 H 138 H Calcium Magnesium Direct Bilirubin AST ALT Alkaline Phosphatase Total Creatine Kinase CK-MB (CK-2) CK-MB (CK-2) Rel Index Troponin T C-Reactive Protein Total Protein Albumin Triglycerides Ur Specific [place] Urine WBC (Auto) Miscellaneous Test 04/29/17 04/30/17 04/30/17 23:52 04:55 12:22 WBC RBC Hgb Hct MCV MCH Plt Count Lymph % (Auto) [place] % (Auto) Eos % (Auto) Baso % (Auto) Lymph # Baso # Seg Neutrophils % Lymphocytes % (Manual) Monocytes % (Manual) Nucleated RBC % Seg Neutrophils # Seg Neutrophils # Man Monocytes # (Manual) PT INR Activated Clotting Time POC ABG pH POC ABG pCO2 POC ABG pO2 Sodium Potassium Chloride Carbon Dioxide BUN Creatinine Glucose POC Glucose 142 H 146 H 132 H Calcium Magnesium Direct Bilirubin AST ALT Alkaline Phosphatase Total Creatine Kinase CK-MB (CK-2) CK-MB (CK-2) Rel Index Troponin T C-Reactive Protein Total Protein Albumin Triglycerides Ur Specific [place] Urine WBC (Auto) Miscellaneous Test 04/30/17 04/30/17 04/30/17 14:25 17:47 18:20 WBC RBC Hgb Hct MCV MCH Plt Count Lymph % (Auto) [place] % (Auto) Eos % (Auto) Baso % (Auto) Lymph # Baso # Seg Neutrophils % Lymphocytes % (Manual) Monocytes % (Manual) Nucleated RBC % Seg Neutrophils # Seg Neutrophils # Man Monocytes # (Manual) PT INR Activated Clotting Time POC ABG pH 7.551 H POC ABG pCO2 32.7 L POC ABG pO2 Sodium Potassium Chloride Carbon Dioxide BUN 21 H Creatinine 0.2 L Glucose 141 H POC Glucose 139 H Calcium Magnesium Direct Bilirubin AST ALT Alkaline Phosphatase Total Creatine Kinase CK-MB (CK-2) CK-MB (CK-2) Rel Index Troponin T C-Reactive Protein Total Protein Albumin Triglycerides Ur Specific [place] Urine WBC (Auto) Miscellaneous Test 0205/01/17 05/01/17 01:26 05:30 05:30 WBC RBC 3.49 L Hgb 10.3 L Hct 31.9 L MCV MCH Plt Count Lymph % (Auto) [place] % (Auto) 8.1 H Eos % (Auto) Baso % (Auto) Lymph # Baso # Seg Neutrophils % 71.3 H Lymphocytes % (Manual) Monocytes % (Manual) Nucleated RBC % Seg Neutrophils # Seg Neutrophils # Man Monocytes # (Manual) PT INR Activated Clotting Time POC ABG pH POC ABG pCO2 POC ABG pO2 Sodium 136 L Potassium Chloride 97.6 L Carbon Dioxide BUN Creatinine 0.2 L Glucose 123 H POC Glucose 116 H Calcium Magnesium Direct Bilirubin AST 71 H ALT 125 H Alkaline Phosphatase 158 H Total Creatine Kinase CK-MB (CK-2) CK-MB (CK-2) Rel Index Troponin T C-Reactive Protein Total Protein Albumin 2.6 L Triglycerides Ur Specific [place] Urine WBC (Auto) Miscellaneous Test 05/01/17 05/01/17 05/02/17 11:59 17:23 00:08 WBC RBC Hgb Hct MCV MCH Plt Count Lymph % (Auto) [place] % (Auto) Eos % (Auto) Baso % (Auto) Lymph # Baso # Seg Neutrophils % Lymphocytes % (Manual) Monocytes % (Manual) Nucleated RBC % Seg Neutrophils # Seg Neutrophils # Man Monocytes # (Manual) PT INR Activated Clotting Time POC ABG pH POC ABG pCO2 POC ABG pO2 Sodium Potassium Chloride Carbon Dioxide BUN Creatinine Glucose POC Glucose 118 H 144 H 122 H Calcium Magnesium Direct Bilirubin AST ALT Alkaline Phosphatase Total Creatine Kinase CK-MB (CK-2) CK-MB (CK-2) Rel Index Troponin T C-Reactive Protein Total Protein Albumin Triglycerides Ur Specific [place] Urine WBC (Auto) Miscellaneous Test 05/02/17 05/02/17 05/02/17 05:50 11:21 17:48 WBC RBC Hgb Hct MCV MCH Plt Count Lymph % (Auto) [place] % (Auto) Eos % (Auto) Baso % (Auto) Lymph # Baso # Seg Neutrophils % Lymphocytes % (Manual) Monocytes % (Manual) Nucleated RBC % Seg Neutrophils # Seg Neutrophils # Man Monocytes # (Manual) PT INR Activated Clotting Time POC ABG pH POC ABG pCO2 POC ABG pO2 Sodium Potassium Chloride Carbon Dioxide BUN Creatinine Glucose POC Glucose 120 H 121 H 140 H Calcium Magnesium Direct Bilirubin AST ALT Alkaline Phosphatase Total Creatine Kinase CK-MB (CK-2) CK-MB (CK-2) Rel Index Troponin T C-Reactive Protein Total Protein Albumin Triglycerides Ur Specific [place] Urine WBC (Auto) Miscellaneous Test 05/02/17 05/03/17 05/03/17 23:12 05:35 11:52 WBC RBC Hgb Hct MCV MCH Plt Count Lymph % (Auto) [place] % (Auto) Eos % (Auto) Baso % (Auto) Lymph # Baso # Seg Neutrophils % Lymphocytes % (Manual) Monocytes % (Manual) Nucleated RBC % Seg Neutrophils # Seg Neutrophils # Man Monocytes # (Manual) PT INR Activated Clotting Time POC ABG pH POC ABG pCO2 POC ABG pO2 Sodium Potassium Chloride Carbon Dioxide BUN Creatinine Glucose POC Glucose 128 H 113 H 126 H Calcium Magnesium Direct Bilirubin AST ALT Alkaline Phosphatase Total Creatine Kinase CK-MB (CK-2) CK-MB (CK-2) Rel Index Troponin T C-Reactive Protein Total Protein Albumin Triglycerides Ur Specific [place] Urine WBC (Auto) Miscellaneous Test 05/03/17 05/03/17 05/04/17 17:29 23:26 04:55 WBC RBC Hgb Hct MCV MCH Plt Count Lymph % (Auto) [place] % (Auto) Eos % (Auto) Baso % (Auto) Lymph # Baso # Seg Neutrophils % Lymphocytes % (Manual) Monocytes % (Manual) Nucleated RBC % Seg Neutrophils # Seg Neutrophils # Man Monocytes # (Manual) PT INR Activated Clotting Time POC ABG pH POC ABG pCO2 POC ABG pO2 Sodium Potassium Chloride Carbon Dioxide BUN Creatinine Glucose POC Glucose 141 H 129 H 126 H Calcium Magnesium Direct Bilirubin AST ALT Alkaline Phosphatase Total Creatine Kinase CK-MB (CK-2) CK-MB (CK-2) Rel Index Troponin T C-Reactive Protein Total Protein Albumin Triglycerides Ur Specific [place] Urine WBC (Auto) Miscellaneous Test 05/04/17 05/04/17 05/05/17 12:09 17:46 00:06 WBC RBC Hgb Hct MCV MCH Plt Count Lymph % (Auto) [place] % (Auto) Eos % (Auto) Baso % (Auto) Lymph # Baso # Seg Neutrophils % Lymphocytes % (Manual) Monocytes % (Manual) Nucleated RBC % Seg Neutrophils # Seg Neutrophils # Man Monocytes # (Manual) PT INR Activated Clotting Time POC ABG pH POC ABG pCO2 POC ABG pO2 Sodium Potassium Chloride Carbon Dioxide BUN Creatinine Glucose POC Glucose 125 H 125 H 110 H Calcium Magnesium Direct Bilirubin AST ALT Alkaline Phosphatase Total Creatine Kinase CK-MB (CK-2) CK-MB (CK-2) Rel Index Troponin T C-Reactive Protein Total Protein Albumin Triglycerides Ur Specific [place] Urine WBC (Auto) Miscellaneous Test 05/05/17 05/05/17 05/05/17 05:48 11:41 16:19 WBC RBC Hgb Hct MCV MCH Plt Count Lymph % (Auto) [place] % (Auto) Eos % (Auto) Baso % (Auto) Lymph # Baso # Seg Neutrophils % Lymphocytes % (Manual) Monocytes % (Manual) Nucleated RBC % Seg Neutrophils # Seg Neutrophils # Man Monocytes # (Manual) PT INR Activated Clotting Time POC ABG pH POC ABG pCO2 POC ABG pO2 Sodium Potassium Chloride Carbon Dioxide BUN Creatinine Glucose POC Glucose 124 H 122 H 120 H Calcium Magnesium Direct Bilirubin AST ALT Alkaline Phosphatase Total Creatine Kinase CK-MB (CK-2) CK-MB (CK-2) Rel Index Troponin T C-Reactive Protein Total Protein Albumin Triglycerides Ur Specific [place] Urine WBC (Auto) Miscellaneous Test 05/06/17 05/06/17 05/06/17 00:16 05:47 11:42 WBC RBC Hgb Hct MCV MCH Plt Count Lymph % (Auto) [place] % (Auto) Eos % (Auto) Baso % (Auto) Lymph # Baso # Seg Neutrophils % Lymphocytes % (Manual) Monocytes % (Manual) Nucleated RBC % Seg Neutrophils # Seg Neutrophils # Man Monocytes # (Manual) PT INR Activated Clotting Time POC ABG pH POC ABG pCO2 POC ABG pO2 Sodium Potassium Chloride Carbon Dioxide BUN Creatinine Glucose POC Glucose 110 H 142 H 120 H Calcium Magnesium Direct Bilirubin AST ALT Alkaline Phosphatase Total Creatine Kinase CK-MB (CK-2) CK-MB (CK-2) Rel Index Troponin T C-Reactive Protein Total Protein Albumin Triglycerides Ur Specific [place] Urine WBC (Auto) Miscellaneous Test 05/06/17 05/07/17 05/07/17 17:46 00:07 05:28 WBC RBC Hgb Hct MCV MCH Plt Count Lymph % (Auto) [place] % (Auto) Eos % (Auto) Baso % (Auto) Lymph # Baso # Seg Neutrophils % Lymphocytes % (Manual) Monocytes % (Manual) Nucleated RBC % Seg Neutrophils # Seg Neutrophils # Man Monocytes # (Manual) PT INR Activated Clotting Time POC ABG pH POC ABG pCO2 POC ABG pO2 Sodium Potassium Chloride Carbon Dioxide BUN Creatinine Glucose POC Glucose 127 H 145 H 124 H Calcium Magnesium Direct Bilirubin AST ALT Alkaline Phosphatase Total Creatine Kinase CK-MB (CK-2) CK-MB (CK-2) Rel Index Troponin T C-Reactive Protein Total Protein Albumin Triglycerides Ur Specific [place] Urine WBC (Auto) Miscellaneous Test 05/07/17 05/07/17 05/08/17 11:17 17:14 00:03 WBC RBC Hgb Hct MCV MCH Plt Count Lymph % (Auto) [place] % (Auto) Eos % (Auto) Baso % (Auto) Lymph # Baso # Seg Neutrophils % Lymphocytes % (Manual) Monocytes % (Manual) Nucleated RBC % Seg Neutrophils # Seg Neutrophils # Man Monocytes # (Manual) PT INR Activated Clotting Time POC ABG pH POC ABG pCO2 POC ABG pO2 Sodium Potassium Chloride Carbon Dioxide BUN Creatinine Glucose POC Glucose 144 H 125 H 122 H Calcium Magnesium Direct Bilirubin AST ALT Alkaline Phosphatase Total Creatine Kinase CK-MB (CK-2) CK-MB (CK-2) Rel Index Troponin T C-Reactive Protein Total Protein Albumin Triglycerides Ur Specific [place] Urine WBC (Auto) Miscellaneous Test 05/08/17 05/08/17 05/08/17 05:43 12:07 18:02 WBC RBC Hgb Hct MCV MCH Plt Count Lymph % (Auto) [place] % (Auto) Eos % (Auto) Baso % (Auto) Lymph # Baso # Seg Neutrophils % Lymphocytes % (Manual) Monocytes % (Manual) Nucleated RBC % Seg Neutrophils # Seg Neutrophils # Man Monocytes # (Manual) PT INR Activated Clotting Time POC ABG pH POC ABG pCO2 POC ABG pO2 Sodium Potassium Chloride Carbon Dioxide BUN Creatinine Glucose POC Glucose 117 H 114 H 129 H Calcium Magnesium Direct Bilirubin AST ALT Alkaline Phosphatase Total Creatine Kinase CK-MB (CK-2) CK-MB (CK-2) Rel Index Troponin T C-Reactive Protein Total Protein Albumin Triglycerides Ur Specific [place] Urine WBC (Auto) Miscellaneous Test 05/08/17 05/09/17 05/09/17 23:53 04:19 05:14 WBC RBC Hgb Hct MCV MCH Plt Count Lymph % (Auto) [place] % (Auto) Eos % (Auto) Baso % (Auto) Lymph # Baso # Seg Neutrophils % Lymphocytes % (Manual) Monocytes % (Manual) Nucleated RBC % Seg Neutrophils # Seg Neutrophils # Man Monocytes # (Manual) PT INR Activated Clotting Time POC ABG pH 7.524 H POC ABG pCO2 34.7 L POC ABG pO2 107 H Sodium Potassium Chloride Carbon Dioxide BUN Creatinine Glucose POC Glucose 125 H 118 H Calcium Magnesium Direct Bilirubin AST ALT Alkaline Phosphatase Total Creatine Kinase CK-MB (CK-2) CK-MB (CK-2) Rel Index Troponin T C-Reactive Protein Total Protein Albumin Triglycerides Ur Specific [place] Urine WBC (Auto) Miscellaneous Test
--- NOTE | 2017-05-10 18:11 | Progress Note ---
Assessment and Plan Assessment and plan: Cardiac arrest s/p CPR anoxic encephalopathy respiratory failure vent dependent tracheostomy and PEG placement MRSA pneumonia ,Sepsis poor prognosis, full CODE STATUS -- acute hypoxic hypercapnic respiratory failure ; status post trach, vent dependent, on weaning parameters --s/p cardiac arrest /[place] encephalopathy/vegetative state --Acute anterior STEMI; status post PCI, --MRSA pneumonia/aspiration pneumonia, contact isolation patient received full treatment with Zyvox --Hypertension; BP in the lower range. -- aspiration pneumonia; sepsis; received full course of antibiotics --Cardiogenic shock; off pressors, --s/p trach and PEG, continue PEG feeds --Severe Protein calorie malnutrition: Peg feeds and nutrition suppliments --DVT prophylaxis; Lovenox On the new on the current management --Full CODE STATUS Poor prognosis family aware Possible family meeting this week to discuss up or treatment plan Very difficult to place, secondary to social issues History Interval history: Patient seen and examined medical records reviewed Spontaneous opening of eyes Status post tracheostomy on vent No new events reported by the nursing staff Vital signs reviewed Hospitalist Physical - Constitutional Vitals: Temp Pulse Resp BP Pulse Ox 97.1 F L 93 H 25 H 103/64 100 05/10/17 12:00 05/10/17 16:00 05/10/17 15:44 05/10/17 16:00 05/10/17 16:00 General appearance: Present: no acute distress, other (tracheostomy on vent) - EENT Eyes: Present: PERRL - Neck Neck: Present: supple - Respiratory Respiratory: bilateral: diminished, rhonchi, negative: rales, wheezing - Cardiovascular Rhythm: regular Heart Sounds: Present: S1 & S2 - Extremities Extremities: no ischemia, No edema - Abdominal General gastrointestinal: soft, non-tender, non-distended, normal bowel sounds, other (PEG tube in place) - Integumentary Integumentary: Present: clear, warm - Psychiatric Psychiatric: other (unresponsive) - Neurologic Neurologic: other (unresponsive) Results - Labs CBC & Chem 7: 05/01/17 05:30 05/01/17 05:30 Labs: Laboratory Last Values WBC 7.8 K/mm3 (4.5-11.0) 05/01/17 05:30 RBC 3.49 M/mm3 (3.65-5.03) L 05/01/17 05:30 Hgb 10.3 gm/dl (11.8-15.2) L 05/01/17 05:30 Hct 31.9 % (35.5-45.6) L 05/01/17 05:30 MCV 92 fl (84-94) 05/01/17 05:30 MCH 30 pg (28-32) 05/01/17 05:30 MCHC 32 % (32-34) 05/01/17 05:30 RDW 15.1 % (13.2-15.2) 05/01/17 05:30 Plt Count 280 K/mm3 (140-440) 05/01/17 05:30 Lymph % (Auto) 17.7 % (13.4-35.0) 05/01/17 05:30 [place] % (Auto) 8.1 % (0.0-7.3) H 05/01/17 05:30 Eos % (Auto) 2.5 % (0.0-4.3) 05/01/17 05:30 Baso % (Auto) 0.4 % (0.0-1.8) 05/01/17 05:30 Lymph # 1.4 K/mm3 (1.2-5.4) 05/01/17 05:30 [place] # 0.6 K/mm3 (0.0-0.8) 05/01/17 05:30 Eos # 0.2 K/mm3 (0.0-0.4) 05/01/17 05:30 Baso # 0.0 K/mm3 (0.0-0.1) 05/01/17 05:30 Add Manual Diff Complete 03/30/17 03:50 Total Counted 100 03/30/17 03:50 Seg Neutrophils % 71.3 % (40.0-70.0) H 05/01/17 05:30 Seg Neuts % (Manual) 65.0 % (40.0-70.0) 03/30/17 03:50 Band Neutrophils % 17.0 % 03/30/17 03:50 Lymphocytes % (Manual) 7.0 % (13.4-35.0) L 03/30/17 03:50 Reactive Lymphs % (Man) 0 % 03/30/17 03:50 Monocytes % (Manual) 7.0 % (0.0-7.3) 03/30/17 03:50 Eosinophils % (Manual) 0 % (0.0-4.3) 03/30/17 03:50 Basophils % (Manual) 0 % (0.0-1.8) 03/30/17 03:50 Metamyelocytes % 4.0 % 03/30/17 03:50 Myelocytes % 0 % 03/30/17 03:50 Promyelocytes % 0 % 03/30/17 03:50 Blast Cells % 0 % 03/30/17 03:50 Nucleated RBC % Not Reportable 03/30/17 03:50 Seg Neutrophils # 5.6 K/mm3 (1.8-7.7) 05/01/17 05:30 Seg Neutrophils # Man 12.7 K/mm3 (1.8-7.7) H 03/30/17 03:50 Band Neutrophils # 3.3 K/mm3 03/30/17 03:50 Lymphocytes # (Manual) 1.4 K/mm3 (1.2-5.4) 03/30/17 03:50 Abs React Lymphs (Man) 0.0 K/mm3 03/30/17 03:50 Monocytes # (Manual) 1.4 K/mm3 (0.0-0.8) H 03/30/17 03:50 Eosinophils # (Manual) 0.0 K/mm3 (0.0-0.4) 03/30/17 03:50 Basophils # (Manual) 0.0 K/mm3 (0.0-0.1) 03/30/17 03:50 Metamyelocytes # 0.8 K/mm3 03/30/17 03:50 Myelocytes # 0.0 K/mm3 03/30/17 03:50 Promyelocytes # 0.0 K/mm3 03/30/17 03:50 Blast Cells # 0.0 K/mm3 03/30/17 03:50 WBC Morphology Not Reportable 03/30/17 03:50 Hypersegmented Neuts Not Reportable 03/30/17 03:50 Hyposegmented Neuts Not Reportable 03/30/17 03:50 Hypogranular Neuts Not Reportable 03/30/17 03:50 Smudge Cells Not Reportable 03/30/17 03:50 Toxic Granulation Not Reportable 03/30/17 03:50 Toxic Vacuolation Not Reportable 03/30/17 03:50 Dohle Bodies Not Reportable 03/30/17 03:50 Pelger-Huet Anomaly Not Reportable 03/30/17 03:50 Sherry Rods Not Reportable 03/30/17 03:50 Platelet Estimate Appears normal 03/30/17 03:50 Clumped Platelets Not Reportable 03/30/17 03:50 Plt Clumps, EDTA Not Reportable 03/30/17 03:50 Large Platelets Not Reportable 03/30/17 03:50 Giant Platelets Not Reportable 03/30/17 03:50 Platelet Satelliting Not Reportable 03/30/17 03:50 Plt Morphology Comment Not Reportable 03/30/17 03:50 RBC Morphology Not Reportable 03/30/17 03:50 Dimorphic RBCs Not Reportable 03/30/17 03:50 Polychromasia Not Reportable 03/30/17 03:50 Hypochromasia Not Reportable 03/30/17 03:50 Poikilocytosis Not Reportable 03/30/17 03:50 Anisocytosis Few 03/30/17 03:50 Microcytosis Not Reportable 03/30/17 03:50 Macrocytosis Not Reportable 03/30/17 03:50 Spherocytes Not Reportable 03/30/17 03:50 Pappenheimer Bodies Not Reportable 03/30/17 03:50 Sickle Cells Not Reportable 03/30/17 03:50 Target Cells Not Reportable 03/30/17 03:50 Tear Drop Cells Not Reportable 03/30/17 03:50 Ovalocytes Not Reportable 03/30/17 03:50 Helmet Cells Not Reportable 03/30/17 03:50 [place] Bodies Not Reportable 03/30/17 03:50 [place] Rings Not Reportable 03/30/17 03:50 [place] Cells Not Reportable 03/30/17 03:50 Bite Cells Not Reportable 03/30/17 03:50 Crenated Cell Not Reportable 03/30/17 03:50 Elliptocytes Not Reportable 03/30/17 03:50 Acanthocytes (Spur) Not Reportable 03/30/17 03:50 Rouleaux Not Reportable 03/30/17 03:50 Hemoglobin C Crystals Not Reportable 03/30/17 03:50 Schistocytes Not Reportable 03/30/17 03:50 Malaria parasites Not Reportable 03/30/17 03:50 Jermaine Bodies Not Reportable 03/30/17 03:50 Hem Pathologist Commnt No 03/30/17 03:50 PT 14.9 Sec. (12.2-14.9) 04/10/17 04:16 INR 1.11 (0.87-1.13) 04/10/17 04:16 APTT 27.8 Sec. (24.2-36.6) 04/10/17 04:16 Activated Clotting Time 92 (74-137) 03/29/17 17:47 POC ABG pH 7.524 (7.35-7.45) H 05/09/17 04:19 POC ABG pCO2 34.7 (35-45) L 05/09/17 04:19 POC ABG pO2 107 (80-105) H 05/09/17 04:19 POC ABG HCO3 28.6 05/09/17 04:19 POC ABG Total CO2 30 05/09/17 04:19 POC ABG O2 Sat 99 05/09/17 04:19 POC ABG Base Excess 6 05/09/17 04:19 FiO2 25 % 05/09/17 04:19 Sodium 136 mmol/L (137-145) L 05/01/17 05:30 Potassium 3.9 mmol/L (3.6-5.0) 05/01/17 05:30 Chloride 97.6 mmol/L (98-107) L 05/01/17 05:30 Carbon Dioxide 25 mmol/L (22-30) 05/01/17 05:30 Anion Gap 17 mmol/L 05/01/17 05:30 BUN 16 mg/dL (9-20) 05/01/17 05:30 Creatinine 0.2 mg/dL (0.8-1.5) L 05/01/17 05:30 Estimated GFR > 60 ml/min 05/01/17 05:30 BUN/Creatinine Ratio 80 % 05/01/17 05:30 Glucose 123 mg/dL (75-100) H 05/01/17 05:30 POC Glucose 118 (70-105) H 05/09/17 05:14 Calcium 8.9 mg/dL (8.4-10.2) 05/01/17 05:30 Phosphorus 3.50 mg/dL (2.5-4.5) 04/13/17 04:45 Magnesium 1.80 mg/dL (1.7-2.3) 05/01/17 05:30 Total Bilirubin 0.60 mg/dL (0.1-1.2) 05/01/17 05:30 Direct Bilirubin < 0.2 mg/dL (0-0.2) 04/27/17 05:40 Indirect Bilirubin 0.3 mg/dL 04/25/17 04:51 AST 71 units/L (5-40) H 05/01/17 05:30 ALT 125 units/L (7-56) H 05/01/17 05:30 Alkaline Phosphatase 158 units/L (35-129) H 05/01/17 05:30 Total Creatine Kinase 1404 units/L (55-170) H 04/12/17 21:36 CK-MB (CK-2) 8.0 ng/mL (0.0-4.0) H 04/12/17 21:36 CK-MB (CK-2) Rel Index 0.5 (0-4) 04/12/17 21:36 Troponin T 0.767 ng/mL (0.00-0.029) H* 04/12/17 21:36 C-Reactive Protein 21.80 mg/dL (0.00-1.30) H 03/30/17 16:04 Total Protein 6.7 g/dL (6.3-8.2) 05/01/17 05:30 Albumin 2.6 g/dL (3.9-5) L 05/01/17 05:30 Albumin/Globulin Ratio 0.6 % 05/01/17 05:30 Triglycerides 151 mg/dL (2-149) H 04/01/17 04:29 Cholesterol 164 mg/dL (50-199) 03/29/17 19:52 LDL Cholesterol Direct 81 mg/dL (50-130) 03/29/17 19:52 HDL Cholesterol 44 mg/dL (40-59) 03/29/17 19:52 Cholesterol/HDL Ratio 3.72 % 03/29/17 19:52 Urine Color [place] (Yellow) 04/21/17 22:00 Urine Turbidity Clear (Clear) 04/21/17 22:00 Urine pH 5.0 (5.0-7.0) 04/21/17 22:00 Ur Specific [place] 1.029 (1.003-1.030) 04/21/17 22:00 Urine Protein 30 mg/dl mg/dL (Negative) 04/21/17 22:00 Urine Glucose (UA) Neg mg/dL (Negative) 04/21/17 22:00 Urine Ketones Neg mg/dL (Negative) 04/21/17 22:00 Urine Blood Mod (Negative) 04/21/17 22:00 Urine Nitrite Neg (Negative) 04/21/17 22:00 Urine Bilirubin Neg (Negative) 04/21/17 22:00 Urine Urobilinogen 4.0 mg/dL (<2.0) 04/21/17 22:00 Ur Leukocyte Esterase Neg (Negative) 04/21/17 22:00 Urine WBC (Auto) 10.0 /HPF (0.0-6.0) H 04/21/17 22:00 Urine RBC (Auto) 44.0 /HPF (0.0-6.0) 04/21/17 22:00 U Epithel Cells (Auto) < 1.0 /HPF (0-13.0) 04/21/17 22:00 Amorphous Crystals 1+ 03/30/17 09:45 Urine Mucus 3+ /HPF 04/21/17 22:00 Urine Opiates Screen Presumptive negative 03/30/17 09:45 Urine Methadone Screen Presumptive negative 03/30/17 09:45 Ur Barbiturates Screen Presumptive negative 03/30/17 09:45 Ur Phencyclidine Scrn Presumptive negative 03/30/17 09:45 Ur Amphetamines Screen Presumptive positive 03/30/17 09:45 U Benzodiazepines Scrn Presumptive positive 03/30/17 09:45 Urine Cocaine Screen Presumptive negative 03/30/17 09:45 U Marijuana (THC) Screen Presumptive negative 03/30/17 09:45 Drugs of Abuse Note Disclamer 03/30/17 09:45 Miscellaneous Test Flexitest 1 H 04/25/17 07:07 Blood Type O POSITIVE 03/29/17 11:35 Antibody Screen Negative 03/29/17 11:35
[2017-05-11] MEDS: LOPRESSOR PO SCH ×3 (06:38→23:14)
[2017-05-11] MEDS: ELIQUIS PO SCH ×2 (10:29→23:13)
[2017-05-11] MEDS: CORDARONE PO SCH ×2 (10:29→23:13)
[2017-05-11] MEDS: PLAVIX PO SCH (10:30)
[2017-05-11] MEDS: PROTONIX FEEDTUBE SCH (10:30)
[2017-05-11] MEDS: ASPIRIN PO SCH (10:30)
[2017-05-11] MEDS: ZESTRIL PO SCH (10:31)
--- NOTE | 2017-05-11 11:24 | Progress Note ---
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 Family meeting scheduled for 13:00 tomorrow afternoon. Neurology will be present. Will discuss code status and what family expectations are at this point. Given his lack of clinical/neurological recovery, prognosis appears to be very, very poor. 1. PSV as tolerated with a goal to get to T-piece 2. Once tolerates T-piece for 24 hours, can consider transfer to floor 3. reviewed neurology note and agree with assessment 4. Continue all other cardiac meds 5. Overall prognosis still remains poor given amount of downtime during arrest. 6. Still need to have family meeting with neurology present to explain current findings. Patient should at least be a DNR if family wants to continue aggressive care. Given his current cardiac issues and mental state, coding him would not improve any outcomes. CCT 31 minutes. Subjective Date of service: 05/11/17 Principal diagnosis: coma,ARV,s/p arrest Interval history: No acute events. Had to be placed back on a rate last night. No family currently at bedside. Objective Vital Signs - 12hr 05/10/17 05/11/17 05/11/17 23:30 00:00 00:30 Temperature 98.7 F Pulse Rate 87 88 88 Respiratory 21 21 22 Rate Blood Pressure 100/61 96/56 104/69 O2 Sat by Pulse 98 97 96 Oximetry O2 Sat by Pulse Oximetry [ Assessment] 05/11/17 05/11/17 05/11/17 01:00 01:30 02:00 Temperature Pulse Rate 90 90 87 Respiratory 21 22 20 Rate Blood Pressure 105/70 99/62 99/62 O2 Sat by Pulse 97 93 99 Oximetry O2 Sat by Pulse Oximetry [ Assessment] 05/11/17 05/11/17 05/11/17 02:30 03:00 03:30 Temperature Pulse Rate 87 80 78 Respiratory 17 17 20 Rate Blood Pressure 110/73 99/63 98/58 O2 Sat by Pulse 98 Oximetry O2 Sat by Pulse Oximetry [ Assessment] 05/11/17 05/11/17 05/11/17 03:56 04:00 04:30 Temperature 98.8 F Pulse Rate 83 80 Respiratory 20 18 Rate Blood Pressure 104/63 99/62 O2 Sat by Pulse 95 Oximetry O2 Sat by Pulse Oximetry [ Assessment] 05/11/17 05/11/17 05/11/17 05:00 05:30 06:00 Temperature Pulse Rate 80 79 82 Respiratory 17 15 17 Rate Blood Pressure 91/54 95/61 99/61 O2 Sat by Pulse 96 100 97 Oximetry O2 Sat by Pulse Oximetry [ Assessment] 05/11/17 05/11/17 05/11/17 06:30 06:38 07:00 Temperature Pulse Rate 86 89 87 Respiratory 20 22 Rate Blood Pressure 94/62 103/56 98/60 O2 Sat by Pulse 100 100 Oximetry O2 Sat by Pulse Oximetry [ Assessment] 05/11/17 05/11/17 05/11/17 07:30 08:00 08:18 Temperature 98.7 F Pulse Rate 90 86 87 Respiratory 21 20 17 Rate Blood Pressure 92/60 103/65 103/65 O2 Sat by Pulse 99 99 100 Oximetry O2 Sat by Pulse Oximetry [ Assessment] 05/11/17 05/11/17 05/11/17 08:20 08:30 09:00 Temperature Pulse Rate 89 87 Respiratory 15 18 Rate Blood Pressure 100/67 100/65 O2 Sat by Pulse Oximetry O2 Sat by Pulse 99 Oximetry [ Assessment] 05/11/17 05/11/17 09:30 10:31 Temperature Pulse Rate 88 88 Respiratory 17 Rate Blood Pressure 96/62 100/62 O2 Sat by Pulse Oximetry O2 Sat by Pulse Oximetry [ Assessment] Constitutional: no acute distress, comatose Eyes: non-icteric ENT: oropharynx moist Neck: supple, no JVD, other (tracheotomy ) Effort: normal Ascultation: Bilateral: clear, diminished breath sounds, other (coarse BS bilaterally) Percussion: Bilateral: not dull Cardiovascular: regular rate and rhythm Gastrointestinal: normoactive bowel sounds, soft, non-tender, non-distended Integumentary: normal Extremities: no cyanosis, no edema, pink and warm Neurologic: unable to assess Psychiatric: other (eyes open spontaneously but does not follow any voice commands, otherwise nonresponsive except for pain) CBC and BMP: 05/01/17 05:30 05/01/17 05:30 ABG, PT/INR, D-dimer: ABG POC ABG pH 7.524 (7.35-7.45) H 05/09/17 04:19 POC ABG pCO2 34.7 (35-45) L 05/09/17 04:19 POC ABG pO2 107 (80-105) H 05/09/17 04:19 POC ABG HCO3 28.6 05/09/17 04:19 POC ABG Total CO2 30 05/09/17 04:19 POC ABG O2 Sat 99 05/09/17 04:19 PT/INR, D-dimer PT 14.9 Sec. (12.2-14.9) 04/10/17 04:16 INR 1.11 (0.87-1.13) 04/10/17 04:16 Abnormal lab findings: Abnormal Labs 03/29/17 03/29/17 03/29/17 11:35 11:35 11:40 WBC RBC Hgb Hct MCV 98 H MCH 33 H Plt Count Lymph % (Auto) [place] % (Auto) Eos % (Auto) Baso % (Auto) Lymph # Baso # Seg Neutrophils % Lymphocytes % (Manual) Monocytes % (Manual) 9.0 H Nucleated RBC % 1.0 H Seg Neutrophils # Seg Neutrophils # Man Monocytes # (Manual) 0.9 H PT 15.8 H INR 1.20 H Activated Clotting Time POC ABG pH POC ABG pCO2 POC ABG pO2 Sodium Potassium 2.7 L* Chloride 95.3 L Carbon Dioxide 17 L BUN Creatinine Glucose 435 H POC Glucose Calcium Magnesium Direct Bilirubin AST ALT Alkaline Phosphatase Total Creatine Kinase CK-MB (CK-2) CK-MB (CK-2) Rel Index Troponin T C-Reactive Protein Total Protein 6.1 L Albumin 3.5 L Triglycerides Ur Specific [place] Urine WBC (Auto) Miscellaneous Test 03/29/17 03/29/17 03/29/17 12:34 13:10 13:25 WBC RBC Hgb Hct MCV MCH Plt Count Lymph % (Auto) [place] % (Auto) Eos % (Auto) Baso % (Auto) Lymph # Baso # Seg Neutrophils % Lymphocytes % (Manual) Monocytes % (Manual) Nucleated RBC % Seg Neutrophils # Seg Neutrophils # Man Monocytes # (Manual) PT INR Activated Clotting Time 142 H 169 H 175 H POC ABG pH POC ABG pCO2 POC ABG pO2 Sodium Potassium Chloride Carbon Dioxide BUN Creatinine Glucose POC Glucose Calcium Magnesium Direct Bilirubin AST ALT Alkaline Phosphatase Total Creatine Kinase CK-MB (CK-2) CK-MB (CK-2) Rel Index Troponin T C-Reactive Protein Total Protein Albumin Triglycerides Ur Specific [place] Urine WBC (Auto) Miscellaneous Test 03/29/17 03/29/17 03/29/17 14:50 15:18 19:52 WBC RBC Hgb Hct MCV MCH Plt Count Lymph % (Auto) [place] % (Auto) Eos % (Auto) Baso % (Auto) Lymph # Baso # Seg Neutrophils % Lymphocytes % (Manual) Monocytes % (Manual) Nucleated RBC % Seg Neutrophils # Seg Neutrophils # Man Monocytes # (Manual) PT INR Activated Clotting Time 175 H POC ABG pH 7.293 L POC ABG pCO2 POC ABG pO2 602 H Sodium Potassium Chloride Carbon Dioxide BUN Creatinine Glucose POC Glucose Calcium Magnesium Direct Bilirubin AST ALT Alkaline Phosphatase Total Creatine Kinase 7263 H CK-MB (CK-2) > 300.0 H CK-MB (CK-2) Rel Index 4.1 H Troponin T 8.080 H* D C-Reactive Protein Total Protein Albumin Triglycerides 195 H Ur Specific [place] Urine WBC (Auto) Miscellaneous Test 03/30/17 03/30/17 03/30/17 03:50 03:50 06:19 WBC 19.5 H RBC Hgb Hct MCV MCH Plt Count Lymph % (Auto) [place] % (Auto) Eos % (Auto) Baso % (Auto) Lymph # Baso # Seg Neutrophils % Lymphocytes % (Manual) 7.0 L Monocytes % (Manual) Nucleated RBC % Seg Neutrophils # Seg Neutrophils # Man 12.7 H Monocytes # (Manual) 1.4 H PT INR Activated Clotting Time POC ABG pH POC ABG pCO2 28.2 L POC ABG pO2 108 H Sodium Potassium Chloride 108.9 H Carbon Dioxide 15 L BUN 25 H Creatinine Glucose 158 H POC Glucose Calcium 8.1 L Magnesium Direct Bilirubin AST ALT Alkaline Phosphatase Total Creatine Kinase 7963 H CK-MB (CK-2) > 300.0 H CK-MB (CK-2) Rel Index Troponin T 6.850 H* C-Reactive Protein Total Protein Albumin Triglycerides Ur Specific [place] Urine WBC (Auto) Miscellaneous Test 03/30/17 03/30/17 03/31/17 09:45 16:04 02:19 WBC RBC Hgb Hct MCV MCH Plt Count Lymph % (Auto) [place] % (Auto) Eos % (Auto) Baso % (Auto) Lymph # Baso # Seg Neutrophils % Lymphocytes % (Manual) Monocytes % (Manual) Nucleated RBC % Seg Neutrophils # Seg Neutrophils # Man Monocytes # (Manual) PT INR Activated Clotting Time POC ABG pH POC ABG pCO2 POC ABG pO2 Sodium Potassium Chloride Carbon Dioxide BUN Creatinine Glucose POC Glucose 137 H Calcium Magnesium Direct Bilirubin AST ALT Alkaline Phosphatase Total Creatine Kinase CK-MB (CK-2) CK-MB (CK-2) Rel Index Troponin T C-Reactive Protein 21.80 H Total Protein Albumin Triglycerides Ur Specific [place] 1.031 H Urine WBC (Auto) Miscellaneous Test 03/31/17 03/31/17 03/31/17 03:57 06:54 09:22 WBC RBC Hgb Hct MCV MCH Plt Count Lymph % (Auto) [place] % (Auto) Eos % (Auto) Baso % (Auto) Lymph # Baso # Seg Neutrophils % Lymphocytes % (Manual) Monocytes % (Manual) Nucleated RBC % Seg Neutrophils # Seg Neutrophils # Man Monocytes # (Manual) PT INR Activated Clotting Time POC ABG pH 7.475 H POC ABG pCO2 25.4 L POC ABG pO2 62 L Sodium Potassium Chloride Carbon Dioxide 19 L BUN 22 H Creatinine 0.6 L Glucose 148 H POC Glucose 143 H Calcium 8.3 L Magnesium Direct Bilirubin AST ALT Alkaline Phosphatase Total Creatine Kinase CK-MB (CK-2) CK-MB (CK-2) Rel Index Troponin T C-Reactive Protein Total Protein Albumin Triglycerides Ur Specific [place] Urine WBC (Auto) Miscellaneous Test 03/31/17 03/31/17 03/31/17 11:40 17:47 23:38 WBC RBC Hgb Hct MCV MCH Plt Count Lymph % (Auto) [place] % (Auto) Eos % (Auto) Baso % (Auto) Lymph # Baso # Seg Neutrophils % Lymphocytes % (Manual) Monocytes % (Manual) Nucleated RBC % Seg Neutrophils # Seg Neutrophils # Man Monocytes # (Manual) PT INR Activated Clotting Time POC ABG pH POC ABG pCO2 POC ABG pO2 Sodium Potassium Chloride Carbon Dioxide BUN Creatinine Glucose POC Glucose 127 H 137 H 148 H Calcium Magnesium Direct Bilirubin AST ALT Alkaline Phosphatase Total Creatine Kinase CK-MB (CK-2) CK-MB (CK-2) Rel Index Troponin T C-Reactive Protein Total Protein Albumin Triglycerides Ur Specific [place] Urine WBC (Auto) Miscellaneous Test 04/01/17 04/01/17 04/01/17 04:29 05:01 11:54 WBC RBC Hgb Hct MCV MCH Plt Count Lymph % (Auto) [place] % (Auto) Eos % (Auto) Baso % (Auto) Lymph # Baso # Seg Neutrophils % Lymphocytes % (Manual) Monocytes % (Manual) Nucleated RBC % Seg Neutrophils # Seg Neutrophils # Man Monocytes # (Manual) PT INR Activated Clotting Time POC ABG pH 7.513 H POC ABG pCO2 22.1 L POC ABG pO2 64 L Sodium Potassium Chloride Carbon Dioxide BUN Creatinine Glucose POC Glucose 121 H Calcium Magnesium Direct Bilirubin AST ALT Alkaline Phosphatase Total Creatine Kinase CK-MB (CK-2) CK-MB (CK-2) Rel Index Troponin T C-Reactive Protein Total Protein Albumin Triglycerides 151 H Ur Specific [place] Urine WBC (Auto) Miscellaneous Test 04/01/17 04/02/17 04/02/17 18:17 00:11 04:52 WBC RBC Hgb Hct MCV MCH Plt Count Lymph % (Auto) [place] % (Auto) Eos % (Auto) Baso % (Auto) Lymph # Baso # Seg Neutrophils % Lymphocytes % (Manual) Monocytes % (Manual) Nucleated RBC % Seg Neutrophils # Seg Neutrophils # Man Monocytes # (Manual) PT INR Activated Clotting Time POC ABG pH 7.524 H POC ABG pCO2 25.5 L POC ABG pO2 66 L Sodium Potassium Chloride Carbon Dioxide BUN Creatinine Glucose POC Glucose 117 H 122 H Calcium Magnesium Direct Bilirubin AST ALT Alkaline Phosphatase Total Creatine Kinase CK-MB (CK-2) CK-MB (CK-2) Rel Index Troponin T C-Reactive Protein Total Protein Albumin Triglycerides Ur Specific [place] Urine WBC (Auto) Miscellaneous Test 04/02/17 04/02/17 04/02/17 05:18 10:41 12:19 WBC RBC Hgb Hct MCV MCH Plt Count Lymph % (Auto) [place] % (Auto) Eos % (Auto) Baso % (Auto) Lymph # Baso # Seg Neutrophils % Lymphocytes % (Manual) Monocytes % (Manual) Nucleated RBC % Seg Neutrophils # Seg Neutrophils # Man Monocytes # (Manual) PT INR Activated Clotting Time POC ABG pH 7.534 H POC ABG pCO2 27.4 L POC ABG pO2 Sodium Potassium Chloride Carbon Dioxide BUN Creatinine Glucose POC Glucose 132 H 129 H Calcium Magnesium Direct Bilirubin AST ALT Alkaline Phosphatase Total Creatine Kinase CK-MB (CK-2) CK-MB (CK-2) Rel Index Troponin T C-Reactive Protein Total Protein Albumin Triglycerides Ur Specific [place] Urine WBC (Auto) Miscellaneous Test 04/02/17 04/03/17 04/03/17 18:05 00:08 05:09 WBC RBC Hgb Hct MCV MCH Plt Count Lymph % (Auto) [place] % (Auto) Eos % (Auto) Baso % (Auto) Lymph # Baso # Seg Neutrophils % Lymphocytes % (Manual) Monocytes % (Manual) Nucleated RBC % Seg Neutrophils # Seg Neutrophils # Man Monocytes # (Manual) PT INR Activated Clotting Time POC ABG pH 7.455 H POC ABG pCO2 33.2 L POC ABG pO2 120 H Sodium Potassium Chloride Carbon Dioxide BUN Creatinine Glucose POC Glucose 136 H 128 H Calcium Magnesium Direct Bilirubin AST ALT Alkaline Phosphatase Total Creatine Kinase CK-MB (CK-2) CK-MB (CK-2) Rel Index Troponin T C-Reactive Protein Total Protein Albumin Triglycerides Ur Specific [place] Urine WBC (Auto) Miscellaneous Test 04/03/17 04/03/17 04/03/17 06:32 11:54 12:16 WBC 11.9 H RBC Hgb Hct MCV MCH Plt Count 125 L Lymph % (Auto) 4.8 L [place] % (Auto) Eos % (Auto) Baso % (Auto) Lymph # 0.6 L Baso # Seg Neutrophils % 86.7 H Lymphocytes % (Manual) Monocytes % (Manual) Nucleated RBC % Seg Neutrophils # 10.3 H Seg Neutrophils # Man Monocytes # (Manual) PT INR Activated Clotting Time POC ABG pH POC ABG pCO2 POC ABG pO2 Sodium Potassium Chloride Carbon Dioxide BUN Creatinine Glucose POC Glucose 138 H 143 H Calcium Magnesium Direct Bilirubin AST ALT Alkaline Phosphatase Total Creatine Kinase CK-MB (CK-2) CK-MB (CK-2) Rel Index Troponin T C-Reactive Protein Total Protein Albumin Triglycerides Ur Specific [place] Urine WBC (Auto) Miscellaneous Test 04/03/17 04/03/17 04/04/17 17:33 23:59 04:34 WBC RBC Hgb Hct MCV MCH Plt Count Lymph % (Auto) [place] % (Auto) Eos % (Auto) Baso % (Auto) Lymph # Baso # Seg Neutrophils % Lymphocytes % (Manual) Monocytes % (Manual) Nucleated RBC % Seg Neutrophils # Seg Neutrophils # Man Monocytes # (Manual) PT INR Activated Clotting Time POC ABG pH 7.457 H POC ABG pCO2 29.8 L POC ABG pO2 76 L Sodium Potassium Chloride Carbon Dioxide BUN Creatinine Glucose POC Glucose 130 H 155 H Calcium Magnesium Direct Bilirubin AST ALT Alkaline Phosphatase Total Creatine Kinase CK-MB (CK-2) CK-MB (CK-2) Rel Index Troponin T C-Reactive Protein Total Protein Albumin Triglycerides Ur Specific [place] Urine WBC (Auto) Miscellaneous Test 04/04/17 04/04/17 04/04/17 05:27 12:22 18:18 WBC RBC Hgb Hct MCV MCH Plt Count Lymph % (Auto) [place] % (Auto) Eos % (Auto) Baso % (Auto) Lymph # Baso # Seg Neutrophils % Lymphocytes % (Manual) Monocytes % (Manual) Nucleated RBC % Seg Neutrophils # Seg Neutrophils # Man Monocytes # (Manual) PT INR Activated Clotting Time POC ABG pH POC ABG pCO2 POC ABG pO2 Sodium Potassium Chloride Carbon Dioxide BUN Creatinine Glucose POC Glucose 164 H 146 H 130 H Calcium Magnesium Direct Bilirubin AST ALT Alkaline Phosphatase Total Creatine Kinase CK-MB (CK-2) CK-MB (CK-2) Rel Index Troponin T C-Reactive Protein Total Protein Albumin Triglycerides Ur Specific [place] Urine WBC (Auto) Miscellaneous Test 04/05/17 04/05/17 04/05/17 04:43 05:28 11:36 WBC RBC Hgb Hct MCV MCH Plt Count Lymph % (Auto) [place] % (Auto) Eos % (Auto) Baso % (Auto) Lymph # Baso # Seg Neutrophils % Lymphocytes % (Manual) Monocytes % (Manual) Nucleated RBC % Seg Neutrophils # Seg Neutrophils # Man Monocytes # (Manual) PT INR Activated Clotting Time POC ABG pH 7.479 H POC ABG pCO2 33.5 L POC ABG pO2 76 L Sodium Potassium Chloride Carbon Dioxide BUN Creatinine Glucose POC Glucose 145 H 136 H Calcium Magnesium Direct Bilirubin AST ALT Alkaline Phosphatase Total Creatine Kinase CK-MB (CK-2) CK-MB (CK-2) Rel Index Troponin T C-Reactive Protein Total Protein Albumin Triglycerides Ur Specific [place] Urine WBC (Auto) Miscellaneous Test 04/05/17 04/06/17 04/06/17 17:58 00:16 05:26 WBC RBC Hgb Hct MCV MCH Plt Count Lymph % (Auto) [place] % (Auto) Eos % (Auto) Baso % (Auto) Lymph # Baso # Seg Neutrophils % Lymphocytes % (Manual) Monocytes % (Manual) Nucleated RBC % Seg Neutrophils # Seg Neutrophils # Man Monocytes # (Manual) PT INR Activated Clotting Time POC ABG pH POC ABG pCO2 POC ABG pO2 Sodium Potassium Chloride Carbon Dioxide BUN Creatinine Glucose POC Glucose 130 H 159 H 146 H Calcium Magnesium Direct Bilirubin AST ALT Alkaline Phosphatase Total Creatine Kinase CK-MB (CK-2) CK-MB (CK-2) Rel Index Troponin T C-Reactive Protein Total Protein Albumin Triglycerides Ur Specific [place] Urine WBC (Auto) Miscellaneous Test 04/06/17 04/06/17 04/07/17 13:11 16:54 11:45 WBC RBC Hgb Hct MCV MCH Plt Count Lymph % (Auto) [place] % (Auto) Eos % (Auto) Baso % (Auto) Lymph # Baso # Seg Neutrophils % Lymphocytes % (Manual) Monocytes % (Manual) Nucleated RBC % Seg Neutrophils # Seg Neutrophils # Man Monocytes # (Manual) PT INR Activated Clotting Time POC ABG pH 7.517 H POC ABG pCO2 32.1 L POC ABG pO2 Sodium Potassium Chloride Carbon Dioxide BUN Creatinine Glucose POC Glucose 132 H 123 H Calcium Magnesium Direct Bilirubin AST ALT Alkaline Phosphatase Total Creatine Kinase CK-MB (CK-2) CK-MB (CK-2) Rel Index Troponin T C-Reactive Protein Total Protein Albumin Triglycerides Ur Specific [place] Urine WBC (Auto) Miscellaneous Test 04/07/17 04/07/17 04/07/17 12:51 17:40 23:55 WBC RBC Hgb Hct MCV MCH Plt Count Lymph % (Auto) [place] % (Auto) Eos % (Auto) Baso % (Auto) Lymph # Baso # Seg Neutrophils % Lymphocytes % (Manual) Monocytes % (Manual) Nucleated RBC % Seg Neutrophils # Seg Neutrophils # Man Monocytes # (Manual) PT INR Activated Clotting Time POC ABG pH POC ABG pCO2 POC ABG pO2 Sodium Potassium Chloride Carbon Dioxide BUN Creatinine Glucose POC Glucose 138 H 154 H 143 H Calcium Magnesium Direct Bilirubin AST ALT Alkaline Phosphatase Total Creatine Kinase CK-MB (CK-2) CK-MB (CK-2) Rel Index Troponin T C-Reactive Protein Total Protein Albumin Triglycerides Ur Specific [place] Urine WBC (Auto) Miscellaneous Test 04/08/17 04/08/17 04/08/17 05:27 11:14 17:44 WBC RBC Hgb Hct MCV MCH Plt Count Lymph % (Auto) [place] % (Auto) Eos % (Auto) Baso % (Auto) Lymph # Baso # Seg Neutrophils % Lymphocytes % (Manual) Monocytes % (Manual) Nucleated RBC % Seg Neutrophils # Seg Neutrophils # Man Monocytes # (Manual) PT INR Activated Clotting Time POC ABG pH POC ABG pCO2 POC ABG pO2 Sodium Potassium Chloride Carbon Dioxide BUN Creatinine Glucose POC Glucose 142 H 153 H 129 H Calcium Magnesium Direct Bilirubin AST ALT Alkaline Phosphatase Total Creatine Kinase CK-MB (CK-2) CK-MB (CK-2) Rel Index Troponin T C-Reactive Protein Total Protein Albumin Triglycerides Ur Specific [place] Urine WBC (Auto) Miscellaneous Test 04/09/17 04/09/17 04/09/17 08:20 11:21 17:37 WBC RBC Hgb Hct MCV MCH Plt Count Lymph % (Auto) [place] % (Auto) Eos % (Auto) Baso % (Auto) Lymph # Baso # Seg Neutrophils % Lymphocytes % (Manual) Monocytes % (Manual) Nucleated RBC % Seg Neutrophils # Seg Neutrophils # Man Monocytes # (Manual) PT INR Activated Clotting Time POC ABG pH POC ABG pCO2 POC ABG pO2 Sodium 147 H Potassium Chloride 108.8 H Carbon Dioxide BUN 39 H Creatinine 0.5 L Glucose 138 H POC Glucose 152 H 109 H Calcium Magnesium Direct Bilirubin AST ALT Alkaline Phosphatase Total Creatine Kinase CK-MB (CK-2) CK-MB (CK-2) Rel Index Troponin T C-Reactive Protein Total Protein Albumin Triglycerides Ur Specific [place] Urine WBC (Auto) Miscellaneous Test 04/10/17 04/10/17 04/10/17 00:13 04:16 04:16 WBC RBC Hgb 11.5 L Hct MCV 96 H MCH Plt Count 103 L Lymph % (Auto) 11.1 L [place] % (Auto) Eos % (Auto) Baso % (Auto) Lymph # Baso # Seg Neutrophils % 81.5 H Lymphocytes % (Manual) Monocytes % (Manual) Nucleated RBC % Seg Neutrophils # 8.8 H Seg Neutrophils # Man Monocytes # (Manual) PT INR Activated Clotting Time POC ABG pH POC ABG pCO2 POC ABG pO2 Sodium 148 H Potassium Chloride 109.0 H Carbon Dioxide BUN 36 H Creatinine 0.5 L Glucose 131 H POC Glucose 127 H Calcium 8.1 L Magnesium 2.40 H Direct Bilirubin AST 206 H ALT 228 H Alkaline Phosphatase 178 H Total Creatine Kinase CK-MB (CK-2) CK-MB (CK-2) Rel Index Troponin T C-Reactive Protein Total Protein Albumin 2.8 L Triglycerides Ur Specific [place] Urine WBC (Auto) Miscellaneous Test 04/10/17 04/10/1718 06:01 11:57 18:27 WBC RBC Hgb Hct MCV MCH Plt Count Lymph % (Auto) [place] % (Auto) Eos % (Auto) Baso % (Auto) Lymph # Baso # Seg Neutrophils % Lymphocytes % (Manual) Monocytes % (Manual) Nucleated RBC % Seg Neutrophils # Seg Neutrophils # Man Monocytes # (Manual) PT INR Activated Clotting Time POC ABG pH POC ABG pCO2 POC ABG pO2 Sodium Potassium Chloride Carbon Dioxide BUN Creatinine Glucose POC Glucose 108 H 154 H 130 H Calcium Magnesium Direct Bilirubin AST ALT Alkaline Phosphatase Total Creatine Kinase CK-MB (CK-2) CK-MB (CK-2) Rel Index Troponin T C-Reactive Protein Total Protein Albumin Triglycerides Ur Specific [place] Urine WBC (Auto) Miscellaneous Test 04/11/17 04/11/17 04/12/17 12:25 17:10 00:22 WBC RBC Hgb Hct MCV MCH Plt Count Lymph % (Auto) [place] % (Auto) Eos % (Auto) Baso % (Auto) Lymph # Baso # Seg Neutrophils % Lymphocytes % (Manual) Monocytes % (Manual) Nucleated RBC % Seg Neutrophils # Seg Neutrophils # Man Monocytes # (Manual) PT INR Activated Clotting Time POC ABG pH POC ABG pCO2 POC ABG pO2 Sodium Potassium Chloride Carbon Dioxide BUN Creatinine Glucose POC Glucose 107 H 129 H 128 H Calcium Magnesium Direct Bilirubin AST ALT Alkaline Phosphatase Total Creatine Kinase CK-MB (CK-2) CK-MB (CK-2) Rel Index Troponin T C-Reactive Protein Total Protein Albumin Triglycerides Ur Specific [place] Urine WBC (Auto) Miscellaneous Test 04/12/17 04/12/17 04/12/17 05:00 11:57 17:47 WBC RBC Hgb Hct MCV MCH Plt Count Lymph % (Auto) [place] % (Auto) Eos % (Auto) Baso % (Auto) Lymph # Baso # Seg Neutrophils % Lymphocytes % (Manual) Monocytes % (Manual) Nucleated RBC % Seg Neutrophils # Seg Neutrophils # Man Monocytes # (Manual) PT INR Activated Clotting Time POC ABG pH POC ABG pCO2 POC ABG pO2 Sodium Potassium Chloride Carbon Dioxide BUN Creatinine Glucose POC Glucose 140 H 142 H Calcium Magnesium Direct Bilirubin AST 158 H ALT 184 H Alkaline Phosphatase 170 H Total Creatine Kinase CK-MB (CK-2) CK-MB (CK-2) Rel Index Troponin T C-Reactive Protein Total Protein Albumin 2.8 L Triglycerides Ur Specific [place] Urine WBC (Auto) Miscellaneous Test 04/12/17 04/12/17 04/13/17 21:36 21:36 01:37 WBC RBC Hgb Hct MCV MCH Plt Count Lymph % (Auto) [place] % (Auto) Eos % (Auto) Baso % (Auto) Lymph # Baso # Seg Neutrophils % Lymphocytes % (Manual) Monocytes % (Manual) Nucleated RBC % Seg Neutrophils # Seg Neutrophils # Man Monocytes # (Manual) PT INR Activated Clotting Time POC ABG pH POC ABG pCO2 POC ABG pO2 Sodium Potassium Chloride Carbon Dioxide BUN Creatinine Glucose POC Glucose 126 H Calcium Magnesium Direct Bilirubin AST ALT Alkaline Phosphatase Total Creatine Kinase 1404 H CK-MB (CK-2) 8.0 H CK-MB (CK-2) Rel Index Troponin T 0.767 H* C-Reactive Protein Total Protein Albumin Triglycerides Ur Specific [place] Urine WBC (Auto) Miscellaneous Test 04/13/17 04/13/17 04/13/17 04:45 04:52 12:17 WBC RBC Hgb Hct MCV MCH Plt Count Lymph % (Auto) [place] % (Auto) Eos % (Auto) Baso % (Auto) Lymph # Baso # Seg Neutrophils % Lymphocytes % (Manual) Monocytes % (Manual) Nucleated RBC % Seg Neutrophils # Seg Neutrophils # Man Monocytes # (Manual) PT INR Activated Clotting Time POC ABG pH POC ABG pCO2 POC ABG pO2 Sodium 148 H Potassium Chloride 112.8 H Carbon Dioxide BUN 33 H Creatinine 0.4 L Glucose 121 H POC Glucose 126 H 149 H Calcium Magnesium Direct Bilirubin AST 160 H ALT 189 H Alkaline Phosphatase 166 H Total Creatine Kinase CK-MB (CK-2) CK-MB (CK-2) Rel Index Troponin T C-Reactive Protein Total Protein Albumin 2.6 L Triglycerides Ur Specific [place] Urine WBC (Auto) Miscellaneous Test 04/13/17 04/14/17 04/14/17 17:45 00:20 00:45 WBC RBC Hgb Hct MCV MCH Plt Count Lymph % (Auto) [place] % (Auto) Eos % (Auto) Baso % (Auto) Lymph # Baso # Seg Neutrophils % Lymphocytes % (Manual) Monocytes % (Manual) Nucleated RBC % Seg Neutrophils # Seg Neutrophils # Man Monocytes # (Manual) PT INR Activated Clotting Time POC ABG pH POC ABG pCO2 POC ABG pO2 Sodium Potassium Chloride Carbon Dioxide BUN Creatinine Glucose POC Glucose 130 H 144 H 144 H Calcium Magnesium Direct Bilirubin AST ALT Alkaline Phosphatase Total Creatine Kinase CK-MB (CK-2) CK-MB (CK-2) Rel Index Troponin T C-Reactive Protein Total Protein Albumin Triglycerides Ur Specific [place] Urine WBC (Auto) Miscellaneous Test 04/14/17 04/14/17 04/14/17 05:40 11:06 11:31 WBC RBC Hgb Hct MCV MCH Plt Count Lymph % (Auto) [place] % (Auto) Eos % (Auto) Baso % (Auto) Lymph # Baso # Seg Neutrophils % Lymphocytes % (Manual) Monocytes % (Manual) Nucleated RBC % Seg Neutrophils # Seg Neutrophils # Man Monocytes # (Manual) PT INR Activated Clotting Time POC ABG pH POC ABG pCO2 POC ABG pO2 Sodium Potassium Chloride Carbon Dioxide BUN Creatinine Glucose POC Glucose 139 H 123 H Calcium Magnesium Direct Bilirubin AST ALT Alkaline Phosphatase Total Creatine Kinase CK-MB (CK-2) CK-MB (CK-2) Rel Index Troponin T C-Reactive Protein Total Protein Albumin Triglycerides Ur Specific [place] 1.033 H Urine WBC (Auto) > 182.0 H Miscellaneous Test 04/14/17 04/14/17 04/15/17 18:00 23:52 05:15 WBC 12.5 H RBC 3.38 L Hgb 10.6 L Hct 32.7 L MCV 97 H MCH Plt Count 107 L Lymph % (Auto) 8.7 L [place] % (Auto) Eos % (Auto) Baso % (Auto) Lymph # 1.1 L Baso # Seg Neutrophils % 86.1 H Lymphocytes % (Manual) Monocytes % (Manual) Nucleated RBC % Seg Neutrophils # 10.7 H Seg Neutrophils # Man Monocytes # (Manual) PT INR Activated Clotting Time POC ABG pH POC ABG pCO2 POC ABG pO2 Sodium Potassium Chloride Carbon Dioxide BUN Creatinine Glucose POC Glucose 133 H 133 H Calcium Magnesium Direct Bilirubin AST ALT Alkaline Phosphatase Total Creatine Kinase CK-MB (CK-2) CK-MB (CK-2) Rel Index Troponin T C-Reactive Protein Total Protein Albumin Triglycerides Ur Specific [place] Urine WBC (Auto) Miscellaneous Test 04/15/17 04/15/17 04/15/17 05:15 05:25 11:50 WBC RBC Hgb Hct MCV MCH Plt Count Lymph % (Auto) [place] % (Auto) Eos % (Auto) Baso % (Auto) Lymph # Baso # Seg Neutrophils % Lymphocytes % (Manual) Monocytes % (Manual) Nucleated RBC % Seg Neutrophils # Seg Neutrophils # Man Monocytes # (Manual) PT INR Activated Clotting Time POC ABG pH POC ABG pCO2 POC ABG pO2 Sodium 149 H Potassium 3.5 L Chloride 114.1 H Carbon Dioxide 21 L BUN 29 H Creatinine 0.4 L Glucose 128 H POC Glucose 133 H 107 H Calcium 8.3 L Magnesium Direct Bilirubin 0.4 H AST 149 H ALT 182 H Alkaline Phosphatase 143 H Total Creatine Kinase CK-MB (CK-2) CK-MB (CK-2) Rel Index Troponin T C-Reactive Protein Total Protein Albumin 2.5 L Triglycerides Ur Specific [place] Urine WBC (Auto) Miscellaneous Test 04/15/17 04/16/17 04/16/17 16:55 00:02 03:17 WBC RBC 3.39 L Hgb 10.5 L Hct 32.4 L MCV 96 H MCH Plt Count 106 L Lymph % (Auto) 6.7 L [place] % (Auto) Eos % (Auto) Baso % (Auto) Lymph # 0.6 L Baso # Seg Neutrophils % 86.8 H Lymphocytes % (Manual) Monocytes % (Manual) Nucleated RBC % Seg Neutrophils # 8.2 H Seg Neutrophils # Man Monocytes # (Manual) PT INR Activated Clotting Time POC ABG pH POC ABG pCO2 POC ABG pO2 Sodium Potassium Chloride Carbon Dioxide BUN Creatinine Glucose POC Glucose 146 H 148 H Calcium Magnesium Direct Bilirubin AST ALT Alkaline Phosphatase Total Creatine Kinase CK-MB (CK-2) CK-MB (CK-2) Rel Index Troponin T C-Reactive Protein Total Protein Albumin Triglycerides Ur Specific [place] Urine WBC (Auto) Miscellaneous Test 04/16/17 04/16/17 04/16/17 03:17 05:19 11:13 WBC RBC Hgb Hct MCV MCH Plt Count Lymph % (Auto) [place] % (Auto) Eos % (Auto) Baso % (Auto) Lymph # Baso # Seg Neutrophils % Lymphocytes % (Manual) Monocytes % (Manual) Nucleated RBC % Seg Neutrophils # Seg Neutrophils # Man Monocytes # (Manual) PT INR Activated Clotting Time POC ABG pH POC ABG pCO2 POC ABG pO2 Sodium 149 H Potassium Chloride 111.1 H Carbon Dioxide 20 L BUN 27 H Creatinine 0.3 L Glucose 156 H POC Glucose 171 H 169 H Calcium 8.3 L Magnesium Direct Bilirubin AST ALT Alkaline Phosphatase Total Creatine Kinase CK-MB (CK-2) CK-MB (CK-2) Rel Index Troponin T C-Reactive Protein Total Protein Albumin Triglycerides Ur Specific [place] Urine WBC (Auto) Miscellaneous Test 04/16/17 04/17/17 04/17/17 17:03 00:00 05:09 WBC RBC Hgb Hct MCV MCH Plt Count Lymph % (Auto) [place] % (Auto) Eos % (Auto) Baso % (Auto) Lymph # Baso # Seg Neutrophils % Lymphocytes % (Manual) Monocytes % (Manual) Nucleated RBC % Seg Neutrophils # Seg Neutrophils # Man Monocytes # (Manual) PT INR Activated Clotting Time POC ABG pH POC ABG pCO2 POC ABG pO2 Sodium Potassium Chloride Carbon Dioxide BUN Creatinine Glucose POC Glucose 151 H 165 H 145 H Calcium Magnesium Direct Bilirubin AST ALT Alkaline Phosphatase Total Creatine Kinase CK-MB (CK-2) CK-MB (CK-2) Rel Index Troponin T C-Reactive Protein Total Protein Albumin Triglycerides Ur Specific [place] Urine WBC (Auto) Miscellaneous Test 04/17/17 04/17/17 04/18/17 11:38 17:47 00:01 WBC RBC Hgb Hct MCV MCH Plt Count Lymph % (Auto) [place] % (Auto) Eos % (Auto) Baso % (Auto) Lymph # Baso # Seg Neutrophils % Lymphocytes % (Manual) Monocytes % (Manual) Nucleated RBC % Seg Neutrophils # Seg Neutrophils # Man Monocytes # (Manual) PT INR Activated Clotting Time POC ABG pH POC ABG pCO2 POC ABG pO2 Sodium Potassium Chloride Carbon Dioxide BUN Creatinine Glucose POC Glucose 170 H 161 H 131 H Calcium Magnesium Direct Bilirubin AST ALT Alkaline Phosphatase Total Creatine Kinase CK-MB (CK-2) CK-MB (CK-2) Rel Index Troponin T C-Reactive Protein Total Protein Albumin Triglycerides Ur Specific [place] Urine WBC (Auto) Miscellaneous Test 04/18/17 04/18/17 04/18/17 03:55 03:55 05:30 WBC RBC 3.05 L Hgb 9.8 L Hct 29.0 L MCV 95 H MCH Plt Count 113 L Lymph % (Auto) [place] % (Auto) Eos % (Auto) 5.3 H Baso % (Auto) Lymph # Baso # Seg Neutrophils % 71.5 H Lymphocytes % (Manual) Monocytes % (Manual) Nucleated RBC % Seg Neutrophils # Seg Neutrophils # Man Monocytes # (Manual) PT INR Activated Clotting Time POC ABG pH 7.460 H POC ABG pCO2 30.8 L POC ABG pO2 129 H Sodium Potassium Chloride Carbon Dioxide 21 L BUN 25 H Creatinine 0.4 L Glucose 123 H POC Glucose Calcium 8.3 L Magnesium Direct Bilirubin AST ALT Alkaline Phosphatase Total Creatine Kinase CK-MB (CK-2) CK-MB (CK-2) Rel Index Troponin T C-Reactive Protein Total Protein Albumin Triglycerides Ur Specific [place] Urine WBC (Auto) Miscellaneous Test 04/18/17 04/18/17 04/19/17 17:10 23:40 04:36 WBC RBC 3.21 L Hgb 10.2 L Hct 30.4 L MCV 95 H MCH Plt Count 131 L Lymph % (Auto) 12.1 L [place] % (Auto) Eos % (Auto) 4.7 H Baso % (Auto) 2.4 H Lymph # 0.9 L Baso # 0.2 H Seg Neutrophils % 75.0 H Lymphocytes % (Manual) Monocytes % (Manual) Nucleated RBC % Seg Neutrophils # Seg Neutrophils # Man Monocytes # (Manual) PT INR Activated Clotting Time POC ABG pH POC ABG pCO2 POC ABG pO2 Sodium Potassium Chloride Carbon Dioxide BUN Creatinine Glucose POC Glucose 135 H 157 H Calcium Magnesium Direct Bilirubin AST ALT Alkaline Phosphatase Total Creatine Kinase CK-MB (CK-2) CK-MB (CK-2) Rel Index Troponin T C-Reactive Protein Total Protein Albumin Triglycerides Ur Specific [place] Urine WBC (Auto) Miscellaneous Test 04/19/17 04/19/17 04/19/17 04:36 05:12 06:50 WBC RBC Hgb Hct MCV MCH Plt Count Lymph % (Auto) [place] % (Auto) Eos % (Auto) Baso % (Auto) Lymph # Baso # Seg Neutrophils % Lymphocytes % (Manual) Monocytes % (Manual) Nucleated RBC % Seg Neutrophils # Seg Neutrophils # Man Monocytes # (Manual) PT INR Activated Clotting Time POC ABG pH 7.516 H POC ABG pCO2 28.0 L POC ABG pO2 Sodium Potassium Chloride Carbon Dioxide 21 L BUN 23 H Creatinine 0.2 L Glucose 137 H POC Glucose 131 H Calcium 7.9 L Magnesium Direct Bilirubin AST ALT Alkaline Phosphatase Total Creatine Kinase CK-MB (CK-2) CK-MB (CK-2) Rel Index Troponin T C-Reactive Protein Total Protein Albumin Triglycerides Ur Specific [place] Urine WBC (Auto) Miscellaneous Test 04/19/17 04/19/17 04/20/17 12:36 17:42 00:12 WBC RBC Hgb Hct MCV MCH Plt Count Lymph % (Auto) [place] % (Auto) Eos % (Auto) Baso % (Auto) Lymph # Baso # Seg Neutrophils % Lymphocytes % (Manual) Monocytes % (Manual) Nucleated RBC % Seg Neutrophils # Seg Neutrophils # Man Monocytes # (Manual) PT INR Activated Clotting Time POC ABG pH POC ABG pCO2 POC ABG pO2 Sodium Potassium Chloride Carbon Dioxide BUN Creatinine Glucose POC Glucose 128 H 140 H 132 H Calcium Magnesium Direct Bilirubin AST ALT Alkaline Phosphatase Total Creatine Kinase CK-MB (CK-2) CK-MB (CK-2) Rel Index Troponin T C-Reactive Protein Total Protein Albumin Triglycerides Ur Specific [place] Urine WBC (Auto) Miscellaneous Test 04/20/17 04/20/17 04/20/17 03:35 03:35 05:10 WBC RBC 3.34 L Hgb 10.4 L Hct 31.6 L MCV 95 H MCH Plt Count Lymph % (Auto) 12.9 L [place] % (Auto) Eos % (Auto) Baso % (Auto) Lymph # Baso # Seg Neutrophils % 77.3 H Lymphocytes % (Manual) Monocytes % (Manual) Nucleated RBC % Seg Neutrophils # Seg Neutrophils # Man Monocytes # (Manual) PT INR Activated Clotting Time POC ABG pH POC ABG pCO2 POC ABG pO2 Sodium Potassium Chloride Carbon Dioxide BUN Creatinine 0.3 L Glucose 155 H POC Glucose 135 H Calcium 7.8 L Magnesium Direct Bilirubin AST ALT Alkaline Phosphatase Total Creatine Kinase CK-MB (CK-2) CK-MB (CK-2) Rel Index Troponin T C-Reactive Protein Total Protein Albumin Triglycerides Ur Specific [place] Urine WBC (Auto) Miscellaneous Test 04/20/17 04/20/17 04/21/17 12:49 18:21 00:05 WBC RBC Hgb Hct MCV MCH Plt Count Lymph % (Auto) [place] % (Auto) Eos % (Auto) Baso % (Auto) Lymph # Baso # Seg Neutrophils % Lymphocytes % (Manual) Monocytes % (Manual) Nucleated RBC % Seg Neutrophils # Seg Neutrophils # Man Monocytes # (Manual) PT INR Activated Clotting Time POC ABG pH POC ABG pCO2 POC ABG pO2 Sodium Potassium Chloride Carbon Dioxide BUN Creatinine Glucose POC Glucose 155 H 165 H 141 H Calcium Magnesium Direct Bilirubin AST ALT Alkaline Phosphatase Total Creatine Kinase CK-MB (CK-2) CK-MB (CK-2) Rel Index Troponin T C-Reactive Protein Total Protein Albumin Triglycerides Ur Specific [place] Urine WBC (Auto) Miscellaneous Test 04/21/17 04/21/17 04/21/17 06:00 12:11 17:04 WBC RBC Hgb Hct MCV MCH Plt Count Lymph % (Auto) [place] % (Auto) Eos % (Auto) Baso % (Auto) Lymph # Baso # Seg Neutrophils % Lymphocytes % (Manual) Monocytes % (Manual) Nucleated RBC % Seg Neutrophils # Seg Neutrophils # Man Monocytes # (Manual) PT INR Activated Clotting Time POC ABG pH POC ABG pCO2 POC ABG pO2 Sodium Potassium Chloride Carbon Dioxide BUN Creatinine Glucose POC Glucose 152 H 165 H 156 H Calcium Magnesium Direct Bilirubin AST ALT Alkaline Phosphatase Total Creatine Kinase CK-MB (CK-2) CK-MB (CK-2) Rel Index Troponin T C-Reactive Protein Total Protein Albumin Triglycerides Ur Specific [place] Urine WBC (Auto) Miscellaneous Test 04/21/17 04/21/17 04/22/17 22:00 23:59 05:49 WBC RBC Hgb Hct MCV MCH Plt Count Lymph % (Auto) [place] % (Auto) Eos % (Auto) Baso % (Auto) Lymph # Baso # Seg Neutrophils % Lymphocytes % (Manual) Monocytes % (Manual) Nucleated RBC % Seg Neutrophils # Seg Neutrophils # Man Monocytes # (Manual) PT INR Activated Clotting Time POC ABG pH POC ABG pCO2 POC ABG pO2 Sodium Potassium Chloride Carbon Dioxide BUN Creatinine Glucose POC Glucose 166 H 173 H Calcium Magnesium Direct Bilirubin AST ALT Alkaline Phosphatase Total Creatine Kinase CK-MB (CK-2) CK-MB (CK-2) Rel Index Troponin T C-Reactive Protein Total Protein Albumin Triglycerides Ur Specific [place] Urine WBC (Auto) 10.0 H Miscellaneous Test 04/22/17 04/22/17 04/23/17 11:11 18:04 00:37 WBC RBC Hgb Hct MCV MCH Plt Count Lymph % (Auto) [place] % (Auto) Eos % (Auto) Baso % (Auto) Lymph # Baso # Seg Neutrophils % Lymphocytes % (Manual) Monocytes % (Manual) Nucleated RBC % Seg Neutrophils # Seg Neutrophils # Man Monocytes # (Manual) PT INR Activated Clotting Time POC ABG pH POC ABG pCO2 POC ABG pO2 Sodium Potassium Chloride Carbon Dioxide BUN Creatinine Glucose POC Glucose 172 H 140 H 135 H Calcium Magnesium Direct Bilirubin AST ALT Alkaline Phosphatase Total Creatine Kinase CK-MB (CK-2) CK-MB (CK-2) Rel Index Troponin T C-Reactive Protein Total Protein Albumin Triglycerides Ur Specific [place] Urine WBC (Auto) Miscellaneous Test 04/23/17 04/23/17 04/23/17 05:33 06:20 11:10 WBC RBC 3.19 L Hgb 9.9 L Hct 30.0 L MCV MCH Plt Count Lymph % (Auto) 8.0 L [place] % (Auto) Eos % (Auto) Baso % (Auto) Lymph # 0.8 L Baso # Seg Neutrophils % 84.5 H Lymphocytes % (Manual) Monocytes % (Manual) Nucleated RBC % Seg Neutrophils # 8.2 H Seg Neutrophils # Man Monocytes # (Manual) PT INR Activated Clotting Time POC ABG pH POC ABG pCO2 POC ABG pO2 Sodium Potassium Chloride Carbon Dioxide BUN Creatinine Glucose POC Glucose 134 H 134 H Calcium Magnesium Direct Bilirubin AST ALT Alkaline Phosphatase Total Creatine Kinase CK-MB (CK-2) CK-MB (CK-2) Rel Index Troponin T C-Reactive Protein Total Protein Albumin Triglycerides Ur Specific [place] Urine WBC (Auto) Miscellaneous Test 04/23/17 04/24/17 04/24/17 17:26 00:53 06:46 WBC RBC Hgb Hct MCV MCH Plt Count Lymph % (Auto) [place] % (Auto) Eos % (Auto) Baso % (Auto) Lymph # Baso # Seg Neutrophils % Lymphocytes % (Manual) Monocytes % (Manual) Nucleated RBC % Seg Neutrophils # Seg Neutrophils # Man Monocytes # (Manual) PT INR Activated Clotting Time POC ABG pH POC ABG pCO2 POC ABG pO2 Sodium Potassium Chloride Carbon Dioxide BUN Creatinine Glucose POC Glucose 164 H 146 H 125 H Calcium Magnesium Direct Bilirubin AST ALT Alkaline Phosphatase Total Creatine Kinase CK-MB (CK-2) CK-MB (CK-2) Rel Index Troponin T C-Reactive Protein Total Protein Albumin Triglycerides Ur Specific [place] Urine WBC (Auto) Miscellaneous Test 04/24/17 04/24/17 04/24/17 11:55 17:50 23:36 WBC RBC Hgb Hct MCV MCH Plt Count Lymph % (Auto) [place] % (Auto) Eos % (Auto) Baso % (Auto) Lymph # Baso # Seg Neutrophils % Lymphocytes % (Manual) Monocytes % (Manual) Nucleated RBC % Seg Neutrophils # Seg Neutrophils # Man Monocytes # (Manual) PT INR Activated Clotting Time POC ABG pH POC ABG pCO2 POC ABG pO2 Sodium Potassium Chloride Carbon Dioxide BUN Creatinine Glucose POC Glucose 156 H 146 H 131 H Calcium Magnesium Direct Bilirubin AST ALT Alkaline Phosphatase Total Creatine Kinase CK-MB (CK-2) CK-MB (CK-2) Rel Index Troponin T C-Reactive Protein Total Protein Albumin Triglycerides Ur Specific [place] Urine WBC (Auto) Miscellaneous Test 04/25/17 04/25/17 04/25/17 04:51 05:16 07:07 WBC RBC Hgb Hct MCV MCH Plt Count Lymph % (Auto) [place] % (Auto) Eos % (Auto) Baso % (Auto) Lymph # Baso # Seg Neutrophils % Lymphocytes % (Manual) Monocytes % (Manual) Nucleated RBC % Seg Neutrophils # Seg Neutrophils # Man Monocytes # (Manual) PT INR Activated Clotting Time POC ABG pH POC ABG pCO2 POC ABG pO2 Sodium Potassium Chloride Carbon Dioxide BUN Creatinine Glucose POC Glucose 139 H Calcium Magnesium Direct Bilirubin AST 105 H ALT 204 H Alkaline Phosphatase 189 H Total Creatine Kinase CK-MB (CK-2) CK-MB (CK-2) Rel Index Troponin T C-Reactive Protein Total Protein Albumin 2.4 L Triglycerides Ur Specific [place] Urine WBC (Auto) Miscellaneous Test Flexitest 1 H 04/25/17 04/25/17 04/25/17 12:29 17:23 23:32 WBC RBC Hgb Hct MCV MCH Plt Count Lymph % (Auto) [place] % (Auto) Eos % (Auto) Baso % (Auto) Lymph # Baso # Seg Neutrophils % Lymphocytes % (Manual) Monocytes % (Manual) Nucleated RBC % Seg Neutrophils # Seg Neutrophils # Man Monocytes # (Manual) PT INR Activated Clotting Time POC ABG pH POC ABG pCO2 POC ABG pO2 Sodium Potassium Chloride Carbon Dioxide BUN Creatinine Glucose POC Glucose 132 H 133 H 128 H Calcium Magnesium Direct Bilirubin AST ALT Alkaline Phosphatase Total Creatine Kinase CK-MB (CK-2) CK-MB (CK-2) Rel Index Troponin T C-Reactive Protein Total Protein Albumin Triglycerides Ur Specific [place] Urine WBC (Auto) Miscellaneous Test 04/26/17 04/26/17 04/26/17 05:24 11:28 17:09 WBC RBC Hgb Hct MCV MCH Plt Count Lymph % (Auto) [place] % (Auto) Eos % (Auto) Baso % (Auto) Lymph # Baso # Seg Neutrophils % Lymphocytes % (Manual) Monocytes % (Manual) Nucleated RBC % Seg Neutrophils # Seg Neutrophils # Man Monocytes # (Manual) PT INR Activated Clotting Time POC ABG pH POC ABG pCO2 POC ABG pO2 Sodium Potassium Chloride Carbon Dioxide BUN Creatinine Glucose POC Glucose 132 H 146 H 141 H Calcium Magnesium Direct Bilirubin AST ALT Alkaline Phosphatase Total Creatine Kinase CK-MB (CK-2) CK-MB (CK-2) Rel Index Troponin T C-Reactive Protein Total Protein Albumin Triglycerides Ur Specific [place] Urine WBC (Auto) Miscellaneous Test 04/26/17 04/27/17 04/27/17 23:52 05:40 05:40 WBC RBC 3.22 L Hgb 10.0 L Hct 29.9 L MCV MCH Plt Count Lymph % (Auto) [place] % (Auto) Eos % (Auto) Baso % (Auto) Lymph # Baso # Seg Neutrophils % 76.6 H Lymphocytes % (Manual) Monocytes % (Manual) Nucleated RBC % Seg Neutrophils # Seg Neutrophils # Man Monocytes # (Manual) PT INR Activated Clotting Time POC ABG pH POC ABG pCO2 POC ABG pO2 Sodium Potassium Chloride Carbon Dioxide BUN Creatinine Glucose POC Glucose 140 H Calcium Magnesium Direct Bilirubin AST 66 H ALT 137 H Alkaline Phosphatase 169 H Total Creatine Kinase CK-MB (CK-2) CK-MB (CK-2) Rel Index Troponin T C-Reactive Protein Total Protein 6.2 L Albumin 2.6 L Triglycerides Ur Specific [place] Urine WBC (Auto) Miscellaneous Test 04/27/17 04/27/17 04/27/17 05:40 06:10 11:13 WBC RBC Hgb Hct MCV MCH Plt Count Lymph % (Auto) [place] % (Auto) Eos % (Auto) Baso % (Auto) Lymph # Baso # Seg Neutrophils % Lymphocytes % (Manual) Monocytes % (Manual) Nucleated RBC % Seg Neutrophils # Seg Neutrophils # Man Monocytes # (Manual) PT INR Activated Clotting Time POC ABG pH POC ABG pCO2 POC ABG pO2 Sodium Potassium Chloride Carbon Dioxide BUN Creatinine 0.2 L Glucose 139 H POC Glucose 130 H 151 H Calcium Magnesium Direct Bilirubin AST ALT Alkaline Phosphatase Total Creatine Kinase CK-MB (CK-2) CK-MB (CK-2) Rel Index Troponin T C-Reactive Protein Total Protein Albumin Triglycerides Ur Specific [place] Urine WBC (Auto) Miscellaneous Test 02/01/18 02/01/18 02/02/18 17:37 23:19 05:24 WBC RBC Hgb Hct MCV MCH Plt Count Lymph % (Auto) [place] % (Auto) Eos % (Auto) Baso % (Auto) Lymph # Baso # Seg Neutrophils % Lymphocytes % (Manual) Monocytes % (Manual) Nucleated RBC % Seg Neutrophils # Seg Neutrophils # Man Monocytes # (Manual) PT INR Activated Clotting Time POC ABG pH POC ABG pCO2 POC ABG pO2 Sodium Potassium Chloride Carbon Dioxide BUN Creatinine Glucose POC Glucose 159 H 130 H 132 H Calcium Magnesium Direct Bilirubin AST ALT Alkaline Phosphatase Total Creatine Kinase CK-MB (CK-2) CK-MB (CK-2) Rel Index Troponin T C-Reactive Protein Total Protein Albumin Triglycerides Ur Specific [place] Urine WBC (Auto) Miscellaneous Test 04/28/17 04/28/17 04/28/17 11:15 17:38 23:23 WBC RBC Hgb Hct MCV MCH Plt Count Lymph % (Auto) [place] % (Auto) Eos % (Auto) Baso % (Auto) Lymph # Baso # Seg Neutrophils % Lymphocytes % (Manual) Monocytes % (Manual) Nucleated RBC % Seg Neutrophils # Seg Neutrophils # Man Monocytes # (Manual) PT INR Activated Clotting Time POC ABG pH POC ABG pCO2 POC ABG pO2 Sodium Potassium Chloride Carbon Dioxide BUN Creatinine Glucose POC Glucose 162 H 133 H 138 H Calcium Magnesium Direct Bilirubin AST ALT Alkaline Phosphatase Total Creatine Kinase CK-MB (CK-2) CK-MB (CK-2) Rel Index Troponin T C-Reactive Protein Total Protein Albumin Triglycerides Ur Specific [place] Urine WBC (Auto) Miscellaneous Test 04/29/17 04/29/17 04/29/17 05:15 12:55 17:21 WBC RBC Hgb Hct MCV MCH Plt Count Lymph % (Auto) [place] % (Auto) Eos % (Auto) Baso % (Auto) Lymph # Baso # Seg Neutrophils % Lymphocytes % (Manual) Monocytes % (Manual) Nucleated RBC % Seg Neutrophils # Seg Neutrophils # Man Monocytes # (Manual) PT INR Activated Clotting Time POC ABG pH POC ABG pCO2 POC ABG pO2 Sodium Potassium Chloride Carbon Dioxide BUN Creatinine Glucose POC Glucose 135 H 127 H 138 H Calcium Magnesium Direct Bilirubin AST ALT Alkaline Phosphatase Total Creatine Kinase CK-MB (CK-2) CK-MB (CK-2) Rel Index Troponin T C-Reactive Protein Total Protein Albumin Triglycerides Ur Specific [place] Urine WBC (Auto) Miscellaneous Test 0204/30/17 04/30/17 23:52 04:55 12:22 WBC RBC Hgb Hct MCV MCH Plt Count Lymph % (Auto) [place] % (Auto) Eos % (Auto) Baso % (Auto) Lymph # Baso # Seg Neutrophils % Lymphocytes % (Manual) Monocytes % (Manual) Nucleated RBC % Seg Neutrophils # Seg Neutrophils # Man Monocytes # (Manual) PT INR Activated Clotting Time POC ABG pH POC ABG pCO2 POC ABG pO2 Sodium Potassium Chloride Carbon Dioxide BUN Creatinine Glucose POC Glucose 142 H 146 H 132 H Calcium Magnesium Direct Bilirubin AST ALT Alkaline Phosphatase Total Creatine Kinase CK-MB (CK-2) CK-MB (CK-2) Rel Index Troponin T C-Reactive Protein Total Protein Albumin Triglycerides Ur Specific [place] Urine WBC (Auto) Miscellaneous Test 04/30/17 04/30/17 04/30/17 14:25 17:47 18:20 WBC RBC Hgb Hct MCV MCH Plt Count Lymph % (Auto) [place] % (Auto) Eos % (Auto) Baso % (Auto) Lymph # Baso # Seg Neutrophils % Lymphocytes % (Manual) Monocytes % (Manual) Nucleated RBC % Seg Neutrophils # Seg Neutrophils # Man Monocytes # (Manual) PT INR Activated Clotting Time POC ABG pH 7.551 H POC ABG pCO2 32.7 L POC ABG pO2 Sodium Potassium Chloride Carbon Dioxide BUN 21 H Creatinine 0.2 L Glucose 141 H POC Glucose 139 H Calcium Magnesium Direct Bilirubin AST ALT Alkaline Phosphatase Total Creatine Kinase CK-MB (CK-2) CK-MB (CK-2) Rel Index Troponin T C-Reactive Protein Total Protein Albumin Triglycerides Ur Specific [place] Urine WBC (Auto) Miscellaneous Test 05/01/17 05/01/17 05/01/17 01:26 05:30 05:30 WBC RBC 3.49 L Hgb 10.3 L Hct 31.9 L MCV MCH Plt Count Lymph % (Auto) [place] % (Auto) 8.1 H Eos % (Auto) Baso % (Auto) Lymph # Baso # Seg Neutrophils % 71.3 H Lymphocytes % (Manual) Monocytes % (Manual) Nucleated RBC % Seg Neutrophils # Seg Neutrophils # Man Monocytes # (Manual) PT INR Activated Clotting Time POC ABG pH POC ABG pCO2 POC ABG pO2 Sodium 136 L Potassium Chloride 97.6 L Carbon Dioxide BUN Creatinine 0.2 L Glucose 123 H POC Glucose 116 H Calcium Magnesium Direct Bilirubin AST 71 H ALT 125 H Alkaline Phosphatase 158 H Total Creatine Kinase CK-MB (CK-2) CK-MB (CK-2) Rel Index Troponin T C-Reactive Protein Total Protein Albumin 2.6 L Triglycerides Ur Specific [place] Urine WBC (Auto) Miscellaneous Test 05/01/17 05/01/17 05/02/17 11:59 17:23 00:08 WBC RBC Hgb Hct MCV MCH Plt Count Lymph % (Auto) [place] % (Auto) Eos % (Auto) Baso % (Auto) Lymph # Baso # Seg Neutrophils % Lymphocytes % (Manual) Monocytes % (Manual) Nucleated RBC % Seg Neutrophils # Seg Neutrophils # Man Monocytes # (Manual) PT INR Activated Clotting Time POC ABG pH POC ABG pCO2 POC ABG pO2 Sodium Potassium Chloride Carbon Dioxide BUN Creatinine Glucose POC Glucose 118 H 144 H 122 H Calcium Magnesium Direct Bilirubin AST ALT Alkaline Phosphatase Total Creatine Kinase CK-MB (CK-2) CK-MB (CK-2) Rel Index Troponin T C-Reactive Protein Total Protein Albumin Triglycerides Ur Specific [place] Urine WBC (Auto) Miscellaneous Test 05/02/17 05/02/17 05/02/17 05:50 11:21 17:48 WBC RBC Hgb Hct MCV MCH Plt Count Lymph % (Auto) [place] % (Auto) Eos % (Auto) Baso % (Auto) Lymph # Baso # Seg Neutrophils % Lymphocytes % (Manual) Monocytes % (Manual) Nucleated RBC % Seg Neutrophils # Seg Neutrophils # Man Monocytes # (Manual) PT INR Activated Clotting Time POC ABG pH POC ABG pCO2 POC ABG pO2 Sodium Potassium Chloride Carbon Dioxide BUN Creatinine Glucose POC Glucose 120 H 121 H 140 H Calcium Magnesium Direct Bilirubin AST ALT Alkaline Phosphatase Total Creatine Kinase CK-MB (CK-2) CK-MB (CK-2) Rel Index Troponin T C-Reactive Protein Total Protein Albumin Triglycerides Ur Specific [place] Urine WBC (Auto) Miscellaneous Test 05/02/17 05/03/17 05/03/17 23:12 05:35 11:52 WBC RBC Hgb Hct MCV MCH Plt Count Lymph % (Auto) [place] % (Auto) Eos % (Auto) Baso % (Auto) Lymph # Baso # Seg Neutrophils % Lymphocytes % (Manual) Monocytes % (Manual) Nucleated RBC % Seg Neutrophils # Seg Neutrophils # Man Monocytes # (Manual) PT INR Activated Clotting Time POC ABG pH POC ABG pCO2 POC ABG pO2 Sodium Potassium Chloride Carbon Dioxide BUN Creatinine Glucose POC Glucose 128 H 113 H 126 H Calcium Magnesium Direct Bilirubin AST ALT Alkaline Phosphatase Total Creatine Kinase CK-MB (CK-2) CK-MB (CK-2) Rel Index Troponin T C-Reactive Protein Total Protein Albumin Triglycerides Ur Specific [place] Urine WBC (Auto) Miscellaneous Test 05/03/17 05/03/17 05/04/17 17:29 23:26 04:55 WBC RBC Hgb Hct MCV MCH Plt Count Lymph % (Auto) [place] % (Auto) Eos % (Auto) Baso % (Auto) Lymph # Baso # Seg Neutrophils % Lymphocytes % (Manual) Monocytes % (Manual) Nucleated RBC % Seg Neutrophils # Seg Neutrophils # Man Monocytes # (Manual) PT INR Activated Clotting Time POC ABG pH POC ABG pCO2 POC ABG pO2 Sodium Potassium Chloride Carbon Dioxide BUN Creatinine Glucose POC Glucose 141 H 129 H 126 H Calcium Magnesium Direct Bilirubin AST ALT Alkaline Phosphatase Total Creatine Kinase CK-MB (CK-2) CK-MB (CK-2) Rel Index Troponin T C-Reactive Protein Total Protein Albumin Triglycerides Ur Specific [place] Urine WBC (Auto) Miscellaneous Test 05/04/17 05/04/17 05/05/17 12:09 17:46 00:06 WBC RBC Hgb Hct MCV MCH Plt Count Lymph % (Auto) [place] % (Auto) Eos % (Auto) Baso % (Auto) Lymph # Baso # Seg Neutrophils % Lymphocytes % (Manual) Monocytes % (Manual) Nucleated RBC % Seg Neutrophils # Seg Neutrophils # Man Monocytes # (Manual) PT INR Activated Clotting Time POC ABG pH POC ABG pCO2 POC ABG pO2 Sodium Potassium Chloride Carbon Dioxide BUN Creatinine Glucose POC Glucose 125 H 125 H 110 H Calcium Magnesium Direct Bilirubin AST ALT Alkaline Phosphatase Total Creatine Kinase CK-MB (CK-2) CK-MB (CK-2) Rel Index Troponin T C-Reactive Protein Total Protein Albumin Triglycerides Ur Specific [place] Urine WBC (Auto) Miscellaneous Test 05/05/17 05/05/17 05/05/17 05:48 11:41 16:19 WBC RBC Hgb Hct MCV MCH Plt Count Lymph % (Auto) [place] % (Auto) Eos % (Auto) Baso % (Auto) Lymph # Baso # Seg Neutrophils % Lymphocytes % (Manual) Monocytes % (Manual) Nucleated RBC % Seg Neutrophils # Seg Neutrophils # Man Monocytes # (Manual) PT INR Activated Clotting Time POC ABG pH POC ABG pCO2 POC ABG pO2 Sodium Potassium Chloride Carbon Dioxide BUN Creatinine Glucose POC Glucose 124 H 122 H 120 H Calcium Magnesium Direct Bilirubin AST ALT Alkaline Phosphatase Total Creatine Kinase CK-MB (CK-2) CK-MB (CK-2) Rel Index Troponin T C-Reactive Protein Total Protein Albumin Triglycerides Ur Specific [place] Urine WBC (Auto) Miscellaneous Test 05/06/17 05/06/17 05/06/17 00:16 05:47 11:42 WBC RBC Hgb Hct MCV MCH Plt Count Lymph % (Auto) [place] % (Auto) Eos % (Auto) Baso % (Auto) Lymph # Baso # Seg Neutrophils % Lymphocytes % (Manual) Monocytes % (Manual) Nucleated RBC % Seg Neutrophils # Seg Neutrophils # Man Monocytes # (Manual) PT INR Activated Clotting Time POC ABG pH POC ABG pCO2 POC ABG pO2 Sodium Potassium Chloride Carbon Dioxide BUN Creatinine Glucose POC Glucose 110 H 142 H 120 H Calcium Magnesium Direct Bilirubin AST ALT Alkaline Phosphatase Total Creatine Kinase CK-MB (CK-2) CK-MB (CK-2) Rel Index Troponin T C-Reactive Protein Total Protein Albumin Triglycerides Ur Specific [place] Urine WBC (Auto) Miscellaneous Test 05/06/17 05/07/17 05/07/17 17:46 00:07 05:28 WBC RBC Hgb Hct MCV MCH Plt Count Lymph % (Auto) [place] % (Auto) Eos % (Auto) Baso % (Auto) Lymph # Baso # Seg Neutrophils % Lymphocytes % (Manual) Monocytes % (Manual) Nucleated RBC % Seg Neutrophils # Seg Neutrophils # Man Monocytes # (Manual) PT INR Activated Clotting Time POC ABG pH POC ABG pCO2 POC ABG pO2 Sodium Potassium Chloride Carbon Dioxide BUN Creatinine Glucose POC Glucose 127 H 145 H 124 H Calcium Magnesium Direct Bilirubin AST ALT Alkaline Phosphatase Total Creatine Kinase CK-MB (CK-2) CK-MB (CK-2) Rel Index Troponin T C-Reactive Protein Total Protein Albumin Triglycerides Ur Specific [place] Urine WBC (Auto) Miscellaneous Test 05/07/17 05/07/17 05/08/17 11:17 17:14 00:03 WBC RBC Hgb Hct MCV MCH Plt Count Lymph % (Auto) [place] % (Auto) Eos % (Auto) Baso % (Auto) Lymph # Baso # Seg Neutrophils % Lymphocytes % (Manual) Monocytes % (Manual) Nucleated RBC % Seg Neutrophils # Seg Neutrophils # Man Monocytes # (Manual) PT INR Activated Clotting Time POC ABG pH POC ABG pCO2 POC ABG pO2 Sodium Potassium Chloride Carbon Dioxide BUN Creatinine Glucose POC Glucose 144 H 125 H 122 H Calcium Magnesium Direct Bilirubin AST ALT Alkaline Phosphatase Total Creatine Kinase CK-MB (CK-2) CK-MB (CK-2) Rel Index Troponin T C-Reactive Protein Total Protein Albumin Triglycerides Ur Specific [place] Urine WBC (Auto) Miscellaneous Test 05/08/17 05/08/17 05/08/17 05:43 12:07 18:02 WBC RBC Hgb Hct MCV MCH Plt Count Lymph % (Auto) [place] % (Auto) Eos % (Auto) Baso % (Auto) Lymph # Baso # Seg Neutrophils % Lymphocytes % (Manual) Monocytes % (Manual) Nucleated RBC % Seg Neutrophils # Seg Neutrophils # Man Monocytes # (Manual) PT INR Activated Clotting Time POC ABG pH POC ABG pCO2 POC ABG pO2 Sodium Potassium Chloride Carbon Dioxide BUN Creatinine Glucose POC Glucose 117 H 114 H 129 H Calcium Magnesium Direct Bilirubin AST ALT Alkaline Phosphatase Total Creatine Kinase CK-MB (CK-2) CK-MB (CK-2) Rel Index Troponin T C-Reactive Protein Total Protein Albumin Triglycerides Ur Specific [place] Urine WBC (Auto) Miscellaneous Test 05/08/17 05/09/17 05/09/17 23:53 04:19 05:14 WBC RBC Hgb Hct MCV MCH Plt Count Lymph % (Auto) [place] % (Auto) Eos % (Auto) Baso % (Auto) Lymph # Baso # Seg Neutrophils % Lymphocytes % (Manual) Monocytes % (Manual) Nucleated RBC % Seg Neutrophils # Seg Neutrophils # Man Monocytes # (Manual) PT INR Activated Clotting Time POC ABG pH 7.524 H POC ABG pCO2 34.7 L POC ABG pO2 107 H Sodium Potassium Chloride Carbon Dioxide BUN Creatinine Glucose POC Glucose 125 H 118 H Calcium Magnesium Direct Bilirubin AST ALT Alkaline Phosphatase Total Creatine Kinase CK-MB (CK-2) CK-MB (CK-2) Rel Index Troponin T C-Reactive Protein Total Protein Albumin Triglycerides Ur Specific [place] Urine WBC (Auto) Miscellaneous Test 05/10/17 05/11/17 23:54 05:48 WBC RBC Hgb Hct MCV MCH Plt Count Lymph % (Auto) [place] % (Auto) Eos % (Auto) Baso % (Auto) Lymph # Baso # Seg Neutrophils % Lymphocytes % (Manual) Monocytes % (Manual) Nucleated RBC % Seg Neutrophils # Seg Neutrophils # Man Monocytes # (Manual) PT INR Activated Clotting Time POC ABG pH POC ABG pCO2 POC ABG pO2 Sodium Potassium Chloride Carbon Dioxide BUN Creatinine Glucose POC Glucose 126 H 137 H Calcium Magnesium Direct Bilirubin AST ALT Alkaline Phosphatase Total Creatine Kinase CK-MB (CK-2) CK-MB (CK-2) Rel Index Troponin T C-Reactive Protein Total Protein Albumin Triglycerides Ur Specific [place] Urine WBC (Auto) Miscellaneous Test
--- NOTE | 2017-05-11 13:36 | Progress Note ---
Assessment and Plan Assessment and plan: -- acute hypoxic hypercapnic respiratory failure ; status post trach, vent dependent, on weaning parameters 46-year-old --s/p cardiac arrest /Villareal encephalopathy/vegetative state --Acute anterior STEMI; status post PCI, --MRSA pneumonia/aspiration pneumonia, contact isolation patient received full treatment with Zyvox --Hypertension; BP in the lower range. -- aspiration pneumonia; sepsis; received full course of antibiotics --Cardiogenic shock; off pressors, --s/p trach and PEG, continue PEG feeds --Severe Protein calorie malnutrition: Peg feeds and nutrition suppliments --DVT prophylaxis; Lovenox On the new on the current management --Full CODE STATUS Poor prognosis family aware Possible family meeting this week to discuss up or treatment plan Very difficult to place, secondary to social issues History Interval history: Patient seen and examined medical history reviewed. No new events reported Status post tracheostomy vent dependent Vital signs reviewed Spontaneous opening of eyes, unresponsive Hospitalist Physical - Constitutional Vitals: Temp Pulse Resp BP Pulse Ox 98.7 F 88 17 100/62 99 05/11/17 08:00 05/11/17 10:31 05/11/17 09:30 05/11/17 10:31 05/11/17 08:20 General appearance: Present: no acute distress, other (tracheostomy on vent) - EENT Eyes: Present: PERRL, EOM intact - Neck Neck: Present: supple, normal ROM - Respiratory Respiratory effort: normal (all medications and slightly slight) Respiratory: bilateral: diminished, rhonchi, negative: rales, wheezing - Cardiovascular Rhythm: regular Heart Sounds: Present: S1 & S2 - Extremities Extremities: no ischemia, No edema - Abdominal General gastrointestinal: soft, non-tender, non-distended, normal bowel sounds - Integumentary Integumentary: Present: clear, warm - Psychiatric Psychiatric: other (unresponsive) - Neurologic Neurologic: other (unresponsive) Results - Labs CBC & Chem 7: 05/01/17 05:30 05/01/17 05:30 Labs: Laboratory Last Values WBC 7.8 K/mm3 (4.5-11.0) 05/01/17 05:30 RBC 3.49 M/mm3 (3.65-5.03) L 05/01/17 05:30 Hgb 10.3 gm/dl (11.8-15.2) L 05/01/17 05:30 Hct 31.9 % (35.5-45.6) L 05/01/17 05:30 MCV 92 fl (84-94) 05/01/17 05:30 MCH 30 pg (28-32) 05/01/17 05:30 MCHC 32 % (32-34) 05/01/17 05:30 RDW 15.1 % (13.2-15.2) 05/01/17 05:30 Plt Count 280 K/mm3 (140-440) 05/01/17 05:30 Lymph % (Auto) 17.7 % (13.4-35.0) 05/01/17 05:30 [place] % (Auto) 8.1 % (0.0-7.3) H 05/01/17 05:30 Eos % (Auto) 2.5 % (0.0-4.3) 05/01/17 05:30 Baso % (Auto) 0.4 % (0.0-1.8) 05/01/17 05:30 Lymph # 1.4 K/mm3 (1.2-5.4) 05/01/17 05:30 [place] # 0.6 K/mm3 (0.0-0.8) 05/01/17 05:30 Eos # 0.2 K/mm3 (0.0-0.4) 05/01/17 05:30 Baso # 0.0 K/mm3 (0.0-0.1) 05/01/17 05:30 Add Manual Diff Complete 03/30/17 03:50 Total Counted 100 03/30/17 03:50 Seg Neutrophils % 71.3 % (40.0-70.0) H 05/01/17 05:30 Seg Neuts % (Manual) 65.0 % (40.0-70.0) 03/30/17 03:50 Band Neutrophils % 17.0 % 03/30/17 03:50 Lymphocytes % (Manual) 7.0 % (13.4-35.0) L 03/30/17 03:50 Reactive Lymphs % (Man) 0 % 03/30/17 03:50 Monocytes % (Manual) 7.0 % (0.0-7.3) 03/30/17 03:50 Eosinophils % (Manual) 0 % (0.0-4.3) 03/30/17 03:50 Basophils % (Manual) 0 % (0.0-1.8) 03/30/17 03:50 Metamyelocytes % 4.0 % 03/30/17 03:50 Myelocytes % 0 % 03/30/17 03:50 Promyelocytes % 0 % 03/30/17 03:50 Blast Cells % 0 % 03/30/17 03:50 Nucleated RBC % Not Reportable 03/30/17 03:50 Seg Neutrophils # 5.6 K/mm3 (1.8-7.7) 05/01/17 05:30 Seg Neutrophils # Man 12.7 K/mm3 (1.8-7.7) H 03/30/17 03:50 Band Neutrophils # 3.3 K/mm3 03/30/17 03:50 Lymphocytes # (Manual) 1.4 K/mm3 (1.2-5.4) 03/30/17 03:50 Abs React Lymphs (Man) 0.0 K/mm3 03/30/17 03:50 Monocytes # (Manual) 1.4 K/mm3 (0.0-0.8) H 03/30/17 03:50 Eosinophils # (Manual) 0.0 K/mm3 (0.0-0.4) 03/30/17 03:50 Basophils # (Manual) 0.0 K/mm3 (0.0-0.1) 03/30/17 03:50 Metamyelocytes # 0.8 K/mm3 03/30/17 03:50 Myelocytes # 0.0 K/mm3 03/30/17 03:50 Promyelocytes # 0.0 K/mm3 03/30/17 03:50 Blast Cells # 0.0 K/mm3 03/30/17 03:50 WBC Morphology Not Reportable 03/30/17 03:50 Hypersegmented Neuts Not Reportable 03/30/17 03:50 Hyposegmented Neuts Not Reportable 03/30/17 03:50 Hypogranular Neuts Not Reportable 03/30/17 03:50 Smudge Cells Not Reportable 03/30/17 03:50 Toxic Granulation Not Reportable 03/30/17 03:50 Toxic Vacuolation Not Reportable 03/30/17 03:50 Dohle Bodies Not Reportable 03/30/17 03:50 Pelger-Huet Anomaly Not Reportable 03/30/17 03:50 Sherry Rods Not Reportable 03/30/17 03:50 Platelet Estimate Appears normal 03/30/17 03:50 Clumped Platelets Not Reportable 03/30/17 03:50 Plt Clumps, EDTA Not Reportable 03/30/17 03:50 Large Platelets Not Reportable 03/30/17 03:50 Giant Platelets Not Reportable 03/30/17 03:50 Platelet Satelliting Not Reportable 03/30/17 03:50 Plt Morphology Comment Not Reportable 03/30/17 03:50 RBC Morphology Not Reportable 03/30/17 03:50 Dimorphic RBCs Not Reportable 03/30/17 03:50 Polychromasia Not Reportable 03/30/17 03:50 Hypochromasia Not Reportable 03/30/17 03:50 Poikilocytosis Not Reportable 03/30/17 03:50 Anisocytosis Few 03/30/17 03:50 Microcytosis Not Reportable 03/30/17 03:50 Macrocytosis Not Reportable 03/30/17 03:50 Spherocytes Not Reportable 03/30/17 03:50 Pappenheimer Bodies Not Reportable 03/30/17 03:50 Sickle Cells Not Reportable 03/30/17 03:50 Target Cells Not Reportable 03/30/17 03:50 Tear Drop Cells Not Reportable 03/30/17 03:50 Ovalocytes Not Reportable 03/30/17 03:50 Helmet Cells Not Reportable 03/30/17 03:50 [place] Bodies Not Reportable 03/30/17 03:50 [place] Not Reportable 03/30/17 03:50 [place] Cells Not Reportable 03/30/17 03:50 Bite Cells Not Reportable 03/30/17 03:50 Crenated Cell Not Reportable 03/30/17 03:50 Elliptocytes Not Reportable 03/30/17 03:50 Acanthocytes (Spur) Not Reportable 03/30/17 03:50 Rouleaux Not Reportable 03/30/17 03:50 Hemoglobin C Crystals Not Reportable 03/30/17 03:50 Schistocytes Not Reportable 03/30/17 03:50 Malaria parasites Not Reportable 03/30/17 03:50 Jermaine Bodies Not Reportable 03/30/17 03:50 Hem Pathologist Commnt No 03/30/17 03:50 PT 14.9 Sec. (12.2-14.9) 04/10/17 04:16 INR 1.11 (0.87-1.13) 04/10/17 04:16 APTT 27.8 Sec. (24.2-36.6) 04/10/17 04:16 Activated Clotting Time 92 (74-137) 03/29/17 17:47 POC ABG pH 7.524 (7.35-7.45) H 05/09/17 04:19 POC ABG pCO2 34.7 (35-45) L 05/09/17 04:19 POC ABG pO2 107 (80-105) H 05/09/17 04:19 POC ABG HCO3 28.6 05/09/17 04:19 POC ABG Total CO2 30 05/09/17 04:19 POC ABG O2 Sat 99 05/09/17 04:19 POC ABG Base Excess 6 05/09/17 04:19 FiO2 25 % 05/09/17 04:19 Sodium 136 mmol/L (137-145) L 05/01/17 05:30 Potassium 3.9 mmol/L (3.6-5.0) 05/01/17 05:30 Chloride 97.6 mmol/L (98-107) L 05/01/17 05:30 Carbon Dioxide 25 mmol/L (22-30) 05/01/17 05:30 Anion Gap 17 mmol/L 05/01/17 05:30 BUN 16 mg/dL (9-20) 05/01/17 05:30 Creatinine 0.2 mg/dL (0.8-1.5) L 05/01/17 05:30 Estimated GFR > 60 ml/min 05/01/17 05:30 BUN/Creatinine Ratio 80 % 05/01/17 05:30 Glucose 123 mg/dL (75-100) H 05/01/17 05:30 POC Glucose 137 (70-105) H 05/11/17 05:48 Calcium 8.9 mg/dL (8.4-10.2) 05/01/17 05:30 Phosphorus 3.50 mg/dL (2.5-4.5) 04/13/17 04:45 Magnesium 1.80 mg/dL (1.7-2.3) 05/01/17 05:30 Total Bilirubin 0.60 mg/dL (0.1-1.2) 05/01/17 05:30 Direct Bilirubin < 0.2 mg/dL (0-0.2) 04/27/17 05:40 Indirect Bilirubin 0.3 mg/dL 04/25/17 04:51 AST 71 units/L (5-40) H 05/01/17 05:30 ALT 125 units/L (7-56) H 05/01/17 05:30 Alkaline Phosphatase 158 units/L (35-129) H 05/01/17 05:30 Total Creatine Kinase 1404 units/L (55-170) H 04/12/17 21:36 CK-MB (CK-2) 8.0 ng/mL (0.0-4.0) H 04/12/17 21:36 CK-MB (CK-2) Rel Index 0.5 (0-4) 04/12/17 21:36 Troponin T 0.767 ng/mL (0.00-0.029) H* 04/12/17 21:36 C-Reactive Protein 21.80 mg/dL (0.00-1.30) H 03/30/17 16:04 Total Protein 6.7 g/dL (6.3-8.2) 05/01/17 05:30 Albumin 2.6 g/dL (3.9-5) L 05/01/17 05:30 Albumin/Globulin Ratio 0.6 % 05/01/17 05:30 Triglycerides 151 mg/dL (2-149) H 04/01/17 04:29 Cholesterol 164 mg/dL (50-199) 03/29/17 19:52 LDL Cholesterol Direct 81 mg/dL (50-130) 03/29/17 19:52 HDL Cholesterol 44 mg/dL (40-59) 03/29/17 19:52 Cholesterol/HDL Ratio 3.72 % 03/29/17 19:52 Urine Color [place] (Yellow) 04/21/17 22:00 Urine Turbidity Clear (Clear) 04/21/17 22:00 Urine pH 5.0 (5.0-7.0) 04/21/17 22:00 Ur Specific [place] 1.029 (1.003-1.030) 04/21/17 22:00 Urine Protein 30 mg/dl mg/dL (Negative) 04/21/17 22:00 Urine Glucose (UA) Neg mg/dL (Negative) 04/21/17 22:00 Urine Ketones Neg mg/dL (Negative) 04/21/17 22:00 Urine Blood Mod (Negative) 04/21/17 22:00 Urine Nitrite Neg (Negative) 04/21/17 22:00 Urine Bilirubin Neg (Negative) 04/21/17 22:00 Urine Urobilinogen 4.0 mg/dL (<2.0) 04/21/17 22:00 Ur Leukocyte Esterase Neg (Negative) 04/21/17 22:00 Urine WBC (Auto) 10.0 /HPF (0.0-6.0) H 04/21/17 22:00 Urine RBC (Auto) 44.0 /HPF (0.0-6.0) 04/21/17 22:00 U Epithel Cells (Auto) < 1.0 /HPF (0-13.0) 04/21/17 22:00 Amorphous Crystals 1+ 03/30/17 09:45 Urine Mucus 3+ /HPF 04/21/17 22:00 Urine Opiates Screen Presumptive negative 03/30/17 09:45 Urine Methadone Screen Presumptive negative 03/30/17 09:45 Ur Barbiturates Screen Presumptive negative 03/30/17 09:45 Ur Phencyclidine Scrn Presumptive negative 03/30/17 09:45 Ur Amphetamines Screen Presumptive positive 03/30/17 09:45 U Benzodiazepines Scrn Presumptive positive 03/30/17 09:45 Urine Cocaine Screen Presumptive negative 03/30/17 09:45 U Marijuana (THC) Screen Presumptive negative 03/30/17 09:45 Drugs of Abuse Note Disclamer 03/30/17 09:45 Miscellaneous Test Flexitest 1 H 04/25/17 07:07 Blood Type O POSITIVE 03/29/17 11:35 Antibody Screen Negative 03/29/17 11:35
[2017-05-11] MEDS: TRANSDERM-SCOP TD SCH (15:04)
--- NOTE | 2017-05-12 09:17 | Progress Note ---
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 Family meeting scheduled for 13:00 today. Neurology will be present. Will discuss code status and what family expectations are at this point. Given his lack of clinical/neurological recovery, prognosis appears to be very, very poor. 1. PSV as tolerated with a goal to get to T-piece 2. Once tolerates T-piece for 24 hours, can consider transfer to floor 3. reviewed neurology note and agree with assessment 4. Continue all other cardiac meds 5. Overall prognosis still remains poor given amount of downtime during arrest. 6. Still need to have family meeting with neurology present to explain current findings. Patient should at least be a DNR if family wants to continue aggressive care. Given his current cardiac issues and mental state, coding him would not improve any outcomes. CCT 31 minutes. Subjective Date of service: 05/12/17 Principal diagnosis: coma,ARV,s/p arrest Interval history: No acute events. Mental status unchanged. Family meeting scheduled for 13:00 Objective Vital Signs - 12hr 05/11/17 05/11/17 05/11/17 21:30 22:00 22:30 Temperature Pulse Rate 79 78 84 Pulse Rate [ From Monitor] Respiratory 18 16 21 Rate Blood Pressure 98/59 93/57 93/57 O2 Sat by Pulse 98 97 Oximetry O2 Sat by Pulse Oximetry [ Assessment] 05/11/17 05/11/17 05/11/17 23:00 23:02 23:04 Temperature Pulse Rate 84 84 Pulse Rate [ From Monitor] Respiratory 18 Rate Blood Pressure 99/59 99/59 O2 Sat by Pulse 98 99 Oximetry O2 Sat by Pulse 99 Oximetry [ Assessment] 05/11/17 05/11/17 05/11/17 23:14 23:30 23:49 Temperature Pulse Rate 79 79 84 Pulse Rate [ From Monitor] Respiratory 18 17 Rate Blood Pressure 99/59 94/58 94/58 O2 Sat by Pulse 98 100 Oximetry O2 Sat by Pulse Oximetry [ Assessment] 05/12/17 05/12/17 05/12/17 00:00 00:30 01:00 Temperature 97.9 F Pulse Rate 85 91 H 91 H Pulse Rate [ 90 From Monitor] Respiratory 23 23 18 Rate Blood Pressure 102/61 108/65 104/57 O2 Sat by Pulse 99 95 96 Oximetry O2 Sat by Pulse Oximetry [ Assessment] 05/12/17 05/12/17 05/12/17 01:30 02:00 02:30 Temperature Pulse Rate 90 88 86 Pulse Rate [ From Monitor] Respiratory 18 22 21 Rate Blood Pressure 102/55 98/59 97/54 O2 Sat by Pulse 98 99 97 Oximetry O2 Sat by Pulse Oximetry [ Assessment] 05/12/17 05/12/17 05/12/17 03:00 03:07 03:31 Temperature Pulse Rate 87 86 80 Pulse Rate [ From Monitor] Respiratory 25 H 14 Rate Blood Pressure 101/52 97/54 101/52 O2 Sat by Pulse 96 100 100 Oximetry O2 Sat by Pulse Oximetry [ Assessment] 05/12/17 05/12/17 05/12/17 04:00 04:30 05:00 Temperature 99.1 F Pulse Rate 84 84 85 Pulse Rate [ From Monitor] Respiratory 19 22 17 Rate Blood Pressure 104/69 114/76 98/67 O2 Sat by Pulse 100 Oximetry O2 Sat by Pulse Oximetry [ Assessment] 05/12/17 05/12/17 05/12/17 05:30 06:00 06:30 Temperature Pulse Rate 91 H 88 88 Pulse Rate [ From Monitor] Respiratory 18 22 20 Rate Blood Pressure 93/55 99/65 96/62 O2 Sat by Pulse 100 100 100 Oximetry O2 Sat by Pulse Oximetry [ Assessment] 05/12/17 05/12/17 05/12/17 07:00 07:30 07:38 Temperature 99.3 F Pulse Rate 86 81 Pulse Rate [ From Monitor] Respiratory 19 17 Rate Blood Pressure 99/62 93/58 O2 Sat by Pulse 99 Oximetry O2 Sat by Pulse Oximetry [ Assessment] 05/12/17 05/12/17 05/12/17 08:00 08:30 08:40 Temperature Pulse Rate 83 83 Pulse Rate [ From Monitor] Respiratory 19 19 Rate Blood Pressure 91/57 95/57 O2 Sat by Pulse 96 98 Oximetry O2 Sat by Pulse 100 Oximetry [ Assessment] 05/12/17 08:43 Temperature Pulse Rate 78 Pulse Rate [ From Monitor] Respiratory Rate Blood Pressure 95/54 O2 Sat by Pulse 100 Oximetry O2 Sat by Pulse Oximetry [ Assessment] Constitutional: no acute distress, comatose Eyes: non-icteric ENT: oropharynx moist Neck: supple, no JVD, other (tracheotomy ) Effort: normal Ascultation: Bilateral: clear, diminished breath sounds, other (coarse BS bilaterally) Percussion: Bilateral: not dull Cardiovascular: regular rate and rhythm Gastrointestinal: normoactive bowel sounds, soft, non-tender, non-distended Integumentary: normal Extremities: no cyanosis, no edema, pink and warm Neurologic: unable to assess Psychiatric: other (eyes open spontaneously but does not follow any voice commands, otherwise nonresponsive except for pain) CBC and BMP: 05/01/17 05:30 05/01/17 05:30 ABG, PT/INR, D-dimer: ABG POC ABG pH 7.524 (7.35-7.45) H 05/09/17 04:19 POC ABG pCO2 34.7 (35-45) L 05/09/17 04:19 POC ABG pO2 107 (80-105) H 05/09/17 04:19 POC ABG HCO3 28.6 05/09/17 04:19 POC ABG Total CO2 30 05/09/17 04:19 POC ABG O2 Sat 99 05/09/17 04:19 PT/INR, D-dimer PT 14.9 Sec. (12.2-14.9) 04/10/17 04:16 INR 1.11 (0.87-1.13) 04/10/17 04:16 Abnormal lab findings: Abnormal Labs 03/29/17 03/29/17 03/29/17 11:35 11:35 11:40 WBC RBC Hgb Hct MCV 98 H MCH 33 H Plt Count Lymph % (Auto) [place] % (Auto) Eos % (Auto) Baso % (Auto) Lymph # Baso # Seg Neutrophils % Lymphocytes % (Manual) Monocytes % (Manual) 9.0 H Nucleated RBC % 1.0 H Seg Neutrophils # Seg Neutrophils # Man Monocytes # (Manual) 0.9 H PT 15.8 H INR 1.20 H Activated Clotting Time POC ABG pH POC ABG pCO2 POC ABG pO2 Sodium Potassium 2.7 L* Chloride 95.3 L Carbon Dioxide 17 L BUN Creatinine Glucose 435 H POC Glucose Calcium Magnesium Direct Bilirubin AST ALT Alkaline Phosphatase Total Creatine Kinase CK-MB (CK-2) CK-MB (CK-2) Rel Index Troponin T C-Reactive Protein Total Protein 6.1 L Albumin 3.5 L Triglycerides Ur Specific [place] Urine WBC (Auto) Miscellaneous Test 03/29/17 03/29/17 03/29/17 12:34 13:10 13:25 WBC RBC Hgb Hct MCV MCH Plt Count Lymph % (Auto) [place] % (Auto) Eos % (Auto) Baso % (Auto) Lymph # Baso # Seg Neutrophils % Lymphocytes % (Manual) Monocytes % (Manual) Nucleated RBC % Seg Neutrophils # Seg Neutrophils # Man Monocytes # (Manual) PT INR Activated Clotting Time 142 H 169 H 175 H POC ABG pH POC ABG pCO2 POC ABG pO2 Sodium Potassium Chloride Carbon Dioxide BUN Creatinine Glucose POC Glucose Calcium Magnesium Direct Bilirubin AST ALT Alkaline Phosphatase Total Creatine Kinase CK-MB (CK-2) CK-MB (CK-2) Rel Index Troponin T C-Reactive Protein Total Protein Albumin Triglycerides Ur Specific [place] Urine WBC (Auto) Miscellaneous Test 03/29/17 03/29/17 03/29/17 14:50 15:18 19:52 WBC RBC Hgb Hct MCV MCH Plt Count Lymph % (Auto) [place] % (Auto) Eos % (Auto) Baso % (Auto) Lymph # Baso # Seg Neutrophils % Lymphocytes % (Manual) Monocytes % (Manual) Nucleated RBC % Seg Neutrophils # Seg Neutrophils # Man Monocytes # (Manual) PT INR Activated Clotting Time 175 H POC ABG pH 7.293 L POC ABG pCO2 POC ABG pO2 602 H Sodium Potassium Chloride Carbon Dioxide BUN Creatinine Glucose POC Glucose Calcium Magnesium Direct Bilirubin AST ALT Alkaline Phosphatase Total Creatine Kinase 7263 H CK-MB (CK-2) > 300.0 H CK-MB (CK-2) Rel Index 4.1 H Troponin T 8.080 H* D C-Reactive Protein Total Protein Albumin Triglycerides 195 H Ur Specific [place] Urine WBC (Auto) Miscellaneous Test 03/30/17 03/30/17 03/30/17 03:50 03:50 06:19 WBC 19.5 H RBC Hgb Hct MCV MCH Plt Count Lymph % (Auto) [place] % (Auto) Eos % (Auto) Baso % (Auto) Lymph # Baso # Seg Neutrophils % Lymphocytes % (Manual) 7.0 L Monocytes % (Manual) Nucleated RBC % Seg Neutrophils # Seg Neutrophils # Man 12.7 H Monocytes # (Manual) 1.4 H PT INR Activated Clotting Time POC ABG pH POC ABG pCO2 28.2 L POC ABG pO2 108 H Sodium Potassium Chloride 108.9 H Carbon Dioxide 15 L BUN 25 H Creatinine Glucose 158 H POC Glucose Calcium 8.1 L Magnesium Direct Bilirubin AST ALT Alkaline Phosphatase Total Creatine Kinase 7963 H CK-MB (CK-2) > 300.0 H CK-MB (CK-2) Rel Index Troponin T 6.850 H* C-Reactive Protein Total Protein Albumin Triglycerides Ur Specific [place] Urine WBC (Auto) Miscellaneous Test 03/30/17 03/30/17 03/31/17 09:45 16:04 02:19 WBC RBC Hgb Hct MCV MCH Plt Count Lymph % (Auto) [place] % (Auto) Eos % (Auto) Baso % (Auto) Lymph # Baso # Seg Neutrophils % Lymphocytes % (Manual) Monocytes % (Manual) Nucleated RBC % Seg Neutrophils # Seg Neutrophils # Man Monocytes # (Manual) PT INR Activated Clotting Time POC ABG pH POC ABG pCO2 POC ABG pO2 Sodium Potassium Chloride Carbon Dioxide BUN Creatinine Glucose POC Glucose 137 H Calcium Magnesium Direct Bilirubin AST ALT Alkaline Phosphatase Total Creatine Kinase CK-MB (CK-2) CK-MB (CK-2) Rel Index Troponin T C-Reactive Protein 21.80 H Total Protein Albumin Triglycerides Ur Specific [place] 1.031 H Urine WBC (Auto) Miscellaneous Test 03/31/17 03/31/17 03/31/17 03:57 06:54 09:22 WBC RBC Hgb Hct MCV MCH Plt Count Lymph % (Auto) [place] % (Auto) Eos % (Auto) Baso % (Auto) Lymph # Baso # Seg Neutrophils % Lymphocytes % (Manual) Monocytes % (Manual) Nucleated RBC % Seg Neutrophils # Seg Neutrophils # Man Monocytes # (Manual) PT INR Activated Clotting Time POC ABG pH 7.475 H POC ABG pCO2 25.4 L POC ABG pO2 62 L Sodium Potassium Chloride Carbon Dioxide 19 L BUN 22 H Creatinine 0.6 L Glucose 148 H POC Glucose 143 H Calcium 8.3 L Magnesium Direct Bilirubin AST ALT Alkaline Phosphatase Total Creatine Kinase CK-MB (CK-2) CK-MB (CK-2) Rel Index Troponin T C-Reactive Protein Total Protein Albumin Triglycerides Ur Specific [place] Urine WBC (Auto) Miscellaneous Test 03/31/17 03/31/17 03/31/17 11:40 17:47 23:38 WBC RBC Hgb Hct MCV MCH Plt Count Lymph % (Auto) [place] % (Auto) Eos % (Auto) Baso % (Auto) Lymph # Baso # Seg Neutrophils % Lymphocytes % (Manual) Monocytes % (Manual) Nucleated RBC % Seg Neutrophils # Seg Neutrophils # Man Monocytes # (Manual) PT INR Activated Clotting Time POC ABG pH POC ABG pCO2 POC ABG pO2 Sodium Potassium Chloride Carbon Dioxide BUN Creatinine Glucose POC Glucose 127 H 137 H 148 H Calcium Magnesium Direct Bilirubin AST ALT Alkaline Phosphatase Total Creatine Kinase CK-MB (CK-2) CK-MB (CK-2) Rel Index Troponin T C-Reactive Protein Total Protein Albumin Triglycerides Ur Specific [place] Urine WBC (Auto) Miscellaneous Test 04/01/17 04/01/17 04/01/17 04:29 05:01 11:54 WBC RBC Hgb Hct MCV MCH Plt Count Lymph % (Auto) [place] % (Auto) Eos % (Auto) Baso % (Auto) Lymph # Baso # Seg Neutrophils % Lymphocytes % (Manual) Monocytes % (Manual) Nucleated RBC % Seg Neutrophils # Seg Neutrophils # Man Monocytes # (Manual) PT INR Activated Clotting Time POC ABG pH 7.513 H POC ABG pCO2 22.1 L POC ABG pO2 64 L Sodium Potassium Chloride Carbon Dioxide BUN Creatinine Glucose POC Glucose 121 H Calcium Magnesium Direct Bilirubin AST ALT Alkaline Phosphatase Total Creatine Kinase CK-MB (CK-2) CK-MB (CK-2) Rel Index Troponin T C-Reactive Protein Total Protein Albumin Triglycerides 151 H Ur Specific [place] Urine WBC (Auto) Miscellaneous Test 04/01/17 04/02/17 04/02/17 18:17 00:11 04:52 WBC RBC Hgb Hct MCV MCH Plt Count Lymph % (Auto) [place] % (Auto) Eos % (Auto) Baso % (Auto) Lymph # Baso # Seg Neutrophils % Lymphocytes % (Manual) Monocytes % (Manual) Nucleated RBC % Seg Neutrophils # Seg Neutrophils # Man Monocytes # (Manual) PT INR Activated Clotting Time POC ABG pH 7.524 H POC ABG pCO2 25.5 L POC ABG pO2 66 L Sodium Potassium Chloride Carbon Dioxide BUN Creatinine Glucose POC Glucose 117 H 122 H Calcium Magnesium Direct Bilirubin AST ALT Alkaline Phosphatase Total Creatine Kinase CK-MB (CK-2) CK-MB (CK-2) Rel Index Troponin T C-Reactive Protein Total Protein Albumin Triglycerides Ur Specific [place] Urine WBC (Auto) Miscellaneous Test 01/10/1104/02/17 04/02/17 05:18 10:41 12:19 WBC RBC Hgb Hct MCV MCH Plt Count Lymph % (Auto) [place] % (Auto) Eos % (Auto) Baso % (Auto) Lymph # Baso # Seg Neutrophils % Lymphocytes % (Manual) Monocytes % (Manual) Nucleated RBC % Seg Neutrophils # Seg Neutrophils # Man Monocytes # (Manual) PT INR Activated Clotting Time POC ABG pH 7.534 H POC ABG pCO2 27.4 L POC ABG pO2 Sodium Potassium Chloride Carbon Dioxide BUN Creatinine Glucose POC Glucose 132 H 129 H Calcium Magnesium Direct Bilirubin AST ALT Alkaline Phosphatase Total Creatine Kinase CK-MB (CK-2) CK-MB (CK-2) Rel Index Troponin T C-Reactive Protein Total Protein Albumin Triglycerides Ur Specific [place] Urine WBC (Auto) Miscellaneous Test 04/02/17 04/03/17 04/03/17 18:05 00:08 05:09 WBC RBC Hgb Hct MCV MCH Plt Count Lymph % (Auto) [place] % (Auto) Eos % (Auto) Baso % (Auto) Lymph # Baso # Seg Neutrophils % Lymphocytes % (Manual) Monocytes % (Manual) Nucleated RBC % Seg Neutrophils # Seg Neutrophils # Man Monocytes # (Manual) PT INR Activated Clotting Time POC ABG pH 7.455 H POC ABG pCO2 33.2 L POC ABG pO2 120 H Sodium Potassium Chloride Carbon Dioxide BUN Creatinine Glucose POC Glucose 136 H 128 H Calcium Magnesium Direct Bilirubin AST ALT Alkaline Phosphatase Total Creatine Kinase CK-MB (CK-2) CK-MB (CK-2) Rel Index Troponin T C-Reactive Protein Total Protein Albumin Triglycerides Ur Specific [place] Urine WBC (Auto) Miscellaneous Test 04/03/17 04/03/17 04/03/17 06:32 11:54 12:16 WBC 11.9 H RBC Hgb Hct MCV MCH Plt Count 125 L Lymph % (Auto) 4.8 L [place] % (Auto) Eos % (Auto) Baso % (Auto) Lymph # 0.6 L Baso # Seg Neutrophils % 86.7 H Lymphocytes % (Manual) Monocytes % (Manual) Nucleated RBC % Seg Neutrophils # 10.3 H Seg Neutrophils # Man Monocytes # (Manual) PT INR Activated Clotting Time POC ABG pH POC ABG pCO2 POC ABG pO2 Sodium Potassium Chloride Carbon Dioxide BUN Creatinine Glucose POC Glucose 138 H 143 H Calcium Magnesium Direct Bilirubin AST ALT Alkaline Phosphatase Total Creatine Kinase CK-MB (CK-2) CK-MB (CK-2) Rel Index Troponin T C-Reactive Protein Total Protein Albumin Triglycerides Ur Specific [place] Urine WBC (Auto) Miscellaneous Test 04/03/17 04/03/17 04/04/17 17:33 23:59 04:34 WBC RBC Hgb Hct MCV MCH Plt Count Lymph % (Auto) [place] % (Auto) Eos % (Auto) Baso % (Auto) Lymph # Baso # Seg Neutrophils % Lymphocytes % (Manual) Monocytes % (Manual) Nucleated RBC % Seg Neutrophils # Seg Neutrophils # Man Monocytes # (Manual) PT INR Activated Clotting Time POC ABG pH 7.457 H POC ABG pCO2 29.8 L POC ABG pO2 76 L Sodium Potassium Chloride Carbon Dioxide BUN Creatinine Glucose POC Glucose 130 H 155 H Calcium Magnesium Direct Bilirubin AST ALT Alkaline Phosphatase Total Creatine Kinase CK-MB (CK-2) CK-MB (CK-2) Rel Index Troponin T C-Reactive Protein Total Protein Albumin Triglycerides Ur Specific [place] Urine WBC (Auto) Miscellaneous Test 04/04/17 04/04/17 04/04/17 05:27 12:22 18:18 WBC RBC Hgb Hct MCV MCH Plt Count Lymph % (Auto) [place] % (Auto) Eos % (Auto) Baso % (Auto) Lymph # Baso # Seg Neutrophils % Lymphocytes % (Manual) Monocytes % (Manual) Nucleated RBC % Seg Neutrophils # Seg Neutrophils # Man Monocytes # (Manual) PT INR Activated Clotting Time POC ABG pH POC ABG pCO2 POC ABG pO2 Sodium Potassium Chloride Carbon Dioxide BUN Creatinine Glucose POC Glucose 164 H 146 H 130 H Calcium Magnesium Direct Bilirubin AST ALT Alkaline Phosphatase Total Creatine Kinase CK-MB (CK-2) CK-MB (CK-2) Rel Index Troponin T C-Reactive Protein Total Protein Albumin Triglycerides Ur Specific [place] Urine WBC (Auto) Miscellaneous Test 04/05/17 04/05/17 04/05/17 04:43 05:28 11:36 WBC RBC Hgb Hct MCV MCH Plt Count Lymph % (Auto) [place] % (Auto) Eos % (Auto) Baso % (Auto) Lymph # Baso # Seg Neutrophils % Lymphocytes % (Manual) Monocytes % (Manual) Nucleated RBC % Seg Neutrophils # Seg Neutrophils # Man Monocytes # (Manual) PT INR Activated Clotting Time POC ABG pH 7.479 H POC ABG pCO2 33.5 L POC ABG pO2 76 L Sodium Potassium Chloride Carbon Dioxide BUN Creatinine Glucose POC Glucose 145 H 136 H Calcium Magnesium Direct Bilirubin AST ALT Alkaline Phosphatase Total Creatine Kinase CK-MB (CK-2) CK-MB (CK-2) Rel Index Troponin T C-Reactive Protein Total Protein Albumin Triglycerides Ur Specific [place] Urine WBC (Auto) Miscellaneous Test 04/05/17 04/06/17 04/06/17 17:58 00:16 05:26 WBC RBC Hgb Hct MCV MCH Plt Count Lymph % (Auto) [place] % (Auto) Eos % (Auto) Baso % (Auto) Lymph # Baso # Seg Neutrophils % Lymphocytes % (Manual) Monocytes % (Manual) Nucleated RBC % Seg Neutrophils # Seg Neutrophils # Man Monocytes # (Manual) PT INR Activated Clotting Time POC ABG pH POC ABG pCO2 POC ABG pO2 Sodium Potassium Chloride Carbon Dioxide BUN Creatinine Glucose POC Glucose 130 H 159 H 146 H Calcium Magnesium Direct Bilirubin AST ALT Alkaline Phosphatase Total Creatine Kinase CK-MB (CK-2) CK-MB (CK-2) Rel Index Troponin T C-Reactive Protein Total Protein Albumin Triglycerides Ur Specific [place] Urine WBC (Auto) Miscellaneous Test 04/06/17 04/06/17 04/07/17 13:11 16:54 11:45 WBC RBC Hgb Hct MCV MCH Plt Count Lymph % (Auto) [place] % (Auto) Eos % (Auto) Baso % (Auto) Lymph # Baso # Seg Neutrophils % Lymphocytes % (Manual) Monocytes % (Manual) Nucleated RBC % Seg Neutrophils # Seg Neutrophils # Man Monocytes # (Manual) PT INR Activated Clotting Time POC ABG pH 7.517 H POC ABG pCO2 32.1 L POC ABG pO2 Sodium Potassium Chloride Carbon Dioxide BUN Creatinine Glucose POC Glucose 132 H 123 H Calcium Magnesium Direct Bilirubin AST ALT Alkaline Phosphatase Total Creatine Kinase CK-MB (CK-2) CK-MB (CK-2) Rel Index Troponin T C-Reactive Protein Total Protein Albumin Triglycerides Ur Specific [place] Urine WBC (Auto) Miscellaneous Test 04/07/17 04/07/17 04/07/17 12:51 17:40 23:55 WBC RBC Hgb Hct MCV MCH Plt Count Lymph % (Auto) [place] % (Auto) Eos % (Auto) Baso % (Auto) Lymph # Baso # Seg Neutrophils % Lymphocytes % (Manual) Monocytes % (Manual) Nucleated RBC % Seg Neutrophils # Seg Neutrophils # Man Monocytes # (Manual) PT INR Activated Clotting Time POC ABG pH POC ABG pCO2 POC ABG pO2 Sodium Potassium Chloride Carbon Dioxide BUN Creatinine Glucose POC Glucose 138 H 154 H 143 H Calcium Magnesium Direct Bilirubin AST ALT Alkaline Phosphatase Total Creatine Kinase CK-MB (CK-2) CK-MB (CK-2) Rel Index Troponin T C-Reactive Protein Total Protein Albumin Triglycerides Ur Specific [place] Urine WBC (Auto) Miscellaneous Test 04/08/17 04/08/17 04/08/17 05:27 11:14 17:44 WBC RBC Hgb Hct MCV MCH Plt Count Lymph % (Auto) [place] % (Auto) Eos % (Auto) Baso % (Auto) Lymph # Baso # Seg Neutrophils % Lymphocytes % (Manual) Monocytes % (Manual) Nucleated RBC % Seg Neutrophils # Seg Neutrophils # Man Monocytes # (Manual) PT INR Activated Clotting Time POC ABG pH POC ABG pCO2 POC ABG pO2 Sodium Potassium Chloride Carbon Dioxide BUN Creatinine Glucose POC Glucose 142 H 153 H 129 H Calcium Magnesium Direct Bilirubin AST ALT Alkaline Phosphatase Total Creatine Kinase CK-MB (CK-2) CK-MB (CK-2) Rel Index Troponin T C-Reactive Protein Total Protein Albumin Triglycerides Ur Specific [place] Urine WBC (Auto) Miscellaneous Test 04/09/17 04/09/17 04/09/17 08:20 11:21 17:37 WBC RBC Hgb Hct MCV MCH Plt Count Lymph % (Auto) [place] % (Auto) Eos % (Auto) Baso % (Auto) Lymph # Baso # Seg Neutrophils % Lymphocytes % (Manual) Monocytes % (Manual) Nucleated RBC % Seg Neutrophils # Seg Neutrophils # Man Monocytes # (Manual) PT INR Activated Clotting Time POC ABG pH POC ABG pCO2 POC ABG pO2 Sodium 147 H Potassium Chloride 108.8 H Carbon Dioxide BUN 39 H Creatinine 0.5 L Glucose 138 H POC Glucose 152 H 109 H Calcium Magnesium Direct Bilirubin AST ALT Alkaline Phosphatase Total Creatine Kinase CK-MB (CK-2) CK-MB (CK-2) Rel Index Troponin T C-Reactive Protein Total Protein Albumin Triglycerides Ur Specific [place] Urine WBC (Auto) Miscellaneous Test 04/10/17 04/10/17 04/10/17 00:13 04:16 04:16 WBC RBC Hgb 11.5 L Hct MCV 96 H MCH Plt Count 103 L Lymph % (Auto) 11.1 L [place] % (Auto) Eos % (Auto) Baso % (Auto) Lymph # Baso # Seg Neutrophils % 81.5 H Lymphocytes % (Manual) Monocytes % (Manual) Nucleated RBC % Seg Neutrophils # 8.8 H Seg Neutrophils # Man Monocytes # (Manual) PT INR Activated Clotting Time POC ABG pH POC ABG pCO2 POC ABG pO2 Sodium 148 H Potassium Chloride 109.0 H Carbon Dioxide BUN 36 H Creatinine 0.5 L Glucose 131 H POC Glucose 127 H Calcium 8.1 L Magnesium 2.40 H Direct Bilirubin AST 206 H ALT 228 H Alkaline Phosphatase 178 H Total Creatine Kinase CK-MB (CK-2) CK-MB (CK-2) Rel Index Troponin T C-Reactive Protein Total Protein Albumin 2.8 L Triglycerides Ur Specific [place] Urine WBC (Auto) Miscellaneous Test 04/10/17 04/10/17 04/10/17 06:01 11:57 18:27 WBC RBC Hgb Hct MCV MCH Plt Count Lymph % (Auto) [place] % (Auto) Eos % (Auto) Baso % (Auto) Lymph # Baso # Seg Neutrophils % Lymphocytes % (Manual) Monocytes % (Manual) Nucleated RBC % Seg Neutrophils # Seg Neutrophils # Man Monocytes # (Manual) PT INR Activated Clotting Time POC ABG pH POC ABG pCO2 POC ABG pO2 Sodium Potassium Chloride Carbon Dioxide BUN Creatinine Glucose POC Glucose 108 H 154 H 130 H Calcium Magnesium Direct Bilirubin AST ALT Alkaline Phosphatase Total Creatine Kinase CK-MB (CK-2) CK-MB (CK-2) Rel Index Troponin T C-Reactive Protein Total Protein Albumin Triglycerides Ur Specific [place] Urine WBC (Auto) Miscellaneous Test 04/11/17 04/11/17 04/12/17 12:25 17:10 00:22 WBC RBC Hgb Hct MCV MCH Plt Count Lymph % (Auto) [place] % (Auto) Eos % (Auto) Baso % (Auto) Lymph # Baso # Seg Neutrophils % Lymphocytes % (Manual) Monocytes % (Manual) Nucleated RBC % Seg Neutrophils # Seg Neutrophils # Man Monocytes # (Manual) PT INR Activated Clotting Time POC ABG pH POC ABG pCO2 POC ABG pO2 Sodium Potassium Chloride Carbon Dioxide BUN Creatinine Glucose POC Glucose 107 H 129 H 128 H Calcium Magnesium Direct Bilirubin AST ALT Alkaline Phosphatase Total Creatine Kinase CK-MB (CK-2) CK-MB (CK-2) Rel Index Troponin T C-Reactive Protein Total Protein Albumin Triglycerides Ur Specific [place] Urine WBC (Auto) Miscellaneous Test 04/12/17 04/12/17 04/12/17 05:00 11:57 17:47 WBC RBC Hgb Hct MCV MCH Plt Count Lymph % (Auto) [place] % (Auto) Eos % (Auto) Baso % (Auto) Lymph # Baso # Seg Neutrophils % Lymphocytes % (Manual) Monocytes % (Manual) Nucleated RBC % Seg Neutrophils # Seg Neutrophils # Man Monocytes # (Manual) PT INR Activated Clotting Time POC ABG pH POC ABG pCO2 POC ABG pO2 Sodium Potassium Chloride Carbon Dioxide BUN Creatinine Glucose POC Glucose 140 H 142 H Calcium Magnesium Direct Bilirubin AST 158 H ALT 184 H Alkaline Phosphatase 170 H Total Creatine Kinase CK-MB (CK-2) CK-MB (CK-2) Rel Index Troponin T C-Reactive Protein Total Protein Albumin 2.8 L Triglycerides Ur Specific [place] Urine WBC (Auto) Miscellaneous Test 04/12/17 04/12/17 04/13/17 21:36 21:36 01:37 WBC RBC Hgb Hct MCV MCH Plt Count Lymph % (Auto) [place] % (Auto) Eos % (Auto) Baso % (Auto) Lymph # Baso # Seg Neutrophils % Lymphocytes % (Manual) Monocytes % (Manual) Nucleated RBC % Seg Neutrophils # Seg Neutrophils # Man Monocytes # (Manual) PT INR Activated Clotting Time POC ABG pH POC ABG pCO2 POC ABG pO2 Sodium Potassium Chloride Carbon Dioxide BUN Creatinine Glucose POC Glucose 126 H Calcium Magnesium Direct Bilirubin AST ALT Alkaline Phosphatase Total Creatine Kinase 1404 H CK-MB (CK-2) 8.0 H CK-MB (CK-2) Rel Index Troponin T 0.767 H* C-Reactive Protein Total Protein Albumin Triglycerides Ur Specific [place] Urine WBC (Auto) Miscellaneous Test 04/13/17 04/13/17 04/13/17 04:45 04:52 12:17 WBC RBC Hgb Hct MCV MCH Plt Count Lymph % (Auto) [place] % (Auto) Eos % (Auto) Baso % (Auto) Lymph # Baso # Seg Neutrophils % Lymphocytes % (Manual) Monocytes % (Manual) Nucleated RBC % Seg Neutrophils # Seg Neutrophils # Man Monocytes # (Manual) PT INR Activated Clotting Time POC ABG pH POC ABG pCO2 POC ABG pO2 Sodium 148 H Potassium Chloride 112.8 H Carbon Dioxide BUN 33 H Creatinine 0.4 L Glucose 121 H POC Glucose 126 H 149 H Calcium Magnesium Direct Bilirubin AST 160 H ALT 189 H Alkaline Phosphatase 166 H Total Creatine Kinase CK-MB (CK-2) CK-MB (CK-2) Rel Index Troponin T C-Reactive Protein Total Protein Albumin 2.6 L Triglycerides Ur Specific [place] Urine WBC (Auto) Miscellaneous Test 04/13/17 04/14/17 04/14/17 17:45 00:20 00:45 WBC RBC Hgb Hct MCV MCH Plt Count Lymph % (Auto) [place] % (Auto) Eos % (Auto) Baso % (Auto) Lymph # Baso # Seg Neutrophils % Lymphocytes % (Manual) Monocytes % (Manual) Nucleated RBC % Seg Neutrophils # Seg Neutrophils # Man Monocytes # (Manual) PT INR Activated Clotting Time POC ABG pH POC ABG pCO2 POC ABG pO2 Sodium Potassium Chloride Carbon Dioxide BUN Creatinine Glucose POC Glucose 130 H 144 H 144 H Calcium Magnesium Direct Bilirubin AST ALT Alkaline Phosphatase Total Creatine Kinase CK-MB (CK-2) CK-MB (CK-2) Rel Index Troponin T C-Reactive Protein Total Protein Albumin Triglycerides Ur Specific [place] Urine WBC (Auto) Miscellaneous Test 04/14/17 04/14/17 04/14/17 05:40 11:06 11:31 WBC RBC Hgb Hct MCV MCH Plt Count Lymph % (Auto) [place] % (Auto) Eos % (Auto) Baso % (Auto) Lymph # Baso # Seg Neutrophils % Lymphocytes % (Manual) Monocytes % (Manual) Nucleated RBC % Seg Neutrophils # Seg Neutrophils # Man Monocytes # (Manual) PT INR Activated Clotting Time POC ABG pH POC ABG pCO2 POC ABG pO2 Sodium Potassium Chloride Carbon Dioxide BUN Creatinine Glucose POC Glucose 139 H 123 H Calcium Magnesium Direct Bilirubin AST ALT Alkaline Phosphatase Total Creatine Kinase CK-MB (CK-2) CK-MB (CK-2) Rel Index Troponin T C-Reactive Protein Total Protein Albumin Triglycerides Ur Specific [place] 1.033 H Urine WBC (Auto) > 182.0 H Miscellaneous Test 04/14/17 04/14/17 04/15/17 18:00 23:52 05:15 WBC 12.5 H RBC 3.38 L Hgb 10.6 L Hct 32.7 L MCV 97 H MCH Plt Count 107 L Lymph % (Auto) 8.7 L [place] % (Auto) Eos % (Auto) Baso % (Auto) Lymph # 1.1 L Baso # Seg Neutrophils % 86.1 H Lymphocytes % (Manual) Monocytes % (Manual) Nucleated RBC % Seg Neutrophils # 10.7 H Seg Neutrophils # Man Monocytes # (Manual) PT INR Activated Clotting Time POC ABG pH POC ABG pCO2 POC ABG pO2 Sodium Potassium Chloride Carbon Dioxide BUN Creatinine Glucose POC Glucose 133 H 133 H Calcium Magnesium Direct Bilirubin AST ALT Alkaline Phosphatase Total Creatine Kinase CK-MB (CK-2) CK-MB (CK-2) Rel Index Troponin T C-Reactive Protein Total Protein Albumin Triglycerides Ur Specific [place] Urine WBC (Auto) Miscellaneous Test 04/15/17 04/15/17 04/15/17 05:15 05:25 11:50 WBC RBC Hgb Hct MCV MCH Plt Count Lymph % (Auto) [place] % (Auto) Eos % (Auto) Baso % (Auto) Lymph # Baso # Seg Neutrophils % Lymphocytes % (Manual) Monocytes % (Manual) Nucleated RBC % Seg Neutrophils # Seg Neutrophils # Man Monocytes # (Manual) PT INR Activated Clotting Time POC ABG pH POC ABG pCO2 POC ABG pO2 Sodium 149 H Potassium 3.5 L Chloride 114.1 H Carbon Dioxide 21 L BUN 29 H Creatinine 0.4 L Glucose 128 H POC Glucose 133 H 107 H Calcium 8.3 L Magnesium Direct Bilirubin 0.4 H AST 149 H ALT 182 H Alkaline Phosphatase 143 H Total Creatine Kinase CK-MB (CK-2) CK-MB (CK-2) Rel Index Troponin T C-Reactive Protein Total Protein Albumin 2.5 L Triglycerides Ur Specific [place] Urine WBC (Auto) Miscellaneous Test 04/15/17 04/16/17 04/16/17 16:55 00:02 03:17 WBC RBC 3.39 L Hgb 10.5 L Hct 32.4 L MCV 96 H MCH Plt Count 106 L Lymph % (Auto) 6.7 L [place] % (Auto) Eos % (Auto) Baso % (Auto) Lymph # 0.6 L Baso # Seg Neutrophils % 86.8 H Lymphocytes % (Manual) Monocytes % (Manual) Nucleated RBC % Seg Neutrophils # 8.2 H Seg Neutrophils # Man Monocytes # (Manual) PT INR Activated Clotting Time POC ABG pH POC ABG pCO2 POC ABG pO2 Sodium Potassium Chloride Carbon Dioxide BUN Creatinine Glucose POC Glucose 146 H 148 H Calcium Magnesium Direct Bilirubin AST ALT Alkaline Phosphatase Total Creatine Kinase CK-MB (CK-2) CK-MB (CK-2) Rel Index Troponin T C-Reactive Protein Total Protein Albumin Triglycerides Ur Specific [place] Urine WBC (Auto) Miscellaneous Test 04/16/17 04/16/17 04/16/17 03:17 05:19 11:13 WBC RBC Hgb Hct MCV MCH Plt Count Lymph % (Auto) [place] % (Auto) Eos % (Auto) Baso % (Auto) Lymph # Baso # Seg Neutrophils % Lymphocytes % (Manual) Monocytes % (Manual) Nucleated RBC % Seg Neutrophils # Seg Neutrophils # Man Monocytes # (Manual) PT INR Activated Clotting Time POC ABG pH POC ABG pCO2 POC ABG pO2 Sodium 149 H Potassium Chloride 111.1 H Carbon Dioxide 20 L BUN 27 H Creatinine 0.3 L Glucose 156 H POC Glucose 171 H 169 H Calcium 8.3 L Magnesium Direct Bilirubin AST ALT Alkaline Phosphatase Total Creatine Kinase CK-MB (CK-2) CK-MB (CK-2) Rel Index Troponin T C-Reactive Protein Total Protein Albumin Triglycerides Ur Specific [place] Urine WBC (Auto) Miscellaneous Test 04/16/17 04/17/17 04/17/17 17:03 00:00 05:09 WBC RBC Hgb Hct MCV MCH Plt Count Lymph % (Auto) [place] % (Auto) Eos % (Auto) Baso % (Auto) Lymph # Baso # Seg Neutrophils % Lymphocytes % (Manual) Monocytes % (Manual) Nucleated RBC % Seg Neutrophils # Seg Neutrophils # Man Monocytes # (Manual) PT INR Activated Clotting Time POC ABG pH POC ABG pCO2 POC ABG pO2 Sodium Potassium Chloride Carbon Dioxide BUN Creatinine Glucose POC Glucose 151 H 165 H 145 H Calcium Magnesium Direct Bilirubin AST ALT Alkaline Phosphatase Total Creatine Kinase CK-MB (CK-2) CK-MB (CK-2) Rel Index Troponin T C-Reactive Protein Total Protein Albumin Triglycerides Ur Specific [place] Urine WBC (Auto) Miscellaneous Test 04/17/17 04/17/17 04/18/17 11:38 17:47 00:01 WBC RBC Hgb Hct MCV MCH Plt Count Lymph % (Auto) [place] % (Auto) Eos % (Auto) Baso % (Auto) Lymph # Baso # Seg Neutrophils % Lymphocytes % (Manual) Monocytes % (Manual) Nucleated RBC % Seg Neutrophils # Seg Neutrophils # Man Monocytes # (Manual) PT INR Activated Clotting Time POC ABG pH POC ABG pCO2 POC ABG pO2 Sodium Potassium Chloride Carbon Dioxide BUN Creatinine Glucose POC Glucose 170 H 161 H 131 H Calcium Magnesium Direct Bilirubin AST ALT Alkaline Phosphatase Total Creatine Kinase CK-MB (CK-2) CK-MB (CK-2) Rel Index Troponin T C-Reactive Protein Total Protein Albumin Triglycerides Ur Specific [place] Urine WBC (Auto) Miscellaneous Test 04/18/17 04/18/17 04/18/17 03:55 03:55 05:30 WBC RBC 3.05 L Hgb 9.8 L Hct 29.0 L MCV 95 H MCH Plt Count 113 L Lymph % (Auto) [place] % (Auto) Eos % (Auto) 5.3 H Baso % (Auto) Lymph # Baso # Seg Neutrophils % 71.5 H Lymphocytes % (Manual) Monocytes % (Manual) Nucleated RBC % Seg Neutrophils # Seg Neutrophils # Man Monocytes # (Manual) PT INR Activated Clotting Time POC ABG pH 7.460 H POC ABG pCO2 30.8 L POC ABG pO2 129 H Sodium Potassium Chloride Carbon Dioxide 21 L BUN 25 H Creatinine 0.4 L Glucose 123 H POC Glucose Calcium 8.3 L Magnesium Direct Bilirubin AST ALT Alkaline Phosphatase Total Creatine Kinase CK-MB (CK-2) CK-MB (CK-2) Rel Index Troponin T C-Reactive Protein Total Protein Albumin Triglycerides Ur Specific [place] Urine WBC (Auto) Miscellaneous Test 04/18/17 04/18/17 04/19/17 17:10 23:40 04:36 WBC RBC 3.21 L Hgb 10.2 L Hct 30.4 L MCV 95 H MCH Plt Count 131 L Lymph % (Auto) 12.1 L [place] % (Auto) Eos % (Auto) 4.7 H Baso % (Auto) 2.4 H Lymph # 0.9 L Baso # 0.2 H Seg Neutrophils % 75.0 H Lymphocytes % (Manual) Monocytes % (Manual) Nucleated RBC % Seg Neutrophils # Seg Neutrophils # Man Monocytes # (Manual) PT INR Activated Clotting Time POC ABG pH POC ABG pCO2 POC ABG pO2 Sodium Potassium Chloride Carbon Dioxide BUN Creatinine Glucose POC Glucose 135 H 157 H Calcium Magnesium Direct Bilirubin AST ALT Alkaline Phosphatase Total Creatine Kinase CK-MB (CK-2) CK-MB (CK-2) Rel Index Troponin T C-Reactive Protein Total Protein Albumin Triglycerides Ur Specific [place] Urine WBC (Auto) Miscellaneous Test 04/19/17 04/19/17 04/19/17 04:36 05:12 06:50 WBC RBC Hgb Hct MCV MCH Plt Count Lymph % (Auto) [place] % (Auto) Eos % (Auto) Baso % (Auto) Lymph # Baso # Seg Neutrophils % Lymphocytes % (Manual) Monocytes % (Manual) Nucleated RBC % Seg Neutrophils # Seg Neutrophils # Man Monocytes # (Manual) PT INR Activated Clotting Time POC ABG pH 7.516 H POC ABG pCO2 28.0 L POC ABG pO2 Sodium Potassium Chloride Carbon Dioxide 21 L BUN 23 H Creatinine 0.2 L Glucose 137 H POC Glucose 131 H Calcium 7.9 L Magnesium Direct Bilirubin AST ALT Alkaline Phosphatase Total Creatine Kinase CK-MB (CK-2) CK-MB (CK-2) Rel Index Troponin T C-Reactive Protein Total Protein Albumin Triglycerides Ur Specific [place] Urine WBC (Auto) Miscellaneous Test 04/19/17 04/19/17 04/20/17 12:36 17:42 00:12 WBC RBC Hgb Hct MCV MCH Plt Count Lymph % (Auto) [place] % (Auto) Eos % (Auto) Baso % (Auto) Lymph # Baso # Seg Neutrophils % Lymphocytes % (Manual) Monocytes % (Manual) Nucleated RBC % Seg Neutrophils # Seg Neutrophils # Man Monocytes # (Manual) PT INR Activated Clotting Time POC ABG pH POC ABG pCO2 POC ABG pO2 Sodium Potassium Chloride Carbon Dioxide BUN Creatinine Glucose POC Glucose 128 H 140 H 132 H Calcium Magnesium Direct Bilirubin AST ALT Alkaline Phosphatase Total Creatine Kinase CK-MB (CK-2) CK-MB (CK-2) Rel Index Troponin T C-Reactive Protein Total Protein Albumin Triglycerides Ur Specific [place] Urine WBC (Auto) Miscellaneous Test 04/20/17 04/20/17 04/20/17 03:35 03:35 05:10 WBC RBC 3.34 L Hgb 10.4 L Hct 31.6 L MCV 95 H MCH Plt Count Lymph % (Auto) 12.9 L [place] % (Auto) Eos % (Auto) Baso % (Auto) Lymph # Baso # Seg Neutrophils % 77.3 H Lymphocytes % (Manual) Monocytes % (Manual) Nucleated RBC % Seg Neutrophils # Seg Neutrophils # Man Monocytes # (Manual) PT INR Activated Clotting Time POC ABG pH POC ABG pCO2 POC ABG pO2 Sodium Potassium Chloride Carbon Dioxide BUN Creatinine 0.3 L Glucose 155 H POC Glucose 135 H Calcium 7.8 L Magnesium Direct Bilirubin AST ALT Alkaline Phosphatase Total Creatine Kinase CK-MB (CK-2) CK-MB (CK-2) Rel Index Troponin T C-Reactive Protein Total Protein Albumin Triglycerides Ur Specific [place] Urine WBC (Auto) Miscellaneous Test 04/20/17 04/20/17 04/21/17 12:49 18:21 00:05 WBC RBC Hgb Hct MCV MCH Plt Count Lymph % (Auto) [place] % (Auto) Eos % (Auto) Baso % (Auto) Lymph # Baso # Seg Neutrophils % Lymphocytes % (Manual) Monocytes % (Manual) Nucleated RBC % Seg Neutrophils # Seg Neutrophils # Man Monocytes # (Manual) PT INR Activated Clotting Time POC ABG pH POC ABG pCO2 POC ABG pO2 Sodium Potassium Chloride Carbon Dioxide BUN Creatinine Glucose POC Glucose 155 H 165 H 141 H Calcium Magnesium Direct Bilirubin AST ALT Alkaline Phosphatase Total Creatine Kinase CK-MB (CK-2) CK-MB (CK-2) Rel Index Troponin T C-Reactive Protein Total Protein Albumin Triglycerides Ur Specific [place] Urine WBC (Auto) Miscellaneous Test 04/21/17 04/21/17 04/21/17 06:00 12:11 17:04 WBC RBC Hgb Hct MCV MCH Plt Count Lymph % (Auto) [place] % (Auto) Eos % (Auto) Baso % (Auto) Lymph # Baso # Seg Neutrophils % Lymphocytes % (Manual) Monocytes % (Manual) Nucleated RBC % Seg Neutrophils # Seg Neutrophils # Man Monocytes # (Manual) PT INR Activated Clotting Time POC ABG pH POC ABG pCO2 POC ABG pO2 Sodium Potassium Chloride Carbon Dioxide BUN Creatinine Glucose POC Glucose 152 H 165 H 156 H Calcium Magnesium Direct Bilirubin AST ALT Alkaline Phosphatase Total Creatine Kinase CK-MB (CK-2) CK-MB (CK-2) Rel Index Troponin T C-Reactive Protein Total Protein Albumin Triglycerides Ur Specific [place] Urine WBC (Auto) Miscellaneous Test 04/21/17 04/21/17 04/22/17 22:00 23:59 05:49 WBC RBC Hgb Hct MCV MCH Plt Count Lymph % (Auto) [place] % (Auto) Eos % (Auto) Baso % (Auto) Lymph # Baso # Seg Neutrophils % Lymphocytes % (Manual) Monocytes % (Manual) Nucleated RBC % Seg Neutrophils # Seg Neutrophils # Man Monocytes # (Manual) PT INR Activated Clotting Time POC ABG pH POC ABG pCO2 POC ABG pO2 Sodium Potassium Chloride Carbon Dioxide BUN Creatinine Glucose POC Glucose 166 H 173 H Calcium Magnesium Direct Bilirubin AST ALT Alkaline Phosphatase Total Creatine Kinase CK-MB (CK-2) CK-MB (CK-2) Rel Index Troponin T C-Reactive Protein Total Protein Albumin Triglycerides Ur Specific [place] Urine WBC (Auto) 10.0 H Miscellaneous Test 04/22/17 04/22/17 04/23/17 11:11 18:04 00:37 WBC RBC Hgb Hct MCV MCH Plt Count Lymph % (Auto) [place] % (Auto) Eos % (Auto) Baso % (Auto) Lymph # Baso # Seg Neutrophils % Lymphocytes % (Manual) Monocytes % (Manual) Nucleated RBC % Seg Neutrophils # Seg Neutrophils # Man Monocytes # (Manual) PT INR Activated Clotting Time POC ABG pH POC ABG pCO2 POC ABG pO2 Sodium Potassium Chloride Carbon Dioxide BUN Creatinine Glucose POC Glucose 172 H 140 H 135 H Calcium Magnesium Direct Bilirubin AST ALT Alkaline Phosphatase Total Creatine Kinase CK-MB (CK-2) CK-MB (CK-2) Rel Index Troponin T C-Reactive Protein Total Protein Albumin Triglycerides Ur Specific [place] Urine WBC (Auto) Miscellaneous Test 04/23/17 04/23/17 04/23/17 05:33 06:20 11:10 WBC RBC 3.19 L Hgb 9.9 L Hct 30.0 L MCV MCH Plt Count Lymph % (Auto) 8.0 L [place] % (Auto) Eos % (Auto) Baso % (Auto) Lymph # 0.8 L Baso # Seg Neutrophils % 84.5 H Lymphocytes % (Manual) Monocytes % (Manual) Nucleated RBC % Seg Neutrophils # 8.2 H Seg Neutrophils # Man Monocytes # (Manual) PT INR Activated Clotting Time POC ABG pH POC ABG pCO2 POC ABG pO2 Sodium Potassium Chloride Carbon Dioxide BUN Creatinine Glucose POC Glucose 134 H 134 H Calcium Magnesium Direct Bilirubin AST ALT Alkaline Phosphatase Total Creatine Kinase CK-MB (CK-2) CK-MB (CK-2) Rel Index Troponin T C-Reactive Protein Total Protein Albumin Triglycerides Ur Specific [place] Urine WBC (Auto) Miscellaneous Test 04/23/17 04/24/17 04/24/17 17:26 00:53 06:46 WBC RBC Hgb Hct MCV MCH Plt Count Lymph % (Auto) [place] % (Auto) Eos % (Auto) Baso % (Auto) Lymph # Baso # Seg Neutrophils % Lymphocytes % (Manual) Monocytes % (Manual) Nucleated RBC % Seg Neutrophils # Seg Neutrophils # Man Monocytes # (Manual) PT INR Activated Clotting Time POC ABG pH POC ABG pCO2 POC ABG pO2 Sodium Potassium Chloride Carbon Dioxide BUN Creatinine Glucose POC Glucose 164 H 146 H 125 H Calcium Magnesium Direct Bilirubin AST ALT Alkaline Phosphatase Total Creatine Kinase CK-MB (CK-2) CK-MB (CK-2) Rel Index Troponin T C-Reactive Protein Total Protein Albumin Triglycerides Ur Specific [place] Urine WBC (Auto) Miscellaneous Test 04/24/17 04/24/17 04/24/17 11:55 17:50 23:36 WBC RBC Hgb Hct MCV MCH Plt Count Lymph % (Auto) [place] % (Auto) Eos % (Auto) Baso % (Auto) Lymph # Baso # Seg Neutrophils % Lymphocytes % (Manual) Monocytes % (Manual) Nucleated RBC % Seg Neutrophils # Seg Neutrophils # Man Monocytes # (Manual) PT INR Activated Clotting Time POC ABG pH POC ABG pCO2 POC ABG pO2 Sodium Potassium Chloride Carbon Dioxide BUN Creatinine Glucose POC Glucose 156 H 146 H 131 H Calcium Magnesium Direct Bilirubin AST ALT Alkaline Phosphatase Total Creatine Kinase CK-MB (CK-2) CK-MB (CK-2) Rel Index Troponin T C-Reactive Protein Total Protein Albumin Triglycerides Ur Specific [place] Urine WBC (Auto) Miscellaneous Test 04/25/17 04/25/17 04/25/17 04:51 05:16 07:07 WBC RBC Hgb Hct MCV MCH Plt Count Lymph % (Auto) [place] % (Auto) Eos % (Auto) Baso % (Auto) Lymph # Baso # Seg Neutrophils % Lymphocytes % (Manual) Monocytes % (Manual) Nucleated RBC % Seg Neutrophils # Seg Neutrophils # Man Monocytes # (Manual) PT INR Activated Clotting Time POC ABG pH POC ABG pCO2 POC ABG pO2 Sodium Potassium Chloride Carbon Dioxide BUN Creatinine Glucose POC Glucose 139 H Calcium Magnesium Direct Bilirubin AST 105 H ALT 204 H Alkaline Phosphatase 189 H Total Creatine Kinase CK-MB (CK-2) CK-MB (CK-2) Rel Index Troponin T C-Reactive Protein Total Protein Albumin 2.4 L Triglycerides Ur Specific [place] Urine WBC (Auto) Miscellaneous Test Flexitest 1 H 04/25/17 04/25/17 04/25/17 12:29 17:23 23:32 WBC RBC Hgb Hct MCV MCH Plt Count Lymph % (Auto) [place] % (Auto) Eos % (Auto) Baso % (Auto) Lymph # Baso # Seg Neutrophils % Lymphocytes % (Manual) Monocytes % (Manual) Nucleated RBC % Seg Neutrophils # Seg Neutrophils # Man Monocytes # (Manual) PT INR Activated Clotting Time POC ABG pH POC ABG pCO2 POC ABG pO2 Sodium Potassium Chloride Carbon Dioxide BUN Creatinine Glucose POC Glucose 132 H 133 H 128 H Calcium Magnesium Direct Bilirubin AST ALT Alkaline Phosphatase Total Creatine Kinase CK-MB (CK-2) CK-MB (CK-2) Rel Index Troponin T C-Reactive Protein Total Protein Albumin Triglycerides Ur Specific [place] Urine WBC (Auto) Miscellaneous Test 04/26/17 04/26/17 04/26/17 05:24 11:28 17:09 WBC RBC Hgb Hct MCV MCH Plt Count Lymph % (Auto) [place] % (Auto) Eos % (Auto) Baso % (Auto) Lymph # Baso # Seg Neutrophils % Lymphocytes % (Manual) Monocytes % (Manual) Nucleated RBC % Seg Neutrophils # Seg Neutrophils # Man Monocytes # (Manual) PT INR Activated Clotting Time POC ABG pH POC ABG pCO2 POC ABG pO2 Sodium Potassium Chloride Carbon Dioxide BUN Creatinine Glucose POC Glucose 132 H 146 H 141 H Calcium Magnesium Direct Bilirubin AST ALT Alkaline Phosphatase Total Creatine Kinase CK-MB (CK-2) CK-MB (CK-2) Rel Index Troponin T C-Reactive Protein Total Protein Albumin Triglycerides Ur Specific [place] Urine WBC (Auto) Miscellaneous Test 04/26/17 04/27/17 04/27/17 23:52 05:40 05:40 WBC RBC 3.22 L Hgb 10.0 L Hct 29.9 L MCV MCH Plt Count Lymph % (Auto) [place] % (Auto) Eos % (Auto) Baso % (Auto) Lymph # Baso # Seg Neutrophils % 76.6 H Lymphocytes % (Manual) Monocytes % (Manual) Nucleated RBC % Seg Neutrophils # Seg Neutrophils # Man Monocytes # (Manual) PT INR Activated Clotting Time POC ABG pH POC ABG pCO2 POC ABG pO2 Sodium Potassium Chloride Carbon Dioxide BUN Creatinine Glucose POC Glucose 140 H Calcium Magnesium Direct Bilirubin AST 66 H ALT 137 H Alkaline Phosphatase 169 H Total Creatine Kinase CK-MB (CK-2) CK-MB (CK-2) Rel Index Troponin T C-Reactive Protein Total Protein 6.2 L Albumin 2.6 L Triglycerides Ur Specific [place] Urine WBC (Auto) Miscellaneous Test 04/27/17 04/27/17 04/27/17 05:40 06:10 11:13 WBC RBC Hgb Hct MCV MCH Plt Count Lymph % (Auto) [place] % (Auto) Eos % (Auto) Baso % (Auto) Lymph # Baso # Seg Neutrophils % Lymphocytes % (Manual) Monocytes % (Manual) Nucleated RBC % Seg Neutrophils # Seg Neutrophils # Man Monocytes # (Manual) PT INR Activated Clotting Time POC ABG pH POC ABG pCO2 POC ABG pO2 Sodium Potassium Chloride Carbon Dioxide BUN Creatinine 0.2 L Glucose 139 H POC Glucose 130 H 151 H Calcium Magnesium Direct Bilirubin AST ALT Alkaline Phosphatase Total Creatine Kinase CK-MB (CK-2) CK-MB (CK-2) Rel Index Troponin T C-Reactive Protein Total Protein Albumin Triglycerides Ur Specific [place] Urine WBC (Auto) Miscellaneous Test 04/27/17 04/27/17 04/28/17 17:37 23:19 05:24 WBC RBC Hgb Hct MCV MCH Plt Count Lymph % (Auto) [place] % (Auto) Eos % (Auto) Baso % (Auto) Lymph # Baso # Seg Neutrophils % Lymphocytes % (Manual) Monocytes % (Manual) Nucleated RBC % Seg Neutrophils # Seg Neutrophils # Man Monocytes # (Manual) PT INR Activated Clotting Time POC ABG pH POC ABG pCO2 POC ABG pO2 Sodium Potassium Chloride Carbon Dioxide BUN Creatinine Glucose POC Glucose 159 H 130 H 132 H Calcium Magnesium Direct Bilirubin AST ALT Alkaline Phosphatase Total Creatine Kinase CK-MB (CK-2) CK-MB (CK-2) Rel Index Troponin T C-Reactive Protein Total Protein Albumin Triglycerides Ur Specific [place] Urine WBC (Auto) Miscellaneous Test 04/28/17 04/28/17 04/28/17 11:15 17:38 23:23 WBC RBC Hgb Hct MCV MCH Plt Count Lymph % (Auto) [place] % (Auto) Eos % (Auto) Baso % (Auto) Lymph # Baso # Seg Neutrophils % Lymphocytes % (Manual) Monocytes % (Manual) Nucleated RBC % Seg Neutrophils # Seg Neutrophils # Man Monocytes # (Manual) PT INR Activated Clotting Time POC ABG pH POC ABG pCO2 POC ABG pO2 Sodium Potassium Chloride Carbon Dioxide BUN Creatinine Glucose POC Glucose 162 H 133 H 138 H Calcium Magnesium Direct Bilirubin AST ALT Alkaline Phosphatase Total Creatine Kinase CK-MB (CK-2) CK-MB (CK-2) Rel Index Troponin T C-Reactive Protein Total Protein Albumin Triglycerides Ur Specific [place] Urine WBC (Auto) Miscellaneous Test 04/29/17 04/29/17 04/29/17 05:15 12:55 17:21 WBC RBC Hgb Hct MCV MCH Plt Count Lymph % (Auto) [place] % (Auto) Eos % (Auto) Baso % (Auto) Lymph # Baso # Seg Neutrophils % Lymphocytes % (Manual) Monocytes % (Manual) Nucleated RBC % Seg Neutrophils # Seg Neutrophils # Man Monocytes # (Manual) PT INR Activated Clotting Time POC ABG pH POC ABG pCO2 POC ABG pO2 Sodium Potassium Chloride Carbon Dioxide BUN Creatinine Glucose POC Glucose 135 H 127 H 138 H Calcium Magnesium Direct Bilirubin AST ALT Alkaline Phosphatase Total Creatine Kinase CK-MB (CK-2) CK-MB (CK-2) Rel Index Troponin T C-Reactive Protein Total Protein Albumin Triglycerides Ur Specific [place] Urine WBC (Auto) Miscellaneous Test 04/29/17 04/30/17 04/30/17 23:52 04:55 12:22 WBC RBC Hgb Hct MCV MCH Plt Count Lymph % (Auto) [place] % (Auto) Eos % (Auto) Baso % (Auto) Lymph # Baso # Seg Neutrophils % Lymphocytes % (Manual) Monocytes % (Manual) Nucleated RBC % Seg Neutrophils # Seg Neutrophils # Man Monocytes # (Manual) PT INR Activated Clotting Time POC ABG pH POC ABG pCO2 POC ABG pO2 Sodium Potassium Chloride Carbon Dioxide BUN Creatinine Glucose POC Glucose 142 H 146 H 132 H Calcium Magnesium Direct Bilirubin AST ALT Alkaline Phosphatase Total Creatine Kinase CK-MB (CK-2) CK-MB (CK-2) Rel Index Troponin T C-Reactive Protein Total Protein Albumin Triglycerides Ur Specific [place] Urine WBC (Auto) Miscellaneous Test 04/30/17 04/30/17 04/30/17 14:25 17:47 18:20 WBC RBC Hgb Hct MCV MCH Plt Count Lymph % (Auto) [place] % (Auto) Eos % (Auto) Baso % (Auto) Lymph # Baso # Seg Neutrophils % Lymphocytes % (Manual) Monocytes % (Manual) Nucleated RBC % Seg Neutrophils # Seg Neutrophils # Man Monocytes # (Manual) PT INR Activated Clotting Time POC ABG pH 7.551 H POC ABG pCO2 32.7 L POC ABG pO2 Sodium Potassium Chloride Carbon Dioxide BUN 21 H Creatinine 0.2 L Glucose 141 H POC Glucose 139 H Calcium Magnesium Direct Bilirubin AST ALT Alkaline Phosphatase Total Creatine Kinase CK-MB (CK-2) CK-MB (CK-2) Rel Index Troponin T C-Reactive Protein Total Protein Albumin Triglycerides Ur Specific [place] Urine WBC (Auto) Miscellaneous Test 05/01/17 05/01/17 05/01/17 01:26 05:30 05:30 WBC RBC 3.49 L Hgb 10.3 L Hct 31.9 L MCV MCH Plt Count Lymph % (Auto) [place] % (Auto) 8.1 H Eos % (Auto) Baso % (Auto) Lymph # Baso # Seg Neutrophils % 71.3 H Lymphocytes % (Manual) Monocytes % (Manual) Nucleated RBC % Seg Neutrophils # Seg Neutrophils # Man Monocytes # (Manual) PT INR Activated Clotting Time POC ABG pH POC ABG pCO2 POC ABG pO2 Sodium 136 L Potassium Chloride 97.6 L Carbon Dioxide BUN Creatinine 0.2 L Glucose 123 H POC Glucose 116 H Calcium Magnesium Direct Bilirubin AST 71 H ALT 125 H Alkaline Phosphatase 158 H Total Creatine Kinase CK-MB (CK-2) CK-MB (CK-2) Rel Index Troponin T C-Reactive Protein Total Protein Albumin 2.6 L Triglycerides Ur Specific [place] Urine WBC (Auto) Miscellaneous Test 05/01/17 05/01/17 05/02/17 11:59 17:23 00:08 WBC RBC Hgb Hct MCV MCH Plt Count Lymph % (Auto) [place] % (Auto) Eos % (Auto) Baso % (Auto) Lymph # Baso # Seg Neutrophils % Lymphocytes % (Manual) Monocytes % (Manual) Nucleated RBC % Seg Neutrophils # Seg Neutrophils # Man Monocytes # (Manual) PT INR Activated Clotting Time POC ABG pH POC ABG pCO2 POC ABG pO2 Sodium Potassium Chloride Carbon Dioxide BUN Creatinine Glucose POC Glucose 118 H 144 H 122 H Calcium Magnesium Direct Bilirubin AST ALT Alkaline Phosphatase Total Creatine Kinase CK-MB (CK-2) CK-MB (CK-2) Rel Index Troponin T C-Reactive Protein Total Protein Albumin Triglycerides Ur Specific [place] Urine WBC (Auto) Miscellaneous Test 05/02/17 05/02/17 05/02/17 05:50 11:21 17:48 WBC RBC Hgb Hct MCV MCH Plt Count Lymph % (Auto) [place] % (Auto) Eos % (Auto) Baso % (Auto) Lymph # Baso # Seg Neutrophils % Lymphocytes % (Manual) Monocytes % (Manual) Nucleated RBC % Seg Neutrophils # Seg Neutrophils # Man Monocytes # (Manual) PT INR Activated Clotting Time POC ABG pH POC ABG pCO2 POC ABG pO2 Sodium Potassium Chloride Carbon Dioxide BUN Creatinine Glucose POC Glucose 120 H 121 H 140 H Calcium Magnesium Direct Bilirubin AST ALT Alkaline Phosphatase Total Creatine Kinase CK-MB (CK-2) CK-MB (CK-2) Rel Index Troponin T C-Reactive Protein Total Protein Albumin Triglycerides Ur Specific [place] Urine WBC (Auto) Miscellaneous Test 05/02/17 05/03/17 05/03/17 23:12 05:35 11:52 WBC RBC Hgb Hct MCV MCH Plt Count Lymph % (Auto) [place] % (Auto) Eos % (Auto) Baso % (Auto) Lymph # Baso # Seg Neutrophils % Lymphocytes % (Manual) Monocytes % (Manual) Nucleated RBC % Seg Neutrophils # Seg Neutrophils # Man Monocytes # (Manual) PT INR Activated Clotting Time POC ABG pH POC ABG pCO2 POC ABG pO2 Sodium Potassium Chloride Carbon Dioxide BUN Creatinine Glucose POC Glucose 128 H 113 H 126 H Calcium Magnesium Direct Bilirubin AST ALT Alkaline Phosphatase Total Creatine Kinase CK-MB (CK-2) CK-MB (CK-2) Rel Index Troponin T C-Reactive Protein Total Protein Albumin Triglycerides Ur Specific [place] Urine WBC (Auto) Miscellaneous Test 05/03/17 05/03/17 05/04/17 17:29 23:26 04:55 WBC RBC Hgb Hct MCV MCH Plt Count Lymph % (Auto) [place] % (Auto) Eos % (Auto) Baso % (Auto) Lymph # Baso # Seg Neutrophils % Lymphocytes % (Manual) Monocytes % (Manual) Nucleated RBC % Seg Neutrophils # Seg Neutrophils # Man Monocytes # (Manual) PT INR Activated Clotting Time POC ABG pH POC ABG pCO2 POC ABG pO2 Sodium Potassium Chloride Carbon Dioxide BUN Creatinine Glucose POC Glucose 141 H 129 H 126 H Calcium Magnesium Direct Bilirubin AST ALT Alkaline Phosphatase Total Creatine Kinase CK-MB (CK-2) CK-MB (CK-2) Rel Index Troponin T C-Reactive Protein Total Protein Albumin Triglycerides Ur Specific [place] Urine WBC (Auto) Miscellaneous Test 05/04/17 05/04/17 05/05/17 12:09 17:46 00:06 WBC RBC Hgb Hct MCV MCH Plt Count Lymph % (Auto) [place] % (Auto) Eos % (Auto) Baso % (Auto) Lymph # Baso # Seg Neutrophils % Lymphocytes % (Manual) Monocytes % (Manual) Nucleated RBC % Seg Neutrophils # Seg Neutrophils # Man Monocytes # (Manual) PT INR Activated Clotting Time POC ABG pH POC ABG pCO2 POC ABG pO2 Sodium Potassium Chloride Carbon Dioxide BUN Creatinine Glucose POC Glucose 125 H 125 H 110 H Calcium Magnesium Direct Bilirubin AST ALT Alkaline Phosphatase Total Creatine Kinase CK-MB (CK-2) CK-MB (CK-2) Rel Index Troponin T C-Reactive Protein Total Protein Albumin Triglycerides Ur Specific [place] Urine WBC (Auto) Miscellaneous Test 05/05/17 05/05/17 05/05/17 05:48 11:41 16:19 WBC RBC Hgb Hct MCV MCH Plt Count Lymph % (Auto) [place] % (Auto) Eos % (Auto) Baso % (Auto) Lymph # Baso # Seg Neutrophils % Lymphocytes % (Manual) Monocytes % (Manual) Nucleated RBC % Seg Neutrophils # Seg Neutrophils # Man Monocytes # (Manual) PT INR Activated Clotting Time POC ABG pH POC ABG pCO2 POC ABG pO2 Sodium Potassium Chloride Carbon Dioxide BUN Creatinine Glucose POC Glucose 124 H 122 H 120 H Calcium Magnesium Direct Bilirubin AST ALT Alkaline Phosphatase Total Creatine Kinase CK-MB (CK-2) CK-MB (CK-2) Rel Index Troponin T C-Reactive Protein Total Protein Albumin Triglycerides Ur Specific [place] Urine WBC (Auto) Miscellaneous Test 05/06/17 05/06/17 05/06/17 00:16 05:47 11:42 WBC RBC Hgb Hct MCV MCH Plt Count Lymph % (Auto) [place] % (Auto) Eos % (Auto) Baso % (Auto) Lymph # Baso # Seg Neutrophils % Lymphocytes % (Manual) Monocytes % (Manual) Nucleated RBC % Seg Neutrophils # Seg Neutrophils # Man Monocytes # (Manual) PT INR Activated Clotting Time POC ABG pH POC ABG pCO2 POC ABG pO2 Sodium Potassium Chloride Carbon Dioxide BUN Creatinine Glucose POC Glucose 110 H 142 H 120 H Calcium Magnesium Direct Bilirubin AST ALT Alkaline Phosphatase Total Creatine Kinase CK-MB (CK-2) CK-MB (CK-2) Rel Index Troponin T C-Reactive Protein Total Protein Albumin Triglycerides Ur Specific [place] Urine WBC (Auto) Miscellaneous Test 05/06/17 05/07/17 05/07/17 17:46 00:07 05:28 WBC RBC Hgb Hct MCV MCH Plt Count Lymph % (Auto) [place] % (Auto) Eos % (Auto) Baso % (Auto) Lymph # Baso # Seg Neutrophils % Lymphocytes % (Manual) Monocytes % (Manual) Nucleated RBC % Seg Neutrophils # Seg Neutrophils # Man Monocytes # (Manual) PT INR Activated Clotting Time POC ABG pH POC ABG pCO2 POC ABG pO2 Sodium Potassium Chloride Carbon Dioxide BUN Creatinine Glucose POC Glucose 127 H 145 H 124 H Calcium Magnesium Direct Bilirubin AST ALT Alkaline Phosphatase Total Creatine Kinase CK-MB (CK-2) CK-MB (CK-2) Rel Index Troponin T C-Reactive Protein Total Protein Albumin Triglycerides Ur Specific [place] Urine WBC (Auto) Miscellaneous Test 05/07/17 05/07/17 05/08/17 11:17 17:14 00:03 WBC RBC Hgb Hct MCV MCH Plt Count Lymph % (Auto) [place] % (Auto) Eos % (Auto) Baso % (Auto) Lymph # Baso # Seg Neutrophils % Lymphocytes % (Manual) Monocytes % (Manual) Nucleated RBC % Seg Neutrophils # Seg Neutrophils # Man Monocytes # (Manual) PT INR Activated Clotting Time POC ABG pH POC ABG pCO2 POC ABG pO2 Sodium Potassium Chloride Carbon Dioxide BUN Creatinine Glucose POC Glucose 144 H 125 H 122 H Calcium Magnesium Direct Bilirubin AST ALT Alkaline Phosphatase Total Creatine Kinase CK-MB (CK-2) CK-MB (CK-2) Rel Index Troponin T C-Reactive Protein Total Protein Albumin Triglycerides Ur Specific [place] Urine WBC (Auto) Miscellaneous Test 05/08/17 05/08/17 05/08/17 05:43 12:07 18:02 WBC RBC Hgb Hct MCV MCH Plt Count Lymph % (Auto) [place] % (Auto) Eos % (Auto) Baso % (Auto) Lymph # Baso # Seg Neutrophils % Lymphocytes % (Manual) Monocytes % (Manual) Nucleated RBC % Seg Neutrophils # Seg Neutrophils # Man Monocytes # (Manual) PT INR Activated Clotting Time POC ABG pH POC ABG pCO2 POC ABG pO2 Sodium Potassium Chloride Carbon Dioxide BUN Creatinine Glucose POC Glucose 117 H 114 H 129 H Calcium Magnesium Direct Bilirubin AST ALT Alkaline Phosphatase Total Creatine Kinase CK-MB (CK-2) CK-MB (CK-2) Rel Index Troponin T C-Reactive Protein Total Protein Albumin Triglycerides Ur Specific [place] Urine WBC (Auto) Miscellaneous Test 05/08/17 05/09/17 05/09/17 23:53 04:19 05:14 WBC RBC Hgb Hct MCV MCH Plt Count Lymph % (Auto) [place] % (Auto) Eos % (Auto) Baso % (Auto) Lymph # Baso # Seg Neutrophils % Lymphocytes % (Manual) Monocytes % (Manual) Nucleated RBC % Seg Neutrophils # Seg Neutrophils # Man Monocytes # (Manual) PT INR Activated Clotting Time POC ABG pH 7.524 H POC ABG pCO2 34.7 L POC ABG pO2 107 H Sodium Potassium Chloride Carbon Dioxide BUN Creatinine Glucose POC Glucose 125 H 118 H Calcium Magnesium Direct Bilirubin AST ALT Alkaline Phosphatase Total Creatine Kinase CK-MB (CK-2) CK-MB (CK-2) Rel Index Troponin T C-Reactive Protein Total Protein Albumin Triglycerides Ur Specific [place] Urine WBC (Auto) Miscellaneous Test 05/10/17 05/11/17 05/11/17 23:54 05:48 23:50 WBC RBC Hgb Hct MCV MCH Plt Count Lymph % (Auto) [place] % (Auto) Eos % (Auto) Baso % (Auto) Lymph # Baso # Seg Neutrophils % Lymphocytes % (Manual) Monocytes % (Manual) Nucleated RBC % Seg Neutrophils # Seg Neutrophils # Man Monocytes # (Manual) PT INR Activated Clotting Time POC ABG pH POC ABG pCO2 POC ABG pO2 Sodium Potassium Chloride Carbon Dioxide BUN Creatinine Glucose POC Glucose 126 H 137 H 130 H Calcium Magnesium Direct Bilirubin AST ALT Alkaline Phosphatase Total Creatine Kinase CK-MB (CK-2) CK-MB (CK-2) Rel Index Troponin T C-Reactive Protein Total Protein Albumin Triglycerides Ur Specific [place] Urine WBC (Auto) Miscellaneous Test 05/12/17 05:48 WBC RBC Hgb Hct MCV MCH Plt Count Lymph % (Auto) [place] % (Auto) Eos % (Auto) Baso % (Auto) Lymph # Baso # Seg Neutrophils % Lymphocytes % (Manual) Monocytes % (Manual) Nucleated RBC % Seg Neutrophils # Seg Neutrophils # Man Monocytes # (Manual) PT INR Activated Clotting Time POC ABG pH POC ABG pCO2 POC ABG pO2 Sodium Potassium Chloride Carbon Dioxide BUN Creatinine Glucose POC Glucose 126 H Calcium Magnesium Direct Bilirubin AST ALT Alkaline Phosphatase Total Creatine Kinase CK-MB (CK-2) CK-MB (CK-2) Rel Index Troponin T C-Reactive Protein Total Protein Albumin Triglycerides Ur Specific [place] Urine WBC (Auto) Miscellaneous Test
[2017-05-12] MEDS: LOPRESSOR PO SCH ×2 (10:15→21:15)
[2017-05-12] MEDS: ASPIRIN PO SCH (10:30)
[2017-05-12] MEDS: PROTONIX FEEDTUBE SCH (10:30)
[2017-05-12] MEDS: ELIQUIS PO SCH ×2 (10:32→21:37)
[2017-05-12] MEDS: PLAVIX PO SCH (10:32)
[2017-05-12] MEDS: ZESTRIL PO SCH (10:35)
[2017-05-12] MEDS: CORDARONE PO SCH ×2 (10:45→21:16)
--- NOTE | 2017-05-12 12:53 | Progress Note ---
Assessment and Plan 46 year old male with anoxic brain injury, due to cardiac arrest on 03/29/2017. He continues unresponsive. The last EEG per Dr. Perkins reveals no definite cortical activity. CT reveals extensive ischemic damage. 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 This is a very sad case as the patient is so young and had seemingly no health issues before this event. Prognosis is extremely poor. Awaiting progression to a T-piece. Plan - Encourage DNR status continue process of weaning from ventilator. Subjective Date of service: 05/12/17 Principal diagnosis: coma,ARV,s/p arrest Interval history: This 46 year old male sustained a witnessed carduac arrest on 03/29/2017, was brought to ER and transferred to [facility] for care of acute MO. 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 Echocardiogram reveals EF of 30 to 35%. A CT scan of the brain on 04/04/17 revealed diffuse edema consistent with anoxic injury. A repeat scan on 05/05/2017 revealed resolution of the edema with atrophy and laminar necrosis in parietal and occipital lobes consistent with anoxic injury and ischemic damage. The patient has undergone trach. and PEG placement. His exam has been stable with no response, occasional withdrawal to pain, eyes open with spontaneous blinking. 05/12/17 The patient continues unresponsive on the ventilator. He continues to randomly open his eyes. Objective - Exam Narrative Exam: HEENT - pupils are 4 mm. react to light to 3 mm. face symmetric. neck supple. Chest - clear to auscultation. Heart - reg. rate. normal S-1,S-2. Abdomen - soft, nontender. normal bowel sounds. Extremities - no edema. no lesions. Neuro - no response to verbal stimuli. Withdraws to painful stimuli all 4 limbs. shrugs to chest rub. CN's - eyes are yolked, seem to independently move in all directions. blinks spontaneously, but not to threat. Does not follow a flashlight. face is symmetric. Corneals intact. Swallows and yawns spontaneously. Motor - no spontaneous movement. Withdraws to painful stimuli. Reflexes - +3 on the rt., +2 on the lt. Sensory - withdraws to pain. . Cerebellar - cannot assess. - Vital Sign Vital Signs - 12hr 05/12/17 05/12/17 05/12/17 01:00 01:30 02:00 Temperature Pulse Rate 91 H 90 88 Pulse Rate [ From Monitor] Respiratory 18 18 22 Rate Blood Pressure 104/57 102/55 98/59 O2 Sat by Pulse 96 98 99 Oximetry O2 Sat by Pulse Oximetry [ Assessment] 05/12/17 05/12/17 05/12/17 02:30 03:00 03:07 Temperature Pulse Rate 86 87 86 Pulse Rate [ From Monitor] Respiratory 21 25 H Rate Blood Pressure 97/54 101/52 97/54 O2 Sat by Pulse 97 96 100 Oximetry O2 Sat by Pulse Oximetry [ Assessment] 05/12/17 05/12/17 05/12/17 03:31 04:00 04:30 Temperature 99.1 F Pulse Rate 80 84 84 Pulse Rate [ From Monitor] Respiratory 14 19 22 Rate Blood Pressure 101/52 104/69 114/76 O2 Sat by Pulse 100 100 Oximetry O2 Sat by Pulse Oximetry [ Assessment] 05/12/17 05/12/17 05/12/17 05:00 05:30 06:00 Temperature Pulse Rate 85 91 H 88 Pulse Rate [ From Monitor] Respiratory 17 18 22 Rate Blood Pressure 98/67 93/55 99/65 O2 Sat by Pulse 100 100 Oximetry O2 Sat by Pulse Oximetry [ Assessment] 05/12/17 05/12/17 05/12/17 06:30 07:00 07:30 Temperature Pulse Rate 88 86 81 Pulse Rate [ From Monitor] Respiratory 20 19 17 Rate Blood Pressure 96/62 99/62 93/58 O2 Sat by Pulse 100 99 Oximetry O2 Sat by Pulse Oximetry [ Assessment] 05/12/17 05/12/17 05/12/17 07:38 08:00 08:30 Temperature 99.3 F Pulse Rate 83 83 Pulse Rate [ 90 From Monitor] Respiratory 19 19 Rate Blood Pressure 91/57 95/57 O2 Sat by Pulse 96 98 Oximetry O2 Sat by Pulse Oximetry [ Assessment] 05/12/17 05/12/17 05/12/17 08:40 08:43 09:00 Temperature Pulse Rate 78 84 Pulse Rate [ From Monitor] Respiratory 23 Rate Blood Pressure 95/54 99/63 O2 Sat by Pulse 100 99 Oximetry O2 Sat by Pulse 100 Oximetry [ Assessment] 05/12/17 05/12/17 05/12/17 09:30 10:00 10:15 Temperature Pulse Rate 79 82 84 Pulse Rate [ From Monitor] Respiratory 13 20 Rate Blood Pressure 95/60 96/60 100/64 O2 Sat by Pulse 100 98 Oximetry O2 Sat by Pulse Oximetry [ Assessment] 05/12/17 05/12/17 05/12/17 10:30 10:35 11:00 Temperature Pulse Rate 81 84 81 Pulse Rate [ From Monitor] Respiratory 15 11 L Rate Blood Pressure 91/60 100/64 93/62 O2 Sat by Pulse 100 98 Oximetry O2 Sat by Pulse Oximetry [ Assessment] 05/12/17 05/12/17 11:30 12:00 Temperature 99.0 F Pulse Rate 84 83 Pulse Rate [ 90 From Monitor] Respiratory 9 L 12 Rate Blood Pressure 100/64 94/58 O2 Sat by Pulse 100 100 Oximetry O2 Sat by Pulse Oximetry [ Assessment] - Laboratory Findings CBC and BMP: 05/01/17 05:30 05/01/17 05:30 Abnormal Lab Findings: Abnormal Labs 03/29/17 03/29/17 03/29/17 11:35 11:35 11:40 WBC RBC Hgb Hct MCV 98 H MCH 33 H Plt Count Lymph % (Auto) [place] % (Auto) Eos % (Auto) Baso % (Auto) Lymph # Baso # Seg Neutrophils % Lymphocytes % (Manual) Monocytes % (Manual) 9.0 H Nucleated RBC % 1.0 H Seg Neutrophils # Seg Neutrophils # Man Monocytes # (Manual) 0.9 H PT 15.8 H INR 1.20 H Activated Clotting Time POC ABG pH POC ABG pCO2 POC ABG pO2 Sodium Potassium 2.7 L* Chloride 95.3 L Carbon Dioxide 17 L BUN Creatinine Glucose 435 H POC Glucose Calcium Magnesium Direct Bilirubin AST ALT Alkaline Phosphatase Total Creatine Kinase CK-MB (CK-2) CK-MB (CK-2) Rel Index Troponin T C-Reactive Protein Total Protein 6.1 L Albumin 3.5 L Triglycerides Ur Specific [place] Urine WBC (Auto) Miscellaneous Test 03/29/17 03/29/17 03/29/17 12:34 13:10 13:25 WBC RBC Hgb Hct MCV MCH Plt Count Lymph % (Auto) [place] % (Auto) Eos % (Auto) Baso % (Auto) Lymph # Baso # Seg Neutrophils % Lymphocytes % (Manual) Monocytes % (Manual) Nucleated RBC % Seg Neutrophils # Seg Neutrophils # Man Monocytes # (Manual) PT INR Activated Clotting Time 142 H 169 H 175 H POC ABG pH POC ABG pCO2 POC ABG pO2 Sodium Potassium Chloride Carbon Dioxide BUN Creatinine Glucose POC Glucose Calcium Magnesium Direct Bilirubin AST ALT Alkaline Phosphatase Total Creatine Kinase CK-MB (CK-2) CK-MB (CK-2) Rel Index Troponin T C-Reactive Protein Total Protein Albumin Triglycerides Ur Specific [place] Urine WBC (Auto) Miscellaneous Test 03/29/17 03/29/17 03/29/17 14:50 15:18 19:52 WBC RBC Hgb Hct MCV MCH Plt Count Lymph % (Auto) [place] % (Auto) Eos % (Auto) Baso % (Auto) Lymph # Baso # Seg Neutrophils % Lymphocytes % (Manual) Monocytes % (Manual) Nucleated RBC % Seg Neutrophils # Seg Neutrophils # Man Monocytes # (Manual) PT INR Activated Clotting Time 175 H POC ABG pH 7.293 L POC ABG pCO2 POC ABG pO2 602 H Sodium Potassium Chloride Carbon Dioxide BUN Creatinine Glucose POC Glucose Calcium Magnesium Direct Bilirubin AST ALT Alkaline Phosphatase Total Creatine Kinase 7263 H CK-MB (CK-2) > 300.0 H CK-MB (CK-2) Rel Index 4.1 H Troponin T 8.080 H* D C-Reactive Protein Total Protein Albumin Triglycerides 195 H Ur Specific [place] Urine WBC (Auto) Miscellaneous Test 03/30/17 03/30/17 03/30/17 03:50 03:50 06:19 WBC 19.5 H RBC Hgb Hct MCV MCH Plt Count Lymph % (Auto) [place] % (Auto) Eos % (Auto) Baso % (Auto) Lymph # Baso # Seg Neutrophils % Lymphocytes % (Manual) 7.0 L Monocytes % (Manual) Nucleated RBC % Seg Neutrophils # Seg Neutrophils # Man 12.7 H Monocytes # (Manual) 1.4 H PT INR Activated Clotting Time POC ABG pH POC ABG pCO2 28.2 L POC ABG pO2 108 H Sodium Potassium Chloride 108.9 H Carbon Dioxide 15 L BUN 25 H Creatinine Glucose 158 H POC Glucose Calcium 8.1 L Magnesium Direct Bilirubin AST ALT Alkaline Phosphatase Total Creatine Kinase 7963 H CK-MB (CK-2) > 300.0 H CK-MB (CK-2) Rel Index Troponin T 6.850 H* C-Reactive Protein Total Protein Albumin Triglycerides Ur Specific [place] Urine WBC (Auto) Miscellaneous Test 03/30/17 03/30/17 03/31/17 09:45 16:04 02:19 WBC RBC Hgb Hct MCV MCH Plt Count Lymph % (Auto) [place] % (Auto) Eos % (Auto) Baso % (Auto) Lymph # Baso # Seg Neutrophils % Lymphocytes % (Manual) Monocytes % (Manual) Nucleated RBC % Seg Neutrophils # Seg Neutrophils # Man Monocytes # (Manual) PT INR Activated Clotting Time POC ABG pH POC ABG pCO2 POC ABG pO2 Sodium Potassium Chloride Carbon Dioxide BUN Creatinine Glucose POC Glucose 137 H Calcium Magnesium Direct Bilirubin AST ALT Alkaline Phosphatase Total Creatine Kinase CK-MB (CK-2) CK-MB (CK-2) Rel Index Troponin T C-Reactive Protein 21.80 H Total Protein Albumin Triglycerides Ur Specific [place] 1.031 H Urine WBC (Auto) Miscellaneous Test 03/31/17 03/31/17 03/31/17 03:57 06:54 09:22 WBC RBC Hgb Hct MCV MCH Plt Count Lymph % (Auto) [place] % (Auto) Eos % (Auto) Baso % (Auto) Lymph # Baso # Seg Neutrophils % Lymphocytes % (Manual) Monocytes % (Manual) Nucleated RBC % Seg Neutrophils # Seg Neutrophils # Man Monocytes # (Manual) PT INR Activated Clotting Time POC ABG pH 7.475 H POC ABG pCO2 25.4 L POC ABG pO2 62 L Sodium Potassium Chloride Carbon Dioxide 19 L BUN 22 H Creatinine 0.6 L Glucose 148 H POC Glucose 143 H Calcium 8.3 L Magnesium Direct Bilirubin AST ALT Alkaline Phosphatase Total Creatine Kinase CK-MB (CK-2) CK-MB (CK-2) Rel Index Troponin T C-Reactive Protein Total Protein Albumin Triglycerides Ur Specific [place] Urine WBC (Auto) Miscellaneous Test 03/31/17 03/31/17 03/31/17 11:40 17:47 23:38 WBC RBC Hgb Hct MCV MCH Plt Count Lymph % (Auto) [place] % (Auto) Eos % (Auto) Baso % (Auto) Lymph # Baso # Seg Neutrophils % Lymphocytes % (Manual) Monocytes % (Manual) Nucleated RBC % Seg Neutrophils # Seg Neutrophils # Man Monocytes # (Manual) PT INR Activated Clotting Time POC ABG pH POC ABG pCO2 POC ABG pO2 Sodium Potassium Chloride Carbon Dioxide BUN Creatinine Glucose POC Glucose 127 H 137 H 148 H Calcium Magnesium Direct Bilirubin AST ALT Alkaline Phosphatase Total Creatine Kinase CK-MB (CK-2) CK-MB (CK-2) Rel Index Troponin T C-Reactive Protein Total Protein Albumin Triglycerides Ur Specific [place] Urine WBC (Auto) Miscellaneous Test 04/01/17 04/01/17 04/01/17 04:29 05:01 11:54 WBC RBC Hgb Hct MCV MCH Plt Count Lymph % (Auto) [place] % (Auto) Eos % (Auto) Baso % (Auto) Lymph # Baso # Seg Neutrophils % Lymphocytes % (Manual) Monocytes % (Manual) Nucleated RBC % Seg Neutrophils # Seg Neutrophils # Man Monocytes # (Manual) PT INR Activated Clotting Time POC ABG pH 7.513 H POC ABG pCO2 22.1 L POC ABG pO2 64 L Sodium Potassium Chloride Carbon Dioxide BUN Creatinine Glucose POC Glucose 121 H Calcium Magnesium Direct Bilirubin AST ALT Alkaline Phosphatase Total Creatine Kinase CK-MB (CK-2) CK-MB (CK-2) Rel Index Troponin T C-Reactive Protein Total Protein Albumin Triglycerides 151 H Ur Specific [place] Urine WBC (Auto) Miscellaneous Test 04/01/17 04/02/17 04/02/17 18:17 00:11 04:52 WBC RBC Hgb Hct MCV MCH Plt Count Lymph % (Auto) [place] % (Auto) Eos % (Auto) Baso % (Auto) Lymph # Baso # Seg Neutrophils % Lymphocytes % (Manual) Monocytes % (Manual) Nucleated RBC % Seg Neutrophils # Seg Neutrophils # Man Monocytes # (Manual) PT INR Activated Clotting Time POC ABG pH 7.524 H POC ABG pCO2 25.5 L POC ABG pO2 66 L Sodium Potassium Chloride Carbon Dioxide BUN Creatinine Glucose POC Glucose 117 H 122 H Calcium Magnesium Direct Bilirubin AST ALT Alkaline Phosphatase Total Creatine Kinase CK-MB (CK-2) CK-MB (CK-2) Rel Index Troponin T C-Reactive Protein Total Protein Albumin Triglycerides Ur Specific [place] Urine WBC (Auto) Miscellaneous Test 04/02/17 04/02/17 04/02/17 05:18 10:41 12:19 WBC RBC Hgb Hct MCV MCH Plt Count Lymph % (Auto) [place] % (Auto) Eos % (Auto) Baso % (Auto) Lymph # Baso # Seg Neutrophils % Lymphocytes % (Manual) Monocytes % (Manual) Nucleated RBC % Seg Neutrophils # Seg Neutrophils # Man Monocytes # (Manual) PT INR Activated Clotting Time POC ABG pH 7.534 H POC ABG pCO2 27.4 L POC ABG pO2 Sodium Potassium Chloride Carbon Dioxide BUN Creatinine Glucose POC Glucose 132 H 129 H Calcium Magnesium Direct Bilirubin AST ALT Alkaline Phosphatase Total Creatine Kinase CK-MB (CK-2) CK-MB (CK-2) Rel Index Troponin T C-Reactive Protein Total Protein Albumin Triglycerides Ur Specific [place] Urine WBC (Auto) Miscellaneous Test 04/02/17 04/03/17 04/03/17 18:05 00:08 05:09 WBC RBC Hgb Hct MCV MCH Plt Count Lymph % (Auto) [place] % (Auto) Eos % (Auto) Baso % (Auto) Lymph # Baso # Seg Neutrophils % Lymphocytes % (Manual) Monocytes % (Manual) Nucleated RBC % Seg Neutrophils # Seg Neutrophils # Man Monocytes # (Manual) PT INR Activated Clotting Time POC ABG pH 7.455 H POC ABG pCO2 33.2 L POC ABG pO2 120 H Sodium Potassium Chloride Carbon Dioxide BUN Creatinine Glucose POC Glucose 136 H 128 H Calcium Magnesium Direct Bilirubin AST ALT Alkaline Phosphatase Total Creatine Kinase CK-MB (CK-2) CK-MB (CK-2) Rel Index Troponin T C-Reactive Protein Total Protein Albumin Triglycerides Ur Specific [place] Urine WBC (Auto) Miscellaneous Test 04/03/17 04/03/17 04/03/17 06:32 11:54 12:16 WBC 11.9 H RBC Hgb Hct MCV MCH Plt Count 125 L Lymph % (Auto) 4.8 L [place] % (Auto) Eos % (Auto) Baso % (Auto) Lymph # 0.6 L Baso # Seg Neutrophils % 86.7 H Lymphocytes % (Manual) Monocytes % (Manual) Nucleated RBC % Seg Neutrophils # 10.3 H Seg Neutrophils # Man Monocytes # (Manual) PT INR Activated Clotting Time POC ABG pH POC ABG pCO2 POC ABG pO2 Sodium Potassium Chloride Carbon Dioxide BUN Creatinine Glucose POC Glucose 138 H 143 H Calcium Magnesium Direct Bilirubin AST ALT Alkaline Phosphatase Total Creatine Kinase CK-MB (CK-2) CK-MB (CK-2) Rel Index Troponin T C-Reactive Protein Total Protein Albumin Triglycerides Ur Specific [place] Urine WBC (Auto) Miscellaneous Test 04/03/17 04/03/17 04/04/17 17:33 23:59 04:34 WBC RBC Hgb Hct MCV MCH Plt Count Lymph % (Auto) [place] % (Auto) Eos % (Auto) Baso % (Auto) Lymph # Baso # Seg Neutrophils % Lymphocytes % (Manual) Monocytes % (Manual) Nucleated RBC % Seg Neutrophils # Seg Neutrophils # Man Monocytes # (Manual) PT INR Activated Clotting Time POC ABG pH 7.457 H POC ABG pCO2 29.8 L POC ABG pO2 76 L Sodium Potassium Chloride Carbon Dioxide BUN Creatinine Glucose POC Glucose 130 H 155 H Calcium Magnesium Direct Bilirubin AST ALT Alkaline Phosphatase Total Creatine Kinase CK-MB (CK-2) CK-MB (CK-2) Rel Index Troponin T C-Reactive Protein Total Protein Albumin Triglycerides Ur Specific [place] Urine WBC (Auto) Miscellaneous Test 04/04/17 04/04/17 04/04/17 05:27 12:22 18:18 WBC RBC Hgb Hct MCV MCH Plt Count Lymph % (Auto) [place] % (Auto) Eos % (Auto) Baso % (Auto) Lymph # Baso # Seg Neutrophils % Lymphocytes % (Manual) Monocytes % (Manual) Nucleated RBC % Seg Neutrophils # Seg Neutrophils # Man Monocytes # (Manual) PT INR Activated Clotting Time POC ABG pH POC ABG pCO2 POC ABG pO2 Sodium Potassium Chloride Carbon Dioxide BUN Creatinine Glucose POC Glucose 164 H 146 H 130 H Calcium Magnesium Direct Bilirubin AST ALT Alkaline Phosphatase Total Creatine Kinase CK-MB (CK-2) CK-MB (CK-2) Rel Index Troponin T C-Reactive Protein Total Protein Albumin Triglycerides Ur Specific [place] Urine WBC (Auto) Miscellaneous Test 04/05/17 04/05/17 04/05/17 04:43 05:28 11:36 WBC RBC Hgb Hct MCV MCH Plt Count Lymph % (Auto) [place] % (Auto) Eos % (Auto) Baso % (Auto) Lymph # Baso # Seg Neutrophils % Lymphocytes % (Manual) Monocytes % (Manual) Nucleated RBC % Seg Neutrophils # Seg Neutrophils # Man Monocytes # (Manual) PT INR Activated Clotting Time POC ABG pH 7.479 H POC ABG pCO2 33.5 L POC ABG pO2 76 L Sodium Potassium Chloride Carbon Dioxide BUN Creatinine Glucose POC Glucose 145 H 136 H Calcium Magnesium Direct Bilirubin AST ALT Alkaline Phosphatase Total Creatine Kinase CK-MB (CK-2) CK-MB (CK-2) Rel Index Troponin T C-Reactive Protein Total Protein Albumin Triglycerides Ur Specific [place] Urine WBC (Auto) Miscellaneous Test 04/05/17 04/06/17 04/06/17 17:58 00:16 05:26 WBC RBC Hgb Hct MCV MCH Plt Count Lymph % (Auto) [place] % (Auto) Eos % (Auto) Baso % (Auto) Lymph # Baso # Seg Neutrophils % Lymphocytes % (Manual) Monocytes % (Manual) Nucleated RBC % Seg Neutrophils # Seg Neutrophils # Man Monocytes # (Manual) PT INR Activated Clotting Time POC ABG pH POC ABG pCO2 POC ABG pO2 Sodium Potassium Chloride Carbon Dioxide BUN Creatinine Glucose POC Glucose 130 H 159 H 146 H Calcium Magnesium Direct Bilirubin AST ALT Alkaline Phosphatase Total Creatine Kinase CK-MB (CK-2) CK-MB (CK-2) Rel Index Troponin T C-Reactive Protein Total Protein Albumin Triglycerides Ur Specific [place] Urine WBC (Auto) Miscellaneous Test 04/06/17 04/06/17 04/07/17 13:11 16:54 11:45 WBC RBC Hgb Hct MCV MCH Plt Count Lymph % (Auto) [place] % (Auto) Eos % (Auto) Baso % (Auto) Lymph # Baso # Seg Neutrophils % Lymphocytes % (Manual) Monocytes % (Manual) Nucleated RBC % Seg Neutrophils # Seg Neutrophils # Man Monocytes # (Manual) PT INR Activated Clotting Time POC ABG pH 7.517 H POC ABG pCO2 32.1 L POC ABG pO2 Sodium Potassium Chloride Carbon Dioxide BUN Creatinine Glucose POC Glucose 132 H 123 H Calcium Magnesium Direct Bilirubin AST ALT Alkaline Phosphatase Total Creatine Kinase CK-MB (CK-2) CK-MB (CK-2) Rel Index Troponin T C-Reactive Protein Total Protein Albumin Triglycerides Ur Specific [place] Urine WBC (Auto) Miscellaneous Test 04/07/17 04/07/17 04/07/17 12:51 17:40 23:55 WBC RBC Hgb Hct MCV MCH Plt Count Lymph % (Auto) [place] % (Auto) Eos % (Auto) Baso % (Auto) Lymph # Baso # Seg Neutrophils % Lymphocytes % (Manual) Monocytes % (Manual) Nucleated RBC % Seg Neutrophils # Seg Neutrophils # Man Monocytes # (Manual) PT INR Activated Clotting Time POC ABG pH POC ABG pCO2 POC ABG pO2 Sodium Potassium Chloride Carbon Dioxide BUN Creatinine Glucose POC Glucose 138 H 154 H 143 H Calcium Magnesium Direct Bilirubin AST ALT Alkaline Phosphatase Total Creatine Kinase CK-MB (CK-2) CK-MB (CK-2) Rel Index Troponin T C-Reactive Protein Total Protein Albumin Triglycerides Ur Specific [place] Urine WBC (Auto) Miscellaneous Test 04/08/17 04/08/17 04/08/17 05:27 11:14 17:44 WBC RBC Hgb Hct MCV MCH Plt Count Lymph % (Auto) [place] % (Auto) Eos % (Auto) Baso % (Auto) Lymph # Baso # Seg Neutrophils % Lymphocytes % (Manual) Monocytes % (Manual) Nucleated RBC % Seg Neutrophils # Seg Neutrophils # Man Monocytes # (Manual) PT INR Activated Clotting Time POC ABG pH POC ABG pCO2 POC ABG pO2 Sodium Potassium Chloride Carbon Dioxide BUN Creatinine Glucose POC Glucose 142 H 153 H 129 H Calcium Magnesium Direct Bilirubin AST ALT Alkaline Phosphatase Total Creatine Kinase CK-MB (CK-2) CK-MB (CK-2) Rel Index Troponin T C-Reactive Protein Total Protein Albumin Triglycerides Ur Specific [place] Urine WBC (Auto) Miscellaneous Test 04/09/17 04/09/17 04/09/17 08:20 11:21 17:37 WBC RBC Hgb Hct MCV MCH Plt Count Lymph % (Auto) [place] % (Auto) Eos % (Auto) Baso % (Auto) Lymph # Baso # Seg Neutrophils % Lymphocytes % (Manual) Monocytes % (Manual) Nucleated RBC % Seg Neutrophils # Seg Neutrophils # Man Monocytes # (Manual) PT INR Activated Clotting Time POC ABG pH POC ABG pCO2 POC ABG pO2 Sodium 147 H Potassium Chloride 108.8 H Carbon Dioxide BUN 39 H Creatinine 0.5 L Glucose 138 H POC Glucose 152 H 109 H Calcium Magnesium Direct Bilirubin AST ALT Alkaline Phosphatase Total Creatine Kinase CK-MB (CK-2) CK-MB (CK-2) Rel Index Troponin T C-Reactive Protein Total Protein Albumin Triglycerides Ur Specific [place] Urine WBC (Auto) Miscellaneous Test 04/10/17 04/10/17 04/10/17 00:13 04:16 04:16 WBC RBC Hgb 11.5 L Hct MCV 96 H MCH Plt Count 103 L Lymph % (Auto) 11.1 L [place] % (Auto) Eos % (Auto) Baso % (Auto) Lymph # Baso # Seg Neutrophils % 81.5 H Lymphocytes % (Manual) Monocytes % (Manual) Nucleated RBC % Seg Neutrophils # 8.8 H Seg Neutrophils # Man Monocytes # (Manual) PT INR Activated Clotting Time POC ABG pH POC ABG pCO2 POC ABG pO2 Sodium 148 H Potassium Chloride 109.0 H Carbon Dioxide BUN 36 H Creatinine 0.5 L Glucose 131 H POC Glucose 127 H Calcium 8.1 L Magnesium 2.40 H Direct Bilirubin AST 206 H ALT 228 H Alkaline Phosphatase 178 H Total Creatine Kinase CK-MB (CK-2) CK-MB (CK-2) Rel Index Troponin T C-Reactive Protein Total Protein Albumin 2.8 L Triglycerides Ur Specific [place] Urine WBC (Auto) Miscellaneous Test 04/10/17 04/10/17 04/10/17 06:01 11:57 18:27 WBC RBC Hgb Hct MCV MCH Plt Count Lymph % (Auto) [place] % (Auto) Eos % (Auto) Baso % (Auto) Lymph # Baso # Seg Neutrophils % Lymphocytes % (Manual) Monocytes % (Manual) Nucleated RBC % Seg Neutrophils # Seg Neutrophils # Man Monocytes # (Manual) PT INR Activated Clotting Time POC ABG pH POC ABG pCO2 POC ABG pO2 Sodium Potassium Chloride Carbon Dioxide BUN Creatinine Glucose POC Glucose 108 H 154 H 130 H Calcium Magnesium Direct Bilirubin AST ALT Alkaline Phosphatase Total Creatine Kinase CK-MB (CK-2) CK-MB (CK-2) Rel Index Troponin T C-Reactive Protein Total Protein Albumin Triglycerides Ur Specific [place] Urine WBC (Auto) Miscellaneous Test 04/11/17 04/11/17 04/12/17 12:25 17:10 00:22 WBC RBC Hgb Hct MCV MCH Plt Count Lymph % (Auto) [place] % (Auto) Eos % (Auto) Baso % (Auto) Lymph # Baso # Seg Neutrophils % Lymphocytes % (Manual) Monocytes % (Manual) Nucleated RBC % Seg Neutrophils # Seg Neutrophils # Man Monocytes # (Manual) PT INR Activated Clotting Time POC ABG pH POC ABG pCO2 POC ABG pO2 Sodium Potassium Chloride Carbon Dioxide BUN Creatinine Glucose POC Glucose 107 H 129 H 128 H Calcium Magnesium Direct Bilirubin AST ALT Alkaline Phosphatase Total Creatine Kinase CK-MB (CK-2) CK-MB (CK-2) Rel Index Troponin T C-Reactive Protein Total Protein Albumin Triglycerides Ur Specific [place] Urine WBC (Auto) Miscellaneous Test 04/12/17 04/12/17 04/12/17 05:00 11:57 17:47 WBC RBC Hgb Hct MCV MCH Plt Count Lymph % (Auto) [place] % (Auto) Eos % (Auto) Baso % (Auto) Lymph # Baso # Seg Neutrophils % Lymphocytes % (Manual) Monocytes % (Manual) Nucleated RBC % Seg Neutrophils # Seg Neutrophils # Man Monocytes # (Manual) PT INR Activated Clotting Time POC ABG pH POC ABG pCO2 POC ABG pO2 Sodium Potassium Chloride Carbon Dioxide BUN Creatinine Glucose POC Glucose 140 H 142 H Calcium Magnesium Direct Bilirubin AST 158 H ALT 184 H Alkaline Phosphatase 170 H Total Creatine Kinase CK-MB (CK-2) CK-MB (CK-2) Rel Index Troponin T C-Reactive Protein Total Protein Albumin 2.8 L Triglycerides Ur Specific [place] Urine WBC (Auto) Miscellaneous Test 04/12/17 04/12/17 04/13/17 21:36 21:36 01:37 WBC RBC Hgb Hct MCV MCH Plt Count Lymph % (Auto) [place] % (Auto) Eos % (Auto) Baso % (Auto) Lymph # Baso # Seg Neutrophils % Lymphocytes % (Manual) Monocytes % (Manual) Nucleated RBC % Seg Neutrophils # Seg Neutrophils # Man Monocytes # (Manual) PT INR Activated Clotting Time POC ABG pH POC ABG pCO2 POC ABG pO2 Sodium Potassium Chloride Carbon Dioxide BUN Creatinine Glucose POC Glucose 126 H Calcium Magnesium Direct Bilirubin AST ALT Alkaline Phosphatase Total Creatine Kinase 1404 H CK-MB (CK-2) 8.0 H CK-MB (CK-2) Rel Index Troponin T 0.767 H* C-Reactive Protein Total Protein Albumin Triglycerides Ur Specific [place] Urine WBC (Auto) Miscellaneous Test 04/13/17 04/13/17 04/13/17 04:45 04:52 12:17 WBC RBC Hgb Hct MCV MCH Plt Count Lymph % (Auto) [place] % (Auto) Eos % (Auto) Baso % (Auto) Lymph # Baso # Seg Neutrophils % Lymphocytes % (Manual) Monocytes % (Manual) Nucleated RBC % Seg Neutrophils # Seg Neutrophils # Man Monocytes # (Manual) PT INR Activated Clotting Time POC ABG pH POC ABG pCO2 POC ABG pO2 Sodium 148 H Potassium Chloride 112.8 H Carbon Dioxide BUN 33 H Creatinine 0.4 L Glucose 121 H POC Glucose 126 H 149 H Calcium Magnesium Direct Bilirubin AST 160 H ALT 189 H Alkaline Phosphatase 166 H Total Creatine Kinase CK-MB (CK-2) CK-MB (CK-2) Rel Index Troponin T C-Reactive Protein Total Protein Albumin 2.6 L Triglycerides Ur Specific [place] Urine WBC (Auto) Miscellaneous Test 04/13/17 04/14/17 04/14/17 17:45 00:20 00:45 WBC RBC Hgb Hct MCV MCH Plt Count Lymph % (Auto) [place] % (Auto) Eos % (Auto) Baso % (Auto) Lymph # Baso # Seg Neutrophils % Lymphocytes % (Manual) Monocytes % (Manual) Nucleated RBC % Seg Neutrophils # Seg Neutrophils # Man Monocytes # (Manual) PT INR Activated Clotting Time POC ABG pH POC ABG pCO2 POC ABG pO2 Sodium Potassium Chloride Carbon Dioxide BUN Creatinine Glucose POC Glucose 130 H 144 H 144 H Calcium Magnesium Direct Bilirubin AST ALT Alkaline Phosphatase Total Creatine Kinase CK-MB (CK-2) CK-MB (CK-2) Rel Index Troponin T C-Reactive Protein Total Protein Albumin Triglycerides Ur Specific [place] Urine WBC (Auto) Miscellaneous Test 04/14/17 04/14/17 04/14/17 05:40 11:06 11:31 WBC RBC Hgb Hct MCV MCH Plt Count Lymph % (Auto) [place] % (Auto) Eos % (Auto) Baso % (Auto) Lymph # Baso # Seg Neutrophils % Lymphocytes % (Manual) Monocytes % (Manual) Nucleated RBC % Seg Neutrophils # Seg Neutrophils # Man Monocytes # (Manual) PT INR Activated Clotting Time POC ABG pH POC ABG pCO2 POC ABG pO2 Sodium Potassium Chloride Carbon Dioxide BUN Creatinine Glucose POC Glucose 139 H 123 H Calcium Magnesium Direct Bilirubin AST ALT Alkaline Phosphatase Total Creatine Kinase CK-MB (CK-2) CK-MB (CK-2) Rel Index Troponin T C-Reactive Protein Total Protein Albumin Triglycerides Ur Specific [place] 1.033 H Urine WBC (Auto) > 182.0 H Miscellaneous Test 04/14/17 04/14/17 04/15/17 18:00 23:52 05:15 WBC 12.5 H RBC 3.38 L Hgb 10.6 L Hct 32.7 L MCV 97 H MCH Plt Count 107 L Lymph % (Auto) 8.7 L [place] % (Auto) Eos % (Auto) Baso % (Auto) Lymph # 1.1 L Baso # Seg Neutrophils % 86.1 H Lymphocytes % (Manual) Monocytes % (Manual) Nucleated RBC % Seg Neutrophils # 10.7 H Seg Neutrophils # Man Monocytes # (Manual) PT INR Activated Clotting Time POC ABG pH POC ABG pCO2 POC ABG pO2 Sodium Potassium Chloride Carbon Dioxide BUN Creatinine Glucose POC Glucose 133 H 133 H Calcium Magnesium Direct Bilirubin AST ALT Alkaline Phosphatase Total Creatine Kinase CK-MB (CK-2) CK-MB (CK-2) Rel Index Troponin T C-Reactive Protein Total Protein Albumin Triglycerides Ur Specific [place] Urine WBC (Auto) Miscellaneous Test 04/15/17 04/15/17 04/15/17 05:15 05:25 11:50 WBC RBC Hgb Hct MCV MCH Plt Count Lymph % (Auto) [place] % (Auto) Eos % (Auto) Baso % (Auto) Lymph # Baso # Seg Neutrophils % Lymphocytes % (Manual) Monocytes % (Manual) Nucleated RBC % Seg Neutrophils # Seg Neutrophils # Man Monocytes # (Manual) PT INR Activated Clotting Time POC ABG pH POC ABG pCO2 POC ABG pO2 Sodium 149 H Potassium 3.5 L Chloride 114.1 H Carbon Dioxide 21 L BUN 29 H Creatinine 0.4 L Glucose 128 H POC Glucose 133 H 107 H Calcium 8.3 L Magnesium Direct Bilirubin 0.4 H AST 149 H ALT 182 H Alkaline Phosphatase 143 H Total Creatine Kinase CK-MB (CK-2) CK-MB (CK-2) Rel Index Troponin T C-Reactive Protein Total Protein Albumin 2.5 L Triglycerides Ur Specific [place] Urine WBC (Auto) Miscellaneous Test 04/15/17 04/16/17 04/16/17 16:55 00:02 03:17 WBC RBC 3.39 L Hgb 10.5 L Hct 32.4 L MCV 96 H MCH Plt Count 106 L Lymph % (Auto) 6.7 L [place] % (Auto) Eos % (Auto) Baso % (Auto) Lymph # 0.6 L Baso # Seg Neutrophils % 86.8 H Lymphocytes % (Manual) Monocytes % (Manual) Nucleated RBC % Seg Neutrophils # 8.2 H Seg Neutrophils # Man Monocytes # (Manual) PT INR Activated Clotting Time POC ABG pH POC ABG pCO2 POC ABG pO2 Sodium Potassium Chloride Carbon Dioxide BUN Creatinine Glucose POC Glucose 146 H 148 H Calcium Magnesium Direct Bilirubin AST ALT Alkaline Phosphatase Total Creatine Kinase CK-MB (CK-2) CK-MB (CK-2) Rel Index Troponin T C-Reactive Protein Total Protein Albumin Triglycerides Ur Specific [place] Urine WBC (Auto) Miscellaneous Test 04/16/17 04/16/17 04/16/17 03:17 05:19 11:13 WBC RBC Hgb Hct MCV MCH Plt Count Lymph % (Auto) [place] % (Auto) Eos % (Auto) Baso % (Auto) Lymph # Baso # Seg Neutrophils % Lymphocytes % (Manual) Monocytes % (Manual) Nucleated RBC % Seg Neutrophils # Seg Neutrophils # Man Monocytes # (Manual) PT INR Activated Clotting Time POC ABG pH POC ABG pCO2 POC ABG pO2 Sodium 149 H Potassium Chloride 111.1 H Carbon Dioxide 20 L BUN 27 H Creatinine 0.3 L Glucose 156 H POC Glucose 171 H 169 H Calcium 8.3 L Magnesium Direct Bilirubin AST ALT Alkaline Phosphatase Total Creatine Kinase CK-MB (CK-2) CK-MB (CK-2) Rel Index Troponin T C-Reactive Protein Total Protein Albumin Triglycerides Ur Specific [place] Urine WBC (Auto) Miscellaneous Test 04/16/17 04/17/17 04/17/17 17:03 00:00 05:09 WBC RBC Hgb Hct MCV MCH Plt Count Lymph % (Auto) [place] % (Auto) Eos % (Auto) Baso % (Auto) Lymph # Baso # Seg Neutrophils % Lymphocytes % (Manual) Monocytes % (Manual) Nucleated RBC % Seg Neutrophils # Seg Neutrophils # Man Monocytes # (Manual) PT INR Activated Clotting Time POC ABG pH POC ABG pCO2 POC ABG pO2 Sodium Potassium Chloride Carbon Dioxide BUN Creatinine Glucose POC Glucose 151 H 165 H 145 H Calcium Magnesium Direct Bilirubin AST ALT Alkaline Phosphatase Total Creatine Kinase CK-MB (CK-2) CK-MB (CK-2) Rel Index Troponin T C-Reactive Protein Total Protein Albumin Triglycerides Ur Specific [place] Urine WBC (Auto) Miscellaneous Test 04/17/17 04/17/17 04/18/17 11:38 17:47 00:01 WBC RBC Hgb Hct MCV MCH Plt Count Lymph % (Auto) [place] % (Auto) Eos % (Auto) Baso % (Auto) Lymph # Baso # Seg Neutrophils % Lymphocytes % (Manual) Monocytes % (Manual) Nucleated RBC % Seg Neutrophils # Seg Neutrophils # Man Monocytes # (Manual) PT INR Activated Clotting Time POC ABG pH POC ABG pCO2 POC ABG pO2 Sodium Potassium Chloride Carbon Dioxide BUN Creatinine Glucose POC Glucose 170 H 161 H 131 H Calcium Magnesium Direct Bilirubin AST ALT Alkaline Phosphatase Total Creatine Kinase CK-MB (CK-2) CK-MB (CK-2) Rel Index Troponin T C-Reactive Protein Total Protein Albumin Triglycerides Ur Specific [place] Urine WBC (Auto) Miscellaneous Test 04/18/17 04/18/17 04/18/17 03:55 03:55 05:30 WBC RBC 3.05 L Hgb 9.8 L Hct 29.0 L MCV 95 H MCH Plt Count 113 L Lymph % (Auto) [place] % (Auto) Eos % (Auto) 5.3 H Baso % (Auto) Lymph # Baso # Seg Neutrophils % 71.5 H Lymphocytes % (Manual) Monocytes % (Manual) Nucleated RBC % Seg Neutrophils # Seg Neutrophils # Man Monocytes # (Manual) PT INR Activated Clotting Time POC ABG pH 7.460 H POC ABG pCO2 30.8 L POC ABG pO2 129 H Sodium Potassium Chloride Carbon Dioxide 21 L BUN 25 H Creatinine 0.4 L Glucose 123 H POC Glucose Calcium 8.3 L Magnesium Direct Bilirubin AST ALT Alkaline Phosphatase Total Creatine Kinase CK-MB (CK-2) CK-MB (CK-2) Rel Index Troponin T C-Reactive Protein Total Protein Albumin Triglycerides Ur Specific [place] Urine WBC (Auto) Miscellaneous Test 04/18/17 04/18/17 04/19/17 17:10 23:40 04:36 WBC RBC 3.21 L Hgb 10.2 L Hct 30.4 L MCV 95 H MCH Plt Count 131 L Lymph % (Auto) 12.1 L [place] % (Auto) Eos % (Auto) 4.7 H Baso % (Auto) 2.4 H Lymph # 0.9 L Baso # 0.2 H Seg Neutrophils % 75.0 H Lymphocytes % (Manual) Monocytes % (Manual) Nucleated RBC % Seg Neutrophils # Seg Neutrophils # Man Monocytes # (Manual) PT INR Activated Clotting Time POC ABG pH POC ABG pCO2 POC ABG pO2 Sodium Potassium Chloride Carbon Dioxide BUN Creatinine Glucose POC Glucose 135 H 157 H Calcium Magnesium Direct Bilirubin AST ALT Alkaline Phosphatase Total Creatine Kinase CK-MB (CK-2) CK-MB (CK-2) Rel Index Troponin T C-Reactive Protein Total Protein Albumin Triglycerides Ur Specific [place] Urine WBC (Auto) Miscellaneous Test 04/19/17 04/19/17 04/19/17 04:36 05:12 06:50 WBC RBC Hgb Hct MCV MCH Plt Count Lymph % (Auto) [place] % (Auto) Eos % (Auto) Baso % (Auto) Lymph # Baso # Seg Neutrophils % Lymphocytes % (Manual) Monocytes % (Manual) Nucleated RBC % Seg Neutrophils # Seg Neutrophils # Man Monocytes # (Manual) PT INR Activated Clotting Time POC ABG pH 7.516 H POC ABG pCO2 28.0 L POC ABG pO2 Sodium Potassium Chloride Carbon Dioxide 21 L BUN 23 H Creatinine 0.2 L Glucose 137 H POC Glucose 131 H Calcium 7.9 L Magnesium Direct Bilirubin AST ALT Alkaline Phosphatase Total Creatine Kinase CK-MB (CK-2) CK-MB (CK-2) Rel Index Troponin T C-Reactive Protein Total Protein Albumin Triglycerides Ur Specific [place] Urine WBC (Auto) Miscellaneous Test 04/19/17 04/19/17 04/20/17 12:36 17:42 00:12 WBC RBC Hgb Hct MCV MCH Plt Count Lymph % (Auto) [place] % (Auto) Eos % (Auto) Baso % (Auto) Lymph # Baso # Seg Neutrophils % Lymphocytes % (Manual) Monocytes % (Manual) Nucleated RBC % Seg Neutrophils # Seg Neutrophils # Man Monocytes # (Manual) PT INR Activated Clotting Time POC ABG pH POC ABG pCO2 POC ABG pO2 Sodium Potassium Chloride Carbon Dioxide BUN Creatinine Glucose POC Glucose 128 H 140 H 132 H Calcium Magnesium Direct Bilirubin AST ALT Alkaline Phosphatase Total Creatine Kinase CK-MB (CK-2) CK-MB (CK-2) Rel Index Troponin T C-Reactive Protein Total Protein Albumin Triglycerides Ur Specific [place] Urine WBC (Auto) Miscellaneous Test 04/20/17 04/20/17 04/20/17 03:35 03:35 05:10 WBC RBC 3.34 L Hgb 10.4 L Hct 31.6 L MCV 95 H MCH Plt Count Lymph % (Auto) 12.9 L [place] % (Auto) Eos % (Auto) Baso % (Auto) Lymph # Baso # Seg Neutrophils % 77.3 H Lymphocytes % (Manual) Monocytes % (Manual) Nucleated RBC % Seg Neutrophils # Seg Neutrophils # Man Monocytes # (Manual) PT INR Activated Clotting Time POC ABG pH POC ABG pCO2 POC ABG pO2 Sodium Potassium Chloride Carbon Dioxide BUN Creatinine 0.3 L Glucose 155 H POC Glucose 135 H Calcium 7.8 L Magnesium Direct Bilirubin AST ALT Alkaline Phosphatase Total Creatine Kinase CK-MB (CK-2) CK-MB (CK-2) Rel Index Troponin T C-Reactive Protein Total Protein Albumin Triglycerides Ur Specific [place] Urine WBC (Auto) Miscellaneous Test 04/20/17 04/20/17 04/21/17 12:49 18:21 00:05 WBC RBC Hgb Hct MCV MCH Plt Count Lymph % (Auto) [place] % (Auto) Eos % (Auto) Baso % (Auto) Lymph # Baso # Seg Neutrophils % Lymphocytes % (Manual) Monocytes % (Manual) Nucleated RBC % Seg Neutrophils # Seg Neutrophils # Man Monocytes # (Manual) PT INR Activated Clotting Time POC ABG pH POC ABG pCO2 POC ABG pO2 Sodium Potassium Chloride Carbon Dioxide BUN Creatinine Glucose POC Glucose 155 H 165 H 141 H Calcium Magnesium Direct Bilirubin AST ALT Alkaline Phosphatase Total Creatine Kinase CK-MB (CK-2) CK-MB (CK-2) Rel Index Troponin T C-Reactive Protein Total Protein Albumin Triglycerides Ur Specific [place] Urine WBC (Auto) Miscellaneous Test 04/21/17 04/21/17 04/21/17 06:00 12:11 17:04 WBC RBC Hgb Hct MCV MCH Plt Count Lymph % (Auto) [place] % (Auto) Eos % (Auto) Baso % (Auto) Lymph # Baso # Seg Neutrophils % Lymphocytes % (Manual) Monocytes % (Manual) Nucleated RBC % Seg Neutrophils # Seg Neutrophils # Man Monocytes # (Manual) PT INR Activated Clotting Time POC ABG pH POC ABG pCO2 POC ABG pO2 Sodium Potassium Chloride Carbon Dioxide BUN Creatinine Glucose POC Glucose 152 H 165 H 156 H Calcium Magnesium Direct Bilirubin AST ALT Alkaline Phosphatase Total Creatine Kinase CK-MB (CK-2) CK-MB (CK-2) Rel Index Troponin T C-Reactive Protein Total Protein Albumin Triglycerides Ur Specific [place] Urine WBC (Auto) Miscellaneous Test 04/21/17 04/21/17 04/22/17 22:00 23:59 05:49 WBC RBC Hgb Hct MCV MCH Plt Count Lymph % (Auto) [place] % (Auto) Eos % (Auto) Baso % (Auto) Lymph # Baso # Seg Neutrophils % Lymphocytes % (Manual) Monocytes % (Manual) Nucleated RBC % Seg Neutrophils # Seg Neutrophils # Man Monocytes # (Manual) PT INR Activated Clotting Time POC ABG pH POC ABG pCO2 POC ABG pO2 Sodium Potassium Chloride Carbon Dioxide BUN Creatinine Glucose POC Glucose 166 H 173 H Calcium Magnesium Direct Bilirubin AST ALT Alkaline Phosphatase Total Creatine Kinase CK-MB (CK-2) CK-MB (CK-2) Rel Index Troponin T C-Reactive Protein Total Protein Albumin Triglycerides Ur Specific [place] Urine WBC (Auto) 10.0 H Miscellaneous Test 04/22/17 04/22/17 04/23/17 11:11 18:04 00:37 WBC RBC Hgb Hct MCV MCH Plt Count Lymph % (Auto) [place] % (Auto) Eos % (Auto) Baso % (Auto) Lymph # Baso # Seg Neutrophils % Lymphocytes % (Manual) Monocytes % (Manual) Nucleated RBC % Seg Neutrophils # Seg Neutrophils # Man Monocytes # (Manual) PT INR Activated Clotting Time POC ABG pH POC ABG pCO2 POC ABG pO2 Sodium Potassium Chloride Carbon Dioxide BUN Creatinine Glucose POC Glucose 172 H 140 H 135 H Calcium Magnesium Direct Bilirubin AST ALT Alkaline Phosphatase Total Creatine Kinase CK-MB (CK-2) CK-MB (CK-2) Rel Index Troponin T C-Reactive Protein Total Protein Albumin Triglycerides Ur Specific [place] Urine WBC (Auto) Miscellaneous Test 04/23/17 04/23/17 04/23/17 05:33 06:20 11:10 WBC RBC 3.19 L Hgb 9.9 L Hct 30.0 L MCV MCH Plt Count Lymph % (Auto) 8.0 L [place] % (Auto) Eos % (Auto) Baso % (Auto) Lymph # 0.8 L Baso # Seg Neutrophils % 84.5 H Lymphocytes % (Manual) Monocytes % (Manual) Nucleated RBC % Seg Neutrophils # 8.2 H Seg Neutrophils # Man Monocytes # (Manual) PT INR Activated Clotting Time POC ABG pH POC ABG pCO2 POC ABG pO2 Sodium Potassium Chloride Carbon Dioxide BUN Creatinine Glucose POC Glucose 134 H 134 H Calcium Magnesium Direct Bilirubin AST ALT Alkaline Phosphatase Total Creatine Kinase CK-MB (CK-2) CK-MB (CK-2) Rel Index Troponin T C-Reactive Protein Total Protein Albumin Triglycerides Ur Specific [place] Urine WBC (Auto) Miscellaneous Test 04/23/17 04/24/17 04/24/17 17:26 00:53 06:46 WBC RBC Hgb Hct MCV MCH Plt Count Lymph % (Auto) [place] % (Auto) Eos % (Auto) Baso % (Auto) Lymph # Baso # Seg Neutrophils % Lymphocytes % (Manual) Monocytes % (Manual) Nucleated RBC % Seg Neutrophils # Seg Neutrophils # Man Monocytes # (Manual) PT INR Activated Clotting Time POC ABG pH POC ABG pCO2 POC ABG pO2 Sodium Potassium Chloride Carbon Dioxide BUN Creatinine Glucose POC Glucose 164 H 146 H 125 H Calcium Magnesium Direct Bilirubin AST ALT Alkaline Phosphatase Total Creatine Kinase CK-MB (CK-2) CK-MB (CK-2) Rel Index Troponin T C-Reactive Protein Total Protein Albumin Triglycerides Ur Specific [place] Urine WBC (Auto) Miscellaneous Test 04/24/17 04/24/17 04/24/17 11:55 17:50 23:36 WBC RBC Hgb Hct MCV MCH Plt Count Lymph % (Auto) [place] % (Auto) Eos % (Auto) Baso % (Auto) Lymph # Baso # Seg Neutrophils % Lymphocytes % (Manual) Monocytes % (Manual) Nucleated RBC % Seg Neutrophils # Seg Neutrophils # Man Monocytes # (Manual) PT INR Activated Clotting Time POC ABG pH POC ABG pCO2 POC ABG pO2 Sodium Potassium Chloride Carbon Dioxide BUN Creatinine Glucose POC Glucose 156 H 146 H 131 H Calcium Magnesium Direct Bilirubin AST ALT Alkaline Phosphatase Total Creatine Kinase CK-MB (CK-2) CK-MB (CK-2) Rel Index Troponin T C-Reactive Protein Total Protein Albumin Triglycerides Ur Specific [place] Urine WBC (Auto) Miscellaneous Test 04/25/17 04/25/17 04/25/17 04:51 05:16 07:07 WBC RBC Hgb Hct MCV MCH Plt Count Lymph % (Auto) [place] % (Auto) Eos % (Auto) Baso % (Auto) Lymph # Baso # Seg Neutrophils % Lymphocytes % (Manual) Monocytes % (Manual) Nucleated RBC % Seg Neutrophils # Seg Neutrophils # Man Monocytes # (Manual) PT INR Activated Clotting Time POC ABG pH POC ABG pCO2 POC ABG pO2 Sodium Potassium Chloride Carbon Dioxide BUN Creatinine Glucose POC Glucose 139 H Calcium Magnesium Direct Bilirubin AST 105 H ALT 204 H Alkaline Phosphatase 189 H Total Creatine Kinase CK-MB (CK-2) CK-MB (CK-2) Rel Index Troponin T C-Reactive Protein Total Protein Albumin 2.4 L Triglycerides Ur Specific [place] Urine WBC (Auto) Miscellaneous Test Flexitest 1 H 04/25/17 04/25/17 04/25/17 12:29 17:23 23:32 WBC RBC Hgb Hct MCV MCH Plt Count Lymph % (Auto) [place] % (Auto) Eos % (Auto) Baso % (Auto) Lymph # Baso # Seg Neutrophils % Lymphocytes % (Manual) Monocytes % (Manual) Nucleated RBC % Seg Neutrophils # Seg Neutrophils # Man Monocytes # (Manual) PT INR Activated Clotting Time POC ABG pH POC ABG pCO2 POC ABG pO2 Sodium Potassium Chloride Carbon Dioxide BUN Creatinine Glucose POC Glucose 132 H 133 H 128 H Calcium Magnesium Direct Bilirubin AST ALT Alkaline Phosphatase Total Creatine Kinase CK-MB (CK-2) CK-MB (CK-2) Rel Index Troponin T C-Reactive Protein Total Protein Albumin Triglycerides Ur Specific [place] Urine WBC (Auto) Miscellaneous Test 04/26/17 04/26/17 04/26/17 05:24 11:28 17:09 WBC RBC Hgb Hct MCV MCH Plt Count Lymph % (Auto) [place] % (Auto) Eos % (Auto) Baso % (Auto) Lymph # Baso # Seg Neutrophils % Lymphocytes % (Manual) Monocytes % (Manual) Nucleated RBC % Seg Neutrophils # Seg Neutrophils # Man Monocytes # (Manual) PT INR Activated Clotting Time POC ABG pH POC ABG pCO2 POC ABG pO2 Sodium Potassium Chloride Carbon Dioxide BUN Creatinine Glucose POC Glucose 132 H 146 H 141 H Calcium Magnesium Direct Bilirubin AST ALT Alkaline Phosphatase Total Creatine Kinase CK-MB (CK-2) CK-MB (CK-2) Rel Index Troponin T C-Reactive Protein Total Protein Albumin Triglycerides Ur Specific [place] Urine WBC (Auto) Miscellaneous Test 04/26/17 04/27/17 04/27/17 23:52 05:40 05:40 WBC RBC 3.22 L Hgb 10.0 L Hct 29.9 L MCV MCH Plt Count Lymph % (Auto) [place] % (Auto) Eos % (Auto) Baso % (Auto) Lymph # Baso # Seg Neutrophils % 76.6 H Lymphocytes % (Manual) Monocytes % (Manual) Nucleated RBC % Seg Neutrophils # Seg Neutrophils # Man Monocytes # (Manual) PT INR Activated Clotting Time POC ABG pH POC ABG pCO2 POC ABG pO2 Sodium Potassium Chloride Carbon Dioxide BUN Creatinine Glucose POC Glucose 140 H Calcium Magnesium Direct Bilirubin AST 66 H ALT 137 H Alkaline Phosphatase 169 H Total Creatine Kinase CK-MB (CK-2) CK-MB (CK-2) Rel Index Troponin T C-Reactive Protein Total Protein 6.2 L Albumin 2.6 L Triglycerides Ur Specific [place] Urine WBC (Auto) Miscellaneous Test 04/27/17 04/27/17 04/27/17 05:40 06:10 11:13 WBC RBC Hgb Hct MCV MCH Plt Count Lymph % (Auto) [place] % (Auto) Eos % (Auto) Baso % (Auto) Lymph # Baso # Seg Neutrophils % Lymphocytes % (Manual) Monocytes % (Manual) Nucleated RBC % Seg Neutrophils # Seg Neutrophils # Man Monocytes # (Manual) PT INR Activated Clotting Time POC ABG pH POC ABG pCO2 POC ABG pO2 Sodium Potassium Chloride Carbon Dioxide BUN Creatinine 0.2 L Glucose 139 H POC Glucose 130 H 151 H Calcium Magnesium Direct Bilirubin AST ALT Alkaline Phosphatase Total Creatine Kinase CK-MB (CK-2) CK-MB (CK-2) Rel Index Troponin T C-Reactive Protein Total Protein Albumin Triglycerides Ur Specific [place] Urine WBC (Auto) Miscellaneous Test 04/27/17 04/27/17 04/28/17 17:37 23:19 05:24 WBC RBC Hgb Hct MCV MCH Plt Count Lymph % (Auto) [place] % (Auto) Eos % (Auto) Baso % (Auto) Lymph # Baso # Seg Neutrophils % Lymphocytes % (Manual) Monocytes % (Manual) Nucleated RBC % Seg Neutrophils # Seg Neutrophils # Man Monocytes # (Manual) PT INR Activated Clotting Time POC ABG pH POC ABG pCO2 POC ABG pO2 Sodium Potassium Chloride Carbon Dioxide BUN Creatinine Glucose POC Glucose 159 H 130 H 132 H Calcium Magnesium Direct Bilirubin AST ALT Alkaline Phosphatase Total Creatine Kinase CK-MB (CK-2) CK-MB (CK-2) Rel Index Troponin T C-Reactive Protein Total Protein Albumin Triglycerides Ur Specific [place] Urine WBC (Auto) Miscellaneous Test 04/28/17 04/28/17 04/28/17 11:15 17:38 23:23 WBC RBC Hgb Hct MCV MCH Plt Count Lymph % (Auto) [place] % (Auto) Eos % (Auto) Baso % (Auto) Lymph # Baso # Seg Neutrophils % Lymphocytes % (Manual) Monocytes % (Manual) Nucleated RBC % Seg Neutrophils # Seg Neutrophils # Man Monocytes # (Manual) PT INR Activated Clotting Time POC ABG pH POC ABG pCO2 POC ABG pO2 Sodium Potassium Chloride Carbon Dioxide BUN Creatinine Glucose POC Glucose 162 H 133 H 138 H Calcium Magnesium Direct Bilirubin AST ALT Alkaline Phosphatase Total Creatine Kinase CK-MB (CK-2) CK-MB (CK-2) Rel Index Troponin T C-Reactive Protein Total Protein Albumin Triglycerides Ur Specific [place] Urine WBC (Auto) Miscellaneous Test 04/29/17 04/29/17 04/29/17 05:15 12:55 17:21 WBC RBC Hgb Hct MCV MCH Plt Count Lymph % (Auto) [place] % (Auto) Eos % (Auto) Baso % (Auto) Lymph # Baso # Seg Neutrophils % Lymphocytes % (Manual) Monocytes % (Manual) Nucleated RBC % Seg Neutrophils # Seg Neutrophils # Man Monocytes # (Manual) PT INR Activated Clotting Time POC ABG pH POC ABG pCO2 POC ABG pO2 Sodium Potassium Chloride Carbon Dioxide BUN Creatinine Glucose POC Glucose 135 H 127 H 138 H Calcium Magnesium Direct Bilirubin AST ALT Alkaline Phosphatase Total Creatine Kinase CK-MB (CK-2) CK-MB (CK-2) Rel Index Troponin T C-Reactive Protein Total Protein Albumin Triglycerides Ur Specific [place] Urine WBC (Auto) Miscellaneous Test 04/29/17 04/30/17 04/30/17 23:52 04:55 12:22 WBC RBC Hgb Hct MCV MCH Plt Count Lymph % (Auto) [place] % (Auto) Eos % (Auto) Baso % (Auto) Lymph # Baso # Seg Neutrophils % Lymphocytes % (Manual) Monocytes % (Manual) Nucleated RBC % Seg Neutrophils # Seg Neutrophils # Man Monocytes # (Manual) PT INR Activated Clotting Time POC ABG pH POC ABG pCO2 POC ABG pO2 Sodium Potassium Chloride Carbon Dioxide BUN Creatinine Glucose POC Glucose 142 H 146 H 132 H Calcium Magnesium Direct Bilirubin AST ALT Alkaline Phosphatase Total Creatine Kinase CK-MB (CK-2) CK-MB (CK-2) Rel Index Troponin T C-Reactive Protein Total Protein Albumin Triglycerides Ur Specific [place] Urine WBC (Auto) Miscellaneous Test 04/30/17 04/30/17 04/30/17 14:25 17:47 18:20 WBC RBC Hgb Hct MCV MCH Plt Count Lymph % (Auto) [place] % (Auto) Eos % (Auto) Baso % (Auto) Lymph # Baso # Seg Neutrophils % Lymphocytes % (Manual) Monocytes % (Manual) Nucleated RBC % Seg Neutrophils # Seg Neutrophils # Man Monocytes # (Manual) PT INR Activated Clotting Time POC ABG pH 7.551 H POC ABG pCO2 32.7 L POC ABG pO2 Sodium Potassium Chloride Carbon Dioxide BUN 21 H Creatinine 0.2 L Glucose 141 H POC Glucose 139 H Calcium Magnesium Direct Bilirubin AST ALT Alkaline Phosphatase Total Creatine Kinase CK-MB (CK-2) CK-MB (CK-2) Rel Index Troponin T C-Reactive Protein Total Protein Albumin Triglycerides Ur Specific [place] Urine WBC (Auto) Miscellaneous Test 05/01/17 05/01/17 05/01/17 01:26 05:30 05:30 WBC RBC 3.49 L Hgb 10.3 L Hct 31.9 L MCV MCH Plt Count Lymph % (Auto) [place] % (Auto) 8.1 H Eos % (Auto) Baso % (Auto) Lymph # Baso # Seg Neutrophils % 71.3 H Lymphocytes % (Manual) Monocytes % (Manual) Nucleated RBC % Seg Neutrophils # Seg Neutrophils # Man Monocytes # (Manual) PT INR Activated Clotting Time POC ABG pH POC ABG pCO2 POC ABG pO2 Sodium 136 L Potassium Chloride 97.6 L Carbon Dioxide BUN Creatinine 0.2 L Glucose 123 H POC Glucose 116 H Calcium Magnesium Direct Bilirubin AST 71 H ALT 125 H Alkaline Phosphatase 158 H Total Creatine Kinase CK-MB (CK-2) CK-MB (CK-2) Rel Index Troponin T C-Reactive Protein Total Protein Albumin 2.6 L Triglycerides Ur Specific [place] Urine WBC (Auto) Miscellaneous Test 05/01/17 05/01/17 05/02/17 11:59 17:23 00:08 WBC RBC Hgb Hct MCV MCH Plt Count Lymph % (Auto) [place] % (Auto) Eos % (Auto) Baso % (Auto) Lymph # Baso # Seg Neutrophils % Lymphocytes % (Manual) Monocytes % (Manual) Nucleated RBC % Seg Neutrophils # Seg Neutrophils # Man Monocytes # (Manual) PT INR Activated Clotting Time POC ABG pH POC ABG pCO2 POC ABG pO2 Sodium Potassium Chloride Carbon Dioxide BUN Creatinine Glucose POC Glucose 118 H 144 H 122 H Calcium Magnesium Direct Bilirubin AST ALT Alkaline Phosphatase Total Creatine Kinase CK-MB (CK-2) CK-MB (CK-2) Rel Index Troponin T C-Reactive Protein Total Protein Albumin Triglycerides Ur Specific [place] Urine WBC (Auto) Miscellaneous Test 05/02/17 05/02/17 05/02/17 05:50 11:21 17:48 WBC RBC Hgb Hct MCV MCH Plt Count Lymph % (Auto) [place] % (Auto) Eos % (Auto) Baso % (Auto) Lymph # Baso # Seg Neutrophils % Lymphocytes % (Manual) Monocytes % (Manual) Nucleated RBC % Seg Neutrophils # Seg Neutrophils # Man Monocytes # (Manual) PT INR Activated Clotting Time POC ABG pH POC ABG pCO2 POC ABG pO2 Sodium Potassium Chloride Carbon Dioxide BUN Creatinine Glucose POC Glucose 120 H 121 H 140 H Calcium Magnesium Direct Bilirubin AST ALT Alkaline Phosphatase Total Creatine Kinase CK-MB (CK-2) CK-MB (CK-2) Rel Index Troponin T C-Reactive Protein Total Protein Albumin Triglycerides Ur Specific [place] Urine WBC (Auto) Miscellaneous Test 05/02/17 05/03/17 05/03/17 23:12 05:35 11:52 WBC RBC Hgb Hct MCV MCH Plt Count Lymph % (Auto) [place] % (Auto) Eos % (Auto) Baso % (Auto) Lymph # Baso # Seg Neutrophils % Lymphocytes % (Manual) Monocytes % (Manual) Nucleated RBC % Seg Neutrophils # Seg Neutrophils # Man Monocytes # (Manual) PT INR Activated Clotting Time POC ABG pH POC ABG pCO2 POC ABG pO2 Sodium Potassium Chloride Carbon Dioxide BUN Creatinine Glucose POC Glucose 128 H 113 H 126 H Calcium Magnesium Direct Bilirubin AST ALT Alkaline Phosphatase Total Creatine Kinase CK-MB (CK-2) CK-MB (CK-2) Rel Index Troponin T C-Reactive Protein Total Protein Albumin Triglycerides Ur Specific [place] Urine WBC (Auto) Miscellaneous Test 05/03/17 05/03/17 05/04/17 17:29 23:26 04:55 WBC RBC Hgb Hct MCV MCH Plt Count Lymph % (Auto) [place] % (Auto) Eos % (Auto) Baso % (Auto) Lymph # Baso # Seg Neutrophils % Lymphocytes % (Manual) Monocytes % (Manual) Nucleated RBC % Seg Neutrophils # Seg Neutrophils # Man Monocytes # (Manual) PT INR Activated Clotting Time POC ABG pH POC ABG pCO2 POC ABG pO2 Sodium Potassium Chloride Carbon Dioxide BUN Creatinine Glucose POC Glucose 141 H 129 H 126 H Calcium Magnesium Direct Bilirubin AST ALT Alkaline Phosphatase Total Creatine Kinase CK-MB (CK-2) CK-MB (CK-2) Rel Index Troponin T C-Reactive Protein Total Protein Albumin Triglycerides Ur Specific [place] Urine WBC (Auto) Miscellaneous Test 05/04/17 05/04/17 05/05/17 12:09 17:46 00:06 WBC RBC Hgb Hct MCV MCH Plt Count Lymph % (Auto) [place] % (Auto) Eos % (Auto) Baso % (Auto) Lymph # Baso # Seg Neutrophils % Lymphocytes % (Manual) Monocytes % (Manual) Nucleated RBC % Seg Neutrophils # Seg Neutrophils # Man Monocytes # (Manual) PT INR Activated Clotting Time POC ABG pH POC ABG pCO2 POC ABG pO2 Sodium Potassium Chloride Carbon Dioxide BUN Creatinine Glucose POC Glucose 125 H 125 H 110 H Calcium Magnesium Direct Bilirubin AST ALT Alkaline Phosphatase Total Creatine Kinase CK-MB (CK-2) CK-MB (CK-2) Rel Index Troponin T C-Reactive Protein Total Protein Albumin Triglycerides Ur Specific [place] Urine WBC (Auto) Miscellaneous Test 05/05/17 05/05/17 05/05/17 05:48 11:41 16:19 WBC RBC Hgb Hct MCV MCH Plt Count Lymph % (Auto) [place] % (Auto) Eos % (Auto) Baso % (Auto) Lymph # Baso # Seg Neutrophils % Lymphocytes % (Manual) Monocytes % (Manual) Nucleated RBC % Seg Neutrophils # Seg Neutrophils # Man Monocytes # (Manual) PT INR Activated Clotting Time POC ABG pH POC ABG pCO2 POC ABG pO2 Sodium Potassium Chloride Carbon Dioxide BUN Creatinine Glucose POC Glucose 124 H 122 H 120 H Calcium Magnesium Direct Bilirubin AST ALT Alkaline Phosphatase Total Creatine Kinase CK-MB (CK-2) CK-MB (CK-2) Rel Index Troponin T C-Reactive Protein Total Protein Albumin Triglycerides Ur Specific [place] Urine WBC (Auto) Miscellaneous Test 05/06/17 05/06/17 05/06/17 00:16 05:47 11:42 WBC RBC Hgb Hct MCV MCH Plt Count Lymph % (Auto) [place] % (Auto) Eos % (Auto) Baso % (Auto) Lymph # Baso # Seg Neutrophils % Lymphocytes % (Manual) Monocytes % (Manual) Nucleated RBC % Seg Neutrophils # Seg Neutrophils # Man Monocytes # (Manual) PT INR Activated Clotting Time POC ABG pH POC ABG pCO2 POC ABG pO2 Sodium Potassium Chloride Carbon Dioxide BUN Creatinine Glucose POC Glucose 110 H 142 H 120 H Calcium Magnesium Direct Bilirubin AST ALT Alkaline Phosphatase Total Creatine Kinase CK-MB (CK-2) CK-MB (CK-2) Rel Index Troponin T C-Reactive Protein Total Protein Albumin Triglycerides Ur Specific [place] Urine WBC (Auto) Miscellaneous Test 05/06/17 05/07/17 05/07/17 17:46 00:07 05:28 WBC RBC Hgb Hct MCV MCH Plt Count Lymph % (Auto) [place] % (Auto) Eos % (Auto) Baso % (Auto) Lymph # Baso # Seg Neutrophils % Lymphocytes % (Manual) Monocytes % (Manual) Nucleated RBC % Seg Neutrophils # Seg Neutrophils # Man Monocytes # (Manual) PT INR Activated Clotting Time POC ABG pH POC ABG pCO2 POC ABG pO2 Sodium Potassium Chloride Carbon Dioxide BUN Creatinine Glucose POC Glucose 127 H 145 H 124 H Calcium Magnesium Direct Bilirubin AST ALT Alkaline Phosphatase Total Creatine Kinase CK-MB (CK-2) CK-MB (CK-2) Rel Index Troponin T C-Reactive Protein Total Protein Albumin Triglycerides Ur Specific [place] Urine WBC (Auto) Miscellaneous Test 05/07/17 05/07/17 05/08/17 11:17 17:14 00:03 WBC RBC Hgb Hct MCV MCH Plt Count Lymph % (Auto) [place] % (Auto) Eos % (Auto) Baso % (Auto) Lymph # Baso # Seg Neutrophils % Lymphocytes % (Manual) Monocytes % (Manual) Nucleated RBC % Seg Neutrophils # Seg Neutrophils # Man Monocytes # (Manual) PT INR Activated Clotting Time POC ABG pH POC ABG pCO2 POC ABG pO2 Sodium Potassium Chloride Carbon Dioxide BUN Creatinine Glucose POC Glucose 144 H 125 H 122 H Calcium Magnesium Direct Bilirubin AST ALT Alkaline Phosphatase Total Creatine Kinase CK-MB (CK-2) CK-MB (CK-2) Rel Index Troponin T C-Reactive Protein Total Protein Albumin Triglycerides Ur Specific [place] Urine WBC (Auto) Miscellaneous Test 05/08/17 05/08/17 05/08/17 05:43 12:07 18:02 WBC RBC Hgb Hct MCV MCH Plt Count Lymph % (Auto) [place] % (Auto) Eos % (Auto) Baso % (Auto) Lymph # Baso # Seg Neutrophils % Lymphocytes % (Manual) Monocytes % (Manual) Nucleated RBC % Seg Neutrophils # Seg Neutrophils # Man Monocytes # (Manual) PT INR Activated Clotting Time POC ABG pH POC ABG pCO2 POC ABG pO2 Sodium Potassium Chloride Carbon Dioxide BUN Creatinine Glucose POC Glucose 117 H 114 H 129 H Calcium Magnesium Direct Bilirubin AST ALT Alkaline Phosphatase Total Creatine Kinase CK-MB (CK-2) CK-MB (CK-2) Rel Index Troponin T C-Reactive Protein Total Protein Albumin Triglycerides Ur Specific [place] Urine WBC (Auto) Miscellaneous Test 05/08/17 05/09/17 05/09/17 23:53 04:19 05:14 WBC RBC Hgb Hct MCV MCH Plt Count Lymph % (Auto) [place] % (Auto) Eos % (Auto) Baso % (Auto) Lymph # Baso # Seg Neutrophils % Lymphocytes % (Manual) Monocytes % (Manual) Nucleated RBC % Seg Neutrophils # Seg Neutrophils # Man Monocytes # (Manual) PT INR Activated Clotting Time POC ABG pH 7.524 H POC ABG pCO2 34.7 L POC ABG pO2 107 H Sodium Potassium Chloride Carbon Dioxide BUN Creatinine Glucose POC Glucose 125 H 118 H Calcium Magnesium Direct Bilirubin AST ALT Alkaline Phosphatase Total Creatine Kinase CK-MB (CK-2) CK-MB (CK-2) Rel Index Troponin T C-Reactive Protein Total Protein Albumin Triglycerides Ur Specific [place] Urine WBC (Auto) Miscellaneous Test 05/10/17 05/11/17 05/11/17 23:54 05:48 23:50 WBC RBC Hgb Hct MCV MCH Plt Count Lymph % (Auto) [place] % (Auto) Eos % (Auto) Baso % (Auto) Lymph # Baso # Seg Neutrophils % Lymphocytes % (Manual) Monocytes % (Manual) Nucleated RBC % Seg Neutrophils # Seg Neutrophils # Man Monocytes # (Manual) PT INR Activated Clotting Time POC ABG pH POC ABG pCO2 POC ABG pO2 Sodium Potassium Chloride Carbon Dioxide BUN Creatinine Glucose POC Glucose 126 H 137 H 130 H Calcium Magnesium Direct Bilirubin AST ALT Alkaline Phosphatase Total Creatine Kinase CK-MB (CK-2) CK-MB (CK-2) Rel Index Troponin T C-Reactive Protein Total Protein Albumin Triglycerides Ur Specific [place] Urine WBC (Auto) Miscellaneous Test 05/12/17 05/12/17 05:48 11:33 WBC RBC Hgb Hct MCV MCH Plt Count Lymph % (Auto) [place] % (Auto) Eos % (Auto) Baso % (Auto) Lymph # Baso # Seg Neutrophils % Lymphocytes % (Manual) Monocytes % (Manual) Nucleated RBC % Seg Neutrophils # Seg Neutrophils # Man Monocytes # (Manual) PT INR Activated Clotting Time POC ABG pH POC ABG pCO2 POC ABG pO2 Sodium Potassium Chloride Carbon Dioxide BUN Creatinine Glucose POC Glucose 126 H 116 H Calcium Magnesium Direct Bilirubin AST ALT Alkaline Phosphatase Total Creatine Kinase CK-MB (CK-2) CK-MB (CK-2) Rel Index Troponin T C-Reactive Protein Total Protein Albumin Triglycerides Ur Specific [place] Urine WBC (Auto) Miscellaneous Test
--- NOTE | 2017-05-12 21:08 | Progress Note ---
Assessment and Plan Assessment and plan: -- acute hypoxic hypercapnic respiratory failure ; status post trach, vent dependent, on weaning parameters --s/p cardiac arrest /anoxic encephalopathy/vegetative state --Acute anterior STEMI; status post PCI, --MRSA pneumonia/aspiration pneumonia, contact isolation patient received full treatment with Zyvox --Hypertension; BP in the lower range. -- aspiration pneumonia; sepsis; received full course of antibiotics --Cardiogenic shock; off pressors, --s/p trach and PEG, continue PEG feeds --Severe Protein calorie malnutrition: Peg feeds and nutrition suppliments --DVT prophylaxis; Lovenox On the new on the current management --Full CODE STATUS Poor prognosis family aware Possible family meeting this week to discuss up or treatment plan Very difficult to place, secondary to social issues History Interval history: Clinically no change Tracheostomy on vent Unresponsive Vital signs reviewed Hospitalist Physical - Constitutional Vitals: Temp Pulse Resp BP Pulse Ox 98.8 F 81 22 94/60 100 05/12/17 16:00 05/12/17 20:18 05/12/17 18:00 05/12/17 20:18 05/12/17 20:32 General appearance: Present: no acute distress, well-nourished, other ( tracheostomy on vent) - EENT Eyes: Present: PERRL - Neck Neck: Present: supple - Respiratory Respiratory effort: normal Respiratory: bilateral: diminished, rhonchi - Cardiovascular Rhythm: regular Heart Sounds: Present: S1 & S2 - Extremities Extremities: no ischemia, No edema - Abdominal General gastrointestinal: soft, non-tender, non-distended, other (PEG tube place ) - Integumentary Integumentary: Present: clear, warm - Psychiatric Psychiatric: other (noncommunicative) - Neurologic Neurologic: other (non-communicative) Results - Labs CBC & Chem 7: 05/01/17 05:30 05/01/17 05:30 Labs: Laboratory Last Values WBC 7.8 K/mm3 (4.5-11.0) 05/01/17 05:30 RBC 3.49 M/mm3 (3.65-5.03) L 05/01/17 05:30 Hgb 10.3 gm/dl (11.8-15.2) L 05/01/17 05:30 Hct 31.9 % (35.5-45.6) L 05/01/17 05:30 MCV 92 fl (84-94) 05/01/17 05:30 MCH 30 pg (28-32) 05/01/17 05:30 MCHC 32 % (32-34) 05/01/17 05:30 RDW 15.1 % (13.2-15.2) 05/01/17 05:30 Plt Count 280 K/mm3 (140-440) 05/01/17 05:30 Lymph % (Auto) 17.7 % (13.4-35.0) 05/01/17 05:30 [place] % (Auto) 8.1 % (0.0-7.3) H 05/01/17 05:30 Eos % (Auto) 2.5 % (0.0-4.3) 05/01/17 05:30 Baso % (Auto) 0.4 % (0.0-1.8) 05/01/17 05:30 Lymph # 1.4 K/mm3 (1.2-5.4) 05/01/17 05:30 [place] # 0.6 K/mm3 (0.0-0.8) 05/01/17 05:30 Eos # 0.2 K/mm3 (0.0-0.4) 05/01/17 05:30 Baso # 0.0 K/mm3 (0.0-0.1) 05/01/17 05:30 Add Manual Diff Complete 03/30/17 03:50 Total Counted 100 03/30/17 03:50 Seg Neutrophils % 71.3 % (40.0-70.0) H 05/01/17 05:30 Seg Neuts % (Manual) 65.0 % (40.0-70.0) 03/30/17 03:50 Band Neutrophils % 17.0 % 03/30/17 03:50 Lymphocytes % (Manual) 7.0 % (13.4-35.0) L 03/30/17 03:50 Reactive Lymphs % (Man) 0 % 03/30/17 03:50 Monocytes % (Manual) 7.0 % (0.0-7.3) 03/30/17 03:50 Eosinophils % (Manual) 0 % (0.0-4.3) 03/30/17 03:50 Basophils % (Manual) 0 % (0.0-1.8) 03/30/17 03:50 Metamyelocytes % 4.0 % 03/30/17 03:50 Myelocytes % 0 % 03/30/17 03:50 Promyelocytes % 0 % 03/30/17 03:50 Blast Cells % 0 % 03/30/17 03:50 Nucleated RBC % Not Reportable 03/30/17 03:50 Seg Neutrophils # 5.6 K/mm3 (1.8-7.7) 05/01/17 05:30 Seg Neutrophils # Man 12.7 K/mm3 (1.8-7.7) H 03/30/17 03:50 Band Neutrophils # 3.3 K/mm3 03/30/17 03:50 Lymphocytes # (Manual) 1.4 K/mm3 (1.2-5.4) 03/30/17 03:50 Abs React Lymphs (Man) 0.0 K/mm3 03/30/17 03:50 Monocytes # (Manual) 1.4 K/mm3 (0.0-0.8) H 03/30/17 03:50 Eosinophils # (Manual) 0.0 K/mm3 (0.0-0.4) 03/30/17 03:50 Basophils # (Manual) 0.0 K/mm3 (0.0-0.1) 03/30/17 03:50 Metamyelocytes # 0.8 K/mm3 03/30/17 03:50 Myelocytes # 0.0 K/mm3 03/30/17 03:50 Promyelocytes # 0.0 K/mm3 03/30/17 03:50 Blast Cells # 0.0 K/mm3 03/30/17 03:50 WBC Morphology Not Reportable 03/30/17 03:50 Hypersegmented Neuts Not Reportable 03/30/17 03:50 Hyposegmented Neuts Not Reportable 03/30/17 03:50 Hypogranular Neuts Not Reportable 03/30/17 03:50 Smudge Cells Not Reportable 03/30/17 03:50 Toxic Granulation Not Reportable 03/30/17 03:50 Toxic Vacuolation Not Reportable 03/30/17 03:50 Dohle Bodies Not Reportable 03/30/17 03:50 Pelger-Huet Anomaly Not Reportable 03/30/17 03:50 Sherry Rods Not Reportable 03/30/17 03:50 Platelet Estimate Appears normal 03/30/17 03:50 Clumped Platelets Not Reportable 03/30/17 03:50 Plt Clumps, EDTA Not Reportable 03/30/17 03:50 Large Platelets Not Reportable 03/30/17 03:50 Giant Platelets Not Reportable 03/30/17 03:50 Platelet Satelliting Not Reportable 03/30/17 03:50 Plt Morphology Comment Not Reportable 03/30/17 03:50 RBC Morphology Not Reportable 03/30/17 03:50 Dimorphic RBCs Not Reportable 03/30/17 03:50 Polychromasia Not Reportable 03/30/17 03:50 Hypochromasia Not Reportable 03/30/17 03:50 Poikilocytosis Not Reportable 03/30/17 03:50 Anisocytosis Few 03/30/17 03:50 Microcytosis Not Reportable 03/30/17 03:50 Macrocytosis Not Reportable 03/30/17 03:50 Spherocytes Not Reportable 03/30/17 03:50 Pappenheimer Bodies Not Reportable 03/30/17 03:50 Sickle Cells Not Reportable 03/30/17 03:50 Target Cells Not Reportable 03/30/17 03:50 Tear Drop Cells Not Reportable 03/30/17 03:50 Ovalocytes Not Reportable 03/30/17 03:50 Helmet Cells Not Reportable 03/30/17 03:50 [place] Bodies Not Reportable 03/30/17 03:50 [place] Rings Not Reportable 03/30/17 03:50 [place] Cells Not Reportable 03/30/17 03:50 Bite Cells Not Reportable 03/30/17 03:50 Crenated Cell Not Reportable 03/30/17 03:50 Elliptocytes Not Reportable 03/30/17 03:50 Acanthocytes (Spur) Not Reportable 03/30/17 03:50 Rouleaux Not Reportable 03/30/17 03:50 Hemoglobin C Crystals Not Reportable 03/30/17 03:50 Schistocytes Not Reportable 03/30/17 03:50 Malaria parasites Not Reportable 03/30/17 03:50 [place] Bodies Not Reportable 03/30/17 03:50 Hem Pathologist Commnt No 03/30/17 03:50 PT 14.9 Sec. (12.2-14.9) 04/10/17 04:16 INR 1.11 (0.87-1.13) 04/10/17 04:16 APTT 27.8 Sec. (24.2-36.6) 04/10/17 04:16 Activated Clotting Time 92 (74-137) 03/29/17 17:47 POC ABG pH 7.524 (7.35-7.45) H 05/09/17 04:19 POC ABG pCO2 34.7 (35-45) L 05/09/17 04:19 POC ABG pO2 107 (80-105) H 05/09/17 04:19 POC ABG HCO3 28.6 05/09/17 04:19 POC ABG Total CO2 30 05/09/17 04:19 POC ABG O2 Sat 99 05/09/17 04:19 POC ABG Base Excess 6 05/09/17 04:19 FiO2 25 % 05/09/17 04:19 Sodium 136 mmol/L (137-145) L 05/01/17 05:30 Potassium 3.9 mmol/L (3.6-5.0) 05/01/17 05:30 Chloride 97.6 mmol/L (98-107) L 05/01/17 05:30 Carbon Dioxide 25 mmol/L (22-30) 05/01/17 05:30 Anion Gap 17 mmol/L 05/01/17 05:30 BUN 16 mg/dL (9-20) 05/01/17 05:30 Creatinine 0.2 mg/dL (0.8-1.5) L 05/01/17 05:30 Estimated GFR > 60 ml/min 05/01/17 05:30 BUN/Creatinine Ratio 80 % 05/01/17 05:30 Glucose 123 mg/dL (75-100) H 05/01/17 05:30 POC Glucose 131 (70-105) H 05/12/17 18:00 Calcium 8.9 mg/dL (8.4-10.2) 05/01/17 05:30 Phosphorus 3.50 mg/dL (2.5-4.5) 04/13/17 04:45 Magnesium 1.80 mg/dL (1.7-2.3) 05/01/17 05:30 Total Bilirubin 0.60 mg/dL (0.1-1.2) 05/01/17 05:30 Direct Bilirubin < 0.2 mg/dL (0-0.2) 04/27/17 05:40 Indirect Bilirubin 0.3 mg/dL 04/25/17 04:51 AST 71 units/L (5-40) H 05/01/17 05:30 ALT 125 units/L (7-56) H 05/01/17 05:30 Alkaline Phosphatase 158 units/L (35-129) H 05/01/17 05:30 Total Creatine Kinase 1404 units/L (55-170) H 04/12/17 21:36 CK-MB (CK-2) 8.0 ng/mL (0.0-4.0) H 04/12/17 21:36 CK-MB (CK-2) Rel Index 0.5 (0-4) 04/12/17 21:36 Troponin T 0.767 ng/mL (0.00-0.029) H* 04/12/17 21:36 C-Reactive Protein 21.80 mg/dL (0.00-1.30) H 03/30/17 16:04 Total Protein 6.7 g/dL (6.3-8.2) 05/01/17 05:30 Albumin 2.6 g/dL (3.9-5) L 05/01/17 05:30 Albumin/Globulin Ratio 0.6 % 05/01/17 05:30 Triglycerides 151 mg/dL (2-149) H 04/01/17 04:29 Cholesterol 164 mg/dL (50-199) 03/29/17 19:52 LDL Cholesterol Direct 81 mg/dL (50-130) 03/29/17 19:52 HDL Cholesterol 44 mg/dL (40-59) 03/29/17 19:52 Cholesterol/HDL Ratio 3.72 % 03/29/17 19:52 Urine Color [place] (Yellow) 04/21/17 22:00 Urine Turbidity Clear (Clear) 04/21/17 22:00 Urine pH 5.0 (5.0-7.0) 04/21/17 22:00 Ur Specific [place] 1.029 (1.003-1.030) 04/21/17 22:00 Urine Protein 30 mg/dl mg/dL (Negative) 04/21/17 22:00 Urine Glucose (UA) Neg mg/dL (Negative) 04/21/17 22:00 Urine Ketones Neg mg/dL (Negative) 04/21/17 22:00 Urine Blood Mod (Negative) 04/21/17 22:00 Urine Nitrite Neg (Negative) 04/21/17 22:00 Urine Bilirubin Neg (Negative) 04/21/17 22:00 Urine Urobilinogen 4.0 mg/dL (<2.0) 04/21/17 22:00 Ur Leukocyte Esterase Neg (Negative) 04/21/17 22:00 Urine WBC (Auto) 10.0 /HPF (0.0-6.0) H 04/21/17 22:00 Urine RBC (Auto) 44.0 /HPF (0.0-6.0) 04/21/17 22:00 U Epithel Cells (Auto) < 1.0 /HPF (0-13.0) 04/21/17 22:00 Amorphous Crystals 1+ 03/30/17 09:45 Urine Mucus 3+ /HPF 04/21/17 22:00 Urine Opiates Screen Presumptive negative 03/30/17 09:45 Urine Methadone Screen Presumptive negative 03/30/17 09:45 Ur Barbiturates Screen Presumptive negative 03/30/17 09:45 Ur Phencyclidine Scrn Presumptive negative 03/30/17 09:45 Ur Amphetamines Screen Presumptive positive 03/30/17 09:45 U Benzodiazepines Scrn Presumptive positive 03/30/17 09:45 Urine Cocaine Screen Presumptive negative 03/30/17 09:45 U Marijuana (THC) Screen Presumptive negative 03/30/17 09:45 Drugs of Abuse Note Disclamer 03/30/17 09:45 Miscellaneous Test Flexitest 1 H 04/25/17 07:07 Blood Type O POSITIVE 03/29/17 11:35 Antibody Screen Negative 03/29/17 11:35
[2017-05-13] MEDS: CORDARONE PO SCH ×2 (09:52→21:58)
[2017-05-13] MEDS: ASPIRIN PO SCH (09:52)
[2017-05-13] MEDS: PLAVIX PO SCH (09:52)
[2017-05-13] MEDS: ELIQUIS PO SCH ×2 (09:53→21:57)
[2017-05-13] MEDS: PROTONIX FEEDTUBE SCH (09:53)
[2017-05-13] MEDS: LOPRESSOR PO SCH ×2 (10:04→21:58)
[2017-05-13] MEDS: ZESTRIL PO SCH (10:04)
--- NOTE | 2017-05-13 10:40 | Event Note ---
Date: 05/13/17 Long discussion with 2 of patients sisters and one brother. They have strong belief that the patient will wake up and will improve. The neurologist was also present who explained to them that the likelyhood of him waking up with zero. I also explained that the patient has spells of apnea and periods where he cannot tolerated spontaneous breathing trials so that him eventually coming off the ventilator would be difficult as well. When asked about code status, they wish that we continue him to be a full code, knowing that those measures will only create more harm and will not improve his current mental state. They express understanding and hold steadfast as they have had several other family members in the same situation. Will continue current level of support and attempt daily vent weaning.
--- NOTE | 2017-05-13 20:13 | Progress Note ---
Assessment and Plan Assessment and plan: --s/p cardiac arrest /anoxic encephalopathy/vegetative state -- acute hypoxic hypercapnic respiratory failure ; status post trach, vent dependent, --Acute anterior STEMI; status post PCI, --MRSA pneumonia/aspiration pneumonia, s/p full treatment, contact isolation --Hypertension; BP in the lower range. -- aspiration pneumonia; sepsis; received full course of antibiotics --Cardiogenic shock; off pressors, --s/p trach and PEG, continue PEG feeds --Severe Protein calorie malnutrition: Peg feeds and nutrition suppliments --DVT prophylaxis; Lovenox On the new on the current management --Full CODE STATUS Poor prognosis family aware, Had family meeting this morning with the oceanographer geological and neurology Family has unrealistic expectations , requests to continue full CODE STATUS DC planning ; placement of LTAC versus SNF Very difficult to place, secondary to social issues History Interval history: Patient seen and examined, medical records reviewed Director Safety Council and neurologist had family meeting to discuss the poor prognosis and plan of care Family has unrealistic expectations and want full CODE STATUS. Patient remains on vent with tracheostomy Unresponsive Vital signs reviewed Hospitalist Physical - Constitutional Vitals: Temp Pulse Resp BP Pulse Ox 98.6 F 91 H 26 H 101/60 100 05/13/17 16:00 05/13/17 19:28 05/13/17 17:30 05/13/17 19:28 05/13/17 19:28 General appearance: Present: no acute distress, well-nourished, other ( tracheostomy on vent) - Neck Neck: Present: supple, other (tracheostomy) - Respiratory Respiratory effort: normal Respiratory: bilateral: diminished, rhonchi, negative: wheezing - Cardiovascular Rhythm: regular Heart Sounds: Present: S1 & S2 - Extremities Extremities: no ischemia, No edema - Abdominal General gastrointestinal: soft, non-distended, normal bowel sounds, other (PEG tube in place) - Integumentary Integumentary: Present: clear, warm - Psychiatric Psychiatric: other (noncommunicative) - Neurologic Neurologic: other (noncommunicative) Results - Labs CBC & Chem 7: 05/01/17 05:30 05/01/17 05:30 Labs: Laboratory Last Values WBC 7.8 K/mm3 (4.5-11.0) 05/01/17 05:30 RBC 3.49 M/mm3 (3.65-5.03) L 05/01/17 05:30 Hgb 10.3 gm/dl (11.8-15.2) L 05/01/17 05:30 Hct 31.9 % (35.5-45.6) L 05/01/17 05:30 MCV 92 fl (84-94) 05/01/17 05:30 MCH 30 pg (28-32) 05/01/17 05:30 MCHC 32 % (32-34) 05/01/17 05:30 RDW 15.1 % (13.2-15.2) 05/01/17 05:30 Plt Count 280 K/mm3 (140-440) 05/01/17 05:30 Lymph % (Auto) 17.7 % (13.4-35.0) 05/01/17 05:30 [place] % (Auto) 8.1 % (0.0-7.3) H 05/01/17 05:30 Eos % (Auto) 2.5 % (0.0-4.3) 05/01/17 05:30 Baso % (Auto) 0.4 % (0.0-1.8) 05/01/17 05:30 Lymph # 1.4 K/mm3 (1.2-5.4) 05/01/17 05:30 [place] # 0.6 K/mm3 (0.0-0.8) 05/01/17 05:30 Eos # 0.2 K/mm3 (0.0-0.4) 05/01/17 05:30 Baso # 0.0 K/mm3 (0.0-0.1) 05/01/17 05:30 Add Manual Diff Complete 03/30/17 03:50 Total Counted 100 03/30/17 03:50 Seg Neutrophils % 71.3 % (40.0-70.0) H 05/01/17 05:30 Seg Neuts % (Manual) 65.0 % (40.0-70.0) 03/30/17 03:50 Band Neutrophils % 17.0 % 03/30/17 03:50 Lymphocytes % (Manual) 7.0 % (13.4-35.0) L 03/30/17 03:50 Reactive Lymphs % (Man) 0 % 03/30/17 03:50 Monocytes % (Manual) 7.0 % (0.0-7.3) 03/30/17 03:50 Eosinophils % (Manual) 0 % (0.0-4.3) 03/30/17 03:50 Basophils % (Manual) 0 % (0.0-1.8) 03/30/17 03:50 Metamyelocytes % 4.0 % 03/30/17 03:50 Myelocytes % 0 % 03/30/17 03:50 Promyelocytes % 0 % 03/30/17 03:50 Blast Cells % 0 % 03/30/17 03:50 Nucleated RBC % Not Reportable 03/30/17 03:50 Seg Neutrophils # 5.6 K/mm3 (1.8-7.7) 05/01/17 05:30 Seg Neutrophils # Man 12.7 K/mm3 (1.8-7.7) H 03/30/17 03:50 Band Neutrophils # 3.3 K/mm3 03/30/17 03:50 Lymphocytes # (Manual) 1.4 K/mm3 (1.2-5.4) 03/30/17 03:50 Abs React Lymphs (Man) 0.0 K/mm3 03/30/17 03:50 Monocytes # (Manual) 1.4 K/mm3 (0.0-0.8) H 03/30/17 03:50 Eosinophils # (Manual) 0.0 K/mm3 (0.0-0.4) 03/30/17 03:50 Basophils # (Manual) 0.0 K/mm3 (0.0-0.1) 03/30/17 03:50 Metamyelocytes # 0.8 K/mm3 03/30/17 03:50 Myelocytes # 0.0 K/mm3 03/30/17 03:50 Promyelocytes # 0.0 K/mm3 03/30/17 03:50 Blast Cells # 0.0 K/mm3 03/30/17 03:50 WBC Morphology Not Reportable 03/30/17 03:50 Hypersegmented Neuts Not Reportable 03/30/17 03:50 Hyposegmented Neuts Not Reportable 03/30/17 03:50 Hypogranular Neuts Not Reportable 03/30/17 03:50 Smudge Cells Not Reportable 03/30/17 03:50 Toxic Granulation Not Reportable 03/30/17 03:50 Toxic Vacuolation Not Reportable 03/30/17 03:50 Dohle Bodies Not Reportable 03/30/17 03:50 Pelger-Huet Anomaly Not Reportable 03/30/17 03:50 Sherry Rods Not Reportable 03/30/17 03:50 Platelet Estimate Appears normal 03/30/17 03:50 Clumped Platelets Not Reportable 03/30/17 03:50 Plt Clumps, EDTA Not Reportable 03/30/17 03:50 Large Platelets Not Reportable 03/30/17 03:50 Giant Platelets Not Reportable 03/30/17 03:50 Platelet Satelliting Not Reportable 03/30/17 03:50 Plt Morphology Comment Not Reportable 03/30/17 03:50 RBC Morphology Not Reportable 03/30/17 03:50 Dimorphic RBCs Not Reportable 03/30/17 03:50 Polychromasia Not Reportable 03/30/17 03:50 Hypochromasia Not Reportable 03/30/17 03:50 Poikilocytosis Not Reportable 03/30/17 03:50 Anisocytosis Few 03/30/17 03:50 Microcytosis Not Reportable 03/30/17 03:50 Macrocytosis Not Reportable 03/30/17 03:50 Spherocytes Not Reportable 03/30/17 03:50 Pappenheimer Bodies Not Reportable 03/30/17 03:50 Sickle Cells Not Reportable 03/30/17 03:50 Target Cells Not Reportable 03/30/17 03:50 Tear Drop Cells Not Reportable 03/30/17 03:50 Ovalocytes Not Reportable 03/30/17 03:50 Helmet Cells Not Reportable 03/30/17 03:50 [place] Bodies Not Reportable 03/30/17 03:50 [place] Rings Not Reportable 03/30/17 03:50 [place] Cells Not Reportable 03/30/17 03:50 Bite Cells Not Reportable 03/30/17 03:50 Crenated Cell Not Reportable 03/30/17 03:50 Elliptocytes Not Reportable 03/30/17 03:50 Acanthocytes (Spur) Not Reportable 03/30/17 03:50 Rouleaux Not Reportable 03/30/17 03:50 Hemoglobin C Crystals Not Reportable 03/30/17 03:50 Schistocytes Not Reportable 03/30/17 03:50 Malaria parasites Not Reportable 03/30/17 03:50 Jermaine Bodies Not Reportable 03/30/17 03:50 Hem Pathologist Commnt No 03/30/17 03:50 PT 14.9 Sec. (12.2-14.9) 04/10/17 04:16 INR 1.11 (0.87-1.13) 04/10/17 04:16 APTT 27.8 Sec. (24.2-36.6) 04/10/17 04:16 Activated Clotting Time 92 (74-137) 03/29/17 17:47 POC ABG pH 7.524 (7.35-7.45) H 05/09/17 04:19 POC ABG pCO2 34.7 (35-45) L 05/09/17 04:19 POC ABG pO2 107 (80-105) H 05/09/17 04:19 POC ABG HCO3 28.6 05/09/17 04:19 POC ABG Total CO2 30 05/09/17 04:19 POC ABG O2 Sat 99 05/09/17 04:19 POC ABG Base Excess 6 05/09/17 04:19 FiO2 25 % 05/09/17 04:19 Sodium 136 mmol/L (137-145) L 05/01/17 05:30 Potassium 3.9 mmol/L (3.6-5.0) 05/01/17 05:30 Chloride 97.6 mmol/L (98-107) L 05/01/17 05:30 Carbon Dioxide 25 mmol/L (22-30) 05/01/17 05:30 Anion Gap 17 mmol/L 05/01/17 05:30 BUN 16 mg/dL (9-20) 05/01/17 05:30 Creatinine 0.2 mg/dL (0.8-1.5) L 05/01/17 05:30 Estimated GFR > 60 ml/min 05/01/17 05:30 BUN/Creatinine Ratio 80 % 05/01/17 05:30 Glucose 123 mg/dL (75-100) H 05/01/17 05:30 POC Glucose 131 (70-105) H 05/12/17 18:00 Calcium 8.9 mg/dL (8.4-10.2) 05/01/17 05:30 Phosphorus 3.50 mg/dL (2.5-4.5) 04/13/17 04:45 Magnesium 1.80 mg/dL (1.7-2.3) 05/01/17 05:30 Total Bilirubin 0.60 mg/dL (0.1-1.2) 05/01/17 05:30 Direct Bilirubin < 0.2 mg/dL (0-0.2) 04/27/17 05:40 Indirect Bilirubin 0.3 mg/dL 04/25/17 04:51 AST 71 units/L (5-40) H 05/01/17 05:30 ALT 125 units/L (7-56) H 05/01/17 05:30 Alkaline Phosphatase 158 units/L (35-129) H 05/01/17 05:30 Total Creatine Kinase 1404 units/L (55-170) H 04/12/17 21:36 CK-MB (CK-2) 8.0 ng/mL (0.0-4.0) H 04/12/17 21:36 CK-MB (CK-2) Rel Index 0.5 (0-4) 04/12/17 21:36 Troponin T 0.767 ng/mL (0.00-0.029) H* 04/12/17 21:36 C-Reactive Protein 21.80 mg/dL (0.00-1.30) H 03/30/17 16:04 Total Protein 6.7 g/dL (6.3-8.2) 05/01/17 05:30 Albumin 2.6 g/dL (3.9-5) L 05/01/17 05:30 Albumin/Globulin Ratio 0.6 % 05/01/17 05:30 Triglycerides 151 mg/dL (2-149) H 04/01/17 04:29 Cholesterol 164 mg/dL (50-199) 03/29/17 19:52 LDL Cholesterol Direct 81 mg/dL (50-130) 03/29/17 19:52 HDL Cholesterol 44 mg/dL (40-59) 03/29/17 19:52 Cholesterol/HDL Ratio 3.72 % 03/29/17 19:52 Urine Color [place] (Yellow) 04/21/17 22:00 Urine Turbidity Clear (Clear) 04/21/17 22:00 Urine pH 5.0 (5.0-7.0) 04/21/17 22:00 Ur Specific [place] 1.029 (1.003-1.030) 04/21/17 22:00 Urine Protein 30 mg/dl mg/dL (Negative) 04/21/17 22:00 Urine Glucose (UA) Neg mg/dL (Negative) 04/21/17 22:00 Urine Ketones Neg mg/dL (Negative) 04/21/17 22:00 Urine Blood Mod (Negative) 04/21/17 22:00 Urine Nitrite Neg (Negative) 04/21/17 22:00 Urine Bilirubin Neg (Negative) 04/21/17 22:00 Urine Urobilinogen 4.0 mg/dL (<2.0) 04/21/17 22:00 Ur Leukocyte Esterase Neg (Negative) 04/21/17 22:00 Urine WBC (Auto) 10.0 /HPF (0.0-6.0) H 04/21/17 22:00 Urine RBC (Auto) 44.0 /HPF (0.0-6.0) 04/21/17 22:00 U Epithel Cells (Auto) < 1.0 /HPF (0-13.0) 04/21/17 22:00 Amorphous Crystals 1+ 03/30/17 09:45 Urine Mucus 3+ /HPF 04/21/17 22:00 Urine Opiates Screen Presumptive negative 03/30/17 09:45 Urine Methadone Screen Presumptive negative 03/30/17 09:45 Ur Barbiturates Screen Presumptive negative 03/30/17 09:45 Ur Phencyclidine Scrn Presumptive negative 03/30/17 09:45 Ur Amphetamines Screen Presumptive positive 03/30/17 09:45 U Benzodiazepines Scrn Presumptive positive 03/30/17 09:45 Urine Cocaine Screen Presumptive negative 03/30/17 09:45 U Marijuana (THC) Screen Presumptive negative 03/30/17 09:45 Drugs of Abuse Note Disclamer 03/30/17 09:45 Miscellaneous Test Flexitest 1 H 04/25/17 07:07 Blood Type O POSITIVE 03/29/17 11:35 Antibody Screen Negative 03/29/17 11:35
[2017-05-14] MEDS: CORDARONE PO SCH ×2 (10:31→23:05)
[2017-05-14] MEDS: ASPIRIN PO SCH (10:31)
[2017-05-14] MEDS: PROTONIX FEEDTUBE SCH (10:31)
[2017-05-14] MEDS: PLAVIX PO SCH (10:32)
[2017-05-14] MEDS: ELIQUIS PO SCH ×2 (10:32→23:04)
[2017-05-14] MEDS: LOPRESSOR PO SCH (10:33)
[2017-05-14] MEDS: ZESTRIL PO SCH (10:33)
--- NOTE | 2017-05-14 11:55 | Progress Note ---
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 No new recommendations for today. Patient remains full code and will continue PSV as tolerated with hopes of weaning to T-piece 1. PSV as tolerated with a goal to get to T-piece 2. Once tolerates T-piece for 24 hours, can consider transfer to floor 3. reviewed neurology note and agree with assessment 4. Continue all other cardiac meds 5. Overall prognosis still remains poor given amount of downtime during arrest. 6. Still need to have family meeting with neurology present to explain current findings. Patient should at least be a DNR if family wants to continue aggressive care. Given his current cardiac issues and mental state, coding him would not improve any outcomes. CCT 31 minutes. Subjective Date of service: 05/14/17 Principal diagnosis: coma,ARV,s/p arrest Interval history: No acute events. Mental status is the same. Objective Vital Signs - 12hr 05/13/17 05/14/17 05/14/17 23:56 00:00 00:30 Temperature 99.1 F Pulse Rate 80 75 Pulse Rate [ 78 From Monitor] Respiratory 16 17 Rate Blood Pressure 95/60 97/52 O2 Sat by Pulse 100 99 Oximetry O2 Sat by Pulse 100 Oximetry [ Assessment] 05/14/17 05/14/17 05/14/17 01:00 01:30 02:00 Temperature Pulse Rate 81 78 79 Pulse Rate [ From Monitor] Respiratory 13 16 18 Rate Blood Pressure 96/63 102/62 98/60 O2 Sat by Pulse 99 99 Oximetry O2 Sat by Pulse Oximetry [ Assessment] 05/14/17 05/14/17 05/14/17 02:30 03:00 03:30 Temperature Pulse Rate 89 83 85 Pulse Rate [ From Monitor] Respiratory 16 18 21 Rate Blood Pressure 98/78 96/60 100/63 O2 Sat by Pulse 85 96 97 Oximetry O2 Sat by Pulse Oximetry [ Assessment] 05/14/17 05/14/17 05/14/17 04:00 04:30 05:00 Temperature 98.6 F Pulse Rate 83 84 78 Pulse Rate [ 83 From Monitor] Respiratory 18 17 18 Rate Blood Pressure 101/67 96/59 86/49 O2 Sat by Pulse 99 Oximetry O2 Sat by Pulse Oximetry [ Assessment] 05/14/17 05/14/17 05/14/17 05:30 06:00 06:03 Temperature Pulse Rate 83 82 83 Pulse Rate [ From Monitor] Respiratory 19 18 19 Rate Blood Pressure 94/59 95/52 95/52 O2 Sat by Pulse 94 96 Oximetry O2 Sat by Pulse Oximetry [ Assessment] 05/14/17 05/14/17 05/14/17 06:30 07:00 07:12 Temperature Pulse Rate 78 81 78 Pulse Rate [ From Monitor] Respiratory 18 20 Rate Blood Pressure 94/57 87/51 87/51 O2 Sat by Pulse 95 96 96 Oximetry O2 Sat by Pulse Oximetry [ Assessment] 05/14/17 05/14/17 05/14/17 07:30 08:00 08:30 Temperature 98.3 F Pulse Rate 81 81 80 Pulse Rate [ 77 From Monitor] Respiratory 17 20 20 Rate Blood Pressure 94/57 94/53 94/57 O2 Sat by Pulse 93 95 98 Oximetry O2 Sat by Pulse Oximetry [ Assessment] 05/14/17 05/14/17 05/14/17 09:00 09:30 10:00 Temperature Pulse Rate 74 87 80 Pulse Rate [ From Monitor] Respiratory 19 32 H 20 Rate Blood Pressure 94/52 103/73 91/52 O2 Sat by Pulse 100 98 98 Oximetry O2 Sat by Pulse Oximetry [ Assessment] 05/14/17 05/14/17 05/14/17 10:30 10:33 10:38 Temperature Pulse Rate 83 80 81 Pulse Rate [ From Monitor] Respiratory 20 Rate Blood Pressure 94/56 91/52 94/56 O2 Sat by Pulse 98 100 Oximetry O2 Sat by Pulse Oximetry [ Assessment] 05/14/17 05/14/17 11:00 11:30 Temperature Pulse Rate 77 70 Pulse Rate [ From Monitor] Respiratory 21 18 Rate Blood Pressure 93/49 83/48 O2 Sat by Pulse Oximetry O2 Sat by Pulse Oximetry [ Assessment] Constitutional: no acute distress, comatose Eyes: non-icteric ENT: oropharynx moist Neck: supple, no JVD, other (tracheotomy ) Effort: normal Ascultation: Bilateral: clear, diminished breath sounds, other (coarse BS bilaterally) Percussion: Bilateral: not dull Cardiovascular: regular rate and rhythm Gastrointestinal: normoactive bowel sounds, soft, non-tender, non-distended Integumentary: normal Extremities: no cyanosis, no edema, pink and warm Neurologic: unable to assess Psychiatric: other (eyes open spontaneously but does not follow any voice commands, otherwise nonresponsive except for pain) CBC and BMP: 05/01/17 05:30 05/01/17 05:30 ABG, PT/INR, D-dimer: ABG POC ABG pH 7.524 (7.35-7.45) H 05/09/17 04:19 POC ABG pCO2 34.7 (35-45) L 05/09/17 04:19 POC ABG pO2 107 (80-105) H 05/09/17 04:19 POC ABG HCO3 28.6 05/09/17 04:19 POC ABG Total CO2 30 05/09/17 04:19 POC ABG O2 Sat 99 05/09/17 04:19 PT/INR, D-dimer PT 14.9 Sec. (12.2-14.9) 04/10/17 04:16 INR 1.11 (0.87-1.13) 04/10/17 04:16 Abnormal lab findings: Abnormal Labs 03/29/17 03/29/17 03/29/17 11:35 11:35 11:40 WBC RBC Hgb Hct MCV 98 H MCH 33 H Plt Count Lymph % (Auto) [place] % (Auto) Eos % (Auto) Baso % (Auto) Lymph # Baso # Seg Neutrophils % Lymphocytes % (Manual) Monocytes % (Manual) 9.0 H Nucleated RBC % 1.0 H Seg Neutrophils # Seg Neutrophils # Man Monocytes # (Manual) 0.9 H PT 15.8 H INR 1.20 H Activated Clotting Time POC ABG pH POC ABG pCO2 POC ABG pO2 Sodium Potassium 2.7 L* Chloride 95.3 L Carbon Dioxide 17 L BUN Creatinine Glucose 435 H POC Glucose Calcium Magnesium Direct Bilirubin AST ALT Alkaline Phosphatase Total Creatine Kinase CK-MB (CK-2) CK-MB (CK-2) Rel Index Troponin T C-Reactive Protein Total Protein 6.1 L Albumin 3.5 L Triglycerides Ur Specific [place] Urine WBC (Auto) Miscellaneous Test 03/29/17 03/29/17 03/29/17 12:34 13:10 13:25 WBC RBC Hgb Hct MCV MCH Plt Count Lymph % (Auto) [place] % (Auto) Eos % (Auto) Baso % (Auto) Lymph # Baso # Seg Neutrophils % Lymphocytes % (Manual) Monocytes % (Manual) Nucleated RBC % Seg Neutrophils # Seg Neutrophils # Man Monocytes # (Manual) PT INR Activated Clotting Time 142 H 169 H 175 H POC ABG pH POC ABG pCO2 POC ABG pO2 Sodium Potassium Chloride Carbon Dioxide BUN Creatinine Glucose POC Glucose Calcium Magnesium Direct Bilirubin AST ALT Alkaline Phosphatase Total Creatine Kinase CK-MB (CK-2) CK-MB (CK-2) Rel Index Troponin T C-Reactive Protein Total Protein Albumin Triglycerides Ur Specific [place] Urine WBC (Auto) Miscellaneous Test 03/29/17 03/29/17 03/29/17 14:50 15:18 19:52 WBC RBC Hgb Hct MCV MCH Plt Count Lymph % (Auto) [place] % (Auto) Eos % (Auto) Baso % (Auto) Lymph # Baso # Seg Neutrophils % Lymphocytes % (Manual) Monocytes % (Manual) Nucleated RBC % Seg Neutrophils # Seg Neutrophils # Man Monocytes # (Manual) PT INR Activated Clotting Time 175 H POC ABG pH 7.293 L POC ABG pCO2 POC ABG pO2 602 H Sodium Potassium Chloride Carbon Dioxide BUN Creatinine Glucose POC Glucose Calcium Magnesium Direct Bilirubin AST ALT Alkaline Phosphatase Total Creatine Kinase 7263 H CK-MB (CK-2) > 300.0 H CK-MB (CK-2) Rel Index 4.1 H Troponin T 8.080 H* D C-Reactive Protein Total Protein Albumin Triglycerides 195 H Ur Specific [place] Urine WBC (Auto) Miscellaneous Test 03/30/17 03/30/17 03/30/17 03:50 03:50 06:19 WBC 19.5 H RBC Hgb Hct MCV MCH Plt Count Lymph % (Auto) [place] % (Auto) Eos % (Auto) Baso % (Auto) Lymph # Baso # Seg Neutrophils % Lymphocytes % (Manual) 7.0 L Monocytes % (Manual) Nucleated RBC % Seg Neutrophils # Seg Neutrophils # Man 12.7 H Monocytes # (Manual) 1.4 H PT INR Activated Clotting Time POC ABG pH POC ABG pCO2 28.2 L POC ABG pO2 108 H Sodium Potassium Chloride 108.9 H Carbon Dioxide 15 L BUN 25 H Creatinine Glucose 158 H POC Glucose Calcium 8.1 L Magnesium Direct Bilirubin AST ALT Alkaline Phosphatase Total Creatine Kinase 7963 H CK-MB (CK-2) > 300.0 H CK-MB (CK-2) Rel Index Troponin T 6.850 H* C-Reactive Protein Total Protein Albumin Triglycerides Ur Specific [place] Urine WBC (Auto) Miscellaneous Test 03/30/17 03/30/17 03/31/17 09:45 16:04 02:19 WBC RBC Hgb Hct MCV MCH Plt Count Lymph % (Auto) [place] % (Auto) Eos % (Auto) Baso % (Auto) Lymph # Baso # Seg Neutrophils % Lymphocytes % (Manual) Monocytes % (Manual) Nucleated RBC % Seg Neutrophils # Seg Neutrophils # Man Monocytes # (Manual) PT INR Activated Clotting Time POC ABG pH POC ABG pCO2 POC ABG pO2 Sodium Potassium Chloride Carbon Dioxide BUN Creatinine Glucose POC Glucose 137 H Calcium Magnesium Direct Bilirubin AST ALT Alkaline Phosphatase Total Creatine Kinase CK-MB (CK-2) CK-MB (CK-2) Rel Index Troponin T C-Reactive Protein 21.80 H Total Protein Albumin Triglycerides Ur Specific [place] 1.031 H Urine WBC (Auto) Miscellaneous Test 03/31/17 03/31/17 03/31/17 03:57 06:54 09:22 WBC RBC Hgb Hct MCV MCH Plt Count Lymph % (Auto) [place] % (Auto) Eos % (Auto) Baso % (Auto) Lymph # Baso # Seg Neutrophils % Lymphocytes % (Manual) Monocytes % (Manual) Nucleated RBC % Seg Neutrophils # Seg Neutrophils # Man Monocytes # (Manual) PT INR Activated Clotting Time POC ABG pH 7.475 H POC ABG pCO2 25.4 L POC ABG pO2 62 L Sodium Potassium Chloride Carbon Dioxide 19 L BUN 22 H Creatinine 0.6 L Glucose 148 H POC Glucose 143 H Calcium 8.3 L Magnesium Direct Bilirubin AST ALT Alkaline Phosphatase Total Creatine Kinase CK-MB (CK-2) CK-MB (CK-2) Rel Index Troponin T C-Reactive Protein Total Protein Albumin Triglycerides Ur Specific [place] Urine WBC (Auto) Miscellaneous Test 03/31/17 03/31/17 03/31/17 11:40 17:47 23:38 WBC RBC Hgb Hct MCV MCH Plt Count Lymph % (Auto) [place] % (Auto) Eos % (Auto) Baso % (Auto) Lymph # Baso # Seg Neutrophils % Lymphocytes % (Manual) Monocytes % (Manual) Nucleated RBC % Seg Neutrophils # Seg Neutrophils # Man Monocytes # (Manual) PT INR Activated Clotting Time POC ABG pH POC ABG pCO2 POC ABG pO2 Sodium Potassium Chloride Carbon Dioxide BUN Creatinine Glucose POC Glucose 127 H 137 H 148 H Calcium Magnesium Direct Bilirubin AST ALT Alkaline Phosphatase Total Creatine Kinase CK-MB (CK-2) CK-MB (CK-2) Rel Index Troponin T C-Reactive Protein Total Protein Albumin Triglycerides Ur Specific [place] Urine WBC (Auto) Miscellaneous Test 04/01/17 04/01/17 04/01/17 04:29 05:01 11:54 WBC RBC Hgb Hct MCV MCH Plt Count Lymph % (Auto) [place] % (Auto) Eos % (Auto) Baso % (Auto) Lymph # Baso # Seg Neutrophils % Lymphocytes % (Manual) Monocytes % (Manual) Nucleated RBC % Seg Neutrophils # Seg Neutrophils # Man Monocytes # (Manual) PT INR Activated Clotting Time POC ABG pH 7.513 H POC ABG pCO2 22.1 L POC ABG pO2 64 L Sodium Potassium Chloride Carbon Dioxide BUN Creatinine Glucose POC Glucose 121 H Calcium Magnesium Direct Bilirubin AST ALT Alkaline Phosphatase Total Creatine Kinase CK-MB (CK-2) CK-MB (CK-2) Rel Index Troponin T C-Reactive Protein Total Protein Albumin Triglycerides 151 H Ur Specific [place] Urine WBC (Auto) Miscellaneous Test 04/01/17 04/02/17 04/02/17 18:17 00:11 04:52 WBC RBC Hgb Hct MCV MCH Plt Count Lymph % (Auto) [place] % (Auto) Eos % (Auto) Baso % (Auto) Lymph # Baso # Seg Neutrophils % Lymphocytes % (Manual) Monocytes % (Manual) Nucleated RBC % Seg Neutrophils # Seg Neutrophils # Man Monocytes # (Manual) PT INR Activated Clotting Time POC ABG pH 7.524 H POC ABG pCO2 25.5 L POC ABG pO2 66 L Sodium Potassium Chloride Carbon Dioxide BUN Creatinine Glucose POC Glucose 117 H 122 H Calcium Magnesium Direct Bilirubin AST ALT Alkaline Phosphatase Total Creatine Kinase CK-MB (CK-2) CK-MB (CK-2) Rel Index Troponin T C-Reactive Protein Total Protein Albumin Triglycerides Ur Specific [place] Urine WBC (Auto) Miscellaneous Test 04/02/17 04/02/17 04/02/17 05:18 10:41 12:19 WBC RBC Hgb Hct MCV MCH Plt Count Lymph % (Auto) [place] % (Auto) Eos % (Auto) Baso % (Auto) Lymph # Baso # Seg Neutrophils % Lymphocytes % (Manual) Monocytes % (Manual) Nucleated RBC % Seg Neutrophils # Seg Neutrophils # Man Monocytes # (Manual) PT INR Activated Clotting Time POC ABG pH 7.534 H POC ABG pCO2 27.4 L POC ABG pO2 Sodium Potassium Chloride Carbon Dioxide BUN Creatinine Glucose POC Glucose 132 H 129 H Calcium Magnesium Direct Bilirubin AST ALT Alkaline Phosphatase Total Creatine Kinase CK-MB (CK-2) CK-MB (CK-2) Rel Index Troponin T C-Reactive Protein Total Protein Albumin Triglycerides Ur Specific [place] Urine WBC (Auto) Miscellaneous Test 04/02/17 04/03/17 04/03/17 18:05 00:08 05:09 WBC RBC Hgb Hct MCV MCH Plt Count Lymph % (Auto) [place] % (Auto) Eos % (Auto) Baso % (Auto) Lymph # Baso # Seg Neutrophils % Lymphocytes % (Manual) Monocytes % (Manual) Nucleated RBC % Seg Neutrophils # Seg Neutrophils # Man Monocytes # (Manual) PT INR Activated Clotting Time POC ABG pH 7.455 H POC ABG pCO2 33.2 L POC ABG pO2 120 H Sodium Potassium Chloride Carbon Dioxide BUN Creatinine Glucose POC Glucose 136 H 128 H Calcium Magnesium Direct Bilirubin AST ALT Alkaline Phosphatase Total Creatine Kinase CK-MB (CK-2) CK-MB (CK-2) Rel Index Troponin T C-Reactive Protein Total Protein Albumin Triglycerides Ur Specific [place] Urine WBC (Auto) Miscellaneous Test 04/03/17 04/03/17 04/03/17 06:32 11:54 12:16 WBC 11.9 H RBC Hgb Hct MCV MCH Plt Count 125 L Lymph % (Auto) 4.8 L [place] % (Auto) Eos % (Auto) Baso % (Auto) Lymph # 0.6 L Baso # Seg Neutrophils % 86.7 H Lymphocytes % (Manual) Monocytes % (Manual) Nucleated RBC % Seg Neutrophils # 10.3 H Seg Neutrophils # Man Monocytes # (Manual) PT INR Activated Clotting Time POC ABG pH POC ABG pCO2 POC ABG pO2 Sodium Potassium Chloride Carbon Dioxide BUN Creatinine Glucose POC Glucose 138 H 143 H Calcium Magnesium Direct Bilirubin AST ALT Alkaline Phosphatase Total Creatine Kinase CK-MB (CK-2) CK-MB (CK-2) Rel Index Troponin T C-Reactive Protein Total Protein Albumin Triglycerides Ur Specific [place] Urine WBC (Auto) Miscellaneous Test 04/03/17 04/03/17 04/04/17 17:33 23:59 04:34 WBC RBC Hgb Hct MCV MCH Plt Count Lymph % (Auto) [place] % (Auto) Eos % (Auto) Baso % (Auto) Lymph # Baso # Seg Neutrophils % Lymphocytes % (Manual) Monocytes % (Manual) Nucleated RBC % Seg Neutrophils # Seg Neutrophils # Man Monocytes # (Manual) PT INR Activated Clotting Time POC ABG pH 7.457 H POC ABG pCO2 29.8 L POC ABG pO2 76 L Sodium Potassium Chloride Carbon Dioxide BUN Creatinine Glucose POC Glucose 130 H 155 H Calcium Magnesium Direct Bilirubin AST ALT Alkaline Phosphatase Total Creatine Kinase CK-MB (CK-2) CK-MB (CK-2) Rel Index Troponin T C-Reactive Protein Total Protein Albumin Triglycerides Ur Specific [place] Urine WBC (Auto) Miscellaneous Test 04/04/17 04/04/17 04/04/17 05:27 12:22 18:18 WBC RBC Hgb Hct MCV MCH Plt Count Lymph % (Auto) [place] % (Auto) Eos % (Auto) Baso % (Auto) Lymph # Baso # Seg Neutrophils % Lymphocytes % (Manual) Monocytes % (Manual) Nucleated RBC % Seg Neutrophils # Seg Neutrophils # Man Monocytes # (Manual) PT INR Activated Clotting Time POC ABG pH POC ABG pCO2 POC ABG pO2 Sodium Potassium Chloride Carbon Dioxide BUN Creatinine Glucose POC Glucose 164 H 146 H 130 H Calcium Magnesium Direct Bilirubin AST ALT Alkaline Phosphatase Total Creatine Kinase CK-MB (CK-2) CK-MB (CK-2) Rel Index Troponin T C-Reactive Protein Total Protein Albumin Triglycerides Ur Specific [place] Urine WBC (Auto) Miscellaneous Test 04/05/17 04/05/17 04/05/17 04:43 05:28 11:36 WBC RBC Hgb Hct MCV MCH Plt Count Lymph % (Auto) [place] % (Auto) Eos % (Auto) Baso % (Auto) Lymph # Baso # Seg Neutrophils % Lymphocytes % (Manual) Monocytes % (Manual) Nucleated RBC % Seg Neutrophils # Seg Neutrophils # Man Monocytes # (Manual) PT INR Activated Clotting Time POC ABG pH 7.479 H POC ABG pCO2 33.5 L POC ABG pO2 76 L Sodium Potassium Chloride Carbon Dioxide BUN Creatinine Glucose POC Glucose 145 H 136 H Calcium Magnesium Direct Bilirubin AST ALT Alkaline Phosphatase Total Creatine Kinase CK-MB (CK-2) CK-MB (CK-2) Rel Index Troponin T C-Reactive Protein Total Protein Albumin Triglycerides Ur Specific [place] Urine WBC (Auto) Miscellaneous Test 04/05/17 04/06/17 04/06/17 17:58 00:16 05:26 WBC RBC Hgb Hct MCV MCH Plt Count Lymph % (Auto) [place] % (Auto) Eos % (Auto) Baso % (Auto) Lymph # Baso # Seg Neutrophils % Lymphocytes % (Manual) Monocytes % (Manual) Nucleated RBC % Seg Neutrophils # Seg Neutrophils # Man Monocytes # (Manual) PT INR Activated Clotting Time POC ABG pH POC ABG pCO2 POC ABG pO2 Sodium Potassium Chloride Carbon Dioxide BUN Creatinine Glucose POC Glucose 130 H 159 H 146 H Calcium Magnesium Direct Bilirubin AST ALT Alkaline Phosphatase Total Creatine Kinase CK-MB (CK-2) CK-MB (CK-2) Rel Index Troponin T C-Reactive Protein Total Protein Albumin Triglycerides Ur Specific [place] Urine WBC (Auto) Miscellaneous Test 04/06/17 04/06/17 04/07/17 13:11 16:54 11:45 WBC RBC Hgb Hct MCV MCH Plt Count Lymph % (Auto) [place] % (Auto) Eos % (Auto) Baso % (Auto) Lymph # Baso # Seg Neutrophils % Lymphocytes % (Manual) Monocytes % (Manual) Nucleated RBC % Seg Neutrophils # Seg Neutrophils # Man Monocytes # (Manual) PT INR Activated Clotting Time POC ABG pH 7.517 H POC ABG pCO2 32.1 L POC ABG pO2 Sodium Potassium Chloride Carbon Dioxide BUN Creatinine Glucose POC Glucose 132 H 123 H Calcium Magnesium Direct Bilirubin AST ALT Alkaline Phosphatase Total Creatine Kinase CK-MB (CK-2) CK-MB (CK-2) Rel Index Troponin T C-Reactive Protein Total Protein Albumin Triglycerides Ur Specific [place] Urine WBC (Auto) Miscellaneous Test 04/07/17 04/07/17 04/07/17 12:51 17:40 23:55 WBC RBC Hgb Hct MCV MCH Plt Count Lymph % (Auto) [place] % (Auto) Eos % (Auto) Baso % (Auto) Lymph # Baso # Seg Neutrophils % Lymphocytes % (Manual) Monocytes % (Manual) Nucleated RBC % Seg Neutrophils # Seg Neutrophils # Man Monocytes # (Manual) PT INR Activated Clotting Time POC ABG pH POC ABG pCO2 POC ABG pO2 Sodium Potassium Chloride Carbon Dioxide BUN Creatinine Glucose POC Glucose 138 H 154 H 143 H Calcium Magnesium Direct Bilirubin AST ALT Alkaline Phosphatase Total Creatine Kinase CK-MB (CK-2) CK-MB (CK-2) Rel Index Troponin T C-Reactive Protein Total Protein Albumin Triglycerides Ur Specific [place] Urine WBC (Auto) Miscellaneous Test 04/08/17 04/08/17 04/08/17 05:27 11:14 17:44 WBC RBC Hgb Hct MCV MCH Plt Count Lymph % (Auto) [place] % (Auto) Eos % (Auto) Baso % (Auto) Lymph # Baso # Seg Neutrophils % Lymphocytes % (Manual) Monocytes % (Manual) Nucleated RBC % Seg Neutrophils # Seg Neutrophils # Man Monocytes # (Manual) PT INR Activated Clotting Time POC ABG pH POC ABG pCO2 POC ABG pO2 Sodium Potassium Chloride Carbon Dioxide BUN Creatinine Glucose POC Glucose 142 H 153 H 129 H Calcium Magnesium Direct Bilirubin AST ALT Alkaline Phosphatase Total Creatine Kinase CK-MB (CK-2) CK-MB (CK-2) Rel Index Troponin T C-Reactive Protein Total Protein Albumin Triglycerides Ur Specific [place] Urine WBC (Auto) Miscellaneous Test 04/09/17 04/09/17 04/09/17 08:20 11:21 17:37 WBC RBC Hgb Hct MCV MCH Plt Count Lymph % (Auto) [place] % (Auto) Eos % (Auto) Baso % (Auto) Lymph # Baso # Seg Neutrophils % Lymphocytes % (Manual) Monocytes % (Manual) Nucleated RBC % Seg Neutrophils # Seg Neutrophils # Man Monocytes # (Manual) PT INR Activated Clotting Time POC ABG pH POC ABG pCO2 POC ABG pO2 Sodium 147 H Potassium Chloride 108.8 H Carbon Dioxide BUN 39 H Creatinine 0.5 L Glucose 138 H POC Glucose 152 H 109 H Calcium Magnesium Direct Bilirubin AST ALT Alkaline Phosphatase Total Creatine Kinase CK-MB (CK-2) CK-MB (CK-2) Rel Index Troponin T C-Reactive Protein Total Protein Albumin Triglycerides Ur Specific [place] Urine WBC (Auto) Miscellaneous Test 04/10/17 04/10/17 04/10/17 00:13 04:16 04:16 WBC RBC Hgb 11.5 L Hct MCV 96 H MCH Plt Count 103 L Lymph % (Auto) 11.1 L [place] % (Auto) Eos % (Auto) Baso % (Auto) Lymph # Baso # Seg Neutrophils % 81.5 H Lymphocytes % (Manual) Monocytes % (Manual) Nucleated RBC % Seg Neutrophils # 8.8 H Seg Neutrophils # Man Monocytes # (Manual) PT INR Activated Clotting Time POC ABG pH POC ABG pCO2 POC ABG pO2 Sodium 148 H Potassium Chloride 109.0 H Carbon Dioxide BUN 36 H Creatinine 0.5 L Glucose 131 H POC Glucose 127 H Calcium 8.1 L Magnesium 2.40 H Direct Bilirubin AST 206 H ALT 228 H Alkaline Phosphatase 178 H Total Creatine Kinase CK-MB (CK-2) CK-MB (CK-2) Rel Index Troponin T C-Reactive Protein Total Protein Albumin 2.8 L Triglycerides Ur Specific [place] Urine WBC (Auto) Miscellaneous Test 04/10/17 04/10/17 04/10/17 06:01 11:57 18:27 WBC RBC Hgb Hct MCV MCH Plt Count Lymph % (Auto) [place] % (Auto) Eos % (Auto) Baso % (Auto) Lymph # Baso # Seg Neutrophils % Lymphocytes % (Manual) Monocytes % (Manual) Nucleated RBC % Seg Neutrophils # Seg Neutrophils # Man Monocytes # (Manual) PT INR Activated Clotting Time POC ABG pH POC ABG pCO2 POC ABG pO2 Sodium Potassium Chloride Carbon Dioxide BUN Creatinine Glucose POC Glucose 108 H 154 H 130 H Calcium Magnesium Direct Bilirubin AST ALT Alkaline Phosphatase Total Creatine Kinase CK-MB (CK-2) CK-MB (CK-2) Rel Index Troponin T C-Reactive Protein Total Protein Albumin Triglycerides Ur Specific [place] Urine WBC (Auto) Miscellaneous Test 04/11/17 04/11/17 04/12/17 12:25 17:10 00:22 WBC RBC Hgb Hct MCV MCH Plt Count Lymph % (Auto) [place] % (Auto) Eos % (Auto) Baso % (Auto) Lymph # Baso # Seg Neutrophils % Lymphocytes % (Manual) Monocytes % (Manual) Nucleated RBC % Seg Neutrophils # Seg Neutrophils # Man Monocytes # (Manual) PT INR Activated Clotting Time POC ABG pH POC ABG pCO2 POC ABG pO2 Sodium Potassium Chloride Carbon Dioxide BUN Creatinine Glucose POC Glucose 107 H 129 H 128 H Calcium Magnesium Direct Bilirubin AST ALT Alkaline Phosphatase Total Creatine Kinase CK-MB (CK-2) CK-MB (CK-2) Rel Index Troponin T C-Reactive Protein Total Protein Albumin Triglycerides Ur Specific [place] Urine WBC (Auto) Miscellaneous Test 04/12/17 04/12/17 04/12/17 05:00 11:57 17:47 WBC RBC Hgb Hct MCV MCH Plt Count Lymph % (Auto) [place] % (Auto) Eos % (Auto) Baso % (Auto) Lymph # Baso # Seg Neutrophils % Lymphocytes % (Manual) Monocytes % (Manual) Nucleated RBC % Seg Neutrophils # Seg Neutrophils # Man Monocytes # (Manual) PT INR Activated Clotting Time POC ABG pH POC ABG pCO2 POC ABG pO2 Sodium Potassium Chloride Carbon Dioxide BUN Creatinine Glucose POC Glucose 140 H 142 H Calcium Magnesium Direct Bilirubin AST 158 H ALT 184 H Alkaline Phosphatase 170 H Total Creatine Kinase CK-MB (CK-2) CK-MB (CK-2) Rel Index Troponin T C-Reactive Protein Total Protein Albumin 2.8 L Triglycerides Ur Specific [place] Urine WBC (Auto) Miscellaneous Test 04/12/17 04/12/17 04/13/17 21:36 21:36 01:37 WBC RBC Hgb Hct MCV MCH Plt Count Lymph % (Auto) [place] % (Auto) Eos % (Auto) Baso % (Auto) Lymph # Baso # Seg Neutrophils % Lymphocytes % (Manual) Monocytes % (Manual) Nucleated RBC % Seg Neutrophils # Seg Neutrophils # Man Monocytes # (Manual) PT INR Activated Clotting Time POC ABG pH POC ABG pCO2 POC ABG pO2 Sodium Potassium Chloride Carbon Dioxide BUN Creatinine Glucose POC Glucose 126 H Calcium Magnesium Direct Bilirubin AST ALT Alkaline Phosphatase Total Creatine Kinase 1404 H CK-MB (CK-2) 8.0 H CK-MB (CK-2) Rel Index Troponin T 0.767 H* C-Reactive Protein Total Protein Albumin Triglycerides Ur Specific [place] Urine WBC (Auto) Miscellaneous Test 04/13/17 04/13/17 04/13/17 04:45 04:52 12:17 WBC RBC Hgb Hct MCV MCH Plt Count Lymph % (Auto) [place] % (Auto) Eos % (Auto) Baso % (Auto) Lymph # Baso # Seg Neutrophils % Lymphocytes % (Manual) Monocytes % (Manual) Nucleated RBC % Seg Neutrophils # Seg Neutrophils # Man Monocytes # (Manual) PT INR Activated Clotting Time POC ABG pH POC ABG pCO2 POC ABG pO2 Sodium 148 H Potassium Chloride 112.8 H Carbon Dioxide BUN 33 H Creatinine 0.4 L Glucose 121 H POC Glucose 126 H 149 H Calcium Magnesium Direct Bilirubin AST 160 H ALT 189 H Alkaline Phosphatase 166 H Total Creatine Kinase CK-MB (CK-2) CK-MB (CK-2) Rel Index Troponin T C-Reactive Protein Total Protein Albumin 2.6 L Triglycerides Ur Specific [place] Urine WBC (Auto) Miscellaneous Test 04/13/17 04/14/17 04/14/17 17:45 00:20 00:45 WBC RBC Hgb Hct MCV MCH Plt Count Lymph % (Auto) [place] % (Auto) Eos % (Auto) Baso % (Auto) Lymph # Baso # Seg Neutrophils % Lymphocytes % (Manual) Monocytes % (Manual) Nucleated RBC % Seg Neutrophils # Seg Neutrophils # Man Monocytes # (Manual) PT INR Activated Clotting Time POC ABG pH POC ABG pCO2 POC ABG pO2 Sodium Potassium Chloride Carbon Dioxide BUN Creatinine Glucose POC Glucose 130 H 144 H 144 H Calcium Magnesium Direct Bilirubin AST ALT Alkaline Phosphatase Total Creatine Kinase CK-MB (CK-2) CK-MB (CK-2) Rel Index Troponin T C-Reactive Protein Total Protein Albumin Triglycerides Ur Specific [place] Urine WBC (Auto) Miscellaneous Test 04/14/17 04/14/17 04/14/17 05:40 11:06 11:31 WBC RBC Hgb Hct MCV MCH Plt Count Lymph % (Auto) [place] % (Auto) Eos % (Auto) Baso % (Auto) Lymph # Baso # Seg Neutrophils % Lymphocytes % (Manual) Monocytes % (Manual) Nucleated RBC % Seg Neutrophils # Seg Neutrophils # Man Monocytes # (Manual) PT INR Activated Clotting Time POC ABG pH POC ABG pCO2 POC ABG pO2 Sodium Potassium Chloride Carbon Dioxide BUN Creatinine Glucose POC Glucose 139 H 123 H Calcium Magnesium Direct Bilirubin AST ALT Alkaline Phosphatase Total Creatine Kinase CK-MB (CK-2) CK-MB (CK-2) Rel Index Troponin T C-Reactive Protein Total Protein Albumin Triglycerides Ur Specific [place] 1.033 H Urine WBC (Auto) > 182.0 H Miscellaneous Test 04/14/17 04/14/17 04/15/17 18:00 23:52 05:15 WBC 12.5 H RBC 3.38 L Hgb 10.6 L Hct 32.7 L MCV 97 H MCH Plt Count 107 L Lymph % (Auto) 8.7 L [place] % (Auto) Eos % (Auto) Baso % (Auto) Lymph # 1.1 L Baso # Seg Neutrophils % 86.1 H Lymphocytes % (Manual) Monocytes % (Manual) Nucleated RBC % Seg Neutrophils # 10.7 H Seg Neutrophils # Man Monocytes # (Manual) PT INR Activated Clotting Time POC ABG pH POC ABG pCO2 POC ABG pO2 Sodium Potassium Chloride Carbon Dioxide BUN Creatinine Glucose POC Glucose 133 H 133 H Calcium Magnesium Direct Bilirubin AST ALT Alkaline Phosphatase Total Creatine Kinase CK-MB (CK-2) CK-MB (CK-2) Rel Index Troponin T C-Reactive Protein Total Protein Albumin Triglycerides Ur Specific [place] Urine WBC (Auto) Miscellaneous Test 04/15/17 04/15/17 04/15/17 05:15 05:25 11:50 WBC RBC Hgb Hct MCV MCH Plt Count Lymph % (Auto) [place] % (Auto) Eos % (Auto) Baso % (Auto) Lymph # Baso # Seg Neutrophils % Lymphocytes % (Manual) Monocytes % (Manual) Nucleated RBC % Seg Neutrophils # Seg Neutrophils # Man Monocytes # (Manual) PT INR Activated Clotting Time POC ABG pH POC ABG pCO2 POC ABG pO2 Sodium 149 H Potassium 3.5 L Chloride 114.1 H Carbon Dioxide 21 L BUN 29 H Creatinine 0.4 L Glucose 128 H POC Glucose 133 H 107 H Calcium 8.3 L Magnesium Direct Bilirubin 0.4 H AST 149 H ALT 182 H Alkaline Phosphatase 143 H Total Creatine Kinase CK-MB (CK-2) CK-MB (CK-2) Rel Index Troponin T C-Reactive Protein Total Protein Albumin 2.5 L Triglycerides Ur Specific [place] Urine WBC (Auto) Miscellaneous Test 04/15/17 04/16/17 04/16/17 16:55 00:02 03:17 WBC RBC 3.39 L Hgb 10.5 L Hct 32.4 L MCV 96 H MCH Plt Count 106 L Lymph % (Auto) 6.7 L [place] % (Auto) Eos % (Auto) Baso % (Auto) Lymph # 0.6 L Baso # Seg Neutrophils % 86.8 H Lymphocytes % (Manual) Monocytes % (Manual) Nucleated RBC % Seg Neutrophils # 8.2 H Seg Neutrophils # Man Monocytes # (Manual) PT INR Activated Clotting Time POC ABG pH POC ABG pCO2 POC ABG pO2 Sodium Potassium Chloride Carbon Dioxide BUN Creatinine Glucose POC Glucose 146 H 148 H Calcium Magnesium Direct Bilirubin AST ALT Alkaline Phosphatase Total Creatine Kinase CK-MB (CK-2) CK-MB (CK-2) Rel Index Troponin T C-Reactive Protein Total Protein Albumin Triglycerides Ur Specific [place] Urine WBC (Auto) Miscellaneous Test 04/16/17 04/16/17 04/16/17 03:17 05:19 11:13 WBC RBC Hgb Hct MCV MCH Plt Count Lymph % (Auto) [place] % (Auto) Eos % (Auto) Baso % (Auto) Lymph # Baso # Seg Neutrophils % Lymphocytes % (Manual) Monocytes % (Manual) Nucleated RBC % Seg Neutrophils # Seg Neutrophils # Man Monocytes # (Manual) PT INR Activated Clotting Time POC ABG pH POC ABG pCO2 POC ABG pO2 Sodium 149 H Potassium Chloride 111.1 H Carbon Dioxide 20 L BUN 27 H Creatinine 0.3 L Glucose 156 H POC Glucose 171 H 169 H Calcium 8.3 L Magnesium Direct Bilirubin AST ALT Alkaline Phosphatase Total Creatine Kinase CK-MB (CK-2) CK-MB (CK-2) Rel Index Troponin T C-Reactive Protein Total Protein Albumin Triglycerides Ur Specific [place] Urine WBC (Auto) Miscellaneous Test 04/16/17 04/17/17 04/17/17 17:03 00:00 05:09 WBC RBC Hgb Hct MCV MCH Plt Count Lymph % (Auto) [place] % (Auto) Eos % (Auto) Baso % (Auto) Lymph # Baso # Seg Neutrophils % Lymphocytes % (Manual) Monocytes % (Manual) Nucleated RBC % Seg Neutrophils # Seg Neutrophils # Man Monocytes # (Manual) PT INR Activated Clotting Time POC ABG pH POC ABG pCO2 POC ABG pO2 Sodium Potassium Chloride Carbon Dioxide BUN Creatinine Glucose POC Glucose 151 H 165 H 145 H Calcium Magnesium Direct Bilirubin AST ALT Alkaline Phosphatase Total Creatine Kinase CK-MB (CK-2) CK-MB (CK-2) Rel Index Troponin T C-Reactive Protein Total Protein Albumin Triglycerides Ur Specific [place] Urine WBC (Auto) Miscellaneous Test 04/17/17 04/17/17 04/18/17 11:38 17:47 00:01 WBC RBC Hgb Hct MCV MCH Plt Count Lymph % (Auto) [place] % (Auto) Eos % (Auto) Baso % (Auto) Lymph # Baso # Seg Neutrophils % Lymphocytes % (Manual) Monocytes % (Manual) Nucleated RBC % Seg Neutrophils # Seg Neutrophils # Man Monocytes # (Manual) PT INR Activated Clotting Time POC ABG pH POC ABG pCO2 POC ABG pO2 Sodium Potassium Chloride Carbon Dioxide BUN Creatinine Glucose POC Glucose 170 H 161 H 131 H Calcium Magnesium Direct Bilirubin AST ALT Alkaline Phosphatase Total Creatine Kinase CK-MB (CK-2) CK-MB (CK-2) Rel Index Troponin T C-Reactive Protein Total Protein Albumin Triglycerides Ur Specific [place] Urine WBC (Auto) Miscellaneous Test 04/18/17 04/18/17 04/18/17 03:55 03:55 05:30 WBC RBC 3.05 L Hgb 9.8 L Hct 29.0 L MCV 95 H MCH Plt Count 113 L Lymph % (Auto) [place] % (Auto) Eos % (Auto) 5.3 H Baso % (Auto) Lymph # Baso # Seg Neutrophils % 71.5 H Lymphocytes % (Manual) Monocytes % (Manual) Nucleated RBC % Seg Neutrophils # Seg Neutrophils # Man Monocytes # (Manual) PT INR Activated Clotting Time POC ABG pH 7.460 H POC ABG pCO2 30.8 L POC ABG pO2 129 H Sodium Potassium Chloride Carbon Dioxide 21 L BUN 25 H Creatinine 0.4 L Glucose 123 H POC Glucose Calcium 8.3 L Magnesium Direct Bilirubin AST ALT Alkaline Phosphatase Total Creatine Kinase CK-MB (CK-2) CK-MB (CK-2) Rel Index Troponin T C-Reactive Protein Total Protein Albumin Triglycerides Ur Specific [place] Urine WBC (Auto) Miscellaneous Test 04/18/17 04/18/17 04/19/17 17:10 23:40 04:36 WBC RBC 3.21 L Hgb 10.2 L Hct 30.4 L MCV 95 H MCH Plt Count 131 L Lymph % (Auto) 12.1 L [place] % (Auto) Eos % (Auto) 4.7 H Baso % (Auto) 2.4 H Lymph # 0.9 L Baso # 0.2 H Seg Neutrophils % 75.0 H Lymphocytes % (Manual) Monocytes % (Manual) Nucleated RBC % Seg Neutrophils # Seg Neutrophils # Man Monocytes # (Manual) PT INR Activated Clotting Time POC ABG pH POC ABG pCO2 POC ABG pO2 Sodium Potassium Chloride Carbon Dioxide BUN Creatinine Glucose POC Glucose 135 H 157 H Calcium Magnesium Direct Bilirubin AST ALT Alkaline Phosphatase Total Creatine Kinase CK-MB (CK-2) CK-MB (CK-2) Rel Index Troponin T C-Reactive Protein Total Protein Albumin Triglycerides Ur Specific [place] Urine WBC (Auto) Miscellaneous Test 04/19/17 04/19/17 04/19/17 04:36 05:12 06:50 WBC RBC Hgb Hct MCV MCH Plt Count Lymph % (Auto) [place] % (Auto) Eos % (Auto) Baso % (Auto) Lymph # Baso # Seg Neutrophils % Lymphocytes % (Manual) Monocytes % (Manual) Nucleated RBC % Seg Neutrophils # Seg Neutrophils # Man Monocytes # (Manual) PT INR Activated Clotting Time POC ABG pH 7.516 H POC ABG pCO2 28.0 L POC ABG pO2 Sodium Potassium Chloride Carbon Dioxide 21 L BUN 23 H Creatinine 0.2 L Glucose 137 H POC Glucose 131 H Calcium 7.9 L Magnesium Direct Bilirubin AST ALT Alkaline Phosphatase Total Creatine Kinase CK-MB (CK-2) CK-MB (CK-2) Rel Index Troponin T C-Reactive Protein Total Protein Albumin Triglycerides Ur Specific [place] Urine WBC (Auto) Miscellaneous Test 04/19/17 04/19/17 04/20/17 12:36 17:42 00:12 WBC RBC Hgb Hct MCV MCH Plt Count Lymph % (Auto) [place] % (Auto) Eos % (Auto) Baso % (Auto) Lymph # Baso # Seg Neutrophils % Lymphocytes % (Manual) Monocytes % (Manual) Nucleated RBC % Seg Neutrophils # Seg Neutrophils # Man Monocytes # (Manual) PT INR Activated Clotting Time POC ABG pH POC ABG pCO2 POC ABG pO2 Sodium Potassium Chloride Carbon Dioxide BUN Creatinine Glucose POC Glucose 128 H 140 H 132 H Calcium Magnesium Direct Bilirubin AST ALT Alkaline Phosphatase Total Creatine Kinase CK-MB (CK-2) CK-MB (CK-2) Rel Index Troponin T C-Reactive Protein Total Protein Albumin Triglycerides Ur Specific [place] Urine WBC (Auto) Miscellaneous Test 04/20/17 04/20/17 04/20/17 03:35 03:35 05:10 WBC RBC 3.34 L Hgb 10.4 L Hct 31.6 L MCV 95 H MCH Plt Count Lymph % (Auto) 12.9 L [place] % (Auto) Eos % (Auto) Baso % (Auto) Lymph # Baso # Seg Neutrophils % 77.3 H Lymphocytes % (Manual) Monocytes % (Manual) Nucleated RBC % Seg Neutrophils # Seg Neutrophils # Man Monocytes # (Manual) PT INR Activated Clotting Time POC ABG pH POC ABG pCO2 POC ABG pO2 Sodium Potassium Chloride Carbon Dioxide BUN Creatinine 0.3 L Glucose 155 H POC Glucose 135 H Calcium 7.8 L Magnesium Direct Bilirubin AST ALT Alkaline Phosphatase Total Creatine Kinase CK-MB (CK-2) CK-MB (CK-2) Rel Index Troponin T C-Reactive Protein Total Protein Albumin Triglycerides Ur Specific [place] Urine WBC (Auto) Miscellaneous Test 04/20/17 04/20/17 04/21/17 12:49 18:21 00:05 WBC RBC Hgb Hct MCV MCH Plt Count Lymph % (Auto) [place] % (Auto) Eos % (Auto) Baso % (Auto) Lymph # Baso # Seg Neutrophils % Lymphocytes % (Manual) Monocytes % (Manual) Nucleated RBC % Seg Neutrophils # Seg Neutrophils # Man Monocytes # (Manual) PT INR Activated Clotting Time POC ABG pH POC ABG pCO2 POC ABG pO2 Sodium Potassium Chloride Carbon Dioxide BUN Creatinine Glucose POC Glucose 155 H 165 H 141 H Calcium Magnesium Direct Bilirubin AST ALT Alkaline Phosphatase Total Creatine Kinase CK-MB (CK-2) CK-MB (CK-2) Rel Index Troponin T C-Reactive Protein Total Protein Albumin Triglycerides Ur Specific [place] Urine WBC (Auto) Miscellaneous Test 04/21/17 04/21/17 04/21/17 06:00 12:11 17:04 WBC RBC Hgb Hct MCV MCH Plt Count Lymph % (Auto) [place] % (Auto) Eos % (Auto) Baso % (Auto) Lymph # Baso # Seg Neutrophils % Lymphocytes % (Manual) Monocytes % (Manual) Nucleated RBC % Seg Neutrophils # Seg Neutrophils # Man Monocytes # (Manual) PT INR Activated Clotting Time POC ABG pH POC ABG pCO2 POC ABG pO2 Sodium Potassium Chloride Carbon Dioxide BUN Creatinine Glucose POC Glucose 152 H 165 H 156 H Calcium Magnesium Direct Bilirubin AST ALT Alkaline Phosphatase Total Creatine Kinase CK-MB (CK-2) CK-MB (CK-2) Rel Index Troponin T C-Reactive Protein Total Protein Albumin Triglycerides Ur Specific [place] Urine WBC (Auto) Miscellaneous Test 04/21/17 04/21/17 04/22/17 22:00 23:59 05:49 WBC RBC Hgb Hct MCV MCH Plt Count Lymph % (Auto) [place] % (Auto) Eos % (Auto) Baso % (Auto) Lymph # Baso # Seg Neutrophils % Lymphocytes % (Manual) Monocytes % (Manual) Nucleated RBC % Seg Neutrophils # Seg Neutrophils # Man Monocytes # (Manual) PT INR Activated Clotting Time POC ABG pH POC ABG pCO2 POC ABG pO2 Sodium Potassium Chloride Carbon Dioxide BUN Creatinine Glucose POC Glucose 166 H 173 H Calcium Magnesium Direct Bilirubin AST ALT Alkaline Phosphatase Total Creatine Kinase CK-MB (CK-2) CK-MB (CK-2) Rel Index Troponin T C-Reactive Protein Total Protein Albumin Triglycerides Ur Specific [place] Urine WBC (Auto) 10.0 H Miscellaneous Test 04/22/17 04/22/17 04/23/17 11:11 18:04 00:37 WBC RBC Hgb Hct MCV MCH Plt Count Lymph % (Auto) [place] % (Auto) Eos % (Auto) Baso % (Auto) Lymph # Baso # Seg Neutrophils % Lymphocytes % (Manual) Monocytes % (Manual) Nucleated RBC % Seg Neutrophils # Seg Neutrophils # Man Monocytes # (Manual) PT INR Activated Clotting Time POC ABG pH POC ABG pCO2 POC ABG pO2 Sodium Potassium Chloride Carbon Dioxide BUN Creatinine Glucose POC Glucose 172 H 140 H 135 H Calcium Magnesium Direct Bilirubin AST ALT Alkaline Phosphatase Total Creatine Kinase CK-MB (CK-2) CK-MB (CK-2) Rel Index Troponin T C-Reactive Protein Total Protein Albumin Triglycerides Ur Specific [place] Urine WBC (Auto) Miscellaneous Test 04/23/17 04/23/17 04/23/17 05:33 06:20 11:10 WBC RBC 3.19 L Hgb 9.9 L Hct 30.0 L MCV MCH Plt Count Lymph % (Auto) 8.0 L [place] % (Auto) Eos % (Auto) Baso % (Auto) Lymph # 0.8 L Baso # Seg Neutrophils % 84.5 H Lymphocytes % (Manual) Monocytes % (Manual) Nucleated RBC % Seg Neutrophils # 8.2 H Seg Neutrophils # Man Monocytes # (Manual) PT INR Activated Clotting Time POC ABG pH POC ABG pCO2 POC ABG pO2 Sodium Potassium Chloride Carbon Dioxide BUN Creatinine Glucose POC Glucose 134 H 134 H Calcium Magnesium Direct Bilirubin AST ALT Alkaline Phosphatase Total Creatine Kinase CK-MB (CK-2) CK-MB (CK-2) Rel Index Troponin T C-Reactive Protein Total Protein Albumin Triglycerides Ur Specific [place] Urine WBC (Auto) Miscellaneous Test 04/23/17 04/24/17 04/24/17 17:26 00:53 06:46 WBC RBC Hgb Hct MCV MCH Plt Count Lymph % (Auto) [place] % (Auto) Eos % (Auto) Baso % (Auto) Lymph # Baso # Seg Neutrophils % Lymphocytes % (Manual) Monocytes % (Manual) Nucleated RBC % Seg Neutrophils # Seg Neutrophils # Man Monocytes # (Manual) PT INR Activated Clotting Time POC ABG pH POC ABG pCO2 POC ABG pO2 Sodium Potassium Chloride Carbon Dioxide BUN Creatinine Glucose POC Glucose 164 H 146 H 125 H Calcium Magnesium Direct Bilirubin AST ALT Alkaline Phosphatase Total Creatine Kinase CK-MB (CK-2) CK-MB (CK-2) Rel Index Troponin T C-Reactive Protein Total Protein Albumin Triglycerides Ur Specific [place] Urine WBC (Auto) Miscellaneous Test 04/24/17 04/24/17 04/24/17 11:55 17:50 23:36 WBC RBC Hgb Hct MCV MCH Plt Count Lymph % (Auto) [place] % (Auto) Eos % (Auto) Baso % (Auto) Lymph # Baso # Seg Neutrophils % Lymphocytes % (Manual) Monocytes % (Manual) Nucleated RBC % Seg Neutrophils # Seg Neutrophils # Man Monocytes # (Manual) PT INR Activated Clotting Time POC ABG pH POC ABG pCO2 POC ABG pO2 Sodium Potassium Chloride Carbon Dioxide BUN Creatinine Glucose POC Glucose 156 H 146 H 131 H Calcium Magnesium Direct Bilirubin AST ALT Alkaline Phosphatase Total Creatine Kinase CK-MB (CK-2) CK-MB (CK-2) Rel Index Troponin T C-Reactive Protein Total Protein Albumin Triglycerides Ur Specific [place] Urine WBC (Auto) Miscellaneous Test 04/25/17 04/25/17 04/25/17 04:51 05:16 07:07 WBC RBC Hgb Hct MCV MCH Plt Count Lymph % (Auto) [place] % (Auto) Eos % (Auto) Baso % (Auto) Lymph # Baso # Seg Neutrophils % Lymphocytes % (Manual) Monocytes % (Manual) Nucleated RBC % Seg Neutrophils # Seg Neutrophils # Man Monocytes # (Manual) PT INR Activated Clotting Time POC ABG pH POC ABG pCO2 POC ABG pO2 Sodium Potassium Chloride Carbon Dioxide BUN Creatinine Glucose POC Glucose 139 H Calcium Magnesium Direct Bilirubin AST 105 H ALT 204 H Alkaline Phosphatase 189 H Total Creatine Kinase CK-MB (CK-2) CK-MB (CK-2) Rel Index Troponin T C-Reactive Protein Total Protein Albumin 2.4 L Triglycerides Ur Specific [place] Urine WBC (Auto) Miscellaneous Test Flexitest 1 H 04/25/17 04/25/17 04/25/17 12:29 17:23 23:32 WBC RBC Hgb Hct MCV MCH Plt Count Lymph % (Auto) [place] % (Auto) Eos % (Auto) Baso % (Auto) Lymph # Baso # Seg Neutrophils % Lymphocytes % (Manual) Monocytes % (Manual) Nucleated RBC % Seg Neutrophils # Seg Neutrophils # Man Monocytes # (Manual) PT INR Activated Clotting Time POC ABG pH POC ABG pCO2 POC ABG pO2 Sodium Potassium Chloride Carbon Dioxide BUN Creatinine Glucose POC Glucose 132 H 133 H 128 H Calcium Magnesium Direct Bilirubin AST ALT Alkaline Phosphatase Total Creatine Kinase CK-MB (CK-2) CK-MB (CK-2) Rel Index Troponin T C-Reactive Protein Total Protein Albumin Triglycerides Ur Specific [place] Urine WBC (Auto) Miscellaneous Test 04/26/17 04/26/17 04/26/17 05:24 11:28 17:09 WBC RBC Hgb Hct MCV MCH Plt Count Lymph % (Auto) [place] % (Auto) Eos % (Auto) Baso % (Auto) Lymph # Baso # Seg Neutrophils % Lymphocytes % (Manual) Monocytes % (Manual) Nucleated RBC % Seg Neutrophils # Seg Neutrophils # Man Monocytes # (Manual) PT INR Activated Clotting Time POC ABG pH POC ABG pCO2 POC ABG pO2 Sodium Potassium Chloride Carbon Dioxide BUN Creatinine Glucose POC Glucose 132 H 146 H 141 H Calcium Magnesium Direct Bilirubin AST ALT Alkaline Phosphatase Total Creatine Kinase CK-MB (CK-2) CK-MB (CK-2) Rel Index Troponin T C-Reactive Protein Total Protein Albumin Triglycerides Ur Specific [place] Urine WBC (Auto) Miscellaneous Test 04/26/17 04/27/17 04/27/17 23:52 05:40 05:40 WBC RBC 3.22 L Hgb 10.0 L Hct 29.9 L MCV MCH Plt Count Lymph % (Auto) [place] % (Auto) Eos % (Auto) Baso % (Auto) Lymph # Baso # Seg Neutrophils % 76.6 H Lymphocytes % (Manual) Monocytes % (Manual) Nucleated RBC % Seg Neutrophils # Seg Neutrophils # Man Monocytes # (Manual) PT INR Activated Clotting Time POC ABG pH POC ABG pCO2 POC ABG pO2 Sodium Potassium Chloride Carbon Dioxide BUN Creatinine Glucose POC Glucose 140 H Calcium Magnesium Direct Bilirubin AST 66 H ALT 137 H Alkaline Phosphatase 169 H Total Creatine Kinase CK-MB (CK-2) CK-MB (CK-2) Rel Index Troponin T C-Reactive Protein Total Protein 6.2 L Albumin 2.6 L Triglycerides Ur Specific [place] Urine WBC (Auto) Miscellaneous Test 04/27/17 04/27/17 04/27/17 05:40 06:10 11:13 WBC RBC Hgb Hct MCV MCH Plt Count Lymph % (Auto) [place] % (Auto) Eos % (Auto) Baso % (Auto) Lymph # Baso # Seg Neutrophils % Lymphocytes % (Manual) Monocytes % (Manual) Nucleated RBC % Seg Neutrophils # Seg Neutrophils # Man Monocytes # (Manual) PT INR Activated Clotting Time POC ABG pH POC ABG pCO2 POC ABG pO2 Sodium Potassium Chloride Carbon Dioxide BUN Creatinine 0.2 L Glucose 139 H POC Glucose 130 H 151 H Calcium Magnesium Direct Bilirubin AST ALT Alkaline Phosphatase Total Creatine Kinase CK-MB (CK-2) CK-MB (CK-2) Rel Index Troponin T C-Reactive Protein Total Protein Albumin Triglycerides Ur Specific [place] Urine WBC (Auto) Miscellaneous Test 04/27/17 04/27/17 04/28/17 17:37 23:19 05:24 WBC RBC Hgb Hct MCV MCH Plt Count Lymph % (Auto) [place] % (Auto) Eos % (Auto) Baso % (Auto) Lymph # Baso # Seg Neutrophils % Lymphocytes % (Manual) Monocytes % (Manual) Nucleated RBC % Seg Neutrophils # Seg Neutrophils # Man Monocytes # (Manual) PT INR Activated Clotting Time POC ABG pH POC ABG pCO2 POC ABG pO2 Sodium Potassium Chloride Carbon Dioxide BUN Creatinine Glucose POC Glucose 159 H 130 H 132 H Calcium Magnesium Direct Bilirubin AST ALT Alkaline Phosphatase Total Creatine Kinase CK-MB (CK-2) CK-MB (CK-2) Rel Index Troponin T C-Reactive Protein Total Protein Albumin Triglycerides Ur Specific [place] Urine WBC (Auto) Miscellaneous Test 04/28/17 04/28/17 04/28/17 11:15 17:38 23:23 WBC RBC Hgb Hct MCV MCH Plt Count Lymph % (Auto) [place] % (Auto) Eos % (Auto) Baso % (Auto) Lymph # Baso # Seg Neutrophils % Lymphocytes % (Manual) Monocytes % (Manual) Nucleated RBC % Seg Neutrophils # Seg Neutrophils # Man Monocytes # (Manual) PT INR Activated Clotting Time POC ABG pH POC ABG pCO2 POC ABG pO2 Sodium Potassium Chloride Carbon Dioxide BUN Creatinine Glucose POC Glucose 162 H 133 H 138 H Calcium Magnesium Direct Bilirubin AST ALT Alkaline Phosphatase Total Creatine Kinase CK-MB (CK-2) CK-MB (CK-2) Rel Index Troponin T C-Reactive Protein Total Protein Albumin Triglycerides Ur Specific [place] Urine WBC (Auto) Miscellaneous Test 04/29/17 04/29/17 04/29/17 05:15 12:55 17:21 WBC RBC Hgb Hct MCV MCH Plt Count Lymph % (Auto) [place] % (Auto) Eos % (Auto) Baso % (Auto) Lymph # Baso # Seg Neutrophils % Lymphocytes % (Manual) Monocytes % (Manual) Nucleated RBC % Seg Neutrophils # Seg Neutrophils # Man Monocytes # (Manual) PT INR Activated Clotting Time POC ABG pH POC ABG pCO2 POC ABG pO2 Sodium Potassium Chloride Carbon Dioxide BUN Creatinine Glucose POC Glucose 135 H 127 H 138 H Calcium Magnesium Direct Bilirubin AST ALT Alkaline Phosphatase Total Creatine Kinase CK-MB (CK-2) CK-MB (CK-2) Rel Index Troponin T C-Reactive Protein Total Protein Albumin Triglycerides Ur Specific [place] Urine WBC (Auto) Miscellaneous Test 04/29/17 04/30/17 04/30/17 23:52 04:55 12:22 WBC RBC Hgb Hct MCV MCH Plt Count Lymph % (Auto) [place] % (Auto) Eos % (Auto) Baso % (Auto) Lymph # Baso # Seg Neutrophils % Lymphocytes % (Manual) Monocytes % (Manual) Nucleated RBC % Seg Neutrophils # Seg Neutrophils # Man Monocytes # (Manual) PT INR Activated Clotting Time POC ABG pH POC ABG pCO2 POC ABG pO2 Sodium Potassium Chloride Carbon Dioxide BUN Creatinine Glucose POC Glucose 142 H 146 H 132 H Calcium Magnesium Direct Bilirubin AST ALT Alkaline Phosphatase Total Creatine Kinase CK-MB (CK-2) CK-MB (CK-2) Rel Index Troponin T C-Reactive Protein Total Protein Albumin Triglycerides Ur Specific [place] Urine WBC (Auto) Miscellaneous Test 04/30/17 04/30/17 04/30/17 14:25 17:47 18:20 WBC RBC Hgb Hct MCV MCH Plt Count Lymph % (Auto) [place] % (Auto) Eos % (Auto) Baso % (Auto) Lymph # Baso # Seg Neutrophils % Lymphocytes % (Manual) Monocytes % (Manual) Nucleated RBC % Seg Neutrophils # Seg Neutrophils # Man Monocytes # (Manual) PT INR Activated Clotting Time POC ABG pH 7.551 H POC ABG pCO2 32.7 L POC ABG pO2 Sodium Potassium Chloride Carbon Dioxide BUN 21 H Creatinine 0.2 L Glucose 141 H POC Glucose 139 H Calcium Magnesium Direct Bilirubin AST ALT Alkaline Phosphatase Total Creatine Kinase CK-MB (CK-2) CK-MB (CK-2) Rel Index Troponin T C-Reactive Protein Total Protein Albumin Triglycerides Ur Specific [place] Urine WBC (Auto) Miscellaneous Test 05/01/17 05/01/17 05/01/17 01:26 05:30 05:30 WBC RBC 3.49 L Hgb 10.3 L Hct 31.9 L MCV MCH Plt Count Lymph % (Auto) [place] % (Auto) 8.1 H Eos % (Auto) Baso % (Auto) Lymph # Baso # Seg Neutrophils % 71.3 H Lymphocytes % (Manual) Monocytes % (Manual) Nucleated RBC % Seg Neutrophils # Seg Neutrophils # Man Monocytes # (Manual) PT INR Activated Clotting Time POC ABG pH POC ABG pCO2 POC ABG pO2 Sodium 136 L Potassium Chloride 97.6 L Carbon Dioxide BUN Creatinine 0.2 L Glucose 123 H POC Glucose 116 H Calcium Magnesium Direct Bilirubin AST 71 H ALT 125 H Alkaline Phosphatase 158 H Total Creatine Kinase CK-MB (CK-2) CK-MB (CK-2) Rel Index Troponin T C-Reactive Protein Total Protein Albumin 2.6 L Triglycerides Ur Specific [place] Urine WBC (Auto) Miscellaneous Test 05/01/17 05/01/17 05/02/17 11:59 17:23 00:08 WBC RBC Hgb Hct MCV MCH Plt Count Lymph % (Auto) [place] % (Auto) Eos % (Auto) Baso % (Auto) Lymph # Baso # Seg Neutrophils % Lymphocytes % (Manual) Monocytes % (Manual) Nucleated RBC % Seg Neutrophils # Seg Neutrophils # Man Monocytes # (Manual) PT INR Activated Clotting Time POC ABG pH POC ABG pCO2 POC ABG pO2 Sodium Potassium Chloride Carbon Dioxide BUN Creatinine Glucose POC Glucose 118 H 144 H 122 H Calcium Magnesium Direct Bilirubin AST ALT Alkaline Phosphatase Total Creatine Kinase CK-MB (CK-2) CK-MB (CK-2) Rel Index Troponin T C-Reactive Protein Total Protein Albumin Triglycerides Ur Specific [place] Urine WBC (Auto) Miscellaneous Test 05/02/17 05/02/17 05/02/17 05:50 11:21 17:48 WBC RBC Hgb Hct MCV MCH Plt Count Lymph % (Auto) [place] % (Auto) Eos % (Auto) Baso % (Auto) Lymph # Baso # Seg Neutrophils % Lymphocytes % (Manual) Monocytes % (Manual) Nucleated RBC % Seg Neutrophils # Seg Neutrophils # Man Monocytes # (Manual) PT INR Activated Clotting Time POC ABG pH POC ABG pCO2 POC ABG pO2 Sodium Potassium Chloride Carbon Dioxide BUN Creatinine Glucose POC Glucose 120 H 121 H 140 H Calcium Magnesium Direct Bilirubin AST ALT Alkaline Phosphatase Total Creatine Kinase CK-MB (CK-2) CK-MB (CK-2) Rel Index Troponin T C-Reactive Protein Total Protein Albumin Triglycerides Ur Specific [place] Urine WBC (Auto) Miscellaneous Test 05/02/17 05/03/17 05/03/17 23:12 05:35 11:52 WBC RBC Hgb Hct MCV MCH Plt Count Lymph % (Auto) [place] % (Auto) Eos % (Auto) Baso % (Auto) Lymph # Baso # Seg Neutrophils % Lymphocytes % (Manual) Monocytes % (Manual) Nucleated RBC % Seg Neutrophils # Seg Neutrophils # Man Monocytes # (Manual) PT INR Activated Clotting Time POC ABG pH POC ABG pCO2 POC ABG pO2 Sodium Potassium Chloride Carbon Dioxide BUN Creatinine Glucose POC Glucose 128 H 113 H 126 H Calcium Magnesium Direct Bilirubin AST ALT Alkaline Phosphatase Total Creatine Kinase CK-MB (CK-2) CK-MB (CK-2) Rel Index Troponin T C-Reactive Protein Total Protein Albumin Triglycerides Ur Specific [place] Urine WBC (Auto) Miscellaneous Test 05/03/17 05/03/17 05/04/17 17:29 23:26 04:55 WBC RBC Hgb Hct MCV MCH Plt Count Lymph % (Auto) [place] % (Auto) Eos % (Auto) Baso % (Auto) Lymph # Baso # Seg Neutrophils % Lymphocytes % (Manual) Monocytes % (Manual) Nucleated RBC % Seg Neutrophils # Seg Neutrophils # Man Monocytes # (Manual) PT INR Activated Clotting Time POC ABG pH POC ABG pCO2 POC ABG pO2 Sodium Potassium Chloride Carbon Dioxide BUN Creatinine Glucose POC Glucose 141 H 129 H 126 H Calcium Magnesium Direct Bilirubin AST ALT Alkaline Phosphatase Total Creatine Kinase CK-MB (CK-2) CK-MB (CK-2) Rel Index Troponin T C-Reactive Protein Total Protein Albumin Triglycerides Ur Specific [place] Urine WBC (Auto) Miscellaneous Test 05/04/17 05/04/17 05/05/17 12:09 17:46 00:06 WBC RBC Hgb Hct MCV MCH Plt Count Lymph % (Auto) [place] % (Auto) Eos % (Auto) Baso % (Auto) Lymph # Baso # Seg Neutrophils % Lymphocytes % (Manual) Monocytes % (Manual) Nucleated RBC % Seg Neutrophils # Seg Neutrophils # Man Monocytes # (Manual) PT INR Activated Clotting Time POC ABG pH POC ABG pCO2 POC ABG pO2 Sodium Potassium Chloride Carbon Dioxide BUN Creatinine Glucose POC Glucose 125 H 125 H 110 H Calcium Magnesium Direct Bilirubin AST ALT Alkaline Phosphatase Total Creatine Kinase CK-MB (CK-2) CK-MB (CK-2) Rel Index Troponin T C-Reactive Protein Total Protein Albumin Triglycerides Ur Specific [place] Urine WBC (Auto) Miscellaneous Test 05/05/17 05/05/17 05/05/17 05:48 11:41 16:19 WBC RBC Hgb Hct MCV MCH Plt Count Lymph % (Auto) [place] % (Auto) Eos % (Auto) Baso % (Auto) Lymph # Baso # Seg Neutrophils % Lymphocytes % (Manual) Monocytes % (Manual) Nucleated RBC % Seg Neutrophils # Seg Neutrophils # Man Monocytes # (Manual) PT INR Activated Clotting Time POC ABG pH POC ABG pCO2 POC ABG pO2 Sodium Potassium Chloride Carbon Dioxide BUN Creatinine Glucose POC Glucose 124 H 122 H 120 H Calcium Magnesium Direct Bilirubin AST ALT Alkaline Phosphatase Total Creatine Kinase CK-MB (CK-2) CK-MB (CK-2) Rel Index Troponin T C-Reactive Protein Total Protein Albumin Triglycerides Ur Specific [place] Urine WBC (Auto) Miscellaneous Test 05/06/17 05/06/17 05/06/17 00:16 05:47 11:42 WBC RBC Hgb Hct MCV MCH Plt Count Lymph % (Auto) [place] % (Auto) Eos % (Auto) Baso % (Auto) Lymph # Baso # Seg Neutrophils % Lymphocytes % (Manual) Monocytes % (Manual) Nucleated RBC % Seg Neutrophils # Seg Neutrophils # Man Monocytes # (Manual) PT INR Activated Clotting Time POC ABG pH POC ABG pCO2 POC ABG pO2 Sodium Potassium Chloride Carbon Dioxide BUN Creatinine Glucose POC Glucose 110 H 142 H 120 H Calcium Magnesium Direct Bilirubin AST ALT Alkaline Phosphatase Total Creatine Kinase CK-MB (CK-2) CK-MB (CK-2) Rel Index Troponin T C-Reactive Protein Total Protein Albumin Triglycerides Ur Specific [place] Urine WBC (Auto) Miscellaneous Test 05/06/17 05/07/17 05/07/17 17:46 00:07 05:28 WBC RBC Hgb Hct MCV MCH Plt Count Lymph % (Auto) [place] % (Auto) Eos % (Auto) Baso % (Auto) Lymph # Baso # Seg Neutrophils % Lymphocytes % (Manual) Monocytes % (Manual) Nucleated RBC % Seg Neutrophils # Seg Neutrophils # Man Monocytes # (Manual) PT INR Activated Clotting Time POC ABG pH POC ABG pCO2 POC ABG pO2 Sodium Potassium Chloride Carbon Dioxide BUN Creatinine Glucose POC Glucose 127 H 145 H 124 H Calcium Magnesium Direct Bilirubin AST ALT Alkaline Phosphatase Total Creatine Kinase CK-MB (CK-2) CK-MB (CK-2) Rel Index Troponin T C-Reactive Protein Total Protein Albumin Triglycerides Ur Specific [place] Urine WBC (Auto) Miscellaneous Test 05/07/17 05/07/17 05/08/17 11:17 17:14 00:03 WBC RBC Hgb Hct MCV MCH Plt Count Lymph % (Auto) [place] % (Auto) Eos % (Auto) Baso % (Auto) Lymph # Baso # Seg Neutrophils % Lymphocytes % (Manual) Monocytes % (Manual) Nucleated RBC % Seg Neutrophils # Seg Neutrophils # Man Monocytes # (Manual) PT INR Activated Clotting Time POC ABG pH POC ABG pCO2 POC ABG pO2 Sodium Potassium Chloride Carbon Dioxide BUN Creatinine Glucose POC Glucose 144 H 125 H 122 H Calcium Magnesium Direct Bilirubin AST ALT Alkaline Phosphatase Total Creatine Kinase CK-MB (CK-2) CK-MB (CK-2) Rel Index Troponin T C-Reactive Protein Total Protein Albumin Triglycerides Ur Specific [place] Urine WBC (Auto) Miscellaneous Test 05/08/17 05/08/17 05/08/17 05:43 12:07 18:02 WBC RBC Hgb Hct MCV MCH Plt Count Lymph % (Auto) [place] % (Auto) Eos % (Auto) Baso % (Auto) Lymph # Baso # Seg Neutrophils % Lymphocytes % (Manual) Monocytes % (Manual) Nucleated RBC % Seg Neutrophils # Seg Neutrophils # Man Monocytes # (Manual) PT INR Activated Clotting Time POC ABG pH POC ABG pCO2 POC ABG pO2 Sodium Potassium Chloride Carbon Dioxide BUN Creatinine Glucose POC Glucose 117 H 114 H 129 H Calcium Magnesium Direct Bilirubin AST ALT Alkaline Phosphatase Total Creatine Kinase CK-MB (CK-2) CK-MB (CK-2) Rel Index Troponin T C-Reactive Protein Total Protein Albumin Triglycerides Ur Specific [place] Urine WBC (Auto) Miscellaneous Test 05/08/17 05/09/17 05/09/17 23:53 04:19 05:14 WBC RBC Hgb Hct MCV MCH Plt Count Lymph % (Auto) [place] % (Auto) Eos % (Auto) Baso % (Auto) Lymph # Baso # Seg Neutrophils % Lymphocytes % (Manual) Monocytes % (Manual) Nucleated RBC % Seg Neutrophils # Seg Neutrophils # Man Monocytes # (Manual) PT INR Activated Clotting Time POC ABG pH 7.524 H POC ABG pCO2 34.7 L POC ABG pO2 107 H Sodium Potassium Chloride Carbon Dioxide BUN Creatinine Glucose POC Glucose 125 H 118 H Calcium Magnesium Direct Bilirubin AST ALT Alkaline Phosphatase Total Creatine Kinase CK-MB (CK-2) CK-MB (CK-2) Rel Index Troponin T C-Reactive Protein Total Protein Albumin Triglycerides Ur Specific [place] Urine WBC (Auto) Miscellaneous Test 05/10/17 05/11/17 05/11/17 23:54 05:48 23:50 WBC RBC Hgb Hct MCV MCH Plt Count Lymph % (Auto) [place] % (Auto) Eos % (Auto) Baso % (Auto) Lymph # Baso # Seg Neutrophils % Lymphocytes % (Manual) Monocytes % (Manual) Nucleated RBC % Seg Neutrophils # Seg Neutrophils # Man Monocytes # (Manual) PT INR Activated Clotting Time POC ABG pH POC ABG pCO2 POC ABG pO2 Sodium Potassium Chloride Carbon Dioxide BUN Creatinine Glucose POC Glucose 126 H 137 H 130 H Calcium Magnesium Direct Bilirubin AST ALT Alkaline Phosphatase Total Creatine Kinase CK-MB (CK-2) CK-MB (CK-2) Rel Index Troponin T C-Reactive Protein Total Protein Albumin Triglycerides Ur Specific [place] Urine WBC (Auto) Miscellaneous Test 05/12/17 05/12/17 05/12/17 05:48 11:33 18:00 WBC RBC Hgb Hct MCV MCH Plt Count Lymph % (Auto) [place] % (Auto) Eos % (Auto) Baso % (Auto) Lymph # Baso # Seg Neutrophils % Lymphocytes % (Manual) Monocytes % (Manual) Nucleated RBC % Seg Neutrophils # Seg Neutrophils # Man Monocytes # (Manual) PT INR Activated Clotting Time POC ABG pH POC ABG pCO2 POC ABG pO2 Sodium Potassium Chloride Carbon Dioxide BUN Creatinine Glucose POC Glucose 126 H 116 H 131 H Calcium Magnesium Direct Bilirubin AST ALT Alkaline Phosphatase Total Creatine Kinase CK-MB (CK-2) CK-MB (CK-2) Rel Index Troponin T C-Reactive Protein Total Protein Albumin Triglycerides Ur Specific [place] Urine WBC (Auto) Miscellaneous Test
[2017-05-14] MEDS: TRANSDERM-SCOP TD SCH (14:14)
--- NOTE | 2017-05-14 20:17 | Progress Note ---
Assessment and Plan Assessment and plan: --s/p cardiac arrest /anoxic encephalopathy/vegetative state -- acute hypoxic hypercapnic respiratory failure ; status post trach, vent dependent, --Acute anterior STEMI; status post PCI, --MRSA pneumonia/aspiration pneumonia, s/p full treatment, contact isolation --Hypertension; BP in the lower range. -- aspiration pneumonia; sepsis; received full course of antibiotics --Cardiogenic shock; off pressors, --s/p trach and PEG, continue PEG feeds --Severe Protein calorie malnutrition: Peg feeds and nutrition suppliments --DVT prophylaxis; Lovenox On the new on the current management --Full CODE STATUS Poor prognosis family aware, Had family meeting this morning with the program host and neurology Family has unrealistic expectations , requests to continue full CODE STATUS DC planning ; placement of LTAC versus SNF Very difficult to place, secondary to social issues History Interval history: Patient seen and evaluated medical records reviewed Clinically no change, Unresponsive Patient is encephalopathy, tracheostomy and vent dependent Awaiting placement, Multiple social issues Hospitalist Physical - Constitutional Vitals: Temp Pulse Resp BP Pulse Ox 98.8 F 76 18 104/65 97 05/14/17 16:00 05/14/17 19:30 05/14/17 19:30 05/14/17 19:30 05/14/17 19:30 General appearance: Present: no acute distress, well-nourished, other ( tracheostomy on vent) - EENT Eyes: Present: PERRL, EOM intact - Neck Neck: Present: supple, normal ROM - Respiratory Respiratory effort: normal Respiratory: bilateral: diminished, rhonchi - Cardiovascular Rhythm: regular Heart Sounds: Present: S1 & S2 - Extremities Extremities: no ischemia Extremity abnormal: edema - Abdominal General gastrointestinal: soft, non-tender, non-distended - Integumentary Integumentary: Present: clear, warm - Psychiatric Psychiatric: appropriate mood/affect, cooperative - Neurologic Neurologic: CNII-XII intact, moves all extremities Results - Labs CBC & Chem 7: 05/01/17 05:30 05/01/17 05:30 Labs: Laboratory Last Values WBC 7.8 K/mm3 (4.5-11.0) 05/01/17 05:30 RBC 3.49 M/mm3 (3.65-5.03) L 05/01/17 05:30 Hgb 10.3 gm/dl (11.8-15.2) L 05/01/17 05:30 Hct 31.9 % (35.5-45.6) L 05/01/17 05:30 MCV 92 fl (84-94) 05/01/17 05:30 MCH 30 pg (28-32) 05/01/17 05:30 MCHC 32 % (32-34) 05/01/17 05:30 RDW 15.1 % (13.2-15.2) 05/01/17 05:30 Plt Count 280 K/mm3 (140-440) 05/01/17 05:30 Lymph % (Auto) 17.7 % (13.4-35.0) 05/01/17 05:30 Kay % (Auto) 8.1 % (0.0-7.3) H 05/01/17 05:30 Eos % (Auto) 2.5 % (0.0-4.3) 05/01/17 05:30 Baso % (Auto) 0.4 % (0.0-1.8) 05/01/17 05:30 Lymph # 1.4 K/mm3 (1.2-5.4) 05/01/17 05:30 Kay # 0.6 K/mm3 (0.0-0.8) 05/01/17 05:30 Eos # 0.2 K/mm3 (0.0-0.4) 05/01/17 05:30 Baso # 0.0 K/mm3 (0.0-0.1) 05/01/17 05:30 Add Manual Diff Complete 03/30/17 03:50 Total Counted 100 03/30/17 03:50 Seg Neutrophils % 71.3 % (40.0-70.0) H 05/01/17 05:30 Seg Neuts % (Manual) 65.0 % (40.0-70.0) 03/30/17 03:50 Band Neutrophils % 17.0 % 03/30/17 03:50 Lymphocytes % (Manual) 7.0 % (13.4-35.0) L 03/30/17 03:50 Reactive Lymphs % (Man) 0 % 03/30/17 03:50 Monocytes % (Manual) 7.0 % (0.0-7.3) 03/30/17 03:50 Eosinophils % (Manual) 0 % (0.0-4.3) 03/30/17 03:50 Basophils % (Manual) 0 % (0.0-1.8) 03/30/17 03:50 Metamyelocytes % 4.0 % 03/30/17 03:50 Myelocytes % 0 % 03/30/17 03:50 Promyelocytes % 0 % 03/30/17 03:50 Blast Cells % 0 % 03/30/17 03:50 Nucleated RBC % Not Reportable 03/30/17 03:50 Seg Neutrophils # 5.6 K/mm3 (1.8-7.7) 05/01/17 05:30 Seg Neutrophils # Man 12.7 K/mm3 (1.8-7.7) H 03/30/17 03:50 Band Neutrophils # 3.3 K/mm3 03/30/17 03:50 Lymphocytes # (Manual) 1.4 K/mm3 (1.2-5.4) 03/30/17 03:50 Abs React Lymphs (Man) 0.0 K/mm3 03/30/17 03:50 Monocytes # (Manual) 1.4 K/mm3 (0.0-0.8) H 03/30/17 03:50 Eosinophils # (Manual) 0.0 K/mm3 (0.0-0.4) 03/30/17 03:50 Basophils # (Manual) 0.0 K/mm3 (0.0-0.1) 03/30/17 03:50 Metamyelocytes # 0.8 K/mm3 03/30/17 03:50 Myelocytes # 0.0 K/mm3 03/30/17 03:50 Promyelocytes # 0.0 K/mm3 03/30/17 03:50 Blast Cells # 0.0 K/mm3 03/30/17 03:50 WBC Morphology Not Reportable 03/30/17 03:50 Hypersegmented Neuts Not Reportable 03/30/17 03:50 Hyposegmented Neuts Not Reportable 03/30/17 03:50 Hypogranular Neuts Not Reportable 03/30/17 03:50 Smudge Cells Not Reportable 03/30/17 03:50 Toxic Granulation Not Reportable 03/30/17 03:50 Toxic Vacuolation Not Reportable 03/30/17 03:50 Dohle Bodies Not Reportable 03/30/17 03:50 Pelger-Huet Anomaly Not Reportable 03/30/17 03:50 Sherry Rods Not Reportable 03/30/17 03:50 Platelet Estimate Appears normal 03/30/17 03:50 Clumped Platelets Not Reportable 03/30/17 03:50 Plt Clumps, EDTA Not Reportable 03/30/17 03:50 Large Platelets Not Reportable 03/30/17 03:50 Giant Platelets Not Reportable 03/30/17 03:50 Platelet Satelliting Not Reportable 03/30/17 03:50 Plt Morphology Comment Not Reportable 03/30/17 03:50 RBC Morphology Not Reportable 03/30/17 03:50 Dimorphic RBCs Not Reportable 03/30/17 03:50 Polychromasia Not Reportable 03/30/17 03:50 Hypochromasia Not Reportable 03/30/17 03:50 Poikilocytosis Not Reportable 03/30/17 03:50 Anisocytosis Few 03/30/17 03:50 Microcytosis Not Reportable 03/30/17 03:50 Macrocytosis Not Reportable 03/30/17 03:50 Spherocytes Not Reportable 03/30/17 03:50 Pappenheimer Bodies Not Reportable 03/30/17 03:50 Sickle Cells Not Reportable 03/30/17 03:50 Target Cells Not Reportable 03/30/17 03:50 Tear Drop Cells Not Reportable 03/30/17 03:50 Ovalocytes Not Reportable 03/30/17 03:50 Helmet Cells Not Reportable 03/30/17 03:50 [place] Bodies Not Reportable 03/30/17 03:50 Kegley Rings Not Reportable 03/30/17 03:50 Nusrat Cells Not Reportable 03/30/17 03:50 Bite Cells Not Reportable 03/30/17 03:50 Crenated Cell Not Reportable 03/30/17 03:50 Elliptocytes Not Reportable 03/30/17 03:50 Acanthocytes (Spur) Not Reportable 03/30/17 03:50 Rouleaux Not Reportable 03/30/17 03:50 Hemoglobin C Crystals Not Reportable 03/30/17 03:50 Schistocytes Not Reportable 03/30/17 03:50 Malaria parasites Not Reportable 03/30/17 03:50 Jermaine Bodies Not Reportable 03/30/17 03:50 Hem Pathologist Commnt No 03/30/17 03:50 PT 14.9 Sec. (12.2-14.9) 04/10/17 04:16 INR 1.11 (0.87-1.13) 04/10/17 04:16 APTT 27.8 Sec. (24.2-36.6) 04/10/17 04:16 Activated Clotting Time 92 (74-137) 03/29/17 17:47 POC ABG pH 7.524 (7.35-7.45) H 05/09/17 04:19 POC ABG pCO2 34.7 (35-45) L 05/09/17 04:19 POC ABG pO2 107 (80-105) H 05/09/17 04:19 POC ABG HCO3 28.6 05/09/17 04:19 POC ABG Total CO2 30 05/09/17 04:19 POC ABG O2 Sat 99 05/09/17 04:19 POC ABG Base Excess 6 05/09/17 04:19 FiO2 25 % 05/09/17 04:19 Sodium 136 mmol/L (137-145) L 05/01/17 05:30 Potassium 3.9 mmol/L (3.6-5.0) 05/01/17 05:30 Chloride 97.6 mmol/L (98-107) L 05/01/17 05:30 Carbon Dioxide 25 mmol/L (22-30) 05/01/17 05:30 Anion Gap 17 mmol/L 05/01/17 05:30 BUN 16 mg/dL (9-20) 05/01/17 05:30 Creatinine 0.2 mg/dL (0.8-1.5) L 05/01/17 05:30 Estimated GFR > 60 ml/min 05/01/17 05:30 BUN/Creatinine Ratio 80 % 05/01/17 05:30 Glucose 123 mg/dL (75-100) H 05/01/17 05:30 POC Glucose 123 (70-105) H 05/14/17 11:45 Calcium 8.9 mg/dL (8.4-10.2) 05/01/17 05:30 Phosphorus 3.50 mg/dL (2.5-4.5) 04/13/17 04:45 Magnesium 1.80 mg/dL (1.7-2.3) 05/01/17 05:30 Total Bilirubin 0.60 mg/dL (0.1-1.2) 05/01/17 05:30 Direct Bilirubin < 0.2 mg/dL (0-0.2) 04/27/17 05:40 Indirect Bilirubin 0.3 mg/dL 04/25/17 04:51 AST 71 units/L (5-40) H 05/01/17 05:30 ALT 125 units/L (7-56) H 05/01/17 05:30 Alkaline Phosphatase 158 units/L (35-129) H 05/01/17 05:30 Total Creatine Kinase 1404 units/L (55-170) H 04/12/17 21:36 CK-MB (CK-2) 8.0 ng/mL (0.0-4.0) H 04/12/17 21:36 CK-MB (CK-2) Rel Index 0.5 (0-4) 04/12/17 21:36 Troponin T 0.767 ng/mL (0.00-0.029) H* 04/12/17 21:36 C-Reactive Protein 21.80 mg/dL (0.00-1.30) H 03/30/17 16:04 Total Protein 6.7 g/dL (6.3-8.2) 05/01/17 05:30 Albumin 2.6 g/dL (3.9-5) L 05/01/17 05:30 Albumin/Globulin Ratio 0.6 % 05/01/17 05:30 Triglycerides 151 mg/dL (2-149) H 04/01/17 04:29 Cholesterol 164 mg/dL (50-199) 03/29/17 19:52 LDL Cholesterol Direct 81 mg/dL (50-130) 03/29/17 19:52 HDL Cholesterol 44 mg/dL (40-59) 03/29/17 19:52 Cholesterol/HDL Ratio 3.72 % 03/29/17 19:52 Urine Color [place] (Yellow) 04/21/17 22:00 Urine Turbidity Clear (Clear) 04/21/17 22:00 Urine pH 5.0 (5.0-7.0) 04/21/17 22:00 Ur Specific [place] 1.029 (1.003-1.030) 04/21/17 22:00 Urine Protein 30 mg/dl mg/dL (Negative) 04/21/17 22:00 Urine Glucose (UA) Neg mg/dL (Negative) 04/21/17 22:00 Urine Ketones Neg mg/dL (Negative) 04/21/17 22:00 Urine Blood Mod (Negative) 04/21/17 22:00 Urine Nitrite Neg (Negative) 04/21/17 22:00 Urine Bilirubin Neg (Negative) 04/21/17 22:00 Urine Urobilinogen 4.0 mg/dL (<2.0) 04/21/17 22:00 Ur Leukocyte Esterase Neg (Negative) 04/21/17 22:00 Urine WBC (Auto) 10.0 /HPF (0.0-6.0) H 04/21/17 22:00 Urine RBC (Auto) 44.0 /HPF (0.0-6.0) 04/21/17 22:00 U Epithel Cells (Auto) < 1.0 /HPF (0-13.0) 04/21/17 22:00 Amorphous Crystals 1+ 03/30/17 09:45 Urine Mucus 3+ /HPF 04/21/17 22:00 Urine Opiates Screen Presumptive negative 03/30/17 09:45 Urine Methadone Screen Presumptive negative 03/30/17 09:45 Ur Barbiturates Screen Presumptive negative 03/30/17 09:45 Ur Phencyclidine Scrn Presumptive negative 03/30/17 09:45 Ur Amphetamines Screen Presumptive positive 03/30/17 09:45 U Benzodiazepines Scrn Presumptive positive 03/30/17 09:45 Urine Cocaine Screen Presumptive negative 03/30/17 09:45 U Marijuana (THC) Screen Presumptive negative 03/30/17 09:45 Drugs of Abuse Note Disclamer 03/30/17 09:45 Miscellaneous Test Flexitest 1 H 04/25/17 07:07 Blood Type O POSITIVE 03/29/17 11:35 Antibody Screen Negative 03/29/17 11:35
[2017-05-15] MEDS: LOPRESSOR PO SCH ×2 (06:18→12:00)
[2017-05-15] MEDS: ELIQUIS PO SCH (12:00)
[2017-05-15] MEDS: PLAVIX PO SCH (12:00)
[2017-05-15] MEDS: PROTONIX FEEDTUBE SCH (12:00)
[2017-05-15] MEDS: ASPIRIN PO SCH (12:00)
[2017-05-15] MEDS: CORDARONE PO SCH (14:58)
[2017-05-15] MEDS: ZESTRIL PO SCH (15:01)
--- NOTE | 2017-05-15 16:10 | Progress Note ---
Assessment and Plan Imp: 1. s/p CP arrest 2. Anoxic enceph. 3. Acute respiratory failure, hypoxia 4. s/p Trach/PEG 5. Hypernatremia 6. STEMI/ICMP 7. UTI Rec: 1. PSV 24 hours if able, then Tpiece soon 2. Plavix 3. TFs, DVT/GI PPx 4. Repeat CXR 5. Dismal prognosis and bad outcome is expected as explained by neurology and Dr. Ham (see previous notes); they have unrealistic expectations and thus he remains full support/full code 6. Complex patient No family present today Subjective Date of service: 05/15/17 Principal diagnosis: coma,ARV,s/p arrest Interval history: No events. Eyes open but unresponsive. Tolerating PSV 02/28. Cannot give history. Active Medications Albuterol (Proventil) 2.5 mg IH Q3HRT PRN PRN Reason: Shortness Of Breath Last Admin: 04/13/17 21:25 Dose: 2.5 mg Amiodarone HCl (Cordarone) 200 mg PO BID COUNTS INCLUDE 234 BEDS AT THE [facility] Last Admin: 05/15/17 14:58 Dose: Not Given Apixaban (Eliquis) 5 mg PO Q12HR COUNTS INCLUDE 234 BEDS AT THE [facility] PRN Reason: Protocol Last Admin: 05/15/17 12:00 Dose: 5 mg Aspirin (Aspirin) 325 mg PO QDAY COUNTS INCLUDE 234 BEDS AT THE [facility] Last Admin: 05/15/17 12:00 Dose: 325 mg Atorvastatin Calcium (Lipitor) 20 mg PO QHS COUNTS INCLUDE 234 BEDS AT THE [facility] Last Admin: 05/14/17 23:05 Dose: 20 mg Clopidogrel Bisulfate (Plavix) 75 mg PO QDAY COUNTS INCLUDE 234 BEDS AT THE [facility] Last Admin: 05/15/17 12:00 Dose: 75 mg Dextrose (D50w (25gm) Syringe) 50 ml IV PRN PRN PRN Reason: Hypoglycemia Hydrophilic Ointment (Vaseline Lip Therapy) 1 applic TP Q2HR PRN PRN Reason: Dry Lips Last Admin: 05/01/17 00:35 Dose: 1 applic Lisinopril (Zestril) 2.5 mg PO QDAY COUNTS INCLUDE 234 BEDS AT THE [facility] Last Admin: 05/15/17 15:01 Dose: Not Given Metoprolol Tartrate (Lopressor) 2.5 mg IV Q4HR PRN PRN Reason: HR>130 Last Admin: 04/09/17 19:41 Dose: 2.5 mg Metoprolol Tartrate (Lopressor) 12.5 mg PO BID COUNTS INCLUDE 234 BEDS AT THE [facility] Last Admin: 05/15/17 12:00 Dose: Not Given Multi-Ingred Cream/Lotion/Oil/Oint (Artificial Tears Ophth Oint) 1 applic OU Q4HR PRN PRN Reason: Dry Eye(s) Last Admin: 03/31/17 22:51 Dose: 1 applic Pantoprazole (Protonix) 40 mg FEEDTUBE DAILY COUNTS INCLUDE 234 BEDS AT THE [facility] Last Admin: 05/15/17 12:00 Dose: 40 mg Scopolamine (Transderm-Scop) 1 each TD Q3D COUNTS INCLUDE 234 BEDS AT THE [facility] Last Admin: 05/14/17 14:14 Dose: 1 each Zolpidem Tartrate (Ambien) 10 mg PO QHS PRN PRN Reason: Insomnia Objective Vital Signs - 12hr 05/15/17 05/15/17 05/15/17 04:30 05:00 05:30 Temperature Pulse Rate 86 76 77 Respiratory 18 17 18 Rate Blood Pressure 111/78 93/59 93/59 O2 Sat by Pulse 100 100 100 Oximetry O2 Sat by Pulse Oximetry [ Assessment] 05/15/17 05/15/17 05/15/17 06:00 06:18 06:30 Temperature Pulse Rate 76 71 76 Respiratory 18 17 Rate Blood Pressure 85/51 93/61 93/59 O2 Sat by Pulse 100 100 Oximetry O2 Sat by Pulse Oximetry [ Assessment] 05/15/17 05/15/17 05/15/17 07:00 07:23 07:30 Temperature Pulse Rate 75 75 81 Respiratory 18 13 Rate Blood Pressure 89/56 89/56 89/56 O2 Sat by Pulse 100 100 Oximetry O2 Sat by Pulse Oximetry [ Assessment] 05/15/17 05/15/17 05/15/17 08:00 08:30 08:51 Temperature 98.7 F Pulse Rate 75 75 Respiratory 18 16 4 L Rate Blood Pressure 89/53 89/53 O2 Sat by Pulse 100 Oximetry O2 Sat by Pulse Oximetry [ Assessment] 05/15/17 05/15/17 05/15/17 09:00 09:52 11:58 Temperature 98.3 F Pulse Rate 78 Respiratory 16 Rate Blood Pressure 86/55 O2 Sat by Pulse 99 Oximetry O2 Sat by Pulse 100 Oximetry [ Assessment] 05/15/17 05/15/17 05/15/17 15:45 15:56 16:00 Temperature 98.0 F Pulse Rate 79 Respiratory Rate Blood Pressure 87/55 O2 Sat by Pulse 100 Oximetry O2 Sat by Pulse 100 Oximetry [ Assessment] Constitutional: no acute distress, comatose Eyes: non-icteric ENT: oropharynx moist Neck: supple, other (tracheotomy ) Effort: normal Ascultation: Bilateral: clear Percussion: Bilateral: not dull Cardiovascular: regular rate and rhythm Gastrointestinal: normoactive bowel sounds, soft, non-tender, non-distended Integumentary: normal Extremities: no cyanosis, no edema, pink and warm Neurologic: other (nonresponsive with flaccid extremities) Psychiatric: other (eyes open spontaneously but does not follow any voice commands, otherwise nonresponsive except for pain) CBC and BMP: 05/01/17 05:30 05/01/17 05:30 ABG, PT/INR, D-dimer: ABG POC ABG pH 7.524 (7.35-7.45) H 05/09/17 04:19 POC ABG pCO2 34.7 (35-45) L 05/09/17 04:19 POC ABG pO2 107 (80-105) H 05/09/17 04:19 POC ABG HCO3 28.6 05/09/17 04:19 POC ABG Total CO2 30 05/09/17 04:19 POC ABG O2 Sat 99 05/09/17 04:19 PT/INR, D-dimer PT 14.9 Sec. (12.2-14.9) 04/10/17 04:16 INR 1.11 (0.87-1.13) 04/10/17 04:16 Abnormal lab findings: Abnormal Labs 03/29/17 03/29/17 03/29/17 11:35 11:35 11:40 WBC RBC Hgb Hct MCV 98 H MCH 33 H Plt Count Lymph % (Auto) [place] % (Auto) Eos % (Auto) Baso % (Auto) Lymph # Baso # Seg Neutrophils % Lymphocytes % (Manual) Monocytes % (Manual) 9.0 H Nucleated RBC % 1.0 H Seg Neutrophils # Seg Neutrophils # Man Monocytes # (Manual) 0.9 H PT 15.8 H INR 1.20 H Activated Clotting Time POC ABG pH POC ABG pCO2 POC ABG pO2 Sodium Potassium 2.7 L* Chloride 95.3 L Carbon Dioxide 17 L BUN Creatinine Glucose 435 H POC Glucose Calcium Magnesium Direct Bilirubin AST ALT Alkaline Phosphatase Total Creatine Kinase CK-MB (CK-2) CK-MB (CK-2) Rel Index Troponin T C-Reactive Protein Total Protein 6.1 L Albumin 3.5 L Triglycerides Ur Specific [place] Urine WBC (Auto) Miscellaneous Test 03/29/17 03/29/17 03/29/17 12:34 13:10 13:25 WBC RBC Hgb Hct MCV MCH Plt Count Lymph % (Auto) [place] % (Auto) Eos % (Auto) Baso % (Auto) Lymph # Baso # Seg Neutrophils % Lymphocytes % (Manual) Monocytes % (Manual) Nucleated RBC % Seg Neutrophils # Seg Neutrophils # Man Monocytes # (Manual) PT INR Activated Clotting Time 142 H 169 H 175 H POC ABG pH POC ABG pCO2 POC ABG pO2 Sodium Potassium Chloride Carbon Dioxide BUN Creatinine Glucose POC Glucose Calcium Magnesium Direct Bilirubin AST ALT Alkaline Phosphatase Total Creatine Kinase CK-MB (CK-2) CK-MB (CK-2) Rel Index Troponin T C-Reactive Protein Total Protein Albumin Triglycerides Ur Specific [place] Urine WBC (Auto) Miscellaneous Test 03/29/17 03/29/17 03/29/17 14:50 15:18 19:52 WBC RBC Hgb Hct MCV MCH Plt Count Lymph % (Auto) [place] % (Auto) Eos % (Auto) Baso % (Auto) Lymph # Baso # Seg Neutrophils % Lymphocytes % (Manual) Monocytes % (Manual) Nucleated RBC % Seg Neutrophils # Seg Neutrophils # Man Monocytes # (Manual) PT INR Activated Clotting Time 175 H POC ABG pH 7.293 L POC ABG pCO2 POC ABG pO2 602 H Sodium Potassium Chloride Carbon Dioxide BUN Creatinine Glucose POC Glucose Calcium Magnesium Direct Bilirubin AST ALT Alkaline Phosphatase Total Creatine Kinase 7263 H CK-MB (CK-2) > 300.0 H CK-MB (CK-2) Rel Index 4.1 H Troponin T 8.080 H* D C-Reactive Protein Total Protein Albumin Triglycerides 195 H Ur Specific [place] Urine WBC (Auto) Miscellaneous Test 03/30/17 03/30/17 03/30/17 03:50 03:50 06:19 WBC 19.5 H RBC Hgb Hct MCV MCH Plt Count Lymph % (Auto) [place] % (Auto) Eos % (Auto) Baso % (Auto) Lymph # Baso # Seg Neutrophils % Lymphocytes % (Manual) 7.0 L Monocytes % (Manual) Nucleated RBC % Seg Neutrophils # Seg Neutrophils # Man 12.7 H Monocytes # (Manual) 1.4 H PT INR Activated Clotting Time POC ABG pH POC ABG pCO2 28.2 L POC ABG pO2 108 H Sodium Potassium Chloride 108.9 H Carbon Dioxide 15 L BUN 25 H Creatinine Glucose 158 H POC Glucose Calcium 8.1 L Magnesium Direct Bilirubin AST ALT Alkaline Phosphatase Total Creatine Kinase 7963 H CK-MB (CK-2) > 300.0 H CK-MB (CK-2) Rel Index Troponin T 6.850 H* C-Reactive Protein Total Protein Albumin Triglycerides Ur Specific [place] Urine WBC (Auto) Miscellaneous Test 03/30/17 03/30/17 03/31/17 09:45 16:04 02:19 WBC RBC Hgb Hct MCV MCH Plt Count Lymph % (Auto) [place] % (Auto) Eos % (Auto) Baso % (Auto) Lymph # Baso # Seg Neutrophils % Lymphocytes % (Manual) Monocytes % (Manual) Nucleated RBC % Seg Neutrophils # Seg Neutrophils # Man Monocytes # (Manual) PT INR Activated Clotting Time POC ABG pH POC ABG pCO2 POC ABG pO2 Sodium Potassium Chloride Carbon Dioxide BUN Creatinine Glucose POC Glucose 137 H Calcium Magnesium Direct Bilirubin AST ALT Alkaline Phosphatase Total Creatine Kinase CK-MB (CK-2) CK-MB (CK-2) Rel Index Troponin T C-Reactive Protein 21.80 H Total Protein Albumin Triglycerides Ur Specific [place] 1.031 H Urine WBC (Auto) Miscellaneous Test 03/31/17 03/31/17 03/31/17 03:57 06:54 09:22 WBC RBC Hgb Hct MCV MCH Plt Count Lymph % (Auto) [place] % (Auto) Eos % (Auto) Baso % (Auto) Lymph # Baso # Seg Neutrophils % Lymphocytes % (Manual) Monocytes % (Manual) Nucleated RBC % Seg Neutrophils # Seg Neutrophils # Man Monocytes # (Manual) PT INR Activated Clotting Time POC ABG pH 7.475 H POC ABG pCO2 25.4 L POC ABG pO2 62 L Sodium Potassium Chloride Carbon Dioxide 19 L BUN 22 H Creatinine 0.6 L Glucose 148 H POC Glucose 143 H Calcium 8.3 L Magnesium Direct Bilirubin AST ALT Alkaline Phosphatase Total Creatine Kinase CK-MB (CK-2) CK-MB (CK-2) Rel Index Troponin T C-Reactive Protein Total Protein Albumin Triglycerides Ur Specific [place] Urine WBC (Auto) Miscellaneous Test 03/31/17 03/31/17 03/31/17 11:40 17:47 23:38 WBC RBC Hgb Hct MCV MCH Plt Count Lymph % (Auto) [place] % (Auto) Eos % (Auto) Baso % (Auto) Lymph # Baso # Seg Neutrophils % Lymphocytes % (Manual) Monocytes % (Manual) Nucleated RBC % Seg Neutrophils # Seg Neutrophils # Man Monocytes # (Manual) PT INR Activated Clotting Time POC ABG pH POC ABG pCO2 POC ABG pO2 Sodium Potassium Chloride Carbon Dioxide BUN Creatinine Glucose POC Glucose 127 H 137 H 148 H Calcium Magnesium Direct Bilirubin AST ALT Alkaline Phosphatase Total Creatine Kinase CK-MB (CK-2) CK-MB (CK-2) Rel Index Troponin T C-Reactive Protein Total Protein Albumin Triglycerides Ur Specific [place] Urine WBC (Auto) Miscellaneous Test 04/01/17 04/01/17 04/01/17 04:29 05:01 11:54 WBC RBC Hgb Hct MCV MCH Plt Count Lymph % (Auto) [place] % (Auto) Eos % (Auto) Baso % (Auto) Lymph # Baso # Seg Neutrophils % Lymphocytes % (Manual) Monocytes % (Manual) Nucleated RBC % Seg Neutrophils # Seg Neutrophils # Man Monocytes # (Manual) PT INR Activated Clotting Time POC ABG pH 7.513 H POC ABG pCO2 22.1 L POC ABG pO2 64 L Sodium Potassium Chloride Carbon Dioxide BUN Creatinine Glucose POC Glucose 121 H Calcium Magnesium Direct Bilirubin AST ALT Alkaline Phosphatase Total Creatine Kinase CK-MB (CK-2) CK-MB (CK-2) Rel Index Troponin T C-Reactive Protein Total Protein Albumin Triglycerides 151 H Ur Specific [place] Urine WBC (Auto) Miscellaneous Test 04/01/17 04/02/17 04/02/17 18:17 00:11 04:52 WBC RBC Hgb Hct MCV MCH Plt Count Lymph % (Auto) [place] % (Auto) Eos % (Auto) Baso % (Auto) Lymph # Baso # Seg Neutrophils % Lymphocytes % (Manual) Monocytes % (Manual) Nucleated RBC % Seg Neutrophils # Seg Neutrophils # Man Monocytes # (Manual) PT INR Activated Clotting Time POC ABG pH 7.524 H POC ABG pCO2 25.5 L POC ABG pO2 66 L Sodium Potassium Chloride Carbon Dioxide BUN Creatinine Glucose POC Glucose 117 H 122 H Calcium Magnesium Direct Bilirubin AST ALT Alkaline Phosphatase Total Creatine Kinase CK-MB (CK-2) CK-MB (CK-2) Rel Index Troponin T C-Reactive Protein Total Protein Albumin Triglycerides Ur Specific [place] Urine WBC (Auto) Miscellaneous Test 04/02/17 04/02/17 04/02/17 05:18 10:41 12:19 WBC RBC Hgb Hct MCV MCH Plt Count Lymph % (Auto) [place] % (Auto) Eos % (Auto) Baso % (Auto) Lymph # Baso # Seg Neutrophils % Lymphocytes % (Manual) Monocytes % (Manual) Nucleated RBC % Seg Neutrophils # Seg Neutrophils # Man Monocytes # (Manual) PT INR Activated Clotting Time POC ABG pH 7.534 H POC ABG pCO2 27.4 L POC ABG pO2 Sodium Potassium Chloride Carbon Dioxide BUN Creatinine Glucose POC Glucose 132 H 129 H Calcium Magnesium Direct Bilirubin AST ALT Alkaline Phosphatase Total Creatine Kinase CK-MB (CK-2) CK-MB (CK-2) Rel Index Troponin T C-Reactive Protein Total Protein Albumin Triglycerides Ur Specific [place] Urine WBC (Auto) Miscellaneous Test 04/02/17 04/03/17 04/03/17 18:05 00:08 05:09 WBC RBC Hgb Hct MCV MCH Plt Count Lymph % (Auto) [place] % (Auto) Eos % (Auto) Baso % (Auto) Lymph # Baso # Seg Neutrophils % Lymphocytes % (Manual) Monocytes % (Manual) Nucleated RBC % Seg Neutrophils # Seg Neutrophils # Man Monocytes # (Manual) PT INR Activated Clotting Time POC ABG pH 7.455 H POC ABG pCO2 33.2 L POC ABG pO2 120 H Sodium Potassium Chloride Carbon Dioxide BUN Creatinine Glucose POC Glucose 136 H 128 H Calcium Magnesium Direct Bilirubin AST ALT Alkaline Phosphatase Total Creatine Kinase CK-MB (CK-2) CK-MB (CK-2) Rel Index Troponin T C-Reactive Protein Total Protein Albumin Triglycerides Ur Specific [place] Urine WBC (Auto) Miscellaneous Test 04/03/17 04/03/17 04/03/17 06:32 11:54 12:16 WBC 11.9 H RBC Hgb Hct MCV MCH Plt Count 125 L Lymph % (Auto) 4.8 L [place] % (Auto) Eos % (Auto) Baso % (Auto) Lymph # 0.6 L Baso # Seg Neutrophils % 86.7 H Lymphocytes % (Manual) Monocytes % (Manual) Nucleated RBC % Seg Neutrophils # 10.3 H Seg Neutrophils # Man Monocytes # (Manual) PT INR Activated Clotting Time POC ABG pH POC ABG pCO2 POC ABG pO2 Sodium Potassium Chloride Carbon Dioxide BUN Creatinine Glucose POC Glucose 138 H 143 H Calcium Magnesium Direct Bilirubin AST ALT Alkaline Phosphatase Total Creatine Kinase CK-MB (CK-2) CK-MB (CK-2) Rel Index Troponin T C-Reactive Protein Total Protein Albumin Triglycerides Ur Specific [place] Urine WBC (Auto) Miscellaneous Test 04/03/17 04/03/17 04/04/17 17:33 23:59 04:34 WBC RBC Hgb Hct MCV MCH Plt Count Lymph % (Auto) [place] % (Auto) Eos % (Auto) Baso % (Auto) Lymph # Baso # Seg Neutrophils % Lymphocytes % (Manual) Monocytes % (Manual) Nucleated RBC % Seg Neutrophils # Seg Neutrophils # Man Monocytes # (Manual) PT INR Activated Clotting Time POC ABG pH 7.457 H POC ABG pCO2 29.8 L POC ABG pO2 76 L Sodium Potassium Chloride Carbon Dioxide BUN Creatinine Glucose POC Glucose 130 H 155 H Calcium Magnesium Direct Bilirubin AST ALT Alkaline Phosphatase Total Creatine Kinase CK-MB (CK-2) CK-MB (CK-2) Rel Index Troponin T C-Reactive Protein Total Protein Albumin Triglycerides Ur Specific [place] Urine WBC (Auto) Miscellaneous Test 04/04/17 04/04/17 04/04/17 05:27 12:22 18:18 WBC RBC Hgb Hct MCV MCH Plt Count Lymph % (Auto) [place] % (Auto) Eos % (Auto) Baso % (Auto) Lymph # Baso # Seg Neutrophils % Lymphocytes % (Manual) Monocytes % (Manual) Nucleated RBC % Seg Neutrophils # Seg Neutrophils # Man Monocytes # (Manual) PT INR Activated Clotting Time POC ABG pH POC ABG pCO2 POC ABG pO2 Sodium Potassium Chloride Carbon Dioxide BUN Creatinine Glucose POC Glucose 164 H 146 H 130 H Calcium Magnesium Direct Bilirubin AST ALT Alkaline Phosphatase Total Creatine Kinase CK-MB (CK-2) CK-MB (CK-2) Rel Index Troponin T C-Reactive Protein Total Protein Albumin Triglycerides Ur Specific [place] Urine WBC (Auto) Miscellaneous Test 04/05/17 04/05/17 04/05/17 04:43 05:28 11:36 WBC RBC Hgb Hct MCV MCH Plt Count Lymph % (Auto) [place] % (Auto) Eos % (Auto) Baso % (Auto) Lymph # Baso # Seg Neutrophils % Lymphocytes % (Manual) Monocytes % (Manual) Nucleated RBC % Seg Neutrophils # Seg Neutrophils # Man Monocytes # (Manual) PT INR Activated Clotting Time POC ABG pH 7.479 H POC ABG pCO2 33.5 L POC ABG pO2 76 L Sodium Potassium Chloride Carbon Dioxide BUN Creatinine Glucose POC Glucose 145 H 136 H Calcium Magnesium Direct Bilirubin AST ALT Alkaline Phosphatase Total Creatine Kinase CK-MB (CK-2) CK-MB (CK-2) Rel Index Troponin T C-Reactive Protein Total Protein Albumin Triglycerides Ur Specific [place] Urine WBC (Auto) Miscellaneous Test 04/05/17 04/06/17 04/06/17 17:58 00:16 05:26 WBC RBC Hgb Hct MCV MCH Plt Count Lymph % (Auto) [place] % (Auto) Eos % (Auto) Baso % (Auto) Lymph # Baso # Seg Neutrophils % Lymphocytes % (Manual) Monocytes % (Manual) Nucleated RBC % Seg Neutrophils # Seg Neutrophils # Man Monocytes # (Manual) PT INR Activated Clotting Time POC ABG pH POC ABG pCO2 POC ABG pO2 Sodium Potassium Chloride Carbon Dioxide BUN Creatinine Glucose POC Glucose 130 H 159 H 146 H Calcium Magnesium Direct Bilirubin AST ALT Alkaline Phosphatase Total Creatine Kinase CK-MB (CK-2) CK-MB (CK-2) Rel Index Troponin T C-Reactive Protein Total Protein Albumin Triglycerides Ur Specific [place] Urine WBC (Auto) Miscellaneous Test 04/06/17 04/06/17 04/07/17 13:11 16:54 11:45 WBC RBC Hgb Hct MCV MCH Plt Count Lymph % (Auto) [place] % (Auto) Eos % (Auto) Baso % (Auto) Lymph # Baso # Seg Neutrophils % Lymphocytes % (Manual) Monocytes % (Manual) Nucleated RBC % Seg Neutrophils # Seg Neutrophils # Man Monocytes # (Manual) PT INR Activated Clotting Time POC ABG pH 7.517 H POC ABG pCO2 32.1 L POC ABG pO2 Sodium Potassium Chloride Carbon Dioxide BUN Creatinine Glucose POC Glucose 132 H 123 H Calcium Magnesium Direct Bilirubin AST ALT Alkaline Phosphatase Total Creatine Kinase CK-MB (CK-2) CK-MB (CK-2) Rel Index Troponin T C-Reactive Protein Total Protein Albumin Triglycerides Ur Specific [place] Urine WBC (Auto) Miscellaneous Test 04/07/17 04/07/17 04/07/17 12:51 17:40 23:55 WBC RBC Hgb Hct MCV MCH Plt Count Lymph % (Auto) [place] % (Auto) Eos % (Auto) Baso % (Auto) Lymph # Baso # Seg Neutrophils % Lymphocytes % (Manual) Monocytes % (Manual) Nucleated RBC % Seg Neutrophils # Seg Neutrophils # Man Monocytes # (Manual) PT INR Activated Clotting Time POC ABG pH POC ABG pCO2 POC ABG pO2 Sodium Potassium Chloride Carbon Dioxide BUN Creatinine Glucose POC Glucose 138 H 154 H 143 H Calcium Magnesium Direct Bilirubin AST ALT Alkaline Phosphatase Total Creatine Kinase CK-MB (CK-2) CK-MB (CK-2) Rel Index Troponin T C-Reactive Protein Total Protein Albumin Triglycerides Ur Specific [place] Urine WBC (Auto) Miscellaneous Test 04/08/17 04/08/17 04/08/17 05:27 11:14 17:44 WBC RBC Hgb Hct MCV MCH Plt Count Lymph % (Auto) [place] % (Auto) Eos % (Auto) Baso % (Auto) Lymph # Baso # Seg Neutrophils % Lymphocytes % (Manual) Monocytes % (Manual) Nucleated RBC % Seg Neutrophils # Seg Neutrophils # Man Monocytes # (Manual) PT INR Activated Clotting Time POC ABG pH POC ABG pCO2 POC ABG pO2 Sodium Potassium Chloride Carbon Dioxide BUN Creatinine Glucose POC Glucose 142 H 153 H 129 H Calcium Magnesium Direct Bilirubin AST ALT Alkaline Phosphatase Total Creatine Kinase CK-MB (CK-2) CK-MB (CK-2) Rel Index Troponin T C-Reactive Protein Total Protein Albumin Triglycerides Ur Specific [place] Urine WBC (Auto) Miscellaneous Test 04/09/17 04/09/17 04/09/17 08:20 11:21 17:37 WBC RBC Hgb Hct MCV MCH Plt Count Lymph % (Auto) [place] % (Auto) Eos % (Auto) Baso % (Auto) Lymph # Baso # Seg Neutrophils % Lymphocytes % (Manual) Monocytes % (Manual) Nucleated RBC % Seg Neutrophils # Seg Neutrophils # Man Monocytes # (Manual) PT INR Activated Clotting Time POC ABG pH POC ABG pCO2 POC ABG pO2 Sodium 147 H Potassium Chloride 108.8 H Carbon Dioxide BUN 39 H Creatinine 0.5 L Glucose 138 H POC Glucose 152 H 109 H Calcium Magnesium Direct Bilirubin AST ALT Alkaline Phosphatase Total Creatine Kinase CK-MB (CK-2) CK-MB (CK-2) Rel Index Troponin T C-Reactive Protein Total Protein Albumin Triglycerides Ur Specific [place] Urine WBC (Auto) Miscellaneous Test 01/04/10/17 04/10/17 00:13 04:16 04:16 WBC RBC Hgb 11.5 L Hct MCV 96 H MCH Plt Count 103 L Lymph % (Auto) 11.1 L [place] % (Auto) Eos % (Auto) Baso % (Auto) Lymph # Baso # Seg Neutrophils % 81.5 H Lymphocytes % (Manual) Monocytes % (Manual) Nucleated RBC % Seg Neutrophils # 8.8 H Seg Neutrophils # Man Monocytes # (Manual) PT INR Activated Clotting Time POC ABG pH POC ABG pCO2 POC ABG pO2 Sodium 148 H Potassium Chloride 109.0 H Carbon Dioxide BUN 36 H Creatinine 0.5 L Glucose 131 H POC Glucose 127 H Calcium 8.1 L Magnesium 2.40 H Direct Bilirubin AST 206 H ALT 228 H Alkaline Phosphatase 178 H Total Creatine Kinase CK-MB (CK-2) CK-MB (CK-2) Rel Index Troponin T C-Reactive Protein Total Protein Albumin 2.8 L Triglycerides Ur Specific [place] Urine WBC (Auto) Miscellaneous Test 04/10/17 04/10/17 04/10/17 06:01 11:57 18:27 WBC RBC Hgb Hct MCV MCH Plt Count Lymph % (Auto) [place] % (Auto) Eos % (Auto) Baso % (Auto) Lymph # Baso # Seg Neutrophils % Lymphocytes % (Manual) Monocytes % (Manual) Nucleated RBC % Seg Neutrophils # Seg Neutrophils # Man Monocytes # (Manual) PT INR Activated Clotting Time POC ABG pH POC ABG pCO2 POC ABG pO2 Sodium Potassium Chloride Carbon Dioxide BUN Creatinine Glucose POC Glucose 108 H 154 H 130 H Calcium Magnesium Direct Bilirubin AST ALT Alkaline Phosphatase Total Creatine Kinase CK-MB (CK-2) CK-MB (CK-2) Rel Index Troponin T C-Reactive Protein Total Protein Albumin Triglycerides Ur Specific [place] Urine WBC (Auto) Miscellaneous Test 04/11/17 04/11/17 04/12/17 12:25 17:10 00:22 WBC RBC Hgb Hct MCV MCH Plt Count Lymph % (Auto) [place] % (Auto) Eos % (Auto) Baso % (Auto) Lymph # Baso # Seg Neutrophils % Lymphocytes % (Manual) Monocytes % (Manual) Nucleated RBC % Seg Neutrophils # Seg Neutrophils # Man Monocytes # (Manual) PT INR Activated Clotting Time POC ABG pH POC ABG pCO2 POC ABG pO2 Sodium Potassium Chloride Carbon Dioxide BUN Creatinine Glucose POC Glucose 107 H 129 H 128 H Calcium Magnesium Direct Bilirubin AST ALT Alkaline Phosphatase Total Creatine Kinase CK-MB (CK-2) CK-MB (CK-2) Rel Index Troponin T C-Reactive Protein Total Protein Albumin Triglycerides Ur Specific [place] Urine WBC (Auto) Miscellaneous Test 04/12/17 04/12/17 04/12/17 05:00 11:57 17:47 WBC RBC Hgb Hct MCV MCH Plt Count Lymph % (Auto) [place] % (Auto) Eos % (Auto) Baso % (Auto) Lymph # Baso # Seg Neutrophils % Lymphocytes % (Manual) Monocytes % (Manual) Nucleated RBC % Seg Neutrophils # Seg Neutrophils # Man Monocytes # (Manual) PT INR Activated Clotting Time POC ABG pH POC ABG pCO2 POC ABG pO2 Sodium Potassium Chloride Carbon Dioxide BUN Creatinine Glucose POC Glucose 140 H 142 H Calcium Magnesium Direct Bilirubin AST 158 H ALT 184 H Alkaline Phosphatase 170 H Total Creatine Kinase CK-MB (CK-2) CK-MB (CK-2) Rel Index Troponin T C-Reactive Protein Total Protein Albumin 2.8 L Triglycerides Ur Specific [place] Urine WBC (Auto) Miscellaneous Test 04/12/17 04/12/17 04/13/17 21:36 21:36 01:37 WBC RBC Hgb Hct MCV MCH Plt Count Lymph % (Auto) [place] % (Auto) Eos % (Auto) Baso % (Auto) Lymph # Baso # Seg Neutrophils % Lymphocytes % (Manual) Monocytes % (Manual) Nucleated RBC % Seg Neutrophils # Seg Neutrophils # Man Monocytes # (Manual) PT INR Activated Clotting Time POC ABG pH POC ABG pCO2 POC ABG pO2 Sodium Potassium Chloride Carbon Dioxide BUN Creatinine Glucose POC Glucose 126 H Calcium Magnesium Direct Bilirubin AST ALT Alkaline Phosphatase Total Creatine Kinase 1404 H CK-MB (CK-2) 8.0 H CK-MB (CK-2) Rel Index Troponin T 0.767 H* C-Reactive Protein Total Protein Albumin Triglycerides Ur Specific [place] Urine WBC (Auto) Miscellaneous Test 04/13/17 04/13/17 04/13/17 04:45 04:52 12:17 WBC RBC Hgb Hct MCV MCH Plt Count Lymph % (Auto) [place] % (Auto) Eos % (Auto) Baso % (Auto) Lymph # Baso # Seg Neutrophils % Lymphocytes % (Manual) Monocytes % (Manual) Nucleated RBC % Seg Neutrophils # Seg Neutrophils # Man Monocytes # (Manual) PT INR Activated Clotting Time POC ABG pH POC ABG pCO2 POC ABG pO2 Sodium 148 H Potassium Chloride 112.8 H Carbon Dioxide BUN 33 H Creatinine 0.4 L Glucose 121 H POC Glucose 126 H 149 H Calcium Magnesium Direct Bilirubin AST 160 H ALT 189 H Alkaline Phosphatase 166 H Total Creatine Kinase CK-MB (CK-2) CK-MB (CK-2) Rel Index Troponin T C-Reactive Protein Total Protein Albumin 2.6 L Triglycerides Ur Specific [place] Urine WBC (Auto) Miscellaneous Test 04/13/17 04/14/17 04/14/17 17:45 00:20 00:45 WBC RBC Hgb Hct MCV MCH Plt Count Lymph % (Auto) [place] % (Auto) Eos % (Auto) Baso % (Auto) Lymph # Baso # Seg Neutrophils % Lymphocytes % (Manual) Monocytes % (Manual) Nucleated RBC % Seg Neutrophils # Seg Neutrophils # Man Monocytes # (Manual) PT INR Activated Clotting Time POC ABG pH POC ABG pCO2 POC ABG pO2 Sodium Potassium Chloride Carbon Dioxide BUN Creatinine Glucose POC Glucose 130 H 144 H 144 H Calcium Magnesium Direct Bilirubin AST ALT Alkaline Phosphatase Total Creatine Kinase CK-MB (CK-2) CK-MB (CK-2) Rel Index Troponin T C-Reactive Protein Total Protein Albumin Triglycerides Ur Specific [place] Urine WBC (Auto) Miscellaneous Test 04/14/17 04/14/17 04/14/17 05:40 11:06 11:31 WBC RBC Hgb Hct MCV MCH Plt Count Lymph % (Auto) [place] % (Auto) Eos % (Auto) Baso % (Auto) Lymph # Baso # Seg Neutrophils % Lymphocytes % (Manual) Monocytes % (Manual) Nucleated RBC % Seg Neutrophils # Seg Neutrophils # Man Monocytes # (Manual) PT INR Activated Clotting Time POC ABG pH POC ABG pCO2 POC ABG pO2 Sodium Potassium Chloride Carbon Dioxide BUN Creatinine Glucose POC Glucose 139 H 123 H Calcium Magnesium Direct Bilirubin AST ALT Alkaline Phosphatase Total Creatine Kinase CK-MB (CK-2) CK-MB (CK-2) Rel Index Troponin T C-Reactive Protein Total Protein Albumin Triglycerides Ur Specific [place] 1.033 H Urine WBC (Auto) > 182.0 H Miscellaneous Test 04/14/17 04/14/17 04/15/17 18:00 23:52 05:15 WBC 12.5 H RBC 3.38 L Hgb 10.6 L Hct 32.7 L MCV 97 H MCH Plt Count 107 L Lymph % (Auto) 8.7 L [place] % (Auto) Eos % (Auto) Baso % (Auto) Lymph # 1.1 L Baso # Seg Neutrophils % 86.1 H Lymphocytes % (Manual) Monocytes % (Manual) Nucleated RBC % Seg Neutrophils # 10.7 H Seg Neutrophils # Man Monocytes # (Manual) PT INR Activated Clotting Time POC ABG pH POC ABG pCO2 POC ABG pO2 Sodium Potassium Chloride Carbon Dioxide BUN Creatinine Glucose POC Glucose 133 H 133 H Calcium Magnesium Direct Bilirubin AST ALT Alkaline Phosphatase Total Creatine Kinase CK-MB (CK-2) CK-MB (CK-2) Rel Index Troponin T C-Reactive Protein Total Protein Albumin Triglycerides Ur Specific [place] Urine WBC (Auto) Miscellaneous Test 04/15/17 04/15/17 04/15/17 05:15 05:25 11:50 WBC RBC Hgb Hct MCV MCH Plt Count Lymph % (Auto) [place] % (Auto) Eos % (Auto) Baso % (Auto) Lymph # Baso # Seg Neutrophils % Lymphocytes % (Manual) Monocytes % (Manual) Nucleated RBC % Seg Neutrophils # Seg Neutrophils # Man Monocytes # (Manual) PT INR Activated Clotting Time POC ABG pH POC ABG pCO2 POC ABG pO2 Sodium 149 H Potassium 3.5 L Chloride 114.1 H Carbon Dioxide 21 L BUN 29 H Creatinine 0.4 L Glucose 128 H POC Glucose 133 H 107 H Calcium 8.3 L Magnesium Direct Bilirubin 0.4 H AST 149 H ALT 182 H Alkaline Phosphatase 143 H Total Creatine Kinase CK-MB (CK-2) CK-MB (CK-2) Rel Index Troponin T C-Reactive Protein Total Protein Albumin 2.5 L Triglycerides Ur Specific [place] Urine WBC (Auto) Miscellaneous Test 04/15/17 04/16/17 04/16/17 16:55 00:02 03:17 WBC RBC 3.39 L Hgb 10.5 L Hct 32.4 L MCV 96 H MCH Plt Count 106 L Lymph % (Auto) 6.7 L [place] % (Auto) Eos % (Auto) Baso % (Auto) Lymph # 0.6 L Baso # Seg Neutrophils % 86.8 H Lymphocytes % (Manual) Monocytes % (Manual) Nucleated RBC % Seg Neutrophils # 8.2 H Seg Neutrophils # Man Monocytes # (Manual) PT INR Activated Clotting Time POC ABG pH POC ABG pCO2 POC ABG pO2 Sodium Potassium Chloride Carbon Dioxide BUN Creatinine Glucose POC Glucose 146 H 148 H Calcium Magnesium Direct Bilirubin AST ALT Alkaline Phosphatase Total Creatine Kinase CK-MB (CK-2) CK-MB (CK-2) Rel Index Troponin T C-Reactive Protein Total Protein Albumin Triglycerides Ur Specific [place] Urine WBC (Auto) Miscellaneous Test 04/16/17 04/16/17 04/16/17 03:17 05:19 11:13 WBC RBC Hgb Hct MCV MCH Plt Count Lymph % (Auto) [place] % (Auto) Eos % (Auto) Baso % (Auto) Lymph # Baso # Seg Neutrophils % Lymphocytes % (Manual) Monocytes % (Manual) Nucleated RBC % Seg Neutrophils # Seg Neutrophils # Man Monocytes # (Manual) PT INR Activated Clotting Time POC ABG pH POC ABG pCO2 POC ABG pO2 Sodium 149 H Potassium Chloride 111.1 H Carbon Dioxide 20 L BUN 27 H Creatinine 0.3 L Glucose 156 H POC Glucose 171 H 169 H Calcium 8.3 L Magnesium Direct Bilirubin AST ALT Alkaline Phosphatase Total Creatine Kinase CK-MB (CK-2) CK-MB (CK-2) Rel Index Troponin T C-Reactive Protein Total Protein Albumin Triglycerides Ur Specific [place] Urine WBC (Auto) Miscellaneous Test 04/16/17 04/17/17 04/17/17 17:03 00:00 05:09 WBC RBC Hgb Hct MCV MCH Plt Count Lymph % (Auto) [place] % (Auto) Eos % (Auto) Baso % (Auto) Lymph # Baso # Seg Neutrophils % Lymphocytes % (Manual) Monocytes % (Manual) Nucleated RBC % Seg Neutrophils # Seg Neutrophils # Man Monocytes # (Manual) PT INR Activated Clotting Time POC ABG pH POC ABG pCO2 POC ABG pO2 Sodium Potassium Chloride Carbon Dioxide BUN Creatinine Glucose POC Glucose 151 H 165 H 145 H Calcium Magnesium Direct Bilirubin AST ALT Alkaline Phosphatase Total Creatine Kinase CK-MB (CK-2) CK-MB (CK-2) Rel Index Troponin T C-Reactive Protein Total Protein Albumin Triglycerides Ur Specific [place] Urine WBC (Auto) Miscellaneous Test 04/17/17 04/17/17 04/18/17 11:38 17:47 00:01 WBC RBC Hgb Hct MCV MCH Plt Count Lymph % (Auto) [place] % (Auto) Eos % (Auto) Baso % (Auto) Lymph # Baso # Seg Neutrophils % Lymphocytes % (Manual) Monocytes % (Manual) Nucleated RBC % Seg Neutrophils # Seg Neutrophils # Man Monocytes # (Manual) PT INR Activated Clotting Time POC ABG pH POC ABG pCO2 POC ABG pO2 Sodium Potassium Chloride Carbon Dioxide BUN Creatinine Glucose POC Glucose 170 H 161 H 131 H Calcium Magnesium Direct Bilirubin AST ALT Alkaline Phosphatase Total Creatine Kinase CK-MB (CK-2) CK-MB (CK-2) Rel Index Troponin T C-Reactive Protein Total Protein Albumin Triglycerides Ur Specific [place] Urine WBC (Auto) Miscellaneous Test 04/18/17 04/18/17 04/18/17 03:55 03:55 05:30 WBC RBC 3.05 L Hgb 9.8 L Hct 29.0 L MCV 95 H MCH Plt Count 113 L Lymph % (Auto) [place] % (Auto) Eos % (Auto) 5.3 H Baso % (Auto) Lymph # Baso # Seg Neutrophils % 71.5 H Lymphocytes % (Manual) Monocytes % (Manual) Nucleated RBC % Seg Neutrophils # Seg Neutrophils # Man Monocytes # (Manual) PT INR Activated Clotting Time POC ABG pH 7.460 H POC ABG pCO2 30.8 L POC ABG pO2 129 H Sodium Potassium Chloride Carbon Dioxide 21 L BUN 25 H Creatinine 0.4 L Glucose 123 H POC Glucose Calcium 8.3 L Magnesium Direct Bilirubin AST ALT Alkaline Phosphatase Total Creatine Kinase CK-MB (CK-2) CK-MB (CK-2) Rel Index Troponin T C-Reactive Protein Total Protein Albumin Triglycerides Ur Specific [place] Urine WBC (Auto) Miscellaneous Test 04/18/17 04/18/17 04/19/17 17:10 23:40 04:36 WBC RBC 3.21 L Hgb 10.2 L Hct 30.4 L MCV 95 H MCH Plt Count 131 L Lymph % (Auto) 12.1 L [place] % (Auto) Eos % (Auto) 4.7 H Baso % (Auto) 2.4 H Lymph # 0.9 L Baso # 0.2 H Seg Neutrophils % 75.0 H Lymphocytes % (Manual) Monocytes % (Manual) Nucleated RBC % Seg Neutrophils # Seg Neutrophils # Man Monocytes # (Manual) PT INR Activated Clotting Time POC ABG pH POC ABG pCO2 POC ABG pO2 Sodium Potassium Chloride Carbon Dioxide BUN Creatinine Glucose POC Glucose 135 H 157 H Calcium Magnesium Direct Bilirubin AST ALT Alkaline Phosphatase Total Creatine Kinase CK-MB (CK-2) CK-MB (CK-2) Rel Index Troponin T C-Reactive Protein Total Protein Albumin Triglycerides Ur Specific [place] Urine WBC (Auto) Miscellaneous Test 04/19/17 04/19/17 04/19/17 04:36 05:12 06:50 WBC RBC Hgb Hct MCV MCH Plt Count Lymph % (Auto) [place] % (Auto) Eos % (Auto) Baso % (Auto) Lymph # Baso # Seg Neutrophils % Lymphocytes % (Manual) Monocytes % (Manual) Nucleated RBC % Seg Neutrophils # Seg Neutrophils # Man Monocytes # (Manual) PT INR Activated Clotting Time POC ABG pH 7.516 H POC ABG pCO2 28.0 L POC ABG pO2 Sodium Potassium Chloride Carbon Dioxide 21 L BUN 23 H Creatinine 0.2 L Glucose 137 H POC Glucose 131 H Calcium 7.9 L Magnesium Direct Bilirubin AST ALT Alkaline Phosphatase Total Creatine Kinase CK-MB (CK-2) CK-MB (CK-2) Rel Index Troponin T C-Reactive Protein Total Protein Albumin Triglycerides Ur Specific [place] Urine WBC (Auto) Miscellaneous Test 04/19/17 04/19/17 04/20/17 12:36 17:42 00:12 WBC RBC Hgb Hct MCV MCH Plt Count Lymph % (Auto) [place] % (Auto) Eos % (Auto) Baso % (Auto) Lymph # Baso # Seg Neutrophils % Lymphocytes % (Manual) Monocytes % (Manual) Nucleated RBC % Seg Neutrophils # Seg Neutrophils # Man Monocytes # (Manual) PT INR Activated Clotting Time POC ABG pH POC ABG pCO2 POC ABG pO2 Sodium Potassium Chloride Carbon Dioxide BUN Creatinine Glucose POC Glucose 128 H 140 H 132 H Calcium Magnesium Direct Bilirubin AST ALT Alkaline Phosphatase Total Creatine Kinase CK-MB (CK-2) CK-MB (CK-2) Rel Index Troponin T C-Reactive Protein Total Protein Albumin Triglycerides Ur Specific [place] Urine WBC (Auto) Miscellaneous Test 04/20/17 04/20/17 04/20/17 03:35 03:35 05:10 WBC RBC 3.34 L Hgb 10.4 L Hct 31.6 L MCV 95 H MCH Plt Count Lymph % (Auto) 12.9 L [place] % (Auto) Eos % (Auto) Baso % (Auto) Lymph # Baso # Seg Neutrophils % 77.3 H Lymphocytes % (Manual) Monocytes % (Manual) Nucleated RBC % Seg Neutrophils # Seg Neutrophils # Man Monocytes # (Manual) PT INR Activated Clotting Time POC ABG pH POC ABG pCO2 POC ABG pO2 Sodium Potassium Chloride Carbon Dioxide BUN Creatinine 0.3 L Glucose 155 H POC Glucose 135 H Calcium 7.8 L Magnesium Direct Bilirubin AST ALT Alkaline Phosphatase Total Creatine Kinase CK-MB (CK-2) CK-MB (CK-2) Rel Index Troponin T C-Reactive Protein Total Protein Albumin Triglycerides Ur Specific [place] Urine WBC (Auto) Miscellaneous Test 04/20/17 04/20/17 04/21/17 12:49 18:21 00:05 WBC RBC Hgb Hct MCV MCH Plt Count Lymph % (Auto) [place] % (Auto) Eos % (Auto) Baso % (Auto) Lymph # Baso # Seg Neutrophils % Lymphocytes % (Manual) Monocytes % (Manual) Nucleated RBC % Seg Neutrophils # Seg Neutrophils # Man Monocytes # (Manual) PT INR Activated Clotting Time POC ABG pH POC ABG pCO2 POC ABG pO2 Sodium Potassium Chloride Carbon Dioxide BUN Creatinine Glucose POC Glucose 155 H 165 H 141 H Calcium Magnesium Direct Bilirubin AST ALT Alkaline Phosphatase Total Creatine Kinase CK-MB (CK-2) CK-MB (CK-2) Rel Index Troponin T C-Reactive Protein Total Protein Albumin Triglycerides Ur Specific [place] Urine WBC (Auto) Miscellaneous Test 04/21/17 04/21/17 04/21/17 06:00 12:11 17:04 WBC RBC Hgb Hct MCV MCH Plt Count Lymph % (Auto) [place] % (Auto) Eos % (Auto) Baso % (Auto) Lymph # Baso # Seg Neutrophils % Lymphocytes % (Manual) Monocytes % (Manual) Nucleated RBC % Seg Neutrophils # Seg Neutrophils # Man Monocytes # (Manual) PT INR Activated Clotting Time POC ABG pH POC ABG pCO2 POC ABG pO2 Sodium Potassium Chloride Carbon Dioxide BUN Creatinine Glucose POC Glucose 152 H 165 H 156 H Calcium Magnesium Direct Bilirubin AST ALT Alkaline Phosphatase Total Creatine Kinase CK-MB (CK-2) CK-MB (CK-2) Rel Index Troponin T C-Reactive Protein Total Protein Albumin Triglycerides Ur Specific [place] Urine WBC (Auto) Miscellaneous Test 04/21/17 04/21/17 04/22/17 22:00 23:59 05:49 WBC RBC Hgb Hct MCV MCH Plt Count Lymph % (Auto) [place] % (Auto) Eos % (Auto) Baso % (Auto) Lymph # Baso # Seg Neutrophils % Lymphocytes % (Manual) Monocytes % (Manual) Nucleated RBC % Seg Neutrophils # Seg Neutrophils # Man Monocytes # (Manual) PT INR Activated Clotting Time POC ABG pH POC ABG pCO2 POC ABG pO2 Sodium Potassium Chloride Carbon Dioxide BUN Creatinine Glucose POC Glucose 166 H 173 H Calcium Magnesium Direct Bilirubin AST ALT Alkaline Phosphatase Total Creatine Kinase CK-MB (CK-2) CK-MB (CK-2) Rel Index Troponin T C-Reactive Protein Total Protein Albumin Triglycerides Ur Specific [place] Urine WBC (Auto) 10.0 H Miscellaneous Test 04/22/17 04/22/17 04/23/17 11:11 18:04 00:37 WBC RBC Hgb Hct MCV MCH Plt Count Lymph % (Auto) [place] % (Auto) Eos % (Auto) Baso % (Auto) Lymph # Baso # Seg Neutrophils % Lymphocytes % (Manual) Monocytes % (Manual) Nucleated RBC % Seg Neutrophils # Seg Neutrophils # Man Monocytes # (Manual) PT INR Activated Clotting Time POC ABG pH POC ABG pCO2 POC ABG pO2 Sodium Potassium Chloride Carbon Dioxide BUN Creatinine Glucose POC Glucose 172 H 140 H 135 H Calcium Magnesium Direct Bilirubin AST ALT Alkaline Phosphatase Total Creatine Kinase CK-MB (CK-2) CK-MB (CK-2) Rel Index Troponin T C-Reactive Protein Total Protein Albumin Triglycerides Ur Specific [place] Urine WBC (Auto) Miscellaneous Test 04/23/17 04/23/17 04/23/17 05:33 06:20 11:10 WBC RBC 3.19 L Hgb 9.9 L Hct 30.0 L MCV MCH Plt Count Lymph % (Auto) 8.0 L [place] % (Auto) Eos % (Auto) Baso % (Auto) Lymph # 0.8 L Baso # Seg Neutrophils % 84.5 H Lymphocytes % (Manual) Monocytes % (Manual) Nucleated RBC % Seg Neutrophils # 8.2 H Seg Neutrophils # Man Monocytes # (Manual) PT INR Activated Clotting Time POC ABG pH POC ABG pCO2 POC ABG pO2 Sodium Potassium Chloride Carbon Dioxide BUN Creatinine Glucose POC Glucose 134 H 134 H Calcium Magnesium Direct Bilirubin AST ALT Alkaline Phosphatase Total Creatine Kinase CK-MB (CK-2) CK-MB (CK-2) Rel Index Troponin T C-Reactive Protein Total Protein Albumin Triglycerides Ur Specific [place] Urine WBC (Auto) Miscellaneous Test 04/23/17 04/24/17 04/24/17 17:26 00:53 06:46 WBC RBC Hgb Hct MCV MCH Plt Count Lymph % (Auto) [place] % (Auto) Eos % (Auto) Baso % (Auto) Lymph # Baso # Seg Neutrophils % Lymphocytes % (Manual) Monocytes % (Manual) Nucleated RBC % Seg Neutrophils # Seg Neutrophils # Man Monocytes # (Manual) PT INR Activated Clotting Time POC ABG pH POC ABG pCO2 POC ABG pO2 Sodium Potassium Chloride Carbon Dioxide BUN Creatinine Glucose POC Glucose 164 H 146 H 125 H Calcium Magnesium Direct Bilirubin AST ALT Alkaline Phosphatase Total Creatine Kinase CK-MB (CK-2) CK-MB (CK-2) Rel Index Troponin T C-Reactive Protein Total Protein Albumin Triglycerides Ur Specific [place] Urine WBC (Auto) Miscellaneous Test 04/24/17 04/24/17 04/24/17 11:55 17:50 23:36 WBC RBC Hgb Hct MCV MCH Plt Count Lymph % (Auto) [place] % (Auto) Eos % (Auto) Baso % (Auto) Lymph # Baso # Seg Neutrophils % Lymphocytes % (Manual) Monocytes % (Manual) Nucleated RBC % Seg Neutrophils # Seg Neutrophils # Man Monocytes # (Manual) PT INR Activated Clotting Time POC ABG pH POC ABG pCO2 POC ABG pO2 Sodium Potassium Chloride Carbon Dioxide BUN Creatinine Glucose POC Glucose 156 H 146 H 131 H Calcium Magnesium Direct Bilirubin AST ALT Alkaline Phosphatase Total Creatine Kinase CK-MB (CK-2) CK-MB (CK-2) Rel Index Troponin T C-Reactive Protein Total Protein Albumin Triglycerides Ur Specific [place] Urine WBC (Auto) Miscellaneous Test 04/25/17 04/25/17 04/25/17 04:51 05:16 07:07 WBC RBC Hgb Hct MCV MCH Plt Count Lymph % (Auto) [place] % (Auto) Eos % (Auto) Baso % (Auto) Lymph # Baso # Seg Neutrophils % Lymphocytes % (Manual) Monocytes % (Manual) Nucleated RBC % Seg Neutrophils # Seg Neutrophils # Man Monocytes # (Manual) PT INR Activated Clotting Time POC ABG pH POC ABG pCO2 POC ABG pO2 Sodium Potassium Chloride Carbon Dioxide BUN Creatinine Glucose POC Glucose 139 H Calcium Magnesium Direct Bilirubin AST 105 H ALT 204 H Alkaline Phosphatase 189 H Total Creatine Kinase CK-MB (CK-2) CK-MB (CK-2) Rel Index Troponin T C-Reactive Protein Total Protein Albumin 2.4 L Triglycerides Ur Specific [place] Urine WBC (Auto) Miscellaneous Test Flexitest 1 H 04/25/17 04/25/17 04/25/17 12:29 17:23 23:32 WBC RBC Hgb Hct MCV MCH Plt Count Lymph % (Auto) [place] % (Auto) Eos % (Auto) Baso % (Auto) Lymph # Baso # Seg Neutrophils % Lymphocytes % (Manual) Monocytes % (Manual) Nucleated RBC % Seg Neutrophils # Seg Neutrophils # Man Monocytes # (Manual) PT INR Activated Clotting Time POC ABG pH POC ABG pCO2 POC ABG pO2 Sodium Potassium Chloride Carbon Dioxide BUN Creatinine Glucose POC Glucose 132 H 133 H 128 H Calcium Magnesium Direct Bilirubin AST ALT Alkaline Phosphatase Total Creatine Kinase CK-MB (CK-2) CK-MB (CK-2) Rel Index Troponin T C-Reactive Protein Total Protein Albumin Triglycerides Ur Specific [place] Urine WBC (Auto) Miscellaneous Test 04/26/17 04/26/17 04/26/17 05:24 11:28 17:09 WBC RBC Hgb Hct MCV MCH Plt Count Lymph % (Auto) [place] % (Auto) Eos % (Auto) Baso % (Auto) Lymph # Baso # Seg Neutrophils % Lymphocytes % (Manual) Monocytes % (Manual) Nucleated RBC % Seg Neutrophils # Seg Neutrophils # Man Monocytes # (Manual) PT INR Activated Clotting Time POC ABG pH POC ABG pCO2 POC ABG pO2 Sodium Potassium Chloride Carbon Dioxide BUN Creatinine Glucose POC Glucose 132 H 146 H 141 H Calcium Magnesium Direct Bilirubin AST ALT Alkaline Phosphatase Total Creatine Kinase CK-MB (CK-2) CK-MB (CK-2) Rel Index Troponin T C-Reactive Protein Total Protein Albumin Triglycerides Ur Specific [place] Urine WBC (Auto) Miscellaneous Test 04/26/17 04/27/17 04/27/17 23:52 05:40 05:40 WBC RBC 3.22 L Hgb 10.0 L Hct 29.9 L MCV MCH Plt Count Lymph % (Auto) [place] % (Auto) Eos % (Auto) Baso % (Auto) Lymph # Baso # Seg Neutrophils % 76.6 H Lymphocytes % (Manual) Monocytes % (Manual) Nucleated RBC % Seg Neutrophils # Seg Neutrophils # Man Monocytes # (Manual) PT INR Activated Clotting Time POC ABG pH POC ABG pCO2 POC ABG pO2 Sodium Potassium Chloride Carbon Dioxide BUN Creatinine Glucose POC Glucose 140 H Calcium Magnesium Direct Bilirubin AST 66 H ALT 137 H Alkaline Phosphatase 169 H Total Creatine Kinase CK-MB (CK-2) CK-MB (CK-2) Rel Index Troponin T C-Reactive Protein Total Protein 6.2 L Albumin 2.6 L Triglycerides Ur Specific [place] Urine WBC (Auto) Miscellaneous Test 04/27/17 04/27/17 04/27/17 05:40 06:10 11:13 WBC RBC Hgb Hct MCV MCH Plt Count Lymph % (Auto) [place] % (Auto) Eos % (Auto) Baso % (Auto) Lymph # Baso # Seg Neutrophils % Lymphocytes % (Manual) Monocytes % (Manual) Nucleated RBC % Seg Neutrophils # Seg Neutrophils # Man Monocytes # (Manual) PT INR Activated Clotting Time POC ABG pH POC ABG pCO2 POC ABG pO2 Sodium Potassium Chloride Carbon Dioxide BUN Creatinine 0.2 L Glucose 139 H POC Glucose 130 H 151 H Calcium Magnesium Direct Bilirubin AST ALT Alkaline Phosphatase Total Creatine Kinase CK-MB (CK-2) CK-MB (CK-2) Rel Index Troponin T C-Reactive Protein Total Protein Albumin Triglycerides Ur Specific [place] Urine WBC (Auto) Miscellaneous Test 04/27/17 04/27/17 04/28/17 17:37 23:19 05:24 WBC RBC Hgb Hct MCV MCH Plt Count Lymph % (Auto) [place] % (Auto) Eos % (Auto) Baso % (Auto) Lymph # Baso # Seg Neutrophils % Lymphocytes % (Manual) Monocytes % (Manual) Nucleated RBC % Seg Neutrophils # Seg Neutrophils # Man Monocytes # (Manual) PT INR Activated Clotting Time POC ABG pH POC ABG pCO2 POC ABG pO2 Sodium Potassium Chloride Carbon Dioxide BUN Creatinine Glucose POC Glucose 159 H 130 H 132 H Calcium Magnesium Direct Bilirubin AST ALT Alkaline Phosphatase Total Creatine Kinase CK-MB (CK-2) CK-MB (CK-2) Rel Index Troponin T C-Reactive Protein Total Protein Albumin Triglycerides Ur Specific [place] Urine WBC (Auto) Miscellaneous Test 04/28/17 04/28/17 04/28/17 11:15 17:38 23:23 WBC RBC Hgb Hct MCV MCH Plt Count Lymph % (Auto) [place] % (Auto) Eos % (Auto) Baso % (Auto) Lymph # Baso # Seg Neutrophils % Lymphocytes % (Manual) Monocytes % (Manual) Nucleated RBC % Seg Neutrophils # Seg Neutrophils # Man Monocytes # (Manual) PT INR Activated Clotting Time POC ABG pH POC ABG pCO2 POC ABG pO2 Sodium Potassium Chloride Carbon Dioxide BUN Creatinine Glucose POC Glucose 162 H 133 H 138 H Calcium Magnesium Direct Bilirubin AST ALT Alkaline Phosphatase Total Creatine Kinase CK-MB (CK-2) CK-MB (CK-2) Rel Index Troponin T C-Reactive Protein Total Protein Albumin Triglycerides Ur Specific [place] Urine WBC (Auto) Miscellaneous Test 04/29/17 04/29/17 04/29/17 05:15 12:55 17:21 WBC RBC Hgb Hct MCV MCH Plt Count Lymph % (Auto) [place] % (Auto) Eos % (Auto) Baso % (Auto) Lymph # Baso # Seg Neutrophils % Lymphocytes % (Manual) Monocytes % (Manual) Nucleated RBC % Seg Neutrophils # Seg Neutrophils # Man Monocytes # (Manual) PT INR Activated Clotting Time POC ABG pH POC ABG pCO2 POC ABG pO2 Sodium Potassium Chloride Carbon Dioxide BUN Creatinine Glucose POC Glucose 135 H 127 H 138 H Calcium Magnesium Direct Bilirubin AST ALT Alkaline Phosphatase Total Creatine Kinase CK-MB (CK-2) CK-MB (CK-2) Rel Index Troponin T C-Reactive Protein Total Protein Albumin Triglycerides Ur Specific [place] Urine WBC (Auto) Miscellaneous Test 04/29/17 04/30/17 04/30/17 23:52 04:55 12:22 WBC RBC Hgb Hct MCV MCH Plt Count Lymph % (Auto) [place] % (Auto) Eos % (Auto) Baso % (Auto) Lymph # Baso # Seg Neutrophils % Lymphocytes % (Manual) Monocytes % (Manual) Nucleated RBC % Seg Neutrophils # Seg Neutrophils # Man Monocytes # (Manual) PT INR Activated Clotting Time POC ABG pH POC ABG pCO2 POC ABG pO2 Sodium Potassium Chloride Carbon Dioxide BUN Creatinine Glucose POC Glucose 142 H 146 H 132 H Calcium Magnesium Direct Bilirubin AST ALT Alkaline Phosphatase Total Creatine Kinase CK-MB (CK-2) CK-MB (CK-2) Rel Index Troponin T C-Reactive Protein Total Protein Albumin Triglycerides Ur Specific [place] Urine WBC (Auto) Miscellaneous Test 04/30/17 04/30/17 04/30/17 14:25 17:47 18:20 WBC RBC Hgb Hct MCV MCH Plt Count Lymph % (Auto) [place] % (Auto) Eos % (Auto) Baso % (Auto) Lymph # Baso # Seg Neutrophils % Lymphocytes % (Manual) Monocytes % (Manual) Nucleated RBC % Seg Neutrophils # Seg Neutrophils # Man Monocytes # (Manual) PT INR Activated Clotting Time POC ABG pH 7.551 H POC ABG pCO2 32.7 L POC ABG pO2 Sodium Potassium Chloride Carbon Dioxide BUN 21 H Creatinine 0.2 L Glucose 141 H POC Glucose 139 H Calcium Magnesium Direct Bilirubin AST ALT Alkaline Phosphatase Total Creatine Kinase CK-MB (CK-2) CK-MB (CK-2) Rel Index Troponin T C-Reactive Protein Total Protein Albumin Triglycerides Ur Specific [place] Urine WBC (Auto) Miscellaneous Test 05/01/17 05/01/17 05/01/17 01:26 05:30 05:30 WBC RBC 3.49 L Hgb 10.3 L Hct 31.9 L MCV MCH Plt Count Lymph % (Auto) [place] % (Auto) 8.1 H Eos % (Auto) Baso % (Auto) Lymph # Baso # Seg Neutrophils % 71.3 H Lymphocytes % (Manual) Monocytes % (Manual) Nucleated RBC % Seg Neutrophils # Seg Neutrophils # Man Monocytes # (Manual) PT INR Activated Clotting Time POC ABG pH POC ABG pCO2 POC ABG pO2 Sodium 136 L Potassium Chloride 97.6 L Carbon Dioxide BUN Creatinine 0.2 L Glucose 123 H POC Glucose 116 H Calcium Magnesium Direct Bilirubin AST 71 H ALT 125 H Alkaline Phosphatase 158 H Total Creatine Kinase CK-MB (CK-2) CK-MB (CK-2) Rel Index Troponin T C-Reactive Protein Total Protein Albumin 2.6 L Triglycerides Ur Specific [place] Urine WBC (Auto) Miscellaneous Test 05/01/17 05/01/17 05/02/17 11:59 17:23 00:08 WBC RBC Hgb Hct MCV MCH Plt Count Lymph % (Auto) [place] % (Auto) Eos % (Auto) Baso % (Auto) Lymph # Baso # Seg Neutrophils % Lymphocytes % (Manual) Monocytes % (Manual) Nucleated RBC % Seg Neutrophils # Seg Neutrophils # Man Monocytes # (Manual) PT INR Activated Clotting Time POC ABG pH POC ABG pCO2 POC ABG pO2 Sodium Potassium Chloride Carbon Dioxide BUN Creatinine Glucose POC Glucose 118 H 144 H 122 H Calcium Magnesium Direct Bilirubin AST ALT Alkaline Phosphatase Total Creatine Kinase CK-MB (CK-2) CK-MB (CK-2) Rel Index Troponin T C-Reactive Protein Total Protein Albumin Triglycerides Ur Specific [place] Urine WBC (Auto) Miscellaneous Test 05/02/17 05/02/17 05/02/17 05:50 11:21 17:48 WBC RBC Hgb Hct MCV MCH Plt Count Lymph % (Auto) [place] % (Auto) Eos % (Auto) Baso % (Auto) Lymph # Baso # Seg Neutrophils % Lymphocytes % (Manual) Monocytes % (Manual) Nucleated RBC % Seg Neutrophils # Seg Neutrophils # Man Monocytes # (Manual) PT INR Activated Clotting Time POC ABG pH POC ABG pCO2 POC ABG pO2 Sodium Potassium Chloride Carbon Dioxide BUN Creatinine Glucose POC Glucose 120 H 121 H 140 H Calcium Magnesium Direct Bilirubin AST ALT Alkaline Phosphatase Total Creatine Kinase CK-MB (CK-2) CK-MB (CK-2) Rel Index Troponin T C-Reactive Protein Total Protein Albumin Triglycerides Ur Specific [place] Urine WBC (Auto) Miscellaneous Test 05/02/17 05/03/17 05/03/17 23:12 05:35 11:52 WBC RBC Hgb Hct MCV MCH Plt Count Lymph % (Auto) [place] % (Auto) Eos % (Auto) Baso % (Auto) Lymph # Baso # Seg Neutrophils % Lymphocytes % (Manual) Monocytes % (Manual) Nucleated RBC % Seg Neutrophils # Seg Neutrophils # Man Monocytes # (Manual) PT INR Activated Clotting Time POC ABG pH POC ABG pCO2 POC ABG pO2 Sodium Potassium Chloride Carbon Dioxide BUN Creatinine Glucose POC Glucose 128 H 113 H 126 H Calcium Magnesium Direct Bilirubin AST ALT Alkaline Phosphatase Total Creatine Kinase CK-MB (CK-2) CK-MB (CK-2) Rel Index Troponin T C-Reactive Protein Total Protein Albumin Triglycerides Ur Specific [place] Urine WBC (Auto) Miscellaneous Test 05/03/17 05/03/17 05/04/17 17:29 23:26 04:55 WBC RBC Hgb Hct MCV MCH Plt Count Lymph % (Auto) [place] % (Auto) Eos % (Auto) Baso % (Auto) Lymph # Baso # Seg Neutrophils % Lymphocytes % (Manual) Monocytes % (Manual) Nucleated RBC % Seg Neutrophils # Seg Neutrophils # Man Monocytes # (Manual) PT INR Activated Clotting Time POC ABG pH POC ABG pCO2 POC ABG pO2 Sodium Potassium Chloride Carbon Dioxide BUN Creatinine Glucose POC Glucose 141 H 129 H 126 H Calcium Magnesium Direct Bilirubin AST ALT Alkaline Phosphatase Total Creatine Kinase CK-MB (CK-2) CK-MB (CK-2) Rel Index Troponin T C-Reactive Protein Total Protein Albumin Triglycerides Ur Specific [place] Urine WBC (Auto) Miscellaneous Test 05/04/17 05/04/17 05/05/17 12:09 17:46 00:06 WBC RBC Hgb Hct MCV MCH Plt Count Lymph % (Auto) [place] % (Auto) Eos % (Auto) Baso % (Auto) Lymph # Baso # Seg Neutrophils % Lymphocytes % (Manual) Monocytes % (Manual) Nucleated RBC % Seg Neutrophils # Seg Neutrophils # Man Monocytes # (Manual) PT INR Activated Clotting Time POC ABG pH POC ABG pCO2 POC ABG pO2 Sodium Potassium Chloride Carbon Dioxide BUN Creatinine Glucose POC Glucose 125 H 125 H 110 H Calcium Magnesium Direct Bilirubin AST ALT Alkaline Phosphatase Total Creatine Kinase CK-MB (CK-2) CK-MB (CK-2) Rel Index Troponin T C-Reactive Protein Total Protein Albumin Triglycerides Ur Specific [place] Urine WBC (Auto) Miscellaneous Test 05/05/17 05/05/17 05/05/17 05:48 11:41 16:19 WBC RBC Hgb Hct MCV MCH Plt Count Lymph % (Auto) [place] % (Auto) Eos % (Auto) Baso % (Auto) Lymph # Baso # Seg Neutrophils % Lymphocytes % (Manual) Monocytes % (Manual) Nucleated RBC % Seg Neutrophils # Seg Neutrophils # Man Monocytes # (Manual) PT INR Activated Clotting Time POC ABG pH POC ABG pCO2 POC ABG pO2 Sodium Potassium Chloride Carbon Dioxide BUN Creatinine Glucose POC Glucose 124 H 122 H 120 H Calcium Magnesium Direct Bilirubin AST ALT Alkaline Phosphatase Total Creatine Kinase CK-MB (CK-2) CK-MB (CK-2) Rel Index Troponin T C-Reactive Protein Total Protein Albumin Triglycerides Ur Specific [place] Urine WBC (Auto) Miscellaneous Test 05/06/17 05/06/17 05/06/17 00:16 05:47 11:42 WBC RBC Hgb Hct MCV MCH Plt Count Lymph % (Auto) [place] % (Auto) Eos % (Auto) Baso % (Auto) Lymph # Baso # Seg Neutrophils % Lymphocytes % (Manual) Monocytes % (Manual) Nucleated RBC % Seg Neutrophils # Seg Neutrophils # Man Monocytes # (Manual) PT INR Activated Clotting Time POC ABG pH POC ABG pCO2 POC ABG pO2 Sodium Potassium Chloride Carbon Dioxide BUN Creatinine Glucose POC Glucose 110 H 142 H 120 H Calcium Magnesium Direct Bilirubin AST ALT Alkaline Phosphatase Total Creatine Kinase CK-MB (CK-2) CK-MB (CK-2) Rel Index Troponin T C-Reactive Protein Total Protein Albumin Triglycerides Ur Specific [place] Urine WBC (Auto) Miscellaneous Test 05/06/17 05/07/17 05/07/17 17:46 00:07 05:28 WBC RBC Hgb Hct MCV MCH Plt Count Lymph % (Auto) [place] % (Auto) Eos % (Auto) Baso % (Auto) Lymph # Baso # Seg Neutrophils % Lymphocytes % (Manual) Monocytes % (Manual) Nucleated RBC % Seg Neutrophils # Seg Neutrophils # Man Monocytes # (Manual) PT INR Activated Clotting Time POC ABG pH POC ABG pCO2 POC ABG pO2 Sodium Potassium Chloride Carbon Dioxide BUN Creatinine Glucose POC Glucose 127 H 145 H 124 H Calcium Magnesium Direct Bilirubin AST ALT Alkaline Phosphatase Total Creatine Kinase CK-MB (CK-2) CK-MB (CK-2) Rel Index Troponin T C-Reactive Protein Total Protein Albumin Triglycerides Ur Specific [place] Urine WBC (Auto) Miscellaneous Test 05/07/17 05/07/17 05/08/17 11:17 17:14 00:03 WBC RBC Hgb Hct MCV MCH Plt Count Lymph % (Auto) [place] % (Auto) Eos % (Auto) Baso % (Auto) Lymph # Baso # Seg Neutrophils % Lymphocytes % (Manual) Monocytes % (Manual) Nucleated RBC % Seg Neutrophils # Seg Neutrophils # Man Monocytes # (Manual) PT INR Activated Clotting Time POC ABG pH POC ABG pCO2 POC ABG pO2 Sodium Potassium Chloride Carbon Dioxide BUN Creatinine Glucose POC Glucose 144 H 125 H 122 H Calcium Magnesium Direct Bilirubin AST ALT Alkaline Phosphatase Total Creatine Kinase CK-MB (CK-2) CK-MB (CK-2) Rel Index Troponin T C-Reactive Protein Total Protein Albumin Triglycerides Ur Specific [place] Urine WBC (Auto) Miscellaneous Test 05/08/17 05/08/17 05/08/17 05:43 12:07 18:02 WBC RBC Hgb Hct MCV MCH Plt Count Lymph % (Auto) [place] % (Auto) Eos % (Auto) Baso % (Auto) Lymph # Baso # Seg Neutrophils % Lymphocytes % (Manual) Monocytes % (Manual) Nucleated RBC % Seg Neutrophils # Seg Neutrophils # Man Monocytes # (Manual) PT INR Activated Clotting Time POC ABG pH POC ABG pCO2 POC ABG pO2 Sodium Potassium Chloride Carbon Dioxide BUN Creatinine Glucose POC Glucose 117 H 114 H 129 H Calcium Magnesium Direct Bilirubin AST ALT Alkaline Phosphatase Total Creatine Kinase CK-MB (CK-2) CK-MB (CK-2) Rel Index Troponin T C-Reactive Protein Total Protein Albumin Triglycerides Ur Specific [place] Urine WBC (Auto) Miscellaneous Test 05/08/17 05/09/17 05/09/17 23:53 04:19 05:14 WBC RBC Hgb Hct MCV MCH Plt Count Lymph % (Auto) [place] % (Auto) Eos % (Auto) Baso % (Auto) Lymph # Baso # Seg Neutrophils % Lymphocytes % (Manual) Monocytes % (Manual) Nucleated RBC % Seg Neutrophils # Seg Neutrophils # Man Monocytes # (Manual) PT INR Activated Clotting Time POC ABG pH 7.524 H POC ABG pCO2 34.7 L POC ABG pO2 107 H Sodium Potassium Chloride Carbon Dioxide BUN Creatinine Glucose POC Glucose 125 H 118 H Calcium Magnesium Direct Bilirubin AST ALT Alkaline Phosphatase Total Creatine Kinase CK-MB (CK-2) CK-MB (CK-2) Rel Index Troponin T C-Reactive Protein Total Protein Albumin Triglycerides Ur Specific [place] Urine WBC (Auto) Miscellaneous Test 05/10/17 05/11/17 05/11/17 23:54 05:48 23:50 WBC RBC Hgb Hct MCV MCH Plt Count Lymph % (Auto) [place] % (Auto) Eos % (Auto) Baso % (Auto) Lymph # Baso # Seg Neutrophils % Lymphocytes % (Manual) Monocytes % (Manual) Nucleated RBC % Seg Neutrophils # Seg Neutrophils # Man Monocytes # (Manual) PT INR Activated Clotting Time POC ABG pH POC ABG pCO2 POC ABG pO2 Sodium Potassium Chloride Carbon Dioxide BUN Creatinine Glucose POC Glucose 126 H 137 H 130 H Calcium Magnesium Direct Bilirubin AST ALT Alkaline Phosphatase Total Creatine Kinase CK-MB (CK-2) CK-MB (CK-2) Rel Index Troponin T C-Reactive Protein Total Protein Albumin Triglycerides Ur Specific [place] Urine WBC (Auto) Miscellaneous Test 05/12/17 05/12/17 05/12/17 05:48 11:33 18:00 WBC RBC Hgb Hct MCV MCH Plt Count Lymph % (Auto) [place] % (Auto) Eos % (Auto) Baso % (Auto) Lymph # Baso # Seg Neutrophils % Lymphocytes % (Manual) Monocytes % (Manual) Nucleated RBC % Seg Neutrophils # Seg Neutrophils # Man Monocytes # (Manual) PT INR Activated Clotting Time POC ABG pH POC ABG pCO2 POC ABG pO2 Sodium Potassium Chloride Carbon Dioxide BUN Creatinine Glucose POC Glucose 126 H 116 H 131 H Calcium Magnesium Direct Bilirubin AST ALT Alkaline Phosphatase Total Creatine Kinase CK-MB (CK-2) CK-MB (CK-2) Rel Index Troponin T C-Reactive Protein Total Protein Albumin Triglycerides Ur Specific [place] Urine WBC (Auto) Miscellaneous Test 05/14/17 05/15/17 11:45 11:27 WBC RBC Hgb Hct MCV MCH Plt Count Lymph % (Auto) [place] % (Auto) Eos % (Auto) Baso % (Auto) Lymph # Baso # Seg Neutrophils % Lymphocytes % (Manual) Monocytes % (Manual) Nucleated RBC % Seg Neutrophils # Seg Neutrophils # Man Monocytes # (Manual) PT INR Activated Clotting Time POC ABG pH POC ABG pCO2 POC ABG pO2 Sodium Potassium Chloride Carbon Dioxide BUN Creatinine Glucose POC Glucose 123 H 129 H Calcium Magnesium Direct Bilirubin AST ALT Alkaline Phosphatase Total Creatine Kinase CK-MB (CK-2) CK-MB (CK-2) Rel Index Troponin T C-Reactive Protein Total Protein Albumin Triglycerides Ur Specific [place] Urine WBC (Auto) Miscellaneous Test Chest x-ray: report reviewed, image reviewed
--- NOTE | 2017-05-15 19:28 | Progress Note ---
Assessment and Plan Assessment and plan: --s/p cardiac arrest /anoxic encephalopathy/vegetative state -- acute hypoxic hypercapnic respiratory failure ; status post trach, vent dependent, --Acute anterior STEMI; status post PCI, --MRSA pneumonia/aspiration pneumonia, s/p full treatment, contact isolation --Hypertension; BP in the lower range. -- aspiration pneumonia; sepsis; received full course of antibiotics --Cardiogenic shock; off pressors, --s/p trach and PEG, continue PEG feeds --Severe Protein calorie malnutrition: Peg feeds and nutrition suppliments --DVT prophylaxis; Lovenox On the new on the current management --Full CODE STATUS Poor prognosis family aware, Had family meeting this morning with the business center representative and neurology Family has unrealistic expectations , requests to continue full CODE STATUS History Interval history: Patient seen and examined this morning medical records reviewed Clinically no change Status post tracheostomy and vent dependent Anoxic encephalopathy .unresponsive Vital signs reviewed Hospitalist Physical - Constitutional Vitals: Temp Pulse Resp BP Pulse Ox 98.0 F 81 20 93/56 100 05/15/17 15:45 05/15/17 16:00 05/15/17 16:00 05/15/17 16:00 05/15/17 16:00 General appearance: Present: no acute distress, well-nourished, other ( tracheostomy on vent) - EENT Eyes: Present: PERRL - Neck Neck: Present: supple - Respiratory Respiratory effort: normal Respiratory: bilateral: diminished, rales, rhonchi, negative: wheezing - Cardiovascular Rhythm: regular Heart Sounds: Present: S1 & S2 - Extremities Extremities: no ischemia, No edema - Abdominal General gastrointestinal: soft, non-distended, normal bowel sounds, other (PEG tube in place) - Integumentary Integumentary: Present: clear, warm - Psychiatric Psychiatric: other (unresponsive) - Neurologic Neurologic: other (unresponsive) Results - Labs CBC & Chem 7: 05/01/17 05:30 05/01/17 05:30 Labs: Laboratory Last Values WBC 7.8 K/mm3 (4.5-11.0) 05/01/17 05:30 RBC 3.49 M/mm3 (3.65-5.03) L 05/01/17 05:30 Hgb 10.3 gm/dl (11.8-15.2) L 05/01/17 05:30 Hct 31.9 % (35.5-45.6) L 05/01/17 05:30 MCV 92 fl (84-94) 05/01/17 05:30 MCH 30 pg (28-32) 05/01/17 05:30 MCHC 32 % (32-34) 05/01/17 05:30 RDW 15.1 % (13.2-15.2) 05/01/17 05:30 Plt Count 280 K/mm3 (140-440) 05/01/17 05:30 Lymph % (Auto) 17.7 % (13.4-35.0) 05/01/17 05:30 [place] % (Auto) 8.1 % (0.0-7.3) H 05/01/17 05:30 Eos % (Auto) 2.5 % (0.0-4.3) 05/01/17 05:30 Baso % (Auto) 0.4 % (0.0-1.8) 05/01/17 05:30 Lymph # 1.4 K/mm3 (1.2-5.4) 05/01/17 05:30 [place] # 0.6 K/mm3 (0.0-0.8) 05/01/17 05:30 Eos # 0.2 K/mm3 (0.0-0.4) 05/01/17 05:30 Baso # 0.0 K/mm3 (0.0-0.1) 05/01/17 05:30 Add Manual Diff Complete 03/30/17 03:50 Total Counted 100 03/30/17 03:50 Seg Neutrophils % 71.3 % (40.0-70.0) H 05/01/17 05:30 Seg Neuts % (Manual) 65.0 % (40.0-70.0) 03/30/17 03:50 Band Neutrophils % 17.0 % 03/30/17 03:50 Lymphocytes % (Manual) 7.0 % (13.4-35.0) L 03/30/17 03:50 Reactive Lymphs % (Man) 0 % 03/30/17 03:50 Monocytes % (Manual) 7.0 % (0.0-7.3) 03/30/17 03:50 Eosinophils % (Manual) 0 % (0.0-4.3) 03/30/17 03:50 Basophils % (Manual) 0 % (0.0-1.8) 03/30/17 03:50 Metamyelocytes % 4.0 % 03/30/17 03:50 Myelocytes % 0 % 03/30/17 03:50 Promyelocytes % 0 % 03/30/17 03:50 Blast Cells % 0 % 03/30/17 03:50 Nucleated RBC % Not Reportable 03/30/17 03:50 Seg Neutrophils # 5.6 K/mm3 (1.8-7.7) 05/01/17 05:30 Seg Neutrophils # Man 12.7 K/mm3 (1.8-7.7) H 03/30/17 03:50 Band Neutrophils # 3.3 K/mm3 03/30/17 03:50 Lymphocytes # (Manual) 1.4 K/mm3 (1.2-5.4) 03/30/17 03:50 Abs React Lymphs (Man) 0.0 K/mm3 03/30/17 03:50 Monocytes # (Manual) 1.4 K/mm3 (0.0-0.8) H 03/30/17 03:50 Eosinophils # (Manual) 0.0 K/mm3 (0.0-0.4) 03/30/17 03:50 Basophils # (Manual) 0.0 K/mm3 (0.0-0.1) 03/30/17 03:50 Metamyelocytes # 0.8 K/mm3 03/30/17 03:50 Myelocytes # 0.0 K/mm3 03/30/17 03:50 Promyelocytes # 0.0 K/mm3 03/30/17 03:50 Blast Cells # 0.0 K/mm3 03/30/17 03:50 WBC Morphology Not Reportable 03/30/17 03:50 Hypersegmented Neuts Not Reportable 03/30/17 03:50 Hyposegmented Neuts Not Reportable 03/30/17 03:50 Hypogranular Neuts Not Reportable 03/30/17 03:50 Smudge Cells Not Reportable 03/30/17 03:50 Toxic Granulation Not Reportable 03/30/17 03:50 Toxic Vacuolation Not Reportable 03/30/17 03:50 Dohle Bodies Not Reportable 03/30/17 03:50 Pelger-Huet Anomaly Not Reportable 03/30/17 03:50 Sherry Rods Not Reportable 03/30/17 03:50 Platelet Estimate Appears normal 03/30/17 03:50 Clumped Platelets Not Reportable 03/30/17 03:50 Plt Clumps, EDTA Not Reportable 03/30/17 03:50 Large Platelets Not Reportable 03/30/17 03:50 Giant Platelets Not Reportable 03/30/17 03:50 Platelet Satelliting Not Reportable 03/30/17 03:50 Plt Morphology Comment Not Reportable 03/30/17 03:50 RBC Morphology Not Reportable 03/30/17 03:50 Dimorphic RBCs Not Reportable 03/30/17 03:50 Polychromasia Not Reportable 03/30/17 03:50 Hypochromasia Not Reportable 03/30/17 03:50 Poikilocytosis Not Reportable 03/30/17 03:50 Anisocytosis Few 03/30/17 03:50 Microcytosis Not Reportable 03/30/17 03:50 Macrocytosis Not Reportable 03/30/17 03:50 Spherocytes Not Reportable 03/30/17 03:50 Pappenheimer Bodies Not Reportable 03/30/17 03:50 Sickle Cells Not Reportable 03/30/17 03:50 Target Cells Not Reportable 03/30/17 03:50 Tear Drop Cells Not Reportable 03/30/17 03:50 Ovalocytes Not Reportable 03/30/17 03:50 Helmet Cells Not Reportable 03/30/17 03:50 [place] Bodies Not Reportable 03/30/17 03:50 [place] Rings Not Reportable 03/30/17 03:50 Nusrat Cells Not Reportable 03/30/17 03:50 Bite Cells Not Reportable 03/30/17 03:50 Crenated Cell Not Reportable 03/30/17 03:50 Elliptocytes Not Reportable 03/30/17 03:50 Acanthocytes (Spur) Not Reportable 03/30/17 03:50 Rouleaux Not Reportable 03/30/17 03:50 Hemoglobin C Crystals Not Reportable 03/30/17 03:50 Schistocytes Not Reportable 03/30/17 03:50 Malaria parasites Not Reportable 03/30/17 03:50 Jermaine Bodies Not Reportable 03/30/17 03:50 Hem Pathologist Commnt No 03/30/17 03:50 PT 14.9 Sec. (12.2-14.9) 04/10/17 04:16 INR 1.11 (0.87-1.13) 04/10/17 04:16 APTT 27.8 Sec. (24.2-36.6) 04/10/17 04:16 Activated Clotting Time 92 (74-137) 03/29/17 17:47 POC ABG pH 7.524 (7.35-7.45) H 05/09/17 04:19 POC ABG pCO2 34.7 (35-45) L 05/09/17 04:19 POC ABG pO2 107 (80-105) H 05/09/17 04:19 POC ABG HCO3 28.6 05/09/17 04:19 POC ABG Total CO2 30 05/09/17 04:19 POC ABG O2 Sat 99 05/09/17 04:19 POC ABG Base Excess 6 05/09/17 04:19 FiO2 25 % 05/09/17 04:19 Sodium 136 mmol/L (137-145) L 05/01/17 05:30 Potassium 3.9 mmol/L (3.6-5.0) 05/01/17 05:30 Chloride 97.6 mmol/L (98-107) L 05/01/17 05:30 Carbon Dioxide 25 mmol/L (22-30) 05/01/17 05:30 Anion Gap 17 mmol/L 05/01/17 05:30 BUN 16 mg/dL (9-20) 05/01/17 05:30 Creatinine 0.2 mg/dL (0.8-1.5) L 05/01/17 05:30 Estimated GFR > 60 ml/min 05/01/17 05:30 BUN/Creatinine Ratio 80 % 05/01/17 05:30 Glucose 123 mg/dL (75-100) H 05/01/17 05:30 POC Glucose 125 (70-105) H 05/15/17 17:42 Calcium 8.9 mg/dL (8.4-10.2) 05/01/17 05:30 Phosphorus 3.50 mg/dL (2.5-4.5) 04/13/17 04:45 Magnesium 1.80 mg/dL (1.7-2.3) 05/01/17 05:30 Total Bilirubin 0.60 mg/dL (0.1-1.2) 05/01/17 05:30 Direct Bilirubin < 0.2 mg/dL (0-0.2) 04/27/17 05:40 Indirect Bilirubin 0.3 mg/dL 04/25/17 04:51 AST 71 units/L (5-40) H 05/01/17 05:30 ALT 125 units/L (7-56) H 05/01/17 05:30 Alkaline Phosphatase 158 units/L (35-129) H 05/01/17 05:30 Total Creatine Kinase 1404 units/L (55-170) H 04/12/17 21:36 CK-MB (CK-2) 8.0 ng/mL (0.0-4.0) H 04/12/17 21:36 CK-MB (CK-2) Rel Index 0.5 (0-4) 04/12/17 21:36 Troponin T 0.767 ng/mL (0.00-0.029) H* 04/12/17 21:36 C-Reactive Protein 21.80 mg/dL (0.00-1.30) H 03/30/17 16:04 Total Protein 6.7 g/dL (6.3-8.2) 05/01/17 05:30 Albumin 2.6 g/dL (3.9-5) L 05/01/17 05:30 Albumin/Globulin Ratio 0.6 % 05/01/17 05:30 Triglycerides 151 mg/dL (2-149) H 04/01/17 04:29 Cholesterol 164 mg/dL (50-199) 03/29/17 19:52 LDL Cholesterol Direct 81 mg/dL (50-130) 03/29/17 19:52 HDL Cholesterol 44 mg/dL (40-59) 03/29/17 19:52 Cholesterol/HDL Ratio 3.72 % 03/29/17 19:52 Urine Color [place] (Yellow) 04/21/17 22:00 Urine Turbidity Clear (Clear) 04/21/17 22:00 Urine pH 5.0 (5.0-7.0) 04/21/17 22:00 Ur Specific [place] 1.029 (1.003-1.030) 04/21/17 22:00 Urine Protein 30 mg/dl mg/dL (Negative) 04/21/17 22:00 Urine Glucose (UA) Neg mg/dL (Negative) 04/21/17 22:00 Urine Ketones Neg mg/dL (Negative) 04/21/17 22:00 Urine Blood Mod (Negative) 04/21/17 22:00 Urine Nitrite Neg (Negative) 04/21/17 22:00 Urine Bilirubin Neg (Negative) 04/21/17 22:00 Urine Urobilinogen 4.0 mg/dL (<2.0) 04/21/17 22:00 Ur Leukocyte Esterase Neg (Negative) 04/21/17 22:00 Urine WBC (Auto) 10.0 /HPF (0.0-6.0) H 04/21/17 22:00 Urine RBC (Auto) 44.0 /HPF (0.0-6.0) 04/21/17 22:00 U Epithel Cells (Auto) < 1.0 /HPF (0-13.0) 04/21/17 22:00 Amorphous Crystals 1+ 03/30/17 09:45 Urine Mucus 3+ /HPF 04/21/17 22:00 Urine Opiates Screen Presumptive negative 03/30/17 09:45 Urine Methadone Screen Presumptive negative 03/30/17 09:45 Ur Barbiturates Screen Presumptive negative 03/30/17 09:45 Ur Phencyclidine Scrn Presumptive negative 03/30/17 09:45 Ur Amphetamines Screen Presumptive positive 03/30/17 09:45 U Benzodiazepines Scrn Presumptive positive 03/30/17 09:45 Urine Cocaine Screen Presumptive negative 03/30/17 09:45 U Marijuana (THC) Screen Presumptive negative 03/30/17 09:45 Drugs of Abuse Note Disclamer 03/30/17 09:45 Miscellaneous Test Flexitest 1 H 04/25/17 07:07 Blood Type O POSITIVE 03/29/17 11:35 Antibody Screen Negative 03/29/17 11:35
[2017-05-16] MEDS: ELIQUIS PO SCH ×3 (01:47→22:18)
[2017-05-16] MEDS: LOPRESSOR PO SCH ×3 (01:48→22:18)
[2017-05-16] MEDS: CORDARONE PO SCH ×3 (01:48→22:18)
--- NOTE | 2017-05-16 03:27 | XRay Report ---
FINAL REPORT EXAM: XR CHEST 1V AP HISTORY: pneumonia TECHNIQUE: A portable upright view the chest was obtained and compared to the study 04/22/2017. FINDINGS: The tracheostomy tube in appears in good position. There are no localized infiltrates or congestion at this time. The heart size is normal. There EKG leads overlying the chest wall. The bones and soft tissues are well maintained IMPRESSION: No acute infiltrates or congestion.
--- NOTE | 2017-05-16 10:41 | Progress Note ---
Assessment and Plan Assessment and plan: 46 YO Male with No PMH was admitted through emergency room with history of V. fib cardiac arrest status post CPR per ACLS protocol, acute respiratory failure vent dependent , had tracheostomy and PEG placement, awaiting LTAC evaluation and placement --s/p cardiac arrest /anoxic encephalopathy/vegetative state -- acute hypoxic hypercapnic respiratory failure ; status post trach, vent dependent, --Acute anterior STEMI; status post PCI, --MRSA pneumonia/aspiration pneumonia, s/p full treatment, contact isolation --Hypertension; BP in the lower range. 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 pilot and neurology Family has unrealistic expectations , requests to continue full CODE STATUS History Interval history: Patient seen and examined medical records reviewed Clinically no change Unresponsive, status post trach, and dependent Vital signs reviewed Awaiting placement Multiple social issues Hospitalist Physical - Constitutional Vitals: Temp Pulse Resp BP Pulse Ox 98.2 F 70 12 90/61 99 05/16/17 08:00 05/16/17 09:19 05/16/17 09:19 05/16/17 09:19 05/16/17 09:19 General appearance: Present: no acute distress, well-nourished, other ( tracheostomy on vent) - EENT Eyes: Present: PERRL, EOM intact ENT: other (tracheostomy) - Neck Neck: Present: supple, normal ROM - Respiratory Respiratory effort: normal Respiratory: bilateral: diminished, rhonchi, negative: rales, wheezing - Cardiovascular Rhythm: regular Heart Sounds: Present: S1 & S2 - Extremities Extremities: no ischemia Extremity abnormal: edema - Abdominal General gastrointestinal: soft, non-distended, normal bowel sounds - Integumentary Integumentary: Present: clear, warm - Psychiatric Psychiatric: other (unresponsive) - Neurologic Neurologic: other (unresponsive) Results - Labs CBC & Chem 7: 05/01/17 05:30 05/01/17 05:30 Labs: Laboratory Last Values WBC 7.8 K/mm3 (4.5-11.0) 05/01/17 05:30 RBC 3.49 M/mm3 (3.65-5.03) L 05/01/17 05:30 Hgb 10.3 gm/dl (11.8-15.2) L 05/01/17 05:30 Hct 31.9 % (35.5-45.6) L 05/01/17 05:30 MCV 92 fl (84-94) 05/01/17 05:30 MCH 30 pg (28-32) 05/01/17 05:30 MCHC 32 % (32-34) 05/01/17 05:30 RDW 15.1 % (13.2-15.2) 05/01/17 05:30 Plt Count 280 K/mm3 (140-440) 05/01/17 05:30 Lymph % (Auto) 17.7 % (13.4-35.0) 05/01/17 05:30 [place] % (Auto) 8.1 % (0.0-7.3) H 05/01/17 05:30 Eos % (Auto) 2.5 % (0.0-4.3) 05/01/17 05:30 Baso % (Auto) 0.4 % (0.0-1.8) 05/01/17 05:30 Lymph # 1.4 K/mm3 (1.2-5.4) 05/01/17 05:30 [place] # 0.6 K/mm3 (0.0-0.8) 05/01/17 05:30 Eos # 0.2 K/mm3 (0.0-0.4) 05/01/17 05:30 Baso # 0.0 K/mm3 (0.0-0.1) 05/01/17 05:30 Add Manual Diff Complete 03/30/17 03:50 Total Counted 100 03/30/17 03:50 Seg Neutrophils % 71.3 % (40.0-70.0) H 05/01/17 05:30 Seg Neuts % (Manual) 65.0 % (40.0-70.0) 03/30/17 03:50 Band Neutrophils % 17.0 % 03/30/17 03:50 Lymphocytes % (Manual) 7.0 % (13.4-35.0) L 03/30/17 03:50 Reactive Lymphs % (Man) 0 % 03/30/17 03:50 Monocytes % (Manual) 7.0 % (0.0-7.3) 03/30/17 03:50 Eosinophils % (Manual) 0 % (0.0-4.3) 03/30/17 03:50 Basophils % (Manual) 0 % (0.0-1.8) 03/30/17 03:50 Metamyelocytes % 4.0 % 03/30/17 03:50 Myelocytes % 0 % 03/30/17 03:50 Promyelocytes % 0 % 03/30/17 03:50 Blast Cells % 0 % 03/30/17 03:50 Nucleated RBC % Not Reportable 03/30/17 03:50 Seg Neutrophils # 5.6 K/mm3 (1.8-7.7) 05/01/17 05:30 Seg Neutrophils # Man 12.7 K/mm3 (1.8-7.7) H 03/30/17 03:50 Band Neutrophils # 3.3 K/mm3 03/30/17 03:50 Lymphocytes # (Manual) 1.4 K/mm3 (1.2-5.4) 03/30/17 03:50 Abs React Lymphs (Man) 0.0 K/mm3 03/30/17 03:50 Monocytes # (Manual) 1.4 K/mm3 (0.0-0.8) H 03/30/17 03:50 Eosinophils # (Manual) 0.0 K/mm3 (0.0-0.4) 03/30/17 03:50 Basophils # (Manual) 0.0 K/mm3 (0.0-0.1) 03/30/17 03:50 Metamyelocytes # 0.8 K/mm3 03/30/17 03:50 Myelocytes # 0.0 K/mm3 03/30/17 03:50 Promyelocytes # 0.0 K/mm3 03/30/17 03:50 Blast Cells # 0.0 K/mm3 03/30/17 03:50 WBC Morphology Not Reportable 03/30/17 03:50 Hypersegmented Neuts Not Reportable 03/30/17 03:50 Hyposegmented Neuts Not Reportable 03/30/17 03:50 Hypogranular Neuts Not Reportable 03/30/17 03:50 Smudge Cells Not Reportable 03/30/17 03:50 Toxic Granulation Not Reportable 03/30/17 03:50 Toxic Vacuolation Not Reportable 03/30/17 03:50 Dohle Bodies Not Reportable 03/30/17 03:50 Pelger-Huet Anomaly Not Reportable 03/30/17 03:50 Sherry Rods Not Reportable 03/30/17 03:50 Platelet Estimate Appears normal 03/30/17 03:50 Clumped Platelets Not Reportable 03/30/17 03:50 Plt Clumps, EDTA Not Reportable 03/30/17 03:50 Large Platelets Not Reportable 03/30/17 03:50 Giant Platelets Not Reportable 03/30/17 03:50 Platelet Satelliting Not Reportable 03/30/17 03:50 Plt Morphology Comment Not Reportable 03/30/17 03:50 RBC Morphology Not Reportable 03/30/17 03:50 Dimorphic RBCs Not Reportable 03/30/17 03:50 Polychromasia Not Reportable 03/30/17 03:50 Hypochromasia Not Reportable 03/30/17 03:50 Poikilocytosis Not Reportable 03/30/17 03:50 Anisocytosis Few 03/30/17 03:50 Microcytosis Not Reportable 03/30/17 03:50 Macrocytosis Not Reportable 03/30/17 03:50 Spherocytes Not Reportable 03/30/17 03:50 Pappenheimer Bodies Not Reportable 03/30/17 03:50 Sickle Cells Not Reportable 03/30/17 03:50 Target Cells Not Reportable 03/30/17 03:50 Tear Drop Cells Not Reportable 03/30/17 03:50 Ovalocytes Not Reportable 03/30/17 03:50 Helmet Cells Not Reportable 03/30/17 03:50 [place] Bodies Not Reportable 03/30/17 03:50 [place] Rings Not Reportable 03/30/17 03:50 Nusrat Cells Not Reportable 03/30/17 03:50 Bite Cells Not Reportable 03/30/17 03:50 Crenated Cell Not Reportable 03/30/17 03:50 Elliptocytes Not Reportable 03/30/17 03:50 Acanthocytes (Spur) Not Reportable 03/30/17 03:50 Rouleaux Not Reportable 03/30/17 03:50 Hemoglobin C Crystals Not Reportable 03/30/17 03:50 Schistocytes Not Reportable 03/30/17 03:50 Malaria parasites Not Reportable 03/30/17 03:50 Jermaine Bodies Not Reportable 03/30/17 03:50 Hem Pathologist Commnt No 03/30/17 03:50 PT 14.9 Sec. (12.2-14.9) 04/10/17 04:16 INR 1.11 (0.87-1.13) 04/10/17 04:16 APTT 27.8 Sec. (24.2-36.6) 04/10/17 04:16 Activated Clotting Time 92 (74-137) 03/29/17 17:47 POC ABG pH 7.524 (7.35-7.45) H 05/09/17 04:19 POC ABG pCO2 34.7 (35-45) L 05/09/17 04:19 POC ABG pO2 107 (80-105) H 05/09/17 04:19 POC ABG HCO3 28.6 05/09/17 04:19 POC ABG Total CO2 30 05/09/17 04:19 POC ABG O2 Sat 99 05/09/17 04:19 POC ABG Base Excess 6 05/09/17 04:19 FiO2 25 % 05/09/17 04:19 Sodium 136 mmol/L (137-145) L 05/01/17 05:30 Potassium 3.9 mmol/L (3.6-5.0) 05/01/17 05:30 Chloride 97.6 mmol/L (98-107) L 05/01/17 05:30 Carbon Dioxide 25 mmol/L (22-30) 05/01/17 05:30 Anion Gap 17 mmol/L 05/01/17 05:30 BUN 16 mg/dL (9-20) 05/01/17 05:30 Creatinine 0.2 mg/dL (0.8-1.5) L 05/01/17 05:30 Estimated GFR > 60 ml/min 05/01/17 05:30 BUN/Creatinine Ratio 80 % 05/01/17 05:30 Glucose 123 mg/dL (75-100) H 05/01/17 05:30 POC Glucose 141 (70-105) H 05/16/17 00:29 Calcium 8.9 mg/dL (8.4-10.2) 05/01/17 05:30 Phosphorus 3.50 mg/dL (2.5-4.5) 04/13/17 04:45 Magnesium 1.80 mg/dL (1.7-2.3) 05/01/17 05:30 Total Bilirubin 0.60 mg/dL (0.1-1.2) 05/01/17 05:30 Direct Bilirubin < 0.2 mg/dL (0-0.2) 04/27/17 05:40 Indirect Bilirubin 0.3 mg/dL 04/25/17 04:51 AST 71 units/L (5-40) H 05/01/17 05:30 ALT 125 units/L (7-56) H 05/01/17 05:30 Alkaline Phosphatase 158 units/L (35-129) H 05/01/17 05:30 Total Creatine Kinase 1404 units/L (55-170) H 04/12/17 21:36 CK-MB (CK-2) 8.0 ng/mL (0.0-4.0) H 04/12/17 21:36 CK-MB (CK-2) Rel Index 0.5 (0-4) 04/12/17 21:36 Troponin T 0.767 ng/mL (0.00-0.029) H* 04/12/17 21:36 C-Reactive Protein 21.80 mg/dL (0.00-1.30) H 03/30/17 16:04 Total Protein 6.7 g/dL (6.3-8.2) 05/01/17 05:30 Albumin 2.6 g/dL (3.9-5) L 05/01/17 05:30 Albumin/Globulin Ratio 0.6 % 05/01/17 05:30 Triglycerides 151 mg/dL (2-149) H 04/01/17 04:29 Cholesterol 164 mg/dL (50-199) 03/29/17 19:52 LDL Cholesterol Direct 81 mg/dL (50-130) 03/29/17 19:52 HDL Cholesterol 44 mg/dL (40-59) 03/29/17 19:52 Cholesterol/HDL Ratio 3.72 % 03/29/17 19:52 Urine Color [place] (Yellow) 04/21/17 22:00 Urine Turbidity Clear (Clear) 04/21/17 22:00 Urine pH 5.0 (5.0-7.0) 04/21/17 22:00 Ur Specific [place] 1.029 (1.003-1.030) 04/21/17 22:00 Urine Protein 30 mg/dl mg/dL (Negative) 04/21/17 22:00 Urine Glucose (UA) Neg mg/dL (Negative) 04/21/17 22:00 Urine Ketones Neg mg/dL (Negative) 04/21/17 22:00 Urine Blood Mod (Negative) 04/21/17 22:00 Urine Nitrite Neg (Negative) 04/21/17 22:00 Urine Bilirubin Neg (Negative) 04/21/17 22:00 Urine Urobilinogen 4.0 mg/dL (<2.0) 04/21/17 22:00 Ur Leukocyte Esterase Neg (Negative) 04/21/17 22:00 Urine WBC (Auto) 10.0 /HPF (0.0-6.0) H 04/21/17 22:00 Urine RBC (Auto) 44.0 /HPF (0.0-6.0) 04/21/17 22:00 U Epithel Cells (Auto) < 1.0 /HPF (0-13.0) 04/21/17 22:00 Amorphous Crystals 1+ 03/30/17 09:45 Urine Mucus 3+ /HPF 04/21/17 22:00 Urine Opiates Screen Presumptive negative 03/30/17 09:45 Urine Methadone Screen Presumptive negative 03/30/17 09:45 Ur Barbiturates Screen Presumptive negative 03/30/17 09:45 Ur Phencyclidine Scrn Presumptive negative 03/30/17 09:45 Ur Amphetamines Screen Presumptive positive 03/30/17 09:45 U Benzodiazepines Scrn Presumptive positive 03/30/17 09:45 Urine Cocaine Screen Presumptive negative 03/30/17 09:45 U Marijuana (THC) Screen Presumptive negative 03/30/17 09:45 Drugs of Abuse Note Disclamer 03/30/17 09:45 Miscellaneous Test Flexitest 1 H 04/25/17 07:07 Blood Type O POSITIVE 03/29/17 11:35 Antibody Screen Negative 03/29/17 11:35
[2017-05-16] MEDS: ZESTRIL PO SCH (11:06)
[2017-05-16] MEDS: ASPIRIN PO SCH (11:07)
[2017-05-16] MEDS: PLAVIX PO SCH (11:07)
[2017-05-16] MEDS: PROTONIX FEEDTUBE SCH (11:07)
--- NOTE | 2017-05-16 15:12 | Progress Note ---
Assessment and Plan Imp: 1. s/p CP arrest 2. Anoxic enceph. 3. Acute respiratory failure, hypoxia 4. s/p Trach/PEG 5. Hypernatremia 6. STEMI/ICMP 7. UTI Rec: 1. 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 Plavix 3. TFs, DVT/GI PPx 4. Repeat CXR 5. Dismal prognosis and bad outcome is expected as explained by neurology and Dr. Ham (see previous notes); they have unrealistic expectations and thus he remains full support/full code 6. Repeat labs in AM 7. Complex patient No family present today Subjective Date of service: 05/16/17 Principal diagnosis: coma,ARV,s/p arrest Interval history: No events. Eyes open but unresponsive. Apnea on PSV today. Cannot give history. Active Medications Albuterol (Proventil) 2.5 mg IH Q3HRT PRN PRN Reason: Shortness Of Breath Last Admin: 04/13/17 21:25 Dose: 2.5 mg Amiodarone HCl (Cordarone) 200 mg PO BID [facility] Last Admin: 05/16/17 11:07 Dose: 200 mg Apixaban (Eliquis) 5 mg PO Q12HR [facility] PRN Reason: Protocol Last Admin: 05/16/17 11:07 Dose: 5 mg Aspirin (Aspirin) 325 mg PO QDAY [facility] Last Admin: 05/16/17 11:07 Dose: 325 mg Atorvastatin Calcium (Lipitor) 20 mg PO QHS [facility] Last Admin: 05/16/17 01:48 Dose: 20 mg Clopidogrel Bisulfate (Plavix) 75 mg PO QDAY [facility] Last Admin: 05/16/17 11:07 Dose: 75 mg Dextrose (D50w (25gm) Syringe) 50 ml IV PRN PRN PRN Reason: Hypoglycemia Hydrophilic Ointment (Vaseline Lip Therapy) 1 applic TP Q2HR PRN PRN Reason: Dry Lips Last Admin: 05/01/17 00:35 Dose: 1 applic Lisinopril (Zestril) 2.5 mg PO QDAY [facility] Last Admin: 05/16/17 11:06 Dose: 2.5 mg Metoprolol Tartrate (Lopressor) 2.5 mg IV Q4HR PRN PRN Reason: HR>130 Last Admin: 04/09/17 19:41 Dose: 2.5 mg Metoprolol Tartrate (Lopressor) 12.5 mg PO BID [facility] Last Admin: 05/16/17 11:06 Dose: 12.5 mg Multi-Ingred Cream/Lotion/Oil/Oint (Artificial Tears Ophth Oint) 1 applic OU Q4HR PRN PRN Reason: Dry Eye(s) Last Admin: 03/31/17 22:51 Dose: 1 applic Pantoprazole (Protonix) 40 mg FEEDTUBE DAILY [facility] Last Admin: 05/16/17 11:07 Dose: 40 mg Scopolamine (Transderm-Scop) 1 each TD Q3D [facility] Last Admin: 05/14/17 14:14 Dose: 1 each Zolpidem Tartrate (Ambien) 10 mg PO QHS PRN PRN Reason: Insomnia Objective Vital Signs - 12hr 05/16/17 05/16/17 05/16/17 03:30 04:00 04:30 Temperature 97.8 F Pulse Rate 80 76 76 Pulse Rate [ 76 From Monitor] Pulse Rate [ 76 Left Dorsalis Pedis] Pulse Rate [ 76 Left Radial] Pulse Rate [ 76 None] Pulse Rate [ 76 Right Dorsalis Pedis] Pulse Rate [ 76 Right Radial] Respiratory 20 20 23 Rate Blood Pressure 100/64 104/62 104/62 O2 Sat by Pulse 100 99 100 Oximetry O2 Sat by Pulse Oximetry [ Assessment] 05/16/17 05/16/17 05/16/17 05:00 05:30 06:00 Temperature Pulse Rate 78 75 75 Pulse Rate [ From Monitor] Pulse Rate [ Left Dorsalis Pedis] Pulse Rate [ Left Radial] Pulse Rate [ None] Pulse Rate [ Right Dorsalis Pedis] Pulse Rate [ Right Radial] Respiratory 19 21 22 Rate Blood Pressure 99/65 99/65 96/63 O2 Sat by Pulse 98 99 Oximetry O2 Sat by Pulse Oximetry [ Assessment] 05/16/17 05/16/17 05/16/17 06:30 07:00 07:30 Temperature Pulse Rate 74 71 73 Pulse Rate [ From Monitor] Pulse Rate [ Left Dorsalis Pedis] Pulse Rate [ Left Radial] Pulse Rate [ None] Pulse Rate [ Right Dorsalis Pedis] Pulse Rate [ Right Radial] Respiratory 16 19 16 Rate Blood Pressure 96/63 93/61 93/61 O2 Sat by Pulse 98 96 100 Oximetry O2 Sat by Pulse Oximetry [ Assessment] 05/16/17 05/16/17 05/16/17 08:00 08:30 09:00 Temperature 98.2 F Pulse Rate 72 71 74 Pulse Rate [ From Monitor] Pulse Rate [ Left Dorsalis Pedis] Pulse Rate [ Left Radial] Pulse Rate [ None] Pulse Rate [ Right Dorsalis Pedis] Pulse Rate [ Right Radial] Respiratory 17 13 20 Rate Blood Pressure 96/60 96/60 90/61 O2 Sat by Pulse 98 100 Oximetry O2 Sat by Pulse Oximetry [ Assessment] 05/16/17 05/16/17 05/16/17 09:16 09:19 09:30 Temperature Pulse Rate 73 70 73 Pulse Rate [ From Monitor] Pulse Rate [ Left Dorsalis Pedis] Pulse Rate [ Left Radial] Pulse Rate [ None] Pulse Rate [ Right Dorsalis Pedis] Pulse Rate [ Right Radial] Respiratory 12 15 Rate Blood Pressure 90/61 90/61 90/61 O2 Sat by Pulse 99 99 97 Oximetry O2 Sat by Pulse Oximetry [ Assessment] 05/16/17 05/16/17 05/16/17 10:00 10:30 11:00 Temperature Pulse Rate 67 65 85 Pulse Rate [ From Monitor] Pulse Rate [ Left Dorsalis Pedis] Pulse Rate [ Left Radial] Pulse Rate [ None] Pulse Rate [ Right Dorsalis Pedis] Pulse Rate [ Right Radial] Respiratory 16 13 14 Rate Blood Pressure 95/57 95/57 95/57 O2 Sat by Pulse 99 99 Oximetry O2 Sat by Pulse Oximetry [ Assessment] 05/16/17 05/16/17 05/16/17 11:30 12:00 12:49 Temperature 99.6 F Pulse Rate 79 82 75 Pulse Rate [ From Monitor] Pulse Rate [ Left Dorsalis Pedis] Pulse Rate [ Left Radial] Pulse Rate [ None] Pulse Rate [ Right Dorsalis Pedis] Pulse Rate [ Right Radial] Respiratory 20 21 Rate Blood Pressure 122/79 123/82 123/82 O2 Sat by Pulse 99 98 99 Oximetry O2 Sat by Pulse Oximetry [ Assessment] 05/16/17 12:56 Temperature Pulse Rate Pulse Rate [ From Monitor] Pulse Rate [ Left Dorsalis Pedis] Pulse Rate [ Left Radial] Pulse Rate [ None] Pulse Rate [ Right Dorsalis Pedis] Pulse Rate [ Right Radial] Respiratory Rate Blood Pressure O2 Sat by Pulse Oximetry O2 Sat by Pulse 100 Oximetry [ Assessment] Constitutional: no acute distress, comatose Eyes: non-icteric ENT: oropharynx moist Neck: supple, other (tracheotomy ) Effort: normal Ascultation: Bilateral: other (coarse BS bilaterally) Percussion: Bilateral: not dull Cardiovascular: regular rate and rhythm Gastrointestinal: normoactive bowel sounds, soft, non-tender, non-distended Integumentary: normal Extremities: no cyanosis, no edema, pink and warm Neurologic: other (nonresponsive with flaccid extremities) Psychiatric: other (eyes open spontaneously but does not follow any voice commands, otherwise nonresponsive except for pain) CBC and BMP: 05/01/17 05:30 05/01/17 05:30 ABG, PT/INR, D-dimer: ABG POC ABG pH 7.524 (7.35-7.45) H 05/09/17 04:19 POC ABG pCO2 34.7 (35-45) L 05/09/17 04:19 POC ABG pO2 107 (80-105) H 05/09/17 04:19 POC ABG HCO3 28.6 05/09/17 04:19 POC ABG Total CO2 30 05/09/17 04:19 POC ABG O2 Sat 99 05/09/17 04:19 PT/INR, D-dimer PT 14.9 Sec. (12.2-14.9) 04/10/17 04:16 INR 1.11 (0.87-1.13) 04/10/17 04:16 Abnormal lab findings: Abnormal Labs 03/29/17 03/29/17 03/29/17 11:35 11:35 11:40 WBC RBC Hgb Hct MCV 98 H MCH 33 H Plt Count Lymph % (Auto) [place] % (Auto) Eos % (Auto) Baso % (Auto) Lymph # Baso # Seg Neutrophils % Lymphocytes % (Manual) Monocytes % (Manual) 9.0 H Nucleated RBC % 1.0 H Seg Neutrophils # Seg Neutrophils # Man Monocytes # (Manual) 0.9 H PT 15.8 H INR 1.20 H Activated Clotting Time POC ABG pH POC ABG pCO2 POC ABG pO2 Sodium Potassium 2.7 L* Chloride 95.3 L Carbon Dioxide 17 L BUN Creatinine Glucose 435 H POC Glucose Calcium Magnesium Direct Bilirubin AST ALT Alkaline Phosphatase Total Creatine Kinase CK-MB (CK-2) CK-MB (CK-2) Rel Index Troponin T C-Reactive Protein Total Protein 6.1 L Albumin 3.5 L Triglycerides Ur Specific [place] Urine WBC (Auto) Miscellaneous Test 03/29/17 03/29/17 03/29/17 12:34 13:10 13:25 WBC RBC Hgb Hct MCV MCH Plt Count Lymph % (Auto) [place] % (Auto) Eos % (Auto) Baso % (Auto) Lymph # Baso # Seg Neutrophils % Lymphocytes % (Manual) Monocytes % (Manual) Nucleated RBC % Seg Neutrophils # Seg Neutrophils # Man Monocytes # (Manual) PT INR Activated Clotting Time 142 H 169 H 175 H POC ABG pH POC ABG pCO2 POC ABG pO2 Sodium Potassium Chloride Carbon Dioxide BUN Creatinine Glucose POC Glucose Calcium Magnesium Direct Bilirubin AST ALT Alkaline Phosphatase Total Creatine Kinase CK-MB (CK-2) CK-MB (CK-2) Rel Index Troponin T C-Reactive Protein Total Protein Albumin Triglycerides Ur Specific [place] Urine WBC (Auto) Miscellaneous Test 03/29/17 03/29/17 03/29/17 14:50 15:18 19:52 WBC RBC Hgb Hct MCV MCH Plt Count Lymph % (Auto) [place] % (Auto) Eos % (Auto) Baso % (Auto) Lymph # Baso # Seg Neutrophils % Lymphocytes % (Manual) Monocytes % (Manual) Nucleated RBC % Seg Neutrophils # Seg Neutrophils # Man Monocytes # (Manual) PT INR Activated Clotting Time 175 H POC ABG pH 7.293 L POC ABG pCO2 POC ABG pO2 602 H Sodium Potassium Chloride Carbon Dioxide BUN Creatinine Glucose POC Glucose Calcium Magnesium Direct Bilirubin AST ALT Alkaline Phosphatase Total Creatine Kinase 7263 H CK-MB (CK-2) > 300.0 H CK-MB (CK-2) Rel Index 4.1 H Troponin T 8.080 H* D C-Reactive Protein Total Protein Albumin Triglycerides 195 H Ur Specific [place] Urine WBC (Auto) Miscellaneous Test 03/30/17 03/30/17 03/30/17 03:50 03:50 06:19 WBC 19.5 H RBC Hgb Hct MCV MCH Plt Count Lymph % (Auto) [place] % (Auto) Eos % (Auto) Baso % (Auto) Lymph # Baso # Seg Neutrophils % Lymphocytes % (Manual) 7.0 L Monocytes % (Manual) Nucleated RBC % Seg Neutrophils # Seg Neutrophils # Man 12.7 H Monocytes # (Manual) 1.4 H PT INR Activated Clotting Time POC ABG pH POC ABG pCO2 28.2 L POC ABG pO2 108 H Sodium Potassium Chloride 108.9 H Carbon Dioxide 15 L BUN 25 H Creatinine Glucose 158 H POC Glucose Calcium 8.1 L Magnesium Direct Bilirubin AST ALT Alkaline Phosphatase Total Creatine Kinase 7963 H CK-MB (CK-2) > 300.0 H CK-MB (CK-2) Rel Index Troponin T 6.850 H* C-Reactive Protein Total Protein Albumin Triglycerides Ur Specific [place] Urine WBC (Auto) Miscellaneous Test 03/30/17 03/30/17 03/31/17 09:45 16:04 02:19 WBC RBC Hgb Hct MCV MCH Plt Count Lymph % (Auto) [place] % (Auto) Eos % (Auto) Baso % (Auto) Lymph # Baso # Seg Neutrophils % Lymphocytes % (Manual) Monocytes % (Manual) Nucleated RBC % Seg Neutrophils # Seg Neutrophils # Man Monocytes # (Manual) PT INR Activated Clotting Time POC ABG pH POC ABG pCO2 POC ABG pO2 Sodium Potassium Chloride Carbon Dioxide BUN Creatinine Glucose POC Glucose 137 H Calcium Magnesium Direct Bilirubin AST ALT Alkaline Phosphatase Total Creatine Kinase CK-MB (CK-2) CK-MB (CK-2) Rel Index Troponin T C-Reactive Protein 21.80 H Total Protein Albumin Triglycerides Ur Specific [place] 1.031 H Urine WBC (Auto) Miscellaneous Test 03/31/17 03/31/17 03/31/17 03:57 06:54 09:22 WBC RBC Hgb Hct MCV MCH Plt Count Lymph % (Auto) [place] % (Auto) Eos % (Auto) Baso % (Auto) Lymph # Baso # Seg Neutrophils % Lymphocytes % (Manual) Monocytes % (Manual) Nucleated RBC % Seg Neutrophils # Seg Neutrophils # Man Monocytes # (Manual) PT INR Activated Clotting Time POC ABG pH 7.475 H POC ABG pCO2 25.4 L POC ABG pO2 62 L Sodium Potassium Chloride Carbon Dioxide 19 L BUN 22 H Creatinine 0.6 L Glucose 148 H POC Glucose 143 H Calcium 8.3 L Magnesium Direct Bilirubin AST ALT Alkaline Phosphatase Total Creatine Kinase CK-MB (CK-2) CK-MB (CK-2) Rel Index Troponin T C-Reactive Protein Total Protein Albumin Triglycerides Ur Specific [place] Urine WBC (Auto) Miscellaneous Test 03/31/17 03/31/17 03/31/17 11:40 17:47 23:38 WBC RBC Hgb Hct MCV MCH Plt Count Lymph % (Auto) [place] % (Auto) Eos % (Auto) Baso % (Auto) Lymph # Baso # Seg Neutrophils % Lymphocytes % (Manual) Monocytes % (Manual) Nucleated RBC % Seg Neutrophils # Seg Neutrophils # Man Monocytes # (Manual) PT INR Activated Clotting Time POC ABG pH POC ABG pCO2 POC ABG pO2 Sodium Potassium Chloride Carbon Dioxide BUN Creatinine Glucose POC Glucose 127 H 137 H 148 H Calcium Magnesium Direct Bilirubin AST ALT Alkaline Phosphatase Total Creatine Kinase CK-MB (CK-2) CK-MB (CK-2) Rel Index Troponin T C-Reactive Protein Total Protein Albumin Triglycerides Ur Specific [place] Urine WBC (Auto) Miscellaneous Test 04/01/17 04/01/17 04/01/17 04:29 05:01 11:54 WBC RBC Hgb Hct MCV MCH Plt Count Lymph % (Auto) [place] % (Auto) Eos % (Auto) Baso % (Auto) Lymph # Baso # Seg Neutrophils % Lymphocytes % (Manual) Monocytes % (Manual) Nucleated RBC % Seg Neutrophils # Seg Neutrophils # Man Monocytes # (Manual) PT INR Activated Clotting Time POC ABG pH 7.513 H POC ABG pCO2 22.1 L POC ABG pO2 64 L Sodium Potassium Chloride Carbon Dioxide BUN Creatinine Glucose POC Glucose 121 H Calcium Magnesium Direct Bilirubin AST ALT Alkaline Phosphatase Total Creatine Kinase CK-MB (CK-2) CK-MB (CK-2) Rel Index Troponin T C-Reactive Protein Total Protein Albumin Triglycerides 151 H Ur Specific [place] Urine WBC (Auto) Miscellaneous Test 04/01/17 04/02/17 04/02/17 18:17 00:11 04:52 WBC RBC Hgb Hct MCV MCH Plt Count Lymph % (Auto) [place] % (Auto) Eos % (Auto) Baso % (Auto) Lymph # Baso # Seg Neutrophils % Lymphocytes % (Manual) Monocytes % (Manual) Nucleated RBC % Seg Neutrophils # Seg Neutrophils # Man Monocytes # (Manual) PT INR Activated Clotting Time POC ABG pH 7.524 H POC ABG pCO2 25.5 L POC ABG pO2 66 L Sodium Potassium Chloride Carbon Dioxide BUN Creatinine Glucose POC Glucose 117 H 122 H Calcium Magnesium Direct Bilirubin AST ALT Alkaline Phosphatase Total Creatine Kinase CK-MB (CK-2) CK-MB (CK-2) Rel Index Troponin T C-Reactive Protein Total Protein Albumin Triglycerides Ur Specific [place] Urine WBC (Auto) Miscellaneous Test 04/02/17 04/02/17 04/02/17 05:18 10:41 12:19 WBC RBC Hgb Hct MCV MCH Plt Count Lymph % (Auto) [place] % (Auto) Eos % (Auto) Baso % (Auto) Lymph # Baso # Seg Neutrophils % Lymphocytes % (Manual) Monocytes % (Manual) Nucleated RBC % Seg Neutrophils # Seg Neutrophils # Man Monocytes # (Manual) PT INR Activated Clotting Time POC ABG pH 7.534 H POC ABG pCO2 27.4 L POC ABG pO2 Sodium Potassium Chloride Carbon Dioxide BUN Creatinine Glucose POC Glucose 132 H 129 H Calcium Magnesium Direct Bilirubin AST ALT Alkaline Phosphatase Total Creatine Kinase CK-MB (CK-2) CK-MB (CK-2) Rel Index Troponin T C-Reactive Protein Total Protein Albumin Triglycerides Ur Specific [place] Urine WBC (Auto) Miscellaneous Test 04/02/17 04/03/17 04/03/17 18:05 00:08 05:09 WBC RBC Hgb Hct MCV MCH Plt Count Lymph % (Auto) [place] % (Auto) Eos % (Auto) Baso % (Auto) Lymph # Baso # Seg Neutrophils % Lymphocytes % (Manual) Monocytes % (Manual) Nucleated RBC % Seg Neutrophils # Seg Neutrophils # Man Monocytes # (Manual) PT INR Activated Clotting Time POC ABG pH 7.455 H POC ABG pCO2 33.2 L POC ABG pO2 120 H Sodium Potassium Chloride Carbon Dioxide BUN Creatinine Glucose POC Glucose 136 H 128 H Calcium Magnesium Direct Bilirubin AST ALT Alkaline Phosphatase Total Creatine Kinase CK-MB (CK-2) CK-MB (CK-2) Rel Index Troponin T C-Reactive Protein Total Protein Albumin Triglycerides Ur Specific [place] Urine WBC (Auto) Miscellaneous Test 04/03/17 04/03/17 04/03/17 06:32 11:54 12:16 WBC 11.9 H RBC Hgb Hct MCV MCH Plt Count 125 L Lymph % (Auto) 4.8 L [place] % (Auto) Eos % (Auto) Baso % (Auto) Lymph # 0.6 L Baso # Seg Neutrophils % 86.7 H Lymphocytes % (Manual) Monocytes % (Manual) Nucleated RBC % Seg Neutrophils # 10.3 H Seg Neutrophils # Man Monocytes # (Manual) PT INR Activated Clotting Time POC ABG pH POC ABG pCO2 POC ABG pO2 Sodium Potassium Chloride Carbon Dioxide BUN Creatinine Glucose POC Glucose 138 H 143 H Calcium Magnesium Direct Bilirubin AST ALT Alkaline Phosphatase Total Creatine Kinase CK-MB (CK-2) CK-MB (CK-2) Rel Index Troponin T C-Reactive Protein Total Protein Albumin Triglycerides Ur Specific [place] Urine WBC (Auto) Miscellaneous Test 04/03/17 04/03/17 04/04/17 17:33 23:59 04:34 WBC RBC Hgb Hct MCV MCH Plt Count Lymph % (Auto) [place] % (Auto) Eos % (Auto) Baso % (Auto) Lymph # Baso # Seg Neutrophils % Lymphocytes % (Manual) Monocytes % (Manual) Nucleated RBC % Seg Neutrophils # Seg Neutrophils # Man Monocytes # (Manual) PT INR Activated Clotting Time POC ABG pH 7.457 H POC ABG pCO2 29.8 L POC ABG pO2 76 L Sodium Potassium Chloride Carbon Dioxide BUN Creatinine Glucose POC Glucose 130 H 155 H Calcium Magnesium Direct Bilirubin AST ALT Alkaline Phosphatase Total Creatine Kinase CK-MB (CK-2) CK-MB (CK-2) Rel Index Troponin T C-Reactive Protein Total Protein Albumin Triglycerides Ur Specific [place] Urine WBC (Auto) Miscellaneous Test 04/04/17 04/04/17 04/04/17 05:27 12:22 18:18 WBC RBC Hgb Hct MCV MCH Plt Count Lymph % (Auto) [place] % (Auto) Eos % (Auto) Baso % (Auto) Lymph # Baso # Seg Neutrophils % Lymphocytes % (Manual) Monocytes % (Manual) Nucleated RBC % Seg Neutrophils # Seg Neutrophils # Man Monocytes # (Manual) PT INR Activated Clotting Time POC ABG pH POC ABG pCO2 POC ABG pO2 Sodium Potassium Chloride Carbon Dioxide BUN Creatinine Glucose POC Glucose 164 H 146 H 130 H Calcium Magnesium Direct Bilirubin AST ALT Alkaline Phosphatase Total Creatine Kinase CK-MB (CK-2) CK-MB (CK-2) Rel Index Troponin T C-Reactive Protein Total Protein Albumin Triglycerides Ur Specific [place] Urine WBC (Auto) Miscellaneous Test 04/05/17 04/05/17 04/05/17 04:43 05:28 11:36 WBC RBC Hgb Hct MCV MCH Plt Count Lymph % (Auto) [place] % (Auto) Eos % (Auto) Baso % (Auto) Lymph # Baso # Seg Neutrophils % Lymphocytes % (Manual) Monocytes % (Manual) Nucleated RBC % Seg Neutrophils # Seg Neutrophils # Man Monocytes # (Manual) PT INR Activated Clotting Time POC ABG pH 7.479 H POC ABG pCO2 33.5 L POC ABG pO2 76 L Sodium Potassium Chloride Carbon Dioxide BUN Creatinine Glucose POC Glucose 145 H 136 H Calcium Magnesium Direct Bilirubin AST ALT Alkaline Phosphatase Total Creatine Kinase CK-MB (CK-2) CK-MB (CK-2) Rel Index Troponin T C-Reactive Protein Total Protein Albumin Triglycerides Ur Specific [place] Urine WBC (Auto) Miscellaneous Test 04/05/17 04/06/17 04/06/17 17:58 00:16 05:26 WBC RBC Hgb Hct MCV MCH Plt Count Lymph % (Auto) [place] % (Auto) Eos % (Auto) Baso % (Auto) Lymph # Baso # Seg Neutrophils % Lymphocytes % (Manual) Monocytes % (Manual) Nucleated RBC % Seg Neutrophils # Seg Neutrophils # Man Monocytes # (Manual) PT INR Activated Clotting Time POC ABG pH POC ABG pCO2 POC ABG pO2 Sodium Potassium Chloride Carbon Dioxide BUN Creatinine Glucose POC Glucose 130 H 159 H 146 H Calcium Magnesium Direct Bilirubin AST ALT Alkaline Phosphatase Total Creatine Kinase CK-MB (CK-2) CK-MB (CK-2) Rel Index Troponin T C-Reactive Protein Total Protein Albumin Triglycerides Ur Specific [place] Urine WBC (Auto) Miscellaneous Test 04/06/17 04/06/17 04/07/17 13:11 16:54 11:45 WBC RBC Hgb Hct MCV MCH Plt Count Lymph % (Auto) [place] % (Auto) Eos % (Auto) Baso % (Auto) Lymph # Baso # Seg Neutrophils % Lymphocytes % (Manual) Monocytes % (Manual) Nucleated RBC % Seg Neutrophils # Seg Neutrophils # Man Monocytes # (Manual) PT INR Activated Clotting Time POC ABG pH 7.517 H POC ABG pCO2 32.1 L POC ABG pO2 Sodium Potassium Chloride Carbon Dioxide BUN Creatinine Glucose POC Glucose 132 H 123 H Calcium Magnesium Direct Bilirubin AST ALT Alkaline Phosphatase Total Creatine Kinase CK-MB (CK-2) CK-MB (CK-2) Rel Index Troponin T C-Reactive Protein Total Protein Albumin Triglycerides Ur Specific [place] Urine WBC (Auto) Miscellaneous Test 04/07/17 04/07/17 04/07/17 12:51 17:40 23:55 WBC RBC Hgb Hct MCV MCH Plt Count Lymph % (Auto) [place] % (Auto) Eos % (Auto) Baso % (Auto) Lymph # Baso # Seg Neutrophils % Lymphocytes % (Manual) Monocytes % (Manual) Nucleated RBC % Seg Neutrophils # Seg Neutrophils # Man Monocytes # (Manual) PT INR Activated Clotting Time POC ABG pH POC ABG pCO2 POC ABG pO2 Sodium Potassium Chloride Carbon Dioxide BUN Creatinine Glucose POC Glucose 138 H 154 H 143 H Calcium Magnesium Direct Bilirubin AST ALT Alkaline Phosphatase Total Creatine Kinase CK-MB (CK-2) CK-MB (CK-2) Rel Index Troponin T C-Reactive Protein Total Protein Albumin Triglycerides Ur Specific [place] Urine WBC (Auto) Miscellaneous Test 04/08/17 04/08/17 04/08/17 05:27 11:14 17:44 WBC RBC Hgb Hct MCV MCH Plt Count Lymph % (Auto) [place] % (Auto) Eos % (Auto) Baso % (Auto) Lymph # Baso # Seg Neutrophils % Lymphocytes % (Manual) Monocytes % (Manual) Nucleated RBC % Seg Neutrophils # Seg Neutrophils # Man Monocytes # (Manual) PT INR Activated Clotting Time POC ABG pH POC ABG pCO2 POC ABG pO2 Sodium Potassium Chloride Carbon Dioxide BUN Creatinine Glucose POC Glucose 142 H 153 H 129 H Calcium Magnesium Direct Bilirubin AST ALT Alkaline Phosphatase Total Creatine Kinase CK-MB (CK-2) CK-MB (CK-2) Rel Index Troponin T C-Reactive Protein Total Protein Albumin Triglycerides Ur Specific [place] Urine WBC (Auto) Miscellaneous Test 04/09/17 04/09/17 04/09/17 08:20 11:21 17:37 WBC RBC Hgb Hct MCV MCH Plt Count Lymph % (Auto) [place] % (Auto) Eos % (Auto) Baso % (Auto) Lymph # Baso # Seg Neutrophils % Lymphocytes % (Manual) Monocytes % (Manual) Nucleated RBC % Seg Neutrophils # Seg Neutrophils # Man Monocytes # (Manual) PT INR Activated Clotting Time POC ABG pH POC ABG pCO2 POC ABG pO2 Sodium 147 H Potassium Chloride 108.8 H Carbon Dioxide BUN 39 H Creatinine 0.5 L Glucose 138 H POC Glucose 152 H 109 H Calcium Magnesium Direct Bilirubin AST ALT Alkaline Phosphatase Total Creatine Kinase CK-MB (CK-2) CK-MB (CK-2) Rel Index Troponin T C-Reactive Protein Total Protein Albumin Triglycerides Ur Specific [place] Urine WBC (Auto) Miscellaneous Test 04/10/17 04/10/17 04/10/17 00:13 04:16 04:16 WBC RBC Hgb 11.5 L Hct MCV 96 H MCH Plt Count 103 L Lymph % (Auto) 11.1 L [place] % (Auto) Eos % (Auto) Baso % (Auto) Lymph # Baso # Seg Neutrophils % 81.5 H Lymphocytes % (Manual) Monocytes % (Manual) Nucleated RBC % Seg Neutrophils # 8.8 H Seg Neutrophils # Man Monocytes # (Manual) PT INR Activated Clotting Time POC ABG pH POC ABG pCO2 POC ABG pO2 Sodium 148 H Potassium Chloride 109.0 H Carbon Dioxide BUN 36 H Creatinine 0.5 L Glucose 131 H POC Glucose 127 H Calcium 8.1 L Magnesium 2.40 H Direct Bilirubin AST 206 H ALT 228 H Alkaline Phosphatase 178 H Total Creatine Kinase CK-MB (CK-2) CK-MB (CK-2) Rel Index Troponin T C-Reactive Protein Total Protein Albumin 2.8 L Triglycerides Ur Specific [place] Urine WBC (Auto) Miscellaneous Test 04/10/17 04/10/17 04/10/17 06:01 11:57 18:27 WBC RBC Hgb Hct MCV MCH Plt Count Lymph % (Auto) [place] % (Auto) Eos % (Auto) Baso % (Auto) Lymph # Baso # Seg Neutrophils % Lymphocytes % (Manual) Monocytes % (Manual) Nucleated RBC % Seg Neutrophils # Seg Neutrophils # Man Monocytes # (Manual) PT INR Activated Clotting Time POC ABG pH POC ABG pCO2 POC ABG pO2 Sodium Potassium Chloride Carbon Dioxide BUN Creatinine Glucose POC Glucose 108 H 154 H 130 H Calcium Magnesium Direct Bilirubin AST ALT Alkaline Phosphatase Total Creatine Kinase CK-MB (CK-2) CK-MB (CK-2) Rel Index Troponin T C-Reactive Protein Total Protein Albumin Triglycerides Ur Specific [place] Urine WBC (Auto) Miscellaneous Test 04/11/17 04/11/17 04/12/17 12:25 17:10 00:22 WBC RBC Hgb Hct MCV MCH Plt Count Lymph % (Auto) [place] % (Auto) Eos % (Auto) Baso % (Auto) Lymph # Baso # Seg Neutrophils % Lymphocytes % (Manual) Monocytes % (Manual) Nucleated RBC % Seg Neutrophils # Seg Neutrophils # Man Monocytes # (Manual) PT INR Activated Clotting Time POC ABG pH POC ABG pCO2 POC ABG pO2 Sodium Potassium Chloride Carbon Dioxide BUN Creatinine Glucose POC Glucose 107 H 129 H 128 H Calcium Magnesium Direct Bilirubin AST ALT Alkaline Phosphatase Total Creatine Kinase CK-MB (CK-2) CK-MB (CK-2) Rel Index Troponin T C-Reactive Protein Total Protein Albumin Triglycerides Ur Specific [place] Urine WBC (Auto) Miscellaneous Test 04/12/17 04/12/17 04/12/17 05:00 11:57 17:47 WBC RBC Hgb Hct MCV MCH Plt Count Lymph % (Auto) [place] % (Auto) Eos % (Auto) Baso % (Auto) Lymph # Baso # Seg Neutrophils % Lymphocytes % (Manual) Monocytes % (Manual) Nucleated RBC % Seg Neutrophils # Seg Neutrophils # Man Monocytes # (Manual) PT INR Activated Clotting Time POC ABG pH POC ABG pCO2 POC ABG pO2 Sodium Potassium Chloride Carbon Dioxide BUN Creatinine Glucose POC Glucose 140 H 142 H Calcium Magnesium Direct Bilirubin AST 158 H ALT 184 H Alkaline Phosphatase 170 H Total Creatine Kinase CK-MB (CK-2) CK-MB (CK-2) Rel Index Troponin T C-Reactive Protein Total Protein Albumin 2.8 L Triglycerides Ur Specific [place] Urine WBC (Auto) Miscellaneous Test 04/12/17 04/12/17 04/13/17 21:36 21:36 01:37 WBC RBC Hgb Hct MCV MCH Plt Count Lymph % (Auto) [place] % (Auto) Eos % (Auto) Baso % (Auto) Lymph # Baso # Seg Neutrophils % Lymphocytes % (Manual) Monocytes % (Manual) Nucleated RBC % Seg Neutrophils # Seg Neutrophils # Man Monocytes # (Manual) PT INR Activated Clotting Time POC ABG pH POC ABG pCO2 POC ABG pO2 Sodium Potassium Chloride Carbon Dioxide BUN Creatinine Glucose POC Glucose 126 H Calcium Magnesium Direct Bilirubin AST ALT Alkaline Phosphatase Total Creatine Kinase 1404 H CK-MB (CK-2) 8.0 H CK-MB (CK-2) Rel Index Troponin T 0.767 H* C-Reactive Protein Total Protein Albumin Triglycerides Ur Specific [place] Urine WBC (Auto) Miscellaneous Test 04/13/17 04/13/17 04/13/17 04:45 04:52 12:17 WBC RBC Hgb Hct MCV MCH Plt Count Lymph % (Auto) [place] % (Auto) Eos % (Auto) Baso % (Auto) Lymph # Baso # Seg Neutrophils % Lymphocytes % (Manual) Monocytes % (Manual) Nucleated RBC % Seg Neutrophils # Seg Neutrophils # Man Monocytes # (Manual) PT INR Activated Clotting Time POC ABG pH POC ABG pCO2 POC ABG pO2 Sodium 148 H Potassium Chloride 112.8 H Carbon Dioxide BUN 33 H Creatinine 0.4 L Glucose 121 H POC Glucose 126 H 149 H Calcium Magnesium Direct Bilirubin AST 160 H ALT 189 H Alkaline Phosphatase 166 H Total Creatine Kinase CK-MB (CK-2) CK-MB (CK-2) Rel Index Troponin T C-Reactive Protein Total Protein Albumin 2.6 L Triglycerides Ur Specific [place] Urine WBC (Auto) Miscellaneous Test 04/13/17 04/14/17 04/14/17 17:45 00:20 00:45 WBC RBC Hgb Hct MCV MCH Plt Count Lymph % (Auto) [place] % (Auto) Eos % (Auto) Baso % (Auto) Lymph # Baso # Seg Neutrophils % Lymphocytes % (Manual) Monocytes % (Manual) Nucleated RBC % Seg Neutrophils # Seg Neutrophils # Man Monocytes # (Manual) PT INR Activated Clotting Time POC ABG pH POC ABG pCO2 POC ABG pO2 Sodium Potassium Chloride Carbon Dioxide BUN Creatinine Glucose POC Glucose 130 H 144 H 144 H Calcium Magnesium Direct Bilirubin AST ALT Alkaline Phosphatase Total Creatine Kinase CK-MB (CK-2) CK-MB (CK-2) Rel Index Troponin T C-Reactive Protein Total Protein Albumin Triglycerides Ur Specific [place] Urine WBC (Auto) Miscellaneous Test 04/14/17 04/14/17 04/14/17 05:40 11:06 11:31 WBC RBC Hgb Hct MCV MCH Plt Count Lymph % (Auto) [place] % (Auto) Eos % (Auto) Baso % (Auto) Lymph # Baso # Seg Neutrophils % Lymphocytes % (Manual) Monocytes % (Manual) Nucleated RBC % Seg Neutrophils # Seg Neutrophils # Man Monocytes # (Manual) PT INR Activated Clotting Time POC ABG pH POC ABG pCO2 POC ABG pO2 Sodium Potassium Chloride Carbon Dioxide BUN Creatinine Glucose POC Glucose 139 H 123 H Calcium Magnesium Direct Bilirubin AST ALT Alkaline Phosphatase Total Creatine Kinase CK-MB (CK-2) CK-MB (CK-2) Rel Index Troponin T C-Reactive Protein Total Protein Albumin Triglycerides Ur Specific [place] 1.033 H Urine WBC (Auto) > 182.0 H Miscellaneous Test 04/14/17 04/14/17 04/15/17 18:00 23:52 05:15 WBC 12.5 H RBC 3.38 L Hgb 10.6 L Hct 32.7 L MCV 97 H MCH Plt Count 107 L Lymph % (Auto) 8.7 L [place] % (Auto) Eos % (Auto) Baso % (Auto) Lymph # 1.1 L Baso # Seg Neutrophils % 86.1 H Lymphocytes % (Manual) Monocytes % (Manual) Nucleated RBC % Seg Neutrophils # 10.7 H Seg Neutrophils # Man Monocytes # (Manual) PT INR Activated Clotting Time POC ABG pH POC ABG pCO2 POC ABG pO2 Sodium Potassium Chloride Carbon Dioxide BUN Creatinine Glucose POC Glucose 133 H 133 H Calcium Magnesium Direct Bilirubin AST ALT Alkaline Phosphatase Total Creatine Kinase CK-MB (CK-2) CK-MB (CK-2) Rel Index Troponin T C-Reactive Protein Total Protein Albumin Triglycerides Ur Specific [place] Urine WBC (Auto) Miscellaneous Test 04/15/17 04/15/17 04/15/17 05:15 05:25 11:50 WBC RBC Hgb Hct MCV MCH Plt Count Lymph % (Auto) [place] % (Auto) Eos % (Auto) Baso % (Auto) Lymph # Baso # Seg Neutrophils % Lymphocytes % (Manual) Monocytes % (Manual) Nucleated RBC % Seg Neutrophils # Seg Neutrophils # Man Monocytes # (Manual) PT INR Activated Clotting Time POC ABG pH POC ABG pCO2 POC ABG pO2 Sodium 149 H Potassium 3.5 L Chloride 114.1 H Carbon Dioxide 21 L BUN 29 H Creatinine 0.4 L Glucose 128 H POC Glucose 133 H 107 H Calcium 8.3 L Magnesium Direct Bilirubin 0.4 H AST 149 H ALT 182 H Alkaline Phosphatase 143 H Total Creatine Kinase CK-MB (CK-2) CK-MB (CK-2) Rel Index Troponin T C-Reactive Protein Total Protein Albumin 2.5 L Triglycerides Ur Specific [place] Urine WBC (Auto) Miscellaneous Test 04/15/17 04/16/17 04/16/17 16:55 00:02 03:17 WBC RBC 3.39 L Hgb 10.5 L Hct 32.4 L MCV 96 H MCH Plt Count 106 L Lymph % (Auto) 6.7 L [place] % (Auto) Eos % (Auto) Baso % (Auto) Lymph # 0.6 L Baso # Seg Neutrophils % 86.8 H Lymphocytes % (Manual) Monocytes % (Manual) Nucleated RBC % Seg Neutrophils # 8.2 H Seg Neutrophils # Man Monocytes # (Manual) PT INR Activated Clotting Time POC ABG pH POC ABG pCO2 POC ABG pO2 Sodium Potassium Chloride Carbon Dioxide BUN Creatinine Glucose POC Glucose 146 H 148 H Calcium Magnesium Direct Bilirubin AST ALT Alkaline Phosphatase Total Creatine Kinase CK-MB (CK-2) CK-MB (CK-2) Rel Index Troponin T C-Reactive Protein Total Protein Albumin Triglycerides Ur Specific [place] Urine WBC (Auto) Miscellaneous Test 04/16/17 04/16/17 04/16/17 03:17 05:19 11:13 WBC RBC Hgb Hct MCV MCH Plt Count Lymph % (Auto) [place] % (Auto) Eos % (Auto) Baso % (Auto) Lymph # Baso # Seg Neutrophils % Lymphocytes % (Manual) Monocytes % (Manual) Nucleated RBC % Seg Neutrophils # Seg Neutrophils # Man Monocytes # (Manual) PT INR Activated Clotting Time POC ABG pH POC ABG pCO2 POC ABG pO2 Sodium 149 H Potassium Chloride 111.1 H Carbon Dioxide 20 L BUN 27 H Creatinine 0.3 L Glucose 156 H POC Glucose 171 H 169 H Calcium 8.3 L Magnesium Direct Bilirubin AST ALT Alkaline Phosphatase Total Creatine Kinase CK-MB (CK-2) CK-MB (CK-2) Rel Index Troponin T C-Reactive Protein Total Protein Albumin Triglycerides Ur Specific [place] Urine WBC (Auto) Miscellaneous Test 04/16/17 04/17/17 04/17/17 17:03 00:00 05:09 WBC RBC Hgb Hct MCV MCH Plt Count Lymph % (Auto) [place] % (Auto) Eos % (Auto) Baso % (Auto) Lymph # Baso # Seg Neutrophils % Lymphocytes % (Manual) Monocytes % (Manual) Nucleated RBC % Seg Neutrophils # Seg Neutrophils # Man Monocytes # (Manual) PT INR Activated Clotting Time POC ABG pH POC ABG pCO2 POC ABG pO2 Sodium Potassium Chloride Carbon Dioxide BUN Creatinine Glucose POC Glucose 151 H 165 H 145 H Calcium Magnesium Direct Bilirubin AST ALT Alkaline Phosphatase Total Creatine Kinase CK-MB (CK-2) CK-MB (CK-2) Rel Index Troponin T C-Reactive Protein Total Protein Albumin Triglycerides Ur Specific [place] Urine WBC (Auto) Miscellaneous Test 04/17/17 04/17/17 04/18/17 11:38 17:47 00:01 WBC RBC Hgb Hct MCV MCH Plt Count Lymph % (Auto) [place] % (Auto) Eos % (Auto) Baso % (Auto) Lymph # Baso # Seg Neutrophils % Lymphocytes % (Manual) Monocytes % (Manual) Nucleated RBC % Seg Neutrophils # Seg Neutrophils # Man Monocytes # (Manual) PT INR Activated Clotting Time POC ABG pH POC ABG pCO2 POC ABG pO2 Sodium Potassium Chloride Carbon Dioxide BUN Creatinine Glucose POC Glucose 170 H 161 H 131 H Calcium Magnesium Direct Bilirubin AST ALT Alkaline Phosphatase Total Creatine Kinase CK-MB (CK-2) CK-MB (CK-2) Rel Index Troponin T C-Reactive Protein Total Protein Albumin Triglycerides Ur Specific [place] Urine WBC (Auto) Miscellaneous Test 04/18/17 04/18/17 04/18/17 03:55 03:55 05:30 WBC RBC 3.05 L Hgb 9.8 L Hct 29.0 L MCV 95 H MCH Plt Count 113 L Lymph % (Auto) [place] % (Auto) Eos % (Auto) 5.3 H Baso % (Auto) Lymph # Baso # Seg Neutrophils % 71.5 H Lymphocytes % (Manual) Monocytes % (Manual) Nucleated RBC % Seg Neutrophils # Seg Neutrophils # Man Monocytes # (Manual) PT INR Activated Clotting Time POC ABG pH 7.460 H POC ABG pCO2 30.8 L POC ABG pO2 129 H Sodium Potassium Chloride Carbon Dioxide 21 L BUN 25 H Creatinine 0.4 L Glucose 123 H POC Glucose Calcium 8.3 L Magnesium Direct Bilirubin AST ALT Alkaline Phosphatase Total Creatine Kinase CK-MB (CK-2) CK-MB (CK-2) Rel Index Troponin T C-Reactive Protein Total Protein Albumin Triglycerides Ur Specific [place] Urine WBC (Auto) Miscellaneous Test 04/18/17 04/18/17 04/19/17 17:10 23:40 04:36 WBC RBC 3.21 L Hgb 10.2 L Hct 30.4 L MCV 95 H MCH Plt Count 131 L Lymph % (Auto) 12.1 L [place] % (Auto) Eos % (Auto) 4.7 H Baso % (Auto) 2.4 H Lymph # 0.9 L Baso # 0.2 H Seg Neutrophils % 75.0 H Lymphocytes % (Manual) Monocytes % (Manual) Nucleated RBC % Seg Neutrophils # Seg Neutrophils # Man Monocytes # (Manual) PT INR Activated Clotting Time POC ABG pH POC ABG pCO2 POC ABG pO2 Sodium Potassium Chloride Carbon Dioxide BUN Creatinine Glucose POC Glucose 135 H 157 H Calcium Magnesium Direct Bilirubin AST ALT Alkaline Phosphatase Total Creatine Kinase CK-MB (CK-2) CK-MB (CK-2) Rel Index Troponin T C-Reactive Protein Total Protein Albumin Triglycerides Ur Specific [place] Urine WBC (Auto) Miscellaneous Test 04/19/17 04/19/17 04/19/17 04:36 05:12 06:50 WBC RBC Hgb Hct MCV MCH Plt Count Lymph % (Auto) [place] % (Auto) Eos % (Auto) Baso % (Auto) Lymph # Baso # Seg Neutrophils % Lymphocytes % (Manual) Monocytes % (Manual) Nucleated RBC % Seg Neutrophils # Seg Neutrophils # Man Monocytes # (Manual) PT INR Activated Clotting Time POC ABG pH 7.516 H POC ABG pCO2 28.0 L POC ABG pO2 Sodium Potassium Chloride Carbon Dioxide 21 L BUN 23 H Creatinine 0.2 L Glucose 137 H POC Glucose 131 H Calcium 7.9 L Magnesium Direct Bilirubin AST ALT Alkaline Phosphatase Total Creatine Kinase CK-MB (CK-2) CK-MB (CK-2) Rel Index Troponin T C-Reactive Protein Total Protein Albumin Triglycerides Ur Specific [place] Urine WBC (Auto) Miscellaneous Test 04/19/17 04/19/17 04/20/17 12:36 17:42 00:12 WBC RBC Hgb Hct MCV MCH Plt Count Lymph % (Auto) [place] % (Auto) Eos % (Auto) Baso % (Auto) Lymph # Baso # Seg Neutrophils % Lymphocytes % (Manual) Monocytes % (Manual) Nucleated RBC % Seg Neutrophils # Seg Neutrophils # Man Monocytes # (Manual) PT INR Activated Clotting Time POC ABG pH POC ABG pCO2 POC ABG pO2 Sodium Potassium Chloride Carbon Dioxide BUN Creatinine Glucose POC Glucose 128 H 140 H 132 H Calcium Magnesium Direct Bilirubin AST ALT Alkaline Phosphatase Total Creatine Kinase CK-MB (CK-2) CK-MB (CK-2) Rel Index Troponin T C-Reactive Protein Total Protein Albumin Triglycerides Ur Specific [place] Urine WBC (Auto) Miscellaneous Test 04/20/17 04/20/17 04/20/17 03:35 03:35 05:10 WBC RBC 3.34 L Hgb 10.4 L Hct 31.6 L MCV 95 H MCH Plt Count Lymph % (Auto) 12.9 L [place] % (Auto) Eos % (Auto) Baso % (Auto) Lymph # Baso # Seg Neutrophils % 77.3 H Lymphocytes % (Manual) Monocytes % (Manual) Nucleated RBC % Seg Neutrophils # Seg Neutrophils # Man Monocytes # (Manual) PT INR Activated Clotting Time POC ABG pH POC ABG pCO2 POC ABG pO2 Sodium Potassium Chloride Carbon Dioxide BUN Creatinine 0.3 L Glucose 155 H POC Glucose 135 H Calcium 7.8 L Magnesium Direct Bilirubin AST ALT Alkaline Phosphatase Total Creatine Kinase CK-MB (CK-2) CK-MB (CK-2) Rel Index Troponin T C-Reactive Protein Total Protein Albumin Triglycerides Ur Specific [place] Urine WBC (Auto) Miscellaneous Test 04/20/17 04/20/17 04/21/17 12:49 18:21 00:05 WBC RBC Hgb Hct MCV MCH Plt Count Lymph % (Auto) [place] % (Auto) Eos % (Auto) Baso % (Auto) Lymph # Baso # Seg Neutrophils % Lymphocytes % (Manual) Monocytes % (Manual) Nucleated RBC % Seg Neutrophils # Seg Neutrophils # Man Monocytes # (Manual) PT INR Activated Clotting Time POC ABG pH POC ABG pCO2 POC ABG pO2 Sodium Potassium Chloride Carbon Dioxide BUN Creatinine Glucose POC Glucose 155 H 165 H 141 H Calcium Magnesium Direct Bilirubin AST ALT Alkaline Phosphatase Total Creatine Kinase CK-MB (CK-2) CK-MB (CK-2) Rel Index Troponin T C-Reactive Protein Total Protein Albumin Triglycerides Ur Specific [place] Urine WBC (Auto) Miscellaneous Test 04/21/17 04/21/17 04/21/17 06:00 12:11 17:04 WBC RBC Hgb Hct MCV MCH Plt Count Lymph % (Auto) [place] % (Auto) Eos % (Auto) Baso % (Auto) Lymph # Baso # Seg Neutrophils % Lymphocytes % (Manual) Monocytes % (Manual) Nucleated RBC % Seg Neutrophils # Seg Neutrophils # Man Monocytes # (Manual) PT INR Activated Clotting Time POC ABG pH POC ABG pCO2 POC ABG pO2 Sodium Potassium Chloride Carbon Dioxide BUN Creatinine Glucose POC Glucose 152 H 165 H 156 H Calcium Magnesium Direct Bilirubin AST ALT Alkaline Phosphatase Total Creatine Kinase CK-MB (CK-2) CK-MB (CK-2) Rel Index Troponin T C-Reactive Protein Total Protein Albumin Triglycerides Ur Specific [place] Urine WBC (Auto) Miscellaneous Test 04/21/17 04/21/17 04/22/17 22:00 23:59 05:49 WBC RBC Hgb Hct MCV MCH Plt Count Lymph % (Auto) [place] % (Auto) Eos % (Auto) Baso % (Auto) Lymph # Baso # Seg Neutrophils % Lymphocytes % (Manual) Monocytes % (Manual) Nucleated RBC % Seg Neutrophils # Seg Neutrophils # Man Monocytes # (Manual) PT INR Activated Clotting Time POC ABG pH POC ABG pCO2 POC ABG pO2 Sodium Potassium Chloride Carbon Dioxide BUN Creatinine Glucose POC Glucose 166 H 173 H Calcium Magnesium Direct Bilirubin AST ALT Alkaline Phosphatase Total Creatine Kinase CK-MB (CK-2) CK-MB (CK-2) Rel Index Troponin T C-Reactive Protein Total Protein Albumin Triglycerides Ur Specific [place] Urine WBC (Auto) 10.0 H Miscellaneous Test 04/22/17 04/22/17 04/23/17 11:11 18:04 00:37 WBC RBC Hgb Hct MCV MCH Plt Count Lymph % (Auto) [place] % (Auto) Eos % (Auto) Baso % (Auto) Lymph # Baso # Seg Neutrophils % Lymphocytes % (Manual) Monocytes % (Manual) Nucleated RBC % Seg Neutrophils # Seg Neutrophils # Man Monocytes # (Manual) PT INR Activated Clotting Time POC ABG pH POC ABG pCO2 POC ABG pO2 Sodium Potassium Chloride Carbon Dioxide BUN Creatinine Glucose POC Glucose 172 H 140 H 135 H Calcium Magnesium Direct Bilirubin AST ALT Alkaline Phosphatase Total Creatine Kinase CK-MB (CK-2) CK-MB (CK-2) Rel Index Troponin T C-Reactive Protein Total Protein Albumin Triglycerides Ur Specific [place] Urine WBC (Auto) Miscellaneous Test 04/23/17 04/23/17 04/23/17 05:33 06:20 11:10 WBC RBC 3.19 L Hgb 9.9 L Hct 30.0 L MCV MCH Plt Count Lymph % (Auto) 8.0 L [place] % (Auto) Eos % (Auto) Baso % (Auto) Lymph # 0.8 L Baso # Seg Neutrophils % 84.5 H Lymphocytes % (Manual) Monocytes % (Manual) Nucleated RBC % Seg Neutrophils # 8.2 H Seg Neutrophils # Man Monocytes # (Manual) PT INR Activated Clotting Time POC ABG pH POC ABG pCO2 POC ABG pO2 Sodium Potassium Chloride Carbon Dioxide BUN Creatinine Glucose POC Glucose 134 H 134 H Calcium Magnesium Direct Bilirubin AST ALT Alkaline Phosphatase Total Creatine Kinase CK-MB (CK-2) CK-MB (CK-2) Rel Index Troponin T C-Reactive Protein Total Protein Albumin Triglycerides Ur Specific [place] Urine WBC (Auto) Miscellaneous Test 04/23/17 04/24/17 04/24/17 17:26 00:53 06:46 WBC RBC Hgb Hct MCV MCH Plt Count Lymph % (Auto) [place] % (Auto) Eos % (Auto) Baso % (Auto) Lymph # Baso # Seg Neutrophils % Lymphocytes % (Manual) Monocytes % (Manual) Nucleated RBC % Seg Neutrophils # Seg Neutrophils # Man Monocytes # (Manual) PT INR Activated Clotting Time POC ABG pH POC ABG pCO2 POC ABG pO2 Sodium Potassium Chloride Carbon Dioxide BUN Creatinine Glucose POC Glucose 164 H 146 H 125 H Calcium Magnesium Direct Bilirubin AST ALT Alkaline Phosphatase Total Creatine Kinase CK-MB (CK-2) CK-MB (CK-2) Rel Index Troponin T C-Reactive Protein Total Protein Albumin Triglycerides Ur Specific [place] Urine WBC (Auto) Miscellaneous Test 04/24/17 04/24/17 04/24/17 11:55 17:50 23:36 WBC RBC Hgb Hct MCV MCH Plt Count Lymph % (Auto) [place] % (Auto) Eos % (Auto) Baso % (Auto) Lymph # Baso # Seg Neutrophils % Lymphocytes % (Manual) Monocytes % (Manual) Nucleated RBC % Seg Neutrophils # Seg Neutrophils # Man Monocytes # (Manual) PT INR Activated Clotting Time POC ABG pH POC ABG pCO2 POC ABG pO2 Sodium Potassium Chloride Carbon Dioxide BUN Creatinine Glucose POC Glucose 156 H 146 H 131 H Calcium Magnesium Direct Bilirubin AST ALT Alkaline Phosphatase Total Creatine Kinase CK-MB (CK-2) CK-MB (CK-2) Rel Index Troponin T C-Reactive Protein Total Protein Albumin Triglycerides Ur Specific [place] Urine WBC (Auto) Miscellaneous Test 04/25/17 04/25/17 04/25/17 04:51 05:16 07:07 WBC RBC Hgb Hct MCV MCH Plt Count Lymph % (Auto) [place] % (Auto) Eos % (Auto) Baso % (Auto) Lymph # Baso # Seg Neutrophils % Lymphocytes % (Manual) Monocytes % (Manual) Nucleated RBC % Seg Neutrophils # Seg Neutrophils # Man Monocytes # (Manual) PT INR Activated Clotting Time POC ABG pH POC ABG pCO2 POC ABG pO2 Sodium Potassium Chloride Carbon Dioxide BUN Creatinine Glucose POC Glucose 139 H Calcium Magnesium Direct Bilirubin AST 105 H ALT 204 H Alkaline Phosphatase 189 H Total Creatine Kinase CK-MB (CK-2) CK-MB (CK-2) Rel Index Troponin T C-Reactive Protein Total Protein Albumin 2.4 L Triglycerides Ur Specific [place] Urine WBC (Auto) Miscellaneous Test Flexitest 1 H 04/25/17 04/25/17 04/25/17 12:29 17:23 23:32 WBC RBC Hgb Hct MCV MCH Plt Count Lymph % (Auto) [place] % (Auto) Eos % (Auto) Baso % (Auto) Lymph # Baso # Seg Neutrophils % Lymphocytes % (Manual) Monocytes % (Manual) Nucleated RBC % Seg Neutrophils # Seg Neutrophils # Man Monocytes # (Manual) PT INR Activated Clotting Time POC ABG pH POC ABG pCO2 POC ABG pO2 Sodium Potassium Chloride Carbon Dioxide BUN Creatinine Glucose POC Glucose 132 H 133 H 128 H Calcium Magnesium Direct Bilirubin AST ALT Alkaline Phosphatase Total Creatine Kinase CK-MB (CK-2) CK-MB (CK-2) Rel Index Troponin T C-Reactive Protein Total Protein Albumin Triglycerides Ur Specific [place] Urine WBC (Auto) Miscellaneous Test 04/26/17 04/26/17 04/26/17 05:24 11:28 17:09 WBC RBC Hgb Hct MCV MCH Plt Count Lymph % (Auto) [place] % (Auto) Eos % (Auto) Baso % (Auto) Lymph # Baso # Seg Neutrophils % Lymphocytes % (Manual) Monocytes % (Manual) Nucleated RBC % Seg Neutrophils # Seg Neutrophils # Man Monocytes # (Manual) PT INR Activated Clotting Time POC ABG pH POC ABG pCO2 POC ABG pO2 Sodium Potassium Chloride Carbon Dioxide BUN Creatinine Glucose POC Glucose 132 H 146 H 141 H Calcium Magnesium Direct Bilirubin AST ALT Alkaline Phosphatase Total Creatine Kinase CK-MB (CK-2) CK-MB (CK-2) Rel Index Troponin T C-Reactive Protein Total Protein Albumin Triglycerides Ur Specific [place] Urine WBC (Auto) Miscellaneous Test 04/26/17 04/27/17 04/27/17 23:52 05:40 05:40 WBC RBC 3.22 L Hgb 10.0 L Hct 29.9 L MCV MCH Plt Count Lymph % (Auto) [place] % (Auto) Eos % (Auto) Baso % (Auto) Lymph # Baso # Seg Neutrophils % 76.6 H Lymphocytes % (Manual) Monocytes % (Manual) Nucleated RBC % Seg Neutrophils # Seg Neutrophils # Man Monocytes # (Manual) PT INR Activated Clotting Time POC ABG pH POC ABG pCO2 POC ABG pO2 Sodium Potassium Chloride Carbon Dioxide BUN Creatinine Glucose POC Glucose 140 H Calcium Magnesium Direct Bilirubin AST 66 H ALT 137 H Alkaline Phosphatase 169 H Total Creatine Kinase CK-MB (CK-2) CK-MB (CK-2) Rel Index Troponin T C-Reactive Protein Total Protein 6.2 L Albumin 2.6 L Triglycerides Ur Specific [place] Urine WBC (Auto) Miscellaneous Test 04/27/17 04/27/17 04/27/17 05:40 06:10 11:13 WBC RBC Hgb Hct MCV MCH Plt Count Lymph % (Auto) [place] % (Auto) Eos % (Auto) Baso % (Auto) Lymph # Baso # Seg Neutrophils % Lymphocytes % (Manual) Monocytes % (Manual) Nucleated RBC % Seg Neutrophils # Seg Neutrophils # Man Monocytes # (Manual) PT INR Activated Clotting Time POC ABG pH POC ABG pCO2 POC ABG pO2 Sodium Potassium Chloride Carbon Dioxide BUN Creatinine 0.2 L Glucose 139 H POC Glucose 130 H 151 H Calcium Magnesium Direct Bilirubin AST ALT Alkaline Phosphatase Total Creatine Kinase CK-MB (CK-2) CK-MB (CK-2) Rel Index Troponin T C-Reactive Protein Total Protein Albumin Triglycerides Ur Specific [place] Urine WBC (Auto) Miscellaneous Test 04/27/17 04/27/17 04/28/17 17:37 23:19 05:24 WBC RBC Hgb Hct MCV MCH Plt Count Lymph % (Auto) [place] % (Auto) Eos % (Auto) Baso % (Auto) Lymph # Baso # Seg Neutrophils % Lymphocytes % (Manual) Monocytes % (Manual) Nucleated RBC % Seg Neutrophils # Seg Neutrophils # Man Monocytes # (Manual) PT INR Activated Clotting Time POC ABG pH POC ABG pCO2 POC ABG pO2 Sodium Potassium Chloride Carbon Dioxide BUN Creatinine Glucose POC Glucose 159 H 130 H 132 H Calcium Magnesium Direct Bilirubin AST ALT Alkaline Phosphatase Total Creatine Kinase CK-MB (CK-2) CK-MB (CK-2) Rel Index Troponin T C-Reactive Protein Total Protein Albumin Triglycerides Ur Specific [place] Urine WBC (Auto) Miscellaneous Test 04/28/17 04/28/17 04/28/17 11:15 17:38 23:23 WBC RBC Hgb Hct MCV MCH Plt Count Lymph % (Auto) [place] % (Auto) Eos % (Auto) Baso % (Auto) Lymph # Baso # Seg Neutrophils % Lymphocytes % (Manual) Monocytes % (Manual) Nucleated RBC % Seg Neutrophils # Seg Neutrophils # Man Monocytes # (Manual) PT INR Activated Clotting Time POC ABG pH POC ABG pCO2 POC ABG pO2 Sodium Potassium Chloride Carbon Dioxide BUN Creatinine Glucose POC Glucose 162 H 133 H 138 H Calcium Magnesium Direct Bilirubin AST ALT Alkaline Phosphatase Total Creatine Kinase CK-MB (CK-2) CK-MB (CK-2) Rel Index Troponin T C-Reactive Protein Total Protein Albumin Triglycerides Ur Specific [place] Urine WBC (Auto) Miscellaneous Test 04/29/17 04/29/17 04/29/17 05:15 12:55 17:21 WBC RBC Hgb Hct MCV MCH Plt Count Lymph % (Auto) [place] % (Auto) Eos % (Auto) Baso % (Auto) Lymph # Baso # Seg Neutrophils % Lymphocytes % (Manual) Monocytes % (Manual) Nucleated RBC % Seg Neutrophils # Seg Neutrophils # Man Monocytes # (Manual) PT INR Activated Clotting Time POC ABG pH POC ABG pCO2 POC ABG pO2 Sodium Potassium Chloride Carbon Dioxide BUN Creatinine Glucose POC Glucose 135 H 127 H 138 H Calcium Magnesium Direct Bilirubin AST ALT Alkaline Phosphatase Total Creatine Kinase CK-MB (CK-2) CK-MB (CK-2) Rel Index Troponin T C-Reactive Protein Total Protein Albumin Triglycerides Ur Specific [place] Urine WBC (Auto) Miscellaneous Test 04/29/17 04/30/17 04/30/17 23:52 04:55 12:22 WBC RBC Hgb Hct MCV MCH Plt Count Lymph % (Auto) [place] % (Auto) Eos % (Auto) Baso % (Auto) Lymph # Baso # Seg Neutrophils % Lymphocytes % (Manual) Monocytes % (Manual) Nucleated RBC % Seg Neutrophils # Seg Neutrophils # Man Monocytes # (Manual) PT INR Activated Clotting Time POC ABG pH POC ABG pCO2 POC ABG pO2 Sodium Potassium Chloride Carbon Dioxide BUN Creatinine Glucose POC Glucose 142 H 146 H 132 H Calcium Magnesium Direct Bilirubin AST ALT Alkaline Phosphatase Total Creatine Kinase CK-MB (CK-2) CK-MB (CK-2) Rel Index Troponin T C-Reactive Protein Total Protein Albumin Triglycerides Ur Specific [place] Urine WBC (Auto) Miscellaneous Test 04/30/17 04/30/17 04/30/17 14:25 17:47 18:20 WBC RBC Hgb Hct MCV MCH Plt Count Lymph % (Auto) [place] % (Auto) Eos % (Auto) Baso % (Auto) Lymph # Baso # Seg Neutrophils % Lymphocytes % (Manual) Monocytes % (Manual) Nucleated RBC % Seg Neutrophils # Seg Neutrophils # Man Monocytes # (Manual) PT INR Activated Clotting Time POC ABG pH 7.551 H POC ABG pCO2 32.7 L POC ABG pO2 Sodium Potassium Chloride Carbon Dioxide BUN 21 H Creatinine 0.2 L Glucose 141 H POC Glucose 139 H Calcium Magnesium Direct Bilirubin AST ALT Alkaline Phosphatase Total Creatine Kinase CK-MB (CK-2) CK-MB (CK-2) Rel Index Troponin T C-Reactive Protein Total Protein Albumin Triglycerides Ur Specific [place] Urine WBC (Auto) Miscellaneous Test 05/01/17 05/01/17 05/01/17 01:26 05:30 05:30 WBC RBC 3.49 L Hgb 10.3 L Hct 31.9 L MCV MCH Plt Count Lymph % (Auto) [place] % (Auto) 8.1 H Eos % (Auto) Baso % (Auto) Lymph # Baso # Seg Neutrophils % 71.3 H Lymphocytes % (Manual) Monocytes % (Manual) Nucleated RBC % Seg Neutrophils # Seg Neutrophils # Man Monocytes # (Manual) PT INR Activated Clotting Time POC ABG pH POC ABG pCO2 POC ABG pO2 Sodium 136 L Potassium Chloride 97.6 L Carbon Dioxide BUN Creatinine 0.2 L Glucose 123 H POC Glucose 116 H Calcium Magnesium Direct Bilirubin AST 71 H ALT 125 H Alkaline Phosphatase 158 H Total Creatine Kinase CK-MB (CK-2) CK-MB (CK-2) Rel Index Troponin T C-Reactive Protein Total Protein Albumin 2.6 L Triglycerides Ur Specific [place] Urine WBC (Auto) Miscellaneous Test 05/01/17 05/01/17 05/02/17 11:59 17:23 00:08 WBC RBC Hgb Hct MCV MCH Plt Count Lymph % (Auto) [place] % (Auto) Eos % (Auto) Baso % (Auto) Lymph # Baso # Seg Neutrophils % Lymphocytes % (Manual) Monocytes % (Manual) Nucleated RBC % Seg Neutrophils # Seg Neutrophils # Man Monocytes # (Manual) PT INR Activated Clotting Time POC ABG pH POC ABG pCO2 POC ABG pO2 Sodium Potassium Chloride Carbon Dioxide BUN Creatinine Glucose POC Glucose 118 H 144 H 122 H Calcium Magnesium Direct Bilirubin AST ALT Alkaline Phosphatase Total Creatine Kinase CK-MB (CK-2) CK-MB (CK-2) Rel Index Troponin T C-Reactive Protein Total Protein Albumin Triglycerides Ur Specific [place] Urine WBC (Auto) Miscellaneous Test 05/02/17 05/02/17 05/02/17 05:50 11:21 17:48 WBC RBC Hgb Hct MCV MCH Plt Count Lymph % (Auto) [place] % (Auto) Eos % (Auto) Baso % (Auto) Lymph # Baso # Seg Neutrophils % Lymphocytes % (Manual) Monocytes % (Manual) Nucleated RBC % Seg Neutrophils # Seg Neutrophils # Man Monocytes # (Manual) PT INR Activated Clotting Time POC ABG pH POC ABG pCO2 POC ABG pO2 Sodium Potassium Chloride Carbon Dioxide BUN Creatinine Glucose POC Glucose 120 H 121 H 140 H Calcium Magnesium Direct Bilirubin AST ALT Alkaline Phosphatase Total Creatine Kinase CK-MB (CK-2) CK-MB (CK-2) Rel Index Troponin T C-Reactive Protein Total Protein Albumin Triglycerides Ur Specific [place] Urine WBC (Auto) Miscellaneous Test 05/02/17 05/03/17 05/03/17 23:12 05:35 11:52 WBC RBC Hgb Hct MCV MCH Plt Count Lymph % (Auto) [place] % (Auto) Eos % (Auto) Baso % (Auto) Lymph # Baso # Seg Neutrophils % Lymphocytes % (Manual) Monocytes % (Manual) Nucleated RBC % Seg Neutrophils # Seg Neutrophils # Man Monocytes # (Manual) PT INR Activated Clotting Time POC ABG pH POC ABG pCO2 POC ABG pO2 Sodium Potassium Chloride Carbon Dioxide BUN Creatinine Glucose POC Glucose 128 H 113 H 126 H Calcium Magnesium Direct Bilirubin AST ALT Alkaline Phosphatase Total Creatine Kinase CK-MB (CK-2) CK-MB (CK-2) Rel Index Troponin T C-Reactive Protein Total Protein Albumin Triglycerides Ur Specific [place] Urine WBC (Auto) Miscellaneous Test 05/03/17 05/03/17 05/04/17 17:29 23:26 04:55 WBC RBC Hgb Hct MCV MCH Plt Count Lymph % (Auto) [place] % (Auto) Eos % (Auto) Baso % (Auto) Lymph # Baso # Seg Neutrophils % Lymphocytes % (Manual) Monocytes % (Manual) Nucleated RBC % Seg Neutrophils # Seg Neutrophils # Man Monocytes # (Manual) PT INR Activated Clotting Time POC ABG pH POC ABG pCO2 POC ABG pO2 Sodium Potassium Chloride Carbon Dioxide BUN Creatinine Glucose POC Glucose 141 H 129 H 126 H Calcium Magnesium Direct Bilirubin AST ALT Alkaline Phosphatase Total Creatine Kinase CK-MB (CK-2) CK-MB (CK-2) Rel Index Troponin T C-Reactive Protein Total Protein Albumin Triglycerides Ur Specific [place] Urine WBC (Auto) Miscellaneous Test 05/04/17 05/04/17 05/05/17 12:09 17:46 00:06 WBC RBC Hgb Hct MCV MCH Plt Count Lymph % (Auto) [place] % (Auto) Eos % (Auto) Baso % (Auto) Lymph # Baso # Seg Neutrophils % Lymphocytes % (Manual) Monocytes % (Manual) Nucleated RBC % Seg Neutrophils # Seg Neutrophils # Man Monocytes # (Manual) PT INR Activated Clotting Time POC ABG pH POC ABG pCO2 POC ABG pO2 Sodium Potassium Chloride Carbon Dioxide BUN Creatinine Glucose POC Glucose 125 H 125 H 110 H Calcium Magnesium Direct Bilirubin AST ALT Alkaline Phosphatase Total Creatine Kinase CK-MB (CK-2) CK-MB (CK-2) Rel Index Troponin T C-Reactive Protein Total Protein Albumin Triglycerides Ur Specific [place] Urine WBC (Auto) Miscellaneous Test 05/05/17 05/05/17 05/05/17 05:48 11:41 16:19 WBC RBC Hgb Hct MCV MCH Plt Count Lymph % (Auto) [place] % (Auto) Eos % (Auto) Baso % (Auto) Lymph # Baso # Seg Neutrophils % Lymphocytes % (Manual) Monocytes % (Manual) Nucleated RBC % Seg Neutrophils # Seg Neutrophils # Man Monocytes # (Manual) PT INR Activated Clotting Time POC ABG pH POC ABG pCO2 POC ABG pO2 Sodium Potassium Chloride Carbon Dioxide BUN Creatinine Glucose POC Glucose 124 H 122 H 120 H Calcium Magnesium Direct Bilirubin AST ALT Alkaline Phosphatase Total Creatine Kinase CK-MB (CK-2) CK-MB (CK-2) Rel Index Troponin T C-Reactive Protein Total Protein Albumin Triglycerides Ur Specific [place] Urine WBC (Auto) Miscellaneous Test 05/06/17 05/06/17 05/06/17 00:16 05:47 11:42 WBC RBC Hgb Hct MCV MCH Plt Count Lymph % (Auto) [place] % (Auto) Eos % (Auto) Baso % (Auto) Lymph # Baso # Seg Neutrophils % Lymphocytes % (Manual) Monocytes % (Manual) Nucleated RBC % Seg Neutrophils # Seg Neutrophils # Man Monocytes # (Manual) PT INR Activated Clotting Time POC ABG pH POC ABG pCO2 POC ABG pO2 Sodium Potassium Chloride Carbon Dioxide BUN Creatinine Glucose POC Glucose 110 H 142 H 120 H Calcium Magnesium Direct Bilirubin AST ALT Alkaline Phosphatase Total Creatine Kinase CK-MB (CK-2) CK-MB (CK-2) Rel Index Troponin T C-Reactive Protein Total Protein Albumin Triglycerides Ur Specific [place] Urine WBC (Auto) Miscellaneous Test 05/06/17 05/07/17 05/07/17 17:46 00:07 05:28 WBC RBC Hgb Hct MCV MCH Plt Count Lymph % (Auto) [place] % (Auto) Eos % (Auto) Baso % (Auto) Lymph # Baso # Seg Neutrophils % Lymphocytes % (Manual) Monocytes % (Manual) Nucleated RBC % Seg Neutrophils # Seg Neutrophils # Man Monocytes # (Manual) PT INR Activated Clotting Time POC ABG pH POC ABG pCO2 POC ABG pO2 Sodium Potassium Chloride Carbon Dioxide BUN Creatinine Glucose POC Glucose 127 H 145 H 124 H Calcium Magnesium Direct Bilirubin AST ALT Alkaline Phosphatase Total Creatine Kinase CK-MB (CK-2) CK-MB (CK-2) Rel Index Troponin T C-Reactive Protein Total Protein Albumin Triglycerides Ur Specific [place] Urine WBC (Auto) Miscellaneous Test 05/07/17 05/07/17 05/08/17 11:17 17:14 00:03 WBC RBC Hgb Hct MCV MCH Plt Count Lymph % (Auto) [place] % (Auto) Eos % (Auto) Baso % (Auto) Lymph # Baso # Seg Neutrophils % Lymphocytes % (Manual) Monocytes % (Manual) Nucleated RBC % Seg Neutrophils # Seg Neutrophils # Man Monocytes # (Manual) PT INR Activated Clotting Time POC ABG pH POC ABG pCO2 POC ABG pO2 Sodium Potassium Chloride Carbon Dioxide BUN Creatinine Glucose POC Glucose 144 H 125 H 122 H Calcium Magnesium Direct Bilirubin AST ALT Alkaline Phosphatase Total Creatine Kinase CK-MB (CK-2) CK-MB (CK-2) Rel Index Troponin T C-Reactive Protein Total Protein Albumin Triglycerides Ur Specific [place] Urine WBC (Auto) Miscellaneous Test 05/08/17 05/08/17 05/08/17 05:43 12:07 18:02 WBC RBC Hgb Hct MCV MCH Plt Count Lymph % (Auto) [place] % (Auto) Eos % (Auto) Baso % (Auto) Lymph # Baso # Seg Neutrophils % Lymphocytes % (Manual) Monocytes % (Manual) Nucleated RBC % Seg Neutrophils # Seg Neutrophils # Man Monocytes # (Manual) PT INR Activated Clotting Time POC ABG pH POC ABG pCO2 POC ABG pO2 Sodium Potassium Chloride Carbon Dioxide BUN Creatinine Glucose POC Glucose 117 H 114 H 129 H Calcium Magnesium Direct Bilirubin AST ALT Alkaline Phosphatase Total Creatine Kinase CK-MB (CK-2) CK-MB (CK-2) Rel Index Troponin T C-Reactive Protein Total Protein Albumin Triglycerides Ur Specific [place] Urine WBC (Auto) Miscellaneous Test 05/08/17 05/09/17 05/09/17 23:53 04:19 05:14 WBC RBC Hgb Hct MCV MCH Plt Count Lymph % (Auto) [place] % (Auto) Eos % (Auto) Baso % (Auto) Lymph # Baso # Seg Neutrophils % Lymphocytes % (Manual) Monocytes % (Manual) Nucleated RBC % Seg Neutrophils # Seg Neutrophils # Man Monocytes # (Manual) PT INR Activated Clotting Time POC ABG pH 7.524 H POC ABG pCO2 34.7 L POC ABG pO2 107 H Sodium Potassium Chloride Carbon Dioxide BUN Creatinine Glucose POC Glucose 125 H 118 H Calcium Magnesium Direct Bilirubin AST ALT Alkaline Phosphatase Total Creatine Kinase CK-MB (CK-2) CK-MB (CK-2) Rel Index Troponin T C-Reactive Protein Total Protein Albumin Triglycerides Ur Specific [place] Urine WBC (Auto) Miscellaneous Test 05/10/17 05/11/17 05/11/17 23:54 05:48 23:50 WBC RBC Hgb Hct MCV MCH Plt Count Lymph % (Auto) [place] % (Auto) Eos % (Auto) Baso % (Auto) Lymph # Baso # Seg Neutrophils % Lymphocytes % (Manual) Monocytes % (Manual) Nucleated RBC % Seg Neutrophils # Seg Neutrophils # Man Monocytes # (Manual) PT INR Activated Clotting Time POC ABG pH POC ABG pCO2 POC ABG pO2 Sodium Potassium Chloride Carbon Dioxide BUN Creatinine Glucose POC Glucose 126 H 137 H 130 H Calcium Magnesium Direct Bilirubin AST ALT Alkaline Phosphatase Total Creatine Kinase CK-MB (CK-2) CK-MB (CK-2) Rel Index Troponin T C-Reactive Protein Total Protein Albumin Triglycerides Ur Specific [place] Urine WBC (Auto) Miscellaneous Test 05/12/17 05/12/17 05/12/17 05:48 11:33 18:00 WBC RBC Hgb Hct MCV MCH Plt Count Lymph % (Auto) [place] % (Auto) Eos % (Auto) Baso % (Auto) Lymph # Baso # Seg Neutrophils % Lymphocytes % (Manual) Monocytes % (Manual) Nucleated RBC % Seg Neutrophils # Seg Neutrophils # Man Monocytes # (Manual) PT INR Activated Clotting Time POC ABG pH POC ABG pCO2 POC ABG pO2 Sodium Potassium Chloride Carbon Dioxide BUN Creatinine Glucose POC Glucose 126 H 116 H 131 H Calcium Magnesium Direct Bilirubin AST ALT Alkaline Phosphatase Total Creatine Kinase CK-MB (CK-2) CK-MB (CK-2) Rel Index Troponin T C-Reactive Protein Total Protein Albumin Triglycerides Ur Specific [place] Urine WBC (Auto) Miscellaneous Test 05/14/17 05/15/17 05/15/17 11:45 11:27 17:42 WBC RBC Hgb Hct MCV MCH Plt Count Lymph % (Auto) [place] % (Auto) Eos % (Auto) Baso % (Auto) Lymph # Baso # Seg Neutrophils % Lymphocytes % (Manual) Monocytes % (Manual) Nucleated RBC % Seg Neutrophils # Seg Neutrophils # Man Monocytes # (Manual) PT INR Activated Clotting Time POC ABG pH POC ABG pCO2 POC ABG pO2 Sodium Potassium Chloride Carbon Dioxide BUN Creatinine Glucose POC Glucose 123 H 129 H 125 H Calcium Magnesium Direct Bilirubin AST ALT Alkaline Phosphatase Total Creatine Kinase CK-MB (CK-2) CK-MB (CK-2) Rel Index Troponin T C-Reactive Protein Total Protein Albumin Triglycerides Ur Specific [place] Urine WBC (Auto) Miscellaneous Test 05/16/17 00:29 WBC RBC Hgb Hct MCV MCH Plt Count Lymph % (Auto) [place] % (Auto) Eos % (Auto) Baso % (Auto) Lymph # Baso # Seg Neutrophils % Lymphocytes % (Manual) Monocytes % (Manual) Nucleated RBC % Seg Neutrophils # Seg Neutrophils # Man Monocytes # (Manual) PT INR Activated Clotting Time POC ABG pH POC ABG pCO2 POC ABG pO2 Sodium Potassium Chloride Carbon Dioxide BUN Creatinine Glucose POC Glucose 141 H Calcium Magnesium Direct Bilirubin AST ALT Alkaline Phosphatase Total Creatine Kinase CK-MB (CK-2) CK-MB (CK-2) Rel Index Troponin T C-Reactive Protein Total Protein Albumin Triglycerides Ur Specific [place] Urine WBC (Auto) Miscellaneous Test Chest x-ray: report reviewed, image reviewed (clear)
[2017-05-17 04:23] LABS: Basophils % (Auto) 0.3 % (0.0-1.8); Eosinophils # (Auto) 0.3 K/mm3 (0.0-0.4); Eosinophils % (Auto) 2.7 % (0.0-4.3); Hematocrit 34.8 % (35.5-45.6); Hemoglobin 11.7 gm/dl (11.8-15.2); Lymphocytes # (Auto) 1.5 K/mm3 (1.2-5.4); Lymphocytes % (Auto) 15.6 % (13.4-35.0); Mean Corpuscular HGB Conc 34 % (32-34); Mean Corpuscular Hemoglobin 31 pg (28-32); Mean Corpuscular Volume 90 fl (84-94); Monocytes # (Auto) 0.7 K/mm3 (0.0-0.8); Monocytes % (Auto) 7.7 % (0.0-7.3); Platelet Count 289 K/mm3 (140-440); Red Blood Count 3.85 M/mm3 (3.65-5.03); Red Cell Distribution Width 15.5 % (13.2-15.2)
[2017-05-17 04:28] LABS: BUN/Creatinine Ratio 85; Blood Urea Nitrogen 17 mg/dL (9-20); Calcium 9.1 mg/dL (8.4-10.2); Hemolysis Index 1
[2017-05-17] MEDS: PLAVIX PO SCH (09:57)
[2017-05-17] MEDS: CORDARONE PO SCH ×2 (09:58→22:08)
[2017-05-17] MEDS: ASPIRIN PO SCH (09:58)
[2017-05-17] MEDS: ELIQUIS PO SCH ×2 (09:58→22:08)
[2017-05-17] MEDS: PROTONIX FEEDTUBE SCH (09:58)
[2017-05-17] MEDS: ZESTRIL PO SCH (10:01)
[2017-05-17] MEDS: LOPRESSOR PO SCH ×2 (10:02→21:56)
--- NOTE | 2017-05-17 10:18 | Progress Note ---
Assessment and Plan Assessment and plan: 46 YO Male with No PMH was admitted through emergency room with history of V. fib cardiac arrest status post CPR per ACLS protocol, acute respiratory failure vent dependent , had tracheostomy and PEG placement, awaiting LTAC evaluation and placement --s/p cardiac arrest /anoxic encephalopathy/vegetative state -- acute hypoxic hypercapnic respiratory failure ; status post trach, vent dependent, --Acute anterior STEMI; status post PCI, --MRSA pneumonia/aspiration pneumonia, s/p full treatment, contact isolation --Hypertension; BP in the lower range. 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 and neurology Family has unrealistic expectations , requests to continue full CODE STATUS History Interval history: Patient Seen and examined medical records reviewed Clinically no change vitals signs reviewed Hospitalist Physical - Constitutional Vitals: Temp Pulse Resp BP Pulse Ox 97.9 F 71 16 91/58 99 05/17/17 03:59 05/17/17 10:01 05/17/17 08:25 05/17/17 10:01 05/17/17 08:25 General appearance: Present: no acute distress, well-nourished, other ( tracheostomy on vent) - EENT Eyes: Present: PERRL, EOM intact - Neck Neck: Present: supple, normal ROM - Respiratory Respiratory effort: normal Respiratory: bilateral: rhonchi, negative: rales, wheezing - Cardiovascular Rhythm: regular Heart Sounds: Present: S1 & S2 - Extremities Extremities: no ischemia Extremity abnormal: edema - Abdominal General gastrointestinal: soft, non-tender, non-distended, normal bowel sounds - Integumentary Integumentary: Present: clear, warm - Psychiatric Psychiatric: other (unresponsive) - Neurologic Neurologic: other (unresponsive) Results - Labs CBC & Chem 7: 05/17/17 03:45 05/17/17 03:45 Labs: Laboratory Last Values WBC 9.4 K/mm3 (4.5-11.0) 05/17/17 03:45 RBC 3.85 M/mm3 (3.65-5.03) 05/17/17 03:45 Hgb 11.7 gm/dl (11.8-15.2) L 05/17/17 03:45 Hct 34.8 % (35.5-45.6) L 05/17/17 03:45 MCV 90 fl (84-94) 05/17/17 03:45 MCH 31 pg (28-32) 05/17/17 03:45 MCHC 34 % (32-34) 05/17/17 03:45 RDW 15.5 % (13.2-15.2) H 05/17/17 03:45 Plt Count 289 K/mm3 (140-440) 05/17/17 03:45 Lymph % (Auto) 15.6 % (13.4-35.0) 05/17/17 03:45 [place] % (Auto) 7.7 % (0.0-7.3) H 05/17/17 03:45 Eos % (Auto) 2.7 % (0.0-4.3) 05/17/17 03:45 Baso % (Auto) 0.3 % (0.0-1.8) 05/17/17 03:45 Lymph # 1.5 K/mm3 (1.2-5.4) 05/17/17 03:45 [place] # 0.7 K/mm3 (0.0-0.8) 05/17/17 03:45 Eos # 0.3 K/mm3 (0.0-0.4) 05/17/17 03:45 Baso # 0.0 K/mm3 (0.0-0.1) 05/17/17 03:45 Add Manual Diff Complete 03/30/17 03:50 Total Counted 100 03/30/17 03:50 Seg Neutrophils % 73.7 % (40.0-70.0) H 05/17/17 03:45 Seg Neuts % (Manual) 65.0 % (40.0-70.0) 03/30/17 03:50 Band Neutrophils % 17.0 % 03/30/17 03:50 Lymphocytes % (Manual) 7.0 % (13.4-35.0) L 03/30/17 03:50 Reactive Lymphs % (Man) 0 % 03/30/17 03:50 Monocytes % (Manual) 7.0 % (0.0-7.3) 03/30/17 03:50 Eosinophils % (Manual) 0 % (0.0-4.3) 03/30/17 03:50 Basophils % (Manual) 0 % (0.0-1.8) 03/30/17 03:50 Metamyelocytes % 4.0 % 03/30/17 03:50 Myelocytes % 0 % 03/30/17 03:50 Promyelocytes % 0 % 03/30/17 03:50 Blast Cells % 0 % 03/30/17 03:50 Nucleated RBC % Not Reportable 03/30/17 03:50 Seg Neutrophils # 6.9 K/mm3 (1.8-7.7) 05/17/17 03:45 Seg Neutrophils # Man 12.7 K/mm3 (1.8-7.7) H 03/30/17 03:50 Band Neutrophils # 3.3 K/mm3 03/30/17 03:50 Lymphocytes # (Manual) 1.4 K/mm3 (1.2-5.4) 03/30/17 03:50 Abs React Lymphs (Man) 0.0 K/mm3 03/30/17 03:50 Monocytes # (Manual) 1.4 K/mm3 (0.0-0.8) H 03/30/17 03:50 Eosinophils # (Manual) 0.0 K/mm3 (0.0-0.4) 03/30/17 03:50 Basophils # (Manual) 0.0 K/mm3 (0.0-0.1) 03/30/17 03:50 Metamyelocytes # 0.8 K/mm3 03/30/17 03:50 Myelocytes # 0.0 K/mm3 03/30/17 03:50 Promyelocytes # 0.0 K/mm3 03/30/17 03:50 Blast Cells # 0.0 K/mm3 03/30/17 03:50 WBC Morphology Not Reportable 03/30/17 03:50 Hypersegmented Neuts Not Reportable 03/30/17 03:50 Hyposegmented Neuts Not Reportable 03/30/17 03:50 Hypogranular Neuts Not Reportable 03/30/17 03:50 Smudge Cells Not Reportable 03/30/17 03:50 Toxic Granulation Not Reportable 03/30/17 03:50 Toxic Vacuolation Not Reportable 03/30/17 03:50 Dohle Bodies Not Reportable 03/30/17 03:50 Pelger-Huet Anomaly Not Reportable 03/30/17 03:50 Sherry Rods Not Reportable 03/30/17 03:50 Platelet Estimate Appears normal 03/30/17 03:50 Clumped Platelets Not Reportable 03/30/17 03:50 Plt Clumps, EDTA Not Reportable 03/30/17 03:50 Large Platelets Not Reportable 03/30/17 03:50 Giant Platelets Not Reportable 03/30/17 03:50 Platelet Satelliting Not Reportable 03/30/17 03:50 Plt Morphology Comment Not Reportable 03/30/17 03:50 RBC Morphology Not Reportable 03/30/17 03:50 Dimorphic RBCs Not Reportable 03/30/17 03:50 Polychromasia Not Reportable 03/30/17 03:50 Hypochromasia Not Reportable 03/30/17 03:50 Poikilocytosis Not Reportable 03/30/17 03:50 Anisocytosis Few 03/30/17 03:50 Microcytosis Not Reportable 03/30/17 03:50 Macrocytosis Not Reportable 03/30/17 03:50 Spherocytes Not Reportable 03/30/17 03:50 Pappenheimer Bodies Not Reportable 03/30/17 03:50 Sickle Cells Not Reportable 03/30/17 03:50 Target Cells Not Reportable 03/30/17 03:50 Tear Drop Cells Not Reportable 03/30/17 03:50 Ovalocytes Not Reportable 03/30/17 03:50 Helmet Cells Not Reportable 03/30/17 03:50 [place] Bodies Not Reportable 03/30/17 03:50 [place] Rings Not Reportable 03/30/17 03:50 Nusrat Cells Not Reportable 03/30/17 03:50 Bite Cells Not Reportable 03/30/17 03:50 Crenated Cell Not Reportable 03/30/17 03:50 Elliptocytes Not Reportable 03/30/17 03:50 Acanthocytes (Spur) Not Reportable 03/30/17 03:50 Rouleaux Not Reportable 03/30/17 03:50 Hemoglobin C Crystals Not Reportable 03/30/17 03:50 Schistocytes Not Reportable 03/30/17 03:50 Malaria parasites Not Reportable 03/30/17 03:50 Jermaine Bodies Not Reportable 03/30/17 03:50 Hem Pathologist Commnt No 03/30/17 03:50 PT 14.9 Sec. (12.2-14.9) 04/10/17 04:16 INR 1.11 (0.87-1.13) 04/10/17 04:16 APTT 27.8 Sec. (24.2-36.6) 04/10/17 04:16 Activated Clotting Time 92 (74-137) 03/29/17 17:47 POC ABG pH 7.524 (7.35-7.45) H 05/09/17 04:19 POC ABG pCO2 34.7 (35-45) L 05/09/17 04:19 POC ABG pO2 107 (80-105) H 05/09/17 04:19 POC ABG HCO3 28.6 05/09/17 04:19 POC ABG Total CO2 30 05/09/17 04:19 POC ABG O2 Sat 99 05/09/17 04:19 POC ABG Base Excess 6 05/09/17 04:19 FiO2 25 % 05/09/17 04:19 Sodium 140 mmol/L (137-145) 05/17/17 03:45 Potassium 3.8 mmol/L (3.6-5.0) 05/17/17 03:45 Chloride 100.5 mmol/L (98-107) 05/17/17 03:45 Carbon Dioxide 25 mmol/L (22-30) 05/17/17 03:45 Anion Gap 18 mmol/L 05/17/17 03:45 BUN 17 mg/dL (9-20) 05/17/17 03:45 Creatinine 0.2 mg/dL (0.8-1.5) L 05/17/17 03:45 Estimated GFR > 60 ml/min 05/17/17 03:45 BUN/Creatinine Ratio 85 % 05/17/17 03:45 Glucose 131 mg/dL (75-100) H 05/17/17 03:45 POC Glucose 138 (70-105) H 05/16/17 06:50 Calcium 9.1 mg/dL (8.4-10.2) 05/17/17 03:45 Phosphorus 3.50 mg/dL (2.5-4.5) 04/13/17 04:45 Magnesium 1.80 mg/dL (1.7-2.3) 05/01/17 05:30 Total Bilirubin 0.60 mg/dL (0.1-1.2) 05/01/17 05:30 Direct Bilirubin < 0.2 mg/dL (0-0.2) 04/27/17 05:40 Indirect Bilirubin 0.3 mg/dL 04/25/17 04:51 AST 71 units/L (5-40) H 05/01/17 05:30 ALT 125 units/L (7-56) H 05/01/17 05:30 Alkaline Phosphatase 158 units/L (35-129) H 05/01/17 05:30 Total Creatine Kinase 1404 units/L (55-170) H 04/12/17 21:36 CK-MB (CK-2) 8.0 ng/mL (0.0-4.0) H 04/12/17 21:36 CK-MB (CK-2) Rel Index 0.5 (0-4) 04/12/17 21:36 Troponin T 0.767 ng/mL (0.00-0.029) H* 04/12/17 21:36 C-Reactive Protein 21.80 mg/dL (0.00-1.30) H 03/30/17 16:04 Total Protein 6.7 g/dL (6.3-8.2) 05/01/17 05:30 Albumin 2.6 g/dL (3.9-5) L 05/01/17 05:30 Albumin/Globulin Ratio 0.6 % 05/01/17 05:30 Triglycerides 151 mg/dL (2-149) H 04/01/17 04:29 Cholesterol 164 mg/dL (50-199) 03/29/17 19:52 LDL Cholesterol Direct 81 mg/dL (50-130) 03/29/17 19:52 HDL Cholesterol 44 mg/dL (40-59) 03/29/17 19:52 Cholesterol/HDL Ratio 3.72 % 03/29/17 19:52 Urine Color [place] (Yellow) 04/21/17 22:00 Urine Turbidity Clear (Clear) 04/21/17 22:00 Urine pH 5.0 (5.0-7.0) 04/21/17 22:00 Ur Specific [place] 1.029 (1.003-1.030) 04/21/17 22:00 Urine Protein 30 mg/dl mg/dL (Negative) 04/21/17 22:00 Urine Glucose (UA) Neg mg/dL (Negative) 04/21/17 22:00 Urine Ketones Neg mg/dL (Negative) 04/21/17 22:00 Urine Blood Mod (Negative) 04/21/17 22:00 Urine Nitrite Neg (Negative) 04/21/17 22:00 Urine Bilirubin Neg (Negative) 04/21/17 22:00 Urine Urobilinogen 4.0 mg/dL (<2.0) 04/21/17 22:00 Ur Leukocyte Esterase Neg (Negative) 04/21/17 22:00 Urine WBC (Auto) 10.0 /HPF (0.0-6.0) H 04/21/17 22:00 Urine RBC (Auto) 44.0 /HPF (0.0-6.0) 04/21/17 22:00 U Epithel Cells (Auto) < 1.0 /HPF (0-13.0) 04/21/17 22:00 Amorphous Crystals 1+ 03/30/17 09:45 Urine Mucus 3+ /HPF 04/21/17 22:00 Urine Opiates Screen Presumptive negative 03/30/17 09:45 Urine Methadone Screen Presumptive negative 03/30/17 09:45 Ur Barbiturates Screen Presumptive negative 03/30/17 09:45 Ur Phencyclidine Scrn Presumptive negative 03/30/17 09:45 Ur Amphetamines Screen Presumptive positive 03/30/17 09:45 U Benzodiazepines Scrn Presumptive positive 03/30/17 09:45 Urine Cocaine Screen Presumptive negative 03/30/17 09:45 U Marijuana (THC) Screen Presumptive negative 03/30/17 09:45 Drugs of Abuse Note Disclamer 03/30/17 09:45 Miscellaneous Test Flexitest 1 H 04/25/17 07:07 Blood Type O POSITIVE 03/29/17 11:35 Antibody Screen Negative 03/29/17 11:35
--- NOTE | 2017-05-17 16:13 | Progress Note ---
Assessment and Plan Imp: 1. s/p CP arrest 2. Anoxic enceph. 3. Acute respiratory failure, hypoxia 4. s/p Trach/PEG 5. Hypernatremia 6. STEMI/ICMP 7. UTI Rec: 1. 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 Plavix 3. TFs, DVT/GI PPx 4. Repeat CXR 5. Dismal prognosis and bad outcome is expected as explained by neurology and Dr. Ham (see previous notes); they have unrealistic expectations and thus he remains full support/full code 6. Complex patient Plan of care reviewed with sister at bedside, she understands/agrees; explained he is not likely to come off vent Subjective Date of service: 05/17/17 Principal diagnosis: coma,ARV,s/p arrest Interval history: No events. Eyes open but unresponsive. Apnea on PSV today. Cannot give history. Active Medications Albuterol (Proventil) 2.5 mg IH Q3HRT PRN PRN Reason: Shortness Of Breath Last Admin: 04/13/17 21:25 Dose: 2.5 mg Amiodarone HCl (Cordarone) 200 mg PO BID [facility] Last Admin: 05/17/17 09:58 Dose: 200 mg Apixaban (Eliquis) 5 mg PO Q12HR [facility] PRN Reason: Protocol Last Admin: 05/17/17 09:58 Dose: 5 mg Aspirin (Aspirin) 325 mg PO QDAY [facility] Last Admin: 05/17/17 09:58 Dose: 325 mg Atorvastatin Calcium (Lipitor) 20 mg PO QHS [facility] Last Admin: 05/16/17 22:18 Dose: 20 mg Clopidogrel Bisulfate (Plavix) 75 mg PO QDAY [facility] Last Admin: 05/17/17 09:57 Dose: 75 mg Dextrose (D50w (25gm) Syringe) 50 ml IV PRN PRN PRN Reason: Hypoglycemia Hydrophilic Ointment (Vaseline Lip Therapy) 1 applic TP Q2HR PRN PRN Reason: Dry Lips Last Admin: 05/01/17 00:35 Dose: 1 applic Lisinopril (Zestril) 2.5 mg PO QDAY [facility] Last Admin: 05/17/17 10:01 Dose: Not Given Metoprolol Tartrate (Lopressor) 2.5 mg IV Q4HR PRN PRN Reason: HR>130 Last Admin: 04/09/17 19:41 Dose: 2.5 mg Metoprolol Tartrate (Lopressor) 12.5 mg PO BID [facility] Last Admin: 05/17/17 10:02 Dose: Not Given Multi-Ingred Cream/Lotion/Oil/Oint (Artificial Tears Ophth Oint) 1 applic OU Q4HR PRN PRN Reason: Dry Eye(s) Last Admin: 03/31/17 22:51 Dose: 1 applic Pantoprazole (Protonix) 40 mg FEEDTUBE DAILY [facility] Last Admin: 05/17/17 09:58 Dose: 40 mg Scopolamine (Transderm-Scop) 1 each TD Q3D [facility] Last Admin: 05/14/17 14:14 Dose: 1 each Zolpidem Tartrate (Ambien) 10 mg PO QHS PRN PRN Reason: Insomnia Objective Vital Signs - 12hr 05/17/17 05/17/17 05/17/17 05:00 06:00 07:00 Temperature Pulse Rate 78 77 64 Respiratory 25 H 18 15 Rate Blood Pressure 101/66 91/59 92/48 O2 Sat by Pulse 97 99 98 Oximetry 05/17/17 05/17/17 05/17/17 08:00 08:25 09:00 Temperature 98.3 F Pulse Rate 78 79 72 Respiratory 15 16 18 Rate Blood Pressure 103/61 103/61 91/58 O2 Sat by Pulse 98 99 99 Oximetry 05/17/17 05/17/17 05/17/17 10:00 10:01 11:00 Temperature Pulse Rate 72 71 71 Respiratory 16 18 Rate Blood Pressure 92/46 91/58 86/50 O2 Sat by Pulse 96 99 Oximetry 05/17/17 05/17/17 05/17/17 11:55 12:00 12:19 Temperature 98.3 F 98.3 F Pulse Rate 71 74 Respiratory 17 Rate Blood Pressure 93/56 93/56 O2 Sat by Pulse 98 100 Oximetry 05/17/17 05/17/17 05/17/17 13:00 14:00 15:00 Temperature Pulse Rate 71 63 71 Respiratory 18 17 19 Rate Blood Pressure 94/54 93/52 93/57 O2 Sat by Pulse 98 Oximetry 05/17/17 15:57 Temperature 98.4 F Pulse Rate Respiratory Rate Blood Pressure O2 Sat by Pulse Oximetry Constitutional: no acute distress, comatose Eyes: non-icteric ENT: oropharynx moist Neck: supple, other (tracheotomy ) Effort: normal Ascultation: Bilateral: other (coarse BS bilaterally) Percussion: Bilateral: not dull Cardiovascular: regular rate and rhythm Gastrointestinal: normoactive bowel sounds, soft, non-tender, non-distended Integumentary: normal Extremities: no cyanosis, no edema, pink and warm Neurologic: other (nonresponsive with flaccid extremities) Psychiatric: other (eyes open spontaneously but does not follow any voice commands, otherwise nonresponsive except for pain) CBC and BMP: 05/17/17 03:45 05/17/17 03:45 ABG, PT/INR, D-dimer: ABG POC ABG pH 7.524 (7.35-7.45) H 05/09/17 04:19 POC ABG pCO2 34.7 (35-45) L 05/09/17 04:19 POC ABG pO2 107 (80-105) H 05/09/17 04:19 POC ABG HCO3 28.6 05/09/17 04:19 POC ABG Total CO2 30 05/09/17 04:19 POC ABG O2 Sat 99 05/09/17 04:19 PT/INR, D-dimer PT 14.9 Sec. (12.2-14.9) 04/10/17 04:16 INR 1.11 (0.87-1.13) 04/10/17 04:16 Abnormal lab findings: Abnormal Labs 03/29/17 03/29/17 03/29/17 11:35 11:35 11:40 WBC RBC Hgb Hct MCV 98 H MCH 33 H RDW Plt Count Lymph % (Auto) [place] % (Auto) Eos % (Auto) Baso % (Auto) Lymph # Baso # Seg Neutrophils % Lymphocytes % (Manual) Monocytes % (Manual) 9.0 H Nucleated RBC % 1.0 H Seg Neutrophils # Seg Neutrophils # Man Monocytes # (Manual) 0.9 H PT 15.8 H INR 1.20 H Activated Clotting Time POC ABG pH POC ABG pCO2 POC ABG pO2 Sodium Potassium 2.7 L* Chloride 95.3 L Carbon Dioxide 17 L BUN Creatinine Glucose 435 H POC Glucose Calcium Magnesium Direct Bilirubin AST ALT Alkaline Phosphatase Total Creatine Kinase CK-MB (CK-2) CK-MB (CK-2) Rel Index Troponin T C-Reactive Protein Total Protein 6.1 L Albumin 3.5 L Triglycerides Ur Specific [place] Urine WBC (Auto) Miscellaneous Test 03/29/17 03/29/17 03/29/17 12:34 13:10 13:25 WBC RBC Hgb Hct MCV MCH RDW Plt Count Lymph % (Auto) [place] % (Auto) Eos % (Auto) Baso % (Auto) Lymph # Baso # Seg Neutrophils % Lymphocytes % (Manual) Monocytes % (Manual) Nucleated RBC % Seg Neutrophils # Seg Neutrophils # Man Monocytes # (Manual) PT INR Activated Clotting Time 142 H 169 H 175 H POC ABG pH POC ABG pCO2 POC ABG pO2 Sodium Potassium Chloride Carbon Dioxide BUN Creatinine Glucose POC Glucose Calcium Magnesium Direct Bilirubin AST ALT Alkaline Phosphatase Total Creatine Kinase CK-MB (CK-2) CK-MB (CK-2) Rel Index Troponin T C-Reactive Protein Total Protein Albumin Triglycerides Ur Specific [place] Urine WBC (Auto) Miscellaneous Test 03/29/17 03/29/17 03/29/17 14:50 15:18 19:52 WBC RBC Hgb Hct MCV MCH RDW Plt Count Lymph % (Auto) [place] % (Auto) Eos % (Auto) Baso % (Auto) Lymph # Baso # Seg Neutrophils % Lymphocytes % (Manual) Monocytes % (Manual) Nucleated RBC % Seg Neutrophils # Seg Neutrophils # Man Monocytes # (Manual) PT INR Activated Clotting Time 175 H POC ABG pH 7.293 L POC ABG pCO2 POC ABG pO2 602 H Sodium Potassium Chloride Carbon Dioxide BUN Creatinine Glucose POC Glucose Calcium Magnesium Direct Bilirubin AST ALT Alkaline Phosphatase Total Creatine Kinase 7263 H CK-MB (CK-2) > 300.0 H CK-MB (CK-2) Rel Index 4.1 H Troponin T 8.080 H* D C-Reactive Protein Total Protein Albumin Triglycerides 195 H Ur Specific [place] Urine WBC (Auto) Miscellaneous Test 03/30/17 03/30/17 03/30/17 03:50 03:50 06:19 WBC 19.5 H RBC Hgb Hct MCV MCH RDW Plt Count Lymph % (Auto) [place] % (Auto) Eos % (Auto) Baso % (Auto) Lymph # Baso # Seg Neutrophils % Lymphocytes % (Manual) 7.0 L Monocytes % (Manual) Nucleated RBC % Seg Neutrophils # Seg Neutrophils # Man 12.7 H Monocytes # (Manual) 1.4 H PT INR Activated Clotting Time POC ABG pH POC ABG pCO2 28.2 L POC ABG pO2 108 H Sodium Potassium Chloride 108.9 H Carbon Dioxide 15 L BUN 25 H Creatinine Glucose 158 H POC Glucose Calcium 8.1 L Magnesium Direct Bilirubin AST ALT Alkaline Phosphatase Total Creatine Kinase 7963 H CK-MB (CK-2) > 300.0 H CK-MB (CK-2) Rel Index Troponin T 6.850 H* C-Reactive Protein Total Protein Albumin Triglycerides Ur Specific [place] Urine WBC (Auto) Miscellaneous Test 03/30/17 03/30/17 03/31/17 09:45 16:04 02:19 WBC RBC Hgb Hct MCV MCH RDW Plt Count Lymph % (Auto) [place] % (Auto) Eos % (Auto) Baso % (Auto) Lymph # Baso # Seg Neutrophils % Lymphocytes % (Manual) Monocytes % (Manual) Nucleated RBC % Seg Neutrophils # Seg Neutrophils # Man Monocytes # (Manual) PT INR Activated Clotting Time POC ABG pH POC ABG pCO2 POC ABG pO2 Sodium Potassium Chloride Carbon Dioxide BUN Creatinine Glucose POC Glucose 137 H Calcium Magnesium Direct Bilirubin AST ALT Alkaline Phosphatase Total Creatine Kinase CK-MB (CK-2) CK-MB (CK-2) Rel Index Troponin T C-Reactive Protein 21.80 H Total Protein Albumin Triglycerides Ur Specific [place] 1.031 H Urine WBC (Auto) Miscellaneous Test 03/31/17 03/31/17 03/31/17 03:57 06:54 09:22 WBC RBC Hgb Hct MCV MCH RDW Plt Count Lymph % (Auto) [place] % (Auto) Eos % (Auto) Baso % (Auto) Lymph # Baso # Seg Neutrophils % Lymphocytes % (Manual) Monocytes % (Manual) Nucleated RBC % Seg Neutrophils # Seg Neutrophils # Man Monocytes # (Manual) PT INR Activated Clotting Time POC ABG pH 7.475 H POC ABG pCO2 25.4 L POC ABG pO2 62 L Sodium Potassium Chloride Carbon Dioxide 19 L BUN 22 H Creatinine 0.6 L Glucose 148 H POC Glucose 143 H Calcium 8.3 L Magnesium Direct Bilirubin AST ALT Alkaline Phosphatase Total Creatine Kinase CK-MB (CK-2) CK-MB (CK-2) Rel Index Troponin T C-Reactive Protein Total Protein Albumin Triglycerides Ur Specific [place] Urine WBC (Auto) Miscellaneous Test 03/31/17 03/31/17 03/31/17 11:40 17:47 23:38 WBC RBC Hgb Hct MCV MCH RDW Plt Count Lymph % (Auto) [place] % (Auto) Eos % (Auto) Baso % (Auto) Lymph # Baso # Seg Neutrophils % Lymphocytes % (Manual) Monocytes % (Manual) Nucleated RBC % Seg Neutrophils # Seg Neutrophils # Man Monocytes # (Manual) PT INR Activated Clotting Time POC ABG pH POC ABG pCO2 POC ABG pO2 Sodium Potassium Chloride Carbon Dioxide BUN Creatinine Glucose POC Glucose 127 H 137 H 148 H Calcium Magnesium Direct Bilirubin AST ALT Alkaline Phosphatase Total Creatine Kinase CK-MB (CK-2) CK-MB (CK-2) Rel Index Troponin T C-Reactive Protein Total Protein Albumin Triglycerides Ur Specific [place] Urine WBC (Auto) Miscellaneous Test 04/01/17 04/01/17 04/01/17 04:29 05:01 11:54 WBC RBC Hgb Hct MCV MCH RDW Plt Count Lymph % (Auto) [place] % (Auto) Eos % (Auto) Baso % (Auto) Lymph # Baso # Seg Neutrophils % Lymphocytes % (Manual) Monocytes % (Manual) Nucleated RBC % Seg Neutrophils # Seg Neutrophils # Man Monocytes # (Manual) PT INR Activated Clotting Time POC ABG pH 7.513 H POC ABG pCO2 22.1 L POC ABG pO2 64 L Sodium Potassium Chloride Carbon Dioxide BUN Creatinine Glucose POC Glucose 121 H Calcium Magnesium Direct Bilirubin AST ALT Alkaline Phosphatase Total Creatine Kinase CK-MB (CK-2) CK-MB (CK-2) Rel Index Troponin T C-Reactive Protein Total Protein Albumin Triglycerides 151 H Ur Specific [place] Urine WBC (Auto) Miscellaneous Test 04/01/17 04/02/17 04/02/17 18:17 00:11 04:52 WBC RBC Hgb Hct MCV MCH RDW Plt Count Lymph % (Auto) [place] % (Auto) Eos % (Auto) Baso % (Auto) Lymph # Baso # Seg Neutrophils % Lymphocytes % (Manual) Monocytes % (Manual) Nucleated RBC % Seg Neutrophils # Seg Neutrophils # Man Monocytes # (Manual) PT INR Activated Clotting Time POC ABG pH 7.524 H POC ABG pCO2 25.5 L POC ABG pO2 66 L Sodium Potassium Chloride Carbon Dioxide BUN Creatinine Glucose POC Glucose 117 H 122 H Calcium Magnesium Direct Bilirubin AST ALT Alkaline Phosphatase Total Creatine Kinase CK-MB (CK-2) CK-MB (CK-2) Rel Index Troponin T C-Reactive Protein Total Protein Albumin Triglycerides Ur Specific [place] Urine WBC (Auto) Miscellaneous Test 04/02/17 04/02/17 04/02/17 05:18 10:41 12:19 WBC RBC Hgb Hct MCV MCH RDW Plt Count Lymph % (Auto) [place] % (Auto) Eos % (Auto) Baso % (Auto) Lymph # Baso # Seg Neutrophils % Lymphocytes % (Manual) Monocytes % (Manual) Nucleated RBC % Seg Neutrophils # Seg Neutrophils # Man Monocytes # (Manual) PT INR Activated Clotting Time POC ABG pH 7.534 H POC ABG pCO2 27.4 L POC ABG pO2 Sodium Potassium Chloride Carbon Dioxide BUN Creatinine Glucose POC Glucose 132 H 129 H Calcium Magnesium Direct Bilirubin AST ALT Alkaline Phosphatase Total Creatine Kinase CK-MB (CK-2) CK-MB (CK-2) Rel Index Troponin T C-Reactive Protein Total Protein Albumin Triglycerides Ur Specific [place] Urine WBC (Auto) Miscellaneous Test 04/02/17 04/03/17 04/03/17 18:05 00:08 05:09 WBC RBC Hgb Hct MCV MCH RDW Plt Count Lymph % (Auto) [place] % (Auto) Eos % (Auto) Baso % (Auto) Lymph # Baso # Seg Neutrophils % Lymphocytes % (Manual) Monocytes % (Manual) Nucleated RBC % Seg Neutrophils # Seg Neutrophils # Man Monocytes # (Manual) PT INR Activated Clotting Time POC ABG pH 7.455 H POC ABG pCO2 33.2 L POC ABG pO2 120 H Sodium Potassium Chloride Carbon Dioxide BUN Creatinine Glucose POC Glucose 136 H 128 H Calcium Magnesium Direct Bilirubin AST ALT Alkaline Phosphatase Total Creatine Kinase CK-MB (CK-2) CK-MB (CK-2) Rel Index Troponin T C-Reactive Protein Total Protein Albumin Triglycerides Ur Specific [place] Urine WBC (Auto) Miscellaneous Test 04/03/17 04/03/17 04/03/17 06:32 11:54 12:16 WBC 11.9 H RBC Hgb Hct MCV MCH RDW Plt Count 125 L Lymph % (Auto) 4.8 L [place] % (Auto) Eos % (Auto) Baso % (Auto) Lymph # 0.6 L Baso # Seg Neutrophils % 86.7 H Lymphocytes % (Manual) Monocytes % (Manual) Nucleated RBC % Seg Neutrophils # 10.3 H Seg Neutrophils # Man Monocytes # (Manual) PT INR Activated Clotting Time POC ABG pH POC ABG pCO2 POC ABG pO2 Sodium Potassium Chloride Carbon Dioxide BUN Creatinine Glucose POC Glucose 138 H 143 H Calcium Magnesium Direct Bilirubin AST ALT Alkaline Phosphatase Total Creatine Kinase CK-MB (CK-2) CK-MB (CK-2) Rel Index Troponin T C-Reactive Protein Total Protein Albumin Triglycerides Ur Specific [place] Urine WBC (Auto) Miscellaneous Test 04/03/17 04/03/17 04/04/17 17:33 23:59 04:34 WBC RBC Hgb Hct MCV MCH RDW Plt Count Lymph % (Auto) [place] % (Auto) Eos % (Auto) Baso % (Auto) Lymph # Baso # Seg Neutrophils % Lymphocytes % (Manual) Monocytes % (Manual) Nucleated RBC % Seg Neutrophils # Seg Neutrophils # Man Monocytes # (Manual) PT INR Activated Clotting Time POC ABG pH 7.457 H POC ABG pCO2 29.8 L POC ABG pO2 76 L Sodium Potassium Chloride Carbon Dioxide BUN Creatinine Glucose POC Glucose 130 H 155 H Calcium Magnesium Direct Bilirubin AST ALT Alkaline Phosphatase Total Creatine Kinase CK-MB (CK-2) CK-MB (CK-2) Rel Index Troponin T C-Reactive Protein Total Protein Albumin Triglycerides Ur Specific [place] Urine WBC (Auto) Miscellaneous Test 04/04/17 04/04/17 04/04/17 05:27 12:22 18:18 WBC RBC Hgb Hct MCV MCH RDW Plt Count Lymph % (Auto) [place] % (Auto) Eos % (Auto) Baso % (Auto) Lymph # Baso # Seg Neutrophils % Lymphocytes % (Manual) Monocytes % (Manual) Nucleated RBC % Seg Neutrophils # Seg Neutrophils # Man Monocytes # (Manual) PT INR Activated Clotting Time POC ABG pH POC ABG pCO2 POC ABG pO2 Sodium Potassium Chloride Carbon Dioxide BUN Creatinine Glucose POC Glucose 164 H 146 H 130 H Calcium Magnesium Direct Bilirubin AST ALT Alkaline Phosphatase Total Creatine Kinase CK-MB (CK-2) CK-MB (CK-2) Rel Index Troponin T C-Reactive Protein Total Protein Albumin Triglycerides Ur Specific [place] Urine WBC (Auto) Miscellaneous Test 04/05/17 04/05/17 04/05/17 04:43 05:28 11:36 WBC RBC Hgb Hct MCV MCH RDW Plt Count Lymph % (Auto) [place] % (Auto) Eos % (Auto) Baso % (Auto) Lymph # Baso # Seg Neutrophils % Lymphocytes % (Manual) Monocytes % (Manual) Nucleated RBC % Seg Neutrophils # Seg Neutrophils # Man Monocytes # (Manual) PT INR Activated Clotting Time POC ABG pH 7.479 H POC ABG pCO2 33.5 L POC ABG pO2 76 L Sodium Potassium Chloride Carbon Dioxide BUN Creatinine Glucose POC Glucose 145 H 136 H Calcium Magnesium Direct Bilirubin AST ALT Alkaline Phosphatase Total Creatine Kinase CK-MB (CK-2) CK-MB (CK-2) Rel Index Troponin T C-Reactive Protein Total Protein Albumin Triglycerides Ur Specific [place] Urine WBC (Auto) Miscellaneous Test 04/05/17 04/06/17 04/06/17 17:58 00:16 05:26 WBC RBC Hgb Hct MCV MCH RDW Plt Count Lymph % (Auto) [place] % (Auto) Eos % (Auto) Baso % (Auto) Lymph # Baso # Seg Neutrophils % Lymphocytes % (Manual) Monocytes % (Manual) Nucleated RBC % Seg Neutrophils # Seg Neutrophils # Man Monocytes # (Manual) PT INR Activated Clotting Time POC ABG pH POC ABG pCO2 POC ABG pO2 Sodium Potassium Chloride Carbon Dioxide BUN Creatinine Glucose POC Glucose 130 H 159 H 146 H Calcium Magnesium Direct Bilirubin AST ALT Alkaline Phosphatase Total Creatine Kinase CK-MB (CK-2) CK-MB (CK-2) Rel Index Troponin T C-Reactive Protein Total Protein Albumin Triglycerides Ur Specific [place] Urine WBC (Auto) Miscellaneous Test 04/06/17 04/06/17 04/07/17 13:11 16:54 11:45 WBC RBC Hgb Hct MCV MCH RDW Plt Count Lymph % (Auto) [place] % (Auto) Eos % (Auto) Baso % (Auto) Lymph # Baso # Seg Neutrophils % Lymphocytes % (Manual) Monocytes % (Manual) Nucleated RBC % Seg Neutrophils # Seg Neutrophils # Man Monocytes # (Manual) PT INR Activated Clotting Time POC ABG pH 7.517 H POC ABG pCO2 32.1 L POC ABG pO2 Sodium Potassium Chloride Carbon Dioxide BUN Creatinine Glucose POC Glucose 132 H 123 H Calcium Magnesium Direct Bilirubin AST ALT Alkaline Phosphatase Total Creatine Kinase CK-MB (CK-2) CK-MB (CK-2) Rel Index Troponin T C-Reactive Protein Total Protein Albumin Triglycerides Ur Specific [place] Urine WBC (Auto) Miscellaneous Test 04/07/17 04/07/1718 12:51 17:40 23:55 WBC RBC Hgb Hct MCV MCH RDW Plt Count Lymph % (Auto) [place] % (Auto) Eos % (Auto) Baso % (Auto) Lymph # Baso # Seg Neutrophils % Lymphocytes % (Manual) Monocytes % (Manual) Nucleated RBC % Seg Neutrophils # Seg Neutrophils # Man Monocytes # (Manual) PT INR Activated Clotting Time POC ABG pH POC ABG pCO2 POC ABG pO2 Sodium Potassium Chloride Carbon Dioxide BUN Creatinine Glucose POC Glucose 138 H 154 H 143 H Calcium Magnesium Direct Bilirubin AST ALT Alkaline Phosphatase Total Creatine Kinase CK-MB (CK-2) CK-MB (CK-2) Rel Index Troponin T C-Reactive Protein Total Protein Albumin Triglycerides Ur Specific [place] Urine WBC (Auto) Miscellaneous Test 04/08/17 04/08/17 04/08/17 05:27 11:14 17:44 WBC RBC Hgb Hct MCV MCH RDW Plt Count Lymph % (Auto) [place] % (Auto) Eos % (Auto) Baso % (Auto) Lymph # Baso # Seg Neutrophils % Lymphocytes % (Manual) Monocytes % (Manual) Nucleated RBC % Seg Neutrophils # Seg Neutrophils # Man Monocytes # (Manual) PT INR Activated Clotting Time POC ABG pH POC ABG pCO2 POC ABG pO2 Sodium Potassium Chloride Carbon Dioxide BUN Creatinine Glucose POC Glucose 142 H 153 H 129 H Calcium Magnesium Direct Bilirubin AST ALT Alkaline Phosphatase Total Creatine Kinase CK-MB (CK-2) CK-MB (CK-2) Rel Index Troponin T C-Reactive Protein Total Protein Albumin Triglycerides Ur Specific [place] Urine WBC (Auto) Miscellaneous Test 04/09/17 04/09/17 04/09/17 08:20 11:21 17:37 WBC RBC Hgb Hct MCV MCH RDW Plt Count Lymph % (Auto) [place] % (Auto) Eos % (Auto) Baso % (Auto) Lymph # Baso # Seg Neutrophils % Lymphocytes % (Manual) Monocytes % (Manual) Nucleated RBC % Seg Neutrophils # Seg Neutrophils # Man Monocytes # (Manual) PT INR Activated Clotting Time POC ABG pH POC ABG pCO2 POC ABG pO2 Sodium 147 H Potassium Chloride 108.8 H Carbon Dioxide BUN 39 H Creatinine 0.5 L Glucose 138 H POC Glucose 152 H 109 H Calcium Magnesium Direct Bilirubin AST ALT Alkaline Phosphatase Total Creatine Kinase CK-MB (CK-2) CK-MB (CK-2) Rel Index Troponin T C-Reactive Protein Total Protein Albumin Triglycerides Ur Specific [place] Urine WBC (Auto) Miscellaneous Test 04/10/17 04/10/17 04/10/17 00:13 04:16 04:16 WBC RBC Hgb 11.5 L Hct MCV 96 H MCH RDW Plt Count 103 L Lymph % (Auto) 11.1 L [place] % (Auto) Eos % (Auto) Baso % (Auto) Lymph # Baso # Seg Neutrophils % 81.5 H Lymphocytes % (Manual) Monocytes % (Manual) Nucleated RBC % Seg Neutrophils # 8.8 H Seg Neutrophils # Man Monocytes # (Manual) PT INR Activated Clotting Time POC ABG pH POC ABG pCO2 POC ABG pO2 Sodium 148 H Potassium Chloride 109.0 H Carbon Dioxide BUN 36 H Creatinine 0.5 L Glucose 131 H POC Glucose 127 H Calcium 8.1 L Magnesium 2.40 H Direct Bilirubin AST 206 H ALT 228 H Alkaline Phosphatase 178 H Total Creatine Kinase CK-MB (CK-2) CK-MB (CK-2) Rel Index Troponin T C-Reactive Protein Total Protein Albumin 2.8 L Triglycerides Ur Specific [place] Urine WBC (Auto) Miscellaneous Test 04/10/17 04/10/17 04/10/17 06:01 11:57 18:27 WBC RBC Hgb Hct MCV MCH RDW Plt Count Lymph % (Auto) [place] % (Auto) Eos % (Auto) Baso % (Auto) Lymph # Baso # Seg Neutrophils % Lymphocytes % (Manual) Monocytes % (Manual) Nucleated RBC % Seg Neutrophils # Seg Neutrophils # Man Monocytes # (Manual) PT INR Activated Clotting Time POC ABG pH POC ABG pCO2 POC ABG pO2 Sodium Potassium Chloride Carbon Dioxide BUN Creatinine Glucose POC Glucose 108 H 154 H 130 H Calcium Magnesium Direct Bilirubin AST ALT Alkaline Phosphatase Total Creatine Kinase CK-MB (CK-2) CK-MB (CK-2) Rel Index Troponin T C-Reactive Protein Total Protein Albumin Triglycerides Ur Specific [place] Urine WBC (Auto) Miscellaneous Test 04/11/17 04/11/17 04/12/17 12:25 17:10 00:22 WBC RBC Hgb Hct MCV MCH RDW Plt Count Lymph % (Auto) [place] % (Auto) Eos % (Auto) Baso % (Auto) Lymph # Baso # Seg Neutrophils % Lymphocytes % (Manual) Monocytes % (Manual) Nucleated RBC % Seg Neutrophils # Seg Neutrophils # Man Monocytes # (Manual) PT INR Activated Clotting Time POC ABG pH POC ABG pCO2 POC ABG pO2 Sodium Potassium Chloride Carbon Dioxide BUN Creatinine Glucose POC Glucose 107 H 129 H 128 H Calcium Magnesium Direct Bilirubin AST ALT Alkaline Phosphatase Total Creatine Kinase CK-MB (CK-2) CK-MB (CK-2) Rel Index Troponin T C-Reactive Protein Total Protein Albumin Triglycerides Ur Specific [place] Urine WBC (Auto) Miscellaneous Test 04/12/17 04/12/17 04/12/17 05:00 11:57 17:47 WBC RBC Hgb Hct MCV MCH RDW Plt Count Lymph % (Auto) [place] % (Auto) Eos % (Auto) Baso % (Auto) Lymph # Baso # Seg Neutrophils % Lymphocytes % (Manual) Monocytes % (Manual) Nucleated RBC % Seg Neutrophils # Seg Neutrophils # Man Monocytes # (Manual) PT INR Activated Clotting Time POC ABG pH POC ABG pCO2 POC ABG pO2 Sodium Potassium Chloride Carbon Dioxide BUN Creatinine Glucose POC Glucose 140 H 142 H Calcium Magnesium Direct Bilirubin AST 158 H ALT 184 H Alkaline Phosphatase 170 H Total Creatine Kinase CK-MB (CK-2) CK-MB (CK-2) Rel Index Troponin T C-Reactive Protein Total Protein Albumin 2.8 L Triglycerides Ur Specific [place] Urine WBC (Auto) Miscellaneous Test 04/12/17 04/12/17 04/13/17 21:36 21:36 01:37 WBC RBC Hgb Hct MCV MCH RDW Plt Count Lymph % (Auto) [place] % (Auto) Eos % (Auto) Baso % (Auto) Lymph # Baso # Seg Neutrophils % Lymphocytes % (Manual) Monocytes % (Manual) Nucleated RBC % Seg Neutrophils # Seg Neutrophils # Man Monocytes # (Manual) PT INR Activated Clotting Time POC ABG pH POC ABG pCO2 POC ABG pO2 Sodium Potassium Chloride Carbon Dioxide BUN Creatinine Glucose POC Glucose 126 H Calcium Magnesium Direct Bilirubin AST ALT Alkaline Phosphatase Total Creatine Kinase 1404 H CK-MB (CK-2) 8.0 H CK-MB (CK-2) Rel Index Troponin T 0.767 H* C-Reactive Protein Total Protein Albumin Triglycerides Ur Specific [place] Urine WBC (Auto) Miscellaneous Test 04/13/17 04/13/17 04/13/17 04:45 04:52 12:17 WBC RBC Hgb Hct MCV MCH RDW Plt Count Lymph % (Auto) [place] % (Auto) Eos % (Auto) Baso % (Auto) Lymph # Baso # Seg Neutrophils % Lymphocytes % (Manual) Monocytes % (Manual) Nucleated RBC % Seg Neutrophils # Seg Neutrophils # Man Monocytes # (Manual) PT INR Activated Clotting Time POC ABG pH POC ABG pCO2 POC ABG pO2 Sodium 148 H Potassium Chloride 112.8 H Carbon Dioxide BUN 33 H Creatinine 0.4 L Glucose 121 H POC Glucose 126 H 149 H Calcium Magnesium Direct Bilirubin AST 160 H ALT 189 H Alkaline Phosphatase 166 H Total Creatine Kinase CK-MB (CK-2) CK-MB (CK-2) Rel Index Troponin T C-Reactive Protein Total Protein Albumin 2.6 L Triglycerides Ur Specific [place] Urine WBC (Auto) Miscellaneous Test 04/13/17 04/14/17 04/14/17 17:45 00:20 00:45 WBC RBC Hgb Hct MCV MCH RDW Plt Count Lymph % (Auto) [place] % (Auto) Eos % (Auto) Baso % (Auto) Lymph # Baso # Seg Neutrophils % Lymphocytes % (Manual) Monocytes % (Manual) Nucleated RBC % Seg Neutrophils # Seg Neutrophils # Man Monocytes # (Manual) PT INR Activated Clotting Time POC ABG pH POC ABG pCO2 POC ABG pO2 Sodium Potassium Chloride Carbon Dioxide BUN Creatinine Glucose POC Glucose 130 H 144 H 144 H Calcium Magnesium Direct Bilirubin AST ALT Alkaline Phosphatase Total Creatine Kinase CK-MB (CK-2) CK-MB (CK-2) Rel Index Troponin T C-Reactive Protein Total Protein Albumin Triglycerides Ur Specific [place] Urine WBC (Auto) Miscellaneous Test 04/14/17 04/14/17 04/14/17 05:40 11:06 11:31 WBC RBC Hgb Hct MCV MCH RDW Plt Count Lymph % (Auto) [place] % (Auto) Eos % (Auto) Baso % (Auto) Lymph # Baso # Seg Neutrophils % Lymphocytes % (Manual) Monocytes % (Manual) Nucleated RBC % Seg Neutrophils # Seg Neutrophils # Man Monocytes # (Manual) PT INR Activated Clotting Time POC ABG pH POC ABG pCO2 POC ABG pO2 Sodium Potassium Chloride Carbon Dioxide BUN Creatinine Glucose POC Glucose 139 H 123 H Calcium Magnesium Direct Bilirubin AST ALT Alkaline Phosphatase Total Creatine Kinase CK-MB (CK-2) CK-MB (CK-2) Rel Index Troponin T C-Reactive Protein Total Protein Albumin Triglycerides Ur Specific [place] 1.033 H Urine WBC (Auto) > 182.0 H Miscellaneous Test 04/14/17 04/14/17 04/15/17 18:00 23:52 05:15 WBC 12.5 H RBC 3.38 L Hgb 10.6 L Hct 32.7 L MCV 97 H MCH RDW Plt Count 107 L Lymph % (Auto) 8.7 L [place] % (Auto) Eos % (Auto) Baso % (Auto) Lymph # 1.1 L Baso # Seg Neutrophils % 86.1 H Lymphocytes % (Manual) Monocytes % (Manual) Nucleated RBC % Seg Neutrophils # 10.7 H Seg Neutrophils # Man Monocytes # (Manual) PT INR Activated Clotting Time POC ABG pH POC ABG pCO2 POC ABG pO2 Sodium Potassium Chloride Carbon Dioxide BUN Creatinine Glucose POC Glucose 133 H 133 H Calcium Magnesium Direct Bilirubin AST ALT Alkaline Phosphatase Total Creatine Kinase CK-MB (CK-2) CK-MB (CK-2) Rel Index Troponin T C-Reactive Protein Total Protein Albumin Triglycerides Ur Specific [place] Urine WBC (Auto) Miscellaneous Test 04/15/17 04/15/17 04/15/17 05:15 05:25 11:50 WBC RBC Hgb Hct MCV MCH RDW Plt Count Lymph % (Auto) [place] % (Auto) Eos % (Auto) Baso % (Auto) Lymph # Baso # Seg Neutrophils % Lymphocytes % (Manual) Monocytes % (Manual) Nucleated RBC % Seg Neutrophils # Seg Neutrophils # Man Monocytes # (Manual) PT INR Activated Clotting Time POC ABG pH POC ABG pCO2 POC ABG pO2 Sodium 149 H Potassium 3.5 L Chloride 114.1 H Carbon Dioxide 21 L BUN 29 H Creatinine 0.4 L Glucose 128 H POC Glucose 133 H 107 H Calcium 8.3 L Magnesium Direct Bilirubin 0.4 H AST 149 H ALT 182 H Alkaline Phosphatase 143 H Total Creatine Kinase CK-MB (CK-2) CK-MB (CK-2) Rel Index Troponin T C-Reactive Protein Total Protein Albumin 2.5 L Triglycerides Ur Specific [place] Urine WBC (Auto) Miscellaneous Test 04/15/17 04/16/17 04/16/17 16:55 00:02 03:17 WBC RBC 3.39 L Hgb 10.5 L Hct 32.4 L MCV 96 H MCH RDW Plt Count 106 L Lymph % (Auto) 6.7 L [place] % (Auto) Eos % (Auto) Baso % (Auto) Lymph # 0.6 L Baso # Seg Neutrophils % 86.8 H Lymphocytes % (Manual) Monocytes % (Manual) Nucleated RBC % Seg Neutrophils # 8.2 H Seg Neutrophils # Man Monocytes # (Manual) PT INR Activated Clotting Time POC ABG pH POC ABG pCO2 POC ABG pO2 Sodium Potassium Chloride Carbon Dioxide BUN Creatinine Glucose POC Glucose 146 H 148 H Calcium Magnesium Direct Bilirubin AST ALT Alkaline Phosphatase Total Creatine Kinase CK-MB (CK-2) CK-MB (CK-2) Rel Index Troponin T C-Reactive Protein Total Protein Albumin Triglycerides Ur Specific [place] Urine WBC (Auto) Miscellaneous Test 04/16/17 04/16/17 04/16/17 03:17 05:19 11:13 WBC RBC Hgb Hct MCV MCH RDW Plt Count Lymph % (Auto) [place] % (Auto) Eos % (Auto) Baso % (Auto) Lymph # Baso # Seg Neutrophils % Lymphocytes % (Manual) Monocytes % (Manual) Nucleated RBC % Seg Neutrophils # Seg Neutrophils # Man Monocytes # (Manual) PT INR Activated Clotting Time POC ABG pH POC ABG pCO2 POC ABG pO2 Sodium 149 H Potassium Chloride 111.1 H Carbon Dioxide 20 L BUN 27 H Creatinine 0.3 L Glucose 156 H POC Glucose 171 H 169 H Calcium 8.3 L Magnesium Direct Bilirubin AST ALT Alkaline Phosphatase Total Creatine Kinase CK-MB (CK-2) CK-MB (CK-2) Rel Index Troponin T C-Reactive Protein Total Protein Albumin Triglycerides Ur Specific [place] Urine WBC (Auto) Miscellaneous Test 04/16/17 04/17/17 04/17/17 17:03 00:00 05:09 WBC RBC Hgb Hct MCV MCH RDW Plt Count Lymph % (Auto) [place] % (Auto) Eos % (Auto) Baso % (Auto) Lymph # Baso # Seg Neutrophils % Lymphocytes % (Manual) Monocytes % (Manual) Nucleated RBC % Seg Neutrophils # Seg Neutrophils # Man Monocytes # (Manual) PT INR Activated Clotting Time POC ABG pH POC ABG pCO2 POC ABG pO2 Sodium Potassium Chloride Carbon Dioxide BUN Creatinine Glucose POC Glucose 151 H 165 H 145 H Calcium Magnesium Direct Bilirubin AST ALT Alkaline Phosphatase Total Creatine Kinase CK-MB (CK-2) CK-MB (CK-2) Rel Index Troponin T C-Reactive Protein Total Protein Albumin Triglycerides Ur Specific [place] Urine WBC (Auto) Miscellaneous Test 04/17/17 04/17/17 04/18/17 11:38 17:47 00:01 WBC RBC Hgb Hct MCV MCH RDW Plt Count Lymph % (Auto) [place] % (Auto) Eos % (Auto) Baso % (Auto) Lymph # Baso # Seg Neutrophils % Lymphocytes % (Manual) Monocytes % (Manual) Nucleated RBC % Seg Neutrophils # Seg Neutrophils # Man Monocytes # (Manual) PT INR Activated Clotting Time POC ABG pH POC ABG pCO2 POC ABG pO2 Sodium Potassium Chloride Carbon Dioxide BUN Creatinine Glucose POC Glucose 170 H 161 H 131 H Calcium Magnesium Direct Bilirubin AST ALT Alkaline Phosphatase Total Creatine Kinase CK-MB (CK-2) CK-MB (CK-2) Rel Index Troponin T C-Reactive Protein Total Protein Albumin Triglycerides Ur Specific [place] Urine WBC (Auto) Miscellaneous Test 04/18/17 04/18/17 04/18/17 03:55 03:55 05:30 WBC RBC 3.05 L Hgb 9.8 L Hct 29.0 L MCV 95 H MCH RDW Plt Count 113 L Lymph % (Auto) [place] % (Auto) Eos % (Auto) 5.3 H Baso % (Auto) Lymph # Baso # Seg Neutrophils % 71.5 H Lymphocytes % (Manual) Monocytes % (Manual) Nucleated RBC % Seg Neutrophils # Seg Neutrophils # Man Monocytes # (Manual) PT INR Activated Clotting Time POC ABG pH 7.460 H POC ABG pCO2 30.8 L POC ABG pO2 129 H Sodium Potassium Chloride Carbon Dioxide 21 L BUN 25 H Creatinine 0.4 L Glucose 123 H POC Glucose Calcium 8.3 L Magnesium Direct Bilirubin AST ALT Alkaline Phosphatase Total Creatine Kinase CK-MB (CK-2) CK-MB (CK-2) Rel Index Troponin T C-Reactive Protein Total Protein Albumin Triglycerides Ur Specific [place] Urine WBC (Auto) Miscellaneous Test 04/18/17 04/18/17 04/19/17 17:10 23:40 04:36 WBC RBC 3.21 L Hgb 10.2 L Hct 30.4 L MCV 95 H MCH RDW Plt Count 131 L Lymph % (Auto) 12.1 L [place] % (Auto) Eos % (Auto) 4.7 H Baso % (Auto) 2.4 H Lymph # 0.9 L Baso # 0.2 H Seg Neutrophils % 75.0 H Lymphocytes % (Manual) Monocytes % (Manual) Nucleated RBC % Seg Neutrophils # Seg Neutrophils # Man Monocytes # (Manual) PT INR Activated Clotting Time POC ABG pH POC ABG pCO2 POC ABG pO2 Sodium Potassium Chloride Carbon Dioxide BUN Creatinine Glucose POC Glucose 135 H 157 H Calcium Magnesium Direct Bilirubin AST ALT Alkaline Phosphatase Total Creatine Kinase CK-MB (CK-2) CK-MB (CK-2) Rel Index Troponin T C-Reactive Protein Total Protein Albumin Triglycerides Ur Specific [place] Urine WBC (Auto) Miscellaneous Test 04/19/17 04/19/17 04/19/17 04:36 05:12 06:50 WBC RBC Hgb Hct MCV MCH RDW Plt Count Lymph % (Auto) [place] % (Auto) Eos % (Auto) Baso % (Auto) Lymph # Baso # Seg Neutrophils % Lymphocytes % (Manual) Monocytes % (Manual) Nucleated RBC % Seg Neutrophils # Seg Neutrophils # Man Monocytes # (Manual) PT INR Activated Clotting Time POC ABG pH 7.516 H POC ABG pCO2 28.0 L POC ABG pO2 Sodium Potassium Chloride Carbon Dioxide 21 L BUN 23 H Creatinine 0.2 L Glucose 137 H POC Glucose 131 H Calcium 7.9 L Magnesium Direct Bilirubin AST ALT Alkaline Phosphatase Total Creatine Kinase CK-MB (CK-2) CK-MB (CK-2) Rel Index Troponin T C-Reactive Protein Total Protein Albumin Triglycerides Ur Specific [place] Urine WBC (Auto) Miscellaneous Test 04/19/17 04/19/17 04/20/17 12:36 17:42 00:12 WBC RBC Hgb Hct MCV MCH RDW Plt Count Lymph % (Auto) [place] % (Auto) Eos % (Auto) Baso % (Auto) Lymph # Baso # Seg Neutrophils % Lymphocytes % (Manual) Monocytes % (Manual) Nucleated RBC % Seg Neutrophils # Seg Neutrophils # Man Monocytes # (Manual) PT INR Activated Clotting Time POC ABG pH POC ABG pCO2 POC ABG pO2 Sodium Potassium Chloride Carbon Dioxide BUN Creatinine Glucose POC Glucose 128 H 140 H 132 H Calcium Magnesium Direct Bilirubin AST ALT Alkaline Phosphatase Total Creatine Kinase CK-MB (CK-2) CK-MB (CK-2) Rel Index Troponin T C-Reactive Protein Total Protein Albumin Triglycerides Ur Specific [place] Urine WBC (Auto) Miscellaneous Test 04/20/17 04/20/17 04/20/17 03:35 03:35 05:10 WBC RBC 3.34 L Hgb 10.4 L Hct 31.6 L MCV 95 H MCH RDW Plt Count Lymph % (Auto) 12.9 L [place] % (Auto) Eos % (Auto) Baso % (Auto) Lymph # Baso # Seg Neutrophils % 77.3 H Lymphocytes % (Manual) Monocytes % (Manual) Nucleated RBC % Seg Neutrophils # Seg Neutrophils # Man Monocytes # (Manual) PT INR Activated Clotting Time POC ABG pH POC ABG pCO2 POC ABG pO2 Sodium Potassium Chloride Carbon Dioxide BUN Creatinine 0.3 L Glucose 155 H POC Glucose 135 H Calcium 7.8 L Magnesium Direct Bilirubin AST ALT Alkaline Phosphatase Total Creatine Kinase CK-MB (CK-2) CK-MB (CK-2) Rel Index Troponin T C-Reactive Protein Total Protein Albumin Triglycerides Ur Specific [place] Urine WBC (Auto) Miscellaneous Test 04/20/17 04/20/17 04/21/17 12:49 18:21 00:05 WBC RBC Hgb Hct MCV MCH RDW Plt Count Lymph % (Auto) [place] % (Auto) Eos % (Auto) Baso % (Auto) Lymph # Baso # Seg Neutrophils % Lymphocytes % (Manual) Monocytes % (Manual) Nucleated RBC % Seg Neutrophils # Seg Neutrophils # Man Monocytes # (Manual) PT INR Activated Clotting Time POC ABG pH POC ABG pCO2 POC ABG pO2 Sodium Potassium Chloride Carbon Dioxide BUN Creatinine Glucose POC Glucose 155 H 165 H 141 H Calcium Magnesium Direct Bilirubin AST ALT Alkaline Phosphatase Total Creatine Kinase CK-MB (CK-2) CK-MB (CK-2) Rel Index Troponin T C-Reactive Protein Total Protein Albumin Triglycerides Ur Specific [place] Urine WBC (Auto) Miscellaneous Test 04/21/17 04/21/17 04/21/17 06:00 12:11 17:04 WBC RBC Hgb Hct MCV MCH RDW Plt Count Lymph % (Auto) [place] % (Auto) Eos % (Auto) Baso % (Auto) Lymph # Baso # Seg Neutrophils % Lymphocytes % (Manual) Monocytes % (Manual) Nucleated RBC % Seg Neutrophils # Seg Neutrophils # Man Monocytes # (Manual) PT INR Activated Clotting Time POC ABG pH POC ABG pCO2 POC ABG pO2 Sodium Potassium Chloride Carbon Dioxide BUN Creatinine Glucose POC Glucose 152 H 165 H 156 H Calcium Magnesium Direct Bilirubin AST ALT Alkaline Phosphatase Total Creatine Kinase CK-MB (CK-2) CK-MB (CK-2) Rel Index Troponin T C-Reactive Protein Total Protein Albumin Triglycerides Ur Specific [place] Urine WBC (Auto) Miscellaneous Test 0104/21/17 04/22/17 22:00 23:59 05:49 WBC RBC Hgb Hct MCV MCH RDW Plt Count Lymph % (Auto) [place] % (Auto) Eos % (Auto) Baso % (Auto) Lymph # Baso # Seg Neutrophils % Lymphocytes % (Manual) Monocytes % (Manual) Nucleated RBC % Seg Neutrophils # Seg Neutrophils # Man Monocytes # (Manual) PT INR Activated Clotting Time POC ABG pH POC ABG pCO2 POC ABG pO2 Sodium Potassium Chloride Carbon Dioxide BUN Creatinine Glucose POC Glucose 166 H 173 H Calcium Magnesium Direct Bilirubin AST ALT Alkaline Phosphatase Total Creatine Kinase CK-MB (CK-2) CK-MB (CK-2) Rel Index Troponin T C-Reactive Protein Total Protein Albumin Triglycerides Ur Specific [place] Urine WBC (Auto) 10.0 H Miscellaneous Test 04/22/17 04/22/17 04/23/17 11:11 18:04 00:37 WBC RBC Hgb Hct MCV MCH RDW Plt Count Lymph % (Auto) [place] % (Auto) Eos % (Auto) Baso % (Auto) Lymph # Baso # Seg Neutrophils % Lymphocytes % (Manual) Monocytes % (Manual) Nucleated RBC % Seg Neutrophils # Seg Neutrophils # Man Monocytes # (Manual) PT INR Activated Clotting Time POC ABG pH POC ABG pCO2 POC ABG pO2 Sodium Potassium Chloride Carbon Dioxide BUN Creatinine Glucose POC Glucose 172 H 140 H 135 H Calcium Magnesium Direct Bilirubin AST ALT Alkaline Phosphatase Total Creatine Kinase CK-MB (CK-2) CK-MB (CK-2) Rel Index Troponin T C-Reactive Protein Total Protein Albumin Triglycerides Ur Specific [place] Urine WBC (Auto) Miscellaneous Test 04/23/17 04/23/17 04/23/17 05:33 06:20 11:10 WBC RBC 3.19 L Hgb 9.9 L Hct 30.0 L MCV MCH RDW Plt Count Lymph % (Auto) 8.0 L [place] % (Auto) Eos % (Auto) Baso % (Auto) Lymph # 0.8 L Baso # Seg Neutrophils % 84.5 H Lymphocytes % (Manual) Monocytes % (Manual) Nucleated RBC % Seg Neutrophils # 8.2 H Seg Neutrophils # Man Monocytes # (Manual) PT INR Activated Clotting Time POC ABG pH POC ABG pCO2 POC ABG pO2 Sodium Potassium Chloride Carbon Dioxide BUN Creatinine Glucose POC Glucose 134 H 134 H Calcium Magnesium Direct Bilirubin AST ALT Alkaline Phosphatase Total Creatine Kinase CK-MB (CK-2) CK-MB (CK-2) Rel Index Troponin T C-Reactive Protein Total Protein Albumin Triglycerides Ur Specific [place] Urine WBC (Auto) Miscellaneous Test 04/23/17 04/24/17 04/24/17 17:26 00:53 06:46 WBC RBC Hgb Hct MCV MCH RDW Plt Count Lymph % (Auto) [place] % (Auto) Eos % (Auto) Baso % (Auto) Lymph # Baso # Seg Neutrophils % Lymphocytes % (Manual) Monocytes % (Manual) Nucleated RBC % Seg Neutrophils # Seg Neutrophils # Man Monocytes # (Manual) PT INR Activated Clotting Time POC ABG pH POC ABG pCO2 POC ABG pO2 Sodium Potassium Chloride Carbon Dioxide BUN Creatinine Glucose POC Glucose 164 H 146 H 125 H Calcium Magnesium Direct Bilirubin AST ALT Alkaline Phosphatase Total Creatine Kinase CK-MB (CK-2) CK-MB (CK-2) Rel Index Troponin T C-Reactive Protein Total Protein Albumin Triglycerides Ur Specific [place] Urine WBC (Auto) Miscellaneous Test 04/24/17 04/24/17 04/24/17 11:55 17:50 23:36 WBC RBC Hgb Hct MCV MCH RDW Plt Count Lymph % (Auto) [place] % (Auto) Eos % (Auto) Baso % (Auto) Lymph # Baso # Seg Neutrophils % Lymphocytes % (Manual) Monocytes % (Manual) Nucleated RBC % Seg Neutrophils # Seg Neutrophils # Man Monocytes # (Manual) PT INR Activated Clotting Time POC ABG pH POC ABG pCO2 POC ABG pO2 Sodium Potassium Chloride Carbon Dioxide BUN Creatinine Glucose POC Glucose 156 H 146 H 131 H Calcium Magnesium Direct Bilirubin AST ALT Alkaline Phosphatase Total Creatine Kinase CK-MB (CK-2) CK-MB (CK-2) Rel Index Troponin T C-Reactive Protein Total Protein Albumin Triglycerides Ur Specific [place] Urine WBC (Auto) Miscellaneous Test 04/25/17 04/25/17 04/25/17 04:51 05:16 07:07 WBC RBC Hgb Hct MCV MCH RDW Plt Count Lymph % (Auto) [place] % (Auto) Eos % (Auto) Baso % (Auto) Lymph # Baso # Seg Neutrophils % Lymphocytes % (Manual) Monocytes % (Manual) Nucleated RBC % Seg Neutrophils # Seg Neutrophils # Man Monocytes # (Manual) PT INR Activated Clotting Time POC ABG pH POC ABG pCO2 POC ABG pO2 Sodium Potassium Chloride Carbon Dioxide BUN Creatinine Glucose POC Glucose 139 H Calcium Magnesium Direct Bilirubin AST 105 H ALT 204 H Alkaline Phosphatase 189 H Total Creatine Kinase CK-MB (CK-2) CK-MB (CK-2) Rel Index Troponin T C-Reactive Protein Total Protein Albumin 2.4 L Triglycerides Ur Specific [place] Urine WBC (Auto) Miscellaneous Test Flexitest 1 H 04/25/17 04/25/17 04/25/17 12:29 17:23 23:32 WBC RBC Hgb Hct MCV MCH RDW Plt Count Lymph % (Auto) [place] % (Auto) Eos % (Auto) Baso % (Auto) Lymph # Baso # Seg Neutrophils % Lymphocytes % (Manual) Monocytes % (Manual) Nucleated RBC % Seg Neutrophils # Seg Neutrophils # Man Monocytes # (Manual) PT INR Activated Clotting Time POC ABG pH POC ABG pCO2 POC ABG pO2 Sodium Potassium Chloride Carbon Dioxide BUN Creatinine Glucose POC Glucose 132 H 133 H 128 H Calcium Magnesium Direct Bilirubin AST ALT Alkaline Phosphatase Total Creatine Kinase CK-MB (CK-2) CK-MB (CK-2) Rel Index Troponin T C-Reactive Protein Total Protein Albumin Triglycerides Ur Specific [place] Urine WBC (Auto) Miscellaneous Test 04/26/17 04/26/17 04/26/17 05:24 11:28 17:09 WBC RBC Hgb Hct MCV MCH RDW Plt Count Lymph % (Auto) [place] % (Auto) Eos % (Auto) Baso % (Auto) Lymph # Baso # Seg Neutrophils % Lymphocytes % (Manual) Monocytes % (Manual) Nucleated RBC % Seg Neutrophils # Seg Neutrophils # Man Monocytes # (Manual) PT INR Activated Clotting Time POC ABG pH POC ABG pCO2 POC ABG pO2 Sodium Potassium Chloride Carbon Dioxide BUN Creatinine Glucose POC Glucose 132 H 146 H 141 H Calcium Magnesium Direct Bilirubin AST ALT Alkaline Phosphatase Total Creatine Kinase CK-MB (CK-2) CK-MB (CK-2) Rel Index Troponin T C-Reactive Protein Total Protein Albumin Triglycerides Ur Specific [place] Urine WBC (Auto) Miscellaneous Test 04/26/17 04/27/17 04/27/17 23:52 05:40 05:40 WBC RBC 3.22 L Hgb 10.0 L Hct 29.9 L MCV MCH RDW Plt Count Lymph % (Auto) [place] % (Auto) Eos % (Auto) Baso % (Auto) Lymph # Baso # Seg Neutrophils % 76.6 H Lymphocytes % (Manual) Monocytes % (Manual) Nucleated RBC % Seg Neutrophils # Seg Neutrophils # Man Monocytes # (Manual) PT INR Activated Clotting Time POC ABG pH POC ABG pCO2 POC ABG pO2 Sodium Potassium Chloride Carbon Dioxide BUN Creatinine Glucose POC Glucose 140 H Calcium Magnesium Direct Bilirubin AST 66 H ALT 137 H Alkaline Phosphatase 169 H Total Creatine Kinase CK-MB (CK-2) CK-MB (CK-2) Rel Index Troponin T C-Reactive Protein Total Protein 6.2 L Albumin 2.6 L Triglycerides Ur Specific [place] Urine WBC (Auto) Miscellaneous Test 04/27/17 04/27/17 04/27/17 05:40 06:10 11:13 WBC RBC Hgb Hct MCV MCH RDW Plt Count Lymph % (Auto) [place] % (Auto) Eos % (Auto) Baso % (Auto) Lymph # Baso # Seg Neutrophils % Lymphocytes % (Manual) Monocytes % (Manual) Nucleated RBC % Seg Neutrophils # Seg Neutrophils # Man Monocytes # (Manual) PT INR Activated Clotting Time POC ABG pH POC ABG pCO2 POC ABG pO2 Sodium Potassium Chloride Carbon Dioxide BUN Creatinine 0.2 L Glucose 139 H POC Glucose 130 H 151 H Calcium Magnesium Direct Bilirubin AST ALT Alkaline Phosphatase Total Creatine Kinase CK-MB (CK-2) CK-MB (CK-2) Rel Index Troponin T C-Reactive Protein Total Protein Albumin Triglycerides Ur Specific [place] Urine WBC (Auto) Miscellaneous Test 04/27/17 04/27/17 04/28/17 17:37 23:19 05:24 WBC RBC Hgb Hct MCV MCH RDW Plt Count Lymph % (Auto) [place] % (Auto) Eos % (Auto) Baso % (Auto) Lymph # Baso # Seg Neutrophils % Lymphocytes % (Manual) Monocytes % (Manual) Nucleated RBC % Seg Neutrophils # Seg Neutrophils # Man Monocytes # (Manual) PT INR Activated Clotting Time POC ABG pH POC ABG pCO2 POC ABG pO2 Sodium Potassium Chloride Carbon Dioxide BUN Creatinine Glucose POC Glucose 159 H 130 H 132 H Calcium Magnesium Direct Bilirubin AST ALT Alkaline Phosphatase Total Creatine Kinase CK-MB (CK-2) CK-MB (CK-2) Rel Index Troponin T C-Reactive Protein Total Protein Albumin Triglycerides Ur Specific [place] Urine WBC (Auto) Miscellaneous Test 04/28/17 04/28/17 04/28/17 11:15 17:38 23:23 WBC RBC Hgb Hct MCV MCH RDW Plt Count Lymph % (Auto) [place] % (Auto) Eos % (Auto) Baso % (Auto) Lymph # Baso # Seg Neutrophils % Lymphocytes % (Manual) Monocytes % (Manual) Nucleated RBC % Seg Neutrophils # Seg Neutrophils # Man Monocytes # (Manual) PT INR Activated Clotting Time POC ABG pH POC ABG pCO2 POC ABG pO2 Sodium Potassium Chloride Carbon Dioxide BUN Creatinine Glucose POC Glucose 162 H 133 H 138 H Calcium Magnesium Direct Bilirubin AST ALT Alkaline Phosphatase Total Creatine Kinase CK-MB (CK-2) CK-MB (CK-2) Rel Index Troponin T C-Reactive Protein Total Protein Albumin Triglycerides Ur Specific [place] Urine WBC (Auto) Miscellaneous Test 04/29/17 04/29/17 04/29/17 05:15 12:55 17:21 WBC RBC Hgb Hct MCV MCH RDW Plt Count Lymph % (Auto) [place] % (Auto) Eos % (Auto) Baso % (Auto) Lymph # Baso # Seg Neutrophils % Lymphocytes % (Manual) Monocytes % (Manual) Nucleated RBC % Seg Neutrophils # Seg Neutrophils # Man Monocytes # (Manual) PT INR Activated Clotting Time POC ABG pH POC ABG pCO2 POC ABG pO2 Sodium Potassium Chloride Carbon Dioxide BUN Creatinine Glucose POC Glucose 135 H 127 H 138 H Calcium Magnesium Direct Bilirubin AST ALT Alkaline Phosphatase Total Creatine Kinase CK-MB (CK-2) CK-MB (CK-2) Rel Index Troponin T C-Reactive Protein Total Protein Albumin Triglycerides Ur Specific [place] Urine WBC (Auto) Miscellaneous Test 04/29/17 04/30/17 04/30/17 23:52 04:55 12:22 WBC RBC Hgb Hct MCV MCH RDW Plt Count Lymph % (Auto) [place] % (Auto) Eos % (Auto) Baso % (Auto) Lymph # Baso # Seg Neutrophils % Lymphocytes % (Manual) Monocytes % (Manual) Nucleated RBC % Seg Neutrophils # Seg Neutrophils # Man Monocytes # (Manual) PT INR Activated Clotting Time POC ABG pH POC ABG pCO2 POC ABG pO2 Sodium Potassium Chloride Carbon Dioxide BUN Creatinine Glucose POC Glucose 142 H 146 H 132 H Calcium Magnesium Direct Bilirubin AST ALT Alkaline Phosphatase Total Creatine Kinase CK-MB (CK-2) CK-MB (CK-2) Rel Index Troponin T C-Reactive Protein Total Protein Albumin Triglycerides Ur Specific [place] Urine WBC (Auto) Miscellaneous Test 04/30/17 04/30/17 04/30/17 14:25 17:47 18:20 WBC RBC Hgb Hct MCV MCH RDW Plt Count Lymph % (Auto) [place] % (Auto) Eos % (Auto) Baso % (Auto) Lymph # Baso # Seg Neutrophils % Lymphocytes % (Manual) Monocytes % (Manual) Nucleated RBC % Seg Neutrophils # Seg Neutrophils # Man Monocytes # (Manual) PT INR Activated Clotting Time POC ABG pH 7.551 H POC ABG pCO2 32.7 L POC ABG pO2 Sodium Potassium Chloride Carbon Dioxide BUN 21 H Creatinine 0.2 L Glucose 141 H POC Glucose 139 H Calcium Magnesium Direct Bilirubin AST ALT Alkaline Phosphatase Total Creatine Kinase CK-MB (CK-2) CK-MB (CK-2) Rel Index Troponin T C-Reactive Protein Total Protein Albumin Triglycerides Ur Specific [place] Urine WBC (Auto) Miscellaneous Test 05/01/17 05/01/17 05/01/17 01:26 05:30 05:30 WBC RBC 3.49 L Hgb 10.3 L Hct 31.9 L MCV MCH RDW Plt Count Lymph % (Auto) [place] % (Auto) 8.1 H Eos % (Auto) Baso % (Auto) Lymph # Baso # Seg Neutrophils % 71.3 H Lymphocytes % (Manual) Monocytes % (Manual) Nucleated RBC % Seg Neutrophils # Seg Neutrophils # Man Monocytes # (Manual) PT INR Activated Clotting Time POC ABG pH POC ABG pCO2 POC ABG pO2 Sodium 136 L Potassium Chloride 97.6 L Carbon Dioxide BUN Creatinine 0.2 L Glucose 123 H POC Glucose 116 H Calcium Magnesium Direct Bilirubin AST 71 H ALT 125 H Alkaline Phosphatase 158 H Total Creatine Kinase CK-MB (CK-2) CK-MB (CK-2) Rel Index Troponin T C-Reactive Protein Total Protein Albumin 2.6 L Triglycerides Ur Specific [place] Urine WBC (Auto) Miscellaneous Test 05/01/17 05/01/17 05/02/17 11:59 17:23 00:08 WBC RBC Hgb Hct MCV MCH RDW Plt Count Lymph % (Auto) [place] % (Auto) Eos % (Auto) Baso % (Auto) Lymph # Baso # Seg Neutrophils % Lymphocytes % (Manual) Monocytes % (Manual) Nucleated RBC % Seg Neutrophils # Seg Neutrophils # Man Monocytes # (Manual) PT INR Activated Clotting Time POC ABG pH POC ABG pCO2 POC ABG pO2 Sodium Potassium Chloride Carbon Dioxide BUN Creatinine Glucose POC Glucose 118 H 144 H 122 H Calcium Magnesium Direct Bilirubin AST ALT Alkaline Phosphatase Total Creatine Kinase CK-MB (CK-2) CK-MB (CK-2) Rel Index Troponin T C-Reactive Protein Total Protein Albumin Triglycerides Ur Specific [place] Urine WBC (Auto) Miscellaneous Test 05/02/17 05/02/17 05/02/17 05:50 11:21 17:48 WBC RBC Hgb Hct MCV MCH RDW Plt Count Lymph % (Auto) [place] % (Auto) Eos % (Auto) Baso % (Auto) Lymph # Baso # Seg Neutrophils % Lymphocytes % (Manual) Monocytes % (Manual) Nucleated RBC % Seg Neutrophils # Seg Neutrophils # Man Monocytes # (Manual) PT INR Activated Clotting Time POC ABG pH POC ABG pCO2 POC ABG pO2 Sodium Potassium Chloride Carbon Dioxide BUN Creatinine Glucose POC Glucose 120 H 121 H 140 H Calcium Magnesium Direct Bilirubin AST ALT Alkaline Phosphatase Total Creatine Kinase CK-MB (CK-2) CK-MB (CK-2) Rel Index Troponin T C-Reactive Protein Total Protein Albumin Triglycerides Ur Specific [place] Urine WBC (Auto) Miscellaneous Test 05/02/17 05/03/17 05/03/17 23:12 05:35 11:52 WBC RBC Hgb Hct MCV MCH RDW Plt Count Lymph % (Auto) [place] % (Auto) Eos % (Auto) Baso % (Auto) Lymph # Baso # Seg Neutrophils % Lymphocytes % (Manual) Monocytes % (Manual) Nucleated RBC % Seg Neutrophils # Seg Neutrophils # Man Monocytes # (Manual) PT INR Activated Clotting Time POC ABG pH POC ABG pCO2 POC ABG pO2 Sodium Potassium Chloride Carbon Dioxide BUN Creatinine Glucose POC Glucose 128 H 113 H 126 H Calcium Magnesium Direct Bilirubin AST ALT Alkaline Phosphatase Total Creatine Kinase CK-MB (CK-2) CK-MB (CK-2) Rel Index Troponin T C-Reactive Protein Total Protein Albumin Triglycerides Ur Specific [place] Urine WBC (Auto) Miscellaneous Test 05/03/17 05/03/17 05/04/17 17:29 23:26 04:55 WBC RBC Hgb Hct MCV MCH RDW Plt Count Lymph % (Auto) [place] % (Auto) Eos % (Auto) Baso % (Auto) Lymph # Baso # Seg Neutrophils % Lymphocytes % (Manual) Monocytes % (Manual) Nucleated RBC % Seg Neutrophils # Seg Neutrophils # Man Monocytes # (Manual) PT INR Activated Clotting Time POC ABG pH POC ABG pCO2 POC ABG pO2 Sodium Potassium Chloride Carbon Dioxide BUN Creatinine Glucose POC Glucose 141 H 129 H 126 H Calcium Magnesium Direct Bilirubin AST ALT Alkaline Phosphatase Total Creatine Kinase CK-MB (CK-2) CK-MB (CK-2) Rel Index Troponin T C-Reactive Protein Total Protein Albumin Triglycerides Ur Specific [place] Urine WBC (Auto) Miscellaneous Test 05/04/17 05/04/17 05/05/17 12:09 17:46 00:06 WBC RBC Hgb Hct MCV MCH RDW Plt Count Lymph % (Auto) [place] % (Auto) Eos % (Auto) Baso % (Auto) Lymph # Baso # Seg Neutrophils % Lymphocytes % (Manual) Monocytes % (Manual) Nucleated RBC % Seg Neutrophils # Seg Neutrophils # Man Monocytes # (Manual) PT INR Activated Clotting Time POC ABG pH POC ABG pCO2 POC ABG pO2 Sodium Potassium Chloride Carbon Dioxide BUN Creatinine Glucose POC Glucose 125 H 125 H 110 H Calcium Magnesium Direct Bilirubin AST ALT Alkaline Phosphatase Total Creatine Kinase CK-MB (CK-2) CK-MB (CK-2) Rel Index Troponin T C-Reactive Protein Total Protein Albumin Triglycerides Ur Specific [place] Urine WBC (Auto) Miscellaneous Test 05/05/17 05/05/17 05/05/17 05:48 11:41 16:19 WBC RBC Hgb Hct MCV MCH RDW Plt Count Lymph % (Auto) [place] % (Auto) Eos % (Auto) Baso % (Auto) Lymph # Baso # Seg Neutrophils % Lymphocytes % (Manual) Monocytes % (Manual) Nucleated RBC % Seg Neutrophils # Seg Neutrophils # Man Monocytes # (Manual) PT INR Activated Clotting Time POC ABG pH POC ABG pCO2 POC ABG pO2 Sodium Potassium Chloride Carbon Dioxide BUN Creatinine Glucose POC Glucose 124 H 122 H 120 H Calcium Magnesium Direct Bilirubin AST ALT Alkaline Phosphatase Total Creatine Kinase CK-MB (CK-2) CK-MB (CK-2) Rel Index Troponin T C-Reactive Protein Total Protein Albumin Triglycerides Ur Specific [place] Urine WBC (Auto) Miscellaneous Test 05/06/17 05/06/17 05/06/17 00:16 05:47 11:42 WBC RBC Hgb Hct MCV MCH RDW Plt Count Lymph % (Auto) [place] % (Auto) Eos % (Auto) Baso % (Auto) Lymph # Baso # Seg Neutrophils % Lymphocytes % (Manual) Monocytes % (Manual) Nucleated RBC % Seg Neutrophils # Seg Neutrophils # Man Monocytes # (Manual) PT INR Activated Clotting Time POC ABG pH POC ABG pCO2 POC ABG pO2 Sodium Potassium Chloride Carbon Dioxide BUN Creatinine Glucose POC Glucose 110 H 142 H 120 H Calcium Magnesium Direct Bilirubin AST ALT Alkaline Phosphatase Total Creatine Kinase CK-MB (CK-2) CK-MB (CK-2) Rel Index Troponin T C-Reactive Protein Total Protein Albumin Triglycerides Ur Specific [place] Urine WBC (Auto) Miscellaneous Test 05/06/17 05/07/17 05/07/17 17:46 00:07 05:28 WBC RBC Hgb Hct MCV MCH RDW Plt Count Lymph % (Auto) [place] % (Auto) Eos % (Auto) Baso % (Auto) Lymph # Baso # Seg Neutrophils % Lymphocytes % (Manual) Monocytes % (Manual) Nucleated RBC % Seg Neutrophils # Seg Neutrophils # Man Monocytes # (Manual) PT INR Activated Clotting Time POC ABG pH POC ABG pCO2 POC ABG pO2 Sodium Potassium Chloride Carbon Dioxide BUN Creatinine Glucose POC Glucose 127 H 145 H 124 H Calcium Magnesium Direct Bilirubin AST ALT Alkaline Phosphatase Total Creatine Kinase CK-MB (CK-2) CK-MB (CK-2) Rel Index Troponin T C-Reactive Protein Total Protein Albumin Triglycerides Ur Specific [place] Urine WBC (Auto) Miscellaneous Test 05/07/17 05/07/17 05/08/17 11:17 17:14 00:03 WBC RBC Hgb Hct MCV MCH RDW Plt Count Lymph % (Auto) [place] % (Auto) Eos % (Auto) Baso % (Auto) Lymph # Baso # Seg Neutrophils % Lymphocytes % (Manual) Monocytes % (Manual) Nucleated RBC % Seg Neutrophils # Seg Neutrophils # Man Monocytes # (Manual) PT INR Activated Clotting Time POC ABG pH POC ABG pCO2 POC ABG pO2 Sodium Potassium Chloride Carbon Dioxide BUN Creatinine Glucose POC Glucose 144 H 125 H 122 H Calcium Magnesium Direct Bilirubin AST ALT Alkaline Phosphatase Total Creatine Kinase CK-MB (CK-2) CK-MB (CK-2) Rel Index Troponin T C-Reactive Protein Total Protein Albumin Triglycerides Ur Specific [place] Urine WBC (Auto) Miscellaneous Test 05/08/17 05/08/17 05/08/17 05:43 12:07 18:02 WBC RBC Hgb Hct MCV MCH RDW Plt Count Lymph % (Auto) [place] % (Auto) Eos % (Auto) Baso % (Auto) Lymph # Baso # Seg Neutrophils % Lymphocytes % (Manual) Monocytes % (Manual) Nucleated RBC % Seg Neutrophils # Seg Neutrophils # Man Monocytes # (Manual) PT INR Activated Clotting Time POC ABG pH POC ABG pCO2 POC ABG pO2 Sodium Potassium Chloride Carbon Dioxide BUN Creatinine Glucose POC Glucose 117 H 114 H 129 H Calcium Magnesium Direct Bilirubin AST ALT Alkaline Phosphatase Total Creatine Kinase CK-MB (CK-2) CK-MB (CK-2) Rel Index Troponin T C-Reactive Protein Total Protein Albumin Triglycerides Ur Specific [place] Urine WBC (Auto) Miscellaneous Test 05/08/17 05/09/17 05/09/17 23:53 04:19 05:14 WBC RBC Hgb Hct MCV MCH RDW Plt Count Lymph % (Auto) [place] % (Auto) Eos % (Auto) Baso % (Auto) Lymph # Baso # Seg Neutrophils % Lymphocytes % (Manual) Monocytes % (Manual) Nucleated RBC % Seg Neutrophils # Seg Neutrophils # Man Monocytes # (Manual) PT INR Activated Clotting Time POC ABG pH 7.524 H POC ABG pCO2 34.7 L POC ABG pO2 107 H Sodium Potassium Chloride Carbon Dioxide BUN Creatinine Glucose POC Glucose 125 H 118 H Calcium Magnesium Direct Bilirubin AST ALT Alkaline Phosphatase Total Creatine Kinase CK-MB (CK-2) CK-MB (CK-2) Rel Index Troponin T C-Reactive Protein Total Protein Albumin Triglycerides Ur Specific [place] Urine WBC (Auto) Miscellaneous Test 05/10/17 05/11/17 05/11/17 23:54 05:48 23:50 WBC RBC Hgb Hct MCV MCH RDW Plt Count Lymph % (Auto) [place] % (Auto) Eos % (Auto) Baso % (Auto) Lymph # Baso # Seg Neutrophils % Lymphocytes % (Manual) Monocytes % (Manual) Nucleated RBC % Seg Neutrophils # Seg Neutrophils # Man Monocytes # (Manual) PT INR Activated Clotting Time POC ABG pH POC ABG pCO2 POC ABG pO2 Sodium Potassium Chloride Carbon Dioxide BUN Creatinine Glucose POC Glucose 126 H 137 H 130 H Calcium Magnesium Direct Bilirubin AST ALT Alkaline Phosphatase Total Creatine Kinase CK-MB (CK-2) CK-MB (CK-2) Rel Index Troponin T C-Reactive Protein Total Protein Albumin Triglycerides Ur Specific [place] Urine WBC (Auto) Miscellaneous Test 05/12/17 05/12/17 05/12/17 05:48 11:33 18:00 WBC RBC Hgb Hct MCV MCH RDW Plt Count Lymph % (Auto) [place] % (Auto) Eos % (Auto) Baso % (Auto) Lymph # Baso # Seg Neutrophils % Lymphocytes % (Manual) Monocytes % (Manual) Nucleated RBC % Seg Neutrophils # Seg Neutrophils # Man Monocytes # (Manual) PT INR Activated Clotting Time POC ABG pH POC ABG pCO2 POC ABG pO2 Sodium Potassium Chloride Carbon Dioxide BUN Creatinine Glucose POC Glucose 126 H 116 H 131 H Calcium Magnesium Direct Bilirubin AST ALT Alkaline Phosphatase Total Creatine Kinase CK-MB (CK-2) CK-MB (CK-2) Rel Index Troponin T C-Reactive Protein Total Protein Albumin Triglycerides Ur Specific [place] Urine WBC (Auto) Miscellaneous Test 05/14/17 05/15/17 05/15/17 11:45 11:27 17:42 WBC RBC Hgb Hct MCV MCH RDW Plt Count Lymph % (Auto) [place] % (Auto) Eos % (Auto) Baso % (Auto) Lymph # Baso # Seg Neutrophils % Lymphocytes % (Manual) Monocytes % (Manual) Nucleated RBC % Seg Neutrophils # Seg Neutrophils # Man Monocytes # (Manual) PT INR Activated Clotting Time POC ABG pH POC ABG pCO2 POC ABG pO2 Sodium Potassium Chloride Carbon Dioxide BUN Creatinine Glucose POC Glucose 123 H 129 H 125 H Calcium Magnesium Direct Bilirubin AST ALT Alkaline Phosphatase Total Creatine Kinase CK-MB (CK-2) CK-MB (CK-2) Rel Index Troponin T C-Reactive Protein Total Protein Albumin Triglycerides Ur Specific [place] Urine WBC (Auto) Miscellaneous Test 05/16/17 05/16/17 05/17/17 00:29 06:50 03:45 WBC RBC Hgb 11.7 L Hct 34.8 L MCV MCH RDW 15.5 H Plt Count Lymph % (Auto) [place] % (Auto) 7.7 H Eos % (Auto) Baso % (Auto) Lymph # Baso # Seg Neutrophils % 73.7 H Lymphocytes % (Manual) Monocytes % (Manual) Nucleated RBC % Seg Neutrophils # Seg Neutrophils # Man Monocytes # (Manual) PT INR Activated Clotting Time POC ABG pH POC ABG pCO2 POC ABG pO2 Sodium Potassium Chloride Carbon Dioxide BUN Creatinine Glucose POC Glucose 141 H 138 H Calcium Magnesium Direct Bilirubin AST ALT Alkaline Phosphatase Total Creatine Kinase CK-MB (CK-2) CK-MB (CK-2) Rel Index Troponin T C-Reactive Protein Total Protein Albumin Triglycerides Ur Specific [place] Urine WBC (Auto) Miscellaneous Test 05/17/17 03:45 WBC RBC Hgb Hct MCV MCH RDW Plt Count Lymph % (Auto) [place] % (Auto) Eos % (Auto) Baso % (Auto) Lymph # Baso # Seg Neutrophils % Lymphocytes % (Manual) Monocytes % (Manual) Nucleated RBC % Seg Neutrophils # Seg Neutrophils # Man Monocytes # (Manual) PT INR Activated Clotting Time POC ABG pH POC ABG pCO2 POC ABG pO2 Sodium Potassium Chloride Carbon Dioxide BUN Creatinine 0.2 L Glucose 131 H POC Glucose Calcium Magnesium Direct Bilirubin AST ALT Alkaline Phosphatase Total Creatine Kinase CK-MB (CK-2) CK-MB (CK-2) Rel Index Troponin T C-Reactive Protein Total Protein Albumin Triglycerides Ur Specific [place] Urine WBC (Auto) Miscellaneous Test Chest x-ray: report reviewed, image reviewed
[2017-05-17] MEDS: TRANSDERM-SCOP TD SCH (18:50)
[2017-05-18] MEDS: ASPIRIN PO SCH (11:08)
[2017-05-18] MEDS: PLAVIX PO SCH (11:08)
[2017-05-18] MEDS: PROTONIX FEEDTUBE SCH (11:08)
[2017-05-18] MEDS: ELIQUIS PO SCH (11:09)
[2017-05-18] MEDS: LOPRESSOR PO SCH (11:09)
[2017-05-18] MEDS: ZESTRIL PO SCH (11:10)
[2017-05-18] MEDS: CORDARONE PO SCH (12:01)
--- NOTE | 2017-05-18 13:04 | Progress Note ---
Assessment and Plan Assessment and plan: --s/p cardiac arrest /anoxic encephalopathy/vegetative state -- acute hypoxic hypercapnic respiratory failure ; status post trach, vent dependent, --Acute anterior STEMI; status post PCI, --s/p MRSA pneumonia/aspiration pneumonia, s/p full treatment, contact isolation --Hypertension; BP in the lower range. -- aspiration pneumonia; sepsis; received full course of antibiotics --Cardiogenic shock; off pressors, --s/p trach and PEG, continue PEG feeds --Severe Protein calorie malnutrition: Peg feeds and nutrition suppliments --DVT prophylaxis; Lovenox On the new on the current management --Full CODE STATUS Poor prognosis family aware, Had family meeting recently with the job spotter and neurology Family has unrealistic expectations , requests to continue full CODE STATUS Continue current management History Interval history: Patient seen and examined medical records reviewed Unresponsive, tracheostomy vent dependent Vital signs reviewed Awaiting placement Full CODE STATUS Hospitalist Physical - Constitutional Vitals: Temp Pulse Resp BP Pulse Ox 97.5 F L 75 20 96/55 97 05/18/17 12:00 05/18/17 12:00 05/18/17 12:00 05/18/17 12:00 05/18/17 12:00 General appearance: Present: no acute distress, well-nourished, other ( tracheostomy on vent) - EENT Eyes: Present: PERRL, EOM intact - Neck Neck: Present: supple - Respiratory Respiratory effort: normal Respiratory: bilateral: diminished, rhonchi, negative: rales, wheezing - Cardiovascular Rhythm: regular Heart Sounds: Present: S1 & S2 - Extremities Extremities: no ischemia, No edema - Abdominal General gastrointestinal: soft, non-distended, normal bowel sounds, other ( PEG in place) - Integumentary Integumentary: Present: clear, warm - Psychiatric Psychiatric: appropriate mood/affect, cooperative - Neurologic Neurologic: CNII-XII intact, moves all extremities Results - Labs CBC & Chem 7: 05/17/17 03:45 05/17/17 03:45 Labs: Laboratory Last Values WBC 9.4 K/mm3 (4.5-11.0) 05/17/17 03:45 RBC 3.85 M/mm3 (3.65-5.03) 05/17/17 03:45 Hgb 11.7 gm/dl (11.8-15.2) L 05/17/17 03:45 Hct 34.8 % (35.5-45.6) L 05/17/17 03:45 MCV 90 fl (84-94) 05/17/17 03:45 MCH 31 pg (28-32) 05/17/17 03:45 MCHC 34 % (32-34) 05/17/17 03:45 RDW 15.5 % (13.2-15.2) H 05/17/17 03:45 Plt Count 289 K/mm3 (140-440) 05/17/17 03:45 Lymph % (Auto) 15.6 % (13.4-35.0) 05/17/17 03:45 [place] % (Auto) 7.7 % (0.0-7.3) H 05/17/17 03:45 Eos % (Auto) 2.7 % (0.0-4.3) 05/17/17 03:45 Baso % (Auto) 0.3 % (0.0-1.8) 05/17/17 03:45 Lymph # 1.5 K/mm3 (1.2-5.4) 05/17/17 03:45 [place] # 0.7 K/mm3 (0.0-0.8) 05/17/17 03:45 Eos # 0.3 K/mm3 (0.0-0.4) 05/17/17 03:45 Baso # 0.0 K/mm3 (0.0-0.1) 05/17/17 03:45 Add Manual Diff Complete 03/30/17 03:50 Total Counted 100 03/30/17 03:50 Seg Neutrophils % 73.7 % (40.0-70.0) H 05/17/17 03:45 Seg Neuts % (Manual) 65.0 % (40.0-70.0) 03/30/17 03:50 Band Neutrophils % 17.0 % 03/30/17 03:50 Lymphocytes % (Manual) 7.0 % (13.4-35.0) L 03/30/17 03:50 Reactive Lymphs % (Man) 0 % 03/30/17 03:50 Monocytes % (Manual) 7.0 % (0.0-7.3) 03/30/17 03:50 Eosinophils % (Manual) 0 % (0.0-4.3) 03/30/17 03:50 Basophils % (Manual) 0 % (0.0-1.8) 03/30/17 03:50 Metamyelocytes % 4.0 % 03/30/17 03:50 Myelocytes % 0 % 03/30/17 03:50 Promyelocytes % 0 % 03/30/17 03:50 Blast Cells % 0 % 03/30/17 03:50 Nucleated RBC % Not Reportable 03/30/17 03:50 Seg Neutrophils # 6.9 K/mm3 (1.8-7.7) 05/17/17 03:45 Seg Neutrophils # Man 12.7 K/mm3 (1.8-7.7) H 03/30/17 03:50 Band Neutrophils # 3.3 K/mm3 03/30/17 03:50 Lymphocytes # (Manual) 1.4 K/mm3 (1.2-5.4) 03/30/17 03:50 Abs React Lymphs (Man) 0.0 K/mm3 03/30/17 03:50 Monocytes # (Manual) 1.4 K/mm3 (0.0-0.8) H 03/30/17 03:50 Eosinophils # (Manual) 0.0 K/mm3 (0.0-0.4) 03/30/17 03:50 Basophils # (Manual) 0.0 K/mm3 (0.0-0.1) 03/30/17 03:50 Metamyelocytes # 0.8 K/mm3 03/30/17 03:50 Myelocytes # 0.0 K/mm3 03/30/17 03:50 Promyelocytes # 0.0 K/mm3 03/30/17 03:50 Blast Cells # 0.0 K/mm3 03/30/17 03:50 WBC Morphology Not Reportable 03/30/17 03:50 Hypersegmented Neuts Not Reportable 03/30/17 03:50 Hyposegmented Neuts Not Reportable 03/30/17 03:50 Hypogranular Neuts Not Reportable 03/30/17 03:50 Smudge Cells Not Reportable 03/30/17 03:50 Toxic Granulation Not Reportable 03/30/17 03:50 Toxic Vacuolation Not Reportable 03/30/17 03:50 Dohle Bodies Not Reportable 03/30/17 03:50 Pelger-Huet Anomaly Not Reportable 03/30/17 03:50 Sherry Rods Not Reportable 03/30/17 03:50 Platelet Estimate Appears normal 03/30/17 03:50 Clumped Platelets Not Reportable 03/30/17 03:50 Plt Clumps, EDTA Not Reportable 03/30/17 03:50 Large Platelets Not Reportable 03/30/17 03:50 Giant Platelets Not Reportable 03/30/17 03:50 Platelet Satelliting Not Reportable 03/30/17 03:50 Plt Morphology Comment Not Reportable 03/30/17 03:50 RBC Morphology Not Reportable 03/30/17 03:50 Dimorphic RBCs Not Reportable 03/30/17 03:50 Polychromasia Not Reportable 03/30/17 03:50 Hypochromasia Not Reportable 03/30/17 03:50 Poikilocytosis Not Reportable 03/30/17 03:50 Anisocytosis Few 03/30/17 03:50 Microcytosis Not Reportable 03/30/17 03:50 Macrocytosis Not Reportable 03/30/17 03:50 Spherocytes Not Reportable 03/30/17 03:50 Pappenheimer Bodies Not Reportable 03/30/17 03:50 Sickle Cells Not Reportable 03/30/17 03:50 Target Cells Not Reportable 03/30/17 03:50 Tear Drop Cells Not Reportable 03/30/17 03:50 Ovalocytes Not Reportable 03/30/17 03:50 Helmet Cells Not Reportable 03/30/17 03:50 Tam[place]o-Bendena Bodies Not Reportable 03/30/17 03:50 [place] Rings Not Reportable 03/30/17 03:50 [place] Cells Not Reportable 03/30/17 03:50 Bite Cells Not Reportable 03/30/17 03:50 Crenated Cell Not Reportable 03/30/17 03:50 Elliptocytes Not Reportable 03/30/17 03:50 Acanthocytes (Spur) Not Reportable 03/30/17 03:50 [place]leaux Not Reportable 03/30/17 03:50 Hemoglobin C Crystals Not Reportable 03/30/17 03:50 Schistocytes Not Reportable 03/30/17 03:50 Malaria parasites Not Reportable 03/30/17 03:50 [place] Bodies Not Reportable 03/30/17 03:50 Hem Pathologist Commnt No 03/30/17 03:50 PT 14.9 Sec. (12.2-14.9) 04/10/17 04:16 INR 1.11 (0.87-1.13) 04/10/17 04:16 APTT 27.8 Sec. (24.2-36.6) 04/10/17 04:16 Activated Clotting Time 92 (74-137) 03/29/17 17:47 POC ABG pH 7.524 (7.35-7.45) H 05/09/17 04:19 POC ABG pCO2 34.7 (35-45) L 05/09/17 04:19 POC ABG pO2 107 (80-105) H 05/09/17 04:19 POC ABG HCO3 28.6 05/09/17 04:19 POC ABG Total CO2 30 05/09/17 04:19 POC ABG O2 Sat 99 05/09/17 04:19 POC ABG Base Excess 6 05/09/17 04:19 FiO2 25 % 05/09/17 04:19 Sodium 140 mmol/L (137-145) 05/17/17 03:45 Potassium 3.8 mmol/L (3.6-5.0) 05/17/17 03:45 Chloride 100.5 mmol/L (98-107) 05/17/17 03:45 Carbon Dioxide 25 mmol/L (22-30) 05/17/17 03:45 Anion Gap 18 mmol/L 05/17/17 03:45 BUN 17 mg/dL (9-20) 05/17/17 03:45 Creatinine 0.2 mg/dL (0.8-1.5) L 05/17/17 03:45 Estimated GFR > 60 ml/min 05/17/17 03:45 BUN/Creatinine Ratio 85 % 05/17/17 03:45 Glucose 131 mg/dL (75-100) H 05/17/17 03:45 POC Glucose 138 (70-105) H 05/16/17 06:50 Calcium 9.1 mg/dL (8.4-10.2) 05/17/17 03:45 Phosphorus 3.50 mg/dL (2.5-4.5) 04/13/17 04:45 Magnesium 1.80 mg/dL (1.7-2.3) 05/01/17 05:30 Total Bilirubin 0.60 mg/dL (0.1-1.2) 05/01/17 05:30 Direct Bilirubin < 0.2 mg/dL (0-0.2) 04/27/17 05:40 Indirect Bilirubin 0.3 mg/dL 04/25/17 04:51 AST 71 units/L (5-40) H 05/01/17 05:30 ALT 125 units/L (7-56) H 05/01/17 05:30 Alkaline Phosphatase 158 units/L (35-129) H 05/01/17 05:30 Total Creatine Kinase 1404 units/L (55-170) H 04/12/17 21:36 CK-MB (CK-2) 8.0 ng/mL (0.0-4.0) H 04/12/17 21:36 CK-MB (CK-2) Rel Index 0.5 (0-4) 04/12/17 21:36 Troponin T 0.767 ng/mL (0.00-0.029) H* 04/12/17 21:36 C-Reactive Protein 21.80 mg/dL (0.00-1.30) H 03/30/17 16:04 Total Protein 6.7 g/dL (6.3-8.2) 05/01/17 05:30 Albumin 2.6 g/dL (3.9-5) L 05/01/17 05:30 Albumin/Globulin Ratio 0.6 % 05/01/17 05:30 Triglycerides 151 mg/dL (2-149) H 04/01/17 04:29 Cholesterol 164 mg/dL (50-199) 03/29/17 19:52 LDL Cholesterol Direct 81 mg/dL (50-130) 03/29/17 19:52 HDL Cholesterol 44 mg/dL (40-59) 03/29/17 19:52 Cholesterol/HDL Ratio 3.72 % 03/29/17 19:52 Urine Color [place] (Yellow) 04/21/17 22:00 Urine Turbidity Clear (Clear) 04/21/17 22:00 Urine pH 5.0 (5.0-7.0) 04/21/17 22:00 Ur Specific [place] 1.029 (1.003-1.030) 04/21/17 22:00 Urine Protein 30 mg/dl mg/dL (Negative) 04/21/17 22:00 Urine Glucose (UA) Neg mg/dL (Negative) 04/21/17 22:00 Urine Ketones Neg mg/dL (Negative) 04/21/17 22:00 Urine Blood Mod (Negative) 04/21/17 22:00 Urine Nitrite Neg (Negative) 04/21/17 22:00 Urine Bilirubin Neg (Negative) 04/21/17 22:00 Urine Urobilinogen 4.0 mg/dL (<2.0) 04/21/17 22:00 Ur Leukocyte Esterase Neg (Negative) 04/21/17 22:00 Urine WBC (Auto) 10.0 /HPF (0.0-6.0) H 04/21/17 22:00 Urine RBC (Auto) 44.0 /HPF (0.0-6.0) 04/21/17 22:00 U Epithel Cells (Auto) < 1.0 /HPF (0-13.0) 04/21/17 22:00 Amorphous Crystals 1+ 03/30/17 09:45 Urine Mucus 3+ /HPF 04/21/17 22:00 Urine Opiates Screen Presumptive negative 03/30/17 09:45 Urine Methadone Screen Presumptive negative 03/30/17 09:45 Ur Barbiturates Screen Presumptive negative 03/30/17 09:45 Ur Phencyclidine Scrn Presumptive negative 03/30/17 09:45 Ur Amphetamines Screen Presumptive positive 03/30/17 09:45 U Benzodiazepines Scrn Presumptive positive 03/30/17 09:45 Urine Cocaine Screen Presumptive negative 03/30/17 09:45 U Marijuana (THC) Screen Presumptive negative 03/30/17 09:45 Drugs of Abuse Note Disclamer 03/30/17 09:45 Miscellaneous Test Flexitest 1 H 04/25/17 07:07 Blood Type O POSITIVE 03/29/17 11:35 Antibody Screen Negative 03/29/17 11:35
--- NOTE | 2017-05-18 14:35 | Progress Note ---
Assessment and Plan Imp: 1. s/p CP arrest 2. Anoxic enceph. 3. Acute respiratory failure, hypoxia 4. s/p Trach/PEG 5. Hypernatremia 6. STEMI/ICMP 7. UTI Rec: 1. 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 Plavix 3. TFs, DVT/GI PPx 4. No hematuria in lazaro bag 5. Dismal prognosis and bad outcome is expected as explained by neurology and Dr. Ham (see previous notes); they have unrealistic expectations and thus he remains full support/full code 6. Complex patient Plan of care reviewed with sister at bedside, she understands/agrees; explained he is not likely to come off vent Subjective Date of service: 05/18/17 Principal diagnosis: coma,ARV,s/p arrest Interval history: No events. Eyes open but unresponsive. Apnea on PSV today. Cannot give history. Active Medications Albuterol (Proventil) 2.5 mg IH Q3HRT PRN PRN Reason: Shortness Of Breath Last Admin: 04/13/17 21:25 Dose: 2.5 mg Amiodarone HCl (Cordarone) 200 mg PO BID [facility] Last Admin: 05/18/17 12:01 Dose: 200 mg Apixaban (Eliquis) 5 mg PO Q12HR [facility] PRN Reason: Protocol Last Admin: 05/18/17 11:09 Dose: 5 mg Aspirin (Aspirin) 325 mg PO QDAY [facility] Last Admin: 05/18/17 11:08 Dose: 325 mg Atorvastatin Calcium (Lipitor) 20 mg PO QHS [facility] Last Admin: 05/17/17 22:08 Dose: 20 mg Clopidogrel Bisulfate (Plavix) 75 mg PO QDAY [facility] Last Admin: 05/18/17 11:08 Dose: 75 mg Dextrose (D50w (25gm) Syringe) 50 ml IV PRN PRN PRN Reason: Hypoglycemia Hydrophilic Ointment (Vaseline Lip Therapy) 1 applic TP Q2HR PRN PRN Reason: Dry Lips Last Admin: 05/01/17 00:35 Dose: 1 applic Lisinopril (Zestril) 2.5 mg PO QDAY [facility] Last Admin: 05/18/17 11:10 Dose: Not Given Metoprolol Tartrate (Lopressor) 2.5 mg IV Q4HR PRN PRN Reason: HR>130 Last Admin: 04/09/17 19:41 Dose: 2.5 mg Metoprolol Tartrate (Lopressor) 12.5 mg PO BID [facility] Last Admin: 05/18/17 11:09 Dose: Not Given Multi-Ingred Cream/Lotion/Oil/Oint (Artificial Tears Ophth Oint) 1 applic OU Q4HR PRN PRN Reason: Dry Eye(s) Last Admin: 03/31/17 22:51 Dose: 1 applic Pantoprazole (Protonix) 40 mg FEEDTUBE DAILY [facility] Last Admin: 05/18/17 11:08 Dose: 40 mg Scopolamine (Transderm-Scop) 1 each TD Q3D [facility] Last Admin: 05/17/17 18:50 Dose: 1 each Zolpidem Tartrate (Ambien) 10 mg PO QHS PRN PRN Reason: Insomnia Objective Vital Signs - 12hr 05/18/17 05/18/17 05/18/17 03:00 04:00 04:28 Temperature 98.6 F Pulse Rate 73 80 74 Respiratory 21 21 Rate Blood Pressure 92/52 95/60 102/50 O2 Sat by Pulse 96 97 98 Oximetry O2 Sat by Pulse Oximetry [ Assessment] 05/18/17 05/18/17 05/18/17 05:00 06:00 07:00 Temperature Pulse Rate 68 73 71 Respiratory 21 25 H 17 Rate Blood Pressure 99/61 104/67 95/60 O2 Sat by Pulse 94 98 99 Oximetry O2 Sat by Pulse Oximetry [ Assessment] 05/18/17 05/18/17 05/18/17 07:18 07:22 08:00 Temperature 97.5 F L Pulse Rate 75 64 Respiratory 17 Rate Blood Pressure 96/59 94/51 O2 Sat by Pulse 100 98 Oximetry O2 Sat by Pulse 100 Oximetry [ Assessment] 05/18/17 05/18/17 05/18/17 09:00 10:00 11:00 Temperature Pulse Rate 74 61 77 Respiratory 13 19 22 Rate Blood Pressure 86/56 82/46 99/57 O2 Sat by Pulse 98 100 98 Oximetry O2 Sat by Pulse Oximetry [ Assessment] 05/18/17 05/18/17 11:09 12:00 Temperature 97.5 F L Pulse Rate 76 69 Respiratory 20 Rate Blood Pressure 99/57 89/53 O2 Sat by Pulse 100 Oximetry O2 Sat by Pulse Oximetry [ Assessment] Constitutional: no acute distress, comatose Eyes: non-icteric ENT: oropharynx moist Neck: supple, other (tracheotomy ) Effort: normal Ascultation: Bilateral: other (coarse BS bilaterally) Percussion: Bilateral: not dull Cardiovascular: regular rate and rhythm Gastrointestinal: normoactive bowel sounds, soft, non-tender, non-distended Integumentary: normal Extremities: no cyanosis, no edema, pink and warm Neurologic: other (nonresponsive with flaccid extremities) Psychiatric: other (eyes open spontaneously but does not follow any voice commands, otherwise nonresponsive except for pain) CBC and BMP: 05/17/17 03:45 05/17/17 03:45 ABG, PT/INR, D-dimer: ABG POC ABG pH 7.524 (7.35-7.45) H 05/09/17 04:19 POC ABG pCO2 34.7 (35-45) L 05/09/17 04:19 POC ABG pO2 107 (80-105) H 05/09/17 04:19 POC ABG HCO3 28.6 05/09/17 04:19 POC ABG Total CO2 30 05/09/17 04:19 POC ABG O2 Sat 99 05/09/17 04:19 PT/INR, D-dimer PT 14.9 Sec. (12.2-14.9) 04/10/17 04:16 INR 1.11 (0.87-1.13) 04/10/17 04:16 Abnormal lab findings: Abnormal Labs 03/29/17 03/29/17 03/29/17 11:35 11:35 11:40 WBC RBC Hgb Hct MCV 98 H MCH 33 H RDW Plt Count Lymph % (Auto) [place] % (Auto) Eos % (Auto) Baso % (Auto) Lymph # Baso # Seg Neutrophils % Lymphocytes % (Manual) Monocytes % (Manual) 9.0 H Nucleated RBC % 1.0 H Seg Neutrophils # Seg Neutrophils # Man Monocytes # (Manual) 0.9 H PT 15.8 H INR 1.20 H Activated Clotting Time POC ABG pH POC ABG pCO2 POC ABG pO2 Sodium Potassium 2.7 L* Chloride 95.3 L Carbon Dioxide 17 L BUN Creatinine Glucose 435 H POC Glucose Calcium Magnesium Direct Bilirubin AST ALT Alkaline Phosphatase Total Creatine Kinase CK-MB (CK-2) CK-MB (CK-2) Rel Index Troponin T C-Reactive Protein Total Protein 6.1 L Albumin 3.5 L Triglycerides Ur Specific [place] Urine WBC (Auto) Miscellaneous Test 03/29/17 03/29/17 03/29/17 12:34 13:10 13:25 WBC RBC Hgb Hct MCV MCH RDW Plt Count Lymph % (Auto) [place] % (Auto) Eos % (Auto) Baso % (Auto) Lymph # Baso # Seg Neutrophils % Lymphocytes % (Manual) Monocytes % (Manual) Nucleated RBC % Seg Neutrophils # Seg Neutrophils # Man Monocytes # (Manual) PT INR Activated Clotting Time 142 H 169 H 175 H POC ABG pH POC ABG pCO2 POC ABG pO2 Sodium Potassium Chloride Carbon Dioxide BUN Creatinine Glucose POC Glucose Calcium Magnesium Direct Bilirubin AST ALT Alkaline Phosphatase Total Creatine Kinase CK-MB (CK-2) CK-MB (CK-2) Rel Index Troponin T C-Reactive Protein Total Protein Albumin Triglycerides Ur Specific [place] Urine WBC (Auto) Miscellaneous Test 03/29/17 03/29/17 03/29/17 14:50 15:18 19:52 WBC RBC Hgb Hct MCV MCH RDW Plt Count Lymph % (Auto) [place] % (Auto) Eos % (Auto) Baso % (Auto) Lymph # Baso # Seg Neutrophils % Lymphocytes % (Manual) Monocytes % (Manual) Nucleated RBC % Seg Neutrophils # Seg Neutrophils # Man Monocytes # (Manual) PT INR Activated Clotting Time 175 H POC ABG pH 7.293 L POC ABG pCO2 POC ABG pO2 602 H Sodium Potassium Chloride Carbon Dioxide BUN Creatinine Glucose POC Glucose Calcium Magnesium Direct Bilirubin AST ALT Alkaline Phosphatase Total Creatine Kinase 7263 H CK-MB (CK-2) > 300.0 H CK-MB (CK-2) Rel Index 4.1 H Troponin T 8.080 H* D C-Reactive Protein Total Protein Albumin Triglycerides 195 H Ur Specific [place] Urine WBC (Auto) Miscellaneous Test 03/30/17 03/30/17 03/30/17 03:50 03:50 06:19 WBC 19.5 H RBC Hgb Hct MCV MCH RDW Plt Count Lymph % (Auto) [place] % (Auto) Eos % (Auto) Baso % (Auto) Lymph # Baso # Seg Neutrophils % Lymphocytes % (Manual) 7.0 L Monocytes % (Manual) Nucleated RBC % Seg Neutrophils # Seg Neutrophils # Man 12.7 H Monocytes # (Manual) 1.4 H PT INR Activated Clotting Time POC ABG pH POC ABG pCO2 28.2 L POC ABG pO2 108 H Sodium Potassium Chloride 108.9 H Carbon Dioxide 15 L BUN 25 H Creatinine Glucose 158 H POC Glucose Calcium 8.1 L Magnesium Direct Bilirubin AST ALT Alkaline Phosphatase Total Creatine Kinase 7963 H CK-MB (CK-2) > 300.0 H CK-MB (CK-2) Rel Index Troponin T 6.850 H* C-Reactive Protein Total Protein Albumin Triglycerides Ur Specific [place] Urine WBC (Auto) Miscellaneous Test 03/30/17 03/30/17 03/31/17 09:45 16:04 02:19 WBC RBC Hgb Hct MCV MCH RDW Plt Count Lymph % (Auto) [place] % (Auto) Eos % (Auto) Baso % (Auto) Lymph # Baso # Seg Neutrophils % Lymphocytes % (Manual) Monocytes % (Manual) Nucleated RBC % Seg Neutrophils # Seg Neutrophils # Man Monocytes # (Manual) PT INR Activated Clotting Time POC ABG pH POC ABG pCO2 POC ABG pO2 Sodium Potassium Chloride Carbon Dioxide BUN Creatinine Glucose POC Glucose 137 H Calcium Magnesium Direct Bilirubin AST ALT Alkaline Phosphatase Total Creatine Kinase CK-MB (CK-2) CK-MB (CK-2) Rel Index Troponin T C-Reactive Protein 21.80 H Total Protein Albumin Triglycerides Ur Specific [place] 1.031 H Urine WBC (Auto) Miscellaneous Test 03/31/17 03/31/17 03/31/17 03:57 06:54 09:22 WBC RBC Hgb Hct MCV MCH RDW Plt Count Lymph % (Auto) [place] % (Auto) Eos % (Auto) Baso % (Auto) Lymph # Baso # Seg Neutrophils % Lymphocytes % (Manual) Monocytes % (Manual) Nucleated RBC % Seg Neutrophils # Seg Neutrophils # Man Monocytes # (Manual) PT INR Activated Clotting Time POC ABG pH 7.475 H POC ABG pCO2 25.4 L POC ABG pO2 62 L Sodium Potassium Chloride Carbon Dioxide 19 L BUN 22 H Creatinine 0.6 L Glucose 148 H POC Glucose 143 H Calcium 8.3 L Magnesium Direct Bilirubin AST ALT Alkaline Phosphatase Total Creatine Kinase CK-MB (CK-2) CK-MB (CK-2) Rel Index Troponin T C-Reactive Protein Total Protein Albumin Triglycerides Ur Specific [place] Urine WBC (Auto) Miscellaneous Test 03/31/17 03/31/17 03/31/17 11:40 17:47 23:38 WBC RBC Hgb Hct MCV MCH RDW Plt Count Lymph % (Auto) [place] % (Auto) Eos % (Auto) Baso % (Auto) Lymph # Baso # Seg Neutrophils % Lymphocytes % (Manual) Monocytes % (Manual) Nucleated RBC % Seg Neutrophils # Seg Neutrophils # Man Monocytes # (Manual) PT INR Activated Clotting Time POC ABG pH POC ABG pCO2 POC ABG pO2 Sodium Potassium Chloride Carbon Dioxide BUN Creatinine Glucose POC Glucose 127 H 137 H 148 H Calcium Magnesium Direct Bilirubin AST ALT Alkaline Phosphatase Total Creatine Kinase CK-MB (CK-2) CK-MB (CK-2) Rel Index Troponin T C-Reactive Protein Total Protein Albumin Triglycerides Ur Specific [place] Urine WBC (Auto) Miscellaneous Test 04/01/17 04/01/17 04/01/17 04:29 05:01 11:54 WBC RBC Hgb Hct MCV MCH RDW Plt Count Lymph % (Auto) [place] % (Auto) Eos % (Auto) Baso % (Auto) Lymph # Baso # Seg Neutrophils % Lymphocytes % (Manual) Monocytes % (Manual) Nucleated RBC % Seg Neutrophils # Seg Neutrophils # Man Monocytes # (Manual) PT INR Activated Clotting Time POC ABG pH 7.513 H POC ABG pCO2 22.1 L POC ABG pO2 64 L Sodium Potassium Chloride Carbon Dioxide BUN Creatinine Glucose POC Glucose 121 H Calcium Magnesium Direct Bilirubin AST ALT Alkaline Phosphatase Total Creatine Kinase CK-MB (CK-2) CK-MB (CK-2) Rel Index Troponin T C-Reactive Protein Total Protein Albumin Triglycerides 151 H Ur Specific [place] Urine WBC (Auto) Miscellaneous Test 04/01/17 04/02/17 04/02/17 18:17 00:11 04:52 WBC RBC Hgb Hct MCV MCH RDW Plt Count Lymph % (Auto) [place] % (Auto) Eos % (Auto) Baso % (Auto) Lymph # Baso # Seg Neutrophils % Lymphocytes % (Manual) Monocytes % (Manual) Nucleated RBC % Seg Neutrophils # Seg Neutrophils # Man Monocytes # (Manual) PT INR Activated Clotting Time POC ABG pH 7.524 H POC ABG pCO2 25.5 L POC ABG pO2 66 L Sodium Potassium Chloride Carbon Dioxide BUN Creatinine Glucose POC Glucose 117 H 122 H Calcium Magnesium Direct Bilirubin AST ALT Alkaline Phosphatase Total Creatine Kinase CK-MB (CK-2) CK-MB (CK-2) Rel Index Troponin T C-Reactive Protein Total Protein Albumin Triglycerides Ur Specific [place] Urine WBC (Auto) Miscellaneous Test 04/02/17 04/02/17 04/02/17 05:18 10:41 12:19 WBC RBC Hgb Hct MCV MCH RDW Plt Count Lymph % (Auto) [place] % (Auto) Eos % (Auto) Baso % (Auto) Lymph # Baso # Seg Neutrophils % Lymphocytes % (Manual) Monocytes % (Manual) Nucleated RBC % Seg Neutrophils # Seg Neutrophils # Man Monocytes # (Manual) PT INR Activated Clotting Time POC ABG pH 7.534 H POC ABG pCO2 27.4 L POC ABG pO2 Sodium Potassium Chloride Carbon Dioxide BUN Creatinine Glucose POC Glucose 132 H 129 H Calcium Magnesium Direct Bilirubin AST ALT Alkaline Phosphatase Total Creatine Kinase CK-MB (CK-2) CK-MB (CK-2) Rel Index Troponin T C-Reactive Protein Total Protein Albumin Triglycerides Ur Specific [place] Urine WBC (Auto) Miscellaneous Test 04/02/17 04/03/17 04/03/17 18:05 00:08 05:09 WBC RBC Hgb Hct MCV MCH RDW Plt Count Lymph % (Auto) [place] % (Auto) Eos % (Auto) Baso % (Auto) Lymph # Baso # Seg Neutrophils % Lymphocytes % (Manual) Monocytes % (Manual) Nucleated RBC % Seg Neutrophils # Seg Neutrophils # Man Monocytes # (Manual) PT INR Activated Clotting Time POC ABG pH 7.455 H POC ABG pCO2 33.2 L POC ABG pO2 120 H Sodium Potassium Chloride Carbon Dioxide BUN Creatinine Glucose POC Glucose 136 H 128 H Calcium Magnesium Direct Bilirubin AST ALT Alkaline Phosphatase Total Creatine Kinase CK-MB (CK-2) CK-MB (CK-2) Rel Index Troponin T C-Reactive Protein Total Protein Albumin Triglycerides Ur Specific [place] Urine WBC (Auto) Miscellaneous Test 04/03/17 04/03/17 04/03/17 06:32 11:54 12:16 WBC 11.9 H RBC Hgb Hct MCV MCH RDW Plt Count 125 L Lymph % (Auto) 4.8 L [place] % (Auto) Eos % (Auto) Baso % (Auto) Lymph # 0.6 L Baso # Seg Neutrophils % 86.7 H Lymphocytes % (Manual) Monocytes % (Manual) Nucleated RBC % Seg Neutrophils # 10.3 H Seg Neutrophils # Man Monocytes # (Manual) PT INR Activated Clotting Time POC ABG pH POC ABG pCO2 POC ABG pO2 Sodium Potassium Chloride Carbon Dioxide BUN Creatinine Glucose POC Glucose 138 H 143 H Calcium Magnesium Direct Bilirubin AST ALT Alkaline Phosphatase Total Creatine Kinase CK-MB (CK-2) CK-MB (CK-2) Rel Index Troponin T C-Reactive Protein Total Protein Albumin Triglycerides Ur Specific [place] Urine WBC (Auto) Miscellaneous Test 04/03/17 04/03/17 04/04/17 17:33 23:59 04:34 WBC RBC Hgb Hct MCV MCH RDW Plt Count Lymph % (Auto) [place] % (Auto) Eos % (Auto) Baso % (Auto) Lymph # Baso # Seg Neutrophils % Lymphocytes % (Manual) Monocytes % (Manual) Nucleated RBC % Seg Neutrophils # Seg Neutrophils # Man Monocytes # (Manual) PT INR Activated Clotting Time POC ABG pH 7.457 H POC ABG pCO2 29.8 L POC ABG pO2 76 L Sodium Potassium Chloride Carbon Dioxide BUN Creatinine Glucose POC Glucose 130 H 155 H Calcium Magnesium Direct Bilirubin AST ALT Alkaline Phosphatase Total Creatine Kinase CK-MB (CK-2) CK-MB (CK-2) Rel Index Troponin T C-Reactive Protein Total Protein Albumin Triglycerides Ur Specific [place] Urine WBC (Auto) Miscellaneous Test 04/04/17 04/04/17 04/04/17 05:27 12:22 18:18 WBC RBC Hgb Hct MCV MCH RDW Plt Count Lymph % (Auto) [place] % (Auto) Eos % (Auto) Baso % (Auto) Lymph # Baso # Seg Neutrophils % Lymphocytes % (Manual) Monocytes % (Manual) Nucleated RBC % Seg Neutrophils # Seg Neutrophils # Man Monocytes # (Manual) PT INR Activated Clotting Time POC ABG pH POC ABG pCO2 POC ABG pO2 Sodium Potassium Chloride Carbon Dioxide BUN Creatinine Glucose POC Glucose 164 H 146 H 130 H Calcium Magnesium Direct Bilirubin AST ALT Alkaline Phosphatase Total Creatine Kinase CK-MB (CK-2) CK-MB (CK-2) Rel Index Troponin T C-Reactive Protein Total Protein Albumin Triglycerides Ur Specific [place] Urine WBC (Auto) Miscellaneous Test 04/05/17 04/05/17 04/05/17 04:43 05:28 11:36 WBC RBC Hgb Hct MCV MCH RDW Plt Count Lymph % (Auto) [place] % (Auto) Eos % (Auto) Baso % (Auto) Lymph # Baso # Seg Neutrophils % Lymphocytes % (Manual) Monocytes % (Manual) Nucleated RBC % Seg Neutrophils # Seg Neutrophils # Man Monocytes # (Manual) PT INR Activated Clotting Time POC ABG pH 7.479 H POC ABG pCO2 33.5 L POC ABG pO2 76 L Sodium Potassium Chloride Carbon Dioxide BUN Creatinine Glucose POC Glucose 145 H 136 H Calcium Magnesium Direct Bilirubin AST ALT Alkaline Phosphatase Total Creatine Kinase CK-MB (CK-2) CK-MB (CK-2) Rel Index Troponin T C-Reactive Protein Total Protein Albumin Triglycerides Ur Specific [place] Urine WBC (Auto) Miscellaneous Test 04/05/17 04/06/17 04/06/17 17:58 00:16 05:26 WBC RBC Hgb Hct MCV MCH RDW Plt Count Lymph % (Auto) [place] % (Auto) Eos % (Auto) Baso % (Auto) Lymph # Baso # Seg Neutrophils % Lymphocytes % (Manual) Monocytes % (Manual) Nucleated RBC % Seg Neutrophils # Seg Neutrophils # Man Monocytes # (Manual) PT INR Activated Clotting Time POC ABG pH POC ABG pCO2 POC ABG pO2 Sodium Potassium Chloride Carbon Dioxide BUN Creatinine Glucose POC Glucose 130 H 159 H 146 H Calcium Magnesium Direct Bilirubin AST ALT Alkaline Phosphatase Total Creatine Kinase CK-MB (CK-2) CK-MB (CK-2) Rel Index Troponin T C-Reactive Protein Total Protein Albumin Triglycerides Ur Specific [place] Urine WBC (Auto) Miscellaneous Test 04/06/17 04/06/17 04/07/17 13:11 16:54 11:45 WBC RBC Hgb Hct MCV MCH RDW Plt Count Lymph % (Auto) [place] % (Auto) Eos % (Auto) Baso % (Auto) Lymph # Baso # Seg Neutrophils % Lymphocytes % (Manual) Monocytes % (Manual) Nucleated RBC % Seg Neutrophils # Seg Neutrophils # Man Monocytes # (Manual) PT INR Activated Clotting Time POC ABG pH 7.517 H POC ABG pCO2 32.1 L POC ABG pO2 Sodium Potassium Chloride Carbon Dioxide BUN Creatinine Glucose POC Glucose 132 H 123 H Calcium Magnesium Direct Bilirubin AST ALT Alkaline Phosphatase Total Creatine Kinase CK-MB (CK-2) CK-MB (CK-2) Rel Index Troponin T C-Reactive Protein Total Protein Albumin Triglycerides Ur Specific [place] Urine WBC (Auto) Miscellaneous Test 04/07/17 04/07/17 04/07/17 12:51 17:40 23:55 WBC RBC Hgb Hct MCV MCH RDW Plt Count Lymph % (Auto) [place] % (Auto) Eos % (Auto) Baso % (Auto) Lymph # Baso # Seg Neutrophils % Lymphocytes % (Manual) Monocytes % (Manual) Nucleated RBC % Seg Neutrophils # Seg Neutrophils # Man Monocytes # (Manual) PT INR Activated Clotting Time POC ABG pH POC ABG pCO2 POC ABG pO2 Sodium Potassium Chloride Carbon Dioxide BUN Creatinine Glucose POC Glucose 138 H 154 H 143 H Calcium Magnesium Direct Bilirubin AST ALT Alkaline Phosphatase Total Creatine Kinase CK-MB (CK-2) CK-MB (CK-2) Rel Index Troponin T C-Reactive Protein Total Protein Albumin Triglycerides Ur Specific [place] Urine WBC (Auto) Miscellaneous Test 04/08/17 04/08/17 04/08/17 05:27 11:14 17:44 WBC RBC Hgb Hct MCV MCH RDW Plt Count Lymph % (Auto) [place] % (Auto) Eos % (Auto) Baso % (Auto) Lymph # Baso # Seg Neutrophils % Lymphocytes % (Manual) Monocytes % (Manual) Nucleated RBC % Seg Neutrophils # Seg Neutrophils # Man Monocytes # (Manual) PT INR Activated Clotting Time POC ABG pH POC ABG pCO2 POC ABG pO2 Sodium Potassium Chloride Carbon Dioxide BUN Creatinine Glucose POC Glucose 142 H 153 H 129 H Calcium Magnesium Direct Bilirubin AST ALT Alkaline Phosphatase Total Creatine Kinase CK-MB (CK-2) CK-MB (CK-2) Rel Index Troponin T C-Reactive Protein Total Protein Albumin Triglycerides Ur Specific [place] Urine WBC (Auto) Miscellaneous Test 04/09/17 04/09/17 04/09/17 08:20 11:21 17:37 WBC RBC Hgb Hct MCV MCH RDW Plt Count Lymph % (Auto) [place] % (Auto) Eos % (Auto) Baso % (Auto) Lymph # Baso # Seg Neutrophils % Lymphocytes % (Manual) Monocytes % (Manual) Nucleated RBC % Seg Neutrophils # Seg Neutrophils # Man Monocytes # (Manual) PT INR Activated Clotting Time POC ABG pH POC ABG pCO2 POC ABG pO2 Sodium 147 H Potassium Chloride 108.8 H Carbon Dioxide BUN 39 H Creatinine 0.5 L Glucose 138 H POC Glucose 152 H 109 H Calcium Magnesium Direct Bilirubin AST ALT Alkaline Phosphatase Total Creatine Kinase CK-MB (CK-2) CK-MB (CK-2) Rel Index Troponin T C-Reactive Protein Total Protein Albumin Triglycerides Ur Specific [place] Urine WBC (Auto) Miscellaneous Test 04/10/17 04/10/17 04/10/17 00:13 04:16 04:16 WBC RBC Hgb 11.5 L Hct MCV 96 H MCH RDW Plt Count 103 L Lymph % (Auto) 11.1 L [place] % (Auto) Eos % (Auto) Baso % (Auto) Lymph # Baso # Seg Neutrophils % 81.5 H Lymphocytes % (Manual) Monocytes % (Manual) Nucleated RBC % Seg Neutrophils # 8.8 H Seg Neutrophils # Man Monocytes # (Manual) PT INR Activated Clotting Time POC ABG pH POC ABG pCO2 POC ABG pO2 Sodium 148 H Potassium Chloride 109.0 H Carbon Dioxide BUN 36 H Creatinine 0.5 L Glucose 131 H POC Glucose 127 H Calcium 8.1 L Magnesium 2.40 H Direct Bilirubin AST 206 H ALT 228 H Alkaline Phosphatase 178 H Total Creatine Kinase CK-MB (CK-2) CK-MB (CK-2) Rel Index Troponin T C-Reactive Protein Total Protein Albumin 2.8 L Triglycerides Ur Specific [place] Urine WBC (Auto) Miscellaneous Test 04/10/17 04/10/17 04/10/17 06:01 11:57 18:27 WBC RBC Hgb Hct MCV MCH RDW Plt Count Lymph % (Auto) [place] % (Auto) Eos % (Auto) Baso % (Auto) Lymph # Baso # Seg Neutrophils % Lymphocytes % (Manual) Monocytes % (Manual) Nucleated RBC % Seg Neutrophils # Seg Neutrophils # Man Monocytes # (Manual) PT INR Activated Clotting Time POC ABG pH POC ABG pCO2 POC ABG pO2 Sodium Potassium Chloride Carbon Dioxide BUN Creatinine Glucose POC Glucose 108 H 154 H 130 H Calcium Magnesium Direct Bilirubin AST ALT Alkaline Phosphatase Total Creatine Kinase CK-MB (CK-2) CK-MB (CK-2) Rel Index Troponin T C-Reactive Protein Total Protein Albumin Triglycerides Ur Specific [place] Urine WBC (Auto) Miscellaneous Test 04/11/17 04/11/17 04/12/17 12:25 17:10 00:22 WBC RBC Hgb Hct MCV MCH RDW Plt Count Lymph % (Auto) [place] % (Auto) Eos % (Auto) Baso % (Auto) Lymph # Baso # Seg Neutrophils % Lymphocytes % (Manual) Monocytes % (Manual) Nucleated RBC % Seg Neutrophils # Seg Neutrophils # Man Monocytes # (Manual) PT INR Activated Clotting Time POC ABG pH POC ABG pCO2 POC ABG pO2 Sodium Potassium Chloride Carbon Dioxide BUN Creatinine Glucose POC Glucose 107 H 129 H 128 H Calcium Magnesium Direct Bilirubin AST ALT Alkaline Phosphatase Total Creatine Kinase CK-MB (CK-2) CK-MB (CK-2) Rel Index Troponin T C-Reactive Protein Total Protein Albumin Triglycerides Ur Specific [place] Urine WBC (Auto) Miscellaneous Test 04/12/17 04/12/17 04/12/17 05:00 11:57 17:47 WBC RBC Hgb Hct MCV MCH RDW Plt Count Lymph % (Auto) [place] % (Auto) Eos % (Auto) Baso % (Auto) Lymph # Baso # Seg Neutrophils % Lymphocytes % (Manual) Monocytes % (Manual) Nucleated RBC % Seg Neutrophils # Seg Neutrophils # Man Monocytes # (Manual) PT INR Activated Clotting Time POC ABG pH POC ABG pCO2 POC ABG pO2 Sodium Potassium Chloride Carbon Dioxide BUN Creatinine Glucose POC Glucose 140 H 142 H Calcium Magnesium Direct Bilirubin AST 158 H ALT 184 H Alkaline Phosphatase 170 H Total Creatine Kinase CK-MB (CK-2) CK-MB (CK-2) Rel Index Troponin T C-Reactive Protein Total Protein Albumin 2.8 L Triglycerides Ur Specific [place] Urine WBC (Auto) Miscellaneous Test 04/12/17 04/12/17 04/13/17 21:36 21:36 01:37 WBC RBC Hgb Hct MCV MCH RDW Plt Count Lymph % (Auto) [place] % (Auto) Eos % (Auto) Baso % (Auto) Lymph # Baso # Seg Neutrophils % Lymphocytes % (Manual) Monocytes % (Manual) Nucleated RBC % Seg Neutrophils # Seg Neutrophils # Man Monocytes # (Manual) PT INR Activated Clotting Time POC ABG pH POC ABG pCO2 POC ABG pO2 Sodium Potassium Chloride Carbon Dioxide BUN Creatinine Glucose POC Glucose 126 H Calcium Magnesium Direct Bilirubin AST ALT Alkaline Phosphatase Total Creatine Kinase 1404 H CK-MB (CK-2) 8.0 H CK-MB (CK-2) Rel Index Troponin T 0.767 H* C-Reactive Protein Total Protein Albumin Triglycerides Ur Specific [place] Urine WBC (Auto) Miscellaneous Test 04/13/17 04/13/17 04/13/17 04:45 04:52 12:17 WBC RBC Hgb Hct MCV MCH RDW Plt Count Lymph % (Auto) [place] % (Auto) Eos % (Auto) Baso % (Auto) Lymph # Baso # Seg Neutrophils % Lymphocytes % (Manual) Monocytes % (Manual) Nucleated RBC % Seg Neutrophils # Seg Neutrophils # Man Monocytes # (Manual) PT INR Activated Clotting Time POC ABG pH POC ABG pCO2 POC ABG pO2 Sodium 148 H Potassium Chloride 112.8 H Carbon Dioxide BUN 33 H Creatinine 0.4 L Glucose 121 H POC Glucose 126 H 149 H Calcium Magnesium Direct Bilirubin AST 160 H ALT 189 H Alkaline Phosphatase 166 H Total Creatine Kinase CK-MB (CK-2) CK-MB (CK-2) Rel Index Troponin T C-Reactive Protein Total Protein Albumin 2.6 L Triglycerides Ur Specific [place] Urine WBC (Auto) Miscellaneous Test 04/13/17 04/14/17 04/14/17 17:45 00:20 00:45 WBC RBC Hgb Hct MCV MCH RDW Plt Count Lymph % (Auto) [place] % (Auto) Eos % (Auto) Baso % (Auto) Lymph # Baso # Seg Neutrophils % Lymphocytes % (Manual) Monocytes % (Manual) Nucleated RBC % Seg Neutrophils # Seg Neutrophils # Man Monocytes # (Manual) PT INR Activated Clotting Time POC ABG pH POC ABG pCO2 POC ABG pO2 Sodium Potassium Chloride Carbon Dioxide BUN Creatinine Glucose POC Glucose 130 H 144 H 144 H Calcium Magnesium Direct Bilirubin AST ALT Alkaline Phosphatase Total Creatine Kinase CK-MB (CK-2) CK-MB (CK-2) Rel Index Troponin T C-Reactive Protein Total Protein Albumin Triglycerides Ur Specific [place] Urine WBC (Auto) Miscellaneous Test 04/14/17 04/14/17 04/14/17 05:40 11:06 11:31 WBC RBC Hgb Hct MCV MCH RDW Plt Count Lymph % (Auto) [place] % (Auto) Eos % (Auto) Baso % (Auto) Lymph # Baso # Seg Neutrophils % Lymphocytes % (Manual) Monocytes % (Manual) Nucleated RBC % Seg Neutrophils # Seg Neutrophils # Man Monocytes # (Manual) PT INR Activated Clotting Time POC ABG pH POC ABG pCO2 POC ABG pO2 Sodium Potassium Chloride Carbon Dioxide BUN Creatinine Glucose POC Glucose 139 H 123 H Calcium Magnesium Direct Bilirubin AST ALT Alkaline Phosphatase Total Creatine Kinase CK-MB (CK-2) CK-MB (CK-2) Rel Index Troponin T C-Reactive Protein Total Protein Albumin Triglycerides Ur Specific [place] 1.033 H Urine WBC (Auto) > 182.0 H Miscellaneous Test 04/14/17 04/14/17 04/15/17 18:00 23:52 05:15 WBC 12.5 H RBC 3.38 L Hgb 10.6 L Hct 32.7 L MCV 97 H MCH RDW Plt Count 107 L Lymph % (Auto) 8.7 L [place] % (Auto) Eos % (Auto) Baso % (Auto) Lymph # 1.1 L Baso # Seg Neutrophils % 86.1 H Lymphocytes % (Manual) Monocytes % (Manual) Nucleated RBC % Seg Neutrophils # 10.7 H Seg Neutrophils # Man Monocytes # (Manual) PT INR Activated Clotting Time POC ABG pH POC ABG pCO2 POC ABG pO2 Sodium Potassium Chloride Carbon Dioxide BUN Creatinine Glucose POC Glucose 133 H 133 H Calcium Magnesium Direct Bilirubin AST ALT Alkaline Phosphatase Total Creatine Kinase CK-MB (CK-2) CK-MB (CK-2) Rel Index Troponin T C-Reactive Protein Total Protein Albumin Triglycerides Ur Specific [place] Urine WBC (Auto) Miscellaneous Test 04/15/17 04/15/17 04/15/17 05:15 05:25 11:50 WBC RBC Hgb Hct MCV MCH RDW Plt Count Lymph % (Auto) [place] % (Auto) Eos % (Auto) Baso % (Auto) Lymph # Baso # Seg Neutrophils % Lymphocytes % (Manual) Monocytes % (Manual) Nucleated RBC % Seg Neutrophils # Seg Neutrophils # Man Monocytes # (Manual) PT INR Activated Clotting Time POC ABG pH POC ABG pCO2 POC ABG pO2 Sodium 149 H Potassium 3.5 L Chloride 114.1 H Carbon Dioxide 21 L BUN 29 H Creatinine 0.4 L Glucose 128 H POC Glucose 133 H 107 H Calcium 8.3 L Magnesium Direct Bilirubin 0.4 H AST 149 H ALT 182 H Alkaline Phosphatase 143 H Total Creatine Kinase CK-MB (CK-2) CK-MB (CK-2) Rel Index Troponin T C-Reactive Protein Total Protein Albumin 2.5 L Triglycerides Ur Specific [place] Urine WBC (Auto) Miscellaneous Test 04/15/17 04/16/17 04/16/17 16:55 00:02 03:17 WBC RBC 3.39 L Hgb 10.5 L Hct 32.4 L MCV 96 H MCH RDW Plt Count 106 L Lymph % (Auto) 6.7 L [place] % (Auto) Eos % (Auto) Baso % (Auto) Lymph # 0.6 L Baso # Seg Neutrophils % 86.8 H Lymphocytes % (Manual) Monocytes % (Manual) Nucleated RBC % Seg Neutrophils # 8.2 H Seg Neutrophils # Man Monocytes # (Manual) PT INR Activated Clotting Time POC ABG pH POC ABG pCO2 POC ABG pO2 Sodium Potassium Chloride Carbon Dioxide BUN Creatinine Glucose POC Glucose 146 H 148 H Calcium Magnesium Direct Bilirubin AST ALT Alkaline Phosphatase Total Creatine Kinase CK-MB (CK-2) CK-MB (CK-2) Rel Index Troponin T C-Reactive Protein Total Protein Albumin Triglycerides Ur Specific [place] Urine WBC (Auto) Miscellaneous Test 04/16/17 04/16/17 04/16/17 03:17 05:19 11:13 WBC RBC Hgb Hct MCV MCH RDW Plt Count Lymph % (Auto) [place] % (Auto) Eos % (Auto) Baso % (Auto) Lymph # Baso # Seg Neutrophils % Lymphocytes % (Manual) Monocytes % (Manual) Nucleated RBC % Seg Neutrophils # Seg Neutrophils # Man Monocytes # (Manual) PT INR Activated Clotting Time POC ABG pH POC ABG pCO2 POC ABG pO2 Sodium 149 H Potassium Chloride 111.1 H Carbon Dioxide 20 L BUN 27 H Creatinine 0.3 L Glucose 156 H POC Glucose 171 H 169 H Calcium 8.3 L Magnesium Direct Bilirubin AST ALT Alkaline Phosphatase Total Creatine Kinase CK-MB (CK-2) CK-MB (CK-2) Rel Index Troponin T C-Reactive Protein Total Protein Albumin Triglycerides Ur Specific [place] Urine WBC (Auto) Miscellaneous Test 04/16/17 04/17/17 04/17/17 17:03 00:00 05:09 WBC RBC Hgb Hct MCV MCH RDW Plt Count Lymph % (Auto) [place] % (Auto) Eos % (Auto) Baso % (Auto) Lymph # Baso # Seg Neutrophils % Lymphocytes % (Manual) Monocytes % (Manual) Nucleated RBC % Seg Neutrophils # Seg Neutrophils # Man Monocytes # (Manual) PT INR Activated Clotting Time POC ABG pH POC ABG pCO2 POC ABG pO2 Sodium Potassium Chloride Carbon Dioxide BUN Creatinine Glucose POC Glucose 151 H 165 H 145 H Calcium Magnesium Direct Bilirubin AST ALT Alkaline Phosphatase Total Creatine Kinase CK-MB (CK-2) CK-MB (CK-2) Rel Index Troponin T C-Reactive Protein Total Protein Albumin Triglycerides Ur Specific [place] Urine WBC (Auto) Miscellaneous Test 04/17/17 04/17/17 04/18/17 11:38 17:47 00:01 WBC RBC Hgb Hct MCV MCH RDW Plt Count Lymph % (Auto) [place] % (Auto) Eos % (Auto) Baso % (Auto) Lymph # Baso # Seg Neutrophils % Lymphocytes % (Manual) Monocytes % (Manual) Nucleated RBC % Seg Neutrophils # Seg Neutrophils # Man Monocytes # (Manual) PT INR Activated Clotting Time POC ABG pH POC ABG pCO2 POC ABG pO2 Sodium Potassium Chloride Carbon Dioxide BUN Creatinine Glucose POC Glucose 170 H 161 H 131 H Calcium Magnesium Direct Bilirubin AST ALT Alkaline Phosphatase Total Creatine Kinase CK-MB (CK-2) CK-MB (CK-2) Rel Index Troponin T C-Reactive Protein Total Protein Albumin Triglycerides Ur Specific [place] Urine WBC (Auto) Miscellaneous Test 04/18/17 04/18/17 04/18/17 03:55 03:55 05:30 WBC RBC 3.05 L Hgb 9.8 L Hct 29.0 L MCV 95 H MCH RDW Plt Count 113 L Lymph % (Auto) [place] % (Auto) Eos % (Auto) 5.3 H Baso % (Auto) Lymph # Baso # Seg Neutrophils % 71.5 H Lymphocytes % (Manual) Monocytes % (Manual) Nucleated RBC % Seg Neutrophils # Seg Neutrophils # Man Monocytes # (Manual) PT INR Activated Clotting Time POC ABG pH 7.460 H POC ABG pCO2 30.8 L POC ABG pO2 129 H Sodium Potassium Chloride Carbon Dioxide 21 L BUN 25 H Creatinine 0.4 L Glucose 123 H POC Glucose Calcium 8.3 L Magnesium Direct Bilirubin AST ALT Alkaline Phosphatase Total Creatine Kinase CK-MB (CK-2) CK-MB (CK-2) Rel Index Troponin T C-Reactive Protein Total Protein Albumin Triglycerides Ur Specific [place] Urine WBC (Auto) Miscellaneous Test 04/18/17 04/18/17 04/19/17 17:10 23:40 04:36 WBC RBC 3.21 L Hgb 10.2 L Hct 30.4 L MCV 95 H MCH RDW Plt Count 131 L Lymph % (Auto) 12.1 L [place] % (Auto) Eos % (Auto) 4.7 H Baso % (Auto) 2.4 H Lymph # 0.9 L Baso # 0.2 H Seg Neutrophils % 75.0 H Lymphocytes % (Manual) Monocytes % (Manual) Nucleated RBC % Seg Neutrophils # Seg Neutrophils # Man Monocytes # (Manual) PT INR Activated Clotting Time POC ABG pH POC ABG pCO2 POC ABG pO2 Sodium Potassium Chloride Carbon Dioxide BUN Creatinine Glucose POC Glucose 135 H 157 H Calcium Magnesium Direct Bilirubin AST ALT Alkaline Phosphatase Total Creatine Kinase CK-MB (CK-2) CK-MB (CK-2) Rel Index Troponin T C-Reactive Protein Total Protein Albumin Triglycerides Ur Specific [place] Urine WBC (Auto) Miscellaneous Test 04/19/17 04/19/17 04/19/17 04:36 05:12 06:50 WBC RBC Hgb Hct MCV MCH RDW Plt Count Lymph % (Auto) [place] % (Auto) Eos % (Auto) Baso % (Auto) Lymph # Baso # Seg Neutrophils % Lymphocytes % (Manual) Monocytes % (Manual) Nucleated RBC % Seg Neutrophils # Seg Neutrophils # Man Monocytes # (Manual) PT INR Activated Clotting Time POC ABG pH 7.516 H POC ABG pCO2 28.0 L POC ABG pO2 Sodium Potassium Chloride Carbon Dioxide 21 L BUN 23 H Creatinine 0.2 L Glucose 137 H POC Glucose 131 H Calcium 7.9 L Magnesium Direct Bilirubin AST ALT Alkaline Phosphatase Total Creatine Kinase CK-MB (CK-2) CK-MB (CK-2) Rel Index Troponin T C-Reactive Protein Total Protein Albumin Triglycerides Ur Specific [place] Urine WBC (Auto) Miscellaneous Test 04/19/17 04/19/17 04/20/17 12:36 17:42 00:12 WBC RBC Hgb Hct MCV MCH RDW Plt Count Lymph % (Auto) [place] % (Auto) Eos % (Auto) Baso % (Auto) Lymph # Baso # Seg Neutrophils % Lymphocytes % (Manual) Monocytes % (Manual) Nucleated RBC % Seg Neutrophils # Seg Neutrophils # Man Monocytes # (Manual) PT INR Activated Clotting Time POC ABG pH POC ABG pCO2 POC ABG pO2 Sodium Potassium Chloride Carbon Dioxide BUN Creatinine Glucose POC Glucose 128 H 140 H 132 H Calcium Magnesium Direct Bilirubin AST ALT Alkaline Phosphatase Total Creatine Kinase CK-MB (CK-2) CK-MB (CK-2) Rel Index Troponin T C-Reactive Protein Total Protein Albumin Triglycerides Ur Specific [place] Urine WBC (Auto) Miscellaneous Test 04/20/17 04/20/17 04/20/17 03:35 03:35 05:10 WBC RBC 3.34 L Hgb 10.4 L Hct 31.6 L MCV 95 H MCH RDW Plt Count Lymph % (Auto) 12.9 L [place] % (Auto) Eos % (Auto) Baso % (Auto) Lymph # Baso # Seg Neutrophils % 77.3 H Lymphocytes % (Manual) Monocytes % (Manual) Nucleated RBC % Seg Neutrophils # Seg Neutrophils # Man Monocytes # (Manual) PT INR Activated Clotting Time POC ABG pH POC ABG pCO2 POC ABG pO2 Sodium Potassium Chloride Carbon Dioxide BUN Creatinine 0.3 L Glucose 155 H POC Glucose 135 H Calcium 7.8 L Magnesium Direct Bilirubin AST ALT Alkaline Phosphatase Total Creatine Kinase CK-MB (CK-2) CK-MB (CK-2) Rel Index Troponin T C-Reactive Protein Total Protein Albumin Triglycerides Ur Specific [place] Urine WBC (Auto) Miscellaneous Test 04/20/17 04/20/17 04/21/17 12:49 18:21 00:05 WBC RBC Hgb Hct MCV MCH RDW Plt Count Lymph % (Auto) [place] % (Auto) Eos % (Auto) Baso % (Auto) Lymph # Baso # Seg Neutrophils % Lymphocytes % (Manual) Monocytes % (Manual) Nucleated RBC % Seg Neutrophils # Seg Neutrophils # Man Monocytes # (Manual) PT INR Activated Clotting Time POC ABG pH POC ABG pCO2 POC ABG pO2 Sodium Potassium Chloride Carbon Dioxide BUN Creatinine Glucose POC Glucose 155 H 165 H 141 H Calcium Magnesium Direct Bilirubin AST ALT Alkaline Phosphatase Total Creatine Kinase CK-MB (CK-2) CK-MB (CK-2) Rel Index Troponin T C-Reactive Protein Total Protein Albumin Triglycerides Ur Specific [place] Urine WBC (Auto) Miscellaneous Test 04/21/17 04/21/17 04/21/17 06:00 12:11 17:04 WBC RBC Hgb Hct MCV MCH RDW Plt Count Lymph % (Auto) [place] % (Auto) Eos % (Auto) Baso % (Auto) Lymph # Baso # Seg Neutrophils % Lymphocytes % (Manual) Monocytes % (Manual) Nucleated RBC % Seg Neutrophils # Seg Neutrophils # Man Monocytes # (Manual) PT INR Activated Clotting Time POC ABG pH POC ABG pCO2 POC ABG pO2 Sodium Potassium Chloride Carbon Dioxide BUN Creatinine Glucose POC Glucose 152 H 165 H 156 H Calcium Magnesium Direct Bilirubin AST ALT Alkaline Phosphatase Total Creatine Kinase CK-MB (CK-2) CK-MB (CK-2) Rel Index Troponin T C-Reactive Protein Total Protein Albumin Triglycerides Ur Specific [place] Urine WBC (Auto) Miscellaneous Test 04/21/17 04/21/17 04/22/17 22:00 23:59 05:49 WBC RBC Hgb Hct MCV MCH RDW Plt Count Lymph % (Auto) [place] % (Auto) Eos % (Auto) Baso % (Auto) Lymph # Baso # Seg Neutrophils % Lymphocytes % (Manual) Monocytes % (Manual) Nucleated RBC % Seg Neutrophils # Seg Neutrophils # Man Monocytes # (Manual) PT INR Activated Clotting Time POC ABG pH POC ABG pCO2 POC ABG pO2 Sodium Potassium Chloride Carbon Dioxide BUN Creatinine Glucose POC Glucose 166 H 173 H Calcium Magnesium Direct Bilirubin AST ALT Alkaline Phosphatase Total Creatine Kinase CK-MB (CK-2) CK-MB (CK-2) Rel Index Troponin T C-Reactive Protein Total Protein Albumin Triglycerides Ur Specific [place] Urine WBC (Auto) 10.0 H Miscellaneous Test 04/22/17 04/22/17 04/23/17 11:11 18:04 00:37 WBC RBC Hgb Hct MCV MCH RDW Plt Count Lymph % (Auto) [place] % (Auto) Eos % (Auto) Baso % (Auto) Lymph # Baso # Seg Neutrophils % Lymphocytes % (Manual) Monocytes % (Manual) Nucleated RBC % Seg Neutrophils # Seg Neutrophils # Man Monocytes # (Manual) PT INR Activated Clotting Time POC ABG pH POC ABG pCO2 POC ABG pO2 Sodium Potassium Chloride Carbon Dioxide BUN Creatinine Glucose POC Glucose 172 H 140 H 135 H Calcium Magnesium Direct Bilirubin AST ALT Alkaline Phosphatase Total Creatine Kinase CK-MB (CK-2) CK-MB (CK-2) Rel Index Troponin T C-Reactive Protein Total Protein Albumin Triglycerides Ur Specific [place] Urine WBC (Auto) Miscellaneous Test 04/23/17 04/23/17 04/23/17 05:33 06:20 11:10 WBC RBC 3.19 L Hgb 9.9 L Hct 30.0 L MCV MCH RDW Plt Count Lymph % (Auto) 8.0 L [place] % (Auto) Eos % (Auto) Baso % (Auto) Lymph # 0.8 L Baso # Seg Neutrophils % 84.5 H Lymphocytes % (Manual) Monocytes % (Manual) Nucleated RBC % Seg Neutrophils # 8.2 H Seg Neutrophils # Man Monocytes # (Manual) PT INR Activated Clotting Time POC ABG pH POC ABG pCO2 POC ABG pO2 Sodium Potassium Chloride Carbon Dioxide BUN Creatinine Glucose POC Glucose 134 H 134 H Calcium Magnesium Direct Bilirubin AST ALT Alkaline Phosphatase Total Creatine Kinase CK-MB (CK-2) CK-MB (CK-2) Rel Index Troponin T C-Reactive Protein Total Protein Albumin Triglycerides Ur Specific [place] Urine WBC (Auto) Miscellaneous Test 04/23/17 04/24/17 04/24/17 17:26 00:53 06:46 WBC RBC Hgb Hct MCV MCH RDW Plt Count Lymph % (Auto) [place] % (Auto) Eos % (Auto) Baso % (Auto) Lymph # Baso # Seg Neutrophils % Lymphocytes % (Manual) Monocytes % (Manual) Nucleated RBC % Seg Neutrophils # Seg Neutrophils # Man Monocytes # (Manual) PT INR Activated Clotting Time POC ABG pH POC ABG pCO2 POC ABG pO2 Sodium Potassium Chloride Carbon Dioxide BUN Creatinine Glucose POC Glucose 164 H 146 H 125 H Calcium Magnesium Direct Bilirubin AST ALT Alkaline Phosphatase Total Creatine Kinase CK-MB (CK-2) CK-MB (CK-2) Rel Index Troponin T C-Reactive Protein Total Protein Albumin Triglycerides Ur Specific [place] Urine WBC (Auto) Miscellaneous Test 04/24/17 04/24/17 04/24/17 11:55 17:50 23:36 WBC RBC Hgb Hct MCV MCH RDW Plt Count Lymph % (Auto) [place] % (Auto) Eos % (Auto) Baso % (Auto) Lymph # Baso # Seg Neutrophils % Lymphocytes % (Manual) Monocytes % (Manual) Nucleated RBC % Seg Neutrophils # Seg Neutrophils # Man Monocytes # (Manual) PT INR Activated Clotting Time POC ABG pH POC ABG pCO2 POC ABG pO2 Sodium Potassium Chloride Carbon Dioxide BUN Creatinine Glucose POC Glucose 156 H 146 H 131 H Calcium Magnesium Direct Bilirubin AST ALT Alkaline Phosphatase Total Creatine Kinase CK-MB (CK-2) CK-MB (CK-2) Rel Index Troponin T C-Reactive Protein Total Protein Albumin Triglycerides Ur Specific [place] Urine WBC (Auto) Miscellaneous Test 04/25/17 04/25/17 04/25/17 04:51 05:16 07:07 WBC RBC Hgb Hct MCV MCH RDW Plt Count Lymph % (Auto) [place] % (Auto) Eos % (Auto) Baso % (Auto) Lymph # Baso # Seg Neutrophils % Lymphocytes % (Manual) Monocytes % (Manual) Nucleated RBC % Seg Neutrophils # Seg Neutrophils # Man Monocytes # (Manual) PT INR Activated Clotting Time POC ABG pH POC ABG pCO2 POC ABG pO2 Sodium Potassium Chloride Carbon Dioxide BUN Creatinine Glucose POC Glucose 139 H Calcium Magnesium Direct Bilirubin AST 105 H ALT 204 H Alkaline Phosphatase 189 H Total Creatine Kinase CK-MB (CK-2) CK-MB (CK-2) Rel Index Troponin T C-Reactive Protein Total Protein Albumin 2.4 L Triglycerides Ur Specific [place] Urine WBC (Auto) Miscellaneous Test Flexitest 1 H 04/25/17 04/25/17 04/25/17 12:29 17:23 23:32 WBC RBC Hgb Hct MCV MCH RDW Plt Count Lymph % (Auto) [place] % (Auto) Eos % (Auto) Baso % (Auto) Lymph # Baso # Seg Neutrophils % Lymphocytes % (Manual) Monocytes % (Manual) Nucleated RBC % Seg Neutrophils # Seg Neutrophils # Man Monocytes # (Manual) PT INR Activated Clotting Time POC ABG pH POC ABG pCO2 POC ABG pO2 Sodium Potassium Chloride Carbon Dioxide BUN Creatinine Glucose POC Glucose 132 H 133 H 128 H Calcium Magnesium Direct Bilirubin AST ALT Alkaline Phosphatase Total Creatine Kinase CK-MB (CK-2) CK-MB (CK-2) Rel Index Troponin T C-Reactive Protein Total Protein Albumin Triglycerides Ur Specific [place] Urine WBC (Auto) Miscellaneous Test 04/26/17 04/26/17 04/26/17 05:24 11:28 17:09 WBC RBC Hgb Hct MCV MCH RDW Plt Count Lymph % (Auto) [place] % (Auto) Eos % (Auto) Baso % (Auto) Lymph # Baso # Seg Neutrophils % Lymphocytes % (Manual) Monocytes % (Manual) Nucleated RBC % Seg Neutrophils # Seg Neutrophils # Man Monocytes # (Manual) PT INR Activated Clotting Time POC ABG pH POC ABG pCO2 POC ABG pO2 Sodium Potassium Chloride Carbon Dioxide BUN Creatinine Glucose POC Glucose 132 H 146 H 141 H Calcium Magnesium Direct Bilirubin AST ALT Alkaline Phosphatase Total Creatine Kinase CK-MB (CK-2) CK-MB (CK-2) Rel Index Troponin T C-Reactive Protein Total Protein Albumin Triglycerides Ur Specific [place] Urine WBC (Auto) Miscellaneous Test 04/26/17 04/27/17 04/27/17 23:52 05:40 05:40 WBC RBC 3.22 L Hgb 10.0 L Hct 29.9 L MCV MCH RDW Plt Count Lymph % (Auto) [place] % (Auto) Eos % (Auto) Baso % (Auto) Lymph # Baso # Seg Neutrophils % 76.6 H Lymphocytes % (Manual) Monocytes % (Manual) Nucleated RBC % Seg Neutrophils # Seg Neutrophils # Man Monocytes # (Manual) PT INR Activated Clotting Time POC ABG pH POC ABG pCO2 POC ABG pO2 Sodium Potassium Chloride Carbon Dioxide BUN Creatinine Glucose POC Glucose 140 H Calcium Magnesium Direct Bilirubin AST 66 H ALT 137 H Alkaline Phosphatase 169 H Total Creatine Kinase CK-MB (CK-2) CK-MB (CK-2) Rel Index Troponin T C-Reactive Protein Total Protein 6.2 L Albumin 2.6 L Triglycerides Ur Specific [place] Urine WBC (Auto) Miscellaneous Test 04/27/17 04/27/17 04/27/17 05:40 06:10 11:13 WBC RBC Hgb Hct MCV MCH RDW Plt Count Lymph % (Auto) [place] % (Auto) Eos % (Auto) Baso % (Auto) Lymph # Baso # Seg Neutrophils % Lymphocytes % (Manual) Monocytes % (Manual) Nucleated RBC % Seg Neutrophils # Seg Neutrophils # Man Monocytes # (Manual) PT INR Activated Clotting Time POC ABG pH POC ABG pCO2 POC ABG pO2 Sodium Potassium Chloride Carbon Dioxide BUN Creatinine 0.2 L Glucose 139 H POC Glucose 130 H 151 H Calcium Magnesium Direct Bilirubin AST ALT Alkaline Phosphatase Total Creatine Kinase CK-MB (CK-2) CK-MB (CK-2) Rel Index Troponin T C-Reactive Protein Total Protein Albumin Triglycerides Ur Specific [place] Urine WBC (Auto) Miscellaneous Test 04/27/17 04/27/17 04/28/17 17:37 23:19 05:24 WBC RBC Hgb Hct MCV MCH RDW Plt Count Lymph % (Auto) [place] % (Auto) Eos % (Auto) Baso % (Auto) Lymph # Baso # Seg Neutrophils % Lymphocytes % (Manual) Monocytes % (Manual) Nucleated RBC % Seg Neutrophils # Seg Neutrophils # Man Monocytes # (Manual) PT INR Activated Clotting Time POC ABG pH POC ABG pCO2 POC ABG pO2 Sodium Potassium Chloride Carbon Dioxide BUN Creatinine Glucose POC Glucose 159 H 130 H 132 H Calcium Magnesium Direct Bilirubin AST ALT Alkaline Phosphatase Total Creatine Kinase CK-MB (CK-2) CK-MB (CK-2) Rel Index Troponin T C-Reactive Protein Total Protein Albumin Triglycerides Ur Specific [place] Urine WBC (Auto) Miscellaneous Test 04/28/17 04/28/17 04/28/17 11:15 17:38 23:23 WBC RBC Hgb Hct MCV MCH RDW Plt Count Lymph % (Auto) [place] % (Auto) Eos % (Auto) Baso % (Auto) Lymph # Baso # Seg Neutrophils % Lymphocytes % (Manual) Monocytes % (Manual) Nucleated RBC % Seg Neutrophils # Seg Neutrophils # Man Monocytes # (Manual) PT INR Activated Clotting Time POC ABG pH POC ABG pCO2 POC ABG pO2 Sodium Potassium Chloride Carbon Dioxide BUN Creatinine Glucose POC Glucose 162 H 133 H 138 H Calcium Magnesium Direct Bilirubin AST ALT Alkaline Phosphatase Total Creatine Kinase CK-MB (CK-2) CK-MB (CK-2) Rel Index Troponin T C-Reactive Protein Total Protein Albumin Triglycerides Ur Specific [place] Urine WBC (Auto) Miscellaneous Test 04/29/17 04/29/17 04/29/17 05:15 12:55 17:21 WBC RBC Hgb Hct MCV MCH RDW Plt Count Lymph % (Auto) [place] % (Auto) Eos % (Auto) Baso % (Auto) Lymph # Baso # Seg Neutrophils % Lymphocytes % (Manual) Monocytes % (Manual) Nucleated RBC % Seg Neutrophils # Seg Neutrophils # Man Monocytes # (Manual) PT INR Activated Clotting Time POC ABG pH POC ABG pCO2 POC ABG pO2 Sodium Potassium Chloride Carbon Dioxide BUN Creatinine Glucose POC Glucose 135 H 127 H 138 H Calcium Magnesium Direct Bilirubin AST ALT Alkaline Phosphatase Total Creatine Kinase CK-MB (CK-2) CK-MB (CK-2) Rel Index Troponin T C-Reactive Protein Total Protein Albumin Triglycerides Ur Specific [place] Urine WBC (Auto) Miscellaneous Test 04/29/17 04/30/17 04/30/17 23:52 04:55 12:22 WBC RBC Hgb Hct MCV MCH RDW Plt Count Lymph % (Auto) [place] % (Auto) Eos % (Auto) Baso % (Auto) Lymph # Baso # Seg Neutrophils % Lymphocytes % (Manual) Monocytes % (Manual) Nucleated RBC % Seg Neutrophils # Seg Neutrophils # Man Monocytes # (Manual) PT INR Activated Clotting Time POC ABG pH POC ABG pCO2 POC ABG pO2 Sodium Potassium Chloride Carbon Dioxide BUN Creatinine Glucose POC Glucose 142 H 146 H 132 H Calcium Magnesium Direct Bilirubin AST ALT Alkaline Phosphatase Total Creatine Kinase CK-MB (CK-2) CK-MB (CK-2) Rel Index Troponin T C-Reactive Protein Total Protein Albumin Triglycerides Ur Specific [place] Urine WBC (Auto) Miscellaneous Test 04/30/17 04/30/17 04/30/17 14:25 17:47 18:20 WBC RBC Hgb Hct MCV MCH RDW Plt Count Lymph % (Auto) [place] % (Auto) Eos % (Auto) Baso % (Auto) Lymph # Baso # Seg Neutrophils % Lymphocytes % (Manual) Monocytes % (Manual) Nucleated RBC % Seg Neutrophils # Seg Neutrophils # Man Monocytes # (Manual) PT INR Activated Clotting Time POC ABG pH 7.551 H POC ABG pCO2 32.7 L POC ABG pO2 Sodium Potassium Chloride Carbon Dioxide BUN 21 H Creatinine 0.2 L Glucose 141 H POC Glucose 139 H Calcium Magnesium Direct Bilirubin AST ALT Alkaline Phosphatase Total Creatine Kinase CK-MB (CK-2) CK-MB (CK-2) Rel Index Troponin T C-Reactive Protein Total Protein Albumin Triglycerides Ur Specific [place] Urine WBC (Auto) Miscellaneous Test 05/01/17 05/01/17 05/01/17 01:26 05:30 05:30 WBC RBC 3.49 L Hgb 10.3 L Hct 31.9 L MCV MCH RDW Plt Count Lymph % (Auto) [place] % (Auto) 8.1 H Eos % (Auto) Baso % (Auto) Lymph # Baso # Seg Neutrophils % 71.3 H Lymphocytes % (Manual) Monocytes % (Manual) Nucleated RBC % Seg Neutrophils # Seg Neutrophils # Man Monocytes # (Manual) PT INR Activated Clotting Time POC ABG pH POC ABG pCO2 POC ABG pO2 Sodium 136 L Potassium Chloride 97.6 L Carbon Dioxide BUN Creatinine 0.2 L Glucose 123 H POC Glucose 116 H Calcium Magnesium Direct Bilirubin AST 71 H ALT 125 H Alkaline Phosphatase 158 H Total Creatine Kinase CK-MB (CK-2) CK-MB (CK-2) Rel Index Troponin T C-Reactive Protein Total Protein Albumin 2.6 L Triglycerides Ur Specific [place] Urine WBC (Auto) Miscellaneous Test 05/01/17 05/01/17 05/02/17 11:59 17:23 00:08 WBC RBC Hgb Hct MCV MCH RDW Plt Count Lymph % (Auto) [place] % (Auto) Eos % (Auto) Baso % (Auto) Lymph # Baso # Seg Neutrophils % Lymphocytes % (Manual) Monocytes % (Manual) Nucleated RBC % Seg Neutrophils # Seg Neutrophils # Man Monocytes # (Manual) PT INR Activated Clotting Time POC ABG pH POC ABG pCO2 POC ABG pO2 Sodium Potassium Chloride Carbon Dioxide BUN Creatinine Glucose POC Glucose 118 H 144 H 122 H Calcium Magnesium Direct Bilirubin AST ALT Alkaline Phosphatase Total Creatine Kinase CK-MB (CK-2) CK-MB (CK-2) Rel Index Troponin T C-Reactive Protein Total Protein Albumin Triglycerides Ur Specific [place] Urine WBC (Auto) Miscellaneous Test 05/02/17 05/02/17 05/02/17 05:50 11:21 17:48 WBC RBC Hgb Hct MCV MCH RDW Plt Count Lymph % (Auto) [place] % (Auto) Eos % (Auto) Baso % (Auto) Lymph # Baso # Seg Neutrophils % Lymphocytes % (Manual) Monocytes % (Manual) Nucleated RBC % Seg Neutrophils # Seg Neutrophils # Man Monocytes # (Manual) PT INR Activated Clotting Time POC ABG pH POC ABG pCO2 POC ABG pO2 Sodium Potassium Chloride Carbon Dioxide BUN Creatinine Glucose POC Glucose 120 H 121 H 140 H Calcium Magnesium Direct Bilirubin AST ALT Alkaline Phosphatase Total Creatine Kinase CK-MB (CK-2) CK-MB (CK-2) Rel Index Troponin T C-Reactive Protein Total Protein Albumin Triglycerides Ur Specific [place] Urine WBC (Auto) Miscellaneous Test 05/02/17 05/03/17 05/03/17 23:12 05:35 11:52 WBC RBC Hgb Hct MCV MCH RDW Plt Count Lymph % (Auto) [place] % (Auto) Eos % (Auto) Baso % (Auto) Lymph # Baso # Seg Neutrophils % Lymphocytes % (Manual) Monocytes % (Manual) Nucleated RBC % Seg Neutrophils # Seg Neutrophils # Man Monocytes # (Manual) PT INR Activated Clotting Time POC ABG pH POC ABG pCO2 POC ABG pO2 Sodium Potassium Chloride Carbon Dioxide BUN Creatinine Glucose POC Glucose 128 H 113 H 126 H Calcium Magnesium Direct Bilirubin AST ALT Alkaline Phosphatase Total Creatine Kinase CK-MB (CK-2) CK-MB (CK-2) Rel Index Troponin T C-Reactive Protein Total Protein Albumin Triglycerides Ur Specific [place] Urine WBC (Auto) Miscellaneous Test 05/03/17 05/03/17 05/04/17 17:29 23:26 04:55 WBC RBC Hgb Hct MCV MCH RDW Plt Count Lymph % (Auto) [place] % (Auto) Eos % (Auto) Baso % (Auto) Lymph # Baso # Seg Neutrophils % Lymphocytes % (Manual) Monocytes % (Manual) Nucleated RBC % Seg Neutrophils # Seg Neutrophils # Man Monocytes # (Manual) PT INR Activated Clotting Time POC ABG pH POC ABG pCO2 POC ABG pO2 Sodium Potassium Chloride Carbon Dioxide BUN Creatinine Glucose POC Glucose 141 H 129 H 126 H Calcium Magnesium Direct Bilirubin AST ALT Alkaline Phosphatase Total Creatine Kinase CK-MB (CK-2) CK-MB (CK-2) Rel Index Troponin T C-Reactive Protein Total Protein Albumin Triglycerides Ur Specific [place] Urine WBC (Auto) Miscellaneous Test 05/04/17 05/04/17 05/05/17 12:09 17:46 00:06 WBC RBC Hgb Hct MCV MCH RDW Plt Count Lymph % (Auto) [place] % (Auto) Eos % (Auto) Baso % (Auto) Lymph # Baso # Seg Neutrophils % Lymphocytes % (Manual) Monocytes % (Manual) Nucleated RBC % Seg Neutrophils # Seg Neutrophils # Man Monocytes # (Manual) PT INR Activated Clotting Time POC ABG pH POC ABG pCO2 POC ABG pO2 Sodium Potassium Chloride Carbon Dioxide BUN Creatinine Glucose POC Glucose 125 H 125 H 110 H Calcium Magnesium Direct Bilirubin AST ALT Alkaline Phosphatase Total Creatine Kinase CK-MB (CK-2) CK-MB (CK-2) Rel Index Troponin T C-Reactive Protein Total Protein Albumin Triglycerides Ur Specific [place] Urine WBC (Auto) Miscellaneous Test 05/05/17 05/05/17 05/05/17 05:48 11:41 16:19 WBC RBC Hgb Hct MCV MCH RDW Plt Count Lymph % (Auto) [place] % (Auto) Eos % (Auto) Baso % (Auto) Lymph # Baso # Seg Neutrophils % Lymphocytes % (Manual) Monocytes % (Manual) Nucleated RBC % Seg Neutrophils # Seg Neutrophils # Man Monocytes # (Manual) PT INR Activated Clotting Time POC ABG pH POC ABG pCO2 POC ABG pO2 Sodium Potassium Chloride Carbon Dioxide BUN Creatinine Glucose POC Glucose 124 H 122 H 120 H Calcium Magnesium Direct Bilirubin AST ALT Alkaline Phosphatase Total Creatine Kinase CK-MB (CK-2) CK-MB (CK-2) Rel Index Troponin T C-Reactive Protein Total Protein Albumin Triglycerides Ur Specific [place] Urine WBC (Auto) Miscellaneous Test 05/06/17 05/06/17 05/06/17 00:16 05:47 11:42 WBC RBC Hgb Hct MCV MCH RDW Plt Count Lymph % (Auto) [place] % (Auto) Eos % (Auto) Baso % (Auto) Lymph # Baso # Seg Neutrophils % Lymphocytes % (Manual) Monocytes % (Manual) Nucleated RBC % Seg Neutrophils # Seg Neutrophils # Man Monocytes # (Manual) PT INR Activated Clotting Time POC ABG pH POC ABG pCO2 POC ABG pO2 Sodium Potassium Chloride Carbon Dioxide BUN Creatinine Glucose POC Glucose 110 H 142 H 120 H Calcium Magnesium Direct Bilirubin AST ALT Alkaline Phosphatase Total Creatine Kinase CK-MB (CK-2) CK-MB (CK-2) Rel Index Troponin T C-Reactive Protein Total Protein Albumin Triglycerides Ur Specific [place] Urine WBC (Auto) Miscellaneous Test 05/06/17 05/07/17 05/07/17 17:46 00:07 05:28 WBC RBC Hgb Hct MCV MCH RDW Plt Count Lymph % (Auto) [place] % (Auto) Eos % (Auto) Baso % (Auto) Lymph # Baso # Seg Neutrophils % Lymphocytes % (Manual) Monocytes % (Manual) Nucleated RBC % Seg Neutrophils # Seg Neutrophils # Man Monocytes # (Manual) PT INR Activated Clotting Time POC ABG pH POC ABG pCO2 POC ABG pO2 Sodium Potassium Chloride Carbon Dioxide BUN Creatinine Glucose POC Glucose 127 H 145 H 124 H Calcium Magnesium Direct Bilirubin AST ALT Alkaline Phosphatase Total Creatine Kinase CK-MB (CK-2) CK-MB (CK-2) Rel Index Troponin T C-Reactive Protein Total Protein Albumin Triglycerides Ur Specific [place] Urine WBC (Auto) Miscellaneous Test 05/07/17 05/07/17 05/08/17 11:17 17:14 00:03 WBC RBC Hgb Hct MCV MCH RDW Plt Count Lymph % (Auto) [place] % (Auto) Eos % (Auto) Baso % (Auto) Lymph # Baso # Seg Neutrophils % Lymphocytes % (Manual) Monocytes % (Manual) Nucleated RBC % Seg Neutrophils # Seg Neutrophils # Man Monocytes # (Manual) PT INR Activated Clotting Time POC ABG pH POC ABG pCO2 POC ABG pO2 Sodium Potassium Chloride Carbon Dioxide BUN Creatinine Glucose POC Glucose 144 H 125 H 122 H Calcium Magnesium Direct Bilirubin AST ALT Alkaline Phosphatase Total Creatine Kinase CK-MB (CK-2) CK-MB (CK-2) Rel Index Troponin T C-Reactive Protein Total Protein Albumin Triglycerides Ur Specific [place] Urine WBC (Auto) Miscellaneous Test 05/08/17 05/08/17 05/08/17 05:43 12:07 18:02 WBC RBC Hgb Hct MCV MCH RDW Plt Count Lymph % (Auto) [place] % (Auto) Eos % (Auto) Baso % (Auto) Lymph # Baso # Seg Neutrophils % Lymphocytes % (Manual) Monocytes % (Manual) Nucleated RBC % Seg Neutrophils # Seg Neutrophils # Man Monocytes # (Manual) PT INR Activated Clotting Time POC ABG pH POC ABG pCO2 POC ABG pO2 Sodium Potassium Chloride Carbon Dioxide BUN Creatinine Glucose POC Glucose 117 H 114 H 129 H Calcium Magnesium Direct Bilirubin AST ALT Alkaline Phosphatase Total Creatine Kinase CK-MB (CK-2) CK-MB (CK-2) Rel Index Troponin T C-Reactive Protein Total Protein Albumin Triglycerides Ur Specific [place] Urine WBC (Auto) Miscellaneous Test 05/08/17 05/09/17 05/09/17 23:53 04:19 05:14 WBC RBC Hgb Hct MCV MCH RDW Plt Count Lymph % (Auto) [place] % (Auto) Eos % (Auto) Baso % (Auto) Lymph # Baso # Seg Neutrophils % Lymphocytes % (Manual) Monocytes % (Manual) Nucleated RBC % Seg Neutrophils # Seg Neutrophils # Man Monocytes # (Manual) PT INR Activated Clotting Time POC ABG pH 7.524 H POC ABG pCO2 34.7 L POC ABG pO2 107 H Sodium Potassium Chloride Carbon Dioxide BUN Creatinine Glucose POC Glucose 125 H 118 H Calcium Magnesium Direct Bilirubin AST ALT Alkaline Phosphatase Total Creatine Kinase CK-MB (CK-2) CK-MB (CK-2) Rel Index Troponin T C-Reactive Protein Total Protein Albumin Triglycerides Ur Specific [place] Urine WBC (Auto) Miscellaneous Test 05/10/17 05/11/17 05/11/17 23:54 05:48 23:50 WBC RBC Hgb Hct MCV MCH RDW Plt Count Lymph % (Auto) [place] % (Auto) Eos % (Auto) Baso % (Auto) Lymph # Baso # Seg Neutrophils % Lymphocytes % (Manual) Monocytes % (Manual) Nucleated RBC % Seg Neutrophils # Seg Neutrophils # Man Monocytes # (Manual) PT INR Activated Clotting Time POC ABG pH POC ABG pCO2 POC ABG pO2 Sodium Potassium Chloride Carbon Dioxide BUN Creatinine Glucose POC Glucose 126 H 137 H 130 H Calcium Magnesium Direct Bilirubin AST ALT Alkaline Phosphatase Total Creatine Kinase CK-MB (CK-2) CK-MB (CK-2) Rel Index Troponin T C-Reactive Protein Total Protein Albumin Triglycerides Ur Specific [place] Urine WBC (Auto) Miscellaneous Test 05/12/17 05/12/17 05/12/17 05:48 11:33 18:00 WBC RBC Hgb Hct MCV MCH RDW Plt Count Lymph % (Auto) [place] % (Auto) Eos % (Auto) Baso % (Auto) Lymph # Baso # Seg Neutrophils % Lymphocytes % (Manual) Monocytes % (Manual) Nucleated RBC % Seg Neutrophils # Seg Neutrophils # Man Monocytes # (Manual) PT INR Activated Clotting Time POC ABG pH POC ABG pCO2 POC ABG pO2 Sodium Potassium Chloride Carbon Dioxide BUN Creatinine Glucose POC Glucose 126 H 116 H 131 H Calcium Magnesium Direct Bilirubin AST ALT Alkaline Phosphatase Total Creatine Kinase CK-MB (CK-2) CK-MB (CK-2) Rel Index Troponin T C-Reactive Protein Total Protein Albumin Triglycerides Ur Specific [place] Urine WBC (Auto) Miscellaneous Test 05/14/17 05/15/17 05/15/17 11:45 11:27 17:42 WBC RBC Hgb Hct MCV MCH RDW Plt Count Lymph % (Auto) [place] % (Auto) Eos % (Auto) Baso % (Auto) Lymph # Baso # Seg Neutrophils % Lymphocytes % (Manual) Monocytes % (Manual) Nucleated RBC % Seg Neutrophils # Seg Neutrophils # Man Monocytes # (Manual) PT INR Activated Clotting Time POC ABG pH POC ABG pCO2 POC ABG pO2 Sodium Potassium Chloride Carbon Dioxide BUN Creatinine Glucose POC Glucose 123 H 129 H 125 H Calcium Magnesium Direct Bilirubin AST ALT Alkaline Phosphatase Total Creatine Kinase CK-MB (CK-2) CK-MB (CK-2) Rel Index Troponin T C-Reactive Protein Total Protein Albumin Triglycerides Ur Specific [place] Urine WBC (Auto) Miscellaneous Test 05/16/17 05/16/17 05/17/17 00:29 06:50 03:45 WBC RBC Hgb 11.7 L Hct 34.8 L MCV MCH RDW 15.5 H Plt Count Lymph % (Auto) [place] % (Auto) 7.7 H Eos % (Auto) Baso % (Auto) Lymph # Baso # Seg Neutrophils % 73.7 H Lymphocytes % (Manual) Monocytes % (Manual) Nucleated RBC % Seg Neutrophils # Seg Neutrophils # Man Monocytes # (Manual) PT INR Activated Clotting Time POC ABG pH POC ABG pCO2 POC ABG pO2 Sodium Potassium Chloride Carbon Dioxide BUN Creatinine Glucose POC Glucose 141 H 138 H Calcium Magnesium Direct Bilirubin AST ALT Alkaline Phosphatase Total Creatine Kinase CK-MB (CK-2) CK-MB (CK-2) Rel Index Troponin T C-Reactive Protein Total Protein Albumin Triglycerides Ur Specific [place] Urine WBC (Auto) Miscellaneous Test 05/17/17 03:45 WBC RBC Hgb Hct MCV MCH RDW Plt Count Lymph % (Auto) [place] % (Auto) Eos % (Auto) Baso % (Auto) Lymph # Baso # Seg Neutrophils % Lymphocytes % (Manual) Monocytes % (Manual) Nucleated RBC % Seg Neutrophils # Seg Neutrophils # Man Monocytes # (Manual) PT INR Activated Clotting Time POC ABG pH POC ABG pCO2 POC ABG pO2 Sodium Potassium Chloride Carbon Dioxide BUN Creatinine 0.2 L Glucose 131 H POC Glucose Calcium Magnesium Direct Bilirubin AST ALT Alkaline Phosphatase Total Creatine Kinase CK-MB (CK-2) CK-MB (CK-2) Rel Index Troponin T C-Reactive Protein Total Protein Albumin Triglycerides Ur Specific [place] Urine WBC (Auto) Miscellaneous Test Chest x-ray: report reviewed, image reviewed
--- NOTE | 2017-05-18 14:38 | Progress Note ---
Assessment and Plan 46 year old male with anoxic brain injury, due to cardiac arrest on 03/29/2017. He continues unresponsive. The last EEG per Dr. Perkins reveals no definite cortical activity. CT reveals extensive ischemic damage. 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 This is a very sad case as the patient is so young and had seemingly no health issues before this event. Prognosis is extremely poor. Awaiting progression to a T-piece. Plan - Encourage DNR status continue process of weaning from ventilator, if possible. continue supportive care. Subjective Date of service: 05/18/17 Principal diagnosis: coma,ARV,s/p arrest Interval history: This 46 year old male sustained a witnessed carduac arrest on 03/29/2017, was brought to ER and transferred to [facility] for care of acute IN. 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 Echocardiogram reveals EF of 30 to 35%. A CT scan of the brain on 04/04/17 revealed diffuse edema consistent with anoxic injury. A repeat scan on 05/05/2017 revealed resolution of the edema with atrophy and laminar necrosis in parietal and occipital lobes consistent with anoxic injury and ischemic damage. The patient has undergone trach. and PEG placement. His exam has been stable with no response, occasional withdrawal to pain, eyes open with spontaneous blinking. 05/18/17 The patient continues unresponsive on the ventilator. He continues to randomly open his eyes, but does not interact with the examiner. Objective - Exam Narrative Exam: HEENT - pupils are 4 mm. react to light to 3 mm. face symmetric. neck supple. Chest - clear to auscultation. Heart - reg. rate. normal S-1,S-2. Abdomen - soft, nontender. normal bowel sounds. Extremities - no edema. no lesions. Neuro - no response to verbal stimuli. Withdraws to painful stimuli all 4 limbs. shrugs to chest rub. CN's - eyes are yolked, seem to independently move in all directions. blinks spontaneously, but not to threat. Does not follow a flashlight. face is symmetric. Corneals intact. Swallows and yawns spontaneously. Motor - no spontaneous movement. Withdraws to painful stimuli. Reflexes - +3 on the rt., +2 on the lt. Sensory - withdraws to pain. . Cerebellar - cannot assess. - Vital Sign Vital Signs - 12hr 05/18/17 05/18/17 05/18/17 03:00 04:00 04:28 Temperature 98.6 F Pulse Rate 73 80 74 Respiratory 21 21 Rate Blood Pressure 92/52 95/60 102/50 O2 Sat by Pulse 96 97 98 Oximetry O2 Sat by Pulse Oximetry [ Assessment] 05/18/17 05/18/17 05/18/17 05:00 06:00 07:00 Temperature Pulse Rate 68 73 71 Respiratory 21 25 H 17 Rate Blood Pressure 99/61 104/67 95/60 O2 Sat by Pulse 94 98 99 Oximetry O2 Sat by Pulse Oximetry [ Assessment] 05/18/17 05/18/17 05/18/17 07:18 07:22 08:00 Temperature 97.5 F L Pulse Rate 75 64 Respiratory 17 Rate Blood Pressure 96/59 94/51 O2 Sat by Pulse 100 98 Oximetry O2 Sat by Pulse 100 Oximetry [ Assessment] 05/18/17 05/18/17 05/18/17 09:00 10:00 11:00 Temperature Pulse Rate 74 61 77 Respiratory 13 19 22 Rate Blood Pressure 86/56 82/46 99/57 O2 Sat by Pulse 98 100 98 Oximetry O2 Sat by Pulse Oximetry [ Assessment] 05/18/17 05/18/17 11:09 12:00 Temperature 97.5 F L Pulse Rate 76 69 Respiratory 20 Rate Blood Pressure 99/57 89/53 O2 Sat by Pulse 100 Oximetry O2 Sat by Pulse Oximetry [ Assessment] - Laboratory Findings CBC and BMP: 05/17/17 03:45 05/17/17 03:45 Abnormal Lab Findings: Abnormal Labs 03/29/17 03/29/17 03/29/17 11:35 11:35 11:40 WBC RBC Hgb Hct MCV 98 H MCH 33 H RDW Plt Count Lymph % (Auto) [place] % (Auto) Eos % (Auto) Baso % (Auto) Lymph # Baso # Seg Neutrophils % Lymphocytes % (Manual) Monocytes % (Manual) 9.0 H Nucleated RBC % 1.0 H Seg Neutrophils # Seg Neutrophils # Man Monocytes # (Manual) 0.9 H PT 15.8 H INR 1.20 H Activated Clotting Time POC ABG pH POC ABG pCO2 POC ABG pO2 Sodium Potassium 2.7 L* Chloride 95.3 L Carbon Dioxide 17 L BUN Creatinine Glucose 435 H POC Glucose Calcium Magnesium Direct Bilirubin AST ALT Alkaline Phosphatase Total Creatine Kinase CK-MB (CK-2) CK-MB (CK-2) Rel Index Troponin T C-Reactive Protein Total Protein 6.1 L Albumin 3.5 L Triglycerides Ur Specific [place] Urine WBC (Auto) Miscellaneous Test 03/29/17 03/29/17 03/29/17 12:34 13:10 13:25 WBC RBC Hgb Hct MCV MCH RDW Plt Count Lymph % (Auto) [place] % (Auto) Eos % (Auto) Baso % (Auto) Lymph # Baso # Seg Neutrophils % Lymphocytes % (Manual) Monocytes % (Manual) Nucleated RBC % Seg Neutrophils # Seg Neutrophils # Man Monocytes # (Manual) PT INR Activated Clotting Time 142 H 169 H 175 H POC ABG pH POC ABG pCO2 POC ABG pO2 Sodium Potassium Chloride Carbon Dioxide BUN Creatinine Glucose POC Glucose Calcium Magnesium Direct Bilirubin AST ALT Alkaline Phosphatase Total Creatine Kinase CK-MB (CK-2) CK-MB (CK-2) Rel Index Troponin T C-Reactive Protein Total Protein Albumin Triglycerides Ur Specific [place] Urine WBC (Auto) Miscellaneous Test 03/29/17 03/29/17 03/29/17 14:50 15:18 19:52 WBC RBC Hgb Hct MCV MCH RDW Plt Count Lymph % (Auto) [place] % (Auto) Eos % (Auto) Baso % (Auto) Lymph # Baso # Seg Neutrophils % Lymphocytes % (Manual) Monocytes % (Manual) Nucleated RBC % Seg Neutrophils # Seg Neutrophils # Man Monocytes # (Manual) PT INR Activated Clotting Time 175 H POC ABG pH 7.293 L POC ABG pCO2 POC ABG pO2 602 H Sodium Potassium Chloride Carbon Dioxide BUN Creatinine Glucose POC Glucose Calcium Magnesium Direct Bilirubin AST ALT Alkaline Phosphatase Total Creatine Kinase 7263 H CK-MB (CK-2) > 300.0 H CK-MB (CK-2) Rel Index 4.1 H Troponin T 8.080 H* D C-Reactive Protein Total Protein Albumin Triglycerides 195 H Ur Specific [place] Urine WBC (Auto) Miscellaneous Test 03/30/17 03/30/17 03/30/17 03:50 03:50 06:19 WBC 19.5 H RBC Hgb Hct MCV MCH RDW Plt Count Lymph % (Auto) [place] % (Auto) Eos % (Auto) Baso % (Auto) Lymph # Baso # Seg Neutrophils % Lymphocytes % (Manual) 7.0 L Monocytes % (Manual) Nucleated RBC % Seg Neutrophils # Seg Neutrophils # Man 12.7 H Monocytes # (Manual) 1.4 H PT INR Activated Clotting Time POC ABG pH POC ABG pCO2 28.2 L POC ABG pO2 108 H Sodium Potassium Chloride 108.9 H Carbon Dioxide 15 L BUN 25 H Creatinine Glucose 158 H POC Glucose Calcium 8.1 L Magnesium Direct Bilirubin AST ALT Alkaline Phosphatase Total Creatine Kinase 7963 H CK-MB (CK-2) > 300.0 H CK-MB (CK-2) Rel Index Troponin T 6.850 H* C-Reactive Protein Total Protein Albumin Triglycerides Ur Specific [place] Urine WBC (Auto) Miscellaneous Test 03/30/17 03/30/17 03/31/17 09:45 16:04 02:19 WBC RBC Hgb Hct MCV MCH RDW Plt Count Lymph % (Auto) [place] % (Auto) Eos % (Auto) Baso % (Auto) Lymph # Baso # Seg Neutrophils % Lymphocytes % (Manual) Monocytes % (Manual) Nucleated RBC % Seg Neutrophils # Seg Neutrophils # Man Monocytes # (Manual) PT INR Activated Clotting Time POC ABG pH POC ABG pCO2 POC ABG pO2 Sodium Potassium Chloride Carbon Dioxide BUN Creatinine Glucose POC Glucose 137 H Calcium Magnesium Direct Bilirubin AST ALT Alkaline Phosphatase Total Creatine Kinase CK-MB (CK-2) CK-MB (CK-2) Rel Index Troponin T C-Reactive Protein 21.80 H Total Protein Albumin Triglycerides Ur Specific [place] 1.031 H Urine WBC (Auto) Miscellaneous Test 03/31/17 03/31/17 03/31/17 03:57 06:54 09:22 WBC RBC Hgb Hct MCV MCH RDW Plt Count Lymph % (Auto) [place] % (Auto) Eos % (Auto) Baso % (Auto) Lymph # Baso # Seg Neutrophils % Lymphocytes % (Manual) Monocytes % (Manual) Nucleated RBC % Seg Neutrophils # Seg Neutrophils # Man Monocytes # (Manual) PT INR Activated Clotting Time POC ABG pH 7.475 H POC ABG pCO2 25.4 L POC ABG pO2 62 L Sodium Potassium Chloride Carbon Dioxide 19 L BUN 22 H Creatinine 0.6 L Glucose 148 H POC Glucose 143 H Calcium 8.3 L Magnesium Direct Bilirubin AST ALT Alkaline Phosphatase Total Creatine Kinase CK-MB (CK-2) CK-MB (CK-2) Rel Index Troponin T C-Reactive Protein Total Protein Albumin Triglycerides Ur Specific [place] Urine WBC (Auto) Miscellaneous Test 03/31/17 03/31/17 03/31/17 11:40 17:47 23:38 WBC RBC Hgb Hct MCV MCH RDW Plt Count Lymph % (Auto) [place] % (Auto) Eos % (Auto) Baso % (Auto) Lymph # Baso # Seg Neutrophils % Lymphocytes % (Manual) Monocytes % (Manual) Nucleated RBC % Seg Neutrophils # Seg Neutrophils # Man Monocytes # (Manual) PT INR Activated Clotting Time POC ABG pH POC ABG pCO2 POC ABG pO2 Sodium Potassium Chloride Carbon Dioxide BUN Creatinine Glucose POC Glucose 127 H 137 H 148 H Calcium Magnesium Direct Bilirubin AST ALT Alkaline Phosphatase Total Creatine Kinase CK-MB (CK-2) CK-MB (CK-2) Rel Index Troponin T C-Reactive Protein Total Protein Albumin Triglycerides Ur Specific [place] Urine WBC (Auto) Miscellaneous Test 04/01/17 04/01/17 04/01/17 04:29 05:01 11:54 WBC RBC Hgb Hct MCV MCH RDW Plt Count Lymph % (Auto) [place] % (Auto) Eos % (Auto) Baso % (Auto) Lymph # Baso # Seg Neutrophils % Lymphocytes % (Manual) Monocytes % (Manual) Nucleated RBC % Seg Neutrophils # Seg Neutrophils # Man Monocytes # (Manual) PT INR Activated Clotting Time POC ABG pH 7.513 H POC ABG pCO2 22.1 L POC ABG pO2 64 L Sodium Potassium Chloride Carbon Dioxide BUN Creatinine Glucose POC Glucose 121 H Calcium Magnesium Direct Bilirubin AST ALT Alkaline Phosphatase Total Creatine Kinase CK-MB (CK-2) CK-MB (CK-2) Rel Index Troponin T C-Reactive Protein Total Protein Albumin Triglycerides 151 H Ur Specific [place] Urine WBC (Auto) Miscellaneous Test 04/01/17 04/02/17 04/02/17 18:17 00:11 04:52 WBC RBC Hgb Hct MCV MCH RDW Plt Count Lymph % (Auto) [place] % (Auto) Eos % (Auto) Baso % (Auto) Lymph # Baso # Seg Neutrophils % Lymphocytes % (Manual) Monocytes % (Manual) Nucleated RBC % Seg Neutrophils # Seg Neutrophils # Man Monocytes # (Manual) PT INR Activated Clotting Time POC ABG pH 7.524 H POC ABG pCO2 25.5 L POC ABG pO2 66 L Sodium Potassium Chloride Carbon Dioxide BUN Creatinine Glucose POC Glucose 117 H 122 H Calcium Magnesium Direct Bilirubin AST ALT Alkaline Phosphatase Total Creatine Kinase CK-MB (CK-2) CK-MB (CK-2) Rel Index Troponin T C-Reactive Protein Total Protein Albumin Triglycerides Ur Specific [place] Urine WBC (Auto) Miscellaneous Test 04/02/17 04/02/17 04/02/17 05:18 10:41 12:19 WBC RBC Hgb Hct MCV MCH RDW Plt Count Lymph % (Auto) [place] % (Auto) Eos % (Auto) Baso % (Auto) Lymph # Baso # Seg Neutrophils % Lymphocytes % (Manual) Monocytes % (Manual) Nucleated RBC % Seg Neutrophils # Seg Neutrophils # Man Monocytes # (Manual) PT INR Activated Clotting Time POC ABG pH 7.534 H POC ABG pCO2 27.4 L POC ABG pO2 Sodium Potassium Chloride Carbon Dioxide BUN Creatinine Glucose POC Glucose 132 H 129 H Calcium Magnesium Direct Bilirubin AST ALT Alkaline Phosphatase Total Creatine Kinase CK-MB (CK-2) CK-MB (CK-2) Rel Index Troponin T C-Reactive Protein Total Protein Albumin Triglycerides Ur Specific [place] Urine WBC (Auto) Miscellaneous Test 04/02/17 04/03/17 04/03/17 18:05 00:08 05:09 WBC RBC Hgb Hct MCV MCH RDW Plt Count Lymph % (Auto) [place] % (Auto) Eos % (Auto) Baso % (Auto) Lymph # Baso # Seg Neutrophils % Lymphocytes % (Manual) Monocytes % (Manual) Nucleated RBC % Seg Neutrophils # Seg Neutrophils # Man Monocytes # (Manual) PT INR Activated Clotting Time POC ABG pH 7.455 H POC ABG pCO2 33.2 L POC ABG pO2 120 H Sodium Potassium Chloride Carbon Dioxide BUN Creatinine Glucose POC Glucose 136 H 128 H Calcium Magnesium Direct Bilirubin AST ALT Alkaline Phosphatase Total Creatine Kinase CK-MB (CK-2) CK-MB (CK-2) Rel Index Troponin T C-Reactive Protein Total Protein Albumin Triglycerides Ur Specific [place] Urine WBC (Auto) Miscellaneous Test 04/03/17 04/03/17 04/03/17 06:32 11:54 12:16 WBC 11.9 H RBC Hgb Hct MCV MCH RDW Plt Count 125 L Lymph % (Auto) 4.8 L [place] % (Auto) Eos % (Auto) Baso % (Auto) Lymph # 0.6 L Baso # Seg Neutrophils % 86.7 H Lymphocytes % (Manual) Monocytes % (Manual) Nucleated RBC % Seg Neutrophils # 10.3 H Seg Neutrophils # Man Monocytes # (Manual) PT INR Activated Clotting Time POC ABG pH POC ABG pCO2 POC ABG pO2 Sodium Potassium Chloride Carbon Dioxide BUN Creatinine Glucose POC Glucose 138 H 143 H Calcium Magnesium Direct Bilirubin AST ALT Alkaline Phosphatase Total Creatine Kinase CK-MB (CK-2) CK-MB (CK-2) Rel Index Troponin T C-Reactive Protein Total Protein Albumin Triglycerides Ur Specific [place] Urine WBC (Auto) Miscellaneous Test 04/03/17 04/03/17 04/04/17 17:33 23:59 04:34 WBC RBC Hgb Hct MCV MCH RDW Plt Count Lymph % (Auto) [place] % (Auto) Eos % (Auto) Baso % (Auto) Lymph # Baso # Seg Neutrophils % Lymphocytes % (Manual) Monocytes % (Manual) Nucleated RBC % Seg Neutrophils # Seg Neutrophils # Man Monocytes # (Manual) PT INR Activated Clotting Time POC ABG pH 7.457 H POC ABG pCO2 29.8 L POC ABG pO2 76 L Sodium Potassium Chloride Carbon Dioxide BUN Creatinine Glucose POC Glucose 130 H 155 H Calcium Magnesium Direct Bilirubin AST ALT Alkaline Phosphatase Total Creatine Kinase CK-MB (CK-2) CK-MB (CK-2) Rel Index Troponin T C-Reactive Protein Total Protein Albumin Triglycerides Ur Specific [place] Urine WBC (Auto) Miscellaneous Test 04/04/17 04/04/17 04/04/17 05:27 12:22 18:18 WBC RBC Hgb Hct MCV MCH RDW Plt Count Lymph % (Auto) [place] % (Auto) Eos % (Auto) Baso % (Auto) Lymph # Baso # Seg Neutrophils % Lymphocytes % (Manual) Monocytes % (Manual) Nucleated RBC % Seg Neutrophils # Seg Neutrophils # Man Monocytes # (Manual) PT INR Activated Clotting Time POC ABG pH POC ABG pCO2 POC ABG pO2 Sodium Potassium Chloride Carbon Dioxide BUN Creatinine Glucose POC Glucose 164 H 146 H 130 H Calcium Magnesium Direct Bilirubin AST ALT Alkaline Phosphatase Total Creatine Kinase CK-MB (CK-2) CK-MB (CK-2) Rel Index Troponin T C-Reactive Protein Total Protein Albumin Triglycerides Ur Specific [place] Urine WBC (Auto) Miscellaneous Test 04/05/17 04/05/17 04/05/17 04:43 05:28 11:36 WBC RBC Hgb Hct MCV MCH RDW Plt Count Lymph % (Auto) [place] % (Auto) Eos % (Auto) Baso % (Auto) Lymph # Baso # Seg Neutrophils % Lymphocytes % (Manual) Monocytes % (Manual) Nucleated RBC % Seg Neutrophils # Seg Neutrophils # Man Monocytes # (Manual) PT INR Activated Clotting Time POC ABG pH 7.479 H POC ABG pCO2 33.5 L POC ABG pO2 76 L Sodium Potassium Chloride Carbon Dioxide BUN Creatinine Glucose POC Glucose 145 H 136 H Calcium Magnesium Direct Bilirubin AST ALT Alkaline Phosphatase Total Creatine Kinase CK-MB (CK-2) CK-MB (CK-2) Rel Index Troponin T C-Reactive Protein Total Protein Albumin Triglycerides Ur Specific [place] Urine WBC (Auto) Miscellaneous Test 04/05/17 04/06/17 04/06/17 17:58 00:16 05:26 WBC RBC Hgb Hct MCV MCH RDW Plt Count Lymph % (Auto) [place] % (Auto) Eos % (Auto) Baso % (Auto) Lymph # Baso # Seg Neutrophils % Lymphocytes % (Manual) Monocytes % (Manual) Nucleated RBC % Seg Neutrophils # Seg Neutrophils # Man Monocytes # (Manual) PT INR Activated Clotting Time POC ABG pH POC ABG pCO2 POC ABG pO2 Sodium Potassium Chloride Carbon Dioxide BUN Creatinine Glucose POC Glucose 130 H 159 H 146 H Calcium Magnesium Direct Bilirubin AST ALT Alkaline Phosphatase Total Creatine Kinase CK-MB (CK-2) CK-MB (CK-2) Rel Index Troponin T C-Reactive Protein Total Protein Albumin Triglycerides Ur Specific [place] Urine WBC (Auto) Miscellaneous Test 04/06/17 04/06/17 04/07/17 13:11 16:54 11:45 WBC RBC Hgb Hct MCV MCH RDW Plt Count Lymph % (Auto) [place] % (Auto) Eos % (Auto) Baso % (Auto) Lymph # Baso # Seg Neutrophils % Lymphocytes % (Manual) Monocytes % (Manual) Nucleated RBC % Seg Neutrophils # Seg Neutrophils # Man Monocytes # (Manual) PT INR Activated Clotting Time POC ABG pH 7.517 H POC ABG pCO2 32.1 L POC ABG pO2 Sodium Potassium Chloride Carbon Dioxide BUN Creatinine Glucose POC Glucose 132 H 123 H Calcium Magnesium Direct Bilirubin AST ALT Alkaline Phosphatase Total Creatine Kinase CK-MB (CK-2) CK-MB (CK-2) Rel Index Troponin T C-Reactive Protein Total Protein Albumin Triglycerides Ur Specific [place] Urine WBC (Auto) Miscellaneous Test 04/07/17 04/07/17 04/07/17 12:51 17:40 23:55 WBC RBC Hgb Hct MCV MCH RDW Plt Count Lymph % (Auto) [place] % (Auto) Eos % (Auto) Baso % (Auto) Lymph # Baso # Seg Neutrophils % Lymphocytes % (Manual) Monocytes % (Manual) Nucleated RBC % Seg Neutrophils # Seg Neutrophils # Man Monocytes # (Manual) PT INR Activated Clotting Time POC ABG pH POC ABG pCO2 POC ABG pO2 Sodium Potassium Chloride Carbon Dioxide BUN Creatinine Glucose POC Glucose 138 H 154 H 143 H Calcium Magnesium Direct Bilirubin AST ALT Alkaline Phosphatase Total Creatine Kinase CK-MB (CK-2) CK-MB (CK-2) Rel Index Troponin T C-Reactive Protein Total Protein Albumin Triglycerides Ur Specific [place] Urine WBC (Auto) Miscellaneous Test 04/08/17 04/08/17 04/08/17 05:27 11:14 17:44 WBC RBC Hgb Hct MCV MCH RDW Plt Count Lymph % (Auto) [place] % (Auto) Eos % (Auto) Baso % (Auto) Lymph # Baso # Seg Neutrophils % Lymphocytes % (Manual) Monocytes % (Manual) Nucleated RBC % Seg Neutrophils # Seg Neutrophils # Man Monocytes # (Manual) PT INR Activated Clotting Time POC ABG pH POC ABG pCO2 POC ABG pO2 Sodium Potassium Chloride Carbon Dioxide BUN Creatinine Glucose POC Glucose 142 H 153 H 129 H Calcium Magnesium Direct Bilirubin AST ALT Alkaline Phosphatase Total Creatine Kinase CK-MB (CK-2) CK-MB (CK-2) Rel Index Troponin T C-Reactive Protein Total Protein Albumin Triglycerides Ur Specific [place] Urine WBC (Auto) Miscellaneous Test 04/09/17 04/09/17 04/09/17 08:20 11:21 17:37 WBC RBC Hgb Hct MCV MCH RDW Plt Count Lymph % (Auto) [place] % (Auto) Eos % (Auto) Baso % (Auto) Lymph # Baso # Seg Neutrophils % Lymphocytes % (Manual) Monocytes % (Manual) Nucleated RBC % Seg Neutrophils # Seg Neutrophils # Man Monocytes # (Manual) PT INR Activated Clotting Time POC ABG pH POC ABG pCO2 POC ABG pO2 Sodium 147 H Potassium Chloride 108.8 H Carbon Dioxide BUN 39 H Creatinine 0.5 L Glucose 138 H POC Glucose 152 H 109 H Calcium Magnesium Direct Bilirubin AST ALT Alkaline Phosphatase Total Creatine Kinase CK-MB (CK-2) CK-MB (CK-2) Rel Index Troponin T C-Reactive Protein Total Protein Albumin Triglycerides Ur Specific [place] Urine WBC (Auto) Miscellaneous Test 04/10/17 04/10/17 04/10/17 00:13 04:16 04:16 WBC RBC Hgb 11.5 L Hct MCV 96 H MCH RDW Plt Count 103 L Lymph % (Auto) 11.1 L [place] % (Auto) Eos % (Auto) Baso % (Auto) Lymph # Baso # Seg Neutrophils % 81.5 H Lymphocytes % (Manual) Monocytes % (Manual) Nucleated RBC % Seg Neutrophils # 8.8 H Seg Neutrophils # Man Monocytes # (Manual) PT INR Activated Clotting Time POC ABG pH POC ABG pCO2 POC ABG pO2 Sodium 148 H Potassium Chloride 109.0 H Carbon Dioxide BUN 36 H Creatinine 0.5 L Glucose 131 H POC Glucose 127 H Calcium 8.1 L Magnesium 2.40 H Direct Bilirubin AST 206 H ALT 228 H Alkaline Phosphatase 178 H Total Creatine Kinase CK-MB (CK-2) CK-MB (CK-2) Rel Index Troponin T C-Reactive Protein Total Protein Albumin 2.8 L Triglycerides Ur Specific [place] Urine WBC (Auto) Miscellaneous Test 04/10/17 04/10/17 04/10/17 06:01 11:57 18:27 WBC RBC Hgb Hct MCV MCH RDW Plt Count Lymph % (Auto) [place] % (Auto) Eos % (Auto) Baso % (Auto) Lymph # Baso # Seg Neutrophils % Lymphocytes % (Manual) Monocytes % (Manual) Nucleated RBC % Seg Neutrophils # Seg Neutrophils # Man Monocytes # (Manual) PT INR Activated Clotting Time POC ABG pH POC ABG pCO2 POC ABG pO2 Sodium Potassium Chloride Carbon Dioxide BUN Creatinine Glucose POC Glucose 108 H 154 H 130 H Calcium Magnesium Direct Bilirubin AST ALT Alkaline Phosphatase Total Creatine Kinase CK-MB (CK-2) CK-MB (CK-2) Rel Index Troponin T C-Reactive Protein Total Protein Albumin Triglycerides Ur Specific [place] Urine WBC (Auto) Miscellaneous Test 04/11/17 04/11/17 04/12/17 12:25 17:10 00:22 WBC RBC Hgb Hct MCV MCH RDW Plt Count Lymph % (Auto) [place] % (Auto) Eos % (Auto) Baso % (Auto) Lymph # Baso # Seg Neutrophils % Lymphocytes % (Manual) Monocytes % (Manual) Nucleated RBC % Seg Neutrophils # Seg Neutrophils # Man Monocytes # (Manual) PT INR Activated Clotting Time POC ABG pH POC ABG pCO2 POC ABG pO2 Sodium Potassium Chloride Carbon Dioxide BUN Creatinine Glucose POC Glucose 107 H 129 H 128 H Calcium Magnesium Direct Bilirubin AST ALT Alkaline Phosphatase Total Creatine Kinase CK-MB (CK-2) CK-MB (CK-2) Rel Index Troponin T C-Reactive Protein Total Protein Albumin Triglycerides Ur Specific [place] Urine WBC (Auto) Miscellaneous Test 04/12/17 04/12/17 04/12/17 05:00 11:57 17:47 WBC RBC Hgb Hct MCV MCH RDW Plt Count Lymph % (Auto) [place] % (Auto) Eos % (Auto) Baso % (Auto) Lymph # Baso # Seg Neutrophils % Lymphocytes % (Manual) Monocytes % (Manual) Nucleated RBC % Seg Neutrophils # Seg Neutrophils # Man Monocytes # (Manual) PT INR Activated Clotting Time POC ABG pH POC ABG pCO2 POC ABG pO2 Sodium Potassium Chloride Carbon Dioxide BUN Creatinine Glucose POC Glucose 140 H 142 H Calcium Magnesium Direct Bilirubin AST 158 H ALT 184 H Alkaline Phosphatase 170 H Total Creatine Kinase CK-MB (CK-2) CK-MB (CK-2) Rel Index Troponin T C-Reactive Protein Total Protein Albumin 2.8 L Triglycerides Ur Specific [place] Urine WBC (Auto) Miscellaneous Test 04/12/17 04/12/17 04/13/17 21:36 21:36 01:37 WBC RBC Hgb Hct MCV MCH RDW Plt Count Lymph % (Auto) [place] % (Auto) Eos % (Auto) Baso % (Auto) Lymph # Baso # Seg Neutrophils % Lymphocytes % (Manual) Monocytes % (Manual) Nucleated RBC % Seg Neutrophils # Seg Neutrophils # Man Monocytes # (Manual) PT INR Activated Clotting Time POC ABG pH POC ABG pCO2 POC ABG pO2 Sodium Potassium Chloride Carbon Dioxide BUN Creatinine Glucose POC Glucose 126 H Calcium Magnesium Direct Bilirubin AST ALT Alkaline Phosphatase Total Creatine Kinase 1404 H CK-MB (CK-2) 8.0 H CK-MB (CK-2) Rel Index Troponin T 0.767 H* C-Reactive Protein Total Protein Albumin Triglycerides Ur Specific [place] Urine WBC (Auto) Miscellaneous Test 04/13/17 04/13/17 04/13/17 04:45 04:52 12:17 WBC RBC Hgb Hct MCV MCH RDW Plt Count Lymph % (Auto) [place] % (Auto) Eos % (Auto) Baso % (Auto) Lymph # Baso # Seg Neutrophils % Lymphocytes % (Manual) Monocytes % (Manual) Nucleated RBC % Seg Neutrophils # Seg Neutrophils # Man Monocytes # (Manual) PT INR Activated Clotting Time POC ABG pH POC ABG pCO2 POC ABG pO2 Sodium 148 H Potassium Chloride 112.8 H Carbon Dioxide BUN 33 H Creatinine 0.4 L Glucose 121 H POC Glucose 126 H 149 H Calcium Magnesium Direct Bilirubin AST 160 H ALT 189 H Alkaline Phosphatase 166 H Total Creatine Kinase CK-MB (CK-2) CK-MB (CK-2) Rel Index Troponin T C-Reactive Protein Total Protein Albumin 2.6 L Triglycerides Ur Specific [place] Urine WBC (Auto) Miscellaneous Test 04/13/17 04/14/17 04/14/17 17:45 00:20 00:45 WBC RBC Hgb Hct MCV MCH RDW Plt Count Lymph % (Auto) [place] % (Auto) Eos % (Auto) Baso % (Auto) Lymph # Baso # Seg Neutrophils % Lymphocytes % (Manual) Monocytes % (Manual) Nucleated RBC % Seg Neutrophils # Seg Neutrophils # Man Monocytes # (Manual) PT INR Activated Clotting Time POC ABG pH POC ABG pCO2 POC ABG pO2 Sodium Potassium Chloride Carbon Dioxide BUN Creatinine Glucose POC Glucose 130 H 144 H 144 H Calcium Magnesium Direct Bilirubin AST ALT Alkaline Phosphatase Total Creatine Kinase CK-MB (CK-2) CK-MB (CK-2) Rel Index Troponin T C-Reactive Protein Total Protein Albumin Triglycerides Ur Specific [place] Urine WBC (Auto) Miscellaneous Test 04/14/17 04/14/17 04/14/17 05:40 11:06 11:31 WBC RBC Hgb Hct MCV MCH RDW Plt Count Lymph % (Auto) [place] % (Auto) Eos % (Auto) Baso % (Auto) Lymph # Baso # Seg Neutrophils % Lymphocytes % (Manual) Monocytes % (Manual) Nucleated RBC % Seg Neutrophils # Seg Neutrophils # Man Monocytes # (Manual) PT INR Activated Clotting Time POC ABG pH POC ABG pCO2 POC ABG pO2 Sodium Potassium Chloride Carbon Dioxide BUN Creatinine Glucose POC Glucose 139 H 123 H Calcium Magnesium Direct Bilirubin AST ALT Alkaline Phosphatase Total Creatine Kinase CK-MB (CK-2) CK-MB (CK-2) Rel Index Troponin T C-Reactive Protein Total Protein Albumin Triglycerides Ur Specific [place] 1.033 H Urine WBC (Auto) > 182.0 H Miscellaneous Test 04/14/17 04/14/17 04/15/17 18:00 23:52 05:15 WBC 12.5 H RBC 3.38 L Hgb 10.6 L Hct 32.7 L MCV 97 H MCH RDW Plt Count 107 L Lymph % (Auto) 8.7 L [place] % (Auto) Eos % (Auto) Baso % (Auto) Lymph # 1.1 L Baso # Seg Neutrophils % 86.1 H Lymphocytes % (Manual) Monocytes % (Manual) Nucleated RBC % Seg Neutrophils # 10.7 H Seg Neutrophils # Man Monocytes # (Manual) PT INR Activated Clotting Time POC ABG pH POC ABG pCO2 POC ABG pO2 Sodium Potassium Chloride Carbon Dioxide BUN Creatinine Glucose POC Glucose 133 H 133 H Calcium Magnesium Direct Bilirubin AST ALT Alkaline Phosphatase Total Creatine Kinase CK-MB (CK-2) CK-MB (CK-2) Rel Index Troponin T C-Reactive Protein Total Protein Albumin Triglycerides Ur Specific [place] Urine WBC (Auto) Miscellaneous Test 04/15/17 04/15/17 04/15/17 05:15 05:25 11:50 WBC RBC Hgb Hct MCV MCH RDW Plt Count Lymph % (Auto) [place] % (Auto) Eos % (Auto) Baso % (Auto) Lymph # Baso # Seg Neutrophils % Lymphocytes % (Manual) Monocytes % (Manual) Nucleated RBC % Seg Neutrophils # Seg Neutrophils # Man Monocytes # (Manual) PT INR Activated Clotting Time POC ABG pH POC ABG pCO2 POC ABG pO2 Sodium 149 H Potassium 3.5 L Chloride 114.1 H Carbon Dioxide 21 L BUN 29 H Creatinine 0.4 L Glucose 128 H POC Glucose 133 H 107 H Calcium 8.3 L Magnesium Direct Bilirubin 0.4 H AST 149 H ALT 182 H Alkaline Phosphatase 143 H Total Creatine Kinase CK-MB (CK-2) CK-MB (CK-2) Rel Index Troponin T C-Reactive Protein Total Protein Albumin 2.5 L Triglycerides Ur Specific [place] Urine WBC (Auto) Miscellaneous Test 04/15/17 04/16/17 04/16/17 16:55 00:02 03:17 WBC RBC 3.39 L Hgb 10.5 L Hct 32.4 L MCV 96 H MCH RDW Plt Count 106 L Lymph % (Auto) 6.7 L [place] % (Auto) Eos % (Auto) Baso % (Auto) Lymph # 0.6 L Baso # Seg Neutrophils % 86.8 H Lymphocytes % (Manual) Monocytes % (Manual) Nucleated RBC % Seg Neutrophils # 8.2 H Seg Neutrophils # Man Monocytes # (Manual) PT INR Activated Clotting Time POC ABG pH POC ABG pCO2 POC ABG pO2 Sodium Potassium Chloride Carbon Dioxide BUN Creatinine Glucose POC Glucose 146 H 148 H Calcium Magnesium Direct Bilirubin AST ALT Alkaline Phosphatase Total Creatine Kinase CK-MB (CK-2) CK-MB (CK-2) Rel Index Troponin T C-Reactive Protein Total Protein Albumin Triglycerides Ur Specific [place] Urine WBC (Auto) Miscellaneous Test 04/16/17 04/16/17 04/16/17 03:17 05:19 11:13 WBC RBC Hgb Hct MCV MCH RDW Plt Count Lymph % (Auto) [place] % (Auto) Eos % (Auto) Baso % (Auto) Lymph # Baso # Seg Neutrophils % Lymphocytes % (Manual) Monocytes % (Manual) Nucleated RBC % Seg Neutrophils # Seg Neutrophils # Man Monocytes # (Manual) PT INR Activated Clotting Time POC ABG pH POC ABG pCO2 POC ABG pO2 Sodium 149 H Potassium Chloride 111.1 H Carbon Dioxide 20 L BUN 27 H Creatinine 0.3 L Glucose 156 H POC Glucose 171 H 169 H Calcium 8.3 L Magnesium Direct Bilirubin AST ALT Alkaline Phosphatase Total Creatine Kinase CK-MB (CK-2) CK-MB (CK-2) Rel Index Troponin T C-Reactive Protein Total Protein Albumin Triglycerides Ur Specific [place] Urine WBC (Auto) Miscellaneous Test 04/16/17 04/17/17 04/17/17 17:03 00:00 05:09 WBC RBC Hgb Hct MCV MCH RDW Plt Count Lymph % (Auto) [place] % (Auto) Eos % (Auto) Baso % (Auto) Lymph # Baso # Seg Neutrophils % Lymphocytes % (Manual) Monocytes % (Manual) Nucleated RBC % Seg Neutrophils # Seg Neutrophils # Man Monocytes # (Manual) PT INR Activated Clotting Time POC ABG pH POC ABG pCO2 POC ABG pO2 Sodium Potassium Chloride Carbon Dioxide BUN Creatinine Glucose POC Glucose 151 H 165 H 145 H Calcium Magnesium Direct Bilirubin AST ALT Alkaline Phosphatase Total Creatine Kinase CK-MB (CK-2) CK-MB (CK-2) Rel Index Troponin T C-Reactive Protein Total Protein Albumin Triglycerides Ur Specific [place] Urine WBC (Auto) Miscellaneous Test 04/17/17 04/17/17 04/18/17 11:38 17:47 00:01 WBC RBC Hgb Hct MCV MCH RDW Plt Count Lymph % (Auto) [place] % (Auto) Eos % (Auto) Baso % (Auto) Lymph # Baso # Seg Neutrophils % Lymphocytes % (Manual) Monocytes % (Manual) Nucleated RBC % Seg Neutrophils # Seg Neutrophils # Man Monocytes # (Manual) PT INR Activated Clotting Time POC ABG pH POC ABG pCO2 POC ABG pO2 Sodium Potassium Chloride Carbon Dioxide BUN Creatinine Glucose POC Glucose 170 H 161 H 131 H Calcium Magnesium Direct Bilirubin AST ALT Alkaline Phosphatase Total Creatine Kinase CK-MB (CK-2) CK-MB (CK-2) Rel Index Troponin T C-Reactive Protein Total Protein Albumin Triglycerides Ur Specific [place] Urine WBC (Auto) Miscellaneous Test 04/18/17 04/18/17 04/18/17 03:55 03:55 05:30 WBC RBC 3.05 L Hgb 9.8 L Hct 29.0 L MCV 95 H MCH RDW Plt Count 113 L Lymph % (Auto) [place] % (Auto) Eos % (Auto) 5.3 H Baso % (Auto) Lymph # Baso # Seg Neutrophils % 71.5 H Lymphocytes % (Manual) Monocytes % (Manual) Nucleated RBC % Seg Neutrophils # Seg Neutrophils # Man Monocytes # (Manual) PT INR Activated Clotting Time POC ABG pH 7.460 H POC ABG pCO2 30.8 L POC ABG pO2 129 H Sodium Potassium Chloride Carbon Dioxide 21 L BUN 25 H Creatinine 0.4 L Glucose 123 H POC Glucose Calcium 8.3 L Magnesium Direct Bilirubin AST ALT Alkaline Phosphatase Total Creatine Kinase CK-MB (CK-2) CK-MB (CK-2) Rel Index Troponin T C-Reactive Protein Total Protein Albumin Triglycerides Ur Specific [place] Urine WBC (Auto) Miscellaneous Test 04/18/17 04/18/17 04/19/17 17:10 23:40 04:36 WBC RBC 3.21 L Hgb 10.2 L Hct 30.4 L MCV 95 H MCH RDW Plt Count 131 L Lymph % (Auto) 12.1 L [place] % (Auto) Eos % (Auto) 4.7 H Baso % (Auto) 2.4 H Lymph # 0.9 L Baso # 0.2 H Seg Neutrophils % 75.0 H Lymphocytes % (Manual) Monocytes % (Manual) Nucleated RBC % Seg Neutrophils # Seg Neutrophils # Man Monocytes # (Manual) PT INR Activated Clotting Time POC ABG pH POC ABG pCO2 POC ABG pO2 Sodium Potassium Chloride Carbon Dioxide BUN Creatinine Glucose POC Glucose 135 H 157 H Calcium Magnesium Direct Bilirubin AST ALT Alkaline Phosphatase Total Creatine Kinase CK-MB (CK-2) CK-MB (CK-2) Rel Index Troponin T C-Reactive Protein Total Protein Albumin Triglycerides Ur Specific [place] Urine WBC (Auto) Miscellaneous Test 04/19/17 04/19/17 04/19/17 04:36 05:12 06:50 WBC RBC Hgb Hct MCV MCH RDW Plt Count Lymph % (Auto) [place] % (Auto) Eos % (Auto) Baso % (Auto) Lymph # Baso # Seg Neutrophils % Lymphocytes % (Manual) Monocytes % (Manual) Nucleated RBC % Seg Neutrophils # Seg Neutrophils # Man Monocytes # (Manual) PT INR Activated Clotting Time POC ABG pH 7.516 H POC ABG pCO2 28.0 L POC ABG pO2 Sodium Potassium Chloride Carbon Dioxide 21 L BUN 23 H Creatinine 0.2 L Glucose 137 H POC Glucose 131 H Calcium 7.9 L Magnesium Direct Bilirubin AST ALT Alkaline Phosphatase Total Creatine Kinase CK-MB (CK-2) CK-MB (CK-2) Rel Index Troponin T C-Reactive Protein Total Protein Albumin Triglycerides Ur Specific [place] Urine WBC (Auto) Miscellaneous Test 04/19/17 04/19/17 04/20/17 12:36 17:42 00:12 WBC RBC Hgb Hct MCV MCH RDW Plt Count Lymph % (Auto) [place] % (Auto) Eos % (Auto) Baso % (Auto) Lymph # Baso # Seg Neutrophils % Lymphocytes % (Manual) Monocytes % (Manual) Nucleated RBC % Seg Neutrophils # Seg Neutrophils # Man Monocytes # (Manual) PT INR Activated Clotting Time POC ABG pH POC ABG pCO2 POC ABG pO2 Sodium Potassium Chloride Carbon Dioxide BUN Creatinine Glucose POC Glucose 128 H 140 H 132 H Calcium Magnesium Direct Bilirubin AST ALT Alkaline Phosphatase Total Creatine Kinase CK-MB (CK-2) CK-MB (CK-2) Rel Index Troponin T C-Reactive Protein Total Protein Albumin Triglycerides Ur Specific [place] Urine WBC (Auto) Miscellaneous Test 04/20/17 04/20/17 04/20/17 03:35 03:35 05:10 WBC RBC 3.34 L Hgb 10.4 L Hct 31.6 L MCV 95 H MCH RDW Plt Count Lymph % (Auto) 12.9 L [place] % (Auto) Eos % (Auto) Baso % (Auto) Lymph # Baso # Seg Neutrophils % 77.3 H Lymphocytes % (Manual) Monocytes % (Manual) Nucleated RBC % Seg Neutrophils # Seg Neutrophils # Man Monocytes # (Manual) PT INR Activated Clotting Time POC ABG pH POC ABG pCO2 POC ABG pO2 Sodium Potassium Chloride Carbon Dioxide BUN Creatinine 0.3 L Glucose 155 H POC Glucose 135 H Calcium 7.8 L Magnesium Direct Bilirubin AST ALT Alkaline Phosphatase Total Creatine Kinase CK-MB (CK-2) CK-MB (CK-2) Rel Index Troponin T C-Reactive Protein Total Protein Albumin Triglycerides Ur Specific [place] Urine WBC (Auto) Miscellaneous Test 04/20/17 04/20/17 04/21/17 12:49 18:21 00:05 WBC RBC Hgb Hct MCV MCH RDW Plt Count Lymph % (Auto) [place] % (Auto) Eos % (Auto) Baso % (Auto) Lymph # Baso # Seg Neutrophils % Lymphocytes % (Manual) Monocytes % (Manual) Nucleated RBC % Seg Neutrophils # Seg Neutrophils # Man Monocytes # (Manual) PT INR Activated Clotting Time POC ABG pH POC ABG pCO2 POC ABG pO2 Sodium Potassium Chloride Carbon Dioxide BUN Creatinine Glucose POC Glucose 155 H 165 H 141 H Calcium Magnesium Direct Bilirubin AST ALT Alkaline Phosphatase Total Creatine Kinase CK-MB (CK-2) CK-MB (CK-2) Rel Index Troponin T C-Reactive Protein Total Protein Albumin Triglycerides Ur Specific [place] Urine WBC (Auto) Miscellaneous Test 04/21/17 04/21/17 04/21/17 06:00 12:11 17:04 WBC RBC Hgb Hct MCV MCH RDW Plt Count Lymph % (Auto) [place] % (Auto) Eos % (Auto) Baso % (Auto) Lymph # Baso # Seg Neutrophils % Lymphocytes % (Manual) Monocytes % (Manual) Nucleated RBC % Seg Neutrophils # Seg Neutrophils # Man Monocytes # (Manual) PT INR Activated Clotting Time POC ABG pH POC ABG pCO2 POC ABG pO2 Sodium Potassium Chloride Carbon Dioxide BUN Creatinine Glucose POC Glucose 152 H 165 H 156 H Calcium Magnesium Direct Bilirubin AST ALT Alkaline Phosphatase Total Creatine Kinase CK-MB (CK-2) CK-MB (CK-2) Rel Index Troponin T C-Reactive Protein Total Protein Albumin Triglycerides Ur Specific [place] Urine WBC (Auto) Miscellaneous Test 04/21/17 04/21/17 04/22/17 22:00 23:59 05:49 WBC RBC Hgb Hct MCV MCH RDW Plt Count Lymph % (Auto) [place] % (Auto) Eos % (Auto) Baso % (Auto) Lymph # Baso # Seg Neutrophils % Lymphocytes % (Manual) Monocytes % (Manual) Nucleated RBC % Seg Neutrophils # Seg Neutrophils # Man Monocytes # (Manual) PT INR Activated Clotting Time POC ABG pH POC ABG pCO2 POC ABG pO2 Sodium Potassium Chloride Carbon Dioxide BUN Creatinine Glucose POC Glucose 166 H 173 H Calcium Magnesium Direct Bilirubin AST ALT Alkaline Phosphatase Total Creatine Kinase CK-MB (CK-2) CK-MB (CK-2) Rel Index Troponin T C-Reactive Protein Total Protein Albumin Triglycerides Ur Specific [place] Urine WBC (Auto) 10.0 H Miscellaneous Test 04/22/17 04/22/17 04/23/17 11:11 18:04 00:37 WBC RBC Hgb Hct MCV MCH RDW Plt Count Lymph % (Auto) [place] % (Auto) Eos % (Auto) Baso % (Auto) Lymph # Baso # Seg Neutrophils % Lymphocytes % (Manual) Monocytes % (Manual) Nucleated RBC % Seg Neutrophils # Seg Neutrophils # Man Monocytes # (Manual) PT INR Activated Clotting Time POC ABG pH POC ABG pCO2 POC ABG pO2 Sodium Potassium Chloride Carbon Dioxide BUN Creatinine Glucose POC Glucose 172 H 140 H 135 H Calcium Magnesium Direct Bilirubin AST ALT Alkaline Phosphatase Total Creatine Kinase CK-MB (CK-2) CK-MB (CK-2) Rel Index Troponin T C-Reactive Protein Total Protein Albumin Triglycerides Ur Specific [place] Urine WBC (Auto) Miscellaneous Test 04/23/17 04/23/17 04/23/17 05:33 06:20 11:10 WBC RBC 3.19 L Hgb 9.9 L Hct 30.0 L MCV MCH RDW Plt Count Lymph % (Auto) 8.0 L [place] % (Auto) Eos % (Auto) Baso % (Auto) Lymph # 0.8 L Baso # Seg Neutrophils % 84.5 H Lymphocytes % (Manual) Monocytes % (Manual) Nucleated RBC % Seg Neutrophils # 8.2 H Seg Neutrophils # Man Monocytes # (Manual) PT INR Activated Clotting Time POC ABG pH POC ABG pCO2 POC ABG pO2 Sodium Potassium Chloride Carbon Dioxide BUN Creatinine Glucose POC Glucose 134 H 134 H Calcium Magnesium Direct Bilirubin AST ALT Alkaline Phosphatase Total Creatine Kinase CK-MB (CK-2) CK-MB (CK-2) Rel Index Troponin T C-Reactive Protein Total Protein Albumin Triglycerides Ur Specific [place] Urine WBC (Auto) Miscellaneous Test 04/23/17 04/24/17 04/24/17 17:26 00:53 06:46 WBC RBC Hgb Hct MCV MCH RDW Plt Count Lymph % (Auto) [place] % (Auto) Eos % (Auto) Baso % (Auto) Lymph # Baso # Seg Neutrophils % Lymphocytes % (Manual) Monocytes % (Manual) Nucleated RBC % Seg Neutrophils # Seg Neutrophils # Man Monocytes # (Manual) PT INR Activated Clotting Time POC ABG pH POC ABG pCO2 POC ABG pO2 Sodium Potassium Chloride Carbon Dioxide BUN Creatinine Glucose POC Glucose 164 H 146 H 125 H Calcium Magnesium Direct Bilirubin AST ALT Alkaline Phosphatase Total Creatine Kinase CK-MB (CK-2) CK-MB (CK-2) Rel Index Troponin T C-Reactive Protein Total Protein Albumin Triglycerides Ur Specific [place] Urine WBC (Auto) Miscellaneous Test 04/24/17 04/24/17 04/24/17 11:55 17:50 23:36 WBC RBC Hgb Hct MCV MCH RDW Plt Count Lymph % (Auto) [place] % (Auto) Eos % (Auto) Baso % (Auto) Lymph # Baso # Seg Neutrophils % Lymphocytes % (Manual) Monocytes % (Manual) Nucleated RBC % Seg Neutrophils # Seg Neutrophils # Man Monocytes # (Manual) PT INR Activated Clotting Time POC ABG pH POC ABG pCO2 POC ABG pO2 Sodium Potassium Chloride Carbon Dioxide BUN Creatinine Glucose POC Glucose 156 H 146 H 131 H Calcium Magnesium Direct Bilirubin AST ALT Alkaline Phosphatase Total Creatine Kinase CK-MB (CK-2) CK-MB (CK-2) Rel Index Troponin T C-Reactive Protein Total Protein Albumin Triglycerides Ur Specific [place] Urine WBC (Auto) Miscellaneous Test 04/25/17 04/25/17 04/25/17 04:51 05:16 07:07 WBC RBC Hgb Hct MCV MCH RDW Plt Count Lymph % (Auto) [place] % (Auto) Eos % (Auto) Baso % (Auto) Lymph # Baso # Seg Neutrophils % Lymphocytes % (Manual) Monocytes % (Manual) Nucleated RBC % Seg Neutrophils # Seg Neutrophils # Man Monocytes # (Manual) PT INR Activated Clotting Time POC ABG pH POC ABG pCO2 POC ABG pO2 Sodium Potassium Chloride Carbon Dioxide BUN Creatinine Glucose POC Glucose 139 H Calcium Magnesium Direct Bilirubin AST 105 H ALT 204 H Alkaline Phosphatase 189 H Total Creatine Kinase CK-MB (CK-2) CK-MB (CK-2) Rel Index Troponin T C-Reactive Protein Total Protein Albumin 2.4 L Triglycerides Ur Specific [place] Urine WBC (Auto) Miscellaneous Test Flexitest 1 H 04/25/17 04/25/17 04/25/17 12:29 17:23 23:32 WBC RBC Hgb Hct MCV MCH RDW Plt Count Lymph % (Auto) [place] % (Auto) Eos % (Auto) Baso % (Auto) Lymph # Baso # Seg Neutrophils % Lymphocytes % (Manual) Monocytes % (Manual) Nucleated RBC % Seg Neutrophils # Seg Neutrophils # Man Monocytes # (Manual) PT INR Activated Clotting Time POC ABG pH POC ABG pCO2 POC ABG pO2 Sodium Potassium Chloride Carbon Dioxide BUN Creatinine Glucose POC Glucose 132 H 133 H 128 H Calcium Magnesium Direct Bilirubin AST ALT Alkaline Phosphatase Total Creatine Kinase CK-MB (CK-2) CK-MB (CK-2) Rel Index Troponin T C-Reactive Protein Total Protein Albumin Triglycerides Ur Specific [place] Urine WBC (Auto) Miscellaneous Test 04/26/17 04/26/17 04/26/17 05:24 11:28 17:09 WBC RBC Hgb Hct MCV MCH RDW Plt Count Lymph % (Auto) [place] % (Auto) Eos % (Auto) Baso % (Auto) Lymph # Baso # Seg Neutrophils % Lymphocytes % (Manual) Monocytes % (Manual) Nucleated RBC % Seg Neutrophils # Seg Neutrophils # Man Monocytes # (Manual) PT INR Activated Clotting Time POC ABG pH POC ABG pCO2 POC ABG pO2 Sodium Potassium Chloride Carbon Dioxide BUN Creatinine Glucose POC Glucose 132 H 146 H 141 H Calcium Magnesium Direct Bilirubin AST ALT Alkaline Phosphatase Total Creatine Kinase CK-MB (CK-2) CK-MB (CK-2) Rel Index Troponin T C-Reactive Protein Total Protein Albumin Triglycerides Ur Specific [place] Urine WBC (Auto) Miscellaneous Test 04/26/17 04/27/17 04/27/17 23:52 05:40 05:40 WBC RBC 3.22 L Hgb 10.0 L Hct 29.9 L MCV MCH RDW Plt Count Lymph % (Auto) [place] % (Auto) Eos % (Auto) Baso % (Auto) Lymph # Baso # Seg Neutrophils % 76.6 H Lymphocytes % (Manual) Monocytes % (Manual) Nucleated RBC % Seg Neutrophils # Seg Neutrophils # Man Monocytes # (Manual) PT INR Activated Clotting Time POC ABG pH POC ABG pCO2 POC ABG pO2 Sodium Potassium Chloride Carbon Dioxide BUN Creatinine Glucose POC Glucose 140 H Calcium Magnesium Direct Bilirubin AST 66 H ALT 137 H Alkaline Phosphatase 169 H Total Creatine Kinase CK-MB (CK-2) CK-MB (CK-2) Rel Index Troponin T C-Reactive Protein Total Protein 6.2 L Albumin 2.6 L Triglycerides Ur Specific [place] Urine WBC (Auto) Miscellaneous Test 04/27/17 04/27/17 04/27/17 05:40 06:10 11:13 WBC RBC Hgb Hct MCV MCH RDW Plt Count Lymph % (Auto) [place] % (Auto) Eos % (Auto) Baso % (Auto) Lymph # Baso # Seg Neutrophils % Lymphocytes % (Manual) Monocytes % (Manual) Nucleated RBC % Seg Neutrophils # Seg Neutrophils # Man Monocytes # (Manual) PT INR Activated Clotting Time POC ABG pH POC ABG pCO2 POC ABG pO2 Sodium Potassium Chloride Carbon Dioxide BUN Creatinine 0.2 L Glucose 139 H POC Glucose 130 H 151 H Calcium Magnesium Direct Bilirubin AST ALT Alkaline Phosphatase Total Creatine Kinase CK-MB (CK-2) CK-MB (CK-2) Rel Index Troponin T C-Reactive Protein Total Protein Albumin Triglycerides Ur Specific [place] Urine WBC (Auto) Miscellaneous Test 04/27/17 04/27/17 04/28/17 17:37 23:19 05:24 WBC RBC Hgb Hct MCV MCH RDW Plt Count Lymph % (Auto) [place] % (Auto) Eos % (Auto) Baso % (Auto) Lymph # Baso # Seg Neutrophils % Lymphocytes % (Manual) Monocytes % (Manual) Nucleated RBC % Seg Neutrophils # Seg Neutrophils # Man Monocytes # (Manual) PT INR Activated Clotting Time POC ABG pH POC ABG pCO2 POC ABG pO2 Sodium Potassium Chloride Carbon Dioxide BUN Creatinine Glucose POC Glucose 159 H 130 H 132 H Calcium Magnesium Direct Bilirubin AST ALT Alkaline Phosphatase Total Creatine Kinase CK-MB (CK-2) CK-MB (CK-2) Rel Index Troponin T C-Reactive Protein Total Protein Albumin Triglycerides Ur Specific [place] Urine WBC (Auto) Miscellaneous Test 02/02/18 02/02/18 02/02/18 11:15 17:38 23:23 WBC RBC Hgb Hct MCV MCH RDW Plt Count Lymph % (Auto) [place] % (Auto) Eos % (Auto) Baso % (Auto) Lymph # Baso # Seg Neutrophils % Lymphocytes % (Manual) Monocytes % (Manual) Nucleated RBC % Seg Neutrophils # Seg Neutrophils # Man Monocytes # (Manual) PT INR Activated Clotting Time POC ABG pH POC ABG pCO2 POC ABG pO2 Sodium Potassium Chloride Carbon Dioxide BUN Creatinine Glucose POC Glucose 162 H 133 H 138 H Calcium Magnesium Direct Bilirubin AST ALT Alkaline Phosphatase Total Creatine Kinase CK-MB (CK-2) CK-MB (CK-2) Rel Index Troponin T C-Reactive Protein Total Protein Albumin Triglycerides Ur Specific [place] Urine WBC (Auto) Miscellaneous Test 04/29/17 04/29/17 04/29/17 05:15 12:55 17:21 WBC RBC Hgb Hct MCV MCH RDW Plt Count Lymph % (Auto) [place] % (Auto) Eos % (Auto) Baso % (Auto) Lymph # Baso # Seg Neutrophils % Lymphocytes % (Manual) Monocytes % (Manual) Nucleated RBC % Seg Neutrophils # Seg Neutrophils # Man Monocytes # (Manual) PT INR Activated Clotting Time POC ABG pH POC ABG pCO2 POC ABG pO2 Sodium Potassium Chloride Carbon Dioxide BUN Creatinine Glucose POC Glucose 135 H 127 H 138 H Calcium Magnesium Direct Bilirubin AST ALT Alkaline Phosphatase Total Creatine Kinase CK-MB (CK-2) CK-MB (CK-2) Rel Index Troponin T C-Reactive Protein Total Protein Albumin Triglycerides Ur Specific [place] Urine WBC (Auto) Miscellaneous Test 04/29/17 04/30/17 04/30/17 23:52 04:55 12:22 WBC RBC Hgb Hct MCV MCH RDW Plt Count Lymph % (Auto) [place] % (Auto) Eos % (Auto) Baso % (Auto) Lymph # Baso # Seg Neutrophils % Lymphocytes % (Manual) Monocytes % (Manual) Nucleated RBC % Seg Neutrophils # Seg Neutrophils # Man Monocytes # (Manual) PT INR Activated Clotting Time POC ABG pH POC ABG pCO2 POC ABG pO2 Sodium Potassium Chloride Carbon Dioxide BUN Creatinine Glucose POC Glucose 142 H 146 H 132 H Calcium Magnesium Direct Bilirubin AST ALT Alkaline Phosphatase Total Creatine Kinase CK-MB (CK-2) CK-MB (CK-2) Rel Index Troponin T C-Reactive Protein Total Protein Albumin Triglycerides Ur Specific [place] Urine WBC (Auto) Miscellaneous Test 04/30/17 04/30/17 04/30/17 14:25 17:47 18:20 WBC RBC Hgb Hct MCV MCH RDW Plt Count Lymph % (Auto) [place] % (Auto) Eos % (Auto) Baso % (Auto) Lymph # Baso # Seg Neutrophils % Lymphocytes % (Manual) Monocytes % (Manual) Nucleated RBC % Seg Neutrophils # Seg Neutrophils # Man Monocytes # (Manual) PT INR Activated Clotting Time POC ABG pH 7.551 H POC ABG pCO2 32.7 L POC ABG pO2 Sodium Potassium Chloride Carbon Dioxide BUN 21 H Creatinine 0.2 L Glucose 141 H POC Glucose 139 H Calcium Magnesium Direct Bilirubin AST ALT Alkaline Phosphatase Total Creatine Kinase CK-MB (CK-2) CK-MB (CK-2) Rel Index Troponin T C-Reactive Protein Total Protein Albumin Triglycerides Ur Specific [place] Urine WBC (Auto) Miscellaneous Test 05/01/17 05/01/17 05/01/17 01:26 05:30 05:30 WBC RBC 3.49 L Hgb 10.3 L Hct 31.9 L MCV MCH RDW Plt Count Lymph % (Auto) [place] % (Auto) 8.1 H Eos % (Auto) Baso % (Auto) Lymph # Baso # Seg Neutrophils % 71.3 H Lymphocytes % (Manual) Monocytes % (Manual) Nucleated RBC % Seg Neutrophils # Seg Neutrophils # Man Monocytes # (Manual) PT INR Activated Clotting Time POC ABG pH POC ABG pCO2 POC ABG pO2 Sodium 136 L Potassium Chloride 97.6 L Carbon Dioxide BUN Creatinine 0.2 L Glucose 123 H POC Glucose 116 H Calcium Magnesium Direct Bilirubin AST 71 H ALT 125 H Alkaline Phosphatase 158 H Total Creatine Kinase CK-MB (CK-2) CK-MB (CK-2) Rel Index Troponin T C-Reactive Protein Total Protein Albumin 2.6 L Triglycerides Ur Specific [place] Urine WBC (Auto) Miscellaneous Test 05/01/17 05/01/17 05/02/17 11:59 17:23 00:08 WBC RBC Hgb Hct MCV MCH RDW Plt Count Lymph % (Auto) [place] % (Auto) Eos % (Auto) Baso % (Auto) Lymph # Baso # Seg Neutrophils % Lymphocytes % (Manual) Monocytes % (Manual) Nucleated RBC % Seg Neutrophils # Seg Neutrophils # Man Monocytes # (Manual) PT INR Activated Clotting Time POC ABG pH POC ABG pCO2 POC ABG pO2 Sodium Potassium Chloride Carbon Dioxide BUN Creatinine Glucose POC Glucose 118 H 144 H 122 H Calcium Magnesium Direct Bilirubin AST ALT Alkaline Phosphatase Total Creatine Kinase CK-MB (CK-2) CK-MB (CK-2) Rel Index Troponin T C-Reactive Protein Total Protein Albumin Triglycerides Ur Specific [place] Urine WBC (Auto) Miscellaneous Test 05/02/17 05/02/17 05/02/17 05:50 11:21 17:48 WBC RBC Hgb Hct MCV MCH RDW Plt Count Lymph % (Auto) [place] % (Auto) Eos % (Auto) Baso % (Auto) Lymph # Baso # Seg Neutrophils % Lymphocytes % (Manual) Monocytes % (Manual) Nucleated RBC % Seg Neutrophils # Seg Neutrophils # Man Monocytes # (Manual) PT INR Activated Clotting Time POC ABG pH POC ABG pCO2 POC ABG pO2 Sodium Potassium Chloride Carbon Dioxide BUN Creatinine Glucose POC Glucose 120 H 121 H 140 H Calcium Magnesium Direct Bilirubin AST ALT Alkaline Phosphatase Total Creatine Kinase CK-MB (CK-2) CK-MB (CK-2) Rel Index Troponin T C-Reactive Protein Total Protein Albumin Triglycerides Ur Specific [place] Urine WBC (Auto) Miscellaneous Test 05/02/17 05/03/17 05/03/17 23:12 05:35 11:52 WBC RBC Hgb Hct MCV MCH RDW Plt Count Lymph % (Auto) [place] % (Auto) Eos % (Auto) Baso % (Auto) Lymph # Baso # Seg Neutrophils % Lymphocytes % (Manual) Monocytes % (Manual) Nucleated RBC % Seg Neutrophils # Seg Neutrophils # Man Monocytes # (Manual) PT INR Activated Clotting Time POC ABG pH POC ABG pCO2 POC ABG pO2 Sodium Potassium Chloride Carbon Dioxide BUN Creatinine Glucose POC Glucose 128 H 113 H 126 H Calcium Magnesium Direct Bilirubin AST ALT Alkaline Phosphatase Total Creatine Kinase CK-MB (CK-2) CK-MB (CK-2) Rel Index Troponin T C-Reactive Protein Total Protein Albumin Triglycerides Ur Specific [place] Urine WBC (Auto) Miscellaneous Test 05/03/17 05/03/17 05/04/17 17:29 23:26 04:55 WBC RBC Hgb Hct MCV MCH RDW Plt Count Lymph % (Auto) [place] % (Auto) Eos % (Auto) Baso % (Auto) Lymph # Baso # Seg Neutrophils % Lymphocytes % (Manual) Monocytes % (Manual) Nucleated RBC % Seg Neutrophils # Seg Neutrophils # Man Monocytes # (Manual) PT INR Activated Clotting Time POC ABG pH POC ABG pCO2 POC ABG pO2 Sodium Potassium Chloride Carbon Dioxide BUN Creatinine Glucose POC Glucose 141 H 129 H 126 H Calcium Magnesium Direct Bilirubin AST ALT Alkaline Phosphatase Total Creatine Kinase CK-MB (CK-2) CK-MB (CK-2) Rel Index Troponin T C-Reactive Protein Total Protein Albumin Triglycerides Ur Specific [place] Urine WBC (Auto) Miscellaneous Test 05/04/17 05/04/17 05/05/17 12:09 17:46 00:06 WBC RBC Hgb Hct MCV MCH RDW Plt Count Lymph % (Auto) [place] % (Auto) Eos % (Auto) Baso % (Auto) Lymph # Baso # Seg Neutrophils % Lymphocytes % (Manual) Monocytes % (Manual) Nucleated RBC % Seg Neutrophils # Seg Neutrophils # Man Monocytes # (Manual) PT INR Activated Clotting Time POC ABG pH POC ABG pCO2 POC ABG pO2 Sodium Potassium Chloride Carbon Dioxide BUN Creatinine Glucose POC Glucose 125 H 125 H 110 H Calcium Magnesium Direct Bilirubin AST ALT Alkaline Phosphatase Total Creatine Kinase CK-MB (CK-2) CK-MB (CK-2) Rel Index Troponin T C-Reactive Protein Total Protein Albumin Triglycerides Ur Specific [place] Urine WBC (Auto) Miscellaneous Test 05/05/17 05/05/17 05/05/17 05:48 11:41 16:19 WBC RBC Hgb Hct MCV MCH RDW Plt Count Lymph % (Auto) [place] % (Auto) Eos % (Auto) Baso % (Auto) Lymph # Baso # Seg Neutrophils % Lymphocytes % (Manual) Monocytes % (Manual) Nucleated RBC % Seg Neutrophils # Seg Neutrophils # Man Monocytes # (Manual) PT INR Activated Clotting Time POC ABG pH POC ABG pCO2 POC ABG pO2 Sodium Potassium Chloride Carbon Dioxide BUN Creatinine Glucose POC Glucose 124 H 122 H 120 H Calcium Magnesium Direct Bilirubin AST ALT Alkaline Phosphatase Total Creatine Kinase CK-MB (CK-2) CK-MB (CK-2) Rel Index Troponin T C-Reactive Protein Total Protein Albumin Triglycerides Ur Specific [place] Urine WBC (Auto) Miscellaneous Test 05/06/17 05/06/17 05/06/17 00:16 05:47 11:42 WBC RBC Hgb Hct MCV MCH RDW Plt Count Lymph % (Auto) [place] % (Auto) Eos % (Auto) Baso % (Auto) Lymph # Baso # Seg Neutrophils % Lymphocytes % (Manual) Monocytes % (Manual) Nucleated RBC % Seg Neutrophils # Seg Neutrophils # Man Monocytes # (Manual) PT INR Activated Clotting Time POC ABG pH POC ABG pCO2 POC ABG pO2 Sodium Potassium Chloride Carbon Dioxide BUN Creatinine Glucose POC Glucose 110 H 142 H 120 H Calcium Magnesium Direct Bilirubin AST ALT Alkaline Phosphatase Total Creatine Kinase CK-MB (CK-2) CK-MB (CK-2) Rel Index Troponin T C-Reactive Protein Total Protein Albumin Triglycerides Ur Specific [place] Urine WBC (Auto) Miscellaneous Test 05/06/17 05/07/17 05/07/17 17:46 00:07 05:28 WBC RBC Hgb Hct MCV MCH RDW Plt Count Lymph % (Auto) [place] % (Auto) Eos % (Auto) Baso % (Auto) Lymph # Baso # Seg Neutrophils % Lymphocytes % (Manual) Monocytes % (Manual) Nucleated RBC % Seg Neutrophils # Seg Neutrophils # Man Monocytes # (Manual) PT INR Activated Clotting Time POC ABG pH POC ABG pCO2 POC ABG pO2 Sodium Potassium Chloride Carbon Dioxide BUN Creatinine Glucose POC Glucose 127 H 145 H 124 H Calcium Magnesium Direct Bilirubin AST ALT Alkaline Phosphatase Total Creatine Kinase CK-MB (CK-2) CK-MB (CK-2) Rel Index Troponin T C-Reactive Protein Total Protein Albumin Triglycerides Ur Specific [place] Urine WBC (Auto) Miscellaneous Test 05/07/17 05/07/17 05/08/17 11:17 17:14 00:03 WBC RBC Hgb Hct MCV MCH RDW Plt Count Lymph % (Auto) [place] % (Auto) Eos % (Auto) Baso % (Auto) Lymph # Baso # Seg Neutrophils % Lymphocytes % (Manual) Monocytes % (Manual) Nucleated RBC % Seg Neutrophils # Seg Neutrophils # Man Monocytes # (Manual) PT INR Activated Clotting Time POC ABG pH POC ABG pCO2 POC ABG pO2 Sodium Potassium Chloride Carbon Dioxide BUN Creatinine Glucose POC Glucose 144 H 125 H 122 H Calcium Magnesium Direct Bilirubin AST ALT Alkaline Phosphatase Total Creatine Kinase CK-MB (CK-2) CK-MB (CK-2) Rel Index Troponin T C-Reactive Protein Total Protein Albumin Triglycerides Ur Specific [place] Urine WBC (Auto) Miscellaneous Test 05/08/17 05/08/17 05/08/17 05:43 12:07 18:02 WBC RBC Hgb Hct MCV MCH RDW Plt Count Lymph % (Auto) [place] % (Auto) Eos % (Auto) Baso % (Auto) Lymph # Baso # Seg Neutrophils % Lymphocytes % (Manual) Monocytes % (Manual) Nucleated RBC % Seg Neutrophils # Seg Neutrophils # Man Monocytes # (Manual) PT INR Activated Clotting Time POC ABG pH POC ABG pCO2 POC ABG pO2 Sodium Potassium Chloride Carbon Dioxide BUN Creatinine Glucose POC Glucose 117 H 114 H 129 H Calcium Magnesium Direct Bilirubin AST ALT Alkaline Phosphatase Total Creatine Kinase CK-MB (CK-2) CK-MB (CK-2) Rel Index Troponin T C-Reactive Protein Total Protein Albumin Triglycerides Ur Specific [place] Urine WBC (Auto) Miscellaneous Test 05/08/17 05/09/17 05/09/17 23:53 04:19 05:14 WBC RBC Hgb Hct MCV MCH RDW Plt Count Lymph % (Auto) [place] % (Auto) Eos % (Auto) Baso % (Auto) Lymph # Baso # Seg Neutrophils % Lymphocytes % (Manual) Monocytes % (Manual) Nucleated RBC % Seg Neutrophils # Seg Neutrophils # Man Monocytes # (Manual) PT INR Activated Clotting Time POC ABG pH 7.524 H POC ABG pCO2 34.7 L POC ABG pO2 107 H Sodium Potassium Chloride Carbon Dioxide BUN Creatinine Glucose POC Glucose 125 H 118 H Calcium Magnesium Direct Bilirubin AST ALT Alkaline Phosphatase Total Creatine Kinase CK-MB (CK-2) CK-MB (CK-2) Rel Index Troponin T C-Reactive Protein Total Protein Albumin Triglycerides Ur Specific [place] Urine WBC (Auto) Miscellaneous Test 05/10/17 05/11/17 05/11/17 23:54 05:48 23:50 WBC RBC Hgb Hct MCV MCH RDW Plt Count Lymph % (Auto) [place] % (Auto) Eos % (Auto) Baso % (Auto) Lymph # Baso # Seg Neutrophils % Lymphocytes % (Manual) Monocytes % (Manual) Nucleated RBC % Seg Neutrophils # Seg Neutrophils # Man Monocytes # (Manual) PT INR Activated Clotting Time POC ABG pH POC ABG pCO2 POC ABG pO2 Sodium Potassium Chloride Carbon Dioxide BUN Creatinine Glucose POC Glucose 126 H 137 H 130 H Calcium Magnesium Direct Bilirubin AST ALT Alkaline Phosphatase Total Creatine Kinase CK-MB (CK-2) CK-MB (CK-2) Rel Index Troponin T C-Reactive Protein Total Protein Albumin Triglycerides Ur Specific [place] Urine WBC (Auto) Miscellaneous Test 05/12/17 05/12/17 05/12/17 05:48 11:33 18:00 WBC RBC Hgb Hct MCV MCH RDW Plt Count Lymph % (Auto) [place] % (Auto) Eos % (Auto) Baso % (Auto) Lymph # Baso # Seg Neutrophils % Lymphocytes % (Manual) Monocytes % (Manual) Nucleated RBC % Seg Neutrophils # Seg Neutrophils # Man Monocytes # (Manual) PT INR Activated Clotting Time POC ABG pH POC ABG pCO2 POC ABG pO2 Sodium Potassium Chloride Carbon Dioxide BUN Creatinine Glucose POC Glucose 126 H 116 H 131 H Calcium Magnesium Direct Bilirubin AST ALT Alkaline Phosphatase Total Creatine Kinase CK-MB (CK-2) CK-MB (CK-2) Rel Index Troponin T C-Reactive Protein Total Protein Albumin Triglycerides Ur Specific [place] Urine WBC (Auto) Miscellaneous Test 05/14/17 05/15/17 05/15/17 11:45 11:27 17:42 WBC RBC Hgb Hct MCV MCH RDW Plt Count Lymph % (Auto) [place] % (Auto) Eos % (Auto) Baso % (Auto) Lymph # Baso # Seg Neutrophils % Lymphocytes % (Manual) Monocytes % (Manual) Nucleated RBC % Seg Neutrophils # Seg Neutrophils # Man Monocytes # (Manual) PT INR Activated Clotting Time POC ABG pH POC ABG pCO2 POC ABG pO2 Sodium Potassium Chloride Carbon Dioxide BUN Creatinine Glucose POC Glucose 123 H 129 H 125 H Calcium Magnesium Direct Bilirubin AST ALT Alkaline Phosphatase Total Creatine Kinase CK-MB (CK-2) CK-MB (CK-2) Rel Index Troponin T C-Reactive Protein Total Protein Albumin Triglycerides Ur Specific [place] Urine WBC (Auto) Miscellaneous Test 05/16/17 05/16/17 05/17/17 00:29 06:50 03:45 WBC RBC Hgb 11.7 L Hct 34.8 L MCV MCH RDW 15.5 H Plt Count Lymph % (Auto) [place] % (Auto) 7.7 H Eos % (Auto) Baso % (Auto) Lymph # Baso # Seg Neutrophils % 73.7 H Lymphocytes % (Manual) Monocytes % (Manual) Nucleated RBC % Seg Neutrophils # Seg Neutrophils # Man Monocytes # (Manual) PT INR Activated Clotting Time POC ABG pH POC ABG pCO2 POC ABG pO2 Sodium Potassium Chloride Carbon Dioxide BUN Creatinine Glucose POC Glucose 141 H 138 H Calcium Magnesium Direct Bilirubin AST ALT Alkaline Phosphatase Total Creatine Kinase CK-MB (CK-2) CK-MB (CK-2) Rel Index Troponin T C-Reactive Protein Total Protein Albumin Triglycerides Ur Specific [place] Urine WBC (Auto) Miscellaneous Test 05/17/17 03:45 WBC RBC Hgb Hct MCV MCH RDW Plt Count Lymph % (Auto) [place] % (Auto) Eos % (Auto) Baso % (Auto) Lymph # Baso # Seg Neutrophils % Lymphocytes % (Manual) Monocytes % (Manual) Nucleated RBC % Seg Neutrophils # Seg Neutrophils # Man Monocytes # (Manual) PT INR Activated Clotting Time POC ABG pH POC ABG pCO2 POC ABG pO2 Sodium Potassium Chloride Carbon Dioxide BUN Creatinine 0.2 L Glucose 131 H POC Glucose Calcium Magnesium Direct Bilirubin AST ALT Alkaline Phosphatase Total Creatine Kinase CK-MB (CK-2) CK-MB (CK-2) Rel Index Troponin T C-Reactive Protein Total Protein Albumin Triglycerides Ur Specific [place] Urine WBC (Auto) Miscellaneous Test
[2017-05-19] MEDS: CORDARONE PO SCH ×3 (01:14→23:21)
[2017-05-19] MEDS: LOPRESSOR PO SCH ×3 (01:15→23:22)
[2017-05-19] MEDS: ELIQUIS PO SCH ×3 (12:03→23:21)
[2017-05-19] MEDS: ASPIRIN PO SCH (12:03)
[2017-05-19] MEDS: PROTONIX FEEDTUBE SCH (12:03)
[2017-05-19] MEDS: PLAVIX PO SCH (12:03)
[2017-05-19] MEDS: ZESTRIL PO SCH (12:11)
--- NOTE | 2017-05-19 15:46 | Progress Note ---
Assessment and Plan Imp: 1. s/p CP arrest 2. Anoxic enceph. 3. Acute respiratory failure, hypoxia 4. s/p Trach/PEG 5. Hypernatremia 6. STEMI/ICMP 7. UTI Rec: 1. 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 Plavix 3. TFs, DVT/GI PPx 4. No significant hematuria in lazaro bag 5. Dismal prognosis and bad outcome is expected as explained by neurology and Dr. Ham (see previous notes); they have unrealistic expectations and thus he remains full support/full code 6. Complex patient Plan of care reviewed with sister at bedside, she understands/agrees; explained he is not likely to come off vent Subjective Date of service: 05/19/17 Principal diagnosis: coma,ARV,s/p arrest Interval history: No events. Eyes open but unresponsive. Tolerating PSV today with no apnea. Cannot give history. Active Medications Albuterol (Proventil) 2.5 mg IH Q3HRT PRN PRN Reason: Shortness Of Breath Last Admin: 04/13/17 21:25 Dose: 2.5 mg Amiodarone HCl (Cordarone) 200 mg PO BID [facility] Last Admin: 05/19/17 12:03 Dose: 200 mg Apixaban (Eliquis) 5 mg PO Q12HR [facility] PRN Reason: Protocol Last Admin: 05/19/17 12:04 Dose: 5 mg Aspirin (Aspirin) 325 mg PO QDAY [facility] Last Admin: 05/19/17 12:03 Dose: 325 mg Atorvastatin Calcium (Lipitor) 20 mg PO QHS [facility] Last Admin: 05/19/17 01:15 Dose: Not Given Clopidogrel Bisulfate (Plavix) 75 mg PO QDAY [facility] Last Admin: 05/19/17 12:03 Dose: 75 mg Dextrose (D50w (25gm) Syringe) 50 ml IV PRN PRN PRN Reason: Hypoglycemia Hydrophilic Ointment (Vaseline Lip Therapy) 1 applic TP Q2HR PRN PRN Reason: Dry Lips Last Admin: 05/01/17 00:35 Dose: 1 applic Lisinopril (Zestril) 2.5 mg PO QDAY [facility] Last Admin: 05/19/17 12:11 Dose: Not Given Metoprolol Tartrate (Lopressor) 2.5 mg IV Q4HR PRN PRN Reason: HR>130 Last Admin: 04/09/17 19:41 Dose: 2.5 mg Metoprolol Tartrate (Lopressor) 12.5 mg PO BID [facility] Last Admin: 05/19/17 12:10 Dose: Not Given Multi-Ingred Cream/Lotion/Oil/Oint (Artificial Tears Ophth Oint) 1 applic OU Q4HR PRN PRN Reason: Dry Eye(s) Last Admin: 03/31/17 22:51 Dose: 1 applic Pantoprazole (Protonix) 40 mg FEEDTUBE DAILY [facility] Last Admin: 05/19/17 12:03 Dose: 40 mg Scopolamine (Transderm-Scop) 1 each TD Q3D [facility] Last Admin: 05/17/17 18:50 Dose: 1 each Zolpidem Tartrate (Ambien) 10 mg PO QHS PRN PRN Reason: Insomnia Objective Vital Signs - 12hr 05/19/17 05/19/17 05/19/17 04:00 05:00 06:00 Temperature 98.1 F Pulse Rate 75 68 72 Respiratory 24 18 19 Rate Blood Pressure 96/59 87/51 97/53 O2 Sat by Pulse 98 98 98 Oximetry O2 Sat by Pulse Oximetry [ Assessment] 05/19/17 05/19/17 05/19/17 07:00 07:10 08:00 Temperature 98.1 F Pulse Rate 73 73 66 Respiratory 16 18 Rate Blood Pressure 94/55 86/49 O2 Sat by Pulse 94 100 95 Oximetry O2 Sat by Pulse Oximetry [ Assessment] 05/19/17 05/19/17 05/19/17 08:20 11:07 12:00 Temperature 98.1 F Pulse Rate 73 75 Respiratory Rate Blood Pressure 93/49 97/58 O2 Sat by Pulse 100 99 Oximetry O2 Sat by Pulse 100 Oximetry [ Assessment] 05/19/17 05/19/17 05/19/17 12:10 15:00 15:03 Temperature Pulse Rate 69 70 Respiratory Rate Blood Pressure 93/60 92/62 O2 Sat by Pulse 99 Oximetry O2 Sat by Pulse 100 Oximetry [ Assessment] 05/19/17 15:39 Temperature 98.1 F Pulse Rate Respiratory Rate Blood Pressure O2 Sat by Pulse Oximetry O2 Sat by Pulse Oximetry [ Assessment] Constitutional: no acute distress, comatose Eyes: non-icteric ENT: oropharynx moist Neck: supple, other (tracheotomy ) Effort: normal Ascultation: Bilateral: other (coarse BS bilaterally) Percussion: Bilateral: not dull Cardiovascular: regular rate and rhythm Gastrointestinal: normoactive bowel sounds, soft, non-tender, non-distended Integumentary: normal Extremities: no cyanosis, no edema, pink and warm Neurologic: other (nonresponsive with flaccid extremities) Psychiatric: other (eyes open spontaneously but does not follow any voice commands, otherwise nonresponsive except for pain) CBC and BMP: 05/17/17 03:45 05/17/17 03:45 ABG, PT/INR, D-dimer: ABG POC ABG pH 7.524 (7.35-7.45) H 05/09/17 04:19 POC ABG pCO2 34.7 (35-45) L 05/09/17 04:19 POC ABG pO2 107 (80-105) H 05/09/17 04:19 POC ABG HCO3 28.6 05/09/17 04:19 POC ABG Total CO2 30 05/09/17 04:19 POC ABG O2 Sat 99 05/09/17 04:19 PT/INR, D-dimer PT 14.9 Sec. (12.2-14.9) 04/10/17 04:16 INR 1.11 (0.87-1.13) 04/10/17 04:16 Abnormal lab findings: Abnormal Labs 03/29/17 03/29/17 03/29/17 11:35 11:35 11:40 WBC RBC Hgb Hct MCV 98 H MCH 33 H RDW Plt Count Lymph % (Auto) [place] % (Auto) Eos % (Auto) Baso % (Auto) Lymph # Baso # Seg Neutrophils % Lymphocytes % (Manual) Monocytes % (Manual) 9.0 H Nucleated RBC % 1.0 H Seg Neutrophils # Seg Neutrophils # Man Monocytes # (Manual) 0.9 H PT 15.8 H INR 1.20 H Activated Clotting Time POC ABG pH POC ABG pCO2 POC ABG pO2 Sodium Potassium 2.7 L* Chloride 95.3 L Carbon Dioxide 17 L BUN Creatinine Glucose 435 H POC Glucose Calcium Magnesium Direct Bilirubin AST ALT Alkaline Phosphatase Total Creatine Kinase CK-MB (CK-2) CK-MB (CK-2) Rel Index Troponin T C-Reactive Protein Total Protein 6.1 L Albumin 3.5 L Triglycerides Ur Specific [place] Urine WBC (Auto) Miscellaneous Test 03/29/17 03/29/17 03/29/17 12:34 13:10 13:25 WBC RBC Hgb Hct MCV MCH RDW Plt Count Lymph % (Auto) [place] % (Auto) Eos % (Auto) Baso % (Auto) Lymph # Baso # Seg Neutrophils % Lymphocytes % (Manual) Monocytes % (Manual) Nucleated RBC % Seg Neutrophils # Seg Neutrophils # Man Monocytes # (Manual) PT INR Activated Clotting Time 142 H 169 H 175 H POC ABG pH POC ABG pCO2 POC ABG pO2 Sodium Potassium Chloride Carbon Dioxide BUN Creatinine Glucose POC Glucose Calcium Magnesium Direct Bilirubin AST ALT Alkaline Phosphatase Total Creatine Kinase CK-MB (CK-2) CK-MB (CK-2) Rel Index Troponin T C-Reactive Protein Total Protein Albumin Triglycerides Ur Specific [place] Urine WBC (Auto) Miscellaneous Test 03/29/17 03/29/17 03/29/17 14:50 15:18 19:52 WBC RBC Hgb Hct MCV MCH RDW Plt Count Lymph % (Auto) [place] % (Auto) Eos % (Auto) Baso % (Auto) Lymph # Baso # Seg Neutrophils % Lymphocytes % (Manual) Monocytes % (Manual) Nucleated RBC % Seg Neutrophils # Seg Neutrophils # Man Monocytes # (Manual) PT INR Activated Clotting Time 175 H POC ABG pH 7.293 L POC ABG pCO2 POC ABG pO2 602 H Sodium Potassium Chloride Carbon Dioxide BUN Creatinine Glucose POC Glucose Calcium Magnesium Direct Bilirubin AST ALT Alkaline Phosphatase Total Creatine Kinase 7263 H CK-MB (CK-2) > 300.0 H CK-MB (CK-2) Rel Index 4.1 H Troponin T 8.080 H* D C-Reactive Protein Total Protein Albumin Triglycerides 195 H Ur Specific [place] Urine WBC (Auto) Miscellaneous Test 03/30/17 03/30/17 03/30/17 03:50 03:50 06:19 WBC 19.5 H RBC Hgb Hct MCV MCH RDW Plt Count Lymph % (Auto) [place] % (Auto) Eos % (Auto) Baso % (Auto) Lymph # Baso # Seg Neutrophils % Lymphocytes % (Manual) 7.0 L Monocytes % (Manual) Nucleated RBC % Seg Neutrophils # Seg Neutrophils # Man 12.7 H Monocytes # (Manual) 1.4 H PT INR Activated Clotting Time POC ABG pH POC ABG pCO2 28.2 L POC ABG pO2 108 H Sodium Potassium Chloride 108.9 H Carbon Dioxide 15 L BUN 25 H Creatinine Glucose 158 H POC Glucose Calcium 8.1 L Magnesium Direct Bilirubin AST ALT Alkaline Phosphatase Total Creatine Kinase 7963 H CK-MB (CK-2) > 300.0 H CK-MB (CK-2) Rel Index Troponin T 6.850 H* C-Reactive Protein Total Protein Albumin Triglycerides Ur Specific [place] Urine WBC (Auto) Miscellaneous Test 03/30/17 03/30/17 03/31/17 09:45 16:04 02:19 WBC RBC Hgb Hct MCV MCH RDW Plt Count Lymph % (Auto) [place] % (Auto) Eos % (Auto) Baso % (Auto) Lymph # Baso # Seg Neutrophils % Lymphocytes % (Manual) Monocytes % (Manual) Nucleated RBC % Seg Neutrophils # Seg Neutrophils # Man Monocytes # (Manual) PT INR Activated Clotting Time POC ABG pH POC ABG pCO2 POC ABG pO2 Sodium Potassium Chloride Carbon Dioxide BUN Creatinine Glucose POC Glucose 137 H Calcium Magnesium Direct Bilirubin AST ALT Alkaline Phosphatase Total Creatine Kinase CK-MB (CK-2) CK-MB (CK-2) Rel Index Troponin T C-Reactive Protein 21.80 H Total Protein Albumin Triglycerides Ur Specific [place] 1.031 H Urine WBC (Auto) Miscellaneous Test 03/31/17 03/31/17 03/31/17 03:57 06:54 09:22 WBC RBC Hgb Hct MCV MCH RDW Plt Count Lymph % (Auto) [place] % (Auto) Eos % (Auto) Baso % (Auto) Lymph # Baso # Seg Neutrophils % Lymphocytes % (Manual) Monocytes % (Manual) Nucleated RBC % Seg Neutrophils # Seg Neutrophils # Man Monocytes # (Manual) PT INR Activated Clotting Time POC ABG pH 7.475 H POC ABG pCO2 25.4 L POC ABG pO2 62 L Sodium Potassium Chloride Carbon Dioxide 19 L BUN 22 H Creatinine 0.6 L Glucose 148 H POC Glucose 143 H Calcium 8.3 L Magnesium Direct Bilirubin AST ALT Alkaline Phosphatase Total Creatine Kinase CK-MB (CK-2) CK-MB (CK-2) Rel Index Troponin T C-Reactive Protein Total Protein Albumin Triglycerides Ur Specific [place] Urine WBC (Auto) Miscellaneous Test 03/31/17 03/31/1703/31/18 11:40 17:47 23:38 WBC RBC Hgb Hct MCV MCH RDW Plt Count Lymph % (Auto) [place] % (Auto) Eos % (Auto) Baso % (Auto) Lymph # Baso # Seg Neutrophils % Lymphocytes % (Manual) Monocytes % (Manual) Nucleated RBC % Seg Neutrophils # Seg Neutrophils # Man Monocytes # (Manual) PT INR Activated Clotting Time POC ABG pH POC ABG pCO2 POC ABG pO2 Sodium Potassium Chloride Carbon Dioxide BUN Creatinine Glucose POC Glucose 127 H 137 H 148 H Calcium Magnesium Direct Bilirubin AST ALT Alkaline Phosphatase Total Creatine Kinase CK-MB (CK-2) CK-MB (CK-2) Rel Index Troponin T C-Reactive Protein Total Protein Albumin Triglycerides Ur Specific [place] Urine WBC (Auto) Miscellaneous Test 04/01/17 04/01/17 04/01/17 04:29 05:01 11:54 WBC RBC Hgb Hct MCV MCH RDW Plt Count Lymph % (Auto) [place] % (Auto) Eos % (Auto) Baso % (Auto) Lymph # Baso # Seg Neutrophils % Lymphocytes % (Manual) Monocytes % (Manual) Nucleated RBC % Seg Neutrophils # Seg Neutrophils # Man Monocytes # (Manual) PT INR Activated Clotting Time POC ABG pH 7.513 H POC ABG pCO2 22.1 L POC ABG pO2 64 L Sodium Potassium Chloride Carbon Dioxide BUN Creatinine Glucose POC Glucose 121 H Calcium Magnesium Direct Bilirubin AST ALT Alkaline Phosphatase Total Creatine Kinase CK-MB (CK-2) CK-MB (CK-2) Rel Index Troponin T C-Reactive Protein Total Protein Albumin Triglycerides 151 H Ur Specific [place] Urine WBC (Auto) Miscellaneous Test 04/01/17 04/02/17 04/02/17 18:17 00:11 04:52 WBC RBC Hgb Hct MCV MCH RDW Plt Count Lymph % (Auto) [place] % (Auto) Eos % (Auto) Baso % (Auto) Lymph # Baso # Seg Neutrophils % Lymphocytes % (Manual) Monocytes % (Manual) Nucleated RBC % Seg Neutrophils # Seg Neutrophils # Man Monocytes # (Manual) PT INR Activated Clotting Time POC ABG pH 7.524 H POC ABG pCO2 25.5 L POC ABG pO2 66 L Sodium Potassium Chloride Carbon Dioxide BUN Creatinine Glucose POC Glucose 117 H 122 H Calcium Magnesium Direct Bilirubin AST ALT Alkaline Phosphatase Total Creatine Kinase CK-MB (CK-2) CK-MB (CK-2) Rel Index Troponin T C-Reactive Protein Total Protein Albumin Triglycerides Ur Specific [place] Urine WBC (Auto) Miscellaneous Test 04/02/17 04/02/17 04/02/17 05:18 10:41 12:19 WBC RBC Hgb Hct MCV MCH RDW Plt Count Lymph % (Auto) [place] % (Auto) Eos % (Auto) Baso % (Auto) Lymph # Baso # Seg Neutrophils % Lymphocytes % (Manual) Monocytes % (Manual) Nucleated RBC % Seg Neutrophils # Seg Neutrophils # Man Monocytes # (Manual) PT INR Activated Clotting Time POC ABG pH 7.534 H POC ABG pCO2 27.4 L POC ABG pO2 Sodium Potassium Chloride Carbon Dioxide BUN Creatinine Glucose POC Glucose 132 H 129 H Calcium Magnesium Direct Bilirubin AST ALT Alkaline Phosphatase Total Creatine Kinase CK-MB (CK-2) CK-MB (CK-2) Rel Index Troponin T C-Reactive Protein Total Protein Albumin Triglycerides Ur Specific [place] Urine WBC (Auto) Miscellaneous Test 04/02/17 04/03/17 04/03/17 18:05 00:08 05:09 WBC RBC Hgb Hct MCV MCH RDW Plt Count Lymph % (Auto) [place] % (Auto) Eos % (Auto) Baso % (Auto) Lymph # Baso # Seg Neutrophils % Lymphocytes % (Manual) Monocytes % (Manual) Nucleated RBC % Seg Neutrophils # Seg Neutrophils # Man Monocytes # (Manual) PT INR Activated Clotting Time POC ABG pH 7.455 H POC ABG pCO2 33.2 L POC ABG pO2 120 H Sodium Potassium Chloride Carbon Dioxide BUN Creatinine Glucose POC Glucose 136 H 128 H Calcium Magnesium Direct Bilirubin AST ALT Alkaline Phosphatase Total Creatine Kinase CK-MB (CK-2) CK-MB (CK-2) Rel Index Troponin T C-Reactive Protein Total Protein Albumin Triglycerides Ur Specific [place] Urine WBC (Auto) Miscellaneous Test 04/03/17 04/03/17 04/03/17 06:32 11:54 12:16 WBC 11.9 H RBC Hgb Hct MCV MCH RDW Plt Count 125 L Lymph % (Auto) 4.8 L [place] % (Auto) Eos % (Auto) Baso % (Auto) Lymph # 0.6 L Baso # Seg Neutrophils % 86.7 H Lymphocytes % (Manual) Monocytes % (Manual) Nucleated RBC % Seg Neutrophils # 10.3 H Seg Neutrophils # Man Monocytes # (Manual) PT INR Activated Clotting Time POC ABG pH POC ABG pCO2 POC ABG pO2 Sodium Potassium Chloride Carbon Dioxide BUN Creatinine Glucose POC Glucose 138 H 143 H Calcium Magnesium Direct Bilirubin AST ALT Alkaline Phosphatase Total Creatine Kinase CK-MB (CK-2) CK-MB (CK-2) Rel Index Troponin T C-Reactive Protein Total Protein Albumin Triglycerides Ur Specific [place] Urine WBC (Auto) Miscellaneous Test 04/03/17 04/03/17 04/04/17 17:33 23:59 04:34 WBC RBC Hgb Hct MCV MCH RDW Plt Count Lymph % (Auto) [place] % (Auto) Eos % (Auto) Baso % (Auto) Lymph # Baso # Seg Neutrophils % Lymphocytes % (Manual) Monocytes % (Manual) Nucleated RBC % Seg Neutrophils # Seg Neutrophils # Man Monocytes # (Manual) PT INR Activated Clotting Time POC ABG pH 7.457 H POC ABG pCO2 29.8 L POC ABG pO2 76 L Sodium Potassium Chloride Carbon Dioxide BUN Creatinine Glucose POC Glucose 130 H 155 H Calcium Magnesium Direct Bilirubin AST ALT Alkaline Phosphatase Total Creatine Kinase CK-MB (CK-2) CK-MB (CK-2) Rel Index Troponin T C-Reactive Protein Total Protein Albumin Triglycerides Ur Specific [place] Urine WBC (Auto) Miscellaneous Test 04/04/17 04/04/17 04/04/17 05:27 12:22 18:18 WBC RBC Hgb Hct MCV MCH RDW Plt Count Lymph % (Auto) [place] % (Auto) Eos % (Auto) Baso % (Auto) Lymph # Baso # Seg Neutrophils % Lymphocytes % (Manual) Monocytes % (Manual) Nucleated RBC % Seg Neutrophils # Seg Neutrophils # Man Monocytes # (Manual) PT INR Activated Clotting Time POC ABG pH POC ABG pCO2 POC ABG pO2 Sodium Potassium Chloride Carbon Dioxide BUN Creatinine Glucose POC Glucose 164 H 146 H 130 H Calcium Magnesium Direct Bilirubin AST ALT Alkaline Phosphatase Total Creatine Kinase CK-MB (CK-2) CK-MB (CK-2) Rel Index Troponin T C-Reactive Protein Total Protein Albumin Triglycerides Ur Specific [place] Urine WBC (Auto) Miscellaneous Test 04/05/17 04/05/17 04/05/17 04:43 05:28 11:36 WBC RBC Hgb Hct MCV MCH RDW Plt Count Lymph % (Auto) [place] % (Auto) Eos % (Auto) Baso % (Auto) Lymph # Baso # Seg Neutrophils % Lymphocytes % (Manual) Monocytes % (Manual) Nucleated RBC % Seg Neutrophils # Seg Neutrophils # Man Monocytes # (Manual) PT INR Activated Clotting Time POC ABG pH 7.479 H POC ABG pCO2 33.5 L POC ABG pO2 76 L Sodium Potassium Chloride Carbon Dioxide BUN Creatinine Glucose POC Glucose 145 H 136 H Calcium Magnesium Direct Bilirubin AST ALT Alkaline Phosphatase Total Creatine Kinase CK-MB (CK-2) CK-MB (CK-2) Rel Index Troponin T C-Reactive Protein Total Protein Albumin Triglycerides Ur Specific [place] Urine WBC (Auto) Miscellaneous Test 04/05/17 04/06/17 04/06/17 17:58 00:16 05:26 WBC RBC Hgb Hct MCV MCH RDW Plt Count Lymph % (Auto) [place] % (Auto) Eos % (Auto) Baso % (Auto) Lymph # Baso # Seg Neutrophils % Lymphocytes % (Manual) Monocytes % (Manual) Nucleated RBC % Seg Neutrophils # Seg Neutrophils # Man Monocytes # (Manual) PT INR Activated Clotting Time POC ABG pH POC ABG pCO2 POC ABG pO2 Sodium Potassium Chloride Carbon Dioxide BUN Creatinine Glucose POC Glucose 130 H 159 H 146 H Calcium Magnesium Direct Bilirubin AST ALT Alkaline Phosphatase Total Creatine Kinase CK-MB (CK-2) CK-MB (CK-2) Rel Index Troponin T C-Reactive Protein Total Protein Albumin Triglycerides Ur Specific [place] Urine WBC (Auto) Miscellaneous Test 04/06/17 04/06/17 04/07/17 13:11 16:54 11:45 WBC RBC Hgb Hct MCV MCH RDW Plt Count Lymph % (Auto) [place] % (Auto) Eos % (Auto) Baso % (Auto) Lymph # Baso # Seg Neutrophils % Lymphocytes % (Manual) Monocytes % (Manual) Nucleated RBC % Seg Neutrophils # Seg Neutrophils # Man Monocytes # (Manual) PT INR Activated Clotting Time POC ABG pH 7.517 H POC ABG pCO2 32.1 L POC ABG pO2 Sodium Potassium Chloride Carbon Dioxide BUN Creatinine Glucose POC Glucose 132 H 123 H Calcium Magnesium Direct Bilirubin AST ALT Alkaline Phosphatase Total Creatine Kinase CK-MB (CK-2) CK-MB (CK-2) Rel Index Troponin T C-Reactive Protein Total Protein Albumin Triglycerides Ur Specific [place] Urine WBC (Auto) Miscellaneous Test 04/07/17 04/07/17 04/07/17 12:51 17:40 23:55 WBC RBC Hgb Hct MCV MCH RDW Plt Count Lymph % (Auto) [place] % (Auto) Eos % (Auto) Baso % (Auto) Lymph # Baso # Seg Neutrophils % Lymphocytes % (Manual) Monocytes % (Manual) Nucleated RBC % Seg Neutrophils # Seg Neutrophils # Man Monocytes # (Manual) PT INR Activated Clotting Time POC ABG pH POC ABG pCO2 POC ABG pO2 Sodium Potassium Chloride Carbon Dioxide BUN Creatinine Glucose POC Glucose 138 H 154 H 143 H Calcium Magnesium Direct Bilirubin AST ALT Alkaline Phosphatase Total Creatine Kinase CK-MB (CK-2) CK-MB (CK-2) Rel Index Troponin T C-Reactive Protein Total Protein Albumin Triglycerides Ur Specific [place] Urine WBC (Auto) Miscellaneous Test 04/08/17 04/08/17 04/08/17 05:27 11:14 17:44 WBC RBC Hgb Hct MCV MCH RDW Plt Count Lymph % (Auto) [place] % (Auto) Eos % (Auto) Baso % (Auto) Lymph # Baso # Seg Neutrophils % Lymphocytes % (Manual) Monocytes % (Manual) Nucleated RBC % Seg Neutrophils # Seg Neutrophils # Man Monocytes # (Manual) PT INR Activated Clotting Time POC ABG pH POC ABG pCO2 POC ABG pO2 Sodium Potassium Chloride Carbon Dioxide BUN Creatinine Glucose POC Glucose 142 H 153 H 129 H Calcium Magnesium Direct Bilirubin AST ALT Alkaline Phosphatase Total Creatine Kinase CK-MB (CK-2) CK-MB (CK-2) Rel Index Troponin T C-Reactive Protein Total Protein Albumin Triglycerides Ur Specific [place] Urine WBC (Auto) Miscellaneous Test 04/09/17 04/09/17 04/09/17 08:20 11:21 17:37 WBC RBC Hgb Hct MCV MCH RDW Plt Count Lymph % (Auto) [place] % (Auto) Eos % (Auto) Baso % (Auto) Lymph # Baso # Seg Neutrophils % Lymphocytes % (Manual) Monocytes % (Manual) Nucleated RBC % Seg Neutrophils # Seg Neutrophils # Man Monocytes # (Manual) PT INR Activated Clotting Time POC ABG pH POC ABG pCO2 POC ABG pO2 Sodium 147 H Potassium Chloride 108.8 H Carbon Dioxide BUN 39 H Creatinine 0.5 L Glucose 138 H POC Glucose 152 H 109 H Calcium Magnesium Direct Bilirubin AST ALT Alkaline Phosphatase Total Creatine Kinase CK-MB (CK-2) CK-MB (CK-2) Rel Index Troponin T C-Reactive Protein Total Protein Albumin Triglycerides Ur Specific [place] Urine WBC (Auto) Miscellaneous Test 04/10/17 04/10/17 04/10/17 00:13 04:16 04:16 WBC RBC Hgb 11.5 L Hct MCV 96 H MCH RDW Plt Count 103 L Lymph % (Auto) 11.1 L [place] % (Auto) Eos % (Auto) Baso % (Auto) Lymph # Baso # Seg Neutrophils % 81.5 H Lymphocytes % (Manual) Monocytes % (Manual) Nucleated RBC % Seg Neutrophils # 8.8 H Seg Neutrophils # Man Monocytes # (Manual) PT INR Activated Clotting Time POC ABG pH POC ABG pCO2 POC ABG pO2 Sodium 148 H Potassium Chloride 109.0 H Carbon Dioxide BUN 36 H Creatinine 0.5 L Glucose 131 H POC Glucose 127 H Calcium 8.1 L Magnesium 2.40 H Direct Bilirubin AST 206 H ALT 228 H Alkaline Phosphatase 178 H Total Creatine Kinase CK-MB (CK-2) CK-MB (CK-2) Rel Index Troponin T C-Reactive Protein Total Protein Albumin 2.8 L Triglycerides Ur Specific [place] Urine WBC (Auto) Miscellaneous Test 04/10/17 04/10/17 04/10/17 06:01 11:57 18:27 WBC RBC Hgb Hct MCV MCH RDW Plt Count Lymph % (Auto) [place] % (Auto) Eos % (Auto) Baso % (Auto) Lymph # Baso # Seg Neutrophils % Lymphocytes % (Manual) Monocytes % (Manual) Nucleated RBC % Seg Neutrophils # Seg Neutrophils # Man Monocytes # (Manual) PT INR Activated Clotting Time POC ABG pH POC ABG pCO2 POC ABG pO2 Sodium Potassium Chloride Carbon Dioxide BUN Creatinine Glucose POC Glucose 108 H 154 H 130 H Calcium Magnesium Direct Bilirubin AST ALT Alkaline Phosphatase Total Creatine Kinase CK-MB (CK-2) CK-MB (CK-2) Rel Index Troponin T C-Reactive Protein Total Protein Albumin Triglycerides Ur Specific [place] Urine WBC (Auto) Miscellaneous Test 04/11/17 04/11/17 04/12/17 12:25 17:10 00:22 WBC RBC Hgb Hct MCV MCH RDW Plt Count Lymph % (Auto) [place] % (Auto) Eos % (Auto) Baso % (Auto) Lymph # Baso # Seg Neutrophils % Lymphocytes % (Manual) Monocytes % (Manual) Nucleated RBC % Seg Neutrophils # Seg Neutrophils # Man Monocytes # (Manual) PT INR Activated Clotting Time POC ABG pH POC ABG pCO2 POC ABG pO2 Sodium Potassium Chloride Carbon Dioxide BUN Creatinine Glucose POC Glucose 107 H 129 H 128 H Calcium Magnesium Direct Bilirubin AST ALT Alkaline Phosphatase Total Creatine Kinase CK-MB (CK-2) CK-MB (CK-2) Rel Index Troponin T C-Reactive Protein Total Protein Albumin Triglycerides Ur Specific [place] Urine WBC (Auto) Miscellaneous Test 04/12/17 04/12/17 04/12/17 05:00 11:57 17:47 WBC RBC Hgb Hct MCV MCH RDW Plt Count Lymph % (Auto) [place] % (Auto) Eos % (Auto) Baso % (Auto) Lymph # Baso # Seg Neutrophils % Lymphocytes % (Manual) Monocytes % (Manual) Nucleated RBC % Seg Neutrophils # Seg Neutrophils # Man Monocytes # (Manual) PT INR Activated Clotting Time POC ABG pH POC ABG pCO2 POC ABG pO2 Sodium Potassium Chloride Carbon Dioxide BUN Creatinine Glucose POC Glucose 140 H 142 H Calcium Magnesium Direct Bilirubin AST 158 H ALT 184 H Alkaline Phosphatase 170 H Total Creatine Kinase CK-MB (CK-2) CK-MB (CK-2) Rel Index Troponin T C-Reactive Protein Total Protein Albumin 2.8 L Triglycerides Ur Specific [place] Urine WBC (Auto) Miscellaneous Test 04/12/17 04/12/17 04/13/17 21:36 21:36 01:37 WBC RBC Hgb Hct MCV MCH RDW Plt Count Lymph % (Auto) [place] % (Auto) Eos % (Auto) Baso % (Auto) Lymph # Baso # Seg Neutrophils % Lymphocytes % (Manual) Monocytes % (Manual) Nucleated RBC % Seg Neutrophils # Seg Neutrophils # Man Monocytes # (Manual) PT INR Activated Clotting Time POC ABG pH POC ABG pCO2 POC ABG pO2 Sodium Potassium Chloride Carbon Dioxide BUN Creatinine Glucose POC Glucose 126 H Calcium Magnesium Direct Bilirubin AST ALT Alkaline Phosphatase Total Creatine Kinase 1404 H CK-MB (CK-2) 8.0 H CK-MB (CK-2) Rel Index Troponin T 0.767 H* C-Reactive Protein Total Protein Albumin Triglycerides Ur Specific [place] Urine WBC (Auto) Miscellaneous Test 04/13/17 04/13/17 04/13/17 04:45 04:52 12:17 WBC RBC Hgb Hct MCV MCH RDW Plt Count Lymph % (Auto) [place] % (Auto) Eos % (Auto) Baso % (Auto) Lymph # Baso # Seg Neutrophils % Lymphocytes % (Manual) Monocytes % (Manual) Nucleated RBC % Seg Neutrophils # Seg Neutrophils # Man Monocytes # (Manual) PT INR Activated Clotting Time POC ABG pH POC ABG pCO2 POC ABG pO2 Sodium 148 H Potassium Chloride 112.8 H Carbon Dioxide BUN 33 H Creatinine 0.4 L Glucose 121 H POC Glucose 126 H 149 H Calcium Magnesium Direct Bilirubin AST 160 H ALT 189 H Alkaline Phosphatase 166 H Total Creatine Kinase CK-MB (CK-2) CK-MB (CK-2) Rel Index Troponin T C-Reactive Protein Total Protein Albumin 2.6 L Triglycerides Ur Specific [place] Urine WBC (Auto) Miscellaneous Test 04/13/17 04/14/17 04/14/17 17:45 00:20 00:45 WBC RBC Hgb Hct MCV MCH RDW Plt Count Lymph % (Auto) [place] % (Auto) Eos % (Auto) Baso % (Auto) Lymph # Baso # Seg Neutrophils % Lymphocytes % (Manual) Monocytes % (Manual) Nucleated RBC % Seg Neutrophils # Seg Neutrophils # Man Monocytes # (Manual) PT INR Activated Clotting Time POC ABG pH POC ABG pCO2 POC ABG pO2 Sodium Potassium Chloride Carbon Dioxide BUN Creatinine Glucose POC Glucose 130 H 144 H 144 H Calcium Magnesium Direct Bilirubin AST ALT Alkaline Phosphatase Total Creatine Kinase CK-MB (CK-2) CK-MB (CK-2) Rel Index Troponin T C-Reactive Protein Total Protein Albumin Triglycerides Ur Specific [place] Urine WBC (Auto) Miscellaneous Test 04/14/17 04/14/17 04/14/17 05:40 11:06 11:31 WBC RBC Hgb Hct MCV MCH RDW Plt Count Lymph % (Auto) [place] % (Auto) Eos % (Auto) Baso % (Auto) Lymph # Baso # Seg Neutrophils % Lymphocytes % (Manual) Monocytes % (Manual) Nucleated RBC % Seg Neutrophils # Seg Neutrophils # Man Monocytes # (Manual) PT INR Activated Clotting Time POC ABG pH POC ABG pCO2 POC ABG pO2 Sodium Potassium Chloride Carbon Dioxide BUN Creatinine Glucose POC Glucose 139 H 123 H Calcium Magnesium Direct Bilirubin AST ALT Alkaline Phosphatase Total Creatine Kinase CK-MB (CK-2) CK-MB (CK-2) Rel Index Troponin T C-Reactive Protein Total Protein Albumin Triglycerides Ur Specific [place] 1.033 H Urine WBC (Auto) > 182.0 H Miscellaneous Test 04/14/17 04/14/17 04/15/17 18:00 23:52 05:15 WBC 12.5 H RBC 3.38 L Hgb 10.6 L Hct 32.7 L MCV 97 H MCH RDW Plt Count 107 L Lymph % (Auto) 8.7 L [place] % (Auto) Eos % (Auto) Baso % (Auto) Lymph # 1.1 L Baso # Seg Neutrophils % 86.1 H Lymphocytes % (Manual) Monocytes % (Manual) Nucleated RBC % Seg Neutrophils # 10.7 H Seg Neutrophils # Man Monocytes # (Manual) PT INR Activated Clotting Time POC ABG pH POC ABG pCO2 POC ABG pO2 Sodium Potassium Chloride Carbon Dioxide BUN Creatinine Glucose POC Glucose 133 H 133 H Calcium Magnesium Direct Bilirubin AST ALT Alkaline Phosphatase Total Creatine Kinase CK-MB (CK-2) CK-MB (CK-2) Rel Index Troponin T C-Reactive Protein Total Protein Albumin Triglycerides Ur Specific [place] Urine WBC (Auto) Miscellaneous Test 04/15/17 04/15/17 04/15/17 05:15 05:25 11:50 WBC RBC Hgb Hct MCV MCH RDW Plt Count Lymph % (Auto) [place] % (Auto) Eos % (Auto) Baso % (Auto) Lymph # Baso # Seg Neutrophils % Lymphocytes % (Manual) Monocytes % (Manual) Nucleated RBC % Seg Neutrophils # Seg Neutrophils # Man Monocytes # (Manual) PT INR Activated Clotting Time POC ABG pH POC ABG pCO2 POC ABG pO2 Sodium 149 H Potassium 3.5 L Chloride 114.1 H Carbon Dioxide 21 L BUN 29 H Creatinine 0.4 L Glucose 128 H POC Glucose 133 H 107 H Calcium 8.3 L Magnesium Direct Bilirubin 0.4 H AST 149 H ALT 182 H Alkaline Phosphatase 143 H Total Creatine Kinase CK-MB (CK-2) CK-MB (CK-2) Rel Index Troponin T C-Reactive Protein Total Protein Albumin 2.5 L Triglycerides Ur Specific [place] Urine WBC (Auto) Miscellaneous Test 04/15/17 04/16/17 04/16/17 16:55 00:02 03:17 WBC RBC 3.39 L Hgb 10.5 L Hct 32.4 L MCV 96 H MCH RDW Plt Count 106 L Lymph % (Auto) 6.7 L [place] % (Auto) Eos % (Auto) Baso % (Auto) Lymph # 0.6 L Baso # Seg Neutrophils % 86.8 H Lymphocytes % (Manual) Monocytes % (Manual) Nucleated RBC % Seg Neutrophils # 8.2 H Seg Neutrophils # Man Monocytes # (Manual) PT INR Activated Clotting Time POC ABG pH POC ABG pCO2 POC ABG pO2 Sodium Potassium Chloride Carbon Dioxide BUN Creatinine Glucose POC Glucose 146 H 148 H Calcium Magnesium Direct Bilirubin AST ALT Alkaline Phosphatase Total Creatine Kinase CK-MB (CK-2) CK-MB (CK-2) Rel Index Troponin T C-Reactive Protein Total Protein Albumin Triglycerides Ur Specific [place] Urine WBC (Auto) Miscellaneous Test 04/16/17 04/16/17 04/16/17 03:17 05:19 11:13 WBC RBC Hgb Hct MCV MCH RDW Plt Count Lymph % (Auto) [place] % (Auto) Eos % (Auto) Baso % (Auto) Lymph # Baso # Seg Neutrophils % Lymphocytes % (Manual) Monocytes % (Manual) Nucleated RBC % Seg Neutrophils # Seg Neutrophils # Man Monocytes # (Manual) PT INR Activated Clotting Time POC ABG pH POC ABG pCO2 POC ABG pO2 Sodium 149 H Potassium Chloride 111.1 H Carbon Dioxide 20 L BUN 27 H Creatinine 0.3 L Glucose 156 H POC Glucose 171 H 169 H Calcium 8.3 L Magnesium Direct Bilirubin AST ALT Alkaline Phosphatase Total Creatine Kinase CK-MB (CK-2) CK-MB (CK-2) Rel Index Troponin T C-Reactive Protein Total Protein Albumin Triglycerides Ur Specific [place] Urine WBC (Auto) Miscellaneous Test 04/16/17 04/17/17 04/17/17 17:03 00:00 05:09 WBC RBC Hgb Hct MCV MCH RDW Plt Count Lymph % (Auto) [place] % (Auto) Eos % (Auto) Baso % (Auto) Lymph # Baso # Seg Neutrophils % Lymphocytes % (Manual) Monocytes % (Manual) Nucleated RBC % Seg Neutrophils # Seg Neutrophils # Man Monocytes # (Manual) PT INR Activated Clotting Time POC ABG pH POC ABG pCO2 POC ABG pO2 Sodium Potassium Chloride Carbon Dioxide BUN Creatinine Glucose POC Glucose 151 H 165 H 145 H Calcium Magnesium Direct Bilirubin AST ALT Alkaline Phosphatase Total Creatine Kinase CK-MB (CK-2) CK-MB (CK-2) Rel Index Troponin T C-Reactive Protein Total Protein Albumin Triglycerides Ur Specific [place] Urine WBC (Auto) Miscellaneous Test 04/17/17 04/17/17 04/18/17 11:38 17:47 00:01 WBC RBC Hgb Hct MCV MCH RDW Plt Count Lymph % (Auto) [place] % (Auto) Eos % (Auto) Baso % (Auto) Lymph # Baso # Seg Neutrophils % Lymphocytes % (Manual) Monocytes % (Manual) Nucleated RBC % Seg Neutrophils # Seg Neutrophils # Man Monocytes # (Manual) PT INR Activated Clotting Time POC ABG pH POC ABG pCO2 POC ABG pO2 Sodium Potassium Chloride Carbon Dioxide BUN Creatinine Glucose POC Glucose 170 H 161 H 131 H Calcium Magnesium Direct Bilirubin AST ALT Alkaline Phosphatase Total Creatine Kinase CK-MB (CK-2) CK-MB (CK-2) Rel Index Troponin T C-Reactive Protein Total Protein Albumin Triglycerides Ur Specific [place] Urine WBC (Auto) Miscellaneous Test 04/18/17 04/18/17 04/18/17 03:55 03:55 05:30 WBC RBC 3.05 L Hgb 9.8 L Hct 29.0 L MCV 95 H MCH RDW Plt Count 113 L Lymph % (Auto) [place] % (Auto) Eos % (Auto) 5.3 H Baso % (Auto) Lymph # Baso # Seg Neutrophils % 71.5 H Lymphocytes % (Manual) Monocytes % (Manual) Nucleated RBC % Seg Neutrophils # Seg Neutrophils # Man Monocytes # (Manual) PT INR Activated Clotting Time POC ABG pH 7.460 H POC ABG pCO2 30.8 L POC ABG pO2 129 H Sodium Potassium Chloride Carbon Dioxide 21 L BUN 25 H Creatinine 0.4 L Glucose 123 H POC Glucose Calcium 8.3 L Magnesium Direct Bilirubin AST ALT Alkaline Phosphatase Total Creatine Kinase CK-MB (CK-2) CK-MB (CK-2) Rel Index Troponin T C-Reactive Protein Total Protein Albumin Triglycerides Ur Specific [place] Urine WBC (Auto) Miscellaneous Test 04/18/17 04/18/17 04/19/17 17:10 23:40 04:36 WBC RBC 3.21 L Hgb 10.2 L Hct 30.4 L MCV 95 H MCH RDW Plt Count 131 L Lymph % (Auto) 12.1 L [place] % (Auto) Eos % (Auto) 4.7 H Baso % (Auto) 2.4 H Lymph # 0.9 L Baso # 0.2 H Seg Neutrophils % 75.0 H Lymphocytes % (Manual) Monocytes % (Manual) Nucleated RBC % Seg Neutrophils # Seg Neutrophils # Man Monocytes # (Manual) PT INR Activated Clotting Time POC ABG pH POC ABG pCO2 POC ABG pO2 Sodium Potassium Chloride Carbon Dioxide BUN Creatinine Glucose POC Glucose 135 H 157 H Calcium Magnesium Direct Bilirubin AST ALT Alkaline Phosphatase Total Creatine Kinase CK-MB (CK-2) CK-MB (CK-2) Rel Index Troponin T C-Reactive Protein Total Protein Albumin Triglycerides Ur Specific [place] Urine WBC (Auto) Miscellaneous Test 04/19/17 04/19/17 04/19/17 04:36 05:12 06:50 WBC RBC Hgb Hct MCV MCH RDW Plt Count Lymph % (Auto) [place] % (Auto) Eos % (Auto) Baso % (Auto) Lymph # Baso # Seg Neutrophils % Lymphocytes % (Manual) Monocytes % (Manual) Nucleated RBC % Seg Neutrophils # Seg Neutrophils # Man Monocytes # (Manual) PT INR Activated Clotting Time POC ABG pH 7.516 H POC ABG pCO2 28.0 L POC ABG pO2 Sodium Potassium Chloride Carbon Dioxide 21 L BUN 23 H Creatinine 0.2 L Glucose 137 H POC Glucose 131 H Calcium 7.9 L Magnesium Direct Bilirubin AST ALT Alkaline Phosphatase Total Creatine Kinase CK-MB (CK-2) CK-MB (CK-2) Rel Index Troponin T C-Reactive Protein Total Protein Albumin Triglycerides Ur Specific [place] Urine WBC (Auto) Miscellaneous Test 04/19/17 04/19/17 04/20/17 12:36 17:42 00:12 WBC RBC Hgb Hct MCV MCH RDW Plt Count Lymph % (Auto) [place] % (Auto) Eos % (Auto) Baso % (Auto) Lymph # Baso # Seg Neutrophils % Lymphocytes % (Manual) Monocytes % (Manual) Nucleated RBC % Seg Neutrophils # Seg Neutrophils # Man Monocytes # (Manual) PT INR Activated Clotting Time POC ABG pH POC ABG pCO2 POC ABG pO2 Sodium Potassium Chloride Carbon Dioxide BUN Creatinine Glucose POC Glucose 128 H 140 H 132 H Calcium Magnesium Direct Bilirubin AST ALT Alkaline Phosphatase Total Creatine Kinase CK-MB (CK-2) CK-MB (CK-2) Rel Index Troponin T C-Reactive Protein Total Protein Albumin Triglycerides Ur Specific [place] Urine WBC (Auto) Miscellaneous Test 04/20/17 04/20/17 04/20/17 03:35 03:35 05:10 WBC RBC 3.34 L Hgb 10.4 L Hct 31.6 L MCV 95 H MCH RDW Plt Count Lymph % (Auto) 12.9 L [place] % (Auto) Eos % (Auto) Baso % (Auto) Lymph # Baso # Seg Neutrophils % 77.3 H Lymphocytes % (Manual) Monocytes % (Manual) Nucleated RBC % Seg Neutrophils # Seg Neutrophils # Man Monocytes # (Manual) PT INR Activated Clotting Time POC ABG pH POC ABG pCO2 POC ABG pO2 Sodium Potassium Chloride Carbon Dioxide BUN Creatinine 0.3 L Glucose 155 H POC Glucose 135 H Calcium 7.8 L Magnesium Direct Bilirubin AST ALT Alkaline Phosphatase Total Creatine Kinase CK-MB (CK-2) CK-MB (CK-2) Rel Index Troponin T C-Reactive Protein Total Protein Albumin Triglycerides Ur Specific [place] Urine WBC (Auto) Miscellaneous Test 04/20/17 04/20/17 04/21/17 12:49 18:21 00:05 WBC RBC Hgb Hct MCV MCH RDW Plt Count Lymph % (Auto) [place] % (Auto) Eos % (Auto) Baso % (Auto) Lymph # Baso # Seg Neutrophils % Lymphocytes % (Manual) Monocytes % (Manual) Nucleated RBC % Seg Neutrophils # Seg Neutrophils # Man Monocytes # (Manual) PT INR Activated Clotting Time POC ABG pH POC ABG pCO2 POC ABG pO2 Sodium Potassium Chloride Carbon Dioxide BUN Creatinine Glucose POC Glucose 155 H 165 H 141 H Calcium Magnesium Direct Bilirubin AST ALT Alkaline Phosphatase Total Creatine Kinase CK-MB (CK-2) CK-MB (CK-2) Rel Index Troponin T C-Reactive Protein Total Protein Albumin Triglycerides Ur Specific [place] Urine WBC (Auto) Miscellaneous Test 04/21/17 04/21/17 04/21/17 06:00 12:11 17:04 WBC RBC Hgb Hct MCV MCH RDW Plt Count Lymph % (Auto) [place] % (Auto) Eos % (Auto) Baso % (Auto) Lymph # Baso # Seg Neutrophils % Lymphocytes % (Manual) Monocytes % (Manual) Nucleated RBC % Seg Neutrophils # Seg Neutrophils # Man Monocytes # (Manual) PT INR Activated Clotting Time POC ABG pH POC ABG pCO2 POC ABG pO2 Sodium Potassium Chloride Carbon Dioxide BUN Creatinine Glucose POC Glucose 152 H 165 H 156 H Calcium Magnesium Direct Bilirubin AST ALT Alkaline Phosphatase Total Creatine Kinase CK-MB (CK-2) CK-MB (CK-2) Rel Index Troponin T C-Reactive Protein Total Protein Albumin Triglycerides Ur Specific [place] Urine WBC (Auto) Miscellaneous Test 04/21/17 04/21/17 04/22/17 22:00 23:59 05:49 WBC RBC Hgb Hct MCV MCH RDW Plt Count Lymph % (Auto) [place] % (Auto) Eos % (Auto) Baso % (Auto) Lymph # Baso # Seg Neutrophils % Lymphocytes % (Manual) Monocytes % (Manual) Nucleated RBC % Seg Neutrophils # Seg Neutrophils # Man Monocytes # (Manual) PT INR Activated Clotting Time POC ABG pH POC ABG pCO2 POC ABG pO2 Sodium Potassium Chloride Carbon Dioxide BUN Creatinine Glucose POC Glucose 166 H 173 H Calcium Magnesium Direct Bilirubin AST ALT Alkaline Phosphatase Total Creatine Kinase CK-MB (CK-2) CK-MB (CK-2) Rel Index Troponin T C-Reactive Protein Total Protein Albumin Triglycerides Ur Specific [place] Urine WBC (Auto) 10.0 H Miscellaneous Test 04/22/17 04/22/17 04/23/17 11:11 18:04 00:37 WBC RBC Hgb Hct MCV MCH RDW Plt Count Lymph % (Auto) [place] % (Auto) Eos % (Auto) Baso % (Auto) Lymph # Baso # Seg Neutrophils % Lymphocytes % (Manual) Monocytes % (Manual) Nucleated RBC % Seg Neutrophils # Seg Neutrophils # Man Monocytes # (Manual) PT INR Activated Clotting Time POC ABG pH POC ABG pCO2 POC ABG pO2 Sodium Potassium Chloride Carbon Dioxide BUN Creatinine Glucose POC Glucose 172 H 140 H 135 H Calcium Magnesium Direct Bilirubin AST ALT Alkaline Phosphatase Total Creatine Kinase CK-MB (CK-2) CK-MB (CK-2) Rel Index Troponin T C-Reactive Protein Total Protein Albumin Triglycerides Ur Specific [place] Urine WBC (Auto) Miscellaneous Test 04/23/17 04/23/17 04/23/17 05:33 06:20 11:10 WBC RBC 3.19 L Hgb 9.9 L Hct 30.0 L MCV MCH RDW Plt Count Lymph % (Auto) 8.0 L [place] % (Auto) Eos % (Auto) Baso % (Auto) Lymph # 0.8 L Baso # Seg Neutrophils % 84.5 H Lymphocytes % (Manual) Monocytes % (Manual) Nucleated RBC % Seg Neutrophils # 8.2 H Seg Neutrophils # Man Monocytes # (Manual) PT INR Activated Clotting Time POC ABG pH POC ABG pCO2 POC ABG pO2 Sodium Potassium Chloride Carbon Dioxide BUN Creatinine Glucose POC Glucose 134 H 134 H Calcium Magnesium Direct Bilirubin AST ALT Alkaline Phosphatase Total Creatine Kinase CK-MB (CK-2) CK-MB (CK-2) Rel Index Troponin T C-Reactive Protein Total Protein Albumin Triglycerides Ur Specific [place] Urine WBC (Auto) Miscellaneous Test 04/23/17 04/24/17 04/24/17 17:26 00:53 06:46 WBC RBC Hgb Hct MCV MCH RDW Plt Count Lymph % (Auto) [place] % (Auto) Eos % (Auto) Baso % (Auto) Lymph # Baso # Seg Neutrophils % Lymphocytes % (Manual) Monocytes % (Manual) Nucleated RBC % Seg Neutrophils # Seg Neutrophils # Man Monocytes # (Manual) PT INR Activated Clotting Time POC ABG pH POC ABG pCO2 POC ABG pO2 Sodium Potassium Chloride Carbon Dioxide BUN Creatinine Glucose POC Glucose 164 H 146 H 125 H Calcium Magnesium Direct Bilirubin AST ALT Alkaline Phosphatase Total Creatine Kinase CK-MB (CK-2) CK-MB (CK-2) Rel Index Troponin T C-Reactive Protein Total Protein Albumin Triglycerides Ur Specific [place] Urine WBC (Auto) Miscellaneous Test 04/24/17 04/24/17 04/24/17 11:55 17:50 23:36 WBC RBC Hgb Hct MCV MCH RDW Plt Count Lymph % (Auto) [place] % (Auto) Eos % (Auto) Baso % (Auto) Lymph # Baso # Seg Neutrophils % Lymphocytes % (Manual) Monocytes % (Manual) Nucleated RBC % Seg Neutrophils # Seg Neutrophils # Man Monocytes # (Manual) PT INR Activated Clotting Time POC ABG pH POC ABG pCO2 POC ABG pO2 Sodium Potassium Chloride Carbon Dioxide BUN Creatinine Glucose POC Glucose 156 H 146 H 131 H Calcium Magnesium Direct Bilirubin AST ALT Alkaline Phosphatase Total Creatine Kinase CK-MB (CK-2) CK-MB (CK-2) Rel Index Troponin T C-Reactive Protein Total Protein Albumin Triglycerides Ur Specific [place] Urine WBC (Auto) Miscellaneous Test 04/25/17 04/25/17 04/25/17 04:51 05:16 07:07 WBC RBC Hgb Hct MCV MCH RDW Plt Count Lymph % (Auto) [place] % (Auto) Eos % (Auto) Baso % (Auto) Lymph # Baso # Seg Neutrophils % Lymphocytes % (Manual) Monocytes % (Manual) Nucleated RBC % Seg Neutrophils # Seg Neutrophils # Man Monocytes # (Manual) PT INR Activated Clotting Time POC ABG pH POC ABG pCO2 POC ABG pO2 Sodium Potassium Chloride Carbon Dioxide BUN Creatinine Glucose POC Glucose 139 H Calcium Magnesium Direct Bilirubin AST 105 H ALT 204 H Alkaline Phosphatase 189 H Total Creatine Kinase CK-MB (CK-2) CK-MB (CK-2) Rel Index Troponin T C-Reactive Protein Total Protein Albumin 2.4 L Triglycerides Ur Specific [place] Urine WBC (Auto) Miscellaneous Test Flexitest 1 H 04/25/17 04/25/17 04/25/17 12:29 17:23 23:32 WBC RBC Hgb Hct MCV MCH RDW Plt Count Lymph % (Auto) [place] % (Auto) Eos % (Auto) Baso % (Auto) Lymph # Baso # Seg Neutrophils % Lymphocytes % (Manual) Monocytes % (Manual) Nucleated RBC % Seg Neutrophils # Seg Neutrophils # Man Monocytes # (Manual) PT INR Activated Clotting Time POC ABG pH POC ABG pCO2 POC ABG pO2 Sodium Potassium Chloride Carbon Dioxide BUN Creatinine Glucose POC Glucose 132 H 133 H 128 H Calcium Magnesium Direct Bilirubin AST ALT Alkaline Phosphatase Total Creatine Kinase CK-MB (CK-2) CK-MB (CK-2) Rel Index Troponin T C-Reactive Protein Total Protein Albumin Triglycerides Ur Specific [place] Urine WBC (Auto) Miscellaneous Test 04/26/17 04/26/17 04/26/17 05:24 11:28 17:09 WBC RBC Hgb Hct MCV MCH RDW Plt Count Lymph % (Auto) [place] % (Auto) Eos % (Auto) Baso % (Auto) Lymph # Baso # Seg Neutrophils % Lymphocytes % (Manual) Monocytes % (Manual) Nucleated RBC % Seg Neutrophils # Seg Neutrophils # Man Monocytes # (Manual) PT INR Activated Clotting Time POC ABG pH POC ABG pCO2 POC ABG pO2 Sodium Potassium Chloride Carbon Dioxide BUN Creatinine Glucose POC Glucose 132 H 146 H 141 H Calcium Magnesium Direct Bilirubin AST ALT Alkaline Phosphatase Total Creatine Kinase CK-MB (CK-2) CK-MB (CK-2) Rel Index Troponin T C-Reactive Protein Total Protein Albumin Triglycerides Ur Specific [place] Urine WBC (Auto) Miscellaneous Test 04/26/17 04/27/17 04/27/17 23:52 05:40 05:40 WBC RBC 3.22 L Hgb 10.0 L Hct 29.9 L MCV MCH RDW Plt Count Lymph % (Auto) [place] % (Auto) Eos % (Auto) Baso % (Auto) Lymph # Baso # Seg Neutrophils % 76.6 H Lymphocytes % (Manual) Monocytes % (Manual) Nucleated RBC % Seg Neutrophils # Seg Neutrophils # Man Monocytes # (Manual) PT INR Activated Clotting Time POC ABG pH POC ABG pCO2 POC ABG pO2 Sodium Potassium Chloride Carbon Dioxide BUN Creatinine Glucose POC Glucose 140 H Calcium Magnesium Direct Bilirubin AST 66 H ALT 137 H Alkaline Phosphatase 169 H Total Creatine Kinase CK-MB (CK-2) CK-MB (CK-2) Rel Index Troponin T C-Reactive Protein Total Protein 6.2 L Albumin 2.6 L Triglycerides Ur Specific [place] Urine WBC (Auto) Miscellaneous Test 04/27/17 04/27/17 04/27/17 05:40 06:10 11:13 WBC RBC Hgb Hct MCV MCH RDW Plt Count Lymph % (Auto) [place] % (Auto) Eos % (Auto) Baso % (Auto) Lymph # Baso # Seg Neutrophils % Lymphocytes % (Manual) Monocytes % (Manual) Nucleated RBC % Seg Neutrophils # Seg Neutrophils # Man Monocytes # (Manual) PT INR Activated Clotting Time POC ABG pH POC ABG pCO2 POC ABG pO2 Sodium Potassium Chloride Carbon Dioxide BUN Creatinine 0.2 L Glucose 139 H POC Glucose 130 H 151 H Calcium Magnesium Direct Bilirubin AST ALT Alkaline Phosphatase Total Creatine Kinase CK-MB (CK-2) CK-MB (CK-2) Rel Index Troponin T C-Reactive Protein Total Protein Albumin Triglycerides Ur Specific [place] Urine WBC (Auto) Miscellaneous Test 04/27/17 04/27/17 04/28/17 17:37 23:19 05:24 WBC RBC Hgb Hct MCV MCH RDW Plt Count Lymph % (Auto) [place] % (Auto) Eos % (Auto) Baso % (Auto) Lymph # Baso # Seg Neutrophils % Lymphocytes % (Manual) Monocytes % (Manual) Nucleated RBC % Seg Neutrophils # Seg Neutrophils # Man Monocytes # (Manual) PT INR Activated Clotting Time POC ABG pH POC ABG pCO2 POC ABG pO2 Sodium Potassium Chloride Carbon Dioxide BUN Creatinine Glucose POC Glucose 159 H 130 H 132 H Calcium Magnesium Direct Bilirubin AST ALT Alkaline Phosphatase Total Creatine Kinase CK-MB (CK-2) CK-MB (CK-2) Rel Index Troponin T C-Reactive Protein Total Protein Albumin Triglycerides Ur Specific [place] Urine WBC (Auto) Miscellaneous Test 04/28/17 04/28/17 04/28/17 11:15 17:38 23:23 WBC RBC Hgb Hct MCV MCH RDW Plt Count Lymph % (Auto) [place] % (Auto) Eos % (Auto) Baso % (Auto) Lymph # Baso # Seg Neutrophils % Lymphocytes % (Manual) Monocytes % (Manual) Nucleated RBC % Seg Neutrophils # Seg Neutrophils # Man Monocytes # (Manual) PT INR Activated Clotting Time POC ABG pH POC ABG pCO2 POC ABG pO2 Sodium Potassium Chloride Carbon Dioxide BUN Creatinine Glucose POC Glucose 162 H 133 H 138 H Calcium Magnesium Direct Bilirubin AST ALT Alkaline Phosphatase Total Creatine Kinase CK-MB (CK-2) CK-MB (CK-2) Rel Index Troponin T C-Reactive Protein Total Protein Albumin Triglycerides Ur Specific [place] Urine WBC (Auto) Miscellaneous Test 04/29/17 04/29/17 04/29/17 05:15 12:55 17:21 WBC RBC Hgb Hct MCV MCH RDW Plt Count Lymph % (Auto) [place] % (Auto) Eos % (Auto) Baso % (Auto) Lymph # Baso # Seg Neutrophils % Lymphocytes % (Manual) Monocytes % (Manual) Nucleated RBC % Seg Neutrophils # Seg Neutrophils # Man Monocytes # (Manual) PT INR Activated Clotting Time POC ABG pH POC ABG pCO2 POC ABG pO2 Sodium Potassium Chloride Carbon Dioxide BUN Creatinine Glucose POC Glucose 135 H 127 H 138 H Calcium Magnesium Direct Bilirubin AST ALT Alkaline Phosphatase Total Creatine Kinase CK-MB (CK-2) CK-MB (CK-2) Rel Index Troponin T C-Reactive Protein Total Protein Albumin Triglycerides Ur Specific [place] Urine WBC (Auto) Miscellaneous Test 04/29/17 04/30/17 04/30/17 23:52 04:55 12:22 WBC RBC Hgb Hct MCV MCH RDW Plt Count Lymph % (Auto) [place] % (Auto) Eos % (Auto) Baso % (Auto) Lymph # Baso # Seg Neutrophils % Lymphocytes % (Manual) Monocytes % (Manual) Nucleated RBC % Seg Neutrophils # Seg Neutrophils # Man Monocytes # (Manual) PT INR Activated Clotting Time POC ABG pH POC ABG pCO2 POC ABG pO2 Sodium Potassium Chloride Carbon Dioxide BUN Creatinine Glucose POC Glucose 142 H 146 H 132 H Calcium Magnesium Direct Bilirubin AST ALT Alkaline Phosphatase Total Creatine Kinase CK-MB (CK-2) CK-MB (CK-2) Rel Index Troponin T C-Reactive Protein Total Protein Albumin Triglycerides Ur Specific [place] Urine WBC (Auto) Miscellaneous Test 04/30/17 04/30/17 04/30/17 14:25 17:47 18:20 WBC RBC Hgb Hct MCV MCH RDW Plt Count Lymph % (Auto) [place] % (Auto) Eos % (Auto) Baso % (Auto) Lymph # Baso # Seg Neutrophils % Lymphocytes % (Manual) Monocytes % (Manual) Nucleated RBC % Seg Neutrophils # Seg Neutrophils # Man Monocytes # (Manual) PT INR Activated Clotting Time POC ABG pH 7.551 H POC ABG pCO2 32.7 L POC ABG pO2 Sodium Potassium Chloride Carbon Dioxide BUN 21 H Creatinine 0.2 L Glucose 141 H POC Glucose 139 H Calcium Magnesium Direct Bilirubin AST ALT Alkaline Phosphatase Total Creatine Kinase CK-MB (CK-2) CK-MB (CK-2) Rel Index Troponin T C-Reactive Protein Total Protein Albumin Triglycerides Ur Specific [place] Urine WBC (Auto) Miscellaneous Test 05/01/17 05/01/17 05/01/17 01:26 05:30 05:30 WBC RBC 3.49 L Hgb 10.3 L Hct 31.9 L MCV MCH RDW Plt Count Lymph % (Auto) [place] % (Auto) 8.1 H Eos % (Auto) Baso % (Auto) Lymph # Baso # Seg Neutrophils % 71.3 H Lymphocytes % (Manual) Monocytes % (Manual) Nucleated RBC % Seg Neutrophils # Seg Neutrophils # Man Monocytes # (Manual) PT INR Activated Clotting Time POC ABG pH POC ABG pCO2 POC ABG pO2 Sodium 136 L Potassium Chloride 97.6 L Carbon Dioxide BUN Creatinine 0.2 L Glucose 123 H POC Glucose 116 H Calcium Magnesium Direct Bilirubin AST 71 H ALT 125 H Alkaline Phosphatase 158 H Total Creatine Kinase CK-MB (CK-2) CK-MB (CK-2) Rel Index Troponin T C-Reactive Protein Total Protein Albumin 2.6 L Triglycerides Ur Specific [place] Urine WBC (Auto) Miscellaneous Test 05/01/17 05/01/17 05/02/17 11:59 17:23 00:08 WBC RBC Hgb Hct MCV MCH RDW Plt Count Lymph % (Auto) [place] % (Auto) Eos % (Auto) Baso % (Auto) Lymph # Baso # Seg Neutrophils % Lymphocytes % (Manual) Monocytes % (Manual) Nucleated RBC % Seg Neutrophils # Seg Neutrophils # Man Monocytes # (Manual) PT INR Activated Clotting Time POC ABG pH POC ABG pCO2 POC ABG pO2 Sodium Potassium Chloride Carbon Dioxide BUN Creatinine Glucose POC Glucose 118 H 144 H 122 H Calcium Magnesium Direct Bilirubin AST ALT Alkaline Phosphatase Total Creatine Kinase CK-MB (CK-2) CK-MB (CK-2) Rel Index Troponin T C-Reactive Protein Total Protein Albumin Triglycerides Ur Specific [place] Urine WBC (Auto) Miscellaneous Test 05/02/17 05/02/17 05/02/17 05:50 11:21 17:48 WBC RBC Hgb Hct MCV MCH RDW Plt Count Lymph % (Auto) [place] % (Auto) Eos % (Auto) Baso % (Auto) Lymph # Baso # Seg Neutrophils % Lymphocytes % (Manual) Monocytes % (Manual) Nucleated RBC % Seg Neutrophils # Seg Neutrophils # Man Monocytes # (Manual) PT INR Activated Clotting Time POC ABG pH POC ABG pCO2 POC ABG pO2 Sodium Potassium Chloride Carbon Dioxide BUN Creatinine Glucose POC Glucose 120 H 121 H 140 H Calcium Magnesium Direct Bilirubin AST ALT Alkaline Phosphatase Total Creatine Kinase CK-MB (CK-2) CK-MB (CK-2) Rel Index Troponin T C-Reactive Protein Total Protein Albumin Triglycerides Ur Specific [place] Urine WBC (Auto) Miscellaneous Test 05/02/17 05/03/17 05/03/17 23:12 05:35 11:52 WBC RBC Hgb Hct MCV MCH RDW Plt Count Lymph % (Auto) [place] % (Auto) Eos % (Auto) Baso % (Auto) Lymph # Baso # Seg Neutrophils % Lymphocytes % (Manual) Monocytes % (Manual) Nucleated RBC % Seg Neutrophils # Seg Neutrophils # Man Monocytes # (Manual) PT INR Activated Clotting Time POC ABG pH POC ABG pCO2 POC ABG pO2 Sodium Potassium Chloride Carbon Dioxide BUN Creatinine Glucose POC Glucose 128 H 113 H 126 H Calcium Magnesium Direct Bilirubin AST ALT Alkaline Phosphatase Total Creatine Kinase CK-MB (CK-2) CK-MB (CK-2) Rel Index Troponin T C-Reactive Protein Total Protein Albumin Triglycerides Ur Specific [place] Urine WBC (Auto) Miscellaneous Test 05/03/17 05/03/17 05/04/17 17:29 23:26 04:55 WBC RBC Hgb Hct MCV MCH RDW Plt Count Lymph % (Auto) [place] % (Auto) Eos % (Auto) Baso % (Auto) Lymph # Baso # Seg Neutrophils % Lymphocytes % (Manual) Monocytes % (Manual) Nucleated RBC % Seg Neutrophils # Seg Neutrophils # Man Monocytes # (Manual) PT INR Activated Clotting Time POC ABG pH POC ABG pCO2 POC ABG pO2 Sodium Potassium Chloride Carbon Dioxide BUN Creatinine Glucose POC Glucose 141 H 129 H 126 H Calcium Magnesium Direct Bilirubin AST ALT Alkaline Phosphatase Total Creatine Kinase CK-MB (CK-2) CK-MB (CK-2) Rel Index Troponin T C-Reactive Protein Total Protein Albumin Triglycerides Ur Specific [place] Urine WBC (Auto) Miscellaneous Test 05/04/17 05/04/17 05/05/17 12:09 17:46 00:06 WBC RBC Hgb Hct MCV MCH RDW Plt Count Lymph % (Auto) [place] % (Auto) Eos % (Auto) Baso % (Auto) Lymph # Baso # Seg Neutrophils % Lymphocytes % (Manual) Monocytes % (Manual) Nucleated RBC % Seg Neutrophils # Seg Neutrophils # Man Monocytes # (Manual) PT INR Activated Clotting Time POC ABG pH POC ABG pCO2 POC ABG pO2 Sodium Potassium Chloride Carbon Dioxide BUN Creatinine Glucose POC Glucose 125 H 125 H 110 H Calcium Magnesium Direct Bilirubin AST ALT Alkaline Phosphatase Total Creatine Kinase CK-MB (CK-2) CK-MB (CK-2) Rel Index Troponin T C-Reactive Protein Total Protein Albumin Triglycerides Ur Specific [place] Urine WBC (Auto) Miscellaneous Test 05/05/17 05/05/17 05/05/17 05:48 11:41 16:19 WBC RBC Hgb Hct MCV MCH RDW Plt Count Lymph % (Auto) [place] % (Auto) Eos % (Auto) Baso % (Auto) Lymph # Baso # Seg Neutrophils % Lymphocytes % (Manual) Monocytes % (Manual) Nucleated RBC % Seg Neutrophils # Seg Neutrophils # Man Monocytes # (Manual) PT INR Activated Clotting Time POC ABG pH POC ABG pCO2 POC ABG pO2 Sodium Potassium Chloride Carbon Dioxide BUN Creatinine Glucose POC Glucose 124 H 122 H 120 H Calcium Magnesium Direct Bilirubin AST ALT Alkaline Phosphatase Total Creatine Kinase CK-MB (CK-2) CK-MB (CK-2) Rel Index Troponin T C-Reactive Protein Total Protein Albumin Triglycerides Ur Specific [place] Urine WBC (Auto) Miscellaneous Test 05/06/17 05/06/17 05/06/17 00:16 05:47 11:42 WBC RBC Hgb Hct MCV MCH RDW Plt Count Lymph % (Auto) [place] % (Auto) Eos % (Auto) Baso % (Auto) Lymph # Baso # Seg Neutrophils % Lymphocytes % (Manual) Monocytes % (Manual) Nucleated RBC % Seg Neutrophils # Seg Neutrophils # Man Monocytes # (Manual) PT INR Activated Clotting Time POC ABG pH POC ABG pCO2 POC ABG pO2 Sodium Potassium Chloride Carbon Dioxide BUN Creatinine Glucose POC Glucose 110 H 142 H 120 H Calcium Magnesium Direct Bilirubin AST ALT Alkaline Phosphatase Total Creatine Kinase CK-MB (CK-2) CK-MB (CK-2) Rel Index Troponin T C-Reactive Protein Total Protein Albumin Triglycerides Ur Specific [place] Urine WBC (Auto) Miscellaneous Test 05/06/17 05/07/17 05/07/17 17:46 00:07 05:28 WBC RBC Hgb Hct MCV MCH RDW Plt Count Lymph % (Auto) [place] % (Auto) Eos % (Auto) Baso % (Auto) Lymph # Baso # Seg Neutrophils % Lymphocytes % (Manual) Monocytes % (Manual) Nucleated RBC % Seg Neutrophils # Seg Neutrophils # Man Monocytes # (Manual) PT INR Activated Clotting Time POC ABG pH POC ABG pCO2 POC ABG pO2 Sodium Potassium Chloride Carbon Dioxide BUN Creatinine Glucose POC Glucose 127 H 145 H 124 H Calcium Magnesium Direct Bilirubin AST ALT Alkaline Phosphatase Total Creatine Kinase CK-MB (CK-2) CK-MB (CK-2) Rel Index Troponin T C-Reactive Protein Total Protein Albumin Triglycerides Ur Specific [place] Urine WBC (Auto) Miscellaneous Test 05/07/17 05/07/17 05/08/17 11:17 17:14 00:03 WBC RBC Hgb Hct MCV MCH RDW Plt Count Lymph % (Auto) [place] % (Auto) Eos % (Auto) Baso % (Auto) Lymph # Baso # Seg Neutrophils % Lymphocytes % (Manual) Monocytes % (Manual) Nucleated RBC % Seg Neutrophils # Seg Neutrophils # Man Monocytes # (Manual) PT INR Activated Clotting Time POC ABG pH POC ABG pCO2 POC ABG pO2 Sodium Potassium Chloride Carbon Dioxide BUN Creatinine Glucose POC Glucose 144 H 125 H 122 H Calcium Magnesium Direct Bilirubin AST ALT Alkaline Phosphatase Total Creatine Kinase CK-MB (CK-2) CK-MB (CK-2) Rel Index Troponin T C-Reactive Protein Total Protein Albumin Triglycerides Ur Specific [place] Urine WBC (Auto) Miscellaneous Test 05/08/17 05/08/17 05/08/17 05:43 12:07 18:02 WBC RBC Hgb Hct MCV MCH RDW Plt Count Lymph % (Auto) [place] % (Auto) Eos % (Auto) Baso % (Auto) Lymph # Baso # Seg Neutrophils % Lymphocytes % (Manual) Monocytes % (Manual) Nucleated RBC % Seg Neutrophils # Seg Neutrophils # Man Monocytes # (Manual) PT INR Activated Clotting Time POC ABG pH POC ABG pCO2 POC ABG pO2 Sodium Potassium Chloride Carbon Dioxide BUN Creatinine Glucose POC Glucose 117 H 114 H 129 H Calcium Magnesium Direct Bilirubin AST ALT Alkaline Phosphatase Total Creatine Kinase CK-MB (CK-2) CK-MB (CK-2) Rel Index Troponin T C-Reactive Protein Total Protein Albumin Triglycerides Ur Specific [place] Urine WBC (Auto) Miscellaneous Test 05/08/17 05/09/17 05/09/17 23:53 04:19 05:14 WBC RBC Hgb Hct MCV MCH RDW Plt Count Lymph % (Auto) [place] % (Auto) Eos % (Auto) Baso % (Auto) Lymph # Baso # Seg Neutrophils % Lymphocytes % (Manual) Monocytes % (Manual) Nucleated RBC % Seg Neutrophils # Seg Neutrophils # Man Monocytes # (Manual) PT INR Activated Clotting Time POC ABG pH 7.524 H POC ABG pCO2 34.7 L POC ABG pO2 107 H Sodium Potassium Chloride Carbon Dioxide BUN Creatinine Glucose POC Glucose 125 H 118 H Calcium Magnesium Direct Bilirubin AST ALT Alkaline Phosphatase Total Creatine Kinase CK-MB (CK-2) CK-MB (CK-2) Rel Index Troponin T C-Reactive Protein Total Protein Albumin Triglycerides Ur Specific [place] Urine WBC (Auto) Miscellaneous Test 05/10/17 05/11/17 05/11/17 23:54 05:48 23:50 WBC RBC Hgb Hct MCV MCH RDW Plt Count Lymph % (Auto) [place] % (Auto) Eos % (Auto) Baso % (Auto) Lymph # Baso # Seg Neutrophils % Lymphocytes % (Manual) Monocytes % (Manual) Nucleated RBC % Seg Neutrophils # Seg Neutrophils # Man Monocytes # (Manual) PT INR Activated Clotting Time POC ABG pH POC ABG pCO2 POC ABG pO2 Sodium Potassium Chloride Carbon Dioxide BUN Creatinine Glucose POC Glucose 126 H 137 H 130 H Calcium Magnesium Direct Bilirubin AST ALT Alkaline Phosphatase Total Creatine Kinase CK-MB (CK-2) CK-MB (CK-2) Rel Index Troponin T C-Reactive Protein Total Protein Albumin Triglycerides Ur Specific [place] Urine WBC (Auto) Miscellaneous Test 05/12/17 05/12/17 05/12/17 05:48 11:33 18:00 WBC RBC Hgb Hct MCV MCH RDW Plt Count Lymph % (Auto) [place] % (Auto) Eos % (Auto) Baso % (Auto) Lymph # Baso # Seg Neutrophils % Lymphocytes % (Manual) Monocytes % (Manual) Nucleated RBC % Seg Neutrophils # Seg Neutrophils # Man Monocytes # (Manual) PT INR Activated Clotting Time POC ABG pH POC ABG pCO2 POC ABG pO2 Sodium Potassium Chloride Carbon Dioxide BUN Creatinine Glucose POC Glucose 126 H 116 H 131 H Calcium Magnesium Direct Bilirubin AST ALT Alkaline Phosphatase Total Creatine Kinase CK-MB (CK-2) CK-MB (CK-2) Rel Index Troponin T C-Reactive Protein Total Protein Albumin Triglycerides Ur Specific [place] Urine WBC (Auto) Miscellaneous Test 05/14/17 05/15/17 05/15/17 11:45 11:27 17:42 WBC RBC Hgb Hct MCV MCH RDW Plt Count Lymph % (Auto) [place] % (Auto) Eos % (Auto) Baso % (Auto) Lymph # Baso # Seg Neutrophils % Lymphocytes % (Manual) Monocytes % (Manual) Nucleated RBC % Seg Neutrophils # Seg Neutrophils # Man Monocytes # (Manual) PT INR Activated Clotting Time POC ABG pH POC ABG pCO2 POC ABG pO2 Sodium Potassium Chloride Carbon Dioxide BUN Creatinine Glucose POC Glucose 123 H 129 H 125 H Calcium Magnesium Direct Bilirubin AST ALT Alkaline Phosphatase Total Creatine Kinase CK-MB (CK-2) CK-MB (CK-2) Rel Index Troponin T C-Reactive Protein Total Protein Albumin Triglycerides Ur Specific [place] Urine WBC (Auto) Miscellaneous Test 05/16/17 05/16/17 05/17/17 00:29 06:50 03:45 WBC RBC Hgb 11.7 L Hct 34.8 L MCV MCH RDW 15.5 H Plt Count Lymph % (Auto) [place] % (Auto) 7.7 H Eos % (Auto) Baso % (Auto) Lymph # Baso # Seg Neutrophils % 73.7 H Lymphocytes % (Manual) Monocytes % (Manual) Nucleated RBC % Seg Neutrophils # Seg Neutrophils # Man Monocytes # (Manual) PT INR Activated Clotting Time POC ABG pH POC ABG pCO2 POC ABG pO2 Sodium Potassium Chloride Carbon Dioxide BUN Creatinine Glucose POC Glucose 141 H 138 H Calcium Magnesium Direct Bilirubin AST ALT Alkaline Phosphatase Total Creatine Kinase CK-MB (CK-2) CK-MB (CK-2) Rel Index Troponin T C-Reactive Protein Total Protein Albumin Triglycerides Ur Specific [place] Urine WBC (Auto) Miscellaneous Test 05/17/17 03:45 WBC RBC Hgb Hct MCV MCH RDW Plt Count Lymph % (Auto) [place] % (Auto) Eos % (Auto) Baso % (Auto) Lymph # Baso # Seg Neutrophils % Lymphocytes % (Manual) Monocytes % (Manual) Nucleated RBC % Seg Neutrophils # Seg Neutrophils # Man Monocytes # (Manual) PT INR Activated Clotting Time POC ABG pH POC ABG pCO2 POC ABG pO2 Sodium Potassium Chloride Carbon Dioxide BUN Creatinine 0.2 L Glucose 131 H POC Glucose Calcium Magnesium Direct Bilirubin AST ALT Alkaline Phosphatase Total Creatine Kinase CK-MB (CK-2) CK-MB (CK-2) Rel Index Troponin T C-Reactive Protein Total Protein Albumin Triglycerides Ur Specific [place] Urine WBC (Auto) Miscellaneous Test Chest x-ray: report reviewed, image reviewed
--- NOTE | 2017-05-19 16:30 | Progress Note ---
Assessment and Plan Assessment and plan: --Hematuria; unknown etiology Patient is on antiplatelets and anticoagulants Close to monitor vital signs and H&H If no improvement in hematuria, consult urology and hold blood thinners --s/p cardiac arrest /anoxic encephalopathy/vegetative state -- acute hypoxic hypercapnic respiratory failure ; status post trach, vent dependent, --Acute anterior STEMI; status post PCI, --s/p MRSA pneumonia/aspiration pneumonia, s/p full treatment, contact isolation --Hypertension; BP in the lower range. 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 and neurology Family has unrealistic expectations , requests to continue full CODE STATUS Continue current management History Interval history: Patient seen and examined medical records reviewed Clinically no change, vital signs reviewed Status post tracheostomy on ventilator support Patient has mild hematuria He is on aspirin and Plavix and Eliquis Will monitor closely, consult urology if needed Patient is comfortable unresponsive Vital signs reviewed Hospitalist Physical - Constitutional Vitals: Temp Pulse Resp BP Pulse Ox 98.1 F 70 18 92/62 100 05/19/17 15:39 05/19/17 15:00 05/19/17 08:00 05/19/17 15:00 05/19/17 15:03 General appearance: Present: no acute distress, well-nourished, other ( tracheostomy on vent) - EENT Eyes: Present: PERRL, EOM intact - Neck Neck: Present: supple, normal ROM - Respiratory Respiratory effort: normal Respiratory: bilateral: diminished, rhonchi - Cardiovascular Rhythm: regular Heart Sounds: Present: S1 & S2 - Extremities Extremities: no ischemia, No edema - Abdominal General gastrointestinal: soft, non-tender, non-distended, normal bowel sounds, other (PEG in place) - Integumentary Integumentary: Present: clear, warm - Psychiatric Psychiatric: other (unresponsive) - Neurologic Neurologic: other (unresponsive) Results - Labs CBC & Chem 7: 05/17/17 03:45 05/17/17 03:45 Labs: Laboratory Last Values WBC 9.4 K/mm3 (4.5-11.0) 05/17/17 03:45 RBC 3.85 M/mm3 (3.65-5.03) 05/17/17 03:45 Hgb 11.7 gm/dl (11.8-15.2) L 05/17/17 03:45 Hct 34.8 % (35.5-45.6) L 05/17/17 03:45 MCV 90 fl (84-94) 05/17/17 03:45 MCH 31 pg (28-32) 05/17/17 03:45 MCHC 34 % (32-34) 05/17/17 03:45 RDW 15.5 % (13.2-15.2) H 05/17/17 03:45 Plt Count 289 K/mm3 (140-440) 05/17/17 03:45 Lymph % (Auto) 15.6 % (13.4-35.0) 05/17/17 03:45 [place] % (Auto) 7.7 % (0.0-7.3) H 05/17/17 03:45 Eos % (Auto) 2.7 % (0.0-4.3) 05/17/17 03:45 Baso % (Auto) 0.3 % (0.0-1.8) 05/17/17 03:45 Lymph # 1.5 K/mm3 (1.2-5.4) 05/17/17 03:45 [place] # 0.7 K/mm3 (0.0-0.8) 05/17/17 03:45 Eos # 0.3 K/mm3 (0.0-0.4) 05/17/17 03:45 Baso # 0.0 K/mm3 (0.0-0.1) 05/17/17 03:45 Add Manual Diff Complete 03/30/17 03:50 Total Counted 100 03/30/17 03:50 Seg Neutrophils % 73.7 % (40.0-70.0) H 05/17/17 03:45 Seg Neuts % (Manual) 65.0 % (40.0-70.0) 03/30/17 03:50 Band Neutrophils % 17.0 % 03/30/17 03:50 Lymphocytes % (Manual) 7.0 % (13.4-35.0) L 03/30/17 03:50 Reactive Lymphs % (Man) 0 % 03/30/17 03:50 Monocytes % (Manual) 7.0 % (0.0-7.3) 03/30/17 03:50 Eosinophils % (Manual) 0 % (0.0-4.3) 03/30/17 03:50 Basophils % (Manual) 0 % (0.0-1.8) 03/30/17 03:50 Metamyelocytes % 4.0 % 03/30/17 03:50 Myelocytes % 0 % 03/30/17 03:50 Promyelocytes % 0 % 03/30/17 03:50 Blast Cells % 0 % 03/30/17 03:50 Nucleated RBC % Not Reportable 03/30/17 03:50 Seg Neutrophils # 6.9 K/mm3 (1.8-7.7) 05/17/17 03:45 Seg Neutrophils # Man 12.7 K/mm3 (1.8-7.7) H 03/30/17 03:50 Band Neutrophils # 3.3 K/mm3 03/30/17 03:50 Lymphocytes # (Manual) 1.4 K/mm3 (1.2-5.4) 03/30/17 03:50 Abs React Lymphs (Man) 0.0 K/mm3 03/30/17 03:50 Monocytes # (Manual) 1.4 K/mm3 (0.0-0.8) H 03/30/17 03:50 Eosinophils # (Manual) 0.0 K/mm3 (0.0-0.4) 03/30/17 03:50 Basophils # (Manual) 0.0 K/mm3 (0.0-0.1) 03/30/17 03:50 Metamyelocytes # 0.8 K/mm3 03/30/17 03:50 Myelocytes # 0.0 K/mm3 03/30/17 03:50 Promyelocytes # 0.0 K/mm3 03/30/17 03:50 Blast Cells # 0.0 K/mm3 03/30/17 03:50 WBC Morphology Not Reportable 03/30/17 03:50 Hypersegmented Neuts Not Reportable 03/30/17 03:50 Hyposegmented Neuts Not Reportable 03/30/17 03:50 Hypogranular Neuts Not Reportable 03/30/17 03:50 Smudge Cells Not Reportable 03/30/17 03:50 Toxic Granulation Not Reportable 03/30/17 03:50 Toxic Vacuolation Not Reportable 03/30/17 03:50 Dohle Bodies Not Reportable 03/30/17 03:50 Pelger-Huet Anomaly Not Reportable 03/30/17 03:50 [place]ry Rods Not Reportable 03/30/17 03:50 Platelet Estimate Appears normal 03/30/17 03:50 Clumped Platelets Not Reportable 03/30/17 03:50 Plt Clumps, EDTA Not Reportable 03/30/17 03:50 Large Platelets Not Reportable 03/30/17 03:50 Giant Platelets Not Reportable 03/30/17 03:50 Platelet Satelliting Not Reportable 03/30/17 03:50 Plt Morphology Comment Not Reportable 03/30/17 03:50 RBC Morphology Not Reportable 03/30/17 03:50 Dimorphic RBCs Not Reportable 03/30/17 03:50 Polychromasia Not Reportable 03/30/17 03:50 Hypochromasia Not Reportable 03/30/17 03:50 Poikilocytosis Not Reportable 03/30/17 03:50 Anisocytosis Few 03/30/17 03:50 Microcytosis Not Reportable 03/30/17 03:50 Macrocytosis Not Reportable 03/30/17 03:50 Spherocytes Not Reportable 03/30/17 03:50 Pappenheimer Bodies Not Reportable 03/30/17 03:50 Sickle Cells Not Reportable 03/30/17 03:50 Target Cells Not Reportable 03/30/17 03:50 Tear Drop Cells Not Reportable 03/30/17 03:50 Ovalocytes Not Reportable 03/30/17 03:50 Helmet Cells Not Reportable 03/30/17 03:50 [place]-Owen Bodies Not Reportable 03/30/17 03:50 [place] Rings Not Reportable 03/30/17 03:50 Nusrat Cells Not Reportable 03/30/17 03:50 Bite Cells Not Reportable 03/30/17 03:50 Crenated Cell Not Reportable 03/30/17 03:50 Elliptocytes Not Reportable 03/30/17 03:50 Acanthocytes (Spur) Not Reportable 03/30/17 03:50 Rouleaux Not Reportable 03/30/17 03:50 Hemoglobin C Crystals Not Reportable 03/30/17 03:50 Schistocytes Not Reportable 03/30/17 03:50 Malaria parasites Not Reportable 03/30/17 03:50 Jermaine Bodies Not Reportable 03/30/17 03:50 Hem Pathologist Commnt No 03/30/17 03:50 PT 14.9 Sec. (12.2-14.9) 04/10/17 04:16 INR 1.11 (0.87-1.13) 04/10/17 04:16 APTT 27.8 Sec. (24.2-36.6) 04/10/17 04:16 Activated Clotting Time 92 (74-137) 03/29/17 17:47 POC ABG pH 7.524 (7.35-7.45) H 05/09/17 04:19 POC ABG pCO2 34.7 (35-45) L 05/09/17 04:19 POC ABG pO2 107 (80-105) H 05/09/17 04:19 POC ABG HCO3 28.6 05/09/17 04:19 POC ABG Total CO2 30 05/09/17 04:19 POC ABG O2 Sat 99 05/09/17 04:19 POC ABG Base Excess 6 05/09/17 04:19 FiO2 25 % 05/09/17 04:19 Sodium 140 mmol/L (137-145) 05/17/17 03:45 Potassium 3.8 mmol/L (3.6-5.0) 05/17/17 03:45 Chloride 100.5 mmol/L (98-107) 05/17/17 03:45 Carbon Dioxide 25 mmol/L (22-30) 05/17/17 03:45 Anion Gap 18 mmol/L 05/17/17 03:45 BUN 17 mg/dL (9-20) 05/17/17 03:45 Creatinine 0.2 mg/dL (0.8-1.5) L 05/17/17 03:45 Estimated GFR > 60 ml/min 05/17/17 03:45 BUN/Creatinine Ratio 85 % 05/17/17 03:45 Glucose 131 mg/dL (75-100) H 05/17/17 03:45 POC Glucose 138 (70-105) H 05/16/17 06:50 Calcium 9.1 mg/dL (8.4-10.2) 05/17/17 03:45 Phosphorus 3.50 mg/dL (2.5-4.5) 04/13/17 04:45 Magnesium 1.80 mg/dL (1.7-2.3) 05/01/17 05:30 Total Bilirubin 0.60 mg/dL (0.1-1.2) 05/01/17 05:30 Direct Bilirubin < 0.2 mg/dL (0-0.2) 04/27/17 05:40 Indirect Bilirubin 0.3 mg/dL 04/25/17 04:51 AST 71 units/L (5-40) H 05/01/17 05:30 ALT 125 units/L (7-56) H 05/01/17 05:30 Alkaline Phosphatase 158 units/L (35-129) H 05/01/17 05:30 Total Creatine Kinase 1404 units/L (55-170) H 04/12/17 21:36 CK-MB (CK-2) 8.0 ng/mL (0.0-4.0) H 04/12/17 21:36 CK-MB (CK-2) Rel Index 0.5 (0-4) 04/12/17 21:36 Troponin T 0.767 ng/mL (0.00-0.029) H* 04/12/17 21:36 C-Reactive Protein 21.80 mg/dL (0.00-1.30) H 03/30/17 16:04 Total Protein 6.7 g/dL (6.3-8.2) 05/01/17 05:30 Albumin 2.6 g/dL (3.9-5) L 05/01/17 05:30 Albumin/Globulin Ratio 0.6 % 05/01/17 05:30 Triglycerides 151 mg/dL (2-149) H 04/01/17 04:29 Cholesterol 164 mg/dL (50-199) 03/29/17 19:52 LDL Cholesterol Direct 81 mg/dL (50-130) 03/29/17 19:52 HDL Cholesterol 44 mg/dL (40-59) 03/29/17 19:52 Cholesterol/HDL Ratio 3.72 % 03/29/17 19:52 Urine Color [place] (Yellow) 04/21/17 22:00 Urine Turbidity Clear (Clear) 04/21/17 22:00 Urine pH 5.0 (5.0-7.0) 04/21/17 22:00 Ur Specific [place] 1.029 (1.003-1.030) 04/21/17 22:00 Urine Protein 30 mg/dl mg/dL (Negative) 04/21/17 22:00 Urine Glucose (UA) Neg mg/dL (Negative) 04/21/17 22:00 Urine Ketones Neg mg/dL (Negative) 04/21/17 22:00 Urine Blood Mod (Negative) 04/21/17 22:00 Urine Nitrite Neg (Negative) 04/21/17 22:00 Urine Bilirubin Neg (Negative) 04/21/17 22:00 Urine Urobilinogen 4.0 mg/dL (<2.0) 04/21/17 22:00 Ur Leukocyte Esterase Neg (Negative) 04/21/17 22:00 Urine WBC (Auto) 10.0 /HPF (0.0-6.0) H 04/21/17 22:00 Urine RBC (Auto) 44.0 /HPF (0.0-6.0) 04/21/17 22:00 U Epithel Cells (Auto) < 1.0 /HPF (0-13.0) 04/21/17 22:00 Amorphous Crystals 1+ 03/30/17 09:45 Urine Mucus 3+ /HPF 04/21/17 22:00 Urine Opiates Screen Presumptive negative 03/30/17 09:45 Urine Methadone Screen Presumptive negative 03/30/17 09:45 Ur Barbiturates Screen Presumptive negative 03/30/17 09:45 Ur Phencyclidine Scrn Presumptive negative 03/30/17 09:45 Ur Amphetamines Screen Presumptive positive 03/30/17 09:45 U Benzodiazepines Scrn Presumptive positive 03/30/17 09:45 Urine Cocaine Screen Presumptive negative 03/30/17 09:45 U Marijuana (THC) Screen Presumptive negative 03/30/17 09:45 Drugs of Abuse Note Disclamer 03/30/17 09:45 Miscellaneous Test Flexitest 1 H 04/25/17 07:07 Blood Type O POSITIVE 03/29/17 11:35 Antibody Screen Negative 03/29/17 11:35
--- NOTE | 2017-05-20 09:27 | Progress Note ---
Assessment and Plan Assessment and plan: V. fib arrest status post CPR anoxic encephalopathy respiratory failure vent dependent tracheostomy and PEG placement MRSA pneumonia with status. Sepsis poor prognosis, full CODE STATUS -- acute hypoxic hypercapnic respiratory failure ; status post trach, vent dependent, --Hematuria; unknown etiology, resolved --s/p cardiac arrest /anoxic encephalopathy/vegetative state --Acute anterior STEMI; status post PCI, --s/p MRSA pneumonia/aspiration pneumonia, s/p full treatment, contact isolation --Hypertension; monitor blood pressures and adjust medications as needed -- Aspiration pneumonia; sepsis; received full course of antibiotics --Cardiogenic shock; off pressors, --s/p trach and PEG, continue PEG feeds --Severe Protein calorie malnutrition: Peg feeds and nutrition suppliments --DVT prophylaxis; Lovenox Continue current management --Full CODE STATUS Poor prognosis family aware, Had family meetings along with the corporate strategy intern and neurology and case management Family has unrealistic expectations , requests to continue full CODE STATUS Plan of care is reviewed the nurse History Interval history: Patient Seen and examined medical records reviewed Hospitalist Physical - Constitutional Vitals: Temp Pulse Resp BP Pulse Ox 98.7 F 70 17 85/45 100 05/20/17 08:00 05/20/17 07:21 05/20/17 06:00 05/20/17 07:21 05/20/17 07:21 General appearance: Present: no acute distress, well-nourished, other ( tracheostomy on vent) - EENT Eyes: Present: PERRL (spontaneous opening of eyes) - Neck Neck: Present: supple, other (tracheostomy) - Respiratory Respiratory effort: normal Respiratory: bilateral: diminished, rhonchi - Cardiovascular Rhythm: regular Heart Sounds: Present: S1 & S2 - Extremities Extremities: no ischemia Extremity abnormal: edema (trace edema) - Abdominal General gastrointestinal: soft, non-tender, non-distended, normal bowel sounds, other (PEG in place and functional) - Integumentary Integumentary: Present: clear, warm - Psychiatric Psychiatric: other (noncommunicative) - Neurologic Neurologic: other (unresponsive) Results - Labs CBC & Chem 7: 05/17/17 03:45 05/17/17 03:45 Labs: Laboratory Last Values WBC 9.4 K/mm3 (4.5-11.0) 05/17/17 03:45 RBC 3.85 M/mm3 (3.65-5.03) 05/17/17 03:45 Hgb 11.7 gm/dl (11.8-15.2) L 05/17/17 03:45 Hct 34.8 % (35.5-45.6) L 05/17/17 03:45 MCV 90 fl (84-94) 05/17/17 03:45 MCH 31 pg (28-32) 05/17/17 03:45 MCHC 34 % (32-34) 05/17/17 03:45 RDW 15.5 % (13.2-15.2) H 05/17/17 03:45 Plt Count 289 K/mm3 (140-440) 05/17/17 03:45 Lymph % (Auto) 15.6 % (13.4-35.0) 05/17/17 03:45 [place] % (Auto) 7.7 % (0.0-7.3) H 05/17/17 03:45 Eos % (Auto) 2.7 % (0.0-4.3) 05/17/17 03:45 Baso % (Auto) 0.3 % (0.0-1.8) 05/17/17 03:45 Lymph # 1.5 K/mm3 (1.2-5.4) 05/17/17 03:45 [place] # 0.7 K/mm3 (0.0-0.8) 05/17/17 03:45 Eos # 0.3 K/mm3 (0.0-0.4) 05/17/17 03:45 Baso # 0.0 K/mm3 (0.0-0.1) 05/17/17 03:45 Add Manual Diff Complete 03/30/17 03:50 Total Counted 100 03/30/17 03:50 Seg Neutrophils % 73.7 % (40.0-70.0) H 05/17/17 03:45 Seg Neuts % (Manual) 65.0 % (40.0-70.0) 03/30/17 03:50 Band Neutrophils % 17.0 % 03/30/17 03:50 Lymphocytes % (Manual) 7.0 % (13.4-35.0) L 03/30/17 03:50 Reactive Lymphs % (Man) 0 % 03/30/17 03:50 Monocytes % (Manual) 7.0 % (0.0-7.3) 03/30/17 03:50 Eosinophils % (Manual) 0 % (0.0-4.3) 03/30/17 03:50 Basophils % (Manual) 0 % (0.0-1.8) 03/30/17 03:50 Metamyelocytes % 4.0 % 03/30/17 03:50 Myelocytes % 0 % 03/30/17 03:50 Promyelocytes % 0 % 03/30/17 03:50 Blast Cells % 0 % 03/30/17 03:50 Nucleated RBC % Not Reportable 03/30/17 03:50 Seg Neutrophils # 6.9 K/mm3 (1.8-7.7) 05/17/17 03:45 Seg Neutrophils # Man 12.7 K/mm3 (1.8-7.7) H 03/30/17 03:50 Band Neutrophils # 3.3 K/mm3 03/30/17 03:50 Lymphocytes # (Manual) 1.4 K/mm3 (1.2-5.4) 03/30/17 03:50 Abs React Lymphs (Man) 0.0 K/mm3 03/30/17 03:50 Monocytes # (Manual) 1.4 K/mm3 (0.0-0.8) H 03/30/17 03:50 Eosinophils # (Manual) 0.0 K/mm3 (0.0-0.4) 03/30/17 03:50 Basophils # (Manual) 0.0 K/mm3 (0.0-0.1) 03/30/17 03:50 Metamyelocytes # 0.8 K/mm3 03/30/17 03:50 Myelocytes # 0.0 K/mm3 03/30/17 03:50 Promyelocytes # 0.0 K/mm3 03/30/17 03:50 Blast Cells # 0.0 K/mm3 03/30/17 03:50 WBC Morphology Not Reportable 03/30/17 03:50 Hypersegmented Neuts Not Reportable 03/30/17 03:50 Hyposegmented Neuts Not Reportable 03/30/17 03:50 Hypogranular Neuts Not Reportable 03/30/17 03:50 Smudge Cells Not Reportable 03/30/17 03:50 Toxic Granulation Not Reportable 03/30/17 03:50 Toxic Vacuolation Not Reportable 03/30/17 03:50 Dohle Bodies Not Reportable 03/30/17 03:50 Pelger-Huet Anomaly Not Reportable 03/30/17 03:50 Sherry Rods Not Reportable 03/30/17 03:50 Platelet Estimate Appears normal 03/30/17 03:50 Clumped Platelets Not Reportable 03/30/17 03:50 Plt Clumps, EDTA Not Reportable 03/30/17 03:50 Large Platelets Not Reportable 03/30/17 03:50 Giant Platelets Not Reportable 03/30/17 03:50 Platelet Satelliting Not Reportable 03/30/17 03:50 Plt Morphology Comment Not Reportable 03/30/17 03:50 RBC Morphology Not Reportable 03/30/17 03:50 Dimorphic RBCs Not Reportable 03/30/17 03:50 Polychromasia Not Reportable 03/30/17 03:50 Hypochromasia Not Reportable 03/30/17 03:50 Poikilocytosis Not Reportable 03/30/17 03:50 Anisocytosis Few 03/30/17 03:50 Microcytosis Not Reportable 03/30/17 03:50 Macrocytosis Not Reportable 03/30/17 03:50 Spherocytes Not Reportable 03/30/17 03:50 Pappenheimer Bodies Not Reportable 03/30/17 03:50 Sickle Cells Not Reportable 03/30/17 03:50 Target Cells Not Reportable 03/30/17 03:50 Tear Drop Cells Not Reportable 03/30/17 03:50 Ovalocytes Not Reportable 03/30/17 03:50 Helmet Cells Not Reportable 03/30/17 03:50 Tamayo-Redmond Bodies Not Reportable 03/30/17 03:50 Lyons Rings Not Reportable 03/30/17 03:50 Nusrat Cells Not Reportable 03/30/17 03:50 Bite Cells Not Reportable 03/30/17 03:50 Crenated Cell Not Reportable 03/30/17 03:50 Elliptocytes Not Reportable 03/30/17 03:50 Acanthocytes (Spur) Not Reportable 03/30/17 03:50 Rouleaux Not Reportable 03/30/17 03:50 Hemoglobin C Crystals Not Reportable 03/30/17 03:50 Schistocytes Not Reportable 03/30/17 03:50 Malaria parasites Not Reportable 03/30/17 03:50 Jermaine Bodies Not Reportable 03/30/17 03:50 Hem Pathologist Commnt No 03/30/17 03:50 PT 14.9 Sec. (12.2-14.9) 04/10/17 04:16 INR 1.11 (0.87-1.13) 04/10/17 04:16 APTT 27.8 Sec. (24.2-36.6) 04/10/17 04:16 Activated Clotting Time 92 (74-137) 03/29/17 17:47 POC ABG pH 7.524 (7.35-7.45) H 05/09/17 04:19 POC ABG pCO2 34.7 (35-45) L 05/09/17 04:19 POC ABG pO2 107 (80-105) H 05/09/17 04:19 POC ABG HCO3 28.6 05/09/17 04:19 POC ABG Total CO2 30 05/09/17 04:19 POC ABG O2 Sat 99 05/09/17 04:19 POC ABG Base Excess 6 05/09/17 04:19 FiO2 25 % 05/09/17 04:19 Sodium 140 mmol/L (137-145) 05/17/17 03:45 Potassium 3.8 mmol/L (3.6-5.0) 05/17/17 03:45 Chloride 100.5 mmol/L (98-107) 05/17/17 03:45 Carbon Dioxide 25 mmol/L (22-30) 05/17/17 03:45 Anion Gap 18 mmol/L 05/17/17 03:45 BUN 17 mg/dL (9-20) 05/17/17 03:45 Creatinine 0.2 mg/dL (0.8-1.5) L 05/17/17 03:45 Estimated GFR > 60 ml/min 05/17/17 03:45 BUN/Creatinine Ratio 85 % 05/17/17 03:45 Glucose 131 mg/dL (75-100) H 05/17/17 03:45 POC Glucose 138 (70-105) H 05/16/17 06:50 Calcium 9.1 mg/dL (8.4-10.2) 05/17/17 03:45 Phosphorus 3.50 mg/dL (2.5-4.5) 04/13/17 04:45 Magnesium 1.80 mg/dL (1.7-2.3) 05/01/17 05:30 Total Bilirubin 0.60 mg/dL (0.1-1.2) 05/01/17 05:30 Direct Bilirubin < 0.2 mg/dL (0-0.2) 04/27/17 05:40 Indirect Bilirubin 0.3 mg/dL 04/25/17 04:51 AST 71 units/L (5-40) H 05/01/17 05:30 ALT 125 units/L (7-56) H 05/01/17 05:30 Alkaline Phosphatase 158 units/L (35-129) H 05/01/17 05:30 Total Creatine Kinase 1404 units/L (55-170) H 04/12/17 21:36 CK-MB (CK-2) 8.0 ng/mL (0.0-4.0) H 04/12/17 21:36 CK-MB (CK-2) Rel Index 0.5 (0-4) 04/12/17 21:36 Troponin T 0.767 ng/mL (0.00-0.029) H* 04/12/17 21:36 C-Reactive Protein 21.80 mg/dL (0.00-1.30) H 03/30/17 16:04 Total Protein 6.7 g/dL (6.3-8.2) 05/01/17 05:30 Albumin 2.6 g/dL (3.9-5) L 05/01/17 05:30 Albumin/Globulin Ratio 0.6 % 05/01/17 05:30 Triglycerides 151 mg/dL (2-149) H 04/01/17 04:29 Cholesterol 164 mg/dL (50-199) 03/29/17 19:52 LDL Cholesterol Direct 81 mg/dL (50-130) 03/29/17 19:52 HDL Cholesterol 44 mg/dL (40-59) 03/29/17 19:52 Cholesterol/HDL Ratio 3.72 % 03/29/17 19:52 Urine Color [place] (Yellow) 04/21/17 22:00 Urine Turbidity Clear (Clear) 04/21/17 22:00 Urine pH 5.0 (5.0-7.0) 04/21/17 22:00 Ur Specific [place] 1.029 (1.003-1.030) 04/21/17 22:00 Urine Protein 30 mg/dl mg/dL (Negative) 04/21/17 22:00 Urine Glucose (UA) Neg mg/dL (Negative) 04/21/17 22:00 Urine Ketones Neg mg/dL (Negative) 04/21/17 22:00 Urine Blood Mod (Negative) 04/21/17 22:00 Urine Nitrite Neg (Negative) 04/21/17 22:00 Urine Bilirubin Neg (Negative) 04/21/17 22:00 Urine Urobilinogen 4.0 mg/dL (<2.0) 04/21/17 22:00 Ur Leukocyte Esterase Neg (Negative) 04/21/17 22:00 Urine WBC (Auto) 10.0 /HPF (0.0-6.0) H 04/21/17 22:00 Urine RBC (Auto) 44.0 /HPF (0.0-6.0) 04/21/17 22:00 U Epithel Cells (Auto) < 1.0 /HPF (0-13.0) 04/21/17 22:00 Amorphous Crystals 1+ 03/30/17 09:45 Urine Mucus 3+ /HPF 04/21/17 22:00 Urine Opiates Screen Presumptive negative 03/30/17 09:45 Urine Methadone Screen Presumptive negative 03/30/17 09:45 Ur Barbiturates Screen Presumptive negative 03/30/17 09:45 Ur Phencyclidine Scrn Presumptive negative 03/30/17 09:45 Ur Amphetamines Screen Presumptive positive 03/30/17 09:45 U Benzodiazepines Scrn Presumptive positive 03/30/17 09:45 Urine Cocaine Screen Presumptive negative 03/30/17 09:45 U Marijuana (THC) Screen Presumptive negative 03/30/17 09:45 Drugs of Abuse Note Disclamer 03/30/17 09:45 Miscellaneous Test Flexitest 1 H 04/25/17 07:07 Blood Type O POSITIVE 03/29/17 11:35 Antibody Screen Negative 03/29/17 11:35
[2017-05-20] MEDS: ELIQUIS PO SCH ×2 (10:00→21:33)
[2017-05-20] MEDS: ASPIRIN PO SCH (12:16)
[2017-05-20] MEDS: CORDARONE PO SCH ×2 (12:16→21:33)
[2017-05-20] MEDS: LOPRESSOR PO SCH ×2 (12:16→21:33)
[2017-05-20] MEDS: PLAVIX PO SCH (12:16)
[2017-05-20] MEDS: ZESTRIL PO SCH (12:17)
[2017-05-20] MEDS: PROTONIX FEEDTUBE SCH (12:17)
--- NOTE | 2017-05-20 16:18 | Progress Note ---
Assessment and Plan Imp: 1. s/p CP arrest 2. Anoxic enceph. 3. Acute respiratory failure, hypoxia 4. s/p Trach/PEG 5. Hypernatremia 6. STEMI/ICMP 7. UTI Rec: 1. 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 Plavix 3. TFs, DVT/GI PPx 4. No significant hematuria in lazaro bag 5. Dismal prognosis and bad outcome is expected as explained by neurology and Dr. Ham (see previous notes); they have unrealistic expectations and thus he remains full support/full code 6. Complex patient Plan of care reviewed with sister at bedside, she understands/agrees; explained he is not likely to come off vent Subjective Date of service: 05/20/17 Principal diagnosis: coma,ARV,s/p arrest Interval history: No events. Eyes open but unresponsive. Cannot give history. Active Medications Albuterol (Proventil) 2.5 mg IH Q3HRT PRN PRN Reason: Shortness Of Breath Last Admin: 04/13/17 21:25 Dose: 2.5 mg Amiodarone HCl (Cordarone) 200 mg PO BID [facility] Last Admin: 05/20/17 12:16 Dose: Not Given Apixaban (Eliquis) 5 mg PO Q12HR [facility] PRN Reason: Protocol Last Admin: 05/19/17 23:21 Dose: 5 mg Aspirin (Aspirin) 325 mg PO QDAY [facility] Last Admin: 05/20/17 12:16 Dose: 325 mg Atorvastatin Calcium (Lipitor) 20 mg PO QHS [facility] Last Admin: 05/19/17 23:21 Dose: 20 mg Clopidogrel Bisulfate (Plavix) 75 mg PO QDAY [facility] Last Admin: 05/20/17 12:16 Dose: 75 mg Dextrose (D50w (25gm) Syringe) 50 ml IV PRN PRN PRN Reason: Hypoglycemia Hydrophilic Ointment (Vaseline Lip Therapy) 1 applic TP Q2HR PRN PRN Reason: Dry Lips Last Admin: 05/01/17 00:35 Dose: 1 applic Lisinopril (Zestril) 2.5 mg PO QDAY [facility] Last Admin: 05/20/17 12:17 Dose: Not Given Metoprolol Tartrate (Lopressor) 2.5 mg IV Q4HR PRN PRN Reason: HR>130 Last Admin: 04/09/17 19:41 Dose: 2.5 mg Metoprolol Tartrate (Lopressor) 12.5 mg PO BID [facility] Last Admin: 05/20/17 12:16 Dose: Not Given Multi-Ingred Cream/Lotion/Oil/Oint (Artificial Tears Ophth Oint) 1 applic OU Q4HR PRN PRN Reason: Dry Eye(s) Last Admin: 03/31/17 22:51 Dose: 1 applic Pantoprazole (Protonix) 40 mg FEEDTUBE DAILY [facility] Last Admin: 05/20/17 12:17 Dose: 40 mg Scopolamine (Transderm-Scop) 1 each TD Q3D [facility] Last Admin: 05/17/17 18:50 Dose: 1 each Zolpidem Tartrate (Ambien) 10 mg PO QHS PRN PRN Reason: Insomnia Objective Vital Signs - 12hr 05/20/17 05/20/17 05/20/17 04:38 05:00 05:04 Temperature 98.5 F Pulse Rate 69 78 Respiratory 17 Rate Blood Pressure 93/49 91/52 O2 Sat by Pulse 97 96 Oximetry O2 Sat by Pulse Oximetry [ Assessment] 05/20/17 05/20/17 05/20/17 06:00 06:10 07:00 Temperature Pulse Rate 65 70 Respiratory 17 21 Rate Blood Pressure 89/47 89/44 O2 Sat by Pulse 84 100 99 Oximetry O2 Sat by Pulse Oximetry [ Assessment] 05/20/17 05/20/17 05/20/17 07:21 08:00 09:00 Temperature 98.7 F Pulse Rate 70 65 67 Respiratory 23 12 Rate Blood Pressure 85/45 90/44 88/52 O2 Sat by Pulse 95 92 94 Oximetry O2 Sat by Pulse 100 Oximetry [ Assessment] 05/20/17 05/20/17 05/20/17 10:00 11:00 12:00 Temperature 98.8 F Pulse Rate 64 57 L 67 Respiratory 17 17 21 Rate Blood Pressure 88/49 90/44 90/53 O2 Sat by Pulse 86 90 98 Oximetry O2 Sat by Pulse Oximetry [ Assessment] 05/20/17 05/20/17 05/20/17 12:16 12:31 13:00 Temperature Pulse Rate 66 Respiratory 12 Rate Blood Pressure 90/53 90/54 90/53 O2 Sat by Pulse 99 92 Oximetry O2 Sat by Pulse Oximetry [ Assessment] 05/20/17 05/20/17 14:00 15:00 Temperature Pulse Rate 66 Respiratory 17 Rate Blood Pressure 93/63 103/61 O2 Sat by Pulse 100 100 Oximetry O2 Sat by Pulse Oximetry [ Assessment] Constitutional: no acute distress, comatose Eyes: non-icteric ENT: oropharynx moist Neck: supple, other (tracheotomy ) Effort: normal Ascultation: Bilateral: other (coarse BS bilaterally) Cardiovascular: regular rate and rhythm Gastrointestinal: normoactive bowel sounds, soft, non-tender, non-distended Integumentary: normal Extremities: no cyanosis, no edema, pink and warm Neurologic: other (nonresponsive with flaccid extremities) Psychiatric: other (eyes open spontaneously but does not follow any voice commands, otherwise nonresponsive except for pain) CBC and BMP: 05/17/17 03:45 05/17/17 03:45 ABG, PT/INR, D-dimer: ABG POC ABG pH 7.524 (7.35-7.45) H 05/09/17 04:19 POC ABG pCO2 34.7 (35-45) L 05/09/17 04:19 POC ABG pO2 107 (80-105) H 05/09/17 04:19 POC ABG HCO3 28.6 05/09/17 04:19 POC ABG Total CO2 30 05/09/17 04:19 POC ABG O2 Sat 99 05/09/17 04:19 PT/INR, D-dimer PT 14.9 Sec. (12.2-14.9) 04/10/17 04:16 INR 1.11 (0.87-1.13) 04/10/17 04:16 Abnormal lab findings: Abnormal Labs 03/29/17 03/29/17 03/29/17 11:35 11:35 11:40 WBC RBC Hgb Hct MCV 98 H MCH 33 H RDW Plt Count Lymph % (Auto) [place] % (Auto) Eos % (Auto) Baso % (Auto) Lymph # Baso # Seg Neutrophils % Lymphocytes % (Manual) Monocytes % (Manual) 9.0 H Nucleated RBC % 1.0 H Seg Neutrophils # Seg Neutrophils # Man Monocytes # (Manual) 0.9 H PT 15.8 H INR 1.20 H Activated Clotting Time POC ABG pH POC ABG pCO2 POC ABG pO2 Sodium Potassium 2.7 L* Chloride 95.3 L Carbon Dioxide 17 L BUN Creatinine Glucose 435 H POC Glucose Calcium Magnesium Direct Bilirubin AST ALT Alkaline Phosphatase Total Creatine Kinase CK-MB (CK-2) CK-MB (CK-2) Rel Index Troponin T C-Reactive Protein Total Protein 6.1 L Albumin 3.5 L Triglycerides Ur Specific [place] Urine WBC (Auto) Miscellaneous Test 03/29/17 03/29/17 03/29/17 12:34 13:10 13:25 WBC RBC Hgb Hct MCV MCH RDW Plt Count Lymph % (Auto) [place] % (Auto) Eos % (Auto) Baso % (Auto) Lymph # Baso # Seg Neutrophils % Lymphocytes % (Manual) Monocytes % (Manual) Nucleated RBC % Seg Neutrophils # Seg Neutrophils # Man Monocytes # (Manual) PT INR Activated Clotting Time 142 H 169 H 175 H POC ABG pH POC ABG pCO2 POC ABG pO2 Sodium Potassium Chloride Carbon Dioxide BUN Creatinine Glucose POC Glucose Calcium Magnesium Direct Bilirubin AST ALT Alkaline Phosphatase Total Creatine Kinase CK-MB (CK-2) CK-MB (CK-2) Rel Index Troponin T C-Reactive Protein Total Protein Albumin Triglycerides Ur Specific [place] Urine WBC (Auto) Miscellaneous Test 03/29/17 03/29/17 03/29/17 14:50 15:18 19:52 WBC RBC Hgb Hct MCV MCH RDW Plt Count Lymph % (Auto) [place] % (Auto) Eos % (Auto) Baso % (Auto) Lymph # Baso # Seg Neutrophils % Lymphocytes % (Manual) Monocytes % (Manual) Nucleated RBC % Seg Neutrophils # Seg Neutrophils # Man Monocytes # (Manual) PT INR Activated Clotting Time 175 H POC ABG pH 7.293 L POC ABG pCO2 POC ABG pO2 602 H Sodium Potassium Chloride Carbon Dioxide BUN Creatinine Glucose POC Glucose Calcium Magnesium Direct Bilirubin AST ALT Alkaline Phosphatase Total Creatine Kinase 7263 H CK-MB (CK-2) > 300.0 H CK-MB (CK-2) Rel Index 4.1 H Troponin T 8.080 H* D C-Reactive Protein Total Protein Albumin Triglycerides 195 H Ur Specific [place] Urine WBC (Auto) Miscellaneous Test 03/30/17 03/30/17 03/30/17 03:50 03:50 06:19 WBC 19.5 H RBC Hgb Hct MCV MCH RDW Plt Count Lymph % (Auto) [place] % (Auto) Eos % (Auto) Baso % (Auto) Lymph # Baso # Seg Neutrophils % Lymphocytes % (Manual) 7.0 L Monocytes % (Manual) Nucleated RBC % Seg Neutrophils # Seg Neutrophils # Man 12.7 H Monocytes # (Manual) 1.4 H PT INR Activated Clotting Time POC ABG pH POC ABG pCO2 28.2 L POC ABG pO2 108 H Sodium Potassium Chloride 108.9 H Carbon Dioxide 15 L BUN 25 H Creatinine Glucose 158 H POC Glucose Calcium 8.1 L Magnesium Direct Bilirubin AST ALT Alkaline Phosphatase Total Creatine Kinase 7963 H CK-MB (CK-2) > 300.0 H CK-MB (CK-2) Rel Index Troponin T 6.850 H* C-Reactive Protein Total Protein Albumin Triglycerides Ur Specific [place] Urine WBC (Auto) Miscellaneous Test 03/30/17 03/30/17 03/31/17 09:45 16:04 02:19 WBC RBC Hgb Hct MCV MCH RDW Plt Count Lymph % (Auto) [place] % (Auto) Eos % (Auto) Baso % (Auto) Lymph # Baso # Seg Neutrophils % Lymphocytes % (Manual) Monocytes % (Manual) Nucleated RBC % Seg Neutrophils # Seg Neutrophils # Man Monocytes # (Manual) PT INR Activated Clotting Time POC ABG pH POC ABG pCO2 POC ABG pO2 Sodium Potassium Chloride Carbon Dioxide BUN Creatinine Glucose POC Glucose 137 H Calcium Magnesium Direct Bilirubin AST ALT Alkaline Phosphatase Total Creatine Kinase CK-MB (CK-2) CK-MB (CK-2) Rel Index Troponin T C-Reactive Protein 21.80 H Total Protein Albumin Triglycerides Ur Specific [place] 1.031 H Urine WBC (Auto) Miscellaneous Test 03/31/17 03/31/17 03/31/17 03:57 06:54 09:22 WBC RBC Hgb Hct MCV MCH RDW Plt Count Lymph % (Auto) [place] % (Auto) Eos % (Auto) Baso % (Auto) Lymph # Baso # Seg Neutrophils % Lymphocytes % (Manual) Monocytes % (Manual) Nucleated RBC % Seg Neutrophils # Seg Neutrophils # Man Monocytes # (Manual) PT INR Activated Clotting Time POC ABG pH 7.475 H POC ABG pCO2 25.4 L POC ABG pO2 62 L Sodium Potassium Chloride Carbon Dioxide 19 L BUN 22 H Creatinine 0.6 L Glucose 148 H POC Glucose 143 H Calcium 8.3 L Magnesium Direct Bilirubin AST ALT Alkaline Phosphatase Total Creatine Kinase CK-MB (CK-2) CK-MB (CK-2) Rel Index Troponin T C-Reactive Protein Total Protein Albumin Triglycerides Ur Specific [place] Urine WBC (Auto) Miscellaneous Test 03/31/17 03/31/17 03/31/17 11:40 17:47 23:38 WBC RBC Hgb Hct MCV MCH RDW Plt Count Lymph % (Auto) [place] % (Auto) Eos % (Auto) Baso % (Auto) Lymph # Baso # Seg Neutrophils % Lymphocytes % (Manual) Monocytes % (Manual) Nucleated RBC % Seg Neutrophils # Seg Neutrophils # Man Monocytes # (Manual) PT INR Activated Clotting Time POC ABG pH POC ABG pCO2 POC ABG pO2 Sodium Potassium Chloride Carbon Dioxide BUN Creatinine Glucose POC Glucose 127 H 137 H 148 H Calcium Magnesium Direct Bilirubin AST ALT Alkaline Phosphatase Total Creatine Kinase CK-MB (CK-2) CK-MB (CK-2) Rel Index Troponin T C-Reactive Protein Total Protein Albumin Triglycerides Ur Specific [place] Urine WBC (Auto) Miscellaneous Test 04/01/17 04/01/17 04/01/17 04:29 05:01 11:54 WBC RBC Hgb Hct MCV MCH RDW Plt Count Lymph % (Auto) [place] % (Auto) Eos % (Auto) Baso % (Auto) Lymph # Baso # Seg Neutrophils % Lymphocytes % (Manual) Monocytes % (Manual) Nucleated RBC % Seg Neutrophils # Seg Neutrophils # Man Monocytes # (Manual) PT INR Activated Clotting Time POC ABG pH 7.513 H POC ABG pCO2 22.1 L POC ABG pO2 64 L Sodium Potassium Chloride Carbon Dioxide BUN Creatinine Glucose POC Glucose 121 H Calcium Magnesium Direct Bilirubin AST ALT Alkaline Phosphatase Total Creatine Kinase CK-MB (CK-2) CK-MB (CK-2) Rel Index Troponin T C-Reactive Protein Total Protein Albumin Triglycerides 151 H Ur Specific [place] Urine WBC (Auto) Miscellaneous Test 04/01/17 04/02/17 04/02/17 18:17 00:11 04:52 WBC RBC Hgb Hct MCV MCH RDW Plt Count Lymph % (Auto) [place] % (Auto) Eos % (Auto) Baso % (Auto) Lymph # Baso # Seg Neutrophils % Lymphocytes % (Manual) Monocytes % (Manual) Nucleated RBC % Seg Neutrophils # Seg Neutrophils # Man Monocytes # (Manual) PT INR Activated Clotting Time POC ABG pH 7.524 H POC ABG pCO2 25.5 L POC ABG pO2 66 L Sodium Potassium Chloride Carbon Dioxide BUN Creatinine Glucose POC Glucose 117 H 122 H Calcium Magnesium Direct Bilirubin AST ALT Alkaline Phosphatase Total Creatine Kinase CK-MB (CK-2) CK-MB (CK-2) Rel Index Troponin T C-Reactive Protein Total Protein Albumin Triglycerides Ur Specific [place] Urine WBC (Auto) Miscellaneous Test 04/02/17 04/02/17 04/02/17 05:18 10:41 12:19 WBC RBC Hgb Hct MCV MCH RDW Plt Count Lymph % (Auto) [place] % (Auto) Eos % (Auto) Baso % (Auto) Lymph # Baso # Seg Neutrophils % Lymphocytes % (Manual) Monocytes % (Manual) Nucleated RBC % Seg Neutrophils # Seg Neutrophils # Man Monocytes # (Manual) PT INR Activated Clotting Time POC ABG pH 7.534 H POC ABG pCO2 27.4 L POC ABG pO2 Sodium Potassium Chloride Carbon Dioxide BUN Creatinine Glucose POC Glucose 132 H 129 H Calcium Magnesium Direct Bilirubin AST ALT Alkaline Phosphatase Total Creatine Kinase CK-MB (CK-2) CK-MB (CK-2) Rel Index Troponin T C-Reactive Protein Total Protein Albumin Triglycerides Ur Specific [place] Urine WBC (Auto) Miscellaneous Test 04/02/17 04/03/17 04/03/17 18:05 00:08 05:09 WBC RBC Hgb Hct MCV MCH RDW Plt Count Lymph % (Auto) [place] % (Auto) Eos % (Auto) Baso % (Auto) Lymph # Baso # Seg Neutrophils % Lymphocytes % (Manual) Monocytes % (Manual) Nucleated RBC % Seg Neutrophils # Seg Neutrophils # Man Monocytes # (Manual) PT INR Activated Clotting Time POC ABG pH 7.455 H POC ABG pCO2 33.2 L POC ABG pO2 120 H Sodium Potassium Chloride Carbon Dioxide BUN Creatinine Glucose POC Glucose 136 H 128 H Calcium Magnesium Direct Bilirubin AST ALT Alkaline Phosphatase Total Creatine Kinase CK-MB (CK-2) CK-MB (CK-2) Rel Index Troponin T C-Reactive Protein Total Protein Albumin Triglycerides Ur Specific [place] Urine WBC (Auto) Miscellaneous Test 04/03/17 04/03/17 04/03/17 06:32 11:54 12:16 WBC 11.9 H RBC Hgb Hct MCV MCH RDW Plt Count 125 L Lymph % (Auto) 4.8 L [place] % (Auto) Eos % (Auto) Baso % (Auto) Lymph # 0.6 L Baso # Seg Neutrophils % 86.7 H Lymphocytes % (Manual) Monocytes % (Manual) Nucleated RBC % Seg Neutrophils # 10.3 H Seg Neutrophils # Man Monocytes # (Manual) PT INR Activated Clotting Time POC ABG pH POC ABG pCO2 POC ABG pO2 Sodium Potassium Chloride Carbon Dioxide BUN Creatinine Glucose POC Glucose 138 H 143 H Calcium Magnesium Direct Bilirubin AST ALT Alkaline Phosphatase Total Creatine Kinase CK-MB (CK-2) CK-MB (CK-2) Rel Index Troponin T C-Reactive Protein Total Protein Albumin Triglycerides Ur Specific [place] Urine WBC (Auto) Miscellaneous Test 04/03/17 04/03/17 04/04/17 17:33 23:59 04:34 WBC RBC Hgb Hct MCV MCH RDW Plt Count Lymph % (Auto) [place] % (Auto) Eos % (Auto) Baso % (Auto) Lymph # Baso # Seg Neutrophils % Lymphocytes % (Manual) Monocytes % (Manual) Nucleated RBC % Seg Neutrophils # Seg Neutrophils # Man Monocytes # (Manual) PT INR Activated Clotting Time POC ABG pH 7.457 H POC ABG pCO2 29.8 L POC ABG pO2 76 L Sodium Potassium Chloride Carbon Dioxide BUN Creatinine Glucose POC Glucose 130 H 155 H Calcium Magnesium Direct Bilirubin AST ALT Alkaline Phosphatase Total Creatine Kinase CK-MB (CK-2) CK-MB (CK-2) Rel Index Troponin T C-Reactive Protein Total Protein Albumin Triglycerides Ur Specific [place] Urine WBC (Auto) Miscellaneous Test 04/04/17 04/04/17 04/04/17 05:27 12:22 18:18 WBC RBC Hgb Hct MCV MCH RDW Plt Count Lymph % (Auto) [place] % (Auto) Eos % (Auto) Baso % (Auto) Lymph # Baso # Seg Neutrophils % Lymphocytes % (Manual) Monocytes % (Manual) Nucleated RBC % Seg Neutrophils # Seg Neutrophils # Man Monocytes # (Manual) PT INR Activated Clotting Time POC ABG pH POC ABG pCO2 POC ABG pO2 Sodium Potassium Chloride Carbon Dioxide BUN Creatinine Glucose POC Glucose 164 H 146 H 130 H Calcium Magnesium Direct Bilirubin AST ALT Alkaline Phosphatase Total Creatine Kinase CK-MB (CK-2) CK-MB (CK-2) Rel Index Troponin T C-Reactive Protein Total Protein Albumin Triglycerides Ur Specific [place] Urine WBC (Auto) Miscellaneous Test 04/05/17 04/05/17 04/05/17 04:43 05:28 11:36 WBC RBC Hgb Hct MCV MCH RDW Plt Count Lymph % (Auto) [place] % (Auto) Eos % (Auto) Baso % (Auto) Lymph # Baso # Seg Neutrophils % Lymphocytes % (Manual) Monocytes % (Manual) Nucleated RBC % Seg Neutrophils # Seg Neutrophils # Man Monocytes # (Manual) PT INR Activated Clotting Time POC ABG pH 7.479 H POC ABG pCO2 33.5 L POC ABG pO2 76 L Sodium Potassium Chloride Carbon Dioxide BUN Creatinine Glucose POC Glucose 145 H 136 H Calcium Magnesium Direct Bilirubin AST ALT Alkaline Phosphatase Total Creatine Kinase CK-MB (CK-2) CK-MB (CK-2) Rel Index Troponin T C-Reactive Protein Total Protein Albumin Triglycerides Ur Specific [place] Urine WBC (Auto) Miscellaneous Test 04/05/17 04/06/17 04/06/17 17:58 00:16 05:26 WBC RBC Hgb Hct MCV MCH RDW Plt Count Lymph % (Auto) [place] % (Auto) Eos % (Auto) Baso % (Auto) Lymph # Baso # Seg Neutrophils % Lymphocytes % (Manual) Monocytes % (Manual) Nucleated RBC % Seg Neutrophils # Seg Neutrophils # Man Monocytes # (Manual) PT INR Activated Clotting Time POC ABG pH POC ABG pCO2 POC ABG pO2 Sodium Potassium Chloride Carbon Dioxide BUN Creatinine Glucose POC Glucose 130 H 159 H 146 H Calcium Magnesium Direct Bilirubin AST ALT Alkaline Phosphatase Total Creatine Kinase CK-MB (CK-2) CK-MB (CK-2) Rel Index Troponin T C-Reactive Protein Total Protein Albumin Triglycerides Ur Specific [place] Urine WBC (Auto) Miscellaneous Test 04/06/17 04/06/17 04/07/17 13:11 16:54 11:45 WBC RBC Hgb Hct MCV MCH RDW Plt Count Lymph % (Auto) [place] % (Auto) Eos % (Auto) Baso % (Auto) Lymph # Baso # Seg Neutrophils % Lymphocytes % (Manual) Monocytes % (Manual) Nucleated RBC % Seg Neutrophils # Seg Neutrophils # Man Monocytes # (Manual) PT INR Activated Clotting Time POC ABG pH 7.517 H POC ABG pCO2 32.1 L POC ABG pO2 Sodium Potassium Chloride Carbon Dioxide BUN Creatinine Glucose POC Glucose 132 H 123 H Calcium Magnesium Direct Bilirubin AST ALT Alkaline Phosphatase Total Creatine Kinase CK-MB (CK-2) CK-MB (CK-2) Rel Index Troponin T C-Reactive Protein Total Protein Albumin Triglycerides Ur Specific [place] Urine WBC (Auto) Miscellaneous Test 04/07/17 04/07/17 04/07/17 12:51 17:40 23:55 WBC RBC Hgb Hct MCV MCH RDW Plt Count Lymph % (Auto) [place] % (Auto) Eos % (Auto) Baso % (Auto) Lymph # Baso # Seg Neutrophils % Lymphocytes % (Manual) Monocytes % (Manual) Nucleated RBC % Seg Neutrophils # Seg Neutrophils # Man Monocytes # (Manual) PT INR Activated Clotting Time POC ABG pH POC ABG pCO2 POC ABG pO2 Sodium Potassium Chloride Carbon Dioxide BUN Creatinine Glucose POC Glucose 138 H 154 H 143 H Calcium Magnesium Direct Bilirubin AST ALT Alkaline Phosphatase Total Creatine Kinase CK-MB (CK-2) CK-MB (CK-2) Rel Index Troponin T C-Reactive Protein Total Protein Albumin Triglycerides Ur Specific [place] Urine WBC (Auto) Miscellaneous Test 04/08/17 04/08/17 04/08/17 05:27 11:14 17:44 WBC RBC Hgb Hct MCV MCH RDW Plt Count Lymph % (Auto) [place] % (Auto) Eos % (Auto) Baso % (Auto) Lymph # Baso # Seg Neutrophils % Lymphocytes % (Manual) Monocytes % (Manual) Nucleated RBC % Seg Neutrophils # Seg Neutrophils # Man Monocytes # (Manual) PT INR Activated Clotting Time POC ABG pH POC ABG pCO2 POC ABG pO2 Sodium Potassium Chloride Carbon Dioxide BUN Creatinine Glucose POC Glucose 142 H 153 H 129 H Calcium Magnesium Direct Bilirubin AST ALT Alkaline Phosphatase Total Creatine Kinase CK-MB (CK-2) CK-MB (CK-2) Rel Index Troponin T C-Reactive Protein Total Protein Albumin Triglycerides Ur Specific [place] Urine WBC (Auto) Miscellaneous Test 04/09/17 04/09/17 04/09/17 08:20 11:21 17:37 WBC RBC Hgb Hct MCV MCH RDW Plt Count Lymph % (Auto) [place] % (Auto) Eos % (Auto) Baso % (Auto) Lymph # Baso # Seg Neutrophils % Lymphocytes % (Manual) Monocytes % (Manual) Nucleated RBC % Seg Neutrophils # Seg Neutrophils # Man Monocytes # (Manual) PT INR Activated Clotting Time POC ABG pH POC ABG pCO2 POC ABG pO2 Sodium 147 H Potassium Chloride 108.8 H Carbon Dioxide BUN 39 H Creatinine 0.5 L Glucose 138 H POC Glucose 152 H 109 H Calcium Magnesium Direct Bilirubin AST ALT Alkaline Phosphatase Total Creatine Kinase CK-MB (CK-2) CK-MB (CK-2) Rel Index Troponin T C-Reactive Protein Total Protein Albumin Triglycerides Ur Specific [place] Urine WBC (Auto) Miscellaneous Test 04/10/17 04/10/17 04/10/17 00:13 04:16 04:16 WBC RBC Hgb 11.5 L Hct MCV 96 H MCH RDW Plt Count 103 L Lymph % (Auto) 11.1 L [place] % (Auto) Eos % (Auto) Baso % (Auto) Lymph # Baso # Seg Neutrophils % 81.5 H Lymphocytes % (Manual) Monocytes % (Manual) Nucleated RBC % Seg Neutrophils # 8.8 H Seg Neutrophils # Man Monocytes # (Manual) PT INR Activated Clotting Time POC ABG pH POC ABG pCO2 POC ABG pO2 Sodium 148 H Potassium Chloride 109.0 H Carbon Dioxide BUN 36 H Creatinine 0.5 L Glucose 131 H POC Glucose 127 H Calcium 8.1 L Magnesium 2.40 H Direct Bilirubin AST 206 H ALT 228 H Alkaline Phosphatase 178 H Total Creatine Kinase CK-MB (CK-2) CK-MB (CK-2) Rel Index Troponin T C-Reactive Protein Total Protein Albumin 2.8 L Triglycerides Ur Specific [place] Urine WBC (Auto) Miscellaneous Test 04/10/17 04/10/17 04/10/17 06:01 11:57 18:27 WBC RBC Hgb Hct MCV MCH RDW Plt Count Lymph % (Auto) [place] % (Auto) Eos % (Auto) Baso % (Auto) Lymph # Baso # Seg Neutrophils % Lymphocytes % (Manual) Monocytes % (Manual) Nucleated RBC % Seg Neutrophils # Seg Neutrophils # Man Monocytes # (Manual) PT INR Activated Clotting Time POC ABG pH POC ABG pCO2 POC ABG pO2 Sodium Potassium Chloride Carbon Dioxide BUN Creatinine Glucose POC Glucose 108 H 154 H 130 H Calcium Magnesium Direct Bilirubin AST ALT Alkaline Phosphatase Total Creatine Kinase CK-MB (CK-2) CK-MB (CK-2) Rel Index Troponin T C-Reactive Protein Total Protein Albumin Triglycerides Ur Specific [place] Urine WBC (Auto) Miscellaneous Test 04/11/17 04/11/17 04/12/17 12:25 17:10 00:22 WBC RBC Hgb Hct MCV MCH RDW Plt Count Lymph % (Auto) [place] % (Auto) Eos % (Auto) Baso % (Auto) Lymph # Baso # Seg Neutrophils % Lymphocytes % (Manual) Monocytes % (Manual) Nucleated RBC % Seg Neutrophils # Seg Neutrophils # Man Monocytes # (Manual) PT INR Activated Clotting Time POC ABG pH POC ABG pCO2 POC ABG pO2 Sodium Potassium Chloride Carbon Dioxide BUN Creatinine Glucose POC Glucose 107 H 129 H 128 H Calcium Magnesium Direct Bilirubin AST ALT Alkaline Phosphatase Total Creatine Kinase CK-MB (CK-2) CK-MB (CK-2) Rel Index Troponin T C-Reactive Protein Total Protein Albumin Triglycerides Ur Specific [place] Urine WBC (Auto) Miscellaneous Test 04/12/17 04/12/17 04/12/17 05:00 11:57 17:47 WBC RBC Hgb Hct MCV MCH RDW Plt Count Lymph % (Auto) [place] % (Auto) Eos % (Auto) Baso % (Auto) Lymph # Baso # Seg Neutrophils % Lymphocytes % (Manual) Monocytes % (Manual) Nucleated RBC % Seg Neutrophils # Seg Neutrophils # Man Monocytes # (Manual) PT INR Activated Clotting Time POC ABG pH POC ABG pCO2 POC ABG pO2 Sodium Potassium Chloride Carbon Dioxide BUN Creatinine Glucose POC Glucose 140 H 142 H Calcium Magnesium Direct Bilirubin AST 158 H ALT 184 H Alkaline Phosphatase 170 H Total Creatine Kinase CK-MB (CK-2) CK-MB (CK-2) Rel Index Troponin T C-Reactive Protein Total Protein Albumin 2.8 L Triglycerides Ur Specific [place] Urine WBC (Auto) Miscellaneous Test 04/12/17 04/12/17 04/13/17 21:36 21:36 01:37 WBC RBC Hgb Hct MCV MCH RDW Plt Count Lymph % (Auto) [place] % (Auto) Eos % (Auto) Baso % (Auto) Lymph # Baso # Seg Neutrophils % Lymphocytes % (Manual) Monocytes % (Manual) Nucleated RBC % Seg Neutrophils # Seg Neutrophils # Man Monocytes # (Manual) PT INR Activated Clotting Time POC ABG pH POC ABG pCO2 POC ABG pO2 Sodium Potassium Chloride Carbon Dioxide BUN Creatinine Glucose POC Glucose 126 H Calcium Magnesium Direct Bilirubin AST ALT Alkaline Phosphatase Total Creatine Kinase 1404 H CK-MB (CK-2) 8.0 H CK-MB (CK-2) Rel Index Troponin T 0.767 H* C-Reactive Protein Total Protein Albumin Triglycerides Ur Specific [place] Urine WBC (Auto) Miscellaneous Test 04/13/17 04/13/17 04/13/17 04:45 04:52 12:17 WBC RBC Hgb Hct MCV MCH RDW Plt Count Lymph % (Auto) [place] % (Auto) Eos % (Auto) Baso % (Auto) Lymph # Baso # Seg Neutrophils % Lymphocytes % (Manual) Monocytes % (Manual) Nucleated RBC % Seg Neutrophils # Seg Neutrophils # Man Monocytes # (Manual) PT INR Activated Clotting Time POC ABG pH POC ABG pCO2 POC ABG pO2 Sodium 148 H Potassium Chloride 112.8 H Carbon Dioxide BUN 33 H Creatinine 0.4 L Glucose 121 H POC Glucose 126 H 149 H Calcium Magnesium Direct Bilirubin AST 160 H ALT 189 H Alkaline Phosphatase 166 H Total Creatine Kinase CK-MB (CK-2) CK-MB (CK-2) Rel Index Troponin T C-Reactive Protein Total Protein Albumin 2.6 L Triglycerides Ur Specific [place] Urine WBC (Auto) Miscellaneous Test 04/13/17 04/14/17 04/14/17 17:45 00:20 00:45 WBC RBC Hgb Hct MCV MCH RDW Plt Count Lymph % (Auto) [place] % (Auto) Eos % (Auto) Baso % (Auto) Lymph # Baso # Seg Neutrophils % Lymphocytes % (Manual) Monocytes % (Manual) Nucleated RBC % Seg Neutrophils # Seg Neutrophils # Man Monocytes # (Manual) PT INR Activated Clotting Time POC ABG pH POC ABG pCO2 POC ABG pO2 Sodium Potassium Chloride Carbon Dioxide BUN Creatinine Glucose POC Glucose 130 H 144 H 144 H Calcium Magnesium Direct Bilirubin AST ALT Alkaline Phosphatase Total Creatine Kinase CK-MB (CK-2) CK-MB (CK-2) Rel Index Troponin T C-Reactive Protein Total Protein Albumin Triglycerides Ur Specific [place] Urine WBC (Auto) Miscellaneous Test 04/14/17 04/14/17 04/14/17 05:40 11:06 11:31 WBC RBC Hgb Hct MCV MCH RDW Plt Count Lymph % (Auto) [place] % (Auto) Eos % (Auto) Baso % (Auto) Lymph # Baso # Seg Neutrophils % Lymphocytes % (Manual) Monocytes % (Manual) Nucleated RBC % Seg Neutrophils # Seg Neutrophils # Man Monocytes # (Manual) PT INR Activated Clotting Time POC ABG pH POC ABG pCO2 POC ABG pO2 Sodium Potassium Chloride Carbon Dioxide BUN Creatinine Glucose POC Glucose 139 H 123 H Calcium Magnesium Direct Bilirubin AST ALT Alkaline Phosphatase Total Creatine Kinase CK-MB (CK-2) CK-MB (CK-2) Rel Index Troponin T C-Reactive Protein Total Protein Albumin Triglycerides Ur Specific [place] 1.033 H Urine WBC (Auto) > 182.0 H Miscellaneous Test 04/14/17 04/14/17 04/15/17 18:00 23:52 05:15 WBC 12.5 H RBC 3.38 L Hgb 10.6 L Hct 32.7 L MCV 97 H MCH RDW Plt Count 107 L Lymph % (Auto) 8.7 L [place] % (Auto) Eos % (Auto) Baso % (Auto) Lymph # 1.1 L Baso # Seg Neutrophils % 86.1 H Lymphocytes % (Manual) Monocytes % (Manual) Nucleated RBC % Seg Neutrophils # 10.7 H Seg Neutrophils # Man Monocytes # (Manual) PT INR Activated Clotting Time POC ABG pH POC ABG pCO2 POC ABG pO2 Sodium Potassium Chloride Carbon Dioxide BUN Creatinine Glucose POC Glucose 133 H 133 H Calcium Magnesium Direct Bilirubin AST ALT Alkaline Phosphatase Total Creatine Kinase CK-MB (CK-2) CK-MB (CK-2) Rel Index Troponin T C-Reactive Protein Total Protein Albumin Triglycerides Ur Specific [place] Urine WBC (Auto) Miscellaneous Test 04/15/17 04/15/17 04/15/17 05:15 05:25 11:50 WBC RBC Hgb Hct MCV MCH RDW Plt Count Lymph % (Auto) [place] % (Auto) Eos % (Auto) Baso % (Auto) Lymph # Baso # Seg Neutrophils % Lymphocytes % (Manual) Monocytes % (Manual) Nucleated RBC % Seg Neutrophils # Seg Neutrophils # Man Monocytes # (Manual) PT INR Activated Clotting Time POC ABG pH POC ABG pCO2 POC ABG pO2 Sodium 149 H Potassium 3.5 L Chloride 114.1 H Carbon Dioxide 21 L BUN 29 H Creatinine 0.4 L Glucose 128 H POC Glucose 133 H 107 H Calcium 8.3 L Magnesium Direct Bilirubin 0.4 H AST 149 H ALT 182 H Alkaline Phosphatase 143 H Total Creatine Kinase CK-MB (CK-2) CK-MB (CK-2) Rel Index Troponin T C-Reactive Protein Total Protein Albumin 2.5 L Triglycerides Ur Specific [place] Urine WBC (Auto) Miscellaneous Test 04/15/17 04/16/17 04/16/17 16:55 00:02 03:17 WBC RBC 3.39 L Hgb 10.5 L Hct 32.4 L MCV 96 H MCH RDW Plt Count 106 L Lymph % (Auto) 6.7 L [place] % (Auto) Eos % (Auto) Baso % (Auto) Lymph # 0.6 L Baso # Seg Neutrophils % 86.8 H Lymphocytes % (Manual) Monocytes % (Manual) Nucleated RBC % Seg Neutrophils # 8.2 H Seg Neutrophils # Man Monocytes # (Manual) PT INR Activated Clotting Time POC ABG pH POC ABG pCO2 POC ABG pO2 Sodium Potassium Chloride Carbon Dioxide BUN Creatinine Glucose POC Glucose 146 H 148 H Calcium Magnesium Direct Bilirubin AST ALT Alkaline Phosphatase Total Creatine Kinase CK-MB (CK-2) CK-MB (CK-2) Rel Index Troponin T C-Reactive Protein Total Protein Albumin Triglycerides Ur Specific [place] Urine WBC (Auto) Miscellaneous Test 04/16/17 04/16/17 04/16/17 03:17 05:19 11:13 WBC RBC Hgb Hct MCV MCH RDW Plt Count Lymph % (Auto) [place] % (Auto) Eos % (Auto) Baso % (Auto) Lymph # Baso # Seg Neutrophils % Lymphocytes % (Manual) Monocytes % (Manual) Nucleated RBC % Seg Neutrophils # Seg Neutrophils # Man Monocytes # (Manual) PT INR Activated Clotting Time POC ABG pH POC ABG pCO2 POC ABG pO2 Sodium 149 H Potassium Chloride 111.1 H Carbon Dioxide 20 L BUN 27 H Creatinine 0.3 L Glucose 156 H POC Glucose 171 H 169 H Calcium 8.3 L Magnesium Direct Bilirubin AST ALT Alkaline Phosphatase Total Creatine Kinase CK-MB (CK-2) CK-MB (CK-2) Rel Index Troponin T C-Reactive Protein Total Protein Albumin Triglycerides Ur Specific [place] Urine WBC (Auto) Miscellaneous Test 04/16/17 04/17/17 04/17/17 17:03 00:00 05:09 WBC RBC Hgb Hct MCV MCH RDW Plt Count Lymph % (Auto) [place] % (Auto) Eos % (Auto) Baso % (Auto) Lymph # Baso # Seg Neutrophils % Lymphocytes % (Manual) Monocytes % (Manual) Nucleated RBC % Seg Neutrophils # Seg Neutrophils # Man Monocytes # (Manual) PT INR Activated Clotting Time POC ABG pH POC ABG pCO2 POC ABG pO2 Sodium Potassium Chloride Carbon Dioxide BUN Creatinine Glucose POC Glucose 151 H 165 H 145 H Calcium Magnesium Direct Bilirubin AST ALT Alkaline Phosphatase Total Creatine Kinase CK-MB (CK-2) CK-MB (CK-2) Rel Index Troponin T C-Reactive Protein Total Protein Albumin Triglycerides Ur Specific [place] Urine WBC (Auto) Miscellaneous Test 04/17/17 04/17/17 04/18/17 11:38 17:47 00:01 WBC RBC Hgb Hct MCV MCH RDW Plt Count Lymph % (Auto) [place] % (Auto) Eos % (Auto) Baso % (Auto) Lymph # Baso # Seg Neutrophils % Lymphocytes % (Manual) Monocytes % (Manual) Nucleated RBC % Seg Neutrophils # Seg Neutrophils # Man Monocytes # (Manual) PT INR Activated Clotting Time POC ABG pH POC ABG pCO2 POC ABG pO2 Sodium Potassium Chloride Carbon Dioxide BUN Creatinine Glucose POC Glucose 170 H 161 H 131 H Calcium Magnesium Direct Bilirubin AST ALT Alkaline Phosphatase Total Creatine Kinase CK-MB (CK-2) CK-MB (CK-2) Rel Index Troponin T C-Reactive Protein Total Protein Albumin Triglycerides Ur Specific [place] Urine WBC (Auto) Miscellaneous Test 04/18/17 04/18/17 04/18/17 03:55 03:55 05:30 WBC RBC 3.05 L Hgb 9.8 L Hct 29.0 L MCV 95 H MCH RDW Plt Count 113 L Lymph % (Auto) [place] % (Auto) Eos % (Auto) 5.3 H Baso % (Auto) Lymph # Baso # Seg Neutrophils % 71.5 H Lymphocytes % (Manual) Monocytes % (Manual) Nucleated RBC % Seg Neutrophils # Seg Neutrophils # Man Monocytes # (Manual) PT INR Activated Clotting Time POC ABG pH 7.460 H POC ABG pCO2 30.8 L POC ABG pO2 129 H Sodium Potassium Chloride Carbon Dioxide 21 L BUN 25 H Creatinine 0.4 L Glucose 123 H POC Glucose Calcium 8.3 L Magnesium Direct Bilirubin AST ALT Alkaline Phosphatase Total Creatine Kinase CK-MB (CK-2) CK-MB (CK-2) Rel Index Troponin T C-Reactive Protein Total Protein Albumin Triglycerides Ur Specific [place] Urine WBC (Auto) Miscellaneous Test 04/18/17 04/18/17 04/19/17 17:10 23:40 04:36 WBC RBC 3.21 L Hgb 10.2 L Hct 30.4 L MCV 95 H MCH RDW Plt Count 131 L Lymph % (Auto) 12.1 L [place] % (Auto) Eos % (Auto) 4.7 H Baso % (Auto) 2.4 H Lymph # 0.9 L Baso # 0.2 H Seg Neutrophils % 75.0 H Lymphocytes % (Manual) Monocytes % (Manual) Nucleated RBC % Seg Neutrophils # Seg Neutrophils # Man Monocytes # (Manual) PT INR Activated Clotting Time POC ABG pH POC ABG pCO2 POC ABG pO2 Sodium Potassium Chloride Carbon Dioxide BUN Creatinine Glucose POC Glucose 135 H 157 H Calcium Magnesium Direct Bilirubin AST ALT Alkaline Phosphatase Total Creatine Kinase CK-MB (CK-2) CK-MB (CK-2) Rel Index Troponin T C-Reactive Protein Total Protein Albumin Triglycerides Ur Specific [place] Urine WBC (Auto) Miscellaneous Test 04/19/17 04/19/17 04/19/17 04:36 05:12 06:50 WBC RBC Hgb Hct MCV MCH RDW Plt Count Lymph % (Auto) [place] % (Auto) Eos % (Auto) Baso % (Auto) Lymph # Baso # Seg Neutrophils % Lymphocytes % (Manual) Monocytes % (Manual) Nucleated RBC % Seg Neutrophils # Seg Neutrophils # Man Monocytes # (Manual) PT INR Activated Clotting Time POC ABG pH 7.516 H POC ABG pCO2 28.0 L POC ABG pO2 Sodium Potassium Chloride Carbon Dioxide 21 L BUN 23 H Creatinine 0.2 L Glucose 137 H POC Glucose 131 H Calcium 7.9 L Magnesium Direct Bilirubin AST ALT Alkaline Phosphatase Total Creatine Kinase CK-MB (CK-2) CK-MB (CK-2) Rel Index Troponin T C-Reactive Protein Total Protein Albumin Triglycerides Ur Specific [place] Urine WBC (Auto) Miscellaneous Test 04/19/17 04/19/17 04/20/17 12:36 17:42 00:12 WBC RBC Hgb Hct MCV MCH RDW Plt Count Lymph % (Auto) [place] % (Auto) Eos % (Auto) Baso % (Auto) Lymph # Baso # Seg Neutrophils % Lymphocytes % (Manual) Monocytes % (Manual) Nucleated RBC % Seg Neutrophils # Seg Neutrophils # Man Monocytes # (Manual) PT INR Activated Clotting Time POC ABG pH POC ABG pCO2 POC ABG pO2 Sodium Potassium Chloride Carbon Dioxide BUN Creatinine Glucose POC Glucose 128 H 140 H 132 H Calcium Magnesium Direct Bilirubin AST ALT Alkaline Phosphatase Total Creatine Kinase CK-MB (CK-2) CK-MB (CK-2) Rel Index Troponin T C-Reactive Protein Total Protein Albumin Triglycerides Ur Specific [place] Urine WBC (Auto) Miscellaneous Test 04/20/17 04/20/17 04/20/17 03:35 03:35 05:10 WBC RBC 3.34 L Hgb 10.4 L Hct 31.6 L MCV 95 H MCH RDW Plt Count Lymph % (Auto) 12.9 L [place] % (Auto) Eos % (Auto) Baso % (Auto) Lymph # Baso # Seg Neutrophils % 77.3 H Lymphocytes % (Manual) Monocytes % (Manual) Nucleated RBC % Seg Neutrophils # Seg Neutrophils # Man Monocytes # (Manual) PT INR Activated Clotting Time POC ABG pH POC ABG pCO2 POC ABG pO2 Sodium Potassium Chloride Carbon Dioxide BUN Creatinine 0.3 L Glucose 155 H POC Glucose 135 H Calcium 7.8 L Magnesium Direct Bilirubin AST ALT Alkaline Phosphatase Total Creatine Kinase CK-MB (CK-2) CK-MB (CK-2) Rel Index Troponin T C-Reactive Protein Total Protein Albumin Triglycerides Ur Specific [place] Urine WBC (Auto) Miscellaneous Test 04/20/17 04/20/17 04/21/17 12:49 18:21 00:05 WBC RBC Hgb Hct MCV MCH RDW Plt Count Lymph % (Auto) [place] % (Auto) Eos % (Auto) Baso % (Auto) Lymph # Baso # Seg Neutrophils % Lymphocytes % (Manual) Monocytes % (Manual) Nucleated RBC % Seg Neutrophils # Seg Neutrophils # Man Monocytes # (Manual) PT INR Activated Clotting Time POC ABG pH POC ABG pCO2 POC ABG pO2 Sodium Potassium Chloride Carbon Dioxide BUN Creatinine Glucose POC Glucose 155 H 165 H 141 H Calcium Magnesium Direct Bilirubin AST ALT Alkaline Phosphatase Total Creatine Kinase CK-MB (CK-2) CK-MB (CK-2) Rel Index Troponin T C-Reactive Protein Total Protein Albumin Triglycerides Ur Specific [place] Urine WBC (Auto) Miscellaneous Test 04/21/17 04/21/17 04/21/17 06:00 12:11 17:04 WBC RBC Hgb Hct MCV MCH RDW Plt Count Lymph % (Auto) [place] % (Auto) Eos % (Auto) Baso % (Auto) Lymph # Baso # Seg Neutrophils % Lymphocytes % (Manual) Monocytes % (Manual) Nucleated RBC % Seg Neutrophils # Seg Neutrophils # Man Monocytes # (Manual) PT INR Activated Clotting Time POC ABG pH POC ABG pCO2 POC ABG pO2 Sodium Potassium Chloride Carbon Dioxide BUN Creatinine Glucose POC Glucose 152 H 165 H 156 H Calcium Magnesium Direct Bilirubin AST ALT Alkaline Phosphatase Total Creatine Kinase CK-MB (CK-2) CK-MB (CK-2) Rel Index Troponin T C-Reactive Protein Total Protein Albumin Triglycerides Ur Specific [place] Urine WBC (Auto) Miscellaneous Test 04/21/17 04/21/17 04/22/17 22:00 23:59 05:49 WBC RBC Hgb Hct MCV MCH RDW Plt Count Lymph % (Auto) [place] % (Auto) Eos % (Auto) Baso % (Auto) Lymph # Baso # Seg Neutrophils % Lymphocytes % (Manual) Monocytes % (Manual) Nucleated RBC % Seg Neutrophils # Seg Neutrophils # Man Monocytes # (Manual) PT INR Activated Clotting Time POC ABG pH POC ABG pCO2 POC ABG pO2 Sodium Potassium Chloride Carbon Dioxide BUN Creatinine Glucose POC Glucose 166 H 173 H Calcium Magnesium Direct Bilirubin AST ALT Alkaline Phosphatase Total Creatine Kinase CK-MB (CK-2) CK-MB (CK-2) Rel Index Troponin T C-Reactive Protein Total Protein Albumin Triglycerides Ur Specific [place] Urine WBC (Auto) 10.0 H Miscellaneous Test 04/22/17 04/22/17 04/23/17 11:11 18:04 00:37 WBC RBC Hgb Hct MCV MCH RDW Plt Count Lymph % (Auto) [place] % (Auto) Eos % (Auto) Baso % (Auto) Lymph # Baso # Seg Neutrophils % Lymphocytes % (Manual) Monocytes % (Manual) Nucleated RBC % Seg Neutrophils # Seg Neutrophils # Man Monocytes # (Manual) PT INR Activated Clotting Time POC ABG pH POC ABG pCO2 POC ABG pO2 Sodium Potassium Chloride Carbon Dioxide BUN Creatinine Glucose POC Glucose 172 H 140 H 135 H Calcium Magnesium Direct Bilirubin AST ALT Alkaline Phosphatase Total Creatine Kinase CK-MB (CK-2) CK-MB (CK-2) Rel Index Troponin T C-Reactive Protein Total Protein Albumin Triglycerides Ur Specific [place] Urine WBC (Auto) Miscellaneous Test 04/23/17 04/23/17 04/23/17 05:33 06:20 11:10 WBC RBC 3.19 L Hgb 9.9 L Hct 30.0 L MCV MCH RDW Plt Count Lymph % (Auto) 8.0 L [place] % (Auto) Eos % (Auto) Baso % (Auto) Lymph # 0.8 L Baso # Seg Neutrophils % 84.5 H Lymphocytes % (Manual) Monocytes % (Manual) Nucleated RBC % Seg Neutrophils # 8.2 H Seg Neutrophils # Man Monocytes # (Manual) PT INR Activated Clotting Time POC ABG pH POC ABG pCO2 POC ABG pO2 Sodium Potassium Chloride Carbon Dioxide BUN Creatinine Glucose POC Glucose 134 H 134 H Calcium Magnesium Direct Bilirubin AST ALT Alkaline Phosphatase Total Creatine Kinase CK-MB (CK-2) CK-MB (CK-2) Rel Index Troponin T C-Reactive Protein Total Protein Albumin Triglycerides Ur Specific [place] Urine WBC (Auto) Miscellaneous Test 04/23/17 04/24/17 04/24/17 17:26 00:53 06:46 WBC RBC Hgb Hct MCV MCH RDW Plt Count Lymph % (Auto) [place] % (Auto) Eos % (Auto) Baso % (Auto) Lymph # Baso # Seg Neutrophils % Lymphocytes % (Manual) Monocytes % (Manual) Nucleated RBC % Seg Neutrophils # Seg Neutrophils # Man Monocytes # (Manual) PT INR Activated Clotting Time POC ABG pH POC ABG pCO2 POC ABG pO2 Sodium Potassium Chloride Carbon Dioxide BUN Creatinine Glucose POC Glucose 164 H 146 H 125 H Calcium Magnesium Direct Bilirubin AST ALT Alkaline Phosphatase Total Creatine Kinase CK-MB (CK-2) CK-MB (CK-2) Rel Index Troponin T C-Reactive Protein Total Protein Albumin Triglycerides Ur Specific [place] Urine WBC (Auto) Miscellaneous Test 04/24/17 04/24/17 04/24/17 11:55 17:50 23:36 WBC RBC Hgb Hct MCV MCH RDW Plt Count Lymph % (Auto) [place] % (Auto) Eos % (Auto) Baso % (Auto) Lymph # Baso # Seg Neutrophils % Lymphocytes % (Manual) Monocytes % (Manual) Nucleated RBC % Seg Neutrophils # Seg Neutrophils # Man Monocytes # (Manual) PT INR Activated Clotting Time POC ABG pH POC ABG pCO2 POC ABG pO2 Sodium Potassium Chloride Carbon Dioxide BUN Creatinine Glucose POC Glucose 156 H 146 H 131 H Calcium Magnesium Direct Bilirubin AST ALT Alkaline Phosphatase Total Creatine Kinase CK-MB (CK-2) CK-MB (CK-2) Rel Index Troponin T C-Reactive Protein Total Protein Albumin Triglycerides Ur Specific [place] Urine WBC (Auto) Miscellaneous Test 04/25/17 04/25/17 04/25/17 04:51 05:16 07:07 WBC RBC Hgb Hct MCV MCH RDW Plt Count Lymph % (Auto) [place] % (Auto) Eos % (Auto) Baso % (Auto) Lymph # Baso # Seg Neutrophils % Lymphocytes % (Manual) Monocytes % (Manual) Nucleated RBC % Seg Neutrophils # Seg Neutrophils # Man Monocytes # (Manual) PT INR Activated Clotting Time POC ABG pH POC ABG pCO2 POC ABG pO2 Sodium Potassium Chloride Carbon Dioxide BUN Creatinine Glucose POC Glucose 139 H Calcium Magnesium Direct Bilirubin AST 105 H ALT 204 H Alkaline Phosphatase 189 H Total Creatine Kinase CK-MB (CK-2) CK-MB (CK-2) Rel Index Troponin T C-Reactive Protein Total Protein Albumin 2.4 L Triglycerides Ur Specific [place] Urine WBC (Auto) Miscellaneous Test Flexitest 1 H 04/25/17 04/25/17 04/25/17 12:29 17:23 23:32 WBC RBC Hgb Hct MCV MCH RDW Plt Count Lymph % (Auto) [place] % (Auto) Eos % (Auto) Baso % (Auto) Lymph # Baso # Seg Neutrophils % Lymphocytes % (Manual) Monocytes % (Manual) Nucleated RBC % Seg Neutrophils # Seg Neutrophils # Man Monocytes # (Manual) PT INR Activated Clotting Time POC ABG pH POC ABG pCO2 POC ABG pO2 Sodium Potassium Chloride Carbon Dioxide BUN Creatinine Glucose POC Glucose 132 H 133 H 128 H Calcium Magnesium Direct Bilirubin AST ALT Alkaline Phosphatase Total Creatine Kinase CK-MB (CK-2) CK-MB (CK-2) Rel Index Troponin T C-Reactive Protein Total Protein Albumin Triglycerides Ur Specific [place] Urine WBC (Auto) Miscellaneous Test 04/26/17 04/26/17 04/26/17 05:24 11:28 17:09 WBC RBC Hgb Hct MCV MCH RDW Plt Count Lymph % (Auto) [place] % (Auto) Eos % (Auto) Baso % (Auto) Lymph # Baso # Seg Neutrophils % Lymphocytes % (Manual) Monocytes % (Manual) Nucleated RBC % Seg Neutrophils # Seg Neutrophils # Man Monocytes # (Manual) PT INR Activated Clotting Time POC ABG pH POC ABG pCO2 POC ABG pO2 Sodium Potassium Chloride Carbon Dioxide BUN Creatinine Glucose POC Glucose 132 H 146 H 141 H Calcium Magnesium Direct Bilirubin AST ALT Alkaline Phosphatase Total Creatine Kinase CK-MB (CK-2) CK-MB (CK-2) Rel Index Troponin T C-Reactive Protein Total Protein Albumin Triglycerides Ur Specific [place] Urine WBC (Auto) Miscellaneous Test 04/26/17 04/27/17 04/27/17 23:52 05:40 05:40 WBC RBC 3.22 L Hgb 10.0 L Hct 29.9 L MCV MCH RDW Plt Count Lymph % (Auto) [place] % (Auto) Eos % (Auto) Baso % (Auto) Lymph # Baso # Seg Neutrophils % 76.6 H Lymphocytes % (Manual) Monocytes % (Manual) Nucleated RBC % Seg Neutrophils # Seg Neutrophils # Man Monocytes # (Manual) PT INR Activated Clotting Time POC ABG pH POC ABG pCO2 POC ABG pO2 Sodium Potassium Chloride Carbon Dioxide BUN Creatinine Glucose POC Glucose 140 H Calcium Magnesium Direct Bilirubin AST 66 H ALT 137 H Alkaline Phosphatase 169 H Total Creatine Kinase CK-MB (CK-2) CK-MB (CK-2) Rel Index Troponin T C-Reactive Protein Total Protein 6.2 L Albumin 2.6 L Triglycerides Ur Specific [place] Urine WBC (Auto) Miscellaneous Test 04/27/17 04/27/17 04/27/17 05:40 06:10 11:13 WBC RBC Hgb Hct MCV MCH RDW Plt Count Lymph % (Auto) [place] % (Auto) Eos % (Auto) Baso % (Auto) Lymph # Baso # Seg Neutrophils % Lymphocytes % (Manual) Monocytes % (Manual) Nucleated RBC % Seg Neutrophils # Seg Neutrophils # Man Monocytes # (Manual) PT INR Activated Clotting Time POC ABG pH POC ABG pCO2 POC ABG pO2 Sodium Potassium Chloride Carbon Dioxide BUN Creatinine 0.2 L Glucose 139 H POC Glucose 130 H 151 H Calcium Magnesium Direct Bilirubin AST ALT Alkaline Phosphatase Total Creatine Kinase CK-MB (CK-2) CK-MB (CK-2) Rel Index Troponin T C-Reactive Protein Total Protein Albumin Triglycerides Ur Specific [place] Urine WBC (Auto) Miscellaneous Test 04/27/17 04/27/17 04/28/17 17:37 23:19 05:24 WBC RBC Hgb Hct MCV MCH RDW Plt Count Lymph % (Auto) [place] % (Auto) Eos % (Auto) Baso % (Auto) Lymph # Baso # Seg Neutrophils % Lymphocytes % (Manual) Monocytes % (Manual) Nucleated RBC % Seg Neutrophils # Seg Neutrophils # Man Monocytes # (Manual) PT INR Activated Clotting Time POC ABG pH POC ABG pCO2 POC ABG pO2 Sodium Potassium Chloride Carbon Dioxide BUN Creatinine Glucose POC Glucose 159 H 130 H 132 H Calcium Magnesium Direct Bilirubin AST ALT Alkaline Phosphatase Total Creatine Kinase CK-MB (CK-2) CK-MB (CK-2) Rel Index Troponin T C-Reactive Protein Total Protein Albumin Triglycerides Ur Specific [place] Urine WBC (Auto) Miscellaneous Test 04/28/17 04/28/17 04/28/17 11:15 17:38 23:23 WBC RBC Hgb Hct MCV MCH RDW Plt Count Lymph % (Auto) [place] % (Auto) Eos % (Auto) Baso % (Auto) Lymph # Baso # Seg Neutrophils % Lymphocytes % (Manual) Monocytes % (Manual) Nucleated RBC % Seg Neutrophils # Seg Neutrophils # Man Monocytes # (Manual) PT INR Activated Clotting Time POC ABG pH POC ABG pCO2 POC ABG pO2 Sodium Potassium Chloride Carbon Dioxide BUN Creatinine Glucose POC Glucose 162 H 133 H 138 H Calcium Magnesium Direct Bilirubin AST ALT Alkaline Phosphatase Total Creatine Kinase CK-MB (CK-2) CK-MB (CK-2) Rel Index Troponin T C-Reactive Protein Total Protein Albumin Triglycerides Ur Specific [place] Urine WBC (Auto) Miscellaneous Test 04/29/17 04/29/17 04/29/17 05:15 12:55 17:21 WBC RBC Hgb Hct MCV MCH RDW Plt Count Lymph % (Auto) [place] % (Auto) Eos % (Auto) Baso % (Auto) Lymph # Baso # Seg Neutrophils % Lymphocytes % (Manual) Monocytes % (Manual) Nucleated RBC % Seg Neutrophils # Seg Neutrophils # Man Monocytes # (Manual) PT INR Activated Clotting Time POC ABG pH POC ABG pCO2 POC ABG pO2 Sodium Potassium Chloride Carbon Dioxide BUN Creatinine Glucose POC Glucose 135 H 127 H 138 H Calcium Magnesium Direct Bilirubin AST ALT Alkaline Phosphatase Total Creatine Kinase CK-MB (CK-2) CK-MB (CK-2) Rel Index Troponin T C-Reactive Protein Total Protein Albumin Triglycerides Ur Specific [place] Urine WBC (Auto) Miscellaneous Test 04/29/17 04/30/17 04/30/17 23:52 04:55 12:22 WBC RBC Hgb Hct MCV MCH RDW Plt Count Lymph % (Auto) [place] % (Auto) Eos % (Auto) Baso % (Auto) Lymph # Baso # Seg Neutrophils % Lymphocytes % (Manual) Monocytes % (Manual) Nucleated RBC % Seg Neutrophils # Seg Neutrophils # Man Monocytes # (Manual) PT INR Activated Clotting Time POC ABG pH POC ABG pCO2 POC ABG pO2 Sodium Potassium Chloride Carbon Dioxide BUN Creatinine Glucose POC Glucose 142 H 146 H 132 H Calcium Magnesium Direct Bilirubin AST ALT Alkaline Phosphatase Total Creatine Kinase CK-MB (CK-2) CK-MB (CK-2) Rel Index Troponin T C-Reactive Protein Total Protein Albumin Triglycerides Ur Specific [place] Urine WBC (Auto) Miscellaneous Test 04/30/17 04/30/17 04/30/17 14:25 17:47 18:20 WBC RBC Hgb Hct MCV MCH RDW Plt Count Lymph % (Auto) [place] % (Auto) Eos % (Auto) Baso % (Auto) Lymph # Baso # Seg Neutrophils % Lymphocytes % (Manual) Monocytes % (Manual) Nucleated RBC % Seg Neutrophils # Seg Neutrophils # Man Monocytes # (Manual) PT INR Activated Clotting Time POC ABG pH 7.551 H POC ABG pCO2 32.7 L POC ABG pO2 Sodium Potassium Chloride Carbon Dioxide BUN 21 H Creatinine 0.2 L Glucose 141 H POC Glucose 139 H Calcium Magnesium Direct Bilirubin AST ALT Alkaline Phosphatase Total Creatine Kinase CK-MB (CK-2) CK-MB (CK-2) Rel Index Troponin T C-Reactive Protein Total Protein Albumin Triglycerides Ur Specific [place] Urine WBC (Auto) Miscellaneous Test 05/01/17 05/01/17 05/01/17 01:26 05:30 05:30 WBC RBC 3.49 L Hgb 10.3 L Hct 31.9 L MCV MCH RDW Plt Count Lymph % (Auto) [place] % (Auto) 8.1 H Eos % (Auto) Baso % (Auto) Lymph # Baso # Seg Neutrophils % 71.3 H Lymphocytes % (Manual) Monocytes % (Manual) Nucleated RBC % Seg Neutrophils # Seg Neutrophils # Man Monocytes # (Manual) PT INR Activated Clotting Time POC ABG pH POC ABG pCO2 POC ABG pO2 Sodium 136 L Potassium Chloride 97.6 L Carbon Dioxide BUN Creatinine 0.2 L Glucose 123 H POC Glucose 116 H Calcium Magnesium Direct Bilirubin AST 71 H ALT 125 H Alkaline Phosphatase 158 H Total Creatine Kinase CK-MB (CK-2) CK-MB (CK-2) Rel Index Troponin T C-Reactive Protein Total Protein Albumin 2.6 L Triglycerides Ur Specific [place] Urine WBC (Auto) Miscellaneous Test 05/01/17 05/01/17 05/02/17 11:59 17:23 00:08 WBC RBC Hgb Hct MCV MCH RDW Plt Count Lymph % (Auto) [place] % (Auto) Eos % (Auto) Baso % (Auto) Lymph # Baso # Seg Neutrophils % Lymphocytes % (Manual) Monocytes % (Manual) Nucleated RBC % Seg Neutrophils # Seg Neutrophils # Man Monocytes # (Manual) PT INR Activated Clotting Time POC ABG pH POC ABG pCO2 POC ABG pO2 Sodium Potassium Chloride Carbon Dioxide BUN Creatinine Glucose POC Glucose 118 H 144 H 122 H Calcium Magnesium Direct Bilirubin AST ALT Alkaline Phosphatase Total Creatine Kinase CK-MB (CK-2) CK-MB (CK-2) Rel Index Troponin T C-Reactive Protein Total Protein Albumin Triglycerides Ur Specific [place] Urine WBC (Auto) Miscellaneous Test 05/02/17 05/02/17 05/02/17 05:50 11:21 17:48 WBC RBC Hgb Hct MCV MCH RDW Plt Count Lymph % (Auto) [place] % (Auto) Eos % (Auto) Baso % (Auto) Lymph # Baso # Seg Neutrophils % Lymphocytes % (Manual) Monocytes % (Manual) Nucleated RBC % Seg Neutrophils # Seg Neutrophils # Man Monocytes # (Manual) PT INR Activated Clotting Time POC ABG pH POC ABG pCO2 POC ABG pO2 Sodium Potassium Chloride Carbon Dioxide BUN Creatinine Glucose POC Glucose 120 H 121 H 140 H Calcium Magnesium Direct Bilirubin AST ALT Alkaline Phosphatase Total Creatine Kinase CK-MB (CK-2) CK-MB (CK-2) Rel Index Troponin T C-Reactive Protein Total Protein Albumin Triglycerides Ur Specific [place] Urine WBC (Auto) Miscellaneous Test 05/02/17 05/03/17 05/03/17 23:12 05:35 11:52 WBC RBC Hgb Hct MCV MCH RDW Plt Count Lymph % (Auto) [place] % (Auto) Eos % (Auto) Baso % (Auto) Lymph # Baso # Seg Neutrophils % Lymphocytes % (Manual) Monocytes % (Manual) Nucleated RBC % Seg Neutrophils # Seg Neutrophils # Man Monocytes # (Manual) PT INR Activated Clotting Time POC ABG pH POC ABG pCO2 POC ABG pO2 Sodium Potassium Chloride Carbon Dioxide BUN Creatinine Glucose POC Glucose 128 H 113 H 126 H Calcium Magnesium Direct Bilirubin AST ALT Alkaline Phosphatase Total Creatine Kinase CK-MB (CK-2) CK-MB (CK-2) Rel Index Troponin T C-Reactive Protein Total Protein Albumin Triglycerides Ur Specific [place] Urine WBC (Auto) Miscellaneous Test 05/03/17 05/03/17 05/04/17 17:29 23:26 04:55 WBC RBC Hgb Hct MCV MCH RDW Plt Count Lymph % (Auto) Martin % (Auto) Eos % (Auto) Baso % (Auto) Lymph # Baso # Seg Neutrophils % Lymphocytes % (Manual) Monocytes % (Manual) Nucleated RBC % Seg Neutrophils # Seg Neutrophils # Man Monocytes # (Manual) PT INR Activated Clotting Time POC ABG pH POC ABG pCO2 POC ABG pO2 Sodium Potassium Chloride Carbon Dioxide BUN Creatinine Glucose POC Glucose 141 H 129 H 126 H Calcium Magnesium Direct Bilirubin AST ALT Alkaline Phosphatase Total Creatine Kinase CK-MB (CK-2) CK-MB (CK-2) Rel Index Troponin T C-Reactive Protein Total Protein Albumin Triglycerides Ur Specific [place] Urine WBC (Auto) Miscellaneous Test 05/04/17 05/04/17 05/05/17 12:09 17:46 00:06 WBC RBC Hgb Hct MCV MCH RDW Plt Count Lymph % (Auto) [place] % (Auto) Eos % (Auto) Baso % (Auto) Lymph # Baso # Seg Neutrophils % Lymphocytes % (Manual) Monocytes % (Manual) Nucleated RBC % Seg Neutrophils # Seg Neutrophils # Man Monocytes # (Manual) PT INR Activated Clotting Time POC ABG pH POC ABG pCO2 POC ABG pO2 Sodium Potassium Chloride Carbon Dioxide BUN Creatinine Glucose POC Glucose 125 H 125 H 110 H Calcium Magnesium Direct Bilirubin AST ALT Alkaline Phosphatase Total Creatine Kinase CK-MB (CK-2) CK-MB (CK-2) Rel Index Troponin T C-Reactive Protein Total Protein Albumin Triglycerides Ur Specific [place] Urine WBC (Auto) Miscellaneous Test 05/05/17 05/05/17 05/05/17 05:48 11:41 16:19 WBC RBC Hgb Hct MCV MCH RDW Plt Count Lymph % (Auto) Martin % (Auto) Eos % (Auto) Baso % (Auto) Lymph # Baso # Seg Neutrophils % Lymphocytes % (Manual) Monocytes % (Manual) Nucleated RBC % Seg Neutrophils # Seg Neutrophils # Man Monocytes # (Manual) PT INR Activated Clotting Time POC ABG pH POC ABG pCO2 POC ABG pO2 Sodium Potassium Chloride Carbon Dioxide BUN Creatinine Glucose POC Glucose 124 H 122 H 120 H Calcium Magnesium Direct Bilirubin AST ALT Alkaline Phosphatase Total Creatine Kinase CK-MB (CK-2) CK-MB (CK-2) Rel Index Troponin T C-Reactive Protein Total Protein Albumin Triglycerides Ur Specific [place] Urine WBC (Auto) Miscellaneous Test 05/06/17 05/06/17 05/06/17 00:16 05:47 11:42 WBC RBC Hgb Hct MCV MCH RDW Plt Count Lymph % (Auto) Martin % (Auto) Eos % (Auto) Baso % (Auto) Lymph # Baso # Seg Neutrophils % Lymphocytes % (Manual) Monocytes % (Manual) Nucleated RBC % Seg Neutrophils # Seg Neutrophils # Man Monocytes # (Manual) PT INR Activated Clotting Time POC ABG pH POC ABG pCO2 POC ABG pO2 Sodium Potassium Chloride Carbon Dioxide BUN Creatinine Glucose POC Glucose 110 H 142 H 120 H Calcium Magnesium Direct Bilirubin AST ALT Alkaline Phosphatase Total Creatine Kinase CK-MB (CK-2) CK-MB (CK-2) Rel Index Troponin T C-Reactive Protein Total Protein Albumin Triglycerides Ur Specific [place] Urine WBC (Auto) Miscellaneous Test 05/06/17 05/07/17 05/07/17 17:46 00:07 05:28 WBC RBC Hgb Hct MCV MCH RDW Plt Count Lymph % (Auto) [place] % (Auto) Eos % (Auto) Baso % (Auto) Lymph # Baso # Seg Neutrophils % Lymphocytes % (Manual) Monocytes % (Manual) Nucleated RBC % Seg Neutrophils # Seg Neutrophils # Man Monocytes # (Manual) PT INR Activated Clotting Time POC ABG pH POC ABG pCO2 POC ABG pO2 Sodium Potassium Chloride Carbon Dioxide BUN Creatinine Glucose POC Glucose 127 H 145 H 124 H Calcium Magnesium Direct Bilirubin AST ALT Alkaline Phosphatase Total Creatine Kinase CK-MB (CK-2) CK-MB (CK-2) Rel Index Troponin T C-Reactive Protein Total Protein Albumin Triglycerides Ur Specific [place] Urine WBC (Auto) Miscellaneous Test 05/07/17 05/07/17 05/08/17 11:17 17:14 00:03 WBC RBC Hgb Hct MCV MCH RDW Plt Count Lymph % (Auto) [place] % (Auto) Eos % (Auto) Baso % (Auto) Lymph # Baso # Seg Neutrophils % Lymphocytes % (Manual) Monocytes % (Manual) Nucleated RBC % Seg Neutrophils # Seg Neutrophils # Man Monocytes # (Manual) PT INR Activated Clotting Time POC ABG pH POC ABG pCO2 POC ABG pO2 Sodium Potassium Chloride Carbon Dioxide BUN Creatinine Glucose POC Glucose 144 H 125 H 122 H Calcium Magnesium Direct Bilirubin AST ALT Alkaline Phosphatase Total Creatine Kinase CK-MB (CK-2) CK-MB (CK-2) Rel Index Troponin T C-Reactive Protein Total Protein Albumin Triglycerides Ur Specific [place] Urine WBC (Auto) Miscellaneous Test 05/08/17 05/08/17 05/08/17 05:43 12:07 18:02 WBC RBC Hgb Hct MCV MCH RDW Plt Count Lymph % (Auto) [place] % (Auto) Eos % (Auto) Baso % (Auto) Lymph # Baso # Seg Neutrophils % Lymphocytes % (Manual) Monocytes % (Manual) Nucleated RBC % Seg Neutrophils # Seg Neutrophils # Man Monocytes # (Manual) PT INR Activated Clotting Time POC ABG pH POC ABG pCO2 POC ABG pO2 Sodium Potassium Chloride Carbon Dioxide BUN Creatinine Glucose POC Glucose 117 H 114 H 129 H Calcium Magnesium Direct Bilirubin AST ALT Alkaline Phosphatase Total Creatine Kinase CK-MB (CK-2) CK-MB (CK-2) Rel Index Troponin T C-Reactive Protein Total Protein Albumin Triglycerides Ur Specific [place] Urine WBC (Auto) Miscellaneous Test 05/08/17 05/09/17 05/09/17 23:53 04:19 05:14 WBC RBC Hgb Hct MCV MCH RDW Plt Count Lymph % (Auto) [place] % (Auto) Eos % (Auto) Baso % (Auto) Lymph # Baso # Seg Neutrophils % Lymphocytes % (Manual) Monocytes % (Manual) Nucleated RBC % Seg Neutrophils # Seg Neutrophils # Man Monocytes # (Manual) PT INR Activated Clotting Time POC ABG pH 7.524 H POC ABG pCO2 34.7 L POC ABG pO2 107 H Sodium Potassium Chloride Carbon Dioxide BUN Creatinine Glucose POC Glucose 125 H 118 H Calcium Magnesium Direct Bilirubin AST ALT Alkaline Phosphatase Total Creatine Kinase CK-MB (CK-2) CK-MB (CK-2) Rel Index Troponin T C-Reactive Protein Total Protein Albumin Triglycerides Ur Specific [place] Urine WBC (Auto) Miscellaneous Test 05/10/17 05/11/17 05/11/17 23:54 05:48 23:50 WBC RBC Hgb Hct MCV MCH RDW Plt Count Lymph % (Auto) [place] % (Auto) Eos % (Auto) Baso % (Auto) Lymph # Baso # Seg Neutrophils % Lymphocytes % (Manual) Monocytes % (Manual) Nucleated RBC % Seg Neutrophils # Seg Neutrophils # Man Monocytes # (Manual) PT INR Activated Clotting Time POC ABG pH POC ABG pCO2 POC ABG pO2 Sodium Potassium Chloride Carbon Dioxide BUN Creatinine Glucose POC Glucose 126 H 137 H 130 H Calcium Magnesium Direct Bilirubin AST ALT Alkaline Phosphatase Total Creatine Kinase CK-MB (CK-2) CK-MB (CK-2) Rel Index Troponin T C-Reactive Protein Total Protein Albumin Triglycerides Ur Specific [place] Urine WBC (Auto) Miscellaneous Test 05/12/17 05/12/17 05/12/17 05:48 11:33 18:00 WBC RBC Hgb Hct MCV MCH RDW Plt Count Lymph % (Auto) [place] % (Auto) Eos % (Auto) Baso % (Auto) Lymph # Baso # Seg Neutrophils % Lymphocytes % (Manual) Monocytes % (Manual) Nucleated RBC % Seg Neutrophils # Seg Neutrophils # Man Monocytes # (Manual) PT INR Activated Clotting Time POC ABG pH POC ABG pCO2 POC ABG pO2 Sodium Potassium Chloride Carbon Dioxide BUN Creatinine Glucose POC Glucose 126 H 116 H 131 H Calcium Magnesium Direct Bilirubin AST ALT Alkaline Phosphatase Total Creatine Kinase CK-MB (CK-2) CK-MB (CK-2) Rel Index Troponin T C-Reactive Protein Total Protein Albumin Triglycerides Ur Specific [place] Urine WBC (Auto) Miscellaneous Test 05/14/17 05/15/17 05/15/17 11:45 11:27 17:42 WBC RBC Hgb Hct MCV MCH RDW Plt Count Lymph % (Auto) [place] % (Auto) Eos % (Auto) Baso % (Auto) Lymph # Baso # Seg Neutrophils % Lymphocytes % (Manual) Monocytes % (Manual) Nucleated RBC % Seg Neutrophils # Seg Neutrophils # Man Monocytes # (Manual) PT INR Activated Clotting Time POC ABG pH POC ABG pCO2 POC ABG pO2 Sodium Potassium Chloride Carbon Dioxide BUN Creatinine Glucose POC Glucose 123 H 129 H 125 H Calcium Magnesium Direct Bilirubin AST ALT Alkaline Phosphatase Total Creatine Kinase CK-MB (CK-2) CK-MB (CK-2) Rel Index Troponin T C-Reactive Protein Total Protein Albumin Triglycerides Ur Specific [place] Urine WBC (Auto) Miscellaneous Test 05/16/17 05/16/17 05/17/17 00:29 06:50 03:45 WBC RBC Hgb 11.7 L Hct 34.8 L MCV MCH RDW 15.5 H Plt Count Lymph % (Auto) [place] % (Auto) 7.7 H Eos % (Auto) Baso % (Auto) Lymph # Baso # Seg Neutrophils % 73.7 H Lymphocytes % (Manual) Monocytes % (Manual) Nucleated RBC % Seg Neutrophils # Seg Neutrophils # Man Monocytes # (Manual) PT INR Activated Clotting Time POC ABG pH POC ABG pCO2 POC ABG pO2 Sodium Potassium Chloride Carbon Dioxide BUN Creatinine Glucose POC Glucose 141 H 138 H Calcium Magnesium Direct Bilirubin AST ALT Alkaline Phosphatase Total Creatine Kinase CK-MB (CK-2) CK-MB (CK-2) Rel Index Troponin T C-Reactive Protein Total Protein Albumin Triglycerides Ur Specific [place] Urine WBC (Auto) Miscellaneous Test 05/17/17 03:45 WBC RBC Hgb Hct MCV MCH RDW Plt Count Lymph % (Auto) [place] % (Auto) Eos % (Auto) Baso % (Auto) Lymph # Baso # Seg Neutrophils % Lymphocytes % (Manual) Monocytes % (Manual) Nucleated RBC % Seg Neutrophils # Seg Neutrophils # Man Monocytes # (Manual) PT INR Activated Clotting Time POC ABG pH POC ABG pCO2 POC ABG pO2 Sodium Potassium Chloride Carbon Dioxide BUN Creatinine 0.2 L Glucose 131 H POC Glucose Calcium Magnesium Direct Bilirubin AST ALT Alkaline Phosphatase Total Creatine Kinase CK-MB (CK-2) CK-MB (CK-2) Rel Index Troponin T C-Reactive Protein Total Protein Albumin Triglycerides Ur Specific [place] Urine WBC (Auto) Miscellaneous Test Chest x-ray: report reviewed, image reviewed
--- NOTE | 2017-05-21 09:27 | Progress Note ---
Assessment and Plan Assessment and plan: V. fib arrest status post CPR anoxic encephalopathy respiratory failure vent dependent tracheostomy and PEG placement MRSA pneumonia with status. Sepsis poor prognosis, full CODE STATUS -- acute hypoxic hypercapnic respiratory failure; status post trach, vent dependent, --Hematuria; unknown etiology, resolved --Acute Cystitis --s/p cardiac arrest /anoxic encephalopathy/vegetative state --Acute anterior STEMI; status post PCI, --s/p MRSA pneumonia/aspiration pneumonia, s/p full treatment, contact isolation --Hypertension; monitor blood pressures and adjust medications as needed -- Aspiration pneumonia; sepsis; received full course of antibiotics --Cardiogenic shock; off pressors, --s/p trach and PEG, continue PEG feeds --Severe Protein calorie malnutrition: Peg feeds and nutrition supplements --DVT prophylaxis; Lovenox Continue current management --Full CODE STATUS Poor prognosis family aware, Multiple family meetings in the past. Still awaiting family decision Family has unrealistic expectations, requests to continue full CODE STATUS Dismal prognosis and bad outcome is expected as explained by neurology and Dr. Ham (see previous notes); they have unrealistic expectations and thus he remains full support/full code The high probability of a clinically significant, sudden or life threatening deterioration of the [NEUROLOGY] system(s) required my full and direct attention , intervention and personal management. The aggregate critical care time was [45 ] minutes. This time is in addition to time spent performing reported procedures but includes the following: [X] Data Review and interpretation [X] Patient assessment and monitoring of vital signs [X] Documentation [X] Medication orders and management History Interval history: Patient seen and examined, remains on full ventilatory support and unresponsive Hospitalist Physical - Physical exam Narrative exam: General appearance: Present: no acute distress, well-nourished, other ( tracheostomy on vent) - EENT Eyes: Present: PERRL (spontaneous opening of eyes) - Neck Neck: Present: supple, other (tracheostomy) - Respiratory Respiratory effort: normal Respiratory: bilateral: diminished, rhonchi - Cardiovascular Rhythm: regular Heart Sounds: Present: S1 & S2 - Extremities Extremities: no ischemia Extremity abnormal: edema (trace edema) - Abdominal General gastrointestinal: soft, non-tender, non-distended, normal bowel sounds, other (PEG in place and functional) - Integumentary Integumentary: Present: clear, warm - Psychiatric Psychiatric: other (noncommunicative) - Neurologic Neurologic: other (unresponsive) - Constitutional Vitals: Temp Pulse Resp BP Pulse Ox 98.6 F 69 16 110/71 96 05/21/17 08:00 05/21/17 07:29 05/21/17 04:00 05/21/17 07:29 05/21/17 07:31 General appearance: Present: no acute distress, well-nourished, other ( tracheostomy on vent) Results - Labs CBC & Chem 7: 05/17/17 03:45 05/17/17 03:45 Labs: Laboratory Last Values WBC 9.4 K/mm3 (4.5-11.0) 05/17/17 03:45 RBC 3.85 M/mm3 (3.65-5.03) 05/17/17 03:45 Hgb 11.7 gm/dl (11.8-15.2) L 05/17/17 03:45 Hct 34.8 % (35.5-45.6) L 05/17/17 03:45 MCV 90 fl (84-94) 05/17/17 03:45 MCH 31 pg (28-32) 05/17/17 03:45 MCHC 34 % (32-34) 05/17/17 03:45 RDW 15.5 % (13.2-15.2) H 05/17/17 03:45 Plt Count 289 K/mm3 (140-440) 05/17/17 03:45 Lymph % (Auto) 15.6 % (13.4-35.0) 05/17/17 03:45 [place] % (Auto) 7.7 % (0.0-7.3) H 05/17/17 03:45 Eos % (Auto) 2.7 % (0.0-4.3) 05/17/17 03:45 Baso % (Auto) 0.3 % (0.0-1.8) 05/17/17 03:45 Lymph # 1.5 K/mm3 (1.2-5.4) 05/17/17 03:45 Cass # 0.7 K/mm3 (0.0-0.8) 05/17/17 03:45 Eos # 0.3 K/mm3 (0.0-0.4) 05/17/17 03:45 Baso # 0.0 K/mm3 (0.0-0.1) 05/17/17 03:45 Add Manual Diff Complete 03/30/17 03:50 Total Counted 100 03/30/17 03:50 Seg Neutrophils % 73.7 % (40.0-70.0) H 05/17/17 03:45 Seg Neuts % (Manual) 65.0 % (40.0-70.0) 03/30/17 03:50 Band Neutrophils % 17.0 % 03/30/17 03:50 Lymphocytes % (Manual) 7.0 % (13.4-35.0) L 03/30/17 03:50 Reactive Lymphs % (Man) 0 % 03/30/17 03:50 Monocytes % (Manual) 7.0 % (0.0-7.3) 03/30/17 03:50 Eosinophils % (Manual) 0 % (0.0-4.3) 03/30/17 03:50 Basophils % (Manual) 0 % (0.0-1.8) 03/30/17 03:50 Metamyelocytes % 4.0 % 03/30/17 03:50 Myelocytes % 0 % 03/30/17 03:50 Promyelocytes % 0 % 03/30/17 03:50 Blast Cells % 0 % 03/30/17 03:50 Nucleated RBC % Not Reportable 03/30/17 03:50 Seg Neutrophils # 6.9 K/mm3 (1.8-7.7) 05/17/17 03:45 Seg Neutrophils # Man 12.7 K/mm3 (1.8-7.7) H 03/30/17 03:50 Band Neutrophils # 3.3 K/mm3 03/30/17 03:50 Lymphocytes # (Manual) 1.4 K/mm3 (1.2-5.4) 03/30/17 03:50 Abs React Lymphs (Man) 0.0 K/mm3 03/30/17 03:50 Monocytes # (Manual) 1.4 K/mm3 (0.0-0.8) H 03/30/17 03:50 Eosinophils # (Manual) 0.0 K/mm3 (0.0-0.4) 03/30/17 03:50 Basophils # (Manual) 0.0 K/mm3 (0.0-0.1) 03/30/17 03:50 Metamyelocytes # 0.8 K/mm3 03/30/17 03:50 Myelocytes # 0.0 K/mm3 03/30/17 03:50 Promyelocytes # 0.0 K/mm3 03/30/17 03:50 Blast Cells # 0.0 K/mm3 03/30/17 03:50 WBC Morphology Not Reportable 03/30/17 03:50 Hypersegmented Neuts Not Reportable 03/30/17 03:50 Hyposegmented Neuts Not Reportable 03/30/17 03:50 Hypogranular Neuts Not Reportable 03/30/17 03:50 Smudge Cells Not Reportable 03/30/17 03:50 Toxic Granulation Not Reportable 03/30/17 03:50 Toxic Vacuolation Not Reportable 03/30/17 03:50 Dohle Bodies Not Reportable 03/30/17 03:50 Pelger-Huet Anomaly Not Reportable 03/30/17 03:50 Sherry Rods Not Reportable 03/30/17 03:50 Platelet Estimate Appears normal 03/30/17 03:50 Clumped Platelets Not Reportable 03/30/17 03:50 Plt Clumps, EDTA Not Reportable 03/30/17 03:50 Large Platelets Not Reportable 03/30/17 03:50 Giant Platelets Not Reportable 03/30/17 03:50 Platelet Satelliting Not Reportable 03/30/17 03:50 Plt Morphology Comment Not Reportable 03/30/17 03:50 RBC Morphology Not Reportable 03/30/17 03:50 Dimorphic RBCs Not Reportable 03/30/17 03:50 Polychromasia Not Reportable 03/30/17 03:50 Hypochromasia Not Reportable 03/30/17 03:50 Poikilocytosis Not Reportable 03/30/17 03:50 Anisocytosis Few 03/30/17 03:50 Microcytosis Not Reportable 03/30/17 03:50 Macrocytosis Not Reportable 03/30/17 03:50 Spherocytes Not Reportable 03/30/17 03:50 Pappenheimer Bodies Not Reportable 03/30/17 03:50 Sickle Cells Not Reportable 03/30/17 03:50 Target Cells Not Reportable 03/30/17 03:50 Tear Drop Cells Not Reportable 03/30/17 03:50 Ovalocytes Not Reportable 03/30/17 03:50 Helmet Cells Not Reportable 03/30/17 03:50 [place] Bodies Not Reportable 03/30/17 03:50 [place] Rings Not Reportable 03/30/17 03:50 Nusrat Cells Not Reportable 03/30/17 03:50 Bite Cells Not Reportable 03/30/17 03:50 Crenated Cell Not Reportable 03/30/17 03:50 Elliptocytes Not Reportable 03/30/17 03:50 Acanthocytes (Spur) Not Reportable 03/30/17 03:50 Rouleaux Not Reportable 03/30/17 03:50 Hemoglobin C Crystals Not Reportable 03/30/17 03:50 Schistocytes Not Reportable 03/30/17 03:50 Malaria parasites Not Reportable 03/30/17 03:50 Jermaine Bodies Not Reportable 03/30/17 03:50 Hem Pathologist Commnt No 03/30/17 03:50 PT 14.9 Sec. (12.2-14.9) 04/10/17 04:16 INR 1.11 (0.87-1.13) 04/10/17 04:16 APTT 27.8 Sec. (24.2-36.6) 04/10/17 04:16 Activated Clotting Time 92 (74-137) 03/29/17 17:47 POC ABG pH 7.524 (7.35-7.45) H 05/09/17 04:19 POC ABG pCO2 34.7 (35-45) L 05/09/17 04:19 POC ABG pO2 107 (80-105) H 05/09/17 04:19 POC ABG HCO3 28.6 05/09/17 04:19 POC ABG Total CO2 30 05/09/17 04:19 POC ABG O2 Sat 99 05/09/17 04:19 POC ABG Base Excess 6 05/09/17 04:19 FiO2 25 % 05/09/17 04:19 Sodium 140 mmol/L (137-145) 05/17/17 03:45 Potassium 3.8 mmol/L (3.6-5.0) 05/17/17 03:45 Chloride 100.5 mmol/L (98-107) 05/17/17 03:45 Carbon Dioxide 25 mmol/L (22-30) 05/17/17 03:45 Anion Gap 18 mmol/L 05/17/17 03:45 BUN 17 mg/dL (9-20) 05/17/17 03:45 Creatinine 0.2 mg/dL (0.8-1.5) L 05/17/17 03:45 Estimated GFR > 60 ml/min 05/17/17 03:45 BUN/Creatinine Ratio 85 % 05/17/17 03:45 Glucose 131 mg/dL (75-100) H 05/17/17 03:45 POC Glucose 116 (70-105) H 05/20/17 17:31 Calcium 9.1 mg/dL (8.4-10.2) 05/17/17 03:45 Phosphorus 3.50 mg/dL (2.5-4.5) 04/13/17 04:45 Magnesium 1.80 mg/dL (1.7-2.3) 05/01/17 05:30 Total Bilirubin 0.60 mg/dL (0.1-1.2) 05/01/17 05:30 Direct Bilirubin < 0.2 mg/dL (0-0.2) 04/27/17 05:40 Indirect Bilirubin 0.3 mg/dL 04/25/17 04:51 AST 71 units/L (5-40) H 05/01/17 05:30 ALT 125 units/L (7-56) H 05/01/17 05:30 Alkaline Phosphatase 158 units/L (35-129) H 05/01/17 05:30 Total Creatine Kinase 1404 units/L (55-170) H 04/12/17 21:36 CK-MB (CK-2) 8.0 ng/mL (0.0-4.0) H 04/12/17 21:36 CK-MB (CK-2) Rel Index 0.5 (0-4) 04/12/17 21:36 Troponin T 0.767 ng/mL (0.00-0.029) H* 04/12/17 21:36 C-Reactive Protein 21.80 mg/dL (0.00-1.30) H 03/30/17 16:04 Total Protein 6.7 g/dL (6.3-8.2) 05/01/17 05:30 Albumin 2.6 g/dL (3.9-5) L 05/01/17 05:30 Albumin/Globulin Ratio 0.6 % 05/01/17 05:30 Triglycerides 151 mg/dL (2-149) H 04/01/17 04:29 Cholesterol 164 mg/dL (50-199) 03/29/17 19:52 LDL Cholesterol Direct 81 mg/dL (50-130) 03/29/17 19:52 HDL Cholesterol 44 mg/dL (40-59) 03/29/17 19:52 Cholesterol/HDL Ratio 3.72 % 03/29/17 19:52 Urine Color [place] (Yellow) 04/21/17 22:00 Urine Turbidity Clear (Clear) 04/21/17 22:00 Urine pH 5.0 (5.0-7.0) 04/21/17 22:00 Ur Specific [place] 1.029 (1.003-1.030) 04/21/17 22:00 Urine Protein 30 mg/dl mg/dL (Negative) 04/21/17 22:00 Urine Glucose (UA) Neg mg/dL (Negative) 04/21/17 22:00 Urine Ketones Neg mg/dL (Negative) 04/21/17 22:00 Urine Blood Mod (Negative) 04/21/17 22:00 Urine Nitrite Neg (Negative) 04/21/17 22:00 Urine Bilirubin Neg (Negative) 04/21/17 22:00 Urine Urobilinogen 4.0 mg/dL (<2.0) 04/21/17 22:00 Ur Leukocyte Esterase Neg (Negative) 04/21/17 22:00 Urine WBC (Auto) 10.0 /HPF (0.0-6.0) H 04/21/17 22:00 Urine RBC (Auto) 44.0 /HPF (0.0-6.0) 04/21/17 22:00 U Epithel Cells (Auto) < 1.0 /HPF (0-13.0) 04/21/17 22:00 Amorphous Crystals 1+ 03/30/17 09:45 Urine Mucus 3+ /HPF 04/21/17 22:00 Urine Opiates Screen Presumptive negative 03/30/17 09:45 Urine Methadone Screen Presumptive negative 03/30/17 09:45 Ur Barbiturates Screen Presumptive negative 03/30/17 09:45 Ur Phencyclidine Scrn Presumptive negative 03/30/17 09:45 Ur Amphetamines Screen Presumptive positive 03/30/17 09:45 U Benzodiazepines Scrn Presumptive positive 03/30/17 09:45 Urine Cocaine Screen Presumptive negative 03/30/17 09:45 U Marijuana (THC) Screen Presumptive negative 03/30/17 09:45 Drugs of Abuse Note Disclamer 03/30/17 09:45 Miscellaneous Test Flexitest 1 H 04/25/17 07:07 Blood Type O POSITIVE 03/29/17 11:35 Antibody Screen Negative 03/29/17 11:35
[2017-05-21] MEDS: ASPIRIN PO SCH (10:56)
[2017-05-21] MEDS: ELIQUIS PO SCH ×2 (10:56→21:34)
[2017-05-21] MEDS: PROTONIX FEEDTUBE SCH (10:56)
[2017-05-21] MEDS: PLAVIX PO SCH (10:57)
[2017-05-21] MEDS: ZESTRIL PO SCH (10:59)
[2017-05-21] MEDS: CORDARONE PO SCH ×2 (11:00→21:34)
[2017-05-21] MEDS: LOPRESSOR PO SCH ×2 (11:00→21:35)
--- NOTE | 2017-05-22 09:27 | Progress Note ---
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 No new recommendations for today. Patient remains full code and will continue PSV as tolerated with hopes of weaning to T-piece 1. PSV as tolerated with a goal to get to T-piece 2. Once tolerates T-piece for 24 hours, can consider transfer to floor, this is highly unlikely. 3. reviewed neurology note and agree with assessment 4. Continue all other cardiac meds 5. Overall prognosis still remains poor given amount of downtime during arrest. 6. Family meeting held, they feel the patient will overcome this current state as they have had other family members do the same. Very in depth conversation about the prognosis and current clinical state. I've made my best attempt to help them understand. Neuro agrees. Will continue supportive measures and attempt to wean. CCT 31 minutes. Subjective Date of service: 05/22/17 Principal diagnosis: coma,ARV,s/p arrest Interval history: Failed PSV yesterday as patient continues to have periods of apnea, as explained to the family several days ago. No change in mental state. Objective Vital Signs - 12hr 05/21/17 05/21/17 05/21/17 21:35 22:00 23:00 Temperature Pulse Rate 75 67 67 Pulse Rate [ From Monitor] Respiratory 18 12 Rate Blood Pressure 98/53 87/53 97/53 O2 Sat by Pulse 96 95 Oximetry O2 Sat by Pulse Oximetry [ Assessment] 05/22/17 05/22/17 05/22/17 00:00 00:46 01:00 Temperature 99.1 F Pulse Rate 73 68 71 Pulse Rate [ 74 From Monitor] Respiratory 14 18 Rate Blood Pressure 95/56 101/65 94/57 O2 Sat by Pulse 98 98 96 Oximetry O2 Sat by Pulse 100 Oximetry [ Assessment] 05/22/17 05/22/17 05/22/17 02:00 03:00 03:35 Temperature Pulse Rate 70 73 76 Pulse Rate [ From Monitor] Respiratory 14 16 Rate Blood Pressure 102/49 101/56 106/61 O2 Sat by Pulse 97 93 99 Oximetry O2 Sat by Pulse Oximetry [ Assessment] 05/22/17 05/22/17 05/22/17 04:00 05:00 06:00 Temperature 99.3 F Pulse Rate 65 74 76 Pulse Rate [ 72 From Monitor] Respiratory 18 20 17 Rate Blood Pressure 94/52 101/58 88/53 O2 Sat by Pulse 97 96 95 Oximetry O2 Sat by Pulse Oximetry [ Assessment] 05/22/17 05/22/17 05/22/17 07:00 08:00 08:29 Temperature 99.4 F Pulse Rate 74 71 77 Pulse Rate [ 80 From Monitor] Respiratory 21 24 Rate Blood Pressure 100/56 100/46 98/51 O2 Sat by Pulse 96 100 99 Oximetry O2 Sat by Pulse Oximetry [ Assessment] Constitutional: no acute distress, comatose Eyes: non-icteric ENT: oropharynx moist Neck: supple, other (tracheotomy ) Effort: normal Ascultation: Bilateral: clear, diminished breath sounds, other (coarse BS bilaterally) Percussion: Bilateral: not dull Cardiovascular: regular rate and rhythm Gastrointestinal: normoactive bowel sounds, soft, non-tender, non-distended Integumentary: normal Extremities: no cyanosis, no edema, pink and warm Neurologic: other (nonresponsive with flaccid extremities) Psychiatric: other (eyes open spontaneously but does not follow any voice commands, otherwise nonresponsive except for pain) CBC and BMP: 05/17/17 03:45 05/17/17 03:45 ABG, PT/INR, D-dimer: ABG POC ABG pH 7.524 (7.35-7.45) H 05/09/17 04:19 POC ABG pCO2 34.7 (35-45) L 05/09/17 04:19 POC ABG pO2 107 (80-105) H 05/09/17 04:19 POC ABG HCO3 28.6 05/09/17 04:19 POC ABG Total CO2 30 05/09/17 04:19 POC ABG O2 Sat 99 05/09/17 04:19 PT/INR, D-dimer PT 14.9 Sec. (12.2-14.9) 04/10/17 04:16 INR 1.11 (0.87-1.13) 04/10/17 04:16 Abnormal lab findings: Abnormal Labs 03/29/17 03/29/17 03/29/17 11:35 11:35 11:40 WBC RBC Hgb Hct MCV 98 H MCH 33 H RDW Plt Count Lymph % (Auto) [place] % (Auto) Eos % (Auto) Baso % (Auto) Lymph # Baso # Seg Neutrophils % Lymphocytes % (Manual) Monocytes % (Manual) 9.0 H Nucleated RBC % 1.0 H Seg Neutrophils # Seg Neutrophils # Man Monocytes # (Manual) 0.9 H PT 15.8 H INR 1.20 H Activated Clotting Time POC ABG pH POC ABG pCO2 POC ABG pO2 Sodium Potassium 2.7 L* Chloride 95.3 L Carbon Dioxide 17 L BUN Creatinine Glucose 435 H POC Glucose Calcium Magnesium Direct Bilirubin AST ALT Alkaline Phosphatase Total Creatine Kinase CK-MB (CK-2) CK-MB (CK-2) Rel Index Troponin T C-Reactive Protein Total Protein 6.1 L Albumin 3.5 L Triglycerides Ur Specific Ponderosa Urine WBC (Auto) Miscellaneous Test 03/29/17 03/29/17 03/29/17 12:34 13:10 13:25 WBC RBC Hgb Hct MCV MCH RDW Plt Count Lymph % (Auto) [place] % (Auto) Eos % (Auto) Baso % (Auto) Lymph # Baso # Seg Neutrophils % Lymphocytes % (Manual) Monocytes % (Manual) Nucleated RBC % Seg Neutrophils # Seg Neutrophils # Man Monocytes # (Manual) PT INR Activated Clotting Time 142 H 169 H 175 H POC ABG pH POC ABG pCO2 POC ABG pO2 Sodium Potassium Chloride Carbon Dioxide BUN Creatinine Glucose POC Glucose Calcium Magnesium Direct Bilirubin AST ALT Alkaline Phosphatase Total Creatine Kinase CK-MB (CK-2) CK-MB (CK-2) Rel Index Troponin T C-Reactive Protein Total Protein Albumin Triglycerides Ur Specific Ponder[place] Urine WBC (Auto) Miscellaneous Test 03/29/17 03/29/17 03/29/17 14:50 15:18 19:52 WBC RBC Hgb Hct MCV MCH RDW Plt Count Lymph % (Auto) [place] % (Auto) Eos % (Auto) Baso % (Auto) Lymph # Baso # Seg Neutrophils % Lymphocytes % (Manual) Monocytes % (Manual) Nucleated RBC % Seg Neutrophils # Seg Neutrophils # Man Monocytes # (Manual) PT INR Activated Clotting Time 175 H POC ABG pH 7.293 L POC ABG pCO2 POC ABG pO2 602 H Sodium Potassium Chloride Carbon Dioxide BUN Creatinine Glucose POC Glucose Calcium Magnesium Direct Bilirubin AST ALT Alkaline Phosphatase Total Creatine Kinase 7263 H CK-MB (CK-2) > 300.0 H CK-MB (CK-2) Rel Index 4.1 H Troponin T 8.080 H* D C-Reactive Protein Total Protein Albumin Triglycerides 195 H Ur Specific Ponderosa Urine WBC (Auto) Miscellaneous Test 03/30/17 03/30/17 03/30/17 03:50 03:50 06:19 WBC 19.5 H RBC Hgb Hct MCV MCH RDW Plt Count Lymph % (Auto) [place] % (Auto) Eos % (Auto) Baso % (Auto) Lymph # Baso # Seg Neutrophils % Lymphocytes % (Manual) 7.0 L Monocytes % (Manual) Nucleated RBC % Seg Neutrophils # Seg Neutrophils # Man 12.7 H Monocytes # (Manual) 1.4 H PT INR Activated Clotting Time POC ABG pH POC ABG pCO2 28.2 L POC ABG pO2 108 H Sodium Potassium Chloride 108.9 H Carbon Dioxide 15 L BUN 25 H Creatinine Glucose 158 H POC Glucose Calcium 8.1 L Magnesium Direct Bilirubin AST ALT Alkaline Phosphatase Total Creatine Kinase 7963 H CK-MB (CK-2) > 300.0 H CK-MB (CK-2) Rel Index Troponin T 6.850 H* C-Reactive Protein Total Protein Albumin Triglycerides Ur Specific Ponderosa Urine WBC (Auto) Miscellaneous Test 03/30/17 03/30/17 03/31/17 09:45 16:04 02:19 WBC RBC Hgb Hct MCV MCH RDW Plt Count Lymph % (Auto) [place] % (Auto) Eos % (Auto) Baso % (Auto) Lymph # Baso # Seg Neutrophils % Lymphocytes % (Manual) Monocytes % (Manual) Nucleated RBC % Seg Neutrophils # Seg Neutrophils # Man Monocytes # (Manual) PT INR Activated Clotting Time POC ABG pH POC ABG pCO2 POC ABG pO2 Sodium Potassium Chloride Carbon Dioxide BUN Creatinine Glucose POC Glucose 137 H Calcium Magnesium Direct Bilirubin AST ALT Alkaline Phosphatase Total Creatine Kinase CK-MB (CK-2) CK-MB (CK-2) Rel Index Troponin T C-Reactive Protein 21.80 H Total Protein Albumin Triglycerides Ur Specific Ponderosa 1.031 H Urine WBC (Auto) Miscellaneous Test 03/31/17 03/31/17 03/31/17 03:57 06:54 09:22 WBC RBC Hgb Hct MCV MCH RDW Plt Count Lymph % (Auto) [place] % (Auto) Eos % (Auto) Baso % (Auto) Lymph # Baso # Seg Neutrophils % Lymphocytes % (Manual) Monocytes % (Manual) Nucleated RBC % Seg Neutrophils # Seg Neutrophils # Man Monocytes # (Manual) PT INR Activated Clotting Time POC ABG pH 7.475 H POC ABG pCO2 25.4 L POC ABG pO2 62 L Sodium Potassium Chloride Carbon Dioxide 19 L BUN 22 H Creatinine 0.6 L Glucose 148 H POC Glucose 143 H Calcium 8.3 L Magnesium Direct Bilirubin AST ALT Alkaline Phosphatase Total Creatine Kinase CK-MB (CK-2) CK-MB (CK-2) Rel Index Troponin T C-Reactive Protein Total Protein Albumin Triglycerides Ur Specific Ponder[place] Urine WBC (Auto) Miscellaneous Test 03/31/17 03/31/17 03/31/17 11:40 17:47 23:38 WBC RBC Hgb Hct MCV MCH RDW Plt Count Lymph % (Auto) [place] % (Auto) Eos % (Auto) Baso % (Auto) Lymph # Baso # Seg Neutrophils % Lymphocytes % (Manual) Monocytes % (Manual) Nucleated RBC % Seg Neutrophils # Seg Neutrophils # Man Monocytes # (Manual) PT INR Activated Clotting Time POC ABG pH POC ABG pCO2 POC ABG pO2 Sodium Potassium Chloride Carbon Dioxide BUN Creatinine Glucose POC Glucose 127 H 137 H 148 H Calcium Magnesium Direct Bilirubin AST ALT Alkaline Phosphatase Total Creatine Kinase CK-MB (CK-2) CK-MB (CK-2) Rel Index Troponin T C-Reactive Protein Total Protein Albumin Triglycerides Ur Specific Ponder[place] Urine WBC (Auto) Miscellaneous Test 04/01/17 04/01/17 04/01/17 04:29 05:01 11:54 WBC RBC Hgb Hct MCV MCH RDW Plt Count Lymph % (Auto) [place] % (Auto) Eos % (Auto) Baso % (Auto) Lymph # Baso # Seg Neutrophils % Lymphocytes % (Manual) Monocytes % (Manual) Nucleated RBC % Seg Neutrophils # Seg Neutrophils # Man Monocytes # (Manual) PT INR Activated Clotting Time POC ABG pH 7.513 H POC ABG pCO2 22.1 L POC ABG pO2 64 L Sodium Potassium Chloride Carbon Dioxide BUN Creatinine Glucose POC Glucose 121 H Calcium Magnesium Direct Bilirubin AST ALT Alkaline Phosphatase Total Creatine Kinase CK-MB (CK-2) CK-MB (CK-2) Rel Index Troponin T C-Reactive Protein Total Protein Albumin Triglycerides 151 H Ur Specific Ponder[place] Urine WBC (Auto) Miscellaneous Test 04/01/17 04/02/17 04/02/17 18:17 00:11 04:52 WBC RBC Hgb Hct MCV MCH RDW Plt Count Lymph % (Auto) [place] % (Auto) Eos % (Auto) Baso % (Auto) Lymph # Baso # Seg Neutrophils % Lymphocytes % (Manual) Monocytes % (Manual) Nucleated RBC % Seg Neutrophils # Seg Neutrophils # Man Monocytes # (Manual) PT INR Activated Clotting Time POC ABG pH 7.524 H POC ABG pCO2 25.5 L POC ABG pO2 66 L Sodium Potassium Chloride Carbon Dioxide BUN Creatinine Glucose POC Glucose 117 H 122 H Calcium Magnesium Direct Bilirubin AST ALT Alkaline Phosphatase Total Creatine Kinase CK-MB (CK-2) CK-MB (CK-2) Rel Index Troponin T C-Reactive Protein Total Protein Albumin Triglycerides Ur Specific Ponder[place] Urine WBC (Auto) Miscellaneous Test 04/02/17 04/02/17 04/02/17 05:18 10:41 12:19 WBC RBC Hgb Hct MCV MCH RDW Plt Count Lymph % (Auto) [place] % (Auto) Eos % (Auto) Baso % (Auto) Lymph # Baso # Seg Neutrophils % Lymphocytes % (Manual) Monocytes % (Manual) Nucleated RBC % Seg Neutrophils # Seg Neutrophils # Man Monocytes # (Manual) PT INR Activated Clotting Time POC ABG pH 7.534 H POC ABG pCO2 27.4 L POC ABG pO2 Sodium Potassium Chloride Carbon Dioxide BUN Creatinine Glucose POC Glucose 132 H 129 H Calcium Magnesium Direct Bilirubin AST ALT Alkaline Phosphatase Total Creatine Kinase CK-MB (CK-2) CK-MB (CK-2) Rel Index Troponin T C-Reactive Protein Total Protein Albumin Triglycerides Ur Specific [place]onder[place] Urine WBC (Auto) Miscellaneous Test 04/02/17 04/03/17 04/03/17 18:05 00:08 05:09 WBC RBC Hgb Hct MCV MCH RDW Plt Count Lymph % (Auto) [place] % (Auto) Eos % (Auto) Baso % (Auto) Lymph # Baso # Seg Neutrophils % Lymphocytes % (Manual) Monocytes % (Manual) Nucleated RBC % Seg Neutrophils # Seg Neutrophils # Man Monocytes # (Manual) PT INR Activated Clotting Time POC ABG pH 7.455 H POC ABG pCO2 33.2 L POC ABG pO2 120 H Sodium Potassium Chloride Carbon Dioxide BUN Creatinine Glucose POC Glucose 136 H 128 H Calcium Magnesium Direct Bilirubin AST ALT Alkaline Phosphatase Total Creatine Kinase CK-MB (CK-2) CK-MB (CK-2) Rel Index Troponin T C-Reactive Protein Total Protein Albumin Triglycerides Ur Specific [place]onder[place] Urine WBC (Auto) Miscellaneous Test 04/03/17 04/03/17 04/03/17 06:32 11:54 12:16 WBC 11.9 H RBC Hgb Hct MCV MCH RDW Plt Count 125 L Lymph % (Auto) 4.8 L [place] % (Auto) Eos % (Auto) Baso % (Auto) Lymph # 0.6 L Baso # Seg Neutrophils % 86.7 H Lymphocytes % (Manual) Monocytes % (Manual) Nucleated RBC % Seg Neutrophils # 10.3 H Seg Neutrophils # Man Monocytes # (Manual) PT INR Activated Clotting Time POC ABG pH POC ABG pCO2 POC ABG pO2 Sodium Potassium Chloride Carbon Dioxide BUN Creatinine Glucose POC Glucose 138 H 143 H Calcium Magnesium Direct Bilirubin AST ALT Alkaline Phosphatase Total Creatine Kinase CK-MB (CK-2) CK-MB (CK-2) Rel Index Troponin T C-Reactive Protein Total Protein Albumin Triglycerides Ur Specific [place]onder[place] Urine WBC (Auto) Miscellaneous Test 04/03/17 04/03/17 04/04/17 17:33 23:59 04:34 WBC RBC Hgb Hct MCV MCH RDW Plt Count Lymph % (Auto) [place] % (Auto) Eos % (Auto) Baso % (Auto) Lymph # Baso # Seg Neutrophils % Lymphocytes % (Manual) Monocytes % (Manual) Nucleated RBC % Seg Neutrophils # Seg Neutrophils # Man Monocytes # (Manual) PT INR Activated Clotting Time POC ABG pH 7.457 H POC ABG pCO2 29.8 L POC ABG pO2 76 L Sodium Potassium Chloride Carbon Dioxide BUN Creatinine Glucose POC Glucose 130 H 155 H Calcium Magnesium Direct Bilirubin AST ALT Alkaline Phosphatase Total Creatine Kinase CK-MB (CK-2) CK-MB (CK-2) Rel Index Troponin T C-Reactive Protein Total Protein Albumin Triglycerides Ur Specific [place]onder[place] Urine WBC (Auto) Miscellaneous Test 04/04/17 04/04/17 04/04/17 05:27 12:22 18:18 WBC RBC Hgb Hct MCV MCH RDW Plt Count Lymph % (Auto) [place] % (Auto) Eos % (Auto) Baso % (Auto) Lymph # Baso # Seg Neutrophils % Lymphocytes % (Manual) Monocytes % (Manual) Nucleated RBC % Seg Neutrophils # Seg Neutrophils # Man Monocytes # (Manual) PT INR Activated Clotting Time POC ABG pH POC ABG pCO2 POC ABG pO2 Sodium Potassium Chloride Carbon Dioxide BUN Creatinine Glucose POC Glucose 164 H 146 H 130 H Calcium Magnesium Direct Bilirubin AST ALT Alkaline Phosphatase Total Creatine Kinase CK-MB (CK-2) CK-MB (CK-2) Rel Index Troponin T C-Reactive Protein Total Protein Albumin Triglycerides Ur Specific [place]onder[place] Urine WBC (Auto) Miscellaneous Test 04/05/17 04/05/17 04/05/17 04:43 05:28 11:36 WBC RBC Hgb Hct MCV MCH RDW Plt Count Lymph % (Auto) [place] % (Auto) Eos % (Auto) Baso % (Auto) Lymph # Baso # Seg Neutrophils % Lymphocytes % (Manual) Monocytes % (Manual) Nucleated RBC % Seg Neutrophils # Seg Neutrophils # Man Monocytes # (Manual) PT INR Activated Clotting Time POC ABG pH 7.479 H POC ABG pCO2 33.5 L POC ABG pO2 76 L Sodium Potassium Chloride Carbon Dioxide BUN Creatinine Glucose POC Glucose 145 H 136 H Calcium Magnesium Direct Bilirubin AST ALT Alkaline Phosphatase Total Creatine Kinase CK-MB (CK-2) CK-MB (CK-2) Rel Index Troponin T C-Reactive Protein Total Protein Albumin Triglycerides Ur Specific [place]onder[place] Urine WBC (Auto) Miscellaneous Test 04/05/17 04/06/17 04/06/17 17:58 00:16 05:26 WBC RBC Hgb Hct MCV MCH RDW Plt Count Lymph % (Auto) [place] % (Auto) Eos % (Auto) Baso % (Auto) Lymph # Baso # Seg Neutrophils % Lymphocytes % (Manual) Monocytes % (Manual) Nucleated RBC % Seg Neutrophils # Seg Neutrophils # Man Monocytes # (Manual) PT INR Activated Clotting Time POC ABG pH POC ABG pCO2 POC ABG pO2 Sodium Potassium Chloride Carbon Dioxide BUN Creatinine Glucose POC Glucose 130 H 159 H 146 H Calcium Magnesium Direct Bilirubin AST ALT Alkaline Phosphatase Total Creatine Kinase CK-MB (CK-2) CK-MB (CK-2) Rel Index Troponin T C-Reactive Protein Total Protein Albumin Triglycerides Ur Specific [place]onder[place] Urine WBC (Auto) Miscellaneous Test 04/06/17 04/06/17 04/07/17 13:11 16:54 11:45 WBC RBC Hgb Hct MCV MCH RDW Plt Count Lymph % (Auto) [place] % (Auto) Eos % (Auto) Baso % (Auto) Lymph # Baso # Seg Neutrophils % Lymphocytes % (Manual) Monocytes % (Manual) Nucleated RBC % Seg Neutrophils # Seg Neutrophils # Man Monocytes # (Manual) PT INR Activated Clotting Time POC ABG pH 7.517 H POC ABG pCO2 32.1 L POC ABG pO2 Sodium Potassium Chloride Carbon Dioxide BUN Creatinine Glucose POC Glucose 132 H 123 H Calcium Magnesium Direct Bilirubin AST ALT Alkaline Phosphatase Total Creatine Kinase CK-MB (CK-2) CK-MB (CK-2) Rel Index Troponin T C-Reactive Protein Total Protein Albumin Triglycerides Ur Specific [place]onder[place] Urine WBC (Auto) Miscellaneous Test 04/07/17 04/07/17 04/07/17 12:51 17:40 23:55 WBC RBC Hgb Hct MCV MCH RDW Plt Count Lymph % (Auto) [place] % (Auto) Eos % (Auto) Baso % (Auto) Lymph # Baso # Seg Neutrophils % Lymphocytes % (Manual) Monocytes % (Manual) Nucleated RBC % Seg Neutrophils # Seg Neutrophils # Man Monocytes # (Manual) PT INR Activated Clotting Time POC ABG pH POC ABG pCO2 POC ABG pO2 Sodium Potassium Chloride Carbon Dioxide BUN Creatinine Glucose POC Glucose 138 H 154 H 143 H Calcium Magnesium Direct Bilirubin AST ALT Alkaline Phosphatase Total Creatine Kinase CK-MB (CK-2) CK-MB (CK-2) Rel Index Troponin T C-Reactive Protein Total Protein Albumin Triglycerides Ur Specific [place]onder[place] Urine WBC (Auto) Miscellaneous Test 04/08/17 04/08/17 04/08/17 05:27 11:14 17:44 WBC RBC Hgb Hct MCV MCH RDW Plt Count Lymph % (Auto) [place] % (Auto) Eos % (Auto) Baso % (Auto) Lymph # Baso # Seg Neutrophils % Lymphocytes % (Manual) Monocytes % (Manual) Nucleated RBC % Seg Neutrophils # Seg Neutrophils # Man Monocytes # (Manual) PT INR Activated Clotting Time POC ABG pH POC ABG pCO2 POC ABG pO2 Sodium Potassium Chloride Carbon Dioxide BUN Creatinine Glucose POC Glucose 142 H 153 H 129 H Calcium Magnesium Direct Bilirubin AST ALT Alkaline Phosphatase Total Creatine Kinase CK-MB (CK-2) CK-MB (CK-2) Rel Index Troponin T C-Reactive Protein Total Protein Albumin Triglycerides Ur Specific [place]onder[place] Urine WBC (Auto) Miscellaneous Test 04/09/17 04/09/17 04/09/17 08:20 11:21 17:37 WBC RBC Hgb Hct MCV MCH RDW Plt Count Lymph % (Auto) [place] % (Auto) Eos % (Auto) Baso % (Auto) Lymph # Baso # Seg Neutrophils % Lymphocytes % (Manual) Monocytes % (Manual) Nucleated RBC % Seg Neutrophils # Seg Neutrophils # Man Monocytes # (Manual) PT INR Activated Clotting Time POC ABG pH POC ABG pCO2 POC ABG pO2 Sodium 147 H Potassium Chloride 108.8 H Carbon Dioxide BUN 39 H Creatinine 0.5 L Glucose 138 H POC Glucose 152 H 109 H Calcium Magnesium Direct Bilirubin AST ALT Alkaline Phosphatase Total Creatine Kinase CK-MB (CK-2) CK-MB (CK-2) Rel Index Troponin T C-Reactive Protein Total Protein Albumin Triglycerides Ur Specific [place]onder[place] Urine WBC (Auto) Miscellaneous Test 04/10/17 04/10/17 04/10/17 00:13 04:16 04:16 WBC RBC Hgb 11.5 L Hct MCV 96 H MCH RDW Plt Count 103 L Lymph % (Auto) 11.1 L [place] % (Auto) Eos % (Auto) Baso % (Auto) Lymph # Baso # Seg Neutrophils % 81.5 H Lymphocytes % (Manual) Monocytes % (Manual) Nucleated RBC % Seg Neutrophils # 8.8 H Seg Neutrophils # Man Monocytes # (Manual) PT INR Activated Clotting Time POC ABG pH POC ABG pCO2 POC ABG pO2 Sodium 148 H Potassium Chloride 109.0 H Carbon Dioxide BUN 36 H Creatinine 0.5 L Glucose 131 H POC Glucose 127 H Calcium 8.1 L Magnesium 2.40 H Direct Bilirubin AST 206 H ALT 228 H Alkaline Phosphatase 178 H Total Creatine Kinase CK-MB (CK-2) CK-MB (CK-2) Rel Index Troponin T C-Reactive Protein Total Protein Albumin 2.8 L Triglycerides Ur Specific Ponder[place] Urine WBC (Auto) Miscellaneous Test 04/10/17 04/10/17 04/10/17 06:01 11:57 18:27 WBC RBC Hgb Hct MCV MCH RDW Plt Count Lymph % (Auto) [place] % (Auto) Eos % (Auto) Baso % (Auto) Lymph # Baso # Seg Neutrophils % Lymphocytes % (Manual) Monocytes % (Manual) Nucleated RBC % Seg Neutrophils # Seg Neutrophils # Man Monocytes # (Manual) PT INR Activated Clotting Time POC ABG pH POC ABG pCO2 POC ABG pO2 Sodium Potassium Chloride Carbon Dioxide BUN Creatinine Glucose POC Glucose 108 H 154 H 130 H Calcium Magnesium Direct Bilirubin AST ALT Alkaline Phosphatase Total Creatine Kinase CK-MB (CK-2) CK-MB (CK-2) Rel Index Troponin T C-Reactive Protein Total Protein Albumin Triglycerides Ur Specific [place]onder[place] Urine WBC (Auto) Miscellaneous Test 04/11/17 04/11/17 04/12/17 12:25 17:10 00:22 WBC RBC Hgb Hct MCV MCH RDW Plt Count Lymph % (Auto) [place] % (Auto) Eos % (Auto) Baso % (Auto) Lymph # Baso # Seg Neutrophils % Lymphocytes % (Manual) Monocytes % (Manual) Nucleated RBC % Seg Neutrophils # Seg Neutrophils # Man Monocytes # (Manual) PT INR Activated Clotting Time POC ABG pH POC ABG pCO2 POC ABG pO2 Sodium Potassium Chloride Carbon Dioxide BUN Creatinine Glucose POC Glucose 107 H 129 H 128 H Calcium Magnesium Direct Bilirubin AST ALT Alkaline Phosphatase Total Creatine Kinase CK-MB (CK-2) CK-MB (CK-2) Rel Index Troponin T C-Reactive Protein Total Protein Albumin Triglycerides Ur Specific [place]onder[place] Urine WBC (Auto) Miscellaneous Test 04/12/17 04/12/17 04/12/17 05:00 11:57 17:47 WBC RBC Hgb Hct MCV MCH RDW Plt Count Lymph % (Auto) [place] % (Auto) Eos % (Auto) Baso % (Auto) Lymph # Baso # Seg Neutrophils % Lymphocytes % (Manual) Monocytes % (Manual) Nucleated RBC % Seg Neutrophils # Seg Neutrophils # Man Monocytes # (Manual) PT INR Activated Clotting Time POC ABG pH POC ABG pCO2 POC ABG pO2 Sodium Potassium Chloride Carbon Dioxide BUN Creatinine Glucose POC Glucose 140 H 142 H Calcium Magnesium Direct Bilirubin AST 158 H ALT 184 H Alkaline Phosphatase 170 H Total Creatine Kinase CK-MB (CK-2) CK-MB (CK-2) Rel Index Troponin T C-Reactive Protein Total Protein Albumin 2.8 L Triglycerides Ur Specific Ponder[place] Urine WBC (Auto) Miscellaneous Test 04/12/17 04/12/17 04/13/17 21:36 21:36 01:37 WBC RBC Hgb Hct MCV MCH RDW Plt Count Lymph % (Auto) [place] % (Auto) Eos % (Auto) Baso % (Auto) Lymph # Baso # Seg Neutrophils % Lymphocytes % (Manual) Monocytes % (Manual) Nucleated RBC % Seg Neutrophils # Seg Neutrophils # Man Monocytes # (Manual) PT INR Activated Clotting Time POC ABG pH POC ABG pCO2 POC ABG pO2 Sodium Potassium Chloride Carbon Dioxide BUN Creatinine Glucose POC Glucose 126 H Calcium Magnesium Direct Bilirubin AST ALT Alkaline Phosphatase Total Creatine Kinase 1404 H CK-MB (CK-2) 8.0 H CK-MB (CK-2) Rel Index Troponin T 0.767 H* C-Reactive Protein Total Protein Albumin Triglycerides Ur Specific [place]onder[place] Urine WBC (Auto) Miscellaneous Test 04/13/17 04/13/17 04/13/17 04:45 04:52 12:17 WBC RBC Hgb Hct MCV MCH RDW Plt Count Lymph % (Auto) [place] % (Auto) Eos % (Auto) Baso % (Auto) Lymph # Baso # Seg Neutrophils % Lymphocytes % (Manual) Monocytes % (Manual) Nucleated RBC % Seg Neutrophils # Seg Neutrophils # Man Monocytes # (Manual) PT INR Activated Clotting Time POC ABG pH POC ABG pCO2 POC ABG pO2 Sodium 148 H Potassium Chloride 112.8 H Carbon Dioxide BUN 33 H Creatinine 0.4 L Glucose 121 H POC Glucose 126 H 149 H Calcium Magnesium Direct Bilirubin AST 160 H ALT 189 H Alkaline Phosphatase 166 H Total Creatine Kinase CK-MB (CK-2) CK-MB (CK-2) Rel Index Troponin T C-Reactive Protein Total Protein Albumin 2.6 L Triglycerides Ur Specific [place]onder[place] Urine WBC (Auto) Miscellaneous Test 04/13/17 04/14/17 04/14/17 17:45 00:20 00:45 WBC RBC Hgb Hct MCV MCH RDW Plt Count Lymph % (Auto) [place] % (Auto) Eos % (Auto) Baso % (Auto) Lymph # Baso # Seg Neutrophils % Lymphocytes % (Manual) Monocytes % (Manual) Nucleated RBC % Seg Neutrophils # Seg Neutrophils # Man Monocytes # (Manual) PT INR Activated Clotting Time POC ABG pH POC ABG pCO2 POC ABG pO2 Sodium Potassium Chloride Carbon Dioxide BUN Creatinine Glucose POC Glucose 130 H 144 H 144 H Calcium Magnesium Direct Bilirubin AST ALT Alkaline Phosphatase Total Creatine Kinase CK-MB (CK-2) CK-MB (CK-2) Rel Index Troponin T C-Reactive Protein Total Protein Albumin Triglycerides Ur Specific [place]onder[place] Urine WBC (Auto) Miscellaneous Test 04/14/17 04/14/17 04/14/17 05:40 11:06 11:31 WBC RBC Hgb Hct MCV MCH RDW Plt Count Lymph % (Auto) [place] % (Auto) Eos % (Auto) Baso % (Auto) Lymph # Baso # Seg Neutrophils % Lymphocytes % (Manual) Monocytes % (Manual) Nucleated RBC % Seg Neutrophils # Seg Neutrophils # Man Monocytes # (Manual) PT INR Activated Clotting Time POC ABG pH POC ABG pCO2 POC ABG pO2 Sodium Potassium Chloride Carbon Dioxide BUN Creatinine Glucose POC Glucose 139 H 123 H Calcium Magnesium Direct Bilirubin AST ALT Alkaline Phosphatase Total Creatine Kinase CK-MB (CK-2) CK-MB (CK-2) Rel Index Troponin T C-Reactive Protein Total Protein Albumin Triglycerides Ur Specific Ponderosa 1.033 H Urine WBC (Auto) > 182.0 H Miscellaneous Test 04/14/17 04/14/17 04/15/17 18:00 23:52 05:15 WBC 12.5 H RBC 3.38 L Hgb 10.6 L Hct 32.7 L MCV 97 H MCH RDW Plt Count 107 L Lymph % (Auto) 8.7 L [place] % (Auto) Eos % (Auto) Baso % (Auto) Lymph # 1.1 L Baso # Seg Neutrophils % 86.1 H Lymphocytes % (Manual) Monocytes % (Manual) Nucleated RBC % Seg Neutrophils # 10.7 H Seg Neutrophils # Man Monocytes # (Manual) PT INR Activated Clotting Time POC ABG pH POC ABG pCO2 POC ABG pO2 Sodium Potassium Chloride Carbon Dioxide BUN Creatinine Glucose POC Glucose 133 H 133 H Calcium Magnesium Direct Bilirubin AST ALT Alkaline Phosphatase Total Creatine Kinase CK-MB (CK-2) CK-MB (CK-2) Rel Index Troponin T C-Reactive Protein Total Protein Albumin Triglycerides Ur Specific [place]onder[place] Urine WBC (Auto) Miscellaneous Test 04/15/17 04/15/17 04/15/17 05:15 05:25 11:50 WBC RBC Hgb Hct MCV MCH RDW Plt Count Lymph % (Auto) [place] % (Auto) Eos % (Auto) Baso % (Auto) Lymph # Baso # Seg Neutrophils % Lymphocytes % (Manual) Monocytes % (Manual) Nucleated RBC % Seg Neutrophils # Seg Neutrophils # Man Monocytes # (Manual) PT INR Activated Clotting Time POC ABG pH POC ABG pCO2 POC ABG pO2 Sodium 149 H Potassium 3.5 L Chloride 114.1 H Carbon Dioxide 21 L BUN 29 H Creatinine 0.4 L Glucose 128 H POC Glucose 133 H 107 H Calcium 8.3 L Magnesium Direct Bilirubin 0.4 H AST 149 H ALT 182 H Alkaline Phosphatase 143 H Total Creatine Kinase CK-MB (CK-2) CK-MB (CK-2) Rel Index Troponin T C-Reactive Protein Total Protein Albumin 2.5 L Triglycerides Ur Specific [place]onder[place] Urine WBC (Auto) Miscellaneous Test 04/15/17 04/16/17 04/16/17 16:55 00:02 03:17 WBC RBC 3.39 L Hgb 10.5 L Hct 32.4 L MCV 96 H MCH RDW Plt Count 106 L Lymph % (Auto) 6.7 L [place] % (Auto) Eos % (Auto) Baso % (Auto) Lymph # 0.6 L Baso # Seg Neutrophils % 86.8 H Lymphocytes % (Manual) Monocytes % (Manual) Nucleated RBC % Seg Neutrophils # 8.2 H Seg Neutrophils # Man Monocytes # (Manual) PT INR Activated Clotting Time POC ABG pH POC ABG pCO2 POC ABG pO2 Sodium Potassium Chloride Carbon Dioxide BUN Creatinine Glucose POC Glucose 146 H 148 H Calcium Magnesium Direct Bilirubin AST ALT Alkaline Phosphatase Total Creatine Kinase CK-MB (CK-2) CK-MB (CK-2) Rel Index Troponin T C-Reactive Protein Total Protein Albumin Triglycerides Ur Specific [place] Urine WBC (Auto) Miscellaneous Test 04/16/17 04/16/17 04/16/17 03:17 05:19 11:13 WBC RBC Hgb Hct MCV MCH RDW Plt Count Lymph % (Auto) [place] % (Auto) Eos % (Auto) Baso % (Auto) Lymph # Baso # Seg Neutrophils % Lymphocytes % (Manual) Monocytes % (Manual) Nucleated RBC % Seg Neutrophils # Seg Neutrophils # Man Monocytes # (Manual) PT INR Activated Clotting Time POC ABG pH POC ABG pCO2 POC ABG pO2 Sodium 149 H Potassium Chloride 111.1 H Carbon Dioxide 20 L BUN 27 H Creatinine 0.3 L Glucose 156 H POC Glucose 171 H 169 H Calcium 8.3 L Magnesium Direct Bilirubin AST ALT Alkaline Phosphatase Total Creatine Kinase CK-MB (CK-2) CK-MB (CK-2) Rel Index Troponin T C-Reactive Protein Total Protein Albumin Triglycerides Ur Specific [place] Urine WBC (Auto) Miscellaneous Test 04/16/17 04/17/17 04/17/17 17:03 00:00 05:09 WBC RBC Hgb Hct MCV MCH RDW Plt Count Lymph % (Auto) [place] % (Auto) Eos % (Auto) Baso % (Auto) Lymph # Baso # Seg Neutrophils % Lymphocytes % (Manual) Monocytes % (Manual) Nucleated RBC % Seg Neutrophils # Seg Neutrophils # Man Monocytes # (Manual) PT INR Activated Clotting Time POC ABG pH POC ABG pCO2 POC ABG pO2 Sodium Potassium Chloride Carbon Dioxide BUN Creatinine Glucose POC Glucose 151 H 165 H 145 H Calcium Magnesium Direct Bilirubin AST ALT Alkaline Phosphatase Total Creatine Kinase CK-MB (CK-2) CK-MB (CK-2) Rel Index Troponin T C-Reactive Protein Total Protein Albumin Triglycerides Ur Specific [place] Urine WBC (Auto) Miscellaneous Test 04/17/17 04/17/17 04/18/17 11:38 17:47 00:01 WBC RBC Hgb Hct MCV MCH RDW Plt Count Lymph % (Auto) [place] % (Auto) Eos % (Auto) Baso % (Auto) Lymph # Baso # Seg Neutrophils % Lymphocytes % (Manual) Monocytes % (Manual) Nucleated RBC % Seg Neutrophils # Seg Neutrophils # Man Monocytes # (Manual) PT INR Activated Clotting Time POC ABG pH POC ABG pCO2 POC ABG pO2 Sodium Potassium Chloride Carbon Dioxide BUN Creatinine Glucose POC Glucose 170 H 161 H 131 H Calcium Magnesium Direct Bilirubin AST ALT Alkaline Phosphatase Total Creatine Kinase CK-MB (CK-2) CK-MB (CK-2) Rel Index Troponin T C-Reactive Protein Total Protein Albumin Triglycerides Ur Specific [place] Urine WBC (Auto) Miscellaneous Test 04/18/17 04/18/17 04/18/17 03:55 03:55 05:30 WBC RBC 3.05 L Hgb 9.8 L Hct 29.0 L MCV 95 H MCH RDW Plt Count 113 L Lymph % (Auto) [place] % (Auto) Eos % (Auto) 5.3 H Baso % (Auto) Lymph # Baso # Seg Neutrophils % 71.5 H Lymphocytes % (Manual) Monocytes % (Manual) Nucleated RBC % Seg Neutrophils # Seg Neutrophils # Man Monocytes # (Manual) PT INR Activated Clotting Time POC ABG pH 7.460 H POC ABG pCO2 30.8 L POC ABG pO2 129 H Sodium Potassium Chloride Carbon Dioxide 21 L BUN 25 H Creatinine 0.4 L Glucose 123 H POC Glucose Calcium 8.3 L Magnesium Direct Bilirubin AST ALT Alkaline Phosphatase Total Creatine Kinase CK-MB (CK-2) CK-MB (CK-2) Rel Index Troponin T C-Reactive Protein Total Protein Albumin Triglycerides Ur Specific [place] Urine WBC (Auto) Miscellaneous Test 04/18/17 04/18/17 04/19/17 17:10 23:40 04:36 WBC RBC 3.21 L Hgb 10.2 L Hct 30.4 L MCV 95 H MCH RDW Plt Count 131 L Lymph % (Auto) 12.1 L [place] % (Auto) Eos % (Auto) 4.7 H Baso % (Auto) 2.4 H Lymph # 0.9 L Baso # 0.2 H Seg Neutrophils % 75.0 H Lymphocytes % (Manual) Monocytes % (Manual) Nucleated RBC % Seg Neutrophils # Seg Neutrophils # Man Monocytes # (Manual) PT INR Activated Clotting Time POC ABG pH POC ABG pCO2 POC ABG pO2 Sodium Potassium Chloride Carbon Dioxide BUN Creatinine Glucose POC Glucose 135 H 157 H Calcium Magnesium Direct Bilirubin AST ALT Alkaline Phosphatase Total Creatine Kinase CK-MB (CK-2) CK-MB (CK-2) Rel Index Troponin T C-Reactive Protein Total Protein Albumin Triglycerides Ur Specific [place] Urine WBC (Auto) Miscellaneous Test 04/19/17 04/19/17 04/19/17 04:36 05:12 06:50 WBC RBC Hgb Hct MCV MCH RDW Plt Count Lymph % (Auto) [place] % (Auto) Eos % (Auto) Baso % (Auto) Lymph # Baso # Seg Neutrophils % Lymphocytes % (Manual) Monocytes % (Manual) Nucleated RBC % Seg Neutrophils # Seg Neutrophils # Man Monocytes # (Manual) PT INR Activated Clotting Time POC ABG pH 7.516 H POC ABG pCO2 28.0 L POC ABG pO2 Sodium Potassium Chloride Carbon Dioxide 21 L BUN 23 H Creatinine 0.2 L Glucose 137 H POC Glucose 131 H Calcium 7.9 L Magnesium Direct Bilirubin AST ALT Alkaline Phosphatase Total Creatine Kinase CK-MB (CK-2) CK-MB (CK-2) Rel Index Troponin T C-Reactive Protein Total Protein Albumin Triglycerides Ur Specific [place] Urine WBC (Auto) Miscellaneous Test 04/19/17 04/19/17 04/20/17 12:36 17:42 00:12 WBC RBC Hgb Hct MCV MCH RDW Plt Count Lymph % (Auto) [place] % (Auto) Eos % (Auto) Baso % (Auto) Lymph # Baso # Seg Neutrophils % Lymphocytes % (Manual) Monocytes % (Manual) Nucleated RBC % Seg Neutrophils # Seg Neutrophils # Man Monocytes # (Manual) PT INR Activated Clotting Time POC ABG pH POC ABG pCO2 POC ABG pO2 Sodium Potassium Chloride Carbon Dioxide BUN Creatinine Glucose POC Glucose 128 H 140 H 132 H Calcium Magnesium Direct Bilirubin AST ALT Alkaline Phosphatase Total Creatine Kinase CK-MB (CK-2) CK-MB (CK-2) Rel Index Troponin T C-Reactive Protein Total Protein Albumin Triglycerides Ur Specific [place] Urine WBC (Auto) Miscellaneous Test 04/20/17 04/20/17 04/20/17 03:35 03:35 05:10 WBC RBC 3.34 L Hgb 10.4 L Hct 31.6 L MCV 95 H MCH RDW Plt Count Lymph % (Auto) 12.9 L [place] % (Auto) Eos % (Auto) Baso % (Auto) Lymph # Baso # Seg Neutrophils % 77.3 H Lymphocytes % (Manual) Monocytes % (Manual) Nucleated RBC % Seg Neutrophils # Seg Neutrophils # Man Monocytes # (Manual) PT INR Activated Clotting Time POC ABG pH POC ABG pCO2 POC ABG pO2 Sodium Potassium Chloride Carbon Dioxide BUN Creatinine 0.3 L Glucose 155 H POC Glucose 135 H Calcium 7.8 L Magnesium Direct Bilirubin AST ALT Alkaline Phosphatase Total Creatine Kinase CK-MB (CK-2) CK-MB (CK-2) Rel Index Troponin T C-Reactive Protein Total Protein Albumin Triglycerides Ur Specific [place] Urine WBC (Auto) Miscellaneous Test 04/20/17 04/20/17 04/21/17 12:49 18:21 00:05 WBC RBC Hgb Hct MCV MCH RDW Plt Count Lymph % (Auto) [place] % (Auto) Eos % (Auto) Baso % (Auto) Lymph # Baso # Seg Neutrophils % Lymphocytes % (Manual) Monocytes % (Manual) Nucleated RBC % Seg Neutrophils # Seg Neutrophils # Man Monocytes # (Manual) PT INR Activated Clotting Time POC ABG pH POC ABG pCO2 POC ABG pO2 Sodium Potassium Chloride Carbon Dioxide BUN Creatinine Glucose POC Glucose 155 H 165 H 141 H Calcium Magnesium Direct Bilirubin AST ALT Alkaline Phosphatase Total Creatine Kinase CK-MB (CK-2) CK-MB (CK-2) Rel Index Troponin T C-Reactive Protein Total Protein Albumin Triglycerides Ur Specific [place] Urine WBC (Auto) Miscellaneous Test 04/21/17 04/21/17 04/21/17 06:00 12:11 17:04 WBC RBC Hgb Hct MCV MCH RDW Plt Count Lymph % (Auto) [place] % (Auto) Eos % (Auto) Baso % (Auto) Lymph # Baso # Seg Neutrophils % Lymphocytes % (Manual) Monocytes % (Manual) Nucleated RBC % Seg Neutrophils # Seg Neutrophils # Man Monocytes # (Manual) PT INR Activated Clotting Time POC ABG pH POC ABG pCO2 POC ABG pO2 Sodium Potassium Chloride Carbon Dioxide BUN Creatinine Glucose POC Glucose 152 H 165 H 156 H Calcium Magnesium Direct Bilirubin AST ALT Alkaline Phosphatase Total Creatine Kinase CK-MB (CK-2) CK-MB (CK-2) Rel Index Troponin T C-Reactive Protein Total Protein Albumin Triglycerides Ur Specific [place] Urine WBC (Auto) Miscellaneous Test 04/21/17 04/21/17 04/22/17 22:00 23:59 05:49 WBC RBC Hgb Hct MCV MCH RDW Plt Count Lymph % (Auto) [place] % (Auto) Eos % (Auto) Baso % (Auto) Lymph # Baso # Seg Neutrophils % Lymphocytes % (Manual) Monocytes % (Manual) Nucleated RBC % Seg Neutrophils # Seg Neutrophils # Man Monocytes # (Manual) PT INR Activated Clotting Time POC ABG pH POC ABG pCO2 POC ABG pO2 Sodium Potassium Chloride Carbon Dioxide BUN Creatinine Glucose POC Glucose 166 H 173 H Calcium Magnesium Direct Bilirubin AST ALT Alkaline Phosphatase Total Creatine Kinase CK-MB (CK-2) CK-MB (CK-2) Rel Index Troponin T C-Reactive Protein Total Protein Albumin Triglycerides Ur Specific [place] Urine WBC (Auto) 10.0 H Miscellaneous Test 04/22/17 04/22/17 04/23/17 11:11 18:04 00:37 WBC RBC Hgb Hct MCV MCH RDW Plt Count Lymph % (Auto) [place] % (Auto) Eos % (Auto) Baso % (Auto) Lymph # Baso # Seg Neutrophils % Lymphocytes % (Manual) Monocytes % (Manual) Nucleated RBC % Seg Neutrophils # Seg Neutrophils # Man Monocytes # (Manual) PT INR Activated Clotting Time POC ABG pH POC ABG pCO2 POC ABG pO2 Sodium Potassium Chloride Carbon Dioxide BUN Creatinine Glucose POC Glucose 172 H 140 H 135 H Calcium Magnesium Direct Bilirubin AST ALT Alkaline Phosphatase Total Creatine Kinase CK-MB (CK-2) CK-MB (CK-2) Rel Index Troponin T C-Reactive Protein Total Protein Albumin Triglycerides Ur Specific [place] Urine WBC (Auto) Miscellaneous Test 04/23/17 04/23/17 04/23/17 05:33 06:20 11:10 WBC RBC 3.19 L Hgb 9.9 L Hct 30.0 L MCV MCH RDW Plt Count Lymph % (Auto) 8.0 L [place] % (Auto) Eos % (Auto) Baso % (Auto) Lymph # 0.8 L Baso # Seg Neutrophils % 84.5 H Lymphocytes % (Manual) Monocytes % (Manual) Nucleated RBC % Seg Neutrophils # 8.2 H Seg Neutrophils # Man Monocytes # (Manual) PT INR Activated Clotting Time POC ABG pH POC ABG pCO2 POC ABG pO2 Sodium Potassium Chloride Carbon Dioxide BUN Creatinine Glucose POC Glucose 134 H 134 H Calcium Magnesium Direct Bilirubin AST ALT Alkaline Phosphatase Total Creatine Kinase CK-MB (CK-2) CK-MB (CK-2) Rel Index Troponin T C-Reactive Protein Total Protein Albumin Triglycerides Ur Specific [place] Urine WBC (Auto) Miscellaneous Test 04/23/17 04/24/17 04/24/17 17:26 00:53 06:46 WBC RBC Hgb Hct MCV MCH RDW Plt Count Lymph % (Auto) [place] % (Auto) Eos % (Auto) Baso % (Auto) Lymph # Baso # Seg Neutrophils % Lymphocytes % (Manual) Monocytes % (Manual) Nucleated RBC % Seg Neutrophils # Seg Neutrophils # Man Monocytes # (Manual) PT INR Activated Clotting Time POC ABG pH POC ABG pCO2 POC ABG pO2 Sodium Potassium Chloride Carbon Dioxide BUN Creatinine Glucose POC Glucose 164 H 146 H 125 H Calcium Magnesium Direct Bilirubin AST ALT Alkaline Phosphatase Total Creatine Kinase CK-MB (CK-2) CK-MB (CK-2) Rel Index Troponin T C-Reactive Protein Total Protein Albumin Triglycerides Ur Specific [place] Urine WBC (Auto) Miscellaneous Test 04/24/17 04/24/17 04/24/17 11:55 17:50 23:36 WBC RBC Hgb Hct MCV MCH RDW Plt Count Lymph % (Auto) [place] % (Auto) Eos % (Auto) Baso % (Auto) Lymph # Baso # Seg Neutrophils % Lymphocytes % (Manual) Monocytes % (Manual) Nucleated RBC % Seg Neutrophils # Seg Neutrophils # Man Monocytes # (Manual) PT INR Activated Clotting Time POC ABG pH POC ABG pCO2 POC ABG pO2 Sodium Potassium Chloride Carbon Dioxide BUN Creatinine Glucose POC Glucose 156 H 146 H 131 H Calcium Magnesium Direct Bilirubin AST ALT Alkaline Phosphatase Total Creatine Kinase CK-MB (CK-2) CK-MB (CK-2) Rel Index Troponin T C-Reactive Protein Total Protein Albumin Triglycerides Ur Specific [place] Urine WBC (Auto) Miscellaneous Test 0104/25/17 04/25/17 04:51 05:16 07:07 WBC RBC Hgb Hct MCV MCH RDW Plt Count Lymph % (Auto) [place] % (Auto) Eos % (Auto) Baso % (Auto) Lymph # Baso # Seg Neutrophils % Lymphocytes % (Manual) Monocytes % (Manual) Nucleated RBC % Seg Neutrophils # Seg Neutrophils # Man Monocytes # (Manual) PT INR Activated Clotting Time POC ABG pH POC ABG pCO2 POC ABG pO2 Sodium Potassium Chloride Carbon Dioxide BUN Creatinine Glucose POC Glucose 139 H Calcium Magnesium Direct Bilirubin AST 105 H ALT 204 H Alkaline Phosphatase 189 H Total Creatine Kinase CK-MB (CK-2) CK-MB (CK-2) Rel Index Troponin T C-Reactive Protein Total Protein Albumin 2.4 L Triglycerides Ur Specific [place] Urine WBC (Auto) Miscellaneous Test Flexitest 1 H 04/25/17 04/25/17 04/25/17 12:29 17:23 23:32 WBC RBC Hgb Hct MCV MCH RDW Plt Count Lymph % (Auto) [place] % (Auto) Eos % (Auto) Baso % (Auto) Lymph # Baso # Seg Neutrophils % Lymphocytes % (Manual) Monocytes % (Manual) Nucleated RBC % Seg Neutrophils # Seg Neutrophils # Man Monocytes # (Manual) PT INR Activated Clotting Time POC ABG pH POC ABG pCO2 POC ABG pO2 Sodium Potassium Chloride Carbon Dioxide BUN Creatinine Glucose POC Glucose 132 H 133 H 128 H Calcium Magnesium Direct Bilirubin AST ALT Alkaline Phosphatase Total Creatine Kinase CK-MB (CK-2) CK-MB (CK-2) Rel Index Troponin T C-Reactive Protein Total Protein Albumin Triglycerides Ur Specific [place] Urine WBC (Auto) Miscellaneous Test 04/26/17 04/26/17 04/26/17 05:24 11:28 17:09 WBC RBC Hgb Hct MCV MCH RDW Plt Count Lymph % (Auto) [place] % (Auto) Eos % (Auto) Baso % (Auto) Lymph # Baso # Seg Neutrophils % Lymphocytes % (Manual) Monocytes % (Manual) Nucleated RBC % Seg Neutrophils # Seg Neutrophils # Man Monocytes # (Manual) PT INR Activated Clotting Time POC ABG pH POC ABG pCO2 POC ABG pO2 Sodium Potassium Chloride Carbon Dioxide BUN Creatinine Glucose POC Glucose 132 H 146 H 141 H Calcium Magnesium Direct Bilirubin AST ALT Alkaline Phosphatase Total Creatine Kinase CK-MB (CK-2) CK-MB (CK-2) Rel Index Troponin T C-Reactive Protein Total Protein Albumin Triglycerides Ur Specific [place] Urine WBC (Auto) Miscellaneous Test 04/26/17 04/27/17 04/27/17 23:52 05:40 05:40 WBC RBC 3.22 L Hgb 10.0 L Hct 29.9 L MCV MCH RDW Plt Count Lymph % (Auto) [place] % (Auto) Eos % (Auto) Baso % (Auto) Lymph # Baso # Seg Neutrophils % 76.6 H Lymphocytes % (Manual) Monocytes % (Manual) Nucleated RBC % Seg Neutrophils # Seg Neutrophils # Man Monocytes # (Manual) PT INR Activated Clotting Time POC ABG pH POC ABG pCO2 POC ABG pO2 Sodium Potassium Chloride Carbon Dioxide BUN Creatinine Glucose POC Glucose 140 H Calcium Magnesium Direct Bilirubin AST 66 H ALT 137 H Alkaline Phosphatase 169 H Total Creatine Kinase CK-MB (CK-2) CK-MB (CK-2) Rel Index Troponin T C-Reactive Protein Total Protein 6.2 L Albumin 2.6 L Triglycerides Ur Specific [place] Urine WBC (Auto) Miscellaneous Test 04/27/17 04/27/17 04/27/17 05:40 06:10 11:13 WBC RBC Hgb Hct MCV MCH RDW Plt Count Lymph % (Auto) [place] % (Auto) Eos % (Auto) Baso % (Auto) Lymph # Baso # Seg Neutrophils % Lymphocytes % (Manual) Monocytes % (Manual) Nucleated RBC % Seg Neutrophils # Seg Neutrophils # Man Monocytes # (Manual) PT INR Activated Clotting Time POC ABG pH POC ABG pCO2 POC ABG pO2 Sodium Potassium Chloride Carbon Dioxide BUN Creatinine 0.2 L Glucose 139 H POC Glucose 130 H 151 H Calcium Magnesium Direct Bilirubin AST ALT Alkaline Phosphatase Total Creatine Kinase CK-MB (CK-2) CK-MB (CK-2) Rel Index Troponin T C-Reactive Protein Total Protein Albumin Triglycerides Ur Specific [place] Urine WBC (Auto) Miscellaneous Test 04/27/17 04/27/17 04/28/17 17:37 23:19 05:24 WBC RBC Hgb Hct MCV MCH RDW Plt Count Lymph % (Auto) [place] % (Auto) Eos % (Auto) Baso % (Auto) Lymph # Baso # Seg Neutrophils % Lymphocytes % (Manual) Monocytes % (Manual) Nucleated RBC % Seg Neutrophils # Seg Neutrophils # Man Monocytes # (Manual) PT INR Activated Clotting Time POC ABG pH POC ABG pCO2 POC ABG pO2 Sodium Potassium Chloride Carbon Dioxide BUN Creatinine Glucose POC Glucose 159 H 130 H 132 H Calcium Magnesium Direct Bilirubin AST ALT Alkaline Phosphatase Total Creatine Kinase CK-MB (CK-2) CK-MB (CK-2) Rel Index Troponin T C-Reactive Protein Total Protein Albumin Triglycerides Ur Specific [place] Urine WBC (Auto) Miscellaneous Test 04/28/17 04/28/17 04/28/17 11:15 17:38 23:23 WBC RBC Hgb Hct MCV MCH RDW Plt Count Lymph % (Auto) [place] % (Auto) Eos % (Auto) Baso % (Auto) Lymph # Baso # Seg Neutrophils % Lymphocytes % (Manual) Monocytes % (Manual) Nucleated RBC % Seg Neutrophils # Seg Neutrophils # Man Monocytes # (Manual) PT INR Activated Clotting Time POC ABG pH POC ABG pCO2 POC ABG pO2 Sodium Potassium Chloride Carbon Dioxide BUN Creatinine Glucose POC Glucose 162 H 133 H 138 H Calcium Magnesium Direct Bilirubin AST ALT Alkaline Phosphatase Total Creatine Kinase CK-MB (CK-2) CK-MB (CK-2) Rel Index Troponin T C-Reactive Protein Total Protein Albumin Triglycerides Ur Specific [place] Urine WBC (Auto) Miscellaneous Test 04/29/17 04/29/17 04/29/17 05:15 12:55 17:21 WBC RBC Hgb Hct MCV MCH RDW Plt Count Lymph % (Auto) [place] % (Auto) Eos % (Auto) Baso % (Auto) Lymph # Baso # Seg Neutrophils % Lymphocytes % (Manual) Monocytes % (Manual) Nucleated RBC % Seg Neutrophils # Seg Neutrophils # Man Monocytes # (Manual) PT INR Activated Clotting Time POC ABG pH POC ABG pCO2 POC ABG pO2 Sodium Potassium Chloride Carbon Dioxide BUN Creatinine Glucose POC Glucose 135 H 127 H 138 H Calcium Magnesium Direct Bilirubin AST ALT Alkaline Phosphatase Total Creatine Kinase CK-MB (CK-2) CK-MB (CK-2) Rel Index Troponin T C-Reactive Protein Total Protein Albumin Triglycerides Ur Specific [place] Urine WBC (Auto) Miscellaneous Test 04/29/17 04/30/17 04/30/17 23:52 04:55 12:22 WBC RBC Hgb Hct MCV MCH RDW Plt Count Lymph % (Auto) [place] % (Auto) Eos % (Auto) Baso % (Auto) Lymph # Baso # Seg Neutrophils % Lymphocytes % (Manual) Monocytes % (Manual) Nucleated RBC % Seg Neutrophils # Seg Neutrophils # Man Monocytes # (Manual) PT INR Activated Clotting Time POC ABG pH POC ABG pCO2 POC ABG pO2 Sodium Potassium Chloride Carbon Dioxide BUN Creatinine Glucose POC Glucose 142 H 146 H 132 H Calcium Magnesium Direct Bilirubin AST ALT Alkaline Phosphatase Total Creatine Kinase CK-MB (CK-2) CK-MB (CK-2) Rel Index Troponin T C-Reactive Protein Total Protein Albumin Triglycerides Ur Specific [place] Urine WBC (Auto) Miscellaneous Test 04/30/17 04/30/17 04/30/17 14:25 17:47 18:20 WBC RBC Hgb Hct MCV MCH RDW Plt Count Lymph % (Auto) [place] % (Auto) Eos % (Auto) Baso % (Auto) Lymph # Baso # Seg Neutrophils % Lymphocytes % (Manual) Monocytes % (Manual) Nucleated RBC % Seg Neutrophils # Seg Neutrophils # Man Monocytes # (Manual) PT INR Activated Clotting Time POC ABG pH 7.551 H POC ABG pCO2 32.7 L POC ABG pO2 Sodium Potassium Chloride Carbon Dioxide BUN 21 H Creatinine 0.2 L Glucose 141 H POC Glucose 139 H Calcium Magnesium Direct Bilirubin AST ALT Alkaline Phosphatase Total Creatine Kinase CK-MB (CK-2) CK-MB (CK-2) Rel Index Troponin T C-Reactive Protein Total Protein Albumin Triglycerides Ur Specific [place] Urine WBC (Auto) Miscellaneous Test 05/01/17 05/01/17 05/01/17 01:26 05:30 05:30 WBC RBC 3.49 L Hgb 10.3 L Hct 31.9 L MCV MCH RDW Plt Count Lymph % (Auto) [place] % (Auto) 8.1 H Eos % (Auto) Baso % (Auto) Lymph # Baso # Seg Neutrophils % 71.3 H Lymphocytes % (Manual) Monocytes % (Manual) Nucleated RBC % Seg Neutrophils # Seg Neutrophils # Man Monocytes # (Manual) PT INR Activated Clotting Time POC ABG pH POC ABG pCO2 POC ABG pO2 Sodium 136 L Potassium Chloride 97.6 L Carbon Dioxide BUN Creatinine 0.2 L Glucose 123 H POC Glucose 116 H Calcium Magnesium Direct Bilirubin AST 71 H ALT 125 H Alkaline Phosphatase 158 H Total Creatine Kinase CK-MB (CK-2) CK-MB (CK-2) Rel Index Troponin T C-Reactive Protein Total Protein Albumin 2.6 L Triglycerides Ur Specific [place] Urine WBC (Auto) Miscellaneous Test 05/01/17 05/01/17 05/02/17 11:59 17:23 00:08 WBC RBC Hgb Hct MCV MCH RDW Plt Count Lymph % (Auto) [place] % (Auto) Eos % (Auto) Baso % (Auto) Lymph # Baso # Seg Neutrophils % Lymphocytes % (Manual) Monocytes % (Manual) Nucleated RBC % Seg Neutrophils # Seg Neutrophils # Man Monocytes # (Manual) PT INR Activated Clotting Time POC ABG pH POC ABG pCO2 POC ABG pO2 Sodium Potassium Chloride Carbon Dioxide BUN Creatinine Glucose POC Glucose 118 H 144 H 122 H Calcium Magnesium Direct Bilirubin AST ALT Alkaline Phosphatase Total Creatine Kinase CK-MB (CK-2) CK-MB (CK-2) Rel Index Troponin T C-Reactive Protein Total Protein Albumin Triglycerides Ur Specific [place] Urine WBC (Auto) Miscellaneous Test 05/02/17 05/02/17 05/02/17 05:50 11:21 17:48 WBC RBC Hgb Hct MCV MCH RDW Plt Count Lymph % (Auto) [place] % (Auto) Eos % (Auto) Baso % (Auto) Lymph # Baso # Seg Neutrophils % Lymphocytes % (Manual) Monocytes % (Manual) Nucleated RBC % Seg Neutrophils # Seg Neutrophils # Man Monocytes # (Manual) PT INR Activated Clotting Time POC ABG pH POC ABG pCO2 POC ABG pO2 Sodium Potassium Chloride Carbon Dioxide BUN Creatinine Glucose POC Glucose 120 H 121 H 140 H Calcium Magnesium Direct Bilirubin AST ALT Alkaline Phosphatase Total Creatine Kinase CK-MB (CK-2) CK-MB (CK-2) Rel Index Troponin T C-Reactive Protein Total Protein Albumin Triglycerides Ur Specific [place] Urine WBC (Auto) Miscellaneous Test 05/02/17 05/03/17 05/03/17 23:12 05:35 11:52 WBC RBC Hgb Hct MCV MCH RDW Plt Count Lymph % (Auto) [place] % (Auto) Eos % (Auto) Baso % (Auto) Lymph # Baso # Seg Neutrophils % Lymphocytes % (Manual) Monocytes % (Manual) Nucleated RBC % Seg Neutrophils # Seg Neutrophils # Man Monocytes # (Manual) PT INR Activated Clotting Time POC ABG pH POC ABG pCO2 POC ABG pO2 Sodium Potassium Chloride Carbon Dioxide BUN Creatinine Glucose POC Glucose 128 H 113 H 126 H Calcium Magnesium Direct Bilirubin AST ALT Alkaline Phosphatase Total Creatine Kinase CK-MB (CK-2) CK-MB (CK-2) Rel Index Troponin T C-Reactive Protein Total Protein Albumin Triglycerides Ur Specific [place] Urine WBC (Auto) Miscellaneous Test 05/03/17 05/03/17 05/04/17 17:29 23:26 04:55 WBC RBC Hgb Hct MCV MCH RDW Plt Count Lymph % (Auto) [place] % (Auto) Eos % (Auto) Baso % (Auto) Lymph # Baso # Seg Neutrophils % Lymphocytes % (Manual) Monocytes % (Manual) Nucleated RBC % Seg Neutrophils # Seg Neutrophils # Man Monocytes # (Manual) PT INR Activated Clotting Time POC ABG pH POC ABG pCO2 POC ABG pO2 Sodium Potassium Chloride Carbon Dioxide BUN Creatinine Glucose POC Glucose 141 H 129 H 126 H Calcium Magnesium Direct Bilirubin AST ALT Alkaline Phosphatase Total Creatine Kinase CK-MB (CK-2) CK-MB (CK-2) Rel Index Troponin T C-Reactive Protein Total Protein Albumin Triglycerides Ur Specific Ponderosa Urine WBC (Auto) Miscellaneous Test 05/04/17 05/04/17 05/05/17 12:09 17:46 00:06 WBC RBC Hgb Hct MCV MCH RDW Plt Count Lymph % (Auto) [place] % (Auto) Eos % (Auto) Baso % (Auto) Lymph # Baso # Seg Neutrophils % Lymphocytes % (Manual) Monocytes % (Manual) Nucleated RBC % Seg Neutrophils # Seg Neutrophils # Man Monocytes # (Manual) PT INR Activated Clotting Time POC ABG pH POC ABG pCO2 POC ABG pO2 Sodium Potassium Chloride Carbon Dioxide BUN Creatinine Glucose POC Glucose 125 H 125 H 110 H Calcium Magnesium Direct Bilirubin AST ALT Alkaline Phosphatase Total Creatine Kinase CK-MB (CK-2) CK-MB (CK-2) Rel Index Troponin T C-Reactive Protein Total Protein Albumin Triglycerides Ur Specific [place] Urine WBC (Auto) Miscellaneous Test 05/05/17 05/05/17 05/05/17 05:48 11:41 16:19 WBC RBC Hgb Hct MCV MCH RDW Plt Count Lymph % (Auto) [place] % (Auto) Eos % (Auto) Baso % (Auto) Lymph # Baso # Seg Neutrophils % Lymphocytes % (Manual) Monocytes % (Manual) Nucleated RBC % Seg Neutrophils # Seg Neutrophils # Man Monocytes # (Manual) PT INR Activated Clotting Time POC ABG pH POC ABG pCO2 POC ABG pO2 Sodium Potassium Chloride Carbon Dioxide BUN Creatinine Glucose POC Glucose 124 H 122 H 120 H Calcium Magnesium Direct Bilirubin AST ALT Alkaline Phosphatase Total Creatine Kinase CK-MB (CK-2) CK-MB (CK-2) Rel Index Troponin T C-Reactive Protein Total Protein Albumin Triglycerides Ur Specific [place] Urine WBC (Auto) Miscellaneous Test 05/06/17 05/06/17 05/06/17 00:16 05:47 11:42 WBC RBC Hgb Hct MCV MCH RDW Plt Count Lymph % (Auto) [place] % (Auto) Eos % (Auto) Baso % (Auto) Lymph # Baso # Seg Neutrophils % Lymphocytes % (Manual) Monocytes % (Manual) Nucleated RBC % Seg Neutrophils # Seg Neutrophils # Man Monocytes # (Manual) PT INR Activated Clotting Time POC ABG pH POC ABG pCO2 POC ABG pO2 Sodium Potassium Chloride Carbon Dioxide BUN Creatinine Glucose POC Glucose 110 H 142 H 120 H Calcium Magnesium Direct Bilirubin AST ALT Alkaline Phosphatase Total Creatine Kinase CK-MB (CK-2) CK-MB (CK-2) Rel Index Troponin T C-Reactive Protein Total Protein Albumin Triglycerides Ur Specific [place] Urine WBC (Auto) Miscellaneous Test 05/06/17 05/07/17 05/07/17 17:46 00:07 05:28 WBC RBC Hgb Hct MCV MCH RDW Plt Count Lymph % (Auto) [place] % (Auto) Eos % (Auto) Baso % (Auto) Lymph # Baso # Seg Neutrophils % Lymphocytes % (Manual) Monocytes % (Manual) Nucleated RBC % Seg Neutrophils # Seg Neutrophils # Man Monocytes # (Manual) PT INR Activated Clotting Time POC ABG pH POC ABG pCO2 POC ABG pO2 Sodium Potassium Chloride Carbon Dioxide BUN Creatinine Glucose POC Glucose 127 H 145 H 124 H Calcium Magnesium Direct Bilirubin AST ALT Alkaline Phosphatase Total Creatine Kinase CK-MB (CK-2) CK-MB (CK-2) Rel Index Troponin T C-Reactive Protein Total Protein Albumin Triglycerides Ur Specific [place] Urine WBC (Auto) Miscellaneous Test 05/07/17 05/07/17 05/08/17 11:17 17:14 00:03 WBC RBC Hgb Hct MCV MCH RDW Plt Count Lymph % (Auto) [place] % (Auto) Eos % (Auto) Baso % (Auto) Lymph # Baso # Seg Neutrophils % Lymphocytes % (Manual) Monocytes % (Manual) Nucleated RBC % Seg Neutrophils # Seg Neutrophils # Man Monocytes # (Manual) PT INR Activated Clotting Time POC ABG pH POC ABG pCO2 POC ABG pO2 Sodium Potassium Chloride Carbon Dioxide BUN Creatinine Glucose POC Glucose 144 H 125 H 122 H Calcium Magnesium Direct Bilirubin AST ALT Alkaline Phosphatase Total Creatine Kinase CK-MB (CK-2) CK-MB (CK-2) Rel Index Troponin T C-Reactive Protein Total Protein Albumin Triglycerides Ur Specific [place] Urine WBC (Auto) Miscellaneous Test 05/08/17 05/08/17 05/08/17 05:43 12:07 18:02 WBC RBC Hgb Hct MCV MCH RDW Plt Count Lymph % (Auto) [place] % (Auto) Eos % (Auto) Baso % (Auto) Lymph # Baso # Seg Neutrophils % Lymphocytes % (Manual) Monocytes % (Manual) Nucleated RBC % Seg Neutrophils # Seg Neutrophils # Man Monocytes # (Manual) PT INR Activated Clotting Time POC ABG pH POC ABG pCO2 POC ABG pO2 Sodium Potassium Chloride Carbon Dioxide BUN Creatinine Glucose POC Glucose 117 H 114 H 129 H Calcium Magnesium Direct Bilirubin AST ALT Alkaline Phosphatase Total Creatine Kinase CK-MB (CK-2) CK-MB (CK-2) Rel Index Troponin T C-Reactive Protein Total Protein Albumin Triglycerides Ur Specific [place] Urine WBC (Auto) Miscellaneous Test 05/08/17 05/09/17 05/09/17 23:53 04:19 05:14 WBC RBC Hgb Hct MCV MCH RDW Plt Count Lymph % (Auto) [place] % (Auto) Eos % (Auto) Baso % (Auto) Lymph # Baso # Seg Neutrophils % Lymphocytes % (Manual) Monocytes % (Manual) Nucleated RBC % Seg Neutrophils # Seg Neutrophils # Man Monocytes # (Manual) PT INR Activated Clotting Time POC ABG pH 7.524 H POC ABG pCO2 34.7 L POC ABG pO2 107 H Sodium Potassium Chloride Carbon Dioxide BUN Creatinine Glucose POC Glucose 125 H 118 H Calcium Magnesium Direct Bilirubin AST ALT Alkaline Phosphatase Total Creatine Kinase CK-MB (CK-2) CK-MB (CK-2) Rel Index Troponin T C-Reactive Protein Total Protein Albumin Triglycerides Ur Specific [place] Urine WBC (Auto) Miscellaneous Test 05/10/17 05/11/17 05/11/17 23:54 05:48 23:50 WBC RBC Hgb Hct MCV MCH RDW Plt Count Lymph % (Auto) [place] % (Auto) Eos % (Auto) Baso % (Auto) Lymph # Baso # Seg Neutrophils % Lymphocytes % (Manual) Monocytes % (Manual) Nucleated RBC % Seg Neutrophils # Seg Neutrophils # Man Monocytes # (Manual) PT INR Activated Clotting Time POC ABG pH POC ABG pCO2 POC ABG pO2 Sodium Potassium Chloride Carbon Dioxide BUN Creatinine Glucose POC Glucose 126 H 137 H 130 H Calcium Magnesium Direct Bilirubin AST ALT Alkaline Phosphatase Total Creatine Kinase CK-MB (CK-2) CK-MB (CK-2) Rel Index Troponin T C-Reactive Protein Total Protein Albumin Triglycerides Ur Specific [place] Urine WBC (Auto) Miscellaneous Test 05/12/17 05/12/17 05/12/17 05:48 11:33 18:00 WBC RBC Hgb Hct MCV MCH RDW Plt Count Lymph % (Auto) [place] % (Auto) Eos % (Auto) Baso % (Auto) Lymph # Baso # Seg Neutrophils % Lymphocytes % (Manual) Monocytes % (Manual) Nucleated RBC % Seg Neutrophils # Seg Neutrophils # Man Monocytes # (Manual) PT INR Activated Clotting Time POC ABG pH POC ABG pCO2 POC ABG pO2 Sodium Potassium Chloride Carbon Dioxide BUN Creatinine Glucose POC Glucose 126 H 116 H 131 H Calcium Magnesium Direct Bilirubin AST ALT Alkaline Phosphatase Total Creatine Kinase CK-MB (CK-2) CK-MB (CK-2) Rel Index Troponin T C-Reactive Protein Total Protein Albumin Triglycerides Ur Specific [place] Urine WBC (Auto) Miscellaneous Test 05/14/17 05/15/17 05/15/17 11:45 11:27 17:42 WBC RBC Hgb Hct MCV MCH RDW Plt Count Lymph % (Auto) [place] % (Auto) Eos % (Auto) Baso % (Auto) Lymph # Baso # Seg Neutrophils % Lymphocytes % (Manual) Monocytes % (Manual) Nucleated RBC % Seg Neutrophils # Seg Neutrophils # Man Monocytes # (Manual) PT INR Activated Clotting Time POC ABG pH POC ABG pCO2 POC ABG pO2 Sodium Potassium Chloride Carbon Dioxide BUN Creatinine Glucose POC Glucose 123 H 129 H 125 H Calcium Magnesium Direct Bilirubin AST ALT Alkaline Phosphatase Total Creatine Kinase CK-MB (CK-2) CK-MB (CK-2) Rel Index Troponin T C-Reactive Protein Total Protein Albumin Triglycerides Ur Specific [place] Urine WBC (Auto) Miscellaneous Test 05/16/17 05/16/17 05/17/17 00:29 06:50 03:45 WBC RBC Hgb 11.7 L Hct 34.8 L MCV MCH RDW 15.5 H Plt Count Lymph % (Auto) [place] % (Auto) 7.7 H Eos % (Auto) Baso % (Auto) Lymph # Baso # Seg Neutrophils % 73.7 H Lymphocytes % (Manual) Monocytes % (Manual) Nucleated RBC % Seg Neutrophils # Seg Neutrophils # Man Monocytes # (Manual) PT INR Activated Clotting Time POC ABG pH POC ABG pCO2 POC ABG pO2 Sodium Potassium Chloride Carbon Dioxide BUN Creatinine Glucose POC Glucose 141 H 138 H Calcium Magnesium Direct Bilirubin AST ALT Alkaline Phosphatase Total Creatine Kinase CK-MB (CK-2) CK-MB (CK-2) Rel Index Troponin T C-Reactive Protein Total Protein Albumin Triglycerides Ur Specific [place] Urine WBC (Auto) Miscellaneous Test 05/17/17 05/20/17 03:45 17:31 WBC RBC Hgb Hct MCV MCH RDW Plt Count Lymph % (Auto) [place] % (Auto) Eos % (Auto) Baso % (Auto) Lymph # Baso # Seg Neutrophils % Lymphocytes % (Manual) Monocytes % (Manual) Nucleated RBC % Seg Neutrophils # Seg Neutrophils # Man Monocytes # (Manual) PT INR Activated Clotting Time POC ABG pH POC ABG pCO2 POC ABG pO2 Sodium Potassium Chloride Carbon Dioxide BUN Creatinine 0.2 L Glucose 131 H POC Glucose 116 H Calcium Magnesium Direct Bilirubin AST ALT Alkaline Phosphatase Total Creatine Kinase CK-MB (CK-2) CK-MB (CK-2) Rel Index Troponin T C-Reactive Protein Total Protein Albumin Triglycerides Ur Specific [place] Urine WBC (Auto) Miscellaneous Test
[2017-05-22] MEDS: ELIQUIS PO SCH ×2 (10:01→22:18)
[2017-05-22] MEDS: PLAVIX PO SCH (10:01)
[2017-05-22] MEDS: ASPIRIN PO SCH (10:01)
[2017-05-22] MEDS: CORDARONE PO SCH ×2 (10:02→22:18)
[2017-05-22] MEDS: PROTONIX FEEDTUBE SCH (10:02)
[2017-05-22] MEDS: LOPRESSOR PO SCH ×2 (10:08→22:19)
[2017-05-22] MEDS: ZESTRIL PO SCH (10:09)
--- NOTE | 2017-05-22 15:37 | Progress Note ---
Assessment and Plan Assessment and plan: 46 y/o male with out of hospital Vfib arrest, s/p LHC with stent placement, likely with anoxic encephalopathy, status post trach and peg. V. fib arrest status post CPR anoxic encephalopathy respiratory failure vent dependent tracheostomy and PEG placement MRSA pneumonia with status. Sepsis poor prognosis, full CODE STATUS -- acute hypoxic hypercapnic respiratory failure; status post trach, vent dependent, Failed psv trial --Hematuria; unknown etiology, resolved --Acute Cystitis --s/p cardiac arrest /anoxic encephalopathy/vegetative state --Acute anterior STEMI; status post PCI, --s/p MRSA pneumonia/aspiration pneumonia, s/p full treatment, contact isolation --Hypertension; monitor blood pressures and adjust medications as needed -- Aspiration pneumonia; sepsis; received full course of antibiotics --Cardiogenic shock; off pressors, --s/p trach and PEG, continue PEG feeds --Severe Protein calorie malnutrition: Peg feeds and nutrition supplements --DVT prophylaxis; Lovenox Continue current management --Full CODE STATUS Poor prognosis family aware, Multiple family meetings in the past. Still awaiting family decision Family has unrealistic expectations, requests to continue full CODE STATUS Dismal prognosis and bad outcome is expected as explained by neurology and Dr. Ham (see previous notes); t The high probability of a clinically significant, sudden or life threatening deterioration of the [NEUROLOGY] system(s) required my full and direct attention , intervention and personal management. The aggregate critical care time was [45 ] minutes. This time is in addition to time spent performing reported procedures but includes the following: [X] Data Review and interpretation [X] Patient assessment and monitoring of vital signs [X] Documentation [X] Medication orders and management History Interval history: Patient seen and examined, remains on full ventilatory support and unresponsive Hospitalist Physical - Physical exam Narrative exam: General appearance: Present: no acute distress, well-nourished, other ( tracheostomy on vent) - EENT Eyes: Present: PERRL (spontaneous opening of eyes) - Neck Neck: Present: supple, other (tracheostomy) - Respiratory Respiratory effort: normal Respiratory: bilateral: diminished, rhonchi - Cardiovascular Rhythm: regular Heart Sounds: Present: S1 & S2 - Extremities Extremities: no ischemia Extremity abnormal: edema (trace edema) - Abdominal General gastrointestinal: soft, non-tender, non-distended, normal bowel sounds, other (PEG in place and functional) - Integumentary Integumentary: Present: clear, warm - Psychiatric Psychiatric: other (noncommunicative) - Neurologic Neurologic: other (unresponsive) - Constitutional Vitals: Temp Pulse Resp BP Pulse Ox 98.8 F 70 22 101/52 100 05/22/17 12:00 05/22/17 12:00 05/22/17 12:00 05/22/17 11:47 05/22/17 12:00 General appearance: Present: no acute distress, well-nourished, other ( tracheostomy on vent) Results - Labs CBC & Chem 7: 05/17/17 03:45 05/17/17 03:45 Labs: Laboratory Last Values WBC 9.4 K/mm3 (4.5-11.0) 05/17/17 03:45 RBC 3.85 M/mm3 (3.65-5.03) 05/17/17 03:45 Hgb 11.7 gm/dl (11.8-15.2) L 05/17/17 03:45 Hct 34.8 % (35.5-45.6) L 05/17/17 03:45 MCV 90 fl (84-94) 05/17/17 03:45 MCH 31 pg (28-32) 05/17/17 03:45 MCHC 34 % (32-34) 05/17/17 03:45 RDW 15.5 % (13.2-15.2) H 05/17/17 03:45 Plt Count 289 K/mm3 (140-440) 05/17/17 03:45 Lymph % (Auto) 15.6 % (13.4-35.0) 05/17/17 03:45 [place] % (Auto) 7.7 % (0.0-7.3) H 05/17/17 03:45 Eos % (Auto) 2.7 % (0.0-4.3) 05/17/17 03:45 Baso % (Auto) 0.3 % (0.0-1.8) 05/17/17 03:45 Lymph # 1.5 K/mm3 (1.2-5.4) 05/17/17 03:45 [place] # 0.7 K/mm3 (0.0-0.8) 05/17/17 03:45 Eos # 0.3 K/mm3 (0.0-0.4) 05/17/17 03:45 Baso # 0.0 K/mm3 (0.0-0.1) 05/17/17 03:45 Add Manual Diff Complete 03/30/17 03:50 Total Counted 100 03/30/17 03:50 Seg Neutrophils % 73.7 % (40.0-70.0) H 05/17/17 03:45 Seg Neuts % (Manual) 65.0 % (40.0-70.0) 03/30/17 03:50 Band Neutrophils % 17.0 % 03/30/17 03:50 Lymphocytes % (Manual) 7.0 % (13.4-35.0) L 03/30/17 03:50 Reactive Lymphs % (Man) 0 % 03/30/17 03:50 Monocytes % (Manual) 7.0 % (0.0-7.3) 03/30/17 03:50 Eosinophils % (Manual) 0 % (0.0-4.3) 03/30/17 03:50 Basophils % (Manual) 0 % (0.0-1.8) 03/30/17 03:50 Metamyelocytes % 4.0 % 03/30/17 03:50 Myelocytes % 0 % 03/30/17 03:50 Promyelocytes % 0 % 03/30/17 03:50 Blast Cells % 0 % 03/30/17 03:50 Nucleated RBC % Not Reportable 03/30/17 03:50 Seg Neutrophils # 6.9 K/mm3 (1.8-7.7) 05/17/17 03:45 Seg Neutrophils # Man 12.7 K/mm3 (1.8-7.7) H 03/30/17 03:50 Band Neutrophils # 3.3 K/mm3 03/30/17 03:50 Lymphocytes # (Manual) 1.4 K/mm3 (1.2-5.4) 03/30/17 03:50 Abs React Lymphs (Man) 0.0 K/mm3 03/30/17 03:50 Monocytes # (Manual) 1.4 K/mm3 (0.0-0.8) H 03/30/17 03:50 Eosinophils # (Manual) 0.0 K/mm3 (0.0-0.4) 03/30/17 03:50 Basophils # (Manual) 0.0 K/mm3 (0.0-0.1) 03/30/17 03:50 Metamyelocytes # 0.8 K/mm3 03/30/17 03:50 Myelocytes # 0.0 K/mm3 03/30/17 03:50 Promyelocytes # 0.0 K/mm3 03/30/17 03:50 Blast Cells # 0.0 K/mm3 03/30/17 03:50 WBC Morphology Not Reportable 03/30/17 03:50 Hypersegmented Neuts Not Reportable 03/30/17 03:50 Hyposegmented Neuts Not Reportable 03/30/17 03:50 Hypogranular Neuts Not Reportable 03/30/17 03:50 Smudge Cells Not Reportable 03/30/17 03:50 Toxic Granulation Not Reportable 03/30/17 03:50 Toxic Vacuolation Not Reportable 03/30/17 03:50 Dohle Bodies Not Reportable 03/30/17 03:50 Pelger-Huet Anomaly Not Reportable 03/30/17 03:50 Sherry Rods Not Reportable 03/30/17 03:50 Platelet Estimate Appears normal 03/30/17 03:50 Clumped Platelets Not Reportable 03/30/17 03:50 Plt Clumps, EDTA Not Reportable 03/30/17 03:50 Large Platelets Not Reportable 03/30/17 03:50 Giant Platelets Not Reportable 03/30/17 03:50 Platelet Satelliting Not Reportable 03/30/17 03:50 Plt Morphology Comment Not Reportable 03/30/17 03:50 RBC Morphology Not Reportable 03/30/17 03:50 Dimorphic RBCs Not Reportable 03/30/17 03:50 Polychromasia Not Reportable 03/30/17 03:50 Hypochromasia Not Reportable 03/30/17 03:50 Poikilocytosis Not Reportable 03/30/17 03:50 Anisocytosis Few 03/30/17 03:50 Microcytosis Not Reportable 03/30/17 03:50 Macrocytosis Not Reportable 03/30/17 03:50 Spherocytes Not Reportable 03/30/17 03:50 Pappenheimer Bodies Not Reportable 03/30/17 03:50 Sickle Cells Not Reportable 03/30/17 03:50 Target Cells Not Reportable 03/30/17 03:50 Tear Drop Cells Not Reportable 03/30/17 03:50 Ovalocytes Not Reportable 03/30/17 03:50 Helmet Cells Not Reportable 03/30/17 03:50 [place] Bodies Not Reportable 03/30/17 03:50 [place] Rings Not Reportable 03/30/17 03:50 [place] Cells Not Reportable 03/30/17 03:50 Bite Cells Not Reportable 03/30/17 03:50 Crenated Cell Not Reportable 03/30/17 03:50 Elliptocytes Not Reportable 03/30/17 03:50 Acanthocytes (Spur) Not Reportable 03/30/17 03:50 Rouleaux Not Reportable 03/30/17 03:50 Hemoglobin C Crystals Not Reportable 03/30/17 03:50 Schistocytes Not Reportable 03/30/17 03:50 Malaria parasites Not Reportable 03/30/17 03:50 Jermaine Bodies Not Reportable 03/30/17 03:50 Hem Pathologist Commnt No 03/30/17 03:50 PT 14.9 Sec. (12.2-14.9) 04/10/17 04:16 INR 1.11 (0.87-1.13) 04/10/17 04:16 APTT 27.8 Sec. (24.2-36.6) 04/10/17 04:16 Activated Clotting Time 92 (74-137) 03/29/17 17:47 POC ABG pH 7.524 (7.35-7.45) H 05/09/17 04:19 POC ABG pCO2 34.7 (35-45) L 05/09/17 04:19 POC ABG pO2 107 (80-105) H 05/09/17 04:19 POC ABG HCO3 28.6 05/09/17 04:19 POC ABG Total CO2 30 05/09/17 04:19 POC ABG O2 Sat 99 05/09/17 04:19 POC ABG Base Excess 6 05/09/17 04:19 FiO2 25 % 05/09/17 04:19 Sodium 140 mmol/L (137-145) 05/17/17 03:45 Potassium 3.8 mmol/L (3.6-5.0) 05/17/17 03:45 Chloride 100.5 mmol/L (98-107) 05/17/17 03:45 Carbon Dioxide 25 mmol/L (22-30) 05/17/17 03:45 Anion Gap 18 mmol/L 05/17/17 03:45 BUN 17 mg/dL (9-20) 05/17/17 03:45 Creatinine 0.2 mg/dL (0.8-1.5) L 05/17/17 03:45 Estimated GFR > 60 ml/min 05/17/17 03:45 BUN/Creatinine Ratio 85 % 05/17/17 03:45 Glucose 131 mg/dL (75-100) H 05/17/17 03:45 POC Glucose 116 (70-105) H 05/20/17 17:31 Calcium 9.1 mg/dL (8.4-10.2) 05/17/17 03:45 Phosphorus 3.50 mg/dL (2.5-4.5) 04/13/17 04:45 Magnesium 1.80 mg/dL (1.7-2.3) 05/01/17 05:30 Total Bilirubin 0.60 mg/dL (0.1-1.2) 05/01/17 05:30 Direct Bilirubin < 0.2 mg/dL (0-0.2) 04/27/17 05:40 Indirect Bilirubin 0.3 mg/dL 04/25/17 04:51 AST 71 units/L (5-40) H 05/01/17 05:30 ALT 125 units/L (7-56) H 05/01/17 05:30 Alkaline Phosphatase 158 units/L (35-129) H 05/01/17 05:30 Total Creatine Kinase 1404 units/L (55-170) H 04/12/17 21:36 CK-MB (CK-2) 8.0 ng/mL (0.0-4.0) H 04/12/17 21:36 CK-MB (CK-2) Rel Index 0.5 (0-4) 04/12/17 21:36 Troponin T 0.767 ng/mL (0.00-0.029) H* 04/12/17 21:36 C-Reactive Protein 21.80 mg/dL (0.00-1.30) H 03/30/17 16:04 Total Protein 6.7 g/dL (6.3-8.2) 05/01/17 05:30 Albumin 2.6 g/dL (3.9-5) L 05/01/17 05:30 Albumin/Globulin Ratio 0.6 % 05/01/17 05:30 Triglycerides 151 mg/dL (2-149) H 04/01/17 04:29 Cholesterol 164 mg/dL (50-199) 03/29/17 19:52 LDL Cholesterol Direct 81 mg/dL (50-130) 03/29/17 19:52 HDL Cholesterol 44 mg/dL (40-59) 03/29/17 19:52 Cholesterol/HDL Ratio 3.72 % 03/29/17 19:52 Urine Color [place] (Yellow) 04/21/17 22:00 Urine Turbidity Clear (Clear) 04/21/17 22:00 Urine pH 5.0 (5.0-7.0) 04/21/17 22:00 Ur Specific [place] 1.029 (1.003-1.030) 04/21/17 22:00 Urine Protein 30 mg/dl mg/dL (Negative) 04/21/17 22:00 Urine Glucose (UA) Neg mg/dL (Negative) 04/21/17 22:00 Urine Ketones Neg mg/dL (Negative) 04/21/17 22:00 Urine Blood Mod (Negative) 04/21/17 22:00 Urine Nitrite Neg (Negative) 04/21/17 22:00 Urine Bilirubin Neg (Negative) 04/21/17 22:00 Urine Urobilinogen 4.0 mg/dL (<2.0) 04/21/17 22:00 Ur Leukocyte Esterase Neg (Negative) 04/21/17 22:00 Urine WBC (Auto) 10.0 /HPF (0.0-6.0) H 04/21/17 22:00 Urine RBC (Auto) 44.0 /HPF (0.0-6.0) 04/21/17 22:00 U Epithel Cells (Auto) < 1.0 /HPF (0-13.0) 04/21/17 22:00 Amorphous Crystals 1+ 03/30/17 09:45 Urine Mucus 3+ /HPF 04/21/17 22:00 Urine Opiates Screen Presumptive negative 03/30/17 09:45 Urine Methadone Screen Presumptive negative 03/30/17 09:45 Ur Barbiturates Screen Presumptive negative 03/30/17 09:45 Ur Phencyclidine Scrn Presumptive negative 03/30/17 09:45 Ur Amphetamines Screen Presumptive positive 03/30/17 09:45 U Benzodiazepines Scrn Presumptive positive 03/30/17 09:45 Urine Cocaine Screen Presumptive negative 03/30/17 09:45 U Marijuana (THC) Screen Presumptive negative 03/30/17 09:45 Drugs of Abuse Note Disclamer 03/30/17 09:45 Miscellaneous Test Flexitest 1 H 04/25/17 07:07 Blood Type O POSITIVE 03/29/17 11:35 Antibody Screen Negative 03/29/17 11:35
--- NOTE | 2017-05-23 09:16 | Progress Note ---
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 No new recommendations for today. Patient remains full code and will continue PSV as tolerated with hopes of weaning to T-piece 1. PSV as tolerated with a goal to get to T-piece 2. Once tolerates T-piece for 24 hours, can consider transfer to floor, this is highly unlikely. 3. reviewed neurology note and agree with assessment 4. Continue all other cardiac meds 5. Overall prognosis still remains poor given amount of downtime during arrest. 6. Family meeting held, they feel the patient will overcome this current state as they have had other family members do the same. Very in depth conversation about the prognosis and current clinical state. I've made my best attempt to help them understand. Neuro agrees. Will continue supportive measures and attempt to wean. CCT 31 minutes. Subjective Date of service: 05/23/17 Principal diagnosis: coma,ARV,s/p arrest Interval history: No acute events. Mental state has not changed. Objective Vital Signs - 12hr 05/22/17 05/22/17 05/22/17 22:00 22:19 22:47 Temperature Pulse Rate 70 71 76 Pulse Rate [ From Monitor] Respiratory 17 22 Rate Blood Pressure 91/59 91/59 91/59 O2 Sat by Pulse 98 98 Oximetry O2 Sat by Pulse Oximetry [ Assessment] 05/22/17 05/23/17 05/23/17 23:00 00:00 00:15 Temperature 98.5 F Pulse Rate 73 73 82 Pulse Rate [ 80 From Monitor] Respiratory 17 19 Rate Blood Pressure 98/63 93/60 93/60 O2 Sat by Pulse 96 98 98 Oximetry O2 Sat by Pulse Oximetry [ Assessment] 05/23/17 05/23/17 05/23/17 01:00 02:00 03:00 Temperature Pulse Rate 78 71 81 Pulse Rate [ From Monitor] Respiratory 25 H 16 17 Rate Blood Pressure 107/61 100/59 98/64 O2 Sat by Pulse 97 97 92 Oximetry O2 Sat by Pulse Oximetry [ Assessment] 05/23/17 05/23/17 05/23/17 03:10 04:00 04:20 Temperature Pulse Rate 70 72 Pulse Rate [ From Monitor] Respiratory 18 Rate Blood Pressure 101/55 101/55 O2 Sat by Pulse 98 99 Oximetry O2 Sat by Pulse 100 Oximetry [ Assessment] 05/23/17 05/23/17 05/23/17 05:01 06:00 07:00 Temperature Pulse Rate 83 75 70 Pulse Rate [ From Monitor] Respiratory 18 21 16 Rate Blood Pressure 101/55 105/62 95/58 O2 Sat by Pulse 99 99 Oximetry O2 Sat by Pulse Oximetry [ Assessment] 05/23/17 08:00 Temperature Pulse Rate 71 Pulse Rate [ 76 From Monitor] Respiratory 15 Rate Blood Pressure 87/57 O2 Sat by Pulse 96 Oximetry O2 Sat by Pulse Oximetry [ Assessment] Constitutional: no acute distress, comatose Eyes: non-icteric ENT: oropharynx moist Neck: supple, other (tracheotomy ) Effort: normal Ascultation: Bilateral: clear, diminished breath sounds, other (coarse BS bilaterally) Percussion: Bilateral: not dull Cardiovascular: regular rate and rhythm Gastrointestinal: normoactive bowel sounds, soft, non-tender, non-distended Integumentary: normal Extremities: no cyanosis, no edema, pink and warm Neurologic: other (nonresponsive with flaccid extremities) Psychiatric: other (eyes open spontaneously but does not follow any voice commands, otherwise nonresponsive except for pain) CBC and BMP: 05/17/17 03:45 05/17/17 03:45 ABG, PT/INR, D-dimer: ABG POC ABG pH 7.524 (7.35-7.45) H 05/09/17 04:19 POC ABG pCO2 34.7 (35-45) L 05/09/17 04:19 POC ABG pO2 107 (80-105) H 05/09/17 04:19 POC ABG HCO3 28.6 05/09/17 04:19 POC ABG Total CO2 30 05/09/17 04:19 POC ABG O2 Sat 99 05/09/17 04:19 PT/INR, D-dimer PT 14.9 Sec. (12.2-14.9) 04/10/17 04:16 INR 1.11 (0.87-1.13) 04/10/17 04:16 Abnormal lab findings: Abnormal Labs 03/29/17 03/29/17 03/29/17 11:35 11:35 11:40 WBC RBC Hgb Hct MCV 98 H MCH 33 H RDW Plt Count Lymph % (Auto) [place] % (Auto) Eos % (Auto) Baso % (Auto) Lymph # Baso # Seg Neutrophils % Lymphocytes % (Manual) Monocytes % (Manual) 9.0 H Nucleated RBC % 1.0 H Seg Neutrophils # Seg Neutrophils # Man Monocytes # (Manual) 0.9 H PT 15.8 H INR 1.20 H Activated Clotting Time POC ABG pH POC ABG pCO2 POC ABG pO2 Sodium Potassium 2.7 L* Chloride 95.3 L Carbon Dioxide 17 L BUN Creatinine Glucose 435 H POC Glucose Calcium Magnesium Direct Bilirubin AST ALT Alkaline Phosphatase Total Creatine Kinase CK-MB (CK-2) CK-MB (CK-2) Rel Index Troponin T C-Reactive Protein Total Protein 6.1 L Albumin 3.5 L Triglycerides Ur Specific Gilliam Urine WBC (Auto) Miscellaneous Test 03/29/17 03/29/17 03/29/17 12:34 13:10 13:25 WBC RBC Hgb Hct MCV MCH RDW Plt Count Lymph % (Auto) [place] % (Auto) Eos % (Auto) Baso % (Auto) Lymph # Baso # Seg Neutrophils % Lymphocytes % (Manual) Monocytes % (Manual) Nucleated RBC % Seg Neutrophils # Seg Neutrophils # Man Monocytes # (Manual) PT INR Activated Clotting Time 142 H 169 H 175 H POC ABG pH POC ABG pCO2 POC ABG pO2 Sodium Potassium Chloride Carbon Dioxide BUN Creatinine Glucose POC Glucose Calcium Magnesium Direct Bilirubin AST ALT Alkaline Phosphatase Total Creatine Kinase CK-MB (CK-2) CK-MB (CK-2) Rel Index Troponin T C-Reactive Protein Total Protein Albumin Triglycerides Ur Specific Gilliam Urine WBC (Auto) Miscellaneous Test 03/29/17 03/29/17 03/29/17 14:50 15:18 19:52 WBC RBC Hgb Hct MCV MCH RDW Plt Count Lymph % (Auto) [place] % (Auto) Eos % (Auto) Baso % (Auto) Lymph # Baso # Seg Neutrophils % Lymphocytes % (Manual) Monocytes % (Manual) Nucleated RBC % Seg Neutrophils # Seg Neutrophils # Man Monocytes # (Manual) PT INR Activated Clotting Time 175 H POC ABG pH 7.293 L POC ABG pCO2 POC ABG pO2 602 H Sodium Potassium Chloride Carbon Dioxide BUN Creatinine Glucose POC Glucose Calcium Magnesium Direct Bilirubin AST ALT Alkaline Phosphatase Total Creatine Kinase 7263 H CK-MB (CK-2) > 300.0 H CK-MB (CK-2) Rel Index 4.1 H Troponin T 8.080 H* D C-Reactive Protein Total Protein Albumin Triglycerides 195 H Ur Specific Gilliam Urine WBC (Auto) Miscellaneous Test 03/30/17 03/30/17 03/30/17 03:50 03:50 06:19 WBC 19.5 H RBC Hgb Hct MCV MCH RDW Plt Count Lymph % (Auto) [place] % (Auto) Eos % (Auto) Baso % (Auto) Lymph # Baso # Seg Neutrophils % Lymphocytes % (Manual) 7.0 L Monocytes % (Manual) Nucleated RBC % Seg Neutrophils # Seg Neutrophils # Man 12.7 H Monocytes # (Manual) 1.4 H PT INR Activated Clotting Time POC ABG pH POC ABG pCO2 28.2 L POC ABG pO2 108 H Sodium Potassium Chloride 108.9 H Carbon Dioxide 15 L BUN 25 H Creatinine Glucose 158 H POC Glucose Calcium 8.1 L Magnesium Direct Bilirubin AST ALT Alkaline Phosphatase Total Creatine Kinase 7963 H CK-MB (CK-2) > 300.0 H CK-MB (CK-2) Rel Index Troponin T 6.850 H* C-Reactive Protein Total Protein Albumin Triglycerides Ur Specific Gilliam Urine WBC (Auto) Miscellaneous Test 03/30/17 03/30/17 03/31/17 09:45 16:04 02:19 WBC RBC Hgb Hct MCV MCH RDW Plt Count Lymph % (Auto) [place] % (Auto) Eos % (Auto) Baso % (Auto) Lymph # Baso # Seg Neutrophils % Lymphocytes % (Manual) Monocytes % (Manual) Nucleated RBC % Seg Neutrophils # Seg Neutrophils # Man Monocytes # (Manual) PT INR Activated Clotting Time POC ABG pH POC ABG pCO2 POC ABG pO2 Sodium Potassium Chloride Carbon Dioxide BUN Creatinine Glucose POC Glucose 137 H Calcium Magnesium Direct Bilirubin AST ALT Alkaline Phosphatase Total Creatine Kinase CK-MB (CK-2) CK-MB (CK-2) Rel Index Troponin T C-Reactive Protein 21.80 H Total Protein Albumin Triglycerides Ur Specific Gilliam 1.031 H Urine WBC (Auto) Miscellaneous Test 03/31/17 03/31/17 03/31/17 03:57 06:54 09:22 WBC RBC Hgb Hct MCV MCH RDW Plt Count Lymph % (Auto) [place] % (Auto) Eos % (Auto) Baso % (Auto) Lymph # Baso # Seg Neutrophils % Lymphocytes % (Manual) Monocytes % (Manual) Nucleated RBC % Seg Neutrophils # Seg Neutrophils # Man Monocytes # (Manual) PT INR Activated Clotting Time POC ABG pH 7.475 H POC ABG pCO2 25.4 L POC ABG pO2 62 L Sodium Potassium Chloride Carbon Dioxide 19 L BUN 22 H Creatinine 0.6 L Glucose 148 H POC Glucose 143 H Calcium 8.3 L Magnesium Direct Bilirubin AST ALT Alkaline Phosphatase Total Creatine Kinase CK-MB (CK-2) CK-MB (CK-2) Rel Index Troponin T C-Reactive Protein Total Protein Albumin Triglycerides Ur Specific Gilliam Urine WBC (Auto) Miscellaneous Test 03/31/17 03/31/17 03/31/17 11:40 17:47 23:38 WBC RBC Hgb Hct MCV MCH RDW Plt Count Lymph % (Auto) [place] % (Auto) Eos % (Auto) Baso % (Auto) Lymph # Baso # Seg Neutrophils % Lymphocytes % (Manual) Monocytes % (Manual) Nucleated RBC % Seg Neutrophils # Seg Neutrophils # Man Monocytes # (Manual) PT INR Activated Clotting Time POC ABG pH POC ABG pCO2 POC ABG pO2 Sodium Potassium Chloride Carbon Dioxide BUN Creatinine Glucose POC Glucose 127 H 137 H 148 H Calcium Magnesium Direct Bilirubin AST ALT Alkaline Phosphatase Total Creatine Kinase CK-MB (CK-2) CK-MB (CK-2) Rel Index Troponin T C-Reactive Protein Total Protein Albumin Triglycerides Ur Specific G[place]am Urine WBC (Auto) Miscellaneous Test 04/01/17 04/01/17 04/01/17 04:29 05:01 11:54 WBC RBC Hgb Hct MCV MCH RDW Plt Count Lymph % (Auto) [place] % (Auto) Eos % (Auto) Baso % (Auto) Lymph # Baso # Seg Neutrophils % Lymphocytes % (Manual) Monocytes % (Manual) Nucleated RBC % Seg Neutrophils # Seg Neutrophils # Man Monocytes # (Manual) PT INR Activated Clotting Time POC ABG pH 7.513 H POC ABG pCO2 22.1 L POC ABG pO2 64 L Sodium Potassium Chloride Carbon Dioxide BUN Creatinine Glucose POC Glucose 121 H Calcium Magnesium Direct Bilirubin AST ALT Alkaline Phosphatase Total Creatine Kinase CK-MB (CK-2) CK-MB (CK-2) Rel Index Troponin T C-Reactive Protein Total Protein Albumin Triglycerides 151 H Ur Specific Gilliam Urine WBC (Auto) Miscellaneous Test 04/01/17 04/02/17 04/02/17 18:17 00:11 04:52 WBC RBC Hgb Hct MCV MCH RDW Plt Count Lymph % (Auto) [place] % (Auto) Eos % (Auto) Baso % (Auto) Lymph # Baso # Seg Neutrophils % Lymphocytes % (Manual) Monocytes % (Manual) Nucleated RBC % Seg Neutrophils # Seg Neutrophils # Man Monocytes # (Manual) PT INR Activated Clotting Time POC ABG pH 7.524 H POC ABG pCO2 25.5 L POC ABG pO2 66 L Sodium Potassium Chloride Carbon Dioxide BUN Creatinine Glucose POC Glucose 117 H 122 H Calcium Magnesium Direct Bilirubin AST ALT Alkaline Phosphatase Total Creatine Kinase CK-MB (CK-2) CK-MB (CK-2) Rel Index Troponin T C-Reactive Protein Total Protein Albumin Triglycerides Ur Specific G[place]am Urine WBC (Auto) Miscellaneous Test 04/02/17 04/02/17 04/02/17 05:18 10:41 12:19 WBC RBC Hgb Hct MCV MCH RDW Plt Count Lymph % (Auto) [place] % (Auto) Eos % (Auto) Baso % (Auto) Lymph # Baso # Seg Neutrophils % Lymphocytes % (Manual) Monocytes % (Manual) Nucleated RBC % Seg Neutrophils # Seg Neutrophils # Man Monocytes # (Manual) PT INR Activated Clotting Time POC ABG pH 7.534 H POC ABG pCO2 27.4 L POC ABG pO2 Sodium Potassium Chloride Carbon Dioxide BUN Creatinine Glucose POC Glucose 132 H 129 H Calcium Magnesium Direct Bilirubin AST ALT Alkaline Phosphatase Total Creatine Kinase CK-MB (CK-2) CK-MB (CK-2) Rel Index Troponin T C-Reactive Protein Total Protein Albumin Triglycerides Ur Specific [place] Urine WBC (Auto) Miscellaneous Test 04/02/17 04/03/17 04/03/17 18:05 00:08 05:09 WBC RBC Hgb Hct MCV MCH RDW Plt Count Lymph % (Auto) [place] % (Auto) Eos % (Auto) Baso % (Auto) Lymph # Baso # Seg Neutrophils % Lymphocytes % (Manual) Monocytes % (Manual) Nucleated RBC % Seg Neutrophils # Seg Neutrophils # Man Monocytes # (Manual) PT INR Activated Clotting Time POC ABG pH 7.455 H POC ABG pCO2 33.2 L POC ABG pO2 120 H Sodium Potassium Chloride Carbon Dioxide BUN Creatinine Glucose POC Glucose 136 H 128 H Calcium Magnesium Direct Bilirubin AST ALT Alkaline Phosphatase Total Creatine Kinase CK-MB (CK-2) CK-MB (CK-2) Rel Index Troponin T C-Reactive Protein Total Protein Albumin Triglycerides Ur Specific Gilli[place] Urine WBC (Auto) Miscellaneous Test 04/03/17 04/03/17 04/03/17 06:32 11:54 12:16 WBC 11.9 H RBC Hgb Hct MCV MCH RDW Plt Count 125 L Lymph % (Auto) 4.8 L [place] % (Auto) Eos % (Auto) Baso % (Auto) Lymph # 0.6 L Baso # Seg Neutrophils % 86.7 H Lymphocytes % (Manual) Monocytes % (Manual) Nucleated RBC % Seg Neutrophils # 10.3 H Seg Neutrophils # Man Monocytes # (Manual) PT INR Activated Clotting Time POC ABG pH POC ABG pCO2 POC ABG pO2 Sodium Potassium Chloride Carbon Dioxide BUN Creatinine Glucose POC Glucose 138 H 143 H Calcium Magnesium Direct Bilirubin AST ALT Alkaline Phosphatase Total Creatine Kinase CK-MB (CK-2) CK-MB (CK-2) Rel Index Troponin T C-Reactive Protein Total Protein Albumin Triglycerides Ur Specific [place] Urine WBC (Auto) Miscellaneous Test 04/03/17 04/03/17 04/04/17 17:33 23:59 04:34 WBC RBC Hgb Hct MCV MCH RDW Plt Count Lymph % (Auto) [place] % (Auto) Eos % (Auto) Baso % (Auto) Lymph # Baso # Seg Neutrophils % Lymphocytes % (Manual) Monocytes % (Manual) Nucleated RBC % Seg Neutrophils # Seg Neutrophils # Man Monocytes # (Manual) PT INR Activated Clotting Time POC ABG pH 7.457 H POC ABG pCO2 29.8 L POC ABG pO2 76 L Sodium Potassium Chloride Carbon Dioxide BUN Creatinine Glucose POC Glucose 130 H 155 H Calcium Magnesium Direct Bilirubin AST ALT Alkaline Phosphatase Total Creatine Kinase CK-MB (CK-2) CK-MB (CK-2) Rel Index Troponin T C-Reactive Protein Total Protein Albumin Triglycerides Ur Specific Gilli[place] Urine WBC (Auto) Miscellaneous Test 04/04/17 04/04/17 04/04/17 05:27 12:22 18:18 WBC RBC Hgb Hct MCV MCH RDW Plt Count Lymph % (Auto) [place] % (Auto) Eos % (Auto) Baso % (Auto) Lymph # Baso # Seg Neutrophils % Lymphocytes % (Manual) Monocytes % (Manual) Nucleated RBC % Seg Neutrophils # Seg Neutrophils # Man Monocytes # (Manual) PT INR Activated Clotting Time POC ABG pH POC ABG pCO2 POC ABG pO2 Sodium Potassium Chloride Carbon Dioxide BUN Creatinine Glucose POC Glucose 164 H 146 H 130 H Calcium Magnesium Direct Bilirubin AST ALT Alkaline Phosphatase Total Creatine Kinase CK-MB (CK-2) CK-MB (CK-2) Rel Index Troponin T C-Reactive Protein Total Protein Albumin Triglycerides Ur Specific Gilli[place] Urine WBC (Auto) Miscellaneous Test 04/05/17 04/05/17 04/05/17 04:43 05:28 11:36 WBC RBC Hgb Hct MCV MCH RDW Plt Count Lymph % (Auto) [place] % (Auto) Eos % (Auto) Baso % (Auto) Lymph # Baso # Seg Neutrophils % Lymphocytes % (Manual) Monocytes % (Manual) Nucleated RBC % Seg Neutrophils # Seg Neutrophils # Man Monocytes # (Manual) PT INR Activated Clotting Time POC ABG pH 7.479 H POC ABG pCO2 33.5 L POC ABG pO2 76 L Sodium Potassium Chloride Carbon Dioxide BUN Creatinine Glucose POC Glucose 145 H 136 H Calcium Magnesium Direct Bilirubin AST ALT Alkaline Phosphatase Total Creatine Kinase CK-MB (CK-2) CK-MB (CK-2) Rel Index Troponin T C-Reactive Protein Total Protein Albumin Triglycerides Ur Specific Gilli[place] Urine WBC (Auto) Miscellaneous Test 04/05/17 04/06/17 04/06/17 17:58 00:16 05:26 WBC RBC Hgb Hct MCV MCH RDW Plt Count Lymph % (Auto) [place] % (Auto) Eos % (Auto) Baso % (Auto) Lymph # Baso # Seg Neutrophils % Lymphocytes % (Manual) Monocytes % (Manual) Nucleated RBC % Seg Neutrophils # Seg Neutrophils # Man Monocytes # (Manual) PT INR Activated Clotting Time POC ABG pH POC ABG pCO2 POC ABG pO2 Sodium Potassium Chloride Carbon Dioxide BUN Creatinine Glucose POC Glucose 130 H 159 H 146 H Calcium Magnesium Direct Bilirubin AST ALT Alkaline Phosphatase Total Creatine Kinase CK-MB (CK-2) CK-MB (CK-2) Rel Index Troponin T C-Reactive Protein Total Protein Albumin Triglycerides Ur Specific [place]illi[place] Urine WBC (Auto) Miscellaneous Test 04/06/17 04/06/17 04/07/17 13:11 16:54 11:45 WBC RBC Hgb Hct MCV MCH RDW Plt Count Lymph % (Auto) [place] % (Auto) Eos % (Auto) Baso % (Auto) Lymph # Baso # Seg Neutrophils % Lymphocytes % (Manual) Monocytes % (Manual) Nucleated RBC % Seg Neutrophils # Seg Neutrophils # Man Monocytes # (Manual) PT INR Activated Clotting Time POC ABG pH 7.517 H POC ABG pCO2 32.1 L POC ABG pO2 Sodium Potassium Chloride Carbon Dioxide BUN Creatinine Glucose POC Glucose 132 H 123 H Calcium Magnesium Direct Bilirubin AST ALT Alkaline Phosphatase Total Creatine Kinase CK-MB (CK-2) CK-MB (CK-2) Rel Index Troponin T C-Reactive Protein Total Protein Albumin Triglycerides Ur Specific [place] Urine WBC (Auto) Miscellaneous Test 04/07/17 04/07/17 04/07/17 12:51 17:40 23:55 WBC RBC Hgb Hct MCV MCH RDW Plt Count Lymph % (Auto) [place] % (Auto) Eos % (Auto) Baso % (Auto) Lymph # Baso # Seg Neutrophils % Lymphocytes % (Manual) Monocytes % (Manual) Nucleated RBC % Seg Neutrophils # Seg Neutrophils # Man Monocytes # (Manual) PT INR Activated Clotting Time POC ABG pH POC ABG pCO2 POC ABG pO2 Sodium Potassium Chloride Carbon Dioxide BUN Creatinine Glucose POC Glucose 138 H 154 H 143 H Calcium Magnesium Direct Bilirubin AST ALT Alkaline Phosphatase Total Creatine Kinase CK-MB (CK-2) CK-MB (CK-2) Rel Index Troponin T C-Reactive Protein Total Protein Albumin Triglycerides Ur Specific [place]illi[place] Urine WBC (Auto) Miscellaneous Test 04/08/17 04/08/17 04/08/17 05:27 11:14 17:44 WBC RBC Hgb Hct MCV MCH RDW Plt Count Lymph % (Auto) [place] % (Auto) Eos % (Auto) Baso % (Auto) Lymph # Baso # Seg Neutrophils % Lymphocytes % (Manual) Monocytes % (Manual) Nucleated RBC % Seg Neutrophils # Seg Neutrophils # Man Monocytes # (Manual) PT INR Activated Clotting Time POC ABG pH POC ABG pCO2 POC ABG pO2 Sodium Potassium Chloride Carbon Dioxide BUN Creatinine Glucose POC Glucose 142 H 153 H 129 H Calcium Magnesium Direct Bilirubin AST ALT Alkaline Phosphatase Total Creatine Kinase CK-MB (CK-2) CK-MB (CK-2) Rel Index Troponin T C-Reactive Protein Total Protein Albumin Triglycerides Ur Specific [place] Urine WBC (Auto) Miscellaneous Test 04/09/17 04/09/17 04/09/17 08:20 11:21 17:37 WBC RBC Hgb Hct MCV MCH RDW Plt Count Lymph % (Auto) [place] % (Auto) Eos % (Auto) Baso % (Auto) Lymph # Baso # Seg Neutrophils % Lymphocytes % (Manual) Monocytes % (Manual) Nucleated RBC % Seg Neutrophils # Seg Neutrophils # Man Monocytes # (Manual) PT INR Activated Clotting Time POC ABG pH POC ABG pCO2 POC ABG pO2 Sodium 147 H Potassium Chloride 108.8 H Carbon Dioxide BUN 39 H Creatinine 0.5 L Glucose 138 H POC Glucose 152 H 109 H Calcium Magnesium Direct Bilirubin AST ALT Alkaline Phosphatase Total Creatine Kinase CK-MB (CK-2) CK-MB (CK-2) Rel Index Troponin T C-Reactive Protein Total Protein Albumin Triglycerides Ur Specific [place] Urine WBC (Auto) Miscellaneous Test 04/10/17 04/10/17 04/10/17 00:13 04:16 04:16 WBC RBC Hgb 11.5 L Hct MCV 96 H MCH RDW Plt Count 103 L Lymph % (Auto) 11.1 L [place] % (Auto) Eos % (Auto) Baso % (Auto) Lymph # Baso # Seg Neutrophils % 81.5 H Lymphocytes % (Manual) Monocytes % (Manual) Nucleated RBC % Seg Neutrophils # 8.8 H Seg Neutrophils # Man Monocytes # (Manual) PT INR Activated Clotting Time POC ABG pH POC ABG pCO2 POC ABG pO2 Sodium 148 H Potassium Chloride 109.0 H Carbon Dioxide BUN 36 H Creatinine 0.5 L Glucose 131 H POC Glucose 127 H Calcium 8.1 L Magnesium 2.40 H Direct Bilirubin AST 206 H ALT 228 H Alkaline Phosphatase 178 H Total Creatine Kinase CK-MB (CK-2) CK-MB (CK-2) Rel Index Troponin T C-Reactive Protein Total Protein Albumin 2.8 L Triglycerides Ur Specific Gilliam Urine WBC (Auto) Miscellaneous Test 04/10/17 04/10/17 04/10/17 06:01 11:57 18:27 WBC RBC Hgb Hct MCV MCH RDW Plt Count Lymph % (Auto) [place] % (Auto) Eos % (Auto) Baso % (Auto) Lymph # Baso # Seg Neutrophils % Lymphocytes % (Manual) Monocytes % (Manual) Nucleated RBC % Seg Neutrophils # Seg Neutrophils # Man Monocytes # (Manual) PT INR Activated Clotting Time POC ABG pH POC ABG pCO2 POC ABG pO2 Sodium Potassium Chloride Carbon Dioxide BUN Creatinine Glucose POC Glucose 108 H 154 H 130 H Calcium Magnesium Direct Bilirubin AST ALT Alkaline Phosphatase Total Creatine Kinase CK-MB (CK-2) CK-MB (CK-2) Rel Index Troponin T C-Reactive Protein Total Protein Albumin Triglycerides Ur Specific G[place] Urine WBC (Auto) Miscellaneous Test 04/11/17 04/11/17 04/12/17 12:25 17:10 00:22 WBC RBC Hgb Hct MCV MCH RDW Plt Count Lymph % (Auto) [place] % (Auto) Eos % (Auto) Baso % (Auto) Lymph # Baso # Seg Neutrophils % Lymphocytes % (Manual) Monocytes % (Manual) Nucleated RBC % Seg Neutrophils # Seg Neutrophils # Man Monocytes # (Manual) PT INR Activated Clotting Time POC ABG pH POC ABG pCO2 POC ABG pO2 Sodium Potassium Chloride Carbon Dioxide BUN Creatinine Glucose POC Glucose 107 H 129 H 128 H Calcium Magnesium Direct Bilirubin AST ALT Alkaline Phosphatase Total Creatine Kinase CK-MB (CK-2) CK-MB (CK-2) Rel Index Troponin T C-Reactive Protein Total Protein Albumin Triglycerides Ur Specific [place] Urine WBC (Auto) Miscellaneous Test 04/12/17 04/12/17 04/12/17 05:00 11:57 17:47 WBC RBC Hgb Hct MCV MCH RDW Plt Count Lymph % (Auto) [place] % (Auto) Eos % (Auto) Baso % (Auto) Lymph # Baso # Seg Neutrophils % Lymphocytes % (Manual) Monocytes % (Manual) Nucleated RBC % Seg Neutrophils # Seg Neutrophils # Man Monocytes # (Manual) PT INR Activated Clotting Time POC ABG pH POC ABG pCO2 POC ABG pO2 Sodium Potassium Chloride Carbon Dioxide BUN Creatinine Glucose POC Glucose 140 H 142 H Calcium Magnesium Direct Bilirubin AST 158 H ALT 184 H Alkaline Phosphatase 170 H Total Creatine Kinase CK-MB (CK-2) CK-MB (CK-2) Rel Index Troponin T C-Reactive Protein Total Protein Albumin 2.8 L Triglycerides Ur Specific Gilliam Urine WBC (Auto) Miscellaneous Test 04/12/17 04/12/17 04/13/17 21:36 21:36 01:37 WBC RBC Hgb Hct MCV MCH RDW Plt Count Lymph % (Auto) [place] % (Auto) Eos % (Auto) Baso % (Auto) Lymph # Baso # Seg Neutrophils % Lymphocytes % (Manual) Monocytes % (Manual) Nucleated RBC % Seg Neutrophils # Seg Neutrophils # Man Monocytes # (Manual) PT INR Activated Clotting Time POC ABG pH POC ABG pCO2 POC ABG pO2 Sodium Potassium Chloride Carbon Dioxide BUN Creatinine Glucose POC Glucose 126 H Calcium Magnesium Direct Bilirubin AST ALT Alkaline Phosphatase Total Creatine Kinase 1404 H CK-MB (CK-2) 8.0 H CK-MB (CK-2) Rel Index Troponin T 0.767 H* C-Reactive Protein Total Protein Albumin Triglycerides Ur Specific Gilliam Urine WBC (Auto) Miscellaneous Test 04/13/17 04/13/17 04/13/17 04:45 04:52 12:17 WBC RBC Hgb Hct MCV MCH RDW Plt Count Lymph % (Auto) [place] % (Auto) Eos % (Auto) Baso % (Auto) Lymph # Baso # Seg Neutrophils % Lymphocytes % (Manual) Monocytes % (Manual) Nucleated RBC % Seg Neutrophils # Seg Neutrophils # Man Monocytes # (Manual) PT INR Activated Clotting Time POC ABG pH POC ABG pCO2 POC ABG pO2 Sodium 148 H Potassium Chloride 112.8 H Carbon Dioxide BUN 33 H Creatinine 0.4 L Glucose 121 H POC Glucose 126 H 149 H Calcium Magnesium Direct Bilirubin AST 160 H ALT 189 H Alkaline Phosphatase 166 H Total Creatine Kinase CK-MB (CK-2) CK-MB (CK-2) Rel Index Troponin T C-Reactive Protein Total Protein Albumin 2.6 L Triglycerides Ur Specific Gilliam Urine WBC (Auto) Miscellaneous Test 04/13/17 04/14/17 04/14/17 17:45 00:20 00:45 WBC RBC Hgb Hct MCV MCH RDW Plt Count Lymph % (Auto) [place] % (Auto) Eos % (Auto) Baso % (Auto) Lymph # Baso # Seg Neutrophils % Lymphocytes % (Manual) Monocytes % (Manual) Nucleated RBC % Seg Neutrophils # Seg Neutrophils # Man Monocytes # (Manual) PT INR Activated Clotting Time POC ABG pH POC ABG pCO2 POC ABG pO2 Sodium Potassium Chloride Carbon Dioxide BUN Creatinine Glucose POC Glucose 130 H 144 H 144 H Calcium Magnesium Direct Bilirubin AST ALT Alkaline Phosphatase Total Creatine Kinase CK-MB (CK-2) CK-MB (CK-2) Rel Index Troponin T C-Reactive Protein Total Protein Albumin Triglycerides Ur Specific [place] Urine WBC (Auto) Miscellaneous Test 04/14/17 04/14/17 04/14/17 05:40 11:06 11:31 WBC RBC Hgb Hct MCV MCH RDW Plt Count Lymph % (Auto) [place] % (Auto) Eos % (Auto) Baso % (Auto) Lymph # Baso # Seg Neutrophils % Lymphocytes % (Manual) Monocytes % (Manual) Nucleated RBC % Seg Neutrophils # Seg Neutrophils # Man Monocytes # (Manual) PT INR Activated Clotting Time POC ABG pH POC ABG pCO2 POC ABG pO2 Sodium Potassium Chloride Carbon Dioxide BUN Creatinine Glucose POC Glucose 139 H 123 H Calcium Magnesium Direct Bilirubin AST ALT Alkaline Phosphatase Total Creatine Kinase CK-MB (CK-2) CK-MB (CK-2) Rel Index Troponin T C-Reactive Protein Total Protein Albumin Triglycerides Ur Specific G[place]am 1.033 H Urine WBC (Auto) > 182.0 H Miscellaneous Test 04/14/17 04/14/17 04/15/17 18:00 23:52 05:15 WBC 12.5 H RBC 3.38 L Hgb 10.6 L Hct 32.7 L MCV 97 H MCH RDW Plt Count 107 L Lymph % (Auto) 8.7 L [place] % (Auto) Eos % (Auto) Baso % (Auto) Lymph # 1.1 L Baso # Seg Neutrophils % 86.1 H Lymphocytes % (Manual) Monocytes % (Manual) Nucleated RBC % Seg Neutrophils # 10.7 H Seg Neutrophils # Man Monocytes # (Manual) PT INR Activated Clotting Time POC ABG pH POC ABG pCO2 POC ABG pO2 Sodium Potassium Chloride Carbon Dioxide BUN Creatinine Glucose POC Glucose 133 H 133 H Calcium Magnesium Direct Bilirubin AST ALT Alkaline Phosphatase Total Creatine Kinase CK-MB (CK-2) CK-MB (CK-2) Rel Index Troponin T C-Reactive Protein Total Protein Albumin Triglycerides Ur Specific [place] Urine WBC (Auto) Miscellaneous Test 04/15/17 04/15/17 04/15/17 05:15 05:25 11:50 WBC RBC Hgb Hct MCV MCH RDW Plt Count Lymph % (Auto) [place] % (Auto) Eos % (Auto) Baso % (Auto) Lymph # Baso # Seg Neutrophils % Lymphocytes % (Manual) Monocytes % (Manual) Nucleated RBC % Seg Neutrophils # Seg Neutrophils # Man Monocytes # (Manual) PT INR Activated Clotting Time POC ABG pH POC ABG pCO2 POC ABG pO2 Sodium 149 H Potassium 3.5 L Chloride 114.1 H Carbon Dioxide 21 L BUN 29 H Creatinine 0.4 L Glucose 128 H POC Glucose 133 H 107 H Calcium 8.3 L Magnesium Direct Bilirubin 0.4 H AST 149 H ALT 182 H Alkaline Phosphatase 143 H Total Creatine Kinase CK-MB (CK-2) CK-MB (CK-2) Rel Index Troponin T C-Reactive Protein Total Protein Albumin 2.5 L Triglycerides Ur Specific [place] Urine WBC (Auto) Miscellaneous Test 04/15/17 04/16/17 04/16/17 16:55 00:02 03:17 WBC RBC 3.39 L Hgb 10.5 L Hct 32.4 L MCV 96 H MCH RDW Plt Count 106 L Lymph % (Auto) 6.7 L [place] % (Auto) Eos % (Auto) Baso % (Auto) Lymph # 0.6 L Baso # Seg Neutrophils % 86.8 H Lymphocytes % (Manual) Monocytes % (Manual) Nucleated RBC % Seg Neutrophils # 8.2 H Seg Neutrophils # Man Monocytes # (Manual) PT INR Activated Clotting Time POC ABG pH POC ABG pCO2 POC ABG pO2 Sodium Potassium Chloride Carbon Dioxide BUN Creatinine Glucose POC Glucose 146 H 148 H Calcium Magnesium Direct Bilirubin AST ALT Alkaline Phosphatase Total Creatine Kinase CK-MB (CK-2) CK-MB (CK-2) Rel Index Troponin T C-Reactive Protein Total Protein Albumin Triglycerides Ur Specific [place] Urine WBC (Auto) Miscellaneous Test 04/16/17 04/16/17 04/16/17 03:17 05:19 11:13 WBC RBC Hgb Hct MCV MCH RDW Plt Count Lymph % (Auto) [place] % (Auto) Eos % (Auto) Baso % (Auto) Lymph # Baso # Seg Neutrophils % Lymphocytes % (Manual) Monocytes % (Manual) Nucleated RBC % Seg Neutrophils # Seg Neutrophils # Man Monocytes # (Manual) PT INR Activated Clotting Time POC ABG pH POC ABG pCO2 POC ABG pO2 Sodium 149 H Potassium Chloride 111.1 H Carbon Dioxide 20 L BUN 27 H Creatinine 0.3 L Glucose 156 H POC Glucose 171 H 169 H Calcium 8.3 L Magnesium Direct Bilirubin AST ALT Alkaline Phosphatase Total Creatine Kinase CK-MB (CK-2) CK-MB (CK-2) Rel Index Troponin T C-Reactive Protein Total Protein Albumin Triglycerides Ur Specific [place] Urine WBC (Auto) Miscellaneous Test 04/16/17 04/17/17 04/17/17 17:03 00:00 05:09 WBC RBC Hgb Hct MCV MCH RDW Plt Count Lymph % (Auto) [place] % (Auto) Eos % (Auto) Baso % (Auto) Lymph # Baso # Seg Neutrophils % Lymphocytes % (Manual) Monocytes % (Manual) Nucleated RBC % Seg Neutrophils # Seg Neutrophils # Man Monocytes # (Manual) PT INR Activated Clotting Time POC ABG pH POC ABG pCO2 POC ABG pO2 Sodium Potassium Chloride Carbon Dioxide BUN Creatinine Glucose POC Glucose 151 H 165 H 145 H Calcium Magnesium Direct Bilirubin AST ALT Alkaline Phosphatase Total Creatine Kinase CK-MB (CK-2) CK-MB (CK-2) Rel Index Troponin T C-Reactive Protein Total Protein Albumin Triglycerides Ur Specific [place] Urine WBC (Auto) Miscellaneous Test 04/17/17 04/17/17 04/18/17 11:38 17:47 00:01 WBC RBC Hgb Hct MCV MCH RDW Plt Count Lymph % (Auto) [place] % (Auto) Eos % (Auto) Baso % (Auto) Lymph # Baso # Seg Neutrophils % Lymphocytes % (Manual) Monocytes % (Manual) Nucleated RBC % Seg Neutrophils # Seg Neutrophils # Man Monocytes # (Manual) PT INR Activated Clotting Time POC ABG pH POC ABG pCO2 POC ABG pO2 Sodium Potassium Chloride Carbon Dioxide BUN Creatinine Glucose POC Glucose 170 H 161 H 131 H Calcium Magnesium Direct Bilirubin AST ALT Alkaline Phosphatase Total Creatine Kinase CK-MB (CK-2) CK-MB (CK-2) Rel Index Troponin T C-Reactive Protein Total Protein Albumin Triglycerides Ur Specific [place] Urine WBC (Auto) Miscellaneous Test 04/18/17 04/18/17 04/18/17 03:55 03:55 05:30 WBC RBC 3.05 L Hgb 9.8 L Hct 29.0 L MCV 95 H MCH RDW Plt Count 113 L Lymph % (Auto) [place] % (Auto) Eos % (Auto) 5.3 H Baso % (Auto) Lymph # Baso # Seg Neutrophils % 71.5 H Lymphocytes % (Manual) Monocytes % (Manual) Nucleated RBC % Seg Neutrophils # Seg Neutrophils # Man Monocytes # (Manual) PT INR Activated Clotting Time POC ABG pH 7.460 H POC ABG pCO2 30.8 L POC ABG pO2 129 H Sodium Potassium Chloride Carbon Dioxide 21 L BUN 25 H Creatinine 0.4 L Glucose 123 H POC Glucose Calcium 8.3 L Magnesium Direct Bilirubin AST ALT Alkaline Phosphatase Total Creatine Kinase CK-MB (CK-2) CK-MB (CK-2) Rel Index Troponin T C-Reactive Protein Total Protein Albumin Triglycerides Ur Specific [place] Urine WBC (Auto) Miscellaneous Test 04/18/17 04/18/17 04/19/17 17:10 23:40 04:36 WBC RBC 3.21 L Hgb 10.2 L Hct 30.4 L MCV 95 H MCH RDW Plt Count 131 L Lymph % (Auto) 12.1 L [place] % (Auto) Eos % (Auto) 4.7 H Baso % (Auto) 2.4 H Lymph # 0.9 L Baso # 0.2 H Seg Neutrophils % 75.0 H Lymphocytes % (Manual) Monocytes % (Manual) Nucleated RBC % Seg Neutrophils # Seg Neutrophils # Man Monocytes # (Manual) PT INR Activated Clotting Time POC ABG pH POC ABG pCO2 POC ABG pO2 Sodium Potassium Chloride Carbon Dioxide BUN Creatinine Glucose POC Glucose 135 H 157 H Calcium Magnesium Direct Bilirubin AST ALT Alkaline Phosphatase Total Creatine Kinase CK-MB (CK-2) CK-MB (CK-2) Rel Index Troponin T C-Reactive Protein Total Protein Albumin Triglycerides Ur Specific [place] Urine WBC (Auto) Miscellaneous Test 04/19/17 04/19/17 04/19/17 04:36 05:12 06:50 WBC RBC Hgb Hct MCV MCH RDW Plt Count Lymph % (Auto) [place] % (Auto) Eos % (Auto) Baso % (Auto) Lymph # Baso # Seg Neutrophils % Lymphocytes % (Manual) Monocytes % (Manual) Nucleated RBC % Seg Neutrophils # Seg Neutrophils # Man Monocytes # (Manual) PT INR Activated Clotting Time POC ABG pH 7.516 H POC ABG pCO2 28.0 L POC ABG pO2 Sodium Potassium Chloride Carbon Dioxide 21 L BUN 23 H Creatinine 0.2 L Glucose 137 H POC Glucose 131 H Calcium 7.9 L Magnesium Direct Bilirubin AST ALT Alkaline Phosphatase Total Creatine Kinase CK-MB (CK-2) CK-MB (CK-2) Rel Index Troponin T C-Reactive Protein Total Protein Albumin Triglycerides Ur Specific [place] Urine WBC (Auto) Miscellaneous Test 04/19/17 04/19/17 04/20/17 12:36 17:42 00:12 WBC RBC Hgb Hct MCV MCH RDW Plt Count Lymph % (Auto) [place] % (Auto) Eos % (Auto) Baso % (Auto) Lymph # Baso # Seg Neutrophils % Lymphocytes % (Manual) Monocytes % (Manual) Nucleated RBC % Seg Neutrophils # Seg Neutrophils # Man Monocytes # (Manual) PT INR Activated Clotting Time POC ABG pH POC ABG pCO2 POC ABG pO2 Sodium Potassium Chloride Carbon Dioxide BUN Creatinine Glucose POC Glucose 128 H 140 H 132 H Calcium Magnesium Direct Bilirubin AST ALT Alkaline Phosphatase Total Creatine Kinase CK-MB (CK-2) CK-MB (CK-2) Rel Index Troponin T C-Reactive Protein Total Protein Albumin Triglycerides Ur Specific [place] Urine WBC (Auto) Miscellaneous Test 04/20/17 04/20/17 04/20/17 03:35 03:35 05:10 WBC RBC 3.34 L Hgb 10.4 L Hct 31.6 L MCV 95 H MCH RDW Plt Count Lymph % (Auto) 12.9 L [place] % (Auto) Eos % (Auto) Baso % (Auto) Lymph # Baso # Seg Neutrophils % 77.3 H Lymphocytes % (Manual) Monocytes % (Manual) Nucleated RBC % Seg Neutrophils # Seg Neutrophils # Man Monocytes # (Manual) PT INR Activated Clotting Time POC ABG pH POC ABG pCO2 POC ABG pO2 Sodium Potassium Chloride Carbon Dioxide BUN Creatinine 0.3 L Glucose 155 H POC Glucose 135 H Calcium 7.8 L Magnesium Direct Bilirubin AST ALT Alkaline Phosphatase Total Creatine Kinase CK-MB (CK-2) CK-MB (CK-2) Rel Index Troponin T C-Reactive Protein Total Protein Albumin Triglycerides Ur Specific [place] Urine WBC (Auto) Miscellaneous Test 04/20/17 04/20/17 04/21/17 12:49 18:21 00:05 WBC RBC Hgb Hct MCV MCH RDW Plt Count Lymph % (Auto) [place] % (Auto) Eos % (Auto) Baso % (Auto) Lymph # Baso # Seg Neutrophils % Lymphocytes % (Manual) Monocytes % (Manual) Nucleated RBC % Seg Neutrophils # Seg Neutrophils # Man Monocytes # (Manual) PT INR Activated Clotting Time POC ABG pH POC ABG pCO2 POC ABG pO2 Sodium Potassium Chloride Carbon Dioxide BUN Creatinine Glucose POC Glucose 155 H 165 H 141 H Calcium Magnesium Direct Bilirubin AST ALT Alkaline Phosphatase Total Creatine Kinase CK-MB (CK-2) CK-MB (CK-2) Rel Index Troponin T C-Reactive Protein Total Protein Albumin Triglycerides Ur Specific [place] Urine WBC (Auto) Miscellaneous Test 04/21/17 04/21/17 04/21/17 06:00 12:11 17:04 WBC RBC Hgb Hct MCV MCH RDW Plt Count Lymph % (Auto) [place] % (Auto) Eos % (Auto) Baso % (Auto) Lymph # Baso # Seg Neutrophils % Lymphocytes % (Manual) Monocytes % (Manual) Nucleated RBC % Seg Neutrophils # Seg Neutrophils # Man Monocytes # (Manual) PT INR Activated Clotting Time POC ABG pH POC ABG pCO2 POC ABG pO2 Sodium Potassium Chloride Carbon Dioxide BUN Creatinine Glucose POC Glucose 152 H 165 H 156 H Calcium Magnesium Direct Bilirubin AST ALT Alkaline Phosphatase Total Creatine Kinase CK-MB (CK-2) CK-MB (CK-2) Rel Index Troponin T C-Reactive Protein Total Protein Albumin Triglycerides Ur Specific [place] Urine WBC (Auto) Miscellaneous Test 04/21/17 04/21/17 04/22/17 22:00 23:59 05:49 WBC RBC Hgb Hct MCV MCH RDW Plt Count Lymph % (Auto) [place] % (Auto) Eos % (Auto) Baso % (Auto) Lymph # Baso # Seg Neutrophils % Lymphocytes % (Manual) Monocytes % (Manual) Nucleated RBC % Seg Neutrophils # Seg Neutrophils # Man Monocytes # (Manual) PT INR Activated Clotting Time POC ABG pH POC ABG pCO2 POC ABG pO2 Sodium Potassium Chloride Carbon Dioxide BUN Creatinine Glucose POC Glucose 166 H 173 H Calcium Magnesium Direct Bilirubin AST ALT Alkaline Phosphatase Total Creatine Kinase CK-MB (CK-2) CK-MB (CK-2) Rel Index Troponin T C-Reactive Protein Total Protein Albumin Triglycerides Ur Specific [place] Urine WBC (Auto) 10.0 H Miscellaneous Test 04/22/17 04/22/17 04/23/17 11:11 18:04 00:37 WBC RBC Hgb Hct MCV MCH RDW Plt Count Lymph % (Auto) [place] % (Auto) Eos % (Auto) Baso % (Auto) Lymph # Baso # Seg Neutrophils % Lymphocytes % (Manual) Monocytes % (Manual) Nucleated RBC % Seg Neutrophils # Seg Neutrophils # Man Monocytes # (Manual) PT INR Activated Clotting Time POC ABG pH POC ABG pCO2 POC ABG pO2 Sodium Potassium Chloride Carbon Dioxide BUN Creatinine Glucose POC Glucose 172 H 140 H 135 H Calcium Magnesium Direct Bilirubin AST ALT Alkaline Phosphatase Total Creatine Kinase CK-MB (CK-2) CK-MB (CK-2) Rel Index Troponin T C-Reactive Protein Total Protein Albumin Triglycerides Ur Specific [place] Urine WBC (Auto) Miscellaneous Test 04/23/17 04/23/17 04/23/17 05:33 06:20 11:10 WBC RBC 3.19 L Hgb 9.9 L Hct 30.0 L MCV MCH RDW Plt Count Lymph % (Auto) 8.0 L [place] % (Auto) Eos % (Auto) Baso % (Auto) Lymph # 0.8 L Baso # Seg Neutrophils % 84.5 H Lymphocytes % (Manual) Monocytes % (Manual) Nucleated RBC % Seg Neutrophils # 8.2 H Seg Neutrophils # Man Monocytes # (Manual) PT INR Activated Clotting Time POC ABG pH POC ABG pCO2 POC ABG pO2 Sodium Potassium Chloride Carbon Dioxide BUN Creatinine Glucose POC Glucose 134 H 134 H Calcium Magnesium Direct Bilirubin AST ALT Alkaline Phosphatase Total Creatine Kinase CK-MB (CK-2) CK-MB (CK-2) Rel Index Troponin T C-Reactive Protein Total Protein Albumin Triglycerides Ur Specific [place] Urine WBC (Auto) Miscellaneous Test 04/23/17 04/24/17 04/24/17 17:26 00:53 06:46 WBC RBC Hgb Hct MCV MCH RDW Plt Count Lymph % (Auto) [place] % (Auto) Eos % (Auto) Baso % (Auto) Lymph # Baso # Seg Neutrophils % Lymphocytes % (Manual) Monocytes % (Manual) Nucleated RBC % Seg Neutrophils # Seg Neutrophils # Man Monocytes # (Manual) PT INR Activated Clotting Time POC ABG pH POC ABG pCO2 POC ABG pO2 Sodium Potassium Chloride Carbon Dioxide BUN Creatinine Glucose POC Glucose 164 H 146 H 125 H Calcium Magnesium Direct Bilirubin AST ALT Alkaline Phosphatase Total Creatine Kinase CK-MB (CK-2) CK-MB (CK-2) Rel Index Troponin T C-Reactive Protein Total Protein Albumin Triglycerides Ur Specific [place] Urine WBC (Auto) Miscellaneous Test 04/24/17 04/24/17 04/24/17 11:55 17:50 23:36 WBC RBC Hgb Hct MCV MCH RDW Plt Count Lymph % (Auto) [place] % (Auto) Eos % (Auto) Baso % (Auto) Lymph # Baso # Seg Neutrophils % Lymphocytes % (Manual) Monocytes % (Manual) Nucleated RBC % Seg Neutrophils # Seg Neutrophils # Man Monocytes # (Manual) PT INR Activated Clotting Time POC ABG pH POC ABG pCO2 POC ABG pO2 Sodium Potassium Chloride Carbon Dioxide BUN Creatinine Glucose POC Glucose 156 H 146 H 131 H Calcium Magnesium Direct Bilirubin AST ALT Alkaline Phosphatase Total Creatine Kinase CK-MB (CK-2) CK-MB (CK-2) Rel Index Troponin T C-Reactive Protein Total Protein Albumin Triglycerides Ur Specific [place] Urine WBC (Auto) Miscellaneous Test 04/25/17 04/25/17 04/25/17 04:51 05:16 07:07 WBC RBC Hgb Hct MCV MCH RDW Plt Count Lymph % (Auto) [place] % (Auto) Eos % (Auto) Baso % (Auto) Lymph # Baso # Seg Neutrophils % Lymphocytes % (Manual) Monocytes % (Manual) Nucleated RBC % Seg Neutrophils # Seg Neutrophils # Man Monocytes # (Manual) PT INR Activated Clotting Time POC ABG pH POC ABG pCO2 POC ABG pO2 Sodium Potassium Chloride Carbon Dioxide BUN Creatinine Glucose POC Glucose 139 H Calcium Magnesium Direct Bilirubin AST 105 H ALT 204 H Alkaline Phosphatase 189 H Total Creatine Kinase CK-MB (CK-2) CK-MB (CK-2) Rel Index Troponin T C-Reactive Protein Total Protein Albumin 2.4 L Triglycerides Ur Specific [place] Urine WBC (Auto) Miscellaneous Test Flexitest 1 H 04/25/17 04/25/17 04/25/17 12:29 17:23 23:32 WBC RBC Hgb Hct MCV MCH RDW Plt Count Lymph % (Auto) [place] % (Auto) Eos % (Auto) Baso % (Auto) Lymph # Baso # Seg Neutrophils % Lymphocytes % (Manual) Monocytes % (Manual) Nucleated RBC % Seg Neutrophils # Seg Neutrophils # Man Monocytes # (Manual) PT INR Activated Clotting Time POC ABG pH POC ABG pCO2 POC ABG pO2 Sodium Potassium Chloride Carbon Dioxide BUN Creatinine Glucose POC Glucose 132 H 133 H 128 H Calcium Magnesium Direct Bilirubin AST ALT Alkaline Phosphatase Total Creatine Kinase CK-MB (CK-2) CK-MB (CK-2) Rel Index Troponin T C-Reactive Protein Total Protein Albumin Triglycerides Ur Specific [place] Urine WBC (Auto) Miscellaneous Test 04/26/17 04/26/17 04/26/17 05:24 11:28 17:09 WBC RBC Hgb Hct MCV MCH RDW Plt Count Lymph % (Auto) [place] % (Auto) Eos % (Auto) Baso % (Auto) Lymph # Baso # Seg Neutrophils % Lymphocytes % (Manual) Monocytes % (Manual) Nucleated RBC % Seg Neutrophils # Seg Neutrophils # Man Monocytes # (Manual) PT INR Activated Clotting Time POC ABG pH POC ABG pCO2 POC ABG pO2 Sodium Potassium Chloride Carbon Dioxide BUN Creatinine Glucose POC Glucose 132 H 146 H 141 H Calcium Magnesium Direct Bilirubin AST ALT Alkaline Phosphatase Total Creatine Kinase CK-MB (CK-2) CK-MB (CK-2) Rel Index Troponin T C-Reactive Protein Total Protein Albumin Triglycerides Ur Specific [place] Urine WBC (Auto) Miscellaneous Test 04/26/17 04/27/17 04/27/17 23:52 05:40 05:40 WBC RBC 3.22 L Hgb 10.0 L Hct 29.9 L MCV MCH RDW Plt Count Lymph % (Auto) [place] % (Auto) Eos % (Auto) Baso % (Auto) Lymph # Baso # Seg Neutrophils % 76.6 H Lymphocytes % (Manual) Monocytes % (Manual) Nucleated RBC % Seg Neutrophils # Seg Neutrophils # Man Monocytes # (Manual) PT INR Activated Clotting Time POC ABG pH POC ABG pCO2 POC ABG pO2 Sodium Potassium Chloride Carbon Dioxide BUN Creatinine Glucose POC Glucose 140 H Calcium Magnesium Direct Bilirubin AST 66 H ALT 137 H Alkaline Phosphatase 169 H Total Creatine Kinase CK-MB (CK-2) CK-MB (CK-2) Rel Index Troponin T C-Reactive Protein Total Protein 6.2 L Albumin 2.6 L Triglycerides Ur Specific [place] Urine WBC (Auto) Miscellaneous Test 04/27/17 04/27/17 04/27/17 05:40 06:10 11:13 WBC RBC Hgb Hct MCV MCH RDW Plt Count Lymph % (Auto) [place] % (Auto) Eos % (Auto) Baso % (Auto) Lymph # Baso # Seg Neutrophils % Lymphocytes % (Manual) Monocytes % (Manual) Nucleated RBC % Seg Neutrophils # Seg Neutrophils # Man Monocytes # (Manual) PT INR Activated Clotting Time POC ABG pH POC ABG pCO2 POC ABG pO2 Sodium Potassium Chloride Carbon Dioxide BUN Creatinine 0.2 L Glucose 139 H POC Glucose 130 H 151 H Calcium Magnesium Direct Bilirubin AST ALT Alkaline Phosphatase Total Creatine Kinase CK-MB (CK-2) CK-MB (CK-2) Rel Index Troponin T C-Reactive Protein Total Protein Albumin Triglycerides Ur Specific [place] Urine WBC (Auto) Miscellaneous Test 04/27/17 04/27/17 04/28/17 17:37 23:19 05:24 WBC RBC Hgb Hct MCV MCH RDW Plt Count Lymph % (Auto) [place] % (Auto) Eos % (Auto) Baso % (Auto) Lymph # Baso # Seg Neutrophils % Lymphocytes % (Manual) Monocytes % (Manual) Nucleated RBC % Seg Neutrophils # Seg Neutrophils # Man Monocytes # (Manual) PT INR Activated Clotting Time POC ABG pH POC ABG pCO2 POC ABG pO2 Sodium Potassium Chloride Carbon Dioxide BUN Creatinine Glucose POC Glucose 159 H 130 H 132 H Calcium Magnesium Direct Bilirubin AST ALT Alkaline Phosphatase Total Creatine Kinase CK-MB (CK-2) CK-MB (CK-2) Rel Index Troponin T C-Reactive Protein Total Protein Albumin Triglycerides Ur Specific [place] Urine WBC (Auto) Miscellaneous Test 04/28/17 04/28/17 04/28/17 11:15 17:38 23:23 WBC RBC Hgb Hct MCV MCH RDW Plt Count Lymph % (Auto) [place] % (Auto) Eos % (Auto) Baso % (Auto) Lymph # Baso # Seg Neutrophils % Lymphocytes % (Manual) Monocytes % (Manual) Nucleated RBC % Seg Neutrophils # Seg Neutrophils # Man Monocytes # (Manual) PT INR Activated Clotting Time POC ABG pH POC ABG pCO2 POC ABG pO2 Sodium Potassium Chloride Carbon Dioxide BUN Creatinine Glucose POC Glucose 162 H 133 H 138 H Calcium Magnesium Direct Bilirubin AST ALT Alkaline Phosphatase Total Creatine Kinase CK-MB (CK-2) CK-MB (CK-2) Rel Index Troponin T C-Reactive Protein Total Protein Albumin Triglycerides Ur Specific [place] Urine WBC (Auto) Miscellaneous Test 04/29/17 04/29/17 04/29/17 05:15 12:55 17:21 WBC RBC Hgb Hct MCV MCH RDW Plt Count Lymph % (Auto) [place] % (Auto) Eos % (Auto) Baso % (Auto) Lymph # Baso # Seg Neutrophils % Lymphocytes % (Manual) Monocytes % (Manual) Nucleated RBC % Seg Neutrophils # Seg Neutrophils # Man Monocytes # (Manual) PT INR Activated Clotting Time POC ABG pH POC ABG pCO2 POC ABG pO2 Sodium Potassium Chloride Carbon Dioxide BUN Creatinine Glucose POC Glucose 135 H 127 H 138 H Calcium Magnesium Direct Bilirubin AST ALT Alkaline Phosphatase Total Creatine Kinase CK-MB (CK-2) CK-MB (CK-2) Rel Index Troponin T C-Reactive Protein Total Protein Albumin Triglycerides Ur Specific [place] Urine WBC (Auto) Miscellaneous Test 04/29/17 04/30/17 04/30/17 23:52 04:55 12:22 WBC RBC Hgb Hct MCV MCH RDW Plt Count Lymph % (Auto) [place] % (Auto) Eos % (Auto) Baso % (Auto) Lymph # Baso # Seg Neutrophils % Lymphocytes % (Manual) Monocytes % (Manual) Nucleated RBC % Seg Neutrophils # Seg Neutrophils # Man Monocytes # (Manual) PT INR Activated Clotting Time POC ABG pH POC ABG pCO2 POC ABG pO2 Sodium Potassium Chloride Carbon Dioxide BUN Creatinine Glucose POC Glucose 142 H 146 H 132 H Calcium Magnesium Direct Bilirubin AST ALT Alkaline Phosphatase Total Creatine Kinase CK-MB (CK-2) CK-MB (CK-2) Rel Index Troponin T C-Reactive Protein Total Protein Albumin Triglycerides Ur Specific [place] Urine WBC (Auto) Miscellaneous Test 04/30/17 04/30/17 04/30/17 14:25 17:47 18:20 WBC RBC Hgb Hct MCV MCH RDW Plt Count Lymph % (Auto) [place] % (Auto) Eos % (Auto) Baso % (Auto) Lymph # Baso # Seg Neutrophils % Lymphocytes % (Manual) Monocytes % (Manual) Nucleated RBC % Seg Neutrophils # Seg Neutrophils # Man Monocytes # (Manual) PT INR Activated Clotting Time POC ABG pH 7.551 H POC ABG pCO2 32.7 L POC ABG pO2 Sodium Potassium Chloride Carbon Dioxide BUN 21 H Creatinine 0.2 L Glucose 141 H POC Glucose 139 H Calcium Magnesium Direct Bilirubin AST ALT Alkaline Phosphatase Total Creatine Kinase CK-MB (CK-2) CK-MB (CK-2) Rel Index Troponin T C-Reactive Protein Total Protein Albumin Triglycerides Ur Specific [place] Urine WBC (Auto) Miscellaneous Test 05/01/17 05/01/17 05/01/17 01:26 05:30 05:30 WBC RBC 3.49 L Hgb 10.3 L Hct 31.9 L MCV MCH RDW Plt Count Lymph % (Auto) [place] % (Auto) 8.1 H Eos % (Auto) Baso % (Auto) Lymph # Baso # Seg Neutrophils % 71.3 H Lymphocytes % (Manual) Monocytes % (Manual) Nucleated RBC % Seg Neutrophils # Seg Neutrophils # Man Monocytes # (Manual) PT INR Activated Clotting Time POC ABG pH POC ABG pCO2 POC ABG pO2 Sodium 136 L Potassium Chloride 97.6 L Carbon Dioxide BUN Creatinine 0.2 L Glucose 123 H POC Glucose 116 H Calcium Magnesium Direct Bilirubin AST 71 H ALT 125 H Alkaline Phosphatase 158 H Total Creatine Kinase CK-MB (CK-2) CK-MB (CK-2) Rel Index Troponin T C-Reactive Protein Total Protein Albumin 2.6 L Triglycerides Ur Specific [place] Urine WBC (Auto) Miscellaneous Test 05/01/17 05/01/17 05/02/17 11:59 17:23 00:08 WBC RBC Hgb Hct MCV MCH RDW Plt Count Lymph % (Auto) [place] % (Auto) Eos % (Auto) Baso % (Auto) Lymph # Baso # Seg Neutrophils % Lymphocytes % (Manual) Monocytes % (Manual) Nucleated RBC % Seg Neutrophils # Seg Neutrophils # Man Monocytes # (Manual) PT INR Activated Clotting Time POC ABG pH POC ABG pCO2 POC ABG pO2 Sodium Potassium Chloride Carbon Dioxide BUN Creatinine Glucose POC Glucose 118 H 144 H 122 H Calcium Magnesium Direct Bilirubin AST ALT Alkaline Phosphatase Total Creatine Kinase CK-MB (CK-2) CK-MB (CK-2) Rel Index Troponin T C-Reactive Protein Total Protein Albumin Triglycerides Ur Specific [place] Urine WBC (Auto) Miscellaneous Test 05/02/17 05/02/17 05/02/17 05:50 11:21 17:48 WBC RBC Hgb Hct MCV MCH RDW Plt Count Lymph % (Auto) [place] % (Auto) Eos % (Auto) Baso % (Auto) Lymph # Baso # Seg Neutrophils % Lymphocytes % (Manual) Monocytes % (Manual) Nucleated RBC % Seg Neutrophils # Seg Neutrophils # Man Monocytes # (Manual) PT INR Activated Clotting Time POC ABG pH POC ABG pCO2 POC ABG pO2 Sodium Potassium Chloride Carbon Dioxide BUN Creatinine Glucose POC Glucose 120 H 121 H 140 H Calcium Magnesium Direct Bilirubin AST ALT Alkaline Phosphatase Total Creatine Kinase CK-MB (CK-2) CK-MB (CK-2) Rel Index Troponin T C-Reactive Protein Total Protein Albumin Triglycerides Ur Specific [place] Urine WBC (Auto) Miscellaneous Test 05/02/17 05/03/17 05/03/17 23:12 05:35 11:52 WBC RBC Hgb Hct MCV MCH RDW Plt Count Lymph % (Auto) [place] % (Auto) Eos % (Auto) Baso % (Auto) Lymph # Baso # Seg Neutrophils % Lymphocytes % (Manual) Monocytes % (Manual) Nucleated RBC % Seg Neutrophils # Seg Neutrophils # Man Monocytes # (Manual) PT INR Activated Clotting Time POC ABG pH POC ABG pCO2 POC ABG pO2 Sodium Potassium Chloride Carbon Dioxide BUN Creatinine Glucose POC Glucose 128 H 113 H 126 H Calcium Magnesium Direct Bilirubin AST ALT Alkaline Phosphatase Total Creatine Kinase CK-MB (CK-2) CK-MB (CK-2) Rel Index Troponin T C-Reactive Protein Total Protein Albumin Triglycerides Ur Specific [place] Urine WBC (Auto) Miscellaneous Test 05/03/17 05/03/17 05/04/17 17:29 23:26 04:55 WBC RBC Hgb Hct MCV MCH RDW Plt Count Lymph % (Auto) [place] % (Auto) Eos % (Auto) Baso % (Auto) Lymph # Baso # Seg Neutrophils % Lymphocytes % (Manual) Monocytes % (Manual) Nucleated RBC % Seg Neutrophils # Seg Neutrophils # Man Monocytes # (Manual) PT INR Activated Clotting Time POC ABG pH POC ABG pCO2 POC ABG pO2 Sodium Potassium Chloride Carbon Dioxide BUN Creatinine Glucose POC Glucose 141 H 129 H 126 H Calcium Magnesium Direct Bilirubin AST ALT Alkaline Phosphatase Total Creatine Kinase CK-MB (CK-2) CK-MB (CK-2) Rel Index Troponin T C-Reactive Protein Total Protein Albumin Triglycerides Ur Specific [place] Urine WBC (Auto) Miscellaneous Test 05/04/17 05/04/17 05/05/17 12:09 17:46 00:06 WBC RBC Hgb Hct MCV MCH RDW Plt Count Lymph % (Auto) [place] % (Auto) Eos % (Auto) Baso % (Auto) Lymph # Baso # Seg Neutrophils % Lymphocytes % (Manual) Monocytes % (Manual) Nucleated RBC % Seg Neutrophils # Seg Neutrophils # Man Monocytes # (Manual) PT INR Activated Clotting Time POC ABG pH POC ABG pCO2 POC ABG pO2 Sodium Potassium Chloride Carbon Dioxide BUN Creatinine Glucose POC Glucose 125 H 125 H 110 H Calcium Magnesium Direct Bilirubin AST ALT Alkaline Phosphatase Total Creatine Kinase CK-MB (CK-2) CK-MB (CK-2) Rel Index Troponin T C-Reactive Protein Total Protein Albumin Triglycerides Ur Specific [place] Urine WBC (Auto) Miscellaneous Test 05/05/17 05/05/17 05/05/17 05:48 11:41 16:19 WBC RBC Hgb Hct MCV MCH RDW Plt Count Lymph % (Auto) [place] % (Auto) Eos % (Auto) Baso % (Auto) Lymph # Baso # Seg Neutrophils % Lymphocytes % (Manual) Monocytes % (Manual) Nucleated RBC % Seg Neutrophils # Seg Neutrophils # Man Monocytes # (Manual) PT INR Activated Clotting Time POC ABG pH POC ABG pCO2 POC ABG pO2 Sodium Potassium Chloride Carbon Dioxide BUN Creatinine Glucose POC Glucose 124 H 122 H 120 H Calcium Magnesium Direct Bilirubin AST ALT Alkaline Phosphatase Total Creatine Kinase CK-MB (CK-2) CK-MB (CK-2) Rel Index Troponin T C-Reactive Protein Total Protein Albumin Triglycerides Ur Specific [place] Urine WBC (Auto) Miscellaneous Test 05/06/17 05/06/17 05/06/17 00:16 05:47 11:42 WBC RBC Hgb Hct MCV MCH RDW Plt Count Lymph % (Auto) [place] % (Auto) Eos % (Auto) Baso % (Auto) Lymph # Baso # Seg Neutrophils % Lymphocytes % (Manual) Monocytes % (Manual) Nucleated RBC % Seg Neutrophils # Seg Neutrophils # Man Monocytes # (Manual) PT INR Activated Clotting Time POC ABG pH POC ABG pCO2 POC ABG pO2 Sodium Potassium Chloride Carbon Dioxide BUN Creatinine Glucose POC Glucose 110 H 142 H 120 H Calcium Magnesium Direct Bilirubin AST ALT Alkaline Phosphatase Total Creatine Kinase CK-MB (CK-2) CK-MB (CK-2) Rel Index Troponin T C-Reactive Protein Total Protein Albumin Triglycerides Ur Specific [place] Urine WBC (Auto) Miscellaneous Test 05/06/17 05/07/17 05/07/17 17:46 00:07 05:28 WBC RBC Hgb Hct MCV MCH RDW Plt Count Lymph % (Auto) [place] % (Auto) Eos % (Auto) Baso % (Auto) Lymph # Baso # Seg Neutrophils % Lymphocytes % (Manual) Monocytes % (Manual) Nucleated RBC % Seg Neutrophils # Seg Neutrophils # Man Monocytes # (Manual) PT INR Activated Clotting Time POC ABG pH POC ABG pCO2 POC ABG pO2 Sodium Potassium Chloride Carbon Dioxide BUN Creatinine Glucose POC Glucose 127 H 145 H 124 H Calcium Magnesium Direct Bilirubin AST ALT Alkaline Phosphatase Total Creatine Kinase CK-MB (CK-2) CK-MB (CK-2) Rel Index Troponin T C-Reactive Protein Total Protein Albumin Triglycerides Ur Specific [place] Urine WBC (Auto) Miscellaneous Test 05/07/17 05/07/17 05/08/17 11:17 17:14 00:03 WBC RBC Hgb Hct MCV MCH RDW Plt Count Lymph % (Auto) [place] % (Auto) Eos % (Auto) Baso % (Auto) Lymph # Baso # Seg Neutrophils % Lymphocytes % (Manual) Monocytes % (Manual) Nucleated RBC % Seg Neutrophils # Seg Neutrophils # Man Monocytes # (Manual) PT INR Activated Clotting Time POC ABG pH POC ABG pCO2 POC ABG pO2 Sodium Potassium Chloride Carbon Dioxide BUN Creatinine Glucose POC Glucose 144 H 125 H 122 H Calcium Magnesium Direct Bilirubin AST ALT Alkaline Phosphatase Total Creatine Kinase CK-MB (CK-2) CK-MB (CK-2) Rel Index Troponin T C-Reactive Protein Total Protein Albumin Triglycerides Ur Specific [place] Urine WBC (Auto) Miscellaneous Test 05/08/17 05/08/17 05/08/17 05:43 12:07 18:02 WBC RBC Hgb Hct MCV MCH RDW Plt Count Lymph % (Auto) [place] % (Auto) Eos % (Auto) Baso % (Auto) Lymph # Baso # Seg Neutrophils % Lymphocytes % (Manual) Monocytes % (Manual) Nucleated RBC % Seg Neutrophils # Seg Neutrophils # Man Monocytes # (Manual) PT INR Activated Clotting Time POC ABG pH POC ABG pCO2 POC ABG pO2 Sodium Potassium Chloride Carbon Dioxide BUN Creatinine Glucose POC Glucose 117 H 114 H 129 H Calcium Magnesium Direct Bilirubin AST ALT Alkaline Phosphatase Total Creatine Kinase CK-MB (CK-2) CK-MB (CK-2) Rel Index Troponin T C-Reactive Protein Total Protein Albumin Triglycerides Ur Specific [place] Urine WBC (Auto) Miscellaneous Test 05/08/17 05/09/17 05/09/17 23:53 04:19 05:14 WBC RBC Hgb Hct MCV MCH RDW Plt Count Lymph % (Auto) [place] % (Auto) Eos % (Auto) Baso % (Auto) Lymph # Baso # Seg Neutrophils % Lymphocytes % (Manual) Monocytes % (Manual) Nucleated RBC % Seg Neutrophils # Seg Neutrophils # Man Monocytes # (Manual) PT INR Activated Clotting Time POC ABG pH 7.524 H POC ABG pCO2 34.7 L POC ABG pO2 107 H Sodium Potassium Chloride Carbon Dioxide BUN Creatinine Glucose POC Glucose 125 H 118 H Calcium Magnesium Direct Bilirubin AST ALT Alkaline Phosphatase Total Creatine Kinase CK-MB (CK-2) CK-MB (CK-2) Rel Index Troponin T C-Reactive Protein Total Protein Albumin Triglycerides Ur Specific [place] Urine WBC (Auto) Miscellaneous Test 05/10/17 05/11/17 05/11/17 23:54 05:48 23:50 WBC RBC Hgb Hct MCV MCH RDW Plt Count Lymph % (Auto) [place] % (Auto) Eos % (Auto) Baso % (Auto) Lymph # Baso # Seg Neutrophils % Lymphocytes % (Manual) Monocytes % (Manual) Nucleated RBC % Seg Neutrophils # Seg Neutrophils # Man Monocytes # (Manual) PT INR Activated Clotting Time POC ABG pH POC ABG pCO2 POC ABG pO2 Sodium Potassium Chloride Carbon Dioxide BUN Creatinine Glucose POC Glucose 126 H 137 H 130 H Calcium Magnesium Direct Bilirubin AST ALT Alkaline Phosphatase Total Creatine Kinase CK-MB (CK-2) CK-MB (CK-2) Rel Index Troponin T C-Reactive Protein Total Protein Albumin Triglycerides Ur Specific [place] Urine WBC (Auto) Miscellaneous Test 05/12/17 05/12/17 05/12/17 05:48 11:33 18:00 WBC RBC Hgb Hct MCV MCH RDW Plt Count Lymph % (Auto) [place] % (Auto) Eos % (Auto) Baso % (Auto) Lymph # Baso # Seg Neutrophils % Lymphocytes % (Manual) Monocytes % (Manual) Nucleated RBC % Seg Neutrophils # Seg Neutrophils # Man Monocytes # (Manual) PT INR Activated Clotting Time POC ABG pH POC ABG pCO2 POC ABG pO2 Sodium Potassium Chloride Carbon Dioxide BUN Creatinine Glucose POC Glucose 126 H 116 H 131 H Calcium Magnesium Direct Bilirubin AST ALT Alkaline Phosphatase Total Creatine Kinase CK-MB (CK-2) CK-MB (CK-2) Rel Index Troponin T C-Reactive Protein Total Protein Albumin Triglycerides Ur Specific [place] Urine WBC (Auto) Miscellaneous Test 05/14/17 05/15/17 05/15/17 11:45 11:27 17:42 WBC RBC Hgb Hct MCV MCH RDW Plt Count Lymph % (Auto) [place] % (Auto) Eos % (Auto) Baso % (Auto) Lymph # Baso # Seg Neutrophils % Lymphocytes % (Manual) Monocytes % (Manual) Nucleated RBC % Seg Neutrophils # Seg Neutrophils # Man Monocytes # (Manual) PT INR Activated Clotting Time POC ABG pH POC ABG pCO2 POC ABG pO2 Sodium Potassium Chloride Carbon Dioxide BUN Creatinine Glucose POC Glucose 123 H 129 H 125 H Calcium Magnesium Direct Bilirubin AST ALT Alkaline Phosphatase Total Creatine Kinase CK-MB (CK-2) CK-MB (CK-2) Rel Index Troponin T C-Reactive Protein Total Protein Albumin Triglycerides Ur Specific [place] Urine WBC (Auto) Miscellaneous Test 05/16/17 05/16/17 05/17/17 00:29 06:50 03:45 WBC RBC Hgb 11.7 L Hct 34.8 L MCV MCH RDW 15.5 H Plt Count Lymph % (Auto) [place] % (Auto) 7.7 H Eos % (Auto) Baso % (Auto) Lymph # Baso # Seg Neutrophils % 73.7 H Lymphocytes % (Manual) Monocytes % (Manual) Nucleated RBC % Seg Neutrophils # Seg Neutrophils # Man Monocytes # (Manual) PT INR Activated Clotting Time POC ABG pH POC ABG pCO2 POC ABG pO2 Sodium Potassium Chloride Carbon Dioxide BUN Creatinine Glucose POC Glucose 141 H 138 H Calcium Magnesium Direct Bilirubin AST ALT Alkaline Phosphatase Total Creatine Kinase CK-MB (CK-2) CK-MB (CK-2) Rel Index Troponin T C-Reactive Protein Total Protein Albumin Triglycerides Ur Specific [place] Urine WBC (Auto) Miscellaneous Test 05/17/17 05/20/17 03:45 17:31 WBC RBC Hgb Hct MCV MCH RDW Plt Count Lymph % (Auto) [place] % (Auto) Eos % (Auto) Baso % (Auto) Lymph # Baso # Seg Neutrophils % Lymphocytes % (Manual) Monocytes % (Manual) Nucleated RBC % Seg Neutrophils # Seg Neutrophils # Man Monocytes # (Manual) PT INR Activated Clotting Time POC ABG pH POC ABG pCO2 POC ABG pO2 Sodium Potassium Chloride Carbon Dioxide BUN Creatinine 0.2 L Glucose 131 H POC Glucose 116 H Calcium Magnesium Direct Bilirubin AST ALT Alkaline Phosphatase Total Creatine Kinase CK-MB (CK-2) CK-MB (CK-2) Rel Index Troponin T C-Reactive Protein Total Protein Albumin Triglycerides Ur Specific [place] Urine WBC (Auto) Miscellaneous Test
[2017-05-23] MEDS: CORDARONE PO SCH ×2 (10:23→22:52)
[2017-05-23] MEDS: ASPIRIN PO SCH (10:23)
[2017-05-23] MEDS: PLAVIX PO SCH (10:23)
[2017-05-23] MEDS: ELIQUIS PO SCH ×2 (10:23→23:00)
[2017-05-23] MEDS: PROTONIX FEEDTUBE SCH (10:24)
[2017-05-23] MEDS: ZESTRIL PO SCH (10:24)
[2017-05-23] MEDS: LOPRESSOR PO SCH ×2 (10:24→22:53)
[2017-05-23] MEDS: TRANSDERM-SCOP TD SCH (14:58)
--- NOTE | 2017-05-23 21:06 | Progress Note ---
Assessment and Plan Assessment and plan: 46 y/o male with out of hospital Vfib arrest, s/p LHC with stent placement, likely with anoxic encephalopathy, status post trach and peg. V. fib arrest status post CPR anoxic encephalopathy respiratory failure vent dependent tracheostomy and PEG placement MRSA pneumonia with status. Sepsis poor prognosis, full CODE STATUS -- acute hypoxic hypercapnic respiratory failure; status post trach, vent dependent, PSV Trial --Hematuria; unknown etiology, resolved --Acute Cystitis --s/p cardiac arrest /anoxic encephalopathy/vegetative state --Acute anterior STEMI; status post PCI, --s/p MRSA pneumonia/aspiration pneumonia, s/p full treatment, contact isolation --Hypertension; monitor blood pressures and adjust medications as needed -- Aspiration pneumonia; sepsis; received full course of antibiotics --Cardiogenic shock; off pressors, --s/p trach and PEG, continue PEG feeds --Severe Protein calorie malnutrition: Peg feeds and nutrition supplements --DVT prophylaxis; Lovenox Continue current management --Full CODE STATUS Poor prognosis family aware, Multiple family meetings in the past. Still awaiting family decision Family has unrealistic expectations, requests to continue full CODE STATUS Dismal prognosis and bad outcome is expected as explained by neurology and Dr. Ham (see previous notes); The high probability of a clinically significant, sudden or life threatening deterioration of the [NEUROLOGY, pulmonary] system(s) required my full and direct attention, intervention and personal management. The aggregate critical care time was [35] minutes. This time is in addition to time spent performing reported procedures but includes the following: [X] Data Review and interpretation [X] Patient assessment and monitoring of vital signs [X] Documentation [X] Medication orders and management History Interval history: Patient seen and examined, remains on full ventilatory support and unresponsive. No clinical change Hospitalist Physical - Physical exam Narrative exam: General appearance: Present: no acute distress, well-nourished, other ( tracheostomy on vent) - EENT Eyes: Present: PERRL (spontaneous opening of eyes) - Neck Neck: Present: supple, other (tracheostomy) - Respiratory Respiratory effort: normal Respiratory: bilateral: diminished, rhonchi - Cardiovascular Rhythm: regular Heart Sounds: Present: S1 & S2 - Extremities Extremities: no ischemia Extremity abnormal: edema (trace edema) - Abdominal General gastrointestinal: soft, non-tender, non-distended, normal bowel sounds, other (PEG in place and functional) - Integumentary Integumentary: Present: clear, warm - Psychiatric Psychiatric: other (noncommunicative) - Neurologic Neurologic: other (unresponsive) - Constitutional Vitals: Temp Pulse Resp BP Pulse Ox 98.0 F 85 13 103/52 98 05/23/17 20:00 05/23/17 20:00 05/23/17 20:00 05/23/17 20:00 05/23/17 20:00 General appearance: Present: no acute distress, well-nourished, other ( tracheostomy on vent) Results - Labs CBC & Chem 7: 05/17/17 03:45 05/17/17 03:45 Labs: Laboratory Last Values WBC 9.4 K/mm3 (4.5-11.0) 05/17/17 03:45 RBC 3.85 M/mm3 (3.65-5.03) 05/17/17 03:45 Hgb 11.7 gm/dl (11.8-15.2) L 05/17/17 03:45 Hct 34.8 % (35.5-45.6) L 05/17/17 03:45 MCV 90 fl (84-94) 05/17/17 03:45 MCH 31 pg (28-32) 05/17/17 03:45 MCHC 34 % (32-34) 05/17/17 03:45 RDW 15.5 % (13.2-15.2) H 05/17/17 03:45 Plt Count 289 K/mm3 (140-440) 05/17/17 03:45 Lymph % (Auto) 15.6 % (13.4-35.0) 05/17/17 03:45 Bailey % (Auto) 7.7 % (0.0-7.3) H 05/17/17 03:45 Eos % (Auto) 2.7 % (0.0-4.3) 05/17/17 03:45 Baso % (Auto) 0.3 % (0.0-1.8) 05/17/17 03:45 Lymph # 1.5 K/mm3 (1.2-5.4) 05/17/17 03:45 Bailey # 0.7 K/mm3 (0.0-0.8) 05/17/17 03:45 Eos # 0.3 K/mm3 (0.0-0.4) 05/17/17 03:45 Baso # 0.0 K/mm3 (0.0-0.1) 05/17/17 03:45 Add Manual Diff Complete 03/30/17 03:50 Total Counted 100 03/30/17 03:50 Seg Neutrophils % 73.7 % (40.0-70.0) H 05/17/17 03:45 Seg Neuts % (Manual) 65.0 % (40.0-70.0) 03/30/17 03:50 Band Neutrophils % 17.0 % 03/30/17 03:50 Lymphocytes % (Manual) 7.0 % (13.4-35.0) L 03/30/17 03:50 Reactive Lymphs % (Man) 0 % 03/30/17 03:50 Monocytes % (Manual) 7.0 % (0.0-7.3) 03/30/17 03:50 Eosinophils % (Manual) 0 % (0.0-4.3) 03/30/17 03:50 Basophils % (Manual) 0 % (0.0-1.8) 03/30/17 03:50 Metamyelocytes % 4.0 % 03/30/17 03:50 Myelocytes % 0 % 03/30/17 03:50 Promyelocytes % 0 % 03/30/17 03:50 Blast Cells % 0 % 03/30/17 03:50 Nucleated RBC % Not Reportable 03/30/17 03:50 Seg Neutrophils # 6.9 K/mm3 (1.8-7.7) 05/17/17 03:45 Seg Neutrophils # Man 12.7 K/mm3 (1.8-7.7) H 03/30/17 03:50 Band Neutrophils # 3.3 K/mm3 03/30/17 03:50 Lymphocytes # (Manual) 1.4 K/mm3 (1.2-5.4) 03/30/17 03:50 Abs React Lymphs (Man) 0.0 K/mm3 03/30/17 03:50 Monocytes # (Manual) 1.4 K/mm3 (0.0-0.8) H 03/30/17 03:50 Eosinophils # (Manual) 0.0 K/mm3 (0.0-0.4) 03/30/17 03:50 Basophils # (Manual) 0.0 K/mm3 (0.0-0.1) 03/30/17 03:50 Metamyelocytes # 0.8 K/mm3 03/30/17 03:50 Myelocytes # 0.0 K/mm3 03/30/17 03:50 Promyelocytes # 0.0 K/mm3 03/30/17 03:50 Blast Cells # 0.0 K/mm3 03/30/17 03:50 WBC Morphology Not Reportable 03/30/17 03:50 Hypersegmented Neuts Not Reportable 03/30/17 03:50 Hyposegmented Neuts Not Reportable 03/30/17 03:50 Hypogranular Neuts Not Reportable 03/30/17 03:50 Smudge Cells Not Reportable 03/30/17 03:50 Toxic Granulation Not Reportable 03/30/17 03:50 Toxic Vacuolation Not Reportable 03/30/17 03:50 Dohle Bodies Not Reportable 03/30/17 03:50 Pelger-Huet Anomaly Not Reportable 03/30/17 03:50 Sherry Rods Not Reportable 03/30/17 03:50 Platelet Estimate Appears normal 03/30/17 03:50 Clumped Platelets Not Reportable 03/30/17 03:50 Plt Clumps, EDTA Not Reportable 03/30/17 03:50 Large Platelets Not Reportable 03/30/17 03:50 Giant Platelets Not Reportable 03/30/17 03:50 Platelet Satelliting Not Reportable 03/30/17 03:50 Plt Morphology Comment Not Reportable 03/30/17 03:50 RBC Morphology Not Reportable 03/30/17 03:50 Dimorphic RBCs Not Reportable 03/30/17 03:50 Polychromasia Not Reportable 03/30/17 03:50 Hypochromasia Not Reportable 03/30/17 03:50 Poikilocytosis Not Reportable 03/30/17 03:50 Anisocytosis Few 03/30/17 03:50 Microcytosis Not Reportable 03/30/17 03:50 Macrocytosis Not Reportable 03/30/17 03:50 Spherocytes Not Reportable 03/30/17 03:50 Pappenheimer Bodies Not Reportable 03/30/17 03:50 Sickle Cells Not Reportable 03/30/17 03:50 Target Cells Not Reportable 03/30/17 03:50 Tear Drop Cells Not Reportable 03/30/17 03:50 Ovalocytes Not Reportable 03/30/17 03:50 Helmet Cells Not Reportable 03/30/17 03:50 [place] Bodies Not Reportable 03/30/17 03:50 [place] Rings Not Reportable 03/30/17 03:50 Nusrat Cells Not Reportable 03/30/17 03:50 Bite Cells Not Reportable 03/30/17 03:50 Crenated Cell Not Reportable 03/30/17 03:50 Elliptocytes Not Reportable 03/30/17 03:50 Acanthocytes (Spur) Not Reportable 03/30/17 03:50 Rouleaux Not Reportable 03/30/17 03:50 Hemoglobin C Crystals Not Reportable 03/30/17 03:50 Schistocytes Not Reportable 03/30/17 03:50 Malaria parasites Not Reportable 03/30/17 03:50 Jermaine Bodies Not Reportable 03/30/17 03:50 Hem Pathologist Commnt No 03/30/17 03:50 PT 14.9 Sec. (12.2-14.9) 04/10/17 04:16 INR 1.11 (0.87-1.13) 04/10/17 04:16 APTT 27.8 Sec. (24.2-36.6) 04/10/17 04:16 Activated Clotting Time 92 (74-137) 03/29/17 17:47 POC ABG pH 7.524 (7.35-7.45) H 05/09/17 04:19 POC ABG pCO2 34.7 (35-45) L 05/09/17 04:19 POC ABG pO2 107 (80-105) H 05/09/17 04:19 POC ABG HCO3 28.6 05/09/17 04:19 POC ABG Total CO2 30 05/09/17 04:19 POC ABG O2 Sat 99 05/09/17 04:19 POC ABG Base Excess 6 05/09/17 04:19 FiO2 25 % 05/09/17 04:19 Sodium 140 mmol/L (137-145) 05/17/17 03:45 Potassium 3.8 mmol/L (3.6-5.0) 05/17/17 03:45 Chloride 100.5 mmol/L (98-107) 05/17/17 03:45 Carbon Dioxide 25 mmol/L (22-30) 05/17/17 03:45 Anion Gap 18 mmol/L 05/17/17 03:45 BUN 17 mg/dL (9-20) 05/17/17 03:45 Creatinine 0.2 mg/dL (0.8-1.5) L 05/17/17 03:45 Estimated GFR > 60 ml/min 05/17/17 03:45 BUN/Creatinine Ratio 85 % 05/17/17 03:45 Glucose 131 mg/dL (75-100) H 05/17/17 03:45 POC Glucose 116 (70-105) H 05/20/17 17:31 Calcium 9.1 mg/dL (8.4-10.2) 05/17/17 03:45 Phosphorus 3.50 mg/dL (2.5-4.5) 04/13/17 04:45 Magnesium 1.80 mg/dL (1.7-2.3) 05/01/17 05:30 Total Bilirubin 0.60 mg/dL (0.1-1.2) 05/01/17 05:30 Direct Bilirubin < 0.2 mg/dL (0-0.2) 04/27/17 05:40 Indirect Bilirubin 0.3 mg/dL 04/25/17 04:51 AST 71 units/L (5-40) H 05/01/17 05:30 ALT 125 units/L (7-56) H 05/01/17 05:30 Alkaline Phosphatase 158 units/L (35-129) H 05/01/17 05:30 Total Creatine Kinase 1404 units/L (55-170) H 04/12/17 21:36 CK-MB (CK-2) 8.0 ng/mL (0.0-4.0) H 04/12/17 21:36 CK-MB (CK-2) Rel Index 0.5 (0-4) 04/12/17 21:36 Troponin T 0.767 ng/mL (0.00-0.029) H* 04/12/17 21:36 C-Reactive Protein 21.80 mg/dL (0.00-1.30) H 03/30/17 16:04 Total Protein 6.7 g/dL (6.3-8.2) 05/01/17 05:30 Albumin 2.6 g/dL (3.9-5) L 05/01/17 05:30 Albumin/Globulin Ratio 0.6 % 05/01/17 05:30 Triglycerides 151 mg/dL (2-149) H 04/01/17 04:29 Cholesterol 164 mg/dL (50-199) 03/29/17 19:52 LDL Cholesterol Direct 81 mg/dL (50-130) 03/29/17 19:52 HDL Cholesterol 44 mg/dL (40-59) 03/29/17 19:52 Cholesterol/HDL Ratio 3.72 % 03/29/17 19:52 Urine Color [place] (Yellow) 04/21/17 22:00 Urine Turbidity Clear (Clear) 04/21/17 22:00 Urine pH 5.0 (5.0-7.0) 04/21/17 22:00 Ur Specific [place] 1.029 (1.003-1.030) 04/21/17 22:00 Urine Protein 30 mg/dl mg/dL (Negative) 04/21/17 22:00 Urine Glucose (UA) Neg mg/dL (Negative) 04/21/17 22:00 Urine Ketones Neg mg/dL (Negative) 04/21/17 22:00 Urine Blood Mod (Negative) 04/21/17 22:00 Urine Nitrite Neg (Negative) 04/21/17 22:00 Urine Bilirubin Neg (Negative) 04/21/17 22:00 Urine Urobilinogen 4.0 mg/dL (<2.0) 04/21/17 22:00 Ur Leukocyte Esterase Neg (Negative) 04/21/17 22:00 Urine WBC (Auto) 10.0 /HPF (0.0-6.0) H 04/21/17 22:00 Urine RBC (Auto) 44.0 /HPF (0.0-6.0) 04/21/17 22:00 U Epithel Cells (Auto) < 1.0 /HPF (0-13.0) 04/21/17 22:00 Amorphous Crystals 1+ 03/30/17 09:45 Urine Mucus 3+ /HPF 04/21/17 22:00 Urine Opiates Screen Presumptive negative 03/30/17 09:45 Urine Methadone Screen Presumptive negative 03/30/17 09:45 Ur Barbiturates Screen Presumptive negative 03/30/17 09:45 Ur Phencyclidine Scrn Presumptive negative 03/30/17 09:45 Ur Amphetamines Screen Presumptive positive 03/30/17 09:45 U Benzodiazepines Scrn Presumptive positive 03/30/17 09:45 Urine Cocaine Screen Presumptive negative 03/30/17 09:45 U Marijuana (THC) Screen Presumptive negative 03/30/17 09:45 Drugs of Abuse Note Disclamer 03/30/17 09:45 Miscellaneous Test Flexitest 1 H 04/25/17 07:07 Blood Type O POSITIVE 03/29/17 11:35 Antibody Screen Negative 03/29/17 11:35
--- NOTE | 2017-05-24 10:03 | Progress Note ---
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 No new recommendations for today. Patient remains full code and will continue PSV as tolerated with hopes of weaning to T-piece 1. PSV as tolerated with a goal to get to T-piece 2. Once tolerates T-piece for 24 hours, can consider transfer to floor, this is highly unlikely. 3. reviewed neurology note and agree with assessment 4. Continue all other cardiac meds 5. Overall prognosis still remains poor given amount of downtime during arrest. 6. Family meeting held, they feel the patient will overcome this current state as they have had other family members do the same. Very in depth conversation about the prognosis and current clinical state. I've made my best attempt to help them understand. Neuro agrees. Will continue supportive measures and attempt to wean. CCT 31 minutes. Subjective Date of service: 05/24/17 Principal diagnosis: coma,ARV,s/p arrest Interval history: No acute events. No change in mental status. No family at bedside. Objective Vital Signs - 12hr 05/23/17 05/23/17 05/24/17 22:53 23:00 00:00 Temperature 98.0 F Pulse Rate 79 86 71 Pulse Rate [ 76 From Monitor] Pulse Rate [ 76 Left Dorsalis Pedis] Pulse Rate [ 76 Left Radial] Pulse Rate [ 79 None] Pulse Rate [ 76 Right Dorsalis Pedis] Pulse Rate [ 76 Right Radial] Respiratory 19 18 Rate Blood Pressure 105/55 104/55 96/64 O2 Sat by Pulse 94 99 Oximetry 05/24/17 05/24/17 05/24/17 01:00 02:00 03:00 Temperature Pulse Rate 70 68 78 Pulse Rate [ From Monitor] Pulse Rate [ Left Dorsalis Pedis] Pulse Rate [ Left Radial] Pulse Rate [ None] Pulse Rate [ Right Dorsalis Pedis] Pulse Rate [ Right Radial] Respiratory 18 15 21 Rate Blood Pressure 102/54 98/50 93/58 O2 Sat by Pulse 96 94 93 Oximetry 05/24/17 05/24/17 05/24/17 03:35 04:00 04:59 Temperature 98.2 F Pulse Rate 78 83 Pulse Rate [ 74 From Monitor] Pulse Rate [ 74 Left Dorsalis Pedis] Pulse Rate [ 74 Left Radial] Pulse Rate [ 76 None] Pulse Rate [ 74 Right Dorsalis Pedis] Pulse Rate [ 74 Right Radial] Respiratory 21 12 Rate Blood Pressure 93/58 96/66 96/66 O2 Sat by Pulse 93 100 99 Oximetry 05/24/17 05/24/17 05/24/17 05:00 06:00 07:00 Temperature Pulse Rate 76 73 69 Pulse Rate [ From Monitor] Pulse Rate [ Left Dorsalis Pedis] Pulse Rate [ Left Radial] Pulse Rate [ None] Pulse Rate [ Right Dorsalis Pedis] Pulse Rate [ Right Radial] Respiratory 24 25 H 16 Rate Blood Pressure 94/62 96/66 96/66 O2 Sat by Pulse 94 99 96 Oximetry 05/24/17 05/24/17 05/24/17 07:45 07:53 08:00 Temperature 98.1 F Pulse Rate 74 67 Pulse Rate [ From Monitor] Pulse Rate [ Left Dorsalis Pedis] Pulse Rate [ Left Radial] Pulse Rate [ None] Pulse Rate [ Right Dorsalis Pedis] Pulse Rate [ Right Radial] Respiratory 15 Rate Blood Pressure 96/66 96/66 O2 Sat by Pulse 100 100 Oximetry Constitutional: no acute distress, comatose Eyes: non-icteric ENT: oropharynx moist Neck: supple, other (tracheotomy ) Effort: normal Ascultation: Bilateral: clear, diminished breath sounds, other (coarse BS bilaterally) Percussion: Bilateral: not dull Cardiovascular: regular rate and rhythm Gastrointestinal: normoactive bowel sounds, soft, non-tender, non-distended Integumentary: normal Extremities: no cyanosis, no edema, pink and warm Neurologic: other (nonresponsive with flaccid extremities) Psychiatric: other (eyes open spontaneously but does not follow any voice commands, otherwise nonresponsive except for pain) CBC and BMP: 05/17/17 03:45 05/17/17 03:45 ABG, PT/INR, D-dimer: ABG POC ABG pH 7.524 (7.35-7.45) H 05/09/17 04:19 POC ABG pCO2 34.7 (35-45) L 05/09/17 04:19 POC ABG pO2 107 (80-105) H 05/09/17 04:19 POC ABG HCO3 28.6 05/09/17 04:19 POC ABG Total CO2 30 05/09/17 04:19 POC ABG O2 Sat 99 02/13/18 04:19 PT/INR, D-dimer PT 14.9 Sec. (12.2-14.9) 04/10/17 04:16 INR 1.11 (0.87-1.13) 04/10/17 04:16 Abnormal lab findings: Abnormal Labs 03/29/17 03/29/17 03/29/17 11:35 11:35 11:40 WBC RBC Hgb Hct MCV 98 H MCH 33 H RDW Plt Count Lymph % (Auto) [place] % (Auto) Eos % (Auto) Baso % (Auto) Lymph # Baso # Seg Neutrophils % Lymphocytes % (Manual) Monocytes % (Manual) 9.0 H Nucleated RBC % 1.0 H Seg Neutrophils # Seg Neutrophils # Man Monocytes # (Manual) 0.9 H PT 15.8 H INR 1.20 H Activated Clotting Time POC ABG pH POC ABG pCO2 POC ABG pO2 Sodium Potassium 2.7 L* Chloride 95.3 L Carbon Dioxide 17 L BUN Creatinine Glucose 435 H POC Glucose Calcium Magnesium Direct Bilirubin AST ALT Alkaline Phosphatase Total Creatine Kinase CK-MB (CK-2) CK-MB (CK-2) Rel Index Troponin T C-Reactive Protein Total Protein 6.1 L Albumin 3.5 L Triglycerides Ur Specific [place] Urine WBC (Auto) Miscellaneous Test 03/29/17 03/29/17 03/29/17 12:34 13:10 13:25 WBC RBC Hgb Hct MCV MCH RDW Plt Count Lymph % (Auto) [place] % (Auto) Eos % (Auto) Baso % (Auto) Lymph # Baso # Seg Neutrophils % Lymphocytes % (Manual) Monocytes % (Manual) Nucleated RBC % Seg Neutrophils # Seg Neutrophils # Man Monocytes # (Manual) PT INR Activated Clotting Time 142 H 169 H 175 H POC ABG pH POC ABG pCO2 POC ABG pO2 Sodium Potassium Chloride Carbon Dioxide BUN Creatinine Glucose POC Glucose Calcium Magnesium Direct Bilirubin AST ALT Alkaline Phosphatase Total Creatine Kinase CK-MB (CK-2) CK-MB (CK-2) Rel Index Troponin T C-Reactive Protein Total Protein Albumin Triglycerides Ur Specific [place] Urine WBC (Auto) Miscellaneous Test 03/29/17 03/29/17 03/29/17 14:50 15:18 19:52 WBC RBC Hgb Hct MCV MCH RDW Plt Count Lymph % (Auto) [place] % (Auto) Eos % (Auto) Baso % (Auto) Lymph # Baso # Seg Neutrophils % Lymphocytes % (Manual) Monocytes % (Manual) Nucleated RBC % Seg Neutrophils # Seg Neutrophils # Man Monocytes # (Manual) PT INR Activated Clotting Time 175 H POC ABG pH 7.293 L POC ABG pCO2 POC ABG pO2 602 H Sodium Potassium Chloride Carbon Dioxide BUN Creatinine Glucose POC Glucose Calcium Magnesium Direct Bilirubin AST ALT Alkaline Phosphatase Total Creatine Kinase 7263 H CK-MB (CK-2) > 300.0 H CK-MB (CK-2) Rel Index 4.1 H Troponin T 8.080 H* D C-Reactive Protein Total Protein Albumin Triglycerides 195 H Ur Specific [place] Urine WBC (Auto) Miscellaneous Test 03/30/17 03/30/17 03/30/17 03:50 03:50 06:19 WBC 19.5 H RBC Hgb Hct MCV MCH RDW Plt Count Lymph % (Auto) [place] % (Auto) Eos % (Auto) Baso % (Auto) Lymph # Baso # Seg Neutrophils % Lymphocytes % (Manual) 7.0 L Monocytes % (Manual) Nucleated RBC % Seg Neutrophils # Seg Neutrophils # Man 12.7 H Monocytes # (Manual) 1.4 H PT INR Activated Clotting Time POC ABG pH POC ABG pCO2 28.2 L POC ABG pO2 108 H Sodium Potassium Chloride 108.9 H Carbon Dioxide 15 L BUN 25 H Creatinine Glucose 158 H POC Glucose Calcium 8.1 L Magnesium Direct Bilirubin AST ALT Alkaline Phosphatase Total Creatine Kinase 7963 H CK-MB (CK-2) > 300.0 H CK-MB (CK-2) Rel Index Troponin T 6.850 H* C-Reactive Protein Total Protein Albumin Triglycerides Ur Specific [place] Urine WBC (Auto) Miscellaneous Test 03/30/17 03/30/17 03/31/17 09:45 16:04 02:19 WBC RBC Hgb Hct MCV MCH RDW Plt Count Lymph % (Auto) [place] % (Auto) Eos % (Auto) Baso % (Auto) Lymph # Baso # Seg Neutrophils % Lymphocytes % (Manual) Monocytes % (Manual) Nucleated RBC % Seg Neutrophils # Seg Neutrophils # Man Monocytes # (Manual) PT INR Activated Clotting Time POC ABG pH POC ABG pCO2 POC ABG pO2 Sodium Potassium Chloride Carbon Dioxide BUN Creatinine Glucose POC Glucose 137 H Calcium Magnesium Direct Bilirubin AST ALT Alkaline Phosphatase Total Creatine Kinase CK-MB (CK-2) CK-MB (CK-2) Rel Index Troponin T C-Reactive Protein 21.80 H Total Protein Albumin Triglycerides Ur Specific [place] 1.031 H Urine WBC (Auto) Miscellaneous Test 03/31/17 03/31/17 03/31/17 03:57 06:54 09:22 WBC RBC Hgb Hct MCV MCH RDW Plt Count Lymph % (Auto) [place] % (Auto) Eos % (Auto) Baso % (Auto) Lymph # Baso # Seg Neutrophils % Lymphocytes % (Manual) Monocytes % (Manual) Nucleated RBC % Seg Neutrophils # Seg Neutrophils # Man Monocytes # (Manual) PT INR Activated Clotting Time POC ABG pH 7.475 H POC ABG pCO2 25.4 L POC ABG pO2 62 L Sodium Potassium Chloride Carbon Dioxide 19 L BUN 22 H Creatinine 0.6 L Glucose 148 H POC Glucose 143 H Calcium 8.3 L Magnesium Direct Bilirubin AST ALT Alkaline Phosphatase Total Creatine Kinase CK-MB (CK-2) CK-MB (CK-2) Rel Index Troponin T C-Reactive Protein Total Protein Albumin Triglycerides Ur Specific [place] Urine WBC (Auto) Miscellaneous Test 03/31/17 03/31/17 03/31/17 11:40 17:47 23:38 WBC RBC Hgb Hct MCV MCH RDW Plt Count Lymph % (Auto) [place] % (Auto) Eos % (Auto) Baso % (Auto) Lymph # Baso # Seg Neutrophils % Lymphocytes % (Manual) Monocytes % (Manual) Nucleated RBC % Seg Neutrophils # Seg Neutrophils # Man Monocytes # (Manual) PT INR Activated Clotting Time POC ABG pH POC ABG pCO2 POC ABG pO2 Sodium Potassium Chloride Carbon Dioxide BUN Creatinine Glucose POC Glucose 127 H 137 H 148 H Calcium Magnesium Direct Bilirubin AST ALT Alkaline Phosphatase Total Creatine Kinase CK-MB (CK-2) CK-MB (CK-2) Rel Index Troponin T C-Reactive Protein Total Protein Albumin Triglycerides Ur Specific [place] Urine WBC (Auto) Miscellaneous Test 04/01/17 04/01/17 04/01/17 04:29 05:01 11:54 WBC RBC Hgb Hct MCV MCH RDW Plt Count Lymph % (Auto) [place] % (Auto) Eos % (Auto) Baso % (Auto) Lymph # Baso # Seg Neutrophils % Lymphocytes % (Manual) Monocytes % (Manual) Nucleated RBC % Seg Neutrophils # Seg Neutrophils # Man Monocytes # (Manual) PT INR Activated Clotting Time POC ABG pH 7.513 H POC ABG pCO2 22.1 L POC ABG pO2 64 L Sodium Potassium Chloride Carbon Dioxide BUN Creatinine Glucose POC Glucose 121 H Calcium Magnesium Direct Bilirubin AST ALT Alkaline Phosphatase Total Creatine Kinase CK-MB (CK-2) CK-MB (CK-2) Rel Index Troponin T C-Reactive Protein Total Protein Albumin Triglycerides 151 H Ur Specific [place] Urine WBC (Auto) Miscellaneous Test 04/01/17 04/02/17 04/02/17 18:17 00:11 04:52 WBC RBC Hgb Hct MCV MCH RDW Plt Count Lymph % (Auto) [place] % (Auto) Eos % (Auto) Baso % (Auto) Lymph # Baso # Seg Neutrophils % Lymphocytes % (Manual) Monocytes % (Manual) Nucleated RBC % Seg Neutrophils # Seg Neutrophils # Man Monocytes # (Manual) PT INR Activated Clotting Time POC ABG pH 7.524 H POC ABG pCO2 25.5 L POC ABG pO2 66 L Sodium Potassium Chloride Carbon Dioxide BUN Creatinine Glucose POC Glucose 117 H 122 H Calcium Magnesium Direct Bilirubin AST ALT Alkaline Phosphatase Total Creatine Kinase CK-MB (CK-2) CK-MB (CK-2) Rel Index Troponin T C-Reactive Protein Total Protein Albumin Triglycerides Ur Specific [place] Urine WBC (Auto) Miscellaneous Test 04/02/17 04/02/17 04/02/17 05:18 10:41 12:19 WBC RBC Hgb Hct MCV MCH RDW Plt Count Lymph % (Auto) [place] % (Auto) Eos % (Auto) Baso % (Auto) Lymph # Baso # Seg Neutrophils % Lymphocytes % (Manual) Monocytes % (Manual) Nucleated RBC % Seg Neutrophils # Seg Neutrophils # Man Monocytes # (Manual) PT INR Activated Clotting Time POC ABG pH 7.534 H POC ABG pCO2 27.4 L POC ABG pO2 Sodium Potassium Chloride Carbon Dioxide BUN Creatinine Glucose POC Glucose 132 H 129 H Calcium Magnesium Direct Bilirubin AST ALT Alkaline Phosphatase Total Creatine Kinase CK-MB (CK-2) CK-MB (CK-2) Rel Index Troponin T C-Reactive Protein Total Protein Albumin Triglycerides Ur Specific [place] Urine WBC (Auto) Miscellaneous Test 04/02/17 04/03/17 04/03/17 18:05 00:08 05:09 WBC RBC Hgb Hct MCV MCH RDW Plt Count Lymph % (Auto) [place] % (Auto) Eos % (Auto) Baso % (Auto) Lymph # Baso # Seg Neutrophils % Lymphocytes % (Manual) Monocytes % (Manual) Nucleated RBC % Seg Neutrophils # Seg Neutrophils # Man Monocytes # (Manual) PT INR Activated Clotting Time POC ABG pH 7.455 H POC ABG pCO2 33.2 L POC ABG pO2 120 H Sodium Potassium Chloride Carbon Dioxide BUN Creatinine Glucose POC Glucose 136 H 128 H Calcium Magnesium Direct Bilirubin AST ALT Alkaline Phosphatase Total Creatine Kinase CK-MB (CK-2) CK-MB (CK-2) Rel Index Troponin T C-Reactive Protein Total Protein Albumin Triglycerides Ur Specific [place] Urine WBC (Auto) Miscellaneous Test 04/03/17 04/03/17 04/03/17 06:32 11:54 12:16 WBC 11.9 H RBC Hgb Hct MCV MCH RDW Plt Count 125 L Lymph % (Auto) 4.8 L [place] % (Auto) Eos % (Auto) Baso % (Auto) Lymph # 0.6 L Baso # Seg Neutrophils % 86.7 H Lymphocytes % (Manual) Monocytes % (Manual) Nucleated RBC % Seg Neutrophils # 10.3 H Seg Neutrophils # Man Monocytes # (Manual) PT INR Activated Clotting Time POC ABG pH POC ABG pCO2 POC ABG pO2 Sodium Potassium Chloride Carbon Dioxide BUN Creatinine Glucose POC Glucose 138 H 143 H Calcium Magnesium Direct Bilirubin AST ALT Alkaline Phosphatase Total Creatine Kinase CK-MB (CK-2) CK-MB (CK-2) Rel Index Troponin T C-Reactive Protein Total Protein Albumin Triglycerides Ur Specific [place] Urine WBC (Auto) Miscellaneous Test 04/03/17 04/03/17 04/04/17 17:33 23:59 04:34 WBC RBC Hgb Hct MCV MCH RDW Plt Count Lymph % (Auto) [place] % (Auto) Eos % (Auto) Baso % (Auto) Lymph # Baso # Seg Neutrophils % Lymphocytes % (Manual) Monocytes % (Manual) Nucleated RBC % Seg Neutrophils # Seg Neutrophils # Man Monocytes # (Manual) PT INR Activated Clotting Time POC ABG pH 7.457 H POC ABG pCO2 29.8 L POC ABG pO2 76 L Sodium Potassium Chloride Carbon Dioxide BUN Creatinine Glucose POC Glucose 130 H 155 H Calcium Magnesium Direct Bilirubin AST ALT Alkaline Phosphatase Total Creatine Kinase CK-MB (CK-2) CK-MB (CK-2) Rel Index Troponin T C-Reactive Protein Total Protein Albumin Triglycerides Ur Specific [place] Urine WBC (Auto) Miscellaneous Test 04/04/17 04/04/17 04/04/17 05:27 12:22 18:18 WBC RBC Hgb Hct MCV MCH RDW Plt Count Lymph % (Auto) [place] % (Auto) Eos % (Auto) Baso % (Auto) Lymph # Baso # Seg Neutrophils % Lymphocytes % (Manual) Monocytes % (Manual) Nucleated RBC % Seg Neutrophils # Seg Neutrophils # Man Monocytes # (Manual) PT INR Activated Clotting Time POC ABG pH POC ABG pCO2 POC ABG pO2 Sodium Potassium Chloride Carbon Dioxide BUN Creatinine Glucose POC Glucose 164 H 146 H 130 H Calcium Magnesium Direct Bilirubin AST ALT Alkaline Phosphatase Total Creatine Kinase CK-MB (CK-2) CK-MB (CK-2) Rel Index Troponin T C-Reactive Protein Total Protein Albumin Triglycerides Ur Specific [place] Urine WBC (Auto) Miscellaneous Test 04/05/17 04/05/17 04/05/17 04:43 05:28 11:36 WBC RBC Hgb Hct MCV MCH RDW Plt Count Lymph % (Auto) [place] % (Auto) Eos % (Auto) Baso % (Auto) Lymph # Baso # Seg Neutrophils % Lymphocytes % (Manual) Monocytes % (Manual) Nucleated RBC % Seg Neutrophils # Seg Neutrophils # Man Monocytes # (Manual) PT INR Activated Clotting Time POC ABG pH 7.479 H POC ABG pCO2 33.5 L POC ABG pO2 76 L Sodium Potassium Chloride Carbon Dioxide BUN Creatinine Glucose POC Glucose 145 H 136 H Calcium Magnesium Direct Bilirubin AST ALT Alkaline Phosphatase Total Creatine Kinase CK-MB (CK-2) CK-MB (CK-2) Rel Index Troponin T C-Reactive Protein Total Protein Albumin Triglycerides Ur Specific [place] Urine WBC (Auto) Miscellaneous Test 04/05/17 04/06/17 04/06/17 17:58 00:16 05:26 WBC RBC Hgb Hct MCV MCH RDW Plt Count Lymph % (Auto) [place] % (Auto) Eos % (Auto) Baso % (Auto) Lymph # Baso # Seg Neutrophils % Lymphocytes % (Manual) Monocytes % (Manual) Nucleated RBC % Seg Neutrophils # Seg Neutrophils # Man Monocytes # (Manual) PT INR Activated Clotting Time POC ABG pH POC ABG pCO2 POC ABG pO2 Sodium Potassium Chloride Carbon Dioxide BUN Creatinine Glucose POC Glucose 130 H 159 H 146 H Calcium Magnesium Direct Bilirubin AST ALT Alkaline Phosphatase Total Creatine Kinase CK-MB (CK-2) CK-MB (CK-2) Rel Index Troponin T C-Reactive Protein Total Protein Albumin Triglycerides Ur Specific [place] Urine WBC (Auto) Miscellaneous Test 04/06/17 04/06/17 04/07/17 13:11 16:54 11:45 WBC RBC Hgb Hct MCV MCH RDW Plt Count Lymph % (Auto) [place] % (Auto) Eos % (Auto) Baso % (Auto) Lymph # Baso # Seg Neutrophils % Lymphocytes % (Manual) Monocytes % (Manual) Nucleated RBC % Seg Neutrophils # Seg Neutrophils # Man Monocytes # (Manual) PT INR Activated Clotting Time POC ABG pH 7.517 H POC ABG pCO2 32.1 L POC ABG pO2 Sodium Potassium Chloride Carbon Dioxide BUN Creatinine Glucose POC Glucose 132 H 123 H Calcium Magnesium Direct Bilirubin AST ALT Alkaline Phosphatase Total Creatine Kinase CK-MB (CK-2) CK-MB (CK-2) Rel Index Troponin T C-Reactive Protein Total Protein Albumin Triglycerides Ur Specific [place] Urine WBC (Auto) Miscellaneous Test 04/07/17 04/07/17 04/07/17 12:51 17:40 23:55 WBC RBC Hgb Hct MCV MCH RDW Plt Count Lymph % (Auto) [place] % (Auto) Eos % (Auto) Baso % (Auto) Lymph # Baso # Seg Neutrophils % Lymphocytes % (Manual) Monocytes % (Manual) Nucleated RBC % Seg Neutrophils # Seg Neutrophils # Man Monocytes # (Manual) PT INR Activated Clotting Time POC ABG pH POC ABG pCO2 POC ABG pO2 Sodium Potassium Chloride Carbon Dioxide BUN Creatinine Glucose POC Glucose 138 H 154 H 143 H Calcium Magnesium Direct Bilirubin AST ALT Alkaline Phosphatase Total Creatine Kinase CK-MB (CK-2) CK-MB (CK-2) Rel Index Troponin T C-Reactive Protein Total Protein Albumin Triglycerides Ur Specific [place] Urine WBC (Auto) Miscellaneous Test 04/08/17 04/08/17 04/08/17 05:27 11:14 17:44 WBC RBC Hgb Hct MCV MCH RDW Plt Count Lymph % (Auto) [place] % (Auto) Eos % (Auto) Baso % (Auto) Lymph # Baso # Seg Neutrophils % Lymphocytes % (Manual) Monocytes % (Manual) Nucleated RBC % Seg Neutrophils # Seg Neutrophils # Man Monocytes # (Manual) PT INR Activated Clotting Time POC ABG pH POC ABG pCO2 POC ABG pO2 Sodium Potassium Chloride Carbon Dioxide BUN Creatinine Glucose POC Glucose 142 H 153 H 129 H Calcium Magnesium Direct Bilirubin AST ALT Alkaline Phosphatase Total Creatine Kinase CK-MB (CK-2) CK-MB (CK-2) Rel Index Troponin T C-Reactive Protein Total Protein Albumin Triglycerides Ur Specific [place] Urine WBC (Auto) Miscellaneous Test 04/09/17 04/09/17 04/09/17 08:20 11:21 17:37 WBC RBC Hgb Hct MCV MCH RDW Plt Count Lymph % (Auto) [place] % (Auto) Eos % (Auto) Baso % (Auto) Lymph # Baso # Seg Neutrophils % Lymphocytes % (Manual) Monocytes % (Manual) Nucleated RBC % Seg Neutrophils # Seg Neutrophils # Man Monocytes # (Manual) PT INR Activated Clotting Time POC ABG pH POC ABG pCO2 POC ABG pO2 Sodium 147 H Potassium Chloride 108.8 H Carbon Dioxide BUN 39 H Creatinine 0.5 L Glucose 138 H POC Glucose 152 H 109 H Calcium Magnesium Direct Bilirubin AST ALT Alkaline Phosphatase Total Creatine Kinase CK-MB (CK-2) CK-MB (CK-2) Rel Index Troponin T C-Reactive Protein Total Protein Albumin Triglycerides Ur Specific [place] Urine WBC (Auto) Miscellaneous Test 04/10/17 04/10/17 04/10/17 00:13 04:16 04:16 WBC RBC Hgb 11.5 L Hct MCV 96 H MCH RDW Plt Count 103 L Lymph % (Auto) 11.1 L [place] % (Auto) Eos % (Auto) Baso % (Auto) Lymph # Baso # Seg Neutrophils % 81.5 H Lymphocytes % (Manual) Monocytes % (Manual) Nucleated RBC % Seg Neutrophils # 8.8 H Seg Neutrophils # Man Monocytes # (Manual) PT INR Activated Clotting Time POC ABG pH POC ABG pCO2 POC ABG pO2 Sodium 148 H Potassium Chloride 109.0 H Carbon Dioxide BUN 36 H Creatinine 0.5 L Glucose 131 H POC Glucose 127 H Calcium 8.1 L Magnesium 2.40 H Direct Bilirubin AST 206 H ALT 228 H Alkaline Phosphatase 178 H Total Creatine Kinase CK-MB (CK-2) CK-MB (CK-2) Rel Index Troponin T C-Reactive Protein Total Protein Albumin 2.8 L Triglycerides Ur Specific [place] Urine WBC (Auto) Miscellaneous Test 04/10/17 04/10/17 04/10/17 06:01 11:57 18:27 WBC RBC Hgb Hct MCV MCH RDW Plt Count Lymph % (Auto) [place] % (Auto) Eos % (Auto) Baso % (Auto) Lymph # Baso # Seg Neutrophils % Lymphocytes % (Manual) Monocytes % (Manual) Nucleated RBC % Seg Neutrophils # Seg Neutrophils # Man Monocytes # (Manual) PT INR Activated Clotting Time POC ABG pH POC ABG pCO2 POC ABG pO2 Sodium Potassium Chloride Carbon Dioxide BUN Creatinine Glucose POC Glucose 108 H 154 H 130 H Calcium Magnesium Direct Bilirubin AST ALT Alkaline Phosphatase Total Creatine Kinase CK-MB (CK-2) CK-MB (CK-2) Rel Index Troponin T C-Reactive Protein Total Protein Albumin Triglycerides Ur Specific [place] Urine WBC (Auto) Miscellaneous Test 04/11/17 04/11/17 04/12/17 12:25 17:10 00:22 WBC RBC Hgb Hct MCV MCH RDW Plt Count Lymph % (Auto) [place] % (Auto) Eos % (Auto) Baso % (Auto) Lymph # Baso # Seg Neutrophils % Lymphocytes % (Manual) Monocytes % (Manual) Nucleated RBC % Seg Neutrophils # Seg Neutrophils # Man Monocytes # (Manual) PT INR Activated Clotting Time POC ABG pH POC ABG pCO2 POC ABG pO2 Sodium Potassium Chloride Carbon Dioxide BUN Creatinine Glucose POC Glucose 107 H 129 H 128 H Calcium Magnesium Direct Bilirubin AST ALT Alkaline Phosphatase Total Creatine Kinase CK-MB (CK-2) CK-MB (CK-2) Rel Index Troponin T C-Reactive Protein Total Protein Albumin Triglycerides Ur Specific [place] Urine WBC (Auto) Miscellaneous Test 04/12/17 04/12/17 04/12/17 05:00 11:57 17:47 WBC RBC Hgb Hct MCV MCH RDW Plt Count Lymph % (Auto) [place] % (Auto) Eos % (Auto) Baso % (Auto) Lymph # Baso # Seg Neutrophils % Lymphocytes % (Manual) Monocytes % (Manual) Nucleated RBC % Seg Neutrophils # Seg Neutrophils # Man Monocytes # (Manual) PT INR Activated Clotting Time POC ABG pH POC ABG pCO2 POC ABG pO2 Sodium Potassium Chloride Carbon Dioxide BUN Creatinine Glucose POC Glucose 140 H 142 H Calcium Magnesium Direct Bilirubin AST 158 H ALT 184 H Alkaline Phosphatase 170 H Total Creatine Kinase CK-MB (CK-2) CK-MB (CK-2) Rel Index Troponin T C-Reactive Protein Total Protein Albumin 2.8 L Triglycerides Ur Specific [place] Urine WBC (Auto) Miscellaneous Test 04/12/17 04/12/17 04/13/17 21:36 21:36 01:37 WBC RBC Hgb Hct MCV MCH RDW Plt Count Lymph % (Auto) [place] % (Auto) Eos % (Auto) Baso % (Auto) Lymph # Baso # Seg Neutrophils % Lymphocytes % (Manual) Monocytes % (Manual) Nucleated RBC % Seg Neutrophils # Seg Neutrophils # Man Monocytes # (Manual) PT INR Activated Clotting Time POC ABG pH POC ABG pCO2 POC ABG pO2 Sodium Potassium Chloride Carbon Dioxide BUN Creatinine Glucose POC Glucose 126 H Calcium Magnesium Direct Bilirubin AST ALT Alkaline Phosphatase Total Creatine Kinase 1404 H CK-MB (CK-2) 8.0 H CK-MB (CK-2) Rel Index Troponin T 0.767 H* C-Reactive Protein Total Protein Albumin Triglycerides Ur Specific [place] Urine WBC (Auto) Miscellaneous Test 04/13/17 04/13/17 04/13/17 04:45 04:52 12:17 WBC RBC Hgb Hct MCV MCH RDW Plt Count Lymph % (Auto) [place] % (Auto) Eos % (Auto) Baso % (Auto) Lymph # Baso # Seg Neutrophils % Lymphocytes % (Manual) Monocytes % (Manual) Nucleated RBC % Seg Neutrophils # Seg Neutrophils # Man Monocytes # (Manual) PT INR Activated Clotting Time POC ABG pH POC ABG pCO2 POC ABG pO2 Sodium 148 H Potassium Chloride 112.8 H Carbon Dioxide BUN 33 H Creatinine 0.4 L Glucose 121 H POC Glucose 126 H 149 H Calcium Magnesium Direct Bilirubin AST 160 H ALT 189 H Alkaline Phosphatase 166 H Total Creatine Kinase CK-MB (CK-2) CK-MB (CK-2) Rel Index Troponin T C-Reactive Protein Total Protein Albumin 2.6 L Triglycerides Ur Specific [place] Urine WBC (Auto) Miscellaneous Test 04/13/17 04/14/17 04/14/17 17:45 00:20 00:45 WBC RBC Hgb Hct MCV MCH RDW Plt Count Lymph % (Auto) [place] % (Auto) Eos % (Auto) Baso % (Auto) Lymph # Baso # Seg Neutrophils % Lymphocytes % (Manual) Monocytes % (Manual) Nucleated RBC % Seg Neutrophils # Seg Neutrophils # Man Monocytes # (Manual) PT INR Activated Clotting Time POC ABG pH POC ABG pCO2 POC ABG pO2 Sodium Potassium Chloride Carbon Dioxide BUN Creatinine Glucose POC Glucose 130 H 144 H 144 H Calcium Magnesium Direct Bilirubin AST ALT Alkaline Phosphatase Total Creatine Kinase CK-MB (CK-2) CK-MB (CK-2) Rel Index Troponin T C-Reactive Protein Total Protein Albumin Triglycerides Ur Specific [place] Urine WBC (Auto) Miscellaneous Test 04/14/17 04/14/17 04/14/17 05:40 11:06 11:31 WBC RBC Hgb Hct MCV MCH RDW Plt Count Lymph % (Auto) [place] % (Auto) Eos % (Auto) Baso % (Auto) Lymph # Baso # Seg Neutrophils % Lymphocytes % (Manual) Monocytes % (Manual) Nucleated RBC % Seg Neutrophils # Seg Neutrophils # Man Monocytes # (Manual) PT INR Activated Clotting Time POC ABG pH POC ABG pCO2 POC ABG pO2 Sodium Potassium Chloride Carbon Dioxide BUN Creatinine Glucose POC Glucose 139 H 123 H Calcium Magnesium Direct Bilirubin AST ALT Alkaline Phosphatase Total Creatine Kinase CK-MB (CK-2) CK-MB (CK-2) Rel Index Troponin T C-Reactive Protein Total Protein Albumin Triglycerides Ur Specific [place] 1.033 H Urine WBC (Auto) > 182.0 H Miscellaneous Test 04/14/17 04/14/17 04/15/17 18:00 23:52 05:15 WBC 12.5 H RBC 3.38 L Hgb 10.6 L Hct 32.7 L MCV 97 H MCH RDW Plt Count 107 L Lymph % (Auto) 8.7 L [place] % (Auto) Eos % (Auto) Baso % (Auto) Lymph # 1.1 L Baso # Seg Neutrophils % 86.1 H Lymphocytes % (Manual) Monocytes % (Manual) Nucleated RBC % Seg Neutrophils # 10.7 H Seg Neutrophils # Man Monocytes # (Manual) PT INR Activated Clotting Time POC ABG pH POC ABG pCO2 POC ABG pO2 Sodium Potassium Chloride Carbon Dioxide BUN Creatinine Glucose POC Glucose 133 H 133 H Calcium Magnesium Direct Bilirubin AST ALT Alkaline Phosphatase Total Creatine Kinase CK-MB (CK-2) CK-MB (CK-2) Rel Index Troponin T C-Reactive Protein Total Protein Albumin Triglycerides Ur Specific [place] Urine WBC (Auto) Miscellaneous Test 04/15/17 04/15/17 04/15/17 05:15 05:25 11:50 WBC RBC Hgb Hct MCV MCH RDW Plt Count Lymph % (Auto) [place] % (Auto) Eos % (Auto) Baso % (Auto) Lymph # Baso # Seg Neutrophils % Lymphocytes % (Manual) Monocytes % (Manual) Nucleated RBC % Seg Neutrophils # Seg Neutrophils # Man Monocytes # (Manual) PT INR Activated Clotting Time POC ABG pH POC ABG pCO2 POC ABG pO2 Sodium 149 H Potassium 3.5 L Chloride 114.1 H Carbon Dioxide 21 L BUN 29 H Creatinine 0.4 L Glucose 128 H POC Glucose 133 H 107 H Calcium 8.3 L Magnesium Direct Bilirubin 0.4 H AST 149 H ALT 182 H Alkaline Phosphatase 143 H Total Creatine Kinase CK-MB (CK-2) CK-MB (CK-2) Rel Index Troponin T C-Reactive Protein Total Protein Albumin 2.5 L Triglycerides Ur Specific [place] Urine WBC (Auto) Miscellaneous Test 04/15/17 04/16/17 04/16/17 16:55 00:02 03:17 WBC RBC 3.39 L Hgb 10.5 L Hct 32.4 L MCV 96 H MCH RDW Plt Count 106 L Lymph % (Auto) 6.7 L [place] % (Auto) Eos % (Auto) Baso % (Auto) Lymph # 0.6 L Baso # Seg Neutrophils % 86.8 H Lymphocytes % (Manual) Monocytes % (Manual) Nucleated RBC % Seg Neutrophils # 8.2 H Seg Neutrophils # Man Monocytes # (Manual) PT INR Activated Clotting Time POC ABG pH POC ABG pCO2 POC ABG pO2 Sodium Potassium Chloride Carbon Dioxide BUN Creatinine Glucose POC Glucose 146 H 148 H Calcium Magnesium Direct Bilirubin AST ALT Alkaline Phosphatase Total Creatine Kinase CK-MB (CK-2) CK-MB (CK-2) Rel Index Troponin T C-Reactive Protein Total Protein Albumin Triglycerides Ur Specific [place] Urine WBC (Auto) Miscellaneous Test 04/16/17 04/16/17 04/16/17 03:17 05:19 11:13 WBC RBC Hgb Hct MCV MCH RDW Plt Count Lymph % (Auto) [place] % (Auto) Eos % (Auto) Baso % (Auto) Lymph # Baso # Seg Neutrophils % Lymphocytes % (Manual) Monocytes % (Manual) Nucleated RBC % Seg Neutrophils # Seg Neutrophils # Man Monocytes # (Manual) PT INR Activated Clotting Time POC ABG pH POC ABG pCO2 POC ABG pO2 Sodium 149 H Potassium Chloride 111.1 H Carbon Dioxide 20 L BUN 27 H Creatinine 0.3 L Glucose 156 H POC Glucose 171 H 169 H Calcium 8.3 L Magnesium Direct Bilirubin AST ALT Alkaline Phosphatase Total Creatine Kinase CK-MB (CK-2) CK-MB (CK-2) Rel Index Troponin T C-Reactive Protein Total Protein Albumin Triglycerides Ur Specific [place] Urine WBC (Auto) Miscellaneous Test 04/16/17 04/17/17 04/17/17 17:03 00:00 05:09 WBC RBC Hgb Hct MCV MCH RDW Plt Count Lymph % (Auto) [place] % (Auto) Eos % (Auto) Baso % (Auto) Lymph # Baso # Seg Neutrophils % Lymphocytes % (Manual) Monocytes % (Manual) Nucleated RBC % Seg Neutrophils # Seg Neutrophils # Man Monocytes # (Manual) PT INR Activated Clotting Time POC ABG pH POC ABG pCO2 POC ABG pO2 Sodium Potassium Chloride Carbon Dioxide BUN Creatinine Glucose POC Glucose 151 H 165 H 145 H Calcium Magnesium Direct Bilirubin AST ALT Alkaline Phosphatase Total Creatine Kinase CK-MB (CK-2) CK-MB (CK-2) Rel Index Troponin T C-Reactive Protein Total Protein Albumin Triglycerides Ur Specific [place] Urine WBC (Auto) Miscellaneous Test 04/17/17 04/17/17 04/18/17 11:38 17:47 00:01 WBC RBC Hgb Hct MCV MCH RDW Plt Count Lymph % (Auto) [place] % (Auto) Eos % (Auto) Baso % (Auto) Lymph # Baso # Seg Neutrophils % Lymphocytes % (Manual) Monocytes % (Manual) Nucleated RBC % Seg Neutrophils # Seg Neutrophils # Man Monocytes # (Manual) PT INR Activated Clotting Time POC ABG pH POC ABG pCO2 POC ABG pO2 Sodium Potassium Chloride Carbon Dioxide BUN Creatinine Glucose POC Glucose 170 H 161 H 131 H Calcium Magnesium Direct Bilirubin AST ALT Alkaline Phosphatase Total Creatine Kinase CK-MB (CK-2) CK-MB (CK-2) Rel Index Troponin T C-Reactive Protein Total Protein Albumin Triglycerides Ur Specific [place] Urine WBC (Auto) Miscellaneous Test 04/18/17 04/18/17 04/18/17 03:55 03:55 05:30 WBC RBC 3.05 L Hgb 9.8 L Hct 29.0 L MCV 95 H MCH RDW Plt Count 113 L Lymph % (Auto) [place] % (Auto) Eos % (Auto) 5.3 H Baso % (Auto) Lymph # Baso # Seg Neutrophils % 71.5 H Lymphocytes % (Manual) Monocytes % (Manual) Nucleated RBC % Seg Neutrophils # Seg Neutrophils # Man Monocytes # (Manual) PT INR Activated Clotting Time POC ABG pH 7.460 H POC ABG pCO2 30.8 L POC ABG pO2 129 H Sodium Potassium Chloride Carbon Dioxide 21 L BUN 25 H Creatinine 0.4 L Glucose 123 H POC Glucose Calcium 8.3 L Magnesium Direct Bilirubin AST ALT Alkaline Phosphatase Total Creatine Kinase CK-MB (CK-2) CK-MB (CK-2) Rel Index Troponin T C-Reactive Protein Total Protein Albumin Triglycerides Ur Specific [place] Urine WBC (Auto) Miscellaneous Test 04/18/17 04/18/17 04/19/17 17:10 23:40 04:36 WBC RBC 3.21 L Hgb 10.2 L Hct 30.4 L MCV 95 H MCH RDW Plt Count 131 L Lymph % (Auto) 12.1 L [place] % (Auto) Eos % (Auto) 4.7 H Baso % (Auto) 2.4 H Lymph # 0.9 L Baso # 0.2 H Seg Neutrophils % 75.0 H Lymphocytes % (Manual) Monocytes % (Manual) Nucleated RBC % Seg Neutrophils # Seg Neutrophils # Man Monocytes # (Manual) PT INR Activated Clotting Time POC ABG pH POC ABG pCO2 POC ABG pO2 Sodium Potassium Chloride Carbon Dioxide BUN Creatinine Glucose POC Glucose 135 H 157 H Calcium Magnesium Direct Bilirubin AST ALT Alkaline Phosphatase Total Creatine Kinase CK-MB (CK-2) CK-MB (CK-2) Rel Index Troponin T C-Reactive Protein Total Protein Albumin Triglycerides Ur Specific [place] Urine WBC (Auto) Miscellaneous Test 04/19/17 04/19/17 04/19/17 04:36 05:12 06:50 WBC RBC Hgb Hct MCV MCH RDW Plt Count Lymph % (Auto) [place] % (Auto) Eos % (Auto) Baso % (Auto) Lymph # Baso # Seg Neutrophils % Lymphocytes % (Manual) Monocytes % (Manual) Nucleated RBC % Seg Neutrophils # Seg Neutrophils # Man Monocytes # (Manual) PT INR Activated Clotting Time POC ABG pH 7.516 H POC ABG pCO2 28.0 L POC ABG pO2 Sodium Potassium Chloride Carbon Dioxide 21 L BUN 23 H Creatinine 0.2 L Glucose 137 H POC Glucose 131 H Calcium 7.9 L Magnesium Direct Bilirubin AST ALT Alkaline Phosphatase Total Creatine Kinase CK-MB (CK-2) CK-MB (CK-2) Rel Index Troponin T C-Reactive Protein Total Protein Albumin Triglycerides Ur Specific [place] Urine WBC (Auto) Miscellaneous Test 04/19/17 04/19/17 04/20/17 12:36 17:42 00:12 WBC RBC Hgb Hct MCV MCH RDW Plt Count Lymph % (Auto) [place] % (Auto) Eos % (Auto) Baso % (Auto) Lymph # Baso # Seg Neutrophils % Lymphocytes % (Manual) Monocytes % (Manual) Nucleated RBC % Seg Neutrophils # Seg Neutrophils # Man Monocytes # (Manual) PT INR Activated Clotting Time POC ABG pH POC ABG pCO2 POC ABG pO2 Sodium Potassium Chloride Carbon Dioxide BUN Creatinine Glucose POC Glucose 128 H 140 H 132 H Calcium Magnesium Direct Bilirubin AST ALT Alkaline Phosphatase Total Creatine Kinase CK-MB (CK-2) CK-MB (CK-2) Rel Index Troponin T C-Reactive Protein Total Protein Albumin Triglycerides Ur Specific [place] Urine WBC (Auto) Miscellaneous Test 04/20/17 04/20/17 04/20/17 03:35 03:35 05:10 WBC RBC 3.34 L Hgb 10.4 L Hct 31.6 L MCV 95 H MCH RDW Plt Count Lymph % (Auto) 12.9 L [place] % (Auto) Eos % (Auto) Baso % (Auto) Lymph # Baso # Seg Neutrophils % 77.3 H Lymphocytes % (Manual) Monocytes % (Manual) Nucleated RBC % Seg Neutrophils # Seg Neutrophils # Man Monocytes # (Manual) PT INR Activated Clotting Time POC ABG pH POC ABG pCO2 POC ABG pO2 Sodium Potassium Chloride Carbon Dioxide BUN Creatinine 0.3 L Glucose 155 H POC Glucose 135 H Calcium 7.8 L Magnesium Direct Bilirubin AST ALT Alkaline Phosphatase Total Creatine Kinase CK-MB (CK-2) CK-MB (CK-2) Rel Index Troponin T C-Reactive Protein Total Protein Albumin Triglycerides Ur Specific [place] Urine WBC (Auto) Miscellaneous Test 04/20/17 04/20/17 04/21/17 12:49 18:21 00:05 WBC RBC Hgb Hct MCV MCH RDW Plt Count Lymph % (Auto) [place] % (Auto) Eos % (Auto) Baso % (Auto) Lymph # Baso # Seg Neutrophils % Lymphocytes % (Manual) Monocytes % (Manual) Nucleated RBC % Seg Neutrophils # Seg Neutrophils # Man Monocytes # (Manual) PT INR Activated Clotting Time POC ABG pH POC ABG pCO2 POC ABG pO2 Sodium Potassium Chloride Carbon Dioxide BUN Creatinine Glucose POC Glucose 155 H 165 H 141 H Calcium Magnesium Direct Bilirubin AST ALT Alkaline Phosphatase Total Creatine Kinase CK-MB (CK-2) CK-MB (CK-2) Rel Index Troponin T C-Reactive Protein Total Protein Albumin Triglycerides Ur Specific [place] Urine WBC (Auto) Miscellaneous Test 04/21/17 04/21/17 04/21/17 06:00 12:11 17:04 WBC RBC Hgb Hct MCV MCH RDW Plt Count Lymph % (Auto) [place] % (Auto) Eos % (Auto) Baso % (Auto) Lymph # Baso # Seg Neutrophils % Lymphocytes % (Manual) Monocytes % (Manual) Nucleated RBC % Seg Neutrophils # Seg Neutrophils # Man Monocytes # (Manual) PT INR Activated Clotting Time POC ABG pH POC ABG pCO2 POC ABG pO2 Sodium Potassium Chloride Carbon Dioxide BUN Creatinine Glucose POC Glucose 152 H 165 H 156 H Calcium Magnesium Direct Bilirubin AST ALT Alkaline Phosphatase Total Creatine Kinase CK-MB (CK-2) CK-MB (CK-2) Rel Index Troponin T C-Reactive Protein Total Protein Albumin Triglycerides Ur Specific [place] Urine WBC (Auto) Miscellaneous Test 04/21/17 04/21/17 04/22/17 22:00 23:59 05:49 WBC RBC Hgb Hct MCV MCH RDW Plt Count Lymph % (Auto) [place] % (Auto) Eos % (Auto) Baso % (Auto) Lymph # Baso # Seg Neutrophils % Lymphocytes % (Manual) Monocytes % (Manual) Nucleated RBC % Seg Neutrophils # Seg Neutrophils # Man Monocytes # (Manual) PT INR Activated Clotting Time POC ABG pH POC ABG pCO2 POC ABG pO2 Sodium Potassium Chloride Carbon Dioxide BUN Creatinine Glucose POC Glucose 166 H 173 H Calcium Magnesium Direct Bilirubin AST ALT Alkaline Phosphatase Total Creatine Kinase CK-MB (CK-2) CK-MB (CK-2) Rel Index Troponin T C-Reactive Protein Total Protein Albumin Triglycerides Ur Specific [place] Urine WBC (Auto) 10.0 H Miscellaneous Test 04/22/17 04/22/17 04/23/17 11:11 18:04 00:37 WBC RBC Hgb Hct MCV MCH RDW Plt Count Lymph % (Auto) [place] % (Auto) Eos % (Auto) Baso % (Auto) Lymph # Baso # Seg Neutrophils % Lymphocytes % (Manual) Monocytes % (Manual) Nucleated RBC % Seg Neutrophils # Seg Neutrophils # Man Monocytes # (Manual) PT INR Activated Clotting Time POC ABG pH POC ABG pCO2 POC ABG pO2 Sodium Potassium Chloride Carbon Dioxide BUN Creatinine Glucose POC Glucose 172 H 140 H 135 H Calcium Magnesium Direct Bilirubin AST ALT Alkaline Phosphatase Total Creatine Kinase CK-MB (CK-2) CK-MB (CK-2) Rel Index Troponin T C-Reactive Protein Total Protein Albumin Triglycerides Ur Specific [place] Urine WBC (Auto) Miscellaneous Test 04/23/17 04/23/17 04/23/17 05:33 06:20 11:10 WBC RBC 3.19 L Hgb 9.9 L Hct 30.0 L MCV MCH RDW Plt Count Lymph % (Auto) 8.0 L [place] % (Auto) Eos % (Auto) Baso % (Auto) Lymph # 0.8 L Baso # Seg Neutrophils % 84.5 H Lymphocytes % (Manual) Monocytes % (Manual) Nucleated RBC % Seg Neutrophils # 8.2 H Seg Neutrophils # Man Monocytes # (Manual) PT INR Activated Clotting Time POC ABG pH POC ABG pCO2 POC ABG pO2 Sodium Potassium Chloride Carbon Dioxide BUN Creatinine Glucose POC Glucose 134 H 134 H Calcium Magnesium Direct Bilirubin AST ALT Alkaline Phosphatase Total Creatine Kinase CK-MB (CK-2) CK-MB (CK-2) Rel Index Troponin T C-Reactive Protein Total Protein Albumin Triglycerides Ur Specific [place] Urine WBC (Auto) Miscellaneous Test 04/23/17 04/24/17 04/24/17 17:26 00:53 06:46 WBC RBC Hgb Hct MCV MCH RDW Plt Count Lymph % (Auto) [place] % (Auto) Eos % (Auto) Baso % (Auto) Lymph # Baso # Seg Neutrophils % Lymphocytes % (Manual) Monocytes % (Manual) Nucleated RBC % Seg Neutrophils # Seg Neutrophils # Man Monocytes # (Manual) PT INR Activated Clotting Time POC ABG pH POC ABG pCO2 POC ABG pO2 Sodium Potassium Chloride Carbon Dioxide BUN Creatinine Glucose POC Glucose 164 H 146 H 125 H Calcium Magnesium Direct Bilirubin AST ALT Alkaline Phosphatase Total Creatine Kinase CK-MB (CK-2) CK-MB (CK-2) Rel Index Troponin T C-Reactive Protein Total Protein Albumin Triglycerides Ur Specific [place] Urine WBC (Auto) Miscellaneous Test 04/24/17 04/24/17 04/24/17 11:55 17:50 23:36 WBC RBC Hgb Hct MCV MCH RDW Plt Count Lymph % (Auto) [place] % (Auto) Eos % (Auto) Baso % (Auto) Lymph # Baso # Seg Neutrophils % Lymphocytes % (Manual) Monocytes % (Manual) Nucleated RBC % Seg Neutrophils # Seg Neutrophils # Man Monocytes # (Manual) PT INR Activated Clotting Time POC ABG pH POC ABG pCO2 POC ABG pO2 Sodium Potassium Chloride Carbon Dioxide BUN Creatinine Glucose POC Glucose 156 H 146 H 131 H Calcium Magnesium Direct Bilirubin AST ALT Alkaline Phosphatase Total Creatine Kinase CK-MB (CK-2) CK-MB (CK-2) Rel Index Troponin T C-Reactive Protein Total Protein Albumin Triglycerides Ur Specific [place] Urine WBC (Auto) Miscellaneous Test 04/25/17 04/25/17 04/25/17 04:51 05:16 07:07 WBC RBC Hgb Hct MCV MCH RDW Plt Count Lymph % (Auto) [place] % (Auto) Eos % (Auto) Baso % (Auto) Lymph # Baso # Seg Neutrophils % Lymphocytes % (Manual) Monocytes % (Manual) Nucleated RBC % Seg Neutrophils # Seg Neutrophils # Man Monocytes # (Manual) PT INR Activated Clotting Time POC ABG pH POC ABG pCO2 POC ABG pO2 Sodium Potassium Chloride Carbon Dioxide BUN Creatinine Glucose POC Glucose 139 H Calcium Magnesium Direct Bilirubin AST 105 H ALT 204 H Alkaline Phosphatase 189 H Total Creatine Kinase CK-MB (CK-2) CK-MB (CK-2) Rel Index Troponin T C-Reactive Protein Total Protein Albumin 2.4 L Triglycerides Ur Specific [place] Urine WBC (Auto) Miscellaneous Test Flexitest 1 H 04/25/17 04/25/17 04/25/17 12:29 17:23 23:32 WBC RBC Hgb Hct MCV MCH RDW Plt Count Lymph % (Auto) [place] % (Auto) Eos % (Auto) Baso % (Auto) Lymph # Baso # Seg Neutrophils % Lymphocytes % (Manual) Monocytes % (Manual) Nucleated RBC % Seg Neutrophils # Seg Neutrophils # Man Monocytes # (Manual) PT INR Activated Clotting Time POC ABG pH POC ABG pCO2 POC ABG pO2 Sodium Potassium Chloride Carbon Dioxide BUN Creatinine Glucose POC Glucose 132 H 133 H 128 H Calcium Magnesium Direct Bilirubin AST ALT Alkaline Phosphatase Total Creatine Kinase CK-MB (CK-2) CK-MB (CK-2) Rel Index Troponin T C-Reactive Protein Total Protein Albumin Triglycerides Ur Specific [place] Urine WBC (Auto) Miscellaneous Test 04/26/17 04/26/17 04/26/17 05:24 11:28 17:09 WBC RBC Hgb Hct MCV MCH RDW Plt Count Lymph % (Auto) [place] % (Auto) Eos % (Auto) Baso % (Auto) Lymph # Baso # Seg Neutrophils % Lymphocytes % (Manual) Monocytes % (Manual) Nucleated RBC % Seg Neutrophils # Seg Neutrophils # Man Monocytes # (Manual) PT INR Activated Clotting Time POC ABG pH POC ABG pCO2 POC ABG pO2 Sodium Potassium Chloride Carbon Dioxide BUN Creatinine Glucose POC Glucose 132 H 146 H 141 H Calcium Magnesium Direct Bilirubin AST ALT Alkaline Phosphatase Total Creatine Kinase CK-MB (CK-2) CK-MB (CK-2) Rel Index Troponin T C-Reactive Protein Total Protein Albumin Triglycerides Ur Specific [place] Urine WBC (Auto) Miscellaneous Test 04/26/17 04/27/17 04/27/17 23:52 05:40 05:40 WBC RBC 3.22 L Hgb 10.0 L Hct 29.9 L MCV MCH RDW Plt Count Lymph % (Auto) [place] % (Auto) Eos % (Auto) Baso % (Auto) Lymph # Baso # Seg Neutrophils % 76.6 H Lymphocytes % (Manual) Monocytes % (Manual) Nucleated RBC % Seg Neutrophils # Seg Neutrophils # Man Monocytes # (Manual) PT INR Activated Clotting Time POC ABG pH POC ABG pCO2 POC ABG pO2 Sodium Potassium Chloride Carbon Dioxide BUN Creatinine Glucose POC Glucose 140 H Calcium Magnesium Direct Bilirubin AST 66 H ALT 137 H Alkaline Phosphatase 169 H Total Creatine Kinase CK-MB (CK-2) CK-MB (CK-2) Rel Index Troponin T C-Reactive Protein Total Protein 6.2 L Albumin 2.6 L Triglycerides Ur Specific [place] Urine WBC (Auto) Miscellaneous Test 04/27/17 04/27/17 04/27/17 05:40 06:10 11:13 WBC RBC Hgb Hct MCV MCH RDW Plt Count Lymph % (Auto) [place] % (Auto) Eos % (Auto) Baso % (Auto) Lymph # Baso # Seg Neutrophils % Lymphocytes % (Manual) Monocytes % (Manual) Nucleated RBC % Seg Neutrophils # Seg Neutrophils # Man Monocytes # (Manual) PT INR Activated Clotting Time POC ABG pH POC ABG pCO2 POC ABG pO2 Sodium Potassium Chloride Carbon Dioxide BUN Creatinine 0.2 L Glucose 139 H POC Glucose 130 H 151 H Calcium Magnesium Direct Bilirubin AST ALT Alkaline Phosphatase Total Creatine Kinase CK-MB (CK-2) CK-MB (CK-2) Rel Index Troponin T C-Reactive Protein Total Protein Albumin Triglycerides Ur Specific [place] Urine WBC (Auto) Miscellaneous Test 04/27/17 04/27/17 04/28/17 17:37 23:19 05:24 WBC RBC Hgb Hct MCV MCH RDW Plt Count Lymph % (Auto) [place] % (Auto) Eos % (Auto) Baso % (Auto) Lymph # Baso # Seg Neutrophils % Lymphocytes % (Manual) Monocytes % (Manual) Nucleated RBC % Seg Neutrophils # Seg Neutrophils # Man Monocytes # (Manual) PT INR Activated Clotting Time POC ABG pH POC ABG pCO2 POC ABG pO2 Sodium Potassium Chloride Carbon Dioxide BUN Creatinine Glucose POC Glucose 159 H 130 H 132 H Calcium Magnesium Direct Bilirubin AST ALT Alkaline Phosphatase Total Creatine Kinase CK-MB (CK-2) CK-MB (CK-2) Rel Index Troponin T C-Reactive Protein Total Protein Albumin Triglycerides Ur Specific [place] Urine WBC (Auto) Miscellaneous Test 04/28/17 04/28/17 04/28/17 11:15 17:38 23:23 WBC RBC Hgb Hct MCV MCH RDW Plt Count Lymph % (Auto) [place] % (Auto) Eos % (Auto) Baso % (Auto) Lymph # Baso # Seg Neutrophils % Lymphocytes % (Manual) Monocytes % (Manual) Nucleated RBC % Seg Neutrophils # Seg Neutrophils # Man Monocytes # (Manual) PT INR Activated Clotting Time POC ABG pH POC ABG pCO2 POC ABG pO2 Sodium Potassium Chloride Carbon Dioxide BUN Creatinine Glucose POC Glucose 162 H 133 H 138 H Calcium Magnesium Direct Bilirubin AST ALT Alkaline Phosphatase Total Creatine Kinase CK-MB (CK-2) CK-MB (CK-2) Rel Index Troponin T C-Reactive Protein Total Protein Albumin Triglycerides Ur Specific [place] Urine WBC (Auto) Miscellaneous Test 04/29/17 04/29/17 04/29/17 05:15 12:55 17:21 WBC RBC Hgb Hct MCV MCH RDW Plt Count Lymph % (Auto) [place] % (Auto) Eos % (Auto) Baso % (Auto) Lymph # Baso # Seg Neutrophils % Lymphocytes % (Manual) Monocytes % (Manual) Nucleated RBC % Seg Neutrophils # Seg Neutrophils # Man Monocytes # (Manual) PT INR Activated Clotting Time POC ABG pH POC ABG pCO2 POC ABG pO2 Sodium Potassium Chloride Carbon Dioxide BUN Creatinine Glucose POC Glucose 135 H 127 H 138 H Calcium Magnesium Direct Bilirubin AST ALT Alkaline Phosphatase Total Creatine Kinase CK-MB (CK-2) CK-MB (CK-2) Rel Index Troponin T C-Reactive Protein Total Protein Albumin Triglycerides Ur Specific [place] Urine WBC (Auto) Miscellaneous Test 04/29/17 04/30/17 04/30/17 23:52 04:55 12:22 WBC RBC Hgb Hct MCV MCH RDW Plt Count Lymph % (Auto) [place] % (Auto) Eos % (Auto) Baso % (Auto) Lymph # Baso # Seg Neutrophils % Lymphocytes % (Manual) Monocytes % (Manual) Nucleated RBC % Seg Neutrophils # Seg Neutrophils # Man Monocytes # (Manual) PT INR Activated Clotting Time POC ABG pH POC ABG pCO2 POC ABG pO2 Sodium Potassium Chloride Carbon Dioxide BUN Creatinine Glucose POC Glucose 142 H 146 H 132 H Calcium Magnesium Direct Bilirubin AST ALT Alkaline Phosphatase Total Creatine Kinase CK-MB (CK-2) CK-MB (CK-2) Rel Index Troponin T C-Reactive Protein Total Protein Albumin Triglycerides Ur Specific [place] Urine WBC (Auto) Miscellaneous Test 04/30/17 04/30/17 04/30/17 14:25 17:47 18:20 WBC RBC Hgb Hct MCV MCH RDW Plt Count Lymph % (Auto) [place] % (Auto) Eos % (Auto) Baso % (Auto) Lymph # Baso # Seg Neutrophils % Lymphocytes % (Manual) Monocytes % (Manual) Nucleated RBC % Seg Neutrophils # Seg Neutrophils # Man Monocytes # (Manual) PT INR Activated Clotting Time POC ABG pH 7.551 H POC ABG pCO2 32.7 L POC ABG pO2 Sodium Potassium Chloride Carbon Dioxide BUN 21 H Creatinine 0.2 L Glucose 141 H POC Glucose 139 H Calcium Magnesium Direct Bilirubin AST ALT Alkaline Phosphatase Total Creatine Kinase CK-MB (CK-2) CK-MB (CK-2) Rel Index Troponin T C-Reactive Protein Total Protein Albumin Triglycerides Ur Specific [place] Urine WBC (Auto) Miscellaneous Test 05/01/17 05/01/17 05/01/17 01:26 05:30 05:30 WBC RBC 3.49 L Hgb 10.3 L Hct 31.9 L MCV MCH RDW Plt Count Lymph % (Auto) [place] % (Auto) 8.1 H Eos % (Auto) Baso % (Auto) Lymph # Baso # Seg Neutrophils % 71.3 H Lymphocytes % (Manual) Monocytes % (Manual) Nucleated RBC % Seg Neutrophils # Seg Neutrophils # Man Monocytes # (Manual) PT INR Activated Clotting Time POC ABG pH POC ABG pCO2 POC ABG pO2 Sodium 136 L Potassium Chloride 97.6 L Carbon Dioxide BUN Creatinine 0.2 L Glucose 123 H POC Glucose 116 H Calcium Magnesium Direct Bilirubin AST 71 H ALT 125 H Alkaline Phosphatase 158 H Total Creatine Kinase CK-MB (CK-2) CK-MB (CK-2) Rel Index Troponin T C-Reactive Protein Total Protein Albumin 2.6 L Triglycerides Ur Specific [place] Urine WBC (Auto) Miscellaneous Test 05/01/17 05/01/17 05/02/17 11:59 17:23 00:08 WBC RBC Hgb Hct MCV MCH RDW Plt Count Lymph % (Auto) [place] % (Auto) Eos % (Auto) Baso % (Auto) Lymph # Baso # Seg Neutrophils % Lymphocytes % (Manual) Monocytes % (Manual) Nucleated RBC % Seg Neutrophils # Seg Neutrophils # Man Monocytes # (Manual) PT INR Activated Clotting Time POC ABG pH POC ABG pCO2 POC ABG pO2 Sodium Potassium Chloride Carbon Dioxide BUN Creatinine Glucose POC Glucose 118 H 144 H 122 H Calcium Magnesium Direct Bilirubin AST ALT Alkaline Phosphatase Total Creatine Kinase CK-MB (CK-2) CK-MB (CK-2) Rel Index Troponin T C-Reactive Protein Total Protein Albumin Triglycerides Ur Specific [place] Urine WBC (Auto) Miscellaneous Test 05/02/17 05/02/17 05/02/17 05:50 11:21 17:48 WBC RBC Hgb Hct MCV MCH RDW Plt Count Lymph % (Auto) [place] % (Auto) Eos % (Auto) Baso % (Auto) Lymph # Baso # Seg Neutrophils % Lymphocytes % (Manual) Monocytes % (Manual) Nucleated RBC % Seg Neutrophils # Seg Neutrophils # Man Monocytes # (Manual) PT INR Activated Clotting Time POC ABG pH POC ABG pCO2 POC ABG pO2 Sodium Potassium Chloride Carbon Dioxide BUN Creatinine Glucose POC Glucose 120 H 121 H 140 H Calcium Magnesium Direct Bilirubin AST ALT Alkaline Phosphatase Total Creatine Kinase CK-MB (CK-2) CK-MB (CK-2) Rel Index Troponin T C-Reactive Protein Total Protein Albumin Triglycerides Ur Specific [place] Urine WBC (Auto) Miscellaneous Test 05/02/17 05/03/17 05/03/17 23:12 05:35 11:52 WBC RBC Hgb Hct MCV MCH RDW Plt Count Lymph % (Auto) [place] % (Auto) Eos % (Auto) Baso % (Auto) Lymph # Baso # Seg Neutrophils % Lymphocytes % (Manual) Monocytes % (Manual) Nucleated RBC % Seg Neutrophils # Seg Neutrophils # Man Monocytes # (Manual) PT INR Activated Clotting Time POC ABG pH POC ABG pCO2 POC ABG pO2 Sodium Potassium Chloride Carbon Dioxide BUN Creatinine Glucose POC Glucose 128 H 113 H 126 H Calcium Magnesium Direct Bilirubin AST ALT Alkaline Phosphatase Total Creatine Kinase CK-MB (CK-2) CK-MB (CK-2) Rel Index Troponin T C-Reactive Protein Total Protein Albumin Triglycerides Ur Specific [place] Urine WBC (Auto) Miscellaneous Test 05/03/17 05/03/17 05/04/17 17:29 23:26 04:55 WBC RBC Hgb Hct MCV MCH RDW Plt Count Lymph % (Auto) [place] % (Auto) Eos % (Auto) Baso % (Auto) Lymph # Baso # Seg Neutrophils % Lymphocytes % (Manual) Monocytes % (Manual) Nucleated RBC % Seg Neutrophils # Seg Neutrophils # Man Monocytes # (Manual) PT INR Activated Clotting Time POC ABG pH POC ABG pCO2 POC ABG pO2 Sodium Potassium Chloride Carbon Dioxide BUN Creatinine Glucose POC Glucose 141 H 129 H 126 H Calcium Magnesium Direct Bilirubin AST ALT Alkaline Phosphatase Total Creatine Kinase CK-MB (CK-2) CK-MB (CK-2) Rel Index Troponin T C-Reactive Protein Total Protein Albumin Triglycerides Ur Specific [place] Urine WBC (Auto) Miscellaneous Test 05/04/17 05/04/17 05/05/17 12:09 17:46 00:06 WBC RBC Hgb Hct MCV MCH RDW Plt Count Lymph % (Auto) [place] % (Auto) Eos % (Auto) Baso % (Auto) Lymph # Baso # Seg Neutrophils % Lymphocytes % (Manual) Monocytes % (Manual) Nucleated RBC % Seg Neutrophils # Seg Neutrophils # Man Monocytes # (Manual) PT INR Activated Clotting Time POC ABG pH POC ABG pCO2 POC ABG pO2 Sodium Potassium Chloride Carbon Dioxide BUN Creatinine Glucose POC Glucose 125 H 125 H 110 H Calcium Magnesium Direct Bilirubin AST ALT Alkaline Phosphatase Total Creatine Kinase CK-MB (CK-2) CK-MB (CK-2) Rel Index Troponin T C-Reactive Protein Total Protein Albumin Triglycerides Ur Specific [place] Urine WBC (Auto) Miscellaneous Test 05/05/17 05/05/17 05/05/17 05:48 11:41 16:19 WBC RBC Hgb Hct MCV MCH RDW Plt Count Lymph % (Auto) [place] % (Auto) Eos % (Auto) Baso % (Auto) Lymph # Baso # Seg Neutrophils % Lymphocytes % (Manual) Monocytes % (Manual) Nucleated RBC % Seg Neutrophils # Seg Neutrophils # Man Monocytes # (Manual) PT INR Activated Clotting Time POC ABG pH POC ABG pCO2 POC ABG pO2 Sodium Potassium Chloride Carbon Dioxide BUN Creatinine Glucose POC Glucose 124 H 122 H 120 H Calcium Magnesium Direct Bilirubin AST ALT Alkaline Phosphatase Total Creatine Kinase CK-MB (CK-2) CK-MB (CK-2) Rel Index Troponin T C-Reactive Protein Total Protein Albumin Triglycerides Ur Specific [place] Urine WBC (Auto) Miscellaneous Test 05/06/17 05/06/17 05/06/17 00:16 05:47 11:42 WBC RBC Hgb Hct MCV MCH RDW Plt Count Lymph % (Auto) [place] % (Auto) Eos % (Auto) Baso % (Auto) Lymph # Baso # Seg Neutrophils % Lymphocytes % (Manual) Monocytes % (Manual) Nucleated RBC % Seg Neutrophils # Seg Neutrophils # Man Monocytes # (Manual) PT INR Activated Clotting Time POC ABG pH POC ABG pCO2 POC ABG pO2 Sodium Potassium Chloride Carbon Dioxide BUN Creatinine Glucose POC Glucose 110 H 142 H 120 H Calcium Magnesium Direct Bilirubin AST ALT Alkaline Phosphatase Total Creatine Kinase CK-MB (CK-2) CK-MB (CK-2) Rel Index Troponin T C-Reactive Protein Total Protein Albumin Triglycerides Ur Specific [place] Urine WBC (Auto) Miscellaneous Test 05/06/17 05/07/17 05/07/17 17:46 00:07 05:28 WBC RBC Hgb Hct MCV MCH RDW Plt Count Lymph % (Auto) [place] % (Auto) Eos % (Auto) Baso % (Auto) Lymph # Baso # Seg Neutrophils % Lymphocytes % (Manual) Monocytes % (Manual) Nucleated RBC % Seg Neutrophils # Seg Neutrophils # Man Monocytes # (Manual) PT INR Activated Clotting Time POC ABG pH POC ABG pCO2 POC ABG pO2 Sodium Potassium Chloride Carbon Dioxide BUN Creatinine Glucose POC Glucose 127 H 145 H 124 H Calcium Magnesium Direct Bilirubin AST ALT Alkaline Phosphatase Total Creatine Kinase CK-MB (CK-2) CK-MB (CK-2) Rel Index Troponin T C-Reactive Protein Total Protein Albumin Triglycerides Ur Specific [place] Urine WBC (Auto) Miscellaneous Test 05/07/17 05/07/1718 11:17 17:14 00:03 WBC RBC Hgb Hct MCV MCH RDW Plt Count Lymph % (Auto) [place] % (Auto) Eos % (Auto) Baso % (Auto) Lymph # Baso # Seg Neutrophils % Lymphocytes % (Manual) Monocytes % (Manual) Nucleated RBC % Seg Neutrophils # Seg Neutrophils # Man Monocytes # (Manual) PT INR Activated Clotting Time POC ABG pH POC ABG pCO2 POC ABG pO2 Sodium Potassium Chloride Carbon Dioxide BUN Creatinine Glucose POC Glucose 144 H 125 H 122 H Calcium Magnesium Direct Bilirubin AST ALT Alkaline Phosphatase Total Creatine Kinase CK-MB (CK-2) CK-MB (CK-2) Rel Index Troponin T C-Reactive Protein Total Protein Albumin Triglycerides Ur Specific [place] Urine WBC (Auto) Miscellaneous Test 05/08/17 05/08/17 05/08/17 05:43 12:07 18:02 WBC RBC Hgb Hct MCV MCH RDW Plt Count Lymph % (Auto) [place] % (Auto) Eos % (Auto) Baso % (Auto) Lymph # Baso # Seg Neutrophils % Lymphocytes % (Manual) Monocytes % (Manual) Nucleated RBC % Seg Neutrophils # Seg Neutrophils # Man Monocytes # (Manual) PT INR Activated Clotting Time POC ABG pH POC ABG pCO2 POC ABG pO2 Sodium Potassium Chloride Carbon Dioxide BUN Creatinine Glucose POC Glucose 117 H 114 H 129 H Calcium Magnesium Direct Bilirubin AST ALT Alkaline Phosphatase Total Creatine Kinase CK-MB (CK-2) CK-MB (CK-2) Rel Index Troponin T C-Reactive Protein Total Protein Albumin Triglycerides Ur Specific [place] Urine WBC (Auto) Miscellaneous Test 05/08/17 05/09/17 05/09/17 23:53 04:19 05:14 WBC RBC Hgb Hct MCV MCH RDW Plt Count Lymph % (Auto) [place] % (Auto) Eos % (Auto) Baso % (Auto) Lymph # Baso # Seg Neutrophils % Lymphocytes % (Manual) Monocytes % (Manual) Nucleated RBC % Seg Neutrophils # Seg Neutrophils # Man Monocytes # (Manual) PT INR Activated Clotting Time POC ABG pH 7.524 H POC ABG pCO2 34.7 L POC ABG pO2 107 H Sodium Potassium Chloride Carbon Dioxide BUN Creatinine Glucose POC Glucose 125 H 118 H Calcium Magnesium Direct Bilirubin AST ALT Alkaline Phosphatase Total Creatine Kinase CK-MB (CK-2) CK-MB (CK-2) Rel Index Troponin T C-Reactive Protein Total Protein Albumin Triglycerides Ur Specific [place] Urine WBC (Auto) Miscellaneous Test 05/10/17 05/11/17 05/11/17 23:54 05:48 23:50 WBC RBC Hgb Hct MCV MCH RDW Plt Count Lymph % (Auto) [place] % (Auto) Eos % (Auto) Baso % (Auto) Lymph # Baso # Seg Neutrophils % Lymphocytes % (Manual) Monocytes % (Manual) Nucleated RBC % Seg Neutrophils # Seg Neutrophils # Man Monocytes # (Manual) PT INR Activated Clotting Time POC ABG pH POC ABG pCO2 POC ABG pO2 Sodium Potassium Chloride Carbon Dioxide BUN Creatinine Glucose POC Glucose 126 H 137 H 130 H Calcium Magnesium Direct Bilirubin AST ALT Alkaline Phosphatase Total Creatine Kinase CK-MB (CK-2) CK-MB (CK-2) Rel Index Troponin T C-Reactive Protein Total Protein Albumin Triglycerides Ur Specific [place] Urine WBC (Auto) Miscellaneous Test 05/12/17 05/12/17 05/12/17 05:48 11:33 18:00 WBC RBC Hgb Hct MCV MCH RDW Plt Count Lymph % (Auto) [place] % (Auto) Eos % (Auto) Baso % (Auto) Lymph # Baso # Seg Neutrophils % Lymphocytes % (Manual) Monocytes % (Manual) Nucleated RBC % Seg Neutrophils # Seg Neutrophils # Man Monocytes # (Manual) PT INR Activated Clotting Time POC ABG pH POC ABG pCO2 POC ABG pO2 Sodium Potassium Chloride Carbon Dioxide BUN Creatinine Glucose POC Glucose 126 H 116 H 131 H Calcium Magnesium Direct Bilirubin AST ALT Alkaline Phosphatase Total Creatine Kinase CK-MB (CK-2) CK-MB (CK-2) Rel Index Troponin T C-Reactive Protein Total Protein Albumin Triglycerides Ur Specific [place] Urine WBC (Auto) Miscellaneous Test 05/14/17 05/15/17 05/15/17 11:45 11:27 17:42 WBC RBC Hgb Hct MCV MCH RDW Plt Count Lymph % (Auto) [place] % (Auto) Eos % (Auto) Baso % (Auto) Lymph # Baso # Seg Neutrophils % Lymphocytes % (Manual) Monocytes % (Manual) Nucleated RBC % Seg Neutrophils # Seg Neutrophils # Man Monocytes # (Manual) PT INR Activated Clotting Time POC ABG pH POC ABG pCO2 POC ABG pO2 Sodium Potassium Chloride Carbon Dioxide BUN Creatinine Glucose POC Glucose 123 H 129 H 125 H Calcium Magnesium Direct Bilirubin AST ALT Alkaline Phosphatase Total Creatine Kinase CK-MB (CK-2) CK-MB (CK-2) Rel Index Troponin T C-Reactive Protein Total Protein Albumin Triglycerides Ur Specific [place] Urine WBC (Auto) Miscellaneous Test 05/16/17 05/16/17 05/17/17 00:29 06:50 03:45 WBC RBC Hgb 11.7 L Hct 34.8 L MCV MCH RDW 15.5 H Plt Count Lymph % (Auto) [place] % (Auto) 7.7 H Eos % (Auto) Baso % (Auto) Lymph # Baso # Seg Neutrophils % 73.7 H Lymphocytes % (Manual) Monocytes % (Manual) Nucleated RBC % Seg Neutrophils # Seg Neutrophils # Man Monocytes # (Manual) PT INR Activated Clotting Time POC ABG pH POC ABG pCO2 POC ABG pO2 Sodium Potassium Chloride Carbon Dioxide BUN Creatinine Glucose POC Glucose 141 H 138 H Calcium Magnesium Direct Bilirubin AST ALT Alkaline Phosphatase Total Creatine Kinase CK-MB (CK-2) CK-MB (CK-2) Rel Index Troponin T C-Reactive Protein Total Protein Albumin Triglycerides Ur Specific [place] Urine WBC (Auto) Miscellaneous Test 05/17/17 05/20/17 05/23/17 03:45 17:31 23:09 WBC RBC Hgb Hct MCV MCH RDW Plt Count Lymph % (Auto) [place] % (Auto) Eos % (Auto) Baso % (Auto) Lymph # Baso # Seg Neutrophils % Lymphocytes % (Manual) Monocytes % (Manual) Nucleated RBC % Seg Neutrophils # Seg Neutrophils # Man Monocytes # (Manual) PT INR Activated Clotting Time POC ABG pH POC ABG pCO2 POC ABG pO2 Sodium Potassium Chloride Carbon Dioxide BUN Creatinine 0.2 L Glucose 131 H POC Glucose 116 H 122 H Calcium Magnesium Direct Bilirubin AST ALT Alkaline Phosphatase Total Creatine Kinase CK-MB (CK-2) CK-MB (CK-2) Rel Index Troponin T C-Reactive Protein Total Protein Albumin Triglycerides Ur Specific [place] Urine WBC (Auto) Miscellaneous Test
[2017-05-24] MEDS: CORDARONE PO SCH ×2 (11:39→23:13)
[2017-05-24] MEDS: ELIQUIS PO SCH ×2 (11:40→22:50)
[2017-05-24] MEDS: ZESTRIL PO SCH (11:40)
[2017-05-24] MEDS: ASPIRIN PO SCH (11:40)
[2017-05-24] MEDS: LOPRESSOR PO SCH ×2 (11:40→23:14)
[2017-05-24] MEDS: PLAVIX PO SCH (11:40)
[2017-05-24] MEDS: PROTONIX FEEDTUBE SCH (11:40)
--- NOTE | 2017-05-24 18:50 | Progress Note ---
Assessment and Plan Assessment and plan: Severe Anoxic encephalopathy. Acute Hypoxic resp failure s/p Trach Acute Anterior STEMI s/p cath s/p Cardiac arrest MRSA Pneumonia s/p treatment. Adult Failure to thrive Severe protein calorie Malnutrition Prognosis guarded Full code status Adult FTT Plan continue current mgt plan aspiration precuations at all times am labs further pt mgt per hospital course DVT and GI ulcer prophylaxis 25 mins History Interval history: A 46 y/o male admitted post cardiac arrest. RN by bedside. No family present. Med records reviewed at length. The specialists documentations reviewed, inputs and reccs appreciated Hospitalist Physical - Constitutional Vitals: Temp Pulse Resp BP Pulse Ox 98.2 F 68 21 103/61 100 05/24/17 16:00 05/24/17 18:00 05/24/17 18:00 05/24/17 18:00 05/24/17 18:00 General appearance: Present: no acute distress, well-nourished, other ( tracheostomy on vent) - EENT Eyes: Present: PERRL ENT: other (mmm) - Neck Neck: Present: supple, other (Trach) - Respiratory Respiratory: bilateral: diminished, rhonchi, negative: other (transmitted AE.) - Cardiovascular Rhythm: regular Heart Sounds: Present: S1 & S2 - Extremities Extremities: no ischemia, pulses intact, pulses symmetrical Peripheral Pulses: within normal limits - Abdominal General gastrointestinal: soft, non-distended, normal bowel sounds - Integumentary Integumentary: Present: clear, warm - Psychiatric Psychiatric: other (ANOXIC , unable to assess) - Neurologic Neurologic: other (unable to assess) - Allied Health Allied health notes reviewed: nursing, social work, case management Results - Labs CBC & Chem 7: 05/17/17 03:45 05/17/17 03:45 Labs: Laboratory Last Values WBC 9.4 K/mm3 (4.5-11.0) 05/17/17 03:45 RBC 3.85 M/mm3 (3.65-5.03) 05/17/17 03:45 Hgb 11.7 gm/dl (11.8-15.2) L 05/17/17 03:45 Hct 34.8 % (35.5-45.6) L 05/17/17 03:45 MCV 90 fl (84-94) 05/17/17 03:45 MCH 31 pg (28-32) 05/17/17 03:45 MCHC 34 % (32-34) 05/17/17 03:45 RDW 15.5 % (13.2-15.2) H 05/17/17 03:45 Plt Count 289 K/mm3 (140-440) 05/17/17 03:45 Lymph % (Auto) 15.6 % (13.4-35.0) 05/17/17 03:45 [place] % (Auto) 7.7 % (0.0-7.3) H 05/17/17 03:45 Eos % (Auto) 2.7 % (0.0-4.3) 05/17/17 03:45 Baso % (Auto) 0.3 % (0.0-1.8) 05/17/17 03:45 Lymph # 1.5 K/mm3 (1.2-5.4) 05/17/17 03:45 Price # 0.7 K/mm3 (0.0-0.8) 05/17/17 03:45 Eos # 0.3 K/mm3 (0.0-0.4) 05/17/17 03:45 Baso # 0.0 K/mm3 (0.0-0.1) 05/17/17 03:45 Add Manual Diff Complete 03/30/17 03:50 Total Counted 100 03/30/17 03:50 Seg Neutrophils % 73.7 % (40.0-70.0) H 05/17/17 03:45 Seg Neuts % (Manual) 65.0 % (40.0-70.0) 03/30/17 03:50 Band Neutrophils % 17.0 % 03/30/17 03:50 Lymphocytes % (Manual) 7.0 % (13.4-35.0) L 03/30/17 03:50 Reactive Lymphs % (Man) 0 % 03/30/17 03:50 Monocytes % (Manual) 7.0 % (0.0-7.3) 03/30/17 03:50 Eosinophils % (Manual) 0 % (0.0-4.3) 03/30/17 03:50 Basophils % (Manual) 0 % (0.0-1.8) 03/30/17 03:50 Metamyelocytes % 4.0 % 03/30/17 03:50 Myelocytes % 0 % 03/30/17 03:50 Promyelocytes % 0 % 03/30/17 03:50 Blast Cells % 0 % 03/30/17 03:50 Nucleated RBC % Not Reportable 03/30/17 03:50 Seg Neutrophils # 6.9 K/mm3 (1.8-7.7) 05/17/17 03:45 Seg Neutrophils # Man 12.7 K/mm3 (1.8-7.7) H 03/30/17 03:50 Band Neutrophils # 3.3 K/mm3 03/30/17 03:50 Lymphocytes # (Manual) 1.4 K/mm3 (1.2-5.4) 03/30/17 03:50 Abs React Lymphs (Man) 0.0 K/mm3 03/30/17 03:50 Monocytes # (Manual) 1.4 K/mm3 (0.0-0.8) H 03/30/17 03:50 Eosinophils # (Manual) 0.0 K/mm3 (0.0-0.4) 03/30/17 03:50 Basophils # (Manual) 0.0 K/mm3 (0.0-0.1) 03/30/17 03:50 Metamyelocytes # 0.8 K/mm3 03/30/17 03:50 Myelocytes # 0.0 K/mm3 03/30/17 03:50 Promyelocytes # 0.0 K/mm3 03/30/17 03:50 Blast Cells # 0.0 K/mm3 03/30/17 03:50 WBC Morphology Not Reportable 03/30/17 03:50 Hypersegmented Neuts Not Reportable 03/30/17 03:50 Hyposegmented Neuts Not Reportable 03/30/17 03:50 Hypogranular Neuts Not Reportable 03/30/17 03:50 Smudge Cells Not Reportable 03/30/17 03:50 Toxic Granulation Not Reportable 03/30/17 03:50 Toxic Vacuolation Not Reportable 03/30/17 03:50 Dohle Bodies Not Reportable 03/30/17 03:50 Pelger-Huet Anomaly Not Reportable 03/30/17 03:50 Sherry Rods Not Reportable 03/30/17 03:50 Platelet Estimate Appears normal 03/30/17 03:50 Clumped Platelets Not Reportable 03/30/17 03:50 Plt Clumps, EDTA Not Reportable 03/30/17 03:50 Large Platelets Not Reportable 03/30/17 03:50 Giant Platelets Not Reportable 03/30/17 03:50 Platelet Satelliting Not Reportable 03/30/17 03:50 Plt Morphology Comment Not Reportable 03/30/17 03:50 RBC Morphology Not Reportable 03/30/17 03:50 Dimorphic RBCs Not Reportable 03/30/17 03:50 Polychromasia Not Reportable 03/30/17 03:50 Hypochromasia Not Reportable 03/30/17 03:50 Poikilocytosis Not Reportable 03/30/17 03:50 Anisocytosis Few 03/30/17 03:50 Microcytosis Not Reportable 03/30/17 03:50 Macrocytosis Not Reportable 03/30/17 03:50 Spherocytes Not Reportable 03/30/17 03:50 Pappenheimer Bodies Not Reportable 03/30/17 03:50 Sickle Cells Not Reportable 03/30/17 03:50 Target Cells Not Reportable 03/30/17 03:50 Tear Drop Cells Not Reportable 03/30/17 03:50 Ovalocytes Not Reportable 03/30/17 03:50 Helmet Cells Not Reportable 03/30/17 03:50 Tamayo-Elfrida Bodies Not Reportable 03/30/17 03:50 [place] Rings Not Reportable 03/30/17 03:50 Nusrat Cells Not Reportable 03/30/17 03:50 Bite Cells Not Reportable 03/30/17 03:50 Crenated Cell Not Reportable 03/30/17 03:50 Elliptocytes Not Reportable 03/30/17 03:50 Acanthocytes (Spur) Not Reportable 03/30/17 03:50 Rouleaux Not Reportable 03/30/17 03:50 Hemoglobin C Crystals Not Reportable 03/30/17 03:50 Schistocytes Not Reportable 03/30/17 03:50 Malaria parasites Not Reportable 03/30/17 03:50 Jermaine Bodies Not Reportable 03/30/17 03:50 Hem Pathologist Commnt No 03/30/17 03:50 PT 14.9 Sec. (12.2-14.9) 04/10/17 04:16 INR 1.11 (0.87-1.13) 04/10/17 04:16 APTT 27.8 Sec. (24.2-36.6) 04/10/17 04:16 Activated Clotting Time 92 (74-137) 03/29/17 17:47 POC ABG pH 7.524 (7.35-7.45) H 05/09/17 04:19 POC ABG pCO2 34.7 (35-45) L 05/09/17 04:19 POC ABG pO2 107 (80-105) H 05/09/17 04:19 POC ABG HCO3 28.6 05/09/17 04:19 POC ABG Total CO2 30 05/09/17 04:19 POC ABG O2 Sat 99 05/09/17 04:19 POC ABG Base Excess 6 05/09/17 04:19 FiO2 25 % 05/09/17 04:19 Sodium 140 mmol/L (137-145) 05/17/17 03:45 Potassium 3.8 mmol/L (3.6-5.0) 05/17/17 03:45 Chloride 100.5 mmol/L (98-107) 05/17/17 03:45 Carbon Dioxide 25 mmol/L (22-30) 05/17/17 03:45 Anion Gap 18 mmol/L 05/17/17 03:45 BUN 17 mg/dL (9-20) 05/17/17 03:45 Creatinine 0.2 mg/dL (0.8-1.5) L 05/17/17 03:45 Estimated GFR > 60 ml/min 05/17/17 03:45 BUN/Creatinine Ratio 85 % 05/17/17 03:45 Glucose 131 mg/dL (75-100) H 05/17/17 03:45 POC Glucose 122 (70-105) H 05/23/17 23:09 Calcium 9.1 mg/dL (8.4-10.2) 05/17/17 03:45 Phosphorus 3.50 mg/dL (2.5-4.5) 04/13/17 04:45 Magnesium 1.80 mg/dL (1.7-2.3) 05/01/17 05:30 Total Bilirubin 0.60 mg/dL (0.1-1.2) 05/01/17 05:30 Direct Bilirubin < 0.2 mg/dL (0-0.2) 04/27/17 05:40 Indirect Bilirubin 0.3 mg/dL 04/25/17 04:51 AST 71 units/L (5-40) H 05/01/17 05:30 ALT 125 units/L (7-56) H 05/01/17 05:30 Alkaline Phosphatase 158 units/L (35-129) H 05/01/17 05:30 Total Creatine Kinase 1404 units/L (55-170) H 04/12/17 21:36 CK-MB (CK-2) 8.0 ng/mL (0.0-4.0) H 04/12/17 21:36 CK-MB (CK-2) Rel Index 0.5 (0-4) 04/12/17 21:36 Troponin T 0.767 ng/mL (0.00-0.029) H* 04/12/17 21:36 C-Reactive Protein 21.80 mg/dL (0.00-1.30) H 03/30/17 16:04 Total Protein 6.7 g/dL (6.3-8.2) 05/01/17 05:30 Albumin 2.6 g/dL (3.9-5) L 05/01/17 05:30 Albumin/Globulin Ratio 0.6 % 05/01/17 05:30 Triglycerides 151 mg/dL (2-149) H 04/01/17 04:29 Cholesterol 164 mg/dL (50-199) 03/29/17 19:52 LDL Cholesterol Direct 81 mg/dL (50-130) 03/29/17 19:52 HDL Cholesterol 44 mg/dL (40-59) 03/29/17 19:52 Cholesterol/HDL Ratio 3.72 % 03/29/17 19:52 Urine Color [place] (Yellow) 04/21/17 22:00 Urine Turbidity Clear (Clear) 04/21/17 22:00 Urine pH 5.0 (5.0-7.0) 04/21/17 22:00 Ur Specific [place] 1.029 (1.003-1.030) 04/21/17 22:00 Urine Protein 30 mg/dl mg/dL (Negative) 04/21/17 22:00 Urine Glucose (UA) Neg mg/dL (Negative) 04/21/17 22:00 Urine Ketones Neg mg/dL (Negative) 04/21/17 22:00 Urine Blood Mod (Negative) 04/21/17 22:00 Urine Nitrite Neg (Negative) 04/21/17 22:00 Urine Bilirubin Neg (Negative) 04/21/17 22:00 Urine Urobilinogen 4.0 mg/dL (<2.0) 04/21/17 22:00 Ur Leukocyte Esterase Neg (Negative) 04/21/17 22:00 Urine WBC (Auto) 10.0 /HPF (0.0-6.0) H 04/21/17 22:00 Urine RBC (Auto) 44.0 /HPF (0.0-6.0) 04/21/17 22:00 U Epithel Cells (Auto) < 1.0 /HPF (0-13.0) 04/21/17 22:00 Amorphous Crystals 1+ 03/30/17 09:45 Urine Mucus 3+ /HPF 04/21/17 22:00 Urine Opiates Screen Presumptive negative 03/30/17 09:45 Urine Methadone Screen Presumptive negative 03/30/17 09:45 Ur Barbiturates Screen Presumptive negative 03/30/17 09:45 Ur Phencyclidine Scrn Presumptive negative 03/30/17 09:45 Ur Amphetamines Screen Presumptive positive 03/30/17 09:45 U Benzodiazepines Scrn Presumptive positive 03/30/17 09:45 Urine Cocaine Screen Presumptive negative 03/30/17 09:45 U Marijuana (THC) Screen Presumptive negative 03/30/17 09:45 Drugs of Abuse Note Disclamer 03/30/17 09:45 Miscellaneous Test Flexitest 1 H 04/25/17 07:07 Blood Type O POSITIVE 03/29/17 11:35 Antibody Screen Negative 03/29/17 11:35 - Imaging and Cardiology EKG: report reviewed Chest x-ray: report reviewed CT Scan - head: report reviewed
[2017-05-25] MEDS: ELIQUIS PO SCH ×2 (10:02→22:11)
[2017-05-25] MEDS: ASPIRIN PO SCH (10:02)
[2017-05-25] MEDS: PLAVIX PO SCH (10:02)
[2017-05-25] MEDS: PROTONIX FEEDTUBE SCH (10:03)
[2017-05-25] MEDS: CORDARONE PO SCH ×2 (10:03→22:12)
[2017-05-25] MEDS: ZESTRIL PO SCH (10:04)
[2017-05-25] MEDS: LOPRESSOR PO SCH (10:04)
--- NOTE | 2017-05-25 11:07 | Progress Note ---
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 No new recommendations for today. Patient remains full code and will continue PSV as tolerated with hopes of weaning to T-piece 1. PSV as tolerated with a goal to get to T-piece 2. Once tolerates T-piece for 24 hours, can consider transfer to floor, this is highly unlikely. 3. reviewed neurology note and agree with assessment 4. Continue all other cardiac meds 5. Overall prognosis still remains poor given amount of downtime during arrest. 6. Family meeting held, they feel the patient will overcome this current state as they have had other family members do the same. Very in depth conversation about the prognosis and current clinical state. I've made my best attempt to help them understand. Neuro agrees. Will continue supportive measures and attempt to wean. CCT 31 minutes. Subjective Date of service: 05/25/17 Principal diagnosis: coma,ARV,s/p arrest Interval history: No acute events. Mental state is unchanged. Objective Vital Signs - 12hr 05/24/17 05/25/17 05/25/17 23:14 00:00 00:25 Temperature 99.4 F Pulse Rate 67 74 Pulse Rate [ From Monitor] Respiratory 18 16 Rate Blood Pressure 94/68 94/68 O2 Sat by Pulse 99 100 Oximetry O2 Sat by Pulse Oximetry [ Assessment] 05/25/17 05/25/17 05/25/17 01:00 01:37 02:00 Temperature Pulse Rate 67 70 76 Pulse Rate [ From Monitor] Respiratory 18 23 22 Rate Blood Pressure 100/65 100/65 99/61 O2 Sat by Pulse 100 100 100 Oximetry O2 Sat by Pulse Oximetry [ Assessment] 05/25/17 05/25/17 05/25/17 03:00 04:00 04:27 Temperature 98.9 F Pulse Rate 72 71 73 Pulse Rate [ From Monitor] Respiratory 17 18 Rate Blood Pressure 96/55 88/51 88/51 O2 Sat by Pulse 100 100 100 Oximetry O2 Sat by Pulse Oximetry [ Assessment] 05/25/17 05/25/17 05/25/17 05:00 06:00 07:00 Temperature Pulse Rate 64 66 70 Pulse Rate [ From Monitor] Respiratory 16 17 13 Rate Blood Pressure 97/63 92/50 97/59 O2 Sat by Pulse 100 100 100 Oximetry O2 Sat by Pulse 100 Oximetry [ Assessment] 05/25/17 05/25/17 05/25/17 08:00 09:00 09:01 Temperature 98.3 F Pulse Rate 77 64 67 Pulse Rate [ 90 From Monitor] Respiratory 17 13 Rate Blood Pressure 98/66 91/60 98/66 O2 Sat by Pulse 100 100 100 Oximetry O2 Sat by Pulse Oximetry [ Assessment] 05/25/17 05/25/17 05/25/17 09:04 10:00 10:04 Temperature Pulse Rate 77 71 Pulse Rate [ From Monitor] Respiratory 23 Rate Blood Pressure 100/55 91/40 O2 Sat by Pulse 100 Oximetry O2 Sat by Pulse 100 Oximetry [ Assessment] Constitutional: no acute distress, comatose Eyes: non-icteric ENT: oropharynx moist Neck: supple, other (tracheotomy ) Effort: normal Ascultation: Bilateral: clear, diminished breath sounds, other (coarse BS bilaterally) Percussion: Bilateral: not dull Cardiovascular: regular rate and rhythm Gastrointestinal: normoactive bowel sounds, soft, non-tender, non-distended Integumentary: normal Extremities: no cyanosis, no edema, pink and warm Neurologic: other (nonresponsive with flaccid extremities) Psychiatric: other (eyes open spontaneously but does not follow any voice commands, otherwise nonresponsive except for pain) CBC and BMP: 05/17/17 03:45 05/17/17 03:45 ABG, PT/INR, D-dimer: ABG POC ABG pH 7.524 (7.35-7.45) H 05/09/17 04:19 POC ABG pCO2 34.7 (35-45) L 05/09/17 04:19 POC ABG pO2 107 (80-105) H 05/09/17 04:19 POC ABG HCO3 28.6 05/09/17 04:19 POC ABG Total CO2 30 05/09/17 04:19 POC ABG O2 Sat 99 05/09/17 04:19 PT/INR, D-dimer PT 14.9 Sec. (12.2-14.9) 04/10/17 04:16 INR 1.11 (0.87-1.13) 04/10/17 04:16 Abnormal lab findings: Abnormal Labs 03/29/17 03/29/17 03/29/17 11:35 11:35 11:40 WBC RBC Hgb Hct MCV 98 H MCH 33 H RDW Plt Count Lymph % (Auto) [place] % (Auto) Eos % (Auto) Baso % (Auto) Lymph # Baso # Seg Neutrophils % Lymphocytes % (Manual) Monocytes % (Manual) 9.0 H Nucleated RBC % 1.0 H Seg Neutrophils # Seg Neutrophils # Man Monocytes # (Manual) 0.9 H PT 15.8 H INR 1.20 H Activated Clotting Time POC ABG pH POC ABG pCO2 POC ABG pO2 Sodium Potassium 2.7 L* Chloride 95.3 L Carbon Dioxide 17 L BUN Creatinine Glucose 435 H POC Glucose Calcium Magnesium Direct Bilirubin AST ALT Alkaline Phosphatase Total Creatine Kinase CK-MB (CK-2) CK-MB (CK-2) Rel Index Troponin T C-Reactive Protein Total Protein 6.1 L Albumin 3.5 L Triglycerides Ur Specific [place] Urine WBC (Auto) Miscellaneous Test 03/29/17 03/29/17 03/29/17 12:34 13:10 13:25 WBC RBC Hgb Hct MCV MCH RDW Plt Count Lymph % (Auto) [place] % (Auto) Eos % (Auto) Baso % (Auto) Lymph # Baso # Seg Neutrophils % Lymphocytes % (Manual) Monocytes % (Manual) Nucleated RBC % Seg Neutrophils # Seg Neutrophils # Man Monocytes # (Manual) PT INR Activated Clotting Time 142 H 169 H 175 H POC ABG pH POC ABG pCO2 POC ABG pO2 Sodium Potassium Chloride Carbon Dioxide BUN Creatinine Glucose POC Glucose Calcium Magnesium Direct Bilirubin AST ALT Alkaline Phosphatase Total Creatine Kinase CK-MB (CK-2) CK-MB (CK-2) Rel Index Troponin T C-Reactive Protein Total Protein Albumin Triglycerides Ur Specific [place] Urine WBC (Auto) Miscellaneous Test 03/29/17 03/29/17 03/29/17 14:50 15:18 19:52 WBC RBC Hgb Hct MCV MCH RDW Plt Count Lymph % (Auto) [place] % (Auto) Eos % (Auto) Baso % (Auto) Lymph # Baso # Seg Neutrophils % Lymphocytes % (Manual) Monocytes % (Manual) Nucleated RBC % Seg Neutrophils # Seg Neutrophils # Man Monocytes # (Manual) PT INR Activated Clotting Time 175 H POC ABG pH 7.293 L POC ABG pCO2 POC ABG pO2 602 H Sodium Potassium Chloride Carbon Dioxide BUN Creatinine Glucose POC Glucose Calcium Magnesium Direct Bilirubin AST ALT Alkaline Phosphatase Total Creatine Kinase 7263 H CK-MB (CK-2) > 300.0 H CK-MB (CK-2) Rel Index 4.1 H Troponin T 8.080 H* D C-Reactive Protein Total Protein Albumin Triglycerides 195 H Ur Specific [place] Urine WBC (Auto) Miscellaneous Test 03/30/17 03/30/17 03/30/17 03:50 03:50 06:19 WBC 19.5 H RBC Hgb Hct MCV MCH RDW Plt Count Lymph % (Auto) [place] % (Auto) Eos % (Auto) Baso % (Auto) Lymph # Baso # Seg Neutrophils % Lymphocytes % (Manual) 7.0 L Monocytes % (Manual) Nucleated RBC % Seg Neutrophils # Seg Neutrophils # Man 12.7 H Monocytes # (Manual) 1.4 H PT INR Activated Clotting Time POC ABG pH POC ABG pCO2 28.2 L POC ABG pO2 108 H Sodium Potassium Chloride 108.9 H Carbon Dioxide 15 L BUN 25 H Creatinine Glucose 158 H POC Glucose Calcium 8.1 L Magnesium Direct Bilirubin AST ALT Alkaline Phosphatase Total Creatine Kinase 7963 H CK-MB (CK-2) > 300.0 H CK-MB (CK-2) Rel Index Troponin T 6.850 H* C-Reactive Protein Total Protein Albumin Triglycerides Ur Specific [place] Urine WBC (Auto) Miscellaneous Test 03/30/17 03/30/17 03/31/17 09:45 16:04 02:19 WBC RBC Hgb Hct MCV MCH RDW Plt Count Lymph % (Auto) [place] % (Auto) Eos % (Auto) Baso % (Auto) Lymph # Baso # Seg Neutrophils % Lymphocytes % (Manual) Monocytes % (Manual) Nucleated RBC % Seg Neutrophils # Seg Neutrophils # Man Monocytes # (Manual) PT INR Activated Clotting Time POC ABG pH POC ABG pCO2 POC ABG pO2 Sodium Potassium Chloride Carbon Dioxide BUN Creatinine Glucose POC Glucose 137 H Calcium Magnesium Direct Bilirubin AST ALT Alkaline Phosphatase Total Creatine Kinase CK-MB (CK-2) CK-MB (CK-2) Rel Index Troponin T C-Reactive Protein 21.80 H Total Protein Albumin Triglycerides Ur Specific [place] 1.031 H Urine WBC (Auto) Miscellaneous Test 03/31/17 03/31/17 03/31/17 03:57 06:54 09:22 WBC RBC Hgb Hct MCV MCH RDW Plt Count Lymph % (Auto) [place] % (Auto) Eos % (Auto) Baso % (Auto) Lymph # Baso # Seg Neutrophils % Lymphocytes % (Manual) Monocytes % (Manual) Nucleated RBC % Seg Neutrophils # Seg Neutrophils # Man Monocytes # (Manual) PT INR Activated Clotting Time POC ABG pH 7.475 H POC ABG pCO2 25.4 L POC ABG pO2 62 L Sodium Potassium Chloride Carbon Dioxide 19 L BUN 22 H Creatinine 0.6 L Glucose 148 H POC Glucose 143 H Calcium 8.3 L Magnesium Direct Bilirubin AST ALT Alkaline Phosphatase Total Creatine Kinase CK-MB (CK-2) CK-MB (CK-2) Rel Index Troponin T C-Reactive Protein Total Protein Albumin Triglycerides Ur Specific [place] Urine WBC (Auto) Miscellaneous Test 03/31/17 03/31/17 03/31/17 11:40 17:47 23:38 WBC RBC Hgb Hct MCV MCH RDW Plt Count Lymph % (Auto) [place] % (Auto) Eos % (Auto) Baso % (Auto) Lymph # Baso # Seg Neutrophils % Lymphocytes % (Manual) Monocytes % (Manual) Nucleated RBC % Seg Neutrophils # Seg Neutrophils # Man Monocytes # (Manual) PT INR Activated Clotting Time POC ABG pH POC ABG pCO2 POC ABG pO2 Sodium Potassium Chloride Carbon Dioxide BUN Creatinine Glucose POC Glucose 127 H 137 H 148 H Calcium Magnesium Direct Bilirubin AST ALT Alkaline Phosphatase Total Creatine Kinase CK-MB (CK-2) CK-MB (CK-2) Rel Index Troponin T C-Reactive Protein Total Protein Albumin Triglycerides Ur Specific [place] Urine WBC (Auto) Miscellaneous Test 04/01/17 04/01/17 04/01/17 04:29 05:01 11:54 WBC RBC Hgb Hct MCV MCH RDW Plt Count Lymph % (Auto) [place] % (Auto) Eos % (Auto) Baso % (Auto) Lymph # Baso # Seg Neutrophils % Lymphocytes % (Manual) Monocytes % (Manual) Nucleated RBC % Seg Neutrophils # Seg Neutrophils # Man Monocytes # (Manual) PT INR Activated Clotting Time POC ABG pH 7.513 H POC ABG pCO2 22.1 L POC ABG pO2 64 L Sodium Potassium Chloride Carbon Dioxide BUN Creatinine Glucose POC Glucose 121 H Calcium Magnesium Direct Bilirubin AST ALT Alkaline Phosphatase Total Creatine Kinase CK-MB (CK-2) CK-MB (CK-2) Rel Index Troponin T C-Reactive Protein Total Protein Albumin Triglycerides 151 H Ur Specific [place] Urine WBC (Auto) Miscellaneous Test 04/01/17 04/02/17 04/02/17 18:17 00:11 04:52 WBC RBC Hgb Hct MCV MCH RDW Plt Count Lymph % (Auto) [place] % (Auto) Eos % (Auto) Baso % (Auto) Lymph # Baso # Seg Neutrophils % Lymphocytes % (Manual) Monocytes % (Manual) Nucleated RBC % Seg Neutrophils # Seg Neutrophils # Man Monocytes # (Manual) PT INR Activated Clotting Time POC ABG pH 7.524 H POC ABG pCO2 25.5 L POC ABG pO2 66 L Sodium Potassium Chloride Carbon Dioxide BUN Creatinine Glucose POC Glucose 117 H 122 H Calcium Magnesium Direct Bilirubin AST ALT Alkaline Phosphatase Total Creatine Kinase CK-MB (CK-2) CK-MB (CK-2) Rel Index Troponin T C-Reactive Protein Total Protein Albumin Triglycerides Ur Specific [place] Urine WBC (Auto) Miscellaneous Test 04/02/17 04/02/17 04/02/17 05:18 10:41 12:19 WBC RBC Hgb Hct MCV MCH RDW Plt Count Lymph % (Auto) [place] % (Auto) Eos % (Auto) Baso % (Auto) Lymph # Baso # Seg Neutrophils % Lymphocytes % (Manual) Monocytes % (Manual) Nucleated RBC % Seg Neutrophils # Seg Neutrophils # Man Monocytes # (Manual) PT INR Activated Clotting Time POC ABG pH 7.534 H POC ABG pCO2 27.4 L POC ABG pO2 Sodium Potassium Chloride Carbon Dioxide BUN Creatinine Glucose POC Glucose 132 H 129 H Calcium Magnesium Direct Bilirubin AST ALT Alkaline Phosphatase Total Creatine Kinase CK-MB (CK-2) CK-MB (CK-2) Rel Index Troponin T C-Reactive Protein Total Protein Albumin Triglycerides Ur Specific [place] Urine WBC (Auto) Miscellaneous Test 04/02/17 04/03/17 04/03/17 18:05 00:08 05:09 WBC RBC Hgb Hct MCV MCH RDW Plt Count Lymph % (Auto) [place] % (Auto) Eos % (Auto) Baso % (Auto) Lymph # Baso # Seg Neutrophils % Lymphocytes % (Manual) Monocytes % (Manual) Nucleated RBC % Seg Neutrophils # Seg Neutrophils # Man Monocytes # (Manual) PT INR Activated Clotting Time POC ABG pH 7.455 H POC ABG pCO2 33.2 L POC ABG pO2 120 H Sodium Potassium Chloride Carbon Dioxide BUN Creatinine Glucose POC Glucose 136 H 128 H Calcium Magnesium Direct Bilirubin AST ALT Alkaline Phosphatase Total Creatine Kinase CK-MB (CK-2) CK-MB (CK-2) Rel Index Troponin T C-Reactive Protein Total Protein Albumin Triglycerides Ur Specific [place] Urine WBC (Auto) Miscellaneous Test 04/03/17 04/03/17 04/03/17 06:32 11:54 12:16 WBC 11.9 H RBC Hgb Hct MCV MCH RDW Plt Count 125 L Lymph % (Auto) 4.8 L [place] % (Auto) Eos % (Auto) Baso % (Auto) Lymph # 0.6 L Baso # Seg Neutrophils % 86.7 H Lymphocytes % (Manual) Monocytes % (Manual) Nucleated RBC % Seg Neutrophils # 10.3 H Seg Neutrophils # Man Monocytes # (Manual) PT INR Activated Clotting Time POC ABG pH POC ABG pCO2 POC ABG pO2 Sodium Potassium Chloride Carbon Dioxide BUN Creatinine Glucose POC Glucose 138 H 143 H Calcium Magnesium Direct Bilirubin AST ALT Alkaline Phosphatase Total Creatine Kinase CK-MB (CK-2) CK-MB (CK-2) Rel Index Troponin T C-Reactive Protein Total Protein Albumin Triglycerides Ur Specific [place] Urine WBC (Auto) Miscellaneous Test 04/03/17 04/03/17 04/04/17 17:33 23:59 04:34 WBC RBC Hgb Hct MCV MCH RDW Plt Count Lymph % (Auto) [place] % (Auto) Eos % (Auto) Baso % (Auto) Lymph # Baso # Seg Neutrophils % Lymphocytes % (Manual) Monocytes % (Manual) Nucleated RBC % Seg Neutrophils # Seg Neutrophils # Man Monocytes # (Manual) PT INR Activated Clotting Time POC ABG pH 7.457 H POC ABG pCO2 29.8 L POC ABG pO2 76 L Sodium Potassium Chloride Carbon Dioxide BUN Creatinine Glucose POC Glucose 130 H 155 H Calcium Magnesium Direct Bilirubin AST ALT Alkaline Phosphatase Total Creatine Kinase CK-MB (CK-2) CK-MB (CK-2) Rel Index Troponin T C-Reactive Protein Total Protein Albumin Triglycerides Ur Specific [place] Urine WBC (Auto) Miscellaneous Test 04/04/17 04/04/17 04/04/17 05:27 12:22 18:18 WBC RBC Hgb Hct MCV MCH RDW Plt Count Lymph % (Auto) [place] % (Auto) Eos % (Auto) Baso % (Auto) Lymph # Baso # Seg Neutrophils % Lymphocytes % (Manual) Monocytes % (Manual) Nucleated RBC % Seg Neutrophils # Seg Neutrophils # Man Monocytes # (Manual) PT INR Activated Clotting Time POC ABG pH POC ABG pCO2 POC ABG pO2 Sodium Potassium Chloride Carbon Dioxide BUN Creatinine Glucose POC Glucose 164 H 146 H 130 H Calcium Magnesium Direct Bilirubin AST ALT Alkaline Phosphatase Total Creatine Kinase CK-MB (CK-2) CK-MB (CK-2) Rel Index Troponin T C-Reactive Protein Total Protein Albumin Triglycerides Ur Specific [place] Urine WBC (Auto) Miscellaneous Test 04/05/17 04/05/17 04/05/17 04:43 05:28 11:36 WBC RBC Hgb Hct MCV MCH RDW Plt Count Lymph % (Auto) [place] % (Auto) Eos % (Auto) Baso % (Auto) Lymph # Baso # Seg Neutrophils % Lymphocytes % (Manual) Monocytes % (Manual) Nucleated RBC % Seg Neutrophils # Seg Neutrophils # Man Monocytes # (Manual) PT INR Activated Clotting Time POC ABG pH 7.479 H POC ABG pCO2 33.5 L POC ABG pO2 76 L Sodium Potassium Chloride Carbon Dioxide BUN Creatinine Glucose POC Glucose 145 H 136 H Calcium Magnesium Direct Bilirubin AST ALT Alkaline Phosphatase Total Creatine Kinase CK-MB (CK-2) CK-MB (CK-2) Rel Index Troponin T C-Reactive Protein Total Protein Albumin Triglycerides Ur Specific [place] Urine WBC (Auto) Miscellaneous Test 04/05/17 04/06/17 04/06/17 17:58 00:16 05:26 WBC RBC Hgb Hct MCV MCH RDW Plt Count Lymph % (Auto) [place] % (Auto) Eos % (Auto) Baso % (Auto) Lymph # Baso # Seg Neutrophils % Lymphocytes % (Manual) Monocytes % (Manual) Nucleated RBC % Seg Neutrophils # Seg Neutrophils # Man Monocytes # (Manual) PT INR Activated Clotting Time POC ABG pH POC ABG pCO2 POC ABG pO2 Sodium Potassium Chloride Carbon Dioxide BUN Creatinine Glucose POC Glucose 130 H 159 H 146 H Calcium Magnesium Direct Bilirubin AST ALT Alkaline Phosphatase Total Creatine Kinase CK-MB (CK-2) CK-MB (CK-2) Rel Index Troponin T C-Reactive Protein Total Protein Albumin Triglycerides Ur Specific [place] Urine WBC (Auto) Miscellaneous Test 04/06/17 04/06/17 04/07/17 13:11 16:54 11:45 WBC RBC Hgb Hct MCV MCH RDW Plt Count Lymph % (Auto) [place] % (Auto) Eos % (Auto) Baso % (Auto) Lymph # Baso # Seg Neutrophils % Lymphocytes % (Manual) Monocytes % (Manual) Nucleated RBC % Seg Neutrophils # Seg Neutrophils # Man Monocytes # (Manual) PT INR Activated Clotting Time POC ABG pH 7.517 H POC ABG pCO2 32.1 L POC ABG pO2 Sodium Potassium Chloride Carbon Dioxide BUN Creatinine Glucose POC Glucose 132 H 123 H Calcium Magnesium Direct Bilirubin AST ALT Alkaline Phosphatase Total Creatine Kinase CK-MB (CK-2) CK-MB (CK-2) Rel Index Troponin T C-Reactive Protein Total Protein Albumin Triglycerides Ur Specific [place] Urine WBC (Auto) Miscellaneous Test 04/07/17 04/07/17 04/07/17 12:51 17:40 23:55 WBC RBC Hgb Hct MCV MCH RDW Plt Count Lymph % (Auto) [place] % (Auto) Eos % (Auto) Baso % (Auto) Lymph # Baso # Seg Neutrophils % Lymphocytes % (Manual) Monocytes % (Manual) Nucleated RBC % Seg Neutrophils # Seg Neutrophils # Man Monocytes # (Manual) PT INR Activated Clotting Time POC ABG pH POC ABG pCO2 POC ABG pO2 Sodium Potassium Chloride Carbon Dioxide BUN Creatinine Glucose POC Glucose 138 H 154 H 143 H Calcium Magnesium Direct Bilirubin AST ALT Alkaline Phosphatase Total Creatine Kinase CK-MB (CK-2) CK-MB (CK-2) Rel Index Troponin T C-Reactive Protein Total Protein Albumin Triglycerides Ur Specific [place] Urine WBC (Auto) Miscellaneous Test 04/08/17 04/08/17 04/08/17 05:27 11:14 17:44 WBC RBC Hgb Hct MCV MCH RDW Plt Count Lymph % (Auto) [place] % (Auto) Eos % (Auto) Baso % (Auto) Lymph # Baso # Seg Neutrophils % Lymphocytes % (Manual) Monocytes % (Manual) Nucleated RBC % Seg Neutrophils # Seg Neutrophils # Man Monocytes # (Manual) PT INR Activated Clotting Time POC ABG pH POC ABG pCO2 POC ABG pO2 Sodium Potassium Chloride Carbon Dioxide BUN Creatinine Glucose POC Glucose 142 H 153 H 129 H Calcium Magnesium Direct Bilirubin AST ALT Alkaline Phosphatase Total Creatine Kinase CK-MB (CK-2) CK-MB (CK-2) Rel Index Troponin T C-Reactive Protein Total Protein Albumin Triglycerides Ur Specific [place] Urine WBC (Auto) Miscellaneous Test 01/14/18 01/14/18 01/14/18 08:20 11:21 17:37 WBC RBC Hgb Hct MCV MCH RDW Plt Count Lymph % (Auto) [place] % (Auto) Eos % (Auto) Baso % (Auto) Lymph # Baso # Seg Neutrophils % Lymphocytes % (Manual) Monocytes % (Manual) Nucleated RBC % Seg Neutrophils # Seg Neutrophils # Man Monocytes # (Manual) PT INR Activated Clotting Time POC ABG pH POC ABG pCO2 POC ABG pO2 Sodium 147 H Potassium Chloride 108.8 H Carbon Dioxide BUN 39 H Creatinine 0.5 L Glucose 138 H POC Glucose 152 H 109 H Calcium Magnesium Direct Bilirubin AST ALT Alkaline Phosphatase Total Creatine Kinase CK-MB (CK-2) CK-MB (CK-2) Rel Index Troponin T C-Reactive Protein Total Protein Albumin Triglycerides Ur Specific [place] Urine WBC (Auto) Miscellaneous Test 04/10/17 04/10/17 04/10/17 00:13 04:16 04:16 WBC RBC Hgb 11.5 L Hct MCV 96 H MCH RDW Plt Count 103 L Lymph % (Auto) 11.1 L [place] % (Auto) Eos % (Auto) Baso % (Auto) Lymph # Baso # Seg Neutrophils % 81.5 H Lymphocytes % (Manual) Monocytes % (Manual) Nucleated RBC % Seg Neutrophils # 8.8 H Seg Neutrophils # Man Monocytes # (Manual) PT INR Activated Clotting Time POC ABG pH POC ABG pCO2 POC ABG pO2 Sodium 148 H Potassium Chloride 109.0 H Carbon Dioxide BUN 36 H Creatinine 0.5 L Glucose 131 H POC Glucose 127 H Calcium 8.1 L Magnesium 2.40 H Direct Bilirubin AST 206 H ALT 228 H Alkaline Phosphatase 178 H Total Creatine Kinase CK-MB (CK-2) CK-MB (CK-2) Rel Index Troponin T C-Reactive Protein Total Protein Albumin 2.8 L Triglycerides Ur Specific [place] Urine WBC (Auto) Miscellaneous Test 04/10/17 04/10/17 04/10/17 06:01 11:57 18:27 WBC RBC Hgb Hct MCV MCH RDW Plt Count Lymph % (Auto) [place] % (Auto) Eos % (Auto) Baso % (Auto) Lymph # Baso # Seg Neutrophils % Lymphocytes % (Manual) Monocytes % (Manual) Nucleated RBC % Seg Neutrophils # Seg Neutrophils # Man Monocytes # (Manual) PT INR Activated Clotting Time POC ABG pH POC ABG pCO2 POC ABG pO2 Sodium Potassium Chloride Carbon Dioxide BUN Creatinine Glucose POC Glucose 108 H 154 H 130 H Calcium Magnesium Direct Bilirubin AST ALT Alkaline Phosphatase Total Creatine Kinase CK-MB (CK-2) CK-MB (CK-2) Rel Index Troponin T C-Reactive Protein Total Protein Albumin Triglycerides Ur Specific [place] Urine WBC (Auto) Miscellaneous Test 04/11/17 04/11/17 04/12/17 12:25 17:10 00:22 WBC RBC Hgb Hct MCV MCH RDW Plt Count Lymph % (Auto) [place] % (Auto) Eos % (Auto) Baso % (Auto) Lymph # Baso # Seg Neutrophils % Lymphocytes % (Manual) Monocytes % (Manual) Nucleated RBC % Seg Neutrophils # Seg Neutrophils # Man Monocytes # (Manual) PT INR Activated Clotting Time POC ABG pH POC ABG pCO2 POC ABG pO2 Sodium Potassium Chloride Carbon Dioxide BUN Creatinine Glucose POC Glucose 107 H 129 H 128 H Calcium Magnesium Direct Bilirubin AST ALT Alkaline Phosphatase Total Creatine Kinase CK-MB (CK-2) CK-MB (CK-2) Rel Index Troponin T C-Reactive Protein Total Protein Albumin Triglycerides Ur Specific [place] Urine WBC (Auto) Miscellaneous Test 04/12/17 04/12/17 04/12/17 05:00 11:57 17:47 WBC RBC Hgb Hct MCV MCH RDW Plt Count Lymph % (Auto) [place] % (Auto) Eos % (Auto) Baso % (Auto) Lymph # Baso # Seg Neutrophils % Lymphocytes % (Manual) Monocytes % (Manual) Nucleated RBC % Seg Neutrophils # Seg Neutrophils # Man Monocytes # (Manual) PT INR Activated Clotting Time POC ABG pH POC ABG pCO2 POC ABG pO2 Sodium Potassium Chloride Carbon Dioxide BUN Creatinine Glucose POC Glucose 140 H 142 H Calcium Magnesium Direct Bilirubin AST 158 H ALT 184 H Alkaline Phosphatase 170 H Total Creatine Kinase CK-MB (CK-2) CK-MB (CK-2) Rel Index Troponin T C-Reactive Protein Total Protein Albumin 2.8 L Triglycerides Ur Specific [place] Urine WBC (Auto) Miscellaneous Test 04/12/17 04/12/17 04/13/17 21:36 21:36 01:37 WBC RBC Hgb Hct MCV MCH RDW Plt Count Lymph % (Auto) [place] % (Auto) Eos % (Auto) Baso % (Auto) Lymph # Baso # Seg Neutrophils % Lymphocytes % (Manual) Monocytes % (Manual) Nucleated RBC % Seg Neutrophils # Seg Neutrophils # Man Monocytes # (Manual) PT INR Activated Clotting Time POC ABG pH POC ABG pCO2 POC ABG pO2 Sodium Potassium Chloride Carbon Dioxide BUN Creatinine Glucose POC Glucose 126 H Calcium Magnesium Direct Bilirubin AST ALT Alkaline Phosphatase Total Creatine Kinase 1404 H CK-MB (CK-2) 8.0 H CK-MB (CK-2) Rel Index Troponin T 0.767 H* C-Reactive Protein Total Protein Albumin Triglycerides Ur Specific [place] Urine WBC (Auto) Miscellaneous Test 04/13/17 04/13/17 04/13/17 04:45 04:52 12:17 WBC RBC Hgb Hct MCV MCH RDW Plt Count Lymph % (Auto) [place] % (Auto) Eos % (Auto) Baso % (Auto) Lymph # Baso # Seg Neutrophils % Lymphocytes % (Manual) Monocytes % (Manual) Nucleated RBC % Seg Neutrophils # Seg Neutrophils # Man Monocytes # (Manual) PT INR Activated Clotting Time POC ABG pH POC ABG pCO2 POC ABG pO2 Sodium 148 H Potassium Chloride 112.8 H Carbon Dioxide BUN 33 H Creatinine 0.4 L Glucose 121 H POC Glucose 126 H 149 H Calcium Magnesium Direct Bilirubin AST 160 H ALT 189 H Alkaline Phosphatase 166 H Total Creatine Kinase CK-MB (CK-2) CK-MB (CK-2) Rel Index Troponin T C-Reactive Protein Total Protein Albumin 2.6 L Triglycerides Ur Specific [place] Urine WBC (Auto) Miscellaneous Test 04/13/17 04/14/17 04/14/17 17:45 00:20 00:45 WBC RBC Hgb Hct MCV MCH RDW Plt Count Lymph % (Auto) [place] % (Auto) Eos % (Auto) Baso % (Auto) Lymph # Baso # Seg Neutrophils % Lymphocytes % (Manual) Monocytes % (Manual) Nucleated RBC % Seg Neutrophils # Seg Neutrophils # Man Monocytes # (Manual) PT INR Activated Clotting Time POC ABG pH POC ABG pCO2 POC ABG pO2 Sodium Potassium Chloride Carbon Dioxide BUN Creatinine Glucose POC Glucose 130 H 144 H 144 H Calcium Magnesium Direct Bilirubin AST ALT Alkaline Phosphatase Total Creatine Kinase CK-MB (CK-2) CK-MB (CK-2) Rel Index Troponin T C-Reactive Protein Total Protein Albumin Triglycerides Ur Specific [place] Urine WBC (Auto) Miscellaneous Test 04/14/17 04/14/17 04/14/17 05:40 11:06 11:31 WBC RBC Hgb Hct MCV MCH RDW Plt Count Lymph % (Auto) [place] % (Auto) Eos % (Auto) Baso % (Auto) Lymph # Baso # Seg Neutrophils % Lymphocytes % (Manual) Monocytes % (Manual) Nucleated RBC % Seg Neutrophils # Seg Neutrophils # Man Monocytes # (Manual) PT INR Activated Clotting Time POC ABG pH POC ABG pCO2 POC ABG pO2 Sodium Potassium Chloride Carbon Dioxide BUN Creatinine Glucose POC Glucose 139 H 123 H Calcium Magnesium Direct Bilirubin AST ALT Alkaline Phosphatase Total Creatine Kinase CK-MB (CK-2) CK-MB (CK-2) Rel Index Troponin T C-Reactive Protein Total Protein Albumin Triglycerides Ur Specific [place] 1.033 H Urine WBC (Auto) > 182.0 H Miscellaneous Test 04/14/17 04/14/17 04/15/17 18:00 23:52 05:15 WBC 12.5 H RBC 3.38 L Hgb 10.6 L Hct 32.7 L MCV 97 H MCH RDW Plt Count 107 L Lymph % (Auto) 8.7 L [place] % (Auto) Eos % (Auto) Baso % (Auto) Lymph # 1.1 L Baso # Seg Neutrophils % 86.1 H Lymphocytes % (Manual) Monocytes % (Manual) Nucleated RBC % Seg Neutrophils # 10.7 H Seg Neutrophils # Man Monocytes # (Manual) PT INR Activated Clotting Time POC ABG pH POC ABG pCO2 POC ABG pO2 Sodium Potassium Chloride Carbon Dioxide BUN Creatinine Glucose POC Glucose 133 H 133 H Calcium Magnesium Direct Bilirubin AST ALT Alkaline Phosphatase Total Creatine Kinase CK-MB (CK-2) CK-MB (CK-2) Rel Index Troponin T C-Reactive Protein Total Protein Albumin Triglycerides Ur Specific [place] Urine WBC (Auto) Miscellaneous Test 04/15/17 04/15/17 04/15/17 05:15 05:25 11:50 WBC RBC Hgb Hct MCV MCH RDW Plt Count Lymph % (Auto) [place] % (Auto) Eos % (Auto) Baso % (Auto) Lymph # Baso # Seg Neutrophils % Lymphocytes % (Manual) Monocytes % (Manual) Nucleated RBC % Seg Neutrophils # Seg Neutrophils # Man Monocytes # (Manual) PT INR Activated Clotting Time POC ABG pH POC ABG pCO2 POC ABG pO2 Sodium 149 H Potassium 3.5 L Chloride 114.1 H Carbon Dioxide 21 L BUN 29 H Creatinine 0.4 L Glucose 128 H POC Glucose 133 H 107 H Calcium 8.3 L Magnesium Direct Bilirubin 0.4 H AST 149 H ALT 182 H Alkaline Phosphatase 143 H Total Creatine Kinase CK-MB (CK-2) CK-MB (CK-2) Rel Index Troponin T C-Reactive Protein Total Protein Albumin 2.5 L Triglycerides Ur Specific [place] Urine WBC (Auto) Miscellaneous Test 04/15/17 04/16/17 04/16/17 16:55 00:02 03:17 WBC RBC 3.39 L Hgb 10.5 L Hct 32.4 L MCV 96 H MCH RDW Plt Count 106 L Lymph % (Auto) 6.7 L [place] % (Auto) Eos % (Auto) Baso % (Auto) Lymph # 0.6 L Baso # Seg Neutrophils % 86.8 H Lymphocytes % (Manual) Monocytes % (Manual) Nucleated RBC % Seg Neutrophils # 8.2 H Seg Neutrophils # Man Monocytes # (Manual) PT INR Activated Clotting Time POC ABG pH POC ABG pCO2 POC ABG pO2 Sodium Potassium Chloride Carbon Dioxide BUN Creatinine Glucose POC Glucose 146 H 148 H Calcium Magnesium Direct Bilirubin AST ALT Alkaline Phosphatase Total Creatine Kinase CK-MB (CK-2) CK-MB (CK-2) Rel Index Troponin T C-Reactive Protein Total Protein Albumin Triglycerides Ur Specific [place] Urine WBC (Auto) Miscellaneous Test 04/16/17 04/16/17 04/16/17 03:17 05:19 11:13 WBC RBC Hgb Hct MCV MCH RDW Plt Count Lymph % (Auto) [place] % (Auto) Eos % (Auto) Baso % (Auto) Lymph # Baso # Seg Neutrophils % Lymphocytes % (Manual) Monocytes % (Manual) Nucleated RBC % Seg Neutrophils # Seg Neutrophils # Man Monocytes # (Manual) PT INR Activated Clotting Time POC ABG pH POC ABG pCO2 POC ABG pO2 Sodium 149 H Potassium Chloride 111.1 H Carbon Dioxide 20 L BUN 27 H Creatinine 0.3 L Glucose 156 H POC Glucose 171 H 169 H Calcium 8.3 L Magnesium Direct Bilirubin AST ALT Alkaline Phosphatase Total Creatine Kinase CK-MB (CK-2) CK-MB (CK-2) Rel Index Troponin T C-Reactive Protein Total Protein Albumin Triglycerides Ur Specific [place] Urine WBC (Auto) Miscellaneous Test 04/16/17 04/17/17 04/17/17 17:03 00:00 05:09 WBC RBC Hgb Hct MCV MCH RDW Plt Count Lymph % (Auto) [place] % (Auto) Eos % (Auto) Baso % (Auto) Lymph # Baso # Seg Neutrophils % Lymphocytes % (Manual) Monocytes % (Manual) Nucleated RBC % Seg Neutrophils # Seg Neutrophils # Man Monocytes # (Manual) PT INR Activated Clotting Time POC ABG pH POC ABG pCO2 POC ABG pO2 Sodium Potassium Chloride Carbon Dioxide BUN Creatinine Glucose POC Glucose 151 H 165 H 145 H Calcium Magnesium Direct Bilirubin AST ALT Alkaline Phosphatase Total Creatine Kinase CK-MB (CK-2) CK-MB (CK-2) Rel Index Troponin T C-Reactive Protein Total Protein Albumin Triglycerides Ur Specific [place] Urine WBC (Auto) Miscellaneous Test 04/17/17 04/17/17 04/18/17 11:38 17:47 00:01 WBC RBC Hgb Hct MCV MCH RDW Plt Count Lymph % (Auto) [place] % (Auto) Eos % (Auto) Baso % (Auto) Lymph # Baso # Seg Neutrophils % Lymphocytes % (Manual) Monocytes % (Manual) Nucleated RBC % Seg Neutrophils # Seg Neutrophils # Man Monocytes # (Manual) PT INR Activated Clotting Time POC ABG pH POC ABG pCO2 POC ABG pO2 Sodium Potassium Chloride Carbon Dioxide BUN Creatinine Glucose POC Glucose 170 H 161 H 131 H Calcium Magnesium Direct Bilirubin AST ALT Alkaline Phosphatase Total Creatine Kinase CK-MB (CK-2) CK-MB (CK-2) Rel Index Troponin T C-Reactive Protein Total Protein Albumin Triglycerides Ur Specific [place] Urine WBC (Auto) Miscellaneous Test 04/18/17 04/18/17 04/18/17 03:55 03:55 05:30 WBC RBC 3.05 L Hgb 9.8 L Hct 29.0 L MCV 95 H MCH RDW Plt Count 113 L Lymph % (Auto) [place] % (Auto) Eos % (Auto) 5.3 H Baso % (Auto) Lymph # Baso # Seg Neutrophils % 71.5 H Lymphocytes % (Manual) Monocytes % (Manual) Nucleated RBC % Seg Neutrophils # Seg Neutrophils # Man Monocytes # (Manual) PT INR Activated Clotting Time POC ABG pH 7.460 H POC ABG pCO2 30.8 L POC ABG pO2 129 H Sodium Potassium Chloride Carbon Dioxide 21 L BUN 25 H Creatinine 0.4 L Glucose 123 H POC Glucose Calcium 8.3 L Magnesium Direct Bilirubin AST ALT Alkaline Phosphatase Total Creatine Kinase CK-MB (CK-2) CK-MB (CK-2) Rel Index Troponin T C-Reactive Protein Total Protein Albumin Triglycerides Ur Specific [place] Urine WBC (Auto) Miscellaneous Test 04/18/17 04/18/17 04/19/17 17:10 23:40 04:36 WBC RBC 3.21 L Hgb 10.2 L Hct 30.4 L MCV 95 H MCH RDW Plt Count 131 L Lymph % (Auto) 12.1 L [place] % (Auto) Eos % (Auto) 4.7 H Baso % (Auto) 2.4 H Lymph # 0.9 L Baso # 0.2 H Seg Neutrophils % 75.0 H Lymphocytes % (Manual) Monocytes % (Manual) Nucleated RBC % Seg Neutrophils # Seg Neutrophils # Man Monocytes # (Manual) PT INR Activated Clotting Time POC ABG pH POC ABG pCO2 POC ABG pO2 Sodium Potassium Chloride Carbon Dioxide BUN Creatinine Glucose POC Glucose 135 H 157 H Calcium Magnesium Direct Bilirubin AST ALT Alkaline Phosphatase Total Creatine Kinase CK-MB (CK-2) CK-MB (CK-2) Rel Index Troponin T C-Reactive Protein Total Protein Albumin Triglycerides Ur Specific [place] Urine WBC (Auto) Miscellaneous Test 04/19/17 04/19/17 04/19/17 04:36 05:12 06:50 WBC RBC Hgb Hct MCV MCH RDW Plt Count Lymph % (Auto) [place] % (Auto) Eos % (Auto) Baso % (Auto) Lymph # Baso # Seg Neutrophils % Lymphocytes % (Manual) Monocytes % (Manual) Nucleated RBC % Seg Neutrophils # Seg Neutrophils # Man Monocytes # (Manual) PT INR Activated Clotting Time POC ABG pH 7.516 H POC ABG pCO2 28.0 L POC ABG pO2 Sodium Potassium Chloride Carbon Dioxide 21 L BUN 23 H Creatinine 0.2 L Glucose 137 H POC Glucose 131 H Calcium 7.9 L Magnesium Direct Bilirubin AST ALT Alkaline Phosphatase Total Creatine Kinase CK-MB (CK-2) CK-MB (CK-2) Rel Index Troponin T C-Reactive Protein Total Protein Albumin Triglycerides Ur Specific [place] Urine WBC (Auto) Miscellaneous Test 04/19/17 04/19/17 04/20/17 12:36 17:42 00:12 WBC RBC Hgb Hct MCV MCH RDW Plt Count Lymph % (Auto) [place] % (Auto) Eos % (Auto) Baso % (Auto) Lymph # Baso # Seg Neutrophils % Lymphocytes % (Manual) Monocytes % (Manual) Nucleated RBC % Seg Neutrophils # Seg Neutrophils # Man Monocytes # (Manual) PT INR Activated Clotting Time POC ABG pH POC ABG pCO2 POC ABG pO2 Sodium Potassium Chloride Carbon Dioxide BUN Creatinine Glucose POC Glucose 128 H 140 H 132 H Calcium Magnesium Direct Bilirubin AST ALT Alkaline Phosphatase Total Creatine Kinase CK-MB (CK-2) CK-MB (CK-2) Rel Index Troponin T C-Reactive Protein Total Protein Albumin Triglycerides Ur Specific [place] Urine WBC (Auto) Miscellaneous Test 04/20/17 04/20/17 04/20/17 03:35 03:35 05:10 WBC RBC 3.34 L Hgb 10.4 L Hct 31.6 L MCV 95 H MCH RDW Plt Count Lymph % (Auto) 12.9 L [place] % (Auto) Eos % (Auto) Baso % (Auto) Lymph # Baso # Seg Neutrophils % 77.3 H Lymphocytes % (Manual) Monocytes % (Manual) Nucleated RBC % Seg Neutrophils # Seg Neutrophils # Man Monocytes # (Manual) PT INR Activated Clotting Time POC ABG pH POC ABG pCO2 POC ABG pO2 Sodium Potassium Chloride Carbon Dioxide BUN Creatinine 0.3 L Glucose 155 H POC Glucose 135 H Calcium 7.8 L Magnesium Direct Bilirubin AST ALT Alkaline Phosphatase Total Creatine Kinase CK-MB (CK-2) CK-MB (CK-2) Rel Index Troponin T C-Reactive Protein Total Protein Albumin Triglycerides Ur Specific [place] Urine WBC (Auto) Miscellaneous Test 04/20/17 04/20/17 04/21/17 12:49 18:21 00:05 WBC RBC Hgb Hct MCV MCH RDW Plt Count Lymph % (Auto) [place] % (Auto) Eos % (Auto) Baso % (Auto) Lymph # Baso # Seg Neutrophils % Lymphocytes % (Manual) Monocytes % (Manual) Nucleated RBC % Seg Neutrophils # Seg Neutrophils # Man Monocytes # (Manual) PT INR Activated Clotting Time POC ABG pH POC ABG pCO2 POC ABG pO2 Sodium Potassium Chloride Carbon Dioxide BUN Creatinine Glucose POC Glucose 155 H 165 H 141 H Calcium Magnesium Direct Bilirubin AST ALT Alkaline Phosphatase Total Creatine Kinase CK-MB (CK-2) CK-MB (CK-2) Rel Index Troponin T C-Reactive Protein Total Protein Albumin Triglycerides Ur Specific [place] Urine WBC (Auto) Miscellaneous Test 04/21/17 04/21/17 04/21/17 06:00 12:11 17:04 WBC RBC Hgb Hct MCV MCH RDW Plt Count Lymph % (Auto) [place] % (Auto) Eos % (Auto) Baso % (Auto) Lymph # Baso # Seg Neutrophils % Lymphocytes % (Manual) Monocytes % (Manual) Nucleated RBC % Seg Neutrophils # Seg Neutrophils # Man Monocytes # (Manual) PT INR Activated Clotting Time POC ABG pH POC ABG pCO2 POC ABG pO2 Sodium Potassium Chloride Carbon Dioxide BUN Creatinine Glucose POC Glucose 152 H 165 H 156 H Calcium Magnesium Direct Bilirubin AST ALT Alkaline Phosphatase Total Creatine Kinase CK-MB (CK-2) CK-MB (CK-2) Rel Index Troponin T C-Reactive Protein Total Protein Albumin Triglycerides Ur Specific [place] Urine WBC (Auto) Miscellaneous Test 04/21/17 04/21/17 04/22/17 22:00 23:59 05:49 WBC RBC Hgb Hct MCV MCH RDW Plt Count Lymph % (Auto) [place] % (Auto) Eos % (Auto) Baso % (Auto) Lymph # Baso # Seg Neutrophils % Lymphocytes % (Manual) Monocytes % (Manual) Nucleated RBC % Seg Neutrophils # Seg Neutrophils # Man Monocytes # (Manual) PT INR Activated Clotting Time POC ABG pH POC ABG pCO2 POC ABG pO2 Sodium Potassium Chloride Carbon Dioxide BUN Creatinine Glucose POC Glucose 166 H 173 H Calcium Magnesium Direct Bilirubin AST ALT Alkaline Phosphatase Total Creatine Kinase CK-MB (CK-2) CK-MB (CK-2) Rel Index Troponin T C-Reactive Protein Total Protein Albumin Triglycerides Ur Specific [place] Urine WBC (Auto) 10.0 H Miscellaneous Test 04/22/17 04/22/17 04/23/17 11:11 18:04 00:37 WBC RBC Hgb Hct MCV MCH RDW Plt Count Lymph % (Auto) [place] % (Auto) Eos % (Auto) Baso % (Auto) Lymph # Baso # Seg Neutrophils % Lymphocytes % (Manual) Monocytes % (Manual) Nucleated RBC % Seg Neutrophils # Seg Neutrophils # Man Monocytes # (Manual) PT INR Activated Clotting Time POC ABG pH POC ABG pCO2 POC ABG pO2 Sodium Potassium Chloride Carbon Dioxide BUN Creatinine Glucose POC Glucose 172 H 140 H 135 H Calcium Magnesium Direct Bilirubin AST ALT Alkaline Phosphatase Total Creatine Kinase CK-MB (CK-2) CK-MB (CK-2) Rel Index Troponin T C-Reactive Protein Total Protein Albumin Triglycerides Ur Specific [place] Urine WBC (Auto) Miscellaneous Test 04/23/17 04/23/17 04/23/17 05:33 06:20 11:10 WBC RBC 3.19 L Hgb 9.9 L Hct 30.0 L MCV MCH RDW Plt Count Lymph % (Auto) 8.0 L [place] % (Auto) Eos % (Auto) Baso % (Auto) Lymph # 0.8 L Baso # Seg Neutrophils % 84.5 H Lymphocytes % (Manual) Monocytes % (Manual) Nucleated RBC % Seg Neutrophils # 8.2 H Seg Neutrophils # Man Monocytes # (Manual) PT INR Activated Clotting Time POC ABG pH POC ABG pCO2 POC ABG pO2 Sodium Potassium Chloride Carbon Dioxide BUN Creatinine Glucose POC Glucose 134 H 134 H Calcium Magnesium Direct Bilirubin AST ALT Alkaline Phosphatase Total Creatine Kinase CK-MB (CK-2) CK-MB (CK-2) Rel Index Troponin T C-Reactive Protein Total Protein Albumin Triglycerides Ur Specific [place] Urine WBC (Auto) Miscellaneous Test 04/23/17 04/24/17 04/24/17 17:26 00:53 06:46 WBC RBC Hgb Hct MCV MCH RDW Plt Count Lymph % (Auto) [place] % (Auto) Eos % (Auto) Baso % (Auto) Lymph # Baso # Seg Neutrophils % Lymphocytes % (Manual) Monocytes % (Manual) Nucleated RBC % Seg Neutrophils # Seg Neutrophils # Man Monocytes # (Manual) PT INR Activated Clotting Time POC ABG pH POC ABG pCO2 POC ABG pO2 Sodium Potassium Chloride Carbon Dioxide BUN Creatinine Glucose POC Glucose 164 H 146 H 125 H Calcium Magnesium Direct Bilirubin AST ALT Alkaline Phosphatase Total Creatine Kinase CK-MB (CK-2) CK-MB (CK-2) Rel Index Troponin T C-Reactive Protein Total Protein Albumin Triglycerides Ur Specific [place] Urine WBC (Auto) Miscellaneous Test 04/24/17 04/24/17 04/24/17 11:55 17:50 23:36 WBC RBC Hgb Hct MCV MCH RDW Plt Count Lymph % (Auto) [place] % (Auto) Eos % (Auto) Baso % (Auto) Lymph # Baso # Seg Neutrophils % Lymphocytes % (Manual) Monocytes % (Manual) Nucleated RBC % Seg Neutrophils # Seg Neutrophils # Man Monocytes # (Manual) PT INR Activated Clotting Time POC ABG pH POC ABG pCO2 POC ABG pO2 Sodium Potassium Chloride Carbon Dioxide BUN Creatinine Glucose POC Glucose 156 H 146 H 131 H Calcium Magnesium Direct Bilirubin AST ALT Alkaline Phosphatase Total Creatine Kinase CK-MB (CK-2) CK-MB (CK-2) Rel Index Troponin T C-Reactive Protein Total Protein Albumin Triglycerides Ur Specific [place] Urine WBC (Auto) Miscellaneous Test 04/25/17 04/25/17 04/25/17 04:51 05:16 07:07 WBC RBC Hgb Hct MCV MCH RDW Plt Count Lymph % (Auto) [place] % (Auto) Eos % (Auto) Baso % (Auto) Lymph # Baso # Seg Neutrophils % Lymphocytes % (Manual) Monocytes % (Manual) Nucleated RBC % Seg Neutrophils # Seg Neutrophils # Man Monocytes # (Manual) PT INR Activated Clotting Time POC ABG pH POC ABG pCO2 POC ABG pO2 Sodium Potassium Chloride Carbon Dioxide BUN Creatinine Glucose POC Glucose 139 H Calcium Magnesium Direct Bilirubin AST 105 H ALT 204 H Alkaline Phosphatase 189 H Total Creatine Kinase CK-MB (CK-2) CK-MB (CK-2) Rel Index Troponin T C-Reactive Protein Total Protein Albumin 2.4 L Triglycerides Ur Specific [place] Urine WBC (Auto) Miscellaneous Test Flexitest 1 H 04/25/17 04/25/17 04/25/17 12:29 17:23 23:32 WBC RBC Hgb Hct MCV MCH RDW Plt Count Lymph % (Auto) [place] % (Auto) Eos % (Auto) Baso % (Auto) Lymph # Baso # Seg Neutrophils % Lymphocytes % (Manual) Monocytes % (Manual) Nucleated RBC % Seg Neutrophils # Seg Neutrophils # Man Monocytes # (Manual) PT INR Activated Clotting Time POC ABG pH POC ABG pCO2 POC ABG pO2 Sodium Potassium Chloride Carbon Dioxide BUN Creatinine Glucose POC Glucose 132 H 133 H 128 H Calcium Magnesium Direct Bilirubin AST ALT Alkaline Phosphatase Total Creatine Kinase CK-MB (CK-2) CK-MB (CK-2) Rel Index Troponin T C-Reactive Protein Total Protein Albumin Triglycerides Ur Specific [place] Urine WBC (Auto) Miscellaneous Test 04/26/17 04/26/17 04/26/17 05:24 11:28 17:09 WBC RBC Hgb Hct MCV MCH RDW Plt Count Lymph % (Auto) [place] % (Auto) Eos % (Auto) Baso % (Auto) Lymph # Baso # Seg Neutrophils % Lymphocytes % (Manual) Monocytes % (Manual) Nucleated RBC % Seg Neutrophils # Seg Neutrophils # Man Monocytes # (Manual) PT INR Activated Clotting Time POC ABG pH POC ABG pCO2 POC ABG pO2 Sodium Potassium Chloride Carbon Dioxide BUN Creatinine Glucose POC Glucose 132 H 146 H 141 H Calcium Magnesium Direct Bilirubin AST ALT Alkaline Phosphatase Total Creatine Kinase CK-MB (CK-2) CK-MB (CK-2) Rel Index Troponin T C-Reactive Protein Total Protein Albumin Triglycerides Ur Specific [place] Urine WBC (Auto) Miscellaneous Test 04/26/17 04/27/17 04/27/17 23:52 05:40 05:40 WBC RBC 3.22 L Hgb 10.0 L Hct 29.9 L MCV MCH RDW Plt Count Lymph % (Auto) [place] % (Auto) Eos % (Auto) Baso % (Auto) Lymph # Baso # Seg Neutrophils % 76.6 H Lymphocytes % (Manual) Monocytes % (Manual) Nucleated RBC % Seg Neutrophils # Seg Neutrophils # Man Monocytes # (Manual) PT INR Activated Clotting Time POC ABG pH POC ABG pCO2 POC ABG pO2 Sodium Potassium Chloride Carbon Dioxide BUN Creatinine Glucose POC Glucose 140 H Calcium Magnesium Direct Bilirubin AST 66 H ALT 137 H Alkaline Phosphatase 169 H Total Creatine Kinase CK-MB (CK-2) CK-MB (CK-2) Rel Index Troponin T C-Reactive Protein Total Protein 6.2 L Albumin 2.6 L Triglycerides Ur Specific [place] Urine WBC (Auto) Miscellaneous Test 04/27/17 04/27/17 04/27/17 05:40 06:10 11:13 WBC RBC Hgb Hct MCV MCH RDW Plt Count Lymph % (Auto) [place] % (Auto) Eos % (Auto) Baso % (Auto) Lymph # Baso # Seg Neutrophils % Lymphocytes % (Manual) Monocytes % (Manual) Nucleated RBC % Seg Neutrophils # Seg Neutrophils # Man Monocytes # (Manual) PT INR Activated Clotting Time POC ABG pH POC ABG pCO2 POC ABG pO2 Sodium Potassium Chloride Carbon Dioxide BUN Creatinine 0.2 L Glucose 139 H POC Glucose 130 H 151 H Calcium Magnesium Direct Bilirubin AST ALT Alkaline Phosphatase Total Creatine Kinase CK-MB (CK-2) CK-MB (CK-2) Rel Index Troponin T C-Reactive Protein Total Protein Albumin Triglycerides Ur Specific [place] Urine WBC (Auto) Miscellaneous Test 04/27/17 04/27/17 04/28/17 17:37 23:19 05:24 WBC RBC Hgb Hct MCV MCH RDW Plt Count Lymph % (Auto) [place] % (Auto) Eos % (Auto) Baso % (Auto) Lymph # Baso # Seg Neutrophils % Lymphocytes % (Manual) Monocytes % (Manual) Nucleated RBC % Seg Neutrophils # Seg Neutrophils # Man Monocytes # (Manual) PT INR Activated Clotting Time POC ABG pH POC ABG pCO2 POC ABG pO2 Sodium Potassium Chloride Carbon Dioxide BUN Creatinine Glucose POC Glucose 159 H 130 H 132 H Calcium Magnesium Direct Bilirubin AST ALT Alkaline Phosphatase Total Creatine Kinase CK-MB (CK-2) CK-MB (CK-2) Rel Index Troponin T C-Reactive Protein Total Protein Albumin Triglycerides Ur Specific [place] Urine WBC (Auto) Miscellaneous Test 04/28/17 04/28/17 04/28/17 11:15 17:38 23:23 WBC RBC Hgb Hct MCV MCH RDW Plt Count Lymph % (Auto) [place] % (Auto) Eos % (Auto) Baso % (Auto) Lymph # Baso # Seg Neutrophils % Lymphocytes % (Manual) Monocytes % (Manual) Nucleated RBC % Seg Neutrophils # Seg Neutrophils # Man Monocytes # (Manual) PT INR Activated Clotting Time POC ABG pH POC ABG pCO2 POC ABG pO2 Sodium Potassium Chloride Carbon Dioxide BUN Creatinine Glucose POC Glucose 162 H 133 H 138 H Calcium Magnesium Direct Bilirubin AST ALT Alkaline Phosphatase Total Creatine Kinase CK-MB (CK-2) CK-MB (CK-2) Rel Index Troponin T C-Reactive Protein Total Protein Albumin Triglycerides Ur Specific [place] Urine WBC (Auto) Miscellaneous Test 04/29/17 04/29/17 04/29/17 05:15 12:55 17:21 WBC RBC Hgb Hct MCV MCH RDW Plt Count Lymph % (Auto) [place] % (Auto) Eos % (Auto) Baso % (Auto) Lymph # Baso # Seg Neutrophils % Lymphocytes % (Manual) Monocytes % (Manual) Nucleated RBC % Seg Neutrophils # Seg Neutrophils # Man Monocytes # (Manual) PT INR Activated Clotting Time POC ABG pH POC ABG pCO2 POC ABG pO2 Sodium Potassium Chloride Carbon Dioxide BUN Creatinine Glucose POC Glucose 135 H 127 H 138 H Calcium Magnesium Direct Bilirubin AST ALT Alkaline Phosphatase Total Creatine Kinase CK-MB (CK-2) CK-MB (CK-2) Rel Index Troponin T C-Reactive Protein Total Protein Albumin Triglycerides Ur Specific [place] Urine WBC (Auto) Miscellaneous Test 04/29/17 04/30/17 04/30/17 23:52 04:55 12:22 WBC RBC Hgb Hct MCV MCH RDW Plt Count Lymph % (Auto) [place] % (Auto) Eos % (Auto) Baso % (Auto) Lymph # Baso # Seg Neutrophils % Lymphocytes % (Manual) Monocytes % (Manual) Nucleated RBC % Seg Neutrophils # Seg Neutrophils # Man Monocytes # (Manual) PT INR Activated Clotting Time POC ABG pH POC ABG pCO2 POC ABG pO2 Sodium Potassium Chloride Carbon Dioxide BUN Creatinine Glucose POC Glucose 142 H 146 H 132 H Calcium Magnesium Direct Bilirubin AST ALT Alkaline Phosphatase Total Creatine Kinase CK-MB (CK-2) CK-MB (CK-2) Rel Index Troponin T C-Reactive Protein Total Protein Albumin Triglycerides Ur Specific [place] Urine WBC (Auto) Miscellaneous Test 04/30/17 04/30/17 04/30/17 14:25 17:47 18:20 WBC RBC Hgb Hct MCV MCH RDW Plt Count Lymph % (Auto) [place] % (Auto) Eos % (Auto) Baso % (Auto) Lymph # Baso # Seg Neutrophils % Lymphocytes % (Manual) Monocytes % (Manual) Nucleated RBC % Seg Neutrophils # Seg Neutrophils # Man Monocytes # (Manual) PT INR Activated Clotting Time POC ABG pH 7.551 H POC ABG pCO2 32.7 L POC ABG pO2 Sodium Potassium Chloride Carbon Dioxide BUN 21 H Creatinine 0.2 L Glucose 141 H POC Glucose 139 H Calcium Magnesium Direct Bilirubin AST ALT Alkaline Phosphatase Total Creatine Kinase CK-MB (CK-2) CK-MB (CK-2) Rel Index Troponin T C-Reactive Protein Total Protein Albumin Triglycerides Ur Specific [place] Urine WBC (Auto) Miscellaneous Test 05/01/17 05/01/17 05/01/17 01:26 05:30 05:30 WBC RBC 3.49 L Hgb 10.3 L Hct 31.9 L MCV MCH RDW Plt Count Lymph % (Auto) [place] % (Auto) 8.1 H Eos % (Auto) Baso % (Auto) Lymph # Baso # Seg Neutrophils % 71.3 H Lymphocytes % (Manual) Monocytes % (Manual) Nucleated RBC % Seg Neutrophils # Seg Neutrophils # Man Monocytes # (Manual) PT INR Activated Clotting Time POC ABG pH POC ABG pCO2 POC ABG pO2 Sodium 136 L Potassium Chloride 97.6 L Carbon Dioxide BUN Creatinine 0.2 L Glucose 123 H POC Glucose 116 H Calcium Magnesium Direct Bilirubin AST 71 H ALT 125 H Alkaline Phosphatase 158 H Total Creatine Kinase CK-MB (CK-2) CK-MB (CK-2) Rel Index Troponin T C-Reactive Protein Total Protein Albumin 2.6 L Triglycerides Ur Specific [place] Urine WBC (Auto) Miscellaneous Test 05/01/17 05/01/17 05/02/17 11:59 17:23 00:08 WBC RBC Hgb Hct MCV MCH RDW Plt Count Lymph % (Auto) [place] % (Auto) Eos % (Auto) Baso % (Auto) Lymph # Baso # Seg Neutrophils % Lymphocytes % (Manual) Monocytes % (Manual) Nucleated RBC % Seg Neutrophils # Seg Neutrophils # Man Monocytes # (Manual) PT INR Activated Clotting Time POC ABG pH POC ABG pCO2 POC ABG pO2 Sodium Potassium Chloride Carbon Dioxide BUN Creatinine Glucose POC Glucose 118 H 144 H 122 H Calcium Magnesium Direct Bilirubin AST ALT Alkaline Phosphatase Total Creatine Kinase CK-MB (CK-2) CK-MB (CK-2) Rel Index Troponin T C-Reactive Protein Total Protein Albumin Triglycerides Ur Specific [place] Urine WBC (Auto) Miscellaneous Test 05/02/17 05/02/17 05/02/17 05:50 11:21 17:48 WBC RBC Hgb Hct MCV MCH RDW Plt Count Lymph % (Auto) [place] % (Auto) Eos % (Auto) Baso % (Auto) Lymph # Baso # Seg Neutrophils % Lymphocytes % (Manual) Monocytes % (Manual) Nucleated RBC % Seg Neutrophils # Seg Neutrophils # Man Monocytes # (Manual) PT INR Activated Clotting Time POC ABG pH POC ABG pCO2 POC ABG pO2 Sodium Potassium Chloride Carbon Dioxide BUN Creatinine Glucose POC Glucose 120 H 121 H 140 H Calcium Magnesium Direct Bilirubin AST ALT Alkaline Phosphatase Total Creatine Kinase CK-MB (CK-2) CK-MB (CK-2) Rel Index Troponin T C-Reactive Protein Total Protein Albumin Triglycerides Ur Specific [place] Urine WBC (Auto) Miscellaneous Test 05/02/17 05/03/17 05/03/17 23:12 05:35 11:52 WBC RBC Hgb Hct MCV MCH RDW Plt Count Lymph % (Auto) [place] % (Auto) Eos % (Auto) Baso % (Auto) Lymph # Baso # Seg Neutrophils % Lymphocytes % (Manual) Monocytes % (Manual) Nucleated RBC % Seg Neutrophils # Seg Neutrophils # Man Monocytes # (Manual) PT INR Activated Clotting Time POC ABG pH POC ABG pCO2 POC ABG pO2 Sodium Potassium Chloride Carbon Dioxide BUN Creatinine Glucose POC Glucose 128 H 113 H 126 H Calcium Magnesium Direct Bilirubin AST ALT Alkaline Phosphatase Total Creatine Kinase CK-MB (CK-2) CK-MB (CK-2) Rel Index Troponin T C-Reactive Protein Total Protein Albumin Triglycerides Ur Specific [place] Urine WBC (Auto) Miscellaneous Test 05/03/17 05/03/17 05/04/17 17:29 23:26 04:55 WBC RBC Hgb Hct MCV MCH RDW Plt Count Lymph % (Auto) [place] % (Auto) Eos % (Auto) Baso % (Auto) Lymph # Baso # Seg Neutrophils % Lymphocytes % (Manual) Monocytes % (Manual) Nucleated RBC % Seg Neutrophils # Seg Neutrophils # Man Monocytes # (Manual) PT INR Activated Clotting Time POC ABG pH POC ABG pCO2 POC ABG pO2 Sodium Potassium Chloride Carbon Dioxide BUN Creatinine Glucose POC Glucose 141 H 129 H 126 H Calcium Magnesium Direct Bilirubin AST ALT Alkaline Phosphatase Total Creatine Kinase CK-MB (CK-2) CK-MB (CK-2) Rel Index Troponin T C-Reactive Protein Total Protein Albumin Triglycerides Ur Specific [place] Urine WBC (Auto) Miscellaneous Test 05/04/17 05/04/17 05/05/17 12:09 17:46 00:06 WBC RBC Hgb Hct MCV MCH RDW Plt Count Lymph % (Auto) [place] % (Auto) Eos % (Auto) Baso % (Auto) Lymph # Baso # Seg Neutrophils % Lymphocytes % (Manual) Monocytes % (Manual) Nucleated RBC % Seg Neutrophils # Seg Neutrophils # Man Monocytes # (Manual) PT INR Activated Clotting Time POC ABG pH POC ABG pCO2 POC ABG pO2 Sodium Potassium Chloride Carbon Dioxide BUN Creatinine Glucose POC Glucose 125 H 125 H 110 H Calcium Magnesium Direct Bilirubin AST ALT Alkaline Phosphatase Total Creatine Kinase CK-MB (CK-2) CK-MB (CK-2) Rel Index Troponin T C-Reactive Protein Total Protein Albumin Triglycerides Ur Specific [place] Urine WBC (Auto) Miscellaneous Test 05/05/17 05/05/17 05/05/17 05:48 11:41 16:19 WBC RBC Hgb Hct MCV MCH RDW Plt Count Lymph % (Auto) [place] % (Auto) Eos % (Auto) Baso % (Auto) Lymph # Baso # Seg Neutrophils % Lymphocytes % (Manual) Monocytes % (Manual) Nucleated RBC % Seg Neutrophils # Seg Neutrophils # Man Monocytes # (Manual) PT INR Activated Clotting Time POC ABG pH POC ABG pCO2 POC ABG pO2 Sodium Potassium Chloride Carbon Dioxide BUN Creatinine Glucose POC Glucose 124 H 122 H 120 H Calcium Magnesium Direct Bilirubin AST ALT Alkaline Phosphatase Total Creatine Kinase CK-MB (CK-2) CK-MB (CK-2) Rel Index Troponin T C-Reactive Protein Total Protein Albumin Triglycerides Ur Specific [place] Urine WBC (Auto) Miscellaneous Test 05/06/17 05/06/17 05/06/17 00:16 05:47 11:42 WBC RBC Hgb Hct MCV MCH RDW Plt Count Lymph % (Auto) [place] % (Auto) Eos % (Auto) Baso % (Auto) Lymph # Baso # Seg Neutrophils % Lymphocytes % (Manual) Monocytes % (Manual) Nucleated RBC % Seg Neutrophils # Seg Neutrophils # Man Monocytes # (Manual) PT INR Activated Clotting Time POC ABG pH POC ABG pCO2 POC ABG pO2 Sodium Potassium Chloride Carbon Dioxide BUN Creatinine Glucose POC Glucose 110 H 142 H 120 H Calcium Magnesium Direct Bilirubin AST ALT Alkaline Phosphatase Total Creatine Kinase CK-MB (CK-2) CK-MB (CK-2) Rel Index Troponin T C-Reactive Protein Total Protein Albumin Triglycerides Ur Specific [place] Urine WBC (Auto) Miscellaneous Test 05/06/17 05/07/17 05/07/17 17:46 00:07 05:28 WBC RBC Hgb Hct MCV MCH RDW Plt Count Lymph % (Auto) [place] % (Auto) Eos % (Auto) Baso % (Auto) Lymph # Baso # Seg Neutrophils % Lymphocytes % (Manual) Monocytes % (Manual) Nucleated RBC % Seg Neutrophils # Seg Neutrophils # Man Monocytes # (Manual) PT INR Activated Clotting Time POC ABG pH POC ABG pCO2 POC ABG pO2 Sodium Potassium Chloride Carbon Dioxide BUN Creatinine Glucose POC Glucose 127 H 145 H 124 H Calcium Magnesium Direct Bilirubin AST ALT Alkaline Phosphatase Total Creatine Kinase CK-MB (CK-2) CK-MB (CK-2) Rel Index Troponin T C-Reactive Protein Total Protein Albumin Triglycerides Ur Specific [place] Urine WBC (Auto) Miscellaneous Test 05/07/17 05/07/17 05/08/17 11:17 17:14 00:03 WBC RBC Hgb Hct MCV MCH RDW Plt Count Lymph % (Auto) [place] % (Auto) Eos % (Auto) Baso % (Auto) Lymph # Baso # Seg Neutrophils % Lymphocytes % (Manual) Monocytes % (Manual) Nucleated RBC % Seg Neutrophils # Seg Neutrophils # Man Monocytes # (Manual) PT INR Activated Clotting Time POC ABG pH POC ABG pCO2 POC ABG pO2 Sodium Potassium Chloride Carbon Dioxide BUN Creatinine Glucose POC Glucose 144 H 125 H 122 H Calcium Magnesium Direct Bilirubin AST ALT Alkaline Phosphatase Total Creatine Kinase CK-MB (CK-2) CK-MB (CK-2) Rel Index Troponin T C-Reactive Protein Total Protein Albumin Triglycerides Ur Specific [place] Urine WBC (Auto) Miscellaneous Test 05/08/17 05/08/17 05/08/17 05:43 12:07 18:02 WBC RBC Hgb Hct MCV MCH RDW Plt Count Lymph % (Auto) [place] % (Auto) Eos % (Auto) Baso % (Auto) Lymph # Baso # Seg Neutrophils % Lymphocytes % (Manual) Monocytes % (Manual) Nucleated RBC % Seg Neutrophils # Seg Neutrophils # Man Monocytes # (Manual) PT INR Activated Clotting Time POC ABG pH POC ABG pCO2 POC ABG pO2 Sodium Potassium Chloride Carbon Dioxide BUN Creatinine Glucose POC Glucose 117 H 114 H 129 H Calcium Magnesium Direct Bilirubin AST ALT Alkaline Phosphatase Total Creatine Kinase CK-MB (CK-2) CK-MB (CK-2) Rel Index Troponin T C-Reactive Protein Total Protein Albumin Triglycerides Ur Specific [place] Urine WBC (Auto) Miscellaneous Test 05/08/17 05/09/17 05/09/17 23:53 04:19 05:14 WBC RBC Hgb Hct MCV MCH RDW Plt Count Lymph % (Auto) [place] % (Auto) Eos % (Auto) Baso % (Auto) Lymph # Baso # Seg Neutrophils % Lymphocytes % (Manual) Monocytes % (Manual) Nucleated RBC % Seg Neutrophils # Seg Neutrophils # Man Monocytes # (Manual) PT INR Activated Clotting Time POC ABG pH 7.524 H POC ABG pCO2 34.7 L POC ABG pO2 107 H Sodium Potassium Chloride Carbon Dioxide BUN Creatinine Glucose POC Glucose 125 H 118 H Calcium Magnesium Direct Bilirubin AST ALT Alkaline Phosphatase Total Creatine Kinase CK-MB (CK-2) CK-MB (CK-2) Rel Index Troponin T C-Reactive Protein Total Protein Albumin Triglycerides Ur Specific [place] Urine WBC (Auto) Miscellaneous Test 05/10/17 05/11/17 05/11/17 23:54 05:48 23:50 WBC RBC Hgb Hct MCV MCH RDW Plt Count Lymph % (Auto) [place] % (Auto) Eos % (Auto) Baso % (Auto) Lymph # Baso # Seg Neutrophils % Lymphocytes % (Manual) Monocytes % (Manual) Nucleated RBC % Seg Neutrophils # Seg Neutrophils # Man Monocytes # (Manual) PT INR Activated Clotting Time POC ABG pH POC ABG pCO2 POC ABG pO2 Sodium Potassium Chloride Carbon Dioxide BUN Creatinine Glucose POC Glucose 126 H 137 H 130 H Calcium Magnesium Direct Bilirubin AST ALT Alkaline Phosphatase Total Creatine Kinase CK-MB (CK-2) CK-MB (CK-2) Rel Index Troponin T C-Reactive Protein Total Protein Albumin Triglycerides Ur Specific [place] Urine WBC (Auto) Miscellaneous Test 05/12/17 05/12/17 05/12/17 05:48 11:33 18:00 WBC RBC Hgb Hct MCV MCH RDW Plt Count Lymph % (Auto) [place] % (Auto) Eos % (Auto) Baso % (Auto) Lymph # Baso # Seg Neutrophils % Lymphocytes % (Manual) Monocytes % (Manual) Nucleated RBC % Seg Neutrophils # Seg Neutrophils # Man Monocytes # (Manual) PT INR Activated Clotting Time POC ABG pH POC ABG pCO2 POC ABG pO2 Sodium Potassium Chloride Carbon Dioxide BUN Creatinine Glucose POC Glucose 126 H 116 H 131 H Calcium Magnesium Direct Bilirubin AST ALT Alkaline Phosphatase Total Creatine Kinase CK-MB (CK-2) CK-MB (CK-2) Rel Index Troponin T C-Reactive Protein Total Protein Albumin Triglycerides Ur Specific [place] Urine WBC (Auto) Miscellaneous Test 05/14/17 05/15/17 05/15/17 11:45 11:27 17:42 WBC RBC Hgb Hct MCV MCH RDW Plt Count Lymph % (Auto) [place] % (Auto) Eos % (Auto) Baso % (Auto) Lymph # Baso # Seg Neutrophils % Lymphocytes % (Manual) Monocytes % (Manual) Nucleated RBC % Seg Neutrophils # Seg Neutrophils # Man Monocytes # (Manual) PT INR Activated Clotting Time POC ABG pH POC ABG pCO2 POC ABG pO2 Sodium Potassium Chloride Carbon Dioxide BUN Creatinine Glucose POC Glucose 123 H 129 H 125 H Calcium Magnesium Direct Bilirubin AST ALT Alkaline Phosphatase Total Creatine Kinase CK-MB (CK-2) CK-MB (CK-2) Rel Index Troponin T C-Reactive Protein Total Protein Albumin Triglycerides Ur Specific [place] Urine WBC (Auto) Miscellaneous Test 05/16/17 05/16/17 05/17/17 00:29 06:50 03:45 WBC RBC Hgb 11.7 L Hct 34.8 L MCV MCH RDW 15.5 H Plt Count Lymph % (Auto) [place] % (Auto) 7.7 H Eos % (Auto) Baso % (Auto) Lymph # Baso # Seg Neutrophils % 73.7 H Lymphocytes % (Manual) Monocytes % (Manual) Nucleated RBC % Seg Neutrophils # Seg Neutrophils # Man Monocytes # (Manual) PT INR Activated Clotting Time POC ABG pH POC ABG pCO2 POC ABG pO2 Sodium Potassium Chloride Carbon Dioxide BUN Creatinine Glucose POC Glucose 141 H 138 H Calcium Magnesium Direct Bilirubin AST ALT Alkaline Phosphatase Total Creatine Kinase CK-MB (CK-2) CK-MB (CK-2) Rel Index Troponin T C-Reactive Protein Total Protein Albumin Triglycerides Ur Specific [place] Urine WBC (Auto) Miscellaneous Test 05/17/17 05/20/17 05/23/17 03:45 17:31 23:09 WBC RBC Hgb Hct MCV MCH RDW Plt Count Lymph % (Auto) [place] % (Auto) Eos % (Auto) Baso % (Auto) Lymph # Baso # Seg Neutrophils % Lymphocytes % (Manual) Monocytes % (Manual) Nucleated RBC % Seg Neutrophils # Seg Neutrophils # Man Monocytes # (Manual) PT INR Activated Clotting Time POC ABG pH POC ABG pCO2 POC ABG pO2 Sodium Potassium Chloride Carbon Dioxide BUN Creatinine 0.2 L Glucose 131 H POC Glucose 116 H 122 H Calcium Magnesium Direct Bilirubin AST ALT Alkaline Phosphatase Total Creatine Kinase CK-MB (CK-2) CK-MB (CK-2) Rel Index Troponin T C-Reactive Protein Total Protein Albumin Triglycerides Ur Specific [place] Urine WBC (Auto) Miscellaneous Test 05/24/17 05:37 WBC RBC Hgb Hct MCV MCH RDW Plt Count Lymph % (Auto) [place] % (Auto) Eos % (Auto) Baso % (Auto) Lymph # Baso # Seg Neutrophils % Lymphocytes % (Manual) Monocytes % (Manual) Nucleated RBC % Seg Neutrophils # Seg Neutrophils # Man Monocytes # (Manual) PT INR Activated Clotting Time POC ABG pH POC ABG pCO2 POC ABG pO2 Sodium Potassium Chloride Carbon Dioxide BUN Creatinine Glucose POC Glucose 139 H Calcium Magnesium Direct Bilirubin AST ALT Alkaline Phosphatase Total Creatine Kinase CK-MB (CK-2) CK-MB (CK-2) Rel Index Troponin T C-Reactive Protein Total Protein Albumin Triglycerides Ur Specific [place] Urine WBC (Auto) Miscellaneous Test
--- NOTE | 2017-05-25 16:17 | Progress Note ---
Assessment and Plan Assessment and plan: 46 y/o male with out of hospital Vfib arrest, s/p LHC with stent placement, likely with anoxic encephalopathy, status post trach and peg. V. fib arrest status post CPR anoxic encephalopathy respiratory failure vent dependent tracheostomy and PEG placement MRSA pneumonia with status. poor prognosis, full CODE STATUS -- acute hypoxic hypercapnic respiratory failure; status post trach, vent dependent, PSV Trial --Hematuria; unknown etiology, resolved --Acute Cystitis treated with abx --s/p cardiac arrest /anoxic encephalopathy/vegetative state --Acute anterior STEMI; status post PCI, --s/p MRSA pneumonia/aspiration pneumonia, s/p full treatment, contact isolation --Hypertension; monitor blood pressures and adjust medications as needed -- Aspiration pneumonia; sepsis; received full course of antibiotics --Cardiogenic shock; off pressors, --s/p trach and PEG, continue PEG feeds --Severe Protein calorie malnutrition: Peg feeds and nutrition supplements --DVT prophylaxis; Lovenox Continue current management --Full CODE STATUS Poor prognosis family aware, Multiple family meetings in the past. Still awaiting family decision Family has unrealistic expectations, requests to continue full CODE STATUS Dismal prognosis and bad outcome is expected as explained by neurology and Dr. Ham (see previous notes); The high probability of a clinically significant, sudden or life threatening deterioration of the [NEUROLOGY, pulmonary] system(s) required my full and direct attention, intervention and personal management. The aggregate critical care time was [35] minutes. This time is in addition to time spent performing reported procedures but includes the following: [X] Data Review and interpretation [X] Patient assessment and monitoring of vital signs [X] Documentation [X] Medication orders and management History Interval history: Patient seen and examined, remains on full ventilatory support and unresponsive. No clinical change. unfortunately doubt any meaningful recovery Hospitalist Physical - Physical exam Narrative exam: General appearance: Present: no acute distress, well-nourished, other ( tracheostomy on vent) - EENT Eyes: Present: PERRL (spontaneous opening of eyes) - Neck Neck: Present: supple, other (tracheostomy) - Respiratory Respiratory effort: normal Respiratory: bilateral: diminished, rhonchi - Cardiovascular Rhythm: regular Heart Sounds: Present: S1 & S2 - Extremities Extremities: no ischemia Extremity abnormal: edema (trace edema) - Abdominal General gastrointestinal: soft, non-tender, non-distended, normal bowel sounds, other (PEG in place and functional) - Integumentary Integumentary: Present: clear, warm - Psychiatric Psychiatric: other (noncommunicative) - Neurologic Neurologic: other (unresponsive) - Constitutional Vitals: Temp Pulse Resp BP Pulse Ox 98.6 F 72 17 101/65 100 05/25/17 16:00 05/25/17 16:00 05/25/17 16:00 05/25/17 16:00 05/25/17 16:00 General appearance: Present: no acute distress, well-nourished, other ( tracheostomy on vent) Results - Labs CBC & Chem 7: 05/17/17 03:45 05/17/17 03:45 Labs: Laboratory Last Values WBC 9.4 K/mm3 (4.5-11.0) 05/17/17 03:45 RBC 3.85 M/mm3 (3.65-5.03) 05/17/17 03:45 Hgb 11.7 gm/dl (11.8-15.2) L 05/17/17 03:45 Hct 34.8 % (35.5-45.6) L 05/17/17 03:45 MCV 90 fl (84-94) 05/17/17 03:45 MCH 31 pg (28-32) 05/17/17 03:45 MCHC 34 % (32-34) 05/17/17 03:45 RDW 15.5 % (13.2-15.2) H 05/17/17 03:45 Plt Count 289 K/mm3 (140-440) 05/17/17 03:45 Lymph % (Auto) 15.6 % (13.4-35.0) 05/17/17 03:45 [place] % (Auto) 7.7 % (0.0-7.3) H 05/17/17 03:45 Eos % (Auto) 2.7 % (0.0-4.3) 05/17/17 03:45 Baso % (Auto) 0.3 % (0.0-1.8) 05/17/17 03:45 Lymph # 1.5 K/mm3 (1.2-5.4) 05/17/17 03:45 [place] # 0.7 K/mm3 (0.0-0.8) 05/17/17 03:45 Eos # 0.3 K/mm3 (0.0-0.4) 05/17/17 03:45 Baso # 0.0 K/mm3 (0.0-0.1) 05/17/17 03:45 Add Manual Diff Complete 03/30/17 03:50 Total Counted 100 03/30/17 03:50 Seg Neutrophils % 73.7 % (40.0-70.0) H 05/17/17 03:45 Seg Neuts % (Manual) 65.0 % (40.0-70.0) 03/30/17 03:50 Band Neutrophils % 17.0 % 03/30/17 03:50 Lymphocytes % (Manual) 7.0 % (13.4-35.0) L 03/30/17 03:50 Reactive Lymphs % (Man) 0 % 03/30/17 03:50 Monocytes % (Manual) 7.0 % (0.0-7.3) 03/30/17 03:50 Eosinophils % (Manual) 0 % (0.0-4.3) 03/30/17 03:50 Basophils % (Manual) 0 % (0.0-1.8) 03/30/17 03:50 Metamyelocytes % 4.0 % 03/30/17 03:50 Myelocytes % 0 % 03/30/17 03:50 Promyelocytes % 0 % 03/30/17 03:50 Blast Cells % 0 % 03/30/17 03:50 Nucleated RBC % Not Reportable 03/30/17 03:50 Seg Neutrophils # 6.9 K/mm3 (1.8-7.7) 05/17/17 03:45 Seg Neutrophils # Man 12.7 K/mm3 (1.8-7.7) H 03/30/17 03:50 Band Neutrophils # 3.3 K/mm3 03/30/17 03:50 Lymphocytes # (Manual) 1.4 K/mm3 (1.2-5.4) 03/30/17 03:50 Abs React Lymphs (Man) 0.0 K/mm3 03/30/17 03:50 Monocytes # (Manual) 1.4 K/mm3 (0.0-0.8) H 03/30/17 03:50 Eosinophils # (Manual) 0.0 K/mm3 (0.0-0.4) 03/30/17 03:50 Basophils # (Manual) 0.0 K/mm3 (0.0-0.1) 03/30/17 03:50 Metamyelocytes # 0.8 K/mm3 03/30/17 03:50 Myelocytes # 0.0 K/mm3 03/30/17 03:50 Promyelocytes # 0.0 K/mm3 03/30/17 03:50 Blast Cells # 0.0 K/mm3 03/30/17 03:50 WBC Morphology Not Reportable 03/30/17 03:50 Hypersegmented Neuts Not Reportable 03/30/17 03:50 Hyposegmented Neuts Not Reportable 03/30/17 03:50 Hypogranular Neuts Not Reportable 03/30/17 03:50 Smudge Cells Not Reportable 03/30/17 03:50 Toxic Granulation Not Reportable 03/30/17 03:50 Toxic Vacuolation Not Reportable 03/30/17 03:50 Dohle Bodies Not Reportable 03/30/17 03:50 Pelger-Huet Anomaly Not Reportable 03/30/17 03:50 Sherry Rods Not Reportable 03/30/17 03:50 Platelet Estimate Appears normal 03/30/17 03:50 Clumped Platelets Not Reportable 03/30/17 03:50 Plt Clumps, EDTA Not Reportable 03/30/17 03:50 Large Platelets Not Reportable 03/30/17 03:50 Giant Platelets Not Reportable 03/30/17 03:50 Platelet Satelliting Not Reportable 03/30/17 03:50 Plt Morphology Comment Not Reportable 03/30/17 03:50 RBC Morphology Not Reportable 03/30/17 03:50 Dimorphic RBCs Not Reportable 03/30/17 03:50 Polychromasia Not Reportable 03/30/17 03:50 Hypochromasia Not Reportable 03/30/17 03:50 Poikilocytosis Not Reportable 03/30/17 03:50 Anisocytosis Few 03/30/17 03:50 Microcytosis Not Reportable 03/30/17 03:50 Macrocytosis Not Reportable 03/30/17 03:50 Spherocytes Not Reportable 03/30/17 03:50 Pappenheimer Bodies Not Reportable 03/30/17 03:50 Sickle Cells Not Reportable 03/30/17 03:50 Target Cells Not Reportable 03/30/17 03:50 Tear Drop Cells Not Reportable 03/30/17 03:50 Ovalocytes Not Reportable 03/30/17 03:50 Helmet Cells Not Reportable 03/30/17 03:50 [place] Bodies Not Reportable 03/30/17 03:50 [place] Rings Not Reportable 03/30/17 03:50 Nusrat Cells Not Reportable 03/30/17 03:50 Bite Cells Not Reportable 03/30/17 03:50 Crenated Cell Not Reportable 03/30/17 03:50 Elliptocytes Not Reportable 03/30/17 03:50 Acanthocytes (Spur) Not Reportable 03/30/17 03:50 Rouleaux Not Reportable 03/30/17 03:50 Hemoglobin C Crystals Not Reportable 03/30/17 03:50 Schistocytes Not Reportable 03/30/17 03:50 Malaria parasites Not Reportable 03/30/17 03:50 [place]erm[place] Bodies Not Reportable 03/30/17 03:50 Hem Pathologist Commnt No 03/30/17 03:50 PT 14.9 Sec. (12.2-14.9) 04/10/17 04:16 INR 1.11 (0.87-1.13) 04/10/17 04:16 APTT 27.8 Sec. (24.2-36.6) 04/10/17 04:16 Activated Clotting Time 92 (74-137) 03/29/17 17:47 POC ABG pH 7.524 (7.35-7.45) H 05/09/17 04:19 POC ABG pCO2 34.7 (35-45) L 05/09/17 04:19 POC ABG pO2 107 (80-105) H 05/09/17 04:19 POC ABG HCO3 28.6 05/09/17 04:19 POC ABG Total CO2 30 05/09/17 04:19 POC ABG O2 Sat 99 05/09/17 04:19 POC ABG Base Excess 6 05/09/17 04:19 FiO2 25 % 05/09/17 04:19 Sodium 140 mmol/L (137-145) 05/17/17 03:45 Potassium 3.8 mmol/L (3.6-5.0) 05/17/17 03:45 Chloride 100.5 mmol/L (98-107) 05/17/17 03:45 Carbon Dioxide 25 mmol/L (22-30) 05/17/17 03:45 Anion Gap 18 mmol/L 05/17/17 03:45 BUN 17 mg/dL (9-20) 05/17/17 03:45 Creatinine 0.2 mg/dL (0.8-1.5) L 05/17/17 03:45 Estimated GFR > 60 ml/min 05/17/17 03:45 BUN/Creatinine Ratio 85 % 05/17/17 03:45 Glucose 131 mg/dL (75-100) H 05/17/17 03:45 POC Glucose 139 (70-105) H 05/24/17 05:37 Calcium 9.1 mg/dL (8.4-10.2) 05/17/17 03:45 Phosphorus 3.50 mg/dL (2.5-4.5) 04/13/17 04:45 Magnesium 1.80 mg/dL (1.7-2.3) 05/01/17 05:30 Total Bilirubin 0.60 mg/dL (0.1-1.2) 05/01/17 05:30 Direct Bilirubin < 0.2 mg/dL (0-0.2) 04/27/17 05:40 Indirect Bilirubin 0.3 mg/dL 04/25/17 04:51 AST 71 units/L (5-40) H 05/01/17 05:30 ALT 125 units/L (7-56) H 05/01/17 05:30 Alkaline Phosphatase 158 units/L (35-129) H 05/01/17 05:30 Total Creatine Kinase 1404 units/L (55-170) H 04/12/17 21:36 CK-MB (CK-2) 8.0 ng/mL (0.0-4.0) H 04/12/17 21:36 CK-MB (CK-2) Rel Index 0.5 (0-4) 04/12/17 21:36 Troponin T 0.767 ng/mL (0.00-0.029) H* 04/12/17 21:36 C-Reactive Protein 21.80 mg/dL (0.00-1.30) H 03/30/17 16:04 Total Protein 6.7 g/dL (6.3-8.2) 05/01/17 05:30 Albumin 2.6 g/dL (3.9-5) L 05/01/17 05:30 Albumin/Globulin Ratio 0.6 % 05/01/17 05:30 Triglycerides 151 mg/dL (2-149) H 04/01/17 04:29 Cholesterol 164 mg/dL (50-199) 03/29/17 19:52 LDL Cholesterol Direct 81 mg/dL (50-130) 03/29/17 19:52 HDL Cholesterol 44 mg/dL (40-59) 03/29/17 19:52 Cholesterol/HDL Ratio 3.72 % 03/29/17 19:52 Urine Color [place] (Yellow) 04/21/17 22:00 Urine Turbidity Clear (Clear) 04/21/17 22:00 Urine pH 5.0 (5.0-7.0) 04/21/17 22:00 Ur Specific [place] 1.029 (1.003-1.030) 04/21/17 22:00 Urine Protein 30 mg/dl mg/dL (Negative) 04/21/17 22:00 Urine Glucose (UA) Neg mg/dL (Negative) 04/21/17 22:00 Urine Ketones Neg mg/dL (Negative) 04/21/17 22:00 Urine Blood Mod (Negative) 04/21/17 22:00 Urine Nitrite Neg (Negative) 04/21/17 22:00 Urine Bilirubin Neg (Negative) 04/21/17 22:00 Urine Urobilinogen 4.0 mg/dL (<2.0) 04/21/17 22:00 Ur Leukocyte Esterase Neg (Negative) 04/21/17 22:00 Urine WBC (Auto) 10.0 /HPF (0.0-6.0) H 04/21/17 22:00 Urine RBC (Auto) 44.0 /HPF (0.0-6.0) 04/21/17 22:00 U Epithel Cells (Auto) < 1.0 /HPF (0-13.0) 04/21/17 22:00 Amorphous Crystals 1+ 03/30/17 09:45 Urine Mucus 3+ /HPF 04/21/17 22:00 Urine Opiates Screen Presumptive negative 03/30/17 09:45 Urine Methadone Screen Presumptive negative 03/30/17 09:45 Ur Barbiturates Screen Presumptive negative 03/30/17 09:45 Ur Phencyclidine Scrn Presumptive negative 03/30/17 09:45 Ur Amphetamines Screen Presumptive positive 03/30/17 09:45 U Benzodiazepines Scrn Presumptive positive 03/30/17 09:45 Urine Cocaine Screen Presumptive negative 03/30/17 09:45 U Marijuana (THC) Screen Presumptive negative 03/30/17 09:45 Drugs of Abuse Note Disclamer 03/30/17 09:45 Miscellaneous Test Flexitest 1 H 04/25/17 07:07 Blood Type O POSITIVE 03/29/17 11:35 Antibody Screen Negative 03/29/17 11:35
[2017-05-26] MEDS: PROTONIX FEEDTUBE SCH (09:24)
[2017-05-26] MEDS: PLAVIX PO SCH (09:24)
[2017-05-26] MEDS: ELIQUIS PO SCH ×2 (09:24→22:54)
[2017-05-26] MEDS: ASPIRIN PO SCH (09:25)
[2017-05-26] MEDS: LOPRESSOR PO SCH ×3 (09:26→22:57)
[2017-05-26] MEDS: CORDARONE PO SCH ×2 (09:27→22:57)
[2017-05-26] MEDS: ZESTRIL PO SCH (09:27)
--- NOTE | 2017-05-26 09:44 | Progress Note ---
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 No new recommendations for today. Patient remains full code and will continue PSV as tolerated with hopes of weaning to T-piece 1. PSV as tolerated with a goal to get to T-piece 2. Once tolerates T-piece for 24 hours, can consider transfer to floor, this is highly unlikely. 3. reviewed neurology note and agree with assessment 4. Continue all other cardiac meds 5. Overall prognosis still remains poor given amount of downtime during arrest. 6. Family meeting held, they feel the patient will overcome this current state as they have had other family members do the same. Very in depth conversation about the prognosis and current clinical state. I've made my best attempt to help them understand. Neuro agrees. Will continue supportive measures and attempt to wean. CCT 31 minutes. Subjective Date of service: 05/26/17 Principal diagnosis: coma,ARV,s/p arrest Interval history: No acute events. Mental status is unchanged. Still continues to have apnea and does not tolerate PSV for extended periods of time Objective Vital Signs - 12hr 05/25/17 05/25/17 05/25/17 22:00 23:00 23:19 Temperature Pulse Rate 68 81 74 Pulse Rate [ From Monitor] Respiratory 16 15 16 Rate Blood Pressure 101/62 104/70 104/70 O2 Sat by Pulse 99 100 100 Oximetry O2 Sat by Pulse Oximetry [ Assessment] 05/25/17 05/26/17 05/26/17 23:23 00:00 01:00 Temperature 98.4 F Pulse Rate 74 68 72 Pulse Rate [ From Monitor] Respiratory 22 20 Rate Blood Pressure 104/70 99/58 101/58 O2 Sat by Pulse 100 99 Oximetry O2 Sat by Pulse 100 Oximetry [ Assessment] 05/26/17 05/26/17 05/26/17 02:00 03:00 04:00 Temperature 98.4 F Pulse Rate 66 72 66 Pulse Rate [ From Monitor] Respiratory 19 20 14 Rate Blood Pressure 98/63 104/69 100/69 O2 Sat by Pulse 100 100 100 Oximetry O2 Sat by Pulse Oximetry [ Assessment] 05/26/17 05/26/17 05/26/17 05:00 06:00 07:00 Temperature Pulse Rate 66 79 69 Pulse Rate [ From Monitor] Respiratory 12 17 24 Rate Blood Pressure 111/64 120/77 119/75 O2 Sat by Pulse 100 100 Oximetry O2 Sat by Pulse Oximetry [ Assessment] 05/26/17 05/26/17 05/26/17 07:36 07:50 08:00 Temperature 98.3 F Pulse Rate 62 61 Pulse Rate [ 78 From Monitor] Respiratory 16 Rate Blood Pressure 119/75 119/75 O2 Sat by Pulse 100 100 100 Oximetry O2 Sat by Pulse 100 Oximetry [ Assessment] 05/26/17 05/26/17 05/26/17 08:01 08:20 09:26 Temperature Pulse Rate 80 63 71 Pulse Rate [ From Monitor] Respiratory 18 Rate Blood Pressure 121/78 121/78 109/64 O2 Sat by Pulse 99 99 Oximetry O2 Sat by Pulse Oximetry [ Assessment] 05/26/17 09:27 Temperature Pulse Rate 71 Pulse Rate [ From Monitor] Respiratory Rate Blood Pressure 109/64 O2 Sat by Pulse Oximetry O2 Sat by Pulse Oximetry [ Assessment] Constitutional: no acute distress, comatose Eyes: non-icteric ENT: oropharynx moist Neck: supple, other (tracheotomy ) Effort: normal Ascultation: Bilateral: clear, diminished breath sounds, other (coarse BS bilaterally) Percussion: Bilateral: not dull Cardiovascular: regular rate and rhythm Gastrointestinal: normoactive bowel sounds, soft, non-tender, non-distended Integumentary: normal Extremities: no cyanosis, no edema, pink and warm Neurologic: other (nonresponsive with flaccid extremities) Psychiatric: other (eyes open spontaneously but does not follow any voice commands, otherwise nonresponsive except for pain) CBC and BMP: 05/17/17 03:45 05/17/17 03:45 ABG, PT/INR, D-dimer: ABG POC ABG pH 7.524 (7.35-7.45) H 05/09/17 04:19 POC ABG pCO2 34.7 (35-45) L 05/09/17 04:19 POC ABG pO2 107 (80-105) H 05/09/17 04:19 POC ABG HCO3 28.6 05/09/17 04:19 POC ABG Total CO2 30 05/09/17 04:19 POC ABG O2 Sat 99 05/09/17 04:19 PT/INR, D-dimer PT 14.9 Sec. (12.2-14.9) 04/10/17 04:16 INR 1.11 (0.87-1.13) 04/10/17 04:16 Abnormal lab findings: Abnormal Labs 03/29/17 03/29/17 03/29/17 11:35 11:35 11:40 WBC RBC Hgb Hct MCV 98 H MCH 33 H RDW Plt Count Lymph % (Auto) [place] % (Auto) Eos % (Auto) Baso % (Auto) Lymph # Baso # Seg Neutrophils % Lymphocytes % (Manual) Monocytes % (Manual) 9.0 H Nucleated RBC % 1.0 H Seg Neutrophils # Seg Neutrophils # Man Monocytes # (Manual) 0.9 H PT 15.8 H INR 1.20 H Activated Clotting Time POC ABG pH POC ABG pCO2 POC ABG pO2 Sodium Potassium 2.7 L* Chloride 95.3 L Carbon Dioxide 17 L BUN Creatinine Glucose 435 H POC Glucose Calcium Magnesium Direct Bilirubin AST ALT Alkaline Phosphatase Total Creatine Kinase CK-MB (CK-2) CK-MB (CK-2) Rel Index Troponin T C-Reactive Protein Total Protein 6.1 L Albumin 3.5 L Triglycerides Ur Specific [facility] Urine WBC (Auto) Miscellaneous Test 03/29/17 03/29/17 03/29/17 12:34 13:10 13:25 WBC RBC Hgb Hct MCV MCH RDW Plt Count Lymph % (Auto) [place] % (Auto) Eos % (Auto) Baso % (Auto) Lymph # Baso # Seg Neutrophils % Lymphocytes % (Manual) Monocytes % (Manual) Nucleated RBC % Seg Neutrophils # Seg Neutrophils # Man Monocytes # (Manual) PT INR Activated Clotting Time 142 H 169 H 175 H POC ABG pH POC ABG pCO2 POC ABG pO2 Sodium Potassium Chloride Carbon Dioxide BUN Creatinine Glucose POC Glucose Calcium Magnesium Direct Bilirubin AST ALT Alkaline Phosphatase Total Creatine Kinase CK-MB (CK-2) CK-MB (CK-2) Rel Index Troponin T C-Reactive Protein Total Protein Albumin Triglycerides Ur Specific [facility] Urine WBC (Auto) Miscellaneous Test 03/29/17 03/29/17 03/29/17 14:50 15:18 19:52 WBC RBC Hgb Hct MCV MCH RDW Plt Count Lymph % (Auto) [place] % (Auto) Eos % (Auto) Baso % (Auto) Lymph # Baso # Seg Neutrophils % Lymphocytes % (Manual) Monocytes % (Manual) Nucleated RBC % Seg Neutrophils # Seg Neutrophils # Man Monocytes # (Manual) PT INR Activated Clotting Time 175 H POC ABG pH 7.293 L POC ABG pCO2 POC ABG pO2 602 H Sodium Potassium Chloride Carbon Dioxide BUN Creatinine Glucose POC Glucose Calcium Magnesium Direct Bilirubin AST ALT Alkaline Phosphatase Total Creatine Kinase 7263 H CK-MB (CK-2) > 300.0 H CK-MB (CK-2) Rel Index 4.1 H Troponin T 8.080 H* D C-Reactive Protein Total Protein Albumin Triglycerides 195 H Ur Specific [facility] Urine WBC (Auto) Miscellaneous Test 03/30/17 03/30/17 03/30/17 03:50 03:50 06:19 WBC 19.5 H RBC Hgb Hct MCV MCH RDW Plt Count Lymph % (Auto) [place] % (Auto) Eos % (Auto) Baso % (Auto) Lymph # Baso # Seg Neutrophils % Lymphocytes % (Manual) 7.0 L Monocytes % (Manual) Nucleated RBC % Seg Neutrophils # Seg Neutrophils # Man 12.7 H Monocytes # (Manual) 1.4 H PT INR Activated Clotting Time POC ABG pH POC ABG pCO2 28.2 L POC ABG pO2 108 H Sodium Potassium Chloride 108.9 H Carbon Dioxide 15 L BUN 25 H Creatinine Glucose 158 H POC Glucose Calcium 8.1 L Magnesium Direct Bilirubin AST ALT Alkaline Phosphatase Total Creatine Kinase 7963 H CK-MB (CK-2) > 300.0 H CK-MB (CK-2) Rel Index Troponin T 6.850 H* C-Reactive Protein Total Protein Albumin Triglycerides Ur Specific [facility] Urine WBC (Auto) Miscellaneous Test 03/30/17 03/30/17 03/31/17 09:45 16:04 02:19 WBC RBC Hgb Hct MCV MCH RDW Plt Count Lymph % (Auto) [place] % (Auto) Eos % (Auto) Baso % (Auto) Lymph # Baso # Seg Neutrophils % Lymphocytes % (Manual) Monocytes % (Manual) Nucleated RBC % Seg Neutrophils # Seg Neutrophils # Man Monocytes # (Manual) PT INR Activated Clotting Time POC ABG pH POC ABG pCO2 POC ABG pO2 Sodium Potassium Chloride Carbon Dioxide BUN Creatinine Glucose POC Glucose 137 H Calcium Magnesium Direct Bilirubin AST ALT Alkaline Phosphatase Total Creatine Kinase CK-MB (CK-2) CK-MB (CK-2) Rel Index Troponin T C-Reactive Protein 21.80 H Total Protein Albumin Triglycerides Ur Specific [facility] 1.031 H Urine WBC (Auto) Miscellaneous Test 03/31/17 03/31/17 03/31/17 03:57 06:54 09:22 WBC RBC Hgb Hct MCV MCH RDW Plt Count Lymph % (Auto) [place] % (Auto) Eos % (Auto) Baso % (Auto) Lymph # Baso # Seg Neutrophils % Lymphocytes % (Manual) Monocytes % (Manual) Nucleated RBC % Seg Neutrophils # Seg Neutrophils # Man Monocytes # (Manual) PT INR Activated Clotting Time POC ABG pH 7.475 H POC ABG pCO2 25.4 L POC ABG pO2 62 L Sodium Potassium Chloride Carbon Dioxide 19 L BUN 22 H Creatinine 0.6 L Glucose 148 H POC Glucose 143 H Calcium 8.3 L Magnesium Direct Bilirubin AST ALT Alkaline Phosphatase Total Creatine Kinase CK-MB (CK-2) CK-MB (CK-2) Rel Index Troponin T C-Reactive Protein Total Protein Albumin Triglycerides Ur Specific [facility] Urine WBC (Auto) Miscellaneous Test 03/31/17 03/31/17 03/31/17 11:40 17:47 23:38 WBC RBC Hgb Hct MCV MCH RDW Plt Count Lymph % (Auto) [place] % (Auto) Eos % (Auto) Baso % (Auto) Lymph # Baso # Seg Neutrophils % Lymphocytes % (Manual) Monocytes % (Manual) Nucleated RBC % Seg Neutrophils # Seg Neutrophils # Man Monocytes # (Manual) PT INR Activated Clotting Time POC ABG pH POC ABG pCO2 POC ABG pO2 Sodium Potassium Chloride Carbon Dioxide BUN Creatinine Glucose POC Glucose 127 H 137 H 148 H Calcium Magnesium Direct Bilirubin AST ALT Alkaline Phosphatase Total Creatine Kinase CK-MB (CK-2) CK-MB (CK-2) Rel Index Troponin T C-Reactive Protein Total Protein Albumin Triglycerides Ur Specific [facility] Urine WBC (Auto) Miscellaneous Test 04/01/17 04/01/17 04/01/17 04:29 05:01 11:54 WBC RBC Hgb Hct MCV MCH RDW Plt Count Lymph % (Auto) [place] % (Auto) Eos % (Auto) Baso % (Auto) Lymph # Baso # Seg Neutrophils % Lymphocytes % (Manual) Monocytes % (Manual) Nucleated RBC % Seg Neutrophils # Seg Neutrophils # Man Monocytes # (Manual) PT INR Activated Clotting Time POC ABG pH 7.513 H POC ABG pCO2 22.1 L POC ABG pO2 64 L Sodium Potassium Chloride Carbon Dioxide BUN Creatinine Glucose POC Glucose 121 H Calcium Magnesium Direct Bilirubin AST ALT Alkaline Phosphatase Total Creatine Kinase CK-MB (CK-2) CK-MB (CK-2) Rel Index Troponin T C-Reactive Protein Total Protein Albumin Triglycerides 151 H Ur Specific [facility] Urine WBC (Auto) Miscellaneous Test 04/01/17 04/02/17 04/02/17 18:17 00:11 04:52 WBC RBC Hgb Hct MCV MCH RDW Plt Count Lymph % (Auto) [place] % (Auto) Eos % (Auto) Baso % (Auto) Lymph # Baso # Seg Neutrophils % Lymphocytes % (Manual) Monocytes % (Manual) Nucleated RBC % Seg Neutrophils # Seg Neutrophils # Man Monocytes # (Manual) PT INR Activated Clotting Time POC ABG pH 7.524 H POC ABG pCO2 25.5 L POC ABG pO2 66 L Sodium Potassium Chloride Carbon Dioxide BUN Creatinine Glucose POC Glucose 117 H 122 H Calcium Magnesium Direct Bilirubin AST ALT Alkaline Phosphatase Total Creatine Kinase CK-MB (CK-2) CK-MB (CK-2) Rel Index Troponin T C-Reactive Protein Total Protein Albumin Triglycerides Ur Specific [facility] Urine WBC (Auto) Miscellaneous Test 04/02/17 04/02/17 04/02/17 05:18 10:41 12:19 WBC RBC Hgb Hct MCV MCH RDW Plt Count Lymph % (Auto) [place] % (Auto) Eos % (Auto) Baso % (Auto) Lymph # Baso # Seg Neutrophils % Lymphocytes % (Manual) Monocytes % (Manual) Nucleated RBC % Seg Neutrophils # Seg Neutrophils # Man Monocytes # (Manual) PT INR Activated Clotting Time POC ABG pH 7.534 H POC ABG pCO2 27.4 L POC ABG pO2 Sodium Potassium Chloride Carbon Dioxide BUN Creatinine Glucose POC Glucose 132 H 129 H Calcium Magnesium Direct Bilirubin AST ALT Alkaline Phosphatase Total Creatine Kinase CK-MB (CK-2) CK-MB (CK-2) Rel Index Troponin T C-Reactive Protein Total Protein Albumin Triglycerides Ur Specific [facility] Urine WBC (Auto) Miscellaneous Test 04/02/17 04/03/17 04/03/17 18:05 00:08 05:09 WBC RBC Hgb Hct MCV MCH RDW Plt Count Lymph % (Auto) [place] % (Auto) Eos % (Auto) Baso % (Auto) Lymph # Baso # Seg Neutrophils % Lymphocytes % (Manual) Monocytes % (Manual) Nucleated RBC % Seg Neutrophils # Seg Neutrophils # Man Monocytes # (Manual) PT INR Activated Clotting Time POC ABG pH 7.455 H POC ABG pCO2 33.2 L POC ABG pO2 120 H Sodium Potassium Chloride Carbon Dioxide BUN Creatinine Glucose POC Glucose 136 H 128 H Calcium Magnesium Direct Bilirubin AST ALT Alkaline Phosphatase Total Creatine Kinase CK-MB (CK-2) CK-MB (CK-2) Rel Index Troponin T C-Reactive Protein Total Protein Albumin Triglycerides Ur Specific [facility] Urine WBC (Auto) Miscellaneous Test 04/03/17 04/03/17 04/03/17 06:32 11:54 12:16 WBC 11.9 H RBC Hgb Hct MCV MCH RDW Plt Count 125 L Lymph % (Auto) 4.8 L [place] % (Auto) Eos % (Auto) Baso % (Auto) Lymph # 0.6 L Baso # Seg Neutrophils % 86.7 H Lymphocytes % (Manual) Monocytes % (Manual) Nucleated RBC % Seg Neutrophils # 10.3 H Seg Neutrophils # Man Monocytes # (Manual) PT INR Activated Clotting Time POC ABG pH POC ABG pCO2 POC ABG pO2 Sodium Potassium Chloride Carbon Dioxide BUN Creatinine Glucose POC Glucose 138 H 143 H Calcium Magnesium Direct Bilirubin AST ALT Alkaline Phosphatase Total Creatine Kinase CK-MB (CK-2) CK-MB (CK-2) Rel Index Troponin T C-Reactive Protein Total Protein Albumin Triglycerides Ur Specific [facility] Urine WBC (Auto) Miscellaneous Test 04/03/17 04/03/17 04/04/17 17:33 23:59 04:34 WBC RBC Hgb Hct MCV MCH RDW Plt Count Lymph % (Auto) [place] % (Auto) Eos % (Auto) Baso % (Auto) Lymph # Baso # Seg Neutrophils % Lymphocytes % (Manual) Monocytes % (Manual) Nucleated RBC % Seg Neutrophils # Seg Neutrophils # Man Monocytes # (Manual) PT INR Activated Clotting Time POC ABG pH 7.457 H POC ABG pCO2 29.8 L POC ABG pO2 76 L Sodium Potassium Chloride Carbon Dioxide BUN Creatinine Glucose POC Glucose 130 H 155 H Calcium Magnesium Direct Bilirubin AST ALT Alkaline Phosphatase Total Creatine Kinase CK-MB (CK-2) CK-MB (CK-2) Rel Index Troponin T C-Reactive Protein Total Protein Albumin Triglycerides Ur Specific [facility] Urine WBC (Auto) Miscellaneous Test 04/04/17 04/04/17 04/04/17 05:27 12:22 18:18 WBC RBC Hgb Hct MCV MCH RDW Plt Count Lymph % (Auto) [place] % (Auto) Eos % (Auto) Baso % (Auto) Lymph # Baso # Seg Neutrophils % Lymphocytes % (Manual) Monocytes % (Manual) Nucleated RBC % Seg Neutrophils # Seg Neutrophils # Man Monocytes # (Manual) PT INR Activated Clotting Time POC ABG pH POC ABG pCO2 POC ABG pO2 Sodium Potassium Chloride Carbon Dioxide BUN Creatinine Glucose POC Glucose 164 H 146 H 130 H Calcium Magnesium Direct Bilirubin AST ALT Alkaline Phosphatase Total Creatine Kinase CK-MB (CK-2) CK-MB (CK-2) Rel Index Troponin T C-Reactive Protein Total Protein Albumin Triglycerides Ur Specific [facility] Urine WBC (Auto) Miscellaneous Test 04/05/17 04/05/17 04/05/17 04:43 05:28 11:36 WBC RBC Hgb Hct MCV MCH RDW Plt Count Lymph % (Auto) [place] % (Auto) Eos % (Auto) Baso % (Auto) Lymph # Baso # Seg Neutrophils % Lymphocytes % (Manual) Monocytes % (Manual) Nucleated RBC % Seg Neutrophils # Seg Neutrophils # Man Monocytes # (Manual) PT INR Activated Clotting Time POC ABG pH 7.479 H POC ABG pCO2 33.5 L POC ABG pO2 76 L Sodium Potassium Chloride Carbon Dioxide BUN Creatinine Glucose POC Glucose 145 H 136 H Calcium Magnesium Direct Bilirubin AST ALT Alkaline Phosphatase Total Creatine Kinase CK-MB (CK-2) CK-MB (CK-2) Rel Index Troponin T C-Reactive Protein Total Protein Albumin Triglycerides Ur Specific [facility] Urine WBC (Auto) Miscellaneous Test 04/05/17 04/06/17 04/06/17 17:58 00:16 05:26 WBC RBC Hgb Hct MCV MCH RDW Plt Count Lymph % (Auto) [place] % (Auto) Eos % (Auto) Baso % (Auto) Lymph # Baso # Seg Neutrophils % Lymphocytes % (Manual) Monocytes % (Manual) Nucleated RBC % Seg Neutrophils # Seg Neutrophils # Man Monocytes # (Manual) PT INR Activated Clotting Time POC ABG pH POC ABG pCO2 POC ABG pO2 Sodium Potassium Chloride Carbon Dioxide BUN Creatinine Glucose POC Glucose 130 H 159 H 146 H Calcium Magnesium Direct Bilirubin AST ALT Alkaline Phosphatase Total Creatine Kinase CK-MB (CK-2) CK-MB (CK-2) Rel Index Troponin T C-Reactive Protein Total Protein Albumin Triglycerides Ur Specific [facility] Urine WBC (Auto) Miscellaneous Test 04/06/17 04/06/17 04/07/17 13:11 16:54 11:45 WBC RBC Hgb Hct MCV MCH RDW Plt Count Lymph % (Auto) [place] % (Auto) Eos % (Auto) Baso % (Auto) Lymph # Baso # Seg Neutrophils % Lymphocytes % (Manual) Monocytes % (Manual) Nucleated RBC % Seg Neutrophils # Seg Neutrophils # Man Monocytes # (Manual) PT INR Activated Clotting Time POC ABG pH 7.517 H POC ABG pCO2 32.1 L POC ABG pO2 Sodium Potassium Chloride Carbon Dioxide BUN Creatinine Glucose POC Glucose 132 H 123 H Calcium Magnesium Direct Bilirubin AST ALT Alkaline Phosphatase Total Creatine Kinase CK-MB (CK-2) CK-MB (CK-2) Rel Index Troponin T C-Reactive Protein Total Protein Albumin Triglycerides Ur Specific [facility] Urine WBC (Auto) Miscellaneous Test 04/07/17 04/07/17 04/07/17 12:51 17:40 23:55 WBC RBC Hgb Hct MCV MCH RDW Plt Count Lymph % (Auto) [place] % (Auto) Eos % (Auto) Baso % (Auto) Lymph # Baso # Seg Neutrophils % Lymphocytes % (Manual) Monocytes % (Manual) Nucleated RBC % Seg Neutrophils # Seg Neutrophils # Man Monocytes # (Manual) PT INR Activated Clotting Time POC ABG pH POC ABG pCO2 POC ABG pO2 Sodium Potassium Chloride Carbon Dioxide BUN Creatinine Glucose POC Glucose 138 H 154 H 143 H Calcium Magnesium Direct Bilirubin AST ALT Alkaline Phosphatase Total Creatine Kinase CK-MB (CK-2) CK-MB (CK-2) Rel Index Troponin T C-Reactive Protein Total Protein Albumin Triglycerides Ur Specific [facility] Urine WBC (Auto) Miscellaneous Test 04/08/17 04/08/17 04/08/17 05:27 11:14 17:44 WBC RBC Hgb Hct MCV MCH RDW Plt Count Lymph % (Auto) [place] % (Auto) Eos % (Auto) Baso % (Auto) Lymph # Baso # Seg Neutrophils % Lymphocytes % (Manual) Monocytes % (Manual) Nucleated RBC % Seg Neutrophils # Seg Neutrophils # Man Monocytes # (Manual) PT INR Activated Clotting Time POC ABG pH POC ABG pCO2 POC ABG pO2 Sodium Potassium Chloride Carbon Dioxide BUN Creatinine Glucose POC Glucose 142 H 153 H 129 H Calcium Magnesium Direct Bilirubin AST ALT Alkaline Phosphatase Total Creatine Kinase CK-MB (CK-2) CK-MB (CK-2) Rel Index Troponin T C-Reactive Protein Total Protein Albumin Triglycerides Ur Specific [facility] Urine WBC (Auto) Miscellaneous Test 04/09/17 04/09/17 04/09/17 08:20 11:21 17:37 WBC RBC Hgb Hct MCV MCH RDW Plt Count Lymph % (Auto) [place] % (Auto) Eos % (Auto) Baso % (Auto) Lymph # Baso # Seg Neutrophils % Lymphocytes % (Manual) Monocytes % (Manual) Nucleated RBC % Seg Neutrophils # Seg Neutrophils # Man Monocytes # (Manual) PT INR Activated Clotting Time POC ABG pH POC ABG pCO2 POC ABG pO2 Sodium 147 H Potassium Chloride 108.8 H Carbon Dioxide BUN 39 H Creatinine 0.5 L Glucose 138 H POC Glucose 152 H 109 H Calcium Magnesium Direct Bilirubin AST ALT Alkaline Phosphatase Total Creatine Kinase CK-MB (CK-2) CK-MB (CK-2) Rel Index Troponin T C-Reactive Protein Total Protein Albumin Triglycerides Ur Specific [facility] Urine WBC (Auto) Miscellaneous Test 04/10/17 04/10/17 04/10/17 00:13 04:16 04:16 WBC RBC Hgb 11.5 L Hct MCV 96 H MCH RDW Plt Count 103 L Lymph % (Auto) 11.1 L [place] % (Auto) Eos % (Auto) Baso % (Auto) Lymph # Baso # Seg Neutrophils % 81.5 H Lymphocytes % (Manual) Monocytes % (Manual) Nucleated RBC % Seg Neutrophils # 8.8 H Seg Neutrophils # Man Monocytes # (Manual) PT INR Activated Clotting Time POC ABG pH POC ABG pCO2 POC ABG pO2 Sodium 148 H Potassium Chloride 109.0 H Carbon Dioxide BUN 36 H Creatinine 0.5 L Glucose 131 H POC Glucose 127 H Calcium 8.1 L Magnesium 2.40 H Direct Bilirubin AST 206 H ALT 228 H Alkaline Phosphatase 178 H Total Creatine Kinase CK-MB (CK-2) CK-MB (CK-2) Rel Index Troponin T C-Reactive Protein Total Protein Albumin 2.8 L Triglycerides Ur Specific [facility] Urine WBC (Auto) Miscellaneous Test 04/10/17 04/10/17 04/10/17 06:01 11:57 18:27 WBC RBC Hgb Hct MCV MCH RDW Plt Count Lymph % (Auto) [place] % (Auto) Eos % (Auto) Baso % (Auto) Lymph # Baso # Seg Neutrophils % Lymphocytes % (Manual) Monocytes % (Manual) Nucleated RBC % Seg Neutrophils # Seg Neutrophils # Man Monocytes # (Manual) PT INR Activated Clotting Time POC ABG pH POC ABG pCO2 POC ABG pO2 Sodium Potassium Chloride Carbon Dioxide BUN Creatinine Glucose POC Glucose 108 H 154 H 130 H Calcium Magnesium Direct Bilirubin AST ALT Alkaline Phosphatase Total Creatine Kinase CK-MB (CK-2) CK-MB (CK-2) Rel Index Troponin T C-Reactive Protein Total Protein Albumin Triglycerides Ur Specific [facility] Urine WBC (Auto) Miscellaneous Test 04/11/17 04/11/17 04/12/17 12:25 17:10 00:22 WBC RBC Hgb Hct MCV MCH RDW Plt Count Lymph % (Auto) [place] % (Auto) Eos % (Auto) Baso % (Auto) Lymph # Baso # Seg Neutrophils % Lymphocytes % (Manual) Monocytes % (Manual) Nucleated RBC % Seg Neutrophils # Seg Neutrophils # Man Monocytes # (Manual) PT INR Activated Clotting Time POC ABG pH POC ABG pCO2 POC ABG pO2 Sodium Potassium Chloride Carbon Dioxide BUN Creatinine Glucose POC Glucose 107 H 129 H 128 H Calcium Magnesium Direct Bilirubin AST ALT Alkaline Phosphatase Total Creatine Kinase CK-MB (CK-2) CK-MB (CK-2) Rel Index Troponin T C-Reactive Protein Total Protein Albumin Triglycerides Ur Specific [facility] Urine WBC (Auto) Miscellaneous Test 04/12/17 04/12/17 04/12/17 05:00 11:57 17:47 WBC RBC Hgb Hct MCV MCH RDW Plt Count Lymph % (Auto) [place] % (Auto) Eos % (Auto) Baso % (Auto) Lymph # Baso # Seg Neutrophils % Lymphocytes % (Manual) Monocytes % (Manual) Nucleated RBC % Seg Neutrophils # Seg Neutrophils # Man Monocytes # (Manual) PT INR Activated Clotting Time POC ABG pH POC ABG pCO2 POC ABG pO2 Sodium Potassium Chloride Carbon Dioxide BUN Creatinine Glucose POC Glucose 140 H 142 H Calcium Magnesium Direct Bilirubin AST 158 H ALT 184 H Alkaline Phosphatase 170 H Total Creatine Kinase CK-MB (CK-2) CK-MB (CK-2) Rel Index Troponin T C-Reactive Protein Total Protein Albumin 2.8 L Triglycerides Ur Specific [facility] Urine WBC (Auto) Miscellaneous Test 04/12/17 04/12/17 04/13/17 21:36 21:36 01:37 WBC RBC Hgb Hct MCV MCH RDW Plt Count Lymph % (Auto) [place] % (Auto) Eos % (Auto) Baso % (Auto) Lymph # Baso # Seg Neutrophils % Lymphocytes % (Manual) Monocytes % (Manual) Nucleated RBC % Seg Neutrophils # Seg Neutrophils # Man Monocytes # (Manual) PT INR Activated Clotting Time POC ABG pH POC ABG pCO2 POC ABG pO2 Sodium Potassium Chloride Carbon Dioxide BUN Creatinine Glucose POC Glucose 126 H Calcium Magnesium Direct Bilirubin AST ALT Alkaline Phosphatase Total Creatine Kinase 1404 H CK-MB (CK-2) 8.0 H CK-MB (CK-2) Rel Index Troponin T 0.767 H* C-Reactive Protein Total Protein Albumin Triglycerides Ur Specific [facility] Urine WBC (Auto) Miscellaneous Test 04/13/17 04/13/17 04/13/17 04:45 04:52 12:17 WBC RBC Hgb Hct MCV MCH RDW Plt Count Lymph % (Auto) [place] % (Auto) Eos % (Auto) Baso % (Auto) Lymph # Baso # Seg Neutrophils % Lymphocytes % (Manual) Monocytes % (Manual) Nucleated RBC % Seg Neutrophils # Seg Neutrophils # Man Monocytes # (Manual) PT INR Activated Clotting Time POC ABG pH POC ABG pCO2 POC ABG pO2 Sodium 148 H Potassium Chloride 112.8 H Carbon Dioxide BUN 33 H Creatinine 0.4 L Glucose 121 H POC Glucose 126 H 149 H Calcium Magnesium Direct Bilirubin AST 160 H ALT 189 H Alkaline Phosphatase 166 H Total Creatine Kinase CK-MB (CK-2) CK-MB (CK-2) Rel Index Troponin T C-Reactive Protein Total Protein Albumin 2.6 L Triglycerides Ur Specific [facility] Urine WBC (Auto) Miscellaneous Test 04/13/17 04/14/17 04/14/17 17:45 00:20 00:45 WBC RBC Hgb Hct MCV MCH RDW Plt Count Lymph % (Auto) [place] % (Auto) Eos % (Auto) Baso % (Auto) Lymph # Baso # Seg Neutrophils % Lymphocytes % (Manual) Monocytes % (Manual) Nucleated RBC % Seg Neutrophils # Seg Neutrophils # Man Monocytes # (Manual) PT INR Activated Clotting Time POC ABG pH POC ABG pCO2 POC ABG pO2 Sodium Potassium Chloride Carbon Dioxide BUN Creatinine Glucose POC Glucose 130 H 144 H 144 H Calcium Magnesium Direct Bilirubin AST ALT Alkaline Phosphatase Total Creatine Kinase CK-MB (CK-2) CK-MB (CK-2) Rel Index Troponin T C-Reactive Protein Total Protein Albumin Triglycerides Ur Specific [facility] Urine WBC (Auto) Miscellaneous Test 04/14/17 04/14/17 04/14/17 05:40 11:06 11:31 WBC RBC Hgb Hct MCV MCH RDW Plt Count Lymph % (Auto) [place] % (Auto) Eos % (Auto) Baso % (Auto) Lymph # Baso # Seg Neutrophils % Lymphocytes % (Manual) Monocytes % (Manual) Nucleated RBC % Seg Neutrophils # Seg Neutrophils # Man Monocytes # (Manual) PT INR Activated Clotting Time POC ABG pH POC ABG pCO2 POC ABG pO2 Sodium Potassium Chloride Carbon Dioxide BUN Creatinine Glucose POC Glucose 139 H 123 H Calcium Magnesium Direct Bilirubin AST ALT Alkaline Phosphatase Total Creatine Kinase CK-MB (CK-2) CK-MB (CK-2) Rel Index Troponin T C-Reactive Protein Total Protein Albumin Triglycerides Ur Specific [facility] 1.033 H Urine WBC (Auto) > 182.0 H Miscellaneous Test 04/14/17 04/14/17 04/15/17 18:00 23:52 05:15 WBC 12.5 H RBC 3.38 L Hgb 10.6 L Hct 32.7 L MCV 97 H MCH RDW Plt Count 107 L Lymph % (Auto) 8.7 L [place] % (Auto) Eos % (Auto) Baso % (Auto) Lymph # 1.1 L Baso # Seg Neutrophils % 86.1 H Lymphocytes % (Manual) Monocytes % (Manual) Nucleated RBC % Seg Neutrophils # 10.7 H Seg Neutrophils # Man Monocytes # (Manual) PT INR Activated Clotting Time POC ABG pH POC ABG pCO2 POC ABG pO2 Sodium Potassium Chloride Carbon Dioxide BUN Creatinine Glucose POC Glucose 133 H 133 H Calcium Magnesium Direct Bilirubin AST ALT Alkaline Phosphatase Total Creatine Kinase CK-MB (CK-2) CK-MB (CK-2) Rel Index Troponin T C-Reactive Protein Total Protein Albumin Triglycerides Ur Specific [facility] Urine WBC (Auto) Miscellaneous Test 04/15/17 04/15/17 04/15/17 05:15 05:25 11:50 WBC RBC Hgb Hct MCV MCH RDW Plt Count Lymph % (Auto) [place] % (Auto) Eos % (Auto) Baso % (Auto) Lymph # Baso # Seg Neutrophils % Lymphocytes % (Manual) Monocytes % (Manual) Nucleated RBC % Seg Neutrophils # Seg Neutrophils # Man Monocytes # (Manual) PT INR Activated Clotting Time POC ABG pH POC ABG pCO2 POC ABG pO2 Sodium 149 H Potassium 3.5 L Chloride 114.1 H Carbon Dioxide 21 L BUN 29 H Creatinine 0.4 L Glucose 128 H POC Glucose 133 H 107 H Calcium 8.3 L Magnesium Direct Bilirubin 0.4 H AST 149 H ALT 182 H Alkaline Phosphatase 143 H Total Creatine Kinase CK-MB (CK-2) CK-MB (CK-2) Rel Index Troponin T C-Reactive Protein Total Protein Albumin 2.5 L Triglycerides Ur Specific [facility] Urine WBC (Auto) Miscellaneous Test 04/15/17 04/16/17 04/16/17 16:55 00:02 03:17 WBC RBC 3.39 L Hgb 10.5 L Hct 32.4 L MCV 96 H MCH RDW Plt Count 106 L Lymph % (Auto) 6.7 L [place] % (Auto) Eos % (Auto) Baso % (Auto) Lymph # 0.6 L Baso # Seg Neutrophils % 86.8 H Lymphocytes % (Manual) Monocytes % (Manual) Nucleated RBC % Seg Neutrophils # 8.2 H Seg Neutrophils # Man Monocytes # (Manual) PT INR Activated Clotting Time POC ABG pH POC ABG pCO2 POC ABG pO2 Sodium Potassium Chloride Carbon Dioxide BUN Creatinine Glucose POC Glucose 146 H 148 H Calcium Magnesium Direct Bilirubin AST ALT Alkaline Phosphatase Total Creatine Kinase CK-MB (CK-2) CK-MB (CK-2) Rel Index Troponin T C-Reactive Protein Total Protein Albumin Triglycerides Ur Specific [facility] Urine WBC (Auto) Miscellaneous Test 04/16/17 04/16/17 04/16/17 03:17 05:19 11:13 WBC RBC Hgb Hct MCV MCH RDW Plt Count Lymph % (Auto) [place] % (Auto) Eos % (Auto) Baso % (Auto) Lymph # Baso # Seg Neutrophils % Lymphocytes % (Manual) Monocytes % (Manual) Nucleated RBC % Seg Neutrophils # Seg Neutrophils # Man Monocytes # (Manual) PT INR Activated Clotting Time POC ABG pH POC ABG pCO2 POC ABG pO2 Sodium 149 H Potassium Chloride 111.1 H Carbon Dioxide 20 L BUN 27 H Creatinine 0.3 L Glucose 156 H POC Glucose 171 H 169 H Calcium 8.3 L Magnesium Direct Bilirubin AST ALT Alkaline Phosphatase Total Creatine Kinase CK-MB (CK-2) CK-MB (CK-2) Rel Index Troponin T C-Reactive Protein Total Protein Albumin Triglycerides Ur Specific [facility] Urine WBC (Auto) Miscellaneous Test 04/16/17 04/17/17 04/17/17 17:03 00:00 05:09 WBC RBC Hgb Hct MCV MCH RDW Plt Count Lymph % (Auto) [place] % (Auto) Eos % (Auto) Baso % (Auto) Lymph # Baso # Seg Neutrophils % Lymphocytes % (Manual) Monocytes % (Manual) Nucleated RBC % Seg Neutrophils # Seg Neutrophils # Man Monocytes # (Manual) PT INR Activated Clotting Time POC ABG pH POC ABG pCO2 POC ABG pO2 Sodium Potassium Chloride Carbon Dioxide BUN Creatinine Glucose POC Glucose 151 H 165 H 145 H Calcium Magnesium Direct Bilirubin AST ALT Alkaline Phosphatase Total Creatine Kinase CK-MB (CK-2) CK-MB (CK-2) Rel Index Troponin T C-Reactive Protein Total Protein Albumin Triglycerides Ur Specific [facility] Urine WBC (Auto) Miscellaneous Test 04/17/17 04/17/17 04/18/17 11:38 17:47 00:01 WBC RBC Hgb Hct MCV MCH RDW Plt Count Lymph % (Auto) [place] % (Auto) Eos % (Auto) Baso % (Auto) Lymph # Baso # Seg Neutrophils % Lymphocytes % (Manual) Monocytes % (Manual) Nucleated RBC % Seg Neutrophils # Seg Neutrophils # Man Monocytes # (Manual) PT INR Activated Clotting Time POC ABG pH POC ABG pCO2 POC ABG pO2 Sodium Potassium Chloride Carbon Dioxide BUN Creatinine Glucose POC Glucose 170 H 161 H 131 H Calcium Magnesium Direct Bilirubin AST ALT Alkaline Phosphatase Total Creatine Kinase CK-MB (CK-2) CK-MB (CK-2) Rel Index Troponin T C-Reactive Protein Total Protein Albumin Triglycerides Ur Specific [facility] Urine WBC (Auto) Miscellaneous Test 04/18/17 04/18/17 04/18/17 03:55 03:55 05:30 WBC RBC 3.05 L Hgb 9.8 L Hct 29.0 L MCV 95 H MCH RDW Plt Count 113 L Lymph % (Auto) [place] % (Auto) Eos % (Auto) 5.3 H Baso % (Auto) Lymph # Baso # Seg Neutrophils % 71.5 H Lymphocytes % (Manual) Monocytes % (Manual) Nucleated RBC % Seg Neutrophils # Seg Neutrophils # Man Monocytes # (Manual) PT INR Activated Clotting Time POC ABG pH 7.460 H POC ABG pCO2 30.8 L POC ABG pO2 129 H Sodium Potassium Chloride Carbon Dioxide 21 L BUN 25 H Creatinine 0.4 L Glucose 123 H POC Glucose Calcium 8.3 L Magnesium Direct Bilirubin AST ALT Alkaline Phosphatase Total Creatine Kinase CK-MB (CK-2) CK-MB (CK-2) Rel Index Troponin T C-Reactive Protein Total Protein Albumin Triglycerides Ur Specific [facility] Urine WBC (Auto) Miscellaneous Test 04/18/17 04/18/17 04/19/17 17:10 23:40 04:36 WBC RBC 3.21 L Hgb 10.2 L Hct 30.4 L MCV 95 H MCH RDW Plt Count 131 L Lymph % (Auto) 12.1 L [place] % (Auto) Eos % (Auto) 4.7 H Baso % (Auto) 2.4 H Lymph # 0.9 L Baso # 0.2 H Seg Neutrophils % 75.0 H Lymphocytes % (Manual) Monocytes % (Manual) Nucleated RBC % Seg Neutrophils # Seg Neutrophils # Man Monocytes # (Manual) PT INR Activated Clotting Time POC ABG pH POC ABG pCO2 POC ABG pO2 Sodium Potassium Chloride Carbon Dioxide BUN Creatinine Glucose POC Glucose 135 H 157 H Calcium Magnesium Direct Bilirubin AST ALT Alkaline Phosphatase Total Creatine Kinase CK-MB (CK-2) CK-MB (CK-2) Rel Index Troponin T C-Reactive Protein Total Protein Albumin Triglycerides Ur Specific [facility] Urine WBC (Auto) Miscellaneous Test 04/19/17 04/19/17 04/19/17 04:36 05:12 06:50 WBC RBC Hgb Hct MCV MCH RDW Plt Count Lymph % (Auto) [place] % (Auto) Eos % (Auto) Baso % (Auto) Lymph # Baso # Seg Neutrophils % Lymphocytes % (Manual) Monocytes % (Manual) Nucleated RBC % Seg Neutrophils # Seg Neutrophils # Man Monocytes # (Manual) PT INR Activated Clotting Time POC ABG pH 7.516 H POC ABG pCO2 28.0 L POC ABG pO2 Sodium Potassium Chloride Carbon Dioxide 21 L BUN 23 H Creatinine 0.2 L Glucose 137 H POC Glucose 131 H Calcium 7.9 L Magnesium Direct Bilirubin AST ALT Alkaline Phosphatase Total Creatine Kinase CK-MB (CK-2) CK-MB (CK-2) Rel Index Troponin T C-Reactive Protein Total Protein Albumin Triglycerides Ur Specific [facility] Urine WBC (Auto) Miscellaneous Test 04/19/17 04/19/17 04/20/17 12:36 17:42 00:12 WBC RBC Hgb Hct MCV MCH RDW Plt Count Lymph % (Auto) [place] % (Auto) Eos % (Auto) Baso % (Auto) Lymph # Baso # Seg Neutrophils % Lymphocytes % (Manual) Monocytes % (Manual) Nucleated RBC % Seg Neutrophils # Seg Neutrophils # Man Monocytes # (Manual) PT INR Activated Clotting Time POC ABG pH POC ABG pCO2 POC ABG pO2 Sodium Potassium Chloride Carbon Dioxide BUN Creatinine Glucose POC Glucose 128 H 140 H 132 H Calcium Magnesium Direct Bilirubin AST ALT Alkaline Phosphatase Total Creatine Kinase CK-MB (CK-2) CK-MB (CK-2) Rel Index Troponin T C-Reactive Protein Total Protein Albumin Triglycerides Ur Specific [facility] Urine WBC (Auto) Miscellaneous Test 04/20/17 04/20/17 04/20/17 03:35 03:35 05:10 WBC RBC 3.34 L Hgb 10.4 L Hct 31.6 L MCV 95 H MCH RDW Plt Count Lymph % (Auto) 12.9 L [place] % (Auto) Eos % (Auto) Baso % (Auto) Lymph # Baso # Seg Neutrophils % 77.3 H Lymphocytes % (Manual) Monocytes % (Manual) Nucleated RBC % Seg Neutrophils # Seg Neutrophils # Man Monocytes # (Manual) PT INR Activated Clotting Time POC ABG pH POC ABG pCO2 POC ABG pO2 Sodium Potassium Chloride Carbon Dioxide BUN Creatinine 0.3 L Glucose 155 H POC Glucose 135 H Calcium 7.8 L Magnesium Direct Bilirubin AST ALT Alkaline Phosphatase Total Creatine Kinase CK-MB (CK-2) CK-MB (CK-2) Rel Index Troponin T C-Reactive Protein Total Protein Albumin Triglycerides Ur Specific [facility] Urine WBC (Auto) Miscellaneous Test 04/20/17 04/20/17 04/21/17 12:49 18:21 00:05 WBC RBC Hgb Hct MCV MCH RDW Plt Count Lymph % (Auto) [place] % (Auto) Eos % (Auto) Baso % (Auto) Lymph # Baso # Seg Neutrophils % Lymphocytes % (Manual) Monocytes % (Manual) Nucleated RBC % Seg Neutrophils # Seg Neutrophils # Man Monocytes # (Manual) PT INR Activated Clotting Time POC ABG pH POC ABG pCO2 POC ABG pO2 Sodium Potassium Chloride Carbon Dioxide BUN Creatinine Glucose POC Glucose 155 H 165 H 141 H Calcium Magnesium Direct Bilirubin AST ALT Alkaline Phosphatase Total Creatine Kinase CK-MB (CK-2) CK-MB (CK-2) Rel Index Troponin T C-Reactive Protein Total Protein Albumin Triglycerides Ur Specific [facility] Urine WBC (Auto) Miscellaneous Test 04/21/17 04/21/17 04/21/17 06:00 12:11 17:04 WBC RBC Hgb Hct MCV MCH RDW Plt Count Lymph % (Auto) [place] % (Auto) Eos % (Auto) Baso % (Auto) Lymph # Baso # Seg Neutrophils % Lymphocytes % (Manual) Monocytes % (Manual) Nucleated RBC % Seg Neutrophils # Seg Neutrophils # Man Monocytes # (Manual) PT INR Activated Clotting Time POC ABG pH POC ABG pCO2 POC ABG pO2 Sodium Potassium Chloride Carbon Dioxide BUN Creatinine Glucose POC Glucose 152 H 165 H 156 H Calcium Magnesium Direct Bilirubin AST ALT Alkaline Phosphatase Total Creatine Kinase CK-MB (CK-2) CK-MB (CK-2) Rel Index Troponin T C-Reactive Protein Total Protein Albumin Triglycerides Ur Specific [facility] Urine WBC (Auto) Miscellaneous Test 04/21/17 04/21/17 04/22/17 22:00 23:59 05:49 WBC RBC Hgb Hct MCV MCH RDW Plt Count Lymph % (Auto) [place] % (Auto) Eos % (Auto) Baso % (Auto) Lymph # Baso # Seg Neutrophils % Lymphocytes % (Manual) Monocytes % (Manual) Nucleated RBC % Seg Neutrophils # Seg Neutrophils # Man Monocytes # (Manual) PT INR Activated Clotting Time POC ABG pH POC ABG pCO2 POC ABG pO2 Sodium Potassium Chloride Carbon Dioxide BUN Creatinine Glucose POC Glucose 166 H 173 H Calcium Magnesium Direct Bilirubin AST ALT Alkaline Phosphatase Total Creatine Kinase CK-MB (CK-2) CK-MB (CK-2) Rel Index Troponin T C-Reactive Protein Total Protein Albumin Triglycerides Ur Specific [facility] Urine WBC (Auto) 10.0 H Miscellaneous Test 04/22/17 04/22/17 04/23/17 11:11 18:04 00:37 WBC RBC Hgb Hct MCV MCH RDW Plt Count Lymph % (Auto) [place] % (Auto) Eos % (Auto) Baso % (Auto) Lymph # Baso # Seg Neutrophils % Lymphocytes % (Manual) Monocytes % (Manual) Nucleated RBC % Seg Neutrophils # Seg Neutrophils # Man Monocytes # (Manual) PT INR Activated Clotting Time POC ABG pH POC ABG pCO2 POC ABG pO2 Sodium Potassium Chloride Carbon Dioxide BUN Creatinine Glucose POC Glucose 172 H 140 H 135 H Calcium Magnesium Direct Bilirubin AST ALT Alkaline Phosphatase Total Creatine Kinase CK-MB (CK-2) CK-MB (CK-2) Rel Index Troponin T C-Reactive Protein Total Protein Albumin Triglycerides Ur Specific [facility] Urine WBC (Auto) Miscellaneous Test 04/23/17 04/23/17 04/23/17 05:33 06:20 11:10 WBC RBC 3.19 L Hgb 9.9 L Hct 30.0 L MCV MCH RDW Plt Count Lymph % (Auto) 8.0 L [place] % (Auto) Eos % (Auto) Baso % (Auto) Lymph # 0.8 L Baso # Seg Neutrophils % 84.5 H Lymphocytes % (Manual) Monocytes % (Manual) Nucleated RBC % Seg Neutrophils # 8.2 H Seg Neutrophils # Man Monocytes # (Manual) PT INR Activated Clotting Time POC ABG pH POC ABG pCO2 POC ABG pO2 Sodium Potassium Chloride Carbon Dioxide BUN Creatinine Glucose POC Glucose 134 H 134 H Calcium Magnesium Direct Bilirubin AST ALT Alkaline Phosphatase Total Creatine Kinase CK-MB (CK-2) CK-MB (CK-2) Rel Index Troponin T C-Reactive Protein Total Protein Albumin Triglycerides Ur Specific [facility] Urine WBC (Auto) Miscellaneous Test 04/23/17 04/24/17 04/24/17 17:26 00:53 06:46 WBC RBC Hgb Hct MCV MCH RDW Plt Count Lymph % (Auto) [place] % (Auto) Eos % (Auto) Baso % (Auto) Lymph # Baso # Seg Neutrophils % Lymphocytes % (Manual) Monocytes % (Manual) Nucleated RBC % Seg Neutrophils # Seg Neutrophils # Man Monocytes # (Manual) PT INR Activated Clotting Time POC ABG pH POC ABG pCO2 POC ABG pO2 Sodium Potassium Chloride Carbon Dioxide BUN Creatinine Glucose POC Glucose 164 H 146 H 125 H Calcium Magnesium Direct Bilirubin AST ALT Alkaline Phosphatase Total Creatine Kinase CK-MB (CK-2) CK-MB (CK-2) Rel Index Troponin T C-Reactive Protein Total Protein Albumin Triglycerides Ur Specific [facility] Urine WBC (Auto) Miscellaneous Test 04/24/17 04/24/17 04/24/17 11:55 17:50 23:36 WBC RBC Hgb Hct MCV MCH RDW Plt Count Lymph % (Auto) [place] % (Auto) Eos % (Auto) Baso % (Auto) Lymph # Baso # Seg Neutrophils % Lymphocytes % (Manual) Monocytes % (Manual) Nucleated RBC % Seg Neutrophils # Seg Neutrophils # Man Monocytes # (Manual) PT INR Activated Clotting Time POC ABG pH POC ABG pCO2 POC ABG pO2 Sodium Potassium Chloride Carbon Dioxide BUN Creatinine Glucose POC Glucose 156 H 146 H 131 H Calcium Magnesium Direct Bilirubin AST ALT Alkaline Phosphatase Total Creatine Kinase CK-MB (CK-2) CK-MB (CK-2) Rel Index Troponin T C-Reactive Protein Total Protein Albumin Triglycerides Ur Specific [facility] Urine WBC (Auto) Miscellaneous Test 04/25/17 04/25/17 04/25/17 04:51 05:16 07:07 WBC RBC Hgb Hct MCV MCH RDW Plt Count Lymph % (Auto) [place] % (Auto) Eos % (Auto) Baso % (Auto) Lymph # Baso # Seg Neutrophils % Lymphocytes % (Manual) Monocytes % (Manual) Nucleated RBC % Seg Neutrophils # Seg Neutrophils # Man Monocytes # (Manual) PT INR Activated Clotting Time POC ABG pH POC ABG pCO2 POC ABG pO2 Sodium Potassium Chloride Carbon Dioxide BUN Creatinine Glucose POC Glucose 139 H Calcium Magnesium Direct Bilirubin AST 105 H ALT 204 H Alkaline Phosphatase 189 H Total Creatine Kinase CK-MB (CK-2) CK-MB (CK-2) Rel Index Troponin T C-Reactive Protein Total Protein Albumin 2.4 L Triglycerides Ur Specific [facility] Urine WBC (Auto) Miscellaneous Test Flexitest 1 H 04/25/17 04/25/17 04/25/17 12:29 17:23 23:32 WBC RBC Hgb Hct MCV MCH RDW Plt Count Lymph % (Auto) [place] % (Auto) Eos % (Auto) Baso % (Auto) Lymph # Baso # Seg Neutrophils % Lymphocytes % (Manual) Monocytes % (Manual) Nucleated RBC % Seg Neutrophils # Seg Neutrophils # Man Monocytes # (Manual) PT INR Activated Clotting Time POC ABG pH POC ABG pCO2 POC ABG pO2 Sodium Potassium Chloride Carbon Dioxide BUN Creatinine Glucose POC Glucose 132 H 133 H 128 H Calcium Magnesium Direct Bilirubin AST ALT Alkaline Phosphatase Total Creatine Kinase CK-MB (CK-2) CK-MB (CK-2) Rel Index Troponin T C-Reactive Protein Total Protein Albumin Triglycerides Ur Specific [facility] Urine WBC (Auto) Miscellaneous Test 04/26/17 04/26/17 04/26/17 05:24 11:28 17:09 WBC RBC Hgb Hct MCV MCH RDW Plt Count Lymph % (Auto) [place] % (Auto) Eos % (Auto) Baso % (Auto) Lymph # Baso # Seg Neutrophils % Lymphocytes % (Manual) Monocytes % (Manual) Nucleated RBC % Seg Neutrophils # Seg Neutrophils # Man Monocytes # (Manual) PT INR Activated Clotting Time POC ABG pH POC ABG pCO2 POC ABG pO2 Sodium Potassium Chloride Carbon Dioxide BUN Creatinine Glucose POC Glucose 132 H 146 H 141 H Calcium Magnesium Direct Bilirubin AST ALT Alkaline Phosphatase Total Creatine Kinase CK-MB (CK-2) CK-MB (CK-2) Rel Index Troponin T C-Reactive Protein Total Protein Albumin Triglycerides Ur Specific [facility] Urine WBC (Auto) Miscellaneous Test 04/26/17 04/27/17 04/27/17 23:52 05:40 05:40 WBC RBC 3.22 L Hgb 10.0 L Hct 29.9 L MCV MCH RDW Plt Count Lymph % (Auto) [place] % (Auto) Eos % (Auto) Baso % (Auto) Lymph # Baso # Seg Neutrophils % 76.6 H Lymphocytes % (Manual) Monocytes % (Manual) Nucleated RBC % Seg Neutrophils # Seg Neutrophils # Man Monocytes # (Manual) PT INR Activated Clotting Time POC ABG pH POC ABG pCO2 POC ABG pO2 Sodium Potassium Chloride Carbon Dioxide BUN Creatinine Glucose POC Glucose 140 H Calcium Magnesium Direct Bilirubin AST 66 H ALT 137 H Alkaline Phosphatase 169 H Total Creatine Kinase CK-MB (CK-2) CK-MB (CK-2) Rel Index Troponin T C-Reactive Protein Total Protein 6.2 L Albumin 2.6 L Triglycerides Ur Specific [facility] Urine WBC (Auto) Miscellaneous Test 04/27/17 04/27/17 04/27/17 05:40 06:10 11:13 WBC RBC Hgb Hct MCV MCH RDW Plt Count Lymph % (Auto) [place] % (Auto) Eos % (Auto) Baso % (Auto) Lymph # Baso # Seg Neutrophils % Lymphocytes % (Manual) Monocytes % (Manual) Nucleated RBC % Seg Neutrophils # Seg Neutrophils # Man Monocytes # (Manual) PT INR Activated Clotting Time POC ABG pH POC ABG pCO2 POC ABG pO2 Sodium Potassium Chloride Carbon Dioxide BUN Creatinine 0.2 L Glucose 139 H POC Glucose 130 H 151 H Calcium Magnesium Direct Bilirubin AST ALT Alkaline Phosphatase Total Creatine Kinase CK-MB (CK-2) CK-MB (CK-2) Rel Index Troponin T C-Reactive Protein Total Protein Albumin Triglycerides Ur Specific [facility] Urine WBC (Auto) Miscellaneous Test 04/27/17 04/27/17 04/28/17 17:37 23:19 05:24 WBC RBC Hgb Hct MCV MCH RDW Plt Count Lymph % (Auto) [place] % (Auto) Eos % (Auto) Baso % (Auto) Lymph # Baso # Seg Neutrophils % Lymphocytes % (Manual) Monocytes % (Manual) Nucleated RBC % Seg Neutrophils # Seg Neutrophils # Man Monocytes # (Manual) PT INR Activated Clotting Time POC ABG pH POC ABG pCO2 POC ABG pO2 Sodium Potassium Chloride Carbon Dioxide BUN Creatinine Glucose POC Glucose 159 H 130 H 132 H Calcium Magnesium Direct Bilirubin AST ALT Alkaline Phosphatase Total Creatine Kinase CK-MB (CK-2) CK-MB (CK-2) Rel Index Troponin T C-Reactive Protein Total Protein Albumin Triglycerides Ur Specific [facility] Urine WBC (Auto) Miscellaneous Test 04/28/17 04/28/17 04/28/17 11:15 17:38 23:23 WBC RBC Hgb Hct MCV MCH RDW Plt Count Lymph % (Auto) [place] % (Auto) Eos % (Auto) Baso % (Auto) Lymph # Baso # Seg Neutrophils % Lymphocytes % (Manual) Monocytes % (Manual) Nucleated RBC % Seg Neutrophils # Seg Neutrophils # Man Monocytes # (Manual) PT INR Activated Clotting Time POC ABG pH POC ABG pCO2 POC ABG pO2 Sodium Potassium Chloride Carbon Dioxide BUN Creatinine Glucose POC Glucose 162 H 133 H 138 H Calcium Magnesium Direct Bilirubin AST ALT Alkaline Phosphatase Total Creatine Kinase CK-MB (CK-2) CK-MB (CK-2) Rel Index Troponin T C-Reactive Protein Total Protein Albumin Triglycerides Ur Specific [facility] Urine WBC (Auto) Miscellaneous Test 04/29/17 04/29/17 04/29/17 05:15 12:55 17:21 WBC RBC Hgb Hct MCV MCH RDW Plt Count Lymph % (Auto) [place] % (Auto) Eos % (Auto) Baso % (Auto) Lymph # Baso # Seg Neutrophils % Lymphocytes % (Manual) Monocytes % (Manual) Nucleated RBC % Seg Neutrophils # Seg Neutrophils # Man Monocytes # (Manual) PT INR Activated Clotting Time POC ABG pH POC ABG pCO2 POC ABG pO2 Sodium Potassium Chloride Carbon Dioxide BUN Creatinine Glucose POC Glucose 135 H 127 H 138 H Calcium Magnesium Direct Bilirubin AST ALT Alkaline Phosphatase Total Creatine Kinase CK-MB (CK-2) CK-MB (CK-2) Rel Index Troponin T C-Reactive Protein Total Protein Albumin Triglycerides Ur Specific [facility] Urine WBC (Auto) Miscellaneous Test 04/29/17 04/30/17 04/30/17 23:52 04:55 12:22 WBC RBC Hgb Hct MCV MCH RDW Plt Count Lymph % (Auto) [place] % (Auto) Eos % (Auto) Baso % (Auto) Lymph # Baso # Seg Neutrophils % Lymphocytes % (Manual) Monocytes % (Manual) Nucleated RBC % Seg Neutrophils # Seg Neutrophils # Man Monocytes # (Manual) PT INR Activated Clotting Time POC ABG pH POC ABG pCO2 POC ABG pO2 Sodium Potassium Chloride Carbon Dioxide BUN Creatinine Glucose POC Glucose 142 H 146 H 132 H Calcium Magnesium Direct Bilirubin AST ALT Alkaline Phosphatase Total Creatine Kinase CK-MB (CK-2) CK-MB (CK-2) Rel Index Troponin T C-Reactive Protein Total Protein Albumin Triglycerides Ur Specific [facility] Urine WBC (Auto) Miscellaneous Test 04/30/17 04/30/17 04/30/17 14:25 17:47 18:20 WBC RBC Hgb Hct MCV MCH RDW Plt Count Lymph % (Auto) [place] % (Auto) Eos % (Auto) Baso % (Auto) Lymph # Baso # Seg Neutrophils % Lymphocytes % (Manual) Monocytes % (Manual) Nucleated RBC % Seg Neutrophils # Seg Neutrophils # Man Monocytes # (Manual) PT INR Activated Clotting Time POC ABG pH 7.551 H POC ABG pCO2 32.7 L POC ABG pO2 Sodium Potassium Chloride Carbon Dioxide BUN 21 H Creatinine 0.2 L Glucose 141 H POC Glucose 139 H Calcium Magnesium Direct Bilirubin AST ALT Alkaline Phosphatase Total Creatine Kinase CK-MB (CK-2) CK-MB (CK-2) Rel Index Troponin T C-Reactive Protein Total Protein Albumin Triglycerides Ur Specific [facility] Urine WBC (Auto) Miscellaneous Test 05/01/17 05/01/17 05/01/17 01:26 05:30 05:30 WBC RBC 3.49 L Hgb 10.3 L Hct 31.9 L MCV MCH RDW Plt Count Lymph % (Auto) [place] % (Auto) 8.1 H Eos % (Auto) Baso % (Auto) Lymph # Baso # Seg Neutrophils % 71.3 H Lymphocytes % (Manual) Monocytes % (Manual) Nucleated RBC % Seg Neutrophils # Seg Neutrophils # Man Monocytes # (Manual) PT INR Activated Clotting Time POC ABG pH POC ABG pCO2 POC ABG pO2 Sodium 136 L Potassium Chloride 97.6 L Carbon Dioxide BUN Creatinine 0.2 L Glucose 123 H POC Glucose 116 H Calcium Magnesium Direct Bilirubin AST 71 H ALT 125 H Alkaline Phosphatase 158 H Total Creatine Kinase CK-MB (CK-2) CK-MB (CK-2) Rel Index Troponin T C-Reactive Protein Total Protein Albumin 2.6 L Triglycerides Ur Specific [facility] Urine WBC (Auto) Miscellaneous Test 05/01/17 05/01/17 05/02/17 11:59 17:23 00:08 WBC RBC Hgb Hct MCV MCH RDW Plt Count Lymph % (Auto) [place] % (Auto) Eos % (Auto) Baso % (Auto) Lymph # Baso # Seg Neutrophils % Lymphocytes % (Manual) Monocytes % (Manual) Nucleated RBC % Seg Neutrophils # Seg Neutrophils # Man Monocytes # (Manual) PT INR Activated Clotting Time POC ABG pH POC ABG pCO2 POC ABG pO2 Sodium Potassium Chloride Carbon Dioxide BUN Creatinine Glucose POC Glucose 118 H 144 H 122 H Calcium Magnesium Direct Bilirubin AST ALT Alkaline Phosphatase Total Creatine Kinase CK-MB (CK-2) CK-MB (CK-2) Rel Index Troponin T C-Reactive Protein Total Protein Albumin Triglycerides Ur Specific [facility] Urine WBC (Auto) Miscellaneous Test 05/02/17 05/02/17 05/02/17 05:50 11:21 17:48 WBC RBC Hgb Hct MCV MCH RDW Plt Count Lymph % (Auto) [place] % (Auto) Eos % (Auto) Baso % (Auto) Lymph # Baso # Seg Neutrophils % Lymphocytes % (Manual) Monocytes % (Manual) Nucleated RBC % Seg Neutrophils # Seg Neutrophils # Man Monocytes # (Manual) PT INR Activated Clotting Time POC ABG pH POC ABG pCO2 POC ABG pO2 Sodium Potassium Chloride Carbon Dioxide BUN Creatinine Glucose POC Glucose 120 H 121 H 140 H Calcium Magnesium Direct Bilirubin AST ALT Alkaline Phosphatase Total Creatine Kinase CK-MB (CK-2) CK-MB (CK-2) Rel Index Troponin T C-Reactive Protein Total Protein Albumin Triglycerides Ur Specific [facility] Urine WBC (Auto) Miscellaneous Test 05/02/17 05/03/17 05/03/17 23:12 05:35 11:52 WBC RBC Hgb Hct MCV MCH RDW Plt Count Lymph % (Auto) [place] % (Auto) Eos % (Auto) Baso % (Auto) Lymph # Baso # Seg Neutrophils % Lymphocytes % (Manual) Monocytes % (Manual) Nucleated RBC % Seg Neutrophils # Seg Neutrophils # Man Monocytes # (Manual) PT INR Activated Clotting Time POC ABG pH POC ABG pCO2 POC ABG pO2 Sodium Potassium Chloride Carbon Dioxide BUN Creatinine Glucose POC Glucose 128 H 113 H 126 H Calcium Magnesium Direct Bilirubin AST ALT Alkaline Phosphatase Total Creatine Kinase CK-MB (CK-2) CK-MB (CK-2) Rel Index Troponin T C-Reactive Protein Total Protein Albumin Triglycerides Ur Specific [facility] Urine WBC (Auto) Miscellaneous Test 05/03/17 05/03/17 05/04/17 17:29 23:26 04:55 WBC RBC Hgb Hct MCV MCH RDW Plt Count Lymph % (Auto) [place] % (Auto) Eos % (Auto) Baso % (Auto) Lymph # Baso # Seg Neutrophils % Lymphocytes % (Manual) Monocytes % (Manual) Nucleated RBC % Seg Neutrophils # Seg Neutrophils # Man Monocytes # (Manual) PT INR Activated Clotting Time POC ABG pH POC ABG pCO2 POC ABG pO2 Sodium Potassium Chloride Carbon Dioxide BUN Creatinine Glucose POC Glucose 141 H 129 H 126 H Calcium Magnesium Direct Bilirubin AST ALT Alkaline Phosphatase Total Creatine Kinase CK-MB (CK-2) CK-MB (CK-2) Rel Index Troponin T C-Reactive Protein Total Protein Albumin Triglycerides Ur Specific [facility] Urine WBC (Auto) Miscellaneous Test 05/04/17 05/04/17 05/05/17 12:09 17:46 00:06 WBC RBC Hgb Hct MCV MCH RDW Plt Count Lymph % (Auto) [place] % (Auto) Eos % (Auto) Baso % (Auto) Lymph # Baso # Seg Neutrophils % Lymphocytes % (Manual) Monocytes % (Manual) Nucleated RBC % Seg Neutrophils # Seg Neutrophils # Man Monocytes # (Manual) PT INR Activated Clotting Time POC ABG pH POC ABG pCO2 POC ABG pO2 Sodium Potassium Chloride Carbon Dioxide BUN Creatinine Glucose POC Glucose 125 H 125 H 110 H Calcium Magnesium Direct Bilirubin AST ALT Alkaline Phosphatase Total Creatine Kinase CK-MB (CK-2) CK-MB (CK-2) Rel Index Troponin T C-Reactive Protein Total Protein Albumin Triglycerides Ur Specific [facility] Urine WBC (Auto) Miscellaneous Test 05/05/17 05/05/17 05/05/17 05:48 11:41 16:19 WBC RBC Hgb Hct MCV MCH RDW Plt Count Lymph % (Auto) [place] % (Auto) Eos % (Auto) Baso % (Auto) Lymph # Baso # Seg Neutrophils % Lymphocytes % (Manual) Monocytes % (Manual) Nucleated RBC % Seg Neutrophils # Seg Neutrophils # Man Monocytes # (Manual) PT INR Activated Clotting Time POC ABG pH POC ABG pCO2 POC ABG pO2 Sodium Potassium Chloride Carbon Dioxide BUN Creatinine Glucose POC Glucose 124 H 122 H 120 H Calcium Magnesium Direct Bilirubin AST ALT Alkaline Phosphatase Total Creatine Kinase CK-MB (CK-2) CK-MB (CK-2) Rel Index Troponin T C-Reactive Protein Total Protein Albumin Triglycerides Ur Specific [facility] Urine WBC (Auto) Miscellaneous Test 05/06/17 05/06/17 05/06/17 00:16 05:47 11:42 WBC RBC Hgb Hct MCV MCH RDW Plt Count Lymph % (Auto) [place] % (Auto) Eos % (Auto) Baso % (Auto) Lymph # Baso # Seg Neutrophils % Lymphocytes % (Manual) Monocytes % (Manual) Nucleated RBC % Seg Neutrophils # Seg Neutrophils # Man Monocytes # (Manual) PT INR Activated Clotting Time POC ABG pH POC ABG pCO2 POC ABG pO2 Sodium Potassium Chloride Carbon Dioxide BUN Creatinine Glucose POC Glucose 110 H 142 H 120 H Calcium Magnesium Direct Bilirubin AST ALT Alkaline Phosphatase Total Creatine Kinase CK-MB (CK-2) CK-MB (CK-2) Rel Index Troponin T C-Reactive Protein Total Protein Albumin Triglycerides Ur Specific [facility] Urine WBC (Auto) Miscellaneous Test 05/06/17 05/07/17 05/07/17 17:46 00:07 05:28 WBC RBC Hgb Hct MCV MCH RDW Plt Count Lymph % (Auto) [place] % (Auto) Eos % (Auto) Baso % (Auto) Lymph # Baso # Seg Neutrophils % Lymphocytes % (Manual) Monocytes % (Manual) Nucleated RBC % Seg Neutrophils # Seg Neutrophils # Man Monocytes # (Manual) PT INR Activated Clotting Time POC ABG pH POC ABG pCO2 POC ABG pO2 Sodium Potassium Chloride Carbon Dioxide BUN Creatinine Glucose POC Glucose 127 H 145 H 124 H Calcium Magnesium Direct Bilirubin AST ALT Alkaline Phosphatase Total Creatine Kinase CK-MB (CK-2) CK-MB (CK-2) Rel Index Troponin T C-Reactive Protein Total Protein Albumin Triglycerides Ur Specific [facility] Urine WBC (Auto) Miscellaneous Test 05/07/17 05/07/17 05/08/17 11:17 17:14 00:03 WBC RBC Hgb Hct MCV MCH RDW Plt Count Lymph % (Auto) [place] % (Auto) Eos % (Auto) Baso % (Auto) Lymph # Baso # Seg Neutrophils % Lymphocytes % (Manual) Monocytes % (Manual) Nucleated RBC % Seg Neutrophils # Seg Neutrophils # Man Monocytes # (Manual) PT INR Activated Clotting Time POC ABG pH POC ABG pCO2 POC ABG pO2 Sodium Potassium Chloride Carbon Dioxide BUN Creatinine Glucose POC Glucose 144 H 125 H 122 H Calcium Magnesium Direct Bilirubin AST ALT Alkaline Phosphatase Total Creatine Kinase CK-MB (CK-2) CK-MB (CK-2) Rel Index Troponin T C-Reactive Protein Total Protein Albumin Triglycerides Ur Specific [facility] Urine WBC (Auto) Miscellaneous Test 05/08/17 05/08/17 05/08/17 05:43 12:07 18:02 WBC RBC Hgb Hct MCV MCH RDW Plt Count Lymph % (Auto) [place] % (Auto) Eos % (Auto) Baso % (Auto) Lymph # Baso # Seg Neutrophils % Lymphocytes % (Manual) Monocytes % (Manual) Nucleated RBC % Seg Neutrophils # Seg Neutrophils # Man Monocytes # (Manual) PT INR Activated Clotting Time POC ABG pH POC ABG pCO2 POC ABG pO2 Sodium Potassium Chloride Carbon Dioxide BUN Creatinine Glucose POC Glucose 117 H 114 H 129 H Calcium Magnesium Direct Bilirubin AST ALT Alkaline Phosphatase Total Creatine Kinase CK-MB (CK-2) CK-MB (CK-2) Rel Index Troponin T C-Reactive Protein Total Protein Albumin Triglycerides Ur Specific [facility] Urine WBC (Auto) Miscellaneous Test 05/08/17 05/09/17 05/09/17 23:53 04:19 05:14 WBC RBC Hgb Hct MCV MCH RDW Plt Count Lymph % (Auto) [place] % (Auto) Eos % (Auto) Baso % (Auto) Lymph # Baso # Seg Neutrophils % Lymphocytes % (Manual) Monocytes % (Manual) Nucleated RBC % Seg Neutrophils # Seg Neutrophils # Man Monocytes # (Manual) PT INR Activated Clotting Time POC ABG pH 7.524 H POC ABG pCO2 34.7 L POC ABG pO2 107 H Sodium Potassium Chloride Carbon Dioxide BUN Creatinine Glucose POC Glucose 125 H 118 H Calcium Magnesium Direct Bilirubin AST ALT Alkaline Phosphatase Total Creatine Kinase CK-MB (CK-2) CK-MB (CK-2) Rel Index Troponin T C-Reactive Protein Total Protein Albumin Triglycerides Ur Specific [facility] Urine WBC (Auto) Miscellaneous Test 05/10/17 05/11/17 05/11/17 23:54 05:48 23:50 WBC RBC Hgb Hct MCV MCH RDW Plt Count Lymph % (Auto) [place] % (Auto) Eos % (Auto) Baso % (Auto) Lymph # Baso # Seg Neutrophils % Lymphocytes % (Manual) Monocytes % (Manual) Nucleated RBC % Seg Neutrophils # Seg Neutrophils # Man Monocytes # (Manual) PT INR Activated Clotting Time POC ABG pH POC ABG pCO2 POC ABG pO2 Sodium Potassium Chloride Carbon Dioxide BUN Creatinine Glucose POC Glucose 126 H 137 H 130 H Calcium Magnesium Direct Bilirubin AST ALT Alkaline Phosphatase Total Creatine Kinase CK-MB (CK-2) CK-MB (CK-2) Rel Index Troponin T C-Reactive Protein Total Protein Albumin Triglycerides Ur Specific [facility] Urine WBC (Auto) Miscellaneous Test 05/12/17 05/12/17 05/12/17 05:48 11:33 18:00 WBC RBC Hgb Hct MCV MCH RDW Plt Count Lymph % (Auto) [place] % (Auto) Eos % (Auto) Baso % (Auto) Lymph # Baso # Seg Neutrophils % Lymphocytes % (Manual) Monocytes % (Manual) Nucleated RBC % Seg Neutrophils # Seg Neutrophils # Man Monocytes # (Manual) PT INR Activated Clotting Time POC ABG pH POC ABG pCO2 POC ABG pO2 Sodium Potassium Chloride Carbon Dioxide BUN Creatinine Glucose POC Glucose 126 H 116 H 131 H Calcium Magnesium Direct Bilirubin AST ALT Alkaline Phosphatase Total Creatine Kinase CK-MB (CK-2) CK-MB (CK-2) Rel Index Troponin T C-Reactive Protein Total Protein Albumin Triglycerides Ur Specific [facility] Urine WBC (Auto) Miscellaneous Test 05/14/17 05/15/17 05/15/17 11:45 11:27 17:42 WBC RBC Hgb Hct MCV MCH RDW Plt Count Lymph % (Auto) [place] % (Auto) Eos % (Auto) Baso % (Auto) Lymph # Baso # Seg Neutrophils % Lymphocytes % (Manual) Monocytes % (Manual) Nucleated RBC % Seg Neutrophils # Seg Neutrophils # Man Monocytes # (Manual) PT INR Activated Clotting Time POC ABG pH POC ABG pCO2 POC ABG pO2 Sodium Potassium Chloride Carbon Dioxide BUN Creatinine Glucose POC Glucose 123 H 129 H 125 H Calcium Magnesium Direct Bilirubin AST ALT Alkaline Phosphatase Total Creatine Kinase CK-MB (CK-2) CK-MB (CK-2) Rel Index Troponin T C-Reactive Protein Total Protein Albumin Triglycerides Ur Specific [facility] Urine WBC (Auto) Miscellaneous Test 05/16/17 05/16/17 05/17/17 00:29 06:50 03:45 WBC RBC Hgb 11.7 L Hct 34.8 L MCV MCH RDW 15.5 H Plt Count Lymph % (Auto) [place] % (Auto) 7.7 H Eos % (Auto) Baso % (Auto) Lymph # Baso # Seg Neutrophils % 73.7 H Lymphocytes % (Manual) Monocytes % (Manual) Nucleated RBC % Seg Neutrophils # Seg Neutrophils # Man Monocytes # (Manual) PT INR Activated Clotting Time POC ABG pH POC ABG pCO2 POC ABG pO2 Sodium Potassium Chloride Carbon Dioxide BUN Creatinine Glucose POC Glucose 141 H 138 H Calcium Magnesium Direct Bilirubin AST ALT Alkaline Phosphatase Total Creatine Kinase CK-MB (CK-2) CK-MB (CK-2) Rel Index Troponin T C-Reactive Protein Total Protein Albumin Triglycerides Ur Specific [facility] Urine WBC (Auto) Miscellaneous Test 05/17/17 05/20/17 05/23/17 03:45 17:31 23:09 WBC RBC Hgb Hct MCV MCH RDW Plt Count Lymph % (Auto) [place] % (Auto) Eos % (Auto) Baso % (Auto) Lymph # Baso # Seg Neutrophils % Lymphocytes % (Manual) Monocytes % (Manual) Nucleated RBC % Seg Neutrophils # Seg Neutrophils # Man Monocytes # (Manual) PT INR Activated Clotting Time POC ABG pH POC ABG pCO2 POC ABG pO2 Sodium Potassium Chloride Carbon Dioxide BUN Creatinine 0.2 L Glucose 131 H POC Glucose 116 H 122 H Calcium Magnesium Direct Bilirubin AST ALT Alkaline Phosphatase Total Creatine Kinase CK-MB (CK-2) CK-MB (CK-2) Rel Index Troponin T C-Reactive Protein Total Protein Albumin Triglycerides Ur Specific [facility] Urine WBC (Auto) Miscellaneous Test 05/24/17 05/26/17 05:37 05:23 WBC RBC Hgb Hct MCV MCH RDW Plt Count Lymph % (Auto) [place] % (Auto) Eos % (Auto) Baso % (Auto) Lymph # Baso # Seg Neutrophils % Lymphocytes % (Manual) Monocytes % (Manual) Nucleated RBC % Seg Neutrophils # Seg Neutrophils # Man Monocytes # (Manual) PT INR Activated Clotting Time POC ABG pH POC ABG pCO2 POC ABG pO2 Sodium Potassium Chloride Carbon Dioxide BUN Creatinine Glucose POC Glucose 139 H 108 H Calcium Magnesium Direct Bilirubin AST ALT Alkaline Phosphatase Total Creatine Kinase CK-MB (CK-2) CK-MB (CK-2) Rel Index Troponin T C-Reactive Protein Total Protein Albumin Triglycerides Ur Specific [facility] Urine WBC (Auto) Miscellaneous Test
--- NOTE | 2017-05-27 09:55 | Progress Note ---
Assessment and Plan Assessment and plan: 46 y/o male with out of hospital Vfib arrest, s/p LHC with stent placement, likely with anoxic encephalopathy, status post trach and peg. V. fib arrest status post CPR anoxic encephalopathy respiratory failure vent dependent tracheostomy and PEG placement MRSA pneumonia with status. poor prognosis, full CODE STATUS -- acute hypoxic hypercapnic respiratory failure; status post trach, vent dependent, PSV Trial --Hematuria; unknown etiology, resolved --Acute Cystitis treated with abx --s/p cardiac arrest /anoxic encephalopathy/vegetative state --Acute anterior STEMI; status post PCI, --s/p MRSA pneumonia/aspiration pneumonia, s/p full treatment, contact isolation --Hypertension; monitor blood pressures and adjust medications as needed -- Aspiration pneumonia; sepsis; received full course of antibiotics --Cardiogenic shock; off pressors, --s/p trach and PEG, continue PEG feeds --Severe Protein calorie malnutrition: Peg feeds and nutrition supplements --DVT prophylaxis; Lovenox Continue current management --Full CODE STATUS Poor prognosis family aware, Multiple family meetings in the past. Still awaiting family decision Family has unrealistic expectations, requests to continue full CODE STATUS Dismal prognosis and bad outcome is expected as explained by neurology and Dr. Ham (see previous notes); The high probability of a clinically significant, sudden or life threatening deterioration of the [NEUROLOGY, pulmonary] system(s) required my full and direct attention, intervention and personal management. The aggregate critical care time was [35] minutes. This time is in addition to time spent performing reported procedures but includes the following: [X] Data Review and interpretation [X] Patient assessment and monitoring of vital signs [X] Documentation [X] Medication orders and management History Interval history: Patient seen and examined, remains on full ventilatory support and unresponsive. No clinical change. Hospitalist Physical - Physical exam Narrative exam: General appearance: Present: no acute distress, well-nourished, other ( tracheostomy on vent) - EENT Eyes: Present: PERRL (spontaneous opening of eyes) - Neck Neck: Present: supple, other (tracheostomy) - Respiratory Respiratory effort: normal Respiratory: bilateral: diminished, rhonchi - Cardiovascular Rhythm: regular Heart Sounds: Present: S1 & S2 - Extremities Extremities: no ischemia Extremity abnormal: edema (trace edema) - Abdominal General gastrointestinal: soft, non-tender, non-distended, normal bowel sounds, other (PEG in place and functional) - Integumentary Integumentary: Present: clear, warm - Psychiatric Psychiatric: other (noncommunicative) - Neurologic Neurologic: other (unresponsive) - Constitutional Vitals: Temp Pulse Resp BP Pulse Ox 98.1 F 84 16 108/59 99 05/27/17 08:00 05/27/17 08:46 05/27/17 08:46 05/27/17 08:46 05/27/17 08:46 General appearance: Present: no acute distress, well-nourished, other ( tracheostomy on vent) Results - Labs CBC & Chem 7: 05/17/17 03:45 05/17/17 03:45 Labs: Laboratory Last Values WBC 9.4 K/mm3 (4.5-11.0) 05/17/17 03:45 RBC 3.85 M/mm3 (3.65-5.03) 05/17/17 03:45 Hgb 11.7 gm/dl (11.8-15.2) L 05/17/17 03:45 Hct 34.8 % (35.5-45.6) L 05/17/17 03:45 MCV 90 fl (84-94) 05/17/17 03:45 MCH 31 pg (28-32) 05/17/17 03:45 MCHC 34 % (32-34) 05/17/17 03:45 RDW 15.5 % (13.2-15.2) H 05/17/17 03:45 Plt Count 289 K/mm3 (140-440) 05/17/17 03:45 Lymph % (Auto) 15.6 % (13.4-35.0) 05/17/17 03:45 [place] % (Auto) 7.7 % (0.0-7.3) H 05/17/17 03:45 Eos % (Auto) 2.7 % (0.0-4.3) 05/17/17 03:45 Baso % (Auto) 0.3 % (0.0-1.8) 05/17/17 03:45 Lymph # 1.5 K/mm3 (1.2-5.4) 05/17/17 03:45 [place] # 0.7 K/mm3 (0.0-0.8) 05/17/17 03:45 Eos # 0.3 K/mm3 (0.0-0.4) 05/17/17 03:45 Baso # 0.0 K/mm3 (0.0-0.1) 05/17/17 03:45 Add Manual Diff Complete 03/30/17 03:50 Total Counted 100 03/30/17 03:50 Seg Neutrophils % 73.7 % (40.0-70.0) H 05/17/17 03:45 Seg Neuts % (Manual) 65.0 % (40.0-70.0) 03/30/17 03:50 Band Neutrophils % 17.0 % 03/30/17 03:50 Lymphocytes % (Manual) 7.0 % (13.4-35.0) L 03/30/17 03:50 Reactive Lymphs % (Man) 0 % 03/30/17 03:50 Monocytes % (Manual) 7.0 % (0.0-7.3) 03/30/17 03:50 Eosinophils % (Manual) 0 % (0.0-4.3) 03/30/17 03:50 Basophils % (Manual) 0 % (0.0-1.8) 03/30/17 03:50 Metamyelocytes % 4.0 % 03/30/17 03:50 Myelocytes % 0 % 03/30/17 03:50 Promyelocytes % 0 % 03/30/17 03:50 Blast Cells % 0 % 03/30/17 03:50 Nucleated RBC % Not Reportable 03/30/17 03:50 Seg Neutrophils # 6.9 K/mm3 (1.8-7.7) 05/17/17 03:45 Seg Neutrophils # Man 12.7 K/mm3 (1.8-7.7) H 03/30/17 03:50 Band Neutrophils # 3.3 K/mm3 03/30/17 03:50 Lymphocytes # (Manual) 1.4 K/mm3 (1.2-5.4) 03/30/17 03:50 Abs React Lymphs (Man) 0.0 K/mm3 03/30/17 03:50 Monocytes # (Manual) 1.4 K/mm3 (0.0-0.8) H 03/30/17 03:50 Eosinophils # (Manual) 0.0 K/mm3 (0.0-0.4) 03/30/17 03:50 Basophils # (Manual) 0.0 K/mm3 (0.0-0.1) 03/30/17 03:50 Metamyelocytes # 0.8 K/mm3 03/30/17 03:50 Myelocytes # 0.0 K/mm3 03/30/17 03:50 Promyelocytes # 0.0 K/mm3 03/30/17 03:50 Blast Cells # 0.0 K/mm3 03/30/17 03:50 WBC Morphology Not Reportable 03/30/17 03:50 Hypersegmented Neuts Not Reportable 03/30/17 03:50 Hyposegmented Neuts Not Reportable 03/30/17 03:50 Hypogranular Neuts Not Reportable 03/30/17 03:50 Smudge Cells Not Reportable 03/30/17 03:50 Toxic Granulation Not Reportable 03/30/17 03:50 Toxic Vacuolation Not Reportable 03/30/17 03:50 Dohle Bodies Not Reportable 03/30/17 03:50 Pel[place]-Huet Anomaly Not Reportable 03/30/17 03:50 Sherry Rods Not Reportable 03/30/17 03:50 Platelet Estimate Appears normal 03/30/17 03:50 Clumped Platelets Not Reportable 03/30/17 03:50 Plt Clumps, EDTA Not Reportable 03/30/17 03:50 Large Platelets Not Reportable 03/30/17 03:50 Giant Platelets Not Reportable 03/30/17 03:50 Platelet Satelliting Not Reportable 03/30/17 03:50 Plt Morphology Comment Not Reportable 03/30/17 03:50 RBC Morphology Not Reportable 03/30/17 03:50 Dimorphic RBCs Not Reportable 03/30/17 03:50 Polychromasia Not Reportable 03/30/17 03:50 Hypochromasia Not Reportable 03/30/17 03:50 Poikilocytosis Not Reportable 03/30/17 03:50 Anisocytosis Few 03/30/17 03:50 Microcytosis Not Reportable 03/30/17 03:50 Macrocytosis Not Reportable 03/30/17 03:50 Spherocytes Not Reportable 03/30/17 03:50 Pappenheimer Bodies Not Reportable 03/30/17 03:50 Sickle Cells Not Reportable 03/30/17 03:50 Target Cells Not Reportable 03/30/17 03:50 Tear Drop Cells Not Reportable 03/30/17 03:50 Ovalocytes Not Reportable 03/30/17 03:50 Helmet Cells Not Reportable 03/30/17 03:50 [place] Bodies Not Reportable 03/30/17 03:50 [place] Rings Not Reportable 03/30/17 03:50 [place] Cells Not Reportable 03/30/17 03:50 Bite Cells Not Reportable 03/30/17 03:50 Crenated Cell Not Reportable 03/30/17 03:50 Elliptocytes Not Reportable 03/30/17 03:50 Acanthocytes (Spur) Not Reportable 03/30/17 03:50 Rouleaux Not Reportable 03/30/17 03:50 Hemoglobin C Crystals Not Reportable 03/30/17 03:50 Schistocytes Not Reportable 03/30/17 03:50 Malaria parasites Not Reportable 03/30/17 03:50 [place] Bodies Not Reportable 03/30/17 03:50 Hem Pathologist Commnt No 03/30/17 03:50 PT 14.9 Sec. (12.2-14.9) 04/10/17 04:16 INR 1.11 (0.87-1.13) 04/10/17 04:16 APTT 27.8 Sec. (24.2-36.6) 04/10/17 04:16 Activated Clotting Time 92 (74-137) 03/29/17 17:47 POC ABG pH 7.524 (7.35-7.45) H 05/09/17 04:19 POC ABG pCO2 34.7 (35-45) L 05/09/17 04:19 POC ABG pO2 107 (80-105) H 05/09/17 04:19 POC ABG HCO3 28.6 05/09/17 04:19 POC ABG Total CO2 30 05/09/17 04:19 POC ABG O2 Sat 99 05/09/17 04:19 POC ABG Base Excess 6 05/09/17 04:19 FiO2 25 % 05/09/17 04:19 Sodium 140 mmol/L (137-145) 05/17/17 03:45 Potassium 3.8 mmol/L (3.6-5.0) 05/17/17 03:45 Chloride 100.5 mmol/L (98-107) 05/17/17 03:45 Carbon Dioxide 25 mmol/L (22-30) 05/17/17 03:45 Anion Gap 18 mmol/L 05/17/17 03:45 BUN 17 mg/dL (9-20) 05/17/17 03:45 Creatinine 0.2 mg/dL (0.8-1.5) L 05/17/17 03:45 Estimated GFR > 60 ml/min 05/17/17 03:45 BUN/Creatinine Ratio 85 % 05/17/17 03:45 Glucose 131 mg/dL (75-100) H 05/17/17 03:45 POC Glucose 129 (70-105) H 05/27/17 05:33 Calcium 9.1 mg/dL (8.4-10.2) 05/17/17 03:45 Phosphorus 3.50 mg/dL (2.5-4.5) 04/13/17 04:45 Magnesium 1.80 mg/dL (1.7-2.3) 05/01/17 05:30 Total Bilirubin 0.60 mg/dL (0.1-1.2) 05/01/17 05:30 Direct Bilirubin < 0.2 mg/dL (0-0.2) 04/27/17 05:40 Indirect Bilirubin 0.3 mg/dL 04/25/17 04:51 AST 71 units/L (5-40) H 05/01/17 05:30 ALT 125 units/L (7-56) H 05/01/17 05:30 Alkaline Phosphatase 158 units/L (35-129) H 05/01/17 05:30 Total Creatine Kinase 1404 units/L (55-170) H 04/12/17 21:36 CK-MB (CK-2) 8.0 ng/mL (0.0-4.0) H 04/12/17 21:36 CK-MB (CK-2) Rel Index 0.5 (0-4) 04/12/17 21:36 Troponin T 0.767 ng/mL (0.00-0.029) H* 04/12/17 21:36 C-Reactive Protein 21.80 mg/dL (0.00-1.30) H 03/30/17 16:04 Total Protein 6.7 g/dL (6.3-8.2) 05/01/17 05:30 Albumin 2.6 g/dL (3.9-5) L 05/01/17 05:30 Albumin/Globulin Ratio 0.6 % 05/01/17 05:30 Triglycerides 151 mg/dL (2-149) H 04/01/17 04:29 Cholesterol 164 mg/dL (50-199) 03/29/17 19:52 LDL Cholesterol Direct 81 mg/dL (50-130) 03/29/17 19:52 HDL Cholesterol 44 mg/dL (40-59) 03/29/17 19:52 Cholesterol/HDL Ratio 3.72 % 03/29/17 19:52 Urine Color [place] (Yellow) 04/21/17 22:00 Urine Turbidity Clear (Clear) 04/21/17 22:00 Urine pH 5.0 (5.0-7.0) 04/21/17 22:00 Ur Specific [place] 1.029 (1.003-1.030) 04/21/17 22:00 Urine Protein 30 mg/dl mg/dL (Negative) 04/21/17 22:00 Urine Glucose (UA) Neg mg/dL (Negative) 04/21/17 22:00 Urine Ketones Neg mg/dL (Negative) 04/21/17 22:00 Urine Blood Mod (Negative) 04/21/17 22:00 Urine Nitrite Neg (Negative) 04/21/17 22:00 Urine Bilirubin Neg (Negative) 04/21/17 22:00 Urine Urobilinogen 4.0 mg/dL (<2.0) 04/21/17 22:00 Ur Leukocyte Esterase Neg (Negative) 04/21/17 22:00 Urine WBC (Auto) 10.0 /HPF (0.0-6.0) H 04/21/17 22:00 Urine RBC (Auto) 44.0 /HPF (0.0-6.0) 04/21/17 22:00 U Epithel Cells (Auto) < 1.0 /HPF (0-13.0) 04/21/17 22:00 Amorphous Crystals 1+ 03/30/17 09:45 Urine Mucus 3+ /HPF 04/21/17 22:00 Urine Opiates Screen Presumptive negative 03/30/17 09:45 Urine Methadone Screen Presumptive negative 03/30/17 09:45 Ur Barbiturates Screen Presumptive negative 03/30/17 09:45 Ur Phencyclidine Scrn Presumptive negative 03/30/17 09:45 Ur Amphetamines Screen Presumptive positive 03/30/17 09:45 U Benzodiazepines Scrn Presumptive positive 03/30/17 09:45 Urine Cocaine Screen Presumptive negative 03/30/17 09:45 U Marijuana (THC) Screen Presumptive negative 03/30/17 09:45 Drugs of Abuse Note Disclamer 03/30/17 09:45 Miscellaneous Test Flexitest 1 H 04/25/17 07:07 Blood Type O POSITIVE 03/29/17 11:35 Antibody Screen Negative 03/29/17 11:35
[2017-05-27] MEDS: LOPRESSOR PO SCH ×2 (10:30→21:28)
[2017-05-27] MEDS: ZESTRIL PO SCH (10:30)
[2017-05-27] MEDS: ELIQUIS PO SCH ×2 (11:08→21:30)
[2017-05-27] MEDS: CORDARONE PO SCH ×2 (11:08→21:28)
[2017-05-27] MEDS: ASPIRIN PO SCH (11:08)
[2017-05-27] MEDS: PROTONIX FEEDTUBE SCH (11:09)
[2017-05-27] MEDS: PLAVIX PO SCH (11:09)
[2017-05-27] MEDS: TRANSDERM-SCOP TD SCH (11:09)
--- NOTE | 2017-05-28 08:17 | Progress Note ---
Assessment and Plan Assessment and plan: 46 y/o male with out of hospital Vfib arrest, s/p LHC with stent placement, likely with anoxic encephalopathy, status post trach and peg. V. fib arrest status post, CPR :anoxic encephalopathy respiratory failure vent dependent tracheostomy and PEG placement. Anoxic encephalopathy. Supportive care Acute hypoxic hypercapnic respiratory failure; status post trach, vent dependent , Hematuria; unknown etiology, resolved Acute Cystitis treated with abx s/p cardiac arrest /anoxic encephalopathy/vegetative state Acute anterior STEMI; status post PCI, s/p MRSA pneumonia/aspiration pneumonia, s/p full treatment, contact isolation Hypertension; monitor blood pressures and adjust medications as needed Aspiration pneumonia; sepsis; received full course of antibiotics Cardiogenic shock; off pressors, s/p trach and PEG, continue PEG feeds Severe Protein calorie malnutrition: Peg feeds and nutrition supplements DVT prophylaxis; Lovenox Continue current management Full CODE STATUS Poor prognosis family aware, Multiple family meetings in the past. S Family requests to continue full CODE STATUS Poor prognosis History Interval history: Still unresponsive Hospitalist Physical - Physical exam Narrative exam: Gen appearance: Not in acute distress, lying in bed HEENT:Normocephalic,atraumatic Neck: Tracheostomy to ventilator Lungs: Clear to auscultation bilaterally, no crackles , no wheeze Heart: S1 and S2 regular, no murmurs, rubs or gallop Abdomen: soft, non tender, non distended, normal bowel sounds Ext: No edema, no clubbing, no cyanosis Neuro: Unresponsive, does not follow commands - Constitutional Vitals: Temp Pulse Resp BP Pulse Ox 98.2 F 95 H 18 108/66 100 05/28/17 04:00 05/28/17 06:00 05/28/17 06:00 05/28/17 06:00 05/28/17 06:00 General appearance: Present: other (tracheostomy on vent) Results - Labs CBC & Chem 7: 05/17/17 03:45 05/17/17 03:45 Labs: Laboratory Last Values WBC 9.4 K/mm3 (4.5-11.0) 05/17/17 03:45 RBC 3.85 M/mm3 (3.65-5.03) 05/17/17 03:45 Hgb 11.7 gm/dl (11.8-15.2) L 05/17/17 03:45 Hct 34.8 % (35.5-45.6) L 05/17/17 03:45 MCV 90 fl (84-94) 05/17/17 03:45 MCH 31 pg (28-32) 05/17/17 03:45 MCHC 34 % (32-34) 05/17/17 03:45 RDW 15.5 % (13.2-15.2) H 05/17/17 03:45 Plt Count 289 K/mm3 (140-440) 05/17/17 03:45 Lymph % (Auto) 15.6 % (13.4-35.0) 05/17/17 03:45 [place] % (Auto) 7.7 % (0.0-7.3) H 05/17/17 03:45 Eos % (Auto) 2.7 % (0.0-4.3) 05/17/17 03:45 Baso % (Auto) 0.3 % (0.0-1.8) 05/17/17 03:45 Lymph # 1.5 K/mm3 (1.2-5.4) 05/17/17 03:45 [place] # 0.7 K/mm3 (0.0-0.8) 05/17/17 03:45 Eos # 0.3 K/mm3 (0.0-0.4) 05/17/17 03:45 Baso # 0.0 K/mm3 (0.0-0.1) 05/17/17 03:45 Add Manual Diff Complete 03/30/17 03:50 Total Counted 100 03/30/17 03:50 Seg Neutrophils % 73.7 % (40.0-70.0) H 05/17/17 03:45 Seg Neuts % (Manual) 65.0 % (40.0-70.0) 03/30/17 03:50 Band Neutrophils % 17.0 % 03/30/17 03:50 Lymphocytes % (Manual) 7.0 % (13.4-35.0) L 03/30/17 03:50 Reactive Lymphs % (Man) 0 % 03/30/17 03:50 Monocytes % (Manual) 7.0 % (0.0-7.3) 03/30/17 03:50 Eosinophils % (Manual) 0 % (0.0-4.3) 03/30/17 03:50 Basophils % (Manual) 0 % (0.0-1.8) 03/30/17 03:50 Metamyelocytes % 4.0 % 03/30/17 03:50 Myelocytes % 0 % 03/30/17 03:50 Promyelocytes % 0 % 03/30/17 03:50 Blast Cells % 0 % 03/30/17 03:50 Nucleated RBC % Not Reportable 03/30/17 03:50 Seg Neutrophils # 6.9 K/mm3 (1.8-7.7) 05/17/17 03:45 Seg Neutrophils # Man 12.7 K/mm3 (1.8-7.7) H 03/30/17 03:50 Band Neutrophils # 3.3 K/mm3 03/30/17 03:50 Lymphocytes # (Manual) 1.4 K/mm3 (1.2-5.4) 03/30/17 03:50 Abs React Lymphs (Man) 0.0 K/mm3 03/30/17 03:50 Monocytes # (Manual) 1.4 K/mm3 (0.0-0.8) H 03/30/17 03:50 Eosinophils # (Manual) 0.0 K/mm3 (0.0-0.4) 03/30/17 03:50 Basophils # (Manual) 0.0 K/mm3 (0.0-0.1) 03/30/17 03:50 Metamyelocytes # 0.8 K/mm3 03/30/17 03:50 Myelocytes # 0.0 K/mm3 03/30/17 03:50 Promyelocytes # 0.0 K/mm3 03/30/17 03:50 Blast Cells # 0.0 K/mm3 03/30/17 03:50 WBC Morphology Not Reportable 03/30/17 03:50 Hypersegmented Neuts Not Reportable 03/30/17 03:50 Hyposegmented Neuts Not Reportable 03/30/17 03:50 Hypogranular Neuts Not Reportable 03/30/17 03:50 Smudge Cells Not Reportable 03/30/17 03:50 Toxic Granulation Not Reportable 03/30/17 03:50 Toxic Vacuolation Not Reportable 03/30/17 03:50 Dohle Bodies Not Reportable 03/30/17 03:50 Pelger-Huet Anomaly Not Reportable 03/30/17 03:50 Sherry Rods Not Reportable 03/30/17 03:50 Platelet Estimate Appears normal 03/30/17 03:50 Clumped Platelets Not Reportable 03/30/17 03:50 Plt Clumps, EDTA Not Reportable 03/30/17 03:50 Large Platelets Not Reportable 03/30/17 03:50 Giant Platelets Not Reportable 03/30/17 03:50 Platelet Satelliting Not Reportable 03/30/17 03:50 Plt Morphology Comment Not Reportable 03/30/17 03:50 RBC Morphology Not Reportable 03/30/17 03:50 Dimorphic RBCs Not Reportable 03/30/17 03:50 Polychromasia Not Reportable 03/30/17 03:50 Hypochromasia Not Reportable 03/30/17 03:50 Poikilocytosis Not Reportable 03/30/17 03:50 Anisocytosis Few 03/30/17 03:50 Microcytosis Not Reportable 03/30/17 03:50 Macrocytosis Not Reportable 03/30/17 03:50 Spherocytes Not Reportable 03/30/17 03:50 Pappenheimer Bodies Not Reportable 03/30/17 03:50 Sickle Cells Not Reportable 03/30/17 03:50 Target Cells Not Reportable 03/30/17 03:50 Tear Drop Cells Not Reportable 03/30/17 03:50 Ovalocytes Not Reportable 03/30/17 03:50 Helmet Cells Not Reportable 03/30/17 03:50 [place] Bodies Not Reportable 03/30/17 03:50 [place] Rings Not Reportable 03/30/17 03:50 [place] Cells Not Reportable 03/30/17 03:50 Bite Cells Not Reportable 03/30/17 03:50 Crenated Cell Not Reportable 03/30/17 03:50 Elliptocytes Not Reportable 03/30/17 03:50 Acanthocytes (Spur) Not Reportable 03/30/17 03:50 Rouleaux Not Reportable 03/30/17 03:50 Hemoglobin C Crystals Not Reportable 03/30/17 03:50 Schistocytes Not Reportable 03/30/17 03:50 Malaria parasites Not Reportable 03/30/17 03:50 Jermaine Bodies Not Reportable 03/30/17 03:50 Hem Pathologist Commnt No 03/30/17 03:50 PT 14.9 Sec. (12.2-14.9) 04/10/17 04:16 INR 1.11 (0.87-1.13) 04/10/17 04:16 APTT 27.8 Sec. (24.2-36.6) 04/10/17 04:16 Activated Clotting Time 92 (74-137) 03/29/17 17:47 POC ABG pH 7.524 (7.35-7.45) H 05/09/17 04:19 POC ABG pCO2 34.7 (35-45) L 05/09/17 04:19 POC ABG pO2 107 (80-105) H 05/09/17 04:19 POC ABG HCO3 28.6 05/09/17 04:19 POC ABG Total CO2 30 05/09/17 04:19 POC ABG O2 Sat 99 05/09/17 04:19 POC ABG Base Excess 6 05/09/17 04:19 FiO2 25 % 05/09/17 04:19 Sodium 140 mmol/L (137-145) 05/17/17 03:45 Potassium 3.8 mmol/L (3.6-5.0) 05/17/17 03:45 Chloride 100.5 mmol/L (98-107) 05/17/17 03:45 Carbon Dioxide 25 mmol/L (22-30) 05/17/17 03:45 Anion Gap 18 mmol/L 05/17/17 03:45 BUN 17 mg/dL (9-20) 05/17/17 03:45 Creatinine 0.2 mg/dL (0.8-1.5) L 05/17/17 03:45 Estimated GFR > 60 ml/min 05/17/17 03:45 BUN/Creatinine Ratio 85 % 05/17/17 03:45 Glucose 131 mg/dL (75-100) H 05/17/17 03:45 POC Glucose 95 (70-105) 05/28/17 05:51 Calcium 9.1 mg/dL (8.4-10.2) 05/17/17 03:45 Phosphorus 3.50 mg/dL (2.5-4.5) 04/13/17 04:45 Magnesium 1.80 mg/dL (1.7-2.3) 05/01/17 05:30 Total Bilirubin 0.60 mg/dL (0.1-1.2) 05/01/17 05:30 Direct Bilirubin < 0.2 mg/dL (0-0.2) 04/27/17 05:40 Indirect Bilirubin 0.3 mg/dL 04/25/17 04:51 AST 71 units/L (5-40) H 05/01/17 05:30 ALT 125 units/L (7-56) H 05/01/17 05:30 Alkaline Phosphatase 158 units/L (35-129) H 05/01/17 05:30 Total Creatine Kinase 1404 units/L (55-170) H 04/12/17 21:36 CK-MB (CK-2) 8.0 ng/mL (0.0-4.0) H 04/12/17 21:36 CK-MB (CK-2) Rel Index 0.5 (0-4) 04/12/17 21:36 Troponin T 0.767 ng/mL (0.00-0.029) H* 04/12/17 21:36 C-Reactive Protein 21.80 mg/dL (0.00-1.30) H 03/30/17 16:04 Total Protein 6.7 g/dL (6.3-8.2) 05/01/17 05:30 Albumin 2.6 g/dL (3.9-5) L 05/01/17 05:30 Albumin/Globulin Ratio 0.6 % 05/01/17 05:30 Triglycerides 151 mg/dL (2-149) H 04/01/17 04:29 Cholesterol 164 mg/dL (50-199) 03/29/17 19:52 LDL Cholesterol Direct 81 mg/dL (50-130) 03/29/17 19:52 HDL Cholesterol 44 mg/dL (40-59) 03/29/17 19:52 Cholesterol/HDL Ratio 3.72 % 03/29/17 19:52 Urine Color [place] (Yellow) 04/21/17 22:00 Urine Turbidity Clear (Clear) 04/21/17 22:00 Urine pH 5.0 (5.0-7.0) 04/21/17 22:00 Ur Specific [place] 1.029 (1.003-1.030) 04/21/17 22:00 Urine Protein 30 mg/dl mg/dL (Negative) 04/21/17 22:00 Urine Glucose (UA) Neg mg/dL (Negative) 04/21/17 22:00 Urine Ketones Neg mg/dL (Negative) 04/21/17 22:00 Urine Blood Mod (Negative) 04/21/17 22:00 Urine Nitrite Neg (Negative) 04/21/17 22:00 Urine Bilirubin Neg (Negative) 04/21/17 22:00 Urine Urobilinogen 4.0 mg/dL (<2.0) 04/21/17 22:00 Ur Leukocyte Esterase Neg (Negative) 04/21/17 22:00 Urine WBC (Auto) 10.0 /HPF (0.0-6.0) H 04/21/17 22:00 Urine RBC (Auto) 44.0 /HPF (0.0-6.0) 04/21/17 22:00 U Epithel Cells (Auto) < 1.0 /HPF (0-13.0) 04/21/17 22:00 Amorphous Crystals 1+ 03/30/17 09:45 Urine Mucus 3+ /HPF 04/21/17 22:00 Urine Opiates Screen Presumptive negative 03/30/17 09:45 Urine Methadone Screen Presumptive negative 03/30/17 09:45 Ur Barbiturates Screen Presumptive negative 03/30/17 09:45 Ur Phencyclidine Scrn Presumptive negative 03/30/17 09:45 Ur Amphetamines Screen Presumptive positive 03/30/17 09:45 U Benzodiazepines Scrn Presumptive positive 03/30/17 09:45 Urine Cocaine Screen Presumptive negative 03/30/17 09:45 U Marijuana (THC) Screen Presumptive negative 03/30/17 09:45 Drugs of Abuse Note Disclamer 03/30/17 09:45 Miscellaneous Test Flexitest 1 H 04/25/17 07:07 Blood Type O POSITIVE 03/29/17 11:35 Antibody Screen Negative 03/29/17 11:35
--- NOTE | 2017-05-28 08:54 | Progress Note ---
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 No new recommendations for today. Patient remains full code and will continue PSV as tolerated with hopes of weaning to T-piece 1. PSV as tolerated with a goal to get to T-piece 2. Once tolerates T-piece for 24 hours, can consider transfer to floor, this is highly unlikely. 3. reviewed neurology note and agree with assessment 4. Continue all other cardiac meds 5. Overall prognosis still remains poor given amount of downtime during arrest. 6. Family meeting held, they feel the patient will overcome this current state as they have had other family members do the same. Very in depth conversation about the prognosis and current clinical state. I've made my best attempt to help them understand. Neuro agrees. Will continue supportive measures and attempt to wean. CCT 31 minutes. Subjective Date of service: 05/28/17 Principal diagnosis: coma,ARV,s/p arrest Interval history: no acute events overnight. Mental state is still the same. No family at bedside. Still having episodes of apnea and not tolerating long periods of PSV. Objective Vital Signs - 12hr 05/27/17 05/27/17 05/27/17 21:00 21:28 21:31 Temperature Pulse Rate 78 92 H Pulse Rate [ Left Dorsalis Pedis] Pulse Rate [ Right Dorsalis Pedis] Pulse Rate [ Right Radial] Respiratory 19 Rate Blood Pressure 99/65 97/56 O2 Sat by Pulse 98 Oximetry O2 Sat by Pulse Oximetry [ Assessment] 05/27/17 05/27/17 05/27/17 22:00 23:00 23:14 Temperature Pulse Rate 79 80 80 Pulse Rate [ Left Dorsalis Pedis] Pulse Rate [ Right Dorsalis Pedis] Pulse Rate [ Right Radial] Respiratory 24 23 Rate Blood Pressure 114/62 108/66 108/66 O2 Sat by Pulse 95 98 98 Oximetry O2 Sat by Pulse 98 Oximetry [ Assessment] 05/27/17 05/27/17 05/28/17 23:21 23:27 00:00 Temperature 98.3 F Pulse Rate 79 75 Pulse Rate [ 89 Left Dorsalis Pedis] Pulse Rate [ 89 Right Dorsalis Pedis] Pulse Rate [ 89 Right Radial] Respiratory 15 16 25 H Rate Blood Pressure 108/66 102/66 O2 Sat by Pulse 97 97 97 Oximetry O2 Sat by Pulse Oximetry [ Assessment] 05/28/17 05/28/17 05/28/17 01:00 02:00 03:00 Temperature Pulse Rate 78 95 H 71 Pulse Rate [ Left Dorsalis Pedis] Pulse Rate [ Right Dorsalis Pedis] Pulse Rate [ Right Radial] Respiratory 19 24 16 Rate Blood Pressure 99/63 102/60 93/49 O2 Sat by Pulse 96 94 96 Oximetry O2 Sat by Pulse Oximetry [ Assessment] 05/28/17 05/28/17 05/28/17 04:00 04:01 04:10 Temperature 98.2 F Pulse Rate 86 83 Pulse Rate [ Left Dorsalis Pedis] Pulse Rate [ Right Dorsalis Pedis] Pulse Rate [ Right Radial] Respiratory 16 Rate Blood Pressure 95/52 109/71 O2 Sat by Pulse 99 95 100 Oximetry O2 Sat by Pulse Oximetry [ Assessment] 05/28/17 05/28/17 05/28/17 05:00 05:52 06:00 Temperature Pulse Rate 73 95 H Pulse Rate [ Left Dorsalis Pedis] Pulse Rate [ Right Dorsalis Pedis] Pulse Rate [ Right Radial] Respiratory 21 18 Rate Blood Pressure 109/75 108/66 O2 Sat by Pulse 99 99 100 Oximetry O2 Sat by Pulse Oximetry [ Assessment] 05/28/17 05/28/17 05/28/17 07:00 08:00 08:18 Temperature Pulse Rate 67 82 81 Pulse Rate [ Left Dorsalis Pedis] Pulse Rate [ Right Dorsalis Pedis] Pulse Rate [ Right Radial] Respiratory 14 14 14 Rate Blood Pressure 94/54 85/55 85/55 O2 Sat by Pulse 100 97 100 Oximetry O2 Sat by Pulse Oximetry [ Assessment] 05/28/17 08:27 Temperature Pulse Rate 60 Pulse Rate [ Left Dorsalis Pedis] Pulse Rate [ Right Dorsalis Pedis] Pulse Rate [ Right Radial] Respiratory Rate Blood Pressure 85/55 O2 Sat by Pulse 100 Oximetry O2 Sat by Pulse Oximetry [ Assessment] Constitutional: no acute distress, comatose Eyes: non-icteric ENT: oropharynx moist Neck: supple, other (tracheotomy ) Effort: normal Ascultation: Bilateral: clear, diminished breath sounds, other (coarse BS bilaterally) Percussion: Bilateral: not dull Cardiovascular: regular rate and rhythm Gastrointestinal: normoactive bowel sounds, soft, non-tender, non-distended Integumentary: normal Extremities: no cyanosis, no edema, pink and warm Neurologic: other (nonresponsive with flaccid extremities) Psychiatric: other (eyes open spontaneously but does not follow any voice commands, otherwise nonresponsive except for pain) CBC and BMP: 05/17/17 03:45 05/17/17 03:45 ABG, PT/INR, D-dimer: ABG POC ABG pH 7.524 (7.35-7.45) H 05/09/17 04:19 POC ABG pCO2 34.7 (35-45) L 05/09/17 04:19 POC ABG pO2 107 (80-105) H 05/09/17 04:19 POC ABG HCO3 28.6 05/09/17 04:19 POC ABG Total CO2 30 05/09/17 04:19 POC ABG O2 Sat 99 05/09/17 04:19 PT/INR, D-dimer PT 14.9 Sec. (12.2-14.9) 04/10/17 04:16 INR 1.11 (0.87-1.13) 04/10/17 04:16 Abnormal lab findings: Abnormal Labs 03/29/17 03/29/17 03/29/17 11:35 11:35 11:40 WBC RBC Hgb Hct MCV 98 H MCH 33 H RDW Plt Count Lymph % (Auto) [place] % (Auto) Eos % (Auto) Baso % (Auto) Lymph # Baso # Seg Neutrophils % Lymphocytes % (Manual) Monocytes % (Manual) 9.0 H Nucleated RBC % 1.0 H Seg Neutrophils # Seg Neutrophils # Man Monocytes # (Manual) 0.9 H PT 15.8 H INR 1.20 H Activated Clotting Time POC ABG pH POC ABG pCO2 POC ABG pO2 Sodium Potassium 2.7 L* Chloride 95.3 L Carbon Dioxide 17 L BUN Creatinine Glucose 435 H POC Glucose Calcium Magnesium Direct Bilirubin AST ALT Alkaline Phosphatase Total Creatine Kinase CK-MB (CK-2) CK-MB (CK-2) Rel Index Troponin T C-Reactive Protein Total Protein 6.1 L Albumin 3.5 L Triglycerides Ur Specific [place] Urine WBC (Auto) Miscellaneous Test 03/29/17 03/29/17 03/29/17 12:34 13:10 13:25 WBC RBC Hgb Hct MCV MCH RDW Plt Count Lymph % (Auto) [place] % (Auto) Eos % (Auto) Baso % (Auto) Lymph # Baso # Seg Neutrophils % Lymphocytes % (Manual) Monocytes % (Manual) Nucleated RBC % Seg Neutrophils # Seg Neutrophils # Man Monocytes # (Manual) PT INR Activated Clotting Time 142 H 169 H 175 H POC ABG pH POC ABG pCO2 POC ABG pO2 Sodium Potassium Chloride Carbon Dioxide BUN Creatinine Glucose POC Glucose Calcium Magnesium Direct Bilirubin AST ALT Alkaline Phosphatase Total Creatine Kinase CK-MB (CK-2) CK-MB (CK-2) Rel Index Troponin T C-Reactive Protein Total Protein Albumin Triglycerides Ur Specific [place] Urine WBC (Auto) Miscellaneous Test 03/29/17 03/29/17 03/29/17 14:50 15:18 19:52 WBC RBC Hgb Hct MCV MCH RDW Plt Count Lymph % (Auto) [place] % (Auto) Eos % (Auto) Baso % (Auto) Lymph # Baso # Seg Neutrophils % Lymphocytes % (Manual) Monocytes % (Manual) Nucleated RBC % Seg Neutrophils # Seg Neutrophils # Man Monocytes # (Manual) PT INR Activated Clotting Time 175 H POC ABG pH 7.293 L POC ABG pCO2 POC ABG pO2 602 H Sodium Potassium Chloride Carbon Dioxide BUN Creatinine Glucose POC Glucose Calcium Magnesium Direct Bilirubin AST ALT Alkaline Phosphatase Total Creatine Kinase 7263 H CK-MB (CK-2) > 300.0 H CK-MB (CK-2) Rel Index 4.1 H Troponin T 8.080 H* D C-Reactive Protein Total Protein Albumin Triglycerides 195 H Ur Specific [place] Urine WBC (Auto) Miscellaneous Test 03/30/17 03/30/17 03/30/17 03:50 03:50 06:19 WBC 19.5 H RBC Hgb Hct MCV MCH RDW Plt Count Lymph % (Auto) [place] % (Auto) Eos % (Auto) Baso % (Auto) Lymph # Baso # Seg Neutrophils % Lymphocytes % (Manual) 7.0 L Monocytes % (Manual) Nucleated RBC % Seg Neutrophils # Seg Neutrophils # Man 12.7 H Monocytes # (Manual) 1.4 H PT INR Activated Clotting Time POC ABG pH POC ABG pCO2 28.2 L POC ABG pO2 108 H Sodium Potassium Chloride 108.9 H Carbon Dioxide 15 L BUN 25 H Creatinine Glucose 158 H POC Glucose Calcium 8.1 L Magnesium Direct Bilirubin AST ALT Alkaline Phosphatase Total Creatine Kinase 7963 H CK-MB (CK-2) > 300.0 H CK-MB (CK-2) Rel Index Troponin T 6.850 H* C-Reactive Protein Total Protein Albumin Triglycerides Ur Specific [place] Urine WBC (Auto) Miscellaneous Test 03/30/17 03/30/17 03/31/17 09:45 16:04 02:19 WBC RBC Hgb Hct MCV MCH RDW Plt Count Lymph % (Auto) [place] % (Auto) Eos % (Auto) Baso % (Auto) Lymph # Baso # Seg Neutrophils % Lymphocytes % (Manual) Monocytes % (Manual) Nucleated RBC % Seg Neutrophils # Seg Neutrophils # Man Monocytes # (Manual) PT INR Activated Clotting Time POC ABG pH POC ABG pCO2 POC ABG pO2 Sodium Potassium Chloride Carbon Dioxide BUN Creatinine Glucose POC Glucose 137 H Calcium Magnesium Direct Bilirubin AST ALT Alkaline Phosphatase Total Creatine Kinase CK-MB (CK-2) CK-MB (CK-2) Rel Index Troponin T C-Reactive Protein 21.80 H Total Protein Albumin Triglycerides Ur Specific [place] 1.031 H Urine WBC (Auto) Miscellaneous Test 03/31/17 03/31/17 03/31/17 03:57 06:54 09:22 WBC RBC Hgb Hct MCV MCH RDW Plt Count Lymph % (Auto) [place] % (Auto) Eos % (Auto) Baso % (Auto) Lymph # Baso # Seg Neutrophils % Lymphocytes % (Manual) Monocytes % (Manual) Nucleated RBC % Seg Neutrophils # Seg Neutrophils # Man Monocytes # (Manual) PT INR Activated Clotting Time POC ABG pH 7.475 H POC ABG pCO2 25.4 L POC ABG pO2 62 L Sodium Potassium Chloride Carbon Dioxide 19 L BUN 22 H Creatinine 0.6 L Glucose 148 H POC Glucose 143 H Calcium 8.3 L Magnesium Direct Bilirubin AST ALT Alkaline Phosphatase Total Creatine Kinase CK-MB (CK-2) CK-MB (CK-2) Rel Index Troponin T C-Reactive Protein Total Protein Albumin Triglycerides Ur Specific [place] Urine WBC (Auto) Miscellaneous Test 03/31/17 03/31/17 03/31/17 11:40 17:47 23:38 WBC RBC Hgb Hct MCV MCH RDW Plt Count Lymph % (Auto) [place] % (Auto) Eos % (Auto) Baso % (Auto) Lymph # Baso # Seg Neutrophils % Lymphocytes % (Manual) Monocytes % (Manual) Nucleated RBC % Seg Neutrophils # Seg Neutrophils # Man Monocytes # (Manual) PT INR Activated Clotting Time POC ABG pH POC ABG pCO2 POC ABG pO2 Sodium Potassium Chloride Carbon Dioxide BUN Creatinine Glucose POC Glucose 127 H 137 H 148 H Calcium Magnesium Direct Bilirubin AST ALT Alkaline Phosphatase Total Creatine Kinase CK-MB (CK-2) CK-MB (CK-2) Rel Index Troponin T C-Reactive Protein Total Protein Albumin Triglycerides Ur Specific [place] Urine WBC (Auto) Miscellaneous Test 04/01/17 04/01/17 04/01/17 04:29 05:01 11:54 WBC RBC Hgb Hct MCV MCH RDW Plt Count Lymph % (Auto) [place] % (Auto) Eos % (Auto) Baso % (Auto) Lymph # Baso # Seg Neutrophils % Lymphocytes % (Manual) Monocytes % (Manual) Nucleated RBC % Seg Neutrophils # Seg Neutrophils # Man Monocytes # (Manual) PT INR Activated Clotting Time POC ABG pH 7.513 H POC ABG pCO2 22.1 L POC ABG pO2 64 L Sodium Potassium Chloride Carbon Dioxide BUN Creatinine Glucose POC Glucose 121 H Calcium Magnesium Direct Bilirubin AST ALT Alkaline Phosphatase Total Creatine Kinase CK-MB (CK-2) CK-MB (CK-2) Rel Index Troponin T C-Reactive Protein Total Protein Albumin Triglycerides 151 H Ur Specific [place] Urine WBC (Auto) Miscellaneous Test 04/01/17 04/02/17 04/02/17 18:17 00:11 04:52 WBC RBC Hgb Hct MCV MCH RDW Plt Count Lymph % (Auto) [place] % (Auto) Eos % (Auto) Baso % (Auto) Lymph # Baso # Seg Neutrophils % Lymphocytes % (Manual) Monocytes % (Manual) Nucleated RBC % Seg Neutrophils # Seg Neutrophils # Man Monocytes # (Manual) PT INR Activated Clotting Time POC ABG pH 7.524 H POC ABG pCO2 25.5 L POC ABG pO2 66 L Sodium Potassium Chloride Carbon Dioxide BUN Creatinine Glucose POC Glucose 117 H 122 H Calcium Magnesium Direct Bilirubin AST ALT Alkaline Phosphatase Total Creatine Kinase CK-MB (CK-2) CK-MB (CK-2) Rel Index Troponin T C-Reactive Protein Total Protein Albumin Triglycerides Ur Specific [place] Urine WBC (Auto) Miscellaneous Test 04/02/17 04/02/17 04/02/17 05:18 10:41 12:19 WBC RBC Hgb Hct MCV MCH RDW Plt Count Lymph % (Auto) [place] % (Auto) Eos % (Auto) Baso % (Auto) Lymph # Baso # Seg Neutrophils % Lymphocytes % (Manual) Monocytes % (Manual) Nucleated RBC % Seg Neutrophils # Seg Neutrophils # Man Monocytes # (Manual) PT INR Activated Clotting Time POC ABG pH 7.534 H POC ABG pCO2 27.4 L POC ABG pO2 Sodium Potassium Chloride Carbon Dioxide BUN Creatinine Glucose POC Glucose 132 H 129 H Calcium Magnesium Direct Bilirubin AST ALT Alkaline Phosphatase Total Creatine Kinase CK-MB (CK-2) CK-MB (CK-2) Rel Index Troponin T C-Reactive Protein Total Protein Albumin Triglycerides Ur Specific [place] Urine WBC (Auto) Miscellaneous Test 04/02/17 04/03/17 04/03/17 18:05 00:08 05:09 WBC RBC Hgb Hct MCV MCH RDW Plt Count Lymph % (Auto) [place] % (Auto) Eos % (Auto) Baso % (Auto) Lymph # Baso # Seg Neutrophils % Lymphocytes % (Manual) Monocytes % (Manual) Nucleated RBC % Seg Neutrophils # Seg Neutrophils # Man Monocytes # (Manual) PT INR Activated Clotting Time POC ABG pH 7.455 H POC ABG pCO2 33.2 L POC ABG pO2 120 H Sodium Potassium Chloride Carbon Dioxide BUN Creatinine Glucose POC Glucose 136 H 128 H Calcium Magnesium Direct Bilirubin AST ALT Alkaline Phosphatase Total Creatine Kinase CK-MB (CK-2) CK-MB (CK-2) Rel Index Troponin T C-Reactive Protein Total Protein Albumin Triglycerides Ur Specific [place] Urine WBC (Auto) Miscellaneous Test 04/03/17 04/03/17 04/03/17 06:32 11:54 12:16 WBC 11.9 H RBC Hgb Hct MCV MCH RDW Plt Count 125 L Lymph % (Auto) 4.8 L [place] % (Auto) Eos % (Auto) Baso % (Auto) Lymph # 0.6 L Baso # Seg Neutrophils % 86.7 H Lymphocytes % (Manual) Monocytes % (Manual) Nucleated RBC % Seg Neutrophils # 10.3 H Seg Neutrophils # Man Monocytes # (Manual) PT INR Activated Clotting Time POC ABG pH POC ABG pCO2 POC ABG pO2 Sodium Potassium Chloride Carbon Dioxide BUN Creatinine Glucose POC Glucose 138 H 143 H Calcium Magnesium Direct Bilirubin AST ALT Alkaline Phosphatase Total Creatine Kinase CK-MB (CK-2) CK-MB (CK-2) Rel Index Troponin T C-Reactive Protein Total Protein Albumin Triglycerides Ur Specific [place] Urine WBC (Auto) Miscellaneous Test 04/03/17 04/03/17 04/04/17 17:33 23:59 04:34 WBC RBC Hgb Hct MCV MCH RDW Plt Count Lymph % (Auto) [place] % (Auto) Eos % (Auto) Baso % (Auto) Lymph # Baso # Seg Neutrophils % Lymphocytes % (Manual) Monocytes % (Manual) Nucleated RBC % Seg Neutrophils # Seg Neutrophils # Man Monocytes # (Manual) PT INR Activated Clotting Time POC ABG pH 7.457 H POC ABG pCO2 29.8 L POC ABG pO2 76 L Sodium Potassium Chloride Carbon Dioxide BUN Creatinine Glucose POC Glucose 130 H 155 H Calcium Magnesium Direct Bilirubin AST ALT Alkaline Phosphatase Total Creatine Kinase CK-MB (CK-2) CK-MB (CK-2) Rel Index Troponin T C-Reactive Protein Total Protein Albumin Triglycerides Ur Specific [place] Urine WBC (Auto) Miscellaneous Test 04/04/17 04/04/17 04/04/17 05:27 12:22 18:18 WBC RBC Hgb Hct MCV MCH RDW Plt Count Lymph % (Auto) [place] % (Auto) Eos % (Auto) Baso % (Auto) Lymph # Baso # Seg Neutrophils % Lymphocytes % (Manual) Monocytes % (Manual) Nucleated RBC % Seg Neutrophils # Seg Neutrophils # Man Monocytes # (Manual) PT INR Activated Clotting Time POC ABG pH POC ABG pCO2 POC ABG pO2 Sodium Potassium Chloride Carbon Dioxide BUN Creatinine Glucose POC Glucose 164 H 146 H 130 H Calcium Magnesium Direct Bilirubin AST ALT Alkaline Phosphatase Total Creatine Kinase CK-MB (CK-2) CK-MB (CK-2) Rel Index Troponin T C-Reactive Protein Total Protein Albumin Triglycerides Ur Specific [place] Urine WBC (Auto) Miscellaneous Test 04/05/17 04/05/17 04/05/17 04:43 05:28 11:36 WBC RBC Hgb Hct MCV MCH RDW Plt Count Lymph % (Auto) [place] % (Auto) Eos % (Auto) Baso % (Auto) Lymph # Baso # Seg Neutrophils % Lymphocytes % (Manual) Monocytes % (Manual) Nucleated RBC % Seg Neutrophils # Seg Neutrophils # Man Monocytes # (Manual) PT INR Activated Clotting Time POC ABG pH 7.479 H POC ABG pCO2 33.5 L POC ABG pO2 76 L Sodium Potassium Chloride Carbon Dioxide BUN Creatinine Glucose POC Glucose 145 H 136 H Calcium Magnesium Direct Bilirubin AST ALT Alkaline Phosphatase Total Creatine Kinase CK-MB (CK-2) CK-MB (CK-2) Rel Index Troponin T C-Reactive Protein Total Protein Albumin Triglycerides Ur Specific [place] Urine WBC (Auto) Miscellaneous Test 04/05/17 04/06/17 04/06/17 17:58 00:16 05:26 WBC RBC Hgb Hct MCV MCH RDW Plt Count Lymph % (Auto) [place] % (Auto) Eos % (Auto) Baso % (Auto) Lymph # Baso # Seg Neutrophils % Lymphocytes % (Manual) Monocytes % (Manual) Nucleated RBC % Seg Neutrophils # Seg Neutrophils # Man Monocytes # (Manual) PT INR Activated Clotting Time POC ABG pH POC ABG pCO2 POC ABG pO2 Sodium Potassium Chloride Carbon Dioxide BUN Creatinine Glucose POC Glucose 130 H 159 H 146 H Calcium Magnesium Direct Bilirubin AST ALT Alkaline Phosphatase Total Creatine Kinase CK-MB (CK-2) CK-MB (CK-2) Rel Index Troponin T C-Reactive Protein Total Protein Albumin Triglycerides Ur Specific [place] Urine WBC (Auto) Miscellaneous Test 04/06/17 04/06/17 04/07/17 13:11 16:54 11:45 WBC RBC Hgb Hct MCV MCH RDW Plt Count Lymph % (Auto) [place] % (Auto) Eos % (Auto) Baso % (Auto) Lymph # Baso # Seg Neutrophils % Lymphocytes % (Manual) Monocytes % (Manual) Nucleated RBC % Seg Neutrophils # Seg Neutrophils # Man Monocytes # (Manual) PT INR Activated Clotting Time POC ABG pH 7.517 H POC ABG pCO2 32.1 L POC ABG pO2 Sodium Potassium Chloride Carbon Dioxide BUN Creatinine Glucose POC Glucose 132 H 123 H Calcium Magnesium Direct Bilirubin AST ALT Alkaline Phosphatase Total Creatine Kinase CK-MB (CK-2) CK-MB (CK-2) Rel Index Troponin T C-Reactive Protein Total Protein Albumin Triglycerides Ur Specific [place] Urine WBC (Auto) Miscellaneous Test 04/07/17 04/07/17 04/07/17 12:51 17:40 23:55 WBC RBC Hgb Hct MCV MCH RDW Plt Count Lymph % (Auto) [place] % (Auto) Eos % (Auto) Baso % (Auto) Lymph # Baso # Seg Neutrophils % Lymphocytes % (Manual) Monocytes % (Manual) Nucleated RBC % Seg Neutrophils # Seg Neutrophils # Man Monocytes # (Manual) PT INR Activated Clotting Time POC ABG pH POC ABG pCO2 POC ABG pO2 Sodium Potassium Chloride Carbon Dioxide BUN Creatinine Glucose POC Glucose 138 H 154 H 143 H Calcium Magnesium Direct Bilirubin AST ALT Alkaline Phosphatase Total Creatine Kinase CK-MB (CK-2) CK-MB (CK-2) Rel Index Troponin T C-Reactive Protein Total Protein Albumin Triglycerides Ur Specific [place] Urine WBC (Auto) Miscellaneous Test 04/08/17 04/08/17 04/08/17 05:27 11:14 17:44 WBC RBC Hgb Hct MCV MCH RDW Plt Count Lymph % (Auto) [place] % (Auto) Eos % (Auto) Baso % (Auto) Lymph # Baso # Seg Neutrophils % Lymphocytes % (Manual) Monocytes % (Manual) Nucleated RBC % Seg Neutrophils # Seg Neutrophils # Man Monocytes # (Manual) PT INR Activated Clotting Time POC ABG pH POC ABG pCO2 POC ABG pO2 Sodium Potassium Chloride Carbon Dioxide BUN Creatinine Glucose POC Glucose 142 H 153 H 129 H Calcium Magnesium Direct Bilirubin AST ALT Alkaline Phosphatase Total Creatine Kinase CK-MB (CK-2) CK-MB (CK-2) Rel Index Troponin T C-Reactive Protein Total Protein Albumin Triglycerides Ur Specific [place] Urine WBC (Auto) Miscellaneous Test 04/09/17 04/09/17 04/09/17 08:20 11:21 17:37 WBC RBC Hgb Hct MCV MCH RDW Plt Count Lymph % (Auto) [place] % (Auto) Eos % (Auto) Baso % (Auto) Lymph # Baso # Seg Neutrophils % Lymphocytes % (Manual) Monocytes % (Manual) Nucleated RBC % Seg Neutrophils # Seg Neutrophils # Man Monocytes # (Manual) PT INR Activated Clotting Time POC ABG pH POC ABG pCO2 POC ABG pO2 Sodium 147 H Potassium Chloride 108.8 H Carbon Dioxide BUN 39 H Creatinine 0.5 L Glucose 138 H POC Glucose 152 H 109 H Calcium Magnesium Direct Bilirubin AST ALT Alkaline Phosphatase Total Creatine Kinase CK-MB (CK-2) CK-MB (CK-2) Rel Index Troponin T C-Reactive Protein Total Protein Albumin Triglycerides Ur Specific [place] Urine WBC (Auto) Miscellaneous Test 04/10/17 04/10/17 04/10/17 00:13 04:16 04:16 WBC RBC Hgb 11.5 L Hct MCV 96 H MCH RDW Plt Count 103 L Lymph % (Auto) 11.1 L [place] % (Auto) Eos % (Auto) Baso % (Auto) Lymph # Baso # Seg Neutrophils % 81.5 H Lymphocytes % (Manual) Monocytes % (Manual) Nucleated RBC % Seg Neutrophils # 8.8 H Seg Neutrophils # Man Monocytes # (Manual) PT INR Activated Clotting Time POC ABG pH POC ABG pCO2 POC ABG pO2 Sodium 148 H Potassium Chloride 109.0 H Carbon Dioxide BUN 36 H Creatinine 0.5 L Glucose 131 H POC Glucose 127 H Calcium 8.1 L Magnesium 2.40 H Direct Bilirubin AST 206 H ALT 228 H Alkaline Phosphatase 178 H Total Creatine Kinase CK-MB (CK-2) CK-MB (CK-2) Rel Index Troponin T C-Reactive Protein Total Protein Albumin 2.8 L Triglycerides Ur Specific [place] Urine WBC (Auto) Miscellaneous Test 04/10/17 04/10/17 04/10/17 06:01 11:57 18:27 WBC RBC Hgb Hct MCV MCH RDW Plt Count Lymph % (Auto) [place] % (Auto) Eos % (Auto) Baso % (Auto) Lymph # Baso # Seg Neutrophils % Lymphocytes % (Manual) Monocytes % (Manual) Nucleated RBC % Seg Neutrophils # Seg Neutrophils # Man Monocytes # (Manual) PT INR Activated Clotting Time POC ABG pH POC ABG pCO2 POC ABG pO2 Sodium Potassium Chloride Carbon Dioxide BUN Creatinine Glucose POC Glucose 108 H 154 H 130 H Calcium Magnesium Direct Bilirubin AST ALT Alkaline Phosphatase Total Creatine Kinase CK-MB (CK-2) CK-MB (CK-2) Rel Index Troponin T C-Reactive Protein Total Protein Albumin Triglycerides Ur Specific [place] Urine WBC (Auto) Miscellaneous Test 04/11/17 04/11/17 04/12/17 12:25 17:10 00:22 WBC RBC Hgb Hct MCV MCH RDW Plt Count Lymph % (Auto) [place] % (Auto) Eos % (Auto) Baso % (Auto) Lymph # Baso # Seg Neutrophils % Lymphocytes % (Manual) Monocytes % (Manual) Nucleated RBC % Seg Neutrophils # Seg Neutrophils # Man Monocytes # (Manual) PT INR Activated Clotting Time POC ABG pH POC ABG pCO2 POC ABG pO2 Sodium Potassium Chloride Carbon Dioxide BUN Creatinine Glucose POC Glucose 107 H 129 H 128 H Calcium Magnesium Direct Bilirubin AST ALT Alkaline Phosphatase Total Creatine Kinase CK-MB (CK-2) CK-MB (CK-2) Rel Index Troponin T C-Reactive Protein Total Protein Albumin Triglycerides Ur Specific [place] Urine WBC (Auto) Miscellaneous Test 04/12/17 04/12/17 04/12/17 05:00 11:57 17:47 WBC RBC Hgb Hct MCV MCH RDW Plt Count Lymph % (Auto) [place] % (Auto) Eos % (Auto) Baso % (Auto) Lymph # Baso # Seg Neutrophils % Lymphocytes % (Manual) Monocytes % (Manual) Nucleated RBC % Seg Neutrophils # Seg Neutrophils # Man Monocytes # (Manual) PT INR Activated Clotting Time POC ABG pH POC ABG pCO2 POC ABG pO2 Sodium Potassium Chloride Carbon Dioxide BUN Creatinine Glucose POC Glucose 140 H 142 H Calcium Magnesium Direct Bilirubin AST 158 H ALT 184 H Alkaline Phosphatase 170 H Total Creatine Kinase CK-MB (CK-2) CK-MB (CK-2) Rel Index Troponin T C-Reactive Protein Total Protein Albumin 2.8 L Triglycerides Ur Specific [place] Urine WBC (Auto) Miscellaneous Test 04/12/17 04/12/17 04/13/17 21:36 21:36 01:37 WBC RBC Hgb Hct MCV MCH RDW Plt Count Lymph % (Auto) [place] % (Auto) Eos % (Auto) Baso % (Auto) Lymph # Baso # Seg Neutrophils % Lymphocytes % (Manual) Monocytes % (Manual) Nucleated RBC % Seg Neutrophils # Seg Neutrophils # Man Monocytes # (Manual) PT INR Activated Clotting Time POC ABG pH POC ABG pCO2 POC ABG pO2 Sodium Potassium Chloride Carbon Dioxide BUN Creatinine Glucose POC Glucose 126 H Calcium Magnesium Direct Bilirubin AST ALT Alkaline Phosphatase Total Creatine Kinase 1404 H CK-MB (CK-2) 8.0 H CK-MB (CK-2) Rel Index Troponin T 0.767 H* C-Reactive Protein Total Protein Albumin Triglycerides Ur Specific [place] Urine WBC (Auto) Miscellaneous Test 04/13/17 04/13/17 04/13/17 04:45 04:52 12:17 WBC RBC Hgb Hct MCV MCH RDW Plt Count Lymph % (Auto) [place] % (Auto) Eos % (Auto) Baso % (Auto) Lymph # Baso # Seg Neutrophils % Lymphocytes % (Manual) Monocytes % (Manual) Nucleated RBC % Seg Neutrophils # Seg Neutrophils # Man Monocytes # (Manual) PT INR Activated Clotting Time POC ABG pH POC ABG pCO2 POC ABG pO2 Sodium 148 H Potassium Chloride 112.8 H Carbon Dioxide BUN 33 H Creatinine 0.4 L Glucose 121 H POC Glucose 126 H 149 H Calcium Magnesium Direct Bilirubin AST 160 H ALT 189 H Alkaline Phosphatase 166 H Total Creatine Kinase CK-MB (CK-2) CK-MB (CK-2) Rel Index Troponin T C-Reactive Protein Total Protein Albumin 2.6 L Triglycerides Ur Specific [place] Urine WBC (Auto) Miscellaneous Test 04/13/17 04/14/17 04/14/17 17:45 00:20 00:45 WBC RBC Hgb Hct MCV MCH RDW Plt Count Lymph % (Auto) [place] % (Auto) Eos % (Auto) Baso % (Auto) Lymph # Baso # Seg Neutrophils % Lymphocytes % (Manual) Monocytes % (Manual) Nucleated RBC % Seg Neutrophils # Seg Neutrophils # Man Monocytes # (Manual) PT INR Activated Clotting Time POC ABG pH POC ABG pCO2 POC ABG pO2 Sodium Potassium Chloride Carbon Dioxide BUN Creatinine Glucose POC Glucose 130 H 144 H 144 H Calcium Magnesium Direct Bilirubin AST ALT Alkaline Phosphatase Total Creatine Kinase CK-MB (CK-2) CK-MB (CK-2) Rel Index Troponin T C-Reactive Protein Total Protein Albumin Triglycerides Ur Specific [place] Urine WBC (Auto) Miscellaneous Test 04/14/17 04/14/17 04/14/17 05:40 11:06 11:31 WBC RBC Hgb Hct MCV MCH RDW Plt Count Lymph % (Auto) [place] % (Auto) Eos % (Auto) Baso % (Auto) Lymph # Baso # Seg Neutrophils % Lymphocytes % (Manual) Monocytes % (Manual) Nucleated RBC % Seg Neutrophils # Seg Neutrophils # Man Monocytes # (Manual) PT INR Activated Clotting Time POC ABG pH POC ABG pCO2 POC ABG pO2 Sodium Potassium Chloride Carbon Dioxide BUN Creatinine Glucose POC Glucose 139 H 123 H Calcium Magnesium Direct Bilirubin AST ALT Alkaline Phosphatase Total Creatine Kinase CK-MB (CK-2) CK-MB (CK-2) Rel Index Troponin T C-Reactive Protein Total Protein Albumin Triglycerides Ur Specific [place] 1.033 H Urine WBC (Auto) > 182.0 H Miscellaneous Test 04/14/17 04/14/17 04/15/17 18:00 23:52 05:15 WBC 12.5 H RBC 3.38 L Hgb 10.6 L Hct 32.7 L MCV 97 H MCH RDW Plt Count 107 L Lymph % (Auto) 8.7 L [place] % (Auto) Eos % (Auto) Baso % (Auto) Lymph # 1.1 L Baso # Seg Neutrophils % 86.1 H Lymphocytes % (Manual) Monocytes % (Manual) Nucleated RBC % Seg Neutrophils # 10.7 H Seg Neutrophils # Man Monocytes # (Manual) PT INR Activated Clotting Time POC ABG pH POC ABG pCO2 POC ABG pO2 Sodium Potassium Chloride Carbon Dioxide BUN Creatinine Glucose POC Glucose 133 H 133 H Calcium Magnesium Direct Bilirubin AST ALT Alkaline Phosphatase Total Creatine Kinase CK-MB (CK-2) CK-MB (CK-2) Rel Index Troponin T C-Reactive Protein Total Protein Albumin Triglycerides Ur Specific [place] Urine WBC (Auto) Miscellaneous Test 04/15/17 04/15/17 04/15/17 05:15 05:25 11:50 WBC RBC Hgb Hct MCV MCH RDW Plt Count Lymph % (Auto) [place] % (Auto) Eos % (Auto) Baso % (Auto) Lymph # Baso # Seg Neutrophils % Lymphocytes % (Manual) Monocytes % (Manual) Nucleated RBC % Seg Neutrophils # Seg Neutrophils # Man Monocytes # (Manual) PT INR Activated Clotting Time POC ABG pH POC ABG pCO2 POC ABG pO2 Sodium 149 H Potassium 3.5 L Chloride 114.1 H Carbon Dioxide 21 L BUN 29 H Creatinine 0.4 L Glucose 128 H POC Glucose 133 H 107 H Calcium 8.3 L Magnesium Direct Bilirubin 0.4 H AST 149 H ALT 182 H Alkaline Phosphatase 143 H Total Creatine Kinase CK-MB (CK-2) CK-MB (CK-2) Rel Index Troponin T C-Reactive Protein Total Protein Albumin 2.5 L Triglycerides Ur Specific [place] Urine WBC (Auto) Miscellaneous Test 04/15/17 04/16/17 04/16/17 16:55 00:02 03:17 WBC RBC 3.39 L Hgb 10.5 L Hct 32.4 L MCV 96 H MCH RDW Plt Count 106 L Lymph % (Auto) 6.7 L [place] % (Auto) Eos % (Auto) Baso % (Auto) Lymph # 0.6 L Baso # Seg Neutrophils % 86.8 H Lymphocytes % (Manual) Monocytes % (Manual) Nucleated RBC % Seg Neutrophils # 8.2 H Seg Neutrophils # Man Monocytes # (Manual) PT INR Activated Clotting Time POC ABG pH POC ABG pCO2 POC ABG pO2 Sodium Potassium Chloride Carbon Dioxide BUN Creatinine Glucose POC Glucose 146 H 148 H Calcium Magnesium Direct Bilirubin AST ALT Alkaline Phosphatase Total Creatine Kinase CK-MB (CK-2) CK-MB (CK-2) Rel Index Troponin T C-Reactive Protein Total Protein Albumin Triglycerides Ur Specific [place] Urine WBC (Auto) Miscellaneous Test 04/16/17 04/16/17 04/16/17 03:17 05:19 11:13 WBC RBC Hgb Hct MCV MCH RDW Plt Count Lymph % (Auto) [place] % (Auto) Eos % (Auto) Baso % (Auto) Lymph # Baso # Seg Neutrophils % Lymphocytes % (Manual) Monocytes % (Manual) Nucleated RBC % Seg Neutrophils # Seg Neutrophils # Man Monocytes # (Manual) PT INR Activated Clotting Time POC ABG pH POC ABG pCO2 POC ABG pO2 Sodium 149 H Potassium Chloride 111.1 H Carbon Dioxide 20 L BUN 27 H Creatinine 0.3 L Glucose 156 H POC Glucose 171 H 169 H Calcium 8.3 L Magnesium Direct Bilirubin AST ALT Alkaline Phosphatase Total Creatine Kinase CK-MB (CK-2) CK-MB (CK-2) Rel Index Troponin T C-Reactive Protein Total Protein Albumin Triglycerides Ur Specific [place] Urine WBC (Auto) Miscellaneous Test 04/16/17 04/17/17 04/17/17 17:03 00:00 05:09 WBC RBC Hgb Hct MCV MCH RDW Plt Count Lymph % (Auto) [place] % (Auto) Eos % (Auto) Baso % (Auto) Lymph # Baso # Seg Neutrophils % Lymphocytes % (Manual) Monocytes % (Manual) Nucleated RBC % Seg Neutrophils # Seg Neutrophils # Man Monocytes # (Manual) PT INR Activated Clotting Time POC ABG pH POC ABG pCO2 POC ABG pO2 Sodium Potassium Chloride Carbon Dioxide BUN Creatinine Glucose POC Glucose 151 H 165 H 145 H Calcium Magnesium Direct Bilirubin AST ALT Alkaline Phosphatase Total Creatine Kinase CK-MB (CK-2) CK-MB (CK-2) Rel Index Troponin T C-Reactive Protein Total Protein Albumin Triglycerides Ur Specific [place] Urine WBC (Auto) Miscellaneous Test 04/17/17 04/17/17 04/18/17 11:38 17:47 00:01 WBC RBC Hgb Hct MCV MCH RDW Plt Count Lymph % (Auto) [place] % (Auto) Eos % (Auto) Baso % (Auto) Lymph # Baso # Seg Neutrophils % Lymphocytes % (Manual) Monocytes % (Manual) Nucleated RBC % Seg Neutrophils # Seg Neutrophils # Man Monocytes # (Manual) PT INR Activated Clotting Time POC ABG pH POC ABG pCO2 POC ABG pO2 Sodium Potassium Chloride Carbon Dioxide BUN Creatinine Glucose POC Glucose 170 H 161 H 131 H Calcium Magnesium Direct Bilirubin AST ALT Alkaline Phosphatase Total Creatine Kinase CK-MB (CK-2) CK-MB (CK-2) Rel Index Troponin T C-Reactive Protein Total Protein Albumin Triglycerides Ur Specific [place] Urine WBC (Auto) Miscellaneous Test 04/18/17 04/18/17 04/18/17 03:55 03:55 05:30 WBC RBC 3.05 L Hgb 9.8 L Hct 29.0 L MCV 95 H MCH RDW Plt Count 113 L Lymph % (Auto) [place] % (Auto) Eos % (Auto) 5.3 H Baso % (Auto) Lymph # Baso # Seg Neutrophils % 71.5 H Lymphocytes % (Manual) Monocytes % (Manual) Nucleated RBC % Seg Neutrophils # Seg Neutrophils # Man Monocytes # (Manual) PT INR Activated Clotting Time POC ABG pH 7.460 H POC ABG pCO2 30.8 L POC ABG pO2 129 H Sodium Potassium Chloride Carbon Dioxide 21 L BUN 25 H Creatinine 0.4 L Glucose 123 H POC Glucose Calcium 8.3 L Magnesium Direct Bilirubin AST ALT Alkaline Phosphatase Total Creatine Kinase CK-MB (CK-2) CK-MB (CK-2) Rel Index Troponin T C-Reactive Protein Total Protein Albumin Triglycerides Ur Specific [place] Urine WBC (Auto) Miscellaneous Test 04/18/17 04/18/17 04/19/17 17:10 23:40 04:36 WBC RBC 3.21 L Hgb 10.2 L Hct 30.4 L MCV 95 H MCH RDW Plt Count 131 L Lymph % (Auto) 12.1 L [place] % (Auto) Eos % (Auto) 4.7 H Baso % (Auto) 2.4 H Lymph # 0.9 L Baso # 0.2 H Seg Neutrophils % 75.0 H Lymphocytes % (Manual) Monocytes % (Manual) Nucleated RBC % Seg Neutrophils # Seg Neutrophils # Man Monocytes # (Manual) PT INR Activated Clotting Time POC ABG pH POC ABG pCO2 POC ABG pO2 Sodium Potassium Chloride Carbon Dioxide BUN Creatinine Glucose POC Glucose 135 H 157 H Calcium Magnesium Direct Bilirubin AST ALT Alkaline Phosphatase Total Creatine Kinase CK-MB (CK-2) CK-MB (CK-2) Rel Index Troponin T C-Reactive Protein Total Protein Albumin Triglycerides Ur Specific [place] Urine WBC (Auto) Miscellaneous Test 04/19/17 04/19/17 04/19/17 04:36 05:12 06:50 WBC RBC Hgb Hct MCV MCH RDW Plt Count Lymph % (Auto) [place] % (Auto) Eos % (Auto) Baso % (Auto) Lymph # Baso # Seg Neutrophils % Lymphocytes % (Manual) Monocytes % (Manual) Nucleated RBC % Seg Neutrophils # Seg Neutrophils # Man Monocytes # (Manual) PT INR Activated Clotting Time POC ABG pH 7.516 H POC ABG pCO2 28.0 L POC ABG pO2 Sodium Potassium Chloride Carbon Dioxide 21 L BUN 23 H Creatinine 0.2 L Glucose 137 H POC Glucose 131 H Calcium 7.9 L Magnesium Direct Bilirubin AST ALT Alkaline Phosphatase Total Creatine Kinase CK-MB (CK-2) CK-MB (CK-2) Rel Index Troponin T C-Reactive Protein Total Protein Albumin Triglycerides Ur Specific [place] Urine WBC (Auto) Miscellaneous Test 04/19/17 04/19/17 04/20/17 12:36 17:42 00:12 WBC RBC Hgb Hct MCV MCH RDW Plt Count Lymph % (Auto) [place] % (Auto) Eos % (Auto) Baso % (Auto) Lymph # Baso # Seg Neutrophils % Lymphocytes % (Manual) Monocytes % (Manual) Nucleated RBC % Seg Neutrophils # Seg Neutrophils # Man Monocytes # (Manual) PT INR Activated Clotting Time POC ABG pH POC ABG pCO2 POC ABG pO2 Sodium Potassium Chloride Carbon Dioxide BUN Creatinine Glucose POC Glucose 128 H 140 H 132 H Calcium Magnesium Direct Bilirubin AST ALT Alkaline Phosphatase Total Creatine Kinase CK-MB (CK-2) CK-MB (CK-2) Rel Index Troponin T C-Reactive Protein Total Protein Albumin Triglycerides Ur Specific [place] Urine WBC (Auto) Miscellaneous Test 04/20/17 04/20/17 04/20/17 03:35 03:35 05:10 WBC RBC 3.34 L Hgb 10.4 L Hct 31.6 L MCV 95 H MCH RDW Plt Count Lymph % (Auto) 12.9 L [place] % (Auto) Eos % (Auto) Baso % (Auto) Lymph # Baso # Seg Neutrophils % 77.3 H Lymphocytes % (Manual) Monocytes % (Manual) Nucleated RBC % Seg Neutrophils # Seg Neutrophils # Man Monocytes # (Manual) PT INR Activated Clotting Time POC ABG pH POC ABG pCO2 POC ABG pO2 Sodium Potassium Chloride Carbon Dioxide BUN Creatinine 0.3 L Glucose 155 H POC Glucose 135 H Calcium 7.8 L Magnesium Direct Bilirubin AST ALT Alkaline Phosphatase Total Creatine Kinase CK-MB (CK-2) CK-MB (CK-2) Rel Index Troponin T C-Reactive Protein Total Protein Albumin Triglycerides Ur Specific [place] Urine WBC (Auto) Miscellaneous Test 04/20/17 04/20/17 04/21/17 12:49 18:21 00:05 WBC RBC Hgb Hct MCV MCH RDW Plt Count Lymph % (Auto) [place] % (Auto) Eos % (Auto) Baso % (Auto) Lymph # Baso # Seg Neutrophils % Lymphocytes % (Manual) Monocytes % (Manual) Nucleated RBC % Seg Neutrophils # Seg Neutrophils # Man Monocytes # (Manual) PT INR Activated Clotting Time POC ABG pH POC ABG pCO2 POC ABG pO2 Sodium Potassium Chloride Carbon Dioxide BUN Creatinine Glucose POC Glucose 155 H 165 H 141 H Calcium Magnesium Direct Bilirubin AST ALT Alkaline Phosphatase Total Creatine Kinase CK-MB (CK-2) CK-MB (CK-2) Rel Index Troponin T C-Reactive Protein Total Protein Albumin Triglycerides Ur Specific [place] Urine WBC (Auto) Miscellaneous Test 04/21/17 04/21/17 04/21/17 06:00 12:11 17:04 WBC RBC Hgb Hct MCV MCH RDW Plt Count Lymph % (Auto) [place] % (Auto) Eos % (Auto) Baso % (Auto) Lymph # Baso # Seg Neutrophils % Lymphocytes % (Manual) Monocytes % (Manual) Nucleated RBC % Seg Neutrophils # Seg Neutrophils # Man Monocytes # (Manual) PT INR Activated Clotting Time POC ABG pH POC ABG pCO2 POC ABG pO2 Sodium Potassium Chloride Carbon Dioxide BUN Creatinine Glucose POC Glucose 152 H 165 H 156 H Calcium Magnesium Direct Bilirubin AST ALT Alkaline Phosphatase Total Creatine Kinase CK-MB (CK-2) CK-MB (CK-2) Rel Index Troponin T C-Reactive Protein Total Protein Albumin Triglycerides Ur Specific [place] Urine WBC (Auto) Miscellaneous Test 04/21/17 04/21/17 04/22/17 22:00 23:59 05:49 WBC RBC Hgb Hct MCV MCH RDW Plt Count Lymph % (Auto) [place] % (Auto) Eos % (Auto) Baso % (Auto) Lymph # Baso # Seg Neutrophils % Lymphocytes % (Manual) Monocytes % (Manual) Nucleated RBC % Seg Neutrophils # Seg Neutrophils # Man Monocytes # (Manual) PT INR Activated Clotting Time POC ABG pH POC ABG pCO2 POC ABG pO2 Sodium Potassium Chloride Carbon Dioxide BUN Creatinine Glucose POC Glucose 166 H 173 H Calcium Magnesium Direct Bilirubin AST ALT Alkaline Phosphatase Total Creatine Kinase CK-MB (CK-2) CK-MB (CK-2) Rel Index Troponin T C-Reactive Protein Total Protein Albumin Triglycerides Ur Specific [place] Urine WBC (Auto) 10.0 H Miscellaneous Test 04/22/17 04/22/17 04/23/17 11:11 18:04 00:37 WBC RBC Hgb Hct MCV MCH RDW Plt Count Lymph % (Auto) [place] % (Auto) Eos % (Auto) Baso % (Auto) Lymph # Baso # Seg Neutrophils % Lymphocytes % (Manual) Monocytes % (Manual) Nucleated RBC % Seg Neutrophils # Seg Neutrophils # Man Monocytes # (Manual) PT INR Activated Clotting Time POC ABG pH POC ABG pCO2 POC ABG pO2 Sodium Potassium Chloride Carbon Dioxide BUN Creatinine Glucose POC Glucose 172 H 140 H 135 H Calcium Magnesium Direct Bilirubin AST ALT Alkaline Phosphatase Total Creatine Kinase CK-MB (CK-2) CK-MB (CK-2) Rel Index Troponin T C-Reactive Protein Total Protein Albumin Triglycerides Ur Specific [place] Urine WBC (Auto) Miscellaneous Test 04/23/17 04/23/17 04/23/17 05:33 06:20 11:10 WBC RBC 3.19 L Hgb 9.9 L Hct 30.0 L MCV MCH RDW Plt Count Lymph % (Auto) 8.0 L [place] % (Auto) Eos % (Auto) Baso % (Auto) Lymph # 0.8 L Baso # Seg Neutrophils % 84.5 H Lymphocytes % (Manual) Monocytes % (Manual) Nucleated RBC % Seg Neutrophils # 8.2 H Seg Neutrophils # Man Monocytes # (Manual) PT INR Activated Clotting Time POC ABG pH POC ABG pCO2 POC ABG pO2 Sodium Potassium Chloride Carbon Dioxide BUN Creatinine Glucose POC Glucose 134 H 134 H Calcium Magnesium Direct Bilirubin AST ALT Alkaline Phosphatase Total Creatine Kinase CK-MB (CK-2) CK-MB (CK-2) Rel Index Troponin T C-Reactive Protein Total Protein Albumin Triglycerides Ur Specific [place] Urine WBC (Auto) Miscellaneous Test 04/23/17 04/24/17 04/24/17 17:26 00:53 06:46 WBC RBC Hgb Hct MCV MCH RDW Plt Count Lymph % (Auto) [place] % (Auto) Eos % (Auto) Baso % (Auto) Lymph # Baso # Seg Neutrophils % Lymphocytes % (Manual) Monocytes % (Manual) Nucleated RBC % Seg Neutrophils # Seg Neutrophils # Man Monocytes # (Manual) PT INR Activated Clotting Time POC ABG pH POC ABG pCO2 POC ABG pO2 Sodium Potassium Chloride Carbon Dioxide BUN Creatinine Glucose POC Glucose 164 H 146 H 125 H Calcium Magnesium Direct Bilirubin AST ALT Alkaline Phosphatase Total Creatine Kinase CK-MB (CK-2) CK-MB (CK-2) Rel Index Troponin T C-Reactive Protein Total Protein Albumin Triglycerides Ur Specific [place] Urine WBC (Auto) Miscellaneous Test 04/24/17 04/24/17 04/24/17 11:55 17:50 23:36 WBC RBC Hgb Hct MCV MCH RDW Plt Count Lymph % (Auto) [place] % (Auto) Eos % (Auto) Baso % (Auto) Lymph # Baso # Seg Neutrophils % Lymphocytes % (Manual) Monocytes % (Manual) Nucleated RBC % Seg Neutrophils # Seg Neutrophils # Man Monocytes # (Manual) PT INR Activated Clotting Time POC ABG pH POC ABG pCO2 POC ABG pO2 Sodium Potassium Chloride Carbon Dioxide BUN Creatinine Glucose POC Glucose 156 H 146 H 131 H Calcium Magnesium Direct Bilirubin AST ALT Alkaline Phosphatase Total Creatine Kinase CK-MB (CK-2) CK-MB (CK-2) Rel Index Troponin T C-Reactive Protein Total Protein Albumin Triglycerides Ur Specific [place] Urine WBC (Auto) Miscellaneous Test 04/25/17 04/25/17 04/25/17 04:51 05:16 07:07 WBC RBC Hgb Hct MCV MCH RDW Plt Count Lymph % (Auto) [place] % (Auto) Eos % (Auto) Baso % (Auto) Lymph # Baso # Seg Neutrophils % Lymphocytes % (Manual) Monocytes % (Manual) Nucleated RBC % Seg Neutrophils # Seg Neutrophils # Man Monocytes # (Manual) PT INR Activated Clotting Time POC ABG pH POC ABG pCO2 POC ABG pO2 Sodium Potassium Chloride Carbon Dioxide BUN Creatinine Glucose POC Glucose 139 H Calcium Magnesium Direct Bilirubin AST 105 H ALT 204 H Alkaline Phosphatase 189 H Total Creatine Kinase CK-MB (CK-2) CK-MB (CK-2) Rel Index Troponin T C-Reactive Protein Total Protein Albumin 2.4 L Triglycerides Ur Specific [place] Urine WBC (Auto) Miscellaneous Test Flexitest 1 H 04/25/17 04/25/17 04/25/17 12:29 17:23 23:32 WBC RBC Hgb Hct MCV MCH RDW Plt Count Lymph % (Auto) [place] % (Auto) Eos % (Auto) Baso % (Auto) Lymph # Baso # Seg Neutrophils % Lymphocytes % (Manual) Monocytes % (Manual) Nucleated RBC % Seg Neutrophils # Seg Neutrophils # Man Monocytes # (Manual) PT INR Activated Clotting Time POC ABG pH POC ABG pCO2 POC ABG pO2 Sodium Potassium Chloride Carbon Dioxide BUN Creatinine Glucose POC Glucose 132 H 133 H 128 H Calcium Magnesium Direct Bilirubin AST ALT Alkaline Phosphatase Total Creatine Kinase CK-MB (CK-2) CK-MB (CK-2) Rel Index Troponin T C-Reactive Protein Total Protein Albumin Triglycerides Ur Specific [place] Urine WBC (Auto) Miscellaneous Test 04/26/17 04/26/17 04/26/17 05:24 11:28 17:09 WBC RBC Hgb Hct MCV MCH RDW Plt Count Lymph % (Auto) [place] % (Auto) Eos % (Auto) Baso % (Auto) Lymph # Baso # Seg Neutrophils % Lymphocytes % (Manual) Monocytes % (Manual) Nucleated RBC % Seg Neutrophils # Seg Neutrophils # Man Monocytes # (Manual) PT INR Activated Clotting Time POC ABG pH POC ABG pCO2 POC ABG pO2 Sodium Potassium Chloride Carbon Dioxide BUN Creatinine Glucose POC Glucose 132 H 146 H 141 H Calcium Magnesium Direct Bilirubin AST ALT Alkaline Phosphatase Total Creatine Kinase CK-MB (CK-2) CK-MB (CK-2) Rel Index Troponin T C-Reactive Protein Total Protein Albumin Triglycerides Ur Specific [place] Urine WBC (Auto) Miscellaneous Test 04/26/17 04/27/17 04/27/17 23:52 05:40 05:40 WBC RBC 3.22 L Hgb 10.0 L Hct 29.9 L MCV MCH RDW Plt Count Lymph % (Auto) [place] % (Auto) Eos % (Auto) Baso % (Auto) Lymph # Baso # Seg Neutrophils % 76.6 H Lymphocytes % (Manual) Monocytes % (Manual) Nucleated RBC % Seg Neutrophils # Seg Neutrophils # Man Monocytes # (Manual) PT INR Activated Clotting Time POC ABG pH POC ABG pCO2 POC ABG pO2 Sodium Potassium Chloride Carbon Dioxide BUN Creatinine Glucose POC Glucose 140 H Calcium Magnesium Direct Bilirubin AST 66 H ALT 137 H Alkaline Phosphatase 169 H Total Creatine Kinase CK-MB (CK-2) CK-MB (CK-2) Rel Index Troponin T C-Reactive Protein Total Protein 6.2 L Albumin 2.6 L Triglycerides Ur Specific [place] Urine WBC (Auto) Miscellaneous Test 04/27/17 04/27/17 04/27/17 05:40 06:10 11:13 WBC RBC Hgb Hct MCV MCH RDW Plt Count Lymph % (Auto) [place] % (Auto) Eos % (Auto) Baso % (Auto) Lymph # Baso # Seg Neutrophils % Lymphocytes % (Manual) Monocytes % (Manual) Nucleated RBC % Seg Neutrophils # Seg Neutrophils # Man Monocytes # (Manual) PT INR Activated Clotting Time POC ABG pH POC ABG pCO2 POC ABG pO2 Sodium Potassium Chloride Carbon Dioxide BUN Creatinine 0.2 L Glucose 139 H POC Glucose 130 H 151 H Calcium Magnesium Direct Bilirubin AST ALT Alkaline Phosphatase Total Creatine Kinase CK-MB (CK-2) CK-MB (CK-2) Rel Index Troponin T C-Reactive Protein Total Protein Albumin Triglycerides Ur Specific [place] Urine WBC (Auto) Miscellaneous Test 04/27/17 04/27/17 04/28/17 17:37 23:19 05:24 WBC RBC Hgb Hct MCV MCH RDW Plt Count Lymph % (Auto) [place] % (Auto) Eos % (Auto) Baso % (Auto) Lymph # Baso # Seg Neutrophils % Lymphocytes % (Manual) Monocytes % (Manual) Nucleated RBC % Seg Neutrophils # Seg Neutrophils # Man Monocytes # (Manual) PT INR Activated Clotting Time POC ABG pH POC ABG pCO2 POC ABG pO2 Sodium Potassium Chloride Carbon Dioxide BUN Creatinine Glucose POC Glucose 159 H 130 H 132 H Calcium Magnesium Direct Bilirubin AST ALT Alkaline Phosphatase Total Creatine Kinase CK-MB (CK-2) CK-MB (CK-2) Rel Index Troponin T C-Reactive Protein Total Protein Albumin Triglycerides Ur Specific [place] Urine WBC (Auto) Miscellaneous Test 04/28/17 04/28/17 04/28/17 11:15 17:38 23:23 WBC RBC Hgb Hct MCV MCH RDW Plt Count Lymph % (Auto) [place] % (Auto) Eos % (Auto) Baso % (Auto) Lymph # Baso # Seg Neutrophils % Lymphocytes % (Manual) Monocytes % (Manual) Nucleated RBC % Seg Neutrophils # Seg Neutrophils # Man Monocytes # (Manual) PT INR Activated Clotting Time POC ABG pH POC ABG pCO2 POC ABG pO2 Sodium Potassium Chloride Carbon Dioxide BUN Creatinine Glucose POC Glucose 162 H 133 H 138 H Calcium Magnesium Direct Bilirubin AST ALT Alkaline Phosphatase Total Creatine Kinase CK-MB (CK-2) CK-MB (CK-2) Rel Index Troponin T C-Reactive Protein Total Protein Albumin Triglycerides Ur Specific [place] Urine WBC (Auto) Miscellaneous Test 04/29/17 04/29/17 04/29/17 05:15 12:55 17:21 WBC RBC Hgb Hct MCV MCH RDW Plt Count Lymph % (Auto) [place] % (Auto) Eos % (Auto) Baso % (Auto) Lymph # Baso # Seg Neutrophils % Lymphocytes % (Manual) Monocytes % (Manual) Nucleated RBC % Seg Neutrophils # Seg Neutrophils # Man Monocytes # (Manual) PT INR Activated Clotting Time POC ABG pH POC ABG pCO2 POC ABG pO2 Sodium Potassium Chloride Carbon Dioxide BUN Creatinine Glucose POC Glucose 135 H 127 H 138 H Calcium Magnesium Direct Bilirubin AST ALT Alkaline Phosphatase Total Creatine Kinase CK-MB (CK-2) CK-MB (CK-2) Rel Index Troponin T C-Reactive Protein Total Protein Albumin Triglycerides Ur Specific [place] Urine WBC (Auto) Miscellaneous Test 04/29/17 04/30/17 04/30/17 23:52 04:55 12:22 WBC RBC Hgb Hct MCV MCH RDW Plt Count Lymph % (Auto) [place] % (Auto) Eos % (Auto) Baso % (Auto) Lymph # Baso # Seg Neutrophils % Lymphocytes % (Manual) Monocytes % (Manual) Nucleated RBC % Seg Neutrophils # Seg Neutrophils # Man Monocytes # (Manual) PT INR Activated Clotting Time POC ABG pH POC ABG pCO2 POC ABG pO2 Sodium Potassium Chloride Carbon Dioxide BUN Creatinine Glucose POC Glucose 142 H 146 H 132 H Calcium Magnesium Direct Bilirubin AST ALT Alkaline Phosphatase Total Creatine Kinase CK-MB (CK-2) CK-MB (CK-2) Rel Index Troponin T C-Reactive Protein Total Protein Albumin Triglycerides Ur Specific [place] Urine WBC (Auto) Miscellaneous Test 04/30/17 04/30/17 04/30/17 14:25 17:47 18:20 WBC RBC Hgb Hct MCV MCH RDW Plt Count Lymph % (Auto) [place] % (Auto) Eos % (Auto) Baso % (Auto) Lymph # Baso # Seg Neutrophils % Lymphocytes % (Manual) Monocytes % (Manual) Nucleated RBC % Seg Neutrophils # Seg Neutrophils # Man Monocytes # (Manual) PT INR Activated Clotting Time POC ABG pH 7.551 H POC ABG pCO2 32.7 L POC ABG pO2 Sodium Potassium Chloride Carbon Dioxide BUN 21 H Creatinine 0.2 L Glucose 141 H POC Glucose 139 H Calcium Magnesium Direct Bilirubin AST ALT Alkaline Phosphatase Total Creatine Kinase CK-MB (CK-2) CK-MB (CK-2) Rel Index Troponin T C-Reactive Protein Total Protein Albumin Triglycerides Ur Specific [place] Urine WBC (Auto) Miscellaneous Test 05/01/17 05/01/17 05/01/17 01:26 05:30 05:30 WBC RBC 3.49 L Hgb 10.3 L Hct 31.9 L MCV MCH RDW Plt Count Lymph % (Auto) [place] % (Auto) 8.1 H Eos % (Auto) Baso % (Auto) Lymph # Baso # Seg Neutrophils % 71.3 H Lymphocytes % (Manual) Monocytes % (Manual) Nucleated RBC % Seg Neutrophils # Seg Neutrophils # Man Monocytes # (Manual) PT INR Activated Clotting Time POC ABG pH POC ABG pCO2 POC ABG pO2 Sodium 136 L Potassium Chloride 97.6 L Carbon Dioxide BUN Creatinine 0.2 L Glucose 123 H POC Glucose 116 H Calcium Magnesium Direct Bilirubin AST 71 H ALT 125 H Alkaline Phosphatase 158 H Total Creatine Kinase CK-MB (CK-2) CK-MB (CK-2) Rel Index Troponin T C-Reactive Protein Total Protein Albumin 2.6 L Triglycerides Ur Specific [place] Urine WBC (Auto) Miscellaneous Test 05/01/17 05/01/17 05/02/17 11:59 17:23 00:08 WBC RBC Hgb Hct MCV MCH RDW Plt Count Lymph % (Auto) [place] % (Auto) Eos % (Auto) Baso % (Auto) Lymph # Baso # Seg Neutrophils % Lymphocytes % (Manual) Monocytes % (Manual) Nucleated RBC % Seg Neutrophils # Seg Neutrophils # Man Monocytes # (Manual) PT INR Activated Clotting Time POC ABG pH POC ABG pCO2 POC ABG pO2 Sodium Potassium Chloride Carbon Dioxide BUN Creatinine Glucose POC Glucose 118 H 144 H 122 H Calcium Magnesium Direct Bilirubin AST ALT Alkaline Phosphatase Total Creatine Kinase CK-MB (CK-2) CK-MB (CK-2) Rel Index Troponin T C-Reactive Protein Total Protein Albumin Triglycerides Ur Specific [place] Urine WBC (Auto) Miscellaneous Test 05/02/17 05/02/17 05/02/17 05:50 11:21 17:48 WBC RBC Hgb Hct MCV MCH RDW Plt Count Lymph % (Auto) [place] % (Auto) Eos % (Auto) Baso % (Auto) Lymph # Baso # Seg Neutrophils % Lymphocytes % (Manual) Monocytes % (Manual) Nucleated RBC % Seg Neutrophils # Seg Neutrophils # Man Monocytes # (Manual) PT INR Activated Clotting Time POC ABG pH POC ABG pCO2 POC ABG pO2 Sodium Potassium Chloride Carbon Dioxide BUN Creatinine Glucose POC Glucose 120 H 121 H 140 H Calcium Magnesium Direct Bilirubin AST ALT Alkaline Phosphatase Total Creatine Kinase CK-MB (CK-2) CK-MB (CK-2) Rel Index Troponin T C-Reactive Protein Total Protein Albumin Triglycerides Ur Specific [place] Urine WBC (Auto) Miscellaneous Test 05/02/17 05/03/17 05/03/17 23:12 05:35 11:52 WBC RBC Hgb Hct MCV MCH RDW Plt Count Lymph % (Auto) [place] % (Auto) Eos % (Auto) Baso % (Auto) Lymph # Baso # Seg Neutrophils % Lymphocytes % (Manual) Monocytes % (Manual) Nucleated RBC % Seg Neutrophils # Seg Neutrophils # Man Monocytes # (Manual) PT INR Activated Clotting Time POC ABG pH POC ABG pCO2 POC ABG pO2 Sodium Potassium Chloride Carbon Dioxide BUN Creatinine Glucose POC Glucose 128 H 113 H 126 H Calcium Magnesium Direct Bilirubin AST ALT Alkaline Phosphatase Total Creatine Kinase CK-MB (CK-2) CK-MB (CK-2) Rel Index Troponin T C-Reactive Protein Total Protein Albumin Triglycerides Ur Specific [place] Urine WBC (Auto) Miscellaneous Test 05/03/17 05/03/17 05/04/17 17:29 23:26 04:55 WBC RBC Hgb Hct MCV MCH RDW Plt Count Lymph % (Auto) [place] % (Auto) Eos % (Auto) Baso % (Auto) Lymph # Baso # Seg Neutrophils % Lymphocytes % (Manual) Monocytes % (Manual) Nucleated RBC % Seg Neutrophils # Seg Neutrophils # Man Monocytes # (Manual) PT INR Activated Clotting Time POC ABG pH POC ABG pCO2 POC ABG pO2 Sodium Potassium Chloride Carbon Dioxide BUN Creatinine Glucose POC Glucose 141 H 129 H 126 H Calcium Magnesium Direct Bilirubin AST ALT Alkaline Phosphatase Total Creatine Kinase CK-MB (CK-2) CK-MB (CK-2) Rel Index Troponin T C-Reactive Protein Total Protein Albumin Triglycerides Ur Specific [place] Urine WBC (Auto) Miscellaneous Test 05/04/17 05/04/17 05/05/17 12:09 17:46 00:06 WBC RBC Hgb Hct MCV MCH RDW Plt Count Lymph % (Auto) [place] % (Auto) Eos % (Auto) Baso % (Auto) Lymph # Baso # Seg Neutrophils % Lymphocytes % (Manual) Monocytes % (Manual) Nucleated RBC % Seg Neutrophils # Seg Neutrophils # Man Monocytes # (Manual) PT INR Activated Clotting Time POC ABG pH POC ABG pCO2 POC ABG pO2 Sodium Potassium Chloride Carbon Dioxide BUN Creatinine Glucose POC Glucose 125 H 125 H 110 H Calcium Magnesium Direct Bilirubin AST ALT Alkaline Phosphatase Total Creatine Kinase CK-MB (CK-2) CK-MB (CK-2) Rel Index Troponin T C-Reactive Protein Total Protein Albumin Triglycerides Ur Specific [place] Urine WBC (Auto) Miscellaneous Test 05/05/17 05/05/17 05/05/17 05:48 11:41 16:19 WBC RBC Hgb Hct MCV MCH RDW Plt Count Lymph % (Auto) [place] % (Auto) Eos % (Auto) Baso % (Auto) Lymph # Baso # Seg Neutrophils % Lymphocytes % (Manual) Monocytes % (Manual) Nucleated RBC % Seg Neutrophils # Seg Neutrophils # Man Monocytes # (Manual) PT INR Activated Clotting Time POC ABG pH POC ABG pCO2 POC ABG pO2 Sodium Potassium Chloride Carbon Dioxide BUN Creatinine Glucose POC Glucose 124 H 122 H 120 H Calcium Magnesium Direct Bilirubin AST ALT Alkaline Phosphatase Total Creatine Kinase CK-MB (CK-2) CK-MB (CK-2) Rel Index Troponin T C-Reactive Protein Total Protein Albumin Triglycerides Ur Specific [place] Urine WBC (Auto) Miscellaneous Test 05/06/17 05/06/17 05/06/17 00:16 05:47 11:42 WBC RBC Hgb Hct MCV MCH RDW Plt Count Lymph % (Auto) [place] % (Auto) Eos % (Auto) Baso % (Auto) Lymph # Baso # Seg Neutrophils % Lymphocytes % (Manual) Monocytes % (Manual) Nucleated RBC % Seg Neutrophils # Seg Neutrophils # Man Monocytes # (Manual) PT INR Activated Clotting Time POC ABG pH POC ABG pCO2 POC ABG pO2 Sodium Potassium Chloride Carbon Dioxide BUN Creatinine Glucose POC Glucose 110 H 142 H 120 H Calcium Magnesium Direct Bilirubin AST ALT Alkaline Phosphatase Total Creatine Kinase CK-MB (CK-2) CK-MB (CK-2) Rel Index Troponin T C-Reactive Protein Total Protein Albumin Triglycerides Ur Specific [place] Urine WBC (Auto) Miscellaneous Test 05/06/17 05/07/17 05/07/17 17:46 00:07 05:28 WBC RBC Hgb Hct MCV MCH RDW Plt Count Lymph % (Auto) [place] % (Auto) Eos % (Auto) Baso % (Auto) Lymph # Baso # Seg Neutrophils % Lymphocytes % (Manual) Monocytes % (Manual) Nucleated RBC % Seg Neutrophils # Seg Neutrophils # Man Monocytes # (Manual) PT INR Activated Clotting Time POC ABG pH POC ABG pCO2 POC ABG pO2 Sodium Potassium Chloride Carbon Dioxide BUN Creatinine Glucose POC Glucose 127 H 145 H 124 H Calcium Magnesium Direct Bilirubin AST ALT Alkaline Phosphatase Total Creatine Kinase CK-MB (CK-2) CK-MB (CK-2) Rel Index Troponin T C-Reactive Protein Total Protein Albumin Triglycerides Ur Specific [place] Urine WBC (Auto) Miscellaneous Test 05/07/17 05/07/17 05/08/17 11:17 17:14 00:03 WBC RBC Hgb Hct MCV MCH RDW Plt Count Lymph % (Auto) [place] % (Auto) Eos % (Auto) Baso % (Auto) Lymph # Baso # Seg Neutrophils % Lymphocytes % (Manual) Monocytes % (Manual) Nucleated RBC % Seg Neutrophils # Seg Neutrophils # Man Monocytes # (Manual) PT INR Activated Clotting Time POC ABG pH POC ABG pCO2 POC ABG pO2 Sodium Potassium Chloride Carbon Dioxide BUN Creatinine Glucose POC Glucose 144 H 125 H 122 H Calcium Magnesium Direct Bilirubin AST ALT Alkaline Phosphatase Total Creatine Kinase CK-MB (CK-2) CK-MB (CK-2) Rel Index Troponin T C-Reactive Protein Total Protein Albumin Triglycerides Ur Specific [place] Urine WBC (Auto) Miscellaneous Test 05/08/17 05/08/17 05/08/17 05:43 12:07 18:02 WBC RBC Hgb Hct MCV MCH RDW Plt Count Lymph % (Auto) [place] % (Auto) Eos % (Auto) Baso % (Auto) Lymph # Baso # Seg Neutrophils % Lymphocytes % (Manual) Monocytes % (Manual) Nucleated RBC % Seg Neutrophils # Seg Neutrophils # Man Monocytes # (Manual) PT INR Activated Clotting Time POC ABG pH POC ABG pCO2 POC ABG pO2 Sodium Potassium Chloride Carbon Dioxide BUN Creatinine Glucose POC Glucose 117 H 114 H 129 H Calcium Magnesium Direct Bilirubin AST ALT Alkaline Phosphatase Total Creatine Kinase CK-MB (CK-2) CK-MB (CK-2) Rel Index Troponin T C-Reactive Protein Total Protein Albumin Triglycerides Ur Specific [place] Urine WBC (Auto) Miscellaneous Test 05/08/17 05/09/17 05/09/17 23:53 04:19 05:14 WBC RBC Hgb Hct MCV MCH RDW Plt Count Lymph % (Auto) [place] % (Auto) Eos % (Auto) Baso % (Auto) Lymph # Baso # Seg Neutrophils % Lymphocytes % (Manual) Monocytes % (Manual) Nucleated RBC % Seg Neutrophils # Seg Neutrophils # Man Monocytes # (Manual) PT INR Activated Clotting Time POC ABG pH 7.524 H POC ABG pCO2 34.7 L POC ABG pO2 107 H Sodium Potassium Chloride Carbon Dioxide BUN Creatinine Glucose POC Glucose 125 H 118 H Calcium Magnesium Direct Bilirubin AST ALT Alkaline Phosphatase Total Creatine Kinase CK-MB (CK-2) CK-MB (CK-2) Rel Index Troponin T C-Reactive Protein Total Protein Albumin Triglycerides Ur Specific [place] Urine WBC (Auto) Miscellaneous Test 05/10/17 05/11/17 05/11/17 23:54 05:48 23:50 WBC RBC Hgb Hct MCV MCH RDW Plt Count Lymph % (Auto) [place] % (Auto) Eos % (Auto) Baso % (Auto) Lymph # Baso # Seg Neutrophils % Lymphocytes % (Manual) Monocytes % (Manual) Nucleated RBC % Seg Neutrophils # Seg Neutrophils # Man Monocytes # (Manual) PT INR Activated Clotting Time POC ABG pH POC ABG pCO2 POC ABG pO2 Sodium Potassium Chloride Carbon Dioxide BUN Creatinine Glucose POC Glucose 126 H 137 H 130 H Calcium Magnesium Direct Bilirubin AST ALT Alkaline Phosphatase Total Creatine Kinase CK-MB (CK-2) CK-MB (CK-2) Rel Index Troponin T C-Reactive Protein Total Protein Albumin Triglycerides Ur Specific [place] Urine WBC (Auto) Miscellaneous Test 05/12/17 05/12/17 05/12/17 05:48 11:33 18:00 WBC RBC Hgb Hct MCV MCH RDW Plt Count Lymph % (Auto) [place] % (Auto) Eos % (Auto) Baso % (Auto) Lymph # Baso # Seg Neutrophils % Lymphocytes % (Manual) Monocytes % (Manual) Nucleated RBC % Seg Neutrophils # Seg Neutrophils # Man Monocytes # (Manual) PT INR Activated Clotting Time POC ABG pH POC ABG pCO2 POC ABG pO2 Sodium Potassium Chloride Carbon Dioxide BUN Creatinine Glucose POC Glucose 126 H 116 H 131 H Calcium Magnesium Direct Bilirubin AST ALT Alkaline Phosphatase Total Creatine Kinase CK-MB (CK-2) CK-MB (CK-2) Rel Index Troponin T C-Reactive Protein Total Protein Albumin Triglycerides Ur Specific [place] Urine WBC (Auto) Miscellaneous Test 05/14/17 05/15/17 05/15/17 11:45 11:27 17:42 WBC RBC Hgb Hct MCV MCH RDW Plt Count Lymph % (Auto) [place] % (Auto) Eos % (Auto) Baso % (Auto) Lymph # Baso # Seg Neutrophils % Lymphocytes % (Manual) Monocytes % (Manual) Nucleated RBC % Seg Neutrophils # Seg Neutrophils # Man Monocytes # (Manual) PT INR Activated Clotting Time POC ABG pH POC ABG pCO2 POC ABG pO2 Sodium Potassium Chloride Carbon Dioxide BUN Creatinine Glucose POC Glucose 123 H 129 H 125 H Calcium Magnesium Direct Bilirubin AST ALT Alkaline Phosphatase Total Creatine Kinase CK-MB (CK-2) CK-MB (CK-2) Rel Index Troponin T C-Reactive Protein Total Protein Albumin Triglycerides Ur Specific [place] Urine WBC (Auto) Miscellaneous Test 05/16/17 05/16/17 05/17/17 00:29 06:50 03:45 WBC RBC Hgb 11.7 L Hct 34.8 L MCV MCH RDW 15.5 H Plt Count Lymph % (Auto) [place] % (Auto) 7.7 H Eos % (Auto) Baso % (Auto) Lymph # Baso # Seg Neutrophils % 73.7 H Lymphocytes % (Manual) Monocytes % (Manual) Nucleated RBC % Seg Neutrophils # Seg Neutrophils # Man Monocytes # (Manual) PT INR Activated Clotting Time POC ABG pH POC ABG pCO2 POC ABG pO2 Sodium Potassium Chloride Carbon Dioxide BUN Creatinine Glucose POC Glucose 141 H 138 H Calcium Magnesium Direct Bilirubin AST ALT Alkaline Phosphatase Total Creatine Kinase CK-MB (CK-2) CK-MB (CK-2) Rel Index Troponin T C-Reactive Protein Total Protein Albumin Triglycerides Ur Specific [place] Urine WBC (Auto) Miscellaneous Test 05/17/17 05/20/17 05/23/17 03:45 17:31 23:09 WBC RBC Hgb Hct MCV MCH RDW Plt Count Lymph % (Auto) [place] % (Auto) Eos % (Auto) Baso % (Auto) Lymph # Baso # Seg Neutrophils % Lymphocytes % (Manual) Monocytes % (Manual) Nucleated RBC % Seg Neutrophils # Seg Neutrophils # Man Monocytes # (Manual) PT INR Activated Clotting Time POC ABG pH POC ABG pCO2 POC ABG pO2 Sodium Potassium Chloride Carbon Dioxide BUN Creatinine 0.2 L Glucose 131 H POC Glucose 116 H 122 H Calcium Magnesium Direct Bilirubin AST ALT Alkaline Phosphatase Total Creatine Kinase CK-MB (CK-2) CK-MB (CK-2) Rel Index Troponin T C-Reactive Protein Total Protein Albumin Triglycerides Ur Specific [place] Urine WBC (Auto) Miscellaneous Test 05/24/17 05/26/17 05/27/17 05:37 05:23 01:16 WBC RBC Hgb Hct MCV MCH RDW Plt Count Lymph % (Auto) [place] % (Auto) Eos % (Auto) Baso % (Auto) Lymph # Baso # Seg Neutrophils % Lymphocytes % (Manual) Monocytes % (Manual) Nucleated RBC % Seg Neutrophils # Seg Neutrophils # Man Monocytes # (Manual) PT INR Activated Clotting Time POC ABG pH POC ABG pCO2 POC ABG pO2 Sodium Potassium Chloride Carbon Dioxide BUN Creatinine Glucose POC Glucose 139 H 108 H 126 H Calcium Magnesium Direct Bilirubin AST ALT Alkaline Phosphatase Total Creatine Kinase CK-MB (CK-2) CK-MB (CK-2) Rel Index Troponin T C-Reactive Protein Total Protein Albumin Triglycerides Ur Specific [place] Urine WBC (Auto) Miscellaneous Test 05/27/17 05/27/17 05:33 21:49 WBC RBC Hgb Hct MCV MCH RDW Plt Count Lymph % (Auto) [place] % (Auto) Eos % (Auto) Baso % (Auto) Lymph # Baso # Seg Neutrophils % Lymphocytes % (Manual) Monocytes % (Manual) Nucleated RBC % Seg Neutrophils # Seg Neutrophils # Man Monocytes # (Manual) PT INR Activated Clotting Time POC ABG pH POC ABG pCO2 POC ABG pO2 Sodium Potassium Chloride Carbon Dioxide BUN Creatinine Glucose POC Glucose 129 H 110 H Calcium Magnesium Direct Bilirubin AST ALT Alkaline Phosphatase Total Creatine Kinase CK-MB (CK-2) CK-MB (CK-2) Rel Index Troponin T C-Reactive Protein Total Protein Albumin Triglycerides Ur Specific [place] Urine WBC (Auto) Miscellaneous Test
[2017-05-28] MEDS: CORDARONE PO SCH ×2 (10:21→22:29)
[2017-05-28] MEDS: ASPIRIN PO SCH (10:21)
[2017-05-28] MEDS: PROTONIX FEEDTUBE SCH (10:22)
[2017-05-28] MEDS: PLAVIX PO SCH (10:22)
[2017-05-28] MEDS: ZESTRIL PO SCH (10:22)
[2017-05-28] MEDS: LOPRESSOR PO SCH ×2 (10:22→22:30)
[2017-05-28] MEDS: ELIQUIS PO SCH ×2 (10:46→22:29)
[2017-05-29 05:00] LABS: Hematocrit 40.6 % (35.5-45.6); Hemoglobin 13.6 gm/dl (11.8-15.2); Mean Corpuscular HGB Conc 33 % (32-34); Mean Corpuscular Hemoglobin 30 pg (28-32); Mean Corpuscular Volume 90 fl (84-94); Platelet Count 222 K/mm3 (140-440); Red Blood Count 4.52 M/mm3 (3.65-5.03); Red Cell Distribution Width 15.5 % (13.2-15.2)
[2017-05-29 05:17] LABS: BUN/Creatinine Ratio 70; Blood Urea Nitrogen 14 mg/dL (9-20); Calcium 9.5 mg/dL (8.4-10.2); Hemolysis Index 34
--- NOTE | 2017-05-29 08:51 | Progress Note ---
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 No new recommendations for today. Patient remains full code and will continue PSV as tolerated with hopes of weaning to T-piece 1. PSV as tolerated with a goal to get to T-piece 2. Once tolerates T-piece for 24 hours, can consider transfer to floor, this is highly unlikely. 3. reviewed neurology note and agree with assessment 4. Continue all other cardiac meds 5. Overall prognosis still remains poor given amount of downtime during arrest. 6. Family meeting held, they feel the patient will overcome this current state as they have had other family members do the same. Very in depth conversation about the prognosis and current clinical state. I've made my best attempt to help them understand. Neuro agrees. Will continue supportive measures and attempt to wean. CCT 31 minutes. Subjective Date of service: 05/29/17 Principal diagnosis: coma,ARV,s/p arrest Interval history: No acute events. Mental status is unchanged. Objective Vital Signs - 12hr 05/28/17 05/28/17 05/28/17 20:57 21:01 22:00 Temperature Pulse Rate 81 78 78 Pulse Rate [ From Monitor] Respiratory 17 21 Rate Blood Pressure 111/67 107/60 103/75 O2 Sat by Pulse 99 95 97 Oximetry O2 Sat by Pulse Oximetry [ Assessment] 05/28/17 05/28/17 05/29/17 22:30 23:00 00:00 Temperature 99 F Pulse Rate 77 78 Pulse Rate [ From Monitor] Respiratory 22 24 Rate Blood Pressure 103/75 101/69 O2 Sat by Pulse 96 96 Oximetry O2 Sat by Pulse Oximetry [ Assessment] 05/29/17 05/29/17 05/29/17 00:01 01:01 01:09 Temperature Pulse Rate 80 87 88 Pulse Rate [ From Monitor] Respiratory 18 27 H Rate Blood Pressure 102/58 98/71 98/71 O2 Sat by Pulse 96 96 97 Oximetry O2 Sat by Pulse 97 Oximetry [ Assessment] 05/29/17 05/29/17 05/29/17 02:00 03:00 03:56 Temperature 98.3 F Pulse Rate 87 81 Pulse Rate [ From Monitor] Respiratory 24 21 Rate Blood Pressure 110/71 113/75 O2 Sat by Pulse 96 97 Oximetry O2 Sat by Pulse Oximetry [ Assessment] 05/29/17 05/29/17 05/29/17 04:00 04:03 05:00 Temperature Pulse Rate 69 71 77 Pulse Rate [ 89 From Monitor] Respiratory 22 Rate Blood Pressure 106/73 106/73 104/77 O2 Sat by Pulse 96 98 97 Oximetry O2 Sat by Pulse Oximetry [ Assessment] Constitutional: no acute distress, comatose Eyes: non-icteric ENT: oropharynx moist Neck: supple, other (tracheotomy ) Effort: normal Ascultation: Bilateral: clear, diminished breath sounds, other (coarse BS bilaterally) Percussion: Bilateral: not dull Cardiovascular: regular rate and rhythm Gastrointestinal: normoactive bowel sounds, soft, non-tender, non-distended Integumentary: normal Extremities: no cyanosis, no edema, pink and warm Neurologic: other (nonresponsive with flaccid extremities) Psychiatric: other (eyes open spontaneously but does not follow any voice commands, otherwise nonresponsive except for pain) CBC and BMP: 05/29/17 04:37 05/29/17 04:37 ABG, PT/INR, D-dimer: ABG POC ABG pH 7.524 (7.35-7.45) H 05/09/17 04:19 POC ABG pCO2 34.7 (35-45) L 05/09/17 04:19 POC ABG pO2 107 (80-105) H 05/09/17 04:19 POC ABG HCO3 28.6 05/09/17 04:19 POC ABG Total CO2 30 05/09/17 04:19 POC ABG O2 Sat 99 05/09/17 04:19 PT/INR, D-dimer PT 14.9 Sec. (12.2-14.9) 04/10/17 04:16 INR 1.11 (0.87-1.13) 04/10/17 04:16 Abnormal lab findings: Abnormal Labs 03/29/17 03/29/17 03/29/17 11:35 11:35 11:40 WBC RBC Hgb Hct MCV 98 H MCH 33 H RDW Plt Count Lymph % (Auto) [place] % (Auto) Eos % (Auto) Baso % (Auto) Lymph # Baso # Seg Neutrophils % Lymphocytes % (Manual) Monocytes % (Manual) 9.0 H Nucleated RBC % 1.0 H Seg Neutrophils # Seg Neutrophils # Man Monocytes # (Manual) 0.9 H PT 15.8 H INR 1.20 H Activated Clotting Time POC ABG pH POC ABG pCO2 POC ABG pO2 Sodium Potassium 2.7 L* Chloride 95.3 L Carbon Dioxide 17 L BUN Creatinine Glucose 435 H POC Glucose Calcium Magnesium Direct Bilirubin AST ALT Alkaline Phosphatase Total Creatine Kinase CK-MB (CK-2) CK-MB (CK-2) Rel Index Troponin T C-Reactive Protein Total Protein 6.1 L Albumin 3.5 L Triglycerides Ur Specific [place] Urine WBC (Auto) Miscellaneous Test 03/29/17 03/29/17 03/29/17 12:34 13:10 13:25 WBC RBC Hgb Hct MCV MCH RDW Plt Count Lymph % (Auto) [place] % (Auto) Eos % (Auto) Baso % (Auto) Lymph # Baso # Seg Neutrophils % Lymphocytes % (Manual) Monocytes % (Manual) Nucleated RBC % Seg Neutrophils # Seg Neutrophils # Man Monocytes # (Manual) PT INR Activated Clotting Time 142 H 169 H 175 H POC ABG pH POC ABG pCO2 POC ABG pO2 Sodium Potassium Chloride Carbon Dioxide BUN Creatinine Glucose POC Glucose Calcium Magnesium Direct Bilirubin AST ALT Alkaline Phosphatase Total Creatine Kinase CK-MB (CK-2) CK-MB (CK-2) Rel Index Troponin T C-Reactive Protein Total Protein Albumin Triglycerides Ur Specific [place] Urine WBC (Auto) Miscellaneous Test 03/29/17 03/29/17 03/29/17 14:50 15:18 19:52 WBC RBC Hgb Hct MCV MCH RDW Plt Count Lymph % (Auto) [place] % (Auto) Eos % (Auto) Baso % (Auto) Lymph # Baso # Seg Neutrophils % Lymphocytes % (Manual) Monocytes % (Manual) Nucleated RBC % Seg Neutrophils # Seg Neutrophils # Man Monocytes # (Manual) PT INR Activated Clotting Time 175 H POC ABG pH 7.293 L POC ABG pCO2 POC ABG pO2 602 H Sodium Potassium Chloride Carbon Dioxide BUN Creatinine Glucose POC Glucose Calcium Magnesium Direct Bilirubin AST ALT Alkaline Phosphatase Total Creatine Kinase 7263 H CK-MB (CK-2) > 300.0 H CK-MB (CK-2) Rel Index 4.1 H Troponin T 8.080 H* D C-Reactive Protein Total Protein Albumin Triglycerides 195 H Ur Specific [place] Urine WBC (Auto) Miscellaneous Test 0103/30/17 03/30/17 03:50 03:50 06:19 WBC 19.5 H RBC Hgb Hct MCV MCH RDW Plt Count Lymph % (Auto) [place] % (Auto) Eos % (Auto) Baso % (Auto) Lymph # Baso # Seg Neutrophils % Lymphocytes % (Manual) 7.0 L Monocytes % (Manual) Nucleated RBC % Seg Neutrophils # Seg Neutrophils # Man 12.7 H Monocytes # (Manual) 1.4 H PT INR Activated Clotting Time POC ABG pH POC ABG pCO2 28.2 L POC ABG pO2 108 H Sodium Potassium Chloride 108.9 H Carbon Dioxide 15 L BUN 25 H Creatinine Glucose 158 H POC Glucose Calcium 8.1 L Magnesium Direct Bilirubin AST ALT Alkaline Phosphatase Total Creatine Kinase 7963 H CK-MB (CK-2) > 300.0 H CK-MB (CK-2) Rel Index Troponin T 6.850 H* C-Reactive Protein Total Protein Albumin Triglycerides Ur Specific [place] Urine WBC (Auto) Miscellaneous Test 03/30/17 03/30/17 03/31/17 09:45 16:04 02:19 WBC RBC Hgb Hct MCV MCH RDW Plt Count Lymph % (Auto) [place] % (Auto) Eos % (Auto) Baso % (Auto) Lymph # Baso # Seg Neutrophils % Lymphocytes % (Manual) Monocytes % (Manual) Nucleated RBC % Seg Neutrophils # Seg Neutrophils # Man Monocytes # (Manual) PT INR Activated Clotting Time POC ABG pH POC ABG pCO2 POC ABG pO2 Sodium Potassium Chloride Carbon Dioxide BUN Creatinine Glucose POC Glucose 137 H Calcium Magnesium Direct Bilirubin AST ALT Alkaline Phosphatase Total Creatine Kinase CK-MB (CK-2) CK-MB (CK-2) Rel Index Troponin T C-Reactive Protein 21.80 H Total Protein Albumin Triglycerides Ur Specific [place] 1.031 H Urine WBC (Auto) Miscellaneous Test 03/31/17 03/31/17 03/31/17 03:57 06:54 09:22 WBC RBC Hgb Hct MCV MCH RDW Plt Count Lymph % (Auto) [place] % (Auto) Eos % (Auto) Baso % (Auto) Lymph # Baso # Seg Neutrophils % Lymphocytes % (Manual) Monocytes % (Manual) Nucleated RBC % Seg Neutrophils # Seg Neutrophils # Man Monocytes # (Manual) PT INR Activated Clotting Time POC ABG pH 7.475 H POC ABG pCO2 25.4 L POC ABG pO2 62 L Sodium Potassium Chloride Carbon Dioxide 19 L BUN 22 H Creatinine 0.6 L Glucose 148 H POC Glucose 143 H Calcium 8.3 L Magnesium Direct Bilirubin AST ALT Alkaline Phosphatase Total Creatine Kinase CK-MB (CK-2) CK-MB (CK-2) Rel Index Troponin T C-Reactive Protein Total Protein Albumin Triglycerides Ur Specific [place] Urine WBC (Auto) Miscellaneous Test 03/31/17 03/31/17 03/31/17 11:40 17:47 23:38 WBC RBC Hgb Hct MCV MCH RDW Plt Count Lymph % (Auto) [place] % (Auto) Eos % (Auto) Baso % (Auto) Lymph # Baso # Seg Neutrophils % Lymphocytes % (Manual) Monocytes % (Manual) Nucleated RBC % Seg Neutrophils # Seg Neutrophils # Man Monocytes # (Manual) PT INR Activated Clotting Time POC ABG pH POC ABG pCO2 POC ABG pO2 Sodium Potassium Chloride Carbon Dioxide BUN Creatinine Glucose POC Glucose 127 H 137 H 148 H Calcium Magnesium Direct Bilirubin AST ALT Alkaline Phosphatase Total Creatine Kinase CK-MB (CK-2) CK-MB (CK-2) Rel Index Troponin T C-Reactive Protein Total Protein Albumin Triglycerides Ur Specific [place] Urine WBC (Auto) Miscellaneous Test 04/01/17 04/01/17 04/01/17 04:29 05:01 11:54 WBC RBC Hgb Hct MCV MCH RDW Plt Count Lymph % (Auto) [place] % (Auto) Eos % (Auto) Baso % (Auto) Lymph # Baso # Seg Neutrophils % Lymphocytes % (Manual) Monocytes % (Manual) Nucleated RBC % Seg Neutrophils # Seg Neutrophils # Man Monocytes # (Manual) PT INR Activated Clotting Time POC ABG pH 7.513 H POC ABG pCO2 22.1 L POC ABG pO2 64 L Sodium Potassium Chloride Carbon Dioxide BUN Creatinine Glucose POC Glucose 121 H Calcium Magnesium Direct Bilirubin AST ALT Alkaline Phosphatase Total Creatine Kinase CK-MB (CK-2) CK-MB (CK-2) Rel Index Troponin T C-Reactive Protein Total Protein Albumin Triglycerides 151 H Ur Specific [place] Urine WBC (Auto) Miscellaneous Test 04/01/17 04/02/17 04/02/17 18:17 00:11 04:52 WBC RBC Hgb Hct MCV MCH RDW Plt Count Lymph % (Auto) [place] % (Auto) Eos % (Auto) Baso % (Auto) Lymph # Baso # Seg Neutrophils % Lymphocytes % (Manual) Monocytes % (Manual) Nucleated RBC % Seg Neutrophils # Seg Neutrophils # Man Monocytes # (Manual) PT INR Activated Clotting Time POC ABG pH 7.524 H POC ABG pCO2 25.5 L POC ABG pO2 66 L Sodium Potassium Chloride Carbon Dioxide BUN Creatinine Glucose POC Glucose 117 H 122 H Calcium Magnesium Direct Bilirubin AST ALT Alkaline Phosphatase Total Creatine Kinase CK-MB (CK-2) CK-MB (CK-2) Rel Index Troponin T C-Reactive Protein Total Protein Albumin Triglycerides Ur Specific [place] Urine WBC (Auto) Miscellaneous Test 04/02/17 04/02/17 04/02/17 05:18 10:41 12:19 WBC RBC Hgb Hct MCV MCH RDW Plt Count Lymph % (Auto) [place] % (Auto) Eos % (Auto) Baso % (Auto) Lymph # Baso # Seg Neutrophils % Lymphocytes % (Manual) Monocytes % (Manual) Nucleated RBC % Seg Neutrophils # Seg Neutrophils # Man Monocytes # (Manual) PT INR Activated Clotting Time POC ABG pH 7.534 H POC ABG pCO2 27.4 L POC ABG pO2 Sodium Potassium Chloride Carbon Dioxide BUN Creatinine Glucose POC Glucose 132 H 129 H Calcium Magnesium Direct Bilirubin AST ALT Alkaline Phosphatase Total Creatine Kinase CK-MB (CK-2) CK-MB (CK-2) Rel Index Troponin T C-Reactive Protein Total Protein Albumin Triglycerides Ur Specific [place] Urine WBC (Auto) Miscellaneous Test 04/02/17 04/03/17 04/03/17 18:05 00:08 05:09 WBC RBC Hgb Hct MCV MCH RDW Plt Count Lymph % (Auto) [place] % (Auto) Eos % (Auto) Baso % (Auto) Lymph # Baso # Seg Neutrophils % Lymphocytes % (Manual) Monocytes % (Manual) Nucleated RBC % Seg Neutrophils # Seg Neutrophils # Man Monocytes # (Manual) PT INR Activated Clotting Time POC ABG pH 7.455 H POC ABG pCO2 33.2 L POC ABG pO2 120 H Sodium Potassium Chloride Carbon Dioxide BUN Creatinine Glucose POC Glucose 136 H 128 H Calcium Magnesium Direct Bilirubin AST ALT Alkaline Phosphatase Total Creatine Kinase CK-MB (CK-2) CK-MB (CK-2) Rel Index Troponin T C-Reactive Protein Total Protein Albumin Triglycerides Ur Specific [place] Urine WBC (Auto) Miscellaneous Test 04/03/17 04/03/17 04/03/17 06:32 11:54 12:16 WBC 11.9 H RBC Hgb Hct MCV MCH RDW Plt Count 125 L Lymph % (Auto) 4.8 L [place] % (Auto) Eos % (Auto) Baso % (Auto) Lymph # 0.6 L Baso # Seg Neutrophils % 86.7 H Lymphocytes % (Manual) Monocytes % (Manual) Nucleated RBC % Seg Neutrophils # 10.3 H Seg Neutrophils # Man Monocytes # (Manual) PT INR Activated Clotting Time POC ABG pH POC ABG pCO2 POC ABG pO2 Sodium Potassium Chloride Carbon Dioxide BUN Creatinine Glucose POC Glucose 138 H 143 H Calcium Magnesium Direct Bilirubin AST ALT Alkaline Phosphatase Total Creatine Kinase CK-MB (CK-2) CK-MB (CK-2) Rel Index Troponin T C-Reactive Protein Total Protein Albumin Triglycerides Ur Specific [place] Urine WBC (Auto) Miscellaneous Test 04/03/17 04/03/17 04/04/17 17:33 23:59 04:34 WBC RBC Hgb Hct MCV MCH RDW Plt Count Lymph % (Auto) [place] % (Auto) Eos % (Auto) Baso % (Auto) Lymph # Baso # Seg Neutrophils % Lymphocytes % (Manual) Monocytes % (Manual) Nucleated RBC % Seg Neutrophils # Seg Neutrophils # Man Monocytes # (Manual) PT INR Activated Clotting Time POC ABG pH 7.457 H POC ABG pCO2 29.8 L POC ABG pO2 76 L Sodium Potassium Chloride Carbon Dioxide BUN Creatinine Glucose POC Glucose 130 H 155 H Calcium Magnesium Direct Bilirubin AST ALT Alkaline Phosphatase Total Creatine Kinase CK-MB (CK-2) CK-MB (CK-2) Rel Index Troponin T C-Reactive Protein Total Protein Albumin Triglycerides Ur Specific [place] Urine WBC (Auto) Miscellaneous Test 04/04/17 04/04/17 04/04/17 05:27 12:22 18:18 WBC RBC Hgb Hct MCV MCH RDW Plt Count Lymph % (Auto) [place] % (Auto) Eos % (Auto) Baso % (Auto) Lymph # Baso # Seg Neutrophils % Lymphocytes % (Manual) Monocytes % (Manual) Nucleated RBC % Seg Neutrophils # Seg Neutrophils # Man Monocytes # (Manual) PT INR Activated Clotting Time POC ABG pH POC ABG pCO2 POC ABG pO2 Sodium Potassium Chloride Carbon Dioxide BUN Creatinine Glucose POC Glucose 164 H 146 H 130 H Calcium Magnesium Direct Bilirubin AST ALT Alkaline Phosphatase Total Creatine Kinase CK-MB (CK-2) CK-MB (CK-2) Rel Index Troponin T C-Reactive Protein Total Protein Albumin Triglycerides Ur Specific [place] Urine WBC (Auto) Miscellaneous Test 04/05/17 04/05/17 04/05/17 04:43 05:28 11:36 WBC RBC Hgb Hct MCV MCH RDW Plt Count Lymph % (Auto) [place] % (Auto) Eos % (Auto) Baso % (Auto) Lymph # Baso # Seg Neutrophils % Lymphocytes % (Manual) Monocytes % (Manual) Nucleated RBC % Seg Neutrophils # Seg Neutrophils # Man Monocytes # (Manual) PT INR Activated Clotting Time POC ABG pH 7.479 H POC ABG pCO2 33.5 L POC ABG pO2 76 L Sodium Potassium Chloride Carbon Dioxide BUN Creatinine Glucose POC Glucose 145 H 136 H Calcium Magnesium Direct Bilirubin AST ALT Alkaline Phosphatase Total Creatine Kinase CK-MB (CK-2) CK-MB (CK-2) Rel Index Troponin T C-Reactive Protein Total Protein Albumin Triglycerides Ur Specific [place] Urine WBC (Auto) Miscellaneous Test 04/05/17 04/06/17 04/06/17 17:58 00:16 05:26 WBC RBC Hgb Hct MCV MCH RDW Plt Count Lymph % (Auto) [place] % (Auto) Eos % (Auto) Baso % (Auto) Lymph # Baso # Seg Neutrophils % Lymphocytes % (Manual) Monocytes % (Manual) Nucleated RBC % Seg Neutrophils # Seg Neutrophils # Man Monocytes # (Manual) PT INR Activated Clotting Time POC ABG pH POC ABG pCO2 POC ABG pO2 Sodium Potassium Chloride Carbon Dioxide BUN Creatinine Glucose POC Glucose 130 H 159 H 146 H Calcium Magnesium Direct Bilirubin AST ALT Alkaline Phosphatase Total Creatine Kinase CK-MB (CK-2) CK-MB (CK-2) Rel Index Troponin T C-Reactive Protein Total Protein Albumin Triglycerides Ur Specific [place] Urine WBC (Auto) Miscellaneous Test 04/06/17 04/06/17 04/07/17 13:11 16:54 11:45 WBC RBC Hgb Hct MCV MCH RDW Plt Count Lymph % (Auto) [place] % (Auto) Eos % (Auto) Baso % (Auto) Lymph # Baso # Seg Neutrophils % Lymphocytes % (Manual) Monocytes % (Manual) Nucleated RBC % Seg Neutrophils # Seg Neutrophils # Man Monocytes # (Manual) PT INR Activated Clotting Time POC ABG pH 7.517 H POC ABG pCO2 32.1 L POC ABG pO2 Sodium Potassium Chloride Carbon Dioxide BUN Creatinine Glucose POC Glucose 132 H 123 H Calcium Magnesium Direct Bilirubin AST ALT Alkaline Phosphatase Total Creatine Kinase CK-MB (CK-2) CK-MB (CK-2) Rel Index Troponin T C-Reactive Protein Total Protein Albumin Triglycerides Ur Specific [place] Urine WBC (Auto) Miscellaneous Test 04/07/17 04/07/17 04/07/17 12:51 17:40 23:55 WBC RBC Hgb Hct MCV MCH RDW Plt Count Lymph % (Auto) [place] % (Auto) Eos % (Auto) Baso % (Auto) Lymph # Baso # Seg Neutrophils % Lymphocytes % (Manual) Monocytes % (Manual) Nucleated RBC % Seg Neutrophils # Seg Neutrophils # Man Monocytes # (Manual) PT INR Activated Clotting Time POC ABG pH POC ABG pCO2 POC ABG pO2 Sodium Potassium Chloride Carbon Dioxide BUN Creatinine Glucose POC Glucose 138 H 154 H 143 H Calcium Magnesium Direct Bilirubin AST ALT Alkaline Phosphatase Total Creatine Kinase CK-MB (CK-2) CK-MB (CK-2) Rel Index Troponin T C-Reactive Protein Total Protein Albumin Triglycerides Ur Specific [place] Urine WBC (Auto) Miscellaneous Test 04/08/17 04/08/17 04/08/17 05:27 11:14 17:44 WBC RBC Hgb Hct MCV MCH RDW Plt Count Lymph % (Auto) [place] % (Auto) Eos % (Auto) Baso % (Auto) Lymph # Baso # Seg Neutrophils % Lymphocytes % (Manual) Monocytes % (Manual) Nucleated RBC % Seg Neutrophils # Seg Neutrophils # Man Monocytes # (Manual) PT INR Activated Clotting Time POC ABG pH POC ABG pCO2 POC ABG pO2 Sodium Potassium Chloride Carbon Dioxide BUN Creatinine Glucose POC Glucose 142 H 153 H 129 H Calcium Magnesium Direct Bilirubin AST ALT Alkaline Phosphatase Total Creatine Kinase CK-MB (CK-2) CK-MB (CK-2) Rel Index Troponin T C-Reactive Protein Total Protein Albumin Triglycerides Ur Specific [place] Urine WBC (Auto) Miscellaneous Test 04/09/17 04/09/17 04/09/17 08:20 11:21 17:37 WBC RBC Hgb Hct MCV MCH RDW Plt Count Lymph % (Auto) [place] % (Auto) Eos % (Auto) Baso % (Auto) Lymph # Baso # Seg Neutrophils % Lymphocytes % (Manual) Monocytes % (Manual) Nucleated RBC % Seg Neutrophils # Seg Neutrophils # Man Monocytes # (Manual) PT INR Activated Clotting Time POC ABG pH POC ABG pCO2 POC ABG pO2 Sodium 147 H Potassium Chloride 108.8 H Carbon Dioxide BUN 39 H Creatinine 0.5 L Glucose 138 H POC Glucose 152 H 109 H Calcium Magnesium Direct Bilirubin AST ALT Alkaline Phosphatase Total Creatine Kinase CK-MB (CK-2) CK-MB (CK-2) Rel Index Troponin T C-Reactive Protein Total Protein Albumin Triglycerides Ur Specific [place] Urine WBC (Auto) Miscellaneous Test 04/10/17 04/10/17 04/10/17 00:13 04:16 04:16 WBC RBC Hgb 11.5 L Hct MCV 96 H MCH RDW Plt Count 103 L Lymph % (Auto) 11.1 L [place] % (Auto) Eos % (Auto) Baso % (Auto) Lymph # Baso # Seg Neutrophils % 81.5 H Lymphocytes % (Manual) Monocytes % (Manual) Nucleated RBC % Seg Neutrophils # 8.8 H Seg Neutrophils # Man Monocytes # (Manual) PT INR Activated Clotting Time POC ABG pH POC ABG pCO2 POC ABG pO2 Sodium 148 H Potassium Chloride 109.0 H Carbon Dioxide BUN 36 H Creatinine 0.5 L Glucose 131 H POC Glucose 127 H Calcium 8.1 L Magnesium 2.40 H Direct Bilirubin AST 206 H ALT 228 H Alkaline Phosphatase 178 H Total Creatine Kinase CK-MB (CK-2) CK-MB (CK-2) Rel Index Troponin T C-Reactive Protein Total Protein Albumin 2.8 L Triglycerides Ur Specific [place] Urine WBC (Auto) Miscellaneous Test 04/10/17 04/10/17 04/10/17 06:01 11:57 18:27 WBC RBC Hgb Hct MCV MCH RDW Plt Count Lymph % (Auto) [place] % (Auto) Eos % (Auto) Baso % (Auto) Lymph # Baso # Seg Neutrophils % Lymphocytes % (Manual) Monocytes % (Manual) Nucleated RBC % Seg Neutrophils # Seg Neutrophils # Man Monocytes # (Manual) PT INR Activated Clotting Time POC ABG pH POC ABG pCO2 POC ABG pO2 Sodium Potassium Chloride Carbon Dioxide BUN Creatinine Glucose POC Glucose 108 H 154 H 130 H Calcium Magnesium Direct Bilirubin AST ALT Alkaline Phosphatase Total Creatine Kinase CK-MB (CK-2) CK-MB (CK-2) Rel Index Troponin T C-Reactive Protein Total Protein Albumin Triglycerides Ur Specific [place] Urine WBC (Auto) Miscellaneous Test 04/11/17 04/11/17 04/12/17 12:25 17:10 00:22 WBC RBC Hgb Hct MCV MCH RDW Plt Count Lymph % (Auto) [place] % (Auto) Eos % (Auto) Baso % (Auto) Lymph # Baso # Seg Neutrophils % Lymphocytes % (Manual) Monocytes % (Manual) Nucleated RBC % Seg Neutrophils # Seg Neutrophils # Man Monocytes # (Manual) PT INR Activated Clotting Time POC ABG pH POC ABG pCO2 POC ABG pO2 Sodium Potassium Chloride Carbon Dioxide BUN Creatinine Glucose POC Glucose 107 H 129 H 128 H Calcium Magnesium Direct Bilirubin AST ALT Alkaline Phosphatase Total Creatine Kinase CK-MB (CK-2) CK-MB (CK-2) Rel Index Troponin T C-Reactive Protein Total Protein Albumin Triglycerides Ur Specific [place] Urine WBC (Auto) Miscellaneous Test 04/12/17 04/12/17 04/12/17 05:00 11:57 17:47 WBC RBC Hgb Hct MCV MCH RDW Plt Count Lymph % (Auto) [place] % (Auto) Eos % (Auto) Baso % (Auto) Lymph # Baso # Seg Neutrophils % Lymphocytes % (Manual) Monocytes % (Manual) Nucleated RBC % Seg Neutrophils # Seg Neutrophils # Man Monocytes # (Manual) PT INR Activated Clotting Time POC ABG pH POC ABG pCO2 POC ABG pO2 Sodium Potassium Chloride Carbon Dioxide BUN Creatinine Glucose POC Glucose 140 H 142 H Calcium Magnesium Direct Bilirubin AST 158 H ALT 184 H Alkaline Phosphatase 170 H Total Creatine Kinase CK-MB (CK-2) CK-MB (CK-2) Rel Index Troponin T C-Reactive Protein Total Protein Albumin 2.8 L Triglycerides Ur Specific [place] Urine WBC (Auto) Miscellaneous Test 04/12/17 04/12/17 04/13/17 21:36 21:36 01:37 WBC RBC Hgb Hct MCV MCH RDW Plt Count Lymph % (Auto) [place] % (Auto) Eos % (Auto) Baso % (Auto) Lymph # Baso # Seg Neutrophils % Lymphocytes % (Manual) Monocytes % (Manual) Nucleated RBC % Seg Neutrophils # Seg Neutrophils # Man Monocytes # (Manual) PT INR Activated Clotting Time POC ABG pH POC ABG pCO2 POC ABG pO2 Sodium Potassium Chloride Carbon Dioxide BUN Creatinine Glucose POC Glucose 126 H Calcium Magnesium Direct Bilirubin AST ALT Alkaline Phosphatase Total Creatine Kinase 1404 H CK-MB (CK-2) 8.0 H CK-MB (CK-2) Rel Index Troponin T 0.767 H* C-Reactive Protein Total Protein Albumin Triglycerides Ur Specific [place] Urine WBC (Auto) Miscellaneous Test 04/13/17 04/13/17 04/13/17 04:45 04:52 12:17 WBC RBC Hgb Hct MCV MCH RDW Plt Count Lymph % (Auto) [place] % (Auto) Eos % (Auto) Baso % (Auto) Lymph # Baso # Seg Neutrophils % Lymphocytes % (Manual) Monocytes % (Manual) Nucleated RBC % Seg Neutrophils # Seg Neutrophils # Man Monocytes # (Manual) PT INR Activated Clotting Time POC ABG pH POC ABG pCO2 POC ABG pO2 Sodium 148 H Potassium Chloride 112.8 H Carbon Dioxide BUN 33 H Creatinine 0.4 L Glucose 121 H POC Glucose 126 H 149 H Calcium Magnesium Direct Bilirubin AST 160 H ALT 189 H Alkaline Phosphatase 166 H Total Creatine Kinase CK-MB (CK-2) CK-MB (CK-2) Rel Index Troponin T C-Reactive Protein Total Protein Albumin 2.6 L Triglycerides Ur Specific [place] Urine WBC (Auto) Miscellaneous Test 04/13/17 04/14/17 04/14/17 17:45 00:20 00:45 WBC RBC Hgb Hct MCV MCH RDW Plt Count Lymph % (Auto) [place] % (Auto) Eos % (Auto) Baso % (Auto) Lymph # Baso # Seg Neutrophils % Lymphocytes % (Manual) Monocytes % (Manual) Nucleated RBC % Seg Neutrophils # Seg Neutrophils # Man Monocytes # (Manual) PT INR Activated Clotting Time POC ABG pH POC ABG pCO2 POC ABG pO2 Sodium Potassium Chloride Carbon Dioxide BUN Creatinine Glucose POC Glucose 130 H 144 H 144 H Calcium Magnesium Direct Bilirubin AST ALT Alkaline Phosphatase Total Creatine Kinase CK-MB (CK-2) CK-MB (CK-2) Rel Index Troponin T C-Reactive Protein Total Protein Albumin Triglycerides Ur Specific [place] Urine WBC (Auto) Miscellaneous Test 04/14/17 04/14/17 04/14/17 05:40 11:06 11:31 WBC RBC Hgb Hct MCV MCH RDW Plt Count Lymph % (Auto) [place] % (Auto) Eos % (Auto) Baso % (Auto) Lymph # Baso # Seg Neutrophils % Lymphocytes % (Manual) Monocytes % (Manual) Nucleated RBC % Seg Neutrophils # Seg Neutrophils # Man Monocytes # (Manual) PT INR Activated Clotting Time POC ABG pH POC ABG pCO2 POC ABG pO2 Sodium Potassium Chloride Carbon Dioxide BUN Creatinine Glucose POC Glucose 139 H 123 H Calcium Magnesium Direct Bilirubin AST ALT Alkaline Phosphatase Total Creatine Kinase CK-MB (CK-2) CK-MB (CK-2) Rel Index Troponin T C-Reactive Protein Total Protein Albumin Triglycerides Ur Specific [place] 1.033 H Urine WBC (Auto) > 182.0 H Miscellaneous Test 04/14/17 04/14/17 04/15/17 18:00 23:52 05:15 WBC 12.5 H RBC 3.38 L Hgb 10.6 L Hct 32.7 L MCV 97 H MCH RDW Plt Count 107 L Lymph % (Auto) 8.7 L [place] % (Auto) Eos % (Auto) Baso % (Auto) Lymph # 1.1 L Baso # Seg Neutrophils % 86.1 H Lymphocytes % (Manual) Monocytes % (Manual) Nucleated RBC % Seg Neutrophils # 10.7 H Seg Neutrophils # Man Monocytes # (Manual) PT INR Activated Clotting Time POC ABG pH POC ABG pCO2 POC ABG pO2 Sodium Potassium Chloride Carbon Dioxide BUN Creatinine Glucose POC Glucose 133 H 133 H Calcium Magnesium Direct Bilirubin AST ALT Alkaline Phosphatase Total Creatine Kinase CK-MB (CK-2) CK-MB (CK-2) Rel Index Troponin T C-Reactive Protein Total Protein Albumin Triglycerides Ur Specific [place] Urine WBC (Auto) Miscellaneous Test 04/15/17 04/15/17 04/15/17 05:15 05:25 11:50 WBC RBC Hgb Hct MCV MCH RDW Plt Count Lymph % (Auto) [place] % (Auto) Eos % (Auto) Baso % (Auto) Lymph # Baso # Seg Neutrophils % Lymphocytes % (Manual) Monocytes % (Manual) Nucleated RBC % Seg Neutrophils # Seg Neutrophils # Man Monocytes # (Manual) PT INR Activated Clotting Time POC ABG pH POC ABG pCO2 POC ABG pO2 Sodium 149 H Potassium 3.5 L Chloride 114.1 H Carbon Dioxide 21 L BUN 29 H Creatinine 0.4 L Glucose 128 H POC Glucose 133 H 107 H Calcium 8.3 L Magnesium Direct Bilirubin 0.4 H AST 149 H ALT 182 H Alkaline Phosphatase 143 H Total Creatine Kinase CK-MB (CK-2) CK-MB (CK-2) Rel Index Troponin T C-Reactive Protein Total Protein Albumin 2.5 L Triglycerides Ur Specific [place] Urine WBC (Auto) Miscellaneous Test 04/15/17 04/16/17 04/16/17 16:55 00:02 03:17 WBC RBC 3.39 L Hgb 10.5 L Hct 32.4 L MCV 96 H MCH RDW Plt Count 106 L Lymph % (Auto) 6.7 L [place] % (Auto) Eos % (Auto) Baso % (Auto) Lymph # 0.6 L Baso # Seg Neutrophils % 86.8 H Lymphocytes % (Manual) Monocytes % (Manual) Nucleated RBC % Seg Neutrophils # 8.2 H Seg Neutrophils # Man Monocytes # (Manual) PT INR Activated Clotting Time POC ABG pH POC ABG pCO2 POC ABG pO2 Sodium Potassium Chloride Carbon Dioxide BUN Creatinine Glucose POC Glucose 146 H 148 H Calcium Magnesium Direct Bilirubin AST ALT Alkaline Phosphatase Total Creatine Kinase CK-MB (CK-2) CK-MB (CK-2) Rel Index Troponin T C-Reactive Protein Total Protein Albumin Triglycerides Ur Specific [place] Urine WBC (Auto) Miscellaneous Test 04/16/17 04/16/17 04/16/17 03:17 05:19 11:13 WBC RBC Hgb Hct MCV MCH RDW Plt Count Lymph % (Auto) [place] % (Auto) Eos % (Auto) Baso % (Auto) Lymph # Baso # Seg Neutrophils % Lymphocytes % (Manual) Monocytes % (Manual) Nucleated RBC % Seg Neutrophils # Seg Neutrophils # Man Monocytes # (Manual) PT INR Activated Clotting Time POC ABG pH POC ABG pCO2 POC ABG pO2 Sodium 149 H Potassium Chloride 111.1 H Carbon Dioxide 20 L BUN 27 H Creatinine 0.3 L Glucose 156 H POC Glucose 171 H 169 H Calcium 8.3 L Magnesium Direct Bilirubin AST ALT Alkaline Phosphatase Total Creatine Kinase CK-MB (CK-2) CK-MB (CK-2) Rel Index Troponin T C-Reactive Protein Total Protein Albumin Triglycerides Ur Specific [place] Urine WBC (Auto) Miscellaneous Test 04/16/17 04/17/17 04/17/17 17:03 00:00 05:09 WBC RBC Hgb Hct MCV MCH RDW Plt Count Lymph % (Auto) [place] % (Auto) Eos % (Auto) Baso % (Auto) Lymph # Baso # Seg Neutrophils % Lymphocytes % (Manual) Monocytes % (Manual) Nucleated RBC % Seg Neutrophils # Seg Neutrophils # Man Monocytes # (Manual) PT INR Activated Clotting Time POC ABG pH POC ABG pCO2 POC ABG pO2 Sodium Potassium Chloride Carbon Dioxide BUN Creatinine Glucose POC Glucose 151 H 165 H 145 H Calcium Magnesium Direct Bilirubin AST ALT Alkaline Phosphatase Total Creatine Kinase CK-MB (CK-2) CK-MB (CK-2) Rel Index Troponin T C-Reactive Protein Total Protein Albumin Triglycerides Ur Specific [place] Urine WBC (Auto) Miscellaneous Test 04/17/17 04/17/17 04/18/17 11:38 17:47 00:01 WBC RBC Hgb Hct MCV MCH RDW Plt Count Lymph % (Auto) [place] % (Auto) Eos % (Auto) Baso % (Auto) Lymph # Baso # Seg Neutrophils % Lymphocytes % (Manual) Monocytes % (Manual) Nucleated RBC % Seg Neutrophils # Seg Neutrophils # Man Monocytes # (Manual) PT INR Activated Clotting Time POC ABG pH POC ABG pCO2 POC ABG pO2 Sodium Potassium Chloride Carbon Dioxide BUN Creatinine Glucose POC Glucose 170 H 161 H 131 H Calcium Magnesium Direct Bilirubin AST ALT Alkaline Phosphatase Total Creatine Kinase CK-MB (CK-2) CK-MB (CK-2) Rel Index Troponin T C-Reactive Protein Total Protein Albumin Triglycerides Ur Specific [place] Urine WBC (Auto) Miscellaneous Test 04/18/17 04/18/17 04/18/17 03:55 03:55 05:30 WBC RBC 3.05 L Hgb 9.8 L Hct 29.0 L MCV 95 H MCH RDW Plt Count 113 L Lymph % (Auto) [place] % (Auto) Eos % (Auto) 5.3 H Baso % (Auto) Lymph # Baso # Seg Neutrophils % 71.5 H Lymphocytes % (Manual) Monocytes % (Manual) Nucleated RBC % Seg Neutrophils # Seg Neutrophils # Man Monocytes # (Manual) PT INR Activated Clotting Time POC ABG pH 7.460 H POC ABG pCO2 30.8 L POC ABG pO2 129 H Sodium Potassium Chloride Carbon Dioxide 21 L BUN 25 H Creatinine 0.4 L Glucose 123 H POC Glucose Calcium 8.3 L Magnesium Direct Bilirubin AST ALT Alkaline Phosphatase Total Creatine Kinase CK-MB (CK-2) CK-MB (CK-2) Rel Index Troponin T C-Reactive Protein Total Protein Albumin Triglycerides Ur Specific [place] Urine WBC (Auto) Miscellaneous Test 04/18/17 04/18/17 04/19/17 17:10 23:40 04:36 WBC RBC 3.21 L Hgb 10.2 L Hct 30.4 L MCV 95 H MCH RDW Plt Count 131 L Lymph % (Auto) 12.1 L [place] % (Auto) Eos % (Auto) 4.7 H Baso % (Auto) 2.4 H Lymph # 0.9 L Baso # 0.2 H Seg Neutrophils % 75.0 H Lymphocytes % (Manual) Monocytes % (Manual) Nucleated RBC % Seg Neutrophils # Seg Neutrophils # Man Monocytes # (Manual) PT INR Activated Clotting Time POC ABG pH POC ABG pCO2 POC ABG pO2 Sodium Potassium Chloride Carbon Dioxide BUN Creatinine Glucose POC Glucose 135 H 157 H Calcium Magnesium Direct Bilirubin AST ALT Alkaline Phosphatase Total Creatine Kinase CK-MB (CK-2) CK-MB (CK-2) Rel Index Troponin T C-Reactive Protein Total Protein Albumin Triglycerides Ur Specific [place] Urine WBC (Auto) Miscellaneous Test 04/19/17 04/19/17 04/19/17 04:36 05:12 06:50 WBC RBC Hgb Hct MCV MCH RDW Plt Count Lymph % (Auto) [place] % (Auto) Eos % (Auto) Baso % (Auto) Lymph # Baso # Seg Neutrophils % Lymphocytes % (Manual) Monocytes % (Manual) Nucleated RBC % Seg Neutrophils # Seg Neutrophils # Man Monocytes # (Manual) PT INR Activated Clotting Time POC ABG pH 7.516 H POC ABG pCO2 28.0 L POC ABG pO2 Sodium Potassium Chloride Carbon Dioxide 21 L BUN 23 H Creatinine 0.2 L Glucose 137 H POC Glucose 131 H Calcium 7.9 L Magnesium Direct Bilirubin AST ALT Alkaline Phosphatase Total Creatine Kinase CK-MB (CK-2) CK-MB (CK-2) Rel Index Troponin T C-Reactive Protein Total Protein Albumin Triglycerides Ur Specific [place] Urine WBC (Auto) Miscellaneous Test 04/19/17 04/19/17 04/20/17 12:36 17:42 00:12 WBC RBC Hgb Hct MCV MCH RDW Plt Count Lymph % (Auto) [place] % (Auto) Eos % (Auto) Baso % (Auto) Lymph # Baso # Seg Neutrophils % Lymphocytes % (Manual) Monocytes % (Manual) Nucleated RBC % Seg Neutrophils # Seg Neutrophils # Man Monocytes # (Manual) PT INR Activated Clotting Time POC ABG pH POC ABG pCO2 POC ABG pO2 Sodium Potassium Chloride Carbon Dioxide BUN Creatinine Glucose POC Glucose 128 H 140 H 132 H Calcium Magnesium Direct Bilirubin AST ALT Alkaline Phosphatase Total Creatine Kinase CK-MB (CK-2) CK-MB (CK-2) Rel Index Troponin T C-Reactive Protein Total Protein Albumin Triglycerides Ur Specific [place] Urine WBC (Auto) Miscellaneous Test 04/20/17 04/20/17 04/20/17 03:35 03:35 05:10 WBC RBC 3.34 L Hgb 10.4 L Hct 31.6 L MCV 95 H MCH RDW Plt Count Lymph % (Auto) 12.9 L [place] % (Auto) Eos % (Auto) Baso % (Auto) Lymph # Baso # Seg Neutrophils % 77.3 H Lymphocytes % (Manual) Monocytes % (Manual) Nucleated RBC % Seg Neutrophils # Seg Neutrophils # Man Monocytes # (Manual) PT INR Activated Clotting Time POC ABG pH POC ABG pCO2 POC ABG pO2 Sodium Potassium Chloride Carbon Dioxide BUN Creatinine 0.3 L Glucose 155 H POC Glucose 135 H Calcium 7.8 L Magnesium Direct Bilirubin AST ALT Alkaline Phosphatase Total Creatine Kinase CK-MB (CK-2) CK-MB (CK-2) Rel Index Troponin T C-Reactive Protein Total Protein Albumin Triglycerides Ur Specific [place] Urine WBC (Auto) Miscellaneous Test 04/20/17 04/20/17 04/21/17 12:49 18:21 00:05 WBC RBC Hgb Hct MCV MCH RDW Plt Count Lymph % (Auto) [place] % (Auto) Eos % (Auto) Baso % (Auto) Lymph # Baso # Seg Neutrophils % Lymphocytes % (Manual) Monocytes % (Manual) Nucleated RBC % Seg Neutrophils # Seg Neutrophils # Man Monocytes # (Manual) PT INR Activated Clotting Time POC ABG pH POC ABG pCO2 POC ABG pO2 Sodium Potassium Chloride Carbon Dioxide BUN Creatinine Glucose POC Glucose 155 H 165 H 141 H Calcium Magnesium Direct Bilirubin AST ALT Alkaline Phosphatase Total Creatine Kinase CK-MB (CK-2) CK-MB (CK-2) Rel Index Troponin T C-Reactive Protein Total Protein Albumin Triglycerides Ur Specific [place] Urine WBC (Auto) Miscellaneous Test 04/21/17 04/21/17 04/21/17 06:00 12:11 17:04 WBC RBC Hgb Hct MCV MCH RDW Plt Count Lymph % (Auto) [place] % (Auto) Eos % (Auto) Baso % (Auto) Lymph # Baso # Seg Neutrophils % Lymphocytes % (Manual) Monocytes % (Manual) Nucleated RBC % Seg Neutrophils # Seg Neutrophils # Man Monocytes # (Manual) PT INR Activated Clotting Time POC ABG pH POC ABG pCO2 POC ABG pO2 Sodium Potassium Chloride Carbon Dioxide BUN Creatinine Glucose POC Glucose 152 H 165 H 156 H Calcium Magnesium Direct Bilirubin AST ALT Alkaline Phosphatase Total Creatine Kinase CK-MB (CK-2) CK-MB (CK-2) Rel Index Troponin T C-Reactive Protein Total Protein Albumin Triglycerides Ur Specific [place] Urine WBC (Auto) Miscellaneous Test 04/21/17 04/21/17 04/22/17 22:00 23:59 05:49 WBC RBC Hgb Hct MCV MCH RDW Plt Count Lymph % (Auto) [place] % (Auto) Eos % (Auto) Baso % (Auto) Lymph # Baso # Seg Neutrophils % Lymphocytes % (Manual) Monocytes % (Manual) Nucleated RBC % Seg Neutrophils # Seg Neutrophils # Man Monocytes # (Manual) PT INR Activated Clotting Time POC ABG pH POC ABG pCO2 POC ABG pO2 Sodium Potassium Chloride Carbon Dioxide BUN Creatinine Glucose POC Glucose 166 H 173 H Calcium Magnesium Direct Bilirubin AST ALT Alkaline Phosphatase Total Creatine Kinase CK-MB (CK-2) CK-MB (CK-2) Rel Index Troponin T C-Reactive Protein Total Protein Albumin Triglycerides Ur Specific [place] Urine WBC (Auto) 10.0 H Miscellaneous Test 04/22/17 04/22/17 04/23/17 11:11 18:04 00:37 WBC RBC Hgb Hct MCV MCH RDW Plt Count Lymph % (Auto) [place] % (Auto) Eos % (Auto) Baso % (Auto) Lymph # Baso # Seg Neutrophils % Lymphocytes % (Manual) Monocytes % (Manual) Nucleated RBC % Seg Neutrophils # Seg Neutrophils # Man Monocytes # (Manual) PT INR Activated Clotting Time POC ABG pH POC ABG pCO2 POC ABG pO2 Sodium Potassium Chloride Carbon Dioxide BUN Creatinine Glucose POC Glucose 172 H 140 H 135 H Calcium Magnesium Direct Bilirubin AST ALT Alkaline Phosphatase Total Creatine Kinase CK-MB (CK-2) CK-MB (CK-2) Rel Index Troponin T C-Reactive Protein Total Protein Albumin Triglycerides Ur Specific [place] Urine WBC (Auto) Miscellaneous Test 04/23/17 04/23/17 04/23/17 05:33 06:20 11:10 WBC RBC 3.19 L Hgb 9.9 L Hct 30.0 L MCV MCH RDW Plt Count Lymph % (Auto) 8.0 L [place] % (Auto) Eos % (Auto) Baso % (Auto) Lymph # 0.8 L Baso # Seg Neutrophils % 84.5 H Lymphocytes % (Manual) Monocytes % (Manual) Nucleated RBC % Seg Neutrophils # 8.2 H Seg Neutrophils # Man Monocytes # (Manual) PT INR Activated Clotting Time POC ABG pH POC ABG pCO2 POC ABG pO2 Sodium Potassium Chloride Carbon Dioxide BUN Creatinine Glucose POC Glucose 134 H 134 H Calcium Magnesium Direct Bilirubin AST ALT Alkaline Phosphatase Total Creatine Kinase CK-MB (CK-2) CK-MB (CK-2) Rel Index Troponin T C-Reactive Protein Total Protein Albumin Triglycerides Ur Specific [place] Urine WBC (Auto) Miscellaneous Test 04/23/17 04/24/17 04/24/17 17:26 00:53 06:46 WBC RBC Hgb Hct MCV MCH RDW Plt Count Lymph % (Auto) [place] % (Auto) Eos % (Auto) Baso % (Auto) Lymph # Baso # Seg Neutrophils % Lymphocytes % (Manual) Monocytes % (Manual) Nucleated RBC % Seg Neutrophils # Seg Neutrophils # Man Monocytes # (Manual) PT INR Activated Clotting Time POC ABG pH POC ABG pCO2 POC ABG pO2 Sodium Potassium Chloride Carbon Dioxide BUN Creatinine Glucose POC Glucose 164 H 146 H 125 H Calcium Magnesium Direct Bilirubin AST ALT Alkaline Phosphatase Total Creatine Kinase CK-MB (CK-2) CK-MB (CK-2) Rel Index Troponin T C-Reactive Protein Total Protein Albumin Triglycerides Ur Specific [place] Urine WBC (Auto) Miscellaneous Test 04/24/17 04/24/17 04/24/17 11:55 17:50 23:36 WBC RBC Hgb Hct MCV MCH RDW Plt Count Lymph % (Auto) [place] % (Auto) Eos % (Auto) Baso % (Auto) Lymph # Baso # Seg Neutrophils % Lymphocytes % (Manual) Monocytes % (Manual) Nucleated RBC % Seg Neutrophils # Seg Neutrophils # Man Monocytes # (Manual) PT INR Activated Clotting Time POC ABG pH POC ABG pCO2 POC ABG pO2 Sodium Potassium Chloride Carbon Dioxide BUN Creatinine Glucose POC Glucose 156 H 146 H 131 H Calcium Magnesium Direct Bilirubin AST ALT Alkaline Phosphatase Total Creatine Kinase CK-MB (CK-2) CK-MB (CK-2) Rel Index Troponin T C-Reactive Protein Total Protein Albumin Triglycerides Ur Specific [place] Urine WBC (Auto) Miscellaneous Test 04/25/17 04/25/17 04/25/17 04:51 05:16 07:07 WBC RBC Hgb Hct MCV MCH RDW Plt Count Lymph % (Auto) [place] % (Auto) Eos % (Auto) Baso % (Auto) Lymph # Baso # Seg Neutrophils % Lymphocytes % (Manual) Monocytes % (Manual) Nucleated RBC % Seg Neutrophils # Seg Neutrophils # Man Monocytes # (Manual) PT INR Activated Clotting Time POC ABG pH POC ABG pCO2 POC ABG pO2 Sodium Potassium Chloride Carbon Dioxide BUN Creatinine Glucose POC Glucose 139 H Calcium Magnesium Direct Bilirubin AST 105 H ALT 204 H Alkaline Phosphatase 189 H Total Creatine Kinase CK-MB (CK-2) CK-MB (CK-2) Rel Index Troponin T C-Reactive Protein Total Protein Albumin 2.4 L Triglycerides Ur Specific [place] Urine WBC (Auto) Miscellaneous Test Flexitest 1 H 04/25/17 04/25/17 04/25/17 12:29 17:23 23:32 WBC RBC Hgb Hct MCV MCH RDW Plt Count Lymph % (Auto) [place] % (Auto) Eos % (Auto) Baso % (Auto) Lymph # Baso # Seg Neutrophils % Lymphocytes % (Manual) Monocytes % (Manual) Nucleated RBC % Seg Neutrophils # Seg Neutrophils # Man Monocytes # (Manual) PT INR Activated Clotting Time POC ABG pH POC ABG pCO2 POC ABG pO2 Sodium Potassium Chloride Carbon Dioxide BUN Creatinine Glucose POC Glucose 132 H 133 H 128 H Calcium Magnesium Direct Bilirubin AST ALT Alkaline Phosphatase Total Creatine Kinase CK-MB (CK-2) CK-MB (CK-2) Rel Index Troponin T C-Reactive Protein Total Protein Albumin Triglycerides Ur Specific [place] Urine WBC (Auto) Miscellaneous Test 04/26/17 04/26/17 04/26/17 05:24 11:28 17:09 WBC RBC Hgb Hct MCV MCH RDW Plt Count Lymph % (Auto) [place] % (Auto) Eos % (Auto) Baso % (Auto) Lymph # Baso # Seg Neutrophils % Lymphocytes % (Manual) Monocytes % (Manual) Nucleated RBC % Seg Neutrophils # Seg Neutrophils # Man Monocytes # (Manual) PT INR Activated Clotting Time POC ABG pH POC ABG pCO2 POC ABG pO2 Sodium Potassium Chloride Carbon Dioxide BUN Creatinine Glucose POC Glucose 132 H 146 H 141 H Calcium Magnesium Direct Bilirubin AST ALT Alkaline Phosphatase Total Creatine Kinase CK-MB (CK-2) CK-MB (CK-2) Rel Index Troponin T C-Reactive Protein Total Protein Albumin Triglycerides Ur Specific [place] Urine WBC (Auto) Miscellaneous Test 04/26/17 04/27/17 04/27/17 23:52 05:40 05:40 WBC RBC 3.22 L Hgb 10.0 L Hct 29.9 L MCV MCH RDW Plt Count Lymph % (Auto) [place] % (Auto) Eos % (Auto) Baso % (Auto) Lymph # Baso # Seg Neutrophils % 76.6 H Lymphocytes % (Manual) Monocytes % (Manual) Nucleated RBC % Seg Neutrophils # Seg Neutrophils # Man Monocytes # (Manual) PT INR Activated Clotting Time POC ABG pH POC ABG pCO2 POC ABG pO2 Sodium Potassium Chloride Carbon Dioxide BUN Creatinine Glucose POC Glucose 140 H Calcium Magnesium Direct Bilirubin AST 66 H ALT 137 H Alkaline Phosphatase 169 H Total Creatine Kinase CK-MB (CK-2) CK-MB (CK-2) Rel Index Troponin T C-Reactive Protein Total Protein 6.2 L Albumin 2.6 L Triglycerides Ur Specific [place] Urine WBC (Auto) Miscellaneous Test 04/27/17 04/27/17 04/27/17 05:40 06:10 11:13 WBC RBC Hgb Hct MCV MCH RDW Plt Count Lymph % (Auto) [place] % (Auto) Eos % (Auto) Baso % (Auto) Lymph # Baso # Seg Neutrophils % Lymphocytes % (Manual) Monocytes % (Manual) Nucleated RBC % Seg Neutrophils # Seg Neutrophils # Man Monocytes # (Manual) PT INR Activated Clotting Time POC ABG pH POC ABG pCO2 POC ABG pO2 Sodium Potassium Chloride Carbon Dioxide BUN Creatinine 0.2 L Glucose 139 H POC Glucose 130 H 151 H Calcium Magnesium Direct Bilirubin AST ALT Alkaline Phosphatase Total Creatine Kinase CK-MB (CK-2) CK-MB (CK-2) Rel Index Troponin T C-Reactive Protein Total Protein Albumin Triglycerides Ur Specific [place] Urine WBC (Auto) Miscellaneous Test 04/27/17 04/27/17 04/28/17 17:37 23:19 05:24 WBC RBC Hgb Hct MCV MCH RDW Plt Count Lymph % (Auto) [place] % (Auto) Eos % (Auto) Baso % (Auto) Lymph # Baso # Seg Neutrophils % Lymphocytes % (Manual) Monocytes % (Manual) Nucleated RBC % Seg Neutrophils # Seg Neutrophils # Man Monocytes # (Manual) PT INR Activated Clotting Time POC ABG pH POC ABG pCO2 POC ABG pO2 Sodium Potassium Chloride Carbon Dioxide BUN Creatinine Glucose POC Glucose 159 H 130 H 132 H Calcium Magnesium Direct Bilirubin AST ALT Alkaline Phosphatase Total Creatine Kinase CK-MB (CK-2) CK-MB (CK-2) Rel Index Troponin T C-Reactive Protein Total Protein Albumin Triglycerides Ur Specific [place] Urine WBC (Auto) Miscellaneous Test 04/28/17 04/28/17 04/28/17 11:15 17:38 23:23 WBC RBC Hgb Hct MCV MCH RDW Plt Count Lymph % (Auto) [place] % (Auto) Eos % (Auto) Baso % (Auto) Lymph # Baso # Seg Neutrophils % Lymphocytes % (Manual) Monocytes % (Manual) Nucleated RBC % Seg Neutrophils # Seg Neutrophils # Man Monocytes # (Manual) PT INR Activated Clotting Time POC ABG pH POC ABG pCO2 POC ABG pO2 Sodium Potassium Chloride Carbon Dioxide BUN Creatinine Glucose POC Glucose 162 H 133 H 138 H Calcium Magnesium Direct Bilirubin AST ALT Alkaline Phosphatase Total Creatine Kinase CK-MB (CK-2) CK-MB (CK-2) Rel Index Troponin T C-Reactive Protein Total Protein Albumin Triglycerides Ur Specific [place] Urine WBC (Auto) Miscellaneous Test 04/29/17 04/29/17 04/29/17 05:15 12:55 17:21 WBC RBC Hgb Hct MCV MCH RDW Plt Count Lymph % (Auto) [place] % (Auto) Eos % (Auto) Baso % (Auto) Lymph # Baso # Seg Neutrophils % Lymphocytes % (Manual) Monocytes % (Manual) Nucleated RBC % Seg Neutrophils # Seg Neutrophils # Man Monocytes # (Manual) PT INR Activated Clotting Time POC ABG pH POC ABG pCO2 POC ABG pO2 Sodium Potassium Chloride Carbon Dioxide BUN Creatinine Glucose POC Glucose 135 H 127 H 138 H Calcium Magnesium Direct Bilirubin AST ALT Alkaline Phosphatase Total Creatine Kinase CK-MB (CK-2) CK-MB (CK-2) Rel Index Troponin T C-Reactive Protein Total Protein Albumin Triglycerides Ur Specific [place] Urine WBC (Auto) Miscellaneous Test 04/29/17 04/30/17 04/30/17 23:52 04:55 12:22 WBC RBC Hgb Hct MCV MCH RDW Plt Count Lymph % (Auto) [place] % (Auto) Eos % (Auto) Baso % (Auto) Lymph # Baso # Seg Neutrophils % Lymphocytes % (Manual) Monocytes % (Manual) Nucleated RBC % Seg Neutrophils # Seg Neutrophils # Man Monocytes # (Manual) PT INR Activated Clotting Time POC ABG pH POC ABG pCO2 POC ABG pO2 Sodium Potassium Chloride Carbon Dioxide BUN Creatinine Glucose POC Glucose 142 H 146 H 132 H Calcium Magnesium Direct Bilirubin AST ALT Alkaline Phosphatase Total Creatine Kinase CK-MB (CK-2) CK-MB (CK-2) Rel Index Troponin T C-Reactive Protein Total Protein Albumin Triglycerides Ur Specific [place] Urine WBC (Auto) Miscellaneous Test 04/30/17 04/30/17 04/30/17 14:25 17:47 18:20 WBC RBC Hgb Hct MCV MCH RDW Plt Count Lymph % (Auto) [place] % (Auto) Eos % (Auto) Baso % (Auto) Lymph # Baso # Seg Neutrophils % Lymphocytes % (Manual) Monocytes % (Manual) Nucleated RBC % Seg Neutrophils # Seg Neutrophils # Man Monocytes # (Manual) PT INR Activated Clotting Time POC ABG pH 7.551 H POC ABG pCO2 32.7 L POC ABG pO2 Sodium Potassium Chloride Carbon Dioxide BUN 21 H Creatinine 0.2 L Glucose 141 H POC Glucose 139 H Calcium Magnesium Direct Bilirubin AST ALT Alkaline Phosphatase Total Creatine Kinase CK-MB (CK-2) CK-MB (CK-2) Rel Index Troponin T C-Reactive Protein Total Protein Albumin Triglycerides Ur Specific [place] Urine WBC (Auto) Miscellaneous Test 05/01/17 05/01/17 05/01/17 01:26 05:30 05:30 WBC RBC 3.49 L Hgb 10.3 L Hct 31.9 L MCV MCH RDW Plt Count Lymph % (Auto) [place] % (Auto) 8.1 H Eos % (Auto) Baso % (Auto) Lymph # Baso # Seg Neutrophils % 71.3 H Lymphocytes % (Manual) Monocytes % (Manual) Nucleated RBC % Seg Neutrophils # Seg Neutrophils # Man Monocytes # (Manual) PT INR Activated Clotting Time POC ABG pH POC ABG pCO2 POC ABG pO2 Sodium 136 L Potassium Chloride 97.6 L Carbon Dioxide BUN Creatinine 0.2 L Glucose 123 H POC Glucose 116 H Calcium Magnesium Direct Bilirubin AST 71 H ALT 125 H Alkaline Phosphatase 158 H Total Creatine Kinase CK-MB (CK-2) CK-MB (CK-2) Rel Index Troponin T C-Reactive Protein Total Protein Albumin 2.6 L Triglycerides Ur Specific [place] Urine WBC (Auto) Miscellaneous Test 05/01/17 05/01/17 05/02/17 11:59 17:23 00:08 WBC RBC Hgb Hct MCV MCH RDW Plt Count Lymph % (Auto) [place] % (Auto) Eos % (Auto) Baso % (Auto) Lymph # Baso # Seg Neutrophils % Lymphocytes % (Manual) Monocytes % (Manual) Nucleated RBC % Seg Neutrophils # Seg Neutrophils # Man Monocytes # (Manual) PT INR Activated Clotting Time POC ABG pH POC ABG pCO2 POC ABG pO2 Sodium Potassium Chloride Carbon Dioxide BUN Creatinine Glucose POC Glucose 118 H 144 H 122 H Calcium Magnesium Direct Bilirubin AST ALT Alkaline Phosphatase Total Creatine Kinase CK-MB (CK-2) CK-MB (CK-2) Rel Index Troponin T C-Reactive Protein Total Protein Albumin Triglycerides Ur Specific [place] Urine WBC (Auto) Miscellaneous Test 05/02/17 05/02/17 05/02/17 05:50 11:21 17:48 WBC RBC Hgb Hct MCV MCH RDW Plt Count Lymph % (Auto) [place] % (Auto) Eos % (Auto) Baso % (Auto) Lymph # Baso # Seg Neutrophils % Lymphocytes % (Manual) Monocytes % (Manual) Nucleated RBC % Seg Neutrophils # Seg Neutrophils # Man Monocytes # (Manual) PT INR Activated Clotting Time POC ABG pH POC ABG pCO2 POC ABG pO2 Sodium Potassium Chloride Carbon Dioxide BUN Creatinine Glucose POC Glucose 120 H 121 H 140 H Calcium Magnesium Direct Bilirubin AST ALT Alkaline Phosphatase Total Creatine Kinase CK-MB (CK-2) CK-MB (CK-2) Rel Index Troponin T C-Reactive Protein Total Protein Albumin Triglycerides Ur Specific [place] Urine WBC (Auto) Miscellaneous Test 05/02/17 05/03/17 05/03/17 23:12 05:35 11:52 WBC RBC Hgb Hct MCV MCH RDW Plt Count Lymph % (Auto) [place] % (Auto) Eos % (Auto) Baso % (Auto) Lymph # Baso # Seg Neutrophils % Lymphocytes % (Manual) Monocytes % (Manual) Nucleated RBC % Seg Neutrophils # Seg Neutrophils # Man Monocytes # (Manual) PT INR Activated Clotting Time POC ABG pH POC ABG pCO2 POC ABG pO2 Sodium Potassium Chloride Carbon Dioxide BUN Creatinine Glucose POC Glucose 128 H 113 H 126 H Calcium Magnesium Direct Bilirubin AST ALT Alkaline Phosphatase Total Creatine Kinase CK-MB (CK-2) CK-MB (CK-2) Rel Index Troponin T C-Reactive Protein Total Protein Albumin Triglycerides Ur Specific [place] Urine WBC (Auto) Miscellaneous Test 05/03/17 05/03/17 05/04/17 17:29 23:26 04:55 WBC RBC Hgb Hct MCV MCH RDW Plt Count Lymph % (Auto) [place] % (Auto) Eos % (Auto) Baso % (Auto) Lymph # Baso # Seg Neutrophils % Lymphocytes % (Manual) Monocytes % (Manual) Nucleated RBC % Seg Neutrophils # Seg Neutrophils # Man Monocytes # (Manual) PT INR Activated Clotting Time POC ABG pH POC ABG pCO2 POC ABG pO2 Sodium Potassium Chloride Carbon Dioxide BUN Creatinine Glucose POC Glucose 141 H 129 H 126 H Calcium Magnesium Direct Bilirubin AST ALT Alkaline Phosphatase Total Creatine Kinase CK-MB (CK-2) CK-MB (CK-2) Rel Index Troponin T C-Reactive Protein Total Protein Albumin Triglycerides Ur Specific [place] Urine WBC (Auto) Miscellaneous Test 05/04/17 05/04/17 05/05/17 12:09 17:46 00:06 WBC RBC Hgb Hct MCV MCH RDW Plt Count Lymph % (Auto) [place] % (Auto) Eos % (Auto) Baso % (Auto) Lymph # Baso # Seg Neutrophils % Lymphocytes % (Manual) Monocytes % (Manual) Nucleated RBC % Seg Neutrophils # Seg Neutrophils # Man Monocytes # (Manual) PT INR Activated Clotting Time POC ABG pH POC ABG pCO2 POC ABG pO2 Sodium Potassium Chloride Carbon Dioxide BUN Creatinine Glucose POC Glucose 125 H 125 H 110 H Calcium Magnesium Direct Bilirubin AST ALT Alkaline Phosphatase Total Creatine Kinase CK-MB (CK-2) CK-MB (CK-2) Rel Index Troponin T C-Reactive Protein Total Protein Albumin Triglycerides Ur Specific [place] Urine WBC (Auto) Miscellaneous Test 05/05/17 05/05/17 05/05/17 05:48 11:41 16:19 WBC RBC Hgb Hct MCV MCH RDW Plt Count Lymph % (Auto) [place] % (Auto) Eos % (Auto) Baso % (Auto) Lymph # Baso # Seg Neutrophils % Lymphocytes % (Manual) Monocytes % (Manual) Nucleated RBC % Seg Neutrophils # Seg Neutrophils # Man Monocytes # (Manual) PT INR Activated Clotting Time POC ABG pH POC ABG pCO2 POC ABG pO2 Sodium Potassium Chloride Carbon Dioxide BUN Creatinine Glucose POC Glucose 124 H 122 H 120 H Calcium Magnesium Direct Bilirubin AST ALT Alkaline Phosphatase Total Creatine Kinase CK-MB (CK-2) CK-MB (CK-2) Rel Index Troponin T C-Reactive Protein Total Protein Albumin Triglycerides Ur Specific [place] Urine WBC (Auto) Miscellaneous Test 05/06/17 05/06/17 05/06/17 00:16 05:47 11:42 WBC RBC Hgb Hct MCV MCH RDW Plt Count Lymph % (Auto) [place] % (Auto) Eos % (Auto) Baso % (Auto) Lymph # Baso # Seg Neutrophils % Lymphocytes % (Manual) Monocytes % (Manual) Nucleated RBC % Seg Neutrophils # Seg Neutrophils # Man Monocytes # (Manual) PT INR Activated Clotting Time POC ABG pH POC ABG pCO2 POC ABG pO2 Sodium Potassium Chloride Carbon Dioxide BUN Creatinine Glucose POC Glucose 110 H 142 H 120 H Calcium Magnesium Direct Bilirubin AST ALT Alkaline Phosphatase Total Creatine Kinase CK-MB (CK-2) CK-MB (CK-2) Rel Index Troponin T C-Reactive Protein Total Protein Albumin Triglycerides Ur Specific [place] Urine WBC (Auto) Miscellaneous Test 05/06/17 05/07/17 05/07/17 17:46 00:07 05:28 WBC RBC Hgb Hct MCV MCH RDW Plt Count Lymph % (Auto) [place] % (Auto) Eos % (Auto) Baso % (Auto) Lymph # Baso # Seg Neutrophils % Lymphocytes % (Manual) Monocytes % (Manual) Nucleated RBC % Seg Neutrophils # Seg Neutrophils # Man Monocytes # (Manual) PT INR Activated Clotting Time POC ABG pH POC ABG pCO2 POC ABG pO2 Sodium Potassium Chloride Carbon Dioxide BUN Creatinine Glucose POC Glucose 127 H 145 H 124 H Calcium Magnesium Direct Bilirubin AST ALT Alkaline Phosphatase Total Creatine Kinase CK-MB (CK-2) CK-MB (CK-2) Rel Index Troponin T C-Reactive Protein Total Protein Albumin Triglycerides Ur Specific [place] Urine WBC (Auto) Miscellaneous Test 05/07/17 05/07/17 05/08/17 11:17 17:14 00:03 WBC RBC Hgb Hct MCV MCH RDW Plt Count Lymph % (Auto) [place] % (Auto) Eos % (Auto) Baso % (Auto) Lymph # Baso # Seg Neutrophils % Lymphocytes % (Manual) Monocytes % (Manual) Nucleated RBC % Seg Neutrophils # Seg Neutrophils # Man Monocytes # (Manual) PT INR Activated Clotting Time POC ABG pH POC ABG pCO2 POC ABG pO2 Sodium Potassium Chloride Carbon Dioxide BUN Creatinine Glucose POC Glucose 144 H 125 H 122 H Calcium Magnesium Direct Bilirubin AST ALT Alkaline Phosphatase Total Creatine Kinase CK-MB (CK-2) CK-MB (CK-2) Rel Index Troponin T C-Reactive Protein Total Protein Albumin Triglycerides Ur Specific [place] Urine WBC (Auto) Miscellaneous Test 05/08/17 05/08/17 05/08/17 05:43 12:07 18:02 WBC RBC Hgb Hct MCV MCH RDW Plt Count Lymph % (Auto) [place] % (Auto) Eos % (Auto) Baso % (Auto) Lymph # Baso # Seg Neutrophils % Lymphocytes % (Manual) Monocytes % (Manual) Nucleated RBC % Seg Neutrophils # Seg Neutrophils # Man Monocytes # (Manual) PT INR Activated Clotting Time POC ABG pH POC ABG pCO2 POC ABG pO2 Sodium Potassium Chloride Carbon Dioxide BUN Creatinine Glucose POC Glucose 117 H 114 H 129 H Calcium Magnesium Direct Bilirubin AST ALT Alkaline Phosphatase Total Creatine Kinase CK-MB (CK-2) CK-MB (CK-2) Rel Index Troponin T C-Reactive Protein Total Protein Albumin Triglycerides Ur Specific [place] Urine WBC (Auto) Miscellaneous Test 05/08/17 05/09/17 05/09/17 23:53 04:19 05:14 WBC RBC Hgb Hct MCV MCH RDW Plt Count Lymph % (Auto) [place] % (Auto) Eos % (Auto) Baso % (Auto) Lymph # Baso # Seg Neutrophils % Lymphocytes % (Manual) Monocytes % (Manual) Nucleated RBC % Seg Neutrophils # Seg Neutrophils # Man Monocytes # (Manual) PT INR Activated Clotting Time POC ABG pH 7.524 H POC ABG pCO2 34.7 L POC ABG pO2 107 H Sodium Potassium Chloride Carbon Dioxide BUN Creatinine Glucose POC Glucose 125 H 118 H Calcium Magnesium Direct Bilirubin AST ALT Alkaline Phosphatase Total Creatine Kinase CK-MB (CK-2) CK-MB (CK-2) Rel Index Troponin T C-Reactive Protein Total Protein Albumin Triglycerides Ur Specific [place] Urine WBC (Auto) Miscellaneous Test 05/10/17 05/11/17 05/11/17 23:54 05:48 23:50 WBC RBC Hgb Hct MCV MCH RDW Plt Count Lymph % (Auto) [place] % (Auto) Eos % (Auto) Baso % (Auto) Lymph # Baso # Seg Neutrophils % Lymphocytes % (Manual) Monocytes % (Manual) Nucleated RBC % Seg Neutrophils # Seg Neutrophils # Man Monocytes # (Manual) PT INR Activated Clotting Time POC ABG pH POC ABG pCO2 POC ABG pO2 Sodium Potassium Chloride Carbon Dioxide BUN Creatinine Glucose POC Glucose 126 H 137 H 130 H Calcium Magnesium Direct Bilirubin AST ALT Alkaline Phosphatase Total Creatine Kinase CK-MB (CK-2) CK-MB (CK-2) Rel Index Troponin T C-Reactive Protein Total Protein Albumin Triglycerides Ur Specific [place] Urine WBC (Auto) Miscellaneous Test 05/12/17 05/12/17 05/12/17 05:48 11:33 18:00 WBC RBC Hgb Hct MCV MCH RDW Plt Count Lymph % (Auto) [place] % (Auto) Eos % (Auto) Baso % (Auto) Lymph # Baso # Seg Neutrophils % Lymphocytes % (Manual) Monocytes % (Manual) Nucleated RBC % Seg Neutrophils # Seg Neutrophils # Man Monocytes # (Manual) PT INR Activated Clotting Time POC ABG pH POC ABG pCO2 POC ABG pO2 Sodium Potassium Chloride Carbon Dioxide BUN Creatinine Glucose POC Glucose 126 H 116 H 131 H Calcium Magnesium Direct Bilirubin AST ALT Alkaline Phosphatase Total Creatine Kinase CK-MB (CK-2) CK-MB (CK-2) Rel Index Troponin T C-Reactive Protein Total Protein Albumin Triglycerides Ur Specific [place] Urine WBC (Auto) Miscellaneous Test 05/14/17 05/15/17 05/15/17 11:45 11:27 17:42 WBC RBC Hgb Hct MCV MCH RDW Plt Count Lymph % (Auto) [place] % (Auto) Eos % (Auto) Baso % (Auto) Lymph # Baso # Seg Neutrophils % Lymphocytes % (Manual) Monocytes % (Manual) Nucleated RBC % Seg Neutrophils # Seg Neutrophils # Man Monocytes # (Manual) PT INR Activated Clotting Time POC ABG pH POC ABG pCO2 POC ABG pO2 Sodium Potassium Chloride Carbon Dioxide BUN Creatinine Glucose POC Glucose 123 H 129 H 125 H Calcium Magnesium Direct Bilirubin AST ALT Alkaline Phosphatase Total Creatine Kinase CK-MB (CK-2) CK-MB (CK-2) Rel Index Troponin T C-Reactive Protein Total Protein Albumin Triglycerides Ur Specific [place] Urine WBC (Auto) Miscellaneous Test 05/16/17 05/16/17 05/17/17 00:29 06:50 03:45 WBC RBC Hgb 11.7 L Hct 34.8 L MCV MCH RDW 15.5 H Plt Count Lymph % (Auto) [place] % (Auto) 7.7 H Eos % (Auto) Baso % (Auto) Lymph # Baso # Seg Neutrophils % 73.7 H Lymphocytes % (Manual) Monocytes % (Manual) Nucleated RBC % Seg Neutrophils # Seg Neutrophils # Man Monocytes # (Manual) PT INR Activated Clotting Time POC ABG pH POC ABG pCO2 POC ABG pO2 Sodium Potassium Chloride Carbon Dioxide BUN Creatinine Glucose POC Glucose 141 H 138 H Calcium Magnesium Direct Bilirubin AST ALT Alkaline Phosphatase Total Creatine Kinase CK-MB (CK-2) CK-MB (CK-2) Rel Index Troponin T C-Reactive Protein Total Protein Albumin Triglycerides Ur Specific [place] Urine WBC (Auto) Miscellaneous Test 05/17/17 05/20/17 05/23/17 03:45 17:31 23:09 WBC RBC Hgb Hct MCV MCH RDW Plt Count Lymph % (Auto) [place] % (Auto) Eos % (Auto) Baso % (Auto) Lymph # Baso # Seg Neutrophils % Lymphocytes % (Manual) Monocytes % (Manual) Nucleated RBC % Seg Neutrophils # Seg Neutrophils # Man Monocytes # (Manual) PT INR Activated Clotting Time POC ABG pH POC ABG pCO2 POC ABG pO2 Sodium Potassium Chloride Carbon Dioxide BUN Creatinine 0.2 L Glucose 131 H POC Glucose 116 H 122 H Calcium Magnesium Direct Bilirubin AST ALT Alkaline Phosphatase Total Creatine Kinase CK-MB (CK-2) CK-MB (CK-2) Rel Index Troponin T C-Reactive Protein Total Protein Albumin Triglycerides Ur Specific [place] Urine WBC (Auto) Miscellaneous Test 05/24/17 05/26/17 05/27/17 05:37 05:23 01:16 WBC RBC Hgb Hct MCV MCH RDW Plt Count Lymph % (Auto) [place] % (Auto) Eos % (Auto) Baso % (Auto) Lymph # Baso # Seg Neutrophils % Lymphocytes % (Manual) Monocytes % (Manual) Nucleated RBC % Seg Neutrophils # Seg Neutrophils # Man Monocytes # (Manual) PT INR Activated Clotting Time POC ABG pH POC ABG pCO2 POC ABG pO2 Sodium Potassium Chloride Carbon Dioxide BUN Creatinine Glucose POC Glucose 139 H 108 H 126 H Calcium Magnesium Direct Bilirubin AST ALT Alkaline Phosphatase Total Creatine Kinase CK-MB (CK-2) CK-MB (CK-2) Rel Index Troponin T C-Reactive Protein Total Protein Albumin Triglycerides Ur Specific [place] Urine WBC (Auto) Miscellaneous Test 05/27/17 05/27/17 05/29/17 05:33 21:49 04:37 WBC RBC Hgb Hct MCV MCH RDW 15.5 H Plt Count Lymph % (Auto) [place] % (Auto) Eos % (Auto) Baso % (Auto) Lymph # Baso # Seg Neutrophils % Lymphocytes % (Manual) Monocytes % (Manual) Nucleated RBC % Seg Neutrophils # Seg Neutrophils # Man Monocytes # (Manual) PT INR Activated Clotting Time POC ABG pH POC ABG pCO2 POC ABG pO2 Sodium Potassium Chloride Carbon Dioxide BUN Creatinine Glucose POC Glucose 129 H 110 H Calcium Magnesium Direct Bilirubin AST ALT Alkaline Phosphatase Total Creatine Kinase CK-MB (CK-2) CK-MB (CK-2) Rel Index Troponin T C-Reactive Protein Total Protein Albumin Triglycerides Ur Specific [place] Urine WBC (Auto) Miscellaneous Test 05/29/17 04:37 WBC RBC Hgb Hct MCV MCH RDW Plt Count Lymph % (Auto) [place] % (Auto) Eos % (Auto) Baso % (Auto) Lymph # Baso # Seg Neutrophils % Lymphocytes % (Manual) Monocytes % (Manual) Nucleated RBC % Seg Neutrophils # Seg Neutrophils # Man Monocytes # (Manual) PT INR Activated Clotting Time POC ABG pH POC ABG pCO2 POC ABG pO2 Sodium Potassium Chloride 97.6 L Carbon Dioxide BUN Creatinine 0.2 L Glucose 121 H POC Glucose Calcium Magnesium Direct Bilirubin AST ALT Alkaline Phosphatase Total Creatine Kinase CK-MB (CK-2) CK-MB (CK-2) Rel Index Troponin T C-Reactive Protein Total Protein Albumin Triglycerides Ur Specific [place] Urine WBC (Auto) Miscellaneous Test
[2017-05-29] MEDS: ELIQUIS PO SCH ×2 (09:32→21:56)
[2017-05-29] MEDS: PROTONIX FEEDTUBE SCH (09:32)
[2017-05-29] MEDS: LOPRESSOR PO SCH ×2 (09:32→21:57)
[2017-05-29] MEDS: PLAVIX PO SCH (09:32)
[2017-05-29] MEDS: CORDARONE PO SCH ×2 (09:32→21:56)
[2017-05-29] MEDS: ASPIRIN PO SCH (09:32)
[2017-05-29] MEDS: ZESTRIL PO SCH (09:33)
--- NOTE | 2017-05-29 09:49 | Progress Note ---
Assessment and Plan Assessment and plan: 46 y/o male with out of hospital Vfib arrest, s/p LHC with stent placement, likely with anoxic encephalopathy, status post trach and PEG. V. fib arrest status post, CPR :anoxic encephalopathy respiratory failure vent dependent tracheostomy and PEG placement. Anoxic encephalopathy. Supportive care Acute hypoxic hypercapnic respiratory failure; status post trach, vent dependent , Hematuria; unknown etiology, resolved Acute Cystitis treated with abx s/p cardiac arrest /anoxic encephalopathy/vegetative state Acute anterior STEMI; status post PCI, s/p MRSA pneumonia/aspiration pneumonia, s/p full treatment, contact isolation Hypertension; monitor blood pressures and adjust medications as needed Aspiration pneumonia; sepsis; received full course of antibiotics Cardiogenic shock; off pressors, s/p trach and PEG, continue PEG feeds Severe Protein calorie malnutrition: Peg feeds and nutrition supplements DVT prophylaxis; Lovenox Continue current management Full CODE STATUS Poor prognosis family aware, Multiple family meetings in the past. S Family requests to continue full CODE STATUS Poor prognosis History Interval history: Still unresponsive Hospitalist Physical - Physical exam Narrative exam: Gen appearance: Not in acute distress, lying in bed HEENT:Normocephalic,atraumatic Neck: Tracheostomy to ventilator Lungs: Clear to auscultation bilaterally, no crackles , no wheeze Heart: S1 and S2 regular, no murmurs, rubs or gallop Abdomen: soft, non tender, non distended, normal bowel sounds Ext: No edema, no clubbing, no cyanosis Neuro: Unresponsive, does not follow commands - Constitutional Vitals: Temp Pulse Resp BP Pulse Ox 98.3 F 60 21 96/55 94 05/29/17 08:00 05/29/17 09:33 05/29/17 08:00 05/29/17 09:33 05/29/17 08:01 General appearance: Present: other (tracheostomy on vent) Results - Labs CBC & Chem 7: 05/29/17 04:37 05/29/17 04:37 Labs: Laboratory Last Values WBC 8.0 K/mm3 (4.5-11.0) 05/29/17 04:37 RBC 4.52 M/mm3 (3.65-5.03) 05/29/17 04:37 Hgb 13.6 gm/dl (11.8-15.2) 05/29/17 04:37 Hct 40.6 % (35.5-45.6) 05/29/17 04:37 MCV 90 fl (84-94) 05/29/17 04:37 MCH 30 pg (28-32) 05/29/17 04:37 MCHC 33 % (32-34) 05/29/17 04:37 RDW 15.5 % (13.2-15.2) H 05/29/17 04:37 Plt Count 222 K/mm3 (140-440) 05/29/17 04:37 Lymph % (Auto) 15.6 % (13.4-35.0) 05/17/17 03:45 Andrew % (Auto) 7.7 % (0.0-7.3) H 05/17/17 03:45 Eos % (Auto) 2.7 % (0.0-4.3) 05/17/17 03:45 Baso % (Auto) 0.3 % (0.0-1.8) 05/17/17 03:45 Lymph # 1.5 K/mm3 (1.2-5.4) 05/17/17 03:45 Andrew # 0.7 K/mm3 (0.0-0.8) 05/17/17 03:45 Eos # 0.3 K/mm3 (0.0-0.4) 05/17/17 03:45 Baso # 0.0 K/mm3 (0.0-0.1) 05/17/17 03:45 Add Manual Diff Complete 03/30/17 03:50 Total Counted 100 03/30/17 03:50 Seg Neutrophils % 73.7 % (40.0-70.0) H 05/17/17 03:45 Seg Neuts % (Manual) 65.0 % (40.0-70.0) 03/30/17 03:50 Band Neutrophils % 17.0 % 03/30/17 03:50 Lymphocytes % (Manual) 7.0 % (13.4-35.0) L 03/30/17 03:50 Reactive Lymphs % (Man) 0 % 03/30/17 03:50 Monocytes % (Manual) 7.0 % (0.0-7.3) 03/30/17 03:50 Eosinophils % (Manual) 0 % (0.0-4.3) 03/30/17 03:50 Basophils % (Manual) 0 % (0.0-1.8) 03/30/17 03:50 Metamyelocytes % 4.0 % 03/30/17 03:50 Myelocytes % 0 % 03/30/17 03:50 Promyelocytes % 0 % 03/30/17 03:50 Blast Cells % 0 % 03/30/17 03:50 Nucleated RBC % Not Reportable 03/30/17 03:50 Seg Neutrophils # 6.9 K/mm3 (1.8-7.7) 05/17/17 03:45 Seg Neutrophils # Man 12.7 K/mm3 (1.8-7.7) H 03/30/17 03:50 Band Neutrophils # 3.3 K/mm3 03/30/17 03:50 Lymphocytes # (Manual) 1.4 K/mm3 (1.2-5.4) 03/30/17 03:50 Abs React Lymphs (Man) 0.0 K/mm3 03/30/17 03:50 Monocytes # (Manual) 1.4 K/mm3 (0.0-0.8) H 03/30/17 03:50 Eosinophils # (Manual) 0.0 K/mm3 (0.0-0.4) 03/30/17 03:50 Basophils # (Manual) 0.0 K/mm3 (0.0-0.1) 03/30/17 03:50 Metamyelocytes # 0.8 K/mm3 03/30/17 03:50 Myelocytes # 0.0 K/mm3 03/30/17 03:50 Promyelocytes # 0.0 K/mm3 03/30/17 03:50 Blast Cells # 0.0 K/mm3 03/30/17 03:50 WBC Morphology Not Reportable 03/30/17 03:50 Hypersegmented Neuts Not Reportable 03/30/17 03:50 Hyposegmented Neuts Not Reportable 03/30/17 03:50 Hypogranular Neuts Not Reportable 03/30/17 03:50 Smudge Cells Not Reportable 03/30/17 03:50 Toxic Granulation Not Reportable 03/30/17 03:50 Toxic Vacuolation Not Reportable 03/30/17 03:50 Dohle Bodies Not Reportable 03/30/17 03:50 Pelger-Huet Anomaly Not Reportable 03/30/17 03:50 Sherry Rods Not Reportable 03/30/17 03:50 Platelet Estimate Appears normal 03/30/17 03:50 Clumped Platelets Not Reportable 03/30/17 03:50 Plt Clumps, EDTA Not Reportable 03/30/17 03:50 Large Platelets Not Reportable 03/30/17 03:50 Giant Platelets Not Reportable 03/30/17 03:50 Platelet Satelliting Not Reportable 03/30/17 03:50 Plt Morphology Comment Not Reportable 03/30/17 03:50 RBC Morphology Not Reportable 03/30/17 03:50 Dimorphic RBCs Not Reportable 03/30/17 03:50 Polychromasia Not Reportable 03/30/17 03:50 Hypochromasia Not Reportable 03/30/17 03:50 Poikilocytosis Not Reportable 03/30/17 03:50 Anisocytosis Few 03/30/17 03:50 Microcytosis Not Reportable 03/30/17 03:50 Macrocytosis Not Reportable 03/30/17 03:50 Spherocytes Not Reportable 03/30/17 03:50 Pappenheimer Bodies Not Reportable 03/30/17 03:50 Sickle Cells Not Reportable 03/30/17 03:50 Target Cells Not Reportable 03/30/17 03:50 Tear Drop Cells Not Reportable 03/30/17 03:50 Ovalocytes Not Reportable 03/30/17 03:50 Helmet Cells Not Reportable 03/30/17 03:50 Tamayo-[place] Bodies Not Reportable 03/30/17 03:50 [place] Rings Not Reportable 03/30/17 03:50 Nusrat Cells Not Reportable 03/30/17 03:50 Bite Cells Not Reportable 03/30/17 03:50 Crenated Cell Not Reportable 03/30/17 03:50 Elliptocytes Not Reportable 03/30/17 03:50 Acanthocytes (Spur) Not Reportable 03/30/17 03:50 Rouleaux Not Reportable 03/30/17 03:50 Hemoglobin C Crystals Not Reportable 03/30/17 03:50 Schistocytes Not Reportable 03/30/17 03:50 Malaria parasites Not Reportable 03/30/17 03:50 Jermaine Bodies Not Reportable 03/30/17 03:50 Hem Pathologist Commnt No 03/30/17 03:50 PT 14.9 Sec. (12.2-14.9) 04/10/17 04:16 INR 1.11 (0.87-1.13) 04/10/17 04:16 APTT 27.8 Sec. (24.2-36.6) 04/10/17 04:16 Activated Clotting Time 92 (74-137) 03/29/17 17:47 POC ABG pH 7.524 (7.35-7.45) H 05/09/17 04:19 POC ABG pCO2 34.7 (35-45) L 05/09/17 04:19 POC ABG pO2 107 (80-105) H 05/09/17 04:19 POC ABG HCO3 28.6 05/09/17 04:19 POC ABG Total CO2 30 05/09/17 04:19 POC ABG O2 Sat 99 05/09/17 04:19 POC ABG Base Excess 6 05/09/17 04:19 FiO2 25 % 05/09/17 04:19 Sodium 138 mmol/L (137-145) 05/29/17 04:37 Potassium 4.2 mmol/L (3.6-5.0) 05/29/17 04:37 Chloride 97.6 mmol/L (98-107) L 05/29/17 04:37 Carbon Dioxide 23 mmol/L (22-30) 05/29/17 04:37 Anion Gap 22 mmol/L 05/29/17 04:37 BUN 14 mg/dL (9-20) 05/29/17 04:37 Creatinine 0.2 mg/dL (0.8-1.5) L 05/29/17 04:37 Estimated GFR > 60 ml/min 05/29/17 04:37 BUN/Creatinine Ratio 70 % 05/29/17 04:37 Glucose 121 mg/dL (75-100) H 05/29/17 04:37 POC Glucose 95 (70-105) 05/28/17 05:51 Calcium 9.5 mg/dL (8.4-10.2) 05/29/17 04:37 Phosphorus 3.50 mg/dL (2.5-4.5) 04/13/17 04:45 Magnesium 1.80 mg/dL (1.7-2.3) 05/01/17 05:30 Total Bilirubin 0.60 mg/dL (0.1-1.2) 05/01/17 05:30 Direct Bilirubin < 0.2 mg/dL (0-0.2) 04/27/17 05:40 Indirect Bilirubin 0.3 mg/dL 04/25/17 04:51 AST 71 units/L (5-40) H 05/01/17 05:30 ALT 125 units/L (7-56) H 05/01/17 05:30 Alkaline Phosphatase 158 units/L (35-129) H 05/01/17 05:30 Total Creatine Kinase 1404 units/L (55-170) H 04/12/17 21:36 CK-MB (CK-2) 8.0 ng/mL (0.0-4.0) H 04/12/17 21:36 CK-MB (CK-2) Rel Index 0.5 (0-4) 04/12/17 21:36 Troponin T 0.767 ng/mL (0.00-0.029) H* 04/12/17 21:36 C-Reactive Protein 21.80 mg/dL (0.00-1.30) H 03/30/17 16:04 Total Protein 6.7 g/dL (6.3-8.2) 05/01/17 05:30 Albumin 2.6 g/dL (3.9-5) L 05/01/17 05:30 Albumin/Globulin Ratio 0.6 % 05/01/17 05:30 Triglycerides 151 mg/dL (2-149) H 04/01/17 04:29 Cholesterol 164 mg/dL (50-199) 03/29/17 19:52 LDL Cholesterol Direct 81 mg/dL (50-130) 03/29/17 19:52 HDL Cholesterol 44 mg/dL (40-59) 03/29/17 19:52 Cholesterol/HDL Ratio 3.72 % 03/29/17 19:52 Urine Color [place] (Yellow) 04/21/17 22:00 Urine Turbidity Clear (Clear) 04/21/17 22:00 Urine pH 5.0 (5.0-7.0) 04/21/17 22:00 Ur Specific [place] 1.029 (1.003-1.030) 04/21/17 22:00 Urine Protein 30 mg/dl mg/dL (Negative) 04/21/17 22:00 Urine Glucose (UA) Neg mg/dL (Negative) 04/21/17 22:00 Urine Ketones Neg mg/dL (Negative) 04/21/17 22:00 Urine Blood Mod (Negative) 04/21/17 22:00 Urine Nitrite Neg (Negative) 04/21/17 22:00 Urine Bilirubin Neg (Negative) 04/21/17 22:00 Urine Urobilinogen 4.0 mg/dL (<2.0) 04/21/17 22:00 Ur Leukocyte Esterase Neg (Negative) 04/21/17 22:00 Urine WBC (Auto) 10.0 /HPF (0.0-6.0) H 04/21/17 22:00 Urine RBC (Auto) 44.0 /HPF (0.0-6.0) 04/21/17 22:00 U Epithel Cells (Auto) < 1.0 /HPF (0-13.0) 04/21/17 22:00 Amorphous Crystals 1+ 03/30/17 09:45 Urine Mucus 3+ /HPF 04/21/17 22:00 Urine Opiates Screen Presumptive negative 03/30/17 09:45 Urine Methadone Screen Presumptive negative 03/30/17 09:45 Ur Barbiturates Screen Presumptive negative 03/30/17 09:45 Ur Phencyclidine Scrn Presumptive negative 03/30/17 09:45 Ur Amphetamines Screen Presumptive positive 03/30/17 09:45 U Benzodiazepines Scrn Presumptive positive 03/30/17 09:45 Urine Cocaine Screen Presumptive negative 03/30/17 09:45 U Marijuana (THC) Screen Presumptive negative 03/30/17 09:45 Drugs of Abuse Note Disclamer 03/30/17 09:45 Miscellaneous Test Flexitest 1 H 04/25/17 07:07 Blood Type O POSITIVE 03/29/17 11:35 Antibody Screen Negative 03/29/17 11:35
[2017-05-29] MEDS: TRANSDERM-SCOP TD SCH (14:03)
--- NOTE | 2017-05-30 09:48 | Progress Note ---
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 No new recommendations for today. Patient remains full code and will continue PSV as tolerated with hopes of weaning to T-piece. He continues to have Apnea and fails PSV trials. Family has been made aware of this. 1. PSV as tolerated with a goal to get to T-piece 2. Once tolerates T-piece for 24 hours, can consider transfer to floor, this is highly unlikely. 3. reviewed neurology note and agree with assessment 4. Continue all other cardiac meds 5. Overall prognosis still remains poor given amount of downtime during arrest. 6. Family meeting held, they feel the patient will overcome this current state as they have had other family members do the same. Very in depth conversation about the prognosis and current clinical state. I've made my best attempt to help them understand. Neuro agrees. Will continue supportive measures and attempt to wean. CCT 31 minutes. Subjective Date of service: 05/30/17 Principal diagnosis: coma,ARV,s/p arrest Interval history: No acute events overnight. Mental status is not changed. Objective Vital Signs - 12hr 05/29/17 05/29/17 05/29/17 21:57 22:00 23:00 Temperature Pulse Rate 76 77 79 Respiratory Rate Blood Pressure 104/67 108/70 111/71 O2 Sat by Pulse 100 98 Oximetry O2 Sat by Pulse Oximetry [ Assessment] 05/29/17 05/29/17 05/29/17 23:20 23:23 23:55 Temperature 98.6 F Pulse Rate 81 Respiratory Rate Blood Pressure 111/71 O2 Sat by Pulse 98 Oximetry O2 Sat by Pulse 99 Oximetry [ Assessment] 05/30/17 05/30/17 05/30/17 00:00 01:00 02:00 Temperature Pulse Rate 64 73 73 Respiratory 16 Rate Blood Pressure 97/58 114/72 113/70 O2 Sat by Pulse 97 95 95 Oximetry O2 Sat by Pulse Oximetry [ Assessment] 05/30/17 05/30/17 05/30/17 03:00 03:21 04:00 Temperature 98.5 F Pulse Rate 76 69 75 Respiratory 25 H 23 Rate Blood Pressure 109/67 111/71 92/48 O2 Sat by Pulse 98 97 98 Oximetry O2 Sat by Pulse Oximetry [ Assessment] 05/30/17 05/30/17 05/30/17 05:00 06:00 08:00 Temperature 98.7 F Pulse Rate 80 83 Respiratory 23 22 Rate Blood Pressure 106/69 101/57 O2 Sat by Pulse 97 97 Oximetry O2 Sat by Pulse Oximetry [ Assessment] 05/30/17 05/30/17 05/30/17 09:21 09:23 09:26 Temperature Pulse Rate 68 72 Respiratory 13 Rate Blood Pressure 107/71 107/71 O2 Sat by Pulse 99 99 Oximetry O2 Sat by Pulse 99 Oximetry [ Assessment] Constitutional: no acute distress, comatose Eyes: non-icteric ENT: oropharynx moist Neck: supple, other (tracheotomy ) Effort: normal Ascultation: Bilateral: clear, diminished breath sounds, other (coarse BS bilaterally) Percussion: Bilateral: not dull Cardiovascular: regular rate and rhythm Gastrointestinal: normoactive bowel sounds, soft, non-tender, non-distended Integumentary: normal Extremities: no cyanosis, no edema, pink and warm Neurologic: other (nonresponsive with flaccid extremities) Psychiatric: other (eyes open spontaneously but does not follow any voice commands, otherwise nonresponsive except for pain) CBC and BMP: 05/29/17 04:37 05/29/17 04:37 ABG, PT/INR, D-dimer: ABG POC ABG pH 7.524 (7.35-7.45) H 05/09/17 04:19 POC ABG pCO2 34.7 (35-45) L 05/09/17 04:19 POC ABG pO2 107 (80-105) H 05/09/17 04:19 POC ABG HCO3 28.6 05/09/17 04:19 POC ABG Total CO2 30 05/09/17 04:19 POC ABG O2 Sat 99 05/09/17 04:19 PT/INR, D-dimer PT 14.9 Sec. (12.2-14.9) 04/10/17 04:16 INR 1.11 (0.87-1.13) 04/10/17 04:16 Abnormal lab findings: Abnormal Labs 03/29/17 03/29/17 03/29/17 11:35 11:35 11:40 WBC RBC Hgb Hct MCV 98 H MCH 33 H RDW Plt Count Lymph % (Auto) [place] % (Auto) Eos % (Auto) Baso % (Auto) Lymph # Baso # Seg Neutrophils % Lymphocytes % (Manual) Monocytes % (Manual) 9.0 H Nucleated RBC % 1.0 H Seg Neutrophils # Seg Neutrophils # Man Monocytes # (Manual) 0.9 H PT 15.8 H INR 1.20 H Activated Clotting Time POC ABG pH POC ABG pCO2 POC ABG pO2 Sodium Potassium 2.7 L* Chloride 95.3 L Carbon Dioxide 17 L BUN Creatinine Glucose 435 H POC Glucose Calcium Magnesium Direct Bilirubin AST ALT Alkaline Phosphatase Total Creatine Kinase CK-MB (CK-2) CK-MB (CK-2) Rel Index Troponin T C-Reactive Protein Total Protein 6.1 L Albumin 3.5 L Triglycerides Ur Specific [place] Urine WBC (Auto) Miscellaneous Test 03/29/17 03/29/17 03/29/17 12:34 13:10 13:25 WBC RBC Hgb Hct MCV MCH RDW Plt Count Lymph % (Auto) [place] % (Auto) Eos % (Auto) Baso % (Auto) Lymph # Baso # Seg Neutrophils % Lymphocytes % (Manual) Monocytes % (Manual) Nucleated RBC % Seg Neutrophils # Seg Neutrophils # Man Monocytes # (Manual) PT INR Activated Clotting Time 142 H 169 H 175 H POC ABG pH POC ABG pCO2 POC ABG pO2 Sodium Potassium Chloride Carbon Dioxide BUN Creatinine Glucose POC Glucose Calcium Magnesium Direct Bilirubin AST ALT Alkaline Phosphatase Total Creatine Kinase CK-MB (CK-2) CK-MB (CK-2) Rel Index Troponin T C-Reactive Protein Total Protein Albumin Triglycerides Ur Specific [place] Urine WBC (Auto) Miscellaneous Test 03/29/17 03/29/17 03/29/17 14:50 15:18 19:52 WBC RBC Hgb Hct MCV MCH RDW Plt Count Lymph % (Auto) [place] % (Auto) Eos % (Auto) Baso % (Auto) Lymph # Baso # Seg Neutrophils % Lymphocytes % (Manual) Monocytes % (Manual) Nucleated RBC % Seg Neutrophils # Seg Neutrophils # Man Monocytes # (Manual) PT INR Activated Clotting Time 175 H POC ABG pH 7.293 L POC ABG pCO2 POC ABG pO2 602 H Sodium Potassium Chloride Carbon Dioxide BUN Creatinine Glucose POC Glucose Calcium Magnesium Direct Bilirubin AST ALT Alkaline Phosphatase Total Creatine Kinase 7263 H CK-MB (CK-2) > 300.0 H CK-MB (CK-2) Rel Index 4.1 H Troponin T 8.080 H* D C-Reactive Protein Total Protein Albumin Triglycerides 195 H Ur Specific [place] Urine WBC (Auto) Miscellaneous Test 03/30/17 03/30/17 03/30/17 03:50 03:50 06:19 WBC 19.5 H RBC Hgb Hct MCV MCH RDW Plt Count Lymph % (Auto) [place] % (Auto) Eos % (Auto) Baso % (Auto) Lymph # Baso # Seg Neutrophils % Lymphocytes % (Manual) 7.0 L Monocytes % (Manual) Nucleated RBC % Seg Neutrophils # Seg Neutrophils # Man 12.7 H Monocytes # (Manual) 1.4 H PT INR Activated Clotting Time POC ABG pH POC ABG pCO2 28.2 L POC ABG pO2 108 H Sodium Potassium Chloride 108.9 H Carbon Dioxide 15 L BUN 25 H Creatinine Glucose 158 H POC Glucose Calcium 8.1 L Magnesium Direct Bilirubin AST ALT Alkaline Phosphatase Total Creatine Kinase 7963 H CK-MB (CK-2) > 300.0 H CK-MB (CK-2) Rel Index Troponin T 6.850 H* C-Reactive Protein Total Protein Albumin Triglycerides Ur Specific [place] Urine WBC (Auto) Miscellaneous Test 03/30/17 03/30/17 03/31/17 09:45 16:04 02:19 WBC RBC Hgb Hct MCV MCH RDW Plt Count Lymph % (Auto) [place] % (Auto) Eos % (Auto) Baso % (Auto) Lymph # Baso # Seg Neutrophils % Lymphocytes % (Manual) Monocytes % (Manual) Nucleated RBC % Seg Neutrophils # Seg Neutrophils # Man Monocytes # (Manual) PT INR Activated Clotting Time POC ABG pH POC ABG pCO2 POC ABG pO2 Sodium Potassium Chloride Carbon Dioxide BUN Creatinine Glucose POC Glucose 137 H Calcium Magnesium Direct Bilirubin AST ALT Alkaline Phosphatase Total Creatine Kinase CK-MB (CK-2) CK-MB (CK-2) Rel Index Troponin T C-Reactive Protein 21.80 H Total Protein Albumin Triglycerides Ur Specific [place] 1.031 H Urine WBC (Auto) Miscellaneous Test 03/31/17 03/31/17 03/31/17 03:57 06:54 09:22 WBC RBC Hgb Hct MCV MCH RDW Plt Count Lymph % (Auto) [place] % (Auto) Eos % (Auto) Baso % (Auto) Lymph # Baso # Seg Neutrophils % Lymphocytes % (Manual) Monocytes % (Manual) Nucleated RBC % Seg Neutrophils # Seg Neutrophils # Man Monocytes # (Manual) PT INR Activated Clotting Time POC ABG pH 7.475 H POC ABG pCO2 25.4 L POC ABG pO2 62 L Sodium Potassium Chloride Carbon Dioxide 19 L BUN 22 H Creatinine 0.6 L Glucose 148 H POC Glucose 143 H Calcium 8.3 L Magnesium Direct Bilirubin AST ALT Alkaline Phosphatase Total Creatine Kinase CK-MB (CK-2) CK-MB (CK-2) Rel Index Troponin T C-Reactive Protein Total Protein Albumin Triglycerides Ur Specific [place] Urine WBC (Auto) Miscellaneous Test 03/31/17 03/31/17 03/31/17 11:40 17:47 23:38 WBC RBC Hgb Hct MCV MCH RDW Plt Count Lymph % (Auto) [place] % (Auto) Eos % (Auto) Baso % (Auto) Lymph # Baso # Seg Neutrophils % Lymphocytes % (Manual) Monocytes % (Manual) Nucleated RBC % Seg Neutrophils # Seg Neutrophils # Man Monocytes # (Manual) PT INR Activated Clotting Time POC ABG pH POC ABG pCO2 POC ABG pO2 Sodium Potassium Chloride Carbon Dioxide BUN Creatinine Glucose POC Glucose 127 H 137 H 148 H Calcium Magnesium Direct Bilirubin AST ALT Alkaline Phosphatase Total Creatine Kinase CK-MB (CK-2) CK-MB (CK-2) Rel Index Troponin T C-Reactive Protein Total Protein Albumin Triglycerides Ur Specific [place] Urine WBC (Auto) Miscellaneous Test 04/01/17 04/01/17 04/01/17 04:29 05:01 11:54 WBC RBC Hgb Hct MCV MCH RDW Plt Count Lymph % (Auto) [place] % (Auto) Eos % (Auto) Baso % (Auto) Lymph # Baso # Seg Neutrophils % Lymphocytes % (Manual) Monocytes % (Manual) Nucleated RBC % Seg Neutrophils # Seg Neutrophils # Man Monocytes # (Manual) PT INR Activated Clotting Time POC ABG pH 7.513 H POC ABG pCO2 22.1 L POC ABG pO2 64 L Sodium Potassium Chloride Carbon Dioxide BUN Creatinine Glucose POC Glucose 121 H Calcium Magnesium Direct Bilirubin AST ALT Alkaline Phosphatase Total Creatine Kinase CK-MB (CK-2) CK-MB (CK-2) Rel Index Troponin T C-Reactive Protein Total Protein Albumin Triglycerides 151 H Ur Specific [place] Urine WBC (Auto) Miscellaneous Test 04/01/17 04/02/17 04/02/17 18:17 00:11 04:52 WBC RBC Hgb Hct MCV MCH RDW Plt Count Lymph % (Auto) [place] % (Auto) Eos % (Auto) Baso % (Auto) Lymph # Baso # Seg Neutrophils % Lymphocytes % (Manual) Monocytes % (Manual) Nucleated RBC % Seg Neutrophils # Seg Neutrophils # Man Monocytes # (Manual) PT INR Activated Clotting Time POC ABG pH 7.524 H POC ABG pCO2 25.5 L POC ABG pO2 66 L Sodium Potassium Chloride Carbon Dioxide BUN Creatinine Glucose POC Glucose 117 H 122 H Calcium Magnesium Direct Bilirubin AST ALT Alkaline Phosphatase Total Creatine Kinase CK-MB (CK-2) CK-MB (CK-2) Rel Index Troponin T C-Reactive Protein Total Protein Albumin Triglycerides Ur Specific [place] Urine WBC (Auto) Miscellaneous Test 04/02/17 04/02/17 04/02/17 05:18 10:41 12:19 WBC RBC Hgb Hct MCV MCH RDW Plt Count Lymph % (Auto) [place] % (Auto) Eos % (Auto) Baso % (Auto) Lymph # Baso # Seg Neutrophils % Lymphocytes % (Manual) Monocytes % (Manual) Nucleated RBC % Seg Neutrophils # Seg Neutrophils # Man Monocytes # (Manual) PT INR Activated Clotting Time POC ABG pH 7.534 H POC ABG pCO2 27.4 L POC ABG pO2 Sodium Potassium Chloride Carbon Dioxide BUN Creatinine Glucose POC Glucose 132 H 129 H Calcium Magnesium Direct Bilirubin AST ALT Alkaline Phosphatase Total Creatine Kinase CK-MB (CK-2) CK-MB (CK-2) Rel Index Troponin T C-Reactive Protein Total Protein Albumin Triglycerides Ur Specific [place] Urine WBC (Auto) Miscellaneous Test 04/02/17 04/03/17 04/03/17 18:05 00:08 05:09 WBC RBC Hgb Hct MCV MCH RDW Plt Count Lymph % (Auto) [place] % (Auto) Eos % (Auto) Baso % (Auto) Lymph # Baso # Seg Neutrophils % Lymphocytes % (Manual) Monocytes % (Manual) Nucleated RBC % Seg Neutrophils # Seg Neutrophils # Man Monocytes # (Manual) PT INR Activated Clotting Time POC ABG pH 7.455 H POC ABG pCO2 33.2 L POC ABG pO2 120 H Sodium Potassium Chloride Carbon Dioxide BUN Creatinine Glucose POC Glucose 136 H 128 H Calcium Magnesium Direct Bilirubin AST ALT Alkaline Phosphatase Total Creatine Kinase CK-MB (CK-2) CK-MB (CK-2) Rel Index Troponin T C-Reactive Protein Total Protein Albumin Triglycerides Ur Specific [place] Urine WBC (Auto) Miscellaneous Test 04/03/17 04/03/17 04/03/17 06:32 11:54 12:16 WBC 11.9 H RBC Hgb Hct MCV MCH RDW Plt Count 125 L Lymph % (Auto) 4.8 L [place] % (Auto) Eos % (Auto) Baso % (Auto) Lymph # 0.6 L Baso # Seg Neutrophils % 86.7 H Lymphocytes % (Manual) Monocytes % (Manual) Nucleated RBC % Seg Neutrophils # 10.3 H Seg Neutrophils # Man Monocytes # (Manual) PT INR Activated Clotting Time POC ABG pH POC ABG pCO2 POC ABG pO2 Sodium Potassium Chloride Carbon Dioxide BUN Creatinine Glucose POC Glucose 138 H 143 H Calcium Magnesium Direct Bilirubin AST ALT Alkaline Phosphatase Total Creatine Kinase CK-MB (CK-2) CK-MB (CK-2) Rel Index Troponin T C-Reactive Protein Total Protein Albumin Triglycerides Ur Specific [place] Urine WBC (Auto) Miscellaneous Test 04/03/17 04/03/17 04/04/17 17:33 23:59 04:34 WBC RBC Hgb Hct MCV MCH RDW Plt Count Lymph % (Auto) [place] % (Auto) Eos % (Auto) Baso % (Auto) Lymph # Baso # Seg Neutrophils % Lymphocytes % (Manual) Monocytes % (Manual) Nucleated RBC % Seg Neutrophils # Seg Neutrophils # Man Monocytes # (Manual) PT INR Activated Clotting Time POC ABG pH 7.457 H POC ABG pCO2 29.8 L POC ABG pO2 76 L Sodium Potassium Chloride Carbon Dioxide BUN Creatinine Glucose POC Glucose 130 H 155 H Calcium Magnesium Direct Bilirubin AST ALT Alkaline Phosphatase Total Creatine Kinase CK-MB (CK-2) CK-MB (CK-2) Rel Index Troponin T C-Reactive Protein Total Protein Albumin Triglycerides Ur Specific [place] Urine WBC (Auto) Miscellaneous Test 04/04/17 04/04/17 04/04/17 05:27 12:22 18:18 WBC RBC Hgb Hct MCV MCH RDW Plt Count Lymph % (Auto) [place] % (Auto) Eos % (Auto) Baso % (Auto) Lymph # Baso # Seg Neutrophils % Lymphocytes % (Manual) Monocytes % (Manual) Nucleated RBC % Seg Neutrophils # Seg Neutrophils # Man Monocytes # (Manual) PT INR Activated Clotting Time POC ABG pH POC ABG pCO2 POC ABG pO2 Sodium Potassium Chloride Carbon Dioxide BUN Creatinine Glucose POC Glucose 164 H 146 H 130 H Calcium Magnesium Direct Bilirubin AST ALT Alkaline Phosphatase Total Creatine Kinase CK-MB (CK-2) CK-MB (CK-2) Rel Index Troponin T C-Reactive Protein Total Protein Albumin Triglycerides Ur Specific [place] Urine WBC (Auto) Miscellaneous Test 04/05/17 04/05/17 04/05/17 04:43 05:28 11:36 WBC RBC Hgb Hct MCV MCH RDW Plt Count Lymph % (Auto) [place] % (Auto) Eos % (Auto) Baso % (Auto) Lymph # Baso # Seg Neutrophils % Lymphocytes % (Manual) Monocytes % (Manual) Nucleated RBC % Seg Neutrophils # Seg Neutrophils # Man Monocytes # (Manual) PT INR Activated Clotting Time POC ABG pH 7.479 H POC ABG pCO2 33.5 L POC ABG pO2 76 L Sodium Potassium Chloride Carbon Dioxide BUN Creatinine Glucose POC Glucose 145 H 136 H Calcium Magnesium Direct Bilirubin AST ALT Alkaline Phosphatase Total Creatine Kinase CK-MB (CK-2) CK-MB (CK-2) Rel Index Troponin T C-Reactive Protein Total Protein Albumin Triglycerides Ur Specific [place] Urine WBC (Auto) Miscellaneous Test 04/05/17 04/06/17 04/06/17 17:58 00:16 05:26 WBC RBC Hgb Hct MCV MCH RDW Plt Count Lymph % (Auto) [place] % (Auto) Eos % (Auto) Baso % (Auto) Lymph # Baso # Seg Neutrophils % Lymphocytes % (Manual) Monocytes % (Manual) Nucleated RBC % Seg Neutrophils # Seg Neutrophils # Man Monocytes # (Manual) PT INR Activated Clotting Time POC ABG pH POC ABG pCO2 POC ABG pO2 Sodium Potassium Chloride Carbon Dioxide BUN Creatinine Glucose POC Glucose 130 H 159 H 146 H Calcium Magnesium Direct Bilirubin AST ALT Alkaline Phosphatase Total Creatine Kinase CK-MB (CK-2) CK-MB (CK-2) Rel Index Troponin T C-Reactive Protein Total Protein Albumin Triglycerides Ur Specific [place] Urine WBC (Auto) Miscellaneous Test 04/06/17 04/06/17 04/07/17 13:11 16:54 11:45 WBC RBC Hgb Hct MCV MCH RDW Plt Count Lymph % (Auto) [place] % (Auto) Eos % (Auto) Baso % (Auto) Lymph # Baso # Seg Neutrophils % Lymphocytes % (Manual) Monocytes % (Manual) Nucleated RBC % Seg Neutrophils # Seg Neutrophils # Man Monocytes # (Manual) PT INR Activated Clotting Time POC ABG pH 7.517 H POC ABG pCO2 32.1 L POC ABG pO2 Sodium Potassium Chloride Carbon Dioxide BUN Creatinine Glucose POC Glucose 132 H 123 H Calcium Magnesium Direct Bilirubin AST ALT Alkaline Phosphatase Total Creatine Kinase CK-MB (CK-2) CK-MB (CK-2) Rel Index Troponin T C-Reactive Protein Total Protein Albumin Triglycerides Ur Specific [place] Urine WBC (Auto) Miscellaneous Test 04/07/17 04/07/17 04/07/17 12:51 17:40 23:55 WBC RBC Hgb Hct MCV MCH RDW Plt Count Lymph % (Auto) [place] % (Auto) Eos % (Auto) Baso % (Auto) Lymph # Baso # Seg Neutrophils % Lymphocytes % (Manual) Monocytes % (Manual) Nucleated RBC % Seg Neutrophils # Seg Neutrophils # Man Monocytes # (Manual) PT INR Activated Clotting Time POC ABG pH POC ABG pCO2 POC ABG pO2 Sodium Potassium Chloride Carbon Dioxide BUN Creatinine Glucose POC Glucose 138 H 154 H 143 H Calcium Magnesium Direct Bilirubin AST ALT Alkaline Phosphatase Total Creatine Kinase CK-MB (CK-2) CK-MB (CK-2) Rel Index Troponin T C-Reactive Protein Total Protein Albumin Triglycerides Ur Specific [place] Urine WBC (Auto) Miscellaneous Test 04/08/17 04/08/17 04/08/17 05:27 11:14 17:44 WBC RBC Hgb Hct MCV MCH RDW Plt Count Lymph % (Auto) [place] % (Auto) Eos % (Auto) Baso % (Auto) Lymph # Baso # Seg Neutrophils % Lymphocytes % (Manual) Monocytes % (Manual) Nucleated RBC % Seg Neutrophils # Seg Neutrophils # Man Monocytes # (Manual) PT INR Activated Clotting Time POC ABG pH POC ABG pCO2 POC ABG pO2 Sodium Potassium Chloride Carbon Dioxide BUN Creatinine Glucose POC Glucose 142 H 153 H 129 H Calcium Magnesium Direct Bilirubin AST ALT Alkaline Phosphatase Total Creatine Kinase CK-MB (CK-2) CK-MB (CK-2) Rel Index Troponin T C-Reactive Protein Total Protein Albumin Triglycerides Ur Specific [place] Urine WBC (Auto) Miscellaneous Test 04/09/17 04/09/17 04/09/17 08:20 11:21 17:37 WBC RBC Hgb Hct MCV MCH RDW Plt Count Lymph % (Auto) [place] % (Auto) Eos % (Auto) Baso % (Auto) Lymph # Baso # Seg Neutrophils % Lymphocytes % (Manual) Monocytes % (Manual) Nucleated RBC % Seg Neutrophils # Seg Neutrophils # Man Monocytes # (Manual) PT INR Activated Clotting Time POC ABG pH POC ABG pCO2 POC ABG pO2 Sodium 147 H Potassium Chloride 108.8 H Carbon Dioxide BUN 39 H Creatinine 0.5 L Glucose 138 H POC Glucose 152 H 109 H Calcium Magnesium Direct Bilirubin AST ALT Alkaline Phosphatase Total Creatine Kinase CK-MB (CK-2) CK-MB (CK-2) Rel Index Troponin T C-Reactive Protein Total Protein Albumin Triglycerides Ur Specific [place] Urine WBC (Auto) Miscellaneous Test 04/10/17 04/10/17 04/10/17 00:13 04:16 04:16 WBC RBC Hgb 11.5 L Hct MCV 96 H MCH RDW Plt Count 103 L Lymph % (Auto) 11.1 L [place] % (Auto) Eos % (Auto) Baso % (Auto) Lymph # Baso # Seg Neutrophils % 81.5 H Lymphocytes % (Manual) Monocytes % (Manual) Nucleated RBC % Seg Neutrophils # 8.8 H Seg Neutrophils # Man Monocytes # (Manual) PT INR Activated Clotting Time POC ABG pH POC ABG pCO2 POC ABG pO2 Sodium 148 H Potassium Chloride 109.0 H Carbon Dioxide BUN 36 H Creatinine 0.5 L Glucose 131 H POC Glucose 127 H Calcium 8.1 L Magnesium 2.40 H Direct Bilirubin AST 206 H ALT 228 H Alkaline Phosphatase 178 H Total Creatine Kinase CK-MB (CK-2) CK-MB (CK-2) Rel Index Troponin T C-Reactive Protein Total Protein Albumin 2.8 L Triglycerides Ur Specific [place] Urine WBC (Auto) Miscellaneous Test 04/10/17 04/10/17 04/10/17 06:01 11:57 18:27 WBC RBC Hgb Hct MCV MCH RDW Plt Count Lymph % (Auto) [place] % (Auto) Eos % (Auto) Baso % (Auto) Lymph # Baso # Seg Neutrophils % Lymphocytes % (Manual) Monocytes % (Manual) Nucleated RBC % Seg Neutrophils # Seg Neutrophils # Man Monocytes # (Manual) PT INR Activated Clotting Time POC ABG pH POC ABG pCO2 POC ABG pO2 Sodium Potassium Chloride Carbon Dioxide BUN Creatinine Glucose POC Glucose 108 H 154 H 130 H Calcium Magnesium Direct Bilirubin AST ALT Alkaline Phosphatase Total Creatine Kinase CK-MB (CK-2) CK-MB (CK-2) Rel Index Troponin T C-Reactive Protein Total Protein Albumin Triglycerides Ur Specific [place] Urine WBC (Auto) Miscellaneous Test 04/11/17 04/11/17 04/12/17 12:25 17:10 00:22 WBC RBC Hgb Hct MCV MCH RDW Plt Count Lymph % (Auto) [place] % (Auto) Eos % (Auto) Baso % (Auto) Lymph # Baso # Seg Neutrophils % Lymphocytes % (Manual) Monocytes % (Manual) Nucleated RBC % Seg Neutrophils # Seg Neutrophils # Man Monocytes # (Manual) PT INR Activated Clotting Time POC ABG pH POC ABG pCO2 POC ABG pO2 Sodium Potassium Chloride Carbon Dioxide BUN Creatinine Glucose POC Glucose 107 H 129 H 128 H Calcium Magnesium Direct Bilirubin AST ALT Alkaline Phosphatase Total Creatine Kinase CK-MB (CK-2) CK-MB (CK-2) Rel Index Troponin T C-Reactive Protein Total Protein Albumin Triglycerides Ur Specific [place] Urine WBC (Auto) Miscellaneous Test 04/12/17 04/12/17 04/12/17 05:00 11:57 17:47 WBC RBC Hgb Hct MCV MCH RDW Plt Count Lymph % (Auto) [place] % (Auto) Eos % (Auto) Baso % (Auto) Lymph # Baso # Seg Neutrophils % Lymphocytes % (Manual) Monocytes % (Manual) Nucleated RBC % Seg Neutrophils # Seg Neutrophils # Man Monocytes # (Manual) PT INR Activated Clotting Time POC ABG pH POC ABG pCO2 POC ABG pO2 Sodium Potassium Chloride Carbon Dioxide BUN Creatinine Glucose POC Glucose 140 H 142 H Calcium Magnesium Direct Bilirubin AST 158 H ALT 184 H Alkaline Phosphatase 170 H Total Creatine Kinase CK-MB (CK-2) CK-MB (CK-2) Rel Index Troponin T C-Reactive Protein Total Protein Albumin 2.8 L Triglycerides Ur Specific [place] Urine WBC (Auto) Miscellaneous Test 04/12/17 04/12/17 04/13/17 21:36 21:36 01:37 WBC RBC Hgb Hct MCV MCH RDW Plt Count Lymph % (Auto) [place] % (Auto) Eos % (Auto) Baso % (Auto) Lymph # Baso # Seg Neutrophils % Lymphocytes % (Manual) Monocytes % (Manual) Nucleated RBC % Seg Neutrophils # Seg Neutrophils # Man Monocytes # (Manual) PT INR Activated Clotting Time POC ABG pH POC ABG pCO2 POC ABG pO2 Sodium Potassium Chloride Carbon Dioxide BUN Creatinine Glucose POC Glucose 126 H Calcium Magnesium Direct Bilirubin AST ALT Alkaline Phosphatase Total Creatine Kinase 1404 H CK-MB (CK-2) 8.0 H CK-MB (CK-2) Rel Index Troponin T 0.767 H* C-Reactive Protein Total Protein Albumin Triglycerides Ur Specific [place] Urine WBC (Auto) Miscellaneous Test 04/13/17 04/13/17 04/13/17 04:45 04:52 12:17 WBC RBC Hgb Hct MCV MCH RDW Plt Count Lymph % (Auto) [place] % (Auto) Eos % (Auto) Baso % (Auto) Lymph # Baso # Seg Neutrophils % Lymphocytes % (Manual) Monocytes % (Manual) Nucleated RBC % Seg Neutrophils # Seg Neutrophils # Man Monocytes # (Manual) PT INR Activated Clotting Time POC ABG pH POC ABG pCO2 POC ABG pO2 Sodium 148 H Potassium Chloride 112.8 H Carbon Dioxide BUN 33 H Creatinine 0.4 L Glucose 121 H POC Glucose 126 H 149 H Calcium Magnesium Direct Bilirubin AST 160 H ALT 189 H Alkaline Phosphatase 166 H Total Creatine Kinase CK-MB (CK-2) CK-MB (CK-2) Rel Index Troponin T C-Reactive Protein Total Protein Albumin 2.6 L Triglycerides Ur Specific [place] Urine WBC (Auto) Miscellaneous Test 04/13/17 04/14/17 04/14/17 17:45 00:20 00:45 WBC RBC Hgb Hct MCV MCH RDW Plt Count Lymph % (Auto) [place] % (Auto) Eos % (Auto) Baso % (Auto) Lymph # Baso # Seg Neutrophils % Lymphocytes % (Manual) Monocytes % (Manual) Nucleated RBC % Seg Neutrophils # Seg Neutrophils # Man Monocytes # (Manual) PT INR Activated Clotting Time POC ABG pH POC ABG pCO2 POC ABG pO2 Sodium Potassium Chloride Carbon Dioxide BUN Creatinine Glucose POC Glucose 130 H 144 H 144 H Calcium Magnesium Direct Bilirubin AST ALT Alkaline Phosphatase Total Creatine Kinase CK-MB (CK-2) CK-MB (CK-2) Rel Index Troponin T C-Reactive Protein Total Protein Albumin Triglycerides Ur Specific [place] Urine WBC (Auto) Miscellaneous Test 04/14/17 04/14/17 04/14/17 05:40 11:06 11:31 WBC RBC Hgb Hct MCV MCH RDW Plt Count Lymph % (Auto) [place] % (Auto) Eos % (Auto) Baso % (Auto) Lymph # Baso # Seg Neutrophils % Lymphocytes % (Manual) Monocytes % (Manual) Nucleated RBC % Seg Neutrophils # Seg Neutrophils # Man Monocytes # (Manual) PT INR Activated Clotting Time POC ABG pH POC ABG pCO2 POC ABG pO2 Sodium Potassium Chloride Carbon Dioxide BUN Creatinine Glucose POC Glucose 139 H 123 H Calcium Magnesium Direct Bilirubin AST ALT Alkaline Phosphatase Total Creatine Kinase CK-MB (CK-2) CK-MB (CK-2) Rel Index Troponin T C-Reactive Protein Total Protein Albumin Triglycerides Ur Specific [place] 1.033 H Urine WBC (Auto) > 182.0 H Miscellaneous Test 04/14/17 04/14/17 04/15/17 18:00 23:52 05:15 WBC 12.5 H RBC 3.38 L Hgb 10.6 L Hct 32.7 L MCV 97 H MCH RDW Plt Count 107 L Lymph % (Auto) 8.7 L [place] % (Auto) Eos % (Auto) Baso % (Auto) Lymph # 1.1 L Baso # Seg Neutrophils % 86.1 H Lymphocytes % (Manual) Monocytes % (Manual) Nucleated RBC % Seg Neutrophils # 10.7 H Seg Neutrophils # Man Monocytes # (Manual) PT INR Activated Clotting Time POC ABG pH POC ABG pCO2 POC ABG pO2 Sodium Potassium Chloride Carbon Dioxide BUN Creatinine Glucose POC Glucose 133 H 133 H Calcium Magnesium Direct Bilirubin AST ALT Alkaline Phosphatase Total Creatine Kinase CK-MB (CK-2) CK-MB (CK-2) Rel Index Troponin T C-Reactive Protein Total Protein Albumin Triglycerides Ur Specific [place] Urine WBC (Auto) Miscellaneous Test 04/15/17 04/15/17 04/15/17 05:15 05:25 11:50 WBC RBC Hgb Hct MCV MCH RDW Plt Count Lymph % (Auto) [place] % (Auto) Eos % (Auto) Baso % (Auto) Lymph # Baso # Seg Neutrophils % Lymphocytes % (Manual) Monocytes % (Manual) Nucleated RBC % Seg Neutrophils # Seg Neutrophils # Man Monocytes # (Manual) PT INR Activated Clotting Time POC ABG pH POC ABG pCO2 POC ABG pO2 Sodium 149 H Potassium 3.5 L Chloride 114.1 H Carbon Dioxide 21 L BUN 29 H Creatinine 0.4 L Glucose 128 H POC Glucose 133 H 107 H Calcium 8.3 L Magnesium Direct Bilirubin 0.4 H AST 149 H ALT 182 H Alkaline Phosphatase 143 H Total Creatine Kinase CK-MB (CK-2) CK-MB (CK-2) Rel Index Troponin T C-Reactive Protein Total Protein Albumin 2.5 L Triglycerides Ur Specific [place] Urine WBC (Auto) Miscellaneous Test 04/15/17 04/16/17 04/16/17 16:55 00:02 03:17 WBC RBC 3.39 L Hgb 10.5 L Hct 32.4 L MCV 96 H MCH RDW Plt Count 106 L Lymph % (Auto) 6.7 L [place] % (Auto) Eos % (Auto) Baso % (Auto) Lymph # 0.6 L Baso # Seg Neutrophils % 86.8 H Lymphocytes % (Manual) Monocytes % (Manual) Nucleated RBC % Seg Neutrophils # 8.2 H Seg Neutrophils # Man Monocytes # (Manual) PT INR Activated Clotting Time POC ABG pH POC ABG pCO2 POC ABG pO2 Sodium Potassium Chloride Carbon Dioxide BUN Creatinine Glucose POC Glucose 146 H 148 H Calcium Magnesium Direct Bilirubin AST ALT Alkaline Phosphatase Total Creatine Kinase CK-MB (CK-2) CK-MB (CK-2) Rel Index Troponin T C-Reactive Protein Total Protein Albumin Triglycerides Ur Specific [place] Urine WBC (Auto) Miscellaneous Test 04/16/17 04/16/17 04/16/17 03:17 05:19 11:13 WBC RBC Hgb Hct MCV MCH RDW Plt Count Lymph % (Auto) [place] % (Auto) Eos % (Auto) Baso % (Auto) Lymph # Baso # Seg Neutrophils % Lymphocytes % (Manual) Monocytes % (Manual) Nucleated RBC % Seg Neutrophils # Seg Neutrophils # Man Monocytes # (Manual) PT INR Activated Clotting Time POC ABG pH POC ABG pCO2 POC ABG pO2 Sodium 149 H Potassium Chloride 111.1 H Carbon Dioxide 20 L BUN 27 H Creatinine 0.3 L Glucose 156 H POC Glucose 171 H 169 H Calcium 8.3 L Magnesium Direct Bilirubin AST ALT Alkaline Phosphatase Total Creatine Kinase CK-MB (CK-2) CK-MB (CK-2) Rel Index Troponin T C-Reactive Protein Total Protein Albumin Triglycerides Ur Specific [place] Urine WBC (Auto) Miscellaneous Test 04/16/17 04/17/17 04/17/17 17:03 00:00 05:09 WBC RBC Hgb Hct MCV MCH RDW Plt Count Lymph % (Auto) [place] % (Auto) Eos % (Auto) Baso % (Auto) Lymph # Baso # Seg Neutrophils % Lymphocytes % (Manual) Monocytes % (Manual) Nucleated RBC % Seg Neutrophils # Seg Neutrophils # Man Monocytes # (Manual) PT INR Activated Clotting Time POC ABG pH POC ABG pCO2 POC ABG pO2 Sodium Potassium Chloride Carbon Dioxide BUN Creatinine Glucose POC Glucose 151 H 165 H 145 H Calcium Magnesium Direct Bilirubin AST ALT Alkaline Phosphatase Total Creatine Kinase CK-MB (CK-2) CK-MB (CK-2) Rel Index Troponin T C-Reactive Protein Total Protein Albumin Triglycerides Ur Specific [place] Urine WBC (Auto) Miscellaneous Test 04/17/17 04/17/17 04/18/17 11:38 17:47 00:01 WBC RBC Hgb Hct MCV MCH RDW Plt Count Lymph % (Auto) [place] % (Auto) Eos % (Auto) Baso % (Auto) Lymph # Baso # Seg Neutrophils % Lymphocytes % (Manual) Monocytes % (Manual) Nucleated RBC % Seg Neutrophils # Seg Neutrophils # Man Monocytes # (Manual) PT INR Activated Clotting Time POC ABG pH POC ABG pCO2 POC ABG pO2 Sodium Potassium Chloride Carbon Dioxide BUN Creatinine Glucose POC Glucose 170 H 161 H 131 H Calcium Magnesium Direct Bilirubin AST ALT Alkaline Phosphatase Total Creatine Kinase CK-MB (CK-2) CK-MB (CK-2) Rel Index Troponin T C-Reactive Protein Total Protein Albumin Triglycerides Ur Specific [place] Urine WBC (Auto) Miscellaneous Test 04/18/17 04/18/17 04/18/17 03:55 03:55 05:30 WBC RBC 3.05 L Hgb 9.8 L Hct 29.0 L MCV 95 H MCH RDW Plt Count 113 L Lymph % (Auto) [place] % (Auto) Eos % (Auto) 5.3 H Baso % (Auto) Lymph # Baso # Seg Neutrophils % 71.5 H Lymphocytes % (Manual) Monocytes % (Manual) Nucleated RBC % Seg Neutrophils # Seg Neutrophils # Man Monocytes # (Manual) PT INR Activated Clotting Time POC ABG pH 7.460 H POC ABG pCO2 30.8 L POC ABG pO2 129 H Sodium Potassium Chloride Carbon Dioxide 21 L BUN 25 H Creatinine 0.4 L Glucose 123 H POC Glucose Calcium 8.3 L Magnesium Direct Bilirubin AST ALT Alkaline Phosphatase Total Creatine Kinase CK-MB (CK-2) CK-MB (CK-2) Rel Index Troponin T C-Reactive Protein Total Protein Albumin Triglycerides Ur Specific [place] Urine WBC (Auto) Miscellaneous Test 04/18/17 04/18/17 04/19/17 17:10 23:40 04:36 WBC RBC 3.21 L Hgb 10.2 L Hct 30.4 L MCV 95 H MCH RDW Plt Count 131 L Lymph % (Auto) 12.1 L [place] % (Auto) Eos % (Auto) 4.7 H Baso % (Auto) 2.4 H Lymph # 0.9 L Baso # 0.2 H Seg Neutrophils % 75.0 H Lymphocytes % (Manual) Monocytes % (Manual) Nucleated RBC % Seg Neutrophils # Seg Neutrophils # Man Monocytes # (Manual) PT INR Activated Clotting Time POC ABG pH POC ABG pCO2 POC ABG pO2 Sodium Potassium Chloride Carbon Dioxide BUN Creatinine Glucose POC Glucose 135 H 157 H Calcium Magnesium Direct Bilirubin AST ALT Alkaline Phosphatase Total Creatine Kinase CK-MB (CK-2) CK-MB (CK-2) Rel Index Troponin T C-Reactive Protein Total Protein Albumin Triglycerides Ur Specific [place] Urine WBC (Auto) Miscellaneous Test 04/19/17 04/19/17 04/19/17 04:36 05:12 06:50 WBC RBC Hgb Hct MCV MCH RDW Plt Count Lymph % (Auto) [place] % (Auto) Eos % (Auto) Baso % (Auto) Lymph # Baso # Seg Neutrophils % Lymphocytes % (Manual) Monocytes % (Manual) Nucleated RBC % Seg Neutrophils # Seg Neutrophils # Man Monocytes # (Manual) PT INR Activated Clotting Time POC ABG pH 7.516 H POC ABG pCO2 28.0 L POC ABG pO2 Sodium Potassium Chloride Carbon Dioxide 21 L BUN 23 H Creatinine 0.2 L Glucose 137 H POC Glucose 131 H Calcium 7.9 L Magnesium Direct Bilirubin AST ALT Alkaline Phosphatase Total Creatine Kinase CK-MB (CK-2) CK-MB (CK-2) Rel Index Troponin T C-Reactive Protein Total Protein Albumin Triglycerides Ur Specific [place] Urine WBC (Auto) Miscellaneous Test 04/19/17 04/19/17 04/20/17 12:36 17:42 00:12 WBC RBC Hgb Hct MCV MCH RDW Plt Count Lymph % (Auto) [place] % (Auto) Eos % (Auto) Baso % (Auto) Lymph # Baso # Seg Neutrophils % Lymphocytes % (Manual) Monocytes % (Manual) Nucleated RBC % Seg Neutrophils # Seg Neutrophils # Man Monocytes # (Manual) PT INR Activated Clotting Time POC ABG pH POC ABG pCO2 POC ABG pO2 Sodium Potassium Chloride Carbon Dioxide BUN Creatinine Glucose POC Glucose 128 H 140 H 132 H Calcium Magnesium Direct Bilirubin AST ALT Alkaline Phosphatase Total Creatine Kinase CK-MB (CK-2) CK-MB (CK-2) Rel Index Troponin T C-Reactive Protein Total Protein Albumin Triglycerides Ur Specific [place] Urine WBC (Auto) Miscellaneous Test 04/20/17 04/20/17 04/20/17 03:35 03:35 05:10 WBC RBC 3.34 L Hgb 10.4 L Hct 31.6 L MCV 95 H MCH RDW Plt Count Lymph % (Auto) 12.9 L [place] % (Auto) Eos % (Auto) Baso % (Auto) Lymph # Baso # Seg Neutrophils % 77.3 H Lymphocytes % (Manual) Monocytes % (Manual) Nucleated RBC % Seg Neutrophils # Seg Neutrophils # Man Monocytes # (Manual) PT INR Activated Clotting Time POC ABG pH POC ABG pCO2 POC ABG pO2 Sodium Potassium Chloride Carbon Dioxide BUN Creatinine 0.3 L Glucose 155 H POC Glucose 135 H Calcium 7.8 L Magnesium Direct Bilirubin AST ALT Alkaline Phosphatase Total Creatine Kinase CK-MB (CK-2) CK-MB (CK-2) Rel Index Troponin T C-Reactive Protein Total Protein Albumin Triglycerides Ur Specific [place] Urine WBC (Auto) Miscellaneous Test 04/20/17 04/20/17 04/21/17 12:49 18:21 00:05 WBC RBC Hgb Hct MCV MCH RDW Plt Count Lymph % (Auto) [place] % (Auto) Eos % (Auto) Baso % (Auto) Lymph # Baso # Seg Neutrophils % Lymphocytes % (Manual) Monocytes % (Manual) Nucleated RBC % Seg Neutrophils # Seg Neutrophils # Man Monocytes # (Manual) PT INR Activated Clotting Time POC ABG pH POC ABG pCO2 POC ABG pO2 Sodium Potassium Chloride Carbon Dioxide BUN Creatinine Glucose POC Glucose 155 H 165 H 141 H Calcium Magnesium Direct Bilirubin AST ALT Alkaline Phosphatase Total Creatine Kinase CK-MB (CK-2) CK-MB (CK-2) Rel Index Troponin T C-Reactive Protein Total Protein Albumin Triglycerides Ur Specific [place] Urine WBC (Auto) Miscellaneous Test 04/21/17 04/21/17 04/21/17 06:00 12:11 17:04 WBC RBC Hgb Hct MCV MCH RDW Plt Count Lymph % (Auto) [place] % (Auto) Eos % (Auto) Baso % (Auto) Lymph # Baso # Seg Neutrophils % Lymphocytes % (Manual) Monocytes % (Manual) Nucleated RBC % Seg Neutrophils # Seg Neutrophils # Man Monocytes # (Manual) PT INR Activated Clotting Time POC ABG pH POC ABG pCO2 POC ABG pO2 Sodium Potassium Chloride Carbon Dioxide BUN Creatinine Glucose POC Glucose 152 H 165 H 156 H Calcium Magnesium Direct Bilirubin AST ALT Alkaline Phosphatase Total Creatine Kinase CK-MB (CK-2) CK-MB (CK-2) Rel Index Troponin T C-Reactive Protein Total Protein Albumin Triglycerides Ur Specific [place] Urine WBC (Auto) Miscellaneous Test 04/21/17 04/21/17 04/22/17 22:00 23:59 05:49 WBC RBC Hgb Hct MCV MCH RDW Plt Count Lymph % (Auto) [place] % (Auto) Eos % (Auto) Baso % (Auto) Lymph # Baso # Seg Neutrophils % Lymphocytes % (Manual) Monocytes % (Manual) Nucleated RBC % Seg Neutrophils # Seg Neutrophils # Man Monocytes # (Manual) PT INR Activated Clotting Time POC ABG pH POC ABG pCO2 POC ABG pO2 Sodium Potassium Chloride Carbon Dioxide BUN Creatinine Glucose POC Glucose 166 H 173 H Calcium Magnesium Direct Bilirubin AST ALT Alkaline Phosphatase Total Creatine Kinase CK-MB (CK-2) CK-MB (CK-2) Rel Index Troponin T C-Reactive Protein Total Protein Albumin Triglycerides Ur Specific [place] Urine WBC (Auto) 10.0 H Miscellaneous Test 04/22/17 04/22/17 04/23/17 11:11 18:04 00:37 WBC RBC Hgb Hct MCV MCH RDW Plt Count Lymph % (Auto) [place] % (Auto) Eos % (Auto) Baso % (Auto) Lymph # Baso # Seg Neutrophils % Lymphocytes % (Manual) Monocytes % (Manual) Nucleated RBC % Seg Neutrophils # Seg Neutrophils # Man Monocytes # (Manual) PT INR Activated Clotting Time POC ABG pH POC ABG pCO2 POC ABG pO2 Sodium Potassium Chloride Carbon Dioxide BUN Creatinine Glucose POC Glucose 172 H 140 H 135 H Calcium Magnesium Direct Bilirubin AST ALT Alkaline Phosphatase Total Creatine Kinase CK-MB (CK-2) CK-MB (CK-2) Rel Index Troponin T C-Reactive Protein Total Protein Albumin Triglycerides Ur Specific [place] Urine WBC (Auto) Miscellaneous Test 04/23/17 04/23/17 04/23/17 05:33 06:20 11:10 WBC RBC 3.19 L Hgb 9.9 L Hct 30.0 L MCV MCH RDW Plt Count Lymph % (Auto) 8.0 L [place] % (Auto) Eos % (Auto) Baso % (Auto) Lymph # 0.8 L Baso # Seg Neutrophils % 84.5 H Lymphocytes % (Manual) Monocytes % (Manual) Nucleated RBC % Seg Neutrophils # 8.2 H Seg Neutrophils # Man Monocytes # (Manual) PT INR Activated Clotting Time POC ABG pH POC ABG pCO2 POC ABG pO2 Sodium Potassium Chloride Carbon Dioxide BUN Creatinine Glucose POC Glucose 134 H 134 H Calcium Magnesium Direct Bilirubin AST ALT Alkaline Phosphatase Total Creatine Kinase CK-MB (CK-2) CK-MB (CK-2) Rel Index Troponin T C-Reactive Protein Total Protein Albumin Triglycerides Ur Specific [place] Urine WBC (Auto) Miscellaneous Test 04/23/17 04/24/17 04/24/17 17:26 00:53 06:46 WBC RBC Hgb Hct MCV MCH RDW Plt Count Lymph % (Auto) [place] % (Auto) Eos % (Auto) Baso % (Auto) Lymph # Baso # Seg Neutrophils % Lymphocytes % (Manual) Monocytes % (Manual) Nucleated RBC % Seg Neutrophils # Seg Neutrophils # Man Monocytes # (Manual) PT INR Activated Clotting Time POC ABG pH POC ABG pCO2 POC ABG pO2 Sodium Potassium Chloride Carbon Dioxide BUN Creatinine Glucose POC Glucose 164 H 146 H 125 H Calcium Magnesium Direct Bilirubin AST ALT Alkaline Phosphatase Total Creatine Kinase CK-MB (CK-2) CK-MB (CK-2) Rel Index Troponin T C-Reactive Protein Total Protein Albumin Triglycerides Ur Specific [place] Urine WBC (Auto) Miscellaneous Test 04/24/17 04/24/17 04/24/17 11:55 17:50 23:36 WBC RBC Hgb Hct MCV MCH RDW Plt Count Lymph % (Auto) [place] % (Auto) Eos % (Auto) Baso % (Auto) Lymph # Baso # Seg Neutrophils % Lymphocytes % (Manual) Monocytes % (Manual) Nucleated RBC % Seg Neutrophils # Seg Neutrophils # Man Monocytes # (Manual) PT INR Activated Clotting Time POC ABG pH POC ABG pCO2 POC ABG pO2 Sodium Potassium Chloride Carbon Dioxide BUN Creatinine Glucose POC Glucose 156 H 146 H 131 H Calcium Magnesium Direct Bilirubin AST ALT Alkaline Phosphatase Total Creatine Kinase CK-MB (CK-2) CK-MB (CK-2) Rel Index Troponin T C-Reactive Protein Total Protein Albumin Triglycerides Ur Specific [place] Urine WBC (Auto) Miscellaneous Test 04/25/17 04/25/17 04/25/17 04:51 05:16 07:07 WBC RBC Hgb Hct MCV MCH RDW Plt Count Lymph % (Auto) [place] % (Auto) Eos % (Auto) Baso % (Auto) Lymph # Baso # Seg Neutrophils % Lymphocytes % (Manual) Monocytes % (Manual) Nucleated RBC % Seg Neutrophils # Seg Neutrophils # Man Monocytes # (Manual) PT INR Activated Clotting Time POC ABG pH POC ABG pCO2 POC ABG pO2 Sodium Potassium Chloride Carbon Dioxide BUN Creatinine Glucose POC Glucose 139 H Calcium Magnesium Direct Bilirubin AST 105 H ALT 204 H Alkaline Phosphatase 189 H Total Creatine Kinase CK-MB (CK-2) CK-MB (CK-2) Rel Index Troponin T C-Reactive Protein Total Protein Albumin 2.4 L Triglycerides Ur Specific [place] Urine WBC (Auto) Miscellaneous Test Flexitest 1 H 04/25/17 04/25/17 04/25/17 12:29 17:23 23:32 WBC RBC Hgb Hct MCV MCH RDW Plt Count Lymph % (Auto) [place] % (Auto) Eos % (Auto) Baso % (Auto) Lymph # Baso # Seg Neutrophils % Lymphocytes % (Manual) Monocytes % (Manual) Nucleated RBC % Seg Neutrophils # Seg Neutrophils # Man Monocytes # (Manual) PT INR Activated Clotting Time POC ABG pH POC ABG pCO2 POC ABG pO2 Sodium Potassium Chloride Carbon Dioxide BUN Creatinine Glucose POC Glucose 132 H 133 H 128 H Calcium Magnesium Direct Bilirubin AST ALT Alkaline Phosphatase Total Creatine Kinase CK-MB (CK-2) CK-MB (CK-2) Rel Index Troponin T C-Reactive Protein Total Protein Albumin Triglycerides Ur Specific [place] Urine WBC (Auto) Miscellaneous Test 04/26/17 04/26/17 04/26/17 05:24 11:28 17:09 WBC RBC Hgb Hct MCV MCH RDW Plt Count Lymph % (Auto) [place] % (Auto) Eos % (Auto) Baso % (Auto) Lymph # Baso # Seg Neutrophils % Lymphocytes % (Manual) Monocytes % (Manual) Nucleated RBC % Seg Neutrophils # Seg Neutrophils # Man Monocytes # (Manual) PT INR Activated Clotting Time POC ABG pH POC ABG pCO2 POC ABG pO2 Sodium Potassium Chloride Carbon Dioxide BUN Creatinine Glucose POC Glucose 132 H 146 H 141 H Calcium Magnesium Direct Bilirubin AST ALT Alkaline Phosphatase Total Creatine Kinase CK-MB (CK-2) CK-MB (CK-2) Rel Index Troponin T C-Reactive Protein Total Protein Albumin Triglycerides Ur Specific [place] Urine WBC (Auto) Miscellaneous Test 04/26/17 04/27/17 04/27/17 23:52 05:40 05:40 WBC RBC 3.22 L Hgb 10.0 L Hct 29.9 L MCV MCH RDW Plt Count Lymph % (Auto) [place] % (Auto) Eos % (Auto) Baso % (Auto) Lymph # Baso # Seg Neutrophils % 76.6 H Lymphocytes % (Manual) Monocytes % (Manual) Nucleated RBC % Seg Neutrophils # Seg Neutrophils # Man Monocytes # (Manual) PT INR Activated Clotting Time POC ABG pH POC ABG pCO2 POC ABG pO2 Sodium Potassium Chloride Carbon Dioxide BUN Creatinine Glucose POC Glucose 140 H Calcium Magnesium Direct Bilirubin AST 66 H ALT 137 H Alkaline Phosphatase 169 H Total Creatine Kinase CK-MB (CK-2) CK-MB (CK-2) Rel Index Troponin T C-Reactive Protein Total Protein 6.2 L Albumin 2.6 L Triglycerides Ur Specific [place] Urine WBC (Auto) Miscellaneous Test 04/27/17 04/27/17 04/27/17 05:40 06:10 11:13 WBC RBC Hgb Hct MCV MCH RDW Plt Count Lymph % (Auto) [place] % (Auto) Eos % (Auto) Baso % (Auto) Lymph # Baso # Seg Neutrophils % Lymphocytes % (Manual) Monocytes % (Manual) Nucleated RBC % Seg Neutrophils # Seg Neutrophils # Man Monocytes # (Manual) PT INR Activated Clotting Time POC ABG pH POC ABG pCO2 POC ABG pO2 Sodium Potassium Chloride Carbon Dioxide BUN Creatinine 0.2 L Glucose 139 H POC Glucose 130 H 151 H Calcium Magnesium Direct Bilirubin AST ALT Alkaline Phosphatase Total Creatine Kinase CK-MB (CK-2) CK-MB (CK-2) Rel Index Troponin T C-Reactive Protein Total Protein Albumin Triglycerides Ur Specific [place] Urine WBC (Auto) Miscellaneous Test 04/27/17 04/27/17 04/28/17 17:37 23:19 05:24 WBC RBC Hgb Hct MCV MCH RDW Plt Count Lymph % (Auto) [place] % (Auto) Eos % (Auto) Baso % (Auto) Lymph # Baso # Seg Neutrophils % Lymphocytes % (Manual) Monocytes % (Manual) Nucleated RBC % Seg Neutrophils # Seg Neutrophils # Man Monocytes # (Manual) PT INR Activated Clotting Time POC ABG pH POC ABG pCO2 POC ABG pO2 Sodium Potassium Chloride Carbon Dioxide BUN Creatinine Glucose POC Glucose 159 H 130 H 132 H Calcium Magnesium Direct Bilirubin AST ALT Alkaline Phosphatase Total Creatine Kinase CK-MB (CK-2) CK-MB (CK-2) Rel Index Troponin T C-Reactive Protein Total Protein Albumin Triglycerides Ur Specific [place] Urine WBC (Auto) Miscellaneous Test 04/28/17 04/28/17 04/28/17 11:15 17:38 23:23 WBC RBC Hgb Hct MCV MCH RDW Plt Count Lymph % (Auto) [place] % (Auto) Eos % (Auto) Baso % (Auto) Lymph # Baso # Seg Neutrophils % Lymphocytes % (Manual) Monocytes % (Manual) Nucleated RBC % Seg Neutrophils # Seg Neutrophils # Man Monocytes # (Manual) PT INR Activated Clotting Time POC ABG pH POC ABG pCO2 POC ABG pO2 Sodium Potassium Chloride Carbon Dioxide BUN Creatinine Glucose POC Glucose 162 H 133 H 138 H Calcium Magnesium Direct Bilirubin AST ALT Alkaline Phosphatase Total Creatine Kinase CK-MB (CK-2) CK-MB (CK-2) Rel Index Troponin T C-Reactive Protein Total Protein Albumin Triglycerides Ur Specific [place] Urine WBC (Auto) Miscellaneous Test 04/29/17 04/29/17 04/29/17 05:15 12:55 17:21 WBC RBC Hgb Hct MCV MCH RDW Plt Count Lymph % (Auto) [place] % (Auto) Eos % (Auto) Baso % (Auto) Lymph # Baso # Seg Neutrophils % Lymphocytes % (Manual) Monocytes % (Manual) Nucleated RBC % Seg Neutrophils # Seg Neutrophils # Man Monocytes # (Manual) PT INR Activated Clotting Time POC ABG pH POC ABG pCO2 POC ABG pO2 Sodium Potassium Chloride Carbon Dioxide BUN Creatinine Glucose POC Glucose 135 H 127 H 138 H Calcium Magnesium Direct Bilirubin AST ALT Alkaline Phosphatase Total Creatine Kinase CK-MB (CK-2) CK-MB (CK-2) Rel Index Troponin T C-Reactive Protein Total Protein Albumin Triglycerides Ur Specific [place] Urine WBC (Auto) Miscellaneous Test 04/29/17 04/30/17 04/30/17 23:52 04:55 12:22 WBC RBC Hgb Hct MCV MCH RDW Plt Count Lymph % (Auto) [place] % (Auto) Eos % (Auto) Baso % (Auto) Lymph # Baso # Seg Neutrophils % Lymphocytes % (Manual) Monocytes % (Manual) Nucleated RBC % Seg Neutrophils # Seg Neutrophils # Man Monocytes # (Manual) PT INR Activated Clotting Time POC ABG pH POC ABG pCO2 POC ABG pO2 Sodium Potassium Chloride Carbon Dioxide BUN Creatinine Glucose POC Glucose 142 H 146 H 132 H Calcium Magnesium Direct Bilirubin AST ALT Alkaline Phosphatase Total Creatine Kinase CK-MB (CK-2) CK-MB (CK-2) Rel Index Troponin T C-Reactive Protein Total Protein Albumin Triglycerides Ur Specific [place] Urine WBC (Auto) Miscellaneous Test 04/30/17 04/30/17 04/30/17 14:25 17:47 18:20 WBC RBC Hgb Hct MCV MCH RDW Plt Count Lymph % (Auto) [place] % (Auto) Eos % (Auto) Baso % (Auto) Lymph # Baso # Seg Neutrophils % Lymphocytes % (Manual) Monocytes % (Manual) Nucleated RBC % Seg Neutrophils # Seg Neutrophils # Man Monocytes # (Manual) PT INR Activated Clotting Time POC ABG pH 7.551 H POC ABG pCO2 32.7 L POC ABG pO2 Sodium Potassium Chloride Carbon Dioxide BUN 21 H Creatinine 0.2 L Glucose 141 H POC Glucose 139 H Calcium Magnesium Direct Bilirubin AST ALT Alkaline Phosphatase Total Creatine Kinase CK-MB (CK-2) CK-MB (CK-2) Rel Index Troponin T C-Reactive Protein Total Protein Albumin Triglycerides Ur Specific [place] Urine WBC (Auto) Miscellaneous Test 05/01/17 05/01/17 05/01/17 01:26 05:30 05:30 WBC RBC 3.49 L Hgb 10.3 L Hct 31.9 L MCV MCH RDW Plt Count Lymph % (Auto) [place] % (Auto) 8.1 H Eos % (Auto) Baso % (Auto) Lymph # Baso # Seg Neutrophils % 71.3 H Lymphocytes % (Manual) Monocytes % (Manual) Nucleated RBC % Seg Neutrophils # Seg Neutrophils # Man Monocytes # (Manual) PT INR Activated Clotting Time POC ABG pH POC ABG pCO2 POC ABG pO2 Sodium 136 L Potassium Chloride 97.6 L Carbon Dioxide BUN Creatinine 0.2 L Glucose 123 H POC Glucose 116 H Calcium Magnesium Direct Bilirubin AST 71 H ALT 125 H Alkaline Phosphatase 158 H Total Creatine Kinase CK-MB (CK-2) CK-MB (CK-2) Rel Index Troponin T C-Reactive Protein Total Protein Albumin 2.6 L Triglycerides Ur Specific [place] Urine WBC (Auto) Miscellaneous Test 05/01/17 05/01/17 05/02/17 11:59 17:23 00:08 WBC RBC Hgb Hct MCV MCH RDW Plt Count Lymph % (Auto) [place] % (Auto) Eos % (Auto) Baso % (Auto) Lymph # Baso # Seg Neutrophils % Lymphocytes % (Manual) Monocytes % (Manual) Nucleated RBC % Seg Neutrophils # Seg Neutrophils # Man Monocytes # (Manual) PT INR Activated Clotting Time POC ABG pH POC ABG pCO2 POC ABG pO2 Sodium Potassium Chloride Carbon Dioxide BUN Creatinine Glucose POC Glucose 118 H 144 H 122 H Calcium Magnesium Direct Bilirubin AST ALT Alkaline Phosphatase Total Creatine Kinase CK-MB (CK-2) CK-MB (CK-2) Rel Index Troponin T C-Reactive Protein Total Protein Albumin Triglycerides Ur Specific [place] Urine WBC (Auto) Miscellaneous Test 05/02/17 05/02/17 05/02/17 05:50 11:21 17:48 WBC RBC Hgb Hct MCV MCH RDW Plt Count Lymph % (Auto) [place] % (Auto) Eos % (Auto) Baso % (Auto) Lymph # Baso # Seg Neutrophils % Lymphocytes % (Manual) Monocytes % (Manual) Nucleated RBC % Seg Neutrophils # Seg Neutrophils # Man Monocytes # (Manual) PT INR Activated Clotting Time POC ABG pH POC ABG pCO2 POC ABG pO2 Sodium Potassium Chloride Carbon Dioxide BUN Creatinine Glucose POC Glucose 120 H 121 H 140 H Calcium Magnesium Direct Bilirubin AST ALT Alkaline Phosphatase Total Creatine Kinase CK-MB (CK-2) CK-MB (CK-2) Rel Index Troponin T C-Reactive Protein Total Protein Albumin Triglycerides Ur Specific [place] Urine WBC (Auto) Miscellaneous Test 05/02/17 05/03/17 05/03/17 23:12 05:35 11:52 WBC RBC Hgb Hct MCV MCH RDW Plt Count Lymph % (Auto) [place] % (Auto) Eos % (Auto) Baso % (Auto) Lymph # Baso # Seg Neutrophils % Lymphocytes % (Manual) Monocytes % (Manual) Nucleated RBC % Seg Neutrophils # Seg Neutrophils # Man Monocytes # (Manual) PT INR Activated Clotting Time POC ABG pH POC ABG pCO2 POC ABG pO2 Sodium Potassium Chloride Carbon Dioxide BUN Creatinine Glucose POC Glucose 128 H 113 H 126 H Calcium Magnesium Direct Bilirubin AST ALT Alkaline Phosphatase Total Creatine Kinase CK-MB (CK-2) CK-MB (CK-2) Rel Index Troponin T C-Reactive Protein Total Protein Albumin Triglycerides Ur Specific [place] Urine WBC (Auto) Miscellaneous Test 05/03/17 05/03/17 05/04/17 17:29 23:26 04:55 WBC RBC Hgb Hct MCV MCH RDW Plt Count Lymph % (Auto) [place] % (Auto) Eos % (Auto) Baso % (Auto) Lymph # Baso # Seg Neutrophils % Lymphocytes % (Manual) Monocytes % (Manual) Nucleated RBC % Seg Neutrophils # Seg Neutrophils # Man Monocytes # (Manual) PT INR Activated Clotting Time POC ABG pH POC ABG pCO2 POC ABG pO2 Sodium Potassium Chloride Carbon Dioxide BUN Creatinine Glucose POC Glucose 141 H 129 H 126 H Calcium Magnesium Direct Bilirubin AST ALT Alkaline Phosphatase Total Creatine Kinase CK-MB (CK-2) CK-MB (CK-2) Rel Index Troponin T C-Reactive Protein Total Protein Albumin Triglycerides Ur Specific [place] Urine WBC (Auto) Miscellaneous Test 05/04/17 05/04/17 05/05/17 12:09 17:46 00:06 WBC RBC Hgb Hct MCV MCH RDW Plt Count Lymph % (Auto) [place] % (Auto) Eos % (Auto) Baso % (Auto) Lymph # Baso # Seg Neutrophils % Lymphocytes % (Manual) Monocytes % (Manual) Nucleated RBC % Seg Neutrophils # Seg Neutrophils # Man Monocytes # (Manual) PT INR Activated Clotting Time POC ABG pH POC ABG pCO2 POC ABG pO2 Sodium Potassium Chloride Carbon Dioxide BUN Creatinine Glucose POC Glucose 125 H 125 H 110 H Calcium Magnesium Direct Bilirubin AST ALT Alkaline Phosphatase Total Creatine Kinase CK-MB (CK-2) CK-MB (CK-2) Rel Index Troponin T C-Reactive Protein Total Protein Albumin Triglycerides Ur Specific [place] Urine WBC (Auto) Miscellaneous Test 05/05/17 05/05/17 05/05/17 05:48 11:41 16:19 WBC RBC Hgb Hct MCV MCH RDW Plt Count Lymph % (Auto) [place] % (Auto) Eos % (Auto) Baso % (Auto) Lymph # Baso # Seg Neutrophils % Lymphocytes % (Manual) Monocytes % (Manual) Nucleated RBC % Seg Neutrophils # Seg Neutrophils # Man Monocytes # (Manual) PT INR Activated Clotting Time POC ABG pH POC ABG pCO2 POC ABG pO2 Sodium Potassium Chloride Carbon Dioxide BUN Creatinine Glucose POC Glucose 124 H 122 H 120 H Calcium Magnesium Direct Bilirubin AST ALT Alkaline Phosphatase Total Creatine Kinase CK-MB (CK-2) CK-MB (CK-2) Rel Index Troponin T C-Reactive Protein Total Protein Albumin Triglycerides Ur Specific [place] Urine WBC (Auto) Miscellaneous Test 05/06/17 05/06/17 05/06/17 00:16 05:47 11:42 WBC RBC Hgb Hct MCV MCH RDW Plt Count Lymph % (Auto) [place] % (Auto) Eos % (Auto) Baso % (Auto) Lymph # Baso # Seg Neutrophils % Lymphocytes % (Manual) Monocytes % (Manual) Nucleated RBC % Seg Neutrophils # Seg Neutrophils # Man Monocytes # (Manual) PT INR Activated Clotting Time POC ABG pH POC ABG pCO2 POC ABG pO2 Sodium Potassium Chloride Carbon Dioxide BUN Creatinine Glucose POC Glucose 110 H 142 H 120 H Calcium Magnesium Direct Bilirubin AST ALT Alkaline Phosphatase Total Creatine Kinase CK-MB (CK-2) CK-MB (CK-2) Rel Index Troponin T C-Reactive Protein Total Protein Albumin Triglycerides Ur Specific [place] Urine WBC (Auto) Miscellaneous Test 05/06/17 05/07/17 05/07/17 17:46 00:07 05:28 WBC RBC Hgb Hct MCV MCH RDW Plt Count Lymph % (Auto) [place] % (Auto) Eos % (Auto) Baso % (Auto) Lymph # Baso # Seg Neutrophils % Lymphocytes % (Manual) Monocytes % (Manual) Nucleated RBC % Seg Neutrophils # Seg Neutrophils # Man Monocytes # (Manual) PT INR Activated Clotting Time POC ABG pH POC ABG pCO2 POC ABG pO2 Sodium Potassium Chloride Carbon Dioxide BUN Creatinine Glucose POC Glucose 127 H 145 H 124 H Calcium Magnesium Direct Bilirubin AST ALT Alkaline Phosphatase Total Creatine Kinase CK-MB (CK-2) CK-MB (CK-2) Rel Index Troponin T C-Reactive Protein Total Protein Albumin Triglycerides Ur Specific [place] Urine WBC (Auto) Miscellaneous Test 05/07/17 05/07/17 05/08/17 11:17 17:14 00:03 WBC RBC Hgb Hct MCV MCH RDW Plt Count Lymph % (Auto) [place] % (Auto) Eos % (Auto) Baso % (Auto) Lymph # Baso # Seg Neutrophils % Lymphocytes % (Manual) Monocytes % (Manual) Nucleated RBC % Seg Neutrophils # Seg Neutrophils # Man Monocytes # (Manual) PT INR Activated Clotting Time POC ABG pH POC ABG pCO2 POC ABG pO2 Sodium Potassium Chloride Carbon Dioxide BUN Creatinine Glucose POC Glucose 144 H 125 H 122 H Calcium Magnesium Direct Bilirubin AST ALT Alkaline Phosphatase Total Creatine Kinase CK-MB (CK-2) CK-MB (CK-2) Rel Index Troponin T C-Reactive Protein Total Protein Albumin Triglycerides Ur Specific [place] Urine WBC (Auto) Miscellaneous Test 05/08/17 05/08/17 05/08/17 05:43 12:07 18:02 WBC RBC Hgb Hct MCV MCH RDW Plt Count Lymph % (Auto) [place] % (Auto) Eos % (Auto) Baso % (Auto) Lymph # Baso # Seg Neutrophils % Lymphocytes % (Manual) Monocytes % (Manual) Nucleated RBC % Seg Neutrophils # Seg Neutrophils # Man Monocytes # (Manual) PT INR Activated Clotting Time POC ABG pH POC ABG pCO2 POC ABG pO2 Sodium Potassium Chloride Carbon Dioxide BUN Creatinine Glucose POC Glucose 117 H 114 H 129 H Calcium Magnesium Direct Bilirubin AST ALT Alkaline Phosphatase Total Creatine Kinase CK-MB (CK-2) CK-MB (CK-2) Rel Index Troponin T C-Reactive Protein Total Protein Albumin Triglycerides Ur Specific [place] Urine WBC (Auto) Miscellaneous Test 05/08/17 05/09/17 05/09/17 23:53 04:19 05:14 WBC RBC Hgb Hct MCV MCH RDW Plt Count Lymph % (Auto) [place] % (Auto) Eos % (Auto) Baso % (Auto) Lymph # Baso # Seg Neutrophils % Lymphocytes % (Manual) Monocytes % (Manual) Nucleated RBC % Seg Neutrophils # Seg Neutrophils # Man Monocytes # (Manual) PT INR Activated Clotting Time POC ABG pH 7.524 H POC ABG pCO2 34.7 L POC ABG pO2 107 H Sodium Potassium Chloride Carbon Dioxide BUN Creatinine Glucose POC Glucose 125 H 118 H Calcium Magnesium Direct Bilirubin AST ALT Alkaline Phosphatase Total Creatine Kinase CK-MB (CK-2) CK-MB (CK-2) Rel Index Troponin T C-Reactive Protein Total Protein Albumin Triglycerides Ur Specific [place] Urine WBC (Auto) Miscellaneous Test 05/10/17 05/11/17 05/11/17 23:54 05:48 23:50 WBC RBC Hgb Hct MCV MCH RDW Plt Count Lymph % (Auto) [place] % (Auto) Eos % (Auto) Baso % (Auto) Lymph # Baso # Seg Neutrophils % Lymphocytes % (Manual) Monocytes % (Manual) Nucleated RBC % Seg Neutrophils # Seg Neutrophils # Man Monocytes # (Manual) PT INR Activated Clotting Time POC ABG pH POC ABG pCO2 POC ABG pO2 Sodium Potassium Chloride Carbon Dioxide BUN Creatinine Glucose POC Glucose 126 H 137 H 130 H Calcium Magnesium Direct Bilirubin AST ALT Alkaline Phosphatase Total Creatine Kinase CK-MB (CK-2) CK-MB (CK-2) Rel Index Troponin T C-Reactive Protein Total Protein Albumin Triglycerides Ur Specific [place] Urine WBC (Auto) Miscellaneous Test 05/12/17 05/12/17 05/12/17 05:48 11:33 18:00 WBC RBC Hgb Hct MCV MCH RDW Plt Count Lymph % (Auto) [place] % (Auto) Eos % (Auto) Baso % (Auto) Lymph # Baso # Seg Neutrophils % Lymphocytes % (Manual) Monocytes % (Manual) Nucleated RBC % Seg Neutrophils # Seg Neutrophils # Man Monocytes # (Manual) PT INR Activated Clotting Time POC ABG pH POC ABG pCO2 POC ABG pO2 Sodium Potassium Chloride Carbon Dioxide BUN Creatinine Glucose POC Glucose 126 H 116 H 131 H Calcium Magnesium Direct Bilirubin AST ALT Alkaline Phosphatase Total Creatine Kinase CK-MB (CK-2) CK-MB (CK-2) Rel Index Troponin T C-Reactive Protein Total Protein Albumin Triglycerides Ur Specific [place] Urine WBC (Auto) Miscellaneous Test 05/14/17 05/15/17 05/15/17 11:45 11:27 17:42 WBC RBC Hgb Hct MCV MCH RDW Plt Count Lymph % (Auto) [place] % (Auto) Eos % (Auto) Baso % (Auto) Lymph # Baso # Seg Neutrophils % Lymphocytes % (Manual) Monocytes % (Manual) Nucleated RBC % Seg Neutrophils # Seg Neutrophils # Man Monocytes # (Manual) PT INR Activated Clotting Time POC ABG pH POC ABG pCO2 POC ABG pO2 Sodium Potassium Chloride Carbon Dioxide BUN Creatinine Glucose POC Glucose 123 H 129 H 125 H Calcium Magnesium Direct Bilirubin AST ALT Alkaline Phosphatase Total Creatine Kinase CK-MB (CK-2) CK-MB (CK-2) Rel Index Troponin T C-Reactive Protein Total Protein Albumin Triglycerides Ur Specific [place] Urine WBC (Auto) Miscellaneous Test 05/16/17 05/16/17 05/17/17 00:29 06:50 03:45 WBC RBC Hgb 11.7 L Hct 34.8 L MCV MCH RDW 15.5 H Plt Count Lymph % (Auto) [place] % (Auto) 7.7 H Eos % (Auto) Baso % (Auto) Lymph # Baso # Seg Neutrophils % 73.7 H Lymphocytes % (Manual) Monocytes % (Manual) Nucleated RBC % Seg Neutrophils # Seg Neutrophils # Man Monocytes # (Manual) PT INR Activated Clotting Time POC ABG pH POC ABG pCO2 POC ABG pO2 Sodium Potassium Chloride Carbon Dioxide BUN Creatinine Glucose POC Glucose 141 H 138 H Calcium Magnesium Direct Bilirubin AST ALT Alkaline Phosphatase Total Creatine Kinase CK-MB (CK-2) CK-MB (CK-2) Rel Index Troponin T C-Reactive Protein Total Protein Albumin Triglycerides Ur Specific [place] Urine WBC (Auto) Miscellaneous Test 05/17/17 05/20/17 05/23/17 03:45 17:31 23:09 WBC RBC Hgb Hct MCV MCH RDW Plt Count Lymph % (Auto) [place] % (Auto) Eos % (Auto) Baso % (Auto) Lymph # Baso # Seg Neutrophils % Lymphocytes % (Manual) Monocytes % (Manual) Nucleated RBC % Seg Neutrophils # Seg Neutrophils # Man Monocytes # (Manual) PT INR Activated Clotting Time POC ABG pH POC ABG pCO2 POC ABG pO2 Sodium Potassium Chloride Carbon Dioxide BUN Creatinine 0.2 L Glucose 131 H POC Glucose 116 H 122 H Calcium Magnesium Direct Bilirubin AST ALT Alkaline Phosphatase Total Creatine Kinase CK-MB (CK-2) CK-MB (CK-2) Rel Index Troponin T C-Reactive Protein Total Protein Albumin Triglycerides Ur Specific [place] Urine WBC (Auto) Miscellaneous Test 05/24/17 05/26/17 05/27/17 05:37 05:23 01:16 WBC RBC Hgb Hct MCV MCH RDW Plt Count Lymph % (Auto) [place] % (Auto) Eos % (Auto) Baso % (Auto) Lymph # Baso # Seg Neutrophils % Lymphocytes % (Manual) Monocytes % (Manual) Nucleated RBC % Seg Neutrophils # Seg Neutrophils # Man Monocytes # (Manual) PT INR Activated Clotting Time POC ABG pH POC ABG pCO2 POC ABG pO2 Sodium Potassium Chloride Carbon Dioxide BUN Creatinine Glucose POC Glucose 139 H 108 H 126 H Calcium Magnesium Direct Bilirubin AST ALT Alkaline Phosphatase Total Creatine Kinase CK-MB (CK-2) CK-MB (CK-2) Rel Index Troponin T C-Reactive Protein Total Protein Albumin Triglycerides Ur Specific [place] Urine WBC (Auto) Miscellaneous Test 05/27/17 05/27/17 05/29/17 05:33 21:49 04:37 WBC RBC Hgb Hct MCV MCH RDW 15.5 H Plt Count Lymph % (Auto) [place] % (Auto) Eos % (Auto) Baso % (Auto) Lymph # Baso # Seg Neutrophils % Lymphocytes % (Manual) Monocytes % (Manual) Nucleated RBC % Seg Neutrophils # Seg Neutrophils # Man Monocytes # (Manual) PT INR Activated Clotting Time POC ABG pH POC ABG pCO2 POC ABG pO2 Sodium Potassium Chloride Carbon Dioxide BUN Creatinine Glucose POC Glucose 129 H 110 H Calcium Magnesium Direct Bilirubin AST ALT Alkaline Phosphatase Total Creatine Kinase CK-MB (CK-2) CK-MB (CK-2) Rel Index Troponin T C-Reactive Protein Total Protein Albumin Triglycerides Ur Specific [place] Urine WBC (Auto) Miscellaneous Test 05/29/17 04:37 WBC RBC Hgb Hct MCV MCH RDW Plt Count Lymph % (Auto) [place] % (Auto) Eos % (Auto) Baso % (Auto) Lymph # Baso # Seg Neutrophils % Lymphocytes % (Manual) Monocytes % (Manual) Nucleated RBC % Seg Neutrophils # Seg Neutrophils # Man Monocytes # (Manual) PT INR Activated Clotting Time POC ABG pH POC ABG pCO2 POC ABG pO2 Sodium Potassium Chloride 97.6 L Carbon Dioxide BUN Creatinine 0.2 L Glucose 121 H POC Glucose Calcium Magnesium Direct Bilirubin AST ALT Alkaline Phosphatase Total Creatine Kinase CK-MB (CK-2) CK-MB (CK-2) Rel Index Troponin T C-Reactive Protein Total Protein Albumin Triglycerides Ur Specific [place] Urine WBC (Auto) Miscellaneous Test
[2017-05-30] MEDS: ASPIRIN PO SCH (10:19)
[2017-05-30] MEDS: PLAVIX PO SCH (10:19)
[2017-05-30] MEDS: ZESTRIL PO SCH (10:19)
[2017-05-30] MEDS: LOPRESSOR PO SCH ×2 (10:19→22:20)
[2017-05-30] MEDS: PROTONIX FEEDTUBE SCH (10:19)
[2017-05-30] MEDS: CORDARONE PO SCH ×2 (10:20→22:20)
[2017-05-30] MEDS: ELIQUIS PO SCH ×2 (10:20→22:20)
[2017-05-31] MEDS: ZESTRIL PO SCH (09:20)
[2017-05-31] MEDS: PLAVIX PO SCH (09:32)
[2017-05-31] MEDS: PROTONIX FEEDTUBE SCH (09:32)
[2017-05-31] MEDS: ELIQUIS PO SCH ×2 (09:32→23:21)
[2017-05-31] MEDS: CORDARONE PO SCH ×2 (09:32→23:21)
[2017-05-31] MEDS: ASPIRIN PO SCH (09:32)
[2017-05-31] MEDS: LOPRESSOR PO SCH ×2 (09:35→23:20)
--- NOTE | 2017-05-31 09:46 | Progress Note ---
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 No new recommendations for today. Patient remains full code and will continue PSV as tolerated with hopes of weaning to T-piece. He continues to have Apnea and fails PSV trials. Family has been made aware of this. 1. PSV as tolerated with a goal to get to T-piece 2. Once tolerates T-piece for 24 hours, can consider transfer to floor, this is highly unlikely. 3. reviewed neurology note and agree with assessment 4. Continue all other cardiac meds 5. Overall prognosis still remains poor given amount of downtime during arrest. 6. Family meeting held, they feel the patient will overcome this current state as they have had other family members do the same. Very in depth conversation about the prognosis and current clinical state. I've made my best attempt to help them understand. Neuro agrees. Will continue supportive measures and attempt to wean. CCT 31 minutes. Subjective Date of service: 05/31/17 Principal diagnosis: coma,ARV,s/p arrest Interval history: No acute events. Mental state is unchanged. Objective Vital Signs - 12hr 05/30/17 05/30/17 05/30/17 22:00 22:20 23:00 Temperature Pulse Rate 74 67 67 Pulse Rate [ From Monitor] Respiratory 20 21 Rate Blood Pressure 104/61 104/61 98/58 O2 Sat by Pulse 95 95 Oximetry O2 Sat by Pulse Oximetry [ Assessment] 05/30/17 05/30/17 05/31/17 23:23 23:45 00:00 Temperature 98.8 F Pulse Rate 68 74 Pulse Rate [ 78 From Monitor] Respiratory 15 18 Rate Blood Pressure 100/61 99/63 O2 Sat by Pulse 99 99 Oximetry O2 Sat by Pulse 96 Oximetry [ Assessment] 05/31/17 05/31/17 05/31/17 01:00 02:00 03:00 Temperature Pulse Rate 62 74 71 Pulse Rate [ From Monitor] Respiratory 16 22 16 Rate Blood Pressure 94/50 110/62 89/53 O2 Sat by Pulse 96 96 99 Oximetry O2 Sat by Pulse Oximetry [ Assessment] 05/31/17 05/31/17 05/31/17 04:00 05:01 06:00 Temperature 98.9 F Pulse Rate 78 82 68 Pulse Rate [ 80 From Monitor] Respiratory 16 20 21 Rate Blood Pressure 107/66 113/68 106/59 O2 Sat by Pulse 84 89 95 Oximetry O2 Sat by Pulse Oximetry [ Assessment] 05/31/17 05/31/17 05/31/17 07:00 07:21 07:26 Temperature Pulse Rate 79 81 Pulse Rate [ From Monitor] Respiratory 17 Rate Blood Pressure 112/73 112/73 O2 Sat by Pulse 96 Oximetry O2 Sat by Pulse 97 Oximetry [ Assessment] 05/31/17 05/31/17 05/31/17 08:00 09:00 09:20 Temperature Pulse Rate 80 74 74 Pulse Rate [ From Monitor] Respiratory 21 23 Rate Blood Pressure 101/62 113/60 113/60 O2 Sat by Pulse 83 L 87 Oximetry O2 Sat by Pulse Oximetry [ Assessment] Constitutional: no acute distress, comatose Eyes: non-icteric ENT: oropharynx moist Neck: supple, other (tracheotomy ) Effort: normal Ascultation: Bilateral: clear, diminished breath sounds, other (coarse BS bilaterally) Percussion: Bilateral: not dull Cardiovascular: regular rate and rhythm Gastrointestinal: normoactive bowel sounds, soft, non-tender, non-distended Integumentary: normal Extremities: no cyanosis, no edema, pink and warm Neurologic: other (nonresponsive with flaccid extremities) Psychiatric: other (eyes open spontaneously but does not follow any voice commands, otherwise nonresponsive except for pain) CBC and BMP: 05/29/17 04:37 05/29/17 04:37 ABG, PT/INR, D-dimer: ABG POC ABG pH 7.524 (7.35-7.45) H 05/09/17 04:19 POC ABG pCO2 34.7 (35-45) L 05/09/17 04:19 POC ABG pO2 107 (80-105) H 05/09/17 04:19 POC ABG HCO3 28.6 05/09/17 04:19 POC ABG Total CO2 30 05/09/17 04:19 POC ABG O2 Sat 99 05/09/17 04:19 PT/INR, D-dimer PT 14.9 Sec. (12.2-14.9) 04/10/17 04:16 INR 1.11 (0.87-1.13) 04/10/17 04:16 Abnormal lab findings: Abnormal Labs 03/29/17 03/29/17 03/29/17 11:35 11:35 11:40 WBC RBC Hgb Hct MCV 98 H MCH 33 H RDW Plt Count Lymph % (Auto) [place] % (Auto) Eos % (Auto) Baso % (Auto) Lymph # Baso # Seg Neutrophils % Lymphocytes % (Manual) Monocytes % (Manual) 9.0 H Nucleated RBC % 1.0 H Seg Neutrophils # Seg Neutrophils # Man Monocytes # (Manual) 0.9 H PT 15.8 H INR 1.20 H Activated Clotting Time POC ABG pH POC ABG pCO2 POC ABG pO2 Sodium Potassium 2.7 L* Chloride 95.3 L Carbon Dioxide 17 L BUN Creatinine Glucose 435 H POC Glucose Calcium Magnesium Direct Bilirubin AST ALT Alkaline Phosphatase Total Creatine Kinase CK-MB (CK-2) CK-MB (CK-2) Rel Index Troponin T C-Reactive Protein Total Protein 6.1 L Albumin 3.5 L Triglycerides Ur Specific [place] Urine WBC (Auto) Miscellaneous Test 03/29/17 03/29/17 03/29/17 12:34 13:10 13:25 WBC RBC Hgb Hct MCV MCH RDW Plt Count Lymph % (Auto) [place] % (Auto) Eos % (Auto) Baso % (Auto) Lymph # Baso # Seg Neutrophils % Lymphocytes % (Manual) Monocytes % (Manual) Nucleated RBC % Seg Neutrophils # Seg Neutrophils # Man Monocytes # (Manual) PT INR Activated Clotting Time 142 H 169 H 175 H POC ABG pH POC ABG pCO2 POC ABG pO2 Sodium Potassium Chloride Carbon Dioxide BUN Creatinine Glucose POC Glucose Calcium Magnesium Direct Bilirubin AST ALT Alkaline Phosphatase Total Creatine Kinase CK-MB (CK-2) CK-MB (CK-2) Rel Index Troponin T C-Reactive Protein Total Protein Albumin Triglycerides Ur Specific [place] Urine WBC (Auto) Miscellaneous Test 03/29/17 03/29/17 03/29/17 14:50 15:18 19:52 WBC RBC Hgb Hct MCV MCH RDW Plt Count Lymph % (Auto) [place] % (Auto) Eos % (Auto) Baso % (Auto) Lymph # Baso # Seg Neutrophils % Lymphocytes % (Manual) Monocytes % (Manual) Nucleated RBC % Seg Neutrophils # Seg Neutrophils # Man Monocytes # (Manual) PT INR Activated Clotting Time 175 H POC ABG pH 7.293 L POC ABG pCO2 POC ABG pO2 602 H Sodium Potassium Chloride Carbon Dioxide BUN Creatinine Glucose POC Glucose Calcium Magnesium Direct Bilirubin AST ALT Alkaline Phosphatase Total Creatine Kinase 7263 H CK-MB (CK-2) > 300.0 H CK-MB (CK-2) Rel Index 4.1 H Troponin T 8.080 H* D C-Reactive Protein Total Protein Albumin Triglycerides 195 H Ur Specific [place] Urine WBC (Auto) Miscellaneous Test 03/30/17 03/30/17 03/30/17 03:50 03:50 06:19 WBC 19.5 H RBC Hgb Hct MCV MCH RDW Plt Count Lymph % (Auto) [place] % (Auto) Eos % (Auto) Baso % (Auto) Lymph # Baso # Seg Neutrophils % Lymphocytes % (Manual) 7.0 L Monocytes % (Manual) Nucleated RBC % Seg Neutrophils # Seg Neutrophils # Man 12.7 H Monocytes # (Manual) 1.4 H PT INR Activated Clotting Time POC ABG pH POC ABG pCO2 28.2 L POC ABG pO2 108 H Sodium Potassium Chloride 108.9 H Carbon Dioxide 15 L BUN 25 H Creatinine Glucose 158 H POC Glucose Calcium 8.1 L Magnesium Direct Bilirubin AST ALT Alkaline Phosphatase Total Creatine Kinase 7963 H CK-MB (CK-2) > 300.0 H CK-MB (CK-2) Rel Index Troponin T 6.850 H* C-Reactive Protein Total Protein Albumin Triglycerides Ur Specific [place] Urine WBC (Auto) Miscellaneous Test 03/30/17 03/30/17 03/31/17 09:45 16:04 02:19 WBC RBC Hgb Hct MCV MCH RDW Plt Count Lymph % (Auto) [place] % (Auto) Eos % (Auto) Baso % (Auto) Lymph # Baso # Seg Neutrophils % Lymphocytes % (Manual) Monocytes % (Manual) Nucleated RBC % Seg Neutrophils # Seg Neutrophils # Man Monocytes # (Manual) PT INR Activated Clotting Time POC ABG pH POC ABG pCO2 POC ABG pO2 Sodium Potassium Chloride Carbon Dioxide BUN Creatinine Glucose POC Glucose 137 H Calcium Magnesium Direct Bilirubin AST ALT Alkaline Phosphatase Total Creatine Kinase CK-MB (CK-2) CK-MB (CK-2) Rel Index Troponin T C-Reactive Protein 21.80 H Total Protein Albumin Triglycerides Ur Specific [place] 1.031 H Urine WBC (Auto) Miscellaneous Test 03/31/17 03/31/17 03/31/17 03:57 06:54 09:22 WBC RBC Hgb Hct MCV MCH RDW Plt Count Lymph % (Auto) [place] % (Auto) Eos % (Auto) Baso % (Auto) Lymph # Baso # Seg Neutrophils % Lymphocytes % (Manual) Monocytes % (Manual) Nucleated RBC % Seg Neutrophils # Seg Neutrophils # Man Monocytes # (Manual) PT INR Activated Clotting Time POC ABG pH 7.475 H POC ABG pCO2 25.4 L POC ABG pO2 62 L Sodium Potassium Chloride Carbon Dioxide 19 L BUN 22 H Creatinine 0.6 L Glucose 148 H POC Glucose 143 H Calcium 8.3 L Magnesium Direct Bilirubin AST ALT Alkaline Phosphatase Total Creatine Kinase CK-MB (CK-2) CK-MB (CK-2) Rel Index Troponin T C-Reactive Protein Total Protein Albumin Triglycerides Ur Specific [place] Urine WBC (Auto) Miscellaneous Test 03/31/17 03/31/17 03/31/17 11:40 17:47 23:38 WBC RBC Hgb Hct MCV MCH RDW Plt Count Lymph % (Auto) [place] % (Auto) Eos % (Auto) Baso % (Auto) Lymph # Baso # Seg Neutrophils % Lymphocytes % (Manual) Monocytes % (Manual) Nucleated RBC % Seg Neutrophils # Seg Neutrophils # Man Monocytes # (Manual) PT INR Activated Clotting Time POC ABG pH POC ABG pCO2 POC ABG pO2 Sodium Potassium Chloride Carbon Dioxide BUN Creatinine Glucose POC Glucose 127 H 137 H 148 H Calcium Magnesium Direct Bilirubin AST ALT Alkaline Phosphatase Total Creatine Kinase CK-MB (CK-2) CK-MB (CK-2) Rel Index Troponin T C-Reactive Protein Total Protein Albumin Triglycerides Ur Specific [place] Urine WBC (Auto) Miscellaneous Test 04/01/17 04/01/17 04/01/17 04:29 05:01 11:54 WBC RBC Hgb Hct MCV MCH RDW Plt Count Lymph % (Auto) [place] % (Auto) Eos % (Auto) Baso % (Auto) Lymph # Baso # Seg Neutrophils % Lymphocytes % (Manual) Monocytes % (Manual) Nucleated RBC % Seg Neutrophils # Seg Neutrophils # Man Monocytes # (Manual) PT INR Activated Clotting Time POC ABG pH 7.513 H POC ABG pCO2 22.1 L POC ABG pO2 64 L Sodium Potassium Chloride Carbon Dioxide BUN Creatinine Glucose POC Glucose 121 H Calcium Magnesium Direct Bilirubin AST ALT Alkaline Phosphatase Total Creatine Kinase CK-MB (CK-2) CK-MB (CK-2) Rel Index Troponin T C-Reactive Protein Total Protein Albumin Triglycerides 151 H Ur Specific [place] Urine WBC (Auto) Miscellaneous Test 04/01/17 04/02/17 04/02/17 18:17 00:11 04:52 WBC RBC Hgb Hct MCV MCH RDW Plt Count Lymph % (Auto) [place] % (Auto) Eos % (Auto) Baso % (Auto) Lymph # Baso # Seg Neutrophils % Lymphocytes % (Manual) Monocytes % (Manual) Nucleated RBC % Seg Neutrophils # Seg Neutrophils # Man Monocytes # (Manual) PT INR Activated Clotting Time POC ABG pH 7.524 H POC ABG pCO2 25.5 L POC ABG pO2 66 L Sodium Potassium Chloride Carbon Dioxide BUN Creatinine Glucose POC Glucose 117 H 122 H Calcium Magnesium Direct Bilirubin AST ALT Alkaline Phosphatase Total Creatine Kinase CK-MB (CK-2) CK-MB (CK-2) Rel Index Troponin T C-Reactive Protein Total Protein Albumin Triglycerides Ur Specific [place] Urine WBC (Auto) Miscellaneous Test 04/02/17 04/02/17 04/02/17 05:18 10:41 12:19 WBC RBC Hgb Hct MCV MCH RDW Plt Count Lymph % (Auto) [place] % (Auto) Eos % (Auto) Baso % (Auto) Lymph # Baso # Seg Neutrophils % Lymphocytes % (Manual) Monocytes % (Manual) Nucleated RBC % Seg Neutrophils # Seg Neutrophils # Man Monocytes # (Manual) PT INR Activated Clotting Time POC ABG pH 7.534 H POC ABG pCO2 27.4 L POC ABG pO2 Sodium Potassium Chloride Carbon Dioxide BUN Creatinine Glucose POC Glucose 132 H 129 H Calcium Magnesium Direct Bilirubin AST ALT Alkaline Phosphatase Total Creatine Kinase CK-MB (CK-2) CK-MB (CK-2) Rel Index Troponin T C-Reactive Protein Total Protein Albumin Triglycerides Ur Specific [place] Urine WBC (Auto) Miscellaneous Test 04/02/17 04/03/17 04/03/17 18:05 00:08 05:09 WBC RBC Hgb Hct MCV MCH RDW Plt Count Lymph % (Auto) [place] % (Auto) Eos % (Auto) Baso % (Auto) Lymph # Baso # Seg Neutrophils % Lymphocytes % (Manual) Monocytes % (Manual) Nucleated RBC % Seg Neutrophils # Seg Neutrophils # Man Monocytes # (Manual) PT INR Activated Clotting Time POC ABG pH 7.455 H POC ABG pCO2 33.2 L POC ABG pO2 120 H Sodium Potassium Chloride Carbon Dioxide BUN Creatinine Glucose POC Glucose 136 H 128 H Calcium Magnesium Direct Bilirubin AST ALT Alkaline Phosphatase Total Creatine Kinase CK-MB (CK-2) CK-MB (CK-2) Rel Index Troponin T C-Reactive Protein Total Protein Albumin Triglycerides Ur Specific [place] Urine WBC (Auto) Miscellaneous Test 04/03/17 04/03/17 04/03/17 06:32 11:54 12:16 WBC 11.9 H RBC Hgb Hct MCV MCH RDW Plt Count 125 L Lymph % (Auto) 4.8 L [place] % (Auto) Eos % (Auto) Baso % (Auto) Lymph # 0.6 L Baso # Seg Neutrophils % 86.7 H Lymphocytes % (Manual) Monocytes % (Manual) Nucleated RBC % Seg Neutrophils # 10.3 H Seg Neutrophils # Man Monocytes # (Manual) PT INR Activated Clotting Time POC ABG pH POC ABG pCO2 POC ABG pO2 Sodium Potassium Chloride Carbon Dioxide BUN Creatinine Glucose POC Glucose 138 H 143 H Calcium Magnesium Direct Bilirubin AST ALT Alkaline Phosphatase Total Creatine Kinase CK-MB (CK-2) CK-MB (CK-2) Rel Index Troponin T C-Reactive Protein Total Protein Albumin Triglycerides Ur Specific [place] Urine WBC (Auto) Miscellaneous Test 04/03/17 04/03/17 04/04/17 17:33 23:59 04:34 WBC RBC Hgb Hct MCV MCH RDW Plt Count Lymph % (Auto) [place] % (Auto) Eos % (Auto) Baso % (Auto) Lymph # Baso # Seg Neutrophils % Lymphocytes % (Manual) Monocytes % (Manual) Nucleated RBC % Seg Neutrophils # Seg Neutrophils # Man Monocytes # (Manual) PT INR Activated Clotting Time POC ABG pH 7.457 H POC ABG pCO2 29.8 L POC ABG pO2 76 L Sodium Potassium Chloride Carbon Dioxide BUN Creatinine Glucose POC Glucose 130 H 155 H Calcium Magnesium Direct Bilirubin AST ALT Alkaline Phosphatase Total Creatine Kinase CK-MB (CK-2) CK-MB (CK-2) Rel Index Troponin T C-Reactive Protein Total Protein Albumin Triglycerides Ur Specific [place] Urine WBC (Auto) Miscellaneous Test 04/04/17 04/04/17 04/04/17 05:27 12:22 18:18 WBC RBC Hgb Hct MCV MCH RDW Plt Count Lymph % (Auto) [place] % (Auto) Eos % (Auto) Baso % (Auto) Lymph # Baso # Seg Neutrophils % Lymphocytes % (Manual) Monocytes % (Manual) Nucleated RBC % Seg Neutrophils # Seg Neutrophils # Man Monocytes # (Manual) PT INR Activated Clotting Time POC ABG pH POC ABG pCO2 POC ABG pO2 Sodium Potassium Chloride Carbon Dioxide BUN Creatinine Glucose POC Glucose 164 H 146 H 130 H Calcium Magnesium Direct Bilirubin AST ALT Alkaline Phosphatase Total Creatine Kinase CK-MB (CK-2) CK-MB (CK-2) Rel Index Troponin T C-Reactive Protein Total Protein Albumin Triglycerides Ur Specific [place] Urine WBC (Auto) Miscellaneous Test 04/05/17 04/05/17 04/05/17 04:43 05:28 11:36 WBC RBC Hgb Hct MCV MCH RDW Plt Count Lymph % (Auto) [place] % (Auto) Eos % (Auto) Baso % (Auto) Lymph # Baso # Seg Neutrophils % Lymphocytes % (Manual) Monocytes % (Manual) Nucleated RBC % Seg Neutrophils # Seg Neutrophils # Man Monocytes # (Manual) PT INR Activated Clotting Time POC ABG pH 7.479 H POC ABG pCO2 33.5 L POC ABG pO2 76 L Sodium Potassium Chloride Carbon Dioxide BUN Creatinine Glucose POC Glucose 145 H 136 H Calcium Magnesium Direct Bilirubin AST ALT Alkaline Phosphatase Total Creatine Kinase CK-MB (CK-2) CK-MB (CK-2) Rel Index Troponin T C-Reactive Protein Total Protein Albumin Triglycerides Ur Specific [place] Urine WBC (Auto) Miscellaneous Test 04/05/17 04/06/17 04/06/17 17:58 00:16 05:26 WBC RBC Hgb Hct MCV MCH RDW Plt Count Lymph % (Auto) [place] % (Auto) Eos % (Auto) Baso % (Auto) Lymph # Baso # Seg Neutrophils % Lymphocytes % (Manual) Monocytes % (Manual) Nucleated RBC % Seg Neutrophils # Seg Neutrophils # Man Monocytes # (Manual) PT INR Activated Clotting Time POC ABG pH POC ABG pCO2 POC ABG pO2 Sodium Potassium Chloride Carbon Dioxide BUN Creatinine Glucose POC Glucose 130 H 159 H 146 H Calcium Magnesium Direct Bilirubin AST ALT Alkaline Phosphatase Total Creatine Kinase CK-MB (CK-2) CK-MB (CK-2) Rel Index Troponin T C-Reactive Protein Total Protein Albumin Triglycerides Ur Specific [place] Urine WBC (Auto) Miscellaneous Test 04/06/17 04/06/17 04/07/17 13:11 16:54 11:45 WBC RBC Hgb Hct MCV MCH RDW Plt Count Lymph % (Auto) [place] % (Auto) Eos % (Auto) Baso % (Auto) Lymph # Baso # Seg Neutrophils % Lymphocytes % (Manual) Monocytes % (Manual) Nucleated RBC % Seg Neutrophils # Seg Neutrophils # Man Monocytes # (Manual) PT INR Activated Clotting Time POC ABG pH 7.517 H POC ABG pCO2 32.1 L POC ABG pO2 Sodium Potassium Chloride Carbon Dioxide BUN Creatinine Glucose POC Glucose 132 H 123 H Calcium Magnesium Direct Bilirubin AST ALT Alkaline Phosphatase Total Creatine Kinase CK-MB (CK-2) CK-MB (CK-2) Rel Index Troponin T C-Reactive Protein Total Protein Albumin Triglycerides Ur Specific [place] Urine WBC (Auto) Miscellaneous Test 04/07/17 04/07/17 04/07/17 12:51 17:40 23:55 WBC RBC Hgb Hct MCV MCH RDW Plt Count Lymph % (Auto) [place] % (Auto) Eos % (Auto) Baso % (Auto) Lymph # Baso # Seg Neutrophils % Lymphocytes % (Manual) Monocytes % (Manual) Nucleated RBC % Seg Neutrophils # Seg Neutrophils # Man Monocytes # (Manual) PT INR Activated Clotting Time POC ABG pH POC ABG pCO2 POC ABG pO2 Sodium Potassium Chloride Carbon Dioxide BUN Creatinine Glucose POC Glucose 138 H 154 H 143 H Calcium Magnesium Direct Bilirubin AST ALT Alkaline Phosphatase Total Creatine Kinase CK-MB (CK-2) CK-MB (CK-2) Rel Index Troponin T C-Reactive Protein Total Protein Albumin Triglycerides Ur Specific [place] Urine WBC (Auto) Miscellaneous Test 04/08/17 04/08/17 04/08/17 05:27 11:14 17:44 WBC RBC Hgb Hct MCV MCH RDW Plt Count Lymph % (Auto) [place] % (Auto) Eos % (Auto) Baso % (Auto) Lymph # Baso # Seg Neutrophils % Lymphocytes % (Manual) Monocytes % (Manual) Nucleated RBC % Seg Neutrophils # Seg Neutrophils # Man Monocytes # (Manual) PT INR Activated Clotting Time POC ABG pH POC ABG pCO2 POC ABG pO2 Sodium Potassium Chloride Carbon Dioxide BUN Creatinine Glucose POC Glucose 142 H 153 H 129 H Calcium Magnesium Direct Bilirubin AST ALT Alkaline Phosphatase Total Creatine Kinase CK-MB (CK-2) CK-MB (CK-2) Rel Index Troponin T C-Reactive Protein Total Protein Albumin Triglycerides Ur Specific [place] Urine WBC (Auto) Miscellaneous Test 04/09/17 04/09/17 04/09/17 08:20 11:21 17:37 WBC RBC Hgb Hct MCV MCH RDW Plt Count Lymph % (Auto) [place] % (Auto) Eos % (Auto) Baso % (Auto) Lymph # Baso # Seg Neutrophils % Lymphocytes % (Manual) Monocytes % (Manual) Nucleated RBC % Seg Neutrophils # Seg Neutrophils # Man Monocytes # (Manual) PT INR Activated Clotting Time POC ABG pH POC ABG pCO2 POC ABG pO2 Sodium 147 H Potassium Chloride 108.8 H Carbon Dioxide BUN 39 H Creatinine 0.5 L Glucose 138 H POC Glucose 152 H 109 H Calcium Magnesium Direct Bilirubin AST ALT Alkaline Phosphatase Total Creatine Kinase CK-MB (CK-2) CK-MB (CK-2) Rel Index Troponin T C-Reactive Protein Total Protein Albumin Triglycerides Ur Specific [place] Urine WBC (Auto) Miscellaneous Test 04/10/17 04/10/17 04/10/17 00:13 04:16 04:16 WBC RBC Hgb 11.5 L Hct MCV 96 H MCH RDW Plt Count 103 L Lymph % (Auto) 11.1 L [place] % (Auto) Eos % (Auto) Baso % (Auto) Lymph # Baso # Seg Neutrophils % 81.5 H Lymphocytes % (Manual) Monocytes % (Manual) Nucleated RBC % Seg Neutrophils # 8.8 H Seg Neutrophils # Man Monocytes # (Manual) PT INR Activated Clotting Time POC ABG pH POC ABG pCO2 POC ABG pO2 Sodium 148 H Potassium Chloride 109.0 H Carbon Dioxide BUN 36 H Creatinine 0.5 L Glucose 131 H POC Glucose 127 H Calcium 8.1 L Magnesium 2.40 H Direct Bilirubin AST 206 H ALT 228 H Alkaline Phosphatase 178 H Total Creatine Kinase CK-MB (CK-2) CK-MB (CK-2) Rel Index Troponin T C-Reactive Protein Total Protein Albumin 2.8 L Triglycerides Ur Specific [place] Urine WBC (Auto) Miscellaneous Test 04/10/17 04/10/17 04/10/17 06:01 11:57 18:27 WBC RBC Hgb Hct MCV MCH RDW Plt Count Lymph % (Auto) [place] % (Auto) Eos % (Auto) Baso % (Auto) Lymph # Baso # Seg Neutrophils % Lymphocytes % (Manual) Monocytes % (Manual) Nucleated RBC % Seg Neutrophils # Seg Neutrophils # Man Monocytes # (Manual) PT INR Activated Clotting Time POC ABG pH POC ABG pCO2 POC ABG pO2 Sodium Potassium Chloride Carbon Dioxide BUN Creatinine Glucose POC Glucose 108 H 154 H 130 H Calcium Magnesium Direct Bilirubin AST ALT Alkaline Phosphatase Total Creatine Kinase CK-MB (CK-2) CK-MB (CK-2) Rel Index Troponin T C-Reactive Protein Total Protein Albumin Triglycerides Ur Specific [place] Urine WBC (Auto) Miscellaneous Test 04/11/17 04/11/17 04/12/17 12:25 17:10 00:22 WBC RBC Hgb Hct MCV MCH RDW Plt Count Lymph % (Auto) [place] % (Auto) Eos % (Auto) Baso % (Auto) Lymph # Baso # Seg Neutrophils % Lymphocytes % (Manual) Monocytes % (Manual) Nucleated RBC % Seg Neutrophils # Seg Neutrophils # Man Monocytes # (Manual) PT INR Activated Clotting Time POC ABG pH POC ABG pCO2 POC ABG pO2 Sodium Potassium Chloride Carbon Dioxide BUN Creatinine Glucose POC Glucose 107 H 129 H 128 H Calcium Magnesium Direct Bilirubin AST ALT Alkaline Phosphatase Total Creatine Kinase CK-MB (CK-2) CK-MB (CK-2) Rel Index Troponin T C-Reactive Protein Total Protein Albumin Triglycerides Ur Specific [place] Urine WBC (Auto) Miscellaneous Test 04/12/17 04/12/17 04/12/17 05:00 11:57 17:47 WBC RBC Hgb Hct MCV MCH RDW Plt Count Lymph % (Auto) [place] % (Auto) Eos % (Auto) Baso % (Auto) Lymph # Baso # Seg Neutrophils % Lymphocytes % (Manual) Monocytes % (Manual) Nucleated RBC % Seg Neutrophils # Seg Neutrophils # Man Monocytes # (Manual) PT INR Activated Clotting Time POC ABG pH POC ABG pCO2 POC ABG pO2 Sodium Potassium Chloride Carbon Dioxide BUN Creatinine Glucose POC Glucose 140 H 142 H Calcium Magnesium Direct Bilirubin AST 158 H ALT 184 H Alkaline Phosphatase 170 H Total Creatine Kinase CK-MB (CK-2) CK-MB (CK-2) Rel Index Troponin T C-Reactive Protein Total Protein Albumin 2.8 L Triglycerides Ur Specific [place] Urine WBC (Auto) Miscellaneous Test 04/12/17 04/12/17 04/13/17 21:36 21:36 01:37 WBC RBC Hgb Hct MCV MCH RDW Plt Count Lymph % (Auto) [place] % (Auto) Eos % (Auto) Baso % (Auto) Lymph # Baso # Seg Neutrophils % Lymphocytes % (Manual) Monocytes % (Manual) Nucleated RBC % Seg Neutrophils # Seg Neutrophils # Man Monocytes # (Manual) PT INR Activated Clotting Time POC ABG pH POC ABG pCO2 POC ABG pO2 Sodium Potassium Chloride Carbon Dioxide BUN Creatinine Glucose POC Glucose 126 H Calcium Magnesium Direct Bilirubin AST ALT Alkaline Phosphatase Total Creatine Kinase 1404 H CK-MB (CK-2) 8.0 H CK-MB (CK-2) Rel Index Troponin T 0.767 H* C-Reactive Protein Total Protein Albumin Triglycerides Ur Specific [place] Urine WBC (Auto) Miscellaneous Test 04/13/17 04/13/17 04/13/17 04:45 04:52 12:17 WBC RBC Hgb Hct MCV MCH RDW Plt Count Lymph % (Auto) [place] % (Auto) Eos % (Auto) Baso % (Auto) Lymph # Baso # Seg Neutrophils % Lymphocytes % (Manual) Monocytes % (Manual) Nucleated RBC % Seg Neutrophils # Seg Neutrophils # Man Monocytes # (Manual) PT INR Activated Clotting Time POC ABG pH POC ABG pCO2 POC ABG pO2 Sodium 148 H Potassium Chloride 112.8 H Carbon Dioxide BUN 33 H Creatinine 0.4 L Glucose 121 H POC Glucose 126 H 149 H Calcium Magnesium Direct Bilirubin AST 160 H ALT 189 H Alkaline Phosphatase 166 H Total Creatine Kinase CK-MB (CK-2) CK-MB (CK-2) Rel Index Troponin T C-Reactive Protein Total Protein Albumin 2.6 L Triglycerides Ur Specific [place] Urine WBC (Auto) Miscellaneous Test 04/13/17 04/14/17 04/14/17 17:45 00:20 00:45 WBC RBC Hgb Hct MCV MCH RDW Plt Count Lymph % (Auto) [place] % (Auto) Eos % (Auto) Baso % (Auto) Lymph # Baso # Seg Neutrophils % Lymphocytes % (Manual) Monocytes % (Manual) Nucleated RBC % Seg Neutrophils # Seg Neutrophils # Man Monocytes # (Manual) PT INR Activated Clotting Time POC ABG pH POC ABG pCO2 POC ABG pO2 Sodium Potassium Chloride Carbon Dioxide BUN Creatinine Glucose POC Glucose 130 H 144 H 144 H Calcium Magnesium Direct Bilirubin AST ALT Alkaline Phosphatase Total Creatine Kinase CK-MB (CK-2) CK-MB (CK-2) Rel Index Troponin T C-Reactive Protein Total Protein Albumin Triglycerides Ur Specific [place] Urine WBC (Auto) Miscellaneous Test 04/14/17 04/14/17 04/14/17 05:40 11:06 11:31 WBC RBC Hgb Hct MCV MCH RDW Plt Count Lymph % (Auto) [place] % (Auto) Eos % (Auto) Baso % (Auto) Lymph # Baso # Seg Neutrophils % Lymphocytes % (Manual) Monocytes % (Manual) Nucleated RBC % Seg Neutrophils # Seg Neutrophils # Man Monocytes # (Manual) PT INR Activated Clotting Time POC ABG pH POC ABG pCO2 POC ABG pO2 Sodium Potassium Chloride Carbon Dioxide BUN Creatinine Glucose POC Glucose 139 H 123 H Calcium Magnesium Direct Bilirubin AST ALT Alkaline Phosphatase Total Creatine Kinase CK-MB (CK-2) CK-MB (CK-2) Rel Index Troponin T C-Reactive Protein Total Protein Albumin Triglycerides Ur Specific [place] 1.033 H Urine WBC (Auto) > 182.0 H Miscellaneous Test 04/14/17 04/14/17 04/15/17 18:00 23:52 05:15 WBC 12.5 H RBC 3.38 L Hgb 10.6 L Hct 32.7 L MCV 97 H MCH RDW Plt Count 107 L Lymph % (Auto) 8.7 L [place] % (Auto) Eos % (Auto) Baso % (Auto) Lymph # 1.1 L Baso # Seg Neutrophils % 86.1 H Lymphocytes % (Manual) Monocytes % (Manual) Nucleated RBC % Seg Neutrophils # 10.7 H Seg Neutrophils # Man Monocytes # (Manual) PT INR Activated Clotting Time POC ABG pH POC ABG pCO2 POC ABG pO2 Sodium Potassium Chloride Carbon Dioxide BUN Creatinine Glucose POC Glucose 133 H 133 H Calcium Magnesium Direct Bilirubin AST ALT Alkaline Phosphatase Total Creatine Kinase CK-MB (CK-2) CK-MB (CK-2) Rel Index Troponin T C-Reactive Protein Total Protein Albumin Triglycerides Ur Specific [place] Urine WBC (Auto) Miscellaneous Test 04/15/17 04/15/17 04/15/17 05:15 05:25 11:50 WBC RBC Hgb Hct MCV MCH RDW Plt Count Lymph % (Auto) [place] % (Auto) Eos % (Auto) Baso % (Auto) Lymph # Baso # Seg Neutrophils % Lymphocytes % (Manual) Monocytes % (Manual) Nucleated RBC % Seg Neutrophils # Seg Neutrophils # Man Monocytes # (Manual) PT INR Activated Clotting Time POC ABG pH POC ABG pCO2 POC ABG pO2 Sodium 149 H Potassium 3.5 L Chloride 114.1 H Carbon Dioxide 21 L BUN 29 H Creatinine 0.4 L Glucose 128 H POC Glucose 133 H 107 H Calcium 8.3 L Magnesium Direct Bilirubin 0.4 H AST 149 H ALT 182 H Alkaline Phosphatase 143 H Total Creatine Kinase CK-MB (CK-2) CK-MB (CK-2) Rel Index Troponin T C-Reactive Protein Total Protein Albumin 2.5 L Triglycerides Ur Specific [place] Urine WBC (Auto) Miscellaneous Test 04/15/17 04/16/17 04/16/17 16:55 00:02 03:17 WBC RBC 3.39 L Hgb 10.5 L Hct 32.4 L MCV 96 H MCH RDW Plt Count 106 L Lymph % (Auto) 6.7 L [place] % (Auto) Eos % (Auto) Baso % (Auto) Lymph # 0.6 L Baso # Seg Neutrophils % 86.8 H Lymphocytes % (Manual) Monocytes % (Manual) Nucleated RBC % Seg Neutrophils # 8.2 H Seg Neutrophils # Man Monocytes # (Manual) PT INR Activated Clotting Time POC ABG pH POC ABG pCO2 POC ABG pO2 Sodium Potassium Chloride Carbon Dioxide BUN Creatinine Glucose POC Glucose 146 H 148 H Calcium Magnesium Direct Bilirubin AST ALT Alkaline Phosphatase Total Creatine Kinase CK-MB (CK-2) CK-MB (CK-2) Rel Index Troponin T C-Reactive Protein Total Protein Albumin Triglycerides Ur Specific [place] Urine WBC (Auto) Miscellaneous Test 04/16/17 04/16/17 04/16/17 03:17 05:19 11:13 WBC RBC Hgb Hct MCV MCH RDW Plt Count Lymph % (Auto) [place] % (Auto) Eos % (Auto) Baso % (Auto) Lymph # Baso # Seg Neutrophils % Lymphocytes % (Manual) Monocytes % (Manual) Nucleated RBC % Seg Neutrophils # Seg Neutrophils # Man Monocytes # (Manual) PT INR Activated Clotting Time POC ABG pH POC ABG pCO2 POC ABG pO2 Sodium 149 H Potassium Chloride 111.1 H Carbon Dioxide 20 L BUN 27 H Creatinine 0.3 L Glucose 156 H POC Glucose 171 H 169 H Calcium 8.3 L Magnesium Direct Bilirubin AST ALT Alkaline Phosphatase Total Creatine Kinase CK-MB (CK-2) CK-MB (CK-2) Rel Index Troponin T C-Reactive Protein Total Protein Albumin Triglycerides Ur Specific [place] Urine WBC (Auto) Miscellaneous Test 04/16/17 04/17/17 04/17/17 17:03 00:00 05:09 WBC RBC Hgb Hct MCV MCH RDW Plt Count Lymph % (Auto) [place] % (Auto) Eos % (Auto) Baso % (Auto) Lymph # Baso # Seg Neutrophils % Lymphocytes % (Manual) Monocytes % (Manual) Nucleated RBC % Seg Neutrophils # Seg Neutrophils # Man Monocytes # (Manual) PT INR Activated Clotting Time POC ABG pH POC ABG pCO2 POC ABG pO2 Sodium Potassium Chloride Carbon Dioxide BUN Creatinine Glucose POC Glucose 151 H 165 H 145 H Calcium Magnesium Direct Bilirubin AST ALT Alkaline Phosphatase Total Creatine Kinase CK-MB (CK-2) CK-MB (CK-2) Rel Index Troponin T C-Reactive Protein Total Protein Albumin Triglycerides Ur Specific [place] Urine WBC (Auto) Miscellaneous Test 04/17/17 04/17/17 04/18/17 11:38 17:47 00:01 WBC RBC Hgb Hct MCV MCH RDW Plt Count Lymph % (Auto) [place] % (Auto) Eos % (Auto) Baso % (Auto) Lymph # Baso # Seg Neutrophils % Lymphocytes % (Manual) Monocytes % (Manual) Nucleated RBC % Seg Neutrophils # Seg Neutrophils # Man Monocytes # (Manual) PT INR Activated Clotting Time POC ABG pH POC ABG pCO2 POC ABG pO2 Sodium Potassium Chloride Carbon Dioxide BUN Creatinine Glucose POC Glucose 170 H 161 H 131 H Calcium Magnesium Direct Bilirubin AST ALT Alkaline Phosphatase Total Creatine Kinase CK-MB (CK-2) CK-MB (CK-2) Rel Index Troponin T C-Reactive Protein Total Protein Albumin Triglycerides Ur Specific [place] Urine WBC (Auto) Miscellaneous Test 04/18/17 04/18/17 04/18/17 03:55 03:55 05:30 WBC RBC 3.05 L Hgb 9.8 L Hct 29.0 L MCV 95 H MCH RDW Plt Count 113 L Lymph % (Auto) [place] % (Auto) Eos % (Auto) 5.3 H Baso % (Auto) Lymph # Baso # Seg Neutrophils % 71.5 H Lymphocytes % (Manual) Monocytes % (Manual) Nucleated RBC % Seg Neutrophils # Seg Neutrophils # Man Monocytes # (Manual) PT INR Activated Clotting Time POC ABG pH 7.460 H POC ABG pCO2 30.8 L POC ABG pO2 129 H Sodium Potassium Chloride Carbon Dioxide 21 L BUN 25 H Creatinine 0.4 L Glucose 123 H POC Glucose Calcium 8.3 L Magnesium Direct Bilirubin AST ALT Alkaline Phosphatase Total Creatine Kinase CK-MB (CK-2) CK-MB (CK-2) Rel Index Troponin T C-Reactive Protein Total Protein Albumin Triglycerides Ur Specific [place] Urine WBC (Auto) Miscellaneous Test 04/18/17 04/18/17 04/19/17 17:10 23:40 04:36 WBC RBC 3.21 L Hgb 10.2 L Hct 30.4 L MCV 95 H MCH RDW Plt Count 131 L Lymph % (Auto) 12.1 L [place] % (Auto) Eos % (Auto) 4.7 H Baso % (Auto) 2.4 H Lymph # 0.9 L Baso # 0.2 H Seg Neutrophils % 75.0 H Lymphocytes % (Manual) Monocytes % (Manual) Nucleated RBC % Seg Neutrophils # Seg Neutrophils # Man Monocytes # (Manual) PT INR Activated Clotting Time POC ABG pH POC ABG pCO2 POC ABG pO2 Sodium Potassium Chloride Carbon Dioxide BUN Creatinine Glucose POC Glucose 135 H 157 H Calcium Magnesium Direct Bilirubin AST ALT Alkaline Phosphatase Total Creatine Kinase CK-MB (CK-2) CK-MB (CK-2) Rel Index Troponin T C-Reactive Protein Total Protein Albumin Triglycerides Ur Specific [place] Urine WBC (Auto) Miscellaneous Test 04/19/17 04/19/17 04/19/17 04:36 05:12 06:50 WBC RBC Hgb Hct MCV MCH RDW Plt Count Lymph % (Auto) [place] % (Auto) Eos % (Auto) Baso % (Auto) Lymph # Baso # Seg Neutrophils % Lymphocytes % (Manual) Monocytes % (Manual) Nucleated RBC % Seg Neutrophils # Seg Neutrophils # Man Monocytes # (Manual) PT INR Activated Clotting Time POC ABG pH 7.516 H POC ABG pCO2 28.0 L POC ABG pO2 Sodium Potassium Chloride Carbon Dioxide 21 L BUN 23 H Creatinine 0.2 L Glucose 137 H POC Glucose 131 H Calcium 7.9 L Magnesium Direct Bilirubin AST ALT Alkaline Phosphatase Total Creatine Kinase CK-MB (CK-2) CK-MB (CK-2) Rel Index Troponin T C-Reactive Protein Total Protein Albumin Triglycerides Ur Specific [place] Urine WBC (Auto) Miscellaneous Test 04/19/17 04/19/17 04/20/17 12:36 17:42 00:12 WBC RBC Hgb Hct MCV MCH RDW Plt Count Lymph % (Auto) [place] % (Auto) Eos % (Auto) Baso % (Auto) Lymph # Baso # Seg Neutrophils % Lymphocytes % (Manual) Monocytes % (Manual) Nucleated RBC % Seg Neutrophils # Seg Neutrophils # Man Monocytes # (Manual) PT INR Activated Clotting Time POC ABG pH POC ABG pCO2 POC ABG pO2 Sodium Potassium Chloride Carbon Dioxide BUN Creatinine Glucose POC Glucose 128 H 140 H 132 H Calcium Magnesium Direct Bilirubin AST ALT Alkaline Phosphatase Total Creatine Kinase CK-MB (CK-2) CK-MB (CK-2) Rel Index Troponin T C-Reactive Protein Total Protein Albumin Triglycerides Ur Specific [place] Urine WBC (Auto) Miscellaneous Test 04/20/17 04/20/17 04/20/17 03:35 03:35 05:10 WBC RBC 3.34 L Hgb 10.4 L Hct 31.6 L MCV 95 H MCH RDW Plt Count Lymph % (Auto) 12.9 L [place] % (Auto) Eos % (Auto) Baso % (Auto) Lymph # Baso # Seg Neutrophils % 77.3 H Lymphocytes % (Manual) Monocytes % (Manual) Nucleated RBC % Seg Neutrophils # Seg Neutrophils # Man Monocytes # (Manual) PT INR Activated Clotting Time POC ABG pH POC ABG pCO2 POC ABG pO2 Sodium Potassium Chloride Carbon Dioxide BUN Creatinine 0.3 L Glucose 155 H POC Glucose 135 H Calcium 7.8 L Magnesium Direct Bilirubin AST ALT Alkaline Phosphatase Total Creatine Kinase CK-MB (CK-2) CK-MB (CK-2) Rel Index Troponin T C-Reactive Protein Total Protein Albumin Triglycerides Ur Specific [place] Urine WBC (Auto) Miscellaneous Test 04/20/17 04/20/17 04/21/17 12:49 18:21 00:05 WBC RBC Hgb Hct MCV MCH RDW Plt Count Lymph % (Auto) [place] % (Auto) Eos % (Auto) Baso % (Auto) Lymph # Baso # Seg Neutrophils % Lymphocytes % (Manual) Monocytes % (Manual) Nucleated RBC % Seg Neutrophils # Seg Neutrophils # Man Monocytes # (Manual) PT INR Activated Clotting Time POC ABG pH POC ABG pCO2 POC ABG pO2 Sodium Potassium Chloride Carbon Dioxide BUN Creatinine Glucose POC Glucose 155 H 165 H 141 H Calcium Magnesium Direct Bilirubin AST ALT Alkaline Phosphatase Total Creatine Kinase CK-MB (CK-2) CK-MB (CK-2) Rel Index Troponin T C-Reactive Protein Total Protein Albumin Triglycerides Ur Specific [place] Urine WBC (Auto) Miscellaneous Test 01/26/18 01/26/18 01/26/18 06:00 12:11 17:04 WBC RBC Hgb Hct MCV MCH RDW Plt Count Lymph % (Auto) [place] % (Auto) Eos % (Auto) Baso % (Auto) Lymph # Baso # Seg Neutrophils % Lymphocytes % (Manual) Monocytes % (Manual) Nucleated RBC % Seg Neutrophils # Seg Neutrophils # Man Monocytes # (Manual) PT INR Activated Clotting Time POC ABG pH POC ABG pCO2 POC ABG pO2 Sodium Potassium Chloride Carbon Dioxide BUN Creatinine Glucose POC Glucose 152 H 165 H 156 H Calcium Magnesium Direct Bilirubin AST ALT Alkaline Phosphatase Total Creatine Kinase CK-MB (CK-2) CK-MB (CK-2) Rel Index Troponin T C-Reactive Protein Total Protein Albumin Triglycerides Ur Specific [place] Urine WBC (Auto) Miscellaneous Test 04/21/17 04/21/17 04/22/17 22:00 23:59 05:49 WBC RBC Hgb Hct MCV MCH RDW Plt Count Lymph % (Auto) [place] % (Auto) Eos % (Auto) Baso % (Auto) Lymph # Baso # Seg Neutrophils % Lymphocytes % (Manual) Monocytes % (Manual) Nucleated RBC % Seg Neutrophils # Seg Neutrophils # Man Monocytes # (Manual) PT INR Activated Clotting Time POC ABG pH POC ABG pCO2 POC ABG pO2 Sodium Potassium Chloride Carbon Dioxide BUN Creatinine Glucose POC Glucose 166 H 173 H Calcium Magnesium Direct Bilirubin AST ALT Alkaline Phosphatase Total Creatine Kinase CK-MB (CK-2) CK-MB (CK-2) Rel Index Troponin T C-Reactive Protein Total Protein Albumin Triglycerides Ur Specific [place] Urine WBC (Auto) 10.0 H Miscellaneous Test 04/22/17 04/22/17 04/23/17 11:11 18:04 00:37 WBC RBC Hgb Hct MCV MCH RDW Plt Count Lymph % (Auto) [place] % (Auto) Eos % (Auto) Baso % (Auto) Lymph # Baso # Seg Neutrophils % Lymphocytes % (Manual) Monocytes % (Manual) Nucleated RBC % Seg Neutrophils # Seg Neutrophils # Man Monocytes # (Manual) PT INR Activated Clotting Time POC ABG pH POC ABG pCO2 POC ABG pO2 Sodium Potassium Chloride Carbon Dioxide BUN Creatinine Glucose POC Glucose 172 H 140 H 135 H Calcium Magnesium Direct Bilirubin AST ALT Alkaline Phosphatase Total Creatine Kinase CK-MB (CK-2) CK-MB (CK-2) Rel Index Troponin T C-Reactive Protein Total Protein Albumin Triglycerides Ur Specific [place] Urine WBC (Auto) Miscellaneous Test 04/23/17 04/23/17 04/23/17 05:33 06:20 11:10 WBC RBC 3.19 L Hgb 9.9 L Hct 30.0 L MCV MCH RDW Plt Count Lymph % (Auto) 8.0 L [place] % (Auto) Eos % (Auto) Baso % (Auto) Lymph # 0.8 L Baso # Seg Neutrophils % 84.5 H Lymphocytes % (Manual) Monocytes % (Manual) Nucleated RBC % Seg Neutrophils # 8.2 H Seg Neutrophils # Man Monocytes # (Manual) PT INR Activated Clotting Time POC ABG pH POC ABG pCO2 POC ABG pO2 Sodium Potassium Chloride Carbon Dioxide BUN Creatinine Glucose POC Glucose 134 H 134 H Calcium Magnesium Direct Bilirubin AST ALT Alkaline Phosphatase Total Creatine Kinase CK-MB (CK-2) CK-MB (CK-2) Rel Index Troponin T C-Reactive Protein Total Protein Albumin Triglycerides Ur Specific [place] Urine WBC (Auto) Miscellaneous Test 04/23/17 04/24/17 04/24/17 17:26 00:53 06:46 WBC RBC Hgb Hct MCV MCH RDW Plt Count Lymph % (Auto) [place] % (Auto) Eos % (Auto) Baso % (Auto) Lymph # Baso # Seg Neutrophils % Lymphocytes % (Manual) Monocytes % (Manual) Nucleated RBC % Seg Neutrophils # Seg Neutrophils # Man Monocytes # (Manual) PT INR Activated Clotting Time POC ABG pH POC ABG pCO2 POC ABG pO2 Sodium Potassium Chloride Carbon Dioxide BUN Creatinine Glucose POC Glucose 164 H 146 H 125 H Calcium Magnesium Direct Bilirubin AST ALT Alkaline Phosphatase Total Creatine Kinase CK-MB (CK-2) CK-MB (CK-2) Rel Index Troponin T C-Reactive Protein Total Protein Albumin Triglycerides Ur Specific [place] Urine WBC (Auto) Miscellaneous Test 04/24/17 04/24/17 04/24/17 11:55 17:50 23:36 WBC RBC Hgb Hct MCV MCH RDW Plt Count Lymph % (Auto) [place] % (Auto) Eos % (Auto) Baso % (Auto) Lymph # Baso # Seg Neutrophils % Lymphocytes % (Manual) Monocytes % (Manual) Nucleated RBC % Seg Neutrophils # Seg Neutrophils # Man Monocytes # (Manual) PT INR Activated Clotting Time POC ABG pH POC ABG pCO2 POC ABG pO2 Sodium Potassium Chloride Carbon Dioxide BUN Creatinine Glucose POC Glucose 156 H 146 H 131 H Calcium Magnesium Direct Bilirubin AST ALT Alkaline Phosphatase Total Creatine Kinase CK-MB (CK-2) CK-MB (CK-2) Rel Index Troponin T C-Reactive Protein Total Protein Albumin Triglycerides Ur Specific [place] Urine WBC (Auto) Miscellaneous Test 04/25/17 04/25/17 04/25/17 04:51 05:16 07:07 WBC RBC Hgb Hct MCV MCH RDW Plt Count Lymph % (Auto) [place] % (Auto) Eos % (Auto) Baso % (Auto) Lymph # Baso # Seg Neutrophils % Lymphocytes % (Manual) Monocytes % (Manual) Nucleated RBC % Seg Neutrophils # Seg Neutrophils # Man Monocytes # (Manual) PT INR Activated Clotting Time POC ABG pH POC ABG pCO2 POC ABG pO2 Sodium Potassium Chloride Carbon Dioxide BUN Creatinine Glucose POC Glucose 139 H Calcium Magnesium Direct Bilirubin AST 105 H ALT 204 H Alkaline Phosphatase 189 H Total Creatine Kinase CK-MB (CK-2) CK-MB (CK-2) Rel Index Troponin T C-Reactive Protein Total Protein Albumin 2.4 L Triglycerides Ur Specific [place] Urine WBC (Auto) Miscellaneous Test Flexitest 1 H 04/25/17 04/25/17 04/25/17 12:29 17:23 23:32 WBC RBC Hgb Hct MCV MCH RDW Plt Count Lymph % (Auto) [place] % (Auto) Eos % (Auto) Baso % (Auto) Lymph # Baso # Seg Neutrophils % Lymphocytes % (Manual) Monocytes % (Manual) Nucleated RBC % Seg Neutrophils # Seg Neutrophils # Man Monocytes # (Manual) PT INR Activated Clotting Time POC ABG pH POC ABG pCO2 POC ABG pO2 Sodium Potassium Chloride Carbon Dioxide BUN Creatinine Glucose POC Glucose 132 H 133 H 128 H Calcium Magnesium Direct Bilirubin AST ALT Alkaline Phosphatase Total Creatine Kinase CK-MB (CK-2) CK-MB (CK-2) Rel Index Troponin T C-Reactive Protein Total Protein Albumin Triglycerides Ur Specific [place] Urine WBC (Auto) Miscellaneous Test 04/26/17 04/26/17 04/26/17 05:24 11:28 17:09 WBC RBC Hgb Hct MCV MCH RDW Plt Count Lymph % (Auto) [place] % (Auto) Eos % (Auto) Baso % (Auto) Lymph # Baso # Seg Neutrophils % Lymphocytes % (Manual) Monocytes % (Manual) Nucleated RBC % Seg Neutrophils # Seg Neutrophils # Man Monocytes # (Manual) PT INR Activated Clotting Time POC ABG pH POC ABG pCO2 POC ABG pO2 Sodium Potassium Chloride Carbon Dioxide BUN Creatinine Glucose POC Glucose 132 H 146 H 141 H Calcium Magnesium Direct Bilirubin AST ALT Alkaline Phosphatase Total Creatine Kinase CK-MB (CK-2) CK-MB (CK-2) Rel Index Troponin T C-Reactive Protein Total Protein Albumin Triglycerides Ur Specific [place] Urine WBC (Auto) Miscellaneous Test 04/26/17 04/27/17 04/27/17 23:52 05:40 05:40 WBC RBC 3.22 L Hgb 10.0 L Hct 29.9 L MCV MCH RDW Plt Count Lymph % (Auto) [place] % (Auto) Eos % (Auto) Baso % (Auto) Lymph # Baso # Seg Neutrophils % 76.6 H Lymphocytes % (Manual) Monocytes % (Manual) Nucleated RBC % Seg Neutrophils # Seg Neutrophils # Man Monocytes # (Manual) PT INR Activated Clotting Time POC ABG pH POC ABG pCO2 POC ABG pO2 Sodium Potassium Chloride Carbon Dioxide BUN Creatinine Glucose POC Glucose 140 H Calcium Magnesium Direct Bilirubin AST 66 H ALT 137 H Alkaline Phosphatase 169 H Total Creatine Kinase CK-MB (CK-2) CK-MB (CK-2) Rel Index Troponin T C-Reactive Protein Total Protein 6.2 L Albumin 2.6 L Triglycerides Ur Specific [place] Urine WBC (Auto) Miscellaneous Test 04/27/17 04/27/17 04/27/17 05:40 06:10 11:13 WBC RBC Hgb Hct MCV MCH RDW Plt Count Lymph % (Auto) [place] % (Auto) Eos % (Auto) Baso % (Auto) Lymph # Baso # Seg Neutrophils % Lymphocytes % (Manual) Monocytes % (Manual) Nucleated RBC % Seg Neutrophils # Seg Neutrophils # Man Monocytes # (Manual) PT INR Activated Clotting Time POC ABG pH POC ABG pCO2 POC ABG pO2 Sodium Potassium Chloride Carbon Dioxide BUN Creatinine 0.2 L Glucose 139 H POC Glucose 130 H 151 H Calcium Magnesium Direct Bilirubin AST ALT Alkaline Phosphatase Total Creatine Kinase CK-MB (CK-2) CK-MB (CK-2) Rel Index Troponin T C-Reactive Protein Total Protein Albumin Triglycerides Ur Specific [place] Urine WBC (Auto) Miscellaneous Test 04/27/17 04/27/17 04/28/17 17:37 23:19 05:24 WBC RBC Hgb Hct MCV MCH RDW Plt Count Lymph % (Auto) [place] % (Auto) Eos % (Auto) Baso % (Auto) Lymph # Baso # Seg Neutrophils % Lymphocytes % (Manual) Monocytes % (Manual) Nucleated RBC % Seg Neutrophils # Seg Neutrophils # Man Monocytes # (Manual) PT INR Activated Clotting Time POC ABG pH POC ABG pCO2 POC ABG pO2 Sodium Potassium Chloride Carbon Dioxide BUN Creatinine Glucose POC Glucose 159 H 130 H 132 H Calcium Magnesium Direct Bilirubin AST ALT Alkaline Phosphatase Total Creatine Kinase CK-MB (CK-2) CK-MB (CK-2) Rel Index Troponin T C-Reactive Protein Total Protein Albumin Triglycerides Ur Specific [place] Urine WBC (Auto) Miscellaneous Test 04/28/17 04/28/17 04/28/17 11:15 17:38 23:23 WBC RBC Hgb Hct MCV MCH RDW Plt Count Lymph % (Auto) [place] % (Auto) Eos % (Auto) Baso % (Auto) Lymph # Baso # Seg Neutrophils % Lymphocytes % (Manual) Monocytes % (Manual) Nucleated RBC % Seg Neutrophils # Seg Neutrophils # Man Monocytes # (Manual) PT INR Activated Clotting Time POC ABG pH POC ABG pCO2 POC ABG pO2 Sodium Potassium Chloride Carbon Dioxide BUN Creatinine Glucose POC Glucose 162 H 133 H 138 H Calcium Magnesium Direct Bilirubin AST ALT Alkaline Phosphatase Total Creatine Kinase CK-MB (CK-2) CK-MB (CK-2) Rel Index Troponin T C-Reactive Protein Total Protein Albumin Triglycerides Ur Specific [place] Urine WBC (Auto) Miscellaneous Test 04/29/17 04/29/17 04/29/17 05:15 12:55 17:21 WBC RBC Hgb Hct MCV MCH RDW Plt Count Lymph % (Auto) [place] % (Auto) Eos % (Auto) Baso % (Auto) Lymph # Baso # Seg Neutrophils % Lymphocytes % (Manual) Monocytes % (Manual) Nucleated RBC % Seg Neutrophils # Seg Neutrophils # Man Monocytes # (Manual) PT INR Activated Clotting Time POC ABG pH POC ABG pCO2 POC ABG pO2 Sodium Potassium Chloride Carbon Dioxide BUN Creatinine Glucose POC Glucose 135 H 127 H 138 H Calcium Magnesium Direct Bilirubin AST ALT Alkaline Phosphatase Total Creatine Kinase CK-MB (CK-2) CK-MB (CK-2) Rel Index Troponin T C-Reactive Protein Total Protein Albumin Triglycerides Ur Specific [place] Urine WBC (Auto) Miscellaneous Test 04/29/17 04/30/17 04/30/17 23:52 04:55 12:22 WBC RBC Hgb Hct MCV MCH RDW Plt Count Lymph % (Auto) [place] % (Auto) Eos % (Auto) Baso % (Auto) Lymph # Baso # Seg Neutrophils % Lymphocytes % (Manual) Monocytes % (Manual) Nucleated RBC % Seg Neutrophils # Seg Neutrophils # Man Monocytes # (Manual) PT INR Activated Clotting Time POC ABG pH POC ABG pCO2 POC ABG pO2 Sodium Potassium Chloride Carbon Dioxide BUN Creatinine Glucose POC Glucose 142 H 146 H 132 H Calcium Magnesium Direct Bilirubin AST ALT Alkaline Phosphatase Total Creatine Kinase CK-MB (CK-2) CK-MB (CK-2) Rel Index Troponin T C-Reactive Protein Total Protein Albumin Triglycerides Ur Specific [place] Urine WBC (Auto) Miscellaneous Test 04/30/17 04/30/17 04/30/17 14:25 17:47 18:20 WBC RBC Hgb Hct MCV MCH RDW Plt Count Lymph % (Auto) [place] % (Auto) Eos % (Auto) Baso % (Auto) Lymph # Baso # Seg Neutrophils % Lymphocytes % (Manual) Monocytes % (Manual) Nucleated RBC % Seg Neutrophils # Seg Neutrophils # Man Monocytes # (Manual) PT INR Activated Clotting Time POC ABG pH 7.551 H POC ABG pCO2 32.7 L POC ABG pO2 Sodium Potassium Chloride Carbon Dioxide BUN 21 H Creatinine 0.2 L Glucose 141 H POC Glucose 139 H Calcium Magnesium Direct Bilirubin AST ALT Alkaline Phosphatase Total Creatine Kinase CK-MB (CK-2) CK-MB (CK-2) Rel Index Troponin T C-Reactive Protein Total Protein Albumin Triglycerides Ur Specific [place] Urine WBC (Auto) Miscellaneous Test 05/01/17 05/01/17 05/01/17 01:26 05:30 05:30 WBC RBC 3.49 L Hgb 10.3 L Hct 31.9 L MCV MCH RDW Plt Count Lymph % (Auto) [place] % (Auto) 8.1 H Eos % (Auto) Baso % (Auto) Lymph # Baso # Seg Neutrophils % 71.3 H Lymphocytes % (Manual) Monocytes % (Manual) Nucleated RBC % Seg Neutrophils # Seg Neutrophils # Man Monocytes # (Manual) PT INR Activated Clotting Time POC ABG pH POC ABG pCO2 POC ABG pO2 Sodium 136 L Potassium Chloride 97.6 L Carbon Dioxide BUN Creatinine 0.2 L Glucose 123 H POC Glucose 116 H Calcium Magnesium Direct Bilirubin AST 71 H ALT 125 H Alkaline Phosphatase 158 H Total Creatine Kinase CK-MB (CK-2) CK-MB (CK-2) Rel Index Troponin T C-Reactive Protein Total Protein Albumin 2.6 L Triglycerides Ur Specific [place] Urine WBC (Auto) Miscellaneous Test 05/01/17 05/01/17 05/02/17 11:59 17:23 00:08 WBC RBC Hgb Hct MCV MCH RDW Plt Count Lymph % (Auto) [place] % (Auto) Eos % (Auto) Baso % (Auto) Lymph # Baso # Seg Neutrophils % Lymphocytes % (Manual) Monocytes % (Manual) Nucleated RBC % Seg Neutrophils # Seg Neutrophils # Man Monocytes # (Manual) PT INR Activated Clotting Time POC ABG pH POC ABG pCO2 POC ABG pO2 Sodium Potassium Chloride Carbon Dioxide BUN Creatinine Glucose POC Glucose 118 H 144 H 122 H Calcium Magnesium Direct Bilirubin AST ALT Alkaline Phosphatase Total Creatine Kinase CK-MB (CK-2) CK-MB (CK-2) Rel Index Troponin T C-Reactive Protein Total Protein Albumin Triglycerides Ur Specific [place] Urine WBC (Auto) Miscellaneous Test 05/02/17 05/02/17 05/02/17 05:50 11:21 17:48 WBC RBC Hgb Hct MCV MCH RDW Plt Count Lymph % (Auto) [place] % (Auto) Eos % (Auto) Baso % (Auto) Lymph # Baso # Seg Neutrophils % Lymphocytes % (Manual) Monocytes % (Manual) Nucleated RBC % Seg Neutrophils # Seg Neutrophils # Man Monocytes # (Manual) PT INR Activated Clotting Time POC ABG pH POC ABG pCO2 POC ABG pO2 Sodium Potassium Chloride Carbon Dioxide BUN Creatinine Glucose POC Glucose 120 H 121 H 140 H Calcium Magnesium Direct Bilirubin AST ALT Alkaline Phosphatase Total Creatine Kinase CK-MB (CK-2) CK-MB (CK-2) Rel Index Troponin T C-Reactive Protein Total Protein Albumin Triglycerides Ur Specific [place] Urine WBC (Auto) Miscellaneous Test 05/02/17 05/03/17 05/03/17 23:12 05:35 11:52 WBC RBC Hgb Hct MCV MCH RDW Plt Count Lymph % (Auto) [place] % (Auto) Eos % (Auto) Baso % (Auto) Lymph # Baso # Seg Neutrophils % Lymphocytes % (Manual) Monocytes % (Manual) Nucleated RBC % Seg Neutrophils # Seg Neutrophils # Man Monocytes # (Manual) PT INR Activated Clotting Time POC ABG pH POC ABG pCO2 POC ABG pO2 Sodium Potassium Chloride Carbon Dioxide BUN Creatinine Glucose POC Glucose 128 H 113 H 126 H Calcium Magnesium Direct Bilirubin AST ALT Alkaline Phosphatase Total Creatine Kinase CK-MB (CK-2) CK-MB (CK-2) Rel Index Troponin T C-Reactive Protein Total Protein Albumin Triglycerides Ur Specific [place] Urine WBC (Auto) Miscellaneous Test 05/03/17 05/03/17 05/04/17 17:29 23:26 04:55 WBC RBC Hgb Hct MCV MCH RDW Plt Count Lymph % (Auto) [place] % (Auto) Eos % (Auto) Baso % (Auto) Lymph # Baso # Seg Neutrophils % Lymphocytes % (Manual) Monocytes % (Manual) Nucleated RBC % Seg Neutrophils # Seg Neutrophils # Man Monocytes # (Manual) PT INR Activated Clotting Time POC ABG pH POC ABG pCO2 POC ABG pO2 Sodium Potassium Chloride Carbon Dioxide BUN Creatinine Glucose POC Glucose 141 H 129 H 126 H Calcium Magnesium Direct Bilirubin AST ALT Alkaline Phosphatase Total Creatine Kinase CK-MB (CK-2) CK-MB (CK-2) Rel Index Troponin T C-Reactive Protein Total Protein Albumin Triglycerides Ur Specific [place] Urine WBC (Auto) Miscellaneous Test 05/04/17 05/04/17 05/05/17 12:09 17:46 00:06 WBC RBC Hgb Hct MCV MCH RDW Plt Count Lymph % (Auto) [place] % (Auto) Eos % (Auto) Baso % (Auto) Lymph # Baso # Seg Neutrophils % Lymphocytes % (Manual) Monocytes % (Manual) Nucleated RBC % Seg Neutrophils # Seg Neutrophils # Man Monocytes # (Manual) PT INR Activated Clotting Time POC ABG pH POC ABG pCO2 POC ABG pO2 Sodium Potassium Chloride Carbon Dioxide BUN Creatinine Glucose POC Glucose 125 H 125 H 110 H Calcium Magnesium Direct Bilirubin AST ALT Alkaline Phosphatase Total Creatine Kinase CK-MB (CK-2) CK-MB (CK-2) Rel Index Troponin T C-Reactive Protein Total Protein Albumin Triglycerides Ur Specific [place] Urine WBC (Auto) Miscellaneous Test 05/05/17 05/05/17 05/05/17 05:48 11:41 16:19 WBC RBC Hgb Hct MCV MCH RDW Plt Count Lymph % (Auto) [place] % (Auto) Eos % (Auto) Baso % (Auto) Lymph # Baso # Seg Neutrophils % Lymphocytes % (Manual) Monocytes % (Manual) Nucleated RBC % Seg Neutrophils # Seg Neutrophils # Man Monocytes # (Manual) PT INR Activated Clotting Time POC ABG pH POC ABG pCO2 POC ABG pO2 Sodium Potassium Chloride Carbon Dioxide BUN Creatinine Glucose POC Glucose 124 H 122 H 120 H Calcium Magnesium Direct Bilirubin AST ALT Alkaline Phosphatase Total Creatine Kinase CK-MB (CK-2) CK-MB (CK-2) Rel Index Troponin T C-Reactive Protein Total Protein Albumin Triglycerides Ur Specific [place] Urine WBC (Auto) Miscellaneous Test 05/06/17 05/06/17 05/06/17 00:16 05:47 11:42 WBC RBC Hgb Hct MCV MCH RDW Plt Count Lymph % (Auto) [place] % (Auto) Eos % (Auto) Baso % (Auto) Lymph # Baso # Seg Neutrophils % Lymphocytes % (Manual) Monocytes % (Manual) Nucleated RBC % Seg Neutrophils # Seg Neutrophils # Man Monocytes # (Manual) PT INR Activated Clotting Time POC ABG pH POC ABG pCO2 POC ABG pO2 Sodium Potassium Chloride Carbon Dioxide BUN Creatinine Glucose POC Glucose 110 H 142 H 120 H Calcium Magnesium Direct Bilirubin AST ALT Alkaline Phosphatase Total Creatine Kinase CK-MB (CK-2) CK-MB (CK-2) Rel Index Troponin T C-Reactive Protein Total Protein Albumin Triglycerides Ur Specific [place] Urine WBC (Auto) Miscellaneous Test 05/06/17 05/07/17 05/07/17 17:46 00:07 05:28 WBC RBC Hgb Hct MCV MCH RDW Plt Count Lymph % (Auto) [place] % (Auto) Eos % (Auto) Baso % (Auto) Lymph # Baso # Seg Neutrophils % Lymphocytes % (Manual) Monocytes % (Manual) Nucleated RBC % Seg Neutrophils # Seg Neutrophils # Man Monocytes # (Manual) PT INR Activated Clotting Time POC ABG pH POC ABG pCO2 POC ABG pO2 Sodium Potassium Chloride Carbon Dioxide BUN Creatinine Glucose POC Glucose 127 H 145 H 124 H Calcium Magnesium Direct Bilirubin AST ALT Alkaline Phosphatase Total Creatine Kinase CK-MB (CK-2) CK-MB (CK-2) Rel Index Troponin T C-Reactive Protein Total Protein Albumin Triglycerides Ur Specific [place] Urine WBC (Auto) Miscellaneous Test 05/07/17 05/07/17 05/08/17 11:17 17:14 00:03 WBC RBC Hgb Hct MCV MCH RDW Plt Count Lymph % (Auto) [place] % (Auto) Eos % (Auto) Baso % (Auto) Lymph # Baso # Seg Neutrophils % Lymphocytes % (Manual) Monocytes % (Manual) Nucleated RBC % Seg Neutrophils # Seg Neutrophils # Man Monocytes # (Manual) PT INR Activated Clotting Time POC ABG pH POC ABG pCO2 POC ABG pO2 Sodium Potassium Chloride Carbon Dioxide BUN Creatinine Glucose POC Glucose 144 H 125 H 122 H Calcium Magnesium Direct Bilirubin AST ALT Alkaline Phosphatase Total Creatine Kinase CK-MB (CK-2) CK-MB (CK-2) Rel Index Troponin T C-Reactive Protein Total Protein Albumin Triglycerides Ur Specific [place] Urine WBC (Auto) Miscellaneous Test 05/08/17 05/08/17 05/08/17 05:43 12:07 18:02 WBC RBC Hgb Hct MCV MCH RDW Plt Count Lymph % (Auto) [place] % (Auto) Eos % (Auto) Baso % (Auto) Lymph # Baso # Seg Neutrophils % Lymphocytes % (Manual) Monocytes % (Manual) Nucleated RBC % Seg Neutrophils # Seg Neutrophils # Man Monocytes # (Manual) PT INR Activated Clotting Time POC ABG pH POC ABG pCO2 POC ABG pO2 Sodium Potassium Chloride Carbon Dioxide BUN Creatinine Glucose POC Glucose 117 H 114 H 129 H Calcium Magnesium Direct Bilirubin AST ALT Alkaline Phosphatase Total Creatine Kinase CK-MB (CK-2) CK-MB (CK-2) Rel Index Troponin T C-Reactive Protein Total Protein Albumin Triglycerides Ur Specific [place] Urine WBC (Auto) Miscellaneous Test 05/08/17 05/09/17 05/09/17 23:53 04:19 05:14 WBC RBC Hgb Hct MCV MCH RDW Plt Count Lymph % (Auto) [place] % (Auto) Eos % (Auto) Baso % (Auto) Lymph # Baso # Seg Neutrophils % Lymphocytes % (Manual) Monocytes % (Manual) Nucleated RBC % Seg Neutrophils # Seg Neutrophils # Man Monocytes # (Manual) PT INR Activated Clotting Time POC ABG pH 7.524 H POC ABG pCO2 34.7 L POC ABG pO2 107 H Sodium Potassium Chloride Carbon Dioxide BUN Creatinine Glucose POC Glucose 125 H 118 H Calcium Magnesium Direct Bilirubin AST ALT Alkaline Phosphatase Total Creatine Kinase CK-MB (CK-2) CK-MB (CK-2) Rel Index Troponin T C-Reactive Protein Total Protein Albumin Triglycerides Ur Specific [place] Urine WBC (Auto) Miscellaneous Test 05/10/17 05/11/17 05/11/17 23:54 05:48 23:50 WBC RBC Hgb Hct MCV MCH RDW Plt Count Lymph % (Auto) [place] % (Auto) Eos % (Auto) Baso % (Auto) Lymph # Baso # Seg Neutrophils % Lymphocytes % (Manual) Monocytes % (Manual) Nucleated RBC % Seg Neutrophils # Seg Neutrophils # Man Monocytes # (Manual) PT INR Activated Clotting Time POC ABG pH POC ABG pCO2 POC ABG pO2 Sodium Potassium Chloride Carbon Dioxide BUN Creatinine Glucose POC Glucose 126 H 137 H 130 H Calcium Magnesium Direct Bilirubin AST ALT Alkaline Phosphatase Total Creatine Kinase CK-MB (CK-2) CK-MB (CK-2) Rel Index Troponin T C-Reactive Protein Total Protein Albumin Triglycerides Ur Specific [place] Urine WBC (Auto) Miscellaneous Test 05/12/17 05/12/17 05/12/17 05:48 11:33 18:00 WBC RBC Hgb Hct MCV MCH RDW Plt Count Lymph % (Auto) [place] % (Auto) Eos % (Auto) Baso % (Auto) Lymph # Baso # Seg Neutrophils % Lymphocytes % (Manual) Monocytes % (Manual) Nucleated RBC % Seg Neutrophils # Seg Neutrophils # Man Monocytes # (Manual) PT INR Activated Clotting Time POC ABG pH POC ABG pCO2 POC ABG pO2 Sodium Potassium Chloride Carbon Dioxide BUN Creatinine Glucose POC Glucose 126 H 116 H 131 H Calcium Magnesium Direct Bilirubin AST ALT Alkaline Phosphatase Total Creatine Kinase CK-MB (CK-2) CK-MB (CK-2) Rel Index Troponin T C-Reactive Protein Total Protein Albumin Triglycerides Ur Specific [place] Urine WBC (Auto) Miscellaneous Test 05/14/17 05/15/17 05/15/17 11:45 11:27 17:42 WBC RBC Hgb Hct MCV MCH RDW Plt Count Lymph % (Auto) [place] % (Auto) Eos % (Auto) Baso % (Auto) Lymph # Baso # Seg Neutrophils % Lymphocytes % (Manual) Monocytes % (Manual) Nucleated RBC % Seg Neutrophils # Seg Neutrophils # Man Monocytes # (Manual) PT INR Activated Clotting Time POC ABG pH POC ABG pCO2 POC ABG pO2 Sodium Potassium Chloride Carbon Dioxide BUN Creatinine Glucose POC Glucose 123 H 129 H 125 H Calcium Magnesium Direct Bilirubin AST ALT Alkaline Phosphatase Total Creatine Kinase CK-MB (CK-2) CK-MB (CK-2) Rel Index Troponin T C-Reactive Protein Total Protein Albumin Triglycerides Ur Specific [place] Urine WBC (Auto) Miscellaneous Test 05/16/17 05/16/17 05/17/17 00:29 06:50 03:45 WBC RBC Hgb 11.7 L Hct 34.8 L MCV MCH RDW 15.5 H Plt Count Lymph % (Auto) [place] % (Auto) 7.7 H Eos % (Auto) Baso % (Auto) Lymph # Baso # Seg Neutrophils % 73.7 H Lymphocytes % (Manual) Monocytes % (Manual) Nucleated RBC % Seg Neutrophils # Seg Neutrophils # Man Monocytes # (Manual) PT INR Activated Clotting Time POC ABG pH POC ABG pCO2 POC ABG pO2 Sodium Potassium Chloride Carbon Dioxide BUN Creatinine Glucose POC Glucose 141 H 138 H Calcium Magnesium Direct Bilirubin AST ALT Alkaline Phosphatase Total Creatine Kinase CK-MB (CK-2) CK-MB (CK-2) Rel Index Troponin T C-Reactive Protein Total Protein Albumin Triglycerides Ur Specific [place] Urine WBC (Auto) Miscellaneous Test 05/17/17 05/20/17 05/23/17 03:45 17:31 23:09 WBC RBC Hgb Hct MCV MCH RDW Plt Count Lymph % (Auto) [place] % (Auto) Eos % (Auto) Baso % (Auto) Lymph # Baso # Seg Neutrophils % Lymphocytes % (Manual) Monocytes % (Manual) Nucleated RBC % Seg Neutrophils # Seg Neutrophils # Man Monocytes # (Manual) PT INR Activated Clotting Time POC ABG pH POC ABG pCO2 POC ABG pO2 Sodium Potassium Chloride Carbon Dioxide BUN Creatinine 0.2 L Glucose 131 H POC Glucose 116 H 122 H Calcium Magnesium Direct Bilirubin AST ALT Alkaline Phosphatase Total Creatine Kinase CK-MB (CK-2) CK-MB (CK-2) Rel Index Troponin T C-Reactive Protein Total Protein Albumin Triglycerides Ur Specific [place] Urine WBC (Auto) Miscellaneous Test 05/24/17 05/26/17 05/27/17 05:37 05:23 01:16 WBC RBC Hgb Hct MCV MCH RDW Plt Count Lymph % (Auto) [place] % (Auto) Eos % (Auto) Baso % (Auto) Lymph # Baso # Seg Neutrophils % Lymphocytes % (Manual) Monocytes % (Manual) Nucleated RBC % Seg Neutrophils # Seg Neutrophils # Man Monocytes # (Manual) PT INR Activated Clotting Time POC ABG pH POC ABG pCO2 POC ABG pO2 Sodium Potassium Chloride Carbon Dioxide BUN Creatinine Glucose POC Glucose 139 H 108 H 126 H Calcium Magnesium Direct Bilirubin AST ALT Alkaline Phosphatase Total Creatine Kinase CK-MB (CK-2) CK-MB (CK-2) Rel Index Troponin T C-Reactive Protein Total Protein Albumin Triglycerides Ur Specific [place] Urine WBC (Auto) Miscellaneous Test 05/27/17 05/27/17 05/29/17 05:33 21:49 04:37 WBC RBC Hgb Hct MCV MCH RDW 15.5 H Plt Count Lymph % (Auto) [place] % (Auto) Eos % (Auto) Baso % (Auto) Lymph # Baso # Seg Neutrophils % Lymphocytes % (Manual) Monocytes % (Manual) Nucleated RBC % Seg Neutrophils # Seg Neutrophils # Man Monocytes # (Manual) PT INR Activated Clotting Time POC ABG pH POC ABG pCO2 POC ABG pO2 Sodium Potassium Chloride Carbon Dioxide BUN Creatinine Glucose POC Glucose 129 H 110 H Calcium Magnesium Direct Bilirubin AST ALT Alkaline Phosphatase Total Creatine Kinase CK-MB (CK-2) CK-MB (CK-2) Rel Index Troponin T C-Reactive Protein Total Protein Albumin Triglycerides Ur Specific [place] Urine WBC (Auto) Miscellaneous Test 05/29/17 04:37 WBC RBC Hgb Hct MCV MCH RDW Plt Count Lymph % (Auto) [place] % (Auto) Eos % (Auto) Baso % (Auto) Lymph # Baso # Seg Neutrophils % Lymphocytes % (Manual) Monocytes % (Manual) Nucleated RBC % Seg Neutrophils # Seg Neutrophils # Man Monocytes # (Manual) PT INR Activated Clotting Time POC ABG pH POC ABG pCO2 POC ABG pO2 Sodium Potassium Chloride 97.6 L Carbon Dioxide BUN Creatinine 0.2 L Glucose 121 H POC Glucose Calcium Magnesium Direct Bilirubin AST ALT Alkaline Phosphatase Total Creatine Kinase CK-MB (CK-2) CK-MB (CK-2) Rel Index Troponin T C-Reactive Protein Total Protein Albumin Triglycerides Ur Specific [place] Urine WBC (Auto) Miscellaneous Test
--- NOTE | 2017-05-31 13:14 | Progress Note ---
Assessment and Plan Assessment and plan: 46 YO Male with No PMH presents to ED for evaluation. Pt is unresponsive and unable to provide history. Pt history taken from ED staff and EMS. Pt was at work today and suddenly passed out around 1050 hrs-which was witnessed by patients coworkers. EMS notified, and upon arrival the patient was found to have V Fib. Pt treated IAW ACLS protocol. The patient was given 3 defibrillations, 2 rounds of epinephrine, Narcan, and a half amp of sodium bicarbonate. Pt found to be in respiratory distress and was intubated and placed on vent support. Cardiology team notified, and patient was taken urgently to laboratory supervisor, and admitted to ICU. He went on to have emergency cath for STEMI, 100% occlusion of LAD was found and had successful angioplasty and stents placed. 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 Patient does have a trach and PEG per family request. He was found to have right upper extremity DVT for which PICC line which was the offending agents was removed and the patient was put on anticoagulant. He completed a course of antibiotics for pneumonia due to MRSA. At this time the patient's is awaiting insurance, application was done earlier this year. After which he has medical insurance the goal will be to transfer him to an LTAC or SNIF facility. This was discussed with his family and he stated that the cannot care for him at home Diagnoses anoxic brain injury/anoxic encephalopathy/Persistent Vegetative State Acute Respiratory failure requiring MV >96 hours Anterior STEMI sp cardiac arrest with V fib Aspiration PNA due to MRSA/Gram positive Sepsis cardiogenic Shock Sepsis/Right lower lobe aspiration pneumonia, most likely due to gram-positive bacteria Hypokalemia Hypernatremia/dehydration/free water deficit RUE DVT, --Severe Protein calorie malnutrition: V. fib arrest status post, Acute Cystitis treated with abx Hypertension History Interval history: Patient is nonresponsive, lacks most reflexes, had fever, no vomiting, no agitation sister states that RUE is swollen Hospitalist Physical - Physical exam Narrative exam: General.: Comatose breathes over the vent HEENT: Moist mucous membranes, no LAD, Neck: supple Cardiac: S1-S2 heard Lungs: clear to auscultation bilaterally Abdomen: soft , nontender, nondistended, bowel sounds positive Extremities: RUE edema Skin: no rash or lesions Neurologic: Patient is in deep coma, has gag reflexs and corneal reflex , decerebrate posturing, pupils are fixed and non reactive, lacks all other reflexes, opens eyes spontaneously, no purposeful movement, does not obey commands - Constitutional Vitals: Temp Pulse Resp BP Pulse Ox 98.9 F 70 23 104/58 99 05/31/17 04:00 05/31/17 12:00 05/31/17 09:00 05/31/17 12:00 05/31/17 12:00 General appearance: Present: other (tracheostomy on vent) Results - Labs CBC & Chem 7: 05/29/17 04:37 05/29/17 04:37 Labs: Laboratory Last Values WBC 8.0 K/mm3 (4.5-11.0) 05/29/17 04:37 RBC 4.52 M/mm3 (3.65-5.03) 05/29/17 04:37 Hgb 13.6 gm/dl (11.8-15.2) 05/29/17 04:37 Hct 40.6 % (35.5-45.6) 05/29/17 04:37 MCV 90 fl (84-94) 05/29/17 04:37 MCH 30 pg (28-32) 05/29/17 04:37 MCHC 33 % (32-34) 05/29/17 04:37 RDW 15.5 % (13.2-15.2) H 05/29/17 04:37 Plt Count 222 K/mm3 (140-440) 05/29/17 04:37 Lymph % (Auto) 15.6 % (13.4-35.0) 05/17/17 03:45 [place] % (Auto) 7.7 % (0.0-7.3) H 05/17/17 03:45 Eos % (Auto) 2.7 % (0.0-4.3) 05/17/17 03:45 Baso % (Auto) 0.3 % (0.0-1.8) 05/17/17 03:45 Lymph # 1.5 K/mm3 (1.2-5.4) 05/17/17 03:45 [place] # 0.7 K/mm3 (0.0-0.8) 05/17/17 03:45 Eos # 0.3 K/mm3 (0.0-0.4) 05/17/17 03:45 Baso # 0.0 K/mm3 (0.0-0.1) 05/17/17 03:45 Add Manual Diff Complete 03/30/17 03:50 Total Counted 100 03/30/17 03:50 Seg Neutrophils % 73.7 % (40.0-70.0) H 05/17/17 03:45 Seg Neuts % (Manual) 65.0 % (40.0-70.0) 03/30/17 03:50 Band Neutrophils % 17.0 % 03/30/17 03:50 Lymphocytes % (Manual) 7.0 % (13.4-35.0) L 03/30/17 03:50 Reactive Lymphs % (Man) 0 % 03/30/17 03:50 Monocytes % (Manual) 7.0 % (0.0-7.3) 03/30/17 03:50 Eosinophils % (Manual) 0 % (0.0-4.3) 03/30/17 03:50 Basophils % (Manual) 0 % (0.0-1.8) 03/30/17 03:50 Metamyelocytes % 4.0 % 03/30/17 03:50 Myelocytes % 0 % 03/30/17 03:50 Promyelocytes % 0 % 03/30/17 03:50 Blast Cells % 0 % 03/30/17 03:50 Nucleated RBC % Not Reportable 03/30/17 03:50 Seg Neutrophils # 6.9 K/mm3 (1.8-7.7) 05/17/17 03:45 Seg Neutrophils # Man 12.7 K/mm3 (1.8-7.7) H 03/30/17 03:50 Band Neutrophils # 3.3 K/mm3 03/30/17 03:50 Lymphocytes # (Manual) 1.4 K/mm3 (1.2-5.4) 03/30/17 03:50 Abs React Lymphs (Man) 0.0 K/mm3 03/30/17 03:50 Monocytes # (Manual) 1.4 K/mm3 (0.0-0.8) H 03/30/17 03:50 Eosinophils # (Manual) 0.0 K/mm3 (0.0-0.4) 03/30/17 03:50 Basophils # (Manual) 0.0 K/mm3 (0.0-0.1) 03/30/17 03:50 Metamyelocytes # 0.8 K/mm3 03/30/17 03:50 Myelocytes # 0.0 K/mm3 03/30/17 03:50 Promyelocytes # 0.0 K/mm3 03/30/17 03:50 Blast Cells # 0.0 K/mm3 03/30/17 03:50 WBC Morphology Not Reportable 03/30/17 03:50 Hypersegmented Neuts Not Reportable 03/30/17 03:50 Hyposegmented Neuts Not Reportable 03/30/17 03:50 Hypogranular Neuts Not Reportable 03/30/17 03:50 Smudge Cells Not Reportable 03/30/17 03:50 Toxic Granulation Not Reportable 03/30/17 03:50 Toxic Vacuolation Not Reportable 03/30/17 03:50 Dohle Bodies Not Reportable 03/30/17 03:50 Pel[place]-Huet Anomaly Not Reportable 03/30/17 03:50 Sherry Rods Not Reportable 03/30/17 03:50 Platelet Estimate Appears normal 03/30/17 03:50 Clumped Platelets Not Reportable 03/30/17 03:50 Plt Clumps, EDTA Not Reportable 03/30/17 03:50 Large Platelets Not Reportable 03/30/17 03:50 Giant Platelets Not Reportable 03/30/17 03:50 Platelet Satelliting Not Reportable 03/30/17 03:50 Plt Morphology Comment Not Reportable 03/30/17 03:50 RBC Morphology Not Reportable 03/30/17 03:50 Dimorphic RBCs Not Reportable 03/30/17 03:50 Polychromasia Not Reportable 03/30/17 03:50 Hypochromasia Not Reportable 03/30/17 03:50 Poikilocytosis Not Reportable 03/30/17 03:50 Anisocytosis Few 03/30/17 03:50 Microcytosis Not Reportable 03/30/17 03:50 Macrocytosis Not Reportable 03/30/17 03:50 Spherocytes Not Reportable 03/30/17 03:50 Pappenheimer Bodies Not Reportable 03/30/17 03:50 Sickle Cells Not Reportable 03/30/17 03:50 Target Cells Not Reportable 03/30/17 03:50 Tear Drop Cells Not Reportable 03/30/17 03:50 Ovalocytes Not Reportable 03/30/17 03:50 Helmet Cells Not Reportable 03/30/17 03:50 [place] Bodies Not Reportable 03/30/17 03:50 [place] Rings Not Reportable 03/30/17 03:50 Nusrat Cells Not Reportable 03/30/17 03:50 Bite Cells Not Reportable 03/30/17 03:50 Crenated Cell Not Reportable 03/30/17 03:50 Elliptocytes Not Reportable 03/30/17 03:50 Acanthocytes (Spur) Not Reportable 03/30/17 03:50 Rouleaux Not Reportable 03/30/17 03:50 Hemoglobin C Crystals Not Reportable 03/30/17 03:50 Schistocytes Not Reportable 03/30/17 03:50 Malaria parasites Not Reportable 03/30/17 03:50 [place] Bodies Not Reportable 03/30/17 03:50 Hem Pathologist Commnt No 03/30/17 03:50 PT 14.9 Sec. (12.2-14.9) 04/10/17 04:16 INR 1.11 (0.87-1.13) 04/10/17 04:16 APTT 27.8 Sec. (24.2-36.6) 04/10/17 04:16 Activated Clotting Time 92 (74-137) 03/29/17 17:47 POC ABG pH 7.524 (7.35-7.45) H 05/09/17 04:19 POC ABG pCO2 34.7 (35-45) L 05/09/17 04:19 POC ABG pO2 107 (80-105) H 05/09/17 04:19 POC ABG HCO3 28.6 05/09/17 04:19 POC ABG Total CO2 30 05/09/17 04:19 POC ABG O2 Sat 99 05/09/17 04:19 POC ABG Base Excess 6 05/09/17 04:19 FiO2 25 % 05/09/17 04:19 Sodium 138 mmol/L (137-145) 05/29/17 04:37 Potassium 4.2 mmol/L (3.6-5.0) 05/29/17 04:37 Chloride 97.6 mmol/L (98-107) L 05/29/17 04:37 Carbon Dioxide 23 mmol/L (22-30) 05/29/17 04:37 Anion Gap 22 mmol/L 05/29/17 04:37 BUN 14 mg/dL (9-20) 05/29/17 04:37 Creatinine 0.2 mg/dL (0.8-1.5) L 05/29/17 04:37 Estimated GFR > 60 ml/min 05/29/17 04:37 BUN/Creatinine Ratio 70 % 05/29/17 04:37 Glucose 121 mg/dL (75-100) H 05/29/17 04:37 POC Glucose 95 (70-105) 05/28/17 05:51 Calcium 9.5 mg/dL (8.4-10.2) 05/29/17 04:37 Phosphorus 3.50 mg/dL (2.5-4.5) 04/13/17 04:45 Magnesium 1.80 mg/dL (1.7-2.3) 05/01/17 05:30 Total Bilirubin 0.60 mg/dL (0.1-1.2) 05/01/17 05:30 Direct Bilirubin < 0.2 mg/dL (0-0.2) 04/27/17 05:40 Indirect Bilirubin 0.3 mg/dL 04/25/17 04:51 AST 71 units/L (5-40) H 05/01/17 05:30 ALT 125 units/L (7-56) H 05/01/17 05:30 Alkaline Phosphatase 158 units/L (35-129) H 05/01/17 05:30 Total Creatine Kinase 1404 units/L (55-170) H 04/12/17 21:36 CK-MB (CK-2) 8.0 ng/mL (0.0-4.0) H 04/12/17 21:36 CK-MB (CK-2) Rel Index 0.5 (0-4) 04/12/17 21:36 Troponin T 0.767 ng/mL (0.00-0.029) H* 04/12/17 21:36 C-Reactive Protein 21.80 mg/dL (0.00-1.30) H 03/30/17 16:04 Total Protein 6.7 g/dL (6.3-8.2) 05/01/17 05:30 Albumin 2.6 g/dL (3.9-5) L 05/01/17 05:30 Albumin/Globulin Ratio 0.6 % 05/01/17 05:30 Triglycerides 151 mg/dL (2-149) H 04/01/17 04:29 Cholesterol 164 mg/dL (50-199) 03/29/17 19:52 LDL Cholesterol Direct 81 mg/dL (50-130) 03/29/17 19:52 HDL Cholesterol 44 mg/dL (40-59) 03/29/17 19:52 Cholesterol/HDL Ratio 3.72 % 03/29/17 19:52 Urine Color [place] (Yellow) 04/21/17 22:00 Urine Turbidity Clear (Clear) 04/21/17 22:00 Urine pH 5.0 (5.0-7.0) 04/21/17 22:00 Ur Specific [place] 1.029 (1.003-1.030) 04/21/17 22:00 Urine Protein 30 mg/dl mg/dL (Negative) 04/21/17 22:00 Urine Glucose (UA) Neg mg/dL (Negative) 04/21/17 22:00 Urine Ketones Neg mg/dL (Negative) 04/21/17 22:00 Urine Blood Mod (Negative) 04/21/17 22:00 Urine Nitrite Neg (Negative) 04/21/17 22:00 Urine Bilirubin Neg (Negative) 04/21/17 22:00 Urine Urobilinogen 4.0 mg/dL (<2.0) 04/21/17 22:00 Ur Leukocyte Esterase Neg (Negative) 04/21/17 22:00 Urine WBC (Auto) 10.0 /HPF (0.0-6.0) H 04/21/17 22:00 Urine RBC (Auto) 44.0 /HPF (0.0-6.0) 04/21/17 22:00 U Epithel Cells (Auto) < 1.0 /HPF (0-13.0) 04/21/17 22:00 Amorphous Crystals 1+ 03/30/17 09:45 Urine Mucus 3+ /HPF 04/21/17 22:00 Urine Opiates Screen Presumptive negative 03/30/17 09:45 Urine Methadone Screen Presumptive negative 03/30/17 09:45 Ur Barbiturates Screen Presumptive negative 03/30/17 09:45 Ur Phencyclidine Scrn Presumptive negative 03/30/17 09:45 Ur Amphetamines Screen Presumptive positive 03/30/17 09:45 U Benzodiazepines Scrn Presumptive positive 03/30/17 09:45 Urine Cocaine Screen Presumptive negative 03/30/17 09:45 U Marijuana (THC) Screen Presumptive negative 03/30/17 09:45 Drugs of Abuse Note Disclamer 03/30/17 09:45 Miscellaneous Test Flexitest 1 H 04/25/17 07:07 Blood Type O POSITIVE 03/29/17 11:35 Antibody Screen Negative 03/29/17 11:35
[2017-06-01] MEDS: ELIQUIS PO SCH ×2 (09:01→21:57)
[2017-06-01] MEDS: CORDARONE PO SCH ×2 (09:01→22:02)
[2017-06-01] MEDS: PLAVIX PO SCH (09:01)
[2017-06-01] MEDS: PROTONIX FEEDTUBE SCH (09:01)
[2017-06-01] MEDS: ASPIRIN PO SCH (09:01)
[2017-06-01] MEDS: LOPRESSOR PO SCH (09:02)
[2017-06-01] MEDS: ZESTRIL PO SCH (09:03)
--- NOTE | 2017-06-01 10:14 | Progress Note ---
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 No new recommendations for today. Patient remains full code and will continue PSV as tolerated with hopes of weaning to T-piece. He continues to have Apnea and fails PSV trials. Family has been made aware of this. 1. PSV as tolerated with a goal to get to T-piece 2. Once tolerates T-piece for 24 hours, can consider transfer to floor, this is highly unlikely. 3. reviewed neurology note and agree with assessment 4. Continue all other cardiac meds 5. Overall prognosis still remains poor given amount of downtime during arrest. 6. Family meeting held, they feel the patient will overcome this current state as they have had other family members do the same. Very in depth conversation about the prognosis and current clinical state. I've made my best attempt to help them understand. Neuro agrees. Will continue supportive measures and attempt to wean. CCT 31 minutes. Subjective Date of service: 06/01/17 Principal diagnosis: coma,ARV,s/p arrest Interval history: No acute events overnight. Mental state is unchanged. No family currently at bedside. Continues to have apnic spells and fails PSV. Objective Vital Signs - 12hr 05/31/17 05/31/17 05/31/17 23:00 23:20 23:36 Temperature 99.4 F Pulse Rate 81 83 Pulse Rate [ From Monitor] Respiratory 22 Rate Blood Pressure 115/68 115/68 O2 Sat by Pulse 95 Oximetry O2 Sat by Pulse Oximetry [ Assessment] 05/31/17 06/01/17 06/01/17 23:55 00:00 01:00 Temperature Pulse Rate 80 79 79 Pulse Rate [ 87 From Monitor] Respiratory 20 21 14 Rate Blood Pressure 120/80 120/74 121/75 O2 Sat by Pulse 98 91 92 Oximetry O2 Sat by Pulse 98 Oximetry [ Assessment] 06/01/17 06/01/17 06/01/17 02:00 03:00 03:13 Temperature Pulse Rate 81 82 79 Pulse Rate [ From Monitor] Respiratory 20 16 Rate Blood Pressure 118/71 119/74 119/74 O2 Sat by Pulse 93 94 97 Oximetry O2 Sat by Pulse Oximetry [ Assessment] 06/01/17 06/01/17 06/01/17 04:00 05:00 06:00 Temperature 98.8 F Pulse Rate 78 73 66 Pulse Rate [ 87 From Monitor] Respiratory 21 19 15 Rate Blood Pressure 117/70 115/72 121/70 O2 Sat by Pulse 92 93 92 Oximetry O2 Sat by Pulse Oximetry [ Assessment] 06/01/17 06/01/17 06/01/17 07:00 07:20 07:25 Temperature Pulse Rate 61 85 Pulse Rate [ From Monitor] Respiratory 15 Rate Blood Pressure 107/57 O2 Sat by Pulse 94 96 Oximetry O2 Sat by Pulse 96 Oximetry [ Assessment] 06/01/17 06/01/17 06/01/17 08:00 09:00 09:02 Temperature 98.7 F Pulse Rate 65 58 L 63 Pulse Rate [ 88 From Monitor] Respiratory 15 12 Rate Blood Pressure 105/68 101/60 97/61 O2 Sat by Pulse 91 94 Oximetry O2 Sat by Pulse Oximetry [ Assessment] 06/01/17 09:03 Temperature Pulse Rate 59 L Pulse Rate [ From Monitor] Respiratory Rate Blood Pressure 97/61 O2 Sat by Pulse Oximetry O2 Sat by Pulse Oximetry [ Assessment] Constitutional: no acute distress, comatose Eyes: non-icteric ENT: oropharynx moist Neck: supple, other (tracheotomy ) Effort: normal Ascultation: Bilateral: clear, diminished breath sounds, other (coarse BS bilaterally) Percussion: Bilateral: not dull Cardiovascular: regular rate and rhythm Gastrointestinal: normoactive bowel sounds, soft, non-tender, non-distended Integumentary: normal Extremities: no cyanosis, no edema, pink and warm Neurologic: other (nonresponsive with flaccid extremities) Psychiatric: other (eyes open spontaneously but does not follow any voice commands, otherwise nonresponsive except for pain) CBC and BMP: 05/29/17 04:37 05/29/17 04:37 ABG, PT/INR, D-dimer: ABG POC ABG pH 7.524 (7.35-7.45) H 05/09/17 04:19 POC ABG pCO2 34.7 (35-45) L 05/09/17 04:19 POC ABG pO2 107 (80-105) H 05/09/17 04:19 POC ABG HCO3 28.6 05/09/17 04:19 POC ABG Total CO2 30 05/09/17 04:19 POC ABG O2 Sat 99 05/09/17 04:19 PT/INR, D-dimer PT 14.9 Sec. (12.2-14.9) 04/10/17 04:16 INR 1.11 (0.87-1.13) 04/10/17 04:16 Abnormal lab findings: Abnormal Labs 03/29/17 03/29/17 03/29/17 11:35 11:35 11:40 WBC RBC Hgb Hct MCV 98 H MCH 33 H RDW Plt Count Lymph % (Auto) [place] % (Auto) Eos % (Auto) Baso % (Auto) Lymph # Baso # Seg Neutrophils % Lymphocytes % (Manual) Monocytes % (Manual) 9.0 H Nucleated RBC % 1.0 H Seg Neutrophils # Seg Neutrophils # Man Monocytes # (Manual) 0.9 H PT 15.8 H INR 1.20 H Activated Clotting Time POC ABG pH POC ABG pCO2 POC ABG pO2 Sodium Potassium 2.7 L* Chloride 95.3 L Carbon Dioxide 17 L BUN Creatinine Glucose 435 H POC Glucose Calcium Magnesium Direct Bilirubin AST ALT Alkaline Phosphatase Total Creatine Kinase CK-MB (CK-2) CK-MB (CK-2) Rel Index Troponin T C-Reactive Protein Total Protein 6.1 L Albumin 3.5 L Triglycerides Ur Specific [place] Urine WBC (Auto) Miscellaneous Test 03/29/17 03/29/17 03/29/17 12:34 13:10 13:25 WBC RBC Hgb Hct MCV MCH RDW Plt Count Lymph % (Auto) [place] % (Auto) Eos % (Auto) Baso % (Auto) Lymph # Baso # Seg Neutrophils % Lymphocytes % (Manual) Monocytes % (Manual) Nucleated RBC % Seg Neutrophils # Seg Neutrophils # Man Monocytes # (Manual) PT INR Activated Clotting Time 142 H 169 H 175 H POC ABG pH POC ABG pCO2 POC ABG pO2 Sodium Potassium Chloride Carbon Dioxide BUN Creatinine Glucose POC Glucose Calcium Magnesium Direct Bilirubin AST ALT Alkaline Phosphatase Total Creatine Kinase CK-MB (CK-2) CK-MB (CK-2) Rel Index Troponin T C-Reactive Protein Total Protein Albumin Triglycerides Ur Specific [place] Urine WBC (Auto) Miscellaneous Test 03/29/17 03/29/17 03/29/17 14:50 15:18 19:52 WBC RBC Hgb Hct MCV MCH RDW Plt Count Lymph % (Auto) [place] % (Auto) Eos % (Auto) Baso % (Auto) Lymph # Baso # Seg Neutrophils % Lymphocytes % (Manual) Monocytes % (Manual) Nucleated RBC % Seg Neutrophils # Seg Neutrophils # Man Monocytes # (Manual) PT INR Activated Clotting Time 175 H POC ABG pH 7.293 L POC ABG pCO2 POC ABG pO2 602 H Sodium Potassium Chloride Carbon Dioxide BUN Creatinine Glucose POC Glucose Calcium Magnesium Direct Bilirubin AST ALT Alkaline Phosphatase Total Creatine Kinase 7263 H CK-MB (CK-2) > 300.0 H CK-MB (CK-2) Rel Index 4.1 H Troponin T 8.080 H* D C-Reactive Protein Total Protein Albumin Triglycerides 195 H Ur Specific [place] Urine WBC (Auto) Miscellaneous Test 03/30/17 03/30/17 03/30/17 03:50 03:50 06:19 WBC 19.5 H RBC Hgb Hct MCV MCH RDW Plt Count Lymph % (Auto) [place] % (Auto) Eos % (Auto) Baso % (Auto) Lymph # Baso # Seg Neutrophils % Lymphocytes % (Manual) 7.0 L Monocytes % (Manual) Nucleated RBC % Seg Neutrophils # Seg Neutrophils # Man 12.7 H Monocytes # (Manual) 1.4 H PT INR Activated Clotting Time POC ABG pH POC ABG pCO2 28.2 L POC ABG pO2 108 H Sodium Potassium Chloride 108.9 H Carbon Dioxide 15 L BUN 25 H Creatinine Glucose 158 H POC Glucose Calcium 8.1 L Magnesium Direct Bilirubin AST ALT Alkaline Phosphatase Total Creatine Kinase 7963 H CK-MB (CK-2) > 300.0 H CK-MB (CK-2) Rel Index Troponin T 6.850 H* C-Reactive Protein Total Protein Albumin Triglycerides Ur Specific [place] Urine WBC (Auto) Miscellaneous Test 03/30/17 03/30/17 03/31/17 09:45 16:04 02:19 WBC RBC Hgb Hct MCV MCH RDW Plt Count Lymph % (Auto) [place] % (Auto) Eos % (Auto) Baso % (Auto) Lymph # Baso # Seg Neutrophils % Lymphocytes % (Manual) Monocytes % (Manual) Nucleated RBC % Seg Neutrophils # Seg Neutrophils # Man Monocytes # (Manual) PT INR Activated Clotting Time POC ABG pH POC ABG pCO2 POC ABG pO2 Sodium Potassium Chloride Carbon Dioxide BUN Creatinine Glucose POC Glucose 137 H Calcium Magnesium Direct Bilirubin AST ALT Alkaline Phosphatase Total Creatine Kinase CK-MB (CK-2) CK-MB (CK-2) Rel Index Troponin T C-Reactive Protein 21.80 H Total Protein Albumin Triglycerides Ur Specific [place] 1.031 H Urine WBC (Auto) Miscellaneous Test 03/31/17 03/31/17 03/31/17 03:57 06:54 09:22 WBC RBC Hgb Hct MCV MCH RDW Plt Count Lymph % (Auto) [place] % (Auto) Eos % (Auto) Baso % (Auto) Lymph # Baso # Seg Neutrophils % Lymphocytes % (Manual) Monocytes % (Manual) Nucleated RBC % Seg Neutrophils # Seg Neutrophils # Man Monocytes # (Manual) PT INR Activated Clotting Time POC ABG pH 7.475 H POC ABG pCO2 25.4 L POC ABG pO2 62 L Sodium Potassium Chloride Carbon Dioxide 19 L BUN 22 H Creatinine 0.6 L Glucose 148 H POC Glucose 143 H Calcium 8.3 L Magnesium Direct Bilirubin AST ALT Alkaline Phosphatase Total Creatine Kinase CK-MB (CK-2) CK-MB (CK-2) Rel Index Troponin T C-Reactive Protein Total Protein Albumin Triglycerides Ur Specific [place] Urine WBC (Auto) Miscellaneous Test 03/31/17 03/31/17 03/31/17 11:40 17:47 23:38 WBC RBC Hgb Hct MCV MCH RDW Plt Count Lymph % (Auto) [place] % (Auto) Eos % (Auto) Baso % (Auto) Lymph # Baso # Seg Neutrophils % Lymphocytes % (Manual) Monocytes % (Manual) Nucleated RBC % Seg Neutrophils # Seg Neutrophils # Man Monocytes # (Manual) PT INR Activated Clotting Time POC ABG pH POC ABG pCO2 POC ABG pO2 Sodium Potassium Chloride Carbon Dioxide BUN Creatinine Glucose POC Glucose 127 H 137 H 148 H Calcium Magnesium Direct Bilirubin AST ALT Alkaline Phosphatase Total Creatine Kinase CK-MB (CK-2) CK-MB (CK-2) Rel Index Troponin T C-Reactive Protein Total Protein Albumin Triglycerides Ur Specific [place] Urine WBC (Auto) Miscellaneous Test 04/01/17 04/01/17 04/01/17 04:29 05:01 11:54 WBC RBC Hgb Hct MCV MCH RDW Plt Count Lymph % (Auto) [place] % (Auto) Eos % (Auto) Baso % (Auto) Lymph # Baso # Seg Neutrophils % Lymphocytes % (Manual) Monocytes % (Manual) Nucleated RBC % Seg Neutrophils # Seg Neutrophils # Man Monocytes # (Manual) PT INR Activated Clotting Time POC ABG pH 7.513 H POC ABG pCO2 22.1 L POC ABG pO2 64 L Sodium Potassium Chloride Carbon Dioxide BUN Creatinine Glucose POC Glucose 121 H Calcium Magnesium Direct Bilirubin AST ALT Alkaline Phosphatase Total Creatine Kinase CK-MB (CK-2) CK-MB (CK-2) Rel Index Troponin T C-Reactive Protein Total Protein Albumin Triglycerides 151 H Ur Specific [place] Urine WBC (Auto) Miscellaneous Test 04/01/17 04/02/17 04/02/17 18:17 00:11 04:52 WBC RBC Hgb Hct MCV MCH RDW Plt Count Lymph % (Auto) [place] % (Auto) Eos % (Auto) Baso % (Auto) Lymph # Baso # Seg Neutrophils % Lymphocytes % (Manual) Monocytes % (Manual) Nucleated RBC % Seg Neutrophils # Seg Neutrophils # Man Monocytes # (Manual) PT INR Activated Clotting Time POC ABG pH 7.524 H POC ABG pCO2 25.5 L POC ABG pO2 66 L Sodium Potassium Chloride Carbon Dioxide BUN Creatinine Glucose POC Glucose 117 H 122 H Calcium Magnesium Direct Bilirubin AST ALT Alkaline Phosphatase Total Creatine Kinase CK-MB (CK-2) CK-MB (CK-2) Rel Index Troponin T C-Reactive Protein Total Protein Albumin Triglycerides Ur Specific [place] Urine WBC (Auto) Miscellaneous Test 04/02/17 04/02/17 04/02/17 05:18 10:41 12:19 WBC RBC Hgb Hct MCV MCH RDW Plt Count Lymph % (Auto) [place] % (Auto) Eos % (Auto) Baso % (Auto) Lymph # Baso # Seg Neutrophils % Lymphocytes % (Manual) Monocytes % (Manual) Nucleated RBC % Seg Neutrophils # Seg Neutrophils # Man Monocytes # (Manual) PT INR Activated Clotting Time POC ABG pH 7.534 H POC ABG pCO2 27.4 L POC ABG pO2 Sodium Potassium Chloride Carbon Dioxide BUN Creatinine Glucose POC Glucose 132 H 129 H Calcium Magnesium Direct Bilirubin AST ALT Alkaline Phosphatase Total Creatine Kinase CK-MB (CK-2) CK-MB (CK-2) Rel Index Troponin T C-Reactive Protein Total Protein Albumin Triglycerides Ur Specific [place] Urine WBC (Auto) Miscellaneous Test 04/02/17 04/03/17 04/03/17 18:05 00:08 05:09 WBC RBC Hgb Hct MCV MCH RDW Plt Count Lymph % (Auto) [place] % (Auto) Eos % (Auto) Baso % (Auto) Lymph # Baso # Seg Neutrophils % Lymphocytes % (Manual) Monocytes % (Manual) Nucleated RBC % Seg Neutrophils # Seg Neutrophils # Man Monocytes # (Manual) PT INR Activated Clotting Time POC ABG pH 7.455 H POC ABG pCO2 33.2 L POC ABG pO2 120 H Sodium Potassium Chloride Carbon Dioxide BUN Creatinine Glucose POC Glucose 136 H 128 H Calcium Magnesium Direct Bilirubin AST ALT Alkaline Phosphatase Total Creatine Kinase CK-MB (CK-2) CK-MB (CK-2) Rel Index Troponin T C-Reactive Protein Total Protein Albumin Triglycerides Ur Specific [place] Urine WBC (Auto) Miscellaneous Test 04/03/17 04/03/17 04/03/17 06:32 11:54 12:16 WBC 11.9 H RBC Hgb Hct MCV MCH RDW Plt Count 125 L Lymph % (Auto) 4.8 L [place] % (Auto) Eos % (Auto) Baso % (Auto) Lymph # 0.6 L Baso # Seg Neutrophils % 86.7 H Lymphocytes % (Manual) Monocytes % (Manual) Nucleated RBC % Seg Neutrophils # 10.3 H Seg Neutrophils # Man Monocytes # (Manual) PT INR Activated Clotting Time POC ABG pH POC ABG pCO2 POC ABG pO2 Sodium Potassium Chloride Carbon Dioxide BUN Creatinine Glucose POC Glucose 138 H 143 H Calcium Magnesium Direct Bilirubin AST ALT Alkaline Phosphatase Total Creatine Kinase CK-MB (CK-2) CK-MB (CK-2) Rel Index Troponin T C-Reactive Protein Total Protein Albumin Triglycerides Ur Specific [place] Urine WBC (Auto) Miscellaneous Test 04/03/17 04/03/17 04/04/17 17:33 23:59 04:34 WBC RBC Hgb Hct MCV MCH RDW Plt Count Lymph % (Auto) [place] % (Auto) Eos % (Auto) Baso % (Auto) Lymph # Baso # Seg Neutrophils % Lymphocytes % (Manual) Monocytes % (Manual) Nucleated RBC % Seg Neutrophils # Seg Neutrophils # Man Monocytes # (Manual) PT INR Activated Clotting Time POC ABG pH 7.457 H POC ABG pCO2 29.8 L POC ABG pO2 76 L Sodium Potassium Chloride Carbon Dioxide BUN Creatinine Glucose POC Glucose 130 H 155 H Calcium Magnesium Direct Bilirubin AST ALT Alkaline Phosphatase Total Creatine Kinase CK-MB (CK-2) CK-MB (CK-2) Rel Index Troponin T C-Reactive Protein Total Protein Albumin Triglycerides Ur Specific [place] Urine WBC (Auto) Miscellaneous Test 04/04/17 04/04/17 04/04/17 05:27 12:22 18:18 WBC RBC Hgb Hct MCV MCH RDW Plt Count Lymph % (Auto) [place] % (Auto) Eos % (Auto) Baso % (Auto) Lymph # Baso # Seg Neutrophils % Lymphocytes % (Manual) Monocytes % (Manual) Nucleated RBC % Seg Neutrophils # Seg Neutrophils # Man Monocytes # (Manual) PT INR Activated Clotting Time POC ABG pH POC ABG pCO2 POC ABG pO2 Sodium Potassium Chloride Carbon Dioxide BUN Creatinine Glucose POC Glucose 164 H 146 H 130 H Calcium Magnesium Direct Bilirubin AST ALT Alkaline Phosphatase Total Creatine Kinase CK-MB (CK-2) CK-MB (CK-2) Rel Index Troponin T C-Reactive Protein Total Protein Albumin Triglycerides Ur Specific [place] Urine WBC (Auto) Miscellaneous Test 04/05/17 04/05/17 04/05/17 04:43 05:28 11:36 WBC RBC Hgb Hct MCV MCH RDW Plt Count Lymph % (Auto) [place] % (Auto) Eos % (Auto) Baso % (Auto) Lymph # Baso # Seg Neutrophils % Lymphocytes % (Manual) Monocytes % (Manual) Nucleated RBC % Seg Neutrophils # Seg Neutrophils # Man Monocytes # (Manual) PT INR Activated Clotting Time POC ABG pH 7.479 H POC ABG pCO2 33.5 L POC ABG pO2 76 L Sodium Potassium Chloride Carbon Dioxide BUN Creatinine Glucose POC Glucose 145 H 136 H Calcium Magnesium Direct Bilirubin AST ALT Alkaline Phosphatase Total Creatine Kinase CK-MB (CK-2) CK-MB (CK-2) Rel Index Troponin T C-Reactive Protein Total Protein Albumin Triglycerides Ur Specific [place] Urine WBC (Auto) Miscellaneous Test 04/05/17 04/06/17 04/06/17 17:58 00:16 05:26 WBC RBC Hgb Hct MCV MCH RDW Plt Count Lymph % (Auto) [place] % (Auto) Eos % (Auto) Baso % (Auto) Lymph # Baso # Seg Neutrophils % Lymphocytes % (Manual) Monocytes % (Manual) Nucleated RBC % Seg Neutrophils # Seg Neutrophils # Man Monocytes # (Manual) PT INR Activated Clotting Time POC ABG pH POC ABG pCO2 POC ABG pO2 Sodium Potassium Chloride Carbon Dioxide BUN Creatinine Glucose POC Glucose 130 H 159 H 146 H Calcium Magnesium Direct Bilirubin AST ALT Alkaline Phosphatase Total Creatine Kinase CK-MB (CK-2) CK-MB (CK-2) Rel Index Troponin T C-Reactive Protein Total Protein Albumin Triglycerides Ur Specific [place] Urine WBC (Auto) Miscellaneous Test 04/06/17 04/06/17 04/07/17 13:11 16:54 11:45 WBC RBC Hgb Hct MCV MCH RDW Plt Count Lymph % (Auto) [place] % (Auto) Eos % (Auto) Baso % (Auto) Lymph # Baso # Seg Neutrophils % Lymphocytes % (Manual) Monocytes % (Manual) Nucleated RBC % Seg Neutrophils # Seg Neutrophils # Man Monocytes # (Manual) PT INR Activated Clotting Time POC ABG pH 7.517 H POC ABG pCO2 32.1 L POC ABG pO2 Sodium Potassium Chloride Carbon Dioxide BUN Creatinine Glucose POC Glucose 132 H 123 H Calcium Magnesium Direct Bilirubin AST ALT Alkaline Phosphatase Total Creatine Kinase CK-MB (CK-2) CK-MB (CK-2) Rel Index Troponin T C-Reactive Protein Total Protein Albumin Triglycerides Ur Specific [place] Urine WBC (Auto) Miscellaneous Test 04/07/17 04/07/17 04/07/17 12:51 17:40 23:55 WBC RBC Hgb Hct MCV MCH RDW Plt Count Lymph % (Auto) [place] % (Auto) Eos % (Auto) Baso % (Auto) Lymph # Baso # Seg Neutrophils % Lymphocytes % (Manual) Monocytes % (Manual) Nucleated RBC % Seg Neutrophils # Seg Neutrophils # Man Monocytes # (Manual) PT INR Activated Clotting Time POC ABG pH POC ABG pCO2 POC ABG pO2 Sodium Potassium Chloride Carbon Dioxide BUN Creatinine Glucose POC Glucose 138 H 154 H 143 H Calcium Magnesium Direct Bilirubin AST ALT Alkaline Phosphatase Total Creatine Kinase CK-MB (CK-2) CK-MB (CK-2) Rel Index Troponin T C-Reactive Protein Total Protein Albumin Triglycerides Ur Specific [place] Urine WBC (Auto) Miscellaneous Test 04/08/17 04/08/17 04/08/17 05:27 11:14 17:44 WBC RBC Hgb Hct MCV MCH RDW Plt Count Lymph % (Auto) [place] % (Auto) Eos % (Auto) Baso % (Auto) Lymph # Baso # Seg Neutrophils % Lymphocytes % (Manual) Monocytes % (Manual) Nucleated RBC % Seg Neutrophils # Seg Neutrophils # Man Monocytes # (Manual) PT INR Activated Clotting Time POC ABG pH POC ABG pCO2 POC ABG pO2 Sodium Potassium Chloride Carbon Dioxide BUN Creatinine Glucose POC Glucose 142 H 153 H 129 H Calcium Magnesium Direct Bilirubin AST ALT Alkaline Phosphatase Total Creatine Kinase CK-MB (CK-2) CK-MB (CK-2) Rel Index Troponin T C-Reactive Protein Total Protein Albumin Triglycerides Ur Specific [place] Urine WBC (Auto) Miscellaneous Test 04/09/17 04/09/17 04/09/17 08:20 11:21 17:37 WBC RBC Hgb Hct MCV MCH RDW Plt Count Lymph % (Auto) [place] % (Auto) Eos % (Auto) Baso % (Auto) Lymph # Baso # Seg Neutrophils % Lymphocytes % (Manual) Monocytes % (Manual) Nucleated RBC % Seg Neutrophils # Seg Neutrophils # Man Monocytes # (Manual) PT INR Activated Clotting Time POC ABG pH POC ABG pCO2 POC ABG pO2 Sodium 147 H Potassium Chloride 108.8 H Carbon Dioxide BUN 39 H Creatinine 0.5 L Glucose 138 H POC Glucose 152 H 109 H Calcium Magnesium Direct Bilirubin AST ALT Alkaline Phosphatase Total Creatine Kinase CK-MB (CK-2) CK-MB (CK-2) Rel Index Troponin T C-Reactive Protein Total Protein Albumin Triglycerides Ur Specific [place] Urine WBC (Auto) Miscellaneous Test 04/10/17 04/10/17 04/10/17 00:13 04:16 04:16 WBC RBC Hgb 11.5 L Hct MCV 96 H MCH RDW Plt Count 103 L Lymph % (Auto) 11.1 L [place] % (Auto) Eos % (Auto) Baso % (Auto) Lymph # Baso # Seg Neutrophils % 81.5 H Lymphocytes % (Manual) Monocytes % (Manual) Nucleated RBC % Seg Neutrophils # 8.8 H Seg Neutrophils # Man Monocytes # (Manual) PT INR Activated Clotting Time POC ABG pH POC ABG pCO2 POC ABG pO2 Sodium 148 H Potassium Chloride 109.0 H Carbon Dioxide BUN 36 H Creatinine 0.5 L Glucose 131 H POC Glucose 127 H Calcium 8.1 L Magnesium 2.40 H Direct Bilirubin AST 206 H ALT 228 H Alkaline Phosphatase 178 H Total Creatine Kinase CK-MB (CK-2) CK-MB (CK-2) Rel Index Troponin T C-Reactive Protein Total Protein Albumin 2.8 L Triglycerides Ur Specific [place] Urine WBC (Auto) Miscellaneous Test 04/10/17 04/10/17 04/10/17 06:01 11:57 18:27 WBC RBC Hgb Hct MCV MCH RDW Plt Count Lymph % (Auto) [place] % (Auto) Eos % (Auto) Baso % (Auto) Lymph # Baso # Seg Neutrophils % Lymphocytes % (Manual) Monocytes % (Manual) Nucleated RBC % Seg Neutrophils # Seg Neutrophils # Man Monocytes # (Manual) PT INR Activated Clotting Time POC ABG pH POC ABG pCO2 POC ABG pO2 Sodium Potassium Chloride Carbon Dioxide BUN Creatinine Glucose POC Glucose 108 H 154 H 130 H Calcium Magnesium Direct Bilirubin AST ALT Alkaline Phosphatase Total Creatine Kinase CK-MB (CK-2) CK-MB (CK-2) Rel Index Troponin T C-Reactive Protein Total Protein Albumin Triglycerides Ur Specific [place] Urine WBC (Auto) Miscellaneous Test 04/11/17 04/11/17 04/12/17 12:25 17:10 00:22 WBC RBC Hgb Hct MCV MCH RDW Plt Count Lymph % (Auto) [place] % (Auto) Eos % (Auto) Baso % (Auto) Lymph # Baso # Seg Neutrophils % Lymphocytes % (Manual) Monocytes % (Manual) Nucleated RBC % Seg Neutrophils # Seg Neutrophils # Man Monocytes # (Manual) PT INR Activated Clotting Time POC ABG pH POC ABG pCO2 POC ABG pO2 Sodium Potassium Chloride Carbon Dioxide BUN Creatinine Glucose POC Glucose 107 H 129 H 128 H Calcium Magnesium Direct Bilirubin AST ALT Alkaline Phosphatase Total Creatine Kinase CK-MB (CK-2) CK-MB (CK-2) Rel Index Troponin T C-Reactive Protein Total Protein Albumin Triglycerides Ur Specific [place] Urine WBC (Auto) Miscellaneous Test 04/12/17 04/12/17 04/12/17 05:00 11:57 17:47 WBC RBC Hgb Hct MCV MCH RDW Plt Count Lymph % (Auto) [place] % (Auto) Eos % (Auto) Baso % (Auto) Lymph # Baso # Seg Neutrophils % Lymphocytes % (Manual) Monocytes % (Manual) Nucleated RBC % Seg Neutrophils # Seg Neutrophils # Man Monocytes # (Manual) PT INR Activated Clotting Time POC ABG pH POC ABG pCO2 POC ABG pO2 Sodium Potassium Chloride Carbon Dioxide BUN Creatinine Glucose POC Glucose 140 H 142 H Calcium Magnesium Direct Bilirubin AST 158 H ALT 184 H Alkaline Phosphatase 170 H Total Creatine Kinase CK-MB (CK-2) CK-MB (CK-2) Rel Index Troponin T C-Reactive Protein Total Protein Albumin 2.8 L Triglycerides Ur Specific [place] Urine WBC (Auto) Miscellaneous Test 01/04/12/17 04/13/17 21:36 21:36 01:37 WBC RBC Hgb Hct MCV MCH RDW Plt Count Lymph % (Auto) [place] % (Auto) Eos % (Auto) Baso % (Auto) Lymph # Baso # Seg Neutrophils % Lymphocytes % (Manual) Monocytes % (Manual) Nucleated RBC % Seg Neutrophils # Seg Neutrophils # Man Monocytes # (Manual) PT INR Activated Clotting Time POC ABG pH POC ABG pCO2 POC ABG pO2 Sodium Potassium Chloride Carbon Dioxide BUN Creatinine Glucose POC Glucose 126 H Calcium Magnesium Direct Bilirubin AST ALT Alkaline Phosphatase Total Creatine Kinase 1404 H CK-MB (CK-2) 8.0 H CK-MB (CK-2) Rel Index Troponin T 0.767 H* C-Reactive Protein Total Protein Albumin Triglycerides Ur Specific [place] Urine WBC (Auto) Miscellaneous Test 04/13/17 04/13/17 04/13/17 04:45 04:52 12:17 WBC RBC Hgb Hct MCV MCH RDW Plt Count Lymph % (Auto) [place] % (Auto) Eos % (Auto) Baso % (Auto) Lymph # Baso # Seg Neutrophils % Lymphocytes % (Manual) Monocytes % (Manual) Nucleated RBC % Seg Neutrophils # Seg Neutrophils # Man Monocytes # (Manual) PT INR Activated Clotting Time POC ABG pH POC ABG pCO2 POC ABG pO2 Sodium 148 H Potassium Chloride 112.8 H Carbon Dioxide BUN 33 H Creatinine 0.4 L Glucose 121 H POC Glucose 126 H 149 H Calcium Magnesium Direct Bilirubin AST 160 H ALT 189 H Alkaline Phosphatase 166 H Total Creatine Kinase CK-MB (CK-2) CK-MB (CK-2) Rel Index Troponin T C-Reactive Protein Total Protein Albumin 2.6 L Triglycerides Ur Specific [place] Urine WBC (Auto) Miscellaneous Test 04/13/17 04/14/17 04/14/17 17:45 00:20 00:45 WBC RBC Hgb Hct MCV MCH RDW Plt Count Lymph % (Auto) [place] % (Auto) Eos % (Auto) Baso % (Auto) Lymph # Baso # Seg Neutrophils % Lymphocytes % (Manual) Monocytes % (Manual) Nucleated RBC % Seg Neutrophils # Seg Neutrophils # Man Monocytes # (Manual) PT INR Activated Clotting Time POC ABG pH POC ABG pCO2 POC ABG pO2 Sodium Potassium Chloride Carbon Dioxide BUN Creatinine Glucose POC Glucose 130 H 144 H 144 H Calcium Magnesium Direct Bilirubin AST ALT Alkaline Phosphatase Total Creatine Kinase CK-MB (CK-2) CK-MB (CK-2) Rel Index Troponin T C-Reactive Protein Total Protein Albumin Triglycerides Ur Specific [place] Urine WBC (Auto) Miscellaneous Test 04/14/17 04/14/17 04/14/17 05:40 11:06 11:31 WBC RBC Hgb Hct MCV MCH RDW Plt Count Lymph % (Auto) [place] % (Auto) Eos % (Auto) Baso % (Auto) Lymph # Baso # Seg Neutrophils % Lymphocytes % (Manual) Monocytes % (Manual) Nucleated RBC % Seg Neutrophils # Seg Neutrophils # Man Monocytes # (Manual) PT INR Activated Clotting Time POC ABG pH POC ABG pCO2 POC ABG pO2 Sodium Potassium Chloride Carbon Dioxide BUN Creatinine Glucose POC Glucose 139 H 123 H Calcium Magnesium Direct Bilirubin AST ALT Alkaline Phosphatase Total Creatine Kinase CK-MB (CK-2) CK-MB (CK-2) Rel Index Troponin T C-Reactive Protein Total Protein Albumin Triglycerides Ur Specific [place] 1.033 H Urine WBC (Auto) > 182.0 H Miscellaneous Test 04/14/17 04/14/17 04/15/17 18:00 23:52 05:15 WBC 12.5 H RBC 3.38 L Hgb 10.6 L Hct 32.7 L MCV 97 H MCH RDW Plt Count 107 L Lymph % (Auto) 8.7 L [place] % (Auto) Eos % (Auto) Baso % (Auto) Lymph # 1.1 L Baso # Seg Neutrophils % 86.1 H Lymphocytes % (Manual) Monocytes % (Manual) Nucleated RBC % Seg Neutrophils # 10.7 H Seg Neutrophils # Man Monocytes # (Manual) PT INR Activated Clotting Time POC ABG pH POC ABG pCO2 POC ABG pO2 Sodium Potassium Chloride Carbon Dioxide BUN Creatinine Glucose POC Glucose 133 H 133 H Calcium Magnesium Direct Bilirubin AST ALT Alkaline Phosphatase Total Creatine Kinase CK-MB (CK-2) CK-MB (CK-2) Rel Index Troponin T C-Reactive Protein Total Protein Albumin Triglycerides Ur Specific [place] Urine WBC (Auto) Miscellaneous Test 04/15/17 04/15/17 04/15/17 05:15 05:25 11:50 WBC RBC Hgb Hct MCV MCH RDW Plt Count Lymph % (Auto) [place] % (Auto) Eos % (Auto) Baso % (Auto) Lymph # Baso # Seg Neutrophils % Lymphocytes % (Manual) Monocytes % (Manual) Nucleated RBC % Seg Neutrophils # Seg Neutrophils # Man Monocytes # (Manual) PT INR Activated Clotting Time POC ABG pH POC ABG pCO2 POC ABG pO2 Sodium 149 H Potassium 3.5 L Chloride 114.1 H Carbon Dioxide 21 L BUN 29 H Creatinine 0.4 L Glucose 128 H POC Glucose 133 H 107 H Calcium 8.3 L Magnesium Direct Bilirubin 0.4 H AST 149 H ALT 182 H Alkaline Phosphatase 143 H Total Creatine Kinase CK-MB (CK-2) CK-MB (CK-2) Rel Index Troponin T C-Reactive Protein Total Protein Albumin 2.5 L Triglycerides Ur Specific [place] Urine WBC (Auto) Miscellaneous Test 04/15/17 04/16/17 04/16/17 16:55 00:02 03:17 WBC RBC 3.39 L Hgb 10.5 L Hct 32.4 L MCV 96 H MCH RDW Plt Count 106 L Lymph % (Auto) 6.7 L [place] % (Auto) Eos % (Auto) Baso % (Auto) Lymph # 0.6 L Baso # Seg Neutrophils % 86.8 H Lymphocytes % (Manual) Monocytes % (Manual) Nucleated RBC % Seg Neutrophils # 8.2 H Seg Neutrophils # Man Monocytes # (Manual) PT INR Activated Clotting Time POC ABG pH POC ABG pCO2 POC ABG pO2 Sodium Potassium Chloride Carbon Dioxide BUN Creatinine Glucose POC Glucose 146 H 148 H Calcium Magnesium Direct Bilirubin AST ALT Alkaline Phosphatase Total Creatine Kinase CK-MB (CK-2) CK-MB (CK-2) Rel Index Troponin T C-Reactive Protein Total Protein Albumin Triglycerides Ur Specific [place] Urine WBC (Auto) Miscellaneous Test 04/16/17 04/16/17 04/16/17 03:17 05:19 11:13 WBC RBC Hgb Hct MCV MCH RDW Plt Count Lymph % (Auto) [place] % (Auto) Eos % (Auto) Baso % (Auto) Lymph # Baso # Seg Neutrophils % Lymphocytes % (Manual) Monocytes % (Manual) Nucleated RBC % Seg Neutrophils # Seg Neutrophils # Man Monocytes # (Manual) PT INR Activated Clotting Time POC ABG pH POC ABG pCO2 POC ABG pO2 Sodium 149 H Potassium Chloride 111.1 H Carbon Dioxide 20 L BUN 27 H Creatinine 0.3 L Glucose 156 H POC Glucose 171 H 169 H Calcium 8.3 L Magnesium Direct Bilirubin AST ALT Alkaline Phosphatase Total Creatine Kinase CK-MB (CK-2) CK-MB (CK-2) Rel Index Troponin T C-Reactive Protein Total Protein Albumin Triglycerides Ur Specific [place] Urine WBC (Auto) Miscellaneous Test 04/16/17 04/17/17 04/17/17 17:03 00:00 05:09 WBC RBC Hgb Hct MCV MCH RDW Plt Count Lymph % (Auto) [place] % (Auto) Eos % (Auto) Baso % (Auto) Lymph # Baso # Seg Neutrophils % Lymphocytes % (Manual) Monocytes % (Manual) Nucleated RBC % Seg Neutrophils # Seg Neutrophils # Man Monocytes # (Manual) PT INR Activated Clotting Time POC ABG pH POC ABG pCO2 POC ABG pO2 Sodium Potassium Chloride Carbon Dioxide BUN Creatinine Glucose POC Glucose 151 H 165 H 145 H Calcium Magnesium Direct Bilirubin AST ALT Alkaline Phosphatase Total Creatine Kinase CK-MB (CK-2) CK-MB (CK-2) Rel Index Troponin T C-Reactive Protein Total Protein Albumin Triglycerides Ur Specific [place] Urine WBC (Auto) Miscellaneous Test 04/17/17 04/17/17 04/18/17 11:38 17:47 00:01 WBC RBC Hgb Hct MCV MCH RDW Plt Count Lymph % (Auto) [place] % (Auto) Eos % (Auto) Baso % (Auto) Lymph # Baso # Seg Neutrophils % Lymphocytes % (Manual) Monocytes % (Manual) Nucleated RBC % Seg Neutrophils # Seg Neutrophils # Man Monocytes # (Manual) PT INR Activated Clotting Time POC ABG pH POC ABG pCO2 POC ABG pO2 Sodium Potassium Chloride Carbon Dioxide BUN Creatinine Glucose POC Glucose 170 H 161 H 131 H Calcium Magnesium Direct Bilirubin AST ALT Alkaline Phosphatase Total Creatine Kinase CK-MB (CK-2) CK-MB (CK-2) Rel Index Troponin T C-Reactive Protein Total Protein Albumin Triglycerides Ur Specific [place] Urine WBC (Auto) Miscellaneous Test 04/18/17 04/18/17 04/18/17 03:55 03:55 05:30 WBC RBC 3.05 L Hgb 9.8 L Hct 29.0 L MCV 95 H MCH RDW Plt Count 113 L Lymph % (Auto) [place] % (Auto) Eos % (Auto) 5.3 H Baso % (Auto) Lymph # Baso # Seg Neutrophils % 71.5 H Lymphocytes % (Manual) Monocytes % (Manual) Nucleated RBC % Seg Neutrophils # Seg Neutrophils # Man Monocytes # (Manual) PT INR Activated Clotting Time POC ABG pH 7.460 H POC ABG pCO2 30.8 L POC ABG pO2 129 H Sodium Potassium Chloride Carbon Dioxide 21 L BUN 25 H Creatinine 0.4 L Glucose 123 H POC Glucose Calcium 8.3 L Magnesium Direct Bilirubin AST ALT Alkaline Phosphatase Total Creatine Kinase CK-MB (CK-2) CK-MB (CK-2) Rel Index Troponin T C-Reactive Protein Total Protein Albumin Triglycerides Ur Specific [place] Urine WBC (Auto) Miscellaneous Test 04/18/17 04/18/17 04/19/17 17:10 23:40 04:36 WBC RBC 3.21 L Hgb 10.2 L Hct 30.4 L MCV 95 H MCH RDW Plt Count 131 L Lymph % (Auto) 12.1 L [place] % (Auto) Eos % (Auto) 4.7 H Baso % (Auto) 2.4 H Lymph # 0.9 L Baso # 0.2 H Seg Neutrophils % 75.0 H Lymphocytes % (Manual) Monocytes % (Manual) Nucleated RBC % Seg Neutrophils # Seg Neutrophils # Man Monocytes # (Manual) PT INR Activated Clotting Time POC ABG pH POC ABG pCO2 POC ABG pO2 Sodium Potassium Chloride Carbon Dioxide BUN Creatinine Glucose POC Glucose 135 H 157 H Calcium Magnesium Direct Bilirubin AST ALT Alkaline Phosphatase Total Creatine Kinase CK-MB (CK-2) CK-MB (CK-2) Rel Index Troponin T C-Reactive Protein Total Protein Albumin Triglycerides Ur Specific [place] Urine WBC (Auto) Miscellaneous Test 04/19/17 04/19/17 04/19/17 04:36 05:12 06:50 WBC RBC Hgb Hct MCV MCH RDW Plt Count Lymph % (Auto) [place] % (Auto) Eos % (Auto) Baso % (Auto) Lymph # Baso # Seg Neutrophils % Lymphocytes % (Manual) Monocytes % (Manual) Nucleated RBC % Seg Neutrophils # Seg Neutrophils # Man Monocytes # (Manual) PT INR Activated Clotting Time POC ABG pH 7.516 H POC ABG pCO2 28.0 L POC ABG pO2 Sodium Potassium Chloride Carbon Dioxide 21 L BUN 23 H Creatinine 0.2 L Glucose 137 H POC Glucose 131 H Calcium 7.9 L Magnesium Direct Bilirubin AST ALT Alkaline Phosphatase Total Creatine Kinase CK-MB (CK-2) CK-MB (CK-2) Rel Index Troponin T C-Reactive Protein Total Protein Albumin Triglycerides Ur Specific [place] Urine WBC (Auto) Miscellaneous Test 04/19/17 04/19/17 04/20/17 12:36 17:42 00:12 WBC RBC Hgb Hct MCV MCH RDW Plt Count Lymph % (Auto) [place] % (Auto) Eos % (Auto) Baso % (Auto) Lymph # Baso # Seg Neutrophils % Lymphocytes % (Manual) Monocytes % (Manual) Nucleated RBC % Seg Neutrophils # Seg Neutrophils # Man Monocytes # (Manual) PT INR Activated Clotting Time POC ABG pH POC ABG pCO2 POC ABG pO2 Sodium Potassium Chloride Carbon Dioxide BUN Creatinine Glucose POC Glucose 128 H 140 H 132 H Calcium Magnesium Direct Bilirubin AST ALT Alkaline Phosphatase Total Creatine Kinase CK-MB (CK-2) CK-MB (CK-2) Rel Index Troponin T C-Reactive Protein Total Protein Albumin Triglycerides Ur Specific [place] Urine WBC (Auto) Miscellaneous Test 04/20/17 04/20/17 04/20/17 03:35 03:35 05:10 WBC RBC 3.34 L Hgb 10.4 L Hct 31.6 L MCV 95 H MCH RDW Plt Count Lymph % (Auto) 12.9 L [place] % (Auto) Eos % (Auto) Baso % (Auto) Lymph # Baso # Seg Neutrophils % 77.3 H Lymphocytes % (Manual) Monocytes % (Manual) Nucleated RBC % Seg Neutrophils # Seg Neutrophils # Man Monocytes # (Manual) PT INR Activated Clotting Time POC ABG pH POC ABG pCO2 POC ABG pO2 Sodium Potassium Chloride Carbon Dioxide BUN Creatinine 0.3 L Glucose 155 H POC Glucose 135 H Calcium 7.8 L Magnesium Direct Bilirubin AST ALT Alkaline Phosphatase Total Creatine Kinase CK-MB (CK-2) CK-MB (CK-2) Rel Index Troponin T C-Reactive Protein Total Protein Albumin Triglycerides Ur Specific [place] Urine WBC (Auto) Miscellaneous Test 04/20/17 04/20/17 04/21/17 12:49 18:21 00:05 WBC RBC Hgb Hct MCV MCH RDW Plt Count Lymph % (Auto) [place] % (Auto) Eos % (Auto) Baso % (Auto) Lymph # Baso # Seg Neutrophils % Lymphocytes % (Manual) Monocytes % (Manual) Nucleated RBC % Seg Neutrophils # Seg Neutrophils # Man Monocytes # (Manual) PT INR Activated Clotting Time POC ABG pH POC ABG pCO2 POC ABG pO2 Sodium Potassium Chloride Carbon Dioxide BUN Creatinine Glucose POC Glucose 155 H 165 H 141 H Calcium Magnesium Direct Bilirubin AST ALT Alkaline Phosphatase Total Creatine Kinase CK-MB (CK-2) CK-MB (CK-2) Rel Index Troponin T C-Reactive Protein Total Protein Albumin Triglycerides Ur Specific [place] Urine WBC (Auto) Miscellaneous Test 04/21/17 04/21/17 04/21/17 06:00 12:11 17:04 WBC RBC Hgb Hct MCV MCH RDW Plt Count Lymph % (Auto) [place] % (Auto) Eos % (Auto) Baso % (Auto) Lymph # Baso # Seg Neutrophils % Lymphocytes % (Manual) Monocytes % (Manual) Nucleated RBC % Seg Neutrophils # Seg Neutrophils # Man Monocytes # (Manual) PT INR Activated Clotting Time POC ABG pH POC ABG pCO2 POC ABG pO2 Sodium Potassium Chloride Carbon Dioxide BUN Creatinine Glucose POC Glucose 152 H 165 H 156 H Calcium Magnesium Direct Bilirubin AST ALT Alkaline Phosphatase Total Creatine Kinase CK-MB (CK-2) CK-MB (CK-2) Rel Index Troponin T C-Reactive Protein Total Protein Albumin Triglycerides Ur Specific [place] Urine WBC (Auto) Miscellaneous Test 04/21/17 04/21/17 04/22/17 22:00 23:59 05:49 WBC RBC Hgb Hct MCV MCH RDW Plt Count Lymph % (Auto) [place] % (Auto) Eos % (Auto) Baso % (Auto) Lymph # Baso # Seg Neutrophils % Lymphocytes % (Manual) Monocytes % (Manual) Nucleated RBC % Seg Neutrophils # Seg Neutrophils # Man Monocytes # (Manual) PT INR Activated Clotting Time POC ABG pH POC ABG pCO2 POC ABG pO2 Sodium Potassium Chloride Carbon Dioxide BUN Creatinine Glucose POC Glucose 166 H 173 H Calcium Magnesium Direct Bilirubin AST ALT Alkaline Phosphatase Total Creatine Kinase CK-MB (CK-2) CK-MB (CK-2) Rel Index Troponin T C-Reactive Protein Total Protein Albumin Triglycerides Ur Specific [place] Urine WBC (Auto) 10.0 H Miscellaneous Test 04/22/17 04/22/17 04/23/17 11:11 18:04 00:37 WBC RBC Hgb Hct MCV MCH RDW Plt Count Lymph % (Auto) [place] % (Auto) Eos % (Auto) Baso % (Auto) Lymph # Baso # Seg Neutrophils % Lymphocytes % (Manual) Monocytes % (Manual) Nucleated RBC % Seg Neutrophils # Seg Neutrophils # Man Monocytes # (Manual) PT INR Activated Clotting Time POC ABG pH POC ABG pCO2 POC ABG pO2 Sodium Potassium Chloride Carbon Dioxide BUN Creatinine Glucose POC Glucose 172 H 140 H 135 H Calcium Magnesium Direct Bilirubin AST ALT Alkaline Phosphatase Total Creatine Kinase CK-MB (CK-2) CK-MB (CK-2) Rel Index Troponin T C-Reactive Protein Total Protein Albumin Triglycerides Ur Specific [place] Urine WBC (Auto) Miscellaneous Test 04/23/17 04/23/17 04/23/17 05:33 06:20 11:10 WBC RBC 3.19 L Hgb 9.9 L Hct 30.0 L MCV MCH RDW Plt Count Lymph % (Auto) 8.0 L [place] % (Auto) Eos % (Auto) Baso % (Auto) Lymph # 0.8 L Baso # Seg Neutrophils % 84.5 H Lymphocytes % (Manual) Monocytes % (Manual) Nucleated RBC % Seg Neutrophils # 8.2 H Seg Neutrophils # Man Monocytes # (Manual) PT INR Activated Clotting Time POC ABG pH POC ABG pCO2 POC ABG pO2 Sodium Potassium Chloride Carbon Dioxide BUN Creatinine Glucose POC Glucose 134 H 134 H Calcium Magnesium Direct Bilirubin AST ALT Alkaline Phosphatase Total Creatine Kinase CK-MB (CK-2) CK-MB (CK-2) Rel Index Troponin T C-Reactive Protein Total Protein Albumin Triglycerides Ur Specific [place] Urine WBC (Auto) Miscellaneous Test 04/23/17 04/24/17 04/24/17 17:26 00:53 06:46 WBC RBC Hgb Hct MCV MCH RDW Plt Count Lymph % (Auto) [place] % (Auto) Eos % (Auto) Baso % (Auto) Lymph # Baso # Seg Neutrophils % Lymphocytes % (Manual) Monocytes % (Manual) Nucleated RBC % Seg Neutrophils # Seg Neutrophils # Man Monocytes # (Manual) PT INR Activated Clotting Time POC ABG pH POC ABG pCO2 POC ABG pO2 Sodium Potassium Chloride Carbon Dioxide BUN Creatinine Glucose POC Glucose 164 H 146 H 125 H Calcium Magnesium Direct Bilirubin AST ALT Alkaline Phosphatase Total Creatine Kinase CK-MB (CK-2) CK-MB (CK-2) Rel Index Troponin T C-Reactive Protein Total Protein Albumin Triglycerides Ur Specific [place] Urine WBC (Auto) Miscellaneous Test 04/24/17 04/24/17 04/24/17 11:55 17:50 23:36 WBC RBC Hgb Hct MCV MCH RDW Plt Count Lymph % (Auto) [place] % (Auto) Eos % (Auto) Baso % (Auto) Lymph # Baso # Seg Neutrophils % Lymphocytes % (Manual) Monocytes % (Manual) Nucleated RBC % Seg Neutrophils # Seg Neutrophils # Man Monocytes # (Manual) PT INR Activated Clotting Time POC ABG pH POC ABG pCO2 POC ABG pO2 Sodium Potassium Chloride Carbon Dioxide BUN Creatinine Glucose POC Glucose 156 H 146 H 131 H Calcium Magnesium Direct Bilirubin AST ALT Alkaline Phosphatase Total Creatine Kinase CK-MB (CK-2) CK-MB (CK-2) Rel Index Troponin T C-Reactive Protein Total Protein Albumin Triglycerides Ur Specific [place] Urine WBC (Auto) Miscellaneous Test 04/25/17 04/25/17 04/25/17 04:51 05:16 07:07 WBC RBC Hgb Hct MCV MCH RDW Plt Count Lymph % (Auto) [place] % (Auto) Eos % (Auto) Baso % (Auto) Lymph # Baso # Seg Neutrophils % Lymphocytes % (Manual) Monocytes % (Manual) Nucleated RBC % Seg Neutrophils # Seg Neutrophils # Man Monocytes # (Manual) PT INR Activated Clotting Time POC ABG pH POC ABG pCO2 POC ABG pO2 Sodium Potassium Chloride Carbon Dioxide BUN Creatinine Glucose POC Glucose 139 H Calcium Magnesium Direct Bilirubin AST 105 H ALT 204 H Alkaline Phosphatase 189 H Total Creatine Kinase CK-MB (CK-2) CK-MB (CK-2) Rel Index Troponin T C-Reactive Protein Total Protein Albumin 2.4 L Triglycerides Ur Specific [place] Urine WBC (Auto) Miscellaneous Test Flexitest 1 H 04/25/17 04/25/17 04/25/17 12:29 17:23 23:32 WBC RBC Hgb Hct MCV MCH RDW Plt Count Lymph % (Auto) [place] % (Auto) Eos % (Auto) Baso % (Auto) Lymph # Baso # Seg Neutrophils % Lymphocytes % (Manual) Monocytes % (Manual) Nucleated RBC % Seg Neutrophils # Seg Neutrophils # Man Monocytes # (Manual) PT INR Activated Clotting Time POC ABG pH POC ABG pCO2 POC ABG pO2 Sodium Potassium Chloride Carbon Dioxide BUN Creatinine Glucose POC Glucose 132 H 133 H 128 H Calcium Magnesium Direct Bilirubin AST ALT Alkaline Phosphatase Total Creatine Kinase CK-MB (CK-2) CK-MB (CK-2) Rel Index Troponin T C-Reactive Protein Total Protein Albumin Triglycerides Ur Specific [place] Urine WBC (Auto) Miscellaneous Test 04/26/17 04/26/17 04/26/17 05:24 11:28 17:09 WBC RBC Hgb Hct MCV MCH RDW Plt Count Lymph % (Auto) [place] % (Auto) Eos % (Auto) Baso % (Auto) Lymph # Baso # Seg Neutrophils % Lymphocytes % (Manual) Monocytes % (Manual) Nucleated RBC % Seg Neutrophils # Seg Neutrophils # Man Monocytes # (Manual) PT INR Activated Clotting Time POC ABG pH POC ABG pCO2 POC ABG pO2 Sodium Potassium Chloride Carbon Dioxide BUN Creatinine Glucose POC Glucose 132 H 146 H 141 H Calcium Magnesium Direct Bilirubin AST ALT Alkaline Phosphatase Total Creatine Kinase CK-MB (CK-2) CK-MB (CK-2) Rel Index Troponin T C-Reactive Protein Total Protein Albumin Triglycerides Ur Specific [place] Urine WBC (Auto) Miscellaneous Test 04/26/17 04/27/17 04/27/17 23:52 05:40 05:40 WBC RBC 3.22 L Hgb 10.0 L Hct 29.9 L MCV MCH RDW Plt Count Lymph % (Auto) [place] % (Auto) Eos % (Auto) Baso % (Auto) Lymph # Baso # Seg Neutrophils % 76.6 H Lymphocytes % (Manual) Monocytes % (Manual) Nucleated RBC % Seg Neutrophils # Seg Neutrophils # Man Monocytes # (Manual) PT INR Activated Clotting Time POC ABG pH POC ABG pCO2 POC ABG pO2 Sodium Potassium Chloride Carbon Dioxide BUN Creatinine Glucose POC Glucose 140 H Calcium Magnesium Direct Bilirubin AST 66 H ALT 137 H Alkaline Phosphatase 169 H Total Creatine Kinase CK-MB (CK-2) CK-MB (CK-2) Rel Index Troponin T C-Reactive Protein Total Protein 6.2 L Albumin 2.6 L Triglycerides Ur Specific [place] Urine WBC (Auto) Miscellaneous Test 04/27/17 04/27/17 04/27/17 05:40 06:10 11:13 WBC RBC Hgb Hct MCV MCH RDW Plt Count Lymph % (Auto) [place] % (Auto) Eos % (Auto) Baso % (Auto) Lymph # Baso # Seg Neutrophils % Lymphocytes % (Manual) Monocytes % (Manual) Nucleated RBC % Seg Neutrophils # Seg Neutrophils # Man Monocytes # (Manual) PT INR Activated Clotting Time POC ABG pH POC ABG pCO2 POC ABG pO2 Sodium Potassium Chloride Carbon Dioxide BUN Creatinine 0.2 L Glucose 139 H POC Glucose 130 H 151 H Calcium Magnesium Direct Bilirubin AST ALT Alkaline Phosphatase Total Creatine Kinase CK-MB (CK-2) CK-MB (CK-2) Rel Index Troponin T C-Reactive Protein Total Protein Albumin Triglycerides Ur Specific [place] Urine WBC (Auto) Miscellaneous Test 04/27/17 04/27/17 04/28/17 17:37 23:19 05:24 WBC RBC Hgb Hct MCV MCH RDW Plt Count Lymph % (Auto) [place] % (Auto) Eos % (Auto) Baso % (Auto) Lymph # Baso # Seg Neutrophils % Lymphocytes % (Manual) Monocytes % (Manual) Nucleated RBC % Seg Neutrophils # Seg Neutrophils # Man Monocytes # (Manual) PT INR Activated Clotting Time POC ABG pH POC ABG pCO2 POC ABG pO2 Sodium Potassium Chloride Carbon Dioxide BUN Creatinine Glucose POC Glucose 159 H 130 H 132 H Calcium Magnesium Direct Bilirubin AST ALT Alkaline Phosphatase Total Creatine Kinase CK-MB (CK-2) CK-MB (CK-2) Rel Index Troponin T C-Reactive Protein Total Protein Albumin Triglycerides Ur Specific [place] Urine WBC (Auto) Miscellaneous Test 04/28/17 04/28/17 04/28/17 11:15 17:38 23:23 WBC RBC Hgb Hct MCV MCH RDW Plt Count Lymph % (Auto) [place] % (Auto) Eos % (Auto) Baso % (Auto) Lymph # Baso # Seg Neutrophils % Lymphocytes % (Manual) Monocytes % (Manual) Nucleated RBC % Seg Neutrophils # Seg Neutrophils # Man Monocytes # (Manual) PT INR Activated Clotting Time POC ABG pH POC ABG pCO2 POC ABG pO2 Sodium Potassium Chloride Carbon Dioxide BUN Creatinine Glucose POC Glucose 162 H 133 H 138 H Calcium Magnesium Direct Bilirubin AST ALT Alkaline Phosphatase Total Creatine Kinase CK-MB (CK-2) CK-MB (CK-2) Rel Index Troponin T C-Reactive Protein Total Protein Albumin Triglycerides Ur Specific [place] Urine WBC (Auto) Miscellaneous Test 04/29/17 04/29/17 04/29/17 05:15 12:55 17:21 WBC RBC Hgb Hct MCV MCH RDW Plt Count Lymph % (Auto) [place] % (Auto) Eos % (Auto) Baso % (Auto) Lymph # Baso # Seg Neutrophils % Lymphocytes % (Manual) Monocytes % (Manual) Nucleated RBC % Seg Neutrophils # Seg Neutrophils # Man Monocytes # (Manual) PT INR Activated Clotting Time POC ABG pH POC ABG pCO2 POC ABG pO2 Sodium Potassium Chloride Carbon Dioxide BUN Creatinine Glucose POC Glucose 135 H 127 H 138 H Calcium Magnesium Direct Bilirubin AST ALT Alkaline Phosphatase Total Creatine Kinase CK-MB (CK-2) CK-MB (CK-2) Rel Index Troponin T C-Reactive Protein Total Protein Albumin Triglycerides Ur Specific [place] Urine WBC (Auto) Miscellaneous Test 04/29/17 04/30/17 04/30/17 23:52 04:55 12:22 WBC RBC Hgb Hct MCV MCH RDW Plt Count Lymph % (Auto) [place] % (Auto) Eos % (Auto) Baso % (Auto) Lymph # Baso # Seg Neutrophils % Lymphocytes % (Manual) Monocytes % (Manual) Nucleated RBC % Seg Neutrophils # Seg Neutrophils # Man Monocytes # (Manual) PT INR Activated Clotting Time POC ABG pH POC ABG pCO2 POC ABG pO2 Sodium Potassium Chloride Carbon Dioxide BUN Creatinine Glucose POC Glucose 142 H 146 H 132 H Calcium Magnesium Direct Bilirubin AST ALT Alkaline Phosphatase Total Creatine Kinase CK-MB (CK-2) CK-MB (CK-2) Rel Index Troponin T C-Reactive Protein Total Protein Albumin Triglycerides Ur Specific [place] Urine WBC (Auto) Miscellaneous Test 04/30/17 04/30/17 04/30/17 14:25 17:47 18:20 WBC RBC Hgb Hct MCV MCH RDW Plt Count Lymph % (Auto) [place] % (Auto) Eos % (Auto) Baso % (Auto) Lymph # Baso # Seg Neutrophils % Lymphocytes % (Manual) Monocytes % (Manual) Nucleated RBC % Seg Neutrophils # Seg Neutrophils # Man Monocytes # (Manual) PT INR Activated Clotting Time POC ABG pH 7.551 H POC ABG pCO2 32.7 L POC ABG pO2 Sodium Potassium Chloride Carbon Dioxide BUN 21 H Creatinine 0.2 L Glucose 141 H POC Glucose 139 H Calcium Magnesium Direct Bilirubin AST ALT Alkaline Phosphatase Total Creatine Kinase CK-MB (CK-2) CK-MB (CK-2) Rel Index Troponin T C-Reactive Protein Total Protein Albumin Triglycerides Ur Specific [place] Urine WBC (Auto) Miscellaneous Test 05/01/17 05/01/17 05/01/17 01:26 05:30 05:30 WBC RBC 3.49 L Hgb 10.3 L Hct 31.9 L MCV MCH RDW Plt Count Lymph % (Auto) [place] % (Auto) 8.1 H Eos % (Auto) Baso % (Auto) Lymph # Baso # Seg Neutrophils % 71.3 H Lymphocytes % (Manual) Monocytes % (Manual) Nucleated RBC % Seg Neutrophils # Seg Neutrophils # Man Monocytes # (Manual) PT INR Activated Clotting Time POC ABG pH POC ABG pCO2 POC ABG pO2 Sodium 136 L Potassium Chloride 97.6 L Carbon Dioxide BUN Creatinine 0.2 L Glucose 123 H POC Glucose 116 H Calcium Magnesium Direct Bilirubin AST 71 H ALT 125 H Alkaline Phosphatase 158 H Total Creatine Kinase CK-MB (CK-2) CK-MB (CK-2) Rel Index Troponin T C-Reactive Protein Total Protein Albumin 2.6 L Triglycerides Ur Specific [place] Urine WBC (Auto) Miscellaneous Test 05/01/17 05/01/17 05/02/17 11:59 17:23 00:08 WBC RBC Hgb Hct MCV MCH RDW Plt Count Lymph % (Auto) [place] % (Auto) Eos % (Auto) Baso % (Auto) Lymph # Baso # Seg Neutrophils % Lymphocytes % (Manual) Monocytes % (Manual) Nucleated RBC % Seg Neutrophils # Seg Neutrophils # Man Monocytes # (Manual) PT INR Activated Clotting Time POC ABG pH POC ABG pCO2 POC ABG pO2 Sodium Potassium Chloride Carbon Dioxide BUN Creatinine Glucose POC Glucose 118 H 144 H 122 H Calcium Magnesium Direct Bilirubin AST ALT Alkaline Phosphatase Total Creatine Kinase CK-MB (CK-2) CK-MB (CK-2) Rel Index Troponin T C-Reactive Protein Total Protein Albumin Triglycerides Ur Specific [place] Urine WBC (Auto) Miscellaneous Test 05/02/17 05/02/17 05/02/17 05:50 11:21 17:48 WBC RBC Hgb Hct MCV MCH RDW Plt Count Lymph % (Auto) [place] % (Auto) Eos % (Auto) Baso % (Auto) Lymph # Baso # Seg Neutrophils % Lymphocytes % (Manual) Monocytes % (Manual) Nucleated RBC % Seg Neutrophils # Seg Neutrophils # Man Monocytes # (Manual) PT INR Activated Clotting Time POC ABG pH POC ABG pCO2 POC ABG pO2 Sodium Potassium Chloride Carbon Dioxide BUN Creatinine Glucose POC Glucose 120 H 121 H 140 H Calcium Magnesium Direct Bilirubin AST ALT Alkaline Phosphatase Total Creatine Kinase CK-MB (CK-2) CK-MB (CK-2) Rel Index Troponin T C-Reactive Protein Total Protein Albumin Triglycerides Ur Specific [place] Urine WBC (Auto) Miscellaneous Test 05/02/17 05/03/17 05/03/17 23:12 05:35 11:52 WBC RBC Hgb Hct MCV MCH RDW Plt Count Lymph % (Auto) [place] % (Auto) Eos % (Auto) Baso % (Auto) Lymph # Baso # Seg Neutrophils % Lymphocytes % (Manual) Monocytes % (Manual) Nucleated RBC % Seg Neutrophils # Seg Neutrophils # Man Monocytes # (Manual) PT INR Activated Clotting Time POC ABG pH POC ABG pCO2 POC ABG pO2 Sodium Potassium Chloride Carbon Dioxide BUN Creatinine Glucose POC Glucose 128 H 113 H 126 H Calcium Magnesium Direct Bilirubin AST ALT Alkaline Phosphatase Total Creatine Kinase CK-MB (CK-2) CK-MB (CK-2) Rel Index Troponin T C-Reactive Protein Total Protein Albumin Triglycerides Ur Specific [place] Urine WBC (Auto) Miscellaneous Test 05/03/17 05/03/17 05/04/17 17:29 23:26 04:55 WBC RBC Hgb Hct MCV MCH RDW Plt Count Lymph % (Auto) [place] % (Auto) Eos % (Auto) Baso % (Auto) Lymph # Baso # Seg Neutrophils % Lymphocytes % (Manual) Monocytes % (Manual) Nucleated RBC % Seg Neutrophils # Seg Neutrophils # Man Monocytes # (Manual) PT INR Activated Clotting Time POC ABG pH POC ABG pCO2 POC ABG pO2 Sodium Potassium Chloride Carbon Dioxide BUN Creatinine Glucose POC Glucose 141 H 129 H 126 H Calcium Magnesium Direct Bilirubin AST ALT Alkaline Phosphatase Total Creatine Kinase CK-MB (CK-2) CK-MB (CK-2) Rel Index Troponin T C-Reactive Protein Total Protein Albumin Triglycerides Ur Specific [place] Urine WBC (Auto) Miscellaneous Test 05/04/17 05/04/17 05/05/17 12:09 17:46 00:06 WBC RBC Hgb Hct MCV MCH RDW Plt Count Lymph % (Auto) [place] % (Auto) Eos % (Auto) Baso % (Auto) Lymph # Baso # Seg Neutrophils % Lymphocytes % (Manual) Monocytes % (Manual) Nucleated RBC % Seg Neutrophils # Seg Neutrophils # Man Monocytes # (Manual) PT INR Activated Clotting Time POC ABG pH POC ABG pCO2 POC ABG pO2 Sodium Potassium Chloride Carbon Dioxide BUN Creatinine Glucose POC Glucose 125 H 125 H 110 H Calcium Magnesium Direct Bilirubin AST ALT Alkaline Phosphatase Total Creatine Kinase CK-MB (CK-2) CK-MB (CK-2) Rel Index Troponin T C-Reactive Protein Total Protein Albumin Triglycerides Ur Specific [place] Urine WBC (Auto) Miscellaneous Test 05/05/17 05/05/17 05/05/17 05:48 11:41 16:19 WBC RBC Hgb Hct MCV MCH RDW Plt Count Lymph % (Auto) [place] % (Auto) Eos % (Auto) Baso % (Auto) Lymph # Baso # Seg Neutrophils % Lymphocytes % (Manual) Monocytes % (Manual) Nucleated RBC % Seg Neutrophils # Seg Neutrophils # Man Monocytes # (Manual) PT INR Activated Clotting Time POC ABG pH POC ABG pCO2 POC ABG pO2 Sodium Potassium Chloride Carbon Dioxide BUN Creatinine Glucose POC Glucose 124 H 122 H 120 H Calcium Magnesium Direct Bilirubin AST ALT Alkaline Phosphatase Total Creatine Kinase CK-MB (CK-2) CK-MB (CK-2) Rel Index Troponin T C-Reactive Protein Total Protein Albumin Triglycerides Ur Specific [place] Urine WBC (Auto) Miscellaneous Test 05/06/17 05/06/17 05/06/17 00:16 05:47 11:42 WBC RBC Hgb Hct MCV MCH RDW Plt Count Lymph % (Auto) [place] % (Auto) Eos % (Auto) Baso % (Auto) Lymph # Baso # Seg Neutrophils % Lymphocytes % (Manual) Monocytes % (Manual) Nucleated RBC % Seg Neutrophils # Seg Neutrophils # Man Monocytes # (Manual) PT INR Activated Clotting Time POC ABG pH POC ABG pCO2 POC ABG pO2 Sodium Potassium Chloride Carbon Dioxide BUN Creatinine Glucose POC Glucose 110 H 142 H 120 H Calcium Magnesium Direct Bilirubin AST ALT Alkaline Phosphatase Total Creatine Kinase CK-MB (CK-2) CK-MB (CK-2) Rel Index Troponin T C-Reactive Protein Total Protein Albumin Triglycerides Ur Specific [place] Urine WBC (Auto) Miscellaneous Test 05/06/17 05/07/17 05/07/17 17:46 00:07 05:28 WBC RBC Hgb Hct MCV MCH RDW Plt Count Lymph % (Auto) [place] % (Auto) Eos % (Auto) Baso % (Auto) Lymph # Baso # Seg Neutrophils % Lymphocytes % (Manual) Monocytes % (Manual) Nucleated RBC % Seg Neutrophils # Seg Neutrophils # Man Monocytes # (Manual) PT INR Activated Clotting Time POC ABG pH POC ABG pCO2 POC ABG pO2 Sodium Potassium Chloride Carbon Dioxide BUN Creatinine Glucose POC Glucose 127 H 145 H 124 H Calcium Magnesium Direct Bilirubin AST ALT Alkaline Phosphatase Total Creatine Kinase CK-MB (CK-2) CK-MB (CK-2) Rel Index Troponin T C-Reactive Protein Total Protein Albumin Triglycerides Ur Specific [place] Urine WBC (Auto) Miscellaneous Test 05/07/17 05/07/17 05/08/17 11:17 17:14 00:03 WBC RBC Hgb Hct MCV MCH RDW Plt Count Lymph % (Auto) [place] % (Auto) Eos % (Auto) Baso % (Auto) Lymph # Baso # Seg Neutrophils % Lymphocytes % (Manual) Monocytes % (Manual) Nucleated RBC % Seg Neutrophils # Seg Neutrophils # Man Monocytes # (Manual) PT INR Activated Clotting Time POC ABG pH POC ABG pCO2 POC ABG pO2 Sodium Potassium Chloride Carbon Dioxide BUN Creatinine Glucose POC Glucose 144 H 125 H 122 H Calcium Magnesium Direct Bilirubin AST ALT Alkaline Phosphatase Total Creatine Kinase CK-MB (CK-2) CK-MB (CK-2) Rel Index Troponin T C-Reactive Protein Total Protein Albumin Triglycerides Ur Specific [place] Urine WBC (Auto) Miscellaneous Test 05/08/17 05/08/17 05/08/17 05:43 12:07 18:02 WBC RBC Hgb Hct MCV MCH RDW Plt Count Lymph % (Auto) [place] % (Auto) Eos % (Auto) Baso % (Auto) Lymph # Baso # Seg Neutrophils % Lymphocytes % (Manual) Monocytes % (Manual) Nucleated RBC % Seg Neutrophils # Seg Neutrophils # Man Monocytes # (Manual) PT INR Activated Clotting Time POC ABG pH POC ABG pCO2 POC ABG pO2 Sodium Potassium Chloride Carbon Dioxide BUN Creatinine Glucose POC Glucose 117 H 114 H 129 H Calcium Magnesium Direct Bilirubin AST ALT Alkaline Phosphatase Total Creatine Kinase CK-MB (CK-2) CK-MB (CK-2) Rel Index Troponin T C-Reactive Protein Total Protein Albumin Triglycerides Ur Specific [place] Urine WBC (Auto) Miscellaneous Test 05/08/17 05/09/17 05/09/17 23:53 04:19 05:14 WBC RBC Hgb Hct MCV MCH RDW Plt Count Lymph % (Auto) [place] % (Auto) Eos % (Auto) Baso % (Auto) Lymph # Baso # Seg Neutrophils % Lymphocytes % (Manual) Monocytes % (Manual) Nucleated RBC % Seg Neutrophils # Seg Neutrophils # Man Monocytes # (Manual) PT INR Activated Clotting Time POC ABG pH 7.524 H POC ABG pCO2 34.7 L POC ABG pO2 107 H Sodium Potassium Chloride Carbon Dioxide BUN Creatinine Glucose POC Glucose 125 H 118 H Calcium Magnesium Direct Bilirubin AST ALT Alkaline Phosphatase Total Creatine Kinase CK-MB (CK-2) CK-MB (CK-2) Rel Index Troponin T C-Reactive Protein Total Protein Albumin Triglycerides Ur Specific [place] Urine WBC (Auto) Miscellaneous Test 05/10/17 05/11/17 05/11/17 23:54 05:48 23:50 WBC RBC Hgb Hct MCV MCH RDW Plt Count Lymph % (Auto) [place] % (Auto) Eos % (Auto) Baso % (Auto) Lymph # Baso # Seg Neutrophils % Lymphocytes % (Manual) Monocytes % (Manual) Nucleated RBC % Seg Neutrophils # Seg Neutrophils # Man Monocytes # (Manual) PT INR Activated Clotting Time POC ABG pH POC ABG pCO2 POC ABG pO2 Sodium Potassium Chloride Carbon Dioxide BUN Creatinine Glucose POC Glucose 126 H 137 H 130 H Calcium Magnesium Direct Bilirubin AST ALT Alkaline Phosphatase Total Creatine Kinase CK-MB (CK-2) CK-MB (CK-2) Rel Index Troponin T C-Reactive Protein Total Protein Albumin Triglycerides Ur Specific [place] Urine WBC (Auto) Miscellaneous Test 05/12/17 05/12/17 05/12/17 05:48 11:33 18:00 WBC RBC Hgb Hct MCV MCH RDW Plt Count Lymph % (Auto) [place] % (Auto) Eos % (Auto) Baso % (Auto) Lymph # Baso # Seg Neutrophils % Lymphocytes % (Manual) Monocytes % (Manual) Nucleated RBC % Seg Neutrophils # Seg Neutrophils # Man Monocytes # (Manual) PT INR Activated Clotting Time POC ABG pH POC ABG pCO2 POC ABG pO2 Sodium Potassium Chloride Carbon Dioxide BUN Creatinine Glucose POC Glucose 126 H 116 H 131 H Calcium Magnesium Direct Bilirubin AST ALT Alkaline Phosphatase Total Creatine Kinase CK-MB (CK-2) CK-MB (CK-2) Rel Index Troponin T C-Reactive Protein Total Protein Albumin Triglycerides Ur Specific [place] Urine WBC (Auto) Miscellaneous Test 05/14/17 05/15/17 05/15/17 11:45 11:27 17:42 WBC RBC Hgb Hct MCV MCH RDW Plt Count Lymph % (Auto) [place] % (Auto) Eos % (Auto) Baso % (Auto) Lymph # Baso # Seg Neutrophils % Lymphocytes % (Manual) Monocytes % (Manual) Nucleated RBC % Seg Neutrophils # Seg Neutrophils # Man Monocytes # (Manual) PT INR Activated Clotting Time POC ABG pH POC ABG pCO2 POC ABG pO2 Sodium Potassium Chloride Carbon Dioxide BUN Creatinine Glucose POC Glucose 123 H 129 H 125 H Calcium Magnesium Direct Bilirubin AST ALT Alkaline Phosphatase Total Creatine Kinase CK-MB (CK-2) CK-MB (CK-2) Rel Index Troponin T C-Reactive Protein Total Protein Albumin Triglycerides Ur Specific [place] Urine WBC (Auto) Miscellaneous Test 05/16/17 05/16/17 05/17/17 00:29 06:50 03:45 WBC RBC Hgb 11.7 L Hct 34.8 L MCV MCH RDW 15.5 H Plt Count Lymph % (Auto) [place] % (Auto) 7.7 H Eos % (Auto) Baso % (Auto) Lymph # Baso # Seg Neutrophils % 73.7 H Lymphocytes % (Manual) Monocytes % (Manual) Nucleated RBC % Seg Neutrophils # Seg Neutrophils # Man Monocytes # (Manual) PT INR Activated Clotting Time POC ABG pH POC ABG pCO2 POC ABG pO2 Sodium Potassium Chloride Carbon Dioxide BUN Creatinine Glucose POC Glucose 141 H 138 H Calcium Magnesium Direct Bilirubin AST ALT Alkaline Phosphatase Total Creatine Kinase CK-MB (CK-2) CK-MB (CK-2) Rel Index Troponin T C-Reactive Protein Total Protein Albumin Triglycerides Ur Specific [place] Urine WBC (Auto) Miscellaneous Test 05/17/17 05/20/17 05/23/17 03:45 17:31 23:09 WBC RBC Hgb Hct MCV MCH RDW Plt Count Lymph % (Auto) [place] % (Auto) Eos % (Auto) Baso % (Auto) Lymph # Baso # Seg Neutrophils % Lymphocytes % (Manual) Monocytes % (Manual) Nucleated RBC % Seg Neutrophils # Seg Neutrophils # Man Monocytes # (Manual) PT INR Activated Clotting Time POC ABG pH POC ABG pCO2 POC ABG pO2 Sodium Potassium Chloride Carbon Dioxide BUN Creatinine 0.2 L Glucose 131 H POC Glucose 116 H 122 H Calcium Magnesium Direct Bilirubin AST ALT Alkaline Phosphatase Total Creatine Kinase CK-MB (CK-2) CK-MB (CK-2) Rel Index Troponin T C-Reactive Protein Total Protein Albumin Triglycerides Ur Specific [place] Urine WBC (Auto) Miscellaneous Test 05/24/17 05/26/17 05/27/17 05:37 05:23 01:16 WBC RBC Hgb Hct MCV MCH RDW Plt Count Lymph % (Auto) [place] % (Auto) Eos % (Auto) Baso % (Auto) Lymph # Baso # Seg Neutrophils % Lymphocytes % (Manual) Monocytes % (Manual) Nucleated RBC % Seg Neutrophils # Seg Neutrophils # Man Monocytes # (Manual) PT INR Activated Clotting Time POC ABG pH POC ABG pCO2 POC ABG pO2 Sodium Potassium Chloride Carbon Dioxide BUN Creatinine Glucose POC Glucose 139 H 108 H 126 H Calcium Magnesium Direct Bilirubin AST ALT Alkaline Phosphatase Total Creatine Kinase CK-MB (CK-2) CK-MB (CK-2) Rel Index Troponin T C-Reactive Protein Total Protein Albumin Triglycerides Ur Specific [place] Urine WBC (Auto) Miscellaneous Test 05/27/17 05/27/17 05/29/17 05:33 21:49 04:37 WBC RBC Hgb Hct MCV MCH RDW 15.5 H Plt Count Lymph % (Auto) [place] % (Auto) Eos % (Auto) Baso % (Auto) Lymph # Baso # Seg Neutrophils % Lymphocytes % (Manual) Monocytes % (Manual) Nucleated RBC % Seg Neutrophils # Seg Neutrophils # Man Monocytes # (Manual) PT INR Activated Clotting Time POC ABG pH POC ABG pCO2 POC ABG pO2 Sodium Potassium Chloride Carbon Dioxide BUN Creatinine Glucose POC Glucose 129 H 110 H Calcium Magnesium Direct Bilirubin AST ALT Alkaline Phosphatase Total Creatine Kinase CK-MB (CK-2) CK-MB (CK-2) Rel Index Troponin T C-Reactive Protein Total Protein Albumin Triglycerides Ur Specific [place] Urine WBC (Auto) Miscellaneous Test 05/29/17 06/01/17 04:37 05:28 WBC RBC Hgb Hct MCV MCH RDW Plt Count Lymph % (Auto) [place] % (Auto) Eos % (Auto) Baso % (Auto) Lymph # Baso # Seg Neutrophils % Lymphocytes % (Manual) Monocytes % (Manual) Nucleated RBC % Seg Neutrophils # Seg Neutrophils # Man Monocytes # (Manual) PT INR Activated Clotting Time POC ABG pH POC ABG pCO2 POC ABG pO2 Sodium Potassium Chloride 97.6 L Carbon Dioxide BUN Creatinine 0.2 L Glucose 121 H POC Glucose 133 H Calcium Magnesium Direct Bilirubin AST ALT Alkaline Phosphatase Total Creatine Kinase CK-MB (CK-2) CK-MB (CK-2) Rel Index Troponin T C-Reactive Protein Total Protein Albumin Triglycerides Ur Specific [place] Urine WBC (Auto) Miscellaneous Test
[2017-06-01] MEDS: TRANSDERM-SCOP TD SCH (16:58)
[2017-06-02] MEDS: PLAVIX PO SCH (10:22)
[2017-06-02] MEDS: ASPIRIN PO SCH (10:22)
[2017-06-02] MEDS: LOPRESSOR PO SCH (10:22)
[2017-06-02] MEDS: PROTONIX FEEDTUBE SCH (10:22)
[2017-06-02] MEDS: ELIQUIS PO SCH (10:23)
[2017-06-02] MEDS: CORDARONE PO SCH (10:25)
--- NOTE | 2017-06-02 12:04 | Progress Note ---
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 No new recommendations for today. Patient remains full code and will continue PSV as tolerated with hopes of weaning to T-piece. He continues to have Apnea and fails PSV trials. Family has been made aware of this. 1. PSV as tolerated with a goal to get to T-piece 2. Once tolerates T-piece for 24 hours, can consider transfer to floor, this is highly unlikely. 3. reviewed neurology note and agree with assessment 4. Continue all other cardiac meds 5. Overall prognosis still remains poor given amount of downtime during arrest. 6. Family meeting held, they feel the patient will overcome this current state as they have had other family members do the same. Very in depth conversation about the prognosis and current clinical state. I've made my best attempt to help them understand. Neuro agrees. Will continue supportive measures and attempt to wean. CCT 31 minutes. Subjective Date of service: 06/02/17 Principal diagnosis: coma,ARV,s/p arrest Interval history: No acute events. Mental state unchanged. Objective Vital Signs - 12hr 06/02/17 06/02/17 06/02/17 00:05 01:00 02:00 Temperature Pulse Rate 81 81 77 Pulse Rate [ From Monitor] Respiratory 13 24 20 Rate Blood Pressure 119/71 117/73 117/78 O2 Sat by Pulse 98 96 97 Oximetry O2 Sat by Pulse Oximetry [ Assessment] 06/02/17 06/02/17 06/02/17 03:00 04:00 04:17 Temperature 97.7 F Pulse Rate 74 78 Pulse Rate [ 72 From Monitor] Respiratory 19 15 Rate Blood Pressure 115/79 107/65 O2 Sat by Pulse 97 99 Oximetry O2 Sat by Pulse 99 Oximetry [ Assessment] 06/02/17 06/02/17 06/02/17 05:00 06:00 08:00 Temperature Pulse Rate 73 74 Pulse Rate [ 76 From Monitor] Respiratory 16 12 Rate Blood Pressure 115/76 108/69 O2 Sat by Pulse 98 Oximetry O2 Sat by Pulse Oximetry [ Assessment] 06/02/17 06/02/17 06/02/17 08:24 08:31 09:02 Temperature Pulse Rate 74 74 Pulse Rate [ From Monitor] Respiratory 13 Rate Blood Pressure 108/69 108/70 O2 Sat by Pulse 99 97 Oximetry O2 Sat by Pulse 99 Oximetry [ Assessment] Constitutional: no acute distress, comatose Eyes: non-icteric ENT: oropharynx moist Neck: supple, other (tracheotomy ) Effort: normal Ascultation: Bilateral: clear, diminished breath sounds, other (coarse BS bilaterally) Percussion: Bilateral: not dull Cardiovascular: regular rate and rhythm Gastrointestinal: normoactive bowel sounds, soft, non-tender, non-distended Integumentary: normal Extremities: no cyanosis, no edema, pink and warm Neurologic: other (nonresponsive with flaccid extremities) Psychiatric: other (eyes open spontaneously but does not follow any voice commands, otherwise nonresponsive except for pain) CBC and BMP: 05/29/17 04:37 05/29/17 04:37 ABG, PT/INR, D-dimer: ABG POC ABG pH 7.524 (7.35-7.45) H 05/09/17 04:19 POC ABG pCO2 34.7 (35-45) L 05/09/17 04:19 POC ABG pO2 107 (80-105) H 05/09/17 04:19 POC ABG HCO3 28.6 05/09/17 04:19 POC ABG Total CO2 30 05/09/17 04:19 POC ABG O2 Sat 99 05/09/17 04:19 PT/INR, D-dimer PT 14.9 Sec. (12.2-14.9) 04/10/17 04:16 INR 1.11 (0.87-1.13) 04/10/17 04:16 Abnormal lab findings: Abnormal Labs 03/29/17 03/29/17 03/29/17 11:35 11:35 11:40 WBC RBC Hgb Hct MCV 98 H MCH 33 H RDW Plt Count Lymph % (Auto) [place] % (Auto) Eos % (Auto) Baso % (Auto) Lymph # Baso # Seg Neutrophils % Lymphocytes % (Manual) Monocytes % (Manual) 9.0 H Nucleated RBC % 1.0 H Seg Neutrophils # Seg Neutrophils # Man Monocytes # (Manual) 0.9 H PT 15.8 H INR 1.20 H Activated Clotting Time POC ABG pH POC ABG pCO2 POC ABG pO2 Sodium Potassium 2.7 L* Chloride 95.3 L Carbon Dioxide 17 L BUN Creatinine Glucose 435 H POC Glucose Calcium Magnesium Direct Bilirubin AST ALT Alkaline Phosphatase Total Creatine Kinase CK-MB (CK-2) CK-MB (CK-2) Rel Index Troponin T C-Reactive Protein Total Protein 6.1 L Albumin 3.5 L Triglycerides Ur Specific [place] Urine WBC (Auto) Miscellaneous Test 03/29/17 03/29/17 03/29/17 12:34 13:10 13:25 WBC RBC Hgb Hct MCV MCH RDW Plt Count Lymph % (Auto) [place] % (Auto) Eos % (Auto) Baso % (Auto) Lymph # Baso # Seg Neutrophils % Lymphocytes % (Manual) Monocytes % (Manual) Nucleated RBC % Seg Neutrophils # Seg Neutrophils # Man Monocytes # (Manual) PT INR Activated Clotting Time 142 H 169 H 175 H POC ABG pH POC ABG pCO2 POC ABG pO2 Sodium Potassium Chloride Carbon Dioxide BUN Creatinine Glucose POC Glucose Calcium Magnesium Direct Bilirubin AST ALT Alkaline Phosphatase Total Creatine Kinase CK-MB (CK-2) CK-MB (CK-2) Rel Index Troponin T C-Reactive Protein Total Protein Albumin Triglycerides Ur Specific [place] Urine WBC (Auto) Miscellaneous Test 03/29/17 03/29/17 03/29/17 14:50 15:18 19:52 WBC RBC Hgb Hct MCV MCH RDW Plt Count Lymph % (Auto) [place] % (Auto) Eos % (Auto) Baso % (Auto) Lymph # Baso # Seg Neutrophils % Lymphocytes % (Manual) Monocytes % (Manual) Nucleated RBC % Seg Neutrophils # Seg Neutrophils # Man Monocytes # (Manual) PT INR Activated Clotting Time 175 H POC ABG pH 7.293 L POC ABG pCO2 POC ABG pO2 602 H Sodium Potassium Chloride Carbon Dioxide BUN Creatinine Glucose POC Glucose Calcium Magnesium Direct Bilirubin AST ALT Alkaline Phosphatase Total Creatine Kinase 7263 H CK-MB (CK-2) > 300.0 H CK-MB (CK-2) Rel Index 4.1 H Troponin T 8.080 H* D C-Reactive Protein Total Protein Albumin Triglycerides 195 H Ur Specific [place] Urine WBC (Auto) Miscellaneous Test 03/30/17 03/30/17 03/30/17 03:50 03:50 06:19 WBC 19.5 H RBC Hgb Hct MCV MCH RDW Plt Count Lymph % (Auto) [place] % (Auto) Eos % (Auto) Baso % (Auto) Lymph # Baso # Seg Neutrophils % Lymphocytes % (Manual) 7.0 L Monocytes % (Manual) Nucleated RBC % Seg Neutrophils # Seg Neutrophils # Man 12.7 H Monocytes # (Manual) 1.4 H PT INR Activated Clotting Time POC ABG pH POC ABG pCO2 28.2 L POC ABG pO2 108 H Sodium Potassium Chloride 108.9 H Carbon Dioxide 15 L BUN 25 H Creatinine Glucose 158 H POC Glucose Calcium 8.1 L Magnesium Direct Bilirubin AST ALT Alkaline Phosphatase Total Creatine Kinase 7963 H CK-MB (CK-2) > 300.0 H CK-MB (CK-2) Rel Index Troponin T 6.850 H* C-Reactive Protein Total Protein Albumin Triglycerides Ur Specific [place] Urine WBC (Auto) Miscellaneous Test 03/30/17 03/30/17 03/31/17 09:45 16:04 02:19 WBC RBC Hgb Hct MCV MCH RDW Plt Count Lymph % (Auto) [place] % (Auto) Eos % (Auto) Baso % (Auto) Lymph # Baso # Seg Neutrophils % Lymphocytes % (Manual) Monocytes % (Manual) Nucleated RBC % Seg Neutrophils # Seg Neutrophils # Man Monocytes # (Manual) PT INR Activated Clotting Time POC ABG pH POC ABG pCO2 POC ABG pO2 Sodium Potassium Chloride Carbon Dioxide BUN Creatinine Glucose POC Glucose 137 H Calcium Magnesium Direct Bilirubin AST ALT Alkaline Phosphatase Total Creatine Kinase CK-MB (CK-2) CK-MB (CK-2) Rel Index Troponin T C-Reactive Protein 21.80 H Total Protein Albumin Triglycerides Ur Specific [place] 1.031 H Urine WBC (Auto) Miscellaneous Test 03/31/17 03/31/17 03/31/17 03:57 06:54 09:22 WBC RBC Hgb Hct MCV MCH RDW Plt Count Lymph % (Auto) [place] % (Auto) Eos % (Auto) Baso % (Auto) Lymph # Baso # Seg Neutrophils % Lymphocytes % (Manual) Monocytes % (Manual) Nucleated RBC % Seg Neutrophils # Seg Neutrophils # Man Monocytes # (Manual) PT INR Activated Clotting Time POC ABG pH 7.475 H POC ABG pCO2 25.4 L POC ABG pO2 62 L Sodium Potassium Chloride Carbon Dioxide 19 L BUN 22 H Creatinine 0.6 L Glucose 148 H POC Glucose 143 H Calcium 8.3 L Magnesium Direct Bilirubin AST ALT Alkaline Phosphatase Total Creatine Kinase CK-MB (CK-2) CK-MB (CK-2) Rel Index Troponin T C-Reactive Protein Total Protein Albumin Triglycerides Ur Specific [place] Urine WBC (Auto) Miscellaneous Test 03/31/17 03/31/17 03/31/17 11:40 17:47 23:38 WBC RBC Hgb Hct MCV MCH RDW Plt Count Lymph % (Auto) [place] % (Auto) Eos % (Auto) Baso % (Auto) Lymph # Baso # Seg Neutrophils % Lymphocytes % (Manual) Monocytes % (Manual) Nucleated RBC % Seg Neutrophils # Seg Neutrophils # Man Monocytes # (Manual) PT INR Activated Clotting Time POC ABG pH POC ABG pCO2 POC ABG pO2 Sodium Potassium Chloride Carbon Dioxide BUN Creatinine Glucose POC Glucose 127 H 137 H 148 H Calcium Magnesium Direct Bilirubin AST ALT Alkaline Phosphatase Total Creatine Kinase CK-MB (CK-2) CK-MB (CK-2) Rel Index Troponin T C-Reactive Protein Total Protein Albumin Triglycerides Ur Specific [place] Urine WBC (Auto) Miscellaneous Test 04/01/17 04/01/17 04/01/17 04:29 05:01 11:54 WBC RBC Hgb Hct MCV MCH RDW Plt Count Lymph % (Auto) [place] % (Auto) Eos % (Auto) Baso % (Auto) Lymph # Baso # Seg Neutrophils % Lymphocytes % (Manual) Monocytes % (Manual) Nucleated RBC % Seg Neutrophils # Seg Neutrophils # Man Monocytes # (Manual) PT INR Activated Clotting Time POC ABG pH 7.513 H POC ABG pCO2 22.1 L POC ABG pO2 64 L Sodium Potassium Chloride Carbon Dioxide BUN Creatinine Glucose POC Glucose 121 H Calcium Magnesium Direct Bilirubin AST ALT Alkaline Phosphatase Total Creatine Kinase CK-MB (CK-2) CK-MB (CK-2) Rel Index Troponin T C-Reactive Protein Total Protein Albumin Triglycerides 151 H Ur Specific [place] Urine WBC (Auto) Miscellaneous Test 04/01/17 04/02/17 04/02/17 18:17 00:11 04:52 WBC RBC Hgb Hct MCV MCH RDW Plt Count Lymph % (Auto) [place] % (Auto) Eos % (Auto) Baso % (Auto) Lymph # Baso # Seg Neutrophils % Lymphocytes % (Manual) Monocytes % (Manual) Nucleated RBC % Seg Neutrophils # Seg Neutrophils # Man Monocytes # (Manual) PT INR Activated Clotting Time POC ABG pH 7.524 H POC ABG pCO2 25.5 L POC ABG pO2 66 L Sodium Potassium Chloride Carbon Dioxide BUN Creatinine Glucose POC Glucose 117 H 122 H Calcium Magnesium Direct Bilirubin AST ALT Alkaline Phosphatase Total Creatine Kinase CK-MB (CK-2) CK-MB (CK-2) Rel Index Troponin T C-Reactive Protein Total Protein Albumin Triglycerides Ur Specific [place] Urine WBC (Auto) Miscellaneous Test 04/02/17 04/02/17 04/02/17 05:18 10:41 12:19 WBC RBC Hgb Hct MCV MCH RDW Plt Count Lymph % (Auto) [place] % (Auto) Eos % (Auto) Baso % (Auto) Lymph # Baso # Seg Neutrophils % Lymphocytes % (Manual) Monocytes % (Manual) Nucleated RBC % Seg Neutrophils # Seg Neutrophils # Man Monocytes # (Manual) PT INR Activated Clotting Time POC ABG pH 7.534 H POC ABG pCO2 27.4 L POC ABG pO2 Sodium Potassium Chloride Carbon Dioxide BUN Creatinine Glucose POC Glucose 132 H 129 H Calcium Magnesium Direct Bilirubin AST ALT Alkaline Phosphatase Total Creatine Kinase CK-MB (CK-2) CK-MB (CK-2) Rel Index Troponin T C-Reactive Protein Total Protein Albumin Triglycerides Ur Specific [place] Urine WBC (Auto) Miscellaneous Test 04/02/17 04/03/17 04/03/17 18:05 00:08 05:09 WBC RBC Hgb Hct MCV MCH RDW Plt Count Lymph % (Auto) [place] % (Auto) Eos % (Auto) Baso % (Auto) Lymph # Baso # Seg Neutrophils % Lymphocytes % (Manual) Monocytes % (Manual) Nucleated RBC % Seg Neutrophils # Seg Neutrophils # Man Monocytes # (Manual) PT INR Activated Clotting Time POC ABG pH 7.455 H POC ABG pCO2 33.2 L POC ABG pO2 120 H Sodium Potassium Chloride Carbon Dioxide BUN Creatinine Glucose POC Glucose 136 H 128 H Calcium Magnesium Direct Bilirubin AST ALT Alkaline Phosphatase Total Creatine Kinase CK-MB (CK-2) CK-MB (CK-2) Rel Index Troponin T C-Reactive Protein Total Protein Albumin Triglycerides Ur Specific [place] Urine WBC (Auto) Miscellaneous Test 04/03/17 04/03/17 04/03/17 06:32 11:54 12:16 WBC 11.9 H RBC Hgb Hct MCV MCH RDW Plt Count 125 L Lymph % (Auto) 4.8 L [place] % (Auto) Eos % (Auto) Baso % (Auto) Lymph # 0.6 L Baso # Seg Neutrophils % 86.7 H Lymphocytes % (Manual) Monocytes % (Manual) Nucleated RBC % Seg Neutrophils # 10.3 H Seg Neutrophils # Man Monocytes # (Manual) PT INR Activated Clotting Time POC ABG pH POC ABG pCO2 POC ABG pO2 Sodium Potassium Chloride Carbon Dioxide BUN Creatinine Glucose POC Glucose 138 H 143 H Calcium Magnesium Direct Bilirubin AST ALT Alkaline Phosphatase Total Creatine Kinase CK-MB (CK-2) CK-MB (CK-2) Rel Index Troponin T C-Reactive Protein Total Protein Albumin Triglycerides Ur Specific [place] Urine WBC (Auto) Miscellaneous Test 04/03/17 04/03/17 04/04/17 17:33 23:59 04:34 WBC RBC Hgb Hct MCV MCH RDW Plt Count Lymph % (Auto) [place] % (Auto) Eos % (Auto) Baso % (Auto) Lymph # Baso # Seg Neutrophils % Lymphocytes % (Manual) Monocytes % (Manual) Nucleated RBC % Seg Neutrophils # Seg Neutrophils # Man Monocytes # (Manual) PT INR Activated Clotting Time POC ABG pH 7.457 H POC ABG pCO2 29.8 L POC ABG pO2 76 L Sodium Potassium Chloride Carbon Dioxide BUN Creatinine Glucose POC Glucose 130 H 155 H Calcium Magnesium Direct Bilirubin AST ALT Alkaline Phosphatase Total Creatine Kinase CK-MB (CK-2) CK-MB (CK-2) Rel Index Troponin T C-Reactive Protein Total Protein Albumin Triglycerides Ur Specific [place] Urine WBC (Auto) Miscellaneous Test 04/04/17 04/04/17 04/04/17 05:27 12:22 18:18 WBC RBC Hgb Hct MCV MCH RDW Plt Count Lymph % (Auto) [place] % (Auto) Eos % (Auto) Baso % (Auto) Lymph # Baso # Seg Neutrophils % Lymphocytes % (Manual) Monocytes % (Manual) Nucleated RBC % Seg Neutrophils # Seg Neutrophils # Man Monocytes # (Manual) PT INR Activated Clotting Time POC ABG pH POC ABG pCO2 POC ABG pO2 Sodium Potassium Chloride Carbon Dioxide BUN Creatinine Glucose POC Glucose 164 H 146 H 130 H Calcium Magnesium Direct Bilirubin AST ALT Alkaline Phosphatase Total Creatine Kinase CK-MB (CK-2) CK-MB (CK-2) Rel Index Troponin T C-Reactive Protein Total Protein Albumin Triglycerides Ur Specific [place] Urine WBC (Auto) Miscellaneous Test 04/05/17 04/05/17 04/05/17 04:43 05:28 11:36 WBC RBC Hgb Hct MCV MCH RDW Plt Count Lymph % (Auto) [place] % (Auto) Eos % (Auto) Baso % (Auto) Lymph # Baso # Seg Neutrophils % Lymphocytes % (Manual) Monocytes % (Manual) Nucleated RBC % Seg Neutrophils # Seg Neutrophils # Man Monocytes # (Manual) PT INR Activated Clotting Time POC ABG pH 7.479 H POC ABG pCO2 33.5 L POC ABG pO2 76 L Sodium Potassium Chloride Carbon Dioxide BUN Creatinine Glucose POC Glucose 145 H 136 H Calcium Magnesium Direct Bilirubin AST ALT Alkaline Phosphatase Total Creatine Kinase CK-MB (CK-2) CK-MB (CK-2) Rel Index Troponin T C-Reactive Protein Total Protein Albumin Triglycerides Ur Specific [place] Urine WBC (Auto) Miscellaneous Test 04/05/17 04/06/17 04/06/17 17:58 00:16 05:26 WBC RBC Hgb Hct MCV MCH RDW Plt Count Lymph % (Auto) [place] % (Auto) Eos % (Auto) Baso % (Auto) Lymph # Baso # Seg Neutrophils % Lymphocytes % (Manual) Monocytes % (Manual) Nucleated RBC % Seg Neutrophils # Seg Neutrophils # Man Monocytes # (Manual) PT INR Activated Clotting Time POC ABG pH POC ABG pCO2 POC ABG pO2 Sodium Potassium Chloride Carbon Dioxide BUN Creatinine Glucose POC Glucose 130 H 159 H 146 H Calcium Magnesium Direct Bilirubin AST ALT Alkaline Phosphatase Total Creatine Kinase CK-MB (CK-2) CK-MB (CK-2) Rel Index Troponin T C-Reactive Protein Total Protein Albumin Triglycerides Ur Specific [place] Urine WBC (Auto) Miscellaneous Test 04/06/17 04/06/17 04/07/17 13:11 16:54 11:45 WBC RBC Hgb Hct MCV MCH RDW Plt Count Lymph % (Auto) [place] % (Auto) Eos % (Auto) Baso % (Auto) Lymph # Baso # Seg Neutrophils % Lymphocytes % (Manual) Monocytes % (Manual) Nucleated RBC % Seg Neutrophils # Seg Neutrophils # Man Monocytes # (Manual) PT INR Activated Clotting Time POC ABG pH 7.517 H POC ABG pCO2 32.1 L POC ABG pO2 Sodium Potassium Chloride Carbon Dioxide BUN Creatinine Glucose POC Glucose 132 H 123 H Calcium Magnesium Direct Bilirubin AST ALT Alkaline Phosphatase Total Creatine Kinase CK-MB (CK-2) CK-MB (CK-2) Rel Index Troponin T C-Reactive Protein Total Protein Albumin Triglycerides Ur Specific [place] Urine WBC (Auto) Miscellaneous Test 04/07/17 04/07/17 04/07/17 12:51 17:40 23:55 WBC RBC Hgb Hct MCV MCH RDW Plt Count Lymph % (Auto) [place] % (Auto) Eos % (Auto) Baso % (Auto) Lymph # Baso # Seg Neutrophils % Lymphocytes % (Manual) Monocytes % (Manual) Nucleated RBC % Seg Neutrophils # Seg Neutrophils # Man Monocytes # (Manual) PT INR Activated Clotting Time POC ABG pH POC ABG pCO2 POC ABG pO2 Sodium Potassium Chloride Carbon Dioxide BUN Creatinine Glucose POC Glucose 138 H 154 H 143 H Calcium Magnesium Direct Bilirubin AST ALT Alkaline Phosphatase Total Creatine Kinase CK-MB (CK-2) CK-MB (CK-2) Rel Index Troponin T C-Reactive Protein Total Protein Albumin Triglycerides Ur Specific [place] Urine WBC (Auto) Miscellaneous Test 04/08/17 04/08/17 04/08/17 05:27 11:14 17:44 WBC RBC Hgb Hct MCV MCH RDW Plt Count Lymph % (Auto) [place] % (Auto) Eos % (Auto) Baso % (Auto) Lymph # Baso # Seg Neutrophils % Lymphocytes % (Manual) Monocytes % (Manual) Nucleated RBC % Seg Neutrophils # Seg Neutrophils # Man Monocytes # (Manual) PT INR Activated Clotting Time POC ABG pH POC ABG pCO2 POC ABG pO2 Sodium Potassium Chloride Carbon Dioxide BUN Creatinine Glucose POC Glucose 142 H 153 H 129 H Calcium Magnesium Direct Bilirubin AST ALT Alkaline Phosphatase Total Creatine Kinase CK-MB (CK-2) CK-MB (CK-2) Rel Index Troponin T C-Reactive Protein Total Protein Albumin Triglycerides Ur Specific [place] Urine WBC (Auto) Miscellaneous Test 04/09/17 04/09/17 04/09/17 08:20 11:21 17:37 WBC RBC Hgb Hct MCV MCH RDW Plt Count Lymph % (Auto) [place] % (Auto) Eos % (Auto) Baso % (Auto) Lymph # Baso # Seg Neutrophils % Lymphocytes % (Manual) Monocytes % (Manual) Nucleated RBC % Seg Neutrophils # Seg Neutrophils # Man Monocytes # (Manual) PT INR Activated Clotting Time POC ABG pH POC ABG pCO2 POC ABG pO2 Sodium 147 H Potassium Chloride 108.8 H Carbon Dioxide BUN 39 H Creatinine 0.5 L Glucose 138 H POC Glucose 152 H 109 H Calcium Magnesium Direct Bilirubin AST ALT Alkaline Phosphatase Total Creatine Kinase CK-MB (CK-2) CK-MB (CK-2) Rel Index Troponin T C-Reactive Protein Total Protein Albumin Triglycerides Ur Specific [place] Urine WBC (Auto) Miscellaneous Test 04/10/17 04/10/17 04/10/17 00:13 04:16 04:16 WBC RBC Hgb 11.5 L Hct MCV 96 H MCH RDW Plt Count 103 L Lymph % (Auto) 11.1 L [place] % (Auto) Eos % (Auto) Baso % (Auto) Lymph # Baso # Seg Neutrophils % 81.5 H Lymphocytes % (Manual) Monocytes % (Manual) Nucleated RBC % Seg Neutrophils # 8.8 H Seg Neutrophils # Man Monocytes # (Manual) PT INR Activated Clotting Time POC ABG pH POC ABG pCO2 POC ABG pO2 Sodium 148 H Potassium Chloride 109.0 H Carbon Dioxide BUN 36 H Creatinine 0.5 L Glucose 131 H POC Glucose 127 H Calcium 8.1 L Magnesium 2.40 H Direct Bilirubin AST 206 H ALT 228 H Alkaline Phosphatase 178 H Total Creatine Kinase CK-MB (CK-2) CK-MB (CK-2) Rel Index Troponin T C-Reactive Protein Total Protein Albumin 2.8 L Triglycerides Ur Specific [place] Urine WBC (Auto) Miscellaneous Test 04/10/17 04/10/17 04/10/17 06:01 11:57 18:27 WBC RBC Hgb Hct MCV MCH RDW Plt Count Lymph % (Auto) [place] % (Auto) Eos % (Auto) Baso % (Auto) Lymph # Baso # Seg Neutrophils % Lymphocytes % (Manual) Monocytes % (Manual) Nucleated RBC % Seg Neutrophils # Seg Neutrophils # Man Monocytes # (Manual) PT INR Activated Clotting Time POC ABG pH POC ABG pCO2 POC ABG pO2 Sodium Potassium Chloride Carbon Dioxide BUN Creatinine Glucose POC Glucose 108 H 154 H 130 H Calcium Magnesium Direct Bilirubin AST ALT Alkaline Phosphatase Total Creatine Kinase CK-MB (CK-2) CK-MB (CK-2) Rel Index Troponin T C-Reactive Protein Total Protein Albumin Triglycerides Ur Specific [place] Urine WBC (Auto) Miscellaneous Test 04/11/17 04/11/17 04/12/17 12:25 17:10 00:22 WBC RBC Hgb Hct MCV MCH RDW Plt Count Lymph % (Auto) [place] % (Auto) Eos % (Auto) Baso % (Auto) Lymph # Baso # Seg Neutrophils % Lymphocytes % (Manual) Monocytes % (Manual) Nucleated RBC % Seg Neutrophils # Seg Neutrophils # Man Monocytes # (Manual) PT INR Activated Clotting Time POC ABG pH POC ABG pCO2 POC ABG pO2 Sodium Potassium Chloride Carbon Dioxide BUN Creatinine Glucose POC Glucose 107 H 129 H 128 H Calcium Magnesium Direct Bilirubin AST ALT Alkaline Phosphatase Total Creatine Kinase CK-MB (CK-2) CK-MB (CK-2) Rel Index Troponin T C-Reactive Protein Total Protein Albumin Triglycerides Ur Specific [place] Urine WBC (Auto) Miscellaneous Test 04/12/17 04/12/17 04/12/17 05:00 11:57 17:47 WBC RBC Hgb Hct MCV MCH RDW Plt Count Lymph % (Auto) [place] % (Auto) Eos % (Auto) Baso % (Auto) Lymph # Baso # Seg Neutrophils % Lymphocytes % (Manual) Monocytes % (Manual) Nucleated RBC % Seg Neutrophils # Seg Neutrophils # Man Monocytes # (Manual) PT INR Activated Clotting Time POC ABG pH POC ABG pCO2 POC ABG pO2 Sodium Potassium Chloride Carbon Dioxide BUN Creatinine Glucose POC Glucose 140 H 142 H Calcium Magnesium Direct Bilirubin AST 158 H ALT 184 H Alkaline Phosphatase 170 H Total Creatine Kinase CK-MB (CK-2) CK-MB (CK-2) Rel Index Troponin T C-Reactive Protein Total Protein Albumin 2.8 L Triglycerides Ur Specific [place] Urine WBC (Auto) Miscellaneous Test 04/12/17 04/12/17 04/13/17 21:36 21:36 01:37 WBC RBC Hgb Hct MCV MCH RDW Plt Count Lymph % (Auto) [place] % (Auto) Eos % (Auto) Baso % (Auto) Lymph # Baso # Seg Neutrophils % Lymphocytes % (Manual) Monocytes % (Manual) Nucleated RBC % Seg Neutrophils # Seg Neutrophils # Man Monocytes # (Manual) PT INR Activated Clotting Time POC ABG pH POC ABG pCO2 POC ABG pO2 Sodium Potassium Chloride Carbon Dioxide BUN Creatinine Glucose POC Glucose 126 H Calcium Magnesium Direct Bilirubin AST ALT Alkaline Phosphatase Total Creatine Kinase 1404 H CK-MB (CK-2) 8.0 H CK-MB (CK-2) Rel Index Troponin T 0.767 H* C-Reactive Protein Total Protein Albumin Triglycerides Ur Specific [place] Urine WBC (Auto) Miscellaneous Test 04/13/17 04/13/17 04/13/17 04:45 04:52 12:17 WBC RBC Hgb Hct MCV MCH RDW Plt Count Lymph % (Auto) [place] % (Auto) Eos % (Auto) Baso % (Auto) Lymph # Baso # Seg Neutrophils % Lymphocytes % (Manual) Monocytes % (Manual) Nucleated RBC % Seg Neutrophils # Seg Neutrophils # Man Monocytes # (Manual) PT INR Activated Clotting Time POC ABG pH POC ABG pCO2 POC ABG pO2 Sodium 148 H Potassium Chloride 112.8 H Carbon Dioxide BUN 33 H Creatinine 0.4 L Glucose 121 H POC Glucose 126 H 149 H Calcium Magnesium Direct Bilirubin AST 160 H ALT 189 H Alkaline Phosphatase 166 H Total Creatine Kinase CK-MB (CK-2) CK-MB (CK-2) Rel Index Troponin T C-Reactive Protein Total Protein Albumin 2.6 L Triglycerides Ur Specific [place] Urine WBC (Auto) Miscellaneous Test 04/13/17 04/14/17 04/14/17 17:45 00:20 00:45 WBC RBC Hgb Hct MCV MCH RDW Plt Count Lymph % (Auto) [place] % (Auto) Eos % (Auto) Baso % (Auto) Lymph # Baso # Seg Neutrophils % Lymphocytes % (Manual) Monocytes % (Manual) Nucleated RBC % Seg Neutrophils # Seg Neutrophils # Man Monocytes # (Manual) PT INR Activated Clotting Time POC ABG pH POC ABG pCO2 POC ABG pO2 Sodium Potassium Chloride Carbon Dioxide BUN Creatinine Glucose POC Glucose 130 H 144 H 144 H Calcium Magnesium Direct Bilirubin AST ALT Alkaline Phosphatase Total Creatine Kinase CK-MB (CK-2) CK-MB (CK-2) Rel Index Troponin T C-Reactive Protein Total Protein Albumin Triglycerides Ur Specific [place] Urine WBC (Auto) Miscellaneous Test 04/14/17 04/14/17 04/14/17 05:40 11:06 11:31 WBC RBC Hgb Hct MCV MCH RDW Plt Count Lymph % (Auto) [place] % (Auto) Eos % (Auto) Baso % (Auto) Lymph # Baso # Seg Neutrophils % Lymphocytes % (Manual) Monocytes % (Manual) Nucleated RBC % Seg Neutrophils # Seg Neutrophils # Man Monocytes # (Manual) PT INR Activated Clotting Time POC ABG pH POC ABG pCO2 POC ABG pO2 Sodium Potassium Chloride Carbon Dioxide BUN Creatinine Glucose POC Glucose 139 H 123 H Calcium Magnesium Direct Bilirubin AST ALT Alkaline Phosphatase Total Creatine Kinase CK-MB (CK-2) CK-MB (CK-2) Rel Index Troponin T C-Reactive Protein Total Protein Albumin Triglycerides Ur Specific [place] 1.033 H Urine WBC (Auto) > 182.0 H Miscellaneous Test 04/14/17 04/14/17 04/15/17 18:00 23:52 05:15 WBC 12.5 H RBC 3.38 L Hgb 10.6 L Hct 32.7 L MCV 97 H MCH RDW Plt Count 107 L Lymph % (Auto) 8.7 L [place] % (Auto) Eos % (Auto) Baso % (Auto) Lymph # 1.1 L Baso # Seg Neutrophils % 86.1 H Lymphocytes % (Manual) Monocytes % (Manual) Nucleated RBC % Seg Neutrophils # 10.7 H Seg Neutrophils # Man Monocytes # (Manual) PT INR Activated Clotting Time POC ABG pH POC ABG pCO2 POC ABG pO2 Sodium Potassium Chloride Carbon Dioxide BUN Creatinine Glucose POC Glucose 133 H 133 H Calcium Magnesium Direct Bilirubin AST ALT Alkaline Phosphatase Total Creatine Kinase CK-MB (CK-2) CK-MB (CK-2) Rel Index Troponin T C-Reactive Protein Total Protein Albumin Triglycerides Ur Specific [place] Urine WBC (Auto) Miscellaneous Test 04/15/17 04/15/17 04/15/17 05:15 05:25 11:50 WBC RBC Hgb Hct MCV MCH RDW Plt Count Lymph % (Auto) [place] % (Auto) Eos % (Auto) Baso % (Auto) Lymph # Baso # Seg Neutrophils % Lymphocytes % (Manual) Monocytes % (Manual) Nucleated RBC % Seg Neutrophils # Seg Neutrophils # Man Monocytes # (Manual) PT INR Activated Clotting Time POC ABG pH POC ABG pCO2 POC ABG pO2 Sodium 149 H Potassium 3.5 L Chloride 114.1 H Carbon Dioxide 21 L BUN 29 H Creatinine 0.4 L Glucose 128 H POC Glucose 133 H 107 H Calcium 8.3 L Magnesium Direct Bilirubin 0.4 H AST 149 H ALT 182 H Alkaline Phosphatase 143 H Total Creatine Kinase CK-MB (CK-2) CK-MB (CK-2) Rel Index Troponin T C-Reactive Protein Total Protein Albumin 2.5 L Triglycerides Ur Specific [place] Urine WBC (Auto) Miscellaneous Test 04/15/17 04/16/17 04/16/17 16:55 00:02 03:17 WBC RBC 3.39 L Hgb 10.5 L Hct 32.4 L MCV 96 H MCH RDW Plt Count 106 L Lymph % (Auto) 6.7 L [place] % (Auto) Eos % (Auto) Baso % (Auto) Lymph # 0.6 L Baso # Seg Neutrophils % 86.8 H Lymphocytes % (Manual) Monocytes % (Manual) Nucleated RBC % Seg Neutrophils # 8.2 H Seg Neutrophils # Man Monocytes # (Manual) PT INR Activated Clotting Time POC ABG pH POC ABG pCO2 POC ABG pO2 Sodium Potassium Chloride Carbon Dioxide BUN Creatinine Glucose POC Glucose 146 H 148 H Calcium Magnesium Direct Bilirubin AST ALT Alkaline Phosphatase Total Creatine Kinase CK-MB (CK-2) CK-MB (CK-2) Rel Index Troponin T C-Reactive Protein Total Protein Albumin Triglycerides Ur Specific [place] Urine WBC (Auto) Miscellaneous Test 04/16/17 04/16/17 04/16/17 03:17 05:19 11:13 WBC RBC Hgb Hct MCV MCH RDW Plt Count Lymph % (Auto) [place] % (Auto) Eos % (Auto) Baso % (Auto) Lymph # Baso # Seg Neutrophils % Lymphocytes % (Manual) Monocytes % (Manual) Nucleated RBC % Seg Neutrophils # Seg Neutrophils # Man Monocytes # (Manual) PT INR Activated Clotting Time POC ABG pH POC ABG pCO2 POC ABG pO2 Sodium 149 H Potassium Chloride 111.1 H Carbon Dioxide 20 L BUN 27 H Creatinine 0.3 L Glucose 156 H POC Glucose 171 H 169 H Calcium 8.3 L Magnesium Direct Bilirubin AST ALT Alkaline Phosphatase Total Creatine Kinase CK-MB (CK-2) CK-MB (CK-2) Rel Index Troponin T C-Reactive Protein Total Protein Albumin Triglycerides Ur Specific [place] Urine WBC (Auto) Miscellaneous Test 04/16/17 04/17/17 04/17/17 17:03 00:00 05:09 WBC RBC Hgb Hct MCV MCH RDW Plt Count Lymph % (Auto) [place] % (Auto) Eos % (Auto) Baso % (Auto) Lymph # Baso # Seg Neutrophils % Lymphocytes % (Manual) Monocytes % (Manual) Nucleated RBC % Seg Neutrophils # Seg Neutrophils # Man Monocytes # (Manual) PT INR Activated Clotting Time POC ABG pH POC ABG pCO2 POC ABG pO2 Sodium Potassium Chloride Carbon Dioxide BUN Creatinine Glucose POC Glucose 151 H 165 H 145 H Calcium Magnesium Direct Bilirubin AST ALT Alkaline Phosphatase Total Creatine Kinase CK-MB (CK-2) CK-MB (CK-2) Rel Index Troponin T C-Reactive Protein Total Protein Albumin Triglycerides Ur Specific [place] Urine WBC (Auto) Miscellaneous Test 04/17/17 04/17/17 04/18/17 11:38 17:47 00:01 WBC RBC Hgb Hct MCV MCH RDW Plt Count Lymph % (Auto) [place] % (Auto) Eos % (Auto) Baso % (Auto) Lymph # Baso # Seg Neutrophils % Lymphocytes % (Manual) Monocytes % (Manual) Nucleated RBC % Seg Neutrophils # Seg Neutrophils # Man Monocytes # (Manual) PT INR Activated Clotting Time POC ABG pH POC ABG pCO2 POC ABG pO2 Sodium Potassium Chloride Carbon Dioxide BUN Creatinine Glucose POC Glucose 170 H 161 H 131 H Calcium Magnesium Direct Bilirubin AST ALT Alkaline Phosphatase Total Creatine Kinase CK-MB (CK-2) CK-MB (CK-2) Rel Index Troponin T C-Reactive Protein Total Protein Albumin Triglycerides Ur Specific [place] Urine WBC (Auto) Miscellaneous Test 04/18/17 04/18/17 04/18/17 03:55 03:55 05:30 WBC RBC 3.05 L Hgb 9.8 L Hct 29.0 L MCV 95 H MCH RDW Plt Count 113 L Lymph % (Auto) [place] % (Auto) Eos % (Auto) 5.3 H Baso % (Auto) Lymph # Baso # Seg Neutrophils % 71.5 H Lymphocytes % (Manual) Monocytes % (Manual) Nucleated RBC % Seg Neutrophils # Seg Neutrophils # Man Monocytes # (Manual) PT INR Activated Clotting Time POC ABG pH 7.460 H POC ABG pCO2 30.8 L POC ABG pO2 129 H Sodium Potassium Chloride Carbon Dioxide 21 L BUN 25 H Creatinine 0.4 L Glucose 123 H POC Glucose Calcium 8.3 L Magnesium Direct Bilirubin AST ALT Alkaline Phosphatase Total Creatine Kinase CK-MB (CK-2) CK-MB (CK-2) Rel Index Troponin T C-Reactive Protein Total Protein Albumin Triglycerides Ur Specific [place] Urine WBC (Auto) Miscellaneous Test 04/18/17 04/18/17 04/19/17 17:10 23:40 04:36 WBC RBC 3.21 L Hgb 10.2 L Hct 30.4 L MCV 95 H MCH RDW Plt Count 131 L Lymph % (Auto) 12.1 L [place] % (Auto) Eos % (Auto) 4.7 H Baso % (Auto) 2.4 H Lymph # 0.9 L Baso # 0.2 H Seg Neutrophils % 75.0 H Lymphocytes % (Manual) Monocytes % (Manual) Nucleated RBC % Seg Neutrophils # Seg Neutrophils # Man Monocytes # (Manual) PT INR Activated Clotting Time POC ABG pH POC ABG pCO2 POC ABG pO2 Sodium Potassium Chloride Carbon Dioxide BUN Creatinine Glucose POC Glucose 135 H 157 H Calcium Magnesium Direct Bilirubin AST ALT Alkaline Phosphatase Total Creatine Kinase CK-MB (CK-2) CK-MB (CK-2) Rel Index Troponin T C-Reactive Protein Total Protein Albumin Triglycerides Ur Specific [place] Urine WBC (Auto) Miscellaneous Test 04/19/17 04/19/17 04/19/17 04:36 05:12 06:50 WBC RBC Hgb Hct MCV MCH RDW Plt Count Lymph % (Auto) [place] % (Auto) Eos % (Auto) Baso % (Auto) Lymph # Baso # Seg Neutrophils % Lymphocytes % (Manual) Monocytes % (Manual) Nucleated RBC % Seg Neutrophils # Seg Neutrophils # Man Monocytes # (Manual) PT INR Activated Clotting Time POC ABG pH 7.516 H POC ABG pCO2 28.0 L POC ABG pO2 Sodium Potassium Chloride Carbon Dioxide 21 L BUN 23 H Creatinine 0.2 L Glucose 137 H POC Glucose 131 H Calcium 7.9 L Magnesium Direct Bilirubin AST ALT Alkaline Phosphatase Total Creatine Kinase CK-MB (CK-2) CK-MB (CK-2) Rel Index Troponin T C-Reactive Protein Total Protein Albumin Triglycerides Ur Specific [place] Urine WBC (Auto) Miscellaneous Test 04/19/17 04/19/17 04/20/17 12:36 17:42 00:12 WBC RBC Hgb Hct MCV MCH RDW Plt Count Lymph % (Auto) [place] % (Auto) Eos % (Auto) Baso % (Auto) Lymph # Baso # Seg Neutrophils % Lymphocytes % (Manual) Monocytes % (Manual) Nucleated RBC % Seg Neutrophils # Seg Neutrophils # Man Monocytes # (Manual) PT INR Activated Clotting Time POC ABG pH POC ABG pCO2 POC ABG pO2 Sodium Potassium Chloride Carbon Dioxide BUN Creatinine Glucose POC Glucose 128 H 140 H 132 H Calcium Magnesium Direct Bilirubin AST ALT Alkaline Phosphatase Total Creatine Kinase CK-MB (CK-2) CK-MB (CK-2) Rel Index Troponin T C-Reactive Protein Total Protein Albumin Triglycerides Ur Specific [place] Urine WBC (Auto) Miscellaneous Test 04/20/17 04/20/17 04/20/17 03:35 03:35 05:10 WBC RBC 3.34 L Hgb 10.4 L Hct 31.6 L MCV 95 H MCH RDW Plt Count Lymph % (Auto) 12.9 L [place] % (Auto) Eos % (Auto) Baso % (Auto) Lymph # Baso # Seg Neutrophils % 77.3 H Lymphocytes % (Manual) Monocytes % (Manual) Nucleated RBC % Seg Neutrophils # Seg Neutrophils # Man Monocytes # (Manual) PT INR Activated Clotting Time POC ABG pH POC ABG pCO2 POC ABG pO2 Sodium Potassium Chloride Carbon Dioxide BUN Creatinine 0.3 L Glucose 155 H POC Glucose 135 H Calcium 7.8 L Magnesium Direct Bilirubin AST ALT Alkaline Phosphatase Total Creatine Kinase CK-MB (CK-2) CK-MB (CK-2) Rel Index Troponin T C-Reactive Protein Total Protein Albumin Triglycerides Ur Specific [place] Urine WBC (Auto) Miscellaneous Test 04/20/17 04/20/17 04/21/17 12:49 18:21 00:05 WBC RBC Hgb Hct MCV MCH RDW Plt Count Lymph % (Auto) [place] % (Auto) Eos % (Auto) Baso % (Auto) Lymph # Baso # Seg Neutrophils % Lymphocytes % (Manual) Monocytes % (Manual) Nucleated RBC % Seg Neutrophils # Seg Neutrophils # Man Monocytes # (Manual) PT INR Activated Clotting Time POC ABG pH POC ABG pCO2 POC ABG pO2 Sodium Potassium Chloride Carbon Dioxide BUN Creatinine Glucose POC Glucose 155 H 165 H 141 H Calcium Magnesium Direct Bilirubin AST ALT Alkaline Phosphatase Total Creatine Kinase CK-MB (CK-2) CK-MB (CK-2) Rel Index Troponin T C-Reactive Protein Total Protein Albumin Triglycerides Ur Specific [place] Urine WBC (Auto) Miscellaneous Test 04/21/17 04/21/17 04/21/17 06:00 12:11 17:04 WBC RBC Hgb Hct MCV MCH RDW Plt Count Lymph % (Auto) [place] % (Auto) Eos % (Auto) Baso % (Auto) Lymph # Baso # Seg Neutrophils % Lymphocytes % (Manual) Monocytes % (Manual) Nucleated RBC % Seg Neutrophils # Seg Neutrophils # Man Monocytes # (Manual) PT INR Activated Clotting Time POC ABG pH POC ABG pCO2 POC ABG pO2 Sodium Potassium Chloride Carbon Dioxide BUN Creatinine Glucose POC Glucose 152 H 165 H 156 H Calcium Magnesium Direct Bilirubin AST ALT Alkaline Phosphatase Total Creatine Kinase CK-MB (CK-2) CK-MB (CK-2) Rel Index Troponin T C-Reactive Protein Total Protein Albumin Triglycerides Ur Specific [place] Urine WBC (Auto) Miscellaneous Test 04/21/17 04/21/17 04/22/17 22:00 23:59 05:49 WBC RBC Hgb Hct MCV MCH RDW Plt Count Lymph % (Auto) [place] % (Auto) Eos % (Auto) Baso % (Auto) Lymph # Baso # Seg Neutrophils % Lymphocytes % (Manual) Monocytes % (Manual) Nucleated RBC % Seg Neutrophils # Seg Neutrophils # Man Monocytes # (Manual) PT INR Activated Clotting Time POC ABG pH POC ABG pCO2 POC ABG pO2 Sodium Potassium Chloride Carbon Dioxide BUN Creatinine Glucose POC Glucose 166 H 173 H Calcium Magnesium Direct Bilirubin AST ALT Alkaline Phosphatase Total Creatine Kinase CK-MB (CK-2) CK-MB (CK-2) Rel Index Troponin T C-Reactive Protein Total Protein Albumin Triglycerides Ur Specific [place] Urine WBC (Auto) 10.0 H Miscellaneous Test 04/22/17 04/22/17 04/23/17 11:11 18:04 00:37 WBC RBC Hgb Hct MCV MCH RDW Plt Count Lymph % (Auto) [place] % (Auto) Eos % (Auto) Baso % (Auto) Lymph # Baso # Seg Neutrophils % Lymphocytes % (Manual) Monocytes % (Manual) Nucleated RBC % Seg Neutrophils # Seg Neutrophils # Man Monocytes # (Manual) PT INR Activated Clotting Time POC ABG pH POC ABG pCO2 POC ABG pO2 Sodium Potassium Chloride Carbon Dioxide BUN Creatinine Glucose POC Glucose 172 H 140 H 135 H Calcium Magnesium Direct Bilirubin AST ALT Alkaline Phosphatase Total Creatine Kinase CK-MB (CK-2) CK-MB (CK-2) Rel Index Troponin T C-Reactive Protein Total Protein Albumin Triglycerides Ur Specific [place] Urine WBC (Auto) Miscellaneous Test 04/23/17 04/23/17 04/23/17 05:33 06:20 11:10 WBC RBC 3.19 L Hgb 9.9 L Hct 30.0 L MCV MCH RDW Plt Count Lymph % (Auto) 8.0 L [place] % (Auto) Eos % (Auto) Baso % (Auto) Lymph # 0.8 L Baso # Seg Neutrophils % 84.5 H Lymphocytes % (Manual) Monocytes % (Manual) Nucleated RBC % Seg Neutrophils # 8.2 H Seg Neutrophils # Man Monocytes # (Manual) PT INR Activated Clotting Time POC ABG pH POC ABG pCO2 POC ABG pO2 Sodium Potassium Chloride Carbon Dioxide BUN Creatinine Glucose POC Glucose 134 H 134 H Calcium Magnesium Direct Bilirubin AST ALT Alkaline Phosphatase Total Creatine Kinase CK-MB (CK-2) CK-MB (CK-2) Rel Index Troponin T C-Reactive Protein Total Protein Albumin Triglycerides Ur Specific [place] Urine WBC (Auto) Miscellaneous Test 04/23/17 04/24/17 04/24/17 17:26 00:53 06:46 WBC RBC Hgb Hct MCV MCH RDW Plt Count Lymph % (Auto) [place] % (Auto) Eos % (Auto) Baso % (Auto) Lymph # Baso # Seg Neutrophils % Lymphocytes % (Manual) Monocytes % (Manual) Nucleated RBC % Seg Neutrophils # Seg Neutrophils # Man Monocytes # (Manual) PT INR Activated Clotting Time POC ABG pH POC ABG pCO2 POC ABG pO2 Sodium Potassium Chloride Carbon Dioxide BUN Creatinine Glucose POC Glucose 164 H 146 H 125 H Calcium Magnesium Direct Bilirubin AST ALT Alkaline Phosphatase Total Creatine Kinase CK-MB (CK-2) CK-MB (CK-2) Rel Index Troponin T C-Reactive Protein Total Protein Albumin Triglycerides Ur Specific [place] Urine WBC (Auto) Miscellaneous Test 04/24/17 04/24/17 04/24/17 11:55 17:50 23:36 WBC RBC Hgb Hct MCV MCH RDW Plt Count Lymph % (Auto) [place] % (Auto) Eos % (Auto) Baso % (Auto) Lymph # Baso # Seg Neutrophils % Lymphocytes % (Manual) Monocytes % (Manual) Nucleated RBC % Seg Neutrophils # Seg Neutrophils # Man Monocytes # (Manual) PT INR Activated Clotting Time POC ABG pH POC ABG pCO2 POC ABG pO2 Sodium Potassium Chloride Carbon Dioxide BUN Creatinine Glucose POC Glucose 156 H 146 H 131 H Calcium Magnesium Direct Bilirubin AST ALT Alkaline Phosphatase Total Creatine Kinase CK-MB (CK-2) CK-MB (CK-2) Rel Index Troponin T C-Reactive Protein Total Protein Albumin Triglycerides Ur Specific [place] Urine WBC (Auto) Miscellaneous Test 04/25/17 04/25/17 04/25/17 04:51 05:16 07:07 WBC RBC Hgb Hct MCV MCH RDW Plt Count Lymph % (Auto) [place] % (Auto) Eos % (Auto) Baso % (Auto) Lymph # Baso # Seg Neutrophils % Lymphocytes % (Manual) Monocytes % (Manual) Nucleated RBC % Seg Neutrophils # Seg Neutrophils # Man Monocytes # (Manual) PT INR Activated Clotting Time POC ABG pH POC ABG pCO2 POC ABG pO2 Sodium Potassium Chloride Carbon Dioxide BUN Creatinine Glucose POC Glucose 139 H Calcium Magnesium Direct Bilirubin AST 105 H ALT 204 H Alkaline Phosphatase 189 H Total Creatine Kinase CK-MB (CK-2) CK-MB (CK-2) Rel Index Troponin T C-Reactive Protein Total Protein Albumin 2.4 L Triglycerides Ur Specific [place] Urine WBC (Auto) Miscellaneous Test Flexitest 1 H 04/25/17 04/25/17 04/25/17 12:29 17:23 23:32 WBC RBC Hgb Hct MCV MCH RDW Plt Count Lymph % (Auto) [place] % (Auto) Eos % (Auto) Baso % (Auto) Lymph # Baso # Seg Neutrophils % Lymphocytes % (Manual) Monocytes % (Manual) Nucleated RBC % Seg Neutrophils # Seg Neutrophils # Man Monocytes # (Manual) PT INR Activated Clotting Time POC ABG pH POC ABG pCO2 POC ABG pO2 Sodium Potassium Chloride Carbon Dioxide BUN Creatinine Glucose POC Glucose 132 H 133 H 128 H Calcium Magnesium Direct Bilirubin AST ALT Alkaline Phosphatase Total Creatine Kinase CK-MB (CK-2) CK-MB (CK-2) Rel Index Troponin T C-Reactive Protein Total Protein Albumin Triglycerides Ur Specific [place] Urine WBC (Auto) Miscellaneous Test 04/26/17 04/26/17 04/26/17 05:24 11:28 17:09 WBC RBC Hgb Hct MCV MCH RDW Plt Count Lymph % (Auto) [place] % (Auto) Eos % (Auto) Baso % (Auto) Lymph # Baso # Seg Neutrophils % Lymphocytes % (Manual) Monocytes % (Manual) Nucleated RBC % Seg Neutrophils # Seg Neutrophils # Man Monocytes # (Manual) PT INR Activated Clotting Time POC ABG pH POC ABG pCO2 POC ABG pO2 Sodium Potassium Chloride Carbon Dioxide BUN Creatinine Glucose POC Glucose 132 H 146 H 141 H Calcium Magnesium Direct Bilirubin AST ALT Alkaline Phosphatase Total Creatine Kinase CK-MB (CK-2) CK-MB (CK-2) Rel Index Troponin T C-Reactive Protein Total Protein Albumin Triglycerides Ur Specific [place] Urine WBC (Auto) Miscellaneous Test 04/26/17 04/27/17 04/27/17 23:52 05:40 05:40 WBC RBC 3.22 L Hgb 10.0 L Hct 29.9 L MCV MCH RDW Plt Count Lymph % (Auto) [place] % (Auto) Eos % (Auto) Baso % (Auto) Lymph # Baso # Seg Neutrophils % 76.6 H Lymphocytes % (Manual) Monocytes % (Manual) Nucleated RBC % Seg Neutrophils # Seg Neutrophils # Man Monocytes # (Manual) PT INR Activated Clotting Time POC ABG pH POC ABG pCO2 POC ABG pO2 Sodium Potassium Chloride Carbon Dioxide BUN Creatinine Glucose POC Glucose 140 H Calcium Magnesium Direct Bilirubin AST 66 H ALT 137 H Alkaline Phosphatase 169 H Total Creatine Kinase CK-MB (CK-2) CK-MB (CK-2) Rel Index Troponin T C-Reactive Protein Total Protein 6.2 L Albumin 2.6 L Triglycerides Ur Specific [place] Urine WBC (Auto) Miscellaneous Test 04/27/17 04/27/17 04/27/17 05:40 06:10 11:13 WBC RBC Hgb Hct MCV MCH RDW Plt Count Lymph % (Auto) [place] % (Auto) Eos % (Auto) Baso % (Auto) Lymph # Baso # Seg Neutrophils % Lymphocytes % (Manual) Monocytes % (Manual) Nucleated RBC % Seg Neutrophils # Seg Neutrophils # Man Monocytes # (Manual) PT INR Activated Clotting Time POC ABG pH POC ABG pCO2 POC ABG pO2 Sodium Potassium Chloride Carbon Dioxide BUN Creatinine 0.2 L Glucose 139 H POC Glucose 130 H 151 H Calcium Magnesium Direct Bilirubin AST ALT Alkaline Phosphatase Total Creatine Kinase CK-MB (CK-2) CK-MB (CK-2) Rel Index Troponin T C-Reactive Protein Total Protein Albumin Triglycerides Ur Specific [place] Urine WBC (Auto) Miscellaneous Test 04/27/17 04/27/17 04/28/17 17:37 23:19 05:24 WBC RBC Hgb Hct MCV MCH RDW Plt Count Lymph % (Auto) [place] % (Auto) Eos % (Auto) Baso % (Auto) Lymph # Baso # Seg Neutrophils % Lymphocytes % (Manual) Monocytes % (Manual) Nucleated RBC % Seg Neutrophils # Seg Neutrophils # Man Monocytes # (Manual) PT INR Activated Clotting Time POC ABG pH POC ABG pCO2 POC ABG pO2 Sodium Potassium Chloride Carbon Dioxide BUN Creatinine Glucose POC Glucose 159 H 130 H 132 H Calcium Magnesium Direct Bilirubin AST ALT Alkaline Phosphatase Total Creatine Kinase CK-MB (CK-2) CK-MB (CK-2) Rel Index Troponin T C-Reactive Protein Total Protein Albumin Triglycerides Ur Specific [place] Urine WBC (Auto) Miscellaneous Test 04/28/17 04/28/17 04/28/17 11:15 17:38 23:23 WBC RBC Hgb Hct MCV MCH RDW Plt Count Lymph % (Auto) [place] % (Auto) Eos % (Auto) Baso % (Auto) Lymph # Baso # Seg Neutrophils % Lymphocytes % (Manual) Monocytes % (Manual) Nucleated RBC % Seg Neutrophils # Seg Neutrophils # Man Monocytes # (Manual) PT INR Activated Clotting Time POC ABG pH POC ABG pCO2 POC ABG pO2 Sodium Potassium Chloride Carbon Dioxide BUN Creatinine Glucose POC Glucose 162 H 133 H 138 H Calcium Magnesium Direct Bilirubin AST ALT Alkaline Phosphatase Total Creatine Kinase CK-MB (CK-2) CK-MB (CK-2) Rel Index Troponin T C-Reactive Protein Total Protein Albumin Triglycerides Ur Specific [place] Urine WBC (Auto) Miscellaneous Test 04/29/17 04/29/17 04/29/17 05:15 12:55 17:21 WBC RBC Hgb Hct MCV MCH RDW Plt Count Lymph % (Auto) [place] % (Auto) Eos % (Auto) Baso % (Auto) Lymph # Baso # Seg Neutrophils % Lymphocytes % (Manual) Monocytes % (Manual) Nucleated RBC % Seg Neutrophils # Seg Neutrophils # Man Monocytes # (Manual) PT INR Activated Clotting Time POC ABG pH POC ABG pCO2 POC ABG pO2 Sodium Potassium Chloride Carbon Dioxide BUN Creatinine Glucose POC Glucose 135 H 127 H 138 H Calcium Magnesium Direct Bilirubin AST ALT Alkaline Phosphatase Total Creatine Kinase CK-MB (CK-2) CK-MB (CK-2) Rel Index Troponin T C-Reactive Protein Total Protein Albumin Triglycerides Ur Specific [place] Urine WBC (Auto) Miscellaneous Test 04/29/17 04/30/17 04/30/17 23:52 04:55 12:22 WBC RBC Hgb Hct MCV MCH RDW Plt Count Lymph % (Auto) [place] % (Auto) Eos % (Auto) Baso % (Auto) Lymph # Baso # Seg Neutrophils % Lymphocytes % (Manual) Monocytes % (Manual) Nucleated RBC % Seg Neutrophils # Seg Neutrophils # Man Monocytes # (Manual) PT INR Activated Clotting Time POC ABG pH POC ABG pCO2 POC ABG pO2 Sodium Potassium Chloride Carbon Dioxide BUN Creatinine Glucose POC Glucose 142 H 146 H 132 H Calcium Magnesium Direct Bilirubin AST ALT Alkaline Phosphatase Total Creatine Kinase CK-MB (CK-2) CK-MB (CK-2) Rel Index Troponin T C-Reactive Protein Total Protein Albumin Triglycerides Ur Specific [place] Urine WBC (Auto) Miscellaneous Test 04/30/17 04/30/17 04/30/17 14:25 17:47 18:20 WBC RBC Hgb Hct MCV MCH RDW Plt Count Lymph % (Auto) [place] % (Auto) Eos % (Auto) Baso % (Auto) Lymph # Baso # Seg Neutrophils % Lymphocytes % (Manual) Monocytes % (Manual) Nucleated RBC % Seg Neutrophils # Seg Neutrophils # Man Monocytes # (Manual) PT INR Activated Clotting Time POC ABG pH 7.551 H POC ABG pCO2 32.7 L POC ABG pO2 Sodium Potassium Chloride Carbon Dioxide BUN 21 H Creatinine 0.2 L Glucose 141 H POC Glucose 139 H Calcium Magnesium Direct Bilirubin AST ALT Alkaline Phosphatase Total Creatine Kinase CK-MB (CK-2) CK-MB (CK-2) Rel Index Troponin T C-Reactive Protein Total Protein Albumin Triglycerides Ur Specific [place] Urine WBC (Auto) Miscellaneous Test 05/01/17 05/01/17 05/01/17 01:26 05:30 05:30 WBC RBC 3.49 L Hgb 10.3 L Hct 31.9 L MCV MCH RDW Plt Count Lymph % (Auto) [place] % (Auto) 8.1 H Eos % (Auto) Baso % (Auto) Lymph # Baso # Seg Neutrophils % 71.3 H Lymphocytes % (Manual) Monocytes % (Manual) Nucleated RBC % Seg Neutrophils # Seg Neutrophils # Man Monocytes # (Manual) PT INR Activated Clotting Time POC ABG pH POC ABG pCO2 POC ABG pO2 Sodium 136 L Potassium Chloride 97.6 L Carbon Dioxide BUN Creatinine 0.2 L Glucose 123 H POC Glucose 116 H Calcium Magnesium Direct Bilirubin AST 71 H ALT 125 H Alkaline Phosphatase 158 H Total Creatine Kinase CK-MB (CK-2) CK-MB (CK-2) Rel Index Troponin T C-Reactive Protein Total Protein Albumin 2.6 L Triglycerides Ur Specific [place] Urine WBC (Auto) Miscellaneous Test 05/01/17 05/01/17 05/02/17 11:59 17:23 00:08 WBC RBC Hgb Hct MCV MCH RDW Plt Count Lymph % (Auto) [place] % (Auto) Eos % (Auto) Baso % (Auto) Lymph # Baso # Seg Neutrophils % Lymphocytes % (Manual) Monocytes % (Manual) Nucleated RBC % Seg Neutrophils # Seg Neutrophils # Man Monocytes # (Manual) PT INR Activated Clotting Time POC ABG pH POC ABG pCO2 POC ABG pO2 Sodium Potassium Chloride Carbon Dioxide BUN Creatinine Glucose POC Glucose 118 H 144 H 122 H Calcium Magnesium Direct Bilirubin AST ALT Alkaline Phosphatase Total Creatine Kinase CK-MB (CK-2) CK-MB (CK-2) Rel Index Troponin T C-Reactive Protein Total Protein Albumin Triglycerides Ur Specific [place] Urine WBC (Auto) Miscellaneous Test 05/02/17 05/02/17 05/02/17 05:50 11:21 17:48 WBC RBC Hgb Hct MCV MCH RDW Plt Count Lymph % (Auto) [place] % (Auto) Eos % (Auto) Baso % (Auto) Lymph # Baso # Seg Neutrophils % Lymphocytes % (Manual) Monocytes % (Manual) Nucleated RBC % Seg Neutrophils # Seg Neutrophils # Man Monocytes # (Manual) PT INR Activated Clotting Time POC ABG pH POC ABG pCO2 POC ABG pO2 Sodium Potassium Chloride Carbon Dioxide BUN Creatinine Glucose POC Glucose 120 H 121 H 140 H Calcium Magnesium Direct Bilirubin AST ALT Alkaline Phosphatase Total Creatine Kinase CK-MB (CK-2) CK-MB (CK-2) Rel Index Troponin T C-Reactive Protein Total Protein Albumin Triglycerides Ur Specific [place] Urine WBC (Auto) Miscellaneous Test 05/02/17 05/03/17 05/03/17 23:12 05:35 11:52 WBC RBC Hgb Hct MCV MCH RDW Plt Count Lymph % (Auto) [place] % (Auto) Eos % (Auto) Baso % (Auto) Lymph # Baso # Seg Neutrophils % Lymphocytes % (Manual) Monocytes % (Manual) Nucleated RBC % Seg Neutrophils # Seg Neutrophils # Man Monocytes # (Manual) PT INR Activated Clotting Time POC ABG pH POC ABG pCO2 POC ABG pO2 Sodium Potassium Chloride Carbon Dioxide BUN Creatinine Glucose POC Glucose 128 H 113 H 126 H Calcium Magnesium Direct Bilirubin AST ALT Alkaline Phosphatase Total Creatine Kinase CK-MB (CK-2) CK-MB (CK-2) Rel Index Troponin T C-Reactive Protein Total Protein Albumin Triglycerides Ur Specific [place] Urine WBC (Auto) Miscellaneous Test 05/03/17 05/03/17 05/04/17 17:29 23:26 04:55 WBC RBC Hgb Hct MCV MCH RDW Plt Count Lymph % (Auto) [place] % (Auto) Eos % (Auto) Baso % (Auto) Lymph # Baso # Seg Neutrophils % Lymphocytes % (Manual) Monocytes % (Manual) Nucleated RBC % Seg Neutrophils # Seg Neutrophils # Man Monocytes # (Manual) PT INR Activated Clotting Time POC ABG pH POC ABG pCO2 POC ABG pO2 Sodium Potassium Chloride Carbon Dioxide BUN Creatinine Glucose POC Glucose 141 H 129 H 126 H Calcium Magnesium Direct Bilirubin AST ALT Alkaline Phosphatase Total Creatine Kinase CK-MB (CK-2) CK-MB (CK-2) Rel Index Troponin T C-Reactive Protein Total Protein Albumin Triglycerides Ur Specific [place] Urine WBC (Auto) Miscellaneous Test 05/04/17 05/04/17 05/05/17 12:09 17:46 00:06 WBC RBC Hgb Hct MCV MCH RDW Plt Count Lymph % (Auto) [place] % (Auto) Eos % (Auto) Baso % (Auto) Lymph # Baso # Seg Neutrophils % Lymphocytes % (Manual) Monocytes % (Manual) Nucleated RBC % Seg Neutrophils # Seg Neutrophils # Man Monocytes # (Manual) PT INR Activated Clotting Time POC ABG pH POC ABG pCO2 POC ABG pO2 Sodium Potassium Chloride Carbon Dioxide BUN Creatinine Glucose POC Glucose 125 H 125 H 110 H Calcium Magnesium Direct Bilirubin AST ALT Alkaline Phosphatase Total Creatine Kinase CK-MB (CK-2) CK-MB (CK-2) Rel Index Troponin T C-Reactive Protein Total Protein Albumin Triglycerides Ur Specific [place] Urine WBC (Auto) Miscellaneous Test 05/05/17 05/05/17 05/05/17 05:48 11:41 16:19 WBC RBC Hgb Hct MCV MCH RDW Plt Count Lymph % (Auto) [place] % (Auto) Eos % (Auto) Baso % (Auto) Lymph # Baso # Seg Neutrophils % Lymphocytes % (Manual) Monocytes % (Manual) Nucleated RBC % Seg Neutrophils # Seg Neutrophils # Man Monocytes # (Manual) PT INR Activated Clotting Time POC ABG pH POC ABG pCO2 POC ABG pO2 Sodium Potassium Chloride Carbon Dioxide BUN Creatinine Glucose POC Glucose 124 H 122 H 120 H Calcium Magnesium Direct Bilirubin AST ALT Alkaline Phosphatase Total Creatine Kinase CK-MB (CK-2) CK-MB (CK-2) Rel Index Troponin T C-Reactive Protein Total Protein Albumin Triglycerides Ur Specific [place] Urine WBC (Auto) Miscellaneous Test 05/06/17 05/06/17 05/06/17 00:16 05:47 11:42 WBC RBC Hgb Hct MCV MCH RDW Plt Count Lymph % (Auto) [place] % (Auto) Eos % (Auto) Baso % (Auto) Lymph # Baso # Seg Neutrophils % Lymphocytes % (Manual) Monocytes % (Manual) Nucleated RBC % Seg Neutrophils # Seg Neutrophils # Man Monocytes # (Manual) PT INR Activated Clotting Time POC ABG pH POC ABG pCO2 POC ABG pO2 Sodium Potassium Chloride Carbon Dioxide BUN Creatinine Glucose POC Glucose 110 H 142 H 120 H Calcium Magnesium Direct Bilirubin AST ALT Alkaline Phosphatase Total Creatine Kinase CK-MB (CK-2) CK-MB (CK-2) Rel Index Troponin T C-Reactive Protein Total Protein Albumin Triglycerides Ur Specific [place] Urine WBC (Auto) Miscellaneous Test 05/06/17 05/07/17 05/07/17 17:46 00:07 05:28 WBC RBC Hgb Hct MCV MCH RDW Plt Count Lymph % (Auto) [place] % (Auto) Eos % (Auto) Baso % (Auto) Lymph # Baso # Seg Neutrophils % Lymphocytes % (Manual) Monocytes % (Manual) Nucleated RBC % Seg Neutrophils # Seg Neutrophils # Man Monocytes # (Manual) PT INR Activated Clotting Time POC ABG pH POC ABG pCO2 POC ABG pO2 Sodium Potassium Chloride Carbon Dioxide BUN Creatinine Glucose POC Glucose 127 H 145 H 124 H Calcium Magnesium Direct Bilirubin AST ALT Alkaline Phosphatase Total Creatine Kinase CK-MB (CK-2) CK-MB (CK-2) Rel Index Troponin T C-Reactive Protein Total Protein Albumin Triglycerides Ur Specific [place] Urine WBC (Auto) Miscellaneous Test 05/07/17 05/07/17 05/08/17 11:17 17:14 00:03 WBC RBC Hgb Hct MCV MCH RDW Plt Count Lymph % (Auto) [place] % (Auto) Eos % (Auto) Baso % (Auto) Lymph # Baso # Seg Neutrophils % Lymphocytes % (Manual) Monocytes % (Manual) Nucleated RBC % Seg Neutrophils # Seg Neutrophils # Man Monocytes # (Manual) PT INR Activated Clotting Time POC ABG pH POC ABG pCO2 POC ABG pO2 Sodium Potassium Chloride Carbon Dioxide BUN Creatinine Glucose POC Glucose 144 H 125 H 122 H Calcium Magnesium Direct Bilirubin AST ALT Alkaline Phosphatase Total Creatine Kinase CK-MB (CK-2) CK-MB (CK-2) Rel Index Troponin T C-Reactive Protein Total Protein Albumin Triglycerides Ur Specific [place] Urine WBC (Auto) Miscellaneous Test 05/08/17 05/08/17 05/08/17 05:43 12:07 18:02 WBC RBC Hgb Hct MCV MCH RDW Plt Count Lymph % (Auto) [place] % (Auto) Eos % (Auto) Baso % (Auto) Lymph # Baso # Seg Neutrophils % Lymphocytes % (Manual) Monocytes % (Manual) Nucleated RBC % Seg Neutrophils # Seg Neutrophils # Man Monocytes # (Manual) PT INR Activated Clotting Time POC ABG pH POC ABG pCO2 POC ABG pO2 Sodium Potassium Chloride Carbon Dioxide BUN Creatinine Glucose POC Glucose 117 H 114 H 129 H Calcium Magnesium Direct Bilirubin AST ALT Alkaline Phosphatase Total Creatine Kinase CK-MB (CK-2) CK-MB (CK-2) Rel Index Troponin T C-Reactive Protein Total Protein Albumin Triglycerides Ur Specific [place] Urine WBC (Auto) Miscellaneous Test 05/08/17 05/09/17 05/09/17 23:53 04:19 05:14 WBC RBC Hgb Hct MCV MCH RDW Plt Count Lymph % (Auto) [place] % (Auto) Eos % (Auto) Baso % (Auto) Lymph # Baso # Seg Neutrophils % Lymphocytes % (Manual) Monocytes % (Manual) Nucleated RBC % Seg Neutrophils # Seg Neutrophils # Man Monocytes # (Manual) PT INR Activated Clotting Time POC ABG pH 7.524 H POC ABG pCO2 34.7 L POC ABG pO2 107 H Sodium Potassium Chloride Carbon Dioxide BUN Creatinine Glucose POC Glucose 125 H 118 H Calcium Magnesium Direct Bilirubin AST ALT Alkaline Phosphatase Total Creatine Kinase CK-MB (CK-2) CK-MB (CK-2) Rel Index Troponin T C-Reactive Protein Total Protein Albumin Triglycerides Ur Specific [place] Urine WBC (Auto) Miscellaneous Test 05/10/17 05/11/17 05/11/17 23:54 05:48 23:50 WBC RBC Hgb Hct MCV MCH RDW Plt Count Lymph % (Auto) [place] % (Auto) Eos % (Auto) Baso % (Auto) Lymph # Baso # Seg Neutrophils % Lymphocytes % (Manual) Monocytes % (Manual) Nucleated RBC % Seg Neutrophils # Seg Neutrophils # Man Monocytes # (Manual) PT INR Activated Clotting Time POC ABG pH POC ABG pCO2 POC ABG pO2 Sodium Potassium Chloride Carbon Dioxide BUN Creatinine Glucose POC Glucose 126 H 137 H 130 H Calcium Magnesium Direct Bilirubin AST ALT Alkaline Phosphatase Total Creatine Kinase CK-MB (CK-2) CK-MB (CK-2) Rel Index Troponin T C-Reactive Protein Total Protein Albumin Triglycerides Ur Specific [place] Urine WBC (Auto) Miscellaneous Test 05/12/17 05/12/17 05/12/17 05:48 11:33 18:00 WBC RBC Hgb Hct MCV MCH RDW Plt Count Lymph % (Auto) [place] % (Auto) Eos % (Auto) Baso % (Auto) Lymph # Baso # Seg Neutrophils % Lymphocytes % (Manual) Monocytes % (Manual) Nucleated RBC % Seg Neutrophils # Seg Neutrophils # Man Monocytes # (Manual) PT INR Activated Clotting Time POC ABG pH POC ABG pCO2 POC ABG pO2 Sodium Potassium Chloride Carbon Dioxide BUN Creatinine Glucose POC Glucose 126 H 116 H 131 H Calcium Magnesium Direct Bilirubin AST ALT Alkaline Phosphatase Total Creatine Kinase CK-MB (CK-2) CK-MB (CK-2) Rel Index Troponin T C-Reactive Protein Total Protein Albumin Triglycerides Ur Specific [place] Urine WBC (Auto) Miscellaneous Test 05/14/17 05/15/17 05/15/17 11:45 11:27 17:42 WBC RBC Hgb Hct MCV MCH RDW Plt Count Lymph % (Auto) [place] % (Auto) Eos % (Auto) Baso % (Auto) Lymph # Baso # Seg Neutrophils % Lymphocytes % (Manual) Monocytes % (Manual) Nucleated RBC % Seg Neutrophils # Seg Neutrophils # Man Monocytes # (Manual) PT INR Activated Clotting Time POC ABG pH POC ABG pCO2 POC ABG pO2 Sodium Potassium Chloride Carbon Dioxide BUN Creatinine Glucose POC Glucose 123 H 129 H 125 H Calcium Magnesium Direct Bilirubin AST ALT Alkaline Phosphatase Total Creatine Kinase CK-MB (CK-2) CK-MB (CK-2) Rel Index Troponin T C-Reactive Protein Total Protein Albumin Triglycerides Ur Specific [place] Urine WBC (Auto) Miscellaneous Test 05/16/17 05/16/17 05/17/17 00:29 06:50 03:45 WBC RBC Hgb 11.7 L Hct 34.8 L MCV MCH RDW 15.5 H Plt Count Lymph % (Auto) [place] % (Auto) 7.7 H Eos % (Auto) Baso % (Auto) Lymph # Baso # Seg Neutrophils % 73.7 H Lymphocytes % (Manual) Monocytes % (Manual) Nucleated RBC % Seg Neutrophils # Seg Neutrophils # Man Monocytes # (Manual) PT INR Activated Clotting Time POC ABG pH POC ABG pCO2 POC ABG pO2 Sodium Potassium Chloride Carbon Dioxide BUN Creatinine Glucose POC Glucose 141 H 138 H Calcium Magnesium Direct Bilirubin AST ALT Alkaline Phosphatase Total Creatine Kinase CK-MB (CK-2) CK-MB (CK-2) Rel Index Troponin T C-Reactive Protein Total Protein Albumin Triglycerides Ur Specific [place] Urine WBC (Auto) Miscellaneous Test 05/17/17 05/20/17 05/23/17 03:45 17:31 23:09 WBC RBC Hgb Hct MCV MCH RDW Plt Count Lymph % (Auto) [place] % (Auto) Eos % (Auto) Baso % (Auto) Lymph # Baso # Seg Neutrophils % Lymphocytes % (Manual) Monocytes % (Manual) Nucleated RBC % Seg Neutrophils # Seg Neutrophils # Man Monocytes # (Manual) PT INR Activated Clotting Time POC ABG pH POC ABG pCO2 POC ABG pO2 Sodium Potassium Chloride Carbon Dioxide BUN Creatinine 0.2 L Glucose 131 H POC Glucose 116 H 122 H Calcium Magnesium Direct Bilirubin AST ALT Alkaline Phosphatase Total Creatine Kinase CK-MB (CK-2) CK-MB (CK-2) Rel Index Troponin T C-Reactive Protein Total Protein Albumin Triglycerides Ur Specific [place] Urine WBC (Auto) Miscellaneous Test 05/24/17 05/26/17 05/27/17 05:37 05:23 01:16 WBC RBC Hgb Hct MCV MCH RDW Plt Count Lymph % (Auto) [place] % (Auto) Eos % (Auto) Baso % (Auto) Lymph # Baso # Seg Neutrophils % Lymphocytes % (Manual) Monocytes % (Manual) Nucleated RBC % Seg Neutrophils # Seg Neutrophils # Man Monocytes # (Manual) PT INR Activated Clotting Time POC ABG pH POC ABG pCO2 POC ABG pO2 Sodium Potassium Chloride Carbon Dioxide BUN Creatinine Glucose POC Glucose 139 H 108 H 126 H Calcium Magnesium Direct Bilirubin AST ALT Alkaline Phosphatase Total Creatine Kinase CK-MB (CK-2) CK-MB (CK-2) Rel Index Troponin T C-Reactive Protein Total Protein Albumin Triglycerides Ur Specific [place] Urine WBC (Auto) Miscellaneous Test 05/27/17 05/27/17 05/29/17 05:33 21:49 04:37 WBC RBC Hgb Hct MCV MCH RDW 15.5 H Plt Count Lymph % (Auto) [place] % (Auto) Eos % (Auto) Baso % (Auto) Lymph # Baso # Seg Neutrophils % Lymphocytes % (Manual) Monocytes % (Manual) Nucleated RBC % Seg Neutrophils # Seg Neutrophils # Man Monocytes # (Manual) PT INR Activated Clotting Time POC ABG pH POC ABG pCO2 POC ABG pO2 Sodium Potassium Chloride Carbon Dioxide BUN Creatinine Glucose POC Glucose 129 H 110 H Calcium Magnesium Direct Bilirubin AST ALT Alkaline Phosphatase Total Creatine Kinase CK-MB (CK-2) CK-MB (CK-2) Rel Index Troponin T C-Reactive Protein Total Protein Albumin Triglycerides Ur Specific [place] Urine WBC (Auto) Miscellaneous Test 05/29/17 06/01/17 04:37 05:28 WBC RBC Hgb Hct MCV MCH RDW Plt Count Lymph % (Auto) [place] % (Auto) Eos % (Auto) Baso % (Auto) Lymph # Baso # Seg Neutrophils % Lymphocytes % (Manual) Monocytes % (Manual) Nucleated RBC % Seg Neutrophils # Seg Neutrophils # Man Monocytes # (Manual) PT INR Activated Clotting Time POC ABG pH POC ABG pCO2 POC ABG pO2 Sodium Potassium Chloride 97.6 L Carbon Dioxide BUN Creatinine 0.2 L Glucose 121 H POC Glucose 133 H Calcium Magnesium Direct Bilirubin AST ALT Alkaline Phosphatase Total Creatine Kinase CK-MB (CK-2) CK-MB (CK-2) Rel Index Troponin T C-Reactive Protein Total Protein Albumin Triglycerides Ur Specific [place] Urine WBC (Auto) Miscellaneous Test
[2017-06-03] MEDS: ELIQUIS PO SCH ×3 (00:29→22:19)
[2017-06-03] MEDS: CORDARONE PO SCH ×3 (00:29→22:19)
[2017-06-03] MEDS: LOPRESSOR PO SCH ×2 (00:30→10:42)
--- NOTE | 2017-06-03 09:13 | Progress Note ---
Assessment and Plan Assessment and plan: 46 YO Male with No PMH presents to ED for evaluation. Pt is unresponsive and unable to provide history. Pt history taken from ED staff and EMS. Pt was at work today and suddenly passed out around 1050 hrs-which was witnessed by patients coworkers. EMS notified, and upon arrival the patient was found to have V Fib. Pt treated IAW ACLS protocol. The patient was given 3 defibrillations, 2 rounds of epinephrine, Narcan, and a half amp of sodium bicarbonate. Pt found to be in respiratory distress and was intubated and placed on vent support. Cardiology team notified, and patient was taken urgently to [facility] materials s[facility], and admitted to ICU. He went on to have emergency cath for STEMI, 100% occlusion of LAD was found and had successful angioplasty and stents placed. 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 Patient does have a trach and PEG per family request. He was found to have right upper extremity DVT for which PICC line which was the offending agents was removed and the patient was put on anticoagulant. He completed a course of antibiotics for pneumonia due to MRSA. At this time the patient's is awaiting insurance, application was done earlier this year. After which he has medical insurance the goal will be to transfer him to an LTAC or SNIF facility. This was discussed with his family and he stated that the cannot care for him at home . At this time, he is on PSV trials with goal to wean to T piece Diagnoses anoxic brain injury/anoxic encephalopathy/Persistent Vegetative State Acute Respiratory failure requiring MV >96 hours Anterior STEMI sp cardiac arrest with V fib Aspiration PNA due to MRSA/Gram positive Sepsis cardiogenic Shock Sepsis/Right lower lobe aspiration pneumonia, most likely due to gram-positive bacteria Hypokalemia Hypernatremia/dehydration/free water deficit RUE DVT, --Severe Protein calorie malnutrition: V. fib arrest status post, Acute Cystitis treated with abx Hypertension History Interval history: Patient is nonresponsive, lacks most reflexes, had fever, no vomiting, no agitation sister states that RUE is swollen Hospitalist Physical - Physical exam Narrative exam: General.: Comatose breathes over the vent HEENT: Moist mucous membranes, no LAD, Neck: supple Cardiac: S1-S2 heard Lungs: clear to auscultation bilaterally Abdomen: soft , nontender, nondistended, bowel sounds positive Extremities: RUE edema Skin: no rash or lesions Neurologic: Patient is in deep coma, has gag reflexs and corneal reflex , decerebrate posturing, pupils are fixed and non reactive, lacks all other reflexes, opens eyes spontaneously, no purposeful movement, does not obey commands - Constitutional Vitals: Temp Pulse Resp BP Pulse Ox 98.4 F 71 21 121/84 100 06/03/17 08:00 06/03/17 07:50 06/03/17 06:00 06/03/17 07:50 06/03/17 07:53 General appearance: Present: other (tracheostomy on vent) Results - Labs CBC & Chem 7: 05/29/17 04:37 05/29/17 04:37 Labs: Laboratory Last Values WBC 8.0 K/mm3 (4.5-11.0) 05/29/17 04:37 RBC 4.52 M/mm3 (3.65-5.03) 05/29/17 04:37 Hgb 13.6 gm/dl (11.8-15.2) 05/29/17 04:37 Hct 40.6 % (35.5-45.6) 05/29/17 04:37 MCV 90 fl (84-94) 05/29/17 04:37 MCH 30 pg (28-32) 05/29/17 04:37 MCHC 33 % (32-34) 05/29/17 04:37 RDW 15.5 % (13.2-15.2) H 05/29/17 04:37 Plt Count 222 K/mm3 (140-440) 05/29/17 04:37 Lymph % (Auto) 15.6 % (13.4-35.0) 05/17/17 03:45 [place] % (Auto) 7.7 % (0.0-7.3) H 05/17/17 03:45 Eos % (Auto) 2.7 % (0.0-4.3) 05/17/17 03:45 Baso % (Auto) 0.3 % (0.0-1.8) 05/17/17 03:45 Lymph # 1.5 K/mm3 (1.2-5.4) 05/17/17 03:45 [place] # 0.7 K/mm3 (0.0-0.8) 05/17/17 03:45 Eos # 0.3 K/mm3 (0.0-0.4) 05/17/17 03:45 Baso # 0.0 K/mm3 (0.0-0.1) 05/17/17 03:45 Add Manual Diff Complete 03/30/17 03:50 Total Counted 100 03/30/17 03:50 Seg Neutrophils % 73.7 % (40.0-70.0) H 05/17/17 03:45 Seg Neuts % (Manual) 65.0 % (40.0-70.0) 03/30/17 03:50 Band Neutrophils % 17.0 % 03/30/17 03:50 Lymphocytes % (Manual) 7.0 % (13.4-35.0) L 03/30/17 03:50 Reactive Lymphs % (Man) 0 % 03/30/17 03:50 Monocytes % (Manual) 7.0 % (0.0-7.3) 03/30/17 03:50 Eosinophils % (Manual) 0 % (0.0-4.3) 03/30/17 03:50 Basophils % (Manual) 0 % (0.0-1.8) 03/30/17 03:50 Metamyelocytes % 4.0 % 03/30/17 03:50 Myelocytes % 0 % 03/30/17 03:50 Promyelocytes % 0 % 03/30/17 03:50 Blast Cells % 0 % 03/30/17 03:50 Nucleated RBC % Not Reportable 03/30/17 03:50 Seg Neutrophils # 6.9 K/mm3 (1.8-7.7) 05/17/17 03:45 Seg Neutrophils # Man 12.7 K/mm3 (1.8-7.7) H 03/30/17 03:50 Band Neutrophils # 3.3 K/mm3 03/30/17 03:50 Lymphocytes # (Manual) 1.4 K/mm3 (1.2-5.4) 03/30/17 03:50 Abs React Lymphs (Man) 0.0 K/mm3 03/30/17 03:50 Monocytes # (Manual) 1.4 K/mm3 (0.0-0.8) H 03/30/17 03:50 Eosinophils # (Manual) 0.0 K/mm3 (0.0-0.4) 03/30/17 03:50 Basophils # (Manual) 0.0 K/mm3 (0.0-0.1) 03/30/17 03:50 Metamyelocytes # 0.8 K/mm3 03/30/17 03:50 Myelocytes # 0.0 K/mm3 03/30/17 03:50 Promyelocytes # 0.0 K/mm3 03/30/17 03:50 Blast Cells # 0.0 K/mm3 03/30/17 03:50 WBC Morphology Not Reportable 03/30/17 03:50 Hypersegmented Neuts Not Reportable 03/30/17 03:50 Hyposegmented Neuts Not Reportable 03/30/17 03:50 Hypogranular Neuts Not Reportable 03/30/17 03:50 Smudge Cells Not Reportable 03/30/17 03:50 Toxic Granulation Not Reportable 03/30/17 03:50 Toxic Vacuolation Not Reportable 03/30/17 03:50 Dohle Bodies Not Reportable 03/30/17 03:50 Pelger-Huet Anomaly Not Reportable 03/30/17 03:50 Sheryr Rods Not Reportable 03/30/17 03:50 Platelet Estimate Appears normal 03/30/17 03:50 Clumped Platelets Not Reportable 03/30/17 03:50 Plt Clumps, EDTA Not Reportable 03/30/17 03:50 Large Platelets Not Reportable 03/30/17 03:50 Giant Platelets Not Reportable 03/30/17 03:50 Platelet Satelliting Not Reportable 03/30/17 03:50 Plt Morphology Comment Not Reportable 03/30/17 03:50 RBC Morphology Not Reportable 03/30/17 03:50 Dimorphic RBCs Not Reportable 03/30/17 03:50 Polychromasia Not Reportable 03/30/17 03:50 Hypochromasia Not Reportable 03/30/17 03:50 Poikilocytosis Not Reportable 03/30/17 03:50 Anisocytosis Few 03/30/17 03:50 Microcytosis Not Reportable 03/30/17 03:50 Macrocytosis Not Reportable 03/30/17 03:50 Spherocytes Not Reportable 03/30/17 03:50 Pappenheimer Bodies Not Reportable 03/30/17 03:50 Sickle Cells Not Reportable 03/30/17 03:50 Target Cells Not Reportable 03/30/17 03:50 Tear Drop Cells Not Reportable 03/30/17 03:50 Ovalocytes Not Reportable 03/30/17 03:50 Helmet Cells Not Reportable 03/30/17 03:50 [place] Bodies Not Reportable 03/30/17 03:50 [place] Rings Not Reportable 03/30/17 03:50 Ramer Cells Not Reportable 03/30/17 03:50 Bite Cells Not Reportable 03/30/17 03:50 Crenated Cell Not Reportable 03/30/17 03:50 Elliptocytes Not Reportable 03/30/17 03:50 Acanthocytes (Spur) Not Reportable 03/30/17 03:50 Rouleaux Not Reportable 03/30/17 03:50 Hemoglobin C Crystals Not Reportable 03/30/17 03:50 Schistocytes Not Reportable 03/30/17 03:50 Malaria parasites Not Reportable 03/30/17 03:50 Jermaine Bodies Not Reportable 03/30/17 03:50 Hem Pathologist Commnt No 03/30/17 03:50 PT 14.9 Sec. (12.2-14.9) 04/10/17 04:16 INR 1.11 (0.87-1.13) 04/10/17 04:16 APTT 27.8 Sec. (24.2-36.6) 04/10/17 04:16 Activated Clotting Time 92 (74-137) 03/29/17 17:47 POC ABG pH 7.524 (7.35-7.45) H 05/09/17 04:19 POC ABG pCO2 34.7 (35-45) L 05/09/17 04:19 POC ABG pO2 107 (80-105) H 05/09/17 04:19 POC ABG HCO3 28.6 05/09/17 04:19 POC ABG Total CO2 30 05/09/17 04:19 POC ABG O2 Sat 99 05/09/17 04:19 POC ABG Base Excess 6 05/09/17 04:19 FiO2 25 % 05/09/17 04:19 Sodium 138 mmol/L (137-145) 05/29/17 04:37 Potassium 4.2 mmol/L (3.6-5.0) 05/29/17 04:37 Chloride 97.6 mmol/L (98-107) L 05/29/17 04:37 Carbon Dioxide 23 mmol/L (22-30) 05/29/17 04:37 Anion Gap 22 mmol/L 05/29/17 04:37 BUN 14 mg/dL (9-20) 05/29/17 04:37 Creatinine 0.2 mg/dL (0.8-1.5) L 05/29/17 04:37 Estimated GFR > 60 ml/min 05/29/17 04:37 BUN/Creatinine Ratio 70 % 05/29/17 04:37 Glucose 121 mg/dL (75-100) H 05/29/17 04:37 POC Glucose 133 (70-105) H 06/01/17 05:28 Calcium 9.5 mg/dL (8.4-10.2) 05/29/17 04:37 Phosphorus 3.50 mg/dL (2.5-4.5) 04/13/17 04:45 Magnesium 1.80 mg/dL (1.7-2.3) 05/01/17 05:30 Total Bilirubin 0.60 mg/dL (0.1-1.2) 05/01/17 05:30 Direct Bilirubin < 0.2 mg/dL (0-0.2) 04/27/17 05:40 Indirect Bilirubin 0.3 mg/dL 04/25/17 04:51 AST 71 units/L (5-40) H 05/01/17 05:30 ALT 125 units/L (7-56) H 05/01/17 05:30 Alkaline Phosphatase 158 units/L (35-129) H 05/01/17 05:30 Total Creatine Kinase 1404 units/L (55-170) H 04/12/17 21:36 CK-MB (CK-2) 8.0 ng/mL (0.0-4.0) H 04/12/17 21:36 CK-MB (CK-2) Rel Index 0.5 (0-4) 04/12/17 21:36 Troponin T 0.767 ng/mL (0.00-0.029) H* 04/12/17 21:36 C-Reactive Protein 21.80 mg/dL (0.00-1.30) H 03/30/17 16:04 Total Protein 6.7 g/dL (6.3-8.2) 05/01/17 05:30 Albumin 2.6 g/dL (3.9-5) L 05/01/17 05:30 Albumin/Globulin Ratio 0.6 % 05/01/17 05:30 Triglycerides 151 mg/dL (2-149) H 04/01/17 04:29 Cholesterol 164 mg/dL (50-199) 03/29/17 19:52 LDL Cholesterol Direct 81 mg/dL (50-130) 03/29/17 19:52 HDL Cholesterol 44 mg/dL (40-59) 03/29/17 19:52 Cholesterol/HDL Ratio 3.72 % 03/29/17 19:52 Urine Color [place] (Yellow) 04/21/17 22:00 Urine Turbidity Clear (Clear) 04/21/17 22:00 Urine pH 5.0 (5.0-7.0) 04/21/17 22:00 Ur Specific [place] 1.029 (1.003-1.030) 04/21/17 22:00 Urine Protein 30 mg/dl mg/dL (Negative) 04/21/17 22:00 Urine Glucose (UA) Neg mg/dL (Negative) 04/21/17 22:00 Urine Ketones Neg mg/dL (Negative) 04/21/17 22:00 Urine Blood Mod (Negative) 04/21/17 22:00 Urine Nitrite Neg (Negative) 04/21/17 22:00 Urine Bilirubin Neg (Negative) 04/21/17 22:00 Urine Urobilinogen 4.0 mg/dL (<2.0) 04/21/17 22:00 Ur Leukocyte Esterase Neg (Negative) 04/21/17 22:00 Urine WBC (Auto) 10.0 /HPF (0.0-6.0) H 04/21/17 22:00 Urine RBC (Auto) 44.0 /HPF (0.0-6.0) 04/21/17 22:00 U Epithel Cells (Auto) < 1.0 /HPF (0-13.0) 04/21/17 22:00 Amorphous Crystals 1+ 03/30/17 09:45 Urine Mucus 3+ /HPF 04/21/17 22:00 Urine Opiates Screen Presumptive negative 03/30/17 09:45 Urine Methadone Screen Presumptive negative 03/30/17 09:45 Ur Barbiturates Screen Presumptive negative 03/30/17 09:45 Ur Phencyclidine Scrn Presumptive negative 03/30/17 09:45 Ur Amphetamines Screen Presumptive positive 03/30/17 09:45 U Benzodiazepines Scrn Presumptive positive 03/30/17 09:45 Urine Cocaine Screen Presumptive negative 03/30/17 09:45 U Marijuana (THC) Screen Presumptive negative 03/30/17 09:45 Drugs of Abuse Note Disclamer 03/30/17 09:45 Miscellaneous Test Flexitest 1 H 04/25/17 07:07 Blood Type O POSITIVE 03/29/17 11:35 Antibody Screen Negative 03/29/17 11:35
--- NOTE | 2017-06-03 09:45 | Progress Note ---
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 No new recommendations for today. Patient remains full code and will continue PSV as tolerated with hopes of weaning to T-piece. He continues to have Apnea and fails PSV trials. Family has been made aware of this. 1. PSV as tolerated with a goal to get to T-piece 2. Once tolerates T-piece for 24 hours, can consider transfer to floor, this is highly unlikely. 3. reviewed neurology note and agree with assessment 4. Continue all other cardiac meds 5. Overall prognosis still remains poor given amount of downtime during arrest. 6. Family meeting held, they feel the patient will overcome this current state as they have had other family members do the same. Very in depth conversation about the prognosis and current clinical state. I've made my best attempt to help them understand. Neuro agrees. Will continue supportive measures and attempt to wean. CCT 31 minutes. Subjective Date of service: 06/03/17 Principal diagnosis: coma,ARV,s/p arrest Interval history: No acute events. mental state is unchanged. No family at the bedside. Objective Vital Signs - 12hr 06/02/17 06/02/17 06/02/17 22:00 23:00 23:48 Temperature Pulse Rate 72 62 67 Pulse Rate [ From Monitor] Respiratory 12 22 Rate Blood Pressure 109/68 106/70 108/73 O2 Sat by Pulse 97 99 97 Oximetry O2 Sat by Pulse Oximetry [ Assessment] 06/03/17 06/03/17 06/03/17 00:00 00:21 00:30 Temperature 98.9 F Pulse Rate 64 70 Pulse Rate [ 71 From Monitor] Respiratory 23 Rate Blood Pressure 112/74 112/74 O2 Sat by Pulse 99 Oximetry O2 Sat by Pulse 100 Oximetry [ Assessment] 06/03/17 06/03/17 06/03/17 01:00 02:00 03:00 Temperature Pulse Rate 66 66 68 Pulse Rate [ From Monitor] Respiratory 21 17 15 Rate Blood Pressure 118/76 113/72 123/81 O2 Sat by Pulse 99 95 98 Oximetry O2 Sat by Pulse Oximetry [ Assessment] 06/03/17 06/03/17 06/03/17 04:00 05:00 05:02 Temperature 98.8 F Pulse Rate 68 72 66 Pulse Rate [ 68 From Monitor] Respiratory 16 19 Rate Blood Pressure 119/72 117/79 123/76 O2 Sat by Pulse 97 95 100 Oximetry O2 Sat by Pulse Oximetry [ Assessment] 06/03/17 06/03/17 06/03/17 06:00 07:50 07:53 Temperature Pulse Rate 69 71 Pulse Rate [ From Monitor] Respiratory 21 Rate Blood Pressure 114/75 121/84 O2 Sat by Pulse 97 100 Oximetry O2 Sat by Pulse 100 Oximetry [ Assessment] 06/03/17 08:00 Temperature 98.4 F Pulse Rate Pulse Rate [ 61 From Monitor] Respiratory 17 Rate Blood Pressure O2 Sat by Pulse 99 Oximetry O2 Sat by Pulse Oximetry [ Assessment] Constitutional: no acute distress, comatose Eyes: non-icteric ENT: oropharynx moist Neck: supple, other (tracheotomy ) Effort: normal Ascultation: Bilateral: clear, diminished breath sounds, other (coarse BS bilaterally) Percussion: Bilateral: not dull Cardiovascular: regular rate and rhythm Gastrointestinal: normoactive bowel sounds, soft, non-tender, non-distended Integumentary: normal Extremities: no cyanosis, no edema, pink and warm Neurologic: other (nonresponsive with flaccid extremities) Psychiatric: other (eyes open spontaneously but does not follow any voice commands, otherwise nonresponsive except for pain) CBC and BMP: 05/29/17 04:37 05/29/17 04:37 ABG, PT/INR, D-dimer: ABG POC ABG pH 7.524 (7.35-7.45) H 05/09/17 04:19 POC ABG pCO2 34.7 (35-45) L 05/09/17 04:19 POC ABG pO2 107 (80-105) H 05/09/17 04:19 POC ABG HCO3 28.6 05/09/17 04:19 POC ABG Total CO2 30 05/09/17 04:19 POC ABG O2 Sat 99 05/09/17 04:19 PT/INR, D-dimer PT 14.9 Sec. (12.2-14.9) 04/10/17 04:16 INR 1.11 (0.87-1.13) 04/10/17 04:16 Abnormal lab findings: Abnormal Labs 03/29/17 03/29/17 03/29/17 11:35 11:35 11:40 WBC RBC Hgb Hct MCV 98 H MCH 33 H RDW Plt Count Lymph % (Auto) Mcleod % (Auto) Eos % (Auto) Baso % (Auto) Lymph # Baso # Seg Neutrophils % Lymphocytes % (Manual) Monocytes % (Manual) 9.0 H Nucleated RBC % 1.0 H Seg Neutrophils # Seg Neutrophils # Man Monocytes # (Manual) 0.9 H PT 15.8 H INR 1.20 H Activated Clotting Time POC ABG pH POC ABG pCO2 POC ABG pO2 Sodium Potassium 2.7 L* Chloride 95.3 L Carbon Dioxide 17 L BUN Creatinine Glucose 435 H POC Glucose Calcium Magnesium Direct Bilirubin AST ALT Alkaline Phosphatase Total Creatine Kinase CK-MB (CK-2) CK-MB (CK-2) Rel Index Troponin T C-Reactive Protein Total Protein 6.1 L Albumin 3.5 L Triglycerides Ur Specific H[place] Urine WBC (Auto) Miscellaneous Test 03/29/17 03/29/17 03/29/17 12:34 13:10 13:25 WBC RBC Hgb Hct MCV MCH RDW Plt Count Lymph % (Auto) Mcleod % (Auto) Eos % (Auto) Baso % (Auto) Lymph # Baso # Seg Neutrophils % Lymphocytes % (Manual) Monocytes % (Manual) Nucleated RBC % Seg Neutrophils # Seg Neutrophils # Man Monocytes # (Manual) PT INR Activated Clotting Time 142 H 169 H 175 H POC ABG pH POC ABG pCO2 POC ABG pO2 Sodium Potassium Chloride Carbon Dioxide BUN Creatinine Glucose POC Glucose Calcium Magnesium Direct Bilirubin AST ALT Alkaline Phosphatase Total Creatine Kinase CK-MB (CK-2) CK-MB (CK-2) Rel Index Troponin T C-Reactive Protein Total Protein Albumin Triglycerides Ur Specific [place] Urine WBC (Auto) Miscellaneous Test 03/29/17 03/29/17 03/29/17 14:50 15:18 19:52 WBC RBC Hgb Hct MCV MCH RDW Plt Count Lymph % (Auto) [place]cleod % (Auto) Eos % (Auto) Baso % (Auto) Lymph # Baso # Seg Neutrophils % Lymphocytes % (Manual) Monocytes % (Manual) Nucleated RBC % Seg Neutrophils # Seg Neutrophils # Man Monocytes # (Manual) PT INR Activated Clotting Time 175 H POC ABG pH 7.293 L POC ABG pCO2 POC ABG pO2 602 H Sodium Potassium Chloride Carbon Dioxide BUN Creatinine Glucose POC Glucose Calcium Magnesium Direct Bilirubin AST ALT Alkaline Phosphatase Total Creatine Kinase 7263 H CK-MB (CK-2) > 300.0 H CK-MB (CK-2) Rel Index 4.1 H Troponin T 8.080 H* D C-Reactive Protein Total Protein Albumin Triglycerides 195 H Ur Specific [place] Urine WBC (Auto) Miscellaneous Test 03/30/17 03/30/17 03/30/17 03:50 03:50 06:19 WBC 19.5 H RBC Hgb Hct MCV MCH RDW Plt Count Lymph % (Auto) Mcleod % (Auto) Eos % (Auto) Baso % (Auto) Lymph # Baso # Seg Neutrophils % Lymphocytes % (Manual) 7.0 L Monocytes % (Manual) Nucleated RBC % Seg Neutrophils # Seg Neutrophils # Man 12.7 H Monocytes # (Manual) 1.4 H PT INR Activated Clotting Time POC ABG pH POC ABG pCO2 28.2 L POC ABG pO2 108 H Sodium Potassium Chloride 108.9 H Carbon Dioxide 15 L BUN 25 H Creatinine Glucose 158 H POC Glucose Calcium 8.1 L Magnesium Direct Bilirubin AST ALT Alkaline Phosphatase Total Creatine Kinase 7963 H CK-MB (CK-2) > 300.0 H CK-MB (CK-2) Rel Index Troponin T 6.850 H* C-Reactive Protein Total Protein Albumin Triglycerides Ur Specific [place] Urine WBC (Auto) Miscellaneous Test 03/30/17 03/30/17 03/31/17 09:45 16:04 02:19 WBC RBC Hgb Hct MCV MCH RDW Plt Count Lymph % (Auto) [place]cleod % (Auto) Eos % (Auto) Baso % (Auto) Lymph # Baso # Seg Neutrophils % Lymphocytes % (Manual) Monocytes % (Manual) Nucleated RBC % Seg Neutrophils # Seg Neutrophils # Man Monocytes # (Manual) PT INR Activated Clotting Time POC ABG pH POC ABG pCO2 POC ABG pO2 Sodium Potassium Chloride Carbon Dioxide BUN Creatinine Glucose POC Glucose 137 H Calcium Magnesium Direct Bilirubin AST ALT Alkaline Phosphatase Total Creatine Kinase CK-MB (CK-2) CK-MB (CK-2) Rel Index Troponin T C-Reactive Protein 21.80 H Total Protein Albumin Triglycerides Ur Specific [place] 1.031 H Urine WBC (Auto) Miscellaneous Test 03/31/17 03/31/17 03/31/17 03:57 06:54 09:22 WBC RBC Hgb Hct MCV MCH RDW Plt Count Lymph % (Auto) [place]cleod % (Auto) Eos % (Auto) Baso % (Auto) Lymph # Baso # Seg Neutrophils % Lymphocytes % (Manual) Monocytes % (Manual) Nucleated RBC % Seg Neutrophils # Seg Neutrophils # Man Monocytes # (Manual) PT INR Activated Clotting Time POC ABG pH 7.475 H POC ABG pCO2 25.4 L POC ABG pO2 62 L Sodium Potassium Chloride Carbon Dioxide 19 L BUN 22 H Creatinine 0.6 L Glucose 148 H POC Glucose 143 H Calcium 8.3 L Magnesium Direct Bilirubin AST ALT Alkaline Phosphatase Total Creatine Kinase CK-MB (CK-2) CK-MB (CK-2) Rel Index Troponin T C-Reactive Protein Total Protein Albumin Triglycerides Ur Specific [place] Urine WBC (Auto) Miscellaneous Test 03/31/17 03/31/17 03/31/17 11:40 17:47 23:38 WBC RBC Hgb Hct MCV MCH RDW Plt Count Lymph % (Auto) Mcleod % (Auto) Eos % (Auto) Baso % (Auto) Lymph # Baso # Seg Neutrophils % Lymphocytes % (Manual) Monocytes % (Manual) Nucleated RBC % Seg Neutrophils # Seg Neutrophils # Man Monocytes # (Manual) PT INR Activated Clotting Time POC ABG pH POC ABG pCO2 POC ABG pO2 Sodium Potassium Chloride Carbon Dioxide BUN Creatinine Glucose POC Glucose 127 H 137 H 148 H Calcium Magnesium Direct Bilirubin AST ALT Alkaline Phosphatase Total Creatine Kinase CK-MB (CK-2) CK-MB (CK-2) Rel Index Troponin T C-Reactive Protein Total Protein Albumin Triglycerides Ur Specific [place] Urine WBC (Auto) Miscellaneous Test 04/01/17 04/01/17 04/01/17 04:29 05:01 11:54 WBC RBC Hgb Hct MCV MCH RDW Plt Count Lymph % (Auto) Mcleod % (Auto) Eos % (Auto) Baso % (Auto) Lymph # Baso # Seg Neutrophils % Lymphocytes % (Manual) Monocytes % (Manual) Nucleated RBC % Seg Neutrophils # Seg Neutrophils # Man Monocytes # (Manual) PT INR Activated Clotting Time POC ABG pH 7.513 H POC ABG pCO2 22.1 L POC ABG pO2 64 L Sodium Potassium Chloride Carbon Dioxide BUN Creatinine Glucose POC Glucose 121 H Calcium Magnesium Direct Bilirubin AST ALT Alkaline Phosphatase Total Creatine Kinase CK-MB (CK-2) CK-MB (CK-2) Rel Index Troponin T C-Reactive Protein Total Protein Albumin Triglycerides 151 H Ur Specific [place] Urine WBC (Auto) Miscellaneous Test 04/01/17 04/02/17 04/02/17 18:17 00:11 04:52 WBC RBC Hgb Hct MCV MCH RDW Plt Count Lymph % (Auto) Mcleod % (Auto) Eos % (Auto) Baso % (Auto) Lymph # Baso # Seg Neutrophils % Lymphocytes % (Manual) Monocytes % (Manual) Nucleated RBC % Seg Neutrophils # Seg Neutrophils # Man Monocytes # (Manual) PT INR Activated Clotting Time POC ABG pH 7.524 H POC ABG pCO2 25.5 L POC ABG pO2 66 L Sodium Potassium Chloride Carbon Dioxide BUN Creatinine Glucose POC Glucose 117 H 122 H Calcium Magnesium Direct Bilirubin AST ALT Alkaline Phosphatase Total Creatine Kinase CK-MB (CK-2) CK-MB (CK-2) Rel Index Troponin T C-Reactive Protein Total Protein Albumin Triglycerides Ur Specific [place] Urine WBC (Auto) Miscellaneous Test 04/02/17 04/02/17 04/02/17 05:18 10:41 12:19 WBC RBC Hgb Hct MCV MCH RDW Plt Count Lymph % (Auto) Mcleod % (Auto) Eos % (Auto) Baso % (Auto) Lymph # Baso # Seg Neutrophils % Lymphocytes % (Manual) Monocytes % (Manual) Nucleated RBC % Seg Neutrophils # Seg Neutrophils # Man Monocytes # (Manual) PT INR Activated Clotting Time POC ABG pH 7.534 H POC ABG pCO2 27.4 L POC ABG pO2 Sodium Potassium Chloride Carbon Dioxide BUN Creatinine Glucose POC Glucose 132 H 129 H Calcium Magnesium Direct Bilirubin AST ALT Alkaline Phosphatase Total Creatine Kinase CK-MB (CK-2) CK-MB (CK-2) Rel Index Troponin T C-Reactive Protein Total Protein Albumin Triglycerides Ur Specific [place] Urine WBC (Auto) Miscellaneous Test 04/02/17 04/03/17 04/03/17 18:05 00:08 05:09 WBC RBC Hgb Hct MCV MCH RDW Plt Count Lymph % (Auto) [place]cleod % (Auto) Eos % (Auto) Baso % (Auto) Lymph # Baso # Seg Neutrophils % Lymphocytes % (Manual) Monocytes % (Manual) Nucleated RBC % Seg Neutrophils # Seg Neutrophils # Man Monocytes # (Manual) PT INR Activated Clotting Time POC ABG pH 7.455 H POC ABG pCO2 33.2 L POC ABG pO2 120 H Sodium Potassium Chloride Carbon Dioxide BUN Creatinine Glucose POC Glucose 136 H 128 H Calcium Magnesium Direct Bilirubin AST ALT Alkaline Phosphatase Total Creatine Kinase CK-MB (CK-2) CK-MB (CK-2) Rel Index Troponin T C-Reactive Protein Total Protein Albumin Triglycerides Ur Specific [place] Urine WBC (Auto) Miscellaneous Test 04/03/17 04/03/17 04/03/17 06:32 11:54 12:16 WBC 11.9 H RBC Hgb Hct MCV MCH RDW Plt Count 125 L Lymph % (Auto) 4.8 L Mcleod % (Auto) Eos % (Auto) Baso % (Auto) Lymph # 0.6 L Baso # Seg Neutrophils % 86.7 H Lymphocytes % (Manual) Monocytes % (Manual) Nucleated RBC % Seg Neutrophils # 10.3 H Seg Neutrophils # Man Monocytes # (Manual) PT INR Activated Clotting Time POC ABG pH POC ABG pCO2 POC ABG pO2 Sodium Potassium Chloride Carbon Dioxide BUN Creatinine Glucose POC Glucose 138 H 143 H Calcium Magnesium Direct Bilirubin AST ALT Alkaline Phosphatase Total Creatine Kinase CK-MB (CK-2) CK-MB (CK-2) Rel Index Troponin T C-Reactive Protein Total Protein Albumin Triglycerides Ur Specific [place] Urine WBC (Auto) Miscellaneous Test 04/03/17 04/03/17 04/04/17 17:33 23:59 04:34 WBC RBC Hgb Hct MCV MCH RDW Plt Count Lymph % (Auto) [place]cleod % (Auto) Eos % (Auto) Baso % (Auto) Lymph # Baso # Seg Neutrophils % Lymphocytes % (Manual) Monocytes % (Manual) Nucleated RBC % Seg Neutrophils # Seg Neutrophils # Man Monocytes # (Manual) PT INR Activated Clotting Time POC ABG pH 7.457 H POC ABG pCO2 29.8 L POC ABG pO2 76 L Sodium Potassium Chloride Carbon Dioxide BUN Creatinine Glucose POC Glucose 130 H 155 H Calcium Magnesium Direct Bilirubin AST ALT Alkaline Phosphatase Total Creatine Kinase CK-MB (CK-2) CK-MB (CK-2) Rel Index Troponin T C-Reactive Protein Total Protein Albumin Triglycerides Ur Specific [place] Urine WBC (Auto) Miscellaneous Test 04/04/17 04/04/17 04/04/17 05:27 12:22 18:18 WBC RBC Hgb Hct MCV MCH RDW Plt Count Lymph % (Auto) [place]cleod % (Auto) Eos % (Auto) Baso % (Auto) Lymph # Baso # Seg Neutrophils % Lymphocytes % (Manual) Monocytes % (Manual) Nucleated RBC % Seg Neutrophils # Seg Neutrophils # Man Monocytes # (Manual) PT INR Activated Clotting Time POC ABG pH POC ABG pCO2 POC ABG pO2 Sodium Potassium Chloride Carbon Dioxide BUN Creatinine Glucose POC Glucose 164 H 146 H 130 H Calcium Magnesium Direct Bilirubin AST ALT Alkaline Phosphatase Total Creatine Kinase CK-MB (CK-2) CK-MB (CK-2) Rel Index Troponin T C-Reactive Protein Total Protein Albumin Triglycerides Ur Specific [place] Urine WBC (Auto) Miscellaneous Test 04/05/17 04/05/17 04/05/17 04:43 05:28 11:36 WBC RBC Hgb Hct MCV MCH RDW Plt Count Lymph % (Auto) Mcleod % (Auto) Eos % (Auto) Baso % (Auto) Lymph # Baso # Seg Neutrophils % Lymphocytes % (Manual) Monocytes % (Manual) Nucleated RBC % Seg Neutrophils # Seg Neutrophils # Man Monocytes # (Manual) PT INR Activated Clotting Time POC ABG pH 7.479 H POC ABG pCO2 33.5 L POC ABG pO2 76 L Sodium Potassium Chloride Carbon Dioxide BUN Creatinine Glucose POC Glucose 145 H 136 H Calcium Magnesium Direct Bilirubin AST ALT Alkaline Phosphatase Total Creatine Kinase CK-MB (CK-2) CK-MB (CK-2) Rel Index Troponin T C-Reactive Protein Total Protein Albumin Triglycerides Ur Specific [place] Urine WBC (Auto) Miscellaneous Test 04/05/17 04/06/17 04/06/17 17:58 00:16 05:26 WBC RBC Hgb Hct MCV MCH RDW Plt Count Lymph % (Auto) [place]cleod % (Auto) Eos % (Auto) Baso % (Auto) Lymph # Baso # Seg Neutrophils % Lymphocytes % (Manual) Monocytes % (Manual) Nucleated RBC % Seg Neutrophils # Seg Neutrophils # Man Monocytes # (Manual) PT INR Activated Clotting Time POC ABG pH POC ABG pCO2 POC ABG pO2 Sodium Potassium Chloride Carbon Dioxide BUN Creatinine Glucose POC Glucose 130 H 159 H 146 H Calcium Magnesium Direct Bilirubin AST ALT Alkaline Phosphatase Total Creatine Kinase CK-MB (CK-2) CK-MB (CK-2) Rel Index Troponin T C-Reactive Protein Total Protein Albumin Triglycerides Ur Specific [place] Urine WBC (Auto) Miscellaneous Test 04/06/17 04/06/17 04/07/17 13:11 16:54 11:45 WBC RBC Hgb Hct MCV MCH RDW Plt Count Lymph % (Auto) [place]cleod % (Auto) Eos % (Auto) Baso % (Auto) Lymph # Baso # Seg Neutrophils % Lymphocytes % (Manual) Monocytes % (Manual) Nucleated RBC % Seg Neutrophils # Seg Neutrophils # Man Monocytes # (Manual) PT INR Activated Clotting Time POC ABG pH 7.517 H POC ABG pCO2 32.1 L POC ABG pO2 Sodium Potassium Chloride Carbon Dioxide BUN Creatinine Glucose POC Glucose 132 H 123 H Calcium Magnesium Direct Bilirubin AST ALT Alkaline Phosphatase Total Creatine Kinase CK-MB (CK-2) CK-MB (CK-2) Rel Index Troponin T C-Reactive Protein Total Protein Albumin Triglycerides Ur Specific [place] Urine WBC (Auto) Miscellaneous Test 04/07/17 04/07/17 04/07/17 12:51 17:40 23:55 WBC RBC Hgb Hct MCV MCH RDW Plt Count Lymph % (Auto) [place]od % (Auto) Eos % (Auto) Baso % (Auto) Lymph # Baso # Seg Neutrophils % Lymphocytes % (Manual) Monocytes % (Manual) Nucleated RBC % Seg Neutrophils # Seg Neutrophils # Man Monocytes # (Manual) PT INR Activated Clotting Time POC ABG pH POC ABG pCO2 POC ABG pO2 Sodium Potassium Chloride Carbon Dioxide BUN Creatinine Glucose POC Glucose 138 H 154 H 143 H Calcium Magnesium Direct Bilirubin AST ALT Alkaline Phosphatase Total Creatine Kinase CK-MB (CK-2) CK-MB (CK-2) Rel Index Troponin T C-Reactive Protein Total Protein Albumin Triglycerides Ur Specific [place] Urine WBC (Auto) Miscellaneous Test 04/08/17 04/08/17 04/08/17 05:27 11:14 17:44 WBC RBC Hgb Hct MCV MCH RDW Plt Count Lymph % (Auto) [place] % (Auto) Eos % (Auto) Baso % (Auto) Lymph # Baso # Seg Neutrophils % Lymphocytes % (Manual) Monocytes % (Manual) Nucleated RBC % Seg Neutrophils # Seg Neutrophils # Man Monocytes # (Manual) PT INR Activated Clotting Time POC ABG pH POC ABG pCO2 POC ABG pO2 Sodium Potassium Chloride Carbon Dioxide BUN Creatinine Glucose POC Glucose 142 H 153 H 129 H Calcium Magnesium Direct Bilirubin AST ALT Alkaline Phosphatase Total Creatine Kinase CK-MB (CK-2) CK-MB (CK-2) Rel Index Troponin T C-Reactive Protein Total Protein Albumin Triglycerides Ur Specific [place] Urine WBC (Auto) Miscellaneous Test 04/09/17 04/09/17 04/09/17 08:20 11:21 17:37 WBC RBC Hgb Hct MCV MCH RDW Plt Count Lymph % (Auto) [place] % (Auto) Eos % (Auto) Baso % (Auto) Lymph # Baso # Seg Neutrophils % Lymphocytes % (Manual) Monocytes % (Manual) Nucleated RBC % Seg Neutrophils # Seg Neutrophils # Man Monocytes # (Manual) PT INR Activated Clotting Time POC ABG pH POC ABG pCO2 POC ABG pO2 Sodium 147 H Potassium Chloride 108.8 H Carbon Dioxide BUN 39 H Creatinine 0.5 L Glucose 138 H POC Glucose 152 H 109 H Calcium Magnesium Direct Bilirubin AST ALT Alkaline Phosphatase Total Creatine Kinase CK-MB (CK-2) CK-MB (CK-2) Rel Index Troponin T C-Reactive Protein Total Protein Albumin Triglycerides Ur Specific [place] Urine WBC (Auto) Miscellaneous Test 04/10/17 04/10/17 04/10/17 00:13 04:16 04:16 WBC RBC Hgb 11.5 L Hct MCV 96 H MCH RDW Plt Count 103 L Lymph % (Auto) 11.1 L Mcleod % (Auto) Eos % (Auto) Baso % (Auto) Lymph # Baso # Seg Neutrophils % 81.5 H Lymphocytes % (Manual) Monocytes % (Manual) Nucleated RBC % Seg Neutrophils # 8.8 H Seg Neutrophils # Man Monocytes # (Manual) PT INR Activated Clotting Time POC ABG pH POC ABG pCO2 POC ABG pO2 Sodium 148 H Potassium Chloride 109.0 H Carbon Dioxide BUN 36 H Creatinine 0.5 L Glucose 131 H POC Glucose 127 H Calcium 8.1 L Magnesium 2.40 H Direct Bilirubin AST 206 H ALT 228 H Alkaline Phosphatase 178 H Total Creatine Kinase CK-MB (CK-2) CK-MB (CK-2) Rel Index Troponin T C-Reactive Protein Total Protein Albumin 2.8 L Triglycerides Ur Specific [place] Urine WBC (Auto) Miscellaneous Test 04/10/17 04/10/17 04/10/17 06:01 11:57 18:27 WBC RBC Hgb Hct MCV MCH RDW Plt Count Lymph % (Auto) [place]cleod % (Auto) Eos % (Auto) Baso % (Auto) Lymph # Baso # Seg Neutrophils % Lymphocytes % (Manual) Monocytes % (Manual) Nucleated RBC % Seg Neutrophils # Seg Neutrophils # Man Monocytes # (Manual) PT INR Activated Clotting Time POC ABG pH POC ABG pCO2 POC ABG pO2 Sodium Potassium Chloride Carbon Dioxide BUN Creatinine Glucose POC Glucose 108 H 154 H 130 H Calcium Magnesium Direct Bilirubin AST ALT Alkaline Phosphatase Total Creatine Kinase CK-MB (CK-2) CK-MB (CK-2) Rel Index Troponin T C-Reactive Protein Total Protein Albumin Triglycerides Ur Specific [place] Urine WBC (Auto) Miscellaneous Test 04/11/17 04/11/17 04/12/17 12:25 17:10 00:22 WBC RBC Hgb Hct MCV MCH RDW Plt Count Lymph % (Auto) Mcleod % (Auto) Eos % (Auto) Baso % (Auto) Lymph # Baso # Seg Neutrophils % Lymphocytes % (Manual) Monocytes % (Manual) Nucleated RBC % Seg Neutrophils # Seg Neutrophils # Man Monocytes # (Manual) PT INR Activated Clotting Time POC ABG pH POC ABG pCO2 POC ABG pO2 Sodium Potassium Chloride Carbon Dioxide BUN Creatinine Glucose POC Glucose 107 H 129 H 128 H Calcium Magnesium Direct Bilirubin AST ALT Alkaline Phosphatase Total Creatine Kinase CK-MB (CK-2) CK-MB (CK-2) Rel Index Troponin T C-Reactive Protein Total Protein Albumin Triglycerides Ur Specific [place] Urine WBC (Auto) Miscellaneous Test 04/12/17 04/12/17 04/12/17 05:00 11:57 17:47 WBC RBC Hgb Hct MCV MCH RDW Plt Count Lymph % (Auto) [place]od % (Auto) Eos % (Auto) Baso % (Auto) Lymph # Baso # Seg Neutrophils % Lymphocytes % (Manual) Monocytes % (Manual) Nucleated RBC % Seg Neutrophils # Seg Neutrophils # Man Monocytes # (Manual) PT INR Activated Clotting Time POC ABG pH POC ABG pCO2 POC ABG pO2 Sodium Potassium Chloride Carbon Dioxide BUN Creatinine Glucose POC Glucose 140 H 142 H Calcium Magnesium Direct Bilirubin AST 158 H ALT 184 H Alkaline Phosphatase 170 H Total Creatine Kinase CK-MB (CK-2) CK-MB (CK-2) Rel Index Troponin T C-Reactive Protein Total Protein Albumin 2.8 L Triglycerides Ur Specific [place] Urine WBC (Auto) Miscellaneous Test 04/12/17 04/12/17 04/13/17 21:36 21:36 01:37 WBC RBC Hgb Hct MCV MCH RDW Plt Count Lymph % (Auto) [place] % (Auto) Eos % (Auto) Baso % (Auto) Lymph # Baso # Seg Neutrophils % Lymphocytes % (Manual) Monocytes % (Manual) Nucleated RBC % Seg Neutrophils # Seg Neutrophils # Man Monocytes # (Manual) PT INR Activated Clotting Time POC ABG pH POC ABG pCO2 POC ABG pO2 Sodium Potassium Chloride Carbon Dioxide BUN Creatinine Glucose POC Glucose 126 H Calcium Magnesium Direct Bilirubin AST ALT Alkaline Phosphatase Total Creatine Kinase 1404 H CK-MB (CK-2) 8.0 H CK-MB (CK-2) Rel Index Troponin T 0.767 H* C-Reactive Protein Total Protein Albumin Triglycerides Ur Specific [place] Urine WBC (Auto) Miscellaneous Test 04/13/17 04/13/17 04/13/17 04:45 04:52 12:17 WBC RBC Hgb Hct MCV MCH RDW Plt Count Lymph % (Auto) [place] % (Auto) Eos % (Auto) Baso % (Auto) Lymph # Baso # Seg Neutrophils % Lymphocytes % (Manual) Monocytes % (Manual) Nucleated RBC % Seg Neutrophils # Seg Neutrophils # Man Monocytes # (Manual) PT INR Activated Clotting Time POC ABG pH POC ABG pCO2 POC ABG pO2 Sodium 148 H Potassium Chloride 112.8 H Carbon Dioxide BUN 33 H Creatinine 0.4 L Glucose 121 H POC Glucose 126 H 149 H Calcium Magnesium Direct Bilirubin AST 160 H ALT 189 H Alkaline Phosphatase 166 H Total Creatine Kinase CK-MB (CK-2) CK-MB (CK-2) Rel Index Troponin T C-Reactive Protein Total Protein Albumin 2.6 L Triglycerides Ur Specific [place] Urine WBC (Auto) Miscellaneous Test 04/13/17 04/14/17 04/14/17 17:45 00:20 00:45 WBC RBC Hgb Hct MCV MCH RDW Plt Count Lymph % (Auto) [place]cleod % (Auto) Eos % (Auto) Baso % (Auto) Lymph # Baso # Seg Neutrophils % Lymphocytes % (Manual) Monocytes % (Manual) Nucleated RBC % Seg Neutrophils # Seg Neutrophils # Man Monocytes # (Manual) PT INR Activated Clotting Time POC ABG pH POC ABG pCO2 POC ABG pO2 Sodium Potassium Chloride Carbon Dioxide BUN Creatinine Glucose POC Glucose 130 H 144 H 144 H Calcium Magnesium Direct Bilirubin AST ALT Alkaline Phosphatase Total Creatine Kinase CK-MB (CK-2) CK-MB (CK-2) Rel Index Troponin T C-Reactive Protein Total Protein Albumin Triglycerides Ur Specific [place] Urine WBC (Auto) Miscellaneous Test 04/14/17 04/14/17 04/14/17 05:40 11:06 11:31 WBC RBC Hgb Hct MCV MCH RDW Plt Count Lymph % (Auto) [place]cleod % (Auto) Eos % (Auto) Baso % (Auto) Lymph # Baso # Seg Neutrophils % Lymphocytes % (Manual) Monocytes % (Manual) Nucleated RBC % Seg Neutrophils # Seg Neutrophils # Man Monocytes # (Manual) PT INR Activated Clotting Time POC ABG pH POC ABG pCO2 POC ABG pO2 Sodium Potassium Chloride Carbon Dioxide BUN Creatinine Glucose POC Glucose 139 H 123 H Calcium Magnesium Direct Bilirubin AST ALT Alkaline Phosphatase Total Creatine Kinase CK-MB (CK-2) CK-MB (CK-2) Rel Index Troponin T C-Reactive Protein Total Protein Albumin Triglycerides Ur Specific [place] 1.033 H Urine WBC (Auto) > 182.0 H Miscellaneous Test 04/14/17 04/14/17 04/15/17 18:00 23:52 05:15 WBC 12.5 H RBC 3.38 L Hgb 10.6 L Hct 32.7 L MCV 97 H MCH RDW Plt Count 107 L Lymph % (Auto) 8.7 L Mcleod % (Auto) Eos % (Auto) Baso % (Auto) Lymph # 1.1 L Baso # Seg Neutrophils % 86.1 H Lymphocytes % (Manual) Monocytes % (Manual) Nucleated RBC % Seg Neutrophils # 10.7 H Seg Neutrophils # Man Monocytes # (Manual) PT INR Activated Clotting Time POC ABG pH POC ABG pCO2 POC ABG pO2 Sodium Potassium Chloride Carbon Dioxide BUN Creatinine Glucose POC Glucose 133 H 133 H Calcium Magnesium Direct Bilirubin AST ALT Alkaline Phosphatase Total Creatine Kinase CK-MB (CK-2) CK-MB (CK-2) Rel Index Troponin T C-Reactive Protein Total Protein Albumin Triglycerides Ur Specific [place] Urine WBC (Auto) Miscellaneous Test 04/15/17 04/15/17 04/15/17 05:15 05:25 11:50 WBC RBC Hgb Hct MCV MCH RDW Plt Count Lymph % (Auto) [place] % (Auto) Eos % (Auto) Baso % (Auto) Lymph # Baso # Seg Neutrophils % Lymphocytes % (Manual) Monocytes % (Manual) Nucleated RBC % Seg Neutrophils # Seg Neutrophils # Man Monocytes # (Manual) PT INR Activated Clotting Time POC ABG pH POC ABG pCO2 POC ABG pO2 Sodium 149 H Potassium 3.5 L Chloride 114.1 H Carbon Dioxide 21 L BUN 29 H Creatinine 0.4 L Glucose 128 H POC Glucose 133 H 107 H Calcium 8.3 L Magnesium Direct Bilirubin 0.4 H AST 149 H ALT 182 H Alkaline Phosphatase 143 H Total Creatine Kinase CK-MB (CK-2) CK-MB (CK-2) Rel Index Troponin T C-Reactive Protein Total Protein Albumin 2.5 L Triglycerides Ur Specific [place] Urine WBC (Auto) Miscellaneous Test 04/15/17 04/16/17 04/16/17 16:55 00:02 03:17 WBC RBC 3.39 L Hgb 10.5 L Hct 32.4 L MCV 96 H MCH RDW Plt Count 106 L Lymph % (Auto) 6.7 L [place] % (Auto) Eos % (Auto) Baso % (Auto) Lymph # 0.6 L Baso # Seg Neutrophils % 86.8 H Lymphocytes % (Manual) Monocytes % (Manual) Nucleated RBC % Seg Neutrophils # 8.2 H Seg Neutrophils # Man Monocytes # (Manual) PT INR Activated Clotting Time POC ABG pH POC ABG pCO2 POC ABG pO2 Sodium Potassium Chloride Carbon Dioxide BUN Creatinine Glucose POC Glucose 146 H 148 H Calcium Magnesium Direct Bilirubin AST ALT Alkaline Phosphatase Total Creatine Kinase CK-MB (CK-2) CK-MB (CK-2) Rel Index Troponin T C-Reactive Protein Total Protein Albumin Triglycerides Ur Specific [place] Urine WBC (Auto) Miscellaneous Test 04/16/17 04/16/17 04/16/17 03:17 05:19 11:13 WBC RBC Hgb Hct MCV MCH RDW Plt Count Lymph % (Auto) [place] % (Auto) Eos % (Auto) Baso % (Auto) Lymph # Baso # Seg Neutrophils % Lymphocytes % (Manual) Monocytes % (Manual) Nucleated RBC % Seg Neutrophils # Seg Neutrophils # Man Monocytes # (Manual) PT INR Activated Clotting Time POC ABG pH POC ABG pCO2 POC ABG pO2 Sodium 149 H Potassium Chloride 111.1 H Carbon Dioxide 20 L BUN 27 H Creatinine 0.3 L Glucose 156 H POC Glucose 171 H 169 H Calcium 8.3 L Magnesium Direct Bilirubin AST ALT Alkaline Phosphatase Total Creatine Kinase CK-MB (CK-2) CK-MB (CK-2) Rel Index Troponin T C-Reactive Protein Total Protein Albumin Triglycerides Ur Specific [place] Urine WBC (Auto) Miscellaneous Test 04/16/17 04/17/17 04/17/17 17:03 00:00 05:09 WBC RBC Hgb Hct MCV MCH RDW Plt Count Lymph % (Auto) [place] % (Auto) Eos % (Auto) Baso % (Auto) Lymph # Baso # Seg Neutrophils % Lymphocytes % (Manual) Monocytes % (Manual) Nucleated RBC % Seg Neutrophils # Seg Neutrophils # Man Monocytes # (Manual) PT INR Activated Clotting Time POC ABG pH POC ABG pCO2 POC ABG pO2 Sodium Potassium Chloride Carbon Dioxide BUN Creatinine Glucose POC Glucose 151 H 165 H 145 H Calcium Magnesium Direct Bilirubin AST ALT Alkaline Phosphatase Total Creatine Kinase CK-MB (CK-2) CK-MB (CK-2) Rel Index Troponin T C-Reactive Protein Total Protein Albumin Triglycerides Ur Specific [place] Urine WBC (Auto) Miscellaneous Test 04/17/17 04/17/17 04/18/17 11:38 17:47 00:01 WBC RBC Hgb Hct MCV MCH RDW Plt Count Lymph % (Auto) [place] % (Auto) Eos % (Auto) Baso % (Auto) Lymph # Baso # Seg Neutrophils % Lymphocytes % (Manual) Monocytes % (Manual) Nucleated RBC % Seg Neutrophils # Seg Neutrophils # Man Monocytes # (Manual) PT INR Activated Clotting Time POC ABG pH POC ABG pCO2 POC ABG pO2 Sodium Potassium Chloride Carbon Dioxide BUN Creatinine Glucose POC Glucose 170 H 161 H 131 H Calcium Magnesium Direct Bilirubin AST ALT Alkaline Phosphatase Total Creatine Kinase CK-MB (CK-2) CK-MB (CK-2) Rel Index Troponin T C-Reactive Protein Total Protein Albumin Triglycerides Ur Specific [place] Urine WBC (Auto) Miscellaneous Test 04/18/17 04/18/17 04/18/17 03:55 03:55 05:30 WBC RBC 3.05 L Hgb 9.8 L Hct 29.0 L MCV 95 H MCH RDW Plt Count 113 L Lymph % (Auto) [place] % (Auto) Eos % (Auto) 5.3 H Baso % (Auto) Lymph # Baso # Seg Neutrophils % 71.5 H Lymphocytes % (Manual) Monocytes % (Manual) Nucleated RBC % Seg Neutrophils # Seg Neutrophils # Man Monocytes # (Manual) PT INR Activated Clotting Time POC ABG pH 7.460 H POC ABG pCO2 30.8 L POC ABG pO2 129 H Sodium Potassium Chloride Carbon Dioxide 21 L BUN 25 H Creatinine 0.4 L Glucose 123 H POC Glucose Calcium 8.3 L Magnesium Direct Bilirubin AST ALT Alkaline Phosphatase Total Creatine Kinase CK-MB (CK-2) CK-MB (CK-2) Rel Index Troponin T C-Reactive Protein Total Protein Albumin Triglycerides Ur Specific [place] Urine WBC (Auto) Miscellaneous Test 04/18/17 04/18/17 04/19/17 17:10 23:40 04:36 WBC RBC 3.21 L Hgb 10.2 L Hct 30.4 L MCV 95 H MCH RDW Plt Count 131 L Lymph % (Auto) 12.1 L [place] % (Auto) Eos % (Auto) 4.7 H Baso % (Auto) 2.4 H Lymph # 0.9 L Baso # 0.2 H Seg Neutrophils % 75.0 H Lymphocytes % (Manual) Monocytes % (Manual) Nucleated RBC % Seg Neutrophils # Seg Neutrophils # Man Monocytes # (Manual) PT INR Activated Clotting Time POC ABG pH POC ABG pCO2 POC ABG pO2 Sodium Potassium Chloride Carbon Dioxide BUN Creatinine Glucose POC Glucose 135 H 157 H Calcium Magnesium Direct Bilirubin AST ALT Alkaline Phosphatase Total Creatine Kinase CK-MB (CK-2) CK-MB (CK-2) Rel Index Troponin T C-Reactive Protein Total Protein Albumin Triglycerides Ur Specific [place] Urine WBC (Auto) Miscellaneous Test 04/19/17 04/19/17 04/19/17 04:36 05:12 06:50 WBC RBC Hgb Hct MCV MCH RDW Plt Count Lymph % (Auto) [place] % (Auto) Eos % (Auto) Baso % (Auto) Lymph # Baso # Seg Neutrophils % Lymphocytes % (Manual) Monocytes % (Manual) Nucleated RBC % Seg Neutrophils # Seg Neutrophils # Man Monocytes # (Manual) PT INR Activated Clotting Time POC ABG pH 7.516 H POC ABG pCO2 28.0 L POC ABG pO2 Sodium Potassium Chloride Carbon Dioxide 21 L BUN 23 H Creatinine 0.2 L Glucose 137 H POC Glucose 131 H Calcium 7.9 L Magnesium Direct Bilirubin AST ALT Alkaline Phosphatase Total Creatine Kinase CK-MB (CK-2) CK-MB (CK-2) Rel Index Troponin T C-Reactive Protein Total Protein Albumin Triglycerides Ur Specific [place] Urine WBC (Auto) Miscellaneous Test 04/19/17 04/19/17 04/20/17 12:36 17:42 00:12 WBC RBC Hgb Hct MCV MCH RDW Plt Count Lymph % (Auto) [place] % (Auto) Eos % (Auto) Baso % (Auto) Lymph # Baso # Seg Neutrophils % Lymphocytes % (Manual) Monocytes % (Manual) Nucleated RBC % Seg Neutrophils # Seg Neutrophils # Man Monocytes # (Manual) PT INR Activated Clotting Time POC ABG pH POC ABG pCO2 POC ABG pO2 Sodium Potassium Chloride Carbon Dioxide BUN Creatinine Glucose POC Glucose 128 H 140 H 132 H Calcium Magnesium Direct Bilirubin AST ALT Alkaline Phosphatase Total Creatine Kinase CK-MB (CK-2) CK-MB (CK-2) Rel Index Troponin T C-Reactive Protein Total Protein Albumin Triglycerides Ur Specific [place] Urine WBC (Auto) Miscellaneous Test 04/20/17 04/20/17 04/20/17 03:35 03:35 05:10 WBC RBC 3.34 L Hgb 10.4 L Hct 31.6 L MCV 95 H MCH RDW Plt Count Lymph % (Auto) 12.9 L [place] % (Auto) Eos % (Auto) Baso % (Auto) Lymph # Baso # Seg Neutrophils % 77.3 H Lymphocytes % (Manual) Monocytes % (Manual) Nucleated RBC % Seg Neutrophils # Seg Neutrophils # Man Monocytes # (Manual) PT INR Activated Clotting Time POC ABG pH POC ABG pCO2 POC ABG pO2 Sodium Potassium Chloride Carbon Dioxide BUN Creatinine 0.3 L Glucose 155 H POC Glucose 135 H Calcium 7.8 L Magnesium Direct Bilirubin AST ALT Alkaline Phosphatase Total Creatine Kinase CK-MB (CK-2) CK-MB (CK-2) Rel Index Troponin T C-Reactive Protein Total Protein Albumin Triglycerides Ur Specific [place] Urine WBC (Auto) Miscellaneous Test 04/20/17 04/20/17 04/21/17 12:49 18:21 00:05 WBC RBC Hgb Hct MCV MCH RDW Plt Count Lymph % (Auto) [place] % (Auto) Eos % (Auto) Baso % (Auto) Lymph # Baso # Seg Neutrophils % Lymphocytes % (Manual) Monocytes % (Manual) Nucleated RBC % Seg Neutrophils # Seg Neutrophils # Man Monocytes # (Manual) PT INR Activated Clotting Time POC ABG pH POC ABG pCO2 POC ABG pO2 Sodium Potassium Chloride Carbon Dioxide BUN Creatinine Glucose POC Glucose 155 H 165 H 141 H Calcium Magnesium Direct Bilirubin AST ALT Alkaline Phosphatase Total Creatine Kinase CK-MB (CK-2) CK-MB (CK-2) Rel Index Troponin T C-Reactive Protein Total Protein Albumin Triglycerides Ur Specific [place] Urine WBC (Auto) Miscellaneous Test 04/21/17 04/21/17 04/21/17 06:00 12:11 17:04 WBC RBC Hgb Hct MCV MCH RDW Plt Count Lymph % (Auto) [place] % (Auto) Eos % (Auto) Baso % (Auto) Lymph # Baso # Seg Neutrophils % Lymphocytes % (Manual) Monocytes % (Manual) Nucleated RBC % Seg Neutrophils # Seg Neutrophils # Man Monocytes # (Manual) PT INR Activated Clotting Time POC ABG pH POC ABG pCO2 POC ABG pO2 Sodium Potassium Chloride Carbon Dioxide BUN Creatinine Glucose POC Glucose 152 H 165 H 156 H Calcium Magnesium Direct Bilirubin AST ALT Alkaline Phosphatase Total Creatine Kinase CK-MB (CK-2) CK-MB (CK-2) Rel Index Troponin T C-Reactive Protein Total Protein Albumin Triglycerides Ur Specific [place] Urine WBC (Auto) Miscellaneous Test 04/21/17 04/21/17 04/22/17 22:00 23:59 05:49 WBC RBC Hgb Hct MCV MCH RDW Plt Count Lymph % (Auto) [place] % (Auto) Eos % (Auto) Baso % (Auto) Lymph # Baso # Seg Neutrophils % Lymphocytes % (Manual) Monocytes % (Manual) Nucleated RBC % Seg Neutrophils # Seg Neutrophils # Man Monocytes # (Manual) PT INR Activated Clotting Time POC ABG pH POC ABG pCO2 POC ABG pO2 Sodium Potassium Chloride Carbon Dioxide BUN Creatinine Glucose POC Glucose 166 H 173 H Calcium Magnesium Direct Bilirubin AST ALT Alkaline Phosphatase Total Creatine Kinase CK-MB (CK-2) CK-MB (CK-2) Rel Index Troponin T C-Reactive Protein Total Protein Albumin Triglycerides Ur Specific [place] Urine WBC (Auto) 10.0 H Miscellaneous Test 04/22/17 04/22/17 04/23/17 11:11 18:04 00:37 WBC RBC Hgb Hct MCV MCH RDW Plt Count Lymph % (Auto) [place] % (Auto) Eos % (Auto) Baso % (Auto) Lymph # Baso # Seg Neutrophils % Lymphocytes % (Manual) Monocytes % (Manual) Nucleated RBC % Seg Neutrophils # Seg Neutrophils # Man Monocytes # (Manual) PT INR Activated Clotting Time POC ABG pH POC ABG pCO2 POC ABG pO2 Sodium Potassium Chloride Carbon Dioxide BUN Creatinine Glucose POC Glucose 172 H 140 H 135 H Calcium Magnesium Direct Bilirubin AST ALT Alkaline Phosphatase Total Creatine Kinase CK-MB (CK-2) CK-MB (CK-2) Rel Index Troponin T C-Reactive Protein Total Protein Albumin Triglycerides Ur Specific [place] Urine WBC (Auto) Miscellaneous Test 04/23/17 04/23/17 04/23/17 05:33 06:20 11:10 WBC RBC 3.19 L Hgb 9.9 L Hct 30.0 L MCV MCH RDW Plt Count Lymph % (Auto) 8.0 L [place] % (Auto) Eos % (Auto) Baso % (Auto) Lymph # 0.8 L Baso # Seg Neutrophils % 84.5 H Lymphocytes % (Manual) Monocytes % (Manual) Nucleated RBC % Seg Neutrophils # 8.2 H Seg Neutrophils # Man Monocytes # (Manual) PT INR Activated Clotting Time POC ABG pH POC ABG pCO2 POC ABG pO2 Sodium Potassium Chloride Carbon Dioxide BUN Creatinine Glucose POC Glucose 134 H 134 H Calcium Magnesium Direct Bilirubin AST ALT Alkaline Phosphatase Total Creatine Kinase CK-MB (CK-2) CK-MB (CK-2) Rel Index Troponin T C-Reactive Protein Total Protein Albumin Triglycerides Ur Specific [place] Urine WBC (Auto) Miscellaneous Test 04/23/17 04/24/17 04/24/17 17:26 00:53 06:46 WBC RBC Hgb Hct MCV MCH RDW Plt Count Lymph % (Auto) [place] % (Auto) Eos % (Auto) Baso % (Auto) Lymph # Baso # Seg Neutrophils % Lymphocytes % (Manual) Monocytes % (Manual) Nucleated RBC % Seg Neutrophils # Seg Neutrophils # Man Monocytes # (Manual) PT INR Activated Clotting Time POC ABG pH POC ABG pCO2 POC ABG pO2 Sodium Potassium Chloride Carbon Dioxide BUN Creatinine Glucose POC Glucose 164 H 146 H 125 H Calcium Magnesium Direct Bilirubin AST ALT Alkaline Phosphatase Total Creatine Kinase CK-MB (CK-2) CK-MB (CK-2) Rel Index Troponin T C-Reactive Protein Total Protein Albumin Triglycerides Ur Specific [place] Urine WBC (Auto) Miscellaneous Test 04/24/17 04/24/17 04/24/17 11:55 17:50 23:36 WBC RBC Hgb Hct MCV MCH RDW Plt Count Lymph % (Auto) [place] % (Auto) Eos % (Auto) Baso % (Auto) Lymph # Baso # Seg Neutrophils % Lymphocytes % (Manual) Monocytes % (Manual) Nucleated RBC % Seg Neutrophils # Seg Neutrophils # Man Monocytes # (Manual) PT INR Activated Clotting Time POC ABG pH POC ABG pCO2 POC ABG pO2 Sodium Potassium Chloride Carbon Dioxide BUN Creatinine Glucose POC Glucose 156 H 146 H 131 H Calcium Magnesium Direct Bilirubin AST ALT Alkaline Phosphatase Total Creatine Kinase CK-MB (CK-2) CK-MB (CK-2) Rel Index Troponin T C-Reactive Protein Total Protein Albumin Triglycerides Ur Specific [place] Urine WBC (Auto) Miscellaneous Test 04/25/17 04/25/17 04/25/17 04:51 05:16 07:07 WBC RBC Hgb Hct MCV MCH RDW Plt Count Lymph % (Auto) [place] % (Auto) Eos % (Auto) Baso % (Auto) Lymph # Baso # Seg Neutrophils % Lymphocytes % (Manual) Monocytes % (Manual) Nucleated RBC % Seg Neutrophils # Seg Neutrophils # Man Monocytes # (Manual) PT INR Activated Clotting Time POC ABG pH POC ABG pCO2 POC ABG pO2 Sodium Potassium Chloride Carbon Dioxide BUN Creatinine Glucose POC Glucose 139 H Calcium Magnesium Direct Bilirubin AST 105 H ALT 204 H Alkaline Phosphatase 189 H Total Creatine Kinase CK-MB (CK-2) CK-MB (CK-2) Rel Index Troponin T C-Reactive Protein Total Protein Albumin 2.4 L Triglycerides Ur Specific [place] Urine WBC (Auto) Miscellaneous Test Flexitest 1 H 04/25/17 04/25/17 04/25/17 12:29 17:23 23:32 WBC RBC Hgb Hct MCV MCH RDW Plt Count Lymph % (Auto) [place] % (Auto) Eos % (Auto) Baso % (Auto) Lymph # Baso # Seg Neutrophils % Lymphocytes % (Manual) Monocytes % (Manual) Nucleated RBC % Seg Neutrophils # Seg Neutrophils # Man Monocytes # (Manual) PT INR Activated Clotting Time POC ABG pH POC ABG pCO2 POC ABG pO2 Sodium Potassium Chloride Carbon Dioxide BUN Creatinine Glucose POC Glucose 132 H 133 H 128 H Calcium Magnesium Direct Bilirubin AST ALT Alkaline Phosphatase Total Creatine Kinase CK-MB (CK-2) CK-MB (CK-2) Rel Index Troponin T C-Reactive Protein Total Protein Albumin Triglycerides Ur Specific [place] Urine WBC (Auto) Miscellaneous Test 04/26/17 04/26/17 04/26/17 05:24 11:28 17:09 WBC RBC Hgb Hct MCV MCH RDW Plt Count Lymph % (Auto) [place] % (Auto) Eos % (Auto) Baso % (Auto) Lymph # Baso # Seg Neutrophils % Lymphocytes % (Manual) Monocytes % (Manual) Nucleated RBC % Seg Neutrophils # Seg Neutrophils # Man Monocytes # (Manual) PT INR Activated Clotting Time POC ABG pH POC ABG pCO2 POC ABG pO2 Sodium Potassium Chloride Carbon Dioxide BUN Creatinine Glucose POC Glucose 132 H 146 H 141 H Calcium Magnesium Direct Bilirubin AST ALT Alkaline Phosphatase Total Creatine Kinase CK-MB (CK-2) CK-MB (CK-2) Rel Index Troponin T C-Reactive Protein Total Protein Albumin Triglycerides Ur Specific [place] Urine WBC (Auto) Miscellaneous Test 04/26/17 04/27/17 04/27/17 23:52 05:40 05:40 WBC RBC 3.22 L Hgb 10.0 L Hct 29.9 L MCV MCH RDW Plt Count Lymph % (Auto) [place] % (Auto) Eos % (Auto) Baso % (Auto) Lymph # Baso # Seg Neutrophils % 76.6 H Lymphocytes % (Manual) Monocytes % (Manual) Nucleated RBC % Seg Neutrophils # Seg Neutrophils # Man Monocytes # (Manual) PT INR Activated Clotting Time POC ABG pH POC ABG pCO2 POC ABG pO2 Sodium Potassium Chloride Carbon Dioxide BUN Creatinine Glucose POC Glucose 140 H Calcium Magnesium Direct Bilirubin AST 66 H ALT 137 H Alkaline Phosphatase 169 H Total Creatine Kinase CK-MB (CK-2) CK-MB (CK-2) Rel Index Troponin T C-Reactive Protein Total Protein 6.2 L Albumin 2.6 L Triglycerides Ur Specific [place] Urine WBC (Auto) Miscellaneous Test 04/27/17 04/27/17 04/27/17 05:40 06:10 11:13 WBC RBC Hgb Hct MCV MCH RDW Plt Count Lymph % (Auto) [place] % (Auto) Eos % (Auto) Baso % (Auto) Lymph # Baso # Seg Neutrophils % Lymphocytes % (Manual) Monocytes % (Manual) Nucleated RBC % Seg Neutrophils # Seg Neutrophils # Man Monocytes # (Manual) PT INR Activated Clotting Time POC ABG pH POC ABG pCO2 POC ABG pO2 Sodium Potassium Chloride Carbon Dioxide BUN Creatinine 0.2 L Glucose 139 H POC Glucose 130 H 151 H Calcium Magnesium Direct Bilirubin AST ALT Alkaline Phosphatase Total Creatine Kinase CK-MB (CK-2) CK-MB (CK-2) Rel Index Troponin T C-Reactive Protein Total Protein Albumin Triglycerides Ur Specific [place] Urine WBC (Auto) Miscellaneous Test 04/27/17 04/27/17 04/28/17 17:37 23:19 05:24 WBC RBC Hgb Hct MCV MCH RDW Plt Count Lymph % (Auto) [place] % (Auto) Eos % (Auto) Baso % (Auto) Lymph # Baso # Seg Neutrophils % Lymphocytes % (Manual) Monocytes % (Manual) Nucleated RBC % Seg Neutrophils # Seg Neutrophils # Man Monocytes # (Manual) PT INR Activated Clotting Time POC ABG pH POC ABG pCO2 POC ABG pO2 Sodium Potassium Chloride Carbon Dioxide BUN Creatinine Glucose POC Glucose 159 H 130 H 132 H Calcium Magnesium Direct Bilirubin AST ALT Alkaline Phosphatase Total Creatine Kinase CK-MB (CK-2) CK-MB (CK-2) Rel Index Troponin T C-Reactive Protein Total Protein Albumin Triglycerides Ur Specific [place] Urine WBC (Auto) Miscellaneous Test 04/28/17 04/28/17 04/28/17 11:15 17:38 23:23 WBC RBC Hgb Hct MCV MCH RDW Plt Count Lymph % (Auto) [place] % (Auto) Eos % (Auto) Baso % (Auto) Lymph # Baso # Seg Neutrophils % Lymphocytes % (Manual) Monocytes % (Manual) Nucleated RBC % Seg Neutrophils # Seg Neutrophils # Man Monocytes # (Manual) PT INR Activated Clotting Time POC ABG pH POC ABG pCO2 POC ABG pO2 Sodium Potassium Chloride Carbon Dioxide BUN Creatinine Glucose POC Glucose 162 H 133 H 138 H Calcium Magnesium Direct Bilirubin AST ALT Alkaline Phosphatase Total Creatine Kinase CK-MB (CK-2) CK-MB (CK-2) Rel Index Troponin T C-Reactive Protein Total Protein Albumin Triglycerides Ur Specific [place] Urine WBC (Auto) Miscellaneous Test 04/29/17 04/29/17 04/29/17 05:15 12:55 17:21 WBC RBC Hgb Hct MCV MCH RDW Plt Count Lymph % (Auto) [place] % (Auto) Eos % (Auto) Baso % (Auto) Lymph # Baso # Seg Neutrophils % Lymphocytes % (Manual) Monocytes % (Manual) Nucleated RBC % Seg Neutrophils # Seg Neutrophils # Man Monocytes # (Manual) PT INR Activated Clotting Time POC ABG pH POC ABG pCO2 POC ABG pO2 Sodium Potassium Chloride Carbon Dioxide BUN Creatinine Glucose POC Glucose 135 H 127 H 138 H Calcium Magnesium Direct Bilirubin AST ALT Alkaline Phosphatase Total Creatine Kinase CK-MB (CK-2) CK-MB (CK-2) Rel Index Troponin T C-Reactive Protein Total Protein Albumin Triglycerides Ur Specific [place] Urine WBC (Auto) Miscellaneous Test 04/29/17 04/30/17 04/30/17 23:52 04:55 12:22 WBC RBC Hgb Hct MCV MCH RDW Plt Count Lymph % (Auto) [place] % (Auto) Eos % (Auto) Baso % (Auto) Lymph # Baso # Seg Neutrophils % Lymphocytes % (Manual) Monocytes % (Manual) Nucleated RBC % Seg Neutrophils # Seg Neutrophils # Man Monocytes # (Manual) PT INR Activated Clotting Time POC ABG pH POC ABG pCO2 POC ABG pO2 Sodium Potassium Chloride Carbon Dioxide BUN Creatinine Glucose POC Glucose 142 H 146 H 132 H Calcium Magnesium Direct Bilirubin AST ALT Alkaline Phosphatase Total Creatine Kinase CK-MB (CK-2) CK-MB (CK-2) Rel Index Troponin T C-Reactive Protein Total Protein Albumin Triglycerides Ur Specific [place] Urine WBC (Auto) Miscellaneous Test 04/30/17 04/30/17 04/30/17 14:25 17:47 18:20 WBC RBC Hgb Hct MCV MCH RDW Plt Count Lymph % (Auto) [place] % (Auto) Eos % (Auto) Baso % (Auto) Lymph # Baso # Seg Neutrophils % Lymphocytes % (Manual) Monocytes % (Manual) Nucleated RBC % Seg Neutrophils # Seg Neutrophils # Man Monocytes # (Manual) PT INR Activated Clotting Time POC ABG pH 7.551 H POC ABG pCO2 32.7 L POC ABG pO2 Sodium Potassium Chloride Carbon Dioxide BUN 21 H Creatinine 0.2 L Glucose 141 H POC Glucose 139 H Calcium Magnesium Direct Bilirubin AST ALT Alkaline Phosphatase Total Creatine Kinase CK-MB (CK-2) CK-MB (CK-2) Rel Index Troponin T C-Reactive Protein Total Protein Albumin Triglycerides Ur Specific [place] Urine WBC (Auto) Miscellaneous Test 05/01/17 05/01/17 05/01/17 01:26 05:30 05:30 WBC RBC 3.49 L Hgb 10.3 L Hct 31.9 L MCV MCH RDW Plt Count Lymph % (Auto) [place] % (Auto) 8.1 H Eos % (Auto) Baso % (Auto) Lymph # Baso # Seg Neutrophils % 71.3 H Lymphocytes % (Manual) Monocytes % (Manual) Nucleated RBC % Seg Neutrophils # Seg Neutrophils # Man Monocytes # (Manual) PT INR Activated Clotting Time POC ABG pH POC ABG pCO2 POC ABG pO2 Sodium 136 L Potassium Chloride 97.6 L Carbon Dioxide BUN Creatinine 0.2 L Glucose 123 H POC Glucose 116 H Calcium Magnesium Direct Bilirubin AST 71 H ALT 125 H Alkaline Phosphatase 158 H Total Creatine Kinase CK-MB (CK-2) CK-MB (CK-2) Rel Index Troponin T C-Reactive Protein Total Protein Albumin 2.6 L Triglycerides Ur Specific [place] Urine WBC (Auto) Miscellaneous Test 05/01/17 05/01/17 05/02/17 11:59 17:23 00:08 WBC RBC Hgb Hct MCV MCH RDW Plt Count Lymph % (Auto) [place] % (Auto) Eos % (Auto) Baso % (Auto) Lymph # Baso # Seg Neutrophils % Lymphocytes % (Manual) Monocytes % (Manual) Nucleated RBC % Seg Neutrophils # Seg Neutrophils # Man Monocytes # (Manual) PT INR Activated Clotting Time POC ABG pH POC ABG pCO2 POC ABG pO2 Sodium Potassium Chloride Carbon Dioxide BUN Creatinine Glucose POC Glucose 118 H 144 H 122 H Calcium Magnesium Direct Bilirubin AST ALT Alkaline Phosphatase Total Creatine Kinase CK-MB (CK-2) CK-MB (CK-2) Rel Index Troponin T C-Reactive Protein Total Protein Albumin Triglycerides Ur Specific [place] Urine WBC (Auto) Miscellaneous Test 05/02/17 05/02/17 05/02/17 05:50 11:21 17:48 WBC RBC Hgb Hct MCV MCH RDW Plt Count Lymph % (Auto) [place] % (Auto) Eos % (Auto) Baso % (Auto) Lymph # Baso # Seg Neutrophils % Lymphocytes % (Manual) Monocytes % (Manual) Nucleated RBC % Seg Neutrophils # Seg Neutrophils # Man Monocytes # (Manual) PT INR Activated Clotting Time POC ABG pH POC ABG pCO2 POC ABG pO2 Sodium Potassium Chloride Carbon Dioxide BUN Creatinine Glucose POC Glucose 120 H 121 H 140 H Calcium Magnesium Direct Bilirubin AST ALT Alkaline Phosphatase Total Creatine Kinase CK-MB (CK-2) CK-MB (CK-2) Rel Index Troponin T C-Reactive Protein Total Protein Albumin Triglycerides Ur Specific [place] Urine WBC (Auto) Miscellaneous Test 05/02/17 05/03/17 05/03/17 23:12 05:35 11:52 WBC RBC Hgb Hct MCV MCH RDW Plt Count Lymph % (Auto) [place] % (Auto) Eos % (Auto) Baso % (Auto) Lymph # Baso # Seg Neutrophils % Lymphocytes % (Manual) Monocytes % (Manual) Nucleated RBC % Seg Neutrophils # Seg Neutrophils # Man Monocytes # (Manual) PT INR Activated Clotting Time POC ABG pH POC ABG pCO2 POC ABG pO2 Sodium Potassium Chloride Carbon Dioxide BUN Creatinine Glucose POC Glucose 128 H 113 H 126 H Calcium Magnesium Direct Bilirubin AST ALT Alkaline Phosphatase Total Creatine Kinase CK-MB (CK-2) CK-MB (CK-2) Rel Index Troponin T C-Reactive Protein Total Protein Albumin Triglycerides Ur Specific [place] Urine WBC (Auto) Miscellaneous Test 05/03/17 05/03/17 05/04/17 17:29 23:26 04:55 WBC RBC Hgb Hct MCV MCH RDW Plt Count Lymph % (Auto) [place] % (Auto) Eos % (Auto) Baso % (Auto) Lymph # Baso # Seg Neutrophils % Lymphocytes % (Manual) Monocytes % (Manual) Nucleated RBC % Seg Neutrophils # Seg Neutrophils # Man Monocytes # (Manual) PT INR Activated Clotting Time POC ABG pH POC ABG pCO2 POC ABG pO2 Sodium Potassium Chloride Carbon Dioxide BUN Creatinine Glucose POC Glucose 141 H 129 H 126 H Calcium Magnesium Direct Bilirubin AST ALT Alkaline Phosphatase Total Creatine Kinase CK-MB (CK-2) CK-MB (CK-2) Rel Index Troponin T C-Reactive Protein Total Protein Albumin Triglycerides Ur Specific [place] Urine WBC (Auto) Miscellaneous Test 05/04/17 05/04/17 05/05/17 12:09 17:46 00:06 WBC RBC Hgb Hct MCV MCH RDW Plt Count Lymph % (Auto) Mcleod % (Auto) Eos % (Auto) Baso % (Auto) Lymph # Baso # Seg Neutrophils % Lymphocytes % (Manual) Monocytes % (Manual) Nucleated RBC % Seg Neutrophils # Seg Neutrophils # Man Monocytes # (Manual) PT INR Activated Clotting Time POC ABG pH POC ABG pCO2 POC ABG pO2 Sodium Potassium Chloride Carbon Dioxide BUN Creatinine Glucose POC Glucose 125 H 125 H 110 H Calcium Magnesium Direct Bilirubin AST ALT Alkaline Phosphatase Total Creatine Kinase CK-MB (CK-2) CK-MB (CK-2) Rel Index Troponin T C-Reactive Protein Total Protein Albumin Triglycerides Ur Specific [place] Urine WBC (Auto) Miscellaneous Test 05/05/17 05/05/17 05/05/17 05:48 11:41 16:19 WBC RBC Hgb Hct MCV MCH RDW Plt Count Lymph % (Auto) [place] % (Auto) Eos % (Auto) Baso % (Auto) Lymph # Baso # Seg Neutrophils % Lymphocytes % (Manual) Monocytes % (Manual) Nucleated RBC % Seg Neutrophils # Seg Neutrophils # Man Monocytes # (Manual) PT INR Activated Clotting Time POC ABG pH POC ABG pCO2 POC ABG pO2 Sodium Potassium Chloride Carbon Dioxide BUN Creatinine Glucose POC Glucose 124 H 122 H 120 H Calcium Magnesium Direct Bilirubin AST ALT Alkaline Phosphatase Total Creatine Kinase CK-MB (CK-2) CK-MB (CK-2) Rel Index Troponin T C-Reactive Protein Total Protein Albumin Triglycerides Ur Specific [place] Urine WBC (Auto) Miscellaneous Test 05/06/17 05/06/17 05/06/17 00:16 05:47 11:42 WBC RBC Hgb Hct MCV MCH RDW Plt Count Lymph % (Auto) [place] % (Auto) Eos % (Auto) Baso % (Auto) Lymph # Baso # Seg Neutrophils % Lymphocytes % (Manual) Monocytes % (Manual) Nucleated RBC % Seg Neutrophils # Seg Neutrophils # Man Monocytes # (Manual) PT INR Activated Clotting Time POC ABG pH POC ABG pCO2 POC ABG pO2 Sodium Potassium Chloride Carbon Dioxide BUN Creatinine Glucose POC Glucose 110 H 142 H 120 H Calcium Magnesium Direct Bilirubin AST ALT Alkaline Phosphatase Total Creatine Kinase CK-MB (CK-2) CK-MB (CK-2) Rel Index Troponin T C-Reactive Protein Total Protein Albumin Triglycerides Ur Specific [place] Urine WBC (Auto) Miscellaneous Test 05/06/17 05/07/17 05/07/17 17:46 00:07 05:28 WBC RBC Hgb Hct MCV MCH RDW Plt Count Lymph % (Auto) [place] % (Auto) Eos % (Auto) Baso % (Auto) Lymph # Baso # Seg Neutrophils % Lymphocytes % (Manual) Monocytes % (Manual) Nucleated RBC % Seg Neutrophils # Seg Neutrophils # Man Monocytes # (Manual) PT INR Activated Clotting Time POC ABG pH POC ABG pCO2 POC ABG pO2 Sodium Potassium Chloride Carbon Dioxide BUN Creatinine Glucose POC Glucose 127 H 145 H 124 H Calcium Magnesium Direct Bilirubin AST ALT Alkaline Phosphatase Total Creatine Kinase CK-MB (CK-2) CK-MB (CK-2) Rel Index Troponin T C-Reactive Protein Total Protein Albumin Triglycerides Ur Specific [place] Urine WBC (Auto) Miscellaneous Test 05/07/17 05/07/17 05/08/17 11:17 17:14 00:03 WBC RBC Hgb Hct MCV MCH RDW Plt Count Lymph % (Auto) [place] % (Auto) Eos % (Auto) Baso % (Auto) Lymph # Baso # Seg Neutrophils % Lymphocytes % (Manual) Monocytes % (Manual) Nucleated RBC % Seg Neutrophils # Seg Neutrophils # Man Monocytes # (Manual) PT INR Activated Clotting Time POC ABG pH POC ABG pCO2 POC ABG pO2 Sodium Potassium Chloride Carbon Dioxide BUN Creatinine Glucose POC Glucose 144 H 125 H 122 H Calcium Magnesium Direct Bilirubin AST ALT Alkaline Phosphatase Total Creatine Kinase CK-MB (CK-2) CK-MB (CK-2) Rel Index Troponin T C-Reactive Protein Total Protein Albumin Triglycerides Ur Specific [place] Urine WBC (Auto) Miscellaneous Test 05/08/17 05/08/17 05/08/17 05:43 12:07 18:02 WBC RBC Hgb Hct MCV MCH RDW Plt Count Lymph % (Auto) [place] % (Auto) Eos % (Auto) Baso % (Auto) Lymph # Baso # Seg Neutrophils % Lymphocytes % (Manual) Monocytes % (Manual) Nucleated RBC % Seg Neutrophils # Seg Neutrophils # Man Monocytes # (Manual) PT INR Activated Clotting Time POC ABG pH POC ABG pCO2 POC ABG pO2 Sodium Potassium Chloride Carbon Dioxide BUN Creatinine Glucose POC Glucose 117 H 114 H 129 H Calcium Magnesium Direct Bilirubin AST ALT Alkaline Phosphatase Total Creatine Kinase CK-MB (CK-2) CK-MB (CK-2) Rel Index Troponin T C-Reactive Protein Total Protein Albumin Triglycerides Ur Specific [place] Urine WBC (Auto) Miscellaneous Test 05/08/17 05/09/17 05/09/17 23:53 04:19 05:14 WBC RBC Hgb Hct MCV MCH RDW Plt Count Lymph % (Auto) [place] % (Auto) Eos % (Auto) Baso % (Auto) Lymph # Baso # Seg Neutrophils % Lymphocytes % (Manual) Monocytes % (Manual) Nucleated RBC % Seg Neutrophils # Seg Neutrophils # Man Monocytes # (Manual) PT INR Activated Clotting Time POC ABG pH 7.524 H POC ABG pCO2 34.7 L POC ABG pO2 107 H Sodium Potassium Chloride Carbon Dioxide BUN Creatinine Glucose POC Glucose 125 H 118 H Calcium Magnesium Direct Bilirubin AST ALT Alkaline Phosphatase Total Creatine Kinase CK-MB (CK-2) CK-MB (CK-2) Rel Index Troponin T C-Reactive Protein Total Protein Albumin Triglycerides Ur Specific [place] Urine WBC (Auto) Miscellaneous Test 05/10/17 05/11/17 05/11/17 23:54 05:48 23:50 WBC RBC Hgb Hct MCV MCH RDW Plt Count Lymph % (Auto) [place] % (Auto) Eos % (Auto) Baso % (Auto) Lymph # Baso # Seg Neutrophils % Lymphocytes % (Manual) Monocytes % (Manual) Nucleated RBC % Seg Neutrophils # Seg Neutrophils # Man Monocytes # (Manual) PT INR Activated Clotting Time POC ABG pH POC ABG pCO2 POC ABG pO2 Sodium Potassium Chloride Carbon Dioxide BUN Creatinine Glucose POC Glucose 126 H 137 H 130 H Calcium Magnesium Direct Bilirubin AST ALT Alkaline Phosphatase Total Creatine Kinase CK-MB (CK-2) CK-MB (CK-2) Rel Index Troponin T C-Reactive Protein Total Protein Albumin Triglycerides Ur Specific [place] Urine WBC (Auto) Miscellaneous Test 05/12/17 05/12/17 05/12/17 05:48 11:33 18:00 WBC RBC Hgb Hct MCV MCH RDW Plt Count Lymph % (Auto) [place] % (Auto) Eos % (Auto) Baso % (Auto) Lymph # Baso # Seg Neutrophils % Lymphocytes % (Manual) Monocytes % (Manual) Nucleated RBC % Seg Neutrophils # Seg Neutrophils # Man Monocytes # (Manual) PT INR Activated Clotting Time POC ABG pH POC ABG pCO2 POC ABG pO2 Sodium Potassium Chloride Carbon Dioxide BUN Creatinine Glucose POC Glucose 126 H 116 H 131 H Calcium Magnesium Direct Bilirubin AST ALT Alkaline Phosphatase Total Creatine Kinase CK-MB (CK-2) CK-MB (CK-2) Rel Index Troponin T C-Reactive Protein Total Protein Albumin Triglycerides Ur Specific [place] Urine WBC (Auto) Miscellaneous Test 05/14/17 05/15/17 05/15/17 11:45 11:27 17:42 WBC RBC Hgb Hct MCV MCH RDW Plt Count Lymph % (Auto) [place] % (Auto) Eos % (Auto) Baso % (Auto) Lymph # Baso # Seg Neutrophils % Lymphocytes % (Manual) Monocytes % (Manual) Nucleated RBC % Seg Neutrophils # Seg Neutrophils # Man Monocytes # (Manual) PT INR Activated Clotting Time POC ABG pH POC ABG pCO2 POC ABG pO2 Sodium Potassium Chloride Carbon Dioxide BUN Creatinine Glucose POC Glucose 123 H 129 H 125 H Calcium Magnesium Direct Bilirubin AST ALT Alkaline Phosphatase Total Creatine Kinase CK-MB (CK-2) CK-MB (CK-2) Rel Index Troponin T C-Reactive Protein Total Protein Albumin Triglycerides Ur Specific [place] Urine WBC (Auto) Miscellaneous Test 05/16/17 05/16/17 05/17/17 00:29 06:50 03:45 WBC RBC Hgb 11.7 L Hct 34.8 L MCV MCH RDW 15.5 H Plt Count Lymph % (Auto) [place] % (Auto) 7.7 H Eos % (Auto) Baso % (Auto) Lymph # Baso # Seg Neutrophils % 73.7 H Lymphocytes % (Manual) Monocytes % (Manual) Nucleated RBC % Seg Neutrophils # Seg Neutrophils # Man Monocytes # (Manual) PT INR Activated Clotting Time POC ABG pH POC ABG pCO2 POC ABG pO2 Sodium Potassium Chloride Carbon Dioxide BUN Creatinine Glucose POC Glucose 141 H 138 H Calcium Magnesium Direct Bilirubin AST ALT Alkaline Phosphatase Total Creatine Kinase CK-MB (CK-2) CK-MB (CK-2) Rel Index Troponin T C-Reactive Protein Total Protein Albumin Triglycerides Ur Specific [place] Urine WBC (Auto) Miscellaneous Test 05/17/17 05/20/17 05/23/17 03:45 17:31 23:09 WBC RBC Hgb Hct MCV MCH RDW Plt Count Lymph % (Auto) [place] % (Auto) Eos % (Auto) Baso % (Auto) Lymph # Baso # Seg Neutrophils % Lymphocytes % (Manual) Monocytes % (Manual) Nucleated RBC % Seg Neutrophils # Seg Neutrophils # Man Monocytes # (Manual) PT INR Activated Clotting Time POC ABG pH POC ABG pCO2 POC ABG pO2 Sodium Potassium Chloride Carbon Dioxide BUN Creatinine 0.2 L Glucose 131 H POC Glucose 116 H 122 H Calcium Magnesium Direct Bilirubin AST ALT Alkaline Phosphatase Total Creatine Kinase CK-MB (CK-2) CK-MB (CK-2) Rel Index Troponin T C-Reactive Protein Total Protein Albumin Triglycerides Ur Specific [place] Urine WBC (Auto) Miscellaneous Test 05/24/17 05/26/17 05/27/17 05:37 05:23 01:16 WBC RBC Hgb Hct MCV MCH RDW Plt Count Lymph % (Auto) [place] % (Auto) Eos % (Auto) Baso % (Auto) Lymph # Baso # Seg Neutrophils % Lymphocytes % (Manual) Monocytes % (Manual) Nucleated RBC % Seg Neutrophils # Seg Neutrophils # Man Monocytes # (Manual) PT INR Activated Clotting Time POC ABG pH POC ABG pCO2 POC ABG pO2 Sodium Potassium Chloride Carbon Dioxide BUN Creatinine Glucose POC Glucose 139 H 108 H 126 H Calcium Magnesium Direct Bilirubin AST ALT Alkaline Phosphatase Total Creatine Kinase CK-MB (CK-2) CK-MB (CK-2) Rel Index Troponin T C-Reactive Protein Total Protein Albumin Triglycerides Ur Specific [place] Urine WBC (Auto) Miscellaneous Test 03/06/1105/27/17 05/29/17 05:33 21:49 04:37 WBC RBC Hgb Hct MCV MCH RDW 15.5 H Plt Count Lymph % (Auto) [place] % (Auto) Eos % (Auto) Baso % (Auto) Lymph # Baso # Seg Neutrophils % Lymphocytes % (Manual) Monocytes % (Manual) Nucleated RBC % Seg Neutrophils # Seg Neutrophils # Man Monocytes # (Manual) PT INR Activated Clotting Time POC ABG pH POC ABG pCO2 POC ABG pO2 Sodium Potassium Chloride Carbon Dioxide BUN Creatinine Glucose POC Glucose 129 H 110 H Calcium Magnesium Direct Bilirubin AST ALT Alkaline Phosphatase Total Creatine Kinase CK-MB (CK-2) CK-MB (CK-2) Rel Index Troponin T C-Reactive Protein Total Protein Albumin Triglycerides Ur Specific [place] Urine WBC (Auto) Miscellaneous Test 05/29/17 06/01/17 04:37 05:28 WBC RBC Hgb Hct MCV MCH RDW Plt Count Lymph % (Auto) [place] % (Auto) Eos % (Auto) Baso % (Auto) Lymph # Baso # Seg Neutrophils % Lymphocytes % (Manual) Monocytes % (Manual) Nucleated RBC % Seg Neutrophils # Seg Neutrophils # Man Monocytes # (Manual) PT INR Activated Clotting Time POC ABG pH POC ABG pCO2 POC ABG pO2 Sodium Potassium Chloride 97.6 L Carbon Dioxide BUN Creatinine 0.2 L Glucose 121 H POC Glucose 133 H Calcium Magnesium Direct Bilirubin AST ALT Alkaline Phosphatase Total Creatine Kinase CK-MB (CK-2) CK-MB (CK-2) Rel Index Troponin T C-Reactive Protein Total Protein Albumin Triglycerides Ur Specific [place] Urine WBC (Auto) Miscellaneous Test
[2017-06-03] MEDS: PLAVIX PO SCH (10:37)
[2017-06-03] MEDS: ASPIRIN PO SCH (10:37)
[2017-06-03] MEDS: PROTONIX FEEDTUBE SCH (10:37)
[2017-06-03] MEDS: ZESTRIL PO SCH (10:39)
[2017-06-04] MEDS: ZESTRIL PO SCH (10:19)
[2017-06-04] MEDS: LOPRESSOR PO SCH ×3 (10:19→21:00)
[2017-06-04] MEDS: ASPIRIN PO SCH (10:25)
[2017-06-04] MEDS: PROTONIX FEEDTUBE SCH (10:25)
[2017-06-04] MEDS: PLAVIX PO SCH (10:25)
[2017-06-04] MEDS: ELIQUIS PO SCH ×2 (10:27→21:00)
[2017-06-04] MEDS: CORDARONE PO SCH ×2 (10:27→21:00)
--- NOTE | 2017-06-04 11:57 | Progress Note ---
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 No new recommendations for today. Patient remains full code and will continue PSV as tolerated with hopes of weaning to T-piece. He continues to have Apnea and fails PSV trials. Family has been made aware of this. Patient is a full code. Hold PSV trials given recent cardiac instability this am 1. PSV as tolerated with a goal to get to T-piece 2. Once tolerates T-piece for 24 hours, can consider transfer to floor, this is highly unlikely. 3. reviewed neurology note and agree with assessment 4. Continue all other cardiac meds 5. Overall prognosis still remains poor given amount of downtime during arrest. 6. Family meeting held, they feel the patient will overcome this current state as they have had other family members do the same. Very in depth conversation about the prognosis and current clinical state. I've made my best attempt to help them understand. Neuro agrees. Will continue supportive measures and attempt to wean. CCT 31 minutes. Subjective Date of service: 06/04/17 Principal diagnosis: coma,ARV,s/p arrest Interval history: No acute events overnight. Having spells of bradycardia this am. No family at bedside. Mental state is unchanged. Objective Vital Signs - 12hr 06/03/17 06/04/17 06/04/17 23:00 00:00 00:48 Temperature 99.3 F Pulse Rate 65 67 66 Pulse Rate [ 74 From Monitor] Respiratory 17 17 Rate Blood Pressure 111/73 116/78 109/74 O2 Sat by Pulse 96 99 99 Oximetry O2 Sat by Pulse Oximetry [ Assessment] 06/04/17 06/04/17 06/04/17 00:58 01:00 03:00 Temperature Pulse Rate 67 64 Pulse Rate [ From Monitor] Respiratory 15 16 Rate Blood Pressure 114/76 113/70 O2 Sat by Pulse 94 93 Oximetry O2 Sat by Pulse 98 Oximetry [ Assessment] 06/04/17 06/04/17 06/04/17 03:05 04:00 05:00 Temperature 99.8 F H Pulse Rate 67 67 66 Pulse Rate [ 60 From Monitor] Respiratory 16 12 Rate Blood Pressure 113/70 117/80 113/78 O2 Sat by Pulse 94 98 98 Oximetry O2 Sat by Pulse Oximetry [ Assessment] 06/04/17 06/04/17 06/04/17 06:00 07:00 08:00 Temperature 98.2 F Pulse Rate 59 L 80 62 Pulse Rate [ From Monitor] Respiratory 14 15 14 Rate Blood Pressure 83/50 107/60 86/48 O2 Sat by Pulse 98 98 97 Oximetry O2 Sat by Pulse 99 Oximetry [ Assessment] 06/04/17 06/04/17 06/04/17 09:00 10:00 10:19 Temperature Pulse Rate 57 L 80 60 Pulse Rate [ From Monitor] Respiratory 14 14 Rate Blood Pressure 94/54 97/57 97/57 O2 Sat by Pulse 100 97 Oximetry O2 Sat by Pulse Oximetry [ Assessment] Constitutional: no acute distress, comatose Eyes: non-icteric ENT: oropharynx moist Neck: supple, other (tracheotomy ) Effort: normal Ascultation: Bilateral: clear, diminished breath sounds, other (coarse BS bilaterally) Percussion: Bilateral: not dull Cardiovascular: regular rate and rhythm Gastrointestinal: normoactive bowel sounds, soft, non-tender, non-distended Integumentary: normal Extremities: no cyanosis, no edema, pink and warm Neurologic: other (nonresponsive with flaccid extremities) Psychiatric: other (eyes open spontaneously but does not follow any voice commands, otherwise nonresponsive except for pain) CBC and BMP: 05/29/17 04:37 05/29/17 04:37 ABG, PT/INR, D-dimer: ABG POC ABG pH 7.524 (7.35-7.45) H 05/09/17 04:19 POC ABG pCO2 34.7 (35-45) L 05/09/17 04:19 POC ABG pO2 107 (80-105) H 05/09/17 04:19 POC ABG HCO3 28.6 05/09/17 04:19 POC ABG Total CO2 30 05/09/17 04:19 POC ABG O2 Sat 99 05/09/17 04:19 PT/INR, D-dimer PT 14.9 Sec. (12.2-14.9) 04/10/17 04:16 INR 1.11 (0.87-1.13) 04/10/17 04:16 Abnormal lab findings: Abnormal Labs 03/29/17 03/29/17 03/29/17 11:35 11:35 11:40 WBC RBC Hgb Hct MCV 98 H MCH 33 H RDW Plt Count Lymph % (Auto) [place] % (Auto) Eos % (Auto) Baso % (Auto) Lymph # Baso # Seg Neutrophils % Lymphocytes % (Manual) Monocytes % (Manual) 9.0 H Nucleated RBC % 1.0 H Seg Neutrophils # Seg Neutrophils # Man Monocytes # (Manual) 0.9 H PT 15.8 H INR 1.20 H Activated Clotting Time POC ABG pH POC ABG pCO2 POC ABG pO2 Sodium Potassium 2.7 L* Chloride 95.3 L Carbon Dioxide 17 L BUN Creatinine Glucose 435 H POC Glucose Calcium Magnesium Direct Bilirubin AST ALT Alkaline Phosphatase Total Creatine Kinase CK-MB (CK-2) CK-MB (CK-2) Rel Index Troponin T C-Reactive Protein Total Protein 6.1 L Albumin 3.5 L Triglycerides Ur Specific [place] Urine WBC (Auto) Miscellaneous Test 03/29/17 03/29/17 03/29/17 12:34 13:10 13:25 WBC RBC Hgb Hct MCV MCH RDW Plt Count Lymph % (Auto) [place] % (Auto) Eos % (Auto) Baso % (Auto) Lymph # Baso # Seg Neutrophils % Lymphocytes % (Manual) Monocytes % (Manual) Nucleated RBC % Seg Neutrophils # Seg Neutrophils # Man Monocytes # (Manual) PT INR Activated Clotting Time 142 H 169 H 175 H POC ABG pH POC ABG pCO2 POC ABG pO2 Sodium Potassium Chloride Carbon Dioxide BUN Creatinine Glucose POC Glucose Calcium Magnesium Direct Bilirubin AST ALT Alkaline Phosphatase Total Creatine Kinase CK-MB (CK-2) CK-MB (CK-2) Rel Index Troponin T C-Reactive Protein Total Protein Albumin Triglycerides Ur Specific [place] Urine WBC (Auto) Miscellaneous Test 03/29/17 03/29/17 03/29/17 14:50 15:18 19:52 WBC RBC Hgb Hct MCV MCH RDW Plt Count Lymph % (Auto) [place] % (Auto) Eos % (Auto) Baso % (Auto) Lymph # Baso # Seg Neutrophils % Lymphocytes % (Manual) Monocytes % (Manual) Nucleated RBC % Seg Neutrophils # Seg Neutrophils # Man Monocytes # (Manual) PT INR Activated Clotting Time 175 H POC ABG pH 7.293 L POC ABG pCO2 POC ABG pO2 602 H Sodium Potassium Chloride Carbon Dioxide BUN Creatinine Glucose POC Glucose Calcium Magnesium Direct Bilirubin AST ALT Alkaline Phosphatase Total Creatine Kinase 7263 H CK-MB (CK-2) > 300.0 H CK-MB (CK-2) Rel Index 4.1 H Troponin T 8.080 H* D C-Reactive Protein Total Protein Albumin Triglycerides 195 H Ur Specific [place] Urine WBC (Auto) Miscellaneous Test 03/30/17 03/30/17 03/30/17 03:50 03:50 06:19 WBC 19.5 H RBC Hgb Hct MCV MCH RDW Plt Count Lymph % (Auto) [place] % (Auto) Eos % (Auto) Baso % (Auto) Lymph # Baso # Seg Neutrophils % Lymphocytes % (Manual) 7.0 L Monocytes % (Manual) Nucleated RBC % Seg Neutrophils # Seg Neutrophils # Man 12.7 H Monocytes # (Manual) 1.4 H PT INR Activated Clotting Time POC ABG pH POC ABG pCO2 28.2 L POC ABG pO2 108 H Sodium Potassium Chloride 108.9 H Carbon Dioxide 15 L BUN 25 H Creatinine Glucose 158 H POC Glucose Calcium 8.1 L Magnesium Direct Bilirubin AST ALT Alkaline Phosphatase Total Creatine Kinase 7963 H CK-MB (CK-2) > 300.0 H CK-MB (CK-2) Rel Index Troponin T 6.850 H* C-Reactive Protein Total Protein Albumin Triglycerides Ur Specific [place] Urine WBC (Auto) Miscellaneous Test 03/30/17 03/30/17 03/31/17 09:45 16:04 02:19 WBC RBC Hgb Hct MCV MCH RDW Plt Count Lymph % (Auto) [place] % (Auto) Eos % (Auto) Baso % (Auto) Lymph # Baso # Seg Neutrophils % Lymphocytes % (Manual) Monocytes % (Manual) Nucleated RBC % Seg Neutrophils # Seg Neutrophils # Man Monocytes # (Manual) PT INR Activated Clotting Time POC ABG pH POC ABG pCO2 POC ABG pO2 Sodium Potassium Chloride Carbon Dioxide BUN Creatinine Glucose POC Glucose 137 H Calcium Magnesium Direct Bilirubin AST ALT Alkaline Phosphatase Total Creatine Kinase CK-MB (CK-2) CK-MB (CK-2) Rel Index Troponin T C-Reactive Protein 21.80 H Total Protein Albumin Triglycerides Ur Specific [place] 1.031 H Urine WBC (Auto) Miscellaneous Test 03/31/17 03/31/17 03/31/17 03:57 06:54 09:22 WBC RBC Hgb Hct MCV MCH RDW Plt Count Lymph % (Auto) [place] % (Auto) Eos % (Auto) Baso % (Auto) Lymph # Baso # Seg Neutrophils % Lymphocytes % (Manual) Monocytes % (Manual) Nucleated RBC % Seg Neutrophils # Seg Neutrophils # Man Monocytes # (Manual) PT INR Activated Clotting Time POC ABG pH 7.475 H POC ABG pCO2 25.4 L POC ABG pO2 62 L Sodium Potassium Chloride Carbon Dioxide 19 L BUN 22 H Creatinine 0.6 L Glucose 148 H POC Glucose 143 H Calcium 8.3 L Magnesium Direct Bilirubin AST ALT Alkaline Phosphatase Total Creatine Kinase CK-MB (CK-2) CK-MB (CK-2) Rel Index Troponin T C-Reactive Protein Total Protein Albumin Triglycerides Ur Specific [place] Urine WBC (Auto) Miscellaneous Test 03/31/17 03/31/17 03/31/17 11:40 17:47 23:38 WBC RBC Hgb Hct MCV MCH RDW Plt Count Lymph % (Auto) [place] % (Auto) Eos % (Auto) Baso % (Auto) Lymph # Baso # Seg Neutrophils % Lymphocytes % (Manual) Monocytes % (Manual) Nucleated RBC % Seg Neutrophils # Seg Neutrophils # Man Monocytes # (Manual) PT INR Activated Clotting Time POC ABG pH POC ABG pCO2 POC ABG pO2 Sodium Potassium Chloride Carbon Dioxide BUN Creatinine Glucose POC Glucose 127 H 137 H 148 H Calcium Magnesium Direct Bilirubin AST ALT Alkaline Phosphatase Total Creatine Kinase CK-MB (CK-2) CK-MB (CK-2) Rel Index Troponin T C-Reactive Protein Total Protein Albumin Triglycerides Ur Specific [place] Urine WBC (Auto) Miscellaneous Test 04/01/17 04/01/17 04/01/17 04:29 05:01 11:54 WBC RBC Hgb Hct MCV MCH RDW Plt Count Lymph % (Auto) [place] % (Auto) Eos % (Auto) Baso % (Auto) Lymph # Baso # Seg Neutrophils % Lymphocytes % (Manual) Monocytes % (Manual) Nucleated RBC % Seg Neutrophils # Seg Neutrophils # Man Monocytes # (Manual) PT INR Activated Clotting Time POC ABG pH 7.513 H POC ABG pCO2 22.1 L POC ABG pO2 64 L Sodium Potassium Chloride Carbon Dioxide BUN Creatinine Glucose POC Glucose 121 H Calcium Magnesium Direct Bilirubin AST ALT Alkaline Phosphatase Total Creatine Kinase CK-MB (CK-2) CK-MB (CK-2) Rel Index Troponin T C-Reactive Protein Total Protein Albumin Triglycerides 151 H Ur Specific [place] Urine WBC (Auto) Miscellaneous Test 04/01/17 04/02/17 04/02/17 18:17 00:11 04:52 WBC RBC Hgb Hct MCV MCH RDW Plt Count Lymph % (Auto) [place] % (Auto) Eos % (Auto) Baso % (Auto) Lymph # Baso # Seg Neutrophils % Lymphocytes % (Manual) Monocytes % (Manual) Nucleated RBC % Seg Neutrophils # Seg Neutrophils # Man Monocytes # (Manual) PT INR Activated Clotting Time POC ABG pH 7.524 H POC ABG pCO2 25.5 L POC ABG pO2 66 L Sodium Potassium Chloride Carbon Dioxide BUN Creatinine Glucose POC Glucose 117 H 122 H Calcium Magnesium Direct Bilirubin AST ALT Alkaline Phosphatase Total Creatine Kinase CK-MB (CK-2) CK-MB (CK-2) Rel Index Troponin T C-Reactive Protein Total Protein Albumin Triglycerides Ur Specific [place] Urine WBC (Auto) Miscellaneous Test 04/02/17 04/02/17 04/02/17 05:18 10:41 12:19 WBC RBC Hgb Hct MCV MCH RDW Plt Count Lymph % (Auto) [place] % (Auto) Eos % (Auto) Baso % (Auto) Lymph # Baso # Seg Neutrophils % Lymphocytes % (Manual) Monocytes % (Manual) Nucleated RBC % Seg Neutrophils # Seg Neutrophils # Man Monocytes # (Manual) PT INR Activated Clotting Time POC ABG pH 7.534 H POC ABG pCO2 27.4 L POC ABG pO2 Sodium Potassium Chloride Carbon Dioxide BUN Creatinine Glucose POC Glucose 132 H 129 H Calcium Magnesium Direct Bilirubin AST ALT Alkaline Phosphatase Total Creatine Kinase CK-MB (CK-2) CK-MB (CK-2) Rel Index Troponin T C-Reactive Protein Total Protein Albumin Triglycerides Ur Specific [place] Urine WBC (Auto) Miscellaneous Test 04/02/17 04/03/17 04/03/17 18:05 00:08 05:09 WBC RBC Hgb Hct MCV MCH RDW Plt Count Lymph % (Auto) [place] % (Auto) Eos % (Auto) Baso % (Auto) Lymph # Baso # Seg Neutrophils % Lymphocytes % (Manual) Monocytes % (Manual) Nucleated RBC % Seg Neutrophils # Seg Neutrophils # Man Monocytes # (Manual) PT INR Activated Clotting Time POC ABG pH 7.455 H POC ABG pCO2 33.2 L POC ABG pO2 120 H Sodium Potassium Chloride Carbon Dioxide BUN Creatinine Glucose POC Glucose 136 H 128 H Calcium Magnesium Direct Bilirubin AST ALT Alkaline Phosphatase Total Creatine Kinase CK-MB (CK-2) CK-MB (CK-2) Rel Index Troponin T C-Reactive Protein Total Protein Albumin Triglycerides Ur Specific [place] Urine WBC (Auto) Miscellaneous Test 04/03/17 04/03/17 04/03/17 06:32 11:54 12:16 WBC 11.9 H RBC Hgb Hct MCV MCH RDW Plt Count 125 L Lymph % (Auto) 4.8 L [place] % (Auto) Eos % (Auto) Baso % (Auto) Lymph # 0.6 L Baso # Seg Neutrophils % 86.7 H Lymphocytes % (Manual) Monocytes % (Manual) Nucleated RBC % Seg Neutrophils # 10.3 H Seg Neutrophils # Man Monocytes # (Manual) PT INR Activated Clotting Time POC ABG pH POC ABG pCO2 POC ABG pO2 Sodium Potassium Chloride Carbon Dioxide BUN Creatinine Glucose POC Glucose 138 H 143 H Calcium Magnesium Direct Bilirubin AST ALT Alkaline Phosphatase Total Creatine Kinase CK-MB (CK-2) CK-MB (CK-2) Rel Index Troponin T C-Reactive Protein Total Protein Albumin Triglycerides Ur Specific [place] Urine WBC (Auto) Miscellaneous Test 04/03/17 04/03/17 04/04/17 17:33 23:59 04:34 WBC RBC Hgb Hct MCV MCH RDW Plt Count Lymph % (Auto) [place] % (Auto) Eos % (Auto) Baso % (Auto) Lymph # Baso # Seg Neutrophils % Lymphocytes % (Manual) Monocytes % (Manual) Nucleated RBC % Seg Neutrophils # Seg Neutrophils # Man Monocytes # (Manual) PT INR Activated Clotting Time POC ABG pH 7.457 H POC ABG pCO2 29.8 L POC ABG pO2 76 L Sodium Potassium Chloride Carbon Dioxide BUN Creatinine Glucose POC Glucose 130 H 155 H Calcium Magnesium Direct Bilirubin AST ALT Alkaline Phosphatase Total Creatine Kinase CK-MB (CK-2) CK-MB (CK-2) Rel Index Troponin T C-Reactive Protein Total Protein Albumin Triglycerides Ur Specific [place] Urine WBC (Auto) Miscellaneous Test 04/04/17 04/04/17 04/04/17 05:27 12:22 18:18 WBC RBC Hgb Hct MCV MCH RDW Plt Count Lymph % (Auto) [place] % (Auto) Eos % (Auto) Baso % (Auto) Lymph # Baso # Seg Neutrophils % Lymphocytes % (Manual) Monocytes % (Manual) Nucleated RBC % Seg Neutrophils # Seg Neutrophils # Man Monocytes # (Manual) PT INR Activated Clotting Time POC ABG pH POC ABG pCO2 POC ABG pO2 Sodium Potassium Chloride Carbon Dioxide BUN Creatinine Glucose POC Glucose 164 H 146 H 130 H Calcium Magnesium Direct Bilirubin AST ALT Alkaline Phosphatase Total Creatine Kinase CK-MB (CK-2) CK-MB (CK-2) Rel Index Troponin T C-Reactive Protein Total Protein Albumin Triglycerides Ur Specific [place] Urine WBC (Auto) Miscellaneous Test 04/05/17 04/05/17 04/05/17 04:43 05:28 11:36 WBC RBC Hgb Hct MCV MCH RDW Plt Count Lymph % (Auto) [place] % (Auto) Eos % (Auto) Baso % (Auto) Lymph # Baso # Seg Neutrophils % Lymphocytes % (Manual) Monocytes % (Manual) Nucleated RBC % Seg Neutrophils # Seg Neutrophils # Man Monocytes # (Manual) PT INR Activated Clotting Time POC ABG pH 7.479 H POC ABG pCO2 33.5 L POC ABG pO2 76 L Sodium Potassium Chloride Carbon Dioxide BUN Creatinine Glucose POC Glucose 145 H 136 H Calcium Magnesium Direct Bilirubin AST ALT Alkaline Phosphatase Total Creatine Kinase CK-MB (CK-2) CK-MB (CK-2) Rel Index Troponin T C-Reactive Protein Total Protein Albumin Triglycerides Ur Specific [place] Urine WBC (Auto) Miscellaneous Test 04/05/17 04/06/17 04/06/17 17:58 00:16 05:26 WBC RBC Hgb Hct MCV MCH RDW Plt Count Lymph % (Auto) [place] % (Auto) Eos % (Auto) Baso % (Auto) Lymph # Baso # Seg Neutrophils % Lymphocytes % (Manual) Monocytes % (Manual) Nucleated RBC % Seg Neutrophils # Seg Neutrophils # Man Monocytes # (Manual) PT INR Activated Clotting Time POC ABG pH POC ABG pCO2 POC ABG pO2 Sodium Potassium Chloride Carbon Dioxide BUN Creatinine Glucose POC Glucose 130 H 159 H 146 H Calcium Magnesium Direct Bilirubin AST ALT Alkaline Phosphatase Total Creatine Kinase CK-MB (CK-2) CK-MB (CK-2) Rel Index Troponin T C-Reactive Protein Total Protein Albumin Triglycerides Ur Specific [place] Urine WBC (Auto) Miscellaneous Test 04/06/17 04/06/17 04/07/17 13:11 16:54 11:45 WBC RBC Hgb Hct MCV MCH RDW Plt Count Lymph % (Auto) [place] % (Auto) Eos % (Auto) Baso % (Auto) Lymph # Baso # Seg Neutrophils % Lymphocytes % (Manual) Monocytes % (Manual) Nucleated RBC % Seg Neutrophils # Seg Neutrophils # Man Monocytes # (Manual) PT INR Activated Clotting Time POC ABG pH 7.517 H POC ABG pCO2 32.1 L POC ABG pO2 Sodium Potassium Chloride Carbon Dioxide BUN Creatinine Glucose POC Glucose 132 H 123 H Calcium Magnesium Direct Bilirubin AST ALT Alkaline Phosphatase Total Creatine Kinase CK-MB (CK-2) CK-MB (CK-2) Rel Index Troponin T C-Reactive Protein Total Protein Albumin Triglycerides Ur Specific [place] Urine WBC (Auto) Miscellaneous Test 04/07/17 04/07/17 04/07/17 12:51 17:40 23:55 WBC RBC Hgb Hct MCV MCH RDW Plt Count Lymph % (Auto) [place] % (Auto) Eos % (Auto) Baso % (Auto) Lymph # Baso # Seg Neutrophils % Lymphocytes % (Manual) Monocytes % (Manual) Nucleated RBC % Seg Neutrophils # Seg Neutrophils # Man Monocytes # (Manual) PT INR Activated Clotting Time POC ABG pH POC ABG pCO2 POC ABG pO2 Sodium Potassium Chloride Carbon Dioxide BUN Creatinine Glucose POC Glucose 138 H 154 H 143 H Calcium Magnesium Direct Bilirubin AST ALT Alkaline Phosphatase Total Creatine Kinase CK-MB (CK-2) CK-MB (CK-2) Rel Index Troponin T C-Reactive Protein Total Protein Albumin Triglycerides Ur Specific [place] Urine WBC (Auto) Miscellaneous Test 04/08/17 04/08/17 04/08/17 05:27 11:14 17:44 WBC RBC Hgb Hct MCV MCH RDW Plt Count Lymph % (Auto) [place] % (Auto) Eos % (Auto) Baso % (Auto) Lymph # Baso # Seg Neutrophils % Lymphocytes % (Manual) Monocytes % (Manual) Nucleated RBC % Seg Neutrophils # Seg Neutrophils # Man Monocytes # (Manual) PT INR Activated Clotting Time POC ABG pH POC ABG pCO2 POC ABG pO2 Sodium Potassium Chloride Carbon Dioxide BUN Creatinine Glucose POC Glucose 142 H 153 H 129 H Calcium Magnesium Direct Bilirubin AST ALT Alkaline Phosphatase Total Creatine Kinase CK-MB (CK-2) CK-MB (CK-2) Rel Index Troponin T C-Reactive Protein Total Protein Albumin Triglycerides Ur Specific [place] Urine WBC (Auto) Miscellaneous Test 04/09/17 04/09/17 04/09/17 08:20 11:21 17:37 WBC RBC Hgb Hct MCV MCH RDW Plt Count Lymph % (Auto) [place] % (Auto) Eos % (Auto) Baso % (Auto) Lymph # Baso # Seg Neutrophils % Lymphocytes % (Manual) Monocytes % (Manual) Nucleated RBC % Seg Neutrophils # Seg Neutrophils # Man Monocytes # (Manual) PT INR Activated Clotting Time POC ABG pH POC ABG pCO2 POC ABG pO2 Sodium 147 H Potassium Chloride 108.8 H Carbon Dioxide BUN 39 H Creatinine 0.5 L Glucose 138 H POC Glucose 152 H 109 H Calcium Magnesium Direct Bilirubin AST ALT Alkaline Phosphatase Total Creatine Kinase CK-MB (CK-2) CK-MB (CK-2) Rel Index Troponin T C-Reactive Protein Total Protein Albumin Triglycerides Ur Specific [place] Urine WBC (Auto) Miscellaneous Test 04/10/17 04/10/17 04/10/17 00:13 04:16 04:16 WBC RBC Hgb 11.5 L Hct MCV 96 H MCH RDW Plt Count 103 L Lymph % (Auto) 11.1 L [place] % (Auto) Eos % (Auto) Baso % (Auto) Lymph # Baso # Seg Neutrophils % 81.5 H Lymphocytes % (Manual) Monocytes % (Manual) Nucleated RBC % Seg Neutrophils # 8.8 H Seg Neutrophils # Man Monocytes # (Manual) PT INR Activated Clotting Time POC ABG pH POC ABG pCO2 POC ABG pO2 Sodium 148 H Potassium Chloride 109.0 H Carbon Dioxide BUN 36 H Creatinine 0.5 L Glucose 131 H POC Glucose 127 H Calcium 8.1 L Magnesium 2.40 H Direct Bilirubin AST 206 H ALT 228 H Alkaline Phosphatase 178 H Total Creatine Kinase CK-MB (CK-2) CK-MB (CK-2) Rel Index Troponin T C-Reactive Protein Total Protein Albumin 2.8 L Triglycerides Ur Specific [place] Urine WBC (Auto) Miscellaneous Test 04/10/17 04/10/17 04/10/17 06:01 11:57 18:27 WBC RBC Hgb Hct MCV MCH RDW Plt Count Lymph % (Auto) [place] % (Auto) Eos % (Auto) Baso % (Auto) Lymph # Baso # Seg Neutrophils % Lymphocytes % (Manual) Monocytes % (Manual) Nucleated RBC % Seg Neutrophils # Seg Neutrophils # Man Monocytes # (Manual) PT INR Activated Clotting Time POC ABG pH POC ABG pCO2 POC ABG pO2 Sodium Potassium Chloride Carbon Dioxide BUN Creatinine Glucose POC Glucose 108 H 154 H 130 H Calcium Magnesium Direct Bilirubin AST ALT Alkaline Phosphatase Total Creatine Kinase CK-MB (CK-2) CK-MB (CK-2) Rel Index Troponin T C-Reactive Protein Total Protein Albumin Triglycerides Ur Specific [place] Urine WBC (Auto) Miscellaneous Test 04/11/17 04/11/17 04/12/17 12:25 17:10 00:22 WBC RBC Hgb Hct MCV MCH RDW Plt Count Lymph % (Auto) [place] % (Auto) Eos % (Auto) Baso % (Auto) Lymph # Baso # Seg Neutrophils % Lymphocytes % (Manual) Monocytes % (Manual) Nucleated RBC % Seg Neutrophils # Seg Neutrophils # Man Monocytes # (Manual) PT INR Activated Clotting Time POC ABG pH POC ABG pCO2 POC ABG pO2 Sodium Potassium Chloride Carbon Dioxide BUN Creatinine Glucose POC Glucose 107 H 129 H 128 H Calcium Magnesium Direct Bilirubin AST ALT Alkaline Phosphatase Total Creatine Kinase CK-MB (CK-2) CK-MB (CK-2) Rel Index Troponin T C-Reactive Protein Total Protein Albumin Triglycerides Ur Specific [place] Urine WBC (Auto) Miscellaneous Test 04/12/17 04/12/17 04/12/17 05:00 11:57 17:47 WBC RBC Hgb Hct MCV MCH RDW Plt Count Lymph % (Auto) [place] % (Auto) Eos % (Auto) Baso % (Auto) Lymph # Baso # Seg Neutrophils % Lymphocytes % (Manual) Monocytes % (Manual) Nucleated RBC % Seg Neutrophils # Seg Neutrophils # Man Monocytes # (Manual) PT INR Activated Clotting Time POC ABG pH POC ABG pCO2 POC ABG pO2 Sodium Potassium Chloride Carbon Dioxide BUN Creatinine Glucose POC Glucose 140 H 142 H Calcium Magnesium Direct Bilirubin AST 158 H ALT 184 H Alkaline Phosphatase 170 H Total Creatine Kinase CK-MB (CK-2) CK-MB (CK-2) Rel Index Troponin T C-Reactive Protein Total Protein Albumin 2.8 L Triglycerides Ur Specific [place] Urine WBC (Auto) Miscellaneous Test 04/12/17 04/12/17 04/13/17 21:36 21:36 01:37 WBC RBC Hgb Hct MCV MCH RDW Plt Count Lymph % (Auto) [place] % (Auto) Eos % (Auto) Baso % (Auto) Lymph # Baso # Seg Neutrophils % Lymphocytes % (Manual) Monocytes % (Manual) Nucleated RBC % Seg Neutrophils # Seg Neutrophils # Man Monocytes # (Manual) PT INR Activated Clotting Time POC ABG pH POC ABG pCO2 POC ABG pO2 Sodium Potassium Chloride Carbon Dioxide BUN Creatinine Glucose POC Glucose 126 H Calcium Magnesium Direct Bilirubin AST ALT Alkaline Phosphatase Total Creatine Kinase 1404 H CK-MB (CK-2) 8.0 H CK-MB (CK-2) Rel Index Troponin T 0.767 H* C-Reactive Protein Total Protein Albumin Triglycerides Ur Specific [place] Urine WBC (Auto) Miscellaneous Test 04/13/17 04/13/17 04/13/17 04:45 04:52 12:17 WBC RBC Hgb Hct MCV MCH RDW Plt Count Lymph % (Auto) [place] % (Auto) Eos % (Auto) Baso % (Auto) Lymph # Baso # Seg Neutrophils % Lymphocytes % (Manual) Monocytes % (Manual) Nucleated RBC % Seg Neutrophils # Seg Neutrophils # Man Monocytes # (Manual) PT INR Activated Clotting Time POC ABG pH POC ABG pCO2 POC ABG pO2 Sodium 148 H Potassium Chloride 112.8 H Carbon Dioxide BUN 33 H Creatinine 0.4 L Glucose 121 H POC Glucose 126 H 149 H Calcium Magnesium Direct Bilirubin AST 160 H ALT 189 H Alkaline Phosphatase 166 H Total Creatine Kinase CK-MB (CK-2) CK-MB (CK-2) Rel Index Troponin T C-Reactive Protein Total Protein Albumin 2.6 L Triglycerides Ur Specific [place] Urine WBC (Auto) Miscellaneous Test 04/13/17 04/14/17 04/14/17 17:45 00:20 00:45 WBC RBC Hgb Hct MCV MCH RDW Plt Count Lymph % (Auto) [place] % (Auto) Eos % (Auto) Baso % (Auto) Lymph # Baso # Seg Neutrophils % Lymphocytes % (Manual) Monocytes % (Manual) Nucleated RBC % Seg Neutrophils # Seg Neutrophils # Man Monocytes # (Manual) PT INR Activated Clotting Time POC ABG pH POC ABG pCO2 POC ABG pO2 Sodium Potassium Chloride Carbon Dioxide BUN Creatinine Glucose POC Glucose 130 H 144 H 144 H Calcium Magnesium Direct Bilirubin AST ALT Alkaline Phosphatase Total Creatine Kinase CK-MB (CK-2) CK-MB (CK-2) Rel Index Troponin T C-Reactive Protein Total Protein Albumin Triglycerides Ur Specific [place] Urine WBC (Auto) Miscellaneous Test 04/14/17 04/14/17 04/14/17 05:40 11:06 11:31 WBC RBC Hgb Hct MCV MCH RDW Plt Count Lymph % (Auto) [place] % (Auto) Eos % (Auto) Baso % (Auto) Lymph # Baso # Seg Neutrophils % Lymphocytes % (Manual) Monocytes % (Manual) Nucleated RBC % Seg Neutrophils # Seg Neutrophils # Man Monocytes # (Manual) PT INR Activated Clotting Time POC ABG pH POC ABG pCO2 POC ABG pO2 Sodium Potassium Chloride Carbon Dioxide BUN Creatinine Glucose POC Glucose 139 H 123 H Calcium Magnesium Direct Bilirubin AST ALT Alkaline Phosphatase Total Creatine Kinase CK-MB (CK-2) CK-MB (CK-2) Rel Index Troponin T C-Reactive Protein Total Protein Albumin Triglycerides Ur Specific [place] 1.033 H Urine WBC (Auto) > 182.0 H Miscellaneous Test 04/14/17 04/14/17 04/15/17 18:00 23:52 05:15 WBC 12.5 H RBC 3.38 L Hgb 10.6 L Hct 32.7 L MCV 97 H MCH RDW Plt Count 107 L Lymph % (Auto) 8.7 L [place] % (Auto) Eos % (Auto) Baso % (Auto) Lymph # 1.1 L Baso # Seg Neutrophils % 86.1 H Lymphocytes % (Manual) Monocytes % (Manual) Nucleated RBC % Seg Neutrophils # 10.7 H Seg Neutrophils # Man Monocytes # (Manual) PT INR Activated Clotting Time POC ABG pH POC ABG pCO2 POC ABG pO2 Sodium Potassium Chloride Carbon Dioxide BUN Creatinine Glucose POC Glucose 133 H 133 H Calcium Magnesium Direct Bilirubin AST ALT Alkaline Phosphatase Total Creatine Kinase CK-MB (CK-2) CK-MB (CK-2) Rel Index Troponin T C-Reactive Protein Total Protein Albumin Triglycerides Ur Specific [place] Urine WBC (Auto) Miscellaneous Test 04/15/17 04/15/17 04/15/17 05:15 05:25 11:50 WBC RBC Hgb Hct MCV MCH RDW Plt Count Lymph % (Auto) [place] % (Auto) Eos % (Auto) Baso % (Auto) Lymph # Baso # Seg Neutrophils % Lymphocytes % (Manual) Monocytes % (Manual) Nucleated RBC % Seg Neutrophils # Seg Neutrophils # Man Monocytes # (Manual) PT INR Activated Clotting Time POC ABG pH POC ABG pCO2 POC ABG pO2 Sodium 149 H Potassium 3.5 L Chloride 114.1 H Carbon Dioxide 21 L BUN 29 H Creatinine 0.4 L Glucose 128 H POC Glucose 133 H 107 H Calcium 8.3 L Magnesium Direct Bilirubin 0.4 H AST 149 H ALT 182 H Alkaline Phosphatase 143 H Total Creatine Kinase CK-MB (CK-2) CK-MB (CK-2) Rel Index Troponin T C-Reactive Protein Total Protein Albumin 2.5 L Triglycerides Ur Specific [place] Urine WBC (Auto) Miscellaneous Test 04/15/17 04/16/17 04/16/17 16:55 00:02 03:17 WBC RBC 3.39 L Hgb 10.5 L Hct 32.4 L MCV 96 H MCH RDW Plt Count 106 L Lymph % (Auto) 6.7 L [place] % (Auto) Eos % (Auto) Baso % (Auto) Lymph # 0.6 L Baso # Seg Neutrophils % 86.8 H Lymphocytes % (Manual) Monocytes % (Manual) Nucleated RBC % Seg Neutrophils # 8.2 H Seg Neutrophils # Man Monocytes # (Manual) PT INR Activated Clotting Time POC ABG pH POC ABG pCO2 POC ABG pO2 Sodium Potassium Chloride Carbon Dioxide BUN Creatinine Glucose POC Glucose 146 H 148 H Calcium Magnesium Direct Bilirubin AST ALT Alkaline Phosphatase Total Creatine Kinase CK-MB (CK-2) CK-MB (CK-2) Rel Index Troponin T C-Reactive Protein Total Protein Albumin Triglycerides Ur Specific [place] Urine WBC (Auto) Miscellaneous Test 04/16/17 04/16/17 04/16/17 03:17 05:19 11:13 WBC RBC Hgb Hct MCV MCH RDW Plt Count Lymph % (Auto) [place] % (Auto) Eos % (Auto) Baso % (Auto) Lymph # Baso # Seg Neutrophils % Lymphocytes % (Manual) Monocytes % (Manual) Nucleated RBC % Seg Neutrophils # Seg Neutrophils # Man Monocytes # (Manual) PT INR Activated Clotting Time POC ABG pH POC ABG pCO2 POC ABG pO2 Sodium 149 H Potassium Chloride 111.1 H Carbon Dioxide 20 L BUN 27 H Creatinine 0.3 L Glucose 156 H POC Glucose 171 H 169 H Calcium 8.3 L Magnesium Direct Bilirubin AST ALT Alkaline Phosphatase Total Creatine Kinase CK-MB (CK-2) CK-MB (CK-2) Rel Index Troponin T C-Reactive Protein Total Protein Albumin Triglycerides Ur Specific [place] Urine WBC (Auto) Miscellaneous Test 04/16/17 04/17/17 04/17/17 17:03 00:00 05:09 WBC RBC Hgb Hct MCV MCH RDW Plt Count Lymph % (Auto) [place] % (Auto) Eos % (Auto) Baso % (Auto) Lymph # Baso # Seg Neutrophils % Lymphocytes % (Manual) Monocytes % (Manual) Nucleated RBC % Seg Neutrophils # Seg Neutrophils # Man Monocytes # (Manual) PT INR Activated Clotting Time POC ABG pH POC ABG pCO2 POC ABG pO2 Sodium Potassium Chloride Carbon Dioxide BUN Creatinine Glucose POC Glucose 151 H 165 H 145 H Calcium Magnesium Direct Bilirubin AST ALT Alkaline Phosphatase Total Creatine Kinase CK-MB (CK-2) CK-MB (CK-2) Rel Index Troponin T C-Reactive Protein Total Protein Albumin Triglycerides Ur Specific [place] Urine WBC (Auto) Miscellaneous Test 04/17/17 04/17/17 04/18/17 11:38 17:47 00:01 WBC RBC Hgb Hct MCV MCH RDW Plt Count Lymph % (Auto) [place] % (Auto) Eos % (Auto) Baso % (Auto) Lymph # Baso # Seg Neutrophils % Lymphocytes % (Manual) Monocytes % (Manual) Nucleated RBC % Seg Neutrophils # Seg Neutrophils # Man Monocytes # (Manual) PT INR Activated Clotting Time POC ABG pH POC ABG pCO2 POC ABG pO2 Sodium Potassium Chloride Carbon Dioxide BUN Creatinine Glucose POC Glucose 170 H 161 H 131 H Calcium Magnesium Direct Bilirubin AST ALT Alkaline Phosphatase Total Creatine Kinase CK-MB (CK-2) CK-MB (CK-2) Rel Index Troponin T C-Reactive Protein Total Protein Albumin Triglycerides Ur Specific [place] Urine WBC (Auto) Miscellaneous Test 04/18/17 04/18/17 04/18/17 03:55 03:55 05:30 WBC RBC 3.05 L Hgb 9.8 L Hct 29.0 L MCV 95 H MCH RDW Plt Count 113 L Lymph % (Auto) [place] % (Auto) Eos % (Auto) 5.3 H Baso % (Auto) Lymph # Baso # Seg Neutrophils % 71.5 H Lymphocytes % (Manual) Monocytes % (Manual) Nucleated RBC % Seg Neutrophils # Seg Neutrophils # Man Monocytes # (Manual) PT INR Activated Clotting Time POC ABG pH 7.460 H POC ABG pCO2 30.8 L POC ABG pO2 129 H Sodium Potassium Chloride Carbon Dioxide 21 L BUN 25 H Creatinine 0.4 L Glucose 123 H POC Glucose Calcium 8.3 L Magnesium Direct Bilirubin AST ALT Alkaline Phosphatase Total Creatine Kinase CK-MB (CK-2) CK-MB (CK-2) Rel Index Troponin T C-Reactive Protein Total Protein Albumin Triglycerides Ur Specific [place] Urine WBC (Auto) Miscellaneous Test 04/18/17 04/18/17 04/19/17 17:10 23:40 04:36 WBC RBC 3.21 L Hgb 10.2 L Hct 30.4 L MCV 95 H MCH RDW Plt Count 131 L Lymph % (Auto) 12.1 L [place] % (Auto) Eos % (Auto) 4.7 H Baso % (Auto) 2.4 H Lymph # 0.9 L Baso # 0.2 H Seg Neutrophils % 75.0 H Lymphocytes % (Manual) Monocytes % (Manual) Nucleated RBC % Seg Neutrophils # Seg Neutrophils # Man Monocytes # (Manual) PT INR Activated Clotting Time POC ABG pH POC ABG pCO2 POC ABG pO2 Sodium Potassium Chloride Carbon Dioxide BUN Creatinine Glucose POC Glucose 135 H 157 H Calcium Magnesium Direct Bilirubin AST ALT Alkaline Phosphatase Total Creatine Kinase CK-MB (CK-2) CK-MB (CK-2) Rel Index Troponin T C-Reactive Protein Total Protein Albumin Triglycerides Ur Specific [place] Urine WBC (Auto) Miscellaneous Test 04/19/17 04/19/17 04/19/17 04:36 05:12 06:50 WBC RBC Hgb Hct MCV MCH RDW Plt Count Lymph % (Auto) [place] % (Auto) Eos % (Auto) Baso % (Auto) Lymph # Baso # Seg Neutrophils % Lymphocytes % (Manual) Monocytes % (Manual) Nucleated RBC % Seg Neutrophils # Seg Neutrophils # Man Monocytes # (Manual) PT INR Activated Clotting Time POC ABG pH 7.516 H POC ABG pCO2 28.0 L POC ABG pO2 Sodium Potassium Chloride Carbon Dioxide 21 L BUN 23 H Creatinine 0.2 L Glucose 137 H POC Glucose 131 H Calcium 7.9 L Magnesium Direct Bilirubin AST ALT Alkaline Phosphatase Total Creatine Kinase CK-MB (CK-2) CK-MB (CK-2) Rel Index Troponin T C-Reactive Protein Total Protein Albumin Triglycerides Ur Specific [place] Urine WBC (Auto) Miscellaneous Test 04/19/17 04/19/17 04/20/17 12:36 17:42 00:12 WBC RBC Hgb Hct MCV MCH RDW Plt Count Lymph % (Auto) [place] % (Auto) Eos % (Auto) Baso % (Auto) Lymph # Baso # Seg Neutrophils % Lymphocytes % (Manual) Monocytes % (Manual) Nucleated RBC % Seg Neutrophils # Seg Neutrophils # Man Monocytes # (Manual) PT INR Activated Clotting Time POC ABG pH POC ABG pCO2 POC ABG pO2 Sodium Potassium Chloride Carbon Dioxide BUN Creatinine Glucose POC Glucose 128 H 140 H 132 H Calcium Magnesium Direct Bilirubin AST ALT Alkaline Phosphatase Total Creatine Kinase CK-MB (CK-2) CK-MB (CK-2) Rel Index Troponin T C-Reactive Protein Total Protein Albumin Triglycerides Ur Specific [place] Urine WBC (Auto) Miscellaneous Test 04/20/17 04/20/17 04/20/17 03:35 03:35 05:10 WBC RBC 3.34 L Hgb 10.4 L Hct 31.6 L MCV 95 H MCH RDW Plt Count Lymph % (Auto) 12.9 L [place] % (Auto) Eos % (Auto) Baso % (Auto) Lymph # Baso # Seg Neutrophils % 77.3 H Lymphocytes % (Manual) Monocytes % (Manual) Nucleated RBC % Seg Neutrophils # Seg Neutrophils # Man Monocytes # (Manual) PT INR Activated Clotting Time POC ABG pH POC ABG pCO2 POC ABG pO2 Sodium Potassium Chloride Carbon Dioxide BUN Creatinine 0.3 L Glucose 155 H POC Glucose 135 H Calcium 7.8 L Magnesium Direct Bilirubin AST ALT Alkaline Phosphatase Total Creatine Kinase CK-MB (CK-2) CK-MB (CK-2) Rel Index Troponin T C-Reactive Protein Total Protein Albumin Triglycerides Ur Specific [place] Urine WBC (Auto) Miscellaneous Test 04/20/17 04/20/17 04/21/17 12:49 18:21 00:05 WBC RBC Hgb Hct MCV MCH RDW Plt Count Lymph % (Auto) [place] % (Auto) Eos % (Auto) Baso % (Auto) Lymph # Baso # Seg Neutrophils % Lymphocytes % (Manual) Monocytes % (Manual) Nucleated RBC % Seg Neutrophils # Seg Neutrophils # Man Monocytes # (Manual) PT INR Activated Clotting Time POC ABG pH POC ABG pCO2 POC ABG pO2 Sodium Potassium Chloride Carbon Dioxide BUN Creatinine Glucose POC Glucose 155 H 165 H 141 H Calcium Magnesium Direct Bilirubin AST ALT Alkaline Phosphatase Total Creatine Kinase CK-MB (CK-2) CK-MB (CK-2) Rel Index Troponin T C-Reactive Protein Total Protein Albumin Triglycerides Ur Specific [place] Urine WBC (Auto) Miscellaneous Test 04/21/17 04/21/17 04/21/17 06:00 12:11 17:04 WBC RBC Hgb Hct MCV MCH RDW Plt Count Lymph % (Auto) [place] % (Auto) Eos % (Auto) Baso % (Auto) Lymph # Baso # Seg Neutrophils % Lymphocytes % (Manual) Monocytes % (Manual) Nucleated RBC % Seg Neutrophils # Seg Neutrophils # Man Monocytes # (Manual) PT INR Activated Clotting Time POC ABG pH POC ABG pCO2 POC ABG pO2 Sodium Potassium Chloride Carbon Dioxide BUN Creatinine Glucose POC Glucose 152 H 165 H 156 H Calcium Magnesium Direct Bilirubin AST ALT Alkaline Phosphatase Total Creatine Kinase CK-MB (CK-2) CK-MB (CK-2) Rel Index Troponin T C-Reactive Protein Total Protein Albumin Triglycerides Ur Specific [place] Urine WBC (Auto) Miscellaneous Test 04/21/17 04/21/17 04/22/17 22:00 23:59 05:49 WBC RBC Hgb Hct MCV MCH RDW Plt Count Lymph % (Auto) [place] % (Auto) Eos % (Auto) Baso % (Auto) Lymph # Baso # Seg Neutrophils % Lymphocytes % (Manual) Monocytes % (Manual) Nucleated RBC % Seg Neutrophils # Seg Neutrophils # Man Monocytes # (Manual) PT INR Activated Clotting Time POC ABG pH POC ABG pCO2 POC ABG pO2 Sodium Potassium Chloride Carbon Dioxide BUN Creatinine Glucose POC Glucose 166 H 173 H Calcium Magnesium Direct Bilirubin AST ALT Alkaline Phosphatase Total Creatine Kinase CK-MB (CK-2) CK-MB (CK-2) Rel Index Troponin T C-Reactive Protein Total Protein Albumin Triglycerides Ur Specific [place] Urine WBC (Auto) 10.0 H Miscellaneous Test 04/22/17 04/22/17 04/23/17 11:11 18:04 00:37 WBC RBC Hgb Hct MCV MCH RDW Plt Count Lymph % (Auto) [place] % (Auto) Eos % (Auto) Baso % (Auto) Lymph # Baso # Seg Neutrophils % Lymphocytes % (Manual) Monocytes % (Manual) Nucleated RBC % Seg Neutrophils # Seg Neutrophils # Man Monocytes # (Manual) PT INR Activated Clotting Time POC ABG pH POC ABG pCO2 POC ABG pO2 Sodium Potassium Chloride Carbon Dioxide BUN Creatinine Glucose POC Glucose 172 H 140 H 135 H Calcium Magnesium Direct Bilirubin AST ALT Alkaline Phosphatase Total Creatine Kinase CK-MB (CK-2) CK-MB (CK-2) Rel Index Troponin T C-Reactive Protein Total Protein Albumin Triglycerides Ur Specific [place] Urine WBC (Auto) Miscellaneous Test 04/23/17 04/23/17 04/23/17 05:33 06:20 11:10 WBC RBC 3.19 L Hgb 9.9 L Hct 30.0 L MCV MCH RDW Plt Count Lymph % (Auto) 8.0 L [place] % (Auto) Eos % (Auto) Baso % (Auto) Lymph # 0.8 L Baso # Seg Neutrophils % 84.5 H Lymphocytes % (Manual) Monocytes % (Manual) Nucleated RBC % Seg Neutrophils # 8.2 H Seg Neutrophils # Man Monocytes # (Manual) PT INR Activated Clotting Time POC ABG pH POC ABG pCO2 POC ABG pO2 Sodium Potassium Chloride Carbon Dioxide BUN Creatinine Glucose POC Glucose 134 H 134 H Calcium Magnesium Direct Bilirubin AST ALT Alkaline Phosphatase Total Creatine Kinase CK-MB (CK-2) CK-MB (CK-2) Rel Index Troponin T C-Reactive Protein Total Protein Albumin Triglycerides Ur Specific [place] Urine WBC (Auto) Miscellaneous Test 04/23/17 04/24/17 04/24/17 17:26 00:53 06:46 WBC RBC Hgb Hct MCV MCH RDW Plt Count Lymph % (Auto) [place] % (Auto) Eos % (Auto) Baso % (Auto) Lymph # Baso # Seg Neutrophils % Lymphocytes % (Manual) Monocytes % (Manual) Nucleated RBC % Seg Neutrophils # Seg Neutrophils # Man Monocytes # (Manual) PT INR Activated Clotting Time POC ABG pH POC ABG pCO2 POC ABG pO2 Sodium Potassium Chloride Carbon Dioxide BUN Creatinine Glucose POC Glucose 164 H 146 H 125 H Calcium Magnesium Direct Bilirubin AST ALT Alkaline Phosphatase Total Creatine Kinase CK-MB (CK-2) CK-MB (CK-2) Rel Index Troponin T C-Reactive Protein Total Protein Albumin Triglycerides Ur Specific [place] Urine WBC (Auto) Miscellaneous Test 04/24/17 04/24/17 04/24/17 11:55 17:50 23:36 WBC RBC Hgb Hct MCV MCH RDW Plt Count Lymph % (Auto) [place] % (Auto) Eos % (Auto) Baso % (Auto) Lymph # Baso # Seg Neutrophils % Lymphocytes % (Manual) Monocytes % (Manual) Nucleated RBC % Seg Neutrophils # Seg Neutrophils # Man Monocytes # (Manual) PT INR Activated Clotting Time POC ABG pH POC ABG pCO2 POC ABG pO2 Sodium Potassium Chloride Carbon Dioxide BUN Creatinine Glucose POC Glucose 156 H 146 H 131 H Calcium Magnesium Direct Bilirubin AST ALT Alkaline Phosphatase Total Creatine Kinase CK-MB (CK-2) CK-MB (CK-2) Rel Index Troponin T C-Reactive Protein Total Protein Albumin Triglycerides Ur Specific [place] Urine WBC (Auto) Miscellaneous Test 04/25/17 04/25/17 04/25/17 04:51 05:16 07:07 WBC RBC Hgb Hct MCV MCH RDW Plt Count Lymph % (Auto) [place] % (Auto) Eos % (Auto) Baso % (Auto) Lymph # Baso # Seg Neutrophils % Lymphocytes % (Manual) Monocytes % (Manual) Nucleated RBC % Seg Neutrophils # Seg Neutrophils # Man Monocytes # (Manual) PT INR Activated Clotting Time POC ABG pH POC ABG pCO2 POC ABG pO2 Sodium Potassium Chloride Carbon Dioxide BUN Creatinine Glucose POC Glucose 139 H Calcium Magnesium Direct Bilirubin AST 105 H ALT 204 H Alkaline Phosphatase 189 H Total Creatine Kinase CK-MB (CK-2) CK-MB (CK-2) Rel Index Troponin T C-Reactive Protein Total Protein Albumin 2.4 L Triglycerides Ur Specific [place] Urine WBC (Auto) Miscellaneous Test Flexitest 1 H 04/25/17 04/25/17 04/25/17 12:29 17:23 23:32 WBC RBC Hgb Hct MCV MCH RDW Plt Count Lymph % (Auto) [place] % (Auto) Eos % (Auto) Baso % (Auto) Lymph # Baso # Seg Neutrophils % Lymphocytes % (Manual) Monocytes % (Manual) Nucleated RBC % Seg Neutrophils # Seg Neutrophils # Man Monocytes # (Manual) PT INR Activated Clotting Time POC ABG pH POC ABG pCO2 POC ABG pO2 Sodium Potassium Chloride Carbon Dioxide BUN Creatinine Glucose POC Glucose 132 H 133 H 128 H Calcium Magnesium Direct Bilirubin AST ALT Alkaline Phosphatase Total Creatine Kinase CK-MB (CK-2) CK-MB (CK-2) Rel Index Troponin T C-Reactive Protein Total Protein Albumin Triglycerides Ur Specific [place] Urine WBC (Auto) Miscellaneous Test 04/26/17 04/26/17 04/26/17 05:24 11:28 17:09 WBC RBC Hgb Hct MCV MCH RDW Plt Count Lymph % (Auto) [place] % (Auto) Eos % (Auto) Baso % (Auto) Lymph # Baso # Seg Neutrophils % Lymphocytes % (Manual) Monocytes % (Manual) Nucleated RBC % Seg Neutrophils # Seg Neutrophils # Man Monocytes # (Manual) PT INR Activated Clotting Time POC ABG pH POC ABG pCO2 POC ABG pO2 Sodium Potassium Chloride Carbon Dioxide BUN Creatinine Glucose POC Glucose 132 H 146 H 141 H Calcium Magnesium Direct Bilirubin AST ALT Alkaline Phosphatase Total Creatine Kinase CK-MB (CK-2) CK-MB (CK-2) Rel Index Troponin T C-Reactive Protein Total Protein Albumin Triglycerides Ur Specific [place] Urine WBC (Auto) Miscellaneous Test 04/26/17 04/27/17 04/27/17 23:52 05:40 05:40 WBC RBC 3.22 L Hgb 10.0 L Hct 29.9 L MCV MCH RDW Plt Count Lymph % (Auto) [place] % (Auto) Eos % (Auto) Baso % (Auto) Lymph # Baso # Seg Neutrophils % 76.6 H Lymphocytes % (Manual) Monocytes % (Manual) Nucleated RBC % Seg Neutrophils # Seg Neutrophils # Man Monocytes # (Manual) PT INR Activated Clotting Time POC ABG pH POC ABG pCO2 POC ABG pO2 Sodium Potassium Chloride Carbon Dioxide BUN Creatinine Glucose POC Glucose 140 H Calcium Magnesium Direct Bilirubin AST 66 H ALT 137 H Alkaline Phosphatase 169 H Total Creatine Kinase CK-MB (CK-2) CK-MB (CK-2) Rel Index Troponin T C-Reactive Protein Total Protein 6.2 L Albumin 2.6 L Triglycerides Ur Specific [place] Urine WBC (Auto) Miscellaneous Test 04/27/17 04/27/17 04/27/17 05:40 06:10 11:13 WBC RBC Hgb Hct MCV MCH RDW Plt Count Lymph % (Auto) [place] % (Auto) Eos % (Auto) Baso % (Auto) Lymph # Baso # Seg Neutrophils % Lymphocytes % (Manual) Monocytes % (Manual) Nucleated RBC % Seg Neutrophils # Seg Neutrophils # Man Monocytes # (Manual) PT INR Activated Clotting Time POC ABG pH POC ABG pCO2 POC ABG pO2 Sodium Potassium Chloride Carbon Dioxide BUN Creatinine 0.2 L Glucose 139 H POC Glucose 130 H 151 H Calcium Magnesium Direct Bilirubin AST ALT Alkaline Phosphatase Total Creatine Kinase CK-MB (CK-2) CK-MB (CK-2) Rel Index Troponin T C-Reactive Protein Total Protein Albumin Triglycerides Ur Specific [place] Urine WBC (Auto) Miscellaneous Test 04/27/17 04/27/17 04/28/17 17:37 23:19 05:24 WBC RBC Hgb Hct MCV MCH RDW Plt Count Lymph % (Auto) [place] % (Auto) Eos % (Auto) Baso % (Auto) Lymph # Baso # Seg Neutrophils % Lymphocytes % (Manual) Monocytes % (Manual) Nucleated RBC % Seg Neutrophils # Seg Neutrophils # Man Monocytes # (Manual) PT INR Activated Clotting Time POC ABG pH POC ABG pCO2 POC ABG pO2 Sodium Potassium Chloride Carbon Dioxide BUN Creatinine Glucose POC Glucose 159 H 130 H 132 H Calcium Magnesium Direct Bilirubin AST ALT Alkaline Phosphatase Total Creatine Kinase CK-MB (CK-2) CK-MB (CK-2) Rel Index Troponin T C-Reactive Protein Total Protein Albumin Triglycerides Ur Specific [place] Urine WBC (Auto) Miscellaneous Test 04/28/17 04/28/17 04/28/17 11:15 17:38 23:23 WBC RBC Hgb Hct MCV MCH RDW Plt Count Lymph % (Auto) [place] % (Auto) Eos % (Auto) Baso % (Auto) Lymph # Baso # Seg Neutrophils % Lymphocytes % (Manual) Monocytes % (Manual) Nucleated RBC % Seg Neutrophils # Seg Neutrophils # Man Monocytes # (Manual) PT INR Activated Clotting Time POC ABG pH POC ABG pCO2 POC ABG pO2 Sodium Potassium Chloride Carbon Dioxide BUN Creatinine Glucose POC Glucose 162 H 133 H 138 H Calcium Magnesium Direct Bilirubin AST ALT Alkaline Phosphatase Total Creatine Kinase CK-MB (CK-2) CK-MB (CK-2) Rel Index Troponin T C-Reactive Protein Total Protein Albumin Triglycerides Ur Specific [place] Urine WBC (Auto) Miscellaneous Test 04/29/17 04/29/17 04/29/17 05:15 12:55 17:21 WBC RBC Hgb Hct MCV MCH RDW Plt Count Lymph % (Auto) [place] % (Auto) Eos % (Auto) Baso % (Auto) Lymph # Baso # Seg Neutrophils % Lymphocytes % (Manual) Monocytes % (Manual) Nucleated RBC % Seg Neutrophils # Seg Neutrophils # Man Monocytes # (Manual) PT INR Activated Clotting Time POC ABG pH POC ABG pCO2 POC ABG pO2 Sodium Potassium Chloride Carbon Dioxide BUN Creatinine Glucose POC Glucose 135 H 127 H 138 H Calcium Magnesium Direct Bilirubin AST ALT Alkaline Phosphatase Total Creatine Kinase CK-MB (CK-2) CK-MB (CK-2) Rel Index Troponin T C-Reactive Protein Total Protein Albumin Triglycerides Ur Specific [place] Urine WBC (Auto) Miscellaneous Test 04/29/17 04/30/17 04/30/17 23:52 04:55 12:22 WBC RBC Hgb Hct MCV MCH RDW Plt Count Lymph % (Auto) [place] % (Auto) Eos % (Auto) Baso % (Auto) Lymph # Baso # Seg Neutrophils % Lymphocytes % (Manual) Monocytes % (Manual) Nucleated RBC % Seg Neutrophils # Seg Neutrophils # Man Monocytes # (Manual) PT INR Activated Clotting Time POC ABG pH POC ABG pCO2 POC ABG pO2 Sodium Potassium Chloride Carbon Dioxide BUN Creatinine Glucose POC Glucose 142 H 146 H 132 H Calcium Magnesium Direct Bilirubin AST ALT Alkaline Phosphatase Total Creatine Kinase CK-MB (CK-2) CK-MB (CK-2) Rel Index Troponin T C-Reactive Protein Total Protein Albumin Triglycerides Ur Specific [place] Urine WBC (Auto) Miscellaneous Test 04/30/17 04/30/17 04/30/17 14:25 17:47 18:20 WBC RBC Hgb Hct MCV MCH RDW Plt Count Lymph % (Auto) [place] % (Auto) Eos % (Auto) Baso % (Auto) Lymph # Baso # Seg Neutrophils % Lymphocytes % (Manual) Monocytes % (Manual) Nucleated RBC % Seg Neutrophils # Seg Neutrophils # Man Monocytes # (Manual) PT INR Activated Clotting Time POC ABG pH 7.551 H POC ABG pCO2 32.7 L POC ABG pO2 Sodium Potassium Chloride Carbon Dioxide BUN 21 H Creatinine 0.2 L Glucose 141 H POC Glucose 139 H Calcium Magnesium Direct Bilirubin AST ALT Alkaline Phosphatase Total Creatine Kinase CK-MB (CK-2) CK-MB (CK-2) Rel Index Troponin T C-Reactive Protein Total Protein Albumin Triglycerides Ur Specific [place] Urine WBC (Auto) Miscellaneous Test 05/01/17 05/01/17 05/01/17 01:26 05:30 05:30 WBC RBC 3.49 L Hgb 10.3 L Hct 31.9 L MCV MCH RDW Plt Count Lymph % (Auto) [place] % (Auto) 8.1 H Eos % (Auto) Baso % (Auto) Lymph # Baso # Seg Neutrophils % 71.3 H Lymphocytes % (Manual) Monocytes % (Manual) Nucleated RBC % Seg Neutrophils # Seg Neutrophils # Man Monocytes # (Manual) PT INR Activated Clotting Time POC ABG pH POC ABG pCO2 POC ABG pO2 Sodium 136 L Potassium Chloride 97.6 L Carbon Dioxide BUN Creatinine 0.2 L Glucose 123 H POC Glucose 116 H Calcium Magnesium Direct Bilirubin AST 71 H ALT 125 H Alkaline Phosphatase 158 H Total Creatine Kinase CK-MB (CK-2) CK-MB (CK-2) Rel Index Troponin T C-Reactive Protein Total Protein Albumin 2.6 L Triglycerides Ur Specific [place] Urine WBC (Auto) Miscellaneous Test 05/01/17 05/01/17 05/02/17 11:59 17:23 00:08 WBC RBC Hgb Hct MCV MCH RDW Plt Count Lymph % (Auto) [place] % (Auto) Eos % (Auto) Baso % (Auto) Lymph # Baso # Seg Neutrophils % Lymphocytes % (Manual) Monocytes % (Manual) Nucleated RBC % Seg Neutrophils # Seg Neutrophils # Man Monocytes # (Manual) PT INR Activated Clotting Time POC ABG pH POC ABG pCO2 POC ABG pO2 Sodium Potassium Chloride Carbon Dioxide BUN Creatinine Glucose POC Glucose 118 H 144 H 122 H Calcium Magnesium Direct Bilirubin AST ALT Alkaline Phosphatase Total Creatine Kinase CK-MB (CK-2) CK-MB (CK-2) Rel Index Troponin T C-Reactive Protein Total Protein Albumin Triglycerides Ur Specific [place] Urine WBC (Auto) Miscellaneous Test 05/02/17 05/02/17 05/02/17 05:50 11:21 17:48 WBC RBC Hgb Hct MCV MCH RDW Plt Count Lymph % (Auto) [place] % (Auto) Eos % (Auto) Baso % (Auto) Lymph # Baso # Seg Neutrophils % Lymphocytes % (Manual) Monocytes % (Manual) Nucleated RBC % Seg Neutrophils # Seg Neutrophils # Man Monocytes # (Manual) PT INR Activated Clotting Time POC ABG pH POC ABG pCO2 POC ABG pO2 Sodium Potassium Chloride Carbon Dioxide BUN Creatinine Glucose POC Glucose 120 H 121 H 140 H Calcium Magnesium Direct Bilirubin AST ALT Alkaline Phosphatase Total Creatine Kinase CK-MB (CK-2) CK-MB (CK-2) Rel Index Troponin T C-Reactive Protein Total Protein Albumin Triglycerides Ur Specific [place] Urine WBC (Auto) Miscellaneous Test 05/02/17 05/03/17 05/03/17 23:12 05:35 11:52 WBC RBC Hgb Hct MCV MCH RDW Plt Count Lymph % (Auto) [place] % (Auto) Eos % (Auto) Baso % (Auto) Lymph # Baso # Seg Neutrophils % Lymphocytes % (Manual) Monocytes % (Manual) Nucleated RBC % Seg Neutrophils # Seg Neutrophils # Man Monocytes # (Manual) PT INR Activated Clotting Time POC ABG pH POC ABG pCO2 POC ABG pO2 Sodium Potassium Chloride Carbon Dioxide BUN Creatinine Glucose POC Glucose 128 H 113 H 126 H Calcium Magnesium Direct Bilirubin AST ALT Alkaline Phosphatase Total Creatine Kinase CK-MB (CK-2) CK-MB (CK-2) Rel Index Troponin T C-Reactive Protein Total Protein Albumin Triglycerides Ur Specific [place] Urine WBC (Auto) Miscellaneous Test 05/03/17 05/03/17 05/04/17 17:29 23:26 04:55 WBC RBC Hgb Hct MCV MCH RDW Plt Count Lymph % (Auto) [place] % (Auto) Eos % (Auto) Baso % (Auto) Lymph # Baso # Seg Neutrophils % Lymphocytes % (Manual) Monocytes % (Manual) Nucleated RBC % Seg Neutrophils # Seg Neutrophils # Man Monocytes # (Manual) PT INR Activated Clotting Time POC ABG pH POC ABG pCO2 POC ABG pO2 Sodium Potassium Chloride Carbon Dioxide BUN Creatinine Glucose POC Glucose 141 H 129 H 126 H Calcium Magnesium Direct Bilirubin AST ALT Alkaline Phosphatase Total Creatine Kinase CK-MB (CK-2) CK-MB (CK-2) Rel Index Troponin T C-Reactive Protein Total Protein Albumin Triglycerides Ur Specific [place] Urine WBC (Auto) Miscellaneous Test 05/04/17 05/04/17 05/05/17 12:09 17:46 00:06 WBC RBC Hgb Hct MCV MCH RDW Plt Count Lymph % (Auto) [place] % (Auto) Eos % (Auto) Baso % (Auto) Lymph # Baso # Seg Neutrophils % Lymphocytes % (Manual) Monocytes % (Manual) Nucleated RBC % Seg Neutrophils # Seg Neutrophils # Man Monocytes # (Manual) PT INR Activated Clotting Time POC ABG pH POC ABG pCO2 POC ABG pO2 Sodium Potassium Chloride Carbon Dioxide BUN Creatinine Glucose POC Glucose 125 H 125 H 110 H Calcium Magnesium Direct Bilirubin AST ALT Alkaline Phosphatase Total Creatine Kinase CK-MB (CK-2) CK-MB (CK-2) Rel Index Troponin T C-Reactive Protein Total Protein Albumin Triglycerides Ur Specific [place] Urine WBC (Auto) Miscellaneous Test 05/05/17 05/05/17 05/05/17 05:48 11:41 16:19 WBC RBC Hgb Hct MCV MCH RDW Plt Count Lymph % (Auto) [place] % (Auto) Eos % (Auto) Baso % (Auto) Lymph # Baso # Seg Neutrophils % Lymphocytes % (Manual) Monocytes % (Manual) Nucleated RBC % Seg Neutrophils # Seg Neutrophils # Man Monocytes # (Manual) PT INR Activated Clotting Time POC ABG pH POC ABG pCO2 POC ABG pO2 Sodium Potassium Chloride Carbon Dioxide BUN Creatinine Glucose POC Glucose 124 H 122 H 120 H Calcium Magnesium Direct Bilirubin AST ALT Alkaline Phosphatase Total Creatine Kinase CK-MB (CK-2) CK-MB (CK-2) Rel Index Troponin T C-Reactive Protein Total Protein Albumin Triglycerides Ur Specific [place] Urine WBC (Auto) Miscellaneous Test 05/06/17 05/06/17 05/06/17 00:16 05:47 11:42 WBC RBC Hgb Hct MCV MCH RDW Plt Count Lymph % (Auto) [place] % (Auto) Eos % (Auto) Baso % (Auto) Lymph # Baso # Seg Neutrophils % Lymphocytes % (Manual) Monocytes % (Manual) Nucleated RBC % Seg Neutrophils # Seg Neutrophils # Man Monocytes # (Manual) PT INR Activated Clotting Time POC ABG pH POC ABG pCO2 POC ABG pO2 Sodium Potassium Chloride Carbon Dioxide BUN Creatinine Glucose POC Glucose 110 H 142 H 120 H Calcium Magnesium Direct Bilirubin AST ALT Alkaline Phosphatase Total Creatine Kinase CK-MB (CK-2) CK-MB (CK-2) Rel Index Troponin T C-Reactive Protein Total Protein Albumin Triglycerides Ur Specific [place] Urine WBC (Auto) Miscellaneous Test 05/06/17 05/07/17 05/07/17 17:46 00:07 05:28 WBC RBC Hgb Hct MCV MCH RDW Plt Count Lymph % (Auto) [place] % (Auto) Eos % (Auto) Baso % (Auto) Lymph # Baso # Seg Neutrophils % Lymphocytes % (Manual) Monocytes % (Manual) Nucleated RBC % Seg Neutrophils # Seg Neutrophils # Man Monocytes # (Manual) PT INR Activated Clotting Time POC ABG pH POC ABG pCO2 POC ABG pO2 Sodium Potassium Chloride Carbon Dioxide BUN Creatinine Glucose POC Glucose 127 H 145 H 124 H Calcium Magnesium Direct Bilirubin AST ALT Alkaline Phosphatase Total Creatine Kinase CK-MB (CK-2) CK-MB (CK-2) Rel Index Troponin T C-Reactive Protein Total Protein Albumin Triglycerides Ur Specific [place] Urine WBC (Auto) Miscellaneous Test 05/07/17 05/07/17 05/08/17 11:17 17:14 00:03 WBC RBC Hgb Hct MCV MCH RDW Plt Count Lymph % (Auto) [place] % (Auto) Eos % (Auto) Baso % (Auto) Lymph # Baso # Seg Neutrophils % Lymphocytes % (Manual) Monocytes % (Manual) Nucleated RBC % Seg Neutrophils # Seg Neutrophils # Man Monocytes # (Manual) PT INR Activated Clotting Time POC ABG pH POC ABG pCO2 POC ABG pO2 Sodium Potassium Chloride Carbon Dioxide BUN Creatinine Glucose POC Glucose 144 H 125 H 122 H Calcium Magnesium Direct Bilirubin AST ALT Alkaline Phosphatase Total Creatine Kinase CK-MB (CK-2) CK-MB (CK-2) Rel Index Troponin T C-Reactive Protein Total Protein Albumin Triglycerides Ur Specific [place] Urine WBC (Auto) Miscellaneous Test 05/08/17 05/08/17 05/08/17 05:43 12:07 18:02 WBC RBC Hgb Hct MCV MCH RDW Plt Count Lymph % (Auto) [place] % (Auto) Eos % (Auto) Baso % (Auto) Lymph # Baso # Seg Neutrophils % Lymphocytes % (Manual) Monocytes % (Manual) Nucleated RBC % Seg Neutrophils # Seg Neutrophils # Man Monocytes # (Manual) PT INR Activated Clotting Time POC ABG pH POC ABG pCO2 POC ABG pO2 Sodium Potassium Chloride Carbon Dioxide BUN Creatinine Glucose POC Glucose 117 H 114 H 129 H Calcium Magnesium Direct Bilirubin AST ALT Alkaline Phosphatase Total Creatine Kinase CK-MB (CK-2) CK-MB (CK-2) Rel Index Troponin T C-Reactive Protein Total Protein Albumin Triglycerides Ur Specific [place] Urine WBC (Auto) Miscellaneous Test 05/08/17 05/09/17 05/09/17 23:53 04:19 05:14 WBC RBC Hgb Hct MCV MCH RDW Plt Count Lymph % (Auto) [place] % (Auto) Eos % (Auto) Baso % (Auto) Lymph # Baso # Seg Neutrophils % Lymphocytes % (Manual) Monocytes % (Manual) Nucleated RBC % Seg Neutrophils # Seg Neutrophils # Man Monocytes # (Manual) PT INR Activated Clotting Time POC ABG pH 7.524 H POC ABG pCO2 34.7 L POC ABG pO2 107 H Sodium Potassium Chloride Carbon Dioxide BUN Creatinine Glucose POC Glucose 125 H 118 H Calcium Magnesium Direct Bilirubin AST ALT Alkaline Phosphatase Total Creatine Kinase CK-MB (CK-2) CK-MB (CK-2) Rel Index Troponin T C-Reactive Protein Total Protein Albumin Triglycerides Ur Specific [place] Urine WBC (Auto) Miscellaneous Test 05/10/17 05/11/17 05/11/17 23:54 05:48 23:50 WBC RBC Hgb Hct MCV MCH RDW Plt Count Lymph % (Auto) [place] % (Auto) Eos % (Auto) Baso % (Auto) Lymph # Baso # Seg Neutrophils % Lymphocytes % (Manual) Monocytes % (Manual) Nucleated RBC % Seg Neutrophils # Seg Neutrophils # Man Monocytes # (Manual) PT INR Activated Clotting Time POC ABG pH POC ABG pCO2 POC ABG pO2 Sodium Potassium Chloride Carbon Dioxide BUN Creatinine Glucose POC Glucose 126 H 137 H 130 H Calcium Magnesium Direct Bilirubin AST ALT Alkaline Phosphatase Total Creatine Kinase CK-MB (CK-2) CK-MB (CK-2) Rel Index Troponin T C-Reactive Protein Total Protein Albumin Triglycerides Ur Specific [place] Urine WBC (Auto) Miscellaneous Test 05/12/17 05/12/17 05/12/17 05:48 11:33 18:00 WBC RBC Hgb Hct MCV MCH RDW Plt Count Lymph % (Auto) [place] % (Auto) Eos % (Auto) Baso % (Auto) Lymph # Baso # Seg Neutrophils % Lymphocytes % (Manual) Monocytes % (Manual) Nucleated RBC % Seg Neutrophils # Seg Neutrophils # Man Monocytes # (Manual) PT INR Activated Clotting Time POC ABG pH POC ABG pCO2 POC ABG pO2 Sodium Potassium Chloride Carbon Dioxide BUN Creatinine Glucose POC Glucose 126 H 116 H 131 H Calcium Magnesium Direct Bilirubin AST ALT Alkaline Phosphatase Total Creatine Kinase CK-MB (CK-2) CK-MB (CK-2) Rel Index Troponin T C-Reactive Protein Total Protein Albumin Triglycerides Ur Specific [place] Urine WBC (Auto) Miscellaneous Test 05/14/17 05/15/17 05/15/17 11:45 11:27 17:42 WBC RBC Hgb Hct MCV MCH RDW Plt Count Lymph % (Auto) [place] % (Auto) Eos % (Auto) Baso % (Auto) Lymph # Baso # Seg Neutrophils % Lymphocytes % (Manual) Monocytes % (Manual) Nucleated RBC % Seg Neutrophils # Seg Neutrophils # Man Monocytes # (Manual) PT INR Activated Clotting Time POC ABG pH POC ABG pCO2 POC ABG pO2 Sodium Potassium Chloride Carbon Dioxide BUN Creatinine Glucose POC Glucose 123 H 129 H 125 H Calcium Magnesium Direct Bilirubin AST ALT Alkaline Phosphatase Total Creatine Kinase CK-MB (CK-2) CK-MB (CK-2) Rel Index Troponin T C-Reactive Protein Total Protein Albumin Triglycerides Ur Specific [place] Urine WBC (Auto) Miscellaneous Test 05/16/17 05/16/17 05/17/17 00:29 06:50 03:45 WBC RBC Hgb 11.7 L Hct 34.8 L MCV MCH RDW 15.5 H Plt Count Lymph % (Auto) [place] % (Auto) 7.7 H Eos % (Auto) Baso % (Auto) Lymph # Baso # Seg Neutrophils % 73.7 H Lymphocytes % (Manual) Monocytes % (Manual) Nucleated RBC % Seg Neutrophils # Seg Neutrophils # Man Monocytes # (Manual) PT INR Activated Clotting Time POC ABG pH POC ABG pCO2 POC ABG pO2 Sodium Potassium Chloride Carbon Dioxide BUN Creatinine Glucose POC Glucose 141 H 138 H Calcium Magnesium Direct Bilirubin AST ALT Alkaline Phosphatase Total Creatine Kinase CK-MB (CK-2) CK-MB (CK-2) Rel Index Troponin T C-Reactive Protein Total Protein Albumin Triglycerides Ur Specific [place] Urine WBC (Auto) Miscellaneous Test 05/17/17 05/20/17 05/23/17 03:45 17:31 23:09 WBC RBC Hgb Hct MCV MCH RDW Plt Count Lymph % (Auto) [place] % (Auto) Eos % (Auto) Baso % (Auto) Lymph # Baso # Seg Neutrophils % Lymphocytes % (Manual) Monocytes % (Manual) Nucleated RBC % Seg Neutrophils # Seg Neutrophils # Man Monocytes # (Manual) PT INR Activated Clotting Time POC ABG pH POC ABG pCO2 POC ABG pO2 Sodium Potassium Chloride Carbon Dioxide BUN Creatinine 0.2 L Glucose 131 H POC Glucose 116 H 122 H Calcium Magnesium Direct Bilirubin AST ALT Alkaline Phosphatase Total Creatine Kinase CK-MB (CK-2) CK-MB (CK-2) Rel Index Troponin T C-Reactive Protein Total Protein Albumin Triglycerides Ur Specific [place] Urine WBC (Auto) Miscellaneous Test 05/24/17 05/26/17 05/27/17 05:37 05:23 01:16 WBC RBC Hgb Hct MCV MCH RDW Plt Count Lymph % (Auto) [place] % (Auto) Eos % (Auto) Baso % (Auto) Lymph # Baso # Seg Neutrophils % Lymphocytes % (Manual) Monocytes % (Manual) Nucleated RBC % Seg Neutrophils # Seg Neutrophils # Man Monocytes # (Manual) PT INR Activated Clotting Time POC ABG pH POC ABG pCO2 POC ABG pO2 Sodium Potassium Chloride Carbon Dioxide BUN Creatinine Glucose POC Glucose 139 H 108 H 126 H Calcium Magnesium Direct Bilirubin AST ALT Alkaline Phosphatase Total Creatine Kinase CK-MB (CK-2) CK-MB (CK-2) Rel Index Troponin T C-Reactive Protein Total Protein Albumin Triglycerides Ur Specific [place] Urine WBC (Auto) Miscellaneous Test 05/27/17 05/27/17 05/29/17 05:33 21:49 04:37 WBC RBC Hgb Hct MCV MCH RDW 15.5 H Plt Count Lymph % (Auto) [place] % (Auto) Eos % (Auto) Baso % (Auto) Lymph # Baso # Seg Neutrophils % Lymphocytes % (Manual) Monocytes % (Manual) Nucleated RBC % Seg Neutrophils # Seg Neutrophils # Man Monocytes # (Manual) PT INR Activated Clotting Time POC ABG pH POC ABG pCO2 POC ABG pO2 Sodium Potassium Chloride Carbon Dioxide BUN Creatinine Glucose POC Glucose 129 H 110 H Calcium Magnesium Direct Bilirubin AST ALT Alkaline Phosphatase Total Creatine Kinase CK-MB (CK-2) CK-MB (CK-2) Rel Index Troponin T C-Reactive Protein Total Protein Albumin Triglycerides Ur Specific [place] Urine WBC (Auto) Miscellaneous Test 05/29/17 06/01/17 04:37 05:28 WBC RBC Hgb Hct MCV MCH RDW Plt Count Lymph % (Auto) [place] % (Auto) Eos % (Auto) Baso % (Auto) Lymph # Baso # Seg Neutrophils % Lymphocytes % (Manual) Monocytes % (Manual) Nucleated RBC % Seg Neutrophils # Seg Neutrophils # Man Monocytes # (Manual) PT INR Activated Clotting Time POC ABG pH POC ABG pCO2 POC ABG pO2 Sodium Potassium Chloride 97.6 L Carbon Dioxide BUN Creatinine 0.2 L Glucose 121 H POC Glucose 133 H Calcium Magnesium Direct Bilirubin AST ALT Alkaline Phosphatase Total Creatine Kinase CK-MB (CK-2) CK-MB (CK-2) Rel Index Troponin T C-Reactive Protein Total Protein Albumin Triglycerides Ur Specific [place] Urine WBC (Auto) Miscellaneous Test
[2017-06-04] MEDS: TRANSDERM-SCOP TD SCH (15:36)
--- NOTE | 2017-06-04 15:59 | Progress Note ---
Assessment and Plan Assessment and plan: 46 YO Male with No PMH presents to ED for evaluation. Pt is unresponsive and unable to provide history. Pt history taken from ED staff and EMS. Pt was at work today and suddenly passed out around 1050 hrs-which was witnessed by patients coworkers. EMS notified, and upon arrival the patient was found to have V Fib. Pt treated IAW ACLS protocol. The patient was given 3 defibrillations, 2 rounds of epinephrine, Narcan, and a half amp of sodium bicarbonate. Pt found to be in respiratory distress and was intubated and placed on vent support. 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 He went on to have emergency cath for STEMI, 100% occlusion of LAD was found and had successful angioplasty and stents placed. 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 Patient does have a trach and PEG per family request. He was found to have right upper extremity DVT for which PICC line which was the offending agents was removed and the patient was put on anticoagulant. He completed a course of antibiotics for pneumonia due to MRSA. At this time the patient's is awaiting insurance, application was done earlier this year. After which he has medical insurance the goal will be to transfer him to an LTAC or SNIF facility. This was discussed with his family and he stated that the cannot care for him at home . At this time, he is on PSV trials with goal to wean to T piece Diagnoses anoxic brain injury/anoxic encephalopathy/Persistent Vegetative State Acute Respiratory failure requiring MV >96 hours Anterior STEMI sp cardiac arrest with V fib Aspiration PNA due to MRSA/Gram positive Sepsis cardiogenic Shock Sepsis/Right lower lobe aspiration pneumonia, most likely due to gram-positive bacteria Hypokalemia Hypernatremia/dehydration/free water deficit RUE DVT, --Severe Protein calorie malnutrition: V. fib arrest status post, Acute Cystitis treated with abx Hypertension History Interval history: Patient is nonresponsive, lacks most reflexes, had fever, no vomiting, no agitation sister states that RUE is swollen Hospitalist Physical - Physical exam Narrative exam: General.: Comatose breathes over the vent HEENT: Moist mucous membranes, no LAD, Neck: supple Cardiac: S1-S2 heard Lungs: clear to auscultation bilaterally Abdomen: soft , nontender, nondistended, bowel sounds positive Extremities: RUE edema Skin: no rash or lesions Neurologic: Patient is in deep coma, has gag reflexs and corneal reflex , decerebrate posturing, pupils are fixed and non reactive, lacks all other reflexes, opens eyes spontaneously, no purposeful movement, does not obey commands - Constitutional Vitals: Temp Pulse Resp BP Pulse Ox 98.3 F 61 14 94/57 97 06/04/17 15:43 06/04/17 15:24 06/04/17 15:00 06/04/17 15:00 06/04/17 15:00 General appearance: Present: other (tracheostomy on vent) Results - Labs CBC & Chem 7: 05/29/17 04:37 05/29/17 04:37 Labs: Laboratory Last Values WBC 8.0 K/mm3 (4.5-11.0) 05/29/17 04:37 RBC 4.52 M/mm3 (3.65-5.03) 05/29/17 04:37 Hgb 13.6 gm/dl (11.8-15.2) 05/29/17 04:37 Hct 40.6 % (35.5-45.6) 05/29/17 04:37 MCV 90 fl (84-94) 05/29/17 04:37 MCH 30 pg (28-32) 05/29/17 04:37 MCHC 33 % (32-34) 05/29/17 04:37 RDW 15.5 % (13.2-15.2) H 05/29/17 04:37 Plt Count 222 K/mm3 (140-440) 05/29/17 04:37 Lymph % (Auto) 15.6 % (13.4-35.0) 05/17/17 03:45 [place] % (Auto) 7.7 % (0.0-7.3) H 05/17/17 03:45 Eos % (Auto) 2.7 % (0.0-4.3) 05/17/17 03:45 Baso % (Auto) 0.3 % (0.0-1.8) 05/17/17 03:45 Lymph # 1.5 K/mm3 (1.2-5.4) 05/17/17 03:45 [place] # 0.7 K/mm3 (0.0-0.8) 05/17/17 03:45 Eos # 0.3 K/mm3 (0.0-0.4) 05/17/17 03:45 Baso # 0.0 K/mm3 (0.0-0.1) 05/17/17 03:45 Add Manual Diff Complete 03/30/17 03:50 Total Counted 100 03/30/17 03:50 Seg Neutrophils % 73.7 % (40.0-70.0) H 05/17/17 03:45 Seg Neuts % (Manual) 65.0 % (40.0-70.0) 03/30/17 03:50 Band Neutrophils % 17.0 % 03/30/17 03:50 Lymphocytes % (Manual) 7.0 % (13.4-35.0) L 03/30/17 03:50 Reactive Lymphs % (Man) 0 % 03/30/17 03:50 Monocytes % (Manual) 7.0 % (0.0-7.3) 03/30/17 03:50 Eosinophils % (Manual) 0 % (0.0-4.3) 03/30/17 03:50 Basophils % (Manual) 0 % (0.0-1.8) 03/30/17 03:50 Metamyelocytes % 4.0 % 03/30/17 03:50 Myelocytes % 0 % 03/30/17 03:50 Promyelocytes % 0 % 03/30/17 03:50 Blast Cells % 0 % 03/30/17 03:50 Nucleated RBC % Not Reportable 03/30/17 03:50 Seg Neutrophils # 6.9 K/mm3 (1.8-7.7) 05/17/17 03:45 Seg Neutrophils # Man 12.7 K/mm3 (1.8-7.7) H 03/30/17 03:50 Band Neutrophils # 3.3 K/mm3 03/30/17 03:50 Lymphocytes # (Manual) 1.4 K/mm3 (1.2-5.4) 03/30/17 03:50 Abs React Lymphs (Man) 0.0 K/mm3 03/30/17 03:50 Monocytes # (Manual) 1.4 K/mm3 (0.0-0.8) H 03/30/17 03:50 Eosinophils # (Manual) 0.0 K/mm3 (0.0-0.4) 03/30/17 03:50 Basophils # (Manual) 0.0 K/mm3 (0.0-0.1) 03/30/17 03:50 Metamyelocytes # 0.8 K/mm3 03/30/17 03:50 Myelocytes # 0.0 K/mm3 03/30/17 03:50 Promyelocytes # 0.0 K/mm3 03/30/17 03:50 Blast Cells # 0.0 K/mm3 03/30/17 03:50 WBC Morphology Not Reportable 03/30/17 03:50 Hypersegmented Neuts Not Reportable 03/30/17 03:50 Hyposegmented Neuts Not Reportable 03/30/17 03:50 Hypogranular Neuts Not Reportable 03/30/17 03:50 Smudge Cells Not Reportable 03/30/17 03:50 Toxic Granulation Not Reportable 03/30/17 03:50 Toxic Vacuolation Not Reportable 03/30/17 03:50 Dohle Bodies Not Reportable 03/30/17 03:50 Pel[place]-Huet Anomaly Not Reportable 03/30/17 03:50 [place]ry Rods Not Reportable 03/30/17 03:50 Platelet Estimate Appears normal 03/30/17 03:50 Clumped Platelets Not Reportable 03/30/17 03:50 Plt Clumps, EDTA Not Reportable 03/30/17 03:50 Large Platelets Not Reportable 03/30/17 03:50 Giant Platelets Not Reportable 03/30/17 03:50 Platelet Satelliting Not Reportable 03/30/17 03:50 Plt Morphology Comment Not Reportable 03/30/17 03:50 RBC Morphology Not Reportable 03/30/17 03:50 Dimorphic RBCs Not Reportable 03/30/17 03:50 Polychromasia Not Reportable 03/30/17 03:50 Hypochromasia Not Reportable 03/30/17 03:50 Poikilocytosis Not Reportable 03/30/17 03:50 Anisocytosis Few 03/30/17 03:50 Microcytosis Not Reportable 03/30/17 03:50 Macrocytosis Not Reportable 03/30/17 03:50 Spherocytes Not Reportable 03/30/17 03:50 Pappenheimer Bodies Not Reportable 03/30/17 03:50 Sickle Cells Not Reportable 03/30/17 03:50 Target Cells Not Reportable 03/30/17 03:50 Tear Drop Cells Not Reportable 03/30/17 03:50 Ovalocytes Not Reportable 03/30/17 03:50 Helmet Cells Not Reportable 03/30/17 03:50 [place] Bodies Not Reportable 03/30/17 03:50 [place] Rings Not Reportable 03/30/17 03:50 [place] Cells Not Reportable 03/30/17 03:50 Bite Cells Not Reportable 03/30/17 03:50 Crenated Cell Not Reportable 03/30/17 03:50 Elliptocytes Not Reportable 03/30/17 03:50 Acanthocytes (Spur) Not Reportable 03/30/17 03:50 Rouleaux Not Reportable 03/30/17 03:50 Hemoglobin C Crystals Not Reportable 03/30/17 03:50 Schistocytes Not Reportable 03/30/17 03:50 Malaria parasites Not Reportable 03/30/17 03:50 [place] Bodies Not Reportable 03/30/17 03:50 Hem Pathologist Commnt No 03/30/17 03:50 PT 14.9 Sec. (12.2-14.9) 04/10/17 04:16 INR 1.11 (0.87-1.13) 04/10/17 04:16 APTT 27.8 Sec. (24.2-36.6) 04/10/17 04:16 Activated Clotting Time 92 (74-137) 03/29/17 17:47 POC ABG pH 7.524 (7.35-7.45) H 05/09/17 04:19 POC ABG pCO2 34.7 (35-45) L 05/09/17 04:19 POC ABG pO2 107 (80-105) H 05/09/17 04:19 POC ABG HCO3 28.6 05/09/17 04:19 POC ABG Total CO2 30 05/09/17 04:19 POC ABG O2 Sat 99 05/09/17 04:19 POC ABG Base Excess 6 05/09/17 04:19 FiO2 25 % 05/09/17 04:19 Sodium 138 mmol/L (137-145) 05/29/17 04:37 Potassium 4.2 mmol/L (3.6-5.0) 05/29/17 04:37 Chloride 97.6 mmol/L (98-107) L 05/29/17 04:37 Carbon Dioxide 23 mmol/L (22-30) 05/29/17 04:37 Anion Gap 22 mmol/L 05/29/17 04:37 BUN 14 mg/dL (9-20) 05/29/17 04:37 Creatinine 0.2 mg/dL (0.8-1.5) L 05/29/17 04:37 Estimated GFR > 60 ml/min 05/29/17 04:37 BUN/Creatinine Ratio 70 % 05/29/17 04:37 Glucose 121 mg/dL (75-100) H 05/29/17 04:37 POC Glucose 133 (70-105) H 06/01/17 05:28 Calcium 9.5 mg/dL (8.4-10.2) 05/29/17 04:37 Phosphorus 3.50 mg/dL (2.5-4.5) 04/13/17 04:45 Magnesium 1.80 mg/dL (1.7-2.3) 05/01/17 05:30 Total Bilirubin 0.60 mg/dL (0.1-1.2) 05/01/17 05:30 Direct Bilirubin < 0.2 mg/dL (0-0.2) 04/27/17 05:40 Indirect Bilirubin 0.3 mg/dL 04/25/17 04:51 AST 71 units/L (5-40) H 05/01/17 05:30 ALT 125 units/L (7-56) H 05/01/17 05:30 Alkaline Phosphatase 158 units/L (35-129) H 05/01/17 05:30 Total Creatine Kinase 1404 units/L (55-170) H 04/12/17 21:36 CK-MB (CK-2) 8.0 ng/mL (0.0-4.0) H 04/12/17 21:36 CK-MB (CK-2) Rel Index 0.5 (0-4) 04/12/17 21:36 Troponin T 0.767 ng/mL (0.00-0.029) H* 04/12/17 21:36 C-Reactive Protein 21.80 mg/dL (0.00-1.30) H 03/30/17 16:04 Total Protein 6.7 g/dL (6.3-8.2) 05/01/17 05:30 Albumin 2.6 g/dL (3.9-5) L 05/01/17 05:30 Albumin/Globulin Ratio 0.6 % 05/01/17 05:30 Triglycerides 151 mg/dL (2-149) H 04/01/17 04:29 Cholesterol 164 mg/dL (50-199) 03/29/17 19:52 LDL Cholesterol Direct 81 mg/dL (50-130) 03/29/17 19:52 HDL Cholesterol 44 mg/dL (40-59) 03/29/17 19:52 Cholesterol/HDL Ratio 3.72 % 03/29/17 19:52 Urine Color [place] (Yellow) 04/21/17 22:00 Urine Turbidity Clear (Clear) 04/21/17 22:00 Urine pH 5.0 (5.0-7.0) 04/21/17 22:00 Ur Specific [place] 1.029 (1.003-1.030) 04/21/17 22:00 Urine Protein 30 mg/dl mg/dL (Negative) 04/21/17 22:00 Urine Glucose (UA) Neg mg/dL (Negative) 04/21/17 22:00 Urine Ketones Neg mg/dL (Negative) 04/21/17 22:00 Urine Blood Mod (Negative) 04/21/17 22:00 Urine Nitrite Neg (Negative) 04/21/17 22:00 Urine Bilirubin Neg (Negative) 04/21/17 22:00 Urine Urobilinogen 4.0 mg/dL (<2.0) 04/21/17 22:00 Ur Leukocyte Esterase Neg (Negative) 04/21/17 22:00 Urine WBC (Auto) 10.0 /HPF (0.0-6.0) H 04/21/17 22:00 Urine RBC (Auto) 44.0 /HPF (0.0-6.0) 04/21/17 22:00 U Epithel Cells (Auto) < 1.0 /HPF (0-13.0) 04/21/17 22:00 Amorphous Crystals 1+ 03/30/17 09:45 Urine Mucus 3+ /HPF 04/21/17 22:00 Urine Opiates Screen Presumptive negative 03/30/17 09:45 Urine Methadone Screen Presumptive negative 03/30/17 09:45 Ur Barbiturates Screen Presumptive negative 03/30/17 09:45 Ur Phencyclidine Scrn Presumptive negative 03/30/17 09:45 Ur Amphetamines Screen Presumptive positive 03/30/17 09:45 U Benzodiazepines Scrn Presumptive positive 03/30/17 09:45 Urine Cocaine Screen Presumptive negative 03/30/17 09:45 U Marijuana (THC) Screen Presumptive negative 03/30/17 09:45 Drugs of Abuse Note Disclamer 03/30/17 09:45 Miscellaneous Test Flexitest 1 H 04/25/17 07:07 Blood Type O POSITIVE 03/29/17 11:35 Antibody Screen Negative 03/29/17 11:35
--- NOTE | 2017-06-05 09:35 | Progress Note ---
Assessment and Plan Out of hospital cardiac arrest Hypoxic encephalopathy. DVT STEMI-on Eliquis, Plavix, aspirin s/p C with stent placement Prior MRSA,RLL . No fever, off antibiotics Recommendations Continue SBT/PSV/CPAP Trach care suction Monitor fever changes Dr. Ham had long conversation with family regarding goals of care last week. No family members present at the bedside for additional update. Critical care time with a 31 minutes of [id number] evaluation and coordination of care Subjective Date of service: 06/05/17 Principal diagnosis: coma,ARV,s/p arrest Interval history: N/a Objective Vital Signs - 12hr 06/04/17 06/04/17 06/04/17 22:00 23:00 23:50 Temperature 99.8 F H Pulse Rate 81 79 Pulse Rate [ From Monitor] Respiratory 21 20 Rate Blood Pressure 139/87 125/79 O2 Sat by Pulse 99 99 Oximetry O2 Sat by Pulse Oximetry [ Assessment] 06/04/17 06/04/17 06/05/17 23:56 23:59 00:00 Temperature Pulse Rate 76 83 Pulse Rate [ 62 From Monitor] Respiratory 16 Rate Blood Pressure 127/78 122/77 O2 Sat by Pulse 99 96 Oximetry O2 Sat by Pulse 99 Oximetry [ Assessment] 06/05/17 06/05/17 06/05/17 01:00 02:00 03:00 Temperature Pulse Rate 76 74 72 Pulse Rate [ From Monitor] Respiratory 13 12 14 Rate Blood Pressure 114/64 104/58 105/57 O2 Sat by Pulse 91 92 93 Oximetry O2 Sat by Pulse Oximetry [ Assessment] 06/05/17 06/05/17 06/05/17 04:00 05:01 05:30 Temperature 98.6 F Pulse Rate 74 73 72 Pulse Rate [ 73 From Monitor] Respiratory 13 15 Rate Blood Pressure 104/56 104/62 103/61 O2 Sat by Pulse 94 97 99 Oximetry O2 Sat by Pulse Oximetry [ Assessment] 06/05/17 06/05/17 06/05/17 06:00 07:00 08:00 Temperature Pulse Rate 74 69 71 Pulse Rate [ From Monitor] Respiratory 26 H 16 13 Rate Blood Pressure 122/72 99/64 99/61 O2 Sat by Pulse 94 93 90 Oximetry O2 Sat by Pulse Oximetry [ Assessment] 06/05/17 09:00 Temperature Pulse Rate 77 Pulse Rate [ From Monitor] Respiratory 15 Rate Blood Pressure 112/70 O2 Sat by Pulse 92 Oximetry O2 Sat by Pulse Oximetry [ Assessment] Constitutional: no acute distress, comatose Eyes: non-icteric ENT: oropharynx moist Neck: supple, other (tracheotomy ) Effort: normal Ascultation: Bilateral: clear, diminished breath sounds, other (coarse BS bilaterally) Percussion: Bilateral: not dull Cardiovascular: regular rate and rhythm Gastrointestinal: normoactive bowel sounds, soft, non-tender, non-distended Integumentary: normal Extremities: no cyanosis, no edema, pink and warm Neurologic: other (very limited exam but patient opened eyes spontaneously when called, no posturing, no purposeful movement) CBC and BMP: 05/29/17 04:37 05/29/17 04:37 ABG, PT/INR, D-dimer: ABG POC ABG pH 7.524 (7.35-7.45) H 05/09/17 04:19 POC ABG pCO2 34.7 (35-45) L 05/09/17 04:19 POC ABG pO2 107 (80-105) H 05/09/17 04:19 POC ABG HCO3 28.6 05/09/17 04:19 POC ABG Total CO2 30 05/09/17 04:19 POC ABG O2 Sat 99 05/09/17 04:19 PT/INR, D-dimer PT 14.9 Sec. (12.2-14.9) 04/10/17 04:16 INR 1.11 (0.87-1.13) 04/10/17 04:16 Abnormal lab findings: Abnormal Labs 03/29/17 03/29/17 03/29/17 11:35 11:35 11:40 WBC RBC Hgb Hct MCV 98 H MCH 33 H RDW Plt Count Lymph % (Auto) [place] % (Auto) Eos % (Auto) Baso % (Auto) Lymph # Baso # Seg Neutrophils % Lymphocytes % (Manual) Monocytes % (Manual) 9.0 H Nucleated RBC % 1.0 H Seg Neutrophils # Seg Neutrophils # Man Monocytes # (Manual) 0.9 H PT 15.8 H INR 1.20 H Activated Clotting Time POC ABG pH POC ABG pCO2 POC ABG pO2 Sodium Potassium 2.7 L* Chloride 95.3 L Carbon Dioxide 17 L BUN Creatinine Glucose 435 H POC Glucose Calcium Magnesium Direct Bilirubin AST ALT Alkaline Phosphatase Total Creatine Kinase CK-MB (CK-2) CK-MB (CK-2) Rel Index Troponin T C-Reactive Protein Total Protein 6.1 L Albumin 3.5 L Triglycerides Ur Specific [place] Urine WBC (Auto) Miscellaneous Test 03/29/17 03/29/17 03/29/17 12:34 13:10 13:25 WBC RBC Hgb Hct MCV MCH RDW Plt Count Lymph % (Auto) [place] % (Auto) Eos % (Auto) Baso % (Auto) Lymph # Baso # Seg Neutrophils % Lymphocytes % (Manual) Monocytes % (Manual) Nucleated RBC % Seg Neutrophils # Seg Neutrophils # Man Monocytes # (Manual) PT INR Activated Clotting Time 142 H 169 H 175 H POC ABG pH POC ABG pCO2 POC ABG pO2 Sodium Potassium Chloride Carbon Dioxide BUN Creatinine Glucose POC Glucose Calcium Magnesium Direct Bilirubin AST ALT Alkaline Phosphatase Total Creatine Kinase CK-MB (CK-2) CK-MB (CK-2) Rel Index Troponin T C-Reactive Protein Total Protein Albumin Triglycerides Ur Specific [place] Urine WBC (Auto) Miscellaneous Test 03/29/17 03/29/17 03/29/17 14:50 15:18 19:52 WBC RBC Hgb Hct MCV MCH RDW Plt Count Lymph % (Auto) [place] % (Auto) Eos % (Auto) Baso % (Auto) Lymph # Baso # Seg Neutrophils % Lymphocytes % (Manual) Monocytes % (Manual) Nucleated RBC % Seg Neutrophils # Seg Neutrophils # Man Monocytes # (Manual) PT INR Activated Clotting Time 175 H POC ABG pH 7.293 L POC ABG pCO2 POC ABG pO2 602 H Sodium Potassium Chloride Carbon Dioxide BUN Creatinine Glucose POC Glucose Calcium Magnesium Direct Bilirubin AST ALT Alkaline Phosphatase Total Creatine Kinase 7263 H CK-MB (CK-2) > 300.0 H CK-MB (CK-2) Rel Index 4.1 H Troponin T 8.080 H* D C-Reactive Protein Total Protein Albumin Triglycerides 195 H Ur Specific [place] Urine WBC (Auto) Miscellaneous Test 03/30/17 03/30/17 03/30/17 03:50 03:50 06:19 WBC 19.5 H RBC Hgb Hct MCV MCH RDW Plt Count Lymph % (Auto) [place] % (Auto) Eos % (Auto) Baso % (Auto) Lymph # Baso # Seg Neutrophils % Lymphocytes % (Manual) 7.0 L Monocytes % (Manual) Nucleated RBC % Seg Neutrophils # Seg Neutrophils # Man 12.7 H Monocytes # (Manual) 1.4 H PT INR Activated Clotting Time POC ABG pH POC ABG pCO2 28.2 L POC ABG pO2 108 H Sodium Potassium Chloride 108.9 H Carbon Dioxide 15 L BUN 25 H Creatinine Glucose 158 H POC Glucose Calcium 8.1 L Magnesium Direct Bilirubin AST ALT Alkaline Phosphatase Total Creatine Kinase 7963 H CK-MB (CK-2) > 300.0 H CK-MB (CK-2) Rel Index Troponin T 6.850 H* C-Reactive Protein Total Protein Albumin Triglycerides Ur Specific [place] Urine WBC (Auto) Miscellaneous Test 03/30/17 03/30/17 03/31/17 09:45 16:04 02:19 WBC RBC Hgb Hct MCV MCH RDW Plt Count Lymph % (Auto) [place] % (Auto) Eos % (Auto) Baso % (Auto) Lymph # Baso # Seg Neutrophils % Lymphocytes % (Manual) Monocytes % (Manual) Nucleated RBC % Seg Neutrophils # Seg Neutrophils # Man Monocytes # (Manual) PT INR Activated Clotting Time POC ABG pH POC ABG pCO2 POC ABG pO2 Sodium Potassium Chloride Carbon Dioxide BUN Creatinine Glucose POC Glucose 137 H Calcium Magnesium Direct Bilirubin AST ALT Alkaline Phosphatase Total Creatine Kinase CK-MB (CK-2) CK-MB (CK-2) Rel Index Troponin T C-Reactive Protein 21.80 H Total Protein Albumin Triglycerides Ur Specific [place] 1.031 H Urine WBC (Auto) Miscellaneous Test 03/31/17 03/31/17 03/31/17 03:57 06:54 09:22 WBC RBC Hgb Hct MCV MCH RDW Plt Count Lymph % (Auto) [place] % (Auto) Eos % (Auto) Baso % (Auto) Lymph # Baso # Seg Neutrophils % Lymphocytes % (Manual) Monocytes % (Manual) Nucleated RBC % Seg Neutrophils # Seg Neutrophils # Man Monocytes # (Manual) PT INR Activated Clotting Time POC ABG pH 7.475 H POC ABG pCO2 25.4 L POC ABG pO2 62 L Sodium Potassium Chloride Carbon Dioxide 19 L BUN 22 H Creatinine 0.6 L Glucose 148 H POC Glucose 143 H Calcium 8.3 L Magnesium Direct Bilirubin AST ALT Alkaline Phosphatase Total Creatine Kinase CK-MB (CK-2) CK-MB (CK-2) Rel Index Troponin T C-Reactive Protein Total Protein Albumin Triglycerides Ur Specific [place] Urine WBC (Auto) Miscellaneous Test 03/31/17 03/31/17 03/31/17 11:40 17:47 23:38 WBC RBC Hgb Hct MCV MCH RDW Plt Count Lymph % (Auto) [place] % (Auto) Eos % (Auto) Baso % (Auto) Lymph # Baso # Seg Neutrophils % Lymphocytes % (Manual) Monocytes % (Manual) Nucleated RBC % Seg Neutrophils # Seg Neutrophils # Man Monocytes # (Manual) PT INR Activated Clotting Time POC ABG pH POC ABG pCO2 POC ABG pO2 Sodium Potassium Chloride Carbon Dioxide BUN Creatinine Glucose POC Glucose 127 H 137 H 148 H Calcium Magnesium Direct Bilirubin AST ALT Alkaline Phosphatase Total Creatine Kinase CK-MB (CK-2) CK-MB (CK-2) Rel Index Troponin T C-Reactive Protein Total Protein Albumin Triglycerides Ur Specific [place] Urine WBC (Auto) Miscellaneous Test 04/01/17 04/01/17 04/01/17 04:29 05:01 11:54 WBC RBC Hgb Hct MCV MCH RDW Plt Count Lymph % (Auto) [place] % (Auto) Eos % (Auto) Baso % (Auto) Lymph # Baso # Seg Neutrophils % Lymphocytes % (Manual) Monocytes % (Manual) Nucleated RBC % Seg Neutrophils # Seg Neutrophils # Man Monocytes # (Manual) PT INR Activated Clotting Time POC ABG pH 7.513 H POC ABG pCO2 22.1 L POC ABG pO2 64 L Sodium Potassium Chloride Carbon Dioxide BUN Creatinine Glucose POC Glucose 121 H Calcium Magnesium Direct Bilirubin AST ALT Alkaline Phosphatase Total Creatine Kinase CK-MB (CK-2) CK-MB (CK-2) Rel Index Troponin T C-Reactive Protein Total Protein Albumin Triglycerides 151 H Ur Specific [place] Urine WBC (Auto) Miscellaneous Test 04/01/17 04/02/17 04/02/17 18:17 00:11 04:52 WBC RBC Hgb Hct MCV MCH RDW Plt Count Lymph % (Auto) [place] % (Auto) Eos % (Auto) Baso % (Auto) Lymph # Baso # Seg Neutrophils % Lymphocytes % (Manual) Monocytes % (Manual) Nucleated RBC % Seg Neutrophils # Seg Neutrophils # Man Monocytes # (Manual) PT INR Activated Clotting Time POC ABG pH 7.524 H POC ABG pCO2 25.5 L POC ABG pO2 66 L Sodium Potassium Chloride Carbon Dioxide BUN Creatinine Glucose POC Glucose 117 H 122 H Calcium Magnesium Direct Bilirubin AST ALT Alkaline Phosphatase Total Creatine Kinase CK-MB (CK-2) CK-MB (CK-2) Rel Index Troponin T C-Reactive Protein Total Protein Albumin Triglycerides Ur Specific [place] Urine WBC (Auto) Miscellaneous Test 04/02/17 04/02/17 04/02/17 05:18 10:41 12:19 WBC RBC Hgb Hct MCV MCH RDW Plt Count Lymph % (Auto) [place] % (Auto) Eos % (Auto) Baso % (Auto) Lymph # Baso # Seg Neutrophils % Lymphocytes % (Manual) Monocytes % (Manual) Nucleated RBC % Seg Neutrophils # Seg Neutrophils # Man Monocytes # (Manual) PT INR Activated Clotting Time POC ABG pH 7.534 H POC ABG pCO2 27.4 L POC ABG pO2 Sodium Potassium Chloride Carbon Dioxide BUN Creatinine Glucose POC Glucose 132 H 129 H Calcium Magnesium Direct Bilirubin AST ALT Alkaline Phosphatase Total Creatine Kinase CK-MB (CK-2) CK-MB (CK-2) Rel Index Troponin T C-Reactive Protein Total Protein Albumin Triglycerides Ur Specific [place] Urine WBC (Auto) Miscellaneous Test 04/02/17 04/03/17 04/03/17 18:05 00:08 05:09 WBC RBC Hgb Hct MCV MCH RDW Plt Count Lymph % (Auto) [place] % (Auto) Eos % (Auto) Baso % (Auto) Lymph # Baso # Seg Neutrophils % Lymphocytes % (Manual) Monocytes % (Manual) Nucleated RBC % Seg Neutrophils # Seg Neutrophils # Man Monocytes # (Manual) PT INR Activated Clotting Time POC ABG pH 7.455 H POC ABG pCO2 33.2 L POC ABG pO2 120 H Sodium Potassium Chloride Carbon Dioxide BUN Creatinine Glucose POC Glucose 136 H 128 H Calcium Magnesium Direct Bilirubin AST ALT Alkaline Phosphatase Total Creatine Kinase CK-MB (CK-2) CK-MB (CK-2) Rel Index Troponin T C-Reactive Protein Total Protein Albumin Triglycerides Ur Specific [place] Urine WBC (Auto) Miscellaneous Test 04/03/17 04/03/17 04/03/17 06:32 11:54 12:16 WBC 11.9 H RBC Hgb Hct MCV MCH RDW Plt Count 125 L Lymph % (Auto) 4.8 L [place] % (Auto) Eos % (Auto) Baso % (Auto) Lymph # 0.6 L Baso # Seg Neutrophils % 86.7 H Lymphocytes % (Manual) Monocytes % (Manual) Nucleated RBC % Seg Neutrophils # 10.3 H Seg Neutrophils # Man Monocytes # (Manual) PT INR Activated Clotting Time POC ABG pH POC ABG pCO2 POC ABG pO2 Sodium Potassium Chloride Carbon Dioxide BUN Creatinine Glucose POC Glucose 138 H 143 H Calcium Magnesium Direct Bilirubin AST ALT Alkaline Phosphatase Total Creatine Kinase CK-MB (CK-2) CK-MB (CK-2) Rel Index Troponin T C-Reactive Protein Total Protein Albumin Triglycerides Ur Specific [place] Urine WBC (Auto) Miscellaneous Test 04/03/17 04/03/17 04/04/17 17:33 23:59 04:34 WBC RBC Hgb Hct MCV MCH RDW Plt Count Lymph % (Auto) [place] % (Auto) Eos % (Auto) Baso % (Auto) Lymph # Baso # Seg Neutrophils % Lymphocytes % (Manual) Monocytes % (Manual) Nucleated RBC % Seg Neutrophils # Seg Neutrophils # Man Monocytes # (Manual) PT INR Activated Clotting Time POC ABG pH 7.457 H POC ABG pCO2 29.8 L POC ABG pO2 76 L Sodium Potassium Chloride Carbon Dioxide BUN Creatinine Glucose POC Glucose 130 H 155 H Calcium Magnesium Direct Bilirubin AST ALT Alkaline Phosphatase Total Creatine Kinase CK-MB (CK-2) CK-MB (CK-2) Rel Index Troponin T C-Reactive Protein Total Protein Albumin Triglycerides Ur Specific [place] Urine WBC (Auto) Miscellaneous Test 04/04/17 04/04/17 04/04/17 05:27 12:22 18:18 WBC RBC Hgb Hct MCV MCH RDW Plt Count Lymph % (Auto) [place] % (Auto) Eos % (Auto) Baso % (Auto) Lymph # Baso # Seg Neutrophils % Lymphocytes % (Manual) Monocytes % (Manual) Nucleated RBC % Seg Neutrophils # Seg Neutrophils # Man Monocytes # (Manual) PT INR Activated Clotting Time POC ABG pH POC ABG pCO2 POC ABG pO2 Sodium Potassium Chloride Carbon Dioxide BUN Creatinine Glucose POC Glucose 164 H 146 H 130 H Calcium Magnesium Direct Bilirubin AST ALT Alkaline Phosphatase Total Creatine Kinase CK-MB (CK-2) CK-MB (CK-2) Rel Index Troponin T C-Reactive Protein Total Protein Albumin Triglycerides Ur Specific [place] Urine WBC (Auto) Miscellaneous Test 04/05/17 04/05/17 04/05/17 04:43 05:28 11:36 WBC RBC Hgb Hct MCV MCH RDW Plt Count Lymph % (Auto) [place] % (Auto) Eos % (Auto) Baso % (Auto) Lymph # Baso # Seg Neutrophils % Lymphocytes % (Manual) Monocytes % (Manual) Nucleated RBC % Seg Neutrophils # Seg Neutrophils # Man Monocytes # (Manual) PT INR Activated Clotting Time POC ABG pH 7.479 H POC ABG pCO2 33.5 L POC ABG pO2 76 L Sodium Potassium Chloride Carbon Dioxide BUN Creatinine Glucose POC Glucose 145 H 136 H Calcium Magnesium Direct Bilirubin AST ALT Alkaline Phosphatase Total Creatine Kinase CK-MB (CK-2) CK-MB (CK-2) Rel Index Troponin T C-Reactive Protein Total Protein Albumin Triglycerides Ur Specific [place] Urine WBC (Auto) Miscellaneous Test 04/05/17 04/06/17 04/06/17 17:58 00:16 05:26 WBC RBC Hgb Hct MCV MCH RDW Plt Count Lymph % (Auto) [place] % (Auto) Eos % (Auto) Baso % (Auto) Lymph # Baso # Seg Neutrophils % Lymphocytes % (Manual) Monocytes % (Manual) Nucleated RBC % Seg Neutrophils # Seg Neutrophils # Man Monocytes # (Manual) PT INR Activated Clotting Time POC ABG pH POC ABG pCO2 POC ABG pO2 Sodium Potassium Chloride Carbon Dioxide BUN Creatinine Glucose POC Glucose 130 H 159 H 146 H Calcium Magnesium Direct Bilirubin AST ALT Alkaline Phosphatase Total Creatine Kinase CK-MB (CK-2) CK-MB (CK-2) Rel Index Troponin T C-Reactive Protein Total Protein Albumin Triglycerides Ur Specific [place] Urine WBC (Auto) Miscellaneous Test 04/06/17 04/06/17 04/07/17 13:11 16:54 11:45 WBC RBC Hgb Hct MCV MCH RDW Plt Count Lymph % (Auto) [place] % (Auto) Eos % (Auto) Baso % (Auto) Lymph # Baso # Seg Neutrophils % Lymphocytes % (Manual) Monocytes % (Manual) Nucleated RBC % Seg Neutrophils # Seg Neutrophils # Man Monocytes # (Manual) PT INR Activated Clotting Time POC ABG pH 7.517 H POC ABG pCO2 32.1 L POC ABG pO2 Sodium Potassium Chloride Carbon Dioxide BUN Creatinine Glucose POC Glucose 132 H 123 H Calcium Magnesium Direct Bilirubin AST ALT Alkaline Phosphatase Total Creatine Kinase CK-MB (CK-2) CK-MB (CK-2) Rel Index Troponin T C-Reactive Protein Total Protein Albumin Triglycerides Ur Specific [place] Urine WBC (Auto) Miscellaneous Test 01/03/1304/07/17 04/07/17 12:51 17:40 23:55 WBC RBC Hgb Hct MCV MCH RDW Plt Count Lymph % (Auto) [place] % (Auto) Eos % (Auto) Baso % (Auto) Lymph # Baso # Seg Neutrophils % Lymphocytes % (Manual) Monocytes % (Manual) Nucleated RBC % Seg Neutrophils # Seg Neutrophils # Man Monocytes # (Manual) PT INR Activated Clotting Time POC ABG pH POC ABG pCO2 POC ABG pO2 Sodium Potassium Chloride Carbon Dioxide BUN Creatinine Glucose POC Glucose 138 H 154 H 143 H Calcium Magnesium Direct Bilirubin AST ALT Alkaline Phosphatase Total Creatine Kinase CK-MB (CK-2) CK-MB (CK-2) Rel Index Troponin T C-Reactive Protein Total Protein Albumin Triglycerides Ur Specific [place] Urine WBC (Auto) Miscellaneous Test 04/08/17 04/08/17 04/08/17 05:27 11:14 17:44 WBC RBC Hgb Hct MCV MCH RDW Plt Count Lymph % (Auto) [place] % (Auto) Eos % (Auto) Baso % (Auto) Lymph # Baso # Seg Neutrophils % Lymphocytes % (Manual) Monocytes % (Manual) Nucleated RBC % Seg Neutrophils # Seg Neutrophils # Man Monocytes # (Manual) PT INR Activated Clotting Time POC ABG pH POC ABG pCO2 POC ABG pO2 Sodium Potassium Chloride Carbon Dioxide BUN Creatinine Glucose POC Glucose 142 H 153 H 129 H Calcium Magnesium Direct Bilirubin AST ALT Alkaline Phosphatase Total Creatine Kinase CK-MB (CK-2) CK-MB (CK-2) Rel Index Troponin T C-Reactive Protein Total Protein Albumin Triglycerides Ur Specific [place] Urine WBC (Auto) Miscellaneous Test 04/09/17 04/09/17 04/09/17 08:20 11:21 17:37 WBC RBC Hgb Hct MCV MCH RDW Plt Count Lymph % (Auto) [place] % (Auto) Eos % (Auto) Baso % (Auto) Lymph # Baso # Seg Neutrophils % Lymphocytes % (Manual) Monocytes % (Manual) Nucleated RBC % Seg Neutrophils # Seg Neutrophils # Man Monocytes # (Manual) PT INR Activated Clotting Time POC ABG pH POC ABG pCO2 POC ABG pO2 Sodium 147 H Potassium Chloride 108.8 H Carbon Dioxide BUN 39 H Creatinine 0.5 L Glucose 138 H POC Glucose 152 H 109 H Calcium Magnesium Direct Bilirubin AST ALT Alkaline Phosphatase Total Creatine Kinase CK-MB (CK-2) CK-MB (CK-2) Rel Index Troponin T C-Reactive Protein Total Protein Albumin Triglycerides Ur Specific [place] Urine WBC (Auto) Miscellaneous Test 04/10/17 04/10/17 04/10/17 00:13 04:16 04:16 WBC RBC Hgb 11.5 L Hct MCV 96 H MCH RDW Plt Count 103 L Lymph % (Auto) 11.1 L [place] % (Auto) Eos % (Auto) Baso % (Auto) Lymph # Baso # Seg Neutrophils % 81.5 H Lymphocytes % (Manual) Monocytes % (Manual) Nucleated RBC % Seg Neutrophils # 8.8 H Seg Neutrophils # Man Monocytes # (Manual) PT INR Activated Clotting Time POC ABG pH POC ABG pCO2 POC ABG pO2 Sodium 148 H Potassium Chloride 109.0 H Carbon Dioxide BUN 36 H Creatinine 0.5 L Glucose 131 H POC Glucose 127 H Calcium 8.1 L Magnesium 2.40 H Direct Bilirubin AST 206 H ALT 228 H Alkaline Phosphatase 178 H Total Creatine Kinase CK-MB (CK-2) CK-MB (CK-2) Rel Index Troponin T C-Reactive Protein Total Protein Albumin 2.8 L Triglycerides Ur Specific [place] Urine WBC (Auto) Miscellaneous Test 04/10/17 04/10/17 04/10/17 06:01 11:57 18:27 WBC RBC Hgb Hct MCV MCH RDW Plt Count Lymph % (Auto) [place] % (Auto) Eos % (Auto) Baso % (Auto) Lymph # Baso # Seg Neutrophils % Lymphocytes % (Manual) Monocytes % (Manual) Nucleated RBC % Seg Neutrophils # Seg Neutrophils # Man Monocytes # (Manual) PT INR Activated Clotting Time POC ABG pH POC ABG pCO2 POC ABG pO2 Sodium Potassium Chloride Carbon Dioxide BUN Creatinine Glucose POC Glucose 108 H 154 H 130 H Calcium Magnesium Direct Bilirubin AST ALT Alkaline Phosphatase Total Creatine Kinase CK-MB (CK-2) CK-MB (CK-2) Rel Index Troponin T C-Reactive Protein Total Protein Albumin Triglycerides Ur Specific [place] Urine WBC (Auto) Miscellaneous Test 04/11/17 04/11/17 04/12/17 12:25 17:10 00:22 WBC RBC Hgb Hct MCV MCH RDW Plt Count Lymph % (Auto) [place] % (Auto) Eos % (Auto) Baso % (Auto) Lymph # Baso # Seg Neutrophils % Lymphocytes % (Manual) Monocytes % (Manual) Nucleated RBC % Seg Neutrophils # Seg Neutrophils # Man Monocytes # (Manual) PT INR Activated Clotting Time POC ABG pH POC ABG pCO2 POC ABG pO2 Sodium Potassium Chloride Carbon Dioxide BUN Creatinine Glucose POC Glucose 107 H 129 H 128 H Calcium Magnesium Direct Bilirubin AST ALT Alkaline Phosphatase Total Creatine Kinase CK-MB (CK-2) CK-MB (CK-2) Rel Index Troponin T C-Reactive Protein Total Protein Albumin Triglycerides Ur Specific [place] Urine WBC (Auto) Miscellaneous Test 04/12/17 04/12/17 04/12/17 05:00 11:57 17:47 WBC RBC Hgb Hct MCV MCH RDW Plt Count Lymph % (Auto) [place] % (Auto) Eos % (Auto) Baso % (Auto) Lymph # Baso # Seg Neutrophils % Lymphocytes % (Manual) Monocytes % (Manual) Nucleated RBC % Seg Neutrophils # Seg Neutrophils # Man Monocytes # (Manual) PT INR Activated Clotting Time POC ABG pH POC ABG pCO2 POC ABG pO2 Sodium Potassium Chloride Carbon Dioxide BUN Creatinine Glucose POC Glucose 140 H 142 H Calcium Magnesium Direct Bilirubin AST 158 H ALT 184 H Alkaline Phosphatase 170 H Total Creatine Kinase CK-MB (CK-2) CK-MB (CK-2) Rel Index Troponin T C-Reactive Protein Total Protein Albumin 2.8 L Triglycerides Ur Specific [place] Urine WBC (Auto) Miscellaneous Test 04/12/17 04/12/17 04/13/17 21:36 21:36 01:37 WBC RBC Hgb Hct MCV MCH RDW Plt Count Lymph % (Auto) [place] % (Auto) Eos % (Auto) Baso % (Auto) Lymph # Baso # Seg Neutrophils % Lymphocytes % (Manual) Monocytes % (Manual) Nucleated RBC % Seg Neutrophils # Seg Neutrophils # Man Monocytes # (Manual) PT INR Activated Clotting Time POC ABG pH POC ABG pCO2 POC ABG pO2 Sodium Potassium Chloride Carbon Dioxide BUN Creatinine Glucose POC Glucose 126 H Calcium Magnesium Direct Bilirubin AST ALT Alkaline Phosphatase Total Creatine Kinase 1404 H CK-MB (CK-2) 8.0 H CK-MB (CK-2) Rel Index Troponin T 0.767 H* C-Reactive Protein Total Protein Albumin Triglycerides Ur Specific [place] Urine WBC (Auto) Miscellaneous Test 04/13/17 04/13/17 04/13/17 04:45 04:52 12:17 WBC RBC Hgb Hct MCV MCH RDW Plt Count Lymph % (Auto) [place] % (Auto) Eos % (Auto) Baso % (Auto) Lymph # Baso # Seg Neutrophils % Lymphocytes % (Manual) Monocytes % (Manual) Nucleated RBC % Seg Neutrophils # Seg Neutrophils # Man Monocytes # (Manual) PT INR Activated Clotting Time POC ABG pH POC ABG pCO2 POC ABG pO2 Sodium 148 H Potassium Chloride 112.8 H Carbon Dioxide BUN 33 H Creatinine 0.4 L Glucose 121 H POC Glucose 126 H 149 H Calcium Magnesium Direct Bilirubin AST 160 H ALT 189 H Alkaline Phosphatase 166 H Total Creatine Kinase CK-MB (CK-2) CK-MB (CK-2) Rel Index Troponin T C-Reactive Protein Total Protein Albumin 2.6 L Triglycerides Ur Specific [place] Urine WBC (Auto) Miscellaneous Test 04/13/17 04/14/17 04/14/17 17:45 00:20 00:45 WBC RBC Hgb Hct MCV MCH RDW Plt Count Lymph % (Auto) [place] % (Auto) Eos % (Auto) Baso % (Auto) Lymph # Baso # Seg Neutrophils % Lymphocytes % (Manual) Monocytes % (Manual) Nucleated RBC % Seg Neutrophils # Seg Neutrophils # Man Monocytes # (Manual) PT INR Activated Clotting Time POC ABG pH POC ABG pCO2 POC ABG pO2 Sodium Potassium Chloride Carbon Dioxide BUN Creatinine Glucose POC Glucose 130 H 144 H 144 H Calcium Magnesium Direct Bilirubin AST ALT Alkaline Phosphatase Total Creatine Kinase CK-MB (CK-2) CK-MB (CK-2) Rel Index Troponin T C-Reactive Protein Total Protein Albumin Triglycerides Ur Specific [place] Urine WBC (Auto) Miscellaneous Test 04/14/17 04/14/17 04/14/17 05:40 11:06 11:31 WBC RBC Hgb Hct MCV MCH RDW Plt Count Lymph % (Auto) [place] % (Auto) Eos % (Auto) Baso % (Auto) Lymph # Baso # Seg Neutrophils % Lymphocytes % (Manual) Monocytes % (Manual) Nucleated RBC % Seg Neutrophils # Seg Neutrophils # Man Monocytes # (Manual) PT INR Activated Clotting Time POC ABG pH POC ABG pCO2 POC ABG pO2 Sodium Potassium Chloride Carbon Dioxide BUN Creatinine Glucose POC Glucose 139 H 123 H Calcium Magnesium Direct Bilirubin AST ALT Alkaline Phosphatase Total Creatine Kinase CK-MB (CK-2) CK-MB (CK-2) Rel Index Troponin T C-Reactive Protein Total Protein Albumin Triglycerides Ur Specific [place] 1.033 H Urine WBC (Auto) > 182.0 H Miscellaneous Test 04/14/17 04/14/17 04/15/17 18:00 23:52 05:15 WBC 12.5 H RBC 3.38 L Hgb 10.6 L Hct 32.7 L MCV 97 H MCH RDW Plt Count 107 L Lymph % (Auto) 8.7 L [place] % (Auto) Eos % (Auto) Baso % (Auto) Lymph # 1.1 L Baso # Seg Neutrophils % 86.1 H Lymphocytes % (Manual) Monocytes % (Manual) Nucleated RBC % Seg Neutrophils # 10.7 H Seg Neutrophils # Man Monocytes # (Manual) PT INR Activated Clotting Time POC ABG pH POC ABG pCO2 POC ABG pO2 Sodium Potassium Chloride Carbon Dioxide BUN Creatinine Glucose POC Glucose 133 H 133 H Calcium Magnesium Direct Bilirubin AST ALT Alkaline Phosphatase Total Creatine Kinase CK-MB (CK-2) CK-MB (CK-2) Rel Index Troponin T C-Reactive Protein Total Protein Albumin Triglycerides Ur Specific [place] Urine WBC (Auto) Miscellaneous Test 04/15/17 04/15/17 04/15/17 05:15 05:25 11:50 WBC RBC Hgb Hct MCV MCH RDW Plt Count Lymph % (Auto) [place] % (Auto) Eos % (Auto) Baso % (Auto) Lymph # Baso # Seg Neutrophils % Lymphocytes % (Manual) Monocytes % (Manual) Nucleated RBC % Seg Neutrophils # Seg Neutrophils # Man Monocytes # (Manual) PT INR Activated Clotting Time POC ABG pH POC ABG pCO2 POC ABG pO2 Sodium 149 H Potassium 3.5 L Chloride 114.1 H Carbon Dioxide 21 L BUN 29 H Creatinine 0.4 L Glucose 128 H POC Glucose 133 H 107 H Calcium 8.3 L Magnesium Direct Bilirubin 0.4 H AST 149 H ALT 182 H Alkaline Phosphatase 143 H Total Creatine Kinase CK-MB (CK-2) CK-MB (CK-2) Rel Index Troponin T C-Reactive Protein Total Protein Albumin 2.5 L Triglycerides Ur Specific [place] Urine WBC (Auto) Miscellaneous Test 04/15/17 04/16/17 04/16/17 16:55 00:02 03:17 WBC RBC 3.39 L Hgb 10.5 L Hct 32.4 L MCV 96 H MCH RDW Plt Count 106 L Lymph % (Auto) 6.7 L [place] % (Auto) Eos % (Auto) Baso % (Auto) Lymph # 0.6 L Baso # Seg Neutrophils % 86.8 H Lymphocytes % (Manual) Monocytes % (Manual) Nucleated RBC % Seg Neutrophils # 8.2 H Seg Neutrophils # Man Monocytes # (Manual) PT INR Activated Clotting Time POC ABG pH POC ABG pCO2 POC ABG pO2 Sodium Potassium Chloride Carbon Dioxide BUN Creatinine Glucose POC Glucose 146 H 148 H Calcium Magnesium Direct Bilirubin AST ALT Alkaline Phosphatase Total Creatine Kinase CK-MB (CK-2) CK-MB (CK-2) Rel Index Troponin T C-Reactive Protein Total Protein Albumin Triglycerides Ur Specific [place] Urine WBC (Auto) Miscellaneous Test 04/16/17 04/16/17 04/16/17 03:17 05:19 11:13 WBC RBC Hgb Hct MCV MCH RDW Plt Count Lymph % (Auto) [place] % (Auto) Eos % (Auto) Baso % (Auto) Lymph # Baso # Seg Neutrophils % Lymphocytes % (Manual) Monocytes % (Manual) Nucleated RBC % Seg Neutrophils # Seg Neutrophils # Man Monocytes # (Manual) PT INR Activated Clotting Time POC ABG pH POC ABG pCO2 POC ABG pO2 Sodium 149 H Potassium Chloride 111.1 H Carbon Dioxide 20 L BUN 27 H Creatinine 0.3 L Glucose 156 H POC Glucose 171 H 169 H Calcium 8.3 L Magnesium Direct Bilirubin AST ALT Alkaline Phosphatase Total Creatine Kinase CK-MB (CK-2) CK-MB (CK-2) Rel Index Troponin T C-Reactive Protein Total Protein Albumin Triglycerides Ur Specific [place] Urine WBC (Auto) Miscellaneous Test 04/16/17 04/17/17 04/17/17 17:03 00:00 05:09 WBC RBC Hgb Hct MCV MCH RDW Plt Count Lymph % (Auto) [place] % (Auto) Eos % (Auto) Baso % (Auto) Lymph # Baso # Seg Neutrophils % Lymphocytes % (Manual) Monocytes % (Manual) Nucleated RBC % Seg Neutrophils # Seg Neutrophils # Man Monocytes # (Manual) PT INR Activated Clotting Time POC ABG pH POC ABG pCO2 POC ABG pO2 Sodium Potassium Chloride Carbon Dioxide BUN Creatinine Glucose POC Glucose 151 H 165 H 145 H Calcium Magnesium Direct Bilirubin AST ALT Alkaline Phosphatase Total Creatine Kinase CK-MB (CK-2) CK-MB (CK-2) Rel Index Troponin T C-Reactive Protein Total Protein Albumin Triglycerides Ur Specific [place] Urine WBC (Auto) Miscellaneous Test 04/17/17 04/17/17 04/18/17 11:38 17:47 00:01 WBC RBC Hgb Hct MCV MCH RDW Plt Count Lymph % (Auto) [place] % (Auto) Eos % (Auto) Baso % (Auto) Lymph # Baso # Seg Neutrophils % Lymphocytes % (Manual) Monocytes % (Manual) Nucleated RBC % Seg Neutrophils # Seg Neutrophils # Man Monocytes # (Manual) PT INR Activated Clotting Time POC ABG pH POC ABG pCO2 POC ABG pO2 Sodium Potassium Chloride Carbon Dioxide BUN Creatinine Glucose POC Glucose 170 H 161 H 131 H Calcium Magnesium Direct Bilirubin AST ALT Alkaline Phosphatase Total Creatine Kinase CK-MB (CK-2) CK-MB (CK-2) Rel Index Troponin T C-Reactive Protein Total Protein Albumin Triglycerides Ur Specific [place] Urine WBC (Auto) Miscellaneous Test 04/18/17 04/18/17 04/18/17 03:55 03:55 05:30 WBC RBC 3.05 L Hgb 9.8 L Hct 29.0 L MCV 95 H MCH RDW Plt Count 113 L Lymph % (Auto) [place] % (Auto) Eos % (Auto) 5.3 H Baso % (Auto) Lymph # Baso # Seg Neutrophils % 71.5 H Lymphocytes % (Manual) Monocytes % (Manual) Nucleated RBC % Seg Neutrophils # Seg Neutrophils # Man Monocytes # (Manual) PT INR Activated Clotting Time POC ABG pH 7.460 H POC ABG pCO2 30.8 L POC ABG pO2 129 H Sodium Potassium Chloride Carbon Dioxide 21 L BUN 25 H Creatinine 0.4 L Glucose 123 H POC Glucose Calcium 8.3 L Magnesium Direct Bilirubin AST ALT Alkaline Phosphatase Total Creatine Kinase CK-MB (CK-2) CK-MB (CK-2) Rel Index Troponin T C-Reactive Protein Total Protein Albumin Triglycerides Ur Specific [place] Urine WBC (Auto) Miscellaneous Test 04/18/17 04/18/17 04/19/17 17:10 23:40 04:36 WBC RBC 3.21 L Hgb 10.2 L Hct 30.4 L MCV 95 H MCH RDW Plt Count 131 L Lymph % (Auto) 12.1 L [place] % (Auto) Eos % (Auto) 4.7 H Baso % (Auto) 2.4 H Lymph # 0.9 L Baso # 0.2 H Seg Neutrophils % 75.0 H Lymphocytes % (Manual) Monocytes % (Manual) Nucleated RBC % Seg Neutrophils # Seg Neutrophils # Man Monocytes # (Manual) PT INR Activated Clotting Time POC ABG pH POC ABG pCO2 POC ABG pO2 Sodium Potassium Chloride Carbon Dioxide BUN Creatinine Glucose POC Glucose 135 H 157 H Calcium Magnesium Direct Bilirubin AST ALT Alkaline Phosphatase Total Creatine Kinase CK-MB (CK-2) CK-MB (CK-2) Rel Index Troponin T C-Reactive Protein Total Protein Albumin Triglycerides Ur Specific [place] Urine WBC (Auto) Miscellaneous Test 04/19/17 04/19/17 04/19/17 04:36 05:12 06:50 WBC RBC Hgb Hct MCV MCH RDW Plt Count Lymph % (Auto) [place] % (Auto) Eos % (Auto) Baso % (Auto) Lymph # Baso # Seg Neutrophils % Lymphocytes % (Manual) Monocytes % (Manual) Nucleated RBC % Seg Neutrophils # Seg Neutrophils # Man Monocytes # (Manual) PT INR Activated Clotting Time POC ABG pH 7.516 H POC ABG pCO2 28.0 L POC ABG pO2 Sodium Potassium Chloride Carbon Dioxide 21 L BUN 23 H Creatinine 0.2 L Glucose 137 H POC Glucose 131 H Calcium 7.9 L Magnesium Direct Bilirubin AST ALT Alkaline Phosphatase Total Creatine Kinase CK-MB (CK-2) CK-MB (CK-2) Rel Index Troponin T C-Reactive Protein Total Protein Albumin Triglycerides Ur Specific [place] Urine WBC (Auto) Miscellaneous Test 04/19/17 04/19/17 04/20/17 12:36 17:42 00:12 WBC RBC Hgb Hct MCV MCH RDW Plt Count Lymph % (Auto) [place] % (Auto) Eos % (Auto) Baso % (Auto) Lymph # Baso # Seg Neutrophils % Lymphocytes % (Manual) Monocytes % (Manual) Nucleated RBC % Seg Neutrophils # Seg Neutrophils # Man Monocytes # (Manual) PT INR Activated Clotting Time POC ABG pH POC ABG pCO2 POC ABG pO2 Sodium Potassium Chloride Carbon Dioxide BUN Creatinine Glucose POC Glucose 128 H 140 H 132 H Calcium Magnesium Direct Bilirubin AST ALT Alkaline Phosphatase Total Creatine Kinase CK-MB (CK-2) CK-MB (CK-2) Rel Index Troponin T C-Reactive Protein Total Protein Albumin Triglycerides Ur Specific [place] Urine WBC (Auto) Miscellaneous Test 04/20/17 04/20/17 04/20/17 03:35 03:35 05:10 WBC RBC 3.34 L Hgb 10.4 L Hct 31.6 L MCV 95 H MCH RDW Plt Count Lymph % (Auto) 12.9 L [place] % (Auto) Eos % (Auto) Baso % (Auto) Lymph # Baso # Seg Neutrophils % 77.3 H Lymphocytes % (Manual) Monocytes % (Manual) Nucleated RBC % Seg Neutrophils # Seg Neutrophils # Man Monocytes # (Manual) PT INR Activated Clotting Time POC ABG pH POC ABG pCO2 POC ABG pO2 Sodium Potassium Chloride Carbon Dioxide BUN Creatinine 0.3 L Glucose 155 H POC Glucose 135 H Calcium 7.8 L Magnesium Direct Bilirubin AST ALT Alkaline Phosphatase Total Creatine Kinase CK-MB (CK-2) CK-MB (CK-2) Rel Index Troponin T C-Reactive Protein Total Protein Albumin Triglycerides Ur Specific [place] Urine WBC (Auto) Miscellaneous Test 04/20/17 04/20/17 04/21/17 12:49 18:21 00:05 WBC RBC Hgb Hct MCV MCH RDW Plt Count Lymph % (Auto) [place] % (Auto) Eos % (Auto) Baso % (Auto) Lymph # Baso # Seg Neutrophils % Lymphocytes % (Manual) Monocytes % (Manual) Nucleated RBC % Seg Neutrophils # Seg Neutrophils # Man Monocytes # (Manual) PT INR Activated Clotting Time POC ABG pH POC ABG pCO2 POC ABG pO2 Sodium Potassium Chloride Carbon Dioxide BUN Creatinine Glucose POC Glucose 155 H 165 H 141 H Calcium Magnesium Direct Bilirubin AST ALT Alkaline Phosphatase Total Creatine Kinase CK-MB (CK-2) CK-MB (CK-2) Rel Index Troponin T C-Reactive Protein Total Protein Albumin Triglycerides Ur Specific [place] Urine WBC (Auto) Miscellaneous Test 04/21/17 04/21/17 04/21/17 06:00 12:11 17:04 WBC RBC Hgb Hct MCV MCH RDW Plt Count Lymph % (Auto) [place] % (Auto) Eos % (Auto) Baso % (Auto) Lymph # Baso # Seg Neutrophils % Lymphocytes % (Manual) Monocytes % (Manual) Nucleated RBC % Seg Neutrophils # Seg Neutrophils # Man Monocytes # (Manual) PT INR Activated Clotting Time POC ABG pH POC ABG pCO2 POC ABG pO2 Sodium Potassium Chloride Carbon Dioxide BUN Creatinine Glucose POC Glucose 152 H 165 H 156 H Calcium Magnesium Direct Bilirubin AST ALT Alkaline Phosphatase Total Creatine Kinase CK-MB (CK-2) CK-MB (CK-2) Rel Index Troponin T C-Reactive Protein Total Protein Albumin Triglycerides Ur Specific [place] Urine WBC (Auto) Miscellaneous Test 04/21/17 04/21/17 04/22/17 22:00 23:59 05:49 WBC RBC Hgb Hct MCV MCH RDW Plt Count Lymph % (Auto) [place] % (Auto) Eos % (Auto) Baso % (Auto) Lymph # Baso # Seg Neutrophils % Lymphocytes % (Manual) Monocytes % (Manual) Nucleated RBC % Seg Neutrophils # Seg Neutrophils # Man Monocytes # (Manual) PT INR Activated Clotting Time POC ABG pH POC ABG pCO2 POC ABG pO2 Sodium Potassium Chloride Carbon Dioxide BUN Creatinine Glucose POC Glucose 166 H 173 H Calcium Magnesium Direct Bilirubin AST ALT Alkaline Phosphatase Total Creatine Kinase CK-MB (CK-2) CK-MB (CK-2) Rel Index Troponin T C-Reactive Protein Total Protein Albumin Triglycerides Ur Specific [place] Urine WBC (Auto) 10.0 H Miscellaneous Test 04/22/17 04/22/17 04/23/17 11:11 18:04 00:37 WBC RBC Hgb Hct MCV MCH RDW Plt Count Lymph % (Auto) [place] % (Auto) Eos % (Auto) Baso % (Auto) Lymph # Baso # Seg Neutrophils % Lymphocytes % (Manual) Monocytes % (Manual) Nucleated RBC % Seg Neutrophils # Seg Neutrophils # Man Monocytes # (Manual) PT INR Activated Clotting Time POC ABG pH POC ABG pCO2 POC ABG pO2 Sodium Potassium Chloride Carbon Dioxide BUN Creatinine Glucose POC Glucose 172 H 140 H 135 H Calcium Magnesium Direct Bilirubin AST ALT Alkaline Phosphatase Total Creatine Kinase CK-MB (CK-2) CK-MB (CK-2) Rel Index Troponin T C-Reactive Protein Total Protein Albumin Triglycerides Ur Specific [place] Urine WBC (Auto) Miscellaneous Test 04/23/17 04/23/17 04/23/17 05:33 06:20 11:10 WBC RBC 3.19 L Hgb 9.9 L Hct 30.0 L MCV MCH RDW Plt Count Lymph % (Auto) 8.0 L [place] % (Auto) Eos % (Auto) Baso % (Auto) Lymph # 0.8 L Baso # Seg Neutrophils % 84.5 H Lymphocytes % (Manual) Monocytes % (Manual) Nucleated RBC % Seg Neutrophils # 8.2 H Seg Neutrophils # Man Monocytes # (Manual) PT INR Activated Clotting Time POC ABG pH POC ABG pCO2 POC ABG pO2 Sodium Potassium Chloride Carbon Dioxide BUN Creatinine Glucose POC Glucose 134 H 134 H Calcium Magnesium Direct Bilirubin AST ALT Alkaline Phosphatase Total Creatine Kinase CK-MB (CK-2) CK-MB (CK-2) Rel Index Troponin T C-Reactive Protein Total Protein Albumin Triglycerides Ur Specific [place] Urine WBC (Auto) Miscellaneous Test 04/23/17 04/24/17 04/24/17 17:26 00:53 06:46 WBC RBC Hgb Hct MCV MCH RDW Plt Count Lymph % (Auto) [place] % (Auto) Eos % (Auto) Baso % (Auto) Lymph # Baso # Seg Neutrophils % Lymphocytes % (Manual) Monocytes % (Manual) Nucleated RBC % Seg Neutrophils # Seg Neutrophils # Man Monocytes # (Manual) PT INR Activated Clotting Time POC ABG pH POC ABG pCO2 POC ABG pO2 Sodium Potassium Chloride Carbon Dioxide BUN Creatinine Glucose POC Glucose 164 H 146 H 125 H Calcium Magnesium Direct Bilirubin AST ALT Alkaline Phosphatase Total Creatine Kinase CK-MB (CK-2) CK-MB (CK-2) Rel Index Troponin T C-Reactive Protein Total Protein Albumin Triglycerides Ur Specific [place] Urine WBC (Auto) Miscellaneous Test 04/24/17 04/24/17 04/24/17 11:55 17:50 23:36 WBC RBC Hgb Hct MCV MCH RDW Plt Count Lymph % (Auto) [place] % (Auto) Eos % (Auto) Baso % (Auto) Lymph # Baso # Seg Neutrophils % Lymphocytes % (Manual) Monocytes % (Manual) Nucleated RBC % Seg Neutrophils # Seg Neutrophils # Man Monocytes # (Manual) PT INR Activated Clotting Time POC ABG pH POC ABG pCO2 POC ABG pO2 Sodium Potassium Chloride Carbon Dioxide BUN Creatinine Glucose POC Glucose 156 H 146 H 131 H Calcium Magnesium Direct Bilirubin AST ALT Alkaline Phosphatase Total Creatine Kinase CK-MB (CK-2) CK-MB (CK-2) Rel Index Troponin T C-Reactive Protein Total Protein Albumin Triglycerides Ur Specific [place] Urine WBC (Auto) Miscellaneous Test 04/25/17 04/25/17 04/25/17 04:51 05:16 07:07 WBC RBC Hgb Hct MCV MCH RDW Plt Count Lymph % (Auto) [place] % (Auto) Eos % (Auto) Baso % (Auto) Lymph # Baso # Seg Neutrophils % Lymphocytes % (Manual) Monocytes % (Manual) Nucleated RBC % Seg Neutrophils # Seg Neutrophils # Man Monocytes # (Manual) PT INR Activated Clotting Time POC ABG pH POC ABG pCO2 POC ABG pO2 Sodium Potassium Chloride Carbon Dioxide BUN Creatinine Glucose POC Glucose 139 H Calcium Magnesium Direct Bilirubin AST 105 H ALT 204 H Alkaline Phosphatase 189 H Total Creatine Kinase CK-MB (CK-2) CK-MB (CK-2) Rel Index Troponin T C-Reactive Protein Total Protein Albumin 2.4 L Triglycerides Ur Specific [place] Urine WBC (Auto) Miscellaneous Test Flexitest 1 H 04/25/17 04/25/17 04/25/17 12:29 17:23 23:32 WBC RBC Hgb Hct MCV MCH RDW Plt Count Lymph % (Auto) [place] % (Auto) Eos % (Auto) Baso % (Auto) Lymph # Baso # Seg Neutrophils % Lymphocytes % (Manual) Monocytes % (Manual) Nucleated RBC % Seg Neutrophils # Seg Neutrophils # Man Monocytes # (Manual) PT INR Activated Clotting Time POC ABG pH POC ABG pCO2 POC ABG pO2 Sodium Potassium Chloride Carbon Dioxide BUN Creatinine Glucose POC Glucose 132 H 133 H 128 H Calcium Magnesium Direct Bilirubin AST ALT Alkaline Phosphatase Total Creatine Kinase CK-MB (CK-2) CK-MB (CK-2) Rel Index Troponin T C-Reactive Protein Total Protein Albumin Triglycerides Ur Specific [place] Urine WBC (Auto) Miscellaneous Test 04/26/17 04/26/17 04/26/17 05:24 11:28 17:09 WBC RBC Hgb Hct MCV MCH RDW Plt Count Lymph % (Auto) [place] % (Auto) Eos % (Auto) Baso % (Auto) Lymph # Baso # Seg Neutrophils % Lymphocytes % (Manual) Monocytes % (Manual) Nucleated RBC % Seg Neutrophils # Seg Neutrophils # Man Monocytes # (Manual) PT INR Activated Clotting Time POC ABG pH POC ABG pCO2 POC ABG pO2 Sodium Potassium Chloride Carbon Dioxide BUN Creatinine Glucose POC Glucose 132 H 146 H 141 H Calcium Magnesium Direct Bilirubin AST ALT Alkaline Phosphatase Total Creatine Kinase CK-MB (CK-2) CK-MB (CK-2) Rel Index Troponin T C-Reactive Protein Total Protein Albumin Triglycerides Ur Specific [place] Urine WBC (Auto) Miscellaneous Test 04/26/17 04/27/17 04/27/17 23:52 05:40 05:40 WBC RBC 3.22 L Hgb 10.0 L Hct 29.9 L MCV MCH RDW Plt Count Lymph % (Auto) [place] % (Auto) Eos % (Auto) Baso % (Auto) Lymph # Baso # Seg Neutrophils % 76.6 H Lymphocytes % (Manual) Monocytes % (Manual) Nucleated RBC % Seg Neutrophils # Seg Neutrophils # Man Monocytes # (Manual) PT INR Activated Clotting Time POC ABG pH POC ABG pCO2 POC ABG pO2 Sodium Potassium Chloride Carbon Dioxide BUN Creatinine Glucose POC Glucose 140 H Calcium Magnesium Direct Bilirubin AST 66 H ALT 137 H Alkaline Phosphatase 169 H Total Creatine Kinase CK-MB (CK-2) CK-MB (CK-2) Rel Index Troponin T C-Reactive Protein Total Protein 6.2 L Albumin 2.6 L Triglycerides Ur Specific [place] Urine WBC (Auto) Miscellaneous Test 04/27/17 04/27/17 04/27/17 05:40 06:10 11:13 WBC RBC Hgb Hct MCV MCH RDW Plt Count Lymph % (Auto) [place] % (Auto) Eos % (Auto) Baso % (Auto) Lymph # Baso # Seg Neutrophils % Lymphocytes % (Manual) Monocytes % (Manual) Nucleated RBC % Seg Neutrophils # Seg Neutrophils # Man Monocytes # (Manual) PT INR Activated Clotting Time POC ABG pH POC ABG pCO2 POC ABG pO2 Sodium Potassium Chloride Carbon Dioxide BUN Creatinine 0.2 L Glucose 139 H POC Glucose 130 H 151 H Calcium Magnesium Direct Bilirubin AST ALT Alkaline Phosphatase Total Creatine Kinase CK-MB (CK-2) CK-MB (CK-2) Rel Index Troponin T C-Reactive Protein Total Protein Albumin Triglycerides Ur Specific [place] Urine WBC (Auto) Miscellaneous Test 04/27/17 04/27/17 04/28/17 17:37 23:19 05:24 WBC RBC Hgb Hct MCV MCH RDW Plt Count Lymph % (Auto) [place] % (Auto) Eos % (Auto) Baso % (Auto) Lymph # Baso # Seg Neutrophils % Lymphocytes % (Manual) Monocytes % (Manual) Nucleated RBC % Seg Neutrophils # Seg Neutrophils # Man Monocytes # (Manual) PT INR Activated Clotting Time POC ABG pH POC ABG pCO2 POC ABG pO2 Sodium Potassium Chloride Carbon Dioxide BUN Creatinine Glucose POC Glucose 159 H 130 H 132 H Calcium Magnesium Direct Bilirubin AST ALT Alkaline Phosphatase Total Creatine Kinase CK-MB (CK-2) CK-MB (CK-2) Rel Index Troponin T C-Reactive Protein Total Protein Albumin Triglycerides Ur Specific [place] Urine WBC (Auto) Miscellaneous Test 04/28/17 04/28/17 04/28/17 11:15 17:38 23:23 WBC RBC Hgb Hct MCV MCH RDW Plt Count Lymph % (Auto) [place] % (Auto) Eos % (Auto) Baso % (Auto) Lymph # Baso # Seg Neutrophils % Lymphocytes % (Manual) Monocytes % (Manual) Nucleated RBC % Seg Neutrophils # Seg Neutrophils # Man Monocytes # (Manual) PT INR Activated Clotting Time POC ABG pH POC ABG pCO2 POC ABG pO2 Sodium Potassium Chloride Carbon Dioxide BUN Creatinine Glucose POC Glucose 162 H 133 H 138 H Calcium Magnesium Direct Bilirubin AST ALT Alkaline Phosphatase Total Creatine Kinase CK-MB (CK-2) CK-MB (CK-2) Rel Index Troponin T C-Reactive Protein Total Protein Albumin Triglycerides Ur Specific [place] Urine WBC (Auto) Miscellaneous Test 04/29/17 04/29/17 04/29/17 05:15 12:55 17:21 WBC RBC Hgb Hct MCV MCH RDW Plt Count Lymph % (Auto) [place] % (Auto) Eos % (Auto) Baso % (Auto) Lymph # Baso # Seg Neutrophils % Lymphocytes % (Manual) Monocytes % (Manual) Nucleated RBC % Seg Neutrophils # Seg Neutrophils # Man Monocytes # (Manual) PT INR Activated Clotting Time POC ABG pH POC ABG pCO2 POC ABG pO2 Sodium Potassium Chloride Carbon Dioxide BUN Creatinine Glucose POC Glucose 135 H 127 H 138 H Calcium Magnesium Direct Bilirubin AST ALT Alkaline Phosphatase Total Creatine Kinase CK-MB (CK-2) CK-MB (CK-2) Rel Index Troponin T C-Reactive Protein Total Protein Albumin Triglycerides Ur Specific [place] Urine WBC (Auto) Miscellaneous Test 04/29/17 04/30/17 04/30/17 23:52 04:55 12:22 WBC RBC Hgb Hct MCV MCH RDW Plt Count Lymph % (Auto) [place] % (Auto) Eos % (Auto) Baso % (Auto) Lymph # Baso # Seg Neutrophils % Lymphocytes % (Manual) Monocytes % (Manual) Nucleated RBC % Seg Neutrophils # Seg Neutrophils # Man Monocytes # (Manual) PT INR Activated Clotting Time POC ABG pH POC ABG pCO2 POC ABG pO2 Sodium Potassium Chloride Carbon Dioxide BUN Creatinine Glucose POC Glucose 142 H 146 H 132 H Calcium Magnesium Direct Bilirubin AST ALT Alkaline Phosphatase Total Creatine Kinase CK-MB (CK-2) CK-MB (CK-2) Rel Index Troponin T C-Reactive Protein Total Protein Albumin Triglycerides Ur Specific [place] Urine WBC (Auto) Miscellaneous Test 04/30/17 04/30/17 04/30/17 14:25 17:47 18:20 WBC RBC Hgb Hct MCV MCH RDW Plt Count Lymph % (Auto) [place] % (Auto) Eos % (Auto) Baso % (Auto) Lymph # Baso # Seg Neutrophils % Lymphocytes % (Manual) Monocytes % (Manual) Nucleated RBC % Seg Neutrophils # Seg Neutrophils # Man Monocytes # (Manual) PT INR Activated Clotting Time POC ABG pH 7.551 H POC ABG pCO2 32.7 L POC ABG pO2 Sodium Potassium Chloride Carbon Dioxide BUN 21 H Creatinine 0.2 L Glucose 141 H POC Glucose 139 H Calcium Magnesium Direct Bilirubin AST ALT Alkaline Phosphatase Total Creatine Kinase CK-MB (CK-2) CK-MB (CK-2) Rel Index Troponin T C-Reactive Protein Total Protein Albumin Triglycerides Ur Specific [place] Urine WBC (Auto) Miscellaneous Test 05/01/17 05/01/17 05/01/17 01:26 05:30 05:30 WBC RBC 3.49 L Hgb 10.3 L Hct 31.9 L MCV MCH RDW Plt Count Lymph % (Auto) [place] % (Auto) 8.1 H Eos % (Auto) Baso % (Auto) Lymph # Baso # Seg Neutrophils % 71.3 H Lymphocytes % (Manual) Monocytes % (Manual) Nucleated RBC % Seg Neutrophils # Seg Neutrophils # Man Monocytes # (Manual) PT INR Activated Clotting Time POC ABG pH POC ABG pCO2 POC ABG pO2 Sodium 136 L Potassium Chloride 97.6 L Carbon Dioxide BUN Creatinine 0.2 L Glucose 123 H POC Glucose 116 H Calcium Magnesium Direct Bilirubin AST 71 H ALT 125 H Alkaline Phosphatase 158 H Total Creatine Kinase CK-MB (CK-2) CK-MB (CK-2) Rel Index Troponin T C-Reactive Protein Total Protein Albumin 2.6 L Triglycerides Ur Specific [place] Urine WBC (Auto) Miscellaneous Test 05/01/17 05/01/17 05/02/17 11:59 17:23 00:08 WBC RBC Hgb Hct MCV MCH RDW Plt Count Lymph % (Auto) [place] % (Auto) Eos % (Auto) Baso % (Auto) Lymph # Baso # Seg Neutrophils % Lymphocytes % (Manual) Monocytes % (Manual) Nucleated RBC % Seg Neutrophils # Seg Neutrophils # Man Monocytes # (Manual) PT INR Activated Clotting Time POC ABG pH POC ABG pCO2 POC ABG pO2 Sodium Potassium Chloride Carbon Dioxide BUN Creatinine Glucose POC Glucose 118 H 144 H 122 H Calcium Magnesium Direct Bilirubin AST ALT Alkaline Phosphatase Total Creatine Kinase CK-MB (CK-2) CK-MB (CK-2) Rel Index Troponin T C-Reactive Protein Total Protein Albumin Triglycerides Ur Specific [place] Urine WBC (Auto) Miscellaneous Test 05/02/17 05/02/17 05/02/17 05:50 11:21 17:48 WBC RBC Hgb Hct MCV MCH RDW Plt Count Lymph % (Auto) [place] % (Auto) Eos % (Auto) Baso % (Auto) Lymph # Baso # Seg Neutrophils % Lymphocytes % (Manual) Monocytes % (Manual) Nucleated RBC % Seg Neutrophils # Seg Neutrophils # Man Monocytes # (Manual) PT INR Activated Clotting Time POC ABG pH POC ABG pCO2 POC ABG pO2 Sodium Potassium Chloride Carbon Dioxide BUN Creatinine Glucose POC Glucose 120 H 121 H 140 H Calcium Magnesium Direct Bilirubin AST ALT Alkaline Phosphatase Total Creatine Kinase CK-MB (CK-2) CK-MB (CK-2) Rel Index Troponin T C-Reactive Protein Total Protein Albumin Triglycerides Ur Specific [place] Urine WBC (Auto) Miscellaneous Test 05/02/17 05/03/17 05/03/17 23:12 05:35 11:52 WBC RBC Hgb Hct MCV MCH RDW Plt Count Lymph % (Auto) [place] % (Auto) Eos % (Auto) Baso % (Auto) Lymph # Baso # Seg Neutrophils % Lymphocytes % (Manual) Monocytes % (Manual) Nucleated RBC % Seg Neutrophils # Seg Neutrophils # Man Monocytes # (Manual) PT INR Activated Clotting Time POC ABG pH POC ABG pCO2 POC ABG pO2 Sodium Potassium Chloride Carbon Dioxide BUN Creatinine Glucose POC Glucose 128 H 113 H 126 H Calcium Magnesium Direct Bilirubin AST ALT Alkaline Phosphatase Total Creatine Kinase CK-MB (CK-2) CK-MB (CK-2) Rel Index Troponin T C-Reactive Protein Total Protein Albumin Triglycerides Ur Specific [place] Urine WBC (Auto) Miscellaneous Test 05/03/17 05/03/17 05/04/17 17:29 23:26 04:55 WBC RBC Hgb Hct MCV MCH RDW Plt Count Lymph % (Auto) [place] % (Auto) Eos % (Auto) Baso % (Auto) Lymph # Baso # Seg Neutrophils % Lymphocytes % (Manual) Monocytes % (Manual) Nucleated RBC % Seg Neutrophils # Seg Neutrophils # Man Monocytes # (Manual) PT INR Activated Clotting Time POC ABG pH POC ABG pCO2 POC ABG pO2 Sodium Potassium Chloride Carbon Dioxide BUN Creatinine Glucose POC Glucose 141 H 129 H 126 H Calcium Magnesium Direct Bilirubin AST ALT Alkaline Phosphatase Total Creatine Kinase CK-MB (CK-2) CK-MB (CK-2) Rel Index Troponin T C-Reactive Protein Total Protein Albumin Triglycerides Ur Specific [place] Urine WBC (Auto) Miscellaneous Test 05/04/17 05/04/17 05/05/17 12:09 17:46 00:06 WBC RBC Hgb Hct MCV MCH RDW Plt Count Lymph % (Auto) [place] % (Auto) Eos % (Auto) Baso % (Auto) Lymph # Baso # Seg Neutrophils % Lymphocytes % (Manual) Monocytes % (Manual) Nucleated RBC % Seg Neutrophils # Seg Neutrophils # Man Monocytes # (Manual) PT INR Activated Clotting Time POC ABG pH POC ABG pCO2 POC ABG pO2 Sodium Potassium Chloride Carbon Dioxide BUN Creatinine Glucose POC Glucose 125 H 125 H 110 H Calcium Magnesium Direct Bilirubin AST ALT Alkaline Phosphatase Total Creatine Kinase CK-MB (CK-2) CK-MB (CK-2) Rel Index Troponin T C-Reactive Protein Total Protein Albumin Triglycerides Ur Specific [place] Urine WBC (Auto) Miscellaneous Test 05/05/17 05/05/17 05/05/17 05:48 11:41 16:19 WBC RBC Hgb Hct MCV MCH RDW Plt Count Lymph % (Auto) [place] % (Auto) Eos % (Auto) Baso % (Auto) Lymph # Baso # Seg Neutrophils % Lymphocytes % (Manual) Monocytes % (Manual) Nucleated RBC % Seg Neutrophils # Seg Neutrophils # Man Monocytes # (Manual) PT INR Activated Clotting Time POC ABG pH POC ABG pCO2 POC ABG pO2 Sodium Potassium Chloride Carbon Dioxide BUN Creatinine Glucose POC Glucose 124 H 122 H 120 H Calcium Magnesium Direct Bilirubin AST ALT Alkaline Phosphatase Total Creatine Kinase CK-MB (CK-2) CK-MB (CK-2) Rel Index Troponin T C-Reactive Protein Total Protein Albumin Triglycerides Ur Specific [place] Urine WBC (Auto) Miscellaneous Test 05/06/17 05/06/17 05/06/17 00:16 05:47 11:42 WBC RBC Hgb Hct MCV MCH RDW Plt Count Lymph % (Auto) [place] % (Auto) Eos % (Auto) Baso % (Auto) Lymph # Baso # Seg Neutrophils % Lymphocytes % (Manual) Monocytes % (Manual) Nucleated RBC % Seg Neutrophils # Seg Neutrophils # Man Monocytes # (Manual) PT INR Activated Clotting Time POC ABG pH POC ABG pCO2 POC ABG pO2 Sodium Potassium Chloride Carbon Dioxide BUN Creatinine Glucose POC Glucose 110 H 142 H 120 H Calcium Magnesium Direct Bilirubin AST ALT Alkaline Phosphatase Total Creatine Kinase CK-MB (CK-2) CK-MB (CK-2) Rel Index Troponin T C-Reactive Protein Total Protein Albumin Triglycerides Ur Specific [place] Urine WBC (Auto) Miscellaneous Test 05/06/17 05/07/17 05/07/17 17:46 00:07 05:28 WBC RBC Hgb Hct MCV MCH RDW Plt Count Lymph % (Auto) [place] % (Auto) Eos % (Auto) Baso % (Auto) Lymph # Baso # Seg Neutrophils % Lymphocytes % (Manual) Monocytes % (Manual) Nucleated RBC % Seg Neutrophils # Seg Neutrophils # Man Monocytes # (Manual) PT INR Activated Clotting Time POC ABG pH POC ABG pCO2 POC ABG pO2 Sodium Potassium Chloride Carbon Dioxide BUN Creatinine Glucose POC Glucose 127 H 145 H 124 H Calcium Magnesium Direct Bilirubin AST ALT Alkaline Phosphatase Total Creatine Kinase CK-MB (CK-2) CK-MB (CK-2) Rel Index Troponin T C-Reactive Protein Total Protein Albumin Triglycerides Ur Specific [place] Urine WBC (Auto) Miscellaneous Test 05/07/17 05/07/17 05/08/17 11:17 17:14 00:03 WBC RBC Hgb Hct MCV MCH RDW Plt Count Lymph % (Auto) [place] % (Auto) Eos % (Auto) Baso % (Auto) Lymph # Baso # Seg Neutrophils % Lymphocytes % (Manual) Monocytes % (Manual) Nucleated RBC % Seg Neutrophils # Seg Neutrophils # Man Monocytes # (Manual) PT INR Activated Clotting Time POC ABG pH POC ABG pCO2 POC ABG pO2 Sodium Potassium Chloride Carbon Dioxide BUN Creatinine Glucose POC Glucose 144 H 125 H 122 H Calcium Magnesium Direct Bilirubin AST ALT Alkaline Phosphatase Total Creatine Kinase CK-MB (CK-2) CK-MB (CK-2) Rel Index Troponin T C-Reactive Protein Total Protein Albumin Triglycerides Ur Specific [place] Urine WBC (Auto) Miscellaneous Test 05/08/17 05/08/17 05/08/17 05:43 12:07 18:02 WBC RBC Hgb Hct MCV MCH RDW Plt Count Lymph % (Auto) [place] % (Auto) Eos % (Auto) Baso % (Auto) Lymph # Baso # Seg Neutrophils % Lymphocytes % (Manual) Monocytes % (Manual) Nucleated RBC % Seg Neutrophils # Seg Neutrophils # Man Monocytes # (Manual) PT INR Activated Clotting Time POC ABG pH POC ABG pCO2 POC ABG pO2 Sodium Potassium Chloride Carbon Dioxide BUN Creatinine Glucose POC Glucose 117 H 114 H 129 H Calcium Magnesium Direct Bilirubin AST ALT Alkaline Phosphatase Total Creatine Kinase CK-MB (CK-2) CK-MB (CK-2) Rel Index Troponin T C-Reactive Protein Total Protein Albumin Triglycerides Ur Specific [place] Urine WBC (Auto) Miscellaneous Test 05/08/17 05/09/17 05/09/17 23:53 04:19 05:14 WBC RBC Hgb Hct MCV MCH RDW Plt Count Lymph % (Auto) [place] % (Auto) Eos % (Auto) Baso % (Auto) Lymph # Baso # Seg Neutrophils % Lymphocytes % (Manual) Monocytes % (Manual) Nucleated RBC % Seg Neutrophils # Seg Neutrophils # Man Monocytes # (Manual) PT INR Activated Clotting Time POC ABG pH 7.524 H POC ABG pCO2 34.7 L POC ABG pO2 107 H Sodium Potassium Chloride Carbon Dioxide BUN Creatinine Glucose POC Glucose 125 H 118 H Calcium Magnesium Direct Bilirubin AST ALT Alkaline Phosphatase Total Creatine Kinase CK-MB (CK-2) CK-MB (CK-2) Rel Index Troponin T C-Reactive Protein Total Protein Albumin Triglycerides Ur Specific [place] Urine WBC (Auto) Miscellaneous Test 05/10/17 05/11/17 05/11/17 23:54 05:48 23:50 WBC RBC Hgb Hct MCV MCH RDW Plt Count Lymph % (Auto) [place] % (Auto) Eos % (Auto) Baso % (Auto) Lymph # Baso # Seg Neutrophils % Lymphocytes % (Manual) Monocytes % (Manual) Nucleated RBC % Seg Neutrophils # Seg Neutrophils # Man Monocytes # (Manual) PT INR Activated Clotting Time POC ABG pH POC ABG pCO2 POC ABG pO2 Sodium Potassium Chloride Carbon Dioxide BUN Creatinine Glucose POC Glucose 126 H 137 H 130 H Calcium Magnesium Direct Bilirubin AST ALT Alkaline Phosphatase Total Creatine Kinase CK-MB (CK-2) CK-MB (CK-2) Rel Index Troponin T C-Reactive Protein Total Protein Albumin Triglycerides Ur Specific [place] Urine WBC (Auto) Miscellaneous Test 05/12/17 05/12/17 05/12/17 05:48 11:33 18:00 WBC RBC Hgb Hct MCV MCH RDW Plt Count Lymph % (Auto) [place] % (Auto) Eos % (Auto) Baso % (Auto) Lymph # Baso # Seg Neutrophils % Lymphocytes % (Manual) Monocytes % (Manual) Nucleated RBC % Seg Neutrophils # Seg Neutrophils # Man Monocytes # (Manual) PT INR Activated Clotting Time POC ABG pH POC ABG pCO2 POC ABG pO2 Sodium Potassium Chloride Carbon Dioxide BUN Creatinine Glucose POC Glucose 126 H 116 H 131 H Calcium Magnesium Direct Bilirubin AST ALT Alkaline Phosphatase Total Creatine Kinase CK-MB (CK-2) CK-MB (CK-2) Rel Index Troponin T C-Reactive Protein Total Protein Albumin Triglycerides Ur Specific [place] Urine WBC (Auto) Miscellaneous Test 05/14/17 05/15/17 05/15/17 11:45 11:27 17:42 WBC RBC Hgb Hct MCV MCH RDW Plt Count Lymph % (Auto) [place] % (Auto) Eos % (Auto) Baso % (Auto) Lymph # Baso # Seg Neutrophils % Lymphocytes % (Manual) Monocytes % (Manual) Nucleated RBC % Seg Neutrophils # Seg Neutrophils # Man Monocytes # (Manual) PT INR Activated Clotting Time POC ABG pH POC ABG pCO2 POC ABG pO2 Sodium Potassium Chloride Carbon Dioxide BUN Creatinine Glucose POC Glucose 123 H 129 H 125 H Calcium Magnesium Direct Bilirubin AST ALT Alkaline Phosphatase Total Creatine Kinase CK-MB (CK-2) CK-MB (CK-2) Rel Index Troponin T C-Reactive Protein Total Protein Albumin Triglycerides Ur Specific [place] Urine WBC (Auto) Miscellaneous Test 05/16/17 05/16/17 05/17/17 00:29 06:50 03:45 WBC RBC Hgb 11.7 L Hct 34.8 L MCV MCH RDW 15.5 H Plt Count Lymph % (Auto) [place] % (Auto) 7.7 H Eos % (Auto) Baso % (Auto) Lymph # Baso # Seg Neutrophils % 73.7 H Lymphocytes % (Manual) Monocytes % (Manual) Nucleated RBC % Seg Neutrophils # Seg Neutrophils # Man Monocytes # (Manual) PT INR Activated Clotting Time POC ABG pH POC ABG pCO2 POC ABG pO2 Sodium Potassium Chloride Carbon Dioxide BUN Creatinine Glucose POC Glucose 141 H 138 H Calcium Magnesium Direct Bilirubin AST ALT Alkaline Phosphatase Total Creatine Kinase CK-MB (CK-2) CK-MB (CK-2) Rel Index Troponin T C-Reactive Protein Total Protein Albumin Triglycerides Ur Specific [place] Urine WBC (Auto) Miscellaneous Test 05/17/17 05/20/17 05/23/17 03:45 17:31 23:09 WBC RBC Hgb Hct MCV MCH RDW Plt Count Lymph % (Auto) [place] % (Auto) Eos % (Auto) Baso % (Auto) Lymph # Baso # Seg Neutrophils % Lymphocytes % (Manual) Monocytes % (Manual) Nucleated RBC % Seg Neutrophils # Seg Neutrophils # Man Monocytes # (Manual) PT INR Activated Clotting Time POC ABG pH POC ABG pCO2 POC ABG pO2 Sodium Potassium Chloride Carbon Dioxide BUN Creatinine 0.2 L Glucose 131 H POC Glucose 116 H 122 H Calcium Magnesium Direct Bilirubin AST ALT Alkaline Phosphatase Total Creatine Kinase CK-MB (CK-2) CK-MB (CK-2) Rel Index Troponin T C-Reactive Protein Total Protein Albumin Triglycerides Ur Specific [place] Urine WBC (Auto) Miscellaneous Test 05/24/17 05/26/17 05/27/17 05:37 05:23 01:16 WBC RBC Hgb Hct MCV MCH RDW Plt Count Lymph % (Auto) [place] % (Auto) Eos % (Auto) Baso % (Auto) Lymph # Baso # Seg Neutrophils % Lymphocytes % (Manual) Monocytes % (Manual) Nucleated RBC % Seg Neutrophils # Seg Neutrophils # Man Monocytes # (Manual) PT INR Activated Clotting Time POC ABG pH POC ABG pCO2 POC ABG pO2 Sodium Potassium Chloride Carbon Dioxide BUN Creatinine Glucose POC Glucose 139 H 108 H 126 H Calcium Magnesium Direct Bilirubin AST ALT Alkaline Phosphatase Total Creatine Kinase CK-MB (CK-2) CK-MB (CK-2) Rel Index Troponin T C-Reactive Protein Total Protein Albumin Triglycerides Ur Specific [place] Urine WBC (Auto) Miscellaneous Test 05/27/17 05/27/17 05/29/17 05:33 21:49 04:37 WBC RBC Hgb Hct MCV MCH RDW 15.5 H Plt Count Lymph % (Auto) [place] % (Auto) Eos % (Auto) Baso % (Auto) Lymph # Baso # Seg Neutrophils % Lymphocytes % (Manual) Monocytes % (Manual) Nucleated RBC % Seg Neutrophils # Seg Neutrophils # Man Monocytes # (Manual) PT INR Activated Clotting Time POC ABG pH POC ABG pCO2 POC ABG pO2 Sodium Potassium Chloride Carbon Dioxide BUN Creatinine Glucose POC Glucose 129 H 110 H Calcium Magnesium Direct Bilirubin AST ALT Alkaline Phosphatase Total Creatine Kinase CK-MB (CK-2) CK-MB (CK-2) Rel Index Troponin T C-Reactive Protein Total Protein Albumin Triglycerides Ur Specific [place] Urine WBC (Auto) Miscellaneous Test 05/29/17 06/01/17 04:37 05:28 WBC RBC Hgb Hct MCV MCH RDW Plt Count Lymph % (Auto) [place] % (Auto) Eos % (Auto) Baso % (Auto) Lymph # Baso # Seg Neutrophils % Lymphocytes % (Manual) Monocytes % (Manual) Nucleated RBC % Seg Neutrophils # Seg Neutrophils # Man Monocytes # (Manual) PT INR Activated Clotting Time POC ABG pH POC ABG pCO2 POC ABG pO2 Sodium Potassium Chloride 97.6 L Carbon Dioxide BUN Creatinine 0.2 L Glucose 121 H POC Glucose 133 H Calcium Magnesium Direct Bilirubin AST ALT Alkaline Phosphatase Total Creatine Kinase CK-MB (CK-2) CK-MB (CK-2) Rel Index Troponin T C-Reactive Protein Total Protein Albumin Triglycerides Ur Specific [place] Urine WBC (Auto) Miscellaneous Test
[2017-06-05] MEDS: ZESTRIL PO SCH (10:08)
[2017-06-05] MEDS: PROTONIX FEEDTUBE SCH (10:09)
[2017-06-05] MEDS: PLAVIX PO SCH (10:09)
[2017-06-05] MEDS: ELIQUIS PO SCH ×2 (10:09→21:16)
[2017-06-05] MEDS: ASPIRIN PO SCH (10:09)
[2017-06-05] MEDS: CORDARONE PO SCH ×2 (10:12→21:16)
[2017-06-05] MEDS: LOPRESSOR PO SCH ×2 (11:00→21:16)
--- NOTE | 2017-06-06 09:21 | Progress Note ---
Assessment and Plan Out of hospital cardiac arrest Hypoxic encephalopathy. Really no big changes today remains the same. Still struggling with lung apnea episodes when we decreased by support although some spontaneous breathing may be noted DVT STEMI-on Eliquis, Plavix, aspirin s/p C with stent placement Prior MRSA,RLL . No fever, off antibiotics Recommendations Discussed with RT in detail. Continue SBT/PSV/CPAP . We'll keep him back and right between 8 and 10, since patient Is to be sure more spontaneous breathing on pressure support at this level. Question is endurance Trach care suction Monitor fever changes No family members present at the bedside for additional update. Critical care time with a 31 minutes of [id number] evaluation and coordination of care Subjective Date of service: 06/06/17 Principal diagnosis: coma,ARV,s/p arrest Interval history: N/a Objective Vital Signs - 12hr 06/05/17 06/05/17 06/05/17 22:00 23:00 23:30 Temperature Pulse Rate 64 62 60 Pulse Rate [ From Monitor] Respiratory 13 14 Rate Blood Pressure 98/66 98/62 98/62 O2 Sat by Pulse 99 99 99 Oximetry O2 Sat by Pulse Oximetry [ Assessment] 06/05/17 06/05/17 06/06/17 23:51 23:52 00:00 Temperature 99.4 F Pulse Rate 61 68 Pulse Rate [ 70 From Monitor] Respiratory 15 22 Rate Blood Pressure 99/63 97/67 O2 Sat by Pulse 99 99 Oximetry O2 Sat by Pulse Oximetry [ Assessment] 06/06/17 06/06/17 06/06/17 01:00 01:12 02:00 Temperature Pulse Rate 66 59 L Pulse Rate [ From Monitor] Respiratory 20 16 Rate Blood Pressure 96/60 94/50 O2 Sat by Pulse 93 92 Oximetry O2 Sat by Pulse 100 Oximetry [ Assessment] 06/06/17 06/06/17 06/06/17 03:00 03:22 03:44 Temperature 98.9 F Pulse Rate 66 63 Pulse Rate [ From Monitor] Respiratory 16 Rate Blood Pressure 95/64 102/57 O2 Sat by Pulse 100 98 Oximetry O2 Sat by Pulse Oximetry [ Assessment] 06/06/17 06/06/17 06/06/17 04:00 05:00 06:00 Temperature Pulse Rate 54 L 68 59 L Pulse Rate [ 70 From Monitor] Respiratory 15 21 20 Rate Blood Pressure 88/51 100/63 92/56 O2 Sat by Pulse 98 95 98 Oximetry O2 Sat by Pulse Oximetry [ Assessment] 06/06/17 06/06/17 06/06/17 07:00 07:20 07:40 Temperature 97.5 F L Pulse Rate 49 L 50 L Pulse Rate [ From Monitor] Respiratory 12 Rate Blood Pressure 86/46 84/60 O2 Sat by Pulse 94 96 Oximetry O2 Sat by Pulse Oximetry [ Assessment] 06/06/17 08:00 Temperature Pulse Rate 65 Pulse Rate [ From Monitor] Respiratory 15 Rate Blood Pressure 105/61 O2 Sat by Pulse 98 Oximetry O2 Sat by Pulse Oximetry [ Assessment] Constitutional: no acute distress, comatose Eyes: non-icteric ENT: oropharynx moist Neck: supple, other (tracheotomy ) Effort: normal Ascultation: Bilateral: clear, diminished breath sounds, other (coarse BS bilaterally) Percussion: Bilateral: not dull Cardiovascular: regular rate and rhythm Gastrointestinal: normoactive bowel sounds, soft, non-tender, non-distended Integumentary: normal Extremities: no cyanosis, no edema, pink and warm Neurologic: other (very limited exam but patient opened eyes spontaneously when called, no posturing, no purposeful movement) Psychiatric: other (eyes open spontaneously but does not follow any voice commands, otherwise nonresponsive except for pain) CBC and BMP: 05/29/17 04:37 05/29/17 04:37 ABG, PT/INR, D-dimer: ABG POC ABG pH 7.524 (7.35-7.45) H 05/09/17 04:19 POC ABG pCO2 34.7 (35-45) L 05/09/17 04:19 POC ABG pO2 107 (80-105) H 05/09/17 04:19 POC ABG HCO3 28.6 05/09/17 04:19 POC ABG Total CO2 30 05/09/17 04:19 POC ABG O2 Sat 99 05/09/17 04:19 PT/INR, D-dimer PT 14.9 Sec. (12.2-14.9) 04/10/17 04:16 INR 1.11 (0.87-1.13) 04/10/17 04:16 Abnormal lab findings: Abnormal Labs 03/29/17 03/29/17 03/29/17 11:35 11:35 11:40 WBC RBC Hgb Hct MCV 98 H MCH 33 H RDW Plt Count Lymph % (Auto) [place] % (Auto) Eos % (Auto) Baso % (Auto) Lymph # Baso # Seg Neutrophils % Lymphocytes % (Manual) Monocytes % (Manual) 9.0 H Nucleated RBC % 1.0 H Seg Neutrophils # Seg Neutrophils # Man Monocytes # (Manual) 0.9 H PT 15.8 H INR 1.20 H Activated Clotting Time POC ABG pH POC ABG pCO2 POC ABG pO2 Sodium Potassium 2.7 L* Chloride 95.3 L Carbon Dioxide 17 L BUN Creatinine Glucose 435 H POC Glucose Calcium Magnesium Direct Bilirubin AST ALT Alkaline Phosphatase Total Creatine Kinase CK-MB (CK-2) CK-MB (CK-2) Rel Index Troponin T C-Reactive Protein Total Protein 6.1 L Albumin 3.5 L Triglycerides Ur Specific [place] Urine WBC (Auto) Miscellaneous Test 03/29/17 03/29/17 03/29/17 12:34 13:10 13:25 WBC RBC Hgb Hct MCV MCH RDW Plt Count Lymph % (Auto) [place] % (Auto) Eos % (Auto) Baso % (Auto) Lymph # Baso # Seg Neutrophils % Lymphocytes % (Manual) Monocytes % (Manual) Nucleated RBC % Seg Neutrophils # Seg Neutrophils # Man Monocytes # (Manual) PT INR Activated Clotting Time 142 H 169 H 175 H POC ABG pH POC ABG pCO2 POC ABG pO2 Sodium Potassium Chloride Carbon Dioxide BUN Creatinine Glucose POC Glucose Calcium Magnesium Direct Bilirubin AST ALT Alkaline Phosphatase Total Creatine Kinase CK-MB (CK-2) CK-MB (CK-2) Rel Index Troponin T C-Reactive Protein Total Protein Albumin Triglycerides Ur Specific [place] Urine WBC (Auto) Miscellaneous Test 03/29/17 03/29/17 03/29/17 14:50 15:18 19:52 WBC RBC Hgb Hct MCV MCH RDW Plt Count Lymph % (Auto) [place] % (Auto) Eos % (Auto) Baso % (Auto) Lymph # Baso # Seg Neutrophils % Lymphocytes % (Manual) Monocytes % (Manual) Nucleated RBC % Seg Neutrophils # Seg Neutrophils # Man Monocytes # (Manual) PT INR Activated Clotting Time 175 H POC ABG pH 7.293 L POC ABG pCO2 POC ABG pO2 602 H Sodium Potassium Chloride Carbon Dioxide BUN Creatinine Glucose POC Glucose Calcium Magnesium Direct Bilirubin AST ALT Alkaline Phosphatase Total Creatine Kinase 7263 H CK-MB (CK-2) > 300.0 H CK-MB (CK-2) Rel Index 4.1 H Troponin T 8.080 H* D C-Reactive Protein Total Protein Albumin Triglycerides 195 H Ur Specific [place] Urine WBC (Auto) Miscellaneous Test 03/30/17 03/30/17 03/30/17 03:50 03:50 06:19 WBC 19.5 H RBC Hgb Hct MCV MCH RDW Plt Count Lymph % (Auto) [place] % (Auto) Eos % (Auto) Baso % (Auto) Lymph # Baso # Seg Neutrophils % Lymphocytes % (Manual) 7.0 L Monocytes % (Manual) Nucleated RBC % Seg Neutrophils # Seg Neutrophils # Man 12.7 H Monocytes # (Manual) 1.4 H PT INR Activated Clotting Time POC ABG pH POC ABG pCO2 28.2 L POC ABG pO2 108 H Sodium Potassium Chloride 108.9 H Carbon Dioxide 15 L BUN 25 H Creatinine Glucose 158 H POC Glucose Calcium 8.1 L Magnesium Direct Bilirubin AST ALT Alkaline Phosphatase Total Creatine Kinase 7963 H CK-MB (CK-2) > 300.0 H CK-MB (CK-2) Rel Index Troponin T 6.850 H* C-Reactive Protein Total Protein Albumin Triglycerides Ur Specific [place] Urine WBC (Auto) Miscellaneous Test 03/30/17 03/30/17 03/31/17 09:45 16:04 02:19 WBC RBC Hgb Hct MCV MCH RDW Plt Count Lymph % (Auto) [place] % (Auto) Eos % (Auto) Baso % (Auto) Lymph # Baso # Seg Neutrophils % Lymphocytes % (Manual) Monocytes % (Manual) Nucleated RBC % Seg Neutrophils # Seg Neutrophils # Man Monocytes # (Manual) PT INR Activated Clotting Time POC ABG pH POC ABG pCO2 POC ABG pO2 Sodium Potassium Chloride Carbon Dioxide BUN Creatinine Glucose POC Glucose 137 H Calcium Magnesium Direct Bilirubin AST ALT Alkaline Phosphatase Total Creatine Kinase CK-MB (CK-2) CK-MB (CK-2) Rel Index Troponin T C-Reactive Protein 21.80 H Total Protein Albumin Triglycerides Ur Specific [place] 1.031 H Urine WBC (Auto) Miscellaneous Test 03/31/17 03/31/17 03/31/17 03:57 06:54 09:22 WBC RBC Hgb Hct MCV MCH RDW Plt Count Lymph % (Auto) [place] % (Auto) Eos % (Auto) Baso % (Auto) Lymph # Baso # Seg Neutrophils % Lymphocytes % (Manual) Monocytes % (Manual) Nucleated RBC % Seg Neutrophils # Seg Neutrophils # Man Monocytes # (Manual) PT INR Activated Clotting Time POC ABG pH 7.475 H POC ABG pCO2 25.4 L POC ABG pO2 62 L Sodium Potassium Chloride Carbon Dioxide 19 L BUN 22 H Creatinine 0.6 L Glucose 148 H POC Glucose 143 H Calcium 8.3 L Magnesium Direct Bilirubin AST ALT Alkaline Phosphatase Total Creatine Kinase CK-MB (CK-2) CK-MB (CK-2) Rel Index Troponin T C-Reactive Protein Total Protein Albumin Triglycerides Ur Specific [place] Urine WBC (Auto) Miscellaneous Test 03/31/17 03/31/17 03/31/17 11:40 17:47 23:38 WBC RBC Hgb Hct MCV MCH RDW Plt Count Lymph % (Auto) [place] % (Auto) Eos % (Auto) Baso % (Auto) Lymph # Baso # Seg Neutrophils % Lymphocytes % (Manual) Monocytes % (Manual) Nucleated RBC % Seg Neutrophils # Seg Neutrophils # Man Monocytes # (Manual) PT INR Activated Clotting Time POC ABG pH POC ABG pCO2 POC ABG pO2 Sodium Potassium Chloride Carbon Dioxide BUN Creatinine Glucose POC Glucose 127 H 137 H 148 H Calcium Magnesium Direct Bilirubin AST ALT Alkaline Phosphatase Total Creatine Kinase CK-MB (CK-2) CK-MB (CK-2) Rel Index Troponin T C-Reactive Protein Total Protein Albumin Triglycerides Ur Specific [place] Urine WBC (Auto) Miscellaneous Test 04/01/17 04/01/17 04/01/17 04:29 05:01 11:54 WBC RBC Hgb Hct MCV MCH RDW Plt Count Lymph % (Auto) [place] % (Auto) Eos % (Auto) Baso % (Auto) Lymph # Baso # Seg Neutrophils % Lymphocytes % (Manual) Monocytes % (Manual) Nucleated RBC % Seg Neutrophils # Seg Neutrophils # Man Monocytes # (Manual) PT INR Activated Clotting Time POC ABG pH 7.513 H POC ABG pCO2 22.1 L POC ABG pO2 64 L Sodium Potassium Chloride Carbon Dioxide BUN Creatinine Glucose POC Glucose 121 H Calcium Magnesium Direct Bilirubin AST ALT Alkaline Phosphatase Total Creatine Kinase CK-MB (CK-2) CK-MB (CK-2) Rel Index Troponin T C-Reactive Protein Total Protein Albumin Triglycerides 151 H Ur Specific [place] Urine WBC (Auto) Miscellaneous Test 04/01/17 04/02/17 04/02/17 18:17 00:11 04:52 WBC RBC Hgb Hct MCV MCH RDW Plt Count Lymph % (Auto) [place] % (Auto) Eos % (Auto) Baso % (Auto) Lymph # Baso # Seg Neutrophils % Lymphocytes % (Manual) Monocytes % (Manual) Nucleated RBC % Seg Neutrophils # Seg Neutrophils # Man Monocytes # (Manual) PT INR Activated Clotting Time POC ABG pH 7.524 H POC ABG pCO2 25.5 L POC ABG pO2 66 L Sodium Potassium Chloride Carbon Dioxide BUN Creatinine Glucose POC Glucose 117 H 122 H Calcium Magnesium Direct Bilirubin AST ALT Alkaline Phosphatase Total Creatine Kinase CK-MB (CK-2) CK-MB (CK-2) Rel Index Troponin T C-Reactive Protein Total Protein Albumin Triglycerides Ur Specific [place] Urine WBC (Auto) Miscellaneous Test 04/02/17 04/02/17 04/02/17 05:18 10:41 12:19 WBC RBC Hgb Hct MCV MCH RDW Plt Count Lymph % (Auto) [place] % (Auto) Eos % (Auto) Baso % (Auto) Lymph # Baso # Seg Neutrophils % Lymphocytes % (Manual) Monocytes % (Manual) Nucleated RBC % Seg Neutrophils # Seg Neutrophils # Man Monocytes # (Manual) PT INR Activated Clotting Time POC ABG pH 7.534 H POC ABG pCO2 27.4 L POC ABG pO2 Sodium Potassium Chloride Carbon Dioxide BUN Creatinine Glucose POC Glucose 132 H 129 H Calcium Magnesium Direct Bilirubin AST ALT Alkaline Phosphatase Total Creatine Kinase CK-MB (CK-2) CK-MB (CK-2) Rel Index Troponin T C-Reactive Protein Total Protein Albumin Triglycerides Ur Specific [place] Urine WBC (Auto) Miscellaneous Test 04/02/17 04/03/17 04/03/17 18:05 00:08 05:09 WBC RBC Hgb Hct MCV MCH RDW Plt Count Lymph % (Auto) [place] % (Auto) Eos % (Auto) Baso % (Auto) Lymph # Baso # Seg Neutrophils % Lymphocytes % (Manual) Monocytes % (Manual) Nucleated RBC % Seg Neutrophils # Seg Neutrophils # Man Monocytes # (Manual) PT INR Activated Clotting Time POC ABG pH 7.455 H POC ABG pCO2 33.2 L POC ABG pO2 120 H Sodium Potassium Chloride Carbon Dioxide BUN Creatinine Glucose POC Glucose 136 H 128 H Calcium Magnesium Direct Bilirubin AST ALT Alkaline Phosphatase Total Creatine Kinase CK-MB (CK-2) CK-MB (CK-2) Rel Index Troponin T C-Reactive Protein Total Protein Albumin Triglycerides Ur Specific [place] Urine WBC (Auto) Miscellaneous Test 04/03/17 04/03/17 04/03/17 06:32 11:54 12:16 WBC 11.9 H RBC Hgb Hct MCV MCH RDW Plt Count 125 L Lymph % (Auto) 4.8 L [place] % (Auto) Eos % (Auto) Baso % (Auto) Lymph # 0.6 L Baso # Seg Neutrophils % 86.7 H Lymphocytes % (Manual) Monocytes % (Manual) Nucleated RBC % Seg Neutrophils # 10.3 H Seg Neutrophils # Man Monocytes # (Manual) PT INR Activated Clotting Time POC ABG pH POC ABG pCO2 POC ABG pO2 Sodium Potassium Chloride Carbon Dioxide BUN Creatinine Glucose POC Glucose 138 H 143 H Calcium Magnesium Direct Bilirubin AST ALT Alkaline Phosphatase Total Creatine Kinase CK-MB (CK-2) CK-MB (CK-2) Rel Index Troponin T C-Reactive Protein Total Protein Albumin Triglycerides Ur Specific [place] Urine WBC (Auto) Miscellaneous Test 04/03/17 04/03/17 04/04/17 17:33 23:59 04:34 WBC RBC Hgb Hct MCV MCH RDW Plt Count Lymph % (Auto) [place] % (Auto) Eos % (Auto) Baso % (Auto) Lymph # Baso # Seg Neutrophils % Lymphocytes % (Manual) Monocytes % (Manual) Nucleated RBC % Seg Neutrophils # Seg Neutrophils # Man Monocytes # (Manual) PT INR Activated Clotting Time POC ABG pH 7.457 H POC ABG pCO2 29.8 L POC ABG pO2 76 L Sodium Potassium Chloride Carbon Dioxide BUN Creatinine Glucose POC Glucose 130 H 155 H Calcium Magnesium Direct Bilirubin AST ALT Alkaline Phosphatase Total Creatine Kinase CK-MB (CK-2) CK-MB (CK-2) Rel Index Troponin T C-Reactive Protein Total Protein Albumin Triglycerides Ur Specific [place] Urine WBC (Auto) Miscellaneous Test 04/04/17 04/04/17 04/04/17 05:27 12:22 18:18 WBC RBC Hgb Hct MCV MCH RDW Plt Count Lymph % (Auto) [place] % (Auto) Eos % (Auto) Baso % (Auto) Lymph # Baso # Seg Neutrophils % Lymphocytes % (Manual) Monocytes % (Manual) Nucleated RBC % Seg Neutrophils # Seg Neutrophils # Man Monocytes # (Manual) PT INR Activated Clotting Time POC ABG pH POC ABG pCO2 POC ABG pO2 Sodium Potassium Chloride Carbon Dioxide BUN Creatinine Glucose POC Glucose 164 H 146 H 130 H Calcium Magnesium Direct Bilirubin AST ALT Alkaline Phosphatase Total Creatine Kinase CK-MB (CK-2) CK-MB (CK-2) Rel Index Troponin T C-Reactive Protein Total Protein Albumin Triglycerides Ur Specific [place] Urine WBC (Auto) Miscellaneous Test 04/05/17 04/05/17 04/05/17 04:43 05:28 11:36 WBC RBC Hgb Hct MCV MCH RDW Plt Count Lymph % (Auto) [place] % (Auto) Eos % (Auto) Baso % (Auto) Lymph # Baso # Seg Neutrophils % Lymphocytes % (Manual) Monocytes % (Manual) Nucleated RBC % Seg Neutrophils # Seg Neutrophils # Man Monocytes # (Manual) PT INR Activated Clotting Time POC ABG pH 7.479 H POC ABG pCO2 33.5 L POC ABG pO2 76 L Sodium Potassium Chloride Carbon Dioxide BUN Creatinine Glucose POC Glucose 145 H 136 H Calcium Magnesium Direct Bilirubin AST ALT Alkaline Phosphatase Total Creatine Kinase CK-MB (CK-2) CK-MB (CK-2) Rel Index Troponin T C-Reactive Protein Total Protein Albumin Triglycerides Ur Specific [place] Urine WBC (Auto) Miscellaneous Test 04/05/17 04/06/17 04/06/17 17:58 00:16 05:26 WBC RBC Hgb Hct MCV MCH RDW Plt Count Lymph % (Auto) [place] % (Auto) Eos % (Auto) Baso % (Auto) Lymph # Baso # Seg Neutrophils % Lymphocytes % (Manual) Monocytes % (Manual) Nucleated RBC % Seg Neutrophils # Seg Neutrophils # Man Monocytes # (Manual) PT INR Activated Clotting Time POC ABG pH POC ABG pCO2 POC ABG pO2 Sodium Potassium Chloride Carbon Dioxide BUN Creatinine Glucose POC Glucose 130 H 159 H 146 H Calcium Magnesium Direct Bilirubin AST ALT Alkaline Phosphatase Total Creatine Kinase CK-MB (CK-2) CK-MB (CK-2) Rel Index Troponin T C-Reactive Protein Total Protein Albumin Triglycerides Ur Specific [place] Urine WBC (Auto) Miscellaneous Test 04/06/17 04/06/17 04/07/17 13:11 16:54 11:45 WBC RBC Hgb Hct MCV MCH RDW Plt Count Lymph % (Auto) [place] % (Auto) Eos % (Auto) Baso % (Auto) Lymph # Baso # Seg Neutrophils % Lymphocytes % (Manual) Monocytes % (Manual) Nucleated RBC % Seg Neutrophils # Seg Neutrophils # Man Monocytes # (Manual) PT INR Activated Clotting Time POC ABG pH 7.517 H POC ABG pCO2 32.1 L POC ABG pO2 Sodium Potassium Chloride Carbon Dioxide BUN Creatinine Glucose POC Glucose 132 H 123 H Calcium Magnesium Direct Bilirubin AST ALT Alkaline Phosphatase Total Creatine Kinase CK-MB (CK-2) CK-MB (CK-2) Rel Index Troponin T C-Reactive Protein Total Protein Albumin Triglycerides Ur Specific [place] Urine WBC (Auto) Miscellaneous Test 04/07/17 04/07/17 04/07/17 12:51 17:40 23:55 WBC RBC Hgb Hct MCV MCH RDW Plt Count Lymph % (Auto) [place] % (Auto) Eos % (Auto) Baso % (Auto) Lymph # Baso # Seg Neutrophils % Lymphocytes % (Manual) Monocytes % (Manual) Nucleated RBC % Seg Neutrophils # Seg Neutrophils # Man Monocytes # (Manual) PT INR Activated Clotting Time POC ABG pH POC ABG pCO2 POC ABG pO2 Sodium Potassium Chloride Carbon Dioxide BUN Creatinine Glucose POC Glucose 138 H 154 H 143 H Calcium Magnesium Direct Bilirubin AST ALT Alkaline Phosphatase Total Creatine Kinase CK-MB (CK-2) CK-MB (CK-2) Rel Index Troponin T C-Reactive Protein Total Protein Albumin Triglycerides Ur Specific [place] Urine WBC (Auto) Miscellaneous Test 04/08/17 04/08/17 04/08/17 05:27 11:14 17:44 WBC RBC Hgb Hct MCV MCH RDW Plt Count Lymph % (Auto) [place] % (Auto) Eos % (Auto) Baso % (Auto) Lymph # Baso # Seg Neutrophils % Lymphocytes % (Manual) Monocytes % (Manual) Nucleated RBC % Seg Neutrophils # Seg Neutrophils # Man Monocytes # (Manual) PT INR Activated Clotting Time POC ABG pH POC ABG pCO2 POC ABG pO2 Sodium Potassium Chloride Carbon Dioxide BUN Creatinine Glucose POC Glucose 142 H 153 H 129 H Calcium Magnesium Direct Bilirubin AST ALT Alkaline Phosphatase Total Creatine Kinase CK-MB (CK-2) CK-MB (CK-2) Rel Index Troponin T C-Reactive Protein Total Protein Albumin Triglycerides Ur Specific [place] Urine WBC (Auto) Miscellaneous Test 04/09/17 04/09/17 04/09/17 08:20 11:21 17:37 WBC RBC Hgb Hct MCV MCH RDW Plt Count Lymph % (Auto) [place] % (Auto) Eos % (Auto) Baso % (Auto) Lymph # Baso # Seg Neutrophils % Lymphocytes % (Manual) Monocytes % (Manual) Nucleated RBC % Seg Neutrophils # Seg Neutrophils # Man Monocytes # (Manual) PT INR Activated Clotting Time POC ABG pH POC ABG pCO2 POC ABG pO2 Sodium 147 H Potassium Chloride 108.8 H Carbon Dioxide BUN 39 H Creatinine 0.5 L Glucose 138 H POC Glucose 152 H 109 H Calcium Magnesium Direct Bilirubin AST ALT Alkaline Phosphatase Total Creatine Kinase CK-MB (CK-2) CK-MB (CK-2) Rel Index Troponin T C-Reactive Protein Total Protein Albumin Triglycerides Ur Specific [place] Urine WBC (Auto) Miscellaneous Test 04/10/17 04/10/17 04/10/17 00:13 04:16 04:16 WBC RBC Hgb 11.5 L Hct MCV 96 H MCH RDW Plt Count 103 L Lymph % (Auto) 11.1 L [place] % (Auto) Eos % (Auto) Baso % (Auto) Lymph # Baso # Seg Neutrophils % 81.5 H Lymphocytes % (Manual) Monocytes % (Manual) Nucleated RBC % Seg Neutrophils # 8.8 H Seg Neutrophils # Man Monocytes # (Manual) PT INR Activated Clotting Time POC ABG pH POC ABG pCO2 POC ABG pO2 Sodium 148 H Potassium Chloride 109.0 H Carbon Dioxide BUN 36 H Creatinine 0.5 L Glucose 131 H POC Glucose 127 H Calcium 8.1 L Magnesium 2.40 H Direct Bilirubin AST 206 H ALT 228 H Alkaline Phosphatase 178 H Total Creatine Kinase CK-MB (CK-2) CK-MB (CK-2) Rel Index Troponin T C-Reactive Protein Total Protein Albumin 2.8 L Triglycerides Ur Specific [place] Urine WBC (Auto) Miscellaneous Test 04/10/17 04/10/17 04/10/17 06:01 11:57 18:27 WBC RBC Hgb Hct MCV MCH RDW Plt Count Lymph % (Auto) [place] % (Auto) Eos % (Auto) Baso % (Auto) Lymph # Baso # Seg Neutrophils % Lymphocytes % (Manual) Monocytes % (Manual) Nucleated RBC % Seg Neutrophils # Seg Neutrophils # Man Monocytes # (Manual) PT INR Activated Clotting Time POC ABG pH POC ABG pCO2 POC ABG pO2 Sodium Potassium Chloride Carbon Dioxide BUN Creatinine Glucose POC Glucose 108 H 154 H 130 H Calcium Magnesium Direct Bilirubin AST ALT Alkaline Phosphatase Total Creatine Kinase CK-MB (CK-2) CK-MB (CK-2) Rel Index Troponin T C-Reactive Protein Total Protein Albumin Triglycerides Ur Specific [place] Urine WBC (Auto) Miscellaneous Test 04/11/17 04/11/17 04/12/17 12:25 17:10 00:22 WBC RBC Hgb Hct MCV MCH RDW Plt Count Lymph % (Auto) [place] % (Auto) Eos % (Auto) Baso % (Auto) Lymph # Baso # Seg Neutrophils % Lymphocytes % (Manual) Monocytes % (Manual) Nucleated RBC % Seg Neutrophils # Seg Neutrophils # Man Monocytes # (Manual) PT INR Activated Clotting Time POC ABG pH POC ABG pCO2 POC ABG pO2 Sodium Potassium Chloride Carbon Dioxide BUN Creatinine Glucose POC Glucose 107 H 129 H 128 H Calcium Magnesium Direct Bilirubin AST ALT Alkaline Phosphatase Total Creatine Kinase CK-MB (CK-2) CK-MB (CK-2) Rel Index Troponin T C-Reactive Protein Total Protein Albumin Triglycerides Ur Specific [place] Urine WBC (Auto) Miscellaneous Test 04/12/17 04/12/17 04/12/17 05:00 11:57 17:47 WBC RBC Hgb Hct MCV MCH RDW Plt Count Lymph % (Auto) [place] % (Auto) Eos % (Auto) Baso % (Auto) Lymph # Baso # Seg Neutrophils % Lymphocytes % (Manual) Monocytes % (Manual) Nucleated RBC % Seg Neutrophils # Seg Neutrophils # Man Monocytes # (Manual) PT INR Activated Clotting Time POC ABG pH POC ABG pCO2 POC ABG pO2 Sodium Potassium Chloride Carbon Dioxide BUN Creatinine Glucose POC Glucose 140 H 142 H Calcium Magnesium Direct Bilirubin AST 158 H ALT 184 H Alkaline Phosphatase 170 H Total Creatine Kinase CK-MB (CK-2) CK-MB (CK-2) Rel Index Troponin T C-Reactive Protein Total Protein Albumin 2.8 L Triglycerides Ur Specific [place] Urine WBC (Auto) Miscellaneous Test 04/12/17 04/12/17 04/13/17 21:36 21:36 01:37 WBC RBC Hgb Hct MCV MCH RDW Plt Count Lymph % (Auto) [place] % (Auto) Eos % (Auto) Baso % (Auto) Lymph # Baso # Seg Neutrophils % Lymphocytes % (Manual) Monocytes % (Manual) Nucleated RBC % Seg Neutrophils # Seg Neutrophils # Man Monocytes # (Manual) PT INR Activated Clotting Time POC ABG pH POC ABG pCO2 POC ABG pO2 Sodium Potassium Chloride Carbon Dioxide BUN Creatinine Glucose POC Glucose 126 H Calcium Magnesium Direct Bilirubin AST ALT Alkaline Phosphatase Total Creatine Kinase 1404 H CK-MB (CK-2) 8.0 H CK-MB (CK-2) Rel Index Troponin T 0.767 H* C-Reactive Protein Total Protein Albumin Triglycerides Ur Specific [place] Urine WBC (Auto) Miscellaneous Test 04/13/17 04/13/17 04/13/17 04:45 04:52 12:17 WBC RBC Hgb Hct MCV MCH RDW Plt Count Lymph % (Auto) [place] % (Auto) Eos % (Auto) Baso % (Auto) Lymph # Baso # Seg Neutrophils % Lymphocytes % (Manual) Monocytes % (Manual) Nucleated RBC % Seg Neutrophils # Seg Neutrophils # Man Monocytes # (Manual) PT INR Activated Clotting Time POC ABG pH POC ABG pCO2 POC ABG pO2 Sodium 148 H Potassium Chloride 112.8 H Carbon Dioxide BUN 33 H Creatinine 0.4 L Glucose 121 H POC Glucose 126 H 149 H Calcium Magnesium Direct Bilirubin AST 160 H ALT 189 H Alkaline Phosphatase 166 H Total Creatine Kinase CK-MB (CK-2) CK-MB (CK-2) Rel Index Troponin T C-Reactive Protein Total Protein Albumin 2.6 L Triglycerides Ur Specific [place] Urine WBC (Auto) Miscellaneous Test 04/13/17 04/14/17 04/14/17 17:45 00:20 00:45 WBC RBC Hgb Hct MCV MCH RDW Plt Count Lymph % (Auto) [place] % (Auto) Eos % (Auto) Baso % (Auto) Lymph # Baso # Seg Neutrophils % Lymphocytes % (Manual) Monocytes % (Manual) Nucleated RBC % Seg Neutrophils # Seg Neutrophils # Man Monocytes # (Manual) PT INR Activated Clotting Time POC ABG pH POC ABG pCO2 POC ABG pO2 Sodium Potassium Chloride Carbon Dioxide BUN Creatinine Glucose POC Glucose 130 H 144 H 144 H Calcium Magnesium Direct Bilirubin AST ALT Alkaline Phosphatase Total Creatine Kinase CK-MB (CK-2) CK-MB (CK-2) Rel Index Troponin T C-Reactive Protein Total Protein Albumin Triglycerides Ur Specific [place] Urine WBC (Auto) Miscellaneous Test 04/14/17 04/14/17 04/14/17 05:40 11:06 11:31 WBC RBC Hgb Hct MCV MCH RDW Plt Count Lymph % (Auto) [place] % (Auto) Eos % (Auto) Baso % (Auto) Lymph # Baso # Seg Neutrophils % Lymphocytes % (Manual) Monocytes % (Manual) Nucleated RBC % Seg Neutrophils # Seg Neutrophils # Man Monocytes # (Manual) PT INR Activated Clotting Time POC ABG pH POC ABG pCO2 POC ABG pO2 Sodium Potassium Chloride Carbon Dioxide BUN Creatinine Glucose POC Glucose 139 H 123 H Calcium Magnesium Direct Bilirubin AST ALT Alkaline Phosphatase Total Creatine Kinase CK-MB (CK-2) CK-MB (CK-2) Rel Index Troponin T C-Reactive Protein Total Protein Albumin Triglycerides Ur Specific [place] 1.033 H Urine WBC (Auto) > 182.0 H Miscellaneous Test 04/14/17 04/14/17 04/15/17 18:00 23:52 05:15 WBC 12.5 H RBC 3.38 L Hgb 10.6 L Hct 32.7 L MCV 97 H MCH RDW Plt Count 107 L Lymph % (Auto) 8.7 L [place] % (Auto) Eos % (Auto) Baso % (Auto) Lymph # 1.1 L Baso # Seg Neutrophils % 86.1 H Lymphocytes % (Manual) Monocytes % (Manual) Nucleated RBC % Seg Neutrophils # 10.7 H Seg Neutrophils # Man Monocytes # (Manual) PT INR Activated Clotting Time POC ABG pH POC ABG pCO2 POC ABG pO2 Sodium Potassium Chloride Carbon Dioxide BUN Creatinine Glucose POC Glucose 133 H 133 H Calcium Magnesium Direct Bilirubin AST ALT Alkaline Phosphatase Total Creatine Kinase CK-MB (CK-2) CK-MB (CK-2) Rel Index Troponin T C-Reactive Protein Total Protein Albumin Triglycerides Ur Specific [place] Urine WBC (Auto) Miscellaneous Test 04/15/17 04/15/17 04/15/17 05:15 05:25 11:50 WBC RBC Hgb Hct MCV MCH RDW Plt Count Lymph % (Auto) [place] % (Auto) Eos % (Auto) Baso % (Auto) Lymph # Baso # Seg Neutrophils % Lymphocytes % (Manual) Monocytes % (Manual) Nucleated RBC % Seg Neutrophils # Seg Neutrophils # Man Monocytes # (Manual) PT INR Activated Clotting Time POC ABG pH POC ABG pCO2 POC ABG pO2 Sodium 149 H Potassium 3.5 L Chloride 114.1 H Carbon Dioxide 21 L BUN 29 H Creatinine 0.4 L Glucose 128 H POC Glucose 133 H 107 H Calcium 8.3 L Magnesium Direct Bilirubin 0.4 H AST 149 H ALT 182 H Alkaline Phosphatase 143 H Total Creatine Kinase CK-MB (CK-2) CK-MB (CK-2) Rel Index Troponin T C-Reactive Protein Total Protein Albumin 2.5 L Triglycerides Ur Specific [place] Urine WBC (Auto) Miscellaneous Test 04/15/17 04/16/17 04/16/17 16:55 00:02 03:17 WBC RBC 3.39 L Hgb 10.5 L Hct 32.4 L MCV 96 H MCH RDW Plt Count 106 L Lymph % (Auto) 6.7 L [place] % (Auto) Eos % (Auto) Baso % (Auto) Lymph # 0.6 L Baso # Seg Neutrophils % 86.8 H Lymphocytes % (Manual) Monocytes % (Manual) Nucleated RBC % Seg Neutrophils # 8.2 H Seg Neutrophils # Man Monocytes # (Manual) PT INR Activated Clotting Time POC ABG pH POC ABG pCO2 POC ABG pO2 Sodium Potassium Chloride Carbon Dioxide BUN Creatinine Glucose POC Glucose 146 H 148 H Calcium Magnesium Direct Bilirubin AST ALT Alkaline Phosphatase Total Creatine Kinase CK-MB (CK-2) CK-MB (CK-2) Rel Index Troponin T C-Reactive Protein Total Protein Albumin Triglycerides Ur Specific [place] Urine WBC (Auto) Miscellaneous Test 04/16/17 04/16/17 04/16/17 03:17 05:19 11:13 WBC RBC Hgb Hct MCV MCH RDW Plt Count Lymph % (Auto) [place] % (Auto) Eos % (Auto) Baso % (Auto) Lymph # Baso # Seg Neutrophils % Lymphocytes % (Manual) Monocytes % (Manual) Nucleated RBC % Seg Neutrophils # Seg Neutrophils # Man Monocytes # (Manual) PT INR Activated Clotting Time POC ABG pH POC ABG pCO2 POC ABG pO2 Sodium 149 H Potassium Chloride 111.1 H Carbon Dioxide 20 L BUN 27 H Creatinine 0.3 L Glucose 156 H POC Glucose 171 H 169 H Calcium 8.3 L Magnesium Direct Bilirubin AST ALT Alkaline Phosphatase Total Creatine Kinase CK-MB (CK-2) CK-MB (CK-2) Rel Index Troponin T C-Reactive Protein Total Protein Albumin Triglycerides Ur Specific [place] Urine WBC (Auto) Miscellaneous Test 04/16/17 04/17/17 04/17/17 17:03 00:00 05:09 WBC RBC Hgb Hct MCV MCH RDW Plt Count Lymph % (Auto) [place] % (Auto) Eos % (Auto) Baso % (Auto) Lymph # Baso # Seg Neutrophils % Lymphocytes % (Manual) Monocytes % (Manual) Nucleated RBC % Seg Neutrophils # Seg Neutrophils # Man Monocytes # (Manual) PT INR Activated Clotting Time POC ABG pH POC ABG pCO2 POC ABG pO2 Sodium Potassium Chloride Carbon Dioxide BUN Creatinine Glucose POC Glucose 151 H 165 H 145 H Calcium Magnesium Direct Bilirubin AST ALT Alkaline Phosphatase Total Creatine Kinase CK-MB (CK-2) CK-MB (CK-2) Rel Index Troponin T C-Reactive Protein Total Protein Albumin Triglycerides Ur Specific [place] Urine WBC (Auto) Miscellaneous Test 04/17/17 04/17/17 04/18/17 11:38 17:47 00:01 WBC RBC Hgb Hct MCV MCH RDW Plt Count Lymph % (Auto) [place] % (Auto) Eos % (Auto) Baso % (Auto) Lymph # Baso # Seg Neutrophils % Lymphocytes % (Manual) Monocytes % (Manual) Nucleated RBC % Seg Neutrophils # Seg Neutrophils # Man Monocytes # (Manual) PT INR Activated Clotting Time POC ABG pH POC ABG pCO2 POC ABG pO2 Sodium Potassium Chloride Carbon Dioxide BUN Creatinine Glucose POC Glucose 170 H 161 H 131 H Calcium Magnesium Direct Bilirubin AST ALT Alkaline Phosphatase Total Creatine Kinase CK-MB (CK-2) CK-MB (CK-2) Rel Index Troponin T C-Reactive Protein Total Protein Albumin Triglycerides Ur Specific [place] Urine WBC (Auto) Miscellaneous Test 04/18/17 04/18/17 04/18/17 03:55 03:55 05:30 WBC RBC 3.05 L Hgb 9.8 L Hct 29.0 L MCV 95 H MCH RDW Plt Count 113 L Lymph % (Auto) [place] % (Auto) Eos % (Auto) 5.3 H Baso % (Auto) Lymph # Baso # Seg Neutrophils % 71.5 H Lymphocytes % (Manual) Monocytes % (Manual) Nucleated RBC % Seg Neutrophils # Seg Neutrophils # Man Monocytes # (Manual) PT INR Activated Clotting Time POC ABG pH 7.460 H POC ABG pCO2 30.8 L POC ABG pO2 129 H Sodium Potassium Chloride Carbon Dioxide 21 L BUN 25 H Creatinine 0.4 L Glucose 123 H POC Glucose Calcium 8.3 L Magnesium Direct Bilirubin AST ALT Alkaline Phosphatase Total Creatine Kinase CK-MB (CK-2) CK-MB (CK-2) Rel Index Troponin T C-Reactive Protein Total Protein Albumin Triglycerides Ur Specific [place] Urine WBC (Auto) Miscellaneous Test 04/18/17 04/18/17 04/19/17 17:10 23:40 04:36 WBC RBC 3.21 L Hgb 10.2 L Hct 30.4 L MCV 95 H MCH RDW Plt Count 131 L Lymph % (Auto) 12.1 L [place] % (Auto) Eos % (Auto) 4.7 H Baso % (Auto) 2.4 H Lymph # 0.9 L Baso # 0.2 H Seg Neutrophils % 75.0 H Lymphocytes % (Manual) Monocytes % (Manual) Nucleated RBC % Seg Neutrophils # Seg Neutrophils # Man Monocytes # (Manual) PT INR Activated Clotting Time POC ABG pH POC ABG pCO2 POC ABG pO2 Sodium Potassium Chloride Carbon Dioxide BUN Creatinine Glucose POC Glucose 135 H 157 H Calcium Magnesium Direct Bilirubin AST ALT Alkaline Phosphatase Total Creatine Kinase CK-MB (CK-2) CK-MB (CK-2) Rel Index Troponin T C-Reactive Protein Total Protein Albumin Triglycerides Ur Specific [place] Urine WBC (Auto) Miscellaneous Test 04/19/17 04/19/17 04/19/17 04:36 05:12 06:50 WBC RBC Hgb Hct MCV MCH RDW Plt Count Lymph % (Auto) [place] % (Auto) Eos % (Auto) Baso % (Auto) Lymph # Baso # Seg Neutrophils % Lymphocytes % (Manual) Monocytes % (Manual) Nucleated RBC % Seg Neutrophils # Seg Neutrophils # Man Monocytes # (Manual) PT INR Activated Clotting Time POC ABG pH 7.516 H POC ABG pCO2 28.0 L POC ABG pO2 Sodium Potassium Chloride Carbon Dioxide 21 L BUN 23 H Creatinine 0.2 L Glucose 137 H POC Glucose 131 H Calcium 7.9 L Magnesium Direct Bilirubin AST ALT Alkaline Phosphatase Total Creatine Kinase CK-MB (CK-2) CK-MB (CK-2) Rel Index Troponin T C-Reactive Protein Total Protein Albumin Triglycerides Ur Specific [place] Urine WBC (Auto) Miscellaneous Test 04/19/17 04/19/17 04/20/17 12:36 17:42 00:12 WBC RBC Hgb Hct MCV MCH RDW Plt Count Lymph % (Auto) [place] % (Auto) Eos % (Auto) Baso % (Auto) Lymph # Baso # Seg Neutrophils % Lymphocytes % (Manual) Monocytes % (Manual) Nucleated RBC % Seg Neutrophils # Seg Neutrophils # Man Monocytes # (Manual) PT INR Activated Clotting Time POC ABG pH POC ABG pCO2 POC ABG pO2 Sodium Potassium Chloride Carbon Dioxide BUN Creatinine Glucose POC Glucose 128 H 140 H 132 H Calcium Magnesium Direct Bilirubin AST ALT Alkaline Phosphatase Total Creatine Kinase CK-MB (CK-2) CK-MB (CK-2) Rel Index Troponin T C-Reactive Protein Total Protein Albumin Triglycerides Ur Specific [place] Urine WBC (Auto) Miscellaneous Test 04/20/17 04/20/17 04/20/17 03:35 03:35 05:10 WBC RBC 3.34 L Hgb 10.4 L Hct 31.6 L MCV 95 H MCH RDW Plt Count Lymph % (Auto) 12.9 L [place] % (Auto) Eos % (Auto) Baso % (Auto) Lymph # Baso # Seg Neutrophils % 77.3 H Lymphocytes % (Manual) Monocytes % (Manual) Nucleated RBC % Seg Neutrophils # Seg Neutrophils # Man Monocytes # (Manual) PT INR Activated Clotting Time POC ABG pH POC ABG pCO2 POC ABG pO2 Sodium Potassium Chloride Carbon Dioxide BUN Creatinine 0.3 L Glucose 155 H POC Glucose 135 H Calcium 7.8 L Magnesium Direct Bilirubin AST ALT Alkaline Phosphatase Total Creatine Kinase CK-MB (CK-2) CK-MB (CK-2) Rel Index Troponin T C-Reactive Protein Total Protein Albumin Triglycerides Ur Specific [place] Urine WBC (Auto) Miscellaneous Test 04/20/17 04/20/17 04/21/17 12:49 18:21 00:05 WBC RBC Hgb Hct MCV MCH RDW Plt Count Lymph % (Auto) [place] % (Auto) Eos % (Auto) Baso % (Auto) Lymph # Baso # Seg Neutrophils % Lymphocytes % (Manual) Monocytes % (Manual) Nucleated RBC % Seg Neutrophils # Seg Neutrophils # Man Monocytes # (Manual) PT INR Activated Clotting Time POC ABG pH POC ABG pCO2 POC ABG pO2 Sodium Potassium Chloride Carbon Dioxide BUN Creatinine Glucose POC Glucose 155 H 165 H 141 H Calcium Magnesium Direct Bilirubin AST ALT Alkaline Phosphatase Total Creatine Kinase CK-MB (CK-2) CK-MB (CK-2) Rel Index Troponin T C-Reactive Protein Total Protein Albumin Triglycerides Ur Specific [place] Urine WBC (Auto) Miscellaneous Test 04/21/17 04/21/17 04/21/17 06:00 12:11 17:04 WBC RBC Hgb Hct MCV MCH RDW Plt Count Lymph % (Auto) [place] % (Auto) Eos % (Auto) Baso % (Auto) Lymph # Baso # Seg Neutrophils % Lymphocytes % (Manual) Monocytes % (Manual) Nucleated RBC % Seg Neutrophils # Seg Neutrophils # Man Monocytes # (Manual) PT INR Activated Clotting Time POC ABG pH POC ABG pCO2 POC ABG pO2 Sodium Potassium Chloride Carbon Dioxide BUN Creatinine Glucose POC Glucose 152 H 165 H 156 H Calcium Magnesium Direct Bilirubin AST ALT Alkaline Phosphatase Total Creatine Kinase CK-MB (CK-2) CK-MB (CK-2) Rel Index Troponin T C-Reactive Protein Total Protein Albumin Triglycerides Ur Specific [place] Urine WBC (Auto) Miscellaneous Test 04/21/17 04/21/17 04/22/17 22:00 23:59 05:49 WBC RBC Hgb Hct MCV MCH RDW Plt Count Lymph % (Auto) [place] % (Auto) Eos % (Auto) Baso % (Auto) Lymph # Baso # Seg Neutrophils % Lymphocytes % (Manual) Monocytes % (Manual) Nucleated RBC % Seg Neutrophils # Seg Neutrophils # Man Monocytes # (Manual) PT INR Activated Clotting Time POC ABG pH POC ABG pCO2 POC ABG pO2 Sodium Potassium Chloride Carbon Dioxide BUN Creatinine Glucose POC Glucose 166 H 173 H Calcium Magnesium Direct Bilirubin AST ALT Alkaline Phosphatase Total Creatine Kinase CK-MB (CK-2) CK-MB (CK-2) Rel Index Troponin T C-Reactive Protein Total Protein Albumin Triglycerides Ur Specific [place] Urine WBC (Auto) 10.0 H Miscellaneous Test 04/22/17 04/22/17 04/23/17 11:11 18:04 00:37 WBC RBC Hgb Hct MCV MCH RDW Plt Count Lymph % (Auto) [place] % (Auto) Eos % (Auto) Baso % (Auto) Lymph # Baso # Seg Neutrophils % Lymphocytes % (Manual) Monocytes % (Manual) Nucleated RBC % Seg Neutrophils # Seg Neutrophils # Man Monocytes # (Manual) PT INR Activated Clotting Time POC ABG pH POC ABG pCO2 POC ABG pO2 Sodium Potassium Chloride Carbon Dioxide BUN Creatinine Glucose POC Glucose 172 H 140 H 135 H Calcium Magnesium Direct Bilirubin AST ALT Alkaline Phosphatase Total Creatine Kinase CK-MB (CK-2) CK-MB (CK-2) Rel Index Troponin T C-Reactive Protein Total Protein Albumin Triglycerides Ur Specific [place] Urine WBC (Auto) Miscellaneous Test 04/23/17 04/23/17 04/23/17 05:33 06:20 11:10 WBC RBC 3.19 L Hgb 9.9 L Hct 30.0 L MCV MCH RDW Plt Count Lymph % (Auto) 8.0 L [place] % (Auto) Eos % (Auto) Baso % (Auto) Lymph # 0.8 L Baso # Seg Neutrophils % 84.5 H Lymphocytes % (Manual) Monocytes % (Manual) Nucleated RBC % Seg Neutrophils # 8.2 H Seg Neutrophils # Man Monocytes # (Manual) PT INR Activated Clotting Time POC ABG pH POC ABG pCO2 POC ABG pO2 Sodium Potassium Chloride Carbon Dioxide BUN Creatinine Glucose POC Glucose 134 H 134 H Calcium Magnesium Direct Bilirubin AST ALT Alkaline Phosphatase Total Creatine Kinase CK-MB (CK-2) CK-MB (CK-2) Rel Index Troponin T C-Reactive Protein Total Protein Albumin Triglycerides Ur Specific [place] Urine WBC (Auto) Miscellaneous Test 04/23/17 04/24/17 04/24/17 17:26 00:53 06:46 WBC RBC Hgb Hct MCV MCH RDW Plt Count Lymph % (Auto) [place] % (Auto) Eos % (Auto) Baso % (Auto) Lymph # Baso # Seg Neutrophils % Lymphocytes % (Manual) Monocytes % (Manual) Nucleated RBC % Seg Neutrophils # Seg Neutrophils # Man Monocytes # (Manual) PT INR Activated Clotting Time POC ABG pH POC ABG pCO2 POC ABG pO2 Sodium Potassium Chloride Carbon Dioxide BUN Creatinine Glucose POC Glucose 164 H 146 H 125 H Calcium Magnesium Direct Bilirubin AST ALT Alkaline Phosphatase Total Creatine Kinase CK-MB (CK-2) CK-MB (CK-2) Rel Index Troponin T C-Reactive Protein Total Protein Albumin Triglycerides Ur Specific [place] Urine WBC (Auto) Miscellaneous Test 04/24/17 04/24/17 04/24/17 11:55 17:50 23:36 WBC RBC Hgb Hct MCV MCH RDW Plt Count Lymph % (Auto) [place] % (Auto) Eos % (Auto) Baso % (Auto) Lymph # Baso # Seg Neutrophils % Lymphocytes % (Manual) Monocytes % (Manual) Nucleated RBC % Seg Neutrophils # Seg Neutrophils # Man Monocytes # (Manual) PT INR Activated Clotting Time POC ABG pH POC ABG pCO2 POC ABG pO2 Sodium Potassium Chloride Carbon Dioxide BUN Creatinine Glucose POC Glucose 156 H 146 H 131 H Calcium Magnesium Direct Bilirubin AST ALT Alkaline Phosphatase Total Creatine Kinase CK-MB (CK-2) CK-MB (CK-2) Rel Index Troponin T C-Reactive Protein Total Protein Albumin Triglycerides Ur Specific [place] Urine WBC (Auto) Miscellaneous Test 04/25/17 04/25/17 04/25/17 04:51 05:16 07:07 WBC RBC Hgb Hct MCV MCH RDW Plt Count Lymph % (Auto) [place] % (Auto) Eos % (Auto) Baso % (Auto) Lymph # Baso # Seg Neutrophils % Lymphocytes % (Manual) Monocytes % (Manual) Nucleated RBC % Seg Neutrophils # Seg Neutrophils # Man Monocytes # (Manual) PT INR Activated Clotting Time POC ABG pH POC ABG pCO2 POC ABG pO2 Sodium Potassium Chloride Carbon Dioxide BUN Creatinine Glucose POC Glucose 139 H Calcium Magnesium Direct Bilirubin AST 105 H ALT 204 H Alkaline Phosphatase 189 H Total Creatine Kinase CK-MB (CK-2) CK-MB (CK-2) Rel Index Troponin T C-Reactive Protein Total Protein Albumin 2.4 L Triglycerides Ur Specific [place] Urine WBC (Auto) Miscellaneous Test Flexitest 1 H 04/25/17 04/25/17 04/25/17 12:29 17:23 23:32 WBC RBC Hgb Hct MCV MCH RDW Plt Count Lymph % (Auto) [place] % (Auto) Eos % (Auto) Baso % (Auto) Lymph # Baso # Seg Neutrophils % Lymphocytes % (Manual) Monocytes % (Manual) Nucleated RBC % Seg Neutrophils # Seg Neutrophils # Man Monocytes # (Manual) PT INR Activated Clotting Time POC ABG pH POC ABG pCO2 POC ABG pO2 Sodium Potassium Chloride Carbon Dioxide BUN Creatinine Glucose POC Glucose 132 H 133 H 128 H Calcium Magnesium Direct Bilirubin AST ALT Alkaline Phosphatase Total Creatine Kinase CK-MB (CK-2) CK-MB (CK-2) Rel Index Troponin T C-Reactive Protein Total Protein Albumin Triglycerides Ur Specific [place] Urine WBC (Auto) Miscellaneous Test 04/26/17 04/26/17 04/26/17 05:24 11:28 17:09 WBC RBC Hgb Hct MCV MCH RDW Plt Count Lymph % (Auto) [place] % (Auto) Eos % (Auto) Baso % (Auto) Lymph # Baso # Seg Neutrophils % Lymphocytes % (Manual) Monocytes % (Manual) Nucleated RBC % Seg Neutrophils # Seg Neutrophils # Man Monocytes # (Manual) PT INR Activated Clotting Time POC ABG pH POC ABG pCO2 POC ABG pO2 Sodium Potassium Chloride Carbon Dioxide BUN Creatinine Glucose POC Glucose 132 H 146 H 141 H Calcium Magnesium Direct Bilirubin AST ALT Alkaline Phosphatase Total Creatine Kinase CK-MB (CK-2) CK-MB (CK-2) Rel Index Troponin T C-Reactive Protein Total Protein Albumin Triglycerides Ur Specific [place] Urine WBC (Auto) Miscellaneous Test 04/26/17 04/27/17 04/27/17 23:52 05:40 05:40 WBC RBC 3.22 L Hgb 10.0 L Hct 29.9 L MCV MCH RDW Plt Count Lymph % (Auto) [place] % (Auto) Eos % (Auto) Baso % (Auto) Lymph # Baso # Seg Neutrophils % 76.6 H Lymphocytes % (Manual) Monocytes % (Manual) Nucleated RBC % Seg Neutrophils # Seg Neutrophils # Man Monocytes # (Manual) PT INR Activated Clotting Time POC ABG pH POC ABG pCO2 POC ABG pO2 Sodium Potassium Chloride Carbon Dioxide BUN Creatinine Glucose POC Glucose 140 H Calcium Magnesium Direct Bilirubin AST 66 H ALT 137 H Alkaline Phosphatase 169 H Total Creatine Kinase CK-MB (CK-2) CK-MB (CK-2) Rel Index Troponin T C-Reactive Protein Total Protein 6.2 L Albumin 2.6 L Triglycerides Ur Specific [place] Urine WBC (Auto) Miscellaneous Test 04/27/17 04/27/17 04/27/17 05:40 06:10 11:13 WBC RBC Hgb Hct MCV MCH RDW Plt Count Lymph % (Auto) [place] % (Auto) Eos % (Auto) Baso % (Auto) Lymph # Baso # Seg Neutrophils % Lymphocytes % (Manual) Monocytes % (Manual) Nucleated RBC % Seg Neutrophils # Seg Neutrophils # Man Monocytes # (Manual) PT INR Activated Clotting Time POC ABG pH POC ABG pCO2 POC ABG pO2 Sodium Potassium Chloride Carbon Dioxide BUN Creatinine 0.2 L Glucose 139 H POC Glucose 130 H 151 H Calcium Magnesium Direct Bilirubin AST ALT Alkaline Phosphatase Total Creatine Kinase CK-MB (CK-2) CK-MB (CK-2) Rel Index Troponin T C-Reactive Protein Total Protein Albumin Triglycerides Ur Specific [place] Urine WBC (Auto) Miscellaneous Test 04/27/17 04/27/17 04/28/17 17:37 23:19 05:24 WBC RBC Hgb Hct MCV MCH RDW Plt Count Lymph % (Auto) [place] % (Auto) Eos % (Auto) Baso % (Auto) Lymph # Baso # Seg Neutrophils % Lymphocytes % (Manual) Monocytes % (Manual) Nucleated RBC % Seg Neutrophils # Seg Neutrophils # Man Monocytes # (Manual) PT INR Activated Clotting Time POC ABG pH POC ABG pCO2 POC ABG pO2 Sodium Potassium Chloride Carbon Dioxide BUN Creatinine Glucose POC Glucose 159 H 130 H 132 H Calcium Magnesium Direct Bilirubin AST ALT Alkaline Phosphatase Total Creatine Kinase CK-MB (CK-2) CK-MB (CK-2) Rel Index Troponin T C-Reactive Protein Total Protein Albumin Triglycerides Ur Specific [place] Urine WBC (Auto) Miscellaneous Test 04/28/17 04/28/17 04/28/17 11:15 17:38 23:23 WBC RBC Hgb Hct MCV MCH RDW Plt Count Lymph % (Auto) [place] % (Auto) Eos % (Auto) Baso % (Auto) Lymph # Baso # Seg Neutrophils % Lymphocytes % (Manual) Monocytes % (Manual) Nucleated RBC % Seg Neutrophils # Seg Neutrophils # Man Monocytes # (Manual) PT INR Activated Clotting Time POC ABG pH POC ABG pCO2 POC ABG pO2 Sodium Potassium Chloride Carbon Dioxide BUN Creatinine Glucose POC Glucose 162 H 133 H 138 H Calcium Magnesium Direct Bilirubin AST ALT Alkaline Phosphatase Total Creatine Kinase CK-MB (CK-2) CK-MB (CK-2) Rel Index Troponin T C-Reactive Protein Total Protein Albumin Triglycerides Ur Specific [place] Urine WBC (Auto) Miscellaneous Test 04/29/17 04/29/17 04/29/17 05:15 12:55 17:21 WBC RBC Hgb Hct MCV MCH RDW Plt Count Lymph % (Auto) [place] % (Auto) Eos % (Auto) Baso % (Auto) Lymph # Baso # Seg Neutrophils % Lymphocytes % (Manual) Monocytes % (Manual) Nucleated RBC % Seg Neutrophils # Seg Neutrophils # Man Monocytes # (Manual) PT INR Activated Clotting Time POC ABG pH POC ABG pCO2 POC ABG pO2 Sodium Potassium Chloride Carbon Dioxide BUN Creatinine Glucose POC Glucose 135 H 127 H 138 H Calcium Magnesium Direct Bilirubin AST ALT Alkaline Phosphatase Total Creatine Kinase CK-MB (CK-2) CK-MB (CK-2) Rel Index Troponin T C-Reactive Protein Total Protein Albumin Triglycerides Ur Specific [place] Urine WBC (Auto) Miscellaneous Test 04/29/17 04/30/17 04/30/17 23:52 04:55 12:22 WBC RBC Hgb Hct MCV MCH RDW Plt Count Lymph % (Auto) [place] % (Auto) Eos % (Auto) Baso % (Auto) Lymph # Baso # Seg Neutrophils % Lymphocytes % (Manual) Monocytes % (Manual) Nucleated RBC % Seg Neutrophils # Seg Neutrophils # Man Monocytes # (Manual) PT INR Activated Clotting Time POC ABG pH POC ABG pCO2 POC ABG pO2 Sodium Potassium Chloride Carbon Dioxide BUN Creatinine Glucose POC Glucose 142 H 146 H 132 H Calcium Magnesium Direct Bilirubin AST ALT Alkaline Phosphatase Total Creatine Kinase CK-MB (CK-2) CK-MB (CK-2) Rel Index Troponin T C-Reactive Protein Total Protein Albumin Triglycerides Ur Specific [place] Urine WBC (Auto) Miscellaneous Test 04/30/17 04/30/17 04/30/17 14:25 17:47 18:20 WBC RBC Hgb Hct MCV MCH RDW Plt Count Lymph % (Auto) [place] % (Auto) Eos % (Auto) Baso % (Auto) Lymph # Baso # Seg Neutrophils % Lymphocytes % (Manual) Monocytes % (Manual) Nucleated RBC % Seg Neutrophils # Seg Neutrophils # Man Monocytes # (Manual) PT INR Activated Clotting Time POC ABG pH 7.551 H POC ABG pCO2 32.7 L POC ABG pO2 Sodium Potassium Chloride Carbon Dioxide BUN 21 H Creatinine 0.2 L Glucose 141 H POC Glucose 139 H Calcium Magnesium Direct Bilirubin AST ALT Alkaline Phosphatase Total Creatine Kinase CK-MB (CK-2) CK-MB (CK-2) Rel Index Troponin T C-Reactive Protein Total Protein Albumin Triglycerides Ur Specific [place] Urine WBC (Auto) Miscellaneous Test 05/01/17 05/01/17 05/01/17 01:26 05:30 05:30 WBC RBC 3.49 L Hgb 10.3 L Hct 31.9 L MCV MCH RDW Plt Count Lymph % (Auto) [place] % (Auto) 8.1 H Eos % (Auto) Baso % (Auto) Lymph # Baso # Seg Neutrophils % 71.3 H Lymphocytes % (Manual) Monocytes % (Manual) Nucleated RBC % Seg Neutrophils # Seg Neutrophils # Man Monocytes # (Manual) PT INR Activated Clotting Time POC ABG pH POC ABG pCO2 POC ABG pO2 Sodium 136 L Potassium Chloride 97.6 L Carbon Dioxide BUN Creatinine 0.2 L Glucose 123 H POC Glucose 116 H Calcium Magnesium Direct Bilirubin AST 71 H ALT 125 H Alkaline Phosphatase 158 H Total Creatine Kinase CK-MB (CK-2) CK-MB (CK-2) Rel Index Troponin T C-Reactive Protein Total Protein Albumin 2.6 L Triglycerides Ur Specific [place] Urine WBC (Auto) Miscellaneous Test 05/01/17 05/01/17 05/02/17 11:59 17:23 00:08 WBC RBC Hgb Hct MCV MCH RDW Plt Count Lymph % (Auto) [place] % (Auto) Eos % (Auto) Baso % (Auto) Lymph # Baso # Seg Neutrophils % Lymphocytes % (Manual) Monocytes % (Manual) Nucleated RBC % Seg Neutrophils # Seg Neutrophils # Man Monocytes # (Manual) PT INR Activated Clotting Time POC ABG pH POC ABG pCO2 POC ABG pO2 Sodium Potassium Chloride Carbon Dioxide BUN Creatinine Glucose POC Glucose 118 H 144 H 122 H Calcium Magnesium Direct Bilirubin AST ALT Alkaline Phosphatase Total Creatine Kinase CK-MB (CK-2) CK-MB (CK-2) Rel Index Troponin T C-Reactive Protein Total Protein Albumin Triglycerides Ur Specific [place] Urine WBC (Auto) Miscellaneous Test 05/02/17 05/02/17 05/02/17 05:50 11:21 17:48 WBC RBC Hgb Hct MCV MCH RDW Plt Count Lymph % (Auto) [place] % (Auto) Eos % (Auto) Baso % (Auto) Lymph # Baso # Seg Neutrophils % Lymphocytes % (Manual) Monocytes % (Manual) Nucleated RBC % Seg Neutrophils # Seg Neutrophils # Man Monocytes # (Manual) PT INR Activated Clotting Time POC ABG pH POC ABG pCO2 POC ABG pO2 Sodium Potassium Chloride Carbon Dioxide BUN Creatinine Glucose POC Glucose 120 H 121 H 140 H Calcium Magnesium Direct Bilirubin AST ALT Alkaline Phosphatase Total Creatine Kinase CK-MB (CK-2) CK-MB (CK-2) Rel Index Troponin T C-Reactive Protein Total Protein Albumin Triglycerides Ur Specific [place] Urine WBC (Auto) Miscellaneous Test 05/02/17 05/03/17 05/03/17 23:12 05:35 11:52 WBC RBC Hgb Hct MCV MCH RDW Plt Count Lymph % (Auto) [place] % (Auto) Eos % (Auto) Baso % (Auto) Lymph # Baso # Seg Neutrophils % Lymphocytes % (Manual) Monocytes % (Manual) Nucleated RBC % Seg Neutrophils # Seg Neutrophils # Man Monocytes # (Manual) PT INR Activated Clotting Time POC ABG pH POC ABG pCO2 POC ABG pO2 Sodium Potassium Chloride Carbon Dioxide BUN Creatinine Glucose POC Glucose 128 H 113 H 126 H Calcium Magnesium Direct Bilirubin AST ALT Alkaline Phosphatase Total Creatine Kinase CK-MB (CK-2) CK-MB (CK-2) Rel Index Troponin T C-Reactive Protein Total Protein Albumin Triglycerides Ur Specific [place] Urine WBC (Auto) Miscellaneous Test 05/03/17 05/03/17 05/04/17 17:29 23:26 04:55 WBC RBC Hgb Hct MCV MCH RDW Plt Count Lymph % (Auto) [place] % (Auto) Eos % (Auto) Baso % (Auto) Lymph # Baso # Seg Neutrophils % Lymphocytes % (Manual) Monocytes % (Manual) Nucleated RBC % Seg Neutrophils # Seg Neutrophils # Man Monocytes # (Manual) PT INR Activated Clotting Time POC ABG pH POC ABG pCO2 POC ABG pO2 Sodium Potassium Chloride Carbon Dioxide BUN Creatinine Glucose POC Glucose 141 H 129 H 126 H Calcium Magnesium Direct Bilirubin AST ALT Alkaline Phosphatase Total Creatine Kinase CK-MB (CK-2) CK-MB (CK-2) Rel Index Troponin T C-Reactive Protein Total Protein Albumin Triglycerides Ur Specific [place] Urine WBC (Auto) Miscellaneous Test 05/04/17 05/04/17 05/05/17 12:09 17:46 00:06 WBC RBC Hgb Hct MCV MCH RDW Plt Count Lymph % (Auto) [place] % (Auto) Eos % (Auto) Baso % (Auto) Lymph # Baso # Seg Neutrophils % Lymphocytes % (Manual) Monocytes % (Manual) Nucleated RBC % Seg Neutrophils # Seg Neutrophils # Man Monocytes # (Manual) PT INR Activated Clotting Time POC ABG pH POC ABG pCO2 POC ABG pO2 Sodium Potassium Chloride Carbon Dioxide BUN Creatinine Glucose POC Glucose 125 H 125 H 110 H Calcium Magnesium Direct Bilirubin AST ALT Alkaline Phosphatase Total Creatine Kinase CK-MB (CK-2) CK-MB (CK-2) Rel Index Troponin T C-Reactive Protein Total Protein Albumin Triglycerides Ur Specific [place] Urine WBC (Auto) Miscellaneous Test 05/05/17 05/05/17 05/05/17 05:48 11:41 16:19 WBC RBC Hgb Hct MCV MCH RDW Plt Count Lymph % (Auto) [place] % (Auto) Eos % (Auto) Baso % (Auto) Lymph # Baso # Seg Neutrophils % Lymphocytes % (Manual) Monocytes % (Manual) Nucleated RBC % Seg Neutrophils # Seg Neutrophils # Man Monocytes # (Manual) PT INR Activated Clotting Time POC ABG pH POC ABG pCO2 POC ABG pO2 Sodium Potassium Chloride Carbon Dioxide BUN Creatinine Glucose POC Glucose 124 H 122 H 120 H Calcium Magnesium Direct Bilirubin AST ALT Alkaline Phosphatase Total Creatine Kinase CK-MB (CK-2) CK-MB (CK-2) Rel Index Troponin T C-Reactive Protein Total Protein Albumin Triglycerides Ur Specific [place] Urine WBC (Auto) Miscellaneous Test 05/06/17 05/06/17 05/06/17 00:16 05:47 11:42 WBC RBC Hgb Hct MCV MCH RDW Plt Count Lymph % (Auto) [place] % (Auto) Eos % (Auto) Baso % (Auto) Lymph # Baso # Seg Neutrophils % Lymphocytes % (Manual) Monocytes % (Manual) Nucleated RBC % Seg Neutrophils # Seg Neutrophils # Man Monocytes # (Manual) PT INR Activated Clotting Time POC ABG pH POC ABG pCO2 POC ABG pO2 Sodium Potassium Chloride Carbon Dioxide BUN Creatinine Glucose POC Glucose 110 H 142 H 120 H Calcium Magnesium Direct Bilirubin AST ALT Alkaline Phosphatase Total Creatine Kinase CK-MB (CK-2) CK-MB (CK-2) Rel Index Troponin T C-Reactive Protein Total Protein Albumin Triglycerides Ur Specific [place] Urine WBC (Auto) Miscellaneous Test 05/06/17 05/07/17 05/07/17 17:46 00:07 05:28 WBC RBC Hgb Hct MCV MCH RDW Plt Count Lymph % (Auto) [place] % (Auto) Eos % (Auto) Baso % (Auto) Lymph # Baso # Seg Neutrophils % Lymphocytes % (Manual) Monocytes % (Manual) Nucleated RBC % Seg Neutrophils # Seg Neutrophils # Man Monocytes # (Manual) PT INR Activated Clotting Time POC ABG pH POC ABG pCO2 POC ABG pO2 Sodium Potassium Chloride Carbon Dioxide BUN Creatinine Glucose POC Glucose 127 H 145 H 124 H Calcium Magnesium Direct Bilirubin AST ALT Alkaline Phosphatase Total Creatine Kinase CK-MB (CK-2) CK-MB (CK-2) Rel Index Troponin T C-Reactive Protein Total Protein Albumin Triglycerides Ur Specific [place] Urine WBC (Auto) Miscellaneous Test 05/07/17 05/07/17 05/08/17 11:17 17:14 00:03 WBC RBC Hgb Hct MCV MCH RDW Plt Count Lymph % (Auto) [place] % (Auto) Eos % (Auto) Baso % (Auto) Lymph # Baso # Seg Neutrophils % Lymphocytes % (Manual) Monocytes % (Manual) Nucleated RBC % Seg Neutrophils # Seg Neutrophils # Man Monocytes # (Manual) PT INR Activated Clotting Time POC ABG pH POC ABG pCO2 POC ABG pO2 Sodium Potassium Chloride Carbon Dioxide BUN Creatinine Glucose POC Glucose 144 H 125 H 122 H Calcium Magnesium Direct Bilirubin AST ALT Alkaline Phosphatase Total Creatine Kinase CK-MB (CK-2) CK-MB (CK-2) Rel Index Troponin T C-Reactive Protein Total Protein Albumin Triglycerides Ur Specific [place] Urine WBC (Auto) Miscellaneous Test 05/08/17 05/08/17 05/08/17 05:43 12:07 18:02 WBC RBC Hgb Hct MCV MCH RDW Plt Count Lymph % (Auto) [place] % (Auto) Eos % (Auto) Baso % (Auto) Lymph # Baso # Seg Neutrophils % Lymphocytes % (Manual) Monocytes % (Manual) Nucleated RBC % Seg Neutrophils # Seg Neutrophils # Man Monocytes # (Manual) PT INR Activated Clotting Time POC ABG pH POC ABG pCO2 POC ABG pO2 Sodium Potassium Chloride Carbon Dioxide BUN Creatinine Glucose POC Glucose 117 H 114 H 129 H Calcium Magnesium Direct Bilirubin AST ALT Alkaline Phosphatase Total Creatine Kinase CK-MB (CK-2) CK-MB (CK-2) Rel Index Troponin T C-Reactive Protein Total Protein Albumin Triglycerides Ur Specific [place] Urine WBC (Auto) Miscellaneous Test 05/08/17 05/09/17 05/09/17 23:53 04:19 05:14 WBC RBC Hgb Hct MCV MCH RDW Plt Count Lymph % (Auto) [place] % (Auto) Eos % (Auto) Baso % (Auto) Lymph # Baso # Seg Neutrophils % Lymphocytes % (Manual) Monocytes % (Manual) Nucleated RBC % Seg Neutrophils # Seg Neutrophils # Man Monocytes # (Manual) PT INR Activated Clotting Time POC ABG pH 7.524 H POC ABG pCO2 34.7 L POC ABG pO2 107 H Sodium Potassium Chloride Carbon Dioxide BUN Creatinine Glucose POC Glucose 125 H 118 H Calcium Magnesium Direct Bilirubin AST ALT Alkaline Phosphatase Total Creatine Kinase CK-MB (CK-2) CK-MB (CK-2) Rel Index Troponin T C-Reactive Protein Total Protein Albumin Triglycerides Ur Specific [place] Urine WBC (Auto) Miscellaneous Test 05/10/17 05/11/17 05/11/17 23:54 05:48 23:50 WBC RBC Hgb Hct MCV MCH RDW Plt Count Lymph % (Auto) [place] % (Auto) Eos % (Auto) Baso % (Auto) Lymph # Baso # Seg Neutrophils % Lymphocytes % (Manual) Monocytes % (Manual) Nucleated RBC % Seg Neutrophils # Seg Neutrophils # Man Monocytes # (Manual) PT INR Activated Clotting Time POC ABG pH POC ABG pCO2 POC ABG pO2 Sodium Potassium Chloride Carbon Dioxide BUN Creatinine Glucose POC Glucose 126 H 137 H 130 H Calcium Magnesium Direct Bilirubin AST ALT Alkaline Phosphatase Total Creatine Kinase CK-MB (CK-2) CK-MB (CK-2) Rel Index Troponin T C-Reactive Protein Total Protein Albumin Triglycerides Ur Specific [place] Urine WBC (Auto) Miscellaneous Test 05/12/17 05/12/17 05/12/17 05:48 11:33 18:00 WBC RBC Hgb Hct MCV MCH RDW Plt Count Lymph % (Auto) [place] % (Auto) Eos % (Auto) Baso % (Auto) Lymph # Baso # Seg Neutrophils % Lymphocytes % (Manual) Monocytes % (Manual) Nucleated RBC % Seg Neutrophils # Seg Neutrophils # Man Monocytes # (Manual) PT INR Activated Clotting Time POC ABG pH POC ABG pCO2 POC ABG pO2 Sodium Potassium Chloride Carbon Dioxide BUN Creatinine Glucose POC Glucose 126 H 116 H 131 H Calcium Magnesium Direct Bilirubin AST ALT Alkaline Phosphatase Total Creatine Kinase CK-MB (CK-2) CK-MB (CK-2) Rel Index Troponin T C-Reactive Protein Total Protein Albumin Triglycerides Ur Specific [place] Urine WBC (Auto) Miscellaneous Test 05/14/17 05/15/17 05/15/17 11:45 11:27 17:42 WBC RBC Hgb Hct MCV MCH RDW Plt Count Lymph % (Auto) [place] % (Auto) Eos % (Auto) Baso % (Auto) Lymph # Baso # Seg Neutrophils % Lymphocytes % (Manual) Monocytes % (Manual) Nucleated RBC % Seg Neutrophils # Seg Neutrophils # Man Monocytes # (Manual) PT INR Activated Clotting Time POC ABG pH POC ABG pCO2 POC ABG pO2 Sodium Potassium Chloride Carbon Dioxide BUN Creatinine Glucose POC Glucose 123 H 129 H 125 H Calcium Magnesium Direct Bilirubin AST ALT Alkaline Phosphatase Total Creatine Kinase CK-MB (CK-2) CK-MB (CK-2) Rel Index Troponin T C-Reactive Protein Total Protein Albumin Triglycerides Ur Specific [place] Urine WBC (Auto) Miscellaneous Test 05/16/17 05/16/17 05/17/17 00:29 06:50 03:45 WBC RBC Hgb 11.7 L Hct 34.8 L MCV MCH RDW 15.5 H Plt Count Lymph % (Auto) [place] % (Auto) 7.7 H Eos % (Auto) Baso % (Auto) Lymph # Baso # Seg Neutrophils % 73.7 H Lymphocytes % (Manual) Monocytes % (Manual) Nucleated RBC % Seg Neutrophils # Seg Neutrophils # Man Monocytes # (Manual) PT INR Activated Clotting Time POC ABG pH POC ABG pCO2 POC ABG pO2 Sodium Potassium Chloride Carbon Dioxide BUN Creatinine Glucose POC Glucose 141 H 138 H Calcium Magnesium Direct Bilirubin AST ALT Alkaline Phosphatase Total Creatine Kinase CK-MB (CK-2) CK-MB (CK-2) Rel Index Troponin T C-Reactive Protein Total Protein Albumin Triglycerides Ur Specific [place] Urine WBC (Auto) Miscellaneous Test 05/17/17 05/20/17 05/23/17 03:45 17:31 23:09 WBC RBC Hgb Hct MCV MCH RDW Plt Count Lymph % (Auto) [place] % (Auto) Eos % (Auto) Baso % (Auto) Lymph # Baso # Seg Neutrophils % Lymphocytes % (Manual) Monocytes % (Manual) Nucleated RBC % Seg Neutrophils # Seg Neutrophils # Man Monocytes # (Manual) PT INR Activated Clotting Time POC ABG pH POC ABG pCO2 POC ABG pO2 Sodium Potassium Chloride Carbon Dioxide BUN Creatinine 0.2 L Glucose 131 H POC Glucose 116 H 122 H Calcium Magnesium Direct Bilirubin AST ALT Alkaline Phosphatase Total Creatine Kinase CK-MB (CK-2) CK-MB (CK-2) Rel Index Troponin T C-Reactive Protein Total Protein Albumin Triglycerides Ur Specific [place] Urine WBC (Auto) Miscellaneous Test 05/24/17 05/26/17 05/27/17 05:37 05:23 01:16 WBC RBC Hgb Hct MCV MCH RDW Plt Count Lymph % (Auto) [place] % (Auto) Eos % (Auto) Baso % (Auto) Lymph # Baso # Seg Neutrophils % Lymphocytes % (Manual) Monocytes % (Manual) Nucleated RBC % Seg Neutrophils # Seg Neutrophils # Man Monocytes # (Manual) PT INR Activated Clotting Time POC ABG pH POC ABG pCO2 POC ABG pO2 Sodium Potassium Chloride Carbon Dioxide BUN Creatinine Glucose POC Glucose 139 H 108 H 126 H Calcium Magnesium Direct Bilirubin AST ALT Alkaline Phosphatase Total Creatine Kinase CK-MB (CK-2) CK-MB (CK-2) Rel Index Troponin T C-Reactive Protein Total Protein Albumin Triglycerides Ur Specific [place] Urine WBC (Auto) Miscellaneous Test 05/27/17 05/27/17 05/29/17 05:33 21:49 04:37 WBC RBC Hgb Hct MCV MCH RDW 15.5 H Plt Count Lymph % (Auto) [place] % (Auto) Eos % (Auto) Baso % (Auto) Lymph # Baso # Seg Neutrophils % Lymphocytes % (Manual) Monocytes % (Manual) Nucleated RBC % Seg Neutrophils # Seg Neutrophils # Man Monocytes # (Manual) PT INR Activated Clotting Time POC ABG pH POC ABG pCO2 POC ABG pO2 Sodium Potassium Chloride Carbon Dioxide BUN Creatinine Glucose POC Glucose 129 H 110 H Calcium Magnesium Direct Bilirubin AST ALT Alkaline Phosphatase Total Creatine Kinase CK-MB (CK-2) CK-MB (CK-2) Rel Index Troponin T C-Reactive Protein Total Protein Albumin Triglycerides Ur Specific [place] Urine WBC (Auto) Miscellaneous Test 05/29/17 06/01/17 04:37 05:28 WBC RBC Hgb Hct MCV MCH RDW Plt Count Lymph % (Auto) [place] % (Auto) Eos % (Auto) Baso % (Auto) Lymph # Baso # Seg Neutrophils % Lymphocytes % (Manual) Monocytes % (Manual) Nucleated RBC % Seg Neutrophils # Seg Neutrophils # Man Monocytes # (Manual) PT INR Activated Clotting Time POC ABG pH POC ABG pCO2 POC ABG pO2 Sodium Potassium Chloride 97.6 L Carbon Dioxide BUN Creatinine 0.2 L Glucose 121 H POC Glucose 133 H Calcium Magnesium Direct Bilirubin AST ALT Alkaline Phosphatase Total Creatine Kinase CK-MB (CK-2) CK-MB (CK-2) Rel Index Troponin T C-Reactive Protein Total Protein Albumin Triglycerides Ur Specific [place] Urine WBC (Auto) Miscellaneous Test
[2017-06-06] MEDS: CORDARONE PO SCH ×2 (10:54→22:44)
[2017-06-06] MEDS: PLAVIX PO SCH (10:55)
[2017-06-06] MEDS: PROTONIX FEEDTUBE SCH (10:55)
[2017-06-06] MEDS: ELIQUIS PO SCH ×2 (10:55→22:44)
[2017-06-06] MEDS: ASPIRIN PO SCH (10:55)
[2017-06-06] MEDS: ZESTRIL PO SCH ×2 (10:56→11:54)
[2017-06-06] MEDS: LOPRESSOR PO SCH ×2 (10:57→22:45)
[2017-06-06] MEDS ORDERED: SODIUM BICARBONATE FEEDTUBE PRN (14:53)
[2017-06-06] MEDS ORDERED: PANCREAZE DR 10,500 UNIT FEEDTUBE PRN (14:53)
[2017-06-06] MEDS ORDERED: SIMPLE SYRUP FEEDTUBE PRN ×2 (14:53)
--- NOTE | 2017-06-07 09:26 | Progress Note ---
Assessment and Plan Out of hospital cardiac arrest Hypoxic encephalopathy. Remains the same. Respiratory failure. tolerating spontaneous breathing trial better now. On pressure support CPAP since yesterday. Currently 8/5 cm H2O, no obvious DVT RUE. On Eliquis STEMI-on Eliquis, Plavix, aspirin s/p LHC with stent placement Prior MRSA,RLL . No fever, off antibiotics Recommendations Continue SBT/PSV/CPAP . If he can't tolerate 5/5 cm we'll switch to tracheotomy mask/oxygen support. We'll need to let him be on pressure support for a while to make sure central apneas are not a recurring issue Trach care suction Monitor fever changes and secretions Discussed with RT in detail. No family members present at the bedside for additional update. Critical care time with a 31 minutes of [id number] evaluation and coordination of care Subjective Date of service: 06/07/17 Principal diagnosis: coma,ARV,s/p arrest,ARF MV Interval history: Intubated Objective Vital Signs - 12hr 06/06/17 06/06/17 06/06/17 21:30 21:32 21:39 Temperature Pulse Rate 61 62 Pulse Rate [ From Monitor] Respiratory 13 13 Rate Blood Pressure 94/58 94/58 O2 Sat by Pulse 98 98 Oximetry O2 Sat by Pulse 100 Oximetry [ Assessment] 06/06/17 06/06/17 06/06/17 22:00 22:30 22:45 Temperature Pulse Rate 61 62 66 Pulse Rate [ From Monitor] Respiratory 16 21 Rate Blood Pressure 92/57 95/53 95/53 O2 Sat by Pulse 98 97 Oximetry O2 Sat by Pulse Oximetry [ Assessment] 06/06/17 06/06/17 06/07/17 23:00 23:31 00:00 Temperature 99.3 F Pulse Rate 89 87 85 Pulse Rate [ From Monitor] Respiratory 18 25 H 16 Rate Blood Pressure 101/61 102/61 110/60 O2 Sat by Pulse 95 99 99 Oximetry O2 Sat by Pulse Oximetry [ Assessment] 06/07/17 06/07/17 06/07/17 00:30 00:34 01:00 Temperature Pulse Rate 79 80 79 Pulse Rate [ From Monitor] Respiratory 21 21 Rate Blood Pressure 102/54 101/61 109/64 O2 Sat by Pulse 99 100 Oximetry O2 Sat by Pulse Oximetry [ Assessment] 06/07/17 06/07/17 06/07/17 01:30 02:00 02:30 Temperature Pulse Rate 80 77 79 Pulse Rate [ From Monitor] Respiratory 21 15 17 Rate Blood Pressure 106/65 100/58 106/63 O2 Sat by Pulse 100 98 94 Oximetry O2 Sat by Pulse Oximetry [ Assessment] 06/07/17 06/07/17 06/07/17 03:00 03:30 03:32 Temperature Pulse Rate 75 76 Pulse Rate [ From Monitor] Respiratory 19 Rate Blood Pressure 105/63 105/63 98/50 O2 Sat by Pulse 97 100 100 Oximetry O2 Sat by Pulse Oximetry [ Assessment] 06/07/17 06/07/17 06/07/17 04:00 04:30 05:00 Temperature 99.0 F Pulse Rate 68 76 72 Pulse Rate [ 64 From Monitor] Respiratory 15 19 18 Rate Blood Pressure 105/69 112/69 108/72 O2 Sat by Pulse 96 100 Oximetry O2 Sat by Pulse Oximetry [ Assessment] 06/07/17 06/07/17 06/07/17 05:30 06:00 06:30 Temperature Pulse Rate 58 L 80 76 Pulse Rate [ From Monitor] Respiratory 14 20 18 Rate Blood Pressure 98/50 108/73 107/67 O2 Sat by Pulse 95 100 Oximetry O2 Sat by Pulse Oximetry [ Assessment] 06/07/17 06/07/17 06/07/17 07:00 07:30 08:00 Temperature 98.3 F Pulse Rate 63 75 57 L Pulse Rate [ From Monitor] Respiratory 17 18 20 Rate Blood Pressure 101/63 111/71 110/69 O2 Sat by Pulse 99 100 100 Oximetry O2 Sat by Pulse Oximetry [ Assessment] 06/07/17 08:30 Temperature Pulse Rate 67 Pulse Rate [ From Monitor] Respiratory 18 Rate Blood Pressure 110/69 O2 Sat by Pulse 99 Oximetry O2 Sat by Pulse Oximetry [ Assessment] Constitutional: no acute distress, other (stuporous) Eyes: non-icteric ENT: oropharynx moist Neck: supple, other (tracheotomy ) Effort: normal Ascultation: Bilateral: clear, diminished breath sounds Percussion: Bilateral: not dull Cardiovascular: regular rate and rhythm Gastrointestinal: normoactive bowel sounds, soft, non-tender, non-distended Integumentary: normal Extremities: no cyanosis, no edema, pink and warm Neurologic: other ( some opened eyes spontaneously when called, no posturing, no purposeful movement) Psychiatric: other (eyes open spontaneously but does not follow any voice commands, otherwise nonresponsive except for pain) CBC and BMP: 05/29/17 04:37 05/29/17 04:37 ABG, PT/INR, D-dimer: ABG POC ABG pH 7.524 (7.35-7.45) H 05/09/17 04:19 POC ABG pCO2 34.7 (35-45) L 05/09/17 04:19 POC ABG pO2 107 (80-105) H 05/09/17 04:19 POC ABG HCO3 28.6 05/09/17 04:19 POC ABG Total CO2 30 05/09/17 04:19 POC ABG O2 Sat 99 05/09/17 04:19 PT/INR, D-dimer PT 14.9 Sec. (12.2-14.9) 04/10/17 04:16 INR 1.11 (0.87-1.13) 04/10/17 04:16 Abnormal lab findings: Abnormal Labs 03/29/17 03/29/17 03/29/17 11:35 11:35 11:40 WBC RBC Hgb Hct MCV 98 H MCH 33 H RDW Plt Count Lymph % (Auto) [place] % (Auto) Eos % (Auto) Baso % (Auto) Lymph # Baso # Seg Neutrophils % Lymphocytes % (Manual) Monocytes % (Manual) 9.0 H Nucleated RBC % 1.0 H Seg Neutrophils # Seg Neutrophils # Man Monocytes # (Manual) 0.9 H PT 15.8 H INR 1.20 H Activated Clotting Time POC ABG pH POC ABG pCO2 POC ABG pO2 Sodium Potassium 2.7 L* Chloride 95.3 L Carbon Dioxide 17 L BUN Creatinine Glucose 435 H POC Glucose Calcium Magnesium Direct Bilirubin AST ALT Alkaline Phosphatase Total Creatine Kinase CK-MB (CK-2) CK-MB (CK-2) Rel Index Troponin T C-Reactive Protein Total Protein 6.1 L Albumin 3.5 L Triglycerides Ur Specific [place] Urine WBC (Auto) Miscellaneous Test 03/29/17 03/29/17 03/29/17 12:34 13:10 13:25 WBC RBC Hgb Hct MCV MCH RDW Plt Count Lymph % (Auto) [place] % (Auto) Eos % (Auto) Baso % (Auto) Lymph # Baso # Seg Neutrophils % Lymphocytes % (Manual) Monocytes % (Manual) Nucleated RBC % Seg Neutrophils # Seg Neutrophils # Man Monocytes # (Manual) PT INR Activated Clotting Time 142 H 169 H 175 H POC ABG pH POC ABG pCO2 POC ABG pO2 Sodium Potassium Chloride Carbon Dioxide BUN Creatinine Glucose POC Glucose Calcium Magnesium Direct Bilirubin AST ALT Alkaline Phosphatase Total Creatine Kinase CK-MB (CK-2) CK-MB (CK-2) Rel Index Troponin T C-Reactive Protein Total Protein Albumin Triglycerides Ur Specific [place] Urine WBC (Auto) Miscellaneous Test 03/29/17 03/29/17 03/29/17 14:50 15:18 19:52 WBC RBC Hgb Hct MCV MCH RDW Plt Count Lymph % (Auto) [place] % (Auto) Eos % (Auto) Baso % (Auto) Lymph # Baso # Seg Neutrophils % Lymphocytes % (Manual) Monocytes % (Manual) Nucleated RBC % Seg Neutrophils # Seg Neutrophils # Man Monocytes # (Manual) PT INR Activated Clotting Time 175 H POC ABG pH 7.293 L POC ABG pCO2 POC ABG pO2 602 H Sodium Potassium Chloride Carbon Dioxide BUN Creatinine Glucose POC Glucose Calcium Magnesium Direct Bilirubin AST ALT Alkaline Phosphatase Total Creatine Kinase 7263 H CK-MB (CK-2) > 300.0 H CK-MB (CK-2) Rel Index 4.1 H Troponin T 8.080 H* D C-Reactive Protein Total Protein Albumin Triglycerides 195 H Ur Specific [place] Urine WBC (Auto) Miscellaneous Test 03/30/17 03/30/17 03/30/17 03:50 03:50 06:19 WBC 19.5 H RBC Hgb Hct MCV MCH RDW Plt Count Lymph % (Auto) [place] % (Auto) Eos % (Auto) Baso % (Auto) Lymph # Baso # Seg Neutrophils % Lymphocytes % (Manual) 7.0 L Monocytes % (Manual) Nucleated RBC % Seg Neutrophils # Seg Neutrophils # Man 12.7 H Monocytes # (Manual) 1.4 H PT INR Activated Clotting Time POC ABG pH POC ABG pCO2 28.2 L POC ABG pO2 108 H Sodium Potassium Chloride 108.9 H Carbon Dioxide 15 L BUN 25 H Creatinine Glucose 158 H POC Glucose Calcium 8.1 L Magnesium Direct Bilirubin AST ALT Alkaline Phosphatase Total Creatine Kinase 7963 H CK-MB (CK-2) > 300.0 H CK-MB (CK-2) Rel Index Troponin T 6.850 H* C-Reactive Protein Total Protein Albumin Triglycerides Ur Specific [place] Urine WBC (Auto) Miscellaneous Test 03/30/17 03/30/17 03/31/17 09:45 16:04 02:19 WBC RBC Hgb Hct MCV MCH RDW Plt Count Lymph % (Auto) [place] % (Auto) Eos % (Auto) Baso % (Auto) Lymph # Baso # Seg Neutrophils % Lymphocytes % (Manual) Monocytes % (Manual) Nucleated RBC % Seg Neutrophils # Seg Neutrophils # Man Monocytes # (Manual) PT INR Activated Clotting Time POC ABG pH POC ABG pCO2 POC ABG pO2 Sodium Potassium Chloride Carbon Dioxide BUN Creatinine Glucose POC Glucose 137 H Calcium Magnesium Direct Bilirubin AST ALT Alkaline Phosphatase Total Creatine Kinase CK-MB (CK-2) CK-MB (CK-2) Rel Index Troponin T C-Reactive Protein 21.80 H Total Protein Albumin Triglycerides Ur Specific [place] 1.031 H Urine WBC (Auto) Miscellaneous Test 03/31/17 03/31/17 03/31/17 03:57 06:54 09:22 WBC RBC Hgb Hct MCV MCH RDW Plt Count Lymph % (Auto) [place] % (Auto) Eos % (Auto) Baso % (Auto) Lymph # Baso # Seg Neutrophils % Lymphocytes % (Manual) Monocytes % (Manual) Nucleated RBC % Seg Neutrophils # Seg Neutrophils # Man Monocytes # (Manual) PT INR Activated Clotting Time POC ABG pH 7.475 H POC ABG pCO2 25.4 L POC ABG pO2 62 L Sodium Potassium Chloride Carbon Dioxide 19 L BUN 22 H Creatinine 0.6 L Glucose 148 H POC Glucose 143 H Calcium 8.3 L Magnesium Direct Bilirubin AST ALT Alkaline Phosphatase Total Creatine Kinase CK-MB (CK-2) CK-MB (CK-2) Rel Index Troponin T C-Reactive Protein Total Protein Albumin Triglycerides Ur Specific [place] Urine WBC (Auto) Miscellaneous Test 03/31/17 03/31/17 03/31/17 11:40 17:47 23:38 WBC RBC Hgb Hct MCV MCH RDW Plt Count Lymph % (Auto) [place] % (Auto) Eos % (Auto) Baso % (Auto) Lymph # Baso # Seg Neutrophils % Lymphocytes % (Manual) Monocytes % (Manual) Nucleated RBC % Seg Neutrophils # Seg Neutrophils # Man Monocytes # (Manual) PT INR Activated Clotting Time POC ABG pH POC ABG pCO2 POC ABG pO2 Sodium Potassium Chloride Carbon Dioxide BUN Creatinine Glucose POC Glucose 127 H 137 H 148 H Calcium Magnesium Direct Bilirubin AST ALT Alkaline Phosphatase Total Creatine Kinase CK-MB (CK-2) CK-MB (CK-2) Rel Index Troponin T C-Reactive Protein Total Protein Albumin Triglycerides Ur Specific [place] Urine WBC (Auto) Miscellaneous Test 04/01/17 04/01/17 04/01/17 04:29 05:01 11:54 WBC RBC Hgb Hct MCV MCH RDW Plt Count Lymph % (Auto) [place] % (Auto) Eos % (Auto) Baso % (Auto) Lymph # Baso # Seg Neutrophils % Lymphocytes % (Manual) Monocytes % (Manual) Nucleated RBC % Seg Neutrophils # Seg Neutrophils # Man Monocytes # (Manual) PT INR Activated Clotting Time POC ABG pH 7.513 H POC ABG pCO2 22.1 L POC ABG pO2 64 L Sodium Potassium Chloride Carbon Dioxide BUN Creatinine Glucose POC Glucose 121 H Calcium Magnesium Direct Bilirubin AST ALT Alkaline Phosphatase Total Creatine Kinase CK-MB (CK-2) CK-MB (CK-2) Rel Index Troponin T C-Reactive Protein Total Protein Albumin Triglycerides 151 H Ur Specific [place] Urine WBC (Auto) Miscellaneous Test 04/01/17 04/02/17 04/02/17 18:17 00:11 04:52 WBC RBC Hgb Hct MCV MCH RDW Plt Count Lymph % (Auto) [place] % (Auto) Eos % (Auto) Baso % (Auto) Lymph # Baso # Seg Neutrophils % Lymphocytes % (Manual) Monocytes % (Manual) Nucleated RBC % Seg Neutrophils # Seg Neutrophils # Man Monocytes # (Manual) PT INR Activated Clotting Time POC ABG pH 7.524 H POC ABG pCO2 25.5 L POC ABG pO2 66 L Sodium Potassium Chloride Carbon Dioxide BUN Creatinine Glucose POC Glucose 117 H 122 H Calcium Magnesium Direct Bilirubin AST ALT Alkaline Phosphatase Total Creatine Kinase CK-MB (CK-2) CK-MB (CK-2) Rel Index Troponin T C-Reactive Protein Total Protein Albumin Triglycerides Ur Specific [place] Urine WBC (Auto) Miscellaneous Test 04/02/17 04/02/17 04/02/17 05:18 10:41 12:19 WBC RBC Hgb Hct MCV MCH RDW Plt Count Lymph % (Auto) [place] % (Auto) Eos % (Auto) Baso % (Auto) Lymph # Baso # Seg Neutrophils % Lymphocytes % (Manual) Monocytes % (Manual) Nucleated RBC % Seg Neutrophils # Seg Neutrophils # Man Monocytes # (Manual) PT INR Activated Clotting Time POC ABG pH 7.534 H POC ABG pCO2 27.4 L POC ABG pO2 Sodium Potassium Chloride Carbon Dioxide BUN Creatinine Glucose POC Glucose 132 H 129 H Calcium Magnesium Direct Bilirubin AST ALT Alkaline Phosphatase Total Creatine Kinase CK-MB (CK-2) CK-MB (CK-2) Rel Index Troponin T C-Reactive Protein Total Protein Albumin Triglycerides Ur Specific [place] Urine WBC (Auto) Miscellaneous Test 04/02/17 04/03/17 04/03/17 18:05 00:08 05:09 WBC RBC Hgb Hct MCV MCH RDW Plt Count Lymph % (Auto) [place] % (Auto) Eos % (Auto) Baso % (Auto) Lymph # Baso # Seg Neutrophils % Lymphocytes % (Manual) Monocytes % (Manual) Nucleated RBC % Seg Neutrophils # Seg Neutrophils # Man Monocytes # (Manual) PT INR Activated Clotting Time POC ABG pH 7.455 H POC ABG pCO2 33.2 L POC ABG pO2 120 H Sodium Potassium Chloride Carbon Dioxide BUN Creatinine Glucose POC Glucose 136 H 128 H Calcium Magnesium Direct Bilirubin AST ALT Alkaline Phosphatase Total Creatine Kinase CK-MB (CK-2) CK-MB (CK-2) Rel Index Troponin T C-Reactive Protein Total Protein Albumin Triglycerides Ur Specific [place] Urine WBC (Auto) Miscellaneous Test 04/03/17 04/03/17 04/03/17 06:32 11:54 12:16 WBC 11.9 H RBC Hgb Hct MCV MCH RDW Plt Count 125 L Lymph % (Auto) 4.8 L [place] % (Auto) Eos % (Auto) Baso % (Auto) Lymph # 0.6 L Baso # Seg Neutrophils % 86.7 H Lymphocytes % (Manual) Monocytes % (Manual) Nucleated RBC % Seg Neutrophils # 10.3 H Seg Neutrophils # Man Monocytes # (Manual) PT INR Activated Clotting Time POC ABG pH POC ABG pCO2 POC ABG pO2 Sodium Potassium Chloride Carbon Dioxide BUN Creatinine Glucose POC Glucose 138 H 143 H Calcium Magnesium Direct Bilirubin AST ALT Alkaline Phosphatase Total Creatine Kinase CK-MB (CK-2) CK-MB (CK-2) Rel Index Troponin T C-Reactive Protein Total Protein Albumin Triglycerides Ur Specific [place] Urine WBC (Auto) Miscellaneous Test 04/03/17 04/03/17 04/04/17 17:33 23:59 04:34 WBC RBC Hgb Hct MCV MCH RDW Plt Count Lymph % (Auto) [place] % (Auto) Eos % (Auto) Baso % (Auto) Lymph # Baso # Seg Neutrophils % Lymphocytes % (Manual) Monocytes % (Manual) Nucleated RBC % Seg Neutrophils # Seg Neutrophils # Man Monocytes # (Manual) PT INR Activated Clotting Time POC ABG pH 7.457 H POC ABG pCO2 29.8 L POC ABG pO2 76 L Sodium Potassium Chloride Carbon Dioxide BUN Creatinine Glucose POC Glucose 130 H 155 H Calcium Magnesium Direct Bilirubin AST ALT Alkaline Phosphatase Total Creatine Kinase CK-MB (CK-2) CK-MB (CK-2) Rel Index Troponin T C-Reactive Protein Total Protein Albumin Triglycerides Ur Specific [place] Urine WBC (Auto) Miscellaneous Test 04/04/17 04/04/17 04/04/17 05:27 12:22 18:18 WBC RBC Hgb Hct MCV MCH RDW Plt Count Lymph % (Auto) [place] % (Auto) Eos % (Auto) Baso % (Auto) Lymph # Baso # Seg Neutrophils % Lymphocytes % (Manual) Monocytes % (Manual) Nucleated RBC % Seg Neutrophils # Seg Neutrophils # Man Monocytes # (Manual) PT INR Activated Clotting Time POC ABG pH POC ABG pCO2 POC ABG pO2 Sodium Potassium Chloride Carbon Dioxide BUN Creatinine Glucose POC Glucose 164 H 146 H 130 H Calcium Magnesium Direct Bilirubin AST ALT Alkaline Phosphatase Total Creatine Kinase CK-MB (CK-2) CK-MB (CK-2) Rel Index Troponin T C-Reactive Protein Total Protein Albumin Triglycerides Ur Specific [place] Urine WBC (Auto) Miscellaneous Test 04/05/17 04/05/17 04/05/17 04:43 05:28 11:36 WBC RBC Hgb Hct MCV MCH RDW Plt Count Lymph % (Auto) [place] % (Auto) Eos % (Auto) Baso % (Auto) Lymph # Baso # Seg Neutrophils % Lymphocytes % (Manual) Monocytes % (Manual) Nucleated RBC % Seg Neutrophils # Seg Neutrophils # Man Monocytes # (Manual) PT INR Activated Clotting Time POC ABG pH 7.479 H POC ABG pCO2 33.5 L POC ABG pO2 76 L Sodium Potassium Chloride Carbon Dioxide BUN Creatinine Glucose POC Glucose 145 H 136 H Calcium Magnesium Direct Bilirubin AST ALT Alkaline Phosphatase Total Creatine Kinase CK-MB (CK-2) CK-MB (CK-2) Rel Index Troponin T C-Reactive Protein Total Protein Albumin Triglycerides Ur Specific [place] Urine WBC (Auto) Miscellaneous Test 04/05/17 04/06/17 04/06/17 17:58 00:16 05:26 WBC RBC Hgb Hct MCV MCH RDW Plt Count Lymph % (Auto) [place] % (Auto) Eos % (Auto) Baso % (Auto) Lymph # Baso # Seg Neutrophils % Lymphocytes % (Manual) Monocytes % (Manual) Nucleated RBC % Seg Neutrophils # Seg Neutrophils # Man Monocytes # (Manual) PT INR Activated Clotting Time POC ABG pH POC ABG pCO2 POC ABG pO2 Sodium Potassium Chloride Carbon Dioxide BUN Creatinine Glucose POC Glucose 130 H 159 H 146 H Calcium Magnesium Direct Bilirubin AST ALT Alkaline Phosphatase Total Creatine Kinase CK-MB (CK-2) CK-MB (CK-2) Rel Index Troponin T C-Reactive Protein Total Protein Albumin Triglycerides Ur Specific [place] Urine WBC (Auto) Miscellaneous Test 04/06/17 04/06/17 04/07/17 13:11 16:54 11:45 WBC RBC Hgb Hct MCV MCH RDW Plt Count Lymph % (Auto) [place] % (Auto) Eos % (Auto) Baso % (Auto) Lymph # Baso # Seg Neutrophils % Lymphocytes % (Manual) Monocytes % (Manual) Nucleated RBC % Seg Neutrophils # Seg Neutrophils # Man Monocytes # (Manual) PT INR Activated Clotting Time POC ABG pH 7.517 H POC ABG pCO2 32.1 L POC ABG pO2 Sodium Potassium Chloride Carbon Dioxide BUN Creatinine Glucose POC Glucose 132 H 123 H Calcium Magnesium Direct Bilirubin AST ALT Alkaline Phosphatase Total Creatine Kinase CK-MB (CK-2) CK-MB (CK-2) Rel Index Troponin T C-Reactive Protein Total Protein Albumin Triglycerides Ur Specific [place] Urine WBC (Auto) Miscellaneous Test 04/07/17 04/07/17 04/07/17 12:51 17:40 23:55 WBC RBC Hgb Hct MCV MCH RDW Plt Count Lymph % (Auto) [place] % (Auto) Eos % (Auto) Baso % (Auto) Lymph # Baso # Seg Neutrophils % Lymphocytes % (Manual) Monocytes % (Manual) Nucleated RBC % Seg Neutrophils # Seg Neutrophils # Man Monocytes # (Manual) PT INR Activated Clotting Time POC ABG pH POC ABG pCO2 POC ABG pO2 Sodium Potassium Chloride Carbon Dioxide BUN Creatinine Glucose POC Glucose 138 H 154 H 143 H Calcium Magnesium Direct Bilirubin AST ALT Alkaline Phosphatase Total Creatine Kinase CK-MB (CK-2) CK-MB (CK-2) Rel Index Troponin T C-Reactive Protein Total Protein Albumin Triglycerides Ur Specific [place] Urine WBC (Auto) Miscellaneous Test 04/08/17 04/08/17 04/08/17 05:27 11:14 17:44 WBC RBC Hgb Hct MCV MCH RDW Plt Count Lymph % (Auto) [place] % (Auto) Eos % (Auto) Baso % (Auto) Lymph # Baso # Seg Neutrophils % Lymphocytes % (Manual) Monocytes % (Manual) Nucleated RBC % Seg Neutrophils # Seg Neutrophils # Man Monocytes # (Manual) PT INR Activated Clotting Time POC ABG pH POC ABG pCO2 POC ABG pO2 Sodium Potassium Chloride Carbon Dioxide BUN Creatinine Glucose POC Glucose 142 H 153 H 129 H Calcium Magnesium Direct Bilirubin AST ALT Alkaline Phosphatase Total Creatine Kinase CK-MB (CK-2) CK-MB (CK-2) Rel Index Troponin T C-Reactive Protein Total Protein Albumin Triglycerides Ur Specific [place] Urine WBC (Auto) Miscellaneous Test 04/09/17 04/09/17 04/09/17 08:20 11:21 17:37 WBC RBC Hgb Hct MCV MCH RDW Plt Count Lymph % (Auto) [place] % (Auto) Eos % (Auto) Baso % (Auto) Lymph # Baso # Seg Neutrophils % Lymphocytes % (Manual) Monocytes % (Manual) Nucleated RBC % Seg Neutrophils # Seg Neutrophils # Man Monocytes # (Manual) PT INR Activated Clotting Time POC ABG pH POC ABG pCO2 POC ABG pO2 Sodium 147 H Potassium Chloride 108.8 H Carbon Dioxide BUN 39 H Creatinine 0.5 L Glucose 138 H POC Glucose 152 H 109 H Calcium Magnesium Direct Bilirubin AST ALT Alkaline Phosphatase Total Creatine Kinase CK-MB (CK-2) CK-MB (CK-2) Rel Index Troponin T C-Reactive Protein Total Protein Albumin Triglycerides Ur Specific [place] Urine WBC (Auto) Miscellaneous Test 04/10/17 04/10/17 04/10/17 00:13 04:16 04:16 WBC RBC Hgb 11.5 L Hct MCV 96 H MCH RDW Plt Count 103 L Lymph % (Auto) 11.1 L [place] % (Auto) Eos % (Auto) Baso % (Auto) Lymph # Baso # Seg Neutrophils % 81.5 H Lymphocytes % (Manual) Monocytes % (Manual) Nucleated RBC % Seg Neutrophils # 8.8 H Seg Neutrophils # Man Monocytes # (Manual) PT INR Activated Clotting Time POC ABG pH POC ABG pCO2 POC ABG pO2 Sodium 148 H Potassium Chloride 109.0 H Carbon Dioxide BUN 36 H Creatinine 0.5 L Glucose 131 H POC Glucose 127 H Calcium 8.1 L Magnesium 2.40 H Direct Bilirubin AST 206 H ALT 228 H Alkaline Phosphatase 178 H Total Creatine Kinase CK-MB (CK-2) CK-MB (CK-2) Rel Index Troponin T C-Reactive Protein Total Protein Albumin 2.8 L Triglycerides Ur Specific [place] Urine WBC (Auto) Miscellaneous Test 04/10/17 04/10/17 04/10/17 06:01 11:57 18:27 WBC RBC Hgb Hct MCV MCH RDW Plt Count Lymph % (Auto) [place] % (Auto) Eos % (Auto) Baso % (Auto) Lymph # Baso # Seg Neutrophils % Lymphocytes % (Manual) Monocytes % (Manual) Nucleated RBC % Seg Neutrophils # Seg Neutrophils # Man Monocytes # (Manual) PT INR Activated Clotting Time POC ABG pH POC ABG pCO2 POC ABG pO2 Sodium Potassium Chloride Carbon Dioxide BUN Creatinine Glucose POC Glucose 108 H 154 H 130 H Calcium Magnesium Direct Bilirubin AST ALT Alkaline Phosphatase Total Creatine Kinase CK-MB (CK-2) CK-MB (CK-2) Rel Index Troponin T C-Reactive Protein Total Protein Albumin Triglycerides Ur Specific [place] Urine WBC (Auto) Miscellaneous Test 04/11/17 04/11/17 04/12/17 12:25 17:10 00:22 WBC RBC Hgb Hct MCV MCH RDW Plt Count Lymph % (Auto) [place] % (Auto) Eos % (Auto) Baso % (Auto) Lymph # Baso # Seg Neutrophils % Lymphocytes % (Manual) Monocytes % (Manual) Nucleated RBC % Seg Neutrophils # Seg Neutrophils # Man Monocytes # (Manual) PT INR Activated Clotting Time POC ABG pH POC ABG pCO2 POC ABG pO2 Sodium Potassium Chloride Carbon Dioxide BUN Creatinine Glucose POC Glucose 107 H 129 H 128 H Calcium Magnesium Direct Bilirubin AST ALT Alkaline Phosphatase Total Creatine Kinase CK-MB (CK-2) CK-MB (CK-2) Rel Index Troponin T C-Reactive Protein Total Protein Albumin Triglycerides Ur Specific [place] Urine WBC (Auto) Miscellaneous Test 04/12/17 04/12/17 04/12/17 05:00 11:57 17:47 WBC RBC Hgb Hct MCV MCH RDW Plt Count Lymph % (Auto) [place] % (Auto) Eos % (Auto) Baso % (Auto) Lymph # Baso # Seg Neutrophils % Lymphocytes % (Manual) Monocytes % (Manual) Nucleated RBC % Seg Neutrophils # Seg Neutrophils # Man Monocytes # (Manual) PT INR Activated Clotting Time POC ABG pH POC ABG pCO2 POC ABG pO2 Sodium Potassium Chloride Carbon Dioxide BUN Creatinine Glucose POC Glucose 140 H 142 H Calcium Magnesium Direct Bilirubin AST 158 H ALT 184 H Alkaline Phosphatase 170 H Total Creatine Kinase CK-MB (CK-2) CK-MB (CK-2) Rel Index Troponin T C-Reactive Protein Total Protein Albumin 2.8 L Triglycerides Ur Specific [place] Urine WBC (Auto) Miscellaneous Test 04/12/17 04/12/17 04/13/17 21:36 21:36 01:37 WBC RBC Hgb Hct MCV MCH RDW Plt Count Lymph % (Auto) [place] % (Auto) Eos % (Auto) Baso % (Auto) Lymph # Baso # Seg Neutrophils % Lymphocytes % (Manual) Monocytes % (Manual) Nucleated RBC % Seg Neutrophils # Seg Neutrophils # Man Monocytes # (Manual) PT INR Activated Clotting Time POC ABG pH POC ABG pCO2 POC ABG pO2 Sodium Potassium Chloride Carbon Dioxide BUN Creatinine Glucose POC Glucose 126 H Calcium Magnesium Direct Bilirubin AST ALT Alkaline Phosphatase Total Creatine Kinase 1404 H CK-MB (CK-2) 8.0 H CK-MB (CK-2) Rel Index Troponin T 0.767 H* C-Reactive Protein Total Protein Albumin Triglycerides Ur Specific [place] Urine WBC (Auto) Miscellaneous Test 04/13/17 04/13/17 04/13/17 04:45 04:52 12:17 WBC RBC Hgb Hct MCV MCH RDW Plt Count Lymph % (Auto) [place] % (Auto) Eos % (Auto) Baso % (Auto) Lymph # Baso # Seg Neutrophils % Lymphocytes % (Manual) Monocytes % (Manual) Nucleated RBC % Seg Neutrophils # Seg Neutrophils # Man Monocytes # (Manual) PT INR Activated Clotting Time POC ABG pH POC ABG pCO2 POC ABG pO2 Sodium 148 H Potassium Chloride 112.8 H Carbon Dioxide BUN 33 H Creatinine 0.4 L Glucose 121 H POC Glucose 126 H 149 H Calcium Magnesium Direct Bilirubin AST 160 H ALT 189 H Alkaline Phosphatase 166 H Total Creatine Kinase CK-MB (CK-2) CK-MB (CK-2) Rel Index Troponin T C-Reactive Protein Total Protein Albumin 2.6 L Triglycerides Ur Specific [place] Urine WBC (Auto) Miscellaneous Test 04/13/17 04/14/17 04/14/17 17:45 00:20 00:45 WBC RBC Hgb Hct MCV MCH RDW Plt Count Lymph % (Auto) [place] % (Auto) Eos % (Auto) Baso % (Auto) Lymph # Baso # Seg Neutrophils % Lymphocytes % (Manual) Monocytes % (Manual) Nucleated RBC % Seg Neutrophils # Seg Neutrophils # Man Monocytes # (Manual) PT INR Activated Clotting Time POC ABG pH POC ABG pCO2 POC ABG pO2 Sodium Potassium Chloride Carbon Dioxide BUN Creatinine Glucose POC Glucose 130 H 144 H 144 H Calcium Magnesium Direct Bilirubin AST ALT Alkaline Phosphatase Total Creatine Kinase CK-MB (CK-2) CK-MB (CK-2) Rel Index Troponin T C-Reactive Protein Total Protein Albumin Triglycerides Ur Specific [place] Urine WBC (Auto) Miscellaneous Test 04/14/17 04/14/17 04/14/17 05:40 11:06 11:31 WBC RBC Hgb Hct MCV MCH RDW Plt Count Lymph % (Auto) [place] % (Auto) Eos % (Auto) Baso % (Auto) Lymph # Baso # Seg Neutrophils % Lymphocytes % (Manual) Monocytes % (Manual) Nucleated RBC % Seg Neutrophils # Seg Neutrophils # Man Monocytes # (Manual) PT INR Activated Clotting Time POC ABG pH POC ABG pCO2 POC ABG pO2 Sodium Potassium Chloride Carbon Dioxide BUN Creatinine Glucose POC Glucose 139 H 123 H Calcium Magnesium Direct Bilirubin AST ALT Alkaline Phosphatase Total Creatine Kinase CK-MB (CK-2) CK-MB (CK-2) Rel Index Troponin T C-Reactive Protein Total Protein Albumin Triglycerides Ur Specific [place] 1.033 H Urine WBC (Auto) > 182.0 H Miscellaneous Test 04/14/17 04/14/17 04/15/17 18:00 23:52 05:15 WBC 12.5 H RBC 3.38 L Hgb 10.6 L Hct 32.7 L MCV 97 H MCH RDW Plt Count 107 L Lymph % (Auto) 8.7 L [place] % (Auto) Eos % (Auto) Baso % (Auto) Lymph # 1.1 L Baso # Seg Neutrophils % 86.1 H Lymphocytes % (Manual) Monocytes % (Manual) Nucleated RBC % Seg Neutrophils # 10.7 H Seg Neutrophils # Man Monocytes # (Manual) PT INR Activated Clotting Time POC ABG pH POC ABG pCO2 POC ABG pO2 Sodium Potassium Chloride Carbon Dioxide BUN Creatinine Glucose POC Glucose 133 H 133 H Calcium Magnesium Direct Bilirubin AST ALT Alkaline Phosphatase Total Creatine Kinase CK-MB (CK-2) CK-MB (CK-2) Rel Index Troponin T C-Reactive Protein Total Protein Albumin Triglycerides Ur Specific [place] Urine WBC (Auto) Miscellaneous Test 04/15/17 04/15/17 04/15/17 05:15 05:25 11:50 WBC RBC Hgb Hct MCV MCH RDW Plt Count Lymph % (Auto) [place] % (Auto) Eos % (Auto) Baso % (Auto) Lymph # Baso # Seg Neutrophils % Lymphocytes % (Manual) Monocytes % (Manual) Nucleated RBC % Seg Neutrophils # Seg Neutrophils # Man Monocytes # (Manual) PT INR Activated Clotting Time POC ABG pH POC ABG pCO2 POC ABG pO2 Sodium 149 H Potassium 3.5 L Chloride 114.1 H Carbon Dioxide 21 L BUN 29 H Creatinine 0.4 L Glucose 128 H POC Glucose 133 H 107 H Calcium 8.3 L Magnesium Direct Bilirubin 0.4 H AST 149 H ALT 182 H Alkaline Phosphatase 143 H Total Creatine Kinase CK-MB (CK-2) CK-MB (CK-2) Rel Index Troponin T C-Reactive Protein Total Protein Albumin 2.5 L Triglycerides Ur Specific [place] Urine WBC (Auto) Miscellaneous Test 04/15/17 04/16/17 04/16/17 16:55 00:02 03:17 WBC RBC 3.39 L Hgb 10.5 L Hct 32.4 L MCV 96 H MCH RDW Plt Count 106 L Lymph % (Auto) 6.7 L [place] % (Auto) Eos % (Auto) Baso % (Auto) Lymph # 0.6 L Baso # Seg Neutrophils % 86.8 H Lymphocytes % (Manual) Monocytes % (Manual) Nucleated RBC % Seg Neutrophils # 8.2 H Seg Neutrophils # Man Monocytes # (Manual) PT INR Activated Clotting Time POC ABG pH POC ABG pCO2 POC ABG pO2 Sodium Potassium Chloride Carbon Dioxide BUN Creatinine Glucose POC Glucose 146 H 148 H Calcium Magnesium Direct Bilirubin AST ALT Alkaline Phosphatase Total Creatine Kinase CK-MB (CK-2) CK-MB (CK-2) Rel Index Troponin T C-Reactive Protein Total Protein Albumin Triglycerides Ur Specific [place] Urine WBC (Auto) Miscellaneous Test 04/16/17 04/16/17 04/16/17 03:17 05:19 11:13 WBC RBC Hgb Hct MCV MCH RDW Plt Count Lymph % (Auto) [place] % (Auto) Eos % (Auto) Baso % (Auto) Lymph # Baso # Seg Neutrophils % Lymphocytes % (Manual) Monocytes % (Manual) Nucleated RBC % Seg Neutrophils # Seg Neutrophils # Man Monocytes # (Manual) PT INR Activated Clotting Time POC ABG pH POC ABG pCO2 POC ABG pO2 Sodium 149 H Potassium Chloride 111.1 H Carbon Dioxide 20 L BUN 27 H Creatinine 0.3 L Glucose 156 H POC Glucose 171 H 169 H Calcium 8.3 L Magnesium Direct Bilirubin AST ALT Alkaline Phosphatase Total Creatine Kinase CK-MB (CK-2) CK-MB (CK-2) Rel Index Troponin T C-Reactive Protein Total Protein Albumin Triglycerides Ur Specific [place] Urine WBC (Auto) Miscellaneous Test 04/16/17 04/17/17 04/17/17 17:03 00:00 05:09 WBC RBC Hgb Hct MCV MCH RDW Plt Count Lymph % (Auto) [place] % (Auto) Eos % (Auto) Baso % (Auto) Lymph # Baso # Seg Neutrophils % Lymphocytes % (Manual) Monocytes % (Manual) Nucleated RBC % Seg Neutrophils # Seg Neutrophils # Man Monocytes # (Manual) PT INR Activated Clotting Time POC ABG pH POC ABG pCO2 POC ABG pO2 Sodium Potassium Chloride Carbon Dioxide BUN Creatinine Glucose POC Glucose 151 H 165 H 145 H Calcium Magnesium Direct Bilirubin AST ALT Alkaline Phosphatase Total Creatine Kinase CK-MB (CK-2) CK-MB (CK-2) Rel Index Troponin T C-Reactive Protein Total Protein Albumin Triglycerides Ur Specific [place] Urine WBC (Auto) Miscellaneous Test 04/17/17 04/17/17 04/18/17 11:38 17:47 00:01 WBC RBC Hgb Hct MCV MCH RDW Plt Count Lymph % (Auto) [place] % (Auto) Eos % (Auto) Baso % (Auto) Lymph # Baso # Seg Neutrophils % Lymphocytes % (Manual) Monocytes % (Manual) Nucleated RBC % Seg Neutrophils # Seg Neutrophils # Man Monocytes # (Manual) PT INR Activated Clotting Time POC ABG pH POC ABG pCO2 POC ABG pO2 Sodium Potassium Chloride Carbon Dioxide BUN Creatinine Glucose POC Glucose 170 H 161 H 131 H Calcium Magnesium Direct Bilirubin AST ALT Alkaline Phosphatase Total Creatine Kinase CK-MB (CK-2) CK-MB (CK-2) Rel Index Troponin T C-Reactive Protein Total Protein Albumin Triglycerides Ur Specific [place] Urine WBC (Auto) Miscellaneous Test 04/18/17 04/18/17 04/18/17 03:55 03:55 05:30 WBC RBC 3.05 L Hgb 9.8 L Hct 29.0 L MCV 95 H MCH RDW Plt Count 113 L Lymph % (Auto) [place] % (Auto) Eos % (Auto) 5.3 H Baso % (Auto) Lymph # Baso # Seg Neutrophils % 71.5 H Lymphocytes % (Manual) Monocytes % (Manual) Nucleated RBC % Seg Neutrophils # Seg Neutrophils # Man Monocytes # (Manual) PT INR Activated Clotting Time POC ABG pH 7.460 H POC ABG pCO2 30.8 L POC ABG pO2 129 H Sodium Potassium Chloride Carbon Dioxide 21 L BUN 25 H Creatinine 0.4 L Glucose 123 H POC Glucose Calcium 8.3 L Magnesium Direct Bilirubin AST ALT Alkaline Phosphatase Total Creatine Kinase CK-MB (CK-2) CK-MB (CK-2) Rel Index Troponin T C-Reactive Protein Total Protein Albumin Triglycerides Ur Specific [place] Urine WBC (Auto) Miscellaneous Test 04/18/17 04/18/17 04/19/17 17:10 23:40 04:36 WBC RBC 3.21 L Hgb 10.2 L Hct 30.4 L MCV 95 H MCH RDW Plt Count 131 L Lymph % (Auto) 12.1 L [place] % (Auto) Eos % (Auto) 4.7 H Baso % (Auto) 2.4 H Lymph # 0.9 L Baso # 0.2 H Seg Neutrophils % 75.0 H Lymphocytes % (Manual) Monocytes % (Manual) Nucleated RBC % Seg Neutrophils # Seg Neutrophils # Man Monocytes # (Manual) PT INR Activated Clotting Time POC ABG pH POC ABG pCO2 POC ABG pO2 Sodium Potassium Chloride Carbon Dioxide BUN Creatinine Glucose POC Glucose 135 H 157 H Calcium Magnesium Direct Bilirubin AST ALT Alkaline Phosphatase Total Creatine Kinase CK-MB (CK-2) CK-MB (CK-2) Rel Index Troponin T C-Reactive Protein Total Protein Albumin Triglycerides Ur Specific [place] Urine WBC (Auto) Miscellaneous Test 04/19/17 04/19/17 04/19/17 04:36 05:12 06:50 WBC RBC Hgb Hct MCV MCH RDW Plt Count Lymph % (Auto) [place] % (Auto) Eos % (Auto) Baso % (Auto) Lymph # Baso # Seg Neutrophils % Lymphocytes % (Manual) Monocytes % (Manual) Nucleated RBC % Seg Neutrophils # Seg Neutrophils # Man Monocytes # (Manual) PT INR Activated Clotting Time POC ABG pH 7.516 H POC ABG pCO2 28.0 L POC ABG pO2 Sodium Potassium Chloride Carbon Dioxide 21 L BUN 23 H Creatinine 0.2 L Glucose 137 H POC Glucose 131 H Calcium 7.9 L Magnesium Direct Bilirubin AST ALT Alkaline Phosphatase Total Creatine Kinase CK-MB (CK-2) CK-MB (CK-2) Rel Index Troponin T C-Reactive Protein Total Protein Albumin Triglycerides Ur Specific [place] Urine WBC (Auto) Miscellaneous Test 04/19/17 04/19/17 04/20/17 12:36 17:42 00:12 WBC RBC Hgb Hct MCV MCH RDW Plt Count Lymph % (Auto) [place] % (Auto) Eos % (Auto) Baso % (Auto) Lymph # Baso # Seg Neutrophils % Lymphocytes % (Manual) Monocytes % (Manual) Nucleated RBC % Seg Neutrophils # Seg Neutrophils # Man Monocytes # (Manual) PT INR Activated Clotting Time POC ABG pH POC ABG pCO2 POC ABG pO2 Sodium Potassium Chloride Carbon Dioxide BUN Creatinine Glucose POC Glucose 128 H 140 H 132 H Calcium Magnesium Direct Bilirubin AST ALT Alkaline Phosphatase Total Creatine Kinase CK-MB (CK-2) CK-MB (CK-2) Rel Index Troponin T C-Reactive Protein Total Protein Albumin Triglycerides Ur Specific [place] Urine WBC (Auto) Miscellaneous Test 04/20/17 04/20/17 04/20/17 03:35 03:35 05:10 WBC RBC 3.34 L Hgb 10.4 L Hct 31.6 L MCV 95 H MCH RDW Plt Count Lymph % (Auto) 12.9 L [place] % (Auto) Eos % (Auto) Baso % (Auto) Lymph # Baso # Seg Neutrophils % 77.3 H Lymphocytes % (Manual) Monocytes % (Manual) Nucleated RBC % Seg Neutrophils # Seg Neutrophils # Man Monocytes # (Manual) PT INR Activated Clotting Time POC ABG pH POC ABG pCO2 POC ABG pO2 Sodium Potassium Chloride Carbon Dioxide BUN Creatinine 0.3 L Glucose 155 H POC Glucose 135 H Calcium 7.8 L Magnesium Direct Bilirubin AST ALT Alkaline Phosphatase Total Creatine Kinase CK-MB (CK-2) CK-MB (CK-2) Rel Index Troponin T C-Reactive Protein Total Protein Albumin Triglycerides Ur Specific [place] Urine WBC (Auto) Miscellaneous Test 04/20/17 04/20/17 04/21/17 12:49 18:21 00:05 WBC RBC Hgb Hct MCV MCH RDW Plt Count Lymph % (Auto) [place] % (Auto) Eos % (Auto) Baso % (Auto) Lymph # Baso # Seg Neutrophils % Lymphocytes % (Manual) Monocytes % (Manual) Nucleated RBC % Seg Neutrophils # Seg Neutrophils # Man Monocytes # (Manual) PT INR Activated Clotting Time POC ABG pH POC ABG pCO2 POC ABG pO2 Sodium Potassium Chloride Carbon Dioxide BUN Creatinine Glucose POC Glucose 155 H 165 H 141 H Calcium Magnesium Direct Bilirubin AST ALT Alkaline Phosphatase Total Creatine Kinase CK-MB (CK-2) CK-MB (CK-2) Rel Index Troponin T C-Reactive Protein Total Protein Albumin Triglycerides Ur Specific [place] Urine WBC (Auto) Miscellaneous Test 04/21/17 04/21/17 04/21/17 06:00 12:11 17:04 WBC RBC Hgb Hct MCV MCH RDW Plt Count Lymph % (Auto) [place] % (Auto) Eos % (Auto) Baso % (Auto) Lymph # Baso # Seg Neutrophils % Lymphocytes % (Manual) Monocytes % (Manual) Nucleated RBC % Seg Neutrophils # Seg Neutrophils # Man Monocytes # (Manual) PT INR Activated Clotting Time POC ABG pH POC ABG pCO2 POC ABG pO2 Sodium Potassium Chloride Carbon Dioxide BUN Creatinine Glucose POC Glucose 152 H 165 H 156 H Calcium Magnesium Direct Bilirubin AST ALT Alkaline Phosphatase Total Creatine Kinase CK-MB (CK-2) CK-MB (CK-2) Rel Index Troponin T C-Reactive Protein Total Protein Albumin Triglycerides Ur Specific [place] Urine WBC (Auto) Miscellaneous Test 04/21/17 04/21/17 04/22/17 22:00 23:59 05:49 WBC RBC Hgb Hct MCV MCH RDW Plt Count Lymph % (Auto) [place] % (Auto) Eos % (Auto) Baso % (Auto) Lymph # Baso # Seg Neutrophils % Lymphocytes % (Manual) Monocytes % (Manual) Nucleated RBC % Seg Neutrophils # Seg Neutrophils # Man Monocytes # (Manual) PT INR Activated Clotting Time POC ABG pH POC ABG pCO2 POC ABG pO2 Sodium Potassium Chloride Carbon Dioxide BUN Creatinine Glucose POC Glucose 166 H 173 H Calcium Magnesium Direct Bilirubin AST ALT Alkaline Phosphatase Total Creatine Kinase CK-MB (CK-2) CK-MB (CK-2) Rel Index Troponin T C-Reactive Protein Total Protein Albumin Triglycerides Ur Specific [place] Urine WBC (Auto) 10.0 H Miscellaneous Test 04/22/17 04/22/17 04/23/17 11:11 18:04 00:37 WBC RBC Hgb Hct MCV MCH RDW Plt Count Lymph % (Auto) [place] % (Auto) Eos % (Auto) Baso % (Auto) Lymph # Baso # Seg Neutrophils % Lymphocytes % (Manual) Monocytes % (Manual) Nucleated RBC % Seg Neutrophils # Seg Neutrophils # Man Monocytes # (Manual) PT INR Activated Clotting Time POC ABG pH POC ABG pCO2 POC ABG pO2 Sodium Potassium Chloride Carbon Dioxide BUN Creatinine Glucose POC Glucose 172 H 140 H 135 H Calcium Magnesium Direct Bilirubin AST ALT Alkaline Phosphatase Total Creatine Kinase CK-MB (CK-2) CK-MB (CK-2) Rel Index Troponin T C-Reactive Protein Total Protein Albumin Triglycerides Ur Specific [place] Urine WBC (Auto) Miscellaneous Test 04/23/17 04/23/17 04/23/17 05:33 06:20 11:10 WBC RBC 3.19 L Hgb 9.9 L Hct 30.0 L MCV MCH RDW Plt Count Lymph % (Auto) 8.0 L [place] % (Auto) Eos % (Auto) Baso % (Auto) Lymph # 0.8 L Baso # Seg Neutrophils % 84.5 H Lymphocytes % (Manual) Monocytes % (Manual) Nucleated RBC % Seg Neutrophils # 8.2 H Seg Neutrophils # Man Monocytes # (Manual) PT INR Activated Clotting Time POC ABG pH POC ABG pCO2 POC ABG pO2 Sodium Potassium Chloride Carbon Dioxide BUN Creatinine Glucose POC Glucose 134 H 134 H Calcium Magnesium Direct Bilirubin AST ALT Alkaline Phosphatase Total Creatine Kinase CK-MB (CK-2) CK-MB (CK-2) Rel Index Troponin T C-Reactive Protein Total Protein Albumin Triglycerides Ur Specific [place] Urine WBC (Auto) Miscellaneous Test 04/23/17 04/24/17 04/24/17 17:26 00:53 06:46 WBC RBC Hgb Hct MCV MCH RDW Plt Count Lymph % (Auto) [place] % (Auto) Eos % (Auto) Baso % (Auto) Lymph # Baso # Seg Neutrophils % Lymphocytes % (Manual) Monocytes % (Manual) Nucleated RBC % Seg Neutrophils # Seg Neutrophils # Man Monocytes # (Manual) PT INR Activated Clotting Time POC ABG pH POC ABG pCO2 POC ABG pO2 Sodium Potassium Chloride Carbon Dioxide BUN Creatinine Glucose POC Glucose 164 H 146 H 125 H Calcium Magnesium Direct Bilirubin AST ALT Alkaline Phosphatase Total Creatine Kinase CK-MB (CK-2) CK-MB (CK-2) Rel Index Troponin T C-Reactive Protein Total Protein Albumin Triglycerides Ur Specific [place] Urine WBC (Auto) Miscellaneous Test 04/24/17 04/24/17 04/24/17 11:55 17:50 23:36 WBC RBC Hgb Hct MCV MCH RDW Plt Count Lymph % (Auto) [place] % (Auto) Eos % (Auto) Baso % (Auto) Lymph # Baso # Seg Neutrophils % Lymphocytes % (Manual) Monocytes % (Manual) Nucleated RBC % Seg Neutrophils # Seg Neutrophils # Man Monocytes # (Manual) PT INR Activated Clotting Time POC ABG pH POC ABG pCO2 POC ABG pO2 Sodium Potassium Chloride Carbon Dioxide BUN Creatinine Glucose POC Glucose 156 H 146 H 131 H Calcium Magnesium Direct Bilirubin AST ALT Alkaline Phosphatase Total Creatine Kinase CK-MB (CK-2) CK-MB (CK-2) Rel Index Troponin T C-Reactive Protein Total Protein Albumin Triglycerides Ur Specific [place] Urine WBC (Auto) Miscellaneous Test 04/25/17 04/25/17 04/25/17 04:51 05:16 07:07 WBC RBC Hgb Hct MCV MCH RDW Plt Count Lymph % (Auto) [place] % (Auto) Eos % (Auto) Baso % (Auto) Lymph # Baso # Seg Neutrophils % Lymphocytes % (Manual) Monocytes % (Manual) Nucleated RBC % Seg Neutrophils # Seg Neutrophils # Man Monocytes # (Manual) PT INR Activated Clotting Time POC ABG pH POC ABG pCO2 POC ABG pO2 Sodium Potassium Chloride Carbon Dioxide BUN Creatinine Glucose POC Glucose 139 H Calcium Magnesium Direct Bilirubin AST 105 H ALT 204 H Alkaline Phosphatase 189 H Total Creatine Kinase CK-MB (CK-2) CK-MB (CK-2) Rel Index Troponin T C-Reactive Protein Total Protein Albumin 2.4 L Triglycerides Ur Specific [place] Urine WBC (Auto) Miscellaneous Test Flexitest 1 H 04/25/17 04/25/17 04/25/17 12:29 17:23 23:32 WBC RBC Hgb Hct MCV MCH RDW Plt Count Lymph % (Auto) [place] % (Auto) Eos % (Auto) Baso % (Auto) Lymph # Baso # Seg Neutrophils % Lymphocytes % (Manual) Monocytes % (Manual) Nucleated RBC % Seg Neutrophils # Seg Neutrophils # Man Monocytes # (Manual) PT INR Activated Clotting Time POC ABG pH POC ABG pCO2 POC ABG pO2 Sodium Potassium Chloride Carbon Dioxide BUN Creatinine Glucose POC Glucose 132 H 133 H 128 H Calcium Magnesium Direct Bilirubin AST ALT Alkaline Phosphatase Total Creatine Kinase CK-MB (CK-2) CK-MB (CK-2) Rel Index Troponin T C-Reactive Protein Total Protein Albumin Triglycerides Ur Specific [place] Urine WBC (Auto) Miscellaneous Test 04/26/17 04/26/17 04/26/17 05:24 11:28 17:09 WBC RBC Hgb Hct MCV MCH RDW Plt Count Lymph % (Auto) [place] % (Auto) Eos % (Auto) Baso % (Auto) Lymph # Baso # Seg Neutrophils % Lymphocytes % (Manual) Monocytes % (Manual) Nucleated RBC % Seg Neutrophils # Seg Neutrophils # Man Monocytes # (Manual) PT INR Activated Clotting Time POC ABG pH POC ABG pCO2 POC ABG pO2 Sodium Potassium Chloride Carbon Dioxide BUN Creatinine Glucose POC Glucose 132 H 146 H 141 H Calcium Magnesium Direct Bilirubin AST ALT Alkaline Phosphatase Total Creatine Kinase CK-MB (CK-2) CK-MB (CK-2) Rel Index Troponin T C-Reactive Protein Total Protein Albumin Triglycerides Ur Specific [place] Urine WBC (Auto) Miscellaneous Test 04/26/17 04/27/17 04/27/17 23:52 05:40 05:40 WBC RBC 3.22 L Hgb 10.0 L Hct 29.9 L MCV MCH RDW Plt Count Lymph % (Auto) [place] % (Auto) Eos % (Auto) Baso % (Auto) Lymph # Baso # Seg Neutrophils % 76.6 H Lymphocytes % (Manual) Monocytes % (Manual) Nucleated RBC % Seg Neutrophils # Seg Neutrophils # Man Monocytes # (Manual) PT INR Activated Clotting Time POC ABG pH POC ABG pCO2 POC ABG pO2 Sodium Potassium Chloride Carbon Dioxide BUN Creatinine Glucose POC Glucose 140 H Calcium Magnesium Direct Bilirubin AST 66 H ALT 137 H Alkaline Phosphatase 169 H Total Creatine Kinase CK-MB (CK-2) CK-MB (CK-2) Rel Index Troponin T C-Reactive Protein Total Protein 6.2 L Albumin 2.6 L Triglycerides Ur Specific [place] Urine WBC (Auto) Miscellaneous Test 04/27/17 04/27/17 04/27/17 05:40 06:10 11:13 WBC RBC Hgb Hct MCV MCH RDW Plt Count Lymph % (Auto) [place] % (Auto) Eos % (Auto) Baso % (Auto) Lymph # Baso # Seg Neutrophils % Lymphocytes % (Manual) Monocytes % (Manual) Nucleated RBC % Seg Neutrophils # Seg Neutrophils # Man Monocytes # (Manual) PT INR Activated Clotting Time POC ABG pH POC ABG pCO2 POC ABG pO2 Sodium Potassium Chloride Carbon Dioxide BUN Creatinine 0.2 L Glucose 139 H POC Glucose 130 H 151 H Calcium Magnesium Direct Bilirubin AST ALT Alkaline Phosphatase Total Creatine Kinase CK-MB (CK-2) CK-MB (CK-2) Rel Index Troponin T C-Reactive Protein Total Protein Albumin Triglycerides Ur Specific [place] Urine WBC (Auto) Miscellaneous Test 04/27/17 04/27/17 04/28/17 17:37 23:19 05:24 WBC RBC Hgb Hct MCV MCH RDW Plt Count Lymph % (Auto) [place] % (Auto) Eos % (Auto) Baso % (Auto) Lymph # Baso # Seg Neutrophils % Lymphocytes % (Manual) Monocytes % (Manual) Nucleated RBC % Seg Neutrophils # Seg Neutrophils # Man Monocytes # (Manual) PT INR Activated Clotting Time POC ABG pH POC ABG pCO2 POC ABG pO2 Sodium Potassium Chloride Carbon Dioxide BUN Creatinine Glucose POC Glucose 159 H 130 H 132 H Calcium Magnesium Direct Bilirubin AST ALT Alkaline Phosphatase Total Creatine Kinase CK-MB (CK-2) CK-MB (CK-2) Rel Index Troponin T C-Reactive Protein Total Protein Albumin Triglycerides Ur Specific [place] Urine WBC (Auto) Miscellaneous Test 04/28/17 04/28/17 04/28/17 11:15 17:38 23:23 WBC RBC Hgb Hct MCV MCH RDW Plt Count Lymph % (Auto) [place] % (Auto) Eos % (Auto) Baso % (Auto) Lymph # Baso # Seg Neutrophils % Lymphocytes % (Manual) Monocytes % (Manual) Nucleated RBC % Seg Neutrophils # Seg Neutrophils # Man Monocytes # (Manual) PT INR Activated Clotting Time POC ABG pH POC ABG pCO2 POC ABG pO2 Sodium Potassium Chloride Carbon Dioxide BUN Creatinine Glucose POC Glucose 162 H 133 H 138 H Calcium Magnesium Direct Bilirubin AST ALT Alkaline Phosphatase Total Creatine Kinase CK-MB (CK-2) CK-MB (CK-2) Rel Index Troponin T C-Reactive Protein Total Protein Albumin Triglycerides Ur Specific [place] Urine WBC (Auto) Miscellaneous Test 04/29/17 04/29/17 04/29/17 05:15 12:55 17:21 WBC RBC Hgb Hct MCV MCH RDW Plt Count Lymph % (Auto) [place] % (Auto) Eos % (Auto) Baso % (Auto) Lymph # Baso # Seg Neutrophils % Lymphocytes % (Manual) Monocytes % (Manual) Nucleated RBC % Seg Neutrophils # Seg Neutrophils # Man Monocytes # (Manual) PT INR Activated Clotting Time POC ABG pH POC ABG pCO2 POC ABG pO2 Sodium Potassium Chloride Carbon Dioxide BUN Creatinine Glucose POC Glucose 135 H 127 H 138 H Calcium Magnesium Direct Bilirubin AST ALT Alkaline Phosphatase Total Creatine Kinase CK-MB (CK-2) CK-MB (CK-2) Rel Index Troponin T C-Reactive Protein Total Protein Albumin Triglycerides Ur Specific [place] Urine WBC (Auto) Miscellaneous Test 04/29/17 04/30/17 04/30/17 23:52 04:55 12:22 WBC RBC Hgb Hct MCV MCH RDW Plt Count Lymph % (Auto) [place] % (Auto) Eos % (Auto) Baso % (Auto) Lymph # Baso # Seg Neutrophils % Lymphocytes % (Manual) Monocytes % (Manual) Nucleated RBC % Seg Neutrophils # Seg Neutrophils # Man Monocytes # (Manual) PT INR Activated Clotting Time POC ABG pH POC ABG pCO2 POC ABG pO2 Sodium Potassium Chloride Carbon Dioxide BUN Creatinine Glucose POC Glucose 142 H 146 H 132 H Calcium Magnesium Direct Bilirubin AST ALT Alkaline Phosphatase Total Creatine Kinase CK-MB (CK-2) CK-MB (CK-2) Rel Index Troponin T C-Reactive Protein Total Protein Albumin Triglycerides Ur Specific [place] Urine WBC (Auto) Miscellaneous Test 04/30/17 04/30/17 04/30/17 14:25 17:47 18:20 WBC RBC Hgb Hct MCV MCH RDW Plt Count Lymph % (Auto) [place] % (Auto) Eos % (Auto) Baso % (Auto) Lymph # Baso # Seg Neutrophils % Lymphocytes % (Manual) Monocytes % (Manual) Nucleated RBC % Seg Neutrophils # Seg Neutrophils # Man Monocytes # (Manual) PT INR Activated Clotting Time POC ABG pH 7.551 H POC ABG pCO2 32.7 L POC ABG pO2 Sodium Potassium Chloride Carbon Dioxide BUN 21 H Creatinine 0.2 L Glucose 141 H POC Glucose 139 H Calcium Magnesium Direct Bilirubin AST ALT Alkaline Phosphatase Total Creatine Kinase CK-MB (CK-2) CK-MB (CK-2) Rel Index Troponin T C-Reactive Protein Total Protein Albumin Triglycerides Ur Specific [place] Urine WBC (Auto) Miscellaneous Test 05/01/17 05/01/17 05/01/17 01:26 05:30 05:30 WBC RBC 3.49 L Hgb 10.3 L Hct 31.9 L MCV MCH RDW Plt Count Lymph % (Auto) [place] % (Auto) 8.1 H Eos % (Auto) Baso % (Auto) Lymph # Baso # Seg Neutrophils % 71.3 H Lymphocytes % (Manual) Monocytes % (Manual) Nucleated RBC % Seg Neutrophils # Seg Neutrophils # Man Monocytes # (Manual) PT INR Activated Clotting Time POC ABG pH POC ABG pCO2 POC ABG pO2 Sodium 136 L Potassium Chloride 97.6 L Carbon Dioxide BUN Creatinine 0.2 L Glucose 123 H POC Glucose 116 H Calcium Magnesium Direct Bilirubin AST 71 H ALT 125 H Alkaline Phosphatase 158 H Total Creatine Kinase CK-MB (CK-2) CK-MB (CK-2) Rel Index Troponin T C-Reactive Protein Total Protein Albumin 2.6 L Triglycerides Ur Specific [place] Urine WBC (Auto) Miscellaneous Test 05/01/17 05/01/17 05/02/17 11:59 17:23 00:08 WBC RBC Hgb Hct MCV MCH RDW Plt Count Lymph % (Auto) [place] % (Auto) Eos % (Auto) Baso % (Auto) Lymph # Baso # Seg Neutrophils % Lymphocytes % (Manual) Monocytes % (Manual) Nucleated RBC % Seg Neutrophils # Seg Neutrophils # Man Monocytes # (Manual) PT INR Activated Clotting Time POC ABG pH POC ABG pCO2 POC ABG pO2 Sodium Potassium Chloride Carbon Dioxide BUN Creatinine Glucose POC Glucose 118 H 144 H 122 H Calcium Magnesium Direct Bilirubin AST ALT Alkaline Phosphatase Total Creatine Kinase CK-MB (CK-2) CK-MB (CK-2) Rel Index Troponin T C-Reactive Protein Total Protein Albumin Triglycerides Ur Specific [place] Urine WBC (Auto) Miscellaneous Test 05/02/17 05/02/17 05/02/17 05:50 11:21 17:48 WBC RBC Hgb Hct MCV MCH RDW Plt Count Lymph % (Auto) [place] % (Auto) Eos % (Auto) Baso % (Auto) Lymph # Baso # Seg Neutrophils % Lymphocytes % (Manual) Monocytes % (Manual) Nucleated RBC % Seg Neutrophils # Seg Neutrophils # Man Monocytes # (Manual) PT INR Activated Clotting Time POC ABG pH POC ABG pCO2 POC ABG pO2 Sodium Potassium Chloride Carbon Dioxide BUN Creatinine Glucose POC Glucose 120 H 121 H 140 H Calcium Magnesium Direct Bilirubin AST ALT Alkaline Phosphatase Total Creatine Kinase CK-MB (CK-2) CK-MB (CK-2) Rel Index Troponin T C-Reactive Protein Total Protein Albumin Triglycerides Ur Specific [place] Urine WBC (Auto) Miscellaneous Test 05/02/17 05/03/17 05/03/17 23:12 05:35 11:52 WBC RBC Hgb Hct MCV MCH RDW Plt Count Lymph % (Auto) [place] % (Auto) Eos % (Auto) Baso % (Auto) Lymph # Baso # Seg Neutrophils % Lymphocytes % (Manual) Monocytes % (Manual) Nucleated RBC % Seg Neutrophils # Seg Neutrophils # Man Monocytes # (Manual) PT INR Activated Clotting Time POC ABG pH POC ABG pCO2 POC ABG pO2 Sodium Potassium Chloride Carbon Dioxide BUN Creatinine Glucose POC Glucose 128 H 113 H 126 H Calcium Magnesium Direct Bilirubin AST ALT Alkaline Phosphatase Total Creatine Kinase CK-MB (CK-2) CK-MB (CK-2) Rel Index Troponin T C-Reactive Protein Total Protein Albumin Triglycerides Ur Specific [place] Urine WBC (Auto) Miscellaneous Test 05/03/17 05/03/17 05/04/17 17:29 23:26 04:55 WBC RBC Hgb Hct MCV MCH RDW Plt Count Lymph % (Auto) [place] % (Auto) Eos % (Auto) Baso % (Auto) Lymph # Baso # Seg Neutrophils % Lymphocytes % (Manual) Monocytes % (Manual) Nucleated RBC % Seg Neutrophils # Seg Neutrophils # Man Monocytes # (Manual) PT INR Activated Clotting Time POC ABG pH POC ABG pCO2 POC ABG pO2 Sodium Potassium Chloride Carbon Dioxide BUN Creatinine Glucose POC Glucose 141 H 129 H 126 H Calcium Magnesium Direct Bilirubin AST ALT Alkaline Phosphatase Total Creatine Kinase CK-MB (CK-2) CK-MB (CK-2) Rel Index Troponin T C-Reactive Protein Total Protein Albumin Triglycerides Ur Specific [place] Urine WBC (Auto) Miscellaneous Test 05/04/17 05/04/17 05/05/17 12:09 17:46 00:06 WBC RBC Hgb Hct MCV MCH RDW Plt Count Lymph % (Auto) [place] % (Auto) Eos % (Auto) Baso % (Auto) Lymph # Baso # Seg Neutrophils % Lymphocytes % (Manual) Monocytes % (Manual) Nucleated RBC % Seg Neutrophils # Seg Neutrophils # Man Monocytes # (Manual) PT INR Activated Clotting Time POC ABG pH POC ABG pCO2 POC ABG pO2 Sodium Potassium Chloride Carbon Dioxide BUN Creatinine Glucose POC Glucose 125 H 125 H 110 H Calcium Magnesium Direct Bilirubin AST ALT Alkaline Phosphatase Total Creatine Kinase CK-MB (CK-2) CK-MB (CK-2) Rel Index Troponin T C-Reactive Protein Total Protein Albumin Triglycerides Ur Specific [place] Urine WBC (Auto) Miscellaneous Test 05/05/17 05/05/17 05/05/17 05:48 11:41 16:19 WBC RBC Hgb Hct MCV MCH RDW Plt Count Lymph % (Auto) [place] % (Auto) Eos % (Auto) Baso % (Auto) Lymph # Baso # Seg Neutrophils % Lymphocytes % (Manual) Monocytes % (Manual) Nucleated RBC % Seg Neutrophils # Seg Neutrophils # Man Monocytes # (Manual) PT INR Activated Clotting Time POC ABG pH POC ABG pCO2 POC ABG pO2 Sodium Potassium Chloride Carbon Dioxide BUN Creatinine Glucose POC Glucose 124 H 122 H 120 H Calcium Magnesium Direct Bilirubin AST ALT Alkaline Phosphatase Total Creatine Kinase CK-MB (CK-2) CK-MB (CK-2) Rel Index Troponin T C-Reactive Protein Total Protein Albumin Triglycerides Ur Specific [place] Urine WBC (Auto) Miscellaneous Test 05/06/17 05/06/17 05/06/17 00:16 05:47 11:42 WBC RBC Hgb Hct MCV MCH RDW Plt Count Lymph % (Auto) [place] % (Auto) Eos % (Auto) Baso % (Auto) Lymph # Baso # Seg Neutrophils % Lymphocytes % (Manual) Monocytes % (Manual) Nucleated RBC % Seg Neutrophils # Seg Neutrophils # Man Monocytes # (Manual) PT INR Activated Clotting Time POC ABG pH POC ABG pCO2 POC ABG pO2 Sodium Potassium Chloride Carbon Dioxide BUN Creatinine Glucose POC Glucose 110 H 142 H 120 H Calcium Magnesium Direct Bilirubin AST ALT Alkaline Phosphatase Total Creatine Kinase CK-MB (CK-2) CK-MB (CK-2) Rel Index Troponin T C-Reactive Protein Total Protein Albumin Triglycerides Ur Specific [place] Urine WBC (Auto) Miscellaneous Test 05/06/17 05/07/17 05/07/17 17:46 00:07 05:28 WBC RBC Hgb Hct MCV MCH RDW Plt Count Lymph % (Auto) [place] % (Auto) Eos % (Auto) Baso % (Auto) Lymph # Baso # Seg Neutrophils % Lymphocytes % (Manual) Monocytes % (Manual) Nucleated RBC % Seg Neutrophils # Seg Neutrophils # Man Monocytes # (Manual) PT INR Activated Clotting Time POC ABG pH POC ABG pCO2 POC ABG pO2 Sodium Potassium Chloride Carbon Dioxide BUN Creatinine Glucose POC Glucose 127 H 145 H 124 H Calcium Magnesium Direct Bilirubin AST ALT Alkaline Phosphatase Total Creatine Kinase CK-MB (CK-2) CK-MB (CK-2) Rel Index Troponin T C-Reactive Protein Total Protein Albumin Triglycerides Ur Specific [place] Urine WBC (Auto) Miscellaneous Test 05/07/17 05/07/17 05/08/17 11:17 17:14 00:03 WBC RBC Hgb Hct MCV MCH RDW Plt Count Lymph % (Auto) [place] % (Auto) Eos % (Auto) Baso % (Auto) Lymph # Baso # Seg Neutrophils % Lymphocytes % (Manual) Monocytes % (Manual) Nucleated RBC % Seg Neutrophils # Seg Neutrophils # Man Monocytes # (Manual) PT INR Activated Clotting Time POC ABG pH POC ABG pCO2 POC ABG pO2 Sodium Potassium Chloride Carbon Dioxide BUN Creatinine Glucose POC Glucose 144 H 125 H 122 H Calcium Magnesium Direct Bilirubin AST ALT Alkaline Phosphatase Total Creatine Kinase CK-MB (CK-2) CK-MB (CK-2) Rel Index Troponin T C-Reactive Protein Total Protein Albumin Triglycerides Ur Specific [place] Urine WBC (Auto) Miscellaneous Test 05/08/17 05/08/17 05/08/17 05:43 12:07 18:02 WBC RBC Hgb Hct MCV MCH RDW Plt Count Lymph % (Auto) [place] % (Auto) Eos % (Auto) Baso % (Auto) Lymph # Baso # Seg Neutrophils % Lymphocytes % (Manual) Monocytes % (Manual) Nucleated RBC % Seg Neutrophils # Seg Neutrophils # Man Monocytes # (Manual) PT INR Activated Clotting Time POC ABG pH POC ABG pCO2 POC ABG pO2 Sodium Potassium Chloride Carbon Dioxide BUN Creatinine Glucose POC Glucose 117 H 114 H 129 H Calcium Magnesium Direct Bilirubin AST ALT Alkaline Phosphatase Total Creatine Kinase CK-MB (CK-2) CK-MB (CK-2) Rel Index Troponin T C-Reactive Protein Total Protein Albumin Triglycerides Ur Specific [place] Urine WBC (Auto) Miscellaneous Test 05/08/17 05/09/17 05/09/17 23:53 04:19 05:14 WBC RBC Hgb Hct MCV MCH RDW Plt Count Lymph % (Auto) [place] % (Auto) Eos % (Auto) Baso % (Auto) Lymph # Baso # Seg Neutrophils % Lymphocytes % (Manual) Monocytes % (Manual) Nucleated RBC % Seg Neutrophils # Seg Neutrophils # Man Monocytes # (Manual) PT INR Activated Clotting Time POC ABG pH 7.524 H POC ABG pCO2 34.7 L POC ABG pO2 107 H Sodium Potassium Chloride Carbon Dioxide BUN Creatinine Glucose POC Glucose 125 H 118 H Calcium Magnesium Direct Bilirubin AST ALT Alkaline Phosphatase Total Creatine Kinase CK-MB (CK-2) CK-MB (CK-2) Rel Index Troponin T C-Reactive Protein Total Protein Albumin Triglycerides Ur Specific [place] Urine WBC (Auto) Miscellaneous Test 05/10/17 05/11/17 05/11/17 23:54 05:48 23:50 WBC RBC Hgb Hct MCV MCH RDW Plt Count Lymph % (Auto) [place] % (Auto) Eos % (Auto) Baso % (Auto) Lymph # Baso # Seg Neutrophils % Lymphocytes % (Manual) Monocytes % (Manual) Nucleated RBC % Seg Neutrophils # Seg Neutrophils # Man Monocytes # (Manual) PT INR Activated Clotting Time POC ABG pH POC ABG pCO2 POC ABG pO2 Sodium Potassium Chloride Carbon Dioxide BUN Creatinine Glucose POC Glucose 126 H 137 H 130 H Calcium Magnesium Direct Bilirubin AST ALT Alkaline Phosphatase Total Creatine Kinase CK-MB (CK-2) CK-MB (CK-2) Rel Index Troponin T C-Reactive Protein Total Protein Albumin Triglycerides Ur Specific [place] Urine WBC (Auto) Miscellaneous Test 05/12/17 05/12/17 05/12/17 05:48 11:33 18:00 WBC RBC Hgb Hct MCV MCH RDW Plt Count Lymph % (Auto) [place] % (Auto) Eos % (Auto) Baso % (Auto) Lymph # Baso # Seg Neutrophils % Lymphocytes % (Manual) Monocytes % (Manual) Nucleated RBC % Seg Neutrophils # Seg Neutrophils # Man Monocytes # (Manual) PT INR Activated Clotting Time POC ABG pH POC ABG pCO2 POC ABG pO2 Sodium Potassium Chloride Carbon Dioxide BUN Creatinine Glucose POC Glucose 126 H 116 H 131 H Calcium Magnesium Direct Bilirubin AST ALT Alkaline Phosphatase Total Creatine Kinase CK-MB (CK-2) CK-MB (CK-2) Rel Index Troponin T C-Reactive Protein Total Protein Albumin Triglycerides Ur Specific [place] Urine WBC (Auto) Miscellaneous Test 05/14/17 05/15/17 05/15/17 11:45 11:27 17:42 WBC RBC Hgb Hct MCV MCH RDW Plt Count Lymph % (Auto) [place] % (Auto) Eos % (Auto) Baso % (Auto) Lymph # Baso # Seg Neutrophils % Lymphocytes % (Manual) Monocytes % (Manual) Nucleated RBC % Seg Neutrophils # Seg Neutrophils # Man Monocytes # (Manual) PT INR Activated Clotting Time POC ABG pH POC ABG pCO2 POC ABG pO2 Sodium Potassium Chloride Carbon Dioxide BUN Creatinine Glucose POC Glucose 123 H 129 H 125 H Calcium Magnesium Direct Bilirubin AST ALT Alkaline Phosphatase Total Creatine Kinase CK-MB (CK-2) CK-MB (CK-2) Rel Index Troponin T C-Reactive Protein Total Protein Albumin Triglycerides Ur Specific [place] Urine WBC (Auto) Miscellaneous Test 05/16/17 05/16/17 05/17/17 00:29 06:50 03:45 WBC RBC Hgb 11.7 L Hct 34.8 L MCV MCH RDW 15.5 H Plt Count Lymph % (Auto) [place] % (Auto) 7.7 H Eos % (Auto) Baso % (Auto) Lymph # Baso # Seg Neutrophils % 73.7 H Lymphocytes % (Manual) Monocytes % (Manual) Nucleated RBC % Seg Neutrophils # Seg Neutrophils # Man Monocytes # (Manual) PT INR Activated Clotting Time POC ABG pH POC ABG pCO2 POC ABG pO2 Sodium Potassium Chloride Carbon Dioxide BUN Creatinine Glucose POC Glucose 141 H 138 H Calcium Magnesium Direct Bilirubin AST ALT Alkaline Phosphatase Total Creatine Kinase CK-MB (CK-2) CK-MB (CK-2) Rel Index Troponin T C-Reactive Protein Total Protein Albumin Triglycerides Ur Specific [place] Urine WBC (Auto) Miscellaneous Test 05/17/17 05/20/17 05/23/17 03:45 17:31 23:09 WBC RBC Hgb Hct MCV MCH RDW Plt Count Lymph % (Auto) [place] % (Auto) Eos % (Auto) Baso % (Auto) Lymph # Baso # Seg Neutrophils % Lymphocytes % (Manual) Monocytes % (Manual) Nucleated RBC % Seg Neutrophils # Seg Neutrophils # Man Monocytes # (Manual) PT INR Activated Clotting Time POC ABG pH POC ABG pCO2 POC ABG pO2 Sodium Potassium Chloride Carbon Dioxide BUN Creatinine 0.2 L Glucose 131 H POC Glucose 116 H 122 H Calcium Magnesium Direct Bilirubin AST ALT Alkaline Phosphatase Total Creatine Kinase CK-MB (CK-2) CK-MB (CK-2) Rel Index Troponin T C-Reactive Protein Total Protein Albumin Triglycerides Ur Specific [place] Urine WBC (Auto) Miscellaneous Test 05/24/17 05/26/17 05/27/17 05:37 05:23 01:16 WBC RBC Hgb Hct MCV MCH RDW Plt Count Lymph % (Auto) [place] % (Auto) Eos % (Auto) Baso % (Auto) Lymph # Baso # Seg Neutrophils % Lymphocytes % (Manual) Monocytes % (Manual) Nucleated RBC % Seg Neutrophils # Seg Neutrophils # Man Monocytes # (Manual) PT INR Activated Clotting Time POC ABG pH POC ABG pCO2 POC ABG pO2 Sodium Potassium Chloride Carbon Dioxide BUN Creatinine Glucose POC Glucose 139 H 108 H 126 H Calcium Magnesium Direct Bilirubin AST ALT Alkaline Phosphatase Total Creatine Kinase CK-MB (CK-2) CK-MB (CK-2) Rel Index Troponin T C-Reactive Protein Total Protein Albumin Triglycerides Ur Specific [place] Urine WBC (Auto) Miscellaneous Test 05/27/17 05/27/17 05/29/17 05:33 21:49 04:37 WBC RBC Hgb Hct MCV MCH RDW 15.5 H Plt Count Lymph % (Auto) [place] % (Auto) Eos % (Auto) Baso % (Auto) Lymph # Baso # Seg Neutrophils % Lymphocytes % (Manual) Monocytes % (Manual) Nucleated RBC % Seg Neutrophils # Seg Neutrophils # Man Monocytes # (Manual) PT INR Activated Clotting Time POC ABG pH POC ABG pCO2 POC ABG pO2 Sodium Potassium Chloride Carbon Dioxide BUN Creatinine Glucose POC Glucose 129 H 110 H Calcium Magnesium Direct Bilirubin AST ALT Alkaline Phosphatase Total Creatine Kinase CK-MB (CK-2) CK-MB (CK-2) Rel Index Troponin T C-Reactive Protein Total Protein Albumin Triglycerides Ur Specific [place] Urine WBC (Auto) Miscellaneous Test 05/29/17 06/01/17 04:37 05:28 WBC RBC Hgb Hct MCV MCH RDW Plt Count Lymph % (Auto) [place] % (Auto) Eos % (Auto) Baso % (Auto) Lymph # Baso # Seg Neutrophils % Lymphocytes % (Manual) Monocytes % (Manual) Nucleated RBC % Seg Neutrophils # Seg Neutrophils # Man Monocytes # (Manual) PT INR Activated Clotting Time POC ABG pH POC ABG pCO2 POC ABG pO2 Sodium Potassium Chloride 97.6 L Carbon Dioxide BUN Creatinine 0.2 L Glucose 121 H POC Glucose 133 H Calcium Magnesium Direct Bilirubin AST ALT Alkaline Phosphatase Total Creatine Kinase CK-MB (CK-2) CK-MB (CK-2) Rel Index Troponin T C-Reactive Protein Total Protein Albumin Triglycerides Ur Specific [place] Urine WBC (Auto) Miscellaneous Test
[2017-06-07] MEDS: PROTONIX FEEDTUBE SCH (09:33)
[2017-06-07] MEDS: CORDARONE PO SCH ×2 (09:33→22:22)
[2017-06-07] MEDS: LOPRESSOR PO SCH ×2 (09:33→22:13)
[2017-06-07] MEDS: ASPIRIN PO SCH (09:34)
[2017-06-07] MEDS: PLAVIX PO SCH (09:34)
[2017-06-07] MEDS: ZESTRIL PO SCH (09:34)
[2017-06-07] MEDS: ELIQUIS PO SCH ×2 (09:35→22:22)
[2017-06-07] MEDS: TRANSDERM-SCOP TD SCH (17:20)
--- NOTE | 2017-06-07 17:23 | Progress Note ---
Assessment and Plan Assessment and plan: Anoxic encephalopathy STEMI, status post cardiac cath and stent placement Respiratory failure on trach and MV>96hrs Aspiration pneumonia treated with Iv antibiotics DVT; on eliquis - No change from baseline - No Family member in the room to discuss a plan of care History Interval history: Patient was seen and evaluated this morning, no change from baseline, unresponsive, on trach and MV. Hospitalist Physical - Physical exam Narrative exam: Patient has trach and mechanical ventilation. The patient appeared well nourished and normally developed. Vital signs as documented. Head exam is unremarkable. No scleral icterus . Neck is without jugular venous distension, thyromegaly, or carotid bruits. Lungs are clear to auscultation. Cardiac exam reveals regular rate and Rhythm. First and second heart sounds normal. No murmurs, rubs or gallops. Abdominal exam reveals normal bowel sounds, no masses, no organomegaly and no aortic enlargement. Extremities are nonedematous and both femoral and pedal pulses are normal. 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 - Constitutional Vitals: Temp Pulse Resp BP Pulse Ox 98.6 F 70 20 100/63 100 06/07/17 16:00 06/07/17 17:00 06/07/17 17:00 06/07/17 17:00 06/07/17 17:00 General appearance: Present: other (tracheostomy on vent) Results - Labs CBC & Chem 7: 05/29/17 04:37 05/29/17 04:37 Labs: Laboratory Last Values WBC 8.0 K/mm3 (4.5-11.0) 05/29/17 04:37 RBC 4.52 M/mm3 (3.65-5.03) 05/29/17 04:37 Hgb 13.6 gm/dl (11.8-15.2) 05/29/17 04:37 Hct 40.6 % (35.5-45.6) 05/29/17 04:37 MCV 90 fl (84-94) 05/29/17 04:37 MCH 30 pg (28-32) 05/29/17 04:37 MCHC 33 % (32-34) 05/29/17 04:37 RDW 15.5 % (13.2-15.2) H 05/29/17 04:37 Plt Count 222 K/mm3 (140-440) 05/29/17 04:37 Lymph % (Auto) 15.6 % (13.4-35.0) 05/17/17 03:45 [place] % (Auto) 7.7 % (0.0-7.3) H 05/17/17 03:45 Eos % (Auto) 2.7 % (0.0-4.3) 05/17/17 03:45 Baso % (Auto) 0.3 % (0.0-1.8) 05/17/17 03:45 Lymph # 1.5 K/mm3 (1.2-5.4) 05/17/17 03:45 [place] # 0.7 K/mm3 (0.0-0.8) 05/17/17 03:45 Eos # 0.3 K/mm3 (0.0-0.4) 05/17/17 03:45 Baso # 0.0 K/mm3 (0.0-0.1) 05/17/17 03:45 Add Manual Diff Complete 03/30/17 03:50 Total Counted 100 03/30/17 03:50 Seg Neutrophils % 73.7 % (40.0-70.0) H 05/17/17 03:45 Seg Neuts % (Manual) 65.0 % (40.0-70.0) 03/30/17 03:50 Band Neutrophils % 17.0 % 03/30/17 03:50 Lymphocytes % (Manual) 7.0 % (13.4-35.0) L 03/30/17 03:50 Reactive Lymphs % (Man) 0 % 03/30/17 03:50 Monocytes % (Manual) 7.0 % (0.0-7.3) 03/30/17 03:50 Eosinophils % (Manual) 0 % (0.0-4.3) 03/30/17 03:50 Basophils % (Manual) 0 % (0.0-1.8) 03/30/17 03:50 Metamyelocytes % 4.0 % 03/30/17 03:50 Myelocytes % 0 % 03/30/17 03:50 Promyelocytes % 0 % 03/30/17 03:50 Blast Cells % 0 % 03/30/17 03:50 Nucleated RBC % Not Reportable 03/30/17 03:50 Seg Neutrophils # 6.9 K/mm3 (1.8-7.7) 05/17/17 03:45 Seg Neutrophils # Man 12.7 K/mm3 (1.8-7.7) H 03/30/17 03:50 Band Neutrophils # 3.3 K/mm3 03/30/17 03:50 Lymphocytes # (Manual) 1.4 K/mm3 (1.2-5.4) 03/30/17 03:50 Abs React Lymphs (Man) 0.0 K/mm3 03/30/17 03:50 Monocytes # (Manual) 1.4 K/mm3 (0.0-0.8) H 03/30/17 03:50 Eosinophils # (Manual) 0.0 K/mm3 (0.0-0.4) 03/30/17 03:50 Basophils # (Manual) 0.0 K/mm3 (0.0-0.1) 03/30/17 03:50 Metamyelocytes # 0.8 K/mm3 03/30/17 03:50 Myelocytes # 0.0 K/mm3 03/30/17 03:50 Promyelocytes # 0.0 K/mm3 03/30/17 03:50 Blast Cells # 0.0 K/mm3 03/30/17 03:50 WBC Morphology Not Reportable 03/30/17 03:50 Hypersegmented Neuts Not Reportable 03/30/17 03:50 Hyposegmented Neuts Not Reportable 03/30/17 03:50 Hypogranular Neuts Not Reportable 03/30/17 03:50 Smudge Cells Not Reportable 03/30/17 03:50 Toxic Granulation Not Reportable 03/30/17 03:50 Toxic Vacuolation Not Reportable 03/30/17 03:50 Dohle Bodies Not Reportable 03/30/17 03:50 Pelger-Huet Anomaly Not Reportable 03/30/17 03:50 Sherry Rods Not Reportable 03/30/17 03:50 Platelet Estimate Appears normal 03/30/17 03:50 Clumped Platelets Not Reportable 03/30/17 03:50 Plt Clumps, EDTA Not Reportable 03/30/17 03:50 Large Platelets Not Reportable 03/30/17 03:50 Giant Platelets Not Reportable 03/30/17 03:50 Platelet Satelliting Not Reportable 03/30/17 03:50 Plt Morphology Comment Not Reportable 03/30/17 03:50 RBC Morphology Not Reportable 03/30/17 03:50 Dimorphic RBCs Not Reportable 03/30/17 03:50 Polychromasia Not Reportable 03/30/17 03:50 Hypochromasia Not Reportable 03/30/17 03:50 Poikilocytosis Not Reportable 03/30/17 03:50 Anisocytosis Few 03/30/17 03:50 Microcytosis Not Reportable 03/30/17 03:50 Macrocytosis Not Reportable 03/30/17 03:50 Spherocytes Not Reportable 03/30/17 03:50 Pappenheimer Bodies Not Reportable 03/30/17 03:50 Sickle Cells Not Reportable 03/30/17 03:50 Target Cells Not Reportable 03/30/17 03:50 Tear Drop Cells Not Reportable 03/30/17 03:50 Ovalocytes Not Reportable 03/30/17 03:50 Helmet Cells Not Reportable 03/30/17 03:50 [place] Bodies Not Reportable 03/30/17 03:50 [place] Rings Not Reportable 03/30/17 03:50 [place] Cells Not Reportable 03/30/17 03:50 Bite Cells Not Reportable 03/30/17 03:50 Crenated Cell Not Reportable 03/30/17 03:50 Elliptocytes Not Reportable 03/30/17 03:50 Acanthocytes (Spur) Not Reportable 03/30/17 03:50 Rouleaux Not Reportable 03/30/17 03:50 Hemoglobin C Crystals Not Reportable 03/30/17 03:50 Schistocytes Not Reportable 03/30/17 03:50 Malaria parasites Not Reportable 03/30/17 03:50 [place] Bodies Not Reportable 03/30/17 03:50 Hem Pathologist Commnt No 03/30/17 03:50 PT 14.9 Sec. (12.2-14.9) 04/10/17 04:16 INR 1.11 (0.87-1.13) 04/10/17 04:16 APTT 27.8 Sec. (24.2-36.6) 04/10/17 04:16 Activated Clotting Time 92 (74-137) 03/29/17 17:47 POC ABG pH 7.524 (7.35-7.45) H 05/09/17 04:19 POC ABG pCO2 34.7 (35-45) L 05/09/17 04:19 POC ABG pO2 107 (80-105) H 05/09/17 04:19 POC ABG HCO3 28.6 05/09/17 04:19 POC ABG Total CO2 30 05/09/17 04:19 POC ABG O2 Sat 99 05/09/17 04:19 POC ABG Base Excess 6 05/09/17 04:19 FiO2 25 % 05/09/17 04:19 Sodium 138 mmol/L (137-145) 05/29/17 04:37 Potassium 4.2 mmol/L (3.6-5.0) 05/29/17 04:37 Chloride 97.6 mmol/L (98-107) L 05/29/17 04:37 Carbon Dioxide 23 mmol/L (22-30) 05/29/17 04:37 Anion Gap 22 mmol/L 05/29/17 04:37 BUN 14 mg/dL (9-20) 05/29/17 04:37 Creatinine 0.2 mg/dL (0.8-1.5) L 05/29/17 04:37 Estimated GFR > 60 ml/min 05/29/17 04:37 BUN/Creatinine Ratio 70 % 05/29/17 04:37 Glucose 121 mg/dL (75-100) H 05/29/17 04:37 POC Glucose 133 (70-105) H 06/01/17 05:28 Calcium 9.5 mg/dL (8.4-10.2) 05/29/17 04:37 Phosphorus 3.50 mg/dL (2.5-4.5) 04/13/17 04:45 Magnesium 1.80 mg/dL (1.7-2.3) 05/01/17 05:30 Total Bilirubin 0.60 mg/dL (0.1-1.2) 05/01/17 05:30 Direct Bilirubin < 0.2 mg/dL (0-0.2) 04/27/17 05:40 Indirect Bilirubin 0.3 mg/dL 04/25/17 04:51 AST 71 units/L (5-40) H 05/01/17 05:30 ALT 125 units/L (7-56) H 05/01/17 05:30 Alkaline Phosphatase 158 units/L (35-129) H 05/01/17 05:30 Total Creatine Kinase 1404 units/L (55-170) H 04/12/17 21:36 CK-MB (CK-2) 8.0 ng/mL (0.0-4.0) H 04/12/17 21:36 CK-MB (CK-2) Rel Index 0.5 (0-4) 04/12/17 21:36 Troponin T 0.767 ng/mL (0.00-0.029) H* 04/12/17 21:36 C-Reactive Protein 21.80 mg/dL (0.00-1.30) H 03/30/17 16:04 Total Protein 6.7 g/dL (6.3-8.2) 05/01/17 05:30 Albumin 2.6 g/dL (3.9-5) L 05/01/17 05:30 Albumin/Globulin Ratio 0.6 % 05/01/17 05:30 Triglycerides 151 mg/dL (2-149) H 04/01/17 04:29 Cholesterol 164 mg/dL (50-199) 03/29/17 19:52 LDL Cholesterol Direct 81 mg/dL (50-130) 03/29/17 19:52 HDL Cholesterol 44 mg/dL (40-59) 03/29/17 19:52 Cholesterol/HDL Ratio 3.72 % 03/29/17 19:52 Urine Color [place] (Yellow) 04/21/17 22:00 Urine Turbidity Clear (Clear) 04/21/17 22:00 Urine pH 5.0 (5.0-7.0) 04/21/17 22:00 Ur Specific [place] 1.029 (1.003-1.030) 04/21/17 22:00 Urine Protein 30 mg/dl mg/dL (Negative) 04/21/17 22:00 Urine Glucose (UA) Neg mg/dL (Negative) 04/21/17 22:00 Urine Ketones Neg mg/dL (Negative) 04/21/17 22:00 Urine Blood Mod (Negative) 04/21/17 22:00 Urine Nitrite Neg (Negative) 04/21/17 22:00 Urine Bilirubin Neg (Negative) 04/21/17 22:00 Urine Urobilinogen 4.0 mg/dL (<2.0) 04/21/17 22:00 Ur Leukocyte Esterase Neg (Negative) 04/21/17 22:00 Urine WBC (Auto) 10.0 /HPF (0.0-6.0) H 04/21/17 22:00 Urine RBC (Auto) 44.0 /HPF (0.0-6.0) 04/21/17 22:00 U Epithel Cells (Auto) < 1.0 /HPF (0-13.0) 04/21/17 22:00 Amorphous Crystals 1+ 03/30/17 09:45 Urine Mucus 3+ /HPF 04/21/17 22:00 Urine Opiates Screen Presumptive negative 03/30/17 09:45 Urine Methadone Screen Presumptive negative 03/30/17 09:45 Ur Barbiturates Screen Presumptive negative 03/30/17 09:45 Ur Phencyclidine Scrn Presumptive negative 03/30/17 09:45 Ur Amphetamines Screen Presumptive positive 03/30/17 09:45 U Benzodiazepines Scrn Presumptive positive 03/30/17 09:45 Urine Cocaine Screen Presumptive negative 03/30/17 09:45 U Marijuana (THC) Screen Presumptive negative 03/30/17 09:45 Drugs of Abuse Note Disclamer 03/30/17 09:45 Miscellaneous Test Flexitest 1 H 04/25/17 07:07 Blood Type O POSITIVE 03/29/17 11:35 Antibody Screen Negative 03/29/17 11:35
--- NOTE | 2017-06-08 09:19 | Progress Note ---
Assessment and Plan Out of hospital cardiac arrest Hypoxic encephalopathy. Remains the same. See neuro comments Respiratory failure. tolerating spontaneous breathing trial more consistently. Pressure support/CPAP of 5/5 cm tolerate consistently this morning. At the bedside,I switched off pressure support and the patient showed no apneas and study title volume 300- 400s cc DVT RUE. On Eliquis STEMI-on Eliquis, Plavix, aspirin s/p LHC with stent placement Prior MRSA,RLL . No fever, off antibiotics Recommendations Switch to tracheotomy mask/oxygen , if not tolerated restart pressure support/ CPAP with backup rate Trach care suction Monitor fever changes and secretions Discussed with RT in detail. No family members present at the bedside for additional update. Critical care time with a 31 minutes of [id number] evaluation and coordination of care Subjective Date of service: 06/08/17 Principal diagnosis: coma,ARV,s/p arrest,ARF MV Interval history: MV support, tracheotomy Objective Vital Signs - 12hr 06/07/17 06/07/17 06/07/17 22:00 22:08 22:13 Temperature Pulse Rate 68 70 65 Pulse Rate [ From Monitor] Respiratory 17 17 Rate Blood Pressure 95/59 95/59 95/59 O2 Sat by Pulse 86 94 Oximetry O2 Sat by Pulse Oximetry [ Assessment] 06/07/17 06/08/17 06/08/17 23:00 00:00 00:04 Temperature 99.0 F Pulse Rate 54 L 63 Pulse Rate [ 61 From Monitor] Respiratory 19 21 Rate Blood Pressure 97/51 94/58 O2 Sat by Pulse 98 100 Oximetry O2 Sat by Pulse 100 Oximetry [ Assessment] 06/08/17 06/08/17 06/08/17 01:00 02:00 03:00 Temperature Pulse Rate 57 L 64 55 L Pulse Rate [ From Monitor] Respiratory 20 20 17 Rate Blood Pressure 91/51 96/60 91/52 O2 Sat by Pulse 100 98 96 Oximetry O2 Sat by Pulse Oximetry [ Assessment] 06/08/17 06/08/17 06/08/17 04:00 04:58 05:00 Temperature 98.9 F Pulse Rate 59 L 59 L 65 Pulse Rate [ 64 From Monitor] Respiratory 18 16 22 Rate Blood Pressure 93/41 98/58 98/58 O2 Sat by Pulse 94 100 97 Oximetry O2 Sat by Pulse Oximetry [ Assessment] 06/08/17 06/08/1706/08/18 06:00 07:00 07:48 Temperature Pulse Rate 59 L 54 L 62 Pulse Rate [ From Monitor] Respiratory 13 12 21 Rate Blood Pressure 96/57 89/45 89/45 O2 Sat by Pulse 99 97 100 Oximetry O2 Sat by Pulse Oximetry [ Assessment] 06/08/17 06/08/17 06/08/17 07:52 08:00 08:21 Temperature Pulse Rate 55 L 56 L Pulse Rate [ 56 L From Monitor] Respiratory 23 17 Rate Blood Pressure 95/54 95/54 O2 Sat by Pulse 99 99 Oximetry O2 Sat by Pulse 100 Oximetry [ Assessment] Constitutional: no acute distress, other (stuporous, no changes) Eyes: non-icteric ENT: oropharynx moist Neck: supple, other (tracheotomy ) Effort: normal Ascultation: Bilateral: clear, diminished breath sounds Percussion: Bilateral: not dull Cardiovascular: regular rate and rhythm Gastrointestinal: normoactive bowel sounds, soft, non-tender, non-distended Integumentary: normal Extremities: no cyanosis, no edema, pink and warm Neurologic: other (no change) CBC and BMP: 05/29/17 04:37 05/29/17 04:37 ABG, PT/INR, D-dimer: ABG POC ABG pH 7.524 (7.35-7.45) H 05/09/17 04:19 POC ABG pCO2 34.7 (35-45) L 05/09/17 04:19 POC ABG pO2 107 (80-105) H 05/09/17 04:19 POC ABG HCO3 28.6 05/09/17 04:19 POC ABG Total CO2 30 05/09/17 04:19 POC ABG O2 Sat 99 05/09/17 04:19 PT/INR, D-dimer PT 14.9 Sec. (12.2-14.9) 04/10/17 04:16 INR 1.11 (0.87-1.13) 04/10/17 04:16 Abnormal lab findings: Abnormal Labs 03/29/17 03/29/17 03/29/17 11:35 11:35 11:40 WBC RBC Hgb Hct MCV 98 H MCH 33 H RDW Plt Count Lymph % (Auto) [place] % (Auto) Eos % (Auto) Baso % (Auto) Lymph # Baso # Seg Neutrophils % Lymphocytes % (Manual) Monocytes % (Manual) 9.0 H Nucleated RBC % 1.0 H Seg Neutrophils # Seg Neutrophils # Man Monocytes # (Manual) 0.9 H PT 15.8 H INR 1.20 H Activated Clotting Time POC ABG pH POC ABG pCO2 POC ABG pO2 Sodium Potassium 2.7 L* Chloride 95.3 L Carbon Dioxide 17 L BUN Creatinine Glucose 435 H POC Glucose Calcium Magnesium Direct Bilirubin AST ALT Alkaline Phosphatase Total Creatine Kinase CK-MB (CK-2) CK-MB (CK-2) Rel Index Troponin T C-Reactive Protein Total Protein 6.1 L Albumin 3.5 L Triglycerides Ur Specific [place] Urine WBC (Auto) Miscellaneous Test 03/29/17 03/29/17 03/29/17 12:34 13:10 13:25 WBC RBC Hgb Hct MCV MCH RDW Plt Count Lymph % (Auto) [place] % (Auto) Eos % (Auto) Baso % (Auto) Lymph # Baso # Seg Neutrophils % Lymphocytes % (Manual) Monocytes % (Manual) Nucleated RBC % Seg Neutrophils # Seg Neutrophils # Man Monocytes # (Manual) PT INR Activated Clotting Time 142 H 169 H 175 H POC ABG pH POC ABG pCO2 POC ABG pO2 Sodium Potassium Chloride Carbon Dioxide BUN Creatinine Glucose POC Glucose Calcium Magnesium Direct Bilirubin AST ALT Alkaline Phosphatase Total Creatine Kinase CK-MB (CK-2) CK-MB (CK-2) Rel Index Troponin T C-Reactive Protein Total Protein Albumin Triglycerides Ur Specific [place] Urine WBC (Auto) Miscellaneous Test 03/29/17 03/29/17 03/29/17 14:50 15:18 19:52 WBC RBC Hgb Hct MCV MCH RDW Plt Count Lymph % (Auto) [place] % (Auto) Eos % (Auto) Baso % (Auto) Lymph # Baso # Seg Neutrophils % Lymphocytes % (Manual) Monocytes % (Manual) Nucleated RBC % Seg Neutrophils # Seg Neutrophils # Man Monocytes # (Manual) PT INR Activated Clotting Time 175 H POC ABG pH 7.293 L POC ABG pCO2 POC ABG pO2 602 H Sodium Potassium Chloride Carbon Dioxide BUN Creatinine Glucose POC Glucose Calcium Magnesium Direct Bilirubin AST ALT Alkaline Phosphatase Total Creatine Kinase 7263 H CK-MB (CK-2) > 300.0 H CK-MB (CK-2) Rel Index 4.1 H Troponin T 8.080 H* D C-Reactive Protein Total Protein Albumin Triglycerides 195 H Ur Specific [place] Urine WBC (Auto) Miscellaneous Test 03/30/17 03/30/17 03/30/17 03:50 03:50 06:19 WBC 19.5 H RBC Hgb Hct MCV MCH RDW Plt Count Lymph % (Auto) [place] % (Auto) Eos % (Auto) Baso % (Auto) Lymph # Baso # Seg Neutrophils % Lymphocytes % (Manual) 7.0 L Monocytes % (Manual) Nucleated RBC % Seg Neutrophils # Seg Neutrophils # Man 12.7 H Monocytes # (Manual) 1.4 H PT INR Activated Clotting Time POC ABG pH POC ABG pCO2 28.2 L POC ABG pO2 108 H Sodium Potassium Chloride 108.9 H Carbon Dioxide 15 L BUN 25 H Creatinine Glucose 158 H POC Glucose Calcium 8.1 L Magnesium Direct Bilirubin AST ALT Alkaline Phosphatase Total Creatine Kinase 7963 H CK-MB (CK-2) > 300.0 H CK-MB (CK-2) Rel Index Troponin T 6.850 H* C-Reactive Protein Total Protein Albumin Triglycerides Ur Specific [place] Urine WBC (Auto) Miscellaneous Test 03/30/17 03/30/17 03/31/17 09:45 16:04 02:19 WBC RBC Hgb Hct MCV MCH RDW Plt Count Lymph % (Auto) [place] % (Auto) Eos % (Auto) Baso % (Auto) Lymph # Baso # Seg Neutrophils % Lymphocytes % (Manual) Monocytes % (Manual) Nucleated RBC % Seg Neutrophils # Seg Neutrophils # Man Monocytes # (Manual) PT INR Activated Clotting Time POC ABG pH POC ABG pCO2 POC ABG pO2 Sodium Potassium Chloride Carbon Dioxide BUN Creatinine Glucose POC Glucose 137 H Calcium Magnesium Direct Bilirubin AST ALT Alkaline Phosphatase Total Creatine Kinase CK-MB (CK-2) CK-MB (CK-2) Rel Index Troponin T C-Reactive Protein 21.80 H Total Protein Albumin Triglycerides Ur Specific [place] 1.031 H Urine WBC (Auto) Miscellaneous Test 03/31/17 03/31/17 03/31/17 03:57 06:54 09:22 WBC RBC Hgb Hct MCV MCH RDW Plt Count Lymph % (Auto) [place] % (Auto) Eos % (Auto) Baso % (Auto) Lymph # Baso # Seg Neutrophils % Lymphocytes % (Manual) Monocytes % (Manual) Nucleated RBC % Seg Neutrophils # Seg Neutrophils # Man Monocytes # (Manual) PT INR Activated Clotting Time POC ABG pH 7.475 H POC ABG pCO2 25.4 L POC ABG pO2 62 L Sodium Potassium Chloride Carbon Dioxide 19 L BUN 22 H Creatinine 0.6 L Glucose 148 H POC Glucose 143 H Calcium 8.3 L Magnesium Direct Bilirubin AST ALT Alkaline Phosphatase Total Creatine Kinase CK-MB (CK-2) CK-MB (CK-2) Rel Index Troponin T C-Reactive Protein Total Protein Albumin Triglycerides Ur Specific [place] Urine WBC (Auto) Miscellaneous Test 03/31/17 03/31/17 03/31/17 11:40 17:47 23:38 WBC RBC Hgb Hct MCV MCH RDW Plt Count Lymph % (Auto) [place] % (Auto) Eos % (Auto) Baso % (Auto) Lymph # Baso # Seg Neutrophils % Lymphocytes % (Manual) Monocytes % (Manual) Nucleated RBC % Seg Neutrophils # Seg Neutrophils # Man Monocytes # (Manual) PT INR Activated Clotting Time POC ABG pH POC ABG pCO2 POC ABG pO2 Sodium Potassium Chloride Carbon Dioxide BUN Creatinine Glucose POC Glucose 127 H 137 H 148 H Calcium Magnesium Direct Bilirubin AST ALT Alkaline Phosphatase Total Creatine Kinase CK-MB (CK-2) CK-MB (CK-2) Rel Index Troponin T C-Reactive Protein Total Protein Albumin Triglycerides Ur Specific [place] Urine WBC (Auto) Miscellaneous Test 04/01/17 04/01/17 04/01/17 04:29 05:01 11:54 WBC RBC Hgb Hct MCV MCH RDW Plt Count Lymph % (Auto) [place] % (Auto) Eos % (Auto) Baso % (Auto) Lymph # Baso # Seg Neutrophils % Lymphocytes % (Manual) Monocytes % (Manual) Nucleated RBC % Seg Neutrophils # Seg Neutrophils # Man Monocytes # (Manual) PT INR Activated Clotting Time POC ABG pH 7.513 H POC ABG pCO2 22.1 L POC ABG pO2 64 L Sodium Potassium Chloride Carbon Dioxide BUN Creatinine Glucose POC Glucose 121 H Calcium Magnesium Direct Bilirubin AST ALT Alkaline Phosphatase Total Creatine Kinase CK-MB (CK-2) CK-MB (CK-2) Rel Index Troponin T C-Reactive Protein Total Protein Albumin Triglycerides 151 H Ur Specific [place] Urine WBC (Auto) Miscellaneous Test 04/01/17 04/02/17 04/02/17 18:17 00:11 04:52 WBC RBC Hgb Hct MCV MCH RDW Plt Count Lymph % (Auto) [place] % (Auto) Eos % (Auto) Baso % (Auto) Lymph # Baso # Seg Neutrophils % Lymphocytes % (Manual) Monocytes % (Manual) Nucleated RBC % Seg Neutrophils # Seg Neutrophils # Man Monocytes # (Manual) PT INR Activated Clotting Time POC ABG pH 7.524 H POC ABG pCO2 25.5 L POC ABG pO2 66 L Sodium Potassium Chloride Carbon Dioxide BUN Creatinine Glucose POC Glucose 117 H 122 H Calcium Magnesium Direct Bilirubin AST ALT Alkaline Phosphatase Total Creatine Kinase CK-MB (CK-2) CK-MB (CK-2) Rel Index Troponin T C-Reactive Protein Total Protein Albumin Triglycerides Ur Specific [place] Urine WBC (Auto) Miscellaneous Test 04/02/17 04/02/17 04/02/17 05:18 10:41 12:19 WBC RBC Hgb Hct MCV MCH RDW Plt Count Lymph % (Auto) [place] % (Auto) Eos % (Auto) Baso % (Auto) Lymph # Baso # Seg Neutrophils % Lymphocytes % (Manual) Monocytes % (Manual) Nucleated RBC % Seg Neutrophils # Seg Neutrophils # Man Monocytes # (Manual) PT INR Activated Clotting Time POC ABG pH 7.534 H POC ABG pCO2 27.4 L POC ABG pO2 Sodium Potassium Chloride Carbon Dioxide BUN Creatinine Glucose POC Glucose 132 H 129 H Calcium Magnesium Direct Bilirubin AST ALT Alkaline Phosphatase Total Creatine Kinase CK-MB (CK-2) CK-MB (CK-2) Rel Index Troponin T C-Reactive Protein Total Protein Albumin Triglycerides Ur Specific [place] Urine WBC (Auto) Miscellaneous Test 04/02/17 04/03/17 04/03/17 18:05 00:08 05:09 WBC RBC Hgb Hct MCV MCH RDW Plt Count Lymph % (Auto) [place] % (Auto) Eos % (Auto) Baso % (Auto) Lymph # Baso # Seg Neutrophils % Lymphocytes % (Manual) Monocytes % (Manual) Nucleated RBC % Seg Neutrophils # Seg Neutrophils # Man Monocytes # (Manual) PT INR Activated Clotting Time POC ABG pH 7.455 H POC ABG pCO2 33.2 L POC ABG pO2 120 H Sodium Potassium Chloride Carbon Dioxide BUN Creatinine Glucose POC Glucose 136 H 128 H Calcium Magnesium Direct Bilirubin AST ALT Alkaline Phosphatase Total Creatine Kinase CK-MB (CK-2) CK-MB (CK-2) Rel Index Troponin T C-Reactive Protein Total Protein Albumin Triglycerides Ur Specific [place] Urine WBC (Auto) Miscellaneous Test 04/03/17 04/03/17 04/03/17 06:32 11:54 12:16 WBC 11.9 H RBC Hgb Hct MCV MCH RDW Plt Count 125 L Lymph % (Auto) 4.8 L [place] % (Auto) Eos % (Auto) Baso % (Auto) Lymph # 0.6 L Baso # Seg Neutrophils % 86.7 H Lymphocytes % (Manual) Monocytes % (Manual) Nucleated RBC % Seg Neutrophils # 10.3 H Seg Neutrophils # Man Monocytes # (Manual) PT INR Activated Clotting Time POC ABG pH POC ABG pCO2 POC ABG pO2 Sodium Potassium Chloride Carbon Dioxide BUN Creatinine Glucose POC Glucose 138 H 143 H Calcium Magnesium Direct Bilirubin AST ALT Alkaline Phosphatase Total Creatine Kinase CK-MB (CK-2) CK-MB (CK-2) Rel Index Troponin T C-Reactive Protein Total Protein Albumin Triglycerides Ur Specific [place] Urine WBC (Auto) Miscellaneous Test 04/03/17 04/03/17 04/04/17 17:33 23:59 04:34 WBC RBC Hgb Hct MCV MCH RDW Plt Count Lymph % (Auto) [place] % (Auto) Eos % (Auto) Baso % (Auto) Lymph # Baso # Seg Neutrophils % Lymphocytes % (Manual) Monocytes % (Manual) Nucleated RBC % Seg Neutrophils # Seg Neutrophils # Man Monocytes # (Manual) PT INR Activated Clotting Time POC ABG pH 7.457 H POC ABG pCO2 29.8 L POC ABG pO2 76 L Sodium Potassium Chloride Carbon Dioxide BUN Creatinine Glucose POC Glucose 130 H 155 H Calcium Magnesium Direct Bilirubin AST ALT Alkaline Phosphatase Total Creatine Kinase CK-MB (CK-2) CK-MB (CK-2) Rel Index Troponin T C-Reactive Protein Total Protein Albumin Triglycerides Ur Specific [place] Urine WBC (Auto) Miscellaneous Test 04/04/17 04/04/17 04/04/17 05:27 12:22 18:18 WBC RBC Hgb Hct MCV MCH RDW Plt Count Lymph % (Auto) [place] % (Auto) Eos % (Auto) Baso % (Auto) Lymph # Baso # Seg Neutrophils % Lymphocytes % (Manual) Monocytes % (Manual) Nucleated RBC % Seg Neutrophils # Seg Neutrophils # Man Monocytes # (Manual) PT INR Activated Clotting Time POC ABG pH POC ABG pCO2 POC ABG pO2 Sodium Potassium Chloride Carbon Dioxide BUN Creatinine Glucose POC Glucose 164 H 146 H 130 H Calcium Magnesium Direct Bilirubin AST ALT Alkaline Phosphatase Total Creatine Kinase CK-MB (CK-2) CK-MB (CK-2) Rel Index Troponin T C-Reactive Protein Total Protein Albumin Triglycerides Ur Specific [place] Urine WBC (Auto) Miscellaneous Test 04/05/17 04/05/17 04/05/17 04:43 05:28 11:36 WBC RBC Hgb Hct MCV MCH RDW Plt Count Lymph % (Auto) [place] % (Auto) Eos % (Auto) Baso % (Auto) Lymph # Baso # Seg Neutrophils % Lymphocytes % (Manual) Monocytes % (Manual) Nucleated RBC % Seg Neutrophils # Seg Neutrophils # Man Monocytes # (Manual) PT INR Activated Clotting Time POC ABG pH 7.479 H POC ABG pCO2 33.5 L POC ABG pO2 76 L Sodium Potassium Chloride Carbon Dioxide BUN Creatinine Glucose POC Glucose 145 H 136 H Calcium Magnesium Direct Bilirubin AST ALT Alkaline Phosphatase Total Creatine Kinase CK-MB (CK-2) CK-MB (CK-2) Rel Index Troponin T C-Reactive Protein Total Protein Albumin Triglycerides Ur Specific [place] Urine WBC (Auto) Miscellaneous Test 04/05/17 04/06/17 04/06/17 17:58 00:16 05:26 WBC RBC Hgb Hct MCV MCH RDW Plt Count Lymph % (Auto) [place] % (Auto) Eos % (Auto) Baso % (Auto) Lymph # Baso # Seg Neutrophils % Lymphocytes % (Manual) Monocytes % (Manual) Nucleated RBC % Seg Neutrophils # Seg Neutrophils # Man Monocytes # (Manual) PT INR Activated Clotting Time POC ABG pH POC ABG pCO2 POC ABG pO2 Sodium Potassium Chloride Carbon Dioxide BUN Creatinine Glucose POC Glucose 130 H 159 H 146 H Calcium Magnesium Direct Bilirubin AST ALT Alkaline Phosphatase Total Creatine Kinase CK-MB (CK-2) CK-MB (CK-2) Rel Index Troponin T C-Reactive Protein Total Protein Albumin Triglycerides Ur Specific [place] Urine WBC (Auto) Miscellaneous Test 04/06/17 04/06/17 04/07/17 13:11 16:54 11:45 WBC RBC Hgb Hct MCV MCH RDW Plt Count Lymph % (Auto) [place] % (Auto) Eos % (Auto) Baso % (Auto) Lymph # Baso # Seg Neutrophils % Lymphocytes % (Manual) Monocytes % (Manual) Nucleated RBC % Seg Neutrophils # Seg Neutrophils # Man Monocytes # (Manual) PT INR Activated Clotting Time POC ABG pH 7.517 H POC ABG pCO2 32.1 L POC ABG pO2 Sodium Potassium Chloride Carbon Dioxide BUN Creatinine Glucose POC Glucose 132 H 123 H Calcium Magnesium Direct Bilirubin AST ALT Alkaline Phosphatase Total Creatine Kinase CK-MB (CK-2) CK-MB (CK-2) Rel Index Troponin T C-Reactive Protein Total Protein Albumin Triglycerides Ur Specific [place] Urine WBC (Auto) Miscellaneous Test 04/07/17 04/07/17 04/07/17 12:51 17:40 23:55 WBC RBC Hgb Hct MCV MCH RDW Plt Count Lymph % (Auto) [place] % (Auto) Eos % (Auto) Baso % (Auto) Lymph # Baso # Seg Neutrophils % Lymphocytes % (Manual) Monocytes % (Manual) Nucleated RBC % Seg Neutrophils # Seg Neutrophils # Man Monocytes # (Manual) PT INR Activated Clotting Time POC ABG pH POC ABG pCO2 POC ABG pO2 Sodium Potassium Chloride Carbon Dioxide BUN Creatinine Glucose POC Glucose 138 H 154 H 143 H Calcium Magnesium Direct Bilirubin AST ALT Alkaline Phosphatase Total Creatine Kinase CK-MB (CK-2) CK-MB (CK-2) Rel Index Troponin T C-Reactive Protein Total Protein Albumin Triglycerides Ur Specific [place] Urine WBC (Auto) Miscellaneous Test 04/08/17 04/08/17 04/08/17 05:27 11:14 17:44 WBC RBC Hgb Hct MCV MCH RDW Plt Count Lymph % (Auto) [place] % (Auto) Eos % (Auto) Baso % (Auto) Lymph # Baso # Seg Neutrophils % Lymphocytes % (Manual) Monocytes % (Manual) Nucleated RBC % Seg Neutrophils # Seg Neutrophils # Man Monocytes # (Manual) PT INR Activated Clotting Time POC ABG pH POC ABG pCO2 POC ABG pO2 Sodium Potassium Chloride Carbon Dioxide BUN Creatinine Glucose POC Glucose 142 H 153 H 129 H Calcium Magnesium Direct Bilirubin AST ALT Alkaline Phosphatase Total Creatine Kinase CK-MB (CK-2) CK-MB (CK-2) Rel Index Troponin T C-Reactive Protein Total Protein Albumin Triglycerides Ur Specific [place] Urine WBC (Auto) Miscellaneous Test 04/09/17 04/09/17 04/09/17 08:20 11:21 17:37 WBC RBC Hgb Hct MCV MCH RDW Plt Count Lymph % (Auto) [place] % (Auto) Eos % (Auto) Baso % (Auto) Lymph # Baso # Seg Neutrophils % Lymphocytes % (Manual) Monocytes % (Manual) Nucleated RBC % Seg Neutrophils # Seg Neutrophils # Man Monocytes # (Manual) PT INR Activated Clotting Time POC ABG pH POC ABG pCO2 POC ABG pO2 Sodium 147 H Potassium Chloride 108.8 H Carbon Dioxide BUN 39 H Creatinine 0.5 L Glucose 138 H POC Glucose 152 H 109 H Calcium Magnesium Direct Bilirubin AST ALT Alkaline Phosphatase Total Creatine Kinase CK-MB (CK-2) CK-MB (CK-2) Rel Index Troponin T C-Reactive Protein Total Protein Albumin Triglycerides Ur Specific [place] Urine WBC (Auto) Miscellaneous Test 04/10/17 04/10/17 04/10/17 00:13 04:16 04:16 WBC RBC Hgb 11.5 L Hct MCV 96 H MCH RDW Plt Count 103 L Lymph % (Auto) 11.1 L [place] % (Auto) Eos % (Auto) Baso % (Auto) Lymph # Baso # Seg Neutrophils % 81.5 H Lymphocytes % (Manual) Monocytes % (Manual) Nucleated RBC % Seg Neutrophils # 8.8 H Seg Neutrophils # Man Monocytes # (Manual) PT INR Activated Clotting Time POC ABG pH POC ABG pCO2 POC ABG pO2 Sodium 148 H Potassium Chloride 109.0 H Carbon Dioxide BUN 36 H Creatinine 0.5 L Glucose 131 H POC Glucose 127 H Calcium 8.1 L Magnesium 2.40 H Direct Bilirubin AST 206 H ALT 228 H Alkaline Phosphatase 178 H Total Creatine Kinase CK-MB (CK-2) CK-MB (CK-2) Rel Index Troponin T C-Reactive Protein Total Protein Albumin 2.8 L Triglycerides Ur Specific [place] Urine WBC (Auto) Miscellaneous Test 04/10/17 04/10/17 04/10/17 06:01 11:57 18:27 WBC RBC Hgb Hct MCV MCH RDW Plt Count Lymph % (Auto) [place] % (Auto) Eos % (Auto) Baso % (Auto) Lymph # Baso # Seg Neutrophils % Lymphocytes % (Manual) Monocytes % (Manual) Nucleated RBC % Seg Neutrophils # Seg Neutrophils # Man Monocytes # (Manual) PT INR Activated Clotting Time POC ABG pH POC ABG pCO2 POC ABG pO2 Sodium Potassium Chloride Carbon Dioxide BUN Creatinine Glucose POC Glucose 108 H 154 H 130 H Calcium Magnesium Direct Bilirubin AST ALT Alkaline Phosphatase Total Creatine Kinase CK-MB (CK-2) CK-MB (CK-2) Rel Index Troponin T C-Reactive Protein Total Protein Albumin Triglycerides Ur Specific [place] Urine WBC (Auto) Miscellaneous Test 04/11/17 04/11/17 04/12/17 12:25 17:10 00:22 WBC RBC Hgb Hct MCV MCH RDW Plt Count Lymph % (Auto) [place] % (Auto) Eos % (Auto) Baso % (Auto) Lymph # Baso # Seg Neutrophils % Lymphocytes % (Manual) Monocytes % (Manual) Nucleated RBC % Seg Neutrophils # Seg Neutrophils # Man Monocytes # (Manual) PT INR Activated Clotting Time POC ABG pH POC ABG pCO2 POC ABG pO2 Sodium Potassium Chloride Carbon Dioxide BUN Creatinine Glucose POC Glucose 107 H 129 H 128 H Calcium Magnesium Direct Bilirubin AST ALT Alkaline Phosphatase Total Creatine Kinase CK-MB (CK-2) CK-MB (CK-2) Rel Index Troponin T C-Reactive Protein Total Protein Albumin Triglycerides Ur Specific [place] Urine WBC (Auto) Miscellaneous Test 04/12/17 04/12/17 04/12/17 05:00 11:57 17:47 WBC RBC Hgb Hct MCV MCH RDW Plt Count Lymph % (Auto) [place] % (Auto) Eos % (Auto) Baso % (Auto) Lymph # Baso # Seg Neutrophils % Lymphocytes % (Manual) Monocytes % (Manual) Nucleated RBC % Seg Neutrophils # Seg Neutrophils # Man Monocytes # (Manual) PT INR Activated Clotting Time POC ABG pH POC ABG pCO2 POC ABG pO2 Sodium Potassium Chloride Carbon Dioxide BUN Creatinine Glucose POC Glucose 140 H 142 H Calcium Magnesium Direct Bilirubin AST 158 H ALT 184 H Alkaline Phosphatase 170 H Total Creatine Kinase CK-MB (CK-2) CK-MB (CK-2) Rel Index Troponin T C-Reactive Protein Total Protein Albumin 2.8 L Triglycerides Ur Specific [place] Urine WBC (Auto) Miscellaneous Test 04/12/17 04/12/17 04/13/17 21:36 21:36 01:37 WBC RBC Hgb Hct MCV MCH RDW Plt Count Lymph % (Auto) [place] % (Auto) Eos % (Auto) Baso % (Auto) Lymph # Baso # Seg Neutrophils % Lymphocytes % (Manual) Monocytes % (Manual) Nucleated RBC % Seg Neutrophils # Seg Neutrophils # Man Monocytes # (Manual) PT INR Activated Clotting Time POC ABG pH POC ABG pCO2 POC ABG pO2 Sodium Potassium Chloride Carbon Dioxide BUN Creatinine Glucose POC Glucose 126 H Calcium Magnesium Direct Bilirubin AST ALT Alkaline Phosphatase Total Creatine Kinase 1404 H CK-MB (CK-2) 8.0 H CK-MB (CK-2) Rel Index Troponin T 0.767 H* C-Reactive Protein Total Protein Albumin Triglycerides Ur Specific [place] Urine WBC (Auto) Miscellaneous Test 04/13/17 04/13/17 04/13/17 04:45 04:52 12:17 WBC RBC Hgb Hct MCV MCH RDW Plt Count Lymph % (Auto) [place] % (Auto) Eos % (Auto) Baso % (Auto) Lymph # Baso # Seg Neutrophils % Lymphocytes % (Manual) Monocytes % (Manual) Nucleated RBC % Seg Neutrophils # Seg Neutrophils # Man Monocytes # (Manual) PT INR Activated Clotting Time POC ABG pH POC ABG pCO2 POC ABG pO2 Sodium 148 H Potassium Chloride 112.8 H Carbon Dioxide BUN 33 H Creatinine 0.4 L Glucose 121 H POC Glucose 126 H 149 H Calcium Magnesium Direct Bilirubin AST 160 H ALT 189 H Alkaline Phosphatase 166 H Total Creatine Kinase CK-MB (CK-2) CK-MB (CK-2) Rel Index Troponin T C-Reactive Protein Total Protein Albumin 2.6 L Triglycerides Ur Specific [place] Urine WBC (Auto) Miscellaneous Test 04/13/17 04/14/17 04/14/17 17:45 00:20 00:45 WBC RBC Hgb Hct MCV MCH RDW Plt Count Lymph % (Auto) [place] % (Auto) Eos % (Auto) Baso % (Auto) Lymph # Baso # Seg Neutrophils % Lymphocytes % (Manual) Monocytes % (Manual) Nucleated RBC % Seg Neutrophils # Seg Neutrophils # Man Monocytes # (Manual) PT INR Activated Clotting Time POC ABG pH POC ABG pCO2 POC ABG pO2 Sodium Potassium Chloride Carbon Dioxide BUN Creatinine Glucose POC Glucose 130 H 144 H 144 H Calcium Magnesium Direct Bilirubin AST ALT Alkaline Phosphatase Total Creatine Kinase CK-MB (CK-2) CK-MB (CK-2) Rel Index Troponin T C-Reactive Protein Total Protein Albumin Triglycerides Ur Specific [place] Urine WBC (Auto) Miscellaneous Test 04/14/17 04/14/17 04/14/17 05:40 11:06 11:31 WBC RBC Hgb Hct MCV MCH RDW Plt Count Lymph % (Auto) [place] % (Auto) Eos % (Auto) Baso % (Auto) Lymph # Baso # Seg Neutrophils % Lymphocytes % (Manual) Monocytes % (Manual) Nucleated RBC % Seg Neutrophils # Seg Neutrophils # Man Monocytes # (Manual) PT INR Activated Clotting Time POC ABG pH POC ABG pCO2 POC ABG pO2 Sodium Potassium Chloride Carbon Dioxide BUN Creatinine Glucose POC Glucose 139 H 123 H Calcium Magnesium Direct Bilirubin AST ALT Alkaline Phosphatase Total Creatine Kinase CK-MB (CK-2) CK-MB (CK-2) Rel Index Troponin T C-Reactive Protein Total Protein Albumin Triglycerides Ur Specific [place] 1.033 H Urine WBC (Auto) > 182.0 H Miscellaneous Test 04/14/17 04/14/17 04/15/17 18:00 23:52 05:15 WBC 12.5 H RBC 3.38 L Hgb 10.6 L Hct 32.7 L MCV 97 H MCH RDW Plt Count 107 L Lymph % (Auto) 8.7 L [place] % (Auto) Eos % (Auto) Baso % (Auto) Lymph # 1.1 L Baso # Seg Neutrophils % 86.1 H Lymphocytes % (Manual) Monocytes % (Manual) Nucleated RBC % Seg Neutrophils # 10.7 H Seg Neutrophils # Man Monocytes # (Manual) PT INR Activated Clotting Time POC ABG pH POC ABG pCO2 POC ABG pO2 Sodium Potassium Chloride Carbon Dioxide BUN Creatinine Glucose POC Glucose 133 H 133 H Calcium Magnesium Direct Bilirubin AST ALT Alkaline Phosphatase Total Creatine Kinase CK-MB (CK-2) CK-MB (CK-2) Rel Index Troponin T C-Reactive Protein Total Protein Albumin Triglycerides Ur Specific [place] Urine WBC (Auto) Miscellaneous Test 04/15/17 04/15/17 04/15/17 05:15 05:25 11:50 WBC RBC Hgb Hct MCV MCH RDW Plt Count Lymph % (Auto) [place] % (Auto) Eos % (Auto) Baso % (Auto) Lymph # Baso # Seg Neutrophils % Lymphocytes % (Manual) Monocytes % (Manual) Nucleated RBC % Seg Neutrophils # Seg Neutrophils # Man Monocytes # (Manual) PT INR Activated Clotting Time POC ABG pH POC ABG pCO2 POC ABG pO2 Sodium 149 H Potassium 3.5 L Chloride 114.1 H Carbon Dioxide 21 L BUN 29 H Creatinine 0.4 L Glucose 128 H POC Glucose 133 H 107 H Calcium 8.3 L Magnesium Direct Bilirubin 0.4 H AST 149 H ALT 182 H Alkaline Phosphatase 143 H Total Creatine Kinase CK-MB (CK-2) CK-MB (CK-2) Rel Index Troponin T C-Reactive Protein Total Protein Albumin 2.5 L Triglycerides Ur Specific [place] Urine WBC (Auto) Miscellaneous Test 04/15/17 04/16/17 04/16/17 16:55 00:02 03:17 WBC RBC 3.39 L Hgb 10.5 L Hct 32.4 L MCV 96 H MCH RDW Plt Count 106 L Lymph % (Auto) 6.7 L [place] % (Auto) Eos % (Auto) Baso % (Auto) Lymph # 0.6 L Baso # Seg Neutrophils % 86.8 H Lymphocytes % (Manual) Monocytes % (Manual) Nucleated RBC % Seg Neutrophils # 8.2 H Seg Neutrophils # Man Monocytes # (Manual) PT INR Activated Clotting Time POC ABG pH POC ABG pCO2 POC ABG pO2 Sodium Potassium Chloride Carbon Dioxide BUN Creatinine Glucose POC Glucose 146 H 148 H Calcium Magnesium Direct Bilirubin AST ALT Alkaline Phosphatase Total Creatine Kinase CK-MB (CK-2) CK-MB (CK-2) Rel Index Troponin T C-Reactive Protein Total Protein Albumin Triglycerides Ur Specific [place] Urine WBC (Auto) Miscellaneous Test 04/16/17 04/16/17 04/16/17 03:17 05:19 11:13 WBC RBC Hgb Hct MCV MCH RDW Plt Count Lymph % (Auto) [place] % (Auto) Eos % (Auto) Baso % (Auto) Lymph # Baso # Seg Neutrophils % Lymphocytes % (Manual) Monocytes % (Manual) Nucleated RBC % Seg Neutrophils # Seg Neutrophils # Man Monocytes # (Manual) PT INR Activated Clotting Time POC ABG pH POC ABG pCO2 POC ABG pO2 Sodium 149 H Potassium Chloride 111.1 H Carbon Dioxide 20 L BUN 27 H Creatinine 0.3 L Glucose 156 H POC Glucose 171 H 169 H Calcium 8.3 L Magnesium Direct Bilirubin AST ALT Alkaline Phosphatase Total Creatine Kinase CK-MB (CK-2) CK-MB (CK-2) Rel Index Troponin T C-Reactive Protein Total Protein Albumin Triglycerides Ur Specific [place] Urine WBC (Auto) Miscellaneous Test 04/16/17 04/17/17 04/17/17 17:03 00:00 05:09 WBC RBC Hgb Hct MCV MCH RDW Plt Count Lymph % (Auto) [place] % (Auto) Eos % (Auto) Baso % (Auto) Lymph # Baso # Seg Neutrophils % Lymphocytes % (Manual) Monocytes % (Manual) Nucleated RBC % Seg Neutrophils # Seg Neutrophils # Man Monocytes # (Manual) PT INR Activated Clotting Time POC ABG pH POC ABG pCO2 POC ABG pO2 Sodium Potassium Chloride Carbon Dioxide BUN Creatinine Glucose POC Glucose 151 H 165 H 145 H Calcium Magnesium Direct Bilirubin AST ALT Alkaline Phosphatase Total Creatine Kinase CK-MB (CK-2) CK-MB (CK-2) Rel Index Troponin T C-Reactive Protein Total Protein Albumin Triglycerides Ur Specific [place] Urine WBC (Auto) Miscellaneous Test 04/17/17 04/17/17 04/18/17 11:38 17:47 00:01 WBC RBC Hgb Hct MCV MCH RDW Plt Count Lymph % (Auto) [place] % (Auto) Eos % (Auto) Baso % (Auto) Lymph # Baso # Seg Neutrophils % Lymphocytes % (Manual) Monocytes % (Manual) Nucleated RBC % Seg Neutrophils # Seg Neutrophils # Man Monocytes # (Manual) PT INR Activated Clotting Time POC ABG pH POC ABG pCO2 POC ABG pO2 Sodium Potassium Chloride Carbon Dioxide BUN Creatinine Glucose POC Glucose 170 H 161 H 131 H Calcium Magnesium Direct Bilirubin AST ALT Alkaline Phosphatase Total Creatine Kinase CK-MB (CK-2) CK-MB (CK-2) Rel Index Troponin T C-Reactive Protein Total Protein Albumin Triglycerides Ur Specific [place] Urine WBC (Auto) Miscellaneous Test 04/18/17 04/18/17 04/18/17 03:55 03:55 05:30 WBC RBC 3.05 L Hgb 9.8 L Hct 29.0 L MCV 95 H MCH RDW Plt Count 113 L Lymph % (Auto) [place] % (Auto) Eos % (Auto) 5.3 H Baso % (Auto) Lymph # Baso # Seg Neutrophils % 71.5 H Lymphocytes % (Manual) Monocytes % (Manual) Nucleated RBC % Seg Neutrophils # Seg Neutrophils # Man Monocytes # (Manual) PT INR Activated Clotting Time POC ABG pH 7.460 H POC ABG pCO2 30.8 L POC ABG pO2 129 H Sodium Potassium Chloride Carbon Dioxide 21 L BUN 25 H Creatinine 0.4 L Glucose 123 H POC Glucose Calcium 8.3 L Magnesium Direct Bilirubin AST ALT Alkaline Phosphatase Total Creatine Kinase CK-MB (CK-2) CK-MB (CK-2) Rel Index Troponin T C-Reactive Protein Total Protein Albumin Triglycerides Ur Specific [place] Urine WBC (Auto) Miscellaneous Test 04/18/17 04/18/17 04/19/17 17:10 23:40 04:36 WBC RBC 3.21 L Hgb 10.2 L Hct 30.4 L MCV 95 H MCH RDW Plt Count 131 L Lymph % (Auto) 12.1 L [place] % (Auto) Eos % (Auto) 4.7 H Baso % (Auto) 2.4 H Lymph # 0.9 L Baso # 0.2 H Seg Neutrophils % 75.0 H Lymphocytes % (Manual) Monocytes % (Manual) Nucleated RBC % Seg Neutrophils # Seg Neutrophils # Man Monocytes # (Manual) PT INR Activated Clotting Time POC ABG pH POC ABG pCO2 POC ABG pO2 Sodium Potassium Chloride Carbon Dioxide BUN Creatinine Glucose POC Glucose 135 H 157 H Calcium Magnesium Direct Bilirubin AST ALT Alkaline Phosphatase Total Creatine Kinase CK-MB (CK-2) CK-MB (CK-2) Rel Index Troponin T C-Reactive Protein Total Protein Albumin Triglycerides Ur Specific [place] Urine WBC (Auto) Miscellaneous Test 04/19/17 04/19/17 04/19/17 04:36 05:12 06:50 WBC RBC Hgb Hct MCV MCH RDW Plt Count Lymph % (Auto) [place] % (Auto) Eos % (Auto) Baso % (Auto) Lymph # Baso # Seg Neutrophils % Lymphocytes % (Manual) Monocytes % (Manual) Nucleated RBC % Seg Neutrophils # Seg Neutrophils # Man Monocytes # (Manual) PT INR Activated Clotting Time POC ABG pH 7.516 H POC ABG pCO2 28.0 L POC ABG pO2 Sodium Potassium Chloride Carbon Dioxide 21 L BUN 23 H Creatinine 0.2 L Glucose 137 H POC Glucose 131 H Calcium 7.9 L Magnesium Direct Bilirubin AST ALT Alkaline Phosphatase Total Creatine Kinase CK-MB (CK-2) CK-MB (CK-2) Rel Index Troponin T C-Reactive Protein Total Protein Albumin Triglycerides Ur Specific [place] Urine WBC (Auto) Miscellaneous Test 04/19/17 04/19/17 04/20/17 12:36 17:42 00:12 WBC RBC Hgb Hct MCV MCH RDW Plt Count Lymph % (Auto) [place] % (Auto) Eos % (Auto) Baso % (Auto) Lymph # Baso # Seg Neutrophils % Lymphocytes % (Manual) Monocytes % (Manual) Nucleated RBC % Seg Neutrophils # Seg Neutrophils # Man Monocytes # (Manual) PT INR Activated Clotting Time POC ABG pH POC ABG pCO2 POC ABG pO2 Sodium Potassium Chloride Carbon Dioxide BUN Creatinine Glucose POC Glucose 128 H 140 H 132 H Calcium Magnesium Direct Bilirubin AST ALT Alkaline Phosphatase Total Creatine Kinase CK-MB (CK-2) CK-MB (CK-2) Rel Index Troponin T C-Reactive Protein Total Protein Albumin Triglycerides Ur Specific [place] Urine WBC (Auto) Miscellaneous Test 04/20/17 04/20/17 04/20/17 03:35 03:35 05:10 WBC RBC 3.34 L Hgb 10.4 L Hct 31.6 L MCV 95 H MCH RDW Plt Count Lymph % (Auto) 12.9 L [place] % (Auto) Eos % (Auto) Baso % (Auto) Lymph # Baso # Seg Neutrophils % 77.3 H Lymphocytes % (Manual) Monocytes % (Manual) Nucleated RBC % Seg Neutrophils # Seg Neutrophils # Man Monocytes # (Manual) PT INR Activated Clotting Time POC ABG pH POC ABG pCO2 POC ABG pO2 Sodium Potassium Chloride Carbon Dioxide BUN Creatinine 0.3 L Glucose 155 H POC Glucose 135 H Calcium 7.8 L Magnesium Direct Bilirubin AST ALT Alkaline Phosphatase Total Creatine Kinase CK-MB (CK-2) CK-MB (CK-2) Rel Index Troponin T C-Reactive Protein Total Protein Albumin Triglycerides Ur Specific [place] Urine WBC (Auto) Miscellaneous Test 04/20/17 04/20/17 04/21/17 12:49 18:21 00:05 WBC RBC Hgb Hct MCV MCH RDW Plt Count Lymph % (Auto) [place] % (Auto) Eos % (Auto) Baso % (Auto) Lymph # Baso # Seg Neutrophils % Lymphocytes % (Manual) Monocytes % (Manual) Nucleated RBC % Seg Neutrophils # Seg Neutrophils # Man Monocytes # (Manual) PT INR Activated Clotting Time POC ABG pH POC ABG pCO2 POC ABG pO2 Sodium Potassium Chloride Carbon Dioxide BUN Creatinine Glucose POC Glucose 155 H 165 H 141 H Calcium Magnesium Direct Bilirubin AST ALT Alkaline Phosphatase Total Creatine Kinase CK-MB (CK-2) CK-MB (CK-2) Rel Index Troponin T C-Reactive Protein Total Protein Albumin Triglycerides Ur Specific [place] Urine WBC (Auto) Miscellaneous Test 04/21/17 04/21/17 04/21/17 06:00 12:11 17:04 WBC RBC Hgb Hct MCV MCH RDW Plt Count Lymph % (Auto) [place] % (Auto) Eos % (Auto) Baso % (Auto) Lymph # Baso # Seg Neutrophils % Lymphocytes % (Manual) Monocytes % (Manual) Nucleated RBC % Seg Neutrophils # Seg Neutrophils # Man Monocytes # (Manual) PT INR Activated Clotting Time POC ABG pH POC ABG pCO2 POC ABG pO2 Sodium Potassium Chloride Carbon Dioxide BUN Creatinine Glucose POC Glucose 152 H 165 H 156 H Calcium Magnesium Direct Bilirubin AST ALT Alkaline Phosphatase Total Creatine Kinase CK-MB (CK-2) CK-MB (CK-2) Rel Index Troponin T C-Reactive Protein Total Protein Albumin Triglycerides Ur Specific [place] Urine WBC (Auto) Miscellaneous Test 04/21/17 04/21/17 04/22/17 22:00 23:59 05:49 WBC RBC Hgb Hct MCV MCH RDW Plt Count Lymph % (Auto) [place] % (Auto) Eos % (Auto) Baso % (Auto) Lymph # Baso # Seg Neutrophils % Lymphocytes % (Manual) Monocytes % (Manual) Nucleated RBC % Seg Neutrophils # Seg Neutrophils # Man Monocytes # (Manual) PT INR Activated Clotting Time POC ABG pH POC ABG pCO2 POC ABG pO2 Sodium Potassium Chloride Carbon Dioxide BUN Creatinine Glucose POC Glucose 166 H 173 H Calcium Magnesium Direct Bilirubin AST ALT Alkaline Phosphatase Total Creatine Kinase CK-MB (CK-2) CK-MB (CK-2) Rel Index Troponin T C-Reactive Protein Total Protein Albumin Triglycerides Ur Specific [place] Urine WBC (Auto) 10.0 H Miscellaneous Test 04/22/17 04/22/17 04/23/17 11:11 18:04 00:37 WBC RBC Hgb Hct MCV MCH RDW Plt Count Lymph % (Auto) [place] % (Auto) Eos % (Auto) Baso % (Auto) Lymph # Baso # Seg Neutrophils % Lymphocytes % (Manual) Monocytes % (Manual) Nucleated RBC % Seg Neutrophils # Seg Neutrophils # Man Monocytes # (Manual) PT INR Activated Clotting Time POC ABG pH POC ABG pCO2 POC ABG pO2 Sodium Potassium Chloride Carbon Dioxide BUN Creatinine Glucose POC Glucose 172 H 140 H 135 H Calcium Magnesium Direct Bilirubin AST ALT Alkaline Phosphatase Total Creatine Kinase CK-MB (CK-2) CK-MB (CK-2) Rel Index Troponin T C-Reactive Protein Total Protein Albumin Triglycerides Ur Specific [place] Urine WBC (Auto) Miscellaneous Test 04/23/17 04/23/17 04/23/17 05:33 06:20 11:10 WBC RBC 3.19 L Hgb 9.9 L Hct 30.0 L MCV MCH RDW Plt Count Lymph % (Auto) 8.0 L [place] % (Auto) Eos % (Auto) Baso % (Auto) Lymph # 0.8 L Baso # Seg Neutrophils % 84.5 H Lymphocytes % (Manual) Monocytes % (Manual) Nucleated RBC % Seg Neutrophils # 8.2 H Seg Neutrophils # Man Monocytes # (Manual) PT INR Activated Clotting Time POC ABG pH POC ABG pCO2 POC ABG pO2 Sodium Potassium Chloride Carbon Dioxide BUN Creatinine Glucose POC Glucose 134 H 134 H Calcium Magnesium Direct Bilirubin AST ALT Alkaline Phosphatase Total Creatine Kinase CK-MB (CK-2) CK-MB (CK-2) Rel Index Troponin T C-Reactive Protein Total Protein Albumin Triglycerides Ur Specific [place] Urine WBC (Auto) Miscellaneous Test 04/23/17 04/24/17 04/24/17 17:26 00:53 06:46 WBC RBC Hgb Hct MCV MCH RDW Plt Count Lymph % (Auto) [place] % (Auto) Eos % (Auto) Baso % (Auto) Lymph # Baso # Seg Neutrophils % Lymphocytes % (Manual) Monocytes % (Manual) Nucleated RBC % Seg Neutrophils # Seg Neutrophils # Man Monocytes # (Manual) PT INR Activated Clotting Time POC ABG pH POC ABG pCO2 POC ABG pO2 Sodium Potassium Chloride Carbon Dioxide BUN Creatinine Glucose POC Glucose 164 H 146 H 125 H Calcium Magnesium Direct Bilirubin AST ALT Alkaline Phosphatase Total Creatine Kinase CK-MB (CK-2) CK-MB (CK-2) Rel Index Troponin T C-Reactive Protein Total Protein Albumin Triglycerides Ur Specific [place] Urine WBC (Auto) Miscellaneous Test 04/24/17 04/24/17 04/24/17 11:55 17:50 23:36 WBC RBC Hgb Hct MCV MCH RDW Plt Count Lymph % (Auto) [place] % (Auto) Eos % (Auto) Baso % (Auto) Lymph # Baso # Seg Neutrophils % Lymphocytes % (Manual) Monocytes % (Manual) Nucleated RBC % Seg Neutrophils # Seg Neutrophils # Man Monocytes # (Manual) PT INR Activated Clotting Time POC ABG pH POC ABG pCO2 POC ABG pO2 Sodium Potassium Chloride Carbon Dioxide BUN Creatinine Glucose POC Glucose 156 H 146 H 131 H Calcium Magnesium Direct Bilirubin AST ALT Alkaline Phosphatase Total Creatine Kinase CK-MB (CK-2) CK-MB (CK-2) Rel Index Troponin T C-Reactive Protein Total Protein Albumin Triglycerides Ur Specific [place] Urine WBC (Auto) Miscellaneous Test 04/25/17 04/25/17 04/25/17 04:51 05:16 07:07 WBC RBC Hgb Hct MCV MCH RDW Plt Count Lymph % (Auto) [place] % (Auto) Eos % (Auto) Baso % (Auto) Lymph # Baso # Seg Neutrophils % Lymphocytes % (Manual) Monocytes % (Manual) Nucleated RBC % Seg Neutrophils # Seg Neutrophils # Man Monocytes # (Manual) PT INR Activated Clotting Time POC ABG pH POC ABG pCO2 POC ABG pO2 Sodium Potassium Chloride Carbon Dioxide BUN Creatinine Glucose POC Glucose 139 H Calcium Magnesium Direct Bilirubin AST 105 H ALT 204 H Alkaline Phosphatase 189 H Total Creatine Kinase CK-MB (CK-2) CK-MB (CK-2) Rel Index Troponin T C-Reactive Protein Total Protein Albumin 2.4 L Triglycerides Ur Specific [place] Urine WBC (Auto) Miscellaneous Test Flexitest 1 H 04/25/17 04/25/17 04/25/17 12:29 17:23 23:32 WBC RBC Hgb Hct MCV MCH RDW Plt Count Lymph % (Auto) [place] % (Auto) Eos % (Auto) Baso % (Auto) Lymph # Baso # Seg Neutrophils % Lymphocytes % (Manual) Monocytes % (Manual) Nucleated RBC % Seg Neutrophils # Seg Neutrophils # Man Monocytes # (Manual) PT INR Activated Clotting Time POC ABG pH POC ABG pCO2 POC ABG pO2 Sodium Potassium Chloride Carbon Dioxide BUN Creatinine Glucose POC Glucose 132 H 133 H 128 H Calcium Magnesium Direct Bilirubin AST ALT Alkaline Phosphatase Total Creatine Kinase CK-MB (CK-2) CK-MB (CK-2) Rel Index Troponin T C-Reactive Protein Total Protein Albumin Triglycerides Ur Specific [place] Urine WBC (Auto) Miscellaneous Test 04/26/17 04/26/17 04/26/17 05:24 11:28 17:09 WBC RBC Hgb Hct MCV MCH RDW Plt Count Lymph % (Auto) [place] % (Auto) Eos % (Auto) Baso % (Auto) Lymph # Baso # Seg Neutrophils % Lymphocytes % (Manual) Monocytes % (Manual) Nucleated RBC % Seg Neutrophils # Seg Neutrophils # Man Monocytes # (Manual) PT INR Activated Clotting Time POC ABG pH POC ABG pCO2 POC ABG pO2 Sodium Potassium Chloride Carbon Dioxide BUN Creatinine Glucose POC Glucose 132 H 146 H 141 H Calcium Magnesium Direct Bilirubin AST ALT Alkaline Phosphatase Total Creatine Kinase CK-MB (CK-2) CK-MB (CK-2) Rel Index Troponin T C-Reactive Protein Total Protein Albumin Triglycerides Ur Specific [place] Urine WBC (Auto) Miscellaneous Test 04/26/17 04/27/17 04/27/17 23:52 05:40 05:40 WBC RBC 3.22 L Hgb 10.0 L Hct 29.9 L MCV MCH RDW Plt Count Lymph % (Auto) [place] % (Auto) Eos % (Auto) Baso % (Auto) Lymph # Baso # Seg Neutrophils % 76.6 H Lymphocytes % (Manual) Monocytes % (Manual) Nucleated RBC % Seg Neutrophils # Seg Neutrophils # Man Monocytes # (Manual) PT INR Activated Clotting Time POC ABG pH POC ABG pCO2 POC ABG pO2 Sodium Potassium Chloride Carbon Dioxide BUN Creatinine Glucose POC Glucose 140 H Calcium Magnesium Direct Bilirubin AST 66 H ALT 137 H Alkaline Phosphatase 169 H Total Creatine Kinase CK-MB (CK-2) CK-MB (CK-2) Rel Index Troponin T C-Reactive Protein Total Protein 6.2 L Albumin 2.6 L Triglycerides Ur Specific [place] Urine WBC (Auto) Miscellaneous Test 04/27/17 04/27/17 04/27/17 05:40 06:10 11:13 WBC RBC Hgb Hct MCV MCH RDW Plt Count Lymph % (Auto) [place] % (Auto) Eos % (Auto) Baso % (Auto) Lymph # Baso # Seg Neutrophils % Lymphocytes % (Manual) Monocytes % (Manual) Nucleated RBC % Seg Neutrophils # Seg Neutrophils # Man Monocytes # (Manual) PT INR Activated Clotting Time POC ABG pH POC ABG pCO2 POC ABG pO2 Sodium Potassium Chloride Carbon Dioxide BUN Creatinine 0.2 L Glucose 139 H POC Glucose 130 H 151 H Calcium Magnesium Direct Bilirubin AST ALT Alkaline Phosphatase Total Creatine Kinase CK-MB (CK-2) CK-MB (CK-2) Rel Index Troponin T C-Reactive Protein Total Protein Albumin Triglycerides Ur Specific [place] Urine WBC (Auto) Miscellaneous Test 04/27/17 04/27/17 04/28/17 17:37 23:19 05:24 WBC RBC Hgb Hct MCV MCH RDW Plt Count Lymph % (Auto) [place] % (Auto) Eos % (Auto) Baso % (Auto) Lymph # Baso # Seg Neutrophils % Lymphocytes % (Manual) Monocytes % (Manual) Nucleated RBC % Seg Neutrophils # Seg Neutrophils # Man Monocytes # (Manual) PT INR Activated Clotting Time POC ABG pH POC ABG pCO2 POC ABG pO2 Sodium Potassium Chloride Carbon Dioxide BUN Creatinine Glucose POC Glucose 159 H 130 H 132 H Calcium Magnesium Direct Bilirubin AST ALT Alkaline Phosphatase Total Creatine Kinase CK-MB (CK-2) CK-MB (CK-2) Rel Index Troponin T C-Reactive Protein Total Protein Albumin Triglycerides Ur Specific [place] Urine WBC (Auto) Miscellaneous Test 04/28/17 04/28/17 04/28/17 11:15 17:38 23:23 WBC RBC Hgb Hct MCV MCH RDW Plt Count Lymph % (Auto) [place] % (Auto) Eos % (Auto) Baso % (Auto) Lymph # Baso # Seg Neutrophils % Lymphocytes % (Manual) Monocytes % (Manual) Nucleated RBC % Seg Neutrophils # Seg Neutrophils # Man Monocytes # (Manual) PT INR Activated Clotting Time POC ABG pH POC ABG pCO2 POC ABG pO2 Sodium Potassium Chloride Carbon Dioxide BUN Creatinine Glucose POC Glucose 162 H 133 H 138 H Calcium Magnesium Direct Bilirubin AST ALT Alkaline Phosphatase Total Creatine Kinase CK-MB (CK-2) CK-MB (CK-2) Rel Index Troponin T C-Reactive Protein Total Protein Albumin Triglycerides Ur Specific [place] Urine WBC (Auto) Miscellaneous Test 04/29/17 04/29/17 04/29/17 05:15 12:55 17:21 WBC RBC Hgb Hct MCV MCH RDW Plt Count Lymph % (Auto) [place] % (Auto) Eos % (Auto) Baso % (Auto) Lymph # Baso # Seg Neutrophils % Lymphocytes % (Manual) Monocytes % (Manual) Nucleated RBC % Seg Neutrophils # Seg Neutrophils # Man Monocytes # (Manual) PT INR Activated Clotting Time POC ABG pH POC ABG pCO2 POC ABG pO2 Sodium Potassium Chloride Carbon Dioxide BUN Creatinine Glucose POC Glucose 135 H 127 H 138 H Calcium Magnesium Direct Bilirubin AST ALT Alkaline Phosphatase Total Creatine Kinase CK-MB (CK-2) CK-MB (CK-2) Rel Index Troponin T C-Reactive Protein Total Protein Albumin Triglycerides Ur Specific [place] Urine WBC (Auto) Miscellaneous Test 04/29/17 04/30/17 04/30/17 23:52 04:55 12:22 WBC RBC Hgb Hct MCV MCH RDW Plt Count Lymph % (Auto) [place] % (Auto) Eos % (Auto) Baso % (Auto) Lymph # Baso # Seg Neutrophils % Lymphocytes % (Manual) Monocytes % (Manual) Nucleated RBC % Seg Neutrophils # Seg Neutrophils # Man Monocytes # (Manual) PT INR Activated Clotting Time POC ABG pH POC ABG pCO2 POC ABG pO2 Sodium Potassium Chloride Carbon Dioxide BUN Creatinine Glucose POC Glucose 142 H 146 H 132 H Calcium Magnesium Direct Bilirubin AST ALT Alkaline Phosphatase Total Creatine Kinase CK-MB (CK-2) CK-MB (CK-2) Rel Index Troponin T C-Reactive Protein Total Protein Albumin Triglycerides Ur Specific [place] Urine WBC (Auto) Miscellaneous Test 04/30/17 04/30/17 04/30/17 14:25 17:47 18:20 WBC RBC Hgb Hct MCV MCH RDW Plt Count Lymph % (Auto) [place] % (Auto) Eos % (Auto) Baso % (Auto) Lymph # Baso # Seg Neutrophils % Lymphocytes % (Manual) Monocytes % (Manual) Nucleated RBC % Seg Neutrophils # Seg Neutrophils # Man Monocytes # (Manual) PT INR Activated Clotting Time POC ABG pH 7.551 H POC ABG pCO2 32.7 L POC ABG pO2 Sodium Potassium Chloride Carbon Dioxide BUN 21 H Creatinine 0.2 L Glucose 141 H POC Glucose 139 H Calcium Magnesium Direct Bilirubin AST ALT Alkaline Phosphatase Total Creatine Kinase CK-MB (CK-2) CK-MB (CK-2) Rel Index Troponin T C-Reactive Protein Total Protein Albumin Triglycerides Ur Specific [place] Urine WBC (Auto) Miscellaneous Test 05/01/17 05/01/17 05/01/17 01:26 05:30 05:30 WBC RBC 3.49 L Hgb 10.3 L Hct 31.9 L MCV MCH RDW Plt Count Lymph % (Auto) [place] % (Auto) 8.1 H Eos % (Auto) Baso % (Auto) Lymph # Baso # Seg Neutrophils % 71.3 H Lymphocytes % (Manual) Monocytes % (Manual) Nucleated RBC % Seg Neutrophils # Seg Neutrophils # Man Monocytes # (Manual) PT INR Activated Clotting Time POC ABG pH POC ABG pCO2 POC ABG pO2 Sodium 136 L Potassium Chloride 97.6 L Carbon Dioxide BUN Creatinine 0.2 L Glucose 123 H POC Glucose 116 H Calcium Magnesium Direct Bilirubin AST 71 H ALT 125 H Alkaline Phosphatase 158 H Total Creatine Kinase CK-MB (CK-2) CK-MB (CK-2) Rel Index Troponin T C-Reactive Protein Total Protein Albumin 2.6 L Triglycerides Ur Specific [place] Urine WBC (Auto) Miscellaneous Test 05/01/17 05/01/17 05/02/17 11:59 17:23 00:08 WBC RBC Hgb Hct MCV MCH RDW Plt Count Lymph % (Auto) [place] % (Auto) Eos % (Auto) Baso % (Auto) Lymph # Baso # Seg Neutrophils % Lymphocytes % (Manual) Monocytes % (Manual) Nucleated RBC % Seg Neutrophils # Seg Neutrophils # Man Monocytes # (Manual) PT INR Activated Clotting Time POC ABG pH POC ABG pCO2 POC ABG pO2 Sodium Potassium Chloride Carbon Dioxide BUN Creatinine Glucose POC Glucose 118 H 144 H 122 H Calcium Magnesium Direct Bilirubin AST ALT Alkaline Phosphatase Total Creatine Kinase CK-MB (CK-2) CK-MB (CK-2) Rel Index Troponin T C-Reactive Protein Total Protein Albumin Triglycerides Ur Specific [place] Urine WBC (Auto) Miscellaneous Test 05/02/17 05/02/17 05/02/17 05:50 11:21 17:48 WBC RBC Hgb Hct MCV MCH RDW Plt Count Lymph % (Auto) [place] % (Auto) Eos % (Auto) Baso % (Auto) Lymph # Baso # Seg Neutrophils % Lymphocytes % (Manual) Monocytes % (Manual) Nucleated RBC % Seg Neutrophils # Seg Neutrophils # Man Monocytes # (Manual) PT INR Activated Clotting Time POC ABG pH POC ABG pCO2 POC ABG pO2 Sodium Potassium Chloride Carbon Dioxide BUN Creatinine Glucose POC Glucose 120 H 121 H 140 H Calcium Magnesium Direct Bilirubin AST ALT Alkaline Phosphatase Total Creatine Kinase CK-MB (CK-2) CK-MB (CK-2) Rel Index Troponin T C-Reactive Protein Total Protein Albumin Triglycerides Ur Specific [place] Urine WBC (Auto) Miscellaneous Test 05/02/17 05/03/17 05/03/17 23:12 05:35 11:52 WBC RBC Hgb Hct MCV MCH RDW Plt Count Lymph % (Auto) [place] % (Auto) Eos % (Auto) Baso % (Auto) Lymph # Baso # Seg Neutrophils % Lymphocytes % (Manual) Monocytes % (Manual) Nucleated RBC % Seg Neutrophils # Seg Neutrophils # Man Monocytes # (Manual) PT INR Activated Clotting Time POC ABG pH POC ABG pCO2 POC ABG pO2 Sodium Potassium Chloride Carbon Dioxide BUN Creatinine Glucose POC Glucose 128 H 113 H 126 H Calcium Magnesium Direct Bilirubin AST ALT Alkaline Phosphatase Total Creatine Kinase CK-MB (CK-2) CK-MB (CK-2) Rel Index Troponin T C-Reactive Protein Total Protein Albumin Triglycerides Ur Specific [place] Urine WBC (Auto) Miscellaneous Test 05/03/17 05/03/17 05/04/17 17:29 23:26 04:55 WBC RBC Hgb Hct MCV MCH RDW Plt Count Lymph % (Auto) [place] % (Auto) Eos % (Auto) Baso % (Auto) Lymph # Baso # Seg Neutrophils % Lymphocytes % (Manual) Monocytes % (Manual) Nucleated RBC % Seg Neutrophils # Seg Neutrophils # Man Monocytes # (Manual) PT INR Activated Clotting Time POC ABG pH POC ABG pCO2 POC ABG pO2 Sodium Potassium Chloride Carbon Dioxide BUN Creatinine Glucose POC Glucose 141 H 129 H 126 H Calcium Magnesium Direct Bilirubin AST ALT Alkaline Phosphatase Total Creatine Kinase CK-MB (CK-2) CK-MB (CK-2) Rel Index Troponin T C-Reactive Protein Total Protein Albumin Triglycerides Ur Specific [place] Urine WBC (Auto) Miscellaneous Test 05/04/17 05/04/17 05/05/17 12:09 17:46 00:06 WBC RBC Hgb Hct MCV MCH RDW Plt Count Lymph % (Auto) [place] % (Auto) Eos % (Auto) Baso % (Auto) Lymph # Baso # Seg Neutrophils % Lymphocytes % (Manual) Monocytes % (Manual) Nucleated RBC % Seg Neutrophils # Seg Neutrophils # Man Monocytes # (Manual) PT INR Activated Clotting Time POC ABG pH POC ABG pCO2 POC ABG pO2 Sodium Potassium Chloride Carbon Dioxide BUN Creatinine Glucose POC Glucose 125 H 125 H 110 H Calcium Magnesium Direct Bilirubin AST ALT Alkaline Phosphatase Total Creatine Kinase CK-MB (CK-2) CK-MB (CK-2) Rel Index Troponin T C-Reactive Protein Total Protein Albumin Triglycerides Ur Specific [place] Urine WBC (Auto) Miscellaneous Test 05/05/17 05/05/17 05/05/17 05:48 11:41 16:19 WBC RBC Hgb Hct MCV MCH RDW Plt Count Lymph % (Auto) [place] % (Auto) Eos % (Auto) Baso % (Auto) Lymph # Baso # Seg Neutrophils % Lymphocytes % (Manual) Monocytes % (Manual) Nucleated RBC % Seg Neutrophils # Seg Neutrophils # Man Monocytes # (Manual) PT INR Activated Clotting Time POC ABG pH POC ABG pCO2 POC ABG pO2 Sodium Potassium Chloride Carbon Dioxide BUN Creatinine Glucose POC Glucose 124 H 122 H 120 H Calcium Magnesium Direct Bilirubin AST ALT Alkaline Phosphatase Total Creatine Kinase CK-MB (CK-2) CK-MB (CK-2) Rel Index Troponin T C-Reactive Protein Total Protein Albumin Triglycerides Ur Specific [place] Urine WBC (Auto) Miscellaneous Test 05/06/17 05/06/17 05/06/17 00:16 05:47 11:42 WBC RBC Hgb Hct MCV MCH RDW Plt Count Lymph % (Auto) [place] % (Auto) Eos % (Auto) Baso % (Auto) Lymph # Baso # Seg Neutrophils % Lymphocytes % (Manual) Monocytes % (Manual) Nucleated RBC % Seg Neutrophils # Seg Neutrophils # Man Monocytes # (Manual) PT INR Activated Clotting Time POC ABG pH POC ABG pCO2 POC ABG pO2 Sodium Potassium Chloride Carbon Dioxide BUN Creatinine Glucose POC Glucose 110 H 142 H 120 H Calcium Magnesium Direct Bilirubin AST ALT Alkaline Phosphatase Total Creatine Kinase CK-MB (CK-2) CK-MB (CK-2) Rel Index Troponin T C-Reactive Protein Total Protein Albumin Triglycerides Ur Specific [place] Urine WBC (Auto) Miscellaneous Test 05/06/17 05/07/17 05/07/17 17:46 00:07 05:28 WBC RBC Hgb Hct MCV MCH RDW Plt Count Lymph % (Auto) [place] % (Auto) Eos % (Auto) Baso % (Auto) Lymph # Baso # Seg Neutrophils % Lymphocytes % (Manual) Monocytes % (Manual) Nucleated RBC % Seg Neutrophils # Seg Neutrophils # Man Monocytes # (Manual) PT INR Activated Clotting Time POC ABG pH POC ABG pCO2 POC ABG pO2 Sodium Potassium Chloride Carbon Dioxide BUN Creatinine Glucose POC Glucose 127 H 145 H 124 H Calcium Magnesium Direct Bilirubin AST ALT Alkaline Phosphatase Total Creatine Kinase CK-MB (CK-2) CK-MB (CK-2) Rel Index Troponin T C-Reactive Protein Total Protein Albumin Triglycerides Ur Specific [place] Urine WBC (Auto) Miscellaneous Test 05/07/17 05/07/17 05/08/17 11:17 17:14 00:03 WBC RBC Hgb Hct MCV MCH RDW Plt Count Lymph % (Auto) [place] % (Auto) Eos % (Auto) Baso % (Auto) Lymph # Baso # Seg Neutrophils % Lymphocytes % (Manual) Monocytes % (Manual) Nucleated RBC % Seg Neutrophils # Seg Neutrophils # Man Monocytes # (Manual) PT INR Activated Clotting Time POC ABG pH POC ABG pCO2 POC ABG pO2 Sodium Potassium Chloride Carbon Dioxide BUN Creatinine Glucose POC Glucose 144 H 125 H 122 H Calcium Magnesium Direct Bilirubin AST ALT Alkaline Phosphatase Total Creatine Kinase CK-MB (CK-2) CK-MB (CK-2) Rel Index Troponin T C-Reactive Protein Total Protein Albumin Triglycerides Ur Specific [place] Urine WBC (Auto) Miscellaneous Test 05/08/17 05/08/17 05/08/17 05:43 12:07 18:02 WBC RBC Hgb Hct MCV MCH RDW Plt Count Lymph % (Auto) [place] % (Auto) Eos % (Auto) Baso % (Auto) Lymph # Baso # Seg Neutrophils % Lymphocytes % (Manual) Monocytes % (Manual) Nucleated RBC % Seg Neutrophils # Seg Neutrophils # Man Monocytes # (Manual) PT INR Activated Clotting Time POC ABG pH POC ABG pCO2 POC ABG pO2 Sodium Potassium Chloride Carbon Dioxide BUN Creatinine Glucose POC Glucose 117 H 114 H 129 H Calcium Magnesium Direct Bilirubin AST ALT Alkaline Phosphatase Total Creatine Kinase CK-MB (CK-2) CK-MB (CK-2) Rel Index Troponin T C-Reactive Protein Total Protein Albumin Triglycerides Ur Specific [place] Urine WBC (Auto) Miscellaneous Test 05/08/17 05/09/17 05/09/17 23:53 04:19 05:14 WBC RBC Hgb Hct MCV MCH RDW Plt Count Lymph % (Auto) [place] % (Auto) Eos % (Auto) Baso % (Auto) Lymph # Baso # Seg Neutrophils % Lymphocytes % (Manual) Monocytes % (Manual) Nucleated RBC % Seg Neutrophils # Seg Neutrophils # Man Monocytes # (Manual) PT INR Activated Clotting Time POC ABG pH 7.524 H POC ABG pCO2 34.7 L POC ABG pO2 107 H Sodium Potassium Chloride Carbon Dioxide BUN Creatinine Glucose POC Glucose 125 H 118 H Calcium Magnesium Direct Bilirubin AST ALT Alkaline Phosphatase Total Creatine Kinase CK-MB (CK-2) CK-MB (CK-2) Rel Index Troponin T C-Reactive Protein Total Protein Albumin Triglycerides Ur Specific [place] Urine WBC (Auto) Miscellaneous Test 05/10/17 05/11/17 05/11/17 23:54 05:48 23:50 WBC RBC Hgb Hct MCV MCH RDW Plt Count Lymph % (Auto) [place] % (Auto) Eos % (Auto) Baso % (Auto) Lymph # Baso # Seg Neutrophils % Lymphocytes % (Manual) Monocytes % (Manual) Nucleated RBC % Seg Neutrophils # Seg Neutrophils # Man Monocytes # (Manual) PT INR Activated Clotting Time POC ABG pH POC ABG pCO2 POC ABG pO2 Sodium Potassium Chloride Carbon Dioxide BUN Creatinine Glucose POC Glucose 126 H 137 H 130 H Calcium Magnesium Direct Bilirubin AST ALT Alkaline Phosphatase Total Creatine Kinase CK-MB (CK-2) CK-MB (CK-2) Rel Index Troponin T C-Reactive Protein Total Protein Albumin Triglycerides Ur Specific [place] Urine WBC (Auto) Miscellaneous Test 05/12/17 05/12/17 05/12/17 05:48 11:33 18:00 WBC RBC Hgb Hct MCV MCH RDW Plt Count Lymph % (Auto) [place] % (Auto) Eos % (Auto) Baso % (Auto) Lymph # Baso # Seg Neutrophils % Lymphocytes % (Manual) Monocytes % (Manual) Nucleated RBC % Seg Neutrophils # Seg Neutrophils # Man Monocytes # (Manual) PT INR Activated Clotting Time POC ABG pH POC ABG pCO2 POC ABG pO2 Sodium Potassium Chloride Carbon Dioxide BUN Creatinine Glucose POC Glucose 126 H 116 H 131 H Calcium Magnesium Direct Bilirubin AST ALT Alkaline Phosphatase Total Creatine Kinase CK-MB (CK-2) CK-MB (CK-2) Rel Index Troponin T C-Reactive Protein Total Protein Albumin Triglycerides Ur Specific [place] Urine WBC (Auto) Miscellaneous Test 05/14/17 05/15/17 05/15/17 11:45 11:27 17:42 WBC RBC Hgb Hct MCV MCH RDW Plt Count Lymph % (Auto) [place] % (Auto) Eos % (Auto) Baso % (Auto) Lymph # Baso # Seg Neutrophils % Lymphocytes % (Manual) Monocytes % (Manual) Nucleated RBC % Seg Neutrophils # Seg Neutrophils # Man Monocytes # (Manual) PT INR Activated Clotting Time POC ABG pH POC ABG pCO2 POC ABG pO2 Sodium Potassium Chloride Carbon Dioxide BUN Creatinine Glucose POC Glucose 123 H 129 H 125 H Calcium Magnesium Direct Bilirubin AST ALT Alkaline Phosphatase Total Creatine Kinase CK-MB (CK-2) CK-MB (CK-2) Rel Index Troponin T C-Reactive Protein Total Protein Albumin Triglycerides Ur Specific [place] Urine WBC (Auto) Miscellaneous Test 05/16/17 05/16/17 05/17/17 00:29 06:50 03:45 WBC RBC Hgb 11.7 L Hct 34.8 L MCV MCH RDW 15.5 H Plt Count Lymph % (Auto) [place] % (Auto) 7.7 H Eos % (Auto) Baso % (Auto) Lymph # Baso # Seg Neutrophils % 73.7 H Lymphocytes % (Manual) Monocytes % (Manual) Nucleated RBC % Seg Neutrophils # Seg Neutrophils # Man Monocytes # (Manual) PT INR Activated Clotting Time POC ABG pH POC ABG pCO2 POC ABG pO2 Sodium Potassium Chloride Carbon Dioxide BUN Creatinine Glucose POC Glucose 141 H 138 H Calcium Magnesium Direct Bilirubin AST ALT Alkaline Phosphatase Total Creatine Kinase CK-MB (CK-2) CK-MB (CK-2) Rel Index Troponin T C-Reactive Protein Total Protein Albumin Triglycerides Ur Specific [place] Urine WBC (Auto) Miscellaneous Test 05/17/17 05/20/17 05/23/17 03:45 17:31 23:09 WBC RBC Hgb Hct MCV MCH RDW Plt Count Lymph % (Auto) [place] % (Auto) Eos % (Auto) Baso % (Auto) Lymph # Baso # Seg Neutrophils % Lymphocytes % (Manual) Monocytes % (Manual) Nucleated RBC % Seg Neutrophils # Seg Neutrophils # Man Monocytes # (Manual) PT INR Activated Clotting Time POC ABG pH POC ABG pCO2 POC ABG pO2 Sodium Potassium Chloride Carbon Dioxide BUN Creatinine 0.2 L Glucose 131 H POC Glucose 116 H 122 H Calcium Magnesium Direct Bilirubin AST ALT Alkaline Phosphatase Total Creatine Kinase CK-MB (CK-2) CK-MB (CK-2) Rel Index Troponin T C-Reactive Protein Total Protein Albumin Triglycerides Ur Specific [place] Urine WBC (Auto) Miscellaneous Test 05/24/17 05/26/17 05/27/17 05:37 05:23 01:16 WBC RBC Hgb Hct MCV MCH RDW Plt Count Lymph % (Auto) [place] % (Auto) Eos % (Auto) Baso % (Auto) Lymph # Baso # Seg Neutrophils % Lymphocytes % (Manual) Monocytes % (Manual) Nucleated RBC % Seg Neutrophils # Seg Neutrophils # Man Monocytes # (Manual) PT INR Activated Clotting Time POC ABG pH POC ABG pCO2 POC ABG pO2 Sodium Potassium Chloride Carbon Dioxide BUN Creatinine Glucose POC Glucose 139 H 108 H 126 H Calcium Magnesium Direct Bilirubin AST ALT Alkaline Phosphatase Total Creatine Kinase CK-MB (CK-2) CK-MB (CK-2) Rel Index Troponin T C-Reactive Protein Total Protein Albumin Triglycerides Ur Specific [place] Urine WBC (Auto) Miscellaneous Test 05/27/17 05/27/17 05/29/17 05:33 21:49 04:37 WBC RBC Hgb Hct MCV MCH RDW 15.5 H Plt Count Lymph % (Auto) [place] % (Auto) Eos % (Auto) Baso % (Auto) Lymph # Baso # Seg Neutrophils % Lymphocytes % (Manual) Monocytes % (Manual) Nucleated RBC % Seg Neutrophils # Seg Neutrophils # Man Monocytes # (Manual) PT INR Activated Clotting Time POC ABG pH POC ABG pCO2 POC ABG pO2 Sodium Potassium Chloride Carbon Dioxide BUN Creatinine Glucose POC Glucose 129 H 110 H Calcium Magnesium Direct Bilirubin AST ALT Alkaline Phosphatase Total Creatine Kinase CK-MB (CK-2) CK-MB (CK-2) Rel Index Troponin T C-Reactive Protein Total Protein Albumin Triglycerides Ur Specific [place] Urine WBC (Auto) Miscellaneous Test 05/29/17 06/01/17 04:37 05:28 WBC RBC Hgb Hct MCV MCH RDW Plt Count Lymph % (Auto) [place] % (Auto) Eos % (Auto) Baso % (Auto) Lymph # Baso # Seg Neutrophils % Lymphocytes % (Manual) Monocytes % (Manual) Nucleated RBC % Seg Neutrophils # Seg Neutrophils # Man Monocytes # (Manual) PT INR Activated Clotting Time POC ABG pH POC ABG pCO2 POC ABG pO2 Sodium Potassium Chloride 97.6 L Carbon Dioxide BUN Creatinine 0.2 L Glucose 121 H POC Glucose 133 H Calcium Magnesium Direct Bilirubin AST ALT Alkaline Phosphatase Total Creatine Kinase CK-MB (CK-2) CK-MB (CK-2) Rel Index Troponin T C-Reactive Protein Total Protein Albumin Triglycerides Ur Specific [place] Urine WBC (Auto) Miscellaneous Test
[2017-06-08] MEDS: ASPIRIN PO SCH (10:10)
[2017-06-08] MEDS: PROTONIX FEEDTUBE SCH (10:10)
[2017-06-08] MEDS: LOPRESSOR PO SCH (10:10)
[2017-06-08] MEDS: PLAVIX PO SCH (10:11)
[2017-06-08] MEDS: ELIQUIS PO SCH (10:11)
[2017-06-08] MEDS: ZESTRIL PO SCH (10:11)
--- NOTE | 2017-06-08 18:23 | Progress Note ---
Assessment and Plan Assessment and plan: Anoxic encephalopathy STEMI, status post cardiac cath and stent placement Respiratory failure on trach and MV>96hrs Aspiration pneumonia treated with Iv antibiotics DVT; on eliquis - No change from baseline - No Family member in the room to discuss a plan of care History Interval history: Patient was seen and evaluated this morning, no change from baseline, unresponsive, on trach and on breathing trial. Hospitalist Physical - Physical exam Narrative exam: Patient has trach and mechanical ventilation. The patient appeared well nourished and normally developed. Vital signs as documented. Head exam is unremarkable. No scleral icterus . Neck is without jugular venous distension, thyromegaly, or carotid bruits. Lungs are clear to auscultation. Cardiac exam reveals regular rate and Rhythm. First and second heart sounds normal. No murmurs, rubs or gallops. Abdominal exam reveals normal bowel sounds, no masses, no organomegaly and no aortic enlargement. Extremities are nonedematous and both femoral and pedal pulses are normal. 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 - Constitutional Vitals: Temp Pulse Resp BP Pulse Ox 98.5 F 56 L 17 95/54 100 06/08/17 16:00 06/08/17 08:21 06/08/17 08:21 06/08/17 08:21 06/08/17 17:06 General appearance: Present: other (tracheostomy on vent) Results - Labs CBC & Chem 7: 05/29/17 04:37 05/29/17 04:37 Labs: Laboratory Last Values WBC 8.0 K/mm3 (4.5-11.0) 05/29/17 04:37 RBC 4.52 M/mm3 (3.65-5.03) 05/29/17 04:37 Hgb 13.6 gm/dl (11.8-15.2) 05/29/17 04:37 Hct 40.6 % (35.5-45.6) 05/29/17 04:37 MCV 90 fl (84-94) 05/29/17 04:37 MCH 30 pg (28-32) 05/29/17 04:37 MCHC 33 % (32-34) 05/29/17 04:37 RDW 15.5 % (13.2-15.2) H 05/29/17 04:37 Plt Count 222 K/mm3 (140-440) 05/29/17 04:37 Lymph % (Auto) 15.6 % (13.4-35.0) 05/17/17 03:45 [place] % (Auto) 7.7 % (0.0-7.3) H 05/17/17 03:45 Eos % (Auto) 2.7 % (0.0-4.3) 05/17/17 03:45 Baso % (Auto) 0.3 % (0.0-1.8) 05/17/17 03:45 Lymph # 1.5 K/mm3 (1.2-5.4) 05/17/17 03:45 [place] # 0.7 K/mm3 (0.0-0.8) 05/17/17 03:45 Eos # 0.3 K/mm3 (0.0-0.4) 05/17/17 03:45 Baso # 0.0 K/mm3 (0.0-0.1) 05/17/17 03:45 Add Manual Diff Complete 03/30/17 03:50 Total Counted 100 03/30/17 03:50 Seg Neutrophils % 73.7 % (40.0-70.0) H 05/17/17 03:45 Seg Neuts % (Manual) 65.0 % (40.0-70.0) 03/30/17 03:50 Band Neutrophils % 17.0 % 03/30/17 03:50 Lymphocytes % (Manual) 7.0 % (13.4-35.0) L 03/30/17 03:50 Reactive Lymphs % (Man) 0 % 03/30/17 03:50 Monocytes % (Manual) 7.0 % (0.0-7.3) 03/30/17 03:50 Eosinophils % (Manual) 0 % (0.0-4.3) 03/30/17 03:50 Basophils % (Manual) 0 % (0.0-1.8) 03/30/17 03:50 Metamyelocytes % 4.0 % 03/30/17 03:50 Myelocytes % 0 % 03/30/17 03:50 Promyelocytes % 0 % 03/30/17 03:50 Blast Cells % 0 % 03/30/17 03:50 Nucleated RBC % Not Reportable 03/30/17 03:50 Seg Neutrophils # 6.9 K/mm3 (1.8-7.7) 05/17/17 03:45 Seg Neutrophils # Man 12.7 K/mm3 (1.8-7.7) H 03/30/17 03:50 Band Neutrophils # 3.3 K/mm3 03/30/17 03:50 Lymphocytes # (Manual) 1.4 K/mm3 (1.2-5.4) 03/30/17 03:50 Abs React Lymphs (Man) 0.0 K/mm3 03/30/17 03:50 Monocytes # (Manual) 1.4 K/mm3 (0.0-0.8) H 03/30/17 03:50 Eosinophils # (Manual) 0.0 K/mm3 (0.0-0.4) 03/30/17 03:50 Basophils # (Manual) 0.0 K/mm3 (0.0-0.1) 03/30/17 03:50 Metamyelocytes # 0.8 K/mm3 03/30/17 03:50 Myelocytes # 0.0 K/mm3 03/30/17 03:50 Promyelocytes # 0.0 K/mm3 03/30/17 03:50 Blast Cells # 0.0 K/mm3 03/30/17 03:50 WBC Morphology Not Reportable 03/30/17 03:50 Hypersegmented Neuts Not Reportable 03/30/17 03:50 Hyposegmented Neuts Not Reportable 03/30/17 03:50 Hypogranular Neuts Not Reportable 03/30/17 03:50 Smudge Cells Not Reportable 03/30/17 03:50 Toxic Granulation Not Reportable 03/30/17 03:50 Toxic Vacuolation Not Reportable 03/30/17 03:50 Dohle Bodies Not Reportable 03/30/17 03:50 Pelger-Huet Anomaly Not Reportable 03/30/17 03:50 Sherry Rods Not Reportable 03/30/17 03:50 Platelet Estimate Appears normal 03/30/17 03:50 Clumped Platelets Not Reportable 03/30/17 03:50 Plt Clumps, EDTA Not Reportable 03/30/17 03:50 Large Platelets Not Reportable 03/30/17 03:50 Giant Platelets Not Reportable 03/30/17 03:50 Platelet Satelliting Not Reportable 03/30/17 03:50 Plt Morphology Comment Not Reportable 03/30/17 03:50 RBC Morphology Not Reportable 03/30/17 03:50 Dimorphic RBCs Not Reportable 03/30/17 03:50 Polychromasia Not Reportable 03/30/17 03:50 Hypochromasia Not Reportable 03/30/17 03:50 Poikilocytosis Not Reportable 03/30/17 03:50 Anisocytosis Few 03/30/17 03:50 Microcytosis Not Reportable 03/30/17 03:50 Macrocytosis Not Reportable 03/30/17 03:50 Spherocytes Not Reportable 03/30/17 03:50 Pappenheimer Bodies Not Reportable 03/30/17 03:50 Sickle Cells Not Reportable 03/30/17 03:50 Target Cells Not Reportable 03/30/17 03:50 Tear Drop Cells Not Reportable 03/30/17 03:50 Ovalocytes Not Reportable 03/30/17 03:50 Helmet Cells Not Reportable 03/30/17 03:50 [place] Bodies Not Reportable 03/30/17 03:50 [place] Rings Not Reportable 03/30/17 03:50 Nusrat Cells Not Reportable 03/30/17 03:50 Bite Cells Not Reportable 03/30/17 03:50 Crenated Cell Not Reportable 03/30/17 03:50 Elliptocytes Not Reportable 03/30/17 03:50 Acanthocytes (Spur) Not Reportable 03/30/17 03:50 Rouleaux Not Reportable 03/30/17 03:50 Hemoglobin C Crystals Not Reportable 03/30/17 03:50 Schistocytes Not Reportable 03/30/17 03:50 Malaria parasites Not Reportable 03/30/17 03:50 [place]erm[place] Bodies Not Reportable 03/30/17 03:50 Hem Pathologist Commnt No 03/30/17 03:50 PT 14.9 Sec. (12.2-14.9) 04/10/17 04:16 INR 1.11 (0.87-1.13) 04/10/17 04:16 APTT 27.8 Sec. (24.2-36.6) 04/10/17 04:16 Activated Clotting Time 92 (74-137) 03/29/17 17:47 POC ABG pH 7.524 (7.35-7.45) H 05/09/17 04:19 POC ABG pCO2 34.7 (35-45) L 05/09/17 04:19 POC ABG pO2 107 (80-105) H 05/09/17 04:19 POC ABG HCO3 28.6 05/09/17 04:19 POC ABG Total CO2 30 05/09/17 04:19 POC ABG O2 Sat 99 05/09/17 04:19 POC ABG Base Excess 6 05/09/17 04:19 FiO2 25 % 05/09/17 04:19 Sodium 138 mmol/L (137-145) 05/29/17 04:37 Potassium 4.2 mmol/L (3.6-5.0) 05/29/17 04:37 Chloride 97.6 mmol/L (98-107) L 05/29/17 04:37 Carbon Dioxide 23 mmol/L (22-30) 05/29/17 04:37 Anion Gap 22 mmol/L 05/29/17 04:37 BUN 14 mg/dL (9-20) 05/29/17 04:37 Creatinine 0.2 mg/dL (0.8-1.5) L 05/29/17 04:37 Estimated GFR > 60 ml/min 05/29/17 04:37 BUN/Creatinine Ratio 70 % 05/29/17 04:37 Glucose 121 mg/dL (75-100) H 05/29/17 04:37 POC Glucose 133 (70-105) H 06/01/17 05:28 Calcium 9.5 mg/dL (8.4-10.2) 05/29/17 04:37 Phosphorus 3.50 mg/dL (2.5-4.5) 04/13/17 04:45 Magnesium 1.80 mg/dL (1.7-2.3) 05/01/17 05:30 Total Bilirubin 0.60 mg/dL (0.1-1.2) 05/01/17 05:30 Direct Bilirubin < 0.2 mg/dL (0-0.2) 04/27/17 05:40 Indirect Bilirubin 0.3 mg/dL 04/25/17 04:51 AST 71 units/L (5-40) H 05/01/17 05:30 ALT 125 units/L (7-56) H 05/01/17 05:30 Alkaline Phosphatase 158 units/L (35-129) H 05/01/17 05:30 Total Creatine Kinase 1404 units/L (55-170) H 04/12/17 21:36 CK-MB (CK-2) 8.0 ng/mL (0.0-4.0) H 04/12/17 21:36 CK-MB (CK-2) Rel Index 0.5 (0-4) 04/12/17 21:36 Troponin T 0.767 ng/mL (0.00-0.029) H* 04/12/17 21:36 C-Reactive Protein 21.80 mg/dL (0.00-1.30) H 03/30/17 16:04 Total Protein 6.7 g/dL (6.3-8.2) 05/01/17 05:30 Albumin 2.6 g/dL (3.9-5) L 05/01/17 05:30 Albumin/Globulin Ratio 0.6 % 05/01/17 05:30 Triglycerides 151 mg/dL (2-149) H 04/01/17 04:29 Cholesterol 164 mg/dL (50-199) 03/29/17 19:52 LDL Cholesterol Direct 81 mg/dL (50-130) 03/29/17 19:52 HDL Cholesterol 44 mg/dL (40-59) 03/29/17 19:52 Cholesterol/HDL Ratio 3.72 % 03/29/17 19:52 Urine Color [place] (Yellow) 04/21/17 22:00 Urine Turbidity Clear (Clear) 04/21/17 22:00 Urine pH 5.0 (5.0-7.0) 04/21/17 22:00 Ur Specific [place] 1.029 (1.003-1.030) 04/21/17 22:00 Urine Protein 30 mg/dl mg/dL (Negative) 04/21/17 22:00 Urine Glucose (UA) Neg mg/dL (Negative) 04/21/17 22:00 Urine Ketones Neg mg/dL (Negative) 04/21/17 22:00 Urine Blood Mod (Negative) 04/21/17 22:00 Urine Nitrite Neg (Negative) 04/21/17 22:00 Urine Bilirubin Neg (Negative) 04/21/17 22:00 Urine Urobilinogen 4.0 mg/dL (<2.0) 04/21/17 22:00 Ur Leukocyte Esterase Neg (Negative) 04/21/17 22:00 Urine WBC (Auto) 10.0 /HPF (0.0-6.0) H 04/21/17 22:00 Urine RBC (Auto) 44.0 /HPF (0.0-6.0) 04/21/17 22:00 U Epithel Cells (Auto) < 1.0 /HPF (0-13.0) 04/21/17 22:00 Amorphous Crystals 1+ 03/30/17 09:45 Urine Mucus 3+ /HPF 04/21/17 22:00 Urine Opiates Screen Presumptive negative 03/30/17 09:45 Urine Methadone Screen Presumptive negative 03/30/17 09:45 Ur Barbiturates Screen Presumptive negative 03/30/17 09:45 Ur Phencyclidine Scrn Presumptive negative 03/30/17 09:45 Ur Amphetamines Screen Presumptive positive 03/30/17 09:45 U Benzodiazepines Scrn Presumptive positive 03/30/17 09:45 Urine Cocaine Screen Presumptive negative 03/30/17 09:45 U Marijuana (THC) Screen Presumptive negative 03/30/17 09:45 Drugs of Abuse Note Disclamer 03/30/17 09:45 Miscellaneous Test Flexitest 1 H 04/25/17 07:07 Blood Type O POSITIVE 03/29/17 11:35 Antibody Screen Negative 03/29/17 11:35
[2017-06-09] MEDS: ELIQUIS PO SCH ×3 (01:24→23:30)
[2017-06-09] MEDS: LOPRESSOR PO SCH ×2 (01:25→11:23)
[2017-06-09] MEDS: CORDARONE PO SCH ×2 (01:25→11:23)
--- NOTE | 2017-06-09 09:31 | Progress Note ---
Assessment and Plan Out of hospital cardiac arrest Hypoxic encephalopathy. Neurologically the same. See neuro comments Respiratory failure. tolerating spontaneous, on T piece DVT RUE. On Eliquis STEMI-on Eliquis, Plavix, aspirin s/p LHC with stent placement Prior MRSA,RLL . No fever, off antibiotics Recommendations Continue current oxygen support. Suction tracheotomy as needed Watch for fever If he continues on stable condition next 24-48 hours, consider transfer to intermediate care Monitor blood sugar, avoid hypoglycemia Discussed with RT in detail. No family members present at the bedside for additional update. Neurological status and perhaps prognosis remains the same Critical care time with a 31 minutes of [id number] evaluation and coordination of care Subjective Date of service: 06/09/17 Principal diagnosis: coma,ARV,s/p arrest,ARF MV Interval history: trach Objective Vital Signs - 12hr 06/08/17 06/08/17 06/09/17 22:00 23:00 00:00 Temperature 98.3 F Pulse Rate 62 67 70 Pulse Rate [ 56 L From Monitor] Pulse Rate [ 56 L Left Dorsalis Pedis] Pulse Rate [ 56 L Left Radial] Pulse Rate [ 56 L Right Dorsalis Pedis] Pulse Rate [ 56 L Right Radial] Respiratory 30 H 36 H 26 H Rate Blood Pressure 89/49 89/53 94/54 O2 Sat by Pulse 100 97 Oximetry O2 Sat by Pulse Oximetry [ Assessment] 06/09/17 06/09/17 06/09/17 00:15 01:01 01:25 Temperature Pulse Rate 69 57 L Pulse Rate [ From Monitor] Pulse Rate [ Left Dorsalis Pedis] Pulse Rate [ Left Radial] Pulse Rate [ Right Dorsalis Pedis] Pulse Rate [ Right Radial] Respiratory 32 H Rate Blood Pressure 97/60 97/60 O2 Sat by Pulse 100 Oximetry O2 Sat by Pulse 100 Oximetry [ Assessment] 06/09/17 06/09/17 06/09/17 02:00 03:00 04:00 Temperature 98.1 F Pulse Rate 64 53 L Pulse Rate [ From Monitor] Pulse Rate [ Left Dorsalis Pedis] Pulse Rate [ Left Radial] Pulse Rate [ Right Dorsalis Pedis] Pulse Rate [ Right Radial] Respiratory 22 20 Rate Blood Pressure 97/60 99/59 O2 Sat by Pulse 99 100 Oximetry O2 Sat by Pulse Oximetry [ Assessment] 06/09/17 06/09/17 06/09/17 04:01 05:00 06:00 Temperature Pulse Rate 62 62 60 Pulse Rate [ 64 From Monitor] Pulse Rate [ 64 Left Dorsalis Pedis] Pulse Rate [ 64 Left Radial] Pulse Rate [ 64 Right Dorsalis Pedis] Pulse Rate [ 64 Right Radial] Respiratory 30 H 26 H 27 H Rate Blood Pressure 100/59 100/59 102/59 O2 Sat by Pulse 98 100 100 Oximetry O2 Sat by Pulse Oximetry [ Assessment] 06/09/17 06/09/17 06/09/17 07:00 07:56 08:00 Temperature 98.3 F Pulse Rate 53 L 55 L Pulse Rate [ 55 L From Monitor] Pulse Rate [ Left Dorsalis Pedis] Pulse Rate [ Left Radial] Pulse Rate [ Right Dorsalis Pedis] Pulse Rate [ Right Radial] Respiratory 19 28 H Rate Blood Pressure 102/56 99/60 O2 Sat by Pulse 100 100 100 Oximetry O2 Sat by Pulse 100 Oximetry [ Assessment] Constitutional: no acute distress, other (stuporous, no changes) Eyes: non-icteric ENT: oropharynx moist Neck: supple, other (tracheotomy ) Effort: normal Ascultation: Bilateral: clear, diminished breath sounds Percussion: Bilateral: not dull Cardiovascular: regular rate and rhythm Gastrointestinal: normoactive bowel sounds, soft, non-tender, non-distended Integumentary: normal Extremities: no cyanosis, no edema, pink and warm Neurologic: other (no change) Psychiatric: other (eyes open spontaneously but does not follow any voice commands, ) CBC and BMP: 05/29/17 04:37 05/29/17 04:37 ABG, PT/INR, D-dimer: ABG POC ABG pH 7.524 (7.35-7.45) H 05/09/17 04:19 POC ABG pCO2 34.7 (35-45) L 05/09/17 04:19 POC ABG pO2 107 (80-105) H 05/09/17 04:19 POC ABG HCO3 28.6 05/09/17 04:19 POC ABG Total CO2 30 05/09/17 04:19 POC ABG O2 Sat 99 05/09/17 04:19 PT/INR, D-dimer PT 14.9 Sec. (12.2-14.9) 04/10/17 04:16 INR 1.11 (0.87-1.13) 04/10/17 04:16 Abnormal lab findings: Abnormal Labs 03/29/17 03/29/17 03/29/17 11:35 11:35 11:40 WBC RBC Hgb Hct MCV 98 H MCH 33 H RDW Plt Count Lymph % (Auto) [place] % (Auto) Eos % (Auto) Baso % (Auto) Lymph # Baso # Seg Neutrophils % Lymphocytes % (Manual) Monocytes % (Manual) 9.0 H Nucleated RBC % 1.0 H Seg Neutrophils # Seg Neutrophils # Man Monocytes # (Manual) 0.9 H PT 15.8 H INR 1.20 H Activated Clotting Time POC ABG pH POC ABG pCO2 POC ABG pO2 Sodium Potassium 2.7 L* Chloride 95.3 L Carbon Dioxide 17 L BUN Creatinine Glucose 435 H POC Glucose Calcium Magnesium Direct Bilirubin AST ALT Alkaline Phosphatase Total Creatine Kinase CK-MB (CK-2) CK-MB (CK-2) Rel Index Troponin T C-Reactive Protein Total Protein 6.1 L Albumin 3.5 L Triglycerides Ur Specific [place] Urine WBC (Auto) Miscellaneous Test 03/29/17 03/29/17 03/29/17 12:34 13:10 13:25 WBC RBC Hgb Hct MCV MCH RDW Plt Count Lymph % (Auto) [place] % (Auto) Eos % (Auto) Baso % (Auto) Lymph # Baso # Seg Neutrophils % Lymphocytes % (Manual) Monocytes % (Manual) Nucleated RBC % Seg Neutrophils # Seg Neutrophils # Man Monocytes # (Manual) PT INR Activated Clotting Time 142 H 169 H 175 H POC ABG pH POC ABG pCO2 POC ABG pO2 Sodium Potassium Chloride Carbon Dioxide BUN Creatinine Glucose POC Glucose Calcium Magnesium Direct Bilirubin AST ALT Alkaline Phosphatase Total Creatine Kinase CK-MB (CK-2) CK-MB (CK-2) Rel Index Troponin T C-Reactive Protein Total Protein Albumin Triglycerides Ur Specific [place] Urine WBC (Auto) Miscellaneous Test 03/29/17 03/29/17 03/29/17 14:50 15:18 19:52 WBC RBC Hgb Hct MCV MCH RDW Plt Count Lymph % (Auto) [place] % (Auto) Eos % (Auto) Baso % (Auto) Lymph # Baso # Seg Neutrophils % Lymphocytes % (Manual) Monocytes % (Manual) Nucleated RBC % Seg Neutrophils # Seg Neutrophils # Man Monocytes # (Manual) PT INR Activated Clotting Time 175 H POC ABG pH 7.293 L POC ABG pCO2 POC ABG pO2 602 H Sodium Potassium Chloride Carbon Dioxide BUN Creatinine Glucose POC Glucose Calcium Magnesium Direct Bilirubin AST ALT Alkaline Phosphatase Total Creatine Kinase 7263 H CK-MB (CK-2) > 300.0 H CK-MB (CK-2) Rel Index 4.1 H Troponin T 8.080 H* D C-Reactive Protein Total Protein Albumin Triglycerides 195 H Ur Specific [place] Urine WBC (Auto) Miscellaneous Test 03/30/17 03/30/17 03/30/17 03:50 03:50 06:19 WBC 19.5 H RBC Hgb Hct MCV MCH RDW Plt Count Lymph % (Auto) [place] % (Auto) Eos % (Auto) Baso % (Auto) Lymph # Baso # Seg Neutrophils % Lymphocytes % (Manual) 7.0 L Monocytes % (Manual) Nucleated RBC % Seg Neutrophils # Seg Neutrophils # Man 12.7 H Monocytes # (Manual) 1.4 H PT INR Activated Clotting Time POC ABG pH POC ABG pCO2 28.2 L POC ABG pO2 108 H Sodium Potassium Chloride 108.9 H Carbon Dioxide 15 L BUN 25 H Creatinine Glucose 158 H POC Glucose Calcium 8.1 L Magnesium Direct Bilirubin AST ALT Alkaline Phosphatase Total Creatine Kinase 7963 H CK-MB (CK-2) > 300.0 H CK-MB (CK-2) Rel Index Troponin T 6.850 H* C-Reactive Protein Total Protein Albumin Triglycerides Ur Specific [place] Urine WBC (Auto) Miscellaneous Test 03/30/17 03/30/17 03/31/17 09:45 16:04 02:19 WBC RBC Hgb Hct MCV MCH RDW Plt Count Lymph % (Auto) [place] % (Auto) Eos % (Auto) Baso % (Auto) Lymph # Baso # Seg Neutrophils % Lymphocytes % (Manual) Monocytes % (Manual) Nucleated RBC % Seg Neutrophils # Seg Neutrophils # Man Monocytes # (Manual) PT INR Activated Clotting Time POC ABG pH POC ABG pCO2 POC ABG pO2 Sodium Potassium Chloride Carbon Dioxide BUN Creatinine Glucose POC Glucose 137 H Calcium Magnesium Direct Bilirubin AST ALT Alkaline Phosphatase Total Creatine Kinase CK-MB (CK-2) CK-MB (CK-2) Rel Index Troponin T C-Reactive Protein 21.80 H Total Protein Albumin Triglycerides Ur Specific [place] 1.031 H Urine WBC (Auto) Miscellaneous Test 03/31/17 03/31/17 03/31/17 03:57 06:54 09:22 WBC RBC Hgb Hct MCV MCH RDW Plt Count Lymph % (Auto) [place] % (Auto) Eos % (Auto) Baso % (Auto) Lymph # Baso # Seg Neutrophils % Lymphocytes % (Manual) Monocytes % (Manual) Nucleated RBC % Seg Neutrophils # Seg Neutrophils # Man Monocytes # (Manual) PT INR Activated Clotting Time POC ABG pH 7.475 H POC ABG pCO2 25.4 L POC ABG pO2 62 L Sodium Potassium Chloride Carbon Dioxide 19 L BUN 22 H Creatinine 0.6 L Glucose 148 H POC Glucose 143 H Calcium 8.3 L Magnesium Direct Bilirubin AST ALT Alkaline Phosphatase Total Creatine Kinase CK-MB (CK-2) CK-MB (CK-2) Rel Index Troponin T C-Reactive Protein Total Protein Albumin Triglycerides Ur Specific [place] Urine WBC (Auto) Miscellaneous Test 03/31/17 03/31/17 03/31/17 11:40 17:47 23:38 WBC RBC Hgb Hct MCV MCH RDW Plt Count Lymph % (Auto) [place] % (Auto) Eos % (Auto) Baso % (Auto) Lymph # Baso # Seg Neutrophils % Lymphocytes % (Manual) Monocytes % (Manual) Nucleated RBC % Seg Neutrophils # Seg Neutrophils # Man Monocytes # (Manual) PT INR Activated Clotting Time POC ABG pH POC ABG pCO2 POC ABG pO2 Sodium Potassium Chloride Carbon Dioxide BUN Creatinine Glucose POC Glucose 127 H 137 H 148 H Calcium Magnesium Direct Bilirubin AST ALT Alkaline Phosphatase Total Creatine Kinase CK-MB (CK-2) CK-MB (CK-2) Rel Index Troponin T C-Reactive Protein Total Protein Albumin Triglycerides Ur Specific [place] Urine WBC (Auto) Miscellaneous Test 04/01/17 04/01/17 04/01/17 04:29 05:01 11:54 WBC RBC Hgb Hct MCV MCH RDW Plt Count Lymph % (Auto) [place] % (Auto) Eos % (Auto) Baso % (Auto) Lymph # Baso # Seg Neutrophils % Lymphocytes % (Manual) Monocytes % (Manual) Nucleated RBC % Seg Neutrophils # Seg Neutrophils # Man Monocytes # (Manual) PT INR Activated Clotting Time POC ABG pH 7.513 H POC ABG pCO2 22.1 L POC ABG pO2 64 L Sodium Potassium Chloride Carbon Dioxide BUN Creatinine Glucose POC Glucose 121 H Calcium Magnesium Direct Bilirubin AST ALT Alkaline Phosphatase Total Creatine Kinase CK-MB (CK-2) CK-MB (CK-2) Rel Index Troponin T C-Reactive Protein Total Protein Albumin Triglycerides 151 H Ur Specific [place] Urine WBC (Auto) Miscellaneous Test 04/01/17 04/02/17 04/02/17 18:17 00:11 04:52 WBC RBC Hgb Hct MCV MCH RDW Plt Count Lymph % (Auto) [place] % (Auto) Eos % (Auto) Baso % (Auto) Lymph # Baso # Seg Neutrophils % Lymphocytes % (Manual) Monocytes % (Manual) Nucleated RBC % Seg Neutrophils # Seg Neutrophils # Man Monocytes # (Manual) PT INR Activated Clotting Time POC ABG pH 7.524 H POC ABG pCO2 25.5 L POC ABG pO2 66 L Sodium Potassium Chloride Carbon Dioxide BUN Creatinine Glucose POC Glucose 117 H 122 H Calcium Magnesium Direct Bilirubin AST ALT Alkaline Phosphatase Total Creatine Kinase CK-MB (CK-2) CK-MB (CK-2) Rel Index Troponin T C-Reactive Protein Total Protein Albumin Triglycerides Ur Specific [place] Urine WBC (Auto) Miscellaneous Test 04/02/17 04/02/17 04/02/17 05:18 10:41 12:19 WBC RBC Hgb Hct MCV MCH RDW Plt Count Lymph % (Auto) [place] % (Auto) Eos % (Auto) Baso % (Auto) Lymph # Baso # Seg Neutrophils % Lymphocytes % (Manual) Monocytes % (Manual) Nucleated RBC % Seg Neutrophils # Seg Neutrophils # Man Monocytes # (Manual) PT INR Activated Clotting Time POC ABG pH 7.534 H POC ABG pCO2 27.4 L POC ABG pO2 Sodium Potassium Chloride Carbon Dioxide BUN Creatinine Glucose POC Glucose 132 H 129 H Calcium Magnesium Direct Bilirubin AST ALT Alkaline Phosphatase Total Creatine Kinase CK-MB (CK-2) CK-MB (CK-2) Rel Index Troponin T C-Reactive Protein Total Protein Albumin Triglycerides Ur Specific [place] Urine WBC (Auto) Miscellaneous Test 04/02/17 04/03/17 04/03/17 18:05 00:08 05:09 WBC RBC Hgb Hct MCV MCH RDW Plt Count Lymph % (Auto) [place] % (Auto) Eos % (Auto) Baso % (Auto) Lymph # Baso # Seg Neutrophils % Lymphocytes % (Manual) Monocytes % (Manual) Nucleated RBC % Seg Neutrophils # Seg Neutrophils # Man Monocytes # (Manual) PT INR Activated Clotting Time POC ABG pH 7.455 H POC ABG pCO2 33.2 L POC ABG pO2 120 H Sodium Potassium Chloride Carbon Dioxide BUN Creatinine Glucose POC Glucose 136 H 128 H Calcium Magnesium Direct Bilirubin AST ALT Alkaline Phosphatase Total Creatine Kinase CK-MB (CK-2) CK-MB (CK-2) Rel Index Troponin T C-Reactive Protein Total Protein Albumin Triglycerides Ur Specific [place] Urine WBC (Auto) Miscellaneous Test 04/03/17 04/03/17 04/03/17 06:32 11:54 12:16 WBC 11.9 H RBC Hgb Hct MCV MCH RDW Plt Count 125 L Lymph % (Auto) 4.8 L [place] % (Auto) Eos % (Auto) Baso % (Auto) Lymph # 0.6 L Baso # Seg Neutrophils % 86.7 H Lymphocytes % (Manual) Monocytes % (Manual) Nucleated RBC % Seg Neutrophils # 10.3 H Seg Neutrophils # Man Monocytes # (Manual) PT INR Activated Clotting Time POC ABG pH POC ABG pCO2 POC ABG pO2 Sodium Potassium Chloride Carbon Dioxide BUN Creatinine Glucose POC Glucose 138 H 143 H Calcium Magnesium Direct Bilirubin AST ALT Alkaline Phosphatase Total Creatine Kinase CK-MB (CK-2) CK-MB (CK-2) Rel Index Troponin T C-Reactive Protein Total Protein Albumin Triglycerides Ur Specific [place] Urine WBC (Auto) Miscellaneous Test 04/03/17 04/03/17 04/04/17 17:33 23:59 04:34 WBC RBC Hgb Hct MCV MCH RDW Plt Count Lymph % (Auto) [place] % (Auto) Eos % (Auto) Baso % (Auto) Lymph # Baso # Seg Neutrophils % Lymphocytes % (Manual) Monocytes % (Manual) Nucleated RBC % Seg Neutrophils # Seg Neutrophils # Man Monocytes # (Manual) PT INR Activated Clotting Time POC ABG pH 7.457 H POC ABG pCO2 29.8 L POC ABG pO2 76 L Sodium Potassium Chloride Carbon Dioxide BUN Creatinine Glucose POC Glucose 130 H 155 H Calcium Magnesium Direct Bilirubin AST ALT Alkaline Phosphatase Total Creatine Kinase CK-MB (CK-2) CK-MB (CK-2) Rel Index Troponin T C-Reactive Protein Total Protein Albumin Triglycerides Ur Specific [place] Urine WBC (Auto) Miscellaneous Test 04/04/17 04/04/17 04/04/17 05:27 12:22 18:18 WBC RBC Hgb Hct MCV MCH RDW Plt Count Lymph % (Auto) [place] % (Auto) Eos % (Auto) Baso % (Auto) Lymph # Baso # Seg Neutrophils % Lymphocytes % (Manual) Monocytes % (Manual) Nucleated RBC % Seg Neutrophils # Seg Neutrophils # Man Monocytes # (Manual) PT INR Activated Clotting Time POC ABG pH POC ABG pCO2 POC ABG pO2 Sodium Potassium Chloride Carbon Dioxide BUN Creatinine Glucose POC Glucose 164 H 146 H 130 H Calcium Magnesium Direct Bilirubin AST ALT Alkaline Phosphatase Total Creatine Kinase CK-MB (CK-2) CK-MB (CK-2) Rel Index Troponin T C-Reactive Protein Total Protein Albumin Triglycerides Ur Specific [place] Urine WBC (Auto) Miscellaneous Test 04/05/17 04/05/17 04/05/17 04:43 05:28 11:36 WBC RBC Hgb Hct MCV MCH RDW Plt Count Lymph % (Auto) [place] % (Auto) Eos % (Auto) Baso % (Auto) Lymph # Baso # Seg Neutrophils % Lymphocytes % (Manual) Monocytes % (Manual) Nucleated RBC % Seg Neutrophils # Seg Neutrophils # Man Monocytes # (Manual) PT INR Activated Clotting Time POC ABG pH 7.479 H POC ABG pCO2 33.5 L POC ABG pO2 76 L Sodium Potassium Chloride Carbon Dioxide BUN Creatinine Glucose POC Glucose 145 H 136 H Calcium Magnesium Direct Bilirubin AST ALT Alkaline Phosphatase Total Creatine Kinase CK-MB (CK-2) CK-MB (CK-2) Rel Index Troponin T C-Reactive Protein Total Protein Albumin Triglycerides Ur Specific [place] Urine WBC (Auto) Miscellaneous Test 04/05/17 04/06/17 04/06/17 17:58 00:16 05:26 WBC RBC Hgb Hct MCV MCH RDW Plt Count Lymph % (Auto) [place] % (Auto) Eos % (Auto) Baso % (Auto) Lymph # Baso # Seg Neutrophils % Lymphocytes % (Manual) Monocytes % (Manual) Nucleated RBC % Seg Neutrophils # Seg Neutrophils # Man Monocytes # (Manual) PT INR Activated Clotting Time POC ABG pH POC ABG pCO2 POC ABG pO2 Sodium Potassium Chloride Carbon Dioxide BUN Creatinine Glucose POC Glucose 130 H 159 H 146 H Calcium Magnesium Direct Bilirubin AST ALT Alkaline Phosphatase Total Creatine Kinase CK-MB (CK-2) CK-MB (CK-2) Rel Index Troponin T C-Reactive Protein Total Protein Albumin Triglycerides Ur Specific [place] Urine WBC (Auto) Miscellaneous Test 04/06/17 04/06/17 04/07/17 13:11 16:54 11:45 WBC RBC Hgb Hct MCV MCH RDW Plt Count Lymph % (Auto) [place] % (Auto) Eos % (Auto) Baso % (Auto) Lymph # Baso # Seg Neutrophils % Lymphocytes % (Manual) Monocytes % (Manual) Nucleated RBC % Seg Neutrophils # Seg Neutrophils # Man Monocytes # (Manual) PT INR Activated Clotting Time POC ABG pH 7.517 H POC ABG pCO2 32.1 L POC ABG pO2 Sodium Potassium Chloride Carbon Dioxide BUN Creatinine Glucose POC Glucose 132 H 123 H Calcium Magnesium Direct Bilirubin AST ALT Alkaline Phosphatase Total Creatine Kinase CK-MB (CK-2) CK-MB (CK-2) Rel Index Troponin T C-Reactive Protein Total Protein Albumin Triglycerides Ur Specific [place] Urine WBC (Auto) Miscellaneous Test 04/07/17 04/07/17 04/07/17 12:51 17:40 23:55 WBC RBC Hgb Hct MCV MCH RDW Plt Count Lymph % (Auto) [place] % (Auto) Eos % (Auto) Baso % (Auto) Lymph # Baso # Seg Neutrophils % Lymphocytes % (Manual) Monocytes % (Manual) Nucleated RBC % Seg Neutrophils # Seg Neutrophils # Man Monocytes # (Manual) PT INR Activated Clotting Time POC ABG pH POC ABG pCO2 POC ABG pO2 Sodium Potassium Chloride Carbon Dioxide BUN Creatinine Glucose POC Glucose 138 H 154 H 143 H Calcium Magnesium Direct Bilirubin AST ALT Alkaline Phosphatase Total Creatine Kinase CK-MB (CK-2) CK-MB (CK-2) Rel Index Troponin T C-Reactive Protein Total Protein Albumin Triglycerides Ur Specific [place] Urine WBC (Auto) Miscellaneous Test 04/08/17 04/08/17 04/08/17 05:27 11:14 17:44 WBC RBC Hgb Hct MCV MCH RDW Plt Count Lymph % (Auto) [place] % (Auto) Eos % (Auto) Baso % (Auto) Lymph # Baso # Seg Neutrophils % Lymphocytes % (Manual) Monocytes % (Manual) Nucleated RBC % Seg Neutrophils # Seg Neutrophils # Man Monocytes # (Manual) PT INR Activated Clotting Time POC ABG pH POC ABG pCO2 POC ABG pO2 Sodium Potassium Chloride Carbon Dioxide BUN Creatinine Glucose POC Glucose 142 H 153 H 129 H Calcium Magnesium Direct Bilirubin AST ALT Alkaline Phosphatase Total Creatine Kinase CK-MB (CK-2) CK-MB (CK-2) Rel Index Troponin T C-Reactive Protein Total Protein Albumin Triglycerides Ur Specific [place] Urine WBC (Auto) Miscellaneous Test 04/09/17 04/09/17 04/09/17 08:20 11:21 17:37 WBC RBC Hgb Hct MCV MCH RDW Plt Count Lymph % (Auto) [place] % (Auto) Eos % (Auto) Baso % (Auto) Lymph # Baso # Seg Neutrophils % Lymphocytes % (Manual) Monocytes % (Manual) Nucleated RBC % Seg Neutrophils # Seg Neutrophils # Man Monocytes # (Manual) PT INR Activated Clotting Time POC ABG pH POC ABG pCO2 POC ABG pO2 Sodium 147 H Potassium Chloride 108.8 H Carbon Dioxide BUN 39 H Creatinine 0.5 L Glucose 138 H POC Glucose 152 H 109 H Calcium Magnesium Direct Bilirubin AST ALT Alkaline Phosphatase Total Creatine Kinase CK-MB (CK-2) CK-MB (CK-2) Rel Index Troponin T C-Reactive Protein Total Protein Albumin Triglycerides Ur Specific [place] Urine WBC (Auto) Miscellaneous Test 04/10/17 04/10/17 04/10/17 00:13 04:16 04:16 WBC RBC Hgb 11.5 L Hct MCV 96 H MCH RDW Plt Count 103 L Lymph % (Auto) 11.1 L [place] % (Auto) Eos % (Auto) Baso % (Auto) Lymph # Baso # Seg Neutrophils % 81.5 H Lymphocytes % (Manual) Monocytes % (Manual) Nucleated RBC % Seg Neutrophils # 8.8 H Seg Neutrophils # Man Monocytes # (Manual) PT INR Activated Clotting Time POC ABG pH POC ABG pCO2 POC ABG pO2 Sodium 148 H Potassium Chloride 109.0 H Carbon Dioxide BUN 36 H Creatinine 0.5 L Glucose 131 H POC Glucose 127 H Calcium 8.1 L Magnesium 2.40 H Direct Bilirubin AST 206 H ALT 228 H Alkaline Phosphatase 178 H Total Creatine Kinase CK-MB (CK-2) CK-MB (CK-2) Rel Index Troponin T C-Reactive Protein Total Protein Albumin 2.8 L Triglycerides Ur Specific [place] Urine WBC (Auto) Miscellaneous Test 04/10/17 04/10/17 04/10/17 06:01 11:57 18:27 WBC RBC Hgb Hct MCV MCH RDW Plt Count Lymph % (Auto) [place] % (Auto) Eos % (Auto) Baso % (Auto) Lymph # Baso # Seg Neutrophils % Lymphocytes % (Manual) Monocytes % (Manual) Nucleated RBC % Seg Neutrophils # Seg Neutrophils # Man Monocytes # (Manual) PT INR Activated Clotting Time POC ABG pH POC ABG pCO2 POC ABG pO2 Sodium Potassium Chloride Carbon Dioxide BUN Creatinine Glucose POC Glucose 108 H 154 H 130 H Calcium Magnesium Direct Bilirubin AST ALT Alkaline Phosphatase Total Creatine Kinase CK-MB (CK-2) CK-MB (CK-2) Rel Index Troponin T C-Reactive Protein Total Protein Albumin Triglycerides Ur Specific [place] Urine WBC (Auto) Miscellaneous Test 04/11/17 04/11/17 04/12/17 12:25 17:10 00:22 WBC RBC Hgb Hct MCV MCH RDW Plt Count Lymph % (Auto) [place] % (Auto) Eos % (Auto) Baso % (Auto) Lymph # Baso # Seg Neutrophils % Lymphocytes % (Manual) Monocytes % (Manual) Nucleated RBC % Seg Neutrophils # Seg Neutrophils # Man Monocytes # (Manual) PT INR Activated Clotting Time POC ABG pH POC ABG pCO2 POC ABG pO2 Sodium Potassium Chloride Carbon Dioxide BUN Creatinine Glucose POC Glucose 107 H 129 H 128 H Calcium Magnesium Direct Bilirubin AST ALT Alkaline Phosphatase Total Creatine Kinase CK-MB (CK-2) CK-MB (CK-2) Rel Index Troponin T C-Reactive Protein Total Protein Albumin Triglycerides Ur Specific [place] Urine WBC (Auto) Miscellaneous Test 04/12/17 04/12/17 04/12/17 05:00 11:57 17:47 WBC RBC Hgb Hct MCV MCH RDW Plt Count Lymph % (Auto) [place] % (Auto) Eos % (Auto) Baso % (Auto) Lymph # Baso # Seg Neutrophils % Lymphocytes % (Manual) Monocytes % (Manual) Nucleated RBC % Seg Neutrophils # Seg Neutrophils # Man Monocytes # (Manual) PT INR Activated Clotting Time POC ABG pH POC ABG pCO2 POC ABG pO2 Sodium Potassium Chloride Carbon Dioxide BUN Creatinine Glucose POC Glucose 140 H 142 H Calcium Magnesium Direct Bilirubin AST 158 H ALT 184 H Alkaline Phosphatase 170 H Total Creatine Kinase CK-MB (CK-2) CK-MB (CK-2) Rel Index Troponin T C-Reactive Protein Total Protein Albumin 2.8 L Triglycerides Ur Specific [place] Urine WBC (Auto) Miscellaneous Test 04/12/17 04/12/17 04/13/17 21:36 21:36 01:37 WBC RBC Hgb Hct MCV MCH RDW Plt Count Lymph % (Auto) [place] % (Auto) Eos % (Auto) Baso % (Auto) Lymph # Baso # Seg Neutrophils % Lymphocytes % (Manual) Monocytes % (Manual) Nucleated RBC % Seg Neutrophils # Seg Neutrophils # Man Monocytes # (Manual) PT INR Activated Clotting Time POC ABG pH POC ABG pCO2 POC ABG pO2 Sodium Potassium Chloride Carbon Dioxide BUN Creatinine Glucose POC Glucose 126 H Calcium Magnesium Direct Bilirubin AST ALT Alkaline Phosphatase Total Creatine Kinase 1404 H CK-MB (CK-2) 8.0 H CK-MB (CK-2) Rel Index Troponin T 0.767 H* C-Reactive Protein Total Protein Albumin Triglycerides Ur Specific [place] Urine WBC (Auto) Miscellaneous Test 04/13/17 04/13/17 04/13/17 04:45 04:52 12:17 WBC RBC Hgb Hct MCV MCH RDW Plt Count Lymph % (Auto) [place] % (Auto) Eos % (Auto) Baso % (Auto) Lymph # Baso # Seg Neutrophils % Lymphocytes % (Manual) Monocytes % (Manual) Nucleated RBC % Seg Neutrophils # Seg Neutrophils # Man Monocytes # (Manual) PT INR Activated Clotting Time POC ABG pH POC ABG pCO2 POC ABG pO2 Sodium 148 H Potassium Chloride 112.8 H Carbon Dioxide BUN 33 H Creatinine 0.4 L Glucose 121 H POC Glucose 126 H 149 H Calcium Magnesium Direct Bilirubin AST 160 H ALT 189 H Alkaline Phosphatase 166 H Total Creatine Kinase CK-MB (CK-2) CK-MB (CK-2) Rel Index Troponin T C-Reactive Protein Total Protein Albumin 2.6 L Triglycerides Ur Specific [place] Urine WBC (Auto) Miscellaneous Test 04/13/17 04/14/17 04/14/17 17:45 00:20 00:45 WBC RBC Hgb Hct MCV MCH RDW Plt Count Lymph % (Auto) [place] % (Auto) Eos % (Auto) Baso % (Auto) Lymph # Baso # Seg Neutrophils % Lymphocytes % (Manual) Monocytes % (Manual) Nucleated RBC % Seg Neutrophils # Seg Neutrophils # Man Monocytes # (Manual) PT INR Activated Clotting Time POC ABG pH POC ABG pCO2 POC ABG pO2 Sodium Potassium Chloride Carbon Dioxide BUN Creatinine Glucose POC Glucose 130 H 144 H 144 H Calcium Magnesium Direct Bilirubin AST ALT Alkaline Phosphatase Total Creatine Kinase CK-MB (CK-2) CK-MB (CK-2) Rel Index Troponin T C-Reactive Protein Total Protein Albumin Triglycerides Ur Specific [place] Urine WBC (Auto) Miscellaneous Test 04/14/17 04/14/17 04/14/17 05:40 11:06 11:31 WBC RBC Hgb Hct MCV MCH RDW Plt Count Lymph % (Auto) [place] % (Auto) Eos % (Auto) Baso % (Auto) Lymph # Baso # Seg Neutrophils % Lymphocytes % (Manual) Monocytes % (Manual) Nucleated RBC % Seg Neutrophils # Seg Neutrophils # Man Monocytes # (Manual) PT INR Activated Clotting Time POC ABG pH POC ABG pCO2 POC ABG pO2 Sodium Potassium Chloride Carbon Dioxide BUN Creatinine Glucose POC Glucose 139 H 123 H Calcium Magnesium Direct Bilirubin AST ALT Alkaline Phosphatase Total Creatine Kinase CK-MB (CK-2) CK-MB (CK-2) Rel Index Troponin T C-Reactive Protein Total Protein Albumin Triglycerides Ur Specific [place] 1.033 H Urine WBC (Auto) > 182.0 H Miscellaneous Test 04/14/17 04/14/17 04/15/17 18:00 23:52 05:15 WBC 12.5 H RBC 3.38 L Hgb 10.6 L Hct 32.7 L MCV 97 H MCH RDW Plt Count 107 L Lymph % (Auto) 8.7 L [place] % (Auto) Eos % (Auto) Baso % (Auto) Lymph # 1.1 L Baso # Seg Neutrophils % 86.1 H Lymphocytes % (Manual) Monocytes % (Manual) Nucleated RBC % Seg Neutrophils # 10.7 H Seg Neutrophils # Man Monocytes # (Manual) PT INR Activated Clotting Time POC ABG pH POC ABG pCO2 POC ABG pO2 Sodium Potassium Chloride Carbon Dioxide BUN Creatinine Glucose POC Glucose 133 H 133 H Calcium Magnesium Direct Bilirubin AST ALT Alkaline Phosphatase Total Creatine Kinase CK-MB (CK-2) CK-MB (CK-2) Rel Index Troponin T C-Reactive Protein Total Protein Albumin Triglycerides Ur Specific [place] Urine WBC (Auto) Miscellaneous Test 04/15/17 04/15/17 04/15/17 05:15 05:25 11:50 WBC RBC Hgb Hct MCV MCH RDW Plt Count Lymph % (Auto) [place] % (Auto) Eos % (Auto) Baso % (Auto) Lymph # Baso # Seg Neutrophils % Lymphocytes % (Manual) Monocytes % (Manual) Nucleated RBC % Seg Neutrophils # Seg Neutrophils # Man Monocytes # (Manual) PT INR Activated Clotting Time POC ABG pH POC ABG pCO2 POC ABG pO2 Sodium 149 H Potassium 3.5 L Chloride 114.1 H Carbon Dioxide 21 L BUN 29 H Creatinine 0.4 L Glucose 128 H POC Glucose 133 H 107 H Calcium 8.3 L Magnesium Direct Bilirubin 0.4 H AST 149 H ALT 182 H Alkaline Phosphatase 143 H Total Creatine Kinase CK-MB (CK-2) CK-MB (CK-2) Rel Index Troponin T C-Reactive Protein Total Protein Albumin 2.5 L Triglycerides Ur Specific [place] Urine WBC (Auto) Miscellaneous Test 04/15/17 04/16/17 04/16/17 16:55 00:02 03:17 WBC RBC 3.39 L Hgb 10.5 L Hct 32.4 L MCV 96 H MCH RDW Plt Count 106 L Lymph % (Auto) 6.7 L [place] % (Auto) Eos % (Auto) Baso % (Auto) Lymph # 0.6 L Baso # Seg Neutrophils % 86.8 H Lymphocytes % (Manual) Monocytes % (Manual) Nucleated RBC % Seg Neutrophils # 8.2 H Seg Neutrophils # Man Monocytes # (Manual) PT INR Activated Clotting Time POC ABG pH POC ABG pCO2 POC ABG pO2 Sodium Potassium Chloride Carbon Dioxide BUN Creatinine Glucose POC Glucose 146 H 148 H Calcium Magnesium Direct Bilirubin AST ALT Alkaline Phosphatase Total Creatine Kinase CK-MB (CK-2) CK-MB (CK-2) Rel Index Troponin T C-Reactive Protein Total Protein Albumin Triglycerides Ur Specific [place] Urine WBC (Auto) Miscellaneous Test 04/16/17 04/16/17 04/16/17 03:17 05:19 11:13 WBC RBC Hgb Hct MCV MCH RDW Plt Count Lymph % (Auto) [place] % (Auto) Eos % (Auto) Baso % (Auto) Lymph # Baso # Seg Neutrophils % Lymphocytes % (Manual) Monocytes % (Manual) Nucleated RBC % Seg Neutrophils # Seg Neutrophils # Man Monocytes # (Manual) PT INR Activated Clotting Time POC ABG pH POC ABG pCO2 POC ABG pO2 Sodium 149 H Potassium Chloride 111.1 H Carbon Dioxide 20 L BUN 27 H Creatinine 0.3 L Glucose 156 H POC Glucose 171 H 169 H Calcium 8.3 L Magnesium Direct Bilirubin AST ALT Alkaline Phosphatase Total Creatine Kinase CK-MB (CK-2) CK-MB (CK-2) Rel Index Troponin T C-Reactive Protein Total Protein Albumin Triglycerides Ur Specific [place] Urine WBC (Auto) Miscellaneous Test 04/16/17 04/17/17 04/17/17 17:03 00:00 05:09 WBC RBC Hgb Hct MCV MCH RDW Plt Count Lymph % (Auto) [place] % (Auto) Eos % (Auto) Baso % (Auto) Lymph # Baso # Seg Neutrophils % Lymphocytes % (Manual) Monocytes % (Manual) Nucleated RBC % Seg Neutrophils # Seg Neutrophils # Man Monocytes # (Manual) PT INR Activated Clotting Time POC ABG pH POC ABG pCO2 POC ABG pO2 Sodium Potassium Chloride Carbon Dioxide BUN Creatinine Glucose POC Glucose 151 H 165 H 145 H Calcium Magnesium Direct Bilirubin AST ALT Alkaline Phosphatase Total Creatine Kinase CK-MB (CK-2) CK-MB (CK-2) Rel Index Troponin T C-Reactive Protein Total Protein Albumin Triglycerides Ur Specific [place] Urine WBC (Auto) Miscellaneous Test 04/17/17 04/17/17 04/18/17 11:38 17:47 00:01 WBC RBC Hgb Hct MCV MCH RDW Plt Count Lymph % (Auto) [place] % (Auto) Eos % (Auto) Baso % (Auto) Lymph # Baso # Seg Neutrophils % Lymphocytes % (Manual) Monocytes % (Manual) Nucleated RBC % Seg Neutrophils # Seg Neutrophils # Man Monocytes # (Manual) PT INR Activated Clotting Time POC ABG pH POC ABG pCO2 POC ABG pO2 Sodium Potassium Chloride Carbon Dioxide BUN Creatinine Glucose POC Glucose 170 H 161 H 131 H Calcium Magnesium Direct Bilirubin AST ALT Alkaline Phosphatase Total Creatine Kinase CK-MB (CK-2) CK-MB (CK-2) Rel Index Troponin T C-Reactive Protein Total Protein Albumin Triglycerides Ur Specific [place] Urine WBC (Auto) Miscellaneous Test 04/18/17 04/18/17 04/18/17 03:55 03:55 05:30 WBC RBC 3.05 L Hgb 9.8 L Hct 29.0 L MCV 95 H MCH RDW Plt Count 113 L Lymph % (Auto) [place] % (Auto) Eos % (Auto) 5.3 H Baso % (Auto) Lymph # Baso # Seg Neutrophils % 71.5 H Lymphocytes % (Manual) Monocytes % (Manual) Nucleated RBC % Seg Neutrophils # Seg Neutrophils # Man Monocytes # (Manual) PT INR Activated Clotting Time POC ABG pH 7.460 H POC ABG pCO2 30.8 L POC ABG pO2 129 H Sodium Potassium Chloride Carbon Dioxide 21 L BUN 25 H Creatinine 0.4 L Glucose 123 H POC Glucose Calcium 8.3 L Magnesium Direct Bilirubin AST ALT Alkaline Phosphatase Total Creatine Kinase CK-MB (CK-2) CK-MB (CK-2) Rel Index Troponin T C-Reactive Protein Total Protein Albumin Triglycerides Ur Specific [place] Urine WBC (Auto) Miscellaneous Test 04/18/17 04/18/17 04/19/17 17:10 23:40 04:36 WBC RBC 3.21 L Hgb 10.2 L Hct 30.4 L MCV 95 H MCH RDW Plt Count 131 L Lymph % (Auto) 12.1 L [place] % (Auto) Eos % (Auto) 4.7 H Baso % (Auto) 2.4 H Lymph # 0.9 L Baso # 0.2 H Seg Neutrophils % 75.0 H Lymphocytes % (Manual) Monocytes % (Manual) Nucleated RBC % Seg Neutrophils # Seg Neutrophils # Man Monocytes # (Manual) PT INR Activated Clotting Time POC ABG pH POC ABG pCO2 POC ABG pO2 Sodium Potassium Chloride Carbon Dioxide BUN Creatinine Glucose POC Glucose 135 H 157 H Calcium Magnesium Direct Bilirubin AST ALT Alkaline Phosphatase Total Creatine Kinase CK-MB (CK-2) CK-MB (CK-2) Rel Index Troponin T C-Reactive Protein Total Protein Albumin Triglycerides Ur Specific [place] Urine WBC (Auto) Miscellaneous Test 04/19/17 04/19/17 04/19/17 04:36 05:12 06:50 WBC RBC Hgb Hct MCV MCH RDW Plt Count Lymph % (Auto) [place] % (Auto) Eos % (Auto) Baso % (Auto) Lymph # Baso # Seg Neutrophils % Lymphocytes % (Manual) Monocytes % (Manual) Nucleated RBC % Seg Neutrophils # Seg Neutrophils # Man Monocytes # (Manual) PT INR Activated Clotting Time POC ABG pH 7.516 H POC ABG pCO2 28.0 L POC ABG pO2 Sodium Potassium Chloride Carbon Dioxide 21 L BUN 23 H Creatinine 0.2 L Glucose 137 H POC Glucose 131 H Calcium 7.9 L Magnesium Direct Bilirubin AST ALT Alkaline Phosphatase Total Creatine Kinase CK-MB (CK-2) CK-MB (CK-2) Rel Index Troponin T C-Reactive Protein Total Protein Albumin Triglycerides Ur Specific [place] Urine WBC (Auto) Miscellaneous Test 04/19/17 04/19/17 04/20/17 12:36 17:42 00:12 WBC RBC Hgb Hct MCV MCH RDW Plt Count Lymph % (Auto) [place] % (Auto) Eos % (Auto) Baso % (Auto) Lymph # Baso # Seg Neutrophils % Lymphocytes % (Manual) Monocytes % (Manual) Nucleated RBC % Seg Neutrophils # Seg Neutrophils # Man Monocytes # (Manual) PT INR Activated Clotting Time POC ABG pH POC ABG pCO2 POC ABG pO2 Sodium Potassium Chloride Carbon Dioxide BUN Creatinine Glucose POC Glucose 128 H 140 H 132 H Calcium Magnesium Direct Bilirubin AST ALT Alkaline Phosphatase Total Creatine Kinase CK-MB (CK-2) CK-MB (CK-2) Rel Index Troponin T C-Reactive Protein Total Protein Albumin Triglycerides Ur Specific [place] Urine WBC (Auto) Miscellaneous Test 04/20/17 04/20/17 04/20/17 03:35 03:35 05:10 WBC RBC 3.34 L Hgb 10.4 L Hct 31.6 L MCV 95 H MCH RDW Plt Count Lymph % (Auto) 12.9 L [place] % (Auto) Eos % (Auto) Baso % (Auto) Lymph # Baso # Seg Neutrophils % 77.3 H Lymphocytes % (Manual) Monocytes % (Manual) Nucleated RBC % Seg Neutrophils # Seg Neutrophils # Man Monocytes # (Manual) PT INR Activated Clotting Time POC ABG pH POC ABG pCO2 POC ABG pO2 Sodium Potassium Chloride Carbon Dioxide BUN Creatinine 0.3 L Glucose 155 H POC Glucose 135 H Calcium 7.8 L Magnesium Direct Bilirubin AST ALT Alkaline Phosphatase Total Creatine Kinase CK-MB (CK-2) CK-MB (CK-2) Rel Index Troponin T C-Reactive Protein Total Protein Albumin Triglycerides Ur Specific [place] Urine WBC (Auto) Miscellaneous Test 04/20/17 04/20/17 04/21/17 12:49 18:21 00:05 WBC RBC Hgb Hct MCV MCH RDW Plt Count Lymph % (Auto) [place] % (Auto) Eos % (Auto) Baso % (Auto) Lymph # Baso # Seg Neutrophils % Lymphocytes % (Manual) Monocytes % (Manual) Nucleated RBC % Seg Neutrophils # Seg Neutrophils # Man Monocytes # (Manual) PT INR Activated Clotting Time POC ABG pH POC ABG pCO2 POC ABG pO2 Sodium Potassium Chloride Carbon Dioxide BUN Creatinine Glucose POC Glucose 155 H 165 H 141 H Calcium Magnesium Direct Bilirubin AST ALT Alkaline Phosphatase Total Creatine Kinase CK-MB (CK-2) CK-MB (CK-2) Rel Index Troponin T C-Reactive Protein Total Protein Albumin Triglycerides Ur Specific [place] Urine WBC (Auto) Miscellaneous Test 04/21/17 04/21/17 04/21/17 06:00 12:11 17:04 WBC RBC Hgb Hct MCV MCH RDW Plt Count Lymph % (Auto) [place] % (Auto) Eos % (Auto) Baso % (Auto) Lymph # Baso # Seg Neutrophils % Lymphocytes % (Manual) Monocytes % (Manual) Nucleated RBC % Seg Neutrophils # Seg Neutrophils # Man Monocytes # (Manual) PT INR Activated Clotting Time POC ABG pH POC ABG pCO2 POC ABG pO2 Sodium Potassium Chloride Carbon Dioxide BUN Creatinine Glucose POC Glucose 152 H 165 H 156 H Calcium Magnesium Direct Bilirubin AST ALT Alkaline Phosphatase Total Creatine Kinase CK-MB (CK-2) CK-MB (CK-2) Rel Index Troponin T C-Reactive Protein Total Protein Albumin Triglycerides Ur Specific [place] Urine WBC (Auto) Miscellaneous Test 04/21/17 04/21/17 04/22/17 22:00 23:59 05:49 WBC RBC Hgb Hct MCV MCH RDW Plt Count Lymph % (Auto) [place] % (Auto) Eos % (Auto) Baso % (Auto) Lymph # Baso # Seg Neutrophils % Lymphocytes % (Manual) Monocytes % (Manual) Nucleated RBC % Seg Neutrophils # Seg Neutrophils # Man Monocytes # (Manual) PT INR Activated Clotting Time POC ABG pH POC ABG pCO2 POC ABG pO2 Sodium Potassium Chloride Carbon Dioxide BUN Creatinine Glucose POC Glucose 166 H 173 H Calcium Magnesium Direct Bilirubin AST ALT Alkaline Phosphatase Total Creatine Kinase CK-MB (CK-2) CK-MB (CK-2) Rel Index Troponin T C-Reactive Protein Total Protein Albumin Triglycerides Ur Specific [place] Urine WBC (Auto) 10.0 H Miscellaneous Test 04/22/17 04/22/17 04/23/17 11:11 18:04 00:37 WBC RBC Hgb Hct MCV MCH RDW Plt Count Lymph % (Auto) [place] % (Auto) Eos % (Auto) Baso % (Auto) Lymph # Baso # Seg Neutrophils % Lymphocytes % (Manual) Monocytes % (Manual) Nucleated RBC % Seg Neutrophils # Seg Neutrophils # Man Monocytes # (Manual) PT INR Activated Clotting Time POC ABG pH POC ABG pCO2 POC ABG pO2 Sodium Potassium Chloride Carbon Dioxide BUN Creatinine Glucose POC Glucose 172 H 140 H 135 H Calcium Magnesium Direct Bilirubin AST ALT Alkaline Phosphatase Total Creatine Kinase CK-MB (CK-2) CK-MB (CK-2) Rel Index Troponin T C-Reactive Protein Total Protein Albumin Triglycerides Ur Specific [place] Urine WBC (Auto) Miscellaneous Test 04/23/17 04/23/17 04/23/17 05:33 06:20 11:10 WBC RBC 3.19 L Hgb 9.9 L Hct 30.0 L MCV MCH RDW Plt Count Lymph % (Auto) 8.0 L [place] % (Auto) Eos % (Auto) Baso % (Auto) Lymph # 0.8 L Baso # Seg Neutrophils % 84.5 H Lymphocytes % (Manual) Monocytes % (Manual) Nucleated RBC % Seg Neutrophils # 8.2 H Seg Neutrophils # Man Monocytes # (Manual) PT INR Activated Clotting Time POC ABG pH POC ABG pCO2 POC ABG pO2 Sodium Potassium Chloride Carbon Dioxide BUN Creatinine Glucose POC Glucose 134 H 134 H Calcium Magnesium Direct Bilirubin AST ALT Alkaline Phosphatase Total Creatine Kinase CK-MB (CK-2) CK-MB (CK-2) Rel Index Troponin T C-Reactive Protein Total Protein Albumin Triglycerides Ur Specific [place] Urine WBC (Auto) Miscellaneous Test 04/23/17 04/24/17 04/24/17 17:26 00:53 06:46 WBC RBC Hgb Hct MCV MCH RDW Plt Count Lymph % (Auto) [place] % (Auto) Eos % (Auto) Baso % (Auto) Lymph # Baso # Seg Neutrophils % Lymphocytes % (Manual) Monocytes % (Manual) Nucleated RBC % Seg Neutrophils # Seg Neutrophils # Man Monocytes # (Manual) PT INR Activated Clotting Time POC ABG pH POC ABG pCO2 POC ABG pO2 Sodium Potassium Chloride Carbon Dioxide BUN Creatinine Glucose POC Glucose 164 H 146 H 125 H Calcium Magnesium Direct Bilirubin AST ALT Alkaline Phosphatase Total Creatine Kinase CK-MB (CK-2) CK-MB (CK-2) Rel Index Troponin T C-Reactive Protein Total Protein Albumin Triglycerides Ur Specific [place] Urine WBC (Auto) Miscellaneous Test 04/24/17 04/24/17 04/24/17 11:55 17:50 23:36 WBC RBC Hgb Hct MCV MCH RDW Plt Count Lymph % (Auto) [place] % (Auto) Eos % (Auto) Baso % (Auto) Lymph # Baso # Seg Neutrophils % Lymphocytes % (Manual) Monocytes % (Manual) Nucleated RBC % Seg Neutrophils # Seg Neutrophils # Man Monocytes # (Manual) PT INR Activated Clotting Time POC ABG pH POC ABG pCO2 POC ABG pO2 Sodium Potassium Chloride Carbon Dioxide BUN Creatinine Glucose POC Glucose 156 H 146 H 131 H Calcium Magnesium Direct Bilirubin AST ALT Alkaline Phosphatase Total Creatine Kinase CK-MB (CK-2) CK-MB (CK-2) Rel Index Troponin T C-Reactive Protein Total Protein Albumin Triglycerides Ur Specific [place] Urine WBC (Auto) Miscellaneous Test 04/25/17 04/25/17 04/25/17 04:51 05:16 07:07 WBC RBC Hgb Hct MCV MCH RDW Plt Count Lymph % (Auto) [place] % (Auto) Eos % (Auto) Baso % (Auto) Lymph # Baso # Seg Neutrophils % Lymphocytes % (Manual) Monocytes % (Manual) Nucleated RBC % Seg Neutrophils # Seg Neutrophils # Man Monocytes # (Manual) PT INR Activated Clotting Time POC ABG pH POC ABG pCO2 POC ABG pO2 Sodium Potassium Chloride Carbon Dioxide BUN Creatinine Glucose POC Glucose 139 H Calcium Magnesium Direct Bilirubin AST 105 H ALT 204 H Alkaline Phosphatase 189 H Total Creatine Kinase CK-MB (CK-2) CK-MB (CK-2) Rel Index Troponin T C-Reactive Protein Total Protein Albumin 2.4 L Triglycerides Ur Specific [place] Urine WBC (Auto) Miscellaneous Test Flexitest 1 H 04/25/17 04/25/17 04/25/17 12:29 17:23 23:32 WBC RBC Hgb Hct MCV MCH RDW Plt Count Lymph % (Auto) [place] % (Auto) Eos % (Auto) Baso % (Auto) Lymph # Baso # Seg Neutrophils % Lymphocytes % (Manual) Monocytes % (Manual) Nucleated RBC % Seg Neutrophils # Seg Neutrophils # Man Monocytes # (Manual) PT INR Activated Clotting Time POC ABG pH POC ABG pCO2 POC ABG pO2 Sodium Potassium Chloride Carbon Dioxide BUN Creatinine Glucose POC Glucose 132 H 133 H 128 H Calcium Magnesium Direct Bilirubin AST ALT Alkaline Phosphatase Total Creatine Kinase CK-MB (CK-2) CK-MB (CK-2) Rel Index Troponin T C-Reactive Protein Total Protein Albumin Triglycerides Ur Specific [place] Urine WBC (Auto) Miscellaneous Test 04/26/17 04/26/17 04/26/17 05:24 11:28 17:09 WBC RBC Hgb Hct MCV MCH RDW Plt Count Lymph % (Auto) [place] % (Auto) Eos % (Auto) Baso % (Auto) Lymph # Baso # Seg Neutrophils % Lymphocytes % (Manual) Monocytes % (Manual) Nucleated RBC % Seg Neutrophils # Seg Neutrophils # Man Monocytes # (Manual) PT INR Activated Clotting Time POC ABG pH POC ABG pCO2 POC ABG pO2 Sodium Potassium Chloride Carbon Dioxide BUN Creatinine Glucose POC Glucose 132 H 146 H 141 H Calcium Magnesium Direct Bilirubin AST ALT Alkaline Phosphatase Total Creatine Kinase CK-MB (CK-2) CK-MB (CK-2) Rel Index Troponin T C-Reactive Protein Total Protein Albumin Triglycerides Ur Specific [place] Urine WBC (Auto) Miscellaneous Test 04/26/17 04/27/17 04/27/17 23:52 05:40 05:40 WBC RBC 3.22 L Hgb 10.0 L Hct 29.9 L MCV MCH RDW Plt Count Lymph % (Auto) [place] % (Auto) Eos % (Auto) Baso % (Auto) Lymph # Baso # Seg Neutrophils % 76.6 H Lymphocytes % (Manual) Monocytes % (Manual) Nucleated RBC % Seg Neutrophils # Seg Neutrophils # Man Monocytes # (Manual) PT INR Activated Clotting Time POC ABG pH POC ABG pCO2 POC ABG pO2 Sodium Potassium Chloride Carbon Dioxide BUN Creatinine Glucose POC Glucose 140 H Calcium Magnesium Direct Bilirubin AST 66 H ALT 137 H Alkaline Phosphatase 169 H Total Creatine Kinase CK-MB (CK-2) CK-MB (CK-2) Rel Index Troponin T C-Reactive Protein Total Protein 6.2 L Albumin 2.6 L Triglycerides Ur Specific [place] Urine WBC (Auto) Miscellaneous Test 04/27/17 04/27/17 04/27/17 05:40 06:10 11:13 WBC RBC Hgb Hct MCV MCH RDW Plt Count Lymph % (Auto) [place] % (Auto) Eos % (Auto) Baso % (Auto) Lymph # Baso # Seg Neutrophils % Lymphocytes % (Manual) Monocytes % (Manual) Nucleated RBC % Seg Neutrophils # Seg Neutrophils # Man Monocytes # (Manual) PT INR Activated Clotting Time POC ABG pH POC ABG pCO2 POC ABG pO2 Sodium Potassium Chloride Carbon Dioxide BUN Creatinine 0.2 L Glucose 139 H POC Glucose 130 H 151 H Calcium Magnesium Direct Bilirubin AST ALT Alkaline Phosphatase Total Creatine Kinase CK-MB (CK-2) CK-MB (CK-2) Rel Index Troponin T C-Reactive Protein Total Protein Albumin Triglycerides Ur Specific [place] Urine WBC (Auto) Miscellaneous Test 04/27/17 04/27/17 04/28/17 17:37 23:19 05:24 WBC RBC Hgb Hct MCV MCH RDW Plt Count Lymph % (Auto) [place] % (Auto) Eos % (Auto) Baso % (Auto) Lymph # Baso # Seg Neutrophils % Lymphocytes % (Manual) Monocytes % (Manual) Nucleated RBC % Seg Neutrophils # Seg Neutrophils # Man Monocytes # (Manual) PT INR Activated Clotting Time POC ABG pH POC ABG pCO2 POC ABG pO2 Sodium Potassium Chloride Carbon Dioxide BUN Creatinine Glucose POC Glucose 159 H 130 H 132 H Calcium Magnesium Direct Bilirubin AST ALT Alkaline Phosphatase Total Creatine Kinase CK-MB (CK-2) CK-MB (CK-2) Rel Index Troponin T C-Reactive Protein Total Protein Albumin Triglycerides Ur Specific [place] Urine WBC (Auto) Miscellaneous Test 04/28/17 04/28/17 04/28/17 11:15 17:38 23:23 WBC RBC Hgb Hct MCV MCH RDW Plt Count Lymph % (Auto) [place] % (Auto) Eos % (Auto) Baso % (Auto) Lymph # Baso # Seg Neutrophils % Lymphocytes % (Manual) Monocytes % (Manual) Nucleated RBC % Seg Neutrophils # Seg Neutrophils # Man Monocytes # (Manual) PT INR Activated Clotting Time POC ABG pH POC ABG pCO2 POC ABG pO2 Sodium Potassium Chloride Carbon Dioxide BUN Creatinine Glucose POC Glucose 162 H 133 H 138 H Calcium Magnesium Direct Bilirubin AST ALT Alkaline Phosphatase Total Creatine Kinase CK-MB (CK-2) CK-MB (CK-2) Rel Index Troponin T C-Reactive Protein Total Protein Albumin Triglycerides Ur Specific [place] Urine WBC (Auto) Miscellaneous Test 04/29/17 04/29/17 04/29/17 05:15 12:55 17:21 WBC RBC Hgb Hct MCV MCH RDW Plt Count Lymph % (Auto) [place] % (Auto) Eos % (Auto) Baso % (Auto) Lymph # Baso # Seg Neutrophils % Lymphocytes % (Manual) Monocytes % (Manual) Nucleated RBC % Seg Neutrophils # Seg Neutrophils # Man Monocytes # (Manual) PT INR Activated Clotting Time POC ABG pH POC ABG pCO2 POC ABG pO2 Sodium Potassium Chloride Carbon Dioxide BUN Creatinine Glucose POC Glucose 135 H 127 H 138 H Calcium Magnesium Direct Bilirubin AST ALT Alkaline Phosphatase Total Creatine Kinase CK-MB (CK-2) CK-MB (CK-2) Rel Index Troponin T C-Reactive Protein Total Protein Albumin Triglycerides Ur Specific [place] Urine WBC (Auto) Miscellaneous Test 04/29/17 04/30/17 04/30/17 23:52 04:55 12:22 WBC RBC Hgb Hct MCV MCH RDW Plt Count Lymph % (Auto) [place] % (Auto) Eos % (Auto) Baso % (Auto) Lymph # Baso # Seg Neutrophils % Lymphocytes % (Manual) Monocytes % (Manual) Nucleated RBC % Seg Neutrophils # Seg Neutrophils # Man Monocytes # (Manual) PT INR Activated Clotting Time POC ABG pH POC ABG pCO2 POC ABG pO2 Sodium Potassium Chloride Carbon Dioxide BUN Creatinine Glucose POC Glucose 142 H 146 H 132 H Calcium Magnesium Direct Bilirubin AST ALT Alkaline Phosphatase Total Creatine Kinase CK-MB (CK-2) CK-MB (CK-2) Rel Index Troponin T C-Reactive Protein Total Protein Albumin Triglycerides Ur Specific [place] Urine WBC (Auto) Miscellaneous Test 04/30/17 04/30/17 04/30/17 14:25 17:47 18:20 WBC RBC Hgb Hct MCV MCH RDW Plt Count Lymph % (Auto) [place] % (Auto) Eos % (Auto) Baso % (Auto) Lymph # Baso # Seg Neutrophils % Lymphocytes % (Manual) Monocytes % (Manual) Nucleated RBC % Seg Neutrophils # Seg Neutrophils # Man Monocytes # (Manual) PT INR Activated Clotting Time POC ABG pH 7.551 H POC ABG pCO2 32.7 L POC ABG pO2 Sodium Potassium Chloride Carbon Dioxide BUN 21 H Creatinine 0.2 L Glucose 141 H POC Glucose 139 H Calcium Magnesium Direct Bilirubin AST ALT Alkaline Phosphatase Total Creatine Kinase CK-MB (CK-2) CK-MB (CK-2) Rel Index Troponin T C-Reactive Protein Total Protein Albumin Triglycerides Ur Specific [place] Urine WBC (Auto) Miscellaneous Test 05/01/17 05/01/17 05/01/17 01:26 05:30 05:30 WBC RBC 3.49 L Hgb 10.3 L Hct 31.9 L MCV MCH RDW Plt Count Lymph % (Auto) [place] % (Auto) 8.1 H Eos % (Auto) Baso % (Auto) Lymph # Baso # Seg Neutrophils % 71.3 H Lymphocytes % (Manual) Monocytes % (Manual) Nucleated RBC % Seg Neutrophils # Seg Neutrophils # Man Monocytes # (Manual) PT INR Activated Clotting Time POC ABG pH POC ABG pCO2 POC ABG pO2 Sodium 136 L Potassium Chloride 97.6 L Carbon Dioxide BUN Creatinine 0.2 L Glucose 123 H POC Glucose 116 H Calcium Magnesium Direct Bilirubin AST 71 H ALT 125 H Alkaline Phosphatase 158 H Total Creatine Kinase CK-MB (CK-2) CK-MB (CK-2) Rel Index Troponin T C-Reactive Protein Total Protein Albumin 2.6 L Triglycerides Ur Specific [place] Urine WBC (Auto) Miscellaneous Test 05/01/17 05/01/17 05/02/17 11:59 17:23 00:08 WBC RBC Hgb Hct MCV MCH RDW Plt Count Lymph % (Auto) [place] % (Auto) Eos % (Auto) Baso % (Auto) Lymph # Baso # Seg Neutrophils % Lymphocytes % (Manual) Monocytes % (Manual) Nucleated RBC % Seg Neutrophils # Seg Neutrophils # Man Monocytes # (Manual) PT INR Activated Clotting Time POC ABG pH POC ABG pCO2 POC ABG pO2 Sodium Potassium Chloride Carbon Dioxide BUN Creatinine Glucose POC Glucose 118 H 144 H 122 H Calcium Magnesium Direct Bilirubin AST ALT Alkaline Phosphatase Total Creatine Kinase CK-MB (CK-2) CK-MB (CK-2) Rel Index Troponin T C-Reactive Protein Total Protein Albumin Triglycerides Ur Specific [place] Urine WBC (Auto) Miscellaneous Test 05/02/17 05/02/17 05/02/17 05:50 11:21 17:48 WBC RBC Hgb Hct MCV MCH RDW Plt Count Lymph % (Auto) [place] % (Auto) Eos % (Auto) Baso % (Auto) Lymph # Baso # Seg Neutrophils % Lymphocytes % (Manual) Monocytes % (Manual) Nucleated RBC % Seg Neutrophils # Seg Neutrophils # Man Monocytes # (Manual) PT INR Activated Clotting Time POC ABG pH POC ABG pCO2 POC ABG pO2 Sodium Potassium Chloride Carbon Dioxide BUN Creatinine Glucose POC Glucose 120 H 121 H 140 H Calcium Magnesium Direct Bilirubin AST ALT Alkaline Phosphatase Total Creatine Kinase CK-MB (CK-2) CK-MB (CK-2) Rel Index Troponin T C-Reactive Protein Total Protein Albumin Triglycerides Ur Specific [place] Urine WBC (Auto) Miscellaneous Test 05/02/17 05/03/17 05/03/17 23:12 05:35 11:52 WBC RBC Hgb Hct MCV MCH RDW Plt Count Lymph % (Auto) [place] % (Auto) Eos % (Auto) Baso % (Auto) Lymph # Baso # Seg Neutrophils % Lymphocytes % (Manual) Monocytes % (Manual) Nucleated RBC % Seg Neutrophils # Seg Neutrophils # Man Monocytes # (Manual) PT INR Activated Clotting Time POC ABG pH POC ABG pCO2 POC ABG pO2 Sodium Potassium Chloride Carbon Dioxide BUN Creatinine Glucose POC Glucose 128 H 113 H 126 H Calcium Magnesium Direct Bilirubin AST ALT Alkaline Phosphatase Total Creatine Kinase CK-MB (CK-2) CK-MB (CK-2) Rel Index Troponin T C-Reactive Protein Total Protein Albumin Triglycerides Ur Specific [place] Urine WBC (Auto) Miscellaneous Test 05/03/17 05/03/17 05/04/17 17:29 23:26 04:55 WBC RBC Hgb Hct MCV MCH RDW Plt Count Lymph % (Auto) [place] % (Auto) Eos % (Auto) Baso % (Auto) Lymph # Baso # Seg Neutrophils % Lymphocytes % (Manual) Monocytes % (Manual) Nucleated RBC % Seg Neutrophils # Seg Neutrophils # Man Monocytes # (Manual) PT INR Activated Clotting Time POC ABG pH POC ABG pCO2 POC ABG pO2 Sodium Potassium Chloride Carbon Dioxide BUN Creatinine Glucose POC Glucose 141 H 129 H 126 H Calcium Magnesium Direct Bilirubin AST ALT Alkaline Phosphatase Total Creatine Kinase CK-MB (CK-2) CK-MB (CK-2) Rel Index Troponin T C-Reactive Protein Total Protein Albumin Triglycerides Ur Specific [place] Urine WBC (Auto) Miscellaneous Test 05/04/17 05/04/17 05/05/17 12:09 17:46 00:06 WBC RBC Hgb Hct MCV MCH RDW Plt Count Lymph % (Auto) [place] % (Auto) Eos % (Auto) Baso % (Auto) Lymph # Baso # Seg Neutrophils % Lymphocytes % (Manual) Monocytes % (Manual) Nucleated RBC % Seg Neutrophils # Seg Neutrophils # Man Monocytes # (Manual) PT INR Activated Clotting Time POC ABG pH POC ABG pCO2 POC ABG pO2 Sodium Potassium Chloride Carbon Dioxide BUN Creatinine Glucose POC Glucose 125 H 125 H 110 H Calcium Magnesium Direct Bilirubin AST ALT Alkaline Phosphatase Total Creatine Kinase CK-MB (CK-2) CK-MB (CK-2) Rel Index Troponin T C-Reactive Protein Total Protein Albumin Triglycerides Ur Specific [place] Urine WBC (Auto) Miscellaneous Test 05/05/17 05/05/17 05/05/17 05:48 11:41 16:19 WBC RBC Hgb Hct MCV MCH RDW Plt Count Lymph % (Auto) [place] % (Auto) Eos % (Auto) Baso % (Auto) Lymph # Baso # Seg Neutrophils % Lymphocytes % (Manual) Monocytes % (Manual) Nucleated RBC % Seg Neutrophils # Seg Neutrophils # Man Monocytes # (Manual) PT INR Activated Clotting Time POC ABG pH POC ABG pCO2 POC ABG pO2 Sodium Potassium Chloride Carbon Dioxide BUN Creatinine Glucose POC Glucose 124 H 122 H 120 H Calcium Magnesium Direct Bilirubin AST ALT Alkaline Phosphatase Total Creatine Kinase CK-MB (CK-2) CK-MB (CK-2) Rel Index Troponin T C-Reactive Protein Total Protein Albumin Triglycerides Ur Specific [place] Urine WBC (Auto) Miscellaneous Test 05/06/17 05/06/17 05/06/17 00:16 05:47 11:42 WBC RBC Hgb Hct MCV MCH RDW Plt Count Lymph % (Auto) [place] % (Auto) Eos % (Auto) Baso % (Auto) Lymph # Baso # Seg Neutrophils % Lymphocytes % (Manual) Monocytes % (Manual) Nucleated RBC % Seg Neutrophils # Seg Neutrophils # Man Monocytes # (Manual) PT INR Activated Clotting Time POC ABG pH POC ABG pCO2 POC ABG pO2 Sodium Potassium Chloride Carbon Dioxide BUN Creatinine Glucose POC Glucose 110 H 142 H 120 H Calcium Magnesium Direct Bilirubin AST ALT Alkaline Phosphatase Total Creatine Kinase CK-MB (CK-2) CK-MB (CK-2) Rel Index Troponin T C-Reactive Protein Total Protein Albumin Triglycerides Ur Specific [place] Urine WBC (Auto) Miscellaneous Test 05/06/17 05/07/17 05/07/17 17:46 00:07 05:28 WBC RBC Hgb Hct MCV MCH RDW Plt Count Lymph % (Auto) [place] % (Auto) Eos % (Auto) Baso % (Auto) Lymph # Baso # Seg Neutrophils % Lymphocytes % (Manual) Monocytes % (Manual) Nucleated RBC % Seg Neutrophils # Seg Neutrophils # Man Monocytes # (Manual) PT INR Activated Clotting Time POC ABG pH POC ABG pCO2 POC ABG pO2 Sodium Potassium Chloride Carbon Dioxide BUN Creatinine Glucose POC Glucose 127 H 145 H 124 H Calcium Magnesium Direct Bilirubin AST ALT Alkaline Phosphatase Total Creatine Kinase CK-MB (CK-2) CK-MB (CK-2) Rel Index Troponin T C-Reactive Protein Total Protein Albumin Triglycerides Ur Specific [place] Urine WBC (Auto) Miscellaneous Test 05/07/17 05/07/17 05/08/17 11:17 17:14 00:03 WBC RBC Hgb Hct MCV MCH RDW Plt Count Lymph % (Auto) [place] % (Auto) Eos % (Auto) Baso % (Auto) Lymph # Baso # Seg Neutrophils % Lymphocytes % (Manual) Monocytes % (Manual) Nucleated RBC % Seg Neutrophils # Seg Neutrophils # Man Monocytes # (Manual) PT INR Activated Clotting Time POC ABG pH POC ABG pCO2 POC ABG pO2 Sodium Potassium Chloride Carbon Dioxide BUN Creatinine Glucose POC Glucose 144 H 125 H 122 H Calcium Magnesium Direct Bilirubin AST ALT Alkaline Phosphatase Total Creatine Kinase CK-MB (CK-2) CK-MB (CK-2) Rel Index Troponin T C-Reactive Protein Total Protein Albumin Triglycerides Ur Specific [place] Urine WBC (Auto) Miscellaneous Test 05/08/17 05/08/17 05/08/17 05:43 12:07 18:02 WBC RBC Hgb Hct MCV MCH RDW Plt Count Lymph % (Auto) [place] % (Auto) Eos % (Auto) Baso % (Auto) Lymph # Baso # Seg Neutrophils % Lymphocytes % (Manual) Monocytes % (Manual) Nucleated RBC % Seg Neutrophils # Seg Neutrophils # Man Monocytes # (Manual) PT INR Activated Clotting Time POC ABG pH POC ABG pCO2 POC ABG pO2 Sodium Potassium Chloride Carbon Dioxide BUN Creatinine Glucose POC Glucose 117 H 114 H 129 H Calcium Magnesium Direct Bilirubin AST ALT Alkaline Phosphatase Total Creatine Kinase CK-MB (CK-2) CK-MB (CK-2) Rel Index Troponin T C-Reactive Protein Total Protein Albumin Triglycerides Ur Specific [place] Urine WBC (Auto) Miscellaneous Test 05/08/17 05/09/17 05/09/17 23:53 04:19 05:14 WBC RBC Hgb Hct MCV MCH RDW Plt Count Lymph % (Auto) [place] % (Auto) Eos % (Auto) Baso % (Auto) Lymph # Baso # Seg Neutrophils % Lymphocytes % (Manual) Monocytes % (Manual) Nucleated RBC % Seg Neutrophils # Seg Neutrophils # Man Monocytes # (Manual) PT INR Activated Clotting Time POC ABG pH 7.524 H POC ABG pCO2 34.7 L POC ABG pO2 107 H Sodium Potassium Chloride Carbon Dioxide BUN Creatinine Glucose POC Glucose 125 H 118 H Calcium Magnesium Direct Bilirubin AST ALT Alkaline Phosphatase Total Creatine Kinase CK-MB (CK-2) CK-MB (CK-2) Rel Index Troponin T C-Reactive Protein Total Protein Albumin Triglycerides Ur Specific [place] Urine WBC (Auto) Miscellaneous Test 05/10/17 05/11/17 05/11/17 23:54 05:48 23:50 WBC RBC Hgb Hct MCV MCH RDW Plt Count Lymph % (Auto) [place] % (Auto) Eos % (Auto) Baso % (Auto) Lymph # Baso # Seg Neutrophils % Lymphocytes % (Manual) Monocytes % (Manual) Nucleated RBC % Seg Neutrophils # Seg Neutrophils # Man Monocytes # (Manual) PT INR Activated Clotting Time POC ABG pH POC ABG pCO2 POC ABG pO2 Sodium Potassium Chloride Carbon Dioxide BUN Creatinine Glucose POC Glucose 126 H 137 H 130 H Calcium Magnesium Direct Bilirubin AST ALT Alkaline Phosphatase Total Creatine Kinase CK-MB (CK-2) CK-MB (CK-2) Rel Index Troponin T C-Reactive Protein Total Protein Albumin Triglycerides Ur Specific [place] Urine WBC (Auto) Miscellaneous Test 05/12/17 05/12/17 05/12/17 05:48 11:33 18:00 WBC RBC Hgb Hct MCV MCH RDW Plt Count Lymph % (Auto) [place] % (Auto) Eos % (Auto) Baso % (Auto) Lymph # Baso # Seg Neutrophils % Lymphocytes % (Manual) Monocytes % (Manual) Nucleated RBC % Seg Neutrophils # Seg Neutrophils # Man Monocytes # (Manual) PT INR Activated Clotting Time POC ABG pH POC ABG pCO2 POC ABG pO2 Sodium Potassium Chloride Carbon Dioxide BUN Creatinine Glucose POC Glucose 126 H 116 H 131 H Calcium Magnesium Direct Bilirubin AST ALT Alkaline Phosphatase Total Creatine Kinase CK-MB (CK-2) CK-MB (CK-2) Rel Index Troponin T C-Reactive Protein Total Protein Albumin Triglycerides Ur Specific [place] Urine WBC (Auto) Miscellaneous Test 05/14/17 05/15/17 05/15/17 11:45 11:27 17:42 WBC RBC Hgb Hct MCV MCH RDW Plt Count Lymph % (Auto) [place] % (Auto) Eos % (Auto) Baso % (Auto) Lymph # Baso # Seg Neutrophils % Lymphocytes % (Manual) Monocytes % (Manual) Nucleated RBC % Seg Neutrophils # Seg Neutrophils # Man Monocytes # (Manual) PT INR Activated Clotting Time POC ABG pH POC ABG pCO2 POC ABG pO2 Sodium Potassium Chloride Carbon Dioxide BUN Creatinine Glucose POC Glucose 123 H 129 H 125 H Calcium Magnesium Direct Bilirubin AST ALT Alkaline Phosphatase Total Creatine Kinase CK-MB (CK-2) CK-MB (CK-2) Rel Index Troponin T C-Reactive Protein Total Protein Albumin Triglycerides Ur Specific [place] Urine WBC (Auto) Miscellaneous Test 05/16/17 05/16/1718 00:29 06:50 03:45 WBC RBC Hgb 11.7 L Hct 34.8 L MCV MCH RDW 15.5 H Plt Count Lymph % (Auto) [place] % (Auto) 7.7 H Eos % (Auto) Baso % (Auto) Lymph # Baso # Seg Neutrophils % 73.7 H Lymphocytes % (Manual) Monocytes % (Manual) Nucleated RBC % Seg Neutrophils # Seg Neutrophils # Man Monocytes # (Manual) PT INR Activated Clotting Time POC ABG pH POC ABG pCO2 POC ABG pO2 Sodium Potassium Chloride Carbon Dioxide BUN Creatinine Glucose POC Glucose 141 H 138 H Calcium Magnesium Direct Bilirubin AST ALT Alkaline Phosphatase Total Creatine Kinase CK-MB (CK-2) CK-MB (CK-2) Rel Index Troponin T C-Reactive Protein Total Protein Albumin Triglycerides Ur Specific [place] Urine WBC (Auto) Miscellaneous Test 05/17/17 05/20/17 05/23/17 03:45 17:31 23:09 WBC RBC Hgb Hct MCV MCH RDW Plt Count Lymph % (Auto) [place] % (Auto) Eos % (Auto) Baso % (Auto) Lymph # Baso # Seg Neutrophils % Lymphocytes % (Manual) Monocytes % (Manual) Nucleated RBC % Seg Neutrophils # Seg Neutrophils # Man Monocytes # (Manual) PT INR Activated Clotting Time POC ABG pH POC ABG pCO2 POC ABG pO2 Sodium Potassium Chloride Carbon Dioxide BUN Creatinine 0.2 L Glucose 131 H POC Glucose 116 H 122 H Calcium Magnesium Direct Bilirubin AST ALT Alkaline Phosphatase Total Creatine Kinase CK-MB (CK-2) CK-MB (CK-2) Rel Index Troponin T C-Reactive Protein Total Protein Albumin Triglycerides Ur Specific [place] Urine WBC (Auto) Miscellaneous Test 05/24/17 05/26/17 05/27/17 05:37 05:23 01:16 WBC RBC Hgb Hct MCV MCH RDW Plt Count Lymph % (Auto) [place] % (Auto) Eos % (Auto) Baso % (Auto) Lymph # Baso # Seg Neutrophils % Lymphocytes % (Manual) Monocytes % (Manual) Nucleated RBC % Seg Neutrophils # Seg Neutrophils # Man Monocytes # (Manual) PT INR Activated Clotting Time POC ABG pH POC ABG pCO2 POC ABG pO2 Sodium Potassium Chloride Carbon Dioxide BUN Creatinine Glucose POC Glucose 139 H 108 H 126 H Calcium Magnesium Direct Bilirubin AST ALT Alkaline Phosphatase Total Creatine Kinase CK-MB (CK-2) CK-MB (CK-2) Rel Index Troponin T C-Reactive Protein Total Protein Albumin Triglycerides Ur Specific [place] Urine WBC (Auto) Miscellaneous Test 05/27/17 05/27/17 05/29/17 05:33 21:49 04:37 WBC RBC Hgb Hct MCV MCH RDW 15.5 H Plt Count Lymph % (Auto) [place] % (Auto) Eos % (Auto) Baso % (Auto) Lymph # Baso # Seg Neutrophils % Lymphocytes % (Manual) Monocytes % (Manual) Nucleated RBC % Seg Neutrophils # Seg Neutrophils # Man Monocytes # (Manual) PT INR Activated Clotting Time POC ABG pH POC ABG pCO2 POC ABG pO2 Sodium Potassium Chloride Carbon Dioxide BUN Creatinine Glucose POC Glucose 129 H 110 H Calcium Magnesium Direct Bilirubin AST ALT Alkaline Phosphatase Total Creatine Kinase CK-MB (CK-2) CK-MB (CK-2) Rel Index Troponin T C-Reactive Protein Total Protein Albumin Triglycerides Ur Specific [place] Urine WBC (Auto) Miscellaneous Test 05/29/17 06/01/17 04:37 05:28 WBC RBC Hgb Hct MCV MCH RDW Plt Count Lymph % (Auto) [place] % (Auto) Eos % (Auto) Baso % (Auto) Lymph # Baso # Seg Neutrophils % Lymphocytes % (Manual) Monocytes % (Manual) Nucleated RBC % Seg Neutrophils # Seg Neutrophils # Man Monocytes # (Manual) PT INR Activated Clotting Time POC ABG pH POC ABG pCO2 POC ABG pO2 Sodium Potassium Chloride 97.6 L Carbon Dioxide BUN Creatinine 0.2 L Glucose 121 H POC Glucose 133 H Calcium Magnesium Direct Bilirubin AST ALT Alkaline Phosphatase Total Creatine Kinase CK-MB (CK-2) CK-MB (CK-2) Rel Index Troponin T C-Reactive Protein Total Protein Albumin Triglycerides Ur Specific [place] Urine WBC (Auto) Miscellaneous Test
[2017-06-09] MEDS ORDERED: NACL 0.9% 500 ML 500 ML IV ONE (10:36)
[2017-06-09] MEDS: PLAVIX PO SCH (11:22)
[2017-06-09] MEDS: PROTONIX FEEDTUBE SCH (11:23)
[2017-06-09] MEDS: ASPIRIN PO SCH (11:23)
[2017-06-09] MEDS: ZESTRIL PO SCH (11:23)
--- NOTE | 2017-06-09 15:35 | Progress Note ---
Assessment and Plan Assessment and plan: Anoxic encephalopathy STEMI, status post cardiac cath and stent placement Respiratory failure on trach on T-piece trial tolerating Aspiration pneumonia treated with Iv antibiotics DVT; on eliquis - No change from baseline - No Family member in the room to discuss a plan of care - If Vital signs are stable and off the MV, he will be transferred to the floor History Interval history: Patient was seen and evaluated this morning, no change from baseline, unresponsive, on trach and on T-piece trial. Hospitalist Physical - Physical exam Narrative exam: Patient has trach and on T-piece trial. The patient appeared well nourished and normally developed. Vital signs as documented. Head exam is unremarkable. No scleral icterus . Neck is without jugular venous distension, thyromegaly, or carotid bruits. Lungs are clear to auscultation. Cardiac exam reveals regular rate and Rhythm. First and second heart sounds normal. No murmurs, rubs or gallops. Abdominal exam reveals normal bowel sounds, no masses, no organomegaly and no aortic enlargement. Extremities are nonedematous and both femoral and pedal pulses are normal. GERONTOLOGY AIDE: In vegetative state - Constitutional Vitals: Temp Pulse Resp BP Pulse Ox 97.9 F 59 L 26 H 97/56 99 06/09/17 12:00 06/09/17 15:00 06/09/17 15:00 06/09/17 15:00 06/09/17 15:00 General appearance: Present: other (tracheostomy on vent) Results - Labs CBC & Chem 7: 05/29/17 04:37 05/29/17 04:37 Labs: Laboratory Last Values WBC 8.0 K/mm3 (4.5-11.0) 05/29/17 04:37 RBC 4.52 M/mm3 (3.65-5.03) 05/29/17 04:37 Hgb 13.6 gm/dl (11.8-15.2) 05/29/17 04:37 Hct 40.6 % (35.5-45.6) 05/29/17 04:37 MCV 90 fl (84-94) 05/29/17 04:37 MCH 30 pg (28-32) 05/29/17 04:37 MCHC 33 % (32-34) 05/29/17 04:37 RDW 15.5 % (13.2-15.2) H 05/29/17 04:37 Plt Count 222 K/mm3 (140-440) 05/29/17 04:37 Lymph % (Auto) 15.6 % (13.4-35.0) 05/17/17 03:45 [place] % (Auto) 7.7 % (0.0-7.3) H 05/17/17 03:45 Eos % (Auto) 2.7 % (0.0-4.3) 05/17/17 03:45 Baso % (Auto) 0.3 % (0.0-1.8) 05/17/17 03:45 Lymph # 1.5 K/mm3 (1.2-5.4) 05/17/17 03:45 [place] # 0.7 K/mm3 (0.0-0.8) 05/17/17 03:45 Eos # 0.3 K/mm3 (0.0-0.4) 05/17/17 03:45 Baso # 0.0 K/mm3 (0.0-0.1) 05/17/17 03:45 Add Manual Diff Complete 03/30/17 03:50 Total Counted 100 03/30/17 03:50 Seg Neutrophils % 73.7 % (40.0-70.0) H 05/17/17 03:45 Seg Neuts % (Manual) 65.0 % (40.0-70.0) 03/30/17 03:50 Band Neutrophils % 17.0 % 03/30/17 03:50 Lymphocytes % (Manual) 7.0 % (13.4-35.0) L 03/30/17 03:50 Reactive Lymphs % (Man) 0 % 03/30/17 03:50 Monocytes % (Manual) 7.0 % (0.0-7.3) 03/30/17 03:50 Eosinophils % (Manual) 0 % (0.0-4.3) 03/30/17 03:50 Basophils % (Manual) 0 % (0.0-1.8) 03/30/17 03:50 Metamyelocytes % 4.0 % 03/30/17 03:50 Myelocytes % 0 % 03/30/17 03:50 Promyelocytes % 0 % 03/30/17 03:50 Blast Cells % 0 % 03/30/17 03:50 Nucleated RBC % Not Reportable 03/30/17 03:50 Seg Neutrophils # 6.9 K/mm3 (1.8-7.7) 05/17/17 03:45 Seg Neutrophils # Man 12.7 K/mm3 (1.8-7.7) H 03/30/17 03:50 Band Neutrophils # 3.3 K/mm3 03/30/17 03:50 Lymphocytes # (Manual) 1.4 K/mm3 (1.2-5.4) 03/30/17 03:50 Abs React Lymphs (Man) 0.0 K/mm3 03/30/17 03:50 Monocytes # (Manual) 1.4 K/mm3 (0.0-0.8) H 03/30/17 03:50 Eosinophils # (Manual) 0.0 K/mm3 (0.0-0.4) 03/30/17 03:50 Basophils # (Manual) 0.0 K/mm3 (0.0-0.1) 03/30/17 03:50 Metamyelocytes # 0.8 K/mm3 03/30/17 03:50 Myelocytes # 0.0 K/mm3 03/30/17 03:50 Promyelocytes # 0.0 K/mm3 03/30/17 03:50 Blast Cells # 0.0 K/mm3 03/30/17 03:50 WBC Morphology Not Reportable 03/30/17 03:50 Hypersegmented Neuts Not Reportable 03/30/17 03:50 Hyposegmented Neuts Not Reportable 03/30/17 03:50 Hypogranular Neuts Not Reportable 03/30/17 03:50 Smudge Cells Not Reportable 03/30/17 03:50 Toxic Granulation Not Reportable 03/30/17 03:50 Toxic Vacuolation Not Reportable 03/30/17 03:50 Dohle Bodies Not Reportable 03/30/17 03:50 Pelger-Huet Anomaly Not Reportable 03/30/17 03:50 Sherry Rods Not Reportable 03/30/17 03:50 Platelet Estimate Appears normal 03/30/17 03:50 Clumped Platelets Not Reportable 03/30/17 03:50 Plt Clumps, EDTA Not Reportable 03/30/17 03:50 Large Platelets Not Reportable 03/30/17 03:50 Giant Platelets Not Reportable 03/30/17 03:50 Platelet Satelliting Not Reportable 03/30/17 03:50 Plt Morphology Comment Not Reportable 03/30/17 03:50 RBC Morphology Not Reportable 03/30/17 03:50 Dimorphic RBCs Not Reportable 03/30/17 03:50 Polychromasia Not Reportable 03/30/17 03:50 Hypochromasia Not Reportable 03/30/17 03:50 Poikilocytosis Not Reportable 03/30/17 03:50 Anisocytosis Few 03/30/17 03:50 Microcytosis Not Reportable 03/30/17 03:50 Macrocytosis Not Reportable 03/30/17 03:50 Spherocytes Not Reportable 03/30/17 03:50 Pappenheimer Bodies Not Reportable 03/30/17 03:50 Sickle Cells Not Reportable 03/30/17 03:50 Target Cells Not Reportable 03/30/17 03:50 Tear Drop Cells Not Reportable 03/30/17 03:50 Ovalocytes Not Reportable 03/30/17 03:50 Helmet Cells Not Reportable 03/30/17 03:50 [place] Bodies Not Reportable 03/30/17 03:50 [place] Rings Not Reportable 03/30/17 03:50 [place] Cells Not Reportable 03/30/17 03:50 Bite Cells Not Reportable 03/30/17 03:50 Crenated Cell Not Reportable 03/30/17 03:50 Elliptocytes Not Reportable 03/30/17 03:50 Acanthocytes (Spur) Not Reportable 03/30/17 03:50 Rouleaux Not Reportable 03/30/17 03:50 Hemoglobin C Crystals Not Reportable 03/30/17 03:50 Schistocytes Not Reportable 03/30/17 03:50 Malaria parasites Not Reportable 03/30/17 03:50 [place] Bodies Not Reportable 03/30/17 03:50 Hem Pathologist Commnt No 03/30/17 03:50 PT 14.9 Sec. (12.2-14.9) 04/10/17 04:16 INR 1.11 (0.87-1.13) 04/10/17 04:16 APTT 27.8 Sec. (24.2-36.6) 04/10/17 04:16 Activated Clotting Time 92 (74-137) 03/29/17 17:47 POC ABG pH 7.524 (7.35-7.45) H 05/09/17 04:19 POC ABG pCO2 34.7 (35-45) L 05/09/17 04:19 POC ABG pO2 107 (80-105) H 05/09/17 04:19 POC ABG HCO3 28.6 05/09/17 04:19 POC ABG Total CO2 30 05/09/17 04:19 POC ABG O2 Sat 99 05/09/17 04:19 POC ABG Base Excess 6 05/09/17 04:19 FiO2 25 % 05/09/17 04:19 Sodium 138 mmol/L (137-145) 05/29/17 04:37 Potassium 4.2 mmol/L (3.6-5.0) 05/29/17 04:37 Chloride 97.6 mmol/L (98-107) L 05/29/17 04:37 Carbon Dioxide 23 mmol/L (22-30) 05/29/17 04:37 Anion Gap 22 mmol/L 05/29/17 04:37 BUN 14 mg/dL (9-20) 05/29/17 04:37 Creatinine 0.2 mg/dL (0.8-1.5) L 05/29/17 04:37 Estimated GFR > 60 ml/min 05/29/17 04:37 BUN/Creatinine Ratio 70 % 05/29/17 04:37 Glucose 121 mg/dL (75-100) H 05/29/17 04:37 POC Glucose 121 (70-105) H 06/09/17 14:50 Calcium 9.5 mg/dL (8.4-10.2) 05/29/17 04:37 Phosphorus 3.50 mg/dL (2.5-4.5) 04/13/17 04:45 Magnesium 1.80 mg/dL (1.7-2.3) 05/01/17 05:30 Total Bilirubin 0.60 mg/dL (0.1-1.2) 05/01/17 05:30 Direct Bilirubin < 0.2 mg/dL (0-0.2) 04/27/17 05:40 Indirect Bilirubin 0.3 mg/dL 04/25/17 04:51 AST 71 units/L (5-40) H 05/01/17 05:30 ALT 125 units/L (7-56) H 05/01/17 05:30 Alkaline Phosphatase 158 units/L (35-129) H 05/01/17 05:30 Total Creatine Kinase 1404 units/L (55-170) H 04/12/17 21:36 CK-MB (CK-2) 8.0 ng/mL (0.0-4.0) H 04/12/17 21:36 CK-MB (CK-2) Rel Index 0.5 (0-4) 04/12/17 21:36 Troponin T 0.767 ng/mL (0.00-0.029) H* 04/12/17 21:36 C-Reactive Protein 21.80 mg/dL (0.00-1.30) H 03/30/17 16:04 Total Protein 6.7 g/dL (6.3-8.2) 05/01/17 05:30 Albumin 2.6 g/dL (3.9-5) L 05/01/17 05:30 Albumin/Globulin Ratio 0.6 % 05/01/17 05:30 Triglycerides 151 mg/dL (2-149) H 04/01/17 04:29 Cholesterol 164 mg/dL (50-199) 03/29/17 19:52 LDL Cholesterol Direct 81 mg/dL (50-130) 03/29/17 19:52 HDL Cholesterol 44 mg/dL (40-59) 03/29/17 19:52 Cholesterol/HDL Ratio 3.72 % 03/29/17 19:52 Urine Color [place] (Yellow) 04/21/17 22:00 Urine Turbidity Clear (Clear) 04/21/17 22:00 Urine pH 5.0 (5.0-7.0) 04/21/17 22:00 Ur Specific [place] 1.029 (1.003-1.030) 04/21/17 22:00 Urine Protein 30 mg/dl mg/dL (Negative) 04/21/17 22:00 Urine Glucose (UA) Neg mg/dL (Negative) 04/21/17 22:00 Urine Ketones Neg mg/dL (Negative) 04/21/17 22:00 Urine Blood Mod (Negative) 04/21/17 22:00 Urine Nitrite Neg (Negative) 04/21/17 22:00 Urine Bilirubin Neg (Negative) 04/21/17 22:00 Urine Urobilinogen 4.0 mg/dL (<2.0) 04/21/17 22:00 Ur Leukocyte Esterase Neg (Negative) 04/21/17 22:00 Urine WBC (Auto) 10.0 /HPF (0.0-6.0) H 04/21/17 22:00 Urine RBC (Auto) 44.0 /HPF (0.0-6.0) 04/21/17 22:00 U Epithel Cells (Auto) < 1.0 /HPF (0-13.0) 04/21/17 22:00 Amorphous Crystals 1+ 03/30/17 09:45 Urine Mucus 3+ /HPF 04/21/17 22:00 Urine Opiates Screen Presumptive negative 03/30/17 09:45 Urine Methadone Screen Presumptive negative 03/30/17 09:45 Ur Barbiturates Screen Presumptive negative 03/30/17 09:45 Ur Phencyclidine Scrn Presumptive negative 03/30/17 09:45 Ur Amphetamines Screen Presumptive positive 03/30/17 09:45 U Benzodiazepines Scrn Presumptive positive 03/30/17 09:45 Urine Cocaine Screen Presumptive negative 03/30/17 09:45 U Marijuana (THC) Screen Presumptive negative 03/30/17 09:45 Drugs of Abuse Note Disclamer 03/30/17 09:45 Miscellaneous Test Flexitest 1 H 04/25/17 07:07 Blood Type O POSITIVE 03/29/17 11:35 Antibody Screen Negative 03/29/17 11:35
[2017-06-10] MEDS: ELIQUIS PO SCH ×2 (09:52→21:42)
[2017-06-10] MEDS: LOPRESSOR PO SCH ×2 (09:52→21:42)
[2017-06-10] MEDS: CORDARONE PO SCH ×2 (09:52→21:43)
[2017-06-10] MEDS: ASPIRIN PO SCH (09:53)
[2017-06-10] MEDS: PLAVIX PO SCH (09:53)
[2017-06-10] MEDS: PROTONIX FEEDTUBE SCH (09:55)
[2017-06-10] MEDS: ZESTRIL PO SCH (09:55)
--- NOTE | 2017-06-10 11:28 | Progress Note ---
Assessment and Plan Assessment and Plan Out of hospital cardiac arrest Hypoxic encephalopathy. Neurologically the same. See neuro comments Respiratory failure. tolerating spontaneous, on T piece DVT RUE. On Eliquis STEMI-on Eliquis, Plavix, aspirin s/p LHC with stent placement Prior MRSA,RLL . No fever, off antibiotics Recommendations Continue current oxygen support. Suction tracheotomy as needed Watch for fever Pt is stable, consider transfer to intermediate care Monitor blood sugar, avoid hypoglycemia CCT 31 min Subjective Date of service: 06/10/17 Principal diagnosis: coma,ARV,s/p arrest,ARF MV Interval history: Patient remained unresponsive. Has trach, on T piece for last 24 hours and tolerating it well. Objective Vital Signs - 12hr 06/10/17 06/10/17 06/10/17 00:00 00:01 01:00 Temperature 98.9 F Pulse Rate 64 63 Pulse Rate [ From Monitor] Respiratory 27 H 25 H Rate Blood Pressure 115/74 104/75 O2 Sat by Pulse Oximetry O2 Sat by Pulse Oximetry [ Assessment] 06/10/17 06/10/17 06/10/17 02:00 03:00 03:27 Temperature 98.2 F Pulse Rate 60 65 Pulse Rate [ From Monitor] Respiratory 18 24 Rate Blood Pressure 95/53 95/53 O2 Sat by Pulse Oximetry O2 Sat by Pulse 98 Oximetry [ Assessment] 06/10/17 06/10/17 06/10/17 04:00 05:00 06:00 Temperature Pulse Rate 63 70 76 Pulse Rate [ From Monitor] Respiratory 19 33 H 15 Rate Blood Pressure 94/57 94/57 100/64 O2 Sat by Pulse Oximetry O2 Sat by Pulse Oximetry [ Assessment] 06/10/17 06/10/17 06/10/17 07:00 08:00 08:15 Temperature 97.7 F Pulse Rate 58 L 50 L Pulse Rate [ 70 From Monitor] Respiratory 31 H 16 20 Rate Blood Pressure 103/64 99/62 O2 Sat by Pulse 98 Oximetry O2 Sat by Pulse Oximetry [ Assessment] 06/10/17 06/10/17 06/10/17 09:00 09:52 09:55 Temperature Pulse Rate 62 62 62 Pulse Rate [ From Monitor] Respiratory 25 H Rate Blood Pressure 99/62 103/60 103/60 O2 Sat by Pulse Oximetry O2 Sat by Pulse Oximetry [ Assessment] 06/10/17 10:00 Temperature Pulse Rate 62 Pulse Rate [ From Monitor] Respiratory 16 Rate Blood Pressure 100/58 O2 Sat by Pulse 98 Oximetry O2 Sat by Pulse Oximetry [ Assessment] Constitutional: no acute distress, other (stuporous, no changes) Eyes: non-icteric ENT: oropharynx moist Neck: supple, other (trach) Effort: normal Ascultation: Bilateral: clear, diminished breath sounds, other (coarse BS bilaterally) Percussion: Bilateral: not dull Cardiovascular: regular rate and rhythm Gastrointestinal: normoactive bowel sounds, soft, non-tender, non-distended Integumentary: normal Extremities: no cyanosis, no edema, pink and warm Neurologic: other (no change) Psychiatric: other (eyes open spontaneously but does not follow any voice commands, ) CBC and BMP: 05/29/17 04:37 05/29/17 04:37 ABG, PT/INR, D-dimer: ABG POC ABG pH 7.496 (7.35-7.45) H 06/09/17 18:29 POC ABG pCO2 33.7 (35-45) L 06/09/17 18:29 POC ABG pO2 103 (80-105) 06/09/17 18:29 POC ABG HCO3 26.0 06/09/17 18:29 POC ABG Total CO2 27 06/09/17 18:29 POC ABG O2 Sat 98 06/09/17 18:29 PT/INR, D-dimer PT 14.9 Sec. (12.2-14.9) 04/10/17 04:16 INR 1.11 (0.87-1.13) 04/10/17 04:16 Abnormal lab findings: Abnormal Labs 03/29/17 03/29/17 03/29/17 11:35 11:35 11:40 WBC RBC Hgb Hct MCV 98 H MCH 33 H RDW Plt Count Lymph % (Auto) Starr % (Auto) Eos % (Auto) Baso % (Auto) Lymph # Baso # Seg Neutrophils % Lymphocytes % (Manual) Monocytes % (Manual) 9.0 H Nucleated RBC % 1.0 H Seg Neutrophils # Seg Neutrophils # Man Monocytes # (Manual) 0.9 H PT 15.8 H INR 1.20 H Activated Clotting Time POC ABG pH POC ABG pCO2 POC ABG pO2 Sodium Potassium 2.7 L* Chloride 95.3 L Carbon Dioxide 17 L BUN Creatinine Glucose 435 H POC Glucose Calcium Magnesium Direct Bilirubin AST ALT Alkaline Phosphatase Total Creatine Kinase CK-MB (CK-2) CK-MB (CK-2) Rel Index Troponin T C-Reactive Protein Total Protein 6.1 L Albumin 3.5 L Triglycerides Ur Specific [place] Urine WBC (Auto) Miscellaneous Test 03/29/17 03/29/17 03/29/17 12:34 13:10 13:25 WBC RBC Hgb Hct MCV MCH RDW Plt Count Lymph % (Auto) [place] % (Auto) Eos % (Auto) Baso % (Auto) Lymph # Baso # Seg Neutrophils % Lymphocytes % (Manual) Monocytes % (Manual) Nucleated RBC % Seg Neutrophils # Seg Neutrophils # Man Monocytes # (Manual) PT INR Activated Clotting Time 142 H 169 H 175 H POC ABG pH POC ABG pCO2 POC ABG pO2 Sodium Potassium Chloride Carbon Dioxide BUN Creatinine Glucose POC Glucose Calcium Magnesium Direct Bilirubin AST ALT Alkaline Phosphatase Total Creatine Kinase CK-MB (CK-2) CK-MB (CK-2) Rel Index Troponin T C-Reactive Protein Total Protein Albumin Triglycerides Ur Specific [place] Urine WBC (Auto) Miscellaneous Test 03/29/17 03/29/17 03/29/17 14:50 15:18 19:52 WBC RBC Hgb Hct MCV MCH RDW Plt Count Lymph % (Auto) [place] % (Auto) Eos % (Auto) Baso % (Auto) Lymph # Baso # Seg Neutrophils % Lymphocytes % (Manual) Monocytes % (Manual) Nucleated RBC % Seg Neutrophils # Seg Neutrophils # Man Monocytes # (Manual) PT INR Activated Clotting Time 175 H POC ABG pH 7.293 L POC ABG pCO2 POC ABG pO2 602 H Sodium Potassium Chloride Carbon Dioxide BUN Creatinine Glucose POC Glucose Calcium Magnesium Direct Bilirubin AST ALT Alkaline Phosphatase Total Creatine Kinase 7263 H CK-MB (CK-2) > 300.0 H CK-MB (CK-2) Rel Index 4.1 H Troponin T 8.080 H* D C-Reactive Protein Total Protein Albumin Triglycerides 195 H Ur Specific [place] Urine WBC (Auto) Miscellaneous Test 03/30/17 03/30/17 03/30/17 03:50 03:50 06:19 WBC 19.5 H RBC Hgb Hct MCV MCH RDW Plt Count Lymph % (Auto) [place] % (Auto) Eos % (Auto) Baso % (Auto) Lymph # Baso # Seg Neutrophils % Lymphocytes % (Manual) 7.0 L Monocytes % (Manual) Nucleated RBC % Seg Neutrophils # Seg Neutrophils # Man 12.7 H Monocytes # (Manual) 1.4 H PT INR Activated Clotting Time POC ABG pH POC ABG pCO2 28.2 L POC ABG pO2 108 H Sodium Potassium Chloride 108.9 H Carbon Dioxide 15 L BUN 25 H Creatinine Glucose 158 H POC Glucose Calcium 8.1 L Magnesium Direct Bilirubin AST ALT Alkaline Phosphatase Total Creatine Kinase 7963 H CK-MB (CK-2) > 300.0 H CK-MB (CK-2) Rel Index Troponin T 6.850 H* C-Reactive Protein Total Protein Albumin Triglycerides Ur Specific [place] Urine WBC (Auto) Miscellaneous Test 03/30/17 03/30/17 03/31/17 09:45 16:04 02:19 WBC RBC Hgb Hct MCV MCH RDW Plt Count Lymph % (Auto) [place] % (Auto) Eos % (Auto) Baso % (Auto) Lymph # Baso # Seg Neutrophils % Lymphocytes % (Manual) Monocytes % (Manual) Nucleated RBC % Seg Neutrophils # Seg Neutrophils # Man Monocytes # (Manual) PT INR Activated Clotting Time POC ABG pH POC ABG pCO2 POC ABG pO2 Sodium Potassium Chloride Carbon Dioxide BUN Creatinine Glucose POC Glucose 137 H Calcium Magnesium Direct Bilirubin AST ALT Alkaline Phosphatase Total Creatine Kinase CK-MB (CK-2) CK-MB (CK-2) Rel Index Troponin T C-Reactive Protein 21.80 H Total Protein Albumin Triglycerides Ur Specific [place] 1.031 H Urine WBC (Auto) Miscellaneous Test 03/31/17 03/31/17 03/31/17 03:57 06:54 09:22 WBC RBC Hgb Hct MCV MCH RDW Plt Count Lymph % (Auto) [place] % (Auto) Eos % (Auto) Baso % (Auto) Lymph # Baso # Seg Neutrophils % Lymphocytes % (Manual) Monocytes % (Manual) Nucleated RBC % Seg Neutrophils # Seg Neutrophils # Man Monocytes # (Manual) PT INR Activated Clotting Time POC ABG pH 7.475 H POC ABG pCO2 25.4 L POC ABG pO2 62 L Sodium Potassium Chloride Carbon Dioxide 19 L BUN 22 H Creatinine 0.6 L Glucose 148 H POC Glucose 143 H Calcium 8.3 L Magnesium Direct Bilirubin AST ALT Alkaline Phosphatase Total Creatine Kinase CK-MB (CK-2) CK-MB (CK-2) Rel Index Troponin T C-Reactive Protein Total Protein Albumin Triglycerides Ur Specific [place] Urine WBC (Auto) Miscellaneous Test 03/31/17 03/31/17 03/31/17 11:40 17:47 23:38 WBC RBC Hgb Hct MCV MCH RDW Plt Count Lymph % (Auto) [place] % (Auto) Eos % (Auto) Baso % (Auto) Lymph # Baso # Seg Neutrophils % Lymphocytes % (Manual) Monocytes % (Manual) Nucleated RBC % Seg Neutrophils # Seg Neutrophils # Man Monocytes # (Manual) PT INR Activated Clotting Time POC ABG pH POC ABG pCO2 POC ABG pO2 Sodium Potassium Chloride Carbon Dioxide BUN Creatinine Glucose POC Glucose 127 H 137 H 148 H Calcium Magnesium Direct Bilirubin AST ALT Alkaline Phosphatase Total Creatine Kinase CK-MB (CK-2) CK-MB (CK-2) Rel Index Troponin T C-Reactive Protein Total Protein Albumin Triglycerides Ur Specific [place] Urine WBC (Auto) Miscellaneous Test 04/01/17 04/01/17 04/01/17 04:29 05:01 11:54 WBC RBC Hgb Hct MCV MCH RDW Plt Count Lymph % (Auto) [place] % (Auto) Eos % (Auto) Baso % (Auto) Lymph # Baso # Seg Neutrophils % Lymphocytes % (Manual) Monocytes % (Manual) Nucleated RBC % Seg Neutrophils # Seg Neutrophils # Man Monocytes # (Manual) PT INR Activated Clotting Time POC ABG pH 7.513 H POC ABG pCO2 22.1 L POC ABG pO2 64 L Sodium Potassium Chloride Carbon Dioxide BUN Creatinine Glucose POC Glucose 121 H Calcium Magnesium Direct Bilirubin AST ALT Alkaline Phosphatase Total Creatine Kinase CK-MB (CK-2) CK-MB (CK-2) Rel Index Troponin T C-Reactive Protein Total Protein Albumin Triglycerides 151 H Ur Specific [place] Urine WBC (Auto) Miscellaneous Test 04/01/17 04/02/17 04/02/17 18:17 00:11 04:52 WBC RBC Hgb Hct MCV MCH RDW Plt Count Lymph % (Auto) [place] % (Auto) Eos % (Auto) Baso % (Auto) Lymph # Baso # Seg Neutrophils % Lymphocytes % (Manual) Monocytes % (Manual) Nucleated RBC % Seg Neutrophils # Seg Neutrophils # Man Monocytes # (Manual) PT INR Activated Clotting Time POC ABG pH 7.524 H POC ABG pCO2 25.5 L POC ABG pO2 66 L Sodium Potassium Chloride Carbon Dioxide BUN Creatinine Glucose POC Glucose 117 H 122 H Calcium Magnesium Direct Bilirubin AST ALT Alkaline Phosphatase Total Creatine Kinase CK-MB (CK-2) CK-MB (CK-2) Rel Index Troponin T C-Reactive Protein Total Protein Albumin Triglycerides Ur Specific [place] Urine WBC (Auto) Miscellaneous Test 04/02/17 04/02/17 04/02/17 05:18 10:41 12:19 WBC RBC Hgb Hct MCV MCH RDW Plt Count Lymph % (Auto) [place] % (Auto) Eos % (Auto) Baso % (Auto) Lymph # Baso # Seg Neutrophils % Lymphocytes % (Manual) Monocytes % (Manual) Nucleated RBC % Seg Neutrophils # Seg Neutrophils # Man Monocytes # (Manual) PT INR Activated Clotting Time POC ABG pH 7.534 H POC ABG pCO2 27.4 L POC ABG pO2 Sodium Potassium Chloride Carbon Dioxide BUN Creatinine Glucose POC Glucose 132 H 129 H Calcium Magnesium Direct Bilirubin AST ALT Alkaline Phosphatase Total Creatine Kinase CK-MB (CK-2) CK-MB (CK-2) Rel Index Troponin T C-Reactive Protein Total Protein Albumin Triglycerides Ur Specific [place] Urine WBC (Auto) Miscellaneous Test 04/02/17 04/03/17 04/03/17 18:05 00:08 05:09 WBC RBC Hgb Hct MCV MCH RDW Plt Count Lymph % (Auto) [place] % (Auto) Eos % (Auto) Baso % (Auto) Lymph # Baso # Seg Neutrophils % Lymphocytes % (Manual) Monocytes % (Manual) Nucleated RBC % Seg Neutrophils # Seg Neutrophils # Man Monocytes # (Manual) PT INR Activated Clotting Time POC ABG pH 7.455 H POC ABG pCO2 33.2 L POC ABG pO2 120 H Sodium Potassium Chloride Carbon Dioxide BUN Creatinine Glucose POC Glucose 136 H 128 H Calcium Magnesium Direct Bilirubin AST ALT Alkaline Phosphatase Total Creatine Kinase CK-MB (CK-2) CK-MB (CK-2) Rel Index Troponin T C-Reactive Protein Total Protein Albumin Triglycerides Ur Specific [place] Urine WBC (Auto) Miscellaneous Test 04/03/17 04/03/17 04/03/17 06:32 11:54 12:16 WBC 11.9 H RBC Hgb Hct MCV MCH RDW Plt Count 125 L Lymph % (Auto) 4.8 L [place] % (Auto) Eos % (Auto) Baso % (Auto) Lymph # 0.6 L Baso # Seg Neutrophils % 86.7 H Lymphocytes % (Manual) Monocytes % (Manual) Nucleated RBC % Seg Neutrophils # 10.3 H Seg Neutrophils # Man Monocytes # (Manual) PT INR Activated Clotting Time POC ABG pH POC ABG pCO2 POC ABG pO2 Sodium Potassium Chloride Carbon Dioxide BUN Creatinine Glucose POC Glucose 138 H 143 H Calcium Magnesium Direct Bilirubin AST ALT Alkaline Phosphatase Total Creatine Kinase CK-MB (CK-2) CK-MB (CK-2) Rel Index Troponin T C-Reactive Protein Total Protein Albumin Triglycerides Ur Specific [place] Urine WBC (Auto) Miscellaneous Test 04/03/17 04/03/17 04/04/17 17:33 23:59 04:34 WBC RBC Hgb Hct MCV MCH RDW Plt Count Lymph % (Auto) [place] % (Auto) Eos % (Auto) Baso % (Auto) Lymph # Baso # Seg Neutrophils % Lymphocytes % (Manual) Monocytes % (Manual) Nucleated RBC % Seg Neutrophils # Seg Neutrophils # Man Monocytes # (Manual) PT INR Activated Clotting Time POC ABG pH 7.457 H POC ABG pCO2 29.8 L POC ABG pO2 76 L Sodium Potassium Chloride Carbon Dioxide BUN Creatinine Glucose POC Glucose 130 H 155 H Calcium Magnesium Direct Bilirubin AST ALT Alkaline Phosphatase Total Creatine Kinase CK-MB (CK-2) CK-MB (CK-2) Rel Index Troponin T C-Reactive Protein Total Protein Albumin Triglycerides Ur Specific [place] Urine WBC (Auto) Miscellaneous Test 04/04/17 04/04/17 04/04/17 05:27 12:22 18:18 WBC RBC Hgb Hct MCV MCH RDW Plt Count Lymph % (Auto) [place] % (Auto) Eos % (Auto) Baso % (Auto) Lymph # Baso # Seg Neutrophils % Lymphocytes % (Manual) Monocytes % (Manual) Nucleated RBC % Seg Neutrophils # Seg Neutrophils # Man Monocytes # (Manual) PT INR Activated Clotting Time POC ABG pH POC ABG pCO2 POC ABG pO2 Sodium Potassium Chloride Carbon Dioxide BUN Creatinine Glucose POC Glucose 164 H 146 H 130 H Calcium Magnesium Direct Bilirubin AST ALT Alkaline Phosphatase Total Creatine Kinase CK-MB (CK-2) CK-MB (CK-2) Rel Index Troponin T C-Reactive Protein Total Protein Albumin Triglycerides Ur Specific [place] Urine WBC (Auto) Miscellaneous Test 04/05/17 04/05/17 04/05/17 04:43 05:28 11:36 WBC RBC Hgb Hct MCV MCH RDW Plt Count Lymph % (Auto) [place] % (Auto) Eos % (Auto) Baso % (Auto) Lymph # Baso # Seg Neutrophils % Lymphocytes % (Manual) Monocytes % (Manual) Nucleated RBC % Seg Neutrophils # Seg Neutrophils # Man Monocytes # (Manual) PT INR Activated Clotting Time POC ABG pH 7.479 H POC ABG pCO2 33.5 L POC ABG pO2 76 L Sodium Potassium Chloride Carbon Dioxide BUN Creatinine Glucose POC Glucose 145 H 136 H Calcium Magnesium Direct Bilirubin AST ALT Alkaline Phosphatase Total Creatine Kinase CK-MB (CK-2) CK-MB (CK-2) Rel Index Troponin T C-Reactive Protein Total Protein Albumin Triglycerides Ur Specific [place] Urine WBC (Auto) Miscellaneous Test 04/05/17 04/06/17 04/06/17 17:58 00:16 05:26 WBC RBC Hgb Hct MCV MCH RDW Plt Count Lymph % (Auto) [place] % (Auto) Eos % (Auto) Baso % (Auto) Lymph # Baso # Seg Neutrophils % Lymphocytes % (Manual) Monocytes % (Manual) Nucleated RBC % Seg Neutrophils # Seg Neutrophils # Man Monocytes # (Manual) PT INR Activated Clotting Time POC ABG pH POC ABG pCO2 POC ABG pO2 Sodium Potassium Chloride Carbon Dioxide BUN Creatinine Glucose POC Glucose 130 H 159 H 146 H Calcium Magnesium Direct Bilirubin AST ALT Alkaline Phosphatase Total Creatine Kinase CK-MB (CK-2) CK-MB (CK-2) Rel Index Troponin T C-Reactive Protein Total Protein Albumin Triglycerides Ur Specific [place] Urine WBC (Auto) Miscellaneous Test 04/06/17 04/06/17 04/07/17 13:11 16:54 11:45 WBC RBC Hgb Hct MCV MCH RDW Plt Count Lymph % (Auto) [place] % (Auto) Eos % (Auto) Baso % (Auto) Lymph # Baso # Seg Neutrophils % Lymphocytes % (Manual) Monocytes % (Manual) Nucleated RBC % Seg Neutrophils # Seg Neutrophils # Man Monocytes # (Manual) PT INR Activated Clotting Time POC ABG pH 7.517 H POC ABG pCO2 32.1 L POC ABG pO2 Sodium Potassium Chloride Carbon Dioxide BUN Creatinine Glucose POC Glucose 132 H 123 H Calcium Magnesium Direct Bilirubin AST ALT Alkaline Phosphatase Total Creatine Kinase CK-MB (CK-2) CK-MB (CK-2) Rel Index Troponin T C-Reactive Protein Total Protein Albumin Triglycerides Ur Specific [place] Urine WBC (Auto) Miscellaneous Test 04/07/17 04/07/17 04/07/17 12:51 17:40 23:55 WBC RBC Hgb Hct MCV MCH RDW Plt Count Lymph % (Auto) [place] % (Auto) Eos % (Auto) Baso % (Auto) Lymph # Baso # Seg Neutrophils % Lymphocytes % (Manual) Monocytes % (Manual) Nucleated RBC % Seg Neutrophils # Seg Neutrophils # Man Monocytes # (Manual) PT INR Activated Clotting Time POC ABG pH POC ABG pCO2 POC ABG pO2 Sodium Potassium Chloride Carbon Dioxide BUN Creatinine Glucose POC Glucose 138 H 154 H 143 H Calcium Magnesium Direct Bilirubin AST ALT Alkaline Phosphatase Total Creatine Kinase CK-MB (CK-2) CK-MB (CK-2) Rel Index Troponin T C-Reactive Protein Total Protein Albumin Triglycerides Ur Specific [place] Urine WBC (Auto) Miscellaneous Test 04/08/17 04/08/17 04/08/17 05:27 11:14 17:44 WBC RBC Hgb Hct MCV MCH RDW Plt Count Lymph % (Auto) [place] % (Auto) Eos % (Auto) Baso % (Auto) Lymph # Baso # Seg Neutrophils % Lymphocytes % (Manual) Monocytes % (Manual) Nucleated RBC % Seg Neutrophils # Seg Neutrophils # Man Monocytes # (Manual) PT INR Activated Clotting Time POC ABG pH POC ABG pCO2 POC ABG pO2 Sodium Potassium Chloride Carbon Dioxide BUN Creatinine Glucose POC Glucose 142 H 153 H 129 H Calcium Magnesium Direct Bilirubin AST ALT Alkaline Phosphatase Total Creatine Kinase CK-MB (CK-2) CK-MB (CK-2) Rel Index Troponin T C-Reactive Protein Total Protein Albumin Triglycerides Ur Specific [place] Urine WBC (Auto) Miscellaneous Test 04/09/17 04/09/17 04/09/17 08:20 11:21 17:37 WBC RBC Hgb Hct MCV MCH RDW Plt Count Lymph % (Auto) [place] % (Auto) Eos % (Auto) Baso % (Auto) Lymph # Baso # Seg Neutrophils % Lymphocytes % (Manual) Monocytes % (Manual) Nucleated RBC % Seg Neutrophils # Seg Neutrophils # Man Monocytes # (Manual) PT INR Activated Clotting Time POC ABG pH POC ABG pCO2 POC ABG pO2 Sodium 147 H Potassium Chloride 108.8 H Carbon Dioxide BUN 39 H Creatinine 0.5 L Glucose 138 H POC Glucose 152 H 109 H Calcium Magnesium Direct Bilirubin AST ALT Alkaline Phosphatase Total Creatine Kinase CK-MB (CK-2) CK-MB (CK-2) Rel Index Troponin T C-Reactive Protein Total Protein Albumin Triglycerides Ur Specific [place] Urine WBC (Auto) Miscellaneous Test 04/10/17 04/10/17 04/10/17 00:13 04:16 04:16 WBC RBC Hgb 11.5 L Hct MCV 96 H MCH RDW Plt Count 103 L Lymph % (Auto) 11.1 L [place] % (Auto) Eos % (Auto) Baso % (Auto) Lymph # Baso # Seg Neutrophils % 81.5 H Lymphocytes % (Manual) Monocytes % (Manual) Nucleated RBC % Seg Neutrophils # 8.8 H Seg Neutrophils # Man Monocytes # (Manual) PT INR Activated Clotting Time POC ABG pH POC ABG pCO2 POC ABG pO2 Sodium 148 H Potassium Chloride 109.0 H Carbon Dioxide BUN 36 H Creatinine 0.5 L Glucose 131 H POC Glucose 127 H Calcium 8.1 L Magnesium 2.40 H Direct Bilirubin AST 206 H ALT 228 H Alkaline Phosphatase 178 H Total Creatine Kinase CK-MB (CK-2) CK-MB (CK-2) Rel Index Troponin T C-Reactive Protein Total Protein Albumin 2.8 L Triglycerides Ur Specific [place] Urine WBC (Auto) Miscellaneous Test 04/10/17 04/10/17 04/10/17 06:01 11:57 18:27 WBC RBC Hgb Hct MCV MCH RDW Plt Count Lymph % (Auto) [place] % (Auto) Eos % (Auto) Baso % (Auto) Lymph # Baso # Seg Neutrophils % Lymphocytes % (Manual) Monocytes % (Manual) Nucleated RBC % Seg Neutrophils # Seg Neutrophils # Man Monocytes # (Manual) PT INR Activated Clotting Time POC ABG pH POC ABG pCO2 POC ABG pO2 Sodium Potassium Chloride Carbon Dioxide BUN Creatinine Glucose POC Glucose 108 H 154 H 130 H Calcium Magnesium Direct Bilirubin AST ALT Alkaline Phosphatase Total Creatine Kinase CK-MB (CK-2) CK-MB (CK-2) Rel Index Troponin T C-Reactive Protein Total Protein Albumin Triglycerides Ur Specific [place] Urine WBC (Auto) Miscellaneous Test 04/11/17 04/11/17 04/12/17 12:25 17:10 00:22 WBC RBC Hgb Hct MCV MCH RDW Plt Count Lymph % (Auto) [place] % (Auto) Eos % (Auto) Baso % (Auto) Lymph # Baso # Seg Neutrophils % Lymphocytes % (Manual) Monocytes % (Manual) Nucleated RBC % Seg Neutrophils # Seg Neutrophils # Man Monocytes # (Manual) PT INR Activated Clotting Time POC ABG pH POC ABG pCO2 POC ABG pO2 Sodium Potassium Chloride Carbon Dioxide BUN Creatinine Glucose POC Glucose 107 H 129 H 128 H Calcium Magnesium Direct Bilirubin AST ALT Alkaline Phosphatase Total Creatine Kinase CK-MB (CK-2) CK-MB (CK-2) Rel Index Troponin T C-Reactive Protein Total Protein Albumin Triglycerides Ur Specific [place] Urine WBC (Auto) Miscellaneous Test 04/12/17 04/12/17 04/12/17 05:00 11:57 17:47 WBC RBC Hgb Hct MCV MCH RDW Plt Count Lymph % (Auto) [place] % (Auto) Eos % (Auto) Baso % (Auto) Lymph # Baso # Seg Neutrophils % Lymphocytes % (Manual) Monocytes % (Manual) Nucleated RBC % Seg Neutrophils # Seg Neutrophils # Man Monocytes # (Manual) PT INR Activated Clotting Time POC ABG pH POC ABG pCO2 POC ABG pO2 Sodium Potassium Chloride Carbon Dioxide BUN Creatinine Glucose POC Glucose 140 H 142 H Calcium Magnesium Direct Bilirubin AST 158 H ALT 184 H Alkaline Phosphatase 170 H Total Creatine Kinase CK-MB (CK-2) CK-MB (CK-2) Rel Index Troponin T C-Reactive Protein Total Protein Albumin 2.8 L Triglycerides Ur Specific [place] Urine WBC (Auto) Miscellaneous Test 04/12/17 04/12/17 04/13/17 21:36 21:36 01:37 WBC RBC Hgb Hct MCV MCH RDW Plt Count Lymph % (Auto) [place] % (Auto) Eos % (Auto) Baso % (Auto) Lymph # Baso # Seg Neutrophils % Lymphocytes % (Manual) Monocytes % (Manual) Nucleated RBC % Seg Neutrophils # Seg Neutrophils # Man Monocytes # (Manual) PT INR Activated Clotting Time POC ABG pH POC ABG pCO2 POC ABG pO2 Sodium Potassium Chloride Carbon Dioxide BUN Creatinine Glucose POC Glucose 126 H Calcium Magnesium Direct Bilirubin AST ALT Alkaline Phosphatase Total Creatine Kinase 1404 H CK-MB (CK-2) 8.0 H CK-MB (CK-2) Rel Index Troponin T 0.767 H* C-Reactive Protein Total Protein Albumin Triglycerides Ur Specific [place] Urine WBC (Auto) Miscellaneous Test 04/13/17 04/13/17 04/13/17 04:45 04:52 12:17 WBC RBC Hgb Hct MCV MCH RDW Plt Count Lymph % (Auto) [place] % (Auto) Eos % (Auto) Baso % (Auto) Lymph # Baso # Seg Neutrophils % Lymphocytes % (Manual) Monocytes % (Manual) Nucleated RBC % Seg Neutrophils # Seg Neutrophils # Man Monocytes # (Manual) PT INR Activated Clotting Time POC ABG pH POC ABG pCO2 POC ABG pO2 Sodium 148 H Potassium Chloride 112.8 H Carbon Dioxide BUN 33 H Creatinine 0.4 L Glucose 121 H POC Glucose 126 H 149 H Calcium Magnesium Direct Bilirubin AST 160 H ALT 189 H Alkaline Phosphatase 166 H Total Creatine Kinase CK-MB (CK-2) CK-MB (CK-2) Rel Index Troponin T C-Reactive Protein Total Protein Albumin 2.6 L Triglycerides Ur Specific [place] Urine WBC (Auto) Miscellaneous Test 04/13/17 04/14/17 04/14/17 17:45 00:20 00:45 WBC RBC Hgb Hct MCV MCH RDW Plt Count Lymph % (Auto) [place] % (Auto) Eos % (Auto) Baso % (Auto) Lymph # Baso # Seg Neutrophils % Lymphocytes % (Manual) Monocytes % (Manual) Nucleated RBC % Seg Neutrophils # Seg Neutrophils # Man Monocytes # (Manual) PT INR Activated Clotting Time POC ABG pH POC ABG pCO2 POC ABG pO2 Sodium Potassium Chloride Carbon Dioxide BUN Creatinine Glucose POC Glucose 130 H 144 H 144 H Calcium Magnesium Direct Bilirubin AST ALT Alkaline Phosphatase Total Creatine Kinase CK-MB (CK-2) CK-MB (CK-2) Rel Index Troponin T C-Reactive Protein Total Protein Albumin Triglycerides Ur Specific [place] Urine WBC (Auto) Miscellaneous Test 04/14/17 04/14/17 04/14/17 05:40 11:06 11:31 WBC RBC Hgb Hct MCV MCH RDW Plt Count Lymph % (Auto) [place] % (Auto) Eos % (Auto) Baso % (Auto) Lymph # Baso # Seg Neutrophils % Lymphocytes % (Manual) Monocytes % (Manual) Nucleated RBC % Seg Neutrophils # Seg Neutrophils # Man Monocytes # (Manual) PT INR Activated Clotting Time POC ABG pH POC ABG pCO2 POC ABG pO2 Sodium Potassium Chloride Carbon Dioxide BUN Creatinine Glucose POC Glucose 139 H 123 H Calcium Magnesium Direct Bilirubin AST ALT Alkaline Phosphatase Total Creatine Kinase CK-MB (CK-2) CK-MB (CK-2) Rel Index Troponin T C-Reactive Protein Total Protein Albumin Triglycerides Ur Specific [place] 1.033 H Urine WBC (Auto) > 182.0 H Miscellaneous Test 04/14/17 04/14/17 04/15/17 18:00 23:52 05:15 WBC 12.5 H RBC 3.38 L Hgb 10.6 L Hct 32.7 L MCV 97 H MCH RDW Plt Count 107 L Lymph % (Auto) 8.7 L [place] % (Auto) Eos % (Auto) Baso % (Auto) Lymph # 1.1 L Baso # Seg Neutrophils % 86.1 H Lymphocytes % (Manual) Monocytes % (Manual) Nucleated RBC % Seg Neutrophils # 10.7 H Seg Neutrophils # Man Monocytes # (Manual) PT INR Activated Clotting Time POC ABG pH POC ABG pCO2 POC ABG pO2 Sodium Potassium Chloride Carbon Dioxide BUN Creatinine Glucose POC Glucose 133 H 133 H Calcium Magnesium Direct Bilirubin AST ALT Alkaline Phosphatase Total Creatine Kinase CK-MB (CK-2) CK-MB (CK-2) Rel Index Troponin T C-Reactive Protein Total Protein Albumin Triglycerides Ur Specific [place] Urine WBC (Auto) Miscellaneous Test 04/15/17 04/15/17 04/15/17 05:15 05:25 11:50 WBC RBC Hgb Hct MCV MCH RDW Plt Count Lymph % (Auto) [place] % (Auto) Eos % (Auto) Baso % (Auto) Lymph # Baso # Seg Neutrophils % Lymphocytes % (Manual) Monocytes % (Manual) Nucleated RBC % Seg Neutrophils # Seg Neutrophils # Man Monocytes # (Manual) PT INR Activated Clotting Time POC ABG pH POC ABG pCO2 POC ABG pO2 Sodium 149 H Potassium 3.5 L Chloride 114.1 H Carbon Dioxide 21 L BUN 29 H Creatinine 0.4 L Glucose 128 H POC Glucose 133 H 107 H Calcium 8.3 L Magnesium Direct Bilirubin 0.4 H AST 149 H ALT 182 H Alkaline Phosphatase 143 H Total Creatine Kinase CK-MB (CK-2) CK-MB (CK-2) Rel Index Troponin T C-Reactive Protein Total Protein Albumin 2.5 L Triglycerides Ur Specific [place] Urine WBC (Auto) Miscellaneous Test 04/15/17 04/16/17 04/16/17 16:55 00:02 03:17 WBC RBC 3.39 L Hgb 10.5 L Hct 32.4 L MCV 96 H MCH RDW Plt Count 106 L Lymph % (Auto) 6.7 L [place] % (Auto) Eos % (Auto) Baso % (Auto) Lymph # 0.6 L Baso # Seg Neutrophils % 86.8 H Lymphocytes % (Manual) Monocytes % (Manual) Nucleated RBC % Seg Neutrophils # 8.2 H Seg Neutrophils # Man Monocytes # (Manual) PT INR Activated Clotting Time POC ABG pH POC ABG pCO2 POC ABG pO2 Sodium Potassium Chloride Carbon Dioxide BUN Creatinine Glucose POC Glucose 146 H 148 H Calcium Magnesium Direct Bilirubin AST ALT Alkaline Phosphatase Total Creatine Kinase CK-MB (CK-2) CK-MB (CK-2) Rel Index Troponin T C-Reactive Protein Total Protein Albumin Triglycerides Ur Specific [place] Urine WBC (Auto) Miscellaneous Test 04/16/17 04/16/17 04/16/17 03:17 05:19 11:13 WBC RBC Hgb Hct MCV MCH RDW Plt Count Lymph % (Auto) [place] % (Auto) Eos % (Auto) Baso % (Auto) Lymph # Baso # Seg Neutrophils % Lymphocytes % (Manual) Monocytes % (Manual) Nucleated RBC % Seg Neutrophils # Seg Neutrophils # Man Monocytes # (Manual) PT INR Activated Clotting Time POC ABG pH POC ABG pCO2 POC ABG pO2 Sodium 149 H Potassium Chloride 111.1 H Carbon Dioxide 20 L BUN 27 H Creatinine 0.3 L Glucose 156 H POC Glucose 171 H 169 H Calcium 8.3 L Magnesium Direct Bilirubin AST ALT Alkaline Phosphatase Total Creatine Kinase CK-MB (CK-2) CK-MB (CK-2) Rel Index Troponin T C-Reactive Protein Total Protein Albumin Triglycerides Ur Specific [place] Urine WBC (Auto) Miscellaneous Test 04/16/17 04/17/17 04/17/17 17:03 00:00 05:09 WBC RBC Hgb Hct MCV MCH RDW Plt Count Lymph % (Auto) [place] % (Auto) Eos % (Auto) Baso % (Auto) Lymph # Baso # Seg Neutrophils % Lymphocytes % (Manual) Monocytes % (Manual) Nucleated RBC % Seg Neutrophils # Seg Neutrophils # Man Monocytes # (Manual) PT INR Activated Clotting Time POC ABG pH POC ABG pCO2 POC ABG pO2 Sodium Potassium Chloride Carbon Dioxide BUN Creatinine Glucose POC Glucose 151 H 165 H 145 H Calcium Magnesium Direct Bilirubin AST ALT Alkaline Phosphatase Total Creatine Kinase CK-MB (CK-2) CK-MB (CK-2) Rel Index Troponin T C-Reactive Protein Total Protein Albumin Triglycerides Ur Specific [place] Urine WBC (Auto) Miscellaneous Test 04/17/17 04/17/17 04/18/17 11:38 17:47 00:01 WBC RBC Hgb Hct MCV MCH RDW Plt Count Lymph % (Auto) [place] % (Auto) Eos % (Auto) Baso % (Auto) Lymph # Baso # Seg Neutrophils % Lymphocytes % (Manual) Monocytes % (Manual) Nucleated RBC % Seg Neutrophils # Seg Neutrophils # Man Monocytes # (Manual) PT INR Activated Clotting Time POC ABG pH POC ABG pCO2 POC ABG pO2 Sodium Potassium Chloride Carbon Dioxide BUN Creatinine Glucose POC Glucose 170 H 161 H 131 H Calcium Magnesium Direct Bilirubin AST ALT Alkaline Phosphatase Total Creatine Kinase CK-MB (CK-2) CK-MB (CK-2) Rel Index Troponin T C-Reactive Protein Total Protein Albumin Triglycerides Ur Specific [place] Urine WBC (Auto) Miscellaneous Test 04/18/17 04/18/17 04/18/17 03:55 03:55 05:30 WBC RBC 3.05 L Hgb 9.8 L Hct 29.0 L MCV 95 H MCH RDW Plt Count 113 L Lymph % (Auto) [place] % (Auto) Eos % (Auto) 5.3 H Baso % (Auto) Lymph # Baso # Seg Neutrophils % 71.5 H Lymphocytes % (Manual) Monocytes % (Manual) Nucleated RBC % Seg Neutrophils # Seg Neutrophils # Man Monocytes # (Manual) PT INR Activated Clotting Time POC ABG pH 7.460 H POC ABG pCO2 30.8 L POC ABG pO2 129 H Sodium Potassium Chloride Carbon Dioxide 21 L BUN 25 H Creatinine 0.4 L Glucose 123 H POC Glucose Calcium 8.3 L Magnesium Direct Bilirubin AST ALT Alkaline Phosphatase Total Creatine Kinase CK-MB (CK-2) CK-MB (CK-2) Rel Index Troponin T C-Reactive Protein Total Protein Albumin Triglycerides Ur Specific [place] Urine WBC (Auto) Miscellaneous Test 04/18/17 04/18/17 04/19/17 17:10 23:40 04:36 WBC RBC 3.21 L Hgb 10.2 L Hct 30.4 L MCV 95 H MCH RDW Plt Count 131 L Lymph % (Auto) 12.1 L [place] % (Auto) Eos % (Auto) 4.7 H Baso % (Auto) 2.4 H Lymph # 0.9 L Baso # 0.2 H Seg Neutrophils % 75.0 H Lymphocytes % (Manual) Monocytes % (Manual) Nucleated RBC % Seg Neutrophils # Seg Neutrophils # Man Monocytes # (Manual) PT INR Activated Clotting Time POC ABG pH POC ABG pCO2 POC ABG pO2 Sodium Potassium Chloride Carbon Dioxide BUN Creatinine Glucose POC Glucose 135 H 157 H Calcium Magnesium Direct Bilirubin AST ALT Alkaline Phosphatase Total Creatine Kinase CK-MB (CK-2) CK-MB (CK-2) Rel Index Troponin T C-Reactive Protein Total Protein Albumin Triglycerides Ur Specific [place] Urine WBC (Auto) Miscellaneous Test 04/19/17 04/19/17 04/19/17 04:36 05:12 06:50 WBC RBC Hgb Hct MCV MCH RDW Plt Count Lymph % (Auto) [place] % (Auto) Eos % (Auto) Baso % (Auto) Lymph # Baso # Seg Neutrophils % Lymphocytes % (Manual) Monocytes % (Manual) Nucleated RBC % Seg Neutrophils # Seg Neutrophils # Man Monocytes # (Manual) PT INR Activated Clotting Time POC ABG pH 7.516 H POC ABG pCO2 28.0 L POC ABG pO2 Sodium Potassium Chloride Carbon Dioxide 21 L BUN 23 H Creatinine 0.2 L Glucose 137 H POC Glucose 131 H Calcium 7.9 L Magnesium Direct Bilirubin AST ALT Alkaline Phosphatase Total Creatine Kinase CK-MB (CK-2) CK-MB (CK-2) Rel Index Troponin T C-Reactive Protein Total Protein Albumin Triglycerides Ur Specific [place] Urine WBC (Auto) Miscellaneous Test 04/19/17 04/19/17 04/20/17 12:36 17:42 00:12 WBC RBC Hgb Hct MCV MCH RDW Plt Count Lymph % (Auto) [place] % (Auto) Eos % (Auto) Baso % (Auto) Lymph # Baso # Seg Neutrophils % Lymphocytes % (Manual) Monocytes % (Manual) Nucleated RBC % Seg Neutrophils # Seg Neutrophils # Man Monocytes # (Manual) PT INR Activated Clotting Time POC ABG pH POC ABG pCO2 POC ABG pO2 Sodium Potassium Chloride Carbon Dioxide BUN Creatinine Glucose POC Glucose 128 H 140 H 132 H Calcium Magnesium Direct Bilirubin AST ALT Alkaline Phosphatase Total Creatine Kinase CK-MB (CK-2) CK-MB (CK-2) Rel Index Troponin T C-Reactive Protein Total Protein Albumin Triglycerides Ur Specific [place] Urine WBC (Auto) Miscellaneous Test 04/20/17 04/20/17 04/20/17 03:35 03:35 05:10 WBC RBC 3.34 L Hgb 10.4 L Hct 31.6 L MCV 95 H MCH RDW Plt Count Lymph % (Auto) 12.9 L [place] % (Auto) Eos % (Auto) Baso % (Auto) Lymph # Baso # Seg Neutrophils % 77.3 H Lymphocytes % (Manual) Monocytes % (Manual) Nucleated RBC % Seg Neutrophils # Seg Neutrophils # Man Monocytes # (Manual) PT INR Activated Clotting Time POC ABG pH POC ABG pCO2 POC ABG pO2 Sodium Potassium Chloride Carbon Dioxide BUN Creatinine 0.3 L Glucose 155 H POC Glucose 135 H Calcium 7.8 L Magnesium Direct Bilirubin AST ALT Alkaline Phosphatase Total Creatine Kinase CK-MB (CK-2) CK-MB (CK-2) Rel Index Troponin T C-Reactive Protein Total Protein Albumin Triglycerides Ur Specific [place] Urine WBC (Auto) Miscellaneous Test 04/20/17 04/20/17 04/21/17 12:49 18:21 00:05 WBC RBC Hgb Hct MCV MCH RDW Plt Count Lymph % (Auto) [place] % (Auto) Eos % (Auto) Baso % (Auto) Lymph # Baso # Seg Neutrophils % Lymphocytes % (Manual) Monocytes % (Manual) Nucleated RBC % Seg Neutrophils # Seg Neutrophils # Man Monocytes # (Manual) PT INR Activated Clotting Time POC ABG pH POC ABG pCO2 POC ABG pO2 Sodium Potassium Chloride Carbon Dioxide BUN Creatinine Glucose POC Glucose 155 H 165 H 141 H Calcium Magnesium Direct Bilirubin AST ALT Alkaline Phosphatase Total Creatine Kinase CK-MB (CK-2) CK-MB (CK-2) Rel Index Troponin T C-Reactive Protein Total Protein Albumin Triglycerides Ur Specific [place] Urine WBC (Auto) Miscellaneous Test 04/21/17 04/21/17 04/21/17 06:00 12:11 17:04 WBC RBC Hgb Hct MCV MCH RDW Plt Count Lymph % (Auto) [place] % (Auto) Eos % (Auto) Baso % (Auto) Lymph # Baso # Seg Neutrophils % Lymphocytes % (Manual) Monocytes % (Manual) Nucleated RBC % Seg Neutrophils # Seg Neutrophils # Man Monocytes # (Manual) PT INR Activated Clotting Time POC ABG pH POC ABG pCO2 POC ABG pO2 Sodium Potassium Chloride Carbon Dioxide BUN Creatinine Glucose POC Glucose 152 H 165 H 156 H Calcium Magnesium Direct Bilirubin AST ALT Alkaline Phosphatase Total Creatine Kinase CK-MB (CK-2) CK-MB (CK-2) Rel Index Troponin T C-Reactive Protein Total Protein Albumin Triglycerides Ur Specific [place] Urine WBC (Auto) Miscellaneous Test 04/21/17 04/21/17 04/22/17 22:00 23:59 05:49 WBC RBC Hgb Hct MCV MCH RDW Plt Count Lymph % (Auto) [place] % (Auto) Eos % (Auto) Baso % (Auto) Lymph # Baso # Seg Neutrophils % Lymphocytes % (Manual) Monocytes % (Manual) Nucleated RBC % Seg Neutrophils # Seg Neutrophils # Man Monocytes # (Manual) PT INR Activated Clotting Time POC ABG pH POC ABG pCO2 POC ABG pO2 Sodium Potassium Chloride Carbon Dioxide BUN Creatinine Glucose POC Glucose 166 H 173 H Calcium Magnesium Direct Bilirubin AST ALT Alkaline Phosphatase Total Creatine Kinase CK-MB (CK-2) CK-MB (CK-2) Rel Index Troponin T C-Reactive Protein Total Protein Albumin Triglycerides Ur Specific [place] Urine WBC (Auto) 10.0 H Miscellaneous Test 04/22/17 04/22/17 04/23/17 11:11 18:04 00:37 WBC RBC Hgb Hct MCV MCH RDW Plt Count Lymph % (Auto) [place] % (Auto) Eos % (Auto) Baso % (Auto) Lymph # Baso # Seg Neutrophils % Lymphocytes % (Manual) Monocytes % (Manual) Nucleated RBC % Seg Neutrophils # Seg Neutrophils # Man Monocytes # (Manual) PT INR Activated Clotting Time POC ABG pH POC ABG pCO2 POC ABG pO2 Sodium Potassium Chloride Carbon Dioxide BUN Creatinine Glucose POC Glucose 172 H 140 H 135 H Calcium Magnesium Direct Bilirubin AST ALT Alkaline Phosphatase Total Creatine Kinase CK-MB (CK-2) CK-MB (CK-2) Rel Index Troponin T C-Reactive Protein Total Protein Albumin Triglycerides Ur Specific [place] Urine WBC (Auto) Miscellaneous Test 04/23/17 04/23/17 04/23/17 05:33 06:20 11:10 WBC RBC 3.19 L Hgb 9.9 L Hct 30.0 L MCV MCH RDW Plt Count Lymph % (Auto) 8.0 L [place] % (Auto) Eos % (Auto) Baso % (Auto) Lymph # 0.8 L Baso # Seg Neutrophils % 84.5 H Lymphocytes % (Manual) Monocytes % (Manual) Nucleated RBC % Seg Neutrophils # 8.2 H Seg Neutrophils # Man Monocytes # (Manual) PT INR Activated Clotting Time POC ABG pH POC ABG pCO2 POC ABG pO2 Sodium Potassium Chloride Carbon Dioxide BUN Creatinine Glucose POC Glucose 134 H 134 H Calcium Magnesium Direct Bilirubin AST ALT Alkaline Phosphatase Total Creatine Kinase CK-MB (CK-2) CK-MB (CK-2) Rel Index Troponin T C-Reactive Protein Total Protein Albumin Triglycerides Ur Specific [place] Urine WBC (Auto) Miscellaneous Test 04/23/17 04/24/17 04/24/17 17:26 00:53 06:46 WBC RBC Hgb Hct MCV MCH RDW Plt Count Lymph % (Auto) [place] % (Auto) Eos % (Auto) Baso % (Auto) Lymph # Baso # Seg Neutrophils % Lymphocytes % (Manual) Monocytes % (Manual) Nucleated RBC % Seg Neutrophils # Seg Neutrophils # Man Monocytes # (Manual) PT INR Activated Clotting Time POC ABG pH POC ABG pCO2 POC ABG pO2 Sodium Potassium Chloride Carbon Dioxide BUN Creatinine Glucose POC Glucose 164 H 146 H 125 H Calcium Magnesium Direct Bilirubin AST ALT Alkaline Phosphatase Total Creatine Kinase CK-MB (CK-2) CK-MB (CK-2) Rel Index Troponin T C-Reactive Protein Total Protein Albumin Triglycerides Ur Specific [place] Urine WBC (Auto) Miscellaneous Test 04/24/17 04/24/17 04/24/17 11:55 17:50 23:36 WBC RBC Hgb Hct MCV MCH RDW Plt Count Lymph % (Auto) [place] % (Auto) Eos % (Auto) Baso % (Auto) Lymph # Baso # Seg Neutrophils % Lymphocytes % (Manual) Monocytes % (Manual) Nucleated RBC % Seg Neutrophils # Seg Neutrophils # Man Monocytes # (Manual) PT INR Activated Clotting Time POC ABG pH POC ABG pCO2 POC ABG pO2 Sodium Potassium Chloride Carbon Dioxide BUN Creatinine Glucose POC Glucose 156 H 146 H 131 H Calcium Magnesium Direct Bilirubin AST ALT Alkaline Phosphatase Total Creatine Kinase CK-MB (CK-2) CK-MB (CK-2) Rel Index Troponin T C-Reactive Protein Total Protein Albumin Triglycerides Ur Specific [place] Urine WBC (Auto) Miscellaneous Test 04/25/17 04/25/17 04/25/17 04:51 05:16 07:07 WBC RBC Hgb Hct MCV MCH RDW Plt Count Lymph % (Auto) [place] % (Auto) Eos % (Auto) Baso % (Auto) Lymph # Baso # Seg Neutrophils % Lymphocytes % (Manual) Monocytes % (Manual) Nucleated RBC % Seg Neutrophils # Seg Neutrophils # Man Monocytes # (Manual) PT INR Activated Clotting Time POC ABG pH POC ABG pCO2 POC ABG pO2 Sodium Potassium Chloride Carbon Dioxide BUN Creatinine Glucose POC Glucose 139 H Calcium Magnesium Direct Bilirubin AST 105 H ALT 204 H Alkaline Phosphatase 189 H Total Creatine Kinase CK-MB (CK-2) CK-MB (CK-2) Rel Index Troponin T C-Reactive Protein Total Protein Albumin 2.4 L Triglycerides Ur Specific [place] Urine WBC (Auto) Miscellaneous Test Flexitest 1 H 04/25/17 04/25/17 04/25/17 12:29 17:23 23:32 WBC RBC Hgb Hct MCV MCH RDW Plt Count Lymph % (Auto) [place] % (Auto) Eos % (Auto) Baso % (Auto) Lymph # Baso # Seg Neutrophils % Lymphocytes % (Manual) Monocytes % (Manual) Nucleated RBC % Seg Neutrophils # Seg Neutrophils # Man Monocytes # (Manual) PT INR Activated Clotting Time POC ABG pH POC ABG pCO2 POC ABG pO2 Sodium Potassium Chloride Carbon Dioxide BUN Creatinine Glucose POC Glucose 132 H 133 H 128 H Calcium Magnesium Direct Bilirubin AST ALT Alkaline Phosphatase Total Creatine Kinase CK-MB (CK-2) CK-MB (CK-2) Rel Index Troponin T C-Reactive Protein Total Protein Albumin Triglycerides Ur Specific [place] Urine WBC (Auto) Miscellaneous Test 04/26/17 04/26/17 04/26/17 05:24 11:28 17:09 WBC RBC Hgb Hct MCV MCH RDW Plt Count Lymph % (Auto) [place] % (Auto) Eos % (Auto) Baso % (Auto) Lymph # Baso # Seg Neutrophils % Lymphocytes % (Manual) Monocytes % (Manual) Nucleated RBC % Seg Neutrophils # Seg Neutrophils # Man Monocytes # (Manual) PT INR Activated Clotting Time POC ABG pH POC ABG pCO2 POC ABG pO2 Sodium Potassium Chloride Carbon Dioxide BUN Creatinine Glucose POC Glucose 132 H 146 H 141 H Calcium Magnesium Direct Bilirubin AST ALT Alkaline Phosphatase Total Creatine Kinase CK-MB (CK-2) CK-MB (CK-2) Rel Index Troponin T C-Reactive Protein Total Protein Albumin Triglycerides Ur Specific [place] Urine WBC (Auto) Miscellaneous Test 04/26/17 04/27/17 04/27/17 23:52 05:40 05:40 WBC RBC 3.22 L Hgb 10.0 L Hct 29.9 L MCV MCH RDW Plt Count Lymph % (Auto) [place] % (Auto) Eos % (Auto) Baso % (Auto) Lymph # Baso # Seg Neutrophils % 76.6 H Lymphocytes % (Manual) Monocytes % (Manual) Nucleated RBC % Seg Neutrophils # Seg Neutrophils # Man Monocytes # (Manual) PT INR Activated Clotting Time POC ABG pH POC ABG pCO2 POC ABG pO2 Sodium Potassium Chloride Carbon Dioxide BUN Creatinine Glucose POC Glucose 140 H Calcium Magnesium Direct Bilirubin AST 66 H ALT 137 H Alkaline Phosphatase 169 H Total Creatine Kinase CK-MB (CK-2) CK-MB (CK-2) Rel Index Troponin T C-Reactive Protein Total Protein 6.2 L Albumin 2.6 L Triglycerides Ur Specific [place] Urine WBC (Auto) Miscellaneous Test 04/27/17 04/27/17 04/27/17 05:40 06:10 11:13 WBC RBC Hgb Hct MCV MCH RDW Plt Count Lymph % (Auto) [place] % (Auto) Eos % (Auto) Baso % (Auto) Lymph # Baso # Seg Neutrophils % Lymphocytes % (Manual) Monocytes % (Manual) Nucleated RBC % Seg Neutrophils # Seg Neutrophils # Man Monocytes # (Manual) PT INR Activated Clotting Time POC ABG pH POC ABG pCO2 POC ABG pO2 Sodium Potassium Chloride Carbon Dioxide BUN Creatinine 0.2 L Glucose 139 H POC Glucose 130 H 151 H Calcium Magnesium Direct Bilirubin AST ALT Alkaline Phosphatase Total Creatine Kinase CK-MB (CK-2) CK-MB (CK-2) Rel Index Troponin T C-Reactive Protein Total Protein Albumin Triglycerides Ur Specific [place] Urine WBC (Auto) Miscellaneous Test 04/27/17 04/27/17 04/28/17 17:37 23:19 05:24 WBC RBC Hgb Hct MCV MCH RDW Plt Count Lymph % (Auto) [place] % (Auto) Eos % (Auto) Baso % (Auto) Lymph # Baso # Seg Neutrophils % Lymphocytes % (Manual) Monocytes % (Manual) Nucleated RBC % Seg Neutrophils # Seg Neutrophils # Man Monocytes # (Manual) PT INR Activated Clotting Time POC ABG pH POC ABG pCO2 POC ABG pO2 Sodium Potassium Chloride Carbon Dioxide BUN Creatinine Glucose POC Glucose 159 H 130 H 132 H Calcium Magnesium Direct Bilirubin AST ALT Alkaline Phosphatase Total Creatine Kinase CK-MB (CK-2) CK-MB (CK-2) Rel Index Troponin T C-Reactive Protein Total Protein Albumin Triglycerides Ur Specific [place] Urine WBC (Auto) Miscellaneous Test 04/28/17 04/28/17 04/28/17 11:15 17:38 23:23 WBC RBC Hgb Hct MCV MCH RDW Plt Count Lymph % (Auto) [place] % (Auto) Eos % (Auto) Baso % (Auto) Lymph # Baso # Seg Neutrophils % Lymphocytes % (Manual) Monocytes % (Manual) Nucleated RBC % Seg Neutrophils # Seg Neutrophils # Man Monocytes # (Manual) PT INR Activated Clotting Time POC ABG pH POC ABG pCO2 POC ABG pO2 Sodium Potassium Chloride Carbon Dioxide BUN Creatinine Glucose POC Glucose 162 H 133 H 138 H Calcium Magnesium Direct Bilirubin AST ALT Alkaline Phosphatase Total Creatine Kinase CK-MB (CK-2) CK-MB (CK-2) Rel Index Troponin T C-Reactive Protein Total Protein Albumin Triglycerides Ur Specific [place] Urine WBC (Auto) Miscellaneous Test 04/29/17 04/29/17 04/29/17 05:15 12:55 17:21 WBC RBC Hgb Hct MCV MCH RDW Plt Count Lymph % (Auto) [place] % (Auto) Eos % (Auto) Baso % (Auto) Lymph # Baso # Seg Neutrophils % Lymphocytes % (Manual) Monocytes % (Manual) Nucleated RBC % Seg Neutrophils # Seg Neutrophils # Man Monocytes # (Manual) PT INR Activated Clotting Time POC ABG pH POC ABG pCO2 POC ABG pO2 Sodium Potassium Chloride Carbon Dioxide BUN Creatinine Glucose POC Glucose 135 H 127 H 138 H Calcium Magnesium Direct Bilirubin AST ALT Alkaline Phosphatase Total Creatine Kinase CK-MB (CK-2) CK-MB (CK-2) Rel Index Troponin T C-Reactive Protein Total Protein Albumin Triglycerides Ur Specific [place] Urine WBC (Auto) Miscellaneous Test 04/29/17 04/30/17 04/30/17 23:52 04:55 12:22 WBC RBC Hgb Hct MCV MCH RDW Plt Count Lymph % (Auto) [place] % (Auto) Eos % (Auto) Baso % (Auto) Lymph # Baso # Seg Neutrophils % Lymphocytes % (Manual) Monocytes % (Manual) Nucleated RBC % Seg Neutrophils # Seg Neutrophils # Man Monocytes # (Manual) PT INR Activated Clotting Time POC ABG pH POC ABG pCO2 POC ABG pO2 Sodium Potassium Chloride Carbon Dioxide BUN Creatinine Glucose POC Glucose 142 H 146 H 132 H Calcium Magnesium Direct Bilirubin AST ALT Alkaline Phosphatase Total Creatine Kinase CK-MB (CK-2) CK-MB (CK-2) Rel Index Troponin T C-Reactive Protein Total Protein Albumin Triglycerides Ur Specific [place] Urine WBC (Auto) Miscellaneous Test 04/30/17 04/30/17 04/30/17 14:25 17:47 18:20 WBC RBC Hgb Hct MCV MCH RDW Plt Count Lymph % (Auto) [place] % (Auto) Eos % (Auto) Baso % (Auto) Lymph # Baso # Seg Neutrophils % Lymphocytes % (Manual) Monocytes % (Manual) Nucleated RBC % Seg Neutrophils # Seg Neutrophils # Man Monocytes # (Manual) PT INR Activated Clotting Time POC ABG pH 7.551 H POC ABG pCO2 32.7 L POC ABG pO2 Sodium Potassium Chloride Carbon Dioxide BUN 21 H Creatinine 0.2 L Glucose 141 H POC Glucose 139 H Calcium Magnesium Direct Bilirubin AST ALT Alkaline Phosphatase Total Creatine Kinase CK-MB (CK-2) CK-MB (CK-2) Rel Index Troponin T C-Reactive Protein Total Protein Albumin Triglycerides Ur Specific [place] Urine WBC (Auto) Miscellaneous Test 05/01/17 05/01/17 05/01/17 01:26 05:30 05:30 WBC RBC 3.49 L Hgb 10.3 L Hct 31.9 L MCV MCH RDW Plt Count Lymph % (Auto) [place] % (Auto) 8.1 H Eos % (Auto) Baso % (Auto) Lymph # Baso # Seg Neutrophils % 71.3 H Lymphocytes % (Manual) Monocytes % (Manual) Nucleated RBC % Seg Neutrophils # Seg Neutrophils # Man Monocytes # (Manual) PT INR Activated Clotting Time POC ABG pH POC ABG pCO2 POC ABG pO2 Sodium 136 L Potassium Chloride 97.6 L Carbon Dioxide BUN Creatinine 0.2 L Glucose 123 H POC Glucose 116 H Calcium Magnesium Direct Bilirubin AST 71 H ALT 125 H Alkaline Phosphatase 158 H Total Creatine Kinase CK-MB (CK-2) CK-MB (CK-2) Rel Index Troponin T C-Reactive Protein Total Protein Albumin 2.6 L Triglycerides Ur Specific [place] Urine WBC (Auto) Miscellaneous Test 05/01/17 05/01/17 05/02/17 11:59 17:23 00:08 WBC RBC Hgb Hct MCV MCH RDW Plt Count Lymph % (Auto) [place] % (Auto) Eos % (Auto) Baso % (Auto) Lymph # Baso # Seg Neutrophils % Lymphocytes % (Manual) Monocytes % (Manual) Nucleated RBC % Seg Neutrophils # Seg Neutrophils # Man Monocytes # (Manual) PT INR Activated Clotting Time POC ABG pH POC ABG pCO2 POC ABG pO2 Sodium Potassium Chloride Carbon Dioxide BUN Creatinine Glucose POC Glucose 118 H 144 H 122 H Calcium Magnesium Direct Bilirubin AST ALT Alkaline Phosphatase Total Creatine Kinase CK-MB (CK-2) CK-MB (CK-2) Rel Index Troponin T C-Reactive Protein Total Protein Albumin Triglycerides Ur Specific [place] Urine WBC (Auto) Miscellaneous Test 05/02/17 05/02/17 05/02/17 05:50 11:21 17:48 WBC RBC Hgb Hct MCV MCH RDW Plt Count Lymph % (Auto) [place] % (Auto) Eos % (Auto) Baso % (Auto) Lymph # Baso # Seg Neutrophils % Lymphocytes % (Manual) Monocytes % (Manual) Nucleated RBC % Seg Neutrophils # Seg Neutrophils # Man Monocytes # (Manual) PT INR Activated Clotting Time POC ABG pH POC ABG pCO2 POC ABG pO2 Sodium Potassium Chloride Carbon Dioxide BUN Creatinine Glucose POC Glucose 120 H 121 H 140 H Calcium Magnesium Direct Bilirubin AST ALT Alkaline Phosphatase Total Creatine Kinase CK-MB (CK-2) CK-MB (CK-2) Rel Index Troponin T C-Reactive Protein Total Protein Albumin Triglycerides Ur Specific [place] Urine WBC (Auto) Miscellaneous Test 05/02/17 05/03/17 05/03/17 23:12 05:35 11:52 WBC RBC Hgb Hct MCV MCH RDW Plt Count Lymph % (Auto) [place] % (Auto) Eos % (Auto) Baso % (Auto) Lymph # Baso # Seg Neutrophils % Lymphocytes % (Manual) Monocytes % (Manual) Nucleated RBC % Seg Neutrophils # Seg Neutrophils # Man Monocytes # (Manual) PT INR Activated Clotting Time POC ABG pH POC ABG pCO2 POC ABG pO2 Sodium Potassium Chloride Carbon Dioxide BUN Creatinine Glucose POC Glucose 128 H 113 H 126 H Calcium Magnesium Direct Bilirubin AST ALT Alkaline Phosphatase Total Creatine Kinase CK-MB (CK-2) CK-MB (CK-2) Rel Index Troponin T C-Reactive Protein Total Protein Albumin Triglycerides Ur Specific [place] Urine WBC (Auto) Miscellaneous Test 05/03/17 05/03/17 05/04/17 17:29 23:26 04:55 WBC RBC Hgb Hct MCV MCH RDW Plt Count Lymph % (Auto) [place] % (Auto) Eos % (Auto) Baso % (Auto) Lymph # Baso # Seg Neutrophils % Lymphocytes % (Manual) Monocytes % (Manual) Nucleated RBC % Seg Neutrophils # Seg Neutrophils # Man Monocytes # (Manual) PT INR Activated Clotting Time POC ABG pH POC ABG pCO2 POC ABG pO2 Sodium Potassium Chloride Carbon Dioxide BUN Creatinine Glucose POC Glucose 141 H 129 H 126 H Calcium Magnesium Direct Bilirubin AST ALT Alkaline Phosphatase Total Creatine Kinase CK-MB (CK-2) CK-MB (CK-2) Rel Index Troponin T C-Reactive Protein Total Protein Albumin Triglycerides Ur Specific [place] Urine WBC (Auto) Miscellaneous Test 05/04/17 05/04/17 05/05/17 12:09 17:46 00:06 WBC RBC Hgb Hct MCV MCH RDW Plt Count Lymph % (Auto) [place] % (Auto) Eos % (Auto) Baso % (Auto) Lymph # Baso # Seg Neutrophils % Lymphocytes % (Manual) Monocytes % (Manual) Nucleated RBC % Seg Neutrophils # Seg Neutrophils # Man Monocytes # (Manual) PT INR Activated Clotting Time POC ABG pH POC ABG pCO2 POC ABG pO2 Sodium Potassium Chloride Carbon Dioxide BUN Creatinine Glucose POC Glucose 125 H 125 H 110 H Calcium Magnesium Direct Bilirubin AST ALT Alkaline Phosphatase Total Creatine Kinase CK-MB (CK-2) CK-MB (CK-2) Rel Index Troponin T C-Reactive Protein Total Protein Albumin Triglycerides Ur Specific [place] Urine WBC (Auto) Miscellaneous Test 05/05/17 05/05/17 05/05/17 05:48 11:41 16:19 WBC RBC Hgb Hct MCV MCH RDW Plt Count Lymph % (Auto) [place] % (Auto) Eos % (Auto) Baso % (Auto) Lymph # Baso # Seg Neutrophils % Lymphocytes % (Manual) Monocytes % (Manual) Nucleated RBC % Seg Neutrophils # Seg Neutrophils # Man Monocytes # (Manual) PT INR Activated Clotting Time POC ABG pH POC ABG pCO2 POC ABG pO2 Sodium Potassium Chloride Carbon Dioxide BUN Creatinine Glucose POC Glucose 124 H 122 H 120 H Calcium Magnesium Direct Bilirubin AST ALT Alkaline Phosphatase Total Creatine Kinase CK-MB (CK-2) CK-MB (CK-2) Rel Index Troponin T C-Reactive Protein Total Protein Albumin Triglycerides Ur Specific [place] Urine WBC (Auto) Miscellaneous Test 05/06/17 05/06/17 05/06/17 00:16 05:47 11:42 WBC RBC Hgb Hct MCV MCH RDW Plt Count Lymph % (Auto) St[place] % (Auto) Eos % (Auto) Baso % (Auto) Lymph # Baso # Seg Neutrophils % Lymphocytes % (Manual) Monocytes % (Manual) Nucleated RBC % Seg Neutrophils # Seg Neutrophils # Man Monocytes # (Manual) PT INR Activated Clotting Time POC ABG pH POC ABG pCO2 POC ABG pO2 Sodium Potassium Chloride Carbon Dioxide BUN Creatinine Glucose POC Glucose 110 H 142 H 120 H Calcium Magnesium Direct Bilirubin AST ALT Alkaline Phosphatase Total Creatine Kinase CK-MB (CK-2) CK-MB (CK-2) Rel Index Troponin T C-Reactive Protein Total Protein Albumin Triglycerides Ur Specific [place] Urine WBC (Auto) Miscellaneous Test 05/06/17 05/07/17 05/07/17 17:46 00:07 05:28 WBC RBC Hgb Hct MCV MCH RDW Plt Count Lymph % (Auto) [place] % (Auto) Eos % (Auto) Baso % (Auto) Lymph # Baso # Seg Neutrophils % Lymphocytes % (Manual) Monocytes % (Manual) Nucleated RBC % Seg Neutrophils # Seg Neutrophils # Man Monocytes # (Manual) PT INR Activated Clotting Time POC ABG pH POC ABG pCO2 POC ABG pO2 Sodium Potassium Chloride Carbon Dioxide BUN Creatinine Glucose POC Glucose 127 H 145 H 124 H Calcium Magnesium Direct Bilirubin AST ALT Alkaline Phosphatase Total Creatine Kinase CK-MB (CK-2) CK-MB (CK-2) Rel Index Troponin T C-Reactive Protein Total Protein Albumin Triglycerides Ur Specific [place] Urine WBC (Auto) Miscellaneous Test 05/07/17 05/07/17 05/08/17 11:17 17:14 00:03 WBC RBC Hgb Hct MCV MCH RDW Plt Count Lymph % (Auto) [place] % (Auto) Eos % (Auto) Baso % (Auto) Lymph # Baso # Seg Neutrophils % Lymphocytes % (Manual) Monocytes % (Manual) Nucleated RBC % Seg Neutrophils # Seg Neutrophils # Man Monocytes # (Manual) PT INR Activated Clotting Time POC ABG pH POC ABG pCO2 POC ABG pO2 Sodium Potassium Chloride Carbon Dioxide BUN Creatinine Glucose POC Glucose 144 H 125 H 122 H Calcium Magnesium Direct Bilirubin AST ALT Alkaline Phosphatase Total Creatine Kinase CK-MB (CK-2) CK-MB (CK-2) Rel Index Troponin T C-Reactive Protein Total Protein Albumin Triglycerides Ur Specific [place] Urine WBC (Auto) Miscellaneous Test 05/08/17 05/08/17 05/08/17 05:43 12:07 18:02 WBC RBC Hgb Hct MCV MCH RDW Plt Count Lymph % (Auto) [place] % (Auto) Eos % (Auto) Baso % (Auto) Lymph # Baso # Seg Neutrophils % Lymphocytes % (Manual) Monocytes % (Manual) Nucleated RBC % Seg Neutrophils # Seg Neutrophils # Man Monocytes # (Manual) PT INR Activated Clotting Time POC ABG pH POC ABG pCO2 POC ABG pO2 Sodium Potassium Chloride Carbon Dioxide BUN Creatinine Glucose POC Glucose 117 H 114 H 129 H Calcium Magnesium Direct Bilirubin AST ALT Alkaline Phosphatase Total Creatine Kinase CK-MB (CK-2) CK-MB (CK-2) Rel Index Troponin T C-Reactive Protein Total Protein Albumin Triglycerides Ur Specific [place] Urine WBC (Auto) Miscellaneous Test 05/08/17 05/09/17 05/09/17 23:53 04:19 05:14 WBC RBC Hgb Hct MCV MCH RDW Plt Count Lymph % (Auto) [place] % (Auto) Eos % (Auto) Baso % (Auto) Lymph # Baso # Seg Neutrophils % Lymphocytes % (Manual) Monocytes % (Manual) Nucleated RBC % Seg Neutrophils # Seg Neutrophils # Man Monocytes # (Manual) PT INR Activated Clotting Time POC ABG pH 7.524 H POC ABG pCO2 34.7 L POC ABG pO2 107 H Sodium Potassium Chloride Carbon Dioxide BUN Creatinine Glucose POC Glucose 125 H 118 H Calcium Magnesium Direct Bilirubin AST ALT Alkaline Phosphatase Total Creatine Kinase CK-MB (CK-2) CK-MB (CK-2) Rel Index Troponin T C-Reactive Protein Total Protein Albumin Triglycerides Ur Specific [place] Urine WBC (Auto) Miscellaneous Test 05/10/17 05/11/17 05/11/17 23:54 05:48 23:50 WBC RBC Hgb Hct MCV MCH RDW Plt Count Lymph % (Auto) [place] % (Auto) Eos % (Auto) Baso % (Auto) Lymph # Baso # Seg Neutrophils % Lymphocytes % (Manual) Monocytes % (Manual) Nucleated RBC % Seg Neutrophils # Seg Neutrophils # Man Monocytes # (Manual) PT INR Activated Clotting Time POC ABG pH POC ABG pCO2 POC ABG pO2 Sodium Potassium Chloride Carbon Dioxide BUN Creatinine Glucose POC Glucose 126 H 137 H 130 H Calcium Magnesium Direct Bilirubin AST ALT Alkaline Phosphatase Total Creatine Kinase CK-MB (CK-2) CK-MB (CK-2) Rel Index Troponin T C-Reactive Protein Total Protein Albumin Triglycerides Ur Specific [place] Urine WBC (Auto) Miscellaneous Test 05/12/17 05/12/17 05/12/17 05:48 11:33 18:00 WBC RBC Hgb Hct MCV MCH RDW Plt Count Lymph % (Auto) [place] % (Auto) Eos % (Auto) Baso % (Auto) Lymph # Baso # Seg Neutrophils % Lymphocytes % (Manual) Monocytes % (Manual) Nucleated RBC % Seg Neutrophils # Seg Neutrophils # Man Monocytes # (Manual) PT INR Activated Clotting Time POC ABG pH POC ABG pCO2 POC ABG pO2 Sodium Potassium Chloride Carbon Dioxide BUN Creatinine Glucose POC Glucose 126 H 116 H 131 H Calcium Magnesium Direct Bilirubin AST ALT Alkaline Phosphatase Total Creatine Kinase CK-MB (CK-2) CK-MB (CK-2) Rel Index Troponin T C-Reactive Protein Total Protein Albumin Triglycerides Ur Specific [place] Urine WBC (Auto) Miscellaneous Test 05/14/17 05/15/17 05/15/17 11:45 11:27 17:42 WBC RBC Hgb Hct MCV MCH RDW Plt Count Lymph % (Auto) [place] % (Auto) Eos % (Auto) Baso % (Auto) Lymph # Baso # Seg Neutrophils % Lymphocytes % (Manual) Monocytes % (Manual) Nucleated RBC % Seg Neutrophils # Seg Neutrophils # Man Monocytes # (Manual) PT INR Activated Clotting Time POC ABG pH POC ABG pCO2 POC ABG pO2 Sodium Potassium Chloride Carbon Dioxide BUN Creatinine Glucose POC Glucose 123 H 129 H 125 H Calcium Magnesium Direct Bilirubin AST ALT Alkaline Phosphatase Total Creatine Kinase CK-MB (CK-2) CK-MB (CK-2) Rel Index Troponin T C-Reactive Protein Total Protein Albumin Triglycerides Ur Specific [place] Urine WBC (Auto) Miscellaneous Test 05/16/17 05/16/17 05/17/17 00:29 06:50 03:45 WBC RBC Hgb 11.7 L Hct 34.8 L MCV MCH RDW 15.5 H Plt Count Lymph % (Auto) St[place] % (Auto) 7.7 H Eos % (Auto) Baso % (Auto) Lymph # Baso # Seg Neutrophils % 73.7 H Lymphocytes % (Manual) Monocytes % (Manual) Nucleated RBC % Seg Neutrophils # Seg Neutrophils # Man Monocytes # (Manual) PT INR Activated Clotting Time POC ABG pH POC ABG pCO2 POC ABG pO2 Sodium Potassium Chloride Carbon Dioxide BUN Creatinine Glucose POC Glucose 141 H 138 H Calcium Magnesium Direct Bilirubin AST ALT Alkaline Phosphatase Total Creatine Kinase CK-MB (CK-2) CK-MB (CK-2) Rel Index Troponin T C-Reactive Protein Total Protein Albumin Triglycerides Ur Specific [place] Urine WBC (Auto) Miscellaneous Test 05/17/17 05/20/17 05/23/17 03:45 17:31 23:09 WBC RBC Hgb Hct MCV MCH RDW Plt Count Lymph % (Auto) [place] % (Auto) Eos % (Auto) Baso % (Auto) Lymph # Baso # Seg Neutrophils % Lymphocytes % (Manual) Monocytes % (Manual) Nucleated RBC % Seg Neutrophils # Seg Neutrophils # Man Monocytes # (Manual) PT INR Activated Clotting Time POC ABG pH POC ABG pCO2 POC ABG pO2 Sodium Potassium Chloride Carbon Dioxide BUN Creatinine 0.2 L Glucose 131 H POC Glucose 116 H 122 H Calcium Magnesium Direct Bilirubin AST ALT Alkaline Phosphatase Total Creatine Kinase CK-MB (CK-2) CK-MB (CK-2) Rel Index Troponin T C-Reactive Protein Total Protein Albumin Triglycerides Ur Specific [place] Urine WBC (Auto) Miscellaneous Test 05/24/17 05/26/17 05/27/17 05:37 05:23 01:16 WBC RBC Hgb Hct MCV MCH RDW Plt Count Lymph % (Auto) [place] % (Auto) Eos % (Auto) Baso % (Auto) Lymph # Baso # Seg Neutrophils % Lymphocytes % (Manual) Monocytes % (Manual) Nucleated RBC % Seg Neutrophils # Seg Neutrophils # Man Monocytes # (Manual) PT INR Activated Clotting Time POC ABG pH POC ABG pCO2 POC ABG pO2 Sodium Potassium Chloride Carbon Dioxide BUN Creatinine Glucose POC Glucose 139 H 108 H 126 H Calcium Magnesium Direct Bilirubin AST ALT Alkaline Phosphatase Total Creatine Kinase CK-MB (CK-2) CK-MB (CK-2) Rel Index Troponin T C-Reactive Protein Total Protein Albumin Triglycerides Ur Specific [place] Urine WBC (Auto) Miscellaneous Test 05/27/17 05/27/17 05/29/17 05:33 21:49 04:37 WBC RBC Hgb Hct MCV MCH RDW 15.5 H Plt Count Lymph % (Auto) [place] % (Auto) Eos % (Auto) Baso % (Auto) Lymph # Baso # Seg Neutrophils % Lymphocytes % (Manual) Monocytes % (Manual) Nucleated RBC % Seg Neutrophils # Seg Neutrophils # Man Monocytes # (Manual) PT INR Activated Clotting Time POC ABG pH POC ABG pCO2 POC ABG pO2 Sodium Potassium Chloride Carbon Dioxide BUN Creatinine Glucose POC Glucose 129 H 110 H Calcium Magnesium Direct Bilirubin AST ALT Alkaline Phosphatase Total Creatine Kinase CK-MB (CK-2) CK-MB (CK-2) Rel Index Troponin T C-Reactive Protein Total Protein Albumin Triglycerides Ur Specific [place] Urine WBC (Auto) Miscellaneous Test 05/29/17 06/01/17 06/08/17 04:37 05:28 22:45 WBC RBC Hgb Hct MCV MCH RDW Plt Count Lymph % (Auto) [place] % (Auto) Eos % (Auto) Baso % (Auto) Lymph # Baso # Seg Neutrophils % Lymphocytes % (Manual) Monocytes % (Manual) Nucleated RBC % Seg Neutrophils # Seg Neutrophils # Man Monocytes # (Manual) PT INR Activated Clotting Time POC ABG pH POC ABG pCO2 POC ABG pO2 Sodium Potassium Chloride 97.6 L Carbon Dioxide BUN Creatinine 0.2 L Glucose 121 H POC Glucose 133 H 110 H Calcium Magnesium Direct Bilirubin AST ALT Alkaline Phosphatase Total Creatine Kinase CK-MB (CK-2) CK-MB (CK-2) Rel Index Troponin T C-Reactive Protein Total Protein Albumin Triglycerides Ur Specific [place] Urine WBC (Auto) Miscellaneous Test 06/09/17 06/09/17 06/09/17 14:50 18:29 22:12 WBC RBC Hgb Hct MCV MCH RDW Plt Count Lymph % (Auto) [place] % (Auto) Eos % (Auto) Baso % (Auto) Lymph # Baso # Seg Neutrophils % Lymphocytes % (Manual) Monocytes % (Manual) Nucleated RBC % Seg Neutrophils # Seg Neutrophils # Man Monocytes # (Manual) PT INR Activated Clotting Time POC ABG pH 7.496 H POC ABG pCO2 33.7 L POC ABG pO2 Sodium Potassium Chloride Carbon Dioxide BUN Creatinine Glucose POC Glucose 121 H 109 H Calcium Magnesium Direct Bilirubin AST ALT Alkaline Phosphatase Total Creatine Kinase CK-MB (CK-2) CK-MB (CK-2) Rel Index Troponin T C-Reactive Protein Total Protein Albumin Triglycerides Ur Specific [place] Urine WBC (Auto) Miscellaneous Test 06/10/17 05:05 WBC RBC Hgb Hct MCV MCH RDW Plt Count Lymph % (Auto) [place]arr % (Auto) Eos % (Auto) Baso % (Auto) Lymph # Baso # Seg Neutrophils % Lymphocytes % (Manual) Monocytes % (Manual) Nucleated RBC % Seg Neutrophils # Seg Neutrophils # Man Monocytes # (Manual) PT INR Activated Clotting Time POC ABG pH POC ABG pCO2 POC ABG pO2 Sodium Potassium Chloride Carbon Dioxide BUN Creatinine Glucose POC Glucose 123 H Calcium Magnesium Direct Bilirubin AST ALT Alkaline Phosphatase Total Creatine Kinase CK-MB (CK-2) CK-MB (CK-2) Rel Index Troponin T C-Reactive Protein Total Protein Albumin Triglycerides Ur Specific [place] Urine WBC (Auto) Miscellaneous Test
[2017-06-10] MEDS: TRANSDERM-SCOP TD SCH (15:44)
--- NOTE | 2017-06-10 17:27 | Progress Note ---
Assessment and Plan Assessment and plan: Anoxic encephalopathy STEMI, status post cardiac cath and stent placement Respiratory failure on trach on 4L of oxygen Aspiration pneumonia treated with Iv antibiotics DVT; on eliquis - No change from baseline - No Family member in the room to discuss a plan of care Disposition - Transfer to the floor. History Interval history: Patient was seen and evaluated this morning, no change from baseline, unresponsive, on 4 L of oxygen Via trach. Hospitalist Physical - Physical exam Narrative exam: Patient has trach and on 4L of oxygen. The patient appeared well nourished and normally developed. Vital signs as documented. Head exam is unremarkable. No scleral icterus . Neck is without jugular venous distension, thyromegaly, or carotid bruits. Lungs are clear to auscultation. Cardiac exam reveals regular rate and Rhythm. First and second heart sounds normal. No murmurs, rubs or gallops. Abdominal exam reveals normal bowel sounds, no masses, no organomegaly and no aortic enlargement. Extremities are nonedematous and both femoral and pedal pulses are normal. [employer]: In vegetative state - Constitutional Vitals: Temp Pulse Resp BP Pulse Ox 97.8 F 57 L 36 H 103/67 100 06/10/17 16:00 06/10/17 16:00 06/10/17 16:00 06/10/17 16:00 06/10/17 16:00 General appearance: Present: other (tracheostomy on vent) Results - Labs CBC & Chem 7: 05/29/17 04:37 05/29/17 04:37 Labs: Laboratory Last Values WBC 8.0 K/mm3 (4.5-11.0) 05/29/17 04:37 RBC 4.52 M/mm3 (3.65-5.03) 05/29/17 04:37 Hgb 13.6 gm/dl (11.8-15.2) 05/29/17 04:37 Hct 40.6 % (35.5-45.6) 05/29/17 04:37 MCV 90 fl (84-94) 05/29/17 04:37 MCH 30 pg (28-32) 05/29/17 04:37 MCHC 33 % (32-34) 05/29/17 04:37 RDW 15.5 % (13.2-15.2) H 05/29/17 04:37 Plt Count 222 K/mm3 (140-440) 05/29/17 04:37 Lymph % (Auto) 15.6 % (13.4-35.0) 05/17/17 03:45 [place] % (Auto) 7.7 % (0.0-7.3) H 05/17/17 03:45 Eos % (Auto) 2.7 % (0.0-4.3) 05/17/17 03:45 Baso % (Auto) 0.3 % (0.0-1.8) 05/17/17 03:45 Lymph # 1.5 K/mm3 (1.2-5.4) 05/17/17 03:45 [place] # 0.7 K/mm3 (0.0-0.8) 05/17/17 03:45 Eos # 0.3 K/mm3 (0.0-0.4) 05/17/17 03:45 Baso # 0.0 K/mm3 (0.0-0.1) 05/17/17 03:45 Add Manual Diff Complete 03/30/17 03:50 Total Counted 100 03/30/17 03:50 Seg Neutrophils % 73.7 % (40.0-70.0) H 05/17/17 03:45 Seg Neuts % (Manual) 65.0 % (40.0-70.0) 03/30/17 03:50 Band Neutrophils % 17.0 % 03/30/17 03:50 Lymphocytes % (Manual) 7.0 % (13.4-35.0) L 03/30/17 03:50 Reactive Lymphs % (Man) 0 % 03/30/17 03:50 Monocytes % (Manual) 7.0 % (0.0-7.3) 03/30/17 03:50 Eosinophils % (Manual) 0 % (0.0-4.3) 03/30/17 03:50 Basophils % (Manual) 0 % (0.0-1.8) 03/30/17 03:50 Metamyelocytes % 4.0 % 03/30/17 03:50 Myelocytes % 0 % 03/30/17 03:50 Promyelocytes % 0 % 03/30/17 03:50 Blast Cells % 0 % 03/30/17 03:50 Nucleated RBC % Not Reportable 03/30/17 03:50 Seg Neutrophils # 6.9 K/mm3 (1.8-7.7) 05/17/17 03:45 Seg Neutrophils # Man 12.7 K/mm3 (1.8-7.7) H 03/30/17 03:50 Band Neutrophils # 3.3 K/mm3 03/30/17 03:50 Lymphocytes # (Manual) 1.4 K/mm3 (1.2-5.4) 03/30/17 03:50 Abs React Lymphs (Man) 0.0 K/mm3 03/30/17 03:50 Monocytes # (Manual) 1.4 K/mm3 (0.0-0.8) H 03/30/17 03:50 Eosinophils # (Manual) 0.0 K/mm3 (0.0-0.4) 03/30/17 03:50 Basophils # (Manual) 0.0 K/mm3 (0.0-0.1) 03/30/17 03:50 Metamyelocytes # 0.8 K/mm3 03/30/17 03:50 Myelocytes # 0.0 K/mm3 03/30/17 03:50 Promyelocytes # 0.0 K/mm3 03/30/17 03:50 Blast Cells # 0.0 K/mm3 03/30/17 03:50 WBC Morphology Not Reportable 03/30/17 03:50 Hypersegmented Neuts Not Reportable 03/30/17 03:50 Hyposegmented Neuts Not Reportable 03/30/17 03:50 Hypogranular Neuts Not Reportable 03/30/17 03:50 Smudge Cells Not Reportable 03/30/17 03:50 Toxic Granulation Not Reportable 03/30/17 03:50 Toxic Vacuolation Not Reportable 03/30/17 03:50 Dohle Bodies Not Reportable 03/30/17 03:50 Pelger-Huet Anomaly Not Reportable 03/30/17 03:50 Sherry Rods Not Reportable 03/30/17 03:50 Platelet Estimate Appears normal 03/30/17 03:50 Clumped Platelets Not Reportable 03/30/17 03:50 Plt Clumps, EDTA Not Reportable 03/30/17 03:50 Large Platelets Not Reportable 03/30/17 03:50 Giant Platelets Not Reportable 03/30/17 03:50 Platelet Satelliting Not Reportable 03/30/17 03:50 Plt Morphology Comment Not Reportable 03/30/17 03:50 RBC Morphology Not Reportable 03/30/17 03:50 Dimorphic RBCs Not Reportable 03/30/17 03:50 Polychromasia Not Reportable 03/30/17 03:50 Hypochromasia Not Reportable 03/30/17 03:50 Poikilocytosis Not Reportable 03/30/17 03:50 Anisocytosis Few 03/30/17 03:50 Microcytosis Not Reportable 03/30/17 03:50 Macrocytosis Not Reportable 03/30/17 03:50 Spherocytes Not Reportable 03/30/17 03:50 Pappenheimer Bodies Not Reportable 03/30/17 03:50 Sickle Cells Not Reportable 03/30/17 03:50 Target Cells Not Reportable 03/30/17 03:50 Tear Drop Cells Not Reportable 03/30/17 03:50 Ovalocytes Not Reportable 03/30/17 03:50 Helmet Cells Not Reportable 03/30/17 03:50 Tamayo-Hesston Bodies Not Reportable 03/30/17 03:50 [place] Rings Not Reportable 03/30/17 03:50 Nusrat Cells Not Reportable 03/30/17 03:50 Bite Cells Not Reportable 03/30/17 03:50 Crenated Cell Not Reportable 03/30/17 03:50 Elliptocytes Not Reportable 03/30/17 03:50 Acanthocytes (Spur) Not Reportable 03/30/17 03:50 Rouleaux Not Reportable 03/30/17 03:50 Hemoglobin C Crystals Not Reportable 03/30/17 03:50 Schistocytes Not Reportable 03/30/17 03:50 Malaria parasites Not Reportable 03/30/17 03:50 Jermaine Bodies Not Reportable 03/30/17 03:50 Hem Pathologist Commnt No 03/30/17 03:50 PT 14.9 Sec. (12.2-14.9) 04/10/17 04:16 INR 1.11 (0.87-1.13) 04/10/17 04:16 APTT 27.8 Sec. (24.2-36.6) 04/10/17 04:16 Activated Clotting Time 92 (74-137) 03/29/17 17:47 POC ABG pH 7.496 (7.35-7.45) H 06/09/17 18:29 POC ABG pCO2 33.7 (35-45) L 06/09/17 18:29 POC ABG pO2 103 (80-105) 06/09/17 18:29 POC ABG HCO3 26.0 06/09/17 18:29 POC ABG Total CO2 27 06/09/17 18:29 POC ABG O2 Sat 98 06/09/17 18:29 POC ABG Base Excess 3 06/09/17 18:29 FiO2 28 % 06/09/17 18:29 Sodium 138 mmol/L (137-145) 05/29/17 04:37 Potassium 4.2 mmol/L (3.6-5.0) 05/29/17 04:37 Chloride 97.6 mmol/L (98-107) L 05/29/17 04:37 Carbon Dioxide 23 mmol/L (22-30) 05/29/17 04:37 Anion Gap 22 mmol/L 05/29/17 04:37 BUN 14 mg/dL (9-20) 05/29/17 04:37 Creatinine 0.2 mg/dL (0.8-1.5) L 05/29/17 04:37 Estimated GFR > 60 ml/min 05/29/17 04:37 BUN/Creatinine Ratio 70 % 05/29/17 04:37 Glucose 121 mg/dL (75-100) H 05/29/17 04:37 POC Glucose 130 (70-105) H 06/10/17 13:00 Calcium 9.5 mg/dL (8.4-10.2) 05/29/17 04:37 Phosphorus 3.50 mg/dL (2.5-4.5) 04/13/17 04:45 Magnesium 1.80 mg/dL (1.7-2.3) 05/01/17 05:30 Total Bilirubin 0.60 mg/dL (0.1-1.2) 05/01/17 05:30 Direct Bilirubin < 0.2 mg/dL (0-0.2) 04/27/17 05:40 Indirect Bilirubin 0.3 mg/dL 04/25/17 04:51 AST 71 units/L (5-40) H 05/01/17 05:30 ALT 125 units/L (7-56) H 05/01/17 05:30 Alkaline Phosphatase 158 units/L (35-129) H 05/01/17 05:30 Total Creatine Kinase 1404 units/L (55-170) H 04/12/17 21:36 CK-MB (CK-2) 8.0 ng/mL (0.0-4.0) H 04/12/17 21:36 CK-MB (CK-2) Rel Index 0.5 (0-4) 04/12/17 21:36 Troponin T 0.767 ng/mL (0.00-0.029) H* 04/12/17 21:36 C-Reactive Protein 21.80 mg/dL (0.00-1.30) H 03/30/17 16:04 Total Protein 6.7 g/dL (6.3-8.2) 05/01/17 05:30 Albumin 2.6 g/dL (3.9-5) L 05/01/17 05:30 Albumin/Globulin Ratio 0.6 % 05/01/17 05:30 Triglycerides 151 mg/dL (2-149) H 04/01/17 04:29 Cholesterol 164 mg/dL (50-199) 03/29/17 19:52 LDL Cholesterol Direct 81 mg/dL (50-130) 03/29/17 19:52 HDL Cholesterol 44 mg/dL (40-59) 03/29/17 19:52 Cholesterol/HDL Ratio 3.72 % 03/29/17 19:52 Urine Color [place] (Yellow) 04/21/17 22:00 Urine Turbidity Clear (Clear) 04/21/17 22:00 Urine pH 5.0 (5.0-7.0) 04/21/17 22:00 Ur Specific [place] 1.029 (1.003-1.030) 04/21/17 22:00 Urine Protein 30 mg/dl mg/dL (Negative) 04/21/17 22:00 Urine Glucose (UA) Neg mg/dL (Negative) 04/21/17 22:00 Urine Ketones Neg mg/dL (Negative) 04/21/17 22:00 Urine Blood Mod (Negative) 04/21/17 22:00 Urine Nitrite Neg (Negative) 04/21/17 22:00 Urine Bilirubin Neg (Negative) 04/21/17 22:00 Urine Urobilinogen 4.0 mg/dL (<2.0) 04/21/17 22:00 Ur Leukocyte Esterase Neg (Negative) 04/21/17 22:00 Urine WBC (Auto) 10.0 /HPF (0.0-6.0) H 04/21/17 22:00 Urine RBC (Auto) 44.0 /HPF (0.0-6.0) 04/21/17 22:00 U Epithel Cells (Auto) < 1.0 /HPF (0-13.0) 04/21/17 22:00 Amorphous Crystals 1+ 03/30/17 09:45 Urine Mucus 3+ /HPF 04/21/17 22:00 Urine Opiates Screen Presumptive negative 03/30/17 09:45 Urine Methadone Screen Presumptive negative 03/30/17 09:45 Ur Barbiturates Screen Presumptive negative 03/30/17 09:45 Ur Phencyclidine Scrn Presumptive negative 03/30/17 09:45 Ur Amphetamines Screen Presumptive positive 03/30/17 09:45 U Benzodiazepines Scrn Presumptive positive 03/30/17 09:45 Urine Cocaine Screen Presumptive negative 03/30/17 09:45 U Marijuana (THC) Screen Presumptive negative 03/30/17 09:45 Drugs of Abuse Note Disclamer 03/30/17 09:45 Miscellaneous Test Flexitest 1 H 04/25/17 07:07 Blood Type O POSITIVE 03/29/17 11:35 Antibody Screen Negative 03/29/17 11:35
[2017-06-11] MEDS: PLAVIX PO SCH (10:14)
[2017-06-11] MEDS: ASPIRIN PO SCH (10:14)
[2017-06-11] MEDS: PROTONIX FEEDTUBE SCH (10:14)
[2017-06-11] MEDS: ELIQUIS PO SCH ×2 (10:14→22:35)
[2017-06-11] MEDS: CORDARONE PO SCH ×2 (10:14→22:35)
[2017-06-11] MEDS: LOPRESSOR PO SCH ×2 (10:17→22:36)
[2017-06-11] MEDS: ZESTRIL PO SCH (10:18)
--- NOTE | 2017-06-11 12:44 | Progress Note ---
Assessment and Plan Assessment and plan: Anoxic encephalopathy STEMI, status post cardiac cath and stent placement Respiratory failure on trach on 4L of oxygen Aspiration pneumonia treated with Iv antibiotics DVT; on eliquis - No change from baseline - No Family member in the room to discuss a plan of care Disposition - Transfer to the floor. History Interval history: Patient was seen and evaluated this morning, no change from baseline, unresponsive, on 4 L of oxygen Via trach. Hospitalist Physical - Physical exam Narrative exam: Patient has trach and on 4L of oxygen. The patient appeared well nourished and normally developed. Vital signs as documented. Head exam is unremarkable. No scleral icterus . Neck is without jugular venous distension, thyromegaly, or carotid bruits. Lungs are clear to auscultation. Cardiac exam reveals regular rate and Rhythm. First and second heart sounds normal. No murmurs, rubs or gallops. Abdominal exam reveals normal bowel sounds, no masses, no organomegaly and no aortic enlargement. Extremities are nonedematous and both femoral and pedal pulses are normal. 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 - Constitutional Vitals: Temp Pulse Resp BP Pulse Ox 99.4 F 65 20 107/62 99 06/11/17 00:43 06/11/17 10:18 06/11/17 00:43 06/11/17 10:18 06/11/17 01:35 General appearance: Present: other (tracheostomy on vent) Results - Labs CBC & Chem 7: 05/29/17 04:37 05/29/17 04:37 Labs: Laboratory Last Values WBC 8.0 K/mm3 (4.5-11.0) 05/29/17 04:37 RBC 4.52 M/mm3 (3.65-5.03) 05/29/17 04:37 Hgb 13.6 gm/dl (11.8-15.2) 05/29/17 04:37 Hct 40.6 % (35.5-45.6) 05/29/17 04:37 MCV 90 fl (84-94) 05/29/17 04:37 MCH 30 pg (28-32) 05/29/17 04:37 MCHC 33 % (32-34) 05/29/17 04:37 RDW 15.5 % (13.2-15.2) H 05/29/17 04:37 Plt Count 222 K/mm3 (140-440) 05/29/17 04:37 Lymph % (Auto) 15.6 % (13.4-35.0) 05/17/17 03:45 [place] % (Auto) 7.7 % (0.0-7.3) H 05/17/17 03:45 Eos % (Auto) 2.7 % (0.0-4.3) 05/17/17 03:45 Baso % (Auto) 0.3 % (0.0-1.8) 05/17/17 03:45 Lymph # 1.5 K/mm3 (1.2-5.4) 05/17/17 03:45 [place] # 0.7 K/mm3 (0.0-0.8) 05/17/17 03:45 Eos # 0.3 K/mm3 (0.0-0.4) 05/17/17 03:45 Baso # 0.0 K/mm3 (0.0-0.1) 05/17/17 03:45 Add Manual Diff Complete 03/30/17 03:50 Total Counted 100 03/30/17 03:50 Seg Neutrophils % 73.7 % (40.0-70.0) H 05/17/17 03:45 Seg Neuts % (Manual) 65.0 % (40.0-70.0) 03/30/17 03:50 Band Neutrophils % 17.0 % 03/30/17 03:50 Lymphocytes % (Manual) 7.0 % (13.4-35.0) L 03/30/17 03:50 Reactive Lymphs % (Man) 0 % 03/30/17 03:50 Monocytes % (Manual) 7.0 % (0.0-7.3) 03/30/17 03:50 Eosinophils % (Manual) 0 % (0.0-4.3) 03/30/17 03:50 Basophils % (Manual) 0 % (0.0-1.8) 03/30/17 03:50 Metamyelocytes % 4.0 % 03/30/17 03:50 Myelocytes % 0 % 03/30/17 03:50 Promyelocytes % 0 % 03/30/17 03:50 Blast Cells % 0 % 03/30/17 03:50 Nucleated RBC % Not Reportable 03/30/17 03:50 Seg Neutrophils # 6.9 K/mm3 (1.8-7.7) 05/17/17 03:45 Seg Neutrophils # Man 12.7 K/mm3 (1.8-7.7) H 03/30/17 03:50 Band Neutrophils # 3.3 K/mm3 03/30/17 03:50 Lymphocytes # (Manual) 1.4 K/mm3 (1.2-5.4) 03/30/17 03:50 Abs React Lymphs (Man) 0.0 K/mm3 03/30/17 03:50 Monocytes # (Manual) 1.4 K/mm3 (0.0-0.8) H 03/30/17 03:50 Eosinophils # (Manual) 0.0 K/mm3 (0.0-0.4) 03/30/17 03:50 Basophils # (Manual) 0.0 K/mm3 (0.0-0.1) 03/30/17 03:50 Metamyelocytes # 0.8 K/mm3 03/30/17 03:50 Myelocytes # 0.0 K/mm3 03/30/17 03:50 Promyelocytes # 0.0 K/mm3 03/30/17 03:50 Blast Cells # 0.0 K/mm3 03/30/17 03:50 WBC Morphology Not Reportable 03/30/17 03:50 Hypersegmented Neuts Not Reportable 03/30/17 03:50 Hyposegmented Neuts Not Reportable 03/30/17 03:50 Hypogranular Neuts Not Reportable 03/30/17 03:50 Smudge Cells Not Reportable 03/30/17 03:50 Toxic Granulation Not Reportable 03/30/17 03:50 Toxic Vacuolation Not Reportable 03/30/17 03:50 Dohle Bodies Not Reportable 03/30/17 03:50 Pelger-Huet Anomaly Not Reportable 03/30/17 03:50 Sherry Rods Not Reportable 03/30/17 03:50 Platelet Estimate Appears normal 03/30/17 03:50 Clumped Platelets Not Reportable 03/30/17 03:50 Plt Clumps, EDTA Not Reportable 03/30/17 03:50 Large Platelets Not Reportable 03/30/17 03:50 Giant Platelets Not Reportable 03/30/17 03:50 Platelet Satelliting Not Reportable 03/30/17 03:50 Plt Morphology Comment Not Reportable 03/30/17 03:50 RBC Morphology Not Reportable 03/30/17 03:50 Dimorphic RBCs Not Reportable 03/30/17 03:50 Polychromasia Not Reportable 03/30/17 03:50 Hypochromasia Not Reportable 03/30/17 03:50 Poikilocytosis Not Reportable 03/30/17 03:50 Anisocytosis Few 03/30/17 03:50 Microcytosis Not Reportable 03/30/17 03:50 Macrocytosis Not Reportable 03/30/17 03:50 Spherocytes Not Reportable 03/30/17 03:50 Pappenheimer Bodies Not Reportable 03/30/17 03:50 Sickle Cells Not Reportable 03/30/17 03:50 Target Cells Not Reportable 03/30/17 03:50 Tear Drop Cells Not Reportable 03/30/17 03:50 Ovalocytes Not Reportable 03/30/17 03:50 Helmet Cells Not Reportable 03/30/17 03:50 [place] Bodies Not Reportable 03/30/17 03:50 [place] Rings Not Reportable 03/30/17 03:50 [place] Cells Not Reportable 03/30/17 03:50 Bite Cells Not Reportable 03/30/17 03:50 Crenated Cell Not Reportable 03/30/17 03:50 Elliptocytes Not Reportable 03/30/17 03:50 Acanthocytes (Spur) Not Reportable 03/30/17 03:50 Rouleaux Not Reportable 03/30/17 03:50 Hemoglobin C Crystals Not Reportable 03/30/17 03:50 Schistocytes Not Reportable 03/30/17 03:50 Malaria parasites Not Reportable 03/30/17 03:50 Jermaine Bodies Not Reportable 03/30/17 03:50 Hem Pathologist Commnt No 03/30/17 03:50 PT 14.9 Sec. (12.2-14.9) 04/10/17 04:16 INR 1.11 (0.87-1.13) 04/10/17 04:16 APTT 27.8 Sec. (24.2-36.6) 04/10/17 04:16 Activated Clotting Time 92 (74-137) 03/29/17 17:47 POC ABG pH 7.496 (7.35-7.45) H 06/09/17 18:29 POC ABG pCO2 33.7 (35-45) L 06/09/17 18:29 POC ABG pO2 103 (80-105) 06/09/17 18:29 POC ABG HCO3 26.0 06/09/17 18:29 POC ABG Total CO2 27 06/09/17 18:29 POC ABG O2 Sat 98 06/09/17 18:29 POC ABG Base Excess 3 06/09/17 18:29 FiO2 28 % 06/09/17 18:29 Sodium 138 mmol/L (137-145) 05/29/17 04:37 Potassium 4.2 mmol/L (3.6-5.0) 05/29/17 04:37 Chloride 97.6 mmol/L (98-107) L 05/29/17 04:37 Carbon Dioxide 23 mmol/L (22-30) 05/29/17 04:37 Anion Gap 22 mmol/L 05/29/17 04:37 BUN 14 mg/dL (9-20) 05/29/17 04:37 Creatinine 0.2 mg/dL (0.8-1.5) L 05/29/17 04:37 Estimated GFR > 60 ml/min 05/29/17 04:37 BUN/Creatinine Ratio 70 % 05/29/17 04:37 Glucose 121 mg/dL (75-100) H 05/29/17 04:37 POC Glucose 113 (70-105) H 06/10/17 21:22 Calcium 9.5 mg/dL (8.4-10.2) 05/29/17 04:37 Phosphorus 3.50 mg/dL (2.5-4.5) 04/13/17 04:45 Magnesium 1.80 mg/dL (1.7-2.3) 05/01/17 05:30 Total Bilirubin 0.60 mg/dL (0.1-1.2) 05/01/17 05:30 Direct Bilirubin < 0.2 mg/dL (0-0.2) 04/27/17 05:40 Indirect Bilirubin 0.3 mg/dL 04/25/17 04:51 AST 71 units/L (5-40) H 05/01/17 05:30 ALT 125 units/L (7-56) H 05/01/17 05:30 Alkaline Phosphatase 158 units/L (35-129) H 05/01/17 05:30 Total Creatine Kinase 1404 units/L (55-170) H 04/12/17 21:36 CK-MB (CK-2) 8.0 ng/mL (0.0-4.0) H 04/12/17 21:36 CK-MB (CK-2) Rel Index 0.5 (0-4) 04/12/17 21:36 Troponin T 0.767 ng/mL (0.00-0.029) H* 04/12/17 21:36 C-Reactive Protein 21.80 mg/dL (0.00-1.30) H 03/30/17 16:04 Total Protein 6.7 g/dL (6.3-8.2) 05/01/17 05:30 Albumin 2.6 g/dL (3.9-5) L 05/01/17 05:30 Albumin/Globulin Ratio 0.6 % 05/01/17 05:30 Triglycerides 151 mg/dL (2-149) H 04/01/17 04:29 Cholesterol 164 mg/dL (50-199) 03/29/17 19:52 LDL Cholesterol Direct 81 mg/dL (50-130) 03/29/17 19:52 HDL Cholesterol 44 mg/dL (40-59) 03/29/17 19:52 Cholesterol/HDL Ratio 3.72 % 03/29/17 19:52 Urine Color [place] (Yellow) 04/21/17 22:00 Urine Turbidity Clear (Clear) 04/21/17 22:00 Urine pH 5.0 (5.0-7.0) 04/21/17 22:00 Ur Specific [place] 1.029 (1.003-1.030) 04/21/17 22:00 Urine Protein 30 mg/dl mg/dL (Negative) 04/21/17 22:00 Urine Glucose (UA) Neg mg/dL (Negative) 04/21/17 22:00 Urine Ketones Neg mg/dL (Negative) 04/21/17 22:00 Urine Blood Mod (Negative) 04/21/17 22:00 Urine Nitrite Neg (Negative) 04/21/17 22:00 Urine Bilirubin Neg (Negative) 04/21/17 22:00 Urine Urobilinogen 4.0 mg/dL (<2.0) 04/21/17 22:00 Ur Leukocyte Esterase Neg (Negative) 04/21/17 22:00 Urine WBC (Auto) 10.0 /HPF (0.0-6.0) H 04/21/17 22:00 Urine RBC (Auto) 44.0 /HPF (0.0-6.0) 04/21/17 22:00 U Epithel Cells (Auto) < 1.0 /HPF (0-13.0) 04/21/17 22:00 Amorphous Crystals 1+ 03/30/17 09:45 Urine Mucus 3+ /HPF 04/21/17 22:00 Urine Opiates Screen Presumptive negative 03/30/17 09:45 Urine Methadone Screen Presumptive negative 03/30/17 09:45 Ur Barbiturates Screen Presumptive negative 03/30/17 09:45 Ur Phencyclidine Scrn Presumptive negative 03/30/17 09:45 Ur Amphetamines Screen Presumptive positive 03/30/17 09:45 U Benzodiazepines Scrn Presumptive positive 03/30/17 09:45 Urine Cocaine Screen Presumptive negative 03/30/17 09:45 U Marijuana (THC) Screen Presumptive negative 03/30/17 09:45 Drugs of Abuse Note Disclamer 03/30/17 09:45 Miscellaneous Test Flexitest 1 H 04/25/17 07:07 Blood Type O POSITIVE 03/29/17 11:35 Antibody Screen Negative 03/29/17 11:35
[2017-06-12 05:35] LABS: Basophils % (Auto) 0.4 % (0.0-1.8); Eosinophils # (Auto) 0.3 K/mm3 (0.0-0.4); Eosinophils % (Auto) 3.3 % (0.0-4.3); Hematocrit 37.3 % (35.5-45.6); Hemoglobin 12.5 gm/dl (11.8-15.2); Lymphocytes # (Auto) 1.6 K/mm3 (1.2-5.4); Lymphocytes % (Auto) 20.8 % (13.4-35.0); Mean Corpuscular HGB Conc 34 % (32-34); Mean Corpuscular Hemoglobin 30 pg (28-32); Mean Corpuscular Volume 88 fl (84-94); Monocytes # (Auto) 0.6 K/mm3 (0.0-0.8); Monocytes % (Auto) 8.2 % (0.0-7.3); Platelet Count 227 K/mm3 (140-440); Red Blood Count 4.23 M/mm3 (3.65-5.03); Red Cell Distribution Width 15.5 % (13.2-15.2)
[2017-06-12 06:02] LABS: BUN/Creatinine Ratio 50; Blood Urea Nitrogen 15 mg/dL (9-20); Calcium 9.5 mg/dL (8.4-10.2); Hemolysis Index 4
[2017-06-12] MEDS: ASPIRIN PO SCH (10:03)
[2017-06-12] MEDS: PLAVIX PO SCH (10:03)
[2017-06-12] MEDS: ELIQUIS PO SCH ×2 (10:03→22:06)
[2017-06-12] MEDS: CORDARONE PO SCH ×2 (10:04→22:07)
[2017-06-12] MEDS: PROTONIX FEEDTUBE SCH (10:04)
[2017-06-12] MEDS: LOPRESSOR PO SCH ×2 (10:04→22:07)
[2017-06-12] MEDS: ZESTRIL PO SCH (10:05)
--- NOTE | 2017-06-12 13:39 | Progress Note ---
Assessment and Plan Assessment and plan: Anoxic encephalopathy STEMI, status post cardiac cath and stent placement Respiratory failure on trach on 4L of oxygen Aspiration pneumonia treated with Iv antibiotics DVT; on eliquis - No change from baseline - No Family member in the room to discuss a plan of care Disposition - Continue follow up with families if they are able to take him home. History Interval history: Patient was seen and evaluated this morning, no change from baseline, unresponsive, on 4 L of oxygen Via trach. Hospitalist Physical - Physical exam Narrative exam: Patient has trach and on 4L of oxygen. The patient appeared well nourished and normally developed. Vital signs as documented. Head exam is unremarkable. No scleral icterus . Neck is without jugular venous distension, thyromegaly, or carotid bruits. Lungs are clear to auscultation. Cardiac exam reveals regular rate and Rhythm. First and second heart sounds normal. No murmurs, rubs or gallops. Abdominal exam reveals normal bowel sounds, no masses, no organomegaly and no aortic enlargement. Extremities are nonedematous and both femoral and pedal pulses are normal. 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 - Constitutional Vitals: Temp Pulse Resp BP Pulse Ox 97.8 F 66 21 108/66 97 06/12/17 05:50 06/12/17 11:28 06/12/17 10:00 06/12/17 11:28 06/12/17 11:28 General appearance: Present: other (tracheostomy on vent) Results - Labs CBC & Chem 7: 06/12/17 05:10 06/12/17 05:10 Labs: Laboratory Last Values WBC 7.7 K/mm3 (4.5-11.0) 06/12/17 05:10 RBC 4.23 M/mm3 (3.65-5.03) 06/12/17 05:10 Hgb 12.5 gm/dl (11.8-15.2) 06/12/17 05:10 Hct 37.3 % (35.5-45.6) 06/12/17 05:10 MCV 88 fl (84-94) 06/12/17 05:10 MCH 30 pg (28-32) 06/12/17 05:10 MCHC 34 % (32-34) 06/12/17 05:10 RDW 15.5 % (13.2-15.2) H 06/12/17 05:10 Plt Count 227 K/mm3 (140-440) 06/12/17 05:10 Lymph % (Auto) 20.8 % (13.4-35.0) 06/12/17 05:10 [place] % (Auto) 8.2 % (0.0-7.3) H 06/12/17 05:10 Eos % (Auto) 3.3 % (0.0-4.3) 06/12/17 05:10 Baso % (Auto) 0.4 % (0.0-1.8) 06/12/17 05:10 Lymph # 1.6 K/mm3 (1.2-5.4) 06/12/17 05:10 [place] # 0.6 K/mm3 (0.0-0.8) 06/12/17 05:10 Eos # 0.3 K/mm3 (0.0-0.4) 06/12/17 05:10 Baso # 0.0 K/mm3 (0.0-0.1) 06/12/17 05:10 Add Manual Diff Complete 03/30/17 03:50 Total Counted 100 03/30/17 03:50 Seg Neutrophils % 67.3 % (40.0-70.0) 06/12/17 05:10 Seg Neuts % (Manual) 65.0 % (40.0-70.0) 03/30/17 03:50 Band Neutrophils % 17.0 % 03/30/17 03:50 Lymphocytes % (Manual) 7.0 % (13.4-35.0) L 03/30/17 03:50 Reactive Lymphs % (Man) 0 % 03/30/17 03:50 Monocytes % (Manual) 7.0 % (0.0-7.3) 03/30/17 03:50 Eosinophils % (Manual) 0 % (0.0-4.3) 03/30/17 03:50 Basophils % (Manual) 0 % (0.0-1.8) 03/30/17 03:50 Metamyelocytes % 4.0 % 03/30/17 03:50 Myelocytes % 0 % 03/30/17 03:50 Promyelocytes % 0 % 03/30/17 03:50 Blast Cells % 0 % 03/30/17 03:50 Nucleated RBC % Not Reportable 03/30/17 03:50 Seg Neutrophils # 5.1 K/mm3 (1.8-7.7) 06/12/17 05:10 Seg Neutrophils # Man 12.7 K/mm3 (1.8-7.7) H 03/30/17 03:50 Band Neutrophils # 3.3 K/mm3 03/30/17 03:50 Lymphocytes # (Manual) 1.4 K/mm3 (1.2-5.4) 03/30/17 03:50 Abs React Lymphs (Man) 0.0 K/mm3 03/30/17 03:50 Monocytes # (Manual) 1.4 K/mm3 (0.0-0.8) H 03/30/17 03:50 Eosinophils # (Manual) 0.0 K/mm3 (0.0-0.4) 03/30/17 03:50 Basophils # (Manual) 0.0 K/mm3 (0.0-0.1) 03/30/17 03:50 Metamyelocytes # 0.8 K/mm3 03/30/17 03:50 Myelocytes # 0.0 K/mm3 03/30/17 03:50 Promyelocytes # 0.0 K/mm3 03/30/17 03:50 Blast Cells # 0.0 K/mm3 03/30/17 03:50 WBC Morphology Not Reportable 03/30/17 03:50 Hypersegmented Neuts Not Reportable 03/30/17 03:50 Hyposegmented Neuts Not Reportable 03/30/17 03:50 Hypogranular Neuts Not Reportable 03/30/17 03:50 Smudge Cells Not Reportable 03/30/17 03:50 Toxic Granulation Not Reportable 03/30/17 03:50 Toxic Vacuolation Not Reportable 03/30/17 03:50 Dohle Bodies Not Reportable 03/30/17 03:50 Pelger-Huet Anomaly Not Reportable 03/30/17 03:50 Sherry Rods Not Reportable 03/30/17 03:50 Platelet Estimate Appears normal 03/30/17 03:50 Clumped Platelets Not Reportable 03/30/17 03:50 Plt Clumps, EDTA Not Reportable 03/30/17 03:50 Large Platelets Not Reportable 03/30/17 03:50 Giant Platelets Not Reportable 03/30/17 03:50 Platelet Satelliting Not Reportable 03/30/17 03:50 Plt Morphology Comment Not Reportable 03/30/17 03:50 RBC Morphology Not Reportable 03/30/17 03:50 Dimorphic RBCs Not Reportable 03/30/17 03:50 Polychromasia Not Reportable 03/30/17 03:50 Hypochromasia Not Reportable 03/30/17 03:50 Poikilocytosis Not Reportable 03/30/17 03:50 Anisocytosis Few 03/30/17 03:50 Microcytosis Not Reportable 03/30/17 03:50 Macrocytosis Not Reportable 03/30/17 03:50 Spherocytes Not Reportable 03/30/17 03:50 Pappenheimer Bodies Not Reportable 03/30/17 03:50 Sickle Cells Not Reportable 03/30/17 03:50 Target Cells Not Reportable 03/30/17 03:50 Tear Drop Cells Not Reportable 03/30/17 03:50 Ovalocytes Not Reportable 03/30/17 03:50 Helmet Cells Not Reportable 03/30/17 03:50 [place] Bodies Not Reportable 03/30/17 03:50 [place] Rings Not Reportable 03/30/17 03:50 [place] Cells Not Reportable 03/30/17 03:50 Bite Cells Not Reportable 03/30/17 03:50 Crenated Cell Not Reportable 03/30/17 03:50 Elliptocytes Not Reportable 03/30/17 03:50 Acanthocytes (Spur) Not Reportable 03/30/17 03:50 Rouleaux Not Reportable 03/30/17 03:50 Hemoglobin C Crystals Not Reportable 03/30/17 03:50 Schistocytes Not Reportable 03/30/17 03:50 Malaria parasites Not Reportable 03/30/17 03:50 Jermaine Bodies Not Reportable 03/30/17 03:50 Hem Pathologist Commnt No 03/30/17 03:50 PT 14.9 Sec. (12.2-14.9) 04/10/17 04:16 INR 1.11 (0.87-1.13) 04/10/17 04:16 APTT 27.8 Sec. (24.2-36.6) 04/10/17 04:16 Activated Clotting Time 92 (74-137) 03/29/17 17:47 POC ABG pH 7.496 (7.35-7.45) H 06/09/17 18:29 POC ABG pCO2 33.7 (35-45) L 06/09/17 18:29 POC ABG pO2 103 (80-105) 06/09/17 18:29 POC ABG HCO3 26.0 06/09/17 18:29 POC ABG Total CO2 27 06/09/17 18:29 POC ABG O2 Sat 98 06/09/17 18:29 POC ABG Base Excess 3 06/09/17 18:29 FiO2 28 % 06/09/17 18:29 Sodium 141 mmol/L (137-145) 06/12/17 05:10 Potassium 3.7 mmol/L (3.6-5.0) 06/12/17 05:10 Chloride 102.5 mmol/L (98-107) 06/12/17 05:10 Carbon Dioxide 25 mmol/L (22-30) 06/12/17 05:10 Anion Gap 17 mmol/L 06/12/17 05:10 BUN 15 mg/dL (9-20) 06/12/17 05:10 Creatinine 0.3 mg/dL (0.8-1.5) L 06/12/17 05:10 Estimated GFR > 60 ml/min 06/12/17 05:10 BUN/Creatinine Ratio 50 % 06/12/17 05:10 Glucose 134 mg/dL (75-100) H 06/12/17 05:10 POC Glucose 142 (70-105) H 06/12/17 11:37 Calcium 9.5 mg/dL (8.4-10.2) 06/12/17 05:10 Phosphorus 3.50 mg/dL (2.5-4.5) 04/13/17 04:45 Magnesium 1.80 mg/dL (1.7-2.3) 05/01/17 05:30 Total Bilirubin 0.60 mg/dL (0.1-1.2) 05/01/17 05:30 Direct Bilirubin < 0.2 mg/dL (0-0.2) 04/27/17 05:40 Indirect Bilirubin 0.3 mg/dL 04/25/17 04:51 AST 71 units/L (5-40) H 05/01/17 05:30 ALT 125 units/L (7-56) H 05/01/17 05:30 Alkaline Phosphatase 158 units/L (35-129) H 05/01/17 05:30 Total Creatine Kinase 1404 units/L (55-170) H 04/12/17 21:36 CK-MB (CK-2) 8.0 ng/mL (0.0-4.0) H 04/12/17 21:36 CK-MB (CK-2) Rel Index 0.5 (0-4) 04/12/17 21:36 Troponin T 0.767 ng/mL (0.00-0.029) H* 04/12/17 21:36 C-Reactive Protein 21.80 mg/dL (0.00-1.30) H 03/30/17 16:04 Total Protein 6.7 g/dL (6.3-8.2) 05/01/17 05:30 Albumin 2.6 g/dL (3.9-5) L 05/01/17 05:30 Albumin/Globulin Ratio 0.6 % 05/01/17 05:30 Triglycerides 151 mg/dL (2-149) H 04/01/17 04:29 Cholesterol 164 mg/dL (50-199) 03/29/17 19:52 LDL Cholesterol Direct 81 mg/dL (50-130) 03/29/17 19:52 HDL Cholesterol 44 mg/dL (40-59) 03/29/17 19:52 Cholesterol/HDL Ratio 3.72 % 03/29/17 19:52 Urine Color [place] (Yellow) 04/21/17 22:00 Urine Turbidity Clear (Clear) 04/21/17 22:00 Urine pH 5.0 (5.0-7.0) 04/21/17 22:00 Ur Specific [place] 1.029 (1.003-1.030) 04/21/17 22:00 Urine Protein 30 mg/dl mg/dL (Negative) 04/21/17 22:00 Urine Glucose (UA) Neg mg/dL (Negative) 04/21/17 22:00 Urine Ketones Neg mg/dL (Negative) 04/21/17 22:00 Urine Blood Mod (Negative) 04/21/17 22:00 Urine Nitrite Neg (Negative) 04/21/17 22:00 Urine Bilirubin Neg (Negative) 04/21/17 22:00 Urine Urobilinogen 4.0 mg/dL (<2.0) 04/21/17 22:00 Ur Leukocyte Esterase Neg (Negative) 04/21/17 22:00 Urine WBC (Auto) 10.0 /HPF (0.0-6.0) H 04/21/17 22:00 Urine RBC (Auto) 44.0 /HPF (0.0-6.0) 04/21/17 22:00 U Epithel Cells (Auto) < 1.0 /HPF (0-13.0) 04/21/17 22:00 Amorphous Crystals 1+ 03/30/17 09:45 Urine Mucus 3+ /HPF 04/21/17 22:00 Urine Opiates Screen Presumptive negative 03/30/17 09:45 Urine Methadone Screen Presumptive negative 03/30/17 09:45 Ur Barbiturates Screen Presumptive negative 03/30/17 09:45 Ur Phencyclidine Scrn Presumptive negative 03/30/17 09:45 Ur Amphetamines Screen Presumptive positive 03/30/17 09:45 U Benzodiazepines Scrn Presumptive positive 03/30/17 09:45 Urine Cocaine Screen Presumptive negative 03/30/17 09:45 U Marijuana (THC) Screen Presumptive negative 03/30/17 09:45 Drugs of Abuse Note Disclamer 03/30/17 09:45 Miscellaneous Test Flexitest 1 H 04/25/17 07:07 Blood Type O POSITIVE 03/29/17 11:35 Antibody Screen Negative 03/29/17 11:35
--- NOTE | 2017-06-12 19:03 | Progress Note ---
Assessment and Plan Imp: 1. s/p CP arrest 2. Anoxic enceph. 3. Acute respiratory failure, hypoxia 4. s/p Trach/PEG 5. STEMI/ICMP Rec: 1. Stable on Tpiece; will monitor 2. D/c planning Plan of care reviewed with sister at bedside, she understands/agrees; explained he is not likely to come off vent Subjective Date of service: 06/12/17 Principal diagnosis: coma,ARV,s/p arrest,ARF MV Interval history: No events. Eyes open but unresponsive. Cannot give history. On Tpiece. Active Medications Albuterol (Proventil) 2.5 mg IH Q3HRT PRN PRN Reason: Shortness Of Breath Last Admin: 04/13/17 21:25 Dose: 2.5 mg Amiodarone HCl (Cordarone) 200 mg PO BID [facility] Last Admin: 06/12/17 10:04 Dose: 200 mg Lipase/Protease/Amylase (Pancreaze Dr 10,500 Unit) 1 each FEEDTUBE PRN PRN PRN Reason: For Clogged Feeding Tube Apixaban (Eliquis) 5 mg PO Q12HR [facility]; Protocol Last Admin: 06/12/17 10:03 Dose: 5 mg Aspirin (Aspirin) 325 mg PO QDAY [facility] Last Admin: 06/12/17 10:03 Dose: 325 mg Atorvastatin Calcium (Lipitor) 20 mg PO QHS [facility] Last Admin: 06/11/17 22:35 Dose: 20 mg Clopidogrel Bisulfate (Plavix) 75 mg PO QDAY [facility] Last Admin: 06/12/17 10:03 Dose: 75 mg Dextrose (D50w (25gm) Syringe) 50 ml IV PRN PRN PRN Reason: Hypoglycemia Hydrophilic Ointment (Vaseline Lip Therapy) 1 applic TP Q2HR PRN PRN Reason: Dry Lips Last Admin: 05/01/17 00:35 Dose: 1 applic Lisinopril (Zestril) 2.5 mg PO QDAY [facility] Last Admin: 06/12/17 10:05 Dose: Not Given Metoprolol Tartrate (Lopressor) 2.5 mg IV Q4HR PRN PRN Reason: HR>130 Last Admin: 04/09/17 19:41 Dose: 2.5 mg Metoprolol Tartrate (Lopressor) 12.5 mg PO BID [facility] Last Admin: 06/12/17 10:04 Dose: Not Given Multi-Ingred Cream/Lotion/Oil/Oint (Artificial Tears Ophth Oint) 1 applic OU Q4HR PRN PRN Reason: Dry Eye(s) Last Admin: 03/31/17 22:51 Dose: 1 applic Pantoprazole (Protonix) 40 mg FEEDTUBE DAILY [facility] Last Admin: 06/12/17 10:04 Dose: 40 mg Scopolamine (Transderm-Scop) 1 each TD Q3D [facility] Last Admin: 06/10/17 15:44 Dose: 1 each Simple Syrup (Simple Syrup) 15 ml FEEDTUBE PRN PRN PRN Reason: Hypoglycemia Simple Syrup (Simple Syrup) 30 ml FEEDTUBE PRN PRN PRN Reason: Hypoglycemia Sodium Bicarbonate (Sodium Bicarbonate) 325 mg FEEDTUBE PRN PRN PRN Reason: For Clogged Feeding Tube Objective Vital Signs - 12hr 06/12/17 06/12/17 06/12/17 08:21 09:10 10:00 Pulse Rate 66 69 Pulse Rate [ 76 Apical] Respiratory 21 Rate Blood Pressure 100/60 O2 Sat by Pulse 97 97 Oximetry O2 Sat by Pulse 97 Oximetry [ Assessment] 06/12/17 06/12/17 06/12/17 10:04 10:05 11:28 Pulse Rate 66 66 66 Pulse Rate [ Apical] Respiratory Rate Blood Pressure 100/60 100/60 108/66 O2 Sat by Pulse 97 Oximetry O2 Sat by Pulse Oximetry [ Assessment] 06/12/17 17:20 Pulse Rate Pulse Rate [ Apical] Respiratory Rate Blood Pressure O2 Sat by Pulse Oximetry O2 Sat by Pulse 98 Oximetry [ Assessment] Constitutional: no acute distress, other (stuporous, no changes) Eyes: non-icteric ENT: oropharynx moist Neck: supple, other (trach) Effort: normal Ascultation: Bilateral: clear Percussion: Bilateral: not dull Cardiovascular: regular rate and rhythm Gastrointestinal: normoactive bowel sounds, soft, non-tender, non-distended Integumentary: normal Extremities: no cyanosis, no edema, pink and warm Neurologic: other (no change) Psychiatric: other (eyes open spontaneously but does not follow any voice commands, ) CBC and BMP: 06/12/17 05:10 06/12/17 05:10 ABG, PT/INR, D-dimer: ABG POC ABG pH 7.496 (7.35-7.45) H 06/09/17 18:29 POC ABG pCO2 33.7 (35-45) L 06/09/17 18:29 POC ABG pO2 103 (80-105) 06/09/17 18:29 POC ABG HCO3 26.0 06/09/17 18:29 POC ABG Total CO2 27 06/09/17 18:29 POC ABG O2 Sat 98 06/09/17 18:29 PT/INR, D-dimer PT 14.9 Sec. (12.2-14.9) 04/10/17 04:16 INR 1.11 (0.87-1.13) 04/10/17 04:16 Abnormal lab findings: Abnormal Labs 03/29/17 03/29/17 03/29/17 11:35 11:35 11:40 WBC RBC Hgb Hct MCV 98 H MCH 33 H RDW Plt Count Lymph % (Auto) [place] % (Auto) Eos % (Auto) Baso % (Auto) Lymph # Baso # Seg Neutrophils % Lymphocytes % (Manual) Monocytes % (Manual) 9.0 H Nucleated RBC % 1.0 H Seg Neutrophils # Seg Neutrophils # Man Monocytes # (Manual) 0.9 H PT 15.8 H INR 1.20 H Activated Clotting Time POC ABG pH POC ABG pCO2 POC ABG pO2 Sodium Potassium 2.7 L* Chloride 95.3 L Carbon Dioxide 17 L BUN Creatinine Glucose 435 H POC Glucose Calcium Magnesium Direct Bilirubin AST ALT Alkaline Phosphatase Total Creatine Kinase CK-MB (CK-2) CK-MB (CK-2) Rel Index Troponin T C-Reactive Protein Total Protein 6.1 L Albumin 3.5 L Triglycerides Ur Specific [place] Urine WBC (Auto) Miscellaneous Test 03/29/17 03/29/17 03/29/17 12:34 13:10 13:25 WBC RBC Hgb Hct MCV MCH RDW Plt Count Lymph % (Auto) [place] % (Auto) Eos % (Auto) Baso % (Auto) Lymph # Baso # Seg Neutrophils % Lymphocytes % (Manual) Monocytes % (Manual) Nucleated RBC % Seg Neutrophils # Seg Neutrophils # Man Monocytes # (Manual) PT INR Activated Clotting Time 142 H 169 H 175 H POC ABG pH POC ABG pCO2 POC ABG pO2 Sodium Potassium Chloride Carbon Dioxide BUN Creatinine Glucose POC Glucose Calcium Magnesium Direct Bilirubin AST ALT Alkaline Phosphatase Total Creatine Kinase CK-MB (CK-2) CK-MB (CK-2) Rel Index Troponin T C-Reactive Protein Total Protein Albumin Triglycerides Ur Specific [place] Urine WBC (Auto) Miscellaneous Test 03/29/17 03/29/17 03/29/17 14:50 15:18 19:52 WBC RBC Hgb Hct MCV MCH RDW Plt Count Lymph % (Auto) [place] % (Auto) Eos % (Auto) Baso % (Auto) Lymph # Baso # Seg Neutrophils % Lymphocytes % (Manual) Monocytes % (Manual) Nucleated RBC % Seg Neutrophils # Seg Neutrophils # Man Monocytes # (Manual) PT INR Activated Clotting Time 175 H POC ABG pH 7.293 L POC ABG pCO2 POC ABG pO2 602 H Sodium Potassium Chloride Carbon Dioxide BUN Creatinine Glucose POC Glucose Calcium Magnesium Direct Bilirubin AST ALT Alkaline Phosphatase Total Creatine Kinase 7263 H CK-MB (CK-2) > 300.0 H CK-MB (CK-2) Rel Index 4.1 H Troponin T 8.080 H* D C-Reactive Protein Total Protein Albumin Triglycerides 195 H Ur Specific [place] Urine WBC (Auto) Miscellaneous Test 03/30/17 03/30/17 03/30/17 03:50 03:50 06:19 WBC 19.5 H RBC Hgb Hct MCV MCH RDW Plt Count Lymph % (Auto) [place] % (Auto) Eos % (Auto) Baso % (Auto) Lymph # Baso # Seg Neutrophils % Lymphocytes % (Manual) 7.0 L Monocytes % (Manual) Nucleated RBC % Seg Neutrophils # Seg Neutrophils # Man 12.7 H Monocytes # (Manual) 1.4 H PT INR Activated Clotting Time POC ABG pH POC ABG pCO2 28.2 L POC ABG pO2 108 H Sodium Potassium Chloride 108.9 H Carbon Dioxide 15 L BUN 25 H Creatinine Glucose 158 H POC Glucose Calcium 8.1 L Magnesium Direct Bilirubin AST ALT Alkaline Phosphatase Total Creatine Kinase 7963 H CK-MB (CK-2) > 300.0 H CK-MB (CK-2) Rel Index Troponin T 6.850 H* C-Reactive Protein Total Protein Albumin Triglycerides Ur Specific [place] Urine WBC (Auto) Miscellaneous Test 03/30/17 03/30/17 03/31/17 09:45 16:04 02:19 WBC RBC Hgb Hct MCV MCH RDW Plt Count Lymph % (Auto) [place] % (Auto) Eos % (Auto) Baso % (Auto) Lymph # Baso # Seg Neutrophils % Lymphocytes % (Manual) Monocytes % (Manual) Nucleated RBC % Seg Neutrophils # Seg Neutrophils # Man Monocytes # (Manual) PT INR Activated Clotting Time POC ABG pH POC ABG pCO2 POC ABG pO2 Sodium Potassium Chloride Carbon Dioxide BUN Creatinine Glucose POC Glucose 137 H Calcium Magnesium Direct Bilirubin AST ALT Alkaline Phosphatase Total Creatine Kinase CK-MB (CK-2) CK-MB (CK-2) Rel Index Troponin T C-Reactive Protein 21.80 H Total Protein Albumin Triglycerides Ur Specific [place] 1.031 H Urine WBC (Auto) Miscellaneous Test 03/31/17 03/31/17 03/31/17 03:57 06:54 09:22 WBC RBC Hgb Hct MCV MCH RDW Plt Count Lymph % (Auto) [place] % (Auto) Eos % (Auto) Baso % (Auto) Lymph # Baso # Seg Neutrophils % Lymphocytes % (Manual) Monocytes % (Manual) Nucleated RBC % Seg Neutrophils # Seg Neutrophils # Man Monocytes # (Manual) PT INR Activated Clotting Time POC ABG pH 7.475 H POC ABG pCO2 25.4 L POC ABG pO2 62 L Sodium Potassium Chloride Carbon Dioxide 19 L BUN 22 H Creatinine 0.6 L Glucose 148 H POC Glucose 143 H Calcium 8.3 L Magnesium Direct Bilirubin AST ALT Alkaline Phosphatase Total Creatine Kinase CK-MB (CK-2) CK-MB (CK-2) Rel Index Troponin T C-Reactive Protein Total Protein Albumin Triglycerides Ur Specific [place] Urine WBC (Auto) Miscellaneous Test 03/31/17 03/31/17 03/31/17 11:40 17:47 23:38 WBC RBC Hgb Hct MCV MCH RDW Plt Count Lymph % (Auto) [place] % (Auto) Eos % (Auto) Baso % (Auto) Lymph # Baso # Seg Neutrophils % Lymphocytes % (Manual) Monocytes % (Manual) Nucleated RBC % Seg Neutrophils # Seg Neutrophils # Man Monocytes # (Manual) PT INR Activated Clotting Time POC ABG pH POC ABG pCO2 POC ABG pO2 Sodium Potassium Chloride Carbon Dioxide BUN Creatinine Glucose POC Glucose 127 H 137 H 148 H Calcium Magnesium Direct Bilirubin AST ALT Alkaline Phosphatase Total Creatine Kinase CK-MB (CK-2) CK-MB (CK-2) Rel Index Troponin T C-Reactive Protein Total Protein Albumin Triglycerides Ur Specific [place] Urine WBC (Auto) Miscellaneous Test 04/01/17 04/01/17 04/01/17 04:29 05:01 11:54 WBC RBC Hgb Hct MCV MCH RDW Plt Count Lymph % (Auto) [place] % (Auto) Eos % (Auto) Baso % (Auto) Lymph # Baso # Seg Neutrophils % Lymphocytes % (Manual) Monocytes % (Manual) Nucleated RBC % Seg Neutrophils # Seg Neutrophils # Man Monocytes # (Manual) PT INR Activated Clotting Time POC ABG pH 7.513 H POC ABG pCO2 22.1 L POC ABG pO2 64 L Sodium Potassium Chloride Carbon Dioxide BUN Creatinine Glucose POC Glucose 121 H Calcium Magnesium Direct Bilirubin AST ALT Alkaline Phosphatase Total Creatine Kinase CK-MB (CK-2) CK-MB (CK-2) Rel Index Troponin T C-Reactive Protein Total Protein Albumin Triglycerides 151 H Ur Specific [place] Urine WBC (Auto) Miscellaneous Test 04/01/17 04/02/17 04/02/17 18:17 00:11 04:52 WBC RBC Hgb Hct MCV MCH RDW Plt Count Lymph % (Auto) [place] % (Auto) Eos % (Auto) Baso % (Auto) Lymph # Baso # Seg Neutrophils % Lymphocytes % (Manual) Monocytes % (Manual) Nucleated RBC % Seg Neutrophils # Seg Neutrophils # Man Monocytes # (Manual) PT INR Activated Clotting Time POC ABG pH 7.524 H POC ABG pCO2 25.5 L POC ABG pO2 66 L Sodium Potassium Chloride Carbon Dioxide BUN Creatinine Glucose POC Glucose 117 H 122 H Calcium Magnesium Direct Bilirubin AST ALT Alkaline Phosphatase Total Creatine Kinase CK-MB (CK-2) CK-MB (CK-2) Rel Index Troponin T C-Reactive Protein Total Protein Albumin Triglycerides Ur Specific [place] Urine WBC (Auto) Miscellaneous Test 04/02/17 04/02/17 04/02/17 05:18 10:41 12:19 WBC RBC Hgb Hct MCV MCH RDW Plt Count Lymph % (Auto) [place] % (Auto) Eos % (Auto) Baso % (Auto) Lymph # Baso # Seg Neutrophils % Lymphocytes % (Manual) Monocytes % (Manual) Nucleated RBC % Seg Neutrophils # Seg Neutrophils # Man Monocytes # (Manual) PT INR Activated Clotting Time POC ABG pH 7.534 H POC ABG pCO2 27.4 L POC ABG pO2 Sodium Potassium Chloride Carbon Dioxide BUN Creatinine Glucose POC Glucose 132 H 129 H Calcium Magnesium Direct Bilirubin AST ALT Alkaline Phosphatase Total Creatine Kinase CK-MB (CK-2) CK-MB (CK-2) Rel Index Troponin T C-Reactive Protein Total Protein Albumin Triglycerides Ur Specific [place] Urine WBC (Auto) Miscellaneous Test 04/02/17 04/03/17 04/03/17 18:05 00:08 05:09 WBC RBC Hgb Hct MCV MCH RDW Plt Count Lymph % (Auto) [place] % (Auto) Eos % (Auto) Baso % (Auto) Lymph # Baso # Seg Neutrophils % Lymphocytes % (Manual) Monocytes % (Manual) Nucleated RBC % Seg Neutrophils # Seg Neutrophils # Man Monocytes # (Manual) PT INR Activated Clotting Time POC ABG pH 7.455 H POC ABG pCO2 33.2 L POC ABG pO2 120 H Sodium Potassium Chloride Carbon Dioxide BUN Creatinine Glucose POC Glucose 136 H 128 H Calcium Magnesium Direct Bilirubin AST ALT Alkaline Phosphatase Total Creatine Kinase CK-MB (CK-2) CK-MB (CK-2) Rel Index Troponin T C-Reactive Protein Total Protein Albumin Triglycerides Ur Specific [place] Urine WBC (Auto) Miscellaneous Test 04/03/17 04/03/17 04/03/17 06:32 11:54 12:16 WBC 11.9 H RBC Hgb Hct MCV MCH RDW Plt Count 125 L Lymph % (Auto) 4.8 L [place] % (Auto) Eos % (Auto) Baso % (Auto) Lymph # 0.6 L Baso # Seg Neutrophils % 86.7 H Lymphocytes % (Manual) Monocytes % (Manual) Nucleated RBC % Seg Neutrophils # 10.3 H Seg Neutrophils # Man Monocytes # (Manual) PT INR Activated Clotting Time POC ABG pH POC ABG pCO2 POC ABG pO2 Sodium Potassium Chloride Carbon Dioxide BUN Creatinine Glucose POC Glucose 138 H 143 H Calcium Magnesium Direct Bilirubin AST ALT Alkaline Phosphatase Total Creatine Kinase CK-MB (CK-2) CK-MB (CK-2) Rel Index Troponin T C-Reactive Protein Total Protein Albumin Triglycerides Ur Specific [place] Urine WBC (Auto) Miscellaneous Test 04/03/17 04/03/17 04/04/17 17:33 23:59 04:34 WBC RBC Hgb Hct MCV MCH RDW Plt Count Lymph % (Auto) [place] % (Auto) Eos % (Auto) Baso % (Auto) Lymph # Baso # Seg Neutrophils % Lymphocytes % (Manual) Monocytes % (Manual) Nucleated RBC % Seg Neutrophils # Seg Neutrophils # Man Monocytes # (Manual) PT INR Activated Clotting Time POC ABG pH 7.457 H POC ABG pCO2 29.8 L POC ABG pO2 76 L Sodium Potassium Chloride Carbon Dioxide BUN Creatinine Glucose POC Glucose 130 H 155 H Calcium Magnesium Direct Bilirubin AST ALT Alkaline Phosphatase Total Creatine Kinase CK-MB (CK-2) CK-MB (CK-2) Rel Index Troponin T C-Reactive Protein Total Protein Albumin Triglycerides Ur Specific [place] Urine WBC (Auto) Miscellaneous Test 04/04/17 04/04/17 04/04/17 05:27 12:22 18:18 WBC RBC Hgb Hct MCV MCH RDW Plt Count Lymph % (Auto) [place] % (Auto) Eos % (Auto) Baso % (Auto) Lymph # Baso # Seg Neutrophils % Lymphocytes % (Manual) Monocytes % (Manual) Nucleated RBC % Seg Neutrophils # Seg Neutrophils # Man Monocytes # (Manual) PT INR Activated Clotting Time POC ABG pH POC ABG pCO2 POC ABG pO2 Sodium Potassium Chloride Carbon Dioxide BUN Creatinine Glucose POC Glucose 164 H 146 H 130 H Calcium Magnesium Direct Bilirubin AST ALT Alkaline Phosphatase Total Creatine Kinase CK-MB (CK-2) CK-MB (CK-2) Rel Index Troponin T C-Reactive Protein Total Protein Albumin Triglycerides Ur Specific [place] Urine WBC (Auto) Miscellaneous Test 04/05/17 04/05/17 04/05/17 04:43 05:28 11:36 WBC RBC Hgb Hct MCV MCH RDW Plt Count Lymph % (Auto) [place] % (Auto) Eos % (Auto) Baso % (Auto) Lymph # Baso # Seg Neutrophils % Lymphocytes % (Manual) Monocytes % (Manual) Nucleated RBC % Seg Neutrophils # Seg Neutrophils # Man Monocytes # (Manual) PT INR Activated Clotting Time POC ABG pH 7.479 H POC ABG pCO2 33.5 L POC ABG pO2 76 L Sodium Potassium Chloride Carbon Dioxide BUN Creatinine Glucose POC Glucose 145 H 136 H Calcium Magnesium Direct Bilirubin AST ALT Alkaline Phosphatase Total Creatine Kinase CK-MB (CK-2) CK-MB (CK-2) Rel Index Troponin T C-Reactive Protein Total Protein Albumin Triglycerides Ur Specific [place] Urine WBC (Auto) Miscellaneous Test 04/05/17 04/06/17 04/06/17 17:58 00:16 05:26 WBC RBC Hgb Hct MCV MCH RDW Plt Count Lymph % (Auto) [place] % (Auto) Eos % (Auto) Baso % (Auto) Lymph # Baso # Seg Neutrophils % Lymphocytes % (Manual) Monocytes % (Manual) Nucleated RBC % Seg Neutrophils # Seg Neutrophils # Man Monocytes # (Manual) PT INR Activated Clotting Time POC ABG pH POC ABG pCO2 POC ABG pO2 Sodium Potassium Chloride Carbon Dioxide BUN Creatinine Glucose POC Glucose 130 H 159 H 146 H Calcium Magnesium Direct Bilirubin AST ALT Alkaline Phosphatase Total Creatine Kinase CK-MB (CK-2) CK-MB (CK-2) Rel Index Troponin T C-Reactive Protein Total Protein Albumin Triglycerides Ur Specific [place] Urine WBC (Auto) Miscellaneous Test 04/06/17 04/06/17 04/07/17 13:11 16:54 11:45 WBC RBC Hgb Hct MCV MCH RDW Plt Count Lymph % (Auto) [place] % (Auto) Eos % (Auto) Baso % (Auto) Lymph # Baso # Seg Neutrophils % Lymphocytes % (Manual) Monocytes % (Manual) Nucleated RBC % Seg Neutrophils # Seg Neutrophils # Man Monocytes # (Manual) PT INR Activated Clotting Time POC ABG pH 7.517 H POC ABG pCO2 32.1 L POC ABG pO2 Sodium Potassium Chloride Carbon Dioxide BUN Creatinine Glucose POC Glucose 132 H 123 H Calcium Magnesium Direct Bilirubin AST ALT Alkaline Phosphatase Total Creatine Kinase CK-MB (CK-2) CK-MB (CK-2) Rel Index Troponin T C-Reactive Protein Total Protein Albumin Triglycerides Ur Specific [place] Urine WBC (Auto) Miscellaneous Test 04/07/17 04/07/17 04/07/17 12:51 17:40 23:55 WBC RBC Hgb Hct MCV MCH RDW Plt Count Lymph % (Auto) [place] % (Auto) Eos % (Auto) Baso % (Auto) Lymph # Baso # Seg Neutrophils % Lymphocytes % (Manual) Monocytes % (Manual) Nucleated RBC % Seg Neutrophils # Seg Neutrophils # Man Monocytes # (Manual) PT INR Activated Clotting Time POC ABG pH POC ABG pCO2 POC ABG pO2 Sodium Potassium Chloride Carbon Dioxide BUN Creatinine Glucose POC Glucose 138 H 154 H 143 H Calcium Magnesium Direct Bilirubin AST ALT Alkaline Phosphatase Total Creatine Kinase CK-MB (CK-2) CK-MB (CK-2) Rel Index Troponin T C-Reactive Protein Total Protein Albumin Triglycerides Ur Specific [place] Urine WBC (Auto) Miscellaneous Test 04/08/17 04/08/17 04/08/17 05:27 11:14 17:44 WBC RBC Hgb Hct MCV MCH RDW Plt Count Lymph % (Auto) [place] % (Auto) Eos % (Auto) Baso % (Auto) Lymph # Baso # Seg Neutrophils % Lymphocytes % (Manual) Monocytes % (Manual) Nucleated RBC % Seg Neutrophils # Seg Neutrophils # Man Monocytes # (Manual) PT INR Activated Clotting Time POC ABG pH POC ABG pCO2 POC ABG pO2 Sodium Potassium Chloride Carbon Dioxide BUN Creatinine Glucose POC Glucose 142 H 153 H 129 H Calcium Magnesium Direct Bilirubin AST ALT Alkaline Phosphatase Total Creatine Kinase CK-MB (CK-2) CK-MB (CK-2) Rel Index Troponin T C-Reactive Protein Total Protein Albumin Triglycerides Ur Specific [place] Urine WBC (Auto) Miscellaneous Test 04/09/17 04/09/17 04/09/17 08:20 11:21 17:37 WBC RBC Hgb Hct MCV MCH RDW Plt Count Lymph % (Auto) [place] % (Auto) Eos % (Auto) Baso % (Auto) Lymph # Baso # Seg Neutrophils % Lymphocytes % (Manual) Monocytes % (Manual) Nucleated RBC % Seg Neutrophils # Seg Neutrophils # Man Monocytes # (Manual) PT INR Activated Clotting Time POC ABG pH POC ABG pCO2 POC ABG pO2 Sodium 147 H Potassium Chloride 108.8 H Carbon Dioxide BUN 39 H Creatinine 0.5 L Glucose 138 H POC Glucose 152 H 109 H Calcium Magnesium Direct Bilirubin AST ALT Alkaline Phosphatase Total Creatine Kinase CK-MB (CK-2) CK-MB (CK-2) Rel Index Troponin T C-Reactive Protein Total Protein Albumin Triglycerides Ur Specific [place] Urine WBC (Auto) Miscellaneous Test 04/10/17 04/10/17 04/10/17 00:13 04:16 04:16 WBC RBC Hgb 11.5 L Hct MCV 96 H MCH RDW Plt Count 103 L Lymph % (Auto) 11.1 L [place] % (Auto) Eos % (Auto) Baso % (Auto) Lymph # Baso # Seg Neutrophils % 81.5 H Lymphocytes % (Manual) Monocytes % (Manual) Nucleated RBC % Seg Neutrophils # 8.8 H Seg Neutrophils # Man Monocytes # (Manual) PT INR Activated Clotting Time POC ABG pH POC ABG pCO2 POC ABG pO2 Sodium 148 H Potassium Chloride 109.0 H Carbon Dioxide BUN 36 H Creatinine 0.5 L Glucose 131 H POC Glucose 127 H Calcium 8.1 L Magnesium 2.40 H Direct Bilirubin AST 206 H ALT 228 H Alkaline Phosphatase 178 H Total Creatine Kinase CK-MB (CK-2) CK-MB (CK-2) Rel Index Troponin T C-Reactive Protein Total Protein Albumin 2.8 L Triglycerides Ur Specific [place] Urine WBC (Auto) Miscellaneous Test 04/10/17 04/10/17 04/10/17 06:01 11:57 18:27 WBC RBC Hgb Hct MCV MCH RDW Plt Count Lymph % (Auto) [place] % (Auto) Eos % (Auto) Baso % (Auto) Lymph # Baso # Seg Neutrophils % Lymphocytes % (Manual) Monocytes % (Manual) Nucleated RBC % Seg Neutrophils # Seg Neutrophils # Man Monocytes # (Manual) PT INR Activated Clotting Time POC ABG pH POC ABG pCO2 POC ABG pO2 Sodium Potassium Chloride Carbon Dioxide BUN Creatinine Glucose POC Glucose 108 H 154 H 130 H Calcium Magnesium Direct Bilirubin AST ALT Alkaline Phosphatase Total Creatine Kinase CK-MB (CK-2) CK-MB (CK-2) Rel Index Troponin T C-Reactive Protein Total Protein Albumin Triglycerides Ur Specific [place] Urine WBC (Auto) Miscellaneous Test 04/11/17 04/11/17 04/12/17 12:25 17:10 00:22 WBC RBC Hgb Hct MCV MCH RDW Plt Count Lymph % (Auto) [place] % (Auto) Eos % (Auto) Baso % (Auto) Lymph # Baso # Seg Neutrophils % Lymphocytes % (Manual) Monocytes % (Manual) Nucleated RBC % Seg Neutrophils # Seg Neutrophils # Man Monocytes # (Manual) PT INR Activated Clotting Time POC ABG pH POC ABG pCO2 POC ABG pO2 Sodium Potassium Chloride Carbon Dioxide BUN Creatinine Glucose POC Glucose 107 H 129 H 128 H Calcium Magnesium Direct Bilirubin AST ALT Alkaline Phosphatase Total Creatine Kinase CK-MB (CK-2) CK-MB (CK-2) Rel Index Troponin T C-Reactive Protein Total Protein Albumin Triglycerides Ur Specific [place] Urine WBC (Auto) Miscellaneous Test 04/12/17 04/12/17 04/12/17 05:00 11:57 17:47 WBC RBC Hgb Hct MCV MCH RDW Plt Count Lymph % (Auto) [place] % (Auto) Eos % (Auto) Baso % (Auto) Lymph # Baso # Seg Neutrophils % Lymphocytes % (Manual) Monocytes % (Manual) Nucleated RBC % Seg Neutrophils # Seg Neutrophils # Man Monocytes # (Manual) PT INR Activated Clotting Time POC ABG pH POC ABG pCO2 POC ABG pO2 Sodium Potassium Chloride Carbon Dioxide BUN Creatinine Glucose POC Glucose 140 H 142 H Calcium Magnesium Direct Bilirubin AST 158 H ALT 184 H Alkaline Phosphatase 170 H Total Creatine Kinase CK-MB (CK-2) CK-MB (CK-2) Rel Index Troponin T C-Reactive Protein Total Protein Albumin 2.8 L Triglycerides Ur Specific [place] Urine WBC (Auto) Miscellaneous Test 04/12/17 04/12/17 04/13/17 21:36 21:36 01:37 WBC RBC Hgb Hct MCV MCH RDW Plt Count Lymph % (Auto) [place] % (Auto) Eos % (Auto) Baso % (Auto) Lymph # Baso # Seg Neutrophils % Lymphocytes % (Manual) Monocytes % (Manual) Nucleated RBC % Seg Neutrophils # Seg Neutrophils # Man Monocytes # (Manual) PT INR Activated Clotting Time POC ABG pH POC ABG pCO2 POC ABG pO2 Sodium Potassium Chloride Carbon Dioxide BUN Creatinine Glucose POC Glucose 126 H Calcium Magnesium Direct Bilirubin AST ALT Alkaline Phosphatase Total Creatine Kinase 1404 H CK-MB (CK-2) 8.0 H CK-MB (CK-2) Rel Index Troponin T 0.767 H* C-Reactive Protein Total Protein Albumin Triglycerides Ur Specific [place] Urine WBC (Auto) Miscellaneous Test 04/13/17 04/13/17 04/13/17 04:45 04:52 12:17 WBC RBC Hgb Hct MCV MCH RDW Plt Count Lymph % (Auto) [place] % (Auto) Eos % (Auto) Baso % (Auto) Lymph # Baso # Seg Neutrophils % Lymphocytes % (Manual) Monocytes % (Manual) Nucleated RBC % Seg Neutrophils # Seg Neutrophils # Man Monocytes # (Manual) PT INR Activated Clotting Time POC ABG pH POC ABG pCO2 POC ABG pO2 Sodium 148 H Potassium Chloride 112.8 H Carbon Dioxide BUN 33 H Creatinine 0.4 L Glucose 121 H POC Glucose 126 H 149 H Calcium Magnesium Direct Bilirubin AST 160 H ALT 189 H Alkaline Phosphatase 166 H Total Creatine Kinase CK-MB (CK-2) CK-MB (CK-2) Rel Index Troponin T C-Reactive Protein Total Protein Albumin 2.6 L Triglycerides Ur Specific [place] Urine WBC (Auto) Miscellaneous Test 04/13/17 04/14/17 04/14/17 17:45 00:20 00:45 WBC RBC Hgb Hct MCV MCH RDW Plt Count Lymph % (Auto) [place] % (Auto) Eos % (Auto) Baso % (Auto) Lymph # Baso # Seg Neutrophils % Lymphocytes % (Manual) Monocytes % (Manual) Nucleated RBC % Seg Neutrophils # Seg Neutrophils # Man Monocytes # (Manual) PT INR Activated Clotting Time POC ABG pH POC ABG pCO2 POC ABG pO2 Sodium Potassium Chloride Carbon Dioxide BUN Creatinine Glucose POC Glucose 130 H 144 H 144 H Calcium Magnesium Direct Bilirubin AST ALT Alkaline Phosphatase Total Creatine Kinase CK-MB (CK-2) CK-MB (CK-2) Rel Index Troponin T C-Reactive Protein Total Protein Albumin Triglycerides Ur Specific [place] Urine WBC (Auto) Miscellaneous Test 04/14/17 04/14/17 04/14/17 05:40 11:06 11:31 WBC RBC Hgb Hct MCV MCH RDW Plt Count Lymph % (Auto) [place] % (Auto) Eos % (Auto) Baso % (Auto) Lymph # Baso # Seg Neutrophils % Lymphocytes % (Manual) Monocytes % (Manual) Nucleated RBC % Seg Neutrophils # Seg Neutrophils # Man Monocytes # (Manual) PT INR Activated Clotting Time POC ABG pH POC ABG pCO2 POC ABG pO2 Sodium Potassium Chloride Carbon Dioxide BUN Creatinine Glucose POC Glucose 139 H 123 H Calcium Magnesium Direct Bilirubin AST ALT Alkaline Phosphatase Total Creatine Kinase CK-MB (CK-2) CK-MB (CK-2) Rel Index Troponin T C-Reactive Protein Total Protein Albumin Triglycerides Ur Specific [place] 1.033 H Urine WBC (Auto) > 182.0 H Miscellaneous Test 04/14/17 04/14/17 04/15/17 18:00 23:52 05:15 WBC 12.5 H RBC 3.38 L Hgb 10.6 L Hct 32.7 L MCV 97 H MCH RDW Plt Count 107 L Lymph % (Auto) 8.7 L [place] % (Auto) Eos % (Auto) Baso % (Auto) Lymph # 1.1 L Baso # Seg Neutrophils % 86.1 H Lymphocytes % (Manual) Monocytes % (Manual) Nucleated RBC % Seg Neutrophils # 10.7 H Seg Neutrophils # Man Monocytes # (Manual) PT INR Activated Clotting Time POC ABG pH POC ABG pCO2 POC ABG pO2 Sodium Potassium Chloride Carbon Dioxide BUN Creatinine Glucose POC Glucose 133 H 133 H Calcium Magnesium Direct Bilirubin AST ALT Alkaline Phosphatase Total Creatine Kinase CK-MB (CK-2) CK-MB (CK-2) Rel Index Troponin T C-Reactive Protein Total Protein Albumin Triglycerides Ur Specific [place] Urine WBC (Auto) Miscellaneous Test 04/15/17 04/15/17 04/15/17 05:15 05:25 11:50 WBC RBC Hgb Hct MCV MCH RDW Plt Count Lymph % (Auto) [place] % (Auto) Eos % (Auto) Baso % (Auto) Lymph # Baso # Seg Neutrophils % Lymphocytes % (Manual) Monocytes % (Manual) Nucleated RBC % Seg Neutrophils # Seg Neutrophils # Man Monocytes # (Manual) PT INR Activated Clotting Time POC ABG pH POC ABG pCO2 POC ABG pO2 Sodium 149 H Potassium 3.5 L Chloride 114.1 H Carbon Dioxide 21 L BUN 29 H Creatinine 0.4 L Glucose 128 H POC Glucose 133 H 107 H Calcium 8.3 L Magnesium Direct Bilirubin 0.4 H AST 149 H ALT 182 H Alkaline Phosphatase 143 H Total Creatine Kinase CK-MB (CK-2) CK-MB (CK-2) Rel Index Troponin T C-Reactive Protein Total Protein Albumin 2.5 L Triglycerides Ur Specific [place] Urine WBC (Auto) Miscellaneous Test 04/15/17 04/16/17 04/16/17 16:55 00:02 03:17 WBC RBC 3.39 L Hgb 10.5 L Hct 32.4 L MCV 96 H MCH RDW Plt Count 106 L Lymph % (Auto) 6.7 L [place] % (Auto) Eos % (Auto) Baso % (Auto) Lymph # 0.6 L Baso # Seg Neutrophils % 86.8 H Lymphocytes % (Manual) Monocytes % (Manual) Nucleated RBC % Seg Neutrophils # 8.2 H Seg Neutrophils # Man Monocytes # (Manual) PT INR Activated Clotting Time POC ABG pH POC ABG pCO2 POC ABG pO2 Sodium Potassium Chloride Carbon Dioxide BUN Creatinine Glucose POC Glucose 146 H 148 H Calcium Magnesium Direct Bilirubin AST ALT Alkaline Phosphatase Total Creatine Kinase CK-MB (CK-2) CK-MB (CK-2) Rel Index Troponin T C-Reactive Protein Total Protein Albumin Triglycerides Ur Specific [place] Urine WBC (Auto) Miscellaneous Test 04/16/17 04/16/17 04/16/17 03:17 05:19 11:13 WBC RBC Hgb Hct MCV MCH RDW Plt Count Lymph % (Auto) [place] % (Auto) Eos % (Auto) Baso % (Auto) Lymph # Baso # Seg Neutrophils % Lymphocytes % (Manual) Monocytes % (Manual) Nucleated RBC % Seg Neutrophils # Seg Neutrophils # Man Monocytes # (Manual) PT INR Activated Clotting Time POC ABG pH POC ABG pCO2 POC ABG pO2 Sodium 149 H Potassium Chloride 111.1 H Carbon Dioxide 20 L BUN 27 H Creatinine 0.3 L Glucose 156 H POC Glucose 171 H 169 H Calcium 8.3 L Magnesium Direct Bilirubin AST ALT Alkaline Phosphatase Total Creatine Kinase CK-MB (CK-2) CK-MB (CK-2) Rel Index Troponin T C-Reactive Protein Total Protein Albumin Triglycerides Ur Specific [place] Urine WBC (Auto) Miscellaneous Test 04/16/17 04/17/17 04/17/17 17:03 00:00 05:09 WBC RBC Hgb Hct MCV MCH RDW Plt Count Lymph % (Auto) [place] % (Auto) Eos % (Auto) Baso % (Auto) Lymph # Baso # Seg Neutrophils % Lymphocytes % (Manual) Monocytes % (Manual) Nucleated RBC % Seg Neutrophils # Seg Neutrophils # Man Monocytes # (Manual) PT INR Activated Clotting Time POC ABG pH POC ABG pCO2 POC ABG pO2 Sodium Potassium Chloride Carbon Dioxide BUN Creatinine Glucose POC Glucose 151 H 165 H 145 H Calcium Magnesium Direct Bilirubin AST ALT Alkaline Phosphatase Total Creatine Kinase CK-MB (CK-2) CK-MB (CK-2) Rel Index Troponin T C-Reactive Protein Total Protein Albumin Triglycerides Ur Specific [place] Urine WBC (Auto) Miscellaneous Test 04/17/17 04/17/17 04/18/17 11:38 17:47 00:01 WBC RBC Hgb Hct MCV MCH RDW Plt Count Lymph % (Auto) [place] % (Auto) Eos % (Auto) Baso % (Auto) Lymph # Baso # Seg Neutrophils % Lymphocytes % (Manual) Monocytes % (Manual) Nucleated RBC % Seg Neutrophils # Seg Neutrophils # Man Monocytes # (Manual) PT INR Activated Clotting Time POC ABG pH POC ABG pCO2 POC ABG pO2 Sodium Potassium Chloride Carbon Dioxide BUN Creatinine Glucose POC Glucose 170 H 161 H 131 H Calcium Magnesium Direct Bilirubin AST ALT Alkaline Phosphatase Total Creatine Kinase CK-MB (CK-2) CK-MB (CK-2) Rel Index Troponin T C-Reactive Protein Total Protein Albumin Triglycerides Ur Specific [place] Urine WBC (Auto) Miscellaneous Test 04/18/17 04/18/17 04/18/17 03:55 03:55 05:30 WBC RBC 3.05 L Hgb 9.8 L Hct 29.0 L MCV 95 H MCH RDW Plt Count 113 L Lymph % (Auto) [place] % (Auto) Eos % (Auto) 5.3 H Baso % (Auto) Lymph # Baso # Seg Neutrophils % 71.5 H Lymphocytes % (Manual) Monocytes % (Manual) Nucleated RBC % Seg Neutrophils # Seg Neutrophils # Man Monocytes # (Manual) PT INR Activated Clotting Time POC ABG pH 7.460 H POC ABG pCO2 30.8 L POC ABG pO2 129 H Sodium Potassium Chloride Carbon Dioxide 21 L BUN 25 H Creatinine 0.4 L Glucose 123 H POC Glucose Calcium 8.3 L Magnesium Direct Bilirubin AST ALT Alkaline Phosphatase Total Creatine Kinase CK-MB (CK-2) CK-MB (CK-2) Rel Index Troponin T C-Reactive Protein Total Protein Albumin Triglycerides Ur Specific [place] Urine WBC (Auto) Miscellaneous Test 04/18/17 04/18/17 04/19/17 17:10 23:40 04:36 WBC RBC 3.21 L Hgb 10.2 L Hct 30.4 L MCV 95 H MCH RDW Plt Count 131 L Lymph % (Auto) 12.1 L [place] % (Auto) Eos % (Auto) 4.7 H Baso % (Auto) 2.4 H Lymph # 0.9 L Baso # 0.2 H Seg Neutrophils % 75.0 H Lymphocytes % (Manual) Monocytes % (Manual) Nucleated RBC % Seg Neutrophils # Seg Neutrophils # Man Monocytes # (Manual) PT INR Activated Clotting Time POC ABG pH POC ABG pCO2 POC ABG pO2 Sodium Potassium Chloride Carbon Dioxide BUN Creatinine Glucose POC Glucose 135 H 157 H Calcium Magnesium Direct Bilirubin AST ALT Alkaline Phosphatase Total Creatine Kinase CK-MB (CK-2) CK-MB (CK-2) Rel Index Troponin T C-Reactive Protein Total Protein Albumin Triglycerides Ur Specific [place] Urine WBC (Auto) Miscellaneous Test 04/19/17 04/19/17 04/19/17 04:36 05:12 06:50 WBC RBC Hgb Hct MCV MCH RDW Plt Count Lymph % (Auto) [place] % (Auto) Eos % (Auto) Baso % (Auto) Lymph # Baso # Seg Neutrophils % Lymphocytes % (Manual) Monocytes % (Manual) Nucleated RBC % Seg Neutrophils # Seg Neutrophils # Man Monocytes # (Manual) PT INR Activated Clotting Time POC ABG pH 7.516 H POC ABG pCO2 28.0 L POC ABG pO2 Sodium Potassium Chloride Carbon Dioxide 21 L BUN 23 H Creatinine 0.2 L Glucose 137 H POC Glucose 131 H Calcium 7.9 L Magnesium Direct Bilirubin AST ALT Alkaline Phosphatase Total Creatine Kinase CK-MB (CK-2) CK-MB (CK-2) Rel Index Troponin T C-Reactive Protein Total Protein Albumin Triglycerides Ur Specific [place] Urine WBC (Auto) Miscellaneous Test 04/19/17 04/19/17 04/20/17 12:36 17:42 00:12 WBC RBC Hgb Hct MCV MCH RDW Plt Count Lymph % (Auto) [place] % (Auto) Eos % (Auto) Baso % (Auto) Lymph # Baso # Seg Neutrophils % Lymphocytes % (Manual) Monocytes % (Manual) Nucleated RBC % Seg Neutrophils # Seg Neutrophils # Man Monocytes # (Manual) PT INR Activated Clotting Time POC ABG pH POC ABG pCO2 POC ABG pO2 Sodium Potassium Chloride Carbon Dioxide BUN Creatinine Glucose POC Glucose 128 H 140 H 132 H Calcium Magnesium Direct Bilirubin AST ALT Alkaline Phosphatase Total Creatine Kinase CK-MB (CK-2) CK-MB (CK-2) Rel Index Troponin T C-Reactive Protein Total Protein Albumin Triglycerides Ur Specific [place] Urine WBC (Auto) Miscellaneous Test 04/20/17 04/20/17 04/20/17 03:35 03:35 05:10 WBC RBC 3.34 L Hgb 10.4 L Hct 31.6 L MCV 95 H MCH RDW Plt Count Lymph % (Auto) 12.9 L [place] % (Auto) Eos % (Auto) Baso % (Auto) Lymph # Baso # Seg Neutrophils % 77.3 H Lymphocytes % (Manual) Monocytes % (Manual) Nucleated RBC % Seg Neutrophils # Seg Neutrophils # Man Monocytes # (Manual) PT INR Activated Clotting Time POC ABG pH POC ABG pCO2 POC ABG pO2 Sodium Potassium Chloride Carbon Dioxide BUN Creatinine 0.3 L Glucose 155 H POC Glucose 135 H Calcium 7.8 L Magnesium Direct Bilirubin AST ALT Alkaline Phosphatase Total Creatine Kinase CK-MB (CK-2) CK-MB (CK-2) Rel Index Troponin T C-Reactive Protein Total Protein Albumin Triglycerides Ur Specific [place] Urine WBC (Auto) Miscellaneous Test 04/20/17 04/20/17 04/21/17 12:49 18:21 00:05 WBC RBC Hgb Hct MCV MCH RDW Plt Count Lymph % (Auto) [place] % (Auto) Eos % (Auto) Baso % (Auto) Lymph # Baso # Seg Neutrophils % Lymphocytes % (Manual) Monocytes % (Manual) Nucleated RBC % Seg Neutrophils # Seg Neutrophils # Man Monocytes # (Manual) PT INR Activated Clotting Time POC ABG pH POC ABG pCO2 POC ABG pO2 Sodium Potassium Chloride Carbon Dioxide BUN Creatinine Glucose POC Glucose 155 H 165 H 141 H Calcium Magnesium Direct Bilirubin AST ALT Alkaline Phosphatase Total Creatine Kinase CK-MB (CK-2) CK-MB (CK-2) Rel Index Troponin T C-Reactive Protein Total Protein Albumin Triglycerides Ur Specific [place] Urine WBC (Auto) Miscellaneous Test 04/21/17 04/21/17 04/21/17 06:00 12:11 17:04 WBC RBC Hgb Hct MCV MCH RDW Plt Count Lymph % (Auto) [place] % (Auto) Eos % (Auto) Baso % (Auto) Lymph # Baso # Seg Neutrophils % Lymphocytes % (Manual) Monocytes % (Manual) Nucleated RBC % Seg Neutrophils # Seg Neutrophils # Man Monocytes # (Manual) PT INR Activated Clotting Time POC ABG pH POC ABG pCO2 POC ABG pO2 Sodium Potassium Chloride Carbon Dioxide BUN Creatinine Glucose POC Glucose 152 H 165 H 156 H Calcium Magnesium Direct Bilirubin AST ALT Alkaline Phosphatase Total Creatine Kinase CK-MB (CK-2) CK-MB (CK-2) Rel Index Troponin T C-Reactive Protein Total Protein Albumin Triglycerides Ur Specific [place] Urine WBC (Auto) Miscellaneous Test 04/21/17 04/21/17 04/22/17 22:00 23:59 05:49 WBC RBC Hgb Hct MCV MCH RDW Plt Count Lymph % (Auto) [place] % (Auto) Eos % (Auto) Baso % (Auto) Lymph # Baso # Seg Neutrophils % Lymphocytes % (Manual) Monocytes % (Manual) Nucleated RBC % Seg Neutrophils # Seg Neutrophils # Man Monocytes # (Manual) PT INR Activated Clotting Time POC ABG pH POC ABG pCO2 POC ABG pO2 Sodium Potassium Chloride Carbon Dioxide BUN Creatinine Glucose POC Glucose 166 H 173 H Calcium Magnesium Direct Bilirubin AST ALT Alkaline Phosphatase Total Creatine Kinase CK-MB (CK-2) CK-MB (CK-2) Rel Index Troponin T C-Reactive Protein Total Protein Albumin Triglycerides Ur Specific [place] Urine WBC (Auto) 10.0 H Miscellaneous Test 0104/22/17 04/23/17 11:11 18:04 00:37 WBC RBC Hgb Hct MCV MCH RDW Plt Count Lymph % (Auto) [place] % (Auto) Eos % (Auto) Baso % (Auto) Lymph # Baso # Seg Neutrophils % Lymphocytes % (Manual) Monocytes % (Manual) Nucleated RBC % Seg Neutrophils # Seg Neutrophils # Man Monocytes # (Manual) PT INR Activated Clotting Time POC ABG pH POC ABG pCO2 POC ABG pO2 Sodium Potassium Chloride Carbon Dioxide BUN Creatinine Glucose POC Glucose 172 H 140 H 135 H Calcium Magnesium Direct Bilirubin AST ALT Alkaline Phosphatase Total Creatine Kinase CK-MB (CK-2) CK-MB (CK-2) Rel Index Troponin T C-Reactive Protein Total Protein Albumin Triglycerides Ur Specific [place] Urine WBC (Auto) Miscellaneous Test 04/23/17 04/23/17 04/23/17 05:33 06:20 11:10 WBC RBC 3.19 L Hgb 9.9 L Hct 30.0 L MCV MCH RDW Plt Count Lymph % (Auto) 8.0 L [place] % (Auto) Eos % (Auto) Baso % (Auto) Lymph # 0.8 L Baso # Seg Neutrophils % 84.5 H Lymphocytes % (Manual) Monocytes % (Manual) Nucleated RBC % Seg Neutrophils # 8.2 H Seg Neutrophils # Man Monocytes # (Manual) PT INR Activated Clotting Time POC ABG pH POC ABG pCO2 POC ABG pO2 Sodium Potassium Chloride Carbon Dioxide BUN Creatinine Glucose POC Glucose 134 H 134 H Calcium Magnesium Direct Bilirubin AST ALT Alkaline Phosphatase Total Creatine Kinase CK-MB (CK-2) CK-MB (CK-2) Rel Index Troponin T C-Reactive Protein Total Protein Albumin Triglycerides Ur Specific [place] Urine WBC (Auto) Miscellaneous Test 04/23/17 04/24/17 04/24/17 17:26 00:53 06:46 WBC RBC Hgb Hct MCV MCH RDW Plt Count Lymph % (Auto) [place] % (Auto) Eos % (Auto) Baso % (Auto) Lymph # Baso # Seg Neutrophils % Lymphocytes % (Manual) Monocytes % (Manual) Nucleated RBC % Seg Neutrophils # Seg Neutrophils # Man Monocytes # (Manual) PT INR Activated Clotting Time POC ABG pH POC ABG pCO2 POC ABG pO2 Sodium Potassium Chloride Carbon Dioxide BUN Creatinine Glucose POC Glucose 164 H 146 H 125 H Calcium Magnesium Direct Bilirubin AST ALT Alkaline Phosphatase Total Creatine Kinase CK-MB (CK-2) CK-MB (CK-2) Rel Index Troponin T C-Reactive Protein Total Protein Albumin Triglycerides Ur Specific [place] Urine WBC (Auto) Miscellaneous Test 04/24/17 04/24/17 04/24/17 11:55 17:50 23:36 WBC RBC Hgb Hct MCV MCH RDW Plt Count Lymph % (Auto) [place] % (Auto) Eos % (Auto) Baso % (Auto) Lymph # Baso # Seg Neutrophils % Lymphocytes % (Manual) Monocytes % (Manual) Nucleated RBC % Seg Neutrophils # Seg Neutrophils # Man Monocytes # (Manual) PT INR Activated Clotting Time POC ABG pH POC ABG pCO2 POC ABG pO2 Sodium Potassium Chloride Carbon Dioxide BUN Creatinine Glucose POC Glucose 156 H 146 H 131 H Calcium Magnesium Direct Bilirubin AST ALT Alkaline Phosphatase Total Creatine Kinase CK-MB (CK-2) CK-MB (CK-2) Rel Index Troponin T C-Reactive Protein Total Protein Albumin Triglycerides Ur Specific [place] Urine WBC (Auto) Miscellaneous Test 04/25/17 04/25/17 04/25/17 04:51 05:16 07:07 WBC RBC Hgb Hct MCV MCH RDW Plt Count Lymph % (Auto) [place] % (Auto) Eos % (Auto) Baso % (Auto) Lymph # Baso # Seg Neutrophils % Lymphocytes % (Manual) Monocytes % (Manual) Nucleated RBC % Seg Neutrophils # Seg Neutrophils # Man Monocytes # (Manual) PT INR Activated Clotting Time POC ABG pH POC ABG pCO2 POC ABG pO2 Sodium Potassium Chloride Carbon Dioxide BUN Creatinine Glucose POC Glucose 139 H Calcium Magnesium Direct Bilirubin AST 105 H ALT 204 H Alkaline Phosphatase 189 H Total Creatine Kinase CK-MB (CK-2) CK-MB (CK-2) Rel Index Troponin T C-Reactive Protein Total Protein Albumin 2.4 L Triglycerides Ur Specific [place] Urine WBC (Auto) Miscellaneous Test Flexitest 1 H 04/25/17 04/25/17 04/25/17 12:29 17:23 23:32 WBC RBC Hgb Hct MCV MCH RDW Plt Count Lymph % (Auto) [place] % (Auto) Eos % (Auto) Baso % (Auto) Lymph # Baso # Seg Neutrophils % Lymphocytes % (Manual) Monocytes % (Manual) Nucleated RBC % Seg Neutrophils # Seg Neutrophils # Man Monocytes # (Manual) PT INR Activated Clotting Time POC ABG pH POC ABG pCO2 POC ABG pO2 Sodium Potassium Chloride Carbon Dioxide BUN Creatinine Glucose POC Glucose 132 H 133 H 128 H Calcium Magnesium Direct Bilirubin AST ALT Alkaline Phosphatase Total Creatine Kinase CK-MB (CK-2) CK-MB (CK-2) Rel Index Troponin T C-Reactive Protein Total Protein Albumin Triglycerides Ur Specific [place] Urine WBC (Auto) Miscellaneous Test 04/26/17 04/26/17 04/26/17 05:24 11:28 17:09 WBC RBC Hgb Hct MCV MCH RDW Plt Count Lymph % (Auto) [place] % (Auto) Eos % (Auto) Baso % (Auto) Lymph # Baso # Seg Neutrophils % Lymphocytes % (Manual) Monocytes % (Manual) Nucleated RBC % Seg Neutrophils # Seg Neutrophils # Man Monocytes # (Manual) PT INR Activated Clotting Time POC ABG pH POC ABG pCO2 POC ABG pO2 Sodium Potassium Chloride Carbon Dioxide BUN Creatinine Glucose POC Glucose 132 H 146 H 141 H Calcium Magnesium Direct Bilirubin AST ALT Alkaline Phosphatase Total Creatine Kinase CK-MB (CK-2) CK-MB (CK-2) Rel Index Troponin T C-Reactive Protein Total Protein Albumin Triglycerides Ur Specific [place] Urine WBC (Auto) Miscellaneous Test 04/26/17 04/27/17 04/27/17 23:52 05:40 05:40 WBC RBC 3.22 L Hgb 10.0 L Hct 29.9 L MCV MCH RDW Plt Count Lymph % (Auto) [place] % (Auto) Eos % (Auto) Baso % (Auto) Lymph # Baso # Seg Neutrophils % 76.6 H Lymphocytes % (Manual) Monocytes % (Manual) Nucleated RBC % Seg Neutrophils # Seg Neutrophils # Man Monocytes # (Manual) PT INR Activated Clotting Time POC ABG pH POC ABG pCO2 POC ABG pO2 Sodium Potassium Chloride Carbon Dioxide BUN Creatinine Glucose POC Glucose 140 H Calcium Magnesium Direct Bilirubin AST 66 H ALT 137 H Alkaline Phosphatase 169 H Total Creatine Kinase CK-MB (CK-2) CK-MB (CK-2) Rel Index Troponin T C-Reactive Protein Total Protein 6.2 L Albumin 2.6 L Triglycerides Ur Specific [place] Urine WBC (Auto) Miscellaneous Test 04/27/17 04/27/17 04/27/17 05:40 06:10 11:13 WBC RBC Hgb Hct MCV MCH RDW Plt Count Lymph % (Auto) [place] % (Auto) Eos % (Auto) Baso % (Auto) Lymph # Baso # Seg Neutrophils % Lymphocytes % (Manual) Monocytes % (Manual) Nucleated RBC % Seg Neutrophils # Seg Neutrophils # Man Monocytes # (Manual) PT INR Activated Clotting Time POC ABG pH POC ABG pCO2 POC ABG pO2 Sodium Potassium Chloride Carbon Dioxide BUN Creatinine 0.2 L Glucose 139 H POC Glucose 130 H 151 H Calcium Magnesium Direct Bilirubin AST ALT Alkaline Phosphatase Total Creatine Kinase CK-MB (CK-2) CK-MB (CK-2) Rel Index Troponin T C-Reactive Protein Total Protein Albumin Triglycerides Ur Specific [place] Urine WBC (Auto) Miscellaneous Test 04/27/17 04/27/17 04/28/17 17:37 23:19 05:24 WBC RBC Hgb Hct MCV MCH RDW Plt Count Lymph % (Auto) [place] % (Auto) Eos % (Auto) Baso % (Auto) Lymph # Baso # Seg Neutrophils % Lymphocytes % (Manual) Monocytes % (Manual) Nucleated RBC % Seg Neutrophils # Seg Neutrophils # Man Monocytes # (Manual) PT INR Activated Clotting Time POC ABG pH POC ABG pCO2 POC ABG pO2 Sodium Potassium Chloride Carbon Dioxide BUN Creatinine Glucose POC Glucose 159 H 130 H 132 H Calcium Magnesium Direct Bilirubin AST ALT Alkaline Phosphatase Total Creatine Kinase CK-MB (CK-2) CK-MB (CK-2) Rel Index Troponin T C-Reactive Protein Total Protein Albumin Triglycerides Ur Specific [place] Urine WBC (Auto) Miscellaneous Test 04/28/17 04/28/17 04/28/17 11:15 17:38 23:23 WBC RBC Hgb Hct MCV MCH RDW Plt Count Lymph % (Auto) [place] % (Auto) Eos % (Auto) Baso % (Auto) Lymph # Baso # Seg Neutrophils % Lymphocytes % (Manual) Monocytes % (Manual) Nucleated RBC % Seg Neutrophils # Seg Neutrophils # Man Monocytes # (Manual) PT INR Activated Clotting Time POC ABG pH POC ABG pCO2 POC ABG pO2 Sodium Potassium Chloride Carbon Dioxide BUN Creatinine Glucose POC Glucose 162 H 133 H 138 H Calcium Magnesium Direct Bilirubin AST ALT Alkaline Phosphatase Total Creatine Kinase CK-MB (CK-2) CK-MB (CK-2) Rel Index Troponin T C-Reactive Protein Total Protein Albumin Triglycerides Ur Specific [place] Urine WBC (Auto) Miscellaneous Test 04/29/17 04/29/17 04/29/17 05:15 12:55 17:21 WBC RBC Hgb Hct MCV MCH RDW Plt Count Lymph % (Auto) [place] % (Auto) Eos % (Auto) Baso % (Auto) Lymph # Baso # Seg Neutrophils % Lymphocytes % (Manual) Monocytes % (Manual) Nucleated RBC % Seg Neutrophils # Seg Neutrophils # Man Monocytes # (Manual) PT INR Activated Clotting Time POC ABG pH POC ABG pCO2 POC ABG pO2 Sodium Potassium Chloride Carbon Dioxide BUN Creatinine Glucose POC Glucose 135 H 127 H 138 H Calcium Magnesium Direct Bilirubin AST ALT Alkaline Phosphatase Total Creatine Kinase CK-MB (CK-2) CK-MB (CK-2) Rel Index Troponin T C-Reactive Protein Total Protein Albumin Triglycerides Ur Specific [place] Urine WBC (Auto) Miscellaneous Test 04/29/17 04/30/17 04/30/17 23:52 04:55 12:22 WBC RBC Hgb Hct MCV MCH RDW Plt Count Lymph % (Auto) [place] % (Auto) Eos % (Auto) Baso % (Auto) Lymph # Baso # Seg Neutrophils % Lymphocytes % (Manual) Monocytes % (Manual) Nucleated RBC % Seg Neutrophils # Seg Neutrophils # Man Monocytes # (Manual) PT INR Activated Clotting Time POC ABG pH POC ABG pCO2 POC ABG pO2 Sodium Potassium Chloride Carbon Dioxide BUN Creatinine Glucose POC Glucose 142 H 146 H 132 H Calcium Magnesium Direct Bilirubin AST ALT Alkaline Phosphatase Total Creatine Kinase CK-MB (CK-2) CK-MB (CK-2) Rel Index Troponin T C-Reactive Protein Total Protein Albumin Triglycerides Ur Specific [place] Urine WBC (Auto) Miscellaneous Test 04/30/17 04/30/17 04/30/17 14:25 17:47 18:20 WBC RBC Hgb Hct MCV MCH RDW Plt Count Lymph % (Auto) [place] % (Auto) Eos % (Auto) Baso % (Auto) Lymph # Baso # Seg Neutrophils % Lymphocytes % (Manual) Monocytes % (Manual) Nucleated RBC % Seg Neutrophils # Seg Neutrophils # Man Monocytes # (Manual) PT INR Activated Clotting Time POC ABG pH 7.551 H POC ABG pCO2 32.7 L POC ABG pO2 Sodium Potassium Chloride Carbon Dioxide BUN 21 H Creatinine 0.2 L Glucose 141 H POC Glucose 139 H Calcium Magnesium Direct Bilirubin AST ALT Alkaline Phosphatase Total Creatine Kinase CK-MB (CK-2) CK-MB (CK-2) Rel Index Troponin T C-Reactive Protein Total Protein Albumin Triglycerides Ur Specific [place] Urine WBC (Auto) Miscellaneous Test 05/01/17 05/01/17 05/01/17 01:26 05:30 05:30 WBC RBC 3.49 L Hgb 10.3 L Hct 31.9 L MCV MCH RDW Plt Count Lymph % (Auto) [place] % (Auto) 8.1 H Eos % (Auto) Baso % (Auto) Lymph # Baso # Seg Neutrophils % 71.3 H Lymphocytes % (Manual) Monocytes % (Manual) Nucleated RBC % Seg Neutrophils # Seg Neutrophils # Man Monocytes # (Manual) PT INR Activated Clotting Time POC ABG pH POC ABG pCO2 POC ABG pO2 Sodium 136 L Potassium Chloride 97.6 L Carbon Dioxide BUN Creatinine 0.2 L Glucose 123 H POC Glucose 116 H Calcium Magnesium Direct Bilirubin AST 71 H ALT 125 H Alkaline Phosphatase 158 H Total Creatine Kinase CK-MB (CK-2) CK-MB (CK-2) Rel Index Troponin T C-Reactive Protein Total Protein Albumin 2.6 L Triglycerides Ur Specific [place] Urine WBC (Auto) Miscellaneous Test 05/01/17 05/01/17 05/02/17 11:59 17:23 00:08 WBC RBC Hgb Hct MCV MCH RDW Plt Count Lymph % (Auto) [place] % (Auto) Eos % (Auto) Baso % (Auto) Lymph # Baso # Seg Neutrophils % Lymphocytes % (Manual) Monocytes % (Manual) Nucleated RBC % Seg Neutrophils # Seg Neutrophils # Man Monocytes # (Manual) PT INR Activated Clotting Time POC ABG pH POC ABG pCO2 POC ABG pO2 Sodium Potassium Chloride Carbon Dioxide BUN Creatinine Glucose POC Glucose 118 H 144 H 122 H Calcium Magnesium Direct Bilirubin AST ALT Alkaline Phosphatase Total Creatine Kinase CK-MB (CK-2) CK-MB (CK-2) Rel Index Troponin T C-Reactive Protein Total Protein Albumin Triglycerides Ur Specific [place] Urine WBC (Auto) Miscellaneous Test 05/02/17 05/02/17 05/02/17 05:50 11:21 17:48 WBC RBC Hgb Hct MCV MCH RDW Plt Count Lymph % (Auto) [place] % (Auto) Eos % (Auto) Baso % (Auto) Lymph # Baso # Seg Neutrophils % Lymphocytes % (Manual) Monocytes % (Manual) Nucleated RBC % Seg Neutrophils # Seg Neutrophils # Man Monocytes # (Manual) PT INR Activated Clotting Time POC ABG pH POC ABG pCO2 POC ABG pO2 Sodium Potassium Chloride Carbon Dioxide BUN Creatinine Glucose POC Glucose 120 H 121 H 140 H Calcium Magnesium Direct Bilirubin AST ALT Alkaline Phosphatase Total Creatine Kinase CK-MB (CK-2) CK-MB (CK-2) Rel Index Troponin T C-Reactive Protein Total Protein Albumin Triglycerides Ur Specific [place] Urine WBC (Auto) Miscellaneous Test 05/02/17 05/03/17 05/03/17 23:12 05:35 11:52 WBC RBC Hgb Hct MCV MCH RDW Plt Count Lymph % (Auto) [place] % (Auto) Eos % (Auto) Baso % (Auto) Lymph # Baso # Seg Neutrophils % Lymphocytes % (Manual) Monocytes % (Manual) Nucleated RBC % Seg Neutrophils # Seg Neutrophils # Man Monocytes # (Manual) PT INR Activated Clotting Time POC ABG pH POC ABG pCO2 POC ABG pO2 Sodium Potassium Chloride Carbon Dioxide BUN Creatinine Glucose POC Glucose 128 H 113 H 126 H Calcium Magnesium Direct Bilirubin AST ALT Alkaline Phosphatase Total Creatine Kinase CK-MB (CK-2) CK-MB (CK-2) Rel Index Troponin T C-Reactive Protein Total Protein Albumin Triglycerides Ur Specific [place] Urine WBC (Auto) Miscellaneous Test 05/03/17 05/03/17 05/04/17 17:29 23:26 04:55 WBC RBC Hgb Hct MCV MCH RDW Plt Count Lymph % (Auto) [place] % (Auto) Eos % (Auto) Baso % (Auto) Lymph # Baso # Seg Neutrophils % Lymphocytes % (Manual) Monocytes % (Manual) Nucleated RBC % Seg Neutrophils # Seg Neutrophils # Man Monocytes # (Manual) PT INR Activated Clotting Time POC ABG pH POC ABG pCO2 POC ABG pO2 Sodium Potassium Chloride Carbon Dioxide BUN Creatinine Glucose POC Glucose 141 H 129 H 126 H Calcium Magnesium Direct Bilirubin AST ALT Alkaline Phosphatase Total Creatine Kinase CK-MB (CK-2) CK-MB (CK-2) Rel Index Troponin T C-Reactive Protein Total Protein Albumin Triglycerides Ur Specific [place] Urine WBC (Auto) Miscellaneous Test 05/04/17 05/04/17 05/05/17 12:09 17:46 00:06 WBC RBC Hgb Hct MCV MCH RDW Plt Count Lymph % (Auto) [place] % (Auto) Eos % (Auto) Baso % (Auto) Lymph # Baso # Seg Neutrophils % Lymphocytes % (Manual) Monocytes % (Manual) Nucleated RBC % Seg Neutrophils # Seg Neutrophils # Man Monocytes # (Manual) PT INR Activated Clotting Time POC ABG pH POC ABG pCO2 POC ABG pO2 Sodium Potassium Chloride Carbon Dioxide BUN Creatinine Glucose POC Glucose 125 H 125 H 110 H Calcium Magnesium Direct Bilirubin AST ALT Alkaline Phosphatase Total Creatine Kinase CK-MB (CK-2) CK-MB (CK-2) Rel Index Troponin T C-Reactive Protein Total Protein Albumin Triglycerides Ur Specific [place] Urine WBC (Auto) Miscellaneous Test 05/05/17 05/05/17 05/05/17 05:48 11:41 16:19 WBC RBC Hgb Hct MCV MCH RDW Plt Count Lymph % (Auto) [place] % (Auto) Eos % (Auto) Baso % (Auto) Lymph # Baso # Seg Neutrophils % Lymphocytes % (Manual) Monocytes % (Manual) Nucleated RBC % Seg Neutrophils # Seg Neutrophils # Man Monocytes # (Manual) PT INR Activated Clotting Time POC ABG pH POC ABG pCO2 POC ABG pO2 Sodium Potassium Chloride Carbon Dioxide BUN Creatinine Glucose POC Glucose 124 H 122 H 120 H Calcium Magnesium Direct Bilirubin AST ALT Alkaline Phosphatase Total Creatine Kinase CK-MB (CK-2) CK-MB (CK-2) Rel Index Troponin T C-Reactive Protein Total Protein Albumin Triglycerides Ur Specific [place] Urine WBC (Auto) Miscellaneous Test 05/06/17 05/06/17 05/06/17 00:16 05:47 11:42 WBC RBC Hgb Hct MCV MCH RDW Plt Count Lymph % (Auto) [place] % (Auto) Eos % (Auto) Baso % (Auto) Lymph # Baso # Seg Neutrophils % Lymphocytes % (Manual) Monocytes % (Manual) Nucleated RBC % Seg Neutrophils # Seg Neutrophils # Man Monocytes # (Manual) PT INR Activated Clotting Time POC ABG pH POC ABG pCO2 POC ABG pO2 Sodium Potassium Chloride Carbon Dioxide BUN Creatinine Glucose POC Glucose 110 H 142 H 120 H Calcium Magnesium Direct Bilirubin AST ALT Alkaline Phosphatase Total Creatine Kinase CK-MB (CK-2) CK-MB (CK-2) Rel Index Troponin T C-Reactive Protein Total Protein Albumin Triglycerides Ur Specific [place] Urine WBC (Auto) Miscellaneous Test 05/06/17 05/07/17 05/07/17 17:46 00:07 05:28 WBC RBC Hgb Hct MCV MCH RDW Plt Count Lymph % (Auto) [place] % (Auto) Eos % (Auto) Baso % (Auto) Lymph # Baso # Seg Neutrophils % Lymphocytes % (Manual) Monocytes % (Manual) Nucleated RBC % Seg Neutrophils # Seg Neutrophils # Man Monocytes # (Manual) PT INR Activated Clotting Time POC ABG pH POC ABG pCO2 POC ABG pO2 Sodium Potassium Chloride Carbon Dioxide BUN Creatinine Glucose POC Glucose 127 H 145 H 124 H Calcium Magnesium Direct Bilirubin AST ALT Alkaline Phosphatase Total Creatine Kinase CK-MB (CK-2) CK-MB (CK-2) Rel Index Troponin T C-Reactive Protein Total Protein Albumin Triglycerides Ur Specific [place] Urine WBC (Auto) Miscellaneous Test 05/07/17 05/07/17 05/08/17 11:17 17:14 00:03 WBC RBC Hgb Hct MCV MCH RDW Plt Count Lymph % (Auto) [place] % (Auto) Eos % (Auto) Baso % (Auto) Lymph # Baso # Seg Neutrophils % Lymphocytes % (Manual) Monocytes % (Manual) Nucleated RBC % Seg Neutrophils # Seg Neutrophils # Man Monocytes # (Manual) PT INR Activated Clotting Time POC ABG pH POC ABG pCO2 POC ABG pO2 Sodium Potassium Chloride Carbon Dioxide BUN Creatinine Glucose POC Glucose 144 H 125 H 122 H Calcium Magnesium Direct Bilirubin AST ALT Alkaline Phosphatase Total Creatine Kinase CK-MB (CK-2) CK-MB (CK-2) Rel Index Troponin T C-Reactive Protein Total Protein Albumin Triglycerides Ur Specific [place] Urine WBC (Auto) Miscellaneous Test 05/08/17 05/08/17 05/08/17 05:43 12:07 18:02 WBC RBC Hgb Hct MCV MCH RDW Plt Count Lymph % (Auto) [place] % (Auto) Eos % (Auto) Baso % (Auto) Lymph # Baso # Seg Neutrophils % Lymphocytes % (Manual) Monocytes % (Manual) Nucleated RBC % Seg Neutrophils # Seg Neutrophils # Man Monocytes # (Manual) PT INR Activated Clotting Time POC ABG pH POC ABG pCO2 POC ABG pO2 Sodium Potassium Chloride Carbon Dioxide BUN Creatinine Glucose POC Glucose 117 H 114 H 129 H Calcium Magnesium Direct Bilirubin AST ALT Alkaline Phosphatase Total Creatine Kinase CK-MB (CK-2) CK-MB (CK-2) Rel Index Troponin T C-Reactive Protein Total Protein Albumin Triglycerides Ur Specific [place] Urine WBC (Auto) Miscellaneous Test 05/08/17 05/09/17 05/09/17 23:53 04:19 05:14 WBC RBC Hgb Hct MCV MCH RDW Plt Count Lymph % (Auto) [place] % (Auto) Eos % (Auto) Baso % (Auto) Lymph # Baso # Seg Neutrophils % Lymphocytes % (Manual) Monocytes % (Manual) Nucleated RBC % Seg Neutrophils # Seg Neutrophils # Man Monocytes # (Manual) PT INR Activated Clotting Time POC ABG pH 7.524 H POC ABG pCO2 34.7 L POC ABG pO2 107 H Sodium Potassium Chloride Carbon Dioxide BUN Creatinine Glucose POC Glucose 125 H 118 H Calcium Magnesium Direct Bilirubin AST ALT Alkaline Phosphatase Total Creatine Kinase CK-MB (CK-2) CK-MB (CK-2) Rel Index Troponin T C-Reactive Protein Total Protein Albumin Triglycerides Ur Specific [place] Urine WBC (Auto) Miscellaneous Test 05/10/17 05/11/17 05/11/17 23:54 05:48 23:50 WBC RBC Hgb Hct MCV MCH RDW Plt Count Lymph % (Auto) [place] % (Auto) Eos % (Auto) Baso % (Auto) Lymph # Baso # Seg Neutrophils % Lymphocytes % (Manual) Monocytes % (Manual) Nucleated RBC % Seg Neutrophils # Seg Neutrophils # Man Monocytes # (Manual) PT INR Activated Clotting Time POC ABG pH POC ABG pCO2 POC ABG pO2 Sodium Potassium Chloride Carbon Dioxide BUN Creatinine Glucose POC Glucose 126 H 137 H 130 H Calcium Magnesium Direct Bilirubin AST ALT Alkaline Phosphatase Total Creatine Kinase CK-MB (CK-2) CK-MB (CK-2) Rel Index Troponin T C-Reactive Protein Total Protein Albumin Triglycerides Ur Specific [place] Urine WBC (Auto) Miscellaneous Test 05/12/17 05/12/17 05/12/17 05:48 11:33 18:00 WBC RBC Hgb Hct MCV MCH RDW Plt Count Lymph % (Auto) [place] % (Auto) Eos % (Auto) Baso % (Auto) Lymph # Baso # Seg Neutrophils % Lymphocytes % (Manual) Monocytes % (Manual) Nucleated RBC % Seg Neutrophils # Seg Neutrophils # Man Monocytes # (Manual) PT INR Activated Clotting Time POC ABG pH POC ABG pCO2 POC ABG pO2 Sodium Potassium Chloride Carbon Dioxide BUN Creatinine Glucose POC Glucose 126 H 116 H 131 H Calcium Magnesium Direct Bilirubin AST ALT Alkaline Phosphatase Total Creatine Kinase CK-MB (CK-2) CK-MB (CK-2) Rel Index Troponin T C-Reactive Protein Total Protein Albumin Triglycerides Ur Specific [place] Urine WBC (Auto) Miscellaneous Test 05/14/17 05/15/17 05/15/17 11:45 11:27 17:42 WBC RBC Hgb Hct MCV MCH RDW Plt Count Lymph % (Auto) [place] % (Auto) Eos % (Auto) Baso % (Auto) Lymph # Baso # Seg Neutrophils % Lymphocytes % (Manual) Monocytes % (Manual) Nucleated RBC % Seg Neutrophils # Seg Neutrophils # Man Monocytes # (Manual) PT INR Activated Clotting Time POC ABG pH POC ABG pCO2 POC ABG pO2 Sodium Potassium Chloride Carbon Dioxide BUN Creatinine Glucose POC Glucose 123 H 129 H 125 H Calcium Magnesium Direct Bilirubin AST ALT Alkaline Phosphatase Total Creatine Kinase CK-MB (CK-2) CK-MB (CK-2) Rel Index Troponin T C-Reactive Protein Total Protein Albumin Triglycerides Ur Specific [place] Urine WBC (Auto) Miscellaneous Test 05/16/17 05/16/17 05/17/17 00:29 06:50 03:45 WBC RBC Hgb 11.7 L Hct 34.8 L MCV MCH RDW 15.5 H Plt Count Lymph % (Auto) [place] % (Auto) 7.7 H Eos % (Auto) Baso % (Auto) Lymph # Baso # Seg Neutrophils % 73.7 H Lymphocytes % (Manual) Monocytes % (Manual) Nucleated RBC % Seg Neutrophils # Seg Neutrophils # Man Monocytes # (Manual) PT INR Activated Clotting Time POC ABG pH POC ABG pCO2 POC ABG pO2 Sodium Potassium Chloride Carbon Dioxide BUN Creatinine Glucose POC Glucose 141 H 138 H Calcium Magnesium Direct Bilirubin AST ALT Alkaline Phosphatase Total Creatine Kinase CK-MB (CK-2) CK-MB (CK-2) Rel Index Troponin T C-Reactive Protein Total Protein Albumin Triglycerides Ur Specific [place] Urine WBC (Auto) Miscellaneous Test 05/17/17 05/20/17 05/23/17 03:45 17:31 23:09 WBC RBC Hgb Hct MCV MCH RDW Plt Count Lymph % (Auto) [place] % (Auto) Eos % (Auto) Baso % (Auto) Lymph # Baso # Seg Neutrophils % Lymphocytes % (Manual) Monocytes % (Manual) Nucleated RBC % Seg Neutrophils # Seg Neutrophils # Man Monocytes # (Manual) PT INR Activated Clotting Time POC ABG pH POC ABG pCO2 POC ABG pO2 Sodium Potassium Chloride Carbon Dioxide BUN Creatinine 0.2 L Glucose 131 H POC Glucose 116 H 122 H Calcium Magnesium Direct Bilirubin AST ALT Alkaline Phosphatase Total Creatine Kinase CK-MB (CK-2) CK-MB (CK-2) Rel Index Troponin T C-Reactive Protein Total Protein Albumin Triglycerides Ur Specific [place] Urine WBC (Auto) Miscellaneous Test 05/24/17 05/26/17 05/27/17 05:37 05:23 01:16 WBC RBC Hgb Hct MCV MCH RDW Plt Count Lymph % (Auto) [place] % (Auto) Eos % (Auto) Baso % (Auto) Lymph # Baso # Seg Neutrophils % Lymphocytes % (Manual) Monocytes % (Manual) Nucleated RBC % Seg Neutrophils # Seg Neutrophils # Man Monocytes # (Manual) PT INR Activated Clotting Time POC ABG pH POC ABG pCO2 POC ABG pO2 Sodium Potassium Chloride Carbon Dioxide BUN Creatinine Glucose POC Glucose 139 H 108 H 126 H Calcium Magnesium Direct Bilirubin AST ALT Alkaline Phosphatase Total Creatine Kinase CK-MB (CK-2) CK-MB (CK-2) Rel Index Troponin T C-Reactive Protein Total Protein Albumin Triglycerides Ur Specific [place] Urine WBC (Auto) Miscellaneous Test 05/27/17 05/27/17 05/29/17 05:33 21:49 04:37 WBC RBC Hgb Hct MCV MCH RDW 15.5 H Plt Count Lymph % (Auto) [place] % (Auto) Eos % (Auto) Baso % (Auto) Lymph # Baso # Seg Neutrophils % Lymphocytes % (Manual) Monocytes % (Manual) Nucleated RBC % Seg Neutrophils # Seg Neutrophils # Man Monocytes # (Manual) PT INR Activated Clotting Time POC ABG pH POC ABG pCO2 POC ABG pO2 Sodium Potassium Chloride Carbon Dioxide BUN Creatinine Glucose POC Glucose 129 H 110 H Calcium Magnesium Direct Bilirubin AST ALT Alkaline Phosphatase Total Creatine Kinase CK-MB (CK-2) CK-MB (CK-2) Rel Index Troponin T C-Reactive Protein Total Protein Albumin Triglycerides Ur Specific [place] Urine WBC (Auto) Miscellaneous Test 05/29/17 06/01/17 06/08/17 04:37 05:28 22:45 WBC RBC Hgb Hct MCV MCH RDW Plt Count Lymph % (Auto) [place] % (Auto) Eos % (Auto) Baso % (Auto) Lymph # Baso # Seg Neutrophils % Lymphocytes % (Manual) Monocytes % (Manual) Nucleated RBC % Seg Neutrophils # Seg Neutrophils # Man Monocytes # (Manual) PT INR Activated Clotting Time POC ABG pH POC ABG pCO2 POC ABG pO2 Sodium Potassium Chloride 97.6 L Carbon Dioxide BUN Creatinine 0.2 L Glucose 121 H POC Glucose 133 H 110 H Calcium Magnesium Direct Bilirubin AST ALT Alkaline Phosphatase Total Creatine Kinase CK-MB (CK-2) CK-MB (CK-2) Rel Index Troponin T C-Reactive Protein Total Protein Albumin Triglycerides Ur Specific [place] Urine WBC (Auto) Miscellaneous Test 06/09/17 06/09/17 06/09/17 14:50 18:29 22:12 WBC RBC Hgb Hct MCV MCH RDW Plt Count Lymph % (Auto) [place] % (Auto) Eos % (Auto) Baso % (Auto) Lymph # Baso # Seg Neutrophils % Lymphocytes % (Manual) Monocytes % (Manual) Nucleated RBC % Seg Neutrophils # Seg Neutrophils # Man Monocytes # (Manual) PT INR Activated Clotting Time POC ABG pH 7.496 H POC ABG pCO2 33.7 L POC ABG pO2 Sodium Potassium Chloride Carbon Dioxide BUN Creatinine Glucose POC Glucose 121 H 109 H Calcium Magnesium Direct Bilirubin AST ALT Alkaline Phosphatase Total Creatine Kinase CK-MB (CK-2) CK-MB (CK-2) Rel Index Troponin T C-Reactive Protein Total Protein Albumin Triglycerides Ur Specific [place] Urine WBC (Auto) Miscellaneous Test 06/10/17 06/10/17 06/10/17 05:05 13:00 18:11 WBC RBC Hgb Hct MCV MCH RDW Plt Count Lymph % (Auto) [place] % (Auto) Eos % (Auto) Baso % (Auto) Lymph # Baso # Seg Neutrophils % Lymphocytes % (Manual) Monocytes % (Manual) Nucleated RBC % Seg Neutrophils # Seg Neutrophils # Man Monocytes # (Manual) PT INR Activated Clotting Time POC ABG pH POC ABG pCO2 POC ABG pO2 Sodium Potassium Chloride Carbon Dioxide BUN Creatinine Glucose POC Glucose 123 H 130 H 117 H Calcium Magnesium Direct Bilirubin AST ALT Alkaline Phosphatase Total Creatine Kinase CK-MB (CK-2) CK-MB (CK-2) Rel Index Troponin T C-Reactive Protein Total Protein Albumin Triglycerides Ur Specific [place] Urine WBC (Auto) Miscellaneous Test 06/10/17 06/11/17 06/12/17 21:22 16:02 05:10 WBC RBC Hgb Hct MCV MCH RDW 15.5 H Plt Count Lymph % (Auto) [place] % (Auto) 8.2 H Eos % (Auto) Baso % (Auto) Lymph # Baso # Seg Neutrophils % Lymphocytes % (Manual) Monocytes % (Manual) Nucleated RBC % Seg Neutrophils # Seg Neutrophils # Man Monocytes # (Manual) PT INR Activated Clotting Time POC ABG pH POC ABG pCO2 POC ABG pO2 Sodium Potassium Chloride Carbon Dioxide BUN Creatinine Glucose POC Glucose 113 H 125 H Calcium Magnesium Direct Bilirubin AST ALT Alkaline Phosphatase Total Creatine Kinase CK-MB (CK-2) CK-MB (CK-2) Rel Index Troponin T C-Reactive Protein Total Protein Albumin Triglycerides Ur Specific [place] Urine WBC (Auto) Miscellaneous Test 06/12/17 06/12/17 06/12/17 05:10 11:37 17:25 WBC RBC Hgb Hct MCV MCH RDW Plt Count Lymph % (Auto) [place] % (Auto) Eos % (Auto) Baso % (Auto) Lymph # Baso # Seg Neutrophils % Lymphocytes % (Manual) Monocytes % (Manual) Nucleated RBC % Seg Neutrophils # Seg Neutrophils # Man Monocytes # (Manual) PT INR Activated Clotting Time POC ABG pH POC ABG pCO2 POC ABG pO2 Sodium Potassium Chloride Carbon Dioxide BUN Creatinine 0.3 L Glucose 134 H POC Glucose 142 H 115 H Calcium Magnesium Direct Bilirubin AST ALT Alkaline Phosphatase Total Creatine Kinase CK-MB (CK-2) CK-MB (CK-2) Rel Index Troponin T C-Reactive Protein Total Protein Albumin Triglycerides Ur Specific [place] Urine WBC (Auto) Miscellaneous Test Chest x-ray: report reviewed, image reviewed
[2017-06-13] MEDS: ASPIRIN PO SCH (09:23)
[2017-06-13] MEDS: CORDARONE PO SCH ×2 (09:23→22:19)
[2017-06-13] MEDS: PLAVIX PO SCH (09:23)
[2017-06-13] MEDS: ELIQUIS PO SCH ×2 (09:23→22:19)
[2017-06-13] MEDS: PROTONIX FEEDTUBE SCH (09:23)
[2017-06-13] MEDS: ZESTRIL PO SCH (09:25)
[2017-06-13] MEDS: LOPRESSOR PO SCH ×2 (09:25→22:19)
--- NOTE | 2017-06-13 14:00 | Progress Note ---
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 Baso # Seg Neutrophils % 86.1 H Lymphocytes % (Manual) Monocytes % (Manual) Nucleated RBC % Seg Neutrophils # 10.7 H Seg Neutrophils # Man Monocytes # (Manual) PT INR Activated Clotting Time POC ABG pH POC ABG pCO2 POC ABG pO2 Sodium Potassium Chloride Carbon Dioxide BUN Creatinine Glucose POC Glucose 133 H 133 H Calcium Magnesium Direct Bilirubin AST ALT Alkaline Phosphatase Total Creatine Kinase CK-MB (CK-2) CK-MB (CK-2) Rel Index Troponin T C-Reactive Protein Total Protein Albumin Triglycerides Ur Specific [place] Urine WBC (Auto) Miscellaneous Test 04/15/17 04/15/17 04/15/17 05:15 05:25 11:50 WBC RBC Hgb Hct MCV MCH RDW Plt Count Lymph % (Auto) [place] % (Auto) Eos % (Auto) Baso % (Auto) Lymph # Baso # Seg Neutrophils % Lymphocytes % (Manual) Monocytes % (Manual) Nucleated RBC % Seg Neutrophils # Seg Neutrophils # Man Monocytes # (Manual) PT INR Activated Clotting Time POC ABG pH POC ABG pCO2 POC ABG pO2 Sodium 149 H Potassium 3.5 L Chloride 114.1 H Carbon Dioxide 21 L BUN 29 H Creatinine 0.4 L Glucose 128 H POC Glucose 133 H 107 H Calcium 8.3 L Magnesium Direct Bilirubin 0.4 H AST 149 H ALT 182 H Alkaline Phosphatase 143 H Total Creatine Kinase CK-MB (CK-2) CK-MB (CK-2) Rel Index Troponin T C-Reactive Protein Total Protein Albumin 2.5 L Triglycerides Ur Specific [place] Urine WBC (Auto) Miscellaneous Test 04/15/17 04/16/17 04/16/17 16:55 00:02 03:17 WBC RBC 3.39 L Hgb 10.5 L Hct 32.4 L MCV 96 H MCH RDW Plt Count 106 L Lymph % (Auto) 6.7 L [place] % (Auto) Eos % (Auto) Baso % (Auto) Lymph # 0.6 L Baso # Seg Neutrophils % 86.8 H Lymphocytes % (Manual) Monocytes % (Manual) Nucleated RBC % Seg Neutrophils # 8.2 H Seg Neutrophils # Man Monocytes # (Manual) PT INR Activated Clotting Time POC ABG pH POC ABG pCO2 POC ABG pO2 Sodium Potassium Chloride Carbon Dioxide BUN Creatinine Glucose POC Glucose 146 H 148 H Calcium Magnesium Direct Bilirubin AST ALT Alkaline Phosphatase Total Creatine Kinase CK-MB (CK-2) CK-MB (CK-2) Rel Index Troponin T C-Reactive Protein Total Protein Albumin Triglycerides Ur Specific [place] Urine WBC (Auto) Miscellaneous Test 04/16/17 04/16/17 04/16/17 03:17 05:19 11:13 WBC RBC Hgb Hct MCV MCH RDW Plt Count Lymph % (Auto) [place] % (Auto) Eos % (Auto) Baso % (Auto) Lymph # Baso # Seg Neutrophils % Lymphocytes % (Manual) Monocytes % (Manual) Nucleated RBC % Seg Neutrophils # Seg Neutrophils # Man Monocytes # (Manual) PT INR Activated Clotting Time POC ABG pH POC ABG pCO2 POC ABG pO2 Sodium 149 H Potassium Chloride 111.1 H Carbon Dioxide 20 L BUN 27 H Creatinine 0.3 L Glucose 156 H POC Glucose 171 H 169 H Calcium 8.3 L Magnesium Direct Bilirubin AST ALT Alkaline Phosphatase Total Creatine Kinase CK-MB (CK-2) CK-MB (CK-2) Rel Index Troponin T C-Reactive Protein Total Protein Albumin Triglycerides Ur Specific [place] Urine WBC (Auto) Miscellaneous Test 04/16/17 04/17/17 04/17/17 17:03 00:00 05:09 WBC RBC Hgb Hct MCV MCH RDW Plt Count Lymph % (Auto) [place] % (Auto) Eos % (Auto) Baso % (Auto) Lymph # Baso # Seg Neutrophils % Lymphocytes % (Manual) Monocytes % (Manual) Nucleated RBC % Seg Neutrophils # Seg Neutrophils # Man Monocytes # (Manual) PT INR Activated Clotting Time POC ABG pH POC ABG pCO2 POC ABG pO2 Sodium Potassium Chloride Carbon Dioxide BUN Creatinine Glucose POC Glucose 151 H 165 H 145 H Calcium Magnesium Direct Bilirubin AST ALT Alkaline Phosphatase Total Creatine Kinase CK-MB (CK-2) CK-MB (CK-2) Rel Index Troponin T C-Reactive Protein Total Protein Albumin Triglycerides Ur Specific [place] Urine WBC (Auto) Miscellaneous Test 04/17/17 04/17/17 04/18/17 11:38 17:47 00:01 WBC RBC Hgb Hct MCV MCH RDW Plt Count Lymph % (Auto) [place] % (Auto) Eos % (Auto) Baso % (Auto) Lymph # Baso # Seg Neutrophils % Lymphocytes % (Manual) Monocytes % (Manual) Nucleated RBC % Seg Neutrophils # Seg Neutrophils # Man Monocytes # (Manual) PT INR Activated Clotting Time POC ABG pH POC ABG pCO2 POC ABG pO2 Sodium Potassium Chloride Carbon Dioxide BUN Creatinine Glucose POC Glucose 170 H 161 H 131 H Calcium Magnesium Direct Bilirubin AST ALT Alkaline Phosphatase Total Creatine Kinase CK-MB (CK-2) CK-MB (CK-2) Rel Index Troponin T C-Reactive Protein Total Protein Albumin Triglycerides Ur Specific [place] Urine WBC (Auto) Miscellaneous Test 04/18/17 04/18/17 04/18/17 03:55 03:55 05:30 WBC RBC 3.05 L Hgb 9.8 L Hct 29.0 L MCV 95 H MCH RDW Plt Count 113 L Lymph % (Auto) [place] % (Auto) Eos % (Auto) 5.3 H Baso % (Auto) Lymph # Baso # Seg Neutrophils % 71.5 H Lymphocytes % (Manual) Monocytes % (Manual) Nucleated RBC % Seg Neutrophils # Seg Neutrophils # Man Monocytes # (Manual) PT INR Activated Clotting Time POC ABG pH 7.460 H POC ABG pCO2 30.8 L POC ABG pO2 129 H Sodium Potassium Chloride Carbon Dioxide 21 L BUN 25 H Creatinine 0.4 L Glucose 123 H POC Glucose Calcium 8.3 L Magnesium Direct Bilirubin AST ALT Alkaline Phosphatase Total Creatine Kinase CK-MB (CK-2) CK-MB (CK-2) Rel Index Troponin T C-Reactive Protein Total Protein Albumin Triglycerides Ur Specific [place] Urine WBC (Auto) Miscellaneous Test 04/18/17 04/18/17 04/19/17 17:10 23:40 04:36 WBC RBC 3.21 L Hgb 10.2 L Hct 30.4 L MCV 95 H MCH RDW Plt Count 131 L Lymph % (Auto) 12.1 L [place] % (Auto) Eos % (Auto) 4.7 H Baso % (Auto) 2.4 H Lymph # 0.9 L Baso # 0.2 H Seg Neutrophils % 75.0 H Lymphocytes % (Manual) Monocytes % (Manual) Nucleated RBC % Seg Neutrophils # Seg Neutrophils # Man Monocytes # (Manual) PT INR Activated Clotting Time POC ABG pH POC ABG pCO2 POC ABG pO2 Sodium Potassium Chloride Carbon Dioxide BUN Creatinine Glucose POC Glucose 135 H 157 H Calcium Magnesium Direct Bilirubin AST ALT Alkaline Phosphatase Total Creatine Kinase CK-MB (CK-2) CK-MB (CK-2) Rel Index Troponin T C-Reactive Protein Total Protein Albumin Triglycerides Ur Specific [place] Urine WBC (Auto) Miscellaneous Test 04/19/17 04/19/17 04/19/17 04:36 05:12 06:50 WBC RBC Hgb Hct MCV MCH RDW Plt Count Lymph % (Auto) [place] % (Auto) Eos % (Auto) Baso % (Auto) Lymph # Baso # Seg Neutrophils % Lymphocytes % (Manual) Monocytes % (Manual) Nucleated RBC % Seg Neutrophils # Seg Neutrophils # Man Monocytes # (Manual) PT INR Activated Clotting Time POC ABG pH 7.516 H POC ABG pCO2 28.0 L POC ABG pO2 Sodium Potassium Chloride Carbon Dioxide 21 L BUN 23 H Creatinine 0.2 L Glucose 137 H POC Glucose 131 H Calcium 7.9 L Magnesium Direct Bilirubin AST ALT Alkaline Phosphatase Total Creatine Kinase CK-MB (CK-2) CK-MB (CK-2) Rel Index Troponin T C-Reactive Protein Total Protein Albumin Triglycerides Ur Specific [place] Urine WBC (Auto) Miscellaneous Test 04/19/17 04/19/17 04/20/17 12:36 17:42 00:12 WBC RBC Hgb Hct MCV MCH RDW Plt Count Lymph % (Auto) [place] % (Auto) Eos % (Auto) Baso % (Auto) Lymph # Baso # Seg Neutrophils % Lymphocytes % (Manual) Monocytes % (Manual) Nucleated RBC % Seg Neutrophils # Seg Neutrophils # Man Monocytes # (Manual) PT INR Activated Clotting Time POC ABG pH POC ABG pCO2 POC ABG pO2 Sodium Potassium Chloride Carbon Dioxide BUN Creatinine Glucose POC Glucose 128 H 140 H 132 H Calcium Magnesium Direct Bilirubin AST ALT Alkaline Phosphatase Total Creatine Kinase CK-MB (CK-2) CK-MB (CK-2) Rel Index Troponin T C-Reactive Protein Total Protein Albumin Triglycerides Ur Specific [place] Urine WBC (Auto) Miscellaneous Test 04/20/17 04/20/17 04/20/17 03:35 03:35 05:10 WBC RBC 3.34 L Hgb 10.4 L Hct 31.6 L MCV 95 H MCH RDW Plt Count Lymph % (Auto) 12.9 L [place] % (Auto) Eos % (Auto) Baso % (Auto) Lymph # Baso # Seg Neutrophils % 77.3 H Lymphocytes % (Manual) Monocytes % (Manual) Nucleated RBC % Seg Neutrophils # Seg Neutrophils # Man Monocytes # (Manual) PT INR Activated Clotting Time POC ABG pH POC ABG pCO2 POC ABG pO2 Sodium Potassium Chloride Carbon Dioxide BUN Creatinine 0.3 L Glucose 155 H POC Glucose 135 H Calcium 7.8 L Magnesium Direct Bilirubin AST ALT Alkaline Phosphatase Total Creatine Kinase CK-MB (CK-2) CK-MB (CK-2) Rel Index Troponin T C-Reactive Protein Total Protein Albumin Triglycerides Ur Specific [place] Urine WBC (Auto) Miscellaneous Test 04/20/17 04/20/17 04/21/17 12:49 18:21 00:05 WBC RBC Hgb Hct MCV MCH RDW Plt Count Lymph % (Auto) [place] % (Auto) Eos % (Auto) Baso % (Auto) Lymph # Baso # Seg Neutrophils % Lymphocytes % (Manual) Monocytes % (Manual) Nucleated RBC % Seg Neutrophils # Seg Neutrophils # Man Monocytes # (Manual) PT INR Activated Clotting Time POC ABG pH POC ABG pCO2 POC ABG pO2 Sodium Potassium Chloride Carbon Dioxide BUN Creatinine Glucose POC Glucose 155 H 165 H 141 H Calcium Magnesium Direct Bilirubin AST ALT Alkaline Phosphatase Total Creatine Kinase CK-MB (CK-2) CK-MB (CK-2) Rel Index Troponin T C-Reactive Protein Total Protein Albumin Triglycerides Ur Specific [place] Urine WBC (Auto) Miscellaneous Test 04/21/17 04/21/17 04/21/17 06:00 12:11 17:04 WBC RBC Hgb Hct MCV MCH RDW Plt Count Lymph % (Auto) [place] % (Auto) Eos % (Auto) Baso % (Auto) Lymph # Baso # Seg Neutrophils % Lymphocytes % (Manual) Monocytes % (Manual) Nucleated RBC % Seg Neutrophils # Seg Neutrophils # Man Monocytes # (Manual) PT INR Activated Clotting Time POC ABG pH POC ABG pCO2 POC ABG pO2 Sodium Potassium Chloride Carbon Dioxide BUN Creatinine Glucose POC Glucose 152 H 165 H 156 H Calcium Magnesium Direct Bilirubin AST ALT Alkaline Phosphatase Total Creatine Kinase CK-MB (CK-2) CK-MB (CK-2) Rel Index Troponin T C-Reactive Protein Total Protein Albumin Triglycerides Ur Specific [place] Urine WBC (Auto) Miscellaneous Test 04/21/17 04/21/17 04/22/17 22:00 23:59 05:49 WBC RBC Hgb Hct MCV MCH RDW Plt Count Lymph % (Auto) [place] % (Auto) Eos % (Auto) Baso % (Auto) Lymph # Baso # Seg Neutrophils % Lymphocytes % (Manual) Monocytes % (Manual) Nucleated RBC % Seg Neutrophils # Seg Neutrophils # Man Monocytes # (Manual) PT INR Activated Clotting Time POC ABG pH POC ABG pCO2 POC ABG pO2 Sodium Potassium Chloride Carbon Dioxide BUN Creatinine Glucose POC Glucose 166 H 173 H Calcium Magnesium Direct Bilirubin AST ALT Alkaline Phosphatase Total Creatine Kinase CK-MB (CK-2) CK-MB (CK-2) Rel Index Troponin T C-Reactive Protein Total Protein Albumin Triglycerides Ur Specific [place] Urine WBC (Auto) 10.0 H Miscellaneous Test 04/22/17 04/22/17 04/23/17 11:11 18:04 00:37 WBC RBC Hgb Hct MCV MCH RDW Plt Count Lymph % (Auto) [place] % (Auto) Eos % (Auto) Baso % (Auto) Lymph # Baso # Seg Neutrophils % Lymphocytes % (Manual) Monocytes % (Manual) Nucleated RBC % Seg Neutrophils # Seg Neutrophils # Man Monocytes # (Manual) PT INR Activated Clotting Time POC ABG pH POC ABG pCO2 POC ABG pO2 Sodium Potassium Chloride Carbon Dioxide BUN Creatinine Glucose POC Glucose 172 H 140 H 135 H Calcium Magnesium Direct Bilirubin AST ALT Alkaline Phosphatase Total Creatine Kinase CK-MB (CK-2) CK-MB (CK-2) Rel Index Troponin T C-Reactive Protein Total Protein Albumin Triglycerides Ur Specific [place] Urine WBC (Auto) Miscellaneous Test 04/23/17 04/23/17 04/23/17 05:33 06:20 11:10 WBC RBC 3.19 L Hgb 9.9 L Hct 30.0 L MCV MCH RDW Plt Count Lymph % (Auto) 8.0 L [place] % (Auto) Eos % (Auto) Baso % (Auto) Lymph # 0.8 L Baso # Seg Neutrophils % 84.5 H Lymphocytes % (Manual) Monocytes % (Manual) Nucleated RBC % Seg Neutrophils # 8.2 H Seg Neutrophils # Man Monocytes # (Manual) PT INR Activated Clotting Time POC ABG pH POC ABG pCO2 POC ABG pO2 Sodium Potassium Chloride Carbon Dioxide BUN Creatinine Glucose POC Glucose 134 H 134 H Calcium Magnesium Direct Bilirubin AST ALT Alkaline Phosphatase Total Creatine Kinase CK-MB (CK-2) CK-MB (CK-2) Rel Index Troponin T C-Reactive Protein Total Protein Albumin Triglycerides Ur Specific [place] Urine WBC (Auto) Miscellaneous Test 04/23/17 04/24/17 04/24/17 17:26 00:53 06:46 WBC RBC Hgb Hct MCV MCH RDW Plt Count Lymph % (Auto) [place] % (Auto) Eos % (Auto) Baso % (Auto) Lymph # Baso # Seg Neutrophils % Lymphocytes % (Manual) Monocytes % (Manual) Nucleated RBC % Seg Neutrophils # Seg Neutrophils # Man Monocytes # (Manual) PT INR Activated Clotting Time POC ABG pH POC ABG pCO2 POC ABG pO2 Sodium Potassium Chloride Carbon Dioxide BUN Creatinine Glucose POC Glucose 164 H 146 H 125 H Calcium Magnesium Direct Bilirubin AST ALT Alkaline Phosphatase Total Creatine Kinase CK-MB (CK-2) CK-MB (CK-2) Rel Index Troponin T C-Reactive Protein Total Protein Albumin Triglycerides Ur Specific [place] Urine WBC (Auto) Miscellaneous Test 04/24/17 04/24/17 04/24/17 11:55 17:50 23:36 WBC RBC Hgb Hct MCV MCH RDW Plt Count Lymph % (Auto) [place] % (Auto) Eos % (Auto) Baso % (Auto) Lymph # Baso # Seg Neutrophils % Lymphocytes % (Manual) Monocytes % (Manual) Nucleated RBC % Seg Neutrophils # Seg Neutrophils # Man Monocytes # (Manual) PT INR Activated Clotting Time POC ABG pH POC ABG pCO2 POC ABG pO2 Sodium Potassium Chloride Carbon Dioxide BUN Creatinine Glucose POC Glucose 156 H 146 H 131 H Calcium Magnesium Direct Bilirubin AST ALT Alkaline Phosphatase Total Creatine Kinase CK-MB (CK-2) CK-MB (CK-2) Rel Index Troponin T C-Reactive Protein Total Protein Albumin Triglycerides Ur Specific [place] Urine WBC (Auto) Miscellaneous Test 04/25/17 04/25/17 04/25/17 04:51 05:16 07:07 WBC RBC Hgb Hct MCV MCH RDW Plt Count Lymph % (Auto) [place] % (Auto) Eos % (Auto) Baso % (Auto) Lymph # Baso # Seg Neutrophils % Lymphocytes % (Manual) Monocytes % (Manual) Nucleated RBC % Seg Neutrophils # Seg Neutrophils # Man Monocytes # (Manual) PT INR Activated Clotting Time POC ABG pH POC ABG pCO2 POC ABG pO2 Sodium Potassium Chloride Carbon Dioxide BUN Creatinine Glucose POC Glucose 139 H Calcium Magnesium Direct Bilirubin AST 105 H ALT 204 H Alkaline Phosphatase 189 H Total Creatine Kinase CK-MB (CK-2) CK-MB (CK-2) Rel Index Troponin T C-Reactive Protein Total Protein Albumin 2.4 L Triglycerides Ur Specific [place] Urine WBC (Auto) Miscellaneous Test Flexitest 1 H 04/25/17 04/25/17 04/25/17 12:29 17:23 23:32 WBC RBC Hgb Hct MCV MCH RDW Plt Count Lymph % (Auto) [place] % (Auto) Eos % (Auto) Baso % (Auto) Lymph # Baso # Seg Neutrophils % Lymphocytes % (Manual) Monocytes % (Manual) Nucleated RBC % Seg Neutrophils # Seg Neutrophils # Man Monocytes # (Manual) PT INR Activated Clotting Time POC ABG pH POC ABG pCO2 POC ABG pO2 Sodium Potassium Chloride Carbon Dioxide BUN Creatinine Glucose POC Glucose 132 H 133 H 128 H Calcium Magnesium Direct Bilirubin AST ALT Alkaline Phosphatase Total Creatine Kinase CK-MB (CK-2) CK-MB (CK-2) Rel Index Troponin T C-Reactive Protein Total Protein Albumin Triglycerides Ur Specific [place] Urine WBC (Auto) Miscellaneous Test 04/26/17 04/26/17 04/26/17 05:24 11:28 17:09 WBC RBC Hgb Hct MCV MCH RDW Plt Count Lymph % (Auto) [place] % (Auto) Eos % (Auto) Baso % (Auto) Lymph # Baso # Seg Neutrophils % Lymphocytes % (Manual) Monocytes % (Manual) Nucleated RBC % Seg Neutrophils # Seg Neutrophils # Man Monocytes # (Manual) PT INR Activated Clotting Time POC ABG pH POC ABG pCO2 POC ABG pO2 Sodium Potassium Chloride Carbon Dioxide BUN Creatinine Glucose POC Glucose 132 H 146 H 141 H Calcium Magnesium Direct Bilirubin AST ALT Alkaline Phosphatase Total Creatine Kinase CK-MB (CK-2) CK-MB (CK-2) Rel Index Troponin T C-Reactive Protein Total Protein Albumin Triglycerides Ur Specific [place] Urine WBC (Auto) Miscellaneous Test 04/26/17 04/27/17 04/27/17 23:52 05:40 05:40 WBC RBC 3.22 L Hgb 10.0 L Hct 29.9 L MCV MCH RDW Plt Count Lymph % (Auto) [place] % (Auto) Eos % (Auto) Baso % (Auto) Lymph # Baso # Seg Neutrophils % 76.6 H Lymphocytes % (Manual) Monocytes % (Manual) Nucleated RBC % Seg Neutrophils # Seg Neutrophils # Man Monocytes # (Manual) PT INR Activated Clotting Time POC ABG pH POC ABG pCO2 POC ABG pO2 Sodium Potassium Chloride Carbon Dioxide BUN Creatinine Glucose POC Glucose 140 H Calcium Magnesium Direct Bilirubin AST 66 H ALT 137 H Alkaline Phosphatase 169 H Total Creatine Kinase CK-MB (CK-2) CK-MB (CK-2) Rel Index Troponin T C-Reactive Protein Total Protein 6.2 L Albumin 2.6 L Triglycerides Ur Specific [place] Urine WBC (Auto) Miscellaneous Test 04/27/17 04/27/17 04/27/17 05:40 06:10 11:13 WBC RBC Hgb Hct MCV MCH RDW Plt Count Lymph % (Auto) [place] % (Auto) Eos % (Auto) Baso % (Auto) Lymph # Baso # Seg Neutrophils % Lymphocytes % (Manual) Monocytes % (Manual) Nucleated RBC % Seg Neutrophils # Seg Neutrophils # Man Monocytes # (Manual) PT INR Activated Clotting Time POC ABG pH POC ABG pCO2 POC ABG pO2 Sodium Potassium Chloride Carbon Dioxide BUN Creatinine 0.2 L Glucose 139 H POC Glucose 130 H 151 H Calcium Magnesium Direct Bilirubin AST ALT Alkaline Phosphatase Total Creatine Kinase CK-MB (CK-2) CK-MB (CK-2) Rel Index Troponin T C-Reactive Protein Total Protein Albumin Triglycerides Ur Specific [place] Urine WBC (Auto) Miscellaneous Test 04/27/17 04/27/17 04/28/17 17:37 23:19 05:24 WBC RBC Hgb Hct MCV MCH RDW Plt Count Lymph % (Auto) [place] % (Auto) Eos % (Auto) Baso % (Auto) Lymph # Baso # Seg Neutrophils % Lymphocytes % (Manual) Monocytes % (Manual) Nucleated RBC % Seg Neutrophils # Seg Neutrophils # Man Monocytes # (Manual) PT INR Activated Clotting Time POC ABG pH POC ABG pCO2 POC ABG pO2 Sodium Potassium Chloride Carbon Dioxide BUN Creatinine Glucose POC Glucose 159 H 130 H 132 H Calcium Magnesium Direct Bilirubin AST ALT Alkaline Phosphatase Total Creatine Kinase CK-MB (CK-2) CK-MB (CK-2) Rel Index Troponin T C-Reactive Protein Total Protein Albumin Triglycerides Ur Specific [place] Urine WBC (Auto) Miscellaneous Test 04/28/17 04/28/17 04/28/17 11:15 17:38 23:23 WBC RBC Hgb Hct MCV MCH RDW Plt Count Lymph % (Auto) [place] % (Auto) Eos % (Auto) Baso % (Auto) Lymph # Baso # Seg Neutrophils % Lymphocytes % (Manual) Monocytes % (Manual) Nucleated RBC % Seg Neutrophils # Seg Neutrophils # Man Monocytes # (Manual) PT INR Activated Clotting Time POC ABG pH POC ABG pCO2 POC ABG pO2 Sodium Potassium Chloride Carbon Dioxide BUN Creatinine Glucose POC Glucose 162 H 133 H 138 H Calcium Magnesium Direct Bilirubin AST ALT Alkaline Phosphatase Total Creatine Kinase CK-MB (CK-2) CK-MB (CK-2) Rel Index Troponin T C-Reactive Protein Total Protein Albumin Triglycerides Ur Specific [place] Urine WBC (Auto) Miscellaneous Test 04/29/17 04/29/17 04/29/17 05:15 12:55 17:21 WBC RBC Hgb Hct MCV MCH RDW Plt Count Lymph % (Auto) [place] % (Auto) Eos % (Auto) Baso % (Auto) Lymph # Baso # Seg Neutrophils % Lymphocytes % (Manual) Monocytes % (Manual) Nucleated RBC % Seg Neutrophils # Seg Neutrophils # Man Monocytes # (Manual) PT INR Activated Clotting Time POC ABG pH POC ABG pCO2 POC ABG pO2 Sodium Potassium Chloride Carbon Dioxide BUN Creatinine Glucose POC Glucose 135 H 127 H 138 H Calcium Magnesium Direct Bilirubin AST ALT Alkaline Phosphatase Total Creatine Kinase CK-MB (CK-2) CK-MB (CK-2) Rel Index Troponin T C-Reactive Protein Total Protein Albumin Triglycerides Ur Specific [place] Urine WBC (Auto) Miscellaneous Test 04/29/17 04/30/17 04/30/17 23:52 04:55 12:22 WBC RBC Hgb Hct MCV MCH RDW Plt Count Lymph % (Auto) [place] % (Auto) Eos % (Auto) Baso % (Auto) Lymph # Baso # Seg Neutrophils % Lymphocytes % (Manual) Monocytes % (Manual) Nucleated RBC % Seg Neutrophils # Seg Neutrophils # Man Monocytes # (Manual) PT INR Activated Clotting Time POC ABG pH POC ABG pCO2 POC ABG pO2 Sodium Potassium Chloride Carbon Dioxide BUN Creatinine Glucose POC Glucose 142 H 146 H 132 H Calcium Magnesium Direct Bilirubin AST ALT Alkaline Phosphatase Total Creatine Kinase CK-MB (CK-2) CK-MB (CK-2) Rel Index Troponin T C-Reactive Protein Total Protein Albumin Triglycerides Ur Specific [place] Urine WBC (Auto) Miscellaneous Test 04/30/17 04/30/17 04/30/17 14:25 17:47 18:20 WBC RBC Hgb Hct MCV MCH RDW Plt Count Lymph % (Auto) [place] % (Auto) Eos % (Auto) Baso % (Auto) Lymph # Baso # Seg Neutrophils % Lymphocytes % (Manual) Monocytes % (Manual) Nucleated RBC % Seg Neutrophils # Seg Neutrophils # Man Monocytes # (Manual) PT INR Activated Clotting Time POC ABG pH 7.551 H POC ABG pCO2 32.7 L POC ABG pO2 Sodium Potassium Chloride Carbon Dioxide BUN 21 H Creatinine 0.2 L Glucose 141 H POC Glucose 139 H Calcium Magnesium Direct Bilirubin AST ALT Alkaline Phosphatase Total Creatine Kinase CK-MB (CK-2) CK-MB (CK-2) Rel Index Troponin T C-Reactive Protein Total Protein Albumin Triglycerides Ur Specific [place] Urine WBC (Auto) Miscellaneous Test 05/01/17 05/01/17 05/01/17 01:26 05:30 05:30 WBC RBC 3.49 L Hgb 10.3 L Hct 31.9 L MCV MCH RDW Plt Count Lymph % (Auto) [place] % (Auto) 8.1 H Eos % (Auto) Baso % (Auto) Lymph # Baso # Seg Neutrophils % 71.3 H Lymphocytes % (Manual) Monocytes % (Manual) Nucleated RBC % Seg Neutrophils # Seg Neutrophils # Man Monocytes # (Manual) PT INR Activated Clotting Time POC ABG pH POC ABG pCO2 POC ABG pO2 Sodium 136 L Potassium Chloride 97.6 L Carbon Dioxide BUN Creatinine 0.2 L Glucose 123 H POC Glucose 116 H Calcium Magnesium Direct Bilirubin AST 71 H ALT 125 H Alkaline Phosphatase 158 H Total Creatine Kinase CK-MB (CK-2) CK-MB (CK-2) Rel Index Troponin T C-Reactive Protein Total Protein Albumin 2.6 L Triglycerides Ur Specific [place] Urine WBC (Auto) Miscellaneous Test 05/01/17 05/01/17 05/02/17 11:59 17:23 00:08 WBC RBC Hgb Hct MCV MCH RDW Plt Count Lymph % (Auto) [place] % (Auto) Eos % (Auto) Baso % (Auto) Lymph # Baso # Seg Neutrophils % Lymphocytes % (Manual) Monocytes % (Manual) Nucleated RBC % Seg Neutrophils # Seg Neutrophils # Man Monocytes # (Manual) PT INR Activated Clotting Time POC ABG pH POC ABG pCO2 POC ABG pO2 Sodium Potassium Chloride Carbon Dioxide BUN Creatinine Glucose POC Glucose 118 H 144 H 122 H Calcium Magnesium Direct Bilirubin AST ALT Alkaline Phosphatase Total Creatine Kinase CK-MB (CK-2) CK-MB (CK-2) Rel Index Troponin T C-Reactive Protein Total Protein Albumin Triglycerides Ur Specific [place] Urine WBC (Auto) Miscellaneous Test 05/02/17 05/02/17 05/02/17 05:50 11:21 17:48 WBC RBC Hgb Hct MCV MCH RDW Plt Count Lymph % (Auto) [place] % (Auto) Eos % (Auto) Baso % (Auto) Lymph # Baso # Seg Neutrophils % Lymphocytes % (Manual) Monocytes % (Manual) Nucleated RBC % Seg Neutrophils # Seg Neutrophils # Man Monocytes # (Manual) PT INR Activated Clotting Time POC ABG pH POC ABG pCO2 POC ABG pO2 Sodium Potassium Chloride Carbon Dioxide BUN Creatinine Glucose POC Glucose 120 H 121 H 140 H Calcium Magnesium Direct Bilirubin AST ALT Alkaline Phosphatase Total Creatine Kinase CK-MB (CK-2) CK-MB (CK-2) Rel Index Troponin T C-Reactive Protein Total Protein Albumin Triglycerides Ur Specific [place] Urine WBC (Auto) Miscellaneous Test 05/02/17 05/03/17 05/03/17 23:12 05:35 11:52 WBC RBC Hgb Hct MCV MCH RDW Plt Count Lymph % (Auto) [place] % (Auto) Eos % (Auto) Baso % (Auto) Lymph # Baso # Seg Neutrophils % Lymphocytes % (Manual) Monocytes % (Manual) Nucleated RBC % Seg Neutrophils # Seg Neutrophils # Man Monocytes # (Manual) PT INR Activated Clotting Time POC ABG pH POC ABG pCO2 POC ABG pO2 Sodium Potassium Chloride Carbon Dioxide BUN Creatinine Glucose POC Glucose 128 H 113 H 126 H Calcium Magnesium Direct Bilirubin AST ALT Alkaline Phosphatase Total Creatine Kinase CK-MB (CK-2) CK-MB (CK-2) Rel Index Troponin T C-Reactive Protein Total Protein Albumin Triglycerides Ur Specific [place] Urine WBC (Auto) Miscellaneous Test 05/03/17 05/03/17 05/04/17 17:29 23:26 04:55 WBC RBC Hgb Hct MCV MCH RDW Plt Count Lymph % (Auto) [place] % (Auto) Eos % (Auto) Baso % (Auto) Lymph # Baso # Seg Neutrophils % Lymphocytes % (Manual) Monocytes % (Manual) Nucleated RBC % Seg Neutrophils # Seg Neutrophils # Man Monocytes # (Manual) PT INR Activated Clotting Time POC ABG pH POC ABG pCO2 POC ABG pO2 Sodium Potassium Chloride Carbon Dioxide BUN Creatinine Glucose POC Glucose 141 H 129 H 126 H Calcium Magnesium Direct Bilirubin AST ALT Alkaline Phosphatase Total Creatine Kinase CK-MB (CK-2) CK-MB (CK-2) Rel Index Troponin T C-Reactive Protein Total Protein Albumin Triglycerides Ur Specific [place] Urine WBC (Auto) Miscellaneous Test 05/04/17 05/04/17 05/05/17 12:09 17:46 00:06 WBC RBC Hgb Hct MCV MCH RDW Plt Count Lymph % (Auto) [place] % (Auto) Eos % (Auto) Baso % (Auto) Lymph # Baso # Seg Neutrophils % Lymphocytes % (Manual) Monocytes % (Manual) Nucleated RBC % Seg Neutrophils # Seg Neutrophils # Man Monocytes # (Manual) PT INR Activated Clotting Time POC ABG pH POC ABG pCO2 POC ABG pO2 Sodium Potassium Chloride Carbon Dioxide BUN Creatinine Glucose POC Glucose 125 H 125 H 110 H Calcium Magnesium Direct Bilirubin AST ALT Alkaline Phosphatase Total Creatine Kinase CK-MB (CK-2) CK-MB (CK-2) Rel Index Troponin T C-Reactive Protein Total Protein Albumin Triglycerides Ur Specific [place] Urine WBC (Auto) Miscellaneous Test 05/05/17 05/05/17 05/05/17 05:48 11:41 16:19 WBC RBC Hgb Hct MCV MCH RDW Plt Count Lymph % (Auto) [place] % (Auto) Eos % (Auto) Baso % (Auto) Lymph # Baso # Seg Neutrophils % Lymphocytes % (Manual) Monocytes % (Manual) Nucleated RBC % Seg Neutrophils # Seg Neutrophils # Man Monocytes # (Manual) PT INR Activated Clotting Time POC ABG pH POC ABG pCO2 POC ABG pO2 Sodium Potassium Chloride Carbon Dioxide BUN Creatinine Glucose POC Glucose 124 H 122 H 120 H Calcium Magnesium Direct Bilirubin AST ALT Alkaline Phosphatase Total Creatine Kinase CK-MB (CK-2) CK-MB (CK-2) Rel Index Troponin T C-Reactive Protein Total Protein Albumin Triglycerides Ur Specific [place] Urine WBC (Auto) Miscellaneous Test 05/06/17 05/06/17 05/06/17 00:16 05:47 11:42 WBC RBC Hgb Hct MCV MCH RDW Plt Count Lymph % (Auto) [place] % (Auto) Eos % (Auto) Baso % (Auto) Lymph # Baso # Seg Neutrophils % Lymphocytes % (Manual) Monocytes % (Manual) Nucleated RBC % Seg Neutrophils # Seg Neutrophils # Man Monocytes # (Manual) PT INR Activated Clotting Time POC ABG pH POC ABG pCO2 POC ABG pO2 Sodium Potassium Chloride Carbon Dioxide BUN Creatinine Glucose POC Glucose 110 H 142 H 120 H Calcium Magnesium Direct Bilirubin AST ALT Alkaline Phosphatase Total Creatine Kinase CK-MB (CK-2) CK-MB (CK-2) Rel Index Troponin T C-Reactive Protein Total Protein Albumin Triglycerides Ur Specific [place] Urine WBC (Auto) Miscellaneous Test 05/06/17 05/07/17 05/07/17 17:46 00:07 05:28 WBC RBC Hgb Hct MCV MCH RDW Plt Count Lymph % (Auto) [place] % (Auto) Eos % (Auto) Baso % (Auto) Lymph # Baso # Seg Neutrophils % Lymphocytes % (Manual) Monocytes % (Manual) Nucleated RBC % Seg Neutrophils # Seg Neutrophils # Man Monocytes # (Manual) PT INR Activated Clotting Time POC ABG pH POC ABG pCO2 POC ABG pO2 Sodium Potassium Chloride Carbon Dioxide BUN Creatinine Glucose POC Glucose 127 H 145 H 124 H Calcium Magnesium Direct Bilirubin AST ALT Alkaline Phosphatase Total Creatine Kinase CK-MB (CK-2) CK-MB (CK-2) Rel Index Troponin T C-Reactive Protein Total Protein Albumin Triglycerides Ur Specific [place] Urine WBC (Auto) Miscellaneous Test 05/07/17 05/07/17 05/08/17 11:17 17:14 00:03 WBC RBC Hgb Hct MCV MCH RDW Plt Count Lymph % (Auto) [place] % (Auto) Eos % (Auto) Baso % (Auto) Lymph # Baso # Seg Neutrophils % Lymphocytes % (Manual) Monocytes % (Manual) Nucleated RBC % Seg Neutrophils # Seg Neutrophils # Man Monocytes # (Manual) PT INR Activated Clotting Time POC ABG pH POC ABG pCO2 POC ABG pO2 Sodium Potassium Chloride Carbon Dioxide BUN Creatinine Glucose POC Glucose 144 H 125 H 122 H Calcium Magnesium Direct Bilirubin AST ALT Alkaline Phosphatase Total Creatine Kinase CK-MB (CK-2) CK-MB (CK-2) Rel Index Troponin T C-Reactive Protein Total Protein Albumin Triglycerides Ur Specific [place] Urine WBC (Auto) Miscellaneous Test 05/08/17 05/08/17 05/08/17 05:43 12:07 18:02 WBC RBC Hgb Hct MCV MCH RDW Plt Count Lymph % (Auto) [place] % (Auto) Eos % (Auto) Baso % (Auto) Lymph # Baso # Seg Neutrophils % Lymphocytes % (Manual) Monocytes % (Manual) Nucleated RBC % Seg Neutrophils # Seg Neutrophils # Man Monocytes # (Manual) PT INR Activated Clotting Time POC ABG pH POC ABG pCO2 POC ABG pO2 Sodium Potassium Chloride Carbon Dioxide BUN Creatinine Glucose POC Glucose 117 H 114 H 129 H Calcium Magnesium Direct Bilirubin AST ALT Alkaline Phosphatase Total Creatine Kinase CK-MB (CK-2) CK-MB (CK-2) Rel Index Troponin T C-Reactive Protein Total Protein Albumin Triglycerides Ur Specific [place] Urine WBC (Auto) Miscellaneous Test 05/08/17 05/09/17 05/09/17 23:53 04:19 05:14 WBC RBC Hgb Hct MCV MCH RDW Plt Count Lymph % (Auto) [place] % (Auto) Eos % (Auto) Baso % (Auto) Lymph # Baso # Seg Neutrophils % Lymphocytes % (Manual) Monocytes % (Manual) Nucleated RBC % Seg Neutrophils # Seg Neutrophils # Man Monocytes # (Manual) PT INR Activated Clotting Time POC ABG pH 7.524 H POC ABG pCO2 34.7 L POC ABG pO2 107 H Sodium Potassium Chloride Carbon Dioxide BUN Creatinine Glucose POC Glucose 125 H 118 H Calcium Magnesium Direct Bilirubin AST ALT Alkaline Phosphatase Total Creatine Kinase CK-MB (CK-2) CK-MB (CK-2) Rel Index Troponin T C-Reactive Protein Total Protein Albumin Triglycerides Ur Specific [place] Urine WBC (Auto) Miscellaneous Test 05/10/17 05/11/17 05/11/17 23:54 05:48 23:50 WBC RBC Hgb Hct MCV MCH RDW Plt Count Lymph % (Auto) [place] % (Auto) Eos % (Auto) Baso % (Auto) Lymph # Baso # Seg Neutrophils % Lymphocytes % (Manual) Monocytes % (Manual) Nucleated RBC % Seg Neutrophils # Seg Neutrophils # Man Monocytes # (Manual) PT INR Activated Clotting Time POC ABG pH POC ABG pCO2 POC ABG pO2 Sodium Potassium Chloride Carbon Dioxide BUN Creatinine Glucose POC Glucose 126 H 137 H 130 H Calcium Magnesium Direct Bilirubin AST ALT Alkaline Phosphatase Total Creatine Kinase CK-MB (CK-2) CK-MB (CK-2) Rel Index Troponin T C-Reactive Protein Total Protein Albumin Triglycerides Ur Specific [place] Urine WBC (Auto) Miscellaneous Test 05/12/17 05/12/17 05/12/17 05:48 11:33 18:00 WBC RBC Hgb Hct MCV MCH RDW Plt Count Lymph % (Auto) [place] % (Auto) Eos % (Auto) Baso % (Auto) Lymph # Baso # Seg Neutrophils % Lymphocytes % (Manual) Monocytes % (Manual) Nucleated RBC % Seg Neutrophils # Seg Neutrophils # Man Monocytes # (Manual) PT INR Activated Clotting Time POC ABG pH POC ABG pCO2 POC ABG pO2 Sodium Potassium Chloride Carbon Dioxide BUN Creatinine Glucose POC Glucose 126 H 116 H 131 H Calcium Magnesium Direct Bilirubin AST ALT Alkaline Phosphatase Total Creatine Kinase CK-MB (CK-2) CK-MB (CK-2) Rel Index Troponin T C-Reactive Protein Total Protein Albumin Triglycerides Ur Specific [place] Urine WBC (Auto) Miscellaneous Test 05/14/17 05/15/17 05/15/17 11:45 11:27 17:42 WBC RBC Hgb Hct MCV MCH RDW Plt Count Lymph % (Auto) [place] % (Auto) Eos % (Auto) Baso % (Auto) Lymph # Baso # Seg Neutrophils % Lymphocytes % (Manual) Monocytes % (Manual) Nucleated RBC % Seg Neutrophils # Seg Neutrophils # Man Monocytes # (Manual) PT INR Activated Clotting Time POC ABG pH POC ABG pCO2 POC ABG pO2 Sodium Potassium Chloride Carbon Dioxide BUN Creatinine Glucose POC Glucose 123 H 129 H 125 H Calcium Magnesium Direct Bilirubin AST ALT Alkaline Phosphatase Total Creatine Kinase CK-MB (CK-2) CK-MB (CK-2) Rel Index Troponin T C-Reactive Protein Total Protein Albumin Triglycerides Ur Specific [place] Urine WBC (Auto) Miscellaneous Test 05/16/17 05/16/17 05/17/17 00:29 06:50 03:45 WBC RBC Hgb 11.7 L Hct 34.8 L MCV MCH RDW 15.5 H Plt Count Lymph % (Auto) [place] % (Auto) 7.7 H Eos % (Auto) Baso % (Auto) Lymph # Baso # Seg Neutrophils % 73.7 H Lymphocytes % (Manual) Monocytes % (Manual) Nucleated RBC % Seg Neutrophils # Seg Neutrophils # Man Monocytes # (Manual) PT INR Activated Clotting Time POC ABG pH POC ABG pCO2 POC ABG pO2 Sodium Potassium Chloride Carbon Dioxide BUN Creatinine Glucose POC Glucose 141 H 138 H Calcium Magnesium Direct Bilirubin AST ALT Alkaline Phosphatase Total Creatine Kinase CK-MB (CK-2) CK-MB (CK-2) Rel Index Troponin T C-Reactive Protein Total Protein Albumin Triglycerides Ur Specific [place] Urine WBC (Auto) Miscellaneous Test 05/17/17 05/20/17 05/23/17 03:45 17:31 23:09 WBC RBC Hgb Hct MCV MCH RDW Plt Count Lymph % (Auto) [place] % (Auto) Eos % (Auto) Baso % (Auto) Lymph # Baso # Seg Neutrophils % Lymphocytes % (Manual) Monocytes % (Manual) Nucleated RBC % Seg Neutrophils # Seg Neutrophils # Man Monocytes # (Manual) PT INR Activated Clotting Time POC ABG pH POC ABG pCO2 POC ABG pO2 Sodium Potassium Chloride Carbon Dioxide BUN Creatinine 0.2 L Glucose 131 H POC Glucose 116 H 122 H Calcium Magnesium Direct Bilirubin AST ALT Alkaline Phosphatase Total Creatine Kinase CK-MB (CK-2) CK-MB (CK-2) Rel Index Troponin T C-Reactive Protein Total Protein Albumin Triglycerides Ur Specific [place] Urine WBC (Auto) Miscellaneous Test 05/24/17 05/26/17 05/27/17 05:37 05:23 01:16 WBC RBC Hgb Hct MCV MCH RDW Plt Count Lymph % (Auto) [place] % (Auto) Eos % (Auto) Baso % (Auto) Lymph # Baso # Seg Neutrophils % Lymphocytes % (Manual) Monocytes % (Manual) Nucleated RBC % Seg Neutrophils # Seg Neutrophils # Man Monocytes # (Manual) PT INR Activated Clotting Time POC ABG pH POC ABG pCO2 POC ABG pO2 Sodium Potassium Chloride Carbon Dioxide BUN Creatinine Glucose POC Glucose 139 H 108 H 126 H Calcium Magnesium Direct Bilirubin AST ALT Alkaline Phosphatase Total Creatine Kinase CK-MB (CK-2) CK-MB (CK-2) Rel Index Troponin T C-Reactive Protein Total Protein Albumin Triglycerides Ur Specific [place] Urine WBC (Auto) Miscellaneous Test 05/27/17 05/27/17 05/29/17 05:33 21:49 04:37 WBC RBC Hgb Hct MCV MCH RDW 15.5 H Plt Count Lymph % (Auto) [place] % (Auto) Eos % (Auto) Baso % (Auto) Lymph # Baso # Seg Neutrophils % Lymphocytes % (Manual) Monocytes % (Manual) Nucleated RBC % Seg Neutrophils # Seg Neutrophils # Man Monocytes # (Manual) PT INR Activated Clotting Time POC ABG pH POC ABG pCO2 POC ABG pO2 Sodium Potassium Chloride Carbon Dioxide BUN Creatinine Glucose POC Glucose 129 H 110 H Calcium Magnesium Direct Bilirubin AST ALT Alkaline Phosphatase Total Creatine Kinase CK-MB (CK-2) CK-MB (CK-2) Rel Index Troponin T C-Reactive Protein Total Protein Albumin Triglycerides Ur Specific [place] Urine WBC (Auto) Miscellaneous Test 05/29/17 06/01/17 06/08/17 04:37 05:28 22:45 WBC RBC Hgb Hct MCV MCH RDW Plt Count Lymph % (Auto) [place] % (Auto) Eos % (Auto) Baso % (Auto) Lymph # Baso # Seg Neutrophils % Lymphocytes % (Manual) Monocytes % (Manual) Nucleated RBC % Seg Neutrophils # Seg Neutrophils # Man Monocytes # (Manual) PT INR Activated Clotting Time POC ABG pH POC ABG pCO2 POC ABG pO2 Sodium Potassium Chloride 97.6 L Carbon Dioxide BUN Creatinine 0.2 L Glucose 121 H POC Glucose 133 H 110 H Calcium Magnesium Direct Bilirubin AST ALT Alkaline Phosphatase Total Creatine Kinase CK-MB (CK-2) CK-MB (CK-2) Rel Index Troponin T C-Reactive Protein Total Protein Albumin Triglycerides Ur Specific [place] Urine WBC (Auto) Miscellaneous Test 06/09/17 06/09/17 06/09/17 14:50 18:29 22:12 WBC RBC Hgb Hct MCV MCH RDW Plt Count Lymph % (Auto) [place] % (Auto) Eos % (Auto) Baso % (Auto) Lymph # Baso # Seg Neutrophils % Lymphocytes % (Manual) Monocytes % (Manual) Nucleated RBC % Seg Neutrophils # Seg Neutrophils # Man Monocytes # (Manual) PT INR Activated Clotting Time POC ABG pH 7.496 H POC ABG pCO2 33.7 L POC ABG pO2 Sodium Potassium Chloride Carbon Dioxide BUN Creatinine Glucose POC Glucose 121 H 109 H Calcium Magnesium Direct Bilirubin AST ALT Alkaline Phosphatase Total Creatine Kinase CK-MB (CK-2) CK-MB (CK-2) Rel Index Troponin T C-Reactive Protein Total Protein Albumin Triglycerides Ur Specific [place] Urine WBC (Auto) Miscellaneous Test 06/10/17 06/10/17 06/10/17 05:05 13:00 18:11 WBC RBC Hgb Hct MCV MCH RDW Plt Count Lymph % (Auto) [place] % (Auto) Eos % (Auto) Baso % (Auto) Lymph # Baso # Seg Neutrophils % Lymphocytes % (Manual) Monocytes % (Manual) Nucleated RBC % Seg Neutrophils # Seg Neutrophils # Man Monocytes # (Manual) PT INR Activated Clotting Time POC ABG pH POC ABG pCO2 POC ABG pO2 Sodium Potassium Chloride Carbon Dioxide BUN Creatinine Glucose POC Glucose 123 H 130 H 117 H Calcium Magnesium Direct Bilirubin AST ALT Alkaline Phosphatase Total Creatine Kinase CK-MB (CK-2) CK-MB (CK-2) Rel Index Troponin T C-Reactive Protein Total Protein Albumin Triglycerides Ur Specific [place] Urine WBC (Auto) Miscellaneous Test 06/10/17 06/11/17 06/12/17 21:22 16:02 05:10 WBC RBC Hgb Hct MCV MCH RDW 15.5 H Plt Count Lymph % (Auto) [place] % (Auto) 8.2 H Eos % (Auto) Baso % (Auto) Lymph # Baso # Seg Neutrophils % Lymphocytes % (Manual) Monocytes % (Manual) Nucleated RBC % Seg Neutrophils # Seg Neutrophils # Man Monocytes # (Manual) PT INR Activated Clotting Time POC ABG pH POC ABG pCO2 POC ABG pO2 Sodium Potassium Chloride Carbon Dioxide BUN Creatinine Glucose POC Glucose 113 H 125 H Calcium Magnesium Direct Bilirubin AST ALT Alkaline Phosphatase Total Creatine Kinase CK-MB (CK-2) CK-MB (CK-2) Rel Index Troponin T C-Reactive Protein Total Protein Albumin Triglycerides Ur Specific [place] Urine WBC (Auto) Miscellaneous Test 06/12/17 06/12/17 06/12/17 05:10 11:37 17:25 WBC RBC Hgb Hct MCV MCH RDW Plt Count Lymph % (Auto) [place] % (Auto) Eos % (Auto) Baso % (Auto) Lymph # Baso # Seg Neutrophils % Lymphocytes % (Manual) Monocytes % (Manual) Nucleated RBC % Seg Neutrophils # Seg Neutrophils # Man Monocytes # (Manual) PT INR Activated Clotting Time POC ABG pH POC ABG pCO2 POC ABG pO2 Sodium Potassium Chloride Carbon Dioxide BUN Creatinine 0.3 L Glucose 134 H POC Glucose 142 H 115 H Calcium Magnesium Direct Bilirubin AST ALT Alkaline Phosphatase Total Creatine Kinase CK-MB (CK-2) CK-MB (CK-2) Rel Index Troponin T C-Reactive Protein Total Protein Albumin Triglycerides Ur Specific [place] Urine WBC (Auto) Miscellaneous Test 06/13/17 06/13/17 06:54 11:26 WBC RBC Hgb Hct MCV MCH RDW Plt Count Lymph % (Auto) [place] % (Auto) Eos % (Auto) Baso % (Auto) Lymph # Baso # Seg Neutrophils % Lymphocytes % (Manual) Monocytes % (Manual) Nucleated RBC % Seg Neutrophils # Seg Neutrophils # Man Monocytes # (Manual) PT INR Activated Clotting Time POC ABG pH POC ABG pCO2 POC ABG pO2 Sodium Potassium Chloride Carbon Dioxide BUN Creatinine Glucose POC Glucose 141 H 112 H Calcium Magnesium Direct Bilirubin AST ALT Alkaline Phosphatase Total Creatine Kinase CK-MB (CK-2) CK-MB (CK-2) Rel Index Troponin T C-Reactive Protein Total Protein Albumin Triglycerides Ur Specific [place] Urine WBC (Auto) Miscellaneous Test Chest x-ray: report reviewed, image reviewed
[2017-06-13] MEDS: TRANSDERM-SCOP TD SCH (16:13)
--- NOTE | 2017-06-13 16:27 | Progress Note ---
Assessment and Plan Assessment and plan: The patient is a 46-year-old male admitted to the hospital status post cardiac arrest. Unfortunately did not recover her mental status has remained persistently resistant state. Has been successfully weaned off the ventilator and currently is on T piece. Anoxic encephalopathy STEMI, status post cardiac cath and stent placement Respiratory failure on trach on 4L of oxygen Aspiration pneumonia treated with Iv antibiotics DVT; on eliquis - No change from baseline - No Family member in the room to discuss a plan of care Disposition - Continue follow up with families if they are able to take him home. History Interval history: Patient seen and examined, currently on T piece unresponsive Hospitalist Physical - Physical exam Narrative exam: General appearance: Present: no acute distress, well-nourished, other ( tracheostomy on T piece) - EENT Eyes: Present: PERRL (spontaneous opening of eyes) marked temporal wasting - Neck Neck: Present: supple, other (tracheostomy) T piece - Respiratory Respiratory effort: normal Respiratory: bilateral: diminished, rhonchi - Cardiovascular Rhythm: regular Heart Sounds: Present: S1 & S2 - Extremities Extremities: no ischemia Extremity abnormal: edema (trace edema) - Abdominal General gastrointestinal: soft, non-tender, non-distended, normal bowel sounds, other (PEG in place and functional) - Integumentary Integumentary: Present: clear, warm - Psychiatric Psychiatric: other (noncommunicative) - Neurologic Neurologic: other (unresponsive) - Constitutional Vitals: Temp Pulse Resp BP Pulse Ox 98.7 F 81 20 96/59 100 06/13/17 04:55 06/13/17 10:00 06/13/17 09:38 06/13/17 09:25 06/13/17 09:38 General appearance: Present: other (tracheostomy on vent) Results - Labs CBC & Chem 7: 06/12/17 05:10 06/12/17 05:10 Labs: Laboratory Last Values WBC 7.7 K/mm3 (4.5-11.0) 06/12/17 05:10 RBC 4.23 M/mm3 (3.65-5.03) 06/12/17 05:10 Hgb 12.5 gm/dl (11.8-15.2) 06/12/17 05:10 Hct 37.3 % (35.5-45.6) 06/12/17 05:10 MCV 88 fl (84-94) 06/12/17 05:10 MCH 30 pg (28-32) 06/12/17 05:10 MCHC 34 % (32-34) 06/12/17 05:10 RDW 15.5 % (13.2-15.2) H 06/12/17 05:10 Plt Count 227 K/mm3 (140-440) 06/12/17 05:10 Lymph % (Auto) 20.8 % (13.4-35.0) 06/12/17 05:10 [place] % (Auto) 8.2 % (0.0-7.3) H 06/12/17 05:10 Eos % (Auto) 3.3 % (0.0-4.3) 06/12/17 05:10 Baso % (Auto) 0.4 % (0.0-1.8) 06/12/17 05:10 Lymph # 1.6 K/mm3 (1.2-5.4) 06/12/17 05:10 [place] # 0.6 K/mm3 (0.0-0.8) 06/12/17 05:10 Eos # 0.3 K/mm3 (0.0-0.4) 06/12/17 05:10 Baso # 0.0 K/mm3 (0.0-0.1) 06/12/17 05:10 Add Manual Diff Complete 03/30/17 03:50 Total Counted 100 03/30/17 03:50 Seg Neutrophils % 67.3 % (40.0-70.0) 06/12/17 05:10 Seg Neuts % (Manual) 65.0 % (40.0-70.0) 03/30/17 03:50 Band Neutrophils % 17.0 % 03/30/17 03:50 Lymphocytes % (Manual) 7.0 % (13.4-35.0) L 03/30/17 03:50 Reactive Lymphs % (Man) 0 % 03/30/17 03:50 Monocytes % (Manual) 7.0 % (0.0-7.3) 03/30/17 03:50 Eosinophils % (Manual) 0 % (0.0-4.3) 03/30/17 03:50 Basophils % (Manual) 0 % (0.0-1.8) 03/30/17 03:50 Metamyelocytes % 4.0 % 03/30/17 03:50 Myelocytes % 0 % 03/30/17 03:50 Promyelocytes % 0 % 03/30/17 03:50 Blast Cells % 0 % 03/30/17 03:50 Nucleated RBC % Not Reportable 03/30/17 03:50 Seg Neutrophils # 5.1 K/mm3 (1.8-7.7) 06/12/17 05:10 Seg Neutrophils # Man 12.7 K/mm3 (1.8-7.7) H 03/30/17 03:50 Band Neutrophils # 3.3 K/mm3 03/30/17 03:50 Lymphocytes # (Manual) 1.4 K/mm3 (1.2-5.4) 03/30/17 03:50 Abs React Lymphs (Man) 0.0 K/mm3 03/30/17 03:50 Monocytes # (Manual) 1.4 K/mm3 (0.0-0.8) H 03/30/17 03:50 Eosinophils # (Manual) 0.0 K/mm3 (0.0-0.4) 03/30/17 03:50 Basophils # (Manual) 0.0 K/mm3 (0.0-0.1) 03/30/17 03:50 Metamyelocytes # 0.8 K/mm3 03/30/17 03:50 Myelocytes # 0.0 K/mm3 03/30/17 03:50 Promyelocytes # 0.0 K/mm3 03/30/17 03:50 Blast Cells # 0.0 K/mm3 03/30/17 03:50 WBC Morphology Not Reportable 03/30/17 03:50 Hypersegmented Neuts Not Reportable 03/30/17 03:50 Hyposegmented Neuts Not Reportable 03/30/17 03:50 Hypogranular Neuts Not Reportable 03/30/17 03:50 Smudge Cells Not Reportable 03/30/17 03:50 Toxic Granulation Not Reportable 03/30/17 03:50 Toxic Vacuolation Not Reportable 03/30/17 03:50 Dohle Bodies Not Reportable 03/30/17 03:50 [place]-Huet Anomaly Not Reportable 03/30/17 03:50 Sherry Rods Not Reportable 03/30/17 03:50 Platelet Estimate Appears normal 03/30/17 03:50 Clumped Platelets Not Reportable 03/30/17 03:50 Plt Clumps, EDTA Not Reportable 03/30/17 03:50 Large Platelets Not Reportable 03/30/17 03:50 Giant Platelets Not Reportable 03/30/17 03:50 Platelet Satelliting Not Reportable 03/30/17 03:50 Plt Morphology Comment Not Reportable 03/30/17 03:50 RBC Morphology Not Reportable 03/30/17 03:50 Dimorphic RBCs Not Reportable 03/30/17 03:50 Polychromasia Not Reportable 03/30/17 03:50 Hypochromasia Not Reportable 03/30/17 03:50 Poikilocytosis Not Reportable 03/30/17 03:50 Anisocytosis Few 03/30/17 03:50 Microcytosis Not Reportable 03/30/17 03:50 Macrocytosis Not Reportable 03/30/17 03:50 Spherocytes Not Reportable 03/30/17 03:50 Pappenheimer Bodies Not Reportable 03/30/17 03:50 Sickle Cells Not Reportable 03/30/17 03:50 Target Cells Not Reportable 03/30/17 03:50 Tear Drop Cells Not Reportable 03/30/17 03:50 Ovalocytes Not Reportable 03/30/17 03:50 Helmet Cells Not Reportable 03/30/17 03:50 [place] Bodies Not Reportable 03/30/17 03:50 [place] Rings Not Reportable 03/30/17 03:50 [place] Cells Not Reportable 03/30/17 03:50 Bite Cells Not Reportable 03/30/17 03:50 Crenated Cell Not Reportable 03/30/17 03:50 Elliptocytes Not Reportable 03/30/17 03:50 Acanthocytes (Spur) Not Reportable 03/30/17 03:50 Rouleaux Not Reportable 03/30/17 03:50 Hemoglobin C Crystals Not Reportable 03/30/17 03:50 Schistocytes Not Reportable 03/30/17 03:50 Malaria parasites Not Reportable 03/30/17 03:50 [place] Bodies Not Reportable 03/30/17 03:50 Hem Pathologist Commnt No 03/30/17 03:50 PT 14.9 Sec. (12.2-14.9) 04/10/17 04:16 INR 1.11 (0.87-1.13) 04/10/17 04:16 APTT 27.8 Sec. (24.2-36.6) 04/10/17 04:16 Activated Clotting Time 92 (74-137) 03/29/17 17:47 POC ABG pH 7.496 (7.35-7.45) H 06/09/17 18:29 POC ABG pCO2 33.7 (35-45) L 06/09/17 18:29 POC ABG pO2 103 (80-105) 06/09/17 18:29 POC ABG HCO3 26.0 06/09/17 18:29 POC ABG Total CO2 27 06/09/17 18:29 POC ABG O2 Sat 98 06/09/17 18:29 POC ABG Base Excess 3 06/09/17 18:29 FiO2 28 % 06/09/17 18:29 Sodium 141 mmol/L (137-145) 06/12/17 05:10 Potassium 3.7 mmol/L (3.6-5.0) 06/12/17 05:10 Chloride 102.5 mmol/L (98-107) 06/12/17 05:10 Carbon Dioxide 25 mmol/L (22-30) 06/12/17 05:10 Anion Gap 17 mmol/L 06/12/17 05:10 BUN 15 mg/dL (9-20) 06/12/17 05:10 Creatinine 0.3 mg/dL (0.8-1.5) L 06/12/17 05:10 Estimated GFR > 60 ml/min 06/12/17 05:10 BUN/Creatinine Ratio 50 % 06/12/17 05:10 Glucose 134 mg/dL (75-100) H 06/12/17 05:10 POC Glucose 112 (70-105) H 06/13/17 11:26 Calcium 9.5 mg/dL (8.4-10.2) 06/12/17 05:10 Phosphorus 3.50 mg/dL (2.5-4.5) 04/13/17 04:45 Magnesium 1.80 mg/dL (1.7-2.3) 05/01/17 05:30 Total Bilirubin 0.60 mg/dL (0.1-1.2) 05/01/17 05:30 Direct Bilirubin < 0.2 mg/dL (0-0.2) 04/27/17 05:40 Indirect Bilirubin 0.3 mg/dL 04/25/17 04:51 AST 71 units/L (5-40) H 05/01/17 05:30 ALT 125 units/L (7-56) H 05/01/17 05:30 Alkaline Phosphatase 158 units/L (35-129) H 05/01/17 05:30 Total Creatine Kinase 1404 units/L (55-170) H 04/12/17 21:36 CK-MB (CK-2) 8.0 ng/mL (0.0-4.0) H 04/12/17 21:36 CK-MB (CK-2) Rel Index 0.5 (0-4) 04/12/17 21:36 Troponin T 0.767 ng/mL (0.00-0.029) H* 04/12/17 21:36 C-Reactive Protein 21.80 mg/dL (0.00-1.30) H 03/30/17 16:04 Total Protein 6.7 g/dL (6.3-8.2) 05/01/17 05:30 Albumin 2.6 g/dL (3.9-5) L 05/01/17 05:30 Albumin/Globulin Ratio 0.6 % 05/01/17 05:30 Triglycerides 151 mg/dL (2-149) H 04/01/17 04:29 Cholesterol 164 mg/dL (50-199) 03/29/17 19:52 LDL Cholesterol Direct 81 mg/dL (50-130) 03/29/17 19:52 HDL Cholesterol 44 mg/dL (40-59) 03/29/17 19:52 Cholesterol/HDL Ratio 3.72 % 03/29/17 19:52 Urine Color [place] (Yellow) 04/21/17 22:00 Urine Turbidity Clear (Clear) 04/21/17 22:00 Urine pH 5.0 (5.0-7.0) 04/21/17 22:00 Ur Specific [place] 1.029 (1.003-1.030) 04/21/17 22:00 Urine Protein 30 mg/dl mg/dL (Negative) 04/21/17 22:00 Urine Glucose (UA) Neg mg/dL (Negative) 04/21/17 22:00 Urine Ketones Neg mg/dL (Negative) 04/21/17 22:00 Urine Blood Mod (Negative) 04/21/17 22:00 Urine Nitrite Neg (Negative) 04/21/17 22:00 Urine Bilirubin Neg (Negative) 04/21/17 22:00 Urine Urobilinogen 4.0 mg/dL (<2.0) 04/21/17 22:00 Ur Leukocyte Esterase Neg (Negative) 04/21/17 22:00 Urine WBC (Auto) 10.0 /HPF (0.0-6.0) H 04/21/17 22:00 Urine RBC (Auto) 44.0 /HPF (0.0-6.0) 04/21/17 22:00 U Epithel Cells (Auto) < 1.0 /HPF (0-13.0) 04/21/17 22:00 Amorphous Crystals 1+ 03/30/17 09:45 Urine Mucus 3+ /HPF 04/21/17 22:00 Urine Opiates Screen Presumptive negative 03/30/17 09:45 Urine Methadone Screen Presumptive negative 03/30/17 09:45 Ur Barbiturates Screen Presumptive negative 03/30/17 09:45 Ur Phencyclidine Scrn Presumptive negative 03/30/17 09:45 Ur Amphetamines Screen Presumptive positive 03/30/17 09:45 U Benzodiazepines Scrn Presumptive positive 03/30/17 09:45 Urine Cocaine Screen Presumptive negative 03/30/17 09:45 U Marijuana (THC) Screen Presumptive negative 03/30/17 09:45 Drugs of Abuse Note Disclamer 03/30/17 09:45 Miscellaneous Test Flexitest 1 H 04/25/17 07:07 Blood Type O POSITIVE 03/29/17 11:35 Antibody Screen Negative 03/29/17 11:35
--- NOTE | 2017-06-14 11:46 | Progress Note ---
Assessment and Plan Assessment and plan: The patient is a 46-year-old male admitted to the hospital status post cardiac arrest. Unfortunately did not recover her mental status has remained persistently resistant state. Has been successfully weaned off the ventilator and currently is on T piece. Anoxic encephalopathy STEMI, status post cardiac cath and stent placement Respiratory failure on trach on 4L of oxygen Aspiration pneumonia treated with Iv antibiotics DVT; on eliquis - No change from baseline - No Family member in the room to discuss a plan of care Disposition - Continue follow up with families if they are able to take him home. History Interval history: Patient seen and examined, currently on T piece unresponsive. No family at bedside, discussed with case management Hospitalist Physical - Physical exam Narrative exam: General appearance: Present: no acute distress, well-nourished, other ( tracheostomy on T piece) - EENT Eyes: Present: PERRL (spontaneous opening of eyes) marked temporal wasting - Neck Neck: Present: supple, other (tracheostomy) T piece - Respiratory Respiratory effort: normal Respiratory: bilateral: diminished, rhonchi - Cardiovascular Rhythm: regular Heart Sounds: Present: S1 & S2 - Extremities Extremities: no ischemia Extremity abnormal: edema (trace edema) - Abdominal General gastrointestinal: soft, non-tender, non-distended, normal bowel sounds, other (PEG in place and functional) - Integumentary Integumentary: Present: clear, warm - Psychiatric Psychiatric: other (noncommunicative) - Neurologic Neurologic: other (unresponsive) - Constitutional Vitals: Temp Pulse Resp BP Pulse Ox 98.3 F 70 18 108/60 93 06/14/17 04:51 06/14/17 08:00 06/14/17 04:51 06/14/17 04:51 06/14/17 04:51 General appearance: Present: other (tracheostomy on vent) Results - Labs CBC & Chem 7: 06/12/17 05:10 06/12/17 05:10 Labs: Laboratory Last Values WBC 7.7 K/mm3 (4.5-11.0) 06/12/17 05:10 RBC 4.23 M/mm3 (3.65-5.03) 06/12/17 05:10 Hgb 12.5 gm/dl (11.8-15.2) 06/12/17 05:10 Hct 37.3 % (35.5-45.6) 06/12/17 05:10 MCV 88 fl (84-94) 06/12/17 05:10 MCH 30 pg (28-32) 06/12/17 05:10 MCHC 34 % (32-34) 06/12/17 05:10 RDW 15.5 % (13.2-15.2) H 06/12/17 05:10 Plt Count 227 K/mm3 (140-440) 06/12/17 05:10 Lymph % (Auto) 20.8 % (13.4-35.0) 06/12/17 05:10 [place] % (Auto) 8.2 % (0.0-7.3) H 06/12/17 05:10 Eos % (Auto) 3.3 % (0.0-4.3) 06/12/17 05:10 Baso % (Auto) 0.4 % (0.0-1.8) 06/12/17 05:10 Lymph # 1.6 K/mm3 (1.2-5.4) 06/12/17 05:10 Gates # 0.6 K/mm3 (0.0-0.8) 06/12/17 05:10 Eos # 0.3 K/mm3 (0.0-0.4) 06/12/17 05:10 Baso # 0.0 K/mm3 (0.0-0.1) 06/12/17 05:10 Add Manual Diff Complete 03/30/17 03:50 Total Counted 100 03/30/17 03:50 Seg Neutrophils % 67.3 % (40.0-70.0) 06/12/17 05:10 Seg Neuts % (Manual) 65.0 % (40.0-70.0) 03/30/17 03:50 Band Neutrophils % 17.0 % 03/30/17 03:50 Lymphocytes % (Manual) 7.0 % (13.4-35.0) L 03/30/17 03:50 Reactive Lymphs % (Man) 0 % 03/30/17 03:50 Monocytes % (Manual) 7.0 % (0.0-7.3) 03/30/17 03:50 Eosinophils % (Manual) 0 % (0.0-4.3) 03/30/17 03:50 Basophils % (Manual) 0 % (0.0-1.8) 03/30/17 03:50 Metamyelocytes % 4.0 % 03/30/17 03:50 Myelocytes % 0 % 03/30/17 03:50 Promyelocytes % 0 % 03/30/17 03:50 Blast Cells % 0 % 03/30/17 03:50 Nucleated RBC % Not Reportable 03/30/17 03:50 Seg Neutrophils # 5.1 K/mm3 (1.8-7.7) 06/12/17 05:10 Seg Neutrophils # Man 12.7 K/mm3 (1.8-7.7) H 03/30/17 03:50 Band Neutrophils # 3.3 K/mm3 03/30/17 03:50 Lymphocytes # (Manual) 1.4 K/mm3 (1.2-5.4) 03/30/17 03:50 Abs React Lymphs (Man) 0.0 K/mm3 03/30/17 03:50 Monocytes # (Manual) 1.4 K/mm3 (0.0-0.8) H 03/30/17 03:50 Eosinophils # (Manual) 0.0 K/mm3 (0.0-0.4) 03/30/17 03:50 Basophils # (Manual) 0.0 K/mm3 (0.0-0.1) 03/30/17 03:50 Metamyelocytes # 0.8 K/mm3 03/30/17 03:50 Myelocytes # 0.0 K/mm3 03/30/17 03:50 Promyelocytes # 0.0 K/mm3 03/30/17 03:50 Blast Cells # 0.0 K/mm3 03/30/17 03:50 WBC Morphology Not Reportable 03/30/17 03:50 Hypersegmented Neuts Not Reportable 03/30/17 03:50 Hyposegmented Neuts Not Reportable 03/30/17 03:50 Hypogranular Neuts Not Reportable 03/30/17 03:50 Smudge Cells Not Reportable 03/30/17 03:50 Toxic Granulation Not Reportable 03/30/17 03:50 Toxic Vacuolation Not Reportable 03/30/17 03:50 Dohle Bodies Not Reportable 03/30/17 03:50 Pelger-Huet Anomaly Not Reportable 03/30/17 03:50 Sherry Rods Not Reportable 03/30/17 03:50 Platelet Estimate Appears normal 03/30/17 03:50 Clumped Platelets Not Reportable 03/30/17 03:50 Plt Clumps, EDTA Not Reportable 03/30/17 03:50 Large Platelets Not Reportable 03/30/17 03:50 Giant Platelets Not Reportable 03/30/17 03:50 Platelet Satelliting Not Reportable 03/30/17 03:50 Plt Morphology Comment Not Reportable 03/30/17 03:50 RBC Morphology Not Reportable 03/30/17 03:50 Dimorphic RBCs Not Reportable 03/30/17 03:50 Polychromasia Not Reportable 03/30/17 03:50 Hypochromasia Not Reportable 03/30/17 03:50 Poikilocytosis Not Reportable 03/30/17 03:50 Anisocytosis Few 03/30/17 03:50 Microcytosis Not Reportable 03/30/17 03:50 Macrocytosis Not Reportable 03/30/17 03:50 Spherocytes Not Reportable 03/30/17 03:50 Pappenheimer Bodies Not Reportable 03/30/17 03:50 Sickle Cells Not Reportable 03/30/17 03:50 Target Cells Not Reportable 03/30/17 03:50 Tear Drop Cells Not Reportable 03/30/17 03:50 Ovalocytes Not Reportable 03/30/17 03:50 Helmet Cells Not Reportable 03/30/17 03:50 [place] Bodies Not Reportable 03/30/17 03:50 [place] Rings Not Reportable 03/30/17 03:50 [place] Cells Not Reportable 03/30/17 03:50 Bite Cells Not Reportable 03/30/17 03:50 Crenated Cell Not Reportable 03/30/17 03:50 Elliptocytes Not Reportable 03/30/17 03:50 Acanthocytes (Spur) Not Reportable 03/30/17 03:50 Rouleaux Not Reportable 03/30/17 03:50 Hemoglobin C Crystals Not Reportable 03/30/17 03:50 Schistocytes Not Reportable 03/30/17 03:50 Malaria parasites Not Reportable 03/30/17 03:50 Jermaine Bodies Not Reportable 03/30/17 03:50 Hem Pathologist Commnt No 03/30/17 03:50 PT 14.9 Sec. (12.2-14.9) 04/10/17 04:16 INR 1.11 (0.87-1.13) 04/10/17 04:16 APTT 27.8 Sec. (24.2-36.6) 04/10/17 04:16 Activated Clotting Time 92 (74-137) 03/29/17 17:47 POC ABG pH 7.496 (7.35-7.45) H 06/09/17 18:29 POC ABG pCO2 33.7 (35-45) L 06/09/17 18:29 POC ABG pO2 103 (80-105) 06/09/17 18:29 POC ABG HCO3 26.0 06/09/17 18:29 POC ABG Total CO2 27 06/09/17 18:29 POC ABG O2 Sat 98 06/09/17 18:29 POC ABG Base Excess 3 06/09/17 18:29 FiO2 28 % 06/09/17 18:29 Sodium 141 mmol/L (137-145) 06/12/17 05:10 Potassium 3.7 mmol/L (3.6-5.0) 06/12/17 05:10 Chloride 102.5 mmol/L (98-107) 06/12/17 05:10 Carbon Dioxide 25 mmol/L (22-30) 06/12/17 05:10 Anion Gap 17 mmol/L 06/12/17 05:10 BUN 15 mg/dL (9-20) 06/12/17 05:10 Creatinine 0.3 mg/dL (0.8-1.5) L 06/12/17 05:10 Estimated GFR > 60 ml/min 06/12/17 05:10 BUN/Creatinine Ratio 50 % 06/12/17 05:10 Glucose 134 mg/dL (75-100) H 06/12/17 05:10 POC Glucose 112 (70-105) H 06/14/17 06:18 Calcium 9.5 mg/dL (8.4-10.2) 06/12/17 05:10 Phosphorus 3.50 mg/dL (2.5-4.5) 04/13/17 04:45 Magnesium 1.80 mg/dL (1.7-2.3) 05/01/17 05:30 Total Bilirubin 0.60 mg/dL (0.1-1.2) 05/01/17 05:30 Direct Bilirubin < 0.2 mg/dL (0-0.2) 04/27/17 05:40 Indirect Bilirubin 0.3 mg/dL 04/25/17 04:51 AST 71 units/L (5-40) H 05/01/17 05:30 ALT 125 units/L (7-56) H 05/01/17 05:30 Alkaline Phosphatase 158 units/L (35-129) H 05/01/17 05:30 Total Creatine Kinase 1404 units/L (55-170) H 04/12/17 21:36 CK-MB (CK-2) 8.0 ng/mL (0.0-4.0) H 04/12/17 21:36 CK-MB (CK-2) Rel Index 0.5 (0-4) 04/12/17 21:36 Troponin T 0.767 ng/mL (0.00-0.029) H* 04/12/17 21:36 C-Reactive Protein 21.80 mg/dL (0.00-1.30) H 03/30/17 16:04 Total Protein 6.7 g/dL (6.3-8.2) 05/01/17 05:30 Albumin 2.6 g/dL (3.9-5) L 05/01/17 05:30 Albumin/Globulin Ratio 0.6 % 05/01/17 05:30 Triglycerides 151 mg/dL (2-149) H 04/01/17 04:29 Cholesterol 164 mg/dL (50-199) 03/29/17 19:52 LDL Cholesterol Direct 81 mg/dL (50-130) 03/29/17 19:52 HDL Cholesterol 44 mg/dL (40-59) 03/29/17 19:52 Cholesterol/HDL Ratio 3.72 % 03/29/17 19:52 Urine Color [place] (Yellow) 04/21/17 22:00 Urine Turbidity Clear (Clear) 04/21/17 22:00 Urine pH 5.0 (5.0-7.0) 04/21/17 22:00 Ur Specific [place] 1.029 (1.003-1.030) 04/21/17 22:00 Urine Protein 30 mg/dl mg/dL (Negative) 04/21/17 22:00 Urine Glucose (UA) Neg mg/dL (Negative) 04/21/17 22:00 Urine Ketones Neg mg/dL (Negative) 04/21/17 22:00 Urine Blood Mod (Negative) 04/21/17 22:00 Urine Nitrite Neg (Negative) 04/21/17 22:00 Urine Bilirubin Neg (Negative) 04/21/17 22:00 Urine Urobilinogen 4.0 mg/dL (<2.0) 04/21/17 22:00 Ur Leukocyte Esterase Neg (Negative) 04/21/17 22:00 Urine WBC (Auto) 10.0 /HPF (0.0-6.0) H 04/21/17 22:00 Urine RBC (Auto) 44.0 /HPF (0.0-6.0) 04/21/17 22:00 U Epithel Cells (Auto) < 1.0 /HPF (0-13.0) 04/21/17 22:00 Amorphous Crystals 1+ 03/30/17 09:45 Urine Mucus 3+ /HPF 04/21/17 22:00 Urine Opiates Screen Presumptive negative 03/30/17 09:45 Urine Methadone Screen Presumptive negative 03/30/17 09:45 Ur Barbiturates Screen Presumptive negative 03/30/17 09:45 Ur Phencyclidine Scrn Presumptive negative 03/30/17 09:45 Ur Amphetamines Screen Presumptive positive 03/30/17 09:45 U Benzodiazepines Scrn Presumptive positive 03/30/17 09:45 Urine Cocaine Screen Presumptive negative 03/30/17 09:45 U Marijuana (THC) Screen Presumptive negative 03/30/17 09:45 Drugs of Abuse Note Disclamer 03/30/17 09:45 Miscellaneous Test Flexitest 1 H 04/25/17 07:07 Blood Type O POSITIVE 03/29/17 11:35 Antibody Screen Negative 03/29/17 11:35
--- NOTE | 2017-06-14 12:32 | Progress Note ---
Assessment and Plan Imp: 1. s/p CP arrest 2. Anoxic enceph. 3. Acute respiratory failure, hypoxia 4. s/p Trach/PEG 5. STEMI/ICMP Rec: 1. Stable on Tpiece; will monitor 2. D/c planning No family present Subjective Date of service: 06/14/17 Principal diagnosis: coma,ARV,s/p arrest,ARF MV Interval history: No events. Eyes open but unresponsive. Cannot give history. On Tpiece. Active Medications Albuterol (Proventil) 2.5 mg IH Q3HRT PRN PRN Reason: Shortness Of Breath Last Admin: 04/13/17 21:25 Dose: 2.5 mg Amiodarone HCl (Cordarone) 200 mg PO BID [facility] Last Admin: 06/13/17 22:19 Dose: 200 mg Lipase/Protease/Amylase (Pancreaze Dr 10,500 Unit) 1 each FEEDTUBE PRN PRN PRN Reason: For Clogged Feeding Tube Apixaban (Eliquis) 5 mg PO Q12HR [facility]; Protocol Last Admin: 06/13/17 22:19 Dose: 5 mg Aspirin (Aspirin) 325 mg PO QDAY [facility] Last Admin: 06/13/17 09:23 Dose: 325 mg Atorvastatin Calcium (Lipitor) 20 mg PO QHS [facility] Last Admin: 06/13/17 22:18 Dose: 20 mg Clopidogrel Bisulfate (Plavix) 75 mg PO QDAY [facility] Last Admin: 06/13/17 09:23 Dose: 75 mg Dextrose (D50w (25gm) Syringe) 50 ml IV PRN PRN PRN Reason: Hypoglycemia Hydrophilic Ointment (Vaseline Lip Therapy) 1 applic TP Q2HR PRN PRN Reason: Dry Lips Last Admin: 05/01/17 00:35 Dose: 1 applic Lisinopril (Zestril) 2.5 mg PO QDAY [facility] Last Admin: 06/13/17 09:25 Dose: Not Given Metoprolol Tartrate (Lopressor) 2.5 mg IV Q4HR PRN PRN Reason: HR>130 Last Admin: 04/09/17 19:41 Dose: 2.5 mg Metoprolol Tartrate (Lopressor) 12.5 mg PO BID [facility] Last Admin: 06/13/17 22:19 Dose: 12.5 mg Multi-Ingred Cream/Lotion/Oil/Oint (Artificial Tears Ophth Oint) 1 applic OU Q4HR PRN PRN Reason: Dry Eye(s) Last Admin: 03/31/17 22:51 Dose: 1 applic Pantoprazole (Protonix) 40 mg FEEDTUBE DAILY [facility] Last Admin: 06/13/17 09:23 Dose: 40 mg Scopolamine (Transderm-Scop) 1 each TD Q3D [facility] Last Admin: 06/13/17 16:13 Dose: 1 each Simple Syrup (Simple Syrup) 15 ml FEEDTUBE PRN PRN PRN Reason: Hypoglycemia Simple Syrup (Simple Syrup) 30 ml FEEDTUBE PRN PRN PRN Reason: Hypoglycemia Sodium Bicarbonate (Sodium Bicarbonate) 325 mg FEEDTUBE PRN PRN PRN Reason: For Clogged Feeding Tube Objective Vital Signs - 12hr 06/14/17 06/14/17 06/14/17 03:44 04:15 04:51 Temperature 98.3 F Pulse Rate 80 69 Pulse Rate [ Apical] Respiratory 18 Rate Blood Pressure 108/60 O2 Sat by Pulse 93 Oximetry O2 Sat by Pulse 98 Oximetry [ Assessment] 06/14/17 06/14/17 06/14/17 08:00 10:00 12:00 Temperature Pulse Rate 70 98 H Pulse Rate [ 103 H Apical] Respiratory 20 Rate Blood Pressure O2 Sat by Pulse 98 Oximetry O2 Sat by Pulse 100 Oximetry [ Assessment] 06/14/17 12:11 Temperature Pulse Rate Pulse Rate [ Apical] Respiratory Rate Blood Pressure O2 Sat by Pulse 100 Oximetry O2 Sat by Pulse Oximetry [ Assessment] Constitutional: no acute distress, other (stuporous, no changes) Eyes: non-icteric ENT: oropharynx moist Neck: supple, other (trach) Effort: normal Ascultation: Bilateral: clear Cardiovascular: regular rate and rhythm Gastrointestinal: normoactive bowel sounds, soft, non-tender, non-distended Integumentary: normal Extremities: no cyanosis, no edema, pink and warm Neurologic: other (no change) Psychiatric: other (eyes open spontaneously but does not follow any voice commands, ) CBC and BMP: 06/12/17 05:10 06/12/17 05:10 ABG, PT/INR, D-dimer: ABG POC ABG pH 7.496 (7.35-7.45) H 06/09/17 18:29 POC ABG pCO2 33.7 (35-45) L 06/09/17 18:29 POC ABG pO2 103 (80-105) 06/09/17 18:29 POC ABG HCO3 26.0 06/09/17 18:29 POC ABG Total CO2 27 06/09/17 18:29 POC ABG O2 Sat 98 06/09/17 18:29 PT/INR, D-dimer PT 14.9 Sec. (12.2-14.9) 04/10/17 04:16 INR 1.11 (0.87-1.13) 04/10/17 04:16 Abnormal lab findings: Abnormal Labs 03/29/17 03/29/17 03/29/17 11:35 11:35 11:40 WBC RBC Hgb Hct MCV 98 H MCH 33 H RDW Plt Count Lymph % (Auto) [place] % (Auto) Eos % (Auto) Baso % (Auto) Lymph # Baso # Seg Neutrophils % Lymphocytes % (Manual) Monocytes % (Manual) 9.0 H Nucleated RBC % 1.0 H Seg Neutrophils # Seg Neutrophils # Man Monocytes # (Manual) 0.9 H PT 15.8 H INR 1.20 H Activated Clotting Time POC ABG pH POC ABG pCO2 POC ABG pO2 Sodium Potassium 2.7 L* Chloride 95.3 L Carbon Dioxide 17 L BUN Creatinine Glucose 435 H POC Glucose Calcium Magnesium Direct Bilirubin AST ALT Alkaline Phosphatase Total Creatine Kinase CK-MB (CK-2) CK-MB (CK-2) Rel Index Troponin T C-Reactive Protein Total Protein 6.1 L Albumin 3.5 L Triglycerides Ur Specific [place] Urine WBC (Auto) Miscellaneous Test 03/29/17 03/29/17 03/29/17 12:34 13:10 13:25 WBC RBC Hgb Hct MCV MCH RDW Plt Count Lymph % (Auto) [place] % (Auto) Eos % (Auto) Baso % (Auto) Lymph # Baso # Seg Neutrophils % Lymphocytes % (Manual) Monocytes % (Manual) Nucleated RBC % Seg Neutrophils # Seg Neutrophils # Man Monocytes # (Manual) PT INR Activated Clotting Time 142 H 169 H 175 H POC ABG pH POC ABG pCO2 POC ABG pO2 Sodium Potassium Chloride Carbon Dioxide BUN Creatinine Glucose POC Glucose Calcium Magnesium Direct Bilirubin AST ALT Alkaline Phosphatase Total Creatine Kinase CK-MB (CK-2) CK-MB (CK-2) Rel Index Troponin T C-Reactive Protein Total Protein Albumin Triglycerides Ur Specific [place] Urine WBC (Auto) Miscellaneous Test 03/29/17 03/29/17 03/29/17 14:50 15:18 19:52 WBC RBC Hgb Hct MCV MCH RDW Plt Count Lymph % (Auto) [place] % (Auto) Eos % (Auto) Baso % (Auto) Lymph # Baso # Seg Neutrophils % Lymphocytes % (Manual) Monocytes % (Manual) Nucleated RBC % Seg Neutrophils # Seg Neutrophils # Man Monocytes # (Manual) PT INR Activated Clotting Time 175 H POC ABG pH 7.293 L POC ABG pCO2 POC ABG pO2 602 H Sodium Potassium Chloride Carbon Dioxide BUN Creatinine Glucose POC Glucose Calcium Magnesium Direct Bilirubin AST ALT Alkaline Phosphatase Total Creatine Kinase 7263 H CK-MB (CK-2) > 300.0 H CK-MB (CK-2) Rel Index 4.1 H Troponin T 8.080 H* D C-Reactive Protein Total Protein Albumin Triglycerides 195 H Ur Specific [place] Urine WBC (Auto) Miscellaneous Test 03/30/17 03/30/17 03/30/17 03:50 03:50 06:19 WBC 19.5 H RBC Hgb Hct MCV MCH RDW Plt Count Lymph % (Auto) [place] % (Auto) Eos % (Auto) Baso % (Auto) Lymph # Baso # Seg Neutrophils % Lymphocytes % (Manual) 7.0 L Monocytes % (Manual) Nucleated RBC % Seg Neutrophils # Seg Neutrophils # Man 12.7 H Monocytes # (Manual) 1.4 H PT INR Activated Clotting Time POC ABG pH POC ABG pCO2 28.2 L POC ABG pO2 108 H Sodium Potassium Chloride 108.9 H Carbon Dioxide 15 L BUN 25 H Creatinine Glucose 158 H POC Glucose Calcium 8.1 L Magnesium Direct Bilirubin AST ALT Alkaline Phosphatase Total Creatine Kinase 7963 H CK-MB (CK-2) > 300.0 H CK-MB (CK-2) Rel Index Troponin T 6.850 H* C-Reactive Protein Total Protein Albumin Triglycerides Ur Specific [place] Urine WBC (Auto) Miscellaneous Test 03/30/17 03/30/17 03/31/17 09:45 16:04 02:19 WBC RBC Hgb Hct MCV MCH RDW Plt Count Lymph % (Auto) [place] % (Auto) Eos % (Auto) Baso % (Auto) Lymph # Baso # Seg Neutrophils % Lymphocytes % (Manual) Monocytes % (Manual) Nucleated RBC % Seg Neutrophils # Seg Neutrophils # Man Monocytes # (Manual) PT INR Activated Clotting Time POC ABG pH POC ABG pCO2 POC ABG pO2 Sodium Potassium Chloride Carbon Dioxide BUN Creatinine Glucose POC Glucose 137 H Calcium Magnesium Direct Bilirubin AST ALT Alkaline Phosphatase Total Creatine Kinase CK-MB (CK-2) CK-MB (CK-2) Rel Index Troponin T C-Reactive Protein 21.80 H Total Protein Albumin Triglycerides Ur Specific [place] 1.031 H Urine WBC (Auto) Miscellaneous Test 03/31/17 03/31/17 03/31/17 03:57 06:54 09:22 WBC RBC Hgb Hct MCV MCH RDW Plt Count Lymph % (Auto) [place] % (Auto) Eos % (Auto) Baso % (Auto) Lymph # Baso # Seg Neutrophils % Lymphocytes % (Manual) Monocytes % (Manual) Nucleated RBC % Seg Neutrophils # Seg Neutrophils # Man Monocytes # (Manual) PT INR Activated Clotting Time POC ABG pH 7.475 H POC ABG pCO2 25.4 L POC ABG pO2 62 L Sodium Potassium Chloride Carbon Dioxide 19 L BUN 22 H Creatinine 0.6 L Glucose 148 H POC Glucose 143 H Calcium 8.3 L Magnesium Direct Bilirubin AST ALT Alkaline Phosphatase Total Creatine Kinase CK-MB (CK-2) CK-MB (CK-2) Rel Index Troponin T C-Reactive Protein Total Protein Albumin Triglycerides Ur Specific [place] Urine WBC (Auto) Miscellaneous Test 03/31/17 03/31/17 03/31/17 11:40 17:47 23:38 WBC RBC Hgb Hct MCV MCH RDW Plt Count Lymph % (Auto) [place] % (Auto) Eos % (Auto) Baso % (Auto) Lymph # Baso # Seg Neutrophils % Lymphocytes % (Manual) Monocytes % (Manual) Nucleated RBC % Seg Neutrophils # Seg Neutrophils # Man Monocytes # (Manual) PT INR Activated Clotting Time POC ABG pH POC ABG pCO2 POC ABG pO2 Sodium Potassium Chloride Carbon Dioxide BUN Creatinine Glucose POC Glucose 127 H 137 H 148 H Calcium Magnesium Direct Bilirubin AST ALT Alkaline Phosphatase Total Creatine Kinase CK-MB (CK-2) CK-MB (CK-2) Rel Index Troponin T C-Reactive Protein Total Protein Albumin Triglycerides Ur Specific [place] Urine WBC (Auto) Miscellaneous Test 04/01/17 04/01/17 04/01/17 04:29 05:01 11:54 WBC RBC Hgb Hct MCV MCH RDW Plt Count Lymph % (Auto) [place] % (Auto) Eos % (Auto) Baso % (Auto) Lymph # Baso # Seg Neutrophils % Lymphocytes % (Manual) Monocytes % (Manual) Nucleated RBC % Seg Neutrophils # Seg Neutrophils # Man Monocytes # (Manual) PT INR Activated Clotting Time POC ABG pH 7.513 H POC ABG pCO2 22.1 L POC ABG pO2 64 L Sodium Potassium Chloride Carbon Dioxide BUN Creatinine Glucose POC Glucose 121 H Calcium Magnesium Direct Bilirubin AST ALT Alkaline Phosphatase Total Creatine Kinase CK-MB (CK-2) CK-MB (CK-2) Rel Index Troponin T C-Reactive Protein Total Protein Albumin Triglycerides 151 H Ur Specific [place] Urine WBC (Auto) Miscellaneous Test 04/01/17 04/02/17 04/02/17 18:17 00:11 04:52 WBC RBC Hgb Hct MCV MCH RDW Plt Count Lymph % (Auto) [place] % (Auto) Eos % (Auto) Baso % (Auto) Lymph # Baso # Seg Neutrophils % Lymphocytes % (Manual) Monocytes % (Manual) Nucleated RBC % Seg Neutrophils # Seg Neutrophils # Man Monocytes # (Manual) PT INR Activated Clotting Time POC ABG pH 7.524 H POC ABG pCO2 25.5 L POC ABG pO2 66 L Sodium Potassium Chloride Carbon Dioxide BUN Creatinine Glucose POC Glucose 117 H 122 H Calcium Magnesium Direct Bilirubin AST ALT Alkaline Phosphatase Total Creatine Kinase CK-MB (CK-2) CK-MB (CK-2) Rel Index Troponin T C-Reactive Protein Total Protein Albumin Triglycerides Ur Specific [place] Urine WBC (Auto) Miscellaneous Test 04/02/17 04/02/17 04/02/17 05:18 10:41 12:19 WBC RBC Hgb Hct MCV MCH RDW Plt Count Lymph % (Auto) [place] % (Auto) Eos % (Auto) Baso % (Auto) Lymph # Baso # Seg Neutrophils % Lymphocytes % (Manual) Monocytes % (Manual) Nucleated RBC % Seg Neutrophils # Seg Neutrophils # Man Monocytes # (Manual) PT INR Activated Clotting Time POC ABG pH 7.534 H POC ABG pCO2 27.4 L POC ABG pO2 Sodium Potassium Chloride Carbon Dioxide BUN Creatinine Glucose POC Glucose 132 H 129 H Calcium Magnesium Direct Bilirubin AST ALT Alkaline Phosphatase Total Creatine Kinase CK-MB (CK-2) CK-MB (CK-2) Rel Index Troponin T C-Reactive Protein Total Protein Albumin Triglycerides Ur Specific [place] Urine WBC (Auto) Miscellaneous Test 04/02/17 04/03/17 04/03/17 18:05 00:08 05:09 WBC RBC Hgb Hct MCV MCH RDW Plt Count Lymph % (Auto) [place] % (Auto) Eos % (Auto) Baso % (Auto) Lymph # Baso # Seg Neutrophils % Lymphocytes % (Manual) Monocytes % (Manual) Nucleated RBC % Seg Neutrophils # Seg Neutrophils # Man Monocytes # (Manual) PT INR Activated Clotting Time POC ABG pH 7.455 H POC ABG pCO2 33.2 L POC ABG pO2 120 H Sodium Potassium Chloride Carbon Dioxide BUN Creatinine Glucose POC Glucose 136 H 128 H Calcium Magnesium Direct Bilirubin AST ALT Alkaline Phosphatase Total Creatine Kinase CK-MB (CK-2) CK-MB (CK-2) Rel Index Troponin T C-Reactive Protein Total Protein Albumin Triglycerides Ur Specific [place] Urine WBC (Auto) Miscellaneous Test 04/03/17 04/03/17 04/03/17 06:32 11:54 12:16 WBC 11.9 H RBC Hgb Hct MCV MCH RDW Plt Count 125 L Lymph % (Auto) 4.8 L [place] % (Auto) Eos % (Auto) Baso % (Auto) Lymph # 0.6 L Baso # Seg Neutrophils % 86.7 H Lymphocytes % (Manual) Monocytes % (Manual) Nucleated RBC % Seg Neutrophils # 10.3 H Seg Neutrophils # Man Monocytes # (Manual) PT INR Activated Clotting Time POC ABG pH POC ABG pCO2 POC ABG pO2 Sodium Potassium Chloride Carbon Dioxide BUN Creatinine Glucose POC Glucose 138 H 143 H Calcium Magnesium Direct Bilirubin AST ALT Alkaline Phosphatase Total Creatine Kinase CK-MB (CK-2) CK-MB (CK-2) Rel Index Troponin T C-Reactive Protein Total Protein Albumin Triglycerides Ur Specific [place] Urine WBC (Auto) Miscellaneous Test 04/03/17 04/03/17 04/04/17 17:33 23:59 04:34 WBC RBC Hgb Hct MCV MCH RDW Plt Count Lymph % (Auto) [place] % (Auto) Eos % (Auto) Baso % (Auto) Lymph # Baso # Seg Neutrophils % Lymphocytes % (Manual) Monocytes % (Manual) Nucleated RBC % Seg Neutrophils # Seg Neutrophils # Man Monocytes # (Manual) PT INR Activated Clotting Time POC ABG pH 7.457 H POC ABG pCO2 29.8 L POC ABG pO2 76 L Sodium Potassium Chloride Carbon Dioxide BUN Creatinine Glucose POC Glucose 130 H 155 H Calcium Magnesium Direct Bilirubin AST ALT Alkaline Phosphatase Total Creatine Kinase CK-MB (CK-2) CK-MB (CK-2) Rel Index Troponin T C-Reactive Protein Total Protein Albumin Triglycerides Ur Specific [place] Urine WBC (Auto) Miscellaneous Test 04/04/17 04/04/17 04/04/17 05:27 12:22 18:18 WBC RBC Hgb Hct MCV MCH RDW Plt Count Lymph % (Auto) [place] % (Auto) Eos % (Auto) Baso % (Auto) Lymph # Baso # Seg Neutrophils % Lymphocytes % (Manual) Monocytes % (Manual) Nucleated RBC % Seg Neutrophils # Seg Neutrophils # Man Monocytes # (Manual) PT INR Activated Clotting Time POC ABG pH POC ABG pCO2 POC ABG pO2 Sodium Potassium Chloride Carbon Dioxide BUN Creatinine Glucose POC Glucose 164 H 146 H 130 H Calcium Magnesium Direct Bilirubin AST ALT Alkaline Phosphatase Total Creatine Kinase CK-MB (CK-2) CK-MB (CK-2) Rel Index Troponin T C-Reactive Protein Total Protein Albumin Triglycerides Ur Specific [place] Urine WBC (Auto) Miscellaneous Test 04/05/17 04/05/17 04/05/17 04:43 05:28 11:36 WBC RBC Hgb Hct MCV MCH RDW Plt Count Lymph % (Auto) [place] % (Auto) Eos % (Auto) Baso % (Auto) Lymph # Baso # Seg Neutrophils % Lymphocytes % (Manual) Monocytes % (Manual) Nucleated RBC % Seg Neutrophils # Seg Neutrophils # Man Monocytes # (Manual) PT INR Activated Clotting Time POC ABG pH 7.479 H POC ABG pCO2 33.5 L POC ABG pO2 76 L Sodium Potassium Chloride Carbon Dioxide BUN Creatinine Glucose POC Glucose 145 H 136 H Calcium Magnesium Direct Bilirubin AST ALT Alkaline Phosphatase Total Creatine Kinase CK-MB (CK-2) CK-MB (CK-2) Rel Index Troponin T C-Reactive Protein Total Protein Albumin Triglycerides Ur Specific [place] Urine WBC (Auto) Miscellaneous Test 04/05/17 04/06/17 04/06/17 17:58 00:16 05:26 WBC RBC Hgb Hct MCV MCH RDW Plt Count Lymph % (Auto) [place] % (Auto) Eos % (Auto) Baso % (Auto) Lymph # Baso # Seg Neutrophils % Lymphocytes % (Manual) Monocytes % (Manual) Nucleated RBC % Seg Neutrophils # Seg Neutrophils # Man Monocytes # (Manual) PT INR Activated Clotting Time POC ABG pH POC ABG pCO2 POC ABG pO2 Sodium Potassium Chloride Carbon Dioxide BUN Creatinine Glucose POC Glucose 130 H 159 H 146 H Calcium Magnesium Direct Bilirubin AST ALT Alkaline Phosphatase Total Creatine Kinase CK-MB (CK-2) CK-MB (CK-2) Rel Index Troponin T C-Reactive Protein Total Protein Albumin Triglycerides Ur Specific [place] Urine WBC (Auto) Miscellaneous Test 04/06/17 04/06/17 04/07/17 13:11 16:54 11:45 WBC RBC Hgb Hct MCV MCH RDW Plt Count Lymph % (Auto) [place] % (Auto) Eos % (Auto) Baso % (Auto) Lymph # Baso # Seg Neutrophils % Lymphocytes % (Manual) Monocytes % (Manual) Nucleated RBC % Seg Neutrophils # Seg Neutrophils # Man Monocytes # (Manual) PT INR Activated Clotting Time POC ABG pH 7.517 H POC ABG pCO2 32.1 L POC ABG pO2 Sodium Potassium Chloride Carbon Dioxide BUN Creatinine Glucose POC Glucose 132 H 123 H Calcium Magnesium Direct Bilirubin AST ALT Alkaline Phosphatase Total Creatine Kinase CK-MB (CK-2) CK-MB (CK-2) Rel Index Troponin T C-Reactive Protein Total Protein Albumin Triglycerides Ur Specific [place] Urine WBC (Auto) Miscellaneous Test 04/07/17 04/07/17 04/07/17 12:51 17:40 23:55 WBC RBC Hgb Hct MCV MCH RDW Plt Count Lymph % (Auto) [place] % (Auto) Eos % (Auto) Baso % (Auto) Lymph # Baso # Seg Neutrophils % Lymphocytes % (Manual) Monocytes % (Manual) Nucleated RBC % Seg Neutrophils # Seg Neutrophils # Man Monocytes # (Manual) PT INR Activated Clotting Time POC ABG pH POC ABG pCO2 POC ABG pO2 Sodium Potassium Chloride Carbon Dioxide BUN Creatinine Glucose POC Glucose 138 H 154 H 143 H Calcium Magnesium Direct Bilirubin AST ALT Alkaline Phosphatase Total Creatine Kinase CK-MB (CK-2) CK-MB (CK-2) Rel Index Troponin T C-Reactive Protein Total Protein Albumin Triglycerides Ur Specific [place] Urine WBC (Auto) Miscellaneous Test 04/08/17 04/08/17 04/08/17 05:27 11:14 17:44 WBC RBC Hgb Hct MCV MCH RDW Plt Count Lymph % (Auto) [place] % (Auto) Eos % (Auto) Baso % (Auto) Lymph # Baso # Seg Neutrophils % Lymphocytes % (Manual) Monocytes % (Manual) Nucleated RBC % Seg Neutrophils # Seg Neutrophils # Man Monocytes # (Manual) PT INR Activated Clotting Time POC ABG pH POC ABG pCO2 POC ABG pO2 Sodium Potassium Chloride Carbon Dioxide BUN Creatinine Glucose POC Glucose 142 H 153 H 129 H Calcium Magnesium Direct Bilirubin AST ALT Alkaline Phosphatase Total Creatine Kinase CK-MB (CK-2) CK-MB (CK-2) Rel Index Troponin T C-Reactive Protein Total Protein Albumin Triglycerides Ur Specific [place] Urine WBC (Auto) Miscellaneous Test 04/09/17 04/09/17 04/09/17 08:20 11:21 17:37 WBC RBC Hgb Hct MCV MCH RDW Plt Count Lymph % (Auto) [place] % (Auto) Eos % (Auto) Baso % (Auto) Lymph # Baso # Seg Neutrophils % Lymphocytes % (Manual) Monocytes % (Manual) Nucleated RBC % Seg Neutrophils # Seg Neutrophils # Man Monocytes # (Manual) PT INR Activated Clotting Time POC ABG pH POC ABG pCO2 POC ABG pO2 Sodium 147 H Potassium Chloride 108.8 H Carbon Dioxide BUN 39 H Creatinine 0.5 L Glucose 138 H POC Glucose 152 H 109 H Calcium Magnesium Direct Bilirubin AST ALT Alkaline Phosphatase Total Creatine Kinase CK-MB (CK-2) CK-MB (CK-2) Rel Index Troponin T C-Reactive Protein Total Protein Albumin Triglycerides Ur Specific [place] Urine WBC (Auto) Miscellaneous Test 04/10/17 04/10/17 04/10/17 00:13 04:16 04:16 WBC RBC Hgb 11.5 L Hct MCV 96 H MCH RDW Plt Count 103 L Lymph % (Auto) 11.1 L [place] % (Auto) Eos % (Auto) Baso % (Auto) Lymph # Baso # Seg Neutrophils % 81.5 H Lymphocytes % (Manual) Monocytes % (Manual) Nucleated RBC % Seg Neutrophils # 8.8 H Seg Neutrophils # Man Monocytes # (Manual) PT INR Activated Clotting Time POC ABG pH POC ABG pCO2 POC ABG pO2 Sodium 148 H Potassium Chloride 109.0 H Carbon Dioxide BUN 36 H Creatinine 0.5 L Glucose 131 H POC Glucose 127 H Calcium 8.1 L Magnesium 2.40 H Direct Bilirubin AST 206 H ALT 228 H Alkaline Phosphatase 178 H Total Creatine Kinase CK-MB (CK-2) CK-MB (CK-2) Rel Index Troponin T C-Reactive Protein Total Protein Albumin 2.8 L Triglycerides Ur Specific [place] Urine WBC (Auto) Miscellaneous Test 04/10/17 04/10/17 04/10/17 06:01 11:57 18:27 WBC RBC Hgb Hct MCV MCH RDW Plt Count Lymph % (Auto) [place] % (Auto) Eos % (Auto) Baso % (Auto) Lymph # Baso # Seg Neutrophils % Lymphocytes % (Manual) Monocytes % (Manual) Nucleated RBC % Seg Neutrophils # Seg Neutrophils # Man Monocytes # (Manual) PT INR Activated Clotting Time POC ABG pH POC ABG pCO2 POC ABG pO2 Sodium Potassium Chloride Carbon Dioxide BUN Creatinine Glucose POC Glucose 108 H 154 H 130 H Calcium Magnesium Direct Bilirubin AST ALT Alkaline Phosphatase Total Creatine Kinase CK-MB (CK-2) CK-MB (CK-2) Rel Index Troponin T C-Reactive Protein Total Protein Albumin Triglycerides Ur Specific [place] Urine WBC (Auto) Miscellaneous Test 04/11/17 04/11/17 04/12/17 12:25 17:10 00:22 WBC RBC Hgb Hct MCV MCH RDW Plt Count Lymph % (Auto) [place] % (Auto) Eos % (Auto) Baso % (Auto) Lymph # Baso # Seg Neutrophils % Lymphocytes % (Manual) Monocytes % (Manual) Nucleated RBC % Seg Neutrophils # Seg Neutrophils # Man Monocytes # (Manual) PT INR Activated Clotting Time POC ABG pH POC ABG pCO2 POC ABG pO2 Sodium Potassium Chloride Carbon Dioxide BUN Creatinine Glucose POC Glucose 107 H 129 H 128 H Calcium Magnesium Direct Bilirubin AST ALT Alkaline Phosphatase Total Creatine Kinase CK-MB (CK-2) CK-MB (CK-2) Rel Index Troponin T C-Reactive Protein Total Protein Albumin Triglycerides Ur Specific [place] Urine WBC (Auto) Miscellaneous Test 04/12/17 04/12/17 04/12/17 05:00 11:57 17:47 WBC RBC Hgb Hct MCV MCH RDW Plt Count Lymph % (Auto) [place] % (Auto) Eos % (Auto) Baso % (Auto) Lymph # Baso # Seg Neutrophils % Lymphocytes % (Manual) Monocytes % (Manual) Nucleated RBC % Seg Neutrophils # Seg Neutrophils # Man Monocytes # (Manual) PT INR Activated Clotting Time POC ABG pH POC ABG pCO2 POC ABG pO2 Sodium Potassium Chloride Carbon Dioxide BUN Creatinine Glucose POC Glucose 140 H 142 H Calcium Magnesium Direct Bilirubin AST 158 H ALT 184 H Alkaline Phosphatase 170 H Total Creatine Kinase CK-MB (CK-2) CK-MB (CK-2) Rel Index Troponin T C-Reactive Protein Total Protein Albumin 2.8 L Triglycerides Ur Specific [place] Urine WBC (Auto) Miscellaneous Test 04/12/17 04/12/17 04/13/17 21:36 21:36 01:37 WBC RBC Hgb Hct MCV MCH RDW Plt Count Lymph % (Auto) [place] % (Auto) Eos % (Auto) Baso % (Auto) Lymph # Baso # Seg Neutrophils % Lymphocytes % (Manual) Monocytes % (Manual) Nucleated RBC % Seg Neutrophils # Seg Neutrophils # Man Monocytes # (Manual) PT INR Activated Clotting Time POC ABG pH POC ABG pCO2 POC ABG pO2 Sodium Potassium Chloride Carbon Dioxide BUN Creatinine Glucose POC Glucose 126 H Calcium Magnesium Direct Bilirubin AST ALT Alkaline Phosphatase Total Creatine Kinase 1404 H CK-MB (CK-2) 8.0 H CK-MB (CK-2) Rel Index Troponin T 0.767 H* C-Reactive Protein Total Protein Albumin Triglycerides Ur Specific [place] Urine WBC (Auto) Miscellaneous Test 04/13/17 04/13/17 04/13/17 04:45 04:52 12:17 WBC RBC Hgb Hct MCV MCH RDW Plt Count Lymph % (Auto) [place] % (Auto) Eos % (Auto) Baso % (Auto) Lymph # Baso # Seg Neutrophils % Lymphocytes % (Manual) Monocytes % (Manual) Nucleated RBC % Seg Neutrophils # Seg Neutrophils # Man Monocytes # (Manual) PT INR Activated Clotting Time POC ABG pH POC ABG pCO2 POC ABG pO2 Sodium 148 H Potassium Chloride 112.8 H Carbon Dioxide BUN 33 H Creatinine 0.4 L Glucose 121 H POC Glucose 126 H 149 H Calcium Magnesium Direct Bilirubin AST 160 H ALT 189 H Alkaline Phosphatase 166 H Total Creatine Kinase CK-MB (CK-2) CK-MB (CK-2) Rel Index Troponin T C-Reactive Protein Total Protein Albumin 2.6 L Triglycerides Ur Specific [place] Urine WBC (Auto) Miscellaneous Test 04/13/17 04/14/17 04/14/17 17:45 00:20 00:45 WBC RBC Hgb Hct MCV MCH RDW Plt Count Lymph % (Auto) [place] % (Auto) Eos % (Auto) Baso % (Auto) Lymph # Baso # Seg Neutrophils % Lymphocytes % (Manual) Monocytes % (Manual) Nucleated RBC % Seg Neutrophils # Seg Neutrophils # Man Monocytes # (Manual) PT INR Activated Clotting Time POC ABG pH POC ABG pCO2 POC ABG pO2 Sodium Potassium Chloride Carbon Dioxide BUN Creatinine Glucose POC Glucose 130 H 144 H 144 H Calcium Magnesium Direct Bilirubin AST ALT Alkaline Phosphatase Total Creatine Kinase CK-MB (CK-2) CK-MB (CK-2) Rel Index Troponin T C-Reactive Protein Total Protein Albumin Triglycerides Ur Specific [place] Urine WBC (Auto) Miscellaneous Test 04/14/17 04/14/17 04/14/17 05:40 11:06 11:31 WBC RBC Hgb Hct MCV MCH RDW Plt Count Lymph % (Auto) [place] % (Auto) Eos % (Auto) Baso % (Auto) Lymph # Baso # Seg Neutrophils % Lymphocytes % (Manual) Monocytes % (Manual) Nucleated RBC % Seg Neutrophils # Seg Neutrophils # Man Monocytes # (Manual) PT INR Activated Clotting Time POC ABG pH POC ABG pCO2 POC ABG pO2 Sodium Potassium Chloride Carbon Dioxide BUN Creatinine Glucose POC Glucose 139 H 123 H Calcium Magnesium Direct Bilirubin AST ALT Alkaline Phosphatase Total Creatine Kinase CK-MB (CK-2) CK-MB (CK-2) Rel Index Troponin T C-Reactive Protein Total Protein Albumin Triglycerides Ur Specific [place] 1.033 H Urine WBC (Auto) > 182.0 H Miscellaneous Test 04/14/17 04/14/17 04/15/17 18:00 23:52 05:15 WBC 12.5 H RBC 3.38 L Hgb 10.6 L Hct 32.7 L MCV 97 H MCH RDW Plt Count 107 L Lymph % (Auto) 8.7 L [place] % (Auto) Eos % (Auto) Baso % (Auto) Lymph # 1.1 L Baso # Seg Neutrophils % 86.1 H Lymphocytes % (Manual) Monocytes % (Manual) Nucleated RBC % Seg Neutrophils # 10.7 H Seg Neutrophils # Man Monocytes # (Manual) PT INR Activated Clotting Time POC ABG pH POC ABG pCO2 POC ABG pO2 Sodium Potassium Chloride Carbon Dioxide BUN Creatinine Glucose POC Glucose 133 H 133 H Calcium Magnesium Direct Bilirubin AST ALT Alkaline Phosphatase Total Creatine Kinase CK-MB (CK-2) CK-MB (CK-2) Rel Index Troponin T C-Reactive Protein Total Protein Albumin Triglycerides Ur Specific [place] Urine WBC (Auto) Miscellaneous Test 04/15/17 04/15/17 04/15/17 05:15 05:25 11:50 WBC RBC Hgb Hct MCV MCH RDW Plt Count Lymph % (Auto) [place] % (Auto) Eos % (Auto) Baso % (Auto) Lymph # Baso # Seg Neutrophils % Lymphocytes % (Manual) Monocytes % (Manual) Nucleated RBC % Seg Neutrophils # Seg Neutrophils # Man Monocytes # (Manual) PT INR Activated Clotting Time POC ABG pH POC ABG pCO2 POC ABG pO2 Sodium 149 H Potassium 3.5 L Chloride 114.1 H Carbon Dioxide 21 L BUN 29 H Creatinine 0.4 L Glucose 128 H POC Glucose 133 H 107 H Calcium 8.3 L Magnesium Direct Bilirubin 0.4 H AST 149 H ALT 182 H Alkaline Phosphatase 143 H Total Creatine Kinase CK-MB (CK-2) CK-MB (CK-2) Rel Index Troponin T C-Reactive Protein Total Protein Albumin 2.5 L Triglycerides Ur Specific [place] Urine WBC (Auto) Miscellaneous Test 04/15/17 04/16/17 04/16/17 16:55 00:02 03:17 WBC RBC 3.39 L Hgb 10.5 L Hct 32.4 L MCV 96 H MCH RDW Plt Count 106 L Lymph % (Auto) 6.7 L [place] % (Auto) Eos % (Auto) Baso % (Auto) Lymph # 0.6 L Baso # Seg Neutrophils % 86.8 H Lymphocytes % (Manual) Monocytes % (Manual) Nucleated RBC % Seg Neutrophils # 8.2 H Seg Neutrophils # Man Monocytes # (Manual) PT INR Activated Clotting Time POC ABG pH POC ABG pCO2 POC ABG pO2 Sodium Potassium Chloride Carbon Dioxide BUN Creatinine Glucose POC Glucose 146 H 148 H Calcium Magnesium Direct Bilirubin AST ALT Alkaline Phosphatase Total Creatine Kinase CK-MB (CK-2) CK-MB (CK-2) Rel Index Troponin T C-Reactive Protein Total Protein Albumin Triglycerides Ur Specific [place] Urine WBC (Auto) Miscellaneous Test 04/16/17 04/16/17 04/16/17 03:17 05:19 11:13 WBC RBC Hgb Hct MCV MCH RDW Plt Count Lymph % (Auto) [place] % (Auto) Eos % (Auto) Baso % (Auto) Lymph # Baso # Seg Neutrophils % Lymphocytes % (Manual) Monocytes % (Manual) Nucleated RBC % Seg Neutrophils # Seg Neutrophils # Man Monocytes # (Manual) PT INR Activated Clotting Time POC ABG pH POC ABG pCO2 POC ABG pO2 Sodium 149 H Potassium Chloride 111.1 H Carbon Dioxide 20 L BUN 27 H Creatinine 0.3 L Glucose 156 H POC Glucose 171 H 169 H Calcium 8.3 L Magnesium Direct Bilirubin AST ALT Alkaline Phosphatase Total Creatine Kinase CK-MB (CK-2) CK-MB (CK-2) Rel Index Troponin T C-Reactive Protein Total Protein Albumin Triglycerides Ur Specific [place] Urine WBC (Auto) Miscellaneous Test 04/16/17 04/17/17 04/17/17 17:03 00:00 05:09 WBC RBC Hgb Hct MCV MCH RDW Plt Count Lymph % (Auto) [place] % (Auto) Eos % (Auto) Baso % (Auto) Lymph # Baso # Seg Neutrophils % Lymphocytes % (Manual) Monocytes % (Manual) Nucleated RBC % Seg Neutrophils # Seg Neutrophils # Man Monocytes # (Manual) PT INR Activated Clotting Time POC ABG pH POC ABG pCO2 POC ABG pO2 Sodium Potassium Chloride Carbon Dioxide BUN Creatinine Glucose POC Glucose 151 H 165 H 145 H Calcium Magnesium Direct Bilirubin AST ALT Alkaline Phosphatase Total Creatine Kinase CK-MB (CK-2) CK-MB (CK-2) Rel Index Troponin T C-Reactive Protein Total Protein Albumin Triglycerides Ur Specific [place] Urine WBC (Auto) Miscellaneous Test 04/17/17 04/17/17 04/18/17 11:38 17:47 00:01 WBC RBC Hgb Hct MCV MCH RDW Plt Count Lymph % (Auto) [place] % (Auto) Eos % (Auto) Baso % (Auto) Lymph # Baso # Seg Neutrophils % Lymphocytes % (Manual) Monocytes % (Manual) Nucleated RBC % Seg Neutrophils # Seg Neutrophils # Man Monocytes # (Manual) PT INR Activated Clotting Time POC ABG pH POC ABG pCO2 POC ABG pO2 Sodium Potassium Chloride Carbon Dioxide BUN Creatinine Glucose POC Glucose 170 H 161 H 131 H Calcium Magnesium Direct Bilirubin AST ALT Alkaline Phosphatase Total Creatine Kinase CK-MB (CK-2) CK-MB (CK-2) Rel Index Troponin T C-Reactive Protein Total Protein Albumin Triglycerides Ur Specific [place] Urine WBC (Auto) Miscellaneous Test 04/18/17 04/18/17 04/18/17 03:55 03:55 05:30 WBC RBC 3.05 L Hgb 9.8 L Hct 29.0 L MCV 95 H MCH RDW Plt Count 113 L Lymph % (Auto) [place] % (Auto) Eos % (Auto) 5.3 H Baso % (Auto) Lymph # Baso # Seg Neutrophils % 71.5 H Lymphocytes % (Manual) Monocytes % (Manual) Nucleated RBC % Seg Neutrophils # Seg Neutrophils # Man Monocytes # (Manual) PT INR Activated Clotting Time POC ABG pH 7.460 H POC ABG pCO2 30.8 L POC ABG pO2 129 H Sodium Potassium Chloride Carbon Dioxide 21 L BUN 25 H Creatinine 0.4 L Glucose 123 H POC Glucose Calcium 8.3 L Magnesium Direct Bilirubin AST ALT Alkaline Phosphatase Total Creatine Kinase CK-MB (CK-2) CK-MB (CK-2) Rel Index Troponin T C-Reactive Protein Total Protein Albumin Triglycerides Ur Specific [place] Urine WBC (Auto) Miscellaneous Test 04/18/17 04/18/17 04/19/17 17:10 23:40 04:36 WBC RBC 3.21 L Hgb 10.2 L Hct 30.4 L MCV 95 H MCH RDW Plt Count 131 L Lymph % (Auto) 12.1 L [place] % (Auto) Eos % (Auto) 4.7 H Baso % (Auto) 2.4 H Lymph # 0.9 L Baso # 0.2 H Seg Neutrophils % 75.0 H Lymphocytes % (Manual) Monocytes % (Manual) Nucleated RBC % Seg Neutrophils # Seg Neutrophils # Man Monocytes # (Manual) PT INR Activated Clotting Time POC ABG pH POC ABG pCO2 POC ABG pO2 Sodium Potassium Chloride Carbon Dioxide BUN Creatinine Glucose POC Glucose 135 H 157 H Calcium Magnesium Direct Bilirubin AST ALT Alkaline Phosphatase Total Creatine Kinase CK-MB (CK-2) CK-MB (CK-2) Rel Index Troponin T C-Reactive Protein Total Protein Albumin Triglycerides Ur Specific [place] Urine WBC (Auto) Miscellaneous Test 04/19/17 04/19/17 04/19/17 04:36 05:12 06:50 WBC RBC Hgb Hct MCV MCH RDW Plt Count Lymph % (Auto) [place] % (Auto) Eos % (Auto) Baso % (Auto) Lymph # Baso # Seg Neutrophils % Lymphocytes % (Manual) Monocytes % (Manual) Nucleated RBC % Seg Neutrophils # Seg Neutrophils # Man Monocytes # (Manual) PT INR Activated Clotting Time POC ABG pH 7.516 H POC ABG pCO2 28.0 L POC ABG pO2 Sodium Potassium Chloride Carbon Dioxide 21 L BUN 23 H Creatinine 0.2 L Glucose 137 H POC Glucose 131 H Calcium 7.9 L Magnesium Direct Bilirubin AST ALT Alkaline Phosphatase Total Creatine Kinase CK-MB (CK-2) CK-MB (CK-2) Rel Index Troponin T C-Reactive Protein Total Protein Albumin Triglycerides Ur Specific [place] Urine WBC (Auto) Miscellaneous Test 04/19/17 04/19/17 04/20/17 12:36 17:42 00:12 WBC RBC Hgb Hct MCV MCH RDW Plt Count Lymph % (Auto) [place] % (Auto) Eos % (Auto) Baso % (Auto) Lymph # Baso # Seg Neutrophils % Lymphocytes % (Manual) Monocytes % (Manual) Nucleated RBC % Seg Neutrophils # Seg Neutrophils # Man Monocytes # (Manual) PT INR Activated Clotting Time POC ABG pH POC ABG pCO2 POC ABG pO2 Sodium Potassium Chloride Carbon Dioxide BUN Creatinine Glucose POC Glucose 128 H 140 H 132 H Calcium Magnesium Direct Bilirubin AST ALT Alkaline Phosphatase Total Creatine Kinase CK-MB (CK-2) CK-MB (CK-2) Rel Index Troponin T C-Reactive Protein Total Protein Albumin Triglycerides Ur Specific [place] Urine WBC (Auto) Miscellaneous Test 04/20/17 04/20/17 04/20/17 03:35 03:35 05:10 WBC RBC 3.34 L Hgb 10.4 L Hct 31.6 L MCV 95 H MCH RDW Plt Count Lymph % (Auto) 12.9 L [place] % (Auto) Eos % (Auto) Baso % (Auto) Lymph # Baso # Seg Neutrophils % 77.3 H Lymphocytes % (Manual) Monocytes % (Manual) Nucleated RBC % Seg Neutrophils # Seg Neutrophils # Man Monocytes # (Manual) PT INR Activated Clotting Time POC ABG pH POC ABG pCO2 POC ABG pO2 Sodium Potassium Chloride Carbon Dioxide BUN Creatinine 0.3 L Glucose 155 H POC Glucose 135 H Calcium 7.8 L Magnesium Direct Bilirubin AST ALT Alkaline Phosphatase Total Creatine Kinase CK-MB (CK-2) CK-MB (CK-2) Rel Index Troponin T C-Reactive Protein Total Protein Albumin Triglycerides Ur Specific [place] Urine WBC (Auto) Miscellaneous Test 04/20/17 04/20/17 04/21/17 12:49 18:21 00:05 WBC RBC Hgb Hct MCV MCH RDW Plt Count Lymph % (Auto) [place] % (Auto) Eos % (Auto) Baso % (Auto) Lymph # Baso # Seg Neutrophils % Lymphocytes % (Manual) Monocytes % (Manual) Nucleated RBC % Seg Neutrophils # Seg Neutrophils # Man Monocytes # (Manual) PT INR Activated Clotting Time POC ABG pH POC ABG pCO2 POC ABG pO2 Sodium Potassium Chloride Carbon Dioxide BUN Creatinine Glucose POC Glucose 155 H 165 H 141 H Calcium Magnesium Direct Bilirubin AST ALT Alkaline Phosphatase Total Creatine Kinase CK-MB (CK-2) CK-MB (CK-2) Rel Index Troponin T C-Reactive Protein Total Protein Albumin Triglycerides Ur Specific [place] Urine WBC (Auto) Miscellaneous Test 04/21/17 04/21/17 04/21/17 06:00 12:11 17:04 WBC RBC Hgb Hct MCV MCH RDW Plt Count Lymph % (Auto) [place] % (Auto) Eos % (Auto) Baso % (Auto) Lymph # Baso # Seg Neutrophils % Lymphocytes % (Manual) Monocytes % (Manual) Nucleated RBC % Seg Neutrophils # Seg Neutrophils # Man Monocytes # (Manual) PT INR Activated Clotting Time POC ABG pH POC ABG pCO2 POC ABG pO2 Sodium Potassium Chloride Carbon Dioxide BUN Creatinine Glucose POC Glucose 152 H 165 H 156 H Calcium Magnesium Direct Bilirubin AST ALT Alkaline Phosphatase Total Creatine Kinase CK-MB (CK-2) CK-MB (CK-2) Rel Index Troponin T C-Reactive Protein Total Protein Albumin Triglycerides Ur Specific [place] Urine WBC (Auto) Miscellaneous Test 04/21/17 04/21/17 04/22/17 22:00 23:59 05:49 WBC RBC Hgb Hct MCV MCH RDW Plt Count Lymph % (Auto) [place] % (Auto) Eos % (Auto) Baso % (Auto) Lymph # Baso # Seg Neutrophils % Lymphocytes % (Manual) Monocytes % (Manual) Nucleated RBC % Seg Neutrophils # Seg Neutrophils # Man Monocytes # (Manual) PT INR Activated Clotting Time POC ABG pH POC ABG pCO2 POC ABG pO2 Sodium Potassium Chloride Carbon Dioxide BUN Creatinine Glucose POC Glucose 166 H 173 H Calcium Magnesium Direct Bilirubin AST ALT Alkaline Phosphatase Total Creatine Kinase CK-MB (CK-2) CK-MB (CK-2) Rel Index Troponin T C-Reactive Protein Total Protein Albumin Triglycerides Ur Specific [place] Urine WBC (Auto) 10.0 H Miscellaneous Test 04/22/17 04/22/17 04/23/17 11:11 18:04 00:37 WBC RBC Hgb Hct MCV MCH RDW Plt Count Lymph % (Auto) [place] % (Auto) Eos % (Auto) Baso % (Auto) Lymph # Baso # Seg Neutrophils % Lymphocytes % (Manual) Monocytes % (Manual) Nucleated RBC % Seg Neutrophils # Seg Neutrophils # Man Monocytes # (Manual) PT INR Activated Clotting Time POC ABG pH POC ABG pCO2 POC ABG pO2 Sodium Potassium Chloride Carbon Dioxide BUN Creatinine Glucose POC Glucose 172 H 140 H 135 H Calcium Magnesium Direct Bilirubin AST ALT Alkaline Phosphatase Total Creatine Kinase CK-MB (CK-2) CK-MB (CK-2) Rel Index Troponin T C-Reactive Protein Total Protein Albumin Triglycerides Ur Specific [place] Urine WBC (Auto) Miscellaneous Test 04/23/17 04/23/17 04/23/17 05:33 06:20 11:10 WBC RBC 3.19 L Hgb 9.9 L Hct 30.0 L MCV MCH RDW Plt Count Lymph % (Auto) 8.0 L [place] % (Auto) Eos % (Auto) Baso % (Auto) Lymph # 0.8 L Baso # Seg Neutrophils % 84.5 H Lymphocytes % (Manual) Monocytes % (Manual) Nucleated RBC % Seg Neutrophils # 8.2 H Seg Neutrophils # Man Monocytes # (Manual) PT INR Activated Clotting Time POC ABG pH POC ABG pCO2 POC ABG pO2 Sodium Potassium Chloride Carbon Dioxide BUN Creatinine Glucose POC Glucose 134 H 134 H Calcium Magnesium Direct Bilirubin AST ALT Alkaline Phosphatase Total Creatine Kinase CK-MB (CK-2) CK-MB (CK-2) Rel Index Troponin T C-Reactive Protein Total Protein Albumin Triglycerides Ur Specific [place] Urine WBC (Auto) Miscellaneous Test 04/23/17 04/24/17 04/24/17 17:26 00:53 06:46 WBC RBC Hgb Hct MCV MCH RDW Plt Count Lymph % (Auto) [place] % (Auto) Eos % (Auto) Baso % (Auto) Lymph # Baso # Seg Neutrophils % Lymphocytes % (Manual) Monocytes % (Manual) Nucleated RBC % Seg Neutrophils # Seg Neutrophils # Man Monocytes # (Manual) PT INR Activated Clotting Time POC ABG pH POC ABG pCO2 POC ABG pO2 Sodium Potassium Chloride Carbon Dioxide BUN Creatinine Glucose POC Glucose 164 H 146 H 125 H Calcium Magnesium Direct Bilirubin AST ALT Alkaline Phosphatase Total Creatine Kinase CK-MB (CK-2) CK-MB (CK-2) Rel Index Troponin T C-Reactive Protein Total Protein Albumin Triglycerides Ur Specific [place] Urine WBC (Auto) Miscellaneous Test 04/24/17 04/24/17 04/24/17 11:55 17:50 23:36 WBC RBC Hgb Hct MCV MCH RDW Plt Count Lymph % (Auto) [place] % (Auto) Eos % (Auto) Baso % (Auto) Lymph # Baso # Seg Neutrophils % Lymphocytes % (Manual) Monocytes % (Manual) Nucleated RBC % Seg Neutrophils # Seg Neutrophils # Man Monocytes # (Manual) PT INR Activated Clotting Time POC ABG pH POC ABG pCO2 POC ABG pO2 Sodium Potassium Chloride Carbon Dioxide BUN Creatinine Glucose POC Glucose 156 H 146 H 131 H Calcium Magnesium Direct Bilirubin AST ALT Alkaline Phosphatase Total Creatine Kinase CK-MB (CK-2) CK-MB (CK-2) Rel Index Troponin T C-Reactive Protein Total Protein Albumin Triglycerides Ur Specific [place] Urine WBC (Auto) Miscellaneous Test 04/25/17 04/25/17 04/25/17 04:51 05:16 07:07 WBC RBC Hgb Hct MCV MCH RDW Plt Count Lymph % (Auto) [place] % (Auto) Eos % (Auto) Baso % (Auto) Lymph # Baso # Seg Neutrophils % Lymphocytes % (Manual) Monocytes % (Manual) Nucleated RBC % Seg Neutrophils # Seg Neutrophils # Man Monocytes # (Manual) PT INR Activated Clotting Time POC ABG pH POC ABG pCO2 POC ABG pO2 Sodium Potassium Chloride Carbon Dioxide BUN Creatinine Glucose POC Glucose 139 H Calcium Magnesium Direct Bilirubin AST 105 H ALT 204 H Alkaline Phosphatase 189 H Total Creatine Kinase CK-MB (CK-2) CK-MB (CK-2) Rel Index Troponin T C-Reactive Protein Total Protein Albumin 2.4 L Triglycerides Ur Specific [place] Urine WBC (Auto) Miscellaneous Test Flexitest 1 H 04/25/17 04/25/17 04/25/17 12:29 17:23 23:32 WBC RBC Hgb Hct MCV MCH RDW Plt Count Lymph % (Auto) [place] % (Auto) Eos % (Auto) Baso % (Auto) Lymph # Baso # Seg Neutrophils % Lymphocytes % (Manual) Monocytes % (Manual) Nucleated RBC % Seg Neutrophils # Seg Neutrophils # Man Monocytes # (Manual) PT INR Activated Clotting Time POC ABG pH POC ABG pCO2 POC ABG pO2 Sodium Potassium Chloride Carbon Dioxide BUN Creatinine Glucose POC Glucose 132 H 133 H 128 H Calcium Magnesium Direct Bilirubin AST ALT Alkaline Phosphatase Total Creatine Kinase CK-MB (CK-2) CK-MB (CK-2) Rel Index Troponin T C-Reactive Protein Total Protein Albumin Triglycerides Ur Specific [place] Urine WBC (Auto) Miscellaneous Test 04/26/17 04/26/17 04/26/17 05:24 11:28 17:09 WBC RBC Hgb Hct MCV MCH RDW Plt Count Lymph % (Auto) [place] % (Auto) Eos % (Auto) Baso % (Auto) Lymph # Baso # Seg Neutrophils % Lymphocytes % (Manual) Monocytes % (Manual) Nucleated RBC % Seg Neutrophils # Seg Neutrophils # Man Monocytes # (Manual) PT INR Activated Clotting Time POC ABG pH POC ABG pCO2 POC ABG pO2 Sodium Potassium Chloride Carbon Dioxide BUN Creatinine Glucose POC Glucose 132 H 146 H 141 H Calcium Magnesium Direct Bilirubin AST ALT Alkaline Phosphatase Total Creatine Kinase CK-MB (CK-2) CK-MB (CK-2) Rel Index Troponin T C-Reactive Protein Total Protein Albumin Triglycerides Ur Specific [place] Urine WBC (Auto) Miscellaneous Test 04/26/17 04/27/17 04/27/17 23:52 05:40 05:40 WBC RBC 3.22 L Hgb 10.0 L Hct 29.9 L MCV MCH RDW Plt Count Lymph % (Auto) [place] % (Auto) Eos % (Auto) Baso % (Auto) Lymph # Baso # Seg Neutrophils % 76.6 H Lymphocytes % (Manual) Monocytes % (Manual) Nucleated RBC % Seg Neutrophils # Seg Neutrophils # Man Monocytes # (Manual) PT INR Activated Clotting Time POC ABG pH POC ABG pCO2 POC ABG pO2 Sodium Potassium Chloride Carbon Dioxide BUN Creatinine Glucose POC Glucose 140 H Calcium Magnesium Direct Bilirubin AST 66 H ALT 137 H Alkaline Phosphatase 169 H Total Creatine Kinase CK-MB (CK-2) CK-MB (CK-2) Rel Index Troponin T C-Reactive Protein Total Protein 6.2 L Albumin 2.6 L Triglycerides Ur Specific [place] Urine WBC (Auto) Miscellaneous Test 04/27/17 04/27/17 04/27/17 05:40 06:10 11:13 WBC RBC Hgb Hct MCV MCH RDW Plt Count Lymph % (Auto) [place] % (Auto) Eos % (Auto) Baso % (Auto) Lymph # Baso # Seg Neutrophils % Lymphocytes % (Manual) Monocytes % (Manual) Nucleated RBC % Seg Neutrophils # Seg Neutrophils # Man Monocytes # (Manual) PT INR Activated Clotting Time POC ABG pH POC ABG pCO2 POC ABG pO2 Sodium Potassium Chloride Carbon Dioxide BUN Creatinine 0.2 L Glucose 139 H POC Glucose 130 H 151 H Calcium Magnesium Direct Bilirubin AST ALT Alkaline Phosphatase Total Creatine Kinase CK-MB (CK-2) CK-MB (CK-2) Rel Index Troponin T C-Reactive Protein Total Protein Albumin Triglycerides Ur Specific [place] Urine WBC (Auto) Miscellaneous Test 04/27/17 04/27/17 04/28/17 17:37 23:19 05:24 WBC RBC Hgb Hct MCV MCH RDW Plt Count Lymph % (Auto) [place] % (Auto) Eos % (Auto) Baso % (Auto) Lymph # Baso # Seg Neutrophils % Lymphocytes % (Manual) Monocytes % (Manual) Nucleated RBC % Seg Neutrophils # Seg Neutrophils # Man Monocytes # (Manual) PT INR Activated Clotting Time POC ABG pH POC ABG pCO2 POC ABG pO2 Sodium Potassium Chloride Carbon Dioxide BUN Creatinine Glucose POC Glucose 159 H 130 H 132 H Calcium Magnesium Direct Bilirubin AST ALT Alkaline Phosphatase Total Creatine Kinase CK-MB (CK-2) CK-MB (CK-2) Rel Index Troponin T C-Reactive Protein Total Protein Albumin Triglycerides Ur Specific [place] Urine WBC (Auto) Miscellaneous Test 04/28/17 04/28/17 04/28/17 11:15 17:38 23:23 WBC RBC Hgb Hct MCV MCH RDW Plt Count Lymph % (Auto) [place] % (Auto) Eos % (Auto) Baso % (Auto) Lymph # Baso # Seg Neutrophils % Lymphocytes % (Manual) Monocytes % (Manual) Nucleated RBC % Seg Neutrophils # Seg Neutrophils # Man Monocytes # (Manual) PT INR Activated Clotting Time POC ABG pH POC ABG pCO2 POC ABG pO2 Sodium Potassium Chloride Carbon Dioxide BUN Creatinine Glucose POC Glucose 162 H 133 H 138 H Calcium Magnesium Direct Bilirubin AST ALT Alkaline Phosphatase Total Creatine Kinase CK-MB (CK-2) CK-MB (CK-2) Rel Index Troponin T C-Reactive Protein Total Protein Albumin Triglycerides Ur Specific [place] Urine WBC (Auto) Miscellaneous Test 04/29/17 04/29/17 04/29/17 05:15 12:55 17:21 WBC RBC Hgb Hct MCV MCH RDW Plt Count Lymph % (Auto) [place] % (Auto) Eos % (Auto) Baso % (Auto) Lymph # Baso # Seg Neutrophils % Lymphocytes % (Manual) Monocytes % (Manual) Nucleated RBC % Seg Neutrophils # Seg Neutrophils # Man Monocytes # (Manual) PT INR Activated Clotting Time POC ABG pH POC ABG pCO2 POC ABG pO2 Sodium Potassium Chloride Carbon Dioxide BUN Creatinine Glucose POC Glucose 135 H 127 H 138 H Calcium Magnesium Direct Bilirubin AST ALT Alkaline Phosphatase Total Creatine Kinase CK-MB (CK-2) CK-MB (CK-2) Rel Index Troponin T C-Reactive Protein Total Protein Albumin Triglycerides Ur Specific [place] Urine WBC (Auto) Miscellaneous Test 04/29/17 04/30/17 04/30/17 23:52 04:55 12:22 WBC RBC Hgb Hct MCV MCH RDW Plt Count Lymph % (Auto) [place] % (Auto) Eos % (Auto) Baso % (Auto) Lymph # Baso # Seg Neutrophils % Lymphocytes % (Manual) Monocytes % (Manual) Nucleated RBC % Seg Neutrophils # Seg Neutrophils # Man Monocytes # (Manual) PT INR Activated Clotting Time POC ABG pH POC ABG pCO2 POC ABG pO2 Sodium Potassium Chloride Carbon Dioxide BUN Creatinine Glucose POC Glucose 142 H 146 H 132 H Calcium Magnesium Direct Bilirubin AST ALT Alkaline Phosphatase Total Creatine Kinase CK-MB (CK-2) CK-MB (CK-2) Rel Index Troponin T C-Reactive Protein Total Protein Albumin Triglycerides Ur Specific [place] Urine WBC (Auto) Miscellaneous Test 04/30/17 04/30/17 04/30/17 14:25 17:47 18:20 WBC RBC Hgb Hct MCV MCH RDW Plt Count Lymph % (Auto) [place] % (Auto) Eos % (Auto) Baso % (Auto) Lymph # Baso # Seg Neutrophils % Lymphocytes % (Manual) Monocytes % (Manual) Nucleated RBC % Seg Neutrophils # Seg Neutrophils # Man Monocytes # (Manual) PT INR Activated Clotting Time POC ABG pH 7.551 H POC ABG pCO2 32.7 L POC ABG pO2 Sodium Potassium Chloride Carbon Dioxide BUN 21 H Creatinine 0.2 L Glucose 141 H POC Glucose 139 H Calcium Magnesium Direct Bilirubin AST ALT Alkaline Phosphatase Total Creatine Kinase CK-MB (CK-2) CK-MB (CK-2) Rel Index Troponin T C-Reactive Protein Total Protein Albumin Triglycerides Ur Specific [place] Urine WBC (Auto) Miscellaneous Test 05/01/17 05/01/17 05/01/17 01:26 05:30 05:30 WBC RBC 3.49 L Hgb 10.3 L Hct 31.9 L MCV MCH RDW Plt Count Lymph % (Auto) [place] % (Auto) 8.1 H Eos % (Auto) Baso % (Auto) Lymph # Baso # Seg Neutrophils % 71.3 H Lymphocytes % (Manual) Monocytes % (Manual) Nucleated RBC % Seg Neutrophils # Seg Neutrophils # Man Monocytes # (Manual) PT INR Activated Clotting Time POC ABG pH POC ABG pCO2 POC ABG pO2 Sodium 136 L Potassium Chloride 97.6 L Carbon Dioxide BUN Creatinine 0.2 L Glucose 123 H POC Glucose 116 H Calcium Magnesium Direct Bilirubin AST 71 H ALT 125 H Alkaline Phosphatase 158 H Total Creatine Kinase CK-MB (CK-2) CK-MB (CK-2) Rel Index Troponin T C-Reactive Protein Total Protein Albumin 2.6 L Triglycerides Ur Specific [place] Urine WBC (Auto) Miscellaneous Test 05/01/17 05/01/17 05/02/17 11:59 17:23 00:08 WBC RBC Hgb Hct MCV MCH RDW Plt Count Lymph % (Auto) [place] % (Auto) Eos % (Auto) Baso % (Auto) Lymph # Baso # Seg Neutrophils % Lymphocytes % (Manual) Monocytes % (Manual) Nucleated RBC % Seg Neutrophils # Seg Neutrophils # Man Monocytes # (Manual) PT INR Activated Clotting Time POC ABG pH POC ABG pCO2 POC ABG pO2 Sodium Potassium Chloride Carbon Dioxide BUN Creatinine Glucose POC Glucose 118 H 144 H 122 H Calcium Magnesium Direct Bilirubin AST ALT Alkaline Phosphatase Total Creatine Kinase CK-MB (CK-2) CK-MB (CK-2) Rel Index Troponin T C-Reactive Protein Total Protein Albumin Triglycerides Ur Specific [place] Urine WBC (Auto) Miscellaneous Test 05/02/17 05/02/17 05/02/17 05:50 11:21 17:48 WBC RBC Hgb Hct MCV MCH RDW Plt Count Lymph % (Auto) [place] % (Auto) Eos % (Auto) Baso % (Auto) Lymph # Baso # Seg Neutrophils % Lymphocytes % (Manual) Monocytes % (Manual) Nucleated RBC % Seg Neutrophils # Seg Neutrophils # Man Monocytes # (Manual) PT INR Activated Clotting Time POC ABG pH POC ABG pCO2 POC ABG pO2 Sodium Potassium Chloride Carbon Dioxide BUN Creatinine Glucose POC Glucose 120 H 121 H 140 H Calcium Magnesium Direct Bilirubin AST ALT Alkaline Phosphatase Total Creatine Kinase CK-MB (CK-2) CK-MB (CK-2) Rel Index Troponin T C-Reactive Protein Total Protein Albumin Triglycerides Ur Specific [place] Urine WBC (Auto) Miscellaneous Test 05/02/17 05/03/17 05/03/17 23:12 05:35 11:52 WBC RBC Hgb Hct MCV MCH RDW Plt Count Lymph % (Auto) [place] % (Auto) Eos % (Auto) Baso % (Auto) Lymph # Baso # Seg Neutrophils % Lymphocytes % (Manual) Monocytes % (Manual) Nucleated RBC % Seg Neutrophils # Seg Neutrophils # Man Monocytes # (Manual) PT INR Activated Clotting Time POC ABG pH POC ABG pCO2 POC ABG pO2 Sodium Potassium Chloride Carbon Dioxide BUN Creatinine Glucose POC Glucose 128 H 113 H 126 H Calcium Magnesium Direct Bilirubin AST ALT Alkaline Phosphatase Total Creatine Kinase CK-MB (CK-2) CK-MB (CK-2) Rel Index Troponin T C-Reactive Protein Total Protein Albumin Triglycerides Ur Specific [place] Urine WBC (Auto) Miscellaneous Test 05/03/17 05/03/17 05/04/17 17:29 23:26 04:55 WBC RBC Hgb Hct MCV MCH RDW Plt Count Lymph % (Auto) [place] % (Auto) Eos % (Auto) Baso % (Auto) Lymph # Baso # Seg Neutrophils % Lymphocytes % (Manual) Monocytes % (Manual) Nucleated RBC % Seg Neutrophils # Seg Neutrophils # Man Monocytes # (Manual) PT INR Activated Clotting Time POC ABG pH POC ABG pCO2 POC ABG pO2 Sodium Potassium Chloride Carbon Dioxide BUN Creatinine Glucose POC Glucose 141 H 129 H 126 H Calcium Magnesium Direct Bilirubin AST ALT Alkaline Phosphatase Total Creatine Kinase CK-MB (CK-2) CK-MB (CK-2) Rel Index Troponin T C-Reactive Protein Total Protein Albumin Triglycerides Ur Specific [place] Urine WBC (Auto) Miscellaneous Test 05/04/17 05/04/17 05/05/17 12:09 17:46 00:06 WBC RBC Hgb Hct MCV MCH RDW Plt Count Lymph % (Auto) [place] % (Auto) Eos % (Auto) Baso % (Auto) Lymph # Baso # Seg Neutrophils % Lymphocytes % (Manual) Monocytes % (Manual) Nucleated RBC % Seg Neutrophils # Seg Neutrophils # Man Monocytes # (Manual) PT INR Activated Clotting Time POC ABG pH POC ABG pCO2 POC ABG pO2 Sodium Potassium Chloride Carbon Dioxide BUN Creatinine Glucose POC Glucose 125 H 125 H 110 H Calcium Magnesium Direct Bilirubin AST ALT Alkaline Phosphatase Total Creatine Kinase CK-MB (CK-2) CK-MB (CK-2) Rel Index Troponin T C-Reactive Protein Total Protein Albumin Triglycerides Ur Specific [place] Urine WBC (Auto) Miscellaneous Test 05/05/17 05/05/17 05/05/17 05:48 11:41 16:19 WBC RBC Hgb Hct MCV MCH RDW Plt Count Lymph % (Auto) [place] % (Auto) Eos % (Auto) Baso % (Auto) Lymph # Baso # Seg Neutrophils % Lymphocytes % (Manual) Monocytes % (Manual) Nucleated RBC % Seg Neutrophils # Seg Neutrophils # Man Monocytes # (Manual) PT INR Activated Clotting Time POC ABG pH POC ABG pCO2 POC ABG pO2 Sodium Potassium Chloride Carbon Dioxide BUN Creatinine Glucose POC Glucose 124 H 122 H 120 H Calcium Magnesium Direct Bilirubin AST ALT Alkaline Phosphatase Total Creatine Kinase CK-MB (CK-2) CK-MB (CK-2) Rel Index Troponin T C-Reactive Protein Total Protein Albumin Triglycerides Ur Specific [place] Urine WBC (Auto) Miscellaneous Test 05/06/17 05/06/17 05/06/17 00:16 05:47 11:42 WBC RBC Hgb Hct MCV MCH RDW Plt Count Lymph % (Auto) [place] % (Auto) Eos % (Auto) Baso % (Auto) Lymph # Baso # Seg Neutrophils % Lymphocytes % (Manual) Monocytes % (Manual) Nucleated RBC % Seg Neutrophils # Seg Neutrophils # Man Monocytes # (Manual) PT INR Activated Clotting Time POC ABG pH POC ABG pCO2 POC ABG pO2 Sodium Potassium Chloride Carbon Dioxide BUN Creatinine Glucose POC Glucose 110 H 142 H 120 H Calcium Magnesium Direct Bilirubin AST ALT Alkaline Phosphatase Total Creatine Kinase CK-MB (CK-2) CK-MB (CK-2) Rel Index Troponin T C-Reactive Protein Total Protein Albumin Triglycerides Ur Specific [place] Urine WBC (Auto) Miscellaneous Test 05/06/17 05/07/17 05/07/17 17:46 00:07 05:28 WBC RBC Hgb Hct MCV MCH RDW Plt Count Lymph % (Auto) [place] % (Auto) Eos % (Auto) Baso % (Auto) Lymph # Baso # Seg Neutrophils % Lymphocytes % (Manual) Monocytes % (Manual) Nucleated RBC % Seg Neutrophils # Seg Neutrophils # Man Monocytes # (Manual) PT INR Activated Clotting Time POC ABG pH POC ABG pCO2 POC ABG pO2 Sodium Potassium Chloride Carbon Dioxide BUN Creatinine Glucose POC Glucose 127 H 145 H 124 H Calcium Magnesium Direct Bilirubin AST ALT Alkaline Phosphatase Total Creatine Kinase CK-MB (CK-2) CK-MB (CK-2) Rel Index Troponin T C-Reactive Protein Total Protein Albumin Triglycerides Ur Specific [place] Urine WBC (Auto) Miscellaneous Test 05/07/17 05/07/17 05/08/17 11:17 17:14 00:03 WBC RBC Hgb Hct MCV MCH RDW Plt Count Lymph % (Auto) [place] % (Auto) Eos % (Auto) Baso % (Auto) Lymph # Baso # Seg Neutrophils % Lymphocytes % (Manual) Monocytes % (Manual) Nucleated RBC % Seg Neutrophils # Seg Neutrophils # Man Monocytes # (Manual) PT INR Activated Clotting Time POC ABG pH POC ABG pCO2 POC ABG pO2 Sodium Potassium Chloride Carbon Dioxide BUN Creatinine Glucose POC Glucose 144 H 125 H 122 H Calcium Magnesium Direct Bilirubin AST ALT Alkaline Phosphatase Total Creatine Kinase CK-MB (CK-2) CK-MB (CK-2) Rel Index Troponin T C-Reactive Protein Total Protein Albumin Triglycerides Ur Specific [place] Urine WBC (Auto) Miscellaneous Test 05/08/17 05/08/17 05/08/17 05:43 12:07 18:02 WBC RBC Hgb Hct MCV MCH RDW Plt Count Lymph % (Auto) [place] % (Auto) Eos % (Auto) Baso % (Auto) Lymph # Baso # Seg Neutrophils % Lymphocytes % (Manual) Monocytes % (Manual) Nucleated RBC % Seg Neutrophils # Seg Neutrophils # Man Monocytes # (Manual) PT INR Activated Clotting Time POC ABG pH POC ABG pCO2 POC ABG pO2 Sodium Potassium Chloride Carbon Dioxide BUN Creatinine Glucose POC Glucose 117 H 114 H 129 H Calcium Magnesium Direct Bilirubin AST ALT Alkaline Phosphatase Total Creatine Kinase CK-MB (CK-2) CK-MB (CK-2) Rel Index Troponin T C-Reactive Protein Total Protein Albumin Triglycerides Ur Specific [place] Urine WBC (Auto) Miscellaneous Test 05/08/17 05/09/17 05/09/17 23:53 04:19 05:14 WBC RBC Hgb Hct MCV MCH RDW Plt Count Lymph % (Auto) [place] % (Auto) Eos % (Auto) Baso % (Auto) Lymph # Baso # Seg Neutrophils % Lymphocytes % (Manual) Monocytes % (Manual) Nucleated RBC % Seg Neutrophils # Seg Neutrophils # Man Monocytes # (Manual) PT INR Activated Clotting Time POC ABG pH 7.524 H POC ABG pCO2 34.7 L POC ABG pO2 107 H Sodium Potassium Chloride Carbon Dioxide BUN Creatinine Glucose POC Glucose 125 H 118 H Calcium Magnesium Direct Bilirubin AST ALT Alkaline Phosphatase Total Creatine Kinase CK-MB (CK-2) CK-MB (CK-2) Rel Index Troponin T C-Reactive Protein Total Protein Albumin Triglycerides Ur Specific [place] Urine WBC (Auto) Miscellaneous Test 05/10/17 05/11/17 05/11/17 23:54 05:48 23:50 WBC RBC Hgb Hct MCV MCH RDW Plt Count Lymph % (Auto) [place] % (Auto) Eos % (Auto) Baso % (Auto) Lymph # Baso # Seg Neutrophils % Lymphocytes % (Manual) Monocytes % (Manual) Nucleated RBC % Seg Neutrophils # Seg Neutrophils # Man Monocytes # (Manual) PT INR Activated Clotting Time POC ABG pH POC ABG pCO2 POC ABG pO2 Sodium Potassium Chloride Carbon Dioxide BUN Creatinine Glucose POC Glucose 126 H 137 H 130 H Calcium Magnesium Direct Bilirubin AST ALT Alkaline Phosphatase Total Creatine Kinase CK-MB (CK-2) CK-MB (CK-2) Rel Index Troponin T C-Reactive Protein Total Protein Albumin Triglycerides Ur Specific [place] Urine WBC (Auto) Miscellaneous Test 05/12/17 05/12/17 05/12/17 05:48 11:33 18:00 WBC RBC Hgb Hct MCV MCH RDW Plt Count Lymph % (Auto) [place] % (Auto) Eos % (Auto) Baso % (Auto) Lymph # Baso # Seg Neutrophils % Lymphocytes % (Manual) Monocytes % (Manual) Nucleated RBC % Seg Neutrophils # Seg Neutrophils # Man Monocytes # (Manual) PT INR Activated Clotting Time POC ABG pH POC ABG pCO2 POC ABG pO2 Sodium Potassium Chloride Carbon Dioxide BUN Creatinine Glucose POC Glucose 126 H 116 H 131 H Calcium Magnesium Direct Bilirubin AST ALT Alkaline Phosphatase Total Creatine Kinase CK-MB (CK-2) CK-MB (CK-2) Rel Index Troponin T C-Reactive Protein Total Protein Albumin Triglycerides Ur Specific [place] Urine WBC (Auto) Miscellaneous Test 05/14/17 05/15/17 05/15/17 11:45 11:27 17:42 WBC RBC Hgb Hct MCV MCH RDW Plt Count Lymph % (Auto) [place] % (Auto) Eos % (Auto) Baso % (Auto) Lymph # Baso # Seg Neutrophils % Lymphocytes % (Manual) Monocytes % (Manual) Nucleated RBC % Seg Neutrophils # Seg Neutrophils # Man Monocytes # (Manual) PT INR Activated Clotting Time POC ABG pH POC ABG pCO2 POC ABG pO2 Sodium Potassium Chloride Carbon Dioxide BUN Creatinine Glucose POC Glucose 123 H 129 H 125 H Calcium Magnesium Direct Bilirubin AST ALT Alkaline Phosphatase Total Creatine Kinase CK-MB (CK-2) CK-MB (CK-2) Rel Index Troponin T C-Reactive Protein Total Protein Albumin Triglycerides Ur Specific [place] Urine WBC (Auto) Miscellaneous Test 05/16/17 05/16/17 05/17/17 00:29 06:50 03:45 WBC RBC Hgb 11.7 L Hct 34.8 L MCV MCH RDW 15.5 H Plt Count Lymph % (Auto) [place] % (Auto) 7.7 H Eos % (Auto) Baso % (Auto) Lymph # Baso # Seg Neutrophils % 73.7 H Lymphocytes % (Manual) Monocytes % (Manual) Nucleated RBC % Seg Neutrophils # Seg Neutrophils # Man Monocytes # (Manual) PT INR Activated Clotting Time POC ABG pH POC ABG pCO2 POC ABG pO2 Sodium Potassium Chloride Carbon Dioxide BUN Creatinine Glucose POC Glucose 141 H 138 H Calcium Magnesium Direct Bilirubin AST ALT Alkaline Phosphatase Total Creatine Kinase CK-MB (CK-2) CK-MB (CK-2) Rel Index Troponin T C-Reactive Protein Total Protein Albumin Triglycerides Ur Specific [place] Urine WBC (Auto) Miscellaneous Test 05/17/17 05/20/17 05/23/17 03:45 17:31 23:09 WBC RBC Hgb Hct MCV MCH RDW Plt Count Lymph % (Auto) [place] % (Auto) Eos % (Auto) Baso % (Auto) Lymph # Baso # Seg Neutrophils % Lymphocytes % (Manual) Monocytes % (Manual) Nucleated RBC % Seg Neutrophils # Seg Neutrophils # Man Monocytes # (Manual) PT INR Activated Clotting Time POC ABG pH POC ABG pCO2 POC ABG pO2 Sodium Potassium Chloride Carbon Dioxide BUN Creatinine 0.2 L Glucose 131 H POC Glucose 116 H 122 H Calcium Magnesium Direct Bilirubin AST ALT Alkaline Phosphatase Total Creatine Kinase CK-MB (CK-2) CK-MB (CK-2) Rel Index Troponin T C-Reactive Protein Total Protein Albumin Triglycerides Ur Specific [place] Urine WBC (Auto) Miscellaneous Test 05/24/17 05/26/17 05/27/17 05:37 05:23 01:16 WBC RBC Hgb Hct MCV MCH RDW Plt Count Lymph % (Auto) [place] % (Auto) Eos % (Auto) Baso % (Auto) Lymph # Baso # Seg Neutrophils % Lymphocytes % (Manual) Monocytes % (Manual) Nucleated RBC % Seg Neutrophils # Seg Neutrophils # Man Monocytes # (Manual) PT INR Activated Clotting Time POC ABG pH POC ABG pCO2 POC ABG pO2 Sodium Potassium Chloride Carbon Dioxide BUN Creatinine Glucose POC Glucose 139 H 108 H 126 H Calcium Magnesium Direct Bilirubin AST ALT Alkaline Phosphatase Total Creatine Kinase CK-MB (CK-2) CK-MB (CK-2) Rel Index Troponin T C-Reactive Protein Total Protein Albumin Triglycerides Ur Specific [place] Urine WBC (Auto) Miscellaneous Test 05/27/17 05/27/17 05/29/17 05:33 21:49 04:37 WBC RBC Hgb Hct MCV MCH RDW 15.5 H Plt Count Lymph % (Auto) [place] % (Auto) Eos % (Auto) Baso % (Auto) Lymph # Baso # Seg Neutrophils % Lymphocytes % (Manual) Monocytes % (Manual) Nucleated RBC % Seg Neutrophils # Seg Neutrophils # Man Monocytes # (Manual) PT INR Activated Clotting Time POC ABG pH POC ABG pCO2 POC ABG pO2 Sodium Potassium Chloride Carbon Dioxide BUN Creatinine Glucose POC Glucose 129 H 110 H Calcium Magnesium Direct Bilirubin AST ALT Alkaline Phosphatase Total Creatine Kinase CK-MB (CK-2) CK-MB (CK-2) Rel Index Troponin T C-Reactive Protein Total Protein Albumin Triglycerides Ur Specific [place] Urine WBC (Auto) Miscellaneous Test 05/29/17 06/01/17 06/08/17 04:37 05:28 22:45 WBC RBC Hgb Hct MCV MCH RDW Plt Count Lymph % (Auto) [place] % (Auto) Eos % (Auto) Baso % (Auto) Lymph # Baso # Seg Neutrophils % Lymphocytes % (Manual) Monocytes % (Manual) Nucleated RBC % Seg Neutrophils # Seg Neutrophils # Man Monocytes # (Manual) PT INR Activated Clotting Time POC ABG pH POC ABG pCO2 POC ABG pO2 Sodium Potassium Chloride 97.6 L Carbon Dioxide BUN Creatinine 0.2 L Glucose 121 H POC Glucose 133 H 110 H Calcium Magnesium Direct Bilirubin AST ALT Alkaline Phosphatase Total Creatine Kinase CK-MB (CK-2) CK-MB (CK-2) Rel Index Troponin T C-Reactive Protein Total Protein Albumin Triglycerides Ur Specific [place] Urine WBC (Auto) Miscellaneous Test 06/09/17 06/09/17 06/09/17 14:50 18:29 22:12 WBC RBC Hgb Hct MCV MCH RDW Plt Count Lymph % (Auto) [place] % (Auto) Eos % (Auto) Baso % (Auto) Lymph # Baso # Seg Neutrophils % Lymphocytes % (Manual) Monocytes % (Manual) Nucleated RBC % Seg Neutrophils # Seg Neutrophils # Man Monocytes # (Manual) PT INR Activated Clotting Time POC ABG pH 7.496 H POC ABG pCO2 33.7 L POC ABG pO2 Sodium Potassium Chloride Carbon Dioxide BUN Creatinine Glucose POC Glucose 121 H 109 H Calcium Magnesium Direct Bilirubin AST ALT Alkaline Phosphatase Total Creatine Kinase CK-MB (CK-2) CK-MB (CK-2) Rel Index Troponin T C-Reactive Protein Total Protein Albumin Triglycerides Ur Specific [place] Urine WBC (Auto) Miscellaneous Test 06/10/17 06/10/17 06/10/17 05:05 13:00 18:11 WBC RBC Hgb Hct MCV MCH RDW Plt Count Lymph % (Auto) [place] % (Auto) Eos % (Auto) Baso % (Auto) Lymph # Baso # Seg Neutrophils % Lymphocytes % (Manual) Monocytes % (Manual) Nucleated RBC % Seg Neutrophils # Seg Neutrophils # Man Monocytes # (Manual) PT INR Activated Clotting Time POC ABG pH POC ABG pCO2 POC ABG pO2 Sodium Potassium Chloride Carbon Dioxide BUN Creatinine Glucose POC Glucose 123 H 130 H 117 H Calcium Magnesium Direct Bilirubin AST ALT Alkaline Phosphatase Total Creatine Kinase CK-MB (CK-2) CK-MB (CK-2) Rel Index Troponin T C-Reactive Protein Total Protein Albumin Triglycerides Ur Specific [place] Urine WBC (Auto) Miscellaneous Test 06/10/17 06/11/17 06/12/17 21:22 16:02 05:10 WBC RBC Hgb Hct MCV MCH RDW 15.5 H Plt Count Lymph % (Auto) [place] % (Auto) 8.2 H Eos % (Auto) Baso % (Auto) Lymph # Baso # Seg Neutrophils % Lymphocytes % (Manual) Monocytes % (Manual) Nucleated RBC % Seg Neutrophils # Seg Neutrophils # Man Monocytes # (Manual) PT INR Activated Clotting Time POC ABG pH POC ABG pCO2 POC ABG pO2 Sodium Potassium Chloride Carbon Dioxide BUN Creatinine Glucose POC Glucose 113 H 125 H Calcium Magnesium Direct Bilirubin AST ALT Alkaline Phosphatase Total Creatine Kinase CK-MB (CK-2) CK-MB (CK-2) Rel Index Troponin T C-Reactive Protein Total Protein Albumin Triglycerides Ur Specific [place] Urine WBC (Auto) Miscellaneous Test 06/12/17 06/12/17 06/12/17 05:10 11:37 17:25 WBC RBC Hgb Hct MCV MCH RDW Plt Count Lymph % (Auto) [place] % (Auto) Eos % (Auto) Baso % (Auto) Lymph # Baso # Seg Neutrophils % Lymphocytes % (Manual) Monocytes % (Manual) Nucleated RBC % Seg Neutrophils # Seg Neutrophils # Man Monocytes # (Manual) PT INR Activated Clotting Time POC ABG pH POC ABG pCO2 POC ABG pO2 Sodium Potassium Chloride Carbon Dioxide BUN Creatinine 0.3 L Glucose 134 H POC Glucose 142 H 115 H Calcium Magnesium Direct Bilirubin AST ALT Alkaline Phosphatase Total Creatine Kinase CK-MB (CK-2) CK-MB (CK-2) Rel Index Troponin T C-Reactive Protein Total Protein Albumin Triglycerides Ur Specific [place] Urine WBC (Auto) Miscellaneous Test 06/13/17 06/13/17 06/13/17 06:54 11:26 18:39 WBC RBC Hgb Hct MCV MCH RDW Plt Count Lymph % (Auto) [place] % (Auto) Eos % (Auto) Baso % (Auto) Lymph # Baso # Seg Neutrophils % Lymphocytes % (Manual) Monocytes % (Manual) Nucleated RBC % Seg Neutrophils # Seg Neutrophils # Man Monocytes # (Manual) PT INR Activated Clotting Time POC ABG pH POC ABG pCO2 POC ABG pO2 Sodium Potassium Chloride Carbon Dioxide BUN Creatinine Glucose POC Glucose 141 H 112 H 123 H Calcium Magnesium Direct Bilirubin AST ALT Alkaline Phosphatase Total Creatine Kinase CK-MB (CK-2) CK-MB (CK-2) Rel Index Troponin T C-Reactive Protein Total Protein Albumin Triglycerides Ur Specific [place] Urine WBC (Auto) Miscellaneous Test 06/14/17 06/14/17 02:39 06:18 WBC RBC Hgb Hct MCV MCH RDW Plt Count Lymph % (Auto) [place] % (Auto) Eos % (Auto) Baso % (Auto) Lymph # Baso # Seg Neutrophils % Lymphocytes % (Manual) Monocytes % (Manual) Nucleated RBC % Seg Neutrophils # Seg Neutrophils # Man Monocytes # (Manual) PT INR Activated Clotting Time POC ABG pH POC ABG pCO2 POC ABG pO2 Sodium Potassium Chloride Carbon Dioxide BUN Creatinine Glucose POC Glucose 119 H 112 H Calcium Magnesium Direct Bilirubin AST ALT Alkaline Phosphatase Total Creatine Kinase CK-MB (CK-2) CK-MB (CK-2) Rel Index Troponin T C-Reactive Protein Total Protein Albumin Triglycerides Ur Specific [place] Urine WBC (Auto) Miscellaneous Test
[2017-06-14] MEDS: CORDARONE PO SCH ×3 (12:50→22:05)
[2017-06-14] MEDS: LOPRESSOR PO SCH ×2 (12:51→22:05)
[2017-06-14] MEDS: PLAVIX PO SCH (12:52)
[2017-06-14] MEDS: ELIQUIS PO SCH ×2 (12:52→22:05)
[2017-06-14] MEDS: ASPIRIN PO SCH (12:52)
[2017-06-14] MEDS: PROTONIX FEEDTUBE SCH (12:53)
[2017-06-14] MEDS: ZESTRIL PO SCH (12:53)
[2017-06-15] MEDS: ZESTRIL PO SCH (09:43)
[2017-06-15] MEDS: PROTONIX FEEDTUBE SCH (09:44)
[2017-06-15] MEDS: ASPIRIN PO SCH (09:45)
[2017-06-15] MEDS: CORDARONE PO SCH ×2 (09:45→21:13)
[2017-06-15] MEDS: PLAVIX PO SCH (09:45)
[2017-06-15] MEDS: ELIQUIS PO SCH ×2 (09:45→21:13)
[2017-06-15] MEDS: LOPRESSOR PO SCH ×2 (09:45→21:12)
--- NOTE | 2017-06-15 13:23 | Progress Note ---
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 Neutrophils # 10.7 H Seg Neutrophils # Man Monocytes # (Manual) PT INR Activated Clotting Time POC ABG pH POC ABG pCO2 POC ABG pO2 Sodium Potassium Chloride Carbon Dioxide BUN Creatinine Glucose POC Glucose 133 H 133 H Calcium Magnesium Direct Bilirubin AST ALT Alkaline Phosphatase Total Creatine Kinase CK-MB (CK-2) CK-MB (CK-2) Rel Index Troponin T C-Reactive Protein Total Protein Albumin Triglycerides Ur Specific [place] Urine WBC (Auto) Miscellaneous Test 04/15/17 04/15/17 04/15/17 05:15 05:25 11:50 WBC RBC Hgb Hct MCV MCH RDW Plt Count Lymph % (Auto) [place] % (Auto) Eos % (Auto) Baso % (Auto) Lymph # Baso # Seg Neutrophils % Lymphocytes % (Manual) Monocytes % (Manual) Nucleated RBC % Seg Neutrophils # Seg Neutrophils # Man Monocytes # (Manual) PT INR Activated Clotting Time POC ABG pH POC ABG pCO2 POC ABG pO2 Sodium 149 H Potassium 3.5 L Chloride 114.1 H Carbon Dioxide 21 L BUN 29 H Creatinine 0.4 L Glucose 128 H POC Glucose 133 H 107 H Calcium 8.3 L Magnesium Direct Bilirubin 0.4 H AST 149 H ALT 182 H Alkaline Phosphatase 143 H Total Creatine Kinase CK-MB (CK-2) CK-MB (CK-2) Rel Index Troponin T C-Reactive Protein Total Protein Albumin 2.5 L Triglycerides Ur Specific [place] Urine WBC (Auto) Miscellaneous Test 04/15/17 04/16/17 04/16/17 16:55 00:02 03:17 WBC RBC 3.39 L Hgb 10.5 L Hct 32.4 L MCV 96 H MCH RDW Plt Count 106 L Lymph % (Auto) 6.7 L [place] % (Auto) Eos % (Auto) Baso % (Auto) Lymph # 0.6 L Baso # Seg Neutrophils % 86.8 H Lymphocytes % (Manual) Monocytes % (Manual) Nucleated RBC % Seg Neutrophils # 8.2 H Seg Neutrophils # Man Monocytes # (Manual) PT INR Activated Clotting Time POC ABG pH POC ABG pCO2 POC ABG pO2 Sodium Potassium Chloride Carbon Dioxide BUN Creatinine Glucose POC Glucose 146 H 148 H Calcium Magnesium Direct Bilirubin AST ALT Alkaline Phosphatase Total Creatine Kinase CK-MB (CK-2) CK-MB (CK-2) Rel Index Troponin T C-Reactive Protein Total Protein Albumin Triglycerides Ur Specific [place] Urine WBC (Auto) Miscellaneous Test 04/16/17 04/16/17 04/16/17 03:17 05:19 11:13 WBC RBC Hgb Hct MCV MCH RDW Plt Count Lymph % (Auto) [place] % (Auto) Eos % (Auto) Baso % (Auto) Lymph # Baso # Seg Neutrophils % Lymphocytes % (Manual) Monocytes % (Manual) Nucleated RBC % Seg Neutrophils # Seg Neutrophils # Man Monocytes # (Manual) PT INR Activated Clotting Time POC ABG pH POC ABG pCO2 POC ABG pO2 Sodium 149 H Potassium Chloride 111.1 H Carbon Dioxide 20 L BUN 27 H Creatinine 0.3 L Glucose 156 H POC Glucose 171 H 169 H Calcium 8.3 L Magnesium Direct Bilirubin AST ALT Alkaline Phosphatase Total Creatine Kinase CK-MB (CK-2) CK-MB (CK-2) Rel Index Troponin T C-Reactive Protein Total Protein Albumin Triglycerides Ur Specific [place] Urine WBC (Auto) Miscellaneous Test 04/16/17 04/17/17 04/17/17 17:03 00:00 05:09 WBC RBC Hgb Hct MCV MCH RDW Plt Count Lymph % (Auto) [place] % (Auto) Eos % (Auto) Baso % (Auto) Lymph # Baso # Seg Neutrophils % Lymphocytes % (Manual) Monocytes % (Manual) Nucleated RBC % Seg Neutrophils # Seg Neutrophils # Man Monocytes # (Manual) PT INR Activated Clotting Time POC ABG pH POC ABG pCO2 POC ABG pO2 Sodium Potassium Chloride Carbon Dioxide BUN Creatinine Glucose POC Glucose 151 H 165 H 145 H Calcium Magnesium Direct Bilirubin AST ALT Alkaline Phosphatase Total Creatine Kinase CK-MB (CK-2) CK-MB (CK-2) Rel Index Troponin T C-Reactive Protein Total Protein Albumin Triglycerides Ur Specific [place] Urine WBC (Auto) Miscellaneous Test 04/17/17 04/17/17 04/18/17 11:38 17:47 00:01 WBC RBC Hgb Hct MCV MCH RDW Plt Count Lymph % (Auto) [place] % (Auto) Eos % (Auto) Baso % (Auto) Lymph # Baso # Seg Neutrophils % Lymphocytes % (Manual) Monocytes % (Manual) Nucleated RBC % Seg Neutrophils # Seg Neutrophils # Man Monocytes # (Manual) PT INR Activated Clotting Time POC ABG pH POC ABG pCO2 POC ABG pO2 Sodium Potassium Chloride Carbon Dioxide BUN Creatinine Glucose POC Glucose 170 H 161 H 131 H Calcium Magnesium Direct Bilirubin AST ALT Alkaline Phosphatase Total Creatine Kinase CK-MB (CK-2) CK-MB (CK-2) Rel Index Troponin T C-Reactive Protein Total Protein Albumin Triglycerides Ur Specific [place] Urine WBC (Auto) Miscellaneous Test 04/18/17 04/18/17 04/18/17 03:55 03:55 05:30 WBC RBC 3.05 L Hgb 9.8 L Hct 29.0 L MCV 95 H MCH RDW Plt Count 113 L Lymph % (Auto) [place] % (Auto) Eos % (Auto) 5.3 H Baso % (Auto) Lymph # Baso # Seg Neutrophils % 71.5 H Lymphocytes % (Manual) Monocytes % (Manual) Nucleated RBC % Seg Neutrophils # Seg Neutrophils # Man Monocytes # (Manual) PT INR Activated Clotting Time POC ABG pH 7.460 H POC ABG pCO2 30.8 L POC ABG pO2 129 H Sodium Potassium Chloride Carbon Dioxide 21 L BUN 25 H Creatinine 0.4 L Glucose 123 H POC Glucose Calcium 8.3 L Magnesium Direct Bilirubin AST ALT Alkaline Phosphatase Total Creatine Kinase CK-MB (CK-2) CK-MB (CK-2) Rel Index Troponin T C-Reactive Protein Total Protein Albumin Triglycerides Ur Specific [place] Urine WBC (Auto) Miscellaneous Test 04/18/17 04/18/17 04/19/17 17:10 23:40 04:36 WBC RBC 3.21 L Hgb 10.2 L Hct 30.4 L MCV 95 H MCH RDW Plt Count 131 L Lymph % (Auto) 12.1 L [place] % (Auto) Eos % (Auto) 4.7 H Baso % (Auto) 2.4 H Lymph # 0.9 L Baso # 0.2 H Seg Neutrophils % 75.0 H Lymphocytes % (Manual) Monocytes % (Manual) Nucleated RBC % Seg Neutrophils # Seg Neutrophils # Man Monocytes # (Manual) PT INR Activated Clotting Time POC ABG pH POC ABG pCO2 POC ABG pO2 Sodium Potassium Chloride Carbon Dioxide BUN Creatinine Glucose POC Glucose 135 H 157 H Calcium Magnesium Direct Bilirubin AST ALT Alkaline Phosphatase Total Creatine Kinase CK-MB (CK-2) CK-MB (CK-2) Rel Index Troponin T C-Reactive Protein Total Protein Albumin Triglycerides Ur Specific [place] Urine WBC (Auto) Miscellaneous Test 04/19/17 04/19/17 04/19/17 04:36 05:12 06:50 WBC RBC Hgb Hct MCV MCH RDW Plt Count Lymph % (Auto) [place] % (Auto) Eos % (Auto) Baso % (Auto) Lymph # Baso # Seg Neutrophils % Lymphocytes % (Manual) Monocytes % (Manual) Nucleated RBC % Seg Neutrophils # Seg Neutrophils # Man Monocytes # (Manual) PT INR Activated Clotting Time POC ABG pH 7.516 H POC ABG pCO2 28.0 L POC ABG pO2 Sodium Potassium Chloride Carbon Dioxide 21 L BUN 23 H Creatinine 0.2 L Glucose 137 H POC Glucose 131 H Calcium 7.9 L Magnesium Direct Bilirubin AST ALT Alkaline Phosphatase Total Creatine Kinase CK-MB (CK-2) CK-MB (CK-2) Rel Index Troponin T C-Reactive Protein Total Protein Albumin Triglycerides Ur Specific [place] Urine WBC (Auto) Miscellaneous Test 04/19/17 04/19/17 04/20/17 12:36 17:42 00:12 WBC RBC Hgb Hct MCV MCH RDW Plt Count Lymph % (Auto) [place] % (Auto) Eos % (Auto) Baso % (Auto) Lymph # Baso # Seg Neutrophils % Lymphocytes % (Manual) Monocytes % (Manual) Nucleated RBC % Seg Neutrophils # Seg Neutrophils # Man Monocytes # (Manual) PT INR Activated Clotting Time POC ABG pH POC ABG pCO2 POC ABG pO2 Sodium Potassium Chloride Carbon Dioxide BUN Creatinine Glucose POC Glucose 128 H 140 H 132 H Calcium Magnesium Direct Bilirubin AST ALT Alkaline Phosphatase Total Creatine Kinase CK-MB (CK-2) CK-MB (CK-2) Rel Index Troponin T C-Reactive Protein Total Protein Albumin Triglycerides Ur Specific [place] Urine WBC (Auto) Miscellaneous Test 04/20/17 04/20/17 04/20/17 03:35 03:35 05:10 WBC RBC 3.34 L Hgb 10.4 L Hct 31.6 L MCV 95 H MCH RDW Plt Count Lymph % (Auto) 12.9 L [place] % (Auto) Eos % (Auto) Baso % (Auto) Lymph # Baso # Seg Neutrophils % 77.3 H Lymphocytes % (Manual) Monocytes % (Manual) Nucleated RBC % Seg Neutrophils # Seg Neutrophils # Man Monocytes # (Manual) PT INR Activated Clotting Time POC ABG pH POC ABG pCO2 POC ABG pO2 Sodium Potassium Chloride Carbon Dioxide BUN Creatinine 0.3 L Glucose 155 H POC Glucose 135 H Calcium 7.8 L Magnesium Direct Bilirubin AST ALT Alkaline Phosphatase Total Creatine Kinase CK-MB (CK-2) CK-MB (CK-2) Rel Index Troponin T C-Reactive Protein Total Protein Albumin Triglycerides Ur Specific [place] Urine WBC (Auto) Miscellaneous Test 04/20/17 04/20/17 04/21/17 12:49 18:21 00:05 WBC RBC Hgb Hct MCV MCH RDW Plt Count Lymph % (Auto) [place] % (Auto) Eos % (Auto) Baso % (Auto) Lymph # Baso # Seg Neutrophils % Lymphocytes % (Manual) Monocytes % (Manual) Nucleated RBC % Seg Neutrophils # Seg Neutrophils # Man Monocytes # (Manual) PT INR Activated Clotting Time POC ABG pH POC ABG pCO2 POC ABG pO2 Sodium Potassium Chloride Carbon Dioxide BUN Creatinine Glucose POC Glucose 155 H 165 H 141 H Calcium Magnesium Direct Bilirubin AST ALT Alkaline Phosphatase Total Creatine Kinase CK-MB (CK-2) CK-MB (CK-2) Rel Index Troponin T C-Reactive Protein Total Protein Albumin Triglycerides Ur Specific [place] Urine WBC (Auto) Miscellaneous Test 04/21/17 04/21/17 04/21/17 06:00 12:11 17:04 WBC RBC Hgb Hct MCV MCH RDW Plt Count Lymph % (Auto) [place] % (Auto) Eos % (Auto) Baso % (Auto) Lymph # Baso # Seg Neutrophils % Lymphocytes % (Manual) Monocytes % (Manual) Nucleated RBC % Seg Neutrophils # Seg Neutrophils # Man Monocytes # (Manual) PT INR Activated Clotting Time POC ABG pH POC ABG pCO2 POC ABG pO2 Sodium Potassium Chloride Carbon Dioxide BUN Creatinine Glucose POC Glucose 152 H 165 H 156 H Calcium Magnesium Direct Bilirubin AST ALT Alkaline Phosphatase Total Creatine Kinase CK-MB (CK-2) CK-MB (CK-2) Rel Index Troponin T C-Reactive Protein Total Protein Albumin Triglycerides Ur Specific [place] Urine WBC (Auto) Miscellaneous Test 04/21/17 04/21/17 04/22/17 22:00 23:59 05:49 WBC RBC Hgb Hct MCV MCH RDW Plt Count Lymph % (Auto) [place] % (Auto) Eos % (Auto) Baso % (Auto) Lymph # Baso # Seg Neutrophils % Lymphocytes % (Manual) Monocytes % (Manual) Nucleated RBC % Seg Neutrophils # Seg Neutrophils # Man Monocytes # (Manual) PT INR Activated Clotting Time POC ABG pH POC ABG pCO2 POC ABG pO2 Sodium Potassium Chloride Carbon Dioxide BUN Creatinine Glucose POC Glucose 166 H 173 H Calcium Magnesium Direct Bilirubin AST ALT Alkaline Phosphatase Total Creatine Kinase CK-MB (CK-2) CK-MB (CK-2) Rel Index Troponin T C-Reactive Protein Total Protein Albumin Triglycerides Ur Specific [place] Urine WBC (Auto) 10.0 H Miscellaneous Test 04/22/17 04/22/17 04/23/17 11:11 18:04 00:37 WBC RBC Hgb Hct MCV MCH RDW Plt Count Lymph % (Auto) [place] % (Auto) Eos % (Auto) Baso % (Auto) Lymph # Baso # Seg Neutrophils % Lymphocytes % (Manual) Monocytes % (Manual) Nucleated RBC % Seg Neutrophils # Seg Neutrophils # Man Monocytes # (Manual) PT INR Activated Clotting Time POC ABG pH POC ABG pCO2 POC ABG pO2 Sodium Potassium Chloride Carbon Dioxide BUN Creatinine Glucose POC Glucose 172 H 140 H 135 H Calcium Magnesium Direct Bilirubin AST ALT Alkaline Phosphatase Total Creatine Kinase CK-MB (CK-2) CK-MB (CK-2) Rel Index Troponin T C-Reactive Protein Total Protein Albumin Triglycerides Ur Specific [place] Urine WBC (Auto) Miscellaneous Test 04/23/17 04/23/17 04/23/17 05:33 06:20 11:10 WBC RBC 3.19 L Hgb 9.9 L Hct 30.0 L MCV MCH RDW Plt Count Lymph % (Auto) 8.0 L [place] % (Auto) Eos % (Auto) Baso % (Auto) Lymph # 0.8 L Baso # Seg Neutrophils % 84.5 H Lymphocytes % (Manual) Monocytes % (Manual) Nucleated RBC % Seg Neutrophils # 8.2 H Seg Neutrophils # Man Monocytes # (Manual) PT INR Activated Clotting Time POC ABG pH POC ABG pCO2 POC ABG pO2 Sodium Potassium Chloride Carbon Dioxide BUN Creatinine Glucose POC Glucose 134 H 134 H Calcium Magnesium Direct Bilirubin AST ALT Alkaline Phosphatase Total Creatine Kinase CK-MB (CK-2) CK-MB (CK-2) Rel Index Troponin T C-Reactive Protein Total Protein Albumin Triglycerides Ur Specific [place] Urine WBC (Auto) Miscellaneous Test 04/23/17 04/24/17 04/24/17 17:26 00:53 06:46 WBC RBC Hgb Hct MCV MCH RDW Plt Count Lymph % (Auto) [place] % (Auto) Eos % (Auto) Baso % (Auto) Lymph # Baso # Seg Neutrophils % Lymphocytes % (Manual) Monocytes % (Manual) Nucleated RBC % Seg Neutrophils # Seg Neutrophils # Man Monocytes # (Manual) PT INR Activated Clotting Time POC ABG pH POC ABG pCO2 POC ABG pO2 Sodium Potassium Chloride Carbon Dioxide BUN Creatinine Glucose POC Glucose 164 H 146 H 125 H Calcium Magnesium Direct Bilirubin AST ALT Alkaline Phosphatase Total Creatine Kinase CK-MB (CK-2) CK-MB (CK-2) Rel Index Troponin T C-Reactive Protein Total Protein Albumin Triglycerides Ur Specific [place] Urine WBC (Auto) Miscellaneous Test 04/24/17 04/24/17 04/24/17 11:55 17:50 23:36 WBC RBC Hgb Hct MCV MCH RDW Plt Count Lymph % (Auto) [place] % (Auto) Eos % (Auto) Baso % (Auto) Lymph # Baso # Seg Neutrophils % Lymphocytes % (Manual) Monocytes % (Manual) Nucleated RBC % Seg Neutrophils # Seg Neutrophils # Man Monocytes # (Manual) PT INR Activated Clotting Time POC ABG pH POC ABG pCO2 POC ABG pO2 Sodium Potassium Chloride Carbon Dioxide BUN Creatinine Glucose POC Glucose 156 H 146 H 131 H Calcium Magnesium Direct Bilirubin AST ALT Alkaline Phosphatase Total Creatine Kinase CK-MB (CK-2) CK-MB (CK-2) Rel Index Troponin T C-Reactive Protein Total Protein Albumin Triglycerides Ur Specific [place] Urine WBC (Auto) Miscellaneous Test 04/25/17 04/25/17 04/25/17 04:51 05:16 07:07 WBC RBC Hgb Hct MCV MCH RDW Plt Count Lymph % (Auto) [place] % (Auto) Eos % (Auto) Baso % (Auto) Lymph # Baso # Seg Neutrophils % Lymphocytes % (Manual) Monocytes % (Manual) Nucleated RBC % Seg Neutrophils # Seg Neutrophils # Man Monocytes # (Manual) PT INR Activated Clotting Time POC ABG pH POC ABG pCO2 POC ABG pO2 Sodium Potassium Chloride Carbon Dioxide BUN Creatinine Glucose POC Glucose 139 H Calcium Magnesium Direct Bilirubin AST 105 H ALT 204 H Alkaline Phosphatase 189 H Total Creatine Kinase CK-MB (CK-2) CK-MB (CK-2) Rel Index Troponin T C-Reactive Protein Total Protein Albumin 2.4 L Triglycerides Ur Specific [place] Urine WBC (Auto) Miscellaneous Test Flexitest 1 H 04/25/17 04/25/17 04/25/17 12:29 17:23 23:32 WBC RBC Hgb Hct MCV MCH RDW Plt Count Lymph % (Auto) [place] % (Auto) Eos % (Auto) Baso % (Auto) Lymph # Baso # Seg Neutrophils % Lymphocytes % (Manual) Monocytes % (Manual) Nucleated RBC % Seg Neutrophils # Seg Neutrophils # Man Monocytes # (Manual) PT INR Activated Clotting Time POC ABG pH POC ABG pCO2 POC ABG pO2 Sodium Potassium Chloride Carbon Dioxide BUN Creatinine Glucose POC Glucose 132 H 133 H 128 H Calcium Magnesium Direct Bilirubin AST ALT Alkaline Phosphatase Total Creatine Kinase CK-MB (CK-2) CK-MB (CK-2) Rel Index Troponin T C-Reactive Protein Total Protein Albumin Triglycerides Ur Specific [place] Urine WBC (Auto) Miscellaneous Test 04/26/17 04/26/17 04/26/17 05:24 11:28 17:09 WBC RBC Hgb Hct MCV MCH RDW Plt Count Lymph % (Auto) [place] % (Auto) Eos % (Auto) Baso % (Auto) Lymph # Baso # Seg Neutrophils % Lymphocytes % (Manual) Monocytes % (Manual) Nucleated RBC % Seg Neutrophils # Seg Neutrophils # Man Monocytes # (Manual) PT INR Activated Clotting Time POC ABG pH POC ABG pCO2 POC ABG pO2 Sodium Potassium Chloride Carbon Dioxide BUN Creatinine Glucose POC Glucose 132 H 146 H 141 H Calcium Magnesium Direct Bilirubin AST ALT Alkaline Phosphatase Total Creatine Kinase CK-MB (CK-2) CK-MB (CK-2) Rel Index Troponin T C-Reactive Protein Total Protein Albumin Triglycerides Ur Specific [place] Urine WBC (Auto) Miscellaneous Test 04/26/17 04/27/17 04/27/17 23:52 05:40 05:40 WBC RBC 3.22 L Hgb 10.0 L Hct 29.9 L MCV MCH RDW Plt Count Lymph % (Auto) [place] % (Auto) Eos % (Auto) Baso % (Auto) Lymph # Baso # Seg Neutrophils % 76.6 H Lymphocytes % (Manual) Monocytes % (Manual) Nucleated RBC % Seg Neutrophils # Seg Neutrophils # Man Monocytes # (Manual) PT INR Activated Clotting Time POC ABG pH POC ABG pCO2 POC ABG pO2 Sodium Potassium Chloride Carbon Dioxide BUN Creatinine Glucose POC Glucose 140 H Calcium Magnesium Direct Bilirubin AST 66 H ALT 137 H Alkaline Phosphatase 169 H Total Creatine Kinase CK-MB (CK-2) CK-MB (CK-2) Rel Index Troponin T C-Reactive Protein Total Protein 6.2 L Albumin 2.6 L Triglycerides Ur Specific [place] Urine WBC (Auto) Miscellaneous Test 04/27/17 04/27/17 04/27/17 05:40 06:10 11:13 WBC RBC Hgb Hct MCV MCH RDW Plt Count Lymph % (Auto) [place] % (Auto) Eos % (Auto) Baso % (Auto) Lymph # Baso # Seg Neutrophils % Lymphocytes % (Manual) Monocytes % (Manual) Nucleated RBC % Seg Neutrophils # Seg Neutrophils # Man Monocytes # (Manual) PT INR Activated Clotting Time POC ABG pH POC ABG pCO2 POC ABG pO2 Sodium Potassium Chloride Carbon Dioxide BUN Creatinine 0.2 L Glucose 139 H POC Glucose 130 H 151 H Calcium Magnesium Direct Bilirubin AST ALT Alkaline Phosphatase Total Creatine Kinase CK-MB (CK-2) CK-MB (CK-2) Rel Index Troponin T C-Reactive Protein Total Protein Albumin Triglycerides Ur Specific [place] Urine WBC (Auto) Miscellaneous Test 04/27/17 04/27/17 04/28/17 17:37 23:19 05:24 WBC RBC Hgb Hct MCV MCH RDW Plt Count Lymph % (Auto) [place] % (Auto) Eos % (Auto) Baso % (Auto) Lymph # Baso # Seg Neutrophils % Lymphocytes % (Manual) Monocytes % (Manual) Nucleated RBC % Seg Neutrophils # Seg Neutrophils # Man Monocytes # (Manual) PT INR Activated Clotting Time POC ABG pH POC ABG pCO2 POC ABG pO2 Sodium Potassium Chloride Carbon Dioxide BUN Creatinine Glucose POC Glucose 159 H 130 H 132 H Calcium Magnesium Direct Bilirubin AST ALT Alkaline Phosphatase Total Creatine Kinase CK-MB (CK-2) CK-MB (CK-2) Rel Index Troponin T C-Reactive Protein Total Protein Albumin Triglycerides Ur Specific [place] Urine WBC (Auto) Miscellaneous Test 04/28/17 04/28/17 04/28/17 11:15 17:38 23:23 WBC RBC Hgb Hct MCV MCH RDW Plt Count Lymph % (Auto) [place] % (Auto) Eos % (Auto) Baso % (Auto) Lymph # Baso # Seg Neutrophils % Lymphocytes % (Manual) Monocytes % (Manual) Nucleated RBC % Seg Neutrophils # Seg Neutrophils # Man Monocytes # (Manual) PT INR Activated Clotting Time POC ABG pH POC ABG pCO2 POC ABG pO2 Sodium Potassium Chloride Carbon Dioxide BUN Creatinine Glucose POC Glucose 162 H 133 H 138 H Calcium Magnesium Direct Bilirubin AST ALT Alkaline Phosphatase Total Creatine Kinase CK-MB (CK-2) CK-MB (CK-2) Rel Index Troponin T C-Reactive Protein Total Protein Albumin Triglycerides Ur Specific [place] Urine WBC (Auto) Miscellaneous Test 04/29/17 04/29/17 04/29/17 05:15 12:55 17:21 WBC RBC Hgb Hct MCV MCH RDW Plt Count Lymph % (Auto) [place] % (Auto) Eos % (Auto) Baso % (Auto) Lymph # Baso # Seg Neutrophils % Lymphocytes % (Manual) Monocytes % (Manual) Nucleated RBC % Seg Neutrophils # Seg Neutrophils # Man Monocytes # (Manual) PT INR Activated Clotting Time POC ABG pH POC ABG pCO2 POC ABG pO2 Sodium Potassium Chloride Carbon Dioxide BUN Creatinine Glucose POC Glucose 135 H 127 H 138 H Calcium Magnesium Direct Bilirubin AST ALT Alkaline Phosphatase Total Creatine Kinase CK-MB (CK-2) CK-MB (CK-2) Rel Index Troponin T C-Reactive Protein Total Protein Albumin Triglycerides Ur Specific [place] Urine WBC (Auto) Miscellaneous Test 04/29/17 04/30/17 04/30/17 23:52 04:55 12:22 WBC RBC Hgb Hct MCV MCH RDW Plt Count Lymph % (Auto) [place] % (Auto) Eos % (Auto) Baso % (Auto) Lymph # Baso # Seg Neutrophils % Lymphocytes % (Manual) Monocytes % (Manual) Nucleated RBC % Seg Neutrophils # Seg Neutrophils # Man Monocytes # (Manual) PT INR Activated Clotting Time POC ABG pH POC ABG pCO2 POC ABG pO2 Sodium Potassium Chloride Carbon Dioxide BUN Creatinine Glucose POC Glucose 142 H 146 H 132 H Calcium Magnesium Direct Bilirubin AST ALT Alkaline Phosphatase Total Creatine Kinase CK-MB (CK-2) CK-MB (CK-2) Rel Index Troponin T C-Reactive Protein Total Protein Albumin Triglycerides Ur Specific [place] Urine WBC (Auto) Miscellaneous Test 04/30/17 04/30/17 04/30/17 14:25 17:47 18:20 WBC RBC Hgb Hct MCV MCH RDW Plt Count Lymph % (Auto) [place] % (Auto) Eos % (Auto) Baso % (Auto) Lymph # Baso # Seg Neutrophils % Lymphocytes % (Manual) Monocytes % (Manual) Nucleated RBC % Seg Neutrophils # Seg Neutrophils # Man Monocytes # (Manual) PT INR Activated Clotting Time POC ABG pH 7.551 H POC ABG pCO2 32.7 L POC ABG pO2 Sodium Potassium Chloride Carbon Dioxide BUN 21 H Creatinine 0.2 L Glucose 141 H POC Glucose 139 H Calcium Magnesium Direct Bilirubin AST ALT Alkaline Phosphatase Total Creatine Kinase CK-MB (CK-2) CK-MB (CK-2) Rel Index Troponin T C-Reactive Protein Total Protein Albumin Triglycerides Ur Specific [place] Urine WBC (Auto) Miscellaneous Test 05/01/17 05/01/17 05/01/17 01:26 05:30 05:30 WBC RBC 3.49 L Hgb 10.3 L Hct 31.9 L MCV MCH RDW Plt Count Lymph % (Auto) [place] % (Auto) 8.1 H Eos % (Auto) Baso % (Auto) Lymph # Baso # Seg Neutrophils % 71.3 H Lymphocytes % (Manual) Monocytes % (Manual) Nucleated RBC % Seg Neutrophils # Seg Neutrophils # Man Monocytes # (Manual) PT INR Activated Clotting Time POC ABG pH POC ABG pCO2 POC ABG pO2 Sodium 136 L Potassium Chloride 97.6 L Carbon Dioxide BUN Creatinine 0.2 L Glucose 123 H POC Glucose 116 H Calcium Magnesium Direct Bilirubin AST 71 H ALT 125 H Alkaline Phosphatase 158 H Total Creatine Kinase CK-MB (CK-2) CK-MB (CK-2) Rel Index Troponin T C-Reactive Protein Total Protein Albumin 2.6 L Triglycerides Ur Specific [place] Urine WBC (Auto) Miscellaneous Test 05/01/17 05/01/17 05/02/17 11:59 17:23 00:08 WBC RBC Hgb Hct MCV MCH RDW Plt Count Lymph % (Auto) [place] % (Auto) Eos % (Auto) Baso % (Auto) Lymph # Baso # Seg Neutrophils % Lymphocytes % (Manual) Monocytes % (Manual) Nucleated RBC % Seg Neutrophils # Seg Neutrophils # Man Monocytes # (Manual) PT INR Activated Clotting Time POC ABG pH POC ABG pCO2 POC ABG pO2 Sodium Potassium Chloride Carbon Dioxide BUN Creatinine Glucose POC Glucose 118 H 144 H 122 H Calcium Magnesium Direct Bilirubin AST ALT Alkaline Phosphatase Total Creatine Kinase CK-MB (CK-2) CK-MB (CK-2) Rel Index Troponin T C-Reactive Protein Total Protein Albumin Triglycerides Ur Specific [place] Urine WBC (Auto) Miscellaneous Test 05/02/17 05/02/17 05/02/17 05:50 11:21 17:48 WBC RBC Hgb Hct MCV MCH RDW Plt Count Lymph % (Auto) [place] % (Auto) Eos % (Auto) Baso % (Auto) Lymph # Baso # Seg Neutrophils % Lymphocytes % (Manual) Monocytes % (Manual) Nucleated RBC % Seg Neutrophils # Seg Neutrophils # Man Monocytes # (Manual) PT INR Activated Clotting Time POC ABG pH POC ABG pCO2 POC ABG pO2 Sodium Potassium Chloride Carbon Dioxide BUN Creatinine Glucose POC Glucose 120 H 121 H 140 H Calcium Magnesium Direct Bilirubin AST ALT Alkaline Phosphatase Total Creatine Kinase CK-MB (CK-2) CK-MB (CK-2) Rel Index Troponin T C-Reactive Protein Total Protein Albumin Triglycerides Ur Specific [place] Urine WBC (Auto) Miscellaneous Test 05/02/17 05/03/17 05/03/17 23:12 05:35 11:52 WBC RBC Hgb Hct MCV MCH RDW Plt Count Lymph % (Auto) [place] % (Auto) Eos % (Auto) Baso % (Auto) Lymph # Baso # Seg Neutrophils % Lymphocytes % (Manual) Monocytes % (Manual) Nucleated RBC % Seg Neutrophils # Seg Neutrophils # Man Monocytes # (Manual) PT INR Activated Clotting Time POC ABG pH POC ABG pCO2 POC ABG pO2 Sodium Potassium Chloride Carbon Dioxide BUN Creatinine Glucose POC Glucose 128 H 113 H 126 H Calcium Magnesium Direct Bilirubin AST ALT Alkaline Phosphatase Total Creatine Kinase CK-MB (CK-2) CK-MB (CK-2) Rel Index Troponin T C-Reactive Protein Total Protein Albumin Triglycerides Ur Specific [place] Urine WBC (Auto) Miscellaneous Test 05/03/17 05/03/17 05/04/17 17:29 23:26 04:55 WBC RBC Hgb Hct MCV MCH RDW Plt Count Lymph % (Auto) [place] % (Auto) Eos % (Auto) Baso % (Auto) Lymph # Baso # Seg Neutrophils % Lymphocytes % (Manual) Monocytes % (Manual) Nucleated RBC % Seg Neutrophils # Seg Neutrophils # Man Monocytes # (Manual) PT INR Activated Clotting Time POC ABG pH POC ABG pCO2 POC ABG pO2 Sodium Potassium Chloride Carbon Dioxide BUN Creatinine Glucose POC Glucose 141 H 129 H 126 H Calcium Magnesium Direct Bilirubin AST ALT Alkaline Phosphatase Total Creatine Kinase CK-MB (CK-2) CK-MB (CK-2) Rel Index Troponin T C-Reactive Protein Total Protein Albumin Triglycerides Ur Specific [place] Urine WBC (Auto) Miscellaneous Test 05/04/17 05/04/17 05/05/17 12:09 17:46 00:06 WBC RBC Hgb Hct MCV MCH RDW Plt Count Lymph % (Auto) [place] % (Auto) Eos % (Auto) Baso % (Auto) Lymph # Baso # Seg Neutrophils % Lymphocytes % (Manual) Monocytes % (Manual) Nucleated RBC % Seg Neutrophils # Seg Neutrophils # Man Monocytes # (Manual) PT INR Activated Clotting Time POC ABG pH POC ABG pCO2 POC ABG pO2 Sodium Potassium Chloride Carbon Dioxide BUN Creatinine Glucose POC Glucose 125 H 125 H 110 H Calcium Magnesium Direct Bilirubin AST ALT Alkaline Phosphatase Total Creatine Kinase CK-MB (CK-2) CK-MB (CK-2) Rel Index Troponin T C-Reactive Protein Total Protein Albumin Triglycerides Ur Specific [place] Urine WBC (Auto) Miscellaneous Test 05/05/17 05/05/1705/05/18 05:48 11:41 16:19 WBC RBC Hgb Hct MCV MCH RDW Plt Count Lymph % (Auto) [place] % (Auto) Eos % (Auto) Baso % (Auto) Lymph # Baso # Seg Neutrophils % Lymphocytes % (Manual) Monocytes % (Manual) Nucleated RBC % Seg Neutrophils # Seg Neutrophils # Man Monocytes # (Manual) PT INR Activated Clotting Time POC ABG pH POC ABG pCO2 POC ABG pO2 Sodium Potassium Chloride Carbon Dioxide BUN Creatinine Glucose POC Glucose 124 H 122 H 120 H Calcium Magnesium Direct Bilirubin AST ALT Alkaline Phosphatase Total Creatine Kinase CK-MB (CK-2) CK-MB (CK-2) Rel Index Troponin T C-Reactive Protein Total Protein Albumin Triglycerides Ur Specific [place] Urine WBC (Auto) Miscellaneous Test 05/06/17 05/06/17 05/06/17 00:16 05:47 11:42 WBC RBC Hgb Hct MCV MCH RDW Plt Count Lymph % (Auto) [place] % (Auto) Eos % (Auto) Baso % (Auto) Lymph # Baso # Seg Neutrophils % Lymphocytes % (Manual) Monocytes % (Manual) Nucleated RBC % Seg Neutrophils # Seg Neutrophils # Man Monocytes # (Manual) PT INR Activated Clotting Time POC ABG pH POC ABG pCO2 POC ABG pO2 Sodium Potassium Chloride Carbon Dioxide BUN Creatinine Glucose POC Glucose 110 H 142 H 120 H Calcium Magnesium Direct Bilirubin AST ALT Alkaline Phosphatase Total Creatine Kinase CK-MB (CK-2) CK-MB (CK-2) Rel Index Troponin T C-Reactive Protein Total Protein Albumin Triglycerides Ur Specific [place] Urine WBC (Auto) Miscellaneous Test 05/06/17 05/07/17 05/07/17 17:46 00:07 05:28 WBC RBC Hgb Hct MCV MCH RDW Plt Count Lymph % (Auto) [place] % (Auto) Eos % (Auto) Baso % (Auto) Lymph # Baso # Seg Neutrophils % Lymphocytes % (Manual) Monocytes % (Manual) Nucleated RBC % Seg Neutrophils # Seg Neutrophils # Man Monocytes # (Manual) PT INR Activated Clotting Time POC ABG pH POC ABG pCO2 POC ABG pO2 Sodium Potassium Chloride Carbon Dioxide BUN Creatinine Glucose POC Glucose 127 H 145 H 124 H Calcium Magnesium Direct Bilirubin AST ALT Alkaline Phosphatase Total Creatine Kinase CK-MB (CK-2) CK-MB (CK-2) Rel Index Troponin T C-Reactive Protein Total Protein Albumin Triglycerides Ur Specific [place] Urine WBC (Auto) Miscellaneous Test 05/07/17 05/07/17 05/08/17 11:17 17:14 00:03 WBC RBC Hgb Hct MCV MCH RDW Plt Count Lymph % (Auto) [place] % (Auto) Eos % (Auto) Baso % (Auto) Lymph # Baso # Seg Neutrophils % Lymphocytes % (Manual) Monocytes % (Manual) Nucleated RBC % Seg Neutrophils # Seg Neutrophils # Man Monocytes # (Manual) PT INR Activated Clotting Time POC ABG pH POC ABG pCO2 POC ABG pO2 Sodium Potassium Chloride Carbon Dioxide BUN Creatinine Glucose POC Glucose 144 H 125 H 122 H Calcium Magnesium Direct Bilirubin AST ALT Alkaline Phosphatase Total Creatine Kinase CK-MB (CK-2) CK-MB (CK-2) Rel Index Troponin T C-Reactive Protein Total Protein Albumin Triglycerides Ur Specific [place] Urine WBC (Auto) Miscellaneous Test 05/08/17 05/08/17 05/08/17 05:43 12:07 18:02 WBC RBC Hgb Hct MCV MCH RDW Plt Count Lymph % (Auto) [place] % (Auto) Eos % (Auto) Baso % (Auto) Lymph # Baso # Seg Neutrophils % Lymphocytes % (Manual) Monocytes % (Manual) Nucleated RBC % Seg Neutrophils # Seg Neutrophils # Man Monocytes # (Manual) PT INR Activated Clotting Time POC ABG pH POC ABG pCO2 POC ABG pO2 Sodium Potassium Chloride Carbon Dioxide BUN Creatinine Glucose POC Glucose 117 H 114 H 129 H Calcium Magnesium Direct Bilirubin AST ALT Alkaline Phosphatase Total Creatine Kinase CK-MB (CK-2) CK-MB (CK-2) Rel Index Troponin T C-Reactive Protein Total Protein Albumin Triglycerides Ur Specific [place] Urine WBC (Auto) Miscellaneous Test 05/08/17 05/09/17 05/09/17 23:53 04:19 05:14 WBC RBC Hgb Hct MCV MCH RDW Plt Count Lymph % (Auto) [place] % (Auto) Eos % (Auto) Baso % (Auto) Lymph # Baso # Seg Neutrophils % Lymphocytes % (Manual) Monocytes % (Manual) Nucleated RBC % Seg Neutrophils # Seg Neutrophils # Man Monocytes # (Manual) PT INR Activated Clotting Time POC ABG pH 7.524 H POC ABG pCO2 34.7 L POC ABG pO2 107 H Sodium Potassium Chloride Carbon Dioxide BUN Creatinine Glucose POC Glucose 125 H 118 H Calcium Magnesium Direct Bilirubin AST ALT Alkaline Phosphatase Total Creatine Kinase CK-MB (CK-2) CK-MB (CK-2) Rel Index Troponin T C-Reactive Protein Total Protein Albumin Triglycerides Ur Specific [place] Urine WBC (Auto) Miscellaneous Test 05/10/17 05/11/17 05/11/17 23:54 05:48 23:50 WBC RBC Hgb Hct MCV MCH RDW Plt Count Lymph % (Auto) [place] % (Auto) Eos % (Auto) Baso % (Auto) Lymph # Baso # Seg Neutrophils % Lymphocytes % (Manual) Monocytes % (Manual) Nucleated RBC % Seg Neutrophils # Seg Neutrophils # Man Monocytes # (Manual) PT INR Activated Clotting Time POC ABG pH POC ABG pCO2 POC ABG pO2 Sodium Potassium Chloride Carbon Dioxide BUN Creatinine Glucose POC Glucose 126 H 137 H 130 H Calcium Magnesium Direct Bilirubin AST ALT Alkaline Phosphatase Total Creatine Kinase CK-MB (CK-2) CK-MB (CK-2) Rel Index Troponin T C-Reactive Protein Total Protein Albumin Triglycerides Ur Specific [place] Urine WBC (Auto) Miscellaneous Test 05/12/17 05/12/17 05/12/17 05:48 11:33 18:00 WBC RBC Hgb Hct MCV MCH RDW Plt Count Lymph % (Auto) [place] % (Auto) Eos % (Auto) Baso % (Auto) Lymph # Baso # Seg Neutrophils % Lymphocytes % (Manual) Monocytes % (Manual) Nucleated RBC % Seg Neutrophils # Seg Neutrophils # Man Monocytes # (Manual) PT INR Activated Clotting Time POC ABG pH POC ABG pCO2 POC ABG pO2 Sodium Potassium Chloride Carbon Dioxide BUN Creatinine Glucose POC Glucose 126 H 116 H 131 H Calcium Magnesium Direct Bilirubin AST ALT Alkaline Phosphatase Total Creatine Kinase CK-MB (CK-2) CK-MB (CK-2) Rel Index Troponin T C-Reactive Protein Total Protein Albumin Triglycerides Ur Specific [place] Urine WBC (Auto) Miscellaneous Test 05/14/17 05/15/17 05/15/17 11:45 11:27 17:42 WBC RBC Hgb Hct MCV MCH RDW Plt Count Lymph % (Auto) [place] % (Auto) Eos % (Auto) Baso % (Auto) Lymph # Baso # Seg Neutrophils % Lymphocytes % (Manual) Monocytes % (Manual) Nucleated RBC % Seg Neutrophils # Seg Neutrophils # Man Monocytes # (Manual) PT INR Activated Clotting Time POC ABG pH POC ABG pCO2 POC ABG pO2 Sodium Potassium Chloride Carbon Dioxide BUN Creatinine Glucose POC Glucose 123 H 129 H 125 H Calcium Magnesium Direct Bilirubin AST ALT Alkaline Phosphatase Total Creatine Kinase CK-MB (CK-2) CK-MB (CK-2) Rel Index Troponin T C-Reactive Protein Total Protein Albumin Triglycerides Ur Specific [place] Urine WBC (Auto) Miscellaneous Test 05/16/17 05/16/17 05/17/17 00:29 06:50 03:45 WBC RBC Hgb 11.7 L Hct 34.8 L MCV MCH RDW 15.5 H Plt Count Lymph % (Auto) [place] % (Auto) 7.7 H Eos % (Auto) Baso % (Auto) Lymph # Baso # Seg Neutrophils % 73.7 H Lymphocytes % (Manual) Monocytes % (Manual) Nucleated RBC % Seg Neutrophils # Seg Neutrophils # Man Monocytes # (Manual) PT INR Activated Clotting Time POC ABG pH POC ABG pCO2 POC ABG pO2 Sodium Potassium Chloride Carbon Dioxide BUN Creatinine Glucose POC Glucose 141 H 138 H Calcium Magnesium Direct Bilirubin AST ALT Alkaline Phosphatase Total Creatine Kinase CK-MB (CK-2) CK-MB (CK-2) Rel Index Troponin T C-Reactive Protein Total Protein Albumin Triglycerides Ur Specific [place] Urine WBC (Auto) Miscellaneous Test 05/17/17 05/20/17 05/23/17 03:45 17:31 23:09 WBC RBC Hgb Hct MCV MCH RDW Plt Count Lymph % (Auto) [place] % (Auto) Eos % (Auto) Baso % (Auto) Lymph # Baso # Seg Neutrophils % Lymphocytes % (Manual) Monocytes % (Manual) Nucleated RBC % Seg Neutrophils # Seg Neutrophils # Man Monocytes # (Manual) PT INR Activated Clotting Time POC ABG pH POC ABG pCO2 POC ABG pO2 Sodium Potassium Chloride Carbon Dioxide BUN Creatinine 0.2 L Glucose 131 H POC Glucose 116 H 122 H Calcium Magnesium Direct Bilirubin AST ALT Alkaline Phosphatase Total Creatine Kinase CK-MB (CK-2) CK-MB (CK-2) Rel Index Troponin T C-Reactive Protein Total Protein Albumin Triglycerides Ur Specific [place] Urine WBC (Auto) Miscellaneous Test 05/24/17 05/26/17 05/27/17 05:37 05:23 01:16 WBC RBC Hgb Hct MCV MCH RDW Plt Count Lymph % (Auto) [place] % (Auto) Eos % (Auto) Baso % (Auto) Lymph # Baso # Seg Neutrophils % Lymphocytes % (Manual) Monocytes % (Manual) Nucleated RBC % Seg Neutrophils # Seg Neutrophils # Man Monocytes # (Manual) PT INR Activated Clotting Time POC ABG pH POC ABG pCO2 POC ABG pO2 Sodium Potassium Chloride Carbon Dioxide BUN Creatinine Glucose POC Glucose 139 H 108 H 126 H Calcium Magnesium Direct Bilirubin AST ALT Alkaline Phosphatase Total Creatine Kinase CK-MB (CK-2) CK-MB (CK-2) Rel Index Troponin T C-Reactive Protein Total Protein Albumin Triglycerides Ur Specific [place] Urine WBC (Auto) Miscellaneous Test 05/27/17 05/27/17 05/29/17 05:33 21:49 04:37 WBC RBC Hgb Hct MCV MCH RDW 15.5 H Plt Count Lymph % (Auto) [place] % (Auto) Eos % (Auto) Baso % (Auto) Lymph # Baso # Seg Neutrophils % Lymphocytes % (Manual) Monocytes % (Manual) Nucleated RBC % Seg Neutrophils # Seg Neutrophils # Man Monocytes # (Manual) PT INR Activated Clotting Time POC ABG pH POC ABG pCO2 POC ABG pO2 Sodium Potassium Chloride Carbon Dioxide BUN Creatinine Glucose POC Glucose 129 H 110 H Calcium Magnesium Direct Bilirubin AST ALT Alkaline Phosphatase Total Creatine Kinase CK-MB (CK-2) CK-MB (CK-2) Rel Index Troponin T C-Reactive Protein Total Protein Albumin Triglycerides Ur Specific [place] Urine WBC (Auto) Miscellaneous Test 05/29/17 06/01/17 06/08/17 04:37 05:28 22:45 WBC RBC Hgb Hct MCV MCH RDW Plt Count Lymph % (Auto) [place] % (Auto) Eos % (Auto) Baso % (Auto) Lymph # Baso # Seg Neutrophils % Lymphocytes % (Manual) Monocytes % (Manual) Nucleated RBC % Seg Neutrophils # Seg Neutrophils # Man Monocytes # (Manual) PT INR Activated Clotting Time POC ABG pH POC ABG pCO2 POC ABG pO2 Sodium Potassium Chloride 97.6 L Carbon Dioxide BUN Creatinine 0.2 L Glucose 121 H POC Glucose 133 H 110 H Calcium Magnesium Direct Bilirubin AST ALT Alkaline Phosphatase Total Creatine Kinase CK-MB (CK-2) CK-MB (CK-2) Rel Index Troponin T C-Reactive Protein Total Protein Albumin Triglycerides Ur Specific [place] Urine WBC (Auto) Miscellaneous Test 06/09/17 06/09/17 06/09/17 14:50 18:29 22:12 WBC RBC Hgb Hct MCV MCH RDW Plt Count Lymph % (Auto) [place] % (Auto) Eos % (Auto) Baso % (Auto) Lymph # Baso # Seg Neutrophils % Lymphocytes % (Manual) Monocytes % (Manual) Nucleated RBC % Seg Neutrophils # Seg Neutrophils # Man Monocytes # (Manual) PT INR Activated Clotting Time POC ABG pH 7.496 H POC ABG pCO2 33.7 L POC ABG pO2 Sodium Potassium Chloride Carbon Dioxide BUN Creatinine Glucose POC Glucose 121 H 109 H Calcium Magnesium Direct Bilirubin AST ALT Alkaline Phosphatase Total Creatine Kinase CK-MB (CK-2) CK-MB (CK-2) Rel Index Troponin T C-Reactive Protein Total Protein Albumin Triglycerides Ur Specific [place] Urine WBC (Auto) Miscellaneous Test 06/10/17 06/10/17 06/10/17 05:05 13:00 18:11 WBC RBC Hgb Hct MCV MCH RDW Plt Count Lymph % (Auto) [place] % (Auto) Eos % (Auto) Baso % (Auto) Lymph # Baso # Seg Neutrophils % Lymphocytes % (Manual) Monocytes % (Manual) Nucleated RBC % Seg Neutrophils # Seg Neutrophils # Man Monocytes # (Manual) PT INR Activated Clotting Time POC ABG pH POC ABG pCO2 POC ABG pO2 Sodium Potassium Chloride Carbon Dioxide BUN Creatinine Glucose POC Glucose 123 H 130 H 117 H Calcium Magnesium Direct Bilirubin AST ALT Alkaline Phosphatase Total Creatine Kinase CK-MB (CK-2) CK-MB (CK-2) Rel Index Troponin T C-Reactive Protein Total Protein Albumin Triglycerides Ur Specific [place] Urine WBC (Auto) Miscellaneous Test 06/10/17 06/11/17 06/12/17 21:22 16:02 05:10 WBC RBC Hgb Hct MCV MCH RDW 15.5 H Plt Count Lymph % (Auto) [place] % (Auto) 8.2 H Eos % (Auto) Baso % (Auto) Lymph # Baso # Seg Neutrophils % Lymphocytes % (Manual) Monocytes % (Manual) Nucleated RBC % Seg Neutrophils # Seg Neutrophils # Man Monocytes # (Manual) PT INR Activated Clotting Time POC ABG pH POC ABG pCO2 POC ABG pO2 Sodium Potassium Chloride Carbon Dioxide BUN Creatinine Glucose POC Glucose 113 H 125 H Calcium Magnesium Direct Bilirubin AST ALT Alkaline Phosphatase Total Creatine Kinase CK-MB (CK-2) CK-MB (CK-2) Rel Index Troponin T C-Reactive Protein Total Protein Albumin Triglycerides Ur Specific [place] Urine WBC (Auto) Miscellaneous Test 06/12/17 06/12/17 06/12/17 05:10 11:37 17:25 WBC RBC Hgb Hct MCV MCH RDW Plt Count Lymph % (Auto) [place] % (Auto) Eos % (Auto) Baso % (Auto) Lymph # Baso # Seg Neutrophils % Lymphocytes % (Manual) Monocytes % (Manual) Nucleated RBC % Seg Neutrophils # Seg Neutrophils # Man Monocytes # (Manual) PT INR Activated Clotting Time POC ABG pH POC ABG pCO2 POC ABG pO2 Sodium Potassium Chloride Carbon Dioxide BUN Creatinine 0.3 L Glucose 134 H POC Glucose 142 H 115 H Calcium Magnesium Direct Bilirubin AST ALT Alkaline Phosphatase Total Creatine Kinase CK-MB (CK-2) CK-MB (CK-2) Rel Index Troponin T C-Reactive Protein Total Protein Albumin Triglycerides Ur Specific [place] Urine WBC (Auto) Miscellaneous Test 06/13/17 06/13/17 06/13/17 06:54 11:26 18:39 WBC RBC Hgb Hct MCV MCH RDW Plt Count Lymph % (Auto) [place] % (Auto) Eos % (Auto) Baso % (Auto) Lymph # Baso # Seg Neutrophils % Lymphocytes % (Manual) Monocytes % (Manual) Nucleated RBC % Seg Neutrophils # Seg Neutrophils # Man Monocytes # (Manual) PT INR Activated Clotting Time POC ABG pH POC ABG pCO2 POC ABG pO2 Sodium Potassium Chloride Carbon Dioxide BUN Creatinine Glucose POC Glucose 141 H 112 H 123 H Calcium Magnesium Direct Bilirubin AST ALT Alkaline Phosphatase Total Creatine Kinase CK-MB (CK-2) CK-MB (CK-2) Rel Index Troponin T C-Reactive Protein Total Protein Albumin Triglycerides Ur Specific [place] Urine WBC (Auto) Miscellaneous Test 06/14/17 06/14/17 06/15/17 02:39 06:18 05:59 WBC RBC Hgb Hct MCV MCH RDW Plt Count Lymph % (Auto) [place] % (Auto) Eos % (Auto) Baso % (Auto) Lymph # Baso # Seg Neutrophils % Lymphocytes % (Manual) Monocytes % (Manual) Nucleated RBC % Seg Neutrophils # Seg Neutrophils # Man Monocytes # (Manual) PT INR Activated Clotting Time POC ABG pH POC ABG pCO2 POC ABG pO2 Sodium Potassium Chloride Carbon Dioxide BUN Creatinine Glucose POC Glucose 119 H 112 H 107 H Calcium Magnesium Direct Bilirubin AST ALT Alkaline Phosphatase Total Creatine Kinase CK-MB (CK-2) CK-MB (CK-2) Rel Index Troponin T C-Reactive Protein Total Protein Albumin Triglycerides Ur Specific [place] Urine WBC (Auto) Miscellaneous Test
--- NOTE | 2017-06-15 17:57 | Progress Note ---
Assessment and Plan Assessment and plan: The patient is a 46-year-old male admitted to the hospital status post cardiac arrest. Unfortunately did not recover her mental status has remained persistently resistant state. Has been successfully weaned off the ventilator and currently is on T piece. Anoxic encephalopathy STEMI, status post cardiac cath and stent placement Respiratory failure on trach on 4L of oxygen Aspiration pneumonia treated with Iv antibiotics DVT; on eliquis - No change from baseline - No Family member in the room to discuss a plan of care Disposition - Continue follow up with families if they are able to take him home. PLAN is for discharge in am History Interval history: Patient seen and examined, currently on T piece unresponsive. No family at bedside, discussed with case management Hospitalist Physical - Physical exam Narrative exam: General appearance: Present: no acute distress, well-nourished, other ( tracheostomy on T piece) - EENT Eyes: Present: PERRL (spontaneous opening of eyes) marked temporal wasting - Neck Neck: Present: supple, other (tracheostomy) T piece - Respiratory Respiratory effort: normal Respiratory: bilateral: diminished, rhonchi - Cardiovascular Rhythm: regular Heart Sounds: Present: S1 & S2 - Extremities Extremities: no ischemia Extremity abnormal: edema (trace edema) - Abdominal General gastrointestinal: soft, non-tender, non-distended, normal bowel sounds, other (PEG in place and functional) - Integumentary Integumentary: Present: clear, warm - Psychiatric Psychiatric: other (noncommunicative) - Neurologic Neurologic: other (unresponsive) - Constitutional Vitals: Temp Pulse Resp BP Pulse Ox 98.0 F 72 18 118/72 95 06/15/17 16:36 06/15/17 16:36 06/15/17 16:36 06/15/17 16:36 06/15/17 16:36 General appearance: Present: other (tracheostomy on vent) Results - Labs CBC & Chem 7: 06/12/17 05:10 06/12/17 05:10 Labs: Laboratory Last Values WBC 7.7 K/mm3 (4.5-11.0) 06/12/17 05:10 RBC 4.23 M/mm3 (3.65-5.03) 06/12/17 05:10 Hgb 12.5 gm/dl (11.8-15.2) 06/12/17 05:10 Hct 37.3 % (35.5-45.6) 06/12/17 05:10 MCV 88 fl (84-94) 06/12/17 05:10 MCH 30 pg (28-32) 06/12/17 05:10 MCHC 34 % (32-34) 06/12/17 05:10 RDW 15.5 % (13.2-15.2) H 06/12/17 05:10 Plt Count 227 K/mm3 (140-440) 06/12/17 05:10 Lymph % (Auto) 20.8 % (13.4-35.0) 06/12/17 05:10 [place] % (Auto) 8.2 % (0.0-7.3) H 06/12/17 05:10 Eos % (Auto) 3.3 % (0.0-4.3) 06/12/17 05:10 Baso % (Auto) 0.4 % (0.0-1.8) 06/12/17 05:10 Lymph # 1.6 K/mm3 (1.2-5.4) 06/12/17 05:10 [place] # 0.6 K/mm3 (0.0-0.8) 06/12/17 05:10 Eos # 0.3 K/mm3 (0.0-0.4) 06/12/17 05:10 Baso # 0.0 K/mm3 (0.0-0.1) 06/12/17 05:10 Add Manual Diff Complete 03/30/17 03:50 Total Counted 100 03/30/17 03:50 Seg Neutrophils % 67.3 % (40.0-70.0) 06/12/17 05:10 Seg Neuts % (Manual) 65.0 % (40.0-70.0) 03/30/17 03:50 Band Neutrophils % 17.0 % 03/30/17 03:50 Lymphocytes % (Manual) 7.0 % (13.4-35.0) L 03/30/17 03:50 Reactive Lymphs % (Man) 0 % 03/30/17 03:50 Monocytes % (Manual) 7.0 % (0.0-7.3) 03/30/17 03:50 Eosinophils % (Manual) 0 % (0.0-4.3) 03/30/17 03:50 Basophils % (Manual) 0 % (0.0-1.8) 03/30/17 03:50 Metamyelocytes % 4.0 % 03/30/17 03:50 Myelocytes % 0 % 03/30/17 03:50 Promyelocytes % 0 % 03/30/17 03:50 Blast Cells % 0 % 03/30/17 03:50 Nucleated RBC % Not Reportable 03/30/17 03:50 Seg Neutrophils # 5.1 K/mm3 (1.8-7.7) 06/12/17 05:10 Seg Neutrophils # Man 12.7 K/mm3 (1.8-7.7) H 03/30/17 03:50 Band Neutrophils # 3.3 K/mm3 03/30/17 03:50 Lymphocytes # (Manual) 1.4 K/mm3 (1.2-5.4) 03/30/17 03:50 Abs React Lymphs (Man) 0.0 K/mm3 03/30/17 03:50 Monocytes # (Manual) 1.4 K/mm3 (0.0-0.8) H 03/30/17 03:50 Eosinophils # (Manual) 0.0 K/mm3 (0.0-0.4) 03/30/17 03:50 Basophils # (Manual) 0.0 K/mm3 (0.0-0.1) 03/30/17 03:50 Metamyelocytes # 0.8 K/mm3 03/30/17 03:50 Myelocytes # 0.0 K/mm3 03/30/17 03:50 Promyelocytes # 0.0 K/mm3 03/30/17 03:50 Blast Cells # 0.0 K/mm3 03/30/17 03:50 WBC Morphology Not Reportable 03/30/17 03:50 Hypersegmented Neuts Not Reportable 03/30/17 03:50 Hyposegmented Neuts Not Reportable 03/30/17 03:50 Hypogranular Neuts Not Reportable 03/30/17 03:50 Smudge Cells Not Reportable 03/30/17 03:50 Toxic Granulation Not Reportable 03/30/17 03:50 Toxic Vacuolation Not Reportable 03/30/17 03:50 Dohle Bodies Not Reportable 03/30/17 03:50 Pelger-Huet Anomaly Not Reportable 03/30/17 03:50 Sherry Rods Not Reportable 03/30/17 03:50 Platelet Estimate Appears normal 03/30/17 03:50 Clumped Platelets Not Reportable 03/30/17 03:50 Plt Clumps, EDTA Not Reportable 03/30/17 03:50 Large Platelets Not Reportable 03/30/17 03:50 Giant Platelets Not Reportable 03/30/17 03:50 Platelet Satelliting Not Reportable 03/30/17 03:50 Plt Morphology Comment Not Reportable 03/30/17 03:50 RBC Morphology Not Reportable 03/30/17 03:50 Dimorphic RBCs Not Reportable 03/30/17 03:50 Polychromasia Not Reportable 03/30/17 03:50 Hypochromasia Not Reportable 03/30/17 03:50 Poikilocytosis Not Reportable 03/30/17 03:50 Anisocytosis Few 03/30/17 03:50 Microcytosis Not Reportable 03/30/17 03:50 Macrocytosis Not Reportable 03/30/17 03:50 Spherocytes Not Reportable 03/30/17 03:50 Pappenheimer Bodies Not Reportable 03/30/17 03:50 Sickle Cells Not Reportable 03/30/17 03:50 Target Cells Not Reportable 03/30/17 03:50 Tear Drop Cells Not Reportable 03/30/17 03:50 Ovalocytes Not Reportable 03/30/17 03:50 Helmet Cells Not Reportable 03/30/17 03:50 Tamayo-Colma Bodies Not Reportable 03/30/17 03:50 [place] Rings Not Reportable 03/30/17 03:50 Nusrat Cells Not Reportable 03/30/17 03:50 Bite Cells Not Reportable 03/30/17 03:50 Crenated Cell Not Reportable 03/30/17 03:50 Elliptocytes Not Reportable 03/30/17 03:50 Acanthocytes (Spur) Not Reportable 03/30/17 03:50 Rouleaux Not Reportable 03/30/17 03:50 Hemoglobin C Crystals Not Reportable 03/30/17 03:50 Schistocytes Not Reportable 03/30/17 03:50 Malaria parasites Not Reportable 03/30/17 03:50 Jermaine Bodies Not Reportable 03/30/17 03:50 Hem Pathologist Commnt No 03/30/17 03:50 PT 14.9 Sec. (12.2-14.9) 04/10/17 04:16 INR 1.11 (0.87-1.13) 04/10/17 04:16 APTT 27.8 Sec. (24.2-36.6) 04/10/17 04:16 Activated Clotting Time 92 (74-137) 03/29/17 17:47 POC ABG pH 7.496 (7.35-7.45) H 06/09/17 18:29 POC ABG pCO2 33.7 (35-45) L 06/09/17 18:29 POC ABG pO2 103 (80-105) 06/09/17 18:29 POC ABG HCO3 26.0 06/09/17 18:29 POC ABG Total CO2 27 06/09/17 18:29 POC ABG O2 Sat 98 06/09/17 18:29 POC ABG Base Excess 3 06/09/17 18:29 FiO2 28 % 06/09/17 18:29 Sodium 141 mmol/L (137-145) 06/12/17 05:10 Potassium 3.7 mmol/L (3.6-5.0) 06/12/17 05:10 Chloride 102.5 mmol/L (98-107) 06/12/17 05:10 Carbon Dioxide 25 mmol/L (22-30) 06/12/17 05:10 Anion Gap 17 mmol/L 06/12/17 05:10 BUN 15 mg/dL (9-20) 06/12/17 05:10 Creatinine 0.3 mg/dL (0.8-1.5) L 06/12/17 05:10 Estimated GFR > 60 ml/min 06/12/17 05:10 BUN/Creatinine Ratio 50 % 06/12/17 05:10 Glucose 134 mg/dL (75-100) H 06/12/17 05:10 POC Glucose 107 (70-105) H 06/15/17 05:59 Calcium 9.5 mg/dL (8.4-10.2) 06/12/17 05:10 Phosphorus 3.50 mg/dL (2.5-4.5) 04/13/17 04:45 Magnesium 1.80 mg/dL (1.7-2.3) 05/01/17 05:30 Total Bilirubin 0.60 mg/dL (0.1-1.2) 05/01/17 05:30 Direct Bilirubin < 0.2 mg/dL (0-0.2) 04/27/17 05:40 Indirect Bilirubin 0.3 mg/dL 04/25/17 04:51 AST 71 units/L (5-40) H 05/01/17 05:30 ALT 125 units/L (7-56) H 05/01/17 05:30 Alkaline Phosphatase 158 units/L (35-129) H 05/01/17 05:30 Total Creatine Kinase 1404 units/L (55-170) H 04/12/17 21:36 CK-MB (CK-2) 8.0 ng/mL (0.0-4.0) H 04/12/17 21:36 CK-MB (CK-2) Rel Index 0.5 (0-4) 04/12/17 21:36 Troponin T 0.767 ng/mL (0.00-0.029) H* 04/12/17 21:36 C-Reactive Protein 21.80 mg/dL (0.00-1.30) H 03/30/17 16:04 Total Protein 6.7 g/dL (6.3-8.2) 05/01/17 05:30 Albumin 2.6 g/dL (3.9-5) L 05/01/17 05:30 Albumin/Globulin Ratio 0.6 % 05/01/17 05:30 Triglycerides 151 mg/dL (2-149) H 04/01/17 04:29 Cholesterol 164 mg/dL (50-199) 03/29/17 19:52 LDL Cholesterol Direct 81 mg/dL (50-130) 03/29/17 19:52 HDL Cholesterol 44 mg/dL (40-59) 03/29/17 19:52 Cholesterol/HDL Ratio 3.72 % 03/29/17 19:52 Urine Color [place] (Yellow) 04/21/17 22:00 Urine Turbidity Clear (Clear) 04/21/17 22:00 Urine pH 5.0 (5.0-7.0) 04/21/17 22:00 Ur Specific [place] 1.029 (1.003-1.030) 04/21/17 22:00 Urine Protein 30 mg/dl mg/dL (Negative) 04/21/17 22:00 Urine Glucose (UA) Neg mg/dL (Negative) 04/21/17 22:00 Urine Ketones Neg mg/dL (Negative) 04/21/17 22:00 Urine Blood Mod (Negative) 04/21/17 22:00 Urine Nitrite Neg (Negative) 04/21/17 22:00 Urine Bilirubin Neg (Negative) 04/21/17 22:00 Urine Urobilinogen 4.0 mg/dL (<2.0) 04/21/17 22:00 Ur Leukocyte Esterase Neg (Negative) 04/21/17 22:00 Urine WBC (Auto) 10.0 /HPF (0.0-6.0) H 04/21/17 22:00 Urine RBC (Auto) 44.0 /HPF (0.0-6.0) 04/21/17 22:00 U Epithel Cells (Auto) < 1.0 /HPF (0-13.0) 04/21/17 22:00 Amorphous Crystals 1+ 03/30/17 09:45 Urine Mucus 3+ /HPF 04/21/17 22:00 Urine Opiates Screen Presumptive negative 03/30/17 09:45 Urine Methadone Screen Presumptive negative 03/30/17 09:45 Ur Barbiturates Screen Presumptive negative 03/30/17 09:45 Ur Phencyclidine Scrn Presumptive negative 03/30/17 09:45 Ur Amphetamines Screen Presumptive positive 03/30/17 09:45 U Benzodiazepines Scrn Presumptive positive 03/30/17 09:45 Urine Cocaine Screen Presumptive negative 03/30/17 09:45 U Marijuana (THC) Screen Presumptive negative 03/30/17 09:45 Drugs of Abuse Note Disclamer 03/30/17 09:45 Miscellaneous Test Flexitest 1 H 04/25/17 07:07 Blood Type O POSITIVE 03/29/17 11:35 Antibody Screen Negative 03/29/17 11:35
--- NOTE | 2017-06-16 09:53 | Discharge Summary ---
Providers - Providers Date of Admission: 03/29/17 12:55 Attending physician: RICKY DEAN MD 03/29/17 Consult to Cardiac Rehabilitation [CONS] Routine Reason For Exam: post pci 03/29/17 14:49 Consult to Dietitian/Nutrition [CONS] Routine Physician Instructions: Reason For Exam: Reason for Consult: Evaluate nutritional intake 03/29/17 15:00 Consult to Physician [CONS] Urgent Consulting Provider: JASVIR HAM Reason For Exam: critical care management Place consult to:: Notified:: yes Phone number called:: na Was contact made?: Yes If yes, spoke with:: Time called:: 11:00 03/30/17 09:58 Consult to Physician [CONS] Routine Consulting Provider: CIRILO BENNETT Reason For Exam: Septic shock Place consult to:: Dr. Robles Notified:: yes Time called:: 12:42 03/30/17 17:45 Consult to Physician [CONS] Routine Consulting Provider: JUAN J BRADLEY Reason For Exam: AMS, anoxic brain injury Place consult to:: Dr Bradley Notified:: yes Phone number called:: [phone] Was contact made?: Yes If yes, spoke with:: Tonia Time called:: 19:40 04/04/17 11:19 Consult to Physician [CONS] Urgent Consulting Provider: ROBERT JEWELL Reason For Exam: second opinion Place consult to:: per Lab Coordinator Notified:: yes Was contact made?: Yes 04/05/17 17:30 PICC Line Placement [Consult to PICC Line RN] [CONS] Urgent Reason For Exam: PICC LINE Type Line:: PICC 04/10/17 11:49 Consult to Physician [CONS] Routine Consulting Provider: CARLOS DELACRUZ Reason For Exam: Trach and Peg placement Place consult to:: Carlos John Notified:: yes Phone number called:: dr. ham spoke with dr. john Was contact made?: Yes If yes, spoke with:: Dr. Ham, spoke with Dr. John Time called:: 11:50 Comment:: He will see patient this afternoon, add to list 04/28/17 15:43 Consult to Wound/ET Nurse [CONS] Routine Reason For Exam: wound eval to left ear 05/10/17 04:58 Consult to Wound/ET Nurse [CONS] Routine Reason For Exam: wound eval to trach- bleeding 06/06/17 03:57 Consult to Wound/ET Nurse [CONS] Urgent Reason For Exam: TRACH SITE BLEEDING Primary care physician: [employer] Hospitalization Reason for admission: pea arrest Condition: Stable Hospital course: 46 YO Male with No PMH presents to ED for evaluation. Pt is unresponsive and unable to provide history. Pt history taken from ED staff and EMS. Pt was at work today and suddenly passed out around 1050 hrs-which was witnessed by patients coworkers. EMS notified, and upon arrival the patient was found to have V Fib. Pt treated IAW ACLS protocol. The patient was given 3 defibrillations, 2 rounds of epinephrine, Narcan, and a half amp of sodium bicarbonate. Pt found to be in respiratory distress and was intubated and placed on vent support. Cardiology team notified, and patient was taken urgently to laboratory sample carrier, and admitted to ICU. He went on to have emergency cath for STEMI, 100% occlusion of LAD was found and had successful angioplasty and stents placed. 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 Patient does have a trach and PEG per family request. He was found to have right upper extremity DVT for which PICC line which was the offending agents was removed and the patient was put on anticoagulant. He completed a course of antibiotics for pneumonia due to MRSA. At this time the patient's is awaiting insurance, application was done earlier this year. After which he has medical insurance the goal will be to transfer him to an LTAC or SNIF facility. This was discussed with his family and he stated that the cannot care for him at home . At this time, he is on PSV trials with goal to wean to T piece. Patient due to insurnace delay stayed in the hosptial longer and was weaned down to Tpiece and with a home health company offering free service till family comfortable. Discharge Diagnoses anoxic brain injury/anoxic encephalopathy/Persistent Vegetative State Acute Respiratory failure requiring MV >96 hours Anterior STEMI sp cardiac arrest with V fib Aspiration PNA due to MRSA/Gram positive Sepsis cardiogenic Shock Sepsis/Right lower lobe aspiration pneumonia, most likely due to gram-positive bacteria Hypokalemia Hypernatremia/dehydration/free water deficit RUE DVT, Severe Protein calorie malnutrition: V. fib arrest status post, Acute Cystitis treated with abx Hypertension Disposition: DC/TX-06 HOME UNDER HOME HLTH Time spent for discharge: 35 mins Core Measure Documentation - Palliative Care Palliative Care/ Comfort Measures: Not Applicable - Core Measures Any of the following diagnoses?: none - VTE Discharge Requirements Deep Vein Thrombosis/Pulmonary Embolism Present on Admission: No Exam - Physical Exam Narrative exam: General appearance: Present: no acute distress, well-nourished, other ( tracheostomy on T piece) - EENT Eyes: Present: PERRL (spontaneous opening of eyes) marked temporal wasting - Neck Neck: Present: supple, other (tracheostomy) T piece - Respiratory Respiratory effort: normal Respiratory: bilateral: diminished, rhonchi - Cardiovascular Rhythm: regular Heart Sounds: Present: S1 & S2 - Extremities Extremities: no ischemia Extremity abnormal: edema (trace edema) - Abdominal General gastrointestinal: soft, non-tender, non-distended, normal bowel sounds, other (PEG in place and functional) - Integumentary Integumentary: Present: clear, warm - Psychiatric Psychiatric: other (noncommunicative) - Neurologic Neurologic: other (unresponsive) - Constitutional Vitals: Temp Pulse Resp BP Pulse Ox 98.6 F 73 30 H 104/62 98 06/16/17 08:16 06/16/17 08:16 06/16/17 08:16 06/16/17 08:16 06/16/17 08:16 Plan Activity: advance as tolerated, fall precautions Diet: per dietitian instruction Wound: per wound nurse instructions Special Instructions: record daily weights, record daily BP diary, home health RN, other (home RT) Follow up with: IGGY FREITAS MD [Staff Physician] - 7 Days PRIMARY CARE, [Primary Care Provider] - 7 Days Forms: CardCath PCI D/C Instructions Prescriptions: AtorvaSTATin [Lipitor] 20 mg PO QHS #30 tablet ALBUTEROL NEB's [Proventil 0.083% NEBS] 2.5 mg IH Q3HRT PRN #30 nebu PRN Reason: Shortness Of Breath Amiodarone [Cordarone 200 MG TAB] 200 mg PO BID #60 tablet Apixaban [Eliquis] 5 mg PO Q12HR #60 tablet Aspirin [Aspirin TAB] 325 mg PO QDAY #30 tablet Clopidogrel [Plavix] 75 mg PO QDAY #30 tablet Lisinopril [Zestril TAB] 2.5 mg PO QDAY #30 tablet Metoprolol [Lopressor TAB] 12.5 mg PO BID #60 tablet Pantoprazole Sodium [Protonix GRANULES] 40 mg FEEDTUBE DAILY #30 packet Scopolamine [Transderm-Scop] 1 each TD Q3D #30 patch
[2017-06-16] MEDS: ZESTRIL PO SCH (12:01)
[2017-06-16] MEDS: LOPRESSOR PO SCH (12:01)
[2017-06-16] MEDS: CORDARONE PO SCH (12:23)
[2017-06-16] MEDS: PROTONIX FEEDTUBE SCH (12:24)
[2017-06-16] MEDS: ASPIRIN PO SCH (12:24)
[2017-06-16] MEDS: PLAVIX PO SCH (12:24)
[2017-06-16] MEDS: ELIQUIS PO SCH (12:24)
[2017-06-16 18:06] VITALS: BP 121/71
== END 2017-06-16 19:45 | disposition home health service (06) | DRG 3 ==
LOC: ED 11:32 → CATH 12:02 → CC1 12:55 → 4A 06-11 00:09
PROVIDERS: ADMIT Internal Medicine; ATTEND Internal Medicine
PROC: 02703DZ Dilation of Coronary Artery, One Artery with Intraluminal Device, Percutaneous Approach (ICD-10-PCS; principal; 2017-03-29)
PROC: 4A023N7 Measurement of Cardiac Sampling and Pressure, Left Heart, Percutaneous Approach (ICD-10-PCS; 2017-03-29)
PROC: B2111ZZ Fluoroscopy of Multiple Coronary Arteries using Low Osmolar Contrast (ICD-10-PCS; 2017-03-29)
PROC: B2151ZZ Fluoroscopy of Left Heart using Low Osmolar Contrast (ICD-10-PCS; 2017-03-29)
PROC: 4A033R1 Measurement of Arterial Saturation, Peripheral, Percutaneous Approach (ICD-10-PCS; 2017-04-02)
PROC: 02HV33Z Insertion of Infusion Device into Superior Vena Cava, Percutaneous Approach (ICD-10-PCS; 2017-04-07)
PROC: 0B113F4 Bypass Trachea to Cutaneous with Tracheostomy Device, Percutaneous Approach (ICD-10-PCS; 2017-04-14)
PROC: 0DH63UZ Insertion of Feeding Device into Stomach, Percutaneous Approach (ICD-10-PCS; 2017-04-14)
PROC: 5A12012 Performance of Cardiac Output, Single, Manual (ICD-10-PCS; 2017-04-19)
PROC: 5A1955Z Respiratory Ventilation, Greater than 96 Consecutive Hours (ICD-10-PCS; 2017-05-15)
PROC: 0BH17EZ Insertion of Endotracheal Airway into Trachea, Via Natural or Artificial Opening (ICD-10-PCS; 2017-05-15)
DX: A41.89 Other specified sepsis (principal); J96.01 Acute respiratory failure with hypoxia; J69.0 Pneumonitis due to inhalation of food and vomit; J15.212 Pneumonia due to Methicillin resistant Staphylococcus aureus; I21.09 ST elevation (STEMI) myocardial infarction involving other coronary artery of anterior wall; R57.0 Cardiogenic shock; E43 Unspecified severe protein-calorie malnutrition; I49.01 Ventricular fibrillation; R65.21 Severe sepsis with septic shock; G93.1 Anoxic brain damage, not elsewhere classified; E87.0 Hyperosmolality and hypernatremia; I82.621 Acute embolism and thrombosis of deep veins of right upper extremity; N30.01 Acute cystitis with hematuria; E87.6 Hypokalemia; E86.0 Dehydration; I10 Essential (primary) hypertension; J32.4 Chronic pansinusitis; I48.0 Paroxysmal atrial fibrillation; I25.10 Atherosclerotic heart disease of native coronary artery without angina pectoris; R73.9 Hyperglycemia, unspecified; R62.7 Adult failure to thrive; Z68.26 Body mass index [BMI] 26.0-26.9, adult; Z99.11 Dependence on respirator [ventilator] status
CPT/HCPCS: 36415; 36600; 36620; 70450; 71045; 80048; 80053; 80061; 80074; 80307; 81001; 82550; 82553; 82803; 82962; 83735; 84100; 84478; 84484; 85007; 85014; 85018; 85025; 85027; 85049; 85347; 85610; 85730; 86140; 86403; 86850; 86900; 86901; 87040; 87070; 87076; 87086; 87186; 87205; 92941; 93005; 93010; 93306; 93454; 93970; 94002; 94003; 94640; 94760; 95819; 96372; A9270-GY; C1725; C1769; C1876; C1887; C1894; J0282; J0692; J0696; J1644; J1815; J1940; J2020; J2060; J2250; J2543; J2704; J2997; J3010; J3246; J3370; J3480; J7030; J7040; J7050; J7060; Q9967

== ENCOUNTER 2017-07-21 08:10 | Emergency (ER) | payer OTHER ==
[2017-07-21 09:37] LABS: Basophils % (Auto) 0.4 % (0.0-1.8); Eosinophils # (Auto) 0.2 K/mm3 (0.0-0.4); Eosinophils % (Auto) 1.7 % (0.0-4.3); Hemoglobin 13.7 gm/dl (11.8-15.2); Lymphocytes # (Auto) 1.2 K/mm3 (1.2-5.4); Mean Corpuscular HGB Conc 34 % (32-34); Mean Corpuscular Hemoglobin 30 pg (28-32); Mean Corpuscular Volume 89 fl (84-94); Monocytes # (Auto) 0.7 K/mm3 (0.0-0.8); Monocytes % (Auto) 5.7 % (0.0-7.3); Platelet Count 260 K/mm3 (140-440); Red Blood Count 4.62 M/mm3 (3.65-5.03)
[2017-07-21 09:43] LABS: Bilirubin,Urine NEG (Negative); Blood,Urine NEG (Negative); Color,Urine Amber (Yellow); Mucus,Urine 3+ /HPF; Protein,Urine <15 mg/dL mg/dL (Negative)
[2017-07-21 09:55] LABS: Albumin 3.6 g/dL (3.9-5); BUN/Creatinine Ratio 25; Blood Urea Nitrogen 10 mg/dL (9-20); Calcium 10.3 mg/dL (8.4-10.2); Hemolysis Index 104
[2017-07-21 10:01] LABS: Alanine Aminotransferase 26 units/L (7-56)
--- NOTE | 2017-07-21 10:15 | Emergency Department Report ---
ED General Adult HPI - General Chief complaint: Nausea/Vomiting/Diarrhea Stated complaint: N/V/BEDSORES/CONSTIPATION Time Seen by Provider: 07/21/17 08:41 Source: EMS Mode of arrival: Stretcher Limitations: Physical Limitation - History of Present Illness Initial comments: Patient is a 46-year-old male past medical history of trach collar who presents with shortness of breath that occurred today. History is limited due to patient being on trach collar and nonverbal. - Related Data Previous Rx's Medication Instructions Recorded Last Taken Type ALBUTEROL NEB's [Proventil 0.083% 2.5 mg IH Q3HRT PRN #30 nebu 06/16/17 Unknown Rx NEBS] Amiodarone [Cordarone 200 MG TAB] 200 mg PO BID #60 tablet 06/16/17 Unknown Rx Apixaban [Eliquis] 5 mg PO Q12HR #60 tablet 06/16/17 Unknown Rx Aspirin [Aspirin TAB] 325 mg PO QDAY #30 tablet 06/16/17 Unknown Rx AtorvaSTATin [Lipitor] 20 mg PO QHS #30 tablet 06/16/17 Unknown Rx Clopidogrel [Plavix] 75 mg PO QDAY #30 tablet 06/16/17 Unknown Rx Lisinopril [Zestril TAB] 2.5 mg PO QDAY #30 tablet 06/16/17 Unknown Rx Metoprolol [Lopressor TAB] 12.5 mg PO BID #60 tablet 06/16/17 Unknown Rx Pantoprazole Sodium [Protonix 40 mg FEEDTUBE DAILY #30 packet 06/16/17 Unknown Rx GRANULES] Scopolamine [Transderm-Scop] 1 each TD Q3D #30 patch 06/16/17 Unknown Rx Allergies Allergy/AdvReac Type Severity Reaction Status Date / Time No Known Allergies Allergy Unverified 03/29/17 11:35 ED Review of Systems ROS: Stated complaint: N/V/BEDSORES/CONSTIPATION Other details as noted in HPI ED Past Medical Hx - Past Medical History Hx CVA: Yes (04/13) Hx Heart Attack/AMI: Yes (recent HI; anoxic encephalopathy; CAD - stent placement) Hx Congestive Heart Failure: No Hx Diabetes: No Hx Deep Vein Thrombosis: No Hx Asthma: No Hx COPD: No - Surgical History Hx Pacemaker: No Hx Internal Defibrillator: No - Social History Smoking Status: Unknown if ever smoked - Medications Home Medications: Home Medications Medication Instructions Recorded Confirmed Last Taken Type ALBUTEROL NEB's [Proventil 0.083% 2.5 mg IH Q3HRT PRN #30 nebu 06/16/17 Unknown Rx NEBS] Amiodarone [Cordarone 200 MG TAB] 200 mg PO BID #60 tablet 06/16/17 Unknown Rx Apixaban [Eliquis] 5 mg PO Q12HR #60 tablet 06/16/17 Unknown Rx Aspirin [Aspirin TAB] 325 mg PO QDAY #30 tablet 06/16/17 Unknown Rx AtorvaSTATin [Lipitor] 20 mg PO QHS #30 tablet 06/16/17 Unknown Rx Clopidogrel [Plavix] 75 mg PO QDAY #30 tablet 06/16/17 Unknown Rx Lisinopril [Zestril TAB] 2.5 mg PO QDAY #30 tablet 06/16/17 Unknown Rx Metoprolol [Lopressor TAB] 12.5 mg PO BID #60 tablet 06/16/17 Unknown Rx Pantoprazole Sodium [Protonix 40 mg FEEDTUBE DAILY #30 packet 06/16/17 Unknown Rx GRANULES] Scopolamine [Transderm-Scop] 1 each TD Q3D #30 patch 06/16/17 Unknown Rx ED Physical Exam - General Limitations: Physical Limitation General appearance: alert - Head Head exam: Present: atraumatic - ENT ENT exam: Present: other (trach colar ) - Respiratory Respiratory exam: Present: normal lung sounds bilaterally - Cardiovascular Cardiovascular Exam: Present: regular rate, normal rhythm - GI/Abdominal GI/Abdominal exam: Present: soft - Extremities Exam Extremities exam: Present: other (contractures ) - Back Exam Back exam: Present: other (4x4 cm decubitus ulcer chronic ) - Neurological Exam Neurological exam: Present: alert - Psychiatric Psychiatric exam: Present: other (unable to assess non verbal ) - Skin Skin exam: Present: other (decubitus ulcer ) ED Course Vital Signs 07/21/17 07/21/17 07/21/17 08:14 08:40 09:37 Temperature 97 F L Pulse Rate 59 L 56 L Respiratory 24 Rate Blood Pressure 105/73 O2 Sat by Pulse 95 Oximetry O2 Sat by Pulse 96 Oximetry [ Assessment] 07/21/17 07/21/17 09:53 10:10 Temperature 98.2 F Pulse Rate Respiratory 12 Rate Blood Pressure O2 Sat by Pulse 100 Oximetry O2 Sat by Pulse Oximetry [ Assessment] ED Medical Decision Making - Lab Data Result diagrams: 07/21/17 09:01 07/21/17 09:01 Lab Results 07/21/17 07/21/17 07/21/17 Range/Units 09:01 09:01 09:01 WBC 12.3 H (4.5-11.0) K/mm3 RBC 4.62 (3.65-5.03) M/mm3 Hgb 13.7 (11.8-15.2) gm/dl Hct 41.0 (35.5-45.6) % MCV 89 (84-94) fl MCH 30 (28-32) pg MCHC 34 (32-34) % RDW 16.0 H (13.2-15.2) % Plt Count 260 (140-440) K/mm3 Lymph % (Auto) 10.0 L (13.4-35.0) % Ransom % (Auto) 5.7 (0.0-7.3) % Eos % (Auto) 1.7 (0.0-4.3) % Baso % (Auto) 0.4 (0.0-1.8) % Lymph # 1.2 (1.2-5.4) K/mm3 Ransom # 0.7 (0.0-0.8) K/mm3 Eos # 0.2 (0.0-0.4) K/mm3 Baso # 0.0 (0.0-0.1) K/mm3 Seg Neutrophils % 82.2 H (40.0-70.0) % Seg Neutrophils # 10.1 H (1.8-7.7) K/mm3 Sodium 140 (137-145) mmol/L Potassium 4.3 (3.6-5.0) mmol/L Chloride 100.6 (98-107) mmol/L Carbon Dioxide 26 (22-30) mmol/L Anion Gap 18 mmol/L BUN 10 (9-20) mg/dL Creatinine 0.4 L (0.8-1.5) mg/dL Estimated GFR > 60 ml/min BUN/Creatinine Ratio 25 % Glucose 116 H (75-100) mg/dL Calcium 10.3 H (8.4-10.2) mg/dL Total Bilirubin 0.90 (0.1-1.2) mg/dL AST 29 (5-40) units/L ALT 26 (7-56) units/L Alkaline Phosphatase 111 (35-129) units/L Total Protein 7.7 (6.3-8.2) g/dL Albumin 3.6 L (3.9-5) g/dL Albumin/Globulin Ratio 0.9 % Urine Color [place] (Yellow) Urine Turbidity Clear (Clear) Urine pH 6.0 (5.0-7.0) Ur Specific [place] 1.016 (1.003-1.030) Urine Protein <15 mg/dl (Negative) mg/dL Urine Glucose (UA) Neg (Negative) mg/dL Urine Ketones Neg (Negative) mg/dL Urine Blood Neg (Negative) Urine Nitrite Neg (Negative) Ur Reducing Substances Not Reportable Urine Bilirubin Neg (Negative) Urine Ictotest Not Reportable Urine Urobilinogen 4.0 (<2.0) mg/dL Ur Leukocyte Esterase Mod (Negative) Urine WBC (Auto) 15.0 H (0.0-6.0) /HPF Urine RBC (Auto) 26.0 (0.0-6.0) /HPF U Epithel Cells (Auto) 1.0 (0-13.0) /HPF Urine WBC Clumps 1+ /HPF Urine Mucus 3+ /HPF Urine Yeast (Budding) 3+ /HPF - Radiology Data Radiology results: report reviewed Chest x-ray: Shows no acute cardiopulmonary disease - Medical Decision Making Chief Medical diagnosis: Shortness of breath secondary to trach collar instruction Differential medical diagnosis: Electrolyte abnormality, pneumonia I will get chest xray, cbc and bmp labwork is unremarkable. Chest xray is unremarkable I will send patient home. Pt was previously just seen and admitted to the hospital for an extended period of time. Discussed with case management patient will need to go to hospice. Pt' s [employer] dropped him off after the payment for [facility]'s care per social studies department chair. Pt has been medically cleared. Critical care attestation.: If time is entered above; I have spent that time in minutes in the direct care of this critically ill patient, excluding procedure time. ED Disposition Clinical Impression: SOB (shortness of breath), Social problem Disposition: DC-01 TO HOME OR SELFCARE Is pt being admited?: No Does the pt Need Aspirin: No Condition: Stable Referrals: JUAN J BARTLETT MD [Staff Physician] - 3-5 Days
--- NOTE | 2017-07-21 10:52 | XRay Report ---
Single view chest: Compared to 05/16/17. History: Difficulty breathing. Findings: Cardiomegaly. Trachea is midline. Tip of tracheostomy tube in normal position. No consolidation, pneumothorax or pleural effusion. Impression: No acute cardiopulmonary findings.
[2017-07-22 20:04] VITALS: BP 113/70
== END 2017-07-22 20:04 | disposition home or self-care (01) ==
LOC: EEVIPCON 08:10 → ED 08:10
DX: R06.02 Shortness of breath (principal); I25.2 Old myocardial infarction; Z86.73 Personal history of transient ischemic attack (TIA), and cerebral infarction without residual deficits
CPT/HCPCS: 36415; 71045; 80053; 81001; 82962; 85025; 94760; 99284